=== PATIENT | male | born 1970 | race Caucasian/White ===

== ENCOUNTER 2019-04-19 11:00 | Outpatient (RCR) | payer SELFPAY | END 2019-05-19 00:01 | LOC: CR 11:00 | PROVIDERS: Family Provider Internal Medicine; Referring Provider Internal Medicine Cardiovascular Disease; Visit Provider Internal Medicine Cardiovascular Disease | DX: I20.8 Other forms of angina pectoris (principal) | CPT/HCPCS: 93798 ×9 ==

== ENCOUNTER 2019-05-26 09:32 | Outpatient (RCR) | payer SELFPAY | END 2019-06-19 23:59 | disposition home or self-care (01) | LOC: CR 09:32 | PROVIDERS: Family Provider Internal Medicine; PCP Internal Medicine; Referring Provider Internal Medicine Cardiovascular Disease; Visit Provider Internal Medicine Cardiovascular Disease | DX: I20.8 Other forms of angina pectoris (principal) ==

== ENCOUNTER 2019-06-08 07:18 | Day surgery (SDC) | payer MEDICARE, SELFPAY ==
[2019-06-05 12:13] VITALS: BMI 35.8
[2019-06-08 07:40] VITALS: BP 147/86; PULSE 77; RESP 18; TEMP 36.7; O2SAT 99
--- NOTE | 2019-06-08 08:06 | PM.HPUD ---
H&P update H&P Update: DATE OF SURGERY/PROCEDURE: 06/08/19 DATE H&P PERFORMED: 06/01/19 H&P UPDATE INFORMATION: H&P completed within last 30 days and No changes to prior documentation PLANNED PROCEDURE: Operation Date: 06/08/19 08:55 Proposed Procedures p Excision Mass/Lesion/Cyst Upper Torso/He/Back(Not Applicable) - Juventino Lopez MD Full H&P Perinent History: Medical/Surgical History: Medical History (Updated 06/01/19 @ 17:13 by Juventino Lopez MD) Anemia (Acute) CAD (coronary artery disease) (Acute) Cardiomyopathy (Acute) CHF (congestive heart failure) (Acute) Chronic anticoagulation (Acute) CKD (chronic kidney disease) (Acute) Compartment syndrome (Acute) Depression (Acute) Diabetes (Acute) Foot drop, left (Acute) H/O acute myocardial infarction (Acute) H/O deep venous thrombosis (Acute) Hyperlipidemia (Acute) Hypertension (Acute) Hypothyroidism (Acute) Osteoarthritis of spine (Acute) Port-A-Cath in place (Acute) Subcutaneous mass of back (Acute) Family History: Family History (Updated 06/01/19 @ 13:29 by HUSSEIN Alvarez) Grandfather Cancer skin cancer Parkinson disease Brother Hypertension Father Heart disease Mother Hypertension Stroke Aneurysm Grandmother Aneurysm Other Crohn disease Denies family history of Anesthesia complication Bleeding disorder Social History: Social History Smoking and tobacco status: never smoked Alcohol intake: former Former alcohol use details: Only holidays Lives independently: Yes Household members: significant other Marital status: Single Current occupational status: disabled History of recent travel: No
--- NOTE | 2019-06-08 08:08 | ANES.PREANES ---
Pre-Anesthetic Assessment Pre-Anesthetic Assessment: Height/Weight: Height 1.68 m Weight 100.698 kg Preop Diagnosis: Mass back Proposed Procedure: Operation Date: 06/08/19 08:55 Proposed Procedures p Excision Mass/Lesion/Cyst Upper Torso/He/Back(Not Applicable) - Juventino Lopez MD Last intake: Intake Last Liquid Date 06/08/19 Last Liquid Time 05:30 Last Solid Date 06/07/19 Last Solid Time 19:00 Social: Social History: No alcohol and No tobacco Exam: Pre-Anes Outpt Exam: alert, oriented x 3, clear to auscultation bilaterally and regular rate & rhythm Airway: Submandibular: WNL Cervical ROM: WNL MP: 2 Dentition: Chipped History/ROS: No significant history except as noted Pulmonary: Pulmonary: Sleep apnea CV/HEM: CV/HEM: CAD, CHF, DVT, HTN and FL Comments: PE : : Chronic renal Insufficiency (stg 3) Hepatic: Hepatic: None reported GI: GI: None reported Metabolic: Metabolic: DM, Hyperlipidemia, Morbid obesity and Thyroid Musc/skel: Musc/skel: Lower Back Pain, OA/DJD and Weakness (Left foot) Neuropsych: Neuropsych: Anxiety, Depression and Neuropathy (Left foot) Anesthetic Plan: Anesthesia: MAC Risk of > 500 ml blood loss (7ml/kg in children): No PFSH Anesthesia PFSH: Medical History Anemia (Acute) CAD (coronary artery disease) (Acute) Cardiomyopathy (Acute) CHF (congestive heart failure) (Acute) Chronic anticoagulation (Acute) CKD (chronic kidney disease) (Acute) Compartment syndrome (Acute) Depression (Acute) Diabetes (Acute) Foot drop, left (Acute) H/O acute myocardial infarction (Acute) H/O deep venous thrombosis (Acute) Hyperlipidemia (Acute) Hypertension (Acute) Hypothyroidism (Acute) Osteoarthritis of spine (Acute) Port-A-Cath in place (Acute) Subcutaneous mass of back (Acute) Surgical History H/O colonoscopy (Acute) 08/2015 H/O esophagogastroduodenoscopy (Acute) 08/2015 H/O removal of testicle (Acute) left H/O skin graft (Acute) H/O vasectomy (Acute) History of appendectomy (Acute) History of coronary artery stent placement (Acute) 5x History of inguinal hernia repair, bilateral (Acute) 1999 History of removal of Port-a-Cath (Acute) Hx of cholecystectomy (Acute) Family History Grandfather Cancer skin cancer Parkinson disease Brother Hypertension Father Heart disease Mother Hypertension Stroke Aneurysm Grandmother Aneurysm Other Crohn disease Denies family history of Anesthesia complication Bleeding disorder Social History Smoking and tobacco status: never smoked Alcohol intake: former Former alcohol use details: Only holidays Lives independently: Yes Household members: significant other Marital status: Single Current occupational status: disabled History of recent travel: No Data Anesthesia Cardiac Studies: No Data to Display
[2019-06-08 08:26] LABS: Glucose Point of Care 172 mg/dL (70-110)
[2019-06-08] MEDS: sodium chloride 0.9% 1,000 ML 30 ML IV (08:54)
[2019-06-08] MEDS: lidocaine 1% INJ 20 mL SUBCUT (09:25)
--- NOTE | 2019-06-08 09:54 | PM.OP ---
Operative Report Date of procedure: 06/08/19 Pre-op Diagnosis: Mass back Post-op Diagnosis: 6 x 6 cm lipoma on the back Procedure Done: Excision of subcutaneous mass on the back Specimens removed/disposition: Subcutaneous mass on the back Surgeon: Juventino Lopez Anesthesia: MAC Estimated blood loss (mL): 10 Condition: stable Disposition: same day Procedure: The patient was taken to the operating room and placed in the right lateral position under MAC after IV antibiotic had been administered. The area around the palpable mass was prepped and draped in a sterile manner. A 5 cm transverse incision was made using 15 blade, subcutaneous tissue was divided using electrocautery and the lipoma was dissected free from the surrounding subcutaneous tissue and underlying muscular fascia. The wound was irrigated saline, hemostasis ensured and subcutaneous tissue was approximated using running 3-0 Vicryl suture and skin was closed using running subcuticular 4-0 Monocryl suture and surgical glue. Pressure dressings were applied. Patient was stable throughout the procedure.
[2019-06-08 09:59] VITALS: BP 105/73; PULSE 78; RESP 18; TEMP 36.2; O2SAT 94
[2019-06-08 10:13] VITALS: BP 127/68; PULSE 78; RESP 18; O2SAT 95
== END 2019-06-08 10:30 | disposition home or self-care (01) ==
PROVIDERS: Family Provider Internal Medicine; PCP Internal Medicine; Visit Provider Surgery
PROC: (CPT 11406; principal; 2019-06-08 08:55)
DX: D17.1 Benign lipomatous neoplasm of skin and subcutaneous tissue of trunk (principal); I25.10 Atherosclerotic heart disease of native coronary artery without angina pectoris; E11.22 Type 2 diabetes mellitus with diabetic chronic kidney disease; I13.0 Hypertensive heart and chronic kidney disease with heart failure and stage 1 through stage 4 chronic kidney disease, or unspecified chronic kidney disease; N18.9 Chronic kidney disease, unspecified; I50.9 Heart failure, unspecified; Z86.718 Personal history of other venous thrombosis and embolism; E78.5 Hyperlipidemia, unspecified; E03.9 Hypothyroidism, unspecified; M19.90 Unspecified osteoarthritis, unspecified site; Z82.49 Family history of ischemic heart disease and other diseases of the circulatory system; Z79.84 Long term (current) use of oral hypoglycemic drugs; Z79.01 Long term (current) use of anticoagulants
CPT/HCPCS: 11406; 12032; 12345; 36416; 82962; 88309; 96365; 96372; J0690; J1642; J2001; J2250; J2704; J3010; J3490; J7030

== ENCOUNTER 2019-06-22 10:24 | Outpatient (RCR) | payer SELFPAY | END 2019-07-18 23:59 | disposition home or self-care (01) | LOC: CR 10:24 | PROVIDERS: Family Provider Internal Medicine; PCP Internal Medicine; Referring Provider Internal Medicine Cardiovascular Disease; Visit Provider Internal Medicine Cardiovascular Disease | DX: I20.8 Other forms of angina pectoris (principal) ==

== ENCOUNTER 2019-07-06 07:37 | Outpatient (CLI) | payer MEDICARE, MEDICAID, SELFPAY ==
[2019-07-06 07:47] VITALS: BP 141/58; PULSE 81; RESP 16; TEMP 36.5; O2SAT 99; BMI 36.9
[2019-07-06 08:13] LABS: Estmated Average Glucose 160; Hemoglobin A1C 7.2 % (4.0-6.0); INR 1.22 (0.8-1.2)
[2019-07-06 08:29] LABS: Alanine Aminotransferase 25 U/L (0-41); Albumin Level 3.8 g/dL (3.5-5.2); Alkaline Phosphatase 120 IU/L (40-130); Anion Gap 17.2 (5-19); Aspartate Amino Transferase 24 U/L (0-40); Blood Urea Nitrogen 30 mg/dL (6-20); Calcium 9.4 mg/dL (8.5-10.5); Carbon Dioxide 25 mmol/L (22-29); Chloride 105 mmol/L (98-107); Creatinine Clr Calc Pharmacy 61.6736; Globulin 2.8 g/dL (1.3-4.6); Glomerular Filtration Rate 45.8 mL/min (90-130); Glucose 228 mg/dL (65-115); Potassium 4.2 mmol/L (3.5-5.1); Sodium 143 mmol/L (136-145); Thyroid Stimulating Hormone 2.27 uIU/mL (0.27-4.20); Total Bilirubin 0.5 mg/dL (0.15-1.2); Total Protein 6.6 g/dL (6.6-8.7)
== END 2019-07-06 07:38 | disposition home or self-care (01) ==
PROVIDERS: Family Provider Internal Medicine; PCP Internal Medicine; Visit Provider Internal Medicine
DX: N18.9 Chronic kidney disease, unspecified (principal); I25.10 Atherosclerotic heart disease of native coronary artery without angina pectoris; E11.9 Type 2 diabetes mellitus without complications; E03.9 Hypothyroidism, unspecified
CPT/HCPCS: 36591; 80053; 83036; 84443; 85610

== ENCOUNTER 2019-07-09 17:22 | Emergency (ER) | payer MEDICARE, MEDICAID, SELFPAY ==
[2019-07-09] VITALS (7 sets, daily range): BP systolic 142–157; BP diastolic 80–89; PULSE 79–91; RESP 16–18; TEMP 36.4; O2SAT 94–97; BMI 36.9
--- NOTE | 2019-07-09 18:33 | ECG_ITS ---
Measurements Intervals [place] Rate: 85 P: 0 [place]: 174 QRS: -15 QRSD: 106 T: 56 QT: 358 QTc: 426 SINUS RHYTHM POSSIBLE ANTERIOR MYOCARDIAL INFARCTION [30 ms Q WAVE IN V3/V4, OR R < 0.2 mV IN V4], PROBABLY OLD INTERPRETATION BASED ON A DEFAULT AGE OF 40 YEARS Compared to ECG 02/26/2019 13:57:42 Right-axis deviation no longer present Myocardial infarct finding still present Electronically Signed On 07-10-2019 14:11:10 ECOLOGY PROFESSOR by Vinayak Bejarano M.D. [email or web address]
--- NOTE | 2019-07-09 18:38 | ED_ITS ---
Entered by Ciara Retana, acting as scribe for Sean Miller MD, [facility] [place] Jul 09, 2019 17:22 HPI - Chest Pain General: Chief Complaint: Chest Pain Stated Complaint: CP, HTN Time Seen by Provider: 07/09/19 18:38 Source: patient Mode of arrival: ambulatory Limitations: no limitations History of Present Illness: HPI narrative: 49 yo Male presents to ED with complaint of chest pain. Pt states that his pain is severe at times. Pt states that he has taken 4 nitros and his pain is down to a 3/10. Pt states his pain started about 3 hours ago. Pt states that he was doing [employer] work at [employer] when he started having his pains. Pt states that he has had nausea and weakness. Pt states that he had an extreme headache before the nitro and he has tightness and pressure in his chest. Pt states that the pain radiates into his left arm, jaw, and upper back. MD complaint: chest pain Pertinent past history: coronary artery disease Onset (ago): hour(s) (3) Timing of current episode: episodic and still present Prior episodes: Yes Onset: during rest Pain location: left chest Pain radiation: left arm, back, neck and jaw/teeth Pain scale (0-10): 3 Quality: tightness Relieving factors: nitroglycerin Exacerbating factors: nothing Context: history of DVT/PE Associated symptoms: Reports nausea; Deny abdominal pain, dyspnea, fever(s), palpitations or vomiting Treatment prior to arrival: nitroglycerin Risk Factors: Pulmonary embolism risk factors: history of pulmonary embolism Review of Systems General: Reports: 10 or more systems reviewed and unremarkable except in HPI and below Const: Denies: fever, chills or body aches Eyes: Denies: change in vision or blurry vision ENMT: Denies: throat pain, enlarged tonsils, painful swallowing, hoarseness, mouth pain or swelling of lips/tongue Card: Reports: chest pain; Denies: palpitations, irregular heart rhythm, edema or swelling of feet/ankles Resp: Denies: shortness of breath, productive cough or non-productive cough GI: Reports: nausea; Denies: abdominal pain or vomiting : Denies: flank pain, painful urination, urinary frequency, urinary urgency or urinary hesitancy Musc: Denies: neck pain, back pain or extremity swelling Skin/Breast: Denies: rash, itching or redness Neuro: Denies: headache, numbness in extremities or weakness in extremities Endo: Denies: excessive urination, excessive thirst or tired all the time PFSH ED PFSH: Medical History Anemia CAD (coronary artery disease) Cardiomyopathy CHF (congestive heart failure) Chronic anticoagulation CKD (chronic kidney disease) Compartment syndrome Depression Diabetes Foot drop, left H/O acute myocardial infarction H/O deep venous thrombosis Hyperlipidemia Hypertension Hypothyroidism Osteoarthritis of spine Port-A-Cath in place Subcutaneous mass of back Lipoma Surgical History H/O colonoscopy 08/2015 H/O esophagogastroduodenoscopy 08/2015 H/O removal of testicle left H/O skin graft H/O vasectomy History of appendectomy History of coronary artery stent placement 5x History of excision of mass 06/08/2019: Subcutaneous mass on back History of inguinal hernia repair, bilateral 2000 History of removal of Port-a-Cath Hx of cholecystectomy Family History Grandfather Cancer skin cancer Parkinson disease Brother Hypertension Father Heart disease Mother Hypertension Stroke Aneurysm Grandmother Aneurysm Other Crohn disease Denies family history of Anesthesia complication Bleeding disorder Social History Smoking and tobacco status: never smoked Alcohol intake: former Former alcohol use details: Only holidays Lives independently: Yes Household members: significant other Marital status: Single Current occupational status: disabled History of recent travel: No Physical Exam Const: COMMON NORMALS: no apparent distress, average body habitus, oriented x3, no limitations, healthy appearing, alert and well nourished HENMT: COMMON NORMALS: normocephalic, head/scalp atraumatic and moist oral mucous membranes HEAD & SCALP: normocephalic and atraumatic Eye: COMMON NORMALS: PERRL, EOMs intact bilaterally, conjunctivae normal and no scleral icterus CONJUNCTIVA: Yes conjunctivae normal PUPIL: Yes PERRL Neck/C-Spine: COMMON NORMALS: full ROM, supple, no meningeal signs, no JVD and no carotid bruits Chest: COMMONS NORMALS: inspection of chest normal and palpation of chest normal Resp: COMMON NORMALS: normal respiratory effort, no retractions, no use of accessory muscles, clear to auscultation bilaterally and percussion normal AUSCULTATION: clear to auscultation bilaterally PERCUSSION: percussion normal Cardio: COMMON NORMALS: no JVD, regular rate, regular rhythm, S1 normal heart sound, S2 normal heart sound, no gallops, no clicks, no murmurs, no rub and peripheral pulses 2+ throughout RATE: regular rate RHYTHM: regular rhythm HEART SOUNDS: S1 normal and S2 normal PERIPHERAL PULSES: pulses 2+ throughout GI: COMMON NORMALS: normal to inspection, nondistended, normoactive bowel sounds, soft to palpation, no hepatosplenomegaly, no masses and no bruits PALPATION: Yes soft, Yes tender Details: other (epigastric) and Yes no hepatosplenomegaly : COMMON NORMALS: Yes no CVA tenderness BLADDER/KIDNEY EXAM: Yes no CVA tenderness Back/Pelvis: COMMON NORMALS: no CVA tenderness Extremity: COMMON NORMALS: normal to inspection, full ROM, normal capillary refill, no calf tenderness and no pedal edema Neuro: COMMON NORMALS: oriented x3 SENSORIUM/ORIENTATION: Yes alert MENINGEAL SIGNS: Yes no meningeal signs Skin: COMMON NORMALS: no rashes or lesions noted, no wounds, skin turgor normal, no jaundice, no petechiae and no mottling GENERAL SKIN EXAM: no rashes or lesions noted and turgor normal Course Vital Signs: Vital signs: Vital Signs Temperature 97.5 F L 07/09/19 17:28 Pulse Rate 91 07/09/19 17:28 Respiratory Rate 16 07/09/19 17:28 Blood Pressure 151/89 07/09/19 17:28 Pulse Oximetry 97 07/09/19 17:28 MDM - Chest Pain MDM Narrative: Medical decision making narrative: 49 year old male with a history of CAD who presents to the ED with complaints of chest pain. Evaluation in the ED shows a normal d-dimer, normal chest CT, mildly elevated troponin with a flat delta. Mildly elevated lipase. He is managed as a case of mild pancreatitis. After I discussed this with him he said he has been having some abdominal symptoms which he did not tell me before. We will discharge him home on oral pain medication. He is to start on a liquid diet and advance his diet. Is also to follow-up with his primary care provider. Lab Data: Labs: Lab Results 07/09/19 07/09/19 07/09/19 Range/Units 18:45 18:45 18:45 WBC 8.8 (4.0-10.0) 10^3/ uL RBC 4.02 L (4.1-5.3) 10^6/u L Hgb 11.3 L (11.7-16.6) g/dL Hct 34.5 L (42.0-52.0) % MCV 85.8 (80-94) fL MCH 28.1 (28.0-34.0) pg MCHC 32.8 (30.0-36.0) g/dL RDW 14.9 (12.1-15.1) % Plt Count 295 (130-400) 10^3/c mm MPV 9.2 (7.4-10.4) fL Neut % (Auto) 63.6 % Lymph % (Auto) 24.7 % [place] % (Auto) 8.1 % Eos % (Auto) 2.4 % Baso % (Auto) 1.0 % Neut # (Auto) 5.6 (1.8-7.7) 10^3/u L Lymph # (Auto) 2.2 (0.8-4.8) 10^3/u L [place] # (Auto) 0.7 (0.2-0.9) 10^3/u L Eos # (Auto) 0.2 (0.0-0.8) 10^3/u L Baso # (Auto) 0.1 (0.0-0.1) 10^3/u L Nucleated RBC % (a uto) 0 % Nucleated RBCs # 0.0 /100WBC D-Dimer <= 0.27 (0-0.59) ug/mIFE U Sodium (136-145) mmol/L Potassium (3.5-5.1) mmol/L Chloride (98-107) mmol/L Carbon Dioxide (22-29) mmol/L Anion Gap (5-19) BUN (6-20) mg/dL Creatinine (0.7-1.2) mg/dL GFR Calculation (90-130) mL/min Glucose (65-115) mg/dL Calcium (8.5-10.5) mg/dL Total Bilirubin (0.15-1.2) mg/dL AST (0-40) U/L ALT (0-41) U/L Alkaline Phosphata se (40-130) IU/L Troponin T Baselin e 26 H (0-15) ng/mL Troponin T 120 Min [place] (0-15) ng/mL Delta Troponin T (0-10) ABS# Total Protein (6.6-8.7) g/dL Albumin (3.5-5.2) g/dL Globulin (1.3-4.6) g/dL Lipase (13-60) U/L 07/09/19 07/09/19 Range/Units 18:45 20:40 WBC (4.0-10.0) 10^3/ uL RBC (4.1-5.3) 10^6/u L Hgb (11.7-16.6) g/dL Hct (42.0-52.0) % MCV (80-94) fL MCH (28.0-34.0) pg MCHC (30.0-36.0) g/dL RDW (12.1-15.1) % Plt Count (130-400) 10^3/c mm MPV (7.4-10.4) fL Neut % (Auto) % Lymph % (Auto) % [place] % (Auto) % Eos % (Auto) % Baso % (Auto) % Neut # (Auto) (1.8-7.7) 10^3/u L Lymph # (Auto) (0.8-4.8) 10^3/u L [place] # (Auto) (0.2-0.9) 10^3/u L Eos # (Auto) (0.0-0.8) 10^3/u L Baso # (Auto) (0.0-0.1) 10^3/u L Nucleated RBC % (a uto) % Nucleated RBCs # /100WBC D-Dimer (0-0.59) ug/mIFE U Sodium 135 L (136-145) mmol/L Potassium 3.9 (3.5-5.1) mmol/L Chloride 100 (98-107) mmol/L Carbon Dioxide 22 (22-29) mmol/L Anion Gap 16.9 (5-19) BUN 30 H (6-20) mg/dL Creatinine 1.5 H (0.7-1.2) mg/dL GFR Calculation 49.3 L (90-130) mL/min Glucose 119 H (65-115) mg/dL Calcium 9.7 (8.5-10.5) mg/dL Total Bilirubin 0.5 (0.15-1.2) mg/dL AST 20 (0-40) U/L ALT 20 (0-41) U/L Alkaline Phosphata se 133 H (40-130) IU/L Troponin T Baselin e (0-15) ng/mL Troponin T 120 Min [place] 26.58 H (0-15) ng/mL Delta Troponin T 0.58 (0-10) ABS# Total Protein 6.9 (6.6-8.7) g/dL Albumin 3.9 (3.5-5.2) g/dL Globulin 3.0 (1.3-4.6) g/dL Lipase 80 H (13-60) U/L Imaging Data^: CT Chest: Radiologist's impression: [place] [address] CT Scan Report Signed Patient: Rei Queen IIUnit #: [id number] : 1970Acct#:[id number] Age/Sex: 49 / MADM Date: 07/09/19 [facility] Attending Dr: Ordering Provider/Ordering MD: Sean Miller MD, [facility] [place] Date of Service: 07/09/19 Procedure(s): CT chest [facility] [address] Accession Number(s): [id number] Report Number: [id number] PROCEDURE INFORMATION: Exam: CT Chest Without Contrast Exam date and time: 07/09/2019 9:35 PM Age: 49 years old Clinical indication: Chest pain; Prior surgery; Surgery type: Cabg, port; Additional info: Chest pain, shortness of breath. TECHNIQUE: Imaging protocol: Computed tomography of the chest without contrast. Total DLP: 906.33 mGy-cm Radiation optimization: All CT scans at this facility use at least one of these dose optimization techniques: automated exposure control; mA and/or kV adjustment per patient size (includes targeted exams where dose is matched to clinical indication); or iterative reconstruction. COMPARISON: CTA Chest-Pulmonary Emb [id number] 02/26/2019 2:22 PM FINDINGS: Tubes, catheters and devices: There is a left-sided [id number] with tip in the superior vena cava. Lungs: There are moderate emphysematous changes. There is some dependent atelectasis. No airspace consolidation. Pleural space: Unremarkable. No pneumothorax. No pleural effusion. Heart: Sternotomy wires and mediastinal surgical clips are present, consistent with previous coronary arterial bypass grafting. Mediastinum: A small hiatal hernia is present. Aorta: Unremarkable. No aortic aneurysm. Lymph nodes: Unremarkable. No enlarged lymph nodes. Gallbladder and bile ducts: There has been a cholecystectomy. Bones/joints: Moderate degenerative changes are noted in the spine. No acute fracture. Soft tissues: Unremarkable. Other findings: There are calcified granulomas. No significant pneumonitis. CT/CT chest wo con [id number] IMPRESSION: Mild volume loss in the lungs. No acute abnormality. Radiation Dose CTDIVOL = (mGy): DLP = 906.33 (mGy-cm) Dictated By:Nhung Rodriguez Signed By:Rae Rodriguezigned Date/Time:07/09/192217 DD/ 15 EKG Data^: EKG 1: Attestation: I personally reviewed and interpreted this EKG as follows: EKG interpretation date: 07/09/19 EKG interpretation time: 17:59 Prior EKG tracings: not available for review Interpretation: Normal sinus rhythm. Heart rate 85 bpm. Normal axis. No acute ST changes. EKG 2: Attestation: I personally reviewed and interpreted this EKG as follows: EKG interpretation date: 07/09/19 EKG interpretation time: 20:11 Prior EKG tracings: available for review Interpretation: Unchanged from earlier today Discharge Plan Discharge Patient Disposition: Home, Self-Care Clinical Impression: Acute pancreatitis Qualifiers: Pancreatitis type: unspecified pancreatitis type Acute pancreatitis complication: no infection or necrosis Qualified Code(s): K85.90 - Acute pancreatitis without necrosis or infection, unspecified Condition: Stable Prescriptions: New [place] 5-325 mg tablet 1 tab PO Q8H PRN (Reason: pancreatitis) Qty: 10 RF: 0 Continued (DME) diabetic shoes Qty: 1 RF: 0 promethazine 25 mg tablet 25 mg PO Q6H PRN (Reason: Nausea And Vomiting) RF: 0 multivitamin [Daily Multi-Vitamin] Tablet 1 tab PO QAM RF: 0 methocarbamol 750 mg tablet 750 mg PO TID PRN (Reason: Muscle Spasm) RF: 0 glipizide 10 mg tablet 10 mg PO ONCE RF: 0 levothyroxine 88 mcg capsule 88 mcg PO ONCE RF: 0 Eliquis 5 mg tablet 5 mg PO BID RF: 0 isosorbide dinitrate 30 mg tablet 30 mg PO BID RF: 0 metoprolol tartrate 50 mg tablet 50 mg PO BID RF: 0 nitroglycerin [Nitrostat] 0.4 mg tablet, sublingual 0.4 mg SUBLINGUAL Q5M PRN (Reason: Chest Pain) RF: 0 metformin 500 mg tablet 500 mg PO BID RF: 0 Trulicity 0.75 mg/0.5 mL pen injector 0.75 mg SUBCUT ONCE RF: 0 furosemide [Lasix] 40 mg tablet 40 mg PO QAM RF: 0 amlodipine 5 mg tablet 5 mg PO ONCE RF: 0 aspirin 81 mg tablet,delayed release (DR/EC) 81 mg PO ONCE RF: 0 atorvastatin 40 mg tablet 40 mg PO ONCE RF: 0 hydralazine 25 mg tablet 25 mg PO BID RF: 0 tramadol 50 mg PO TID PRN (Reason: Pain) RF: 0 hydrocodone-acetaminophen [[place]] 5-325 mg tablet 1 tab PO Q6H Qty: 20 RF: 0 Discharge Orders: Discharge Order (Routine); Ordered 07/09/19 Ordered By: Sean Miller Referrals: Kp Montanez DO [Primary Care Provider] - 1-3 days Patient Instructions: Pancreatitis (ED) Activity Restrictions/Additional Instructions: Return for any new or worsening symptoms. Start with a liquid diet tomorrow and gradually advance your diet to regular foods if you have no nausea or vomiting. Take the pain medication as needed for pain. Coding Level of Care Code ED [employer] Lecturer for Chg Fwd Exam Comprehensive The documentation recorded by the Lainey contreras Carmen, accurately reflects the service I personally performed and the decisions made by Paul gallegos Adegoke I, MD, [facility] [place] Jul 09, 2019 17:22
[2019-07-09 19:16] LABS: Basophils # 0.1 10^3/uL (0.0-0.1); Eosinophils # 0.2 10^3/uL (0.0-0.8); Eosinophils % 2.4 %; Hematocrit 34.5 % (42.0-52.0); Hemoglobin 11.3 g/dL (11.7-16.6); Lymphocytes # 2.2 10^3/uL (0.8-4.8); Lymphocytes % 24.7 %; Mean Corpuscular HGB Conc 32.8 g/dL (30.0-36.0); Mean Corpuscular Hemoglobin 28.1 pg (28.0-34.0); Mean Corpuscular Volume 85.8 fL (80-94); Mean Platelet Volume 9.2 fL (7.4-10.4); Monocytes # 0.7 10^3/uL (0.2-0.9); Monocytes % 8.1 %; Neutrophils # 5.6 10^3/uL (1.8-7.7); Neutrophils % 63.6 %; Nucleated Red Blood Cells % 0 %; Platelet Count 295 10^3/cmm (130-400); Red Blood Count 4.02 10^6/uL (4.1-5.3); Red Cell Distribution Width 14.9 % (12.1-15.1); White Blood Count 8.8 10^3/uL (4.0-10.0)
[2019-07-09 19:26] LABS: D Dimer <= 0.27 ug/mIFEU (0-0.59)
[2019-07-09] MEDS: promethazine 25 mg/mL SDV 1 mL IM (19:28)
[2019-07-09 19:30] LABS: Alanine Aminotransferase 20 U/L (0-41); Albumin Level 3.9 g/dL (3.5-5.2); Alkaline Phosphatase 133 IU/L (40-130); Anion Gap 16.9 (5-19); Aspartate Amino Transferase 20 U/L (0-40); Blood Urea Nitrogen 30 mg/dL (6-20); Calcium 9.7 mg/dL (8.5-10.5); Carbon Dioxide 22 mmol/L (22-29); Chloride 100 mmol/L (98-107); Glomerular Filtration Rate 49.3 mL/min (90-130); Glucose 119 mg/dL (65-115); Lipase 80 U/L (13-60); Potassium 3.9 mmol/L (3.5-5.1); Sodium 135 mmol/L (136-145); Total Bilirubin 0.5 mg/dL (0.15-1.2); Total Protein 6.9 g/dL (6.6-8.7)
[2019-07-09] MEDS: nitroglycerin 1 gm/inch oint Pkt 1 INCH TOPICAL (19:30)
[2019-07-09 19:45] LABS: Troponin(5th) Baseline 26 ng/mL (0-15)
--- NOTE | 2019-07-09 20:33 | ECG_ITS ---
Measurements Intervals [place] Rate: 78 P: 6 [place]: 180 QRS: -2 QRSD: 90 T: 56 QT: 379 QTc: 433 SINUS RHYTHM POSSIBLE ANTERIOR MYOCARDIAL INFARCTION , OF INDETERMINATE AGE [30 ms Q WAVE IN V3 V3/V4, OR R < 0.2 mV IN V4] Compared to ECG 02/26/2019 13:57:42 Right-axis deviation no longer present Myocardial infarct finding still present Electronically Signed On 07-10-2019 14:14:14 DATA VISUALIZATION DEVELOPER by Vinayak Bejarano M.D. [email or web address]
--- NOTE | 2019-07-09 21:14 | CTR_ITS ---
PROCEDURE INFORMATION: Exam: CT Chest Without Contrast Exam date and time: 07/09/2019 9:35 PM Age: 49 years old Clinical indication: Chest pain; Prior surgery; Surgery type: Cabg, port; Additional info: Chest pain, shortness of breath. TECHNIQUE: Imaging protocol: Computed tomography of the chest without contrast. Total DLP: 906.33 mGy-cm Radiation optimization: All CT scans at this facility use at least one of these dose optimization techniques: automated exposure control; mA and/or kV adjustment per patient size (includes targeted exams where dose is matched to clinical indication); or iterative reconstruction. COMPARISON: CTA Chest-Pulmonary Emb [id number] 02/26/2019 2:22 PM FINDINGS: Tubes, catheters and devices: There is a left-sided [id number]-Wbpx with tip in the superior vena cava. Lungs: There are moderate emphysematous changes. There is some dependent atelectasis. No airspace consolidation. Pleural space: Unremarkable. No pneumothorax. No pleural effusion. Heart: Sternotomy wires and mediastinal surgical clips are present, consistent with previous coronary arterial bypass grafting. Mediastinum: A small hiatal hernia is present. Aorta: Unremarkable. No aortic aneurysm. Lymph nodes: Unremarkable. No enlarged lymph nodes. Gallbladder and bile ducts: There has been a cholecystectomy. Bones/joints: Moderate degenerative changes are noted in the spine. No acute fracture. Soft tissues: Unremarkable. Other findings: There are calcified granulomas. No significant pneumonitis. CT/CT chest [facility] [id number] IMPRESSION: Mild volume loss in the lungs. No acute abnormality. Radiation Dose CTDIVOL = (mGy): DLP = 906.33 (mGy-cm)
[2019-07-09 21:18] LABS: Troponin 5 2HR 26.58 ng/mL (0-15); Troponin 5 2HR Delta 0.58 ABS# (0-10)
[2019-07-10 00:06] VITALS: BP 129/89; PULSE 83; RESP 16; TEMP 36.6; O2SAT 96
== END 2019-07-09 23:19 | disposition home or self-care (01) ==
PROVIDERS: Emergency Medicine; Emergency Provider Family Medicine; Family Provider Internal Medicine; PCP Internal Medicine
DX: K85.90 Acute pancreatitis without necrosis or infection, unspecified (principal); I25.10 Atherosclerotic heart disease of native coronary artery without angina pectoris; I42.9 Cardiomyopathy, unspecified; I13.0 Hypertensive heart and chronic kidney disease with heart failure and stage 1 through stage 4 chronic kidney disease, or unspecified chronic kidney disease; E11.22 Type 2 diabetes mellitus with diabetic chronic kidney disease; N18.9 Chronic kidney disease, unspecified; I25.2 Old myocardial infarction; E78.5 Hyperlipidemia, unspecified; E03.9 Hypothyroidism, unspecified; Z79.01 Long term (current) use of anticoagulants; Z79.84 Long term (current) use of oral hypoglycemic drugs; Z79.82 Long term (current) use of aspirin; Z86.718 Personal history of other venous thrombosis and embolism; Z86.711 Personal history of pulmonary embolism; Z82.49 Family history of ischemic heart disease and other diseases of the circulatory system
CPT/HCPCS: 71250; 80053; 83690; 84484; 85025; 85378; 93005; 96372; 96375; 99283; 99284; J2550

== ENCOUNTER 2019-07-20 11:01 | Outpatient (RCR) | payer SELFPAY | END 2019-08-18 23:59 | disposition home or self-care (01) | LOC: CR 11:01 | PROVIDERS: Family Provider Internal Medicine; PCP Internal Medicine; Referring Provider Internal Medicine Cardiovascular Disease; Visit Provider Internal Medicine Cardiovascular Disease | DX: I20.8 Other forms of angina pectoris (principal) ==

== ENCOUNTER 2019-08-05 13:47 | Outpatient (CLI) | payer MEDICARE, BC, MEDICAID, SELFPAY ==
[2019-08-05 11:05] VITALS: BP 132/67; PULSE 77; RESP 20; TEMP 36.3; O2SAT 99
[2019-08-05 13:32] VITALS: BMI 36.8
== END 2019-08-05 13:48 | disposition home or self-care (01) ==
LOC: GILAB 13:50
PROVIDERS: Family Provider Internal Medicine; PCP Internal Medicine; Visit Provider Internal Medicine
DX: Z45.2 Encounter for adjustment and management of vascular access device (principal)
CPT/HCPCS: 96368; 96523; J1642

== ENCOUNTER 2019-08-07 15:51 | Emergency (ER) | payer MEDICARE, SELFPAY ==
[2019-08-07 15:55] VITALS: BP 167/86; PULSE 87; RESP 16; TEMP 36.3; O2SAT 98; BMI 36.8
--- NOTE | 2019-08-07 16:07 | ED_ITS ---
Entered by Martina Quevedo, acting as scribe for Sean Miller MD, MSM HPI - Male Genitourinary General: Chief complaint: Urogenital-Male Stated complaint: right abd/testicle/groin pain Time Seen by Provider: 08/07/19 16:07 Source: patient and family Mode of arrival: ambulatory Limitations: no limitations History of Present Illness: HPI Narrative: 49-year-old male patient who presents to the emergency department with right testicular and groin pain. Symptoms started earlier today. Patient was resting when this happened. No prior history of testicular torsion or epididymitis. No trauma. He does have a prior history of an inguinal hernia. Pain radiates to his right flank region Complaint: testicle pain and other (groin pain, R flank) Radiation: right testicle, right flank and abdomen Quality: sharp Relieving factors: none Exacerbating factors: palpation and movement Associated symptoms: Deny dysuria, nausea or vomiting Review of Systems General: Reports: 10 or more systems reviewed and unremarkable except in HPI and below Const: Denies: fever, chills or body aches Eyes: Denies: change in vision or blurry vision ENMT: Denies: enlarged tonsils Card: Reports: chest pain; Denies: palpitations, irregular heart rhythm, edema or swelling of feet/ankles Resp: Denies: shortness of breath, productive cough or non-productive cough GI: Denies: nausea or vomiting : Denies: painful urination, urinary frequency, urinary urgency or urinary hesitancy Musc: Denies: neck pain or extremity swelling Skin/Breast: Denies: rash, itching or redness Neuro: Denies: headache, numbness in extremities or weakness in extremities Endo: Denies: excessive urination, excessive thirst or tired all the time PFS ED PFSH: Social History Smoking and tobacco status: never smoked Alcohol intake: former Former alcohol use details: Only holidays Lives independently: Yes Household members: significant other Marital status: Single Current occupational status: disabled History of recent travel: No Physical Exam Const: COMMON NORMALS: no apparent distress, average body habitus, oriented x3, no limitations, healthy appearing, alert and well nourished HENMT: COMMON NORMALS: normocephalic, head/scalp atraumatic and moist oral mucous membranes HEAD & SCALP: normocephalic and atraumatic Eye: COMMON NORMALS: PERRL, EOMs intact bilaterally, conjunctivae normal and no scleral icterus CONJUNCTIVA: Yes conjunctivae normal PUPIL: Yes PERRL Neck/C-Spine: COMMON NORMALS: full ROM, supple, no meningeal signs, no JVD and no carotid bruits Chest: COMMONS NORMALS: inspection of chest normal and palpation of chest normal Resp: COMMON NORMALS: normal respiratory effort, no retractions, no use of accessory muscles, clear to auscultation bilaterally and percussion normal AUSCULTATION: clear to auscultation bilaterally PERCUSSION: percussion normal Cardio: COMMON NORMALS: no JVD, regular rate, regular rhythm, S1 normal heart sound, S2 normal heart sound, no gallops, no clicks, no murmurs, no rub and peripheral pulses 2+ throughout RATE: regular rate RHYTHM: regular rhythm HEART SOUNDS: S1 normal and S2 normal PERIPHERAL PULSES: pulses 2+ throughout GI: INSPECTION: Yes normal to inspection PALPATION: Yes tender Details: RLQ : BLADDER/KIDNEY EXAM: Yes CVA tenderness PENIS: uncircumcised MEATUS: meatus normal SCROTUM: Yes testes descended bilaterally TESTES: Yes testicular lie normal, Yes testicular tenderness, No epididymal induration and No high-riding testicle Back/Pelvis: GENERAL BACK: Yes CVA tenderness CVA tenderness: right Extremity: COMMON NORMALS: normal to inspection, full ROM, normal capillary refill, no calf tenderness and no pedal edema Neuro: COMMON NORMALS: oriented x3 SENSORIUM/ORIENTATION: Yes alert MENINGEAL SIGNS: Yes no meningeal signs Skin: COMMON NORMALS: no rashes or lesions noted, no wounds, skin turgor normal, no jaundice, no petechiae and no mottling GENERAL SKIN EXAM: no rashes or lesions noted and turgor normal Course Reevaluation(s): Reevaluation #1: Discussed his lab and imaging findings with him. Negative for acute findings. We will discharge him home with no new orders. Time: 18:51 Vital Signs: Vital signs: Vital Signs Temperature 97.4 F L 08/07/19 15:55 Pulse Rate 82 08/07/19 19:17 Respiratory Rate 16 08/07/19 19:17 Blood Pressure 141/86 08/07/19 19:17 Pulse Oximetry 98 08/07/19 19:17 MDM - Male MDM Narrative: Medical decision making narrative: 55-year-old gentleman who is a frequent visitor to the emergency department with different pain complaints presents emergency department today with complaints of right scrotal pain radiating to the right groin and right flank region. Evaluation was negative for testicular torsion or epididymitis, kidney stone. Urine was negative for an infection or blood. He is discharged home with no new orders. The patient's vital signs remained stable throughout his ED stay. Medical Records: Attestation: I reviewed the patient's medical records. Lab Data: Attestation: I reviewed the patient's lab results. Labs: Lab Results 08/07/19 Range/Units 16:40 Urine Color Yellow (Yellow) Urine Appearance Clear (CLEAR) Urine pH 5 (5-7) Ur Specific Gravit y 1.015 (1.005-1.030) Urine Protein 3+ H (Negative) Urine Glucose (UA) 2+ (Normal) Urine Ketones Negative (Negative) Urine Blood Neg (Negative) Urine Nitrate Negative (Negative) Urine Bilirubin Neg (NEGATIVE) Urine Urobilinogen Norm (Negative) mg/dL Ur Leukocyte Carmen ase Negative (Negative) Urine RBC None (0-2) /hpf Urine WBC 0-4 H (0-5) /hpf Ur Squamous Epith Cells 0-4 H (0-5) Urine Bacteria Trace (NONE) Hyaline Casts 0-4 H Imaging Data: CT Abd/Pel: Radiologist's impression: [place] [address] CT Scan Report Signed Patient: Rei Queen IIUnit #: [id number] : 1970Acct#:[id number] Age/Sex: 49 / MADM Date: 08/07/19 Loc: ERRoom/Bed: Attending Dr: Ordering Provider/Ordering MD: Sean Miller MD, [facility] [place] Date of Service: 08/07/19 Procedure(s): CT kidney stone [id number] Accession Number(s): [id number] Report Number: [id number] PROCEDURE INFORMATION: Exam: CT Abdomen And Pelvis Without Contrast Exam date and time: 08/07/2019 5:22 PM Age: 49 years old Clinical indication: Abdominal pain; Right; Prior surgery; Surgery date: 6+ months; Surgery type: Gb, appy, hernia; Patient HX: C/O sudden onset R flank/groin/testicle pain; Additional info: Flank pain TECHNIQUE: Imaging protocol: Computed tomography of the abdomen and pelvis without contrast. Total DLP: 1960.12 mGy-cm Radiation optimization: All CT scans at this facility use at least one of these dose optimization techniques: automated exposure control; mA and/or kV adjustment per patient size (includes targeted exams where dose is matched to clinical indication); or iterative reconstruction. COMPARISON: CT Abdomen/Pelvis Renal [id number] 10/11/2018 6:58 PM ; 08/15/2018. FINDINGS: Liver: Hepatomegaly. Liver otherwise unremarkable. Gallbladder and bile ducts: Status post cholecystectomy. No intra or extrahepatic biliary ectasia identified. Pancreas: Pancreas unremarkable. No visible pancreatic ductal ectasia. Spleen: Splenic calcified granulomas. Spleen otherwise unremarkable. Adrenals: Stable small bilateral adrenal adenomas since 10/11/2018 and 08/15/2018. No further follow-up recommended. Kidneys and ureters: No visible hydronephrosis, hydroureter, ureterolithiasis, nephrolithiasis, nephrocalcinosis, or bladder stone. Mild bilateral perinephric stranding which is a nonspecific finding. Renal arterial sclerosis. Stomach and bowel: Mild diverticulosis coli without evidence for diverticulitis. Nonobstructive bowel pattern. No visible adynamic or reactive ileus. Appendix: The appendix is surgically absent. Intraperitoneal space: No visible intraperitoneal ascites. Vasculature: Limited assessment lung bases reveals 3 vessel coronary artery disease. The abdominal aorta is nonaneurysmal with demonstrates advanced arterial sclerotic disease. Bilateral iliac stents. Lymph nodes: No visible active panniculitis/mesenteritis or findings of mesenteric lymphadenitis/lymphadenopathy. Bladder: Unremarkable as visualized. Reproductive: Mild prostate hypertrophy. Bones/joints: No visible active musculoskeletal pathology. Moderate degenerative disease of the thoracic spine. Soft tissues: Unremarkable. CT/CT kidney stone [id number] IMPRESSION: 1. No visible hydronephrosis, hydroureter, ureterolithiasis, nephrolithiasis, nephrocalcinosis, or bladder stone. 2. Stable bilateral small adrenal adenomas. 3. Mild diverticulosis coli without evidence for diverticulitis. 4. Extensive arterial sclerotic disease. 5. Three-vessel coronary artery disease. 6. Other non urgent/nonemergent, chronic, and age related findings discussed in text above. Radiation Dose CTDIVOL = (mGy): DLP = 1960.12 (mGy-cm) US: Radiologist's impression: [address] [place] [address] Ultrasound Report Signed Patient: Rei Queen IIUnit #: [id number] : 1970Acct#:[id number] Age/Sex: 49 / MADM Date: 08/07/19 Loc: ERRoom/Bed: Attending Dr: Ordering Provider/Ordering MD: Sean Miller MD, [facility] [place] Date of Service: 08/07/19 Procedure(s): US scrotum [id number] Accession Number(s): [id number] Report Number: [id number] PROCEDURE INFORMATION: Exam: US Scrotum Exam date and time: 08/07/2019 5:00 PM Age: 49 years old Clinical indication: Groin pain and scrotum pain; Prior surgery; Surgery date: 6+ months; Surgery type: Left orchiectomy. ; Patient HX: Left orchiectomy with bilateral inguinal hernia repair. ; Additional info: Scrotal pain TECHNIQUE: Imaging protocol: Real-time ultrasound of the scrotum and contents with color Doppler and image documentation. COMPARISON: US Testicular [id number] 11/27/2018 9:28 PM FINDINGS: Right testicle: Normal. No mass. No torsion. Normal vascular flow. 5.2 cm x 2 cm x 2.5 cm Left testicle: Surgically absent Epididymides: Right side Normal. Status post resection of left epididymis Scrotum: Normal. Discharge Plan Discharge Patient Disposition: Home, Self-Care Clinical Impression: Rt groin pain Condition: Stable Prescriptions: Continued (DME) diabetic shoes Qty: 1 RF: 0 promethazine 25 mg tablet 25 mg PO Q6H PRN (Reason: Nausea And Vomiting) RF: 0 multivitamin [Daily Multi-Vitamin] Tablet 1 tab PO QAM RF: 0 methocarbamol 750 mg tablet 750 mg PO TID PRN (Reason: Muscle Spasm) RF: 0 glipizide 10 mg tablet 10 mg PO ONCE RF: 0 levothyroxine 88 mcg capsule 88 mcg PO ONCE RF: 0 Eliquis 5 mg tablet 5 mg PO BID RF: 0 isosorbide dinitrate 30 mg tablet 30 mg PO BID RF: 0 metoprolol tartrate 50 mg tablet 50 mg PO BID RF: 0 nitroglycerin [Nitrostat] 0.4 mg tablet, sublingual 0.4 mg SUBLINGUAL Q5M PRN (Reason: Chest Pain) RF: 0 metformin 500 mg tablet 500 mg PO BID RF: 0 Trulicity 0.75 mg/0.5 mL pen injector 0.75 mg SUBCUT ONCE RF: 0 furosemide [Lasix] 40 mg tablet 40 mg PO QAM RF: 0 amlodipine 5 mg tablet 5 mg PO ONCE RF: 0 aspirin 81 mg tablet,delayed release (DR/EC) 81 mg PO ONCE RF: 0 atorvastatin 40 mg tablet 40 mg PO ONCE RF: 0 hydralazine 25 mg tablet 25 mg PO BID RF: 0 Discharge Orders: Discharge Order (Routine); Ordered 08/07/19 Ordered By: Sean Miller Referrals: Kp Montanez DO [Primary Care Provider] - 7-10 days Patient Instructions: Abdominal Pain (ED), Groin Pain (ED) Activity Restrictions/Additional Instructions: Return for any new or worsening symptoms. Follow-up with your primary care provider within 1 week. Take Tylenol or ibuprofen as needed for pain. Discharge Date/Time: 08/07/19 19:19 Coding Level of Care Code ED Gerontology Aide for Chg Fwd Exam Comprehensive The documentation recorded by the Sae contreras Bridget Annette, accurately reflects the service I personally performed and the decisions made by Paul gallegos Adegoke I, MD, [facility] [place] Aug 07, 2019 15:51
--- NOTE | 2019-08-07 16:26 | PC.NURSE ---
Right flank, abdominal groin pain. Has history of kidney stones.
--- NOTE | 2019-08-07 16:36 | USR_ITS ---
PROCEDURE INFORMATION: Exam: US Scrotum Exam date and time: 08/07/2019 5:00 PM Age: 49 years old Clinical indication: Groin pain and scrotum pain; Prior surgery; Surgery date: 6+ months; Surgery type: Left orchiectomy. ; Patient HX: Left orchiectomy with bilateral inguinal hernia repair. ; Additional info: Scrotal pain TECHNIQUE: Imaging protocol: Real-time ultrasound of the scrotum and contents with color Doppler and image documentation. COMPARISON: US Testicular [id number] 11/27/2018 9:28 PM FINDINGS: Right testicle: Normal. No mass. No torsion. Normal vascular flow. 5.2 cm x 2 cm x 2.5 cm Left testicle: Surgically absent Epididymides: Right side Normal. Status post resection of left epididymis Scrotum: Normal. US/US scrotum [id number] IMPRESSION: 1. Negative right testicle and epididymis 2. Status post left testicular resection. 3. Otherwise negative examination a sugar
[2019-08-07 17:16] LABS: Glucose Urine UA 2+ (Normal); Protein Urine 3+ (Negative); Specific Gravity, Urine 1.015 (1.005-1.030); Urine Appearance Clear (CLEAR); Urine Color Yellow (Yellow); pH Urine 5 (5-7)
[2019-08-07 17:17] LABS: Add Urine Microscopic? YES; Bilirubin Urine Neg (NEGATIVE); Blood Urine Neg (Negative); Ketones Urine Negative (Negative); Leukocyte Esterase Urine Negative (Negative); Nitrate Urine Negative (Negative); Urobilinogen Urine Norm (Negative)
--- NOTE | 2019-08-07 17:21 | CTR_ITS ---
PROCEDURE INFORMATION: Exam: CT Abdomen And Pelvis Without Contrast Exam date and time: 08/07/2019 5:22 PM Age: 49 years old Clinical indication: Abdominal pain; Right; Prior surgery; Surgery date: 6+ months; Surgery type: Gb, appy, hernia; Patient HX: C/O sudden onset R flank/groin/testicle pain; Additional info: Flank pain TECHNIQUE: Imaging protocol: Computed tomography of the abdomen and pelvis without contrast. Total DLP: 1960.12 mGy-cm Radiation optimization: All CT scans at this facility use at least one of these dose optimization techniques: automated exposure control; mA and/or kV adjustment per patient size (includes targeted exams where dose is matched to clinical indication); or iterative reconstruction. COMPARISON: CT Abdomen/Pelvis Renal [id number] 10/11/2018 6:58 PM ; 08/15/2018. FINDINGS: Liver: Hepatomegaly. Liver otherwise unremarkable. Gallbladder and bile ducts: Status post cholecystectomy. No intra or extrahepatic biliary ectasia identified. Pancreas: Pancreas unremarkable. No visible pancreatic ductal ectasia. Spleen: Splenic calcified granulomas. Spleen otherwise unremarkable. Adrenals: Stable small bilateral adrenal adenomas since 10/11/2018 and 08/15/2018. No further follow-up recommended. Kidneys and ureters: No visible hydronephrosis, hydroureter, ureterolithiasis, nephrolithiasis, nephrocalcinosis, or bladder stone. Mild bilateral perinephric stranding which is a nonspecific finding. Renal arterial sclerosis. Stomach and bowel: Mild diverticulosis coli without evidence for diverticulitis. Nonobstructive bowel pattern. No visible adynamic or reactive ileus. Appendix: The appendix is surgically absent. Intraperitoneal space: No visible intraperitoneal ascites. Vasculature: Limited assessment lung bases reveals 3 vessel coronary artery disease. The abdominal aorta is nonaneurysmal with demonstrates advanced arterial sclerotic disease. Bilateral iliac stents. Lymph nodes: No visible active panniculitis/mesenteritis or findings of mesenteric lymphadenitis/lymphadenopathy. Bladder: Unremarkable as visualized. Reproductive: Mild prostate hypertrophy. Bones/joints: No visible active musculoskeletal pathology. Moderate degenerative disease of the thoracic spine. Soft tissues: Unremarkable. CT/CT kidney stone [id number] IMPRESSION: 1. No visible hydronephrosis, hydroureter, ureterolithiasis, nephrolithiasis, nephrocalcinosis, or bladder stone. 2. Stable bilateral small adrenal adenomas. 3. Mild diverticulosis coli without evidence for diverticulitis. 4. Extensive arterial sclerotic disease. 5. Three-vessel coronary artery disease. 6. Other non urgent/nonemergent, chronic, and age related findings discussed in text above. Radiation Dose CTDIVOL = (mGy): DLP = 1960.12 (mGy-cm)
[2019-08-07 17:22] LABS: Add Urine Culture? No; Bacteria Urine TRACE; Hyaline Casts Urine 0-4; Squamous Epithelial Cell Urine 0-4 (0-5); WBC Urine 0-4 /hpf (0-5)
--- NOTE | 2019-08-07 17:30 | PC.NURSE ---
Ultra sound already done. Waiting on results.
[2019-08-07] MEDS: HYDROcodone-acetaminophen 5-325 mg Tablet 1 TAB PO (18:26)
[2019-08-07 19:17] VITALS: BP 141/86; PULSE 82; RESP 16; O2SAT 98
== END 2019-08-07 19:19 | disposition home or self-care (01) ==
PROVIDERS: Emergency Provider Family Medicine; Family Provider Internal Medicine; PCP Internal Medicine
DX: R10.31 Right lower quadrant pain (principal)
CPT/HCPCS: 12345; 74176; 76870; 81001; 99282; 99283; A9270

== ENCOUNTER 2019-09-10 13:00 | Inpatient (IN) | payer MEDICARE, MEDICAID, SELFPAY ==
[2019-09-10] VITALS (9 sets, daily range): BP systolic 141–163; BP diastolic 75–97; PULSE 75–85; RESP 16–19; TEMP 36.4–36.7; O2SAT 92–97; BMI 37.4
--- NOTE | 2019-09-10 13:22 | XR_ITS ---
WS: [id number] CHEST XRAY TECHNIQUE: Portable chest. CLINICAL INFORMATION: cp COMPARISON: February 26, 2019 FINDINGS: Left Port-A-Cath with tip in SVC. Heart: Cardiomegaly. Sternotomy. Lungs: Mild chronic emphysematous changes. No acute pulmonary infiltrates. Bones: Normal visualized bony structures. XR/XR chest 1V portable [id number] IMPRESSION: No acute chest findings
--- NOTE | 2019-09-10 13:22 | ECG_ITS ---
Measurements Intervals Ethel Rate: 78 P: -4 PA: 180 QRS: -12 QRSD: 102 T: 7 QT: 366 QTc: 419 SINUS RHYTHM POSSIBLE ANTERIOR MYOCARDIAL INFARCTION , OF INDETERMINATE AGE [30 ms Q WAVE IN V3 V3/V4, OR R < 0.2 mV IN V4] Compared to ECG 07/09/2019 20:11:43 No significant changes Electronically Signed On 09-10-2019 18:12:09 CDT by Karen Choi M.D. [email or web address]
--- NOTE | 2019-09-10 13:29 | W.ED.CHESTPA ---
Documented by User: SURY Bullard 09/10/19 16:55 HPI - Chest Pain General: Chief Complaint: Chest Pain Stated Complaint: cp Time Seen by Provider: 09/10/19 13:23 Source: patient Mode of arrival: ambulatory Limitations: no limitations History of Present Illness: HPI narrative: Patient is a 49-year-old male with a history of CHF, DM, HTN, CKD, CAD with five cardiac stents, and dyslipidemia here for intermittent chest pains over the past 3-4 days. He states over the past 2 days pain has been worse with any form of exertion. It has been relieved with nitroglycerin. He became concerned today when pain began at rest. Patient states he sees Dr. Bowman for cardiology. Thinks he has had a stress and echo within the past year. He does complain of shortness of breath with exertion. He does tell me he has a history of bilateral DVTs and PEs. He states he was on Eliquis but after the 6-month time span was discontinued on this (stopped taking last month). Associated symptoms: Reports dyspnea; Deny abdominal pain, fever(s), nausea, palpitations, syncope or vomiting Review of Systems Const: Denies: fever or chills Eyes: Denies: change in vision or blurry vision Card: Reports: chest pain, swelling of feet/ankles and shortness of breath when lying down; Denies: palpitations, irregular heart rhythm, edema, lightheadedness, syncope, pre-syncope, shortness of breath on exertion, leg pain with exertion or bluish discoloration of hands/feet Resp: Reports: shortness of breath; Denies: productive cough, non-productive cough, pain on inspiration, change in phlegm color, coughing up blood or chest congestion GI: Denies: abdominal pain, nausea, vomiting, heartburn/indigestion or diarrhea : Denies: difficulty urinating or painful urination Musc: Denies: neck pain, back pain or joint pain Skin/Breast: Denies: rash Neuro: Denies: headache, numbness in extremities, weakness in extremities or changes in sensation PFS ED PFSH: Social History Smoking and tobacco status: never smoked Alcohol intake: former Former alcohol use details: Only holidays Lives independently: Yes Household members: significant other Marital status: Single Current occupational status: disabled History of recent travel: No Physical Exam Const: COMMON NORMALS: no apparent distress, oriented x3, no limitations and alert NUTRITIONAL APPEARANCE: obese HENMT: COMMON NORMALS: normocephalic and head/scalp atraumatic HEAD & SCALP: normocephalic and atraumatic Chest: COMMONS NORMALS: inspection of chest normal and palpation of chest normal Resp: COMMON NORMALS: normal respiratory effort and clear to auscultation bilaterally AUSCULTATION: clear to auscultation bilaterally Cardio: COMMON NORMALS: regular rate and regular rhythm RATE: regular rate RHYTHM: regular rhythm Extremity: COMMON NORMALS: no clubbing, cyanosis or edema, no calf tenderness and no pedal edema NARRATIVE EXTREMITY EXAM: bilateral lower extremity previous fasciotomy scars Neuro: COMMON NORMALS: oriented x3 SENSORIUM/ORIENTATION: Yes alert Skin: COMMON NORMALS: no rashes or lesions noted GENERAL SKIN EXAM: no rashes or lesions noted Course Vital Signs: Vital signs: Vital Signs Temperature 98.1 F 09/10/19 13:08 Pulse Rate 80 09/10/19 14:33 Respiratory Rate 16 09/10/19 14:33 Blood Pressure 160/87 09/10/19 14:33 Pulse Oximetry 94 09/10/19 14:33 MDM - Chest Pain MDM Narrative: Medical decision making narrative: Patient continues to have a 2 out of 10 pain. Patient's repeat troponin mildly elevated but had a negative delta. He has a heart score of 5. Patient was offered admission versus going home with outpatient follow-up and patient would like to come into the hospital. He states he is scared the pain will worsen if he were to go home. Spoke to Dr. Gauthier who will speak to the hospitalist. Lab Data: Labs: Lab Results 09/10/19 09/10/19 09/10/19 Range/Units 13:50 13:50 13:50 WBC 7.0 (4.0-10.0) 10^3/ uL RBC 4.62 (4.1-5.3) 10^6/u L Hgb 13.0 (11.7-16.6) g/dL Hct 41.8 L (42.0-52.0) % MCV 90.5 (80-94) fL MCH 28.1 (28.0-34.0) pg MCHC 31.1 (30.0-36.0) g/dL RDW 14.7 (12.1-15.1) % Plt Count 218 (130-400) 10^3/c mm MPV 9.3 (7.4-10.4) fL Neut % (Auto) 68.5 % Lymph % (Auto) 21.7 % [place] % (Auto) 6.4 % Eos % (Auto) 2.3 % Baso % (Auto) 0.7 % Neut # (Auto) 4.8 (1.8-7.7) 10^3/u L Lymph # (Auto) 1.5 (0.8-4.8) 10^3/u L [place] # (Auto) 0.5 (0.2-0.9) 10^3/u L Eos # (Auto) 0.2 (0.0-0.8) 10^3/u L Baso # (Auto) 0.1 (0.0-0.1) 10^3/u L Nucleated RBC % (a uto) 0 % Nucleated RBCs # 0.0 /100WBC Sodium 141 (136-145) mmol/L Potassium 3.7 (3.5-5.1) mmol/L Chloride 102 (98-107) mmol/L Carbon Dioxide 25 (22-29) mmol/L Anion Gap 17.7 (5-19) BUN 17 (6-20) mg/dL Creatinine 1.5 H (0.7-1.2) mg/dL GFR Calculation 49.3 L (90-130) mL/min Glucose 224 H (65-115) mg/dL Calculated Osmolal ity 295 (285-295) mOsm/k g Calcium 9.5 (8.5-10.5) mg/dL Total Bilirubin 1.1 (0.15-1.2) mg/dL AST 28 (0-40) U/L ALT 28 (0-41) U/L Alkaline Phosphata se 171 H (40-130) IU/L Troponin T Baselin e 36 H (0-15) ng/mL Troponin T 120 Min king salmon (0-15) ng/mL Delta Troponin T (0-10) ABS# NT-Pro-B Natriuret Pep 1039 H (0-125) pg/mL Total Protein 6.8 (6.6-8.7) g/dL Albumin 3.8 (3.5-5.2) g/dL Globulin 3.0 (1.3-4.6) g/dL Lipase 41 (13-60) U/L // Range/Units 15:50 WBC (4.0-10.0) 10^3/ uL RBC (4.1-5.3) 10^6/u L Hgb (11.7-16.6) g/dL Hct (42.0-52.0) % MCV (80-94) fL MCH (28.0-34.0) pg MCHC (30.0-36.0) g/dL RDW (12.1-15.1) % Plt Count (130-400) 10^3/c mm MPV (7.4-10.4) fL Neut % (Auto) % Lymph % (Auto) % [place] % (Auto) % Eos % (Auto) % Baso % (Auto) % Neut # (Auto) (1.8-7.7) 10^3/u L Lymph # (Auto) (0.8-4.8) 10^3/u L [place] # (Auto) (0.2-0.9) 10^3/u L Eos # (Auto) (0.0-0.8) 10^3/u L Baso # (Auto) (0.0-0.1) 10^3/u L Nucleated RBC % (a uto) % Nucleated RBCs # /100WBC Sodium (136-145) mmol/L Potassium (3.5-5.1) mmol/L Chloride (98-107) mmol/L Carbon Dioxide (22-29) mmol/L Anion Gap (5-19) BUN (6-20) mg/dL Creatinine (0.7-1.2) mg/dL GFR Calculation (90-130) mL/min Glucose (65-115) mg/dL Calculated Osmolal ity (285-295) mOsm/k g Calcium (8.5-10.5) mg/dL Total Bilirubin (0.15-1.2) mg/dL AST (0-40) U/L ALT (0-41) U/L Alkaline Phosphata se (40-130) IU/L Troponin T Baselin e (0-15) ng/mL Troponin T 120 Min king salmon 30.95 H (0-15) ng/mL Delta Troponin T -5.05 L (0-10) ABS# NT-Pro-B Natriuret Pep (0-125) pg/mL Total Protein (6.6-8.7) g/dL Albumin (3.5-5.2) g/dL Globulin (1.3-4.6) g/dL Lipase (13-60) U/L Imaging Data^: CXR: Radiologist's impression: [place] [id number] XRay Report Signed Patient: Rei Queen II Unit #: [id number] : 1970 Age/Sex: 49 / M ADM Date: 09/10/19 Loc: ER Room/Bed: Attending Dr: Ordering Provider/Ordering MD: Moses Gauthier MD Date of Service: 09/10/19 Procedure(s): XR chest 1V portable [id number] Accession Number(s): [id number] Report Number: [id number] WS: [id number] CHEST XRAY TECHNIQUE: Portable chest. CLINICAL INFORMATION: cp COMPARISON: February 26, 2019 FINDINGS: Left Port-A-Cath with tip in SVC. Heart: Cardiomegaly. Sternotomy. Lungs: Mild chronic emphysematous changes. No acute pulmonary infiltrates. Bones: Normal visualized bony structures. XR/XR chest 1V portable [id number] IMPRESSION: No acute chest findings Dictated By: Jose Franklin MD Signed By: Jose Franklin MD Signed Date/Time: 09/10/19 1335 DD/ 1333 CTA Chest: Radiologist's impression: [address] [address] [address] Scan Report Signed Patient: Rei Queen II Unit #: [id number] : 1970 Age/Sex: 49 / M ADM Date: 09/10/19 Loc: ER Room/Bed: Attending Dr: Ordering Provider/Ordering MD: Ellen Nath Date of Service: 09/10/19 Procedure(s): CT angio chest PE protcl [id number] Accession Number(s): [id number] Report Number: [id number] WS: [id number] CTA OF THE CHEST WITH PULMONARY EMBOLISM PROTOCOL TECHNIQUE: High-resolution contrast enhanced CTA of the chest with coronal and sagittal reformatted images with pulmonary embolism protocol. MIP images are also reviewed. CLINICAL INFORMATION: SOB, chest pain; previous PEs COMPARISON: None. DLP: 621.[address] scans at [facility] use at least one of these dose optimization techniques: automated exposure control; mA and/or kV adjustment per patient size (includes targeted exams where dose is matched to clinical indication); or iterative reconstruction. FINDINGS: Proximal main pulmonary arteries are normal. Normal segmental and subsegmental pulmonary arteries. No evidence for pulmonary embolus. Normal caliber thoracic aorta. Hypertrophic changes thoracic spine. No mediastinal or hilar lymphadenopathy. Coronary calcification. Prior sternotomy. Cardiomegaly. No axillary lymphadenopathy. Small bilateral adrenal adenomas are stable. Mild fatty atrophy of the pancreas. Small splenule. Bibasilar atelectasis. Calcified granulomas. No acute pulmonary infiltrates. CT/CT angio chest PE protcl [id number] IMPRESSION: 1. No evidence of pulmonary embolus. 2. No acute pulmonary infiltrates. Lungs are well aerated. 3. Sternotomy with cardiomegaly. 4. Stable small bilateral adrenal adenomas Dictated By: Jose Franklin MD Signed By: Jose Franklin MD Signed Date/Time: 09/10/191632 DD/ 1626 Discharge Plan Discharge Patient Disposition: Admitted As Inpatient Clinical Impression: Chest pain Qualifiers: Chest pain type: unspecified Qualified Code(s): R07.9 - Chest pain, unspecified Condition: Stable Referrals: Kp Montanez DO [Primary Care Provider] - Coding Level of Care Code ED Tobacco Buyer for Chg Fwd Exam Detailed Documented by User: Moses Gauthier MD 09/10/19 17:03 HPI - Chest Pain General: Chief Complaint: Chest Pain Stated Complaint: cp Time Seen by Provider: 09/10/19 13:23 PFS ED PFSH: Social History Smoking and tobacco status: never smoked Alcohol intake: former Former alcohol use details: Only holidays Lives independently: Yes Household members: significant other Marital status: Single Current occupational status: disabled History of recent travel: No Course Vital Signs: Vital signs: Vital Signs Temperature 98.1 F 09/10/19 13:08 Pulse Rate 80 09/10/19 14:33 Respiratory Rate 16 09/10/19 14:33 Blood Pressure 160/87 09/10/19 14:33 Pulse Oximetry 94 09/10/19 14:33 MDM - Chest Pain MDM Narrative: Medical decision making narrative: Patient presents here with chest pain. CT shows no signs of PE. I spoke to hospitalist Dr. batista and will admit for observation. Lab Data: Labs: Lab Results 09/10/19 09/10/19 09/10/19 Range/Units 13:50 13:50 13:50 WBC 7.0 (4.0-10.0) 10^3/ uL RBC 4.62 (4.1-5.3) 10^6/u L Hgb 13.0 (11.7-16.6) g/dL Hct 41.8 L (42.0-52.0) % MCV 90.5 (80-94) fL MCH 28.1 (28.0-34.0) pg MCHC 31.1 (30.0-36.0) g/dL RDW 14.7 (12.1-15.1) % Plt Count 218 (130-400) 10^3/c mm MPV 9.3 (7.4-10.4) fL Neut % (Auto) 68.5 % Lymph % (Auto) 21.7 % [place] % (Auto) 6.4 % Eos % (Auto) 2.3 % Baso % (Auto) 0.7 % Neut # (Auto) 4.8 (1.8-7.7) 10^3/u L Lymph # (Auto) 1.5 (0.8-4.8) 10^3/u L [place] # (Auto) 0.5 (0.2-0.9) 10^3/u L Eos # (Auto) 0.2 (0.0-0.8) 10^3/u L Baso # (Auto) 0.1 (0.0-0.1) 10^3/u L Nucleated RBC % (a uto) 0 % Nucleated RBCs # 0.0 /100WBC Sodium 141 (136-145) mmol/L Potassium 3.7 (3.5-5.1) mmol/L Chloride 102 (98-107) mmol/L Carbon Dioxide 25 (22-29) mmol/L Anion Gap 17.7 (5-19) BUN 17 (6-20) mg/dL Creatinine 1.5 H (0.7-1.2) mg/dL GFR Calculation 49.3 L (90-130) mL/min Glucose 224 H (65-115) mg/dL Calculated Osmolal ity 295 (285-295) mOsm/k g Calcium 9.5 (8.5-10.5) mg/dL Total Bilirubin 1.1 (0.15-1.2) mg/dL AST 28 (0-40) U/L ALT 28 (0-41) U/L Alkaline Phosphata se 171 H (40-130) IU/L Troponin T Baselin e 36 H (0-15) ng/mL Troponin T 120 Min king [place] (0-15) ng/mL Delta Troponin T (0-10) ABS# NT-Pro-B Natriuret Pep 1039 H (0-125) pg/mL Total Protein 6.8 (6.6-8.7) g/dL Albumin 3.8 (3.5-5.2) g/dL Globulin 3.0 (1.3-4.6) g/dL Lipase 41 (13-60) U/L 09/09/ Range/Units 15:50 WBC (4.0-10.0) 10^3/ uL RBC (4.1-5.3) 10^6/u L Hgb (11.7-16.6) g/dL Hct (42.0-52.0) % MCV (80-94) fL MCH (28.0-34.0) pg MCHC (30.0-36.0) g/dL RDW (12.1-15.1) % Plt Count (130-400) 10^3/c mm MPV (7.4-10.4) fL Neut % (Auto) % Lymph % (Auto) % [place] % (Auto) % Eos % (Auto) % Baso % (Auto) % Neut # (Auto) (1.8-7.7) 10^3/u L Lymph # (Auto) (0.8-4.8) 10^3/u L [place] # (Auto) (0.2-0.9) 10^3/u L Eos # (Auto) (0.0-0.8) 10^3/u L Baso # (Auto) (0.0-0.1) 10^3/u L Nucleated RBC % (a uto) % Nucleated RBCs # /100WBC Sodium (136-145) mmol/L Potassium (3.5-5.1) mmol/L Chloride (98-107) mmol/L Carbon Dioxide (22-29) mmol/L Anion Gap (5-19) BUN (6-20) mg/dL Creatinine (0.7-1.2) mg/dL GFR Calculation (90-130) mL/min Glucose (65-115) mg/dL Calculated Osmolal ity (285-295) mOsm/k g Calcium (8.5-10.5) mg/dL Total Bilirubin (0.15-1.2) mg/dL AST (0-40) U/L ALT (0-41) U/L Alkaline Phosphata se (40-130) IU/L Troponin T Baselin e (0-15) ng/mL Troponin T 120 Min king salmon 30.95 H (0-15) ng/mL Delta Troponin T -5.05 L (0-10) ABS# NT-Pro-B Natriuret Pep (0-125) pg/mL Total Protein (6.6-8.7) g/dL Albumin (3.5-5.2) g/dL Globulin (1.3-4.6) g/dL Lipase (13-60) U/L Discharge Plan Discharge Patient Disposition: Admitted As Inpatient Clinical Impression: Chest pain Qualifiers: Chest pain type: unspecified Qualified Code(s): R07.9 - Chest pain, unspecified Condition: Stable Referrals: pK Montanez DO [Primary Care Provider] - Coding Level of Care Code ED Tobacco Buyer for Chg Fwd Exam Detailed
[2019-09-10 13:58] LABS: Basophils # 0.1 10^3/uL (0.0-0.1); Basophils % 0.7 %; Eosinophils # 0.2 10^3/uL (0.0-0.8); Eosinophils % 2.3 %; Hematocrit 41.8 % (42.0-52.0); Lymphocytes # 1.5 10^3/uL (0.8-4.8); Lymphocytes % 21.7 %; Mean Corpuscular HGB Conc 31.1 g/dL (30.0-36.0); Mean Corpuscular Hemoglobin 28.1 pg (28.0-34.0); Mean Corpuscular Volume 90.5 fL (80-94); Mean Platelet Volume 9.3 fL (7.4-10.4); Monocytes # 0.5 10^3/uL (0.2-0.9); Monocytes % 6.4 %; Neutrophils # 4.8 10^3/uL (1.8-7.7); Neutrophils % 68.5 %; Nucleated Red Blood Cells % 0 %; Platelet Count 218 10^3/cmm (130-400); Red Blood Count 4.62 10^6/uL (4.1-5.3); Red Cell Distribution Width 14.7 % (12.1-15.1)
[2019-09-10 14:12] LABS: Slide Review Slide Review Perform
[2019-09-10] MEDS: morphine 4 mg/mL SDV 1 mL IVP (14:23)
[2019-09-10] MEDS: promethazine 25 mg/mL SDV 1 mL IM (14:24)
[2019-09-10 14:25] LABS: Troponin(5th) Baseline 36 ng/mL (0-15)
[2019-09-10 14:30] LABS: Alanine Aminotransferase 28 U/L (0-41); Albumin Level 3.8 g/dL (3.5-5.2); Alkaline Phosphatase 171 IU/L (40-130); Anion Gap 17.7 (5-19); Blood Urea Nitrogen 17 mg/dL (6-20); Calcium 9.5 mg/dL (8.5-10.5); Carbon Dioxide 25 mmol/L (22-29); Chloride 102 mmol/L (98-107); Glomerular Filtration Rate 49.3 mL/min (90-130); Glucose 224 mg/dL (65-115); Lipase 41 U/L (13-60); NT Pro B Type Natriuretic Pept 1039 pg/mL (0-125); Osmolality Calculated 295 mOsm/kg (285-295); Potassium 3.7 mmol/L (3.5-5.1); Sodium 141 mmol/L (136-145); Total Bilirubin 1.1 mg/dL (0.15-1.2); Total Protein 6.8 g/dL (6.6-8.7)
[2019-09-10 14:33] LABS: Aspartate Amino Transferase 28 U/L (0-40)
--- NOTE | 2019-09-10 14:33 | CT_ITS ---
WS: [id number] CTA OF THE CHEST WITH PULMONARY EMBOLISM PROTOCOL TECHNIQUE: High-resolution contrast enhanced CTA of the chest with coronal and sagittal reformatted i mages with pulmonary embolism protocol. MIP images are also reviewed. CLINICAL INFORMATION: SOB, chest pain; previous PEs COMPARISON: None. DLP: 621.[address] scans at [facility] use at least one of these dose optimization techniques: automat ed exposure control; mA and/or kV adjustment per patient size (includes targeted exams where dose is matched to clinical indication); or iterative reconstruction. FINDINGS: Proximal main pulmonary arteries are normal. Normal segmental and subsegmental pulmonary arteries. No evidence for pulmonary embolus. Normal caliber thoracic aorta. Hypertrophic changes thoracic spine. No mediastinal or hilar lymphaden opathy. Coronary calcification. Prior sternotomy. Cardiomegaly. No axillary lymphadenopathy. Small bilateral adrenal adenomas are stable. Mild fatty atrophy of the pancreas. Small splenule. Biba silar atelectasis. Calcified granulomas. No acute pulmonary infiltrates. CT/CT angio chest PE protcl [id number] IMPRESSION: 1. No evidence of pulmonary embolus. 2. No acute pulmonary infiltrates. Lungs are well aerated. 3. Sternotomy with cardiomegaly. 4. Stable small bilateral adrenal adenomas
--- NOTE | 2019-09-10 15:22 | ECG_ITS ---
Measurements Intervals [place] Rate: 72 P: -24 [place]: 175 QRS: -27 QRSD: 106 T: 0 QT: 381 QTc: 418 SINUS RHYTHM ANTERIOR MYOCARDIAL INFARCTION [40+ ms Q WAVE AND/OR ST/T ABNORMALITY IN V3/V4], OF INDETERMINATE AGE INFERIOR MYOCARDIAL INFARCTION [40+ ms Q WAVE AND/OR ST/T ABNORMALITY IN II/aVF], PROBABLY OLD Compared to ECG 07/09/2019 20:11:43 No significant changes Electronically Signed On 09-10-2019 18:15:05 CDT by Karen Choi M.D. [email or web address]
[2019-09-10] MEDS: diphenhydrAMINE 50 mg/mL SDV 1mL IVP (15:44)
[2019-09-10] MEDS: hydrocortisone 100 mg/2 mL SDV IVP (15:44)
[2019-09-10] MEDS: sodium chloride 0.9% 1,000 ML 500 ML IV (15:45)
[2019-09-10] MEDS: iodixanol 320 mg/mL 100mL Btl IV (16:09)
[2019-09-10 16:19] LABS: Troponin 5 2HR 30.95 ng/mL (0-15)
[2019-09-10 16:29] LABS: Troponin 5 2HR Delta -5.05 ABS# (0-10)
--- NOTE | 2019-09-10 17:49 | P.HP_ITS ---
Providers/Chief Complaint Admitting Physician: Nancy Watson MD Primary Care Provider: Kp Montanez DO Chief Complaint: CHEST PAIN History of Present Illness Rei Queen II is a 49 year old male with a past medical history of diabetes, hypertension, hyperlipidemia, CAD status post stents ?5, PE and DVT on eliquis until recently who presents to the emergency room for complaints of left-sided chest pain. Symptoms started on saturday (today is ), while climbing stairs to his [address] apt. Then resolved at rest and have intermittently been recurring even at rest. He takes daily lasix 40mg and has taken extra dose on one occassion this week due to inccreased lower extremity swelling. Last stress test 2017 revealed moderate area of severely decreased persistent tracer uptake in the anterior wall,jimbo septum, septum and apical inferior wall regions suggestive of myocardial scarring in the distribution of the mid to distal left anterior descending artery and possible distal right coronary artery. no significant coronary ischemia. LVEF 35% per stress. On last echo LVEF 55%, diffuse hypokinesia of inferior wall. No acute changes on EKG. Troponin with negative deltas. Reportedly had cardiac cath last in mid 2019 at [facility] which did not show any occlusion. Review of Systems General: Reports: 10 or more systems reviewed and unremarkable except in HPI and below Const: Denies: fever, chills or body aches Eyes: Denies: change in vision, blurry vision or photophobia ENMT: Reports: hoarseness; Denies: throat pain, enlarged tonsils, painful swallowing or nasal congestion Card: Reports: chest pain; Denies: palpitations, irregular heart rhythm, edema, swelling of feet/ankles, lightheadedness, pre-syncope, shortness of breath on exertion or shortness of breath when lying down Resp: Denies: shortness of breath, productive cough, non-productive cough, wheezing, stridor, pain on inspiration, change in phlegm color, coughing up blood or chest congestion GI: Denies: abdominal pain, nausea, vomiting, vomiting blood, coffee grounds in vomit, difficulty swallowing, heartburn/indigestion, diarrhea, constipation, cramping, change in stool character, blood in stool or black tarry stool : Denies: flank pain, painful urination, urinary frequency, urinary urgency, urinary hesitancy or blood in urine Musc: Denies: neck pain, back pain, extremity pain, joint swelling, joint warmth or deformity Neuro: Denies: headache, numbness in extremities, weakness in extremities, changes in sensation, difficulty walking, frequent falls, dizziness, vertigo, behavioral changes, slurred speech or seizure-like activity Psych: Denies: anxiety, depression, suicidal ideation or homicidal ideation Endo: Denies: excessive urination, excessive thirst, tired all the time, cold intolerance or hot flashes [place]/Lymph: Denies: easy bruising or easy bleeding Medications/Allergies Home Medications Medication Instructions Recorded Confirmed Last Taken Type amlodipine 5 mg tablet 5 mg PO DAILY tab 06/01/19 09/10/19 09/10/19 History aspirin 81 mg tablet,delayed 81 mg PO BID 06/01/19 09/10/19 09/10/19 History release atorvastatin 40 mg tablet 40 mg PO DAILY 06/01/19 09/10/19 09/10/19 History dulaglutide 0.75 mg/0.5 mL 0.75 mg SUBCUT Q7D 06/01/19 09/10/19 09/06/19 History subcutaneous pen injector furosemide 40 mg tablet 40 mg PO QAM 06/01/19 09/10/19 09/10/19 History glipizide 10 mg tablet 10 mg PO DAILY tab 06/01/19 09/10/19 09/10/19 History hydralazine 25 mg tablet 25 mg PO BID tab 06/01/19 09/10/19 09/10/19 History levothyroxine 88 mcg capsule 88 mcg PO DAILY 06/01/19 09/10/19 09/10/19 History metformin 500 mg tablet 500 mg PO BID 06/01/19 09/10/19 09/10/19 History methocarbamol 750 mg tablet 750 mg PO TID PRN 06/01/19 09/10/19 07/06/19 History metoprolol tartrate 50 mg tablet 50 mg PO BID 06/01/19 09/10/19 09/10/19 History multivitamin 1 tab PO QAM 06/01/19 09/10/19 09/10/19 History nitroglycerin 0.4 mg sublingual 0.4 mg SUBLINGUAL Q5M PRN 06/01/19 09/10/19 09/10/19 History tablet promethazine 25 mg tablet 25 mg PO Q6H PRN 06/01/19 09/10/19 07/06/19 History diabetic shoes #1 ea 06/09/19 09/10/19 07/06/19 Rx clopidogrel 75 mg tablet 75 mg PO DAILY #90 tab 08/14/19 09/10/19 09/10/19 Rx isosorbide mononitrate 30 mg PO BID 09/10/19 09/10/19 09/10/19 History Allergies Allergy/AdvReac Type Severity Reaction Status Date / Time Sulfa (Sulfonamide Allergy Severe ALGY-Difficulty Verified 07/28/19 10:06 Antibiotics) Breathing codeine Allergy ALGY-Anaphy Verified 07/28/19 10:06 laxis Iodinated Contrast Media Allergy ALGY-Difficulty Verified 07/28/19 10:06 Breathing iodine Allergy ALGY-Difficulty Verified 07/28/19 10:06 Breathing ketorolac Allergy ADR-Nausea Verified 07/28/19 10:06 metoclopramide [From Reglan] Allergy ALGY-Difficulty Verified 07/28/19 10:06 Breathing nalbuphine [From Nubain] Allergy ADR-Diarrhe Verified 07/28/19 10:06 a naproxen [From Naprosyn] Allergy ADR-Vomitin Verified 07/28/19 10:06 g ondansetron [From Zofran] Allergy ADR-Abdominal Verified 07/28/19 10:06 Pain prochlorperazine Allergy ADR-Irritab Verified 07/28/19 10:06 [From Compazine] le ranolazine [From Ranexa] Allergy ALGY-Difficulty Verified 07/28/19 10:06 Swallowing PFSH Acute PFSH: Medical History Anemia CAD (coronary artery disease) Cardiomyopathy CHF (congestive heart failure) Chronic anticoagulation CKD (chronic kidney disease) Compartment syndrome Depression Diabetes Foot drop, left H/O acute myocardial infarction H/O deep venous thrombosis Hyperlipidemia Hypertension Hypothyroidism Osteoarthritis of spine Port-A-Cath in place Subcutaneous mass of back Lipoma Surgical History H/O colonoscopy 08/2015 H/O esophagogastroduodenoscopy 08/2015 H/O removal of testicle left H/O skin graft H/O vasectomy History of appendectomy History of coronary artery stent placement 5x History of excision of mass 06/08/2019: Subcutaneous mass on back History of inguinal hernia repair, bilateral 2000 History of removal of Port-a-Cath Hx of cholecystectomy Family History Grandfather Cancer skin cancer Parkinson disease Brother Hypertension Father Heart disease Mother Hypertension Stroke Aneurysm Grandmother Aneurysm Other Crohn disease Denies family history of Anesthesia complication Bleeding disorder Social History Smoking and tobacco status: never smoked Alcohol intake: former Former alcohol use details: Only holidays Lives independently: Yes Household members: significant other Marital status: Single Current occupational status: disabled History of recent travel: No Vitals/I&O/Wt Last Vital Signs Temp 98.1 F 09/10/19 13:08 Pulse 75 09/10/19 17:32 Resp 16 09/10/19 17:32 BP 141/75 09/10/19 17:32 Pulse Ox 92 09/10/19 17:32 Weight last 48 hrs Weight 105.233 kg Physical Exam Narrative: EXAM NARRATIVE: GEN: Awake, alert and oriented, no acute distress CVS: S1S2 N RS: CTA B/L Abd: Soft, nt/nd , bs+ 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 ext: 1+ LE pitting edema Data : 09/10/19 13:50 09/10/19 13:50 A&P Assessment and plan (1) Chest pain: Status: Acute Qualifiers: Chest pain type: unspecified Qualified Code(s): R07.9 - Chest pain, unspecified (2) Diabetes: Status: Acute (3) Ischemic cardiomyopathy: Status: Acute (4) Systolic CHF: Status: Acute Additional A&P Information Admit to CSU level care # Chest pain with a h/o significant risk factors and past h/o CAD ; Currently without acute St-T changes and troponin without significant delta symptoms appear c/w angina Schedule cardiac stress test for morning Continue ASA, Plavix, Imdur , hydralazine, statin , metoprolol CTA negative for PE # HTN: Currently controlled # DM : Insulin sliding scale Full code DVT ppx: lovenox Attestations Medical Necessity Statement*: chest pain, angina evaluation Coding Level of Care Code Acute Rn Team Leader for Chg Fwd Diagnoses Chest pain R07.9 Chest pain type: unspecified Diabetes E11.9 Ischemic cardiomyopathy I25.5 Systolic CHF I50.20
[2019-09-10 20:12] LABS: Estmated Average Glucose 171; Hemoglobin A1C 7.6 % (4.0-6.0)
[2019-09-10] MEDS: nitroglycerin 1 gm/inch oint Pkt 0.5 INCH TOPICAL (20:24)
[2019-09-10] MEDS: morphine 4 mg/mL SDV 1 mL 2 MG IVP (20:26)
[2019-09-10 20:33] LABS: NT Pro B Type Natriuretic Pept 1068 pg/mL (0-125)
[2019-09-11] VITALS (12 sets, daily range): BP systolic 98–158; BP diastolic 64–99; PULSE 68–90; RESP 14–20; TEMP 36.5–36.7; O2SAT 91–98
[2019-09-11] MEDS: nitroglycerin 1 gm/inch oint Pkt 0.5 INCH TOPICAL ×3 (02:06→15:08)
[2019-09-11] MEDS: morphine 4 mg/mL SDV 1 mL 2 MG IVP ×2 (02:08→17:25)
[2019-09-11] MEDS: FUROsemide 40 mg Tablet PO (05:27)
--- NOTE | 2019-09-11 06:00 | ECG_ITS ---
NAME OF STUDY: LEXISCAN SESTAMIBI STRESS TEST INDICATION: Chest Pain, PROCEDURE: At the baseline, the EKG revealed normal sinus rhythm with a poor R wave progression. Features of old anteroseptal [place]. Diffuse nonspecific ST-T changes. The baseline blood pressure was 155/87 mm Hg with a heart rate of 71 beats/min. Lexiscan was infused over a period of 20 seconds. A total of 0.4 milligrams of Lexiscan was infused. The stress phase was continued for a total of 5 minutes. Heart rate at the end of the stress phase was 84 with a blood pressure 157/68. The EKG at the peak infusion revealed no significant changes. Sestamibi was injected 20 seconds after the Lexiscan infusion. Blood pressure at the end of the recovery phase was 150/70 with a heart rate of 82 per minute. CONCLUSION: 1. No significant EKG changes with the LexiScan infusion 2. No LexiScan induced chest pain or cardiac arrhythmia 3. Normal blood pressure and heart rate response 4. Sestamibi/sestamibi perfusion scan pending; see separate report. Electronically Signed On 09-11-2019 13:36:52 CDT by Karen Choi M.D. [id number]
--- NOTE | 2019-09-11 06:13 | NMCV_ITS ---
NM michelle perf SPECT r/s* [id number] Rei Queen Age: 49 Gender: M : 1970 Exam Date: 09/11/2019 06:13 Ordering Phys: Nancy Watson MD Technologist: BALDEMAR Hutchison Exam Location: [facility] Indications: CHEST PAIN STRESS TEST [facility] IMAGE PROTOCOL Rest/Stress 1 Lexiscan Day Radiopharmaceutical Dose (mCi) Administration Site Administered by Rest: Tc-99m 10.9 IV BALDEMAR Johnston Sestamibi Stress:Tc-99m 32.9 IV BALDEMAR Johnston Sestamibi Rest: 11-Sep-2019 60 Discovery 630 Stress: 11-Sep-2019 30 Discovery 630 0.4mg Lexiscan. Images obtained in supine and prone position. SPECT RESULTS Technical Quality: Excellent Raw Data Analysis: Normal Image Corrections: No attenuation or motion correction applied Summed Stress Score: 19 Summed Rest Score: 20 Summed Difference Score: 1 PERFUSION FINDINGS Moderate to severely decreased tracer uptake in the mid and apical anterior, mid and apical inferior, apical lateral, apical septal and LV apex with a subtle area of reversibility in the mid inferior wall region FUNCTIONAL RESULTS (calculated via Gated SPECT) Stress Image LV EF (%): 34 Stress EDV (mL):197 TID: 1.01 Stress ESV (mL):131 FUNCTIONAL FINDINGS: Moderate diffuse hypokinesia of the septum, inferior wall and the LV apex IMPRESSIONS 1. Features suggestive of myocardial scarring in the distribution of all the 3 coronary arteries with a subtle area of ischemia in the distribution of the right coronary artery at the mid inferior wall region. 2. Diminished LV ejection fraction of 34%. 3. Multiple wall motion normalities as mentioned above. 4. Moderately dilated LV cavity with an end-systolic volume of 131 mL. No similar previous studies are available for comparison Dr Karen Choi MD [facility] (Electronically Signed) Final Date: 11 September 2019 14:03 S
[2019-09-11 06:18] LABS: Basophils # 0.1 10^3/uL (0.0-0.1); Basophils % 0.7 %; Eosinophils # 0.1 10^3/uL (0.0-0.8); Eosinophils % 0.9 %; Hematocrit 33.1 % (42.0-52.0); Hemoglobin 10.7 g/dL (11.7-16.6); Lymphocytes # 1.8 10^3/uL (0.8-4.8); Lymphocytes % 21.2 %; Mean Corpuscular HGB Conc 32.3 g/dL (30.0-36.0); Mean Corpuscular Hemoglobin 28.5 pg (28.0-34.0); Mean Platelet Volume 9.5 fL (7.4-10.4); Monocytes # 0.7 10^3/uL (0.2-0.9); Monocytes % 7.9 %; Neutrophils # 5.8 10^3/uL (1.8-7.7); Neutrophils % 68.9 %; Nucleated Red Blood Cells % 0 %; Platelet Count 283 10^3/cmm (130-400); Red Blood Count 3.76 10^6/uL (4.1-5.3); Red Cell Distribution Width 14.8 % (12.1-15.1); White Blood Count 8.5 10^3/uL (4.0-10.0)
[2019-09-11 06:32] LABS: Blood Urea Nitrogen 19 mg/dL (6-20); Calcium 8.9 mg/dL (8.5-10.5); Carbon Dioxide 31 mmol/L (22-29); Chloride 103 mmol/L (98-107); Glomerular Filtration Rate 49.3 mL/min (90-130); Glucose 152 mg/dL (65-115); Osmolality Calculated 293 mOsm/kg (285-295); Sodium 142 mmol/L (136-145)
[2019-09-11] MEDS: nitroglycerin 0.4 mg sublingual Tablet SUBLINGUAL ×3 (07:41→07:49)
--- NOTE | 2019-09-11 08:00 | PC.NURSE ---
@0740 patient c/o chest pain rated 5 BP 157/94 HR 71 Ntg sl x1 given. @ 0745 BP [id number] HR 70 pain unchanged. Ntg sl x 1 given. @ 0750 BP 123/73 HR 77 pain unchanged at 07/27, @ 0800 BP 138/76 HR 78 pain at 10 Morphine sulfate 2mg given IVP.
--- NOTE | 2019-09-11 09:30 | PC.NURSE ---
Patient off unit to [facility] for stress test.
[2019-09-11] MEDS: regadenoson 0.4 Mg/5 ml Syringe IVP (10:06)
--- NOTE | 2019-09-11 10:58 | PC.CHAP ---
Pastoral Care Encounter/Spiritual Assessment Type of Contact [] Declined grounds and nursery specialist visit [] Patient/Family/Request visit [] Outpatient visit [] Follow-up visit [] Physician referral [] Code/Alert [x] Routine visit [] Staff referral [] Actively dying [] Patient sleeping [] Family support [] [] Out of room [] Palliative care [] [] Receiving care in room [] Pre-surgical visit [] Trauma [] Long length of stay [] ICU visit [] Other: Relational/Emotional Strength [] Patient feels connected with others/family/visitors/staff [] Distress [] Loneliness/isolation [] Abandonment Spirituality of Patient [] Person of [place] [] Attends [employer] of their [place] [x] Believes in Prayer [] Reads Bible or Protestant materials [] There are Spiritual issues to be addressed 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 [x Prayer [] Active listening [] Non-anxious presence [] Spiritual/emotional support [] Crisis/trauma care [] Spiritual counseling [] Bereavement support [] Provided bereavement packet [] Provided Bible/devotional materials [] Provided toy/stuffed animal, coloring book to patient or family member [] Provided Communion [] Anointing/[place] [] Salvation [x] Completed spiritual assessment [] Other: Impact on Illness or Injury [] Angry [] Fearful [] Anxious [] Often cries [] Exhaustion [] Unable to work [] Unable to attend pentecostal [] Unable to walk/stand [] Unable to read [] Unable to drive [] Unable to eat/drink [] Unable to sleep [] Unable to be with family [] Patient intubated [] Other: Summary Patient resting- turned off room light. Needed to sleep Time spent with patient 10 min
[2019-09-11] MEDS: clopidogrel 75 mg Tablet PO (12:30)
[2019-09-11] MEDS: isosorbide mononitrate ER 30 mg Tablet PO ×2 (12:30→17:28)
[2019-09-11 15:24] LABS: Glucose Point of Care 295 mg/dL (70-110)
--- NOTE | 2019-09-11 16:28 | PM.PN ---
Subjective Subjective: Interval history: c/o intermittent dyspnea on exertion today. Denies any current chest pain. Overnight he was placed on 2lpm NC due to subjective SOB. Stress test today unchanged over last one in 2017. 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: no focal neuro deficits EXT: 1+ lower extremity pitting edema Data : 09/11/19 05:40 09/11/19 05:40 A&P Assessment and plan (1) Chest pain: Status: Acute Qualifiers: Chest pain type: unspecified Qualified Code(s): R07.9 - Chest pain, unspecified (2) Diabetes: Status: Acute (3) Ischemic cardiomyopathy: Status: Acute (4) Systolic CHF: Status: Acute Additional A&P Information # Chest pain with a h/o significant risk factors and past h/o CAD ; At present time, patient states that chief complaint has been shortness of breath, subjectively feels worse today, objectively no episodes of desaturation, however wishes to keep 02 on Currently without acute St-T changes and troponin without significant delta symptoms appear c/w angina Cardiac stress test appears unchanged over previous one in 2017 Continue ASA, Plavix , hydralazine, statin , metoprolol Increase Imdur from 60mg qd to 90mg qd CTA negative for PE # Ischemic cardiomyopathy # CHF: Increased rales today, increase Lasix to 40mg iv q12h today, closely monitor urine output # HTN: Currently controlled # DM : Insulin sliding scale Full code DVT ppx: lovenox Attestations Medical Necessity Statement*: Increased rales on exam, needs further diuresis, subjectively continues to have symptom s Coding Level of Care Code Acute Vp Project for Chg Fwd Diagnoses Chest pain R07.9 Chest pain type: unspecified Diabetes E11.9 Ischemic cardiomyopathy I25.5 Systolic CHF I50.20
[2019-09-11 16:55] LABS: Glucose Point of Care 293 mg/dL (70-110)
[2019-09-11] MEDS: metoprolol tartrate 50 mg Tablet PO (17:27)
[2019-09-11] MEDS: aspirin 81 mg EC Tablet PO (17:28)
[2019-09-11] MEDS: hyDRALAzine 25 mg Tablet PO (17:28)
[2019-09-11] MEDS: FUROsemide 10 mg/mL SDV 4mL 40 MG IVP (17:28)
[2019-09-11 21:09] LABS: Glucose Point of Care 215 mg/dL (70-110)
[2019-09-11] MEDS: ALPRAZolam 0.25 mg Tablet PO ×2 (22:04)
--- NOTE | 2019-09-11 23:59 | ECG_ITS ---
Measurements Intervals [place] Rate: 65 P: 13 [place]: 204 QRS: 4 QRSD: 102 T: 30 QT: 416 QTc: 435 SINUS RHYTHM POSSIBLE ANTERIOR MYOCARDIAL INFARCTION [30 ms Q WAVE IN V3/V4, OR R < 0.2 mV IN V4], OF INDETERMINATE AGE Compared to ECG 09/10/2019 16:32:19 No significant changes Electronically Signed On 09-12-2019 14:59:30 CDT by Karen Choi M.D. [id number]
[2019-09-12] VITALS (12 sets, daily range): BP systolic 112–136; BP diastolic 68–79; PULSE 71–76; RESP 17–20; TEMP 36.4–37; O2SAT 90–96
[2019-09-12] MEDS: morphine 4 mg/mL SDV 1 mL 2 MG IVP ×4 (00:11→22:33)
[2019-09-12] MEDS: promethazine 25 mg Tablet PO (00:35)
[2019-09-12 00:59] LABS: Troponin(5th) Baseline 36 ng/mL (0-15)
--- NOTE | 2019-09-12 01:59 | ECG_ITS ---
Measurements Intervals [place] Rate: 66 P: 6 [place]: 201 QRS: 1 QRSD: 100 T: 28 QT: 417 QTc: 439 SINUS RHYTHM POSSIBLE ANTERIOR MYOCARDIAL INFARCTION [30 ms Q WAVE IN V3/V4, OR R < 0.2 mV IN V4], OF INDETERMINATE AGE MODERATE T-WAVE ABNORMALITY, CONSIDER LATERAL ISCHEMIA [-0.1+ mV T WAVE IN I/aVL/V5/V6] Compared to ECG 09/10/2019 16:32:19 T-wave abnormality now present Possible ischemia now present Myocardial infarct finding still present Electronically Signed On 09-12-2019 15:04:03 CDT by Karen Choi M.D. [id number]
[2019-09-12] MEDS: FUROsemide 10 mg/mL SDV 4mL 40 MG IVP ×2 (05:37→18:15)
[2019-09-12] MEDS: isosorbide mononitrate ER 60 mg Tablet PO ×2 (05:38→18:09)
--- NOTE | 2019-09-12 05:59 | ECG_ITS ---
Measurements Intervals [place] Rate: 65 P: 4 [place]: 200 QRS: -2 QRSD: 102 T: 28 QT: 415 QTc: 434 SINUS RHYTHM POSSIBLE ANTERIOR MYOCARDIAL INFARCTION [30 ms Q WAVE IN V3/V4, OR R < 0.2 mV IN V4], OF INDETERMINATE AGE Compared to ECG 09/10/2019 16:32:19 No significant changes Electronically Signed On 09-12-2019 15:02:39 CDT by Karen Choi M.D. [id number]
[2019-09-12 06:19] LABS: Glucose Point of Care 115 mg/dL (70-110)
[2019-09-12 06:23] LABS: Basophils # 0.1 10^3/uL (0.0-0.1); Eosinophils # 0.2 10^3/uL (0.0-0.8); Eosinophils % 2.9 %; Hematocrit 33.2 % (42.0-52.0); Hemoglobin 10.7 g/dL (11.7-16.6); Lymphocytes # 2.1 10^3/uL (0.8-4.8); Lymphocytes % 27.3 %; Mean Corpuscular HGB Conc 32.2 g/dL (30.0-36.0); Mean Corpuscular Hemoglobin 28.5 pg (28.0-34.0); Mean Corpuscular Volume 88.3 fL (80-94); Mean Platelet Volume 9.6 fL (7.4-10.4); Monocytes # 0.6 10^3/uL (0.2-0.9); Monocytes % 8.2 %; Neutrophils # 4.8 10^3/uL (1.8-7.7); Neutrophils % 60.5 %; Nucleated Red Blood Cells % 0 %; Platelet Count 274 10^3/cmm (130-400); Red Blood Count 3.76 10^6/uL (4.1-5.3); White Blood Count 7.9 10^3/uL (4.0-10.0)
[2019-09-12 06:42] LABS: Anion Gap 12.7 (5-19); Blood Urea Nitrogen 25 mg/dL (6-20); Calcium 8.8 mg/dL (8.5-10.5); Carbon Dioxide 30 mmol/L (22-29); Chloride 103 mmol/L (98-107); Glucose 124 mg/dL (65-115); Osmolality Calculated 292 mOsm/kg (285-295); Potassium 3.7 mmol/L (3.5-5.1); Sodium 142 mmol/L (136-145)
[2019-09-12 06:44] LABS: Troponin 5 6HR 36.16 ng/mL (0-15); Troponin 5 6HR Delta 0.16 ng/L (0-12)
--- NOTE | 2019-09-12 07:45 | PC.NURSE ---
Initial Rounding- Pt is asleep in bed at this time. 2 L NC noted.
[2019-09-12] MEDS: atorvastatin 40 mg Tablet PO (09:39)
[2019-09-12] MEDS: levothyroxine 88 mcg Tablet PO (09:40)
[2019-09-12] MEDS: metoprolol tartrate 50 mg Tablet PO ×2 (09:40→18:10)
[2019-09-12] MEDS: amlodipine 5 mg Tablet PO (09:40)
[2019-09-12] MEDS: hyDRALAzine 25 mg Tablet PO ×2 (09:40→18:09)
[2019-09-12] MEDS: clopidogrel 75 mg Tablet PO (09:40)
[2019-09-12] MEDS: aspirin 81 mg EC Tablet PO ×2 (09:40→18:09)
[2019-09-12 10:46] LABS: Glucose Point of Care 198 mg/dL (70-110)
--- NOTE | 2019-09-12 11:21 | P.PN_ITS ---
Subjective Subjective: Interval history: c/o chest pain overnight. troponin and Ekg series withotu changes. cardiology consult requested for ongoing chest pain. . Medications: Reviewed: Yes Vitals/I&O/Wt Last Vital Signs Temp 98.6 F 09/12/19 11:14 Pulse 76 09/12/19 11:14 Resp 18 09/12/19 11:14 BP 117/73 09/12/19 11:14 Pulse Ox 94 09/12/19 11:14 09/11/19 09/12/19 09/12/19 22:59 06:59 14:59 Intake Total 222 / 222 Output Total 400 / 2350 1000 / 1000 Balance -400 / -2110 -778 / -778 Weight last 48 hrs Weight 105.233 kg Physical Exam Narrative: EXAM NARRATIVE: GEN: Awake, alert and oriented, no acute distress CVS: S1S2 N RS: B/L clear Abd: Soft, nt/nd , bs+ COOK TACO: no focal neuro deficits EXT: no edema today Data : 09/12/19 06:13 09/12/19 06:13 A&P Assessment and plan (1) Chest pain: Status: Acute Qualifiers: Chest pain type: unspecified Qualified Code(s): R07.9 - Chest pain, unspecified (2) Diabetes: Status: Acute Qualifiers: Diabetes mellitus type: type 2 Diabetes mellitus long term care phlebotomist insulin use: without senior care use Diabetes mellitus complication status: with hyperglycemia Qualified Code(s): E11.65 - Type 2 diabetes mellitus with hyperglycemia (3) Ischemic cardiomyopathy: Status: Acute (4) Systolic CHF: Status: Acute Additional A&P Information # Chest pain with a h/o significant risk factors and past h/o CAD ; cardiology consult Continue ASA, Plavix , hydralazine, statin , metoprolol Increase Imdur from 60mg qd to 90mg qd---> increase to 120mg /day CTA negative for PE # Ischemic cardiomyopathy # CHF: euvolemic today. Continue same dose of lasix # HTN: Currently controlled # DM : Insulin sliding scale Full code DVT ppx: lovenox Attestations Medical Necessity Statement*: ongoing chest pain, cardiology evaluation Coding Level of Care Code Acute Television Tube Inspector for Chg Fwd Diagnoses Chest pain R07.9 Chest pain type: unspecified Diabetes E11.65 Diabetes mellitus type: type 2 Diabetes mellitus long term care phlebotomist insulin use: without senior care use Diabetes mellitus complication status: with hyperglycemia Ischemic cardiomyopathy I25.5 Systolic CHF I50.20
--- NOTE | 2019-09-12 13:31 | P.CONIM_ITS ---
Providers/Reason For Consult Consulting Physican/Specialty*: LAYLA Choi MD/cardiology Reason for Consult*: Chest pain, shortness of breath, CHF, cardiomyopathy Attending Physician: Nancy Watson MD Primary Care Provider: Kp Montanez DO History of Present Illness History of Present Illness Rei Queen II is a 49 year old male with a history of coronary disease, multiple PCI's, multiple cardiac catheterization, cardiomyopathy, heart failure and chronic chest pain, is admitted to hospital with increasing episodes of chest pain. This patient has a chronic chest pains syndrome. He had a multiple coronary angiograms in the recent years, at least twice a year in various different hospitals. According the patient, he has been having some episodes of chest pains ever since 2012. He had multiple hospital admissions for this chest pains. At least he had a half a dozen coronary angiogram since 2014. All of them showed patent stented segments with no new revascularizable lesions. It was opted to treat him medically in those times. He was tried on Ranexa for a while but because of some allergic reactions, it had to be taken off. According to him, for the last 2 days he at least 4 episodes of chest pain, each time lasting for 10 to 15 minutes. He takes 1-3 sublingual nitro. According to him, the pain this time was more frequent . He had associated shortness of breath. Usually these pains are precipitated with activities. He usually climbs stairs for exercise. He was experiencing more frequent pains for the last couple of days and for that reason he decided to come to the hospital. Currently at the time of my examination, patient is having no chest pain. He has a baseline shortness of breath with activities. He has a history of atherosclerotic heart disease and had a multiple PCI's. The first PCI was approximately 16 years ago at the [facility] in [facility] . He had an angiogram followed by PCI in 2005 at a hospital in [place]. Since September 2014, he had of at least half a dozen cardiac catheterization. The most recent one was in 2018. The results are as follows. # LHC (01/26/2019): Widely patent stent in mid LAD, ramus intermedius, RCA, OM1. Mild instent restenosis in RCA. Anteroapical akinesis. LVEF=45%. Patient continues to have chest pain and shortness of breath. ? # TTE (01/2019): Mild LVH, LVEF=40-45%. Apical and distal hypokinesis. Grade 1 DD. In 2009, he had deep vein thrombosis of both lower extremities after prolonged bus ride?. In 2011, he was admitted to [facility] in [place] with the cardiac tamponade. Apparently while attempting the pericardial tap, he went into cardiac arrest. For this reason, he had open pericardiotomy?. He also had a spontaneous bleeding in the lower extremities, developing compartment syndrome and for which had to undergo below-knee fasciotomy bilaterally. Subsequently he was in a long-term for almost a year and a half. The details of this also is not known Review of Systems Narrative: CONSTITUTIONAL: No fever or chills. EYES: No blurring of vision or other visual disturbances lately. ENT: No hoarseness of voice, auditory disturbances or sore throat. CARDIOVASCULAR: As mentioned above RESPIRATORY: Shortness of breath with activities GASTROINTESTINAL: No hematemesis or melena. GENITOURINARY: No dysuria or hematuria. INTEGUMENTARY: No skin rashes or history of skin cancer. NEURO: No transient ischemic attacks or amaurosis. PSYCHIATRIC: No history of psychosis or major depression. HEMATOLOGIC: DVT and pulmonary embolism. Spontaneous bleeding in the lower extremities developing compartment syndrome? ENDOCRINE: No history of polyuria or polydipsia. MUSCULOSKELETAL: No recent joint pain or swelling. ALLERGY/IMMUNOLOGY: As mentioned above. Meds/Allergies Home Medications and Allergies Home Medications Medication Instructions Recorded Confirmed Last Taken Type amlodipine 5 mg tablet 5 mg PO DAILY tab 06/01/19 09/10/19 09/10/19 History aspirin 81 mg tablet,delayed 81 mg PO BID 06/01/19 09/10/19 09/10/19 History release atorvastatin 40 mg tablet 40 mg PO DAILY 06/01/19 09/10/19 09/10/19 History dulaglutide 0.75 mg/0.5 mL 0.75 mg SUBCUT Q7D 06/01/19 09/10/19 09/06/19 History subcutaneous pen injector furosemide 40 mg tablet 40 mg PO QAM 06/01/19 09/10/19 09/10/19 History glipizide 10 mg tablet 10 mg PO DAILY tab 06/01/19 09/10/19 09/10/19 History hydralazine 25 mg tablet 25 mg PO BID tab 06/01/19 09/10/19 09/10/19 History levothyroxine 88 mcg capsule 88 mcg PO DAILY 06/01/19 09/10/19 09/10/19 History metformin 500 mg tablet 500 mg PO BID 06/01/19 09/10/19 09/10/19 History methocarbamol 750 mg tablet 750 mg PO TID PRN 06/01/19 09/10/19 07/06/19 History metoprolol tartrate 50 mg tablet 50 mg PO BID 06/01/19 09/10/19 09/10/19 History multivitamin 1 tab PO QAM 06/01/19 09/10/19 09/10/19 History nitroglycerin 0.4 mg sublingual 0.4 mg SUBLINGUAL Q5M PRN 06/01/19 09/10/19 09/10/19 History tablet promethazine 25 mg tablet 25 mg PO Q6H PRN 06/01/19 09/10/19 07/06/19 History diabetic shoes #1 ea 06/09/19 09/10/19 07/06/19 Rx clopidogrel 75 mg tablet 75 mg PO DAILY #90 tab 08/14/19 09/10/19 09/10/19 Rx isosorbide mononitrate 30 mg PO BID 09/10/19 09/10/19 09/10/19 History Allergies Allergy/AdvReac Type Severity Reaction Status Date / Time Sulfa (Sulfonamide Allergy Severe ALGY-Difficulty Verified 07/28/19 10:06 Antibiotics) Breathing codeine Allergy ALGY-Anaphy Verified 07/28/19 10:06 laxis Iodinated Contrast Media Allergy ALGY-Difficulty Verified 07/28/19 10:06 Breathing iodine Allergy ALGY-Difficulty Verified 07/28/19 10:06 Breathing ketorolac Allergy ADR-Nausea Verified 07/28/19 10:06 metoclopramide [From Reglan] Allergy ALGY-Difficulty Verified 07/28/19 10:06 Breathing nalbuphine [From Nubain] Allergy ADR-Diarrhe Verified 07/28/19 10:06 a naproxen [From Naprosyn] Allergy ADR-Vomitin Verified 07/28/19 10:06 g ondansetron [From Zofran] Allergy ADR-Abdominal Verified 07/28/19 10:06 Pain prochlorperazine Allergy ADR-Irritab Verified 07/28/19 10:06 [From Compazine] le ranolazine [From Ranexa] Allergy ALGY-Difficulty Verified 07/28/19 10:06 Swallowing Current Medications Current Medications Generic Name Dose Route Start Last Admin Trade Name Freq PRN Reason Stop Dose Admin Alprazolam 0.25 mg 09/10/19 23:49 09/11/19 22:04 Xanax PO 0.25 mg BEDTIME RANDY Administration Amlodipine Besylate 5 mg 09/11/19 09:00 09/12/19 09:40 Norvasc PO 5 mg DAILY RANDY Administration Aspirin 81 mg 09/11/19 09:00 09/12/19 09:40 Aspirin Ec PO 81 mg BID RANDY Administration Atorvastatin Calcium 40 mg 09/11/19 09:00 09/12/19 09:39 Lipitor PO 40 mg DAILY RANDY Administration Clopidogrel Bisulfate 75 mg 09/11/19 09:00 09/12/19 09:40 Plavix PO 75 mg DAILY RANDY Administration Furosemide 40 mg 09/11/19 16:00 09/12/19 05:37 Lasix IVP 40 mg Q12H RANDY Administration Hydralazine HCl 25 mg 09/11/19 09:00 09/12/19 09:40 Apresoline PO 25 mg BID RANDY Administration Insulin Aspart 0 unit 09/11/19 18:00 09/12/19 12:18 Novolog SUBCUT 8 unit WM&BEDTIME RANDY Administration Protocol Isosorbide Mononitrate 60 mg 09/12/19 06:00 09/12/19 05:38 Imdur PO 60 mg QAM RANDY Administration Isosorbide Mononitrate 30 mg 09/11/19 18:00 09/11/19 17:28 Imdur PO 30 mg QPM RANDY Administration Levothyroxine Sodium 88 mcg 09/11/19 09:00 09/12/19 09:40 Synthroid PO 88 mcg DAILY RANDY Administration Metoprolol Tartrate 50 mg 09/11/19 09:00 09/12/19 09:40 Lopressor PO 50 mg BID RANDY Administration Morphine Sulfate 2 mg 09/10/19 18:37 09/12/19 09:44 Morphine IVP 2 mg Q6H PRN Administration SEVERE PAIN Promethazine HCl 25 mg 09/10/19 19:51 09/12/19 00:35 Phenergan PO 25 mg Q6H PRN Administration Nausea And Vomiting PFSH Acute PFSH: Medical History Anemia CAD (coronary artery disease) Cardiomyopathy CHF (congestive heart failure) Chronic anticoagulation CKD (chronic kidney disease) Compartment syndrome Depression Diabetes Foot drop, left H/O acute myocardial infarction H/O deep venous thrombosis Hyperlipidemia Hypertension Hypothyroidism Osteoarthritis of spine Port-A-Cath in place Subcutaneous mass of back Lipoma Systolic CHF Surgical History H/O colonoscopy 08/2015 H/O esophagogastroduodenoscopy 08/2015 H/O removal of testicle left H/O skin graft H/O vasectomy History of appendectomy History of coronary artery stent placement 5x History of excision of mass 06/08/2019: Subcutaneous mass on back History of inguinal hernia repair, bilateral 2000 History of removal of Port-a-Cath Hx of cholecystectomy Family History Grandfather Cancer skin cancer Parkinson disease Brother Hypertension Father Heart disease Mother Hypertension Stroke Aneurysm Grandmother Aneurysm Other Crohn disease Denies family history of Anesthesia complication Bleeding disorder Social History Smoking and tobacco status: never smoked Alcohol intake: former Former alcohol use details: Only holidays Lives independently: Yes Household members: significant other Marital status: Single Current occupational status: disabled History of recent travel: No Vitals/I&O/Wt Last Vital Signs Temp 98.6 F 09/12/19 11:14 Pulse 76 09/12/19 11:14 Resp 18 09/12/19 11:14 BP 117/73 09/12/19 11:14 Pulse Ox 91 09/12/19 12:11 09/11/19 09/12/19 09/12/19 22:59 06:59 14:59 Intake Total 444 / 444 Output Total 400 / 2350 1400 / 1400 Balance -400 / -2110 -956 / -956 Physical Exam Narrative: EXAM NARRATIVE: GENERAL: The patient is alert and oriented times three. Not in any acute distress. HEENT: No significant pallor, icterus or lymphadenopathy. The pupils are reactant to light. Oral cavity: There are no mucous membrane lesions. Funduscopic examination: The fundus is not visualized NECK: Trachea appears to be central. No masses noted. No JVD or thyromegaly appreciated. No carotid bruit. RESPIRATORY: Chest is symmetrical. No intercostals muscle retraction or any accessory muscle activation. There is no chest wall tenderness. Breath sounds are heard bilaterally. No rales or rhonchi heard. No evidence of any consolidation. BREASTS: Deferred. HEART: The PMI could not be palpated. No palpable precordial events. S1 and S2 are normal. No S3 or S4 heard. No pericardial rub or any click heard. ABDOMEN: No vessel pulsations or distention. No tenderness. No organomegaly appreciated. Abdomen is obese. No abdominal bruit. Bowel sounds are normally heard. : Deferred. RECTAL: Deferred. LYMPHATIC: No lymphadenopathy noted in the neck or groin. EXTREMITIES: No significant edema cyanosis. Extensive scarring with skin grafting in the low both lower extremities MUSCULOSKELETAL: No acute joint deformities or swelling SKIN: There are no skin rashes NEUROPSYCHIATRIC: The patient is alert and oriented x3. Appears to be in a good mood. The higher functions are grossly within normal limits. No tremors or rigidity noted. Data Labs: Other Labs: Abnormal lab results 09/12/19 09/12/19 09/12/19 Range/Units 00:27 02:50 06:13 RBC 3.76 L (4.1-5.3) 10^6/u L Hgb 10.7 L (11.7-16.6) g/dL Hct 33.2 L (42.0-52.0) % Carbon Dioxide (22-29) mmol/L BUN (6-20) mg/dL Creatinine (0.7-1.2) mg/dL GFR Calculation (90-130) mL/min Glucose (65-115) mg/dL Troponin I 6 Hour (0-15) ng/mL Troponin T Baselin e 36 H (0-15) ng/mL Troponin T 120 Min [place] 35.50 H (0-15) ng/mL Delta Troponin T -0.50 L (0-10) ABS# 09/12/19 09/12/19 Range/Units 06:13 06:13 RBC (4.1-5.3) 10^6/u L Hgb (11.7-16.6) g/dL Hct (42.0-52.0) % Carbon Dioxide 30 H (22-29) mmol/L BUN 25 H (6-20) mg/dL Creatinine 1.8 H (0.7-1.2) mg/dL GFR Calculation 40.0 L (90-130) mL/min Glucose 124 H (65-115) mg/dL Troponin I 6 Hour 36.16 H (0-15) ng/mL Troponin T Baselin e (0-15) ng/mL Troponin T 120 Min [place] (0-15) ng/mL Delta Troponin T (0-10) ABS# Imaging^: Other Imaging: My impression: Myocardial perfusion imaging from 09/11/2019 revealed 1. Features suggestive of myocardial scarring in the distribution of all the 3 coronary arteries with a subtle area of ischemia in the distribution of the right coronary artery at the mid inferior wall region. 2. Diminished LV ejection fraction of 34%. 3. Multiple wall motion normalities as mentioned above. 4. Moderately dilated LV cavity with an end-systolic volume of 131 mL. No similar previous studies are available for comparison CXR: My impression: Borderline cardiac silhouette with no lung infiltrate. No acute pathology noted. No significant pleural effusion. A&P Assessment and plan (1) Atherosclerotic heart disease of [place] coronary artery with other forms of angina pectoris: Patient chest pain is somewhat chronic, atypical and stable. No evidence of any acute medical injury. Hemodynamically seems to be stable. Area of ischemia is very small, based on the perfusion scan. Since the patient had a multiple coronary angiograms in the recent years with no significant change in the coronary anatomy, it might be appropriate to continue optimizing the medical treatment. I may increase the dose of isosorbide to maximum 120 mg as tolerated. Status: Acute (2) Ischemic cardiomyopathy: Currently the patient has no evidence of decompensation. May continue on the current Lasix. May adjust the dose on a as needed basis Status: Acute (3) Chronic systolic heart failure: Currently appears to be compensated. Continue on the current medications. Apparently the patient had some problems with the MACIEJ inhibitor/ARB. So we may hold off on the Entresto Status: Acute (4) Obesity (BMI 30-39.9): Importance of lifestyle modification was discussed. Compliance to diet, exercise, medication and medical follow-up were discussed. Status: Acute (5) Diabetes: Status: Acute Qualifiers: Diabetes mellitus type: type 2 Diabetes mellitus assisted insulin use: without assisted use Diabetes mellitus complication status: with hyperglycemia Qualified Code(s): E11.65 - Type 2 diabetes mellitus with hyperglycemia (6) Benign essential hypertension with target blood pressure below 140/90: Since her blood pressure seems to be staying in the normal range, may continue on the current medications for the time being Status: Acute (7) Chronic kidney disease: Continue to monitor the kidney function and blood pressure closely Status: Acute Qualifiers: Chronic kidney disease stage: stage 3 (moderate) Qualified Code(s): N18.3 - Chronic kidney disease, stage 3 (moderate) Additional A&P Information Based on the patient clinical progress and the results of the above, further recommendations will be made. 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
--- NOTE | 2019-09-12 16:27 | PC.NURSE ---
Addendum entered by Issac Samuels RN 09/12/19 16:40: Pt stated that he got up and walk around the room and got short of breath. and applied the oxygen back on. he reports of chest pressure at 4-5. He requested Morphine. Original Note: Pt applied his oxygen back on does not qualify for home oxygen
[2019-09-12 16:58] LABS: Glucose Point of Care 188 mg/dL (70-110)
[2019-09-12 20:33] LABS: Glucose Point of Care 213 mg/dL (70-110)
[2019-09-12] MEDS: ALPRAZolam 0.25 mg Tablet PO (20:37)
[2019-09-13] VITALS (8 sets, daily range): BP systolic 126–145; BP diastolic 71–86; PULSE 66–79; RESP 18–19; TEMP 36.1–36.9; O2SAT 94–96
[2019-09-13] MEDS: morphine 4 mg/mL SDV 1 mL 2 MG IVP (03:41)
[2019-09-13 05:25] LABS: Basophils # 0.1 10^3/uL (0.0-0.1); Basophils % 0.8 %; Eosinophils # 0.2 10^3/uL (0.0-0.8); Eosinophils % 3.3 %; Hematocrit 32.8 % (42.0-52.0); Hemoglobin 10.4 g/dL (11.7-16.6); Lymphocytes # 2.1 10^3/uL (0.8-4.8); Mean Corpuscular HGB Conc 31.7 g/dL (30.0-36.0); Mean Corpuscular Hemoglobin 28.6 pg (28.0-34.0); Mean Corpuscular Volume 90.1 fL (80-94); Mean Platelet Volume 9.5 fL (7.4-10.4); Monocytes # 0.6 10^3/uL (0.2-0.9); Monocytes % 8.7 %; Neutrophils # 4.2 10^3/uL (1.8-7.7); Neutrophils % 58.1 %; Nucleated Red Blood Cells % 0 %; Platelet Count 269 10^3/cmm (130-400); Red Blood Count 3.64 10^6/uL (4.1-5.3); White Blood Count 7.3 10^3/uL (4.0-10.0)
[2019-09-13 05:42] LABS: Anion Gap 16.5 (5-19); Blood Urea Nitrogen 31 mg/dL (6-20); Calcium 8.9 mg/dL (8.5-10.5); Carbon Dioxide 28 mmol/L (22-29); Chloride 99 mmol/L (98-107); Glomerular Filtration Rate 42.7 mL/min (90-130); Glucose 135 mg/dL (65-115); Osmolality Calculated 289 mOsm/kg (285-295); Potassium 3.5 mmol/L (3.5-5.1); Sodium 140 mmol/L (136-145)
[2019-09-13] MEDS: FUROsemide 10 mg/mL SDV 4mL 40 MG IVP (06:18)
[2019-09-13] MEDS: isosorbide mononitrate ER 60 mg Tablet PO (06:18)
[2019-09-13 06:36] LABS: Glucose Point of Care 120 mg/dL (70-110)
--- NOTE | 2019-09-13 09:44 | PM.PN ---
Subjective Subjective: Interval history: Patient is feeling better. He had some episodes of chest pain yesterday. The dose of the nitroglycerin was increased. Today he is feeling better. Medications: Reviewed: Yes Medication Review Details: Current Medications Acetaminophen (Tylenol) 650 mg PO Q6H PRN PRN Reason: Mild/Mod Pain Or Temp >/= 101 Alprazolam (Xanax) 0.25 mg PO BEDTIME [facility] Last Admin: 09/12/19 20:37 Dose: 0.25 mg Documented by: Amlodipine Besylate (Norvasc) 5 mg PO DAILY [facility] Last Admin: 09/12/19 09:40 Dose: 5 mg Documented by: Aspirin (Aspirin Ec) 81 mg PO BID [facility] Last Admin: 09/12/19 18:09 Dose: 81 mg Documented by: Atorvastatin Calcium (Lipitor) 40 mg PO DAILY [facility] Last Admin: 09/12/19 09:39 Dose: 40 mg Documented by: Clopidogrel Bisulfate (Plavix) 75 mg PO DAILY [facility] Last Admin: 09/12/19 09:40 Dose: 75 mg Documented by: Dextrose (D50w) 25 ml IVP ONCE PRN; Protocol PRN Reason: hypoglycemia protocol Dextrose (D50w) 50 ml IVP PRN PRN; Protocol PRN Reason: hypoglycemia protocol Furosemide (Lasix) 40 mg IVP Q12H [facility] Last Admin: 09/13/19 06:18 Dose: 40 mg Documented by: Glucagon (Glucagen) 1 mg IM ONCE PRN; Protocol PRN Reason: Adult Acute Hypoglycemia Prot. Hydralazine HCl (Apresoline) 25 mg PO BID [facility] Last Admin: 09/12/19 18:09 Dose: 25 mg Documented by: Dextrose (D5w) 500 mls @ 100 mls/hr IV ONCE PRN; Protocol PRN Reason: Adult Acute Hypoglycemia Prot Insulin Aspart (Novolog) 0 unit SUBCUT WM&BEDTIME [facility]; Protocol Last Admin: 09/13/19 08:35 Dose: Not Given Documented by: Isosorbide Mononitrate (Imdur) 60 mg PO QAM [facility] Last Admin: 09/13/19 06:18 Dose: 60 mg Documented by: Isosorbide Mononitrate (Imdur) 60 mg PO QPM [facility] Last Admin: 09/12/19 18:09 Dose: 60 mg Documented by: Levothyroxine Sodium (Synthroid) 88 mcg PO DAILY [facility] Last Admin: 09/12/19 09:40 Dose: 88 mcg Documented by: Methocarbamol (Robaxin) 750 mg PO TID PRN PRN Reason: Muscle Spasm Metoprolol Tartrate (Lopressor) 50 mg PO BID [facility] Last Admin: 09/12/19 18:10 Dose: 50 mg Documented by: Morphine Sulfate (Morphine) 2 mg IVP Q6H PRN PRN Reason: SEVERE PAIN Last Admin: 09/13/19 03:41 Dose: 2 mg Documented by: Promethazine HCl (Phenergan) 25 mg PO Q6H PRN PRN Reason: Nausea And Vomiting Last Admin: 09/12/19 00:35 Dose: 25 mg Documented by: Vitals/I&O/Wt Last Vital Signs Temp 98.4 F 09/13/19 07:30 Pulse 70 09/13/19 07:30 Resp 18 09/13/19 07:30 BP 145/78 09/13/19 07:30 Pulse Ox 96 09/13/19 08:51 09/12/19 09/13/19 09/13/19 22:59 06:59 14:59 Intake Total 236 / 680 480 / 1160 360 / 360 Output Total 500 / 1900 850 / 2750 Balance -264 / -1220 -370 / -1590 360 / 360 Physical Exam Narrative: EXAM NARRATIVE: GENERAL: The patient is alert and oriented times three. Not in any acute distress. HEENT: No significant pallor, icterus or lymphadenopathy. The pupils are reactant to light. Oral cavity: There are no mucous membrane lesions. Funduscopic examination: The fundus is not visualized NECK: Trachea appears to be central. No masses noted. No JVD or thyromegaly appreciated. No carotid bruit. RESPIRATORY: Chest is symmetrical. No intercostals muscle retraction or any accessory muscle activation. There is no chest wall tenderness. Breath sounds are heard bilaterally. No rales or rhonchi heard. No evidence of any consolidation. BREASTS: Deferred. HEART: The PMI could not be palpated. No palpable precordial events. S1 and S2 are normal. No S3 or S4 heard. No pericardial rub or any click heard. ABDOMEN: No vessel pulsations or distention. No tenderness. No organomegaly appreciated. Abdomen is obese. No abdominal bruit. Bowel sounds are normally heard. : Deferred. RECTAL: Deferred. LYMPHATIC: No lymphadenopathy noted in the neck or groin. EXTREMITIES: No significant edema cyanosis. Extensive scarring with skin grafting in the low both lower extremities MUSCULOSKELETAL: No acute joint deformities or swelling SKIN: There are no skin rashes NEUROPSYCHIATRIC: The patient is alert and oriented x3. Appears to be in a good mood. The higher functions are grossly within normal limits. No tremors or rigidity noted. Data : 09/13/19 04:48 09/13/19 04:48 A&P Assessment and plan (1) Atherosclerotic heart disease of [place] coronary artery with other forms of angina pectoris: Patient chest pain is somewhat chronic, atypical and stable. No evidence of any acute medical injury. Hemodynamically seems to be stable. Area of ischemia is very small, based on the perfusion scan. Since the patient had multiple coronary angiograms in the recent years with no significant change in the coronary anatomy, it might be appropriate to continue optimizing the medical treatment. May continue on the current dose of medications. Status: Acute (2) Ischemic cardiomyopathy: Currently the patient has no evidence of decompensation. May continue on the current Lasix. May adjust the dose on a as needed basis Status: Acute (3) Chronic systolic heart failure: Currently appears to be compensated. Continue on the current medications. Apparently the patient had some problems with the MACIEJ inhibitor/ARB. So we may hold off on the Entresto Status: Acute (4) Obesity (BMI 30-39.9): Importance of lifestyle modification was discussed. Compliance to diet, exercise, medication and medical follow-up were discussed. Status: Acute (5) Diabetes: Blood sugar needs to be better controlled. Patient is poorly compliant with the diet. Importance of compliance was discussed Status: Acute Qualifiers: Diabetes mellitus complication status: with hyperglycemia Diabetes mellitus detention insulin use: without termite treater use Diabetes mellitus type: type 2 Qualified Code(s): E11.65 - Type 2 diabetes mellitus with hyperglycemia (6) Benign essential hypertension with target blood pressure below 140/90: Since her blood pressure seems to be staying in the normal range, may continue on the current medications for the time being Status: Acute (7) Chronic kidney disease: Continue to monitor the kidney function and blood pressure closely Status: Acute Qualifiers: Chronic kidney disease stage: stage 3 (moderate) Qualified Code(s): N18.3 - Chronic kidney disease, stage 3 (moderate) Additional A&P Information Since the patient's overall cardiovascular status seems to be stable, he may not require any further interventions at this time. Attestations Medical Necessity Statement*: Possible discharge home today. Discussed with the Dr. Watson Coding Level of Care Code Acute [employer] for [employer] Diagnoses Atherosclerotic heart disease of [place] coronary 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 Ischemic cardiomyopathy I25.5 Chronic systolic heart failure I50.22 Obesity (BMI 30-39.9) E66.9 Diabetes E11.65 Diabetes mellitus complication status: with hyperglycemia Diabetes mellitus detention insulin use: without termite treater use Diabetes mellitus type: type 2 Benign essential hypertension with target blood pressure below 140/90 I10 Chronic kidney disease N18.3 Chronic kidney disease stage: stage 3 (moderate)
[2019-09-13] MEDS: clopidogrel 75 mg Tablet PO (09:59)
[2019-09-13] MEDS: atorvastatin 40 mg Tablet PO (09:59)
[2019-09-13] MEDS: levothyroxine 88 mcg Tablet PO (09:59)
[2019-09-13] MEDS: aspirin 81 mg EC Tablet PO (10:00)
[2019-09-13] MEDS: metoprolol tartrate 50 mg Tablet PO (10:00)
[2019-09-13] MEDS: hyDRALAzine 25 mg Tablet PO (10:00)
[2019-09-13] MEDS: amlodipine 5 mg Tablet PO (10:00)
[2019-09-13 11:17] LABS: Glucose Point of Care 196 mg/dL (70-110)
--- NOTE | 2019-09-13 13:02 | PM.DCS ---
Discharge Providers Date of Admission: 09/11/19 22:35 Date of Discharge: September 13, 2019 Attending Provider at Admission: Nancy Watson MD Attending Provider at Discharge: Nancy Watson MD Primary Care Provider: Kp Montanez DO Diagnoses at Discharge Discharge Diagnosis (1) Atherosclerotic heart disease of [place] coronary artery with other forms of angina pectoris: Status: Acute (2) Ischemic cardiomyopathy: Status: Acute (3) Chronic systolic heart failure: Status: Acute (4) Obesity (BMI 30-39.9): Status: Acute (5) Diabetes: Status: Acute Qualifiers: Diabetes mellitus type: type 2 Diabetes mellitus manager intermediate insulin use: without residential use Diabetes mellitus complication status: with hyperglycemia Qualified Code(s): E11.65 - Type 2 diabetes mellitus with hyperglycemia (6) Benign essential hypertension with target blood pressure below 140/90: Status: Acute (7) Chronic kidney disease: Status: Acute Qualifiers: Chronic kidney disease stage: stage 3 (moderate) Qualified Code(s): N18.3 - Chronic kidney disease, stage 3 (moderate) Reason for Visit Reason for Visit: Reason For Visit: CHEST PAIN Hospital Course Discharge Summary: Mr. Campa is a 49-year-old male with a history of CAD, multiple PCI's in the past, multiple cardiac catheterization, cardiomyopathy with EF of 35%, CHF and chronic chest pain who was admitted to the hospital on with complaints of chest pain. Of note upon patient does have chronic chest pain syndrome. He has had multiple coronary angiogram in the recent years, most recently in January 2019 at [facility] in [place] which was within normal limits. His chest pain was improving with sublingual nitro. Because of concerns for ongoing angina he underwent a stress test on September 10. 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 He was evaluated by cardiology because of ongoing chest pain and shortness of breath, recommendations were made to increase his Imdur for antianginal effect. He is currently euvolemic at the time of discharge, though was briefly noted to be fluid overloaded. He received diuresis with 40 mg of IV Lasix and responded well to this treatment. He had a home O2 eval yesterday which did not qualify him for home oxygen. He is ambulatory today and is doing well ready for discharge. His kidney function has trended back to baseline. He also has a history of PE in January 2019. CTA of the chest was done upon admission and was negative. 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 EXT: no gross pitting edema Discharge Data Data Completed and Pending: Completed Studies During Hospitalization Category Date Time Status CT angio chest PE protcl [id number] Urge nt Cat Scan 09/10/19 14:33 Completed Sestamibi Stress Test Request Routi ne Exams 09/11/19 06:00 Completed XR chest 1V chase ble [id number] Stat Exams 09/10/19 13:22 Completed NM mibi stress re st [NM michelle perf SP ECT r/s* [id number]] Nuc Med 09/11/19 06:13 Completed Routine Labs from last 24 hours 09/13/19 09/13/19 09/13/19 11:14 06:16 04:48 WBC RBC Hgb Hct MCV MCH MCHC RDW Plt Count MPV Neut % (Auto) Lymph % (Auto) [place] % (Auto) Eos % (Auto) Baso % (Auto) Neut # (Auto) Lymph # (Auto) [place] # (Auto) Eos # (Auto) Baso # (Auto) Nucleated RBC % (a uto) Nucleated RBCs # Sodium 140 Potassium 3.5 Chloride 99 Carbon Dioxide 28 Anion Gap 16.5 BUN 31 H Creatinine 1.7 H GFR Calculation 42.7 L Glucose 135 H POC Glucose 196 120 Calculated Osmolal ity 289 Calcium 8.9 09/13/19 09/12/19 09/12/19 04:48 20:28 16:54 WBC 7.3 RBC 3.64 L Hgb 10.4 L Hct 32.8 L MCV 90.1 MCH 28.6 MCHC 31.7 RDW 15.0 Plt Count 269 MPV 9.5 Neut % (Auto) 58.1 Lymph % (Auto) 29.0 [place] % (Auto) 8.7 Eos % (Auto) 3.3 Baso % (Auto) 0.8 Neut # (Auto) 4.2 Lymph # (Auto) 2.1 [place] # (Auto) 0.6 Eos # (Auto) 0.2 Baso # (Auto) 0.1 Nucleated RBC % (a uto) 0 Nucleated RBCs # 0.0 Sodium Potassium Chloride Carbon Dioxide Anion Gap BUN Creatinine GFR Calculation Glucose POC Glucose 213 188 Calculated Osmolal ity Calcium Vitals: Last Vital Signs Temp 98.4 F 09/13/19 11:25 Pulse 79 09/13/19 11:25 Resp 18 09/13/19 11:25 BP 126/71 09/13/19 11:25 Pulse Ox 94 09/13/19 11:25 Discharge Plan Discharge Patient Disposition: Home, Self-Care Condition: Stable Prescriptions: Continued (DME) diabetic shoes Qty: 1 RF: 0 promethazine 25 mg tablet 25 mg PO Q6H PRN (Reason: Nausea And Vomiting) RF: 0 multivitamin [Daily Multi-Vitamin] Tablet 1 tab PO QAM RF: 0 methocarbamol 750 mg tablet 750 mg PO TID PRN (Reason: Muscle Spasm) RF: 0 glipizide 10 mg tablet 10 mg PO DAILY RF: 0 levothyroxine 88 mcg capsule 88 mcg PO DAILY RF: 0 metoprolol tartrate 50 mg tablet 50 mg PO BID RF: 0 nitroglycerin [Nitrostat] 0.4 mg tablet, sublingual 0.4 mg SUBLINGUAL Q5M PRN (Reason: Chest Pain) RF: 0 metformin 500 mg tablet 500 mg PO BID RF: 0 Trulicity 0.75 mg/0.5 mL pen injector 0.75 mg SUBCUT Q7D RF: 0 furosemide [Lasix] 40 mg tablet 40 mg PO QAM RF: 0 amlodipine 5 mg tablet 5 mg PO DAILY RF: 0 aspirin 81 mg tablet,delayed release (DR/EC) 81 mg PO BID RF: 0 atorvastatin 40 mg tablet 40 mg PO DAILY RF: 0 hydralazine 25 mg tablet 25 mg PO BID RF: 0 clopidogrel 75 mg tablet 75 mg PO DAILY Qty: 90 RF: 3 Changed isosorbide mononitrate 30 mg Tablet Extended Release 24 Hr 60 mg PO BID 30 Days Qty: 60 RF: 0 Discharge Orders: Discharge Order (Routine); Ordered 09/13/19 Ordered By: Nancy Watson Referrals: Tory Lopez MD [Physician] - 7-10 days Discharge Diet: Cardiac, Diabetic, Low Cholesterol and Low Fat Discharge Activity: Resume usual activity Discharge Attestations Time Spent in Discharge Care*: greater than 30 min Quality Metrics Clinical Quality Measures During this hospital stay, did patient experience: None Coding Level of Care Code Acute Matching Machine Operator for Chg Fwd Diagnoses Atherosclerotic heart disease of [place] coronary 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 Ischemic cardiomyopathy I25.5 Chronic systolic heart failure I50.22 Obesity (BMI 30-39.9) E66.9 Diabetes E11.65 Diabetes mellitus type: type 2 Diabetes mellitus residential insulin use: without manager intermediate use Diabetes mellitus complication status: with hyperglycemia Benign essential hypertension with target blood pressure below 140/90 I10 Chronic kidney disease N18.3 Chronic kidney disease stage: stage 3 (moderate)
== END 2019-09-13 15:37 | disposition home or self-care (01) | DRG 302 ==
LOC: ER 17:10 → MEDSURG 17:11
PROVIDERS: Hospitalist; Admitting Provider Student in an Organized Health Care Education/Training Program; Emergency Provider Emergency Medicine; Family Provider Internal Medicine; PCP Internal Medicine; Visit Provider Student in an Organized Health Care Education/Training Program
DX: I25.118 Atherosclerotic heart disease of native coronary artery with other forms of angina pectoris (principal); I50.23 Acute on chronic systolic (congestive) heart failure; I13.0 Hypertensive heart and chronic kidney disease with heart failure and stage 1 through stage 4 chronic kidney disease, or unspecified chronic kidney disease; N18.3 Chronic kidney disease, stage 3 (moderate); E11.22 Type 2 diabetes mellitus with diabetic chronic kidney disease; E11.65 Type 2 diabetes mellitus with hyperglycemia; E78.5 Hyperlipidemia, unspecified; Z95.5 Presence of coronary angioplasty implant and graft; Z86.711 Personal history of pulmonary embolism; Z86.718 Personal history of other venous thrombosis and embolism; Z79.01 Long term (current) use of anticoagulants; D63.1 Anemia in chronic kidney disease; F32.9 Major depressive disorder, single episode, unspecified; M21.372 Foot drop, left foot; I25.2 Old myocardial infarction; E03.9 Hypothyroidism, unspecified; M47.9 Spondylosis, unspecified; Z90.79 Acquired absence of other genital organ(s); I25.5 Ischemic cardiomyopathy; G89.29 Other chronic pain; E66.9 Obesity, unspecified; Z68.37 Body mass index [BMI] 37.0-37.9, adult
CPT/HCPCS: 12345; 36415; 36416; 36591; 71045; 71275; 78452; 80048; 80053; 82962; 83036; 83690; 83880; 84484; 85025; 93005; 93017; 96372; 96374; 96375; 99283; A9500; G0378; J1200; J1720; J1815; J1940; J2270; J2550; J2785; J7030; Q0169; Q9967

== ENCOUNTER 2019-10-14 13:49 | Outpatient (CLI) | payer MEDICARE, MEDICAID, SELFPAY ==
[2019-10-14 15:05] VITALS: BP 122/85; PULSE 81; RESP 18; TEMP 36.1; O2SAT 96
== END 2019-10-14 13:50 | disposition home or self-care (01) ==
LOC: OPS 13:54
PROVIDERS: PCP Internal Medicine; Visit Provider Family Medicine
DX: N18.9 Chronic kidney disease, unspecified (principal)
CPT/HCPCS: 96368; 96523

== ENCOUNTER 2019-10-27 12:47 | Outpatient (RCR) | payer SELFPAY | END 2019-11-17 23:59 | disposition home or self-care (01) | LOC: CR 12:47 | PROVIDERS: PCP Internal Medicine; Referring Provider Internal Medicine Cardiovascular Disease; Visit Provider Internal Medicine Cardiovascular Disease | DX: I20.8 Other forms of angina pectoris (principal) ==

== ENCOUNTER 2019-11-12 11:55 | Outpatient (CLI) | payer MEDICARE, MEDICAID, SELFPAY ==
[2019-11-12 12:44] VITALS: BP 127/70; PULSE 78; RESP 18; TEMP 36.8; O2SAT 97
== END 2019-11-12 11:56 | disposition home or self-care (01) ==
LOC: GILAB 11:59
PROVIDERS: PCP Internal Medicine; Visit Provider Internal Medicine
DX: Z95.828 Presence of other vascular implants and grafts (principal)
CPT/HCPCS: 96368; 96523; J1642

== ENCOUNTER 2019-11-18 11:05 | Outpatient (RCR) | payer SELFPAY | END 2019-12-18 23:59 | disposition home or self-care (01) | LOC: CR 11:05 | PROVIDERS: PCP Internal Medicine; Referring Provider Internal Medicine Cardiovascular Disease; Visit Provider Internal Medicine Cardiovascular Disease | DX: I20.8 Other forms of angina pectoris (principal) ==

== ENCOUNTER 2019-12-01 15:34 | Inpatient (IN) | payer MEDICARE, MEDICAID, SELFPAY ==
[2019-12-01] VITALS (7 sets, daily range): BP systolic 133–159; BP diastolic 79–91; PULSE 75–83; RESP 16–22; TEMP 36.4–36.9; O2SAT 95–97; BMI 36.6
--- NOTE | 2019-12-01 16:44 | ECG_ITS ---
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 Measurements Intervals [place] Rate: 81 P: 9 AL: 171 QRS: -34 QRSD: 98 T: 31 QT: 394 QTc: 458 Interpretive Statements SINUS RHYTHM ANTERIOR MYOCARDIAL INFARCTION [40+ ms Q WAVE AND/OR ST/T ABNORMALITY IN V3/V4], PROBABLY OLD INFERIOR MYOCARDIAL INFARCTION [40+ ms Q WAVE AND/OR ST/T ABNORMALITY IN II/aVF], PROBABLY OLD INTERPRETATION BASED ON A DEFAULT AGE OF 40 YEARS Compared to ECG 09/12/2019 04:03:20 T-wave abnormality no longer present Possible ischemia no longer present Myocardial infarct finding still present Electronically Signed On 12-01-2019 19:17:55 CDT by Rosi Vee M.D. [id number]
[2019-12-01] MEDS: acetaminophen 500 mg Tablet 1000 MG PO (17:48)
[2019-12-01 17:49] LABS: Basophils # 0.1 10^3/uL (0.0-0.1); Basophils % 0.9 %; Eosinophils # 0.2 10^3/uL (0.0-0.8); Eosinophils % 2.9 %; Hematocrit 35.3 % (42.0-52.0); Hemoglobin 11.3 g/dL (11.7-16.6); Lymphocytes # 1.8 10^3/uL (0.8-4.8); Lymphocytes % 22.1 %; Mean Corpuscular Hemoglobin 28.3 pg (28.0-34.0); Mean Corpuscular Volume 88.3 fL (80-94); Mean Platelet Volume 9.6 fL (7.4-10.4); Monocytes # 0.7 10^3/uL (0.2-0.9); Monocytes % 9.1 %; Neutrophils # 5.15 10^3/uL (1.8-7.7); Neutrophils % 64.7 %; Nucleated Red Blood Cells % 0 %; Platelet Count 282 10^3/cmm (130-400)
--- NOTE | 2019-12-01 17:58 | CTR_ITS ---
PROCEDURE INFORMATION: Exam: CT Head Without Contrast Exam date and time: 12/01/2019 6:07 PM Age: 49 years old Clinical indication: Pain; Headache; Additional info: CHRISTOPHER TECHNIQUE: Imaging protocol: Computed tomography of the head without contrast. Sagittal and coronal reformatted images were created and reviewed. Radiation optimization: All CT scans at this facility use at least one of these dose optimization techniques: automated exposure control; mA and/or kV adjustment per patient size (includes targeted exams where dose is matched to clinical indication); or iterative reconstruction. COMPARISON: CT head wo con* [id number] 08/15/2018 9:11 PM RADIATION DOSE METRICS: Total DLP (mGy-cm): 918.7 FINDINGS: Brain: No acute intracranial hemorrhage. No acute infarct. No intra-axial or extra-axial masses. Martel-white matter differentiation is preserved. No cerebral edema. No extra-axial fluid collections. No midline shift. No evidence for Chiari 1 malformation. Ventricles: No hydrocephalus. Bones/joints: No acute fracture. Sinuses: Visualized paranasal sinuses are clear. Mastoid air cells: Visualized mastoid air cells are clear. Orbits: No acute abnormality in the visualized orbits. Vasculature: Atherosclerotic changes in the visualized arteries. Soft tissues: No acute abnormality of the extracranial soft tissues. CT/CT head wo con* [id number] IMPRESSION: 1. No acute abnormality of the brain. 2. Incidental/nonacute findings are listed in the report. Radiation Dose CTDIVOL = (mGy): DLP = 918.7 (mGy-cm)
--- NOTE | 2019-12-01 18:01 | ED_ITS ---
HPI - Chest Pain General: Chief Complaint: Chest Pain Stated Complaint: cp,palomo Time Seen by Provider: 12/01/19 16:54 Source: patient Mode of arrival: ambulatory Limitations: no limitations History of Present Illness: HPI narrative: Mr. Queen is a nice 49-year-old male who comes in complaining of chest pain. He describes the chest pain as a pressure that radiates up to his neck arm and jaw. He has associated nausea and shortness of breath. He has had diaphoresis and been near syncopal with this. Nitro makes his symptoms better and nothing makes them worse. Patient has known cardiac disease but has been quite sometime since he had a full evaluation. Associated symptoms: Reports diaphoresis, dyspnea and nausea; Deny abdominal pain, fever(s), palpitations, syncope or vomiting Review of Systems Const: Reports: diaphoresis; Denies: fever(s), chills, body aches, fatigue or malaise Eyes: Denies: change in vision, blurry vision, blind spots, photophobia, eye discharge or eye redness ENMT: Denies: throat pain, odynophagia, hoarseness, swelling of lips/tongue, oral sores, ear or mastoid pain, ear discharge, change in hearing or nasal discharge Card: Reports: chest pain; Denies: palpitations, irregular heart rhythm, edema, lightheadedness, syncope, dyspnea on exertion or orthopnea Resp: Reports: dyspnea; Denies: productive cough, non-productive cough, wheezing, hemoptysis or chest congestion GI: Reports: nausea; Denies: abdominal pain, vomiting, hematemesis, coffee ground emesis, heartburn, diarrhea, constipation, GI cramping, hematochezia or melena : Denies: flank pain, dysuria, urinary frequency, urinary urgency or hematuria Musc: Denies: neck pain, back pain, extremity pain, extremity swelling, joint pain, joint swelling, joint redness, joint warmth or joint stiffness Skin/Breast: Denies: rash, pruritus, erythema, skin tenderness or jaundice Neuro: Reports: headache(s); Denies: numbness in extremities, weakness in extremities, sensory changes, lack of coordination, difficulty walking, dizziness, vertigo, confusion, Slurred speech present or seizure-like activity Dewey/Lymph: Denies: easy bruising, easy bleeding, petechiae, purpura or enlarged lymph nodes All/Imm: Denies: urticaria, throat swelling, tongue swelling, facial swelling or acute wheezing PFSH ED PFSH: Medical History Anemia Benign essential hypertension with target blood pressure below 140/90 CAD (coronary artery disease) Cardiomyopathy CHF (congestive heart failure) Chronic anticoagulation Chronic kidney disease Chronic systolic heart failure CKD (chronic kidney disease) Compartment syndrome Depression Diabetes Foot drop, left H/O acute myocardial infarction H/O deep venous thrombosis Hyperlipidemia Hypertension Hypothyroidism Obesity (BMI 30-39.9) Osteoarthritis of spine Port-A-Cath in place Subcutaneous mass of back Lipoma Systolic CHF Surgical History H/O colonoscopy 08/2015 H/O esophagogastroduodenoscopy 08/2015 H/O removal of testicle left H/O skin graft H/O vasectomy History of appendectomy History of coronary artery stent placement 5x History of excision of mass 06/08/2019: Subcutaneous mass on back History of inguinal hernia repair, bilateral 2000 History of removal of Port-a-Cath Hx of cholecystectomy Family History Grandfather Cancer skin cancer Parkinson disease Brother Hypertension Father Heart disease Mother Hypertension Stroke Aneurysm Grandmother Aneurysm Other Crohn disease Denies family history of Anesthesia complication Bleeding disorder Social History Smoking and tobacco status: never smoked Alcohol intake: former Former alcohol use details: Only holidays Substance/Drug Use: never Lives independently: Yes Household members: significant other Marital status: Single Current occupational status: disabled History of recent travel: No Physical Exam Const: COMMON NORMALS: no acute distress, patient oriented x3, no limitations, healthy appearing and well nourished GENERAL APPEARANCE: cooperative, well kempt and well developed HENMT: COMMON NORMALS: normocephalic, atraumatic, external ears normal, EAC's normal and Normal external nose present HEAD & SCALP: normal to inspection, normocephalic and atraumatic FACE & SINUS: normal facial exam and face symmetric NOSE: Normal external nose present and Normal nares present EXTERNAL EAR: Yes external ears normal EXTERNAL AUDITORY CANAL: EAC's normal MOUTH: Normal oral and palatal mucosa present, lip normal and tongue normal Eye: COMMON NORMALS: Equal, round and reactive pupils present and conjunctivae normal GENERAL EYE: appearance normal, both eyes and all related structures ALIGNMENT: Yes alignment normal PERIORBITAL: periorbital findings normal EYELID: eyelids normal CONJUNCTIVA: Yes conjunctivae normal SCLERA: sclerae normal PUPIL: Yes Equal, round and reactive pupils present Neck/C-Spine: COMMON NORMALS: full ROM, no lymphadenopathy, supple, no meningeal signs and no JVD GENERAL: Yes normal visual inspection and Yes trachea midline Chest: COMMONS NORMALS: normal inspection of the chest and normal palpation of entire chest wall Resp: COMMON NORMALS: normal respiratory effort, No retractions and No use of accessory muscles EFFORT & INSPECTION: Yes able to speak in complete sentences and Yes symmetric chest movement AUSCULTATION: no crackles, no rales, no rhonchi and no wheezes Cardio: COMMON NORMALS: no JVD, regular rate, regular rhythm, S1 normal heart sound present and S2 normal heart sound present RATE: regular rate RHYTHM: regular rhythm HEART SOUNDS: S1 normal heart sound present, S2 normal heart sound present, no click, no gallops, no murmurs, no rubs and abnormal split S2 GI: COMMON NORMALS: Soft to palpation and No hepatosplenomegaly present PALPATION: Yes Soft to palpation, No Tenderness to palpation present (GI), No Guarding due to palpation present (GI), No Rigid due to palpation, Yes No hepatosplenomegaly present, No Hernia present, No Palpable mass present and No Pulsatile mass present : COMMON NORMALS: Yes no CVA tenderness BLADDER/KIDNEY EXAM: Yes no CVA tenderness Back/Pelvis: COMMON NORMALS: no CVA tenderness, thoracic and lumbar spine normal to inspection, no thoracic nor lumbar tenderness and thoraco-lumbar ROM normal Extremity: COMMON NORMALS: normal to inspection, full ROM, capillary refill normal, no joint enlargement, no clubbing, cyanosis or edema and no calf tenderness Neuro: COMMON NORMALS: patient oriented x3, CN's II-XII intact bilaterally, moves all extremities, no focal motor deficits and no sensory deficits noted MENINGEAL SIGNS: Yes no meningeal signs SPEECH: speech normal Psych: COMMON NORMALS: mental status grossly normal, Normal thought process present, cooperative, normal affect, speech normal and activity/motor behavior normal APPEARANCE: Yes well kempt SPEECH: Yes normal speech THOUGHT PROCESS: Normal thought process present Skin: COMMON NORMALS: no rashes or lesions noted, turgor normal, no jaundice, no petechiae and no mottling GENERAL SKIN EXAM: no rashes or lesions noted and turgor normal Course Vital Signs: Vital signs: Vital Signs Temperature 97.6 F 12/01/19 23:56 Pulse Rate 75 12/02/19 00:41 Respiratory Rate 18 12/02/19 00:41 Blood Pressure 158/90 12/02/19 00:41 Pulse Oximetry 96 12/01/19 23:56 MDM - Chest Pain MDM Narrative: Medical decision making narrative: Patient's history was shared with Dr. Lopez, she would like the patient admitted to the hospitalist service and she will consult. The case was reviewed with Dr. Gonzalez and he is in agreement to do so. Lab Data: Labs: Lab Results 12/01/19 12/01/19 12/01/19 Range/Units 17:39 17:42 17:42 WBC 8.0 (4.0-10.0) 10^3/ uL RBC 4.00 L (4.1-5.3) 10^6/u L Hgb 11.3 L (11.7-16.6) g/dL Hct 35.3 L (42.0-52.0) % MCV 88.3 (80-94) fL MCH 28.3 (28.0-34.0) pg MCHC 32.0 (30.0-36.0) g/dL RDW 15.0 (12.1-15.1) % Plt Count 282 (130-400) 10^3/c mm MPV 9.6 (7.4-10.4) fL Neut % (Auto) 64.7 % Lymph % (Auto) 22.1 % [place] % (Auto) 9.1 % Eos % (Auto) 2.9 % Baso % (Auto) 0.9 % Neut # (Auto) 5.15 (1.8-7.7) 10^3/u L Lymph # (Auto) 1.8 (0.8-4.8) 10^3/u L [place] # (Auto) 0.7 (0.2-0.9) 10^3/u L Eos # (Auto) 0.2 (0.0-0.8) 10^3/u L Baso # (Auto) 0.1 (0.0-0.1) 10^3/u L Nucleated RBC % (a uto) 0 % Nucleated RBCs # 0.0 /100WBC D-Dimer (0-0.59) ug/mIFE U Sodium 139 (136-145) mmol/L Potassium 3.2 L (3.5-5.1) mmol/L Chloride 103 (98-107) mmol/L Carbon Dioxide 25 (22-29) mmol/L Anion Gap 14.2 (5-19) BUN 16 (6-20) mg/dL Creatinine 1.6 H (0.7-1.2) mg/dL GFR Calculation 45.8 L (90-130) mL/min Glucose 93 (65-115) mg/dL Calculated Osmolal ity 284 L (285-295) mOsm/k g Calcium 8.6 (8.5-10.5) mg/dL Magnesium 1.6 L (1.7-2.3) mg/dL Total Bilirubin 0.8 (0.15-1.2) mg/dL AST 21 (0-40) U/L ALT 19 (0-41) U/L Alkaline Phosphata se 129 (40-130) IU/L Troponin T Baselin e (0-15) ng/L Troponin T 120 Min [place] (0-15) ng/L Delta Troponin T (0-10) ABS# Total Protein 6.1 L (6.6-8.7) g/dL Albumin 3.8 (3.5-5.2) g/dL Globulin 2.3 (1.3-4.6) g/dL Urine Color Yellow (Yellow) Urine Appearance Clear (CLEAR) Urine pH 5 (5-7) Ur Specific Gravit y 1.010 (1.005-1.030) Urine Protein 2+ H (Negative) Urine Glucose (UA) Norm (Normal) Urine Ketones Negative (Negative) Urine Blood Neg (Negative) Urine Nitrate Negative (Negative) Urine Bilirubin Neg (NEGATIVE) Urine Urobilinogen Norm (Negative) mg/dL Ur Leukocyte Carmen ase Negative (Negative) Urine RBC 0-4 H (0-2) /hpf Urine WBC 0-4 H (0-5) /hpf Ur Squamous Epith Cells 0-4 H (0-5) Urine Bacteria Trace (NONE) Hepatitis A IgM Ab (Nonreactive) Hep Bs Antigen (Nonreactive) Hep Bs Antibody (0-8.5) Hep B Core Total A b (Nonreactive) Hepatitis C Antibo dy (Nonreactive) HIV 1&2 Ab & HIV 1 Ag (Non-Reactiv) HIV 1&2 Antibody (Non-Reactiv) 12/01/19 12/01/19 12/01/19 Range/Units 17:42 17:42 17:42 WBC (4.0-10.0) 10^3/ uL RBC (4.1-5.3) 10^6/u L Hgb (11.7-16.6) g/dL Hct (42.0-52.0) % MCV (80-94) fL MCH (28.0-34.0) pg MCHC (30.0-36.0) g/dL RDW (12.1-15.1) % Plt Count (130-400) 10^3/c mm MPV (7.4-10.4) fL Neut % (Auto) % Lymph % (Auto) % [place] % (Auto) % Eos % (Auto) % Baso % (Auto) % Neut # (Auto) (1.8-7.7) 10^3/u L Lymph # (Auto) (0.8-4.8) 10^3/u L [place] # (Auto) (0.2-0.9) 10^3/u L Eos # (Auto) (0.0-0.8) 10^3/u L Baso # (Auto) (0.0-0.1) 10^3/u L Nucleated RBC % (a uto) % Nucleated RBCs # /100WBC D-Dimer (0-0.59) ug/mIFE U Sodium (136-145) mmol/L Potassium (3.5-5.1) mmol/L Chloride (98-107) mmol/L Carbon Dioxide (22-29) mmol/L Anion Gap (5-19) BUN (6-20) mg/dL Creatinine (0.7-1.2) mg/dL GFR Calculation (90-130) mL/min Glucose (65-115) mg/dL Calculated Osmolal ity (285-295) mOsm/k g Calcium (8.5-10.5) mg/dL Magnesium (1.7-2.3) mg/dL Total Bilirubin (0.15-1.2) mg/dL AST (0-40) U/L ALT (0-41) U/L Alkaline Phosphata se (40-130) IU/L Troponin T Baselin e 25 H (0-15) ng/L Troponin T 120 Min [place] (0-15) ng/L Delta Troponin T (0-10) ABS# Total Protein (6.6-8.7) g/dL Albumin (3.5-5.2) g/dL Globulin (1.3-4.6) g/dL Urine Color (Yellow) Urine Appearance (CLEAR) Urine pH (5-7) Ur Specific Gravit y (1.005-1.030) Urine Protein (Negative) Urine Glucose (UA) (Normal) Urine Ketones (Negative) Urine Blood (Negative) Urine Nitrate (Negative) Urine Bilirubin (NEGATIVE) Urine Urobilinogen (Negative) mg/dL Ur Leukocyte Carmen ase (Negative) Urine RBC (0-2) /hpf Urine WBC (0-5) /hpf Ur Squamous Epith Cells (0-5) Urine Bacteria (NONE) Hepatitis A IgM Ab Non-reactive (Nonreactive) Hep Bs Antigen Non-reactive (Nonreactive) Hep Bs Antibody 3.5 (0-8.5) Hep B Core Total A b Non-reactive (Nonreactive) Hepatitis C Antibo dy Non-reactive (Nonreactive) HIV 1&2 Ab & HIV 1 Ag Non-reactive (Non-Reactiv) HIV 1&2 Antibody Non-reactive (Non-Reactiv) 12/01/19 12/01/19 Range/Units 17:42 18:50 WBC (4.0-10.0) 10^3/ uL RBC (4.1-5.3) 10^6/u L Hgb (11.7-16.6) g/dL Hct (42.0-52.0) % MCV (80-94) fL MCH (28.0-34.0) pg MCHC (30.0-36.0) g/dL RDW (12.1-15.1) % Plt Count (130-400) 10^3/c mm MPV (7.4-10.4) fL Neut % (Auto) % Lymph % (Auto) % [place] % (Auto) % Eos % (Auto) % Baso % (Auto) % Neut # (Auto) (1.8-7.7) 10^3/u L Lymph # (Auto) (0.8-4.8) 10^3/u L [place] # (Auto) (0.2-0.9) 10^3/u L Eos # (Auto) (0.0-0.8) 10^3/u L Baso # (Auto) (0.0-0.1) 10^3/u L Nucleated RBC % (a uto) % Nucleated RBCs # /100WBC D-Dimer 0.52 (0-0.59) ug/mIFE U Sodium (136-145) mmol/L Potassium (3.5-5.1) mmol/L Chloride (98-107) mmol/L Carbon Dioxide (22-29) mmol/L Anion Gap (5-19) BUN (6-20) mg/dL Creatinine (0.7-1.2) mg/dL GFR Calculation (90-130) mL/min Glucose (65-115) mg/dL Calculated Osmolal ity (285-295) mOsm/k g Calcium (8.5-10.5) mg/dL Magnesium (1.7-2.3) mg/dL Total Bilirubin (0.15-1.2) mg/dL AST (0-40) U/L ALT (0-41) U/L Alkaline Phosphata se (40-130) IU/L Troponin T Baselin e (0-15) ng/L Troponin T 120 Min [place] 23.96 H (0-15) ng/L Delta Troponin T -1.04 L (0-10) ABS# Total Protein (6.6-8.7) g/dL Albumin (3.5-5.2) g/dL Globulin (1.3-4.6) g/dL Urine Color (Yellow) Urine Appearance (CLEAR) Urine pH (5-7) Ur Specific Gravit y (1.005-1.030) Urine Protein (Negative) Urine Glucose (UA) (Normal) Urine Ketones (Negative) Urine Blood (Negative) Urine Nitrate (Negative) Urine Bilirubin (NEGATIVE) Urine Urobilinogen (Negative) mg/dL Ur Leukocyte Carmen ase (Negative) Urine RBC (0-2) /hpf Urine WBC (0-5) /hpf Ur Squamous Epith Cells (0-5) Urine Bacteria (NONE) Hepatitis A IgM Ab (Nonreactive) Hep Bs Antigen (Nonreactive) Hep Bs Antibody (0-8.5) Hep B Core Total A b (Nonreactive) Hepatitis C Antibo dy (Nonreactive) HIV 1&2 Ab & HIV 1 Ag (Non-Reactiv) HIV 1&2 Antibody (Non-Reactiv) EKG Data^: EKG 1: Attestation: I personally reviewed and interpreted this EKG as follows: EKG interpretation date: 12/01/19 EKG interpretation time: 16:51 Interpretation: Normal sinus rhythm at 81 beats a minute, left axis deviation, nonspecific ST and T wave changes, consistent with previous. Discharge Plan Discharge Patient Disposition: Placed in Observation Admit Provider: Andrew Gonzalez Clinical Impression: Unstable angina pectoris Condition: Stable Discharge Date/Time: 12/02/19 01:01 Coding Level of Care Code ED [employer] Chief Creative Officer for Chg Fwd Exam Comprehensive
[2019-12-01 18:03] LABS: Bilirubin Urine Neg (NEGATIVE); Blood Urine Neg (Negative); Glucose Urine UA Norm (Normal); Ketones Urine Negative (Negative); Leukocyte Esterase Urine Negative (Negative); Nitrate Urine Negative (Negative); Protein Urine 2+ (Negative); Urine Appearance Clear (CLEAR); Urine Color Yellow (Yellow); Urobilinogen Urine Norm (Negative); pH Urine 5 (5-7)
[2019-12-01] MEDS: nitroglycerin 1 gm/inch oint Pkt 1 INCH TOPICAL (18:09)
[2019-12-01 18:10] LABS: RBC Urine 0-4 /hpf (0-2); WBC Urine 0-4 /hpf (0-5)
[2019-12-01 18:10] LABS: Alanine Aminotransferase 19 U/L (0-41); Albumin Level 3.8 g/dL (3.5-5.2); Alkaline Phosphatase 129 IU/L (40-130); Anion Gap 14.2 (5-19); Aspartate Amino Transferase 21 U/L (0-40); Blood Urea Nitrogen 16 mg/dL (6-20); Calcium 8.6 mg/dL (8.5-10.5); Carbon Dioxide 25 mmol/L (22-29); Chloride 103 mmol/L (98-107); Globulin 2.3 g/dL (1.3-4.6); Glomerular Filtration Rate 45.8 mL/min (90-130); Glucose 93 mg/dL (65-115); Magnesium 1.6 mg/dL (1.7-2.3); Osmolality Calculated 284 mOsm/kg (285-295); Potassium 3.2 mmol/L (3.5-5.1); Sodium 139 mmol/L (136-145); Total Bilirubin 0.8 mg/dL (0.15-1.2); Total Protein 6.1 g/dL (6.6-8.7)
[2019-12-01 18:11] LABS: Add Urine Culture? No; Bacteria Urine TRACE; Squamous Epithelial Cell Urine 0-4 (0-5)
[2019-12-01 18:14] LABS: Troponin(5th) Baseline 25 ng/L (0-15)
--- NOTE | 2019-12-01 18:44 | ECG_ITS ---
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 Measurements Intervals [place] Rate: 80 P: 23 ID: [id number] QRS: -24 QRSD: 108 T: 33 QT: 379 QTc: 438 Interpretive Statements SINUS RHYTHM POSSIBLE ANTERIOR MYOCARDIAL INFARCTION , OF INDETERMINATE AGE [30 ms Q WAVE IN V3/V4, OR R < 0.2 mV IN V4] Compared to ECG 12/01/2019 16:51:02 No significant changes Electronically Signed On 12-02-2019 22:47:00 CDT by Tory Lopez M.D. [email or web address] [facility] [email or web address].[employer]/store/[id number]
[2019-12-01 19:02] LABS: D Dimer 0.52 ug/mIFEU (0-0.59)
[2019-12-01 19:11] LABS: Troponin 5 2HR 23.96 ng/L (0-15)
[2019-12-01 19:12] LABS: Troponin 5 2HR Delta -1.04 ABS# (0-10)
[2019-12-01 19:26] LABS: HIV 1 & 2 Antibody Non-Reactive (Non-Reactiv); HIV 1 & 2 Antigen Non-Reactive (Non-Reactiv)
[2019-12-01 19:37] LABS: Hepatitis A Antibody IgM Non-Reactive (Nonreactive); Hepatitis B Core AB, Total Non-Reactive (Nonreactive); Hepatitis B Surface AB 3.5 (0-8.5); Hepatitis B Surface Antigen Non-Reactive (Nonreactive); Hepatitis C Virus Antibody Non-Reactive (Nonreactive)
--- NOTE | 2019-12-01 19:58 | PC.NURSE ---
EKG done at 1946 and shown to ER doctor
--- NOTE | 2019-12-01 20:18 | P.HP_ITS ---
Providers/Chief Complaint Primary Care Provider: Kp Montanez DO Chief Complaint: cp,palomo History of Present Illness Rei Queen II is a 49 year old gentleman with history of CAD, cardiac tamponade, cardiac arrest in 2011, CHF, EF 45%, CKD, diabetes, HTN, HLD, DVT in 2009, following with cardiology Dr. Lopez, with most recent angiogram in February 2019 without noted significant stenosis, prior to that most recent stent he reports was in 2017, presents to emergency department due to episode of severe chest pressure at around 3 PM today, lasting about 15 minutes, across entire chest, at the same time was feeling lightheaded/like he was about to faint. Denies feeling like his heart was racing, but does report that has noticed occasionally feeling a thump . He states that he took 4 nitroglycerin tablets prior to coming here, with improvement in his symptoms. He reports that while in emergency department he had another episode lasting also about 15 minutes which he states improved with nitroglycerin paste, as well as pain medication. Currently he is feeling better, although feels he is afraid that pain may start up again. Review of Systems Const: Denies: fever(s), chills, body aches or malaise Eyes: Denies: change in vision or eye redness ENMT: Denies: throat pain, oral sores or ear or mastoid pain Card: Reports: chest pain, edema and pre-syncope; Denies: dyspnea on exertion Resp: Denies: dyspnea, productive cough, change in phlegm color or hemoptysis GI: Denies: abdominal pain, nausea, vomiting, diarrhea, constipation, hematochezia or melena : Denies: flank pain, difficulty urinating, urinary frequency or hematuria Musc: Denies: back pain, joint swelling or joint redness Skin/Breast: Denies: rash, sores or new lesions Neuro: Denies: headache(s), numbness in extremities, weakness in extremities, dizziness, confusion or seizure-like activity Endo: Denies: polyuria or polydipsia Dewey/Lymph: Denies: easy bleeding or purpura All/Imm: Denies: urticaria, throat swelling or tongue swelling Medications/Allergies Home Medications Medication Instructions Recorded Confirmed Last Taken Type amlodipine 5 mg tablet 5 mg PO DAILY tab 06/01/19 11/21/19 09/10/19 History aspirin 81 mg tablet,delayed 81 mg PO BID 06/01/19 11/21/19 09/10/19 History release dulaglutide 0.75 mg/0.5 mL 0.75 mg SUBCUT Q7D 06/01/19 11/21/19 09/06/19 History subcutaneous pen injector furosemide 40 mg tablet 40 mg PO QAM 06/01/19 11/21/19 09/10/19 History glipizide 10 mg tablet 10 mg PO DAILY tab 06/01/19 11/21/19 09/10/19 History hydralazine 25 mg tablet 25 mg PO BID tab 06/01/19 11/21/19 09/10/19 History levothyroxine 88 mcg capsule 88 mcg PO DAILY 06/01/19 11/21/19 09/10/19 History metformin 500 mg tablet 500 mg PO BID 06/01/19 11/21/19 09/10/19 History methocarbamol 750 mg tablet 750 mg PO TID PRN 06/01/19 11/21/19 07/06/19 History metoprolol tartrate 50 mg tablet 50 mg PO BID 06/01/19 11/21/19 09/10/19 History multivitamin 1 tab PO QAM 06/01/19 11/21/19 09/10/19 History nitroglycerin 0.4 mg sublingual 0.4 mg SUBLINGUAL Q5M PRN 06/01/19 11/21/19 09/10/19 History tablet promethazine 25 mg tablet 25 mg PO Q6H PRN 06/01/19 11/21/19 07/06/19 History diabetic shoes #1 ea 06/09/19 11/21/19 07/06/19 Rx clopidogrel 75 mg tablet 75 mg PO DAILY #90 tab 08/14/19 11/21/19 09/10/19 Rx isosorbide mononitrate 30 mg 30 mg PO BID tab 09/30/19 11/21/19 Unknown History tablet,extended release 24 hr atorvastatin 40 mg tablet 40 mg PO DAILY #30 tab 10/07/19 11/21/19 Unknown Rx citalopram 10 mg tablet 20 mg PO DAILY tab 10/27/19 11/21/19 Unknown History mupirocin 2 % topical ointment 1 applic TOPICAL TID #15 gm 11/21/19 11/21/19 Unknown Rx Allergies Allergy/AdvReac Type Severity Reaction Status Date / Time Sulfa (Sulfonamide Allergy Severe ALGY-Difficulty Verified 11/21/19 13:51 Antibiotics) Breathing codeine Allergy ALGY-Anaphy Verified 11/21/19 13:51 laxis Iodinated Contrast Media Allergy ALGY-Difficulty Verified 11/21/19 13:51 Breathing iodine Allergy ALGY-Difficulty Verified 11/21/19 13:51 Breathing ketorolac Allergy ADR-Nausea Verified 11/21/19 13:51 metoclopramide [From Reglan] Allergy ALGY-Difficulty Verified 11/21/19 13:51 Breathing nalbuphine [From Nubain] Allergy ADR-Diarrhe Verified 11/21/19 13:51 a naproxen [From Naprosyn] Allergy ADR-Vomitin Verified 11/21/19 13:51 g ondansetron [From Zofran] Allergy ADR-Abdominal Verified 11/21/19 13:51 Pain prochlorperazine Allergy ADR-Irritab Verified 07/28/19 10:06 [From Compazine] le ranolazine [From Ranexa] Allergy ALGY-Difficulty Verified 07/28/19 10:06 Swallowing PFSH Acute PFSH: Medical History Anemia Benign essential hypertension with target blood pressure below 140/90 CAD (coronary artery disease) Cardiomyopathy CHF (congestive heart failure) Chronic anticoagulation Chronic kidney disease Chronic systolic heart failure CKD (chronic kidney disease) Compartment syndrome Depression Diabetes Foot drop, left H/O acute myocardial infarction H/O deep venous thrombosis Hyperlipidemia Hypertension Hypothyroidism Obesity (BMI 30-39.9) Osteoarthritis of spine Port-A-Cath in place Subcutaneous mass of back Lipoma Systolic CHF Surgical History H/O colonoscopy 08/2015 H/O esophagogastroduodenoscopy 08/2015 H/O removal of testicle left H/O skin graft H/O vasectomy History of appendectomy History of coronary artery stent placement 5x History of excision of mass 06/08/2019: Subcutaneous mass on back History of inguinal hernia repair, bilateral 2000 History of removal of Port-a-Cath Hx of cholecystectomy Family History Grandfather Cancer skin cancer Parkinson disease Brother Hypertension Father Heart disease Mother Hypertension Stroke Aneurysm Grandmother Aneurysm Other Crohn disease Denies family history of Anesthesia complication Bleeding disorder Social History Smoking and tobacco status: never smoked Alcohol intake: former Former alcohol use details: Only holidays Substance/Drug Use: never Lives independently: Yes Household members: significant other Marital status: Single Current occupational status: disabled History of recent travel: No Vitals/I&O/Wt Last Vital Signs Temp 98.4 F 12/01/19 16:44 Pulse 83 12/01/19 17:02 Resp 22 H 12/01/19 17:02 BP 159/80 12/01/19 17:02 Pulse Ox 96 12/01/19 17:02 Weight last 48 hrs Weight 102.965 kg Physical Exam Const: COMMON NORMALS: no acute distress and patient oriented x3 HENMT: COMMON NORMALS: oropharynx normal Neck/C-Spine: COMMON NORMALS: no JVD Resp: COMMON NORMALS: normal respiratory effort and clear to auscultation bilaterally AUSCULTATION: clear to auscultation bilaterally Cardio: COMMON NORMALS: no JVD, regular rhythm, S1 normal heart sound present, S2 normal heart sound present and No murmurs present (Cardio) RHYTHM: regular rhythm HEART SOUNDS: S1 normal heart sound present and S2 normal heart sound present GI: COMMON NORMALS: Normal to inspection, nondistended, normoactive bowel sounds present, Soft to palpation and non-tender PALPATION: Yes Soft to pal pation Extremity: COMMON NORMALS: no joint enlargement GENERAL: Yes edema (2+) OTHER: Healed fasciotomy scars. No redness. No tenderness. Neuro: COMMON NORMALS: patient oriented x3 and moves all extremities Skin: COMMON NORMALS: no rashes or lesions noted GENERAL SKIN EXAM: no rashes or lesions noted Data : 12/01/19 17:42 12/01/19 17:42 A&P Assessment and plan (1) Chest pain: Chief source of chest pressure today, lasting 15 minutes. Says improved with nitroglycerin. First episode with presyncope. No ST elevation on EKG. Nonspecific changes. Troponin mildly elevated baseline 25, 2-hour I 23.96. He is currently feeling better. Discussed with him to let us know if there is any recurrence of or persistence of his symptoms. If so on the case we will treat as an unstable angina. For now complete troponin EKG series. Continue CAD medications. Cardiology evaluation in the morning with regards to further risk stratification and assessment. Status: Acute Qualifiers: Chest pain type: unspecified Qualified Code(s): R07.9 - Chest pain, unspecified Additional A&P Information Presyncope: Associated with episode of severe chest pressure. At the same time was having some shortness of breath as well. Denies any cough, sputum production or hemoptysis. Will assess TTE. Assess bilateral lower extremity duplex. Chronic anemia Mild hypokalemia: Received replacement. Recheck. Hypomagnesemia: Replaced. Chronic kidney disease: Creatinine appears to be at baseline. Currently 1.6. Lower extremity swelling: Reports gaining more water weight recently. Assess limited TTE. Does have history of cardiac tamponade, although currently blood pressure stable, elevated. Continue diuretic if blood pressures remain stable. Cardiomyopathy, CHF with reduced ejection fraction: Resume diuretic if blood pressures remain stable. Rule out any pericardial effusion. Attestations Medical Necessity Statement*: Admission of over 2 midnights continued for assessment management of chest pain, presyncope, in a patient with history of coronary artery disease, CHF, cardiac tamponade, cardiac arrest. Coding Level of Care Code Acute Glass Driller for Aaron Irene Diagnoses Chest pain R07.9 Chest pain type: unspecified
--- NOTE | 2019-12-01 22:44 | ECG_ITS ---
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 Measurements Intervals Philipp Rate: 76 P: 26 IL: 196 QRS: -38 QRSD: 106 T: 33 QT: 312 QTc: 351 Interpretive Statements SINUS RHYTHM WITH OCAASIONAL PVC'S MARKED LEFT AXIS DEVIATION [QRS AXIS < -30] ANTERIOR MYOCARDIAL INFARCTION,PROBABLY OLD WARNING: DATA QUALITY MAY AFFECT INTERPRETATION Compared to ECG 12/01/2019 19:53:34 Left-axis deviation now present Myocardial infarct finding still present Electronically Signed On 12-02-2019 17:02:54 CDT by Tory Lopez M.D. [id number]
[2019-12-01 22:55] LABS: Troponin 5 6HR 24.31 ng/L (0-15)
[2019-12-01 22:56] LABS: Troponin 5 6HR Delta -0.69 ng/L (0-12)
--- NOTE | 2019-12-01 23:25 | XRR_ITS ---
PROCEDURE INFORMATION: Exam: XR Chest, 1 View Exam date and time: 12/02/2019 12:26 AM Age: 49 years old Clinical indication: Type not specified; Prior surgery; Surgery date: 6+ months; Surgery type: Heart. Port-a-cath placement; Patient HX: C/O chest pain and radiating to neck and jaw TECHNIQUE: Imaging protocol: XR of the chest Views: Frontal portable upright view of the chest. COMPARISON: CR XR chest 1V portable [id number] 09/10/2019 1:23 PM FINDINGS: Tubes, catheters and devices: The left internal jugular venous portacatheter tip is in the lower SVC. EKG leads are present overlying the chest. Lungs: Stable left lateral basilar subsegmental atelectasis. The lungs are otherwise clear bilaterally. The pulmonary vasculature is normal. Pleural space: No pleural effusion. No pneumothorax. Heart/Mediastinum: The heart is normal in size and contour. Mediastinum: Stable. Bones/joints: The patient is status post median sternotomy with sternal cerclage wires. XR/XR chest 1V portable [id number] IMPRESSION: Stable left lateral basilar subsegmental atelectasis.
[2019-12-01] MEDS: sodium chloride 0.9% 1,000 ML 50 ML IV (23:47)
[2019-12-01] MEDS: potassium chloride ER 10 mEq Tablet 40 MEQ PO (23:48)
[2019-12-01] MEDS: magnesium sulfate premix 2 GM/50 ML PIGGYBACK IV (23:49)
[2019-12-01] MEDS: morphine 4 mg/mL SDV 1 mL IVP (23:51)
[2019-12-02] VITALS (82 sets, daily range): BP systolic 122–158; BP diastolic 71–90; PULSE 66–91; RESP 5–28; TEMP 36.4–37.1; O2SAT 85–100
--- NOTE | 2019-12-02 00:23 | PM.CONSULT ---
Providers/Reason For Consult Consulting Physican/Specialty*: Dr. Lopez, cardiology Reason for Consult*: Chest pain, h/o CAD Attending Physician: Andrew Gonzalez Primary Care Provider: Kp Montanez DO History of Present Illness History of Present Illness This is a 49 yo man with PMHx of CAD with h/o multiple stents, multiple cardiac cathetarizations, chronic chest pain, HTN, HLD, h/o DVT, DM-2, CKD stage 3, hypothyroidism, recurrent hospitalizations for chest pains and h/o PE. His first PCI was 16 years ago in [facility] and since then he has had multiple coronary angiograms. He had an angiogram followed by PCI in 2005 at a hospital in [place]. In 2009 he had a DVT of both lower extremity after a prolonged bus ride. In 2011 he was admitted to [facility] in [place] with cardiac tamponade and apparently while attempting pericardial tap he went into cardiac arrest. For this reason he had a open pericardiotomy. He also has history of spontaneous bleeding in bilateral lower extremity and subsequently developing compartment syndrome for which he had to undergo below-knee bilateral fasciotomy. He has a left upper chest wall port in place. He has had half a dozen coronary angiogram since 2015. All of them showed patent stented segments with no new revascularizable lesions. It was opted to treat him medically in those times. He was tried on Ranexa for a while but because of some allergic reactions, it had to be taken off. He was recently hospitalized for chest pain and was seen by Dr. Choi in the hospital. Stress test did not show any significant ischemia and dose of Imdur was increased. He presented to emergency department due to episodes of severe chest pressure at around 3 PM today, lasting about 15 minutes, across entire chest 7-8/10 in intensity. At the same time was feeling lightheaded/like he was about to faint. He denies feeling like his heart was racing, but does report that has noticed occasionally feeling a thump . He states that he took 4 nitroglycerin tablets prior to coming here, with improvement in his symptoms. He reports that while in emergency department he had another episode lasting also about 15 minutes which he states improved with nitroglycerin paste, as well as pain medication. Currently he is feeling somwhat better but has had at least 3 episodes of chest discomfort since 3 PM.Currently at the time of my examination, patient is having mild chest pain 2/10 in intensity. He denies any URI/UTI like symptoms. No orthopnea, PND. He has been sleeping in a recliner for a long time. He noticed weight gain of 2 lb with some leg swelling and took extra lasix 20 mg for last 2 days with decrease in swelling. He also complains that these episodes started with headache. Review of Systems Const: Denies: fever(s), chills, body aches or malaise Eyes: Denies: change in vision ENMT: Denies: throat pain Card: Reports: chest pain, edema and pre-syncope; Denies: dyspnea on exertion Resp: Denies: dyspnea, productive cough, change in phlegm color or hemoptysis GI: Denies: abdominal pain, nausea, vomiting, diarrhea, constipation, hematochezia or melena : Denies: flank pain, difficulty urinating, urinary frequency or hematuria Musc: Denies: back pain, joint swelling or joint redness Skin/Breast: Denies: rash, sores or new lesions Neuro: Denies: headache(s), numbness in extremities, weakness in extremities, dizziness, confusion or seizure-like activity Endo: Denies: polyuria or polydipsia Dewey/Lymph: Denies: easy bleeding or purpura All/Imm: Denies: urticaria, throat swelling or tongue swelling Meds/Allergies Home Medications and Allergies Home Medications Medication Instructions Recorded Confirmed Last Taken Type amlodipine 5 mg tablet 5 mg PO DAILY tab 06/01/19 11/21/19 09/10/19 History aspirin 81 mg tablet,delayed 81 mg PO BID 06/01/19 11/21/19 09/10/19 History release dulaglutide 0.75 mg/0.5 mL 0.75 mg SUBCUT Q7D 06/01/19 11/21/19 09/06/19 History subcutaneous pen injector furosemide 40 mg tablet 40 mg PO QAM 06/01/19 11/21/19 09/10/19 History glipizide 10 mg tablet 10 mg PO DAILY tab 06/01/19 11/21/19 09/10/19 History hydralazine 25 mg tablet 25 mg PO BID tab 06/01/19 11/21/19 09/10/19 History levothyroxine 88 mcg capsule 88 mcg PO DAILY 06/01/19 11/21/19 09/10/19 History metformin 500 mg tablet 500 mg PO BID 06/01/19 11/21/19 09/10/19 History methocarbamol 750 mg tablet 750 mg PO TID PRN 06/01/19 11/21/19 07/06/19 History metoprolol tartrate 50 mg tablet 50 mg PO BID 06/01/19 11/21/19 09/10/19 History multivitamin 1 tab PO QAM 06/01/19 11/21/19 09/10/19 History nitroglycerin 0.4 mg sublingual 0.4 mg SUBLINGUAL Q5M PRN 06/01/19 11/21/19 09/10/19 History tablet promethazine 25 mg tablet 25 mg PO Q6H PRN 06/01/19 11/21/19 07/06/19 History diabetic shoes #1 ea 06/09/19 11/21/19 07/06/19 Rx clopidogrel 75 mg tablet 75 mg PO DAILY #90 tab 08/14/19 11/21/19 09/10/19 Rx isosorbide mononitrate 30 mg 30 mg PO BID tab 09/30/19 11/21/19 Unknown History tablet,extended release 24 hr atorvastatin 40 mg tablet 40 mg PO DAILY #30 tab 10/07/19 11/21/19 Unknown Rx citalopram 10 mg tablet 20 mg PO DAILY tab 10/27/19 11/21/19 Unknown History mupirocin 2 % topical ointment 1 applic TOPICAL TID #15 gm 11/21/19 11/21/19 Unknown Rx Allergies Allergy/AdvReac Type Severity Reaction Status Date / Time Sulfa (Sulfonamide Allergy Severe ALGY-Difficulty Verified 11/21/19 13:51 Antibiotics) Breathing codeine Allergy ALGY-Anaphy Verified 11/21/19 13:51 laxis Iodinated Contrast Media Allergy ALGY-Difficulty Verified 11/21/19 13:51 Breathing iodine Allergy ALGY-Difficulty Verified 11/21/19 13:51 Breathing ketorolac Allergy ADR-Nausea Verified 11/21/19 13:51 metoclopramide [From Reglan] Allergy ALGY-Difficulty Verified 11/21/19 13:51 Breathing nalbuphine [From Nubain] Allergy ADR-Diarrhe Verified 11/21/19 13:51 a naproxen [From Naprosyn] Allergy ADR-Vomitin Verified 11/21/19 13:51 g ondansetron [From Zofran] Allergy ADR-Abdominal Verified 11/21/19 13:51 Pain prochlorperazine Allergy ADR-Irritab Verified 07/28/19 10:06 [From Compazine] le ranolazine [From Ranexa] Allergy ALGY-Difficulty Verified 07/28/19 10:06 Swallowing Current Medications Current Medications Generic Name Dose Route Start Last Admin Trade Name Freq PRN Reason Stop Dose Admin Sodium Chloride 1,000 mls @ 50 mls/hr 12/01/19 16:45 12/01/19 23:47 Sodium Chloride 0.9% IV 50 mls/hr .Q20H RANDY Administration Magnesium Sulfate 2 gm in 50 mls @ 50 mls/hr 12/01/19 23:42 12/01/19 23:49 Magnesium Sulfate Premix IV 12/02/19 00:41 50 mls/hr ONCE ONE Administration PFSH Acute PFSH: Medical History Anemia Benign essential hypertension with target blood pressure below 140/90 CAD (coronary artery disease) Cardiomyopathy CHF (congestive heart failure) Chronic anticoagulation Chronic kidney disease Chronic systolic heart failure CKD (chronic kidney disease) Compartment syndrome Depression Diabetes Foot drop, left H/O acute myocardial infarction H/O deep venous thrombosis Hyperlipidemia Hypertension Hypothyroidism Obesity (BMI 30-39.9) Osteoarthritis of spine Port-A-Cath in place Subcutaneous mass of back Lipoma Systolic CHF Surgical History H/O colonoscopy 08/2015 H/O esophagogastroduodenoscopy 08/2015 H/O removal of testicle left H/O skin graft H/O vasectomy History of appendectomy History of coronary artery stent placement 5x History of excision of mass 06/08/2019: Subcutaneous mass on back History of inguinal hernia repair, bilateral 2000 History of removal of Port-a-Cath Hx of cholecystectomy Family History Grandfather Cancer skin cancer Parkinson disease Brother Hypertension Father Heart disease Mother Hypertension Stroke Aneurysm Grandmother Aneurysm Other Crohn disease Denies family history of Anesthesia complication Bleeding disorder Social History Smoking and tobacco status: never smoked Alcohol intake: former Former alcohol use details: Only holidays Substance/Drug Use: never Lives independently: Yes Household members: significant other Marital status: Single Current occupational status: disabled History of recent travel: No Vitals/I&O/Wt Last Vital Signs Temp 97.6 F 12/01/19 23:56 Pulse 82 12/01/19 23:56 Resp 18 12/01/19 23:56 BP 158/81 12/01/19 23:56 Pulse Ox 96 12/01/19 23:56 Weight last 48 hrs Weight 227 lb Physical Exam Const: COMMON NORMALS: no acute distress, patient oriented x3, alert and well nourished GENERAL APPEARANCE: cooperative, comfortable, well kempt and well developed ORIENTATION/CONSCIOUSNESS: Yes oriented to person, Yes oriented to place and Yes oriented to time HENMT: COMMON NORMALS: normocephalic, atraumatic, hearing grossly normal bilaterally, external ears normal and Normal external nose present HEAD & SCALP: normocephalic and atraumatic FACE & SINUS: face symmetric NOSE: Normal external nose present EXTERNAL EAR: Yes external ears normal Eye: COMMON NORMALS: Equal, round and reactive pupils present, EOMs intact bilaterally and conjunctivae normal ALIGNMENT: Yes alignment normal CONJUNCTIVA: Yes conjunctivae normal SCLERA: sclerae normal PUPIL: Yes Equal, round and reactive pupils present Neck/C-Spine: COMMON NORMALS: supple and no JVD; negative for No carotid bruits GENERAL: Yes trachea midline Chest: COMMONS NORMALS: normal inspection of the chest CHEST: Yes Symmetrical chest wall rise and No tenderness Resp: COMMON NORMALS: normal respiratory effort and No use of accessory muscles AUSCULTATION: no crackles, no rales, no rhonchi and no wheezes Cardio: COMMON NORMALS: no JVD, regular rate, regular rhythm, S1 normal heart sound present, S2 normal heart sound present and Peripheral pulses 2+ throughout JUGULAR VENOUS DISTENTION: no JVD PALPATION: normal PMI, no heave, no palpable S3, no palpable S4 and no thrill RATE: regular rate RHYTHM: regular rhythm HEART SOUNDS: S1 normal heart sound present, S2 normal heart sound present, no gallops and no murmurs BRUITS: no carotid bruits PERIPHERAL PULSES: Peripheral pulses 2+ throughout GI: COMMON NORMALS: Normal to inspection, nondistended, normoactive bowel sounds present, Soft to palpation and non-tender PALPATION: Yes Soft to palpation RECTAL EXAM: Yes deferred Back/Pelvis: LUMBAR SPINE/LOWER BACK: Yes normal to inspection Extremity: GENERAL: Yes edema (trace bilateral edema. ) Neuro: COMMON NORMALS: patient oriented x3 and no focal motor deficits SENSORIUM/ORIENTATION: Yes alert, Yes oriented to person, Yes oriented to place and Yes oriented to time CRANIAL NERVES: Yes CN normal except as noted Psych: COMMON NORMALS: Normal thought process present APPEARANCE: Yes well kempt MOOD & AFFECT: Yes euthymic mood THOUGHT PROCESS: Normal thought process present THOUGHT CONTENT: Yes Normal thought content present ATTENTION/CONCENTRATION: Yes attention grossly intact MEMORY/COGNITION: Yes memory grossly intact INSIGHT: Good insight present (Psych) JUDGEMENT: Good judgement present (Psych) Data Labs: Other Labs: Laboratory Tests 12/01/19 12/01/19 12/01/19 17:42 18:50 22:28 Troponin T Baselin e 25 H Troponin T 120 Min [place] 23.96 H Troponin T Hi Sens 6Hr 24.31 H NT-Pro-B Natriuret Pep 12/02/19 03:30 Troponin T Baselin e Troponin T 120 Min [place] Troponin T Hi Sens 6Hr NT-Pro-B Natriuret Pep 1150 H Imaging^: Other Imaging: Radiologist's impression: # [facility] (01/26/2019): Widely patent stent in mid LAD, ramus intermedius, RCA, OM1. Mild instent restenosis in RCA. Anteroapical akinesis. LVEF=45%. Patient continues to have chest pain and shortness of breath. # [facility] (01/2019): Mild LVH, LVEF=40-45%. Apical and distal hypokinesis. Grade 1 DD. # Sestamibi [facility] (09/11/2019) IMPRESSIONS 1. Features suggestive of myocardial scarring in the distribution of all the 3 coronary arteries with a subtle area of ischemia in the distribution of the right coronary artery at the mid inferior wall region. 2. Diminished LV ejection fraction of 34%. 3. Multiple wall motion normalities as mentioned above. 4. Moderately dilated LV cavity with an end-systolic volume of 131 mL. No similar previous studies are available for comparison. [facility] (10/2016) LMCA: Medium caliber vessel. No significant stenotic lesions LAD: Medium caliber vessel. It appears to wrap around the LV apex minimally The proximal to mid stented segment appears to be widely patent. Mild diffuse disease is noted in the distal vessel. LCx: Medium caliber codominant vessel.The first and the second obtuse marginal branches were found to have a long stented segments which were widely patent. Just before the stented segment in the first obtuse marginal branch, there is a tubular narrowing of around 50%. In the second obtuse marginal branch, distal to the stented area there is a segmental narrowing of around 50%. RCA: Medium caliber co dominant vessel. There is a long stented segment in the proximal to mid PDA. Right after the stented area, there is a tapering narrowing from 60-70%. The artery appears to be small caliber in this area. This lesion appears to be chronic with no significant change. Ramus: This is a high obtuse marginal branch. Mild diffuse disease is noted in this vessel. No significant stenotic lesions A&P Assessment and plan (1) Chest pain: Patient is here for recurrent chest pains. He had a stress test with subtle reversibility in 08/2019. Troponin with no delta change. EKG showing sinus rhythm with occasional PVC's. Possible old inferior and anterior OK with no acute ST-T wave changes when compared to old EKG. -Clinically he is not overtly fluid overloaded and admits to medication, fluid and dietary compliance. -I think we will have to do another coronary angiogram on him given his recurrent ER visits. This was discussed with Dr. Bejarano and plan is to proceed with [facility] later this afternoon. -continue current medications. -Will plan to uptitrate imdur Status: Acute Qualifiers: Chest pain type: unspecified Qualified Code(s): R07.9 - Chest pain, unspecified (2) Atherosclerotic heart disease of [place] coronary artery with other forms of angina pectoris: Status: Acute (3) Benign essential hypertension with target blood pressure below 140/90: Status: Acute (4) Chronic kidney disease: Status: Acute Qualifiers: Chronic kidney disease stage: stage 3 (moderate) Qualified Code(s): N18.3 - Chronic kidney disease, stage 3 (moderate) (5) Diabetes: Status: Acute Qualifiers: Diabetes mellitus complication status: with hyperglycemia 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 Please feel free to call with questions or concerns. Coding Level of Care Code Acute Audio Visual Facilities Engineer for [facility] Fwd Exam Comprehensive Diagnoses Chest pain R07.9 Chest pain type: unspecified Atherosclerotic heart disease of [place] coronary 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 Benign essential hypertension with target blood pressure below 140/90 I10 Chronic kidney disease N18.3 Chronic kidney disease stage: stage 3 (moderate) Diabetes E11.65 Diabetes mellitus complication status: with hyperglycemia Diabetes mellitus terminal gauger supervisor insulin use: without intermediate use Diabetes mellitus type: type 2
--- NOTE | 2019-12-02 00:41 | USCV_ITS ---
Rei Queen Age: 49 Gender: M : 1970 Exam Date: 12/02/2019 13:08 Ordering Phys: Andrew Gonzalez MD Technologist: Tish Maria Exam Location: [facility] [place] Indication: CHEST PAIN PRESYNCOPE BP: / HR: 67 Rhythm: Sinus Technical Quality: Adequate MEASUREMENTS (Male / Female) Normal Values 2D ECHO LV Diastolic Diameter PLAX 4.4 cm 4.2 - 5.9 / 3.9 - 5.3 cm LV Systolic Diameter PLAX 3.4 cm LV Chamber Size 4.1 cm IVS Diastolic Thickness 1.8 cm 0.6 - 1.0 / 0.6 - 0.9 cm IVS Systolic Thickness 1.9 cm LVPW Diastolic Thickness 1.6 cm 0.6 - 1.0 / 0.6 - 0.9 cm LVPW Systolic Thickness 1.6 cm RV Chamber Size 2.8 cm LVOT Diameter 2.0 cm LV Ejection Fraction 2D Teich 47.4 % LV Ejection Fraction MOD 2C 71.7 % LV Ejection Fraction 2C AL 73.3 % LA Diameter 4.4 cm LA Width 0.0 cm LA Height 4.6 cm RA Width 3.9 cm RA Height 4.0 cm Aorta at Sinotubular Diameter 3.1 cm M-MODE LV Diastolic Diameter MM 5.2 cm 4.2 - 5.9 / 3.9 - 5.3 cm LV Systolic Diameter MM 4.0 cm LV Ejection Fraction MM Teich 47.3 % IVS Diastolic Thickness MM 1.4 cm 0.6 - 1.0 / 0.6 - 0.9 cm IVS Systolic Thickness MM 1.4 cm LVPW Diastolic Thickness MM 1.2 cm 0.6 - 1.0 / 0.6 - 0.9 cm LVPW Systolic Thickness MM 1.4 cm RV Diastolic Diameter MM 2.4 cm Aortic Annulus Diameter 4.4 cm LA Ao Ratio MM 1.0 MV E Point Septal Separation 1.5 cm FINDINGS Left Ventricle Mildly dilated left ventricle with diminished ejection fraction of around 47%. Diffuse hypokinesia left ventricle was noted. Right Ventricle Normal right ventricular size and systolic function. Right Atrium Normal right atrial size. Left Atrium Mildly increased left atrial size. Mitral Valve Thickened mitral valve. Aortic Valve No gross abnormalities noted Tricuspid Valve No gross abnormality noted Pulmonic Valve Not visualized well Pericardium No pericardial effusion. Aorta Normal aortic annulus size. CONCLUSIONS Mildly dilated left ventricle with diminished ejection fraction of around 47%. Mild diffuse hypokinesia left ventricle. Mildly increased left atrial size. Mildly thickened aortic and mitral valves. No intracardiac masses or pericardial effusion There is no pericardial effusion. Because of the differences in the technical quality, comparison with the previous study is difficult Dr Karen Choi MD FAC (Electronically Signed) Final Date: 03 December 2019 01:39 S
--- NOTE | 2019-12-02 00:41 | USCV_ITS ---
Rei Queen Age: 49 Gender: M : 1970 Exam Date: 12/02/2019 13:21 Ordering Phys: Andrew Gonzalez MD Technologist: Tish Maria [place]am [place] [facility] [place]ication: CHEST PAIN PRESYNCOPE HISTORY: LEG SWELLING PROCEDURES: The venous duplex Doppler examination of both lower extremities was performed in the standard fashion. The following venous structures were evaluated: common femoral vein, profunda vein, proximal portion of the greater saphenous vein, superficial femoral vein, and the popliteal vein. In addition, the posterior tibial and peroneal trunk were evaluated. Serial compression, augmentation maneuvers, and spectral Doppler flow evaluation were performed. FINDINGS: No DVT seen in any vessel examined The veins were found to be easily compressible with spontaneous blood flow. Non pulsatile flow pattern. CONCLUSIONS No evidence of DVT in the above-mentioned identifiable veins. Technically somewhat difficult study Dr Karen Choi MD [facility] (Electronically Signed) Final Date: 03 December 2019 09:14 S
[2019-12-02] MEDS: promethazine 25 mg Tablet PO ×3 (02:18→21:23)
[2019-12-02] MEDS: magnesium sulfate premix 2 GM/50 ML PIGGYBACK IV (02:26)
[2019-12-02] MEDS: enoxaparin 40 mg/0.4 mL Syringe SUBCUT (02:30)
[2019-12-02] MEDS: sodium chloride 0.9% 1,000 ML 50 ML IV ×4 (02:31→13:15)
[2019-12-02 04:07] LABS: Basophils # 0.1 10^3/uL (0.0-0.1); Basophils % 0.9 %; Eosinophils # 0.2 10^3/uL (0.0-0.8); Eosinophils % 3.1 %; Hematocrit 34.1 % (42.0-52.0); Lymphocytes # 2.2 10^3/uL (0.8-4.8); Lymphocytes % 28.2 %; Mean Corpuscular HGB Conc 32.3 g/dL (30.0-36.0); Mean Corpuscular Hemoglobin 28.5 pg (28.0-34.0); Mean Corpuscular Volume 88.3 fL (80-94); Mean Platelet Volume 9.5 fL (7.4-10.4); Monocytes # 0.6 10^3/uL (0.2-0.9); Monocytes % 8.2 %; Neutrophils # 4.63 10^3/uL (1.8-7.7); Neutrophils % 59.3 %; Nucleated Red Blood Cells % 0 %; Platelet Count 257 10^3/cmm (130-400); Red Blood Count 3.86 10^6/uL (4.1-5.3); Red Cell Distribution Width 15.2 % (12.1-15.1); White Blood Count 7.8 10^3/uL (4.0-10.0)
--- NOTE | 2019-12-02 04:24 | PC.NURSE ---
PT ARRIVED TO ROOM 102. PT AMBULATED TO BED. PT EDUCATED THAT THEY ARE NPO AT THIS TIME. BP 138/73, HR 79, RR 16, SPO2 97%. PT RATES CP AT 3/10. TECHNICIAN HELPER INSTRUMENT NURSE TO GIVE PRN PAIN MEDS.
[2019-12-02 04:33] LABS: Alanine Aminotransferase 21 U/L (0-41); Albumin Level 3.5 g/dL (3.5-5.2); Alkaline Phosphatase 137 IU/L (40-130); Anion Gap 11.4 (5-19); Aspartate Amino Transferase 20 U/L (0-40); Blood Urea Nitrogen 14 mg/dL (6-20); Carbon Dioxide 27 mmol/L (22-29); Chloride 106 mmol/L (98-107); Globulin 2.8 g/dL (1.3-4.6); Glomerular Filtration Rate 58.2 mL/min (90-130); Glucose 113 mg/dL (65-115); Osmolality Calculated 289 mOsm/kg (285-295); Potassium 3.4 mmol/L (3.5-5.1); Sodium 141 mmol/L (136-145); Total Bilirubin 0.7 mg/dL (0.15-1.2); Total Protein 6.3 g/dL (6.6-8.7)
[2019-12-02] MEDS: morphine 4 mg/mL SDV 1 mL IVP ×3 (04:35→14:49)
--- NOTE | 2019-12-02 05:25 | PC.NURSE ---
AIRPLANE DESIGNER NURSE GAVE PRN MORPHINE FOR PT CHEST PAIN 07/27. PT DENIES PAIN AT THIS TIME. WILL CONTINUE TO MONITOR.
[2019-12-02 06:52] LABS: Glucose Point of Care 103 mg/dL (70-110)
--- NOTE | 2019-12-02 09:29 | XACV_ITS ---
Exam Room: [facility] Ht: 168 cm Wt: 105 kg BSA: 2.26 m2 Gender: Male : 1970 Any Known Allergies: Other Exam Priority: Routine Procedure(s): Procedure Description: Diagnostic procedure Procedure Description: Left Heart Catheterization Diagnostic Cath Status: Elective Diagnostic Findings Patient with multiple stents previously who has chest pain nearly constantly. He has had many many angiograms. He arrived at the hospital with unrelenting chest pain. Troponins negative and EKG is unchanged. Previous stress testing has been negative. Despite that continues to have chest pain. Angiography recommended. Patient does not have a good pulse in the right radial artery. I was able to enter the artery with a needle on several occasions but was never able to feed a wire. The procedure was then completed through the right common femoral artery. There is a large amount of scar tissue there which made placement of the sheath very difficult. Coronary angiography reveals right coronary artery dominance. The left main coronary artery is normal. There is a rather large AV groove circumflex branch which ends is a small marginal. This branch contains mild diffuse disease proximally. There is also a very high marginal branch which could also be considered a second ramus intermedius branch. This branch is stented in the midportion. The stent is widely patent. There is a second ramus, larger than the first which is normal. The LAD contains a stent in the midportion which is widely patent. The remainder the LAD is essentially normal. There is mild to moderate disease in a diagonal branch. The right coronary artery is the dominant vessel. There are stents in the proximal and midportion. The stents are patent. There is mild diffuse disease distally. There also appears to be a stent in the posterior descending artery which is patent. Conclusions Continued unrelenting chest pain with multiple previous stent placements in all 3 vessels all of which are patent. No left ventriculogram done secondary to renal insufficiency. Interventional RX Recommendation: none Diagnostic RX Recommendation: none Clinical Evaluation EBL: 5mL-10mL Procedural Details Procedure Consent Obtained. Admit Source: In Patient. Pre-Procedure Time Out. Identified patient by full name and date of as verbalized by the patient/guarantor. Does the consent match the physician's order: Yes. Accurate & Complete Informed Consent: Yes. Inpatient/Outpatient History & Physical on Chart: Yes. If H&P is completed, is and addenduem needed: N/A; If yes, is the addendum complete: N/A. Visualize and Verify Site with Patient/Guarantor: N/A. Relevant Radiology Images available: N/A. Pre-op teaching completed and patient verbalized understanding. The risks, benefits, and alternatives of sedation and/or procedure were discussed by physician. The patient agrees to continue. Procedure started. Correct patient, site and procedure confirmed by cath team. PERRLA. Strong, equal hand grocery clerk stocking bilaterally. Lungs clear x 5 lobes. Left chest chase cath. Oxygen started at 2liters/min via nasal canula. bilateral groins was prepped with chloroprep then draped in the usual sterile fashion. right radial was prepped with chloroprep then draped in the usual sterile fashion. Physician notified. Baseline sample Acquired. HR: 68 BPM. Physician arrived. Physician scrubbed in. Immediate Pre-Procedure Time Out. Correct Patient: Yes; Correct Procedure: Yes; Correct Site: Yes; Correct Patient Position: Yes; Correct Supplies: Yes; Dried Flammable Prep: Yes; Blood Products Available: N/A;. An attempt to gain access to the right radial artery was unsuccessful. Manual pressure was held as needed to stop the bleeding. Lidocaine 1% infiltrated to the right groin. Arterial access obtained with micropuncture set. dilater went in. dialater out. Sheath upsized to a 6 Fr. A 5 icelandic JL4 catheter in over wire. Multiple views taken of left coronary artery. Catheter out. A 5 icelandic JR4 catheter in over wire. Multiple views taken of right coronary artery. Catheter out. Sheath(s) sutured into position with 2-0 silk and sterile 4x4's and Op-site applied over the site. No oozing or signs and symptoms of hematoma noted. Arterial sheath flushed and connected to tranducer and pressure bag with heparinized saline. Post Procedure: Pulses reassessed and unchanged. PERRLA. Strong, equal hand grocery clerk stocking bilaterally. No VTE prophylaxis required. Total IV fluids: 50 mL. Contrast type used: Omnipaque 300 mgI/mL, 500 mL bottle. Contrast Material : Omnipaque 84 ml. A Suture was successful obtaining hemostatsis at the Right Femoral artery insertion site. Medication's Wasted: Lidocaine 1% = 10 mL. Medication's Wasted: Heparin = 4000 units. Medication's Wasted: Other = versed 1 mg. Medication's Wasted: Other = fentanyl 50 mg. Complications: none. Estimated blood loss: 5mL-10mL. Procedure completed. [facility] Clinical Fraility Score: 4: Vulnerable. Track Oiler Indications: Stable Known CAD. Chest Pain Symptom Assessment: Non-anginal Chest Pain. Cardiovascular Instability: No,. Post-op diagnosis: chest pain. Patient transferred by bed to 1st floor. Vital chart was stopped. Site: Right Femoral artery Sheath Size: 5 Fr Hemostasis Method: Suture Hemostasis Success: Successful Procedure Medications Start: 4:19 PM Stop: 4:19 PM Medication: Solu-Medrol (methylprednisolone) Amount: 125 mg Route: I.V. Start: 4:22 PM Stop: 4:22 PM Medication: Versed Amount: 1 mg Route: I.V. Start: 4:22 PM Stop: 4:22 PM Medication: Fentanyl Amount: 50 mcg Route: I.V. I, the attending physician, have reviewed and verified all procedure medications. Yes, all medications given per verbal order History/Risk Factors Hypertension: Yes Dyslipidemia: Yes Diabetic Therapy: Insulin Peripheral Arterial Disease (PAD): No Myocardial Infarction (WA): Yes Obesity: Yes Renal Disease: Yes Tobacco Use: Never Prior Interventions PCI: Yes CABG: No Valve Surgery: No Date of PCI: 07/26/2016 Report Signatures Finalized by:Dr. Vinayak Bejarano MD on 12/02/2019 5:19:25 PM
[2019-12-02] MEDS: levothyroxine 88 mcg Tablet PO (09:34)
[2019-12-02] MEDS: metoprolol tartrate 50 mg Tablet PO ×2 (09:34→18:37)
[2019-12-02] MEDS: atorvastatin 40 mg Tablet PO (09:35)
[2019-12-02] MEDS: citalopram 20 mg Tablet PO (09:35)
[2019-12-02] MEDS: clopidogrel 75 mg Tablet PO (09:35)
[2019-12-02] MEDS: isosorbide mononitrate ER 30 mg Tablet PO ×2 (09:35→18:37)
[2019-12-02] MEDS: aspirin 81 mg EC Tablet PO ×2 (09:35→18:37)
--- NOTE | 2019-12-02 09:36 | PC.CHAP ---
Pastoral Care Encounter/Spiritual Assessment Type of Contact [] Declined advertising designer visit [] Patient/Family/Request visit [] Outpatient visit [] Follow-up visit [] Physician referral [] Code/Alert [x] Routine visit [] Staff referral [] Actively dying [] Patient sleeping [] Family support [] [] Out of room [] Palliative care [] [] Receiving care in room [] Pre-surgical visit [] Trauma [] Long length of stay [] ICU visit [] Other: Relational/Emotional Strength [] Patient feels connected with others/family/visitors/staff [] Distress [] Loneliness/isolation [] Abandonment Spirituality of Patient [] Person of Shannon [] Attends Spiritism of their Shannon [] Believes in Prayer [] Reads Bible or Jehovah'S Witness materials [] There are Spiritual issues to be addressed Back End Web Developer Interventions [x] Prayer [x] Active listening [x] Non-anxious presence [x] Spiritual/emotional support [] Crisis/trauma care [] Spiritual counseling [] Bereavement support [] Provided bereavement packet [] Provided Bible/devotional materials [] Provided toy/stuffed animal, coloring book to patient or family member [] Provided Communion [] Anointing/[place] [] Salvation [x] Completed spiritual assessment [] Other: Impact on Illness or Injury [] Angry [] Fearful [] Anxious [] Often cries [] Exhaustion [] Unable to work [] Unable to attend yarsani [] Unable to walk/stand [] Unable to read [] Unable to drive [] Unable to eat/drink [] Unable to sleep [] Unable to be with family [] Patient intubated [] Other: Summary Patient resting Time spent with patient 5 min
[2019-12-02 10:03] LABS: Magnesium 2.8 mg/dL (1.7-2.3); NT Pro B Type Natriuretic Pept 1150 pg/mL (0-125)
[2019-12-02 11:52] LABS: Glucose Point of Care 161 mg/dL (70-110)
--- NOTE | 2019-12-02 12:09 | PM.PN ---
Subjective Subjective: Interval history: Chart reviewed, plan for coronary angiogram this afternoon. Patient known to me from previous encounter, resting in bed with no complaints of having episode of chest pain currently and is requesting some pain medication as well as some antiemetics due to nausea. Medications: Reviewed: Yes Medication Review Details: Active Medications Generic Name Dose Route Start Last Admin Trade Name Freq PRN Reason Stop Dose Admin Aspirin 81 mg 12/02/19 09:00 12/02/19 09:35 Aspirin Ec PO 81 mg BID RANDY Administration Atorvastatin Calci um 40 mg 12/02/19 09:00 12/02/19 09:35 Lipitor PO 40 mg DAILY RANDY Administration Citalopram Hydrobr omide 20 mg 12/02/19 09:00 12/02/19 09:35 Celexa PO 20 mg DAILY RANDY Administration Clopidogrel Bisulf ate 75 mg 12/02/19 09:00 12/02/19 09:35 Plavix PO 75 mg DAILY RANDY Administration Dextrose 25 ml 12/02/19 00:41 D50w IVP ONCE PRN hypoglycemia prot ocol Protocol Dextrose 50 ml 12/02/19 00:41 D50w IVP PRN PRN hypoglycemia prot ocol Protocol Enoxaparin Sodium 40 mg 12/02/19 01:00 12/02/19 02:30 Lovenox SUBCUT 40 mg Q24H RANDY Administration Glucagon 1 mg 12/02/19 00:41 Glucagen IM ONCE PRN Adult Acute Hypog lycemia Prot. Protocol Sodium Chloride 1,000 mls @ 50 ml s/hr 12/01/19 16:45 12/02/19 02:31 Sodium Chloride 0.9% IV 50 mls/hr .Q20H RANDY Administration Dextrose 500 mls @ 100 mls /hr 12/02/19 00:41 D5w IV ONCE PRN Adult Acute Hypog lycemia Prot Protocol Sodium Chloride 1,000 mls @ 50 ml s/hr 12/02/19 00:41 12/02/19 02:33 Sodium Chloride 0.9% IV 50 mls/hr .Q20H RANDY Administration Sodium Chloride 1,000 mls @ 50 ml s/hr 12/02/19 09:28 12/02/19 11:04 Sodium Chloride 0.9% IV 12/03/19 05:27 50 mls/hr .Q20H ONE Administration Insulin Aspart 0 unit 12/02/19 08:00 12/02/19 07:54 Novolog SUBCUT Not Given WM&BEDTIME [facility] Protocol Isosorbide Mononit rate 30 mg 12/02/19 09:00 12/02/19 09:35 Imdur PO 30 mg BID RANDY Administration Levothyroxine Sodi um 88 mcg 12/02/19 09:00 12/02/19 09:34 Synthroid PO 88 mcg DAILY [facility] Administration Metoprolol Tartrat e 50 mg 12/02/19 09:00 12/02/19 09:34 Lopressor PO 50 mg BID RANDY Administration Morphine Sulfate 4 mg 12/02/19 00:41 12/02/19 08:48 Morphine IVP 4 mg Q4H PRN Administration SEVERE PAIN Ondansetron HCl 4 mg 12/02/19 00:41 Zofran IVP Q6H PRN NAUSEA AND VOMITI NG Promethazine HCl 25 mg 12/02/19 00:41 12/02/19 02:18 Phenergan PO 25 mg Q6H PRN Administration Nausea And Vomiti ng Sulfa (Sulfonamide Antibiotics) Allergy (Severe, Verified 11/21/19 13:51) ALGY-Difficulty Breathing codeine Allergy (Verified 11/21/19 13:51) ALGY-Anaphylaxis Iodinated Contrast Media Allergy (Verified 11/21/19 13:51) ALGY-Difficulty Breathing iodine Allergy (Verified 11/21/19 13:51) ALGY-Difficulty Breathing ketorolac Allergy (Verified 11/21/19 13:51) ADR-Nausea metoclopramide [From Reglan] Allergy (Verified 11/21/19 13:51) ALGY-Difficulty Breathing nalbuphine [From Nubain] Allergy (Verified 11/21/19 13:51) ADR-Diarrhea naproxen [From Naprosyn] Allergy (Verified 11/21/19 13:51) ADR-Vomiting ondansetron [From Zofran] Allergy (Verified 11/21/19 13:51) ADR-Abdominal Pain prochlorperazine [From Compazine] Allergy (Verified 07/28/19 10:06) ADR-Irritable ranolazine [From Ranexa] Allergy (Verified 07/28/19 10:06) ALGY-Difficulty Swallowing Vitals/I&O/Wt Last Vital Signs Temp 97.6 F 12/02/19 11:13 Pulse 69 12/02/19 11:13 Resp 16 12/02/19 11:13 BP 132/74 12/02/19 11:13 Pulse Ox 93 12/02/19 11:13 12/01/19 12/02/19 12/02/19 22:59 06:59 14:59 Intake Total 186.667 / 186.667 120 / 120 Output Total 400 / 400 Balance -213.333 / -213.333 120 / 120 Weight last 48 hrs Weight 105.551 kg Weight 102.965 kg Physical Exam Const: COMMON NORMALS: no acute distress and patient oriented x3 GENERAL APPEARANCE: cooperative and comfortable NUTRITIONAL APPEARANCE: obese morbidly obese ORIENTATION/CONSCIOUSNESS: Yes awake HENMT: COMMON NORMALS: normocephalic, atraumatic, hearing grossly normal bilaterally and moist oral mucous membranes HEAD & SCALP: normocephalic and atraumatic Eye: COMMON NORMALS: Equal, round and reactive pupils present, EOMs intact bilaterally and conjunctivae normal CONJUNCTIVA: Yes conjunctivae normal PUPIL: Yes Equal, round and reactive pupils present Neck/C-Spine: COMMON NORMALS: full ROM GENERAL: Yes normal visual inspection and Yes trachea midline Resp: COMMON NORMALS: normal respiratory effort, No retractions, No use of accessory muscles and clear to auscultation bilaterally EFFORT & INSPECTION: Yes able to speak in complete sentences, Yes symmetric chest movement and No tachypneic AUSCULTATION: clear to auscultation bilaterally Cardio: COMMON NORMALS: regular rate, regular rhythm, S1 normal heart sound present, S2 normal heart sound present and No murmurs present (Cardio) RATE: regular rate RHYTHM: regular rhythm HEART SOUNDS: S1 normal heart sound present and S2 normal heart sound present GI: COMMON NORMALS: Normal to inspection, nondistended, normoactive bowel sounds present, Soft to palpation and non-tender INSPECTION: Yes central obesity PALPATION: Yes Soft to palpation Extremity: COMMON NORMALS: normal to inspection, full ROM and no clubbing, cyanosis or edema; negative for no pedal edema Neuro: COMMON NORMALS: patient oriented x3, moves all extremities, no focal motor deficits, no sensory deficits noted and gait normal Psych: COMMON NORMALS: mental status grossly normal, Normal thought process present, cooperative, normal affect and speech normal SPEECH: Yes normal speech THOUGHT PROCESS: Normal thought process present Skin: COMMON NORMALS: no rashes or lesions noted, no jaundice, no petechiae and no mottling GENERAL SKIN EXAM: no rashes or lesions noted Data : 12/02/19 03:30 12/02/19 03:30 A&P Assessment and plan (1) Chest pain: -With multiple prior presentations for the same and multiple coronary angiogram showing patent stents -Given continued chest pain, plan for coronary angiogram this afternoon. Keep n.p.o. -Troponins noted with no significant delta -No acute ischemic changes noted on EKG -Telemetry monitoring -VSS; continue to monitor -Equivocal nuclear stress testing in 08/2019 showing subtle area of ischemia in distribution of RCA -Cardiology evaluation appreciated -continue statin, ASA, Plavix, Imdur, BB -MEETA Status: Acute Qualifiers: Chest pain type: unspecified Qualified Code(s): R07.9 - Chest pain, unspecified (2) Chronic systolic heart failure: -no evidence of acute exacerbation currently -continue diuretics -repeat limited Echo pending -BNP-1150 Status: Chronic (3) Obesity (BMI 30-39.9): -BMI-38 kg/m2 Status: Chronic (4) Atherosclerotic heart disease of [place] coronary artery with other forms of angina pectoris: -hx of CAD with prior stenting of proximal LAD, LCx, RCA Status: Chronic (5) Ischemic cardiomyopathy: Status: Chronic (6) Chronic kidney disease: -baseline Cr appears to be around 1.5 -renally dose meds, avoid nephrotoxins -monitor renal function particularly after cath; on IVF Status: Chronic Qualifiers: Chronic kidney disease stage: stage 3 (moderate) Qualified Code(s): N18.3 - Chronic kidney disease, stage 3 (moderate) (7) Benign essential hypertension with target blood pressure below 140/90: -VSS; continue to monitor -continue oral antihypertensives Status: Chronic Additional A&P Information -Hypothyroidism: continue levothyroxine -Dyslipidemia; on statin -mild hypokalemia; replace K as needed -NIDDM type II; on ISS, accuchecks, hypoglycemia precautions; A1c-7.6 (08/2019) -DVT ppx with Lovenox -Dispo: home -Code status: FULL code Attestations Medical Necessity Statement*: Patient requires hospitalization for continued management of chest pain pending coronary angiogram. Time Spent in Patient Care: 16 - 35 minutes (>than 50% of time spent in counselling and/or direct pt care on unit). Coding Level of Care Code Acute Central Office Supervisor for Radhag Fwd Exam Comprehensive Diagnoses Chest pain R07.9 Chest pain type: unspecified Chronic systolic heart failure I50.22 Obesity (BMI 30-39.9) E66.9 Atherosclerotic heart disease of [place] coronary 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 Ischemic cardiomyopathy I25.5 Chronic kidney disease N18.3 Chronic kidney disease stage: stage 3 (moderate) Benign essential hypertension with target blood pressure below 140/90 I10
[2019-12-02 15:55] LABS: Glucose Point of Care 87 mg/dL (70-110)
[2019-12-02] MEDS: diphenhydrAMINE 50 mg Capsule PO (16:03)
--- NOTE | 2019-12-02 16:10 | PC.NURSE ---
Patient taken to mini lab operator by DARRELL Tobar.
[2019-12-02 18:43] LABS: Glucose Point of Care 110 mg/dL (70-110)
[2019-12-02] MEDS: sodium chloride 0.9% 1,000 ML 100 ML IV (19:00)
--- NOTE | 2019-12-02 20:52 | PC.NURSE ---
Patient complains that right groin site is tender. Dressing c/d/i. No bleeding or hematoma noted. Distal pulses present, skin color and temperature WNL. Patient has been educated on post-cath activity restrictions, care, and bedrest and verbalized understanding. Patient is also complaining of nausea, asking for PRN Zofran and crackers which will be provided.
--- NOTE | 2019-12-02 20:55 | PC.NURSE ---
Patient was placed on 2 L NC due to oxygen saturation dropping into low and mid 80s. Patient is slightly drowsy at the moment, but awakened easily and alert and oriented x4. Other VSS. Will monitor.
[2019-12-02 21:06] LABS: Glucose Point of Care 144 mg/dL (70-110)
[2019-12-02] MEDS: ondansetron 2 mg/ML SDV 2 mL 4 MG IVP (21:10)
--- NOTE | 2019-12-02 21:19 | PC.NURSE ---
Dr. Gonzalez notified of patient having sheath pulled around 181 today. Lovenox 40 mg is due at 0100. Ordered to go ahead and give this dose as it is ordered. Doctor also notified of patient stating that he is allergic to Zofran. Ordered to discontinue Zofran.
[2019-12-03] VITALS (10 sets, daily range): BP systolic 128–140; BP diastolic 68–88; PULSE 79–86; RESP 15–22; TEMP 36.5–37.2; O2SAT 90–95
--- NOTE | 2019-12-03 01:25 | PC.NURSE ---
Before ambulating blood pressure 133/74, heart rate 83, right groin WNL. After ambulating in ch with nurse right groin site WNL, heart rate 88, blood pressure 126/79. Will monitor.
[2019-12-03] MEDS: enoxaparin 40 mg/0.4 mL Syringe SUBCUT (01:37)
--- NOTE | 2019-12-03 01:43 | PC.NURSE ---
Dr. Gonzalez notified of patient asking for something for pain in his right groin and chest. Patient is alert and oriented, but slightly drowsy.
--- NOTE | 2019-12-03 02:25 | ECG_ITS ---
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 Measurements Intervals [place] Rate: 79 P: 24 NH: 189 QRS: 13 QRSD: 102 T: 40 QT: 397 QTc: 457 Interpretive Statements SINUS RHYTHM POSSIBLE ANTERIOR MYOCARDIAL INFARCTION [30 ms Q WAVE IN V3/V4, OR R < 0.2 mV IN V4], PROBABLY OLD Compared to ECG 12/02/2019 05:29:29 Left-axis deviation no longer present Myocardial infarct finding still present Electronically Signed On 12-04-2019 0:07:49 CDT by Karen Choi M.D. [id number]
[2019-12-03] MEDS: acetaminophen 325 mg Tablet 650 MG PO (02:40)
--- NOTE | 2019-12-03 03:37 | PC.NURSE ---
Patient is currently playing a game on his cell phone. Patient is complaining of chest pain. Patient states that it comes and goes. VSS on [address] Gonzalez notified of this and notified that EKG has been taken. Ordered to give [place] 5-325 q6 hr PRN. Patient states that his pain level is 2/10 in chest. When asking what a tolerable level would be he states 1/10.
--- NOTE | 2019-12-03 03:52 | PC.NURSE ---
patient states that he has taken hydrocodone before and does not have an allergy to it
[2019-12-03] MEDS: HYDROcodone-acetaminophen 5-325 mg Tablet 1 TAB PO (04:07)
[2019-12-03 04:46] LABS: Basophils % 0.3 %; Hematocrit 35.8 % (42.0-52.0); Hemoglobin 11.2 g/dL (11.7-16.6); Lymphocytes # 0.8 10^3/uL (0.8-4.8); Lymphocytes % 8.4 %; Mean Corpuscular HGB Conc 31.3 g/dL (30.0-36.0); Mean Corpuscular Hemoglobin 27.9 pg (28.0-34.0); Mean Corpuscular Volume 89.1 fL (80-94); Mean Platelet Volume 9.8 fL (7.4-10.4); Monocytes # 0.1 10^3/uL (0.2-0.9); Monocytes % 0.6 %; Neutrophils # 8.78 10^3/uL (1.8-7.7); Neutrophils % 90.3 %; Nucleated Red Blood Cells % 0 %; Platelet Count 255 10^3/cmm (130-400); Red Blood Count 4.02 10^6/uL (4.1-5.3); White Blood Count 9.7 10^3/uL (4.0-10.0)
--- NOTE | 2019-12-03 04:58 | PC.NURSE ---
Patient was resting with eyes closed. Patient awoken and pain reassessed. Patient states the pain pill helped.
[2019-12-03 05:11] LABS: Anion Gap 16.8 (5-19); Blood Urea Nitrogen 21 mg/dL (6-20); Calcium 7.8 mg/dL (8.5-10.5); Carbon Dioxide 20 mmol/L (22-29); Chloride 102 mmol/L (98-107); Glomerular Filtration Rate 49.3 mL/min (90-130); Glucose 365 mg/dL (65-115); Osmolality Calculated 289 mOsm/kg (285-295); Potassium 4.8 mmol/L (3.5-5.1); Sodium 134 mmol/L (136-145)
[2019-12-03 06:30] LABS: Glucose Point of Care 360 mg/dL (70-110)
--- NOTE | 2019-12-03 08:34 | PM.PN ---
Subjective Subjective: Interval history: He underwent cath yesterday with Dr. Bejarano that showed patent stents. Medications: Reviewed: Yes Medication Review Details: Current Medications Acetaminophen (Tylenol) 650 mg PO Q4H PRN PRN Reason: MILD PAIN OR INCREASE TEMP Last Admin: 12/03/19 02:40 Dose: 650 mg Documented by: Hydrocodone Bitart/Acetaminophen ([place] 5-325 Mg) 1 tab PO QID PRN PRN Reason: MODERATE PAIN Last Admin: 12/03/19 04:07 Dose: 1 tab Documented by: Aspirin (Aspirin Ec) 81 mg PO BID [facility] Last Admin: 12/02/19 18:37 Dose: 81 mg Documented by: Atorvastatin Calcium (Lipitor) 40 mg PO DAILY [facility] Last Admin: 12/02/19 09:35 Dose: 40 mg Documented by: Citalopram Hydrobromide (Celexa) 20 mg PO DAILY [facility] Last Admin: 12/02/19 09:35 Dose: 20 mg Documented by: Clopidogrel Bisulfate (Plavix) 75 mg PO DAILY [facility] Last Admin: 12/02/19 09:35 Dose: 75 mg Documented by: Dextrose (D50w) 25 ml IVP ONCE PRN; Protocol PRN Reason: hypoglycemia protocol Dextrose (D50w) 50 ml IVP PRN PRN; Protocol PRN Reason: hypoglycemia protocol Enoxaparin Sodium (Lovenox) 40 mg SUBCUT Q24H [facility] Last Admin: 12/03/19 01:37 Dose: 40 mg Documented by: Glucagon (Glucagen) 1 mg IM ONCE PRN; Protocol PRN Reason: Adult Acute Hypoglycemia Prot. Dextrose (D5w) 500 mls @ 100 mls/hr IV ONCE PRN; Protocol PRN Reason: Adult Acute Hypoglycemia Prot Sodium Chloride (Sodium Chloride 0.9%) 1,000 mls @ 100 mls/hr IV .Q10H [facility] Last Infusion: 12/03/19 01:25 Dose: 0 mls/hr Documented by: Insulin Aspart (Novolog) 0 unit SUBCUT WM&BEDTIME [facility]; Protocol Last Admin: 12/03/19 07:24 Dose: 12 unit Documented by: Isosorbide Mononitrate (Imdur) 30 mg PO BID [facility] Last Admin: 12/02/19 18:37 Dose: 30 mg Documented by: Levothyroxine Sodium (Synthroid) 88 mcg PO DAILY [facility] Last Admin: 12/02/19 09:34 Dose: 88 mcg Documented by: Metoprolol Tartrate (Lopressor) 50 mg PO BID [facility] Last Admin: 12/02/19 18:37 Dose: 50 mg Documented by: Promethazine HCl (Phenergan) 25 mg PO Q6H PRN PRN Reason: Nausea And Vomiting Last Admin: 12/02/19 21:23 Dose: 25 mg Documented by: Vitals/I&O/Wt Last Vital Signs Temp 98.1 F 12/03/19 07:27 Pulse 79 12/03/19 07:27 Resp 15 12/03/19 07:27 BP 128/77 12/03/19 07:27 Pulse Ox 95 12/03/19 07:27 12/02/19 12/03/19 12/03/19 22:59 06:59 14:59 Intake Total 407.5 / 670.340 7542.667 / 1638.334 Balance 407.5 / 885.534 1661.667 / 1638.334 Weight last 48 hrs Weight 238 lb 8 oz Weight 232 lb 11.2 oz Weight 227 lb Physical Exam Const: COMMON NORMALS: no acute distress, patient oriented x3, alert and well nourished GENERAL APPEARANCE: cooperative, comfortable, well kempt and well developed ORIENTATION/CONSCIOUSNESS: Yes oriented to person, Yes oriented to place and Yes oriented to time HENMT: COMMON NORMALS: normocephalic, atraumatic, hearing grossly normal bilaterally, external ears normal and Normal external nose present HEAD & SCALP: normocephalic and atraumatic FACE & SINUS: face symmetric NOSE: Normal external nose present EXTERNAL EAR: Yes external ears normal Eye: COMMON NORMALS: Equal, round and reactive pupils present, EOMs intact bilaterally and conjunctivae normal CONJUNCTIVA: Yes conjunctivae normal SCLERA: sclerae normal PUPIL: Yes Equal, round and reactive pupils present Neck/C-Spine: COMMON NORMALS: supple and no JVD; negative for No carotid bruits Chest: COMMONS NORMALS: normal inspection of the chest CHEST: Yes Symmetrical chest wall rise and No tenderness Resp: COMMON NORMALS: normal respiratory effort and No use of accessory muscles AUSCULTATION: no crackles, no rales, no rhonchi and no wheezes Cardio: COMMON NORMALS: no JVD, regular rate, regular rhythm, S1 normal heart sound present, S2 normal heart sound present and Peripheral pulses 2+ throughout JUGULAR VENOUS DISTENTION: no JVD PALPATION: normal PMI, no heave, no palpable S3, no palpable S4 and no thrill RATE: regular rate RHYTHM: regular rhythm HEART SOUNDS: S1 normal heart sound present, S2 normal heart sound present, no gallops and no murmurs BRUITS: no carotid bruits PERIPHERAL PULSES: Peripheral pulses 2+ throughout Back/Pelvis: LUMBAR SPINE/LOWER BACK: Yes normal to inspection Extremity: GENERAL: Yes edema (trace bilateral edema. ) Neuro: COMMON NORMALS: patient oriented x3 and no focal motor deficits SENSORIUM/ORIENTATION: Yes alert, Yes oriented to person, Yes oriented to place and Yes oriented to time CRANIAL NERVES: Yes CN normal except as noted Psych: COMMON NORMALS: Normal thought process present APPEARANCE: Yes well kempt MOOD & AFFECT: Yes euthymic mood THOUGHT PROCESS: Normal thought process present THOUGHT CONTENT: Yes Normal thought content present ATTENTION/CONCENTRATION: Yes attention grossly intact MEMORY/COGNITION: Yes memory grossly intact INSIGHT: Good insight present (Psych) JUDGEMENT: Good judgement present (Psych) Data : 12/03/19 04:10 12/03/19 04:10 Other data: Coronary angiogram (12/02/2019) Diagnostic Cath Status: Elective Diagnostic Findings Patient with multiple stents previously who has chest pain nearly constantly. He has had many many angiograms. He arrived at the hospital with unrelenting chest pain. Troponins negative and EKG is unchanged. Previous stress testing has been negative. Despite that continues to have chest pain. Angiography recommended. Patient does not have a good pulse in the right radial artery. I was able to enter the artery with a needle on several occasions but was never able to feed a wire. The procedure was then completed through the right common femoral artery. There is a large amount of scar tissue there which made placement of the sheath very difficult. Coronary angiography reveals right coronary artery dominance. The left main coronary artery is normal. There is a rather large AV groove circumflex branch which ends is a small marginal. This branch contains mild diffuse disease proximally. There is also a very high marginal branch which could also be considered a second ramus intermedius branch. This branch is stented in the midportion. The stent is widely patent. There is a second ramus, larger than the first which is normal. The LAD contains a stent in the midportion which is widely patent. The remainder the LAD is essentially normal. There is mild to moderate disease in a diagonal branch. The right coronary artery is the dominant vessel. There are stents in the proximal and midportion. The stents are patent. There is mild diffuse disease distally. There also appears to be a stent in the posterior descending artery which is patent. Conclusions Continued unrelenting chest pain with multiple previous stent placements in all 3 vessels all of which are patent. No left ventriculogram done secondary to renal insufficiency. A&P Assessment and plan (1) Chest pain: Patient is here for recurrent chest pains. He had a stress test with subtle reversibility in 08/2019. Troponin with no delta change. EKG showing sinus rhythm with occasional PVC's. Possible old inferior and anterior NM with no acute ST-T wave changes when compared to old EKG. -Clinically he is not overtly fluid overloaded and admits to medication, fluid and dietary compliance. -Another coronary angiogram was done via right femoral approach with with Dr. Bejarano. It showed patent stents. -continue current medications. -Will plan to uptitrate imdur to 30 mg am and 45 mg pm. -BP/Hr log x 2 weeks -Follow up with Ms. Mccain in 1 week for site and lab check and follow up with me in 6 weeks. Status: Acute Qualifiers: Chest pain type: unspecified Qualified Code(s): R07.9 - Chest pain, unspecified (2) Atherosclerotic heart disease of [place] coronary artery with other forms of angina pectoris: Status: Chronic (3) Benign essential hypertension with target blood pressure below 140/90: Status: Chronic (4) Chronic kidney disease: Status: Chronic Qualifiers: Chronic kidney disease stage: stage 3 (moderate) Qualified Code(s): N18.3 - Chronic kidney disease, stage 3 (moderate) (5) Diabetes: Status: Acute Qualifiers: Diabetes mellitus type: type 2 Diabetes mellitus custodial insulin use: without custodial use Diabetes mellitus complication status: with hyperglycemia Qualified Code(s): E11.65 - Type 2 diabetes mellitus with hyperglycemia Additional A&P Information Hypokalemia: replaced Chronic mild anemia h/o chronic recurrent chest pains and hospitalizations Thank you for allowing me to participate in patient's care. Please feel free to call with questions or concerns. Attestations Medical Necessity Statement*: stable to be discharged from cardiac standpoint. 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
[2019-12-03] MEDS: levothyroxine 88 mcg Tablet PO (08:54)
[2019-12-03] MEDS: atorvastatin 40 mg Tablet PO (08:56)
[2019-12-03] MEDS: clopidogrel 75 mg Tablet PO (08:56)
[2019-12-03] MEDS: isosorbide mononitrate ER 30 mg Tablet PO (08:56)
[2019-12-03] MEDS: metoprolol tartrate 50 mg Tablet PO (08:56)
[2019-12-03] MEDS: citalopram 20 mg Tablet PO (08:56)
[2019-12-03] MEDS: aspirin 81 mg EC Tablet PO (08:57)
--- NOTE | 2019-12-03 09:50 | PC.NURSE ---
Dr. Lopez at bedside. Plan to discharge patient home today. Physician to coordinate care with Dr. Brown.
[2019-12-03] MEDS: FUROsemide 40 mg Tablet PO (10:15)
--- NOTE | 2019-12-03 10:26 | P.DS_ITS ---
Discharge Providers Date of Admission: 12/02/19 11:56 Date of Discharge: December 03, 2019 Attending Provider at Admission: Andrew Gonzalez Attending Provider at Discharge: Jing Brown MD Consults: Cardiology: Dr. Lopez and Dr. Bejarano Primary Care Provider: Kp Montanez DO Diagnoses at Discharge Discharge Diagnosis (1) Chest pain: Status: Acute Problem details: -With multiple prior presentations for the same and multiple coronary angiogram showing patent stents -Given continued chest pain, s/p coronary angiogram showing patent stents. Pre- medicated with steroids and benadryl due to contrast allergy -Troponins noted with no significant delta -No acute ischemic changes noted on EKG -Telemetry monitoring -VSS; continue to monitor -Equivocal nuclear stress testing in 08/2019 showing subtle area of ischemia in distribution of RCA -Cardiology evaluation appreciated -continue statin, ASA, Plavix, Imdur, BB; increase dose of imdur -MEETA Qualifiers: Chest pain type: unspecified Qualified Code(s): R07.9 - Chest pain, unspecified (2) Atherosclerotic heart disease of [place] coronary artery with other forms of angina pectoris: Status: Chronic Problem details: -hx of CAD with prior stenting of proximal LAD, LCx, RCA (3) Benign essential hypertension with target blood pressure below 140/90: Status: Chronic Problem details: -VSS; continue to monitor -continue oral antihypertensives (4) Chronic kidney disease: Status: Chronic Problem details: -baseline Cr appears to be around 1.5 -renally dose meds, avoid nephrotoxins -stable renal function particularly after cath; received IVF Qualifiers: Chronic kidney disease stage: stage 3 (moderate) Qualified Code(s): N18.3 - Chronic kidney disease, stage 3 (moderate) (5) Diabetes: Status: Chronic Problem details: -on ISS, accuchecks, hypoglycemia precautions; A1c-7.6 (08/2019) Qualifiers: Diabetes mellitus complication status: with hyperglycemia Diabetes mellitus 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 helper termite insulin use: without 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 helper termite use Diabetes mellitus type: type 2 Qualified Code(s): E11.65 - Type 2 diabetes mellitus with hyperglycemia (6) Chronic systolic heart failure: Status: Chronic Problem details: -no evidence of acute exacerbation currently -continue diuretics -repeat limited Echo: EF=47%, diffuse LV hypokinesis, mildly increased LA size -BNP-1150 Other Information Additional DC diagnoses/information: -Morbid obesity: BMI-39 kg/m2 -Hypothyroidism: continue levothyroxine -Dyslipidemia; on statin -mild hypokalemia; replace K as needed; resolved Reason for Visit Reason for Visit: [facility] Hospital Course Hospital Course: Patient was admitted to the cardiac stepdown unit and placed on telemetry monitoring. Due to the frequency of his visits for similar complaints of chest pain, underlying CAD history with prior stenting, cardiology was consulted and recommended coronary angiogram for further evaluation. Troponins were trended with no significant delta noted and no acute ischemic changes noted on telemetry or serial EKGs. Right femoral approach was used for angiogram due to difficulty with access with the right radial artery. Angiogram showed widely patent stents. Patient did continue to complain of some chest pain during his hospital stay which was managed accordingly and dose of Imdur has been increased to further optimize medical management; he is chest pain free currently. He did require some IV fluid hydration secondary to need for cath. He was premedicated with steroids and diphenhydramine prior to contrast administration due to noted allergy. Renal function is at baseline. Lasix was held until earlier today and can be continued on discharge. The rest of his medications can be continued as is and as reflected below. He will follow-up with cardiology in 1 week for cath site check and labs and with Dr. Lopez in 6 weeks. He is to follow-up with his primary care provider within 1 week and is advised to seek medical attention immediately should any of his symptoms recur. Discharge Summary: -Patient to follow up with primary care physician within 1 week -Patient to follow up with Amalia Mccain NP in 1 week for cath site check and labs -Patient to follow up with Dr. Lopez in 6 weeks Physical Exam Const: COMMON NORMALS: no acute distress and patient oriented x3 GENERAL APPEARANCE: cooperative and comfortable NUTRITIONAL APPEARANCE: obese morbidly obese ORIENTATION/CONSCIOUSNESS: Yes awake HENMT: COMMON NORMALS: normocephalic, atraumatic, hearing grossly normal bilaterally and moist oral mucous membranes HEAD & SCALP: normocephalic and atraumatic Eye: COMMON NORMALS: Equal, round and reactive pupils present, EOMs intact bilaterally and conjunctivae normal CONJUNCTIVA: Yes conjunctivae normal PUPIL: Yes Equal, round and reactive pupils present Neck/C-Spine: COMMON NORMALS: full ROM GENERAL: Yes normal visual inspection and Yes trachea midline Resp: COMMON NORMALS: normal respiratory effort, No retractions, No use of a ccessory muscles and clear to auscultation bilaterally EFFORT & INSPECTION: Yes able to speak in complete sentences, Yes symmetric chest movement and No tachypneic AUSCULTATION: clear to auscultation bilaterally Cardio: COMMON NORMALS: regular rate, regular rhythm, S1 normal heart sound present, S2 normal heart sound present and No murmurs present (Cardio) RATE: regular rate RHYTHM: regular rhythm HEART SOUNDS: S1 normal heart sound present and S2 normal heart sound present GI: COMMON NORMALS: Normal to inspection, nondistended, normoactive bowel sounds present, Soft to palpation and non-tender INSPECTION: Yes central obesity PALPATION: Yes Soft to palpation : OTHER: -R femoral cath site: clean/dry dressing in place, pulses palpable, no apparent hematoma Extremity: COMMON NORMALS: normal to inspection, full ROM and no clubbing, cyanosis or edema; negative for no pedal edema Neuro: COMMON NORMALS: patient oriented x3, moves all extremities, no focal motor deficits, no sensory deficits noted and gait normal Psych: COMMON NORMALS: mental status grossly normal, Normal thought process present, cooperative, normal affect and speech normal SPEECH: Yes normal speech THOUGHT PROCESS: Normal thought process present Skin: COMMON NORMALS: no rashes or lesions noted, no jaundice, no petechiae and no mottling GENERAL SKIN EXAM: no rashes or lesions noted Discharge Data Data Completed and Pending: Completed Studies During Hospitalization Category Date Time Status CT head wo con* 7 0450 Stat Cat Scan 12/01/19 17:58 Completed 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1 L Eos # (Auto) 0.0 Baso # (Auto) 0.0 Nucleated RBC % (a uto) 0 Nucleated RBCs # 0.0 Sodium 134 L Potassium 4.8 Chloride 102 Carbon Dioxide 20 L Anion Gap 16.8 BUN 21 H Creatinine 1.5 H GFR Calculation 49.3 L Glucose 365 H POC Glucose 360 Calculated Osmolal ity 289 Calcium 7.8 L 12/02/19 12/02/19 12/02/19 20:14 18:27 15:23 WBC RBC Hgb Hct MCV MCH MCHC RDW Plt Count MPV Neut % (Auto) Lymph % (Auto) [place] % (Auto) Eos % (Auto) Baso % (Auto) Neut # (Auto) Lymph # (Auto) [place] # (Auto) Eos # (Auto) Baso # (Auto) Nucleated RBC % (a uto) Nucleated RBCs # Sodium Potassium Chloride Carbon Dioxide Anion Gap BUN Creatinine GFR Calculation Glucose POC Glucose 144 110 87 Calculated Osmolal ity Calcium 12/02/19 11:06 WBC RBC Hgb Hct MCV MCH MCHC RDW Plt Count MPV Neut % (Auto) Lymph % (Auto) [place] % (Auto) Eos % (Auto) Baso % (Auto) Neut # (Auto) Lymph # (Auto) [place] # (Auto) Eos # (Auto) Baso # (Auto) Nucleated RBC % (a uto) Nucleated RBCs # Sodium Potassium Chloride Carbon Dioxide Anion Gap BUN Creatinine GFR Calculation Glucose POC Glucose 161 Calculated Osmolal ity Calcium Vitals: Last Vital Signs Temp 98.1 F 12/03/19 07:27 Pulse 79 12/03/19 07:27 Resp 15 12/03/19 07:27 BP 128/77 12/03/19 07:27 Pulse Ox 95 12/03/19 07:27 Discharge Plan Discharge Patient Disposition: Home, Self-Care Condition: Stable Prescriptions: Continued (DME) diabetic shoes Qty: 1 RF: 0 promethazine 25 mg tablet 25 mg PO Q6H PRN (Reason: Nausea And Vomiting) RF: 0 multivitamin [Daily Multi-Vitamin] Tablet 1 tab PO QAM RF: 0 citalopram 10 mg tablet 20 mg PO DAILY RF: 0 methocarbamol 750 mg tablet 750 mg PO TID PRN (Reason: Muscle Spasm) RF: 0 glipizide 10 mg tablet 10 mg PO DAILY RF: 0 levothyroxine 88 mcg capsule 88 mcg PO DAILY RF: 0 metoprolol tartrate 50 mg tablet 50 mg PO BID RF: 0 nitroglycerin [Nitrostat] 0.4 mg tablet, sublingual 0.4 mg SUBLINGUAL Q5M PRN (Reason: Chest Pain) RF: 0 metformin 500 mg tablet 500 mg PO BID RF: 0 Trulicity 0.75 mg/0.5 mL pen injector 0.75 mg SUBCUT Q7D RF: 0 amlodipine 5 mg tablet 5 mg PO DAILY RF: 0 aspirin 81 mg tablet,delayed release (DR/EC) 81 mg PO BID RF: 0 hydralazine 25 mg tablet 25 mg PO BID RF: 0 mupirocin 2 % ointment 1 applic TOPICAL TID Qty: 15 RF: 0 clopidogrel 75 mg tablet 75 mg PO DAILY Qty: 90 RF: 3 atorvastatin 40 mg tablet 40 mg PO DAILY Qty: 30 RF: 5 Changed isosorbide mononitrate 30 mg tablet extended release 24 hr See Rx Instructions .ROUTE .COMPLEX Qty: 60 RF: 0 No Action furosemide [Lasix] 40 mg tablet 40 mg PO QAM RF: 0 Discharge Orders: Discharge Order (Routine); Ordered 12/03/19 Ordered By: Jing Brown Referrals: Amalia Mccain FNP [Nurse Practitioner] - 1 week (You have a post procedure site check and labs with MELISSA Toledo at [facility] on December 09 at 9:15am) Tory Lopez MD [Physician] - 6 Weeks (You have a cardiology followup with Dr. Lopez at [facility] on January 13 at 10:45am ) Kp Montanez DO [Primary Care Provider] - 4-7 days (You have a post hospital discharge follow up with Dr. Montanez at [facility] on December 13 at 10:45am) Discharge Diet: Cardiac and Diabetic Discharge Activity: Increase activity as tolerated and Limit activity as instructed Discharge Attestations Time Spent in Discharge Care*: greater than 30 min Specific Discharge Activities: Specific discharge activities: educating patient, discussing with pcp/other providers, discussing with caser shoe parts/social workers/dc planners, documenting/other paperwork and evaluating patient/reviewing data Status at Discharge: Cognitive status at discharge: cognitively intact , Behavioral status at discharge: cooperative , Functional status at discharge: independent ambulation Overall status at discharge: patient is progressing back to baseline Quality Metrics Clinical Quality Measures During this hospital stay, did patient experience: None Coding Level of Care Code Acute Key Bed Installer for [facility] Fwd Exam Comprehensive Diagnoses Chest pain R07.9 Chest pain type: unspecified Atherosclerotic heart disease of [place] coronary 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 Benign essential hypertension with target blood pressure below 140/90 I10 Chronic kidney disease N18.3 Chronic kidney disease stage: stage 3 (moderate) Diabetes E11.65 Diabetes mellitus complication status: with hyperglycemia Diabetes mellitus 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 helper termite insulin use: without 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 helper termite use Diabetes mellitus type: type 2 Chronic systolic heart failure I50.22
[2019-12-03 11:32] LABS: Glucose Point of Care 374 mg/dL (70-110)
--- NOTE | 2019-12-03 13:02 | PC.NURSE ---
Discharge instructions given per the physician's orders. Patient verbalized understanding and did not have any questions regarding medication change or activity restrictions. Port de-accessed. contacted about transport.
--- NOTE | 2019-12-03 14:52 | PC.NURSE ---
Patient's sweatpants located in laundry. Patient's contacted. Chantale will return to hospital to pick them up.
== END 2019-12-03 13:50 | disposition home or self-care (01) | DRG 287 ==
LOC: ER 16:54 → CSU 22:09
PROVIDERS: Emergency Medicine; Internal Medicine Cardiovascular Disease; Admitting Provider Internal Medicine; PCP Internal Medicine; Visit Provider Family Medicine
PROC: 4A023N7 Measurement of Cardiac Sampling and Pressure, Left Heart, Percutaneous Approach (ICD-10-PCS; principal; 2019-12-02 16:30)
DX: I25.708 Atherosclerosis of coronary artery bypass graft(s), unspecified, with other forms of angina pectoris (principal); I13.0 Hypertensive heart and chronic kidney disease with heart failure and stage 1 through stage 4 chronic kidney disease, or unspecified chronic kidney disease; I50.22 Chronic systolic (congestive) heart failure; N18.3 Chronic kidney disease, stage 3 (moderate); E11.22 Type 2 diabetes mellitus with diabetic chronic kidney disease; E03.9 Hypothyroidism, unspecified; E78.5 Hyperlipidemia, unspecified; E87.6 Hypokalemia; E66.01 Morbid (severe) obesity due to excess calories; Z68.39 Body mass index [BMI] 39.0-39.9, adult; E11.65 Type 2 diabetes mellitus with hyperglycemia; Z79.82 Long term (current) use of aspirin; Z79.02 Long term (current) use of antithrombotics/antiplatelets; Z79.84 Long term (current) use of oral hypoglycemic drugs; Z86.74 Personal history of sudden cardiac arrest; Z86.718 Personal history of other venous thrombosis and embolism; M21.372 Foot drop, left foot; M47.9 Spondylosis, unspecified
CPT/HCPCS: 12345; 36415; 36416; 36591; 70450; 71045; 80048; 80053; 81001; 82962; 83735; 83880; 84484; 85025; 85378; 86705; 86706; 86709; 86803; 87340; 87806; 93005; 93308; 93454; 93970; 96372; 96375; 99283; C1769; C1887; C1894; G0378; J1642; J1644; J1650; J1815; J2250; J2270; J2405; J2930; J3010; J3475; J3480; J3490; J7030; Q0163; Q0169; Q9967

== ENCOUNTER 2019-12-22 10:12 | Outpatient (RCR) | payer SELFPAY | END 2020-01-18 23:59 | disposition home or self-care (01) | LOC: CR 10:12 | PROVIDERS: PCP Internal Medicine; Referring Provider Internal Medicine Cardiovascular Disease; Visit Provider Internal Medicine Cardiovascular Disease | DX: I20.8 Other forms of angina pectoris (principal) ==

== ENCOUNTER → 2020-01-07 09:58 | Day surgery (SDC) | payer MEDICARE, MEDICAID, SELFPAY ==
[2020-01-07 10:59] VITALS: BMI 36.8
[2020-01-07 11:58] LABS: Albumin Level 3.7 g/dL (3.5-5.2); Anion Gap 12.1 (5-19); Blood Urea Nitrogen 20 mg/dL (6-20); Calcium 8.9 mg/dL (8.5-10.5); Carbon Dioxide 30 mmol/L (22-29); Chloride 100 mmol/L (98-107); Glomerular Filtration Rate 53.4 mL/min (90-130); Glucose 189 mg/dL (65-115); Phosphorus 2.7 mg/dL (2.5-4.5); Potassium 3.1 mmol/L (3.5-5.1); Sodium 139 mmol/L (136-145)
[2020-01-07 12:15] LABS: Calcium 8.9 mg/dL (8.5-10.5); Parathyroid Hormone 101.5 pg/mL (15-65)
[2020-01-07 12:23] LABS: Creatinine Urine, Random 50 mg/dL (39-259)
[2020-01-07 12:24] LABS: Basophils # 0.1 10^3/uL (0.0-0.1); Eosinophils # 0.2 10^3/uL (0.0-0.8); Eosinophils % 2.7 %; Hematocrit 35.2 % (42.0-52.0); Hemoglobin 11.5 g/dL (11.7-16.6); Lymphocytes # 1.5 10^3/uL (0.8-4.8); Lymphocytes % 18.6 %; Mean Corpuscular HGB Conc 32.7 g/dL (30.0-36.0); Mean Corpuscular Hemoglobin 28.8 pg (28.0-34.0); Mean Corpuscular Volume 88.2 fL (80-94); Mean Platelet Volume 9.8 fL (7.4-10.4); Monocytes # 0.5 10^3/uL (0.2-0.9); Monocytes % 5.6 %; Neutrophils # 5.94 10^3/uL (1.8-7.7); Neutrophils % 71.7 %; Nucleated Red Blood Cells % 0 %; Platelet Count 289 10^3/cmm (130-400); Red Blood Count 3.99 10^6/uL (4.1-5.3); Red Cell Distribution Width 15.3 % (12.1-15.1); White Blood Count 8.3 10^3/uL (4.0-10.0)
[2020-01-07 12:45] LABS: Microalbum Creatinine Ratio Ur 1580 mg/dL (0-20); Microalbumin Random Urine 79 ug/dL (0-20)
== END ==
PROVIDERS: Internal Medicine Nephrology; PCP Internal Medicine; Visit Provider Internal Medicine
DX: Z45.2 Encounter for adjustment and management of vascular access device (principal); Z95.828 Presence of other vascular implants and grafts
CPT/HCPCS: 36591; 80069; 82044; 82310; 83970; 85025; 96523

== ENCOUNTER 2020-01-19 14:07 | Outpatient (RCR) | payer SELFPAY | END 2020-02-17 23:59 | disposition home or self-care (01) | LOC: CR 14:07 | PROVIDERS: PCP Internal Medicine; Referring Provider Internal Medicine Cardiovascular Disease; Visit Provider Internal Medicine Cardiovascular Disease | DX: I20.8 Other forms of angina pectoris (principal) ==

== ENCOUNTER → 2020-01-28 13:55 | Outpatient (BNVA) | payer MEDICARE, MEDICAID, SELFPAY | PROVIDERS: PCP Internal Medicine; Visit Provider Podiatrist Foot & Ankle Surgery | DX: L84 Corns and callosities (principal); M21.272 Flexion deformity, left ankle and toes; I70.202 Unspecified atherosclerosis of native arteries of extremities, left leg | CPT/HCPCS: 73630 ==

== ENCOUNTER 2020-01-28 14:23 | Outpatient (CLI) | payer MEDICARE, MEDICAID, SELFPAY | END 2020-01-28 14:24 | disposition home or self-care (01) | LOC: SPT 14:24 | PROVIDERS: PCP Internal Medicine; Visit Provider Podiatrist Foot & Ankle Surgery | DX: Z46.89 Encounter for fitting and adjustment of other specified devices (principal); L84 Corns and callosities | CPT/HCPCS: 97760; L4361 ==

== ENCOUNTER → 2020-02-01 11:04 | Day surgery (SDC) | payer MEDICARE, MEDICAID, SELFPAY ==
[2020-02-01 11:53] VITALS: BP 103/57; PULSE 75; RESP 18; TEMP 36.3; O2SAT 94
[2020-02-01 12:18] LABS: Estmated Average Glucose 169; Hemoglobin A1C 7.5 % (4.0-6.0)
[2020-02-01 12:22] LABS: Anion Gap 16.2 (5-19); Blood Urea Nitrogen 44 mg/dL (6-20); Calcium 8.5 mg/dL (8.5-10.5); Carbon Dioxide 22 mmol/L (22-29); Chloride 99 mmol/L (98-107); Glomerular Filtration Rate 45.8 mL/min (90-130); Glucose 146 mg/dL (65-115); Osmolality Calculated 275 mOsm/kg (285-295); Potassium 5.2 mmol/L (3.5-5.1); Sodium 132 mmol/L (136-145)
== END ==
PROVIDERS: Internal Medicine Nephrology; PCP Internal Medicine; Visit Provider Internal Medicine
DX: E11.9 Type 2 diabetes mellitus without complications (principal)
CPT/HCPCS: 36591; 80048; 83036; 96368

== ENCOUNTER 2020-02-19 09:49 | Outpatient (RCR) | payer SELFPAY | END 2020-03-19 23:59 | disposition home or self-care (01) | LOC: CR 09:49 | PROVIDERS: PCP Internal Medicine; Referring Provider Internal Medicine Cardiovascular Disease; Visit Provider Internal Medicine Cardiovascular Disease | DX: I20.9 Angina pectoris, unspecified (principal) ==

== ENCOUNTER → 2020-03-03 08:50 | Day surgery (SDC) | payer MEDICARE, MEDICAID, SELFPAY ==
[2020-03-03 09:21] VITALS: BP 114/63; PULSE 73; RESP 18; TEMP 36.4; O2SAT 98; BMI 37.1
== END ==
PROVIDERS: PCP Internal Medicine; Visit Provider Internal Medicine
DX: Z95.828 Presence of other vascular implants and grafts (principal)
CPT/HCPCS: 96368; 96523

== ENCOUNTER 2020-03-12 17:11 | Emergency (ER) | payer MEDICARE, MEDICAID, SELFPAY ==
[2020-03-12] VITALS (7 sets, daily range): BP systolic 101–131; BP diastolic 66–76; PULSE 72–163; RESP 16–18; TEMP 36.3; O2SAT 94–99; BMI 35.5
--- NOTE | 2020-03-12 17:22 | ECG_ITS ---
[facility] Test Date: 2020-03-12 Pat Name: Rei Queen Department: Room: Gender: Male Special Services Agent: : [id number] Requested By: Timo Hart Order Number: [id number] Becky MD: Tory Lopez M.D. Measurements Intervals [place] Rate: 81 P: 4 CT: 187 QRS: -44 QRSD: 92 T: 128 QT: 354 QTc: 412 Interpretive Statements SINUS RHYTHM MARKED LEFT AXIS DEVIATION [QRS AXIS < -30] POSSIBLE ANTERIOR MYOCARDIAL INFARCTION [30 ms Q WAVE IN V3/V4, OR R < 0.2 mV IN V4], OF INDETERMINATE AGE MODERATE T-WAVE ABNORMALITY, CONSIDER LATERAL ISCHEMIA [-0.1+ mV T WAVE IN I/aVL/V5/V6] Compared to ECG 12/03/2019 02:47:22 Left-axis deviation now present T-wave abnormality now present Possible ischemia now present Myocardial infarct finding still present Electronically Signed On 03-12-2020 22:01:42 CDT by Tory Lopez M.D. [email or web address]
--- NOTE | 2020-03-12 17:35 | XRR_ITS ---
PROCEDURE INFORMATION: Exam: XR Chest, 1 View Exam date and time: 03/12/2020 5:37 PM Age: 49 years old Clinical indication: Chest pain; Type not specified TECHNIQUE: Imaging protocol: XR of the chest Views: 1 view. COMPARISON: CR XR chest 1V portable [id number] 12/02/2019 12:14 AM FINDINGS: Tubes, catheters and devices: There is a left subclavian port with tip in the superior vena cava. Lungs: There is unchanged left basilar scarring. The lungs are otherwise clear. No airspace consolidation. Pulmonary vascularity is within normal limits. Pleural space: Unremarkable. No pleural effusion. No pneumothorax. Heart/Mediastinum: The heart is enlarged. Bones/joints: Sternotomy wires and mediastinal surgical clips are present, consistent with previous coronary arterial bypass grafting. XR/XR chest 1V portable [id number] IMPRESSION: Unchanged exam. No active pulmonary disease.
--- NOTE | 2020-03-12 17:58 | W.ED.CHESTPA ---
Documented by User: Timo Mckoy DO 03/14/20 17:39 HPI - Chest Pain General: Chief Complaint: Chest Pain Stated Complaint: flank pain/belly pain/ intestinal pain Time Seen by Provider: 03/12/20 17:49 History of Present Illness: HPI narrative: 49-year-old male presents emergency room with symptoms for the last week of chest pain and abdominal pain he also has some pain in his right flank. He has been seen at the urgent care clinic 3 times for this this week. He was tested for Covid at one trip which was negative. He denies any hematuria he has not really noticed anything that exacerbates or relieves it. He is not noticed that particular types of food make it better or worse at times he has had discomfort to the point where he feels like he cannot eat. He has had one episode of bilious vomiting, he denies any hematemesis or coffee-ground emesis. He has had a few loose stools but denies any luis e or watery diarrhea no hematochezia or melena. He is not had any fever associated with this. The symptoms have generally occurred at rest and have not been exacerbated by exertion. He localizes the pain to the periumbilical area but does not spread or radiated. The chest symptoms are very mild and intermittent most of the lower sternal. MD complaint: chest discomfort Pertinent past history: other (Paracardial effusion) Onset (ago): week(s) (1) Timing of current episode: episodic Prior episodes: Yes Onset: during rest Pain location: left chest Pain radiation: none Severity: moderate Quality: aching Relieving factors: nothing Exacerbating factors: nothing Associated symptoms: Deny abdominal pain, diaphoresis, dyspnea, fever(s), leg edema, nausea, palpitations, sense of impending doom, syncope or vomiting Treatment prior to arrival: none Review of Systems Const: Denies: fever(s) or diaphoresis ENMT: Denies: throat pain, ear or mastoid pain, nasal discharge or nasal congestion Card: Denies: palpitations or syncope Resp: Denies: dyspnea GI: Denies: abdominal pain, nausea or vomiting : Denies: flank pain, dysuria, urinary frequency or urinary urgency Skin/Breast: Denies: rash or pruritus PFS ED PFSH: Medical History Anemia Atherosclerotic heart disease of [place] coronary artery with other forms of angina pectoris -hx of CAD with prior stenting of proximal LAD, LCx, RCA Benign essential hypertension with target blood pressure below 140/90 -VSS; continue to monitor -continue oral antihypertensives CAD (coronary artery disease) Cardiomyopathy Chest pain -With multiple prior presentations for the same and multiple coronary angiogram showing patent stents -Given continued chest pain, s/p coronary angiogram showing patent stents. Pre-medicated with steroids and benadryl due to contrast allergy -Troponins noted with no significant delta -No acute ischemic changes noted on EKG -Telemetry monitoring -VSS; continue to monitor -Equivocal nuclear stress testing in 08/2019 showing subtle area of ischemia in distribution of RCA -Cardiology evaluation appreciated -continue statin, ASA, Plavix, Imdur, BB; increase dose of imdur -MEETA CHF (congestive heart failure) Chronic anticoagulation Chronic kidney disease -baseline Cr appears to be around 1.5 -renally dose meds, avoid nephrotoxins -stable renal function particularly after cath; received IVF Chronic systolic heart failure -no evidence of acute exacerbation currently -continue diuretics -repeat limited Echo: EF=47%, diffuse LV hypokinesis, mildly increased LA size -BNP-1150 CKD (chronic kidney disease) Compartment syndrome Depression Diabetes -on ISS, accuchecks, hypoglycemia precautions; A1c-7.6 (08/2019) Foot drop, left H/O acute myocardial infarction H/O deep venous thrombosis Hyperlipidemia Hypertension Hypothyroidism Ischemic cardiomyopathy Obesity (BMI 30-39.9) Osteoarthritis of spine Port-A-Cath in place Subcutaneous mass of back Lipoma Systolic CHF Unstable angina pectoris Surgical History H/O colonoscopy 08/2015 H/O esophagogastroduodenoscopy 08/2015 H/O removal of testicle left H/O skin graft H/O vasectomy History of appendectomy History of coronary artery stent placement 5x History of excision of mass 06/08/2019: Subcutaneous mass on back History of inguinal hernia repair, bilateral 2000 History of removal of Port-a-Cath Hx of cholecystectomy Family History Grandfather Cancer skin cancer Parkinson disease Brother Hypertension Father Heart disease Mother Hypertension Stroke Aneurysm Grandmother Aneurysm Other Crohn disease Denies family history of Anesthesia complication Bleeding disorder Social History Smoking and tobacco status: never smoked Alcohol intake: former Former alcohol use details: Only holidays Lives independently: Yes Household members: significant other Marital status: Single Current occupational status: disabled History of recent travel: No Physical Exam Const: COMMON NORMALS: no acute distress GENERAL APPEARANCE: cooperative and comfortable ORIENTATION/CONSCIOUSNESS: Yes awake, Yes oriented to person, Yes oriented to place and Yes oriented to time HENMT: COMMON NORMALS: normocephalic, atraumatic and hearing grossly normal bilaterally HEAD & SCALP: normocephalic and atraumatic Neck/C-Spine: COMMON NORMALS: no JVD Resp: COMMON NORMALS: normal respiratory effort, No retractions, No use of accessory muscles and clear to auscultation bilaterally AUSCULTATION: clear to auscultation bilaterally Cardio: COMMON NORMALS: no JVD, regular rate, regular rhythm and No murmurs present (Cardio) RATE: regular rate RHYTHM: regular rhythm GI: COMMON NORMALS: Soft to palpation and No hepatosplenomegaly present AUSCULTATION: Yes normoactive bowel sounds PALPATION: Yes Soft to palpation, No Tenderness to palpation present (GI), No Guarding due to palpation present (GI) and Yes No hepatosplenomegaly present Extremity: COMMON NORMALS: normal to inspection, capillary refill normal, no clubbing, cyanosis or edema, no calf tenderness and no pedal edema Neuro: SENSORIUM/ORIENTATION: Yes oriented to person, Yes oriented to place and Yes oriented to time Skin: COMMON NORMALS: no rashes or lesions noted GENERAL SKIN EXAM: no rashes or lesions noted Course Vital Signs: Vital signs: Vital Signs Temperature 97.3 F L 03/12/20 17:16 Pulse Rate 72 03/12/20 21:22 Respiratory Rate 16 03/12/20 21:22 Blood Pressure 102/68 03/12/20 21:22 Pulse Oximetry 94 03/12/20 21:22 MDM - Chest Pain MDM Narrative: Medical decision making narrative: Care turned over to Dr. Cohen at change of shift see his notes for final diagnosis and disposition Lab Data: Labs: Lab Results 10/24/20 10/24/20 10/24/20 Range/Units 17:59 17:59 17:59 WBC 9.3 (4.0-10.0) 10^3/ uL RBC 4.07 L (4.1-5.3) 10^6/u L Hgb 11.7 (11.7-16.6) g/dL Hct 35.9 L (42.0-52.0) % MCV 88.2 (80-94) fL MCH 28.7 (28.0-34.0) pg MCHC 32.6 (30.0-36.0) g/dL RDW 15.2 H (12.1-15.1) % Plt Count 296 (130-400) 10^3/c mm MPV 9.3 (7.4-10.4) fL Neut % (Auto) 74.9 % Lymph % (Auto) 15.3 % [place] % (Auto) 7.1 % Eos % (Auto) 1.9 % Baso % (Auto) 0.5 % Neut # (Auto) 6.98 (1.8-7.7) 10^3/u L Lymph # (Auto) 1.4 (0.8-4.8) 10^3/u L [place] # (Auto) 0.7 (0.2-0.9) 10^3/u L Eos # (Auto) 0.2 (0.0-0.8) 10^3/u L Baso # (Auto) 0.1 (0.0-0.1) 10^3/u L Nucleated RBC % (a uto) 0 % Nucleated RBCs # 0.0 /100WBC PT 12.10 (12.1-14.9) SECO NDS INR 0.87 (0.8-1.2) APTT 27.3 (23.9-36.7) SECO NDS Sodium 132 L (136-145) mmol/L Potassium 5.4 H (3.5-5.1) mmol/L Chloride 102 (98-107) mmol/L Carbon Dioxide 21 L (22-29) mmol/L Anion Gap 14.4 (5-19) BUN 57 H (6-20) mg/dL Creatinine 2.0 H (0.7-1.2) mg/dL GFR Calculation 35.4 L (90-130) mL/min Glucose 201 H (65-115) mg/dL Calculated Osmolal ity 296 H (285-295) mOsm/k g Calcium 8.2 L (8.5-10.5) mg/dL Total Bilirubin 0.3 (0.15-1.2) mg/dL AST 15 (0-40) U/L ALT 19 (0-41) U/L Alkaline Phosphata se 139 H (40-130) IU/L Creatine Kinase 51 (39-308) U/L Troponin T Baselin e (0-15) ng/L Troponin T 120 Min [place] (0-15) ng/L Delta Troponin T (0-10) ABS# NT-Pro-B Natriuret Pep 719 H (0-125) pg/mL Total Protein 6.1 L (6.6-8.7) g/dL Albumin 3.9 (3.5-5.2) g/dL Globulin 2.2 (1.3-4.6) g/dL Lipase 52 (13-60) U/L Urine Color (Yellow) Urine Appearance (CLEAR) Urine pH (5-7) Ur Specific Gravit y (1.005-1.030) Urine Protein (Negative) Urine Glucose (UA) (Normal) Urine Ketones (Negative) Urine Blood (Negative) Urine Nitrate (Negative) Urine Bilirubin (Negative) Urine Urobilinogen (Negative) mg/dL Ur Leukocyte Carmen ase (Negative) Urine RBC (0-2) /hpf Urine WBC (0-5) /hpf Ur Squamous Epith Cells (0-5) /hpf Amorphous Sediment Urine Bacteria (NONE) /hpf 03/12/20 03/12/20 03/12/20 Range/Units 17:59 18:15 19:48 WBC (4.0-10.0) 10^3/ uL RBC (4.1-5.3) 10^6/u L Hgb (11.7-16.6) g/dL Hct (42.0-52.0) % MCV (80-94) fL MCH (28.0-34.0) pg MCHC (30.0-36.0) g/dL RDW (12.1-15.1) % Plt Count (130-400) 10^3/c mm MPV (7.4-10.4) fL Neut % (Auto) % Lymph % (Auto) % [place] % (Auto) % Eos % (Auto) % Baso % (Auto) % Neut # (Auto) (1.8-7.7) 10^3/u L Lymph # (Auto) (0.8-4.8) 10^3/u L [place] # (Auto) (0.2-0.9) 10^3/u L Eos # (Auto) (0.0-0.8) 10^3/u L Baso # (Auto) (0.0-0.1) 10^3/u L Nucleated RBC % (a uto) % Nucleated RBCs # /100WBC PT (12.1-14.9) SECO NDS INR (0.8-1.2) APTT (23.9-36.7) SECO NDS Sodium (136-145) mmol/L Potassium (3.5-5.1) mmol/L Chloride (98-107) mmol/L Carbon Dioxide (22-29) mmol/L Anion Gap (5-19) BUN (6-20) mg/dL Creatinine (0.7-1.2) mg/dL GFR Calculation (90-130) mL/min Glucose (65-115) mg/dL Calculated Osmolal ity (285-295) mOsm/k g Calcium (8.5-10.5) mg/dL Total Bilirubin (0.15-1.2) mg/dL AST (0-40) U/L ALT (0-41) U/L Alkaline Phosphata se (40-130) IU/L Creatine Kinase (39-308) U/L Troponin T Baselin e 28 H (0-15) ng/L Troponin T 120 Min [place] 26.61 H (0-15) ng/L Delta Troponin T -1.39 L (0-10) ABS# NT-Pro-B Natriuret Pep (0-125) pg/mL Total Protein (6.6-8.7) g/dL Albumin (3.5-5.2) g/dL Globulin (1.3-4.6) g/dL Lipase (13-60) U/L Urine Color Straw (Yellow) Urine Appearance Clear (CLEAR) Urine pH 5 (5-7) Ur Specific Gravit y 1.005 (1.005-1.030) Urine Protein 1+ H (Negative) Urine Glucose (UA) Trace H (Normal) Urine Ketones Negative (Negative) Urine Blood Neg (Negative) Urine Nitrate Negative (Negative) Urine Bilirubin Neg (Negative) Urine Urobilinogen Norm (Negative) mg/dL Ur Leukocyte Carmen ase Negative (Negative) Urine RBC 0-4 H (0-2) /hpf Urine WBC 0-4 H (0-5) /hpf Ur Squamous Epith Cells 0-4 H (0-5) /hpf Amorphous Sediment Not Reportable Urine Bacteria Trace (NONE) /hpf Discharge Plan Discharge Patient Disposition: Home Clinical Impression: Chest pain Qualifiers: Chest pain type: unspecified Qualified Code(s): R07.9 - Chest pain, unspecified Condition: Stable Prescriptions: New Prevacid 30 mg capsule,delayed release(DR/EC) 30 mg PO DAILY Qty: 30 RF: 0 No Action isosorbide mononitrate 30 mg tablet extended release 24 hr See Rx Instructions mg .ROUTE BID RF: 0 (DME) diabetic shoes Qty: 1 RF: 0 promethazine 25 mg tablet 25 mg PO Q6H PRN (Reason: Nausea And Vomiting) RF: 0 multivitamin [Daily Multi-Vitamin] Tablet 1 tab PO QAM RF: 0 citalopram 10 mg tablet 20 mg PO DAILY RF: 0 methocarbamol 750 mg tablet 750 mg PO TID PRN (Reason: Muscle Spasm) RF: 0 glipizide 10 mg tablet 10 mg PO DAILY RF: 0 levothyroxine 88 mcg capsule 88 mcg PO DAILY RF: 0 metoprolol tartrate 50 mg tablet 50 mg PO BID RF: 0 nitroglycerin [Nitrostat] 0.4 mg tablet, sublingual 0.4 mg SUBLINGUAL Q5M PRN (Reason: Chest Pain) RF: 0 metformin 500 mg tablet 500 mg PO BID RF: 0 Trulicity 0.75 mg/0.5 mL pen injector 0.75 mg SUBCUT Q7D RF: 0 furosemide [Lasix] 40 mg tablet 40 mg PO QAM RF: 0 amlodipine 5 mg tablet 5 mg PO DAILY RF: 0 aspirin 81 mg tablet,delayed release (DR/EC) 81 mg PO BID RF: 0 hydralazine 25 mg tablet 25 mg PO BID RF: 0 mupirocin 2 % ointment 1 applic TOPICAL BID Qty: 22 RF: 0 (DME) CAM WALKER See Rx Instructions .Route .MEDSUPPLY Qty: 1 RF: 0 doxycycline hyclate 100 mg capsule 100 mg PO BID 14 Days Qty: 28 RF: 0 (DME) Elizabeth See Rx Instructions .Route .MEDSUPPLY Qty: 1 RF: 0 clopidogrel 75 mg tablet 75 mg PO DAILY Qty: 90 RF: 3 atorvastatin 40 mg tablet 40 mg PO DAILY Qty: 30 RF: 5 cyclobenzaprine 10 mg tablet 10 mg PO DAILY RF: 0 hydrocodone-acetaminophen 5-325 mg tablet RF: 0 Discharge Orders: Discharge Order (Routine); Ordered 03/12/20 Ordered By: Guillermo Cohen Referrals: Kp Montanez DO [Primary Care Provider] - 4-7 days Discharge Diet: Advance as tolerated Discharge Activity: Increase activity as tolerated Patient Instructions: Chest Pain (ED) Activity Restrictions/Additional Instructions: Take medication daily as directed. Return for worsening pain despite treatment, worsening shortness of breath, fever greater than 100, vomiting liquids, other concerning symptoms. Discharge Date/Time: 03/12/20 21:37 Coding Level of Care Code ED Nursery Helper for Chg Fwd Exam Comprehensive Documented by User: Guillermo Cohen DO 03/13/20 01:23 HPI - Chest Pain General: Chief Complaint: Chest Pain Stated Complaint: flank pain/belly pain/ intestinal pain Time Seen by Provider: 03/12/20 17:49 PFSH ED PFSH: Medical History Anemia Atherosclerotic heart disease of [place] coronary artery with other forms of angina pectoris -hx of CAD with prior stenting of proximal LAD, LCx, RCA Benign essential hypertension with target blood pressure below 140/90 -VSS; continue to monitor -continue oral antihypertensives CAD (coronary artery disease) Cardiomyopathy Chest pain -With multiple prior presentations for the same and multiple coronary angiogram showing patent stents -Given continued chest pain, s/p coronary angiogram showing patent stents. Pre-medicated with steroids and benadryl due to contrast allergy -Troponins noted with no significant delta -No acute ischemic changes noted on EKG -Telemetry monitoring -VSS; continue to monitor -Equivocal nuclear stress testing in 08/2019 showing subtle area of ischemia in distribution of RCA -Cardiology evaluation appreciated -continue statin, ASA, Plavix, Imdur, BB; increase dose of imdur -MEETA CHF (congestive heart failure) Chronic anticoagulation Chronic kidney disease -baseline Cr appears to be around 1.5 -renally dose meds, avoid nephrotoxins -stable renal function particularly after cath; received IVF Chronic systolic heart failure -no evidence of acute exacerbation currently -continue diuretics -repeat limited Echo: EF=47%, diffuse LV hypokinesis, mildly increased LA size -BNP-1150 CKD (chronic kidney disease) Compartment syndrome Depression Diabetes -on ISS, accuchecks, hypoglycemia precautions; A1c-7.6 (08/2019) Foot drop, left H/O acute myocardial infarction H/O deep venous thrombosis Hyperlipidemia Hypertension Hypothyroidism Ischemic cardiomyopathy Obesity (BMI 30-39.9) Osteoarthritis of spine Port-A-Cath in place Subcutaneous mass of back Lipoma Systolic CHF Unstable angina pectoris Surgical History H/O colonoscopy 08/2015 H/O esophagogastroduodenoscopy 08/2015 H/O removal of testicle left H/O skin graft H/O vasectomy History of appendectomy History of coronary artery stent placement 5x History of excision of mass 06/08/2019: Subcutaneous mass on back History of inguinal hernia repair, bilateral 2000 History of removal of Port-a-Cath Hx of cholecystectomy Family History Grandfather Cancer skin cancer Parkinson disease Brother Hypertension Father Heart disease Mother Hypertension Stroke Aneurysm Grandmother Aneurysm Other Crohn disease Denies family history of Anesthesia complication Bleeding disorder Social History Smoking and tobacco status: never smoked Alcohol intake: former Former alcohol use details: Only holidays Lives independently: Yes Household members: significant other Marital status: Single Current occupational status: disabled History of recent travel: No Course Vital Signs: Vital signs: Vital Signs Temperature 97.3 F L 03/12/20 17:16 Pulse Rate 72 03/12/20 21:22 Respiratory Rate 16 03/12/20 21:22 Blood Pressure 102/68 03/12/20 21:22 Pulse Oximetry 94 03/12/20 21:22 MDM - Chest Pain MDM Narrative: Medical decision making narrative: 49-year-old male well-known to the ER. He has been seen frequently for chest discomfort. He does have a history of chronic renal disease as well as nonischemic heart disease. He presents with chest discomfort. His chest x-ray is negative. His EKG shows some T wave flattening in the lateral leads that is old. There are no other acute ST changes. His troponin did not elevate at 2 hours. He is received some IV fluid for a minimally high potassium and low bicarbonate level. He will be allowed home. I suspect this is more of a GI related chest discomfort. Lab Data: Labs: Lab Results 03/12/20 03/12/20 03/12/20 Range/Units 17:59 17:59 17:59 WBC 9.3 (4.0-10.0) 10^3/ uL RBC 4.07 L (4.1-5.3) 10^6/u L Hgb 11.7 (11.7-16.6) g/dL Hct 35.9 L (42.0-52.0) % MCV 88.2 (80-94) fL MCH 28.7 (28.0-34.0) pg MCHC 32.6 (30.0-36.0) g/dL RDW 15.2 H (12.1-15.1) % Plt Count 296 (130-400) 10^3/c mm MPV 9.3 (7.4-10.4) fL Neut % (Auto) 74.9 % Lymph % (Auto) 15.3 % [place] % (Auto) 7.1 % Eos % (Auto) 1.9 % Baso % (Auto) 0.5 % Neut # (Auto) 6.98 (1.8-7.7) 10^3/u L Lymph # (Auto) 1.4 (0.8-4.8) 10^3/u L [place] # (Auto) 0.7 (0.2-0.9) 10^3/u L Eos # (Auto) 0.2 (0.0-0.8) 10^3/u L Baso # (Auto) 0.1 (0.0-0.1) 10^3/u L Nucleated RBC % (a uto) 0 % Nucleated RBCs # 0.0 /100WBC PT 12.10 (12.1-14.9) SECO NDS INR 0.87 (0.8-1.2) APTT 27.3 (23.9-36.7) SECO NDS Sodium 132 L (136-145) mmol/L Potassium 5.4 H (3.5-5.1) mmol/L Chloride 102 (98-107) mmol/L Carbon Dioxide 21 L (22-29) mmol/L Anion Gap 14.4 (5-19) BUN 57 H (6-20) mg/dL Creatinine 2.0 H (0.7-1.2) mg/dL GFR Calculation 35.4 L (90-130) mL/min Glucose 201 H (65-115) mg/dL Calculated Osmolal ity 296 H (285-295) mOsm/k g Calcium 8.2 L (8.5-10.5) mg/dL Total Bilirubin 0.3 (0.15-1.2) mg/dL AST 15 (0-40) U/L ALT 19 (0-41) U/L Alkaline Phosphata se 139 H (40-130) IU/L Creatine Kinase 51 (39-308) U/L Troponin T Baselin e (0-15) ng/L Troponin T 120 Min [place] (0-15) ng/L Delta Troponin T (0-10) ABS# NT-Pro-B Natriuret Pep 719 H (0-125) pg/mL Total Protein 6.1 L (6.6-8.7) g/dL Albumin 3.9 (3.5-5.2) g/dL Globulin 2.2 (1.3-4.6) g/dL Lipase 52 (13-60) U/L Urine Color (Yellow) Urine Appearance (CLEAR) Urine pH (5-7) Ur Specific Gravit y (1.005-1.030) Urine Protein (Negative) Urine Glucose (UA) (Normal) Urine Ketones (Negative) Urine Blood (Negative) Urine Nitrate (Negative) Urine Bilirubin (Negative) Urine Urobilinogen (Negative) mg/dL Ur Leukocyte Carmen ase (Negative) Urine RBC (0-2) /hpf Urine WBC (0-5) /hpf Ur Squamous Epith Cells (0-5) /hpf Amorphous Sediment Urine Bacteria (NONE) /hpf 03/12/20 03/12/20 03/12/20 Range/Units 17:59 18:15 19:48 WBC (4.0-10.0) 10^3/ uL RBC (4.1-5.3) 10^6/u L Hgb (11.7-16.6) g/dL Hct (42.0-52.0) % MCV (80-94) fL MCH (28.0-34.0) pg MCHC (30.0-36.0) g/dL RDW (12.1-15.1) % Plt Count (130-400) 10^3/c mm MPV (7.4-10.4) fL Neut % (Auto) % Lymph % (Auto) % [place] % (Auto) % Eos % (Auto) % Baso % (Auto) % Neut # (Auto) (1.8-7.7) 10^3/u L Lymph # (Auto) (0.8-4.8) 10^3/u L [place] # (Auto) (0.2-0.9) 10^3/u L Eos # (Auto) (0.0-0.8) 10^3/u L Baso # (Auto) (0.0-0.1) 10^3/u L Nucleated RBC % (a uto) % Nucleated RBCs # /100WBC PT (12.1-14.9) SECO NDS INR (0.8-1.2) APTT (23.9-36.7) SECO NDS Sodium (136-145) mmol/L Potassium (3.5-5.1) mmol/L Chloride (98-107) mmol/L Carbon Dioxide (22-29) mmol/L Anion Gap (5-19) BUN (6-20) mg/dL Creatinine (0.7-1.2) mg/dL GFR Calculation (90-130) mL/min Glucose (65-115) mg/dL Calculated Osmolal ity (285-295) mOsm/k g Calcium (8.5-10.5) mg/dL Total Bilirubin (0.15-1.2) mg/dL AST (0-40) U/L ALT (0-41) U/L Alkaline Phosphata se (40-130) IU/L Creatine Kinase (39-308) U/L Troponin T Baselin e 28 H (0-15) ng/L Troponin T 120 Min [place] 26.61 H (0-15) ng/L Delta Troponin T -1.39 L (0-10) ABS# NT-Pro-B Natriuret Pep (0-125) pg/mL Total Protein (6.6-8.7) g/dL Albumin (3.5-5.2) g/dL Globulin (1.3-4.6) g/dL Lipase (13-60) U/L Urine Color Straw (Yellow) Urine Appearance Clear (CLEAR) Urine pH 5 (5-7) Ur Specific Gravit y 1.005 (1.005-1.030) Urine Protein 1+ H (Negative) Urine Glucose (UA) Trace H (Normal) Urine Ketones Negative (Negative) Urine Blood Neg (Negative) Urine Nitrate Negative (Negative) Urine Bilirubin Neg (Negative) Urine Urobilinogen Norm (Negative) mg/dL Ur Leukocyte Carmen ase Negative (Negative) Urine RBC 0-4 H (0-2) /hpf Urine WBC 0-4 H (0-5) /hpf Ur Squamous Epith Cells 0-4 H (0-5) /hpf Amorphous Sediment Not Reportable Urine Bacteria Trace (NONE) /hpf Discharge Plan Discharge Patient Disposition: Home Clinical Impression: Chest pain Qualifiers: Chest pain type: unspecified Qualified Code(s): R07.9 - Chest pain, unspecified Condition: Stable Prescriptions: New Prevacid 30 mg capsule,delayed release(DR/EC) 30 mg PO DAILY Qty: 30 RF: 0 No Action isosorbide mononitrate 30 mg tablet extended release 24 hr See Rx Instructions mg .ROUTE BID RF: 0 (DME) diabetic shoes Qty: 1 RF: 0 promethazine 25 mg tablet 25 mg PO Q6H PRN (Reason: Nausea And Vomiting) RF: 0 multivitamin [Daily Multi-Vitamin] Tablet 1 tab PO QAM RF: 0 citalopram 10 mg tablet 20 mg PO DAILY RF: 0 methocarbamol 750 mg tablet 750 mg PO TID PRN (Reason: Muscle Spasm) RF: 0 glipizide 10 mg tablet 10 mg PO DAILY RF: 0 levothyroxine 88 mcg capsule 88 mcg PO DAILY RF: 0 metoprolol tartrate 50 mg tablet 50 mg PO BID RF: 0 nitroglycerin [Nitrostat] 0.4 mg tablet, sublingual 0.4 mg SUBLINGUAL Q5M PRN (Reason: Chest Pain) RF: 0 metformin 500 mg tablet 500 mg PO BID RF: 0 Trulicity 0.75 mg/0.5 mL pen injector 0.75 mg SUBCUT Q7D RF: 0 furosemide [Lasix] 40 mg tablet 40 mg PO QAM RF: 0 amlodipine 5 mg tablet 5 mg PO DAILY RF: 0 aspirin 81 mg tablet,delayed release (DR/EC) 81 mg PO BID RF: 0 hydralazine 25 mg tablet 25 mg PO BID RF: 0 mupirocin 2 % ointment 1 applic TOPICAL BID Qty: 22 RF: 0 (DME) BYRON MCKINLEY See Rx Instructions .Route .MEDSUPPLY Qty: 1 RF: 0 doxycycline hyclate 100 mg capsule 100 mg PO BID 14 Days Qty: 28 RF: 0 (DME) Elizabeth See Rx Instructions .Route .MEDSUPPLY Qty: 1 RF: 0 clopidogrel 75 mg tablet 75 mg PO DAILY Qty: 90 RF: 3 atorvastatin 40 mg tablet 40 mg PO DAILY Qty: 30 RF: 5 cyclobenzaprine 10 mg tablet 10 mg PO DAILY RF: 0 hydrocodone-acetaminophen 5-325 mg tablet RF: 0 Discharge Orders: Discharge Order (Routine); Ordered 03/12/20 Ordered By: Guillermo Cohen Referrals: Kp Montanez DO [Primary Care Provider] - 4-7 days Discharge Diet: Advance as tolerated Discharge Activity: Increase activity as tolerated Patient Instructions: Chest Pain (ED) Activity Restrictions/Additional Instructions: Take medication daily as directed. Return for worsening pain despite treatment, worsening shortness of breath, fever greater than 100, vomiting liquids, other concerning symptoms. Discharge Date/Time: 03/12/20 21:37 Coding Level of Care Code ED Nursery Helper for Chg Fwd Exam Comprehensive
[2020-03-12 18:06] LABS: Basophils # 0.1 10^3/uL (0.0-0.1); Basophils % 0.5 %; Eosinophils # 0.2 10^3/uL (0.0-0.8); Eosinophils % 1.9 %; Hematocrit 35.9 % (42.0-52.0); Hemoglobin 11.7 g/dL (11.7-16.6); Lymphocytes # 1.4 10^3/uL (0.8-4.8); Lymphocytes % 15.3 %; Mean Corpuscular HGB Conc 32.6 g/dL (30.0-36.0); Mean Corpuscular Hemoglobin 28.7 pg (28.0-34.0); Mean Corpuscular Volume 88.2 fL (80-94); Mean Platelet Volume 9.3 fL (7.4-10.4); Monocytes # 0.7 10^3/uL (0.2-0.9); Monocytes % 7.1 %; Neutrophils # 6.98 10^3/uL (1.8-7.7); Neutrophils % 74.9 %; Nucleated Red Blood Cells % 0 %; Platelet Count 296 10^3/cmm (130-400); Red Blood Count 4.07 10^6/uL (4.1-5.3); Red Cell Distribution Width 15.2 % (12.1-15.1); White Blood Count 9.3 10^3/uL (4.0-10.0)
[2020-03-12 18:25] LABS: Troponin(5th) Baseline 28 ng/L (0-15)
[2020-03-12 18:35] LABS: Alanine Aminotransferase 19 U/L (0-41); Albumin Level 3.9 g/dL (3.5-5.2); Alkaline Phosphatase 139 IU/L (40-130); Anion Gap 14.4 (5-19); Aspartate Amino Transferase 15 U/L (0-40); Blood Urea Nitrogen 57 mg/dL (6-20); Calcium 8.2 mg/dL (8.5-10.5); Carbon Dioxide 21 mmol/L (22-29); Chloride 102 mmol/L (98-107); Creatine Phosphokinase 51 U/L (39-308); Globulin 2.2 g/dL (1.3-4.6); Glomerular Filtration Rate 35.4 mL/min (90-130); Glucose 201 mg/dL (65-115); Lipase 52 U/L (13-60); NT Pro B Type Natriuretic Pept 719 pg/mL (0-125); Osmolality Calculated 296 mOsm/kg (285-295); Potassium 5.4 mmol/L (3.5-5.1); Sodium 132 mmol/L (136-145); Total Bilirubin 0.3 mg/dL (0.15-1.2); Total Protein 6.1 g/dL (6.6-8.7)
[2020-03-12] MEDS: lidocaine 2% viscous 15 ML, aluminum-mag hydrox-simethicon 30 ML, sucralfate oral liq 1 GM PO (18:47)
[2020-03-12] MEDS: morphine 4 mg/mL SDV 1 mL IVP (18:53)
[2020-03-12] MEDS: sodium chloride 0.9% 1,000 ML 999 ML IV (18:54)
[2020-03-12 18:57] LABS: Add Urine Microscopic? YES; Bilirubin Urine Neg (Negative); Blood Urine Neg (Negative); Glucose Urine UA Trace (Normal); Ketones Urine Negative (Negative); Leukocyte Esterase Urine Negative (Negative); Nitrate Urine Negative (Negative); Protein Urine 1+ (Negative); Specific Gravity, Urine 1.005 (1.005-1.030); Urine Appearance Clear (CLEAR); Urine Color Straw (Yellow); Urobilinogen Urine Norm (Negative); pH Urine 5 (5-7)
[2020-03-12 19:02] LABS: Add Urine Culture? No; Bacteria Urine TRACE /hpf; RBC Urine 0-4 /hpf (0-2); Squamous Epithelial Cell Urine 0-4 /hpf (0-5); WBC Urine 0-4 /hpf (0-5)
[2020-03-12 19:22] LABS: INR 0.87 (0.8-1.2)
[2020-03-12 19:23] LABS: Partial Thromboplastin Time 27.3 SECONDS (23.9-36.7)
--- NOTE | 2020-03-12 19:35 | ECG_ITS ---
[facility] Test Date: 2020-03-12 Pat Name: Rei Queen Department: Room: Gender: Male Bar Helper: : 1970 Requested By: Timo Hart Order Number: [id number] Becky MD: Tory Lopez M.D. Measurements Intervals [place] Rate: 79 P: 8 IN: 175 QRS: -45 QRSD: 99 T: 116 QT: 360 QTc: 415 Interpretive Statements SINUS RHYTHM LEFT AXIS DEVIATION [QRS AXIS < -30] POSSIBLE ANTERIOR MYOCARDIAL INFARCTION , OF INDETERMINATE AGE [30 ms Q WAVE IN V3/V4, OR R < 0.2 mV IN V4] MODERATE T-WAVE ABNORMALITY, CONSIDER LATERAL ISCHEMIA [-0.1+ mV T WAVE IN I/aVL/V5/V6] Compared to ECG 03/12/2020 17:25:17 No significant changes Electronically Signed On 03-12-2020 22:09:26 CDT by Tory Lopez M.D. [id number]
[2020-03-12] MEDS: haloperidol inj 5 mg/mL INJ 1 mL 3 MG IVP (20:03)
[2020-03-12 20:30] LABS: Troponin 5 2HR 26.61 ng/L (0-15)
[2020-03-12 20:32] LABS: Troponin 5 2HR Delta -1.39 ABS# (0-10)
== END 2020-03-12 21:37 | disposition home or self-care (01) ==
PROVIDERS: Family Medicine; Emergency Provider Emergency Medicine; PCP Internal Medicine
DX: R07.9 Chest pain, unspecified (principal); Z79.82 Long term (current) use of aspirin; Z79.84 Long term (current) use of oral hypoglycemic drugs; Z79.02 Long term (current) use of antithrombotics/antiplatelets; I25.118 Atherosclerotic heart disease of native coronary artery with other forms of angina pectoris; I11.0 Hypertensive heart disease with heart failure; I50.22 Chronic systolic (congestive) heart failure; E11.9 Type 2 diabetes mellitus without complications; I25.2 Old myocardial infarction; E78.5 Hyperlipidemia, unspecified
CPT/HCPCS: 12345; 36415; 71045; 80053; 81001; 82550; 83690; 83880; 84484; 85025; 85610; 85730; 93005; 96361; 96374; 96375; 99283; 99284; J1630; J1642; J2270; J7030

== ENCOUNTER 2020-03-15 10:07 | Emergency (ER) | payer MEDICARE, MEDICAID, SELFPAY ==
[2020-03-15 10:13] VITALS: BP 89/60; PULSE 85; RESP 16; TEMP 36.3; O2SAT 92; BMI 36.1
--- NOTE | 2020-03-15 10:30 | W.ED.ABDPA2 ---
HPI - Abdominal Pain General: Chief Complaint: Nausea/Vomiting/Diarrhea Stated Complaint: vomiting w/red spec, loose stool w/dark red specks Time Seen by Provider: 03/15/20 10:18 Source: patient Mode of arrival: wheelchair Limitations: no limitations History of Present Illness: HPI narrative: NVD, abdominal pain Associated Symptoms: Reports GI cramping, diarrhea, nausea and vomiting; Denies chills and fever(s) Review of Systems Const: Denies: fever(s) or chills GI: Reports: abdominal pain, nausea, vomiting, diarrhea and GI cramping PFS ED PFSH: Medical History Anemia Atherosclerotic heart disease of [place] coronary artery with other forms of angina pectoris -hx of CAD with prior stenting of proximal LAD, LCx, RCA Benign essential hypertension with target blood pressure below 140/90 -VSS; continue to monitor -continue oral antihypertensives CAD (coronary artery disease) Cardiomyopathy Chest pain -With multiple prior presentations for the same and multiple coronary angiogram showing patent stents -Given continued chest pain, s/p coronary angiogram showing patent stents. Pre-medicated with steroids and benadryl due to contrast allergy -Troponins noted with no significant delta -No acute ischemic changes noted on EKG -Telemetry monitoring -VSS; continue to monitor -Equivocal nuclear stress testing in 08/2019 showing subtle area of ischemia in distribution of RCA -Cardiology evaluation appreciated -continue statin, ASA, Plavix, Imdur, BB; increase dose of imdur -MEETA CHF (congestive heart failure) Chronic anticoagulation Chronic kidney disease -baseline Cr appears to be around 1.5 -renally dose meds, avoid nephrotoxins -stable renal function particularly after cath; received IVF Chronic systolic heart failure -no evidence of acute exacerbation currently -continue diuretics -repeat limited Echo: EF=47%, diffuse LV hypokinesis, mildly increased LA size -BNP-1150 CKD (chronic kidney disease) Compartment syndrome Depression Diabetes -on ISS, accuchecks, hypoglycemia precautions; A1c-7.6 (08/2019) Foot drop, left H/O acute myocardial infarction H/O deep venous thrombosis Hyperlipidemia Hypertension Hypothyroidism Ischemic cardiomyopathy Obesity (BMI 30-39.9) Osteoarthritis of spine Port-A-Cath in place Subcutaneous mass of back Lipoma Systolic CHF Unstable angina pectoris Surgical History H/O colonoscopy 08/2015 H/O esophagogastroduodenoscopy 08/2015 H/O removal of testicle left H/O skin graft H/O vasectomy History of appendectomy History of coronary artery stent placement 5x History of excision of mass 06/08/2019: Subcutaneous mass on back History of inguinal hernia repair, bilateral 2000 History of removal of Port-a-Cath Hx of cholecystectomy Family History Grandfather Cancer skin cancer Parkinson disease Brother Hypertension Father Heart disease Mother Hypertension Stroke Aneurysm Grandmother Aneurysm Other Crohn disease Denies family history of Anesthesia complication Bleeding disorder Social History Smoking and tobacco status: never smoked Alcohol intake: former Former alcohol use details: Only holidays Lives independently: Yes Household members: significant other Marital status: Single Current occupational status: disabled History of recent travel: No Physical Exam Const: COMMON NORMALS: no acute distress, patient oriented x3, no limitations and alert GENERAL APPEARANCE: cooperative and comfortable ORIENTATION/CONSCIOUSNESS: Yes awake, Yes oriented to person, Yes oriented to place and Yes oriented to time HENMT: COMMON NORMALS: normocephalic, atraumatic, external ears normal, EAC's normal, TM's normal bilaterally and Normal external nose present HEAD & SCALP: normal to inspection, normocephalic and atraumatic FACE & SINUS: normal facial exam, sinuses nontender and face symmetric NOSE: Normal external nose present, Normal nares present and No nasal discharge present EXTERNAL EAR: Yes external ears normal EXTERNAL AUDITORY CANAL: EAC's normal TYMPANIC MEMBRANE: TM's normal bilaterally MOUTH: Normal oral and palatal mucosa present, lip normal and tongue normal THROAT: posterior oropharynx normal, tonsils normal and uvula midline Eye: COMMON NORMALS: Equal, round and reactive pupils present, EOMs intact bilaterally and conjunctivae normal GENERAL EYE: appearance normal, both eyes and all related structures and normal light reflex EYELID: eyelids normal CONJUNCTIVA: Yes conjunctivae normal PUPIL: Yes Equal, round and reactive pupils present EOM: Yes EOM abnormal DIRECT OPHTHALMOSCOPY: Yes normal light reflex Neck/C-Spine: COMMON NORMALS: full ROM, no lymphadenopathy, supple, no meningeal signs, no JVD and Thyroid normal GENERAL: Yes normal visual inspection THYROID: Thyroid normal CERVICAL SPINE: Yes cervical ROM normal and Yes normal cervical lordosis Lymph: LYMPHATIC: no lymphadenopathy noted Chest: COMMONS NORMALS: normal inspection of the chest and normal palpation of entire chest wall Resp: COMMON NORMALS: normal respiratory effort, No retractions and clear to auscultation bilaterally AUSCULTATION: clear to auscultation bilaterally Cardio: COMMON NORMALS: no JVD, regular rate, regular rhythm, S1 normal heart sound present, S2 normal heart sound present, No gallops present (Cardio), No clicks present (Cardio), No murmurs present (Cardio), No rub (Cardio) and Peripheral pulses 2+ throughout RATE: regular rate RHYTHM: regular rhythm HEART SOUNDS: S1 normal heart sound present and S2 normal heart sound present PERIPHERAL PULSES: Peripheral pulses 2+ throughout GI: COMMON NORMALS: Normal to inspection, nondistended, normoactive bowel sounds present, Soft to palpation, non-tender and no masses INSPECTION: Yes normal to inspection PALPATION: Yes Soft to palpation and Yes Tenderness to palpation present (GI) : COMMON NORMALS: Yes no CVA tenderness BLADDER/KIDNEY EXAM: Yes no CVA tenderness Back/Pelvis: COMMON NORMALS: no CVA tenderness, thoracic and lumbar spine normal to inspection, no thoracic nor lumbar tenderness and thoraco-lumbar ROM normal Extremity: COMMON NORMALS: normal to inspection, full ROM, capillary refill normal, no joint enlargement, no clubbing, cyanosis or edema, no calf tenderness and no pedal edema GENERAL: Yes normal exam except as noted Neuro: COMMON NORMALS: patient oriented x3, moves all extremities, no focal motor deficits, no sensory deficits noted and gait normal SENSORIUM/ORIENTATION: Yes alert, Yes oriented to person, Yes oriented to place and Yes oriented to time MENINGEAL SIGNS: Yes no meningeal signs Psych: COMMON NORMALS: mental status grossly normal, Normal thought process present, cooperative, normal affect, speech normal and activity/motor behavior normal SPEECH: Yes normal speech THOUGHT PROCESS: Normal thought process present Skin: COMMON NORMALS: no rashes or lesions noted, no wounds and turgor normal GENERAL SKIN EXAM: no rashes or lesions noted and turgor normal Course ED course: Pt has had NVD and lower abdominal pain since last night. He states he has not had a fever. Upon examination he is pale and hypotensive. IV fluids and labs ordered. Pt is diabetic and stage three kidney disease. Reevaluation(s): Reevaluation #1: Pt BP has improved with 1 L of fluids; his pain is eased up a bit from his morphine. No NV or D presently. Awaiting CT labs. WBC 15.7. Will discuss with Dr. Gauthier once CT is back. Time: 13:39 Reevaluation #2: Repeat Trop, BMP, and urine ordered. Discussed with Dr. Gauthier. Likely viral gastroenteritis but UA needs to be checked to rule out UTI. Mild dehydration. Will likely proceed with DC; awaiting additional labs before decision. Time: 14:21 Reevaluation #3: Pt trop was down to 24. He is overall improving. Discussed clear liquid diet with pt and asked about allergies to nausea meds, pt restated multiple times he is not allergic to phenergan but is allergic to other nausea meds. I prescribed this and explained that in his MAR it is noted as an allergy. He states this is not correct and his allergy is only to compazine, zofran, and reglan. Will proceed with dispo. His labs are abnormal but chronically abnormal and not much different than his baseline. Time: 14:56 Vital Signs: Vital signs: Vital Signs Temperature 97.4 F L 03/15/20 10:13 Pulse Rate 85 03/15/20 10:13 Respiratory Rate 18 03/15/20 11:57 Blood Pressure 89/60 03/15/20 10:13 Pulse Oximetry 98 03/15/20 11:57 MDM - Abdominal Pain Lab Data: Labs: Lab Results 03/15/20 03/15/20 03/15/20 Range/Units 10:34 10:34 10:36 WBC 15.7 H (4.0-10.0) 10^3/ uL RBC 4.55 (4.1-5.3) 10^6/u L Hgb 13.2 (11.7-16.6) g/dL Hct 41.2 L (42.0-52.0) % MCV 90.5 (80-94) fL MCH 29.0 (28.0-34.0) pg MCHC 32.0 (30.0-36.0) g/dL RDW 15.2 H (12.1-15.1) % Plt Count 342 (130-400) 10^3/c mm MPV 9.9 (7.4-10.4) fL Neut % (Auto) 78.4 % Lymph % (Auto) 12.7 % [place] % (Auto) 5.6 % Eos % (Auto) 2.0 % Baso % (Auto) 0.7 % Neut # (Auto) 12.27 H (1.8-7.7) 10^3/u L Lymph # (Auto) 2.0 (0.8-4.8) 10^3/u L [place] # (Auto) 0.9 (0.2-0.9) 10^3/u L Eos # (Auto) 0.3 (0.0-0.8) 10^3/u L Baso # (Auto) 0.1 (0.0-0.1) 10^3/u L Nucleated RBC % (a uto) 0 % Nucleated RBCs # 0.0 /100WBC Sodium (136-145) mmol/L Potassium (3.5-5.1) mmol/L Chloride (98-107) mmol/L Carbon Dioxide (22-29) mmol/L Anion Gap (5-19) BUN (6-20) mg/dL Creatinine (0.7-1.2) mg/dL GFR Calculation (90-130) mL/min Glucose (65-115) mg/dL Calculated Osmolal ity (285-295) mOsm/k g Calcium (8.5-10.5) mg/dL Total Bilirubin (0.15-1.2) mg/dL AST (0-40) U/L ALT (0-41) U/L Alkaline Phosphata se (40-130) IU/L Creatine Kinase 63 (39-308) U/L Troponin T Baselin e 32 H (0-15) ng/L Troponin T 120 Min [place] (0-15) ng/L Delta Troponin T (0-10) ABS# Total Protein (6.6-8.7) g/dL Albumin (3.5-5.2) g/dL Globulin (1.3-4.6) g/dL Urine Color (Yellow) Urine Appearance (CLEAR) Urine pH (5-7) Ur Specific Gravit y (1.005-1.030) Urine Protein (Negative) Urine Glucose (UA) (Normal) Urine Ketones (Negative) Urine Blood (Negative) Urine Nitrate (Negative) Urine Bilirubin (Negative) Urine Urobilinogen (Negative) mg/dL Ur Leukocyte Carmen ase (Negative) Urine RBC (0-2) /hpf Urine WBC (0-5) /hpf Ur Squamous Epith Cells (0-5) /hpf Amorphous Sediment Urine Bacteria (NONE) /hpf Hyaline Casts /lpf 03/15/20 03/15/20 03/15/20 Range/Units 10:36 13:50 13:50 WBC (4.0-10.0) 10^3/ uL RBC (4.1-5.3) 10^6/u L Hgb (11.7-16.6) g/dL Hct (42.0-52.0) % MCV (80-94) fL MCH (28.0-34.0) pg MCHC (30.0-36.0) g/dL RDW (12.1-15.1) % Plt Count (130-400) 10^3/c mm MPV (7.4-10.4) fL Neut % (Auto) % Lymph % (Auto) % [place] % (Auto) % Eos % (Auto) % Baso % (Auto) % Neut # (Auto) (1.8-7.7) 10^3/u L Lymph # (Auto) (0.8-4.8) 10^3/u L [place] # (Auto) (0.2-0.9) 10^3/u L Eos # (Auto) (0.0-0.8) 10^3/u L Baso # (Auto) (0.0-0.1) 10^3/u L Nucleated RBC % (a uto) % Nucleated RBCs # /100WBC Sodium 132 L 133 L (136-145) mmol/L Potassium 5.6 H 5.8 H (3.5-5.1) mmol/L Chloride 99 102 (98-107) mmol/L Carbon Dioxide 18 L 21 L (22-29) mmol/L Anion Gap 20.6 H 15.8 (5-19) BUN 53 H 54 H (6-20) mg/dL Creatinine 2.1 H 2.0 H (0.7-1.2) mg/dL GFR Calculation 33.5 L 35.4 L (90-130) mL/min Glucose 293 H 206 H (65-115) mg/dL Calculated Osmolal ity 299 H 297 H (285-295) mOsm/k g Calcium 9.1 8.5 (8.5-10.5) mg/dL Total Bilirubin 0.6 (0.15-1.2) mg/dL AST 22 (0-40) U/L ALT 25 (0-41) U/L Alkaline Phosphata se 137 H (40-130) IU/L Creatine Kinase (39-308) U/L Troponin T Baselin e (0-15) ng/L Troponin T 120 Min [place] 24.39 H (0-15) ng/L Delta Troponin T -7.61 L (0-10) ABS# Total Protein 6.4 L (6.6-8.7) g/dL Albumin 3.9 (3.5-5.2) g/dL Globulin 2.5 (1.3-4.6) g/dL Urine Color (Yellow) Urine Appearance (CLEAR) Urine pH (5-7) Ur Specific Gravit y (1.005-1.030) Urine Protein (Negative) Urine Glucose (UA) (Normal) Urine Ketones (Negative) Urine Blood (Negative) Urine Nitrate (Negative) Urine Bilirubin (Negative) Urine Urobilinogen (Negative) mg/dL Ur Leukocyte Carmen ase (Negative) Urine RBC (0-2) /hpf Urine WBC (0-5) /hpf Ur Squamous Epith Cells (0-5) /hpf Amorphous Sediment Urine Bacteria (NONE) /hpf Hyaline Casts /lpf 03/15/20 Range/Units 14:03 WBC (4.0-10.0) 10^3/ uL RBC (4.1-5.3) 10^6/u L Hgb (11.7-16.6) g/dL Hct (42.0-52.0) % MCV (80-94) fL MCH (28.0-34.0) pg MCHC (30.0-36.0) g/dL RDW (12.1-15.1) % Plt Count (130-400) 10^3/c mm MPV (7.4-10.4) fL Neut % (Auto) % Lymph % (Auto) % [place] % (Auto) % Eos % (Auto) % Baso % (Auto) % Neut # (Auto) (1.8-7.7) 10^3/u L Lymph # (Auto) (0.8-4.8) 10^3/u L [place] # (Auto) (0.2-0.9) 10^3/u L Eos # (Auto) (0.0-0.8) 10^3/u L Baso # (Auto) (0.0-0.1) 10^3/u L Nucleated RBC % (a uto) % Nucleated RBCs # /100WBC Sodium (136-145) mmol/L Potassium (3.5-5.1) mmol/L Chloride (98-107) mmol/L Carbon Dioxide (22-29) mmol/L Anion Gap (5-19) BUN (6-20) mg/dL Creatinine (0.7-1.2) mg/dL GFR Calculation (90-130) mL/min Glucose (65-115) mg/dL Calculated Osmolal ity (285-295) mOsm/k g Calcium (8.5-10.5) mg/dL Total Bilirubin (0.15-1.2) mg/dL AST (0-40) U/L ALT (0-41) U/L Alkaline Phosphata se (40-130) IU/L Creatine Kinase (39-308) U/L Troponin T Baselin e (0-15) ng/L Troponin T 120 Min [place] (0-15) ng/L Delta Troponin T (0-10) ABS# Total Protein (6.6-8.7) g/dL Albumin (3.5-5.2) g/dL Globulin (1.3-4.6) g/dL Urine Color Straw (Yellow) Urine Appearance Clear (CLEAR) Urine pH 5 (5-7) Ur Specific Gravit y 1.010 (1.005-1.030) Urine Protein Trace (Negative) Urine Glucose (UA) Norm (Normal) Urine Ketones Negative (Negative) Urine Blood Neg (Negative) Urine Nitrate Negative (Negative) Urine Bilirubin Neg (Negative) Urine Urobilinogen Norm (Negative) mg/dL Ur Leukocyte Carmen ase Negative (Negative) Urine RBC 0-4 H (0-2) /hpf Urine WBC None (0-5) /hpf Ur Squamous Epith Cells 0-4 H (0-5) /hpf Amorphous Sediment Not Reportable Urine Bacteria Trace (NONE) /hpf Hyaline Casts 0-4 H /lpf Imaging Data ^: CT Abd/Pel: Radiologist's impression: [facility] [address] [place] [address] CT Scan Report Signed Patient: Rei Queen II Unit #: [id number] : 1970 Age/Sex: 49 / M ADM Date: 03/15/20 Loc: ER Room/Bed: Attending Dr: Ordering Provider/Ordering MD: Rina Harris NP Date of Service: 03/15/20 Procedure(s): CT abdomen pelvis wo con [id number] Accession Number(s): [id number] Report Number: [id number] WS: [id number] Exam: CT abdomen pelvis wo con [id number] Date/Time of Exam: 03/15/2020 1:10 PM Reason For Exam: abd pain/blood in stool Technique: Axial contiguous CT images with coronal and sagital reformats. DLP: 1686.[address] scans at [facility] use at least one of these dose optimization techniques: automated exposure control; mA and/or kV adjustment per patient size (includes targeted exams where dose is matched to clinical indication); or iterative reconstruction. Findings: Compared to previous study 08/07/2019. Lower lung zones are clear. Triple vessel coronary artery calcifications noted. The liver, stomach, spleen and pancreas appear normal. The gallbladder is surgically absent. The abdominal aorta is normal in caliber. Kidneys are unremarkable. Bilateral adrenal nodules are noted which are unchanged. Small bowel loops are not dilated. No free air. No lymphadenopathy. No sign of acute appendix. Minimal colonic diverticulosis. No signs of acute diverticulitis. Intact urinary bladder. No pelvic mass or adenopathy. Small amount of interloop free fluid in the pelvis. Moderately advanced atherosclerotic disease of the abdominal aorta and major branches. Calcification of the seminal vesicles. No destructive bone lesions. No significant abdominal wall defect. CT/CT abdomen pelvis wo con [id number] IMPRESSION: 1. No mass, lymphadenopathy or acute finding. 2. Small amount of free interloop fluid in the pelvis. 3. Minimal colonic diverticulosis. No sign of acute diverticulitis. 4. Stable appearing bilateral adrenal nodules. Dictated By: Jimbo Pyle DO Signed By: Jimbo Pyle DO Signed Date/Time: 03/15/20 1346 DD/ 1334 Discharge Plan Discharge Patient Disposition: Home Clinical Impression: Gastroenteritis Condition: Stable Prescriptions: New promethazine 25 mg tablet 25 mg PO TID PRN (Reason: nausea and vomiting) Qty: 20 RF: 0 No Action isosorbide mononitrate 30 mg tablet extended release 24 hr 30 mg PO BID RF: 0 (DME) diabetic shoes Qty: 1 RF: 0 promethazine 25 mg tablet 25 mg PO Q6H PRN (Reason: Nausea And Vomiting) RF: 0 multivitamin [Daily Multi-Vitamin] Tablet 1 tab PO QAM RF: 0 citalopram 10 mg tablet 20 mg PO DAILY RF: 0 methocarbamol 750 mg tablet 750 mg PO TID PRN (Reason: Muscle Spasm) RF: 0 levothyroxine 88 mcg capsule 88 mcg PO DAILY RF: 0 metoprolol tartrate 50 mg tablet 50 mg PO BID RF: 0 nitroglycerin [Nitrostat] 0.4 mg tablet, sublingual 0.4 mg SUBLINGUAL Q5M PRN (Reason: Chest Pain) RF: 0 metformin 500 mg tablet 500 mg PO BID RF: 0 Trulicity 0.75 mg/0.5 mL pen injector 0.75 mg SUBCUT Q7D RF: 0 furosemide [Lasix] 40 mg tablet 40 mg PO QAM RF: 0 amlodipine 5 mg tablet 5 mg PO DAILY RF: 0 aspirin 81 mg tablet,delayed release (DR/EC) 81 mg PO DAILY RF: 0 hydralazine 25 mg tablet 25 mg PO BID RF: 0 (DME) BYRON MCKINLEY See Rx Instructions .Route .MEDSUPPLY Qty: 1 RF: 0 (DME) Elizabeth See Rx Instructions .Route .MEDSUPPLY Qty: 1 RF: 0 clopidogrel 75 mg tablet 75 mg PO DAILY Qty: 90 RF: 3 atorvastatin 40 mg tablet 40 mg PO DAILY Qty: 30 RF: 5 cyclobenzaprine 10 mg tablet 10 mg PO TID PRN (Reason: MUSCLE SPASMS) RF: 0 Discharge Orders: Discharge Order (Routine); Ordered 03/15/20 Ordered By: Rina Harris Referrals: Kp Montanez DO [Primary Care Provider] - Discharge Diet: Clear Liquid Discharge Activity: Increase activity as tolerated Activity Restrictions/Additional Instructions: Follow up with PCP on Saturday as scheduled. Coding Level of Care Code ED Chemical Process Project Engineer for Chg Fwd Exam Comprehensive
--- NOTE | 2020-03-15 10:43 | ECG_ITS ---
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
[2020-03-15] MEDS: diphenhydrAMINE 50 mg/mL SDV 1mL 25 MG IVP (10:59)
[2020-03-15] MEDS: pantoprazole 40 mg SDV IVP (11:00)
[2020-03-15] MEDS: sodium chloride 0.9% 500 ML IV ×2 (11:01→12:31)
[2020-03-15 11:13] LABS: Troponin(5th) Baseline 32 ng/L (0-15)
[2020-03-15 11:14] LABS: Creatine Phosphokinase 63 U/L (39-308)
--- NOTE | 2020-03-15 11:48 | CT_ITS ---
WS: [id number] Exam: CT abdomen pelvis wo con [id number] Date/Time of Exam: 03/15/2020 1:10 PM Reason For Exam: abd pain/blood in stool Technique: Axial contiguous CT images with coronal and sagital reformats. DLP: 1686.[address] scans at [facility] use at least one of these dose optimization techniques: automat ed exposure control; mA and/or kV adjustment per patient size (includes targeted exams where dose is matched to clinical indication); or iterative reconstruction. Findings: Compared to previous study 08/07/2019. Lower lung zones are clear. Triple vessel coronary artery calcifications noted. The liver, stomach, s pleen and pancreas appear normal. The gallbladder is surgically absent. The abdominal aorta is normal in caliber. Kidneys are unremarkable. Bilateral adrenal nodules are noted which are unchanged. Small bowel loops are not dilated. No free air. No lymphadenopathy. No sign of acute appendix. Minimal col onic diverticulosis. No signs of acute diverticulitis. Intact urinary bladder. No pelvic mass or toño opathy. Small amount of interloop free fluid in the pelvis. Moderately advanced atherosclerotic disea se of the abdominal aorta and major branches. Calcification of the seminal vesicles. No destructive b one lesions. No significant abdominal wall defect. CT/CT abdomen pelvis con [id number] IMPRESSION: 1. No mass, lymphadenopathy or acute finding. 2. Small amount of free interloop fluid in the pelvis. 3. Minimal colonic diverticulosis. No sign of acute diverticulitis. 4. Stable appearing bilateral adrenal nodules.
[2020-03-15 11:57] VITALS: RESP 18; O2SAT 98
[2020-03-15] MEDS: morphine 4 mg/mL SDV 1 mL 2 MG IVP (11:57)
[2020-03-15 12:57] LABS: Basophils # 0.1 10^3/uL (0.0-0.1); Basophils % 0.7 %; Eosinophils # 0.3 10^3/uL (0.0-0.8); Hematocrit 41.2 % (42.0-52.0); Hemoglobin 13.2 g/dL (11.7-16.6); Lymphocytes % 12.7 %; Mean Corpuscular Volume 90.5 fL (80-94); Mean Platelet Volume 9.9 fL (7.4-10.4); Monocytes # 0.9 10^3/uL (0.2-0.9); Monocytes % 5.6 %; Neutrophils # 12.27 10^3/uL (1.8-7.7); Neutrophils % 78.4 %; Nucleated Red Blood Cells % 0 %; Platelet Count 342 10^3/cmm (130-400); Red Blood Count 4.55 10^6/uL (4.1-5.3); Red Cell Distribution Width 15.2 % (12.1-15.1); White Blood Count 15.7 10^3/uL (4.0-10.0)
[2020-03-15 13:04] LABS: Alanine Aminotransferase 25 U/L (0-41); Albumin Level 3.9 g/dL (3.5-5.2); Alkaline Phosphatase 137 IU/L (40-130); Anion Gap 20.6 (5-19); Aspartate Amino Transferase 22 U/L (0-40); Blood Urea Nitrogen 53 mg/dL (6-20); Calcium 9.1 mg/dL (8.5-10.5); Carbon Dioxide 18 mmol/L (22-29); Chloride 99 mmol/L (98-107); Globulin 2.5 g/dL (1.3-4.6); Glomerular Filtration Rate 33.5 mL/min (90-130); Glucose 293 mg/dL (65-115); Osmolality Calculated 299 mOsm/kg (285-295); Potassium 5.6 mmol/L (3.5-5.1); Sodium 132 mmol/L (136-145); Total Bilirubin 0.6 mg/dL (0.15-1.2); Total Protein 6.4 g/dL (6.6-8.7)
[2020-03-15] MEDS: HYDROcodone-acetaminophen 5-325 mg Tablet 1 TAB PO (14:13)
[2020-03-15 14:22] LABS: Add Urine Microscopic? YES; Bilirubin Urine Neg (Negative); Blood Urine Neg (Negative); Glucose Urine UA Norm (Normal); Ketones Urine Negative (Negative); Leukocyte Esterase Urine Negative (Negative); Nitrate Urine Negative (Negative); Protein Urine Trace (Negative); Urine Appearance Clear (CLEAR); Urine Color Straw (Yellow); Urobilinogen Urine Norm (Negative); pH Urine 5 (5-7)
[2020-03-15 14:28] LABS: Troponin 5 2HR 24.39 ng/L (0-15)
[2020-03-15 14:30] LABS: Troponin 5 2HR Delta -7.61 ABS# (0-10)
[2020-03-15 14:33] LABS: Add Urine Culture? No; Bacteria Urine TRACE /hpf; Hyaline Casts Urine 0-4 /lpf; RBC Urine 0-4 /hpf (0-2); Squamous Epithelial Cell Urine 0-4 /hpf (0-5)
[2020-03-15 14:43] LABS: Anion Gap 15.8 (5-19); Blood Urea Nitrogen 54 mg/dL (6-20); Calcium 8.5 mg/dL (8.5-10.5); Carbon Dioxide 21 mmol/L (22-29); Chloride 102 mmol/L (98-107); Glomerular Filtration Rate 35.4 mL/min (90-130); Glucose 206 mg/dL (65-115); Osmolality Calculated 297 mOsm/kg (285-295); Potassium 5.8 mmol/L (3.5-5.1); Sodium 133 mmol/L (136-145)
[2020-03-15 15:09] VITALS: BP 115/79; PULSE 80; RESP 18; O2SAT 97
== END 2020-03-15 15:09 | disposition home or self-care (01) ==
PROVIDERS: Emergency Provider Nurse Practitioner Family; PCP Internal Medicine
DX: K52.9 Noninfective gastroenteritis and colitis, unspecified (principal); Z79.02 Long term (current) use of antithrombotics/antiplatelets; Z79.84 Long term (current) use of oral hypoglycemic drugs; Z79.82 Long term (current) use of aspirin; I11.0 Hypertensive heart disease with heart failure; E11.9 Type 2 diabetes mellitus without complications; I25.2 Old myocardial infarction; E78.5 Hyperlipidemia, unspecified; I25.110 Atherosclerotic heart disease of native coronary artery with unstable angina pectoris; I50.20 Unspecified systolic (congestive) heart failure
CPT/HCPCS: 12345; 74176; 80048; 80053; 81001; 82550; 84484; 85025; 93005; 96361; 96374; 96375; 99283; C9113; J1200; J1642; J2270; J7040

== ENCOUNTER 2020-03-18 04:10 | Inpatient (IN) | payer MEDICARE, MEDICAID, SELFPAY ==
[2020-03-18] VITALS (11 sets, daily range): BP systolic 105–146; BP diastolic 71–88; PULSE 66–82; RESP 16–22; TEMP 36.3–37.1; O2SAT 96–100; BMI 35.8
--- NOTE | 2020-03-18 04:18 | W.ED.GENADLT ---
HPI - General Adult General: Chief complaint: Abdominal Pain Stated complaint: n/v, diarrhea, headache Time Seen by Provider: 03/18/20 04:19 Source: patient Mode of arrival: ambulatory Limitations: no limitations History of Present Illness: HPI narrative: Mr. Queen is a 49-year-old male who comes in complaining of a week to 1 week and a half of intermittent stomach pains, right testicle pain, nausea vomiting and diarrhea. Patient does not believe he has had a fever. He has been seen in the urgent care twice for this, the ER twice for this and is also seen his PCP. States his symptoms continue to get worse and he feels dehydrated. Patient states he cannot keep water or anything down. Patient believes he may have had some blood in his stools possibly in his emesis. He is unaware of anything that makes his symptoms better or worse. He had a negative Covid test during this week. Associated symptoms: Reports nausea and vomiting; Deny chest pain, confusion, diaphoresis, dyspnea, headache(s), malaise, rash, palpitations or syncope Review of Systems Const: Denies: fever(s), chills, body aches, fatigue, malaise or diaphoresis Eyes: Denies: change in vision, blurry vision, photophobia, eye discomfort, eye discharge, eye redness or yellow eyes ENMT: Denies: throat pain, odynophagia, hoarseness, swelling of lips/tongue, ear or mastoid pain, ear discharge, change in hearing or nasal discharge Card: Denies: chest pain, palpitations, irregular heart rhythm, edema, lightheadedness, syncope, pre-syncope, dyspnea on exertion or orthopnea Resp: Denies: dyspnea, productive cough, non-productive cough, wheezing, hemoptysis or chest congestion GI: Reports: abdominal pain, nausea and vomiting; Denies: hematemesis, coffee ground emesis, heartburn, diarrhea, constipation, GI cramping, hematochezia or melena : Denies: flank pain, dysuria, urinary frequency, urinary urgency or hematuria Musc: Denies: neck pain, back pain, extremity pain, extremity swelling, joint pain, joint swelling, joint redness, joint warmth or joint stiffness Skin/Breast: Denies: rash, pruritus, erythema, skin pain or skin tenderness Neuro: Denies: headache(s), numbness in extremities, weakness in extremities, sensory changes, lack of coordination, difficulty walking, dizziness, vertigo, confusion, Slurred speech present or seizure-like activity Dewey/Lymph: Denies: easy bruising, easy bleeding, petechiae, purpura or enlarged lymph nodes All/Imm: Denies: urticaria, throat swelling, tongue swelling, facial swelling or acute wheezing PFSH ED PFSH: Medical History Anemia Atherosclerotic heart disease of [place] coronary artery with other forms of angina pectoris -hx of CAD with prior stenting of proximal LAD, LCx, RCA Benign essential hypertension with target blood pressure below 140/90 -VSS; continue to monitor -continue oral antihypertensives CAD (coronary artery disease) Cardiomyopathy Chest pain -With multiple prior presentations for the same and multiple coronary angiogram showing patent stents -Given continued chest pain, s/p coronary angiogram showing patent stents. Pre-medicated with steroids and benadryl due to contrast allergy -Troponins noted with no significant delta -No acute ischemic changes noted on EKG -Telemetry monitoring -VSS; continue to monitor -Equivocal nuclear stress testing in 08/2019 showing subtle area of ischemia in distribution of RCA -Cardiology evaluation appreciated -continue statin, ASA, Plavix, Imdur, BB; increase dose of imdur -MEETA CHF (congestive heart failure) Chronic anticoagulation Chronic kidney disease -baseline Cr appears to be around 1.5 -renally dose meds, avoid nephrotoxins -stable renal function particularly after cath; received IVF Chronic systolic heart failure -no evidence of acute exacerbation currently -continue diuretics -repeat limited Echo: EF=47%, diffuse LV hypokinesis, mildly increased LA size -BNP-1150 CKD (chronic kidney disease) Compartment syndrome Depression Diabetes -on ISS, accuchecks, hypoglycemia precautions; A1c-7.6 (08/2019) Foot drop, left H/O acute myocardial infarction H/O deep venous thrombosis Hyperlipidemia Hypertension Hypothyroidism Ischemic cardiomyopathy Obesity (BMI 30-39.9) Osteoarthritis of spine Port-A-Cath in place Subcutaneous mass of back Lipoma Systolic CHF Unstable angina pectoris Surgical History H/O colonoscopy 08/2015 H/O esophagogastroduodenoscopy 08/2015 H/O removal of testicle left H/O skin graft H/O vasectomy History of appendectomy History of coronary artery stent placement 5x History of excision of mass 06/08/2019: Subcutaneous mass on back History of inguinal hernia repair, bilateral 1999 History of removal of Port-a-Cath Hx of cholecystectomy Family History Grandfather Cancer skin cancer Parkinson disease Brother Hypertension Father Heart disease Mother Hypertension Stroke Aneurysm Grandmother Aneurysm Other Crohn disease Denies family history of Anesthesia complication Bleeding disorder Social History Smoking and tobacco status: never smoked Alcohol intake: former Former alcohol use details: Only holidays Lives independently: Yes Household members: significant other Marital status: Single Current occupational status: disabled History of recent travel: No Physical Exam Const: COMMON NORMALS: no acute distress, patient oriented x3, no limitations and alert GENERAL APPEARANCE: cooperative HENMT: COMMON NORMALS: normocephalic, atraumatic, external ears normal, EAC's normal and Normal external nose present HEAD & SCALP: normal to inspection, normocephalic and atraumatic FACE & SINUS: normal facial exam and face symmetric NOSE: Normal external nose present and Normal nares present EXTERNAL EAR: Yes external ears normal EXTERNAL AUDITORY CANAL: EAC's normal MOUTH: Normal oral and palatal mucosa present, lip normal and tongue normal Eye: COMMON NORMALS: Equal, round and reactive pupils present and conjunctivae normal GENERAL EYE: appearance normal, both eyes and all related structures ALIGNMENT: Yes alignment normal PERIORBITAL: periorbital findings normal EYELID: eyelids normal CONJUNCTIVA: Yes conjunctivae normal SCLERA: sclerae normal PUPIL: Yes Equal, round and reactive pupils present Neck/C-Spine: COMMON NORMALS: full ROM, no lymphadenopathy, supple, no meningeal signs and no JVD GENERAL: Yes normal visual inspection and Yes trachea midline Chest: COMMONS NORMALS: normal inspection of the chest and normal palpation of entire chest wall Resp: COMMON NORMALS: normal respiratory effort, No retractions, No use of accessory muscles and clear to auscultation bilaterally EFFORT & INSPECTION: Yes able to speak in complete sentences and Yes symmetric chest movement AUSCULTATION: clear to auscultation bilaterally, no crackles, no rales, no rhonchi and no wheezes Cardio: COMMON NORMALS: no JVD, regular rate, regular rhythm, S1 normal heart sound present and S2 normal heart sound present RATE: regular rate RHYTHM: regular rhythm HEART SOUNDS: S1 normal heart sound present, S2 normal heart sound present, no click, no gallops, no murmurs and no rubs GI: COMMON NORMALS: Soft to palpation and No hepatosplenomegaly present PALPATION: Yes Soft to palpation, No Tenderness to palpation present (GI), No Guarding due to palpation present (GI), No Rigid due to palpation, Yes No hepatosplenomegaly present, No Hernia present, No Palpable mass present and No Pulsatile mass present : COMMON NORMALS: Yes no CVA tenderness BLADDER/KIDNEY EXAM: Yes no CVA tenderness Back/Pelvis: COMMON NORMALS: no CVA tenderness, thoracic and lumbar spine normal to inspection, no thoracic nor lumbar tenderness and thoraco-lumbar ROM normal Extremity: COMMON NORMALS: normal to inspection, full ROM, capillary refill normal, no joint enlargement, no clubbing, cyanosis or edema and no calf tenderness Neuro: COMMON NORMALS: patient oriented x3, CN's II-XII intact bilaterally, moves all extremities, no focal motor deficits and no sensory deficits noted SENSORIUM/ORIENTATION: Yes alert MENINGEAL SIGNS: Yes no meningeal signs SPEECH: speech normal Psych: COMMON NORMALS: mental status grossly normal, Normal thought process present, cooperative, normal affect, speech normal and activity/motor behavior normal SPEECH: Yes normal speech THOUGHT PROCESS: Normal thought process present Skin: COMMON NORMALS: no rashes or lesions noted, turgor normal, no jaundice, no petechiae and no mottling GENERAL SKIN EXAM: no rashes or lesions noted and turgor normal Course Vital Signs: Vital signs: Vital Signs Temperature 97.5 F L 03/18/20 04:17 Pulse Rate 71 03/18/20 05:31 Respiratory Rate 16 03/18/20 05:31 Blood Pressure 143/88 03/18/20 05:31 Pulse Oximetry 100 03/18/20 05:31 MDM - General Adult Lab Data: Labs: Lab Results 03/18/20 03/18/20 03/18/20 Range/Units 04:40 04:40 04:40 WBC 8.3 (4.0-10.0) 10^3/ uL RBC 3.83 L (4.1-5.3) 10^6/u L Hgb 11.1 L (11.7-16.6) g/dL Hct 34.6 L (42.0-52.0) % MCV 90.3 (80-94) fL MCH 29.0 (28.0-34.0) pg MCHC 32.1 (30.0-36.0) g/dL RDW 14.8 (12.1-15.1) % Plt Count 273 (130-400) 10^3/c mm MPV 9.2 (7.4-10.4) fL Neut % (Auto) 66.2 % Lymph % (Auto) 22.6 % [place] % (Auto) 8.3 % Eos % (Auto) 1.8 % Baso % (Auto) 0.6 % Neut # (Auto) 5.50 (1.8-7.7) 10^3/u L Lymph # (Auto) 1.9 (0.8-4.8) 10^3/u L [place] # (Auto) 0.7 (0.2-0.9) 10^3/u L Eos # (Auto) 0.2 (0.0-0.8) 10^3/u L Baso # (Auto) 0.1 (0.0-0.1) 10^3/u L Nucleated RBC % (a uto) 0 % Nucleated RBCs # 0.0 /100WBC Sodium 131 L (136-145) mmol/L Potassium 4.4 (3.5-5.1) mmol/L Chloride 97 L (98-107) mmol/L Carbon Dioxide 22 (22-29) mmol/L Anion Gap 16.4 (5-19) BUN 35 H (6-20) mg/dL Creatinine 2.0 H (0.7-1.2) mg/dL GFR Calculation 35.4 L (90-130) mL/min Glucose 329 H (65-115) mg/dL Calculated Osmolal ity 293 (285-295) mOsm/k g Lactic Acid 1.2 (0.5-2.2) mmol/L Calcium 8.5 (8.5-10.5) mg/dL Magnesium 1.8 (1.7-2.3) mg/dL Total Bilirubin 0.5 (0.15-1.2) mg/dL AST 17 (0-40) U/L ALT 22 (0-41) U/L Alkaline Phosphata se 125 (40-130) IU/L Troponin T Baselin e (0-15) ng/L Total Protein 6.2 L (6.6-8.7) g/dL Albumin 3.8 (3.5-5.2) g/dL Globulin 2.4 (1.3-4.6) g/dL Lipase 48 (13-60) U/L Urine Color (Yellow) Urine Appearance (CLEAR) Urine pH (5-7) Ur Specific Gravit y (1.005-1.030) Urine Protein (Negative) Urine Glucose (UA) (Normal) Urine Ketones (Negative) Urine Blood (Negative) Urine Nitrate (Negative) Urine Bilirubin (Negative) Urine Urobilinogen (Negative) mg/dL Ur Leukocyte Carmen ase (Negative) 03/18/20 03/18/20 Range/Units 04:40 05:28 WBC (4.0-10.0) 10^3/ uL RBC (4.1-5.3) 10^6/u L Hgb (11.7-16.6) g/dL Hct (42.0-52.0) % MCV (80-94) fL MCH (28.0-34.0) pg MCHC (30.0-36.0) g/dL RDW (12.1-15.1) % Plt Count (130-400) 10^3/c mm MPV (7.4-10.4) fL Neut % (Auto) % Lymph % (Auto) % [place] % (Auto) % Eos % (Auto) % Baso % (Auto) % Neut # (Auto) (1.8-7.7) 10^3/u L Lymph # (Auto) (0.8-4.8) 10^3/u L [place] # (Auto) (0.2-0.9) 10^3/u L Eos # (Auto) (0.0-0.8) 10^3/u L Baso # (Auto) (0.0-0.1) 10^3/u L Nucleated RBC % (a uto) % Nucleated RBCs # /100WBC Sodium (136-145) mmol/L Potassium (3.5-5.1) mmol/L Chloride (98-107) mmol/L Carbon Dioxide (22-29) mmol/L Anion Gap (5-19) BUN (6-20) mg/dL Creatinine (0.7-1.2) mg/dL GFR Calculation (90-130) mL/min Glucose (65-115) mg/dL Calculated Osmolal ity (285-295) mOsm/k g Lactic Acid (0.5-2.2) mmol/L Calcium (8.5-10.5) mg/dL Magnesium (1.7-2.3) mg/dL Total Bilirubin (0.15-1.2) mg/dL AST (0-40) U/L ALT (0-41) U/L Alkaline Phosphata se (40-130) IU/L Troponin T Baselin e 28 H (0-15) ng/L Total Protein (6.6-8.7) g/dL Albumin (3.5-5.2) g/dL Globulin (1.3-4.6) g/dL Lipase (13-60) U/L Urine Color Yellow (Yellow) Urine Appearance Clear (CLEAR) Urine pH 5.0 (5-7) Ur Specific Gravit y 1.005 (1.005-1.030) Urine Protein Neg (Negative) Urine Glucose (UA) 1+ (Normal) Urine Ketones Negative (Negative) Urine Blood Neg (Negative) Urine Nitrate Negative (Negative) Urine Bilirubin Neg (Negative) Urine Urobilinogen Norm (Negative) mg/dL Ur Leukocyte Carmen ase Negative (Negative) Imaging Data^: US Scrotum and Contents: My impression: Tech interpretation -right testicle unremarkable. No torsion. No hydrocele. EKG Data^: EKG 1: Attestation: I personally reviewed and interpreted this EKG as follows: EKG interpretation date: 03/18/20 EKG interpretation time: 05:29 Interpretation: Normal sinus rhythm at 68 beats a minute, no blocks, normal intervals, no acute ST or T wave changes. Similar to previous. Discharge Plan Discharge Prescriptions: No Action isosorbide mononitrate 30 mg tablet extended release 24 hr 30 mg PO BID RF: 0 (DME) diabetic shoes Qty: 1 RF: 0 promethazine 25 mg tablet 25 mg PO Q6H PRN (Reason: Nausea And Vomiting) RF: 0 multivitamin [Daily Multi-Vitamin] Tablet 1 tab PO QAM RF: 0 citalopram 10 mg tablet 20 mg PO DAILY RF: 0 methocarbamol 750 mg tablet 750 mg PO TID PRN (Reason: Muscle Spasm) RF: 0 levothyroxine 88 mcg capsule 88 mcg PO DAILY RF: 0 metoprolol tartrate 50 mg tablet 50 mg PO BID RF: 0 nitroglycerin [Nitrostat] 0.4 mg tablet, sublingual 0.4 mg SUBLINGUAL Q5M PRN (Reason: Chest Pain) RF: 0 metformin 500 mg tablet 500 mg PO BID RF: 0 Trulicity 0.75 mg/0.5 mL pen injector 0.75 mg SUBCUT Q7D RF: 0 furosemide [Lasix] 40 mg tablet 40 mg PO QAM RF: 0 amlodipine 5 mg tablet 5 mg PO DAILY RF: 0 aspirin 81 mg tablet,delayed release (DR/EC) 81 mg PO DAILY RF: 0 hydralazine 25 mg tablet 25 mg PO BID RF: 0 (DME) BYRON MCKINLEY See Rx Instructions .Route .MEDSUPPLY Qty: 1 RF: 0 (DME) Elizabeth See Rx Instructions .Route .MEDSUPPLY Qty: 1 RF: 0 clopidogrel 75 mg tablet 75 mg PO DAILY Qty: 90 RF: 3 atorvastatin 40 mg tablet 40 mg PO DAILY Qty: 30 RF: 5 cyclobenzaprine 10 mg tablet 10 mg PO TID PRN (Reason: MUSCLE SPASMS) RF: 0 promethazine 25 mg tablet 25 mg PO TID PRN (Reason: nausea and vomiting) Qty: 20 RF: 0 Coding Level of Care Code ED 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
--- NOTE | 2020-03-18 04:23 | US_ITS ---
WS: [id number] TESTICULAR ULTRASOUND HISTORY: Testicle pain COMPARISON: 08/07/2019 TECHNIQUE: Real-time and color Doppler imaging or utilized to perform a testicular ultrasound. Right testicle: 4.3 cm x 2.3 cm x 1.7 cm. Normal size and echogenicity. No mass or torsion. Normal color Doppler is present throughout. Systolic and diastolic velocities are both present. No significant hydrocele. Mild RIGHT varicocele. Right epididymis: Normal epididymis with no increased vascularity. Prior LEFT orchiectomy. US/US scrotum [id number] IMPRESSION: 1. Prior LEFT orchiectomy. 2. Normal RIGHT testicle with no mass.
[2020-03-18] MEDS: morphine 4 mg/mL SDV 1 mL IVP ×2 (04:43→07:30)
[2020-03-18] MEDS: sodium chloride 0.9% 1,000 ML 999 ML IV (04:43)
--- NOTE | 2020-03-18 04:55 | ECG_ITS ---
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 hospitalQderoPateo Communicationsmercy [facility].[employer]/store/NU/[id number] f
--- NOTE | 2020-03-18 04:55 | CTR_ITS ---
PROCEDURE INFORMATION: Exam: CT Abdomen And Pelvis Without Contrast Exam date and time: 03/18/2020 5:57 AM Age: 49 years old Clinical indication: Abdominal pain; Prior surgery; Surgery type: Gb. Appy. Hernia; Patient HX: Generalized abd pain TECHNIQUE: Imaging protocol: Computed tomography of the abdomen and pelvis without contrast. Radiation optimization: All CT scans at this facility use at least one of these dose optimization techniques: automated exposure control; mA and/or kV adjustment per patient size (includes targeted exams where dose is matched to clinical indication); or iterative reconstruction. COMPARISON: CT abdomen pelvis wo con [id number] 03/15/2020 1:08 PM RADIATION DOSE METRICS: Total DLP (mGy-cm): 1673.52 FINDINGS: Detailed evaluation of the abdominal and pelvic viscera is somewhat limited in the absence of intravenous contrast. Inferior thorax: Mild interstitial prominence and parenchymal stranding. Coronary artery calcification. Median sternotomy. Termination of central venous catheter at the cavoatrial junction. Liver: No focal hepatic mass. Gallbladder and bile ducts: Status post cholecystectomy. Pancreas: No pancreatic mass or ductal dilatation. Spleen: Splenic granuloma. Adrenal glands: Stable adrenal nodularity. Kidneys and ureters: Renal atrophy and prominent renal vascular calcification. Bilateral infiltration of perinephric fat. Stomach and bowel: No significant small bowel dilatation. Diverticula, without pericolonic inflammation. Appendix: No acute appendicitis. Intraperitoneal space: No significant free fluid. Vasculature: Prominent vascular calcification. No abdominal aortic aneurysm. Lymph nodes: Subcentimeter lymph nodes. Urinary bladder: Bladder dilatation. Reproductive: Prostate and vas deferens calcification. Bones/joints: Degenerative change and Schmorl's nodes. Soft tissues: Injection granulomata. CT/CT abdomen pelvis wo con [id number] IMPRESSION: 1. No acute inflammatory process in the visualized abdomen or pelvis. 2. Additional findings as described above. Radiation Dose CTDIVOL = (mGy): DLP = 1673.52 (mGy-cm)
[2020-03-18 05:01] LABS: Basophils # 0.1 10^3/uL (0.0-0.1); Basophils % 0.6 %; Eosinophils # 0.2 10^3/uL (0.0-0.8); Eosinophils % 1.8 %; Hematocrit 34.6 % (42.0-52.0); Hemoglobin 11.1 g/dL (11.7-16.6); Lymphocytes # 1.9 10^3/uL (0.8-4.8); Lymphocytes % 22.6 %; Mean Corpuscular HGB Conc 32.1 g/dL (30.0-36.0); Mean Corpuscular Volume 90.3 fL (80-94); Mean Platelet Volume 9.2 fL (7.4-10.4); Monocytes # 0.7 10^3/uL (0.2-0.9); Monocytes % 8.3 %; Neutrophils % 66.2 %; Nucleated Red Blood Cells % 0 %; Platelet Count 273 10^3/cmm (130-400); Red Blood Count 3.83 10^6/uL (4.1-5.3); Red Cell Distribution Width 14.8 % (12.1-15.1); White Blood Count 8.3 10^3/uL (4.0-10.0)
--- NOTE | 2020-03-18 05:10 | PC.NURSE ---
ultrasound in room
[2020-03-18 05:16] LABS: Alanine Aminotransferase 22 U/L (0-41); Albumin Level 3.8 g/dL (3.5-5.2); Alkaline Phosphatase 125 IU/L (40-130); Anion Gap 16.4 (5-19); Aspartate Amino Transferase 17 U/L (0-40); Blood Urea Nitrogen 35 mg/dL (6-20); Calcium 8.5 mg/dL (8.5-10.5); Carbon Dioxide 22 mmol/L (22-29); Chloride 97 mmol/L (98-107); Globulin 2.4 g/dL (1.3-4.6); Glomerular Filtration Rate 35.4 mL/min (90-130); Glucose 329 mg/dL (65-115); Lipase 48 U/L (13-60); Magnesium 1.8 mg/dL (1.7-2.3); Osmolality Calculated 293 mOsm/kg (285-295); Potassium 4.4 mmol/L (3.5-5.1); Sodium 131 mmol/L (136-145); Total Bilirubin 0.5 mg/dL (0.15-1.2); Total Protein 6.2 g/dL (6.6-8.7)
[2020-03-18 05:18] LABS: Lactic Sepsis W/Reflex 1.2 mmol/L (0.5-2.2)
--- NOTE | 2020-03-18 05:22 | PC.NURSE ---
ultrasound out of room
[2020-03-18 05:34] LABS: Add Urine Microscopic? NO
[2020-03-18 05:36] LABS: Troponin(5th) Baseline 28 ng/L (0-15)
[2020-03-18 06:01] LABS: Bilirubin Urine Neg (Negative); Blood Urine Neg (Negative); Glucose Urine UA 1+ (Normal); Ketones Urine Negative (Negative); Leukocyte Esterase Urine Negative (Negative); Nitrate Urine Negative (Negative); Protein Urine Neg (Negative); Specific Gravity, Urine 1.005 (1.005-1.030); Urine Appearance Clear (CLEAR); Urine Color Yellow (Yellow); Urobilinogen Urine Norm (Negative)
--- NOTE | 2020-03-18 06:55 | ECG_ITS ---
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
[2020-03-18 07:17] LABS: Troponin 5 2HR 22.84 ng/L (0-15)
[2020-03-18 07:22] LABS: Troponin 5 2HR Delta -5.16 ABS# (0-10)
[2020-03-18] MEDS: promethazine 25 mg Tablet PO (07:29)
[2020-03-18] MEDS: sodium chlor 0.45% +KCl 20 mEq 20 MEQ/1,000 ML BAG 100 MEQ IV (07:35)
[2020-03-18 08:39] LABS: Glucose Point of Care 214 mg/dL (70-110)
--- NOTE | 2020-03-18 08:58 | PC.NURSE ---
pt arrived on unit at 0518
--- NOTE | 2020-03-18 10:52 | P.HP_ITS ---
Providers/Chief Complaint Admitting Physician: Estefany Santos DO Primary Care Provider: Kp Montanez DO Chief Complaint: n/v, diarrhea, headache History of Present Illness Rei Queen II is a 49 year old male with a past medical history of coronary artery disease and diabetes that presented to the emergency department for intractable nausea vomiting and diarrhea. Patient stated that he will have sudden twinges of abdominal pain across his abdomen, no specific location, waxes and wanes. Reports that any food seems to make it worse recently, no specific foods. Patient reported diarrhea, only drinking bottled water. No one else sick in the home. No fevers. Patient reports being taken off of his Metformin recently due to concern for it contributing to his diarrhea. Denies any chest pains or shortness of breath, no other recent hospitalizations, no other adj ustments to medications other than those mentioned. Was seen and evaluated in the emergency department due to concern for intractable nausea vomiting he was admitted for further evaluation and treatm ent. Review of Systems Const: Denies: fever(s) or chills Eyes: Denies: change in vision ENMT: Denies: nasal congestion Card: Denies: chest pain, palpitations or edema Resp: Denies: dyspnea, productive cough or hemoptysis GI: Reports: abdominal pain, nausea and diarrhea; Denies: vomiting, constipation, hematochezia or melena : Denies: dysuria or hematuria Musc: Denies: extremity pain or muscle cramps Skin/Breast: Denies: rash or new lesions Neuro: Denies: headache(s) or dizziness Psych: Denies: anxiety or depression Endo: Denies: polyuria or hot flashes Dewey/Lymph: Denies: easy bruising or easy bleeding Medications/Allergies Home Medications Medication Instructions Recorded Confirmed Last Taken Type amlodipine 5 mg tablet 5 mg PO DAILY tab 06/01/19 03/18/20 03/18/20 History aspirin 81 mg tablet,delayed 81 mg PO DAILY 06/01/19 03/18/20 03/18/20 History release dulaglutide 0.75 mg/0.5 mL 0.75 mg SUBCUT Q7D 06/01/19 03/18/20 03/11/20 History subcutaneous pen injector furosemide 40 mg tablet 40 mg PO QAM 06/01/19 03/18/20 03/18/20 History levothyroxine 88 mcg capsule 88 mcg PO DAILY 06/01/19 03/18/20 03/18/20 History metformin 500 mg tablet 500 mg PO BID 06/01/19 03/18/20 03/15/20 History methocarbamol 750 mg tablet 750 mg PO TID PRN 06/01/19 03/18/20 01/06/20 History metoprolol tartrate 50 mg tablet 50 mg PO BID 06/01/19 03/18/20 03/18/20 History multivitamin 1 tab PO QAM 06/01/19 03/18/20 03/17/20 History nitroglycerin 0.4 mg sublingual 0.4 mg SUBLINGUAL Q5M PRN 06/01/19 03/18/20 09/10/19 History tablet diabetic shoes #1 ea 06/09/19 03/18/20 07/06/19 Rx clopidogrel 75 mg tablet 75 mg PO DAILY #90 tab 08/14/19 03/18/20 03/18/20 Rx atorvastatin 40 mg tablet 40 mg PO DAILY #30 tab 10/07/19 03/18/20 03/18/20 Rx citalopram 10 mg tablet 20 mg PO DAILY tab 10/27/19 03/18/20 03/17/20 History cyclobenzaprine 10 mg PO TID PRN 01/07/20 03/18/20 03/17/20 History isosorbide mononitrate 30 mg 30 mg PO BID tab 01/14/20 03/18/20 03/18/20 History tablet,extended release 24 hr CAM WALKER #1 ea 01/28/20 03/18/20 Unknown Rx [place] #1 ea 01/28/20 03/18/20 Unknown Rx promethazine 25 mg PO TID PRN #20 tab 03/15/20 03/18/20 03/18/20 Rx Allergies Allergy/AdvReac Type Severity Reaction Status Date / Time Sulfa (Sulfonamide Allergy Severe ALGY-Difficulty Verified 03/15/20 10:22 Antibiotics) Breathing codeine Allergy ALGY-Anaphy Verified 03/15/20 10:22 laxis haloperidol [From Haldol] Allergy ADR-Irritab Verified 03/15/20 10:22 le Iodinated Contrast Media Allergy ALGY-Difficulty Verified 03/15/20 10:22 Breathing iodine Allergy ALGY-Difficulty Verified 03/15/20 10:22 Breathing ketorolac Allergy ADR-Nausea Verified 03/15/20 10:22 metoclopramide [From Reglan] Allergy ALGY-Difficulty Verified 03/15/20 10:22 Breathing nalbuphine [From Nubain] Allergy ADR-Diarrhe Verified 03/15/20 10:22 a naproxen [From Naprosyn] Allergy ADR-Vomitin Verified 03/15/20 10:22 g ondansetron [From Zofran] Allergy ADR-Abdominal Verified 03/15/20 10:22 Pain prochlorperazine Allergy ADR-Irritab Verified 03/15/20 10:22 [From Compazine] le ranolazine [From Ranexa] Allergy ALGY-Difficulty Verified 03/15/20 10:22 Swallowing PFSH Acute PFSH: Medical History (Updated 03/18/20 @ 11:00 by Estefany Santos DO) Anemia Atherosclerotic heart disease of [place] coronary artery with other forms of angina pectoris -hx of CAD with prior stenting of proximal LAD, LCx, RCA Benign essential hypertension with target blood pressure below 140/90 CAD (coronary artery disease) Cardiomyopathy CHF (congestive heart failure) Chronic anticoagulation Chronic kidney disease -baseline Cr appears to be around 1.5 Chronic systolic heart failure EF=47%, diffuse LV hypokinesis, mildly increased LA size CKD (chronic kidney disease) Compartment syndrome Depression Diabetes -on ISS, accuchecks, hypoglycemia precautions; A1c-7.6 (08/2019) Foot drop, left H/O acute myocardial infarction H/O deep venous thrombosis Hyperlipidemia Hypertension Hypothyroidism Ischemic cardiomyopathy Obesity (BMI 30-39.9) Osteoarthritis of spine Port-A-Cath in place Subcutaneous mass of back Lipoma Systolic CHF Unstable angina pectoris Surgical History H/O colonoscopy 08/2015 H/O esophagogastroduodenoscopy 08/2015 H/O removal of testicle left H/O skin graft H/O vasectomy History of appendectomy History of coronary artery stent placement 5x History of excision of mass 06/08/2019: Subcutaneous mass on back History of inguinal hernia repair, bilateral 2000 History of removal of Port-a-Cath Hx of cholecystectomy Family History Grandfather Cancer skin cancer Parkinson disease Brother Hypertension Father Heart disease Mother Hypertension Stroke Aneurysm Grandmother Aneurysm Other Crohn disease Denies family history of Anesthesia complication Bleeding disorder Social History Smoking and tobacco status: never smoked Alcohol intake: former Former alcohol use details: Only holidays Lives independently: Yes Household members: significant other Marital status: Single Current occupational status: disabled History of recent travel: No Vitals/I&O/Wt Last Vital Signs Temp 97.4 F L 03/18/20 08:55 Pulse 70 03/18/20 08:55 Resp 18 03/18/20 08:55 BP 111/74 03/18/20 08:55 Pulse Ox 97 03/18/20 08:55 Weight last 48 hrs Weight 100.698 kg Physical Exam Const: COMMON NORMALS: patient oriented x3 and alert GENERAL APPEARANCE: cooperative ORIENTATION/CONSCIOUSNESS: Yes awake, Yes oriented to person, Yes oriented to place and Yes oriented to time HENMT: COMMON NORMALS: normocephalic and atraumatic HEAD & SCALP: normocephalic and atraumatic Eye: COMMON NORMALS: Equal, round and reactive pupils present PUPIL: Yes Equal, round and reactive pupils present Neck/C-Spine: COMMON NORMALS: supple GENERAL: Yes normal visual inspection Resp: COMMON NORMALS: normal respiratory effort and clear to auscultation bilaterally EFFORT & INSPECTION: Yes able to speak in complete sentences AUSCULTATION: clear to auscultation bilaterally, no rhonchi and no wheezes Cardio: COMMON NORMALS: regular rate, regular rhythm and No murmurs present (Cardio) RATE: regular rate RHYTHM: regular rhythm GI: COMMON NORMALS: Soft to palpation and non-tender INSPECTION: No abdominal distension AUSCULTATION: Yes normoactive bowel sounds PALPATION: Yes Soft to palpation Extremity: COMMON NORMALS: no clubbing, cyanosis or edema and no calf tenderness NARRATIVE EXTREMITY EXAM: Status post bilateral fasciotomies, scars well-healed Neuro: COMMON NORMALS: patient oriented x3, CN's II-XII intact bilaterally, moves all extremities and no focal motor deficits SENSORIUM/ORIENTATION: Yes alert, Yes oriented to person, Yes oriented to place and Yes oriented to time SPEECH: speech normal Psych: COMMON NORMALS: mental status grossly normal and cooperative Skin: COMMON NORMALS: no rashes or lesions noted GENERAL SKIN EXAM: no rashes or lesions noted Data : 03/18/20 04:40 03/18/20 04:40 US: I personally reviewed and interpreted this imaging study as follows: Radiologist's impression: IMPRESSION: 1. Prior LEFT orchiectomy. 2. Normal RIGHT testicle with no mass. CT Abd/Pel: I personally reviewed and interpreted this imaging study as follows: Radiologist's impression: FINDINGS: Detailed evaluation of the abdominal and pelvic viscera is somewhat limited in the absence of intravenous contrast. Inferior thorax: Mild interstitial prominence and parenchymal stranding. Coronary artery calcification. Median sternotomy. Termination of central venous catheter at the cavoatrial junction. Liver: No focal hepatic mass. Gallbladder and bile ducts: Status post cholecystectomy. Pancreas: No pancreatic mass or ductal dilatation. Spleen: Splenic granuloma. Adrenal glands: Stable adrenal nodularity. Kidneys and ureters: Renal atrophy and prominent renal vascular calcification. Bilateral infiltration of perinephric fat. Stomach and bowel: No significant small bowel dilatation. Diverticula, without pericolonic inflammation. Appendix: No acute appendicitis. Intraperitoneal space: No significant free fluid. Vasculature: Prominent vascular calcification. No abdominal aortic aneurysm. Lymph nodes: Subcentimeter lymph nodes. Urinary bladder: Bladder dilatation. Reproductive: Prostate and vas deferens calcification. Bones/joints: Degenerative change and Schmorl's nodes. Soft tissues: Injection granulomata. CT/CT abdomen pelvis wo con [id number] IMPRESSION: 1. No acute inflammatory process in the visualized abdomen or pelvis. 2. Additional findings as described above. A&P Assessment and plan (1) Vomiting: Reports intractable nausea vomiting diarrhea Observation Gentle IV fluids Antiemetics Stool studies ordered and pending COVID-19 ordered and pending Continue monitoring on telemetry, serial EKG and troponin Status: Acute Qualifiers: Nausea presence: unspecified Vomiting Intractability: unspecified Vomiting type: unspecified Qualified Code(s): R11.10 - Vomiting, unspecified (2) Gastroenteritis: Continue with supportive care Testing for COVID-19 N.[address] for bowel rest CT scan as noted above, no acute abdominal process Status: Acute (3) Chronic renal insufficiency: Baseline creatinine around 1.5, give gentle IV fluids due to concern for dehydration and recheck labs in the morning Status: Acute Qualifiers: Chronic kidney disease stage: unspecified stage Qualified Code(s): N18.9 - Chronic kidney disease, unspecified (4) Systolic CHF: Without acute exacerbation, currently slightly dehydrated, gentle IV fluids Strict intake and output as well as daily weights Status: Acute Additional A&P Information Diabetes mellitus type 2: Moderate dose sliding scale insulin, Metformin recently held due to concern for contributing to nausea and diarrhea DVT ppx: SCDs Diet: NPO Attestations Medical Necessity Statement*: Observation due to intractable nausea vomiting and diarrhea, expected stay less than 2 midnights. Coding Level of Care Code Acute [employer] for Chg Fwd Diagnoses Vomiting R11.10 Nausea presence: unspecified Vomiting Intractability: unspecified Vomiting type: unspecified Gastroenteritis K52.9 Chronic renal insufficiency N18.9 Chronic kidney disease stage: unspecified stage Systolic CHF I50.20
[2020-03-18 11:25] LABS: SARS Covid-2 Antigen Negative (Negative); Troponin 5 6HR 24.38 ng/L (0-15)
[2020-03-18 11:40] LABS: Troponin 5 6HR Delta -3.62 ng/L (0-12)
[2020-03-18] MEDS: sodium chloride 0.9% 1,000 ML 50 ML IV (12:02)
[2020-03-18 12:27] LABS: Glucose Point of Care 196 mg/dL (70-110)
[2020-03-18] MEDS: promethazine 25 mg Tablet 12.5 MG PO (13:56)
[2020-03-18] MEDS: acetaminophen 325 mg Tablet 650 MG PO (13:56)
[2020-03-18] MEDS: TRAMadol 50 mg Tablet PO ×2 (16:44→22:03)
[2020-03-18 17:57] LABS: Glucose Point of Care 168 mg/dL (70-110)
[2020-03-18] MEDS: pantoprazole DR 40 mg Tablet PO (18:03)
[2020-03-18] MEDS: isosorbide mononitrate ER 30 mg Tablet PO (18:03)
[2020-03-18] MEDS: metoprolol tartrate 50 mg Tablet PO (18:03)
--- NOTE | 2020-03-18 18:29 | PC.NURSE ---
Pt has had no vomiting since coming to this floor on my shift. pt has had nausea which was controlled with phenegran, pain has been controlled with tramadol as well. pt has had no other complaints at this time.
[2020-03-18 20:38] LABS: Glucose Point of Care 147 mg/dL (70-110)
--- NOTE | 2020-03-18 21:04 | PC.NURSE ---
Notified Dr. Joe of patient's request for Benadryl due to having a difficult time falling asleep. Orders received.
[2020-03-18] MEDS: diphenhydrAMINE 50 mg Capsule PO (22:05)
[2020-03-19] VITALS (15 sets, daily range): BP systolic 100–137; BP diastolic 65–87; PULSE 68–94; RESP 13–18; TEMP 36.3–37.2; O2SAT 92–98
[2020-03-19] MEDS: nitroglycerin 0.4 mg sublingual Tablet SUBLINGUAL ×7 (01:14→22:59)
--- NOTE | 2020-03-19 01:37 | ECG_ITS ---
[facility] Test Date: 2020-03-19 Pat Name: Rei Queen Department: Room: 272 Gender: Male [employer]: : 1970 Requested By: Trenton Joe Order Number: [id number] Becky MD: SALIMA HYDE Measurements Intervals [place] Rate: 71 P: 5 MN: 184 QRS: 0 QRSD: 102 T: 88 QT: 381 QTc: 414 Interpretive Statements SINUS RHYTHM ANTERIOR MYOCARDIAL INFARCTION [40+ ms Q WAVE AND/OR ST/T ABNORMALITY IN V3/V4], PROBABLY OLD INTERPRETATION BASED ON A DEFAULT AGE OF 40 YEARS Compared to ECG 03/18/2020 06:34:21 No significant changes Electronically Signed On 03-19-2020 18:27:29 CDT by SALIMA HYDE [email or web address]
[2020-03-19] MEDS: promethazine 25 mg/mL SDV 1 mL 12.5 MG IM ×2 (02:30→16:23)
--- NOTE | 2020-03-19 02:37 | PC.NURSE ---
Chest Pain Patient hit call button to notify nurse of chest pain. He rates the chest pain 7/10, descries it as pressure, like someone is sitting on his chest. He states it radiates to his jaw, neck, down his arm, and to his fingers. He reports having a history of AR. Patient reports feeling somewhat short of breath. Vital signs unremarkable. 2L of oxygen applied. Notified Dr. Joe. Orders received for EKG. Nitro administered at 0114, patient still rated pain 7/10. Second dose of Nitro administered at 0127. Patient reported improvement in pain after second dose. Rates it 3/10. Patient the reported onset of nauesa. Declines po phenergen. Order received for IM phenergen. Will monitor.
--- NOTE | 2020-03-19 02:41 | PC.NURSE ---
Patient requests additional dose of nitro for persistent chest pain, rates it 3/. 3rd dose administered at 0233.
[2020-03-19 05:16] LABS: Glucose Point of Care 139 mg/dL (70-110)
[2020-03-19] MEDS: TRAMadol 50 mg Tablet PO ×2 (06:11→20:35)
[2020-03-19] MEDS: sodium chloride 0.9% 1,000 ML 50 ML IV (06:12)
[2020-03-19 06:25] LABS: Glucose Point of Care 107 mg/dL (70-110)
[2020-03-19 06:45] LABS: Blood Urea Nitrogen 30 mg/dL (6-20); Calcium 8.7 mg/dL (8.5-10.5); Carbon Dioxide 24 mmol/L (22-29); Chloride 107 mmol/L (98-107); Glomerular Filtration Rate 37.6 mL/min (90-130); Glucose 111 mg/dL (65-115); Osmolality Calculated 297 mOsm/kg (285-295); Sodium 140 mmol/L (136-145)
--- NOTE | 2020-03-19 07:15 | PC.NURSE ---
Patient called nurse to report chest pain 07/27. Vital signs unremarkable. Administered tramadol. Notified Dr. Joe. 1x order of morphine 2mg IVP received.
[2020-03-19] MEDS: levothyroxine 88 mcg Tablet PO (08:29)
[2020-03-19] MEDS: aspirin 81 mg EC Tablet PO (08:29)
[2020-03-19] MEDS: cyclobenzaprine 10 mg Tablet PO (08:30)
[2020-03-19] MEDS: pantoprazole DR 40 mg Tablet PO (08:30)
[2020-03-19] MEDS: isosorbide mononitrate ER 30 mg Tablet PO ×2 (08:30→18:00)
[2020-03-19] MEDS: amlodipine 5 mg Tablet PO (08:30)
[2020-03-19] MEDS: citalopram 20 mg Tablet PO (08:30)
[2020-03-19] MEDS: atorvastatin 40 mg Tablet PO (08:30)
[2020-03-19] MEDS: clopidogrel 75 mg Tablet PO (08:30)
[2020-03-19] MEDS: metoprolol tartrate 50 mg Tablet PO ×2 (08:30→18:00)
[2020-03-19 11:36] LABS: Glucose Point of Care 127 mg/dL (70-110)
[2020-03-19] MEDS: pantoprazole 40 mg SDV IVP (12:46)
[2020-03-19 12:52] LABS: Troponin T (5th) Once 31 ng/L (0-15)
--- NOTE | 2020-03-19 13:12 | PM.CONSULT ---
Providers/Reason For Consult Consulting Physican/Specialty*: Cardiology Reason for Consult*: Chest pain Attending Physician: Rafiq Mariee MD Primary Care Provider: Kp Montanez DO History of Present Illness History of Present Illness Rei Queen II is a 49 year old male's medical history significant for coronary artery disease status post stents hypertension hyperlipidemia congestive heart failure diabetes mellitus and CKD was admitted with nausea vomiting diarrhea and chest pain. According to the patient he has been having chest pain for the last few days off-and-on relieved with nitroglycerin. Creatinine was also noted to be worsening and today is 1.9. Patient is on a Covid ruled out list therefore I have not examined him history and physical examination as per Dr. Santos note and Dr. Romero's. Initial cardiac markers remained stable. He has been admitted with chest pain in the last previous occasions with chest pain thought to be nonspecific. He had angiogram this June which showed patent previously placed stents. Review of Systems Const: Denies: fever(s), chills, body aches, fatigue, malaise or diaphoresis Eyes: Denies: change in vision, blurry vision, photophobia, eye discomfort, eye discharge, eye redness or yellow eyes ENMT: Denies: throat pain, enlarged tonsils, odynophagia, hoarseness, swelling of lips/tongue, ear or mastoid pain, ear discharge, change in hearing, nasal discharge or nasal congestion Card: Denies: chest pain, palpitations, irregular heart rhythm, edema, lightheadedness, syncope, pre-syncope, dyspnea on exertion or orthopnea Resp: Denies: dyspnea, productive cough, non-productive cough, wheezing, hemoptysis or chest congestion GI: Reports: abdominal pain, nausea and diarrhea; Denies: vomiting, hematemesis, coffee ground emesis, heartburn, constipation, GI cramping, hematochezia or melena : Denies: flank pain, dysuria, urinary frequency, urinary urgency or hematuria Musc: Denies: neck pain, back pain, extremity pain, extremity swelling, joint pain, joint swelling, joint redness, joint warmth, joint stiffness or muscle cramps Skin/Breast: Denies: rash, pruritus, erythema, skin pain, skin tenderness or new lesions Neuro: Denies: headache(s), numbness in extremities, weakness in extremities, sensory changes, lack of coordination, difficulty walking, dizziness, vertigo, confusion, Slurred speech present or seizure-like activity Psych: Denies: anxiety or depression Endo: Denies: polyuria or hot flashes Dewey/Lymph: Denies: easy bruising, easy bleeding, petechiae, purpura or enlarged lymph nodes All/Imm: Denies: urticaria, throat swelling, tongue swelling, facial swelling or acute wheezing Meds/Allergies Home Medications and Allergies Home Medications Medication Instructions Recorded Confirmed Last Taken Type amlodipine 5 mg tablet 5 mg PO DAILY tab 06/01/19 03/18/20 03/18/20 History aspirin 81 mg tablet,delayed 81 mg PO DAILY 06/01/19 03/18/20 03/18/20 History release dulaglutide 0.75 mg/0.5 mL 0.75 mg SUBCUT Q7D 06/01/19 03/18/20 03/11/20 History subcutaneous pen injector furosemide 40 mg tablet 40 mg PO QAM 06/01/19 03/18/20 03/18/20 History levothyroxine 88 mcg capsule 88 mcg PO DAILY 06/01/19 03/18/20 03/18/20 History metformin 500 mg tablet 500 mg PO BID 06/01/19 03/18/20 03/15/20 History methocarbamol 750 mg tablet 750 mg PO TID PRN 06/01/19 03/18/20 01/06/20 History metoprolol tartrate 50 mg tablet 50 mg PO BID 06/01/19 03/18/20 03/18/20 History multivitamin 1 tab PO QAM 06/01/19 03/18/20 03/17/20 History nitroglycerin 0.4 mg sublingual 0.4 mg SUBLINGUAL Q5M PRN 06/01/19 03/18/20 09/10/19 History tablet diabetic shoes #1 ea 06/09/19 03/18/20 07/06/19 Rx clopidogrel 75 mg tablet 75 mg PO DAILY #90 tab 08/14/19 03/18/20 03/18/20 Rx atorvastatin 40 mg tablet 40 mg PO DAILY #30 tab 10/07/19 03/18/20 03/18/20 Rx citalopram 10 mg tablet 20 mg PO DAILY tab 10/27/19 03/18/20 03/17/20 History cyclobenzaprine 10 mg PO TID PRN 01/07/20 03/18/20 03/17/20 History isosorbide mononitrate 30 mg 30 mg PO BID tab 01/14/20 03/18/20 03/18/20 History tablet,extended release 24 hr [facility] #1 ea 01/28/20 03/18/20 Unknown Rx [place] #1 ea 01/28/20 03/18/20 Unknown Rx promethazine 25 mg PO TID PRN #20 tab 03/15/20 03/18/20 03/18/20 Rx Allergies Allergy/AdvReac Type Severity Reaction Status Date / Time Sulfa (Sulfonamide Allergy Severe ALGY-Difficulty Verified 03/15/20 10:22 Antibiotics) Breathing codeine Allergy ALGY-Anaphy Verified 03/15/20 10:22 laxis haloperidol [From Haldol] Allergy ADR-Irritab Verified 03/15/20 10:22 le Iodinated Contrast Media Allergy ALGY-Difficulty Verified 03/15/20 10:22 Breathing iodine Allergy ALGY-Difficulty Verified 03/15/20 10:22 Breathing ketorolac Allergy ADR-Nausea Verified 03/15/20 10:22 metoclopramide [From Reglan] Allergy ALGY-Difficulty Verified 03/15/20 10:22 Breathing nalbuphine [From Nubain] Allergy ADR-Diarrhe Verified 03/15/20 10:22 a naproxen [From Naprosyn] Allergy ADR-Vomitin Verified 03/15/20 10:22 g ondansetron [From Zofran] Allergy ADR-Abdominal Verified 03/15/20 10:22 Pain prochlorperazine Allergy ADR-Irritab Verified 03/15/20 10:22 [From Compazine] le ranolazine [From Ranexa] Allergy ALGY-Difficulty Verified 03/15/20 10:22 Swallowing Current Medications Current Medications Generic Name Dose Route Start Last Admin Trade Name Freq PRN Reason Stop Dose Admin Acetaminophen 650 mg 03/18/20 09:37 03/18/20 13:56 Tylenol PO 650 mg Q6H PRN Administration Mild/Mod Pain Or Temp >/= 101 Aspirin 81 mg 03/19/20 09:00 03/19/20 08:29 Aspirin Ec PO 81 mg DAILY RANDY Administration Atorvastatin Calcium 40 mg 03/19/20 09:00 03/19/20 08:30 Lipitor PO 40 mg DAILY RANDY Administration Citalopram Hydrobromide 20 mg 03/19/20 09:00 03/19/20 08:30 Celexa PO 20 mg DAILY RANDY Administration Clopidogrel Bisulfate 75 mg 03/19/20 09:00 03/19/20 08:30 Plavix PO 75 mg DAILY RANDY Administration Cyclobenzaprine HCl 10 mg 03/18/20 11:05 03/19/20 08:30 Flexeril PO 10 mg TID PRN Administration MUSCLE SPASMS Diphenhydramine HCl 50 mg 03/18/20 20:36 03/18/20 22:05 Benadryl PO 50 mg BEDTIME PRN Administration insomnia Sodium Chloride 1,000 mls @ 50 mls/hr 03/18/20 09:45 03/19/20 06:12 Sodium Chloride 0.9% IV 50 mls/hr .Q20H RANDY Administration Insulin Aspart 0 unit 03/18/20 21:00 03/18/20 22:04 Novolog SUBCUT 2 unit BEDTIME RANDY Administration Protocol Insulin Aspart 0 unit 03/18/20 12:00 03/19/20 12:23 Novolog SUBCUT Not Given [facility] Protocol Isosorbide Mononitrate 30 mg 03/18/20 18:00 03/19/20 08:30 Imdur PO 30 mg BID RANDY Administration Levothyroxine Sodium 88 mcg 03/19/20 09:00 03/19/20 08:29 Synthroid PO 88 mcg DAILY RANDY Administration Metoprolol Tartrate 50 mg 03/18/20 18:00 03/19/20 08:30 Lopressor PO 50 mg BID RANDY Administration Nitroglycerin 0.4 mg 03/18/20 11:05 03/19/20 02:33 Nitrostat SUBLINGUAL 1 tab Q5M PRN Administration Chest Pain Pantoprazole Sodium 40 mg 03/19/20 12:00 03/19/20 12:46 Protonix IVP 40 mg Q12H RANDY Administration Promethazine HCl 12.5 mg 03/18/20 09:37 03/18/20 13:56 Phenergan PO 12.5 mg Q6H PRN Administration NAUSEA Promethazine HCl 12.5 mg 03/19/20 01:35 03/19/20 02:30 Phenergan IM 12.5 mg Q6H PRN Administration NAUSEA Tramadol HCl 50 mg 03/18/20 15:30 03/19/20 06:11 Ultram PO 50 mg Q4H PRN Administration MODERATE PAIN PFSH Acute PFSH: Medical History (Updated 03/19/20 @ 15:10 by Rosi Vee MD) Anemia Atherosclerotic heart disease of [place] coronary artery with other forms of angina pectoris -hx of CAD with prior stenting of proximal LAD, LCx, RCA Benign essential hypertension with target blood pressure below 140/90 CAD (coronary artery disease) Cardiomyopathy CHF (congestive heart failure) Chronic anticoagulation Chronic kidney disease -baseline Cr appears to be around 1.5 Chronic systolic heart failure EF=47%, diffuse LV hypokinesis, mildly increased LA size CKD (chronic kidney disease) Compartment syndrome Depression Diabetes -on ISS, accuchecks, hypoglycemia precautions; A1c-7.6 (08/2019) Foot drop, left H/O acute myocardial infarction H/O deep venous thrombosis Hyperlipidemia Hypertension Hypothyroidism Ischemic cardiomyopathy Obesity (BMI 30-39.9) Osteoarthritis of spine Port-A-Cath in place Subcutaneous mass of back Lipoma Systolic CHF Unstable angina pectoris Surgical History H/O colonoscopy 08/2015 H/O esophagogastroduodenoscopy 08/2015 H/O removal of testicle left H/O skin graft H/O vasectomy History of appendectomy History of coronary artery stent placement 5x History of excision of mass 06/08/2019: Subcutaneous mass on back History of inguinal hernia repair, bilateral 2000 History of removal of Port-a-Cath Hx of cholecystectomy Family History Grandfather Cancer skin cancer Parkinson disease Brother Hypertension Father Heart disease Mother Hypertension Stroke Aneurysm Grandmother Aneurysm Other Crohn disease Denies family history of Anesthesia complication Bleeding disorder Social History Smoking and tobacco status: never smoked Alcohol intake: former Former alcohol use details: Only holidays Lives independently: Yes Household members: significant other Marital status: Single Current occupational status: disabled History of recent travel: No Dietary Habits: Current diet type/program: other (Low [place] Diet) Caffeine: Yes Caffeine intake frequency: carbonated beverages Vitals/I&O/Wt Last Vital Signs Temp 97.5 F L 03/19/20 11:59 Pulse 69 03/19/20 11:59 Resp 18 03/19/20 11:59 BP 124/77 03/19/20 12:00 Pulse Ox 96 03/19/20 11:59 03/18/20 03/19/20 03/19/20 22:59 06:59 14:59 Intake Total 0 / 0 908.333 / 908.333 Output Total 400 / 950 600 / 1550 Balance -400 / -950 308.333 / -641.667 Weight last 48 hrs Weight 227 lb 3.2 oz Weight 222 lb Physical Exam Narrative: EXAM NARRATIVE: Patient was not examined since he is ruled out for Covid test Data Labs: Other Labs: Sinus rhythm poor R wave progression in the anterolateral leads no significant ST-T ST changes suggestive of ischemia noted. A&P Assessment and plan (1) Chest pain: Patient has been admitted with nausea vomiting diarrhea dehydration acute on chronic renal failure and chest pain relieved with nitroglycerin he had been admitted in the past with chest pain he had angiogram few months ago which showed patent previously placed stents there is no significant EKG changes no cardiac markers abnormality noted even in the face of renal failure therefore for now we will treat him and manage him medically with optimization of medicine and anticoagulation. We will continue to monitor him if any ST changes suggestive of ischemia or arrhythmia noted we may will opt for early invasive strategy however he may need stress test otherwise once recovered from renal failure and diarrhea episodes. Discussed in detail his situation and treatment with Dr. Romero. Status: Acute Qualifiers: Chest pain type: unspecified Qualified Code(s): R07.9 - Chest pain, unspecified (2) Systolic CHF: Remain well compensated brother on dehydrated side. IV fluid to improve renal function at 100 mL/h Status: Acute Qualifiers: Heart failure chronicity: chronic Qualified Code(s): I50.22 - Chronic systolic (congestive) heart failure (3) Dehydration: Advised IV fluid Status: Acute (4) Renal failure (ARF), acute on chronic: IV fluid 100 mL/h may benefit him. 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
--- NOTE | 2020-03-19 14:59 | PM.PN ---
Subjective Subjective: Interval history: Hospital course, labs and H&P noted. Overnight patient had 2-3 episodes of chest pressure radiating down to left arm and jaw associated with nausea but no vomiting. He denies of having any further diarrhea. Patient has remained hemodynamically stable and afebrile. Rapid COVID-19 antigen was negative viral PCR is pending. Vitals/I&O/Wt Last Vital Signs Temp 98.0 F 03/19/20 14:56 Pulse 73 03/19/20 14:56 Resp 15 03/19/20 14:56 BP 120/74 03/19/20 14:56 Pulse Ox 93 03/19/20 14:56 03/18/20 03/19/20 03/19/20 22:59 06:59 14:59 Intake Total 0 / 0 908.333 / 908.333 Output Total 400 / 950 600 / 1550 600 / 600 Balance -400 / -950 308.333 / -641.667 -600 / -600 Weight last 48 hrs Weight 103.056 kg Weight 100.698 kg Physical Exam Const: COMMON NORMALS: patient oriented x3 and alert GENERAL APPEARANCE: cooperative ORIENTATION/CONSCIOUSNESS: Yes awake, Yes oriented to person, Yes oriented to place and Yes oriented to time HENMT: COMMON NORMALS: normocephalic and atraumatic HEAD & SCALP: normocephalic and atraumatic Eye: COMMON NORMALS: Equal, round and reactive pupils present PUPIL: Yes Equal, round and reactive pupils present Neck/C-Spine: COMMON NORMALS: supple GENERAL: Yes normal visual inspection Resp: COMMON NORMALS: normal respiratory effort and clear to auscultation bilaterally EFFORT & INSPECTION: Yes able to speak in complete sentences AUSCULTATION: clear to auscultation bilaterally, no rhonchi and no wheezes Cardio: COMMON NORMALS: regular rate, regular rhythm and No murmurs present (Cardio) RATE: regular rate RHYTHM: regular rhythm GI: COMMON NORMALS: Soft to palpation and non-tender INSPECTION: No abdominal distension AUSCULTATION: Yes normoactive bowel sounds PALPATION: Yes Soft to palpation Extremity: COMMON NORMALS: no clubbing, cyanosis or edema and no calf tenderness NARRATIVE EXTREMITY EXAM: Status post bilateral fasciotomies, scars well-healed Neuro: COMMON NORMALS: patient oriented x3, CN's II-XII intact bilaterally, moves all extremities and no focal motor deficits SENSORIUM/ORIENTATION: Yes alert, Yes oriented to person, Yes oriented to place and Yes oriented to time SPEECH: speech normal Psych: COMMON NORMALS: mental status grossly normal and cooperative Skin: COMMON NORMALS: no rashes or lesions noted GENERAL SKIN EXAM: no rashes or lesions noted Data : 03/18/20 04:40 03/19/20 06:21 A&P Assessment and plan (1) Chest pain: Status: Acute Qualifiers: Chest pain type: unspecified Qualified Code(s): R07.9 - Chest pain, unspecified (2) Vomiting: Status: Acute Qualifiers: Nausea presence: unspecified Vomiting Intractability: unspecified Vomiting type: unspecified Qualified Code(s): R11.10 - Vomiting, unspecified (3) Gastroenteritis: Continue with supportive care Testing for COVID-19 [address] 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: without group home use Diabetes mellitus complication status: with hyperglycemia Qualified Code(s): E11.65 - Type 2 diabetes mellitus with hyperglycemia (8) Hypertension: Status: Acute Qualifiers: Hypertension type: essential hypertension Qualified Code(s): I10 - Essential (primary) hypertension Additional A&P Information Man with past medical history of CAD with multiple stents with most recent cardiac angiogram in November 2019 showing patent stents, admission with multiple similar complaints, type 2 diabetes mellitus presented to the ER yesterday with complaints of epigastric pain, nausea and vomiting along with few episodes of diarrhea perceived to be having gastroenteritis. Chest pressure: Patient has had multiple cardiac angiograms in the past with most recent in November 2019 showing patent stents. Echocardiogram from 2017 shows an EF 55%, mildly increased LA size, diffuse hypokinesis of inferior wall, mild to moderate MR. Her symptoms again consistent with possible angina though unlikely as recent angiogram was negative. Troponin cycle negative yesterday. We will add troponin to today morning's lab. Case discussed with Dr. Vee. Continue with home dose of aspirin, statin, Imdur, Plavix, beta-zaira. Start patient on full dose Lovenox 1 mg/kg weight once daily as per his creatinine clearance. Cannot add ranolazine due to previously added allergy. Repeat echocardiogram. Patient also has history of pulmonary embolism but is not on anticoagulation most likely because of history of spontaneous bleeding in both his calf muscles leading to compartment syndrome. Patient is saturating more than 90% on room air. Patient states he was on Eliquis for 6 months and then was discontinued and transitioned to Plavix. Check D-dimer, lower limb Dopplers. Unfortunately cannot do CTA PE because of renal dysfunction. Continue with Protonix and Carafate. Nausea/vomiting: States symptoms are better. Continue with Phenergan and Zofran. Start patient on clear liquid diet and will try to advance gradually. Diabetes mellitus type 2: Moderate dose sliding scale insulin, Metformin recently held due to concern for contributing to nausea and diarrhea Will await stool studies. COVID-19 rapid antigen negative in the ER. PCR has been sent out. Isolation precautions for now. Acute on CKD: Baseline creatinine seems to be around 1.5. 1.9 today. Most likely secondary to dehydration from diarrhea. Medical reconciliation done for nephrotoxic drugs. IV fluids 100 cc/h for now. Left Port-A-Cath: Discussed with patient in detail that having a Port-A-Cath puts him at a higher risk of infective endocarditis, sepsis. He states Port-A-Cath was placed for blood draws every 6 months. Did discuss with him that going forward this puts him at a higher risk of developing infections. States he will discuss the same with his primary care provider. DVT ppx: Full dose Lovenox. Diet: Full liquid diet. Full code. Attestations Medical Necessity Statement*: Needs further hospitalization for management of chest pressure, acute on chronic kidney disease, nausea and vomiting. 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
--- NOTE | 2020-03-19 15:22 | USCV_ITS ---
Christopher Rei Age: 49 Gender: M : 1970 Exam Date: 03/19/2020 15:36 Ordering Phys: Rafiq Mariee MD Technologist: Jeanne Armendariz Exam Location: [facility] – [place] Indication: CAD, EF 55% BP: 120 / 74 HR: 66 Rhythm: Sinus Technical Quality: Technically difficult study MEASUREMENTS (Male / Female) Normal Values 2D ECHO LV Diastolic Diameter PLAX 4.6 cm 4.2 - 5.9 / 3.9 - 5.3 cm LV Systolic Diameter PLAX 3.5 cm LV Chamber Size 4.8 cm IVS Diastolic Thickness 1.9 cm 0.6 - 1.0 / 0.6 - 0.9 cm IVS Systolic Thickness 1.8 cm LVPW Diastolic Thickness 0.9 cm 0.6 - 1.0 / 0.6 - 0.9 cm LVPW Systolic Thickness 1.7 cm RV Chamber Size 3.4 cm LVOT Diameter 2.1 cm LV Ejection Fraction 2D Teich 47.9 % LA Diameter 4.3 cm LA Width 2.5 cm LA Height 6.1 cm RA Width 3.2 cm RA Height 4.1 cm Aorta at Sinotubular Diameter 2.9 cm M-MODE LV Diastolic Diameter MM 5.8 cm 4.2 - 5.9 / 3.9 - 5.3 cm LV Systolic Diameter MM 4.0 cm LV Ejection Fraction MM Teich 57.7 % IVS Diastolic Thickness MM 1.1 cm 0.6 - 1.0 / 0.6 - 0.9 cm IVS Systolic Thickness MM 1.4 cm LVPW Diastolic Thickness MM 1.4 cm 0.6 - 1.0 / 0.6 - 0.9 cm LVPW Systolic Thickness MM 1.8 cm Aortic Annulus Diameter 3.8 cm LA Ao Ratio MM 1.3 MV E Point Septal Separation 1.4 cm DOPPLER AV Peak Velocity 71.0 cm/s LVOT Peak Velocity 56.0 cm/s AV Area Cont Eq vti 2.4 cm squared AV Area Cont Eq pk 2.6 cm squared MV Area PHT 4.3 cm squared Mitral E to A Ratio 0.9 MV E' Velocity 30.0 cm/s Mitral E to MV E' Ratio 6.5 Mitral E to LV E' Lateral Ratio 4.8 Mitral E to LV E' Septal Ratio 9.9 TR Peak Velocity 209.0 cm/s TR Peak Gradient 17.5 mmHg TV Peak E Velocity 55.0 cm/s PV Peak Velocity 63.0 cm/s RV Acceleration Time 0.1 s RV Ejection Time 0.3 s RV AcT/ET 0.3 FINDINGS Left Ventricle Mildly increased left ventricular cavity size. Mildly increased left ventricular cavity size. Anterior and septal wall of the left ventricle ventricular showed hypokinesis. Left ventricular ejection fraction is estimated at 50 %. Grade I/IV diastolic dysfunction (abnormal relaxation filling pattern), normal to mildly elevated filling pressures. Right Ventricle The right ventricle is normal in size and function. RVSP could not be calculated due to incomplete tricuspid regurgitation velocity profile. Right Atrium The right atrium is normal in size. Left Atrium The left atrium is normal in size. Mitral Valve Moderately thickened mitral valve. Mild mitral annular calcification. No mitral valve stenosis. Trace mitral valve regurgitation. Aortic Valve Mild aortic valve calcification. No aortic valve stenosis. Trace aortic valve regurgitation. Tricuspid Valve Trace tricuspid valve regurgitation. Pulmonic Valve Mild pulmonary valve regurgitation. Pericardium Normal pericardium without effusion. Aorta Normal ascending aorta dimension. CONCLUSIONS 1-Mildly increased left ventricular cavity size. Mildly increased left ventricular cavity size. Anterior and septal wall of the left ventricle ventricular showed hypokinesis. Left ventricular ejection fraction is estimated at 50 %. Grade I/IV diastolic dysfunction (abnormal relaxation filling pattern), normal to mildly elevated filling pressures. 2-The right ventricle is normal in size and function. RVSP could not be calculated due to incomplete tricuspid regurgitation velocity profile. 3-Trace tricuspid valve regurgitation. 4-Mild pulmonary valve regurgitation. 5-Mild aortic valve calcification. No aortic valve stenosis. Trace aortic valve regurgitation. 6-Moderately thickened mitral valve. Mild mitral annular calcification. No mitral valve stenosis. Trace mitral valve regurgitation. 7-There is no pericardial effusion. 8-Right atrial pressure is around 5 mm of mercury. 9-When compared to the prior echocardiogram dated 12/02/2019 prior echo was limited study however there is improvement in left ventricle function from 45 to 50% now. Rosi Vee MD (Electronically Signed) Final Date: 20 March 2020 15:36 S
--- NOTE | 2020-03-19 15:31 | USR_ITS ---
PROCEDURE INFORMATION: Exam: US Duplex Lower Extremity Veins, Bilateral Exam date and time: 03/19/2020 3:32 PM Age: 49 years old Clinical indication: Condition or disease; Other: H/o pulmonary embolus; Additional info: R/O dvt TECHNIQUE: Imaging protocol: Real-time duplex ultrasound of the extremities with 2-D blanco scale, color Doppler flow and spectral waveform analysis with image documentation. Complete exam focused on the bilateral lower extremity veins. COMPARISON: No relevant prior studies available. FINDINGS: Limitations: Study is limited due to patient body habitus. Right deep veins: Unremarkable. The common femoral, femoral, proximal profunda femoral and popliteal veins are patent without thrombus. Normal Doppler waveforms. Normal compressibility and/or augmentation response. Right superficial veins: Saphenofemoral junction is patent without thrombus. Left deep veins: Unremarkable. The common femoral, femoral, proximal profunda femoral and popliteal veins are patent without thrombus. Normal Doppler waveforms. Normal compressibility and/or augmentation response. Left superficial veins: Saphenofemoral junction is patent without thrombus. Soft tissues: Unremarkable. US/CV venous duplex [facility] [id number] IMPRESSION: No evidence of DVT in either thigh. Visualization of the veins below the knees is very limited.
[2020-03-19 16:01] LABS: Glucose Point of Care 107 mg/dL (70-110)
[2020-03-19 16:09] LABS: NT Pro B Type Natriuretic Pept 337 pg/mL (0-125)
[2020-03-19] MEDS: enoxaparin 100 mg/mL Syringe SUBCUT (16:27)
[2020-03-19] MEDS: sucralfate 1 gm/10 mL Oral Liq UDC PO ×2 (16:28→20:35)
[2020-03-19 16:49] LABS: D Dimer 0.58 ug/mIFEU (0-0.59)
--- NOTE | 2020-03-19 18:30 | PC.NURSE ---
Chest pain Pt stated he started to have chest pain rated at 5/10 per pain scale. EKG taken, Nitro SL x3 doses given and his chest pain down to 1. No changes to ekg noted. Dr. Vee notified however. He look at the EKG. no new orders received.
--- NOTE | 2020-03-19 18:34 | ECG_ITS ---
[facility] Test Date: 2020-03-19 Pat Name: Rei Queen Department: Room: 102 Gender: Male Customer Liaison: : 1970 Requested By: Rafiq Mariee Order Number: [id number] Becky MD: SALIMA HYDE Measurements Intervals [place] Rate: 71 P: 53 [place]: 189 QRS: -16 QRSD: 101 T: 101 QT: 365 QTc: 399 Interpretive Statements SINUS RHYTHM ANTERIOR MYOCARDIAL INFARCTION [40+ ms Q WAVE AND/OR ST/T ABNORMALITY IN V3/V4], OF INDETERMINATE AGE INFERIOR MYOCARDIAL INFARCTION [40+ ms Q WAVE AND/OR ST/T ABNORMALITY IN II/aVF], PROBABLY OLD MODERATE T-WAVE ABNORMALITY, CONSIDER LATERAL ISCHEMIA [-0.1+ mV T WAVE IN I/aVL/V5/V6] Compared to ECG 03/19/2020 01:21:51 T-wave abnormality now present Possible ischemia now present Myocardial infarct finding still present Electronically Signed On 03-20-2020 19:35:56 PERSONAL HEALTH COACH by SALIMA HYDE [id number]
[2020-03-19] MEDS: sodium chloride 0.9% 1,000 ML 100 ML IV (19:13)
[2020-03-19 20:34] LABS: Glucose Point of Care 100 mg/dL (70-110)
[2020-03-19] MEDS: diphenhydrAMINE 50 mg Capsule PO (20:36)
--- NOTE | 2020-03-19 22:50 | PC.NURSE ---
PT CALLED TO THE NURSES STATION C/O SEVERE CHEST PAIN. PAIN IS A 12/27. 1 NITRO SL WAS GIVEN AT 2249. BP 108/70. CP WAS BROUGHT ON BY PT USING THE BATHROOM AND COMING BACK TO BED.
--- NOTE | 2020-03-19 22:55 | PC.NURSE ---
SECOND NITRO SL WAS GIVEN AT 2254. PAIN IS AT A 6/10. C/O CHEST PAIN / PRESSURE. BP 93/54.
--- NOTE | 2020-03-19 23:00 | PC.NURSE ---
THIRD NITRO SL WAS GIVEN AT 2259. PAIN IS AT A 2/10. C/O CHEST PAIN / PRESSURE. BP 99/54.
--- NOTE | 2020-03-19 23:16 | PC.NURSE ---
PT C/O CHEST PAIN. DR LANG WAS NOTIFIED. NO NEW ORDERS RECEIVED. WILL CONTINUE TO MONITOR.
[2020-03-20] VITALS (8 sets, daily range): BP systolic 115–141; BP diastolic 63–73; PULSE 66–76; RESP 13–21; TEMP 36.3–37; O2SAT 93–99
[2020-03-20] MEDS: pantoprazole 40 mg SDV IVP ×2 (01:04→11:34)
[2020-03-20] MEDS: morphine 4 mg/mL SDV 1 mL 2 MG IVP (02:29)
[2020-03-20] MEDS: sodium chloride 0.9% 1,000 ML 100 ML IV (02:30)
[2020-03-20] MEDS: sucralfate 1 gm/10 mL Oral Liq UDC PO ×4 (06:20→20:52)
[2020-03-20 06:22] LABS: Alanine Aminotransferase 24 U/L (0-41); Albumin Level 3.5 g/dL (3.5-5.2); Alkaline Phosphatase 134 IU/L (40-130); Anion Gap 12.8 (5-19); Aspartate Amino Transferase 22 U/L (0-40); Blood Urea Nitrogen 20 mg/dL (6-20); Calcium 8.5 mg/dL (8.5-10.5); Carbon Dioxide 25 mmol/L (22-29); Chloride 108 mmol/L (98-107); Globulin 2.1 g/dL (1.3-4.6); Glomerular Filtration Rate 45.8 mL/min (90-130); Glucose 71 mg/dL (65-115); Osmolality Calculated 293 mOsm/kg (285-295); Potassium 4.8 mmol/L (3.5-5.1); Sodium 141 mmol/L (136-145); Total Bilirubin 0.8 mg/dL (0.15-1.2); Total Protein 5.6 g/dL (6.6-8.7)
[2020-03-20 06:23] LABS: Glucose Point of Care 73 mg/dL (70-110)
--- NOTE | 2020-03-20 06:29 | PC.NURSE ---
PT HAD CHEST PAIN THAT WAS RESOLVING WITH NITRO. CP RETURNED AND MORPHINE WAS GIVEN, WHICH ELIMINATED CP. PT JUST STATED THAT THE CP IS INCREASING AGAIN. PT DESCRIBES IT CHEST PAIN AND PRESSURE RADIATING IN THE NECK. PT WANTS TO HOLD OFF ON MEDICATIONS AT THIS TIME TO SEE IF IT RESOLVES ON ITS OWN. WILL GIVE PASS DOWN IN REPORT. PT ALSO CALLED AND SAID THAT THERE IS MAJOR CONCERN ON HER PART THAT PT HAS A PE.
--- NOTE | 2020-03-20 08:00 | PC.NURSE ---
Chest pain Pt stated he woke up and chest pain is worse. rated at 7/10 pain scale. Pt stated, Morphine relieved his pain with metal milling machine operator. Pt had received Morphine IVP as one time order at 2:29 am from metal milling machine operator. Notified Telephone order read back to give Morphine 1 mg PRN q6h.
--- NOTE | 2020-03-20 08:30 | PC.NURSE ---
Pt reported of Chest Pain He said it is starting to get worse. He stated, It is 8 but not made me shaky. I have not heard from my since this morning. That made me worry. She has a history of stroke before. PRN Morphine 1 mg given as ordered.
[2020-03-20] MEDS: morphine 4 mg/mL SDV 1 mL 1 MG IVP ×2 (08:49→17:44)
[2020-03-20] MEDS: metoprolol tartrate 50 mg Tablet PO ×2 (09:01→17:41)
[2020-03-20] MEDS: clopidogrel 75 mg Tablet PO (09:01)
[2020-03-20] MEDS: levothyroxine 88 mcg Tablet PO (09:01)
[2020-03-20] MEDS: atorvastatin 40 mg Tablet PO (09:01)
[2020-03-20] MEDS: citalopram 20 mg Tablet PO (09:01)
[2020-03-20] MEDS: isosorbide mononitrate ER 30 mg Tablet PO ×2 (09:01→17:42)
[2020-03-20] MEDS: aspirin 81 mg EC Tablet PO (09:01)
[2020-03-20 11:12] LABS: Glucose Point of Care 131 mg/dL (70-110)
--- NOTE | 2020-03-20 11:57 | PC.NURSE ---
Pt sitting on the side of the bed, eating his lunch Denies any pain at this time.
[2020-03-20] MEDS: alum-mag-hydroxide-sime 30 mL UDC 15 ML PO (14:17)
--- NOTE | 2020-03-20 14:26 | P.PN_ITS ---
Subjective Subjective: Interval history: No acute events overnight. Denies having nausea, vomiting, headache. Continues to have on and off epigastric and retrosternal pain associated with nausea. Patient seems very anxious about the pain. Labs and vitals noted. Vitals/I&O/Wt Last Vital Signs Temp 98.6 F 03/20/20 10:49 Pulse 76 03/20/20 10:49 Resp 15 03/20/20 10:49 BP 131/73 03/20/20 10:49 Pulse Ox 99 03/20/20 10:49 03/19/20 03/20/20 03/20/20 23:59 06:59 14:59 Intake Total 720 / 720 Output Total 620 / 620 Balance 100 / 100 Weight last 48 hrs Weight 101.65 kg Weight 103.056 kg Physical Exam Const: COMMON NORMALS: patient oriented x3 and alert GENERAL APPEARANCE: cooperative ORIENTATION/CONSCIOUSNESS: Yes awake, Yes oriented to person, Yes oriented to place and Yes oriented to time HENMT: COMMON NORMALS: normocephalic and atraumatic HEAD & SCALP: normocephalic and atraumatic Eye: COMMON NORMALS: Equal, round and reactive pupils present PUPIL: Yes Equal, round and reactive pupils present Neck/C-Spine: COMMON NORMALS: supple GENERAL: Yes normal visual inspection Resp: COMMON NORMALS: normal respiratory effort and clear to auscultation bilaterally EFFORT & INSPECTION: Yes able to speak in complete sentences AUSCULTATION: clear to auscultation bilaterally, no rhonchi and no wheezes Cardio: COMMON NORMALS: regular rate, regular rhythm and No murmurs present (Cardio) RATE: regular rate RHYTHM: regular rhythm GI: COMMON NORMALS: Soft to palpation and non-tender INSPECTION: No abdominal distension AUSCULTATION: Yes normoactive bowel sounds PALPATION: Yes Soft to palpation Extremity: COMMON NORMALS: no clubbing, cyanosis or edema and no calf tende rness NARRATIVE EXTREMITY EXAM: Status post bilateral fasciotomies, scars well-healed Neuro: COMMON NORMALS: patient oriented x3, CN's II-XII intact bilaterally, moves all extremities and no focal motor deficits SENSORIUM/ORIENTATION: Yes alert, Yes oriented to person, Yes oriented to place and Yes oriented to time SPEECH: speech normal Psych: COMMON NORMALS: mental status grossly normal and cooperative Skin: COMMON NORMALS: no rashes or lesions noted GENERAL SKIN EXAM: no rashes or lesions noted Data : 03/18/20 04:40 03/20/20 04:17 A&P Assessment and plan (1) Chest pain: Status: Inactive Qualifiers: Chest pain type: unspecified Qualified Code(s): R07.9 - Chest pain, unspecified (2) Vomiting: Status: Acute Qualifiers: Nausea presence: unspecified Vomiting Intractability: unspecified Vomiting type: unspecified Qualified Code(s): R11.10 - Vomiting, unspecified (3) Gastroenteritis: Continue with supportive care Testing for COVID-19 N[address] for bowel rest CT scan as noted above, no acute abdominal process Status: Acute (4) Renal failure (ARF), acute on chronic: Status: Acute (5) Atherosclerotic heart disease of [place] coronary artery with other forms of angina pectoris: Status: Acute (6) Chronic systolic heart failure: Status: Acute (7) Diabetes: Status: Inactive Qualifiers: Diabetes mellitus type: type 2 Diabetes mellitus fpc insulin use: without slasher runner use Diabetes mellitus complication status: with hyperglycemia Qualified Code(s): E11.65 - Type 2 diabetes mellitus with hyperglycemia (8) Hypertension: Status: Acute Qualifiers: Hypertension type: essential hypertension Qualified Code(s): I10 - Essential (primary) hypertension Additional A&P Information 49-year-old man with past medical history of CAD with multiple stents with most recent cardiac angiogram in November 2019 showing patent stents, admission with multiple similar complaints, type 2 diabetes mellitus presented to the ER yesterday with complaints of epigastric pain, nausea and vomiting along with few episodes of diarrhea perceived to be having gastroenteritis. Chest pressure: Patient has had multiple cardiac angiograms in the past with most recent in November 2019 showing patent stents. Echocardiogram from 2017 shows an EF 55%, mildly increased LA size, diffuse hypokinesis of inferior wall, mild to moderate MR. Her symptoms again consistent with possible angina though unlikely as recent angiogram was negative. Troponin cycle negative yesterday. We will add troponin to today morning's lab. Given patient's past multiple episodes with similar pain followed by normal angiograms chances of cardiac cause are low. Case discussed with Dr. Vee. Continue with home dose of aspirin, statin, Imdur, Plavix, beta-zaira. Start patient on full dose Lovenox 1 mg/kg weight once daily as per his creatinine clearance. Cannot add ranolazine due to previously added allergy. Echocardiogram done results awaited. Patient also has history of pulmonary embolism but is not on anticoagulation most likely because of history of spontaneous bleeding in both his calf muscles leading to compartment syndrome. Patient is saturating more than 90% on room air. Patient states he was on Eliquis for 6 months and then was discontinued and transitioned to Plavix. D-dimer negative which rules out any thromboembolic event. Continue with Protonix and Carafate. Add Maalox every 6 hours as needed. Nausea/vomiting: States symptoms are better. Continue with Phenergan and Zofran. Advance to GI soft diet. Diabetes mellitus type 2: Moderate dose sliding scale insulin, Metformin recently held due to concern for contributing to nausea and diarrhea Patient has not had any further diarrhea. Stool studies still awaited. COVID-19 PCR results are negative. Remove isolation precautions. Acute on CKD: Baseline creatinine seems to be around 1.5. Creatinine back to baseline. Medical reconciliation done for nephrotoxic drugs. Stop IV fluids as patient is tolerating oral diet well. Left Port-A-Cath: Discussed with patient in detail that having a Port-A-Cath puts him at a higher risk of infective endocarditis, sepsis. He states Port-A-Cath was placed for blood draws every 6 months. Did discuss with him that going forward this puts him at a higher risk of developing infections. States he will discuss the same with his primary care provider. DVT ppx: Full dose Lovenox. Diet: Full liquid diet. Full code. Attestations Medical Necessity Statement*: Patient needs further hospitalization for man agement of chest pain under evaluation, resolving nausea and vomiting as you advance diet. Time Spent in Patient Care: Greater than 35 minutes (>than 50% of time spent in counselling and/or direct pt care on unit) . Coding Level of Care Code Acute Rehabilitation Services Director for Aaron Irene Diagnoses Chest pain R07.9 Chest pain type: unspecified Vomiting R11.10 Nausea presence: unspecified Vomiting Intractability: unspecified Vomiting type: unspecified Gastroenteritis K52.9 Renal failure (ARF), acute on chronic N17.9; N18.9 Atherosclerotic heart disease of [place] coronary 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 Chronic systolic heart failure I50.22 Diabetes E11.65 Diabetes mellitus type: type 2 Diabetes mellitus fpc insulin use: without fpc use Diabetes mellitus complication status: with hyperglycemia Hypertension I10 Hypertension type: essential hypertension
[2020-03-20 16:18] LABS: Glucose Point of Care 226 mg/dL (70-110)
[2020-03-20] MEDS: enoxaparin 100 mg/mL Syringe SUBCUT (16:56)
--- NOTE | 2020-03-20 19:28 | PM.PN ---
Subjective Subjective: Interval history: Patient has 1 more episode of chest pain. Covid test is negative. Stable EKG and cardiac marker wolf. Medications: Reviewed: Yes Vitals/I&O/Wt Last Vital Signs Temp 98.0 F 03/20/20 15:18 Pulse 73 03/20/20 15:18 Resp 16 03/20/20 17:44 BP 115/63 03/20/20 15:18 Pulse Ox 95 03/20/20 15:18 03/20/20 03/20/20 03/20/20 06:59 14:59 22:59 Intake Total 720 / 720 240 / 960 Output Total 620 / 620 350 / 970 Balance 100 / 100 -110 / -10 Weight last 48 hrs Weight 224 lb 1.6 oz Weight 227 lb 3.2 oz Physical Exam Narrative: EXAM NARRATIVE: GENERAL: Patient is alert, awake and oriented x3. NECK: No jugular vein distension. HEENT: No cyanosis. No icterus. No pallor. HEART: Regular S1 and S2. No murmur, rub or gallop. LUNGS: Clear to auscultate bilaterally. ABDOMEN: Soft, nontender and nondistended. Positive bowel sounds. No guarding, rebound or tenderness. CENTRAL NERVOUS SYSTEM: Grossly nonfocal. EXTREMITIES: Lower extremities without edema bilaterally. Data : 03/18/20 04:40 03/21/20 05:10 A&P Assessment and plan (1) Chest pain: In August patient stress test showed old myocardial infarction medicine was optimized since he continues to have chest pain in November angiogram was performed which did not show any significant obstructive disease with patent previously placed stent it was thought patient may have small vessel disease or this is extracardiac. He continues to have chest pain most of the time but EKG and cardiac markers remained stable. I also agree that this is not a typical cardiac pain. Extracardiac causes for chest pain should be sorted out. At this point no further testing including stress test or angiogram will be helpful. Status: Resolved Qualifiers: Chest pain type: unspecified Qualified Code(s): R07.9 - Chest pain, unspecified (2) Systolic CHF: Continue IV fluid for rehydration. Patient is well compensated CHF wolf Qualifiers: Heart failure chronicity: chronic Qualified Code(s): I50.22 - Chronic systolic (congestive) heart failure (3) Dehydration: Continue IV fluid Status: Resolved (4) Renal failure (ARF), acute on chronic: Continue IV hydration for renal failure. Attestations Medical Necessity Statement*: As per medicine Coding Level of Care Code Established Pt Acute Education Program Associate for Chg Fwd Patient Type Established Medical Decision Making Moderate Complexity Diagnoses Chest pain R07.9 Chest pain type: unspecified Systolic CHF I50.22 Heart failure chronicity: chronic Dehydration E86.0 Renal failure (ARF), acute on chronic N17.9; N18.9
[2020-03-20 22:04] LABS: Glucose Point of Care 145 mg/dL (70-110)
[2020-03-21] VITALS: BP 137/73; PULSE 68; RESP 22; TEMP 36.4; O2SAT 97
[2020-03-21 00:13] VITALS: RESP 18
[2020-03-21] MEDS: morphine 4 mg/mL SDV 1 mL 1 MG IVP ×2 (00:13→06:23)
[2020-03-21] MEDS: promethazine 25 mg/mL SDV 1 mL 12.5 MG IM ×2 (00:14→06:26)
[2020-03-21] MEDS: pantoprazole 40 mg SDV IVP (00:15)
[2020-03-21 04:00] VITALS: BP 131/73; PULSE 64; RESP 14; TEMP 36.4; O2SAT 94
[2020-03-21] MEDS: nitroglycerin 0.4 mg sublingual Tablet SUBLINGUAL (04:11)
[2020-03-21] MEDS: diphenhydrAMINE 50 mg Capsule PO (04:14)
[2020-03-21 06:08] LABS: Alanine Aminotransferase 21 U/L (0-41); Albumin Level 3.4 g/dL (3.5-5.2); Alkaline Phosphatase 129 IU/L (40-130); Anion Gap 11.6 (5-19); Aspartate Amino Transferase 19 U/L (0-40); Blood Urea Nitrogen 23 mg/dL (6-20); Calcium 8.6 mg/dL (8.5-10.5); Carbon Dioxide 24 mmol/L (22-29); Chloride 106 mmol/L (98-107); Globulin 2.3 g/dL (1.3-4.6); Glomerular Filtration Rate 49.3 mL/min (90-130); Glucose 140 mg/dL (65-115); Osmolality Calculated 290 mOsm/kg (285-295); Potassium 4.6 mmol/L (3.5-5.1); Sodium 137 mmol/L (136-145); Total Bilirubin 0.5 mg/dL (0.15-1.2); Total Protein 5.7 g/dL (6.6-8.7)
[2020-03-21 06:23] VITALS: RESP 18
[2020-03-21] MEDS: sucralfate 1 gm/10 mL Oral Liq UDC PO (06:23)
[2020-03-21 06:47] LABS: Glucose Point of Care 145 mg/dL (70-110)
[2020-03-21 06:51] VITALS: BP 129/77; PULSE 67; RESP 16; TEMP 36.4; O2SAT 93
--- NOTE | 2020-03-21 08:02 | PM.DCS ---
Discharge Providers Date of Admission: 03/19/20 14:09 Date of Discharge: March 21, 2020 Attending Provider at Admission: Estefany Santos DO Attending Provider at Discharge: Jing Brown MD Consults: Cardiology Primary Care Provider: Kp Montanez DO Diagnoses at Discharge Discharge Diagnosis (1) Chest pain: Status: Chronic Permanent problem details: -With multiple prior presentations for the same and multiple coronary angiograms showing patent stents including in 11/2019 -Given continued chest pain, cardiology consulted; unlikely to be typical chest pain -Troponins noted with no significant delta -No acute ischemic changes noted on EKG -Telemetry monitoring -VSS; continue to monitor -Equivocal nuclear stress testing in 08/2019 showing subtle area of ischemia in distribution of RCA -continue statin, ASA, Plavix, Imdur, BB -MEETA Qualifiers: Chest pain type: unspecified Qualified Code(s): R07.9 - Chest pain, unspecified (2) Systolic CHF: Status: Chronic Permanent problem details: -no evidence of acute exacerbation currently -resume diuretics -Echo: EF=50%, G1DD, trace MR, trace TR, trace AR, mild RI -BNP-337 Qualifiers: Heart failure chronicity: chronic Qualified Code(s): I50.22 - Chronic systolic (congestive) heart failure (3) Dehydration: Status: Resolved Permanent problem details: -s/p IVF hydration, good oral intake and urine output -likely secondary to gastroenteritis (4) Renal failure (ARF), acute on chronic: Status: Acute Permanent problem details: -baseline Cr appears to be around 1.5 -renally dose meds, avoid nephrotoxins -stable renal function; s/p IVF Qualifiers: Acute renal failure type: unspecified Chronic kidney disease stage: stage 3 (moderate) Chronic kidney disease stage 3 subtype: stage 3b (GFR 30-44) Qualified Code(s): N17.9 - Acute kidney failure, unspecified; N18.32 - Chronic kidney disease, stage 3b Other Information Additional DC diagnoses/information: -Morbid obesity: BMI-37 kg/m2 -Hypothyroidism: continue levothyroxine -Dyslipidemia; on statin -hx of HTN; normotensive; continue to monitor vital signs Reason for Visit Reason for Visit: n/v, diarrhea, headache Hospital Course Hospital Course: Patient was admitted to the cardiac stepdown unit after having been found to have intractable nausea, vomiting, diarrhea as well as complaints of chest pain. Patient has been evaluated on multiple occasions for complaints of chest pain and has had extensive work-up including earlier this year with angiogram showing patent stents, no significant delta on trending troponins and no ischemic changes on EKG. As on previous occasions cardiology was consulted and recommended medical management including therapeutic anticoagulation. Due to patient's symptoms he was tested for COVID-19, rapid testing was negative, PCR testing is pending. Symptoms have improved with IV fluid hydration and he is tolerating oral intake. He is hemodynamically stable, afebrile and on room air. He was found to have mild renal impairment which has improved with IV fluid hydration. Current renal function is at baseline. Imaging was negative for any acute findings. He will likely continue to present with similar symptoms in the future and is at high risk for readmission despite optimization of his medical treatment. He is to follow up with his primary care provider and continue to follow up with Dr. Lopez. Discharge Summary: -Patient to follow up with primary care provider within 1 week -Patient to follow up with Dr. Lopez as scheduled Physical Exam Const: COMMON NORMALS: no acute distress and patient oriented x3 GENERAL APPEARANCE: cooperative and comfortable NUTRITIONAL APPEARANCE: obese ORIENTATION/CONSCIOUSNESS: Yes awake HENMT: COMMON NORMALS: normocephalic, atraumatic, hearing grossly normal bilaterally and moist oral mucous membranes HEAD & SCALP: normocephalic and atraumatic Eye: COMMON NORMALS: Equal, round and reactive pupils present, EOMs intact bilaterally and conjunctivae normal CONJUNCTIVA: Yes conjunctivae normal PUPIL: Yes Equal, round and reactive pupils present Neck/C-Spine: COMMON NORMALS: full ROM GENERAL: Yes normal visual inspection and Yes trachea midline Chest: CHEST: Yes Vascular access present (port-A-cath in place) OTHER: -healed sternotomy scar Resp: COMMON NORMALS: normal respiratory effort, No retractions, No use of accessory muscles and clear to auscultation bilaterally EFFORT & INSPECTION: Yes able to speak in complete sentences, Yes symmetric chest movement and No tachypneic AUSCULTATION: clear to auscultation bilaterally OTHER: -on RA Cardio: COMMON NORMALS: regular rate, regular rhythm, S1 normal heart sound present, S2 normal heart sound present and No murmurs present (Cardio) RATE: regular rate RHYTHM: regular rhythm HEART SOUNDS: S1 normal heart sound present and S2 normal heart sound present GI: COMMON NORMALS: Normal to inspection, nondistended, normoactive bowel sounds present, Soft to palpation and non-tender PALPATION: Yes Soft to palpation Extremity: COMMON NORMALS: normal to inspection, full ROM and no clubbing, cyanosis or edema; negative for no pedal edema Neuro: COMMON NORMALS: patient oriented x3, moves all extremities, no focal motor deficits, no sensory deficits noted and gait normal Psych: COMMON NORMALS: mental status grossly normal, Normal thought process present, cooperative, normal affect and speech normal SPEECH: Yes normal speech THOUGHT PROCESS: Normal thought process present Skin: COMMON NORMALS: no rashes or lesions noted, no jaundice, no petechiae and no mottling GENERAL SKIN EXAM: no rashes or lesions noted Discharge Data Data Completed and Pending: Completed Studies During Hospitalization Category Date Time Status CT abdomen pelvis wo con [id number] Stat Cat Scan 03/18/20 04:55 Completed CV echo complete* [id number] Routine Ultrasound 03/19/20 15:22 [place] [id number] Urgent Ultrasound 03/19/20 15:31 Completed US scrotum [id number] Stat Ultrasound 03/18/20 04:23 Completed Pending at discharge Category Date Time Status Clostridioides Di fficile PCR Routin e Lab 03/18/20 10:52 Ordered Enteric Bacterial Panel by PCR Rout ine Lab 03/18/20 10:52 Ordered Enteric Parasite Panel by PCR Routi ne Lab 03/18/20 10:52 Ordered Immunochemical Fe maureen OCB Routine Lab 03/18/20 10:52 Ordered Lactoferrin Routi ne Lab 03/18/20 10:52 Ordered PTC COVID [Damon virus Lab Test PTC ] Routine Lab 03/18/20 15:30 Stop Req Labs from last 24 hours 03/21/20 03/21/20 03/20/20 06:40 05:10 20:58 Sodium 137 Potassium 4.6 Chloride 106 Carbon Dioxide 24 Anion Gap 11.6 BUN 23 H Creatinine 1.5 H GFR Calculation 49.3 L Glucose 140 H POC Glucose 145 145 Calculated Osmolal ity 290 Calcium 8.6 Total Bilirubin 0.5 AST 19 ALT 21 Alkaline Phosphata se 129 Total Protein 5.7 L Albumin 3.4 L Globulin 2.3 03/20/20 03/20/20 16:03 10:48 Sodium Potassium Chloride Carbon Dioxide Anion Gap BUN Creatinine GFR Calculation Glucose POC Glucose 226 131 Calculated Osmolal ity Calcium Total Bilirubin AST ALT Alkaline Phosphata se Total Protein Albumin Globulin Vitals: Last Vital Signs Temp 97.5 F L 03/21/20 06:51 Pulse 67 03/21/20 06:51 Resp 16 03/21/20 06:51 BP 129/77 03/21/20 06:51 Pulse Ox 93 03/21/20 06:51 Discharge Plan Discharge Patient Disposition: Home Condition: Stable Prescriptions: New omeprazole 20 mg capsule,delayed release(DR/EC) 20 mg PO DAILY 28 Days Qty: 30 RF: 0 nitroglycerin 0.4 mg/hr patch 24 hour 1 patch TRANSDERMA DAILY Qty: 30 RF: 0 Continued isosorbide mononitrate 30 mg tablet extended release 24 hr 30 mg PO BID RF: 0 (DME) diabetic shoes Qty: 1 RF: 0 multivitamin [Daily Multi-Vitamin] Tablet 1 tab PO QAM RF: 0 citalopram 10 mg tablet 20 mg PO DAILY RF: 0 methocarbamol 750 mg tablet 750 mg PO TID PRN (Reason: Muscle Spasm) RF: 0 levothyroxine 88 mcg capsule 88 mcg PO DAILY RF: 0 metoprolol tartrate 50 mg tablet 50 mg PO BID RF: 0 nitroglycerin [Nitrostat] 0.4 mg tablet, sublingual 0.4 mg SUBLINGUAL Q5M PRN (Reason: Chest Pain) RF: 0 metformin 500 mg tablet 500 mg PO BID RF: 0 Trulicity 0.75 mg/0.5 mL pen injector 0.75 mg SUBCUT Q7D RF: 0 furosemide [Lasix] 40 mg tablet 40 mg PO QAM RF: 0 amlodipine 5 mg tablet 5 mg PO DAILY RF: 0 aspirin 81 mg tablet,delayed release (DR/EC) 81 mg PO DAILY RF: 0 (DME) BYRON WALKER See Rx Instructions .Route .MEDSUPPLY Qty: 1 RF: 0 (DME) Elizabeth See Rx Instructions .Route .MEDSUPPLY Qty: 1 RF: 0 clopidogrel 75 mg tablet 75 mg PO DAILY Qty: 90 RF: 3 atorvastatin 40 mg tablet 40 mg PO DAILY Qty: 30 RF: 5 cyclobenzaprine 10 mg tablet 10 mg PO TID PRN (Reason: MUSCLE SPASMS) RF: 0 promethazine 25 mg tablet 25 mg PO TID PRN (Reason: nausea and vomiting) Qty: 20 RF: 0 Discharge Orders: Discharge Order (Routine); Ordered 03/21/20 Ordered By: Jing Brown Referrals: Tory Lopez MD [Physician] - (You have a cardiology follow up with Dr. Lopez at [facility] on April 11 at 3:15pm.) Kp Montanez DO [Primary Care Provider] - 4-7 days (You have a hospital discharge follow up with Dr. Montanez at [facility] on March 29 at 8:30am. ) Discharge Diet: Cardiac, Diabetic and GI Soft Discharge Activity: Increase activity as tolerated Patient Instructions: Omeprazole/Sodium Bicarbonate (By mouth) Discharge Attestations Time Spent in Discharge Care*: greater than 30 min Specific Discharge Activities: Specific discharge activities: educating patient, educating and/or supporting family/caregiver, discussing with renal case manager/social workers/dc planners, documenting/other paperwork and evaluating patient/reviewing data Status at Discharge: Cognitive status at discharge: cognitively intact, Behavioral status at discharge: cooperative and independent in ADL's, Overall status at discharge: patient is progressing back to baseline Quality Metrics Clinical Quality Measures During this hospital stay, did patient experience: None Coding Level of Care Code Acute Drug Abuse Resistance Education Officer for g Fwd Exam Comprehensive Diagnoses Chest pain R07.9 Chest pain type: unspecified Systolic CHF I50.22 Heart failure chronicity: chronic Dehydration E86.0 Renal failure (ARF), acute on chronic N17.9; N18.32 Acute renal failure type: unspecified Chronic kidney disease stage: stage 3 (moderate) Chronic kidney disease stage 3 subtype: stage 3b (GFR 30-44)
[2020-03-21] MEDS: metoprolol tartrate 50 mg Tablet PO (08:18)
[2020-03-21] MEDS: aspirin 81 mg EC Tablet PO (08:18)
[2020-03-21] MEDS: clopidogrel 75 mg Tablet PO (08:18)
[2020-03-21] MEDS: atorvastatin 40 mg Tablet PO (08:18)
[2020-03-21] MEDS: citalopram 20 mg Tablet PO (08:18)
[2020-03-21] MEDS: heparin 5,000 unit/mL INJ 1 mL 5000 UNIT SUBCUT (08:18)
[2020-03-21] MEDS: levothyroxine 88 mcg Tablet PO (08:18)
[2020-03-21] MEDS: isosorbide mononitrate ER 30 mg Tablet PO (08:18)
[2020-03-21 09:57] VITALS: BP 129/77; PULSE 67; RESP 16; TEMP 36.4; O2SAT 93
--- NOTE | 2020-03-21 11:12 | PC.NURSE ---
1100 patient discharge at this time discharge instructions provided and educated on new medications patient port de-accessed patient assisted to wheel chair and accompanied to POV by staff patient alert and oriented in stable condition
== END 2020-03-21 11:01 | disposition home or self-care (01) | DRG 292 ==
LOC: ER 08:07 → MEDSURG 08:12 → CSU 03-19 14:08
PROVIDERS: Emergency Medicine; Student in an Organized Health Care Education/Training Program; Admitting Provider Family Medicine; PCP Internal Medicine; Visit Provider Family Medicine
DX: I13.0 Hypertensive heart and chronic kidney disease with heart failure and stage 1 through stage 4 chronic kidney disease, or unspecified chronic kidney disease (principal); I50.22 Chronic systolic (congestive) heart failure; N17.9 Acute kidney failure, unspecified; E03.9 Hypothyroidism, unspecified; E78.5 Hyperlipidemia, unspecified; E66.01 Morbid (severe) obesity due to excess calories; Z68.37 Body mass index [BMI] 37.0-37.9, adult; N18.32 Chronic kidney disease, stage 3b; Z79.84 Long term (current) use of oral hypoglycemic drugs; E11.22 Type 2 diabetes mellitus with diabetic chronic kidney disease; Z79.82 Long term (current) use of aspirin; Z79.02 Long term (current) use of antithrombotics/antiplatelets; E86.0 Dehydration; I25.10 Atherosclerotic heart disease of native coronary artery without angina pectoris; Z95.5 Presence of coronary angioplasty implant and graft; Z86.711 Personal history of pulmonary embolism; Z20.828 Contact with and (suspected) exposure to other viral communicable diseases; F32.9 Major depressive disorder, single episode, unspecified; M21.372 Foot drop, left foot; I25.5 Ischemic cardiomyopathy
CPT/HCPCS: 12345; 36415; 36416; 36591; 74176; 76870; 80048; 80053; 81003; 82962; 83605; 83690; 83735; 83880; 84443; 84484; 85025; 85378; 87426; 87635; 93005; 93306; 93970; 96372; 96375; 99284; C9113; G0378; J1644; J1650; J1815; J2270; J2550; J7030; Q0163; Q0169

== ENCOUNTER 2020-03-22 10:31 | Outpatient (RCR) | payer SELFPAY ==
--- NOTE | 2020-03-21 17:40 | PM.PN ---
Subjective Subjective: Interval history: Denies any more chest pain. Medications: Reviewed: Yes Physical Exam Narrative: EXAM NARRATIVE: GENERAL: Patient is alert, awake and oriented x3. NECK: No jugular vein distension. HEENT: No cyanosis. No icterus. No pallor. HEART: Regular S1 and S2. No murmur, rub or gallop. LUNGS: Clear to auscultate bilaterally. ABDOMEN: Soft, nontender and nondistended. Positive bowel sounds. No guarding, rebound or tenderness. CENTRAL NERVOUS SYSTEM: Grossly nonfocal. EXTREMITIES: Lower extremities without edema bilaterally. A&P Assessment and plan (1) Hypertension: Well-controlled Status: Acute Qualifiers: Hypertension type: essential hypertension Qualified Code(s): I10 - Essential (primary) hypertension (2) Chronic systolic heart failure: Stable and well compensated. Status: Acute (3) Chest pain: Chest pain atypical and noncardiac in origin. Continue current regimen advised nitro patch 0.4 mg every 24 hours. Advised to follow-up with cardiology. Advised in case of worsening of chest pain shortness of breath he should come back to the hospital. Status: Chronic Qualifiers: Chest pain type: unspecified Qualified Code(s): R07.9 - Chest pain, unspecified Attestations Medical Necessity Statement*: Require continuation hospitalization for above defined care Coding Level of Care Code Established Pt Acute Speech Therapist Early Intervention for Radhag Fwd Patient Type Established History Expanded Problem Focused Exam Expanded Problem Focused Medical Decision Making Moderate Complexity Diagnoses Hypertension I10 Hypertension type: essential hypertension Chronic systolic heart failure I50.22 Chest pain R07.9 Chest pain type: unspecified
== END 2020-04-18 23:59 | disposition home or self-care (01) ==
LOC: CR 10:31
PROVIDERS: PCP Internal Medicine; Referring Provider Internal Medicine Cardiovascular Disease; Visit Provider Internal Medicine Cardiovascular Disease
DX: I10 Essential (primary) hypertension (principal); R07.9 Chest pain, unspecified; I50.22 Chronic systolic (congestive) heart failure
CPT/HCPCS: 12345

== ENCOUNTER 2020-03-30 12:58 | Emergency (ER) | payer MEDICARE, MEDICAID, SELFPAY ==
[2020-03-30 12:59] VITALS: BP 138/91; PULSE 87; RESP 20; TEMP 36.4; O2SAT 97; BMI 35.2
--- NOTE | 2020-03-30 13:01 | XR_ITS ---
WS: [id number] Portable AP upright chest, 03/30/2020 Clinical Data: cp Comparison: Portable chest, 03/12/2020. Findings: No nodules, masses or effusions are seen. The heart is normal. The pulmonary vascularity is not increased. No pneumonia or pneumothorax is seen. There is an infusion catheter entering from the left and ending in the superior vena cava. Midline sternotomy sutures are seen. XR/XR chest 1V portable [id number] Impression: Negative chest.
--- NOTE | 2020-03-30 13:01 | ECG_ITS ---
[facility] Test Date: 2020-03-30 Pat Name: Rei Queen Department: Room: Gender: Male Insulation Manager: : 1970 Requested By: Moses Gauthier Order Number: [id number] Becky MD: Garrison Mckinney M.D. Measurements Intervals [place] Rate: 86 P: 9 MI: 155 QRS: -39 QRSD: 98 T: 81 QT: 317 QTc: 380 Interpretive Statements SINUS RHYTHM MARKED LEFT AXIS DEVIATION [QRS AXIS < -30] POSSIBLE ANTERIOR MYOCARDIAL INFARCTION [30 ms Q WAVE IN V3/V4, OR R < 0.2 mV IN V4], OF INDETERMINATE AGE POSSIBLE INFERIOR INFARCTION Compared to ECG 03/19/2020 18:38:32 Left-axis deviation now present T-wave abnormality no longer present Possible ischemia no longer present Myocardial infarct finding still present Electronically Signed On 03-30-2020 16:08:45 DEPUTY GRAND JURY by Garrison Mckinney M.D. [email or web address]
--- NOTE | 2020-03-30 15:01 | ECG_ITS ---
[facility] Test Date: 2020-03-30 Pat Name: Rei Queen Department: Room: Gender: Male Application Development Consultant: : 1970 Requested By: Moses Gauthier Order Number: [id number] Becky MD: Garrison Mckinney M.D. Measurements Intervals [place] Rate: 79 P: 18 UT: 163 QRS: -18 QRSD: 102 T: 95 QT: 351 QTc: 405 Interpretive Statements SINUS RHYTHM POSSIBLE ANTERIOR MYOCARDIAL INFARCTION , OF INDETERMINATE AGE [30 ms Q WAVE IN V3/V4, OR R < 0.2 mV IN V4] Compared to ECG 03/30/2020 12:58:04 Left-axis deviation no longer present Myocardial infarct finding still present Electronically Signed On 03-30-2020 17:26:39 COPPING MACHINE OPERATOR by Garrison Mckinney M.D. [id number]
[2020-03-30 16:03] VITALS: BP 131/87; PULSE 80; RESP 27; O2SAT 98; O2SAT 99
[2020-03-30 16:22] LABS: Basophils # 0.1 10^3/uL (0.0-0.1); Basophils % 0.8 %; Eosinophils # 0.2 10^3/uL (0.0-0.8); Eosinophils % 2.2 %; Hematocrit 33.8 % (42.0-52.0); Hemoglobin 11.1 g/dL (11.7-16.6); Lymphocytes # 1.6 10^3/uL (0.8-4.8); Lymphocytes % 17.2 %; Mean Corpuscular HGB Conc 32.8 g/dL (30.0-36.0); Mean Corpuscular Hemoglobin 29.1 pg (28.0-34.0); Mean Corpuscular Volume 88.7 fL (80-94); Mean Platelet Volume 9.7 fL (7.4-10.4); Monocytes # 0.7 10^3/uL (0.2-0.9); Monocytes % 7.9 %; Neutrophils % 71.6 %; Nucleated Red Blood Cells % 0 %; Platelet Count 313 10^3/cmm (130-400); Red Blood Count 3.81 10^6/uL (4.1-5.3); Red Cell Distribution Width 15.1 % (12.1-15.1); White Blood Count 9.2 10^3/uL (4.0-10.0)
[2020-03-30 16:35] LABS: Alanine Aminotransferase 19 U/L (0-41); Albumin Level 4.1 g/dL (3.5-5.2); Alkaline Phosphatase 153 IU/L (40-130); Anion Gap 15.1 (5-19); Aspartate Amino Transferase 15 U/L (0-40); Blood Urea Nitrogen 52 mg/dL (6-20); Calcium 9.4 mg/dL (8.5-10.5); Carbon Dioxide 24 mmol/L (22-29); Chloride 95 mmol/L (98-107); Globulin 1.9 g/dL (1.3-4.6); Glomerular Filtration Rate 35.4 mL/min (90-130); Glucose 361 mg/dL (65-115); Osmolality Calculated 297 mOsm/kg (285-295); Potassium 5.1 mmol/L (3.5-5.1); Sodium 129 mmol/L (136-145); Total Bilirubin 0.5 mg/dL (0.15-1.2)
[2020-03-30 16:36] LABS: Troponin(5th) Baseline 33 ng/L (0-15)
--- NOTE | 2020-03-30 16:37 | ED_ITS ---
Documented by User: Timo Mckoy DO 04/04/20 08:09 HPI - Chest Pain General: Chief Complaint: Chest Pain Stated Complaint: CP Time Seen by Provider: 03/30/20 13:09 History of Present Illness: HPI narrative: Rei Queen the second is a 49-year-old male who frequently comes to the emergency room with a complaint of chest pain. He has been here multiple times in the past he has also had multiple heart catheterizations. Most recently in November of this year which was done by Dr. Bejarano his note was reviewed essentially it was normal. It was done at that time despite a normal stress test because he continued to have chest pain. Him and his are under the impression that if he continued to have chest pain they would do yet another heart catheterization. They returned today stating that he had chest pain he took 3 nitros at home had no improvement of the discomfort and he presents now anticipating admission for another heart catheterization. He has not had any radiation of the pain to the neck or arms. He also states he has had blood clots in the past although he is not particularly red short of breath though this is not had any swelling in his legs. He has no other ongoing issues no recent flulike symptoms cough or shortness of breath. Unfortunately the patient does have a known history of coronary disease and has previously had stents. MD complaint: chest pain Pertinent past history: coronary artery disease Onset (ago): minute(s) Timing of current episode: episodic and now resolved Prior episodes: Yes Onset: during rest and during exertion Pain location: left chest Pain radiation: none Severity: moderate Quality: heaviness Relieving factors: nothing Exacerbating factors: nothing Associated symptoms: Deny abdominal pain, diaphoresis, dyspnea, fever(s), leg edema, nausea, palpitations, sense of impending doom, syncope or vomiting Treatment prior to arrival: nitroglycerin (No relief) Review of Systems Const: Denies: fever(s) or diaphoresis ENMT: Denies: throat pain, ear or mastoid pain, nasal discharge or nasal congestion Card: Denies: palpitations or syncope Resp: Denies: dyspnea GI: Denies: abdominal pain, nausea or vomiting : Denies: flank pain, dysuria, urinary frequency or urinary urgency Skin/Breast: Denies: rash or pruritus PFS ED PFSH: Medical History Anemia Atherosclerotic heart disease of [place] coronary artery with other forms of angina pectoris -hx of CAD with prior stenting of proximal LAD, LCx, RCA Benign essential hypertension with target blood pressure below 140/90 CAD (coronary artery disease) Cardiomyopathy CHF (congestive heart failure) Chronic anticoagulation Chronic kidney disease -baseline Cr appears to be around 1.5 Chronic renal insufficiency Chronic systolic heart failure EF=47%, diffuse LV hypokinesis, mildly increased LA size CKD (chronic kidney disease) Compartment syndrome Depression Diabetes -on ISS, accuchecks, hypoglycemia precautions; A1c-7.6 (08/2019) Foot drop, left H/O acute myocardial infarction H/O deep venous thrombosis Hyperlipidemia Hypertension Hypothyroidism Ischemic cardiomyopathy Obesity (BMI 30-39.9) Osteoarthritis of spine Port-A-Cath in place Renal failure (ARF), acute on chronic -baseline Cr appears to be around 1.5 -renally dose meds, avoid nephrotoxins -stable renal function; s/p IVF Subcutaneous mass of back Lipoma Systolic CHF -no evidence of acute exacerbation currently -resume diuretics -Echo: EF=50%, G1DD, trace MR, trace TR, trace AR, mild MO -BNP-337 Unstable angina pectoris Surgical History H/O colonoscopy 08/2015 H/O esophagogastroduodenoscopy 08/2015 H/O removal of testicle left H/O skin graft H/O vasectomy History of appendectomy History of coronary artery stent placement 5x History of excision of mass 06/08/2019: Subcutaneous mass on back History of inguinal hernia repair, bilateral 1999 History of removal of Port-a-Cath Hx of cholecystectomy Family History Grandfather Cancer skin cancer Parkinson disease Brother Hypertension Father Heart disease Mother Hypertension Stroke Aneurysm Grandmother Aneurysm Other Crohn disease Denies family history of Anesthesia complication Bleeding disorder Social History Smoking and tobacco status: never smoked Alcohol intake: former Former alcohol use details: Only holidays Lives independently: Yes Household members: significant other Marital status: Single Current occupational status: disabled History of recent travel: No Physical Exam Const: COMMON NORMALS: no acute distress GENERAL APPEARANCE: cooperative and comfortable ORIENTATION/CONSCIOUSNESS: Yes awake, Yes oriented to person, Yes oriented to place and Yes oriented to time HENMT: COMMON NORMALS: normocephalic, atraumatic and hearing grossly normal bilaterally HEAD & SCALP: normocephalic and atraumatic Eye: COMMON NORMALS: Equal, round and reactive pupils present, EOMs intact bilaterally, conjunctivae normal and no scleral icterus CONJUNCTIVA: Yes conjunctivae normal PUPIL: Yes Equal, round and reactive pupils present Neck/C-Spine: COMMON NORMALS: no JVD Resp: COMMON NORMALS: normal respiratory effort, No retractions, No use of accessory muscles and clear to auscultation bilaterally AUSCULTATION: clear to auscultation bilaterally Cardio: COMMON NORMALS: no JVD, regular rate, regular rhythm and No murmurs present (Cardio) RATE: regular rate RHYTHM: regular rhythm GI: COMMON NORMALS: Soft to palpation and No hepatosplenomegaly present AUSCULTATION: Yes normoactive bowel sounds PALPATION: Yes Soft to palpation, No Tenderness to palpation present (GI), No Guarding due to palpation present (GI) and Yes No hepatosplenomegaly present Extremity: COMMON NORMALS: normal to inspection, capillary refill normal, no clubbing, cyanosis or edema, no calf tenderness and no pedal edema Neuro: SENSORIUM/ORIENTATION: Yes oriented to person, Yes oriented to place and Yes oriented to time Skin: COMMON NORMALS: no rashes or lesions noted GENERAL SKIN EXAM: no rashes or lesions noted Course Vital Signs: Vital signs: Vital Signs Temperature 97.9 F 03/30/20 20:56 Pulse Rate 82 03/30/20 20:56 Respiratory Rate 18 03/30/20 20:56 Blood Pressure 109/79 03/30/20 20:56 Pulse Oximetry 97 03/30/20 20:56 MDM - Chest Pain MDM Narrative: Medical decision making narrative: Care transferred to Dr. Lopez at change of shift. I had discussed with Dr. Benavides he anticipates outpatient follow-up pending no delta change on the troponin. Lab Data: Labs: Lab Results 03/30/20 03/30/20 03/30/20 Range/Units 15:49 15:49 15:49 WBC 9.2 (4.0-10.0) 10^3/ uL RBC 3.81 L (4.1-5.3) 10^6/u L Hgb 11.1 L (11.7-16.6) g/dL Hct 33.8 L (42.0-52.0) % MCV 88.7 (80-94) fL MCH 29.1 (28.0-34.0) pg MCHC 32.8 (30.0-36.0) g/dL RDW 15.1 (12.1-15.1) % Plt Count 313 (130-400) 10^3/c mm MPV 9.7 (7.4-10.4) fL Neut % (Auto) 71.6 % Lymph % (Auto) 17.2 % [place] % (Auto) 7.9 % Eos % (Auto) 2.2 % Baso % (Auto) 0.8 % Neut # (Auto) 6.60 (1.8-7.7) 10^3/u L Lymph # (Auto) 1.6 (0.8-4.8) 10^3/u L [place] # (Auto) 0.7 (0.2-0.9) 10^3/u L Eos # (Auto) 0.2 (0.0-0.8) 10^3/u L Baso # (Auto) 0.1 (0.0-0.1) 10^3/u L Nucleated RBC % (a uto) 0 % Nucleated RBCs # 0.0 /100WBC D-Dimer (0-0.59) ug/mIFE U Sodium 129 L (136-145) mmol/L Potassium 5.1 (3.5-5.1) mmol/L Chloride 95 L (98-107) mmol/L Carbon Dioxide 24 (22-29) mmol/L Anion Gap 15.1 (5-19) BUN 52 H (6-20) mg/dL Creatinine 2.0 H (0.7-1.2) mg/dL GFR Calculation 35.4 L (90-130) mL/min Glucose 361 H (65-115) mg/dL Calculated Osmolal ity 297 H (285-295) mOsm/k g Calcium 9.4 (8.5-10.5) mg/dL Total Bilirubin 0.5 (0.15-1.2) mg/dL AST 15 (0-40) U/L ALT 19 (0-41) U/L Alkaline Phosphata se 153 H (40-130) IU/L Troponin T Baselin e 33 H (0-15) ng/L Troponin T 120 Min [place] band (0-15) ng/L Delta Troponin T (0-10) ABS# Total Protein 6.0 L (6.6-8.7) g/dL Albumin 4.1 (3.5-5.2) g/dL Globulin 1.9 (1.3-4.6) g/dL 03/30/20 03/30/20 Range/Units 15:49 18:20 WBC (4.0-10.0) 10^3/ uL RBC (4.1-5.3) 10^6/u L Hgb (11.7-16.6) g/dL Hct (42.0-52.0) % MCV (80-94) fL MCH (28.0-34.0) pg MCHC (30.0-36.0) g/dL RDW (12.1-15.1) % Plt Count (130-400) 10^3/c mm MPV (7.4-10.4) fL Neut % (Auto) % Lymph % (Auto) % [place] % (Auto) % Eos % (Auto) % Baso % (Auto) % Neut # (Auto) (1.8-7.7) 10^3/u L Lymph # (Auto) (0.8-4.8) 10^3/u L [place] # (Auto) (0.2-0.9) 10^3/u L Eos # (Auto) (0.0-0.8) 10^3/u L Baso # (Auto) (0.0-0.1) 10^3/u L Nucleated RBC % (a uto) % Nucleated RBCs # /100WBC D-Dimer 0.41 (0-0.59) ug/mIFE U Sodium (136-145) mmol/L Potassium (3.5-5.1) mmol/L Chloride (98-107) mmol/L Carbon Dioxide (22-29) mmol/L Anion Gap (5-19) BUN (6-20) mg/dL Creatinine (0.7-1.2) mg/dL GFR Calculation (90-130) mL/min Glucose (65-115) mg/dL Calculated Osmolal ity (285-295) mOsm/k g Calcium (8.5-10.5) mg/dL Total Bilirubin (0.15-1.2) mg/dL AST (0-40) U/L ALT (0-41) U/L Alkaline Phosphata se (40-130) IU/L Troponin T Baselin e (0-15) ng/L Troponin T 120 Min [place] band 29.92 H (0-15) ng/L Delta Troponin T -3.08 L (0-10) ABS# Total Protein (6.6-8.7) g/dL Albumin (3.5-5.2) g/dL Globulin (1.3-4.6) g/dL Discharge Plan Discharge Patient Disposition: Home Clinical Impression: Chest pain Qualifiers: Chest pain type: unspecified Qualified Code(s): R07.9 - Chest pain, unspecified Condition: Stable Prescriptions: No Action isosorbide mononitrate 30 mg tablet extended release 24 hr 30 mg PO BID RF: 0 (DME) diabetic shoes Qty: 1 RF: 0 multivitamin [Daily Multi-Vitamin] Tablet 1 tab PO QAM RF: 0 citalopram 10 mg tablet 20 mg PO DAILY RF: 0 methocarbamol 750 mg tablet 750 mg PO TID PRN (Reason: Muscle Spasm) RF: 0 levothyroxine 88 mcg capsule 88 mcg PO DAILY RF: 0 metoprolol tartrate 50 mg tablet 50 mg PO BID RF: 0 metformin 500 mg tablet 500 mg PO BID RF: 0 Trulicity 0.75 mg/0.5 mL pen injector 0.75 mg SUBCUT Q7D RF: 0 furosemide [Lasix] 40 mg tablet 40 mg PO QAM RF: 0 aspirin 81 mg tablet,delayed release (DR/EC) 81 mg PO DAILY RF: 0 (DME) BYRON MCKINLEY See Rx Instructions .Route .MEDSUPPLY Qty: 1 RF: 0 (DME) Elizabeth See Rx Instructions .Route .MEDSUPPLY Qty: 1 RF: 0 nitroglycerin [Nitrostat] 0.4 mg tablet, sublingual 0.4 mg SUBLINGUAL Q5M PRN (Reason: Chest Pain) Qty: 30 RF: 2 amlodipine 10 mg tablet 10 mg PO DAILY Qty: 90 RF: 2 clopidogrel 75 mg tablet 75 mg PO DAILY Qty: 90 RF: 3 atorvastatin 40 mg tablet 40 mg PO DAILY Qty: 30 RF: 5 omeprazole 20 mg capsule,delayed release(DR/EC) 20 mg PO DAILY 28 Days Qty: 30 RF: 0 nitroglycerin 0.4 mg/hr patch 24 hour 1 patch TRANSDERMA DAILY Qty: 30 RF: 0 cyclobenzaprine 10 mg tablet 10 mg PO TID PRN (Reason: MUSCLE SPASMS) RF: 0 promethazine 25 mg tablet 25 mg PO TID PRN (Reason: nausea and vomiting) Qty: 20 RF: 0 lisinopril 10 mg Tablet 10 mg PO DAILY RF: 0 Discharge Orders: Discharge Order (Routine); Ordered 03/30/20 Ordered By: Apryl Graves Referrals: Rosi Vee MD [Physician] - 1-3 days Kp Montanez DO [Primary Care Provider] - Discharge Diet: Advance as tolerated Discharge Activity: Limit activity as instructed Patient Instructions: Chest Pain (ED) Activity Restrictions/Additional Instructions: Please return to the ER immediately for any of the signs or symptoms listed on your discharge instruction sheets, worsening/changing of your symptoms, you are not getting better as quickly as expected, or for ANY other cause or concerns. Be certain to call first thing in the morning for an appointment to be seen by Dr. Christa Marinelli or the nurse practitioner that works in their office. Be certain to place your nitroglycerin patch on as soon as you get home. Take all your medications otherwise as instructed. Return to the ER for chest pain, shortness of breath, you break out in a sweat, or for any other cause for concern. Coding Level of Care Code ED Home Health Clinician for Chg Fwd Exam Comprehensive Documented by User: Apryl Graves 03/30/20 19:58 HPI - Chest Pain General: Chief Complaint: Chest Pain Stated Complaint: CP Time Seen by Provider: 03/30/20 13:09 [facility] ED [facility]: Medical History Anemia Atherosclerotic heart disease of [place] coronary artery with other forms of angina pectoris -hx of CAD with prior stenting of proximal LAD, LCx, RCA Benign essential hypertension with target blood pressure below 140/90 CAD (coronary artery disease) Cardiomyopathy CHF (congestive heart failure) Chronic anticoagulation Chronic kidney disease -baseline Cr appears to be around 1.5 Chronic renal insufficiency Chronic systolic heart failure EF=47%, diffuse LV hypokinesis, mildly increased LA size CKD (chronic kidney disease) Compartment syndrome Depression Diabetes -on ISS, accuchecks, hypoglycemia precautions; A1c-7.6 (08/2019) Foot drop, left H/O acute myocardial infarction H/O deep venous thrombosis Hyperlipidemia Hypertension Hypothyroidism Ischemic cardiomyopathy Obesity (BMI 30-39.9) Osteoarthritis of spine Port-A-Cath in place Renal failure (ARF), acute on chronic -baseline Cr appears to be around 1.5 -renally dose meds, avoid nephrotoxins -stable renal function; s/p IVF Subcutaneous mass of back Lipoma Systolic CHF -no evidence of acute exacerbation currently -resume diuretics -Echo: EF=50%, G1DD, trace MR, trace TR, trace AR, mild MO -BNP-337 Unstable angina pectoris Surgical History H/O colonoscopy 08/2015 H/O esophagogastroduodenoscopy 08/2015 H/O removal of testicle left H/O skin graft H/O vasectomy History of appendectomy History of coronary artery stent placement 5x History of excision of mass 06/08/2019: Subcutaneous mass on back History of inguinal hernia repair, bilateral 2000 History of removal of Port-a-Cath Hx of cholecystectomy Family History Grandfather Cancer skin cancer Parkinson disease Brother Hypertension Father Heart disease Mother Hypertension Stroke Aneurysm Grandmother Aneurysm Other Crohn disease Denies family history of Anesthesia complication Bleeding disorder Social History Smoking and tobacco status: never smoked Alcohol intake: former Former alcohol use details: Only holidays Lives independently: Yes Household members: significant other Marital status: Single Current occupational status: disabled History of recent travel: No Course Vital Signs: Vital signs: Vital Signs Temperature 97.9 F 03/30/20 20:56 Pulse Rate 82 03/30/20 20:56 Respiratory Rate 18 03/30/20 20:56 Blood Pressure 109/79 03/30/20 20:56 Pulse Oximetry 97 03/30/20 20:56 MDM - Chest Pain MDM Narrative: Medical decision making narrative: 1899 -Case inherited by me at change of shift from Dr. Mckoy. Please see his notes for his history, physical exam and medical decision-making notes. Patient's history to me as his typical type of pain. It has been intermittent throughout the day. Up to this point he has had a normal for him initial troponin we are waiting a second EKG and second troponin. Case had previously been reviewed with Dr. Benavides by Dr. Mckoy who felt that The Patient Would Not Need a Repeat Heart Cath As His Images from November of This Year Showed a without any sign of significant blockage that would need to be intervened upon. 1929 -Case reviewed with me with Dr. Tee, he states that sometimes the patient will not wear his nitro patch which he is prescribed for his pain and indeed upon further questioning the patient has not worn his Nitropatch today. His second EKG is unchanged from his normal and his second troponin is within the normal range for him. There is a negative delta. Patient does have a history of DVT/PEs and he stopped taking Eliquis quite some time ago. I will go and check a D-dimer and if positive we may have to proceed with a ventilation/perfusion scan. 1956 -patient's D-dimer is negative and his pain is gone. He declines any further evaluation and care would like to go home. After discussing his previous heart cath with Dr. Benavides and discovering the patient has had this pain before and today was not compliant with wearing his nitroglycerin patch I am comfortable sending him home patient understands though if he has any recurrence of his symptoms at all he will need to return to the ER immediately. Patient when asked that he wanted to go home and declined any further care but does agree to follow-up with Dr. Benavides or someone in that office tomorrow or Saturday for recheck. When reviewing the case with Dr. Benavides he stated that someone could see him in that timeframe. Lab Data: Labs: Lab Results 03/30/20 03/30/20 03/30/20 Range/Units 15:49 15:49 15:49 WBC 9.2 (4.0-10.0) 10^3/ uL RBC 3.81 L (4.1-5.3) 10^6/u L Hgb 11.1 L (11.7-16.6) g/dL Hct 33.8 L (42.0-52.0) % MCV 88.7 (80-94) fL MCH 29.1 (28.0-34.0) pg MCHC 32.8 (30.0-36.0) g/dL RDW 15.1 (12.1-15.1) % Plt Count 313 (130-400) 10^3/c mm MPV 9.7 (7.4-10.4) fL Neut % (Auto) 71.6 % Lymph % (Auto) 17.2 % [place] % (Auto) 7.9 % Eos % (Auto) 2.2 % Baso % (Auto) 0.8 % Neut # (Auto) 6.60 (1.8-7.7) 10^3/u L Lymph # (Auto) 1.6 (0.8-4.8) 10^3/u L [place] # (Auto) 0.7 (0.2-0.9) 10^3/u L Eos # (Auto) 0.2 (0.0-0.8) 10^3/u L Baso # (Auto) 0.1 (0.0-0.1) 10^3/u L Nucleated RBC % (a uto) 0 % Nucleated RBCs # 0.0 /100WBC D-Dimer (0-0.59) ug/mIFE U Sodium 129 L (136-145) mmol/L Potassium 5.1 (3.5-5.1) mmol/L Chloride 95 L (98-107) mmol/L Carbon Dioxide 24 (22-29) mmol/L Anion Gap 15.1 (5-19) BUN 52 H (6-20) mg/dL Creatinine 2.0 H (0.7-1.2) mg/dL GFR Calculation 35.4 L (90-130) mL/min Glucose 361 H (65-115) mg/dL Calculated Osmolal ity 297 H (285-295) mOsm/k g Calcium 9.4 (8.5-10.5) mg/dL Total Bilirubin 0.5 (0.15-1.2) mg/dL AST 15 (0-40) U/L ALT 19 (0-41) U/L Alkaline Phosphata se 153 H (40-130) IU/L Troponin T Baselin e 33 H (0-15) ng/L Troponin T 120 Min [place] band (0-15) ng/L Delta Troponin T (0-10) ABS# Total Protein 6.0 L (6.6-8.7) g/dL Albumin 4.1 (3.5-5.2) g/dL Globulin 1.9 (1.3-4.6) g/dL 03/30/20 03/30/20 Range/Units 15:49 18:20 WBC (4.0-10.0) 10^3/ uL RBC (4.1-5.3) 10^6/u L Hgb (11.7-16.6) g/dL Hct (42.0-52.0) % MCV (80-94) fL MCH (28.0-34.0) pg MCHC (30.0-36.0) g/dL RDW (12.1-15.1) % Plt Count (130-400) 10^3/c mm MPV (7.4-10.4) fL Neut % (Auto) % Lymph % (Auto) % [place] % (Auto) % Eos % (Auto) % Baso % (Auto) % Neut # (Auto) (1.8-7.7) 10^3/u L Lymph # (Auto) (0.8-4.8) 10^3/u L [place] # (Auto) (0.2-0.9) 10^3/u L Eos # (Auto) (0.0-0.8) 10^3/u L Baso # (Auto) (0.0-0.1) 10^3/u L Nucleated RBC % (a uto) % Nucleated RBCs # /100WBC D-Dimer 0.41 (0-0.59) ug/mIFE U Sodium (136-145) mmol/L Potassium (3.5-5.1) mmol/L Chloride (98-107) mmol/L Carbon Dioxide (22-29) mmol/L Anion Gap (5-19) BUN (6-20) mg/dL Creatinine (0.7-1.2) mg/dL GFR Calculation (90-130) mL/min Glucose (65-115) mg/dL Calculated Osmolal ity (285-295) mOsm/k g Calcium (8.5-10.5) mg/dL Total Bilirubin (0.15-1.2) mg/dL AST (0-40) U/L ALT (0-41) U/L Alkaline Phosphata se (40-130) IU/L Troponin T Baselin e (0-15) ng/L Troponin T 120 Min [place] band 29.92 H (0-15) ng/L Delta Troponin T -3.08 L (0-10) ABS# Total Protein (6.6-8.7) g/dL Albumin (3.5-5.2) g/dL Globulin (1.3-4.6) g/dL Imaging Data^: CXR: Attestation: I personally reviewed and interpreted this imaging study as follows: My impression: No acute cardiopulmonary findings. EKG Data^: EKG 2: Attestation: I personally reviewed and interpreted this EKG as follows: EKG interpretation date: 03/30/20 EKG interpretation time: 18:55 Interpretation: Normal sinus rhythm at 80 beats a minute, no blocks, normal intervals, nonspecific ST and T wave changes. Unchanged from previous. Discharge Plan Discharge Patient Disposition: Home Clinical Impression: Chest pain Qualifiers: Chest pain type: unspecified Qualified Code(s): R07.9 - Chest pain, unspecified Condition: Stable Prescriptions: No Action isosorbide mononitrate 30 mg tablet extended release 24 hr 30 mg PO BID RF: 0 (DME) diabetic shoes Qty: 1 RF: 0 multivitamin [Daily Multi-Vitamin] Tablet 1 tab PO QAM RF: 0 citalopram 10 mg tablet 20 mg PO DAILY RF: 0 methocarbamol 750 mg tablet 750 mg PO TID PRN (Reason: Muscle Spasm) RF: 0 levothyroxine 88 mcg capsule 88 mcg PO DAILY RF: 0 metoprolol tartrate 50 mg tablet 50 mg PO BID RF: 0 metformin 500 mg tablet 500 mg PO BID RF: 0 Trulicity 0.75 mg/0.5 mL pen injector 0.75 mg SUBCUT Q7D RF: 0 furosemide [Lasix] 40 mg tablet 40 mg PO QAM RF: 0 aspirin 81 mg tablet,delayed release (DR/EC) 81 mg PO DAILY RF: 0 (DME) CAM WALKER See Rx Instructions .Route .MEDSUPPLY Qty: 1 RF: 0 (DME) [place] See Rx Instructions .Route .MEDSUPPLY Qty: 1 RF: 0 nitroglycerin [Nitrostat] 0.4 mg tablet, sublingual 0.4 mg SUBLINGUAL Q5M PRN (Reason: Chest Pain) Qty: 30 RF: 2 amlodipine 10 mg tablet 10 mg PO DAILY Qty: 90 RF: 2 clopidogrel 75 mg tablet 75 mg PO DAILY Qty: 90 RF: 3 atorvastatin 40 mg tablet 40 mg PO DAILY Qty: 30 RF: 5 omeprazole 20 mg capsule,delayed release(DR/EC) 20 mg PO DAILY 28 Days Qty: 30 RF: 0 nitroglycerin 0.4 mg/hr patch 24 hour 1 patch TRANSDERMA DAILY Qty: 30 RF: 0 cyclobenzaprine 10 mg tablet 10 mg PO TID PRN (Reason: MUSCLE SPASMS) RF: 0 promethazine 25 mg tablet 25 mg PO TID PRN (Reason: nausea and vomiting) Qty: 20 RF: 0 lisinopril 10 mg Tablet 10 mg PO DAILY RF: 0 Discharge Orders: Discharge Order (Routine); Ordered 03/30/20 Ordered By: Apryl Graves Referrals: Rosi Vee MD [Physician] - 1-3 days Kp Montanez DO [Primary Care Provider] - Discharge Diet: Advance as tolerated Discharge Activity: Limit activity as instructed Patient Instructions: Chest Pain (ED) Activity Restrictions/Additional Instructions: Please return to the ER immediately for any of the signs or symptoms listed on your discharge instruction sheets, worsening/changing of your symptoms, you are not getting better as quickly as expected, or for ANY other cause or concerns. Be certain to call first thing in the morning for an appointment to be seen by Dr. Benavides, Dr. Goodwin or the nurse practitioner that works in their office. Be certain to place your nitroglycerin patch on as soon as you get home. Take all your medications otherwise as instructed. Return to the ER for chest pain, shortness of breath, you break out in a sweat, or for any other cause for concern. Coding Level of Care Code ED Home Health Clinician for Aaron Fwd Exam Comprehensive
[2020-03-30] MEDS: lidocaine 2% viscous 15 ML, aluminum-mag hydrox-simethicon 30 ML, sucralfate oral liq 1 GM PO (18:14)
[2020-03-30] MEDS: promethazine 25 mg/mL SDV 1 mL 12.5 MG IM (18:14)
[2020-03-30 18:37] VITALS: BP 134/72; PULSE 82; RESP 23; O2SAT 97
--- NOTE | 2020-03-30 18:41 | PC.NURSE ---
pt and pt's spouse upset with care today. stating that they don't feel like the chest pain complaints are being taken serious. ED provider notified.
[2020-03-30 18:54] LABS: Troponin 5 2HR 29.92 ng/L (0-15)
[2020-03-30 18:57] LABS: Troponin 5 2HR Delta -3.08 ABS# (0-10)
[2020-03-30 19:00] VITALS: BP 150/91; PULSE 92; RESP 16; O2SAT 96
--- NOTE | 2020-03-30 19:01 | ECG_ITS ---
[facility] Test Date: 2020-03-30 Pat Name: Rei Queen Department: Room: Gender: Male Development Specialist: : 1970 Requested By: Moses Gauthier Order Number: [id number] Pena MD: Tory Lopez M.D. Measurements Intervals [place] Rate: 80 P: 19 RI: 174 QRS: -9 QRSD: 92 T: 72 QT: 383 QTc: 442 Interpretive Statements SINUS RHYTHM POSSIBLE ANTERIOR MYOCARDIAL INFARCTION , OF INDETERMINATE AGE [30 ms Q WAVE IN V3/V4, OR R < 0.2 mV IN V4] Compared to ECG 03/30/2020 15:30:17 No significant changes Electronically Signed On 04-01-2020 13:53:17 BRICKMASON SUPERVISOR by Tory Lopez M.D. [id number]
[2020-03-30 19:45] LABS: D Dimer 0.41 ug/mIFEU (0-0.59)
--- NOTE | 2020-03-30 20:48 | PC.NURSE ---
Patient port would not flush. Port de accessed. MD aware of medication not given.
[2020-03-30] MEDS: HYDROcodone-acetaminophen 5-325 mg Tablet 1 TAB PO (20:51)
[2020-03-30 20:56] VITALS: BP 109/79; PULSE 82; RESP 18; TEMP 36.6; O2SAT 97
== END 2020-03-30 20:56 | disposition home or self-care (01) ==
PROVIDERS: Emergency Medicine; Emergency Provider Emergency Medicine; PCP Internal Medicine
DX: R07.9 Chest pain, unspecified (principal); Z79.82 Long term (current) use of aspirin; Z79.02 Long term (current) use of antithrombotics/antiplatelets; Z79.84 Long term (current) use of oral hypoglycemic drugs; I25.118 Atherosclerotic heart disease of native coronary artery with other forms of angina pectoris; I11.0 Hypertensive heart disease with heart failure; I50.22 Chronic systolic (congestive) heart failure; I25.2 Old myocardial infarction; E78.5 Hyperlipidemia, unspecified
CPT/HCPCS: 12345; 36591; 71045; 80053; 84484; 85025; 85378; 93005; 96374; 99283; J2550

== ENCOUNTER 2020-04-08 13:29 | Inpatient (IN) | payer MEDICARE, MEDICAID, SELFPAY ==
[2020-04-08] VITALS (12 sets, daily range): BP systolic 98–126; BP diastolic 45–73; PULSE 79–85; RESP 13–20; TEMP 36.4–37.1; O2SAT 94–97; BMI 36.9
--- NOTE | 2020-04-08 13:30 | ECG_ITS ---
[facility] Test Date: 2020-04-08 Pat Name: Rei Queen Department: Room: Gender: Male Resource Management Specialist: : 1970 Requested By: Windy Hart Order Number: [id number] Pena MD: Tory Lopez M.D. Measurements Intervals [place] Rate: 85 P: 4 MA: 214 QRS: 9 QRSD: 87 T: 102 QT: 331 QTc: 394 Interpretive Statements SINUS RHYTHM WITH FIRST DEGREE AV BLOCK POSSIBLE ANTERIOR MYOCARDIAL INFARCTION , OF INDETERMINATE AGE [30 ms Q WAVE IN V3/V4, OR R < 0.2 mV IN V4] Compared to ECG 03/30/2020 18:55:06 First degree AV block now present Myocardial infarct finding still present Electronically Signed On 04-08-2020 19:57:53 MEMBERSHIP SALES ADVISOR by Tory Lopez M.D. [id number]
--- NOTE | 2020-04-08 13:30 | XR_ITS ---
WS: [id number] PORTABLE CHEST HISTORY: chest pain COMPARISON: 03/30/2020 LEFT subclavian Port-A-Cath with tip in the mid SVC is unchanged. Prior median sternotomy wires are s table. Calcified nodule LEFT upper lobe is stable. No pneumonia. No pulmonary vasculature is increased. No p leural effusion or pneumothorax. Cardiac size: Normal. Mediastinum/Aorta: Normal mediastinum. No osseous abnormality seen. XR/XR chest 1V portable [id number] IMPRESSION: Stable chest. No acute cardiopulmonary disease.
[2020-04-08 14:25] LABS: Basophils # 0.1 10^3/uL (0.0-0.1); Basophils % 0.8 %; Eosinophils # 0.1 10^3/uL (0.0-0.8); Eosinophils % 1.4 %; Hematocrit 33.2 % (42.0-52.0); Hemoglobin 10.9 g/dL (11.7-16.6); Lymphocytes # 1.6 10^3/uL (0.8-4.8); Lymphocytes % 17.8 %; Mean Corpuscular HGB Conc 32.8 g/dL (30.0-36.0); Mean Corpuscular Hemoglobin 29.5 pg (28.0-34.0); Mean Platelet Volume 9.2 fL (7.4-10.4); Monocytes # 0.7 10^3/uL (0.2-0.9); Monocytes % 7.3 %; Neutrophils % 72.1 %; Nucleated Red Blood Cells % 0 %; Platelet Count 308 10^3/cmm (130-400); Red Blood Count 3.69 10^6/uL (4.1-5.3); Red Cell Distribution Width 14.7 % (12.1-15.1)
[2020-04-08 14:55] LABS: Troponin(5th) Baseline 39 ng/L (0-15)
[2020-04-08 15:00] LABS: Alanine Aminotransferase 22 U/L (0-41); Albumin Level 3.9 g/dL (3.5-5.2); Alkaline Phosphatase 154 IU/L (40-130); Anion Gap 15.1 (5-19); Aspartate Amino Transferase 15 U/L (0-40); Blood Urea Nitrogen 54 mg/dL (6-20); Calcium 8.4 mg/dL (8.5-10.5); Carbon Dioxide 22 mmol/L (22-29); Chloride 98 mmol/L (98-107); Creatinine Clr Calc Pharmacy 46.9894; Globulin 1.9 g/dL (1.3-4.6); Glomerular Filtration Rate 33.5 mL/min (90-130); Glucose 298 mg/dL (65-115); Lipase 40 U/L (13-60); NT Pro B Type Natriuretic Pept 333 pg/mL (0-125); Osmolality Calculated 294 mOsm/kg (285-295); Potassium 6.1 mmol/L (3.5-5.1); Sodium 129 mmol/L (136-145); Total Bilirubin 0.4 mg/dL (0.15-1.2); Total Protein 5.8 g/dL (6.6-8.7)
--- NOTE | 2020-04-08 15:07 | ED_ITS ---
HPI - Chest Pain General: Chief Complaint: Chest Pain Stated Complaint: CHEST PAIN Time Seen by Provider: 04/08/20 13:30 History of Present Illness: HPI narrative: This patient is a 49-year-old male presenting with chest pain. He has a history of chest pain, stents - he has had CHF and pericardial tamponade in the past. His chest pain started hour and a half ago while he was walking around. He rested and the pain only got worse. He took 2 nitro and per his passed out. He was sitting in a chair at the time so did not have any injuries. He saw Dr. Romero has nurse practitioner earlier this week. He was also in the ER about a week ago. His symptoms at that time were similar. He has been told that he has small vessel disease around his heart. MD complaint: chest pain Pertinent past history: coronary artery disease Onset (ago): hour(s) (1.5) Timing of current episode: episodic Prior episodes: Yes Onset: during exertion (Light exertion) Pain location: left chest Pain radiation: left arm Quality: aching and heaviness Associated symptoms: Reports dyspnea and nausea; Deny abdominal pain, fever(s) or vomiting Review of Systems General: Reports: 10 or more systems reviewed and unremarkable except in HPI and below Const: Denies: fever(s), chills, fatigue or malaise Eyes: Denies: change in vision ENMT: Denies: odynophagia Card: Reports: chest pain; Denies: swelling of feet/ankles Resp: Reports: dyspnea; Denies: productive cough or non-productive cough GI: Reports: nausea; Denies: abdominal pain or vomiting : Denies: flank pain Musc: Denies: neck pain or back pain Skin/Breast: Denies: rash Neuro: Denies: headache(s), numbness in extremities or weakness in extremities Dewey/Lymph: Denies: easy bruising or easy bleeding PFSH ED PFSH: Medical History Anemia Atherosclerotic heart disease of [place] coronary artery with other forms of angina pectoris -hx of CAD with prior stenting of proximal LAD, LCx, RCA Benign essential hypertension with target blood pressure below 140/90 CAD (coronary artery disease) Cardiomyopathy CHF (congestive heart failure) Chronic anticoagulation Chronic kidney disease -baseline Cr appears to be around 1.5 Chronic renal insufficiency Chronic systolic heart failure EF=47%, diffuse LV hypokinesis, mildly increased LA size CKD (chronic kidney disease) Compartment syndrome Depression Diabetes A1c-7.6 (08/2019) Foot drop, left H/O acute myocardial infarction H/O deep venous thrombosis Hyperlipidemia Hypertension Hypothyroidism Ischemic cardiomyopathy Obesity (BMI 30-39.9) Osteoarthritis of spine Port-A-Cath in place Renal failure (ARF), acute on chronic -baseline Cr appears to be around 1.5 Subcutaneous mass of back Lipoma Systolic CHF -no evidence of acute exacerbation currently -resume diuretics -Echo: EF=50%, G1DD, trace MR, trace TR, trace AR, mild ME -BNP-337 Unstable angina pectoris Surgical History H/O colonoscopy 08/2015 H/O esophagogastroduodenoscopy 08/2015 H/O removal of testicle left H/O skin graft H/O vasectomy History of appendectomy History of coronary artery stent placement 5x History of excision of mass 06/08/2019: Subcutaneous mass on back History of inguinal hernia repair, bilateral 2000 History of removal of Port-a-Cath Hx of cholecystectomy Family History Grandfather Cancer skin cancer Parkinson disease Brother Hypertension Father Heart disease Mother Hypertension Stroke Aneurysm Grandmother Aneurysm Other Crohn disease Denies family history of Anesthesia complication Bleeding disorder Social History Smoking and tobacco status: never smoked Alcohol intake: former Former alcohol use details: Only holidays Lives independently: Yes Household members: significant other Marital status: Single Current occupational status: disabled History of recent travel: No Physical Exam Const: COMMON NORMALS: no acute distress, patient oriented x3, no limitations and alert GENERAL APPEARANCE: cooperative and comfortable HENMT: HEAD & SCALP: normal to inspection FACE & SINUS: normal facial exam Eye: GENERAL EYE: appearance normal, both eyes and all related structures Neck/C-Spine: COMMON NORMALS: supple, no meningeal signs and no JVD Chest: COMMONS NORMALS: normal inspection of the chest Resp: COMMON NORMALS: normal respiratory effort, No use of accessory muscles and clear to auscultation bilaterally AUSCULTATION: clear to auscultation bilaterally Cardio: COMMON NORMALS: no JVD, regular rate, regular rhythm and No murmurs present (Cardio) RATE: regular rate RHYTHM: regular rhythm GI: COMMON NORMALS: Normal to inspection, nondistended, normoactive bowel sounds present, Soft to palpation and non-tender INSPECTION: Yes normal to inspection AUSCULTATION: Yes normoactive bowel sounds PALPATION: Yes Soft to palpation Back/Pelvis: COMMON NORMALS: thoracic and lumbar spine normal to inspection Extremity: COMMON NORMALS: normal to inspection NARRATIVE EXTREMITY EXAM: Lower extremity scars consistent with fasciotomy Neuro: COMMON NORMALS: patient oriented x3, moves all extremities, no focal motor deficits and no sensory deficits noted SENSORIUM/ORIENTATION: Yes alert MENINGEAL SIGNS: Yes no meningeal signs Psych: COMMON NORMALS: mental status grossly normal, cooperative and normal affect Skin: COMMON NORMALS: no rashes or lesions noted and turgor normal GENERAL SKIN EXAM: no rashes or lesions noted and turgor normal Course ED course: Patient's work-up was benign except for his renal function and potassium. He says that Dr. Benavides told him the next time he had chest pain like this that he needed to come in the hospital and be cathed so we will admit him to the hospital. EKG, troponin, other labs are unremarkable. I did give him a dose of insulin along with his already high blood sugar for his potassium. Vital Signs: Vital signs: Vital Signs Temperature 98.7 F 04/08/20 13:31 Pulse Rate 82 04/08/20 21:10 Respiratory Rate 17 04/08/20 20:34 Blood Pressure 113/64 04/08/20 21:10 Pulse Oximetry 95 04/08/20 21:10 MDM - Chest Pain Lab Data: Labs: Lab Results 04/08/20 04/08/20 04/08/20 Range/Units 14:10 14:10 14:10 WBC 9.0 (4.0-10.0) 10^3/ uL RBC 3.69 L (4.1-5.3) 10^6/u L Hgb 10.9 L (11.7-16.6) g/dL Hct 33.2 L (42.0-52.0) % MCV 90.0 (80-94) fL MCH 29.5 (28.0-34.0) pg MCHC 32.8 (30.0-36.0) g/dL RDW 14.7 (12.1-15.1) % Plt Count 308 (130-400) 10^3/c mm MPV 9.2 (7.4-10.4) fL Neut % (Auto) 72.1 % Lymph % (Auto) 17.8 % [place] % (Auto) 7.3 % Eos % (Auto) 1.4 % Baso % (Auto) 0.8 % Neut # (Auto) 6.50 (1.8-7.7) 10^3/u L Lymph # (Auto) 1.6 (0.8-4.8) 10^3/u L [place] # (Auto) 0.7 (0.2-0.9) 10^3/u L Eos # (Auto) 0.1 (0.0-0.8) 10^3/u L Baso # (Auto) 0.1 (0.0-0.1) 10^3/u L Nucleated RBC % (a uto) 0 % Nucleated RBCs # 0.0 /100WBC PT 12.40 (12.1-14.9) SECO NDS INR 0.90 (0.8-1.2) D-Dimer (0-0.59) ug/mIFE U Sodium 129 L (136-145) mmol/L Potassium 6.1 H (3.5-5.1) mmol/L Chloride 98 (98-107) mmol/L Carbon Dioxide 22 (22-29) mmol/L Anion Gap 15.1 (5-19) BUN 54 H (6-20) mg/dL Creatinine 2.1 H (0.7-1.2) mg/dL GFR Calculation 33.5 L (90-130) mL/min Glucose 298 H (65-115) mg/dL Calculated Osmolal ity 294 (285-295) mOsm/k g Calcium 8.4 L (8.5-10.5) mg/dL Total Bilirubin 0.4 (0.15-1.2) mg/dL AST 15 (0-40) U/L ALT 22 (0-41) U/L Alkaline Phosphata se 154 H (40-130) IU/L Troponin T Baselin e (0-15) ng/L Troponin T 120 Min [place] (0-15) ng/L Delta Troponin T (0-10) ABS# NT-Pro-B Natriuret Pep 333 H (0-125) pg/mL Total Protein 5.8 L (6.6-8.7) g/dL Albumin 3.9 (3.5-5.2) g/dL Globulin 1.9 (1.3-4.6) g/dL Lipase 40 (13-60) U/L 04/08/20 04/08/20 04/08/20 Range/Units 14:10 14:10 16:30 WBC (4.0-10.0) 10^3/ uL RBC (4.1-5.3) 10^6/u L Hgb (11.7-16.6) g/dL Hct (42.0-52.0) % MCV (80-94) fL MCH (28.0-34.0) pg MCHC (30.0-36.0) g/dL RDW (12.1-15.1) % Plt Count (130-400) 10^3/c mm MPV (7.4-10.4) fL Neut % (Auto) % Lymph % (Auto) % [place] % (Auto) % Eos % (Auto) % Baso % (Auto) % Neut # (Auto) (1.8-7.7) 10^3/u L Lymph # (Auto) (0.8-4.8) 10^3/u L [place] # (Auto) (0.2-0.9) 10^3/u L Eos # (Auto) (0.0-0.8) 10^3/u L Baso # (Auto) (0.0-0.1) 10^3/u L Nucleated RBC % (a uto) % Nucleated RBCs # /100WBC PT (12.1-14.9) SECO NDS INR (0.8-1.2) D-Dimer 0.55 (0-0.59) ug/mIFE U Sodium (136-145) mmol/L Potassium (3.5-5.1) mmol/L Chloride (98-107) mmol/L Carbon Dioxide (22-29) mmol/L Anion Gap (5-19) BUN (6-20) mg/dL Creatinine (0.7-1.2) mg/dL GFR Calculation (90-130) mL/min Glucose (65-115) mg/dL Calculated Osmolal ity (285-295) mOsm/k g Calcium (8.5-10.5) mg/dL Total Bilirubin (0.15-1.2) mg/dL AST (0-40) U/L ALT (0-41) U/L Alkaline Phosphata se (40-130) IU/L Troponin T Baselin e 39 H (0-15) ng/L Troponin T 120 Min [place] 36.83 H (0-15) ng/L Delta Troponin T -2.17 L (0-10) ABS# NT-Pro-B Natriuret Pep (0-125) pg/mL Total Protein (6.6-8.7) g/dL Albumin (3.5-5.2) g/dL Globulin (1.3-4.6) g/dL Lipase (13-60) U/L Discharge Plan Discharge Patient Disposition: Admitted As Inpatient Admit Provider: Rosi Etienne Condition: Stable Coding Level of Care Code ED Automotive Paint Technician for Chg Fwd Exam Comprehensive
[2020-04-08] MEDS: morphine 4 mg/mL SDV 1 mL IVP ×2 (15:11→18:42)
--- NOTE | 2020-04-08 15:30 | ECG_ITS ---
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 Measurements Intervals [place] Rate: 79 P: 5 WA: 210 QRS: -11 QRSD: 96 T: 108 QT: 351 QTc: 403 Interpretive Statements SINUS RHYTHM WITH FIRST DEGREE AV BLOCK POSSIBLE ANTERIOR MYOCARDIAL INFARCTION , PROBABLY OLD [30 ms Q WAVE IN V3/V4, OR R < 0.2 mV IN V4] MODERATE T-WAVE ABNORMALITY, CONSIDER LATERAL ISCHEMIA [-0.1+ mV T WAVE IN I/aVL/V5/V6] Compared to ECG 04/08/2020 13:35:36 T-wave abnormality now present Possible ischemia now present Myocardial infarct finding still present Electronically Signed On 04-08-2020 20:05:42 PROP AND SCENERY MAKER by Tory Lopez M.D. [id number]
[2020-04-08 17:04] LABS: Troponin 5 2HR 36.83 ng/L (0-15)
[2020-04-08 17:08] LABS: Troponin 5 2HR Delta -2.17 ABS# (0-10)
[2020-04-08] MEDS: promethazine 25 mg/mL SDV 1 mL IM (17:23)
--- NOTE | 2020-04-08 19:09 | PC.NURSE ---
EKG done at 1905 and shown to ER doctor
--- NOTE | 2020-04-08 19:30 | ECG_ITS ---
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 Measurements Intervals [place] Rate: 80 P: 0 MA: 194 QRS: -17 QRSD: 106 T: 106 QT: 360 QTc: 416 Interpretive Statements SINUS RHYTHM POSSIBLE ANTERIOR MYOCARDIAL INFARCTION , PROBABLY OLD [30 ms Q WAVE IN V3/V4, OR R < 0.2 mV IN V4] MODERATE T-WAVE ABNORMALITY, CONSIDER LATERAL ISCHEMIA [-0.1+ mV T WAVE IN I/aVL/V5/V6] Compared to ECG 04/08/2020 16:22:35 First degree AV block no longer present Myocardial infarct finding still present T-wave abnormality still present Possible ischemia still present Electronically Signed On 04-08-2020 20:04:06 DIRECT SUPPORT WORKER by Tory Lopez M.D. [id number]
--- NOTE | 2020-04-08 19:38 | PM.HP ---
Providers/Chief Complaint Primary Care Provider: Kp Montanez DO Chief Complaint: CHEST PAIN History of Present Illness Rei Queen II is a 49 year old male who has history of established coronary disease multiple stents, chronic kidney disease stage III-IV, came in with chief complaint of chest pain. Patient is stating that this morning he was feeling fine until he went out with his to a furniture store, he also ate from [employer], when they went to the furniture store he started experiencing extreme weakness, he had no energy at all, when he went home he started experiencing chest discomfort around 11 AM which stayed until he took nitroglycerin, he is describing this chest pain same as last time when he had stents placed, he is describing that pressure-like sensation, someone sitting on his chest, he also experienced diaphoresis and nausea. Chest pain subsided after taking nitroglycerin, her was calling [employer] when his eyes rolled backwards and at that time she hung up, gave him another nitroglycerin because he was complaining of chest pain, called 911 and came to the hospital, Diagnostics in the ER revealed hypotension, he was chest pain-free, hyperkalemia, acute on chronic kidney disease, I requested D-dimer, he was given insulin for hyperkalemia, blood sugar 300s, no EKG changes seen on the EKG for hyperkalemia, I have ordered fluid bolus for hypotension, remove Nitropaste from his right side of the chest, he uses Nitropaste 12 hours a day and remove at night. Review of Systems Const: Reports: body aches, fatigue and malaise; Denies: fever(s) or change in appetite Eyes: Denies: change in vision ENMT: Denies: throat pain Card: Reports: chest pain, dyspnea on exertion and orthopnea; Denies: swelling of feet/ankles Resp: Reports: dyspnea GI: Reports: nausea; Denies: abdominal pain : Denies: flank pain Musc: Denies: neck pain Skin/Breast: Denies: rash Neuro: Denies: headache(s) Psych: Reports: anxiety and depression Endo: Denies: polyuria Dewey/Lymph: Denies: easy bruising All/Imm: Denies: urticaria Medications/Allergies Home Medications Medication Instructions Recorded Confirmed Last Taken Type aspirin 81 mg tablet,delayed 81 mg PO DAILY 06/01/19 04/08/20 04/08/20 History release dulaglutide 0.75 mg/0.5 mL 0.75 mg SUBCUT Q7D 06/01/19 04/08/20 04/03/20 History subcutaneous pen injector furosemide 40 mg tablet 40 mg PO QAM 06/01/19 04/08/20 04/08/20 History levothyroxine 88 mcg capsule 88 mcg PO DAILY 06/01/19 04/08/20 04/08/20 History metformin 500 mg tablet 500 mg PO BID 06/01/19 04/08/20 04/08/20 History methocarbamol 750 mg tablet 750 mg PO TID PRN 06/01/19 04/08/20 03/30/20 History metoprolol tartrate 50 mg tablet 50 mg PO BID 06/01/19 04/08/20 04/08/20 History multivitamin 1 tab PO QAM 06/01/19 04/08/20 04/08/20 History diabetic shoes #1 ea 06/09/19 04/08/20 07/06/19 Rx clopidogrel 75 mg tablet 75 mg PO DAILY #90 tab 08/14/19 04/08/20 04/08/20 Rx atorvastatin 40 mg tablet 40 mg PO DAILY #30 tab 10/07/19 04/08/20 04/07/20 Rx cyclobenzaprine 10 mg PO TID PRN 01/07/20 04/08/20 03/30/20 History isosorbide mononitrate 30 mg 30 mg PO BID tab 01/14/20 04/08/20 04/08/20 History tablet,extended release 24 hr CAM WALKER #1 ea 01/28/20 04/08/20 Unknown Rx [place] #1 ea 01/28/20 04/08/20 Unknown Rx promethazine 25 mg PO TID PRN #20 tab 03/15/20 04/08/20 03/18/20 Rx nitroglycerin 1 patch TRANSDERMA DAILY #30 each 03/21/20 04/08/20 04/08/20 Rx omeprazole 20 mg PO DAILY 28 Days #30 cap 03/21/20 04/08/20 04/08/20 Rx lisinopril 10 mg PO DAILY 03/30/20 04/08/20 04/08/20 History nitroglycerin 0.4 mg sublingual 0.4 mg SUBLINGUAL Q5M PRN #30 tab 04/01/20 04/08/20 04/08/20 Rx tablet 2 tabs amlodipine 10 mg PO DAILY 04/08/20 04/08/20 04/08/20 History citalopram 20 mg PO DAILY 04/08/20 04/08/20 04/07/20 History insulin lispro [Humalog Pen] See Rx Instructions .ROUTE .COMPLEX 04/08/20 04/08/20 Unknown History Allergies Allergy/AdvReac Type Severity Reaction Status Date / Time Sulfa (Sulfonamide Allergy Severe ALGY-Difficulty Verified 04/08/20 13:39 Antibiotics) Breathing codeine Allergy ALGY-Anaphy Verified 04/08/20 13:39 laxis haloperidol [From Haldol] Allergy ADR-Irritab Verified 04/08/20 13:39 le Iodinated Contrast Media Allergy ALGY-Difficulty Verified 04/08/20 13:39 Breathing iodine Allergy ALGY-Difficulty Verified 04/08/20 13:39 Breathing ketorolac Allergy ADR-Nausea Verified 04/08/20 13:39 metoclopramide [From Reglan] Allergy ALGY-Difficulty Verified 04/08/20 13:39 Breathing nalbuphine [From Nubain] Allergy ADR-Diarrhe Verified 04/08/20 13:39 a naproxen [From Naprosyn] Allergy ADR-Vomitin Verified 04/08/20 13:39 g ondansetron [From Zofran] Allergy ADR-Abdominal Verified 04/08/20 13:39 Pain prochlorperazine Allergy ADR-Irritab Verified 04/08/20 13:39 [From Compazine] le ranolazine [From Ranexa] Allergy ALGY-Difficulty Verified 04/08/20 13:39 Breathing PFSH Acute PFSH: Medical History Anemia Atherosclerotic heart disease of [place] coronary artery with other forms of angina pectoris -hx of CAD with prior stenting of proximal LAD, LCx, RCA Benign essential hypertension with target blood pressure below 140/90 CAD (coronary artery disease) Cardiomyopathy CHF (congestive heart failure) Chronic anticoagulation Chronic kidney disease -baseline Cr appears to be around 1.5 Chronic renal insufficiency Chronic systolic heart failure EF=47%, diffuse LV hypokinesis, mildly increased LA size CKD (chronic kidney disease) Compartment syndrome Depression Diabetes A1c-7.6 (08/2019) Foot drop, left H/O acute myocardial infarction H/O deep venous thrombosis Hyperlipidemia Hypertension Hypothyroidism Ischemic cardiomyopathy Obesity (BMI 30-39.9) Osteoarthritis of spine Port-A-Cath in place Renal failure (ARF), acute on chronic -baseline Cr appears to be around 1.5 Subcutaneous mass of back Lipoma Systolic CHF -no evidence of acute exacerbation currently -resume diuretics -Echo: EF=50%, G1DD, trace MR, trace TR, trace AR, mild [place] -BNP-337 Unstable angina pectoris Surgical History H/O colonoscopy 08/2015 H/O esophagogastroduodenoscopy 08/2015 H/O removal of testicle left H/O skin graft H/O vasectomy History of appendectomy History of coronary artery stent placement 5x History of excision of mass 06/08/2019: Subcutaneous mass on back History of inguinal hernia repair, bilateral 2000 History of removal of Port-a-Cath Hx of cholecystectomy Family History Grandfather Cancer skin cancer Parkinson disease Brother Hypertension Father Heart disease Mother Hypertension Stroke Aneurysm Grandmother Aneurysm Other Crohn disease Denies family history of Anesthesia complication Bleeding disorder Social History Smoking and tobacco status: never smoked Alcohol intake: former Former alcohol use details: Only holidays Lives independently: Yes Household members: significant other Marital status: Single Current occupational status: disabled History of recent travel: No Vitals/I&O/Wt Last Vital Signs Temp 98.7 F 04/08/20 13:31 Pulse 80 04/08/20 19:29 Resp 13 04/08/20 19:29 BP 112/64 04/08/20 19:29 Pulse Ox 94 04/08/20 19:29 Weight last 48 hrs Weight 103.873 kg Physical Exam Narrative: EXAM NARRATIVE: Middle-age male Currently sitting comfortably in his bed, no active distress Saturating well on room air No active chest pain or acute respiratory distress Bilateral breath sounds without any adventitious rhonchi or crackles Clinically looks euvolemic Abdomen soft bowel sounds present, nontender EOMI, PERRLA No neurological signs or focal signs No extremity no edema gangrene or ulcer Appropriate mood and affect Data : 04/08/20 14:10 04/08/20 14:10 A&P Assessment and plan (1) Angina at rest: Status: Acute (2) JESUS (acute kidney injury): Status: Acute (3) Hyperkalemia: Status: Acute (4) Hyperglycemia: Status: Acute Additional A&P Information Recurrent unstable angina established coronary disease Troponins not significantly high, negative delta troponin, EKG without ischemic or infarctive changes, Currently chest pain-free I have removed Nitropaste from right side of his chest Observe overnight for recurrent angina He follows up with Dr. Benavides, considering chest pain-free at the time my evaluation I would only opt for increasing antianginal medications for now, if he starts having recurrent pain would activate cardiology, would hold off on ACS for now Check D-dimer level Acute on chronic kidney disease Hold lisinopril, patient is denying nausea, diarrhea, UTI symptoms He is following up with Dr. Weiss Baseline creatinine seems to be around 1.6-1.9 Does not look fluid overloaded No sign of urine obstruction Suboptimally controlled hyperglycemia which I think is contributing towards progression of chronic kidney disease Hyperkalemia No EKG changes noted We will give Kayexalate, insulin Check potassium in the morning Type 2 diabetes Consistent carb cardiac diet along with sliding scale Hold Metformin Full code Cardiac consistent carb diet DVT prophylaxis Heparin Attestations Medical Necessity Statement*: Anticipating discharge in less than 48 hours need management for recurrent unstable angina and JESUS Time Spent in Patient Care: (>than 50% of time spent in counselling and/or direct pt care on unit). 45mins Coding Level of Care Code Acute Pipe Manufacture Supervisor for Chg Fwd Diagnoses Angina at rest I20.8 JESUS (acute kidney injury) N17.9 Hyperkalemia E87.5 Hyperglycemia R73.9
[2020-04-08] MEDS: insulin regular-human 100 units/1 mL 10 UNIT IVP (19:55)
[2020-04-08 20:16] LABS: D Dimer 0.55 ug/mIFEU (0-0.59)
[2020-04-08 20:47] LABS: Troponin 5 6HR 34.95 ng/L (0-15)
[2020-04-08 20:49] LABS: Troponin 5 6HR Delta -4.05 ng/L (0-12)
--- NOTE | 2020-04-08 20:58 | PC.NURSE ---
Patient blood glucose is 71
[2020-04-08 21:00] LABS: Glucose Point of Care 71 mg/dL (70-110)
--- NOTE | 2020-04-08 21:05 | PC.NURSE ---
Gave patient two cranberry juices, a turkey sandwich, and a water to assist with the patient's blood sugar. Okayed by doctor, patient also stated that his chest was starting to hurt again, doctor has been made aware.
--- NOTE | 2020-04-08 21:07 | PC.NURSE ---
Patient is eating
[2020-04-08] MEDS: sodium polystyrene sulfonate 15 gm/60 mL Btl PO (22:01)
[2020-04-08] MEDS: heparin 5,000 unit/mL INJ 1 mL 5000 UNIT SUBCUT (22:01)
[2020-04-08] MEDS: sodium chloride 0.9% 1,000 ML 999 ML IV (22:12)
[2020-04-08 22:16] LABS: Glucose Point of Care 182 mg/dL (70-110)
[2020-04-09] VITALS (10 sets, daily range): BP systolic 106–130; BP diastolic 58–79; PULSE 75–83; RESP 12–20; TEMP 35.9–36.7; O2SAT 91–97
[2020-04-09 00:40] LABS: Amphetamines Screen Urine Negative (Negative); Barbiturates Screen Urine Negative (Negative); Benzodiazepines Screen Urine Negative (Negative); Cocaine Screen Urine Negative (Negative); Opiate Screen Urine Positive (Negative); PCP Screen Urine Negative (Negative); THC Screen Urine Negative (Negative)
[2020-04-09] MEDS: promethazine 25 mg Tablet 12.5 MG PO ×3 (00:59→21:31)
[2020-04-09] MEDS: morphine IR 15 mg Tablet PO ×3 (02:18→21:32)
[2020-04-09 03:39] LABS: Basophils # 0.1 10^3/uL (0.0-0.1); Basophils % 0.6 %; Eosinophils # 0.1 10^3/uL (0.0-0.8); Eosinophils % 1.7 %; Hemoglobin 10.4 g/dL (11.7-16.6); Lymphocytes # 2.2 10^3/uL (0.8-4.8); Lymphocytes % 27.2 %; Mean Corpuscular HGB Conc 32.5 g/dL (30.0-36.0); Mean Corpuscular Hemoglobin 29.2 pg (28.0-34.0); Mean Corpuscular Volume 89.9 fL (80-94); Mean Platelet Volume 9.3 fL (7.4-10.4); Monocytes # 0.6 10^3/uL (0.2-0.9); Neutrophils # 5.18 10^3/uL (1.8-7.7); Nucleated Red Blood Cells % 0 %; Platelet Count 285 10^3/cmm (130-400); Red Blood Count 3.56 10^6/uL (4.1-5.3); Red Cell Distribution Width 14.9 % (12.1-15.1); White Blood Count 8.2 10^3/uL (4.0-10.0)
[2020-04-09 04:13] LABS: Anion Gap 13.1 (5-19); Blood Urea Nitrogen 53 mg/dL (6-20); Calcium 8.4 mg/dL (8.5-10.5); Carbon Dioxide 23 mmol/L (22-29); Chloride 105 mmol/L (98-107); Creatinine Clr Calc Pharmacy 46.9894; Glomerular Filtration Rate 33.5 mL/min (90-130); Glucose 149 mg/dL (65-115); Osmolality Calculated 297 mOsm/kg (285-295); Potassium 6.1 mmol/L (3.5-5.1); Sodium 135 mmol/L (136-145)
[2020-04-09] MEDS: heparin 5,000 unit/mL INJ 1 mL 5000 UNIT SUBCUT ×3 (05:40→21:30)
[2020-04-09 06:49] LABS: Glucose Point of Care 131 mg/dL (70-110)
--- NOTE | 2020-04-09 07:27 | PC.NURSE ---
Patient has again this am voiced chest pressure rating at 3-4 stable in chest. Patient recieved PRN pain med last night and is unable to have more medciation at this time. Passed to day shift nurse since regular provider has not yet been assigned. Will continue to monitor. Patient is stable with no other s/s of distress at this time. VS WNL
[2020-04-09] MEDS: atorvastatin 40 mg Tablet PO (08:17)
[2020-04-09] MEDS: aspirin 81 mg EC Tablet PO (08:17)
[2020-04-09] MEDS: clopidogrel 75 mg Tablet PO (08:17)
[2020-04-09] MEDS: amlodipine 10 mg Tablet PO (08:17)
[2020-04-09] MEDS: pantoprazole DR 40 mg Tablet PO (08:18)
[2020-04-09] MEDS: citalopram 20 mg Tablet PO (08:18)
[2020-04-09] MEDS: metoprolol tartrate 50 mg Tablet PO ×2 (08:18→17:24)
[2020-04-09] MEDS: isosorbide mononitrate ER 30 mg Tablet PO ×2 (08:19→17:24)
[2020-04-09] MEDS: levothyroxine 88 mcg Tablet PO (09:10)
[2020-04-09 11:29] LABS: Glucose Point of Care 224 mg/dL (70-110)
[2020-04-09 12:09] LABS: SARS Covid-2 Antigen Negative (Negative)
[2020-04-09 16:07] LABS: Glucose Point of Care 210 mg/dL (70-110)
[2020-04-09] MEDS: ranolazine (12HR) 500 mg Tablet PO (17:24)
--- NOTE | 2020-04-09 20:22 | P.PN_ITS ---
Subjective Subjective: Interval history: Chest pain today is better, although still present, describes it as his chronic pain, in the center of the chest, but still about 7/10. This morning he was having nausea. Yesterday he had an episode of diarrhea. Reports continuous headache, which is made worse by nitroglycerin. Having some intermittent cough. Vitals/I&O/Wt Last Vital Signs Temp 97.8 F 04/09/20 19:45 Pulse 77 04/09/20 19:45 Resp 16 04/09/20 19:45 BP 111/78 04/09/20 19:45 Pulse Ox 94 04/09/20 19:45 04/09/20 04/09/20 04/09/20 06:59 14:59 22:59 Intake Total 240 / 240 Output Total 800 / 800 1300 / 1300 700 / 2000 Balance -800 / 300 -1300 / -1300 -460 / -1760 Weight last 48 hrs Weight 103.873 kg Physical Exam Const: COMMON NORMALS: no acute distress, patient oriented x3 and alert NUTRITIONAL APPEARANCE: obese ORIENTATION/CONSCIOUSNESS: Yes awake OTHER: Reclined in bed. HENMT: COMMON NORMALS: oropharynx normal Neck/C-Spine: COMMON NORMALS: no JVD Resp: COMMON NORMALS: normal respiratory effort and clear to auscultation bilaterally AUSCULTATION: clear to auscultation bilaterally Cardio: COMMON NORMALS: no JVD, regular rhythm, S1 normal heart sound present, S2 normal heart sound present and No murmurs present (Cardio) RHYTHM: regular rhythm HEART SOUNDS: S1 normal heart sound present and S2 normal heart sound present GI: COMMON NORMALS: Normal to inspection, nondistended, normoactive bowel sounds present, Soft to palpation and non-tender PALPATION: Yes Soft to palpation Extremity: COMMON NORMALS: no joint enlargement and no pedal edema Neuro: COMMON NORMALS: patient oriented x3 and moves all extremities SENSORIUM/ORIENTATION: Yes alert Skin: COMMON NORMALS: no rashes or lesions noted GENERAL SKIN EXAM: no rashes or lesions noted Data : 04/09/20 03:19 04/09/20 03:19 A&P Assessment and plan (1) Angina at rest: Pain today was somewhat better, but still persistent. He reported nausea, some difficulty with breakfast, but says he forced it down . Discussed his symptoms with his industrial staff nurse. He had a recent coronary angiogram with open arteries and patent stents. Discussed troponin level which appears to be close to his baseline. He is afebrile, and I do not hear any pe ricardial rub, do not note EKG changes to suspect pericarditis. Chest x-ray unremarkable. Per discussion with his industrial staff nurse we may try again ranolazine which he did not tolerate very well in the past, given hypotension, headache from nitrates. In the past reported some difficulty breathing with it, however, given persistent symptoms, lack of effectiveness of other medications, currently after discussion of risks and benefits with him and his he is willing to try it while monitored in the hospital. This is requested. Discussed with him and spouse also regarding nausea, and some dysphagia today. Discussed potentially investigation of additional causes that may also produce similar symptoms. He is agreeable with assessment by barium swallow to exclude esophageal spasm. Continue PPI. We will also assess him by VQ scan, although D-dimer is not suggestive of PE, but he does report history of bilateral PE about a year ago, as well as history of lower extremity DVT leading to compartment syndrome. He states he used to be on anticoagulation and discontinued it earlier this year after completing the course, as well as due to financial considerations. We are also testing him for COVID-19 given suspicious symptoms. COVID-19 rapid antigen was negative. PCR has been sent. Status: Acute (2) JESUS (acute kidney injury): Acute kidney injury on chronic kidney disease. Versus possible progress ion of chronic kidney disease. His creatinine did transiently improve earlier in March. He does have diabetic nephropathy. Apart from lisinopril I do not see medications that would obviously affect his renal function. For now his diuretic is on hold. Will reassess renal function. Continue follow-up with Dr. Weiss. Status: Acute (3) Hyperkalemia: Potassium still 6.1 this morning. Received Kayexalate. Recheck potassium. Low potassium diet. Hold lisinopril. Status: Acute (4) Hyperglycemia: Continue insulin in the hospital. Status: Acute Additional A&P Information His was concerned about some difficulties with draws from the port. Requested that draw be attempted, and if unsuccessful may need Cathflo which is ordered for this purpose and discussed with his nurse. There have been no issues with pushes through the port and it appears to be patent in at least one direction. Full code Cardiac consistent carb diet DVT prophylaxis Heparin Attestations Medical Necessity Statement*: Continue hospitalization for monitoring and assessment of persistent chest pain in a gentleman with known coronary disease, multiple stents, previously with multiple angiograms, multiple comorbidities including prior PE, DVT, assessment for additional causes. Coding Level of Care Code Acute Industrial Gas Production Operator for Radhag Maria Victoria Diagnoses Angina at rest I20.8 JESUS (acute kidney injury) N17.9 Hyperkalemia E87.5 Hyperglycemia R73.9
[2020-04-09] MEDS: trazodone 50 mg Tablet 25 MG PO (21:31)
--- NOTE | 2020-04-09 22:20 | PC.NURSE ---
PT IS UP ON SIDE OF BED. PT C/O 10 PAIN. PRN MORPHINE PO WAS GIVEN. PT WANTED A DIET SODA. PT WAS GIVEN A DIET [place] [facility] [place] [facility]. PT HAS NO OTHER WANTS AT THIS TIME. WILL CONTINUE TO MONITOR.
[2020-04-10] VITALS (14 sets, daily range): BP systolic 106–126; BP diastolic 67–74; PULSE 72–84; RESP 13–20; TEMP 36.3–36.6; O2SAT 90–94
[2020-04-10 04:10] LABS: Basophils # 0.1 10^3/uL (0.0-0.1); Basophils % 0.8 %; Eosinophils # 0.3 10^3/uL (0.0-0.8); Hematocrit 32.1 % (42.0-52.0); Hemoglobin 10.2 g/dL (11.7-16.6); Lymphocytes # 2.5 10^3/uL (0.8-4.8); Lymphocytes % 26.6 %; Mean Corpuscular HGB Conc 31.8 g/dL (30.0-36.0); Mean Corpuscular Hemoglobin 28.8 pg (28.0-34.0); Mean Corpuscular Volume 90.7 fL (80-94); Mean Platelet Volume 9.3 fL (7.4-10.4); Monocytes # 0.7 10^3/uL (0.2-0.9); Monocytes % 7.9 %; Neutrophils # 5.73 10^3/uL (1.8-7.7); Neutrophils % 61.4 %; Nucleated Red Blood Cells % 0 %; Platelet Count 290 10^3/cmm (130-400); Red Blood Count 3.54 10^6/uL (4.1-5.3); Red Cell Distribution Width 15.3 % (12.1-15.1); White Blood Count 9.3 10^3/uL (4.0-10.0)
[2020-04-10 04:36] LABS: Alanine Aminotransferase 17 U/L (0-41); Albumin Level 3.6 g/dL (3.5-5.2); Alkaline Phosphatase 128 IU/L (40-130); Anion Gap 13.6 (5-19); Aspartate Amino Transferase 13 U/L (0-40); Blood Urea Nitrogen 48 mg/dL (6-20); Calcium 8.5 mg/dL (8.5-10.5); Carbon Dioxide 24 mmol/L (22-29); Chloride 103 mmol/L (98-107); Globulin 2.2 g/dL (1.3-4.6); Glomerular Filtration Rate 33.5 mL/min (90-130); Glucose 146 mg/dL (65-115); Osmolality Calculated 297 mOsm/kg (285-295); Potassium 4.6 mmol/L (3.5-5.1); Sodium 136 mmol/L (136-145); Total Bilirubin 0.4 mg/dL (0.15-1.2); Total Protein 5.8 g/dL (6.6-8.7)
[2020-04-10 04:40] LABS: Creatinine Clr Calc Pharmacy 46.9894
[2020-04-10] MEDS: heparin 5,000 unit/mL INJ 1 mL 5000 UNIT SUBCUT ×3 (05:33→20:04)
[2020-04-10] MEDS: morphine IR 15 mg Tablet PO ×2 (05:36→20:03)
[2020-04-10 06:44] LABS: Glucose Point of Care 163 mg/dL (70-110)
--- NOTE | 2020-04-10 06:45 | PC.NURSE ---
PT IS RESTING IN BED. PT C/O 4/10 SHOULDER AND ARM PAIN. PRN MORPHINE PO WAS GIVEN. WILL CONTINUE TO MONITOR.
[2020-04-10] MEDS: ranolazine (12HR) 500 mg Tablet PO ×2 (08:36→17:44)
[2020-04-10] MEDS: clopidogrel 75 mg Tablet PO (08:36)
[2020-04-10] MEDS: aspirin 81 mg EC Tablet PO (08:36)
[2020-04-10] MEDS: metoprolol tartrate 50 mg Tablet PO ×2 (08:36→17:44)
[2020-04-10] MEDS: isosorbide mononitrate ER 30 mg Tablet PO ×2 (08:36→17:44)
[2020-04-10] MEDS: amlodipine 10 mg Tablet PO (08:36)
[2020-04-10] MEDS: pantoprazole DR 40 mg Tablet PO ×2 (08:36→20:04)
[2020-04-10] MEDS: atorvastatin 40 mg Tablet PO (08:36)
[2020-04-10] MEDS: citalopram 20 mg Tablet PO (08:36)
[2020-04-10] MEDS: levothyroxine 88 mcg Tablet PO (08:37)
[2020-04-10 11:55] LABS: Glucose Point of Care 198 mg/dL (70-110)
[2020-04-10] MEDS: promethazine 25 mg Tablet 12.5 MG PO ×2 (12:13→23:38)
[2020-04-10 17:04] LABS: Glucose Point of Care 202 mg/dL (70-110)
--- NOTE | 2020-04-10 19:41 | PM.PN ---
Subjective Subjective: Interval history: Chest pain 5/10 left side of the chest, radiating to the left arm and left side jaw. Reports this is similar to his recurrent pain at home which ranges sometimes from as low as 1, and sometimes as high as 9. Minimal cough. No headache. No nausea vomiting or diarrhea. Tolerating oral intake, although states has to eat after nausea medication. Vitals/I&O/Wt Last Vital Signs Temp 97.4 F L 04/10/20 17:15 Pulse 80 04/10/20 17:15 Resp 18 04/10/20 17:15 BP 106/74 04/10/20 17:15 Pulse Ox 94 04/10/20 17:15 04/10/20 04/10/20 04/10/20 06:59 14:59 22:59 Intake Total 480 / 720 600 / 600 Output Total 900 / 900 500 / 1400 Balance 480 / -1280 -300 / -300 -500 / -800 Physical Exam Const: COMMON NORMALS: no acute distress, patient oriented x3 and alert NUTRITIONAL APPEARANCE: obese ORIENTATION/CONSCIOUSNESS: Yes awake OTHER: Reclined in bed. HENMT: COMMON NORMALS: oropharynx normal Neck/C-Spine: COMMON NORMALS: no JVD Resp: COMMON NORMALS: normal respiratory effort and clear to auscultation bilaterally AUSCULTATION: clear to auscultation bilaterally Cardio: COMMON NORMALS: no JVD, regular rhythm, S1 normal heart sound present, S2 normal heart sound present and No murmurs present (Cardio) RHYTHM: regular rhythm HEART SOUNDS: S1 normal heart sound present and S2 normal heart sound present GI: COMMON NORMALS: Normal to inspection, nondistended, normoactive bowel sounds present, Soft to palpation and non-tender PALPATION: Yes Soft to palpation Extremity: COMMON NORMALS: no joint enlargement and no pedal edema LEFT UPPER EXTREMITY: Yes shoulder joint Left shoulder joint: Yes inspection (Normal) OTHER: No pain or active or passive range of motion of the left shoulder. Neuro: COMMON NORMALS: patient oriented x3 and moves all extremities SENSORIUM/ORIENTATION: Yes alert Skin: COMMON NORMALS: no rashes or lesions noted GENERAL SKIN EXAM: no rashes or lesions noted Data : 04/10/20 03:52 04/10/20 03:52 A&P Assessment and plan (1) Angina at rest: Pain today appears somewhat better, 5/10. He reports left side chest, radiating to left arm, left side jaw. Difficult to say if possibly effect of ranolazine. But does appear to be with some improvement. Pending additional assessment by COVID-19 PCR which is in progress, VQ scan, barium swallow evaluation. He does report some dysphagia symptoms, and this in fact may be contributing. We will also increase PPI to twice daily. At this time given his ongoing pain and do not feel safe to release him home. If pain without further improvement with ranolazine, and unexplained by additional assessments, consider cardiac evaluation. He is tolerating ranolazine so far without any issues with breathing. Blood pressures too soft to increase other antianginals. He had a coronary angiogram in November with open arteries and patent stents. Discussed troponin level which appears to be close to his baseline. He does have history of open pericardiotomy. He is afebrile, and I do not hear any pericardial rub, do not note EKG changes to suspect pericarditis. Chest x-ray unremarkable. Reports past history of PE, though D-dimer is normal. We are also testing him for COVID-19 given suspicious symptoms. COVID-19 rapid antigen was negative. PCR has been sent. Status: Acute (2) JESUS (acute kidney injury): Acute kidney injury on chronic kidney disease. Versus possible progression of chronic kidney disease. His creatinine did transiently improve earlier in March. He does have diabetic nephropathy. Apart from lisinopril I do not see medications that would obviously affect his renal function. For now his diuretic is on hold. Will reassess renal function. Continue follow-up with Dr. Weiss. Status: Acute (3) Hyperkalemia: Resolved. Received Kayexalate. Low potassium diet. Hold lisinopril. Status: Acute (4) Hyperglycemia: Continue insulin in the hospital. Status: Acute Additional A&P Information His was concerned about some difficulties with draws from the port. He reports the nurse was able to draw from the port yesterday. Cathflo was ordered as needed if obstructed. Full code Cardiac consistent carb diet DVT prophylaxis Heparin Attestations Medical Necessity Statement*: Continue for assessment of ongoing chest pain with history of multiple cardiac comorbidities including coronary artery disease, stenting and open pericardiotomy, optimization of angina medications, assessment of other possible causes. Coding Level of Care Code Acute Engineering Lecturer for Chg Fwd Diagnoses Angina at rest I20.8 JESUS (acute kidney injury) N17.9 Hyperkalemia E87.5 Hyperglycemia R73.9
--- NOTE | 2020-04-10 19:49 | PC.NURSE ---
Patient reports continued chronic chest pain, rating it 5/10 at this time and nausea. Will give PRN medications when needed and monitor.
[2020-04-10] MEDS: trazodone 50 mg Tablet 25 MG PO (20:03)
[2020-04-10 20:58] LABS: Glucose Point of Care 231 mg/dL (70-110)
[2020-04-11] VITALS (31 sets, daily range): BP systolic 107–131; BP diastolic 64–76; PULSE 71–100; RESP 12–22; TEMP 36.4–36.8; O2SAT 86–99
[2020-04-11] MEDS: morphine IR 15 mg Tablet PO ×3 (04:15→23:29)
[2020-04-11] MEDS: heparin 5,000 unit/mL INJ 1 mL 5000 UNIT SUBCUT ×3 (04:16→21:03)
--- NOTE | 2020-04-11 04:41 | PC.NURSE ---
Addendum entered by Lise Mustafa RN 04/11/20 04:42: Sterile technique used. Original Note: Port line clotted off while attempting to draw morning labs. Port line removed and reaccessed with doctor's permission.
[2020-04-11 04:59] LABS: Basophils # 0.1 10^3/uL (0.0-0.1); Basophils % 0.7 %; Eosinophils # 0.3 10^3/uL (0.0-0.8); Eosinophils % 2.8 %; Hemoglobin 10.9 g/dL (11.7-16.6); Lymphocytes # 2.1 10^3/uL (0.8-4.8); Lymphocytes % 23.4 %; Mean Corpuscular HGB Conc 31.1 g/dL (30.0-36.0); Mean Corpuscular Hemoglobin 29.1 pg (28.0-34.0); Mean Corpuscular Volume 93.6 fL (80-94); Mean Platelet Volume 9.3 fL (7.4-10.4); Monocytes # 0.6 10^3/uL (0.2-0.9); Monocytes % 6.6 %; Neutrophils # 5.91 10^3/uL (1.8-7.7); Neutrophils % 66.3 %; Nucleated Red Blood Cells % 0 %; Platelet Count 260 10^3/cmm (130-400); Red Blood Count 3.74 10^6/uL (4.1-5.3); Red Cell Distribution Width 15.1 % (12.1-15.1); White Blood Count 8.9 10^3/uL (4.0-10.0)
[2020-04-11 05:29] LABS: Alanine Aminotransferase 19 U/L (0-41); Albumin Level 3.6 g/dL (3.5-5.2); Alkaline Phosphatase 138 IU/L (40-130); Aspartate Amino Transferase 16 U/L (0-40); Blood Urea Nitrogen 56 mg/dL (6-20); Calcium 8.7 mg/dL (8.5-10.5); Carbon Dioxide 18 mmol/L (22-29); Chloride 99 mmol/L (98-107); Globulin 2.4 g/dL (1.3-4.6); Glomerular Filtration Rate 27.4 mL/min (90-130); Glucose 177 mg/dL (65-115); Osmolality Calculated 290 mOsm/kg (285-295); Sodium 130 mmol/L (136-145); Total Bilirubin 0.5 mg/dL (0.15-1.2)
[2020-04-11 06:02] LABS: Slide Review Slide Review Perform
[2020-04-11 06:11] LABS: Anion Gap 19.1 (5-19); Potassium 6.1 mmol/L (3.5-5.1)
[2020-04-11 06:39] LABS: Glucose Point of Care 193 mg/dL (70-110)
[2020-04-11] MEDS: clopidogrel 75 mg Tablet PO (08:02)
[2020-04-11] MEDS: metoprolol tartrate 50 mg Tablet PO ×2 (08:02→18:05)
[2020-04-11] MEDS: atorvastatin 40 mg Tablet PO (08:02)
[2020-04-11] MEDS: citalopram 20 mg Tablet PO (08:04)
[2020-04-11] MEDS: aspirin 81 mg EC Tablet PO (08:04)
[2020-04-11] MEDS: ranolazine (12HR) 500 mg Tablet PO ×2 (08:04→18:06)
[2020-04-11] MEDS: pantoprazole DR 40 mg Tablet PO ×2 (08:04→18:06)
[2020-04-11] MEDS: isosorbide mononitrate ER 30 mg Tablet PO ×2 (08:04→18:06)
[2020-04-11] MEDS: amlodipine 10 mg Tablet PO (08:04)
[2020-04-11] MEDS: levothyroxine 88 mcg Tablet PO (08:05)
--- NOTE | 2020-04-11 10:31 | PC.NURSE ---
PATIENT AMBULATED IN ROOM WITH NURSE ASSISTANCE AND SUPERVISION.
[2020-04-11] MEDS: sodium polystyrene sulfonate 15 gm/60 mL Btl 30 GM PO (10:43)
--- NOTE | 2020-04-11 10:56 | DCPLANNER ---
IMM completed over the phone with pt due to covid testing 04/11/2020 @ 2338. Copy of rights given to nurseSelina to give to pt.
[2020-04-11 11:17] LABS: Glucose Point of Care 223 mg/dL (70-110)
[2020-04-11 16:07] LABS: Glucose Point of Care 130 mg/dL (70-110)
--- NOTE | 2020-04-11 16:31 | PM.PN ---
Subjective Subjective: Interval history: No increase episodes of chest pain, thus far tolerating the Ranexa. Current chest pain level varying from 2-5/10. Denied any complaints of headache. Does have some dizziness but does not think it is worse than baseline. Primarily with position changes. Denies acute shortness of breath. Had requested EGD and colonoscopy be done during this hospital stay. We discussed the fact that there is no evidence of gross bleeding right now and we have some room to go up on PPI. With his chronic angina I am not sure that the risk of procedure outweigh the benefits. He expressed understanding. VQ scan and a modified barium swallow had previously been ordered though delayed due to Covid testing. Covid PCR test did come back negative today. Vitals/I&O/Wt Last Vital Signs Temp 98.0 F 04/11/20 14:53 Pulse 79 04/11/20 14:53 Resp 15 04/11/20 14:53 BP 127/64 04/11/20 14:53 Pulse Ox 92 04/11/20 14:53 04/11/20 04/11/20 04/11/20 06:59 14:59 22:59 Intake Total 700 / 1300 360 / 360 Output Total 400 / 1800 825 / 825 Balance 300 / -500 -465 / -465 Physical Exam Const: OTHER: Alert, oriented x3, cooperative, not acutely ill-appearing HENMT: OTHER: Normocephalic atraumatic, moist mucus membranes Eye: OTHER: Pupils equally round Neck/C-Spine: OTHER: Supple Chest: OTHER: Port-A-Cath in place in left upper chest intact Resp: OTHER: Clear to auscultation bilaterally, no rales, rhonchi or wheezes noted, no accessory muscle use noted Cardio: OTHER: Regular rate and rhythm, no murmurs gallops or rubs. Pulses equal throughout GI: OTHER: Abdomen soft, nondistended, positive bowel sounds : OTHER: Deferred Extremity: NARRATIVE EXTREMITY EXAM: No pitting edema, chronic scars to lower extremities unchanged from prior evaluation Neuro: OTHER: Face symmetric, speech clear, moves all extremities, Psych: OTHER: Normal affect Skin: OTHER: Chronic rather than acute changes noted Data : 04/11/20 04:12 04/11/20 04:12 A&P Assessment and plan (1) Angina at rest: Acute on chronic problem. Thus far appears to be tolerating Ranexa. Pain continues to be present but not escalating. Has known history of coronary artery disease with stents and chronic angina, chronic CHF with mildly decreased ejection fraction. Evaluation for other potential sources of chest pain initiated to include VQ scan and modified barium swallow both of which were delayed due to Covid PCR testing. He has reported some dysphagia and has a history of PE in the past. Status: Acute (2) JESUS (acute kidney injury): Progressively worsening BUN and creatinine with elevated potassium again Lasix has been held since admission and lisinopril was also held. He does have recurrent hyperkalemia noted and decreasing CO2 level. Known diabetic nephropathy with chronic kidney disease stage III. Status: Acute (3) Hyperkalemia: Recurrent, feel secondary to acute kidney injury plus or minus MACIEJ inhibitor and lack of diuretic therapy Status: Acute (4) Diabetes: Status: Chronic Qualifiers: Diabetes mellitus type: type 2 Diabetes mellitus chcf insulin use: without chcf use Diabetes mellitus complication status: with kidney complications Diabetes mellitus complication detail: with chronic kidney disease Chronic kidney disease stage: stage 3 (moderate) Chronic kidney disease stage 3 subtype: stage 3b (GFR 30-44) Qualified Code(s): E11.21 - Type 2 diabetes mellitus with diabetic nephropathy; N18.32 - Chronic kidney disease, stage 3b (5) Atherosclerotic heart disease of [place] coronary artery with other forms of angina pectoris: Status: Chronic (6) Anemia: Stable from prior values Status: Chronic Qualifiers: Anemia type: unspecified type Qualified Code(s): D64.9 - Anemia, unspecified Additional A&P Information Functioning Port-A-Cath Modified barium swallow and VQ scan will now be done tomorrow given that we have received negative PCR for Covid Check urinalysis, urine electrolytes and bladder scan May have to consider consultation with nephrology if renal function does not improve Kayexalate Repeat electrolytes this evening well is in the morning Lasix x1 dose 40 mg IV Continue insulin for diabetes, home Metformin is currently held Continue home metoprolol, isosorbide, nitroglycerin patch, aspirin, statin, Plavix, amlodipine Continue home citalopram, Flexeril, levothyroxine, trazodone as needed Continue PPI Looks like he has oral morphine ordered as needed for pain control, continue to decrease dosing, do not plan on ordering this for home Monitor H&H for any drop On DVT prophylaxis with subcutaneous heparin Supportive care otherwise Monitor closely on telemetry for any acute changes Full code Attestations Medical Necessity Statement*: Requires ongoing inpatient stay particularly in light of worsening renal function and recurrent hyperkalemia. This may be related to adjustments to medications. Does not acutely appear to be an obstructive process but will evaluate. He has chronic angina that has been acutely worse. Seems to be stabilizing in terms of angina with addition of Ranexa. Coding Level of Care Code Acute Sales And Marketing Representative for Radhag Maria Victoria Diagnoses Angina at rest I20.8 JESUS (acute kidney injury) N17.9 Hyperkalemia E87.5 Diabetes E11.21; N18.32 Diabetes mellitus type: type 2 Diabetes mellitus long term care pharmacist insulin use: without long term care pharmacist use Diabetes mellitus complication status: with kidney complications Diabetes mellitus complication detail: with chronic kidney disease Chronic kidney disease stage: stage 3 (moderate) Chronic kidney disease stage 3 subtype: stage 3b (GFR 30-44) Atherosclerotic heart disease of [place] coronary 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 Anemia D64.9 Anemia type: unspecified type
[2020-04-11 18:05] LABS: Add Urine Microscopic? NO
[2020-04-11] MEDS: FUROsemide 10 mg/mL SDV 4mL 40 MG IVP (18:06)
--- NOTE | 2020-04-11 18:26 | PC.NURSE ---
BLADDER SCAN BLADDER SCAN REVEALED 497 ML OF URINE. PATIENT VOIDED 475 ML AND URINE SAMPLE OBTAINED. PATIENT ALSO VOIDED 825ML URINE EARLIER THIS SHIFT. DR. ADAN NOTIFIED OF THIS.
[2020-04-11 18:38] LABS: Bilirubin Urine Neg (Negative); Blood Urine Neg (Negative); Glucose Urine UA Norm (Normal); Ketones Urine Negative (Negative); Leukocyte Esterase Urine Negative (Negative); Nitrate Urine Negative (Negative); Protein Urine Neg (Negative); Urine Appearance Clear (CLEAR); Urine Color Yellow (Yellow); Urobilinogen Urine Norm (Negative); pH Urine 5 (5-7)
[2020-04-11 19:09] LABS: Creatinine Urine, Random 83 mg/dL (39-259)
[2020-04-11 19:11] LABS: Urine Random Sodium 34 mmol/L
[2020-04-11 20:58] LABS: Glucose Point of Care 277 mg/dL (70-110)
[2020-04-11] MEDS: cyclobenzaprine 10 mg Tablet PO (21:06)
[2020-04-11] MEDS: trazodone 50 mg Tablet 25 MG PO (21:06)
[2020-04-11 21:42] LABS: Blood Urea Nitrogen 56 mg/dL (6-20); Calcium 8.5 mg/dL (8.5-10.5); Carbon Dioxide 17 mmol/L (22-29); Chloride 97 mmol/L (98-107); Glucose 267 mg/dL (65-115); Osmolality Calculated 289 mOsm/kg (285-295); Sodium 127 mmol/L (136-145)
[2020-04-11 22:18] LABS: Anion Gap 19.9 (5-19)
[2020-04-11 22:20] LABS: Potassium 6.9 mmol/L (3.5-5.1)
[2020-04-11] MEDS: insulin regular-human 10 UNIT in SYRINGE 1 EACH IVP (23:27)
[2020-04-11] MEDS: sodium polystyrene sulfonate 15 gm/60 mL Btl PO (23:31)
[2020-04-12] VITALS (29 sets, daily range): BP systolic 107–139; BP diastolic 69–90; PULSE 75–89; RESP 13–94; TEMP 36.3–37; O2SAT 88–97
--- NOTE | 2020-04-12 01:20 | PC.NURSE ---
NURSING NOTE: ELEVATED POTASSIUM LEVEL: PLACED CALL TO DR. MOYA AT [phone] TO REPORT POTASSIUM LEVEL OF 6.9. RECEIVED ORDERS FOR CALCIUM GLUCONATE, INSULIN AND KAEXOLATE. SEE CHART FOR DOSAGE AND TIMES. ALL VS AND ASSESSMENTS ORDERED. RESTING QUIETLY WITH EYES CLOSED.
[2020-04-12 02:23] LABS: Alanine Aminotransferase 22 U/L (0-41); Albumin Level 3.3 g/dL (3.5-5.2); Alkaline Phosphatase 145 IU/L (40-130); Blood Urea Nitrogen 66 mg/dL (6-20); Calcium 8.7 mg/dL (8.5-10.5); Carbon Dioxide 17 mmol/L (22-29); Chloride 101 mmol/L (98-107); Globulin 2.8 g/dL (1.3-4.6); Glomerular Filtration Rate 23.1 mL/min (90-130); Glucose 125 mg/dL (65-115); Osmolality Calculated 297 mOsm/kg (285-295); Sodium 133 mmol/L (136-145); Total Bilirubin 0.6 mg/dL (0.15-1.2); Total Protein 6.1 g/dL (6.6-8.7)
[2020-04-12 02:26] LABS: Anion Gap 20.3 (5-19); Aspartate Amino Transferase 21 U/L (0-40); Potassium 5.3 mmol/L (3.5-5.1)
[2020-04-12] MEDS: cyclobenzaprine 10 mg Tablet PO (03:39)
[2020-04-12] MEDS: heparin 5,000 unit/mL INJ 1 mL 5000 UNIT SUBCUT ×2 (05:59→12:43)
[2020-04-12 06:36] LABS: Glucose Point of Care 230 mg/dL (70-110)
[2020-04-12 07:15] LABS: Magnesium 1.9 mg/dL (1.7-2.3); Phosphorus 5.5 mg/dL (2.5-4.5); Uric Acid 9.3 mg/dL (3.4-7.0)
[2020-04-12 07:17] LABS: Alanine Aminotransferase 22 U/L (0-41); Albumin Level 3.4 g/dL (3.5-5.2); Alkaline Phosphatase 138 IU/L (40-130); Anion Gap 16.7 (5-19); Aspartate Amino Transferase 18 U/L (0-40); Blood Urea Nitrogen 65 mg/dL (6-20); Calcium 8.4 mg/dL (8.5-10.5); Carbon Dioxide 21 mmol/L (22-29); Chloride 102 mmol/L (98-107); Globulin 2.3 g/dL (1.3-4.6); Glucose 232 mg/dL (65-115); Osmolality Calculated 304 mOsm/kg (285-295); Potassium 5.7 mmol/L (3.5-5.1); Sodium 134 mmol/L (136-145); Total Bilirubin 0.6 mg/dL (0.15-1.2); Total Protein 5.7 g/dL (6.6-8.7)
[2020-04-12 08:00] LABS: Basophils # 0.1 10^3/uL (0.0-0.1); Basophils % 0.5 %; Eosinophils # 0.2 10^3/uL (0.0-0.8); Eosinophils % 2.5 %; Hemoglobin 10.9 g/dL (11.7-16.6); Lymphocytes # 1.8 10^3/uL (0.8-4.8); Lymphocytes % 19.4 %; Mean Corpuscular HGB Conc 32.1 g/dL (30.0-36.0); Mean Corpuscular Hemoglobin 29.1 pg (28.0-34.0); Mean Corpuscular Volume 90.9 fL (80-94); Mean Platelet Volume 9.5 fL (7.4-10.4); Monocytes # 0.5 10^3/uL (0.2-0.9); Monocytes % 5.9 %; Neutrophils # 6.59 10^3/uL (1.8-7.7); Neutrophils % 71.5 %; Nucleated Red Blood Cells % 0 %; Platelet Count 342 10^3/cmm (130-400); Red Blood Count 3.74 10^6/uL (4.1-5.3); Red Cell Distribution Width 15.2 % (12.1-15.1); White Blood Count 9.2 10^3/uL (4.0-10.0)
--- NOTE | 2020-04-12 08:00 | FL_ITS ---
WS: [id number] FL barium swallow modified [id number] REASON FOR EXAM: Pharyngoesoph. dysphagia FLUOROSCOPY TIME: 2.3 minutes FINDINGS: Video fluoroscopy of the swallowing of small barium meals of varying texture and volume was obtained. Speech therapy will render a detailed report on the swallowing. No obstruction in the mid or distal esophagus. FL/FL barium swallow modifd [id number] IMPRESSION: Video fluoroscopy of swallowing.
--- NOTE | 2020-04-12 08:07 | PC.CHAP ---
Pastoral Care Encounter/Spiritual Assessment Type of Contact [] Declined production machine computer operator visit [] Patient/Family/Request visit [] Outpatient visit [] Follow-up visit [] Physician referral [] Code/Alert [x] Routine visit [] Staff referral [] Actively dying [] Patient sleeping [] Family support [] [] Out of room [] Palliative care [] [x] Receiving care in room [] Pre-surgical visit [] Trauma [] Long length of stay [] ICU visit [] Other: Relational/Emotional Strength [] Patient feels connected with others/family/visitors/staff [] Distress [] Loneliness/isolation [] Abandonment Spirituality of Patient [] Person of [place] [] Attends Rastafari of their [place] [] Believes in Prayer [] Reads Bible or Sikhism materials [] There are Spiritual issues to be addressed Communications Superintendent Interventions [x] Prayer [] Active listening [] Non-anxious presence [] Spiritual/emotional support [] Crisis/trauma care [] Spiritual counseling [] Bereavement support [] Provided bereavement packet [] Provided Bible/devotional materials [] Provided toy/stuffed animal, coloring book to patient or family member [] Provided Communion [] Anointing/[place] [] Salvation [x] Completed spiritual assessment [] Other: Impact on Illness or Injury [] Angry [] Fearful [] Anxious [] Often cries [] Exhaustion [] Unable to work [] Unable to attend faith [] Unable to walk/stand [] Unable to read [] Unable to drive [] Unable to eat/drink [] Unable to sleep [] Unable to be with family [] Patient intubated [] Other: Summary Time spent with patient
[2020-04-12] MEDS: sodium chloride 0.9% 1,000 ML 50 ML IV (09:07)
[2020-04-12] MEDS: metoprolol tartrate 50 mg Tablet PO ×2 (09:08→18:25)
[2020-04-12] MEDS: amlodipine 10 mg Tablet PO (09:08)
[2020-04-12] MEDS: clopidogrel 75 mg Tablet PO (09:08)
[2020-04-12] MEDS: levothyroxine 88 mcg Tablet PO (09:08)
[2020-04-12] MEDS: isosorbide mononitrate ER 30 mg Tablet PO ×2 (09:08→18:25)
[2020-04-12] MEDS: aspirin 81 mg EC Tablet PO (09:08)
[2020-04-12] MEDS: citalopram 20 mg Tablet PO (09:08)
[2020-04-12] MEDS: pantoprazole DR 40 mg Tablet PO ×2 (09:08→18:25)
[2020-04-12] MEDS: ranolazine (12HR) 500 mg Tablet PO ×2 (09:08→18:25)
[2020-04-12] MEDS: atorvastatin 40 mg Tablet PO (09:08)
[2020-04-12 09:52] LABS: Coronavirus Lab Test PTC Negative
--- NOTE | 2020-04-12 10:33 | PC.NURSE ---
NITRO-DUR PATIENT'S NITRO PATCH WAS NOT REMOVED AFTER THE 12 HOUR ADMINISTRATION TIME. PATCH WAS STILL PRESENT ON PATIENT'S SKIN WHEN THIS NURSE WAS TO ADMINISTER THE NEXT PATCH. DR. ADAN NOTIFIED. ORDERED TO RESTART THE PATCH TOMORROW MORNING SO TO KEEP THE PATIENT ON HIS NORMAL SCHEDULE.
[2020-04-12 12:25] LABS: Glucose Point of Care 189 mg/dL (70-110)
[2020-04-12] MEDS: morphine IR 15 mg Tablet PO (12:42)
--- NOTE | 2020-04-12 13:52 | PM.PN ---
Subjective Subjective: Interval history: Worried about his situation with his Port-A-Cath where a nurse attempting to access the port and a saline flush spew saline. Reviewed with him how something like that can happen. The port has not been able to draw blood for a bit. Cathflo was inserted appropriately without improvement. The port does still flushed well with infusions just will not draw back. He complains of right foot pain today. At the ankle and midfoot. No reported injury. This is a new abnormality for him. Area is slightly warm. Uric acid is elevated. He did receive diuretics yesterday. He asked me why he could not have IV pain medications. Explained to him that the pain that he is experiencing is a chronic pain that has recurred. He was given oral narcotics at admission. I decreased dosing yesterday. Explained that since narcotics were not something that he usually takes at home did not want to continue him on that much longer while he is here. He expressed understanding of the reasoning why decrease the frequency of medication. VQ scan was not able to be done secondary to lack of peripheral access. With normal D-dimer, normal oxygenation and such will cancel study. Barium swallow study was done. No luis e aspiration but he tends to take very large bites by himself putting him at risk. Speech therapy will come back and talk with him further about this. No change in chest pain Continues to have hyperkalemia. Received Kayexalate, insulin and glucose last night with initial improvement and recurrent elevation today. Vitals/I&O/Wt Last Vital Signs Temp 98.6 F 04/12/20 12:28 Pulse 89 04/12/20 12:28 Resp 18 04/12/20 12:42 BP 139/90 04/12/20 12:28 Pulse Ox 95 04/12/20 12:28 04/11/20 04/12/20 04/12/20 22:59 06:59 14:59 Intake Total 240 / 600 480 / 480 Output Total 1075 / 1900 250 / 2150 850 / 850 Balance -835 / -1300 -250 / -1550 -370 / -370 Physical Exam Const: OTHER: Alert, oriented x3, cooperative, not acutely ill-appearing HENMT: OTHER: Normocephalic atraumatic, moist mucus membranes Eye: OTHER: Pupils equally round Neck/C-Spine: OTHER: Supple Chest: OTHER: Port-A-Cath in place in left upper chest intact Resp: OTHER: Clear to auscultation bilaterally, no rales, rhonchi or wheezes noted, no accessory muscle use noted Cardio: OTHER: Regular rate and rhythm, no murmurs gallops or rubs. Pulses equal throughout GI: OTHER: Abdomen soft, nondistended, positive bowel sounds : OTHER: Deferred Extremity: NARRATIVE EXTREMITY EXAM: Right lateral ankle and right lateral foot with some mild warmth but no erythema. Tender to palpation but no induration, fluctuance. Neuro: OTHER: Face symmetric, speech clear, moves all extremities, Psych: OTHER: Normal affect Skin: OTHER: Chronic rather than acute changes noted Data : 04/12/20 07:51 04/12/20 06:23 A&P Assessment and plan (1) Angina at rest: Acute on chronic problem. Thus far appears to be tolerating Ranexa. Pain continues to be present but not escalating. Has known history of coronary artery disease with stents and chronic angina, chronic CHF with mildly decreased ejection fraction. Evaluation for other potential sources of chest pain initiated to include VQ scan and modified barium swallow both of which were delayed due to Covid PCR testing. He has reported some dysphagia and has a history of PE in the past. VQ was not able to be done. Swallowing study was able to be done. I still tend to think this is the same pain that he is chronically had at this point in time. Status: Acute (2) JESUS (acute kidney injury): Progressively worsening BUN and creatinine with elevated potassium again Lasix has been held since admission and lisinopril was also held. He does have recurrent hyperkalemia noted and decreasing CO2 level. Known diabetic nephropathy with chronic kidney disease stage III. He did dose of Lasix on 04/12. Bladder volume was checked and was high but he is able to nearly completely empty his bladder at will. 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 mellitus remote computer terminal operator insulin use: without remote computer terminal operator use Diabetes mellitus complication status: with kidney complications Diabetes mellitus complication detail: with chronic kidney disease Chronic kidney disease stage: stage 3 (moderate) Chronic kidney disease stage 3 subtype: stage 3b (GFR 30-44) Qualified Code(s): E11.21 - Type 2 diabetes mellitus with diabetic nephropathy; N18.32 - Chronic kidney disease, stage 3b (5) Atherosclerotic heart disease of [place] coronary artery with other forms of angina pectoris: Status: Chronic (6) Anemia: Stable from prior values Status: Chronic Qualifiers: Anemia type: unspecified type Qualified Code(s): D64.9 - Anemia, unspecified Additional A&P Information Port-A-Cath flushing and infusing okay but will not draw blood. Explained that we do not always replace just because were unable to draw blood from it Elevated uric acid and right ankle pain, potential for gout Start some IV fluids Received additional Kayexalate Consult nephrology Monitor labs, urine output and overall clinical status Continue insulin for diabetes, home Metformin is currently held Continue home metoprolol, isosorbide, nitroglycerin patch, aspirin, statin, Plavix, amlodipine Continue home citalopram, Flexeril, levothyroxine, trazodone as needed Continue PPI Continue morphine dosing at current level, not escalating to IV management nor increased frequency of oral dosing for chronic pain issues Monitor right ankle for worsening Monitor H&H for any drop On DVT prophylaxis with subcutaneous heparin Supportive care otherwise Monitor closely on telemetry for any acute changes Full code Answered all of patient's questions Can follow-up regarding Port-A-Cath but explained that we do not always replace just because were unable to draw blood from it. He is already had multiple Port-A-Cath from what I understand Attestations Medical Necessity Statement*: Requires ongoing inpatient stay secondary to continued worsening of renal function and persistent hyperkalemia. Plans are as noted. Coding Level of Care Code Acute Loan Documents Closer for Aaron Irene Diagnoses Angina at rest I20.8 JESUS (acute kidney injury) N17.9 Hyperkalemia E87.5 Diabetes E11.21; N18.32 Diabetes mellitus type: type 2 Diabetes mellitus remote computer terminal operator insulin use: without halfway use Diabetes mellitus complication status: with kidney complications Diabetes mellitus complication detail: with chronic kidney disease Chronic kidney disease stage: stage 3 (moderate) Chronic kidney disease stage 3 subtype: stage 3b (GFR 30-44) Atherosclerotic heart disease of [place] coronary 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 Anemia D64.9 Anemia type: unspecified type
[2020-04-12] MEDS: sodium polystyrene sulfonate 15 gm/60 mL Btl PO (15:17)
[2020-04-12 16:38] LABS: Glucose Point of Care 192 mg/dL (70-110)
[2020-04-12 18:00] LABS: Blood Urea Nitrogen 69 mg/dL (6-20); Calcium 9.1 mg/dL (8.5-10.5); Carbon Dioxide 19 mmol/L (22-29); Chloride 101 mmol/L (98-107); Glomerular Filtration Rate 26.2 mL/min (90-130); Glucose 205 mg/dL (65-115); Osmolality Calculated 308 mOsm/kg (285-295); Sodium 136 mmol/L (136-145)
[2020-04-12 18:18] LABS: Anion Gap 22.1 (5-19); Potassium 6.1 mmol/L (3.5-5.1)
--- NOTE | 2020-04-12 19:04 | PM.CONSULT ---
Providers/Reason For Consult Consulting Physican/Specialty*: Kayleigh Montero DO, telenephrology Reason for Consult*: JESUS, hyperkalemia, CKD Attending Physician: Carolina Durant MD Primary Care Provider: Kp Montanez DO History of Present Illness History of Present Illness Rei Queen II is a 49 year old male who presented for evaluation of chest pain and weakness. He is feeling better. Known CKD due to diabetic nephropathy with baseline serum Cr 1.7 mg/dL. Review of Systems Const: Reports: fatigue Card: Denies: chest pain Resp: Denies: dyspnea GI: Denies: abdominal pain : Denies: urinary hesitancy Musc: Reports: other (pain right foot he believes is gout. improving) Meds/Allergies Home Medications and Allergies Home Medications Medication Instructions Recorded Confirmed Last Taken Type aspirin 81 mg tablet,delayed 81 mg PO DAILY 06/01/19 04/08/20 04/08/20 History release dulaglutide 0.75 mg/0.5 mL 0.75 mg SUBCUT Q7D 06/01/19 04/08/20 04/03/20 History subcutaneous pen injector furosemide 40 mg tablet 40 mg PO QAM 06/01/19 04/08/20 04/08/20 History levothyroxine 88 mcg capsule 88 mcg PO DAILY 06/01/19 04/08/20 04/08/20 History metformin 500 mg tablet 500 mg PO BID 06/01/19 04/08/20 04/08/20 History methocarbamol 750 mg tablet 750 mg PO TID PRN 06/01/19 04/08/20 03/30/20 History metoprolol tartrate 50 mg tablet 50 mg PO BID 06/01/19 04/08/20 04/08/20 History multivitamin 1 tab PO QAM 06/01/19 04/08/20 04/08/20 History diabetic shoes #1 ea 06/09/19 04/08/20 07/06/19 Rx clopidogrel 75 mg tablet 75 mg PO DAILY #90 tab 08/14/19 04/08/20 04/08/20 Rx atorvastatin 40 mg tablet 40 mg PO DAILY #30 tab 10/07/19 04/08/20 04/07/20 Rx cyclobenzaprine 10 mg PO TID PRN 01/07/20 04/08/20 03/30/20 History isosorbide mononitrate 30 mg 30 mg PO BID tab 01/14/20 04/08/20 04/08/20 History tablet,extended release 24 hr CAM WALKER #1 ea 01/28/20 04/08/20 Unknown Rx [place] #1 ea 01/28/20 04/08/20 Unknown Rx promethazine 25 mg PO TID PRN #20 tab 03/15/20 04/08/20 03/18/20 Rx nitroglycerin 1 patch TRANSDERMA DAILY #30 each 03/21/20 04/08/20 04/08/20 Rx omeprazole 20 mg PO DAILY 28 Days #30 cap 03/21/20 04/08/20 04/08/20 Rx lisinopril 10 mg PO DAILY 03/30/20 04/08/20 04/08/20 History nitroglycerin 0.4 mg sublingual 0.4 mg SUBLINGUAL Q5M PRN #30 tab 04/01/20 04/08/20 04/08/20 Rx tablet 2 tabs amlodipine 10 mg PO DAILY 04/08/20 04/08/20 04/08/20 History citalopram 20 mg PO DAILY 04/08/20 04/08/20 04/07/20 History insulin lispro [Humalog Pen] See Rx Instructions .ROUTE .COMPLEX 04/08/20 04/08/20 Unknown History Allergies Allergy/AdvReac Type Severity Reaction Status Date / Time Sulfa (Sulfonamide Allergy Severe ALGY-Difficulty Verified 04/08/20 13:39 Antibiotics) Breathing codeine Allergy ALGY-Anaphy Verified 04/08/20 13:39 laxis haloperidol [From Haldol] Allergy ADR-Irritab Verified 04/08/20 13:39 le Iodinated Contrast Media Allergy ALGY-Difficulty Verified 04/08/20 13:39 Breathing iodine Allergy ALGY-Difficulty Verified 04/08/20 13:39 Breathing ketorolac Allergy ADR-Nausea Verified 04/08/20 13:39 metoclopramide [From Reglan] Allergy ALGY-Difficulty Verified 04/08/20 13:39 Breathing nalbuphine [From Nubain] Allergy ADR-Diarrhe Verified 04/08/20 13:39 a naproxen [From Naprosyn] Allergy ADR-Vomitin Verified 04/08/20 13:39 g ondansetron [From Zofran] Allergy ADR-Abdominal Verified 04/08/20 13:39 Pain prochlorperazine Allergy ADR-Irritab Verified 04/08/20 13:39 [From Compazine] le ranolazine [From Ranexa] Allergy ALGY-Difficulty Verified 04/08/20 13:39 Breathing Current Medications Current Medications Generic Name Dose Route Start Last Admin Trade Name Freq PRN Reason Stop Dose Admin Amlodipine Besylate 10 mg 04/09/20 09:00 04/12/20 09:08 Amlodipine 10 Mg Tablet PO 10 mg DAILY RANDY Administration Aspirin 81 mg 04/09/20 09:00 04/12/20 09:08 Aspirin 81 Mg Ec Tablet PO 81 mg DAILY RANDY Administration Atorvastatin Calcium 40 mg 04/09/20 09:00 04/12/20 09:08 Atorvastatin 40 Mg Tablet PO 40 mg DAILY RANDY Administration Citalopram Hydrobromide 20 mg 04/09/20 09:00 04/12/20 09:08 Citalopram 20 Mg Tablet PO 20 mg DAILY RANDY Administration Clopidogrel Bisulfate 75 mg 04/09/20 09:00 04/12/20 09:08 Clopidogrel 75 Mg Tablet PO 75 mg DAILY RANDY Administration Cyclobenzaprine HCl 10 mg 04/08/20 20:39 04/12/20 03:39 Cyclobenzaprine 10 Mg Tablet PO 10 mg TID PRN Administration MUSCLE SPASMS Sodium Chloride 1,000 mls @ 50 mls/hr 04/12/20 07:45 04/12/20 09:07 Sodium Chloride 0.9% IV 04/13/20 03:44 50 mls/hr .Q20H RANDY Administration Insulin Aspart 0 unit 04/08/20 21:00 04/12/20 18:24 Insulin Aspart 100 Unit/1 Ml SUBCUT 6 unit WM&BEDTIME RANDY Administration Protocol Isosorbide Mononitrate 30 mg 04/09/20 09:00 04/12/20 18:25 Isosorbide Mononitrate Er 30 Mg Tablet PO 30 mg BID RANDY Administration Levothyroxine Sodium 88 mcg 04/09/20 09:00 04/12/20 09:08 Levothyroxine 88 Mcg Tablet PO 88 mcg DAILY RANDY Administration Metoprolol Tartrate 50 mg 04/09/20 09:00 04/12/20 18:25 Metoprolol Tartrate 50 Mg Tablet PO 50 mg BID RANDY Administration Morphine Sulfate 15 mg 04/11/20 17:06 04/12/20 12:42 Morphine Ir 15 Mg Tablet PO 15 mg Q12H PRN Administration SEVERE PAIN Pantoprazole Sodium 40 mg 04/10/20 19:45 04/12/20 18:[address] 40 Mg Tablet PO 40 mg BIDWM RANDY Administration Promethazine HCl 12.5 mg 04/08/20 20:39 04/10/20 23:38 Promethazine 25 Mg Tablet PO 12.5 mg Q12H PRN Administration NAUSEA Ranolazine 500 mg 04/09/20 16:00 04/12/20 18:25 Ranolazine (12hr) 500 Mg Tablet PO 500 mg BID RANDY Administration Trazodone HCl 25 mg 04/09/20 16:04 04/11/20 21:06 Trazodone 50 Mg Tablet PO 25 mg BEDTIME PRN Administration SLEEP PFSH Acute PFSH: Medical History Anemia Atherosclerotic heart disease of [place] coronary artery with other forms of angina pectoris -hx of CAD with prior stenting of proximal LAD, LCx, RCA Chronic anticoagulation Chronic kidney disease -baseline Cr appears to be around 1.5 Chronic systolic heart failure EF=47%, diffuse LV hypokinesis, mildly increased LA size Depression Diabetes A1c-7.6 (08/2019) Foot drop, left H/O acute myocardial infarction H/O deep venous thrombosis developed compartment syndrome Hyperlipidemia Hypertension Hypothyroidism Ischemic cardiomyopathy Obesity (BMI 30-39.9) Osteoarthritis of spine Surgical History H/O colonoscopy 08/2015 H/O esophagogastroduodenoscopy 08/2015 H/O removal of testicle left H/O skin graft H/O vasectomy History of appendectomy History of coronary artery stent placement 5x History of excision of mass 06/08/2019: Subcutaneous mass on back History of inguinal hernia repair, bilateral 2000 History of removal of Port-a-Cath Hx of cholecystectomy Port-A-Cath in place Family History Grandfather Cancer skin cancer Parkinson disease Brother Hypertension Father Heart disease Mother Hypertension Stroke Aneurysm Grandmother Aneurysm Other Crohn disease Denies family history of Anesthesia complication Bleeding disorder Social History Smoking and tobacco status: never smoked Alcohol intake: former Former alcohol use details: Only holidays Lives independently: Yes Household members: significant other Marital status: Single Current occupational status: disabled History of recent travel: No Vitals/I&O/Wt Last Vital Signs Temp 97.8 F 04/12/20 14:47 Pulse 84 04/12/20 14:47 Resp 21 H 04/12/20 14:47 BP 110/75 04/12/20 14:47 Pulse Ox 94 04/12/20 14:47 04/12/20 04/12/20 04/12/20 06:59 14:59 22:59 Intake Total 480 / 480 240 / 720 Output Total 250 / 2150 850 / 850 Balance -250 / -1550 -370 / -370 240 / -130 Data Labs: Other Labs: urinalysis:neg albumin, normal, but urine albumin/Cr ratio in December was 1580 mg/g urine sodium 34, urine Cr 83, FeNa 0.78% Other Data: Other data: ECHO EF 50% CT Abd 03/18/20: renal atrophy, vascular calcification, perinephric inflammation A&P Additional A&P Information Impression: 1. Acute kidney injury, nonoliguric, FeNa < 1%, possibly due to volume depletion. Was on furosemide and lisinopril prior to admission 2. Hyperkalemia, metabolic acidosis 3. Chronic kidney disease 4. Diabetes, hyperglycemia 5. Hypertension, well-controlled 6. Gout, hyperuricemia Recommendation: 1. Agree with holding ACEi, furosemide, metformin 2. Continue IVF hydration 3. Low potassium diet, add sodium bicarbonate, kayexylate, optimize blood glucose control. Consult Attestations Medical Necessity Statement: requires continued hospitalization due to hyperkalemia Time Spent in Patient Care: Greater than 35 minutes Coding Level of Care Code Acute Instructor Knitting for Aaron Irene
[2020-04-12] MEDS: sodium polystyrene sulfonate 15 gm/60 mL Btl 30 GM PO (19:20)
[2020-04-12] MEDS: calcium gluconate 0.1 gm/mL 10% SDV 10mL 1 GM IVP (19:20)
[2020-04-12 21:31] LABS: Glucose Point of Care 275 mg/dL (70-110)
[2020-04-12] MEDS: sodium bicarbonate 650 mg Tablet PO (21:52)
[2020-04-13] VITALS (14 sets, daily range): BP systolic 112–150; BP diastolic 67–95; PULSE 77–101; RESP 13–21; TEMP 36.6–36.9; O2SAT 89–97
[2020-04-13] MEDS: morphine IR 15 mg Tablet PO ×2 (02:00→15:01)
[2020-04-13] MEDS: cyclobenzaprine 10 mg Tablet PO ×2 (02:01→21:09)
[2020-04-13 06:14] LABS: Glucose Point of Care 304 mg/dL (70-110)
[2020-04-13 06:15] LABS: Basophils # 0.1 10^3/uL (0.0-0.1); Basophils % 0.6 %; Eosinophils # 0.2 10^3/uL (0.0-0.8); Hematocrit 34.5 % (42.0-52.0); Hemoglobin 10.9 g/dL (11.7-16.6); Lymphocytes # 0.9 10^3/uL (0.8-4.8); Lymphocytes % 9.7 %; Mean Corpuscular HGB Conc 31.6 g/dL (30.0-36.0); Mean Corpuscular Hemoglobin 29.2 pg (28.0-34.0); Mean Corpuscular Volume 92.5 fL (80-94); Mean Platelet Volume 9.9 fL (7.4-10.4); Monocytes # 0.7 10^3/uL (0.2-0.9); Neutrophils # 7.79 10^3/uL (1.8-7.7); Neutrophils % 80.3 %; Nucleated Red Blood Cells % 0 %; Platelet Count 329 10^3/cmm (130-400); Red Blood Count 3.73 10^6/uL (4.1-5.3); Red Cell Distribution Width 15.3 % (12.1-15.1); White Blood Count 9.7 10^3/uL (4.0-10.0)
[2020-04-13 06:32] LABS: Blood Urea Nitrogen 62 mg/dL (6-20); Calcium 9.4 mg/dL (8.5-10.5); Carbon Dioxide 24 mmol/L (22-29); Chloride 105 mmol/L (98-107); Creatinine Clr Calc Pharmacy 46.9894; Glomerular Filtration Rate 33.5 mL/min (90-130); Glucose 267 mg/dL (65-115); Magnesium 1.8 mg/dL (1.7-2.3); Osmolality Calculated 319 mOsm/kg (285-295); Phosphorus 4.2 mg/dL (2.5-4.5); Sodium 141 mmol/L (136-145)
[2020-04-13 06:34] LABS: Anion Gap 17.6 (5-19); Potassium 5.6 mmol/L (3.5-5.1)
[2020-04-13 07:00] LABS: Creatine Phosphokinase 61 U/L (39-308)
--- NOTE | 2020-04-13 09:00 | PC.NURSE ---
patient and concerned about port not drawing blood but flushing well. dr samuel notified. also notified dr of blood sugar beign 304 and patient refusing insulin because he doesnt feel comfortable with the sliding scale dose ordered.
[2020-04-13] MEDS: atorvastatin 40 mg Tablet PO (09:04)
[2020-04-13] MEDS: clopidogrel 75 mg Tablet PO (09:04)
[2020-04-13] MEDS: sodium bicarbonate 650 mg Tablet PO ×3 (09:04→21:05)
[2020-04-13] MEDS: metoprolol tartrate 50 mg Tablet PO ×2 (09:04→17:18)
[2020-04-13] MEDS: aspirin 81 mg EC Tablet PO (09:04)
[2020-04-13] MEDS: ranolazine (12HR) 500 mg Tablet PO ×2 (09:04→17:18)
[2020-04-13] MEDS: pantoprazole DR 40 mg Tablet PO ×2 (09:04→17:17)
[2020-04-13] MEDS: amlodipine 10 mg Tablet PO (09:04)
[2020-04-13] MEDS: levothyroxine 88 mcg Tablet PO (09:04)
[2020-04-13] MEDS: citalopram 20 mg Tablet PO (09:04)
[2020-04-13] MEDS: isosorbide mononitrate ER 30 mg Tablet PO ×2 (09:04→17:18)
--- NOTE | 2020-04-13 10:10 | USCV_ITS ---
PigeonRei hicks Age: 49 Gender: M : 1970 Exam Date: 04/13/2020 10:36 Ordering Phys: Carolina Durant MD Technologist: Charmaine Frances [place]am [place] [facility] [place]: PORT WONT DRAW BLOOD, PORT IN LEFT SUBCLAVIAN HISTORY: Port in left subclavian, unable to draw from it. PROCEDURES: The following venous structures were evaluated: internal jugular vein, subclavian vein, axillary vein, and brachial veins. In addition, the basilic vein and cephalic vein. Serial compression, augmentation maneuvers, and spectral Doppler flow evaluation were performed. FINDINGS: Left proximal subclavian appears to have partial thrombus within. Left Cephalic not identified at this time. Left basilic and brachial vein apprear to be thrombused with no flow. Thrombus does appear acute. CONCLUSIONS Quality of exam is suboptimal. DVT is noted in the proximal left subclavian, basilic and brachial veins. Dr. Tarsha Farmer DO (Electronically Signed) Final Date: 13 April 2020 11:29 S
--- NOTE | 2020-04-13 10:27 | P.PN_ITS ---
Subjective Subjective: Interval history: had bowel movement last night and twice today after kayexylate foot still hurts. He is not willing to try prednisone to treat gout knowing that he will require additional insulin for blood sugar control Medications: Reviewed: Yes Vitals/I&O/Wt Last Vital Signs Temp 98.1 F 04/13/20 04:52 Pulse 96 04/13/20 04:52 Resp 21 H 04/13/20 04:52 BP 147/85 04/13/20 04:52 Pulse Ox 92 04/13/20 04:52 04/12/20 04/13/20 04/13/20 22:59 06:59 14:59 Intake Total 240 / 720 1000 / 1720 Output Total 150 / 1000 300 / 1300 Balance 90 / -280 700 / 420 Data : 04/13/20 05:57 04/13/20 05:57 A&P Additional A&P Information Impression: 1. Acute kidney injury, nonoliguric, improving, FeNa < 1%, possibly due to volume depletion. Was on furosemide and lisinopril prior to admission 2. Hyperkalemia, metabolic acidosis, improving 3. Chronic kidney disease 4. Diabetes, hyperglycemia 5. Hypertension 6. Gout, hyperuricemia Recommendation: 1. Agree with holding ACEi, furosemide, metformin 2. Continue IVF hydration, sodium bicarbonate 3. Low potassium diet, optimize blood glucose control. From my standpoint he would be stable for discharge with serum potassium < 5.5. He can be sent home with kayexylate rx 15 g QOD. I asked him to call Dr Weiss today for an appointment next week. May require 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 potassium binder (lokelma or veltassa) which will rimaley require prior authorization from rx plan. Attestations Medical Necessity Statement*: per primary service Time Spent in Patient Care: 16 - 35 minutes Coding Level of Care Code Acute Public Health Inspector for Aaron Irene
[2020-04-13 12:23] LABS: Glucose Point of Care 294 mg/dL (70-110)
--- NOTE | 2020-04-13 14:07 | PM.PN ---
Subjective Subjective: Interval history: Chest pain is down to a 2-3 out of 10 at worst currently. He has not ambulated much in the halls but this was quite encouraged. Continues to be concerned about his Port-A-Cath. I discussed with surgery who recommended a venous duplex of the left upper extremity to evaluate the venous system. It does appear to have a small clot in the proximal left subclavian that could account for the difficulty with blood draws. In addition there was some clotting in the basilic vein and one of the brachial veins. Again reviewed with surgery. They recommended initiation of Eliquis. Patient has been on this in the past. We have already tried Cathflo several times without success. The catheter does continue to flush okay it just will not draw back blood. Again explained that replacing the port at this time, when it is actually functioning, is not the usual course of action. Explained that most likely the Port-A-Cath would not be drawing back blood prior to discharge. I gave Mr. Queen an opportunity to ask questions and he seemed agreeable to this plan. His right foot pain is better than it was yesterday without any specific intervention. Renal function is better with some fluids overnight. Patient denies any recent gross bleeding beyond bruises presently. Platelets are okay, H&H reviewed. Patient declined insulin therapy this morning because he did not feel like eating. He did take it at lunchtime. I have offered him prednisone for possible gout but presently not wanting to take this due to hyperglycemia and difficulties managing blood sugars, particularly with him being off of Metformin. Explained the Metformin was currently not going to be resumed at discharge due to renal dysfunction as well. Vitals/I&O/Wt Last Vital Signs Temp 98.4 F 04/13/20 12:00 Pulse 80 04/13/20 12:00 Resp 21 H 04/13/20 12:00 BP 135/88 04/13/20 12:00 Pulse Ox 93 04/13/20 12:00 04/12/20 04/13/20 04/13/20 22:59 06:59 14:59 Intake Total 240 / 720 1000 / 1720 360 / 360 Output Total 150 / 1000 300 / 1300 Balance 90 / -280 700 / 420 360 / 360 Physical Exam Const: OTHER: Alert, oriented x3, cooperative, not acutely ill-appearing Chest: OTHER: Port-A-Cath in place in left upper chest intact still infusing Resp: OTHER: Clear to auscultation bilaterally, no rales, rhonchi or wheezes noted, no accessory muscle use noted Cardio: OTHER: Regular rate and rhythm, no murmurs gallops or rubs. Pulses equal throughout GI: OTHER: Abdomen soft, nondistended, positive bowel sounds Extremity: NARRATIVE EXTREMITY EXAM: Right lateral ankle and right lateral foot with decreased warmth today compared to yesterday. Slight edema in the lateral malleolus region, no fluctuance or induration. No erythema. Not as tender to palpation. Neuro: OTHER: Face symmetric, speech clear, moves all extremities, gait normal while caring IV pole from his room to the desk Psych: OTHER: Flat affect Data : 04/13/20 05:57 04/13/20 05:57 A&P Assessment and plan (1) Angina at rest: Improved, tolerating Ranexa, though occasionally with some dizziness. Pain has not resolved completely but I am not sure that it ever has that I have known him. Evaluation for other potential sources of chest pain initiated to include VQ scan (not able to be done) and modified barium swallow(no aspiration) both of which were delayed due to Covid PCR testing. He has reported some dysphagia and has a history of PE in the past. Cannot rule out a musculoskeletal component. I believe currently this is the same pain that he is chronically has. Status: Acute (2) JESUS (acute kidney injury): Some improvement overnight after fluids Known diabetic nephropathy with chronic kidney disease stage III. Lasix was initially held but then he received 1 dose on 04/12. Bladder volume was checked and was high but he is able to nearly completely empty his bladder at will. Seen on April 12 was low suggesting prerenal state for which fluids were administered. Status: Acute (3) Hyperkalemia: Recurrent, feel secondary to acute kidney injury, a bit improved today Status: Acute (4) Diabetes: Off of home Metformin secondary to renal function, on insulin presently, also uses Trulicity at home Intermittently refuses insulin therapy Status: Chronic Qualifiers: Diabetes mellitus type: type 2 Diabetes mellitus rodent 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 insulin use: without rodent 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 use Diabetes mellitus complication status: with kidney complications Diabetes mellitus complication detail: with chronic kidney disease Chronic kidney disease stage: stage 3 (moderate) Chronic kidney disease stage 3 subtype: stage 3b (GFR 30-44) Qualified Code(s): E11.21 - Type 2 diabetes mellitus with diabetic nephropathy; N18.32 - Chronic kidney disease, stage 3b (5) Atherosclerotic heart disease of [place] coronary artery with other forms of angina pectoris: Status: Chronic (6) Anemia: Stable from prior values Status: Chronic Qualifiers: Anemia type: unspecified type Qualified Code(s): D64.9 - Anemia, unspecified Additional A&P Information Port-A-Cath flushing and infusing okay but will not draw blood > venous duplex shows some clot formation in the proximal left subclavian vein near the device as well as some basilic and one brachial vein. Patient denies constant arm pain or swelling or specific location of the pain. Anytime he has pain in the left arm is associated with chest pain and no different than his usual angina. Elevated uric acid and right ankle pain, potential for gout, has actually had some improvement with hydration, hesitant to use steroids due to risk of hypoglycemia Continue IV fluids Appreciate nephrology input Hopefully will show continued improvement tomorrow Continue to hold Lasix and lisinopril Metformin is held due to renal dysfunction also Have asked nursing to document if he declines insulin therapy Continue home metoprolol, isosorbide, nitroglycerin patch, aspirin, statin, Plavix, amlodipine Continue home citalopram, Flexeril, levothyroxine, trazodone as needed Continue PPI Continue morphine dosing at current level, not escalating to IV management nor increased frequency of oral dosing for chronic pain issues Continue to right ankle for worsening Discussed Port-A-Cath and venous duplex results with surgery who recommended resumption of anticoagulation. As he has been on Eliquis in the past and tolerated I have started this back after discussion an opportunity to have questions with him. He understands the risk of bleeding and the potential benefits in helping improve his Port-A-Cath Subcu heparin was stopped due to initiation of Eliquis Increase activity Supportive care otherwise Full code Answered all of patient's questions As long as renal function continues to improve, potassium is not continuing to elevate and no other acute issues overnight, anticipate potential discharge tomorrow with outpatient follow-up to include primary care provider Dr. Montanez, cardiology, I believe sees Dr. Vee, Dr. Weiss with nephrology and potentially surgery depending on how things go with his Port-A-Cath. Discharge plan was discussed with the patient who is agreeable at this time. Will have to determine plan of action in terms of lisinopril and Lasix which were both held. Prescriptions have been sent to [facility] pharmacy in the event that he is able to be discharged tomorrow on the holiday -I discussed with the patient sending the prescriptions to [facility] pharmacy prior to transmitting them. Would benefit from chronic care management in the outpatient setting although will require somebody willing to address questions and concerns on a regular basis to help decrease potential need for hospitalizations. Attestations Medical Necessity Statement*: Requires ongoing inpatient management to ensure continued improvement in renal function and potassium levels with fluids overnight again. He remains off of lisinopril and Lasix, in addition to Metformin. He is being started on Eliquis. His chest pain is improved. Hopefully we can get him home tomorrow providing no further acute issues. Coding Level of Care Code Acute [employer] for [facility] Victoria Diagnoses Angina at rest I20.8 JESUS (acute kidney injury) N17.9 Hyperkalemia E87.5 Diabetes E11.21; N18.32 Diabetes mellitus type: type 2 Diabetes mellitus rodent 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 insulin use: without nursing home use Diabetes mellitus complication status: with kidney complications Diabetes mellitus complication detail: with chronic kidney disease Chronic kidney disease stage: stage 3 (moderate) Chronic kidney disease stage 3 subtype: stage 3b (GFR 30-44) Atherosclerotic heart disease of [place] coronary 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 Anemia D64.9 Anemia type: unspecified type
[2020-04-13] MEDS: sodium chloride 0.9% 1,000 ML 50 ML IV (15:02)
--- NOTE | 2020-04-13 16:00 | PC.NURSE ---
patient being hooked back up to fluids per order. when flushing port, attempt to draw back again. this time good blood return was obtained. flushed and fluids started.
[2020-04-13 16:39] LABS: Glucose Point of Care 248 mg/dL (70-110)
[2020-04-13] MEDS: apixaban 5 mg Tablet 10 MG PO (17:18)
--- NOTE | 2020-04-13 18:28 | PC.NURSE ---
patient had a rather uneventful shift. eliquis was started per dr samuel. medications were sent to [facility] pharmacy per the patient request. needs within reach.
[2020-04-13] MEDS: trazodone 50 mg Tablet 25 MG PO (21:09)
--- NOTE | 2020-04-13 21:38 | PC.NURSE ---
NURSE NOTE: PT ALERT AND ORIENTED X4 , MOVES ALL EXTREMITIES AND FOLLOWS ALL COMMANDS. RATES CP AT 6/10. MEDICATIONS GIVEN ORDERED. ALL VS AND ASSESSMENTS ORDERED. NO DISTRESS NOTED AT THIS TIME.
[2020-04-14] VITALS (8 sets, daily range): BP systolic 100–132; BP diastolic 67–84; PULSE 74–95; RESP 16–23; TEMP 36.5–36.6; O2SAT 91–97
[2020-04-14] MEDS: promethazine 25 mg Tablet 12.5 MG PO (03:04)
[2020-04-14] MEDS: morphine IR 15 mg Tablet PO (03:05)
[2020-04-14 03:29] LABS: Basophils # 0.1 10^3/uL (0.0-0.1); Basophils % 0.4 %; Eosinophils # 0.2 10^3/uL (0.0-0.8); Eosinophils % 1.5 %; Hematocrit 32.5 % (42.0-52.0); Hemoglobin 10.5 g/dL (11.7-16.6); Lymphocytes # 1.2 10^3/uL (0.8-4.8); Lymphocytes % 7.9 %; Mean Corpuscular HGB Conc 32.3 g/dL (30.0-36.0); Mean Corpuscular Volume 89.8 fL (80-94); Mean Platelet Volume 9.2 fL (7.4-10.4); Monocytes # 1.2 10^3/uL (0.2-0.9); Neutrophils # 12.25 10^3/uL (1.8-7.7); Neutrophils % 81.7 %; Nucleated Red Blood Cells % 0 %; Platelet Count 324 10^3/cmm (130-400); Red Blood Count 3.62 10^6/uL (4.1-5.3); Red Cell Distribution Width 15.2 % (12.1-15.1)
[2020-04-14 03:45] LABS: Blood Urea Nitrogen 58 mg/dL (6-20); Calcium 8.7 mg/dL (8.5-10.5); Carbon Dioxide 22 mmol/L (22-29); Chloride 101 mmol/L (98-107); Glomerular Filtration Rate 30.1 mL/min (90-130); Glucose 186 mg/dL (65-115); Osmolality Calculated 301 mOsm/kg (285-295); Sodium 135 mmol/L (136-145)
[2020-04-14 06:00] LABS: Glucose Point of Care 205 mg/dL (70-110)
[2020-04-14] MEDS: apixaban 5 mg Tablet 10 MG PO (06:02)
[2020-04-14] MEDS: metoprolol tartrate 50 mg Tablet PO (08:45)
[2020-04-14] MEDS: levothyroxine 88 mcg Tablet PO (08:45)
[2020-04-14] MEDS: atorvastatin 40 mg Tablet PO (08:45)
[2020-04-14] MEDS: pantoprazole DR 40 mg Tablet PO (08:46)
[2020-04-14] MEDS: isosorbide mononitrate ER 30 mg Tablet PO (08:46)
[2020-04-14] MEDS: ranolazine (12HR) 500 mg Tablet PO (08:46)
[2020-04-14] MEDS: clopidogrel 75 mg Tablet PO (08:46)
[2020-04-14] MEDS: amlodipine 10 mg Tablet PO (08:46)
[2020-04-14] MEDS: aspirin 81 mg EC Tablet PO (08:46)
[2020-04-14] MEDS: citalopram 20 mg Tablet PO (08:46)
[2020-04-14] MEDS: sodium bicarbonate 650 mg Tablet PO ×2 (08:46→15:01)
--- NOTE | 2020-04-14 09:17 | PC.NURSE ---
THE PATIENT'S NITRO PATCH WAS NOT REMOVED LAST NIGHT AND WAS STILL ON THIS MORNING. REMOVED AT 0830 TODAY. WILL RESUME NITRO PATCH SCHEDULE IN THE MORNING.
--- NOTE | 2020-04-14 09:32 | PC.SOCIAL ---
IM explained and copy provided to patient. Patient verbalized understanding of right to appeal and had no other questions.
[2020-04-14 11:16] LABS: Glucose Point of Care 164 mg/dL (70-110)
[2020-04-14] MEDS: sodium chloride 0.9% 1,000 ML 50 ML IV (12:01)
[2020-04-14] MEDS: cyclobenzaprine 10 mg Tablet PO (12:05)
--- NOTE | 2020-04-14 15:03 | P.DS_ITS ---
Discharge Providers Date of Admission: 04/11/20 11:39 Date of Discharge: April 14, 2020 Attending Provider at Admission: Rosi Etienne MD Attending Provider at Discharge: Carolina Durant MD Consults: Dr. Vee with cardiology Dr Linares with Nephrology Primary Care Provider: Kp Montanez DO Diagnoses at Discharge Discharge Diagnosis (1) Angina at rest: Status: Acute (2) JESUS (acute kidney injury): Status: Acute (3) Hyperkalemia: Status: Acute (4) DVT (deep venous thrombosis): Status: Acute Permanent problem details: Proximal left subclavian, basilic and brachial veins, started eliquis this stay, felt present prior to admission Qualifiers: DVT location: upper extremity Affected thrombotic vein of extremity: other upper extremity vein Chronicity: acute Laterality: left Qualified Code(s): I82.622 - Acute embolism and thrombosis of deep veins of left upper extremity (5) Gout: Status: Acute Qualifiers: Gout site: ankle Gout etiology: due to renal impairment Chronicity: acute Laterality: right Qualified Code(s): M10.371 - Gout due to renal impairment, right ankle and foot (6) 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: Status: Chronic Permanent problem details: hx of CAD with prior stenting of proximal LAD, LCx, RCA (7) Chronic kidney disease: Status: Chronic Permanent problem details: -baseline Cr appears to be around 1.5 Qualifiers: Chronic kidney disease stage: stage 3 (moderate) Chronic kidney disease stage 3 subtype: stage 3b (GFR 30-44) Qualified Code(s): N18.32 - Chronic kidney disease, stage 3b (8) Diabetes: Status: Chronic Permanent problem details: A1c-7.6 (08/2019) Qualifiers: Diabetes mellitus type: type 2 Diabetes mellitus [facility] insulin use: with terminal operations manager use Diabetes mellitus complication status: with kidney complications Diabetes mellitus complication detail: with chronic kidney disease Chronic kidney disease stage: stage 3 (moderate) Chronic kidney disease stage 3 subtype: stage 3b (GFR 30-44) Qualified Code(s): E11.21 - Type 2 diabetes mellitus with diabetic nephropathy; N18.32 - Chronic kidney disease, stage 3b; Z79.4 - prison (current) use of insulin (9) Chronic systolic heart failure: Status: Chronic Permanent problem details: EF=47%, diffuse LV hypokinesis, mildly increased LA size (10) Anemia: Status: Chronic Qualifiers: Anemia type: due to chronic kidney disease Chronic kidney disease stage: stage 3 (moderate) Chronic kidney disease stage 3 subtype: stage 3b (GFR 30-44) Qualified Code(s): N18.32 - Chronic kidney disease, stage 3b; D63.1 - Anemia in chronic kidney disease Other Information Additional DC diagnoses/information: Port-A-Cath malfunction, related to DVT in left venous system Hyperlipidemia Hypertension Hypothyroidism Osteoarthritis Reason for Visit Reason for Visit: CHEST PAIN Hospital Course Hospital Course Mr. Queen presented on April 08 with complaint of anginal pain at rest. He had hypotension, acute kidney injury, hyperglycemia. He has known history of coronary artery disease with prior stents. Last cardiac catheterization earlier this year with patent stents. He is chronically on isosorbide as well as nitro patch and takes sublingual nitroglycerin when he has chest pain. This is in addition to usual management with aspirin, Plavix, statin, beta-blockade, among others. He was seen by cardiology who recommended maximal medical management. EKG did not show any ischemic changes. Ultimately in consultation with him decision was made to restart him on some Ranexa. With this and other management as chest pain finally improved to what is his usual baseline of no more than a 2-3. He ambulated in halls without increased exertion and from a cardiac standpoint was felt stable for discharge home. Other sources of potential chest pain were evaluated. A D-dimer was checked and was negative. VQ scan was ordered but we were unable to get peripheral access despite multiple attempts. Given lack of hypoxemia did not pursue repeat attempts to get the study. He did have a modified barium swallow. No evidence of obstruction was seen. Speech discussed with him not taking such big bites of food to decrease the potential risk for inadvertent aspiration at times simply due to volume. He is on chronic PPI and this was continued. Pain was initially treated with medical management for known conditions as well as with some oral morphine. Dosing of this was gradually decreased. He asked about pain management for arthritis pain prior to discharge. Recommended Tylenol arthritis at this point in time. He has some muscle relaxer prescriptions does not on chronic narcotic therapy. In terms of renal function, patient looks to have baseline creatinine may be around 1.6. BUN and creatinine on presentation were 53/2.1. He has had issues with nausea and vomiting at some point prior to admission. He was still taking his Lasix and lisinopril in addition to nitrates. He was hypotensive on arrival. Suspect a combination of volume depletion and possible ATN from hypotension prior to ED presentation. No profoundly low blood pressures are noted in documentation upon my review. Fena done later in the hospital stay was consistent with prerenal state. Diuretics and MACIEJ inhibitor were held and low volume IV fluids given. Potassium remained persistently elevated despite limiting any potassium containing medications or fluids and administering Kayexalate. Prior to discharge potassium was finally within a normal range. BUN and creatinine were improved to 58/2.3. I have reviewed with him and his Lasix, lisinopril and Metformin presently secondary to renal function as well as to avoid any form of NSAID therapy with him. He will have repeat labs prior to his follow-up with cardiology on April 19. Recommend follow-up closely with Dr. Weiss as well. Sodium bicarbonate was added by nephrology here. Sodium on the day of discharge was at 5.0. Patient was checked for urinary retention without evidence of such. Upon presentation, patient's and him complained of Port-A-Cath not being able to have blood drawn from it. Attempts were made to open up the access with Cathflo without success. Ultimately venous duplex of the left upper extremity to include visible veins approaching the Port-A-Cath was done. This ended up showing clot formation in the proximal subclavian near the port. Also noted were decreased flow in one of the brachial veins and the basilic vein. Discussed with the patient recommendation to resume Eliquis which he had p reviously been on. He was agreeable to this plan. Reviewed risk of bleeding and need to notify providers taking this medication prior to any invasive procedures. Also discussed with plan to start this back up. Both were agreeable. Prescription was provided. Based on the description of port not having blood draw previously, feel that this was present on admission. The previous Eliquis had been stopped sometime within the last few months as I understand it. He had been prescribed due to history of DVT and PE. Mr. Queen complained of right foot pain primarily on the lateral side of the foot and the lateral malleolus. Clinically was suspicious for gout. Uric acid was elevated at 9.3. Patient was offered steroids but declined secondary to hyperglycemia concerns. A prescription for this was provided at discharge should this get worse. With hydration and improvement in renal dysfunction however warmth and erythema had resolved as had the mild edema. Ankle and lateral foot remain mildly tender to palpation but he was able to ambulate and tolerate examination without significant difficulty. He did complain of left knee pain on the day of discharge but stated that this was similar to chronic arthritis pain. He has had prior steroid injections most recent a couple of months ago. Recommended Tylenol arthritis with a maximum of 3 tablets a day. For patient's diabetes, blood sugars remained elevated. Hemoglobin A1c is 7.6 at most recent check. Currently Metformin is held due to renal dysfunction but he can continue the other usual therapies. On , patient felt well enough to be discharged home and potassium had stabilized and no new acute issues had arisen such that patient was felt stable for discharge home. The only thing noted was increase in white count from blood work that had been collected. Patient not had any fevers was hemodynamically stable and not ill-appearing. Could be related to concerns for gout despite improvement in right foot pain. As previously noted he does have quick follow-up and will present back to the emergency room should he have any acute or new issues of concern. Again I spoke with both the patient and his at length answering all of their questions prior to disposition. Physical Exam Const: OTHER: Alert, oriented x3, cooperative, not acutely ill-appearing, eager for discharge Chest: OTHER: Port-A-Cath in place in left upper chest, blood return noted currently Resp: OTHER: Clear to auscultation bilaterally, no rales, rhonchi or wheezes noted, no accessory muscle use noted, no distress. Cardio: OTHER: Regular rate and rhythm, no murmurs gallops or rubs. GI: OTHER: Abdomen soft, nontender, positive bowel sounds Extremity: NARRATIVE EXTREMITY EXAM: Right lateral ankle and right lateral foot without warmth, swelling or erythema today, still mild tenderness. Both feet puffy (was sitting on side of bed with feet down upon my arrival). Left knee without warmth or erythema. No bogginess. No posterior edema or tenderness. Not painful with palpation. Chronic scarring to both lower extremities from prior cutdowns. No pretibial pitting edema. Neuro: OTHER: Face symmetric, speech clear, moves all extremities, extraocular movements intact Psych: OTHER: Flat affect Discharge Data Data Completed and Pending: Completed Studies During Hospitalization Category Date Time Status [place] barium swallow modifd 98730 Rout ine Exams 04/12/20 08:00 Completed XR chest 1V chase ble 23532 Stat Exams 04/08/20 13:30 [place] [address] Routin e Ultrasound 04/13/20 10:10 Completed VENOUS DUPLEX LUE 04/13/2020 HISTORY: Port in left subclavian, unable to draw from it. PROCEDURES: The following venous structures were evaluated: internal jugular vein, subclavian vein, axillary vein, and brachial veins. In addition, the basilic vein and cephalic vein. Serial compression, augmentation maneuvers, and spectral Doppler flow evaluation were performed. FINDINGS: Left proximal subclavian appears to have partial thrombus within. Left Cephalic not identified at this time. Left basilic and brachial vein apprear to be thrombused with no flow. Thrombus does appear acute. CONCLUSIONS Quality of exam is suboptimal. DVT is noted in the proximal left subclavian, basilic and brachial veins. Laboratory Last Values WBC 15.0 10^3/uL (4.0 -10.0) H 04/14/20 03:15 Corrected WBC Cancelled 04/12/20 06:23 RBC 3.62 10^6/uL (4.1 -5.3) L 04/14/20 03:15 Hgb 10.5 g/dL (11.7-1 6.6) L 04/14/20 03:15 Hct 32.5 % (42.0-52.0 ) L 04/14/20 03:15 MCV 89.8 fL (80-94) 04/14/20 03:15 MCH 29.0 pg (28.0-34. 0) 04/14/20 03:15 MCHC 32.3 g/dL (30.0-3 6.0) 04/14/20 03:15 RDW 15.2 % (12.1-15.1 ) H 04/14/20 03:15 Plt Count 324 10^3/cmm (130 -400) 04/14/20 03:15 MPV 9.2 fL (7.4-10.4) 04/14/20 03:15 Gran % Cancelled 04/12/20 06:23 Neut % (Auto) 81.7 % 04/14/20 03:15 Lymph % (Auto) 7.9 % 04/14/20 03:15 [place] % (Auto) 8.0 % 04/14/20 03:15 Eos % (Auto) 1.5 % 04/14/20 03:15 Baso % (Auto) 0.4 % 04/14/20 03:15 Neut # (Auto) 12.25 10^3/uL (1. 8-7.7) H 04/14/20 03:15 Lymph # (Auto) 1.2 10^3/uL (0.8- 4.8) 04/14/20 03:15 [place] # (Auto) 1.2 10^3/uL (0.2- 0.9) H 04/14/20 03:15 Eos # (Auto) 0.2 10^3/uL (0.0- 0.8) 04/14/20 03:15 Baso # (Auto) 0.1 10^3/uL (0.0- 0.1) 04/14/20 03:15 Absolute Gran (aut o) Cancelled 04/12/20 06:23 Nucleated RBC % (a uto) 0 % 04/14/20 03:15 Nucleated RBCs # 0.0 /100WBC 04/14/20 03:15 PT 12.40 SECONDS (12 .1-14.9) 04/08/20 14:10 INR 0.90 (0.8-1.2) 04/08/20 14:10 D-Dimer 0.55 ug/mIFEU (0- 0.59) 04/08/20 14:10 Sodium 135 mmol/L (136-1 45) L 04/14/20 03:15 Potassium 5.0 mmol/L (3.5-5 .1) 04/14/20 03:15 Chloride 101 mmol/L (98-10 7) 04/14/20 03:15 Carbon Dioxide 22 mmol/L (22-29) 04/14/20 03:15 Anion Gap 17.0 (5-19) 04/14/20 03:15 BUN 58 mg/dL (6-20) H 04/14/20 03:15 Creatinine 2.3 mg/dL (0.7-1. 2) H 04/14/20 03:15 GFR Calculation 30.1 mL/min (90-1 30) L 04/14/20 03:15 Glucose 186 mg/dL (65-115 ) H 04/14/20 03:15 POC Glucose 164 mg/dL (70-110 ) 04/14/20 11:09 Calculated Osmolal ity 301 mOsm/kg (285- 295) H 04/14/20 03:15 Uric Acid 9.3 mg/dL (3.4-7. 0) H 04/12/20 06:23 Calcium 8.7 mg/dL (8.5-10 .5) 04/14/20 03:15 Phosphorus 4.2 mg/dL (2.5-4. 5) 04/13/20 05:57 Magnesium 1.8 mg/dL (1.7-2. 3) 04/13/20 05:57 Total Bilirubin 0.6 mg/dL (0.15-1 .2) 04/12/20 06:23 AST 18 U/L (0-40) 04/12/20 06:23 ALT 22 U/L (0-41) 04/12/20 06:23 Alkaline Phosphata se 138 IU/L (40-130) H 04/12/20 06:23 Creatine Kinase 61 U/L (39-308) 04/13/20 05:57 Troponin T Baselin e 39 ng/L (0-15) H 04/08/20 14:10 Troponin T 120 Min john 36.83 ng/L (0-15) H 04/08/20 16:30 Delta Troponin T -2.17 ABS# (0-10) L 04/08/20 16:30 Troponin T Hi Sens 6Hr 34.95 ng/L (0-15) H 04/08/20 20:03 Troponin T Hi Sens 6Hr Delta -4.05 ng/L (0-12) L 04/08/20 20:03 NT-Pro-B Natriuret Pep 333 pg/mL (0-125) H 04/08/20 14:10 Total Protein 5.7 g/dL (6.6-8.7 ) L 04/12/20 06:23 Albumin 3.4 g/dL (3.5-5.2 ) L 04/12/20 06:23 Globulin 2.3 g/dL (1.3-4.6 ) 04/12/20 06:23 Lipase 40 U/L (13-60) 04/08/20 14:10 Urine Color Yellow (Yellow) 04/11/20 18:00 Urine Appearance Clear (CLEAR) 04/11/20 18:00 Urine pH 5 (5-7) 04/11/20 18:00 Ur Specific Gravit y 1.020 (1.005-1.0 30) 04/11/20 18:00 Urine Protein Neg (Negative) 04/11/20 18:00 Urine Glucose (UA) Norm (Normal) 04/11/20 18:00 Urine Ketones Negative (Negati ve) 04/11/20 18:00 Urine Blood Neg (Negative) 04/11/20 18:00 Urine Nitrate Negative (Negati ve) 04/11/20 18:00 Urine Bilirubin Neg (Negative) 04/11/20 18:00 Urine Urobilinogen Norm mg/dL (Negat jaylen) 04/11/20 18:00 Ur Leukocyte Carmen ase Negative (Negati ve) 04/11/20 18:00 Ur Random Sodium 34 mmol/L 04/11/20 18:00 Urine Creatinine 83 mg/dL (39-259) 04/11/20 18:00 Urine Opiates Scre en Positive ng/mL (N egative) H 04/08/20 20:53 Ur Barbiturates Sc reen Negative ng/mL (N egative) 04/08/20 20:53 Ur Phencyclidine S crn Negative ng/mL (N egative) 04/08/20 20:53 Ur Amphetamines Sc reen Negative ng/mL (N egative) 04/08/20 20:53 U Benzodiazepines Scrn Negative ng/mL (N egative) 04/08/20 20:53 Urine Cocaine Scre en Negative ng/mL (N egative) 04/08/20 20:53 U Marijuana (THC) Screen Negative ng/mL (N egative) 04/08/20 20:53 Nasal/Oral COVID-1 9 PCR Negative 04/09/20 10:00 SARS-CoV-2 Ag (Rap id) Negative (Negati ve) 04/09/20 10:00 Laboratory Tests 04/08/20 04/10/20 04/11/20 14:10 03:52 04:12 Potassium 6.1 H 4.6 6.1 H 04/11/20 04/12/20 04/12/20 20:59 01:48 06:23 Potassium 6.9 H* 5.3 H 5.7 H 04/12/20 04/13/20 04/14/20 16:35 05:57 03:15 Potassium 6.1 H 5.6 H 5.0 Laboratory Tests 04/08/20 04/10/20 04/11/20 14:10 03:52 04:12 BUN 54 H 48 H Creatinine 2.1 H 2.5 H 04/12/20 04/12/20 04/14/20 01:48 16:35 03:15 BUN 66 H 69 H 58 H Creatinine 2.9 H 2.6 H 2.3 H Vitals: Last Vital Signs Temp 97.9 F 04/14/20 14:51 Pulse 78 04/14/20 14:51 Resp 19 H 04/14/20 14:51 BP 100/73 04/14/20 14:51 Pulse Ox 93 04/14/20 14:51 Discharge Plan Discharge Patient Disposition: Home Condition: Stable Prescriptions: New apixaban 5 mg tablet 5 mg PO Q12H Qty: 74 RF: 0 sodium bicarbonate 650 mg Tablet 650 mg PO TID Qty: 90 RF: 0 ranolazine 500 mg Tablet Extended Release 12 Hr 500 mg PO BID Qty: 60 RF: 0 prednisone 20 mg tablet 20 mg PO DAILY Qty: 5 RF: 0 Tylenol 8 Hour 650 mg tablet extended release 650 mg PO Q8H PRN (Reason: joint pains) Qty: 60 RF: 0 Continued isosorbide mononitrate 30 mg tablet extended release 24 hr 30 mg PO BID RF: 0 (DME) diabetic shoes Qty: 1 RF: 0 multivitamin [Daily Multi-Vitamin] Tablet 1 tab PO QAM RF: 0 methocarbamol 750 mg tablet 750 mg PO TID PRN (Reason: Muscle Spasm) RF: 0 levothyroxine 88 mcg capsule 88 mcg PO DAILY RF: 0 metoprolol tartrate 50 mg tablet 50 mg PO BID RF: 0 Trulicity 0.75 mg/0.5 mL pen injector 0.75 mg SUBCUT Q7D RF: 0 aspirin 81 mg tablet,delayed release (DR/EC) 81 mg PO DAILY RF: 0 (DME) CAM WALKER See Rx Instructions .Route .MEDSUPPLY Qty: 1 RF: 0 (DME) Elizabeth See Rx Instructions .Route .MEDSUPPLY Qty: 1 RF: 0 nitroglycerin [Nitrostat] 0.4 mg tablet, sublingual 0.4 mg SUBLINGUAL Q5M PRN (Reason: Chest Pain) Qty: 30 RF: 2 clopidogrel 75 mg tablet 75 mg PO DAILY Qty: 90 RF: 3 atorvastatin 40 mg tablet 40 mg PO DAILY Qty: 30 RF: 5 omeprazole 20 mg capsule,delayed release(DR/EC) 20 mg PO DAILY 28 Days Qty: 30 RF: 0 nitroglycerin 0.4 mg/hr patch 24 hour 1 patch TRANSDERMA DAILY Qty: 30 RF: 0 cyclobenzaprine 10 mg tablet 10 mg PO TID PRN (Reason: MUSCLE SPASMS) RF: 0 promethazine 25 mg tablet 25 mg PO TID PRN (Reason: nausea and vomiting) Qty: 20 RF: 0 citalopram 20 mg Tablet 20 mg PO DAILY RF: 0 amlodipine 10 mg tablet 10 mg PO DAILY RF: 0 insulin lispro 100 unit/mL Insulin Pen See Rx Instructions .ROUTE .COMPLEX RF: 0 Held metformin 500 mg tablet 500 mg PO BID RF: 0 Hold Instructions: hold until instructed to resume, ask at follow up, held due to acute kidney injury furosemide [Lasix] 40 mg tablet 40 mg PO QAM RF: 0 Hold Instructions: hold until instructed to resume, ask at follow up, held due to acute kidney injury lisinopril 10 mg Tablet 10 mg PO DAILY RF: 0 Hold Instructions: hold until instructed to resume, ask at follow up, held due to acute kidney injury Discharge Orders: Discharge Order (Routine); Ordered 04/14/20 Ordered By: Carolina Durant Other Ambulatory Orders: Basic Metabolic Panel (Routine) Timeframe: 20200418 Location: Determined by Patient Ordered By: Carolina Durant Complete Blood Count w/Auto (Routine) Timeframe: 20200418 Location: Determined by Patient Ordered By: Carolina Durant Phosphorus (Routine) Timeframe: 20200418 Facility: [facility] - Location: Lab - Main Lab Ordered By: Carolina Durant Uric Acid (Routine) Timeframe: 20200418 Facility: [facility] - Location: Lab - Main Lab Ordered By: Carolina Durant Referrals: Antolin Weiss MD [Referring] - 2 weeks (JESUS vs progressive kidney disease, hyperkalemia, off usual lasix and maciej inhibitor presently) Cuco Patterson DPM [Physician] - 06/14/20 8:00 am (You will have an appointment with Dr. Patterson at the [facility] clinic on June 14, 2020 at 8:00 am to address your gout symptoms. If you have any questions, please call [phone].) Tory Lopez MD [Physician] - 04/19/20 8:45 am (You will have an appointment with Dr. Lopez at [facility] on April 19, 2020 at 8:45 am. If you have any questions, please call [phone]) Kp Montanez DO [Primary Care Provider] - 4-7 days (hospital follow up, recheck BMP and volume status, decide about whether to resume lasix, maciej inhibitor, metformin. BUN/CR at DC 30/2.3) Patient Instructions: Acetaminophen (By mouth), Prednisone (By mouth), Ranolazine (By mouth), Sodium Bicarbonate (By mouth), Apixaban (By mouth) Activity Restrictions/Additional Instructions: You came with recurrent chest pain at rest that was severe. You were also noted to have low blood pressure, high potassium level and worsening of your kidneys function. Blood sugars were in the 300s. Serial heart enzymes did not show significant elevation. Given your known history of angina, cardiology was consulted. They recommended medical management with optimization of antianginal medications and consideration of anticoagulation. No significant EKG changes suggestive of acute ischemia were noted. Ultimately decision was made, and consultation with you, to restart Ranexa. You have tolerated this thus far with improvement in your baseline chest pain to no more than a 2-3, even with exertion. You continue to be on isosorbide tablets and Nitropatch, which is taken off at night. Be careful taking too much nitroglycerin sublingually as this could lead to further drop in blood pressure. Arrangements have been made for you to follow-up with Dr. Lopez next week. In terms of your renal function, your baseline creatinine looks to be around 1.6 or so. On arrival here creatinine was 2.1 and values peaked at 69/2.9. On the day of discharge BUN/creatinine are at 58/2.3. Potassium was 6.1 on presentation and as high as 6.9. You continued to have persistent hyperkalemia. Ultimately Lasix and lisinopril were stopped. On the day of discharge potassium was at 5.0. You should follow a low potassium diet and take sodium bicarbonate as prescribed by the kidney doctor here. You will need to follow-up with Dr. Weiss soon. Your kidney function may have progressively worsened or be secondary to low blood pressures on arrival combined with continuation of diuretics and MACIEJ inhibitor.. You develop some pain in your right foot at the ankle during her hospital stay. Uric acid was at 9.3. Gout was suspected but with hydration and other management you did have improvement. Short course of steroids was offered to help with the pain but declined due to elevated blood sugars as we discussed. I wrote a prescription for short course of prednisone 20 mg daily should you have recurrent foot pain or great toe pain. Do not take your Lasix, lisinopril or Metformin unless directed to by doctor who is aware of your recent medical history. All of these are held due to worsening kidney function. New medications include Ranexa for angina. If this continues to help we will pro bably need to try to back off on some of your other nitrates. Keep appointment with Dr. Lopez. Your Port-A-Cath was not drawing blood. Cathflo was inserted several times initially without success. An ultrasound was done and based on the results decision was made to put you back on Eliquis. A 1 month prescription has been provided. Upon follow-up with other care providers discussed continuation with them. You have been on this before. You are at increased risk of bleeding with this. Do not take [id number] pain medications except for Tylenol. Be careful with position changes Bring medications to your doctors appointments Take this handout from hospital stay to your doctor's appointments, especially those that are not affiliated with [facility] Discharge Attestations Time Spent in Discharge Care*: greater than 30 min Specific Discharge Activities: educating patient, educating and/or supporting family/caregiver, discussing with correctional casework specialist/social workers/dc planners, documenting/other paperwork and evaluating patient/reviewing data Status at Discharge: Cognitive status at discharge: cognitively intact , Behavioral status at discharge: cooperative and independent in ADL's , Functional status at discharge: independent ambulation Overall status at discharge: patient is not back to baseline Quality Metrics Clinical Quality Measures During this hospital stay, did patient experience: VTE Contraindication to Overlap Therapy: Overlap treatment not indicated VTE Discharge Education: Education about anticoagulant therapy/Care Notes given (patient/ familiar with medication as previously on), Education about treatment options/disease process, Medication side effects education and Follow-up arranged Deep Vein Thrombosis/Pulmonary Embolism Present on Admission: Yes Coding Level of Care Code Acute Excel [employer] Developer for [facility] Diagnoses Angina at rest I20.8 JESUS (acute kidney injury) N17.9 Hyperkalemia E87.5 DVT (deep venous thrombosis) I82.622 DVT location: upper extremity Affected thrombotic vein of extremity: other upper extremity vein Chronicity: acute Laterality: left Gout M10.371 Gout site: ankle Gout etiology: due to renal impairment Chronicity: acute Laterality: right 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 Chronic kidney disease N18.32 Chronic kidney disease stage: stage 3 (moderate) Chronic kidney disease stage 3 subtype: stage 3b (GFR 30-44) Diabetes E11.21; N18.32; Z79.4 Diabetes mellitus type: type 2 Diabetes mellitus [facility] insulin use: with terminal operations manager use Diabetes mellitus complication status: with kidney complications Diabetes mellitus complication detail: with chronic kidney disease Chronic kidney disease stage: stage 3 (moderate) Chronic kidney disease stage 3 subtype: stage 3b (GFR 30-44) Chronic systolic heart failure I50.22 Anemia N18.32; D63.1 Anemia type: due to chronic kidney disease Chronic kidney disease stage: stage 3 (moderate) Chronic kidney disease stage 3 subtype: stage 3b (GFR 30-44)
--- NOTE | 2020-04-14 15:14 | P.PN_ITS ---
Subjective Subjective: Interval history: I am seeing him in follow up for his renal failure. No nausea or vomiting Medications: Reviewed: Yes Vitals/I&O/Wt Last Vital Signs Temp 97.9 F 04/14/20 14:51 Pulse 78 04/14/20 14:51 Resp 19 H 04/14/20 14:51 BP 100/73 04/14/20 14:51 Pulse Ox 93 04/14/20 14:51 04/14/20 04/14/20 04/14/20 06:59 14:59 22:59 Intake Total 240 / 1560 1240 / 1240 Output Total 500 / 900 475 / 475 Balance -260 / 660 765 / 765 Physical Exam Const: COMMON NORMALS: no acute distress, patient oriented x3 and alert GENERAL APPEARANCE: cooperative ORIENTATION/CONSCIOUSNESS: Yes awake Resp: COMMON NORMALS: clear to auscultation bilaterally AUSCULTATION: clear to auscultation bilaterally Cardio: COMMON NORMALS: S1 normal heart sound present and S2 normal heart sound present HEART SOUNDS: S1 normal heart sound present and S2 normal heart sound present GI: AUSCULTATION: Yes normoactive bowel sounds Extremity: GENERAL: Yes edema Neuro: COMMON NORMALS: patient oriented x3 SENSORIUM/ORIENTATION: Yes alert Skin: COMMON NORMALS: no rashes or lesions noted GENERAL SKIN EXAM: no rashes or lesions noted Data : 04/14/20 03:15 04/14/20 03:15 A&P Additional A&P Information 1. Acute on CKD : Kidney function is stable, ok to discharge pt. Need to f/u with local incident response analyst in 1-2 wks 2. HTN : BP under control 3. Anemia : Hb is stable 4. Metabolic acidosis : Cont sodium bicarbonate supplements Attestations Medical Necessity Statement*: Renal failure Coding Level of Care Code Acute Supervisor Electrolytic Tinning for Chg Fwd Exam Detailed
== END 2020-04-14 15:10 | disposition home or self-care (01) | DRG 303 ==
LOC: ER 14:13 → CSU 20:06
PROVIDERS: Internal Medicine; Student in an Organized Health Care Education/Training Program; Admitting Provider Internal Medicine; Emergency Provider Emergency Medicine; PCP Internal Medicine; Visit Provider Hospitalist
DX: I25.110 Atherosclerotic heart disease of native coronary artery with unstable angina pectoris (principal); I13.0 Hypertensive heart and chronic kidney disease with heart failure and stage 1 through stage 4 chronic kidney disease, or unspecified chronic kidney disease; I50.22 Chronic systolic (congestive) heart failure; N18.4 Chronic kidney disease, stage 4 (severe); N17.9 Acute kidney failure, unspecified; E87.2 Acidosis; I82.622 Acute embolism and thrombosis of deep veins of left upper extremity; T82.594A Other mechanical complication of infusion catheter, initial encounter; Z95.5 Presence of coronary angioplasty implant and graft; E11.22 Type 2 diabetes mellitus with diabetic chronic kidney disease; I95.9 Hypotension, unspecified; E87.5 Hyperkalemia; D63.1 Anemia in chronic kidney disease; I25.5 Ischemic cardiomyopathy; F32.9 Major depressive disorder, single episode, unspecified; E66.9 Obesity, unspecified; Z68.37 Body mass index [BMI] 37.0-37.9, adult; M47.9 Spondylosis, unspecified; Z90.79 Acquired absence of other genital organ(s); M10.371 Gout due to renal impairment, right ankle and foot; Y82.9 Unspecified medical devices associated with adverse incidents
CPT/HCPCS: 12345; 36415; 36416; 36591; 51798; 71045; 74230; 80048; 80053; 80306; 81003; 82550; 82575; 82962; 83690; 83735; 83880; 84100; 84300; 84484; 84550; 85025; 85378; 85610; 87426; 87635; 92526; 92611; 93005; 93971; 96372; 96375; 99283; G0378; J0610; J1642; J1644; J1815; J1940; J2270; J2550; J7030; Q0169; Q3014

== ENCOUNTER 2020-04-18 10:55 | Outpatient (CLI) | payer MEDICARE, MEDICAID, SELFPAY ==
[2020-04-18 11:26] VITALS: BMI 35.2
[2020-04-18 11:41] VITALS: BP 147/96; PULSE 103; RESP 18; TEMP 36.4; O2SAT 97
--- NOTE | 2020-04-18 12:45 | PC.NURSE ---
PORT ACCESSED AND BLOOD DRAWN FOR LABS ORDERED. FLUSHED WITHOUT DIFFICULTY
[2020-04-18 13:11] LABS: Anion Gap 18.4 (5-19); Blood Urea Nitrogen 19 mg/dL (6-20); Calcium 8.9 mg/dL (8.5-10.5); Carbon Dioxide 22 mmol/L (22-29); Chloride 103 mmol/L (98-107); Glomerular Filtration Rate 49.3 mL/min (90-130); Glucose 163 mg/dL (65-115); Osmolality Calculated 294 mOsm/kg (285-295); Phosphorus 3.1 mg/dL (2.5-4.5); Potassium 4.4 mmol/L (3.5-5.1); Sodium 139 mmol/L (136-145); Uric Acid 8.6 mg/dL (3.4-7.0)
[2020-04-18 22:37] LABS: Basophils # 0.1 10^3/uL (0.0-0.1); Basophils % 0.6 %; Eosinophils # 0.1 10^3/uL (0.0-0.8); Eosinophils % 1.5 %; Hematocrit 33.4 % (42.0-52.0); Hemoglobin 10.7 g/dL (11.7-16.6); Lymphocytes # 1.7 10^3/uL (0.8-4.8); Lymphocytes % 20.8 %; Mean Corpuscular Hemoglobin 28.9 pg (28.0-34.0); Mean Corpuscular Volume 90.3 fL (80-94); Mean Platelet Volume 9.9 fL (7.4-10.4); Monocytes # 0.6 10^3/uL (0.2-0.9); Monocytes % 7.4 %; Neutrophils # 5.68 10^3/uL (1.8-7.7); Neutrophils % 69.6 %; Nucleated Red Blood Cells % 0 %; Platelet Count 345 10^3/cmm (130-400); Red Cell Distribution Width 15.3 % (12.1-15.1); White Blood Count 8.2 10^3/uL (4.0-10.0)
== END 2020-04-18 10:56 | disposition home or self-care (01) ==
PROVIDERS: PCP Internal Medicine; Visit Provider Hospitalist
DX: D63.1 Anemia in chronic kidney disease (principal); N18.9 Chronic kidney disease, unspecified
CPT/HCPCS: 36592; 80048; 84100; 84550; 85025

== ENCOUNTER 2020-05-10 11:01 | Outpatient (CLI) | payer MEDICARE, MEDICAID, SELFPAY ==
--- NOTE | 2020-05-10 17:30 | MR_ITS ---
WS: [id number] MRI LEFT KNEE HISTORY: M25.562 - Pain in left knee COMPARISON: None available. Anterior cruciate ligament: Intact. Posterior cruciate ligament: Intact. Medial collateral ligament: Intact. Posterior lateral corner structures: Intact. Medial menisci: Mild intrasubstance degeneration in the posterior horn. No tear. Lateral meniscus: Intact. Normal signal, size and shape. Extensor mechanism: Distal quadriceps tendon and patellar tendons are intact. Fluid and soft tissue: Very small suprapatellar joint effusion. No Buitrago's cyst. There is a small mandy unt of subcutaneous edema surrounding the knee. No Buitrago's cyst. Osseous and articular structures: Patellofemoral compartment: Normal joint space without loss of cartilage. There is increased T2 signa l within the patella. Small amount of marrow edema is present but no fracture. Medial compartment: No marrow edema or significant joint space narrowing. Cartilage is intact. Lateral compartment: No significant joint space narrowing. Cartilage is intact. No edema. MR/MR knee LT wo con* [id number] IMPRESSION: 1. Small amount of marrow edema in the patella with no fracture. 2. Small joint effusion. 3. No meniscal or ACL tear. 4. Soft tissue edema anterior to the patella but no bursal distention.
== END 2020-05-10 11:02 | disposition home or self-care (01) ==
LOC: RADSHAW 11:03
PROVIDERS: PCP Internal Medicine; Visit Provider Orthopaedic Surgery
DX: M25.562 Pain in left knee (principal); R60.0 Localized edema; M25.462 Effusion, left knee
CPT/HCPCS: 73721

== ENCOUNTER 2020-05-18 06:00 | Outpatient (RCR) | payer MEDICARE, MEDICAID, SELFPAY | END 2020-05-19 23:59 | disposition home or self-care (01) | LOC: SPT 06:00 | PROVIDERS: PCP Internal Medicine; Referring Provider Orthopaedic Surgery; Visit Provider Orthopaedic Surgery | DX: M25.562 Pain in left knee (principal) | CPT/HCPCS: 97162 ==

== ENCOUNTER → 2020-05-18 09:14 | Day surgery (SDC) | payer MEDICARE, MEDICAID, SELFPAY ==
[2020-05-18 09:52] VITALS: BP 124/87; PULSE 87; RESP 18; TEMP 36.4; O2SAT 98
[2020-05-18 10:09] LABS: Albumin Level 3.9 g/dL (3.5-5.2); Anion Gap 16.5 (5-19); Blood Urea Nitrogen 66 mg/dL (6-20); Calcium 8.8 mg/dL (8.5-10.5); Carbon Dioxide 20 mmol/L (22-29); Chloride 104 mmol/L (98-107); Glucose 159 mg/dL (65-115); Phosphorus 3.9 mg/dL (2.5-4.5); Potassium 5.5 mmol/L (3.5-5.1); Sodium 135 mmol/L (136-145)
[2020-05-18 11:32] LABS: Urine Creatinine 71 mg/dL (39-259)
[2020-05-18 11:35] LABS: UPRO/UCREAT Ratio 0.52 mg/mg CR; Urine Protein Random 37 mg/dL
[2020-05-18 14:37] LABS: Estmated Average Glucose 183
== END ==
PROVIDERS: PCP Internal Medicine; Visit Provider Internal Medicine Nephrology
DX: N18.30 Chronic kidney disease, stage 3 unspecified (principal); E11.9 Type 2 diabetes mellitus without complications
CPT/HCPCS: 36591; 80069; 82570; 83036; 84156

== ENCOUNTER 2020-05-20 06:00 | Outpatient (RCR) | payer MEDICARE, MEDICAID, SELFPAY | END 2020-06-19 23:59 | disposition home or self-care (01) | LOC: SPT 06:00 | PROVIDERS: PCP Internal Medicine; Referring Provider Orthopaedic Surgery; Visit Provider Orthopaedic Surgery | DX: M25.562 Pain in left knee (principal) | CPT/HCPCS: 97110 ==

== ENCOUNTER → 2020-05-23 10:05 | Day surgery (SDC) | payer MEDICARE, MEDICAID, SELFPAY ==
[2020-05-23 10:32] VITALS: BP 130/81; PULSE 81; RESP 18; TEMP 36.7; O2SAT 99
--- NOTE | 2020-05-23 11:05 | SUR.OPER ---
1032 Pt to OPS for lab draw per Dr. Weiss, nephrology, request. Port to left chest accessed using sterile technique. BMP drawn and sent to lab. Results to be faxed to Dr. Weiss's office and Dr. Montanez per pt request. Port flushed per facility protocol following lab draw. Pt tolerated well. Site clear without bleeding.
[2020-05-23 11:28] LABS: Anion Gap 15.2 (5-19); Blood Urea Nitrogen 39 mg/dL (6-20); Calcium 8.6 mg/dL (8.5-10.5); Carbon Dioxide 18 mmol/L (22-29); Chloride 113 mmol/L (98-107); Glomerular Filtration Rate 42.5 mL/min (90-130); Glucose 138 mg/dL (65-115); Osmolality Calculated 304 mOsm/kg (285-295); Potassium 5.2 mmol/L (3.5-5.1); Sodium 141 mmol/L (136-145)
== END ==
PROVIDERS: PCP Internal Medicine; Visit Provider Internal Medicine Nephrology
DX: E11.22 Type 2 diabetes mellitus with diabetic chronic kidney disease (principal); N18.30 Chronic kidney disease, stage 3 unspecified
CPT/HCPCS: 36591; 80048

== ENCOUNTER → 2020-06-04 13:23 | Outpatient (BNVA) | payer MEDICARE, MEDICAID, SELFPAY | PROVIDERS: PCP Internal Medicine; Visit Provider Nurse Practitioner | DX: E11.9 Type 2 diabetes mellitus without complications (principal); M10.9 Gout, unspecified; G89.29 Other chronic pain; N18.9 Chronic kidney disease, unspecified; M25.562 Pain in left knee; I50.22 Chronic systolic (congestive) heart failure; Z79.899 Other long term (current) drug therapy | CPT/HCPCS: 84550 ==

== ENCOUNTER 2020-06-20 06:00 | Outpatient (RCR) | payer MEDICARE, MEDICAID, SELFPAY | END 2020-07-17 23:59 | disposition home or self-care (01) | LOC: SPT 06:00 | PROVIDERS: PCP Internal Medicine; Referring Provider Orthopaedic Surgery; Visit Provider Orthopaedic Surgery | DX: M25.562 Pain in left knee (principal) | CPT/HCPCS: 97110; 97112; 97116 ==

== ENCOUNTER 2020-06-28 20:00 | Outpatient (CLI) | payer MEDICARE, MEDICAID, SELFPAY | END 2020-06-28 20:01 | disposition home or self-care (01) | LOC: SLEEP 06-29 09:45 | PROVIDERS: PCP Internal Medicine; Visit Provider Internal Medicine | DX: G47.10 Hypersomnia, unspecified (principal); G47.33 Obstructive sleep apnea (adult) (pediatric) | CPT/HCPCS: 95810 ==

== ENCOUNTER → 2020-07-08 11:20 | Day surgery (SDC) | payer MEDICARE, MEDICAID, SELFPAY ==
[2020-07-08 12:30] VITALS: BP 142/72; PULSE 105; RESP 18; TEMP 36.3; O2SAT 95
== END ==
PROVIDERS: PCP Internal Medicine; Referring Provider Internal Medicine Nephrology; Visit Provider Internal Medicine
DX: Z45.2 Encounter for adjustment and management of vascular access device (principal)
CPT/HCPCS: 96368; 96523

== ENCOUNTER 2020-07-18 06:00 | Outpatient (RCR) | payer MEDICARE, MEDICAID, SELFPAY | END 2020-08-17 23:59 | disposition home or self-care (01) | LOC: SPT 06:00 | PROVIDERS: PCP Internal Medicine; Referring Provider Orthopaedic Surgery; Visit Provider Orthopaedic Surgery | DX: M25.562 Pain in left knee (principal) | CPT/HCPCS: 97110 ==

== ENCOUNTER 2020-07-26 20:00 | Outpatient (CLI) | payer MEDICARE, MEDICAID, SELFPAY | END 2020-07-26 20:01 | disposition home or self-care (01) | LOC: SLEEP 07-27 08:43 | PROVIDERS: PCP Internal Medicine; Visit Provider Internal Medicine | DX: G47.33 Obstructive sleep apnea (adult) (pediatric) (principal) | CPT/HCPCS: 95811 ==

== ENCOUNTER 2020-07-30 09:20 | Emergency (ER) | payer MEDICARE, MEDICAID, SELFPAY ==
[2020-07-30 09:51] VITALS: BP 133/66; PULSE 82; RESP 16; TEMP 37.1; O2SAT 97; BMI 39.2
--- NOTE | 2020-07-30 09:54 | XRR_ITS ---
PROCEDURE INFORMATION: Exam: XR Chest Exam date and time: 07/30/2020 9:56 AM Age: 50 years old Clinical indication: Cough and dyspnea; Additional info: Dyspnea/cough TECHNIQUE: Imaging protocol: XR of the chest Views: 1 view. COMPARISON: CR XR chest 1V portable [id number] 04/08/2020 1:39 PM FINDINGS: Lungs: There is mild fibrosis in the left base. No pneumonia is seen. Pleural spaces: Unremarkable. No pleural effusion. No pneumothorax. Heart/Mediastinum: The patient has undergone mid sternotomy for cardiovascular surgery. The cardiac silhouette is normal for the AP projection. Vasculature: A MediPort catheter is present in satisfactory position with tip projecting in the SVC.. Bones/joints: Unremarkable. XR/XR chest 1V portable [id number] IMPRESSION: No acute cardiopulmonary abnormality.
--- NOTE | 2020-07-30 10:05 | ED_ITS ---
HPI - Abdominal Pain General: Chief Complaint: Abdominal Pain Stated Complaint: BACK/AB PAIN, ABNORMAL WEIGHT GAIN Time Seen by Provider: 07/30/20 09:49 History of Present Illness: HPI narrative: 50-year-old male presents to the emergency room with complaint of right lower quadrant abdominal pain. Patient has chronic kidney disease and decreased urinary output denies any dysuria urgency or frequency not had any hematuria. States he has gained about 19 reny nds over the last few weeks. Increasing shortness of breath. Patient has a history of coronary disease but he has had extensive recent work-up occluding stress testing and angiogram he does get some occasional pain that is still intermittent in his chest but nothing that is changed significantly recently. MD elicited complaint: abdominal pain Onset (ago): hour(s) Pain Consistency: constant Location: RLQ Severity: moderate Quality: cramping Radiation: none Migration to: no migration Exacerbating factors: nothing Relieving factors: nothing Associated Symptoms: Reports bloating, nausea and poor appetite; Denies anorexia, belching, change in bowel habits, change in stool character, chills, coffee ground emesis, constipation, GI cramping, diarrhea, dyspepsia, dysuria, excessive flatus, fever(s), heartburn, hematochezia, hematuria, bigg temesis, fecal incontinence, loose stools, melena, syncope and vomiting Review of Systems Const: Denies: fever(s) or chills ENMT: Denies: throat pain, ear or mastoid pain, nasal discharge or nasal congestion Card: Denies: syncope Resp: Denies: dyspnea, productive cough or non-productive cough GI: Reports: nausea and bloating; Denies: vomiting, hematemesis, coffee ground emesis, heartburn, diarrhea, constipation, GI cramping, belching, excessive flatus, fecal incontinence, change in bowel habits, change in stool character, hematochezia or melena : Denies: dysuria or hematuria Skin/Breast: Denies: rash or pruritus PFSH ED PFSH: Medical History Anemia Atherosclerotic heart disease of [place] coronary artery with other forms of angina pectoris hx of CAD with prior stenting of proximal LAD, LCx, RCA Chronic kidney disease -baseline Cr appears to be around 1.5 Chronic systolic heart failure EF=47%, diffuse LV hypokinesis, mildly increased LA size Depression Diabetes A1c-7.6 (08/2019) Foot drop, left H/O acute myocardial infarction H/O deep venous thrombosis developed compartment syndrome Hyperlipidemia Hypertension Hypothyroidism Ischemic cardiomyopathy Obesity (BMI 30-39.9) Osteoarthritis of spine Surgical History H/O colonoscopy 08/2015 H/O esophagogastroduodenoscopy 08/2015 H/O removal of testicle left H/O skin graft H/O vasectomy History of appendectomy History of coronary artery stent placement 5x History of excision of mass 06/08/2019: Subcutaneous mass on back History of inguinal hernia repair, bilateral 2000 History of removal of Port-a-Cath Hx of cholecystectomy Port-A-Cath in place Family History Grandfather Cancer skin cancer Parkinson disease Brother Hypertension Father Heart disease Mother Hypertension Stroke Aneurysm Grandmother Aneurysm Other Crohn disease Denies family history of Anesthesia complication Bleeding disorder Social History Smoking and tobacco status: never smoked Alcohol intake: former Former alcohol use details: Only holidays Lives independently: Yes Household members: significant other Marital status: Single Current occupational status: disabled History of recent travel: No Physical Exam Const: COMMON NORMALS: no acute distress GENERAL APPEARANCE: cooperative and comfortable ORIENTATION/CONSCIOUSNESS: Yes awake, Yes oriented to person, Yes oriented to place and Yes oriented to time HENMT: COMMON NORMALS: normocephalic, atraumatic, hearing grossly normal bilaterally, external ears normal, EAC's normal, TM's normal bilaterally, Normal nasal mucous membranes and turbinates present, moist oral mucous membranes and oropharynx normal HEAD & SCALP: normocephalic and atraumatic NOSE: Normal nasal mucous membranes and turbinates present EXTERNAL EAR: Yes external ears normal EXTERNAL AUDITORY CANAL: EAC's normal TYMPANIC MEMBRANE: TM's n ormal bilaterally Eye: COMMON NORMALS: Equal, round and reactive pupils present, EOMs intact bilaterally, conjunctivae normal and no scleral icterus CONJUNCTIVA: Yes conjunctivae normal PUPIL: Yes Equal, round and reactive pupils present Neck/C-Spine: COMMON NORMALS: full ROM, no lymphadenopathy, supple and no JVD Lymph: LYMPHATIC: no lymphadenopathy noted and no lymphedema noted Resp: COMMON NORMALS: normal respiratory effort, No retractions, No use of accessory muscles and clear to auscultation bilaterally AUSCULTATION: clear to auscultation bilaterally Cardio: COMMON NORMALS: no JVD, regular rate, regular rhythm and No murmurs present (Cardio) RATE: regular rate RHYTHM: regular rhythm GI: COMMON NORMALS: Soft to palpation and No hepatosplenomegaly present AUSCULTATION: Yes normoactive bowel sounds PALPATION: Yes Soft to palpation, No Tenderness to palpation present (GI), No Guarding due to palpation present (GI) and Yes No hepatosplenomegaly present Extremity: COMMON NORMALS: normal to inspection, capillary refill normal, no clubbing, cyanosis or edema, no calf tenderness and no pedal edema Neuro: SENSORIUM/ORIENTATION: Yes oriented to person, Yes oriented to place and Yes oriented to time Skin: COMMON NORMALS: no rashes or lesions noted GENERAL SKIN EXAM: no rashes or lesions noted Course Vital Signs: Vital signs: Vital Signs Temperature 98.7 F 07/30/20 09:51 Pulse Rate 76 07/30/20 12:44 Respiratory Rate 21 H 07/30/20 12:44 Blood Pressure 133/66 07/30/20 12:44 Pulse Oximetry 95 07/30/20 12:44 MDM - Abdominal Pain MDM Narrative: Medical decision making narrative: Reviewed findings with the patient. He is feeling somewhat better will start him on a proton pump inhibitor clear liquid diet for 24 to 48 hours advance as needed return if has problems Lab Data: Labs: Lab Results 07/30/20 07/30/20 07/30/20 Range/Units 10:16 10:16 10:16 WBC 7.5 (4.0-10.0) 10^3/ uL RBC 3.61 L (4.1-5.3) 10^6/u L Hgb 10.4 L (11.7-16.6) g/dL Hct 31.8 L (42.0-52.0) % MCV 88.1 (80-94) fL MCH 28.8 (28.0-34.0) pg MCHC 32.7 (30.0-36.0) g/dL RDW 13.5 (12.1-15.1) % Plt Count 286 (130-400) 10^3/c mm MPV 9.5 (7.4-10.4) fL Neut % (Auto) 64.7 % Lymph % (Auto) 21.6 % [place] % (Auto) 9.0 % Eos % (Auto) 3.5 % Baso % (Auto) 0.9 % Neut # (Auto) 4.84 (1.8-7.7) 10^3/u L Lymph # (Auto) 1.6 (0.8-4.8) 10^3/u L [place] # (Auto) 0.7 (0.2-0.9) 10^3/u L Eos # (Auto) 0.3 (0.0-0.8) 10^3/u L Baso # (Auto) 0.1 (0.0-0.1) 10^3/u L Nucleated RBC % (a uto) 0 % Nucleated RBCs # 0.0 /100WBC Sodium 133 L (136-145) mmol/L Potassium 3.8 (3.5-5.1) mmol/L Chloride 100 (98-107) mmol/L Carbon Dioxide 23 (22-29) mmol/L Anion Gap 13.8 (5-19) BUN 33 H (6-20) mg/dL Creatinine 2.1 H (0.7-1.2) mg/dL GFR Calculation 33.3 L (90-130) mL/min Glucose 203 H (65-115) mg/dL Calculated Osmolal ity 289 (285-295) mOsm/k g Lactic Acid 1.6 (0.5-2.2) mmol/L Calcium 7.7 L (8.5-10.5) mg/dL Total Bilirubin 0.5 (0.15-1.2) mg/dL AST 16 (0-40) U/L ALT 20 (0-41) U/L Alkaline Phosphata se 129 (40-130) IU/L Total Protein 5.7 L (6.6-8.7) g/dL Albumin 3.3 L (3.5-5.2) g/dL Globulin 2.4 (1.3-4.6) g/dL Urine Color (Yellow) Urine Appearance (CLEAR) Urine pH (5-7) Ur Specific Gravit y (1.005-1.030) Urine Protein (Negative) Urine Glucose (UA) (Normal) Urine Ketones (Negative) Urine Blood (Negative) Urine Nitrate (Negative) Urine Bilirubin (Negative) Urine Urobilinogen (Negative) mg/dL Ur Leukocyte Carmen ase (Negative) Urine RBC (0-2) /hpf Urine WBC (0-5) /hpf Ur Squamous Epith Cells (0-5) /hpf Amorphous Sediment Urine Bacteria (NONE) /hpf Urine Mucus /hpf 07/30/20 Range/Units 11:00 WBC (4.0-10.0) 10^3/ uL RBC (4.1-5.3) 10^6/u L Hgb (11.7-16.6) g/dL Hct (42.0-52.0) % MCV (80-94) fL MCH (28.0-34.0) pg MCHC (30.0-36.0) g/dL RDW (12.1-15.1) % Plt Count (130-400) 10^3/c mm MPV (7.4-10.4) fL Neut % (Auto) % Lymph % (Auto) % [place] % (Auto) % Eos % (Auto) % Baso % (Auto) % Neut # (Auto) (1.8-7.7) 10^3/u L Lymph # (Auto) (0.8-4.8) 10^3/u L [place] # (Auto) (0.2-0.9) 10^3/u L Eos # (Auto) (0.0-0.8) 10^3/u L Baso # (Auto) (0.0-0.1) 10^3/u L Nucleated RBC % (a uto) % Nucleated RBCs # /100WBC Sodium (136-145) mmol/L Potassium (3.5-5.1) mmol/L Chloride (98-107) mmol/L Carbon Dioxide (22-29) mmol/L Anion Gap (5-19) BUN (6-20) mg/dL Creatinine (0.7-1.2) mg/dL GFR Calculation (90-130) mL/min Glucose (65-115) mg/dL Calculated Osmolal ity (285-295) mOsm/k g Lactic Acid (0.5-2.2) mmol/L Calcium (8.5-10.5) mg/dL Total Bilirubin (0.15-1.2) mg/dL AST (0-40) U/L ALT (0-41) U/L Alkaline Phosphata se (40-130) IU/L Total Protein (6.6-8.7) g/dL Albumin (3.5-5.2) g/dL Globulin (1.3-4.6) g/dL Urine Color Straw (Yellow) Urine Appearance Clear (CLEAR) Urine pH 5 (5-7) Ur Specific Gravit y 1.010 (1.005-1.030) Urine Protein 2+ H (Negative) Urine Glucose (UA) 2+ (Normal) Urine Ketones Negative (Negative) Urine Blood Neg (Negative) Urine Nitrate Negative (Negative) Urine Bilirubin Neg (Negative) Urine Urobilinogen Norm (Negative) mg/dL Ur Leukocyte Carmen ase Negative (Negative) Urine RBC None (0-2) /hpf Urine WBC None (0-5) /hpf Ur Squamous Epith Cells None (0-5) /hpf Amorphous Sediment Not Reportable Urine Bacteria Trace (NONE) /hpf Urine Mucus Trace /hpf Discharge Plan Discharge Patient Disposition: Home Clinical Impression: Dyspepsia, Anemia, Diabetes, Abdominal pain, Chronic kidney disease (CKD) Condition: Stable Prescriptions: New pantoprazole 40 mg tablet,delayed release (DR/EC) 40 mg PO DAILY 56 Days Qty: 60 RF: 0 No Action apixaban 5 mg tablet 5 mg PO Q12H Qty: 60 RF: 3 (DME) diabetic shoes Qty: 1 RF: 0 multivitamin [Daily Multi-Vitamin] Tablet 1 tab PO QAM RF: 0 levothyroxine 88 mcg capsule 88 mcg PO DAILY RF: 0 metoprolol tartrate 50 mg tablet 50 mg PO BID RF: 0 metformin 500 mg tablet 500 mg PO BID RF: 0 Hold Instructions: hold until instructed to resume, ask at follow up, held due to acute kidney injury Trulicity 0.75 mg/0.5 mL pen injector 0.75 mg SUBCUT Q7D RF: 0 furosemide [Lasix] 40 mg tablet 40 mg PO QAM RF: 0 Hold Instructions: hold until instructed to resume, ask at follow up, held due to acute kidney injury aspirin 81 mg tablet,delayed release (DR/EC) 81 mg PO DAILY RF: 0 (DME) CAM ELÍAS See Rx Instructions .Route .MEDSUPPLY Qty: 1 RF: 0 (DME) Elizabeth See Rx Instructions .Route .MEDSUPPLY Qty: 1 RF: 0 nitroglycerin [Nitrostat] 0.4 mg tablet, sublingual 0.4 mg SUBLINGUAL Q5M PRN (Reason: Chest Pain) Qty: 30 RF: 2 glipizide 10 mg tablet 10 mg PO DAILY RF: 0 clopidogrel 75 mg tablet 75 mg PO DAILY Qty: 90 RF: 3 atorvastatin 40 mg tablet See Rx Instructions .ROUTE .COMPLEX Qty: 30 RF: 5 isosorbide mononitrate 30 mg tablet extended release 24 hr See Rx Instructions .ROUTE .COMPLEX Qty: 180 RF: 5 ranolazine 500 mg tablet extended release 12 hr 500 mg PO BID Qty: 60 RF: 4 colchicine 0.6 mg capsule See Rx Instructions PO DAILY 1 Days Qty: 3 RF: 0 cyclobenzaprine 10 mg tablet 10 mg PO TID PRN (Reason: MUSCLE SPASMS) RF: 0 promethazine 25 mg tablet 25 mg PO TID PRN (Reason: nausea and vomiting) Qty: 20 RF: 0 citalopram 20 mg Tablet 20 mg PO DAILY RF: 0 amlodipine 10 mg tablet 10 mg PO DAILY RF: 0 sodium bicarbonate 650 mg Tablet 650 mg PO TID Qty: 90 RF: 0 prednisone 20 mg tablet 20 mg PO DAILY Qty: 5 RF: 0 acetaminophen [Tylenol 8 Hour] 650 mg tablet extended release 650 mg PO Q8H PRN (Reason: joint pains) Qty: 60 RF: 0 Discharge Orders: Discharge ED (Routine); Ordered 07/30/20 Ordered By: Timo Mckoy Referrals: Kp Montanez DO [Primary Care Provider] - Patient Instructions: Abdominal Pain (ED), Opioid Safety Activity Restrictions/Additional Instructions: Start pantoprazole daily. Follow-up with your aquatics specialist or your primary care doctor early next week. Coding Level of Care Code ED Shop Director for Aaron Fwd Exam Comprehensive
[2020-07-30 10:31] LABS: Basophils # 0.1 10^3/uL (0.0-0.1); Basophils % 0.9 %; Eosinophils # 0.3 10^3/uL (0.0-0.8); Eosinophils % 3.5 %; Hematocrit 31.8 % (42.0-52.0); Hemoglobin 10.4 g/dL (11.7-16.6); Lymphocytes # 1.6 10^3/uL (0.8-4.8); Lymphocytes % 21.6 %; Mean Corpuscular HGB Conc 32.7 g/dL (30.0-36.0); Mean Corpuscular Hemoglobin 28.8 pg (28.0-34.0); Mean Corpuscular Volume 88.1 fL (80-94); Mean Platelet Volume 9.5 fL (7.4-10.4); Monocytes # 0.7 10^3/uL (0.2-0.9); Neutrophils # 4.84 10^3/uL (1.8-7.7); Neutrophils % 64.7 %; Nucleated Red Blood Cells % 0 %; Platelet Count 286 10^3/cmm (130-400); Red Blood Count 3.61 10^6/uL (4.1-5.3); Red Cell Distribution Width 13.5 % (12.1-15.1); White Blood Count 7.5 10^3/uL (4.0-10.0)
[2020-07-30 10:52] VITALS: BP 133/66; PULSE 68; RESP 18; O2SAT 94
[2020-07-30 11:21] LABS: Alanine Aminotransferase 20 U/L (0-41); Albumin Level 3.3 g/dL (3.5-5.2); Alkaline Phosphatase 129 IU/L (40-130); Anion Gap 13.8 (5-19); Aspartate Amino Transferase 16 U/L (0-40); Blood Urea Nitrogen 33 mg/dL (6-20); Calcium 7.7 mg/dL (8.5-10.5); Carbon Dioxide 23 mmol/L (22-29); Chloride 100 mmol/L (98-107); Globulin 2.4 g/dL (1.3-4.6); Glomerular Filtration Rate 33.3 mL/min (90-130); Glucose 203 mg/dL (65-115); Osmolality Calculated 289 mOsm/kg (285-295); Potassium 3.8 mmol/L (3.5-5.1); Sodium 133 mmol/L (136-145); Total Bilirubin 0.5 mg/dL (0.15-1.2); Total Protein 5.7 g/dL (6.6-8.7)
[2020-07-30 11:22] LABS: Lactic Sepsis W/Reflex 1.6 mmol/L (0.5-2.2)
--- NOTE | 2020-07-30 11:22 | CTR_ITS ---
PROCEDURE INFORMATION: Exam: CT Abdomen And Pelvis Without Contrast Exam date and time: 07/30/2020 11:30 AM Age: 50 years old Clinical indication: Abdominal pain; Additional info: Abd pain TECHNIQUE: Imaging protocol: Computed tomography of the abdomen and pelvis without contrast. Radiation optimization: All CT scans at this facility use at least one of these dose optimization techniques: automated exposure control; mA and/or kV adjustment per patient size (includes targeted exams where dose is matched to clinical indication); or iterative reconstruction. COMPARISON: CT abdomen pelvis con [id number] 03/18/2020 6:07 AM RADIATION DOSE METRICS: Total DLP (mGy-cm): 1889.88 FINDINGS: Liver: Normal. No mass. Gallbladder and bile ducts: Cholecystectomy. Normal bile ducts. Pancreas: Normal. No ductal dilation. Spleen: Tiny benign calcified granuloma in the spleen. Adrenal glands: Stable small bilateral benign adrenal adenomas. Kidneys and ureters: There is mild bilateral renal cortical atrophy. There is prominent calcification of the renal arteries. Stomach and bowel: There are scattered diverticuli in the colon. There is no evidence of acute diverticulitis. Appendix: No evidence of appendicitis. Intraperitoneal space: Unremarkable. No free air. No significant fluid collection. Vasculature: The aorta is calcified but there is no aneurysm. Lymph nodes: Unremarkable. No enlarged lymph nodes. Urinary bladder: Unremarkable as visualized. Reproductive: Unremarkable as visualized. Bones/joints: Degenerative changes are present in the spine with scattered sclerosis and osteophytes. . Soft tissues: Unremarkable. CT/CT abdomen pelvis [facility] [id number] IMPRESSION: No acute abnormalities are seen in the abdomen and pelvis. Radiation Dose CTDIVOL = (mGy): DLP = 1889.88 (mGy-cm)
[2020-07-30] MEDS: promethazine 25 mg/mL SDV 1 mL IM (11:26)
[2020-07-30 11:28] VITALS: RESP 19; O2SAT 95
[2020-07-30] MEDS: morphine 4 mg/mL SDV 1 mL IVP (11:28)
[2020-07-30 11:51] LABS: Urine Appearance Clear (CLEAR); Urine Color Straw (Yellow); pH Urine 5 (5-7)
[2020-07-30 11:52] LABS: Bilirubin Urine Neg (Negative); Blood Urine Neg (Negative); Glucose Urine UA 2+ (Normal); Ketones Urine Negative (Negative); Leukocyte Esterase Urine Negative (Negative); Nitrate Urine Negative (Negative); Protein Urine 2+ (Negative); Urobilinogen Urine Norm (Negative)
[2020-07-30 11:54] LABS: Bacteria Urine TRACE /hpf; Mucus Urine TRACE /hpf
[2020-07-30 12:04] LABS: Add Urine Culture? No
[2020-07-30 12:44] VITALS: BP 133/66; PULSE 76; RESP 21; O2SAT 95
--- NOTE | 2020-07-30 13:39 | ECG_ITS ---
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 Measurements Intervals [place] Rate: 72 P: -9 GA: 182 QRS: -8 QRSD: 101 T: 50 QT: 375 QTc: 412 Interpretive Statements SINUS RHYTHM POSSIBLE ANTERIOR MYOCARDIAL INFARCTION , OF INDETERMINATE AGE [30 ms Q WAVE IN V3/V4, OR R < 0.2 mV IN V4] Compared to ECG 04/08/2020 19:05:41 T-wave abnormality no longer present Possible ischemia no longer present Myocardial infarct finding still present Electronically Signed On 07-30-2020 19:38:03 PARCEL POST WEIGHER by Karen Choi M.D. [id number]
== END 2020-07-30 12:53 | disposition home or self-care (01) ==
PROVIDERS: Emergency Provider Family Medicine; PCP Internal Medicine
DX: R10.13 Epigastric pain (principal); D64.9 Anemia, unspecified; E11.22 Type 2 diabetes mellitus with diabetic chronic kidney disease; N18.9 Chronic kidney disease, unspecified; R10.9 Unspecified abdominal pain; Z79.84 Long term (current) use of oral hypoglycemic drugs; Z79.02 Long term (current) use of antithrombotics/antiplatelets; Z79.82 Long term (current) use of aspirin; I13.0 Hypertensive heart and chronic kidney disease with heart failure and stage 1 through stage 4 chronic kidney disease, or unspecified chronic kidney disease; I50.22 Chronic systolic (congestive) heart failure; I25.2 Old myocardial infarction; E78.5 Hyperlipidemia, unspecified
CPT/HCPCS: 71045; 74176; 80053; 81001; 83605; 85025; 93005; 96372; 96374; 96375; 99284; J2270; J2550

== ENCOUNTER → 2020-08-05 07:00 | Day surgery (SDC) | payer MEDICARE, MEDICAID, SELFPAY ==
[2020-08-05 07:27] VITALS: BP 115/69; PULSE 69; RESP 18; TEMP 36.3; O2SAT 96; BMI 38.2
[2020-08-05 09:01] LABS: Anion Gap 15.3 (5-19); Blood Urea Nitrogen 31 mg/dL (6-20); Calcium 8.7 mg/dL (8.5-10.5); Carbon Dioxide 25 mmol/L (22-29); Chloride 102 mmol/L (98-107); Glomerular Filtration Rate 35.3 mL/min (90-130); Glucose 153 mg/dL (65-115); Magnesium 1.7 mg/dL (1.7-2.3); NT Pro B Type Natriuretic Pept 854 pg/mL (0-125); Osmolality Calculated 296 mOsm/kg (285-295); Potassium 4.3 mmol/L (3.5-5.1); Sodium 138 mmol/L (136-145)
== END ==
PROVIDERS: Internal Medicine Cardiovascular Disease; PCP Internal Medicine; Visit Provider Internal Medicine
DX: Z45.2 Encounter for adjustment and management of vascular access device (principal)
CPT/HCPCS: 36591; 80048; 83735; 83880

== ENCOUNTER → 2020-09-05 10:32 | Day surgery (SDC) | payer MEDICARE, MEDICAID, SELFPAY ==
[2020-09-05 10:35] VITALS: BP 143/77; PULSE 78; RESP 18; TEMP 36.1; O2SAT 97
[2020-09-05 11:02] VITALS: BP 143/77; PULSE 78; RESP 18; TEMP 36.1; O2SAT 97
== END ==
PROVIDERS: PCP Internal Medicine; Visit Provider Internal Medicine
DX: Z45.2 Encounter for adjustment and management of vascular access device (principal)
CPT/HCPCS: 96368; 96523

== ENCOUNTER 2020-09-05 19:01 | Emergency (ER) | payer MEDICARE, MEDICAID, SELFPAY ==
[2020-09-05 19:13] VITALS: BP 125/69; PULSE 90; RESP 18; TEMP 36.9; O2SAT 96; BMI 37.4
--- NOTE | 2020-09-05 19:18 | XRR_ITS ---
PROCEDURE INFORMATION: Exam: XR Chest Exam date and time: 09/05/2020 7:45 PM Age: 50 years old Clinical indication: Chest pain; Type not specified; Prior surgery; Surgery type: Open heart, stents, port; Patient HX: Cp, abd pain, gi bleed TECHNIQUE: Imaging protocol: XR of the chest. Views: Frontal portable upright view of the chest. COMPARISON: CR (CHEST, ) 07/30/2020 10:08 AM FINDINGS: Tubes, catheters and devices: The patient is status post median sternotomy with intact sternal cerclage wires. The left subclavian venous portacatheter tip is in the lower SVC. Lungs: Stable left lateral basilar subsegmental atelectasis. The lungs are otherwise peripherally clear bilaterally. The pulmonary vasculature is normal. Pleural spaces: No pleural effusion. No pneumothorax. Heart/Mediastinum: Mediastinum: Stable. The heart is normal in size and contour. Bones/joints: Stable. XR/XR chest 1V portable [id number] IMPRESSION: Stable left lateral basilar subsegmental atelectasis.
--- NOTE | 2020-09-05 19:19 | ECG_ITS ---
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 Measurements Intervals [place] Rate: 78 P: 11 SC: 170 QRS: 6 QRSD: 105 T: 52 QT: 376 QTc: 430 Interpretive Statements SINUS RHYTHM WITH OCCASIONAL VENTRICULAR PREMATURE COMPLEXES POSSIBLE ANTERIOR MYOCARDIAL INFARCTION , OF INDETERMINATE AGE [30 ms Q WAVE IN V3/V4, OR R < 0.2 mV IN V4] Compared to ECG 07/30/2020 09:51:09 Ventricular premature complex(es) now present Myocardial infarct finding still present Electronically Signed On 09-06-2020 12:10:42 CDT by Tory Lopez M.D. [email or web address]
[2020-09-05 20:45] VITALS: BP 166/90; PULSE 86; RESP 17; O2SAT 97
--- NOTE | 2020-09-05 20:48 | XRR_ITS ---
PROCEDURE INFORMATION: Exam: XR Abdomen Exam date and time: 09/05/2020 8:54 PM Age: 50 years old Clinical indication: Abdominal pain; Localized; Right lower quadrant (rlq); Prior surgery; Surgery type: Gb appy; Patient HX: Cp abd pain gi bleed; Additional info: Llq abd pain TECHNIQUE: Imaging protocol: XR of the abdomen. Views: Frontal supine view of the abdomen. 1 View. COMPARISON: CR Abdomen Series Acute [id number] 08/16/2018 7:13 PM FINDINGS: Gastrointestinal tract: Unremarkable. No bowel dilation. Bones/joints: Bilateral lower lumbar facet primary osteoarthritis. Soft tissues: Bilateral vas deferens calcification suggesting diabetes. Calcified phleboliths are present in the lower pelvis bilaterally. XR/XR KUB portable [id number] IMPRESSION: No acute abdominal or pelvic abnormality identified.
--- NOTE | 2020-09-05 20:53 | W.ED.CHESTPA ---
Documented by User: Macario Henderson DO 09/05/20 22:13 HPI - Chest Pain General: Chief Complaint: Chest Pain Stated Complaint: RLQ ABD PAIN W/BLOODY BOWEL D/C, CP Time Seen by Provider: 09/05/20 20:41 History of Present Illness: HPI narrative: 50-year-old male presents with right lower quadrant pain. He reports can get a sharp pain most the day in the right lower quadrant. That he had an episode of stool with blood in it. He also complains of chest pain on and off for the last couple days. He has taken 4 nitros over the last couple days. He does state he gets some relief with it. Patient denies any dysuria. Patient is on Eliquis. Associated symptoms: Reports abdominal pain; Deny dyspnea, fever(s), palpitations or vomiting Review of Systems Const: Denies: fever(s), chills or malaise Eyes: Denies: change in vision ENMT: Denies: throat pain Card: Reports: chest pain; Denies: palpitations or lightheadedness Resp: Denies: dyspnea, productive cough or non-productive cough GI: Reports: abdominal pain and hematochezia; Denies: nausea or vomiting : Denies: flank pain, difficulty urinating or dysuria Musc: Denies: neck pain Skin/Breast: Denies: rash Neuro: Denies: headache(s) Psych: Denies: anxiety PFSH ED PFSH: Medical History Anemia Atherosclerotic heart disease of [place] coronary artery with other forms of angina pectoris hx of CAD with prior stenting of proximal LAD, LCx, RCA Chronic kidney disease -baseline Cr appears to be around 1.5 Chronic systolic heart failure EF=47%, diffuse LV hypokinesis, mildly increased LA size Depression Diabetes A1c-7.6 (08/2019) Foot drop, left H/O acute myocardial infarction H/O deep venous thrombosis developed compartment syndrome Hyperlipidemia Hypertension Hypothyroidism Ischemic cardiomyopathy Obesity (BMI 30-39.9) Osteoarthritis of spine Surgical History H/O colonoscopy 08/2015 H/O esophagogastroduodenoscopy 08/2015 H/O removal of testicle left H/O skin graft H/O vasectomy History of appendectomy History of coronary artery stent placement 5x History of excision of mass 06/08/2019: Subcutaneous mass on back History of inguinal hernia repair, bilateral 1999 History of removal of Port-a-Cath Hx of cholecystectomy Port-A-Cath in place Family History Grandfather Cancer skin cancer Parkinson disease Brother Hypertension Father Heart disease Mother Hypertension Stroke Aneurysm Grandmother Aneurysm Other Crohn disease Denies family history of Anesthesia complication Bleeding disorder Social History Smoking and tobacco status: never smoked Alcohol intake: former Former alcohol use details: Only holidays Lives independently: Yes Household members: significant other Marital status: Single Current occupational status: disabled History of recent travel: No Physical Exam Const: COMMON NORMALS: no acute distress, patient oriented x3 and no limitations GENERAL APPEARANCE: cooperative Resp: COMMON NORMALS: normal respiratory effort and clear to auscultation bilaterally AUSCULTATION: clear to auscultation bilaterally Cardio: COMMON NORMALS: regular rate and regular rhythm RATE: regular rate RHYTHM: regular rhythm GI: COMMON NORMALS: Soft to palpation PALPATION: Yes Soft to palpation and Yes Tenderness to palpation present (GI) Details: RLQ RECTAL EXAM: Yes visual inspection normal and Yes heme negative stool Extremity: COMMON NORMALS: normal to inspection and full ROM Neuro: COMMON NORMALS: patient oriented x3 and no focal motor deficits Psych: COMMON NORMALS: mental status grossly normal, normal affect and speech normal SPEECH: Yes normal speech Skin: COMMON NORMALS: no rashes or lesions noted GENERAL SKIN EXAM: no rashes or lesions noted Course Vital Signs: Vital signs: Vital Signs Temperature 98.4 F 09/05/20 19:13 Pulse Rate 81 09/05/20 23:12 Respiratory Rate 16 09/05/20 23:12 Blood Pressure 158/88 09/05/20 23:12 Pulse Oximetry 92 09/05/20 23:12 MDM - Chest Pain Lab Data: Labs: Lab Results 09/05/20 09/05/20 09/05/20 Range/Units 19:15 21:13 21:13 WBC 10.7 H (4.0-10.0) 10^3/ uL RBC 4.20 (4.1-5.3) 10^6/u L Hgb 11.9 (11.7-16.6) g/dL Hct 36.1 L (42.0-52.0) % MCV 86.0 (80-94) fL MCH 28.3 (28.0-34.0) pg MCHC 33.0 (30.0-36.0) g/dL RDW 14.6 (12.1-15.1) % Plt Count 306 (130-400) 10^3/c mm MPV 9.4 (7.4-10.4) fL Neut % (Auto) 67.3 % Lymph % (Auto) 20.6 % [place] % (Auto) 8.9 % Eos % (Auto) 2.0 % Baso % (Auto) 0.9 % Neut # (Auto) 7.22 (1.8-7.7) 10^3/u L Lymph # (Auto) 2.2 (0.8-4.8) 10^3/u L [place] # (Auto) 1.0 H (0.2-0.9) 10^3/u L Eos # (Auto) 0.2 (0.0-0.8) 10^3/u L Baso # (Auto) 0.1 (0.0-0.1) 10^3/u L Nucleated RBC % (a uto) 0 % Nucleated RBCs # 0.0 /100WBC Sodium 132 L (136-145) mmol/L Potassium 4.2 (3.5-5.1) mmol/L Chloride 96 L (98-107) mmol/L Carbon Dioxide 25 (22-29) mmol/L Anion Gap 15.2 (5-19) BUN 39 H (6-20) mg/dL Creatinine 2.2 H (0.7-1.2) mg/dL GFR Calculation 31.6 L (90-130) mL/min Glucose 162 H (65-115) mg/dL Calculated Osmolal ity 287 (285-295) mOsm/k g Lactate (0.5-2.2) mmol/L Calcium 8.2 L (8.5-10.5) mg/dL Total Bilirubin 0.6 (0.15-1.2) mg/dL AST 17 (0-40) U/L ALT 20 (0-41) U/L Alkaline Phosphata se 140 H (40-130) IU/L Troponin T Baselin e (0-15) ng/L Troponin T 120 Min [place] (0-15) ng/L Delta Troponin T (0-10) ABS# Total Protein 6.7 (6.6-8.7) g/dL Albumin 3.9 (3.5-5.2) g/dL Globulin 2.8 (1.3-4.6) g/dL Lipase 58 (13-60) U/L Urine Color Yellow (Yellow) Urine Appearance Clear (CLEAR) Urine pH 5 (5-7) Ur Specific Gravit y 1.005 (1.005-1.030) Urine Protein 3+ H (Negative) Urine Glucose (UA) Norm (Normal) Urine Ketones Negative (Negative) Urine Blood 2+ H (Negative) Urine Nitrate Negative (Negative) Urine Bilirubin Neg (Negative) Urine Urobilinogen Norm (Negative) mg/dL Ur Leukocyte Carmen ase Negative (Negative) Urine RBC 0-4 H (0-2) /hpf Urine WBC 0-4 H (0-5) /hpf Ur Squamous Epith Cells 0-4 H (0-5) /hpf Amorphous Sediment Not Reportable Urine Bacteria None (NONE) /hpf Hyaline Casts 0-4 H /lpf 09/05/20 09/05/20 09/05/20 Range/Units 21:13 21:13 23:13 WBC (4.0-10.0) 10^3/ uL RBC (4.1-5.3) 10^6/u L Hgb (11.7-16.6) g/dL Hct (42.0-52.0) % MCV (80-94) fL MCH (28.0-34.0) pg MCHC (30.0-36.0) g/dL RDW (12.1-15.1) % Plt Count (130-400) 10^3/c mm MPV (7.4-10.4) fL Neut % (Auto) % Lymph % (Auto) % [place] % (Auto) % Eos % (Auto) % Baso % (Auto) % Neut # (Auto) (1.8-7.7) 10^3/u L Lymph # (Auto) (0.8-4.8) 10^3/u L [place] # (Auto) (0.2-0.9) 10^3/u L Eos # (Auto) (0.0-0.8) 10^3/u L Baso # (Auto) (0.0-0.1) 10^3/u L Nucleated RBC % (a uto) % Nucleated RBCs # /100WBC Sodium (136-145) mmol/L Potassium (3.5-5.1) mmol/L Chloride (98-107) mmol/L Carbon Dioxide (22-29) mmol/L Anion Gap (5-19) BUN (6-20) mg/dL Creatinine (0.7-1.2) mg/dL GFR Calculation (90-130) mL/min Glucose (65-115) mg/dL Calculated Osmolal ity (285-295) mOsm/k g Lactate 0.6 (0.5-2.2) mmol/L Calcium (8.5-10.5) mg/dL Total Bilirubin (0.15-1.2) mg/dL AST (0-40) U/L ALT (0-41) U/L Alkaline Phosphata se (40-130) IU/L Troponin T Baselin e 31 H (0-15) ng/L Troponin T 120 Min [place] 29.91 H (0-15) ng/L Delta Troponin T -1.09 L (0-10) ABS# Total Protein (6.6-8.7) g/dL Albumin (3.5-5.2) g/dL Globulin (1.3-4.6) g/dL Lipase (13-60) U/L Urine Color (Yellow) Urine Appearance (CLEAR) Urine pH (5-7) Ur Specific Gravit y (1.005-1.030) Urine Protein (Negative) Urine Glucose (UA) (Normal) Urine Ketones (Negative) Urine Blood (Negative) Urine Nitrate (Negative) Urine Bilirubin (Negative) Urine Urobilinogen (Negative) mg/dL Ur Leukocyte Carmen ase (Negative) Urine RBC (0-2) /hpf Urine WBC (0-5) /hpf Ur Squamous Epith Cells (0-5) /hpf Amorphous Sediment Urine Bacteria (NONE) /hpf Hyaline Casts /lpf EKG Data^: EKG 1: Attestation: I personally reviewed and interpreted this EKG as follows: EKG interpretation date: 09/05/20 EKG interpretation time: 21:39 Prior EKG tracings: available for review Interpretation: HR 78, DE 170 , similar to 07/30/20, sinus, pvc Discharge Plan Discharge Patient Disposition: Home Clinical Impression: Abdominal pain in male, Diverticulosis of colon without diverticulitis Chest pain Qualifiers: Chest pain type: unspecified Qualified Code(s): R07.9 - Chest pain, unspecified Condition: Stable Prescriptions: New ciprofloxacin HCl 500 mg tablet 500 mg PO BID Qty: 10 RF: 0 Flagyl 500 mg tablet 500 mg PO BID Qty: 10 RF: 0 hydrocodone-acetaminophen 5-325 mg tablet 1 tab PO Q6H Qty: 12 RF: 0 No Action apixaban 5 mg tablet 5 mg PO Q12H Qty: 60 RF: 3 (DME) diabetic shoes Qty: 1 RF: 0 multivitamin [Daily Multi-Vitamin] Tablet 1 tab PO DAILY@0600 RF: 0 levothyroxine 88 mcg capsule 88 mcg PO DAILY@0600 RF: 0 metoprolol tartrate 50 mg tablet 50 mg PO BID@0600,1800 RF: 0 metformin 500 mg tablet 500 mg PO BID@0600,1800 RF: 0 Hold Instructions: hold until instructed to resume, ask at follow up, held due to acute kidney injury Trulicity 0.75 mg/0.5 mL pen injector 0.75 mg SUBCUT Q7D RF: 0 aspirin 81 mg tablet,delayed release (DR/EC) 81 mg PO DAILY@0600 RF: 0 (DME) [place] See Rx Instructions .Route .MEDSUPPLY Qty: 1 RF: 0 nitroglycerin [Nitrostat] 0.4 mg tablet, sublingual 0.4 mg SUBLINGUAL Q5M PRN (Reason: Chest Pain) Qty: 30 RF: 2 potassium chloride 20 mEq tablet extended release 20 meq PO .COMPLEX Qty: 45 RF: 3 cyclobenzaprine 10 mg tablet 10 mg PO TID PRN (Reason: MUSCLE SPASMS) RF: 0 promethazine 25 mg tablet 25 mg PO TID PRN (Reason: nausea and vomiting) Qty: 20 RF: 0 citalopram 20 mg Tablet 20 mg PO DAILY@0600 RF: 0 amlodipine 10 mg tablet 10 mg PO DAILY@0600 RF: 0 Humalog U-100 Insulin 100 unit/mL solution See Rx Instructions .ROUTE .COMPLEX RF: 0 furosemide 40 mg tablet 40 mg PO BID@0600,1800 RF: 0 atorvastatin 40 mg tablet 40 mg PO DAILY@0600 RF: 0 isosorbide mononitrate 30 mg tablet extended release 24 hr 30 mg PO BID@0600,1800 RF: 0 ranolazine 500 mg tablet extended release 12 hr 500 mg PO BID@0600,1800 RF: 0 Discharge Orders: Discharge ED (Routine); Ordered 09/05/20 Ordered By: Subhash Ta Referrals: Quique Reese MD [Physician] - (follow up in next 1-2 weeks for evaluation of blood in your stool.) Kp Montanez DO [Primary Care Provider] - Discharge Diet: Advance as tolerated Discharge Activity: Resume usual activity Patient Instructions: Chest Pain (ED), Rectal Bleeding (ED), Abdominal Pain (ED) Coding Level of Care Code ED Dopeman for Chg Fwd Exam Comprehensive Documented by User: Subhash Ta MD 09/05/20 23:44 HPI - Chest Pain General: Chief Complaint: Chest Pain Stated Complaint: RLQ ABD PAIN W/BLOODY BOWEL D/C, CP Time Seen by Provider: 09/05/20 20:41 PFSH ED PFSH: Medical History Anemia Atherosclerotic heart disease of [place] coronary artery with other forms of angina pectoris hx of CAD with prior stenting of proximal LAD, LCx, RCA Chronic kidney disease -baseline Cr appears to be around 1.5 Chronic systolic heart failure EF=47%, diffuse LV hypokinesis, mildly increased LA size Depression Diabetes A1c-7.6 (08/2019) Foot drop, left H/O acute myocardial infarction H/O deep venous thrombosis developed compartment syndrome Hyperlipidemia Hypertension Hypothyroidism Ischemic cardiomyopathy Obesity (BMI 30-39.9) Osteoarthritis of spine Surgical History H/O colonoscopy 08/2015 H/O esophagogastroduodenoscopy 08/2015 H/O removal of testicle left H/O skin graft H/O vasectomy History of appendectomy History of coronary artery stent placement 5x History of excision of mass 06/08/2019: Subcutaneous mass on back History of inguinal hernia repair, bilateral 2000 History of removal of Port-a-Cath Hx of cholecystectomy Port-A-Cath in place Family History Grandfather Cancer skin cancer Parkinson disease Brother Hypertension Father Heart disease Mother Hypertension Stroke Aneurysm Grandmother Aneurysm Other Crohn disease Denies family history of Anesthesia complication Bleeding disorder Social History Smoking and tobacco status: never smoked Alcohol intake: former Former alcohol use details: Only holidays Lives independently: Yes Household members: significant other Marital status: Single Current occupational status: disabled History of recent travel: No Course Vital Signs: Vital signs: Vital Signs Temperature 98.4 F 09/05/20 19:13 Pulse Rate 81 09/05/20 23:12 Respiratory Rate 16 09/05/20 23:12 Blood Pressure 158/88 09/05/20 23:12 Pulse Oximetry 92 09/05/20 23:12 MDM - Chest Pain Lab Data: Labs: Lab Results 09/05/20 09/05/20 09/05/20 Range/Units 19:15 21:13 21:13 WBC 10.7 H (4.0-10.0) 10^3/ uL RBC 4.20 (4.1-5.3) 10^6/u L Hgb 11.9 (11.7-16.6) g/dL Hct 36.1 L (42.0-52.0) % MCV 86.0 (80-94) fL MCH 28.3 (28.0-34.0) pg MCHC 33.0 (30.0-36.0) g/dL RDW 14.6 (12.1-15.1) % Plt Count 306 (130-400) 10^3/c mm MPV 9.4 (7.4-10.4) fL Neut % (Auto) 67.3 % Lymph % (Auto) 20.6 % [place] % (Auto) 8.9 % Eos % (Auto) 2.0 % Baso % (Auto) 0.9 % Neut # (Auto) 7.22 (1.8-7.7) 10^3/u L Lymph # (Auto) 2.2 (0.8-4.8) 10^3/u L [place] # (Auto) 1.0 H (0.2-0.9) 10^3/u L Eos # (Auto) 0.2 (0.0-0.8) 10^3/u L Baso # (Auto) 0.1 (0.0-0.1) 10^3/u L Nucleated RBC % (a uto) 0 % Nucleated RBCs # 0.0 /100WBC Sodium 132 L (136-145) mmol/L Potassium 4.2 (3.5-5.1) mmol/L Chloride 96 L (98-107) mmol/L Carbon Dioxide 25 (22-29) mmol/L Anion Gap 15.2 (5-19) BUN 39 H (6-20) mg/dL Creatinine 2.2 H (0.7-1.2) mg/dL GFR Calculation 31.6 L (90-130) mL/min Glucose 162 H (65-115) mg/dL Calculated Osmolal ity 287 (285-295) mOsm/k g Lactate (0.5-2.2) mmol/L Calcium 8.2 L (8.5-10.5) mg/dL Total Bilirubin 0.6 (0.15-1.2) mg/dL AST 17 (0-40) U/L ALT 20 (0-41) U/L Alkaline Phosphata se 140 H (40-130) IU/L Troponin T Baselin e (0-15) ng/L Troponin T 120 Min [place] (0-15) ng/L Delta Troponin T (0-10) ABS# Total Protein 6.7 (6.6-8.7) g/dL Albumin 3.9 (3.5-5.2) g/dL Globulin 2.8 (1.3-4.6) g/dL Lipase 58 (13-60) U/L Urine Color Yellow (Yellow) Urine Appearance Clear (CLEAR) Urine pH 5 (5-7) Ur Specific Gravit y 1.005 (1.005-1.030) Urine Protein 3+ H (Negative) Urine Glucose (UA) Norm (Normal) Urine Ketones Negative (Negative) Urine Blood 2+ H (Negative) Urine Nitrate Negative (Negative) Urine Bilirubin Neg (Negative) Urine Urobilinogen Norm (Negative) mg/dL Ur Leukocyte Carmen ase Negative (Negative) Urine RBC 0-4 H (0-2) /hpf Urine WBC 0-4 H (0-5) /hpf Ur Squamous Epith Cells 0-4 H (0-5) /hpf Amorphous Sediment Not Reportable Urine Bacteria None (NONE) /hpf Hyaline Casts 0-4 H /lpf 09/05/20 09/05/20 09/05/20 Range/Units 21:13 21:13 23:13 WBC (4.0-10.0) 10^3/ uL RBC (4.1-5.3) 10^6/u L Hgb (11.7-16.6) g/dL Hct (42.0-52.0) % MCV (80-94) fL MCH (28.0-34.0) pg MCHC (30.0-36.0) g/dL RDW (12.1-15.1) % Plt Count (130-400) 10^3/c mm MPV (7.4-10.4) fL Neut % (Auto) % Lymph % (Auto) % [place] % (Auto) % Eos % (Auto) % Baso % (Auto) % Neut # (Auto) (1.8-7.7) 10^3/u L Lymph # (Auto) (0.8-4.8) 10^3/u L [place] # (Auto) (0.2-0.9) 10^3/u L Eos # (Auto) (0.0-0.8) 10^3/u L Baso # (Auto) (0.0-0.1) 10^3/u L Nucleated RBC % (a uto) % Nucleated RBCs # /100WBC Sodium (136-145) mmol/L Potassium (3.5-5.1) mmol/L Chloride (98-107) mmol/L Carbon Dioxide (22-29) mmol/L Anion Gap (5-19) BUN (6-20) mg/dL Creatinine (0.7-1.2) mg/dL GFR Calculation (90-130) mL/min Glucose (65-115) mg/dL Calculated Osmolal ity (285-295) mOsm/k g Lactate 0.6 (0.5-2.2) mmol/L Calcium (8.5-10.5) mg/dL Total Bilirubin (0.15-1.2) mg/dL AST (0-40) U/L ALT (0-41) U/L Alkaline Phosphata se (40-130) IU/L Troponin T Baselin e 31 H (0-15) ng/L Troponin T 120 Min [place] 29.91 H (0-15) ng/L Delta Troponin T -1.09 L (0-10) ABS# Total Protein (6.6-8.7) g/dL Albumin (3.5-5.2) g/dL Globulin (1.3-4.6) g/dL Lipase (13-60) U/L Urine Color (Yellow) Urine Appearance (CLEAR) Urine pH (5-7) Ur Specific Gravit y (1.005-1.030) Urine Protein (Negative) Urine Glucose (UA) (Normal) Urine Ketones (Negative) Urine Blood (Negative) Urine Nitrate (Negative) Urine Bilirubin (Negative) Urine Urobilinogen (Negative) mg/dL Ur Leukocyte Carmen ase (Negative) Urine RBC (0-2) /hpf Urine WBC (0-5) /hpf Ur Squamous Epith Cells (0-5) /hpf Amorphous Sediment Urine Bacteria (NONE) /hpf Hyaline Casts /lpf Imaging Data^: CT Abd/Pel: Radiologist's impression: Chart Viewer Summary Widget data for 09/05/20 (REG ER) No Data to Display Stated Complaint RLQ ABD PAIN W/BLOODY BOWEL D/C, CP Chief Complaint Chest Pain Condition Stable Arrival Date/Time 09/05/20 19:01 Arrival Mode Walk-In Triaged At 09/05/20 19:13 ED Location Emergency Department Area/Station ED 06 Station 1 Stated Complaint RLQ ABD PAIN W/BLOODY BOWEL D/C, CP Chief Complaint Chest Pain ED Patient Rounding 09/05/20 23:13 Vital Signs 09/05/20 23:12 Pain Reassessment 09/05/20 22:35 Access Port-a-cath 09/05/20 21:21 Patient Safety Check 09/05/20 20:46 Elopement Risk Assessment 09/05/20 20:46 Aggression Rating Tool 09/05/20 20:46 Patient Belongings 09/05/20 20:43 ED Chest Pain Assessment 09/05/20 20:40 Sepsis Screening 09/05/20 19:13 Suicide Risk Assessment 09/05/20 19:13 Fall Risk Assessment 09/05/20 19:13 Initial Pain Assessment 09/05/20 19:13 ED Triage Assessment 09/05/20 19:13 ED Vital Signs with Sepsis 09/05/20 19:13 DATE LOCATION/ PROVIDER PROBLEM 09/05/20 [facility] Jeremías Neumann MD RLQ ABD PAIN W/BLOODY BOWEL D/C, CP 09/05/20 Emergency Room Subhash Ta MD 09/05/20 [facility] MontanezKp kevin, port maintenance 08/18/20 Physical Therapy Quintin Curtis MD LEFT KNEE PAIN 08/15/20 [facility] Heart and Lung Ty Ty Amalia Mccain, ROAD MAKER 08/06/20 [facility] Mary Collins, MELISSA Cellulitis 08/05/20 GI Lab MontanezKp kevin, Encounter for adjustment and management of vascular access device 07/30/20 [facility] Heart [facility] Lung Ty Ty Karen Choi MD BACK/AB PAIN, ABNORMAL WEIGHT GAIN 07/30/20 [facility] Timo Mckoy DO BACK/AB PAIN, ABNORMAL WEIGHT GAIN 07/30/20 Emergency Room [facility]ckoy [facility] Obstructive sleep apnea (adult) (pediatric) 07/26/20 [facility] Joselito Rashid MD Obstructive sleep apnea (adult) (pediatric) 07/19/20 [facility] Podiatry Cuco Patterson DPM 07/18/20 Physical Therapy Quintin Curtis MD 07/08/20 [facility] Kp Montanez, Encounter for adjustment and management of vascular access device 06/28[facility]20 [facility] Hypersomnia, unspecified 06/28/20 [facility] Joselito Rashid MD Hypersomnia G47.10 [id number] 06/20/20 Physical Therapy Quintin Curtis MD 06/08/20 [facility] Podiatry Cuco Patterson, MARIYAM 06/04/20 Lab - Main Lab Mary Collins, ROAD MAKER 06/04/20 [facility] Mary Collins, ROAD MAKER Knee pain 05/25/20 [facility] Podiatry Cuco Patterson, DPM 05/23/20 [facility] Antolin Weiss MD Type 2 diabetes mellitus with diabetic chronic kidney disease 05/20/20 Physical Therapy Quintin Curtis MD 05/20/20 Cardiac Rehabilitation JohnTory palomo MD Stable Angina I20.9 05/18/20 [facility] Antolin Weiss MD Chronic kidney disease, stage 3 unspecified 05/18/20 Physical Therapy Quintin Curtis MD 05/10/20 [facility] Tarsha Farmer, Pain in left knee 05/10/20 [facility] Quintin Metcalf MD Pain in left knee 04/26/20 [facility] Tory Lopez MD 04/25/20 [facility] Orthopedics and Spine Quintin Metcalf MD Knee pain 04/20/20 Radiology Read [facility] Kp Montanez DO EFFUSION,LEFT KNEE 04/20/20 [facility] Peyton Powell MD EFFUSION,LEFT KNEE 04/19/20 Cardiac Rehabilitation Tory Lopez MD Stable Angina I20.9 04/18/20 [facility] Carolina Durant MD Anemia in chronic kidney disease 04/18/20 Lab - Main Lab Carolina Durant MD N17.9; E11.9; N18.9;D646.9;M10.9 04/13/20 [facility] Tarsha Farmer DO 04/12/20 [facility] Gregory Reyes Jr, MD 04/11/20 Cardiac Stepdown Carolina Durant MD 04/08/20 [facility] Rosi Etienne MD CHEST PAIN 04/08/20 [facility] Windy Blake MD 04/08/20 [facility] Heart [facility] Lung Ty Ty Tory Lopez MD CHEST PAIN 04/08/20 [facility] Tarsha Farmer, DO CHEST PAIN 04/01/20 [facility] Lung Ty Ty Amalia Mccain, ROAD MAKER Chest pain 03/30/20 [facility] Garrison Mckinney M.D CP 03/30/20 [facility] Peyton Powell MD CP 03/30/20 [facility] Timo Mckoy, CP 03/30/20 Emergency Room Apryl Graves N Chest pain 03/27/20 [facility] Mary Collins, ROAD MAKER Contusion of abdominal wall 03/22/20 Cardiac Rehabilitation Tory Lopez [facility] Stable Angina I20.9 03/19/20 Cardiac Stepdown Jing Brown MD 03/19/20 [facility] Rosi Vee MD 03/18/20 [facility] Estefany Santos, DO n/v, diarrhea, headache 03/18/20 [facility] Rosi Vee MD 03/18/20 [facility] Rosi Vee MD 03/18/20 [facility] Tarsha Farmer, DO n/v, diarrhea, headache 03/18/20 [facility] ElyApryl N n/v, diarrhea, headache 03/15/20 [facility] Jimbo Pyle, vomiting w/red spec, loose stool w/dark red specks 03/15/20 [facility] Rina Harris vomiting w/red spec, loose stool w/dark red specks 03/15/20 Emergency Room Rina Harris Gastroenteritis 03/14/20 [facility] Podiatry Cuco Patterson, ELIOT 03/12/20 [facility] SomersetTory palomo MD flank pain/belly pain/ intestinal pain 03/12/20 Emergency Room Guillermo Cohen, Chest pain 03/12/20 [facility] Timo Mckoy, DO flank pain/belly pain/ intestinal pain 03/03/20 [facility] Kp Montanez, Presence of other vascular implants and grafts 03/03/20 [facility] PodiatrCuco Haley DPM 02/19/20 Cardiac Rehabilitation Tory Lopez MD 02/17/20 [facility] Podiatry Cuco Patterson DPM 02/11/20 [facility] Podiatry Cuco Patterson DPM ulceration/hammertoe 02/05/20 [facility] Podiatry Cuco Patterson DPM 02/01/20 [facility] Antolin Weiss MD CKD STG 3 02/01/20 [facility] Kp Montanez, Type 2 diabetes mellitus without complications 01/28/20 Physical Therapy Cuco Neumann DPM Encounter for fitting and adjustment of other specified devices 01/28/20 Radiology-Clinics Cuco Patterson DPM Corns and callosities 01/28/20 [facility] PodiatrCuco Haley DPM 01/19/20 Cardiac Rehabilitation Tory Lopez MD 01/14/20 [facility] Heart [facility] Lung Ty Ty Tory Lopez MD 01/07/20 [facility] Kp Montanez DO Encounter for adjustment and management of vascular access device 12/29/19 [facility] PodiatrCuco Haley DPM 12/22/19 Cardiac Rehabilitation Tory Lopez MD 12/14/19 Radiology Read [facility] Cl[facility]-acu Kp Montanez DO left foot pain 12/14/19 GI Lab Kp Montanez DO [id number] 12/14/19 [facility] Tarsha Farmer DO left foot pain 12/03/19 [facility] Heart and Lung Ty Ty Karen Choi MD 12/02/19 Cardiac Stepdown Jing Brown MD 12/02/19 [facility] Heart [facility] Lung Ty Ty Vinayak Bejarano MD 12/02/19 [facility] Heart [facility] Lung Ty Ty Karen Choi MD 12/01/19 [facility] Heart [facility] Lung Ty Ty Tory Lopez MD Chest pain, unspecified 12/01/19 [facility] Ely,Apryl Batool Chest pain, unspecified 12/01/19 [facility] Heart and Lung Ty Ty Rosi Vee MD cp,palomo 12/01/19 [facility] Andrew Gonzalez MD cp,palomo 11/21/19 [facility] Malathi Madison NP Impetigo 11/18/19 [facility] JohnTory palomo MD 11/12/19 GI Lab Kp Montanez, Presence of other vascular implants and grafts 10/27/19 Cardiac Rehabilitation Tory Lopez MD 10/27/19 [facility] Podiatry Cuco Patterson DPM 10/14/19 Outpatient Surgical Services Jay Sherman MD Chronic kidney disease, unspecified 09/29/19 [facility] 09/12/19 [facility] [place] Karen Choi MD 09/11/19 Medical Surgical Floor Nancy Watson MD Chest pain 09/11/19 [facility] [place] Karen Choi MD 09/11/19 [facility] Heart [facility] Lung [place] Karen Choi MD 09/10/19 [facility] Nancy Watson MD CHEST PAIN 09/10/19 [facility] Jose Franklin MD cp 09/10/19 [facility] [place] Karen Choi MD CHEST PAIN 09/10/19 [facility] Fwd Ellen Nath PA cp Employment DISABLED disabled Disabled Portal Enrolled Preferred Address [address] [place] [address] [phone] [place] [address] Next of Kin Chantale Queen () Person to Notify Vamshi Queen (Brother) Primary Insurance [id number] [facility] Pharmacy [facility] #[id number] (Preferred) [facility] No Data to Display No Data to Display Today Today Today Today Today Today Today Today Today Today Today Today Today Today Today Today Today Today Today Today Today 02/18/19 02/18/19 02/18/19 02/18/19 02/18/19 02/18/19 02/18/19 02/18/19 02/18/19 02/18/19 02/18/19 Today /18/19 02/18/19 02/18/19 20/20 20/20 03/12/20 /20/20 09/19/19 09/19/19 09/19/19 09/19/19 09/19/19 09/19/19 09/19/19 09/19/19 Today Today Today Today Today Today Today Today Today 04/14/20 02/26/19 05/18/2020 Today 07/30/20 Today 06/04/20 Today 05/18/20 08/05/20 Today Today Today Today 04/13/20 02/26/1909/11/20 04/20 03/19/2020/20 1120/20 08/16/18 Today 20 04/08/20 21 Today Today Today 0917/19 09/17/19 09/17/19 09/17/19 09/17/19 09/17/19 Today 12/17/1803/18/20 08/20/20 08/20/20 Today Today Today Today Today Today Today 17/19 Today Today 17/19 Today Today Today Today Today 08/15/18 Today Today Today 08/16/18 Today 07/30/20 08/20/20 04/11/20 05/18/20 05/18/20 0820/20 05/18/2004/08/20 20/20 20/20 20/20 20/20 20/20 /20/20 09/16/19 02/18/19 //20 07/14/20 07/14/20 07/14/20 07/14/20 07/14/20 07/14/20 07/14/20 04/09/20 09/19/19 09/19/19 01/20/20 01/20/20 04/12/20 04/14/04/14/07/30/20 Today 15/20 Today 20/20 2008/15/20 06/08/19 07/27/20 04/14/20 09/11/19 08/04/20 06/08/19 06/08/20 Today 12/02/19 07/09/19 09/10/19 Today 03/19/20 01/28/20 12/01/19 Today 05/10/20 04/20/20 04/12/20 09/11/19 03/18/20 04/13/20 PROBLEM CURR VISIT ONSET ~03/2020 No Data to Display 06/09/19 03/11/20 08/06/20 Today 12/04/19 04/15/20 08/06/20 12/04/19 06/09/19 05/18/20 05/23/20 07/30/20 09/14/19 04/09/20 09/17/19 04/18/20 07/27/20 12/04/19 12/04/19 Today 03/04/20 Today 05/16/20 04/15/20 11/12/19 02/11/20 Today 04/11/20 08/09/20 05/20/20 08/02/20 06/23/20 07/28/20 07/27/20 05/23/20 04/25/20 Today 05/23/20 07/20/20 08/05/19 04/18/20 12/02/19 08/31/20 05/18/20 05/23/20 05/16/20 06/29/20 Today 06/02/20 04/15/20 07/03/19 No Data to Display Rei Queen II 50, M1970 [facility], Emergency Department ED 06 -Station 1 1.68m 105.233kg BMI: 37.4kg/m? Chest Pain Search Chart ALGY-Difficulty Breathing ALGY-Anaphylaxis ADR-Irritable ALGY-Difficulty Breathing ALGY-Difficulty Breathing ADR-Nausea ALGY-Difficulty Breathing ADR-Diarrhea ADR-Vomiting ADR-Abdominal Pain ADR-Irritable ALGY-Difficulty Breathing NonFormulary Not Included in Conflicts ONSET ~03/2020 1ST CURRENT Today Today 19:13 23:12 *from earlier documentation No Data to Display Today 21:13 Today 21:13 Today 21:13 Today 21:13 Today 21:13 Today 21:13 Today 21:13 Today 21:13 Today 21:13 Today 21:13 Today 21:13 Today 21:13 Today 21:13 Today 21:13 Today 21:13 Today 21:13 Today 21:13 Today 21:13 Today 21:13 Today 21:13 Today 21:13 Today 21:13 Today 21:13 Today 21:13 Today 21:13 Today 21:13 Today 21:13 Today 21:13 Today 21:13 Today 21:13 Today 21:13 Today 21:13 Today 21:13 Today 21:13 Today 21:13 Today 21:13 Today 21:13 Today 21:13 Today 21:13 Today 23:13 Today 23:13 Today 21:13 Today 21:13 Today 21:13 Today 21:13 Today 19:15 Today 19:15 Today 19:15 Today 19:15 Today 19:15 Today 19:15 Today 19:15 Today 19:15 Today 19:15 Today 19:15 Today 19:15 Today 19:15 Today 19:15 Today 19:15 Today 19:15 Today 19:15 Today 19:15 Today 19:15 Rei Queen II 50 M 1970 [place] [address] CT Scan Report Signed Patient: Rei Queen IIUnit #: [id number] : 1970Acct#:[id number] Age/Sex: 50 / MADM Date: 09/05/20 Loc: ERRoom/Bed: Attending Dr: Ordering Provider/Ordering MD: Macario Henderson DO Date of Service: 09/05/20 Procedure(s): CT abdomen pelvis [facility] [id number] Accession Number(s): [id number] Report Number: [id number] PROCEDURE INFORMATION: Exam: CT Abdomen And Pelvis Without Contrast Exam date and time: 09/05/2020 10:05 PM Age: 50 years old Clinical indication: Abdominal pain; Localized; Right lower quadrant (rlq); Prior surgery; Surgery type: Gb, appy, hernia; Patient HX: Lower abd pain x today, n/d; Additional info: Rlq pain TECHNIQUE: Imaging protocol: Computed tomography of the abdomen and pelvis without contrast. Radiation optimization: All CT scans at this facility use at least one of these dose optimization techniques: automated exposure control; mA and/or kV adjustment per patient size (includes targeted exams where dose is matched to clinical indication); or iterative reconstruction. COMPARISON: CT abdomen pelvis wo con [id number] 07/30/2020 11:53 AM RADIATION DOSE METRICS: Total DLP (mGy-cm): 1619.04 FINDINGS: Lungs: Lung bases are clear. Liver: The liver is normal. Gallbladder and bile ducts: The gallbladder is absent. There is no intrahepatic or extrahepatic bile duct dilation. Pancreas: The pancreas is unremarkable. Spleen: The spleen is unremarkable. Adrenal glands: There are benign lipid rich adenomas in both adrenal glands measuring up to 3 cm on the left and up to 2.2 cm on the right. Kidneys and ureters: The kidneys are unremarkable. No hydronephrosis or stones. No ureteral dilation. Stomach and bowel: The stomach is decompressed, preventing meaningful evaluation of wall thickness. The small bowel is nondilated. There is mild descending colonic diverticulosis without evidence of diverticulitis. Appendix: The appendix is not visible. Intraperitoneal space: There is no free air or significant intraperitoneal free fluid. Vasculature: There is moderate aortic atherosclerotic disease. Lymph nodes: There is no lymphadenopathy in the retroperitoneum, mesentery, pelvis or inguinal regions. Urinary bladder: The urinary bladder is unremarkable. Reproductive: The prostate and seminal vesicles are unremarkable. Bones/joints: There is mild degenerative disease in the lumbar spine. The pelvis and proximal femora are intact. Soft tissues: The abdominal wall is intact. CT/CT abdomen pelvis wo con [id number] IMPRESSION: 1. No acute findings. 2. Incidental findings above. COMMENTS: Consistent with the [employer]'s Incidental Findings Committee white paper (J Am Javier Radiol 2017): For any incidental adrenal lesion greater than 1 cm but less than 4 cm classified in this report as benign, likely benign, or containing fat (including classification as an adenoma or myelolipoma), no follow-up imaging is recommended per consensus recommendations based on imaging criteria. Further lab evaluation could be pursued if warranted based on clinical findings. Radiation Dose CTDIVOL = (mGy): DLP = 1619.04 (mGy-cm) Dictated By:Jeremías Neumann MD Signed By:Jeremías Neumannigned Date/Time:09/05/20 4917 Discharge Plan Discharge Patient Disposition: Home Clinical Impression: Abdominal pain in male, Diverticulosis of colon without diverticulitis Chest pain Qualifiers: Chest pain type: unspecified Qualified Code(s): R07.9 - Chest pain, unspecified Condition: Stable Prescriptions: New ciprofloxacin HCl 500 mg tablet 500 mg PO BID Qty: 10 RF: 0 Flagyl 500 mg tablet 500 mg PO BID Qty: 10 RF: 0 hydrocodone-acetaminophen 5-325 mg tablet 1 tab PO Q6H Qty: 12 RF: 0 No Action apixaban 5 mg tablet 5 mg PO Q12H Qty: 60 RF: 3 (DME) diabetic shoes Qty: 1 RF: 0 multivitamin [Daily Multi-Vitamin] Tablet 1 tab PO DAILY@0600 RF: 0 levothyroxine 88 mcg capsule 88 mcg PO DAILY@0600 RF: 0 metoprolol tartrate 50 mg tablet 50 mg PO BID@0600,1800 RF: 0 metformin 500 mg tablet 500 mg PO BID@0600,1800 RF: 0 Hold Instructions: hold until instructed to resume, ask at follow up, held due to acute kidney injury Trulicity 0.75 mg/0.5 mL pen injector 0.75 mg SUBCUT Q7D RF: 0 aspirin 81 mg tablet,delayed release (DR/EC) 81 mg PO DAILY@0600 RF: 0 (DME) Elizabeth See Rx Instructions .Route .MEDSUPPLY Qty: 1 RF: 0 nitroglycerin [Nitrostat] 0.4 mg tablet, sublingual 0.4 mg SUBLINGUAL Q5M PRN (Reason: Chest Pain) Qty: 30 RF: 2 potassium chloride 20 mEq tablet extended release 20 meq PO .COMPLEX Qty: 45 RF: 3 cyclobenzaprine 10 mg tablet 10 mg PO TID PRN (Reason: MUSCLE SPASMS) RF: 0 promethazine 25 mg tablet 25 mg PO TID PRN (Reason: nausea and vomiting) Qty: 20 RF: 0 citalopram 20 mg Tablet 20 mg PO DAILY@0600 RF: 0 amlodipine 10 mg tablet 10 mg PO DAILY@0600 RF: 0 Humalog U-100 Insulin 100 unit/mL solution See Rx Instructions .ROUTE .COMPLEX RF: 0 furosemide 40 mg tablet 40 mg PO BID@0600,1800 RF: 0 atorvastatin 40 mg tablet 40 mg PO DAILY@0600 RF: 0 isosorbide mononitrate 30 mg tablet extended release 24 hr 30 mg PO BID@0600,1800 RF: 0 ranolazine 500 mg tablet extended release 12 hr 500 mg PO BID@0600,1800 RF: 0 Discharge Orders: Discharge ED (Routine); Ordered 09/05/20 Ordered By: Subhash Ta Referrals: Quique Reese MD [Physician] - (follow up in next 1-2 weeks for evaluation of blood in your stool.) Kp Montanez DO [Primary Care Provider] - Discharge Diet: Advance as tolerated Discharge Activity: Resume usual activity Patient Instructions: Chest Pain (ED), Rectal Bleeding (ED), Abdominal Pain (ED) Coding Level of Care Code ED Dopeman for Chg Fwd Exam Comprehensive
[2020-09-05 21:26] LABS: Basophils # 0.1 10^3/uL (0.0-0.1); Basophils % 0.9 %; Eosinophils # 0.2 10^3/uL (0.0-0.8); Hematocrit 36.1 % (42.0-52.0); Hemoglobin 11.9 g/dL (11.7-16.6); Lymphocytes # 2.2 10^3/uL (0.8-4.8); Lymphocytes % 20.6 %; Mean Corpuscular Hemoglobin 28.3 pg (28.0-34.0); Mean Platelet Volume 9.4 fL (7.4-10.4); Monocytes % 8.9 %; Neutrophils # 7.22 10^3/uL (1.8-7.7); Neutrophils % 67.3 %; Nucleated Red Blood Cells % 0 %; Platelet Count 306 10^3/cmm (130-400); Red Cell Distribution Width 14.6 % (12.1-15.1); White Blood Count 10.7 10^3/uL (4.0-10.0)
[2020-09-05 21:31] VITALS: BP 158/91; PULSE 85
--- NOTE | 2020-09-05 21:32 | PC.NURSE ---
Dr. Henderson performed rectal exam and hemoccult with a negative result.
[2020-09-05 21:38] LABS: Chloride 96 mmol/L (98-107); Potassium 4.2 mmol/L (3.5-5.1); Sodium 132 mmol/L (136-145)
[2020-09-05 21:43] LABS: Lactate (Lactic Acid level) 0.6 mmol/L (0.5-2.2)
[2020-09-05 21:44] LABS: Troponin(5th) Baseline 31 ng/L (0-15)
[2020-09-05 21:45] LABS: Add Urine Microscopic? YES; Bilirubin Urine Neg (Negative); Blood Urine 2+ (Negative); Glucose Urine UA Norm (Normal); Ketones Urine Negative (Negative); Leukocyte Esterase Urine Negative (Negative); Nitrate Urine Negative (Negative); Protein Urine 3+ (Negative); Specific Gravity, Urine 1.005 (1.005-1.030); Urine Appearance Clear (CLEAR); Urine Color Yellow (Yellow); Urobilinogen Urine Norm (Negative); pH Urine 5 (5-7)
[2020-09-05 21:46] LABS: RBC Urine 0-4 /hpf (0-2); Squamous Epithelial Cell Urine 0-4 /hpf (0-5); WBC Urine 0-4 /hpf (0-5)
[2020-09-05 21:47] LABS: Add Urine Culture? No; Hyaline Casts Urine 0-4 /lpf
[2020-09-05 21:49] VITALS: BP 158/91; PULSE 81
[2020-09-05 21:56] LABS: Alanine Aminotransferase 20 U/L (0-41); Albumin Level 3.9 g/dL (3.5-5.2); Alkaline Phosphatase 140 IU/L (40-130); Anion Gap 15.2 (5-19); Aspartate Amino Transferase 17 U/L (0-40); Blood Urea Nitrogen 39 mg/dL (6-20); Calcium 8.2 mg/dL (8.5-10.5); Carbon Dioxide 25 mmol/L (22-29); Globulin 2.8 g/dL (1.3-4.6); Glomerular Filtration Rate 31.6 mL/min (90-130); Glucose 162 mg/dL (65-115); Lipase 58 U/L (13-60); Osmolality Calculated 287 mOsm/kg (285-295); Total Bilirubin 0.6 mg/dL (0.15-1.2); Total Protein 6.7 g/dL (6.6-8.7)
--- NOTE | 2020-09-05 22:04 | CTR_ITS ---
PROCEDURE INFORMATION: Exam: CT Abdomen And Pelvis Without Contrast Exam date and time: 09/05/2020 10:05 PM Age: 50 years old Clinical indication: Abdominal pain; Localized; Right lower quadrant (rlq); Prior surgery; Surgery type: Gb, appy, hernia; Patient HX: Lower abd pain x today, n/d; Additional info: Rlq pain TECHNIQUE: Imaging protocol: Computed tomography of the abdomen and pelvis without contrast. Radiation optimization: All CT scans at this facility use at least one of these dose optimization techniques: automated exposure control; mA and/or kV adjustment per patient size (includes targeted exams where dose is matched to clinical indication); or iterative reconstruction. COMPARISON: CT abdomen pelvis wo con [id number] 07/30/2020 11:53 AM RADIATION DOSE METRICS: Total DLP (mGy-cm): 1619.04 FINDINGS: Lungs: Lung bases are clear. Liver: The liver is normal. Gallbladder and bile ducts: The gallbladder is absent. There is no intrahepatic or extrahepatic bile duct dilation. Pancreas: The pancreas is unremarkable. Spleen: The spleen is unremarkable. Adrenal glands: There are benign lipid rich adenomas in both adrenal glands measuring up to 3 cm on the left and up to 2.2 cm on the right. Kidneys and ureters: The kidneys are unremarkable. No hydronephrosis or stones. No ureteral dilation. Stomach and bowel: The stomach is decompressed, preventing meaningful evaluation of wall thickness. The small bowel is nondilated. There is mild descending colonic diverticulosis without evidence of diverticulitis. Appendix: The appendix is not visible. Intraperitoneal space: There is no free air or significant intraperitoneal free fluid. Vasculature: There is moderate aortic atherosclerotic disease. Lymph nodes: There is no lymphadenopathy in the retroperitoneum, mesentery, pelvis or inguinal regions. Urinary bladder: The urinary bladder is unremarkable. Reproductive: The prostate and seminal vesicles are unremarkable. Bones/joints: There is mild degenerative disease in the lumbar spine. The pelvis and proximal femora are intact. Soft tissues: The abdominal wall is intact. CT/CT abdomen pelvis wo con [id number] IMPRESSION: 1. No acute findings. 2. Incidental findings above. COMMENTS: Consistent with the [employer]'s Incidental Findings Committee white paper (J Am Javier Radiol 2017): For any incidental adrenal lesion greater than 1 cm but less than 4 cm classified in this report as benign, likely benign, or containing fat (including classification as an adenoma or myelolipoma), no follow-up imaging is recommended per consensus recommendations based on imaging criteria. Further lab evaluation could be pursued if warranted based on clinical findings. Radiation Dose CTDIVOL = (mGy): DLP = 1619.04 (mGy-cm)
[2020-09-05] MEDS: promethazine 25 mg/mL SDV 1 mL 12.5 MG IM (22:33)
[2020-09-05] MEDS: fentaNYL 50 mcg/mL INJ 2mL IVP (22:33)
[2020-09-05 22:36] VITALS: BP 168/94; PULSE 82; RESP 16; O2SAT 96
[2020-09-05 23:12] VITALS: BP 158/88; PULSE 81; RESP 16; O2SAT 92
[2020-09-05 23:39] LABS: Troponin 5 2HR 29.91 ng/L (0-15)
[2020-09-05 23:43] LABS: Troponin 5 2HR Delta -1.09 ABS# (0-10)
[2020-09-06 00:12] VITALS: BP 165/81; PULSE 82; RESP 17; O2SAT 94
== END 2020-09-06 00:11 | disposition home or self-care (01) ==
PROVIDERS: Nurse Practitioner Family; Emergency Provider Family Medicine; PCP Internal Medicine
DX: R07.9 Chest pain, unspecified (principal); K57.30 Diverticulosis of large intestine without perforation or abscess without bleeding; Z79.82 Long term (current) use of aspirin; Z79.4 Long term (current) use of insulin; I25.10 Atherosclerotic heart disease of native coronary artery without angina pectoris; I11.0 Hypertensive heart disease with heart failure; I50.22 Chronic systolic (congestive) heart failure; E11.9 Type 2 diabetes mellitus without complications; I25.2 Old myocardial infarction; E78.5 Hyperlipidemia, unspecified
CPT/HCPCS: 71045; 74018; 74176; 80053; 81001; 83605; 83690; 84484; 85025; 93005; 96372; 96374; 99284; J2550; J3010

== ENCOUNTER 2020-09-07 14:34 | Outpatient (CLI) | payer MEDICARE, MEDICAID, SELFPAY ==
[2020-09-07 16:03] VITALS: BP 152/88; PULSE 76; RESP 16; TEMP 36.6; O2SAT 97; BMI 38.2
[2020-09-07 16:10] LABS: Basophils # 0.1 10^3/uL (0.0-0.1); Basophils % 1.3 %; Eosinophils # 0.3 10^3/uL (0.0-0.8); Eosinophils % 4.7 %; Hematocrit 33.8 % (42.0-52.0); Hemoglobin 10.8 g/dL (11.7-16.6); Lymphocytes # 1.7 10^3/uL (0.8-4.8); Lymphocytes % 23.7 %; Mean Corpuscular Hemoglobin 28.1 pg (28.0-34.0); Mean Corpuscular Volume 87.8 fL (80-94); Mean Platelet Volume 9.3 fL (7.4-10.4); Monocytes # 0.8 10^3/uL (0.2-0.9); Monocytes % 11.3 %; Neutrophils # 4.22 10^3/uL (1.8-7.7); Neutrophils % 58.7 %; Nucleated Red Blood Cells % 0 %; Platelet Count 265 10^3/cmm (130-400); Red Blood Count 3.85 10^6/uL (4.1-5.3); Red Cell Distribution Width 14.6 % (12.1-15.1); White Blood Count 7.2 10^3/uL (4.0-10.0)
== END 2020-09-07 14:35 | disposition home or self-care (01) ==
LOC: LAB 14:43 → GILAB 14:45 → OPS 15:02
PROVIDERS: PCP Internal Medicine; Visit Provider Internal Medicine
DX: K92.1 Melena (principal)
CPT/HCPCS: 36591; 85025

== ENCOUNTER 2020-09-12 10:11 | Outpatient (CLI) | payer MEDICARE, MEDICAID, SELFPAY ==
[2020-09-12 10:30] VITALS: BP 127/80; PULSE 72; RESP 18; TEMP 36.3; O2SAT 97
[2020-09-12 10:49] LABS: Basophils # 0.1 10^3/uL (0.0-0.1); Basophils % 1.2 %; Eosinophils # 0.3 10^3/uL (0.0-0.8); Eosinophils % 3.2 %; Hemoglobin 11.2 g/dL (11.7-16.6); Lymphocytes # 1.6 10^3/uL (0.8-4.8); Lymphocytes % 20.2 %; Mean Corpuscular Hemoglobin 28.3 pg (28.0-34.0); Mean Corpuscular Volume 88.4 fL (80-94); Mean Platelet Volume 9.4 fL (7.4-10.4); Monocytes # 0.7 10^3/uL (0.2-0.9); Monocytes % 8.4 %; Neutrophils # 5.41 10^3/uL (1.8-7.7); Neutrophils % 66.6 %; Nucleated Red Blood Cells % 0 %; Platelet Count 318 10^3/cmm (130-400); Red Blood Count 3.96 10^6/uL (4.1-5.3); Red Cell Distribution Width 15.1 % (12.1-15.1); White Blood Count 8.1 10^3/uL (4.0-10.0)
== END 2020-09-12 10:12 ==
PROVIDERS: PCP Internal Medicine; Visit Provider Internal Medicine
DX: K92.1 Melena (principal)
CPT/HCPCS: 36591; 85025

== ENCOUNTER 2020-09-25 16:02 | Emergency (ER) | payer MEDICARE, MEDICAID, SELFPAY ==
[2020-09-25 16:07] VITALS: BP 146/86; PULSE 75; RESP 18; TEMP 36.8; O2SAT 98; BMI 37.1
--- NOTE | 2020-09-25 16:58 | XRR_ITS ---
PROCEDURE INFORMATION: Exam: XR Chest Exam date and time: 09/25/2020 5:00 PM Age: 50 years old Clinical indication: Chest pain; Prior surgery; Additional info: Cp, chf TECHNIQUE: Imaging protocol: XR of the chest. Views: 1 view. COMPARISON: CR XR chest 1V portable [id number] 09/05/2020 7:47 PM FINDINGS: Tubes, catheters and devices: Left-sided infusion port is unchanged. Lungs: Calcified granuloma left lung apex. Bibasilar atelectasis. No consolidative pulmonary infiltrate noted. Pleural spaces: Unremarkable. No pleural effusion. No pneumothorax. Heart/Mediastinum: No cardiomegaly. Bones/joints: Median sternotomy noted. XR/XR chest 1V portable [id number] IMPRESSION: 1. Bibasilar atelectasis. No consolidative pulmonary infiltrate noted. 2. There is no significant change from the prior examination.
--- NOTE | 2020-09-25 16:58 | ECG_ITS ---
[facility] Test Date: 2020-09-25 Pat Name: Rei Queen Department: Room: Gender: Male Pals Nurse: : 1970 Requested By: Vinita Cowan Order Number: [id number] Becky MD: Tory Lopez M.D. Measurements Intervals [place] Rate: 74 P: 23 [place]: 182 QRS: 26 QRSD: 102 T: 60 QT: 411 QTc: 457 Interpretive Statements SINUS RHYTHM POSSIBLE ANTERIOR MYOCARDIAL INFARCTION , PROBABLY OLD [30 ms Q WAVE IN V3/V4, OR R < 0.2 mV IN V4] Compared to ECG 09/05/2020 21:39:58 Ventricular premature complex(es) no longer present Myocardial infarct finding still present Electronically Signed On 09-27-2020 9:34:11 CDT by Tory Lopez M.D. [id number]
--- NOTE | 2020-09-25 17:17 | USR_ITS ---
PROCEDURE INFORMATION: Exam: US Scrotum Exam date and time: 09/25/2020 5:52 PM Age: 50 years old Clinical indication: Groin pain; Prior surgery; Surgery date: 6+ months; Surgery type: Lt orchiectomy. Bilateral hernia repair; Additional info: Right testicular pain, hernia HX TECHNIQUE: Imaging protocol: Real-time ultrasound of the scrotum and contents with color Doppler and image documentation. COMPARISON: US scrotum [id number] 03/18/2020 5:13 AM FINDINGS: Right testicle: Right testis measures 4.2 x 2.6 x 3.0 cm. The testis is normal in echotexture. No focal testicular lesion is demonstrated. Appropriate blood flow documented by Doppler. Left testicle: Status post left orchiectomy. Epididymides: Right epididymis appears slightly enlarged. Blood flow is documented within the epididymal head by color Doppler. Scrotum: Unremarkable. No hydrocele. No varicocele. US/US scrotum [id number] IMPRESSION: 1. Right epididymis appears slightly enlarged. Blood flow is documented within the epididymal head by color Doppler. Findings are equivocal but may indicate mild epididymitis. 2. Status post left orchiectomy.
--- NOTE | 2020-09-25 17:26 | W.ED.GENADLT ---
HPI - General Adult General: Chief complaint: General Medical Stated complaint: CHEST, AB, AND GROIN PAIN Time Seen by Provider: 09/25/20 16:59 History of Present Illness: HPI narrative: 50-year-old male presents with chronic abdominal pain that has been going on for several months it is in his right lower quadrant the reason why he came in today because now it is radiating into his testicle he is having testicular pain. He has had bilateral inguinal mesh hernia repair several years ago in [place]. He denies any change in his bowel movements the pain is so severe it causes him to be nauseated but he is not having any vomiting. He denies any urine complaints or changes. Denies any masses or nodules that he is aware of in his groin or testicular area. Patient has chronic chest pain he says it similar in nature its on the left side of his chest is a pressure or tightness he has it on a daily basis and it radiates to his left arm and jaw. He took 2 nitro that did seem to help the pain he says he is not as concerned about his chest pain as he is this right inguinal area. He denies shortness of breath he is taking his blood thinners from a recent brachial/subclavian clot from a port. Denies any changes in shortness of breath denies any association with positions. Review of Systems Narrative: General: denies fatigue, fever or chills HEENT: denies ear pain, denies nasal congestion, denies vision changes, denies sore throat Neck: denies masses or pain Resp: denies cough, denies shortness of breath, denies pleuritic pain Cardio: See HPI GI: See HPI : denies hematuria, denies dysuria Neuro: denies headache, denies dizziness, denies motor or sensory changes Musculoskeletal: denies pain, denies swelling Skin: denies rashes Psych: denies SI or HI Endocrine: denies thyroid symptoms, denies lymphadenopathy all over ROS reviewed and patient denies PFSH ED PFSH: Medical History Anemia Atherosclerotic heart disease of [place] coronary artery with other forms of angina pectoris hx of CAD with prior stenting of proximal LAD, LCx, RCA Chronic kidney disease -baseline Cr appears to be around 1.5 Chronic systolic heart failure EF=47%, diffuse LV hypokinesis, mildly increased LA size Depression Diabetes A1c-7.6 (08/2019) Foot drop, left H/O acute myocardial infarction H/O deep venous thrombosis developed compartment syndrome Hyperlipidemia Hypertension Hypothyroidism Ischemic cardiomyopathy Obesity (BMI 30-39.9) Osteoarthritis of spine Surgical History H/O colonoscopy 08/2015 H/O esophagogastroduodenoscopy 08/2015 H/O removal of testicle left H/O skin graft H/O vasectomy History of appendectomy History of coronary artery stent placement 5x History of excision of mass 06/08/2019: Subcutaneous mass on back History of inguinal hernia repair, bilateral 2000 History of removal of Port-a-Cath Hx of cholecystectomy Port-A-Cath in place Family History Grandfather Cancer skin cancer Parkinson disease Brother Hypertension Father Heart disease Mother Hypertension Stroke Aneurysm Grandmother Aneurysm Other Crohn disease Denies family history of Anesthesia complication Bleeding disorder Social History Smoking and tobacco status: never smoked Alcohol intake: former Former alcohol use details: Only holidays Lives independently: Yes Household members: significant other Marital status: Single Current occupational status: disabled History of recent travel: No Physical Exam Narrative: EXAM NARRATIVE: General: a/o/3, no distress Head: atraumatic HEENT: normal eyes, normal conjunctiva, normal hearing, normal external nose, normal mouth, mucous membranes moist Neck: FROM, trachea midline Chest: normal expansion, no gross deformities Resp: normal speech, no retractions, no accessory muscle use, CTA bilaterally Cardio: regular rate and rhythm and no murmur, no peripheral edema, normal peripheral pulses GI: soft, flat non tender, no guarding normal BS, no masses it is soft no skin discoloration no obvious hernia : Circumcised penis left testes absent scrotal sac is present his right scrotum is mildly tender he has tenderness up in his inguinal canal but there is no bulge no appreciated hernia area is definitely soft Musculoskeletal: FROM, no pain or gross deformities Neuro: a/o appropriate for age, no gross motor or sensory deficits, CN II-XII grossly intact, normal coordination, normal speech Skin: no rashes Psych: cooperative, normal mood and effect Course Vital Signs: Vital signs: Vital Signs Temperature 98.3 F 09/25/20 16:07 Pulse Rate 72 09/25/20 18:51 Respiratory Rate 17 09/25/20 18:51 Blood Pressure 147/79 09/25/20 18:51 Pulse Oximetry 96 09/25/20 18:51 MDM - General Adult MDM Narrative: Medical decision making narrative: Patient has been here several times for similar abdominal pain last year he is here on 03/18/20, 07/2019, 07/30/20, 09/05/20 and has had negative CAT scans with all of those visits. He is also had several other ultrasounds. Patient is concerned since he has had bilateral inguinal surgery 20 years ago and had to have a revision on the left he is concerned that on the right of the possibility of mesh breaking down. He did have testicular pain I will obtain an ultrasound to rule out any type of torsions or findings however explained to him cannot determine mash validity and he will need to see general surgery. Patient denies any changes in his chest pain his troponin is stable from what it always is he is still taking his Eliquis. He is in bed with a flat affect he did request nausea and some pain medication which was given to him discussed with him he would need to follow-up he request Dr. Lopez for general surgery we can put in a referral but he will need to fall call for follow-up Medical Records: Attestation: I reviewed the patient's medical records. Lab Data: Attestation: I reviewed the patient's lab results. Labs: Lab Results 09/25/20 09/25/20 09/25/20 Range/Units 17:50 17:50 17:50 WBC 8.5 (4.0-10.0) 10^3/ uL RBC 3.91 L (4.1-5.3) 10^6/u L Hgb 11.1 L (11.7-16.6) g/dL Hct 33.7 L (42.0-52.0) % MCV 86.2 (80-94) fL MCH 28.4 (28.0-34.0) pg MCHC 32.9 (30.0-36.0) g/dL RDW 15.2 H (12.1-15.1) % Plt Count 324 (130-400) 10^3/c mm MPV 9.9 (7.4-10.4) fL Neut % (Auto) 62.5 % Lymph % (Auto) 24.1 % Borden % (Auto) 9.0 % Eos % (Auto) 2.8 % Baso % (Auto) 1.2 % Neut # (Auto) 5.29 (1.8-7.7) 10^3/u L Lymph # (Auto) 2.0 (0.8-4.8) 10^3/u L Borden # (Auto) 0.8 (0.2-0.9) 10^3/u L Eos # (Auto) 0.2 (0.0-0.8) 10^3/u L Baso # (Auto) 0.1 (0.0-0.1) 10^3/u L Nucleated RBC % (a uto) 0 % Nucleated RBCs # 0.0 /100WBC Sodium 136 (136-145) mmol/L Potassium 4.2 (3.5-5.1) mmol/L Chloride 100 (98-107) mmol/L Carbon Dioxide 24 (22-29) mmol/L Anion Gap 16.2 (5-19) BUN 36 H (6-20) mg/dL Creatinine 2.3 H (0.7-1.2) mg/dL GFR Calculation 30.0 L (90-130) mL/min Glucose 144 H (65-115) mg/dL Calculated Osmolal ity 293 (285-295) mOsm/k g Calcium 7.2 L (8.5-10.5) mg/dL Total Bilirubin 0.5 (0.15-1.2) mg/dL AST 19 (0-40) U/L ALT 21 (0-41) U/L Alkaline Phosphata se 111 (40-130) IU/L Troponin T Baselin e 34 H (0-15) ng/L Total Protein 5.4 L (6.6-8.7) g/dL Albumin 3.4 L (3.5-5.2) g/dL Globulin 2.0 (1.3-4.6) g/dL EKG Data^: EKG 1: EKG interpretation date: 09/25/20 EKG interpretation time: 17:12 Prior EKG tracings: available for review Interpretation: NSR rate 74, no acute ST elevation or changes Computer generated interpretation: Chest X-Ray 09/25/20 16:58 IMPRESSION: 1. Bibasilar atelectasis. No consolidative pulmonary infiltrate noted. 2. There is no significant change from the prior examination. Scrotum Ultrasound 09/25/20 17:17 IMPRESSION: 1. Right epididymis appears slightly enlarged. Blood flow is documented within the epididymal head by color Doppler. Findings are equivocal but may indicate mild epididymitis. 2. Status post left orchiectomy. Discharge Plan Discharge Patient Disposition: Home Clinical Impression: Chronic chest pain Abdominal pain Qualifiers: Abdominal location: right lower quadrant Qualified Code(s): R10.31 - Right lower quadrant pain Condition: Stable Prescriptions: No Action (DME) diabetic shoes Qty: 1 RF: 0 multivitamin [Daily Multi-Vitamin] Tablet 1 tab PO QPM RF: 0 levothyroxine 88 mcg capsule 88 mcg PO DAILY@0600 RF: 0 metoprolol tartrate 50 mg tablet 50 mg PO BID@0600,1800 RF: 0 Trulicity 0.75 mg/0.5 mL pen injector 0.75 mg SUBCUT Q7D RF: 0 aspirin 81 mg tablet,delayed release (DR/EC) 81 mg PO DAILY@0600 RF: 0 (DME) Elizabeth See Rx Instructions .Route .MEDSUPPLY Qty: 1 RF: 0 nitroglycerin [Nitrostat] 0.4 mg tablet, sublingual 0.4 mg SUBLINGUAL Q5M PRN (Reason: Chest Pain) Qty: 30 RF: 2 potassium chloride 20 mEq tablet extended release 20 meq PO .COMPLEX Qty: 45 RF: 3 apixaban 5 mg tablet 5 mg PO Q12H Qty: 60 RF: 3 Humalog U-100 Insulin 100 unit/mL solution See Rx Instructions .ROUTE .COMPLEX RF: 0 metformin 500 mg tablet extended release 24 hr 500 mg PO BID@18 RF: 0 Tylenol Extra Strength 500 mg Tablet 1,000 mg PO PRN RF: 0 promethazine 25 mg tablet 25 mg PO Q6H PRN (Reason: nausea and vomiting) RF: 0 cyclobenzaprine 10 mg tablet 10 mg PO TID PRN (Reason: MUSCLE SPASMS) RF: 0 citalopram 20 mg Tablet 20 mg PO QPM RF: 0 amlodipine 10 mg tablet 10 mg PO DAILY@0600 RF: 0 furosemide 40 mg tablet 40 mg PO BID@0600,1800 RF: 0 atorvastatin 40 mg tablet 40 mg PO DAILY@0600 RF: 0 isosorbide mononitrate 30 mg tablet extended release 24 hr 30 mg PO BID@0600,1800 RF: 0 ranolazine 500 mg tablet extended release 12 hr 500 mg PO BID@0600,1800 RF: 0 Discharge Orders: Discharge ED (Routine); Ordered 09/25/20 Ordered By: Vinita Wilson Referrals: Juventino Lopez MD [Physician] - (Right inguinal pain, post hernia surgery 20 years ago.) Kp Montanez DO [Primary Care Provider] - Patient Instructions: Abdominal Pain (ED), Opioid Safety Activity Restrictions/Additional Instructions: Recommend you call general surgery for follow-up you may also want to speak to your provider and discuss with him referrals. Follow-up with cardiology return if worsening of symptoms fevers vomiting diarrhea if you have any bulges or areas that are hard in your groin area Call Dr. Lopez for follow-up Thank you for choosing [facility] for your healthcare needs today. Please realize this is an emergency room and that we are providing you with a medical screening exam and this may not be complete and all inclusive of all the testing and or work up that you may need to determine your ailment or severity of your illness. It is very important that you follow up as instructed or that you return to the Emergency Department should you have concerns or if your condition changes or worsens in any way. Coding Level of Care Code ED Cinder Crusher Operator for Aaron Irene
[2020-09-25 18:11] LABS: Basophils # 0.1 10^3/uL (0.0-0.1); Basophils % 1.2 %; Eosinophils # 0.2 10^3/uL (0.0-0.8); Eosinophils % 2.8 %; Hematocrit 33.7 % (42.0-52.0); Hemoglobin 11.1 g/dL (11.7-16.6); Lymphocytes % 24.1 %; Mean Corpuscular HGB Conc 32.9 g/dL (30.0-36.0); Mean Corpuscular Hemoglobin 28.4 pg (28.0-34.0); Mean Corpuscular Volume 86.2 fL (80-94); Mean Platelet Volume 9.9 fL (7.4-10.4); Monocytes # 0.8 10^3/uL (0.2-0.9); Neutrophils # 5.29 10^3/uL (1.8-7.7); Neutrophils % 62.5 %; Nucleated Red Blood Cells % 0 %; Platelet Count 324 10^3/cmm (130-400); Red Blood Count 3.91 10^6/uL (4.1-5.3); Red Cell Distribution Width 15.2 % (12.1-15.1); White Blood Count 8.5 10^3/uL (4.0-10.0)
[2020-09-25 18:29] LABS: Alanine Aminotransferase 21 U/L (0-41); Albumin Level 3.4 g/dL (3.5-5.2); Alkaline Phosphatase 111 IU/L (40-130); Anion Gap 16.2 (5-19); Aspartate Amino Transferase 19 U/L (0-40); Blood Urea Nitrogen 36 mg/dL (6-20); Calcium 7.2 mg/dL (8.5-10.5); Carbon Dioxide 24 mmol/L (22-29); Chloride 100 mmol/L (98-107); Glucose 144 mg/dL (65-115); Osmolality Calculated 293 mOsm/kg (285-295); Potassium 4.2 mmol/L (3.5-5.1); Sodium 136 mmol/L (136-145); Total Bilirubin 0.5 mg/dL (0.15-1.2); Total Protein 5.4 g/dL (6.6-8.7)
[2020-09-25 18:30] LABS: Troponin(5th) Baseline 34 ng/L (0-15)
[2020-09-25 18:51] VITALS: BP 147/79; PULSE 72; RESP 17; O2SAT 96
[2020-09-25] MEDS: promethazine 25 mg Tablet PO (18:53)
[2020-09-25] MEDS: HYDROmorphone 1 mg/mL INJ 1 mL IVP (18:55)
[2020-09-25 19:19] LABS: Troponin 5 2HR 32.65 ng/L (0-15)
[2020-09-25 19:26] VITALS: BP 144/77; PULSE 71; RESP 20; O2SAT 94
[2020-09-25 19:26] LABS: Troponin 5 2HR Delta -1.35 ABS# (0-10)
== END 2020-09-25 19:27 | disposition home or self-care (01) ==
PROVIDERS: Emergency Provider Emergency Medicine; PCP Internal Medicine
DX: G89.29 Other chronic pain (principal); R07.9 Chest pain, unspecified; R10.31 Right lower quadrant pain; Z79.82 Long term (current) use of aspirin; Z79.4 Long term (current) use of insulin
CPT/HCPCS: 71045; 76870; 80053; 84484; 85025; 93005; 96374; 99284; J1170; Q0169

== ENCOUNTER → 2020-10-05 12:13 | Day surgery (SDC) | payer MEDICARE, MEDICAID, SELFPAY ==
[2020-10-05 12:40] VITALS: BP 134/73; PULSE 77; RESP 18; TEMP 36.6; O2SAT 95
--- NOTE | 2020-10-05 12:45 | PC.NURSE ---
Pt to GI lab for port flush. Site to left chest accessed with 22 gauge Monae needle and flushed with 20 mL NS. Good blood return noted. Pt tolerated well.
== END ==
PROVIDERS: PCP Internal Medicine; Visit Provider Internal Medicine
DX: Z45.2 Encounter for adjustment and management of vascular access device (principal)
CPT/HCPCS: 96368; 96523

== ENCOUNTER 2020-10-12 14:38 | Outpatient (CLI) | payer MEDICARE, MEDICAID, SELFPAY ==
--- NOTE | 2020-10-12 15:45 | USCV_ITS ---
Rei Queen Age: 50 Gender: M : 1970 Exam Date: 10/12/2020 15:13 Ordering Phys: Tory Lopez MD ([email or web address]) Technologist: Karla Cline [place]am [place] [facility] [place]: ACUTE EMBOLISM HISTORY: Upper extremity swelling. PROCEDURES: Venous duplex imaging was performed in only the left upper extremity. The following venous structures were evaluated: internal jugular vein, subclavian vein, axillary vein, and brachial veins. In addition, the basilic vein, cephalic vein, radial vein, and ulnar vein. FINDINGS: Normal 2-D, color Doppler and phasicity noted in the left upper extremity venous system extending from the left internal jugular vein through the main forearm. No thrombosis or occlusion noted. CONCLUSIONS No left upper extremity DVT. Dr. Tarsha Farmer DO (Electronically Signed) Final Date: 12 Oct 2020 16:01 S
[2020-10-12 16:35] LABS: Basophils # 0.1 10^3/uL (0.0-0.1); Basophils % 1.2 %; Eosinophils # 0.2 10^3/uL (0.0-0.8); Eosinophils % 2.5 %; Hematocrit 37.8 % (42.0-52.0); Hemoglobin 12.3 g/dL (11.7-16.6); Lymphocytes # 1.8 10^3/uL (0.8-4.8); Lymphocytes % 26.1 %; Mean Corpuscular HGB Conc 32.5 g/dL (30.0-36.0); Mean Corpuscular Hemoglobin 28.5 pg (28.0-34.0); Mean Corpuscular Volume 87.5 fL (80-94); Mean Platelet Volume 9.9 fL (7.4-10.4); Monocytes # 0.7 10^3/uL (0.2-0.9); Monocytes % 9.8 %; Neutrophils % 60.1 %; Nucleated Red Blood Cells % 0 %; Platelet Count 328 10^3/cmm (130-400); Red Blood Count 4.32 10^6/uL (4.1-5.3); Red Cell Distribution Width 15.6 % (12.1-15.1); White Blood Count 6.8 10^3/uL (4.0-10.0)
[2020-10-12 16:39] LABS: Parathyroid Hormone 40.1 pg/mL (15-65)
[2020-10-12 16:40] LABS: Anion Gap 19.5 (5-19); Blood Urea Nitrogen 38 mg/dL (6-20); Calcium 9.2 mg/dL (8.5-10.5); Carbon Dioxide 22 mmol/L (22-29); Chloride 99 mmol/L (98-107); Glomerular Filtration Rate 28.6 mL/min (90-130); Glucose 113 mg/dL (65-115); Phosphorus 3.9 mg/dL (2.5-4.5); Potassium 4.5 mmol/L (3.5-5.1); Sodium 136 mmol/L (136-145)
[2020-10-12 16:41] LABS: Calcium 9.2 mg/dL (8.5-10.5)
[2020-10-12 16:47] LABS: 25 Hydroxy Vitamin D 25 ng/mL (30-100)
[2020-10-12 17:08] LABS: Creatinine Urine, Random 74 mg/dL (39-259)
[2020-10-12 17:27] LABS: Microalbum Creatinine Ratio Ur 1635 mg/dL (0-20); Microalbumin Random Urine 121 ug/dL (0-20)
== END 2020-10-12 14:39 | disposition home or self-care (01) ==
PROVIDERS: PCP Internal Medicine; Referring Provider Registered Nurse; Visit Provider Internal Medicine Cardiovascular Disease
DX: I82.622 Acute embolism and thrombosis of deep veins of left upper extremity (principal); N18.31 Chronic kidney disease, stage 3a; M79.89 Other specified soft tissue disorders
CPT/HCPCS: 80069; 82044; 82306; 82310; 83970; 85025; 93971

== ENCOUNTER 2020-10-18 08:47 | Outpatient (RCR) | payer SELFPAY | END 2020-11-16 23:59 | disposition home or self-care (01) | LOC: CR 08:47 | PROVIDERS: PCP Internal Medicine; Referring Provider Internal Medicine Cardiovascular Disease; Visit Provider Internal Medicine Cardiovascular Disease | DX: Z95.5 Presence of coronary angioplasty implant and graft (principal) ==

== ENCOUNTER → 2020-11-01 08:23 | Outpatient (BNVA) | payer MEDICARE, MEDICAID, SELFPAY | PROVIDERS: PCP Internal Medicine; Visit Provider Psychiatry & Neurology Psychiatry | DX: F33.2 Major depressive disorder, recurrent severe without psychotic features (principal); F10.21 Alcohol dependence, in remission | CPT/HCPCS: 99204 ==

== ENCOUNTER → 2020-11-04 06:39 | Day surgery (SDC) | payer MEDICARE, MEDICAID, SELFPAY ==
[2020-11-04 07:34] VITALS: BP 135/72; PULSE 75; RESP 18; TEMP 36.6; O2SAT 97
== END ==
PROVIDERS: PCP Internal Medicine; Visit Provider Internal Medicine
DX: N18.31 Chronic kidney disease, stage 3a (principal)
CPT/HCPCS: 96368; 96523

== ENCOUNTER 2020-11-09 12:54 | Outpatient (CLI) | payer MEDICARE, MEDICAID, SELFPAY ==
--- NOTE | 2020-11-09 13:20 | XR_ITS ---
WS: [id number] HIP WITH PELVIS RIGHT TECHNIQUE: 3 views of the right hip with pelvis CLINICAL INFORMATION: M25.551 - Pain in right hip COMPARISON: None. FINDINGS: Mild to moderate degenerative arthritis right hip with hypertrophic changes. Joint space narrowing. P elvic phleboliths. Vascular calcification. Visualized right pubic rami are normal. XR/XR hip RT 2-3V wo/w pel* [id number] IMPRESSION: Mild/moderate degenerative arthritis right hip. No acute fractures. Tonnis classification: grade 2: small cysts in femoral head/acetabulum or moder ate joint space narrowing or moderate loss of head sphericity
== END 2020-11-09 12:55 | disposition home or self-care (01) ==
LOC: RADOUTREAD 13:06 → RADWPI 13:20
PROVIDERS: PCP Internal Medicine; Visit Provider Surgery
DX: M25.551 Pain in right hip (principal); R10.31 Right lower quadrant pain; M16.11 Unilateral primary osteoarthritis, right hip
CPT/HCPCS: 73502; 87635

== ENCOUNTER 2020-11-14 05:45 | Day surgery (SDC) | payer MEDICARE, MEDICAID, SELFPAY ==
[2020-11-14 06:22] VITALS: BP 140/85; PULSE 71; RESP 18; TEMP 36.1; O2SAT 96
[2020-11-14] MEDS: sodium chloride 0.9% 1,000 ML 30 ML IV (06:28)
[2020-11-14 06:34] LABS: Glucose Point of Care 99 mg/dL (70-110)
--- NOTE | 2020-11-14 06:52 | ANES.PREANE2 ---
Pre-Anesthetic Assessment Pre-Anesthetic Assessment: Height/Weight: Height 1.68 m Weight 108.409 kg Temp Pulse Resp BP Pulse Ox 97 F L 71 18 140/85 96 11/14/20 06:22 11/14/20 06:22 11/14/20 06:22 11/14/20 06:22 11/14/20 06:22 Preop Diagnosis: hematochezia Proposed Procedure: Operation Date: 11/14/20 07:00 Proposed Procedures p EGD [id number] k62.5 d50.9(Not Applicable) - Juventino Lopez MD s Colonoscopy(Not Applicable) - Juventino Lopez MD Was Beta Sam taken within 24 hours: Yes Was Clonidine taken within 24 hours: N/A Last intake: Intake Last Liquid Date 11/13/20 Last Liquid Time 18:30 Last Solid Date 11/12/20 Last Solid Time 16:00 Social: Social History: No alcohol and No tobacco Exam: Pre-Anes Outpt Exam: alert, oriented x 3, clear to auscultation bilaterally and regular rate & rhythm Airway: Submandibular: WNL Cervical ROM: WNL MP: 2 History/ROS: No significant history except as noted Pulmonary: Pulmonary: Sleep apnea and SOB (less than 2 flights of stairs) CV/HEM: CV/HEM: Anemia, CAD, CHF, DVT, HTN and NC (2011) : Comments: CKD 4 Hepatic: Hepatic: None reported GI: GI: GERD Metabolic: Metabolic: DM, Hyperlipidemia, Morbid obesity and Thyroid Musc/skel: Musc/skel: None reported Neuropsych: Neuropsych: Depression Anesthetic Plan: ASA status: 3 Anesthesia: Anesthesia Evaluation and MAC Risk of > 500 ml blood loss (7ml/kg in children): No Meds/Allergies Current Medications: Current Medications Generic Name Dose Route Start Last Admin Trade Name Freq PRN Reason Stop Dose Admin Sodium Chloride 1,000 mls @ 30 ml s/hr 11/14/20 06:15 11/14/20 06:28 Sodium Chloride 0.9% IV 11/15/20 06:14 30 mls/hr .Q24H RANDY Administration PFSH Anesthesia PFSH: Medical History (Updated 11/11/20 @ 07:27 by Juventino Lopez MD) Anemia Atherosclerotic heart disease of [place] coronary artery with other forms of angina pectoris hx of CAD with prior stenting of proximal LAD, LCx, RCA Chronic kidney disease -baseline Cr appears to be around 1.5 Chronic systolic heart failure EF=47%, diffuse LV hypokinesis, mildly increased LA size Depression Diabetes A1c-7.6 (08/2019) Foot drop, left GERD (gastroesophageal reflux disease) H/O acute myocardial infarction H/O deep venous thrombosis developed compartment syndrome Hyperlipidemia Hypertension Hypothyroidism Ischemic cardiomyopathy Osteoarthritis of spine Surgical History (Updated 11/11/20 @ 07:26 by Juventino Lopez MD) H/O colonoscopy 08/2015 H/O esophagogastroduodenoscopy 08/2015 H/O removal of testicle left H/O skin graft H/O vasectomy History of appendectomy 1995 History of coronary artery stent placement 5x History of excision of mass 06/08/2019: Subcutaneous mass on back History of inguinal hernia repair, bilateral 1999 History of removal of Port-a-Cath Hx of cholecystectomy Port-A-Cath in place Family History Grandfather Cancer skin cancer Parkinson disease Brother Hypertension Father Heart disease Mother Hypertension Stroke Aneurysm Grandmother Aneurysm Other Crohn disease Denies family history of Anesthesia complication Bleeding disorder Social History Smoking and tobacco status: never smoked Alcohol intake: former Former alcohol use details: Only holidays Lives independently: Yes Household members: significant other Marital status: Single Current occupational status: disabled History of recent travel: No Data Anesthesia Other Labs: Laboratory Results - last 48 hr 11/14/20 06:30 POC Glucose 99 Cardiac Studies: No Data to Display
--- NOTE | 2020-11-14 06:55 | W.PM.OPSUD ---
Surgery/Procedure H&P Update DATE OF PROCEDURE: November 14, 2020 DATE H&P PERFORMED: 11/08/20 H&P UPDATE INFORMATION: I have reviewed H&P completed within last 30 days, I have examined patient prior to procedure and No changes to prior documentation PREOP DIAGNOSIS: hematochezia PLANNED PROCEDURE: Operation Date: 11/14/20 07:00 Proposed Procedures p EGD [id number] k62.5 d50.9(Not Applicable) - Juventino Lopez MD s Colonoscopy(Not Applicable) - Juventino Lopez MD
[2020-11-14 07:27] VITALS: BP 112/70; PULSE 65; RESP 16; TEMP 36.1; O2SAT 90
[2020-11-14 07:57] VITALS: BP 142/84; PULSE 66; RESP 18; O2SAT 97
--- NOTE | 2020-11-14 15:26 | ANE.PACU2 ---
Inpatient post-anesthesia follow up: Airway intact: Yes Vital signs: Temperature 97 F Pulse Rate 66 Respiratory Rate 18 Blood Pressure 142/84 Pulse Oximetry 97 Oxygen Delivery Me thod Room Air Oxygen Flow Rate 3 Fraction of Inspir ed Oxygen Hydration adequate: Yes Nausea and vomiting: No Pain level: 1 Mental status: Baseline
== END 2020-11-14 08:11 | disposition home or self-care (01) ==
PROVIDERS: PCP Internal Medicine; Visit Provider Surgery
PROC: 0DJ08ZZ Inspection of Upper Intestinal Tract, Via Natural or Artificial Opening Endoscopic (ICD-10-PCS; CPT 43235; principal; 2020-11-14 07:00)
PROC: 0DJD8ZZ Inspection of Lower Intestinal Tract, Via Natural or Artificial Opening Endoscopic (ICD-10-PCS; CPT 45378; 2020-11-14 07:00)
DX: K92.1 Melena (principal); K29.70 Gastritis, unspecified, without bleeding; K20.90 Esophagitis, unspecified without bleeding; G47.30 Sleep apnea, unspecified; E78.5 Hyperlipidemia, unspecified; I50.22 Chronic systolic (congestive) heart failure; I25.2 Old myocardial infarction; E11.22 Type 2 diabetes mellitus with diabetic chronic kidney disease; I13.0 Hypertensive heart and chronic kidney disease with heart failure and stage 1 through stage 4 chronic kidney disease, or unspecified chronic kidney disease; N18.4 Chronic kidney disease, stage 4 (severe); E66.01 Morbid (severe) obesity due to excess calories; Z68.38 Body mass index [BMI] 38.0-38.9, adult
CPT/HCPCS: 36416; 43239; 45380; 82962; 88305; 96360; 96361; J2704; J7030

== ENCOUNTER 2020-11-17 09:08 | Outpatient (RCR) | payer MEDICARE, MEDICAID, SELFPAY | END 2020-12-17 23:59 | disposition home or self-care (01) | LOC: CR 09:08 | PROVIDERS: PCP Internal Medicine; Referring Provider Internal Medicine Cardiovascular Disease; Visit Provider Internal Medicine Cardiovascular Disease | DX: Z95.5 Presence of coronary angioplasty implant and graft (principal) ==

== ENCOUNTER → 2020-12-01 09:14 | Outpatient (BNVA) | payer MEDICARE, MEDICAID, SELFPAY | PROVIDERS: PCP Internal Medicine; Referring Provider Surgery; Visit Provider Specialist | DX: M25.559 Pain in unspecified hip (principal) | CPT/HCPCS: 73502 ==

== ENCOUNTER → 2020-12-05 07:10 | Day surgery (SDC) | payer MEDICARE, MEDICAID, SELFPAY ==
[2020-12-05 07:15] VITALS: BP 125/73; PULSE 70; RESP 18; TEMP 36.3; O2SAT 96
== END ==
PROVIDERS: PCP Internal Medicine; Visit Provider Internal Medicine
DX: Z95.828 Presence of other vascular implants and grafts (principal)
CPT/HCPCS: 96368; 96523; 99205

== ENCOUNTER → 2020-12-05 13:57 | Outpatient (BNVA) | payer MEDICARE, MEDICAID, SELFPAY | PROVIDERS: PCP Internal Medicine; Referring Provider Surgery; Visit Provider Anesthesiology Pain Medicine | DX: G89.29 Other chronic pain (principal); M16.0 Bilateral primary osteoarthritis of hip; M53.3 Sacrococcygeal disorders, not elsewhere classified; R10.31 Right lower quadrant pain; M51.9 Unspecified thoracic, thoracolumbar and lumbosacral intervertebral disc disorder; Z79.891 Long term (current) use of opiate analgesic | CPT/HCPCS: 99205 ==

== ENCOUNTER 2020-12-13 06:00 | Outpatient (RCR) | payer MEDICARE, MEDICAID, SELFPAY | END 2020-12-17 23:59 | disposition home or self-care (01) | LOC: SPT 06:00 | PROVIDERS: PCP Internal Medicine; Referring Provider Specialist; Visit Provider Specialist | DX: M53.3 Sacrococcygeal disorders, not elsewhere classified | CPT/HCPCS: 97161; G0260 ==

== ENCOUNTER → 2020-12-13 13:34 | Outpatient (BNVA) | payer MEDICARE, MEDICAID, SELFPAY | PROVIDERS: PCP Internal Medicine; Visit Provider Anesthesiology Pain Medicine | DX: G89.29 Other chronic pain (principal); M53.3 Sacrococcygeal disorders, not elsewhere classified; E11.9 Type 2 diabetes mellitus without complications; M51.9 Unspecified thoracic, thoracolumbar and lumbosacral intervertebral disc disorder; M19.90 Unspecified osteoarthritis, unspecified site; M25.551 Pain in right hip; Z79.891 Long term (current) use of opiate analgesic | CPT/HCPCS: G0260; J1030; J3490 ==

== ENCOUNTER 2020-12-18 06:00 | Outpatient (RCR) | payer MEDICARE, MEDICAID, SELFPAY | END 2021-01-17 23:59 | disposition home or self-care (01) | LOC: SPT 06:00 | PROVIDERS: PCP Internal Medicine; Referring Provider Specialist; Visit Provider Specialist | DX: Z79.891 Long term (current) use of opiate analgesic (principal); M54.5 Low back pain; M53.3 Sacrococcygeal disorders, not elsewhere classified | CPT/HCPCS: 97110 ==

== ENCOUNTER → 2020-12-29 09:05 | Outpatient (BNVA) | payer MEDICARE, MEDICAID, SELFPAY | PROVIDERS: PCP Internal Medicine; Visit Provider Anesthesiology Pain Medicine | DX: G89.29 Other chronic pain (principal); M51.9 Unspecified thoracic, thoracolumbar and lumbosacral intervertebral disc disorder; M53.3 Sacrococcygeal disorders, not elsewhere classified; M19.90 Unspecified osteoarthritis, unspecified site; M25.551 Pain in right hip; S79.919A Unspecified injury of unspecified hip, initial encounter; X58.XXXA Exposure to other specified factors, initial encounter; E11.42 Type 2 diabetes mellitus with diabetic polyneuropathy; M21.371 Foot drop, right foot; R10.31 Right lower quadrant pain; Z79.891 Long term (current) use of opiate analgesic | CPT/HCPCS: 99213 ==

== ENCOUNTER 2021-01-08 16:48 | Inpatient (IN) | payer MEDICARE, MEDICAID, SELFPAY ==
[2021-01-08 16:56] VITALS: BP 154/90; PULSE 80; RESP 18; TEMP 36.7; O2SAT 94; BMI 38.7
--- NOTE | 2021-01-08 18:01 | ECG_ITS ---
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 Measurements Intervals [place] Rate: 80 P: 18 ME: 202 QRS: -28 QRSD: 102 T: 43 QT: 384 QTc: 444 Interpretive Statements SINUS RHYTHM POSSIBLE ANTERIOR MYOCARDIAL INFARCTION [30 ms Q WAVE IN V3/V4, OR R < 0.2 mV IN V4], OF INDETERMINATE AGE Compared to ECG 09/25/2020 17:12:39 No significant changes Electronically Signed On 01-09-2021 13:06:24 CDT by Tory Lopez M.D. [email or web address]
--- NOTE | 2021-01-08 18:03 | W.ED.GENADLT ---
HPI - General Adult General: Chief complaint: Chest Pain Stated complaint: sob, chest pain Time Seen by Provider: 01/08/21 17:29 History of Present Illness: HPI narrative: CC: Dyspnea HPI: This is a [50] yo patient w/ hx of CHF (EF of 47% from 12/02/2019), CABG, HTN, DM, b/l inguinal hernia s/p mesh repair, VTEs on eliquis presenting ot the ED with dyspnea and increased work of breathing x 4 days in the setting of increased weight gain and lower extremity swelling. Endorses of orthopnea and increased pillow usage at night. At baseline, patient takes lasix 40mg but noticed increased weight gain since then despite doubling on his lasix today. In addition, patient also had nausea and chest pressure briefly. Denies diaphoresis, shoulder pain pain or back pain. Patient has no fever/chill, or sputum production. No GI or other complaints. Of note, patient also has chronic R groin/scrotal pain for which he has seen multiple providers at [facility]. He was recently diagnosed with possible inguinal hernia with varicoele. He would like to seen by Dr. Mccallum to establish care in two years. Onset: 4 days ago Duration: ongoing for the last 4 days Location: home Severity: moderate Review of Systems Narrative: Constitutional: No fever, no chills. HEENT: No vision changes CV: +chest pain, no palpitations PULM: No productive cough, +dyspnea GI: No abdominal pain, +N/-V/-D. : No dysuria MSKEL: No muscle pain, leg swelling SKIN: No new rashes, no lesions. NEURO: No headache, no focal weakness. HEME: No visible bruises PSYCH: Normal mood PFSH ED PFSH: Medical History Anemia Atherosclerotic heart disease of [place] coronary artery with other forms of angina pectoris hx of CAD with prior stenting of proximal LAD, LCx, RCA Chronic kidney disease -baseline Cr appears to be around 1.5 Chronic systolic heart failure EF=47%, diffuse LV hypokinesis, mildly increased LA size Depression Diabetes A1c-7.6 (08/2019) Foot drop, left GERD (gastroesophageal reflux disease) H/O acute myocardial infarction H/O deep venous thrombosis developed compartment syndrome Hyperlipidemia Hypertension Hypothyroidism Ischemic cardiomyopathy Osteoarthritis of spine Surgical History H/O colonoscopy (11/14/20) 08/2015 H/O esophagogastroduodenoscopy (11/14/20) 08/2015 H/O removal of testicle left H/O skin graft H/O vasectomy History of appendectomy 1995 History of coronary artery stent placement 5x History of excision of mass 06/08/2019: Subcutaneous mass on back History of inguinal hernia repair, bilateral 1999 History of removal of Port-a-Cath Hx of cholecystectomy Port-A-Cath in place Family History Grandfather Cancer skin cancer Parkinson disease Brother Hypertension Father Heart disease Mother Hypertension Stroke Aneurysm Grandmother Aneurysm Other Crohn disease Denies family history of Anesthesia complication Bleeding disorder Social History Smoking and tobacco status: never smoked Second hand smoke exposure: No Alcohol intake: former Former alcohol use details: Only holidays Lives independently: Yes Household members: significant other Marital status: Single Current occupational status: disabled History of recent travel: No Physical Exam Narrative: EXAM NARRATIVE: Head: Atraumatic Eyes: PERRL, conjunctiva without injection ENT: Mucous membrane moist NECK: Supple without lymphadenopathy, mild JVD LUNGS: Mild crackles in the lung field CV: RRR ABDOMEN: Soft, nontender in all quadrants EXTREMITY: Normal ROM, bilateral 2+ edema in the LE, no shabbir?s sign, +old b/l fasciotomy scars SKIN: No rash or erythema NEURO: Awake and alert. No focal motor deficits. PSYCH: Normal mood and affect. Course Vital Signs: Vital signs: Vital Signs Temperature 98 F 01/08/21 22:29 Pulse Rate 77 01/08/21 22:29 Respiratory Rate 17 01/08/21 22:29 Blood Pressure 156/85 01/08/21 22:29 Pulse Oximetry 96 01/08/21 22:29 MDM - General Adult MDM Narrative: Medical decision making narrative: [50]yo pt w/ hx of CHF, CAD, HTN, DM presenting to the ED with dyspnea and increased work of breathing concerning acute on chronic CHF exacerbation. Physical exam consistent signs of fluid overload including crackles bilaterally and LE swelling. Workup today: ECG, CBC, BMP, Troponin, BNP, CXR. Intervention: IV lasix after potassium check Based on history, exam and findings, presentation most consistent with acute on chronic heart failure. Low suspicion for PNA, ACS, tamponade, aortic dissection. EKG: No STEMI and no evidence of Brugada?s sign, delta wave, epsilon wave, significantly prolonged QTc, or malignant arrhythmia. Troponin is 25 consistent with prior finidngs and BNP elevated at 2K compared to baseline level of 8K. CXR: Neg of pulmonary edema [6:20] On reassessment, patient is stable and patient is mentating without issues. Given lasix 80mg x 1 in the ER with significant symptom improvement in dyspnea. No signs of increased work of breathing requiring BIPAP. Patient is followed by Dr. Lopez. I performed a shared decision making and patient elects to be admitted for fluid removal and observation. Given the current presentation, I believe the patient would benefit from inpatient admission for continued diuresis and fluid removal. I have discussed a plan with a patient who agrees with inpatient admission. US of the scrotum showed no definitive evidence of hernia. Patient will need followup with Dr. Mccallum. Disposition: Admission Lab Data: Labs: Lab Results 01/08/21 01/08/21 01/08/21 Range/Units 18:20 18:20 18:20 WBC 8.4 (4.0-10.0) 10^3/ uL RBC 3.89 L (4.1-5.3) 10^6/u L Hgb 11.1 L (11.7-16.6) g/dL Hct 35.1 L (42.0-52.0) % MCV 90.2 (80-94) fl MCH 28.5 (28.0-34.0) pg MCHC 31.6 (30.0-36.0) g/dL RDW 15.7 H (12.1-15.1) % Plt Count 280 (130-400) 10^3/c mm MPV 9.7 (7.4-10.4) fL Neut % (Auto) 65.7 % Lymph % (Auto) 22.0 % [place] % (Auto) 8.0 % Eos % (Auto) 3.1 % Baso % (Auto) 1.0 % Neut # (Auto) 5.53 (1.8-7.7) 10^3/u L Lymph # (Auto) 1.9 (0.8-4.8) 10^3/u L [place] # (Auto) 0.7 (0.2-0.9) 10^3/u L Eos # (Auto) 0.3 (0.0-0.8) 10^3/u L Baso # (Auto) 0.1 (0.0-0.1) 10^3/u L Nucleated RBC % (a uto) 0 % Nucleated RBCs # 0.0 /100WBC Sodium Cancelled Potassium Cancelled Chloride Cancelled Carbon Dioxide Cancelled Anion Gap Cancelled BUN Cancelled Creatinine Cancelled GFR Calculation Cancelled Glucose Cancelled Calculated Osmolal ity Cancelled Calcium Cancelled Troponin T Baselin e Cancelled NT-Pro-B Natriuret Pep Cancelled 01/08/21 01/08/21 Range/Units 18:58 18:58 WBC (4.0-10.0) 10^3/ uL RBC (4.1-5.3) 10^6/u L Hgb (11.7-16.6) g/dL Hct (42.0-52.0) % MCV (80-94) fl MCH (28.0-34.0) pg MCHC (30.0-36.0) g/dL RDW (12.1-15.1) % Plt Count (130-400) 10^3/c mm MPV (7.4-10.4) fL Neut % (Auto) % Lymph % (Auto) % [place] % (Auto) % Eos % (Auto) % Baso % (Auto) % Neut # (Auto) (1.8-7.7) 10^3/u L Lymph # (Auto) (0.8-4.8) 10^3/u L [place] # (Auto) (0.2-0.9) 10^3/u L Eos # (Auto) (0.0-0.8) 10^3/u L Baso # (Auto) (0.0-0.1) 10^3/u L Nucleated RBC % (a uto) % Nucleated RBCs # /100WBC Sodium 140 Potassium 4.0 Chloride 102 Carbon Dioxide 26 Anion Gap 16.0 BUN 29 H Creatinine 1.9 H GFR Calculation 37.4 L Glucose 115 Calculated Osmolal ity 297 H Calcium 8.1 L Troponin T Baselin e 25 H NT-Pro-B Natriuret Pep 2154 H Imaging Data^: Other Imaging: Radiologist's impression: [address] [id number] [place], [place] [address]RHfj ReportSigned Patient: Rei Queen IIUnit #: [id number]: [id number]#:[id number]/Sex: 50 / MADM Date: 01/08/21Loc: ERRoom/Bed:Attending Dr: Ordering Provider/Ordering MD: Jose Macias MD Date of Service: 01/08/21 Procedure(s): XR chest 1V portable [id number] Accession Number(s): [id number] Report Number: [id number] PROCEDURE INFORMATION: Exam: XR Chest Exam date and time: 01/08/2021 6:42 PM Age: 50 years old Clinical indication: Dyspnea; Prior surgery; Surgery date: 6+ months; Additional info: SOB TECHNIQUE: Imaging protocol: XR of the chest. Views: 1 view. COMPARISON: CR (CHEST, ) 01/08/2021 6:06 PM FINDINGS: Tubes, catheters and devices: Left chest tunnel Port-A-Cath terminates in the distal superior vena cava. Lungs: Unremarkable. No consolidation. Pleural spaces: Unremarkable. No pleural effusion. No pneumothorax. Heart/Mediastinum: Previous CABG is noted. Mild cardiac enlargement. Bones/joints: Unremarkable. XR/XR chest 1V portable [id number] IMPRESSION: No focal acute pulmonary disease identified. Dictated By:Venancio Macias By:Venancio Macias Date/Time:01/08/211932 [address] [address]Zjlscgldmd ReportSigned Patient: Rei Queen IIUnit #: [id number]: [id number]#:[id number]/Sex: 50 / MADM Date: 01/08/21Loc: ERRoom/Bed:Attending Dr: Ordering Provider/Ordering MD: Jose Macias MD Date of Service: 01/08/21 Procedure(s): US scrotum [id number] Accession Number(s): [id number] Report Number: [id number] PROCEDURE INFORMATION: Exam: US Scrotum and Artery or Vein of the Abdominal and/or Reproductive Organs, Limited Scrotum Exam date and time: 01/08/2021 6:03 PM Age: 50 years old Clinical indication: Scrotum pain; Prior surgery; Surgery date: 6+ months; Surgery type: Hernia; Additional info: R sided possible inguinal hernia/ +varicocele TECHNIQUE: Imaging protocol: Real-time ultrasound of the scrotum. Real-time duplex ultrasound scan of the arterial or venous flow with blanco scale, color Doppler flow and spectral waveform analysis with image documentation. Limited Duplex exam focused of the scrotum. Duplex images required to evaluate for torsion and other vascular conditions. COMPARISON: US scrotum [id number] 09/25/2020 6:01 PM FINDINGS: Right testicle: Normal. No mass. No torsion. Normal Duplex waveforms and color doppler. Left testicle: Absent. Epididymides: Right-side Unremarkable. Left-sided not seen. Scrotum: Trace right scrotal hydrocele. US/US scrotum [id number] IMPRESSION: 1. Negative for testicular torsion. 2. No convincing ultrasound evidence of inguinal hernia. Clinical correlation with physical exam necessary. 3. Absence of left testis. 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
[2021-01-08 18:36] LABS: Basophils # 0.1 10^3/uL (0.0-0.1); Eosinophils # 0.3 10^3/uL (0.0-0.8); Eosinophils % 3.1 %; Hematocrit 35.1 % (42.0-52.0); Hemoglobin 11.1 g/dL (11.7-16.6); Lymphocytes # 1.9 10^3/uL (0.8-4.8); Mean Corpuscular HGB Conc 31.6 g/dL (30.0-36.0); Mean Corpuscular Hemoglobin 28.5 pg (28.0-34.0); Mean Corpuscular Volume 90.2 fl (80-94); Mean Platelet Volume 9.7 fL (7.4-10.4); Monocytes # 0.7 10^3/uL (0.2-0.9); Neutrophils # 5.53 10^3/uL (1.8-7.7); Neutrophils % 65.7 %; Nucleated Red Blood Cells % 0 %; Platelet Count 280 10^3/cmm (130-400); Red Blood Count 3.89 10^6/uL (4.1-5.3); Red Cell Distribution Width 15.7 % (12.1-15.1); White Blood Count 8.4 10^3/uL (4.0-10.0)
--- NOTE | 2021-01-08 18:42 | XRR_ITS ---
PROCEDURE INFORMATION: Exam: XR Chest Exam date and time: 01/08/2021 6:42 PM Age: 50 years old Clinical indication: Dyspnea; Prior surgery; Surgery date: 6+ months; Additional info: SOB TECHNIQUE: Imaging protocol: XR of the chest. Views: 1 view. COMPARISON: CR (CHEST, ) 01/08/2021 6:06 PM FINDINGS: Tubes, catheters and devices: Left chest tunnel Port-A-Cath terminates in the distal superior vena cava. Lungs: Unremarkable. No consolidation. Pleural spaces: Unremarkable. No pleural effusion. No pneumothorax. Heart/Mediastinum: Previous CABG is noted. Mild cardiac enlargement. Bones/joints: Unremarkable. XR/XR chest 1V portable [id number] IMPRESSION: No focal acute pulmonary disease identified.
[2021-01-08 18:55] VITALS: BP 164/91; PULSE 79; RESP 15; O2SAT 97
[2021-01-08] MEDS: promethazine 25 mg Tablet 12.5 MG PO (19:10)
[2021-01-08] MEDS: aspirin 325 mg Tablet PO (19:10)
[2021-01-08] MEDS: morphine 4 mg/mL SDV 1 mL IVP (19:10)
[2021-01-08 19:27] LABS: Troponin(5th) Baseline 25 ng/L (0-15)
[2021-01-08 19:33] LABS: Blood Urea Nitrogen 29 mg/dL (6-20); Calcium 8.1 mg/dL (8.5-10.5); Carbon Dioxide 26 mmol/L (22-29); Chloride 102 mmol/L (98-107); Glomerular Filtration Rate 37.4 mL/min (90-130); Glucose 115 mg/dL (65-115); NT Pro B Type Natriuretic Pept 2154 pg/mL (0-125); Osmolality Calculated 297 mOsm/kg (285-295); Sodium 140 mmol/L (136-145)
[2021-01-08] MEDS: FUROsemide 40 mg Tablet 80 MG PO (19:43)
--- NOTE | 2021-01-08 20:01 | ECG_ITS ---
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 Measurements Intervals [place] Rate: 75 P: 16 HI: 198 QRS: -16 QRSD: 102 T: 45 QT: 411 QTc: 461 Interpretive Statements SINUS RHYTHM POSSIBLE ANTERIOR MYOCARDIAL INFARCTION , PROBABLY OLD [30 ms Q WAVE IN V3/V4, OR R < 0.2 mV IN V4] Compared to ECG 09/25/2020 17:12:39 No significant changes Electronically Signed On 01-09-2021 13:20:44 CDT by Tory Lopez M.D. [id number]
[2021-01-08 20:11] VITALS: BP 147/98; PULSE 78; RESP 19; O2SAT 94
[2021-01-08 22:01] VITALS: BP 160/89; PULSE 77; RESP 18; O2SAT 95
[2021-01-08 22:07] VITALS: PULSE 80
--- NOTE | 2021-01-08 22:10 | P.HP_ITS ---
Providers/Chief Complaint Admitting Physician: Carolina Durant MD Primary Care Provider: Kp Montanez DO Chief Complaint: sob, chest pain History of Present Illness Rei Queen II is a 50 year old male with multiple medical issues and known to me from previous admissions who presented to the emergency room with chief complaint of increasing difficulty breathing, weight gain, edema and chest pain. He has had weight gain of 6 or 7 pounds over the last couple of days. Denies any changes in medications, dietary intake, fluid intake or other issues. He has had orthopnea, PND and increasing dyspnea on exertion. He has been taking his Lasix. He has had intermittent episodes of anginal pain. Typically will go away with nitroglycerin. He has had headaches related to the nitroglycerin. He denies any other associated symptoms. In addition to this he has had pain in his right groin. Radiates into his scrotum. He has a known hernia and is being followed outpatient for this. Work-up in the emergency room revealed an elevated BNP from baseline, elevated troponin without significant delta, no EKG changes. He received oral Lasix in the emergency room. Given his history, complaints and findings is being admitted for further care. Review of Systems Const: Denies: fever(s), chills or change in weight ENMT: Denies: throat pain or nasal congestion Card: Reports: chest pain, edema, dyspnea on exertion and orthopnea Resp: Reports: dyspnea and non-productive cough; Denies: productive cough GI: Denies: abdominal pain, nausea or vomiting : Reports: scrotal swelling (And right groin pain from hernia) Skin/Breast: Denies: sores Neuro: Reports: headache(s) Psych: Denies: anxiety or depression [place]/Lymph: Denies: easy bleeding Medications/Allergies Home Medications Medication Instructions Recorded Confirmed Last Taken Type aspirin 81 mg tablet,delayed 81 mg PO DAILY@0600 06/01/19 01/08/21 01/08/21 History release dulaglutide 0.75 mg/0.5 mL 0.75 mg SUBCUT Q7D 06/01/19 01/08/21 01/07/21 History subcutaneous pen injector levothyroxine 88 mcg capsule 88 mcg PO DAILY@0600 06/01/19 01/08/21 01/08/21 History metoprolol tartrate 50 mg tablet 50 mg PO BID@0600,1800 06/01/19 01/08/21 01/08/21 History multivitamin 1 tab PO QPM 06/01/19 01/08/21 01/07/21 History diabetic shoes #1 ea 06/09/19 01/08/21 07/06/19 Rx cyclobenzaprine 10 mg PO TID PRN 01/07/20 01/08/21 11/13/20 History [place] #1 ea 01/28/20 01/08/21 Unknown Rx amlodipine 10 mg PO DAILY@0600 04/08/20 01/08/21 01/08/21 History isosorbide mononitrate 30 mg PO BID@0600,1800 09/05/20 01/08/21 01/08/21 History acetaminophen [Tylenol Extra 1,000 mg PO PRN 09/25/20 01/08/21 11/13/20 History Strength] insulin lispro [Humalog U-100 See Rx Instructions .ROUTE .COMPLEX 09/25/20 01/08/21 01/08/21 History Insulin] 10 UNITS metformin 500 mg PO BID@06,18 09/25/20 01/08/21 01/08/21 History promethazine 25 mg PO Q6H PRN 09/25/20 01/08/21 01/08/21 History nitroglycerin 0.4 mg sublingual 0.4 mg SUBLINGUAL Q5M PRN #25 tab 10/10/20 01/08/21 Unknown Rx tablet apixaban 2.5 mg tablet 2.5 mg PO Q12H #60 tab 10/18/20 01/08/21 01/08/21 Rx citalopram 40 mg tablet 40 mg PO DAILY #30 tab 11/01/20 01/08/21 01/07/21 Rx insulin degludec 100 unit/mL (3 15 unit SUBCUT .bedtime ml 11/01/20 01/08/21 01/07/21 History mL) subcutaneous pen atorvastatin 40 mg PO DAILY 11/04/20 01/08/21 01/07/21 History furosemide 40 mg PO BID 11/04/20 01/08/21 01/08/21 History 80 MG hydrocodone 5 mg-acetaminophen 325 1 tab PO BID PRN 30 Days #60 tab 12/27/20 0 01/08/21 Unknown Rx mg tablet pantoprazole 40 mg PO DAILY 01/08/21 01/08/21 01/07/21 History ranolazine 500 mg PO BID 01/08/21 01/08/21 01/08/21 History trazodone 100 mg PO BEDTIME PRN 01/08/21 01/08/21 Unknown History Allergies Allergy/AdvReac Type Severity Reaction Status Date / Time Sulfa (Sulfonamide Allergy Severe ALGY-Difficulty Verified 01/08/21 22:17 Antibiotics) Breathing haloperidol [From Haldol] Allergy ADR-Irritab Verified 01/08/21 22:17 le Iodinated Contrast Media Allergy ALGY-Difficulty Verified 01/08/21 22:17 Breathing iodine Allergy ALGY-Difficulty Verified 01/08/21 22:17 Breathing ketorolac Allergy ADR-Nausea Verified 01/08/21 22:17 metoclopramide [From Reglan] Allergy ALGY-Difficulty Verified 01/08/21 22:17 Breathing nalbuphine [From Nubain] Allergy ADR-Diarrhe Verified 01/08/21 22:17 a naproxen [From Naprosyn] Allergy ADR-Vomitin Verified 01/08/21 22:17 g ondansetron [From Zofran] Allergy ADR-Abdominal Verified 01/08/21 22:17 Pain prochlorperazine Allergy ADR-Irritab Verified 01/08/21 22:17 [From Compazine] le codeine AdvReac Mild ALGY-Anaphy Verified 01/08/21 16:59 laxis PFSH Acute PFSH: Medical History (Updated 01/09/21 @ 08:48 by Carolina Durant MD) Anemia Atherosclerotic heart disease of [place] coronary artery with other forms of angina pectoris hx of CAD with prior stenting of proximal LAD, LCx, RCA Chronic kidney disease -baseline Cr appears to be around 1.5 Chronic systolic heart failure EF=47%, diffuse LV hypokinesis, mildly increased LA size Depression Diabetes A1c-7.6 (08/2019) Foot drop, left GERD (gastroesophageal reflux disease) H/O acute myocardial infarction H/O deep venous thrombosis developed compartment syndrome Hyperlipidemia Hypertension Hypothyroidism Ischemic cardiomyopathy Osteoarthritis of spine Surgical History H/O colonoscopy (11/14/20) 08/2015 H/O esophagogastroduodenoscopy (11/14/20) 08/2015 H/O removal of testicle left H/O skin graft H/O vasectomy History of appendectomy 1995 History of coronary artery stent placement 5x History of excision of mass 06/08/2019: Subcutaneous mass on back History of inguinal hernia repair, bilateral 1999 History of removal of Port-a-Cath Hx of cholecystectomy Port-A-Cath in place Family History Grandfather Cancer skin cancer Parkinson disease Brother Hypertension Father Heart disease Mother Hypertension Stroke Aneurysm Grandmother Aneurysm Other Crohn disease Denies family history of Anesthesia complication Bleeding disorder Social History Smoking and tobacco status: never smoked Second hand smoke exposure: No Alcohol intake: former Former alcohol use details: Only holidays Lives independently: Yes Household members: significant other Marital status: Single Current occupational status: disabled History of recent travel: No Vitals/I&O/Wt Last Vital Signs Temp 98.1 F 01/08/21 16:56 Pulse 77 01/08/21 22:01 Resp 18 01/08/21 22:01 BP 160/89 01/08/21 22:01 Pulse Ox 95 01/08/21 22:01 Weight last 48 hrs Weight 108.862 kg Physical Exam Narrative: EXAM NARRATIVE: Constitutional: Awake and alert HEENT: Normocephalic atraumatic, moist mucous membranes, extraocular muscles are intact Neck: Supple Respiratory: Clear to auscultation Cardiovascular: Regular rhythm, no murmurs Abdomen: Soft : Some tenderness in the right groin but no guarding, no tender protrusions identified Extremities: 3+ edema Skin: Dry, no obvious rashes Neuro: Speech clear, face symmetric, moves all extremities Psych: Flat affect Data : 01/08/21 18:20 01/08/21 18:58 Other Labs: Laboratory Results WBC 8.4 10^3/uL (4.0-10.0) 01/08/21 18:20 RBC 3.89 10^6/uL (4.1-5.3) L 01/08/21 18:20 Hgb 11.1 g/dL (11.7-16.6) L 01/08/21 18:20 Hct 35.1 % (42.0-52.0) L 01/08/21 18:20 MCV 90.2 fl (80-94) 01/08/21 18:20 MCH 28.5 pg (28.0-34.0) 01/08/21 18:20 MCHC 31.6 g/dL (30.0-36.0) 01/08/21 18:20 RDW 15.7 % (12.1-15.1) H 01/08/21 18:20 Plt Count 280 10^3/cmm (130-400) 01/08/21 18:20 MPV 9.7 fL (7.4-10.4) 01/08/21 18:20 Neut % (Auto) 65.7 % 01/08/21 18:20 Lymph % (Auto) 22.0 % 01/08/21 18:20 [place] % (Auto) 8.0 % 01/08/21 18:20 Eos % (Auto) 3.1 % 01/08/21 18:20 Baso % (Auto) 1.0 % 01/08/21 18:20 Neut # (Auto) 5.53 10^3/uL (1.8-7.7) 01/08/21 18:20 Lymph # (Auto) 1.9 10^3/uL (0.8-4.8) 01/08/21 18:20 [place] # (Auto) 0.7 10^3/uL (0.2-0.9) 01/08/21 18:20 Eos # (Auto) 0.3 10^3/uL (0.0-0.8) 01/08/21 18:20 Baso # (Auto) 0.1 10^3/uL (0.0-0.1) 01/08/21 18:20 Nucleated RBC % (auto) 0 % 01/08/21 18:20 Nucleated RBCs # 0.0 /100WBC 01/08/21 18:20 Sodium 140 mmol/L (136-145) 01/08/21 18:58 Potassium 4.0 mmol/L (3.5-5.1) 01/08/21 18:58 Chloride 102 mmol/L (98-107) 01/08/21 18:58 Carbon Dioxide 26 mmol/L (22-29) 01/08/21 18:58 Anion Gap 16.0 (5-19) 01/08/21 18:58 BUN 29 mg/dL (6-20) H 01/08/21 18:58 Creatinine 1.9 mg/dL (0.7-1.2) H 01/08/21 18:58 GFR Calculation 37.4 mL/min (90-130) L 01/08/21 18:58 Glucose 115 mg/dL (65-115) 01/08/21 18:58 Calculated Osmolality 297 mOsm/kg (285-295) H 01/08/21 18:58 Calcium 8.1 mg/dL (8.5-10.5) L 01/08/21 18:58 Troponin T Baseline 25 ng/L (0-15) H 01/08/21 18:58 NT-Pro-B Natriuret Pep 2154 pg/mL (0-125) H 01/08/21 18:58 Impressions Scrotum Ultrasound 01/08/21 18:03 IMPRESSION: 1. Negative for testicular torsion. 2. No convincing ultrasound evidence of inguinal hernia. Clinical correlation with physical exam necessary. 3. Absence of left testis. Chest X-Ray 01/08/21 18:42 IMPRESSION: No focal acute pulmonary disease identified. A&P Assessment and plan (1) CHF exacerbation: Status: Acute Qualifiers: Heart failure type: systolic Qualified Code(s): I50.23 - Acute on chronic systolic (congestive) heart failure (2) Right groin pain: Known inguinal hernia Status: Acute (3) Atherosclerotic heart disease of [place] coronary artery with other forms of angina pectoris: Status: Chronic (4) Chronic systolic heart failure: Status: Chronic (5) Diabetes: Status: Chronic Qualifiers: Diabetes mellitus type: type 2 Diabetes mellitus materials handling coordinator insulin use: with nursing home use Diabetes mellitus complication status: with kidney complications Diabetes mellitus complication detail: with chronic kidney disease Chronic kidney disease stage: stage 3 (moderate) Chronic kidney disease stage 3 subtype: stage 3b (GFR 30-44) Qualified Code(s): E11.22 - Type 2 diabetes mellitus with diabetic chronic kidney disease; N18.32 - Chronic kidney disease, stage 3b; Z79.4 - custodial (current) use of insulin (6) Chronic kidney disease: Status: Chronic Qualifiers: Chronic kidney disease stage: stage 3 (moderate) Chronic kidney disease stage 3 subtype: stage 3b (GFR 30-44) Qualified Code(s): N18.32 - Chronic kidney disease, stage 3b (7) Chronic anticoagulation: Eliquis Status: Chronic Additional A&P Information Inpatient admission IV diuresis Strict I's and O's and daily weights Monitor electrolytes and renal function Telemetry monitoring Continue serial cardiac enzymes Continue usual cardiac medications Continue home pain medications Supportive care otherwise Should he have issues with his hernia, he has been seen by Dr. Lopez outpatient Anticipate discharge home Continue home Eliquis which will provide appropriate VTE prophylaxis Full code Attestations Medical Necessity Statement*: Anticipated stay rater than 2 midnights in a gentleman with known systolic CHF and coronary artery disease with chronic angina. He has had significant weight gain reported and plan is for IV diuresis and close monitoring of response to treatment. Coding Level of Care Code Acute Insurance Sales Supervisor for Aaron Fwd Diagnoses CHF exacerbation I50.23 Heart failure type: systolic Right groin pain R10.31 Atherosclerotic heart disease of [place] coronary 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 Chronic systolic heart failure I50.22 Diabetes E11.22; N18.32; Z79.4 Diabetes mellitus type: type 2 Diabetes mellitus materials handling coordinator insulin use: with materials handling coordinator use Diabetes mellitus complication status: with kidney complications Diabetes mellitus complication detail: with chronic kidney disease Chronic kidney disease stage: stage 3 (moderate) Chronic kidney disease stage 3 subtype: stage 3b (GFR 30-44) Chronic kidney disease N18.32 Chronic kidney disease stage: stage 3 (moderate) Chronic kidney disease stage 3 subtype: stage 3b (GFR 30-44) Chronic anticoagulation Z79.01
--- NOTE | 2021-01-08 22:19 | PC.NURSE ---
Addendum entered by Lise Mustafa RN 01/09/21 03:18: Standing scale will be used to obtain weight. Original Note: Bed states function disabled when attempting to get patient's weight on bed scale.
[2021-01-08 22:26] LABS: Troponin 5 2HR 24.36 ng/L (0-15)
[2021-01-08 22:27] LABS: Troponin 5 2HR Delta -0.64 ABS# (0-10)
[2021-01-08 22:29] VITALS: BP 156/85; PULSE 77; RESP 17; TEMP 36.6; O2SAT 96
--- NOTE | 2021-01-08 22:34 | PC.NURSE ---
Patient is complaining of right groin pain 10/27, asking for pain medications. He also stated I know eventually my chest will start hurting again too. They gave me Morphine in the ED for that. He states that he has not taken his PM dose of Eliquis, Trazodone, Metoprolol, or Isosorbide. He is asking for them. Dr. Durant notified.
[2021-01-08 22:42] LABS: Glucose Point of Care 88 mg/dL (70-110)
[2021-01-08] MEDS: apixaban 5 mg Tablet 2.5 MG PO (23:07)
[2021-01-08] MEDS: trazodone 50 mg Tablet 100 MG PO (23:07)
[2021-01-08] MEDS: HYDROcodone-acetaminophen 5-325 mg Tablet 1 TAB PO (23:07)
[2021-01-08] MEDS: ranolazine (12HR) 500 mg Tablet PO (23:07)
[2021-01-08] MEDS: metoprolol tartrate 50 mg Tablet PO (23:07)
[2021-01-08] MEDS: FUROsemide 10 mg/mL SDV 10mL 60 MG IVP (23:08)
[2021-01-09] VITALS (13 sets, daily range): BP systolic 110–152; BP diastolic 64–91; PULSE 70–77; RESP 14–18; TEMP 36.3–37; O2SAT 91–94
--- NOTE | 2021-01-09 00:01 | ECG_ITS ---
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 Measurements Intervals [place] Rate: 70 P: 15 NE: 194 QRS: -3 QRSD: 96 T: 50 QT: 416 QTc: 452 Interpretive Statements SINUS RHYTHM POSSIBLE ANTERIOR MYOCARDIAL INFARCTION , PROBABLY OLD [30 ms Q WAVE IN V3/V4, OR R < 0.2 mV IN V4] Compared to ECG 01/08/2021 19:48:36 No significant changes Electronically Signed On 01-09-2021 13:20:33 CDT by Tory Lopez M.D. [id number]
[2021-01-09] MEDS: nitroglycerin 0.4 mg sublingual Tablet SUBLINGUAL ×3 (02:02→02:25)
[2021-01-09 02:05] LABS: Troponin 5 6HR 24.55 ng/L (0-15); Troponin 5 6HR Delta -0.45 ng/L (0-12)
--- NOTE | 2021-01-09 02:35 | PC.NURSE ---
Patient c/o chest pain 4/10. Blood pressure 113/71. After 1st SL nitro, pain was 2/10. Blood pressure 110/64. After 2nd SL nitro, pain was 2/10. After 3rd SL nitro, pain is 1/10. VSS. Will continue to assess pain.
--- NOTE | 2021-01-09 03:15 | PC.NURSE ---
Shift Note Frequent safety and comfort rounds continue. Orders and/or nursing care completed as indicated. Patient monitored for response to intervention and treatment(s). Education provided includes pain management. Patient and/or parts representative asked questions and verbalized understanding. Will continue to monitor.
--- NOTE | 2021-01-09 03:40 | PC.NURSE ---
Patient is currently resting in bed with eyes closed.
[2021-01-09] MEDS: isosorbide mononitrate ER 30 mg Tablet PO ×2 (04:48→17:45)
[2021-01-09] MEDS: levothyroxine 88 mcg Tablet PO (04:48)
[2021-01-09] MEDS: aspirin 81 mg EC Tablet PO (04:48)
[2021-01-09] MEDS: metoprolol tartrate 50 mg Tablet PO ×2 (04:48→17:46)
[2021-01-09] MEDS: amlodipine 10 mg Tablet PO (04:49)
--- NOTE | 2021-01-09 04:50 | ECG_ITS ---
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 Measurements Intervals [place] Rate: 70 P: 1 [place]: 207 QRS: -13 QRSD: 100 T: 30 QT: 417 QTc: 452 Interpretive Statements SINUS RHYTHM POSSIBLE ANTERIOR MYOCARDIAL INFARCTION , PROBABLY OLD [30 ms Q WAVE IN V3/V4, OR R < 0.2 mV IN V4] Compared to ECG 01/09/2021 01:22:09 No significant changes Electronically Signed On 01-09-2021 13:05:01 CDT by Tory Lopez M.D. [id number]
--- NOTE | 2021-01-09 05:02 | PC.NURSE ---
Patient c/o chest pain 07/27. He states he can't sleep because of it. VSS. Patient does not appear to be in any distress. EKG taken. Dr. Durant notified. No new orders at this time.
[2021-01-09 06:30] LABS: Glucose Point of Care 112 mg/dL (70-110)
[2021-01-09] MEDS: promethazine 25 mg Tablet PO ×2 (06:42→21:06)
[2021-01-09] MEDS: HYDROcodone-acetaminophen 5-325 mg Tablet 1 TAB PO ×2 (06:42→12:27)
--- NOTE | 2021-01-09 06:48 | PC.NURSE ---
Patient c/o chest pain 10/27, stating it radiates to my left arm and jaw. Dr. Durant notified. Patient requesting PRN [place]. Patient refusing SL nitro at this time.
[2021-01-09 07:31] LABS: Basophils # 0.1 10^3/uL (0.0-0.1); Basophils % 1.2 %; Eosinophils # 0.4 10^3/uL (0.0-0.8); Eosinophils % 4.9 %; Hematocrit 37.2 % (42.0-52.0); Hemoglobin 12.2 g/dL (11.7-16.6); Lymphocytes # 2.1 10^3/uL (0.8-4.8); Lymphocytes % 28.1 %; Mean Corpuscular HGB Conc 32.8 g/dL (30.0-36.0); Mean Corpuscular Volume 88.6 fl (80-94); Mean Platelet Volume 10.1 fL (7.4-10.4); Monocytes # 0.7 10^3/uL (0.2-0.9); Neutrophils # 4.07 10^3/uL (1.8-7.7); Neutrophils % 55.3 %; Nucleated Red Blood Cells % 0 %; Platelet Count 287 10^3/cmm (130-400); Red Cell Distribution Width 14.9 % (12.1-15.1); White Blood Count 7.4 10^3/uL (4.0-10.0)
[2021-01-09 07:51] LABS: Alanine Aminotransferase 13 U/L (0-41); Albumin Level 3.3 g/dL (3.5-5.2); Alkaline Phosphatase 103 IU/L (40-130); Blood Urea Nitrogen 28 mg/dL (6-20); Calcium 8.4 mg/dL (8.5-10.5); Carbon Dioxide 23 mmol/L (22-29); Chloride 104 mmol/L (98-107); Glomerular Filtration Rate 42.5 mL/min (90-130); Glucose 104 mg/dL (65-115); Osmolality Calculated 294 mOsm/kg (285-295); Sodium 139 mmol/L (136-145); Total Bilirubin 0.5 mg/dL (0.15-1.2); Total Protein 6.3 g/dL (6.6-8.7)
[2021-01-09 07:54] LABS: Anion Gap 16.7 (5-19); Aspartate Amino Transferase 20 U/L (0-40); Potassium 4.7 mmol/L (3.5-5.1)
[2021-01-09] MEDS: cyclobenzaprine 10 mg Tablet PO ×2 (09:21→20:49)
[2021-01-09] MEDS: apixaban 5 mg Tablet 2.5 MG PO (09:21)
[2021-01-09] MEDS: ranolazine (12HR) 500 mg Tablet PO ×2 (09:21→20:49)
[2021-01-09] MEDS: atorvastatin 40 mg Tablet PO (09:22)
[2021-01-09] MEDS: citalopram 20 mg Tablet 40 MG PO (09:22)
[2021-01-09] MEDS: pantoprazole DR 40 mg Tablet PO (09:23)
[2021-01-09] MEDS: FUROsemide 10 mg/mL SDV 10mL 60 MG IVP ×2 (11:03→22:34)
[2021-01-09 11:27] LABS: Glucose Point of Care 205 mg/dL (70-110)
--- NOTE | 2021-01-09 11:51 | P.CONIM_ITS ---
Providers/Reason For Consult Consulting Physician/Specialty*: Garrison Mckinney MD/Cardiology Reason for Consult*: Worsening angina/CHF exacerbation Requesting Physician: Dr Juarez Attending Physician: Jaydon Juarez MD Primary Care Provider: Kp Montanez DO History of Present Illness History of Present Illness Rei Queen II is a 50 year old male medical history of coronary artery disease s/p multiple stents, diabetes, CKD, hypertension and hyperlipidemia who presented to hospital with complaints of chest pain, shortness of breath and weight gain. According to patient over the last few days he has gained about 6 to 7 pounds of weight. He was also experiencing on and off for significant chest pain that is radiating to the jaw. He is on Ranexa and Imdur. Troponins were mildly elevated without any significant delta. EKG did not show acute ischemic changes. He is diuresing well with IV diuretics. Review of Systems General: Reports: 10 or more systems reviewed and unremarkable except in HPI and below Meds/Allergies Home Medications and Allergies Home Medications Medication Instructions Recorded Confirmed Last Taken Type aspirin 81 mg tablet,delayed 81 mg PO DAILY@0600 06/01/19 01/08/21 01/08/21 History release dulaglutide 0.75 mg/0.5 mL 0.75 mg SUBCUT Q7D 06/01/19 01/08/21 01/07/21 History subcutaneous pen injector levothyroxine 88 mcg capsule 88 mcg PO DAILY@0600 06/01/19 01/08/21 01/08/21 History metoprolol tartrate 50 mg tablet 50 mg PO BID@0600,1800 06/01/19 01/08/21 01/08/21 History multivitamin 1 tab PO QPM 06/01/19 01/08/21 01/07/21 History diabetic shoes #1 ea 06/09/19 01/08/21 07/06/19 Rx cyclobenzaprine 10 mg PO TID PRN 01/07/20 01/08/21 11/13/20 History [place] #1 ea 01/28/20 01/08/21 Unknown Rx amlodipine 10 mg PO DAILY@0600 04/08/20 01/08/21 01/08/21 History isosorbide mononitrate 30 mg PO BID@0600,1800 09/05/20 01/08/21 01/08/21 History acetaminophen [Tylenol Extra 1,000 mg PO PRN 09/25/20 01/08/21 11/13/20 History Strength] insulin lispro [Humalog U-100 See Rx Instructions .ROUTE .COMPLEX 09/25/20 01/08/21 01/08/21 History Insulin] 10 UNITS metformin 500 mg PO BID@06,18 09/25/20 01/08/21 01/08/21 History promethazine 25 mg PO Q6H PRN 09/25/20 01/08/21 01/08/21 History nitroglycerin 0.4 mg sublingual 0.4 mg SUBLINGUAL Q5M PRN #25 tab 10/10/20 01/08/21 Unknown Rx tablet apixaban 2.5 mg tablet 2.5 mg PO Q12H #60 tab 10/18/20 01/08/21 01/08/21 Rx citalopram 40 mg tablet 40 mg PO DAILY #30 tab 11/01/20 01/08/21 01/07/21 Rx insulin degludec 100 unit/mL (3 15 unit SUBCUT .bedtime ml 11/01/20 01/08/21 01/07/21 History mL) subcutaneous pen atorvastatin 40 mg PO DAILY 11/04/20 01/08/21 01/07/21 History furosemide 40 mg PO BID 11/04/20 01/08/21 01/08/21 History 80 MG hydrocodone 5 mg-acetaminophen 325 1 tab PO BID PRN 30 Days #60 tab 12/27/20 01/08/21 Unknown Rx mg tablet pantoprazole 40 mg PO DAILY 01/08/21 01/08/21 01/07/21 History ranolazine 500 mg PO BID 01/08/21 01/08/21 01/08/21 History trazodone 100 mg PO BEDTIME PRN 01/08/21 01/08/21 Unknown History Allergies Allergy/AdvReac Type Severity Reaction Status Date / Time Sulfa (Sulfonamide Allergy Severe ALGY-Difficulty Verified 01/08/21 22:17 Antibiotics) Breathing haloperidol [From Haldol] Allergy ADR-Irritab Verified 01/08/21 22:17 le Iodinated Contrast Media Allergy ALGY-Difficulty Verified 01/08/21 22:17 Breathing iodine Allergy ALGY-Difficulty Verified 01/08/21 22:17 Breathing ketorolac Allergy ADR-Nausea Verified 01/08/21 22:17 metoclopramide [From Reglan] Allergy ALGY-Difficulty Verified 01/08/21 22:17 Breathing nalbuphine [From Nubain] Allergy ADR-Diarrhe Verified 01/08/21 22:17 a naproxen [From Naprosyn] Allergy ADR-Vomitin Verified 01/08/21 22:17 g ondansetron [From Zofran] Allergy ADR-Abdominal Verified 01/08/21 22:17 Pain prochlorperazine Allergy ADR-Irritab Verified 01/08/21 22:17 [From Compazine] le codeine AdvReac Mild ALGY-Anaphy Verified 01/08/21 16:59 laxis Current Medications Current Medications Generic Name Dose Route Start Last Admin Trade Name Freq PRN Reason Stop Dose Admin Hydrocodone Bitart/Acetaminophen 1 tab 01/08/21 22:22 01/09/21 06:42 Hydrocodone-Acetaminophen 5-325 Mg Tablet PO 1 tab Q6H PRN Administration MODERATE TO SEVERE PAIN Amlodipine Besylate 10 mg 01/09/21 06:00 01/09/21 04:49 Amlodipine 10 Mg Tablet PO 10 mg DAILY@0600 RANDY Administration Apixaban 2.5 mg 01/08/21 22:41 01/09/21 09:21 Apixaban 5 Mg Tablet PO 2.5 mg BID@0900,2100 RANDY Administration Aspirin 81 mg 01/09/21 06:00 01/09/21 04:48 Aspirin 81 Mg Ec Tablet PO 81 mg DAILY@0600 RANDY Administration Atorvastatin Calcium 40 mg 01/09/21 09:00 01/09/21 09:22 Atorvastatin 40 Mg Tablet PO 40 mg DAILY RANDY Administration Citalopram Hydrobromide 40 mg 01/09/21 09:00 01/09/21 09:22 Citalopram 20 Mg Tablet PO 40 mg DAILY RANDY Administration Cyclobenzaprine HCl 10 mg 01/08/21 22:07 01/09/21 09:21 Cyclobenzaprine 10 Mg Tablet PO 10 mg TID PRN Administration MUSCLE SPASMS Furosemide 60 mg 01/08/21 22:30 01/09/21 11:03 Furosemide 10 Mg/Ml Sdv 10ml IVP 60 mg Q12H RANDY Administration Insulin Aspart 0 unit 01/09/21 08:00 01/09/21 08:30 Insulin Aspart 100 Unit/1 Ml SUBCUT Not Given TIDWM [facility] Protocol Isosorbide Mononitrate 30 mg 01/09/21 06:00 01/09/21 04:48 Isosorbide Mononitrate Er 30 Mg Tablet PO 30 mg BID@0600,1800 RANDY Administration Levothyroxine Sodium 88 mcg 01/09/21 06:00 01/09/21 04:48 Levothyroxine 88 Mcg Tablet PO 88 mcg DAILY@0600 RANDY Administration Metoprolol Tartrate 50 mg 01/08/21 22:45 01/09/21 04:48 Metoprolol Tartrate 50 Mg Tablet PO 50 mg BID@0600,1800 RANDY Administration Nitroglycerin 0.4 mg 01/08/21 22:07 01/09/21 02:25 Nitroglycerin 0.4 Mg Sublingual Tablet SUBLINGUAL 1 tab Q5M PRN Administration Chest Pain Pantoprazole Sodium 40 mg 01/09/21 09:00 01/09/21 09:[address] 40 Mg Tablet PO 40 mg DAILY RANDY Administration Promethazine HCl 25 mg 01/08/21 22:22 01/09/21 06:42 Promethazine 25 Mg Tablet PO 25 mg Q6H PRN Administration NAUSEA Ranolazine 500 mg 01/08/21 22:30 01/09/21 09:21 Ranolazine (12hr) 500 Mg Tablet PO 500 mg BID@ RANDY Administration Trazodone HCl 100 mg 01/08/21 22:45 01/08/21 23:07 Trazodone 50 Mg Tablet PO 100 mg BEDTIME PRN Administration insomnia PFSH Acute PFSH: Medical History Anemia Atherosclerotic heart disease of [place] coronary artery with other forms of angina pectoris hx of CAD with prior stenting of proximal LAD, LCx, RCA Chronic kidney disease -baseline Cr appears to be around 1.5 Chronic systolic heart failure EF=47%, diffuse LV hypokinesis, mildly increased LA size Depression Diabetes A1c-7.6 (08/2019) Foot drop, left GERD (gastroesophageal reflux disease) H/O acute myocardial infarction H/O deep venous thrombosis developed compartment syndrome Hyperlipidemia Hypertension Hypothyroidism Ischemic cardiomyopathy Osteoarthritis of spine Surgical History H/O colonoscopy (11/14/20) 08/2015 H/O esophagogastroduodenoscopy (11/14/20) 08/2015 H/O removal of testicle left H/O skin graft H/O vasectomy History of appendectomy 1995 History of coronary artery stent placement 5x History of excision of mass 06/08/2019: Subcutaneous mass on back History of inguinal hernia repair, bilateral 1999 History of removal of Port-a-Cath Hx of cholecystectomy Port-A-Cath in place Family History Grandfather Cancer skin cancer Parkinson disease Brother Hypertension Father Heart disease Mother Hypertension Stroke Aneurysm Grandmother Aneurysm Other Crohn disease Denies family history of Anesthesia complication Bleeding disorder Social History Smoking and tobacco status: never smoked Second hand smoke exposure: No Alcohol intake: former Former alcohol use details: Only holidays Lives independently: Yes Household members: significant other Marital status: Single Current occupational status: disabled History of recent travel: No Vitals/I&O/Wt Last Vital Signs Temp 98.2 F 01/09/21 08:00 Pulse 72 01/09/21 08:00 Resp 16 01/09/21 08:00 BP 124/76 01/09/21 08:00 Pulse Ox 92 01/09/21 08:00 01/08/21 01/09/21 01/09/21 22:59 06:59 14:59 Intake Total 300 / 300 360 / 360 Output Total 1100 / 1100 400 / 400 Balance -800 / -800 -40 / -40 Weight last 48 hrs Weight 230 lb Weight 240 lb Weight 240 lb Physical Exam Narrative: EXAM NARRATIVE: GENERAL: Patient is alert, awake and oriented x3. [] NECK: No jugular vein distension. [] HEENT: No cyanosis. No icterus. No pallor. [] HEART: Regular S1 and S2. No murmur, rub or gallop. [] LUNGS: Clear to auscultate bilaterally. [] ABDOMEN: Soft, nontender and nondistended. Positive bowel sounds. No guarding, rebound or tenderness. [] CENTRAL NERVOUS SYSTEM: Grossly nonfocal. [] EXTREMITIES: Lower extremities with 1+ edema bilaterally. Pulses palpable in the lower extremities, both dorsalis pedis and posterior tibial. [] A&P Assessment and plan (1) Chest pain: Status: Acute (2) CHF exacerbation: Status: Acute Qualifiers: Heart failure type: systolic Qualified Code(s): I50.23 - Acute on chronic systolic (congestive) heart failure (3) Chronic kidney disease: Status: Chronic Qualifiers: Chronic kidney disease stage: stage 3 (moderate) Chronic kidney disease stage 3 subtype: stage 3b (GFR 30-44) Qualified Code(s): N18.32 - Chronic kidney disease, stage 3b (4) Obesity (BMI 30-39.9): Status: Acute (5) DVT (deep venous thrombosis): Status: Acute Qualifiers: DVT location: upper extremity Affected thrombotic vein of extremity: other upper extremity vein Chronicity: acute Laterality: left Qualified Code(s): I82.622 - Acute embolism and thrombosis of deep veins of left upper extremity (6) Diabetes: Status: Chronic Qualifiers: Diabetes mellitus type: type 2 Diabetes mellitus [facility] insulin use: with [facility] use Diabetes mellitus complication status: with kidney complications Diabetes mellitus complication detail: with chronic kidney disease Chronic kidney disease stage: stage 3 (moderate) Chronic kidney disease stage 3 subtype: stage 3b (GFR 30-44) Qualified Code(s): E11.22 - Type 2 diabetes mellitus with diabetic chronic kidney disease; N18.32 - Chronic kidney disease, stage 3b; Z79.4 - [facility] (current) use of insulin (7) Atherosclerotic heart disease of [place] coronary artery with other forms of angina pectoris: Status: Chronic Patient has presented with chest pain that is concerning for unstable angina and CHF exacerbation. He is getting diuresed. He has CKD. After discussion with patient plan is to perform coronary angiogram on Saturday. We will stop Eliquis and put him on Lovenox. Continue IV diuretics for now. Continue aspirin and Ranexa. He has iodine allergy and will need premedication prior to coronary angiogram. Can repeat echocardiogram. His EF was normal on last echo that he had diastolic dysfunction. Thank you for involving us with care of this patient. We will continue to follow. Please call with questions. 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
--- NOTE | 2021-01-09 16:56 | P.PN_ITS ---
Subjective Subjective: Interval history: Patient was seen this morning, he continues to have episodes of intermittent chest pain, left-sided, pressure-like pain, radiating to his neck radiating to the back, no nausea, no vomiting, does feel short of breath, he does tell me his edema is improving with the Lasix, Vitals/I&O/Wt Last Vital Signs Temp 97.7 F 01/09/21 16:00 Pulse 74 01/09/21 16:00 Resp 14 01/09/21 16:00 BP 126/83 01/09/21 16:00 Pulse Ox 94 01/09/21 16:00 01/09/21 01/09/21 01/09/21 06:59 14:59 22:59 Intake Total 300 / 300 360 / 360 Output Total 1100 / 1100 400 / 400 Balance -800 / -800 -40 / -40 Weight last 48 hrs Weight 104.326 kg Weight 108.862 kg Weight 108.862 kg Physical Exam Const: COMMON NORMALS: no acute distress and patient oriented x3 Resp: COMMON NORMALS: normal respiratory effort, No retractions, No use of accessory muscles and clear to auscultation bilaterally AUSCULTATION: clear to auscultation bilaterally Cardio: COMMON NORMALS: regular rate, regular rhythm, S1 normal heart sound present and S2 normal heart sound present RATE: regular rate RHYTHM: regular rhythm HEART SOUNDS: S1 normal heart sound present and S2 normal heart sound present GI: COMMON NORMALS: Normal to inspection, nondistended, normoactive bowel sounds present, Soft to palpation, non-tender and No hepatosplenomegaly present PALPATION: Yes Soft to palpation and Yes No hepatosplenomegaly present Extremity: NARRATIVE EXTREMITY EXAM: 1+ pitting edema bilateral lower extremities Neuro: COMMON NORMALS: patient oriented x3 Psych: COMMON NORMALS: mental status grossly normal Data : 01/09/21 06:28 01/09/21 06:28 A&P Assessment and plan (1) CHF exacerbation: Status: Acute Qualifiers: Heart failure type: systolic Qualified Code(s): I50.23 - Acute on c hronic systolic (congestive) heart failure (2) Right groin pain: Known inguinal hernia Status: Acute (3) Atherosclerotic heart disease of [place] coronary artery with other forms of angina pectoris: Status: Chronic (4) Chronic systolic heart failure: Status: Chronic (5) Diabetes: Status: Chronic Qualifiers: Diabetes mellitus type: type 2 Diabetes mellitus intermediate insulin use: with predatory animal 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 use Diabetes mellitus complication status: with kidney complications Diabetes mellitus complication detail: with chronic kidney disease Chronic kidney disease stage: stage 3 (moderate) Chronic kidney disease stage 3 subtype: stage 3b (GFR 30-44) Qualified Code(s): E11.22 - Type 2 diabetes mellitus with diabetic chronic kidney disease; N18.32 - Chronic kidney disease, stage 3b; Z79.4 - senior care (current) use of insulin (6) Chronic kidney disease: Status: Chronic Qualifiers: Chronic kidney disease stage: stage 3 (moderate) Chronic kidney disease stage 3 subtype: stage 3b (GFR 30-44) Qualified Code(s): N18.32 - Chronic kidney disease, stage 3b (7) Chronic anticoagulation: Eliquis Status: Chronic (8) Chest pain: Status: Acute Additional A&P Information Chest pain -Baseline troponin 25, 6-hour 24.55, delta -0.45 -EKG no acute ST-T wave changes -Angiogram November 2019 showed continue chest pain with multiple previous stent placement in all 3 vessels all of which are patent, no left ventriculogram done secondary to renal insufficiency -He is on aspirin, Eliquis, statin, Imdur, Ranexa Plan: -Continues to have episodes of chest pain -Continue Eliquis, aspirin, statin, Imdur, Ranexa -Nitro as needed for chest pain -Consult cardiology CHF exacerbation, diastolic -BNP 2154 -Continue Lasix 60 mg IV twice daily -Fluid restrictions 1500 cc -Creatinine is 1.7 -Monitor ins and outs -Monitor creatinine, monitor urine output -Telemetry monitoring Insulin-dependent type 2 diabetes mellitus, continue sliding scale, glargine Hypothyroidism, continue levothyroxine Hypertension, continue beta-zaira GERD, continue Protonix Chronic pain, continue hydrocodone Anticipate discharge home Continue home Eliquis which will provide appropriate VTE prophylaxis Full code Attestations Medical Necessity Statement*: Patient requires hospitalization, inpatient, greater than 2 midnights, for chest pain, diastolic CHF exacerbation Coding Level of Care Code 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 [facility] Fwd Diagnoses CHF exacerbation I50.23 Heart failure type: systolic Right groin pain R10.31 Atherosclerotic heart disease of [place] coronary 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 Chronic systolic heart failure I50.22 Diabetes E11.22; N18.32; Z79.4 Diabetes mellitus type: type 2 Diabetes mellitus intermediate insulin use: with intermediate use Diabetes mellitus complication status: with kidney complications Diabetes mellitus complication detail: with chronic kidney disease Chronic kidney disease stage: stage 3 (moderate) Chronic kidney disease stage 3 subtype: stage 3b (GFR 30-44) Chronic kidney disease N18.32 Chronic kidney disease stage: stage 3 (moderate) Chronic kidney disease stage 3 subtype: stage 3b (GFR 30-44) Chronic anticoagulation Z79.01 Chest pain R07.9
[2021-01-09 16:57] LABS: Glucose Point of Care 143 mg/dL (70-110)
[2021-01-09] MEDS: multivitamin therapeutic Tablet 1 TAB PO (17:45)
--- NOTE | 2021-01-09 19:58 | PC.NURSE ---
Shift Note Frequent safety and comfort rounds continue. Orders and/or nursing care completed as indicated. Patient monitored for response to intervention and treatment(s). Education provided includes instructions in fluid restriction. Patient and/or automotive sales representative verb understanding of instructions]. Will continue to monitor.
[2021-01-09] MEDS: trazodone 50 mg Tablet 100 MG PO (20:49)
[2021-01-09] MEDS: enoxaparin 100 mg/mL Syringe SUBCUT (20:50)
[2021-01-09] MEDS: insulin glargine 100 units/1 mL 8 UNIT SUBCUT (21:06)
[2021-01-09] MEDS: morphine 4 mg/mL SDV 1 mL 2 MG IVP (21:07)
[2021-01-09 21:39] LABS: Glucose Point of Care 160 mg/dL (70-110)
[2021-01-10] VITALS (11 sets, daily range): BP systolic 107–143; BP diastolic 80–83; PULSE 73–78; RESP 14–18; TEMP 36.4–36.9; O2SAT 93–97
[2021-01-10] MEDS: morphine 4 mg/mL SDV 1 mL 2 MG IVP ×4 (04:24→21:54)
[2021-01-10 04:59] LABS: Basophils # 0.1 10^3/uL (0.0-0.1); Basophils % 1.1 %; Eosinophils # 0.3 10^3/uL (0.0-0.8); Eosinophils % 3.9 %; Hemoglobin 12.3 g/dL (11.7-16.6); Lymphocytes # 2.4 10^3/uL (0.8-4.8); Lymphocytes % 27.4 %; Mean Corpuscular HGB Conc 30.8 g/dL (30.0-36.0); Mean Corpuscular Hemoglobin 29.6 pg (28.0-34.0); Mean Corpuscular Volume 96.4 fl (80-94); Mean Platelet Volume 9.9 fL (7.4-10.4); Monocytes # 0.7 10^3/uL (0.2-0.9); Monocytes % 8.3 %; Neutrophils # 5.13 10^3/uL (1.8-7.7); Nucleated Red Blood Cells % 0 %; Platelet Count 305 10^3/cmm (130-400); Red Blood Count 4.15 10^6/uL (4.1-5.3); Red Cell Distribution Width 15.6 % (12.1-15.1); White Blood Count 8.7 10^3/uL (4.0-10.0)
[2021-01-10] MEDS: amlodipine 10 mg Tablet PO (05:28)
[2021-01-10] MEDS: levothyroxine 88 mcg Tablet PO (05:29)
[2021-01-10] MEDS: isosorbide mononitrate ER 30 mg Tablet PO ×2 (05:29→19:09)
[2021-01-10] MEDS: metoprolol tartrate 50 mg Tablet PO ×2 (05:29→19:10)
[2021-01-10] MEDS: aspirin 81 mg EC Tablet PO (05:29)
[2021-01-10 05:32] LABS: Alanine Aminotransferase 12 U/L (0-41); Albumin Level 3.6 g/dL (3.5-5.2); Alkaline Phosphatase 111 IU/L (40-130); Blood Urea Nitrogen 37 mg/dL (6-20); Calcium 8.4 mg/dL (8.5-10.5); Carbon Dioxide 25 mmol/L (22-29); Chloride 101 mmol/L (98-107); Globulin 3.2 g/dL (1.3-4.6); Glucose 149 mg/dL (65-115); Magnesium 2.1 mg/dL (1.7-2.3); NT Pro B Type Natriuretic Pept 1243 pg/mL (0-125); Osmolality Calculated 297 mOsm/kg (285-295); Sodium 138 mmol/L (136-145); Total Bilirubin 0.5 mg/dL (0.15-1.2); Total Protein 6.8 g/dL (6.6-8.7)
[2021-01-10 05:34] LABS: Anion Gap 16.4 (5-19); Aspartate Amino Transferase 18 U/L (0-40); Potassium 4.4 mmol/L (3.5-5.1)
[2021-01-10 05:56] LABS: Slide Review Slide Review Perform
--- NOTE | 2021-01-10 06:07 | PC.NURSE ---
Shift Note Frequent safety and comfort rounds continue. Orders and/or nursing care completed as indicated. Patient monitored for response to intervention and treatment(s). Education provided includes reportable signs and symptoms, medications. Patient and/or representative phlebotomy services verbalized understanding of all teaching.
[2021-01-10 06:37] LABS: Glucose Point of Care 173 mg/dL (70-110)
[2021-01-10] MEDS: atorvastatin 40 mg Tablet PO (08:29)
[2021-01-10] MEDS: ranolazine (12HR) 500 mg Tablet PO ×2 (08:29→20:05)
[2021-01-10] MEDS: pantoprazole DR 40 mg Tablet PO (08:29)
[2021-01-10] MEDS: citalopram 20 mg Tablet 40 MG PO (08:29)
[2021-01-10] MEDS: enoxaparin 100 mg/mL Syringe SUBCUT ×2 (09:37→20:29)
--- NOTE | 2021-01-10 11:34 | PM.PN ---
Subjective Subjective: Interval history: Patient was seen this morning, he tells me that his breathing has improved, but he continues to have intermittent episodes of left-sided chest pain, no lightheadedness, no dizziness, no nausea, no vomiting Vitals/I&O/Wt Last Vital Signs Temp 98.1 F 01/10/21 07:45 Pulse 78 01/10/21 07:45 Resp 18 01/10/21 08:35 BP 107/83 01/10/21 07:45 Pulse Ox 96 01/10/21 08:35 01/09/21 01/10/21 01/10/21 22:59 06:59 14:59 Intake Total 300 / 660 350 / 1010 Output Total 1000 / 1400 1600 / 3000 Balance -700 / -740 -1250 / -1990 Weight last 48 hrs Weight 104.326 kg Weight 108.862 kg Weight 108.862 kg Physical Exam Const: COMMON NORMALS: no acute distress and patient oriented x3 Resp: COMMON NORMALS: normal respiratory effort, No retractions, No use of accessory muscles and clear to auscultation bilaterally AUSCULTATION: clear to auscultation bilaterally Cardio: COMMON NORMALS: regular rate, regular rhythm, S1 normal heart sound present and S2 normal heart sound present RATE: regular rate RHYTHM: regular rhythm HEART SOUNDS: S1 normal heart sound present and S2 normal heart sound present GI: COMMON NORMALS: Normal to inspection, nondistended, normoactive bowel sounds present, Soft to palpation and non-tender PALPATION: Yes Soft to palpation Extremity: NARRATIVE EXTREMITY EXAM: 1+ pedal edema Neuro: COMMON NORMALS: patient oriented x3 Psych: COMMON NORMALS: mental status grossly normal Data : 01/10/21 03:55 01/10/21 03:55 A&P Assessment and plan (1) CHF exacerbation: Status: Acute Qualifiers: Heart failure type: systolic Qualified Code(s): I50.23 - Acute on chronic systolic (congestive) heart failure (2) Right groin pain: Known inguinal hernia Status: Acute (3) 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 (4) Chronic systolic heart failure: Status: Chronic (5) Diabetes: Status: Chronic Qualifiers: Diabetes mellitus type: type 2 Diabetes mellitus retirement insulin use: with retirement use Diabetes mellitus complication status: with kidney complications Diabetes mellitus complication detail: with chronic kidney disease Chronic kidney disease stage: stage 3 (moderate) Chronic kidney disease stage 3 subtype: stage 3b (GFR 30-44) Qualified Code(s): E11.22 - Type 2 diabetes mellitus with diabetic chronic kidney disease; N18.32 - Chronic kidney disease, stage 3b; Z79.4 - group home (current) use of insulin (6) Chronic kidney disease: Status: Chronic Qualifiers: Chronic kidney disease stage: stage 3 (moderate) Chronic kidney disease stage 3 subtype: stage 3b (GFR 30-44) Qualified Code(s): N18.32 - Chronic kidney disease, stage 3b (7) Chronic anticoagulation: Eliquis Status: Chronic (8) Chest pain: Status: Acute Additional A&P Information Chest pain -Baseline troponin 25, 6-hour 24.55, delta -0.45 -EKG no acute ST-T wave changes -Angiogram November 2019 showed continue chest pain with multiple previous stent placement in all 3 vessels all of which are patent, no left ventriculogram done secondary to renal insufficiency -He is on aspirin, Eliquis, statin, Imdur, Ranexa Plan: -Continues to have episodes of chest pain - aspirin, statin, Imdur, Ranexa -Switch from Eliquis to therapeutic Lovenox -Nitro as needed for chest pain -Consult cardiology, possible cardiac catheterization tomorrow CHF exacerbation, diastolic -BNP 1243 - -2.7L - cr 2.3 -Decreased to Lasix 60 mg IV daily -Fluid restrictions 1500 cc -Monitor ins and outs -Monitor creatinine, monitor urine output -Telemetry monitoring Insulin-dependent type 2 diabetes mellitus, continue sliding scale, glargine Hypothyroidism, continue levothyroxine Hypertension, continue beta-zaira GERD, continue Protonix Chronic pain, continue hydrocodone Anticipate discharge home Therapeutic Lovenox which will provide appropriate VTE prophylaxis Full code Attestations Medical Necessity Statement*: Patient requires hospitalization for CHF exacerbation, chest pain Coding Level of Care Code Acute Machine Tool Rebuilder for [facility] Diagnoses CHF exacerbation I50.23 Heart failure type: systolic Right groin pain R10.31 Atherosclerotic heart disease of [place] coronary 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 Chronic systolic heart failure I50.22 Diabetes E11.22; N18.32; Z79.4 Diabetes mellitus type: type 2 Diabetes mellitus technician terminal and repeater insulin use: with retirement use Diabetes mellitus complication status: with kidney complications Diabetes mellitus complication detail: with chronic kidney disease Chronic kidney disease stage: stage 3 (moderate) Chronic kidney disease stage 3 subtype: stage 3b (GFR 30-44) Chronic kidney disease N18.32 Chronic kidney disease stage: stage 3 (moderate) Chronic kidney disease stage 3 subtype: stage 3b (GFR 30-44) Chronic anticoagulation Z79.01 Chest pain R07.9
--- NOTE | 2021-01-10 11:39 | PM.PN ---
Subjective Subjective: Interval history: Shortness of breath has improved significantly however continues having intermittent chest pain symptoms which are typical. Vitals/I&O/Wt Last Vital Signs Temp 98.1 F 01/10/21 07:45 Pulse 78 01/10/21 07:45 Resp 18 01/10/21 08:35 BP 107/83 01/10/21 07:45 Pulse Ox 96 01/10/21 08:35 01/09/21 01/10/21 01/10/21 22:59 06:59 14:59 Intake Total 300 / 660 350 / 1010 Output Total 1000 / 1400 1600 / 3000 Balance -700 / -740 -1250 / -1990 Weight last 48 hrs Weight 230 lb Weight 240 lb Weight 240 lb Physical Exam Narrative: EXAM NARRATIVE: GENERAL: Patient is alert, awake and oriented x3. [] NECK: No jugular vein distension. [] HEENT: No cyanosis. No icterus. No pallor. [] HEART: Regular S1 and S2. No murmur, rub or gallop. [] LUNGS: Clear to auscultate bilaterally. [] ABDOMEN: Soft, nontender and nondistended. Positive bowel sounds. No guarding, rebound or tenderness. [] CENTRAL NERVOUS SYSTEM: Grossly nonfocal. [] EXTREMITIES: Lower extremities with 1+ edema bilaterally. Pulses palpable in the lower extremities, both dorsalis pedis and posterior tibial. [] Data : 01/10/21 03:55 01/10/21 03:55 A&P Assessment and plan (1) Chest pain: Status: Acute (2) CHF exacerbation: Status: Acute Qualifiers: Heart failure type: systolic Qualified Code(s): I50.23 - Acute on chronic systolic (congestive) heart failure (3) Chronic kidney disease: Status: Chronic Qualifiers: Chronic kidney disease stage: stage 3 (moderate) Chronic kidney disease stage 3 subtype: stage 3b (GFR 30-44) Qualified Code(s): N18.32 - Chronic kidney disease, stage 3b (4) Obesity (BMI 30-39.9): Status: Acute (5) DVT (deep venous thrombosis): Status: Acute Qualifiers: DVT location: upper extremity Affected thrombotic vein of extremity: other upper extremity vein Chronicity: acute Laterality: left Qualified Code(s): I82.622 - Acute embolism and thrombosis of deep veins of left upper extremity (6) Diabetes: Status: Chronic Qualifiers: Diabetes mellitus type: type 2 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 use Diabetes mellitus complication status: with kidney complications Diabetes mellitus complication detail: with chronic kidney disease Chronic kidney disease stage: stage 3 (moderate) Chronic kidney disease stage 3 subtype: stage 3b (GFR 30-44) Qualified Code(s): E11.22 - Type 2 diabetes mellitus with diabetic chronic kidney disease; N18.32 - Chronic kidney disease, stage 3b; Z79.4 - keno terminal operator (current) use of insulin (7) Atherosclerotic heart disease of [place] coronary artery with other forms of angina pectoris: Status: Chronic Patient's chest pain symptoms are concerning for unstable angina. For his CHF exacerbation, he has diuresed well. His kidney function however has worsened with creatinine of 2.3 today. We will hold diuretics from now. Patient will be hydrated tonight. Will check creatinine in the morning and if it comes back to baseline, we will proceed with coronary angiogram. Risk of contrast-induced nephropathy discussed with the patient. He understands the risk and benefit and wants to proceed with the procedure. Hold Lasix. Continue aspirin and Ranexa. Premedication ordered for coronary angiogram tomorrow. N.p.o. past midnight. Thank you for involving us with care of this patient. We will continue to follow. Please call with questions. Attestations Medical Necessity Statement*: Care expected to cross 2 midnights. 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
[2021-01-10] MEDS: FUROsemide 10 mg/mL SDV 10mL 60 MG IVP (12:01)
[2021-01-10] MEDS: sucralfate 1 gm Tablet PO ×2 (12:02→23:57)
[2021-01-10 12:16] LABS: Glucose Point of Care 198 mg/dL (70-110)
[2021-01-10] MEDS: promethazine 25 mg Tablet PO ×2 (15:08→20:05)
[2021-01-10 16:48] LABS: Glucose Point of Care 127 mg/dL (70-110)
[2021-01-10] MEDS: multivitamin therapeutic Tablet 1 TAB PO (19:10)
[2021-01-10] MEDS: predniSONE 20 mg Tablet 40 MG PO (19:11)
--- NOTE | 2021-01-10 19:25 | PC.NURSE ---
Shift Note Frequent safety and comfort rounds continue. Orders and/or nursing care completed as indicated. Patient monitored for response to intervention and treatment(s). Education provided includes up coming procedure. Patient and/or branch service representative. Will continue to monitor.
[2021-01-10] MEDS: trazodone 50 mg Tablet 100 MG PO (20:05)
[2021-01-10] MEDS: cyclobenzaprine 10 mg Tablet PO (20:06)
[2021-01-10] MEDS: insulin glargine 100 units/1 mL 8 UNIT SUBCUT (20:59)
[2021-01-11] VITALS (10 sets, daily range): BP systolic 121–137; BP diastolic 71–80; PULSE 76–88; RESP 16–19; TEMP 36.8; O2SAT 91–94
[2021-01-11] MEDS: predniSONE 20 mg Tablet 40 MG PO ×2 (00:24→18:55)
[2021-01-11 04:45] LABS: Basophils # 0.1 10^3/uL (0.0-0.1); Basophils % 0.6 %; Eosinophils % 0.1 %; Hematocrit 37.5 % (42.0-52.0); Lymphocytes % 10.3 %; Mean Corpuscular Hemoglobin 28.8 pg (28.0-34.0); Mean Corpuscular Volume 89.9 fl (80-94); Monocytes # 0.1 10^3/uL (0.2-0.9); Monocytes % 1.5 %; Neutrophils # 8.08 10^3/uL (1.8-7.7); Neutrophils % 87.1 %; Nucleated Red Blood Cells % 0 %; Platelet Count 313 10^3/cmm (130-400); Red Blood Count 4.17 10^6/uL (4.1-5.3); Red Cell Distribution Width 14.8 % (12.1-15.1); White Blood Count 9.3 10^3/uL (4.0-10.0)
[2021-01-11 05:21] LABS: Alanine Aminotransferase 13 U/L (0-41); Albumin Level 3.6 g/dL (3.5-5.2); Alkaline Phosphatase 114 IU/L (40-130); Aspartate Amino Transferase 15 U/L (0-40); Blood Urea Nitrogen 50 mg/dL (6-20); Calcium 8.5 mg/dL (8.5-10.5); Carbon Dioxide 24 mmol/L (22-29); Chloride 100 mmol/L (98-107); Globulin 3.1 g/dL (1.3-4.6); Glomerular Filtration Rate 27.3 mL/min (90-130); Glucose 301 mg/dL (65-115); Magnesium 2.3 mg/dL (1.7-2.3); NT Pro B Type Natriuretic Pept 633 pg/mL (0-125); Osmolality Calculated 307 mOsm/kg (285-295); Phosphorus 2.6 mg/dL (2.5-4.5); Sodium 136 mmol/L (136-145); Total Bilirubin 0.5 mg/dL (0.15-1.2); Total Protein 6.7 g/dL (6.6-8.7)
[2021-01-11] MEDS: isosorbide mononitrate ER 30 mg Tablet PO ×2 (05:26→18:56)
[2021-01-11] MEDS: amlodipine 10 mg Tablet PO (05:26)
[2021-01-11] MEDS: aspirin 81 mg EC Tablet PO (05:26)
[2021-01-11] MEDS: levothyroxine 88 mcg Tablet PO (05:26)
[2021-01-11] MEDS: metoprolol tartrate 50 mg Tablet PO ×2 (05:26→18:55)
[2021-01-11] MEDS: sodium chloride 0.9% 1,000 ML 75 ML IV ×2 (05:27→21:51)
[2021-01-11 05:29] LABS: Glucose Point of Care 151 mg/dL (70-110)
--- NOTE | 2021-01-11 05:47 | PC.NURSE ---
label coder nurseShannan called stating that they will not be taking patient to seed laboratory technician this morning due to elevated nuclear equipment sales engineer. Told to order BMP for tomorrow and will try again tomorrow.
[2021-01-11] MEDS: promethazine 25 mg Tablet PO ×3 (06:39→21:50)
[2021-01-11] MEDS: morphine 4 mg/mL SDV 1 mL 2 MG IVP ×3 (06:39→23:27)
[2021-01-11 06:58] LABS: Glucose Point of Care 315 mg/dL (70-110)
[2021-01-11 08:19] LABS: Glucose Point of Care 297 mg/dL (70-110)
[2021-01-11] MEDS: atorvastatin 40 mg Tablet PO (08:27)
[2021-01-11] MEDS: pantoprazole DR 40 mg Tablet PO (08:27)
[2021-01-11] MEDS: citalopram 20 mg Tablet 40 MG PO (08:27)
[2021-01-11] MEDS: ranolazine (12HR) 500 mg Tablet PO ×2 (08:27→21:50)
--- NOTE | 2021-01-11 10:06 | PC.SOCIAL ---
Pg 2 IMM Explained to pt Pg 2 IMM. No questions voiced. Provided pt a copy. Initialed, dated, & timed a copy & placed in chart.
[2021-01-11 11:11] LABS: Glucose Point of Care 354 mg/dL (70-110)
--- NOTE | 2021-01-11 11:14 | P.PN_ITS ---
Subjective Subjective: Interval history: Patient patient continues having on and off chest pain symptoms concerning for unstable angina. Initial plan was to perform coronary angiogram today however his creatinine has worsened. Will need further hydration before proceeding with coronary angiogram Vitals/I&O/Wt Last Vital Signs Temp 98.2 F 01/10/21 20:00 Pulse 81 01/11/21 05:08 Resp 18 01/11/21 06:39 BP 130/79 01/11/21 04:00 Pulse Ox 93 01/11/21 06:39 01/10/21 01/11/21 01/11/21 22:59 06:59 14:59 Intake Total 120 / 357 252.5 / 609.5 0 / 0 Output Total 550 / 550 1900 / 2450 Balance -430 / -193 -1647.5 / -1840.5 0 / 0 Weight last 48 hrs Weight 221 lb Weight 221 lb Physical Exam Narrative: EXAM NARRATIVE: GENERAL: Patient is alert, awake and oriented x3. [] NECK: No jugular vein distension. [] HEENT: No cyanosis. No icterus. No pallor. [] HEART: Regular S1 and S2. No murmur, rub or gallop. [] LUNGS: Clear to auscultate bilaterally. [] ABDOMEN: Soft, nontender and nondistended. Positive bowel sounds. No guarding, rebound or tenderness. [] CENTRAL NERVOUS SYSTEM: Grossly nonfocal. [] EXTREMITIES: Lower extremities with 1+ edema bilaterally. Pulses palpable in the lower extremities, both dorsalis pedis and posterior tibial. [] Data : 01/12/21 04:38 01/12/21 04:38 A&P Assessment and plan (1) Chest pain: Status: Acute (2) CHF exacerbation: Status: Acute Qualifiers: Heart failure type: systolic Qualified Code(s): I50.23 - Acute on chron ic systolic (congestive) heart failure (3) Chronic kidney disease: Status: Chronic Qualifiers: Chronic kidney disease stage: stage 3 (moderate) Chronic kidney disease stage 3 subtype: stage 3b (GFR 30-44) Qualified Code(s): N18.32 - Chronic kidney disease, stage 3b (4) Obesity (BMI 30-39.9): Status: Acute (5) DVT (deep venous thrombosis): Status: Acute Qualifiers: DVT location: upper extremity Affected thrombotic vein of extremity: other upper extremity vein Chronicity: acute Laterality: left Qualified Code(s): I82.622 - Acute embolism and thrombosis of deep veins of left upper extremity (6) Diabetes: Status: Chronic Qualifiers: Diabetes mellitus type: type 2 Diabetes mellitus drum saw operator insulin use: with drum saw operator use Diabetes mellitus complication status: with kidney complications Diabetes mellitus complication detail: with chronic kidney disease Chronic kidney disease stage: stage 3 (moderate) Chronic kidney disease stage 3 subtype: stage 3b (GFR 30-44) Qualified Code(s): E11.22 - Type 2 diabetes mellitus with diabetic chronic kidney disease; N18.32 - Chronic kidney disease, stage 3b; Z79.4 - [facility] (current) use of insulin (7) Atherosclerotic heart disease of [place] coronary artery with other forms of angina pectoris: Status: Chronic Patient's chest pain symptoms are concerning for unstable angina. For his CHF exacerbation, he has diuresed well. His kidney function however worsened his diuretics were held and he was hydrated overnight. His cardiac c atheterization has been postponed. We will continue with hydration today and if creatinine starts improving tomorrow we will proceed with coronary angiogram as he is continuing to have chest pain symptoms. Risk of contrast-induced nephropathy discussed with the patient. He understands the risk and benefit and wants to proceed with the procedure. Hold Lasix. Continue aspirin and Ranexa. Premedication ordered for coronary angiogram tomorrow. N.p.o. past midnight. Thank you for involving us with care of this patient. We will continue to follow. Please call with questions. Attestations Medical Necessity Statement*: Care expected to cross 2 midnights. Coding Level of Care Code Acute Sports Announcer for [facility] Fwd Diagnoses Chest pain R07.9 CHF exacerbation I50.23 Heart failure type: systolic Chronic kidney disease N18.32 Chronic kidney disease stage: stage 3 (moderate) Chronic kidney disease stage 3 subtype: stage 3b (GFR 30-44) Obesity (BMI 30-39.9) E66.9 DVT (deep venous thrombosis) I82.622 DVT location: upper extremity Affected thrombotic vein of extremity: other upper extremity vein Chronicity: acute Laterality: left Diabetes E11.22; N18.32; Z79.4 Diabetes mellitus type: type 2 Diabetes mellitus halfway insulin use: with drum saw operator use Diabetes mellitus complication status: with kidney complications Diabetes mellitus complication detail: with chronic kidney disease Chronic kidney disease stage: stage 3 (moderate) Chronic kidney disease stage 3 subtype: stage 3b (GFR 30-44) Atherosclerotic heart disease of [place] coronary 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
[2021-01-11] MEDS: sucralfate 1 gm Tablet PO ×2 (12:15→23:26)
[2021-01-11] MEDS: enoxaparin 100 mg/mL Syringe SUBCUT ×2 (12:15→21:50)
--- NOTE | 2021-01-11 12:57 | P.PN_ITS ---
Subjective Subjective: Interval history: Patient was seen this morning, he tells me that the Protonix and the Carafate did not really help for his chest pain, continues to have episodes of chest pain, in the left side of his chest, denies any shortness of breath, his breathing has significantly improved, lower extremity edema has improved, and his creatinine is up to 2.5, Vitals/I&O/Wt Last Vital Signs Temp 98.2 F 01/10/21 20:00 Pulse 81 01/11/21 05:08 Resp 18 01/11/21 06:39 BP 130/79 01/11/21 04:00 Pulse Ox 93 01/11/21 06:39 01/10/21 01/11/21 01/11/21 22:59 06:59 14:59 Intake Total 120 / 357 252.5 / 609.5 0 / 0 Output Total 550 / 550 1900 / 2450 Balance -430 / -193 -1647.5 / -1840.5 0 / 0 Weight last 48 hrs Weight 100.244 kg Weight 100.244 kg Physical Exam Const: COMMON NORMALS: no acute distress and patient oriented x3 Resp: COMMON NORMALS: normal respiratory effort, No retractions, No use of accessory muscles and clear to auscultation bilaterally AUSCULTATION: clear to auscultation bilaterally Cardio: COMMON NORMALS: regular rate, regular rhythm, S1 normal heart sound present and S2 normal heart sound present RATE: regular rate RHYTHM: regular rhythm HEART SOUNDS: S1 normal heart sound present and S2 normal heart sound present GI: COMMON NORMALS: Normal to inspection, nondistended, normoactive bowel sounds present, Soft to palpation and non-tender PALPATION: Yes Soft to palpation Extremity: COMMON NORMALS: no pedal edema Neuro: COMMON NORMALS: patient oriented x3 Psych: COMMON NORMALS: mental status grossly normal Data : 01/11/21 04:22 01/11/21 04:22 A&P Assessment and plan (1) CHF exacerbation: Status: Acute Qualifiers: Heart failure type: systolic Qualified Code(s): I50.23 - Acute on chronic systolic (congestive) heart failure (2) Right groin pain: Known inguinal hernia Status: Acute (3) Atherosclerotic heart disease of [place] coronary artery with other forms of angina pectoris: Status: Chronic (4) Chronic systolic heart failure: Status: Chronic (5) Diabetes: Status: Chronic Qualifiers: Diabetes mellitus type: type 2 Diabetes mellitus care home insulin use: with marine oil terminal superintendent use Diabetes mellitus complication status: with kidney complications Diabetes mellitus complication detail: with chronic kidney disease Chronic kidney disease stage: stage 3 (moderate) Chronic kidney diseas e stage 3 subtype: stage 3b (GFR 30-44) Qualified Code(s): E11.22 - Type 2 diabetes mellitus with diabetic chronic kidney disease; N18.32 - Chronic kidney disease, stage 3b; Z79.4 - [facility] (current) use of insulin (6) Chronic kidney disease: Status: Chronic Qualifiers: Chronic kidney disease stage: stage 3 (moderate) Chronic kidney disease stage 3 subtype: stage 3b (GFR 30-44) Qualified Code(s): N18.32 - Chronic kidney disease, stage 3b (7) Chronic anticoagulation: Eliquis Status: Chronic (8) Chest pain: Status: Acute Additional A&P Information Chest pain -Baseline troponin 25, 6-hour 24.55, delta -0.45 -EKG no acute ST-T wave changes -Angiogram November 2019 showed continue chest pain with multiple previous stent placement in all 3 vessels all of which are patent, no left ventriculogram done secondary to renal insufficiency -He is on aspirin, Eliquis, statin, Imdur, Ranexa Plan: -Continues to have episodes of chest pain - aspirin, statin, Imdur, Ranexa -On therapeutic Lovenox -Nitro as needed for chest pain -Consult cardiology, creatinine up to 2.5, continue IV fluids, possible cardiac catheterization tomorrow CHF exacerbation, diastolic -BNP 1243 - -4.6 - cr 2.5 -Lasix on hold -Fluid restrictions 1500 cc -Monitor ins and outs -Monitor creatinine, monitor urine output -Telemetry monitoring Insulin-dependent type 2 diabetes mellitus, continue sliding scale, glargine Hypothyroidism, continue levothyroxine Hypertension, continue beta-zaira GERD, continue Protonix Chronic pain, continue hydrocodone Anticipate discharge home Therapeutic Lovenox which will provide appropriate VTE prophylaxis Full code Plan for today continue IV fluids, monitor creatinine, possible cardiac catheter ization tomorrow Attestations Medical Necessity Statement*: Patient requires hospitalization for CHF exacerb ation, chest pain Coding Level of Care Code Acute 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 [facility] Diagnoses CHF exacerbation I50.23 Heart failure type: systolic Right groin pain R10.31 Atherosclerotic heart disease of [place] coronary 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 Chronic systolic heart failure I50.22 Diabetes E11.22; N18.32; Z79.4 Diabetes mellitus type: type 2 Diabetes mellitus marine oil terminal superintendent insulin use: with marine oil terminal superintendent use Diabetes mellitus complication status: with kidney complications Diabetes mellitus complication detail: with chronic kidney disease Chronic kidney disease stage: stage 3 (moderate) Chronic kidney disease stage 3 subtype: stage 3b (GFR 30-44) Chronic kidney disease N18.32 Chronic kidney disease stage: stage 3 (moderate) Chronic kidney disease stage 3 subtype: stage 3b (GFR 30-44) Chronic anticoagulation Z79.01 Chest pain R07.9
[2021-01-11 18:45] LABS: Glucose Point of Care 354 mg/dL (70-110)
[2021-01-11] MEDS: multivitamin therapeutic Tablet 1 TAB PO (18:55)
--- NOTE | 2021-01-11 19:38 | PC.NURSE ---
Shift Note Frequent safety and comfort rounds continue. Orders and/or nursing care completed as indicated. Patient monitored for response to intervention and treatment(s). Education provided includes lab results and further plans for work up. Patient and/or door to door sales representative verbalized understanding. Will continue to monitor.
--- NOTE | 2021-01-11 19:54 | PC.NURSE ---
Shift Note Frequent safety and comfort rounds continue. Orders and/or nursing care completed as indicated. Patient monitored for response to intervention and treatment(s). Education provided includes lab results and medications. Patient and/or sales representative printing paper verbalized understanding. Will continue to monitor.
[2021-01-11 20:17] LABS: Anion Gap 18.4 (5-19); Blood Urea Nitrogen 60 mg/dL (6-20); Calcium 8.1 mg/dL (8.5-10.5); Carbon Dioxide 21 mmol/L (22-29); Chloride 97 mmol/L (98-107); Glomerular Filtration Rate 24.9 mL/min (90-130); Glucose 362 mg/dL (65-115); Osmolality Calculated 306 mOsm/kg (285-295); Potassium 4.4 mmol/L (3.5-5.1); Sodium 132 mmol/L (136-145)
[2021-01-11] MEDS: insulin glargine 100 units/1 mL 8 UNIT SUBCUT (21:49)
[2021-01-11] MEDS: cyclobenzaprine 10 mg Tablet PO (21:50)
[2021-01-11] MEDS: trazodone 50 mg Tablet 100 MG PO (21:50)
[2021-01-12] VITALS (28 sets, daily range): BP systolic 118–160; BP diastolic 67–93; PULSE 71–85; RESP 12–20; TEMP 36.7–36.8; O2SAT 91–95
[2021-01-12 05:01] LABS: Hematocrit 33.6 % (42.0-52.0); Hemoglobin 10.8 g/dL (11.7-16.6); Lymphocytes # 0.9 10^3/uL (0.8-4.8); Lymphocytes % 9.2 %; Mean Corpuscular HGB Conc 32.1 g/dL (30.0-36.0); Mean Corpuscular Hemoglobin 28.6 pg (28.0-34.0); Mean Corpuscular Volume 88.9 fl (80-94); Mean Platelet Volume 9.9 fL (7.4-10.4); Monocytes # 0.3 10^3/uL (0.2-0.9); Neutrophils # 8.44 10^3/uL (1.8-7.7); Nucleated Red Blood Cells % 0 %; Platelet Count 278 10^3/cmm (130-400); Red Blood Count 3.78 10^6/uL (4.1-5.3); Red Cell Distribution Width 14.5 % (12.1-15.1); White Blood Count 9.7 10^3/uL (4.0-10.0)
[2021-01-12 05:16] LABS: Alanine Aminotransferase 13 U/L (0-41); Albumin Level 3.6 g/dL (3.5-5.2); Alkaline Phosphatase 108 IU/L (40-130); Anion Gap 14.8 (5-19); Aspartate Amino Transferase 11 U/L (0-40); Blood Urea Nitrogen 55 mg/dL (6-20); Calcium 8.7 mg/dL (8.5-10.5); Carbon Dioxide 24 mmol/L (22-29); Chloride 102 mmol/L (98-107); Globulin 2.9 g/dL (1.3-4.6); Glucose 346 mg/dL (65-115); Magnesium 2.1 mg/dL (1.7-2.3); NT Pro B Type Natriuretic Pept 967 pg/mL (0-125); Osmolality Calculated 311 mOsm/kg (285-295); Phosphorus 3.4 mg/dL (2.5-4.5); Potassium 4.8 mmol/L (3.5-5.1); Sodium 136 mmol/L (136-145); Total Bilirubin 0.4 mg/dL (0.15-1.2); Total Protein 6.5 g/dL (6.6-8.7)
[2021-01-12] MEDS: levothyroxine 88 mcg Tablet PO (06:14)
[2021-01-12] MEDS: metoprolol tartrate 50 mg Tablet PO ×2 (06:14→18:12)
[2021-01-12] MEDS: amlodipine 10 mg Tablet PO (06:15)
[2021-01-12] MEDS: aspirin 81 mg EC Tablet PO (06:15)
[2021-01-12] MEDS: isosorbide mononitrate ER 30 mg Tablet PO ×2 (06:22→18:12)
[2021-01-12] MEDS: morphine 4 mg/mL SDV 1 mL 2 MG IVP ×2 (06:22→09:12)
[2021-01-12 06:28] LABS: Glucose Point of Care 385 mg/dL (70-110)
[2021-01-12 06:28] LABS: Glucose Point of Care 434 mg/dL (70-110)
[2021-01-12] MEDS: predniSONE 20 mg Tablet 40 MG PO (07:29)
[2021-01-12] MEDS: diphenhydrAMINE 50 mg Capsule PO (07:31)
[2021-01-12] MEDS: pantoprazole DR 40 mg Tablet PO (08:34)
[2021-01-12] MEDS: citalopram 20 mg Tablet 40 MG PO (08:34)
[2021-01-12] MEDS: atorvastatin 40 mg Tablet PO (08:34)
[2021-01-12] MEDS: ranolazine (12HR) 500 mg Tablet PO ×2 (08:34→20:19)
--- NOTE | 2021-01-12 10:18 | XACV_ITS ---
Exam Room: 107 Ht: 168 cm Wt: 105 kg BSA: 2.26 m2 Gender: Male : 1970 Any Known Allergies: Other Exam Priority: Routine Procedure(s): Procedure Description: Diagnostic procedure Diagnostic Cath Status: Elective Diagnostic Findings * No disease noted in the OM1, RCA, Left Anterior Descending, Right, or Circumflex coronary arteries. * Patent prior stents in LAD, OM1 and left circumflex arteries. * Minimal contrast used given patient's significant chronic kidney disease. * Coronary angiography shows right dominance. Conclusions 1. No disease noted in the OM1, RCA, Left Anterior Descending, Right, or Circumflex coronary arteries. 2. Patent prior stents. Recommendations * Aggressive risk factor control. * Follow kidney function post angiogram. IV fluids to continue for 12 hours. * Outpatient cardiology follow-up in 4 weeks. Diagnostic RX Recommendation: medical therapy and/or counseling Pressures Phase:Rest AO : 143 / 73 ( 102 ) @ 9:57:00 AM 117 / 80 ( 98 ) @ 9:58:00 AM 118 / 82 ( 100 ) @ 10:00:00 AM Clinical Evaluation EBL: 5mL-10mL Procedural Details Procedure Consent Obtained. Current Diagnosis : NSTEMI. Pre-Procedure Time Out. Identified patient by full name and date of as verbalized by the patient/guarantor. Does the consent match the physician's order: Yes. Accurate & Complete Informed Consent: Yes. Inpatient/Outpatient History & Physical on Chart: Yes. If H&P is completed, is and addenduem needed: No; If yes, is the addendum complete: N/A. Visualize and Verify Site with Patient/Guarantor: N/A. Relevant Radiology Images available: Yes. Pre-op teaching completed and patient verbalized understanding. The risks, benefits, and alternatives of sedation and/or procedure were discussed by physician. The patient agrees to continue. Procedure started. [facility] Clinical Fraility Score: 4: Vulnerable. Logistics Research Engineer Indications: ACS > 24 hours. Chest Pain Symptom Assessment: Typical Angina Symptoms. Correct patient, site and procedure confirmed by cath team. PERRLA. Strong, equal hand custom seamstress bilaterally. Lungs clear x 5 lobes. Current diagnosis: NSTEMI. IV Site on Arrival: 18 gauge in the left anticubital. IV Fluids: 0.9% NaCl at KVO. 0 mL infused prior to geoscience laboratory technician. Oxygen started at 2liters/min via nasal canula. bilateral groins was prepped with chloroprep then draped in the usual sterile fashion. Physician notified. Baseline sample Acquired. HR: 77 BPM. Physician arrived. Ivy Riggins textiles and clothing teacher and Jesus Pickard scrubbing. Physician scrubbed in. Immediate Pre-Procedure Time Out. Correct Patient: Yes; Correct Procedure: Yes; Correct Site: Yes; Correct Patient Position: Yes; Correct Supplies: Yes; Dried Flammable Prep: Yes; Blood Products Available: N/A;. Lidocaine 1% infiltrated to the left groin. Arterial access obtained with micropuncture set. 6Fr Dilator inserted OTW. A 5 swazi JL4 catheter in over wire. Multiple views taken of left coronary artery. Catheter removed over the standard wire. A 5 swazi JR4 catheter in over wire. Multiple views taken of right coronary artery. Catheter removed over the standard wire. Sheath(s) removed and manual pressure held until hemostasis was achieved. Sterile 4x4 and Op-site applied to the puncture site. No oozing or hematoma noted. Post sheath removal instructions were given and the patient verbalized understanding. A Manual Compression was unsuccessful obtaining hemostatsis at the Left Femoral artery insertion site. Post Procedure: Pulses reassessed and unchanged. No VTE prophylaxis required. Medication's Wasted: Lidocaine 1% = 9 mL. Medication's Wasted: Heparin = 1000 units. Total IV fluids: 44 mL. Contrast type used: Visipaque 320 mgI/mL, 500 mL bottle. Post-op diagnosis: Normal Coronaries. Complications: None. Estimated blood loss: 5mL-10mL. Procedure completed. Vital chart was stopped. Patient transferred by bed to 1st floor. Access Site Site: Left Femoral artery Sheath Size: 6 Fr Hemostasis Method: Manual Compression Hemostasis Success: Unsuccessful Procedure Medications Start: 10:36 AM Stop: 10:36 AM Medication: Solu-Medrol (methylprednisolone) Amount: 125 mg Route: I.V. Start: 10:36 AM Stop: 10:36 AM Medication: Versed Amount: 1 mg Route: I.V. Start: 10:36 AM Stop: 10:36 AM Medication: Fentanyl Amount: 50 mcg Route: I.V. Start: 10:39 AM Stop: 10:39 AM Medication: Benadryl Amount: 50 mg Route: I.V. Start: 10:45 AM Stop: 10:45 AM Medication: Versed Amount: 1 mg Route: I.V. Start: 10:49 AM Stop: 10:49 AM Medication: Fentanyl Amount: 50 mcg Route: I.V. I, the attending physician, have reviewed and verified all procedure medications. Yes, all medications given per verbal order History/Risk Factors Hypertension: Yes Dyslipidemia: Yes Peripheral Arterial Disease (PAD): No Myocardial Infarction (MD): No Obesity: No Renal Disease: No Tobacco Use: Never Prior Interventions PCI: Yes Valve Surgery: No Date of PCI: 07/27/2016 Report Signatures Finalized by Garrison Mckinney MD on 01/21/2021 05:36 PM
--- NOTE | 2021-01-12 11:33 | W.PM.OPSUD ---
Surgery/Procedure H&P Update DATE OF PROCEDURE: January 12, 2021 DATE H&P PERFORMED: 01/09/21 H&P UPDATE INFORMATION: I have reviewed H&P completed within last 30 days, I have examined patient prior to procedure and No changes to prior documentation PREOP DIAGNOSIS: Unstable angina PRIMARY INDICATION FOR PROCEDURE: Unstable angina PLANNED PROCEDURE: Left heart cath with possible percutaneous coronary intervention PATIENT REASSESSED PRIOR TO SEDATION, WITH NO CHANGE NOTED: Yes PHYSICAL EXAM: alert, oriented x 3, clear to auscultation bilaterally and regular rate & rhythm AIRWAY EVAL/ANESTHESIA PLAN: ASA III, Monitored Anesthesia, Local Anesthesia, Risks, benefits & alternatives of sedation and/or procedure discussed and Patient agrees to continue as planned
--- NOTE | 2021-01-12 11:34 | P.PN_ITS ---
Subjective Subjective: Interval history: Patient underwent coronary angiogram today which showed no obstructive coronary artery disease. Prior stents were patent. We used 35 cc of contrast for the procedure. Vitals/I&O/Wt Last Vital Signs Temp 98.3 F 01/12/21 04:00 Pulse 78 01/12/21 05:39 Resp 18 01/12/21 09:12 BP 147/67 01/12/21 04:00 Pulse Ox 93 01/12/21 09:12 01/11/21 01/12/21 01/12/21 22:59 06:59 14:59 Intake Total 980 / 1460 1086.667 / 2546.667 Output Total 700 / 700 1395 / 2095 Balance 280 / 760 -308.333 / 451.667 Weight last 48 hrs Weight 231 lb Weight 221 lb Physical Exam Narrative: EXAM NARRATIVE: GENERAL: Patient is alert, awake and oriented x3. [] NECK: No jugular vein distension. [] HEENT: No cyanosis. No icterus. No pallor. [] HEART: Regular S1 and S2. No murmur, rub or gallop. [] LUNGS: Clear to auscultate bilaterally. [] ABDOMEN: Soft, nontender and nondistended. Positive bowel sounds. No guarding, rebound or tenderness. [] CENTRAL NERVOUS SYSTEM: Grossly nonfocal. [] EXTREMITIES: Lower extremities with 1+ edema bilaterally. Pulses palpable in the lower extremities, both dorsalis pedis and posterior tibial. [] Data : 01/13/21 04:06 01/13/21 04:06 A&P Assessment and plan (1) Chest pain: Status: Acute (2) CHF exacerbation: Status: Acute Qualifiers: Heart failure type: systolic Qualified Code(s): I50.23 - Acute on chronic systolic (congestive) heart failure (3) Chronic kidney disease: Status: Chronic Qualifiers: Chronic kidney disease stage: stage 3 (moderate) Chronic kidney disease stage 3 subtype: stage 3b (GFR 30-44) Qualified Code(s): N18.32 - Chronic kidney disease, stage 3b (4) Obesity (BMI 30-39.9): Status: Acute (5) DVT (deep venous thrombosis): Status: Acute Qualifiers: DVT location: upper extremity Affected thrombotic vein of extremity: other upper extremity vein Chronicity: acute Laterality: left Qualified Code(s): I82.622 - Acute embolism and thrombosis of deep veins of left upper extremity (6) Diabetes: Status: Chronic Qualifiers: Diabetes mellitus type: type 2 Diabetes mellitus prison insulin use: with prison use Diabetes mellitus complication status: with kidney complications Diabetes mellitus complication detail: with chronic kidney disease Chronic kidney disease stage: stage 3 (moderate) Chronic kidney disease stage 3 subtype: stage 3b (GFR 30-44) Qualified Code(s): E11.22 - Type 2 diabetes mellitus with diabetic chronic kidney disease; N18.32 - Chronic kidney disease, stage 3b; Z79.4 - manager intermediate (current) use of insulin (7) Atherosclerotic heart disease of [place] coronary artery with other forms of angina pectoris: Status: Chronic Patient's chest pain symptoms are concerning for unstable angina. He underwent coronary angiogram today with minimal contrast used that showed no obstructive coronary artery disease and patent prior stents. Given his CKD, will need to monitor renal function closely. Continue IV hydration today. If creatinine and BUN are stable by tomorrow, can start gentle diuresis again. Continue aspirin and Ranexa. Echocardiogram ordered today to assess LV systolic function. Thank you for involving us with care of this patient. We will continue to follow. Please call with questions. Attestations Medical Necessity Statement*: Care expected to cross 2 midnights. Coding Level of Care Code Acute Button Inspector for Aaron Irene Diagnoses Chest pain R07.9 CHF exacerbation I50.23 Heart failure type: systolic Chronic kidney disease N18.32 Chronic kidney disease stage: stage 3 (moderate) Chronic kidney disease stage 3 subtype: stage 3b (GFR 30-44) Obesity (BMI 30-39.9) E66.9 DVT (deep venous thrombosis) I82.622 DVT location: upper extremity Affected thrombotic vein of extremity: other upper extremity vein Chronicity: acute Laterality: left Diabetes E11.22; N18.32; Z79.4 Diabetes mellitus type: type 2 Diabetes mellitus prison insulin use: with middle or intermediate school principal use Diabetes mellitus complication status: with kidney complications Diabetes mellitus complication detail: with chronic kidney disease Chronic kidney disease stage: stage 3 (moderate) Chronic kidney disease stage 3 subtype: stage 3b (GFR 30-44) Atherosclerotic heart disease of [place] coronary 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
--- NOTE | 2021-01-12 11:35 | P.PN_ITS ---
Subjective Subjective: Interval history: Patient was seen this morning, he is awaiting his cardiac catheterization procedure, he was received fluids overnight, his creatinine is improved to 2.3, had over 2 L urine output, had intermittent episodes of chest pain overnight, Vitals/I&O/Wt Last Vital Signs Temp 98.3 F 01/12/21 04:00 Pulse 78 01/12/21 05:39 Resp 18 01/12/21 09:12 BP 147/67 01/12/21 04:00 Pulse Ox 93 01/12/21 09:12 01/11/21 01/12/21 01/12/21 22:59 06:59 14:59 Intake Total 980 / 1460 1086.667 / 2546.667 Output Total 700 / 700 1395 / 2095 Balance 280 / 760 -308.333 / 451.667 Weight last 48 hrs Weight 104.78 kg Weight 100.244 kg Physical Exam Const: COMMON NORMALS: no acute distress and patient oriented x3 HENMT: COMMON NORMALS: normocephalic HEAD & SCALP: normocephalic Resp: COMMON NORMALS: normal respiratory effort, No retractions, No use of accessory muscles and clear to auscultation bilaterally AUSCULTATION: clear to auscultation bilaterally Cardio: COMMON NORMALS: regular rate, regular rhythm, S1 normal heart sound present and S2 normal heart sound present RATE: regular rate RHYTHM: regular rhythm HEART SOUNDS: S1 normal heart sound present and S2 normal heart sound present GI: COMMON NORMALS: Normal to inspection, nondistended, normoactive bowel sounds present, Soft to palpation and non-tender PALPATION: Yes Soft to palpation Extremity: COMMON NORMALS: no pedal edema Neuro: COMMON NORMALS: patient oriented x3 Psych: COMMON NORMALS: mental status grossly normal Data : 01/12/21 04:38 01/12/21 04:38 A&P Assessment and plan (1) CHF exacerbation: Status: Acute Qualifiers: Heart failure type: systolic Qualified Code(s): I50.23 - Acute on chronic systolic (congestive) heart failure (2) Right groin pain: Status: Acute (3) Atherosclerotic heart disease of [place] coronary artery with other forms of angina pectoris: Status: Chronic (4) Chronic systolic heart failure: Status: Chronic (5) Diabetes: Status: Chronic Qualifiers: Diabetes mellitus type: type 2 Diabetes mellitus terminal operations manager insulin use: with terminal operations manager use Diabetes mellitus complication status: with kidney complications Diabetes mellitus complication detail: with chronic kidney disease Chronic kidney disease stage: stage 3 (moderate) Chronic kidney disease stage 3 subtype: stage 3b (GFR 30-44) Qualified Code(s): E11.22 - Type 2 diabetes mellitus with diabetic chronic kidney disease; N18.32 - Chronic kidney disease, stage 3b; Z79.4 - intermediate project manager (current) use of insulin (6) Chronic kidney disease: Status: Chronic Qualifiers: Chronic kidney disease stage: stage 3 (moderate) Chronic kidney disease stage 3 subtype: stage 3b (GFR 30-44) Qualified Code(s): N18.32 - Chronic kidney disease, stage 3b (7) Chronic anticoagulation: Status: Chronic (8) Chest pain: Status: Acute Additional A&P Information Chest pain -Baseline troponin 25, 6-hour 24.55, delta -0.45 -EKG no acute ST-T wave changes -Angiogram November 2019 showed continue chest pain with multiple previous stent placement in all 3 vessels all of which are patent, no left ventriculogram done secondary to renal insufficiency -He is on aspirin, Eliquis, statin, Imdur, Ranexa Plan: -Continues to have episodes of chest pain - aspirin, statin, Imdur, Ranexa -On therapeutic Lovenox -Nitro as needed for chest pain -Consult cardiology, creatinine 2.3, will undergo cardiac catheterization today CHF exacerbation, diastolic - -4L - cr 2.3 -Lasix on hold -Fluid restrictions 1500 cc -Monitor ins and outs -Monitor creatinine, monitor urine output -Telemetry monitoring Insulin-dependent type 2 diabetes mellitus, continue sliding scale, glargine Hypothyroidism, continue levothyroxine Hypertension, continue beta-zaira GERD, continue Protonix Chronic pain, continue hydrocodone Anticipate discharge home Therapeutic Lovenox which will provide appropriate VTE prophylaxis Full code Plan for today continue IV fluids, monitor creatinine, await cardiac catheterization Attestations Medical Necessity Statement*: Patient requires hospitalization for chest pain, CHF exacerbation Coding Level of Care Code Acute Radio Communications Mechanician for Aaron Ierne Diagnoses CHF exacerbation I50.23 Heart failure type: systolic Right groin pain R10.31 Atherosclerotic heart disease of [place] coronary 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 Chronic systolic heart failure I50.22 Diabetes E11.22; N18.32; Z79.4 Diabetes mellitus type: type 2 Diabetes mellitus snf insulin use: with snf use Diabetes mellitus complication status: with kidney complications Diabetes mellitus complication detail: with chronic kidney disease Chronic kidney disease stage: stage 3 (moderate) Chronic kidney disease stage 3 subtype: stage 3b (GFR 30-44) Chronic kidney disease N18.32 Chronic kidney disease stage: stage 3 (moderate) Chronic kidney disease stage 3 subtype: stage 3b (GFR 30-44) Chronic anticoagulation Z79.01 Chest pain R07.9
--- NOTE | 2021-01-12 11:46 | USCV_ITS ---
Rei Queen Age: 50 Gender: M : 1970 Exam Date: 01/12/2021 15:21 Ordering Phys: Garrison Mckinney M.D ([email or web address]) Technologist: [place] [facility] [place]: BP: 147 / 84 HR: 72 Rhythm: Sinus Technical Quality: Adequate MEASUREMENTS (Male / Female) Normal Values 2D ECHO LV Diastolic Diameter PLAX 3.9 cm 4.2 - 5.9 / 3.9 - 5.3 cm LV Systolic Diameter PLAX 3.6 cm IVS Diastolic Thickness 1.1 cm 0.6 - 1.0 / 0.6 - 0.9 cm IVS Systolic Thickness 1.3 cm LVPW Diastolic Thickness 0.9 cm 0.6 - 1.0 / 0.6 - 0.9 cm LVPW Systolic Thickness 1.1 cm LVOT Diameter 2.1 cm LV Ejection Fraction 2D Teich 39.2 % LV Ejection Fraction MOD 2C 48.8 % LV Ejection Fraction 2C AL 49.8 % LA Diameter 3.5 cm LA Width 4.8 cm LA Height 7.2 cm RA Width 4.4 cm RA Height 7.0 cm Aorta at Sinotubular Diameter 2.9 cm DOPPLER AV Peak Velocity 144.0 cm/s LVOT Peak Velocity 80.0 cm/s AV Area Cont Eq vti 2.0 cm squared AV Area Cont Eq pk 1.9 cm squared MV Area PHT 5.0 cm squared Mitral E to A Ratio 1.1 MV E' Velocity 50.5 cm/s Mitral E to MV E' Ratio 9.2 Mitral E to LV E' Lateral Ratio 7.8 Mitral E to LV E' Septal Ratio 11.2 TR Peak Velocity 126.3 cm/s TR Peak Gradient 6.4 mmHg TV Peak E Velocity 68.0 cm/s Right Atrial Pressure 3.0 mmHg Pulmonary Artery Systolic Pressu 9.4 mmHg PV Peak Velocity 104.0 cm/s FINDINGS Left Ventricle Normal left ventricular size. LV systolic function is mildly reduced with EF of 40-45%. Mild global hypokinesis is noted. Normal diastolic filling pattern. Right Ventricle The right ventricle is normal in size and function. Right Atrium The right atrium is enlarged Left Atrium The left atrium is enlarged Mitral Valve Thickened mitral valve without significant stenosis or prolapse. There is trace mitral regurgitation. Aortic Valve Grossly normal without significant sclerosis or stenosis. There is no aortic regurgitation. Tricuspid Valve Not well visualized. No significant stenosis or regurgitation. Insufficient TR jet to calculate RVSP Pulmonic Valve Not well visualized. No significant stenosis. There is no pulmonic regurgitation. Pericardium Normal pericardium without effusion. Aorta Normal ascending aorta dimension. CONCLUSIONS Technically limited quality echocardiogram because of poor ultrasonic windows. LV systolic function is mildly reduced with EF of 40-45%. Mild global hypokinesis is noted Biatrial enlargement Trace mitral regurgitation Compared to prior echocardiogram from 09/2019, LV systolic function is slightly reduced Garrison Mckinney MD (Electronically Signed) Final Date: 13 January 2021 18:16 S
[2021-01-12 12:10] LABS: Glucose Point of Care 308 mg/dL (70-110)
[2021-01-12] MEDS: sucralfate 1 gm Tablet PO ×2 (12:19→21:46)
--- NOTE | 2021-01-12 14:35 | PC.NURSE ---
to cardiac equipment operator/laborer at 1020.return from cardiac equipment operator/laborer at 1135.report received.pt is drowsy but easily awakened.states still has chest pain rating 6/10.requested morphine..but had just received 100 mcg of fentanyl and 2 mg of versed in equipment operator/laborer...and was falling asleep btw requests.left femoral arterial sheath was pulled in the equipment operator/laborer.drsg is dry and intact and no hematoma noted.right leg is warm to touch and with brisk capillary refill.palpable left dp pulse noted.instructed pt and in activity restrictions s/p femoral artery procedure..and instructed to notify staff for any bleeding,numbness..or for any concerns at all.both verb understanding of instructions
[2021-01-12] MEDS: HYDROcodone-acetaminophen 5-325 mg Tablet 1 TAB PO (16:58)
[2021-01-12 17:09] LABS: Glucose Point of Care 261 mg/dL (70-110)
[2021-01-12] MEDS: multivitamin therapeutic Tablet 1 TAB PO (18:12)
[2021-01-12] MEDS: sodium chloride 0.9% 1,000 ML 50 ML IV (18:30)
--- NOTE | 2021-01-12 18:55 | PC.NURSE ---
Shift Note Frequent safety and comfort rounds continue. Orders and/or nursing care completed as indicated. Patient monitored for response to intervention and treatment(s). Education provided includes[post cath activity restrictions]. Patient and/or territory service representative [verb understanding].pt on bedrest x 6 hrs.no hematoma formation noted.vs remain stable.switched to hydrocodone from iv morphine for pain conctrol per dr leigh. Will continue to monitor.
[2021-01-12] MEDS: fentaNYL 50 mcg/mL INJ 2mL IVP (20:18)
[2021-01-12] MEDS: apixaban 5 mg Tablet 2.5 MG PO (20:20)
[2021-01-12 20:25] LABS: Glucose Point of Care 373 mg/dL (70-110)
[2021-01-12] MEDS: trazodone 50 mg Tablet 100 MG PO (21:45)
[2021-01-12] MEDS: insulin glargine 100 units/1 mL 8 UNIT SUBCUT (21:47)
[2021-01-13] VITALS (9 sets, daily range): BP systolic 151–165; BP diastolic 75–90; PULSE 65–86; RESP 15–22; TEMP 36.6–36.8; O2SAT 93–96
[2021-01-13] MEDS: HYDROcodone-acetaminophen 5-325 mg Tablet 1 TAB PO ×2 (03:16→17:44)
[2021-01-13 05:03] LABS: Basophils % 0.1 %; Hematocrit 32.8 % (42.0-52.0); Hemoglobin 10.9 g/dL (11.7-16.6); Lymphocytes # 0.9 10^3/uL (0.8-4.8); Mean Corpuscular HGB Conc 33.2 g/dL (30.0-36.0); Mean Corpuscular Hemoglobin 29.3 pg (28.0-34.0); Mean Corpuscular Volume 88.2 fl (80-94); Mean Platelet Volume 10.4 fL (7.4-10.4); Monocytes # 0.5 10^3/uL (0.2-0.9); Monocytes % 4.3 %; Neutrophils # 10.66 10^3/uL (1.8-7.7); Neutrophils % 87.6 %; Nucleated Red Blood Cells % 0 %; Platelet Count 283 10^3/cmm (130-400); Red Blood Count 3.72 10^6/uL (4.1-5.3); Red Cell Distribution Width 14.8 % (12.1-15.1); White Blood Count 12.2 10^3/uL (4.0-10.0)
[2021-01-13] MEDS: metoprolol tartrate 50 mg Tablet PO ×2 (05:11→17:44)
[2021-01-13] MEDS: levothyroxine 88 mcg Tablet PO (05:11)
[2021-01-13] MEDS: aspirin 81 mg EC Tablet PO (05:11)
[2021-01-13] MEDS: isosorbide mononitrate ER 30 mg Tablet PO ×2 (05:12→17:45)
[2021-01-13] MEDS: amlodipine 10 mg Tablet PO (05:12)
[2021-01-13] MEDS: morphine 4 mg/mL SDV 1 mL 2 MG IVP ×3 (05:12→19:01)
[2021-01-13 05:35] LABS: Alanine Aminotransferase 14 U/L (0-41); Albumin Level 3.6 g/dL (3.5-5.2); Alkaline Phosphatase 100 IU/L (40-130); Blood Urea Nitrogen 58 mg/dL (6-20); Calcium 8.3 mg/dL (8.5-10.5); Carbon Dioxide 21 mmol/L (22-29); Chloride 103 mmol/L (98-107); Globulin 2.1 g/dL (1.3-4.6); Glomerular Filtration Rate 31.6 mL/min (90-130); Glucose 274 mg/dL (65-115); Magnesium 2.1 mg/dL (1.7-2.3); NT Pro B Type Natriuretic Pept 2009 pg/mL (0-125); Osmolality Calculated 306 mOsm/kg (285-295); Phosphorus 2.8 mg/dL (2.5-4.5); Sodium 135 mmol/L (136-145); Total Bilirubin 0.4 mg/dL (0.15-1.2); Total Protein 5.7 g/dL (6.6-8.7)
[2021-01-13 05:47] LABS: Anion Gap 15.7 (5-19); Aspartate Amino Transferase 16 U/L (0-40); Potassium 4.7 mmol/L (3.5-5.1)
[2021-01-13 06:54] LABS: Glucose Point of Care 315 mg/dL (70-110)
--- NOTE | 2021-01-13 09:34 | PC.SOCIAL ---
Pg 2 IMM Explained to pt Pg 2 IMM. No questions voiced. Provided pt a copy. Initialed, dated, & timed a copy & placed in chart.
[2021-01-13] MEDS: pantoprazole DR 40 mg Tablet PO (11:04)
[2021-01-13] MEDS: atorvastatin 40 mg Tablet PO (11:04)
[2021-01-13] MEDS: apixaban 5 mg Tablet 2.5 MG PO ×2 (11:04→22:30)
[2021-01-13] MEDS: ranolazine (12HR) 500 mg Tablet PO ×2 (11:05→22:29)
[2021-01-13] MEDS: citalopram 20 mg Tablet 40 MG PO (11:05)
[2021-01-13] MEDS: cyclobenzaprine 10 mg Tablet PO (13:05)
[2021-01-13] MEDS: sucralfate 1 gm Tablet PO (13:05)
--- NOTE | 2021-01-13 13:51 | PC.CHAP ---
Pastoral Care Encounter/Spiritual Assessment Type of Contact [] Declined veneer drier tailer visit [] Patient/Family/Request visit [] Outpatient visit [] Follow-up visit [] Physician referral [] Code/Alert [xx] Routine visit [] Staff referral [] Actively dying [] Patient sleeping [] Family support [] [] Out of room [] Palliative care [] [] Receiving care in room [] Pre-surgical visit [] Trauma [] Long length of stay [] ICU visit [] Other: Relational/Emotional Strength [xx] Patient feels connected with others/family/visitors/staff [xx] Distress [] Loneliness/isolation [] Abandonment Spirituality of Patient xx] Person of Shannon [xx] Attends Moravian of their [place] [xx] Believes in Prayer [] Reads Bible or Holiness materials [] There are Spiritual issues to be addressed Worship Director Interventions [] Prayer [xx] Active listening [xx] Non-anxious presence [xx] Spiritual/emotional support [] Crisis/trauma care [] Spiritual counseling [] Bereavement support [] Provided bereavement packet [] Provided Bible/devotional materials [] Provided toy/stuffed animal, coloring book to patient or family member [] Provided Communion [] Anointing/[place] [] Salvation [xx] Completed spiritual assessment [] Other: Impact on Illness or Injury [] Angry [xx] Fearful [xx] Anxious [] Often cries [] Exhaustion [] Unable to work [] Unable to attend pentecostal [] Unable to walk/stand [] Unable to read [] Unable to drive [] Unable to eat/drink [] Unable to sleep [] Unable to be with family [] Patient intubated [] Other: Summary Patient is Protestant and wants only a trust accounts supervisor to pray for him. His foot, possibly leg, is scheduled to be amputated on Saturday and he is scared. He is not sure he can adjust mentally or physically to such a change. Time spent with patient 4 minutes
--- NOTE | 2021-01-13 13:58 | PC.CHAP ---
Pastoral Care Encounter/Spiritual Assessment Type of Contact [] Declined water systems designer visit [] Patient/Family/Request visit [] Outpatient visit [xx] Follow-up visit [] Physician referral [] Code/Alert [xx] Routine visit [] Staff referral [] Actively dying [] Patient sleeping [] Family support [] [] Out of room [] Palliative care [] [] Receiving care in room [] Pre-surgical visit [] Trauma [xx] Long length of stay [] ICU visit [] Other: Relational/Emotional Strength [xx] Patient feels connected with others/family/visitors/staff [] Distress [] Loneliness/isolation [] Abandonment Spirituality of Patient [xx] Person of [place] [xx] Attends Yarsanism of their [place] [xx] Believes in Prayer [xx] Reads Bible or Mosque materials [] There are Spiritual issues to be addressed Sliver Lapper Interventions [xx] Prayer [xx] Active listening [] Non-anxious presence [] Spiritual/emotional support [] Crisis/trauma care [] Spiritual counseling [] Bereavement support [] Provided bereavement packet [] Provided Bible/devotional materials [] Provided toy/stuffed animal, coloring book to patient or family member [] Provided Communion [] Anointing/[place] [] Salvation [xx] Completed spiritual assessment [] Other: Impact on Illness or Injury [] Angry [] Fearful [] Anxious [] Often cries [] Exhaustion [] Unable to work [] Unable to attend orthodox [] Unable to walk/stand [] Unable to read [] Unable to drive [] Unable to eat/drink [] Unable to sleep [] Unable to be with family [] Patient intubated [] Other: Summary Patient more concerned about and daughter than himself. Patient feels better physically. Time spent with patient 5 minutes
--- NOTE | 2021-01-13 16:20 | PM.PN ---
Subjective Subjective: Interval history: Patient is doing well. Denies any chest pain or shortness of breath. He underwent coronary angiogram yesterday that showed patent prior stents and no new stenosis. Vitals/I&O/Wt Last Vital Signs Temp 97.8 F 01/13/21 08:16 Pulse 77 01/13/21 08:16 Resp 18 01/13/21 13:05 BP 151/86 01/13/21 08:16 Pulse Ox 95 01/13/21 08:16 01/13/21 01/13/21 01/13/21 06:59 14:59 22:59 Output Total 600 / 2150 650 / 650 Balance -600 / -1329.167 -650 / -650 Weight last 48 hrs Weight 231 lb Physical Exam Narrative: EXAM NARRATIVE: GENERAL: Patient is alert, awake and oriented x3. [] NECK: No jugular vein distension. [] HEENT: No cyanosis. No icterus. No pallor. [] HEART: Regular S1 and S2. No murmur, rub or gallop. [] LUNGS: Clear to auscultate bilaterally. [] ABDOMEN: Soft, nontender and nondistended. Positive bowel sounds. No guarding, rebound or tenderness. [] CENTRAL NERVOUS SYSTEM: Grossly nonfocal. [] EXTREMITIES: Lower extremities with 1+ edema bilaterally. Pulses palpable in the lower extremities, both dorsalis pedis and posterior tibial. [] Data : 01/14/21 05:55 01/14/21 05:55 A&P Assessment and plan (1) Chest pain: Status: Acute (2) CHF exacerbation: Status: Acute Qualifiers: Heart failure type: systolic Qualified Code(s): I50.23 - Acute on chronic systolic (congestive) heart failure (3) Chronic kidney disease: Status: Chronic Qualifiers: Chronic kidney disease stage: stage 3 (moderate) Chronic kidney disease stage 3 subtype: stage 3b (GFR 30-44) Qualified Code(s): N18.32 - Chronic kidney disease, stage 3b (4) Obesity (BMI 30-39.9): Status: Acute (5) DVT (deep venous thrombosis): Status: Acute Qualifiers: DVT location: upper extremity Affected thrombotic vein of extremity: other upper extremity vein Chronicity: acute Laterality: left Qualified Code(s): I82.622 - Acute embolism and thrombosis of deep veins of left upper extremity (6) Diabetes: Status: Chronic Qualifiers: Diabetes mellitus type: type 2 Diabetes mellitus supervisor intermediates insulin use: with supervisor intermediates use Diabetes mellitus complication status: with kidney complications Diabetes mellitus complication detail: with chronic kidney disease Chronic kidney disease stage: stage 3 (moderate) Chronic kidney disease stage 3 subtype: stage 3b (GFR 30-44) Qualified Code(s): E11.22 - Type 2 diabetes mellitus with diabetic chronic kidney disease; N18.32 - Chronic kidney disease, stage 3b; Z79.4 - residential (current) use of insulin (7) Atherosclerotic heart disease of [place] coronary artery with other forms of angina pectoris: Status: Chronic Patient's chest pain symptoms were concerning for unstable angina. He underwent coronary angiogram yesterday with minimal contrast used that showed no obstructive coronary artery disease and patent prior stents. His creatinine has stayed stable. He received IV hydration. Can restart her diuresis. Continue aspirin and Ranexa. Mildly reduced LV systolic function with EF of 40 to 45%. Thank you for involving us with care of this patient. We will continue to follow. Please call with questions. Attestations Medical Necessity Statement*: Care expected to cross 2 midnights. Coding Level of Care Code Acute Intermission Coordinator for [facility] Fwd Diagnoses Chest pain R07.9 CHF exacerbation I50.23 Heart failure type: systolic Chronic kidney disease N18.32 Chronic kidney disease stage: stage 3 (moderate) Chronic kidney disease stage 3 subtype: stage 3b (GFR 30-44) Obesity (BMI 30-39.9) E66.9 DVT (deep venous thrombosis) I82.622 DVT location: upper extremity Affected thrombotic vein of extremity: other upper extremity vein Chronicity: acute Laterality: left Diabetes E11.22; N18.32; Z79.4 Diabetes mellitus type: type 2 Diabetes mellitus senior living insulin use: with senior living use Diabetes mellitus complication status: with kidney complications Diabetes mellitus complication detail: with chronic kidney disease Chronic kidney disease stage: stage 3 (moderate) Chronic kidney disease stage 3 subtype: stage 3b (GFR 30-44) Atherosclerotic heart disease of [place] coronary 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
--- NOTE | 2021-01-13 16:47 | PM.PN ---
Subjective Subjective: Interval history: Patient was seen this morning, he tells me that the chest pain is stopped, however his chronic right groin pain continues to bother him, he has a history of right inguinal hernia repair with mesh 20 years ago, with continued right groin pain, he seen Dr. Lopez, Dr. Lopez referred him to [facility], he tells me the pain is intermittent, and that the hydrocodone that he takes does not help Vitals/I&O/Wt Last Vital Signs Temp 97.8 F 01/13/21 08:16 Pulse 77 01/13/21 08:16 Resp 18 01/13/21 13:05 BP 151/86 01/13/21 08:16 Pulse Ox 95 01/13/21 08:16 01/13/21 01/13/21 01/13/21 06:59 14:59 22:59 Output Total 600 / 2150 650 / 650 600 / 1250 Balance -600 / -1329.167 -650 / -650 -600 / -1250 Weight last 48 hrs Weight 104.78 kg Physical Exam Const: COMMON NORMALS: no acute distress and patient oriented x3 Resp: COMMON NORMALS: normal respiratory effort, No retractions, No use of accessory muscles and clear to auscultation bilaterally AUSCULTATION: clear to auscultation bilaterally Cardio: COMMON NORMALS: regular rate, regular rhythm, S1 normal heart sound present and S2 normal heart sound present RATE: regular rate RHYTHM: regular rhythm HEART SOUNDS: S1 normal heart sound present and S2 normal heart sound present GI: COMMON NORMALS: Normal to inspection, nondistended, normoactive bowel sounds present, Soft to palpation and non-tender PALPATION: Yes Soft to palpation Extremity: COMMON NORMALS: no pedal edema Neuro: COMMON NORMALS: patient oriented x3 Psych: COMMON NORMALS: mental status grossly normal Data : 01/13/21 04:06 01/13/21 04:06 A&P Assessment and plan (1) CHF exacerbation: Status: Acute Qualifiers: Heart failure type: systolic Qualified Code(s): I50.23 - Acute on chronic systolic (congestive) heart failure (2) Right groin pain: ?Has a history of right inguinal hernia repair with mesh 20 years ago, chronic complaint of right groin pain, had a CT scan on 09/05/2020 that did not show any significant radiographic evidence of inguinal hernias, Dr. Lopez referred him to [facility] -Continue to conservatively manage, if it becomes more significant can consider CT scanning but nonetheless patient should follow with Dr. Lopez as outpatient as he says that he wants Dr. Lopez to operate on him he does not want to go to [facility] Status: Acute (3) Atherosclerotic heart disease of [place] coronary artery with other forms of angina pectoris: Status: Chronic (4) Chronic systolic heart failure: Status: Chronic (5) Diabetes: Status: Chronic Qualifiers: Diabetes mellitus type: type 2 Diabetes mellitus correction insulin use: with intermodal truck driver use Diabetes mellitus complication status: with kidney complications Diabetes mellitus complication detail: with chronic kidney disease Chronic kidney disease stage: stage 3 (moderate) Chronic kidney disease stage 3 subtype: stage 3b (GFR 30-44) Qualified Code(s): E11.22 - Type 2 diabetes mellitus with diabetic chronic kidney disease; N18.32 - Chronic kidney disease, stage 3b; Z79.4 - intermodal truck driver (current) use of insulin (6) Chronic kidney disease: Status: Chronic Qualifiers: Chronic kidney disease stage: stage 3 (moderate) Chronic kidney disease stage 3 subtype: stage 3b (GFR 30-44) Qualified Code(s): N18.32 - Chronic kidney disease, stage 3b (7) Chronic anticoagulation: Eliquis Status: Chronic (8) Chest pain: Status: Acute Additional A&P Information Chest pain -Baseline troponin 25, 6-hour 24.55, delta -0.45 -EKG no acute ST-T wave changes -Angiogram November 2019 showed continue chest pain with multiple previous stent placement in all 3 vessels all of which are patent, no left ventriculogram done secondary to renal insufficiency -He is on aspirin, Eliquis, statin, Imdur, Ranexa -Coronary angiogram within normal limits Plan: -Denies chest pain - aspirin, statin, Imdur, Ranexa -On Eliquis -Nitro as needed for chest pain -Consult cardiology, creatinine 2.3, monitoring creatinine, continue IV fluids, likely discharge the next 24 hours CHF exacerbation, diastolic - -6.7 L - cr 2.2 -Lasix on hold -Fluid restrictions 1500 cc -Monitor ins and outs -Monitor creatinine, monitor urine output -Telemetry monitoring Insulin-dependent type 2 diabetes mellitus, changed to high-dose sliding scale, glargine Hypothyroidism, continue levothyroxine Hypertension, continue beta-zaira GERD, continue Protonix Chronic pain, continue hydrocodone Anticipate discharge home Eliquis which will provide appropriate VTE prophylaxis Full code Plan for today monitor creatinine, increase to high-dose sliding scale, monitor groin pain, likely discharge tomorrow Attestations Medical Necessity Statement*: Patient requires hospitalization for chest pain requiring cardiac catheterization, monitoring creatinine after angiogram given CKD Coding Level of Care Code Acute Upsetter Helper for [facility] Fwd Diagnoses CHF exacerbation I50.23 Heart failure type: systolic Right groin pain R10.31 Atherosclerotic heart disease of [place] coronary 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 Chronic systolic heart failure I50.22 Diabetes E11.22; N18.32; Z79.4 Diabetes mellitus type: type 2 Diabetes mellitus intermodal truck driver insulin use: with correction use Diabetes mellitus complication status: with kidney complications Diabetes mellitus complication detail: with chronic kidney disease Chronic kidney disease stage: stage 3 (moderate) Chronic kidney disease stage 3 subtype: stage 3b (GFR 30-44) Chronic kidney disease N18.32 Chronic kidney disease stage: stage 3 (moderate) Chronic kidney disease stage 3 subtype: stage 3b (GFR 30-44) Chronic anticoagulation Z79.01 Chest pain R07.9
[2021-01-13 17:35] LABS: Glucose Point of Care 401 mg/dL (70-110)
[2021-01-13] MEDS: multivitamin therapeutic Tablet 1 TAB PO (17:44)
[2021-01-13 20:35] LABS: Glucose Point of Care 367 mg/dL (70-110)
[2021-01-13 21:17] LABS: Glucose Point of Care 344 mg/dL (70-110)
[2021-01-13] MEDS: insulin glargine 100 units/1 mL 8 UNIT SUBCUT (22:28)
[2021-01-14] VITALS (7 sets, daily range): BP systolic 138–150; BP diastolic 82–84; PULSE 62–69; RESP 18; TEMP 36.6–36.9; O2SAT 94–96
[2021-01-14] MEDS: morphine 4 mg/mL SDV 1 mL 2 MG IVP ×2 (00:21→08:51)
[2021-01-14] MEDS: sucralfate 1 gm Tablet PO (00:23)
[2021-01-14] MEDS: isosorbide mononitrate ER 30 mg Tablet PO (04:59)
[2021-01-14] MEDS: metoprolol tartrate 50 mg Tablet PO (04:59)
[2021-01-14] MEDS: aspirin 81 mg EC Tablet PO (04:59)
[2021-01-14] MEDS: HYDROcodone-acetaminophen 5-325 mg Tablet 1 TAB PO ×2 (04:59→11:56)
[2021-01-14] MEDS: amlodipine 10 mg Tablet PO (05:00)
[2021-01-14] MEDS: levothyroxine 88 mcg Tablet PO (05:00)
[2021-01-14] MEDS: cyclobenzaprine 10 mg Tablet PO (05:00)
[2021-01-14 06:23] LABS: Glucose Point of Care 189 mg/dL (70-110)
[2021-01-14 06:34] LABS: Basophils % 0.3 %; Eosinophils % 0.3 %; Hematocrit 31.5 % (42.0-52.0); Hemoglobin 10.1 g/dL (11.7-16.6); Lymphocytes % 20.4 %; Mean Corpuscular HGB Conc 32.1 g/dL (30.0-36.0); Mean Corpuscular Hemoglobin 28.9 pg (28.0-34.0); Mean Corpuscular Volume 90.3 fl (80-94); Mean Platelet Volume 9.9 fL (7.4-10.4); Monocytes # 0.8 10^3/uL (0.2-0.9); Monocytes % 8.6 %; Neutrophils # 6.84 10^3/uL (1.8-7.7); Neutrophils % 69.8 %; Nucleated Red Blood Cells % 0 %; Platelet Count 268 10^3/cmm (130-400); Red Blood Count 3.49 10^6/uL (4.1-5.3); White Blood Count 9.8 10^3/uL (4.0-10.0)
[2021-01-14 07:09] LABS: Alanine Aminotransferase 19 U/L (0-41); Albumin Level 3.2 g/dL (3.5-5.2); Alkaline Phosphatase 84 IU/L (40-130); Anion Gap 14.4 (5-19); Aspartate Amino Transferase 16 U/L (0-40); Blood Urea Nitrogen 50 mg/dL (6-20); Calcium 7.9 mg/dL (8.5-10.5); Carbon Dioxide 22 mmol/L (22-29); Chloride 107 mmol/L (98-107); Globulin 2.1 g/dL (1.3-4.6); Glomerular Filtration Rate 35.3 mL/min (90-130); Glucose 177 mg/dL (65-115); NT Pro B Type Natriuretic Pept 2715 pg/mL (0-125); Osmolality Calculated 306 mOsm/kg (285-295); Potassium 4.4 mmol/L (3.5-5.1); Sodium 139 mmol/L (136-145); Total Bilirubin 0.4 mg/dL (0.15-1.2); Total Protein 5.3 g/dL (6.6-8.7)
[2021-01-14] MEDS: ranolazine (12HR) 500 mg Tablet PO (08:54)
[2021-01-14] MEDS: atorvastatin 40 mg Tablet PO (08:54)
[2021-01-14] MEDS: apixaban 5 mg Tablet 2.5 MG PO (08:54)
[2021-01-14] MEDS: pantoprazole DR 40 mg Tablet PO (08:54)
[2021-01-14] MEDS: citalopram 20 mg Tablet 40 MG PO (08:55)
--- NOTE | 2021-01-14 09:31 | PM.PN ---
Subjective Subjective: Interval history: Patient is doing well. Has on and off atypical chest pain. It has improved since yesterday. Vitals/I&O/Wt Last Vital Signs Temp 98.4 F 01/14/21 08:00 Pulse 62 01/14/21 08:00 Resp 18 01/14/21 08:51 BP 150/82 01/14/21 08:00 Pulse Ox 94 01/14/21 08:00 01/13/21 01/14/21 01/14/21 22:59 06:59 14:59 Intake Total 240 / 240 240 / 240 Output Total 4450 / 5100 1000 / 6100 Balance -4450 / -5100 -760 / -5860 240 / 240 Weight last 48 hrs Weight 262 lb Weight 231 lb Physical Exam Narrative: EXAM NARRATIVE: GENERAL: Patient is alert, awake and oriented x3. [] NECK: No jugular vein distension. [] HEENT: No cyanosis. No icterus. No pallor. [] HEART: Regular S1 and S2. No murmur, rub or gallop. [] LUNGS: Clear to auscultate bilaterally. [] ABDOMEN: Soft, nontender and nondistended. Positive bowel sounds. No guarding, rebound or tenderness. [] CENTRAL NERVOUS SYSTEM: Grossly nonfocal. [] EXTREMITIES: Lower extremities with 1+ edema bilaterally. Pulses palpable in the lower extremities, both dorsalis pedis and posterior tibial. [] Data : 01/14/21 05:55 01/14/21 05:55 A&P Assessment and plan (1) Chest pain: Status: Acute (2) CHF exacerbation: Status: Acute Qualifiers: Heart failure type: systolic Qualified Code(s): I50.23 - Acute on chronic systolic (congestive) heart failure (3) Chronic kidney disease: Status: Chronic Qualifiers: Chronic kidney disease stage: stage 3 (moderate) Chronic kidney disease stage 3 subtype: stage 3b (GFR 30-44) Qualified Code(s): N18.32 - Chronic kidney disease, stage 3b (4) Obesity (BMI 30-39.9): Status: Acute (5) DVT (deep venous thrombosis): Status: Acute Qualifiers: DVT location: upper extremity Affected thrombotic vein of extremity: other upper extremity vein Chronicity: acute Laterality: left Qualified Code(s): I82.622 - Acute embolism and thrombosis of deep veins of left upper extremity (6) Diabetes: Status: Chronic Qualifiers: Diabetes mellitus type: type 2 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 insulin use: with ad terminal makeup operator use Diabetes mellitus complication status: with kidney complications Diabetes mellitus complication detail: with chronic kidney disease Chronic kidney disease stage: stage 3 (moderate) Chronic kidney disease stage 3 subtype: stage 3b (GFR 30-44) Qualified Code(s): E11.22 - Type 2 diabetes mellitus with diabetic chronic kidney disease; N18.32 - Chronic kidney disease, stage 3b; Z79.4 - medical terminologist (current) use of insulin (7) Atherosclerotic heart disease of [place] coronary artery with other forms of angina pectoris: Status: Chronic Patient's chest pain symptoms were concerning for unstable angina. He underwent coronary angiogram with minimal contrast used that showed no obstructive coronary artery disease and patent prior stents. His creatinine has improved. Restarted diuresis. Continue aspirin and Ranexa. Mildly reduced LV systolic function with EF of 40 to 45%. Thank you for involving us with care of this patient. Patient is ready to be discharged from cardiology standpoint. Please call with questions. Attestations Medical Necessity Statement*: Care expected to cross 2 midnights. Coding Level of Care Code Acute [employer] Solutions Consultant for [facility] Fwd Diagnoses Chest pain R07.9 CHF exacerbation I50.23 Heart failure type: systolic Chronic kidney disease N18.32 Chronic kidney disease stage: stage 3 (moderate) Chronic kidney disease stage 3 subtype: stage 3b (GFR 30-44) Obesity (BMI 30-39.9) E66.9 DVT (deep venous thrombosis) I82.622 DVT location: upper extremity Affected thrombotic vein of extremity: other upper extremity vein Chronicity: acute Laterality: left Diabetes E11.22; N18.32; Z79.4 Diabetes mellitus type: type 2 Diabetes mellitus [facility] insulin use: with ad terminal makeup operator use Diabetes mellitus complication status: with kidney complications Diabetes mellitus complication detail: with chronic kidney disease Chronic kidney disease stage: stage 3 (moderate) Chronic kidney disease stage 3 subtype: stage 3b (GFR 30-44) Atherosclerotic heart disease of [place] coronary 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
[2021-01-14 10:54] LABS: Glucose Point of Care 158 mg/dL (70-110)
--- NOTE | 2021-01-14 11:33 | PM.DCS ---
Discharge Providers Date of Admission: 01/08/21 19:40 Date of Discharge: January 14, 2021 Attending Provider at Admission: Carolina Durant MD Attending Provider at Discharge: Jaydon Juarez MD Primary Care Provider: Kp Montanez DO Diagnoses at Discharge Discharge Diagnosis (1) Chest pain: Status: Acute (2) CHF exacerbation: Status: Acute Qualifiers: Heart failure type: systolic Qualified Code(s): I50.23 - Acute on chronic systolic (congestive) heart failure (3) Chronic kidney disease: Status: Chronic Permanent problem details: -baseline Cr appears to be around 1.5 Qualifiers: Chronic kidney disease stage: stage 3 (moderate) Chronic kidney disease stage 3 subtype: stage 3b (GFR 30-44) Qualified Code(s): N18.32 - Chronic kidney disease, stage 3b (4) Obesity (BMI 30-39.9): Status: Acute (5) DVT (deep venous thrombosis): Status: Acute Permanent problem details: Proximal left subclavian, basilic and brachial veins, started eliquis this stay, felt present prior to admission Qualifiers: DVT location: upper extremity Affected thrombotic vein of extremity: other upper extremity vein Chronicity: acute Laterality: left Qualified Code(s): I82.622 - Acute embolism and thrombosis of deep veins of left upper extremity (6) Diabetes: Status: Chronic Permanent problem details: A1c-7.6 (08/2019) Qualifiers: Diabetes mellitus type: type 2 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 use Diabetes mellitus complication status: with kidney complications Diabetes mellitus complication detail: with chronic kidney disease Chronic kidney disease stage: stage 3 (moderate) Chronic kidney disease stage 3 subtype: stage 3b (GFR 30-44) Qualified Code(s): E11.22 - Type 2 diabetes mellitus with diabetic chronic kidney disease; N18.32 - Chronic kidney disease, stage 3b; 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 (7) Atherosclerotic heart disease of [place] coronary artery with other forms of angina pectoris: Status: Chronic Permanent problem details: hx of CAD with prior stenting of proximal LAD, LCx, RCA Reason for Visit Reason for Visit: sob, chest pain Hospital Course Hospital Course This is a 50-year-old male with a past medical history of CAD status post stenting x3, history of systolic CHF, insulin-dependent type 2 diabetes mellitus, GERD, CKD, who presents [facility] due to shortness of breath and chest pain For chest pain, patient was admitted, his 6-hour troponin was 24.55, EKG no acute ST-T wave changes, angiogram in November 2019 showed stents were patent, patient underwent a angiogram during this hospitalization, stents were found to be patent. His creatinine was monitored after the angiogram, creatinine on discharge was 2.0. Discharged on his home medications. With close follow-up with cardiology as outpatient Patient was also managed for a systolic and diastolic CHF exacerbation, -11 liters, discharged on his home Lasix 40 twice daily, with close follow-up with cardiology as outpatient. For his continued chest pain, I will have patient follow-up with gastroenterology as outpatient for consideration of esophageal manometry and EGD nonetheless have discharged on Protonix and Carafate. For his Right groin pain: ?Has a history of right inguinal hernia repair with mesh 20 years ago, chronic complaint of right groin pain, had a CT scan on 09/05/2020 that did not show any significant radiographic evidence of inguinal hernias, Dr. Lopez referred him to [facility] -Continue to conservatively manage, if it becomes more significant can consider CT scanning but nonetheless patient should follow with Dr. Lopez as outpatient as he says that he wants Dr. Lopez to operate on him he does not want to go to [facility] -We will have patient follow-up with Dr. Lopez as outpatient, -Gave patient a short supply of Ultram, for right groin pain, do not drive or operate heavy machinery or mix with hydrocodone -Patient was advised of the warning signs of incarcerated hernia, if so go to the emergency room as this is a surgical emergency Physical Exam Const: COMMON NORMALS: no acute distress and patient oriented x3 HENMT: COMMON NORMALS: normocephalic HEAD & SCALP: normocephalic Resp: COMMON NORMALS: normal respiratory effort, No retractions, No use of accessory muscles and clear to auscultation bilaterally AUSCULTATION: clear to auscultation bilaterally Cardio: COMMON NORMALS: regular rate, regular rhythm, S1 normal heart sound present and S2 normal heart sound present RATE: regular rate RHYTHM: regular rhythm HEART SOUNDS: S1 normal heart sound present and S2 normal heart sound present GI: COMMON NORMALS: Normal to inspection, nondistended, normoactive bowel sounds present, Soft to palpation, non-tender and no bruits PALPATION: Yes Soft to palpation Extremity: COMMON NORMALS: no pedal edema Neuro: COMMON NORMALS: patient oriented x3 Psych: COMMON NORMALS: mental status grossly normal Discharge Data Data Completed and Pending: Completed Studies During Hospitalization Category Date Time Status XR chest 1V chase ble [id number] Stat Exams 01/08/21 18:42 Completed CV. 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 Routin e Exams 01/12/21 10:18 Taken Complete Blood Co unt w/Auto AM LABS Lab 01/15/21 04:00 Ordered Comprehensive Met abolic Panel AM LA BS Lab 01/15/21 04:00 Ordered Magnesium AM LABS Lab 01/15/21 04:00 Ordered NT Pro B Type Cindy riuretic Pept QAM Lab 01/15/21 06:00 Ordered Phosphorus AM LAB S Lab 01/15/21 04:00 Ordered Labs from last 24 hours 01/14/21 01/14/21 01/14/21 10:42 06:20 05:55 WBC RBC Hgb Hct MCV MCH MCHC RDW Plt Count MPV Neut % (Auto) Lymph % (Auto) [place] % (Auto) Eos % (Auto) Baso % (Auto) Neut # (Auto) Lymph # (Auto) [place] # (Auto) Eos # (Auto) Baso # (Auto) Nucleated RBC % (a uto) Nucleated RBCs # Sodium 139 Potassium 4.4 Chloride 107 Carbon Dioxide 22 Anion Gap 14.4 BUN 50 H Creatinine 2.0 H GFR Calculation 35.3 L Glucose 177 H POC Glucose 158 H 189 H Calculated Osmolal ity 306 H Calcium 7.9 L Phosphorus 3.0 Magnesium 2.0 Total Bilirubin 0.4 AST 16 ALT 19 Alkaline Phosphata se 84 NT-Pro-B Natriuret Pep 2715 H Total Protein 5.3 L Albumin 3.2 L Globulin 2.1 01/14/21 01/13/21 01/13/21 05:55 21:03 20:07 WBC 9.8 RBC 3.49 L Hgb 10.1 L Hct 31.5 L MCV 90.3 MCH 28.9 MCHC 32.1 RDW 15.0 Plt Count 268 MPV 9.9 Neut % (Auto) 69.8 Lymph % (Auto) 20.4 [place] % (Auto) 8.6 Eos % (Auto) 0.3 Baso % (Auto) 0.3 Neut # (Auto) 6.84 Lymph # (Auto) 2.0 [place] # (Auto) 0.8 Eos # (Auto) 0.0 Baso # (Auto) 0.0 Nucleated RBC % (a uto) 0 Nucleated RBCs # 0.0 Sodium Potassium Chloride Carbon Dioxide Anion Gap BUN Creatinine GFR Calculation Glucose POC Glucose 344 H 367 H Calculated Osmolal ity Calcium Phosphorus Magnesium Total Bilirubin AST ALT Alkaline Phosphata se NT-Pro-B Natriuret Pep Total Protein Albumin Globulin 01/13/21 17:20 WBC RBC Hgb Hct MCV MCH MCHC RDW Plt Count MPV Neut % (Auto) Lymph % (Auto) [place] % (Auto) Eos % (Auto) Baso % (Auto) Neut # (Auto) Lymph # (Auto) [place] # (Auto) Eos # (Auto) Baso # (Auto) Nucleated RBC % (a uto) Nucleated RBCs # Sodium Potassium Chloride Carbon Dioxide Anion Gap BUN Creatinine GFR Calculation Glucose POC Glucose 401 H Calculated Osmolal ity Calcium Phosphorus Magnesium Total Bilirubin AST ALT Alkaline Phosphata se NT-Pro-B Natriuret Pep Total Protein Albumin Globulin Vitals: Last Vital Signs Temp 98.4 F 01/14/21 08:00 Pulse 62 01/14/21 08:00 Resp 18 01/14/21 08:51 BP 150/82 01/14/21 08:00 Pulse Ox 94 01/14/21 08:00 Discharge Plan Discharge Patient Disposition: Home Condition: Stable Prescriptions: New sucralfate 1 gram Tablet 1 g PO Q12H 30 Days Qty: 60 RF: 0 Ultram 50 mg tablet 50 mg PO DAILY PRN (Reason: pain) 5 Days Qty: 5 RF: 0 Continued (DME) diabetic shoes Qty: 1 RF: 0 multivitamin [Daily Multi-Vitamin] Tablet 1 tab PO QPM RF: 0 levothyroxine 88 mcg capsule 88 mcg PO DAILY@0600 RF: 0 metoprolol tartrate 50 mg tablet 50 mg PO BID@0600,1800 RF: 0 Trulicity 0.75 mg/0.5 mL pen injector 0.75 mg SUBCUT Q7D RF: 0 aspirin 81 mg tablet,delayed release (DR/EC) 81 mg PO DAILY@0600 RF: 0 (DME) Elizabeth See Rx Instructions .Route .MEDSUPPLY Qty: 1 RF: 0 Tresiba FlexTouch U-100 100 unit/mL (3 mL) insulin pen 15 unit SUBCUT .bedtime RF: 0 citalopram 40 mg tablet 40 mg PO DAILY Qty: 30 RF: 1 hydrocodone-acetaminophen 5-325 mg tablet 1 tab PO BID PRN (Reason: pain) 30 Days Qty: 60 RF: 0 nitroglycerin [Nitrostat] 0.4 mg tablet, sublingual 0.4 mg SUBLINGUAL Q5M PRN (Reason: Chest Pain) Qty: 25 RF: 2 apixaban 2.5 mg tablet 2.5 mg PO Q12H Qty: 60 RF: 6 insulin lispro [Humalog U-100 Insulin] 100 unit/mL solution See Rx Instructions .ROUTE .COMPLEX RF: 0 metformin 500 mg tablet extended release 24 hr 500 mg PO BID@06,18 RF: 0 acetaminophen [Tylenol Extra Strength] 500 mg Tablet 1,000 mg PO PRN RF: 0 promethazine 25 mg tablet 25 mg PO Q6H PRN (Reason: nausea and vomiting) RF: 0 cyclobenzaprine 10 mg tablet 10 mg PO TID PRN (Reason: MUSCLE SPASMS) RF: 0 amlodipine 10 mg tablet 10 mg PO DAILY@0600 RF: 0 isosorbide mononitrate 30 mg tablet extended release 24 hr 30 mg PO BID@0600,1800 RF: 0 furosemide 20 mg tablet 40 mg PO BID RF: 0 atorvastatin 40 mg tablet 40 mg PO DAILY RF: 0 trazodone 50 mg tablet 100 mg PO BEDTIME PRN (Reason: insomnia) RF: 0 ranolazine 500 mg tablet extended release 12 hr 500 mg PO BID RF: 0 Changed pantoprazole 40 mg tablet,delayed release (DR/EC) 40 mg PO BIDWMEAL Qty: 0 RF: 0 Discharge Orders: Discharge Order (Routine); Ordered 01/14/21 Ordered By: Jaydon Juarez Referrals: [facility] [Other] (Please contact this provider to assist with getting you set up with in home services. They will help coordinate the referral. Please ask for Holly Barrera.) Van Tadeo MD [Referring] - 1 month (Please call Saturday to schedule a follow up appointment. egd and esophageal manomaetry) Kp Montanez DO [Primary Care Provider] - (Please call Saturday to schedule a follow up appointment. ) Discharge Diet: Cardiac Discharge Activity: Resume usual activity Patient Instructions: Sucralfate (By mouth), Tramadol (By mouth), Heart Failure (GEN), Chest Pain (GEN), Left Heart Catheterization (DC), CHF Stoplight, Chest Pain Stoplight, Opioid Safety Activity Restrictions/Additional Instructions: -Please follow-up with gastroenterology in [place] -Please take Protonix and Carafate as prescribed -Please follow-up with primary care provider in 1 week, recheck kidney function -For right groin pain, please follow-up with Dr. Lopez, if pain becomes so severe, come back to the emergency room -Can use Ultram for breakthrough pain, please use very sparingly, do not drive or operate heavy machinery while taking tramadol, do not mix tramadol and hydrocodone Discharge Attestations Time Spent in Discharge Care*: less than 30 min Status at Discharge: Cognitive status at discharge: cognitively intact, Behavioral status at discharge: cooperative and independent in ADL's, Quality Metrics Clinical Quality Measures During this hospital stay, did patient experience: None Coding Level of Care Code Acute Chg FW DC note Diagnoses Chest pain R07.9 CHF exacerbation I50.23 Heart failure type: systolic Chronic kidney disease N18.32 Chronic kidney disease stage: stage 3 (moderate) Chronic kidney disease stage 3 subtype: stage 3b (GFR 30-44) Obesity (BMI 30-39.9) E66.9 DVT (deep venous thrombosis) I82.622 DVT location: upper extremity Affected thrombotic vein of extremity: other upper extremity vein Chronicity: acute Laterality: left Diabetes E11.22; N18.32; Z79.4 Diabetes mellitus type: type 2 Diabetes mellitus prison insulin use: with prison use Diabetes mellitus complication status: with kidney complications Diabetes mellitus complication detail: with chronic kidney disease Chronic kidney disease stage: stage 3 (moderate) Chronic kidney disease stage 3 subtype: stage 3b (GFR 30-44) Atherosclerotic heart disease of [place] coronary 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
--- NOTE | 2021-01-14 12:23 | PC.NURSE ---
Patient's IV removed at this time. Patient tolerated well. Reviewed discharge instructions with patient and his at this time. Patient and verbalized understanding of discharge instructions. Patient is A&Ox3. Respirations even and non-labored on room air. Patient wheel chaired to private car.
== END 2021-01-14 12:00 | disposition home or self-care (01) | DRG 286 ==
LOC: ER 20:05 → CSU 22:06 → MEDSURG 01-14 11:23
PROVIDERS: Internal Medicine; Admitting Provider Hospitalist; Emergency Provider Emergency Medicine; PCP Internal Medicine; Visit Provider Family Medicine
PROC: B211YZZ Fluoroscopy of Multiple Coronary Arteries using Other Contrast (ICD-10-PCS; principal; 2021-01-12 10:00)
DX: I13.0 Hypertensive heart and chronic kidney disease with heart failure and stage 1 through stage 4 chronic kidney disease, or unspecified chronic kidney disease (principal); I50.23 Acute on chronic systolic (congestive) heart failure; Z68.41 Body mass index [BMI] 40.0-44.9, adult; N18.32 Chronic kidney disease, stage 3b; E11.22 Type 2 diabetes mellitus with diabetic chronic kidney disease; Z95.1 Presence of aortocoronary bypass graft; D63.1 Anemia in chronic kidney disease; K40.90 Unilateral inguinal hernia, without obstruction or gangrene, not specified as recurrent; I25.110 Atherosclerotic heart disease of native coronary artery with unstable angina pectoris; F32.9 Major depressive disorder, single episode, unspecified; M21.372 Foot drop, left foot; K21.9 Gastro-esophageal reflux disease without esophagitis; I25.2 Old myocardial infarction; Z86.718 Personal history of other venous thrombosis and embolism; E78.5 Hyperlipidemia, unspecified; E03.9 Hypothyroidism, unspecified; I25.5 Ischemic cardiomyopathy; M47.9 Spondylosis, unspecified; E66.9 Obesity, unspecified; G89.29 Other chronic pain; Z79.891 Long term (current) use of opiate analgesic; Z79.82 Long term (current) use of aspirin; Z79.4 Long term (current) use of insulin
CPT/HCPCS: 36415; 36416; 51798; 71045; 76870; 80048; 80053; 82962; 83735; 83880; 84100; 84484; 85025; 93005; 93306; 93454; 96372; 96374; 99285; C1769; C1887; C1894; J1200; J1642; J1644; J1650; J1815 ×2; J1940; J2250; J2270; J2930; J3010; J7030; J7512; Q0163; Q0169; Q9967

== ENCOUNTER 2021-01-18 06:00 | Outpatient (RCR) | payer MEDICARE, MEDICAID, SELFPAY | END 2021-02-16 23:59 | disposition home or self-care (01) | LOC: SPT 06:00 | PROVIDERS: PCP Internal Medicine; Referring Provider Specialist; Visit Provider Specialist | DX: M53.3 Sacrococcygeal disorders, not elsewhere classified (principal) | CPT/HCPCS: 97110 ==

== ENCOUNTER → 2021-01-20 11:00 | Outpatient (BNVA) | payer MEDICARE, MEDICAID, SELFPAY | PROVIDERS: PCP Internal Medicine; Visit Provider Anesthesiology Pain Medicine | DX: G89.29 Other chronic pain (principal); R10.31 Right lower quadrant pain; M51.9 Unspecified thoracic, thoracolumbar and lumbosacral intervertebral disc disorder; M53.3 Sacrococcygeal disorders, not elsewhere classified; M16.0 Bilateral primary osteoarthritis of hip; S79.919A Unspecified injury of unspecified hip, initial encounter; X58.XXXA Exposure to other specified factors, initial encounter; Z79.891 Long term (current) use of opiate analgesic | CPT/HCPCS: 99214 ==

== ENCOUNTER → 2021-01-30 07:01 | Day surgery (SDC) | payer MEDICARE, MEDICAID, SELFPAY ==
[2021-01-30 08:24] LABS: Creatinine Urine, Random 78 mg/dL (39-259)
[2021-01-30 08:34] LABS: Albumin Level 3.4 g/dL (3.5-5.2); Anion Gap 14.3 (5-19); Blood Urea Nitrogen 35 mg/dL (6-20); Calcium 7.6 mg/dL (8.5-10.5); Carbon Dioxide 26 mmol/L (22-29); Chloride 102 mmol/L (98-107); Glomerular Filtration Rate 27.3 mL/min (90-130); Glucose 245 mg/dL (65-115); Phosphorus 3.5 mg/dL (2.5-4.5); Potassium 4.3 mmol/L (3.5-5.1); Sodium 138 mmol/L (136-145)
[2021-01-30 08:37] LABS: Microalbum Creatinine Ratio Ur 897 mg/dL (0-20); Microalbumin Random Urine 70 ug/dL (0-20)
[2021-01-30 08:41] VITALS: BP 144/74; PULSE 78; RESP 18; TEMP 36.8; O2SAT 96
[2021-01-30 09:30] LABS: Calcium 7.4 mg/dL (8.5-10.5)
[2021-01-30 10:00] LABS: Parathyroid Hormone 122.9 pg/mL (15-65)
== END ==
PROVIDERS: Internal Medicine Nephrology; PCP Internal Medicine; Visit Provider Internal Medicine
DX: N18.4 Chronic kidney disease, stage 4 (severe) (principal); F33.2 Major depressive disorder, recurrent severe without psychotic features; F10.21 Alcohol dependence, in remission
CPT/HCPCS: 36591; 80069; 82044; 82310; 83970; 96523; 99214

== ENCOUNTER 2021-02-09 16:06 | Emergency (ER) | payer MEDICARE, MEDICAID, SELFPAY ==
[2021-02-09 16:19] VITALS: BP 153/79; PULSE 78; RESP 16; TEMP 36.8; O2SAT 96; BMI 40.3
--- NOTE | 2021-02-09 16:28 | CTR_ITS ---
PROCEDURE INFORMATION: Exam: CT Head Without Contrast Exam date and time: 02/09/2021 4:28 PM Age: 50 years old Clinical indication: Injury or trauma; Fall; Blunt trauma (contusions or hematomas); Consciousness not specified; Additional info: Fall, trauma, on eliquis TECHNIQUE: Imaging protocol: Computed tomography of the head without contrast. Radiation optimization: All CT scans at this facility use at least one of these dose optimization techniques: automated exposure control; mA and/or kV adjustment per patient size (includes targeted exams where dose is matched to clinical indication); or iterative reconstruction. COMPARISON: CT head wo con* [id number] 12/01/2019 7:05 PM RADIATION DOSE METRICS: Total DLP (mGy-cm): 1071.23 FINDINGS: Brain: The brain is unremarkable. There is no mass effect or significant white matter disease. There is no acute intracranial hemorrhage. Cerebral ventricles: There is no significant ventricular dilation. The basal cisterns are unremarkable. Paranasal sinuses: The paranasal sinuses are clear. Mastoid air cells: The mastoid air cells are clear. Bones/joints: The calvarium is intact. Soft tissues: The visible extracranial soft tissues are unremarkable. CT/CT head wo con* [id number] IMPRESSION: No acute intracranial abnormality. Radiation Dose CTDIVOL = (mGy): DLP = 1071.23 (mGy-cm)
--- NOTE | 2021-02-09 16:28 | XRR_ITS ---
PROCEDURE INFORMATION: Exam: XR Chest Exam date and time: 02/09/2021 4:28 PM Age: 50 years old Clinical indication: Injury or trauma; Fall; Blunt trauma (contusions or hematomas); Injury date: 02/09/2021 TECHNIQUE: Imaging protocol: XR of the chest. Views: 2 views. COMPARISON: CR (CHEST, ) 01/08/2021 6:48 PM FINDINGS: Tubes, catheters and devices: There is a left chest port with the line tip appropriately positioned in the lower SVC near the cavoatrial junction. Lungs: Lungs are clear. Pleural spaces: There is no pleural effusion or pneumothorax. Heart/Mediastinum: There is mild cardiac enlargement. Bones/joints: Sternal wires are present. There is no displacement to suggest sternal dehiscence. XR/XR chest 2V* [id number] IMPRESSION: No acute findings.
--- NOTE | 2021-02-09 16:28 | XRR_ITS ---
PROCEDURE INFORMATION: Exam: XR Bilateral Hips Exam date and time: 02/09/2021 4:28 PM Age: 50 years old Clinical indication: Pain and injury or trauma; Fall; Blunt trauma (contusions or hematomas); Bilateral; Hip pain TECHNIQUE: Imaging protocol: XR bilateral hips. Views: 2 views of hips with pelvis when performed. COMPARISON: CR XR hip RT 2-3V wo/w pel* [id number] 12/01/2020 9:23 AM FINDINGS: Bones/joints: The sacrum and SI joints are unremarkable. The pelvis and proximal femora are intact. Soft tissues: Unremarkable. Vasculature: There is extensive vascular calcification in the pelvis. XR/XR hip BI m 5V wo/w pel* [id number] IMPRESSION: No acute fracture.
--- NOTE | 2021-02-09 16:28 | XRR_ITS ---
PROCEDURE INFORMATION: Exam: XR Lumbosacral Spine Exam date and time: 02/09/2021 4:28 PM Age: 50 years old Clinical indication: Low back pain; Additional info: Lumbosacral 2 view TECHNIQUE: Imaging protocol: XR of the lumbosacral spine. Views: 2 or 3 views. COMPARISON: CR XR hip RT 2-3V wo/w pel* [id number] 12/01/2020 9:23 AM FINDINGS: Bones/joints: Spinal alignment is normal. Vertebral body height is maintained. No acute fracture. There is mild multilevel facet spondylosis. The visible portion of the pelvis and sacrum is intact. Soft tissues: Unremarkable. Vasculature: Moderate aortic atherosclerotic disease. XR/XR lumbar spine 2-3V* [id number] IMPRESSION: No acute findings.
--- NOTE | 2021-02-09 16:30 | XRR_ITS ---
PROCEDURE INFORMATION: Exam: XR Left Tibia and Fibula Exam date and time: 02/09/2021 4:30 PM Age: 50 years old Clinical indication: Pain; Lower leg; Left; Additional info: Rule out FX TECHNIQUE: Imaging protocol: XR Left tibia and fibula. Views: 2 views. COMPARISON: CR XR foot LT min 3V* [id number] 01/28/2020 2:01 PM FINDINGS: Bones/joints: Normal. Soft tissues: Normal. XR/XR tibia fibula LT 2V [id number] IMPRESSION: No acute findings.
--- NOTE | 2021-02-09 16:30 | XRR_ITS ---
PROCEDURE INFORMATION: Exam: XR Right Knee Exam date and time: 02/09/2021 4:30 PM Age: 50 years old Clinical indication: Injury or trauma; Fall; Blunt trauma; Knee; Right; Additional info: Rule out FX TECHNIQUE: Imaging protocol: XR Right knee. Views: 3 views. COMPARISON: CR Foot 3 views, RIGHT* [id number] 08/04/2017 6:02 PM FINDINGS: Bones/joints: Alignment is normal. No acute fracture. There is no joint effusion. Soft tissues: Normal. XR/XR knee RT 3V* [id number] IMPRESSION: No acute findings.
--- NOTE | 2021-02-09 16:32 | W.ED.GENADLT ---
HPI - General Adult General: Chief complaint: Fall Stated complaint: FALL, TRIPPED, PELVIC, NECK,BACK HIP PAIN Time Seen by Provider: 02/09/21 16:14 History of Present Illness: HPI narrative: 50-year-old male with a history of VTE is on Eliquis, diabetes, hypertension who presents the emergency room after a mechanical fall. Patient says that he slipped and fell onto his butt and then hit his head. Since then, he has been unable to get up. Patient called EMS. EMS applied a pelvic binder prior to transport, patient arrived with complaints of right knee pain, left tib-fib pain, lower back pain, right-sided chest pain, and headache. Patient denies any LOC, associated chest pain, shortness breath, light-headedness, or palpitation prior to the episodes of fall. Patient denies any source of bleeding. On arrival, patient is hemodynamically stable, AAOx3, no other focal complaints at this time. Onset: 2 hrs ago Duration:2 hrs Location:home Severity:moderate Review of Systems Narrative: Constitutional: No fever, no chills. HEENT: No vision changes CV: No chest pain, no palpitations PULM: no cough, no dyspnea. +R side chest pain GI: No abdominal pain, no N/V/D. : No dysuria, +b/l hip pain MSKEL: +R knee pain, +L leg pain SKIN: No new rashes, no lesions. NEURO: No headache, no focal weakness. +diffuse headache HEME: No visible bruises PSYCH: Normal mood BACK: +lower back pain PFS ED PFSH: Medical History (Updated 02/09/21 @ 18:54 by Jose Macias MD) Anemia Atherosclerotic heart disease of [place] coronary artery with other forms of angina pectoris hx of CAD with prior stenting of proximal LAD, LCx, RCA Chronic kidney disease -baseline Cr appears to be around 1.5 Chronic systolic heart failure EF=47%, diffuse LV hypokinesis, mildly increased LA size Depression Diabetes A1c-7.6 (08/2019) Foot drop, left GERD (gastroesophageal reflux disease) H/O acute myocardial infarction H/O deep venous thrombosis developed compartment syndrome Hyperlipidemia Hypertension Hypothyroidism Ischemic cardiomyopathy Osteoarthritis of spine Psychiatric care Surgical History H/O colonoscopy (11/14/20) 08/2015 H/O esophagogastroduodenoscopy (11/14/20) 08/2015 H/O removal of testicle left H/O skin graft H/O vasectomy History of appendectomy 1995 History of coronary artery stent placement 5x History of excision of mass 06/08/2019: Subcutaneous mass on back History of inguinal hernia repair, bilateral 1999 History of removal of Port-a-Cath Hx of cholecystectomy Port-A-Cath in place Family History Grandfather Cancer skin cancer Parkinson disease Brother Hypertension Father Heart disease Mother Hypertension Stroke Aneurysm Grandmother Aneurysm Other Crohn disease Denies family history of Anesthesia complication Bleeding disorder Social History Second hand smoke exposure: No Alcohol intake: former Former alcohol use details: Only holidays Lives independently: Yes Household members: significant other Marital status: Single Current occupational status: disabled History of recent travel: No Physical Exam Narrative: EXAM NARRATIVE: Head: Atraumatic Eyes: PERRL, conjunctiva without injection ENT: Mucous membrane moist NECK: Supple, ROM intact LUNGS: LCTAB, no crackles/rhonchi CV: RRR ABDOMEN: Soft, nontender in all quadrants EXTREMITY: Normal ROM SKIN: No rash or erythema NEURO: Awake and alert, no focal motor deficits PSYCH: Normal mood and affect Course Vital Signs: Vital signs: Vital Signs Temperature 98.3 F 02/09/21 16:19 Pulse Rate 74 02/09/21 19:23 Respiratory Rate 18 02/09/21 19:23 Blood Pressure 127/70 02/09/21 19:23 Pulse Oximetry 97 02/09/21 19:23 MDM - General Adult MDM Narrative: Medical decision making narrative: 50-year-old male on AC presented to the emergency room after an episode of mechanical fall with complaints of multiple areas of pain. Hemodynamically stable, with tenderness palpation in the right knee, left tib-fib, left lumbar sacral midline area, R chest, and bilateral hip. Workup: XR imaging and CT brain Imaging studies negative for any acute brain bleed or acute trauma or fractures. Patient reports pain improved with Tylenol, Flexeril, and lidocaine patch. Patient has been able to ambulate without any difficulty. I have given patient strict return precaution for any worsening pain, focal weakness, saddle's symptoms, bowel or bladder problem, or any new or concerning issues. Rx: Norflex, Tylenol, menthol, Tylenol as needed pain Disposition: Discharge. Patient counseled regarding diagnostic impression, treatment plan. Patient given ED strict return precautions to return for continuation, worsening, or development of new symptoms. Instructed to f/u w/ PCP regarding symptoms today. Patient verbalized understanding. Imaging Data^: Other Imaging: Radiologist's impression: [address] [place], [place] [address]SDmj ReportSigned Patient: Rei Queen IIUnit #: [id number]: [id number]#:[id number]/Sex: 50 MADM Date: 02/09/21Loc: [facility]Bed:Attending Dr: Ordering Provider/Ordering MD: Jose Macias MD Date of Service: 02/09/21 Procedure(s): XR knee RT 3V* [id number] Accession Number(s): [id number] Report Number: [id number] PROCEDURE INFORMATION: Exam: XR Right Knee Exam date and time: 02/09/2021 4:30 PM Age: 50 years old Clinical indication: Injury or trauma; Fall; Blunt trauma; Knee; Right; Additional info: Rule out FX TECHNIQUE: Imaging protocol: XR Right knee. Views: 3 views. COMPARISON: CR Foot 3 views, RIGHT* [id number] 08/04/2017 6:02 PM FINDINGS: Bones/joints: Alignment is normal. No acute fracture. There is no joint effusion. Soft tissues: Normal. XR/XR knee RT 3V* [id number] IMPRESSION: No acute findings. Dictated By:Jeremías Neumann MDSigned By:Jeremías Neumann MDSigned Date/Time:02/09/211725DD/ 172 [address] [place], [place] [address]NOji ReportSigned Patient: Rei Queen IIUnit #: [id number]: [id number]#:[id number]/Sex: 50 / MADM Date: 02/09/21Loc: ERRoom/Bed:Attending Dr: Ordering Provider/Ordering MD: Jose Macias MD Date of Service: 02/09/21 Procedure(s): XR hip BI m 5V wo/w pel* [id number] Accession Number(s): [id number] Report Number: [id number] PROCEDURE INFORMATION: Exam: XR Bilateral Hips Exam date and time: 02/09/2021 4:28 PM Age: 50 years old Clinical indication: Pain and injury or trauma; Fall; Blunt trauma (contusions or hematomas); Bilateral; Hip pain TECHNIQUE: Imaging protocol: XR bilateral hips. Views: 2 views of hips with pelvis when performed. COMPARISON: CR XR hip RT 2-3V wo/w pel* [id number] 12/01/2020 9:23 AM FINDINGS: Bones/joints: The sacrum and SI joints are unremarkable. The pelvis and proximal femora are intact. Soft tissues: Unremarkable. Vasculature: There is extensive vascular calcification in the pelvis. XR/XR hip BI m 5V wo/w pel* [id number] IMPRESSION: No acute fracture. Dictated By:Jeremías Neumann MDSigned By:Jeremías Neumann MDSigned Date/Time:02/09/21 1724DD/ [address] [address]EA Scan ReportSigned Patient: Rei Queen IIUnit #: [id number]: [id number]#:[id number]/Sex: 50 / MADM Date: 02/09/21Loc: ERRoom/Bed:Attending Dr: Ordering Provider/Ordering MD: Jose Macias MD Date of Service: 02/09/21 Procedure(s): CT head wo con* [id number] Accession Number(s): [id number] Report Number: [id number] PROCEDURE INFORMATION: Exam: CT Head Without Contrast Exam date and time: 02/09/2021 4:28 PM Age: 50 years old Clinical indication: Injury or trauma; Fall; Blunt trauma (contusions or hematomas); Consciousness not specified; Additional info: Fall, trauma, on eliquis TECHNIQUE: Imaging protocol: Computed tomography of the head without contrast. Radiation optimization: All CT scans at this facility use at least one of these dose optimization techniques: automated exposure control; mA and/or kV adjustment per patient size (includes targeted exams where dose is matched to clinical indication); or iterative reconstruction. COMPARISON: CT head wo con* [id number] 12/01/2019 7:05 PM RADIATION DOSE METRICS: Total DLP (mGy-cm): 1071.23 FINDINGS: Brain: The brain is unremarkable. There is no mass effect or significant white matter disease. There is no acute intracranial hemorrhage. Cerebral ventricles: There is no significant ventricular dilation. The basal cisterns are unremarkable. Paranasal sinuses: The paranasal sinuses are clear. Mastoid air cells: The mastoid air cells are clear. Bones/joints: The calvarium is intact. Soft tissues: The visible extracranial soft tissues are unremarkable. CT/CT head wo con* [id number] IMPRESSION: No acute intracranial abnormality. Radiation Dose CTDIVOL = (mGy): DLP = 1071.23 (mGy-cm) Dictated By:Jeremías Neumann MDSigned By:Jeremías Neumannigned Date/Time:02/09/21 1721DD/ 172 Discharge Plan Discharge Patient Disposition: Home Clinical Impression: Fall Condition: Stable Prescriptions: New lidocaine 5 % adhesive patch,medicated 1 patch topical DAILY PRN (Reason: pain) 10 Days Qty: 10 RF: 0 orphenadrine citrate 100 mg tablet extended release 100 mg PO BID PRN (Reason: pain) 10 Days Qty: 20 RF: 0 acetaminophen 500 mg tablet 500 mg PO TID PRN (Reason: pain) 10 Days Qty: 30 RF: 0 prednisone 50 mg tablet 50 mg PO DAILY PRN (Reason: pain) 3 Days RF: 0 Biofreeze (menthol) 4 % gel 1 applic topical DAILY PRN (Reason: pain) 10 Days Qty: 89 RF: 0 No Action (DME) diabetic shoes Qty: 1 RF: 0 multivitamin [Daily Multi-Vitamin] Tablet 1 tab PO QPM RF: 0 metoprolol tartrate 50 mg tablet 50 mg PO BID@0600,1800 RF: 0 Trulicity 0.75 mg/0.5 mL pen injector 0.75 mg SUBCUT Q7D RF: 0 aspirin 81 mg tablet,delayed release (DR/EC) 81 mg PO DAILY@0600 RF: 0 (DME) Ottobrandi See Rx Instructions .Route .MEDSUPPLY Qty: 1 RF: 0 nitroglycerin [Nitrostat] 0.4 mg tablet, sublingual 0.4 mg SUBLINGUAL Q5M PRN (Reason: Chest Pain) Qty: 25 RF: 2 apixaban 2.5 mg tablet 2.5 mg PO Q12H Qty: 60 RF: 6 metolazone 5 mg tablet 5 mg PO .QOD Qty: 30 RF: 6 insulin lispro [Humalog U-100 Insulin] 100 unit/mL solution See Rx Instructions .ROUTE .COMPLEX RF: 0 metformin 500 mg tablet extended release 24 hr 500 mg PO BID@18 RF: 0 acetaminophen [Tylenol Extra Strength] 500 mg Tablet 1,000 mg PO Q4H PRN (Reason: Pain) RF: 0 promethazine 25 mg tablet 25 mg PO Q6H PRN (Reason: nausea and vomiting) RF: 0 cyclobenzaprine 10 mg tablet 10 mg PO TID PRN (Reason: MUSCLE SPASMS) RF: 0 isosorbide mononitrate 30 mg tablet extended release 24 hr 30 mg PO BID@0600,1800 RF: 0 atorvastatin 40 mg tablet 40 mg PO QAM RF: 0 ranolazine 500 mg tablet extended release 12 hr 500 mg PO BID RF: 0 levothyroxine 88 mcg tablet 88 mcg PO QAM RF: 0 torsemide 100 mg tablet 100 mg PO QAM RF: 0 gabapentin 300 mg Capsule 300 mg PO TID RF: 0 Tresiba FlexTouch U-200 200 unit/mL (3 mL) insulin pen 22 unit SUBCUT BEDTIME RF: 0 furosemide 40 mg tablet 80 mg PO BID RF: 0 citalopram 40 mg tablet 40 mg PO QAM RF: 0 hydrocodone-acetaminophen 5-325 mg tablet 2 tab PO BEDTIME PRN (Reason: pain) RF: 0 Klor-Con M20 20 mEq tablet,ER particles/crystals 20 meq PO QAM RF: 0 trazodone 100 mg tablet 300 mg PO BEDTIME PRN (Reason: insomnia) RF: 0 amlodipine 5 mg Tablet 5 mg PO BID RF: 0 Discharge Orders: Discharge ED (Routine); Ordered 02/09/21 Ordered By: Jose Macias Referrals: Kp Montanez DO [Primary Care Provider] - Discharge Diet: Advance as tolerated Discharge Activity: Resume usual activity Patient Instructions: Concussion (ED), Back Pain (ED), Fall Prevention (ED) Activity Restrictions/Additional Instructions: Please come back to the emergency room if you have any worsening pain, headache, difficulty moving arms or legs, or any new or concerning complaints. Coding Level of Care Code ED [employer] Consultant for Aaron Irene
[2021-02-09 17:32] VITALS: BP 153/79; PULSE 80; O2SAT 97
[2021-02-09] MEDS: lidocaine 5% Patch 1 PATCH TOPICAL (17:33)
[2021-02-09] MEDS: predniSONE 20 mg Tablet 40 MG PO (17:33)
[2021-02-09] MEDS: cyclobenzaprine 10 mg Tablet 5 MG PO (17:34)
[2021-02-09] MEDS: acetaminophen 500 mg Tablet PO (17:35)
--- NOTE | 2021-02-09 17:44 | PC.PHAR ---
pt and pts verified medications-pt states he takes amlodipine 5mg bid-rx written in 02/03/21 5mg po daily-ext med history shows lasix last filled on 02/03/21 90d/s for 40mg bid pts states the pt takes 80mg bid-pts states the pt normally takes norco 5/325mg 2 tabs hs prn-rx filled on 01/27/21 1 tab po bid prn-ext med history shows humalog u-100 last filled 11/23/20 5 units plus ss tid max 51 units-pts and pt states only uses ss bid-pt states he took his last dose of metolazone on 02/08/21
[2021-02-09 18:45] VITALS: BP 127/70; PULSE 78; O2SAT 94
[2021-02-09 19:23] VITALS: BP 127/70; PULSE 74; RESP 18; O2SAT 97
== END 2021-02-09 19:20 | disposition home or self-care (01) ==
PROVIDERS: Emergency Provider Emergency Medicine; PCP Internal Medicine
DX: M54.2 Cervicalgia (principal); R10.2 Pelvic and perineal pain; Z79.82 Long term (current) use of aspirin; Z79.4 Long term (current) use of insulin; I25.10 Atherosclerotic heart disease of native coronary artery without angina pectoris; I11.0 Hypertensive heart disease with heart failure; I50.22 Chronic systolic (congestive) heart failure; E11.9 Type 2 diabetes mellitus without complications; I25.2 Old myocardial infarction; E78.5 Hyperlipidemia, unspecified
CPT/HCPCS: 70450; 71046; 72100; 73523; 73562; 73590; 99283; J7512

== ENCOUNTER 2021-02-15 14:38 | Emergency (ER) | payer MEDICARE, MEDICAID, SELFPAY ==
[2021-02-15 14:51] VITALS: BP 195/89; PULSE 78; RESP 18; TEMP 36.8; O2SAT 97; BMI 40.5
--- NOTE | 2021-02-15 15:31 | XR_ITS ---
WS: [id number] PORTABLE CHEST HISTORY: dyspnea/cough COMPARISON: 02/09/2021 Prior median sternotomy. LEFT subclavian Mediport with tip in the distal SVC. Subsegmental atelectasis at the lingula. No areas of dense consolidation. Normal vasculature. No pleu ral effusion or pneumothorax. Cardiac size: Mildly enlarged cardiac silhouette. Mediastinum/Aorta: Normal mediastinum. No osseous abnormality seen. XR/XR chest 1V portable [id number] IMPRESSION: Subsegmental linear atelectasis. Otherwise no pneumonia.
--- NOTE | 2021-02-15 15:37 | ED_ITS ---
HPI - General Adult General: Chief complaint: Altered Mental Status Stated complaint: DIFF BREATHING, 32 LB WATER GAIN Time Seen by Provider: 02/15/21 15:25 History of Present Illness: HPI narrative: 50-year-old male presents emergency room guarding or shortness of breath and swelling of his lower extremities. He has known history of some chronic kidney disease per his report. He states he has had a 32 pound weight gain in the last 2 weeks. He usually sees a financial systems manager in [place] and had contacted them today and they advised him to be seen at their office tomorrow. Presented here because he just been feeling worse and worse. He also reports decrease in urine output. No orthopnea no chest pain Onset (ago): week(s) Location: lower extremity (Bilateral) Severity: moderate Quality: aching Pain Consistency: constant Relieving factors: none Exacerbating factors: none Associated symptoms: Reports confusion and weakness; Deny chest pain, cough, diaphoresis, decreased appetite, dyspnea, fevers/chills, headache(s), malaise, nausea, rash, palpitations, seizures, short of breath, syncope or vomiting Treatments prior to arrival: none Review of Systems Const: Denies: malaise or diaphoresis ENMT: Denies: throat pain, ear or mastoid pain, nasal discharge or nasal congestion Card: Denies: chest pain, palpitations or syncope Resp: Denies: dyspnea GI: Denies: nausea or vomiting : Denies: flank pain, dysuria, urinary frequency or urinary urgency Skin/Breast: Denies: rash Neuro: Reports: confusion; Denies: headache(s) PFSH ED PFSH: Medical History Anemia Atherosclerotic heart disease of [place] coronary artery with other forms of angina pectoris hx of CAD with prior stenting of proximal LAD, LCx, RCA Chronic kidney disease -baseline Cr appears to be around 1.5 Chronic systolic heart failure EF=47%, diffuse LV hypokinesis, mildly increased LA size Depression Diabetes A1c-7.6 (08/2019) Foot drop, left GERD (gastroesophageal reflux disease) H/O acute myocardial infarction H/O deep venous thrombosis developed compartment syndrome Hyperlipidemia Hypertension Hypothyroidism Ischemic cardiomyopathy Osteoarthritis of spine Psychiatric care Surgical History H/O colonoscopy (11/14/20) 08/2015 H/O esophagogastroduodenoscopy (11/14/20) 08/2015 H/O removal of testicle left H/O skin graft H/O vasectomy History of appendectomy 1995 History of coronary artery stent placement 5x History of excision of mass 06/08/2019: Subcutaneous mass on back History of inguinal hernia repair, bilateral 1999 History of removal of Port-a-Cath Hx of cholecystectomy Port-A-Cath in place Family History Grandfather Cancer skin cancer Parkinson disease Brother Hypertension Father Heart disease Mother Hypertension Stroke Aneurysm Grandmother Aneurysm Other Crohn disease Denies family history of Anesthesia complication Bleeding disorder Social History Second hand smoke exposure: No Alcohol intake: former Former alcohol use details: Only holidays Lives independently: Yes Household members: significant other Marital status: Single Current occupational status: disabled History of recent travel: No Physical Exam Const: COMMON NORMALS: no acute distress GENERAL APPEARANCE: cooperative and comfortable ORIENTATION/CONSCIOUSNESS: Yes awake, Yes oriented to person, Yes oriented to place and Yes oriented to time HENMT: COMMON NORMALS: normocephalic and atraumatic HEAD & SCALP: normocephalic and atraumatic Neck/C-Spine: COMMON NORMALS: no JVD Resp: AUSCULTATION: crackles (Right greater than left) and wheezes Cardio: COMMON NORMALS: no JVD, regular rate, regular rhythm and No murmurs present (Cardio) RATE: regular rate RHYTHM: regular rhythm GI: COMMON NORMALS: Soft to palpation and No hepatosplenomegaly present AUSCULTATION: Yes normoactive bowel sounds PALPATION: Yes Soft to palpation, No Tenderness to palpation present (GI), No Guarding due to palpation present (GI) and Yes No hepatosplenomegaly present Extremity: OTHER: 1+ edema lower extremities significant scarring from previous fasciotomy site healed by secondary intent no skin breakdown or drainage Neuro: SENSORIUM/ORIENTATION: Yes oriented to person, Yes oriented to place and Yes oriented to time Skin: COMMON NORMALS: no rashes or lesions noted GENERAL SKIN EXAM: no rashes or lesions noted Course Vital Signs: Vital signs: Vital Signs Temperature 98.7 F 02/15/21 18:04 Pulse Rate 73 02/15/21 18:04 Respiratory Rate 19 H 02/15/21 18:04 Blood Pressure 133/77 02/15/21 18:04 Pulse Oximetry 94 02/15/21 18:04 MDM - General Adult MDM Narrative: Medical decision making narrative: Labs and imaging reviewed. Patient is not having any chest pain at this time. Renal Goeden discharge home I did give him some Lasix while he was here he has an appointment with nephrology tomorrow return if his further problems. He should keep his follow- up with nephrology tomorrow. Lab Data: Labs: Lab Results 02/15/21 02/15/21 02/15/21 15:14 16:00 16:29 WBC 10.0 10^3/uL 10^3 /uL (4.0-10.0) RBC 3.86 10^6/uL L 10 ^6/uL (4.1-5.3) Hgb 11.4 g/dL L g/dL (11.7-16.6) Hct 34.4 % L % (42.0-52.0) MCV 89.1 fl fl (80-94) MCH 29.5 pg pg (28.0-34.0) MCHC 33.1 g/dL g/dL (30.0-36.0) RDW 14.8 % % (12.1-15.1) Plt Count 282 10^3/cmm 10^3 /cmm (130-400) MPV 9.5 fL fL (7.4-10.4) Neut % (Auto) 74.2 % % Lymph % (Auto) 13.8 % % [place] % (Auto) 8.2 % % Eos % (Auto) 2.4 % % Baso % (Auto) 0.7 % % Neut # (Auto) 7.43 10^3/uL 10^3 /uL (1.8-7.7) Lymph # (Auto) 1.4 10^3/uL 10^3/ uL (0.8-4.8) [place] # (Auto) 0.8 10^3/uL 10^3/ uL (0.2-0.9) Eos # (Auto) 0.2 10^3/uL 10^3/ uL (0.0-0.8) Baso # (Auto) 0.1 10^3/uL 10^3/ uL (0.0-0.1) Nucleated RBC % (a uto) 0 % % Nucleated RBCs # 0.0 /100WBC /100W BC Specimen Type Arterial Sample Site Radial, left ABG pH 7.46 H (7.35-7.45) ABG pCO2 47.2 mmHg H mmHg (35-45) ABG pO2 65.1 mmHg L mmHg (80.0-100.0) ABG HCO3 33.9 mmol/L H mmo l/L (22-26) ABG O2 Saturation 93.0 ABG Base Excess 8.9 mmol/L H mmol /L (-2.0-2.0) Scottie Test Pos A-a O2 Gradient 3.4 mmHg L mmHg (5-10) Hematocrit 35.1 % L % (42-52) Hgb O2 Saturation 91.7 % L % (95-100) Carboxyhemoglobin 0.5 %THgb %THgb (0.4-20.1) Methemoglobin 1.0 % % (0.4-1.5) Total Hemoglobin 11.4 g/dL L g/dL (14-18) Sodium 136.0 mmol/L mmol /L (131-143) Potassium 3.0 mmol/L L mmol /L (3.5-5.0) Glucose 336.0 mg/dL H mg/ dL (70-115) Ionized Calcium 1.2 mmol/L mmol/L (1.1-1.4) O2 Delivery Device Room air FiO2 21.0 % % High Density Finishing Operator ID Amh Chloride Carbon Dioxide Anion Gap BUN Creatinine GFR Calculation Calculated Osmolal ity Calcium Total Bilirubin AST ALT Alkaline Phosphata se Troponin T Baselin e NT-Pro-B Natriuret Pep Total Protein Albumin Globulin Urine Color Straw (Yellow) Urine Appearance Clear (CLEAR) Urine pH 6 (5-7) Ur Specific Gravit y 1.005 (1.005-1.030) Urine Protein 1+ H (Negative) Urine Glucose (UA) 1+ H (Normal) Urine Ketones Negative (Negative) Urine Blood Neg (Negative) Urine Nitrate Negative (Negative) Urine Bilirubin Neg (Negative) Urine Urobilinogen Norm mg/dL mg/dL (Negative) Ur Leukocyte Carmen ase Negative (Negative) Urine RBC 0-4 /hpf H /hpf (0-2) Urine WBC 0-4 /hpf H /hpf (0-5) Ur Squamous Epith Cells 0-4 /hpf H /hpf (0-5) Amorphous Sediment Not Reportable Urine Bacteria Trace /hpf /hpf (NONE) 02/15/21 02/15/21 16:29 16:29 WBC RBC Hgb Hct MCV MCH MCHC RDW Plt Count MPV Neut % (Auto) Lymph % (Auto) [place] % (Auto) Eos % (Auto) Baso % (Auto) Neut # (Auto) Lymph # (Auto) [place] # (Auto) Eos # (Auto) Baso # (Auto) Nucleated RBC % (a uto) Nucleated RBCs # Specimen Type Sample Site ABG pH ABG pCO2 ABG pO2 ABG HCO3 ABG O2 Saturation ABG Base Excess Scottie Test A-a O2 Gradient Hematocrit Hgb O2 Saturation Carboxyhemoglobin Methemoglobin Total Hemoglobin Sodium 132 mmol/L L mmol /L (136-145) Potassium 3.0 mmol/L L mmol /L (3.5-5.1) Glucose 308 mg/dL H mg/dL (65-115) Ionized Calcium O2 Delivery Device FiO2 High Density Finishing Operator ID Chloride 90 mmol/L L mmol/ L (98-107) Carbon Dioxide 27 mmol/L mmol/L (22-29) Anion Gap 18.0 (5-19) BUN 74 mg/dL H mg/dL (6-20) Creatinine 2.6 mg/dL H mg/dL (0.7-1.2) GFR Calculation 26.1 mL/min L mL/ min (90-130) Calculated Osmolal ity 308 mOsm/kg H mOs m/kg (285-295) Calcium 8.9 mg/dL mg/dL (8.5-10.5) Total Bilirubin 0.4 mg/dL mg/dL (0.15-1.2) AST 11 U/L U/L (0-40) ALT 18 U/L U/L (0-41) Alkaline Phosphata se 109 IU/L IU/L (40-130) Troponin T Baselin e 33 ng/L H ng/L (0-15) NT-Pro-B Natriuret Pep 1060 pg/mL H pg/m L (0-125) Total Protein 6.3 g/dL L g/dL (6.6-8.7) Albumin 3.3 g/dL L g/dL (3.5-5.2) Globulin 3.0 g/dL g/dL (1.3-4.6) Urine Color Urine Appearance Urine pH Ur Specific Gravit y Urine Protein Urine Glucose (UA) Urine Ketones Urine Blood Urine Nitrate Urine Bilirubin Urine Urobilinogen Ur Leukocyte Carmen ase Urine RBC Urine WBC Ur Squamous Epith Cells Amorphous Sediment Urine Bacteria Discharge Plan Discharge Patient Disposition: Home Clinical Impression: CKD (chronic kidney disease), Anemia, Diabetes, Chronic anticoagulation, Chronic systolic heart failure, Fluid retention Condition: Stable Prescriptions: No Action (DME) diabetic shoes Qty: 1 RF: 0 multivitamin [Daily Multi-Vitamin] Tablet 1 tab PO QPM RF: 0 metoprolol tartrate 50 mg tablet 50 mg PO BID@0600,1800 RF: 0 Trulicity 0.75 mg/0.5 mL pen injector 0.75 mg SUBCUT Q7D RF: 0 aspirin 81 mg tablet,delayed release (DR/EC) 81 mg PO DAILY@0600 RF: 0 (DME) Elizabeth See Rx Instructions .Route .MEDSUPPLY Qty: 1 RF: 0 nitroglycerin [Nitrostat] 0.4 mg tablet, sublingual 0.4 mg SUBLINGUAL Q5M PRN (Reason: Chest Pain) Qty: 25 RF: 2 apixaban 2.5 mg tablet 2.5 mg PO Q12H Qty: 60 RF: 6 insulin lispro [Humalog U-100 Insulin] 100 unit/mL solution See Rx Instructions .ROUTE .COMPLEX RF: 0 metformin 500 mg tablet extended release 24 hr 500 mg PO BID@18 RF: 0 promethazine 25 mg tablet 25 mg PO Q6H PRN (Reason: nausea and vomiting) RF: 0 metolazone 5 mg tablet 5 mg PO EVERY OTHER DAY RF: 0 cyclobenzaprine 10 mg tablet 10 mg PO TID PRN (Reason: MUSCLE SPASMS) RF: 0 isosorbide mononitrate 30 mg tablet extended release 24 hr 30 mg PO BID@0600,1800 RF: 0 atorvastatin 40 mg tablet 40 mg PO QAM RF: 0 ranolazine 500 mg tablet extended release 12 hr 500 mg PO BID RF: 0 levothyroxine 88 mcg tablet 88 mcg PO QAM RF: 0 torsemide 100 mg tablet 100 mg PO QAM RF: 0 gabapentin 300 mg Capsule 300 mg PO TID RF: 0 Tresiba FlexTouch U-200 200 unit/mL (3 mL) insulin pen 22 unit SUBCUT BEDTIME RF: 0 furosemide 40 mg tablet 80 mg PO BID RF: 0 citalopram 40 mg tablet 40 mg PO QAM RF: 0 hydrocodone-acetaminophen 5-325 mg tablet 2 tab PO BEDTIME PRN (Reason: pain) RF: 0 potassium chloride [Klor-Con M20] 20 mEq tablet,ER particles/crystals 20 meq PO QAM RF: 0 trazodone 100 mg tablet 300 mg PO BEDTIME PRN (Reason: insomnia) RF: 0 amlodipine 5 mg Tablet 5 mg PO DAILY RF: 0 Discharge Orders: Discharge ED (Routine); Ordered 02/15/21 Ordered By: Timo Mckoy Referrals: Kp Montanez DO [Primary Care Provider] - Discharge Diet: Usual diet Discharge Activity: Increase activity as tolerated Patient Instructions: Opioid Safety Activity Restrictions/Additional Instructions: Follow-up with your financial systems manager tomorrow as scheduled. Coding Level of Care Code ED Food Mixer for Chg Fwd Exam Detailed
[2021-02-15 15:55] LABS: Add Urine Microscopic? YES; Bilirubin Urine Neg (Negative); Blood Urine Neg (Negative); Glucose Urine UA 1+ (Normal); Ketones Urine Negative (Negative); Leukocyte Esterase Urine Negative (Negative); Nitrate Urine Negative (Negative); Protein Urine 1+ (Negative); Specific Gravity, Urine 1.005 (1.005-1.030); Urine Appearance Clear (CLEAR); Urine Color Straw (Yellow); Urobilinogen Urine Norm (Negative); pH Urine 6 (5-7)
[2021-02-15 15:56] LABS: Add Urine Culture? No; Bacteria Urine TRACE /hpf; RBC Urine 0-4 /hpf (0-2); Squamous Epithelial Cell Urine 0-4 /hpf (0-5); WBC Urine 0-4 /hpf (0-5)
[2021-02-15 16:28] LABS: ABG PCO2 47.2 mmHg (35-45); ABG PH Result 7.46 (7.35-7.45); Alveolar-Arterial Oxygen Gradi 3.4 mmHg (5-10); Arterial Blood Gas Hematocrit 35.1 % (42-52); Base Excess ABG 8.9 mmol/L (-2.0-2.0); Blood Gas Allen Test Pos; Blood Gas Operator Identificat AMH; Blood Gas Sample Site Radial, left; Blood Gas Sample Type Arterial; Carboxyhemoglobin 0.5 %THgb (0.4-20.1); HCO3 ABG 33.9 mmol/L (22-26); HGB O2 Sat 91.7 % (95-100); Ionized Calcium Level - ABG 1.2 mmol/L (1.1-1.4); Oxygen Device ROOM AIR; PO2 ABG 65.1 mmHg (80.0-100.0); Total Hemoglobin 11.4 g/dL (14-18)
[2021-02-15 16:32] VITALS: BP 126/61; PULSE 80; RESP 19; O2SAT 96
[2021-02-15 16:42] LABS: Basophils # 0.1 10^3/uL (0.0-0.1); Basophils % 0.7 %; Eosinophils # 0.2 10^3/uL (0.0-0.8); Eosinophils % 2.4 %; Hematocrit 34.4 % (42.0-52.0); Hemoglobin 11.4 g/dL (11.7-16.6); Lymphocytes # 1.4 10^3/uL (0.8-4.8); Lymphocytes % 13.8 %; Mean Corpuscular HGB Conc 33.1 g/dL (30.0-36.0); Mean Corpuscular Hemoglobin 29.5 pg (28.0-34.0); Mean Corpuscular Volume 89.1 fl (80-94); Mean Platelet Volume 9.5 fL (7.4-10.4); Monocytes # 0.8 10^3/uL (0.2-0.9); Monocytes % 8.2 %; Neutrophils # 7.43 10^3/uL (1.8-7.7); Neutrophils % 74.2 %; Nucleated Red Blood Cells % 0 %; Platelet Count 282 10^3/cmm (130-400); Red Blood Count 3.86 10^6/uL (4.1-5.3); Red Cell Distribution Width 14.8 % (12.1-15.1)
[2021-02-15] MEDS: FUROsemide 10 mg/mL SDV 10mL 60 MG IVP (16:53)
[2021-02-15 17:09] LABS: Troponin(5th) Baseline 33 ng/L (0-15)
[2021-02-15 17:20] LABS: Alanine Aminotransferase 18 U/L (0-41); Albumin Level 3.3 g/dL (3.5-5.2); Alkaline Phosphatase 109 IU/L (40-130); Aspartate Amino Transferase 11 U/L (0-40); Blood Urea Nitrogen 74 mg/dL (6-20); Calcium 8.9 mg/dL (8.5-10.5); Carbon Dioxide 27 mmol/L (22-29); Chloride 90 mmol/L (98-107); Glomerular Filtration Rate 26.1 mL/min (90-130); Glucose 308 mg/dL (65-115); Osmolality Calculated 308 mOsm/kg (285-295); Sodium 132 mmol/L (136-145); Total Bilirubin 0.4 mg/dL (0.15-1.2); Total Protein 6.3 g/dL (6.6-8.7)
--- NOTE | 2021-02-15 17:32 | ECG_ITS ---
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 Measurements Intervals [place] Rate: 75 P: 46 ME: 187 QRS: 31 QRSD: 109 T: 42 QT: 449 QTc: 503 Interpretive Statements SINUS RHYTHM POSSIBLE LEFT ATRIAL ENLARGEMENT [-0.1mV P-WAVE IN V1/V2] POSSIBLE ANTERIOR MYOCARDIAL INFARCTION , OF INDETERMINATE AGE [30 ms Q WAVE IN V3/V4, OR R < 0.2 mV IN V4] Compared to ECG 01/09/2021 04:56:29 No significant changes Electronically Signed On 02-15-2021 21:50:52 CDT by Karen Choi M.D. [email or web address] [facility].[employer]/store/[id number]
[2021-02-15 18:03] LABS: NT Pro B Type Natriuretic Pept 1060 pg/mL (0-125)
[2021-02-15 18:04] VITALS: BP 133/77; PULSE 73; RESP 19; TEMP 37.1; O2SAT 94
== END 2021-02-15 18:06 | disposition home or self-care (01) ==
PROVIDERS: Emergency Provider Family Medicine; PCP Internal Medicine
DX: E11.22 Type 2 diabetes mellitus with diabetic chronic kidney disease (principal); I13.0 Hypertensive heart and chronic kidney disease with heart failure and stage 1 through stage 4 chronic kidney disease, or unspecified chronic kidney disease; N18.9 Chronic kidney disease, unspecified; I50.22 Chronic systolic (congestive) heart failure; D64.9 Anemia, unspecified; Z79.01 Long term (current) use of anticoagulants; R60.9 Edema, unspecified; Z79.82 Long term (current) use of aspirin; Q84.6 Other congenital malformations of nails; I25.10 Atherosclerotic heart disease of native coronary artery without angina pectoris; E78.5 Hyperlipidemia, unspecified
CPT/HCPCS: 36600; 71045; 80051; 80053; 81001; 82330; 82805; 83880; 84484; 85025; 93005; 96374; 99283; J1940

== ENCOUNTER → 2021-02-20 14:37 | Day surgery (SDC) | payer MEDICARE, MEDICAID, SELFPAY ==
[2021-02-20 15:22] VITALS: BP 131/74; PULSE 76; RESP 18; TEMP 36.1; O2SAT 96
[2021-02-20 16:46] LABS: Magnesium 1.9 mg/dL (1.7-2.3); NT Pro B Type Natriuretic Pept 1068 pg/mL (0-125)
[2021-02-20 16:47] LABS: Anion Gap 17.3 (5-19); Blood Urea Nitrogen 70 mg/dL (6-20); Calcium 8.6 mg/dL (8.5-10.5); Carbon Dioxide 29 mmol/L (22-29); Chloride 90 mmol/L (98-107); Glomerular Filtration Rate 23.9 mL/min (90-130); Glucose 244 mg/dL (65-115); Osmolality Calculated 305 mOsm/kg (285-295); Potassium 3.3 mmol/L (3.5-5.1); Sodium 133 mmol/L (136-145)
== END ==
PROVIDERS: Internal Medicine Cardiovascular Disease; Internal Medicine Nephrology; PCP Internal Medicine; Visit Provider Nurse Practitioner Family
DX: N18.4 Chronic kidney disease, stage 4 (severe) (principal); I50.42 Chronic combined systolic (congestive) and diastolic (congestive) heart failure
CPT/HCPCS: 36591; 80048; 83735; 83880; 96523

== ENCOUNTER → 2021-02-22 11:08 | Outpatient (BNVA) | payer MEDICARE, MEDICAID, SELFPAY | PROVIDERS: PCP Internal Medicine; Visit Provider Anesthesiology Pain Medicine | DX: G89.29 Other chronic pain (principal); M51.9 Unspecified thoracic, thoracolumbar and lumbosacral intervertebral disc disorder; M53.3 Sacrococcygeal disorders, not elsewhere classified; M25.551 Pain in right hip; M19.90 Unspecified osteoarthritis, unspecified site; S79.919A Unspecified injury of unspecified hip, initial encounter; M20.42 Other hammer toe(s) (acquired), left foot; L60.3 Nail dystrophy; L84 Corns and callosities; M21.371 Foot drop, right foot; K46.9 Unspecified abdominal hernia without obstruction or gangrene; X58.XXXA Exposure to other specified factors, initial encounter; I50.9 Heart failure, unspecified; R35.89 Other polyuria; E11.42 Type 2 diabetes mellitus with diabetic polyneuropathy; E11.22 Type 2 diabetes mellitus with diabetic chronic kidney disease; N18.9 Chronic kidney disease, unspecified; Z79.4 Long term (current) use of insulin; Z79.891 Long term (current) use of opiate analgesic | CPT/HCPCS: 99214 ==

== ENCOUNTER → 2021-02-28 08:03 | Day surgery (SDC) | payer MEDICARE, MEDICAID, SELFPAY ==
[2021-02-28 08:15] VITALS: BP 145/72; PULSE 72; RESP 18; TEMP 36.4; O2SAT 96
[2021-02-28 09:55] LABS: Blood Urea Nitrogen 32 mg/dL (6-20); Carbon Dioxide 29 mmol/L (22-29); Chloride 100 mmol/L (98-107); Glomerular Filtration Rate 33.3 mL/min (90-130); Glucose 212 mg/dL (65-115); Osmolality Calculated 301 mOsm/kg (285-295); Sodium 139 mmol/L (136-145)
== END ==
PROVIDERS: Internal Medicine Nephrology; PCP Internal Medicine; Visit Provider Registered Nurse
DX: N18.4 Chronic kidney disease, stage 4 (severe) (principal)
CPT/HCPCS: 36591; 80048

== ENCOUNTER → 2021-03-21 13:05 | Day surgery (SDC) | payer MEDICARE, MEDICAID, SELFPAY ==
[2021-03-21 13:15] VITALS: BP 157/90; PULSE 102; RESP 18; TEMP 36.7; O2SAT 95
[2021-03-21 13:43] LABS: Basophils # 0.1 10^3/uL (0.0-0.1); Eosinophils # 0.2 10^3/uL (0.0-0.8); Eosinophils % 2.3 %; Hematocrit 34.6 % (42.0-52.0); Hemoglobin 11.1 g/dL (11.7-16.6); Lymphocytes # 1.7 10^3/uL (0.8-4.8); Lymphocytes % 17.2 %; Mean Corpuscular HGB Conc 32.1 g/dL (30.0-36.0); Mean Corpuscular Hemoglobin 28.8 pg (28.0-34.0); Mean Corpuscular Volume 89.9 fl (80-94); Mean Platelet Volume 9.5 fL (7.4-10.4); Monocytes # 0.9 10^3/uL (0.2-0.9); Monocytes % 8.6 %; Neutrophils % 70.4 %; Nucleated Red Blood Cells % 0 %; Platelet Count 270 10^3/cmm (130-400); Red Blood Count 3.85 10^6/uL (4.1-5.3); Red Cell Distribution Width 14.7 % (12.1-15.1); White Blood Count 9.9 10^3/uL (4.0-10.0)
[2021-03-21 14:11] LABS: Creatinine Urine, Random 59 mg/dL (39-259)
[2021-03-21 14:22] LABS: Microalbum Creatinine Ratio Ur 2542 mg/dL (0-20); Microalbumin Random Urine 150 ug/dL (0-20)
[2021-03-21 14:31] LABS: Albumin Level 3.5 g/dL (3.5-5.2); Anion Gap 11.4 (5-19); Blood Urea Nitrogen 35 mg/dL (6-20); Calcium 8.6 mg/dL (8.5-10.5); Carbon Dioxide 30 mmol/L (22-29); Chloride 97 mmol/L (98-107); Glomerular Filtration Rate 33.3 mL/min (90-130); Glucose 177 mg/dL (65-115); Phosphorus 3.5 mg/dL (2.5-4.5); Potassium 4.4 mmol/L (3.5-5.1); Sodium 134 mmol/L (136-145)
[2021-03-21 14:45] LABS: 25 Hydroxy Vitamin D 25 ng/mL (30-100)
[2021-03-21 15:20] LABS: Calcium 8.5 mg/dL (8.5-10.5)
[2021-03-21 15:28] LABS: Parathyroid Hormone 118.1 pg/mL (15-65)
== END ==
PROVIDERS: PCP Internal Medicine; Visit Provider Internal Medicine Nephrology
DX: N18.6 End stage renal disease (principal)
CPT/HCPCS: 36591; 80069; 82044; 82306; 82310; 83970; 85025; 96523

== ENCOUNTER → 2021-03-23 09:42 | Outpatient (BNVA) | payer MEDICARE, MEDICAID, SELFPAY | PROVIDERS: PCP Internal Medicine; Visit Provider Anesthesiology Pain Medicine | DX: G89.29 Other chronic pain (principal); M51.17 Intervertebral disc disorders with radiculopathy, lumbosacral region; M51.9 Unspecified thoracic, thoracolumbar and lumbosacral intervertebral disc disorder; M47.9 Spondylosis, unspecified; M53.3 Sacrococcygeal disorders, not elsewhere classified; M25.551 Pain in right hip; K46.9 Unspecified abdominal hernia without obstruction or gangrene; M21.371 Foot drop, right foot; M19.90 Unspecified osteoarthritis, unspecified site; Z79.891 Long term (current) use of opiate analgesic | CPT/HCPCS: 99214 ==

== ENCOUNTER 2021-03-26 12:14 | Inpatient (IN) | payer MEDICARE, MEDICAID, SELFPAY ==
[2021-03-26] VITALS (17 sets, daily range): BP systolic 135–159; BP diastolic 70–97; PULSE 76–105; RESP 16–28; TEMP 36.4–37.4; O2SAT 91–96; BMI 40.3
--- NOTE | 2021-03-26 12:18 | XRR_ITS ---
PROCEDURE INFORMATION: Exam: XR Chest Exam date and time: 03/26/2021 12:18 PM Age: 50 years old Clinical indication: Dyspnea TECHNIQUE: Imaging protocol: XR of the chest. Views: 1 view. COMPARISON: CR XR chest 1V portable [id number] 02/15/2021 3:40 PM FINDINGS: Tubes, catheters and devices: Left port with tip in the SVC. Lungs: There is subsegmental atelectasis in the lower left chest. There is patchy and streaky opacity at the medial right base that may reflect pneumonia. Pleural spaces: No pleural effusion.. No pneumothorax. Heart/Mediastinum: The cardiac silhouette is approximately unchanged. No gross evidence of pneumomediastinum. Bones/joints: Median sternotomy wires are noted. No gross fracture. XR/XR chest 1V portable [id number] IMPRESSION: Patchy and streaky opacity at the medial right base that may reflect pneumonia. Radiation Dose CTDIVOL = (mGy): DLP = (mGy-cm)
--- NOTE | 2021-03-26 12:19 | ECG_ITS ---
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 Measurements Intervals [place] Rate: 99 P: 39 SD: 156 QRS: 27 QRSD: 98 T: 61 QT: 359 QTc: 462 Interpretive Statements SINUS RHYTHM POSSIBLE LEFT ATRIAL ENLARGEMENT [-0.1mV P-WAVE IN V1/V2] POSSIBLE ANTERIOR MYOCARDIAL INFARCTION , OF INDETERMINATE AGE [30 ms Q WAVE IN V3/V4, OR R < 0.2 mV IN V4] Compared to ECG 02/15/2021 15:50:42 No significant changes Electronically Signed On 03-26-2021 21:54:56 POWDER CORE TESTER by Garrison Mckinney M.D. [email or web address]/store/NU/[id number]
--- NOTE | 2021-03-26 12:54 | ED_ITS ---
HPI - General Adult General: Chief complaint: Shortness of Breath/Dyspnea Stated complaint: SOB; N/V Time Seen by Provider: 03/26/21 12:18 History of Present Illness: HPI narrative: CC: Dyspnea HPI: This is a [50] yo patient w/ hx of CABG, CHF (EF of 45%) presenting ot the ED with dyspnea and increased work of breathing x 3 weeks in the setting of increased weight gain and lower extremity swelling. +patient endorse 1 epsiode of chest pain at 8am today. Endorses of orthopnea and increased pillow usage at night. Patient is followed by Breeding Manager Dr. Lopez. Denies chest pain, N/V, diaphoresis, shoulder pain pain or back pain. Patient has no fever/chill, or sputum production. No GI or other complaints. Denies any pleuritic chest pain, recent surgery/immobilization/travel, or hematemesis or hx of VTE in the past. Onset: 3 weeks SOB, chest pain this AM Duration: ongoing for the last 3 weeks Location: home Severity: mild/moderate Review of Systems Narrative: Constitutional: No fever, no chills. HEENT: No vision changes CV: +chest pain, no palpitations PULM: No productive cough, +dyspnea GI: No abdominal pain, no N/V/D. : No dysuria MSKEL: No muscle pain, leg swelling SKIN: No new rashes, no lesions. NEURO: No headache, no focal weakness. 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 hx of CAD with prior stenting of proximal LAD, LCx, RCA Chronic kidney disease -baseline Cr appears to be around 1.5 Chronic systolic heart failure EF=47%, diffuse LV hypokinesis, mildly increased LA size Depression Diabetes A1c-7.6 (08/2019) Foot drop, left GERD (gastroesophageal reflux disease) H/O acute myocardial infarction H/O deep venous thrombosis developed compartment syndrome Hyperlipidemia Hypertension Hypothyroidism Ischemic cardiomyopathy Osteoarthritis of spine Psychiatric care Surgical History H/O colonoscopy (11/14/20) 08/2015 H/O esophagogastroduodenoscopy (11/14/20) 08/2015 H/O removal of testicle left H/O skin graft H/O vasectomy History of appendectomy 1995 History of coronary artery stent placement 5x History of excision of mass 06/08/2019: Subcutaneous mass on back History of inguinal hernia repair, bilateral 1999 History of removal of Port-a-Cath Hx of cholecystectomy Port-A-Cath in place Family History Grandfather Cancer skin cancer Parkinson disease Brother Hypertension Father Heart disease Mother Hypertension Stroke Aneurysm Grandmother Aneurysm Other Crohn disease Denies family history of Anesthesia complication Bleeding disorder Social History Second hand smoke exposure: No Alcohol intake: former Former alcohol use details: Only holidays Lives independently: Yes Household members: significant other Marital status: Single Current occupational status: disabled History of recent travel: No Physical Exam Narrative: EXAM NARRATIVE: Head: Atraumatic Eyes: PERRL, conjunctiva without injection ENT: Mucous membrane moist NECK: Supple without lymphadenopathy, mild JVD LUNGS: +mild crackles b/l CV: Sinus tachycardia ABDOMEN: Soft, nontender in all quadrants, +mild abdominal distension EXTREMITY: Normal ROM, bilateral 1+ edema in the LE, no shabbir?s sign SKIN: No rash or erythema NEURO: Awake and alert. No focal motor deficits. PSYCH: Normal mood and affect. Course Vital Signs: Vital signs: Vital Signs Temperature 99.4 F 03/26/21 12:22 Pulse Rate 105 H 03/26/21 12:22 Respiratory Rate 28 H 03/26/21 13:35 Blood Pressure 145/85 03/26/21 12:22 Pulse Oximetry 94 03/26/21 13:35 MDM - General Adult MDM Narrative: Medical decision making narrative: [50]yo pt w/ hx of CHF (EF of 45%) presenting to the ED with dyspnea and increased work of breathing concerning acute on chronic CHF exacerbation. Physical exam consistent signs of fluid overload including crackles bilaterally and LE swelling. Workup today: ECG, CBC, BMP, Troponin, BNP, CXR. Intervention: IV lasix after potassium check Based on history, exam and findings, presentation most consistent with acute on chronic heart failure. Low suspicion for PNA, ACS, tamponade, aortic dissection. EKG: No STEMI and no evidence of Brugada?s sign, delta wave, epsilon wave, significantly prolonged QTc, or malignant arrhythmia. XR chest showed possible PNA. WBC of 13K, s/p azithromycin and ceftraixone [2:30pm] On reassessment, patient is stable and patient is mentating without issues. Given lasix 40mg x 1 in the ER with significant symptom improvement in dyspnea. Patient likely have combination of CHF with PNA. Will be admitted for diuresis and ABX. Disposition: Admission Lab Data: Labs: Lab Results 03/26/21 03/26/21 03/26/21 13:07 13:07 13:07 WBC 13.7 10^3/uL H 10 ^3/uL (4.0-10.0) RBC 3.59 10^6/uL L 10 ^6/uL (4.1-5.3) Hgb 10.5 g/dL L g/dL (11.7-16.6) Hct 31.4 % L % (42.0-52.0) MCV 87.5 fl fl (80-94) MCH 29.2 pg pg (28.0-34.0) MCHC 33.4 g/dL g/dL (30.0-36.0) RDW 14.5 % % (12.1-15.1) Plt Count 256 10^3/cmm 10^3 /cmm (130-400) MPV 9.3 fL fL (7.4-10.4) Neut % (Auto) 85.3 % % Lymph % (Auto) 7.6 % % [place] % (Auto) 5.6 % % Eos % (Auto) 0.6 % % Baso % (Auto) 0.4 % % Neut # (Auto) 11.65 10^3/uL H 1 0^3/uL (1.8-7.7) Lymph # (Auto) 1.0 10^3/uL 10^3/ uL (0.8-4.8) [place] # (Auto) 0.8 10^3/uL 10^3/ uL (0.2-0.9) Eos # (Auto) 0.1 10^3/uL 10^3/ uL (0.0-0.8) Baso # (Auto) 0.1 10^3/uL 10^3/ uL (0.0-0.1) Nucleated RBC % (a uto) 0 % % Nucleated RBCs # 0.0 /100WBC /100W BC Sodium 139 mmol/L mmol/L (136-145) Potassium 3.3 mmol/L L mmol /L (3.5-5.1) Chloride 108 mmol/L H mmol /L (98-107) Carbon Dioxide 22 mmol/L mmol/L (22-29) Anion Gap 12.3 (5-19) BUN 37 mg/dL H mg/dL (6-20) Creatinine 1.7 mg/dL H mg/dL (0.7-1.2) GFR Calculation 42.5 mL/min L mL/ min (90-130) Glucose 153 mg/dL H mg/dL (65-115) Calculated Osmolal ity 300 mOsm/kg H mOs m/kg (285-295) Calcium 6.0 mg/dL L mg/dL (8.5-10.5) Troponin T Baselin e 36 ng/L H ng/L (0-15) NT-Pro-B Natriuret Pep 1847 pg/mL H pg/m L (0-125) Imaging Data^: Other Imaging: Radiologist's impression: [employer] [id number] ReportSigned Patient: Rei Queen IIUnit #: [id number]: 1970Acct#:[id number]/Sex: 50 / MADM Date: 03/26/21Loc[facility]/Bed:Attending Dr: Ordering Provider/Ordering MD: Jose Macias MD Date of Service: 03/26/21 Procedure(s): XR chest 1V portable [id number] Accession Number(s): [id number] Report Number: [id number] PROCEDURE INFORMATION: Exam: XR Chest Exam date and time: 03/26/2021 12:18 PM Age: 50 years old Clinical indication: Dyspnea TECHNIQUE: Imaging protocol: XR of the chest. Views: 1 view. COMPARISON: CR XR chest 1V portable [id number] 02/15/2021 3:40 PM FINDINGS: Tubes, catheters and devices: Left port with tip in the SVC. Lungs: There is subsegmental atelectasis in the lower left chest. There is patchy and streaky opacity at the medial right base that may reflect pneumonia. Pleural spaces: No pleural effusion.. No pneumothorax. Heart/Mediastinum: The cardiac silhouette is approximately unchanged. No gross evidence of pneumomediastinum. Bones/joints: Median sternotomy wires are noted. No gross fracture. XR/XR chest 1V portable [id number] IMPRESSION: Patchy and streaky opacity at the medial right base that may reflect pneumonia. Radiation Dose CTDIVOL = (mGy): DLP = (mGy-cm) Dictated By:Deann Namigned By:Deann Namigned Date/Time:03/26/21 1312DD/ 1218 Discharge Plan Discharge Patient Disposition: Admitted As Inpatient Clinical Impression: Acute exacerbation of CHF (congestive heart failure), Recent weight gain, Acute dyspnea Condition: Stable Coding Level of Care Code ED Brick Machine Operator for Aaron Irene
[2021-03-26 13:12] LABS: Basophils # 0.1 10^3/uL (0.0-0.1); Basophils % 0.4 %; Eosinophils # 0.1 10^3/uL (0.0-0.8); Eosinophils % 0.6 %; Hematocrit 31.4 % (42.0-52.0); Hemoglobin 10.5 g/dL (11.7-16.6); Lymphocytes % 7.6 %; Mean Corpuscular HGB Conc 33.4 g/dL (30.0-36.0); Mean Corpuscular Hemoglobin 29.2 pg (28.0-34.0); Mean Corpuscular Volume 87.5 fl (80-94); Mean Platelet Volume 9.3 fL (7.4-10.4); Monocytes # 0.8 10^3/uL (0.2-0.9); Monocytes % 5.6 %; Neutrophils # 11.65 10^3/uL (1.8-7.7); Neutrophils % 85.3 %; Nucleated Red Blood Cells % 0 %; Platelet Count 256 10^3/cmm (130-400); Red Blood Count 3.59 10^6/uL (4.1-5.3); Red Cell Distribution Width 14.5 % (12.1-15.1); White Blood Count 13.7 10^3/uL (4.0-10.0)
[2021-03-26] MEDS: promethazine 25 mg/mL SDV 1 mL 12.5 MG IM (13:32)
[2021-03-26] MEDS: aspirin 325 mg Tablet PO (13:32)
[2021-03-26 13:33] LABS: Troponin(5th) Baseline 36 ng/L (0-15)
[2021-03-26] MEDS: morphine 4 mg/mL SDV 1 mL IVP (13:35)
[2021-03-26 13:43] LABS: Anion Gap 12.3 (5-19); Blood Urea Nitrogen 37 mg/dL (6-20); Carbon Dioxide 22 mmol/L (22-29); Chloride 108 mmol/L (98-107); Glomerular Filtration Rate 42.5 mL/min (90-130); Glucose 153 mg/dL (65-115); NT Pro B Type Natriuretic Pept 1847 pg/mL (0-125); Osmolality Calculated 300 mOsm/kg (285-295); Potassium 3.3 mmol/L (3.5-5.1); Sodium 139 mmol/L (136-145)
[2021-03-26] MEDS: azithromycin 250 mg Tablet 500 MG PO (14:01)
[2021-03-26] MEDS: cefTRIAXone 1,000 MG in sodium chloride 0.9% (plus) 50 ML 100 MG IV (14:10)
--- NOTE | 2021-03-26 14:19 | ECG_ITS ---
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 Measurements Intervals [place] Rate: 88 P: 23 DE: 182 QRS: 27 QRSD: 100 T: 58 QT: 385 QTc: 468 Interpretive Statements SINUS RHYTHM POSSIBLE ANTERIOR MYOCARDIAL INFARCTION , PROBABLY OLD [30 ms Q WAVE IN V3/V4, OR R < 0.2 mV IN V4] Compared to ECG 03/26/2021 12:34:25 No significant changes Electronically Signed On 03-26-2021 21:58:52 METABOLIC SPECIALIST by Garrison Mckinney M.D. [email or web address] general [email or web address] Health, Inc.[facility].[employer]/store/OM/[id number]/[id number]
--- NOTE | 2021-03-26 14:42 | PC.NURSE ---
Cardiac monitoring was initiated upon pt arrival into room.
--- NOTE | 2021-03-26 15:22 | CTR_ITS ---
PROCEDURE INFORMATION: Exam: CT Chest Without Contrast; Diagnostic Exam date and time: 03/26/2021 3:22 PM Age: 50 years old Clinical indication: Shortness of breath. TECHNIQUE: Imaging protocol: Diagnostic computed tomography of the chest without contrast. Radiation optimization: All CT scans at this facility use at least one of these dose optimization techniques: automated exposure control; mA and/or kV adjustment per patient size (includes targeted exams where dose is matched to clinical indication); or iterative reconstruction. COMPARISON: CT chest con [id number] 07/09/2019 9:53 PM RADIATION DOSE METRICS: Total DLP (mGy-cm): 955.51 FINDINGS: Tubes, catheters and devices: Left port with tip in the SVC/right atrial junction. Lungs: There are patchy airspace opacities in the lower lungs bilaterally concerning for bilateral pneumonia. A calcified granuloma is seen in the left upper lobe. Foci of subsegmental atelectasis bilaterally. No pulmonary mass. Pleural spaces: No pleural effusion.. No pneumothorax. Heart: The heart is enlarged. Coronary arterial calcifications are noted. No pericardial effusion. Aorta: No thoracic aortic aneurysm. Lymph nodes: No significant mediastinal lymphadenopathy.. Mildly prominent benign-appearing axillary lymph nodes. Diaphragm: No hiatal hernia. Gallbladder and bile ducts: The gallbladder has been removed. A benign adrenal adenoma on the right measures 2.2 cm. A benign adrenal adenoma on the left measures 2.7 cm. A periportal lymph node measures 1.3 x 2.4 cm. The liver is enlarged measuring at least 17.6 cm. Bones/joints: Median sternotomy wires are noted. No acute fracture is identified. CT/CT chest con [id number] IMPRESSION: 1. Findings compatible bilateral pneumonia in the lower lobes. 2. Cardiomegaly with coronary artery disease. 3. Hepatomegaly with periportal lymphadenopathy. COMMENTS: Consistent with the [employer]'s Incidental Findings Committee white paper (J Am Javier Radiol 2017): For any incidental adrenal lesion greater than 1 cm but less than 4 cm classified in this report as benign, likely benign, or containing fat (including classification as an adenoma or myelolipoma), no follow-up imaging is recommended per consensus recommendations based on imaging criteria. Further lab evaluation could be pursued if warranted based on clinical findings. Radiation Dose CTDIVOL = (mGy): DLP = 955.51 (mGy-cm)
[2021-03-26 15:25] LABS: Troponin 5 2HR 41.24 ng/L (0-15); Troponin 5 2HR Delta 5.24 ABS# (0-10)
[2021-03-26 15:28] LABS: SARS Covid-2 Antigen Negative (Negative)
--- NOTE | 2021-03-26 15:31 | PM.HP ---
Providers/Chief Complaint Admitting Physician: Jaydon Juarez MD Primary Care Provider: pK Montanez DO Chief Complaint: SOB; N/V History of Present Illness This is a 50-year-old male with a past medical history of CAD status post stenting x3, history of systolic CHF, insulin-dependent type 2 diabetes mellitus, GERD, CKD, history of DVT, with compartment syndrome, who presents [facility] due to shortness of breath Patient tells me that he has been experiencing shortness of breath for the last day, with fatigue, malaise, nonproductive cough, low-grade fevers, no nausea, no vomiting, no chest pain he tells me that he woke up with shortness of breath, he has orthopnea, paroxysmal nocturnal dyspnea, increased swelling of his abdomen, increased bilateral extremity edema, he tells me that he has gained over 20 pounds in the last few weeks, no known history of Covid exposure, has received both Covid vaccines, no known exposure to influenza. He does tell me that he traveled to [facility] to see family, he took a lot of stops, no hemoptysis, no chest pain, no calf pain, no calf swelling, but does have a history of a DVT in the past with associated compartment syndrome, is on Eliquis, reports compliance with therapy, is on Bumex 2 mg twice daily for his heart failure, reports compliance Review of Systems Const: Reports: fever(s), fatigue and malaise; Denies: chills Eyes: Denies: change in vision or blurry vision ENMT: Denies: nasal congestion Card: Reports: edema, dyspnea on exertion and orthopnea; Denies: chest pain, palpitations, irregular heart rhythm, lightheadedness, syncope or pre-syncope Resp: Reports: dyspnea and non-productive cough; Denies: productive cough or wheezing GI: Denies: abdominal pain, nausea, vomiting, hematemesis, diarrhea, constipation, hematochezia or melena : Denies: flank pain, difficulty urinating, dysuria or urinary frequency Musc: Denies: neck pain or back pain Skin/Breast: Denies: rash Neuro: Denies: headache(s), dizziness or vertigo Psych: Denies: anxiety or depression Endo: Denies: polyuria Medications/Allergies Home Medications Medication Instructions Recorded Confirmed Last Taken Type aspirin 81 mg tablet,delayed 81 mg PO DAILY@0600 06/01/19 03/26/21 03/25/21 History release dulaglutide 0.75 mg/0.5 mL 0.75 mg SUBCUT Q7D 06/01/19 03/26/21 03/25/21 History subcutaneous pen injector metoprolol tartrate 50 mg tablet 50 mg PO BID@0600,1800 06/01/19 03/26/21 03/25/21 History multivitamin 1 tab PO QPM 06/01/19 03/26/21 03/25/21 History cyclobenzaprine 10 mg PO TID PRN 01/07/20 03/26/21 03/20/21 History isosorbide mononitrate 30 mg PO BID@0600,1800 09/05/20 03/26/21 03/25/21 History insulin lispro [Humalog U-100 See Rx Instructions .ROUTE .COMPLEX 09/25/20 03/26/21 03/20/21 History Insulin] nitroglycerin 0.4 mg sublingual 0.4 mg SUBLINGUAL Q5M PRN #25 tab 10/10/20 03/26/21 02/20/21 Rx tablet apixaban 2.5 mg tablet 2.5 mg PO Q12H #60 tab 10/18/20 03/26/21 03/25/21 Rx atorvastatin 40 mg PO QAM 11/04/20 03/26/21 03/25/21 History ranolazine 500 mg PO BID 01/08/21 03/26/21 03/25/21 History amlodipine 10 mg PO DAILY 02/09/21 03/26/21 03/25/21 History insulin degludec [Tresiba 22 unit SUBCUT BEDTIME 02/09/21 03/26/21 03/25/21 History FlexTouch U-200] levothyroxine 88 mcg PO QAM 02/09/21 03/26/21 03/25/21 History potassium chloride [Klor-Con M20] 20 meq PO QAM 02/09/21 03/26/21 03/25/21 History trazodone 300 mg PO BEDTIME PRN 02/09/21 03/26/21 03/20/21 History bumetanide 2 mg PO BID 02/20/21 03/26/21 03/25/21 History promethazine 25 mg tablet 25 mg PO Q6H PRN 02/22/21 03/26/21 03/20/21 History hydroxyzine HCl 50 mg tablet 50 mg PO QID PRN #120 tab 03/15/21 03/26/21 03/20/21 Rx gabapentin 600 mg tablet 600 mg PO TID #90 tab 03/23/21 03/26/21 03/25/21 Rx hydrocodone 5 mg-acetaminophen 325 1 tab PO BID PRN 30 Days #30 tab 03/23/21 03/26/21 Unknown Rx mg tablet citalopram 40 mg PO DAILY 03/26/21 03/26/21 03/25/21 History Allergies Allergy/AdvReac Type Severity Reaction Status Date / Time Iodinated Contrast Media Allergy Severe ALGY-Difficulty Verified 03/23/21 10:15 Breathing iodine Allergy Severe ALGY-Difficulty Verified 03/23/21 10:15 Breathing metoclopramide [From Reglan] Allergy Severe ALGY-Difficulty Verified 03/23/21 10:15 Breathing nalbuphine [From Nubain] Allergy Severe ADR-Diarrhe Verified 03/23/21 10:15 a naproxen [From Naprosyn] Allergy Severe ADR-Vomitin Verified 03/23/21 10:15 g Sulfa (Sulfonamide Allergy Severe ALGY-Difficulty Verified 03/23/21 10:15 Antibiotics) Breathing ketorolac Allergy Intermediate ADR-Nausea Verified 03/23/21 10:15 ondansetron [From Zofran] Allergy Intermediate ADR-Abdominal Verified 03/23/21 10:15 Pain prochlorperazine Allergy Intermediate ADR-Irritab Verified 03/23/21 10:15 [From Compazine] le codeine AdvReac Severe ALGY-Anaphy Verified 03/23/21 10:15 laxis haloperidol [From Haldol] AdvReac Intermediate ADR-Irritab Verified 03/23/21 10:15 le PFSH Acute PFSH: Medical History Anemia Atherosclerotic heart disease of [place] coronary artery with other forms of angina pectoris hx of CAD with prior stenting of proximal LAD, LCx, RCA Chronic kidney disease -baseline Cr appears to be around 1.5 Chronic systolic heart failure EF=47%, diffuse LV hypokinesis, mildly increased LA size Depression Diabetes A1c-7.6 (08/2019) Foot drop, left GERD (gastroesophageal reflux disease) H/O acute myocardial infarction H/O deep venous thrombosis developed compartment syndrome Hyperlipidemia Hypertension Hypothyroidism Ischemic cardiomyopathy Osteoarthritis of spine Psychiatric care Surgical History H/O colonoscopy (11/14/20) 08/2015 H/O esophagogastroduodenoscopy (11/14/20) 08/2015 H/O removal of testicle left H/O skin graft H/O vasectomy History of appendectomy 1995 History of coronary artery stent placement 5x History of excision of mass 06/08/2019: Subcutaneous mass on back History of inguinal hernia repair, bilateral 1999 History of removal of Port-a-Cath Hx of cholecystectomy Port-A-Cath in place Family History Grandfather Cancer skin cancer Parkinson disease Brother Hypertension Father Heart disease Mother Hypertension Stroke Aneurysm Grandmother Aneurysm Other Crohn disease Denies family history of Anesthesia complication Bleeding disorder Social History Second hand smoke exposure: No Alcohol intake: former Former alcohol use details: Only holidays Lives independently: Yes Household members: significant other Marital status: Single Current occupational status: disabled History of recent travel: No Vitals/I&O/Wt Last Vital Signs Temp 97.7 F 03/26/21 15:22 Pulse 87 03/26/21 15:22 Resp 20 H 03/26/21 15:22 BP 148/86 03/26/21 15:22 Pulse Ox 94 03/26/21 15:22 03/26/21 03/26/21 03/26/21 06:59 14:59 22:59 Intake Total 50 / 50 Balance 50 / 50 Weight last 48 hrs Weight 113.398 kg Physical Exam Const: COMMON NORMALS: no acute distress and patient oriented x3 GENERAL APPEARANCE: cooperative and comfortable Eye: COMMON NORMALS: Equal, round and reactive pupils present and EOMs intact bilaterally GENERAL EYE: appearance normal, both eyes and all related structures PUPIL: Yes Equal, round and reactive pupils present Neck/C-Spine: COMMON NORMALS: full ROM and no lymphadenopathy THYROID: Thyroid normal Lymph: LYMPHATIC: no lymphadenopathy noted Resp: COMMON NORMALS: normal respiratory effort, No retractions, No use of accessory muscles and clear to auscultation bilaterally AUSCULTATION: crackles Cardio: COMMON NORMALS: regular rate, regular rhythm, S1 normal heart sound present, S2 normal heart sound present, No gallops present (Cardio), No clicks present (Cardio) and No murmurs present (Cardio) RATE: regular rate RHYTHM: regular rhythm HEART SOUNDS: S1 normal heart sound present and S2 normal heart sound present GI: COMMON NORMALS: Normal to inspection, nondistended, normoactive bowel sounds present, Soft to palpation, non-tender and No hepatosplenomegaly present INSPECTION: Yes Abdominal wall edema and Yes abdominal distension OTHER: Anasarca Extremity: COMMON NORMALS: normal to inspection and full ROM NARRATIVE EXTREMITY EXAM: Bilateral 2+ edema Neuro: COMMON NORMALS: patient oriented x3, CN's II-XII intact bilaterally, moves all extremities and no focal motor deficits Psych: COMMON NORMALS: mental status grossly normal, Normal thought process present and cooperative THOUGHT PROCESS: Normal thought process present Data : 03/26/21 13:07 03/26/21 13:07 A&P Assessment and plan (1) Acute respiratory failure with hypoxia: -Secondary to acute on chronic systolic CHF exacerbation -With some component related to pneumonia Plan: -We will admit to general medical floors -CT chest, pro-Babatunde, CRP, influenza, rapid Covid, Covid PCR -Blood cultures, sputum cultures, urine bacterial antigens -Continue Rocephin and azithromycin -BiPAP schedule during the night -Has received 40 mg of Lasix in the ER, continue Bumex 2 mg IV twice daily, will consider adding metolazone tomorrow morning based on creatinine urine output -Fluid restrictions 1200 cc -Monitor respiratory status -Duo nebs as needed -Given history of travel, but advised of compliance with Eliquis therapy, will order bilateral extremity ultrasounds, D-dimer creatinine 1.7, will consider ordering ventilation/perfusion scan -Full code -Eliquis, low-dose, given creatinine for DVT prophylaxis Pneumonia, as above Systolic CHF as above CKD, baseline creatinine is 2-2.1 Hypokalemia replaced in the emergency room CAD aspirin, Plavix, Eliquis Status: Acute (2) Acute exacerbation of CHF (congestive heart failure): Status: Acute (3) Pneumonia: Status: Acute (4) Chronic anticoagulation: Status: Chronic (5) Chronic kidney disease: Status: Chronic Qualifiers: Chronic kidney disease stage: stage 3 (moderate) Chronic kidney disease stage 3 subtype: stage 3b (GFR 30-44) Qualified Code(s): N18.32 - Chronic kidney disease, stage 3b (6) GERD (gastroesophageal reflux disease): Status: Acute (7) Obesity (BMI 30-39.9): Status: Acute (8) Major depressive disorder, recurrent severe without psychotic features: Status: Acute (9) DVT (deep venous thrombosis): Status: Acute Qualifiers: DVT location: upper extremity Affected thrombotic vein of extremity: other upper extremity vein Chronicity: acute Laterality: left Qualified Code(s): I82.622 - Acute embolism and thrombosis of deep veins of left upper extremity (10) Chronic systolic heart failure: Status: Chronic (11) Anemia: Status: Chronic (12) Atherosclerotic heart disease of [place] coronary artery with other forms of angina pectoris: Status: Chronic (13) Diabetes: Status: Chronic Attestations Medical Necessity Statement*: Patient course hospitalization for acute respiratory failure secondary to CHF exacerbation, pneumonia Coding Level of Care Code Acute Joint Cutter for [facility] Diagnoses Acute respiratory failure with hypoxia J96.01 Acute exacerbation of CHF (congestive heart failure) I50.9 Pneumonia J18.9 Chronic anticoagulation Z79.01 Chronic kidney disease N18.32 Chronic kidney disease stage: stage 3 (moderate) Chronic kidney disease stage 3 subtype: stage 3b (GFR 30-44) GERD (gastroesophageal reflux disease) K21.9 Obesity (BMI 30-39.9) E66.9 Major depressive disorder, recurrent severe without psychotic features F33.2 DVT (deep venous thrombosis) I82.622 DVT location: upper extremity Affected thrombotic vein of extremity: other upper extremity vein Chronicity: acute Laterality: left Chronic systolic heart failure I50.22 Anemia D64.9 Atherosclerotic heart disease of [place] coronary 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 Diabetes E11.9
--- NOTE | 2021-03-26 15:34 | USR_ITS ---
PROCEDURE INFORMATION: Exam: US Duplex Lower Extremity Veins, Bilateral Exam date and time: 03/26/2021 3:34 PM Age: 50 years old Clinical indication: Bilateral lower extremity edema. Shortness of breath. TECHNIQUE: Imaging protocol: Real-time duplex ultrasound of the extremities with 2-D blanco scale, color Doppler flow and spectral waveform analysis with image documentation. Complete exam focused on the bilateral lower extremity veins. COMPARISON: US scrotum [id number] 01/08/2021 6:39 PM FINDINGS: The right common femoral, femoral, popliteal and posterior tibial veins are patent. The left common femoral, femoral and popliteal veins are patent. There is DVT in the left posterior tibial vein. US/[place] [id number] IMPRESSION: DVT in the left posterior tibial vein. Radiation Dose CTDIVOL = (mGy): DLP = (mGy-cm)
[2021-03-26] MEDS: potassium chloride ER 20 mEq Tablet 40 MEQ PO (15:42)
[2021-03-26] MEDS: lidocaine 1% 5 ML in potassium chloride premix 100 ML 50 ML IV (15:42)
--- NOTE | 2021-03-26 16:03 | PC.NURSE ---
patient taken to CT
[2021-03-26 16:29] LABS: Chol HDL Ratio 3.57 mg/dL (1.0-5.00); Cholesterol 164 mg/dL (0-200); HDL Cholesterol 46 mg/dL (60-100); LDL Cholesterol Calculated 97 mg/dL (50-129); LDL HDL Ratio 2.11 RATIO (0.00-3.22); Thyroid Stimulating Hormone 1.22 uIU/mL (0.27-4.20); Triglycerides 105 mg/dL (0-150)
[2021-03-26 16:32] LABS: Estmated Average Glucose 197; Hemoglobin A1C 8.5 % (4.0-6.0)
[2021-03-26 17:13] LABS: Glucose Point of Care 238 mg/dL (70-110)
[2021-03-26] MEDS: isosorbide mononitrate ER 30 mg Tablet PO (17:22)
[2021-03-26] MEDS: apixaban 5 mg Tablet 2.5 MG PO (17:22)
[2021-03-26] MEDS: metoprolol tartrate 50 mg Tablet PO (17:22)
[2021-03-26] MEDS: ranolazine (12HR) 500 mg Tablet PO (17:23)
[2021-03-26] MEDS: insulin lispro 100 unit/1 mL SUBCUT ×2 (17:23→20:17)
[2021-03-26] MEDS: bumetanide 0.25 mg/mL SDV 10 mL 2 MG IVP (17:24)
--- NOTE | 2021-03-26 18:19 | ECG_ITS ---
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 Measurements Intervals [place] Rate: 77 P: 0 MS: 182 QRS: -8 QRSD: 102 T: 67 QT: 406 QTc: 461 Interpretive Statements SINUS RHYTHM ANTERIOR MYOCARDIAL INFARCTION , PROBABLY OLD [40+ ms Q WAVE AND/OR ST/T ABNORMALITY IN V3/V4] Compared to ECG 03/26/2021 14:32:04 No significant changes Electronically Signed On 03-26-2021 21:58:20 MANAGER WEB APPLICATION by Garrison Mckinney M.D. [id number]
[2021-03-26] MEDS: heparin 5,000 unit/mL INJ 1 mL IV (18:42)
[2021-03-26] MEDS: heparin drip 25,000 UNIT/500 ML PREMIX 31.75 UNIT IV (18:46)
[2021-03-26 19:04] LABS: Troponin 5 6HR 39.34 ng/L (0-15); Troponin 5 6HR Delta 3.34 ng/L (0-12)
[2021-03-26] MEDS: gabapentin 300 mg Capsule 600 MG PO (20:15)
[2021-03-26] MEDS: insulin glargine 100 units/1 mL 15 UNIT SUBCUT (20:15)
[2021-03-26 20:23] LABS: Glucose Point of Care 313 mg/dL (70-110)
--- NOTE | 2021-03-26 20:38 | ECG_ITS ---
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 Measurements Intervals [place] Rate: 70 P: 14 MT: 182 QRS: -11 QRSD: 104 T: 57 QT: 414 QTc: 449 Interpretive Statements SINUS RHYTHM POSSIBLE ANTERIOR MYOCARDIAL INFARCTION , OF INDETERMINATE AGE [30 ms Q WAVE IN V3/V4, OR R < 0.2 mV IN V4] Compared to ECG 03/26/2021 20:53:35 No significant changes Electronically Signed On 03-27-2021 16:45:29 AIRLINE ATTENDANT by Garrison Mckinney M.D. [id number]
[2021-03-26] MEDS: nitroglycerin 0.4 mg sublingual Tablet SUBLINGUAL (20:45)
[2021-03-26] MEDS: morphine 4 mg/mL SDV 1 mL 2 MG IVP (20:45)
[2021-03-26] MEDS: trazodone 100 mg Tablet 300 MG PO (23:23)
[2021-03-27] VITALS (8 sets, daily range): BP systolic 132–158; BP diastolic 72–81; PULSE 68–73; RESP 16–18; TEMP 36.7–36.8; O2SAT 87–95
[2021-03-27] MEDS: morphine 4 mg/mL SDV 1 mL 2 MG IVP ×2 (01:50→06:19)
[2021-03-27 02:15] LABS: Partial Thromboplastin Time 209.7 SECONDS (23.9-36.7)
--- NOTE | 2021-03-27 03:04 | PC.NURSE ---
At approx 2029 the patient reported chest pain that radiated into L arm and neck, he also c/o of heaviness on his chest, vitals signs were obtained BP 147/85 HR 79 R 20 O2 95% on 2L NC, pt was A&O at this time, an order for an EKG was put in at this time and the patient was given a nitro and 2mg of morphine, Dr. Osborne came to the floor while the EKG was being done, after reviewing the EKG and asking if the patient was on aspirin, he gave no new orders at that time, the patient did not have to be given anymore nitro.
--- NOTE | 2021-03-27 03:12 | PC.NURSE ---
At 021 the lab called and reported a critical PTT of 209.7, the patient was currently on a heparin drip, this nurse called Dr. Osborne at 021 and got orders to stop drip for 4hrs.
[2021-03-27 05:03] LABS: Basophils % 0.2 %; Hematocrit 33.6 % (42.0-52.0); Hemoglobin 10.8 g/dL (11.7-16.6); Lymphocytes # 1.1 10^3/uL (0.8-4.8); Lymphocytes % 8.7 %; Mean Corpuscular HGB Conc 32.1 g/dL (30.0-36.0); Mean Corpuscular Hemoglobin 28.6 pg (28.0-34.0); Mean Corpuscular Volume 88.9 fl (80-94); Mean Platelet Volume 9.6 fL (7.4-10.4); Monocytes # 0.6 10^3/uL (0.2-0.9); Monocytes % 4.5 %; Neutrophils # 10.99 10^3/uL (1.8-7.7); Nucleated Red Blood Cells % 0 %; Platelet Count 270 10^3/cmm (130-400); Red Blood Count 3.78 10^6/uL (4.1-5.3); Red Cell Distribution Width 14.7 % (12.1-15.1); White Blood Count 12.8 10^3/uL (4.0-10.0)
[2021-03-27 05:30] LABS: Alanine Aminotransferase 8 U/L (0-41); Albumin Level 3.1 g/dL (3.5-5.2); Alkaline Phosphatase 110 IU/L (40-130); Anion Gap 14.9 (5-19); Aspartate Amino Transferase 9 U/L (0-40); Blood Urea Nitrogen 48 mg/dL (6-20); Calcium 8.1 mg/dL (8.5-10.5); Carbon Dioxide 24 mmol/L (22-29); Chloride 101 mmol/L (98-107); Glomerular Filtration Rate 33.3 mL/min (90-130); Glucose 194 mg/dL (65-115); NT Pro B Type Natriuretic Pept 3373 pg/mL (0-125); Osmolality Calculated 298 mOsm/kg (285-295); Phosphorus 3.1 mg/dL (2.5-4.5); Potassium 4.9 mmol/L (3.5-5.1); Sodium 135 mmol/L (136-145); Total Bilirubin 0.5 mg/dL (0.15-1.2); Total Protein 6.1 g/dL (6.6-8.7)
[2021-03-27] MEDS: atorvastatin 40 mg Tablet PO (05:50)
[2021-03-27] MEDS: aspirin 81 mg EC Tablet PO (05:50)
[2021-03-27] MEDS: bumetanide 0.25 mg/mL SDV 10 mL 2 MG IVP (05:50)
[2021-03-27] MEDS: metoprolol tartrate 50 mg Tablet PO (05:51)
[2021-03-27] MEDS: levothyroxine 88 mcg Tablet PO (05:51)
[2021-03-27] MEDS: potassium chloride ER 20 mEq Tablet PO (05:51)
[2021-03-27] MEDS: isosorbide mononitrate ER 30 mg Tablet PO (05:51)
[2021-03-27 06:46] LABS: Glucose Point of Care 208 mg/dL (70-110)
[2021-03-27] MEDS: gabapentin 300 mg Capsule 600 MG PO (08:35)
[2021-03-27] MEDS: pantoprazole DR 40 mg Tablet PO (08:36)
[2021-03-27] MEDS: ranolazine (12HR) 500 mg Tablet PO (08:36)
[2021-03-27] MEDS: amlodipine 5 mg Tablet 10 MG PO (08:37)
[2021-03-27] MEDS: insulin lispro 100 unit/1 mL SUBCUT ×2 (08:38→13:25)
[2021-03-27] MEDS: citalopram 20 mg Tablet 40 MG PO (08:38)
--- NOTE | 2021-03-27 09:16 | PC.CHAP ---
Pastoral Care Encounter/Spiritual Assessment Type of Contact [] Declined tube dispatcher visit [] Patient/Family/Request visit [] Outpatient visit [] Follow-up visit [] Physician referral [] Code/Alert [x] Routine visit [] Staff referral [] Actively dying [] Patient sleeping [] Family support [] [] Out of room [] Palliative care [] [] Receiving care in room [] Pre-surgical visit [] Trauma [] Long length of stay [] ICU visit [] Other: Relational/Emotional Strength [] Patient feels connected with others/family/visitors/staff [] Distress [] Loneliness/isolation [] Abandonment Spirituality of Patient [] Person of Shannon [] Attends Rastafarian of their [place] [] Believes in Prayer [] Reads Bible or Denominational materials [] There are Spiritual issues to be addressed Ready Mix Truck Driver Interventions [x] Prayer [] Active listening [] Non-anxious presence [] Spiritual/emotional support [] Crisis/trauma care [] Spiritual counseling [] Bereavement support [] Provided bereavement packet [] Provided Bible/devotional materials [] Provided toy/stuffed animal, coloring book to patient or family member [] Provided Communion [] Anointing/[place] [] Salvation [] Completed spiritual assessment [] Other: Impact on Illness or Injury [] Angry [] Fearful [] Anxious [] Often cries [] Exhaustion [] Unable to work [] Unable to attend cheondoism [] Unable to walk/stand [] Unable to read [] Unable to drive [] Unable to eat/drink [] Unable to sleep [] Unable to be with family [] Patient intubated [] Other: Summary Time spent with patient
[2021-03-27] MEDS: HYDROcodone-acetaminophen 5-325 mg Tablet 1 TAB PO (10:37)
[2021-03-27] MEDS: apixaban 5 mg Tablet 10 MG PO (10:39)
--- NOTE | 2021-03-27 11:21 | P.DS_ITS ---
Discharge Providers Date of Admission: 03/26/21 13:53 Date of Discharge: March 27, 2021 Attending Provider at Admission: Jaydon Juarez MD Attending Provider at Discharge: Andrew Gonzalez Primary Care Provider: Kp Montanez DO Diagnoses at Discharge Discharge Diagnosis (1) Acute respiratory failure with hypoxia: Status: Acute (2) Acute exacerbation of CHF (congestive heart failure): Status: Acute (3) Pneumonia: Status: Acute (4) Chronic anticoagulation: Status: Chronic Permanent problem details: Eliquis (5) Chronic kidney disease: Status: Chronic Permanent problem details: -baseline Cr appears to be around 1.5 Qualifiers: Chronic kidney disease stage: stage 3 (moderate) Chronic kidney disease stage 3 subtype: stage 3b (GFR 30-44) Qualified Code(s): N18.32 - Chronic kidney disease, stage 3b (6) GERD (gastroesophageal reflux disease): Status: Acute (7) Obesity (BMI 30-39.9): Status: Acute (8) Major depressive disorder, recurrent severe without psychotic features: Status: Acute (9) DVT (deep venous thrombosis): Status: Acute Permanent problem details: Proximal left subclavian, basilic and brachial veins, started eliquis this stay, felt present prior to admission Qualifiers: DVT location: upper extremity Affected thrombotic vein of extremity: other upper extremity vein Chronicity: acute Laterality: left Qualified Code(s): I82.622 - Acute embolism and thrombosis of deep veins of left upper extremity (10) Chronic systolic heart failure: Status: Chronic Permanent problem details: EF=47%, diffuse LV hypokinesis, mildly increased LA size (11) Anemia: Status: Chronic (12) Atherosclerotic heart disease of [place] coronary artery with other forms of angina pectoris: Status: Chronic Permanent problem details: hx of CAD with prior stenting of proximal LAD, LCx, RCA (13) Diabetes: Status: Chronic Permanent problem details: A1c-7.6 (08/2019) Reason for Visit Reason for Visit: SOB; N/V Hospital Course Hospital Course Pleasant 50-year-old gentleman with stage IV kidney disease, CHF, CAD, status post stenting x3, most recently with angiogram at the end of December revealing patent stents, DM 2, GERD, history of DVT with bilateral lower extremity compartment syndrome and PE, atrial fibrillation, recently anticoagulation decreased to 2.5 mg twice daily with Eliquis, presented with shortness of breath, chest tightness, fatigue, malaise, nonproductive cough. He started feeling rather suddenly unwell on Saturday. It appears her symptoms may have been multifactorial, including pneumonia with noted bilateral pneumonia and lower lobes on chest CT, as well as congestive heart failure exacerbation, he is also being tested for COVID-19 by PCR for upper COVID-19 was negative. He does report today that he had an episode of regurgitation overnight on Saturday during which time he was wearing his CPAP. During hospitalization here treated with ceftriaxone and azithromycin. His oxygenation is improved. Not normally wear oxygen. He wears CPAP nightly for PAM. Here currently has been down to 1 L of oxygen and currently even on room air. He reports he is feeling better. Chest tightness is resolved. No suggestion of acute AK and with recent angiogram without intracranial disease, much less likely. Moderate troponin elevation 36-41-39, without peak, in the setting of stage IV kidney disease. Possibly some demand also due to acute respiratory insufficiency. On admission he is also noted to have left lower extremity DVT in left vertebral vein. Eliquis 2.5 mg twice daily was held, he was started on heparin drip. Overnight heparin drip has been held due to elevated PTT. Was resumed earlier this morning. We are stopping this currently and transitioning on discussion with him to 10 mg Eliquis twice daily for DVT dosing. During hospitalization he also diuresed with Bumex 2 mg twice daily IV, currently negative balance with weight loss. Trace if any peripheral edema. Denies orthopnea. He is otherwise doing better, improved somewhat unexpectedly quickly, ambulated with therapy today, feels ready to return home. Has been having some chronic gr oin pain which has been investigated with surgery, and at [facility] with a referral for possible rhizotomy after failed nerve blocks. Physical Exam Const: COMMON NORMALS: no acute distress, patient oriented x3 and alert GENERAL APPEARANCE: cooperative and comfortable ORIENTATION/CONSCIOUSNESS: Yes awake OTHER: Sitting up at the edge of the bed. On room air. HENMT: COMMON NORMALS: oropharynx normal Neck/C-Spine: COMMON NORMALS: no JVD Resp: COMMON NORMALS: normal respiratory effort and clear to auscultation bilaterally EFFORT & INSPECTION: Yes able to speak in complete sentences AUSCULTATION: clear to auscultation bilaterally Cardio: COMMON NORMALS: no JVD, regular rhythm, S1 normal heart sound present, S2 normal heart sound present and No murmurs present (Cardio) RHYTHM: regular rhythm HEART SOUNDS: S1 normal heart sound present and S2 normal heart sound present GI: COMMON NORMALS: Normal to inspection, nondistended, normoactive bowel davina nds present, Soft to palpation and non-tender PALPATION: Yes Soft to palpation Extremity: COMMON NORMALS: no joint enlargement and no pedal edema OTHER: Old fasciotomy scars bilateral legs Neuro: COMMON NORMALS: patient oriented x3 and moves all extremities SENSORIUM/ORIENTATION: Yes alert Skin: COMMON NORMALS: no rashes or lesions noted GENERAL SKIN EXAM: no rashes or lesions noted Discharge Data Data Completed and Pending: Completed Studies During Hospitalization Category Date Time Status CT chest wo con 7 1250 Routine Cat Scan 03/26/21 15:22 Completed XR chest 1V chase ble [id number] Urgent Exams 03/26/21 12:18 [place] [id number] Routin e Ultrasound 03/26/21 15:34 Completed Pending at discharge Category Date Time Status Blood Culture Sta t Lab 03/26/21 17:30 Results Coronavirus Test [facility] ne Lab 03/26/21 13:48 Received Influenza A&B by IFA Routine Lab 03/26/21 15:22 Ordered Magnesium AM LABS Lab 03/28/21 04:00 Ordered Magnesium AM LABS Lab 03/29/21 04:00 Ordered PTT [Partial Thro mboplastin Time] T imed Lab 03/27/21 12:30 Ordered Phosphorus AM LAB S Lab 03/28/21 04:00 Ordered Phosphorus AM LAB S Lab 03/29/21 04:00 Ordered Sputum Culture an d Gram Stain Stat Lab 03/26/21 15:22 Ordered Urine Culture Sta t Lab 03/26/21 16:30 Results Labs from last 24 hours 03/27/21 03/27/21 03/27/21 06:41 04:28 04:28 WBC 12.8 H RBC 3.78 L Hgb 10.8 L Hct 33.6 L MCV 88.9 MCH 28.6 MCHC 32.1 RDW 14.7 Plt Count 270 MPV 9.6 Neut % (Auto) 86.0 Lymph % (Auto) 8.7 [place] % (Auto) 4.5 Eos % (Auto) 0.0 Baso % (Auto) 0.2 Neut # (Auto) 10.99 H Lymph # (Auto) 1.1 [place] # (Auto) 0.6 Eos # (Auto) 0.0 Baso # (Auto) 0.0 Nucleated RBC % (a uto) 0 Nucleated RBCs # 0.0 APTT Sodium 135 L Potassium 4.9 Chloride 101 Carbon Dioxide 24 Anion Gap 14.9 BUN 48 H Creatinine 2.1 H GFR Calculation 33.3 L Glucose 194 H POC Glucose 208 H Estimat Average Gl ucose Hemoglobin A1c Calculated Osmolal ity 298 H Calcium 8.1 L Phosphorus 3.1 Magnesium 2.0 Total Bilirubin 0.5 AST 9 ALT 8 Alkaline Phosphata se 110 Troponin T Baselin e Troponin T 120 Min [place] Troponin T Troponin T Hi Sens 6Hr Troponin T Hi Sens 6Hr Delta NT-Pro-B Natriuret Pep 3373 H Total Protein 6.1 L Albumin 3.1 L Globulin 3.0 Triglycerides Cholesterol LDL Cholesterol, C alc HDL Cholesterol LDL/HDL Ratio Cholesterol/HDL Ra stella Procalcitonin TSH Nasal/Oral COVID-1 9 PCR SARS-CoV-2 Ag (Rap id) 03/27/21 03/26/21 03/26/21 00:55 20:08 18:38 WBC RBC Hgb Hct MCV MCH MCHC RDW Plt Count MPV Neut % (Auto) Lymph % (Auto) [place] % (Auto) Eos % (Auto) Baso % (Auto) Neut # (Auto) Lymph # (Auto) [place] # (Auto) Eos # (Auto) Baso # (Auto) Nucleated RBC % (a uto) Nucleated RBCs # APTT 209.7 H* Sodium Potassium Chloride Carbon Dioxide Anion Gap BUN Creatinine GFR Calculation Glucose POC Glucose 313 H Estimat Average Gl ucose Hemoglobin A1c Calculated Osmolal ity Calcium Phosphorus Magnesium Total Bilirubin AST ALT Alkaline Phosphata se Troponin T Baselin e Troponin T 120 Min [place] Troponin T Troponin T Hi Sens 6Hr 39.34 H Troponin T Hi Sens 6Hr Delta 3.34 NT-Pro-B Natriuret Pep Total Protein Albumin Globulin Triglycerides Cholesterol LDL Cholesterol, C alc HDL Cholesterol LDL/HDL Ratio Cholesterol/HDL Ra stella Procalcitonin TSH Nasal/Oral COVID-1 9 PCR SARS-CoV-2 Ag (Rap id) 03/26/21 03/26/21 03/26/21 17:01 14:55 13:48 WBC RBC Hgb Hct MCV MCH MCHC RDW Plt Count MPV Neut % (Auto) Lymph % (Auto) [place] % (Auto) Eos % (Auto) Baso % (Auto) Neut # (Auto) Lymph # (Auto) [place] # (Auto) Eos # (Auto) Baso # (Auto) Nucleated RBC % (a uto) Nucleated RBCs # APTT Sodium Potassium Chloride Carbon Dioxide Anion Gap BUN Creatinine GFR Calculation Glucose POC Glucose 238 H Estimat Average Gl ucose Hemoglobin A1c Calculated Osmolal ity Calcium Phosphorus Magnesium Total Bilirubin AST ALT Alkaline Phosphata se Troponin T Baselin e Troponin T 120 Min [place] 41.24 H Delta Troponin T 5.24 Troponin T Hi Sens 6Hr Troponin T Hi Sens 6Hr Delta NT-Pro-B Natriuret Pep Total Protein Albumin Globulin Triglycerides Cholesterol LDL Cholesterol, C alc HDL Cholesterol LDL/HDL Ratio Cholesterol/HDL Ra stella Procalcitonin TSH Nasal/Oral COVID-1 9 PCR Pending SARS-CoV-2 Ag (Rap id) 03/26/21 03/26/21 03/26/21 13:48 13:07 13:07 WBC RBC Hgb Hct MCV MCH MCHC RDW Plt Count MPV Neut % (Auto) Lymph % (Auto) [place] % (Auto) Eos % (Auto) Baso % (Auto) Neut # (Auto) Lymph # (Auto) [place] # (Auto) Eos # (Auto) Baso # (Auto) Nucleated RBC % (a uto) Nucleated RBCs # APTT Sodium Potassium Chloride Carbon Dioxide Anion Gap BUN Creatinine GFR Calculation Glucose POC Glucose Estimat Average Gl ucose Hemoglobin A1c Calculated Osmolal ity Calcium Phosphorus Magnesium Total Bilirubin AST ALT Alkaline Phosphata se Troponin T Baselin e Troponin T 120 Min [place] Troponin T Troponin T Hi Sens 6Hr Troponin T Hi Sens 6Hr [place] NT-Pro-B Natriuret Pep Total Protein Albumin Globulin Triglycerides 105 Cholesterol 164 LDL Cholesterol, C alc 97 HDL Cholesterol 46 L LDL/HDL Ratio 2.11 Cholesterol/HDL Ra stella 3.57 Procalcitonin 0.10 TSH 1.22 Nasal/Oral COVID-1 9 PCR SARS-CoV-2 Ag (Rap id) Negative 03/26/21 03/26/21 03/26/21 13:07 13:07 13:07 WBC RBC Hgb Hct MCV MCH MCHC RDW Plt Count MPV Neut % (Auto) Lymph % (Auto) [place] % (Auto) Eos % (Auto) Baso % (Auto) Neut # (Auto) Lymph # (Auto) [place] # (Auto) Eos # (Auto) Baso # (Auto) Nucleated RBC % (a uto) Nucleated RBCs # APTT Sodium 139 Potassium 3.3 L Chloride 108 H Carbon Dioxide 22 Anion Gap 12.3 BUN 37 H Creatinine 1.7 H GFR Calculation 42.5 L Glucose 153 H POC Glucose Estimat Average Gl ucose 197 Hemoglobin A1c 8.5 H Calculated Osmolal ity 300 H Calcium 6.0 L Phosphorus Magnesium Total Bilirubin AST ALT Alkaline Phosphata se Troponin T Baselin e 36 H Troponin T 120 Min [place] Troponin T Troponin T Hi Sens 6Hr Troponin T Hi Sens 6Hr [place] NT-Pro-B Natriuret Pep 1847 H Total Protein Albumin Globulin Triglycerides Cholesterol LDL Cholesterol, C alc HDL Cholesterol LDL/HDL Ratio Cholesterol/HDL Ra stella Procalcitonin TSH Nasal/Oral COVID-1 9 PCR SARS-CoV-2 Ag (Rap id) 03/26/21 13:07 WBC 13.7 H RBC 3.59 L Hgb 10.5 L Hct 31.4 L MCV 87.5 MCH 29.2 MCHC 33.4 RDW 14.5 Plt Count 256 MPV 9.3 Neut % (Auto) 85.3 Lymph % (Auto) 7.6 [place] % (Auto) 5.6 Eos % (Auto) 0.6 Baso % (Auto) 0.4 Neut # (Auto) 11.65 H Lymph # (Auto) 1.0 [place] # (Auto) 0.8 Eos # (Auto) 0.1 Baso # (Auto) 0.1 Nucleated RBC % (a uto) 0 Nucleated RBCs # 0.0 APTT Sodium Potassium Chloride Carbon Dioxide Anion Gap BUN Creatinine GFR Calculation Glucose POC Glucose Estimat Average Gl ucose Hemoglobin A1c Calculated Osmolal ity Calcium Phosphorus Magnesium Total Bilirubin AST ALT Alkaline Phosphata se Troponin T Baselin e Troponin T 120 Min [place] Troponin T Troponin T Hi Sens 6Hr Troponin T Hi Sens 6Hr [place] NT-Pro-B Natriuret Pep Total Protein Albumin Globulin Triglycerides Cholesterol LDL Cholesterol, C alc HDL Cholesterol LDL/HDL Ratio Cholesterol/HDL Ra stella Procalcitonin TSH Nasal/Oral COVID-1 9 PCR SARS-CoV-2 Ag (Rap id) Vitals: Last Vital Signs Temp 98.0 F 03/27/21 07:13 Pulse 70 03/27/21 08:46 Resp 17 03/27/21 08:46 BP 133/81 03/27/21 07:13 Pulse Ox 91 03/27/21 08:46 Discharge Plan Discharge Patient Disposition: Home Health Service Condition: Stable Prescriptions: New Eliquis 5 mg tablet 5 mg PO Q12H Qty: 60 RF: 0 cefdinir 300 mg capsule 300 mg PO BID 5 Days Qty: 10 RF: 0 azithromycin 250 mg tablet 250 mg PO DAILY 5 Days Qty: 5 RF: 0 Continued multivitamin [Daily Multi-Vitamin] Tablet 1 tab PO QPM RF: 0 metoprolol tartrate 50 mg tablet 50 mg PO BID@0600,1800 RF: 0 Trulicity 0.75 mg/0.5 mL pen injector 0.75 mg SUBCUT Q7D RF: 0 aspirin 81 mg tablet,delayed release (DR/EC) 81 mg PO DAILY@0600 RF: 0 promethazine 25 mg tablet 25 mg PO Q6H PRN (Reason: Pain) RF: 0 hydrocodone-acetaminophen 5-325 mg tablet 1 tab PO BID PRN (Reason: pain) 30 Days Qty: 30 RF: 0 gabapentin 600 mg tablet 600 mg PO TID Qty: 90 RF: 0 nitroglycerin [Nitrostat] 0.4 mg tablet, sublingual 0.4 mg SUBLINGUAL Q5M PRN (Reason: Chest Pain) Qty: 25 RF: 2 hydroxyzine HCl 50 mg tablet 50 mg PO QID PRN (Reason: anxiety) Qty: 120 RF: 2 insulin lispro [Humalog U-100 Insulin] 100 unit/mL solution See Rx Instructions .ROUTE .COMPLEX RF: 0 citalopram 40 mg tablet 40 mg PO DAILY RF: 0 cyclobenzaprine 10 mg tablet 10 mg PO TID PRN (Reason: MUSCLE SPASMS) RF: 0 isosorbide mononitrate 30 mg tablet extended release 24 hr 30 mg PO BID@0600,1800 RF: 0 atorvastatin 40 mg tablet 40 mg PO QAM RF: 0 ranolazine 500 mg tablet extended release 12 hr 500 mg PO BID RF: 0 levothyroxine 88 mcg tablet 88 mcg PO QAM RF: 0 Tresiba FlexTouch U-200 200 unit/mL (3 mL) insulin pen 22 unit SUBCUT BEDTIME RF: 0 potassium chloride [Klor-Con M20] 20 mEq tablet,ER particles/crystals 20 meq PO QAM RF: 0 trazodone 100 mg tablet 300 mg PO BEDTIME PRN (Reason: insomnia) RF: 0 amlodipine 5 mg Tablet 10 mg PO DAILY RF: 0 bumetanide 2 mg tablet 2 mg PO BID RF: 0 Discontinued apixaban 2.5 mg tablet 2.5 mg PO Q12H Qty: 60 RF: 6 Discharge Orders: Discharge Order (Routine); Ordered 03/27/21 Ordered By: Andrew Gonzalez Referrals: Antolin Weiss MD [Referring] - (As per appointment) Kp Montanez DO [Primary Care Provider] - 4-7 days Discharge Activity: Increase activity as tolerated, Use walker/crutches as instructed and As per PT/OT instructions Patient Instructions: Azithromycin (By mouth), Cefdinir (By mouth), Apixaban (By mouth) (Eliquis), Deep Vein Thrombosis (GEN), Opioid Safety Activity Restrictions/Additional Instructions: Please take Eliquis 10 mg twice a day for 7 days, then starting next Saturday morning, decrease dose to 5 mg twice a day. Please discuss with your primary doctor in case you start noticing worsening swelling in your left leg, or develop other symptoms of post phlebitis syndrome as discussed. In case you feel faint, lightheaded, or to faint, have worsening chest pain, shortness of breath, low oxygen, or other concerning symptoms, call 911 immediately. Please be aware that Eliquis is a blood thinner medication and increases your risk of bleeding. Please avoid injury at any cost. If you experience bleeding or dark black stools, please hold any further medication and seek medical attention. If you are feeling nauseated or feel like you might vomit, please do not wear your CPAP. Please avoid any food or drink for at least 2 hours before going to sleep. If you experience heartburn, please discuss with your primary doctor. In case of persistent symptoms he may benefit from assessment by endoscopic evaluation to exclude more dangerous causes. Please note your A1c has been checked on 03/26 and is 8.5. Please discuss with your primary doctor. The lab requested by your kidney doctor is included in the lab work drawn from this morning is confirmed by acute care doctors office. Please follow-up with them. Please note your COVID-19 PCR test is not yet finally resulted. Please follow- up with your primary doctor. You may be notified of the result after you leave the hospital. Discharge Attestations Time Spent in Discharge Care*: greater than 30 min Status at Discharge: Cognitive status at discharge: cognitively intact , Behavioral status at discharge: cooperative and independent in ADL's , Quality Metrics Clinical Quality Measures During this hospital stay, did patient experience: None Coding Level of Care Code Acute Chg FW DC note Diagnoses Acute respiratory failure with hypoxia J96.01 Acute exacerbation of CHF (congestive heart failure) I50.9 Pneumonia J18.9 Chronic anticoagulation Z79.01 Chronic kidney disease N18.32 Chronic kidney disease stage: stage 3 (moderate) Chronic kidney disease stage 3 subtype: stage 3b (GFR 30-44) GERD (gastroesophageal reflux disease) K21.9 Obesity (BMI 30-39.9) E66.9 Major depressive disorder, recurrent severe without psychotic features F33.2 DVT (deep venous thrombosis) I82.622 DVT location: upper extremity Affected thrombotic vein of extremity: other upper extremity vein Chronicity: acute Laterality: left Chronic systolic heart failure I50.22 Anemia D64.9 Atherosclerotic heart disease of [place] coronary 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 Diabetes E11.9
[2021-03-27 12:03] LABS: Glucose Point of Care 343 mg/dL (70-110)
[2021-03-27 13:35] LABS: Coronavirus Test Green County Not Detected
[2021-03-27 14:03] LABS: Partial Thromboplastin Time 120.2 SECONDS (23.9-36.7)
--- NOTE | 2021-03-27 14:37 | PC.NURSE ---
Discharge instructions given to patient. Patient understands discharge. Patient is waiting for ride at this time.
--- NOTE | 2021-03-27 15:29 | PC.NURSE ---
Patient was wheeled down to [facility] by nurse in wheel chair.
== END 2021-03-27 15:35 | disposition home health service (06) | DRG 291 ==
LOC: ER 14:09 → MEDSURG 03-27 07:58
PROVIDERS: Internal Medicine; Admitting Provider Family Medicine; Emergency Provider Emergency Medicine; PCP Internal Medicine; Visit Provider Internal Medicine
DX: I13.0 Hypertensive heart and chronic kidney disease with heart failure and stage 1 through stage 4 chronic kidney disease, or unspecified chronic kidney disease (principal); I50.23 Acute on chronic systolic (congestive) heart failure; J96.01 Acute respiratory failure with hypoxia; J18.9 Pneumonia, unspecified organism; F33.9 Major depressive disorder, recurrent, unspecified; I82.442 Acute embolism and thrombosis of left tibial vein; Z68.41 Body mass index [BMI] 40.0-44.9, adult; N18.32 Chronic kidney disease, stage 3b; E11.22 Type 2 diabetes mellitus with diabetic chronic kidney disease; I25.10 Atherosclerotic heart disease of native coronary artery without angina pectoris; Z95.1 Presence of aortocoronary bypass graft; Z95.5 Presence of coronary angioplasty implant and graft; D63.1 Anemia in chronic kidney disease; M21.372 Foot drop, left foot; K21.9 Gastro-esophageal reflux disease without esophagitis; I25.2 Old myocardial infarction; E78.5 Hyperlipidemia, unspecified; I25.5 Ischemic cardiomyopathy; M47.9 Spondylosis, unspecified; Z79.891 Long term (current) use of opiate analgesic; Z79.4 Long term (current) use of insulin; Z79.82 Long term (current) use of aspirin; G89.29 Other chronic pain; R10.30 Lower abdominal pain, unspecified; Z99.89 Dependence on other enabling machines and devices; G47.33 Obstructive sleep apnea (adult) (pediatric); Z86.711 Personal history of pulmonary embolism; E66.9 Obesity, unspecified; E87.6 Hypokalemia
CPT/HCPCS: 36416; 36591; 71045; 71250; 80048; 80053; 80061; 82962; 83036; 83735; 83880; 84100; 84145; 84443; 84484; 85025; 85730; 86403; 87040; 87086; 87426; 87635; 93005; 93970; 94664; 96365; 96366; 96367; 96372; 96375; 97110; 97162; 97165; 99214; 99285; J0696; J1644; J1815 ×2; J2270; J2550; J3480; J3490; Q0144; Q0164

== ENCOUNTER 2021-03-29 15:40 | Emergency (ER) | payer MEDICARE, MEDICAID, SELFPAY ==
--- NOTE | 2021-03-29 15:56 | CTR_ITS ---
PROCEDURE INFORMATION: Exam: CT Head Without Contrast Exam date and time: 03/29/2021 3:56 PM Age: 50 years old Clinical indication: Injury or trauma; Fall; Blunt trauma (contusions or hematomas); Additional info: Fall/trauma TECHNIQUE: Imaging protocol: Computed tomography of the head without contrast. Radiation optimization: All CT scans at this facility use at least one of these dose optimization techniques: automated exposure control; mA and/or kV adjustment per patient size (includes targeted exams where dose is matched to clinical indication); or iterative reconstruction. COMPARISON: CT head wo con* [id number] 02/09/2021 4:43 PM RADIATION DOSE METRICS: Total DLP (mGy-cm): 1131.32 FINDINGS: Brain: Normal. No hemorrhage. Unremarkable white matter. No mass effect. Cerebral ventricles: No ventriculomegaly. Paranasal sinuses: Visualized sinuses are unremarkable. No fluid levels. Mastoid air cells: Visualized mastoid air cells are well aerated. Bones/joints: Unremarkable. No acute fracture. Soft tissues: Unremarkable. CT/CT head wo con* [id number] IMPRESSION: No acute intracranial abnormality. Radiation Dose CTDIVOL = (mGy): DLP = 1131.32 (mGy-cm)
--- NOTE | 2021-03-29 15:56 | CTR_ITS ---
PROCEDURE INFORMATION: Exam: CT Cervical Spine Without Contrast Exam date and time: 03/29/2021 3:56 PM Age: 50 years old Clinical indication: Injury or trauma; Fall; Blunt trauma; Additional info: Fall/trauma TECHNIQUE: Imaging protocol: Computed tomography images of the cervical spine without contrast. Radiation optimization: All CT scans at this facility use at least one of these dose optimization techniques: automated exposure control; mA and/or kV adjustment per patient size (includes targeted exams where dose is matched to clinical indication); or iterative reconstruction. COMPARISON: CT head wo con* [id number] 03/29/2021 4:46 PM RADIATION DOSE METRICS: Total DLP (mGy-cm): 953.89 FINDINGS: Bones/joints: No fracture is identified. Discs/Spinal canal/Neural foramina: No significant disc protrusion. No severe spinal canal stenosis. No significant neural foraminal narrowing. Lungs: Lung apices are normal. Soft tissues: The prevertebral soft tissues are unremarkable. Other findings: There is severe narrowing of the C5-C6 disc space with small anterior and posterior osteophytes. CT/CT cervical spin wo con* [id number] IMPRESSION: Degenerative changes. No fracture is identified. Radiation Dose CTDIVOL = (mGy): DLP = 953.89 (mGy-cm)
[2021-03-29 16:12] VITALS: BP 130/65; PULSE 75; RESP 18; TEMP 36.9; O2SAT 92; BMI 40.8
[2021-03-29 16:24] VITALS: BP 130/65; PULSE 74; RESP 18; TEMP 36.9; O2SAT 92
--- NOTE | 2021-03-29 16:24 | ED_ITS ---
HPI - Fall General: Chief Complaint: Fall Stated Complaint: FALL Time Seen by Provider: 03/29/21 15:52 History of Present Illness: HPI Narrative: 50-year-old male presents emergency room he tripped and fell while he was outside walking to his car he hit his head on the car there is a brief loss of consciousness reported by his . He is complaining of a headache on the left side of his head and is also complains of neck pain he is on Eliquis for DVTs. He denies any other injuries no chest pain no shortness of breath. Fall was mechanical in nature. MD complaint: fall Onset (ago): minute(s) Fall from: standing Fall witnessed: no Place fall occurred: home Loss of consciousness: None Prolonged down time: no Symptoms prior to fall: none Context: tripped/slipped Location of injury: head and neck Severity: mild Associated symptoms-after fall: Reports neck pain; Denies abdominal pain, chest pain, confusion, difficulty walking, headache(s), hematuria, lightheadedness, numbness, short of breath, vertigo or weakness Review of Systems Const: Denies: fever(s), chills, body aches, change in appetite, fatigue or malaise ENMT: Denies: throat pain, ear or mastoid pain, nasal discharge or nasal congestion Card: Denies: chest pain or lightheadedness Resp: Denies: dyspnea, productive cough or non-productive cough GI: Denies: abdominal pain : Denies: hematuria Musc: Reports: neck pain Skin/Breast: Denies: rash or pruritus Neuro: Denies: headache(s), difficulty walking, vertigo or confusion PFS ED PFSH: Medical History Acute exacerbation of CHF (congestive heart failure) Anemia Atherosclerotic heart disease of [place] coronary artery with other forms of angina pectoris hx of CAD with prior stenting of proximal LAD, LCx, RCA Chronic anticoagulation Eliquis Chronic kidney disease -baseline Cr appears to be around 1.5 Chronic systolic heart failure EF=47%, diffuse LV hypokinesis, mildly increased LA size Depression Diabetes A1c-7.6 (08/2019) Foot drop, left GERD (gastroesophageal reflux disease) H/O acute myocardial infarction H/O deep venous thrombosis developed compartment syndrome Hyperlipidemia Hypertension Hypothyroidism Ischemic cardiomyopathy Major depressive disorder, recurrent severe without psychotic features Obesity (BMI 30-39.9) Osteoarthritis of spine Psychiatric care Recent weight gain Surgical History H/O colonoscopy (11/14/20) 08/2015 H/O esophagogastroduodenoscopy (11/14/20) 08/2015 H/O removal of testicle left H/O skin graft H/O vasectomy History of appendectomy 1995 History of coronary artery stent placement 5x History of excision of mass 06/08/2019: Subcutaneous mass on back History of inguinal hernia repair, bilateral 1999 History of removal of Port-a-Cath Hx of cholecystectomy Port-A-Cath in place Family History Grandfather Cancer skin cancer Parkinson disease Brother Hypertension Father Heart disease Mother Hypertension Stroke Aneurysm Grandmother Aneurysm Other Crohn disease Denies family history of Anesthesia complication Bleeding disorder Social History Second hand smoke exposure: No Alcohol intake: former Former alcohol use details: Only holidays Lives independently: Yes Household members: significant other Marital status: Single Current occupational status: disabled History of recent travel: No Physical Exam Const: COMMON NORMALS: no acute distress GENERAL APPEARANCE: cooperative and comfortable ORIENTATION/CONSCIOUSNESS: Yes awake, Yes oriented to person, Yes oriented to place and Yes oriented to time HENMT: COMMON NORMALS: normocephalic, atraumatic and hearing grossly normal bilaterally HEAD & SCALP: normocephalic and atraumatic Neck/C-Spine: COMMON NORMALS: no JVD Resp: COMMON NORMALS: normal respiratory effort, No retractions, No use of accessory muscles and clear to auscultation bilaterally AUSCULTATION: clear to auscultation bilaterally Cardio: COMMON NORMALS: no JVD, regular rate, regular rhythm and No murmurs present (Cardio) RATE: regular rate RHYTHM: regular rhythm GI: COMMON NORMALS: Soft to palpation and No hepatosplenomegaly present AUSCULTATION: Yes normoactive bowel sounds PALPATION: Yes Soft to palpation, No Tenderness to palpation present (GI), No Guarding due to palpation present (GI) and Yes No hepatosplenomegaly present Extremity: COMMON NORMALS: normal to inspection, capillary refill normal, no clubbing, cyanosis or edema, no calf tenderness and no pedal edema Neuro: SENSORIUM/ORIENTATION: Yes oriented to person, Yes oriented to place and Yes oriented to time Skin: COMMON NORMALS: no rashes or lesions noted GENERAL SKIN EXAM: no rashes or lesions noted Course Vital Signs: Vital signs: Vital Signs Temperature 97.9 F 03/29/21 17:26 Pulse Rate 76 03/29/21 17:26 Respiratory Rate 18 03/29/21 17:26 Blood Pressure 149/69 03/29/21 17:26 Pulse Oximetry 93 03/29/21 17:26 MDM - Fall MDM Narrative: Medical decision making narrative: Imaging reviewed. No significant findings discussed with patient will discharge home follow-up as needed Discharge Plan Discharge Patient Disposition: Home Clinical Impression: Fall, Closed head injury Condition: Stable Prescriptions: No Action multivitamin [Daily Multi-Vitamin] Tablet 1 tab PO QPM RF: 0 metoprolol tartrate 50 mg tablet 50 mg PO BID@0600,1800 RF: 0 Trulicity 0.75 mg/0.5 mL pen injector 0.75 mg SUBCUT Q7D RF: 0 aspirin 81 mg tablet,delayed release (DR/EC) 81 mg PO DAILY@0600 RF: 0 promethazine 25 mg tablet 25 mg PO Q6H PRN (Reason: Pain) RF: 0 hydrocodone-acetaminophen 5-325 mg tablet 1 tab PO BID PRN (Reason: pain) 30 Days Qty: 30 RF: 0 gabapentin 600 mg tablet 600 mg PO TID Qty: 90 RF: 0 nitroglycerin [Nitrostat] 0.4 mg tablet, sublingual 0.4 mg SUBLINGUAL Q5M PRN (Reason: Chest Pain) Qty: 25 RF: 2 hydroxyzine HCl 50 mg tablet 50 mg PO QID PRN (Reason: anxiety) Qty: 120 RF: 2 insulin lispro [Humalog U-100 Insulin] 100 unit/mL solution See Rx Instructions .ROUTE .COMPLEX RF: 0 citalopram 40 mg tablet 40 mg PO DAILY RF: 0 Eliquis 5 mg tablet 5 mg PO Q12H Qty: 60 RF: 0 cefdinir 300 mg capsule 300 mg PO BID 5 Days Qty: 10 RF: 0 azithromycin 250 mg tablet 250 mg PO DAILY 5 Days Qty: 5 RF: 0 cyclobenzaprine 10 mg tablet 10 mg PO TID PRN (Reason: MUSCLE SPASMS) RF: 0 isosorbide mononitrate 30 mg tablet extended release 24 hr 30 mg PO BID@0600,1800 RF: 0 atorvastatin 40 mg tablet 40 mg PO QAM RF: 0 ranolazine 500 mg tablet extended release 12 hr 500 mg PO BID RF: 0 levothyroxine 88 mcg tablet 88 mcg PO QAM RF: 0 Tresiba FlexTouch U-200 200 unit/mL (3 mL) insulin pen 22 unit SUBCUT BEDTIME RF: 0 potassium chloride [Klor-Con M20] 20 mEq tablet,ER particles/crystals 20 meq PO QAM RF: 0 trazodone 100 mg tablet 300 mg PO BEDTIME PRN (Reason: insomnia) RF: 0 amlodipine 5 mg Tablet 10 mg PO DAILY RF: 0 bumetanide 2 mg tablet 2 mg PO BID RF: 0 Discharge Orders: Discharge ED (Routine); Ordered 03/29/21 Ordered By: Timo Mckoy Referrals: Kp Montanez DO [Primary Care Provider] - Discharge Diet: Usual diet Discharge Activity: Resume usual activity Patient Instructions: Opioid Safety Coding Level of Care Code ED 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
[2021-03-29 17:26] VITALS: BP 149/69; PULSE 76; RESP 18; TEMP 36.6; O2SAT 93
== END 2021-03-29 17:28 | disposition home or self-care (01) ==
PROVIDERS: Emergency Provider Family Medicine; PCP Internal Medicine
DX: S09.90XA Unspecified injury of head, initial encounter (principal); W01.0XXA Fall on same level from slipping, tripping and stumbling without subsequent striking against object, initial encounter
CPT/HCPCS: 70450; 72125; 99282

== ENCOUNTER → 2021-03-30 12:58 | Outpatient (BNVA) | payer MEDICARE, MEDICAID, SELFPAY | PROVIDERS: PCP Internal Medicine; Visit Provider Anesthesiology Pain Medicine | DX: Z01.812 Encounter for preprocedural laboratory examination (principal); E11.22 Type 2 diabetes mellitus with diabetic chronic kidney disease; M53.3 Sacrococcygeal disorders, not elsewhere classified; M54.16 Radiculopathy, lumbar region; Z79.891 Long term (current) use of opiate analgesic; N18.9 Chronic kidney disease, unspecified; Z79.4 Long term (current) use of insulin | CPT/HCPCS: 36416; 82962; G0260; J1030; J3490 ==

== ENCOUNTER 2021-04-12 14:46 | Inpatient (IN) | payer MEDICARE, MEDICAID, SELFPAY ==
[2021-04-12] VITALS (8 sets, daily range): BP systolic 125–155; BP diastolic 38–87; PULSE 65–71; RESP 14–19; TEMP 36.6–37; O2SAT 94–99; BMI 42.7
--- NOTE | 2021-04-12 14:50 | CTR_ITS ---
PROCEDURE INFORMATION: Exam: CT Cervical Spine Without Contrast Exam date and time: 04/12/2021 2:50 PM Age: 50 years old Clinical indication: Injury or trauma; Fall; Blunt trauma; Injury date: 2 weeks ago; Patient HX: AMS, slumping over, fell two weeks ago; Additional info: Falls TECHNIQUE: Imaging protocol: Computed tomography images of the cervical spine without contrast. Radiation optimization: All CT scans at this facility use at least one of these dose optimization techniques: automated exposure control; mA and/or kV adjustment per patient size (includes targeted exams where dose is matched to clinical indication); or iterative reconstruction. COMPARISON: CT cervical spin wo con* [id number] 03/29/2021 4:49 PM RADIATION DOSE METRICS: Total DLP (mGy-cm): 989.56 FINDINGS: Bones/joints: No acute fracture. Normal alignment. Discs/Spinal canal/Neural foramina: No significant disc protrusion. No severe spinal canal stenosis. No significant neural foraminal narrowing. Lungs: Lung apices are normal. Soft tissues: Unremarkable. CT/CT cervical spin wo con* [id number] IMPRESSION: No acute findings. Radiation Dose CTDIVOL = (mGy): DLP = 989.56 (mGy-cm)
--- NOTE | 2021-04-12 14:50 | CTR_ITS ---
PROCEDURE INFORMATION: Exam: CT Head Without Contrast Exam date and time: 04/12/2021 2:50 PM Age: 50 years old Clinical indication: Injury or trauma; Fall; Blunt trauma (contusions or hematomas); Consciousness not specified; Injury date: 2 weeks ago; Patient HX: AMS, slumping over, fell two weeks ago; Additional info: Falls TECHNIQUE: Imaging protocol: Computed tomography of the head without contrast. Radiation optimization: All CT scans at this facility use at least one of these dose optimization techniques: automated exposure control; mA and/or kV adjustment per patient size (includes targeted exams where dose is matched to clinical indication); or iterative reconstruction. COMPARISON: CT head wo con* [id number] 03/29/2021 4:46 PM RADIATION DOSE METRICS: Total DLP (mGy-cm): 1018.58 FINDINGS: Brain: Normal. No hemorrhage. Unremarkable white matter. No mass effect. Cerebral ventricles: No ventriculomegaly. Paranasal sinuses: Visualized sinuses are unremarkable. No fluid levels. Mastoid air cells: Visualized mastoid air cells are well aerated. Bones/joints: Unremarkable. No acute fracture. Soft tissues: Unremarkable. CT/CT head wo con* [id number] IMPRESSION: No acute intracranial abnormality. Radiation Dose CTDIVOL = (mGy): DLP = 1018.58 (mGy-cm)
--- NOTE | 2021-04-12 16:45 | W.ED.GENADLT ---
HPI - General Adult General: Chief complaint: Altered Mental Status Stated complaint: FREQUENT FALLS Time Seen by Provider: 04/12/21 14:53 History of Present Illness: HPI narrative: Patient is a 50-year-old male with a history of CKD, CAD s/p stent x5 presented to the emergency room for complaint of shortness of fatigue, altered mental status, and weight gain. Patient's tells me that he has had 6 pounds weight gain despite taking his bumetanide daily. In addition, patient feels short of breath and tired throughout the day. He is unable to really move because of the swelling and the fatigue. Patient has no sweating chest pain, lightheadedness, nausea/vomiting, diarrhea, abdominal complaints, melena/hematochezia. Patient's , patient is in the process of waiting for dialysis. However he has not yet to hear back from any of the surgeon. Patient is able to urinate without difficulty. No urinary complaints at this time. Onset: chronic Duration:ongoing Location: home Severity: moderate Review of Systems Narrative: Constitutional: No fever, no chills. HEENT: No vision changes CV: No chest pain, no palpitations PULM: no cough, no dyspnea. GI: No abdominal pain, no N/V/D. +abdominal distension : No dysuria MSKEL: No muscle pain, +LE swelling b/l SKIN: No new rashes, no lesions. NEURO: No headache, no focal weakness. HEME: No visible bruises PSYCH: Normal mood PFSH ED PFSH: Medical History Acute exacerbation of CHF (congestive heart failure) Anemia Atherosclerotic heart disease of [place] coronary artery with other forms of angina pectoris hx of CAD with prior stenting of proximal LAD, LCx, RCA Chronic anticoagulation Eliquis Chronic kidney disease -baseline Cr appears to be around 1.5 Chronic systolic heart failure EF=47%, diffuse LV hypokinesis, mildly increased LA size Depression Diabetes A1c-7.6 (08/2019) Foot drop, left GERD (gastroesophageal reflux disease) H/O acute myocardial infarction H/O deep venous thrombosis developed compartment syndrome Hyperlipidemia Hypertension Hypothyroidism Ischemic cardiomyopathy Major depressive disorder, recurrent severe without psychotic features Obesity (BMI 30-39.9) Osteoarthritis of spine Psychiatric care Recent weight gain Surgical History H/O colonoscopy (11/14/20) 08/2015 H/O esophagogastroduodenoscopy (11/14/20) 08/2015 H/O removal of testicle left H/O skin graft H/O vasectomy History of appendectomy 1995 History of coronary artery stent placement 5x History of excision of mass 06/08/2019: Subcutaneous mass on back History of inguinal hernia repair, bilateral 1999 History of removal of Port-a-Cath Hx of cholecystectomy Port-A-Cath in place Family History Grandfather Cancer skin cancer Parkinson disease Brother Hypertension Father Heart disease Mother Hypertension Stroke Aneurysm Grandmother Aneurysm Other Crohn disease Denies family history of Anesthesia complication Bleeding disorder Social History Second hand smoke exposure: No Alcohol intake: former Former alcohol use details: Only holidays Lives independently: Yes Household members: significant other Marital status: Single Current occupational status: disabled History of recent travel: No Physical Exam Narrative: EXAM NARRATIVE: Head: Atraumatic Eyes: PERRL, conjunctiva without injection ENT: Mucous membrane moist NECK: Supple, ROM intact LUNGS: +decreased breath sounds and crackles throuhgout lung saldaña CV: RRR ABDOMEN: Soft, +diffuse abdominal distension, no focal TTP. NO guarding rebound, guarding, rigidity. No CVA tenderness to percussion. Neg [place]/Neg McBurney's point tenderness, no suprabupic tenderness to palpation. EXTREMITY: Normal ROM, 3+ LE edema SKIN: No rash or erythema NEURO: Awake and alert x3, intermittently confused, somnolent and occasionally answering answers PSYCH: Normal mood and affect Course Vital Signs: Vital signs: Vital Signs Temperature 97.8 F 04/12/21 17:25 Pulse Rate 70 04/12/21 17:25 Respiratory Rate 18 04/12/21 17:25 Blood Pressure 155/86 04/12/21 17:25 Pulse Oximetry 97 04/12/21 17:25 MDM - General Adult MDM Narrative: Medical decision making narrative: Patient is a 50-year-old male presented to emergency room with worsening volume overload, altered mental status despite taking his bumetanide daily. On exam, patient has signs of volume overload pulmonary edema. Workup today with volume overload. Dr. Villarreal consulted from telenephrology. S/p lasix 80mg, morphine, zofran. Disposition: Admission for volume removal and dialysis catheter placement Lab Data: Labs: Lab Results 04/12/21 04/12/21 04/12/21 16:30 16:43 16:43 WBC 8.9 10^3/uL 10^3/ uL (4.0-10.0) RBC 4.11 10^6/uL 10^6 /uL (4.1-5.3) Hgb 12.1 g/dL g/dL (11.7-16.6) Hct 37.2 % L % (42.0-52.0) MCV 90.5 fl fl (80-94) MCH 29.4 pg pg (28.0-34.0) MCHC 32.5 g/dL g/dL (30.0-36.0) RDW 15.8 % H % (12.1-15.1) Plt Count 324 10^3/cmm 10^3 /cmm (130-400) MPV 9.2 fL fL (7.4-10.4) Neut % (Auto) 69.8 % % Lymph % (Auto) 18.6 % % Richardson % (Auto) 7.5 % % Eos % (Auto) 2.5 % % Baso % (Auto) 1.0 % % Neut # (Auto) 6.23 10^3/uL 10^3 /uL (1.8-7.7) Lymph # (Auto) 1.7 10^3/uL 10^3/ uL (0.8-4.8) Richardson # (Auto) 0.7 10^3/uL 10^3/ uL (0.2-0.9) Eos # (Auto) 0.2 10^3/uL 10^3/ uL (0.0-0.8) Baso # (Auto) 0.1 10^3/uL 10^3/ uL (0.0-0.1) Nucleated RBC % (a uto) 0 % % Nucleated RBCs # 0.0 /100WBC /100W BC PT 15.00 SECONDS H S ECONDS (12.1-14.9) INR 1.15 (0.8-1.2) APTT 32.0 SECONDS SECO NDS (23.9-36.7) Sodium Potassium Chloride Carbon Dioxide Anion Gap BUN Creatinine GFR Calculation Glucose Calculated Osmolal ity Calcium Total Bilirubin AST ALT Alkaline Phosphata se Ammonia Troponin T Baselin e NT-Pro-B Natriuret Pep Total Protein Albumin Globulin Lipase TSH Urine Color Yellow (Yellow) Urine Appearance Clear (CLEAR) Urine pH 5 (5-7) Ur Specific Gravit y 1.010 (1.005-1.030) Urine Protein 2+ H (Negative) Urine Glucose (UA) 1+ H (Normal) Urine Ketones Negative (Negative) Urine Blood Neg (Negative) Urine Nitrate Negative (Negative) Urine Bilirubin Neg (Negative) Urine Urobilinogen Norm mg/dL mg/dL (Negative) Ur Leukocyte Carmen ase Negative (Negative) Urine RBC 0-4 /hpf H /hpf (0-2) Urine WBC None /hpf /hpf (0-5) Ur Squamous Epith Cells None /hpf /hpf (0-5) Amorphous Sediment Not Reportable Urine Bacteria None /hpf /hpf (NONE) 04/12/21 04/12/21 04/12/21 16:43 16:43 16:43 WBC RBC Hgb Hct MCV MCH MCHC RDW Plt Count MPV Neut % (Auto) Lymph % (Auto) Richardson % (Auto) Eos % (Auto) Baso % (Auto) Neut # (Auto) Lymph # (Auto) Richardson # (Auto) Eos # (Auto) Baso # (Auto) Nucleated RBC % (a uto) Nucleated RBCs # PT INR APTT Sodium 138 mmol/L mmol/L (136-145) Potassium 4.0 mmol/L mmol/L (3.5-5.1) Chloride 99 mmol/L mmol/L (98-107) Carbon Dioxide 28 mmol/L mmol/L (22-29) Anion Gap 15.0 (5-19) BUN 38 mg/dL H mg/dL (6-20) Creatinine 2.5 mg/dL H mg/dL (0.7-1.2) GFR Calculation 27.3 mL/min L mL/ min (90-130) Glucose 140 mg/dL H mg/dL (65-115) Calculated Osmolal ity 297 mOsm/kg H mOs m/kg (285-295) Calcium 9.3 mg/dL mg/dL (8.5-10.5) Total Bilirubin 0.3 mg/dL mg/dL (0.15-1.2) AST 13 U/L U/L (0-40) ALT 17 U/L U/L (0-41) Alkaline Phosphata se 128 IU/L IU/L (40-130) Ammonia 32 umol/L umol/L (16-60) Troponin T Baselin e 41 ng/L H ng/L (0-15) NT-Pro-B Natriuret Pep 2195 pg/mL H pg/m L (0-125) Total Protein 6.1 g/dL L g/dL (6.6-8.7) Albumin 3.7 g/dL g/dL (3.5-5.2) Globulin 2.4 g/dL g/dL (1.3-4.6) Lipase 33 U/L U/L (13-60) TSH 3.20 uIU/mL uIU/m L (0.27-4.20) Urine Color Urine Appearance Urine pH Ur Specific Gravit y Urine Protein Urine Glucose (UA) Urine Ketones Urine Blood Urine Nitrate Urine Bilirubin Urine Urobilinogen Ur Leukocyte Carmen ase Urine RBC Urine WBC Ur Squamous Epith Cells Amorphous Sediment Urine Bacteria Imaging Data^: Other Imaging: Radiologist's impression: Rei Queen II (c) 50 M 1970 [address] [id number] Scan ReportSigned Patient: Rei Queen Darrel IIUnit #: [id number]: 1970Acct#:[id number]/Sex: 50 / MADM Date: 04/12/21Loc: ERRoom/Bed:Attending Dr: Ordering Provider/Ordering MD: Van Barry MD Date of Service: 04/12/21 Procedure(s): CT head wo con* [id number] Accession Number(s): [id number] Report Number: [id number] PROCEDURE INFORMATION: Exam: CT Head Without Contrast Exam date and time: 04/12/2021 2:50 PM Age: 50 years old Clinical indication: Injury or trauma; Fall; Blunt trauma (contusions or hematomas); Consciousness not specified; Injury date: 2 weeks ago; Patient HX: AMS, slumping over, fell two weeks ago; Additional info: Falls TECHNIQUE: Imaging protocol: Computed tomography of the head without contrast. Radiation optimization: All CT scans at this facility use at least one of these dose optimization techniques: automated exposure control; mA and/or kV adjustment per patient size (includes targeted exams where dose is matched to clinical indication); or iterative reconstruction. COMPARISON: CT head wo con* [id number] 03/29/2021 4:46 PM RADIATION DOSE METRICS: Total DLP (mGy-cm): 1018.58 FINDINGS: Brain: Normal. No hemorrhage. Unremarkable white matter. No mass effect. Cerebral ventricles: No ventriculomegaly. Paranasal sinuses: Visualized sinuses are unremarkable. No fluid levels. Mastoid air cells: Visualized mastoid air cells are well aerated. Bones/joints: Unremarkable. No acute fracture. Soft tissues: Unremarkable. CT/CT head wo con* [id number] IMPRESSION: No acute intracranial abnormality. Radiation Dose CTDIVOL = (mGy): DLP = 1018.58 (mGy-cm) Dictated By:Morgan Gil DOSigned By:Morgan Gil DOSigned Date/Time:04/12/21 1653DD/ 1450 Discharge Plan Discharge Patient Disposition: Admitted As Inpatient Clinical Impression: Volume overload, Altered mental status, Kidney failure Condition: Stable Coding Level of Care Code ED Sex Crimes Detective for Aaron Irene
[2021-04-12 16:56] LABS: Base Excess VBG 4.7 mmol/L (-3.0-3.0); Blood Gas Operator Identificat AMH; Blood Gas Sample Site Not specified; Blood Gas Sample Type Venous; HCO3 VBG 31.5 mmol/L (24-28); Oxygen Device ROOM AIR; PCO2 VBG 55.7 mmHg (41-51); PO2 VBG 36.9 mmHg (25-40); Venous Blood Gas Hematocrit 38.5 % (42-52); pH VBG 7.36 (7.32-7.42)
[2021-04-12 17:07] LABS: Basophils # 0.1 10^3/uL (0.0-0.1); Eosinophils # 0.2 10^3/uL (0.0-0.8); Eosinophils % 2.5 %; Hematocrit 37.2 % (42.0-52.0); Hemoglobin 12.1 g/dL (11.7-16.6); Lymphocytes # 1.7 10^3/uL (0.8-4.8); Lymphocytes % 18.6 %; Mean Corpuscular HGB Conc 32.5 g/dL (30.0-36.0); Mean Corpuscular Hemoglobin 29.4 pg (28.0-34.0); Mean Corpuscular Volume 90.5 fl (80-94); Mean Platelet Volume 9.2 fL (7.4-10.4); Monocytes # 0.7 10^3/uL (0.2-0.9); Monocytes % 7.5 %; Neutrophils # 6.23 10^3/uL (1.8-7.7); Neutrophils % 69.8 %; Nucleated Red Blood Cells % 0 %; Platelet Count 324 10^3/cmm (130-400); Red Blood Count 4.11 10^6/uL (4.1-5.3); Red Cell Distribution Width 15.8 % (12.1-15.1); White Blood Count 8.9 10^3/uL (4.0-10.0)
--- NOTE | 2021-04-12 17:14 | ECG_ITS ---
[facility] Test Date: 2021-04-12 Pat Name: Rei Queen Department: Room: Gender: Male Community Integration Specialist: : 1970 Requested By: Jose Macias Order Number: [id number] [id number] MD: Garrison Mckinney M.D. Measurements Intervals [place] Rate: 69 P: 16 TX: 180 QRS: 19 QRSD: 106 T: 48 QT: 419 QTc: 451 Interpretive Statements SINUS RHYTHM POSSIBLE ANTERIOR MYOCARDIAL INFARCTION , OF INDETERMINATE AGE [30 ms Q WAVE IN V3/V4, OR R < 0.2 mV IN V4] Compared to ECG 03/27/2021 05:36:05 No significant changes Electronically Signed On 04-12-2021 17:42:58 NAIL TECH by Garrison Mckinney M.D. [id number]
[2021-04-12 17:15] LABS: Add Urine Microscopic? YES; Bilirubin Urine Neg (Negative); Blood Urine Neg (Negative); Glucose Urine UA 1+ (Normal); Ketones Urine Negative (Negative); Leukocyte Esterase Urine Negative (Negative); Nitrate Urine Negative (Negative); Protein Urine 2+ (Negative); Urine Appearance Clear (CLEAR); Urine Color Yellow (Yellow); Urobilinogen Urine Norm (Negative); pH Urine 5 (5-7)
[2021-04-12 17:21] LABS: INR 1.15 (0.8-1.2)
[2021-04-12 17:38] LABS: Ammonia 32 umol/L (16-60)
[2021-04-12 17:41] LABS: Troponin(5th) Baseline 41 ng/L (0-15)
[2021-04-12 17:50] LABS: Alanine Aminotransferase 17 U/L (0-41); Albumin Level 3.7 g/dL (3.5-5.2); Alkaline Phosphatase 128 IU/L (40-130); Aspartate Amino Transferase 13 U/L (0-40); Blood Urea Nitrogen 38 mg/dL (6-20); Calcium 9.3 mg/dL (8.5-10.5); Carbon Dioxide 28 mmol/L (22-29); Chloride 99 mmol/L (98-107); Globulin 2.4 g/dL (1.3-4.6); Glomerular Filtration Rate 27.3 mL/min (90-130); Glucose 140 mg/dL (65-115); Lipase 33 U/L (13-60); NT Pro B Type Natriuretic Pept 2195 pg/mL (0-125); Osmolality Calculated 297 mOsm/kg (285-295); Sodium 138 mmol/L (136-145); Total Bilirubin 0.3 mg/dL (0.15-1.2); Total Protein 6.1 g/dL (6.6-8.7)
[2021-04-12 18:02] LABS: Add Urine Culture? No; RBC Urine 0-4 /hpf (0-2)
--- NOTE | 2021-04-12 18:23 | XRR_ITS ---
PROCEDURE INFORMATION: Exam: XR Chest Exam date and time: 04/12/2021 6:23 PM Age: 50 years old Clinical indication: Shortness of breath; Prior surgery; Surgery date: 6+ months; Surgery type: Open heart, port; Additional info: Volume overload? TECHNIQUE: Imaging protocol: XR of the chest. Views: 1 view. COMPARISON: CT chest wo con [id number] 03/26/2021 4:08 PM FINDINGS: Tubes, catheters and devices: Left chest port terminates at the cavoatrial junction. Lungs: Minor curvilinear scarring at the left lung base. No consolidation. Pleural spaces: Unremarkable. No pleural effusion. No pneumothorax. Heart/Mediastinum: Sequela of prior CABG with sternotomy wires. No cardiomegaly. Bones/joints: Unremarkable. XR/XR chest 1V portable [id number] IMPRESSION: No acute findings. Radiation Dose CTDIVOL = (mGy): DLP = (mGy-cm)
--- NOTE | 2021-04-12 18:34 | P.CONIM_ITS ---
Providers/Reason For Consult Consulting Physician/Specialty*: tomas stinson md / telenephrology Reason for Consult*: JESUS on CKD, severe edema Requesting Physician: Dr. Davey Primary Care Provider: Kp Montanez DO History of Present Illness History of Present Illness Rei Queen II is a 50 year old male h/o htn, hyperlipidemia, DVT, PE, type 2 DM, CKD stage 4- per pt, cr over 2 mg/dl, hypothyroidism, CAD, mild chronic systolic chf w/ EF 40-45%. In 2011 he was admitted to [facility] in [place] with cardiac tamponade and apparently while attempting pericardial tap he went into cardiac arrest. For this reason he had a open pericardiotomy. He also has history of spontaneous bleeding in bilateral lower extremity and subsequently developing compartment syndrome for which he had to undergo below- knee bilateral fasciotomy. Pt states he follows w/ Dr. Weiss for CKD stage 4- h is here now w/ inc lethargy and 7 lb weight gain this week. he states he is urinating, but has severe anasarca and confusion. He saw cardiology who sent him to the ER. Review of Systems General: Reports: 10 or more systems reviewed and unremarkable except in HPI and below Narrative: weak, lethargic, sob, weight gain, swollen, ascites. Meds/Allergies Home Medications and Allergies Home Medications Medication Instructions Recorded Confirmed Last Taken Type aspirin 81 mg tablet,delayed 81 mg PO DAILY@0600 06/01/19 04/12/21 04/12/21 History release dulaglutide 0.75 mg/0.5 mL 0.75 mg SUBCUT Q7D 06/01/19 04/12/21 04/08/21 History subcutaneous pen injector metoprolol tartrate 50 mg tablet 50 mg PO BID@0600,1800 06/01/19 04/12/21 04/12/21 History multivitamin 1 tab PO QPM 06/01/19 04/12/21 04/11/21 History cyclobenzaprine 10 mg PO TID PRN 01/07/20 04/12/21 03/20/21 History isosorbide mononitrate 30 mg PO BID@0600,1800 09/05/20 04/12/21 04/12/21 History insulin lispro [Humalog U-100 See Rx Instructions .ROUTE .COMPLEX 09/25/20 04/12/2103/20/21 History Insulin] nitroglycerin 0.4 mg sublingual 0.4 mg SUBLINGUAL Q5M PRN #25 tab 10/10/20 04/12/21 02/20/21 Rx tablet atorvastatin 40 mg PO QAM 11/04/20 04/12/21 04/12/21 History ranolazine 500 mg PO BID 01/08/21 04/12/21 04/12/21 History Tresiba FlexTouch U-200 22 unit SUBCUT BEDTIME 02/09/21 04/12/21 04/11/21 History amlodipine 10 mg PO DAILY 02/09/21 04/12/21 04/12/21 History levothyroxine 88 mcg PO QAM 02/09/21 04/12/21 04/12/21 History potassium chloride [Klor-Con M20] 20 meq PO QAM 02/09/21 04/12/21 04/12/21 History trazodone 300 mg PO BEDTIME PRN 02/09/21 04/12/21 04/11/21 History bumetanide 2 mg PO BID 02/20/21 04/12/21 04/12/21 History promethazine 25 mg tablet 25 mg PO Q6H PRN 02/22/21 04/12/21 03/20/21 History hydroxyzine HCl 50 mg tablet 50 mg PO QID PRN #120 tab 03/15/21 04/12/21 03/20/21 Rx gabapentin 600 mg tablet 600 mg PO TID #90 tab 03/23/21 04/12/21 04/12/21 Rx hydrocodone 5 mg-acetaminophen 325 1 tab PO BID PRN 30 Days #30 tab 03/23/21 04/12/21 Unknown Rx mg tablet citalopram 40 mg PO DAILY 03/26/21 04/12/21 04/12/21 History apixaban [Eliquis] 5 mg PO Q12H #60 tab 03/27/21 04/12/21 04/12/21 Rx Allergies Allergy/AdvReac Type Severity Reaction Status Date / Time Iodinated Contrast Media Allergy Severe ALGY-Difficulty Verified 04/12/21 13:53 Breathing iodine Allergy Severe ALGY-Difficulty Verified 04/12/21 13:53 Breathing metoclopramide [From Reglan] Allergy Severe ALGY-Difficulty Verified 04/12/21 13:53 Breathing nalbuphine [From Nubain] Allergy Severe ADR-Diarrhe Verified 04/12/21 13:53 a naproxen [From Naprosyn] Allergy Severe ADR-Vomitin Verified 04/12/21 13:53 g Sulfa (Sulfonamide Allergy Severe ALGY-Difficulty Verified 04/12/21 13:53 Antibiotics) Breathing ketorolac Allergy Intermediate ADR-Nausea Verified 04/12/21 13:53 ondansetron [From Zofran] Allergy Intermediate ADR-Abdominal Verified 04/12/21 13:53 Pain prochlorperazine Allergy Intermediate ADR-Irritab Verified 04/12/21 13:53 [From Compazine] le codeine AdvReac Severe ALGY-Anaphy Verified 04/12/21 13:53 laxis haloperidol [From Haldol] AdvReac Intermediate ADR-Irritab Verified 04/12/21 13:53 le PFSH Acute PFSH: Medical History Acute exacerbation of CHF (congestive heart failure) Anemia Atherosclerotic heart disease of [place] coronary artery with other forms of angina pectoris hx of CAD with prior stenting of proximal LAD, LCx, RCA Chronic anticoagulation Eliquis Chronic kidney disease -baseline Cr appears to be around 1.5 Chronic systolic heart failure EF=47%, diffuse LV hypokinesis, mildly increased LA size Depression Diabetes A1c-7.6 (08/2019) Foot drop, left GERD (gastroesophageal reflux disease) H/O acute myocardial infarction H/O deep venous thrombosis developed compartment syndrome Hyperlipidemia Hypertension Hypothyroidism Ischemic cardiomyopathy Major depressive disorder, recurrent severe without psychotic features Obesity (BMI 30-39.9) Osteoarthritis of spine Psychiatric care Recent weight gain Surgical History H/O colonoscopy (11/14/20) 08/2015 H/O esophagogastroduodenoscopy (11/14/20) 08/2015 H/O removal of testicle left H/O skin graft H/O vasectomy History of appendectomy 1995 History of coronary artery stent placement 5x History of excision of mass 06/08/2019: Subcutaneous mass on back History of inguinal hernia repair, bilateral 1999 History of removal of Port-a-Cath Hx of cholecystectomy Port-A-Cath in place Family History Grandfather Cancer skin cancer Parkinson disease Brother Hypertension Father Heart disease Mother Hypertension Stroke Aneurysm Grandmother Aneurysm Other Crohn disease Denies family history of Anesthesia complication Bleeding disorder Social History Second hand smoke exposure: No Alcohol intake: former Former alcohol use details: Only holidays Lives independently: Yes Household members: significant other Marital status: Single Current occupational status: disabled History of recent travel: No Vitals/I&O/Wt Last Vital Signs Temp 97.8 F 04/12/21 17:25 Pulse 69 04/12/21 18:25 Resp 18 04/12/21 18:25 BP 146/69 04/12/21 18:25 Pulse Ox 97 04/12/21 18:25 Weight last 48 hrs Weight 120.202 kg Physical Exam Narrative: EXAM NARRATIVE: anasarca in bed NARD, confused vs noted heent- nc/at, eomi, anicteric neck supple lungs dull bases heart- distant, s1 s2 abd soft, AScites, distended ext 3+ edema neuro- lethargic A&P Additional A&P Information 50 yr old man w/ EF 40-45%, severe anasarca. Pt here w/ leathrgy, weight gain. 1. CKD stage 3+ likely CRS. has had subnephrotic range proteinuria. also concern for DM -check spep/ upep 2. JESUS- mild jump from 2.1 mg/dl to a cr of 2.5 mg/dl. likely progression of underlying renal disease. and /or diuretic effect 3. anasarca- Q if from DVT. however, he is on full dose eliquis. recs- lasix/ bumex drip -renal us -consider paracentesis -venous dopplers -k okay, pH okay. normal na, k, ammonia 41- not certain of cause of lethargy -normal tsh -ur tox -monitor weights, uop, chemistries discussed w/ Dr. Davey Consult Attestations Medical Necessity Statement: anasarca, edema Time Spent in Patient Care: Greater than 35 minutes (>than 50% of time spent in counselling and/or direct pt care on unit) . 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
[2021-04-12 19:10] LABS: Troponin 5 2HR 35.47 ng/L (0-15)
[2021-04-12] MEDS: morphine 4 mg/mL SDV 1 mL 2 MG IVP (19:10)
--- NOTE | 2021-04-12 19:11 | PM.HP ---
Providers/Chief Complaint Primary Care Provider: Kp Montanez DO Chief Complaint: [place] History of Present Illness 50 yo man with PMHx of CAD with h/o multiple stents, HTN, HLD, h/o DVT's, PE , DM-2, CKD stage 4, hypothyroidism, heart failure with reduced infection with EF of around 40-45%, history of bilateral compartment syndrome, status post fasciotomy below-knee bilateral, came in with chief complaint of, worsening shortness of breath, orthopnea , weight gain, lethargy, and confusion. Patient was seen in cardiology clinic as an outpatient today and was sent to the ER from there. Upon arrival in the ER he was worked up for above-mentioned complaint: CT head wo con: No acute intracranial abnormality. X-ray chest: Mild pulmonary vascular congestion, no infiltrates no effusion. Pertinent labs: WBC:8.9, H&H:12/37,PLT : 324, serum sodium 138 serum potassium 4 BUN/ serum creatinine:38/2.5 , random glucose 140, AST ALT alk phos normal ammonia normal, Troponin trend without significant delta, proBNP 2195, urinalysis: clean Patient was given Lasix 80 mg IV one-time dose in the ER, with good urine output. Review of Systems Const: Denies: fever(s) or chills Card: Denies: palpitations Resp: Denies: productive cough, wheezing or pain on inspiration GI: Denies: abdominal pain, diarrhea or constipation : Denies: flank pain or difficulty urinating Musc: Denies: back pain or extremity pain Neuro: Denies: headache(s) or difficulty walking Medications/Allergies Home Medications Medication Instructions Recorded Confirmed Last Taken Type aspirin 81 mg tablet,delayed 81 mg PO DAILY@0600 06/01/19 04/12/21 04/12/21 History release dulaglutide 0.75 mg/0.5 mL 0.75 mg SUBCUT Q7D 06/01/19 04/12/21 04/08/21 History subcutaneous pen injector metoprolol tartrate 50 mg tablet 50 mg PO BID@0600,1800 06/01/19 04/12/21 04/12/21 History multivitamin 1 tab PO QPM 06/01/19 04/12/21 04/11/21 History cyclobenzaprine 10 mg PO TID PRN 01/07/20 04/12/21 03/20/21 History isosorbide mononitrate 30 mg PO BID@0600,1800 09/05/20 04/12/21 04/12/21 History insulin lispro [Humalog U-100 See Rx Instructions .ROUTE .COMPLEX 09/25/20 04/12/21 03/20/21 History Insulin] nitroglycerin 0.4 mg sublingual 0.4 mg SUBLINGUAL Q5M PRN #25 tab 10/10/20 04/12/21 02/20/21 Rx tablet atorvastatin 40 mg PO QAM 11/04/20 04/12/21 04/12/21 History ranolazine 500 mg PO BID 01/08/21 04/12/21 04/12/21 History Tresiba FlexTouch U-200 22 unit SUBCUT BEDTIME 02/09/21 04/12/21 04/11/21 History amlodipine 10 mg PO DAILY 02/09/21 04/12/21 04/12/21 History levothyroxine 88 mcg PO QAM 02/09/21 04/12/21 04/12/21 History potassium chloride [Klor-Con M20] 20 meq PO QAM 02/09/21 04/12/21 04/12/21 History trazodone 300 mg PO BEDTIME PRN 02/09/21 04/12/21 04/11/21 History bumetanide 2 mg PO BID 02/20/21 04/12/21 04/12/21 History promethazine 25 mg tablet 25 mg PO Q6H PRN 02/22/21 04/12/21 03/20/21 History hydroxyzine HCl 50 mg tablet 50 mg PO QID PRN #120 tab 03/15/21 04/12/21 03/20/21 Rx gabapentin 600 mg tablet 600 mg PO TID #90 tab 03/23/21 04/12/21 04/12/21 Rx hydrocodone 5 mg-acetaminophen 325 1 tab PO BID PRN 30 Days #30 tab 03/23/21 04/12/21 Unknown Rx mg tablet citalopram 40 mg PO DAILY 03/26/21 04/12/21 04/12/21 History apixaban [Eliquis] 5 mg PO Q12H #60 tab 03/27/21 04/12/21 04/12/21 Rx Allergies Allergy/AdvReac Type Severity Reaction Status Date / Time Iodinated Contrast Media Allergy Severe ALGY-Difficulty Verified 04/12/21 13:53 Breathing iodine Allergy Severe ALGY-Difficulty Verified 04/12/21 13:53 Breathing metoclopramide [From Reglan] Allergy Severe ALGY-Difficulty Verified 04/12/21 13:53 Breathing nalbuphine [From Nubain] Allergy Severe ADR-Diarrhe Verified 04/12/21 13:53 a naproxen [From Naprosyn] Allergy Severe ADR-Vomitin Verified 04/12/21 13:53 g Sulfa (Sulfonamide Allergy Severe ALGY-Difficulty Verified 04/12/21 13:53 Antibiotics) Breathing ketorolac Allergy Intermediate ADR-Nausea Verified 04/12/21 13:53 ondansetron [From Zofran] Allergy Intermediate ADR-Abdominal Verified 04/12/21 13:53 Pain prochlorperazine Allergy Intermediate ADR-Irritab Verified 04/12/21 13:53 [From Compazine] le codeine AdvReac Severe ALGY-Anaphy Verified 04/12/21 13:53 laxis haloperidol [From Haldol] AdvReac Intermediate ADR-Irritab Verified 04/12/21 13:53 le PFSH Acute PFSH: Medical History Acute exacerbation of CHF (congestive heart failure) Anemia Atherosclerotic heart disease of [place] coronary artery with other forms of angina pectoris hx of CAD with prior stenting of proximal LAD, LCx, RCA Chronic anticoagulation Eliquis Chronic kidney disease -baseline Cr appears to be around 1.5 Chronic systolic heart failure EF=47%, diffuse LV hypokinesis, mildly increased LA size Depression Diabetes A1c-7.6 (08/2019) Foot drop, left GERD (gastroesophageal reflux disease) H/O acute myocardial infarction H/O deep venous thrombosis developed compartment syndrome Hyperlipidemia Hypertension Hypothyroidism Ischemic cardiomyopathy Major depressive disorder, recurrent severe without psychotic features Obesity (BMI 30-39.9) Osteoarthritis of spine Psychiatric care Recent weight gain Surgical History H/O colonoscopy (11/14/20) 08/2015 H/O esophagogastroduodenoscopy (11/14/20) 08/2015 H/O removal of testicle left H/O skin graft H/O vasectomy History of appendectomy 1995 History of coronary artery stent placement 5x History of excision of mass 06/08/2019: Subcutaneous mass on back History of inguinal hernia repair, bilateral 1999 History of removal of Port-a-Cath Hx of cholecystectomy Port-A-Cath in place Family History Grandfather Cancer skin cancer Parkinson disease Brother Hypertension Father Heart disease Mother Hypertension Stroke Aneurysm Grandmother Aneurysm Other Crohn disease Denies family history of Anesthesia complication Bleeding disorder Social History Second hand smoke exposure: No Alcohol intake: former Former alcohol use details: Only holidays Lives independently: Yes Household members: significant other Marital status: Single Current occupational status: disabled History of recent travel: No Vitals/I&O/Wt Last Vital Signs Temp 97.8 F 04/12/21 17:25 Pulse 69 04/12/21 18:25 Resp 19 H 04/12/21 19:10 BP 146/69 04/12/21 18:25 Pulse Ox 97 04/12/21 18:25 Weight last 48 hrs Weight 120.202 kg Physical Exam Const: COMMON NORMALS: patient oriented x3 HENMT: COMMON NORMALS: normocephalic and atraumatic HEAD & SCALP: normocephalic and atraumatic Resp: OTHER: Bilateral diminished air entry Cardio: COMMON NORMALS: regular rate, regular rhythm, S1 normal heart sound present, S2 normal heart sound present, No gallops present (Cardio), No murmurs present (Cardio), No rub (Cardio) and Peripheral pulses 2+ throughout RATE: regular rate RHYTHM: regular rhythm HEART SOUNDS: S1 normal heart sound present and S2 normal heart sound present PERIPHERAL PULSES: Peripheral pulses 2+ throughout GI: COMMON NORMALS: Soft to palpation, non-tender, No hepatosplenomegaly present and no masses AUSCULTATION: Yes normoactive bowel sounds PALPATION: Yes Soft to palpation and Yes No hepatosplenomegaly present RECTAL EXAM: Yes deferred Extremity: NARRATIVE EXTREMITY EXAM: 2+ bilateral pitting edema present Neuro: COMMON NORMALS: patient oriented x3 Data : 04/12/21 16:43 04/12/21 16:43 A&P Assessment and plan (1) Acute kidney injury superimposed on CKD: Status: Acute (2) CHF exacerbation: Status: Acute Qualifiers: Heart failure type: systolic Qualified Code(s): I50.23 - Acute on chronic systolic (congestive) heart failure (3) Anasarca: Status: Acute (4) Hypertension: Status: Acute (5) Diabetes: Status: Acute (6) History of DVT (deep vein thrombosis): Status: Acute (7) History of pulmonary embolism: Status: Acute Additional A&P Information 50 yo man with PMHx of CAD with h/o multiple stents, HTN, HLD, h/o DVT's, PE , DM-2, CKD stage 4, hypothyroidism, heart failure with reduced infection with EF of around 40-45%, history of bilateral compartment syndrome, status post fasciotomy below-knee bilateral, recent coronary angiogram in January 2021 with patent stent and rest nonocclusive coronary artery disease came in with chief complaint of, worsening shortness of breath, orthopnea , weight gain, lethargy, and confusion. #JESUS on worsening CKD stage IV likely secondary to cardiorenal syndrome: Currently on Bumex drip, albumin one-time dose, intake output charting, daily weight, monitor electrolytes. Possibility of going on H/D during this admission. #Decompensated heart failure with preserved ejection fraction: Plan as above #Hypertension: Continue amlodipine, metoprolol #Diabetes:SSI, FSG, carbohydrate consistent #History of DVT and PE: On therapeutic anticoagulation with Lovenox #History of hypothyroidism: Continue levothyroxine #CODE STATUS: Full code Attestations Medical Necessity Statement*: Patient needs to be in hospital for management of above defined problems. Anticipated length of stay greater than 2 midnights. 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
[2021-04-12] MEDS: promethazine 25 mg/mL SDV 1 mL 12.5 MG IM (19:14)
[2021-04-12] MEDS: FUROsemide 10 mg/mL SDV 10mL 80 MG IVP (19:17)
[2021-04-12 19:18] LABS: Troponin 5 2HR Delta -5.53 ABS# (0-10)
[2021-04-12 19:33] LABS: Free T4 Free Thyroxine 1.07 ng/dL (0.82-1.77)
[2021-04-12] MEDS: bumetanide 0.25 mg/mL SDV 4 mL 1 MG IVP (21:31)
[2021-04-12] MEDS: albumin 12.5 GM/50 ML VIAL IV (21:33)
[2021-04-12] MEDS: gabapentin 300 mg Capsule 600 MG PO (22:14)
[2021-04-12] MEDS: bumetanide 25 MG in empty flexible container 1 EACH 8 MG IV (22:18)
[2021-04-13] VITALS (28 sets, daily range): BP systolic 107–184; BP diastolic 68–121; PULSE 65–88; RESP 11–20; TEMP 36.4–36.6; O2SAT 89–98
[2021-04-13 03:37] LABS: Glucose Point of Care 109 mg/dL (70-110)
[2021-04-13 04:07] LABS: Basophils # 0.1 10^3/uL (0.0-0.1); Basophils % 1.2 %; Eosinophils # 0.2 10^3/uL (0.0-0.8); Eosinophils % 2.7 %; Hematocrit 38.2 % (42.0-52.0); Hemoglobin 12.5 g/dL (11.7-16.6); Lymphocytes # 1.8 10^3/uL (0.8-4.8); Lymphocytes % 20.3 %; Mean Corpuscular HGB Conc 32.7 g/dL (30.0-36.0); Mean Corpuscular Hemoglobin 29.4 pg (28.0-34.0); Mean Corpuscular Volume 89.9 fl (80-94); Mean Platelet Volume 9.3 fL (7.4-10.4); Monocytes # 0.7 10^3/uL (0.2-0.9); Monocytes % 8.5 %; Neutrophils # 5.79 10^3/uL (1.8-7.7); Neutrophils % 66.8 %; Nucleated Red Blood Cells % 0 %; Platelet Count 303 10^3/cmm (130-400); Red Blood Count 4.25 10^6/uL (4.1-5.3); Red Cell Distribution Width 15.9 % (12.1-15.1); White Blood Count 8.7 10^3/uL (4.0-10.0)
[2021-04-13 04:42] LABS: Alanine Aminotransferase 16 U/L (0-41); Albumin Level 3.8 g/dL (3.5-5.2); Alkaline Phosphatase 122 IU/L (40-130); Anion Gap 17.7 (5-19); Aspartate Amino Transferase 14 U/L (0-40); Blood Urea Nitrogen 37 mg/dL (6-20); Calcium 8.9 mg/dL (8.5-10.5); Carbon Dioxide 26 mmol/L (22-29); Chloride 102 mmol/L (98-107); Globulin 2.8 g/dL (1.3-4.6); Glucose 95 mg/dL (65-115); Magnesium 1.7 mg/dL (1.7-2.3); Osmolality Calculated 302 mOsm/kg (285-295); Phosphorus 3.5 mg/dL (2.5-4.5); Potassium 3.7 mmol/L (3.5-5.1); Sodium 142 mmol/L (136-145); Total Bilirubin 0.4 mg/dL (0.15-1.2); Total Protein 6.6 g/dL (6.6-8.7)
[2021-04-13] MEDS: atorvastatin 40 mg Tablet PO (06:40)
[2021-04-13] MEDS: levothyroxine 88 mcg Tablet PO (06:40)
[2021-04-13] MEDS: metoprolol tartrate 50 mg Tablet PO ×2 (06:40→17:02)
[2021-04-13] MEDS: isosorbide mononitrate ER 30 mg Tablet PO ×2 (06:40→17:02)
[2021-04-13] MEDS: aspirin 81 mg EC Tablet PO (06:40)
[2021-04-13] MEDS: HYDROcodone-acetaminophen 5-325 mg Tablet 1 TAB PO ×2 (06:45→17:04)
--- NOTE | 2021-04-13 06:50 | PM.PN ---
Subjective Subjective: Interval history: feels better, still anasarca, more awake, less sob, abd and chest and back pain Medications: Reviewed: Yes Medication Review Details: Current Medications Acetaminophen (Acetaminophen 325 Mg Tablet) 650 mg PO Q6H PRN PRN Reason: Mild/Mod Pain Or Temp >/= 101 Hydrocodone Bitart/Acetaminophen (Hydrocodone-Acetaminophen 5-325 Mg Tablet) 1 tab PO BID PRN PRN Reason: pain Last Admin: 04/13/21 06:45 Dose: 1 tab Documented by: Amlodipine Besylate (Amlodipine 5 Mg Tablet) 10 mg PO DAILY [facility] Aspirin (Aspirin 81 Mg Ec Tablet) 81 mg PO DAILY@0600 [facility] Last Admin: 04/13/21 06:40 Dose: 81 mg Documented by: Atorvastatin Calcium (Atorvastatin 40 Mg Tablet) 40 mg PO QAM [facility] Last Admin: 04/13/21 06:40 Dose: 40 mg Documented by: Bisacodyl (Bisacodyl 5 Mg Tablet) 10 mg PO DAILY PRN; Protocol PRN Reason: Constipation (see protocol) Citalopram Hydrobromide (Citalopram 20 Mg Tablet) 40 mg PO DAILY [facility] Cyclobenzaprine HCl (Cyclobenzaprine 10 Mg Tablet) 10 mg PO TID PRN PRN Reason: MUSCLE SPASMS Enoxaparin Sodium (Enoxaparin 100 Mg/Ml Syringe) 120 mg SUBCUT DAILY [facility] Gabapentin (Gabapentin 300 Mg Capsule) 600 mg PO TID [facility] Last Admin: 04/12/21 22:14 Dose: 600 mg Documented by: Bumetanide 25 mg/ N/A 100 mls @ 8 mls/hr IV .[id number] [facility] Last Admin: 04/12/21 22:18 Dose: 2 mg/hr, 8 mls/hr Documented by: Isosorbide Mononitrate (Isosorbide Mononitrate Er 30 Mg Tablet) 30 mg PO BID@0600,1800 [facility] Last Admin: 04/13/21 06:40 Dose: 30 mg Documented by: Levothyroxine Sodium (Levothyroxine 88 Mcg Tablet) 88 mcg PO QAM [facility] Last Admin: 04/13/21 06:40 Dose: 88 mcg Documented by: Metoprolol Tartrate (Metoprolol Tartrate 50 Mg Tablet) 50 mg PO BID@0600,1800 [facility] Last Admin: 04/13/21 06:40 Dose: 50 mg Documented by: Naloxone HCl (Naloxone 0.4 Mg/Ml Sdv) 0.1 mg IVP Q2M PRN PRN Reason: OPIATERV Nitroglycerin (Nitroglycerin 0.4 Mg Sublingual Tablet) 0.4 mg SUBLINGUAL Q5M PRN PRN Reason: Chest Pain Non-Formulary Medication (Hydroxyzine Hcl) 50 mg PO QID PRN PRN Reason: anxiety Non-Formulary Medication (Multivitamin [Daily Multi-Vitamin]) 1 tab PO QPM [facility] Promethazine HCl (Promethazine 25 Mg/Ml Sdv 1 Ml) 12.5 mg IM Q6H PRN PRN Reason: NAUSEA Last Admin: 04/12/21 19:14 Dose: 12.5 mg Documented by: Ranolazine (Ranolazine (12hr) 500 Mg Tablet) 500 mg PO BID [facility] Trazodone HCl (Trazodone 100 Mg Tablet) 300 mg PO BEDTIME PRN PRN Reason: insomnia Vitals/I&O/Wt Last Vital Signs Temp 97.6 F 04/13/21 04:00 Pulse 71 04/13/21 05:00 Resp 20 H 04/13/21 02:47 BP 157/92 04/13/21 05:00 Pulse Ox 97 04/13/21 05:00 04/12/21 04/12/21 04/13/21 14:59 22:59 06:59 Intake Total 50 / 50 Output Total 825 / 825 Balance 50 / 50 -825 / -775 Weight last 48 hrs Weight 120.202 kg Physical Exam Narrative: EXAM NARRATIVE: anasarca in bed NARD, awake and alert vs noted heent- nc/at, eomi, anicteric neck supple lungs dull bases heart- distant, s1 s2 abd soft, ascites, distended ext 3+ edema neuro- a,a, o x 3, moves all 4 extremities Data : 04/13/21 03:43 04/13/21 03:43 A&P Additional A&P Information 50 yr old man w/ EF 40-45%, severe anasarca. Pt here w/ leathrgy, weight gain. 1. CKD stage 3+ likely CRS. has had subnephrotic range proteinuria. also concern for DM -check spep/ upep -check renal us -no emergent need for dialysis 2. JESUS- mild jump from 2.1 mg/dl to a cr of 2.5 mg/dl. likely progression of underlying renal disease and /or diuretic effect -cr is now stable to improved at 2.3 mg/dl 3. chf exacerbation- likely diastolic dysfunction -cont bumex drip -replace k 4. ascites -consider paracentesis -venous dopplers -monitor weights, uop, chemistries discussed w/ pt and RN seen and examine dw/ rN- telehealth visit Attestations Medical Necessity Statement*: chf, ckd, ascites Time Spent in Patient Care: 16 - 35 minutes (>than 50% of time spent in counselling and/or direct pt care on unit). Coding Level of Care Code Acute Mitigation Supervisor for Aaron Irene
--- NOTE | 2021-04-13 07:13 | PC.NURSE ---
The patient arrived into the ICU at 0235 complaining of left sided chest pain and groin pain. The patient's blood pressure was also slightly hypertensive. The patient' is awake, alert and oriented times 4. During the shift the state of the patient was very drowsy, and slept on and off.
[2021-04-13 07:41] LABS: Glucose Point of Care 97 mg/dL (70-110)
[2021-04-13] MEDS: enoxaparin 100 mg/mL Syringe 120 MG SUBCUT (08:02)
[2021-04-13] MEDS: ranolazine (12HR) 500 mg Tablet PO ×2 (08:03→17:02)
[2021-04-13] MEDS: amlodipine 5 mg Tablet 10 MG PO (08:03)
[2021-04-13] MEDS: gabapentin 300 mg Capsule 600 MG PO ×3 (08:03→20:54)
[2021-04-13] MEDS: citalopram 20 mg Tablet 40 MG PO (08:03)
[2021-04-13] MEDS: potassium chloride ER 20 mEq Tablet 40 MEQ PO (08:03)
[2021-04-13] MEDS: metOLazone 5 MG Tablet PO (08:04)
[2021-04-13] MEDS: bumetanide 25 MG in empty flexible container 1 EACH 8 MG IV ×2 (08:04→20:55)
[2021-04-13 08:24] LABS: Uric Acid 10.3 mg/dL (3.4-7.0)
[2021-04-13] MEDS: acetaminophen 325 mg Tablet 650 MG PO (11:31)
[2021-04-13] MEDS: morphine 4 mg/mL SDV 1 mL 2 MG IVP (11:43)
[2021-04-13 11:54] LABS: Glucose Urine UA Trace (Normal); Protein Urine 3+ (Negative); Urine Appearance Clear (CLEAR); Urine Color Straw (Yellow); pH Urine 5 (5-7)
[2021-04-13 11:55] LABS: Bacteria Urine 1+ /hpf; Bilirubin Urine Neg (Negative); Blood Urine Neg (Negative); Ketones Urine Negative (Negative); Leukocyte Esterase Urine Negative (Negative); Nitrate Urine Negative (Negative); RBC Urine 0-4 /hpf (0-2); Squamous Epithelial Cell Urine 0-4 /hpf (0-5); Urobilinogen Urine Norm (Negative); WBC Urine 0-4 /hpf (0-5)
--- NOTE | 2021-04-13 13:03 | P.PN_ITS ---
Subjective Subjective: Interval history: Patient was seen and examined this morning, feels better, shortness of breath is improved, still complaining of lethargy.Good urine output on Bumex drip. BUN and serum creatinine has remained stable. Medications: Reviewed: Yes Medication Review Details: Current Medications Acetaminophen (Acetaminophen 325 Mg Tablet) 650 mg PO Q6H PRN PRN Reason: Mild/Mod Pain Or Temp >/= 101 Hydrocodone Bitart/Acetaminophen (Hydrocodone-Acetaminophen 5-325 Mg Tablet) 1 tab PO BID PRN PRN Reason: pain Last Admin: 04/13/21 06:45 Dose: 1 tab Documented by: Amlodipine Besylate (Amlodipine 5 Mg Tablet) 10 mg PO DAILY [facility] Aspirin (Aspirin 81 Mg Ec Tablet) 81 mg PO DAILY@0600 [facility] Last Admin: 04/13/21 06:40 Dose: 81 mg Documented by: Atorvastatin Calcium (Atorvastatin 40 Mg Tablet) 40 mg PO QAM [facility] Last Admin: 04/13/21 06:40 Dose: 40 mg Documented by: Bisacodyl (Bisacodyl 5 Mg Tablet) 10 mg PO DAILY PRN; Protocol PRN Reason: Constipation (see protocol) Citalopram Hydrobromide (Citalopram 20 Mg Tablet) 40 mg PO DAILY [facility] Cyclobenzaprine HCl (Cyclobenzaprine 10 Mg Tablet) 10 mg PO TID PRN PRN Reason: MUSCLE SPASMS Enoxaparin Sodium (Enoxaparin 100 Mg/Ml Syringe) 120 mg SUBCUT DAILY [facility] Gabapentin (Gabapentin 300 Mg Capsule) 600 mg PO TID [facility] Last Admin: 04/12/21 22:14 Dose: 600 mg Documented by: Bumetanide 25 mg/ N/A 100 mls @ 8 mls/hr IV .[id number] [facility] Last Admin: 04/12/21 22:18 Dose: 2 mg/hr, 8 mls/hr Documented by: Isosorbide Mononitrate (Isosorbide Mononitrate Er 30 Mg Tablet) 30 mg PO BID@0600,1800 [facility] Last Admin: 04/13/21 06:40 Dose: 30 mg Documented by: Levothyroxine Sodium (Levothyroxine 88 Mcg Tablet) 88 mcg PO QAM [facility] Last Admin: 04/13/21 06:40 Dose: 88 mcg Documented by: Metoprolol Tartrate (Metoprolol Tartrate 50 Mg Tablet) 50 mg PO BID@0600,1800 [facility] Last Admin: 04/13/21 06:40 Dose: 50 mg Documented by: Naloxone HCl (Naloxone 0.4 Mg/Ml Sdv) 0.1 mg IVP Q2M PRN PRN Reason: OPIATERV Nitroglycerin (Nitroglycerin 0.4 Mg Sublingual Tablet) 0.4 mg SUBLINGUAL Q5M PRN PRN Reason: Chest Pain Non-Formulary Medication (Hydroxyzine Hcl) 50 mg PO QID PRN PRN Reason: anxiety Non-Formulary Medication (Multivitamin [Daily Multi-Vitamin]) 1 tab PO QPM [facility] Promethazine HCl (Promethazine 25 Mg/Ml Sdv 1 Ml) 12.5 mg IM Q6H PRN PRN Reason: NAUSEA Last Admin: 04/12/21 19:14 Dose: 12.5 mg Documented by: Ranolazine (Ranolazine (12hr) 500 Mg Tablet) 500 mg PO BID [facility] Trazodone HCl (Trazodone 100 Mg Tablet) 300 mg PO BEDTIME PRN PRN Reason: insomnia Vitals/I&O/Wt Last Vital Signs Temp 97.9 F 04/13/21 12:00 Pulse 72 04/13/21 12:00 Resp 16 04/13/21 12:00 BP 124/90 04/13/21 12:00 Pulse Ox 96 04/13/21 12:00 04/12/21 04/13/21 04/13/21 22:59 06:59 14:59 Intake Total 50 / 50 798.133 / 798.133 Output Total 1725 / 1725 750 / 750 Balance 50 / 50 -1725 / -1675 48.133 / 48.133 Weight last 48 hrs Weight 120.202 kg Physical Exam Const: COMMON NORMALS: patient oriented x3 HENMT: COMMON NORMALS: normocephalic and atraumatic HEAD & SCALP: normocephalic and atraumatic Resp: OTHER: Bilateral diminished air entry Cardio: COMMON NORMALS: regular rate, regular rhythm, S1 normal heart sound present, S2 normal heart sound present, No gallops present (Cardio), No murmurs present (Cardio), No rub (Cardio) and Peripheral pulses 2+ throughout RATE: regular rate RHYTHM: regular rhythm HEART SOUNDS: S1 normal heart sound present and S2 normal heart sound present PERIPHERAL PULSES: Peripheral pulses 2+ throughout GI: COMMON NORMALS: Soft to palpation, non-tender, No hepatosplenomegaly pr esent and no masses AUSCULTATION: Yes normoactive bowel sounds PALPATION: Yes Soft to palpation and Yes No hepatosplenomegaly present RECTAL EXAM: Yes deferred Extremity: NARRATIVE EXTREMITY EXAM: 2+ bilateral pitting edema present Neuro: COMMON NORMALS: patient oriented x3 Data : 04/13/21 03:43 04/13/21 03:43 A&P Assessment and plan (1) Acute kidney injury superimposed on CKD: Status: Acute (2) CHF exacerbation: Status: Acute Qualifiers: Heart failure type: systolic Qualified Code(s): I50.23 - Acute on chronic systolic (congestive) heart failure (3) Anasarca: Status: Acute (4) Hypertension: Status: Acute (5) Diabetes: Status: Acute (6) History of DVT (deep vein thrombosis): Status: Acute (7) History of pulmonary embolism: Status: Acute Additional A&P Information 50 yo man with PMHx of CAD with h/o multiple stents, HTN, HLD, h/o DVT's, PE , DM-2, CKD stage 4, hypothyroidism, heart failure with reduced infection with EF of around 40-45%, history of bilateral compartment syndrome, status post fasciotomy below-knee bilateral, recent coronary angiogram in January 2021 wit h patent stent and rest nonocclusive coronary artery disease came in with chief complaint of, worsening shortness of breath, orthopnea , weight gain, lethargy, and confusion. #JESUS on worsening CKD stage IV likely secondary to cardiorenal syndrome: Currently on Bumex drip, albumin one-time dose, intake output charting, daily weight, monitor electrolytes. Possibility of going on H/D during this ad mission. Ultrasound abdomen:No ascites. Renal ultrasound:Unremarkable kidneys and bladder #Decompensated heart failure with preserved ejection fraction: Plan as above #Hypertension: Continue amlodipine, metoprolol #Diabetes:SSI, FSG, carbohydrate consistent #History of DVT and PE: On therapeutic anticoagulation with Lovenox. Bilateral lower extremity Doppler vein: Negative for Dvt #History of hypothyroidism: Continue levothyroxine #CODE STATUS: Full code Attestations Medical Necessity Statement*: Patient needs to in hospital for management of above defined problems Coding Level of Care Code Acute Aircraft Electrician for Radha Fwd Exam Expanded Problem Focused Diagnoses Acute kidney injury superimposed on CKD N17.9; N18.9 CHF exacerbation I50.23 Heart failure type: systolic Anasarca R60.1 Hypertension I10 Diabetes E11.9 History of DVT (deep vein thrombosis) Z86.718 History of pulmonary embolism Z86.711
--- NOTE | 2021-04-13 17:48 | PC.NURSE ---
Pt transferred to room 107, Eryn RN at bedside. No issues. Bumex gtt infusing per orders.
--- NOTE | 2021-04-13 18:56 | USR_ITS ---
PROCEDURE INFORMATION: Exam: US Retroperitoneal; Complete; Kidneys and Bladder Exam date and time: 04/13/2021 6:56 PM Age: 50 years old Clinical indication: Bloating; Additional info: Renal failure TECHNIQUE: Imaging protocol: Real-time ultrasound of the retroperitoneum with image documentation. Complete exam focused on the kidneys and bladder. COMPARISON: US abdomen lmt fluid [id number] 04/13/2021 7:15 AM FINDINGS: Right kidney: Normal. No stones. No hydronephrosis. Left kidney: Normal. No stones. No hydronephrosis. Urinary bladder: Unremarkable. US/US renal BI* [id number] IMPRESSION: Unremarkable kidneys and bladder. Radiation Dose CTDIVOL = (mGy): DLP = (mGy-cm)
--- NOTE | 2021-04-13 18:56 | USR_ITS ---
PROCEDURE INFORMATION: Exam: US Duplex Lower Extremity Veins, Bilateral Exam date and time: 04/13/2021 6:56 PM Age: 50 years old Clinical indication: Edema, localized; Upper extremity, bilateral; Additional info: Edema, SOB TECHNIQUE: Imaging protocol: Real-time duplex ultrasound of the extremities with 2-D blanco scale, color Doppler flow and spectral waveform analysis with image documentation. Complete exam focused on the bilateral lower extremity veins. COMPARISON: US CV venous duplex [facility] [id number] 03/26/2021 4:51 PM FINDINGS: Right deep veins: Unremarkable. The common femoral, femoral, proximal profunda femoral and popliteal veins are patent without thrombus. Normal Doppler waveforms. Normal compressibility and/or augmentation response. Right superficial veins: Saphenofemoral junction is patent without thrombus. Left deep veins: Unremarkable. The common femoral, femoral, proximal profunda femoral and popliteal veins are patent without thrombus. Normal Doppler waveforms. Normal compressibility and/or augmentation response. Left superficial veins: Saphenofemoral junction is patent without thrombus. Soft tissues: Unremarkable. US/CV venous duplex [facility] [id number] IMPRESSION: No evidence of deep vein thrombosis. Radiation Dose CTDIVOL = (mGy): DLP = (mGy-cm)
--- NOTE | 2021-04-13 18:56 | USCV_ITS ---
Rei Queen Age: 50 Gender: M : 1970 Exam Date: 04/13/2021 07:03 Ordering Phys: Royn Villarreal MD Technologist: Exam Location: [facility] [place] Indication: SOB BP: 168 / 96 HR: 71 Rhythm: Sinus Technical Quality: Adequate MEASUREMENTS (Male / Female) Normal Values 2D ECHO LV Diastolic Diameter PLAX 5.5 cm 4.2 - 5.9 / 3.9 - 5.3 cm LV Systolic Diameter PLAX 4.6 cm IVS Diastolic Thickness 1.1 cm 0.6 - 1.0 / 0.6 - 0.9 cm IVS Systolic Thickness 1.1 cm LVPW Diastolic Thickness 1.3 cm 0.6 - 1.0 / 0.6 - 0.9 cm LVPW Systolic Thickness 1.5 cm LVOT Diameter 2.1 cm LV Ejection Fraction 2D Teich 33.6 % LV Ejection Fraction MOD 2C 55.7 % LV Ejection Fraction 2C AL 56.7 % LA Diameter 4.5 cm LA Width 3.9 cm LA Height 5.0 cm RA Width 3.2 cm RA Height 4.7 cm Aorta at Sinotubular Diameter 3.0 cm DOPPLER AV Peak Velocity 119.0 cm/s LVOT Peak Velocity 77.0 cm/s AV Area Cont Eq vti 2.2 cm squared AV Area Cont Eq pk 2.2 cm squared MV Area PHT 5.0 cm squared Mitral E to A Ratio 0.8 MV E' Velocity 31.5 cm/s Mitral E to MV E' Ratio 10.4 Mitral E to LV E' Lateral Ratio 9.5 Mitral E to LV E' Septal Ratio 11.4 TR Peak Velocity 118.0 cm/s TR Peak Gradient 5.6 mmHg TV Peak E Velocity 67.0 cm/s Right Atrial Pressure 3.0 mmHg Pulmonary Artery Systolic Pressu 8.6 mmHg FINDINGS Left Ventricle Moderately increased left ventricular cavity size. Severely decreased left ventricular systolic function. Most likely left ventricle ejection fraction around 35%. Please note that suboptimal image quality cannot rule out wall motion abnormality. Advise repeating limited echo with contrast. Right Ventricle The right ventricle is normal in size and function. Right Atrium The right atrium is normal in size. Left Atrium The left atrium is normal in size. Mitral Valve Moderately thickened mitral valve. Moderate mitral annular calcification. No mitral valve stenosis. Trace mitral valve regurgitation. Aortic Valve Structurally normal aortic valve without significant sclerosis or stenosis. There is no aortic regurgitation. Tricuspid Valve Structurally normal tricuspid valve without significant stenosis or regurgitation. Pulmonary artery systolic pressure is normal. Pulmonic Valve Structurally normal pulmonic valve without significant stenosis. There is no pulmonic regurgitation. Pericardium Normal pericardium without effusion. Aorta Normal ascending aorta dimension. CONCLUSIONS 1-Moderately increased left ventricular cavity size. Severely decreased left ventricular systolic function. Most likely left ventricle ejection fraction around 35%. Please note that suboptimal image quality cannot rule out wall motion abnormality. Advise repeating limited echo with contrast. 2-No significant chamber abnormalities. 3-There is no pericardial effusion. 4-Due to suboptimal and poor quality images cannot compare with the prior echocardiogram advised limited echo with contrast. Rosi Vee MD (Electronically Signed) Final Date: 13 April 2021 16:28 S
--- NOTE | 2021-04-13 18:56 | USR_ITS ---
PROCEDURE INFORMATION: Exam: US Abdomen; Limited Exam date and time: 04/13/2021 6:56 PM Age: 50 years old Clinical indication: Bloating; Additional info: Ascites TECHNIQUE: Imaging protocol: US abdomen. Real time ultrasound with image documentation. Limited exam focused on the region of clinical interest. COMPARISON: US scrotum [id number] 01/08/2021 6:39 PM FINDINGS: Intraperitoneal space: No free fluid is identified in the abdomen. US/US abdomen lmt fluid [id number] IMPRESSION: No ascites is seen. Radiation Dose CTDIVOL = (mGy): DLP = (mGy-cm)
[2021-04-13 21:07] LABS: Glucose Point of Care 245 mg/dL (70-110)
[2021-04-13] MEDS: cyclobenzaprine 10 mg Tablet PO (21:08)
--- NOTE | 2021-04-13 21:45 | PC.NURSE ---
Patient requesting something stronger for pain on first assessment. Patient had been given prn hydro at 1700 before being transferred here. Gabapentin and flexeril given per order. Will continue to monitor.
[2021-04-14] VITALS (22 sets, daily range): BP systolic 125–164; BP diastolic 79–96; PULSE 63–70; RESP 12–22; TEMP 36.7–36.9; O2SAT 88–97
[2021-04-14] MEDS: acetaminophen 325 mg Tablet 650 MG PO ×2 (00:28→22:56)
--- NOTE | 2021-04-14 03:19 | PC.NURSE ---
Patient requesting pain medication throughout the night. Patient has hydrocodone prn q12. Flexeril and gabapentin given in evening. Tylenol given and patient educated that he has to wait the appropriate time until he can receive the next dose of hydrocodone. Will continue to monitor.
[2021-04-14] MEDS: atorvastatin 40 mg Tablet PO (05:10)
[2021-04-14] MEDS: metoprolol tartrate 50 mg Tablet PO ×2 (05:10→18:20)
[2021-04-14] MEDS: isosorbide mononitrate ER 30 mg Tablet PO ×2 (05:10→18:20)
[2021-04-14] MEDS: levothyroxine 88 mcg Tablet PO (05:10)
[2021-04-14] MEDS: HYDROcodone-acetaminophen 5-325 mg Tablet 1 TAB PO ×2 (05:11→20:42)
[2021-04-14] MEDS: aspirin 81 mg EC Tablet PO (05:11)
--- NOTE | 2021-04-14 06:53 | PM.PN ---
Subjective Subjective: Interval history: no complaints Medications: Reviewed: Yes Vitals/I&O/Wt Last Vital Signs Temp 98.2 F 04/14/21 04:00 Pulse 65 04/14/21 05:00 Resp 15 04/14/21 05:00 BP 138/91 04/14/21 05:00 Pulse Ox 92 04/14/21 05:00 04/13/21 04/13/21 04/14/21 14:59 22:59 06:59 Intake Total 798.133 / 798.133 340 / 1138.133 120 / 1258.133 Output Total 1450 / 1450 1600 / 3050 Balance -651.867 / -651.867 -1260 / -1911.867 120 / -1791.867 Weight last 48 hrs Weight 120.202 kg Physical Exam Const: COMMON NORMALS: no acute distress GENERAL APPEARANCE: cooperative Extremity: GENERAL: Yes edema (trace) Data : 04/14/21 06:35 04/14/21 08:40 A&P Additional A&P Information seen and examined via telemedicine, with assistance of bedside RN 1. Chronic kidney disease, increased BUN/Cr today likely due to bumex, also with metabolic alkalosis, rising Hb. No current indication for dialysis 2. CHF, excellent urine output on bumex gtt and metalozone Recommend: discontinue bumex gtt - change to intermittent IV, then oral tomorrow Follows with Dr Weiss as outpatient Attestations Medical Necessity Statement*: see above Time Spent in Patient Care: 16 - 35 minutes Coding Level of Care Code Acute Child Life Therapist for Aaron Irene
[2021-04-14 07:01] LABS: Basophils # 0.1 10^3/uL (0.0-0.1); Basophils % 1.2 %; Eosinophils # 0.3 10^3/uL (0.0-0.8); Eosinophils % 2.9 %; Hematocrit 39.4 % (42.0-52.0); Lymphocytes % 23.6 %; Mean Corpuscular Hemoglobin 29.3 pg (28.0-34.0); Mean Corpuscular Volume 88.7 fl (80-94); Monocytes # 0.8 10^3/uL (0.2-0.9); Monocytes % 9.4 %; Neutrophils # 5.37 10^3/uL (1.8-7.7); Neutrophils % 62.3 %; Nucleated Red Blood Cells % 0 %; Platelet Count 281 10^3/cmm (130-400); Red Blood Count 4.44 10^6/uL (4.1-5.3); Red Cell Distribution Width 15.7 % (12.1-15.1); White Blood Count 8.6 10^3/uL (4.0-10.0)
[2021-04-14 07:43] LABS: Glucose Point of Care 194 mg/dL (70-110)
--- NOTE | 2021-04-14 08:00 | PC.NURSE ---
Pt sitting on the side of bed talking to and eating breakfast. Pt resp even and non-labored no distress noted. Pt O2 92% on 2Lpm O2 via nc. Pt Bumex drip DCd. Pt had no c/o pain or discomfort at the present time. No needs voiced. Call light in reach. Will cont to monitor.
--- NOTE | 2021-04-14 08:07 | PC.NURSE ---
Frequent safety and comfort rounds continue. Orders and/or nursing care completed as indicated. Patient monitored for response to intervention and treatment(s). Education provided includes pain medication. Patient and/or sales representative door to door verbalized understanding. Will continue to monitor.
[2021-04-14 09:12] LABS: Alanine Aminotransferase 14 U/L (0-41); Albumin Level 3.6 g/dL (3.5-5.2); Alkaline Phosphatase 130 IU/L (40-130); Anion Gap 15.3 (5-19); Aspartate Amino Transferase 12 U/L (0-40); Blood Urea Nitrogen 54 mg/dL (6-20); Calcium 9.1 mg/dL (8.5-10.5); Carbon Dioxide 33 mmol/L (22-29); Chloride 91 mmol/L (98-107); Globulin 3.2 g/dL (1.3-4.6); Glomerular Filtration Rate 19.8 mL/min (90-130); Glucose 243 mg/dL (65-115); Osmolality Calculated 303 mOsm/kg (285-295); Phosphorus 5.2 mg/dL (2.5-4.5); Potassium 4.3 mmol/L (3.5-5.1); Sodium 135 mmol/L (136-145); Total Bilirubin 0.5 mg/dL (0.15-1.2); Total Protein 6.8 g/dL (6.6-8.7)
[2021-04-14 09:18] LABS: Parathyroid Hormone 106.1 pg/mL (15-65)
[2021-04-14 09:56] LABS: 25 Hydroxy Vitamin D > 100 ng/mL (30-100)
[2021-04-14] MEDS: bumetanide 0.25 mg/mL SDV 10 mL 2 MG IVP ×3 (10:09→20:40)
[2021-04-14] MEDS: enoxaparin 120 mg/0.8 mL Syringe SUBCUT (10:10)
[2021-04-14] MEDS: amlodipine 5 mg Tablet 10 MG PO (10:10)
[2021-04-14] MEDS: ranolazine (12HR) 500 mg Tablet PO ×2 (10:11→18:20)
[2021-04-14] MEDS: gabapentin 300 mg Capsule 600 MG PO ×3 (10:11→20:40)
[2021-04-14] MEDS: citalopram 20 mg Tablet 40 MG PO (10:11)
[2021-04-14] MEDS: metOLazone 5 MG Tablet PO (10:11)
[2021-04-14] MEDS: morphine 4 mg/mL SDV 1 mL 2 MG IVP (11:50)
[2021-04-14 13:05] LABS: Glucose Point of Care 276 mg/dL (70-110)
--- NOTE | 2021-04-14 13:09 | PC.CHAP ---
Pastoral Care Encounter/Spiritual Assessment Type of Contact [] Declined edge worker visit [] Patient/Family/Request visit [] Outpatient visit [] Follow-up visit [] Physician referral [] Code/Alert [] Routine visit [] Staff referral [] Actively dying [] Patient sleeping [] Family support [] [] Out of room [] Palliative care [] [] Receiving care in room [] Pre-surgical visit [] Trauma [] Long length of stay [] ICU visit [] Other: Relational/Emotional Strength [] Patient feels connected with others/family/visitors/staff [] Distress [] Loneliness/isolation [] Abandonment Spirituality of Patient [] Person of Shannon [] Attends Zoroastrian of their Shannon [] Believes in Prayer [] Reads Bible or Faith materials [] There are Spiritual issues to be addressed Transmitter Tester Interventions [] Prayer [] Active listening [] Non-anxious presence [] Spiritual/emotional support [] Crisis/trauma care [] Spiritual counseling [] Bereavement support [] Provided bereavement packet [] Provided Bible/devotional materials [] Provided toy/stuffed animal, coloring book to patient or family member [] Provided Communion [] Anointing/Seguin [] Salvation [] Completed spiritual assessment [] Other: Impact on Illness or Injury [] Angry [] Fearful [] Anxious [] Often cries [] Exhaustion [] Unable to work [] Unable to attend roman catholic [] Unable to walk/stand [] Unable to read [] Unable to drive [] Unable to eat/drink [] Unable to sleep [] Unable to be with family [] Patient intubated [] Other: Summary Time spent with patient Pastoral Care Encounter/Spiritual Assessment Type of Contact [] Declined edge worker visit [] Patient/Family/Request visit [] Outpatient visit [] Follow-up visit [] Physician referral [] Code/Alert [] Routine visit [] Staff referral [] Actively dying [] Patient sleeping [] Family support [] [xx] Out of room [] Palliative care [] [] Receiving care in room [] Pre-surgical visit [] Trauma [] Long length of stay [] ICU visit [] Other: Relational/Emotional Strength [] Patient feels connected with others/family/visitors/staff [] Distress [] Loneliness/isolation [] Abandonment Spirituality of Patient [] Person of Shannon [] Attends Zoroastrian of their Shannon [] Believes in Prayer [] Reads Bible or Faith materials [] There are Spiritual issues to be addressed Transmitter Tester Interventions [] Prayer [] Active listening [] Non-anxious presence [] Spiritual/emotional support [] Crisis/trauma care [] Spiritual counseling [] Bereavement support [] Provided bereavement packet [] Provided Bible/devotional materials [] Provided toy/stuffed animal, coloring book to patient or family member [] Provided Communion [] Anointing/Seguin [] Salvation [] Completed spiritual assessment [] Other: Impact on Illness or Injury [] Angry [] Fearful [] Anxious [] Often cries [] Exhaustion [] Unable to work [] Unable to attend roman catholic [] Unable to walk/stand [] Unable to read [] Unable to drive [] Unable to eat/drink [] Unable to sleep [] Unable to be with family [] Patient intubated [] Other: Summary Patient in his bed out of room. Follow up later. Time spent with patient
[2021-04-14 17:01] LABS: Glucose Point of Care 285 mg/dL (70-110)
[2021-04-14] MEDS: insulin lispro 100 unit/1 mL SUBCUT ×2 (18:20→20:38)
--- NOTE | 2021-04-14 18:33 | P.PN_ITS ---
Subjective Subjective: Interval history: Patient was seen and examined this morning, feels better, was complaining of some abdominal discomfort at the ingunial hernia site. No indication for dialysis for now. Medications: Reviewed: Yes Medication Review Details: Current Medications Acetaminophen (Acetaminophen 325 Mg Tablet) 650 mg PO Q6H PRN PRN Reason: Mild/Mod Pain Or Temp >/= 101 Hydrocodone Bitart/Acetaminophen (Hydrocodone-Acetaminophen 5-325 Mg Tablet) 1 tab PO BID PRN PRN Reason: pain Last Admin: 04/13/21 06:45 Dose: 1 tab Documented by: Amlodipine Besylate (Amlodipine 5 Mg Tablet) 10 mg PO DAILY [facility] Aspirin (Aspirin 81 Mg Ec Tablet) 81 mg PO DAILY@0600 [facility] Last Admin: 04/13/21 06:40 Dose: 81 mg Documented by: Atorvastatin Calcium (Atorvastatin 40 Mg Tablet) 40 mg PO QAM [facility] Last Admin: 04/13/21 06:40 Dose: 40 mg Documented by: Bisacodyl (Bisacodyl 5 Mg Tablet) 10 mg PO DAILY PRN; Protocol PRN Reason: Constipation (see protocol) Citalopram Hydrobromide (Citalopram 20 Mg Tablet) 40 mg PO DAILY [facility] Cyclobenzaprine HCl (Cyclobenzaprine 10 Mg Tablet) 10 mg PO TID PRN PRN Reason: MUSCLE SPASMS Enoxaparin Sodium (Enoxaparin 100 Mg/Ml Syringe) 120 mg SUBCUT DAILY [facility] Gabapentin (Gabapentin 300 Mg Capsule) 600 mg PO TID [facility] Last Admin: 04/12/21 22:14 Dose: 600 mg Documented by: Bumetanide 25 mg/ N/A 100 mls @ 8 mls/hr IV .[id number] [facility] Last Admin: 04/12/21 22:18 Dose: 2 mg/hr, 8 mls/hr Documented by: Isosorbide Mononitrate (Isosorbide Mononitrate Er 30 Mg Tablet) 30 mg PO BID@0600,1800 [facility] Last Admin: 04/13/21 06:40 Dose: 30 mg Documented by: Levothyroxine Sodium (Levothyroxine 88 Mcg Tablet) 88 mcg PO QAM [facility] Last Admin: 04/13/21 06:40 Dose: 88 mcg Documented by: Metoprolol Tartrate (Metoprolol Tartrate 50 Mg Tablet) 50 mg PO BID@0600,1800 [facility] Last Admin: 04/13/21 06:40 Dose: 50 mg Documented by: Naloxone HCl (Naloxone 0.4 Mg/Ml Sdv) 0.1 mg IVP Q2M PRN PRN Reason: OPIATERV Nitroglycerin (Nitroglycerin 0.4 Mg Sublingual Tablet) 0.4 mg SUBLINGUAL Q5M PRN PRN Reason: Chest Pain Non-Formulary Medication (Hydroxyzine Hcl) 50 mg PO QID PRN PRN Reason: anxiety Non-Formulary Medication (Multivitamin [Daily Multi-Vitamin]) 1 tab PO QPM [facility] Promethazine HCl (Promethazine 25 Mg/Ml Sdv 1 Ml) 12.5 mg IM Q6H PRN PRN Reason: NAUSEA Last Admin: 04/12/21 19:14 Dose: 12.5 mg Documented by: Ranolazine (Ranolazine (12hr) 500 Mg Tablet) 500 mg PO BID [facility] Trazodone HCl (Trazodone 100 Mg Tablet) 300 mg PO BEDTIME PRN PRN Reason: insomnia Vitals/I&O/Wt Last Vital Signs Temp 98.2 F 04/14/21 04:00 Pulse 64 04/14/21 16:00 Resp 13 04/14/21 16:00 BP 137/96 04/14/21 16:00 Pulse Ox 91 04/14/21 16:00 04/14/21 04/14/21 04/14/21 06:59 14:59 22:59 Intake Total 120 / 1258.133 Output Total 1500 / 1500 Balance 120 / -1791.867 -1500 / -1500 Physical Exam Const: COMMON NORMALS: patient oriented x3 HENMT: COMMON NORMALS: normocephalic and atraumatic HEAD & SCALP: normoce phalic and atraumatic Resp: OTHER: Bilateral diminished air entry Cardio: COMMON NORMALS: regular rate, regular rhythm, S1 normal heart sound present, S2 normal heart sound present, No gallops present (Cardio), No murmurs present (Cardio), No rub (Cardio) and Peripheral pulses 2+ throughout RATE: regular rate RHYTHM: regular rhythm HEART SOUNDS: S1 normal heart sound present and S2 normal heart sound present PERIPHERAL PULSES: Peripheral pulses 2+ throughout GI: COMMON NORMALS: Soft to palpation, non-tender, No hepatosplenomegaly present and no masses AUSCULTATION: Yes normoactive bowel sounds PALPATION: Yes Soft to palpation and Yes No hepatosplenomegaly present RECTAL EXAM: Yes deferred Extremity: NARRATIVE EXTREMITY EXAM: 2+ bilateral pitting edema present Neuro: COMMON NORMALS: patient oriented x3 Data : 04/14/21 06:35 04/14/21 08:40 A&P Assessment and plan (1) Acute kidney injury superimposed on CKD: Status: Acute (2) CHF exacerbation: Status: Acute Qualifiers: Heart failure type: systolic Qualified Code(s): I50.23 - Acute on chronic systolic (congestive) heart failure (3) Anasarca: Status: Acute (4) Hypertension: Status: Acute (5) Diabetes: Status: Acute (6) History of DVT (deep vein thrombosis): Status: Acute (7) History of pulmonary embolism: Status: Acute Additional A&P Information 50 yo man with PMHx of CAD with h/o multiple stents, HTN, HLD, h/o DVT's, PE , DM-2, CKD stage 4, hypothyroidism, heart failure with reduced infection with EF of around 40-45%, history of bilateral compartment syndrome, status post fasciotomy below-knee bilateral, recent coronary angiogram in January 2021 with patent stent and rest nonocclusive coronary artery disease came in with chief complaint of, worsening shortness of breath, orthopnea , weight gain, lethargy, and confusion. #JESUS on worsening CKD stage IV likely secondary to cardiorenal syndrome:Initially on Bumex drip, was switched to Bumex 2 MG I.V Q6H. albumin one-time dose, intake output charting, daily weight, monitor electrolytes. Possibility of going on H/D during this admission. Ultrasound abdomen:No ascites. Renal ultrasound:Unremarkable kidneys and bladder #Decompensated heart failure with preserved ejection fraction: Plan as above #Hypertension: Continue amlodipine, metoprolol #Diabetes:SSI, FSG, carbohydrate consistent #History of DVT and PE: On therapeutic anticoagulation with Lovenox. Bilateral lower extremity Doppler vein: Negative for Dvt #History of hypothyroidism: Continue levothyroxine #CODE STATUS: Full code Attestations Medical Necessity Statement*: Patient needs to be in hospital for management of above defined problems. Coding Level of Care Code Acute Athletic Gear Custodian for Aaron Irene Diagnoses Acute kidney injury superimposed on CKD N17.9; N18.9 CHF exacerbation I50.23 Heart failure type: systolic Anasarca R60.1 Hypertension I10 Diabetes E11.9 History of DVT (deep vein thrombosis) Z86.718 History of pulmonary embolism Z86.711
[2021-04-14 20:18] LABS: Glucose Point of Care 230 mg/dL (70-110)
[2021-04-14] MEDS: cyclobenzaprine 10 mg Tablet PO (20:42)
[2021-04-14] MEDS: trazodone 100 mg Tablet 300 MG PO (22:56)
[2021-04-15] VITALS (11 sets, daily range): BP systolic 107–137; BP diastolic 67–81; PULSE 60–94; RESP 15–20; TEMP 36.6–37.6; O2SAT 93–94
--- NOTE | 2021-04-15 00:21 | PC.NURSE ---
Patient given prn hydrocodone with flexeril at 2100. Requesting stronger pain medications after having a BM. Given tylenol and and his prn trazadone to help patient sleep. Educated patient that his dose of morphine was only ordered as a one time dose and he does not have morphine ordered at this time. Will continue to monitor.
[2021-04-15] MEDS: levothyroxine 88 mcg Tablet PO (05:36)
[2021-04-15] MEDS: aspirin 81 mg EC Tablet PO (05:36)
[2021-04-15] MEDS: atorvastatin 40 mg Tablet PO (05:36)
[2021-04-15] MEDS: bumetanide 0.25 mg/mL SDV 10 mL 2 MG IVP (05:36)
[2021-04-15] MEDS: acetaminophen 325 mg Tablet 650 MG PO (05:37)
[2021-04-15] MEDS: isosorbide mononitrate ER 30 mg Tablet PO ×2 (05:40→18:28)
[2021-04-15] MEDS: metoprolol tartrate 50 mg Tablet PO ×2 (05:40→18:28)
--- NOTE | 2021-04-15 06:12 | PC.NURSE ---
Frequent safety and comfort rounds continue. Orders and/or nursing care completed as indicated. Patient monitored for response to intervention and treatment(s). Education provided includes other pain relief options. Patient and/or player services representative verbalizes understanding. Will continue to monitor.
[2021-04-15 06:18] LABS: Basophils # 0.1 10^3/uL (0.0-0.1); Basophils % 0.9 %; Eosinophils # 0.3 10^3/uL (0.0-0.8); Eosinophils % 3.3 %; Hematocrit 35.1 % (42.0-52.0); Hemoglobin 11.7 g/dL (11.7-16.6); Lymphocytes # 1.8 10^3/uL (0.8-4.8); Lymphocytes % 19.8 %; Mean Corpuscular HGB Conc 33.3 g/dL (30.0-36.0); Mean Corpuscular Hemoglobin 29.5 pg (28.0-34.0); Mean Corpuscular Volume 88.6 fl (80-94); Mean Platelet Volume 9.8 fL (7.4-10.4); Monocytes # 0.8 10^3/uL (0.2-0.9); Monocytes % 8.6 %; Neutrophils # 6.15 10^3/uL (1.8-7.7); Nucleated Red Blood Cells % 0 %; Platelet Count 288 10^3/cmm (130-400); Red Blood Count 3.96 10^6/uL (4.1-5.3); Red Cell Distribution Width 15.1 % (12.1-15.1); White Blood Count 9.2 10^3/uL (4.0-10.0)
[2021-04-15 06:30] LABS: Alanine Aminotransferase 12 U/L (0-41); Albumin Level 3.4 g/dL (3.5-5.2); Alkaline Phosphatase 113 IU/L (40-130); Anion Gap 21.2 (5-19); Aspartate Amino Transferase 10 U/L (0-40); Blood Urea Nitrogen 73 mg/dL (6-20); Calcium 8.3 mg/dL (8.5-10.5); Carbon Dioxide 25 mmol/L (22-29); Chloride 85 mmol/L (98-107); Globulin 2.5 g/dL (1.3-4.6); Glomerular Filtration Rate 16.8 mL/min (90-130); Glucose 258 mg/dL (65-115); Osmolality Calculated 296 mOsm/kg (285-295); Potassium 3.2 mmol/L (3.5-5.1); Sodium 128 mmol/L (136-145); Total Bilirubin 0.3 mg/dL (0.15-1.2); Total Protein 5.9 g/dL (6.6-8.7)
--- NOTE | 2021-04-15 06:40 | PC.NURSE ---
Patient requesting pain medication. Given prn tylenol as it is not time for hydrocodone until approximately 9am. Hydrocodone ordered prn bid.
[2021-04-15 06:43] LABS: Glucose Point of Care 254 mg/dL (70-110)
[2021-04-15 07:28] LABS: Phosphorus 6.2 mg/dL (2.5-4.5)
[2021-04-15] MEDS: enoxaparin 120 mg/0.8 mL Syringe SUBCUT (08:20)
[2021-04-15] MEDS: metOLazone 5 MG Tablet PO (08:21)
[2021-04-15] MEDS: amlodipine 5 mg Tablet 10 MG PO (08:21)
[2021-04-15] MEDS: ranolazine (12HR) 500 mg Tablet PO ×2 (08:21→18:28)
[2021-04-15] MEDS: citalopram 20 mg Tablet 40 MG PO (08:21)
[2021-04-15] MEDS: gabapentin 300 mg Capsule 600 MG PO ×3 (08:21→20:44)
--- NOTE | 2021-04-15 08:22 | PM.PN ---
Subjective Subjective: Interval history: right inguinal hernia painful, chronic issue, has appt at [facility] for possible surgery 04/28/21 no urinary complaints Medications: Reviewed: Yes Vitals/I&O/Wt Last Vital Signs Temp 98.5 F 04/14/21 19:22 Pulse 68 04/15/21 04:32 Resp 18 04/15/21 03:00 BP 128/72 04/15/21 03:00 Pulse Ox 94 04/15/21 03:00 04/14/21 04/15/21 04/15/21 22:59 06:59 14:59 Intake Total 120 / 120 Output Total 3000 / 3000 500 / 3500 Balance -2880 / -2880 -500 / -3380 Physical Exam Const: COMMON NORMALS: no acute distress GENERAL APPEARANCE: cooperative NUTRITIONAL APPEARANCE: obese Extremity: GENERAL: Yes edema (trace ankle) Data : 04/15/21 05:10 04/15/21 05:10 A&P Additional A&P Information seen and examined via telemedicine, with assistance of bedside RN 1. Chronic kidney disease, increased BUN/Cr today likely due to bumex, also with metabolic alkalosis, rising Hb. No current indication for dialysis 2. CHF, excellent urine output on intermittent bumex. Unclear if weights are accurate, 15# weight loss documented 3. Hypokalemia, hyponatremia Recommend: discontinue bumex and metalozone for today, resume oral bumex tomorrow Follows with Dr Weiss as outpatient Attestations Medical Necessity Statement*: per primary service Time Spent in Patient Care: 16 - 35 minutes Coding Level of Care Code Acute Supervisor Home Energy Consultant for Aaron Irene
[2021-04-15] MEDS: insulin lispro 100 unit/1 mL SUBCUT ×4 (08:24→20:47)
[2021-04-15] MEDS: potassium chloride ER 20 mEq Tablet PO (09:37)
[2021-04-15] MEDS: HYDROcodone-acetaminophen 5-325 mg Tablet 1 TAB PO ×2 (10:43→23:49)
[2021-04-15 12:13] LABS: Glucose Point of Care 162 mg/dL (70-110)
[2021-04-15] MEDS: cyclobenzaprine 10 mg Tablet PO ×2 (12:33→23:51)
--- NOTE | 2021-04-15 12:38 | P.PN_ITS ---
Subjective Subjective: Interval history: Patient was seen and examined this morning, feels better, continues to complain of right inguinal hernia pain. Which responds well to morphine IV. Robust urine output to Bumex IV: Currently 7 Ls negative, shortness of breath has improved a lot.though BUN and serum creatinine has trended up today, no clear indication for hemodialysis. Medications: Reviewed: Yes Medication Review Details: Current Medications Acetaminophen (Acetaminophen 325 Mg Tablet) 650 mg PO Q6H PRN PRN Reason: Mild/Mod Pain Or Temp >/= 101 Hydrocodone Bitart/Acetaminophen (Hydrocodone-Acetaminophen 5-325 Mg Tablet) 1 tab PO BID PRN PRN Reason: pain Last Admin: 04/13/21 06:45 Dose: 1 tab Documented by: Amlodipine Besylate (Amlodipine 5 Mg Tablet) 10 mg PO DAILY [facility] Aspirin (Aspirin 81 Mg Ec Tablet) 81 mg PO DAILY@0600 [facility] Last Admin: 04/13/21 06:40 Dose: 81 mg Documented by: Atorvastatin Calcium (Atorvastatin 40 Mg Tablet) 40 mg PO QAM [facility] Last Admin: 04/13/21 06:40 Dose: 40 mg Documented by: Bisacodyl (Bisacodyl 5 Mg Tablet) 10 mg PO DAILY PRN; Protocol PRN Reason: Constipation (see protocol) Citalopram Hydrobromide (Citalopram 20 Mg Tablet) 40 mg PO DAILY [facility] Cyclobenzaprine HCl (Cyclobenzaprine 10 Mg Tablet) 10 mg PO TID PRN PRN Reason: MUSCLE SPASMS Enoxaparin Sodium (Enoxaparin 100 Mg/Ml Syringe) 120 mg SUBCUT DAILY [facility] Gabapentin (Gabapentin 300 Mg Capsule) 600 mg PO TID [facility] Last Admin: 04/12/21 22:14 Dose: 600 mg Documented by: Bumetanide 25 mg/ N/A 100 mls @ 8 mls/hr IV .[id number] [facility] Last Admin: 04/12/21 22:18 Dose: 2 mg/hr, 8 mls/hr Documented by: Isosorbide Mononitrate (Isosorbide Mononitrate Er 30 Mg Tablet) 30 mg PO BID@0600,1800 [facility] Last Admin: 04/13/21 06:40 Dose: 30 mg Documented by: Levothyroxine Sodium (Levothyroxine 88 Mcg Tablet) 88 mcg PO QAM [facility] Last Admin: 04/13/21 06:40 Dose: 88 mcg Documented by: Metoprolol Tartrate (Metoprolol Tartrate 50 Mg Tablet) 50 mg PO BID@0600,1800 [facility] Last Admin: 04/13/21 06:40 Dose: 50 mg Documented by: Naloxone HCl (Naloxone 0.4 Mg/Ml Sdv) 0.1 mg IVP Q2M PRN PRN Reason: OPIATERV Nitroglycerin (Nitroglycerin 0.4 Mg Sublingual Tablet) 0.4 mg SUBLINGUAL Q5M PRN PRN Reason: Chest Pain Non-Formulary Medication (Hydroxyzine Hcl) 50 mg PO QID PRN PRN Reason: anxiety Non-Formulary Medication (Multivitamin [Daily Multi-Vitamin]) 1 tab PO QPM [facility] Promethazine HCl (Promethazine 25 Mg/Ml Sdv 1 Ml) 12.5 mg IM Q6H PRN PRN Reason: NAUSEA Last Admin: 04/12/21 19:14 Dose: 12.5 mg Documented by: Ranolazine (Ranolazine (12hr) 500 Mg Tablet) 500 mg PO BID [facility] Trazodone HCl (Trazodone 100 Mg Tablet) 300 mg PO BEDTIME PRN PRN Reason: insomnia Vitals/I&O/Wt Last Vital Signs Temp 98 F 04/15/21 11:26 Pulse 60 04/15/21 11:26 Resp 20 H 04/15/21 11:26 BP 137/81 04/15/21 11:26 Pulse Ox 93 04/15/21 11:26 04/14/21 04/15/21 04/15/21 22:59 06:59 14:59 Intake Total 120 / 120 360 / 360 Output Total 3000 / 3000 500 / 3500 400 / 400 Balance -2880 / -2880 -500 / -3380 -40 / -40 Weight last 48 hrs Weight 113.852 kg Physical Exam Const: COMMON NORMALS: patient oriented x3 HENMT: COMMON NORMALS: normocephalic and atraumatic HEAD & SCALP: normocephalic and atraumatic Resp: OTHER: Bilateral diminished air entry Cardio: COMMON NORMALS: regular rate, regular rhythm, S1 normal heart sound present, S2 normal heart sound present, No gallops present (Cardio), No murmurs present (Cardio), No rub (Cardio) and Peripheral pulses 2+ throughout RATE: regular rate RHYTHM: regular rhythm HEART SOUNDS: S1 normal heart sound present and S2 normal heart sound present PERIPHERAL PULSES: Peripheral pulses 2+ throughout GI: COMMON NORMALS: Soft to palpation, non-tender, No hepatosplenomegaly present and no masses AUSCULTATION: Yes normoactive bowel sounds PALPATION: Yes Soft to palpation and Yes No hepatosplenomegaly present RECTAL EXAM: Yes deferred Extremity: NARRATIVE EXTREMITY EXAM: 1+ bilateral pitting edema present Neuro: COMMON NORMALS: patient oriented x3 Data : 04/15/21 05:10 04/15/21 05:10 A&P Assessment and plan (1) Acute kidney injury superimposed on CKD: Status: Acute (2) CHF exacerbation: Status: Acute Qualifiers: Heart failure type: systolic Qualified Code(s): I50.23 - Acute on chronic systolic (congestive) heart failure (3) Anasarca: Status: Acute (4) Hypertension: Status: Acute (5) Diabetes: Status: Acute (6) History of DVT (deep vein thrombosis): Status: Acute (7) History of pulmonary embolism: Status: Acute Additional A&P Information 50 yo man with PMHx of CAD with h/o multiple stents, HTN, HLD, h/o DVT's, PE , DM-2, CKD stage 4, hypothyroidism, heart failure with reduced infection with EF of around 40-45%, history of bilateral compartment syndrome, status post fasciotomy below-knee bilateral, recent coronary angiogram in January 2021 with patent stent and rest nonocclusive coronary artery disease came in with chief complaint of, worsening shortness of breath, orthopnea , weight gain, lethargy, and confusion. #JESUS on worsening CKD stage IV likely secondary to cardiorenal syndrome:Initially on Bumex drip, was switched to Bumex 2 MG I.V Q6H. Bumex has been stopped, as he is euvolemic, and BUN/creatinine slightly worsened. albumin one-time dose, intake output charting, daily weight, monitor electrolytes. Possibility of going on H/D during this admission. Ultrasound abdomen:No ascites. Renal ultrasound:Unremarkable kidneys and bladder #Decompensated heart failure with preserved ejection fraction: Plan as above #Hypertension: Continue amlodipine, metoprolol #Diabetes:SSI, FSG, carbohydrate consistent #History of DVT and PE: On therapeutic anticoagulation with Lovenox. Bilateral lower extremity Doppler vein: Negative for Dvt #History of hypothyroidism: Continue levothyroxine #CODE STATUS: Full code Attestations Medical Necessity Statement*: Patient needs to be in hospital for management of above defined problems. Coding Level of Care Code Acute Community Living Specialist for Chg Fwd Exam Expanded Problem Focused Diagnoses Acute kidney injury superimposed on CKD N17.9; N18.9 CHF exacerbation I50.23 Heart failure type: systolic Anasarca R60.1 Hypertension I10 Diabetes E11.9 History of DVT (deep vein thrombosis) Z86.718 History of pulmonary embolism Z86.711
[2021-04-15] MEDS: morphine 4 mg/mL SDV 1 mL 1 MG IVP (15:57)
[2021-04-15 17:31] LABS: Glucose Point of Care 272 mg/dL (70-110)
[2021-04-15 20:17] LABS: Glucose Point of Care 302 mg/dL (70-110)
[2021-04-15] MEDS: trazodone 100 mg Tablet 300 MG PO (23:49)
[2021-04-16] VITALS (12 sets, daily range): BP systolic 106–164; BP diastolic 51–92; PULSE 60–96; RESP 11–22; TEMP 36.4–36.7; O2SAT 90–94
--- NOTE | 2021-04-16 04:17 | PC.NURSE ---
Patient called and requested pain medication and was asleep when this RN went into the room. Woke patient and he was given hydrocodone with flexril and trazadone at 2349. Patient then called to request pain medication at 0100. Did not remember that he had been given medications. Sleeping on re-assessment. Will continue to monitor.
--- NOTE | 2021-04-16 05:20 | PC.NURSE ---
Frequent safety and comfort rounds continue. Orders and/or nursing care completed as indicated. Patient monitored for response to intervention and treatment(s). Education provided includes pain management other than medications. Patient and/or sales representative girls' apparel verbalizes understanding. Will continue to monitor.
[2021-04-16] MEDS: levothyroxine 88 mcg Tablet PO (05:54)
[2021-04-16] MEDS: isosorbide mononitrate ER 30 mg Tablet PO ×2 (05:55→17:43)
[2021-04-16] MEDS: atorvastatin 40 mg Tablet PO (05:55)
[2021-04-16] MEDS: aspirin 81 mg EC Tablet PO (05:55)
[2021-04-16] MEDS: metoprolol tartrate 50 mg Tablet PO (05:55)
[2021-04-16] MEDS: acetaminophen 325 mg Tablet 650 MG PO (05:56)
[2021-04-16 06:38] LABS: Glucose Point of Care 255 mg/dL (70-110)
--- NOTE | 2021-04-16 07:54 | P.PN_ITS ---
Subjective Subjective: Interval history: confused. hypoxic on room air. no h. + nause. dec edema Medications: Reviewed: Yes Medication Review Details: Current Medications Acetaminophen (Acetaminophen 325 Mg Tablet) 650 mg PO Q6H PRN PRN Reason: Mild/Mod Pain Or Temp >/= 101 Last Admin: 04/16/21 05:56 Dose: 650 mg Documented by: Hydrocodone Bitart/Acetaminophen (Hydrocodone-Acetaminophen 5-325 Mg Tablet) 1 tab PO BID PRN PRN Reason: pain Last Admin: 04/15/21 23:49 Dose: 1 tab Documented by: Amlodipine Besylate (Amlodipine 5 Mg Tablet) 10 mg PO DAILY [facility] Last Admin: 04/15/21 08:21 Dose: 10 mg Documented by: Aspirin (Aspirin 81 Mg Ec Tablet) 81 mg PO DAILY@0600 [facility] Last Admin: 04/16/21 05:55 Dose: 81 mg Documented by: Atorvastatin Calcium (Atorvastatin 40 Mg Tablet) 40 mg PO QAM [facility] Last Admin: 04/16/21 05:55 Dose: 40 mg Documented by: Bisacodyl (Bisacodyl 5 Mg Tablet) 10 mg PO DAILY PRN; Protocol PRN Reason: Constipation (see protocol) Citalopram Hydrobromide (Citalopram 20 Mg Tablet) 40 mg PO DAILY [facility] Last Admin: 04/15/21 08:21 Dose: 40 mg Documented by: Cyclobenzaprine HCl (Cyclobenzaprine 10 Mg Tablet) 10 mg PO TID PRN PRN Reason: MUSCLE SPASMS Last Admin: 04/15/21 23:51 Dose: 10 mg Documented by: Dextrose (Dextrose 50% Syringe 50 Ml) 25 ml IVP ONCE PRN; Protocol PRN Reason: hypoglycemia protocol Dextrose (Dextrose 50% Syringe 50 Ml) 50 ml IVP PRN PRN; Protocol PRN Reason: hypoglycemia protocol Enoxaparin Sodium (Enoxaparin 120 Mg/0.8 Ml Syringe) 120 mg SUBCUT DAILY [facility] Last Admin: 04/15/21 08:20 Dose: 120 mg Documented by: Gabapentin (Gabapentin 300 Mg Capsule) 600 mg PO TID [facility] Last Admin: 04/15/21 20:44 Dose: 600 mg Documented by: Glucagon (Glucagon 1 Mg/Ml Inj 1 Ml) 1 mg IM ONCE PRN; Protocol PRN Reason: Adult Acute Hypoglycemia Prot. Dextrose (D5w) 500 mls @ 100 mls/hr IV ONCE PRN; Protocol PRN Reason: Adult Acute Hypoglycemia Prot Insulin Human Lispro (Insulin Lispro 100 Unit/1 Ml) 0 unit SUBCUT WM&BEDTIME [facility]; Protocol Last Admin: 04/15/21 20:47 Dose: 10 unit Documented by: Isosorbide Mononitrate (Isosorbide Mononitrate Er 30 Mg Tablet) 30 mg PO BID@0600,1800 [facility] Last Admin: 04/16/21 05:55 Dose: 30 mg Documented by: Levothyroxine Sodium (Levothyroxine 88 Mcg Tablet) 88 mcg PO QAM [facility] Last Admin: 04/16/21 05:54 Dose: 88 mcg Documented by: Metoprolol Tartrate (Metoprolol Tartrate 50 Mg Tablet) 50 mg PO BID@0600,1800 [facility] Last Admin: 04/16/21 05:55 Dose: 50 mg Documented by: Naloxone HCl (Naloxone 0.4 Mg/Ml Sdv) 0.1 mg IVP Q2M PRN PRN Reason: OPIATERV Nitroglycerin (Nitroglycerin 0.4 Mg Sublingual Tablet) 0.4 mg SUBLINGUAL Q5M PRN PRN Reason: Chest Pain Non-Formulary Medication (Hydroxyzine Hcl) 50 mg PO QID PRN PRN Reason: anxiety Non-Formulary Medication (Multivitamin [Daily Multi-Vitamin]) 1 tab PO QPM [facility] Promethazine HCl (Promethazine 25 Mg/Ml Sdv 1 Ml) 12.5 mg IM Q6H PRN PRN Reason: NAUSEA Last Admin: 04/12/21 19:14 Dose: 12.5 mg Documented by: Ranolazine (Ranolazine (12hr) 500 Mg Tablet) 500 mg PO BID [facility] Last Admin: 04/15/21 18:28 Dose: 500 mg Documented by: Trazodone HCl (Trazodone 100 Mg Tablet) 300 mg PO BEDTIME PRN PRN Reason: insomnia Last Admin: 04/15/21 23:49 Dose: 300 mg Documented by: Vitals/I&O/Wt Last Vital Signs Temp 98.1 F 04/16/21 03:27 Pulse 62 04/16/21 04:41 Resp 20 H 04/16/21 03:27 BP 122/92 04/16/21 03:27 Pulse Ox 90 04/16/21 03:27 04/15/21 04/16/21 04/16/21 22:59 06:59 14:59 Intake Total 360 / 1080 Output Total 1000 / 1400 Balance -640 / -320 Weight last 48 hrs Weight 117.798 kg Weight 113.852 kg Physical Exam Narrative: EXAM NARRATIVE: comfortable in bed NARD, awake and alert vs noted heent- nc/at, eomi, anicteric neck supple lungs- good air movement b/l heart- rrr, +BETSY,, s1 s2 abd soft, non tender, non distended ext - trace leg edema neuro- confused, moves all 4 extremities Data : 04/15/21 05:10 04/15/21 05:10 A&P Additional A&P Information 50 yr old man w/ EF 40-45%, severe anasarca. Pt here w/ leathrgy, weight gain. 1. CKD stage 3+ likely CRS. has had subnephrotic range proteinuria. also concern for DM -check spep/ upep -check renal us -no emergent need for dialysis 2. JESUS- cr upto 3.8 mg/dl. likely from 15 lb diuresis 3. hyponatremia and hypokalemia- likely from diuretics and JESUS 4.chf exacerbation-improved. monitro off of diuretics 5. DM control per pmd 6. BP controlled- dec meds 7. monitor hyperphosphatemia 8. can hold vit d- very high levels discussed w/ pt and RN seen and examine dw/ rN- telehealth visit Attestations Medical Necessity Statement*: jesus, AMS Time Spent in Patient Care: 16 - 35 minutes (>than 50% of time spent in counselling and/or direct pt care on unit) . Coding Level of Care Code Acute Tax Compliance Representative for Aaron Irene
[2021-04-16 08:02] LABS: ABG PCO2 49.4 mmHg (35-45); ABG PH Result 7.41 (7.35-7.45); Base Excess ABG 5.4 mmol/L (-2.0-2.0); Blood Gas Allen Test Pos; Blood Gas Sample Type Arterial; Carboxyhemoglobin 0.4 %THgb (0.4-20.1); HCO3 ABG 31.1 mmol/L (22-26); Ionized Calcium Level - ABG 1.2 mmol/L (1.1-1.4); Oxygen Saturation ABG 93.3; PO2 ABG 74.6 mmHg (80.0-100.0); Potassium Level - ABG 3.6 mmol/L (3.5-5.0); Total Hemoglobin 11.8 g/dL (14-18)
[2021-04-16 08:03] LABS: Alveolar-Arterial Oxygen Gradi 8.5 mmHg (5-10); Blood Gas Operator Identificat MONRO; Blood Gas Sample Site Radial, left; Oxygen Device NC
[2021-04-16] MEDS: insulin lispro 100 unit/1 mL SUBCUT ×4 (08:30→20:44)
[2021-04-16 10:03] LABS: Alanine Aminotransferase 11 U/L (0-41); Albumin Level 3.4 g/dL (3.5-5.2); Alkaline Phosphatase 112 IU/L (40-130); Anion Gap 17.5 (5-19); Aspartate Amino Transferase 9 U/L (0-40); Calcium 8.3 mg/dL (8.5-10.5); Carbon Dioxide 27 mmol/L (22-29); Chloride 84 mmol/L (98-107); Glomerular Filtration Rate 14.6 mL/min (90-130); Glucose 277 mg/dL (65-115); Magnesium 2.4 mg/dL (1.7-2.3); Osmolality Calculated 295 mOsm/kg (285-295); Phosphorus 6.3 mg/dL (2.5-4.5); Potassium 3.5 mmol/L (3.5-5.1); Sodium 125 mmol/L (136-145); Total Bilirubin 0.4 mg/dL (0.15-1.2); Total Protein 5.4 g/dL (6.6-8.7)
[2021-04-16 10:21] LABS: Blood Urea Nitrogen 84 mg/dL (6-20)
[2021-04-16] MEDS: enoxaparin 120 mg/0.8 mL Syringe SUBCUT (10:33)
[2021-04-16] MEDS: HYDROcodone-acetaminophen 5-325 mg Tablet 1 TAB PO (10:34)
[2021-04-16] MEDS: citalopram 20 mg Tablet 40 MG PO (10:34)
[2021-04-16] MEDS: gabapentin 300 mg Capsule 600 MG PO ×3 (10:34→20:43)
[2021-04-16] MEDS: ranolazine (12HR) 500 mg Tablet PO ×2 (10:35→17:43)
[2021-04-16] MEDS: amlodipine 5 mg Tablet PO (10:35)
--- NOTE | 2021-04-16 10:59 | PC.SOCIAL ---
IMM UPDATED IMM initialed and updated and copy given to patient
[2021-04-16 11:44] LABS: Glucose Point of Care 234 mg/dL (70-110)
--- NOTE | 2021-04-16 13:43 | PM.PN ---
Subjective Subjective: Interval history: Patient was seen and examined this morning, he was slightly drowsy today, as well as has confusion. BUN and serum creatinine has trended up. A.m. ABG was done: pH 7.41 PCO2 49 PO2:71, FiO2 28%. Patient mentation showed improvement in later half of the day. Medications: Reviewed: Yes Medication Review Details: Current Medications Acetaminophen (Acetaminophen 325 Mg Tablet) 650 mg PO Q6H PRN PRN Reason: Mild/Mod Pain Or Temp >/= 101 Hydrocodone Bitart/Acetaminophen (Hydrocodone-Acetaminophen 5-325 Mg Tablet) 1 tab PO BID PRN PRN Reason: pain Last Admin: 04/13/21 06:45 Dose: 1 tab Documented by: Amlodipine Besylate (Amlodipine 5 Mg Tablet) 10 mg PO DAILY [facility] Aspirin (Aspirin 81 Mg Ec Tablet) 81 mg PO DAILY@0600 [facility] Last Admin: 04/13/21 06:40 Dose: 81 mg Documented by: Atorvastatin Calcium (Atorvastatin 40 Mg Tablet) 40 mg PO QAM [facility] Last Admin: 04/13/21 06:40 Dose: 40 mg Documented by: Bisacodyl (Bisacodyl 5 Mg Tablet) 10 mg PO DAILY PRN; Protocol PRN Reason: Constipation (see protocol) Citalopram Hydrobromide (Citalopram 20 Mg Tablet) 40 mg PO DAILY [facility] Cyclobenzaprine HCl (Cyclobenzaprine 10 Mg Tablet) 10 mg PO TID PRN PRN Reason: MUSCLE SPASMS Enoxaparin Sodium (Enoxaparin 100 Mg/Ml Syringe) 120 mg SUBCUT DAILY [facility] Gabapentin (Gabapentin 300 Mg Capsule) 600 mg PO TID [facility] Last Admin: 04/12/21 22:14 Dose: 600 mg Documented by: Bumetanide 25 mg/ N/A 100 mls @ 8 mls/hr IV .[id number] [facility] Last Admin: 04/12/21 22:18 Dose: 2 mg/hr, 8 mls/hr Documented by: Isosorbide Mononitrate (Isosorbide Mononitrate Er 30 Mg Tablet) 30 mg PO BID@0600,1800 [facility] Last Admin: 04/13/21 06:40 Dose: 30 mg Documented by: Levothyroxine Sodium (Levothyroxine 88 Mcg Tablet) 88 mcg PO QAM [facility] Last Admin: 04/13/21 06:40 Dose: 88 mcg Documented by: Metoprolol Tartrate (Metoprolol Tartrate 50 Mg Tablet) 50 mg PO BID@0600,1800 [facility] Last Admin: 04/13/21 06:40 Dose: 50 mg Documented by: Naloxone HCl (Naloxone 0.4 Mg/Ml Sdv) 0.1 mg IVP Q2M PRN PRN Reason: OPIATERV Nitroglycerin (Nitroglycerin 0.4 Mg Sublingual Tablet) 0.4 mg SUBLINGUAL Q5M PRN PRN Reason: Chest Pain Non-Formulary Medication (Hydroxyzine Hcl) 50 mg PO QID PRN PRN Reason: anxiety Non-Formulary Medication (Multivitamin [Daily Multi-Vitamin]) 1 tab PO QPM [facility] Promethazine HCl (Promethazine 25 Mg/Ml Sdv 1 Ml) 12.5 mg IM Q6H PRN PRN Reason: NAUSEA Last Admin: 04/12/21 19:14 Dose: 12.5 mg Documented by: Ranolazine (Ranolazine (12hr) 500 Mg Tablet) 500 mg PO BID [facility] Trazodone HCl (Trazodone 100 Mg Tablet) 300 mg PO BEDTIME PRN PRN Reason: insomnia Vitals/I&O/Wt Last Vital Signs Temp 98.1 F 04/16/21 03:27 Pulse 62 04/16/21 04:41 Resp 20 H 04/16/21 03:27 BP 122/92 04/16/21 03:27 Pulse Ox 90 04/16/21 03:27 04/15/21 04/16/21 04/16/21 22:59 06:59 14:59 Intake Total 360 / 1080 360 / 360 Output Total 1000 / 1400 700 / 700 Balance -640 / -320 -340 / -340 Weight last 48 hrs Weight 117.798 kg Weight 113.852 kg Physical Exam Const: COMMON NORMALS: patient oriented x3 HENMT: COMMON NORMALS: normocephalic and atraumatic HEAD & SCALP: normocephalic and atraumatic Resp: OTHER: Bilateral diminished air entry Cardio: COMMON NORMALS: regular rate, regular rhythm, S1 normal heart sound present, S2 normal heart sound present, No gallops present (Cardio), No murmurs present (Cardio), No rub (Cardio) and Peripheral pulses 2+ throughout RATE: regular rate RHYTHM: regular rhythm HEART SOUNDS: S1 normal heart sound present and S2 normal heart sound present PERIPHERAL PULSES: Peripheral pulses 2+ throughout GI: COMMON NORMALS: Soft to palpation, non-tender, No hepatosplenomegaly present and no masses AUSCULTATION: Yes normoactive bowel sounds PALPATION: Yes Soft to palpation and Yes No hepatosplenomegaly present RECTAL EXAM: Yes deferred Extremity: NARRATIVE EXTREMITY EXAM: 1+ bilateral pitting edema present Neuro: COMMON NORMALS: patient oriented x3 Data : 04/15/21 05:10 04/16/21 09:35 A&P Assessment and plan (1) Acute kidney injury superimposed on CKD: Status: Acute (2) CHF exacerbation: Status: Acute Qualifiers: Heart failure type: systolic Qualified Code(s): I50.23 - Acute on chronic systolic (congestive) heart failure (3) Anasarca: Status: Acute (4) Hypertension: Status: Acute (5) Diabetes: Status: Acute (6) History of DVT (deep vein thrombosis): Status: Acute (7) History of pulmonary embolism: Status: Acute Additional A&P Information 50 yo man with PMHx of CAD with h/o multiple stents, HTN, HLD, h/o DVT's, PE , DM-2, CKD stage 4, hypothyroidism, heart failure with reduced infection with EF of around 40-45%, history of bilateral compartment syndrome, status post fasciotomy below-knee bilateral, recent coronary angiogram in January 2021 with patent stent and rest nonocclusive coronary artery disease came in with chief complaint of, worsening shortness of breath, orthopnea , weight gain, lethargy, and confusion. #JESUS on worsening CKD stage IV likely secondary to cardiorenal syndrome:Initially on Bumex drip, was switched to Bumex 2 MG I.V Q6H. Bumex has been stopped, as he is euvolemic, and BUN/creatinine slightly worsened. albumin one-time dose, intake output charting, daily weight, monitor electrolytes. Possibility of going on H/D during this admission. Ultrasound abdomen:No ascites. Renal ultrasound:Unremarkable kidneys and bladder #Decompensated heart failure with preserved ejection fraction: Plan as above #Hypertension: Continue amlodipine, metoprolol #Diabetes:SSI, FSG, carbohydrate consistent #History of DVT and PE: On therapeutic anticoagulation with Lovenox. Bilateral lower extremity Doppler vein: Negative for Dvt #History of hypothyroidism: Continue levothyroxine #CODE STATUS: Full code Attestations Medical Necessity Statement*: Patient in hospital for management of above defined problems. Coding Level of Care Code Acute Veneer Lathe Operator for Chg Fwd Exam Expanded Problem Focused Diagnoses Acute kidney injury superimposed on CKD N17.9; N18.9 CHF exacerbation I50.23 Heart failure type: systolic Anasarca R60.1 Hypertension I10 Diabetes E11.9 History of DVT (deep vein thrombosis) Z86.718 History of pulmonary embolism Z86.711
[2021-04-16 16:41] LABS: Glucose Point of Care 243 mg/dL (70-110)
[2021-04-16] MEDS: metoprolol tartrate 25 mg Tablet PO (17:43)
--- NOTE | 2021-04-16 19:47 | PC.NURSE ---
at morning rounds with adventure education teacher,pt was difficult to arouse from sleep.blood sugar was 255.abg obtained and unremarkable.pt aroused and stated he was just sleeping heavily.twitching of fingers ,hands and arms noted.pt states that twitching has gotten worse last couple of weeks.critical lab phoned to nurse ..bun 84 .(creat 4.3).dr griffith apprised of condition
--- NOTE | 2021-04-16 19:52 | PC.NURSE ---
pt requested that left subclavian port-a-cath be accessed for lab draws.accessed using aseptic technique.22 guage,1 inch noncoring needle used.good blood return noted.occlusive drsg applied.pt tolerated procedure well
[2021-04-16] MEDS: morphine 4 mg/mL SDV 1 mL 1 MG IVP (20:40)
[2021-04-16] MEDS: cyclobenzaprine 10 mg Tablet PO (20:43)
[2021-04-16 20:50] LABS: Glucose Point of Care 267 mg/dL (70-110)
--- NOTE | 2021-04-16 20:54 | PC.NURSE ---
pt requested that nurse call md for morphine order for his right groin pain.order obtained for 1 mg mso4 iv x 1.this was pulled from [employer] at 1735.med brought to bedside and pt stated he wanted it given prior to bedtime when pain usually flares up ...(when this nurse will not be here).mso4 given to oncoming rn,medhat (4mg/1ml).medhat gave med at bedtime..and unfortunately this nurse ended up working later than expected...and was available to waste the remaining morphine with medhat.when we attempted to waste in [employer]..machine would not let us waste the remaining 3 mg...it stated that since the dose was 1 mg..wasting 3 mg would be over the dose amt of 1 mg.attempted to call pharmacy for assistance..but there was no answer.since this was a 1 time dose...the Pneuronus would have made this unavailable after 1 hour..had the med been returned.
--- NOTE | 2021-04-16 20:56 | PC.NURSE ---
Patient morphine needed waste of 3 mg. Wasted appropriate amount with Mary Anne Jarvis however [employer] was not allowing us to put in correct amount of waste. Patient given one mg as ordered IV.
--- NOTE | 2021-04-16 23:35 | PC.NURSE ---
Patient rang call mcguire and stated that he had fallen. Was attempting to remove his cell phone from the supercharger repair supervisor on the fall. Patient states that he fell to his left side. No loc and did not hit his head. Notified nursing refractory products supervisor and MD. Patient aware. Will wait for further orders from . VSS[facility]
[2021-04-17] VITALS (7 sets, daily range): BP systolic 142–161; BP diastolic 71–75; PULSE 70–76; RESP 15–18; TEMP 36.2–37.3; O2SAT 93–96
[2021-04-17] MEDS: atorvastatin 40 mg Tablet PO (04:44)
[2021-04-17] MEDS: levothyroxine 88 mcg Tablet PO (04:44)
[2021-04-17] MEDS: aspirin 81 mg EC Tablet PO (04:45)
[2021-04-17] MEDS: isosorbide mononitrate ER 30 mg Tablet PO (04:50)
[2021-04-17] MEDS: metoprolol tartrate 25 mg Tablet PO (04:51)
[2021-04-17 05:03] LABS: Basophils # 0.1 10^3/uL (0.0-0.1); Basophils % 0.7 %; Eosinophils # 0.2 10^3/uL (0.0-0.8); Eosinophils % 2.8 %; Hematocrit 30.1 % (42.0-52.0); Hemoglobin 10.3 g/dL (11.7-16.6); Lymphocytes # 1.5 10^3/uL (0.8-4.8); Lymphocytes % 18.7 %; Mean Corpuscular HGB Conc 34.2 g/dL (30.0-36.0); Mean Corpuscular Hemoglobin 29.2 pg (28.0-34.0); Mean Corpuscular Volume 85.3 fl (80-94); Mean Platelet Volume 9.9 fL (7.4-10.4); Monocytes # 0.9 10^3/uL (0.2-0.9); Monocytes % 10.6 %; Neutrophils # 5.41 10^3/uL (1.8-7.7); Nucleated Red Blood Cells % 0 %; Platelet Count 234 10^3/cmm (130-400); Red Blood Count 3.53 10^6/uL (4.1-5.3); Red Cell Distribution Width 14.2 % (12.1-15.1); White Blood Count 8.1 10^3/uL (4.0-10.0)
[2021-04-17 05:37] LABS: Alanine Aminotransferase 11 U/L (0-41); Albumin Level 3.2 g/dL (3.5-5.2); Alkaline Phosphatase 104 IU/L (40-130); Anion Gap 16.3 (5-19); Aspartate Amino Transferase 10 U/L (0-40); Calcium 8.2 mg/dL (8.5-10.5); Carbon Dioxide 27 mmol/L (22-29); Chloride 87 mmol/L (98-107); Glomerular Filtration Rate 15.8 mL/min (90-130); Glucose 161 mg/dL (65-115); Magnesium 2.5 mg/dL (1.7-2.3); Osmolality Calculated 296 mOsm/kg (285-295); Phosphorus 6.2 mg/dL (2.5-4.5); Potassium 3.3 mmol/L (3.5-5.1); Sodium 127 mmol/L (136-145); Total Bilirubin 0.4 mg/dL (0.15-1.2); Total Protein 5.2 g/dL (6.6-8.7)
[2021-04-17 05:56] LABS: Blood Urea Nitrogen 92 mg/dL (6-20)
[2021-04-17 06:41] LABS: Glucose Point of Care 215 mg/dL (70-110)
--- NOTE | 2021-04-17 06:48 | PC.NURSE ---
Frequent safety and comfort rounds continue. Orders and/or nursing care completed as indicated. Patient monitored for response to intervention and treatment(s). Education provided includes not getting out of bed unless assistance is available as he is a fall risk and had a fall last evening. Patient and/or telephone sales representative verbalized understanding. Will continue to monitor.
--- NOTE | 2021-04-17 07:46 | P.PN_ITS ---
Subjective Subjective: Interval history: feels better. still has some edema. no n/v/f/c/palomo/d/cp/palomo Medications: Reviewed: Yes Medication Review Details: Current Medications Acetaminophen (Acetaminophen 325 Mg Tablet) 650 mg PO Q6H PRN PRN Reason: Mild/Mod Pain Or Temp >/= 101 Last Admin: 04/16/21 05:56 Dose: 650 mg Documented by: Amlodipine Besylate (Amlodipine 5 Mg Tablet) 5 mg PO DAILY [facility] Last Admin: 04/16/21 10:35 Dose: 5 mg Documented by: Aspirin (Aspirin 81 Mg Ec Tablet) 81 mg PO DAILY@0600 [facility] Last Admin: 04/17/21 04:45 Dose: 81 mg Documented by: Atorvastatin Calcium (Atorvastatin 40 Mg Tablet) 40 mg PO QAM [facility] Last Admin: 04/17/21 04:44 Dose: 40 mg Documented by: Bisacodyl (Bisacodyl 5 Mg Tablet) 10 mg PO DAILY PRN; Protocol PRN Reason: Constipation (see protocol) Citalopram Hydrobromide (Citalopram 20 Mg Tablet) 40 mg PO DAILY [facility] Last Admin: 04/16/21 10:34 Dose: 40 mg Documented by: Cyclobenzaprine HCl (Cyclobenzaprine 10 Mg Tablet) 10 mg PO TID PRN PRN Reason: MUSCLE SPASMS Last Admin: 04/16/21 20:43 Dose: 10 mg Documented by: Dextrose (Dextrose 50% Syringe 50 Ml) 25 ml IVP ONCE PRN; Protocol PRN Reason: hypoglycemia protocol Dextrose (Dextrose 50% Syringe 50 Ml) 50 ml IVP PRN PRN; Protocol PRN Reason: hypoglycemia protocol Enoxaparin Sodium (Enoxaparin 120 Mg/0.8 Ml Syringe) 120 mg SUBCUT DAILY [facility] Last Admin: 04/16/21 10:33 Dose: 120 mg Documented by: Gabapentin (Gabapentin 300 Mg Capsule) 600 mg PO TID [facility] Last Admin: 04/16/21 20:43 Dose: 600 mg Documented by: Glucagon (Glucagon 1 Mg/Ml Inj 1 Ml) 1 mg IM ONCE PRN; Protocol PRN Reason: Adult Acute Hypoglycemia Prot. Dextrose (D5w) 500 mls @ 100 mls/hr IV ONCE PRN; Protocol PRN Reason: Adult Acute Hypoglycemia Prot Insulin Human Lispro (Insulin Lispro 100 Unit/1 Ml) 0 unit SUBCUT WM&BEDTIME [facility]; Protocol Last Admin: 04/16/21 20:44 Dose: 8 unit Documented by: Isosorbide Mononitrate (Isosorbide Mononitrate Er 30 Mg Tablet) 30 mg PO BID@06 00,1800 [facility] Last Admin: 04/17/21 04:50 Dose: 30 mg Documented by: Levothyroxine Sodium (Levothyroxine 88 Mcg Tablet) 88 mcg PO QAM [facility] Last Admin: 04/17/21 04:44 Dose: 88 mcg Documented by: Metoprolol Tartrate (Metoprolol Tartrate 25 Mg Tablet) 25 mg PO BID@0600,1800 [facility] Last Admin: 04/17/21 04:51 Dose: 25 mg Documented by: Naloxone HCl (Naloxone 0.4 Mg/Ml Sdv) 0.1 mg IVP Q2M PRN PRN Reason: OPIATERV Nitroglycerin (Nitroglycerin 0.4 Mg Sublingual Tablet) 0.4 mg SUBLINGUAL Q5M AR N PRN Reason: Chest Pain Non-Formulary Medication (Hydroxyzine Hcl) 50 mg PO QID PRN PRN Reason: anxiety Non-Formulary Medication (Multivitamin [Daily Multi-Vitamin]) 1 tab PO QPM [facility] Promethazine HCl (Promethazine 25 Mg/Ml Sdv 1 Ml) 12.5 mg IM Q6H PRN PRN Reason: NAUSEA Last Admin: 04/12/21 19:14 Dose: 12.5 mg Documented by: Ranolazine (Ranolazine (12hr) 500 Mg Tablet) 500 mg PO BID [facility] Last Admin: 04/16/21 17:43 Dose: 500 mg Documented by: Trazodone HCl (Trazodone 100 Mg Tablet) 300 mg PO BEDTIME PRN PRN Reason: insomnia Last Admin: 04/15/21 23:49 Dose: 300 mg Documented by: Vitals/I&O/Wt Last Vital Signs Temp 98 F 04/17/21 04:00 Pulse 71 04/17/21 05:36 Resp 16 04/17/21 04:00 BP 144/71 04/17/21 04:00 Pulse Ox 94 04/17/21 04:00 04/16/21 04/17/21 04/17/21 22:59 06:59 14:59 Intake Total 480 / 840 500 / 1340 Output Total 300 / 1000 250 / 1250 Balance 180 / -160 250 / 90 Weight last 48 hrs Weight 118.524 kg Weight 117.798 kg Weight 113.852 kg Physical Exam Narrative: EXAM NARRATIVE: comfortable in bed NARD, awake and alert vs noted and stable heent- nc/at, eomi, anicteric neck supple lungs- poor air movement b/l heart- rrr, +BETSY,, s1 s2 abd soft, non tender, non distended ext - 1+ b/l leg edema neuro- a,a, o x 3, moves all 4 extremities Data : 04/17/21 04:19 04/17/21 04:19 A&P Additional A&P Information 50 yr old man w/ EF 40-45%, severe anasarca. Pt here w/ leathrgy, weight gain. 1. CKD stage 3+ likely CRS. has had subnephrotic range proteinuria. also concern for DM -check spep/ upep -check renal us -no emergent need for dialysis 2. JESUS- cr up to 4 mg/dl. likely from 15 lb diuresis- cr appears to have stablized -on d/c, pt needs to weigh himself daily to adjust his diuretics 3. hyponatremia and hypokalemia- likely from diuretics and JESUS -free water restrict -if needs diuretics, may need tolvaptan to keep na > 130 4.chf exacerbation-improved. monitor weight and adjust diuretics -needs close renal and cardiology f/u as outpt 5. DM control per pmd 6. BP controlled- cont meds 7. monitor hyperphosphatemia - binders 8. can hold vit d- very high levels discussed w/ pt and RN seen and examined w/ rN- telehealth visit Attestations Medical Necessity Statement*: jesus, hyponatremia Time Spent in Patient Care: 16 - 35 minutes (>than 50% of time spent in counselling and/or direct pt care on unit) . Coding Level of Care Code Acute [employer] Operator for Aaron Irene
[2021-04-17] MEDS: insulin lispro 100 unit/1 mL SUBCUT ×2 (08:53→13:23)
[2021-04-17] MEDS: amlodipine 5 mg Tablet PO (08:55)
[2021-04-17] MEDS: ranolazine (12HR) 500 mg Tablet PO (08:55)
[2021-04-17] MEDS: calcium acetate 667 mg Capsule PO (08:55)
[2021-04-17] MEDS: potassium chloride ER 20 mEq Tablet 40 MEQ PO (08:55)
[2021-04-17] MEDS: enoxaparin 120 mg/0.8 mL Syringe SUBCUT (08:55)
[2021-04-17] MEDS: citalopram 20 mg Tablet 40 MG PO (08:55)
[2021-04-17] MEDS: gabapentin 300 mg Capsule 600 MG PO ×2 (08:55→16:13)
[2021-04-17 12:02] LABS: Glucose Point of Care 308 mg/dL (70-110)
--- NOTE | 2021-04-17 14:13 | P.DS_ITS ---
Discharge Providers Date of Admission: 04/13/21 01:59 Date of Discharge: April 17, 2021 Attending Provider at Admission: Eric Davey MD Attending Provider at Discharge: Jaydon Juarez MD Primary Care Provider: Kp Montanez DO Diagnoses at Discharge Discharge Diagnosis (1) Acute kidney injury superimposed on CKD: Status: Acute (2) CHF exacerbation: Status: Acute Qualifiers: Heart failure type: systolic Qualified Code(s): I50.23 - Acute on chronic systolic (congestive) heart failure (3) Anasarca: Status: Acute (4) Hypertension: Status: Acute (5) Diabetes: Status: Acute (6) History of DVT (deep vein thrombosis): Status: Acute (7) History of pulmonary embolism: Status: Acute Reason for Visit Reason for Visit: [place] Hospital Course Hospital Course This is a 50-year-old male with a past medical history of CAD status post stenting x3, history of systolic CHF, insulin-dependent type 2 diabetes mellitus, GERD, CKD, DVT and pulmonary embolism on Eliquis, history of EF of 40 to 45%, who presents [facility] due to shortness of breath, weight gain Patient was so admitted to [facility] for shortness of breath, secondary to decompensated heart failure, heart failure with decreased ejection fraction, with JESUS, with concerns for cardiorenal syndrome, received inpatient diuresis, diuresed over 7 L net. Patient developed JESUS, creatinine as high as 4.3, nephrology service was consulted, continues to have good urine output, diuresis was held. On discharge creatinine was 4.0, will have patient follow-up with nephrology service in [place], patient is currently under evaluation for dialysis. In terms of his diuresis, patient should have his recheck creatinine on Saturday, if his creatinine is below 3, can resume low-dose Bumex at 1 mg daily. Titrate Bumex based on creatinine as outpatient, through primary care. Physical Exam Const: COMMON NORMALS: no acute distress and patient oriented x3 Resp: COMMON NORMALS: normal respiratory effort, No retractions, No use of accessory muscles and clear to auscultation bilaterally AUSCULTATION: clear to auscultation bilaterally Cardio: COMMON NORMALS: regular rate, regular rhythm, S1 normal heart sound present and S2 normal heart sound present RATE: regular rate RHYTHM: regular rhythm HEART SOUNDS: S1 normal heart sound present and S2 normal heart sound present GI: COMMON NORMALS: Normal to inspection, nondistended, normoactive bowel sounds present, Soft to palpation and non-tender PALPATION: Yes Soft to palpation Extremity: COMMON NORMALS: no pedal edema Neuro: COMMON NORMALS: patient oriented x3 Psych: COMMON NORMALS: mental status grossly normal Discharge Data Data Completed and Pending: Completed Studies During Hospitalization Category Date Time Status CT cervical spin wo con* [id number] Urge nt Cat Scan 04/12/21 14:[address] head wo con* [id number] Urgent Cat Scan 04/12/21 14:50 Completed XR chest 1V [place] [id number] Urgent Exams 04/12/21 18:23 [place] [id number] Urgent Ultrasound 04/13/21 18:56 Completed CV. echo complete * [id number] Urgent Ultrasound 04/13/21 18:56 [place] [id number] Urgent Ultrasound 04/13/21 18:56 Completed US renal BI* [id number] Urgent Ultrasound 04/13/21 18:56 Completed Pending at discharge Category Date Time Status CASEY Screen w/ Ref phylicia Routine Lab 04/13/21 07:07 Received Complete Blood Co unt w/Auto AM LABS Lab 04/18/21 04:00 Ordered Complete Blood Co unt w/Auto AM LABS Lab 04/19/21 04:00 Ordered Comprehensive Met abolic Panel AM LA BS Lab 04/18/21 04:00 Ordered Comprehensive Met abolic Panel AM LA BS Lab 04/19/21 04:00 Ordered Magnesium AM LABS Lab 04/18/21 04:00 Ordered Magnesium AM LABS Lab 04/19/21 04:00 Ordered Phosphorus AM LAB S Lab 04/18/21 04:00 Ordered Phosphorus AM LAB S Lab 04/19/21 04:00 Ordered Vitamin D 1,25 Di hydroxy Routine Lab 04/13/21 07:07 Received Labs from last 24 hours 04/17/21 04/17/21 04/17/21 11:58 06:34 04:19 WBC RBC Hgb Hct MCV MCH MCHC RDW Plt Count MPV Neut % (Auto) Lymph % (Auto) [place] % (Auto) Eos % (Auto) Baso % (Auto) Neut # (Auto) Lymph # (Auto) [place] # (Auto) Eos # (Auto) Baso # (Auto) Nucleated RBC % (a uto) Nucleated RBCs # Sodium 127 L Potassium 3.3 L Chloride 87 L Carbon Dioxide 27 Anion Gap 16.3 BUN 92 H* Creatinine 4.0 H GFR Calculation 15.8 L Glucose 161 H POC Glucose 308 H 215 H Calculated Osmolal ity 296 H Calcium 8.2 L Phosphorus 6.2 H Magnesium 2.5 H Total Bilirubin 0.4 AST 10 ALT 11 Alkaline Phosphata se 104 Total Protein 5.2 L Albumin 3.2 L Globulin 2.0 04/17/21 04/16/21 04/16/21 04:19 20:09 16:35 WBC 8.1 RBC 3.53 L Hgb 10.3 L Hct 30.1 L MCV 85.3 MCH 29.2 MCHC 34.2 RDW 14.2 Plt Count 234 MPV 9.9 Neut % (Auto) 67.0 Lymph % (Auto) 18.7 [place] % (Auto) 10.6 Eos % (Auto) 2.8 Baso % (Auto) 0.7 Neut # (Auto) 5.41 Lymph # (Auto) 1.5 [place] # (Auto) 0.9 Eos # (Auto) 0.2 Baso # (Auto) 0.1 Nucleated RBC % (a uto) 0 Nucleated RBCs # 0.0 Sodium Potassium Chloride Carbon Dioxide Anion Gap BUN Creatinine GFR Calculation Glucose POC Glucose 267 H 243 H Calculated Osmolal ity Calcium Phosphorus Magnesium Total Bilirubin AST ALT Alkaline Phosphata se Total Protein Albumin Globulin Vitals: Last Vital Signs Temp 99.1 F 04/17/21 08:00 Pulse 71 04/17/21 08:00 Resp 18 04/17/21 08:00 BP 142/73 04/17/21 08:00 Pulse Ox 93 04/17/21 08:00 Discharge Plan Discharge Patient Disposition: Home Condition: Stable Prescriptions: New calcium acetate [Calphron] 667 mg Tablet 667 mg PO TIDWM 30 Days Qty: 90 RF: 0 Continued multivitamin [Daily Multi-Vitamin] Tablet 1 tab PO QPM RF: 0 Trulicity 0.75 mg/0.5 mL pen injector 0.75 mg SUBCUT Q7D RF: 0 aspirin 81 mg tablet,delayed release (DR/EC) 81 mg PO DAILY@0600 RF: 0 promethazine 25 mg tablet 25 mg PO Q6H PRN (Reason: Pain) RF: 0 hydrocodone-acetaminophen 5-325 mg tablet 1 tab PO BID PRN (Reason: pain) 30 Days Qty: 30 RF: 0 gabapentin 600 mg tablet 600 mg PO TID Qty: 90 RF: 0 nitroglycerin [Nitrostat] 0.4 mg tablet, sublingual 0.4 mg SUBLINGUAL Q5M PRN (Reason: Chest Pain) Qty: 25 RF: 2 hydroxyzine HCl 50 mg tablet 50 mg PO QID PRN (Reason: anxiety) Qty: 120 RF: 2 insulin lispro [Humalog U-100 Insulin] 100 unit/mL solution See Rx Instructions .ROUTE .COMPLEX RF: 0 citalopram 40 mg tablet 40 mg PO DAILY RF: 0 Eliquis 5 mg tablet 5 mg PO Q12H Qty: 60 RF: 0 cyclobenzaprine 10 mg tablet 10 mg PO TID PRN (Reason: MUSCLE SPASMS) RF: 0 isosorbide mononitrate 30 mg tablet extended release 24 hr 30 mg PO BID@0600,1800 RF: 0 atorvastatin 40 mg tablet 40 mg PO QAM RF: 0 ranolazine 500 mg tablet extended release 12 hr 500 mg PO BID RF: 0 levothyroxine 88 mcg tablet 88 mcg PO QAM RF: 0 Tresiba FlexTouch U-200 200 unit/mL (3 mL) insulin pen 22 unit SUBCUT BEDTIME RF: 0 trazodone 100 mg tablet 300 mg PO BEDTIME PRN (Reason: insomnia) RF: 0 Changed metoprolol tartrate 50 mg tablet 25 mg PO BID@0600,1800 Qty: 0 RF: 0 amlodipine 5 mg Tablet 5 mg PO DAILY Qty: 0 RF: 0 Discontinued potassium chloride [Klor-Con M20] 20 mEq tablet,ER particles/crystals 20 meq PO QAM RF: 0 bumetanide 2 mg tablet 2 mg PO BID RF: 0 Discharge Orders: Discharge Order (Routine); Ordered 04/17/21 Ordered By: Jaydon Juarez Referrals: Kp Montanez DO [Primary Care Provider] - Discharge Diet: Cardiac Discharge Activity: Resume usual activity Patient Instructions: Opioid Safety Activity Restrictions/Additional Instructions: -Please hold Bumex and potassium until Saturday -Please see Dr. Montanez on Saturday -Recheck creatinine on Saturday, creatinine on discharge was 4.0 -If creatinine is less than 3 can resume low-dose Bumex 1 mg daily -If creatinine is greater than 3 would hold Bumex until Saturday -Recheck creatinine on Saturday -Slowly reinstitute Bumex with potassium -Follow-up with nephrology service in [place] Discharge Attestations Time Spent in Discharge Care*: less than 30 min Status at Discharge: Cognitive status at discharge: cognitively intact , Behavioral status at discharge: cooperative and independent in ADL's , Quality Metrics Clinical Quality Measures During this hospital stay, did patient experience: None Coding Level of Care Code Acute g DC note Diagnoses Acute kidney injury superimposed on CKD N17.9; N18.9 CHF exacerbation I50.23 Heart failure type: systolic Anasarca R60.1 Hypertension I10 Diabetes E11.9 History of DVT (deep vein thrombosis) Z86.718 History of pulmonary embolism Z86.711
[2021-04-17 16:02] LABS: Anti-Nuclear Antibody Screen NEGATIVE (NEGATIVE)
[2021-04-18 10:49] LABS: Vit D 1,25 (Oh)2, Total 13 pg/mL (18-72); Vit D2 1,25 (Oh)2 <8 pg/mL; Vit D3 1,25 (Oh)2 13 pg/mL
== END 2021-04-17 16:30 | disposition home health service (06) | DRG 291 ==
LOC: ER 23:07 → ICU 04-13 01:59 → CSU 04-13 17:33
PROVIDERS: Internal Medicine Nephrology; Admitting Provider Internal Medicine; Emergency Provider Emergency Medicine; PCP Internal Medicine; Visit Provider Family Medicine
DX: I13.0 Hypertensive heart and chronic kidney disease with heart failure and stage 1 through stage 4 chronic kidney disease, or unspecified chronic kidney disease (principal); I50.23 Acute on chronic systolic (congestive) heart failure; N18.4 Chronic kidney disease, stage 4 (severe); F33.9 Major depressive disorder, recurrent, unspecified; Z68.41 Body mass index [BMI] 40.0-44.9, adult; N17.9 Acute kidney failure, unspecified; E11.22 Type 2 diabetes mellitus with diabetic chronic kidney disease; I25.10 Atherosclerotic heart disease of native coronary artery without angina pectoris; Z95.5 Presence of coronary angioplasty implant and graft; D63.1 Anemia in chronic kidney disease; I25.2 Old myocardial infarction; Z86.718 Personal history of other venous thrombosis and embolism; Z86.711 Personal history of pulmonary embolism; E78.5 Hyperlipidemia, unspecified; E03.9 Hypothyroidism, unspecified; I25.5 Ischemic cardiomyopathy; E66.8 Other obesity; K40.90 Unilateral inguinal hernia, without obstruction or gangrene, not specified as recurrent; Z79.891 Long term (current) use of opiate analgesic; Z79.01 Long term (current) use of anticoagulants; Z79.4 Long term (current) use of insulin; Z79.899 Other long term (current) drug therapy
CPT/HCPCS: 36415; 36416; 36591; 36592; 36600; 70450; 71045; 72125; 76705; 76770; 80048; 80051; 80053; 81001; 82140; 82306; 82310; 82330; 82652; 82803; 82805; 82962; 83690; 83735; 83880; 83970; 84100; 84439; 84443; 84484; 84550; 85025; 85610; 85730; 86038; 93005; 93306; 93970; 96365; 96372; 96375; 97161; 97165; 97530; 99285; J1642; J1650; J1815; J1940; J2270; J2550; J3490; P9047; Q3014

== ENCOUNTER 2021-04-19 11:23 | Outpatient (CLI) | payer MEDICARE, MEDICAID, SELFPAY ==
[2021-04-19 11:57] VITALS: BMI 39.2
[2021-04-19 15:33] LABS: Anion Gap 16.5 (5-19); Blood Urea Nitrogen 76 mg/dL (6-20); Calcium 8.6 mg/dL (8.5-10.5); Carbon Dioxide 31 mmol/L (22-29); Chloride 96 mmol/L (98-107); Glomerular Filtration Rate 19.8 mL/min (90-130); Glucose 321 mg/dL (65-115); Osmolality Calculated 325 mOsm/kg (285-295); Potassium 3.5 mmol/L (3.5-5.1); Sodium 140 mmol/L (136-145)
== END 2021-04-19 11:24 | disposition home or self-care (01) ==
LOC: LAB 11:27
PROVIDERS: PCP Internal Medicine; Visit Provider Internal Medicine
DX: I50.9 Heart failure, unspecified (principal)
CPT/HCPCS: 36591; 80048; 96523

== ENCOUNTER → 2021-04-20 11:02 | Outpatient (BNVA) | payer MEDICARE, MEDICAID, SELFPAY | PROVIDERS: PCP Internal Medicine; Visit Provider Anesthesiology Pain Medicine | DX: G89.29 Other chronic pain (principal); R10.31 Right lower quadrant pain; M16.0 Bilateral primary osteoarthritis of hip; E11.42 Type 2 diabetes mellitus with diabetic polyneuropathy; M21.371 Foot drop, right foot; M53.3 Sacrococcygeal disorders, not elsewhere classified; M51.9 Unspecified thoracic, thoracolumbar and lumbosacral intervertebral disc disorder; Z79.891 Long term (current) use of opiate analgesic | CPT/HCPCS: 99214 ==

== ENCOUNTER → 2021-04-21 12:26 | Day surgery (SDC) | payer MEDICARE, MEDICAID, SELFPAY ==
[2021-04-21 12:36] VITALS: BP 136/88; PULSE 65; RESP 18; TEMP 36.1; O2SAT 99
[2021-04-21 13:40] LABS: Anion Gap 19.2 (5-19); Blood Urea Nitrogen 72 mg/dL (6-20); Calcium 9.1 mg/dL (8.5-10.5); Carbon Dioxide 27 mmol/L (22-29); Chloride 100 mmol/L (98-107); Glucose 232 mg/dL (65-115); Osmolality Calculated 323 mOsm/kg (285-295); Potassium 4.2 mmol/L (3.5-5.1); Sodium 142 mmol/L (136-145)
== END ==
PROVIDERS: PCP Internal Medicine; Visit Provider Internal Medicine
DX: I50.9 Heart failure, unspecified (principal)
CPT/HCPCS: 36591; 80048

== ENCOUNTER → 2021-04-24 08:01 | Day surgery (SDC) | payer MEDICARE, MEDICAID, SELFPAY ==
[2021-04-24 08:04] VITALS: BMI 40.4
[2021-04-24 08:10] VITALS: BP 142/60; PULSE 77; RESP 18; TEMP 36.1; O2SAT 96
--- NOTE | 2021-04-24 08:29 | PC.NURSE ---
port a cath placement for lab draw and port flush
[2021-04-24 09:23] LABS: Anion Gap 19.3 (5-19); Blood Urea Nitrogen 53 mg/dL (6-20); Calcium 7.9 mg/dL (8.5-10.5); Carbon Dioxide 24 mmol/L (22-29); Chloride 101 mmol/L (98-107); Glomerular Filtration Rate 27.3 mL/min (90-130); Glucose 185 mg/dL (65-115); Osmolality Calculated 309 mOsm/kg (285-295); Potassium 4.3 mmol/L (3.5-5.1); Sodium 140 mmol/L (136-145)
== END ==
PROVIDERS: PCP Internal Medicine; Visit Provider Internal Medicine
DX: I50.42 Chronic combined systolic (congestive) and diastolic (congestive) heart failure (principal); N18.4 Chronic kidney disease, stage 4 (severe)
CPT/HCPCS: 36591; 80048; 96523

== ENCOUNTER → 2021-05-05 10:03 | Day surgery (SDC) | payer MEDICARE, MEDICAID, SELFPAY ==
[2021-05-05 10:29] VITALS: BP 138/82; PULSE 81; RESP 18; TEMP 36.9; O2SAT 95
[2021-05-05 11:23] LABS: Anion Gap 16.9 (5-19); Blood Urea Nitrogen 38 mg/dL (6-20); Calcium 8.1 mg/dL (8.5-10.5); Carbon Dioxide 24 mmol/L (22-29); Chloride 103 mmol/L (98-107); Glomerular Filtration Rate 28.6 mL/min (90-130); Glucose 146 mg/dL (65-115); Osmolality Calculated 302 mOsm/kg (285-295); Potassium 3.9 mmol/L (3.5-5.1); Sodium 140 mmol/L (136-145)
== END ==
PROVIDERS: Internal Medicine Nephrology; PCP Internal Medicine; Visit Provider Internal Medicine
DX: N18.4 Chronic kidney disease, stage 4 (severe) (principal)
CPT/HCPCS: 36591; 80048

== ENCOUNTER 2021-05-12 14:42 | Observation (INO) | payer MEDICARE, MEDICAID, SELFPAY ==
[2021-05-12] VITALS (7 sets, daily range): BP systolic 126–147; BP diastolic 65–78; PULSE 60–79; RESP 16–18; TEMP 36.9–37.1; O2SAT 89–94; BMI 42.3
--- NOTE | 2021-05-12 14:47 | ED_ITS ---
HPI - Chest Pain General: Chief Complaint: Chest Pain Stated Complaint: CHEST PAIN/ RETAINING WATER Time Seen by Provider: 05/12/21 14:44 History of Present Illness: HPI narrative: Mr. Queen is a 50-year-old gentleman with complex past medical history including combined heart failure with recent estimated EF 35%, diabetes, hypertension, hyperlipidemia, CKD who presents to the emergency department due to concern of fluid overload. He reports over the past few months he has had extreme difficulty losing weight despite medication compliance and diet. He has been compliant with his medication regiment as instructed. He was recently hospitalized for cardiorenal syndrome and diuresed and has follow-up with cardiology. Despite all this he still feels worse. He feels volume overloaded primarily with fluid fullness in his abdomen as well as lower extremities. He endorses chest pain approximately 1 hour prior to arrival which was pressure in the left anterior chest with radiation down the arm and up to the jaw. No other typical cardiac features. He does have a history of similar episodes of chest pain. Additionally he endorses chronic abdominal pain for which he follows at outside facility and has operative management planned for nerve related pain or other procedure. Overall the intensity symptoms is moderate. Course has improved with nitroglycerin. No other specific changes in health, infectious symptoms, exacerbating or relieving factors. Review of Systems General: Reports: 10 or more systems reviewed and unremarkable except in HPI and below PFSH ED PFSH: Medical History Acute exacerbation of CHF (congestive heart failure) Anemia Atherosclerotic heart disease of [place] coronary artery with other forms of angina pectoris hx of CAD with prior stenting of proximal LAD, LCx, RCA Chronic anticoagulation Eliquis Chronic kidney disease -baseline Cr appears to be around 1.5 Chronic systolic heart failure EF=47%, diffuse LV hypokinesis, mildly increased LA size Depression Diabetes A1c-7.6 (08/2019) Foot drop, left GERD (gastroesophageal reflux disease) H/O acute myocardial infarction H/O deep venous thrombosis developed compartment syndrome Hyperlipidemia Hypertension Hypothyroidism Ischemic cardiomyopathy Major depressive disorder, recurrent severe without psychotic features Obesity (BMI 30-39.9) Osteoarthritis of spine Psychiatric care Recent weight gain Surgical History H/O colonoscopy (11/14/20) 08/2015 H/O esophagogastroduodenoscopy (11/14/20) 08/2015 H/O removal of testicle left H/O skin graft H/O vasectomy History of appendectomy 1995 History of coronary artery stent placement 5x History of excision of mass 06/08/2019: Subcutaneous mass on back History of inguinal hernia repair, bilateral 1999 History of removal of Port-a-Cath Hx of cholecystectomy Port-A-Cath in place Family History Grandfather Cancer skin cancer Parkinson disease Brother Hypertension Father Heart disease Mother Hypertension Stroke Aneurysm Grandmother Aneurysm Other Crohn disease Denies family history of Anesthesia complication Bleeding disorder Social History Smoking and tobacco status: never smoked Second hand smoke exposure: No Alcohol intake: former Former alcohol use details: Only holidays Lives independently: Yes Household members: significant other Marital status: Single Current occupational status: disabled History of recent travel: No Physical Exam Narrative: EXAM NARRATIVE: GENERAL/CONSTITUTIONAL -mildly ill-appearing. Obese. Eyes -no scleral icterus, no conjunctival injection ENMT - Atraumatic external nose and ears. Moist mucous membranes NECK - supple. trachea midline CARDIOVASCULAR - regular rate and rhythm. 1-2+ pitting edema symmetric bilaterally. RESPIRATORY -diminished to auscultation bilaterally. No retractions or accessory muscle use. ABDOMEN/GI - Nontender/Nondistended. MSK - Extremities without obvious deformity or tenderness to palpation SKIN - Warm, Dry NEURO - alert and appropriately oriented. Moves all extremities equally. Course ED course: - Patient was seen and evaluated by me at bedside - Patient placed on cardiac monitors, IV access obtained - Initial evaluation notable for evidence of volume overload as noted above - Labs notable for mild leukocytosis without infectious symptoms noted in HPI. Metabolic panel with CKD, variable baseline. Negative 2-hour troponin. BNP elevated - Imaging notable for no lobar consolidation - Upon serial reexamination after treatment the patient was similar - Based on patient history, evaluation, labs, and imaging as interpreted the most likely cause of the patient's condition is acute on chronic heart failure in the context of complex history including heart failure with reduced ejection fraction and CKD. Discussed with cardiology though not formally consulted, challenging situation that requires inpatient management given comorbidities and failure of outpatient management. - The results of ED evaluation were discussed with the patient including plan for admission due to requirement for level of care not available if discharged to prevent significant worsening/deterioration. -Hospitalist service contacted and agreed admit the patient - Patient was admitted without further deterioration or significant events. Vital Signs: Vital signs: Vital Signs Temperature 98.3 F 05/14/21 11:18 Pulse Rate 69 05/14/21 11:18 Respiratory Rate 17 05/14/21 11:18 Blood Pressure 131/86 05/14/21 11:18 Pulse Oximetry 94 05/14/21 13:59 MDM - Chest Pain Medical Records: Attestation: I reviewed the patient's medical records. Lab Data: Attestation: I reviewed the patient's lab results. Labs: Lab Results 05/12/21 05/12/21 05/12/21 16:09 16:09 16:09 WBC 10.4 10^3/uL H 10 ^3/uL (4.0-10.0) RBC 3.86 10^6/uL L 10 ^6/uL (4.1-5.3) Hgb 11.7 g/dL g/dL (11.7-16.6) Hct 33.6 % L % (42.0-52.0) MCV 87.0 fl fl (80-94) MCH 30.3 pg pg (28.0-34.0) MCHC 34.8 g/dL g/dL (30.0-36.0) RDW 14.9 % % (12.1-15.1) Plt Count 254 10^3/cmm 10^3 /cmm (130-400) MPV 9.4 fL fL (7.4-10.4) Neut % (Auto) 74.3 % % Lymph % (Auto) 12.9 % % [place] % (Auto) 10.5 % % Eos % (Auto) 1.0 % % Baso % (Auto) 0.8 % % Neut # (Auto) 7.75 10^3/uL H 10 ^3/uL (1.8-7.7) Lymph # (Auto) 1.3 10^3/uL 10^3/ uL (0.8-4.8) [place] # (Auto) 1.1 10^3/uL H 10^ 3/uL (0.2-0.9) Eos # (Auto) 0.1 10^3/uL 10^3/ uL (0.0-0.8) Baso # (Auto) 0.1 10^3/uL 10^3/ uL (0.0-0.1) Nucleated RBC % (a uto) 0 % % Nucleated RBCs # 0.0 /100WBC /100W BC Sodium 136 mmol/L mmol/L (136-145) Potassium 3.5 mmol/L mmol/L (3.5-5.1) Chloride 96 mmol/L L mmol/ L (98-107) Carbon Dioxide 24 mmol/L mmol/L (22-29) Anion Gap 19.5 H (5-19) BUN 49 mg/dL H mg/dL (6-20) Creatinine 3.0 mg/dL H mg/dL (0.7-1.2) GFR Calculation 22.1 mL/min L mL/ min (90-130) Glucose 155 mg/dL H mg/dL (65-115) Calculated Osmolal ity 298 mOsm/kg H mOs m/kg (285-295) Calcium 8.6 mg/dL mg/dL (8.5-10.5) Total Bilirubin 0.4 mg/dL mg/dL (0.15-1.2) AST 18 U/L U/L (0-40) ALT 14 U/L U/L (0-41) Alkaline Phosphata se 137 IU/L H IU/L (40-130) Troponin T Baselin e 56 ng/L H ng/L (0-15) NT-Pro-B Natriuret Pep 1540 pg/mL H pg/m L (0-125) Total Protein 5.8 g/dL L g/dL (6.6-8.7) Albumin 3.1 g/dL L g/dL (3.5-5.2) Globulin 2.7 g/dL g/dL (1.3-4.6) Lipase 18 U/L U/L (13-60) Urine Color Urine Appearance Urine pH Ur Specific Gravit y Urine Protein Urine Glucose (UA) Urine Ketones Urine Blood Urine Nitrate Urine Bilirubin Urine Urobilinogen Ur Leukocyte Carmen ase Urine RBC Urine WBC Ur Squamous Epith Cells Amorphous Sediment Urine Bacteria 05/12/21 16:22 WBC RBC Hgb Hct MCV MCH MCHC RDW Plt Count MPV Neut % (Auto) Lymph % (Auto) [place] % (Auto) Eos % (Auto) Baso % (Auto) Neut # (Auto) Lymph # (Auto) [place] # (Auto) Eos # (Auto) Baso # (Auto) Nucleated RBC % (a uto) Nucleated RBCs # Sodium Potassium Chloride Carbon Dioxide Anion Gap BUN Creatinine GFR Calculation Glucose Calculated Osmolal ity Calcium Total Bilirubin AST ALT Alkaline Phosphata se Troponin T Baselin e NT-Pro-B Natriuret Pep Total Protein Albumin Globulin Lipase Urine Color Yellow (Yellow) Urine Appearance Clear (CLEAR) Urine pH 5 (5-7) Ur Specific Gravit y 1.015 (1.005-1.030) Urine Protein 1+ H (Negative) Urine Glucose (UA) 2+ H (Normal) Urine Ketones Negative (Negative) Urine Blood 2+ H (Negative) Urine Nitrate Negative (Negative) Urine Bilirubin Neg (Negative) Urine Urobilinogen Norm mg/dL mg/dL (Negative) Ur Leukocyte Carmen ase Negative (Negative) Urine RBC 0-4 /hpf H /hpf (0-2) Urine WBC 0-4 /hpf H /hpf (0-5) Ur Squamous Epith Cells None /hpf /hpf (0-5) Amorphous Sediment Not Reportable Urine Bacteria None /hpf /hpf (NONE) EKG Data^: EKG 1: Attestation: I personally reviewed and interpreted this EKG as follows: EKG interpretation date: 05/12/21 EKG interpretation time: 15:52 Interpretation: Twelve-lead EKG shows a regular rhythm at a rate of 75. MN interval 197, QRS duration 107, QTc 465. Normal axis. Interpretation: Sinus rhythm, nonspecific ST segment abnormalities. Discharge Plan Discharge Patient Disposition: Admitted As Inpatient Admit Provider: Andrew Gonzalez Clinical Impression: Acute on chronic congestive heart failure Condition: Stable Discharge Diet: Cardiac and Diabetic Discharge Activity: Increase activity as tolerated Coding Level of Care Code ED Membership Sales Representative for Radhag Maria Victoria
--- NOTE | 2021-05-12 15:09 | ECG_ITS ---
[facility] Test Date: 2021-05-12 Pat Name: Rei Queen Department: Room: Gender: Male Chief Concierge: : 1970 Requested By: Van Barry Order Number: [id number] Pena MD: Tory Lopez M.D. Measurements Intervals [place] Rate: 75 P: 38 [place]: 197 QRS: 2 QRSD: 107 T: 29 QT: 415 QTc: 465 Interpretive Statements SINUS RHYTHM POSSIBLE ANTERIOR MYOCARDIAL INFARCTION , PROBABLY OLD [30 ms Q WAVE IN V3/V4, OR R < 0.2 mV IN V4] Compared to ECG 04/12/2021 15:21:24 No significant changes Electronically Signed On 05-13-2021 17:09:13 SHIP CARPENTER by Tory Lopez M.D. [email or web address]
--- NOTE | 2021-05-12 15:09 | XRR_ITS ---
PROCEDURE INFORMATION: Exam: XR Chest Exam date and time: 05/12/2021 3:09 PM Age: 50 years old Clinical indication: Pain; Radiating; Prior surgery; Surgery date: 6+ months; Additional info: Chest pain TECHNIQUE: Imaging protocol: XR of the chest. Views: 1 view. COMPARISON: CR (CHEST, ) 04/12/2021 6:43 PM FINDINGS: Tubes, catheters and devices: Left chest port terminates at the cavoatrial junction. Lungs: Hazy wedge-shaped opacity along the peripheral left lung base. Curvilinear scarring atelectasis also noted at the lung bases. Pleural spaces: Unremarkable. No pleural effusion. No pneumothorax. Heart/Mediastinum: No cardiomegaly. Bones/joints: Sternotomy wires noted. Visualized osseous structures are intact. XR/XR chest 1V portable [id number] IMPRESSION: Curvilinear atelectasis or scarring at the lung bases. There is also a wedge-shaped opacity along the peripheral left lung base which could relate to additional areas of scarring or atelectasis, with an infiltrate an additional consideration.
[2021-05-12] MEDS: fentaNYL 50 mcg/mL INJ 2mL 75 MCG IVP (16:14)
[2021-05-12] MEDS: promethazine 25 mg/mL SDV 1 mL IM (16:14)
[2021-05-12 16:16] LABS: Basophils # 0.1 10^3/uL (0.0-0.1); Basophils % 0.8 %; Eosinophils # 0.1 10^3/uL (0.0-0.8); Hematocrit 33.6 % (42.0-52.0); Hemoglobin 11.7 g/dL (11.7-16.6); Lymphocytes # 1.3 10^3/uL (0.8-4.8); Lymphocytes % 12.9 %; Mean Corpuscular HGB Conc 34.8 g/dL (30.0-36.0); Mean Corpuscular Hemoglobin 30.3 pg (28.0-34.0); Mean Platelet Volume 9.4 fL (7.4-10.4); Monocytes # 1.1 10^3/uL (0.2-0.9); Monocytes % 10.5 %; Neutrophils # 7.75 10^3/uL (1.8-7.7); Neutrophils % 74.3 %; Nucleated Red Blood Cells % 0 %; Platelet Count 254 10^3/cmm (130-400); Red Blood Count 3.86 10^6/uL (4.1-5.3); Red Cell Distribution Width 14.9 % (12.1-15.1); White Blood Count 10.4 10^3/uL (4.0-10.0)
[2021-05-12 16:36] LABS: Add Urine Microscopic? YES; Bilirubin Urine Neg (Negative); Blood Urine 2+ (Negative); Glucose Urine UA 2+ (Normal); Ketones Urine Negative (Negative); Leukocyte Esterase Urine Negative (Negative); Nitrate Urine Negative (Negative); Protein Urine 1+ (Negative); Specific Gravity, Urine 1.015 (1.005-1.030); Urine Appearance Clear (CLEAR); Urine Color Yellow (Yellow); Urobilinogen Urine Norm (Negative); pH Urine 5 (5-7)
[2021-05-12 16:37] LABS: Add Urine Culture? No; RBC Urine 0-4 /hpf (0-2); WBC Urine 0-4 /hpf (0-5)
[2021-05-12 16:46] LABS: Troponin(5th) Baseline 56 ng/L (0-15)
[2021-05-12 16:54] LABS: Alanine Aminotransferase 14 U/L (0-41); Albumin Level 3.1 g/dL (3.5-5.2); Alkaline Phosphatase 137 IU/L (40-130); Anion Gap 19.5 (5-19); Aspartate Amino Transferase 18 U/L (0-40); Blood Urea Nitrogen 49 mg/dL (6-20); Calcium 8.6 mg/dL (8.5-10.5); Carbon Dioxide 24 mmol/L (22-29); Chloride 96 mmol/L (98-107); Globulin 2.7 g/dL (1.3-4.6); Glomerular Filtration Rate 22.1 mL/min (90-130); Glucose 155 mg/dL (65-115); Lipase 18 U/L (13-60); NT Pro B Type Natriuretic Pept 1540 pg/mL (0-125); Osmolality Calculated 298 mOsm/kg (285-295); Potassium 3.5 mmol/L (3.5-5.1); Sodium 136 mmol/L (136-145); Total Bilirubin 0.4 mg/dL (0.15-1.2); Total Protein 5.8 g/dL (6.6-8.7)
--- NOTE | 2021-05-12 17:09 | ECG_ITS ---
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 Measurements Intervals [place] Rate: 59 P: 6 UT: 181 QRS: -9 QRSD: 110 T: 19 QT: 440 QTc: 438 Interpretive Statements SINUS BRADYCARDIA POSSIBLE ANTERIOR MYOCARDIAL INFARCTION , PROBABLY OLD [30 ms Q WAVE IN V3/V4, OR R < 0.2 mV IN V4] Compared to ECG 05/12/2021 22:53:23 No significant changes Electronically Signed On 05-13-2021 17:12:29 AIR BAG CURER by Tory Lopez M.D. [id number]
[2021-05-12 18:39] LABS: Troponin 5 2HR 57.56 ng/L (0-15); Troponin 5 2HR Delta 1.56 ABS# (0-10)
--- NOTE | 2021-05-12 19:10 | P.HP_ITS ---
Providers/Chief Complaint Admitting Physician: Andrew Gonzalez Primary Care Provider: Kp Montanez DO Chief Complaint: CHEST PAIN/ RETAINING WATER History of Present Illness 50-year-old gentleman with history of congestive heart failure, CKD, HTN, DM 2, remote history of DVT, PE, right inguinal hernia which she states is following with surgery and is in the process for arrangement of repair, presents to the hospital due to difficulty with losing weight, dyspnea on exertion, now limiting his ambulation. He does not normally wear oxygen. He wears CPAP nightly for PAM. States up until now has been ambulating unassisted. Reports having some loose stools, some nausea. Some pain in the right groin with standing up and ambulation. Bumex dose was raised to 4 mg twice daily, also takes every other day metolazone. Episodes of left-sided chest discomfort radiating down the arm into the jaw. Similar to prior episodes. He denies fever, cough, phlegm production or URI symptoms. No muscle aches or chills. Review of Systems Const: Denies: fever(s), chills, body aches or malaise Eyes: Denies: change in vision or eye redness ENMT: Denies: throat pain, oral sores or ear or mastoid pain Card: Reports: chest pain, edema and dyspnea on exertion; Denies: pre-syncope Resp: Reports: dyspnea; Denies: productive cough, change in phlegm color or hemoptysis GI: Reports: nausea and diarrhea; Denies: abdominal pain, vomiting, constipation, hematochezia or melena : Denies: flank pain, difficulty urinating, urinary frequency or hematuria Musc: Denies: back pain, joint swelling or joint redness Skin/Breast: Denies: rash, sores or new lesions Neuro: Denies: headache(s), numbness in extremities, weakness in extremities, dizziness, confusion or seizure-like activity Endo: Denies: polyuria or polydipsia Dewey/Lymph: Denies: easy bleeding or purpura All/Imm: Denies: urticaria, throat swelling or tongue swelling Medications/Allergies Home Medications Medication Instructions Recorded Confirmed Last Taken Type aspirin 81 mg tablet,delayed 81 mg PO DAILY@0600 06/01/19 05/12/21 05/12/21 History release dulaglutide 0.75 mg/0.5 mL 0.75 mg SUBCUT Q7D 06/01/19 05/12/21 05/06/21 History subcutaneous pen injector multivitamin 1 tab PO QPM 06/01/19 05/12/21 05/05/21 History cyclobenzaprine 10 mg PO TID PRN 01/07/20 05/12/21 05/05/21 History isosorbide mononitrate 30 mg PO BID@0600,1800 09/05/20 05/12/21 05/12/21 History insulin lispro [Humalog U-100 See Rx Instructions .ROUTE .COMPLEX 09/25/20 05/12/21 05/05/21 History Insulin] nitroglycerin 0.4 mg sublingual 0.4 mg SUBLINGUAL Q5M PRN #25 tab 10/10/20 05/12/21 05/12/21 Rx tablet atorvastatin 40 mg PO QAM 11/04/20 05/12/21 05/12/21 History ranolazine [Ranexa] 500 mg PO BID 01/08/21 05/12/21 05/12/21 History Tresiba FlexTouch U-200 30 unit SUBCUT BEDTIME 02/09/21 05/12/21 05/11/21 History levothyroxine 88 mcg PO QAM 02/09/21 05/12/21 05/12/21 History trazodone 300 mg PO BEDTIME PRN 02/09/21 05/12/21 05/05/21 History promethazine 25 mg tablet 25 mg PO Q6H PRN 02/22/21 05/12/21 05/05/21 History hydroxyzine HCl 50 mg tablet 50 mg PO QID PRN #120 tab 03/15/21 05/12/21 05/05/21 Rx citalopram 40 mg PO DAILY 03/26/21 05/12/21 05/12/21 History Eliquis 5 mg PO Q12H #60 tab 03/27/21 05/12/21 05/12/21 Rx amlodipine 5 mg PO DAILY #0 tab 04/17/21 05/12/21 05/12/21 Rx calcium acetate [Calphron] 667 mg PO TIDWM 30 Days #90 tab 04/17/21 05/12/21 05/12/21 Rx metoprolol tartrate 25 mg PO BID@0600,1800 #0 tab 04/17/21 05/12/21 05/12/21 Rx bumetanide 2 mg tablet 2 mg PO BID #60 tab 04/26/21 05/12/21 05/12/21 Rx gabapentin 600 mg PO TID 05/12/21 05/12/21 05/12/21 History lidocaine 1 patch TRANSDERMAL PRN PRN 05/12/21 05/12/21 Unknown History metolazone 5 mg PO DAILY 05/12/21 05/12/21 05/12/21 History final dose 05/13/21 potassium chloride 20 meq PO BID 05/12/21 05/12/21 05/12/21 History Allergies Allergy/AdvReac Type Severity Reaction Status Date / Time Iodinated Contrast Media Allergy Severe ALGY-Difficulty Verified 05/05/21 07:17 Breathing iodine Allergy Severe ALGY-Difficulty Verified 05/05/21 07:17 Breathing metoclopramide [From Reglan] Allergy Severe ALGY-Difficulty Verified 05/05/21 07:17 Breathing nalbuphine [From Nubain] Allergy Severe ADR-Diarrhe Verified 05/05/21 07:17 a naproxen [From Naprosyn] Allergy Severe ADR-Vomitin Verified 05/05/21 07:17 g Sulfa (Sulfonamide Allergy Severe ALGY-Difficulty Verified 05/05/21 07:17 Antibiotics) Breathing ketorolac Allergy Intermediate ADR-Nausea Verified 05/05/21 07:17 ondansetron [From Zofran] Allergy Intermediate ADR-Abdominal Verified 05/05/21 07:17 Pain prochlorperazine Allergy Intermediate ADR-Irritab Verified 05/05/21 07:17 [From Compazine] le codeine AdvReac Severe ALGY-Anaphy Verified 05/05/21 07:17 laxis haloperidol [From Haldol] AdvReac Intermediate ADR-Irritab Verified 05/05/21 07:17 le PFSH Acute PFSH: Medical History Acute exacerbation of CHF (congestive heart failure) Anemia Atherosclerotic heart disease of [place] coronary artery with other forms of angina pectoris hx of CAD with prior stenting of proximal LAD, LCx, RCA Chronic anticoagulation Eliquis Chronic kidney disease -baseline Cr appears to be around 1.5 Chronic systolic heart failure EF=47%, diffuse LV hypokinesis, mildly increased LA size Depression Diabetes A1c-7.6 (08/2019) Foot drop, left GERD (gastroesophageal reflux disease) H/O acute myocardial infarction H/O deep venous thrombosis developed compartment syndrome Hyperlipidemia Hypertension Hypothyroidism Ischemic cardiomyopathy Major depressive disorder, recurrent severe without psychotic features Obesity (BMI 30-39.9) Osteoarthritis of spine Psychiatric care Recent weight gain Surgical History H/O colonoscopy (11/14/20) 08/2015 H/O esophagogastroduodenoscopy (11/14/20) 08/2015 H/O removal of testicle left H/O skin graft H/O vasectomy History of appendectomy 1995 History of coronary artery stent placement 5x History of excision of mass 06/08/2019: Subcutaneous mass on back History of inguinal hernia repair, bilateral 1999 History of removal of Port-a-Cath Hx of cholecystectomy Port-A-Cath in place Family History Grandfather Cancer skin cancer Parkinson disease Brother Hypertension Father Heart disease Mother Hypertension Stroke Aneurysm Grandmother Aneurysm Other Crohn disease Denies family history of Anesthesia complication Bleeding disorder Social History Smoking and tobacco status: never smoked Second hand smoke exposure: No Alcohol intake: former Former alcohol use details: Only holidays Lives independently: Yes Household members: significant other Marital status: Single Current occupational status: disabled History of recent travel: No Vitals/I&O/Wt Last Vital Signs Temp 98.7 F 05/12/21 14:49 Pulse 66 05/12/21 18:45 Resp 16 05/12/21 18:45 BP 147/78 05/12/21 18:45 Pulse Ox 92 05/12/21 18:45 Weight last 48 hrs Weight 118.841 kg Physical Exam Const: COMMON NORMALS: no acute distress and patient oriented x3 NUTRITIONAL APPEARANCE: obese HENMT: COMMON NORMALS: oropharynx normal Neck/C-Spine: COMMON NORMALS: no JVD Resp: COMMON NORMALS: normal respiratory effort and clear to auscultation bilaterally AUSCULTATION: clear to auscultation bilaterally Cardio: COMMON NORMALS: no JVD, regular rhythm, S1 normal heart sound present, S2 normal heart sound present and No murmurs present (Cardio) RHYTHM: regular rhythm HEART SOUNDS: S1 normal heart sound present and S2 normal heart sound present GI: COMMON NORMALS: Normal to inspection, nondistended, normoactive bowel sounds present, Soft to palpation and non-tender PALPATION: Yes Soft to palpation OTHER: I do not palpate an incarcerated hernia on the right inguinal exam Extremity: COMMON NORMALS: no joint enlargement GENERAL: Yes edema (2+) Neuro: COMMON NORMALS: patient oriented x3 and moves all extremities Skin: COMMON NORMALS: no rashes or lesions noted RASHES: rashes noted (Intertrigo under pannus) OTHER: Old fasciotomy scars on legs Data : 05/12/21 16:09 05/12/21 16:09 A&P Assessment and plan (1) Acute on chronic congestive heart failure: Bumex has been raised to 4 mg twice daily, with metolazone every other day. Has not succeeded in losing weight. Lower extremity edema. Dyspnea, orthopnea. Discussed with him risk of kidney injury given worsening renal function during attempted diuresis during last admission. He realizes that his renal function does not cooperate well with diuresis and he is at risk of worsening renal function and given hemodialysis. Discussed with him at this time starting Bumex IV 2 mg every 6 hours with metolazone every other day. Monitor response to diuresis, renal function, and continuing or escalating from there. He is agreeable. We will request Little catheter for accurate I&O. Monitor electrolytes. Status: Acute (2) Acute kidney injury superimposed on CKD: Creatinine is up to 3. Difficult to tell what his actual baseline is, most recently on 05/05 was 2.4. Possibly secondary to fluid overload, anticipate may improve with diuresis, however, monitor closely given propensity for renal function to worsen with diuresis as had occurred during the recent admission. Status: Acute (3) Chest pain: Complete troponin and EKG series. Monitor on telemetry. Continue aspirin, statin, Eliquis, metoprolol. Imdur. Ranexa. Nitroglycerin as needed. Status: Acute (4) Intertrigo: Add nystatin cream Status: Acute Additional A&P Information Right inguinal hernia: He is making arrangements with surgery for repair. Requests for pain medication. Discussed with him consideration of Tylenol, continuation of gabapentin, consideration of topical relieving agents, possibly heating pad. Discussed with him concern regarding starting opioids which may slow bowel transit, lead to constipation and other complications, especially with already bowel edema likely due to CHF, and with presence of hernia these medications may not be safe. He verbalized understanding, and agreement with a trial of more conservative measures. PAM: Nightly CPAP DM2: Insulin glargine, SSI HTN: Continue metoprolol, will repeat, Imdur History of DVT, PE: Continue Eliquis Attestations Medical Necessity Statement*: Place in observation for assessment management of acute on chronic CHF with acute kidney injury on chronic kidney disease, chest pain. Coding Level of Care Code Acute Program Engineer for Chg Fwd Diagnoses Acute on chronic congestive heart failure I50.9 Acute kidney injury superimposed on CKD N17.9; N18.9 Chest pain R07.9 Intertrigo L30.4
--- NOTE | 2021-05-12 21:09 | ECG_ITS ---
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 Measurements Intervals [place] Rate: 59 P: 7 DE: 186 QRS: -8 QRSD: 104 T: 29 QT: 434 QTc: 432 Interpretive Statements SINUS BRADYCARDIA POSSIBLE ANTERIOR MYOCARDIAL INFARCTION , PROBABLY OLD [30 ms Q WAVE IN V3/V4, OR R < 0.2 mV IN V4] Compared to ECG 05/12/2021 15:47:30 Sinus rhythm no longer present Myocardial infarct finding still present Electronically Signed On 05-13-2021 17:12:46 C IRON WORKER by Tory Lopez M.D. [id number]
[2021-05-12] MEDS: bumetanide 0.25 mg/mL SDV 10 mL 2 MG IVP (22:33)
[2021-05-12] MEDS: gabapentin 300 mg Capsule 600 MG PO (22:34)
[2021-05-12] MEDS: apixaban 5 mg Tablet PO (22:34)
[2021-05-12] MEDS: insulin glargine 100 units/1 mL 30 UNIT SUBCUT (22:35)
[2021-05-12] MEDS: insulin lispro 100 unit/1 mL SUBCUT (22:36)
[2021-05-12 22:46] LABS: Glucose Point of Care 153 mg/dL (70-110)
[2021-05-12 23:45] LABS: Troponin 5 6HR 57.66 ng/L (0-15); Troponin 5 6HR Delta 1.66 ng/L (0-12)
[2021-05-13] VITALS (10 sets, daily range): BP systolic 132–145; BP diastolic 78–82; PULSE 63–88; RESP 17–19; TEMP 36.7–36.8; O2SAT 92–97
[2021-05-13] MEDS: bumetanide 0.25 mg/mL SDV 10 mL 2 MG IVP ×4 (04:45→22:30)
[2021-05-13] MEDS: levothyroxine 88 mcg Tablet PO (04:46)
[2021-05-13] MEDS: metoprolol tartrate 50 mg Tablet 25 MG PO ×2 (04:46→17:22)
[2021-05-13] MEDS: aspirin 81 mg EC Tablet PO (04:47)
[2021-05-13] MEDS: atorvastatin 40 mg Tablet PO (04:47)
[2021-05-13 04:50] LABS: Basophils # 0.1 10^3/uL (0.0-0.1); Basophils % 1.1 %; Eosinophils # 0.2 10^3/uL (0.0-0.8); Eosinophils % 2.9 %; Hemoglobin 11.7 g/dL (11.7-16.6); Lymphocytes # 1.8 10^3/uL (0.8-4.8); Mean Corpuscular HGB Conc 33.4 g/dL (30.0-36.0); Mean Corpuscular Hemoglobin 29.6 pg (28.0-34.0); Mean Corpuscular Volume 88.6 fl (80-94); Mean Platelet Volume 9.7 fL (7.4-10.4); Monocytes # 0.8 10^3/uL (0.2-0.9); Monocytes % 10.6 %; Nucleated Red Blood Cells % 0 %; Platelet Count 243 10^3/cmm (130-400); Red Blood Count 3.95 10^6/uL (4.1-5.3); White Blood Count 7.5 10^3/uL (4.0-10.0)
[2021-05-13] MEDS: isosorbide mononitrate ER 30 mg Tablet PO ×2 (04:50→17:22)
[2021-05-13 05:17] LABS: Alanine Aminotransferase 15 U/L (0-41); Albumin Level 3.1 g/dL (3.5-5.2); Alkaline Phosphatase 124 IU/L (40-130); Anion Gap 16.9 (5-19); Aspartate Amino Transferase 20 U/L (0-40); Blood Urea Nitrogen 52 mg/dL (6-20); Calcium 8.4 mg/dL (8.5-10.5); Carbon Dioxide 28 mmol/L (22-29); Chloride 95 mmol/L (98-107); Globulin 2.6 g/dL (1.3-4.6); Glucose 164 mg/dL (65-115); Magnesium 1.7 mg/dL (1.7-2.3); Osmolality Calculated 302 mOsm/kg (285-295); Sodium 137 mmol/L (136-145); Total Bilirubin 0.5 mg/dL (0.15-1.2); Total Protein 5.7 g/dL (6.6-8.7)
[2021-05-13 05:32] LABS: Potassium 2.9 mmol/L (3.5-5.1)
--- NOTE | 2021-05-13 06:07 | PC.NURSE ---
Patient refused catheter. Stated Why the hell do I need a catheter, I can use a urinal. Patient using urinal and was educated to make sure that he measures all urine by using urinal and allowing nurses to keep track of output.
[2021-05-13] MEDS: potassium chloride premix 100 ML 25 MEQ IV (06:28)
[2021-05-13 07:13] LABS: Glucose Point of Care 188 mg/dL (70-110)
[2021-05-13] MEDS: apixaban 5 mg Tablet PO ×2 (08:57→20:48)
[2021-05-13] MEDS: amlodipine 5 mg Tablet PO (08:57)
[2021-05-13] MEDS: gabapentin 300 mg Capsule 600 MG PO ×3 (08:57→20:46)
[2021-05-13] MEDS: ranolazine (12HR) 500 mg Tablet PO ×2 (08:57→17:22)
[2021-05-13] MEDS: citalopram 20 mg Tablet 40 MG PO (08:57)
[2021-05-13] MEDS: metOLazone 5 MG Tablet PO (08:57)
[2021-05-13] MEDS: insulin lispro 100 unit/1 mL SUBCUT ×4 (08:58→20:44)
[2021-05-13] MEDS: calcium acetate 667 mg Capsule PO ×3 (09:02→17:22)
[2021-05-13 11:04] LABS: Glucose Point of Care 290 mg/dL (70-110)
--- NOTE | 2021-05-13 15:07 | PM.PN ---
Subjective Subjective: Interval history: Subjectively he is improving. He reports that he is breathing easier. He overall feels close to his usual self. He is concerned that his weight is still significantly higher than normal. He had yesterday reported in ER dry weight close to 240 pounds. Discussed with him not sure whether this is accurate given during the recent addition at discharge after diuresis weight of 260 pounds, although at that time did also have kidney injury, requiring withholding diuretics for several days. Discussed with him given currently is responding well to diuresis with the regimen with Bumex 2 mg every 6 hours, and negative balance, currently with unchanged and slightly improved renal function, would continue the same regimen without escalation currently to avoid kidney injury to which appears may be prone with diuresis based on the recent hospitalization. He is agreeable with the plan. RLQ pain resolved so far. Vitals/I&O/Wt Last Vital Signs Temp 98.1 F 05/13/21 08:00 Pulse 82 05/13/21 14:00 Resp 17 05/13/21 08:00 BP 139/82 05/13/21 08:00 Pulse Ox 97 05/13/21 11:21 05/13/21 05/13/21 05/13/21 06:59 14:59 22:59 Intake Total 560 / 560 Output Total 1000 / 1000 1989 Balance -1000 / -1000 -1430 / -1430 Weight last 48 hrs Weight 119.295 kg Weight 118.841 kg Weight 118.841 kg Physical Exam Const: COMMON NORMALS: no acute distress and patient oriented x3 NUTRITIONAL APPEARANCE: obese HENMT: COMMON NORMALS: oropharynx normal Neck/C-Spine: COMMON NORMALS: no JVD Resp: COMMON NORMALS: normal respiratory effort and clear to auscultation bilaterally AUSCULTATION: clear to auscultation bilaterally Cardio: COMMON NORMALS: no JVD, regular rhythm, S1 normal heart sound present, S2 normal heart sound present and No murmurs present (Cardio) RHYTHM: regular rhythm HEART SOUNDS: S1 normal heart sound present and S2 normal heart sound present GI: COMMON NORMALS: Normal to inspection, nondistended, normoactive bowel sounds present, Soft to palpation and non-tender PALPATION: Yes Soft to palpation OTHER: I do not palpate an incarcerated hernia on the right inguinal exam Extremity: COMMON NORMALS: no joint enlargement GENERAL: Yes edema (2+) Neuro: COMMON NORMALS: patient oriented x3 and moves all extremities Skin: COMMON NORMALS: no rashes or lesions noted GENERAL SKIN EXAM: no rashes or lesions noted RASHES: rashes noted (Intertrigo under pannus) OTHER: Old fasciotomy scars on legs Data : 05/13/21 04:35 05/13/21 04:35 A&P Assessment and plan (1) Acute on chronic congestive heart failure: He is so far saponified related to diuresis with Bumex 2 mg every 6 hours. -2400 mL since yesterday, although weight appears unchanged, not sure if measured accurately or if incompletely measured intake. Subjectively he is feeling better. Oxygenation is better. Renal function so far allowing diuresis, with creatinine with mild improvement from 3-2.9. Continue for now without change, monitor I&O, oxygenation, renal function. Little catheter for accurate I&O. Replacement for hypokalemia. Status: Acute (2) Acute kidney injury superimposed on CKD: Creatinine steady at 2.9. Difficult to tell what his actual baseline is, most recently on 05/05 was 2.4. Possibly secondary to fluid overload, anticipate may improve with diuresis, however, monitor closely given propensity for renal function to worsen with diuresis as had occurred during the recent admission. Status: Acute (3) Chest pain: Complete troponin and EKG series. Monitor on telemetry. Continue aspirin, statin, Eliquis, metoprolol. Imdur. Ranexa. Nitroglycerin as needed. Status: Acute (4) Intertrigo: Nystatin cream Status: Acute Additional A&P Information Right inguinal hernia: Pain so far resolved. Possibly secondary to bowel edema. He is making arrangements with surgery for repair. PAM: Nightly CPAP DM2: Insulin glargine, SSI HTN: Continue metoprolol, will repeat, Imdur History of DVT, PE: Continue Eliquis Attestations Medical Necessity Statement*: Continue admission for cyst management of acute CHF exacerbation in the setting of acute kidney injury on chronic kidney disease. Coding Level of Care Code Acute Heel Edge Inker Machine for Chg Fwd Diagnoses Acute on chronic congestive heart failure I50.9 Acute kidney injury superimposed on CKD N17.9; N18.9 Chest pain R07.9 Intertrigo L30.4
[2021-05-13 16:00] LABS: Glucose Point of Care 283 mg/dL (70-110)
[2021-05-13] MEDS: multivitamin therapeutic Tablet 1 TAB PO (17:22)
[2021-05-13] MEDS: potassium chloride ER 20 mEq Tablet PO (17:22)
[2021-05-13 19:57] LABS: Glucose Point of Care 325 mg/dL (70-110)
[2021-05-13] MEDS: insulin glargine 100 units/1 mL 30 UNIT SUBCUT (20:43)
[2021-05-13] MEDS: trazodone 100 mg Tablet 300 MG PO (20:47)
[2021-05-13] MEDS: acetaminophen 325 mg Tablet 650 MG PO (20:51)
[2021-05-14] VITALS (7 sets, daily range): BP systolic 125–144; BP diastolic 72–86; PULSE 67–76; RESP 16–18; TEMP 36.5–37.1; O2SAT 91–99; BMI 42.3
[2021-05-14] MEDS: bumetanide 0.25 mg/mL SDV 10 mL 2 MG IVP ×2 (04:27→11:48)
[2021-05-14] MEDS: levothyroxine 88 mcg Tablet PO (05:30)
[2021-05-14] MEDS: atorvastatin 40 mg Tablet PO (05:31)
[2021-05-14] MEDS: isosorbide mononitrate ER 30 mg Tablet PO (05:32)
[2021-05-14] MEDS: metoprolol tartrate 50 mg Tablet 25 MG PO (05:33)
[2021-05-14] MEDS: aspirin 81 mg EC Tablet PO (05:34)
[2021-05-14 06:00] LABS: Basophils # 0.1 10^3/uL (0.0-0.1); Eosinophils # 0.2 10^3/uL (0.0-0.8); Eosinophils % 3.1 %; Hematocrit 34.3 % (42.0-52.0); Hemoglobin 11.2 g/dL (11.7-16.6); Lymphocytes # 1.9 10^3/uL (0.8-4.8); Lymphocytes % 26.1 %; Mean Corpuscular HGB Conc 32.7 g/dL (30.0-36.0); Mean Corpuscular Hemoglobin 28.9 pg (28.0-34.0); Mean Corpuscular Volume 88.6 fl (80-94); Mean Platelet Volume 9.9 fL (7.4-10.4); Monocytes # 0.8 10^3/uL (0.2-0.9); Monocytes % 10.9 %; Neutrophils # 4.17 10^3/uL (1.8-7.7); Neutrophils % 58.5 %; Nucleated Red Blood Cells % 0 %; Platelet Count 262 10^3/cmm (130-400); Red Blood Count 3.87 10^6/uL (4.1-5.3); Red Cell Distribution Width 14.9 % (12.1-15.1); White Blood Count 7.1 10^3/uL (4.0-10.0)
--- NOTE | 2021-05-14 06:23 | PC.NURSE ---
Frequent safety and comfort rounds continue. Orders and/or nursing care completed as indicated. Patient monitored for response to intervention and treatment(s). Education provided includes keeping chest port line from being tangled.. Patient and/or asset protection representative verbalized understanding Will continue to monitor.
[2021-05-14 06:24] LABS: Alanine Aminotransferase 13 U/L (0-41); Albumin Level 3.3 g/dL (3.5-5.2); Alkaline Phosphatase 123 IU/L (40-130); Anion Gap 12.8 (5-19); Aspartate Amino Transferase 14 U/L (0-40); Blood Urea Nitrogen 58 mg/dL (6-20); Calcium 8.9 mg/dL (8.5-10.5); Carbon Dioxide 33 mmol/L (22-29); Chloride 96 mmol/L (98-107); Globulin 2.9 g/dL (1.3-4.6); Glucose 91 mg/dL (65-115); Osmolality Calculated 304 mOsm/kg (285-295); Sodium 139 mmol/L (136-145); Total Bilirubin 0.3 mg/dL (0.15-1.2); Total Protein 6.2 g/dL (6.6-8.7)
[2021-05-14 06:27] LABS: Potassium 2.8 mmol/L (3.5-5.1)
[2021-05-14 06:46] LABS: Glucose Point of Care 103 mg/dL (70-110)
[2021-05-14] MEDS: potassium chloride premix 100 ML 25 MEQ IV (07:58)
[2021-05-14] MEDS: amlodipine 5 mg Tablet PO (07:59)
[2021-05-14] MEDS: potassium chloride ER 20 mEq Tablet PO (07:59)
[2021-05-14] MEDS: citalopram 20 mg Tablet 40 MG PO (07:59)
[2021-05-14] MEDS: calcium acetate 667 mg Capsule PO ×2 (07:59→11:48)
[2021-05-14] MEDS: ranolazine (12HR) 500 mg Tablet PO (07:59)
[2021-05-14] MEDS: apixaban 5 mg Tablet PO (07:59)
[2021-05-14] MEDS: gabapentin 300 mg Capsule 600 MG PO ×2 (07:59→14:15)
[2021-05-14] MEDS: lidocaine 1% INJ 20 mL 5 ML IV (08:41)
[2021-05-14] MEDS: metOLazone 5 MG Tablet PO (08:42)
[2021-05-14 11:19] LABS: Glucose Point of Care 228 mg/dL (70-110)
[2021-05-14] MEDS: insulin lispro 100 unit/1 mL SUBCUT (11:49)
--- NOTE | 2021-05-14 15:44 | PC.NURSE ---
de access chase cath on left upper chest received order from doc. heparin flushed per protocol. non coring needle is intact. applied pressure to site. skin chloraprep on site. covered site with optifoam. pt tolerated well.
--- NOTE | 2021-05-14 16:11 | PC.NURSE ---
Discharge Note Patient discharged to home via wheelchair accompanied by . Discharge instructions reviewed with patient and/or surgical device sales representative. Mobile pharmacy medications and/or prescriptions provided. Belongings/home medications returned. Pt has questions on his metolazone. Dr Gonzalez called via voalte and talked to pt. Pt asked if he needs to continue his metolazone since it was prescribed every other day until May 13 according to his medical record specialist per patient statement. Dr. Castillo asked the pt if he still have some pills left at home. pt stated he still has more pills at home. Dr Gonzalez told the pt back to finish the remaining metolazone pills and take it every other day. discharge continued meds edited in the papers.
--- NOTE | 2021-05-14 17:00 | PM.DCS ---
Discharge Providers Date of Admission: 05/12/21 17:51 Date of Discharge: May 14, 2021 Attending Provider at Admission: Andrew Gonzalez Attending Provider at Discharge: Andrew Gonzalez Primary Care Provider: Kp Montanez DO Diagnoses at Discharge Discharge Diagnosis (1) Acute on chronic congestive heart failure: Status: Acute (2) Acute kidney injury superimposed on CKD: Status: Acute (3) Chest pain: Status: Acute (4) Intertrigo: Status: Acute Reason for Visit Reason for Visit: CHEST PAIN/ RETAINING WATER Brief History: 50-year-old gentleman with history of congestive heart failure, CKD, HTN, DM 2, remote history of DVT, PE, right inguinal hernia which she states is following with surgery and is in the process for arrangement of repair, presents to the hospital due to difficulty with losing weight, dyspnea on exertion, now limiting his ambulation. He does not normally wear oxygen. He wears CPAP nightly for PAM. States up until now has been ambulating unassisted. Reports having some loose stools, some nausea. Some pain in the right groin with standing up and ambulation. Bumex dose was raised to 4 mg twice daily, also takes every other day metolazone. Episodes of left-sided chest discomfort radiating down the arm into the jaw. Similar to prior episodes. He denies fever, cough, phlegm production or URI symptoms. No muscle aches or chills. Hospital Course Hospital Course Diuretics transitioned to IV Bumex 2 mg every 6 hours, with metolazone daily, with good response, and negative balance, although not sure the chemotherapy amount is completely accurate, but subjectively also noted significant improvement in edema, dyspnea resolved. Chest pain had resolved and without any recurrence, likely related to fluid overload and chronic anginal symptoms, previously extensively worked up, possibly 2/2 microvascular disease. No suggestion of acute DE. He is continued on aspirin, statin, Eliquis, metoprolol, Imdur, Ranexa, with nitroglycerin as needed. He is asked to continue follow-up with cardiology, nephrology. He has been considering his dry weight is 240 pounds, currently 260, although again unsure whether his weight currently is correct, but discussed with him given current weight and weight at last discharge, it appears his dry weight is closer to the latter number without significant risk to additional kidney injury. As he is feeling much better, not requiring oxygen support with improvement in edema, with stable renal function, he feels comfortable discharging home and following up further on outpatient side. Electrolytes replaced, and he is asked to take additional dose of potassium this evening. He has several doses of metolazone left, and is asked to complete the course. Please follow-up volume status, renal function and electrolytes in office at next visit. Nystatin cream is ordered for intertrigo under pannus. Physical Exam Const: COMMON NORMALS: no acute distress and patient oriented x3 NUTRITIONAL APPEARANCE: obese HENMT: COMMON NORMALS: oropharynx normal Neck/C-Spine: COMMON NORMALS: no JVD Resp: COMMON NORMALS: normal respiratory effort and clear to auscultation bilaterally AUSCULTATION: clear to auscultation bilaterally Cardio: COMMON NORMALS: no JVD, regular rhythm, S1 normal heart sound present, S2 normal heart sound present and No murmurs present (Cardio) RHYTHM: regular rhythm HEART SOUNDS: S1 normal heart sound present and S2 normal heart sound present GI: COMMON NORMALS: Normal to inspection, nondistended, normoactive bowel sounds present, Soft to palpation and non-tender PALPATION: Yes Soft to palpation Extremity: COMMON NORMALS: no joint enlargement GENERAL: Yes edema (1+) Neuro: COMMON NORMALS: patient oriented x3 and moves all extremities Skin: COMMON NORMALS: no rashes or lesions noted GENERAL SKIN EXAM: no rashes or lesions noted RASHES: rashes noted (Intertrigo under pannus) Discharge Data Data Completed and Pending: Completed Studies During Hospitalization Category Date Time Status XR chest 1V chase ble [id number] Stat Exams 05/12/21 15:09 Completed Labs from last 24 hours 05/14/21 05/14/21 05/14/21 11:14 06:41 05:14 WBC RBC Hgb Hct MCV MCH MCHC RDW Plt Count MPV Neut % (Auto) Lymph % (Auto) [place] % (Auto) Eos % (Auto) Baso % (Auto) Neut # (Auto) Lymph # (Auto) [place] # (Auto) Eos # (Auto) Baso # (Auto) Nucleated RBC % (a uto) Nucleated RBCs # Sodium 139 Potassium 2.8 L* Chloride 96 L Carbon Dioxide 33 H Anion Gap 12.8 BUN 58 H Creatinine 2.9 H GFR Calculation 23.0 L Glucose 91 POC Glucose 228 H 103 Calculated Osmolal ity 304 H Calcium 8.9 Total Bilirubin 0.3 AST 14 ALT 13 Alkaline Phosphata se 123 Total Protein 6.2 L Albumin 3.3 L Globulin 2.9 05/14/21 05/13/21 05:14 19:51 WBC 7.1 RBC 3.87 L Hgb 11.2 L Hct 34.3 L MCV 88.6 MCH 28.9 MCHC 32.7 RDW 14.9 Plt Count 262 MPV 9.9 Neut % (Auto) 58.5 Lymph % (Auto) 26.1 [place] % (Auto) 10.9 Eos % (Auto) 3.1 Baso % (Auto) 1.0 Neut # (Auto) 4.17 Lymph # (Auto) 1.9 [place] # (Auto) 0.8 Eos # (Auto) 0.2 Baso # (Auto) 0.1 Nucleated RBC % (a uto) 0 Nucleated RBCs # 0.0 Sodium Potassium Chloride Carbon Dioxide Anion Gap BUN Creatinine GFR Calculation Glucose POC Glucose 325 H Calculated Osmolal ity Calcium Total Bilirubin AST ALT Alkaline Phosphata se Total Protein Albumin Globulin Vitals: Last Vital Signs Temp 98.3 F 05/14/21 11:18 Pulse 69 05/14/21 11:18 Resp 17 05/14/21 11:18 BP 131/86 05/14/21 11:18 Pulse Ox 94 05/14/21 13:59 Discharge Plan Discharge Patient Disposition: Home Condition: Stable Prescriptions: New nystatin 100,000 unit/gram Cream 1 applic topical BID 14 Days Qty: 30 RF: 0 Continued bumetanide 2 mg tablet 2 mg PO BID Qty: 60 RF: 2 multivitamin [Daily Multi-Vitamin] Tablet 1 tab PO QPM RF: 0 Trulicity 0.75 mg/0.5 mL pen injector 0.75 mg SUBCUT Q7D RF: 0 aspirin 81 mg tablet,delayed release (DR/EC) 81 mg PO DAILY@0600 RF: 0 promethazine 25 mg tablet 25 mg PO Q6H PRN (Reason: Pain) RF: 0 nitroglycerin [Nitrostat] 0.4 mg tablet, sublingual 0.4 mg SUBLINGUAL Q5M PRN (Reason: Chest Pain) Qty: 25 RF: 2 hydroxyzine HCl 50 mg tablet 50 mg PO QID PRN (Reason: anxiety) Qty: 120 RF: 2 insulin lispro [Humalog U-100 Insulin] 100 unit/mL solution See Rx Instructions .ROUTE .COMPLEX RF: 0 citalopram 40 mg tablet 40 mg PO DAILY RF: 0 Eliquis 5 mg tablet 5 mg PO Q12H Qty: 60 RF: 0 calcium acetate [Calphron] 667 mg Tablet 667 mg PO TIDWM 30 Days Qty: 90 RF: 0 amlodipine 5 mg Tablet 5 mg PO DAILY Qty: 0 RF: 0 metoprolol tartrate 50 mg tablet 25 mg PO BID@0600,1800 Qty: 0 RF: 0 cyclobenzaprine 10 mg tablet 10 mg PO TID PRN (Reason: MUSCLE SPASMS) RF: 0 isosorbide mononitrate 30 mg tablet extended release 24 hr 30 mg PO BID@0600,1800 RF: 0 atorvastatin 40 mg tablet 40 mg PO QAM RF: 0 ranolazine [Ranexa] 500 mg tablet extended release 12 hr 500 mg PO BID RF: 0 levothyroxine 88 mcg tablet 88 mcg PO QAM RF: 0 Tresiba FlexTouch U-200 200 unit/mL (3 mL) insulin pen 30 unit SUBCUT BEDTIME RF: 0 trazodone 100 mg tablet 300 mg PO BEDTIME PRN (Reason: insomnia) RF: 0 gabapentin 600 mg tablet 600 mg PO TID RF: 0 metolazone 5 mg tablet 5 mg PO DAILY RF: 0 potassium chloride 20 mEq tablet,ER particles/crystals 20 meq PO BID RF: 0 lidocaine 5 % adhesive patch,medicated 1 patch transdermal PRN PRN (Reason: Pain) RF: 0 Discharge Orders: Discharge Order (Routine); Ordered 05/14/21 Ordered By: Andrew Gonzalez Referrals: Amalia Mccain FNP [Nurse Practitioner] - 1 week ([facility] will contact you to schedule an follow-up appointment in 1 week. If you haven't heard from them by Saturday. Please call ) Kp Montanez, [Primary Care Provider] - 4-7 days ([facility] will contact you to shcedule an follow-up appointment in 4 to 7 days.If you haven't heard from them by Maycol afternoon. Please call ) Discharge Diet: Cardiac and Diabetic Discharge Activity: Increase activity as tolerated Patient Instructions: Nystatin (On the skin), Acute Kidney Injury (DC), CHF Stoplight, Chest Pain Stoplight Activity Restrictions/Additional Instructions: Continue diuretic at home at the same dosing. Tonight please take additional dose of potassium 40 mEq in the evening. Please follow-up with cardiology office for reassessment of congestive heart failure, episodes of chest pain. Please have your primary doctor reassess kidney function given recent acute kidney injury superimposed on chronic kidney disease. Continue follow-up with your surgery doctor regarding right inguinal hernia. Continue follow-up with your kidney doctor. Please continue nystatin cream for intertrigo under abdominal skin folds. Discharge Attestations Time Spent in Discharge Care*: greater than 30 min Status at Discharge: Cognitive status at discharge: cognitively intact, Behavioral status at discharge: cooperative and independent in ADL's, Quality Metrics Clinical Quality Measures During this hospital stay, did patient experience: None Coding Level of Care Code Acute Chg FW DC note Diagnoses Acute on chronic congestive heart failure I50.9 Acute kidney injury superimposed on CKD N17.9; N18.9 Chest pain R07.9 Intertrigo L30.4
== END 2021-05-14 15:38 | disposition home or self-care (01) ==
LOC: ER 17:51 → CSU 18:06
PROVIDERS: Admitting Provider Internal Medicine; Emergency Provider Emergency Medicine; PCP Internal Medicine; Visit Provider Internal Medicine
DX: E11.22 Type 2 diabetes mellitus with diabetic chronic kidney disease (principal); I13.0 Hypertensive heart and chronic kidney disease with heart failure and stage 1 through stage 4 chronic kidney disease, or unspecified chronic kidney disease; I50.20 Unspecified systolic (congestive) heart failure; N18.9 Chronic kidney disease, unspecified; L30.4 Erythema intertrigo; Z86.718 Personal history of other venous thrombosis and embolism; G47.33 Obstructive sleep apnea (adult) (pediatric); Z79.4 Long term (current) use of insulin; Z79.01 Long term (current) use of anticoagulants; Z79.82 Long term (current) use of aspirin; I25.110 Atherosclerotic heart disease of native coronary artery with unstable angina pectoris; E78.5 Hyperlipidemia, unspecified; E03.9 Hypothyroidism, unspecified; E66.9 Obesity, unspecified; Z68.41 Body mass index [BMI] 40.0-44.9, adult
CPT/HCPCS: 36416; 71045; 80053; 81001; 82962; 83690; 83735; 83880; 84484; 85025; 93005; 94664; 96365; 96366; 96372; 96375; 99285; G0378; J1642; J1815 ×2; J2550; J3010; J3475; J3480; J3490

== ENCOUNTER → 2021-05-23 13:01 | Day surgery (SDC) | payer MEDICARE, MEDICAID, SELFPAY ==
[2021-05-23 13:10] VITALS: BP 150/60; PULSE 73; RESP 18; TEMP 36.1; O2SAT 96
--- NOTE | 2021-05-23 13:30 | PC.NURSE ---
Pt to GI lab for law draw via port. Site to right chest accessed with 19 gauge needle. No blood return noted. Site flushed easily with NS. Pt states he could taste the saline. Unable to draw labs using port. Labs drawn peripherally. Results faxed to Dr. Montanez and Dr. Weiss.
[2021-05-23 14:18] LABS: Basophils % 0.4 %; Eosinophils # 0.2 10^3/uL (0.0-0.8); Eosinophils % 2.3 %; Hematocrit 38.6 % (42.0-52.0); Hemoglobin 12.7 g/dL (11.7-16.6); Lymphocytes # 1.5 10^3/uL (0.8-4.8); Lymphocytes % 15.6 %; Mean Corpuscular HGB Conc 32.9 g/dL (30.0-36.0); Mean Corpuscular Hemoglobin 29.2 pg (28.0-34.0); Mean Corpuscular Volume 88.7 fl (80-94); Mean Platelet Volume 9.5 fL (7.4-10.4); Monocytes % 10.1 %; Neutrophils # 6.88 10^3/uL (1.8-7.7); Neutrophils % 71.3 %; Nucleated Red Blood Cells % 0 %; Platelet Count 308 10^3/cmm (130-400); Red Blood Count 4.35 10^6/uL (4.1-5.3); Red Cell Distribution Width 14.3 % (12.1-15.1); White Blood Count 9.7 10^3/uL (4.0-10.0)
[2021-05-23 14:31] LABS: Creatinine Urine, Random 62 mg/dL (39-259)
[2021-05-23 14:33] LABS: Albumin Level 3.6 g/dL (3.5-5.2); Anion Gap 19.9 (5-19); Blood Urea Nitrogen 77 mg/dL (6-20); Calcium 10.1 mg/dL (8.5-10.5); Carbon Dioxide 33 mmol/L (22-29); Chloride 87 mmol/L (98-107); Glomerular Filtration Rate 19.7 mL/min (90-130); Glucose 110 mg/dL (65-115); Phosphorus 4.7 mg/dL (2.5-4.5); Potassium 3.9 mmol/L (3.5-5.1); Sodium 136 mmol/L (136-145)
[2021-05-23 14:35] LABS: Creatinine Clr Calc Pharmacy 30.6255
[2021-05-23 14:39] LABS: Calcium 10.1 mg/dL (8.5-10.5)
[2021-05-23 14:42] LABS: Microalbum Creatinine Ratio Ur 2387 mg/dL (0-20); Microalbumin Random Urine 148 ug/dL (0-20)
== END ==
PROVIDERS: PCP Internal Medicine; Visit Provider Internal Medicine Nephrology
DX: Z95.828 Presence of other vascular implants and grafts (principal)
CPT/HCPCS: 36415; 80069; 82044; 82310; 83970; J1100; J1200; J2370; J2704; J2710; J3010; J3490

== ENCOUNTER 2021-06-08 12:44 | Outpatient (CLI) | payer MEDICARE, MEDICAID, SELFPAY ==
--- NOTE | 2021-06-08 15:15 | MR_ITS ---
WS: [id number] MRI PELVIS without CONTRAST. COMPARISON: None Multiplanar, multisequence imaging is performed without contrast. There is increased T2 signal within the lateral most RIGHT gluteus kaykay muscle. There is a focal f luid collection probably represents a small tear in the gluteus maximum. Fluid-filled tear measures 2 .9 cm at its maximum. This is at the level of the greater trochanter. There is additional small amoun t of edema within the LEFT vastus lateralis muscle near the anterior hip. There is mild muscle atrophy of the pelvis. No masses are identified. There is no marrow edema or fra cture. No hernia at the inguinal regions. No adenopathy or free fluid within the pelvis. There is mil d narrowing of the hip joints bilaterally. MR/MR pelvis wo con* [id number] IMPRESSION: 1. No inguinal hernia or mass. 2. Increase fluid in the lateral RIGHT gluteus kaykay muscle over the greater trochanter. Suspect there is a partial tear within the muscle. 3. Small amount of edema in the LEFT vastus lateralis muscle over the anterior hip. May be posttraumatic or due to myositis. No muscle tear.
== END 2021-06-08 12:45 | disposition home or self-care (01) ==
LOC: RADSHAW 12:53
PROVIDERS: PCP Internal Medicine; Visit Provider Surgery Surgical Critical Care
DX: F10.21 Alcohol dependence, in remission (principal); F33.2 Major depressive disorder, recurrent severe without psychotic features
CPT/HCPCS: 72195; 99214

== ENCOUNTER → 2021-06-09 09:15 | Day surgery (SDC) | payer MEDICARE, MEDICAID, SELFPAY ==
[2021-06-09 09:25] VITALS: BP 147/58; PULSE 82; RESP 18; TEMP 36.2; O2SAT 97
[2021-06-09 09:51] LABS: Basophils # 0.1 10^3/uL (0.0-0.1); Basophils % 0.8 %; Eosinophils # 0.4 10^3/uL (0.0-0.8); Eosinophils % 3.4 %; Hematocrit 31.3 % (42.0-52.0); Hemoglobin 10.6 g/dL (11.7-16.6); Lymphocytes # 1.2 10^3/uL (0.8-4.8); Lymphocytes % 11.5 %; Mean Corpuscular HGB Conc 33.9 g/dL (30.0-36.0); Mean Corpuscular Volume 85.8 fl (80-94); Mean Platelet Volume 9.3 fL (7.4-10.4); Monocytes # 0.7 10^3/uL (0.2-0.9); Monocytes % 6.8 %; Neutrophils # 8.32 10^3/uL (1.8-7.7); Neutrophils % 76.9 %; Nucleated Red Blood Cells % 0 %; Platelet Count 328 10^3/cmm (130-400); Red Blood Count 3.65 10^6/uL (4.1-5.3); Red Cell Distribution Width 14.4 % (12.1-15.1); White Blood Count 10.8 10^3/uL (4.0-10.0)
[2021-06-09 10:07] LABS: Anion Gap 18.3 (5-19); Blood Urea Nitrogen 65 mg/dL (6-20); Calcium 6.8 mg/dL (8.5-10.5); Carbon Dioxide 29 mmol/L (22-29); Chloride 87 mmol/L (98-107); Glomerular Filtration Rate 17.3 mL/min (90-130); Glucose 140 mg/dL (65-115); Osmolality Calculated 293 mOsm/kg (285-295); Potassium 3.3 mmol/L (3.5-5.1); Sodium 131 mmol/L (136-145)
== END ==
PROVIDERS: PCP Internal Medicine; Visit Provider Internal Medicine Nephrology
DX: N18.30 Chronic kidney disease, stage 3 unspecified (principal)
CPT/HCPCS: 36591; 80048; 85025

== ENCOUNTER 2021-06-09 15:28 | Emergency (ER) | payer MEDICARE, MEDICAID, SELFPAY ==
[2021-06-09 16:46] VITALS: BP 131/78; PULSE 87; RESP 16; TEMP 37.1; O2SAT 92; BMI 41.4
[2021-06-10 01:05] LABS: Basophils # 0.1 10^3/uL (0.0-0.1); Basophils % 0.9 %; Eosinophils # 0.2 10^3/uL (0.0-0.8); Hematocrit 31.1 % (42.0-52.0); Hemoglobin 10.5 g/dL (11.7-16.6); Lymphocytes # 1.8 10^3/uL (0.8-4.8); Lymphocytes % 18.6 %; Mean Corpuscular HGB Conc 33.8 g/dL (30.0-36.0); Mean Corpuscular Hemoglobin 29.6 pg (28.0-34.0); Mean Corpuscular Volume 87.6 fl (80-94); Mean Platelet Volume 9.3 fL (7.4-10.4); Monocytes # 0.9 10^3/uL (0.2-0.9); Monocytes % 9.6 %; Neutrophils # 6.69 10^3/uL (1.8-7.7); Neutrophils % 68.2 %; Nucleated Red Blood Cells % 0 %; Platelet Count 341 10^3/cmm (130-400); Red Blood Count 3.55 10^6/uL (4.1-5.3); Red Cell Distribution Width 14.6 % (12.1-15.1); White Blood Count 9.8 10^3/uL (4.0-10.0)
[2021-06-10 01:20] LABS: Magnesium 1.6 mg/dL (1.7-2.3); Phosphorus 5.2 mg/dL (2.5-4.5)
[2021-06-10 01:21] VITALS: BP 151/58; PULSE 89; RESP 18; O2SAT 93
[2021-06-10 01:21] LABS: Alanine Aminotransferase 11 U/L (0-41); Albumin Level 3.1 g/dL (3.5-5.2); Alkaline Phosphatase 93 IU/L (40-130); Anion Gap 23.2 (5-19); Aspartate Amino Transferase 16 U/L (0-40); Blood Urea Nitrogen 64 mg/dL (6-20); Calcium 7.5 mg/dL (8.5-10.5); Carbon Dioxide 26 mmol/L (22-29); Chloride 87 mmol/L (98-107); Globulin 3.8 g/dL (1.3-4.6); Glomerular Filtration Rate 18.4 mL/min (90-130); Glucose 80 mg/dL (65-115); Osmolality Calculated 293 mOsm/kg (285-295); Potassium 3.2 mmol/L (3.5-5.1); Sodium 133 mmol/L (136-145); Total Bilirubin 0.5 mg/dL (0.15-1.2); Total Protein 6.9 g/dL (6.6-8.7)
[2021-06-10 01:34] VITALS: RESP 19; O2SAT 96
[2021-06-10] MEDS: morphine 4 mg/mL SDV 1 mL IVP ×2 (01:34→03:30)
--- NOTE | 2021-06-10 02:01 | ED_ITS ---
HPI - Recheck/Abnormal Lab/Rx General: Chief Complaint: Recheck/Abnormal Lab/Rx Stated Complaint: LOW CALCIUM Time Seen by Provider: 06/10/21 00:26 History of Present Illness: HPI narrative: 51-year-old gentleman with a history of chronic kidney disease and heart failure. He presents after being called by his PCP and told that he had a low calcium. The patient has noted symptoms of muscle twitching worsening over the last week. He has had some generalized leg weakness. He has had some leg pain as well. No significant increase in trouble breathing. No fever. MD complaint: abnormal lab Symptoms since prior visit: worsening pain Review of Systems Const: Denies: fever(s) or chills Eyes: Denies: change in vision Card: Denies: chest pain Resp: Reports: dyspnea; Denies: productive cough, non-productive cough or wheezing GI: Denies: abdominal pain or vomiting Musc: Reports: muscle cramps and muscle weakness PFSH ED PFSH: Medical History Acute exacerbation of CHF (congestive heart failure) Anemia Atherosclerotic heart disease of [place] coronary artery with other forms of angina pectoris hx of CAD with prior stenting of proximal LAD, LCx, RCA Chronic anticoagulation Eliquis Chronic kidney disease -baseline Cr appears to be around 1.5 Chronic systolic heart failure EF=47%, diffuse LV hypokinesis, mildly increased LA size Depression Diabetes A1c-7.6 (08/2019) Foot drop, left GERD (gastroesophageal reflux disease) H/O acute myocardial infarction H/O deep venous thrombosis developed compartment syndrome Hyperlipidemia Hypertension Hypothyroidism Ischemic cardiomyopathy Major depressive disorder, recurrent severe without psychotic features Obesity (BMI 30-39.9) Osteoarthritis of spine Psychiatric care Recent weight gain Surgical History H/O colonoscopy (11/14/20) 08/2015 H/O esophagogastroduodenoscopy (11/14/20) 08/2015 H/O removal of testicle left H/O skin graft H/O vasectomy History of appendectomy 1995 History of coronary artery stent placement 5x History of excision of mass 06/08/2019: Subcutaneous mass on back History of inguinal hernia repair, bilateral 1999 History of removal of Port-a-Cath Hx of cholecystectomy Port-A-Cath in place Family History Grandfather Cancer skin cancer Parkinson disease Brother Hypertension Father Heart disease Mother Hypertension Stroke Aneurysm Grandmother Aneurysm Other Crohn disease Denies family history of Anesthesia complication Bleeding disorder Social History Smoking and tobacco status: never smoked Second hand smoke exposure: No Alcohol intake: former Former alcohol use details: Only holidays Lives independently: Yes Household members: significant other Marital status: Single Current occupational status: disabled History of recent travel: No Physical Exam Const: COMMON NORMALS: no acute distress GENERAL APPEARANCE: cooperative HENMT: COMMON NORMALS: normocephalic HEAD & SCALP: normocephalic Eye: COMMON NORMALS: Equal, round and reactive pupils present and EOMs intact bilaterally PUPIL: Yes Equal, round and reactive pupils present Chest: COMMONS NORMALS: normal inspection of the chest Resp: COMMON NORMALS: normal respiratory effort, No use of accessory muscles and clear to auscultation bilaterally AUSCULTATION: clear to auscultation bilaterally Cardio: COMMON NORMALS: regular rate and regular rhythm RATE: regular rate RHYTHM: regular rhythm GI: COMMON NORMALS: Normal to inspection, nondistended, normoactive bowel sounds present and Soft to palpation PALPATION: Yes Soft to palpation Course Vital Signs: Vital signs: Vital Signs Temperature 98.7 F 06/09/21 16:46 Pulse Rate 93 06/10/21 05:35 Respiratory Rate 18 06/10/21 05:35 Blood Pressure 154/66 06/10/21 05:35 Pulse Oximetry 97 06/10/21 05:35 MDM - Recheck/Abnormal Lab/Rx MDM Narrative: Medical decision making narrative: 51-year-old male presents with muscle twitching worsening over the last week. He was noted to have a low calcium as an outpatient. His calcium is improved here, but still low. He also had low potassium and magnesium. These were all replenished in the emergency room. He has a significant decrease in muscle twitching on repeat exam. He is much more comfortable. He required some oxygen at times here, but has been sleeping, and uses a CPAP at home. This is likely related to apnea more than anything. With improvement in his condition, he will be allowed discharge for close outpatient follow-up. He should have a repeat BMP on Saturday. Lab Data: Labs: Lab Results 06/10/21 06/10/21 06/10/21 00:30 00:30 00:30 WBC 9.8 10^3/uL 10^3/ uL (4.0-10.0) RBC 3.55 10^6/uL L 10 ^6/uL (4.1-5.3) Hgb 10.5 g/dL L g/dL (11.7-16.6) Hct 31.1 % L % (42.0-52.0) MCV 87.6 fl fl (80-94) MCH 29.6 pg pg (28.0-34.0) MCHC 33.8 g/dL g/dL (30.0-36.0) RDW 14.6 % % (12.1-15.1) Plt Count 341 10^3/cmm 10^3 /cmm (130-400) MPV 9.3 fL fL (7.4-10.4) Neut % (Auto) 68.2 % % Lymph % (Auto) 18.6 % % [place] % (Auto) 9.6 % % Eos % (Auto) 2.0 % % Baso % (Auto) 0.9 % % Neut # (Auto) 6.69 10^3/uL 10^3 /uL (1.8-7.7) Lymph # (Auto) 1.8 10^3/uL 10^3/ uL (0.8-4.8) [place] # (Auto) 0.9 10^3/uL 10^3/ uL (0.2-0.9) Eos # (Auto) 0.2 10^3/uL 10^3/ uL (0.0-0.8) Baso # (Auto) 0.1 10^3/uL 10^3/ uL (0.0-0.1) Nucleated RBC % (a uto) 0 % % Nucleated RBCs # 0.0 /100WBC /100W BC Sodium 133 mmol/L L mmol /L (136-145) Potassium 3.2 mmol/L L mmol /L (3.5-5.1) Chloride 87 mmol/L L mmol/ L (98-107) Carbon Dioxide 26 mmol/L mmol/L (22-29) Anion Gap 23.2 H (5-19) BUN 64 mg/dL H mg/dL (6-20) Creatinine 3.5 mg/dL H mg/dL (0.7-1.2) GFR Calculation 18.4 mL/min L mL/ min (90-130) Glucose 80 mg/dL mg/dL (65-115) Calculated Osmolal ity 293 mOsm/kg mOsm/ kg (285-295) Calcium 7.5 mg/dL L mg/dL (8.5-10.5) Phosphorus 5.2 mg/dL H mg/dL (2.5-4.5) Magnesium 1.6 mg/dL L mg/dL (1.7-2.3) Total Bilirubin 0.5 mg/dL mg/dL (0.15-1.2) AST 16 U/L U/L (0-40) ALT 11 U/L U/L (0-41) Alkaline Phosphata se 93 IU/L IU/L (40-130) Total Protein 6.9 g/dL g/dL (6.6-8.7) Albumin 3.1 g/dL L g/dL (3.5-5.2) Globulin 3.8 g/dL g/dL (1.3-4.6) Urine Color Urine Appearance Urine pH Ur Specific Gravit y Urine Protein Urine Glucose (UA) Urine Ketones Urine Blood Urine Nitrate Urine Bilirubin Urine Urobilinogen Ur Leukocyte Carmen ase Urine RBC Urine WBC Ur Squamous Epith Cells Amorphous Sediment Urine Bacteria 06/10/21 03:02 WBC RBC Hgb Hct MCV MCH MCHC RDW Plt Count MPV Neut % (Auto) Lymph % (Auto) [place] % (Auto) Eos % (Auto) Baso % (Auto) Neut # (Auto) Lymph # (Auto) [place] # (Auto) Eos # (Auto) Baso # (Auto) Nucleated RBC % (a uto) Nucleated RBCs # Sodium Potassium Chloride Carbon Dioxide Anion Gap BUN Creatinine GFR Calculation Glucose Calculated Osmolal ity Calcium Phosphorus Magnesium Total Bilirubin AST ALT Alkaline Phosphata se Total Protein Albumin Globulin Urine Color Yellow (Yellow) Urine Appearance Clear (CLEAR) Urine pH 5 (5-7) Ur Specific Gravit y 1.007 (1.005-1.030) Urine Protein 2+ H (Negative) Urine Glucose (UA) Norm (Normal) Urine Ketones Negative (Negative) Urine Blood Trace H (Negative) Urine Nitrate Negative (Negative) Urine Bilirubin Neg (Negative) Urine Urobilinogen Norm mg/dL mg/dL (Negative) Ur Leukocyte Carmen ase Negative (Negative) Urine RBC 0-4 /hpf H /hpf (0-2) Urine WBC 0-4 /hpf H /hpf (0-5) Ur Squamous Epith Cells 0-4 /hpf H /hpf (0-5) Amorphous Sediment Not Reportable Urine Bacteria Trace /hpf /hpf (NONE) Discharge Plan Discharge Patient Disposition: Home Clinical Impression: Hypocalcemia, Acute kidney injury superimposed on CKD, Acute hypokalemia, Hypomagnesemia Condition: Stable Prescriptions: No Action trazodone 100 mg tablet 300 mg PO BEDTIME PRN (Reason: insomnia) Qty: 90 RF: 2 citalopram 40 mg tablet 40 mg PO DAILY Qty: 30 RF: 2 bupropion HCl [Wellbutrin XL] 150 mg tablet extended release 24 hr 150 mg PO QAM Qty: 30 RF: 2 multivitamin [Daily Multi-Vitamin] Tablet 1 tab PO QPM RF: 0 Trulicity 0.75 mg/0.5 mL pen injector 0.75 mg SUBCUT Q7D RF: 0 aspirin 81 mg tablet,delayed release (DR/EC) 81 mg PO DAILY@0600 RF: 0 promethazine 25 mg tablet 25 mg PO Q6H PRN (Reason: Pain) RF: 0 nitroglycerin [Nitrostat] 0.4 mg tablet, sublingual 0.4 mg SUBLINGUAL Q5M PRN (Reason: Chest Pain) Qty: 25 RF: 2 isosorbide mononitrate 30 mg tablet extended release 24 hr 30 mg PO BID@0600,1800 Qty: 180 RF: 3 insulin lispro [Humalog U-100 Insulin] 100 unit/mL solution See Rx Instructions .ROUTE .COMPLEX RF: 0 Eliquis 5 mg tablet 5 mg PO Q12H Qty: 60 RF: 0 amlodipine 5 mg Tablet 5 mg PO DAILY Qty: 0 RF: 0 metoprolol tartrate 50 mg tablet 25 mg PO BID@0600,1800 Qty: 0 RF: 0 cyclobenzaprine 10 mg tablet 10 mg PO TID PRN (Reason: MUSCLE SPASMS) RF: 0 atorvastatin 40 mg tablet 40 mg PO QAM RF: 0 ranolazine [Ranexa] 500 mg tablet extended release 12 hr 500 mg PO BID RF: 0 levothyroxine 88 mcg tablet 88 mcg PO QAM RF: 0 Tresiba FlexTouch U-200 200 unit/mL (3 mL) insulin pen 30 unit SUBCUT BEDTIME RF: 0 gabapentin 600 mg tablet 600 mg PO TID RF: 0 metolazone 5 mg tablet 5 mg PO DAILY RF: 0 potassium chloride 20 mEq tablet,ER particles/crystals 20 meq PO BID RF: 0 lidocaine 5 % adhesive patch,medicated 1 patch transdermal PRN PRN (Reason: Pain) RF: 0 bupropion HCl 150 mg tablet extended release 24 hr 150 mg PO DAILY RF: 0 Discharge Orders: Discharge ED (Routine); Ordered 06/10/21 Ordered By: Guillermo Cohen Referrals: Kp Montanez DO [Primary Care Provider] - 1-3 days Discharge Diet: Advance as tolerated Discharge Activity: Increase activity as tolerated Patient Instructions: Chronic Kidney Disease (ED), Hypokalemia (ED), Hypocalcemia (ED), Hypomagnesemia (ED) Activity Restrictions/Additional Instructions: You should call your doctor Saturday morning. You should have your blood drawn for repeat calcium, potassium, and magnesium levels this is to ensure they are staying up. Return for worsening muscle twitching, mental status changes, shortness of breath, swelling, fever, any other concerning symptoms. Coding Level of Care Code ED Fe[facility] [employer] for Aaron Fwd Exam Detailed
[2021-06-10] MEDS: calcium gluconate 0.9% NaCL 1 GM/50 ML PREMIX IV (02:10)
[2021-06-10] MEDS: sodium chloride 0.9% 1,000 ML 999 ML IV (02:13)
[2021-06-10] MEDS: potassium chloride oral liq 20 mEq/15 mL UDC 40 MEQ PO (02:16)
[2021-06-10 03:30] VITALS: RESP 17; O2SAT 96
[2021-06-10 03:34] VITALS: BP 135/74; PULSE 90; RESP 17; O2SAT 94
[2021-06-10 03:45] LABS: Add Urine Microscopic? YES; Bilirubin Urine Neg (Negative); Blood Urine Trace (Negative); Glucose Urine UA Norm (Normal); Ketones Urine Negative (Negative); Leukocyte Esterase Urine Negative (Negative); Nitrate Urine Negative (Negative); Protein Urine 2+ (Negative); Specific Gravity, Urine 1.007 (1.005-1.030); Urine Appearance Clear (CLEAR); Urine Color Yellow (Yellow); Urobilinogen Urine Norm (Negative); pH Urine 5 (5-7)
[2021-06-10 03:47] LABS: Squamous Epithelial Cell Urine 0-4 /hpf (0-5); WBC Urine 0-4 /hpf (0-5)
[2021-06-10 03:49] LABS: Bacteria Urine TRACE /hpf
[2021-06-10 03:50] LABS: Add Urine Culture? No; RBC Urine 0-4 /hpf (0-2)
[2021-06-10] MEDS: potassium chloride ER 20 mEq Tablet PO (05:32)
[2021-06-10 05:35] VITALS: BP 154/66; PULSE 93; RESP 18; O2SAT 97
== END 2021-06-10 05:43 | disposition home or self-care (01) ==
PROVIDERS: Family Medicine; Physician Assistant; Emergency Provider Emergency Medicine; PCP Internal Medicine
DX: E83.51 Hypocalcemia (principal); I13.0 Hypertensive heart and chronic kidney disease with heart failure and stage 1 through stage 4 chronic kidney disease, or unspecified chronic kidney disease; E11.22 Type 2 diabetes mellitus with diabetic chronic kidney disease; N17.9 Acute kidney failure, unspecified; N18.9 Chronic kidney disease, unspecified; I50.9 Heart failure, unspecified; E87.6 Hypokalemia; E83.42 Hypomagnesemia; Z79.82 Long term (current) use of aspirin; Z79.01 Long term (current) use of anticoagulants; Z79.4 Long term (current) use of insulin; I25.10 Atherosclerotic heart disease of native coronary artery without angina pectoris; I25.2 Old myocardial infarction; E78.5 Hyperlipidemia, unspecified
CPT/HCPCS: 80053; 81001; 83735; 84100; 85025; 96365; 96367; 96375; 96376; 99284; J0610; J2270; J3475; J7030

== ENCOUNTER → 2021-06-12 10:37 | Outpatient (BNVA) | payer MEDICARE, MEDICAID, SELFPAY | PROVIDERS: PCP Internal Medicine; Referring Provider Internal Medicine Nephrology; Visit Provider Surgery | DX: N18.9 Chronic kidney disease, unspecified (principal); Z79.01 Long term (current) use of anticoagulants; Z20.822 Contact with and (suspected) exposure to COVID-19 | CPT/HCPCS: 87635 ==

== ENCOUNTER 2021-06-14 03:44 | Emergency (ER) | payer MEDICARE, MEDICAID, SELFPAY ==
[2021-06-14 03:50] VITALS: BP 136/61; PULSE 77; RESP 16; TEMP 36.4; O2SAT 96; BMI 40.5
--- NOTE | 2021-06-14 04:17 | W.ED.GENADLT ---
HPI - General Adult General: Chief complaint: General Medical Stated complaint: Knee Still Bleeding Time Seen by Provider: 06/14/21 03:47 Source: patient Mode of arrival: ambulatory Limitations: no limitations History of Present Illness: 51-year-old male who fell roughly 7 hours ago has abrasions to his right knee and states that he is not able to get the bleeding to stop. Appears to just have slight who is he is on Lovenox currently. He has had just a dressing over it with minimal pressure. Denies any pain is able to ambulate denies any injuries to his knee besides the abrasions. Associated symptoms: Deny chest pain, dyspnea, headache(s), nausea, rash or vomiting Review of Systems Const: Denies: fever(s), chills, body aches or change in appetite Eyes: Denies: blurry vision or eye discomfort ENMT: Denies: throat pain or dental pain Card: Denies: chest pain Resp: Denies: dyspnea GI: Denies: abdominal pain, nausea, vomiting or diarrhea : Denies: dysuria Musc: Denies: neck pain or back pain Skin/Breast: Denies: rash Neuro: Denies: headache(s) Psych: Denies: depression Dewey/Lymph: Denies: easy bruising All/Imm: Denies: urticaria PFSH ED PFSH: Medical History Acute on chronic congestive heart failure Anemia Atherosclerotic heart disease of [place] coronary artery with other forms of angina pectoris hx of CAD with prior stenting of proximal LAD, LCx, RCA Chronic anticoagulation Eliquis Chronic kidney disease -baseline Cr appears to be around 1.5 Chronic systolic heart failure EF=47%, diffuse LV hypokinesis, mildly increased LA size Depression Diabetes A1c-7.6 (08/2019) Foot drop, left GERD (gastroesophageal reflux disease) H/O acute myocardial infarction H/O deep venous thrombosis developed compartment syndrome Hyperlipidemia Hypertension Hypothyroidism Ischemic cardiomyopathy Major depressive disorder, recurrent severe without psychotic features Osteoarthritis of spine Surgical History H/O colonoscopy (11/14/20) 08/2015 H/O esophagogastroduodenoscopy (11/14/20) 08/2015 H/O removal of testicle left H/O skin graft H/O vasectomy History of appendectomy 1995 History of coronary artery stent placement 5x History of excision of mass 06/08/2019: Subcutaneous mass on back History of inguinal hernia repair, bilateral 1999 History of removal of Port-a-Cath Hx of cholecystectomy Port-A-Cath in place Family History Grandfather Cancer skin cancer Parkinson disease Brother Hypertension Father Heart disease Mother Hypertension Stroke Aneurysm Grandmother Aneurysm Other Crohn disease Denies family history of Anesthesia complication Bleeding disorder Social History Smoking and tobacco status: never smoked Second hand smoke exposure: No Alcohol intake: former Former alcohol use details: Only holidays Lives independently: Yes Household members: significant other Marital status: Single Current occupational status: disabled History of recent travel: No Physical Exam Const: COMMON NORMALS: no acute distress, patient oriented x3 and healthy appearing HENMT: COMMON NORMALS: normocephalic and atraumatic HEAD & SCALP: normocephalic and atraumatic Eye: COMMON NORMALS: Equal, round and reactive pupils present and EOMs intact bilaterally PUPIL: Yes Equal, round and reactive pupils present Neck/C-Spine: COMMON NORMALS: full ROM and supple Chest: COMMONS NORMALS: normal inspection of the chest and normal palpation of entire chest wall Resp: COMMON NORMALS: normal respiratory effort, No retractions, No use of accessory muscles and clear to auscultation bilaterally AUSCULTATION: clear to auscultation bilaterally Cardio: COMMON NORMALS: regular rate, regular rhythm and No murmurs present (Cardio) RATE: regular rate RHYTHM: regular rhythm GI: COMMON NORMALS: Normal to inspection, nondistended, normoactive bowel sounds present, Soft to palpation, non-tender and no masses PALPATION: Yes Soft to palpation Extremity: COMMON NORMALS: full ROM NARRATIVE EXTREMITY EXAM: Superficial abrasion to right knee with slight bleeding no heavy bleeding at this time Neuro: COMMON NORMALS: patient oriented x3, moves all extremities and no focal motor deficits Psych: COMMON NORMALS: mental status grossly normal, Normal thought process present and cooperative THOUGHT PROCESS: Normal thought process present Skin: COMMON NORMALS: no rashes or lesions noted and no wounds GENERAL SKIN EXAM: no rashes or lesions noted Course Vital Signs: Vital signs: Vital Signs Temperature 97.6 F 06/14/21 03:50 Pulse Rate 77 06/14/21 03:50 Respiratory Rate 16 06/14/21 03:50 Blood Pressure 136/61 06/14/21 03:50 Pulse Oximetry 96 06/14/21 03:50 [facility] - General Adult Medical Decision Making Patient presents here with an abrasion to his right knee did have some slight oozing from one spot that I use a silver nitrate stick on and then placed a pressure dressing no longer bleeding he stable for discharge return if worsening follow-up with PCP. Discharge Plan Discharge Patient Disposition: Home Clinical Impression: Abrasion of knee, right Condition: Stable Prescriptions: No Action trazodone 100 mg tablet 300 mg PO BEDTIME PRN (Reason: insomnia) Qty: 90 2RF citalopram 40 mg tablet 40 mg PO DAILY Qty: 30 2RF bupropion HCl [Wellbutrin XL] 150 mg tablet extended release 24 hr 150 mg PO QAM Qty: 30 2RF enoxaparin [Lovenox] 120 mg/0.8 mL syringe 120 mg SUBCUT BID 4 Days Qty: 6.4 0RF multivitamin [Daily Multi-Vitamin] Tablet 1 tab PO QPM 0RF Trulicity 0.75 mg/0.5 mL pen injector 0.75 mg SUBCUT Q7D 0RF Rx Instructions: ON SAT aspirin 81 mg tablet,delayed release (DR/EC) 81 mg PO DAILY@0600 0RF promethazine 25 mg tablet 25 mg PO Q6H PRN (Reason: Pain) 0RF bumetanide 2 mg tablet 4 mg PO TID 0RF nitroglycerin [Nitrostat] 0.4 mg tablet, sublingual 0.4 mg SUBLINGUAL Q5M PRN (Reason: Chest Pain) Qty: 25 2RF isosorbide mononitrate 30 mg tablet extended release 24 hr 30 mg PO BID@0600,1800 Qty: 180 3RF insulin lispro [Humalog U-100 Insulin] 100 unit/mL solution See Rx Instructions .ROUTE .COMPLEX 0RF Rx Instructions: SLIDING SCALE BID @06,18 Eliquis 5 mg tablet 5 mg PO Q12H Qty: 60 0RF amlodipine 5 mg Tablet 5 mg PO DAILY Qty: 0 0RF metoprolol tartrate 50 mg tablet 25 mg PO BID@0600,1800 Qty: 0 0RF cyclobenzaprine 10 mg tablet 10 mg PO TID PRN (Reason: MUSCLE SPASMS) 0RF atorvastatin 40 mg tablet 40 mg PO QAM 0RF ranolazine [Ranexa] 500 mg tablet extended release 12 hr 500 mg PO BID 0RF levothyroxine 88 mcg tablet 88 mcg PO QAM 0RF Tresiba FlexTouch U-200 200 unit/mL (3 mL) insulin pen 30 unit SUBCUT BEDTIME 0RF gabapentin 600 mg tablet 600 mg PO TID 0RF lidocaine 5 % adhesive patch,medicated 1 patch transdermal PRN PRN (Reason: Pain) 0RF metolazone 5 mg tablet 5 mg PO Q48H 0RF potassium chloride 20 mEq tablet,ER particles/crystals 40 meq PO .COMPLEX 0RF Rx Instructions: 40 mEq PO Take 2 tabs in morning and afternoon and 1 tab in evening; Discharge Orders: Discharge ED (Routine); Ordered 06/14/21 Ordered By: Moses Gauthier Referrals: Kp Montanez, [Primary Care Provider] - Discharge Diet: Advance as tolerated Discharge Activity: Resume usual activity Patient Instructions: Abrasion (ED) Coding Level of Care Code ED Success Coach for Aaron Irene
[2021-06-14] MEDS: silver nitrate applicator 1 EACH TOPICAL (04:22)
== END 2021-06-14 04:20 | disposition home or self-care (01) ==
PROVIDERS: Emergency Provider Emergency Medicine; PCP Internal Medicine
DX: S80.211A Abrasion, right knee, initial encounter (principal); Z79.01 Long term (current) use of anticoagulants; Z79.82 Long term (current) use of aspirin; Z79.4 Long term (current) use of insulin; I25.10 Atherosclerotic heart disease of native coronary artery without angina pectoris; I11.0 Hypertensive heart disease with heart failure; I50.22 Chronic systolic (congestive) heart failure; E11.9 Type 2 diabetes mellitus without complications; I25.2 Old myocardial infarction; E78.5 Hyperlipidemia, unspecified; W19.XXXA Unspecified fall, initial encounter
CPT/HCPCS: 99282

== ENCOUNTER 2021-06-15 07:15 | Day surgery (SDC) | payer MEDICARE, MEDICAID, SELFPAY ==
[2021-06-14 11:01] VITALS: BMI 40.3
[2021-06-15] VITALS (14 sets, daily range): BP systolic 119–167; BP diastolic 54–88; PULSE 70–85; RESP 16–18; TEMP 36.1–36.8; O2SAT 92–99
--- NOTE | 2021-06-15 07:57 | W.PM.OPSUD ---
Surgery/Procedure H&P Update DATE OF PROCEDURE: June 15, 2021 DATE H&P PERFORMED: 06/12/21 PREOP DIAGNOSIS: Bleeding per rectum PRIMARY INDICATION FOR PROCEDURE: ckd for pd catheter PLANNED PROCEDURE: Operation Date: 06/15/21 08:00 Proposed Procedures p Peritoneal Catheter Insertion [id number](Not Applicable) - Juventino Lopez MD
--- NOTE | 2021-06-15 08:07 | W.PM.OPSUD ---
Surgery/Procedure H&P Update DATE OF PROCEDURE: June 15, 2021 DATE H&P PERFORMED: 06/12/21 H&P UPDATE INFORMATION: I have reviewed H&P completed within last 30 days, I have examined patient prior to procedure and No changes to prior documentation PREOP DIAGNOSIS: Bleeding per rectum PLANNED PROCEDURE: Operation Date: 06/15/21 08:00 Proposed Procedures p Peritoneal Catheter Insertion [id number](Not Applicable) - Juventino Lopez MD
[2021-06-15 08:10] LABS: Glucose Point of Care 186 mg/dL (70-110)
[2021-06-15] MEDS: sodium chloride 0.9% 1,000 ML 30 ML IV (08:10)
--- NOTE | 2021-06-15 08:12 | ANES.PREANE2 ---
Pre-Anesthetic Assessment Height/Weight: Height 1.68 m Weight 113.398 kg Temp Pulse Resp BP Pulse Ox 97 F L 85 18 126/54 93 06/15/21 07:32 06/15/21 07:32 06/15/21 07:32 06/15/21 07:32 06/15/21 07:32 Preop Diagnosis: Bleeding per rectum Operation Date: 06/15/21 08:00 Proposed Procedures p Peritoneal Catheter Insertion [id number](Not Applicable) - Juventino Lopez MD Was Beta Sam taken within 24 hours: Yes Was Clonidine taken within 24 hours: N/A Last intake: Intake Last Liquid Date 06/14/21 Last Liquid Time 23:30 Last Solid Date 06/14/21 Last Solid Time 21:00 Social Alcohol and No alcohol Airway Submandibular: within normal limits Cervical ROM: within normal limits Mallampati: Class II Dentition: chipped CV/HEM Coronary Artery Disease (stents), Deep Vein Thrombosis and Hypertension anticoagulation Chronic Renal Insufficiency GI Gastroesophageal Reflux Disease Metabolic Diabetes Mellitus, Hyperlipidemia and Morbid Obesity Neuropsych Anxiety and Depression Anesthetic Plan ASA status: 3 Anesthesia: General Risk of > 500 ml blood loss (7ml/kg in children): No Medications/Allergies Home Medications Medication Instructions Recorded Confirmed Last Taken Type aspirin 81 mg tablet,delayed 81 mg PO DAILY@0600 06/01/19 06/14/21 06/12/21 History release dulaglutide 0.75 mg/0.5 mL 0.75 mg SUBCUT Q7D 06/01/19 06/15/21 06/10/21 History subcutaneous pen injector (Trulicity) multivitamin (Daily Multi-Vitamin) 1 tab PO QPM 06/01/19 06/15/21 1 Day Ago History ~06/14/21 cyclobenzaprine 10 mg tablet 10 mg PO TID PRN 01/07/20 06/15/21 1 Day Ago History ~06/14/21 insulin lispro 100 unit/mL See Rx Instructions .ROUTE .COMPLEX 09/25/20 06/15/21 1 Day Ago History subcutaneous solution (Humalog ~06/14/21 U-100 Insulin) nitroglycerin 0.4 mg sublingual 0.4 mg SUBLINGUAL Q5M PRN #25 tab 10/10/20 06/14/21 06/09/21 Rx tablet (Nitrostat) atorvastatin 40 mg tablet 40 mg PO QAM 11/04/20 06/15/21 1 Day Ago History ~06/14/21 ranolazine 500 mg tablet,extended 500 mg PO BID 01/08/21 06/15/21 1 Day Ago History release,12 hr (Ranexa) ~06/14/21 insulin degludec 200 unit/mL (3 30 unit SUBCUT BEDTIME 02/09/21 06/15/21 1 Day Ago History mL) subcutaneous pen (Tresiba ~06/14/21 FlexTouch U-200 insulin) levothyroxine 88 mcg tablet 88 mcg PO QAM 02/09/21 06/15/21 1 Day Ago History ~06/14/21 promethazine 25 mg tablet 25 mg PO Q6H PRN 02/22/21 06/15/21 1 Day Ago History ~06/14/21 apixaban 5 mg tablet (Eliquis) 5 mg PO Q12H #60 tab 03/27/21 06/14/21 06/12/21 Rx amlodipine 5 mg tablet 5 mg PO DAILY #0 tab 04/17/21 06/15/21 1 Day Ago Rx ~06/14/21 metoprolol tartrate 50 mg tablet 25 mg PO BID@0600,1800 #0 tab 04/17/21 06/15/21 1 Day Ago Rx ~06/14/21 gabapentin 600 mg tablet 600 mg PO TID 05/12/21 06/15/21 1 Day Ago History ~06/14/21 lidocaine 5 % topical patch 1 patch TRANSDERMAL PRN PRN 05/12/21 06/14/21 06/09/21 History isosorbide mononitrate 30 mg 30 mg PO BID@0600,1800 #180 tab 05/22/21 06/15/21 1 Day Ago Rx tablet,extended release 24 hr ~06/14/21 bupropion HCl 150 mg 24 hr tablet, 150 mg PO QAM #30 tab 06/08/21 06/15/21 1 Day Ago Rx extended release (Wellbutrin XL) ~06/14/21 citalopram 40 mg tablet 40 mg PO DAILY #30 tab 06/08/21 06/15/21 1 Day Ago Rx ~06/14/21 trazodone 100 mg tablet 300 mg PO BEDTIME PRN #90 tab 06/08/21 06/15/21 1 Day Ago Rx ~06/14/21 enoxaparin 120 mg/0.8 mL 120 mg (0.8 mL) SUBCUT BID 4 Days 06/12/21 06/15/21 1 Day Ago Rx subcutaneous syringe (Lovenox) #6.4 ml ~06/14/21 bumetanide 2 mg tablet 4 mg PO TID tab 06/13/21 06/15/21 1 Day Ago History ~06/14/21 metolazone 5 mg tablet 5 mg PO Q48H tab 06/13/21 06/15/21 1 Day Ago History ~06/14/21 potassium chloride 20 mEq 40 meq PO .COMPLEX tab 06/13/21 06/14/21 Unknown History tablet,extended release(part/cryst) hydrocodone 5 mg-acetaminophen 325 1 tab PO Q6H PRN #20 tab 06/15/21 Unknown Rx mg tablet Allergies Allergy/AdvReac Type Severity Reaction Status Date / Time Iodinated Contrast Media Allergy Severe ALGY-Difficulty Verified 06/15/21 07:46 Breathing iodine Allergy Severe ALGY-Difficulty Verified 06/15/21 07:46 Breathing metoclopramide [From Reglan] Allergy Severe ALGY-Difficulty Verified 06/15/21 07:46 Breathing nalbuphine [From Nubain] Allergy Severe ADR-Diarrhe Verified 06/15/21 07:46 a naproxen [From Naprosyn] Allergy Severe ADR-Vomitin Verified 06/15/21 07:46 g Sulfa (Sulfonamide Allergy Severe ALGY-Difficulty Verified 06/15/21 07:46 Antibiotics) Breathing ketorolac Allergy Intermediate ADR-Nausea Verified 06/15/21 07:46 ondansetron [From Zofran] Allergy Intermediate ADR-Abdominal Verified 06/15/21 07:46 Pain prochlorperazine Allergy Intermediate ADR-Irritab Verified 06/15/21 07:46 [From Compazine] le codeine AdvReac Severe ALGY-Anaphy Verified 06/15/21 07:46 laxis haloperidol [From Haldol] AdvReac Intermediate ADR-Irritab Verified 06/13/21 10:13 le [facility] Anesthesia Medical History (Updated 06/15/21 @ 08:12 by Juventino Lopez MD) Acute on chronic congestive heart failure Anemia Atherosclerotic heart disease of [place] coronary artery with other forms of angina pectoris hx of CAD with prior stenting of proximal LAD, LCx, RCA Chronic anticoagulation Eliquis Chronic kidney disease -baseline Cr appears to be around 1.5 Chronic systolic heart failure EF=47%, diffuse LV hypokinesis, mildly increased LA size Depression Diabetes A1c-7.6 (08/2019) Foot drop, left GERD (gastroesophageal reflux disease) H/O acute myocardial infarction H/O deep venous thrombosis developed compartment syndrome Hyperlipidemia Hypertension Hypothyroidism Ischemic cardiomyopathy Major depressive disorder, recurrent severe without psychotic features Osteoarthritis of spine Surgical History (Updated 06/15/21 @ 08:12 by Juventino Lopez MD) H/O colonoscopy (11/14/20) 08/2015 H/O esophagogastroduodenoscopy (11/14/20) 08/2015 H/O removal of testicle left H/O skin graft H/O vasectomy History of appendectomy 1995 History of coronary artery stent placement 5x History of excision of mass 06/08/2019: Subcutaneous mass on back History of inguinal hernia repair, bilateral 1999 History of removal of Port-a-Cath Hx of cholecystectomy Peritoneal dialysis catheter in situ (06/15/21) Port-A-Cath in place Family History Grandfather Cancer skin cancer Parkinson disease Brother Hypertension Father Heart disease Mother Hypertension Stroke Aneurysm Grandmother Aneurysm Other Crohn disease Denies family history of Anesthesia complication Bleeding disorder Social History Smoking and tobacco status: never smoked Second hand smoke exposure: No Alcohol intake: former Former alcohol use details: Only holidays Lives independently: Yes Household members: significant other Marital status: Single Current occupational status: disabled History of recent travel: No Data Anesthesia Cardiac Studies: Echocardiogram 04/13/21 Echocardiogram Limited Views 12/02/19 Echocardiogram Ultrasound 03/19/20 Sestamibi Stress Test (Cardiology) 09/11/19
[2021-06-15] MEDS: heparin, porcine 1,000 unit/mL INJ 10 mL 10000 UNIT IRRIGATION (08:41)
--- NOTE | 2021-06-15 08:59 | PM.OP ---
Operative Report Date of procedure: June 15, 2021 Pre-op diagnosis: Preop Diagnosis CKD requiring dialysis Post-op diagnosis: CKD requiring dialysis Specimens removed/disposition: none Pathology: none sent Surgeon: Juventino Lopez Anesthesia: General Estimated blood loss (mL): 5 Condition: stable Disposition: PACU Related Problem List Diagnoses (1) CRF (chronic renal failure):
--- NOTE | 2021-06-15 09:05 | PM.OP ---
Operative Report Date of procedure: June 15, 2021 Pre-op diagnosis: Chronic kidney disease Post-op diagnosis: same Procedure done: Laparoscopic placement of peritoneal dialysis catheter Pathology: none sent Surgeon: Juventino Lopez Anesthesia: General Condition: stable Disposition: PACU Procedure: The patient was taken to the operating room and intubated under general anesthesia after IV antibiotic had been administered. The abdomen was prepped and draped in a sterile manner. Using 15 blade a 1 cm incision was made in the left upper quadrant and a Veress needle introduced to create 15 mm of pneumoperitoneum. Using Optiview technique, a 5 mm port was placed and a 5 mm 30? scope was introduced. Another 5 mm port was placed in the left lower quadrant at the level of the umbilicus in the midclavicular line. The pigtail peritoneal dialysis catheter was placed on the abdominal wall and the position marked, an introducer needle was passed through the abdominal wall to the right of the midline inferior to the umbilicus, guidewire passed through the introducer needle, the needle was removed and a dilator sheath was placed over the guidewire and inner dilator and guidewire was removed. The pigtail catheter was introduced as the peel-away sheath was removed with the tip of the catheter in the pelvis and the cuff within the rectus muscle. The catheter was tunneled proximally to exit in the right upper quadrant. A subcutaneous pocket was created. The catheter was attached to a saline bag and there was good inflow and outflow noted. 5 mL of 1:10,000 heparin was injected into the tube. The ports were removed under direct visualization and there was no bleeding from the port sites. A small subcutaneous pocket was created using hemostats and the tip of the catheter was coiled into subcutaneous place. The subcutaneous tissue was approximated using 3-0 Vicryl suture. The skin at all the incisions were closed using 4-0 Monocryl and Dermabond. The patient was extubated and transferred to recovery room in stable condition.
[2021-06-15] MEDS: fentaNYL 50 mcg/mL INJ 2mL IVP (09:34)
--- NOTE | 2021-06-15 11:17 | PC.NURSE ---
PT'S PORT A CATH DE ACESSED PER HOSPITAL PROTOCOL
--- NOTE | 2021-06-15 13:06 | ANE.PACU2 ---
Inpatient post-anesthesia follow up: Airway intact: Yes Vital signs: Temperature 97.3 F Pulse Rate 80 Respiratory Rate 18 Blood Pressure 167/83 Pulse Oximetry 92 Oxygen Delivery Me thod Room Air Oxygen Flow Rate 6 Fraction of Inspir ed Oxygen Hydration adequate: Yes Nausea and vomiting: No Pain level: 1 Mental status: Baseline
== END 2021-06-15 11:10 | disposition home or self-care (01) ==
PROVIDERS: PCP Internal Medicine; Visit Provider Surgery
PROC: (CPT 49324; principal; 2021-06-15 08:00)
DX: I12.9 Hypertensive chronic kidney disease with stage 1 through stage 4 chronic kidney disease, or unspecified chronic kidney disease (principal); N18.9 Chronic kidney disease, unspecified; I25.110 Atherosclerotic heart disease of native coronary artery with unstable angina pectoris; Z95.5 Presence of coronary angioplasty implant and graft; Z79.01 Long term (current) use of anticoagulants; F41.9 Anxiety disorder, unspecified; F32.9 Major depressive disorder, single episode, unspecified; Z79.82 Long term (current) use of aspirin; Z86.718 Personal history of other venous thrombosis and embolism; E03.9 Hypothyroidism, unspecified; E78.5 Hyperlipidemia, unspecified
CPT/HCPCS: 49324; 36415; 36416; 82962; C1750; J0690; J1644; J3010; J3490; J7030

== ENCOUNTER → 2021-06-26 08:08 | Day surgery (SDC) | payer MEDICARE, MEDICAID, SELFPAY ==
[2021-06-26 08:30] VITALS: BP 149/93; PULSE 64; RESP 18; TEMP 36.5; O2SAT 97; BMI 40.0
[2021-06-26 08:57] LABS: Basophils # 0.1 10^3/uL (0.0-0.1); Basophils % 1.1 %; Eosinophils # 0.3 10^3/uL (0.0-0.8); Eosinophils % 3.5 %; Hemoglobin 9.9 g/dL (11.7-16.6); Lymphocytes # 2.1 10^3/uL (0.8-4.8); Lymphocytes % 23.1 %; Mean Corpuscular Hemoglobin 29.6 pg (28.0-34.0); Mean Corpuscular Volume 89.8 fl (80-94); Mean Platelet Volume 8.9 fL (7.4-10.4); Monocytes # 0.8 10^3/uL (0.2-0.9); Monocytes % 9.1 %; Neutrophils # 5.64 10^3/uL (1.8-7.7); Neutrophils % 62.5 %; Nucleated Red Blood Cells % 0 %; Platelet Count 465 10^3/cmm (130-400); Red Blood Count 3.34 10^6/uL (4.1-5.3); Red Cell Distribution Width 15.2 % (12.1-15.1)
[2021-06-26 09:32] LABS: Creatinine Urine, Random 51 mg/dL (39-259)
[2021-06-26 09:46] LABS: Microalbum Creatinine Ratio Ur 1471 mg/dL (0-20); Microalbumin Random Urine 75 ug/dL (0-20)
[2021-06-26 10:05] LABS: Calcium 9.9 mg/dL (8.5-10.5)
[2021-06-26 10:11] LABS: Albumin Level 3.6 g/dL (3.5-5.2); Anion Gap 17.6 (5-19); Blood Urea Nitrogen 68 mg/dL (6-20); Calcium 9.1 mg/dL (8.5-10.5); Carbon Dioxide 30 mmol/L (22-29); Chloride 90 mmol/L (98-107); Glomerular Filtration Rate 22.9 mL/min (90-130); Glucose 247 mg/dL (65-115); Phosphorus 4.4 mg/dL (2.5-4.5); Potassium 3.6 mmol/L (3.5-5.1); Sodium 134 mmol/L (136-145)
[2021-06-26 10:12] LABS: Parathyroid Hormone 81.9 pg/mL (15-65)
== END ==
PROVIDERS: Registered Nurse; PCP Internal Medicine; Visit Provider Surgery
DX: Z95.828 Presence of other vascular implants and grafts (principal)
CPT/HCPCS: 36591; 80069; 82044; 82310; 83970; 85025

== ENCOUNTER 2021-07-10 10:18 | Outpatient (CLI) | payer MEDICARE, MEDICAID, SELFPAY | END 2021-07-10 10:19 | disposition home or self-care (01) | PROVIDERS: PCP Internal Medicine; Visit Provider Surgery | DX: D64.9 Anemia, unspecified (principal) | CPT/HCPCS: 82274 ==

== ENCOUNTER → 2021-07-17 12:31 | Day surgery (SDC) | payer MEDICARE, MEDICAID, SELFPAY ==
[2021-07-17 12:43] VITALS: BP 155/67; PULSE 69; RESP 18; TEMP 36.5; O2SAT 94
[2021-07-17 13:22] LABS: Anion Gap 17.9 (5-19); Blood Urea Nitrogen 76 mg/dL (6-20); Calcium 10.1 mg/dL (8.5-10.5); Carbon Dioxide 30 mmol/L (22-29); Chloride 92 mmol/L (98-107); Glomerular Filtration Rate 17.3 mL/min (90-130); Glucose 141 mg/dL (65-115); Osmolality Calculated 307 mOsm/kg (285-295); Potassium 3.9 mmol/L (3.5-5.1); Sodium 136 mmol/L (136-145)
[2021-07-17 13:39] LABS: Estmated Average Glucose 183
== END ==
PROVIDERS: PCP Internal Medicine; Visit Provider Surgery
DX: E11.9 Type 2 diabetes mellitus without complications (principal)
CPT/HCPCS: 36591; 80048; 83036

== ENCOUNTER 2021-07-27 15:17 | Emergency (ER) | payer MEDICARE, MEDICAID, SELFPAY ==
[2021-07-27 15:27] VITALS: BP 146/79; PULSE 78; RESP 18; TEMP 36.6; O2SAT 93; BMI 41.3
[2021-07-27 16:38] VITALS: BP 115/66; PULSE 77; RESP 16; O2SAT 91
--- NOTE | 2021-07-27 17:05 | ED_ITS ---
Documented by User: Timo Mckoy DO 08/01/21 12:47 HPI - Weakness General: Chief complaint: Weakness Stated complaint: Tremors, Falls, confusion Time Seen by Provider: 07/27/21 16:43 Source: patient Mode of arrival: ambulatory Limitations: no limitations History of Present Illness: 81-year-old male presents to the emergency room with complaints of weakness for the last 3 days. Also complaining shortness of breath and chest pain. He has had nausea no vomiting or diarrhea is noted his weight has been fluctuating quite a bit net over the last 3 days he is up 1 reny nd he states he has lost and gained 6 and 7 pounds respectively. He is also had more falls and has been feeling very weak lately. He has a history of type 2 diabetes mellitus chronic kidney disease obstructive sleep apnea. He denies any chest pain at this time no vomiting or diarrhea. No focal weakness or neurologic deficits complains biggest of just weakness in his legs. MD Complaint: generalized weakness Onset (ago): day(s) (3) Duration: constant Location: LLE and RLE Migration: none Severity: moderate Relieving factors: none Exacerbating factors: none Associated symptoms: Reports decreased appetite and nausea; Denies chest pain, chills, confusion, melena, diaphoresis, dysuria, easy bruising, fever(s), headache(s), myalgias, rash, short of breath, syncope or vomiting Review of Systems 2 Const: Denies: fever(s), chills or diaphoresis ENMT: Denies: throat pain, ear or mastoid pain, nasal discharge or nasal congestion Card: Denies: chest pain or syncope Resp: Denies: dyspnea, productive cough or non-productive cough GI: Reports: nausea; Denies: vomiting or melena : Denies: dysuria Skin/Breast: Denies: rash or pruritus Neuro: Denies: headache(s) or confusion Dewey/Lymph: Denies: easy bruising PFSH ED PFSH: Medical History Acute on chronic congestive heart failure Anemia Atherosclerotic heart disease of [place] coronary artery with other forms of angina pectoris hx of CAD with prior stenting of proximal LAD, LCx, RCA Chronic anticoagulation Eliquis Chronic kidney disease -baseline Cr appears to be around 1.5 Chronic systolic heart failure EF=47%, diffuse LV hypokinesis, mildly increased LA size Depression Diabetes A1c-7.6 (08/2019) Foot drop, left GERD (gastroesophageal reflux disease) H/O acute myocardial infarction H/O deep venous thrombosis developed compartment syndrome Hyperlipidemia Hypertension Hypothyroidism Ischemic cardiomyopathy Major depressive disorder, recurrent severe without psychotic features Osteoarthritis of spine Surgical History H/O colonoscopy (11/14/20) 08/2015 H/O esophagogastroduodenoscopy (11/14/20) 08/2015 H/O removal of testicle left H/O skin graft H/O vasectomy History of appendectomy 1995 History of coronary artery stent placement 5x History of excision of mass 06/08/2019: Subcutaneous mass on back History of inguinal hernia repair, bilateral 1999 History of removal of Port-a-Cath Hx of cholecystectomy Peritoneal dialysis catheter in situ (06/15/21) Port-A-Cath in place Family History Grandfather Cancer skin cancer Parkinson disease Brother Hypertension Father Heart disease Mother Hypertension Stroke Aneurysm Grandmother Aneurysm Other Crohn disease Denies family history of Anesthesia complication Bleeding disorder Social History Smoking and tobacco status: never smoked Second hand smoke exposure: No Alcohol intake: former Former alcohol use details: Only holidays Lives independently: Yes Household members: significant other Marital status: Single Current occupational status: disabled History of recent travel: No Physical Exam Const: COMMON NORMALS: no acute distress GENERAL APPEARANCE: cooperative and comfortable ORIENTATION/CONSCIOUSNESS: Yes awake, Yes oriented to person, Yes oriented to place and Yes oriented to time HENMT: COMMON NORMALS: normocephalic, atraumatic and hearing grossly normal bilaterally HEAD & SCALP: normocephalic and atraumatic Neck/C-Spine: COMMON NORMALS: no JVD Resp: COMMON NORMALS: normal respiratory effort, No retractions, No use of accessory muscles and clear to auscultation bilaterally AUSCULTATION: clear to auscultation bilaterally Cardio: COMMON NORMALS: no JVD, regular rate, regular rhythm and No murmurs present (Cardio) RATE: regular rate RHYTHM: regular rhythm GI: COMMON NORMALS: Soft to palpation and No hepatosplenomegaly present AUSCULTATION: Yes normoactive bowel sounds PALPATION: Yes Soft to palpation, No Tenderness to palpation present (GI), No Guarding due to palpation present (GI) and Yes No hepatosplenomegaly present Extremity: COMMON NORMALS: normal to inspection, capillary refill normal, no clubbing, cyanosis or edema, no calf tenderness and no pedal edema Neuro: SENSORIUM/ORIENTATION: Yes oriented to person, Yes oriented to place and Yes oriented to time Skin: COMMON NORMALS: no rashes or lesions noted GENERAL SKIN EXAM: no rashes or lesions noted Course Vital Signs: Vital signs: Vital Signs Temperature 97.8 F 07/27/21 15:27 Pulse Rate 74 07/27/21 18:46 Respiratory Rate 16 07/27/21 16:38 Blood Pressure 156/90 07/27/21 18:46 Pulse Oximetry 95 07/27/21 18:46 MDM - Weakness Medical Decision Making Patient is feeling improved. Labs and imaging reviewed he has some hyponatremia and renal failure. Both of these are chronic issues not really have any symptom s of hyponatremia at the moment he says he is feeling better fluids and he wishes to go home we will go ahead and discharge him home follow-up with his primary care doctor or his personal banking representative within the week return if has further problems. Medical Records I reviewed the patient's medical records. Lab Data I reviewed the patient's lab results. : 07/27/21 17:13 07/27/21 17:13 Radiology Impressions Chest X-Ray 07/27/21 17:05 IMPRESSION: Minor curvilinear atelectasis or scarring at the left lung base. Otherwise, no acute findings. Laboratory Results WBC 8.8 10^3/uL (4.0-10.0) 07/27/21 17:13 RBC 3.91 10^6/uL (4.1-5.3) L 07/27/21 17:13 Hgb 11.5 g/dL (11.7-16.6) L 07/27/21 17:13 Hct 34.2 % (42.0-52.0) L 07/27/21 17:13 MCV 87.5 fl (80-94) 07/27/21 17:13 MCH 29.4 pg (28.0-34.0) 07/27/21 17:13 MCHC 33.6 g/dL (30.0-36.0) 07/27/21 17:13 RDW 14.6 % (12.1-15.1) 07/27/21 17:13 Plt Count 338 10^3/cmm (130-400) 07/27/21 17:13 MPV 9.6 fL (7.4-10.4) 07/27/21 17:13 Neut % (Auto) 68.0 % 07/27/21 17:13 Lymph % (Auto) 18.1 % 07/27/21 17:13 Geary % (Auto) 9.6 % 07/27/21 17:13 Eos % (Auto) 2.8 % 07/27/21 17:13 Baso % (Auto) 1.0 % 07/27/21 17:13 Neut # (Auto) 5.99 10^3/uL (1.8-7.7) 07/27/21 17:13 Lymph # (Auto) 1.6 10^3/uL (0.8-4.8) 07/27/21 17:13 Geary # (Auto) 0.9 10^3/uL (0.2-0.9) 07/27/21 17:13 Eos # (Auto) 0.3 10^3/uL (0.0-0.8) 07/27/21 17:13 Baso # (Auto) 0.1 10^3/uL (0.0-0.1) 07/27/21 17:13 Nucleated RBC % (auto) 0 % 07/27/21 17:13 Nucleated RBCs # 0.0 /100WBC 07/27/21 17:13 Sodium 127 mmol/L (136-145) L 07/27/21 17:13 Potassium 3.2 mmol/L (3.5-5.1) L 07/27/21 17:13 Chloride 86 mmol/L (98-107) L 07/27/21 17:13 Carbon Dioxide 26 mmol/L (22-29) 07/27/21 17:13 Anion Gap 18.2 (5-19) 07/27/21 17:13 BUN 77 mg/dL (6-20) H 07/27/21 17:13 Creatinine 3.7 mg/dL (0.7-1.2) H 07/27/21 17:13 GFR Calculation 17.3 mL/min (90-130) L 07/27/21 17:13 Glucose 216 mg/dL (65-115) H 07/27/21 17:13 Calculated Osmolality 294 mOsm/kg (285-295) 07/27/21 17:13 Calcium 8.4 mg/dL (8.5-10.5) L 07/27/21 17:13 Total Bilirubin 0.3 mg/dL (0.15-1.2) 07/27/21 17:13 AST 13 U/L (0-40) 07/27/21 17:13 ALT 12 U/L (0-41) 07/27/21 17:13 Alkaline Phosphatase 115 IU/L (40-130) 07/27/21 17:13 NT-Pro-B Natriuret Pep 2841 pg/mL (0-125) H 07/27/21 17:13 Total Protein 6.9 g/dL (6.6-8.7) 07/27/21 17:13 Albumin 3.5 g/dL (3.5-5.2) 07/27/21 17:13 Globulin 3.4 g/dL (1.3-4.6) 07/27/21 17:13 Discharge Plan Discharge Patient Disposition: Home Clinical Impression: Weakness, Hypertension, Diabetes, CRF (chronic renal failure), Chronic systolic heart failure Condition: Stable Prescriptions: No Action trazodone 100 mg tablet 300 mg PO BEDTIME PRN (Reason: insomnia) Qty: 90 2RF citalopram 40 mg tablet 40 mg PO DAILY Qty: 30 2RF bupropion HCl [Wellbutrin XL] 150 mg tablet extended release 24 hr 150 mg PO QAM Qty: 30 2RF mupirocin 2 % ointment 1 applic topical BID 14 Days Qty: 22 2RF multivitamin [Daily Multi-Vitamin] Tablet 1 tab PO QPM 0RF Trulicity 0.75 mg/0.5 mL pen injector 0.75 mg SUBCUT Q7D 0RF Rx Instructions: ON SAT aspirin 81 mg tablet,delayed release (DR/EC) 81 mg PO DAILY@0600 0RF promethazine 25 mg tablet 25 mg PO Q6H PRN (Reason: Pain) 0RF bumetanide 2 mg tablet 4 mg PO TID 0RF nitroglycerin [Nitrostat] 0.4 mg tablet, sublingual 0.4 mg SUBLINGUAL Q5M PRN (Reason: Chest Pain) Qty: 25 2RF isosorbide mononitrate 30 mg tablet extended release 24 hr 30 mg PO BID@0600,1800 Qty: 180 3RF hydrocodone-acetaminophen 5-325 mg tablet 1 tab PO Q6H PRN (Reason: pain) 7 Days Qty: 20 0RF insulin lispro [Humalog U-100 Insulin] 100 unit/mL solution See Rx Instructions .ROUTE .COMPLEX 0RF Rx Instructions: SLIDING SCALE BID @06,18 Eliquis 5 mg tablet 5 mg PO Q12H Qty: 60 0RF Hold Instructions: Resume on 06/16/21. amlodipine 5 mg Tablet 5 mg PO DAILY Qty: 0 0RF metoprolol tartrate 50 mg tablet 25 mg PO BID@0600,1800 Qty: 0 0RF docusate sodium [Colace] 100 mg capsule 100 mg PO BID Qty: 30 0RF cyclobenzaprine 10 mg tablet 10 mg PO TID PRN (Reason: MUSCLE SPASMS) 0RF atorvastatin 40 mg tablet 40 mg PO QAM 0RF ranolazine [Ranexa] 500 mg tablet extended release 12 hr 500 mg PO BID 0RF levothyroxine 88 mcg tablet 88 mcg PO QAM 0RF Tresiba FlexTouch U-200 200 unit/mL (3 mL) insulin pen 30 unit SUBCUT BEDTIME 0RF gabapentin 600 mg tablet 600 mg PO DAILY 0RF lidocaine 5 % adhesive patch,medicated 1 patch transdermal PRN PRN (Reason: Pain) 0RF metolazone 5 mg tablet 5 mg PO Q48H 0RF potassium chloride 20 mEq tablet,ER particles/crystals 20 meq PO DIRECTED 0RF Rx Instructions: 40 mEq PO Take 2 tabs in morning and afternoon and 1 tab in evening; Discharge Orders: Discharge ED (Routine); Ordered 07/27/21 Ordered By: Timo Mckoy Referrals: Kp Montanez DO [Primary Care Provider] - Discharge Diet: Usual diet Discharge Activity: Increase activity as tolerated Patient Instructions: Opioid Safety Activity Restrictions/Additional Instructions: Follow-up with your primary care doctor within the next 3 to 5 days Coding Level of Care Code ED Welder Setter Electron Beam Machine for Chg Fwd Exam Comprehensive NIH stroke score NIHSS Level Of Consciousness - 1a: 0 Level Of Consciousness Questions - 1b: Both Correct Level Of Consciousness Commands - 1c: Both Correct Best Gaze - 2: Normal Visual Scanlon - 3: No Visual Loss Facial Palsy - 4: Normal Motor Arm Right - 5: No Drift Motor Arm Left - 5: No Drift Motor Leg Right - 6: No Drift Motor Leg Left - 6: No Drift Limb Ataxia - 7: Absent Sensory - 8: Normal Best Language - 9: No Aphasia Dysarthia - 10: Normal Extinction And Inattention - 11: 0 Score Total Score: 0 Documented by User: Moses Gauthier MD 07/28/21 01:48 HPI - Weakness General: Chief complaint: Weakness Stated complaint: Tremors, Falls, confusion Time Seen by Provider: 07/27/21 16:43 PFSH ED PFSH: Medical History Acute on chronic congestive heart failure Anemia Atherosclerotic heart disease of [place] coronary artery with other forms of praveena na pectoris hx of CAD with prior stenting of proximal LAD, LCx, RCA Chronic anticoagulation Eliquis Chronic kidney disease -baseline Cr appears to be around 1.5 Chronic systolic heart failure EF=47%, diffuse LV hypokinesis, mildly increased LA size Depression Diabetes A1c-7.6 (08/2019) Foot drop, left GERD (gastroesophageal reflux disease) H/O acute myocardial infarction H/O deep venous thrombosis developed compartment syndrome Hyperlipidemia Hypertension Hypothyroidism Ischemic cardiomyopathy Major depressive disorder, recurrent severe without psychotic features Osteoarthritis of spine Surgical History H/O colonoscopy (11/14/20) 08/2015 H/O esophagogastroduodenoscopy (11/14/20) 08/2015 H/O removal of testicle left H/O skin graft H/O vasectomy History of appendectomy 1995 History of coronary artery stent placement 5x History of excision of mass 06/08/2019: Subcutaneous mass on back History of inguinal hernia repair, bilateral 1999 History of removal of Port-a-Cath Hx of cholecystectomy Peritoneal dialysis catheter in situ (06/15/21) Port-A-Cath in place Family History Grandfather Cancer skin cancer Parkinson disease Brother Hypertension Father Heart disease Mother Hypertension Stroke Aneurysm Grandmother Aneurysm Other Crohn disease Denies family history of Anesthesia complication Bleeding disorder Social History Smoking and tobacco status: never smoked Second hand smoke exposure: No Alcohol intake: former Former alcohol use details: Only holidays Lives independently: Yes Household members: significant other Marital status: Single Current occupational status: disabled History of recent travel: No Course Vital Signs: Vital signs: Vital Signs Temperature 97.8 F 07/27/21 15:27 Pulse Rate 74 07/27/21 18:46 Respiratory Rate 16 07/27/21 16:38 Blood Pressure 156/90 07/27/21 18:46 Pulse Oximetry 95 07/27/21 18:46 MDM - Weakness Lab Data : 07/27/21 17:13 07/27/21 17:13 Radiology Impressions Chest X-Ray 07/27/21 17:05 IMPRESSION: Minor curvilinear atelectasis or scarring at the left lung base. Otherwise, no acute findings. Laboratory Results WBC 8.8 10^3/uL (4.0-10.0) 07/27/21 17:13 RBC 3.91 10^6/uL (4.1-5.3) L 07/27/21 17:13 Hgb 11.5 g/dL (11.7-16.6) L 07/27/21 17:13 Hct 34.2 % (42.0-52.0) L 07/27/21 17:13 MCV 87.5 fl (80-94) 07/27/21 17:13 MCH 29.4 pg (28.0-34.0) 07/27/21 17:13 MCHC 33.6 g/dL (30.0-36.0) 07/27/21 17:13 RDW 14.6 % (12.1-15.1) 07/27/21 17:13 Plt Count 338 10^3/cmm (130-400) 07/27/21 17:13 MPV 9.6 fL (7.4-10.4) 07/27/21 17:13 Neut % (Auto) 68.0 % 07/27/21 17:13 Lymph % (Auto) 18.1 % 07/27/21 17:13 Geary % (Auto) 9.6 % 07/27/21 17:13 Eos % (Auto) 2.8 % 07/27/21 17:13 Baso % (Auto) 1.0 % 07/27/21 17:13 Neut # (Auto) 5.99 10^3/uL (1.8-7.7) 07/27/21 17:13 Lymph # (Auto) 1.6 10^3/uL (0.8-4.8) 07/27/21 17:13 Geary # (Auto) 0.9 10^3/uL (0.2-0.9) 07/27/21 17:13 Eos # (Auto) 0.3 10^3/uL (0.0-0.8) 07/27/21 17:13 Baso # (Auto) 0.1 10^3/uL (0.0-0.1) 07/27/21 17:13 Nucleated RBC % (auto) 0 % 07/27/21 17:13 Nucleated RBCs # 0.0 /100WBC 07/27/21 17:13 Sodium 127 mmol/L (136-145) L 07/27/21 17:13 Potassium 3.2 mmol/L (3.5-5.1) L 07/27/21 17:13 Chloride 86 mmol/L (98-107) L 07/27/21 17:13 Carbon Dioxide 26 mmol/L (22-29) 07/27/21 17:13 Anion Gap 18.2 (5-19) 07/27/21 17:13 BUN 77 mg/dL (6-20) H 07/27/21 17:13 Creatinine 3.7 mg/dL (0.7-1.2) H 07/27/21 17:13 GFR Calculation 17.3 mL/min (90-130) L 07/27/21 17:13 Glucose 216 mg/dL (65-115) H 07/27/21 17:13 Calculated Osmolality 294 mOsm/kg (285-295) 07/27/21 17:13 Calcium 8.4 mg/dL (8.5-10.5) L 07/27/21 17:13 Total Bilirubin 0.3 mg/dL (0.15-1.2) 07/27/21 17:13 AST 13 U/L (0-40) 07/27/21 17:13 ALT 12 U/L (0-41) 07/27/21 17:13 Alkaline Phosphatase 115 IU/L (40-130) 07/27/21 17:13 NT-Pro-B Natriuret Pep 2841 pg/mL (0-125) H 07/27/21 17:13 Total Protein 6.9 g/dL (6.6-8.7) 07/27/21 17:13 Albumin 3.5 g/dL (3.5-5.2) 07/27/21 17:13 Globulin 3.4 g/dL (1.3-4.6) 07/27/21 17:13 Discharge Plan Discharge Patient Disposition: Home Clinical Impression: Weakness, Hypertension, Diabetes, CRF (chronic renal failure), Chronic systolic heart failure Condition: Stable Prescriptions: No Action trazodone 100 mg tablet 300 mg PO BEDTIME PRN (Reason: insomnia) Qty: 90 2RF citalopram 40 mg tablet 40 mg PO DAILY Qty: 30 2RF bupropion HCl [Wellbutrin XL] 150 mg tablet extended release 24 hr 150 mg PO QAM Qty: 30 2RF mupirocin 2 % ointment 1 applic topical BID 14 Days Qty: 22 2RF multivitamin [Daily Multi-Vitamin] Tablet 1 tab PO QPM 0RF Trulicity 0.75 mg/0.5 mL pen injector 0.75 mg SUBCUT Q7D 0RF Rx Instructions: ON SAT aspirin 81 mg tablet,delayed release (DR/EC) 81 mg PO DAILY@0600 0RF promethazine 25 mg tablet 25 mg PO Q6H PRN (Reason: Pain) 0RF bumetanide 2 mg tablet 4 mg PO TID 0RF nitroglycerin [Nitrostat] 0.4 mg tablet, sublingual 0.4 mg SUBLINGUAL Q5M PRN (Reason: Chest Pain) Qty: 25 2RF isosorbide mononitrate 30 mg tablet extended release 24 hr 30 mg PO BID@0600,1800 Qty: 180 3RF hydrocodone-acetaminophen 5-325 mg tablet 1 tab PO Q6H PRN (Reason: pain) 7 Days Qty: 20 0RF insulin lispro [Humalog U-100 Insulin] 100 unit/mL solution See Rx Instructions .ROUTE .COMPLEX 0RF Rx Instructions: SLIDING SCALE BID @06,18 Eliquis 5 mg tablet 5 mg PO Q12H Qty: 60 0RF Hold Instructions: Resume on 06/16/21. amlodipine 5 mg Tablet 5 mg PO DAILY Qty: 0 0RF metoprolol tartrate 50 mg tablet 25 mg PO BID@0600,1800 Qty: 0 0RF docusate sodium [Colace] 100 mg capsule 100 mg PO BID Qty: 30 0RF cyclobenzaprine 10 mg tablet 10 mg PO TID PRN (Reason: MUSCLE SPASMS) 0RF atorvastatin 40 mg tablet 40 mg PO QAM 0RF ranolazine [Ranexa] 500 mg tablet extended release 12 hr 500 mg PO BID 0RF levothyroxine 88 mcg tablet 88 mcg PO QAM 0RF Tresiba FlexTouch U-200 200 unit/mL (3 mL) insulin pen 30 unit SUBCUT BEDTIME 0RF gabapentin 600 mg tablet 600 mg PO DAILY 0RF lidocaine 5 % adhesive patch,medicated 1 patch transdermal PRN PRN (Reason: Pain) 0RF metolazone 5 mg tablet 5 mg PO Q48H 0RF potassium chloride 20 mEq tablet,ER particles/crystals 20 meq PO DIRECTED 0RF Rx Instructions: 40 mEq PO Take 2 tabs in morning and afternoon and 1 tab in evening; Discharge Orders: Discharge ED (Routine); Ordered 07/27/21 Ordered By: Timo Mckoy Referrals: Kp Montanez DO [Primary Care Provider] - Discharge Diet: Usual diet Discharge Activity: Increase activity as tolerated Patient Instructions: Opioid Safety Activity Restrictions/Additional Instructions: Follow-up with your primary care doctor within the next 3 to 5 days Coding Level of Care Code ED Welder Setter Electron Beam Machine for Radhag Fwd Exam Comprehensive NIH stroke score Score Total Score: 0
--- NOTE | 2021-07-27 17:05 | XRR_ITS ---
PROCEDURE INFORMATION: Exam: XR Chest Exam date and time: 07/27/2021 5:05 PM Age: 51 years old Clinical indication: Cough and dyspnea; Prior surgery; Surgery date: 6+ months; Additional info: Dyspnea/cough TECHNIQUE: Imaging protocol: XR of the chest. Views: 1 view. COMPARISON: CR XR chest 1V portable [id number] 05/12/2021 3:17 PM FINDINGS: Tubes, catheters and devices: Left chest port terminates in the proximal right atrium. Lungs: Hypoinflated lungs. Minor curvilinear atelectasis or scarring at the left lung base. No consolidation. Pleural spaces: No pleural effusion. No pneumothorax. Heart/Mediastinum: No cardiomegaly. Bones/joints: Sternotomy wires noted. Visualized osseous structures are intact. XR/XR chest 1V portable [id number] IMPRESSION: Minor curvilinear atelectasis or scarring at the left lung base. Otherwise, no acute findings.
[2021-07-27 17:13] VITALS: BP 115/66; PULSE 74; O2SAT 93
[2021-07-27 17:29] LABS: Basophils # 0.1 10^3/uL (0.0-0.1); Eosinophils # 0.3 10^3/uL (0.0-0.8); Eosinophils % 2.8 %; Hematocrit 34.2 % (42.0-52.0); Hemoglobin 11.5 g/dL (11.7-16.6); Lymphocytes # 1.6 10^3/uL (0.8-4.8); Lymphocytes % 18.1 %; Mean Corpuscular HGB Conc 33.6 g/dL (30.0-36.0); Mean Corpuscular Hemoglobin 29.4 pg (28.0-34.0); Mean Corpuscular Volume 87.5 fl (80-94); Mean Platelet Volume 9.6 fL (7.4-10.4); Monocytes # 0.9 10^3/uL (0.2-0.9); Monocytes % 9.6 %; Neutrophils # 5.99 10^3/uL (1.8-7.7); Nucleated Red Blood Cells % 0 %; Platelet Count 338 10^3/cmm (130-400); Red Blood Count 3.91 10^6/uL (4.1-5.3); Red Cell Distribution Width 14.6 % (12.1-15.1); White Blood Count 8.8 10^3/uL (4.0-10.0)
[2021-07-27 18:15] LABS: Alanine Aminotransferase 12 U/L (0-41); Albumin Level 3.5 g/dL (3.5-5.2); Alkaline Phosphatase 115 IU/L (40-130); Anion Gap 18.2 (5-19); Aspartate Amino Transferase 13 U/L (0-40); Blood Urea Nitrogen 77 mg/dL (6-20); Calcium 8.4 mg/dL (8.5-10.5); Carbon Dioxide 26 mmol/L (22-29); Chloride 86 mmol/L (98-107); Globulin 3.4 g/dL (1.3-4.6); Glomerular Filtration Rate 17.3 mL/min (90-130); Glucose 216 mg/dL (65-115); NT Pro B Type Natriuretic Pept 2841 pg/mL (0-125); Osmolality Calculated 294 mOsm/kg (285-295); Potassium 3.2 mmol/L (3.5-5.1); Sodium 127 mmol/L (136-145); Total Bilirubin 0.3 mg/dL (0.15-1.2); Total Protein 6.9 g/dL (6.6-8.7)
[2021-07-27 18:46] VITALS: BP 156/90; PULSE 74; O2SAT 95
== END 2021-07-27 18:48 | disposition home or self-care (01) ==
PROVIDERS: Emergency Provider Family Medicine; PCP Internal Medicine
DX: R53.1 Weakness (principal); I13.0 Hypertensive heart and chronic kidney disease with heart failure and stage 1 through stage 4 chronic kidney disease, or unspecified chronic kidney disease; E11.22 Type 2 diabetes mellitus with diabetic chronic kidney disease; N18.9 Chronic kidney disease, unspecified; I50.22 Chronic systolic (congestive) heart failure; Z79.01 Long term (current) use of anticoagulants; Z79.82 Long term (current) use of aspirin; Z79.4 Long term (current) use of insulin; I25.10 Atherosclerotic heart disease of native coronary artery without angina pectoris; I25.2 Old myocardial infarction; E78.5 Hyperlipidemia, unspecified
CPT/HCPCS: 71045; 80053; 81000; 83880; 85025; 99283

== ENCOUNTER 2021-08-15 06:00 | Outpatient (RCR) | payer MEDICARE, MEDICAID, SELFPAY | END 2021-08-17 23:59 | disposition home or self-care (01) | LOC: SPT 06:00 | PROVIDERS: PCP Internal Medicine; Referring Provider Internal Medicine; Visit Provider Internal Medicine | DX: R26.9 Unspecified abnormalities of gait and mobility (principal) | CPT/HCPCS: 97162 ==

== ENCOUNTER → 2021-08-15 09:19 | Day surgery (SDC) | payer MEDICARE, MEDICAID, SELFPAY ==
[2021-08-15 09:44] VITALS: BP 141/80; PULSE 74; RESP 20; TEMP 36.3; O2SAT 95
[2021-08-15 09:47] LABS: Basophils # 0.1 10^3/uL (0.0-0.1); Basophils % 1.2 %; Eosinophils # 0.2 10^3/uL (0.0-0.8); Eosinophils % 2.6 %; Hematocrit 35.4 % (42.0-52.0); Hemoglobin 12.1 g/dL (11.7-16.6); Lymphocytes # 1.7 10^3/uL (0.8-4.8); Lymphocytes % 20.5 %; Mean Corpuscular HGB Conc 34.2 g/dL (30.0-36.0); Mean Corpuscular Hemoglobin 29.9 pg (28.0-34.0); Mean Corpuscular Volume 87.4 fl (80-94); Mean Platelet Volume 9.1 fL (7.4-10.4); Monocytes # 0.7 10^3/uL (0.2-0.9); Monocytes % 8.5 %; Neutrophils # 5.58 10^3/uL (1.8-7.7); Neutrophils % 66.7 %; Nucleated Red Blood Cells % 0 %; Platelet Count 336 10^3/cmm (130-400); Red Blood Count 4.05 10^6/uL (4.1-5.3); Red Cell Distribution Width 14.7 % (12.1-15.1); White Blood Count 8.4 10^3/uL (4.0-10.0)
[2021-08-15 10:05] LABS: Ferritin 47 ng/mL (30-400); Iron 45 ug/dL (59-158); Percent Saturation 18.1 % (20-50); Total Iron Binding Capacity 248 mcg/dl; Transferrin 222 mg/dL (200-360); Unsaturated Iron Binding 203 ug/dL (112-347)
[2021-08-15 13:13] LABS: Albumin Level 3.9 g/dL (3.5-5.2); Anion Gap 19.5 (5-19); Blood Urea Nitrogen 73 mg/dL (6-20); Calcium 9.4 mg/dL (8.5-10.5); Carbon Dioxide 27 mmol/L (22-29); Chloride 95 mmol/L (98-107); Glucose 154 mg/dL (65-115); Phosphorus 4.3 mg/dL (2.5-4.5); Potassium 3.5 mmol/L (3.5-5.1); Sodium 138 mmol/L (136-145)
[2021-08-15 13:29] LABS: 25 Hydroxy Vitamin D 28 ng/mL (30-100)
== END ==
PROVIDERS: Internal Medicine Nephrology; PCP Internal Medicine; Visit Provider Surgery
DX: N18.4 Chronic kidney disease, stage 4 (severe) (principal); D63.1 Anemia in chronic kidney disease
CPT/HCPCS: 36591; 80069; 82306; 82728; 83540; 83550; 84466; 85025

== ENCOUNTER → 2021-08-16 09:10 | Day surgery (SDC) | payer MEDICARE, MEDICAID, SELFPAY ==
[2021-08-16 10:04] LABS: Calcium 9.2 mg/dL (8.5-10.5)
[2021-08-16 10:12] LABS: Parathyroid Hormone 139.7 pg/mL (15-65)
[2021-08-16 10:38] LABS: Creatinine Urine, Random 33 mg/dL (39-259); Microalbumin Random Urine 36 ug/dL (0-20)
[2021-08-16 10:39] LABS: Microalbum Creatinine Ratio Ur 1091 mg/dL (0-20)
== END ==
PROVIDERS: PCP Internal Medicine; Visit Provider Internal Medicine Nephrology
DX: N18.4 Chronic kidney disease, stage 4 (severe) (principal)
CPT/HCPCS: 36591; 82044; 82310; 83970

== ENCOUNTER 2021-08-18 06:00 | Outpatient (RCR) | payer MEDICARE, MEDICAID, SELFPAY | END 2021-09-16 23:59 | disposition home or self-care (01) | LOC: SPT 06:00 | PROVIDERS: PCP Internal Medicine; Referring Provider Internal Medicine; Visit Provider Internal Medicine | DX: R26.9 Unspecified abnormalities of gait and mobility (principal) | CPT/HCPCS: 97110 ==

== ENCOUNTER → 2021-09-12 09:03 | Day surgery (SDC) | payer MEDICARE, MEDICAID, SELFPAY ==
[2021-09-12 09:39] LABS: Basophils # 0.1 10^3/uL (0.0-0.1); Basophils % 1.2 %; Eosinophils # 0.3 10^3/uL (0.0-0.8); Eosinophils % 3.6 %; Hematocrit 34.9 % (42.0-52.0); Lymphocytes # 1.8 10^3/uL (0.8-4.8); Lymphocytes % 22.9 %; Mean Corpuscular HGB Conc 34.4 g/dL (30.0-36.0); Mean Corpuscular Hemoglobin 30.1 pg (28.0-34.0); Mean Corpuscular Volume 87.5 fl (80-94); Mean Platelet Volume 9.3 fL (7.4-10.4); Monocytes # 0.6 10^3/uL (0.2-0.9); Monocytes % 7.9 %; Neutrophils # 4.99 10^3/uL (1.8-7.7); Nucleated Red Blood Cells % 0 %; Platelet Count 282 10^3/cmm (130-400); Red Blood Count 3.99 10^6/uL (4.1-5.3); Red Cell Distribution Width 15.1 % (12.1-15.1); White Blood Count 7.8 10^3/uL (4.0-10.0)
[2021-09-12 09:51] VITALS: BP 146/92; PULSE 79; RESP 18; TEMP 36.3; O2SAT 98
[2021-09-12 09:59] LABS: Blood Urea Nitrogen 65 mg/dL (6-20); Calcium 8.1 mg/dL (8.5-10.5); Carbon Dioxide 29 mmol/L (22-29); Chloride 98 mmol/L (98-107); Glomerular Filtration Rate 21.2 mL/min (90-130); Glucose 123 mg/dL (65-115); Osmolality Calculated 310 mOsm/kg (285-295); Sodium 140 mmol/L (136-145)
== END ==
PROVIDERS: PCP Internal Medicine; Visit Provider Internal Medicine
DX: N18.9 Chronic kidney disease, unspecified (principal)
CPT/HCPCS: 36591; 80048; 85025

== ENCOUNTER → 2021-09-14 14:35 | Outpatient (BNVA) | payer MEDICARE, MEDICAID, SELFPAY | PROVIDERS: PCP Internal Medicine; Visit Provider Psychiatry & Neurology Psychiatry | DX: F33.2 Major depressive disorder, recurrent severe without psychotic features (principal); F10.21 Alcohol dependence, in remission | CPT/HCPCS: 99214 ==

== ENCOUNTER 2021-09-17 06:00 | Outpatient (RCR) | payer MEDICARE, MEDICAID, SELFPAY | END 2021-09-20 23:59 | disposition home or self-care (01) | LOC: SPT 06:00 | PROVIDERS: PCP Internal Medicine; Referring Provider Internal Medicine; Visit Provider Internal Medicine | DX: R26.9 Unspecified abnormalities of gait and mobility (principal) | CPT/HCPCS: 97110 ==

== ENCOUNTER 2021-09-30 16:19 | Emergency (ER) | payer MEDICARE, MEDICAID, SELFPAY ==
[2021-09-30] VITALS (12 sets, daily range): BP systolic 127–173; BP diastolic 72–110; PULSE 63–79; RESP 15–24; TEMP 36.3; O2SAT 92–97; BMI 40.6
--- NOTE | 2021-09-30 16:35 | ECG_ITS ---
[facility] Test Date: 2021-09-30 Pat Name: Rei Queen Department: Room: Gender: Male Sander And Buffer: : 1970 Requested By: Timo Hart Order Number: [id number] Becky MD: Tory Lopez M.D. Measurements Intervals [place] Rate: 70 P: 25 PA: 218 QRS: 19 QRSD: 105 T: 61 QT: 413 QTc: 447 Interpretive Statements SINUS RHYTHM WITH FIRST DEGREE AV BLOCK POSSIBLE ANTERIOR MYOCARDIAL INFARCTION , OF INDETERMINATE AGE [30 ms Q WAVE IN V3/V4, OR R < 0.2 mV IN V4] Compared to ECG 05/12/2021 22:54:00 First degree AV block now present Sinus bradycardia no longer present Myocardial infarct finding still present Electronically Signed On 10-01-2021 13:25:52 CDT by Tory Lopez M.D. [email or web address]
--- NOTE | 2021-09-30 16:35 | XRR_ITS ---
PROCEDURE INFORMATION: Exam: XR Chest Exam date and time: 09/30/2021 4:50 PM Age: 51 years old Clinical indication: Pain; Chest pressure; Prior surgery; Additional info: Chest pain TECHNIQUE: Imaging protocol: XR of the chest. Views: 1 view. COMPARISON: CR (CHEST, ) 07/27/2021 5:16 PM FINDINGS: Tubes, catheters and devices: There is a central line all in place on the left side extending into the SVC. Lungs: Unremarkable. No consolidation. Pleural spaces: Unremarkable. No pleural effusion. No pneumothorax. Heart/Mediastinum: Unremarkable. No cardiomegaly. Bones/joints: Metallic sternotomy wires are in place. A are XR/XR chest 1V portable [id number] IMPRESSION: 1. No acute findings. 2. Status post sternotomy 3. Left central line is in the SVC
--- NOTE | 2021-09-30 17:11 | W.ED.CHESTPA ---
Documented by User: Timo Mckoy DO 10/04/21 11:03 HPI - Chest Pain General: Chief Complaint: Chest Pain Stated Complaint: CHEST PAIN Time Seen by Provider: 09/30/21 16:26 Source: patient Mode of arrival: ambulatory Limitations: no limitations History of Present Illness: 51-year-old male presents emergency room complaining of chest discomfort. Began around 3 this afternoon he was not doing anything exertional at the time. Patient is currently on aspirin he also is on Eliquis. He is given a total of 324 aspirin prior to arrival. He took 3 sublingual nitro with no relief of pain. Patient has had previous extensive cardiac work-up all of which has been negative including cardiac catheterizations. MD complaint: chest discomfort Onset (ago): minute(s) Timing of current episode: episodic Prior episodes: Yes Onset: during rest Pain location: left chest Pain radiation: left arm Severity: moderate Quality: heaviness Relieving factors: nothing Exacerbating factors: nothing Associated symptoms: Deny abdominal pain, diaphoresis, dyspnea, fever(s), leg edema, nausea, palpitations, sense of impending doom, syncope or vomiting Treatment prior to arrival: aspirin and nitroglycerin Review of Systems Const: Denies: fever(s), chills, body aches, change in appetite or diaphoresis ENMT: Denies: throat pain, ear or mastoid pain, nasal discharge or nasal congestion Card: Reports: chest pain; Denies: palpitations or syncope Resp: Denies: dyspnea, productive cough or non-productive cough GI: Denies: abdominal pain, nausea or vomiting : Denies: flank pain, difficulty urinating, dysuria, urinary frequency or urinary urgency Musc: Denies: neck pain or back pain Skin/Breast: Denies: rash or pruritus Neuro: Denies: headache(s) PFS ED PFSH: Medical History Acute on chronic congestive heart failure Anemia Atherosclerotic heart disease of [place] coronary artery with other forms of angina pectoris hx of CAD with prior stenting of proximal LAD, LCx, RCA Chronic anticoagulation Eliquis Chronic kidney disease -baseline Cr appears to be around 1.5 Chronic systolic heart failure EF=47%, diffuse LV hypokinesis, mildly increased LA size Depression Diabetes A1c-7.6 (08/2019) Foot drop, left GERD (gastroesophageal reflux disease) H/O acute myocardial infarction H/O deep venous thrombosis developed compartment syndrome Hyperlipidemia Hypertension Hypothyroidism Ischemic cardiomyopathy Major depressive disorder, recurrent severe without psychotic features Osteoarthritis of spine Surgical History H/O colonoscopy (11/14/20) 08/2015 H/O esophagogastroduodenoscopy (11/14/20) 08/2015 H/O removal of testicle left H/O skin graft H/O vasectomy History of appendectomy 1995 History of coronary artery stent placement 5x History of excision of mass 06/08/2019: Subcutaneous mass on back History of inguinal hernia repair, bilateral 1999 History of removal of Port-a-Cath Hx of cholecystectomy Peritoneal dialysis catheter in situ (06/15/21) Port-A-Cath in place Family History Grandfather Cancer skin cancer Parkinson disease Brother Hypertension Father Heart disease Mother Hypertension Stroke Aneurysm Grandmother Aneurysm Other Crohn disease Denies family history of Anesthesia complication Bleeding disorder Social History Smoking and tobacco status: never smoked Second hand smoke exposure: No Alcohol intake: former Former alcohol use details: Only holidays Lives independently: Yes Household members: significant other Marital status: Single Current occupational status: disabled History of recent travel: No Physical Exam Const: GENERAL APPEARANCE: cooperative and comfortable ORIENTATION/CONSCIOUSNESS: Yes awake, Yes oriented to person, Yes oriented to place and Yes oriented to time HENMT: COMMON NORMALS: normocephalic, atraumatic and hearing grossly normal bilaterally HEAD & SCALP: normocephalic and atraumatic Neck/C-Spine: COMMON NORMALS: no JVD Resp: COMMON NORMALS: normal respiratory effort, No retractions, No use of accessory muscles and clear to auscultation bilaterally AUSCULTATION: clear to auscultation bilaterally Cardio: COMMON NORMALS: no JVD, regular rate, regular rhythm and No murmurs present (Cardio) RATE: regular rate RHYTHM: regular rhythm GI: COMMON NORMALS: Soft to palpation and No hepatosplenomegaly present AUSCULTATION: Yes normoactive bowel sounds PALPATION: Yes Soft to palpation, No Tenderness to palpation present (GI), No Guarding due to palpation present (GI) and Yes No hepatosplenomegaly present Extremity: COMMON NORMALS: normal to inspection, capillary refill normal, no clubbing, cyanosis or edema, no calf tenderness and no pedal edema Neuro: SENSORIUM/ORIENTATION: Yes oriented to person, Yes oriented to place and Yes oriented to time Skin: COMMON NORMALS: no rashes or lesions noted GENERAL SKIN EXAM: no rashes or lesions noted Course Vital Signs: Vital signs: Vital Signs Temperature 97.4 F L 09/30/21 16:23 Pulse Rate 63 09/30/21 22:15 Respiratory Rate 15 09/30/21 22:15 Blood Pressure 132/75 09/30/21 22:15 Pulse Oximetry 94 09/30/21 22:15 MDM - Chest Pain Medical Decision Making Care signed out to Dr. Cohen At change of shift. See final notes for diagnosis and disposition. Medical Records I reviewed the patient's medical records. Lab Data I reviewed the patient's lab results. : 09/30/21 17:35 09/30/21 17:35 Radiology Impressions Chest X-Ray 09/30/21 16:35 IMPRESSION: 1. No acute findings. 2. Status post sternotomy 3. Left central line is in the SVC Laboratory Results WBC 9.1 10^3/uL (4.0-10.0) 09/30/21 17:35 RBC 4.02 10^6/uL (4.1-5.3) L 09/30/21 17:35 Hgb 12.4 g/dL (11.7-16.6) 09/30/21 17:35 Hct 35.8 % (42.0-52.0) L 09/30/21 17:35 MCV 89.1 fl (80-94) 09/30/21 17:35 MCH 30.8 pg (28.0-34.0) 09/30/21 17:35 MCHC 34.6 g/dL (30.0-36.0) 09/30/21 17:35 RDW 15.1 % (12.1-15.1) 09/30/21 17:35 Plt Count 319 10^3/cmm (130-400) 09/30/21 17:35 MPV 10.0 fL (7.4-10.4) 09/30/21 17:35 Neut % (Auto) 69.9 % 09/30/21 17:35 Lymph % (Auto) 17.1 % 09/30/21 17:35 [place] % (Auto) 9.0 % 09/30/21 17:35 Eos % (Auto) 2.4 % 09/30/21 17:35 Baso % (Auto) 0.9 % 09/30/21 17:35 Neut # (Auto) 6.38 10^3/uL (1.8-7.7) 09/30/21 17:35 Lymph # (Auto) 1.6 10^3/uL (0.8-4.8) 09/30/21 17:35 [place] # (Auto) 0.8 10^3/uL (0.2-0.9) 09/30/21 17:35 Eos # (Auto) 0.2 10^3/uL (0.0-0.8) 09/30/21 17:35 Baso # (Auto) 0.1 10^3/uL (0.0-0.1) 09/30/21 17:35 Nucleated RBC % (auto) 0 % 09/30/21 17:35 Nucleated RBCs # 0.0 /100WBC 09/30/21 17:35 Sodium 135 mmol/L (136-145) L 09/30/21 17:35 Potassium 4.0 mmol/L (3.5-5.1) 09/30/21 17:35 Chloride 95 mmol/L (98-107) L 09/30/21 17:35 Carbon Dioxide 27 mmol/L (22-29) 09/30/21 17:35 Anion Gap 17.0 (5-19) 09/30/21 17:35 BUN 56 mg/dL (6-20) H 09/30/21 17:35 Creatinine 3.0 mg/dL (0.7-1.2) H 09/30/21 17:35 GFR Calculation 22.0 mL/min (90-130) L 09/30/21 17:35 Glucose 110 mg/dL (65-115) 09/30/21 17:35 Calculated Osmolality 296 mOsm/kg (285-295) H 09/30/21 17:35 Calcium 9.3 mg/dL (8.5-10.5) 09/30/21 17:35 Total Bilirubin 0.3 mg/dL (0.15-1.2) 09/30/21 17:35 AST 18 U/L (0-40) 09/30/21 17:35 ALT 16 U/L (0-41) 09/30/21 17:35 Alkaline Phosphatase 113 IU/L (40-130) 09/30/21 17:35 Troponin T Baseline 42 ng/L (0-15) H 09/30/21 17:35 Troponin T 120 Minute 39.91 ng/L (0-15) H 09/30/21 19:11 Delta Troponin T -2.09 ABS# (0-10) L 09/30/21 19:11 Total Protein 7.0 g/dL (6.6-8.7) 09/30/21 17:35 Albumin 3.7 g/dL (3.5-5.2) 09/30/21 17:35 Globulin 3.3 g/dL (1.3-4.6) 09/30/21 17:35 Discharge Plan Discharge Patient Disposition: Home Clinical Impression: Chest pain Condition: Stable Prescriptions: No Action mupirocin 2 % ointment 1 applic topical BID 14 Days Qty: 22 2RF multivitamin [Daily Multi-Vitamin] Tablet 1 tab PO QPM 0RF Trulicity 0.75 mg/0.5 mL pen injector 0.75 mg SUBCUT Q7D 0RF Rx Instructions: ON SAT aspirin 81 mg tablet,delayed release (DR/EC) 81 mg PO DAILY@0600 0RF promethazine 25 mg tablet 25 mg PO Q6H PRN (Reason: Pain) 0RF bumetanide 2 mg tablet 4 mg PO TID 0RF Eliquis 2.5 mg tablet 2.5 mg PO BID 0RF tramadol 50 mg tablet 50 mg PO Q6H PRN0RF trazodone 100 mg tablet 400 mg PO BEDTIME PRN (Reason: insomnia) Qty: 120 2RF citalopram 40 mg tablet 40 mg PO DAILY Qty: 30 2RF bupropion HCl [Wellbutrin XL] 300 mg tablet extended release 24 hr 300 mg PO QAM Qty: 30 2RF nitroglycerin [Nitrostat] 0.4 mg tablet, sublingual 0.4 mg SUBLINGUAL Q5M PRN (Reason: Chest Pain) Qty: 25 2RF isosorbide mononitrate 30 mg tablet extended release 24 hr 30 mg PO BID@0600,1800 Qty: 180 3RF insulin lispro [Humalog U-100 Insulin] 100 unit/mL solution See Rx Instructions .ROUTE .COMPLEX 0RF Rx Instructions: SLIDING SCALE BID @06,18 amlodipine 5 mg Tablet 5 mg PO DAILY Qty: 0 0RF metoprolol tartrate 50 mg tablet 25 mg PO BID@0600,1800 Qty: 0 0RF docusate sodium [Colace] 100 mg capsule 100 mg PO BID Qty: 30 0RF cyclobenzaprine 10 mg tablet 10 mg PO TID PRN (Reason: MUSCLE SPASMS) 0RF atorvastatin 40 mg tablet 40 mg PO QAM 0RF ranolazine [Ranexa] 500 mg tablet extended release 12 hr 500 mg PO BID 0RF levothyroxine 88 mcg tablet 88 mcg PO QAM 0RF Tresiba FlexTouch U-200 200 unit/mL (3 mL) insulin pen 30 unit SUBCUT BEDTIME 0RF lidocaine 5 % adhesive patch,medicated 1 patch transdermal PRN PRN (Reason: Pain) 0RF metolazone 5 mg tablet 5 mg PO Q48H 0RF potassium chloride 20 mEq tablet,ER particles/crystals 20 meq PO DIRECTED 0RF Rx Instructions: 40 mEq PO Take 2 tabs in morning and afternoon and 1 tab in evening; Discharge Orders: Discharge ED (Routine); Ordered 09/30/21 Ordered By: Guillermo Cohen Referrals: Kp Montanez DO [Primary Care Provider] - Discharge Diet: Advance as tolerated Discharge Activity: Increase activity as tolerated Patient Instructions: Chest Pain (ED) Activity Restrictions/Additional Instructions: Follow-up with your doctor early in the week. Coding Level of Care Code ED Director Of Financial Planning for Chg Fwd Exam Comprehensive Documented by User: Guillermo Cohen DO 09/30/21 20:14 HPI - Chest Pain General: Chief Complaint: Chest Pain Stated Complaint: CHEST PAIN Time Seen by Provider: 09/30/21 16:26 [facility] ED PFSH: Medical History Acute on chronic congestive heart failure Anemia Atherosclerotic heart disease of [place] coronary artery with other forms of angina pectoris hx of CAD with prior stenting of proximal LAD, LCx, RCA Chronic anticoagulation Eliquis Chronic kidney disease -baseline Cr appears to be around 1.5 Chronic systolic heart failure EF=47%, diffuse LV hypokinesis, mildly increased LA size Depression Diabetes A1c-7.6 (08/2019) Foot drop, left GERD (gastroesophageal reflux disease) H/O acute myocardial infarction H/O deep venous thrombosis developed compartment syndrome Hyperlipidemia Hypertension Hypothyroidism Ischemic cardiomyopathy Major depressive disorder, recurrent severe without psychotic features Osteoarthritis of spine Surgical History H/O colonoscopy (11/14/20) 08/2015 H/O esophagogastroduodenoscopy (11/14/20) 08/2015 H/O removal of testicle left H/O skin graft H/O vasectomy History of appendectomy 1995 History of coronary artery stent placement 5x History of excision of mass 06/08/2019: Subcutaneous mass on back History of inguinal hernia repair, bilateral 1999 History of removal of Port-a-Cath Hx of cholecystectomy Peritoneal dialysis catheter in situ (06/15/21) Port-A-Cath in place Family History Grandfather Cancer skin cancer Parkinson disease Brother Hypertension Father Heart disease Mother Hypertension Stroke Aneurysm Grandmother Aneurysm Other Crohn disease Denies family history of Anesthesia complication Bleeding disorder Social History Smoking and tobacco status: never smoked Second hand smoke exposure: No Alcohol intake: former Former alcohol use details: Only holidays Lives independently: Yes Household members: significant other Marital status: Single Current occupational status: disabled History of recent travel: No Course Vital Signs: Vital signs: Vital Signs Temperature 97.4 F L 09/30/21 16:23 Pulse Rate 63 09/30/21 22:15 Respiratory Rate 15 09/30/21 22:15 Blood Pressure 132/75 09/30/21 22:15 Pulse Oximetry 94 09/30/21 22:15 MDM - Chest Pain Medical Decision Making Care signed out to Dr. Cohen At change of shift. See final notes for diagnosis and disposition. 51-year-old gentleman signed out to me at shift change by Dr. Quinonez. This gentleman is well-known to the ER. He is here with chest discomfort. It was not relieved by nitroglycerin. His CBC is normal. His creatinine is baseline at 3. His troponin was baseline at 42x0. It did not change at 2 hours. His EKG shows a sinus rhythm, with normal axis, no acute ST changes. Intervals are normal. Rate is 70. Chest x-ray is nonacute. Pain is improved after fentanyl and Benadryl here. Patient has multiple allergies. He has had extensive work-ups from a cardiac standpoint in the past. We will have him follow-up with his primary next week. Lab Data : 09/30/21 17:35 09/30/21 17:35 Radiology Impressions Chest X-Ray 09/30/21 16:35 IMPRESSION: 1. No acute findings. 2. Status post sternotomy 3. Left central line is in the SVC Laboratory Results WBC 9.1 10^3/uL (4.0-10.0) 09/30/21 17:35 RBC 4.02 10^6/uL (4.1-5.3) L 09/30/21 17:35 Hgb 12.4 g/dL (11.7-16.6) 09/30/21 17:35 Hct 35.8 % (42.0-52.0) L 09/30/21 17:35 MCV 89.1 fl (80-94) 09/30/21 17:35 MCH 30.8 pg (28.0-34.0) 09/30/21 17:35 MCHC 34.6 g/dL (30.0-36.0) 09/30/21 17:35 RDW 15.1 % (12.1-15.1) 09/30/21 17:35 Plt Count 319 10^3/cmm (130-400) 09/30/21 17:35 MPV 10.0 fL (7.4-10.4) 09/30/21 17:35 Neut % (Auto) 69.9 % 09/30/21 17:35 Lymph % (Auto) 17.1 % 09/30/21 17:35 [place] % (Auto) 9.0 % 09/30/21 17:35 Eos % (Auto) 2.4 % 09/30/21 17:35 Baso % (Auto) 0.9 % 09/30/21 17:35 Neut # (Auto) 6.38 10^3/uL (1.8-7.7) 09/30/21 17:35 Lymph # (Auto) 1.6 10^3/uL (0.8-4.8) 09/30/21 17:35 [place] # (Auto) 0.8 10^3/uL (0.2-0.9) 09/30/21 17:35 Eos # (Auto) 0.2 10^3/uL (0.0-0.8) 09/30/21 17:35 Baso # (Auto) 0.1 10^3/uL (0.0-0.1) 09/30/21 17:35 Nucleated RBC % (auto) 0 % 09/30/21 17:35 Nucleated RBCs # 0.0 /100WBC 09/30/21 17:35 Sodium 135 mmol/L (136-145) L 09/30/21 17:35 Potassium 4.0 mmol/L (3.5-5.1) 09/30/21 17:35 Chloride 95 mmol/L (98-107) L 09/30/21 17:35 Carbon Dioxide 27 mmol/L (22-29) 09/30/21 17:35 Anion Gap 17.0 (5-19) 09/30/21 17:35 BUN 56 mg/dL (6-20) H 09/30/21 17:35 Creatinine 3.0 mg/dL (0.7-1.2) H 09/30/21 17:35 GFR Calculation 22.0 mL/min (90-130) L 09/30/21 17:35 Glucose 110 mg/dL (65-115) 09/30/21 17:35 Calculated Osmolality 296 mOsm/kg (285-295) H 09/30/21 17:35 Calcium 9.3 mg/dL (8.5-10.5) 09/30/21 17:35 Total Bilirubin 0.3 mg/dL (0.15-1.2) 09/30/21 17:35 AST 18 U/L (0-40) 09/30/21 17:35 ALT 16 U/L (0-41) 09/30/21 17:35 Alkaline Phosphatase 113 IU/L (40-130) 09/30/21 17:35 Troponin T Baseline 42 ng/L (0-15) H 09/30/21 17:35 Troponin T 120 Minute 39.91 ng/L (0-15) H 09/30/21 19:11 Delta Troponin T -2.09 ABS# (0-10) L 09/30/21 19:11 Total Protein 7.0 g/dL (6.6-8.7) 09/30/21 17:35 Albumin 3.7 g/dL (3.5-5.2) 09/30/21 17:35 Globulin 3.3 g/dL (1.3-4.6) 09/30/21 17:35 Discharge Plan Discharge Patient Disposition: Home Clinical Impression: Chest pain Condition: Stable Prescriptions: No Action mupirocin 2 % ointment 1 applic topical BID 14 Days Qty: 22 2RF multivitamin [Daily Multi-Vitamin] Tablet 1 tab PO QPM 0RF Trulicity 0.75 mg/0.5 mL pen injector 0.75 mg SUBCUT Q7D 0RF Rx Instructions: ON SAT aspirin 81 mg tablet,delayed release (DR/EC) 81 mg PO DAILY@0600 0RF promethazine 25 mg tablet 25 mg PO Q6H PRN (Reason: Pain) 0RF bumetanide 2 mg tablet 4 mg PO TID 0RF Eliquis 2.5 mg tablet 2.5 mg PO BID 0RF tramadol 50 mg tablet 50 mg PO Q6H PRN0RF trazodone 100 mg tablet 400 mg PO BEDTIME PRN (Reason: insomnia) Qty: 120 2RF citalopram 40 mg tablet 40 mg PO DAILY Qty: 30 2RF bupropion HCl [Wellbutrin XL] 300 mg tablet extended release 24 hr 300 mg PO QAM Qty: 30 2RF nitroglycerin [Nitrostat] 0.4 mg tablet, sublingual 0.4 mg SUBLINGUAL Q5M PRN (Reason: Chest Pain) Qty: 25 2RF isosorbide mononitrate 30 mg tablet extended release 24 hr 30 mg PO BID@0600,1800 Qty: 180 3RF insulin lispro [Humalog U-100 Insulin] 100 unit/mL solution See Rx Instructions .ROUTE .COMPLEX 0RF Rx Instructions: SLIDING SCALE BID @06,18 amlodipine 5 mg Tablet 5 mg PO DAILY Qty: 0 0RF metoprolol tartrate 50 mg tablet 25 mg PO BID@0600,1800 Qty: 0 0RF docusate sodium [Colace] 100 mg capsule 100 mg PO BID Qty: 30 0RF cyclobenzaprine 10 mg tablet 10 mg PO TID PRN (Reason: MUSCLE SPASMS) 0RF atorvastatin 40 mg tablet 40 mg PO QAM 0RF ranolazine [Ranexa] 500 mg tablet extended release 12 hr 500 mg PO BID 0RF levothyroxine 88 mcg tablet 88 mcg PO QAM 0RF Tresiba FlexTouch U-200 200 unit/mL (3 mL) insulin pen 30 unit SUBCUT BEDTIME 0RF lidocaine 5 % adhesive patch,medicated 1 patch transdermal PRN PRN (Reason: Pain) 0RF metolazone 5 mg tablet 5 mg PO Q48H 0RF potassium chloride 20 mEq tablet,ER particles/crystals 20 meq PO DIRECTED 0RF Rx Instructions: 40 mEq PO Take 2 tabs in morning and afternoon and 1 tab in evening; Discharge Orders: Discharge ED (Routine); Ordered 09/30/21 Ordered By: Guillermo Cohen Referrals: Kp Montanez DO [Primary Care Provider] - Discharge Diet: Advance as tolerated Discharge Activity: Increase activity as tolerated Patient Instructions: Chest Pain (ED) Activity Restrictions/Additional Instructions: Follow-up with your doctor early in the week. Coding Level of Care Code ED Director Of Financial Planning for Radhag Fwd Exam Comprehensive
[2021-09-30 18:11] LABS: Troponin(5th) Baseline 42 ng/L (0-15)
--- NOTE | 2021-09-30 18:35 | ECG_ITS ---
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 Measurements Intervals [place] Rate: 67 P: 21 HI: 216 QRS: 2 QRSD: 107 T: 51 QT: 426 QTc: 453 Interpretive Statements SINUS RHYTHM WITH FIRST DEGREE AV BLOCK POSSIBLE ANTERIOR MYOCARDIAL INFARCTION , OF INDETERMINATE AGE [30 ms Q WAVE IN V3/V4, OR R < 0.2 mV IN V4] Compared to ECG 09/30/2021 16:26:54 No significant changes Electronically Signed On 10-01-2021 13:28:58 CDT by Tory Lopez M.D. [id number]
[2021-09-30 18:38] LABS: Basophils # 0.1 10^3/uL (0.0-0.1); Basophils % 0.9 %; Eosinophils # 0.2 10^3/uL (0.0-0.8); Eosinophils % 2.4 %; Hematocrit 35.8 % (42.0-52.0); Hemoglobin 12.4 g/dL (11.7-16.6); Lymphocytes # 1.6 10^3/uL (0.8-4.8); Lymphocytes % 17.1 %; Mean Corpuscular HGB Conc 34.6 g/dL (30.0-36.0); Mean Corpuscular Hemoglobin 30.8 pg (28.0-34.0); Mean Corpuscular Volume 89.1 fl (80-94); Monocytes # 0.8 10^3/uL (0.2-0.9); Neutrophils # 6.38 10^3/uL (1.8-7.7); Neutrophils % 69.9 %; Nucleated Red Blood Cells % 0 %; Platelet Count 319 10^3/cmm (130-400); Red Blood Count 4.02 10^6/uL (4.1-5.3); Red Cell Distribution Width 15.1 % (12.1-15.1); White Blood Count 9.1 10^3/uL (4.0-10.0)
[2021-09-30 18:53] LABS: Alanine Aminotransferase 16 U/L (0-41); Albumin Level 3.7 g/dL (3.5-5.2); Alkaline Phosphatase 113 IU/L (40-130); Aspartate Amino Transferase 18 U/L (0-40); Blood Urea Nitrogen 56 mg/dL (6-20); Calcium 9.3 mg/dL (8.5-10.5); Carbon Dioxide 27 mmol/L (22-29); Chloride 95 mmol/L (98-107); Globulin 3.3 g/dL (1.3-4.6); Glucose 110 mg/dL (65-115); Osmolality Calculated 296 mOsm/kg (285-295); Sodium 135 mmol/L (136-145); Total Bilirubin 0.3 mg/dL (0.15-1.2)
--- NOTE | 2021-09-30 19:22 | ECG_ITS ---
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 Measurements Intervals [place] Rate: 69 P: 39 CT: 204 QRS: -12 QRSD: 110 T: 53 QT: 428 QTc: 459 Interpretive Statements SINUS RHYTHM POSSIBLE ANTERIOR MYOCARDIAL INFARCTION , OF INDETERMINATE AGE [30 ms Q WAVE IN V3/V4, OR R < 0.2 mV IN V4] Compared to ECG 09/30/2021 18:35:11 First degree AV block no longer present Myocardial infarct finding still present Electronically Signed On 10-01-2021 13:25:19 CDT by Tory Lopez M.D. [id number]
[2021-09-30 19:33] LABS: Troponin 5 2HR 39.91 ng/L (0-15); Troponin 5 2HR Delta -2.09 ABS# (0-10)
[2021-09-30] MEDS: diphenhydrAMINE 50 mg/mL SDV 1mL 25 MG IVP (19:40)
[2021-09-30] MEDS: fentaNYL 50 mcg/mL INJ 2mL IVP (19:42)
--- NOTE | 2021-09-30 20:22 | PC.NURSE ---
190 Assumed pt care from Ethel RAMÍREZ
--- NOTE | 2021-09-30 22:35 | ECG_ITS ---
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 Measurements Intervals [place] Rate: 62 P: 19 TN: 195 QRS: -29 QRSD: 113 T: 55 QT: 437 QTc: 447 Interpretive Statements SINUS RHYTHM ANTERIOR MYOCARDIAL INFARCTION , OF INDETERMINATE AGE [40+ ms Q WAVE AND/OR ST/T ABNORMALITY IN V3/V4] Compared to ECG 09/30/2021 19:24:40 No significant changes Electronically Signed On 10-01-2021 13:28:45 CDT by Tory Lopez M.D. [id number]
== END 2021-09-30 22:15 | disposition home or self-care (01) ==
PROVIDERS: Family Medicine; Emergency Provider Emergency Medicine; PCP Internal Medicine
DX: R07.9 Chest pain, unspecified (principal); I25.118 Atherosclerotic heart disease of native coronary artery with other forms of angina pectoris; I11.0 Hypertensive heart disease with heart failure; I50.22 Chronic systolic (congestive) heart failure; I12.9 Hypertensive chronic kidney disease with stage 1 through stage 4 chronic kidney disease, or unspecified chronic kidney disease; E11.22 Type 2 diabetes mellitus with diabetic chronic kidney disease; N18.9 Chronic kidney disease, unspecified; Z79.82 Long term (current) use of aspirin; Z79.01 Long term (current) use of anticoagulants
CPT/HCPCS: 71045; 80053; 84484; 85025; 93005; 96374; 96375; 99285; J1200; J1642; J3010

== ENCOUNTER → 2021-10-17 08:44 | Day surgery (SDC) | payer MEDICARE, MEDICAID, SELFPAY ==
[2021-10-17 08:50] VITALS: BP 165/79; PULSE 74; RESP 18; TEMP 36.2; O2SAT 93
[2021-10-17 09:16] LABS: Hematocrit 35.7 % (42.0-52.0); Hemoglobin 11.9 g/dL (11.7-16.6); Mean Corpuscular HGB Conc 33.3 g/dL (30.0-36.0); Mean Corpuscular Hemoglobin 30.7 pg (28.0-34.0); Mean Corpuscular Volume 92.2 fl (80-94); Mean Platelet Volume 9.3 fL (7.4-10.4); Platelet Count 271 10^3/cmm (130-400); Red Blood Count 3.87 10^6/uL (4.1-5.3); Red Cell Distribution Width 16.2 % (12.1-15.1); White Blood Count 7.7 10^3/uL (4.0-10.0)
[2021-10-17 09:42] LABS: Creatinine Urine, Random 69 mg/dL (39-259)
[2021-10-17 09:49] LABS: Calcium 8.6 mg/dL (8.5-10.5)
[2021-10-17 09:54] LABS: Microalbum Creatinine Ratio Ur 913 mg/dL (0-20); Microalbumin Random Urine 63 ug/dL (0-20)
[2021-10-17 09:55] LABS: Parathyroid Hormone 139.6 pg/mL (15-65)
[2021-10-17 09:59] LABS: Albumin Level 3.8 g/dL (3.5-5.2); Anion Gap 14.4 (5-19); Blood Urea Nitrogen 32 mg/dL (6-20); Calcium 8.8 mg/dL (8.5-10.5); Carbon Dioxide 28 mmol/L (22-29); Chloride 105 mmol/L (98-107); Glomerular Filtration Rate 24.8 mL/min (90-130); Glucose 75 mg/dL (65-115); Phosphorus 2.7 mg/dL (2.5-4.5); Potassium 4.4 mmol/L (3.5-5.1); Sodium 143 mmol/L (136-145)
[2021-10-17 10:45] LABS: Absolute Eosinophils 0.3 10^3/cmm (0.0-0.7); Absolute Neutrophil 5.2 10^3/cmm (1.4-6.5); Absolute Segmented Neutrophil 5.2 10/cmm (1.6-7.1); Eosinophils 5 %; Lymphocytes 17 %; Lymphocytes Absolute 1.3 10^3/cmm (1.2-3.4); Monocytes Absolute 0.8 10^3/cmm (0.1-0.6); Platelet Estimate Normal (Normal); Segmented Neutrophils 68 %; Total Cells Counted 100 (0-100)
== END ==
PROVIDERS: PCP Internal Medicine; Visit Provider Internal Medicine Nephrology
DX: N18.4 Chronic kidney disease, stage 4 (severe) (principal)
CPT/HCPCS: 36591; 80069; 82044; 82310; 83970; 85007; 85027

== ENCOUNTER 2021-10-22 13:55 | Emergency (ER) | payer MEDICARE, MEDICAID, SELFPAY ==
[2021-10-22 14:03] VITALS: BP 171/71; PULSE 82; RESP 18; TEMP 36.6; O2SAT 97; BMI 40.6
--- NOTE | 2021-10-22 14:23 | W.ED.GENADLT ---
HPI - General Adult General: Chief complaint: General Medical Stated complaint: Groin pain Time Seen by Provider: 10/22/21 14:08 Source: patient Mode of arrival: ambulatory Limitations: no limitations History of Present Illness: 51-year-old male presents to the ER today for left chronic groin pain that is worsened. Patient reports he was set to have scheduled surgery on however due to a skin candidal infection they canceled the surgery. Patient reports he has severe pain all the time from a prior inguinal hernia repair where a mesh has gotten intertwined with the nerve. Patient reports the only thing that helped his pain a little bit was tramadol however he is out and his surgeon will not refill it until he has his surgery. Patient reports he hurts all the time and has been unable to sleep. He has been using the cream that was prescribed for the candidal infection and is hoping for surgery in the next 1 to 2 weeks. Review of Systems General: Reports: 10 or more systems reviewed and unremarkable except in HPI and below PFSH ED PFSH: Medical History Acute on chronic congestive heart failure Anemia Atherosclerotic heart disease of [place] coronary artery with other forms of angina pectoris hx of CAD with prior stenting of proximal LAD, LCx, RCA Chronic anticoagulation Eliquis Chronic kidney disease -baseline Cr appears to be around 1.5 Chronic systolic heart failure EF=47%, diffuse LV hypokinesis, mildly increased LA size Depression Diabetes A1c-7.6 (08/2019) Foot drop, left GERD (gastroesophageal reflux disease) H/O acute myocardial infarction H/O deep venous thrombosis developed compartment syndrome Hyperlipidemia Hypertension Hypothyroidism Ischemic cardiomyopathy Major depressive disorder, recurrent severe without psychotic features Osteoarthritis of spine Surgical History H/O colonoscopy (11/14/20) 08/2015 H/O esophagogastroduodenoscopy (11/14/20) 08/2015 H/O removal of testicle left H/O skin graft H/O vasectomy History of appendectomy 1995 History of coronary artery stent placement 5x History of excision of mass 06/08/2019: Subcutaneous mass on back History of inguinal hernia repair, bilateral 1999 History of removal of Port-a-Cath Hx of cholecystectomy Peritoneal dialysis catheter in situ (06/15/21) Port-A-Cath in place Family History Grandfather Cancer skin cancer Parkinson disease Brother Hypertension Father Heart disease Mother Hypertension Stroke Aneurysm Grandmother Aneurysm Other Crohn disease Denies family history of Anesthesia complication Bleeding disorder Social History Smoking and tobacco status: never smoked Second hand smoke exposure: No Alcohol intake: former Former alcohol use details: Only holidays Lives independently: Yes Household members: significant other Marital status: Single Current occupational status: disabled History of recent travel: No Physical Exam Const: COMMON NORMALS: average body habitus, patient oriented x3 and no limitations Resp: COMMON NORMALS: normal respiratory effort EFFORT & INSPECTION: Yes able to speak in complete sentences Cardio: COMMON NORMALS: regular rate and regular rhythm RATE: regular rate RHYTHM: regular rhythm : MALE GROIN/PERINEUM EXAM: No edema, No erythema and No hernia Extremity: COMMON NORMALS: full ROM Neuro: COMMON NORMALS: patient oriented x3 Psych: COMMON NORMALS: mental status grossly normal, Normal thought process present and cooperative THOUGHT PROCESS: Normal thought process present Skin: COMMON NORMALS: no rashes or lesions noted GENERAL SKIN EXAM: no rashes or lesions noted Course ED course: 51-year-old male presents to the ER today for left groin pain that is chronic but worsening. Patient was set up surgery last week but was unable to due to a skin infection. Patient is out of tramadol and having severe pain. He is scheduled for surgery in the next 1 to 2 weeks pending skin infection improves. Vital Signs: Vital signs: Vital Signs Temperature 97.8 F 10/22/21 14:03 Pulse Rate 82 10/22/21 14:03 Respiratory Rate 18 10/22/21 14:03 Blood Pressure 171/71 10/22/21 14:03 Pulse Oximetry 97 10/22/21 14:03 [facility] - General Adult Medical Decision Making 51-year-old male presents to the ER today for left groin pain that is chronic but worsening. Patient was set up surgery last week but was unable to due to a skin infection. Patient is out of tramadol and having severe pain. He is scheduled for surgery in the next 1 to 2 weeks pending skin infection improves. I spoke with Dr. Macias about this patient, we will refill his tramadol at this time. Patient should follow-up with his PCP in the next 1 to 2 weeks if he is unable to get back into the surgeon for surgery. Return to the ER with new or worsening symptoms. Patient verbalized understanding and is in agreement with the treatment plan. Critical Care Time Critical Care Time: Critical Care Time: No Discharge Plan Discharge Patient Disposition: Home Clinical Impression: Chronic groin pain Condition: Stable Prescriptions: New tramadol 50 mg tablet 50 mg PO Q6H PRN (Reason: pain) Qty: 30 0RF No Action mupirocin 2 % ointment 1 applic topical BID 14 Days Qty: 22 2RF multivitamin [Daily Multi-Vitamin] Tablet 1 tab PO QPM 0RF Trulicity 0.75 mg/0.5 mL pen injector 0.75 mg SUBCUT Q7D 0RF Rx Instructions: ON SAT aspirin 81 mg tablet,delayed release (DR/EC) 81 mg PO DAILY@0600 0RF promethazine 25 mg tablet 25 mg PO Q6H PRN (Reason: Pain) 0RF bumetanide 2 mg tablet 4 mg PO TID 0RF Eliquis 2.5 mg tablet 2.5 mg PO BID 0RF tramadol 50 mg tablet 50 mg PO Q6H PRN (Reason: Pain) 0RF trazodone 100 mg tablet 400 mg PO BEDTIME PRN (Reason: insomnia) Qty: 120 2RF citalopram 40 mg tablet 40 mg PO DAILY Qty: 30 2RF bupropion HCl [Wellbutrin XL] 300 mg tablet extended release 24 hr 300 mg PO QAM Qty: 30 2RF nitroglycerin [Nitrostat] 0.4 mg tablet, sublingual 0.4 mg SUBLINGUAL Q5M PRN (Reason: Chest Pain) Qty: 25 2RF isosorbide mononitrate 30 mg tablet extended release 24 hr 30 mg PO BID@0600,1800 Qty: 180 3RF insulin lispro [Humalog U-100 Insulin] 100 unit/mL solution See Rx Instructions .ROUTE .COMPLEX 0RF Rx Instructions: SLIDING SCALE BID @06,18 amlodipine 5 mg Tablet 5 mg PO DAILY Qty: 0 0RF metoprolol tartrate 50 mg tablet 25 mg PO BID@0600,1800 Qty: 0 0RF docusate sodium [Colace] 100 mg capsule 100 mg PO BID Qty: 30 0RF cyclobenzaprine 10 mg tablet 10 mg PO TID PRN (Reason: MUSCLE SPASMS) 0RF atorvastatin 40 mg tablet 40 mg PO QAM 0RF ranolazine [Ranexa] 500 mg tablet extended release 12 hr 500 mg PO BID 0RF levothyroxine 88 mcg tablet 88 mcg PO QAM 0RF Tresiba FlexTouch U-200 200 unit/mL (3 mL) insulin pen 30 unit SUBCUT BEDTIME 0RF lidocaine 5 % adhesive patch,medicated 1 patch transdermal PRN PRN (Reason: Pain) 0RF metolazone 5 mg tablet 5 mg PO Q48H 0RF potassium chloride 20 mEq tablet,ER particles/crystals 20 meq PO DIRECTED 0RF Rx Instructions: 40 mEq PO Take 2 tabs in morning and afternoon and 1 tab in evening; Discharge Orders: Discharge ED (Routine); Ordered 10/22/21 Ordered By: Lisette Garcia Referrals: Kp Montanez DO [Primary Care Provider] - Discharge Diet: Usual diet Discharge Activity: Resume usual activity Patient Instructions: Opioid Safety Activity Restrictions/Additional Instructions: Take medication as prescribed. Follow-up with PCP this week or with surgeon in [place] at next available appointment. Return to the ER with new or worsening symptoms. Coding Level of Care Code ED Cyber Security Architect for Aaron Irene
== END 2021-10-22 14:28 | disposition home or self-care (01) ==
PROVIDERS: Emergency Provider Physician Assistant; PCP Internal Medicine
DX: R10.30 Lower abdominal pain, unspecified (principal); G89.29 Other chronic pain
CPT/HCPCS: 99283

== ENCOUNTER → 2021-11-14 12:02 | Day surgery (SDC) | payer MEDICARE, MEDICAID, SELFPAY ==
[2021-11-14 12:20] VITALS: BP 174/112; PULSE 100; RESP 18; TEMP 36.6; O2SAT 98
== END ==
PROVIDERS: PCP Internal Medicine; Visit Provider Internal Medicine Nephrology
DX: N18.4 Chronic kidney disease, stage 4 (severe) (principal)
CPT/HCPCS: 96523

== ENCOUNTER 2021-12-05 12:42 | Outpatient (CLI) | payer MEDICARE, MEDICAID, SELFPAY ==
--- NOTE | 2021-12-05 12:52 | US_ITS ---
WS: [id number] RENAL ULTRASOUND HISTORY: R FLANK PAIN/CHRONIC KIDNEY DZ STAGE 4 COMPARISON: 04/13/2021 TECHNIQUE: 2-D and color Doppler imaging of the kidney submitted. Right kidney: 11.6 cm x 5.6 cm x 4.6 cm. Normal size kidney with moderate increased echogenicity. No hydronephrosis or mass. No significant co rtical thinning. There is a small amount of fluid adjacent to the RIGHT kidney. Left kidney: 11.3 cm x 5.4 cm x 5.0 cm. Normal size kidney. No cortical thinning. No hydronephrosis or mass. Aorta: Mild atherosclerosis. Poorly visualized. Urinary Bladder: Moderately well distended. Mild prostate heterogeneity. US/US renal BI* [id number] IMPRESSION: 1. Mild to moderate chronic medical renal disease. Kidneys are similar size to the prior study with no progressive atrophy. 2. No hydronephrosis.
== END 2021-12-05 12:43 | disposition home or self-care (01) ==
LOC: RAD 12:43
PROVIDERS: PCP Internal Medicine; Visit Provider Registered Nurse
DX: R10.9 Unspecified abdominal pain (principal); N18.4 Chronic kidney disease, stage 4 (severe)
CPT/HCPCS: 76770

== ENCOUNTER → 2021-12-11 09:18 | Day surgery (SDC) | payer MEDICARE, MEDICAID, SELFPAY ==
[2021-12-11 09:25] VITALS: BP 145/95; PULSE 102; RESP 18; TEMP 36.7; O2SAT 97
== END ==
PROVIDERS: PCP Internal Medicine; Visit Provider Surgery
DX: N18.4 Chronic kidney disease, stage 4 (severe) (principal)
CPT/HCPCS: 96523; 99214

== ENCOUNTER → 2021-12-25 11:43 | Outpatient (BNVA) | payer MEDICARE, MEDICAID, SELFPAY | PROVIDERS: PCP Internal Medicine; Visit Provider Podiatrist Foot & Ankle Surgery | DX: M20.42 Other hammer toe(s) (acquired), left foot (principal); X58.XXXA Exposure to other specified factors, initial encounter; L60.3 Nail dystrophy; E11.9 Type 2 diabetes mellitus without complications; M21.372 Foot drop, left foot; M20.40 Other hammer toe(s) (acquired), unspecified foot; S90.212A Contusion of left great toe with damage to nail, initial encounter; Z79.4 Long term (current) use of insulin | CPT/HCPCS: 11721; 11730 ==

== ENCOUNTER → 2022-01-08 09:56 | Day surgery (SDC) | payer MEDICARE, MEDICAID, SELFPAY ==
[2022-01-08 10:04] VITALS: BP 145/89; PULSE 94; RESP 18; TEMP 36.5; O2SAT 96
== END ==
PROVIDERS: PCP Internal Medicine; Visit Provider Surgery
DX: N18.4 Chronic kidney disease, stage 4 (severe) (principal)
CPT/HCPCS: 96523

== ENCOUNTER → 2022-01-15 14:30 | Outpatient (BNVA) | payer MEDICARE, MEDICAID, SELFPAY | PROVIDERS: PCP Internal Medicine; Visit Provider Podiatrist Foot & Ankle Surgery | DX: L60.0 Ingrowing nail (principal) | CPT/HCPCS: 99213 ==

== ENCOUNTER 2022-01-24 05:41 | Emergency (ER) | payer MEDICARE, MEDICAID, SELFPAY ==
[2022-01-24] VITALS (9 sets, daily range): BP systolic 164–203; BP diastolic 89–112; PULSE 89–107; RESP 13–18; TEMP 36.8; O2SAT 94–96
--- NOTE | 2022-01-24 06:08 | W.ED.GENADLT ---
HPI - General Adult General: Chief complaint: General Medical Stated complaint: abd pain Time Seen by Provider: 01/24/22 06:07 History of Present Illness: Mr. Queen is a 51-year-old gentleman with complex past medical history presents to the emergency department due to concern over right groin pain. Patient reports approximately 1 year history of intermittent groin pain concerning for either nerve issue or inguinal hernia. Previously pain has been intermittent in nature mostly positional however over the past 3 days this has become more constant. Does endorse mild difficulty with bowel movements. Still having flatus. Symptoms are worse with movement. Intensity is moderate to severe. Has tried home medications with only mild relief. No other specific changes in health, exacerbating, or alleviating factors identified. Onset (ago): day(s) Location: pelvis and right Severity: severe Quality: aching Pain Consistency: constant Relieving factors: none Exacerbating factors: movement Review of Systems General: Reports: 10 or more systems reviewed and unremarkable except in HPI and below PFSH ED PFSH: Medical History Acute on chronic congestive heart failure Anemia Atherosclerotic heart disease of [place] coronary artery with other forms of angina pectoris hx of CAD with prior stenting of proximal LAD, LCx, RCA Chronic anticoagulation Eliquis Chronic kidney disease -baseline Cr appears to be around 1.5 Chronic systolic heart failure EF=47%, diffuse LV hypokinesis, mildly increased LA size Depression Diabetes A1c-7.6 (08/2019) Foot drop, left GERD (gastroesophageal reflux disease) H/O acute myocardial infarction H/O deep venous thrombosis developed compartment syndrome Hyperlipidemia Hypertension Hypothyroidism Ischemic cardiomyopathy Major depressive disorder, recurrent severe without psychotic features Osteoarthritis of spine Surgical History H/O colonoscopy (11/14/20) 08/2015 H/O esophagogastroduodenoscopy (11/14/20) 08/2015 H/O removal of testicle left H/O skin graft H/O vasectomy History of appendectomy 1995 History of coronary artery stent placement 5x History of excision of mass 06/08/2019: Subcutaneous mass on back History of inguinal hernia repair, bilateral 1999 History of removal of Port-a-Cath Hx of cholecystectomy Peritoneal dialysis catheter in situ (06/15/21) Port-A-Cath in place Family History Grandfather Cancer skin cancer Parkinson disease Brother Hypertension Father Heart disease Mother Hypertension Stroke Aneurysm Grandmother Aneurysm Other Crohn disease Denies family history of Anesthesia complication Bleeding disorder Social History Smoking and tobacco status: never smoked Second hand smoke exposure: No Smoking risk assessment/counseling performed?: No Alcohol intake: former Year of sobriety/quit date alcohol: 2015 Former alcohol use details: Only holidays Desire information about alcohol rehabilitation?: No Counseling given: No Lives independently: Yes Household members: significant other Marital status: Single Current occupational status: disabled History of recent travel: No Physical Exam Const: COMMON NORMALS: alert GENERAL APPEARANCE: cooperative, well developed and in distress (Uncomfortable appearance due to pain) HENMT: COMMON NORMALS: normocephalic and atraumatic HEAD & SCALP: normocephalic and atraumatic Eye: COMMON NORMALS: conjunctivae normal CONJUNCTIVA: Yes conjunctivae normal SCLERA: sclerae normal Neck/C-Spine: COMMON NORMALS: supple GENERAL: Yes trachea midline Resp: COMMON NORMALS: clear to auscultation bilaterally EFFORT & INSPECTION: Yes able to speak in complete sentences AUSCULTATION: clear to auscultation bilaterally Cardio: COMMON NORMALS: regular rate and regular rhythm RATE: regular rate RHYTHM: regular rhythm GI: COMMON NORMALS: Soft to palpation PALPATION: Yes Soft to palpation, Yes Tenderness to palpation present (GI) Details: RLQ, No Guarding due to palpation present (GI) and No Rigid due to palpation PERCUSSION: normal to percussion : OTHER: Tenderness palpation along the right inguinal region however no appreciable hernia on my exam. Extremity: GENERAL: Yes normal exam except as noted and No edema Neuro: COMMON NORMALS: moves all extremities SENSORIUM/ORIENTATION: Yes alert and No Orientation impaired Psych: COMMON NORMALS: mental status grossly normal and Normal thought process present THOUGHT PROCESS: Normal thought process present Course ED course: - Patient was seen and evaluated by me at bedside - Patient placed on cardiac monitors, IV access obtained - Initial evaluation notable for exam as above. - Labs personally interpreted by me. EKG notable for sinus rhythm with nonspecific ST segment abnormalities, no STEMI -Analgesia, antiemetic given - Labs notable for leukocytosis, normal hemoglobin. Metabolic panel with mild evidence of dehydration, no UTI - Imaging notable for no evidence of hernia, patient does have fluid-filled small bowel. Ultrasound negative for acute testicular pathology. - Upon serial reexamination after treatment the patient was improved. Antihypertensives also given. - Based on patient history, evaluation, and testing as interpreted the most likely cause of the patient's condition is enteritis - The results of ED evaluation were discussed with the patient including prescriptions and/or symptomatic cares (if applicable) including appropriate and responsible use, followup plan, and return precautions. The patient verbalized understanding and felt safe for discharge. - Patient discharged in satisfactory condition. Note: Click bubbles or prepopulated saldaña in note writing are used for assistance with data collection and billing and are inherently more limited than narrative and other text portions of this note. Please use narrative for additional clinical history and defer to narrative/free test for any case of contradictory information. If information appears in only free text or click bubble it should be considered present or absent as reported. Please contact note sports book writer for clarifications of clinical information or contradictory information. MDM is a brief summary, contradictory or erroneous seeming information should be clarified and full note should be reviewed. Vital Signs: Vital signs: Vital Signs Temperature 98.3 F 01/24/22 05:47 Pulse Rate 92 01/24/22 09:55 Respiratory Rate 14 01/24/22 09:55 Blood Pressure 179/92 01/24/22 09:55 Pulse Oximetry 94 01/24/22 09:55 Oxygen Delivery Me thod 01/24/22 09:55 MDM - General Adult Medical Decision Making 51-year-old gentleman presenting to the ER with concern over hernia though no hernia palpable on exam. Evaluation notable for likely enteritis. Patient proved with symptomatic treatment. Satisfactory for outpatient management with strict return precautions and follow-up plan given. Medical Records I reviewed the patient's medical records. Lab Data I reviewed the patient's lab results. : 01/24/22 06:44 01/24/22 06:44 Radiology Impressions Abdomen/Pelvis CT 01/24/22 06:15 IMPRESSION: 1. No evidence of RIGHT inguinal hernia or fluid collection. 2. Prior cholecystectomy. 3. Single Prominent cluster of fluid-filled small bowel in the lower abdomen and pelvis measuring 3 cm is nonspecific although no evidence of high-grade small or large bowel obstruction. This may be due to adhesions and can be followed up with CT abdomen pelvis to assess for developing obstruction if obstructive symptoms. 4. Normal sigmoid colon. Colon is decompressed. 5. Pelvic catheter. 6. Stable bilateral adrenal adenomas. Scrotum Ultrasound 01/24/22 07:19 IMPRESSION: 1. Status post LEFT orchiectomy. 2. Normal RIGHT testicle. No mass or orchitis. 3. No scrotal hernia. Laboratory Results WBC 19.0 10^3/uL (4.0-10.0) H 01/24/22 06:44 RBC 4.30 10^6/uL (4.1-5.3) 01/24/22 06:44 Hgb 13.0 g/dL (11.7-16.6) 01/24/22 06:44 Hct 37.8 % (42.0-52.0) L 01/24/22 06:44 MCV 87.9 fl (80-94) 01/24/22 06:44 MCH 30.2 pg (28.0-34.0) 01/24/22 06:44 MCHC 34.4 g/dL (30.0-36.0) 01/24/22 06:44 RDW 13.5 % (12.1-15.1) 01/24/22 06:44 Plt Count 364 10^3/cmm (130-400) 01/24/22 06:44 MPV 9.8 fL (7.4-10.4) 01/24/22 06:44 Neut % (Auto) 85.5 % 01/24/22 06:44 Lymph % (Auto) 7.4 % 01/24/22 06:44 [place] % (Auto) 6.0 % 01/24/22 06:44 Eos % (Auto) 0.1 % 01/24/22 06:44 Baso % (Auto) 0.3 % 01/24/22 06:44 Neut # (Auto) 16.25 10^3/uL (1.8-7.7) H 01/24/22 06:44 Lymph # (Auto) 1.4 10^3/uL (0.8-4.8) 01/24/22 06:44 [place] # (Auto) 1.2 10^3/uL (0.2-0.9) H 01/24/22 06:44 Eos # (Auto) 0.0 10^3/uL (0.0-0.8) 01/24/22 06:44 Baso # (Auto) 0.1 10^3/uL (0.0-0.1) 01/24/22 06:44 Nucleated RBC % (auto) 0 % 01/24/22 06:44 Nucleated RBCs # 0.0 /100WBC 01/24/22 06:44 Sodium 133 mmol/L (136-145) L 01/24/22 06:44 Potassium 3.1 mmol/L (3.5-5.1) L 01/24/22 06:44 Chloride 90 mmol/L (98-107) L 01/24/22 06:44 Carbon Dioxide 28 mmol/L (22-29) 01/24/22 06:44 Anion Gap 18.1 (5-19) 01/24/22 06:44 BUN 61 mg/dL (6-20) H 01/24/22 06:44 Creatinine 4.2 mg/dL (0.7-1.2) H 01/24/22 06:44 GFR Calculation 14.9 mL/min (90-130) L 01/24/22 06:44 Glucose 341 mg/dL (65-115) H 01/24/22 06:44 Calculated Osmolality 307 mOsm/kg (285-295) H 01/24/22 06:44 Lactate 1.8 mmol/L (0.5-2.2) 01/24/22 06:44 Calcium 9.1 mg/dL (8.5-10.5) 01/24/22 06:44 Total Bilirubin 0.5 mg/dL (0.15-1.2) 01/24/22 06:44 AST 15 U/L (0-40) 01/24/22 06:44 ALT 12 U/L (0-41) 01/24/22 06:44 Alkaline Phosphatase 136 U/L (40-130) H 01/24/22 06:44 Total Protein 6.6 g/dL (6.6-8.7) 01/24/22 06:44 Albumin 3.5 g/dL (3.5-5.2) 01/24/22 06:44 Globulin 3.1 g/dL (1.3-4.6) 01/24/22 06:44 Lipase 32 U/L (13-60) 01/24/22 06:44 Urine Color Yellow (Yellow) 01/24/22 08:44 Urine Appearance Clear (CLEAR) 01/24/22 08:44 Urine pH 6 (5-7) 01/24/22 08:44 Ur Specific [place] 1.010 (1.005-1.030) 01/24/22 08:44 Urine Protein 3+ (Negative) H 01/24/22 08:44 Urine Glucose (UA) 4+ (Normal) H 01/24/22 08:44 Urine Ketones 1+ (Negative) H 01/24/22 08:44 Urine Blood 2+ (Negative) H 01/24/22 08:44 Urine Nitrate Negative (Negative) 01/24/22 08:44 Urine Bilirubin Neg (Negative) 01/24/22 08:44 Urine Urobilinogen Norm mg/dL (Negative) 01/24/22 08:44 Ur Leukocyte Esterase Negative (Negative) 01/24/22 08:44 Urine RBC 0-4 /hpf (0-2) H 01/24/22 08:44 Urine WBC None /hpf (0-5) 01/24/22 08:44 Ur Squamous Epith Cells 0-4 /hpf (0-5) H 01/24/22 08:44 Amorphous Sediment Not Reportable 01/24/22 08:44 Urine Bacteria None /hpf (NONE) 01/24/22 08:44 Discharge Plan Discharge Patient Disposition: Home Clinical Impression: Abdominal pain, Constipation, Enteritis, Leukocytosis, Hematuria Condition: Stable Prescriptions: New oxycodone 5 mg tablet 5 mg PO Q4H PRN (Reason: pain) Qty: 10 0RF azithromycin 500 mg tablet See Rx Instructions .ROUTE .COMPLEX Qty: 3 0RF Rx Instructions: For 500 mg dose pack: take 500 mg once daily for 3 days No Action mupirocin 2 % ointment 1 applic topical BID 14 Days Qty: 22 2RF multivitamin [Daily Multi-Vitamin] Tablet 1 tab PO QPM Trulicity 0.75 mg/0.5 mL pen injector 0.75 mg SUBCUT Q7D Rx Instructions: ON SAT aspirin 81 mg tablet,delayed release (DR/EC) 81 mg PO DAILY@0600 promethazine 25 mg tablet 25 mg PO Q6H PRN (Reason: Pain) bumetanide 2 mg tablet 4 mg PO TID Eliquis 2.5 mg tablet 2.5 mg PO BID bupropion HCl [Wellbutrin XL] 300 mg tablet extended release 24 hr 300 mg PO QAM Qty: 30 2RF trazodone 100 mg tablet 400 mg PO BEDTIME PRN (Reason: insomnia) Qty: 120 2RF citalopram 40 mg tablet 40 mg PO DAILY Qty: 30 2RF mupirocin 2 % ointment 1 applic topical BID 14 Days Qty: 22 2RF nitroglycerin [Nitrostat] 0.4 mg tablet, sublingual 0.4 mg SUBLINGUAL Q5M PRN (Reason: Chest Pain) Qty: 25 2RF isosorbide mononitrate 30 mg tablet extended release 24 hr 30 mg PO BID@0600,1800 Qty: 180 3RF atorvastatin 40 mg tablet 40 mg PO QAM Qty: 90 2RF ranolazine [Ranexa] 500 mg tablet extended release 12 hr 500 mg PO BID Qty: 180 3RF insulin lispro [Humalog U-100 Insulin] 100 unit/mL solution See Rx Instructions .ROUTE .COMPLEX Rx Instructions: SLIDING SCALE BID @06,18 amlodipine 5 mg Tablet 5 mg PO DAILY Qty: 0 0RF metoprolol tartrate 50 mg tablet 25 mg PO BID@0600,1800 Qty: 0 0RF docusate sodium [Colace] 100 mg capsule 100 mg PO BID Qty: 30 0RF cyclobenzaprine 10 mg tablet 10 mg PO TID PRN (Reason: MUSCLE SPASMS) levothyroxine 88 mcg tablet 88 mcg PO QAM Tresiba FlexTouch U-200 200 unit/mL (3 mL) insulin pen 38 unit SUBCUT BEDTIME lidocaine 5 % adhesive patch,medicated 1 patch transdermal PRN PRN (Reason: Pain) metolazone 5 mg tablet 5 mg PO Q48H potassium chloride 20 mEq tablet,ER particles/crystals 20 meq PO DIRECTED Rx Instructions: 40 mEq PO Take 2 tabs in morning and afternoon and 1 tab in evening; Discharge Orders: Discharge ED (Routine); Ordered 01/24/22 Ordered By: Van Barry Referrals: Kp Montanez, [Primary Care Provider] - Discharge Diet: Usual diet Discharge Activity: Increase activity as tolerated Patient Instructions: Constipation (ED), Hematuria (ED), Abdominal Pain (ED), Enteritis (ED), Opioid Safety Activity Restrictions/Additional Instructions: Thank you for visiting the emergency department. You were seen and evaluated for abdominal pain. The exact cause of your symptoms is unclear, no testicular pathology or hernia was identified on imaging. You do have evidence of irritation or infection of the small intestines which will be treated. Additionally you have constipation, you should take MiraLAX 1 capful or packet 3 times daily for the next 4 days follow adjustment as needed for continued soft bowel movements. Please follow-up with your medical care team. Return to the emergency department for uncontrolled symptoms or anything else that you are concerned about a feel needs emergency department evaluation. Coding Level of Care Code ED Desk Clerk for Aaron Irene Exam Comprehensive
--- NOTE | 2022-01-24 06:15 | CT_ITS ---
WS: [id number] CT ABDOMEN PELVIS TECHNIQUE: Noncontrast CT of the abdomen and pelvis with coronal and sagittal reformatted images. CLINICAL INFORMATION: R groin pain, reports hx inguinal hernia COMPARISON: CT September 05, 2020 DLP: 1152.[address] scans at [facility] use at least one of these dose optimization techniques: automated e xposure control; mA and/or kV adjustment per patient size (includes targeted exams where dose is matc hed to clinical indication); or iterative reconstruction. FINDINGS: No evidence of RIGHT inguinal hernia or fluid collection. Prior cholecystectomy. Lung bases are well aerated. Subsegmental atelectasis in the lung bases. Prior sternotomy. Noncontrast liver is normal. Splenic granulomas. Normal GE junction. Noncontrast pancrea s is normal. Vascular calcification. No hydronephrosis in either kidney. Normal caliber abdominal aor ta. No aneurysm. No evidence of high-grade small or large bowel obstruction. Slightly prominent fluid distended loop of small bowel in the lower abdomen and pelvis measuring 3 cm is nonspecific. No evidence of high-grade obstruction. Normal sigmoid colon. Colon is decompressed. Pelvic catheter. Stable bilateral adrenal adenomas. CT/CT abdomen pelvis wo con [id number] IMPRESSION: 1. No evidence of RIGHT inguinal hernia or fluid collection. 2. Prior cholecystectomy. 3. Single Prominent cluster of fluid-filled small bowel in the lower abdomen a nd pelvis measuring 3 cm is nonspecific although no evidence of high-grade smal l or large bowel obstruction. This may be due to adhesions and can be followed up with CT abdomen pelvis to assess for developing obstruction if obstructive s ymptoms. 4. Normal sigmoid colon. Colon is decompressed. 5. Pelvic catheter. 6. Stable bilateral adrenal adenomas.
[2022-01-24] MEDS: morphine 4 mg/mL SDV 1 mL IVP ×2 (06:48→09:06)
--- NOTE | 2022-01-24 07:10 | ECG_ITS ---
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 Measurements Intervals [place] Rate: 92 P: 36 PA: 195 QRS: -18 QRSD: 108 T: 68 QT: 315 QTc: 391 Interpretive Statements SINUS RHYTHM POSSIBLE LEFT ATRIAL ENLARGEMENT [-0.1mV P-WAVE IN V1/V2] POSSIBLE ANTERIOR MYOCARDIAL INFARCTION , OF INDETERMINATE AGE [30 ms Q WAVE IN V3/V4, OR R < 0.2 mV IN V4] Compared to ECG 09/30/2021 22:30:31 No significant changes Electronically Signed On 01-24-2022 19:46:29 CDT by Garirson Mckinney M.D. [id number]
[2022-01-24 07:13] LABS: Basophils # 0.1 10^3/uL (0.0-0.1); Basophils % 0.3 %; Eosinophils % 0.1 %; Hematocrit 37.8 % (42.0-52.0); Lymphocytes # 1.4 10^3/uL (0.8-4.8); Lymphocytes % 7.4 %; Mean Corpuscular HGB Conc 34.4 g/dL (30.0-36.0); Mean Corpuscular Hemoglobin 30.2 pg (28.0-34.0); Mean Corpuscular Volume 87.9 fl (80-94); Mean Platelet Volume 9.8 fL (7.4-10.4); Monocytes # 1.2 10^3/uL (0.2-0.9); Neutrophils # 16.25 10^3/uL (1.8-7.7); Neutrophils % 85.5 %; Nucleated Red Blood Cells % 0 %; Platelet Count 364 10^3/cmm (130-400); Red Cell Distribution Width 13.5 % (12.1-15.1)
[2022-01-24 07:19] LABS: Lactate (Lactic Acid level) 1.8 mmol/L (0.5-2.2)
--- NOTE | 2022-01-24 07:19 | US_ITS ---
WS: [id number] TESTICULAR ULTRASOUND HISTORY: R groin pain, eval torsion vs other COMPARISON: None available. TECHNIQUE: Real-time and color Doppler imaging or utilized to perform a testicular ultrasound. Right testicle: 4.4 cm x 2.5 cm x 2.1 cm. Normal size and echogenicity. No mass or torsion. Normal color Doppler is present throughout. Systolic and diastolic velocities are both present. No significant hydrocele. Right epididymis: Normal epididymis with no increased vascularity. Left testicle: Prior orchiectomy. No significant hydrocele in the scrotal sac. No scrotal wall thickening. US/US scrotum [id number] IMPRESSION: 1. Status post LEFT orchiectomy. 2. Normal RIGHT testicle. No mass or orchitis. 3. No scrotal hernia.
[2022-01-24 07:20] LABS: Alanine Aminotransferase 12 U/L (0-41); Albumin Level 3.5 g/dL (3.5-5.2); Alkaline Phosphatase 136 U/L (40-130); Anion Gap 18.1 (5-19); Aspartate Amino Transferase 15 U/L (0-40); Blood Urea Nitrogen 61 mg/dL (6-20); Calcium 9.1 mg/dL (8.5-10.5); Carbon Dioxide 28 mmol/L (22-29); Chloride 90 mmol/L (98-107); Globulin 3.1 g/dL (1.3-4.6); Glomerular Filtration Rate 14.9 mL/min (90-130); Glucose 341 mg/dL (65-115); Lipase 32 U/L (13-60); Osmolality Calculated 307 mOsm/kg (285-295); Potassium 3.1 mmol/L (3.5-5.1); Sodium 133 mmol/L (136-145); Total Bilirubin 0.5 mg/dL (0.15-1.2); Total Protein 6.6 g/dL (6.6-8.7)
[2022-01-24 09:00] LABS: Add Urine Microscopic? YES; Bilirubin Urine Neg (Negative); Blood Urine 2+ (Negative); Glucose Urine UA 4+ (Normal); Ketones Urine 1+ (Negative); Leukocyte Esterase Urine Negative (Negative); Nitrate Urine Negative (Negative); Protein Urine 3+ (Negative); Urine Appearance Clear (CLEAR); Urine Color Yellow (Yellow); Urobilinogen Urine Norm (Negative); pH Urine 6 (5-7)
[2022-01-24 09:06] LABS: Add Urine Culture? No; RBC Urine 0-4 /hpf (0-2); Squamous Epithelial Cell Urine 0-4 /hpf (0-5)
[2022-01-24] MEDS: amlodipine 5 mg Tablet PO (09:06)
[2022-01-24] MEDS: metoprolol tartrate 25 mg Tablet PO (09:06)
[2022-01-24] MEDS: promethazine 25 mg/mL SDV 1 mL IM (09:07)
== END 2022-01-24 09:57 | disposition home or self-care (01) ==
PROVIDERS: Emergency Provider Emergency Medicine; PCP Internal Medicine
DX: K59.00 Constipation, unspecified (principal); K52.9 Noninfective gastroenteritis and colitis, unspecified; D72.829 Elevated white blood cell count, unspecified; R31.9 Hematuria, unspecified; Z79.01 Long term (current) use of anticoagulants; Z79.899 Other long term (current) drug therapy; Z79.82 Long term (current) use of aspirin; Z79.4 Long term (current) use of insulin; I25.10 Atherosclerotic heart disease of native coronary artery without angina pectoris; I11.0 Hypertensive heart disease with heart failure; I50.22 Chronic systolic (congestive) heart failure; E11.9 Type 2 diabetes mellitus without complications; I25.2 Old myocardial infarction; E78.5 Hyperlipidemia, unspecified
CPT/HCPCS: 74176; 76870; 80053; 81001; 83605; 83690; 85025; 93005; 96372; 96374; 96376; 99285; J1642; J2270; J2550

== ENCOUNTER → 2022-02-01 11:34 | Day surgery (SDC) | payer MEDICARE, MEDICAID, SELFPAY ==
[2022-02-01 11:45] VITALS: BP 141/101; PULSE 89; RESP 18; TEMP 36.7; O2SAT 94
[2022-02-01 13:03] LABS: Free T4 Free Thyroxine 1.09 ng/dL (0.82-1.77); Thyroid Stimulating Hormone 2.49 uIU/mL (0.27-4.20)
== END ==
PROVIDERS: PCP Internal Medicine; Visit Provider Internal Medicine
DX: E03.9 Hypothyroidism, unspecified (principal)
CPT/HCPCS: 36591; 84439; 84443

== ENCOUNTER → 2022-02-13 09:59 | Outpatient (BNVA) | payer MEDICARE, MEDICAID, SELFPAY | PROVIDERS: PCP Internal Medicine; Visit Provider Podiatrist Foot & Ankle Surgery | DX: S90.414D Abrasion, right lesser toe(s), subsequent encounter (principal); X58.XXXD Exposure to other specified factors, subsequent encounter; Z79.4 Long term (current) use of insulin; S90.212D Contusion of left great toe with damage to nail, subsequent encounter; L60.3 Nail dystrophy; M20.42 Other hammer toe(s) (acquired), left foot; E11.42 Type 2 diabetes mellitus with diabetic polyneuropathy | CPT/HCPCS: 11721; 99213 ==

== ENCOUNTER → 2022-02-14 07:46 | Day surgery (SDC) | payer MEDICARE, MEDICAID, SELFPAY ==
[2022-02-14 08:00] VITALS: BP 136/78; PULSE 80; RESP 18; TEMP 36.3; O2SAT 95
[2022-02-14 08:30] LABS: Basophils % 0.5 %; Eosinophils # 0.1 10^3/uL (0.0-0.8); Eosinophils % 1.9 %; Hemoglobin 12.3 g/dL (11.7-16.6); Lymphocytes # 1.6 10^3/uL (0.8-4.8); Lymphocytes % 22.2 %; Mean Corpuscular HGB Conc 34.2 g/dL (30.0-36.0); Mean Corpuscular Hemoglobin 29.6 pg (28.0-34.0); Mean Corpuscular Volume 86.5 fl (80-94); Mean Platelet Volume 9.8 fL (7.4-10.4); Monocytes # 0.8 10^3/uL (0.2-0.9); Monocytes % 10.5 %; Neutrophils # 4.71 10^3/uL (1.8-7.7); Neutrophils % 64.5 %; Nucleated Red Blood Cells % 0 %; Platelet Count 340 10^3/cmm (130-400); Red Blood Count 4.16 10^6/uL (4.1-5.3); Red Cell Distribution Width 14.2 % (12.1-15.1); White Blood Count 7.3 10^3/uL (4.0-10.0)
[2022-02-14 08:40] LABS: INR 0.99 (0.8-1.2)
[2022-02-14 09:01] LABS: Alanine Aminotransferase 10 U/L (0-41); Albumin Level 3.6 g/dL (3.5-5.2); Alkaline Phosphatase 108 U/L (40-130); Anion Gap 16.1 (5-19); Aspartate Amino Transferase 13 U/L (0-40); Blood Urea Nitrogen 45 mg/dL (6-20); Carbon Dioxide 31 mmol/L (22-29); Chloride 87 mmol/L (98-107); Globulin 3.2 g/dL (1.3-4.6); Glomerular Filtration Rate 15.8 mL/min (90-130); Glucose 90 mg/dL (65-115); Osmolality Calculated 283 mOsm/kg (285-295); Potassium 3.1 mmol/L (3.5-5.1); Sodium 131 mmol/L (136-145); Total Bilirubin 0.5 mg/dL (0.15-1.2); Total Protein 6.8 g/dL (6.6-8.7)
[2022-02-14 10:11] LABS: Hepatitis A Antibody IgM Non-Reactive (Nonreactive); Hepatitis B Core IgM Non-Reactive (Nonreactive); Hepatitis B Surface Antigen Non-Reactive (Nonreactive); Hepatitis C Virus Antibody Non-Reactive (Nonreactive)
== END ==
PROVIDERS: PCP Internal Medicine; Visit Provider Internal Medicine
DX: R17 Unspecified jaundice (principal)
CPT/HCPCS: 36591; 80053; 80074; 85025; 85610

== ENCOUNTER → 2022-02-26 10:03 | Day surgery (SDC) | payer MEDICARE, MEDICAID, SELFPAY ==
[2022-02-26 10:14] VITALS: BP 143/69; PULSE 87; RESP 18; TEMP 36.7; O2SAT 93
[2022-02-26 10:43] LABS: Basophils # 0.1 10^3/uL (0.0-0.1); Basophils % 0.8 %; Eosinophils # 0.2 10^3/uL (0.0-0.8); Eosinophils % 1.8 %; Hematocrit 36.4 % (42.0-52.0); Lymphocytes # 1.8 10^3/uL (0.8-4.8); Lymphocytes % 20.7 %; Mean Corpuscular Hemoglobin 29.1 pg (28.0-34.0); Mean Corpuscular Volume 88.1 fl (80-94); Mean Platelet Volume 9.1 fL (7.4-10.4); Monocytes # 0.7 10^3/uL (0.2-0.9); Monocytes % 7.5 %; Neutrophils % 68.5 %; Nucleated Red Blood Cells % 0 %; Platelet Count 314 10^3/cmm (130-400); Red Blood Count 4.13 10^6/uL (4.1-5.3); Red Cell Distribution Width 14.8 % (12.1-15.1); White Blood Count 8.8 10^3/uL (4.0-10.0)
[2022-02-26 10:59] LABS: Creatinine Urine, Random 44 mg/dL (39-259)
[2022-02-26 11:08] LABS: Calcium 7.7 mg/dL (8.5-10.5)
[2022-02-26 11:11] LABS: Microalbum Creatinine Ratio Ur 1545 mg/dL (0-20); Microalbumin Random Urine 68 ug/dL (0-20)
[2022-02-26 11:27] LABS: 25 Hydroxy Vitamin D 25 ng/mL (30-100); Albumin Level 3.3 g/dL (3.5-5.2); Anion Gap 15.3 (5-19); Blood Urea Nitrogen 50 mg/dL (6-20); Calcium 7.7 mg/dL (8.5-10.5); Carbon Dioxide 30 mmol/L (22-29); Chloride 92 mmol/L (98-107); Glomerular Filtration Rate 18.4 mL/min (90-130); Glucose 161 mg/dL (65-115); Phosphorus 2.9 mg/dL (2.5-4.5); Potassium 3.3 mmol/L (3.5-5.1); Sodium 134 mmol/L (136-145)
== END ==
PROVIDERS: PCP Internal Medicine; Referring Provider Registered Nurse; Visit Provider Surgery
DX: N18.4 Chronic kidney disease, stage 4 (severe) (principal)
CPT/HCPCS: 36415; 36591; 80069; 82044; 82306; 82310; 83970; 85025

== ENCOUNTER → 2022-03-26 08:00 | Day surgery (SDC) | payer MEDICARE, MEDICAID, SELFPAY ==
[2022-03-26 08:08] VITALS: BP 144/60; PULSE 83; RESP 18; TEMP 35.8; O2SAT 93
== END ==
PROVIDERS: PCP Internal Medicine; Visit Provider Registered Nurse
DX: N18.4 Chronic kidney disease, stage 4 (severe) (principal)
CPT/HCPCS: 96523

== ENCOUNTER → 2022-04-25 09:39 | Day surgery (SDC) | payer MEDICARE, MEDICAID, SELFPAY ==
[2022-04-25 09:50] VITALS: BP 162/76; PULSE 94; RESP 18; TEMP 36.3; O2SAT 93
[2022-04-25 10:08] LABS: Basophils # 0.1 10^3/uL (0.0-0.1); Basophils % 0.9 %; Eosinophils # 0.2 10^3/uL (0.0-0.8); Eosinophils % 2.2 %; Hemoglobin 12.4 g/dL (11.7-16.6); Lymphocytes # 1.4 10^3/uL (0.8-4.8); Lymphocytes % 15.8 %; Mean Corpuscular HGB Conc 33.5 g/dL (30.0-36.0); Mean Corpuscular Hemoglobin 30.3 pg (28.0-34.0); Mean Corpuscular Volume 90.5 fl (80-94); Mean Platelet Volume 9.8 fL (7.4-10.4); Monocytes # 0.7 10^3/uL (0.2-0.9); Monocytes % 7.9 %; Neutrophils # 6.66 10^3/uL (1.8-7.7); Neutrophils % 72.8 %; Nucleated Red Blood Cells % 0 %; Platelet Count 315 10^3/cmm (130-400); Red Blood Count 4.09 10^6/uL (4.1-5.3); Red Cell Distribution Width 15.2 % (12.1-15.1); White Blood Count 9.1 10^3/uL (4.0-10.0)
[2022-04-25 10:25] LABS: Estmated Average Glucose 180; Hemoglobin A1C 7.9 % (4.0-6.0)
[2022-04-25 10:30] LABS: Anion Gap 14.7 (5-19); Blood Urea Nitrogen 46 mg/dL (6-20); Carbon Dioxide 31 mmol/L (22-29); Chloride 92 mmol/L (98-107); Glomerular Filtration Rate 17.3 mL/min (90-130); Glucose 300 mg/dL (65-115); Osmolality Calculated 301 mOsm/kg (285-295); Potassium 3.7 mmol/L (3.5-5.1); Sodium 134 mmol/L (136-145)
[2022-04-25 10:35] LABS: Calcium 8.9 mg/dL (8.5-10.5)
== END ==
PROVIDERS: PCP Internal Medicine; Visit Provider Registered Nurse
DX: Z95.828 Presence of other vascular implants and grafts (principal); N18.9 Chronic kidney disease, unspecified; E11.22 Type 2 diabetes mellitus with diabetic chronic kidney disease
CPT/HCPCS: 36591; 80048; 83036; 85025

== ENCOUNTER 2022-05-06 15:17 | Inpatient (IN) | payer MEDICARE, MEDICAID, SELFPAY ==
[2022-05-06] VITALS (9 sets, daily range): BP systolic 103–191; BP diastolic 55–119; PULSE 64–98; RESP 15–22; TEMP 36–36.5; O2SAT 91–99
--- NOTE | 2022-05-06 15:31 | ECG_ITS ---
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 Measurements Intervals [place] Rate: 86 P: 34 CO: 187 QRS: -15 QRSD: 114 T: 36 QT: 337 QTc: 405 Interpretive Statements SINUS RHYTHM POSSIBLE LEFT ATRIAL ENLARGEMENT [-0.1mV P-WAVE IN V1/V2] LEFT VENTRICULAR HYPERTROPHY AND ST-T CHANGE [VOLTAGE CRITERIA PLUS ST/T ABNORMALITY] POSSIBLE INFERIOR MYOCARDIAL INFARCTION , PROBABLY OLD [30 ms Q WAVE IN II/aVF] ANTEROLATERAL MYOCARDIAL INFARCTION , OF INDETERMINATE AGE [40+ ms Q WAVE IN I/aVL/V3-V6] Compared to ECG 01/24/2022 07:10:47 Left ventricular hypertrophy now present ST (T wave) deviation now present Myocardial infarct finding still present Electronically Signed On 05-07-2022 6:19:39 DRYING TUMBLER OPERATOR by Garrison Mckinney M.D. [id number]
--- NOTE | 2022-05-06 15:31 | XRR_ITS ---
PROCEDURE INFORMATION: Exam: XR Chest Exam date and time: 05/06/2022 3:41 PM Age: 51 years old Clinical indication: Shortness of breath; Additional info: Weakness TECHNIQUE: Imaging protocol: Radiologic exam of the chest. Views: 1 view. COMPARISON: CR XR chest 1V portable [id number] 09/30/2021 4:50 PM FINDINGS: Tubes, catheters and devices: Left-sided infusion port. Lungs: Atelectasis versus fibrosis at the lung bases. No consolidative pulmonary infiltrate noted. Pleural spaces: No pleural effusion. No pneumothorax. Heart/Mediastinum: No cardiomegaly. Bones/joints: Median sternotomy noted. XR/XR chest 1V portable [id number] IMPRESSION: 1. Atelectasis versus fibrosis at the lung bases. No consolidative pulmonary infiltrate noted. 2. There is no interval change from the prior examination.
--- NOTE | 2022-05-06 15:34 | XRR_ITS ---
PROCEDURE INFORMATION: Exam: XR Right Knee Exam date and time: 05/06/2022 3:46 PM Age: 51 years old Clinical indication: Injury or trauma; Fall; Blunt trauma; Knee; Right TECHNIQUE: Imaging protocol: Radiologic exam of the Right knee. Views: 3 views. COMPARISON: CR XR knee RT 3V* [id number] 02/09/2021 5:11 PM FINDINGS: Bones/joints: No fracture or other acute osseous abnormality. No joint narrowing, dislocation, or effusion noted. Soft tissues: The soft tissues are unremarkable as demonstrated. Vasculature: There are atherosclerotic calcifications demonstrated. XR/XR knee RT 3V* [id number] IMPRESSION: 1. No acute abnormality demonstrated. 2. There is no interval change from the prior examination.
--- NOTE | 2022-05-06 15:35 | W.ED.SYNCOPE ---
HPI - Syncope General: Chief Complaint: Syncope Stated Complaint: fall, weak Time Seen by Provider: 05/06/22 15:30 Source: patient Mode of arrival: ambulatory Limitations: no limitations History of Present Illness: 51-year-old male states he had 2 syncopal events over the last 2 days he states that he had fell both times knees hurt his right knee from the fall he states has had some mild chest pains over the last 2 days he denies any pain currently denies any diaphoresis states that he has some vagal episodes at times. He is well-appearing here. Associated symptoms: Reports chest pain; Deny abdominal pain, fever(s), headache(s) or nausea Review of Systems Const: Denies: fever(s), chills, body aches or change in appetite Eyes: Denies: blurry vision or eye discomfort ENMT: Denies: throat pain or dental pain Card: Reports: chest pain and syncope Resp: Denies: dyspnea GI: Denies: abdominal pain, nausea, vomiting or diarrhea : Denies: dysuria Musc: Reports: extremity pain Skin/Breast: Denies: rash Neuro: Denies: headache(s) Psych: Denies: depression [place]wey/Lymph: Denies: easy bruising All/Imm: Denies: urticaria PFSH ED PFSH: Medical History Acute on chronic congestive heart failure Anemia Atherosclerotic heart disease of [place] coronary artery with other forms of angina pectoris hx of CAD with prior stenting of proximal LAD, LCx, RCA Chronic anticoagulation Eliquis Chronic kidney disease -baseline Cr appears to be around 1.5 Chronic systolic heart failure EF=47%, diffuse LV hypokinesis, mildly increased LA size Depression Diabetes A1c-7.6 (08/2019) Foot drop, left GERD (gastroesophageal reflux disease) H/O acute myocardial infarction H/O deep venous thrombosis developed compartment syndrome Hyperlipidemia Hypertension Hypothyroidism Ischemic cardiomyopathy Major depressive disorder, recurrent severe without psychotic features Osteoarthritis of spine Surgical History H/O colonoscopy (11/14/20) 08/2015 H/O esophagogastroduodenoscopy (11/14/20) 08/2015 H/O removal of testicle left H/O skin graft H/O vasectomy History of appendectomy 1995 History of coronary artery stent placement 5x History of excision of mass 06/08/2019: Subcutaneous mass on back History of inguinal hernia repair, bilateral 1999 History of removal of Port-a-Cath Hx of cholecystectomy Peritoneal dialysis catheter in situ (06/15/21) Port-A-Cath in place Family History Grandfather Cancer skin cancer Parkinson disease Brother Hypertension Father Heart disease Mother Hypertension Stroke Aneurysm Grandmother Aneurysm Other Crohn disease Denies family history of Anesthesia complication Bleeding disorder Social History Smoking and tobacco status: never smoked Second hand smoke exposure: No Smoking risk assessment/counseling performed?: No Alcohol intake: former Year of sobriety/quit date alcohol: 2015 Former alcohol use details: Only holidays Desire information about alcohol rehabilitation?: No Counseling given: No Desire information about substance/drug rehabilitation?: No Counseling given: No Lives independently: Yes Household members: significant other Marital status: Single Current occupational status: disabled History of recent travel: No Physical Exam Const: COMMON NORMALS: no acute distress, patient oriented x3 and healthy appearing HENMT: COMMON NORMALS: normocephalic and atraumatic HEAD & SCALP: normocephalic and atraumatic Eye: COMMON NORMALS: Equal, round and reactive pupils present and EOMs intact bilaterally PUPIL: Yes Equal, round and reactive pupils present Neck/C-Spine: COMMON NORMALS: full ROM and supple Chest: COMMONS NORMALS: normal inspection of the chest and normal palpation of entire chest wall Resp: COMMON NORMALS: normal respiratory effort, No retractions, No use of accessory muscles and clear to auscultation bilaterally AUSCULTATION: clear to auscultation bilaterally Cardio: COMMON NORMALS: regular rate, regular rhythm and No murmurs present (Cardio) RATE: regular rate RHYTHM: regular rhythm GI: COMMON NORMALS: Normal to inspection, nondistended, normoactive bowel sounds present, Soft to palpation, non-tender and no masses PALPATION: Yes Soft to palpation Extremity: COMMON NORMALS: normal to inspection and full ROM Neuro: COMMON NORMALS: patient oriented x3, moves all extremities and no focal motor deficits Psych: COMMON NORMALS: mental status grossly normal, Normal thought process present and cooperative THOUGHT PROCESS: Normal thought process present Skin: COMMON NORMALS: no rashes or lesions noted and no wounds GENERAL SKIN EXAM: no rashes or lesions noted Course Vital Signs: Vital signs: Vital Signs Temperature 96.8 F L 05/06/22 15:24 Pulse Rate 91 05/06/22 16:05 Respiratory Rate 20 H 05/06/22 16:55 Blood Pressure 145/119 05/06/22 16:05 Pulse Oximetry 91 05/06/22 16:55 Oxygen Delivery Me thod 05/06/22 15:24 MDM - Syncope Medical Decision Making Patient presents here with 2 syncopal events I was originally orthostatic hypotensive here but his blood pressures improved with IV fluids he appears to be dehydrated with hypercalcemia along with acute kidney injury on top of chronic kidney disease I did speak to the hospitalist will admit at this time. Lab Data 05/06/22 16:16 05/06/22 16:16 Radiology Impressions Chest X-Ray 05/06/22 15:31 IMPRESSION: 1. Atelectasis versus fibrosis at the lung bases. No consolidative pulmonary infiltrate noted. 2. There is no interval change from the prior examination. Knee X-Ray 05/06/22 15:34 IMPRESSION: 1. No acute abnormality demonstrated. 2. There is no interval change from the prior examination. Laboratory Results WBC 11.8 10^3/uL (4.0-10.0) H 05/06/22 16:16 RBC 5.03 10^6/uL (4.1-5.3) 05/06/22 16:16 Hgb 15.4 g/dL (11.7-16.6) 05/06/22 16:16 Hct 45.3 % (42.0-52.0) 05/06/22 16:16 MCV 90.1 fl (80-94) 05/06/22 16:16 MCH 30.6 pg (28.0-34.0) 05/06/22 16:16 MCHC 34.0 g/dL (30.0-36.0) 05/06/22 16:16 RDW 14.3 % (12.1-15.1) 05/06/22 16:16 Plt Count 331 10^3/cmm (130-400) 05/06/22 16:16 MPV 10.4 fL (7.4-10.4) 05/06/22 16:16 Neut % (Auto) 68.2 % 05/06/22 16:16 Lymph % (Auto) 19.5 % 05/06/22 16:16 [place] % (Auto) 8.6 % 05/06/22 16:16 Eos % (Auto) 2.3 % 05/06/22 16:16 Baso % (Auto) 0.8 % 05/06/22 16:16 Neut # (Auto) 8.07 10^3/uL (1.8-7.7) H 05/06/22 16:16 Lymph # (Auto) 2.3 10^3/uL (0.8-4.8) 05/06/22 16:16 [place] # (Auto) 1.0 10^3/uL (0.2-0.9) H 05/06/22 16:16 Eos # (Auto) 0.3 10^3/uL (0.0-0.8) 05/06/22 16:16 Baso # (Auto) 0.1 10^3/uL (0.0-0.1) 05/06/22 16:16 Nucleated RBC % (auto) 0 % 05/06/22 16:16 Nucleated RBCs # 0.0 /100WBC 05/06/22 16:16 Sodium 130 mmol/L (136-145) L 05/06/22 16:16 Potassium 3.6 mmol/L (3.5-5.1) 05/06/22 16:16 Chloride 83 mmol/L (98-107) L 05/06/22 16:16 Carbon Dioxide 32 mmol/L (22-29) H 05/06/22 16:16 Anion Gap 18.6 (5-19) 05/06/22 16:16 BUN 64 mg/dL (6-20) H 05/06/22 16:16 Creatinine 5.4 mg/dL (0.7-1.2) H 05/06/22 16:16 GFR Calculation 11.2 mL/min (90-130) L 05/06/22 16:16 Glucose 255 mg/dL (65-115) H 05/06/22 16:16 Calculated Osmolality 297 mOsm/kg (285-295) H 05/06/22 16:16 Lactate 2.4 mmol/L (0.5-2.2) H 05/06/22 16:16 Calcium 13.7 mg/dL (8.5-10.5) H* 05/06/22 16:16 Total Bilirubin 0.6 mg/dL (0.15-1.2) 05/06/22 16:16 AST 16 U/L (0-40) 05/06/22 16:16 ALT 11 U/L (0-41) 05/06/22 16:16 Alkaline Phosphatase 153 U/L (40-130) H 05/06/22 16:16 Troponin T Baseline 79 ng/L (0-15) H 05/06/22 16:16 Total Protein 6.8 g/dL (6.6-8.7) 05/06/22 16:16 Albumin 3.9 g/dL (3.5-5.2) 05/06/22 16:16 Globulin 2.9 g/dL (1.3-4.6) 05/06/22 16:16 Discharge Plan Discharge Patient Disposition: Admitted As Inpatient Clinical Impression: Acute kidney injury superimposed on CKD, Hypercalcemia, Syncope Condition: Stable Prescriptions: No Action mupirocin 2 % ointment 1 applic topical BID 14 Days Qty: 22 2RF multivitamin [Daily Multi-Vitamin] Tablet 1 tab PO QPM Trulicity 0.75 mg/0.5 mL pen injector 0.75 mg SUBCUT Q7D Rx Instructions: ON SAT aspirin 81 mg tablet,delayed release (DR/EC) 81 mg PO DAILY@0600 promethazine 25 mg tablet 25 mg PO Q6H PRN (Reason: Pain) bumetanide 2 mg tablet 4 mg PO TID Eliquis 2.5 mg tablet 2.5 mg PO BID mupirocin 2 % ointment 1 applic topical BID 14 Days Qty: 22 2RF buspirone 5 mg tablet 5 mg PO TID Qty: 90 2RF citalopram 40 mg tablet 40 mg PO DAILY Qty: 30 2RF trazodone 100 mg tablet 400 mg PO BEDTIME PRN (Reason: insomnia) Qty: 120 2RF bupropion HCl [Wellbutrin XL] 300 mg tablet extended release 24 hr 300 mg PO QAM Qty: 30 2RF nitroglycerin [Nitrostat] 0.4 mg tablet, sublingual 0.4 mg SUBLINGUAL Q5M PRN (Reason: Chest Pain) Qty: 25 2RF isosorbide mononitrate 30 mg tablet extended release 24 hr 30 mg PO BID@0600,1800 Qty: 180 3RF atorvastatin 40 mg tablet 40 mg PO QAM Qty: 90 2RF ranolazine [Ranexa] 500 mg tablet extended release 12 hr 500 mg PO BID Qty: 180 3RF insulin lispro [Humalog U-100 Insulin] 100 unit/mL solution See Rx Instructions .ROUTE .COMPLEX Rx Instructions: SLIDING SCALE BID @06,18 amlodipine 5 mg Tablet 5 mg PO DAILY Qty: 0 0RF metoprolol tartrate 50 mg tablet 25 mg PO BID@0600,1800 Qty: 0 0RF docusate sodium [Colace] 100 mg capsule 100 mg PO BID Qty: 30 0RF cyclobenzaprine 10 mg tablet 10 mg PO TID PRN (Reason: MUSCLE SPASMS) levothyroxine 88 mcg tablet 88 mcg PO QAM Tresiba FlexTouch U-200 200 unit/mL (3 mL) insulin pen 38 unit SUBCUT BEDTIME lidocaine 5 % adhesive patch,medicated 1 patch transdermal PRN PRN (Reason: Pain) metolazone 5 mg tablet 5 mg PO Q48H potassium chloride 20 mEq tablet,ER particles/crystals 20 meq PO DIRECTED Rx Instructions: 40 mEq PO Take 2 tabs in morning and afternoon and 1 tab in evening; oxycodone 5 mg tablet 5 mg PO Q4H PRN (Reason: pain) Qty: 10 0RF azithromycin 500 mg tablet See Rx Instructions .ROUTE .COMPLEX Qty: 3 0RF Rx Instructions: For 500 mg dose pack: take 500 mg once daily for 3 days Referrals: Kp Montanez DO [Primary Care Provider] - Coding Level of Care Code ED 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
--- NOTE | 2022-05-06 16:06 | PC.NURSE ---
PT PLACED ON CONTINUOUS NIBP, SPO2, AND CM
[2022-05-06] MEDS: sodium chloride 0.9% 1,000 ML 999 ML IV (16:13)
[2022-05-06 16:24] LABS: Basophils # 0.1 10^3/uL (0.0-0.1); Basophils % 0.8 %; Eosinophils # 0.3 10^3/uL (0.0-0.8); Eosinophils % 2.3 %; Hematocrit 45.3 % (42.0-52.0); Hemoglobin 15.4 g/dL (11.7-16.6); Lymphocytes # 2.3 10^3/uL (0.8-4.8); Lymphocytes % 19.5 %; Mean Corpuscular Hemoglobin 30.6 pg (28.0-34.0); Mean Corpuscular Volume 90.1 fl (80-94); Mean Platelet Volume 10.4 fL (7.4-10.4); Monocytes % 8.6 %; Neutrophils # 8.07 10^3/uL (1.8-7.7); Neutrophils % 68.2 %; Nucleated Red Blood Cells % 0 %; Platelet Count 331 10^3/cmm (130-400); Red Blood Count 5.03 10^6/uL (4.1-5.3); Red Cell Distribution Width 14.3 % (12.1-15.1); White Blood Count 11.8 10^3/uL (4.0-10.0)
[2022-05-06 16:45] LABS: Alanine Aminotransferase 11 U/L (0-41); Albumin Level 3.9 g/dL (3.5-5.2); Alkaline Phosphatase 153 U/L (40-130); Anion Gap 18.6 (5-19); Aspartate Amino Transferase 16 U/L (0-40); Blood Urea Nitrogen 64 mg/dL (6-20); Carbon Dioxide 32 mmol/L (22-29); Chloride 83 mmol/L (98-107); Globulin 2.9 g/dL (1.3-4.6); Glomerular Filtration Rate 11.2 mL/min (90-130); Glucose 255 mg/dL (65-115); Osmolality Calculated 297 mOsm/kg (285-295); Potassium 3.6 mmol/L (3.5-5.1); Sodium 130 mmol/L (136-145); Total Bilirubin 0.6 mg/dL (0.15-1.2); Total Protein 6.8 g/dL (6.6-8.7); Troponin(5th) Baseline 79 ng/L (0-15)
[2022-05-06 16:46] LABS: Lactate (Lactic Acid level) 2.4 mmol/L (0.5-2.2)
[2022-05-06 16:53] LABS: Calcium 13.7 mg/dL (8.5-10.5)
[2022-05-06] MEDS: morphine 4 mg/mL SDV 1 mL IVP (16:55)
--- NOTE | 2022-05-06 17:34 | ECG_ITS ---
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 Measurements Intervals [place] Rate: 82 P: 37 [place]: 196 QRS: -20 QRSD: 117 T: 60 QT: 387 QTc: 453 Interpretive Statements SINUS RHYTHM POSSIBLE LEFT ATRIAL ENLARGEMENT [-0.1mV P-WAVE IN V1/V2] ANTERIOR MYOCARDIAL INFARCTION , OF INDETERMINATE AGE [40+ ms Q WAVE AND/OR ST/T ABNORMALITY IN V3/V4] POSSIBLE INFERIOR MYOCARDIAL INFARCTION , PROBABLY OLD [30 ms Q WAVE IN II/aVF] Compared to ECG 05/06/2022 15:56:48 Left ventricular hypertrophy no longer present ST (T wave) deviation no longer present Myocardial infarct finding still present Electronically Signed On 05-07-2022 6:21:18 ANALYST by Garrison Mckinney M.D. [id number]
--- NOTE | 2022-05-06 17:46 | P.HP_ITS ---
Providers/Chief Complaint Primary Care Provider: Kp Montanez DO Chief Complaint: fall, weak History of Present Illness Rei Queen II is a 51 year old male with a PMH CKD, anticipated to start on PD for which he had PD access made in 01/2022, however has not yet started. Per patient PD not approved until 5 GFR numbers less than 20. He presents now c/o generalized weakness, recurrent episodes of syncope and falls over past 2 weeks. he is also experiencing chest pain both with exertion and at rest. Episodes of syncope happen without warning. He denies any preceding dizziness, nausea vomiting. Endorses skipped beats . In the ER lying BP is 179/92 mmHg, on standing up in the ER was noted to be 70 systolic. No corresposing tachycardia. Denies any recent changes in his medications. H/o URI 2 weeks ago with running nose, cough, sore throat Pertinent diagnostics : CXR : No consolidation. Baseline troponin 79, Ekg sinus rhythm, possible left atrial enlargement. Hypercalcemia, Ca 13.7. Review of Systems General: Reports: 10 or more systems reviewed and unremarkable except in HPI and below Const: Denies: fever(s), chills or body aches Eyes: Denies: change in vision, blurry vision or photophobia ENMT: Reports: hoarseness; Denies: throat pain, enlarged tonsils, odynophagia or nasal congestion Card: Denies: chest pain, palpitations, irregular heart rhythm, edema, swelling of feet/ankles, lightheadedness, pre-syncope, dyspnea on exertion or orthopnea Resp: Denies: dyspnea, productive cough, non-productive cough, wheezing, stridor, pain on inspiration, change in phlegm color, hemoptysis or chest congestion GI: Denies: abdominal pain, nausea, vomiting, hematemesis, coffee ground emesis, dysphagia, heartburn, diarrhea, constipation, GI cramping, change in stool character, hematochezia or melena : Denies: flank pain, dysuria, urinary frequency, urinary urgency, urinary hesitancy or hematuria Musc: Denies: neck pain, back pain, extremity pain, joint swelling, joint warmth or deformity Neuro: Denies: headache(s), numbness in extremities, weakness in extremities, sensory changes, difficulty walking, frequent falls, dizziness, vertigo, behavioral changes, Slurred speech present or seizure-like activity Psych: Denies: anxiety, depression, suicidal ideation or homicidal ideation Endo: Denies: polyuria, polydipsia, tired all the time, cold intolerance or hot flashes Dewey/Lymph: Denies: easy bruising or easy bleeding Medications/Allergies Home Medications Medication Instructions Recorded Confirmed Last Taken Type aspirin 81 mg tablet,delayed 81 mg PO DAILY@0600 06/01/19 05/06/22 05/05/22 History release dulaglutide 0.75 mg/0.5 mL 0.75 mg SUBCUT Q7D 06/01/19 05/06/22 05/05/22 History subcutaneous pen injector (Trulicity) multivitamin (Daily Multi-Vitamin 1 tab PO QPM 06/01/19 05/06/22 05/05/22 History tablet) cyclobenzaprine 10 mg tablet 10 mg PO TID PRN MUSCLE SPASMS 01/07/20 05/06/22 04/25/22 History insulin lispro 100 unit/mL See Rx Instructions .Route 09/25/20 05/06/22 04/25/22 History subcutaneous solution (Humalog .COMPLEX see pharmacy comments U-100 Insulin) nitroglycerin 0.4 mg sublingual 0.4 mg sublingual Q5M PRN Chest 10/10/20 05/06/22 04/25/22 Rx tablet (Nitrostat) Pain #25 tabs levothyroxine 88 mcg tablet 88 mcg PO QAM 02/09/21 05/06/22 05/05/22 History promethazine 25 mg tablet 25 mg PO Q6H PRN Pain 02/22/21 05/06/22 04/25/22 History amlodipine 5 mg tablet 5 mg PO DAILY #0 tabs 04/17/21 05/06/22 04/25/22 Rx metoprolol tartrate 50 mg tablet 25 mg PO BID@0600,1800 #0 tabs 04/17/21 05/06/22 04/25/22 Rx lidocaine 5 % topical patch 1 patch transdermal PRN PRN Pain 05/12/21 05/06/22 04/25/22 History isosorbide mononitrate 30 mg 30 mg PO BID@0600,1800 #180 tabs 05/22/21 05/06/22 04/25/22 Rx tablet,extended release 24 hr bumetanide 2 mg tablet 4 mg PO TID 06/13/21 05/06/22 05/05/22 History metolazone 5 mg tablet 5 mg PO Q48H 06/13/21 05/06/22 05/05/22 History potassium chloride 20 mEq 20 meq PO DIRECTED 06/13/21 05/06/22 04/25/22 History tablet,extended release(part/cryst) docusate sodium 100 mg capsule 100 mg PO BID #30 caps 06/15/21 05/06/22 04/25/22 Rx (Colace) mupirocin 2 % topical ointment 1 applic topical BID 2 weeks #22 06/28/21 05/06/22 04/25/22 Rx grams apixaban 2.5 mg tablet (Eliquis) 2.5 mg PO BID 09/14/21 05/06/22 05/05/22 History insulin degludec 200 unit/mL (3 38 unit SUBCUT BEDTIME 12/11/21 05/06/22 05/05/22 History mL) subcutaneous pen (Tresiba FlexTouch U-200 insulin) atorvastatin 40 mg tablet 40 mg PO QAM #90 tabs 12/19/21 05/06/22 05/05/22 Rx mupirocin 2 % topical ointment 1 applic topical BID 2 weeks #22 12/25/21 05/06/22 04/25/22 Rx grams ranolazine 500 mg tablet,extended 500 mg PO BID #180 tabs 01/02/22 05/06/22 05/05/22 Rx release,12 hr (Ranexa) oxycodone 5 mg tablet 5 mg PO Q4H PRN pain #10 tabs 01/24/22 05/06/22 04/25/22 Rx bupropion HCl 300 mg 24 hr tablet, 300 mg PO QAM #30 tabs 03/01/22 05/06/22 05/05/22 Rx extended release (Wellbutrin XL) buspirone 5 mg tablet 5 mg PO TID #90 tabs 03/01/22 05/06/22 05/05/22 Rx citalopram 40 mg tablet 40 mg PO DAILY #30 tabs 03/01/22 05/06/22 04/25/22 Rx trazodone 100 mg tablet 400 mg PO BEDTIME PRN insomnia 03/01/22 05/06/22 04/25/22 Rx #120 tabs calcitriol 0.25 mcg capsule 0.25 mcg PO TID 05/06/22 05/06/22 05/05/22 History Allergies Allergy/AdvReac Type Severity Reaction Status Date / Time Iodinated Contrast Media Allergy Severe ALGY-Difficulty Verified 04/25/22 09:08 Breathing iodine Allergy Severe ALGY-Difficulty Verified 04/25/22 09:08 Breathing metoclopramide [From Reglan] Allergy Severe ALGY-Difficulty Verified 04/25/22 09:08 Breathing nalbuphine [From Nubain] Allergy Severe ADR-Diarrhe Verified 04/25/22 09:08 a naproxen [From Naprosyn] Allergy Severe ADR-Vomitin Verified 04/25/22 09:08 g Sulfa (Sulfonamide Allergy Severe ALGY-Difficulty Verified 04/25/22 09:08 Antibiotics) Breathing ketorolac Allergy Intermediate ADR-Nausea Verified 04/25/22 09:08 ondansetron [From Zofran] Allergy Intermediate ADR-Abdominal Verified 04/25/22 09:08 Pain prochlorperazine Allergy Intermediate ADR-Irritab Verified 04/25/22 09:08 [From Compazine] le codeine AdvReac Severe ALGY-Anaphy Verified 04/25/22 09:08 laxis haloperidol [From Haldol] AdvReac Intermediate ADR-Irritab Verified 04/25/22 09:08 le PFSH Acute PFSH: Medical History Acute on chronic congestive heart failure Anemia Atherosclerotic heart disease of [place] coronary artery with other forms of angina pectoris hx of CAD with prior stenting of proximal LAD, LCx, RCA Chronic anticoagulation Eliquis Chronic kidney disease -baseline Cr appears to be around 1.5 Chronic systolic heart failure EF=47%, diffuse LV hypokinesis, mildly increased LA size Depression Diabetes A1c-7.6 (08/2019) Foot drop, left GERD (gastroesophageal reflux disease) H/O acute myocardial infarction H/O deep venous thrombosis developed compartment syndrome Hyperlipidemia Hypertension Hypothyroidism Ischemic cardiomyopathy Major depressive disorder, recurrent severe without psychotic features Osteoarthritis of spine Surgical History H/O colonoscopy (11/14/20) 08/2015 H/O esophagogastroduodenoscopy (11/14/20) 08/2015 H/O removal of testicle left H/O skin graft H/O vasectomy History of appendectomy 1995 History of coronary artery stent placement 5x History of excision of mass 06/08/2019: Subcutaneous mass on back History of inguinal hernia repair, bilateral 1999 History of removal of Port-a-Cath Hx of cholecystectomy Peritoneal dialysis catheter in situ (06/15/21) Port-A-Cath in place Family History Grandfather Cancer skin cancer Parkinson disease Brother Hypertension Father Heart disease Mother Hypertension Stroke Aneurysm Grandmother Aneurysm Other Crohn disease Denies family history of Anesthesia complication Bleeding disorder Social History Smoking and tobacco status: never smoked Second hand smoke exposure: No Smoking risk assessment/counseling performed?: No Alcohol intake: former Year of sobriety/quit date alcohol: 2015 Former alcohol use details: Only holidays Desire information about alcohol rehabilitation?: No Counseling given: No Desire information about substance/drug rehabilitation?: No Counseling given: No Lives independently: Yes Household members: significant other Marital status: Single Current occupational status: disabled History of recent travel: No Vitals/I&O/Wt Last Vital Signs Temp 96.8 F L 05/06/22 15:24 Pulse 80 05/06/22 17:00 Resp 19 H 05/06/22 17:00 BP 172/96 05/06/22 17:00 Pulse Ox 99 05/06/22 17:00 O2 Del Method 05/06/22 15:24 Weight last 48 hrs Weight 101.605 kg Physical Exam Narrative: General: No acute distress, AO x3, appears older than age, chrornically ill appearing HEENT: PERRLA, pupils bilaterally equal and reactive, pallors not present Chest: Normal vesicular breath sounds, no added sounds, equal good air entry bilaterally CVS: S1-S2 regular, no murmurs, no tachycardia, no gallops, no rubs Abdomen: Soft, nontender, no organomegaly, bowel sounds present Neuro: No focal deficits, no facial deformity, AO x3, power 5/5 in all limbs Extremities: no edema, clubbing or cyanosis Data 05/06/22 16:16 05/06/22 16:16 A&P Assessment and plan (1) Hypercalcemia: (2) Syncope: (3) Orthostatic hypotension: (4) Elevated troponin: (5) Chronic systolic heart failure: (6) Acute kidney injury superimposed on CKD: Plan Presenting today with generalized fatigue, recurrent syncopal episodes over last 2 weeks. Abnormal labs as noted above in HPI For Jesus on CKD, hypercalcemia, poor po intake and orthostatsic hypotension: Start gentle iv hydration NS @ 50 cc/hr Hold diuretics clinically appears to be dehydrated Monitor orthostatics Hold supplemental calcium Hold imdur and ranexa renal consult Telemetry monitoring continuos Monitor for bradycardia and arrhythmias Baseline trop 79, trend at 2 hr and 6 hrs to evalaute for NSTEMI. No st -t wave changes acutely. 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 Coding Level of Care Code Acute Geophysical Drafter for Aaron Irene Diagnoses Hypercalcemia E83.52 Syncope R55 Orthostatic hypotension I95.1 Elevated troponin R77.8 Chronic systolic heart failure I50.22 Acute kidney injury superimposed on CKD N17.9; N18.9
[2022-05-06] MEDS: promethazine 25 mg Tablet PO (18:27)
[2022-05-06] MEDS: docusate sodium 100 mg Capsule PO (18:27)
[2022-05-06] MEDS: metoprolol tartrate 50 mg Tablet 25 MG PO (18:52)
[2022-05-06 19:06] LABS: Troponin 5 2HR 68.68 ng/L (0-15)
--- NOTE | 2022-05-06 19:22 | PC.NURSE ---
Patient arrived on med/surg at this time.
--- NOTE | 2022-05-06 19:36 | PM.CONSULT ---
Providers/Reason For Consult Consulting Physician/Specialty*: Raoul Villarreal MD Reason for Consult*: JESUS on CKD and hypercalcemia Requesting Physician: luba Lamar Attending Physician: Nancy Watson MD Primary Care Provider: Kp Montanez DO History of Present Illness History of Present Illness Rei Queen II is a 51 year old male w/ CKD stage 4. Has PD catheter not yet externalized. Pt here w/ wekaness, syncope/ falls, recent URI. Pt is weak, nausea, and c/o abd and bone pains. He has h/o HTN, hypothyroidism, secondary hyperparathyroidism, and DM. In er found to have JESUS, hyponatremia, met alkalosis, and hypercalcmeia. he was started on ivf and admitted to the hospital. renal is called to consult. Review of Systems Narrative: weak, nausea, falling, poor appetite, and pain and distention. no sob or diarrhea. no hearong or seeing issues, no palomo Medications/Allergies Home Medications Medication Instructions Recorded Confirmed Last Taken Type aspirin 81 mg tablet,delayed 81 mg PO DAILY@0600 06/01/19 05/06/22 05/05/22 History release dulaglutide 0.75 mg/0.5 mL 0.75 mg SUBCUT Q7D 06/01/19 05/06/22 05/05/22 History subcutaneous pen injector (Trulicity) multivitamin (Daily Multi-Vitamin 1 tab PO QPM 06/01/19 05/06/22 05/05/22 History tablet) cyclobenzaprine 10 mg tablet 10 mg PO TID PRN MUSCLE SPASMS 01/07/20 05/06/22 04/25/22 History insulin lispro 100 unit/mL See Rx Instructions .Route 09/25/20 05/06/22 04/25/22 History subcutaneous solution (Humalog .COMPLEX see pharmacy comments U-100 Insulin) nitroglycerin 0.4 mg sublingual 0.4 mg sublingual Q5M PRN Chest 10/10/20 05/06/22 04/25/22 Rx tablet (Nitrostat) Pain #25 tabs levothyroxine 88 mcg tablet 88 mcg PO QAM 02/09/21 05/06/22 05/05/22 History promethazine 25 mg tablet 25 mg PO Q6H PRN Pain 02/22/21 05/06/22 04/25/22 History amlodipine 5 mg tablet 5 mg PO DAILY #0 tabs 04/17/21 05/06/22 04/25/22 Rx metoprolol tartrate 50 mg tablet 25 mg PO BID@0600,1800 #0 tabs 04/17/21 05/06/22 04/25/22 Rx lidocaine 5 % topical patch 1 patch transdermal PRN PRN Pain 05/12/21 05/06/22 04/25/22 History isosorbide mononitrate 30 mg 30 mg PO BID@0600,1800 #180 tabs 05/22/21 05/06/22 04/25/22 Rx tablet,extended release 24 hr bumetanide 2 mg tablet 4 mg PO TID 06/13/21 05/06/22 05/05/22 History metolazone 5 mg tablet 5 mg PO Q48H 06/13/21 05/06/22 05/05/22 History potassium chloride 20 mEq 20 meq PO DIRECTED 06/13/21 05/06/22 04/25/22 History tablet,extended release(part/cryst) docusate sodium 100 mg capsule 100 mg PO BID #30 caps 06/15/21 05/06/22 04/25/22 Rx (Colace) mupirocin 2 % topical ointment 1 applic topical BID 2 weeks #22 06/28/21 05/06/22 04/25/22 Rx grams apixaban 2.5 mg tablet (Eliquis) 2.5 mg PO BID 09/14/21 05/06/22 05/05/22 History insulin degludec 200 unit/mL (3 38 unit SUBCUT BEDTIME 12/11/21 05/06/22 05/05/22 History mL) subcutaneous pen (Tresiba FlexTouch U-200 insulin) atorvastatin 40 mg tablet 40 mg PO QAM #90 tabs 12/19/21 05/06/22 05/05/22 Rx mupirocin 2 % topical ointment 1 applic topical BID 2 weeks #22 12/25/21 05/06/22 04/25/22 Rx grams ranolazine 500 mg tablet,extended 500 mg PO BID #180 tabs 01/02/22 05/06/22 05/05/22 Rx release,12 hr (Ranexa) oxycodone 5 mg tablet 5 mg PO Q4H PRN pain #10 tabs 01/24/22 05/06/22 04/25/22 Rx bupropion HCl 300 mg 24 hr tablet, 300 mg PO QAM #30 tabs 03/01/22 05/06/22 05/05/22 Rx extended release (Wellbutrin XL) buspirone 5 mg tablet 5 mg PO TID #90 tabs 03/01/22 05/06/22 05/05/22 Rx citalopram 40 mg tablet 40 mg PO DAILY #30 tabs 03/01/22 05/06/22 04/25/22 Rx trazodone 100 mg tablet 400 mg PO BEDTIME PRN insomnia 03/01/22 05/06/22 04/25/22 Rx #120 tabs calcitriol 0.25 mcg capsule 0.25 mcg PO TID 05/06/22 05/06/22 05/05/22 History Allergies Allergy/AdvReac Type Severity Reaction Status Date / Time Iodinated Contrast Media Allergy Severe ALGY-Difficulty Verified 04/25/22 09:08 Breathing iodine Allergy Severe ALGY-Difficulty Verified 04/25/22 09:08 Breathing metoclopramide [From Reglan] Allergy Severe ALGY-Difficulty Verified 04/25/22 09:08 Breathing nalbuphine [From Nubain] Allergy Severe ADR-Diarrhe Verified 04/25/22 09:08 a naproxen [From Naprosyn] Allergy Severe ADR-Vomitin Verified 04/25/22 09:08 g Sulfa (Sulfonamide Allergy Severe ALGY-Difficulty Verified 04/25/22 09:08 Antibiotics) Breathing ketorolac Allergy Intermediate ADR-Nausea Verified 04/25/22 09:08 ondansetron [From Zofran] Allergy Intermediate ADR-Abdominal Verified 04/25/22 09:08 Pain prochlorperazine Allergy Intermediate ADR-Irritab Verified 04/25/22 09:08 [From Compazine] le codeine AdvReac Severe ALGY-Anaphy Verified 04/25/22 09:08 laxis haloperidol [From Haldol] AdvReac Intermediate ADR-Irritab Verified 04/25/22 09:08 le Current Medications Generic Name Dose Route Start Last Admin Trade Name Freq PRN Reason Stop Dose Admin Docusate Sodium 100 mg 05/06/22 18:00 05/06/22 18:27 Docusate Sodium 100 Mg Capsule PO 100 mg BID RANDY Administration Metoprolol Tartrate 25 mg 05/06/22 18:00 05/06/22 18:52 Metoprolol Tartrate 50 Mg Tablet PO 25 mg BID@0600,1800 RANDY Administration Promethazine HCl 25 mg 05/06/22 17:39 05/06/22 18:27 Promethazine 25 Mg Tablet PO 25 mg Q6H PRN Administration Pain PFSH Acute PFSH: Medical History Acute on chronic congestive heart failure Anemia Atherosclerotic heart disease of [place] coronary artery with other forms of angina pectoris hx of CAD with prior stenting of proximal LAD, LCx, RCA Chronic anticoagulation Eliquis Chronic kidney disease -baseline Cr appears to be around 1.5 Chronic systolic heart failure EF=47%, diffuse LV hypokinesis, mildly increased LA size Depression Diabetes A1c-7.6 (08/2019) Foot drop, left GERD (gastroesophageal reflux disease) H/O acute myocardial infarction H/O deep venous thrombosis developed compartment syndrome Hyperlipidemia Hypertension Hypothyroidism Ischemic cardiomyopathy Major depressive disorder, recurrent severe without psychotic features Osteoarthritis of spine Surgical History H/O colonoscopy (11/14/20) 08/2015 H/O esophagogastroduodenoscopy (11/14/20) 08/2015 H/O removal of testicle left H/O skin graft H/O vasectomy History of appendectomy 1995 History of coronary artery stent placement 5x History of excision of mass 06/08/2019: Subcutaneous mass on back History of inguinal hernia repair, bilateral 1999 History of removal of Port-a-Cath Hx of cholecystectomy Peritoneal dialysis catheter in situ (06/15/21) Port-A-Cath in place Family History Grandfather Cancer skin cancer Parkinson disease Brother Hypertension Father Heart disease Mother Hypertension Stroke Aneurysm Grandmother Aneurysm Other Crohn disease Denies family history of Anesthesia complication Bleeding disorder Social History Smoking and tobacco status: never smoked Second hand smoke exposure: No Smoking risk assessment/counseling performed?: No Alcohol intake: former Year of sobriety/quit date alcohol: 2016 Former alcohol use details: Only holidays Desire information about alcohol rehabilitation?: No Counseling given: No Desire information about substance/drug rehabilitation?: No Counseling given: No Lives independently: Yes Household members: significant other Marital status: Single Current occupational status: disabled History of recent travel: No Vitals/I&O/Wt Last Vital Signs Temp 96.8 F L 05/06/22 15:24 Pulse 80 05/06/22 18:30 Resp 20 H 05/06/22 18:30 BP 191/113 05/06/22 18:30 Pulse Ox 91 05/06/22 18:30 O2 Del Method 05/06/22 15:24 05/06/22 05/06/22 05/06/22 06:59 14:59 22:59 Intake Total 1000 / 1000 Balance 1000 / 1000 Weight last 48 hrs Weight 101.605 kg Physical Exam Narrative: comfortable in bed, NARD vs noted- bp elevated heent- nc/at, eomi, anicteric neck supple lungs clear heart reg abd soft, nt, distended, + bs, per pt has a left side- internal PD catheter ext no edema neuro- a,a, o x 1- 2, moves all extremities Data 05/06/22 16:16 05/06/22 16:16 A&P Assessment and plan (1) Acute kidney injury superimposed on CKD: 51 yr old man 1. CKD stage 4- from DM,CRS 2. JESUS- recent diuresis. -check ua, ur na, osm, cr, pr -renal us -check ck -monitor w/ ivf 3. hypercalcemia- pt was on high dose calcitriol and metolazone stop- give ivf, lasix, and calcitonin- monitor 4. met alkslosis- from diuretics -lactic acidosis- monitor 5. htn- amlodipine, metoprolol, add hydralazine 6. dm control per medicine 7. hgb 15- likely dry 8. check a urine tox seen and examined w/ RN - telehealth visit informed consent obtained from pt and his time spent >45 minutes Plan see above Consult Attestations Medical Necessity Statement: AMS, Jesus on ckd, hypercalcemia, hyponatremia, met alkalosis and lactic acidosis Time Spent in Patient Care: Greater than 35 minutes Coding Level of Care Code Acute Installation Superintendent for Chg Fwd Diagnoses Acute kidney injury superimposed on CKD N17.9; N18.9
--- NOTE | 2022-05-06 19:51 | USR_ITS ---
PROCEDURE INFORMATION: Exam: US Retroperitoneal; Complete; Kidneys and Bladder Exam date and time: 05/06/2022 8:17 PM Age: 51 years old Clinical indication: Abnormal findings; Abnormal lab test; Abnormal kidney function lab tests; Additional info: Lino TECHNIQUE: Imaging protocol: Real-time ultrasound of the retroperitoneum with image documentation. Complete exam focused on the kidneys and bladder. COMPARISON: US renal BI* [id number] 04/13/2021 7:17 AM FINDINGS: Right kidney: Right kidney measures 11.2 cm in length. Normal renal echotexture. No hydronephrosis. No cyst, mass, or calculus demonstrated. Left kidney: Left kidney measures 11.1 cm in length. Normal renal echotexture. No hydronephrosis. No cyst, mass, or calculus demonstrated. Urinary bladder: Urinary bladder is unremarkable. US/US renal BI* [id number] IMPRESSION: No acute renal abnormality noted. No hydronephrosis.
[2022-05-06] MEDS: hyDRALAzine 10 mg Tablet PO (20:42)
[2022-05-06] MEDS: BuSPIRONE 10 mg Tablet 5 MG PO (20:42)
[2022-05-06] MEDS: FUROsemide 10 mg/mL SDV 4mL 40 MG IVP (20:42)
[2022-05-06] MEDS: calcitonin,salmon 200 unit/mL SDV 2mL 100 UNIT SUBCUT (20:48)
--- NOTE | 2022-05-06 21:16 | PC.NURSE ---
Patient called family member to bring in home med insulin scheduled for tonight.
[2022-05-06 21:20] LABS: Glucose Point of Care 187 mg/dL (70-110)
[2022-05-06] MEDS: oxyCODONE 5 mg IR Tab/Cap PO (22:06)
[2022-05-06] MEDS: NON-FORMULARY MEDICATION (Insulin Degludec [Tresiba Flextouch U-200] 200 unit/mL (3 mL) in 38 EACH SUBCUT (22:35)
[2022-05-06 23:00] LABS: Uric Acid 13.4 mg/dL (3.4-7.0)
[2022-05-06 23:08] LABS: Add Urine Microscopic? YES; Bilirubin Urine Neg (Negative); Blood Urine 2+ (Negative); Glucose Urine UA 1+ (Normal); Ketones Urine Negative (Negative); Leukocyte Esterase Urine Negative (Negative); Nitrate Urine Negative (Negative); Protein Urine 2+ (Negative); Urine Appearance Clear (CLEAR); Urine Color Yellow (Yellow); Urobilinogen Urine Neg (Negative); pH Urine 6 (5-7)
[2022-05-06 23:09] LABS: RBC Urine 0-4 /hpf (0-2); WBC Urine 0-4 /hpf (0-5)
[2022-05-06 23:10] LABS: Add Urine Culture? No
[2022-05-06 23:22] LABS: Creatinine Urine, Random 42 mg/dL (39-259); Potassium, Radom Urine 23 mmol/L; Urine Random Chloride 65 mmol/L; Urine Random Sodium 61 mmol/L
[2022-05-06 23:36] LABS: Microalbum Creatinine Ratio Ur 1095 mg/dL (0-20); Microalbumin Random Urine 46 ug/dL (0-20); Urine Protein Random 75 mg/dL
[2022-05-07] VITALS (12 sets, daily range): BP systolic 79–178; BP diastolic 53–82; PULSE 50–73; RESP 16–19; TEMP 36.3–36.9; O2SAT 90–99
[2022-05-07] MEDS: trazodone 100 mg Tablet PO (00:42)
[2022-05-07] MEDS: sodium chloride 0.9% 1,000 ML 150 ML IV ×2 (02:43→08:46)
[2022-05-07] MEDS: atorvastatin 40 mg Tablet PO (05:34)
[2022-05-07] MEDS: levothyroxine 88 mcg Tablet PO (05:34)
[2022-05-07] MEDS: buPROPion XL (24 HR) 300 mg Tablet PO (05:34)
[2022-05-07] MEDS: aspirin 81 mg EC Tablet PO (05:34)
[2022-05-07] MEDS: metoprolol tartrate 50 mg Tablet 25 MG PO (05:53)
[2022-05-07 05:55] LABS: Basophils # 0.1 10^3/uL (0.0-0.1); Basophils % 0.9 %; Eosinophils # 0.3 10^3/uL (0.0-0.8); Eosinophils % 2.7 %; Hematocrit 39.2 % (42.0-52.0); Hemoglobin 13.6 g/dL (11.7-16.6); Lymphocytes # 2.2 10^3/uL (0.8-4.8); Lymphocytes % 20.2 %; Mean Corpuscular HGB Conc 34.7 g/dL (30.0-36.0); Mean Corpuscular Hemoglobin 31.1 pg (28.0-34.0); Mean Corpuscular Volume 89.7 fl (80-94); Mean Platelet Volume 9.7 fL (7.4-10.4); Monocytes # 0.9 10^3/uL (0.2-0.9); Monocytes % 8.4 %; Neutrophils # 7.26 10^3/uL (1.8-7.7); Neutrophils % 67.5 %; Nucleated Red Blood Cells % 0 %; Platelet Count 274 10^3/cmm (130-400); Red Blood Count 4.37 10^6/uL (4.1-5.3); Red Cell Distribution Width 14.3 % (12.1-15.1); White Blood Count 10.8 10^3/uL (4.0-10.0)
[2022-05-07 06:16] LABS: Glucose Point of Care 166 mg/dL (70-110)
[2022-05-07 06:28] LABS: Calcium 11.6 mg/dL (8.5-10.5)
[2022-05-07 06:31] LABS: Alanine Aminotransferase 9 U/L (0-41); Albumin Level 3.2 g/dL (3.5-5.2); Alkaline Phosphatase 126 U/L (40-130); Anion Gap 13.9 (5-19); Aspartate Amino Transferase 13 U/L (0-40); Blood Urea Nitrogen 59 mg/dL (6-20); Calcium 11.7 mg/dL (8.5-10.5); Carbon Dioxide 30 mmol/L (22-29); Chloride 91 mmol/L (98-107); Glomerular Filtration Rate 13.4 mL/min (90-130); Glucose 158 mg/dL (65-115); Magnesium 1.9 mg/dL (1.7-2.3); Osmolality Calculated 294 mOsm/kg (285-295); Phosphorus 4.2 mg/dL (2.5-4.5); Sodium 132 mmol/L (136-145); Thyroid Stimulating Hormone 2.38 uIU/mL (0.27-4.20); Total Bilirubin 0.5 mg/dL (0.15-1.2); Total Protein 6.2 g/dL (6.6-8.7)
[2022-05-07 06:39] LABS: Hepatitis B Core AB, Total Non-Reactive (Nonreactive); Hepatitis B Surface Antigen Non-Reactive (Nonreactive)
[2022-05-07 06:40] LABS: Hepatitis B Surface AB < 3.5 (11.5-1000)
[2022-05-07] MEDS: promethazine 25 mg Tablet PO (06:40)
--- NOTE | 2022-05-07 06:45 | PM.PN ---
Subjective Subjective: nausea, chest pain. poor appetite, + leg edema. Medications: Reviewed: Yes Medication Review Details: Current Medications Acetaminophen (Acetaminophen 325 Mg Tablet) 650 mg PO Q6H PRN PRN Reason: Mild/Mod Pain Or Temp >/= 101 Amlodipine Besylate (Amlodipine 5 Mg Tablet) 5 mg PO DAILY [facility] [place] [place] Apixaban (Apixaban 5 Mg Tablet) 2.5 mg PO BID [facility] Aspirin (Aspirin 81 Mg Ec Tablet) 81 mg PO DAILY@0600 [facility] Last Admin: 05/07/22 05:34 Dose: 81 mg Atorvastatin Calcium (Atorvastatin 40 Mg Tablet) 40 mg PO QAM [facility] Last Admin: 05/07/22 05:34 Dose: 40 mg Bupropion HCl (Bupropion Xl (24 Hr) 300 Mg Tablet) [facility] [place] Admin: 05/07/22 05:34 Dose: 300 mg Buspirone HCl (Buspirone 10 Mg Tablet) 5 mg PO TID [facility] [place] Last Admin: 05/06/22 20:42 Dose: 5 mg Calcitonin [place] (Calcitonin,[place] 200 Unit/Ml Sdv 2ml) 100 unit SUBCUT BID [facility] [place] Last Admin: 05/06/22 20:48 Dose: 100 unit Citalopram Hydrobromide (Citalopram 20 Mg Tablet) 40 mg PO DAILY [facility] Cyclobenzaprine HCl (Cyclobenzaprine 10 Mg Tablet) 10 mg PO TID PRN PRN Reason: MUSCLE SPASMS Docusate Sodium (Docusate Sodium 100 Mg Capsule) 100 mg PO BID [facility] [place] Last Admin: 05/06/22 18:27 Dose: 100 mg Hydralazine HCl (Hydralazine 10 Mg Tablet) 10 mg PO TID [facility] [place] Last Admin: 05/06/22 20:42 Dose: 10 mg Sodium Chloride (Sodium Chloride 0.9%) 1,000 mls @ 150 mls/hr IV .Q6H40M [facility] [place] Last Admin: 05/07/22 02:43 Dose: 150 mls/hr Isosorbide Mononitrate (Isosorbide Mononitrate Er 30 Mg Tablet) 30 mg PO BID@0600,1800 [facility] Levothyroxine Sodium (Levothyroxine 88 Mcg Tablet) 88 mcg PO QAM [facility] [place] Last Admin: 05/07/22 05:34 Dose: 88 mcg Lidocaine (Lidocaine 5% Patch) 1 patch TRANSDERMA PRN PRN PRN Reason: Pain Metoprolol Tartrate (Metoprolol Tartrate 50 Mg Tablet) 25 mg PO BID@0600,1800 [facility] Last Admin: 05/07/22 05:53 Dose: 25 mg Morphine Sulfate (Morphine 4 Mg/Ml Sdv 1 Ml) 2 mg IVP Q4H PRN PRN Reason: SEVERE PAIN Naloxone HCl (Naloxone 0.4 Mg/Ml Sdv) 0.1 mg IVP Q2M PRN PRN Reason: OPIATERV Non-Formulary Medication (Insulin Degludec [Tresiba Flextouch U-200]) 38 unit SUBCUT BEDTIME [facility] [place] [place] Last Admin: 05/06/22 22:35 Dose: 38 unit Oxycodone HCl (Oxycodone 5 Mg Ir Tab/Cap) 5 mg PO Q4H PRN PRN Reason: pain Last Admin: 05/06/22 22:06 Dose: 5 mg Pantoprazole Sodium (Pantoprazole Dr 40 Mg Tablet) 40 mg PO DAILY [facility] [place] Promethazine HCl (Promethazine 25 Mg Tablet) 25 mg PO Q6H PRN PRN Reason: Pain Last Admin: 05/07/22 06:40 Dose: 25 mg Ranolazine (Ranolazine (12hr) 500 Mg Tablet) 500 mg PO BID [facility] Trazodone HCl (Trazodone 100 Mg Tablet) 400 mg PO BEDTIME PRN PRN Reason: insomnia Vitals/I&O/Wt Last Vital Signs Temp 97.6 F 05/07/22 04:00 Pulse 59 L 05/07/22 05:00 Resp 19 H 05/07/22 04:00 BP 130/73 05/07/22 05:00 Pulse Ox 94 05/07/22 04:00 O2 Del Method 05/06/22 21:18 05/06/22 05/06/22 05/07/22 14:59 22:59 06:59 Intake Total 1000 / 1000 1020 / 2020 Output Total 425 / 425 400 / 825 Balance 575 / 575 620 / 1195 Weight last 48 hrs Weight 101.605 kg Physical Exam Narrative: comfortable in bed, NARD vs noted- bp much improved and normal heent- nc/at, eomi, anicteric neck supple lungs clear heart reg abd soft, nt, distended, + bs, per pt has a left side- internal PD catheter ext no edema neuro- a,a, o x 1- 2, moves all extremities Data 05/07/22 05:45 05/06/22 16:16 A&P Assessment and plan (1) Acute kidney injury superimposed on CKD: 51 yr old man 1. CKD stage 4- from DM,CRS 2. JESUS- recent diuresis. -check ua, ur na, osm, cr, pr -renal us -check ck -monitor w/ ivf 3. hypercalcemia- pt was on high dose calcitriol and metolazone stop- give ivf, lasix, and calcitonin- monitor - await repeat labs 4. met alkalosis- from diuretics -lactic acidosis- monitor 5. htn- bp improved- dec meds- cont amlodipine, metoprolol. will hold hydralazine 6. dm control per medicine 7. hgb 15 decreased to 13.6- he was likely dry 8. check a urine tox seen and examined w/ RN - telehealth visit informed consent obtained from pt and his time spent 30 minutes Plan see above- adjust fluids-based on repeat chemistries Attestations Medical Necessity Statement*: jesus, ckd stage 4, hypercalcemia Time Spent in Patient Care: 16 - 35 minutes (>than 50% of time spent in counselling and/or direct pt care on unit). Coding Level of Care Code Acute School Age Teacher for Aaron Irene Diagnoses Acute kidney injury superimposed on CKD N17.9; N18.9
[2022-05-07 06:54] LABS: Potassium 2.9 mmol/L (3.5-5.1)
[2022-05-07 07:00] LABS: 25 Hydroxy Vitamin D 28 ng/mL (30-100)
[2022-05-07 07:36] LABS: Hepatitis C Virus Antibody Non-Reactive (Nonreactive)
[2022-05-07] MEDS: potassium chloride premix 100 ML 25 MEQ IV (07:41)
[2022-05-07] MEDS: BuSPIRONE 10 mg Tablet 5 MG PO ×3 (08:42→20:52)
[2022-05-07] MEDS: apixaban 5 mg Tablet 2.5 MG PO ×2 (08:42→17:57)
[2022-05-07] MEDS: amlodipine 5 mg Tablet PO (08:42)
[2022-05-07] MEDS: citalopram 20 mg Tablet 40 MG PO (08:42)
[2022-05-07] MEDS: pantoprazole DR 40 mg Tablet PO (08:42)
[2022-05-07] MEDS: FUROsemide 10 mg/mL SDV 4mL 40 MG IVP (08:43)
[2022-05-07] MEDS: calcitonin,salmon 200 unit/mL SDV 2mL 100 UNIT SUBCUT ×2 (08:43→17:57)
[2022-05-07] MEDS: acetaminophen 325 mg Tablet 650 MG PO ×2 (08:44→18:08)
--- NOTE | 2022-05-07 12:16 | PC.CHAP ---
Pastoral Care Encounter/Spiritual Assessment Type of Contact [] Declined garbage worker visit [] Patient/Family/Request visit [] Outpatient visit [] Follow-up visit [] Physician referral [] Code/Alert [x] Routine visit [] Staff referral [] Actively dying [x] Patient sleeping [] Family support [] [] Out of room [] Palliative care [] [] Receiving care in room [] Pre-surgical visit [] Trauma [] Long length of stay [] ICU visit [] Other: Relational/Emotional Strength [] Patient feels connected with others/family/visitors/staff [] Distress [] Loneliness/isolation [] Abandonment Spirituality of Patient [] Person of Shannon [] Attends Moravian of their [place] [] Believes in Prayer [] Reads Bible or Confucianist materials [] There are Spiritual issues to be addressed Set Illustrator Interventions [] Prayer [] Active listening [] Non-anxious presence [] Spiritual/emotional support [] Crisis/trauma care [] Spiritual counseling [] Bereavement support [] Provided bereavement packet [] Provided Bible/devotional materials [] Provided toy/stuffed animal, coloring book to patient or family member [] Provided Communion [] Anointing/[place] [] Salvation [] Completed spiritual assessment [] Other: Impact on Illness or Injury [] Angry [] Fearful [] Anxious [] Often cries [] Exhaustion [] Unable to work [] Unable to attend yazidi [] Unable to walk/stand [] Unable to read [] Unable to drive [] Unable to eat/drink [] Unable to sleep [] Unable to be with family [] Patient intubated [] Other: Summary Time spent with patient
--- NOTE | 2022-05-07 13:05 | PM.PN ---
Subjective Subjective: Seen this morning. Patient appears quite tired and sleepy. He does open his eyes and answer questions appropriately when asked. However states he just has his generalized weakness and is tired. Lab abnormalities noted today. Vitals/I&O/Wt Last Vital Signs Temp 97.3 F L 05/07/22 12:00 Pulse 65 05/07/22 12:00 Resp 17 05/07/22 12:00 BP 178/74 05/07/22 12:00 Pulse Ox 99 05/07/22 12:00 O2 Del Method 05/07/22 07:53 05/06/22 05/07/22 05/07/22 22:59 06:59 14:59 Intake Total 1000 / 1000 1020 / 2019 1007.5 / 1007.5 Output Total 425 / 425 400 / 825 1000 / 1000 Balance 575 / 575 620 / 1195 7.5 / 7.5 Weight last 48 hrs Weight 101.605 kg Physical Exam Narrative: General: No acute distress, AO x3, appears older than age, chrornically ill appearing. Appears sleepy and weak. HEENT: EOMI. Chest: Clear to auscultation bilaterally no wheezes or rhonchi present. CVS: S1-S2 regular, no tachycardia, no gallops, no rubs Abdomen: Soft, nontender, bowel sounds present Neuro: Moves all 4 extremities. Extremities: no edema, clubbing or cyanosis Data 05/07/22 05:45 05/07/22 05:45 A&P Assessment and plan (1) Hypercalcemia: (2) Syncope: (3) Orthostatic hypotension: (4) Elevated troponin: (5) Chronic systolic heart failure: (6) Acute kidney injury superimposed on CKD: Plan Presenting today with generalized fatigue, recurrent syncopal episodes over last 2 weeks. Abnormal labs as noted above in HPI For Juan R on CKD, hypercalcemia, poor po intake and orthostatsic hypotension: Continue IV fluids., Continue calcitonin. ? Continue amlodipine metoprolol. Hold hydralazine. ? Urine tox screen pending Monitor orthostatics Hold Imdur and Ranexa. Nephrology following. Appreciate recommendations. Telemetry monitoring continuos Monitor for bradycardia and arrhythmias Baseline trop 79, troponin 68.8. Delta -10. No st -t wave changes acutely at admission. Baseline trop level 40s range Echo shows EF 35%. Echo from March 2021. Repeat echo from this hospitalization is pending at this time. Recent carotid doppler 02/2022: no significant ICA stenosis Respiratory viral panel ordered but pending. 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 Coding Level of Care Code Acute Cardiovascular Lab Director for Chg Fwd Diagnoses Hypercalcemia E83.52 Syncope R55 Orthostatic hypotension I95.1 Elevated troponin R77.8 Chronic systolic heart failure I50.22 Acute kidney injury superimposed on CKD N17.9; N18.9
--- NOTE | 2022-05-07 13:34 | USCV_ITS ---
Rei Queen Age: 51 Gender: M : 1970 Exam Date: 05/07/2022 14:27 Ordering Phys: Esmer Hunter MD Technologist: Exam Location: [facility] [place] Indication: chf BP: 143 / 83 HR: 51 Rhythm: Sinus Technical Quality: Adequate MEASUREMENTS (Male / Female) Normal Values 2D ECHO LV Diastolic Diameter PLAX 4.2 cm 4.2 - 5.9 / 3.9 - 5.3 cm LV Systolic Diameter PLAX 2.9 cm IVS Diastolic Thickness 1.1 cm 0.6 - 1.0 / 0.6 - 0.9 cm IVS Systolic Thickness 1.5 cm LVPW Diastolic Thickness 1.2 cm 0.6 - 1.0 / 0.6 - 0.9 cm LVPW Systolic Thickness 1.4 cm LVOT Diameter 2.0 cm LV Ejection Fraction 2D Teich 47.7 % LV Ejection Fraction MOD 2C 41.4 % LV Ejection Fraction 2C AL 40.6 % LA Diameter 4.8 cm M-MODE Aortic Annulus Diameter 3.8 cm LA Ao Ratio MM 1.5 MV E Point Septal Separation 2.6 cm DOPPLER AV Peak Velocity 85.0 cm/s LVOT Peak Velocity 55.0 cm/s AV Area Cont Eq vti 1.8 cm squared AV Area Cont Eq pk 2.0 cm squared MV Area PHT 5.0 cm squared Mitral E to A Ratio 0.6 MV E' Velocity 22.5 cm/s Mitral E to MV E' Ratio 10.4 Mitral E to LV E' Lateral Ratio 10.4 Mitral E to LV E' Septal Ratio 10.7 TR Peak Velocity 98.0 cm/s TR Peak Gradient 3.8 mmHg TV Peak E Velocity 67.0 cm/s Right Atrial Pressure 3.0 mmHg Pulmonary Artery Systolic Pressu 6.8 mmHg RV Acceleration Time 0.1 s FINDINGS Left Ventricle Left ventricle is normal in size. LV systolic function is moderately reduced with EF of 35 to 40%. Regional wall motion abnormalities cannot be accurately assessed because of poor ultrasonic windows. Grade 1 diastolic dysfunction. Right Ventricle Grossly appears to be hypokinetic. Right Atrium Not well-visualized Left Atrium Normal in size Mitral Valve Grossly normal. Aortic Valve Grossly normal. No significant stenosis or regurgitation. Tricuspid Valve Mild tricuspid regurgitation. RVSP is normal. Pulmonic Valve Not well visualized Pericardium Normal Aorta Normal in size IVC CONCLUSIONS Technically limited quality echocardiogram because of poor ultrasonic windows. LV systolic function is moderately reduced with EF of 35 to 40%. Regional wall motion abnormalities cannot be accurately assessed because of poor ultrasonic windows. Grade 1 diastolic dysfunction RV appears to be grossly hypokinetic. Mild tricuspid regurgitation Compared to prior echocardiogram from 2020, no significant changes are seen. Garrison Mckinney MD (Electronically Signed) Final Date: 07 May 2022 20:30 S
[2022-05-07 14:02] LABS: Alanine Aminotransferase 10 U/L (0-41); Albumin Level 3.2 g/dL (3.5-5.2); Alkaline Phosphatase 124 U/L (40-130); Blood Urea Nitrogen 58 mg/dL (6-20); Calcium 11.6 mg/dL (8.5-10.5); Carbon Dioxide 29 mmol/L (22-29); Chloride 94 mmol/L (98-107); Globulin 3.1 g/dL (1.3-4.6); Glomerular Filtration Rate 14.1 mL/min (90-130); Glucose 106 mg/dL (65-115); Osmolality Calculated 295 mOsm/kg (285-295); Sodium 134 mmol/L (136-145); Total Bilirubin 0.6 mg/dL (0.15-1.2); Total Protein 6.3 g/dL (6.6-8.7)
[2022-05-07 14:04] LABS: Anion Gap 14.4 (5-19); Aspartate Amino Transferase 15 U/L (0-40); Potassium 3.4 mmol/L (3.5-5.1)
[2022-05-07 17:15] LABS: Adenovirus Not Detected (NOT DETECT); Chlamydia Pneumoniae Not Detected (NOT DETECT); Coronavirus 229E,HKU1,NL63,OC4 Not Detected (NOT DETECT); Human Metapneumovirus Not Detected (NOT DETECT); Human Rhinovirus/Enterovirus Not Detected (NOT DETECT); Influenza A Not Detected (NOT DETECT); Influenza A H1 Not Detected (NOT DETECT); Influenza A H1-2009 Not Detected (NOT DETECT); Influenza A H3 Not Detected (NOT DETECT); Influenza B Not Detected (NOT DETECT); Mycoplasma Pneumoniae Not Detected (NOT DETECT); Parainfluenza Virus Type 1 Not Detected (NOT DETECT); Parainfluenza Virus Type 2 Not Detected (NOT DETECT); Parainfluenza Virus Type 3 Not Detected (NOT DETECT); Parainfluenza Virus Type 4 Not Detected (NOT DETECT); Respiratory Syncytial Virus A Not Detected (NOT DETECT); Respiratory Syncytial Virus B Not Detected (NOT DETECT); SARS-COV-2 Not Detected (NOT DETECT)
[2022-05-07] MEDS: sodium chloride 0.9% 1,000 ML 100 ML IV (18:03)
[2022-05-07] MEDS: oxyCODONE 5 mg IR Tab/Cap PO (20:53)
[2022-05-07] MEDS: NON-FORMULARY MEDICATION (Insulin Degludec [Tresiba Flextouch U-200] 200 unit/mL (3 mL) in 38 EACH SUBCUT (20:55)
[2022-05-07 21:19] LABS: Glucose Point of Care 118 mg/dL (70-110)
[2022-05-08] VITALS (10 sets, daily range): BP systolic 96–170; BP diastolic 59–92; PULSE 55–75; RESP 16–17; TEMP 36.3–36.8; O2SAT 93–96
[2022-05-08] MEDS: sodium chloride 0.9% 1,000 ML 100 ML IV ×2 (03:40→14:38)
[2022-05-08] MEDS: buPROPion XL (24 HR) 300 mg Tablet PO (05:12)
[2022-05-08] MEDS: aspirin 81 mg EC Tablet PO (05:12)
[2022-05-08] MEDS: levothyroxine 88 mcg Tablet PO (05:12)
[2022-05-08] MEDS: atorvastatin 40 mg Tablet PO (05:12)
[2022-05-08 06:39] LABS: PROTEIN, TOTAL 5.6 g/dL (6.1-8.1)
--- NOTE | 2022-05-08 07:24 | P.PN_ITS ---
Subjective Subjective: feels better. no edema. no n/v/f/c/cp/palomo/d. improved MS Medications: Reviewed: Yes Medication Review Details: Current Medications Acetaminophen (Acetaminophen 325 Mg Tablet) 650 mg PO Q6H PRN PRN Reason: Mild/Mod Pain Or Temp >/= 101 Last Admin: 05/07/22 18:08 Dose: 650 mg Amlodipine Besylate (Amlodipine 5 Mg Tablet) 5 mg PO DAILY [facility] Last Admin: 05/07/22 08:42 Dose: 5 mg Apixaban (Apixaban 5 Mg Tablet) 2.5 mg PO BID [facility] Last Admin: 05/07/22 17:57 Dose: 2.5 mg Aspirin (Aspirin 81 Mg Ec Tablet) 81 mg PO DAILY@0600 [facility] Last Admin: 05/08/22 05:12 Dose: 81 mg Atorvastatin Calcium (Atorvastatin 40 Mg Tablet) 40 mg PO QAM [facility] Last Admin: 05/08/22 05:12 Dose: 40 mg Bupropion HCl (Bupropion Xl (24 Hr) 300 Mg Tablet) [facility] [place] [facility] [place] Admin: 05/08/22 05:12 Dose: 300 mg Buspirone HCl (Buspirone 10 Mg Tablet) 5 mg PO TID [facility] Last Admin: 05/07/22 20:52 Dose: 5 mg Calcitonin [place] (Calcitonin,[place] 200 Unit/Ml Sdv 2ml) 100 unit SUBCUT BID [facility] Last Admin: 05/07/22 17:57 Dose: 100 unit Citalopram Hydrobromide (Citalopram 20 Mg Tablet) 40 mg PO DAILY [facility] Last Admin: 05/07/22 08:42 Dose: 40 mg Cyclobenzaprine HCl (Cyclobenzaprine 10 Mg Tablet) 10 mg PO TID PRN PRN Reason: MUSCLE SPASMS Docusate Sodium (Docusate Sodium 100 Mg Capsule) 100 mg PO BID [facility] Last Admin: 05/07/22 18:04 Dose: Not Given Sodium Chloride (Sodium Chloride 0.9%) 1,000 mls @ 100 mls/hr IV .Q10H [facility] Last Admin: 05/08/22 03:40 Dose: 100 mls/hr Isosorbide Mononitrate (Isosorbide Mononitrate Er 30 Mg Tablet) 30 mg PO BID@0600,1800 [facility] Levothyroxine Sodium (Levothyroxine 88 Mcg Tablet) 88 mcg PO QAM [facility] Last Admin: 05/08/22 05:12 Dose: 88 mcg Lidocaine (Lidocaine 5% Patch) 1 patch TRANSDERMA PRN PRN PRN Reason: Pain Metoprolol Tartrate (Metoprolol Tartrate 50 Mg Tablet) 25 mg PO BID@0600,1800 [facility] Last Admin: 05/08/22 05:13 Dose: Not Given Morphine Sulfate (Morphine 4 Mg/Ml Sdv 1 Ml) 2 mg IVP Q4H PRN PRN Reason: SEVERE PAIN Naloxone HCl (Naloxone 0.4 Mg/Ml Sdv) 0.1 mg IVP Q2M PRN PRN Reason: OPIATERV Non-Formulary Medication (Insulin Degludec [Tresiba Flextouch U-200]) 38 unit SUBCUT BEDTIME [facility] Last Admin: 05/07/22 20:55 Dose: 38 unit Oxycodone HCl (Oxycodone 5 Mg Ir Tab/Cap) 5 mg PO Q4H PRN PRN Reason: pain Last Admin: 05/07/22 20:53 Dose: 5 mg Pantoprazole Sodium (Pantoprazole Dr 40 Mg Tablet) 40 mg PO DAILY [facility] Last Admin: 05/07/22 08:42 Dose: 40 mg Potassium Chloride (Potassium Chloride Er 20 Meq Tablet) 40 meq PO ONCE [facility] Stop: 05/08/22 07:31 Promethazine HCl (Promethazine 25 Mg Tablet) 25 mg PO Q6H PRN PRN Reason: Pain Last Admin: 05/07/22 06:40 Dose: 25 mg Ranolazine (Ranolazine (12hr) 500 Mg Tablet) 500 mg PO BID [facility] Trazodone HCl (Trazodone 100 Mg Tablet) 400 mg PO BEDTIME PRN PRN Reason: insomnia Vitals/I&O/Wt Last Vital Signs Temp 97.5 F L 05/08/22 04:00 Pulse 55 L 05/08/22 05:28 Resp 16 05/08/22 04:00 BP 150/69 05/08/22 04:00 Pulse Ox 94 05/08/22 04:00 O2 Del Method 05/08/22 04:00 O2 Flow Rate 2 05/08/22 04:00 05/07/22 05/08/22 05/08/22 22:59 06:59 14:59 Intake Total 1288.333 / 2325.833 1441.667 / 3767.500 Output Total 850 / 1850 Balance 438.333 / 305.942 1851.667 / 1917.500 Weight last 48 hrs Weight 101.605 kg Physical Exam Narrative: comfortable in bed, NARD vs noted and stable heent- nc/at, eomi, anicteric neck supple lungs clear heart reg abd soft, nt, distended, + bs, per pt has a left side- internal PD catheter ext no edema neuro- a,a, o x 2+, moves, more alert and appropriate Data 05/07/22 05:45 05/07/22 13:20 A&P Assessment and plan (1) Acute kidney injury superimposed on CKD: 51 yr old man 1. CKD stage 4- from DM,CRS 2. JESUS- recent diuresis. -urinalysis- 2+ protein, 1+ glu. 2+ blood, urine microalbumin/ cr 1095. -ur na was 61 -renal us- rt 11.2 cm, left 11.1 cm- no hydronephrosis -check ck -creatinine improving w/ ivf 3. hypercalcemia- pt was on high dose calcitriol and metolazone stop- give ivf, lasix, and calcitonin- monitor - await repeat labs -await pth rp, spep, fede levels 4. met alkalosis- from diuretics -improving -lactic acidosis- monitor 5. htn- bp improved- cont amlodipine, metoprolol. 6. dm control per medicine 7. hgb 15 decreased to 13.6- he was likely dry meds reviewed seen and examined w/ RN - telehealth visit informed consent obtained from pt and his time spent 30 minutes Plan see above- adjust fluids-based on repeat chemistries Attestations Medical Necessity Statement*: jesus, ckd, hypercalcemia Time Spent in Patient Care: 16 - 35 minutes (>than 50% of time spent in counselling and/or direct pt care on unit) . Coding Level of Care Code Acute Gas Technician for Aaron Irene Diagnoses Acute kidney injury superimposed on CKD N17.9; N18.9
[2022-05-08] MEDS: amlodipine 5 mg Tablet PO (08:08)
[2022-05-08] MEDS: citalopram 20 mg Tablet 40 MG PO (08:08)
[2022-05-08] MEDS: BuSPIRONE 10 mg Tablet 5 MG PO ×3 (08:08→20:46)
[2022-05-08] MEDS: apixaban 5 mg Tablet 2.5 MG PO ×2 (08:08→17:40)
[2022-05-08] MEDS: calcitonin,salmon 200 unit/mL SDV 2mL 100 UNIT SUBCUT ×2 (08:08→17:40)
[2022-05-08] MEDS: pantoprazole DR 40 mg Tablet PO (08:08)
[2022-05-08 11:54] LABS: ALBUMIN 3.1 g/dL (3.8-4.8); ALPHA 1 GLOBULIN 0.4 g/dL (0.2-0.3); ALPHA 2 GLOBULIN 0.7 g/dL (0.5-0.9); BETA 1 GLOBULIN 0.4 g/dL (0.4-0.6); BETA 2 GLOBULIN 0.3 g/dL (0.2-0.5); GAMMA GLOBULIN 0.7 g/dL (0.8-1.7)
--- NOTE | 2022-05-08 13:09 | PM.PN ---
Subjective Subjective: seen this am states he is starting to feel better more awake today. denies chest pain, sob, n/v/d Vitals/I&O/Wt Last Vital Signs Temp 97.6 F 05/08/22 11:03 Pulse 60 05/08/22 11:03 Resp 16 05/08/22 11:03 BP 96/65 05/08/22 11:04 Pulse Ox 93 05/08/22 11:03 O2 Del Method 05/08/22 11:03 O2 Flow Rate 2 05/08/22 08:00 05/07/22 05/08/22 05/08/22 22:59 06:59 14:59 Intake Total 1288.333 / 2325.833 1441.667 / 3767.500 Output Total 850 / 1850 Balance 438.333 / 518.916 1891.667 / 1917.500 Weight last 48 hrs Weight 101.605 kg Physical Exam Narrative: General: No acute distress, AO x3, appears older than age, chrornically ill appearing. Appears sleepy and weak. HEENT: EOMI. Chest: Clear to auscultation bilaterally no wheezes or rhonchi present. CVS: S1-S2 regular, no tachycardia, no gallops, no rubs Abdomen: Soft, nontender, bowel sounds present Neuro: Moves all 4 extremities. Extremities: no edema, clubbing or cyanosis Data 05/07/22 05:45 05/07/22 13:20 A&P Assessment and plan (1) Hypercalcemia: (2) Syncope: (3) Orthostatic hypotension: (4) Elevated troponin: (5) Chronic systolic heart failure: (6) Acute kidney injury superimposed on CKD: Plan JUAN R on CKD stage 4 Hypercalemia Metabolic alkalosis HTN Diabetes mellitus Orthostatic hypotension Presenting today with generalized fatigue, recurrent syncopal episodes over last 2 weeks. Abnormal labs as noted above in HPI For Juan R on CKD, hypercalcemia, poor po intake and orthostatsic hypotension: Continue IV fluids., Continue calcitonin. ? Continue amlodipine metoprolol. Hold hydralazine. ? Urine tox screen pending Orthostatics are positive today. Hold Imdur and Ranexa. Nephrology following. Appreciate recommendations. Telemetry monitoring continuos Monitor for bradycardia and arrhythmias Baseline trop 79, troponin 68.8. Delta -10. No st -t wave changes acutely at admission. Baseline trop level 40s range Echo shows EF 35%. Echo from March 2021. Repeat echo from this hospitalization is pending at this time. Recent carotid doppler 02/2022: no significant ICA stenosis Respiratory viral panel is negative labs are pending from today. 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 Coding Level of Care Code Acute Senior Engineering Team Leader for Chg Fwd Diagnoses Hypercalcemia E83.52 Syncope R55 Orthostatic hypotension I95.1 Elevated troponin R77.8 Chronic systolic heart failure I50.22 Acute kidney injury superimposed on CKD N17.9; N18.9
[2022-05-08 13:21] LABS: Creatinine, Random Urine 42 mg/dL (20-320); Protein, Total, Random 88 mg/dL (5-25); Protein/Creatinine Ratio 2.095 (0.025-0.148); Protein/Creatinine Ratio 2095 mg/g creat (25-148)
[2022-05-08] MEDS: acetaminophen 325 mg Tablet 650 MG PO (14:41)
[2022-05-08 15:20] LABS: Basophils # 0.1 10^3/uL (0.0-0.1); Basophils % 0.9 %; Eosinophils # 0.2 10^3/uL (0.0-0.8); Eosinophils % 2.2 %; Hematocrit 37.1 % (42.0-52.0); Hemoglobin 12.4 g/dL (11.7-16.6); Lymphocytes # 1.3 10^3/uL (0.8-4.8); Lymphocytes % 12.6 %; Mean Corpuscular HGB Conc 33.4 g/dL (30.0-36.0); Mean Corpuscular Hemoglobin 30.8 pg (28.0-34.0); Mean Corpuscular Volume 92.3 fl (80-94); Mean Platelet Volume 10.1 fL (7.4-10.4); Monocytes # 0.6 10^3/uL (0.2-0.9); Monocytes % 6.2 %; Neutrophils # 7.94 10^3/uL (1.8-7.7); Neutrophils % 77.6 %; Nucleated Red Blood Cells % 0 %; Platelet Count 265 10^3/cmm (130-400); Red Blood Count 4.02 10^6/uL (4.1-5.3); Red Cell Distribution Width 14.6 % (12.1-15.1); White Blood Count 10.2 10^3/uL (4.0-10.0)
[2022-05-08 15:26] LABS: Phosphorus 2.6 mg/dL (2.5-4.5)
[2022-05-08 15:27] LABS: Alanine Aminotransferase 8 U/L (0-41); Albumin Level 3.1 g/dL (3.5-5.2); Alkaline Phosphatase 108 U/L (40-130); Anion Gap 13.1 (5-19); Aspartate Amino Transferase 12 U/L (0-40); Blood Urea Nitrogen 49 mg/dL (6-20); Calcium 10.8 mg/dL (8.5-10.5); Carbon Dioxide 31 mmol/L (22-29); Chloride 102 mmol/L (98-107); Globulin 2.7 g/dL (1.3-4.6); Glomerular Filtration Rate 17.3 mL/min (90-130); Glucose 92 mg/dL (65-115); Magnesium 1.6 mg/dL (1.7-2.3); Osmolality Calculated 309 mOsm/kg (285-295); Phosphorus 2.5 mg/dL (2.5-4.5); Potassium 3.1 mmol/L (3.5-5.1); Sodium 143 mmol/L (136-145); Total Bilirubin 0.3 mg/dL (0.15-1.2); Total Protein 5.8 g/dL (6.6-8.7)
[2022-05-08] MEDS: metoprolol tartrate 50 mg Tablet 25 MG PO (17:40)
[2022-05-08] MEDS: NON-FORMULARY MEDICATION (Insulin Degludec [Tresiba Flextouch U-200] 200 unit/mL (3 mL) in 38 EACH SUBCUT (20:46)
--- NOTE | 2022-05-08 22:09 | PC.NURSE ---
Patient requested trazadone for sleep aid. This nurse looked at the PRN orders and found an order for 400mg Trazadone PRN. Patient's last creatinine was 3.7 and nurse clarified order with Dr Etienne via phone. Dr Etienne instructed this nurse to only administer 100mg, as 400mg was too much for patient's last creatinine.
[2022-05-08] MEDS: trazodone 100 mg Tablet PO (22:43)
[2022-05-08] MEDS: oxyCODONE 5 mg IR Tab/Cap PO (23:01)
[2022-05-09] VITALS (11 sets, daily range): BP systolic 113–165; BP diastolic 54–84; PULSE 52–67; RESP 16–19; TEMP 36.1–36.8; O2SAT 92–94
[2022-05-09] MEDS: sodium chloride 0.9% 1,000 ML 100 ML IV (02:16)
[2022-05-09 05:30] LABS: Basophils # 0.1 10^3/uL (0.0-0.1); Eosinophils # 0.3 10^3/uL (0.0-0.8); Eosinophils % 3.6 %; Hematocrit 34.5 % (42.0-52.0); Hemoglobin 11.6 g/dL (11.7-16.6); Lymphocytes # 2.4 10^3/uL (0.8-4.8); Lymphocytes % 28.4 %; Mean Corpuscular HGB Conc 33.6 g/dL (30.0-36.0); Mean Corpuscular Hemoglobin 30.7 pg (28.0-34.0); Mean Corpuscular Volume 91.3 fl (80-94); Monocytes # 0.7 10^3/uL (0.2-0.9); Monocytes % 8.8 %; Neutrophils # 4.85 10^3/uL (1.8-7.7); Neutrophils % 57.6 %; Nucleated Red Blood Cells % 0 %; Platelet Count 267 10^3/cmm (130-400); Red Blood Count 3.78 10^6/uL (4.1-5.3); Red Cell Distribution Width 14.8 % (12.1-15.1); White Blood Count 8.4 10^3/uL (4.0-10.0)
[2022-05-09 05:45] LABS: Alanine Aminotransferase 7 U/L (0-41); Albumin Level 2.9 g/dL (3.5-5.2); Alkaline Phosphatase 99 U/L (40-130); Aspartate Amino Transferase 14 U/L (0-40); Blood Urea Nitrogen 43 mg/dL (6-20); Calcium 9.7 mg/dL (8.5-10.5); Carbon Dioxide 28 mmol/L (22-29); Chloride 100 mmol/L (98-107); Globulin 2.1 g/dL (1.3-4.6); Glomerular Filtration Rate 20.4 mL/min (90-130); Glucose 151 mg/dL (65-115); Magnesium 1.5 mg/dL (1.7-2.3); Osmolality Calculated 298 mOsm/kg (285-295); Phosphorus 2.2 mg/dL (2.5-4.5); Sodium 137 mmol/L (136-145); Total Bilirubin 0.2 mg/dL (0.15-1.2)
[2022-05-09] MEDS: levothyroxine 88 mcg Tablet PO (05:49)
[2022-05-09] MEDS: aspirin 81 mg EC Tablet PO (05:49)
[2022-05-09] MEDS: buPROPion XL (24 HR) 300 mg Tablet PO (05:49)
[2022-05-09] MEDS: atorvastatin 40 mg Tablet PO (05:49)
--- NOTE | 2022-05-09 07:01 | P.PN_ITS ---
Subjective Subjective: awake and alert. c/o swelling. no n/v/f/c/palomo/d/leg pains Medications: Reviewed: Yes Medication Review Details: Current Medications Acetaminophen (Acetaminophen 325 Mg Tablet) 650 mg PO Q6H PRN PRN Reason: Mild/Mod Pain Or Temp >/= 101 Last Admin: 05/08/22 14:41 Dose: 650 mg Amlodipine Besylate (Amlodipine 5 Mg Tablet) 5 mg PO DAILY [facility] Last Admin: 05/08/22 08:08 Dose: 5 mg Apixaban (Apixaban 5 Mg Tablet) 2.5 mg PO BID [facility] Last Admin: 05/08/22 17:40 Dose: 2.5 mg Aspirin (Aspirin 81 Mg Ec Tablet) 81 mg PO DAILY@0600 [facility] Last Admin: 05/09/22 05:49 Dose: 81 mg Atorvastatin Calcium (Atorvastatin 40 Mg Tablet) 40 mg PO QAM [facility] Last Admin: 05/09/22 05:49 Dose: 40 mg Bupropion HCl (Bupropion Xl (24 Hr) 300 Mg Tablet) [facility] [place] [facility] Admin: 05/09/22 05:49 Dose: 300 mg Buspirone HCl (Buspirone 10 Mg Tablet) 5 mg PO TID [facility] Last Admin: 05/08/22 20:46 Dose: 5 mg Calcitonin Reagan (Calcitonin,Reagan 200 Unit/Ml Sdv 2ml) 100 unit SUBCUT BID [facility] Last Admin: 05/08/22 17:40 Dose: 100 unit Citalopram Hydrobromide (Citalopram 20 Mg Tablet) 40 mg PO DAILY [facility] Last Admin: 05/08/22 08:08 Dose: 40 mg Cyclobenzaprine HCl (Cyclobenzaprine 10 Mg Tablet) 10 mg PO TID PRN PRN Reason: MUSCLE SPASMS Docusate Sodium (Docusate Sodium 100 Mg Capsule) 100 mg PO BID [facility] Last Admin: 05/08/22 17:41 Dose: Not Given Sodium Chloride (Sodium Chloride 0.9%) 1,000 mls @ 100 mls/hr IV .Q10H [facility] Last Admin: 05/09/22 02:16 Dose: 100 mls/hr Isosorbide Mononitrate (Isosorbide Mononitrate Er 30 Mg Tablet) 30 mg PO BID@0600,1800 [facility] Levothyroxine Sodium (Levothyroxine 88 Mcg Tablet) 88 mcg PO QAM [facility] Last Admin: 05/09/22 05:49 Dose: 88 mcg Lidocaine (Lidocaine 5% Patch) 1 patch TRANSDERMA PRN PRN PRN Reason: Pain Metoprolol Tartrate (Metoprolol Tartrate 50 Mg Tablet) 25 mg PO BID@0600,1800 [facility] Last Admin: 05/09/22 06:43 Dose: Not Given Morphine Sulfate (Morphine 4 Mg/Ml Sdv 1 Ml) 2 mg IVP Q4H PRN PRN Reason: SEVERE PAIN Naloxone HCl (Naloxone 0.4 Mg/Ml Sdv) 0.1 mg IVP Q2M PRN PRN Reason: OPIATERV Non-Formulary Medication (Insulin Degludec [Tresiba Flextouch U-200]) 38 unit SUBCUT BEDTIME [facility] Last Admin: 05/08/22 20:46 Dose: 38 unit Oxycodone HCl (Oxycodone 5 Mg Ir Tab/Cap) 5 mg PO Q4H PRN PRN Reason: pain Last Admin: 05/08/22 23:01 Dose: 5 mg Pantoprazole Sodium (Pantoprazole Dr 40 Mg Tablet) 40 mg PO DAILY [facility] Last Admin: 05/08/22 08:08 Dose: 40 mg Promethazine HCl (Promethazine 25 Mg Tablet) 25 mg PO Q6H PRN PRN Reason: Pain Last Admin: 05/07/22 06:40 Dose: 25 mg Ranolazine (Ranolazine (12hr) 500 Mg Tablet) 500 mg PO BID [facility] Trazodone HCl (Trazodone 100 Mg Tablet) 400 mg PO BEDTIME PRN PRN Reason: insomnia Vitals/I&O/Wt Last Vital Signs Temp 97.9 F 05/09/22 03:14 Pulse 54 L 05/09/22 06:10 Resp 17 05/09/22 03:14 BP 146/75 05/09/22 03:14 Pulse Ox 92 05/09/22 03:14 O2 Del Method 05/09/22 03:14 O2 Flow Rate 2 05/08/22 08:00 05/08/22 05/09/22 05/09/22 22:59 06:59 14:59 Intake Total 480 / 2200 1420 / 3620 Balance 480 / 2200 1420 / 3620 Physical Exam Narrative: comfortable in bed, NARD vs noted and stable heent- nc/at, eomi, anicteric neck supple lungs clear heart reg abd soft, nt, distended, + bs, per pt has a left side- internal PD catheter ext no edema neuro- a,a, o x 3, moves, alert and appropriate Data 05/09/22 05:20 05/09/22 05:20 A&P Assessment and plan (1) Acute kidney injury superimposed on CKD: 51 yr old man 1. CKD stage 4- from DM,CRS 2. JESUS- recent diuresis. -urinalysis- 2+ protein, 1+ glu. 2+ blood, urine microalbumin/ cr 1095. -ur na was 61 -renal us- rt 11.2 cm, left 11.1 cm- no hydronephrosis -check ck -creatinine improving- better than baseline -d/c ivf 3. hypercalcemia- pt was on high dose calcitriol and metolazone stop- improved w/ ivf, lasix, and calcitonin- monitor - -await pth rp, spep, fede levels 4. met alkalosis- from diuretics -improving -lactic acidosis- monitor 5. replace k, mag and phos 6. htn- bp improved- cont amlodipine, metoprolol. as bradycardia- consier dec be 7. dm control per medicine 8. hgb 15 decreased to 11.6- he was likely dry meds reviewed seen and examined w/ RN - telehealth visit informed consent obtained from pt and his time spent 30 minutes Plan see above- adjust fluids-based on repeat chemistries Attestations Medical Necessity Statement*: per medicine. jesus, ckd stage 4, electrolyte abnormalities Time Spent in Patient Care: 16 - 35 minutes (>than 50% of time spent in counselling and/or direct pt care on unit) . Coding Level of Care Code Acute Brick Shader for Aaron Irene Diagnoses Acute kidney injury superimposed on CKD N17.9; N18.9
[2022-05-09] MEDS: BuSPIRONE 10 mg Tablet 5 MG PO ×3 (08:33→20:14)
[2022-05-09] MEDS: apixaban 5 mg Tablet 2.5 MG PO ×2 (08:33→17:38)
[2022-05-09] MEDS: amlodipine 5 mg Tablet PO (08:33)
[2022-05-09] MEDS: citalopram 20 mg Tablet 40 MG PO (08:33)
[2022-05-09] MEDS: pantoprazole DR 40 mg Tablet PO (08:33)
--- NOTE | 2022-05-09 09:08 | PC.SOCIAL ---
IMM update IMM Updated with patient. Verbalized an understanding. Copy Pg 2 provided. Initialled, dated, timed, and placed in chart.
[2022-05-09 10:09] LABS: Albumin,Urine Random 63 %; Alpha-1-Globulins Urine Random 6 %; Alpha-2-Globulins Urine Random 9 %; Beta-Globulin,Urine Random 13 %; Gamma Globulin,Urine Random 9 %
[2022-05-09 12:14] LABS: Angiotensin Converting Enzyme 29 U/L (9-67)
--- NOTE | 2022-05-09 13:15 | P.PN_ITS ---
Subjective Subjective: Seen this morning no acute events overnight. Electrolytes are starting to appear better on labs. Potassium 3 today. Will be repleted. Nephrology following. Patient says his weakness is improved a little bit as well and has been able to get out of bed. Abdominal pain is also resolved. Vitals/I&O/Wt Last Vital Signs Temp 97.8 F 05/09/22 11:46 Pulse 54 L 05/09/22 11:46 Resp 16 05/09/22 11:46 BP 147/84 05/09/22 11:46 Pulse Ox 92 05/09/22 11:46 O2 Del Method 05/09/22 11:46 O2 Flow Rate 2 05/08/22 08:00 05/08/22 05/09/22 05/09/22 22:59 06:59 14:59 Intake Total 480 / 2200 1420 / 3620 1063.667 / 1063.667 Balance 480 / 2200 1420 / 3620 1063.667 / 1063.667 Physical Exam Narrative: General: No acute distress, AO x3, appears older than age, canteen manager rnically ill appearing. Appears sleepy and weak. HEENT: EOMI. Chest: Clear to auscultation bilaterally no wheezes or rhonchi present. CVS: S1-S2 regular, no tachycardia, no gallops, no rubs Abdomen: Soft, nontender, bowel sounds present Neuro: Moves all 4 extremities. Extremities: no edema, clubbing or cyanosis Data 05/09/22 05:20 05/09/22 05:20 A&P Assessment and plan (1) Hypercalcemia: (2) Syncope: (3) Orthostatic hypotension: (4) Elevated troponin: (5) Chronic systolic heart failure: (6) Acute kidney injury superimposed on CKD: Plan JUAN R on CKD stage 4 Hypercalemia Metabolic alkalosis HTN Diabetes mellitus Orthostatic hypotension Presenting today with generalized fatigue, recurrent syncopal episodes over last 2 weeks. Abnormal labs as noted above in HPI For Juan R on CKD, hypercalcemia, poor po intake and orthostatsic hypotension: Continue IV fluids., Continue calcitonin. ? Continue amlodipine metoprolol. Hold hydralazine. ? Urine tox screen pending Will recheck orthostatics. Hold Imdur and Ranexa. Nephrology following. Appreciate recommendations. Telemetry monitoring continuos Monitor for bradycardia and arrhythmias Baseline trop 79, troponin 68.8. Delta -10. No st -t wave changes acutely at admission. Baseline trop level 40s range Echo shows EF 35%. Echo from March 2021. Repeat echo from this hospitalization is pending at this time. 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 Attestations Medical Necessity Statement*: Continue hospitalization today. We will recheck orthostatics. Continue to work with physical therapy. Potential discharge in a.m. once cleared by nephrology. Coding Level of Care Code Acute Curtain Roller Assembler for Chg Fwd Diagnoses Hypercalcemia E83.52 Syncope R55 Orthostatic hypotension I95.1 Elevated troponin R77.8 Chronic systolic heart failure I50.22 Acute kidney injury superimposed on CKD N17.9; N18.9
[2022-05-09] MEDS: metoprolol tartrate 25 mg Tablet 12.5 MG PO (17:38)
[2022-05-09] MEDS: acetaminophen 325 mg Tablet 650 MG PO (17:38)
--- NOTE | 2022-05-09 19:53 | PC.NURSE ---
Patient stated that he had been experiencing strong chest pain since 1600 or 1700 but had not reported it to the dayshift nurse. Patient also stated that he had been short of breath, but patient had not been compliant with 2 liters nasal cannula. O2 re-applied to patient and patient requested something for pain, as well as nightly trazadone for sleep. Dr Etienne was notified of patient's symptoms and last charted vitals. Dr Etienne instructed nurse to administer oxycodone and 100mg trazadone. Patient resting in bed, two side rails up, with bed locked in lowest position and call light within reach.
[2022-05-09] MEDS: oxyCODONE 5 mg IR Tab/Cap PO (20:14)
[2022-05-09] MEDS: NON-FORMULARY MEDICATION (Insulin Degludec [Tresiba Flextouch U-200] 200 unit/mL (3 mL) in 38 EACH SUBCUT (23:11)
[2022-05-09] MEDS: trazodone 100 mg Tablet PO (23:11)
--- NOTE | 2022-05-09 23:26 | ECG_ITS ---
[facility] Test Date: 2022-05-10 Pat Name: Rei Queen Department: Room: 256 Gender: Male Risk Consultant: : 1970 Requested By: Rosi Etienne Order Number: [id number] Becky MD: Garrison Mckinney M.D. Measurements Intervals [place] Rate: 60 P: 12 CA: 166 QRS: -3 QRSD: 117 T: 27 QT: 446 QTc: 447 Interpretive Statements SINUS RHYTHM ANTERIOR MYOCARDIAL INFARCTION , OF INDETERMINATE AGE [40+ ms Q WAVE AND/OR ST/T ABNORMALITY IN V3/V4] Compared to ECG 05/06/2022 18:00:51 No significant changes Electronically Signed On 05-10-2022 12:57:15 CONTACT CENTER ASSOCIATE by Garrison Mckinney M.D. [id number]
--- NOTE | 2022-05-09 23:27 | PC.NURSE ---
Patient still complaining of chest pain. Dr Etienne notified and instructed to put in order for EKG.
[2022-05-10] VITALS (10 sets, daily range): BP systolic 114–165; BP diastolic 59–83; PULSE 56–77; RESP 16–19; TEMP 36.4–36.8; O2SAT 91–99
--- NOTE | 2022-05-10 00:15 | PC.NURSE ---
Patient's spouse called floor asking for nurse taking care of patient. Spouse stated that she was upset because we have no idea what is going on, and asked what labs were elevated and low. This nurse read the labs off to the patient's spouse, to which the spouse stated well, I don't know what normal levels are so that doesn't help me. This nurse encouraged the spouse to come in during doctor rounding to ask further questions and get answers regarding treatment questions. This nurse then rounded on the patient, who informed the nurse that his spouse had called him and was very upset and was about to call you back and chew you out. Patient also stated that might be angry in the morning.
[2022-05-10] MEDS: oxyCODONE 5 mg IR Tab/Cap PO (01:05)
--- NOTE | 2022-05-10 03:09 | PC.NURSE ---
Patient reported increased pain. Dr Etienne was notified, and stated that EKG looked okay from his standpoint. Dr Etienne instructed nurse to administer 2mg morphine, and get baseline troponin and d-dimer at this time.
[2022-05-10] MEDS: morphine 4 mg/mL SDV 1 mL 2 MG IVP (03:15)
[2022-05-10] MEDS: buPROPion XL (24 HR) 300 mg Tablet PO (05:19)
[2022-05-10] MEDS: atorvastatin 40 mg Tablet PO (05:19)
[2022-05-10] MEDS: aspirin 81 mg EC Tablet PO (05:19)
[2022-05-10] MEDS: metoprolol tartrate 25 mg Tablet 12.5 MG PO ×2 (05:19→16:59)
[2022-05-10] MEDS: levothyroxine 88 mcg Tablet PO (05:19)
[2022-05-10 06:04] LABS: Basophils # 0.1 10^3/uL (0.0-0.1); Basophils % 0.9 %; Eosinophils # 0.2 10^3/uL (0.0-0.8); Eosinophils % 2.6 %; Hematocrit 33.8 % (42.0-52.0); Hemoglobin 11.1 g/dL (11.7-16.6); Lymphocytes # 2.1 10^3/uL (0.8-4.8); Lymphocytes % 23.4 %; Mean Corpuscular HGB Conc 32.8 g/dL (30.0-36.0); Mean Corpuscular Hemoglobin 30.4 pg (28.0-34.0); Mean Corpuscular Volume 92.6 fl (80-94); Mean Platelet Volume 10.1 fL (7.4-10.4); Monocytes # 0.7 10^3/uL (0.2-0.9); Monocytes % 7.4 %; Neutrophils # 5.94 10^3/uL (1.8-7.7); Neutrophils % 65.4 %; Nucleated Red Blood Cells % 0 %; Platelet Count 260 10^3/cmm (130-400); Red Blood Count 3.65 10^6/uL (4.1-5.3); Red Cell Distribution Width 14.6 % (12.1-15.1); White Blood Count 9.1 10^3/uL (4.0-10.0)
[2022-05-10 06:19] LABS: D Dimer 0.45 ug/mIFEU (0-0.59)
[2022-05-10 06:29] LABS: Troponin T (5th) Once 45 ng/L (0-15)
[2022-05-10 06:32] LABS: Alanine Aminotransferase 7 U/L (0-41); Albumin Level 2.9 g/dL (3.5-5.2); Alkaline Phosphatase 90 U/L (40-130); Anion Gap 12.8 (5-19); Aspartate Amino Transferase 12 U/L (0-40); Blood Urea Nitrogen 39 mg/dL (6-20); Calcium 9.5 mg/dL (8.5-10.5); Carbon Dioxide 29 mmol/L (22-29); Chloride 99 mmol/L (98-107); Globulin 2.4 g/dL (1.3-4.6); Glucose 128 mg/dL (65-115); Magnesium 1.4 mg/dL (1.7-2.3); Osmolality Calculated 297 mOsm/kg (285-295); Phosphorus 2.3 mg/dL (2.5-4.5); Sodium 138 mmol/L (136-145); Total Bilirubin 0.2 mg/dL (0.15-1.2); Total Protein 5.3 g/dL (6.6-8.7)
--- NOTE | 2022-05-10 06:32 | P.PN_ITS ---
Subjective Subjective: seen and examined. he is tired. c/o CP overnight. no n/v/f/c/palomo/d/sob Medications: Reviewed: Yes Medication Review Details: Current Medications Acetaminophen (Acetaminophen 325 Mg Tablet) 650 mg PO Q6H PRN PRN Reason: Mild/Mod Pain Or Temp >/= 101 Last Admin: 05/09/22 17:38 Dose: 650 mg Amlodipine Besylate (Amlodipine 5 Mg Tablet) 5 mg PO DAILY [facility] Last Admin: 05/09/22 08:33 Dose: 5 mg Apixaban (Apixaban 5 Mg Tablet) 2.5 mg PO BID [facility] Last Admin: 05/09/22 17:38 Dose: 2.5 mg Aspirin (Aspirin 81 Mg Ec Tablet) 81 mg PO DAILY@0600 [facility] Last Admin: 05/10/22 05:19 Dose: 81 mg Atorvastatin Calcium (Atorvastatin 40 Mg Tablet) 40 mg PO QAM [facility] Last Admin: 05/10/22 05:19 Dose: 40 mg Bupropion HCl (Bupropion Xl (24 Hr) 300 Mg Tablet) [facility] [place] Last Admin: 05/10/22 05:19 Dose: 300 mg Buspirone HCl (Buspirone 10 Mg Tablet) 5 mg PO TID [facility] Last Admin: 05/09/22 20:14 Dose: 5 mg Citalopram Hydrobromide (Citalopram 20 Mg Tablet) 40 mg PO DAILY [facility] Last Admin: 05/09/22 08:33 Dose: 40 mg Cyclobenzaprine HCl (Cyclobenzaprine 10 Mg Tablet) 10 mg PO TID PRN PRN Reason: MUSCLE SPASMS Docusate Sodium (Docusate Sodium 100 Mg Capsule) 100 mg PO BID [facility] Last Admin: 05/09/22 17:40 Dose: Not Given Isosorbide Mononitrate (Isosorbide Mononitrate Er 30 Mg Tablet) 30 mg PO BID@0600,1800 [facility] Levothyroxine Sodium (Levothyroxine 88 Mcg Tablet) 88 m[facility] [place] Last Admin: 05/10/22 05:19 Dose: 88 mcg Lidocaine (Lidocaine 5% Patch) 1 patch TRANSDERMA PRN PRN PRN Reason: Pain Metoprolol Tartrate (Metoprolol Tartrate 25 Mg Tablet) 12.5 mg PO BID@0600,1800 [facility] Last Admin: 05/10/22 05:19 Dose: 12.5 mg Morphine Sulfate (Morphine 4 Mg/Ml Sdv 1 Ml) 2 mg IVP Q4H PRN PRN Reason: SEVERE PAIN Last Admin: 05/10/22 03:15 Dose: 2 mg Naloxone HCl (Naloxone 0.4 Mg/Ml Sdv) 0.1 mg IVP Q2M PRN PRN Reason: OPIATERV Non-Formulary Medication (Insulin Degludec [Tresiba Flextouch U-200]) 38 unit SUBCUT BEDTIME [facility] Last Admin: 05/09/22 23:11 Dose: 38 unit Oxycodone HCl (Oxycodone 5 Mg Ir Tab/Cap) 5 mg PO Q4H PRN PRN Reason: pain Last Admin: 05/10/22 01:05 Dose: 5 mg Pantoprazole Sodium (Pantoprazole Dr 40 Mg Tablet) 40 mg PO DAILY [facility] Last Admin: 05/09/22 08:33 Dose: 40 mg Promethazine HCl (Promethazine 25 Mg Tablet) 25 mg PO Q6H PRN PRN Reason: Pain Last Admin: 05/07/22 06:40 Dose: 25 mg Ranolazine (Ranolazine (12hr) 500 Mg Tablet) 500 mg PO BID [facility] Trazodone HCl (Trazodone 100 Mg Tablet) 400 mg PO BEDTIME PRN PRN Reason: insomnia Vitals/I&O/Wt Last Vital Signs Temp 97.9 F 05/10/22 03:55 Pulse 77 05/10/22 03:55 Resp 19 H 05/10/22 03:55 BP 137/73 05/10/22 03:55 Pulse Ox 92 05/10/22 03:55 O2 Del Method 05/10/22 03:55 O2 Flow Rate 2 05/08/22 08:00 05/09/22 05/09/22 05/10/22 14:59 22:59 06:59 Intake Total 1063.667 / 1063.667 240 / 1303.667 480 / 1783.667 Balance 1063.667 / 1063.667 240 / 1303.667 480 / 1783.667 Physical Exam Narrative: comfortable in bed, NARD vs noted and stable heent- nc/at, eomi, anicteric neck supple lungs clear heart reg abd soft, nt, distended, + bs, per pt has a left side- internal PD catheter ext no edema neuro- a,a, o x 3, moves, alert and appropriate Data 05/10/22 04:20 05/10/22 04:20 A&P Assessment and plan (1) Acute kidney injury superimposed on CKD: 51 yr old man 1. CKD stage 4- from DM,CRS 2. JESUS- recent diuresis. -urinalysis- 2+ protein, 1+ glu. 2+ blood, urine microalbumin/ cr 1095. -u pr /cr 2095 -ur na was 61 -renal us- rt 11.2 cm, left 11.1 cm- no hydronephrosis -check ck -creatinine improving- better than baseline -d/c ivf 3. hypercalcemia- pt was on high dose calcitriol and metolazone stop- improved w/ ivf, lasix, and calcitonin- monitor - -await pth rp, spep, UPEP is negative, fede levels 4. met alkalosis- from diuretics -improving -lactic acidosis- monitor 5. replace k, mag and phos 6. htn- bp improved- dec meds- amlodipine 5 mg d, metoprolol 12.5 bid 7. dm control per medicine 8. hgb 15 decreased to 11.1- he was likely dry meds reviewed seen and examined w/ RN - telehealth visit informed consent obtained from pt and his time spent 30 minutes Plan see above- Attestations Medical Necessity Statement*: improving jesus -replete electrolytes as needed cp per medicine d/c per medicine Time Spent in Patient Care: 16 - 35 minutes (>than 50% of time spent in counselling and/or direct pt care on unit) . Coding Level of Care Code Acute Stage Director for Aaron Fwmissy Diagnoses Acute kidney injury superimposed on CKD N17.9; N18.9
[2022-05-10 06:56] LABS: Potassium 2.8 mmol/L (3.5-5.1)
[2022-05-10] MEDS: citalopram 20 mg Tablet 40 MG PO (08:58)
[2022-05-10] MEDS: pantoprazole DR 40 mg Tablet PO (08:58)
[2022-05-10] MEDS: apixaban 5 mg Tablet 2.5 MG PO ×2 (08:58→17:00)
[2022-05-10] MEDS: docusate sodium 100 mg Capsule PO ×2 (08:59→16:59)
[2022-05-10] MEDS: BuSPIRONE 10 mg Tablet 5 MG PO ×3 (08:59→21:35)
--- NOTE | 2022-05-10 09:15 | ECG_ITS ---
[facility] Test Date: 2022-05-10 Pat Name: Rei Queen Department: Room: 256 Gender: Male Sample Display Preparer: CARMEN: 1970 Requested By: Esmer Hunter Order Number: [id number] Pena MD: Garrison Mckinney M.D. Measurements Intervals [place] Rate: 58 P: 0 AK: 172 QRS: -5 QRSD: 109 T: 30 QT: 426 QTc: 421 Interpretive Statements SINUS BRADYCARDIA POSSIBLE ANTERIOR MYOCARDIAL INFARCTION , OF INDETERMINATE AGE [30 ms Q WAVE IN V3/V4, OR R < 0.2 mV IN V4] Compared to ECG 05/10/2022 00:44:59 Sinus rhythm no longer present Myocardial infarct finding still present Electronically Signed On 05-10-2022 12:57:00 NOTE TAKER by Garrison Mckinney M.D. [id number]
[2022-05-10 09:23] LABS: Glucose Point of Care 97 mg/dL (70-110)
[2022-05-10] MEDS: amlodipine 5 mg Tablet PO (10:39)
--- NOTE | 2022-05-10 10:54 | USCV_ITS ---
Rei Queen Age: 51 Gender: M : 1970 Exam Date: 05/10/2022 11:43 Ordering Phys: Esmer Hunter MD Technologist: Amadou Thompson Exam Location: [facility] [place] Indication: WALL MOTION BP: 132 / 72 HR: 59 Rhythm: Sinus Technical Quality: Adequate MEASUREMENTS (Male / Female) Normal Values 2D ECHO LV Ejection Fraction MOD 2C 16.3 % LV Ejection Fraction 2C AL 17.2 % FINDINGS Left Ventricle Right Ventricle Right Atrium Left Atrium Mitral Valve Aortic Valve Tricuspid Valve Pulmonic Valve Pericardium Aorta IVC CONCLUSIONS Contrast echo was done with [employer]. Study quality is very poor. Ejection fraction is estimated to be 31% Recommend a MUGA scan to better evaluate the ejection fraction Dr Karen Choi MD [facility] (Electronically Signed) Final Date: 11 May 2022 12:22 S
[2022-05-10 10:58] LABS: Troponin(5th) Baseline 48 ng/L (0-15)
[2022-05-10] MEDS: magnesium sulfate premix 2 GM/50 ML PIGGYBACK IV (11:16)
[2022-05-10] MEDS: lidocaine 1% 5 ML in potassium chloride premix 100 ML 50 ML IV (11:22)
--- NOTE | 2022-05-10 11:44 | ECG_ITS ---
[facility] Test Date: 2022-05-10 Pat Name: Rei Queen Department: Room: 256 Gender: Male Location Manager: : 1970 Requested By: Esmer Hunter Order Number: [id number] Becky MD: Garrison Mckinney M.D. Measurements Intervals [place] Rate: 60 P: -1 TX: 177 QRS: -2 QRSD: 114 T: 37 QT: 401 QTc: 401 Interpretive Statements SINUS RHYTHM ANTERIOR MYOCARDIAL INFARCTION , AGE INDETERMINATE[40+ ms Q WAVE AND/OR ST/T ABNORMALITY IN V3/V4] Compared to ECG 05/10/2022 09:15:05 Sinus bradycardia no longer present Myocardial infarct finding still present Electronically Signed On 05-10-2022 12:57:42 MATRIX DRIER TENDER by Garrison Mckinney M.D. [id number]
[2022-05-10] MEDS: perflutren protein-a microsphr 0.22 mg/mL SDV 3 mL IV (12:16)
[2022-05-10 12:31] LABS: Glucose Point of Care 166 mg/dL (70-110)
--- NOTE | 2022-05-10 12:38 | P.PN_ITS ---
Subjective Subjective: seen this am he states he has been having chest pains for few weeks before coming to hospital. says he has been using nitro tablets. sometimes its worse on exertion and occurs at rest. he describes the pain going from chest to left arm and into jaw he has 4 stents placed in past, has hx of pericardial effusion last few days in hospital, he did not complain of any pain in chest but now says he was having it on and off all along but just did not want to report to the doctor or the nurse. Vitals/I&O/Wt Last Vital Signs Temp 97.6 F 05/10/22 08:00 Pulse 76 05/10/22 08:45 Resp 18 05/10/22 08:00 BP 163/76 05/10/22 08:45 Pulse Ox 97 05/10/22 08:00 O2 Del Method 05/10/22 03:55 O2 Flow Rate 2 05/10/22 08:00 05/09/22 05/10/22 05/10/22 22:59 06:59 14:59 Intake Total 240 / 1303.667 480 / 1783.667 50 / 50 Balance 240 / 1303.667 480 / 1783.667 50 / 50 Physical Exam Narrative: General: No acute distress, AO x3, appears older than age, chrornically ill appearing. feels better today and looks better as well, on 2L NC HEENT: EOMI. Chest: Clear to auscultation bilaterally no wheezes or rhonchi present. CVS: S1-S2 regular, no tachycardia, no gallops, no rubs Abdomen: Soft, nontender, bowel sounds present Neuro: Moves all 4 extremities. Extremities: no edema, clubbing or cyanosis Data 05/10/22 04:20 05/10/22 04:20 A&P Assessment and plan (1) Hypercalcemia: (2) Syncope: (3) Orthostatic hypotension: (4) Elevated troponin: (5) Chronic systolic heart failure: (6) Acute kidney injury superimposed on CKD: Plan Chest Pain Syncopal episodes at home most likely 2/2 orthostatic hypotension JESUS on CKD stage 4 Hypercalemia Metabolic alkalosis HTN Diabetes mellitus Orthostatic hypotension Hx of CAD s/p PCI and stents Hx of cardiac arrest, Hx of pericardial effusion s/p open pericardectomy - Presented with gen fatigue, reccurant syncopal episodes over last 2 weeks. Was orthostatic positive at admission. Was supposed to be starting PD soon however hasn't done so yet. Was on calcitriol and metolazone at home. Nephrology has been following. Electrolytes are better and JESUS is improving. Nephro standpoint, pt may be able to dc with f/u outpatient - Now complains of chest pain that he says has been present from before presenting to the hospital. Troponins ordered. 1st baseline trop 45. 2 hour and 6 hour pending. EKG did not show acute ischemic changes. - Imdur and ranexa to restart today. They were held since admission. - Echo done few days prior had poor windows. Echo from mar 2021 showed EF 35%. WIll repeat echo limited today with contrast. - Continue amlodipine, and metoprolol. Hold hydralazine for now. - Nephrology following. Appreciate recommendations. - Consult cardiology. Will await further recs. - Recent carotid doppler 02/2022: no significant ICA stenosis - Respiratory viral panel is negative - Mag low today, K low today. Will replete. - Recheck labs at 6 pm. 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 Cardiology consulted. He will need continued hospitalization for workup and management of the same. Coding Level of Care Code Acute Mushroom Growing Supervisor for Chg Fwd Diagnoses Hypercalcemia E83.52 Syncope R55 Orthostatic hypotension I95.1 Elevated troponin R77.8 Chronic systolic heart failure I50.22 Acute kidney injury superimposed on CKD N17.9; N18.9
[2022-05-10 12:56] LABS: Troponin 5 2HR 48.71 ng/L (0-15)
[2022-05-10 12:59] LABS: Troponin 5 2HR Delta 0.71 ABS# (0-10)
[2022-05-10] MEDS: acetaminophen 325 mg Tablet 650 MG PO ×2 (14:45→21:34)
--- NOTE | 2022-05-10 15:20 | ECG_ITS ---
[facility] Test Date: 2022-05-10 Pat Name: Rei Queen Department: Room: 256 Gender: Male Contact Center Assistant: : 1970 Requested By: Esmer Hunter Order Number: [id number] Becky MD: Garrison Mckinney M.D. Measurements Intervals [place] Rate: 57 P: 16 ID: 172 QRS: -7 QRSD: 107 T: 34 QT: 427 QTc: 419 Interpretive Statements SINUS BRADYCARDIA POSSIBLE ANTERIOR MYOCARDIAL INFARCTION , OF INDETERMINATE AGE [30 ms Q WAVE IN V3/V4, OR R < 0.2 mV IN V4] Compared to ECG 05/10/2022 11:44:55 Sinus rhythm no longer present Myocardial infarct finding still present Electronically Signed On 05-11-2022 7:51:35 DIRECTOR ELECTRICAL ENGINEERING by Garrison Mckinney M.D. [id number]
[2022-05-10 16:50] LABS: Troponin 5 6HR 44.82 ng/L (0-15)
[2022-05-10 16:51] LABS: Troponin 5 6HR Delta -3.18 ng/L (0-12)
[2022-05-10 16:53] LABS: Alanine Aminotransferase 8 U/L (0-41); Albumin Level 2.9 g/dL (3.5-5.2); Alkaline Phosphatase 92 U/L (40-130); Anion Gap 8.5 (5-19); Aspartate Amino Transferase 11 U/L (0-40); Blood Urea Nitrogen 40 mg/dL (6-20); Calcium 9.2 mg/dL (8.5-10.5); Carbon Dioxide 32 mmol/L (22-29); Chloride 102 mmol/L (98-107); Globulin 2.6 g/dL (1.3-4.6); Glomerular Filtration Rate 21.2 mL/min (90-130); Glucose 166 mg/dL (65-115); Magnesium 1.8 mg/dL (1.7-2.3); Osmolality Calculated 302 mOsm/kg (285-295); Potassium 3.5 mmol/L (3.5-5.1); Sodium 139 mmol/L (136-145); Total Bilirubin 0.2 mg/dL (0.15-1.2); Total Protein 5.5 g/dL (6.6-8.7)
[2022-05-10] MEDS: isosorbide mononitrate ER 30 mg Tablet PO ×2 (16:59→17:00)
[2022-05-10] MEDS: ranolazine (12HR) 500 mg Tablet PO ×2 (17:00)
--- NOTE | 2022-05-10 18:55 | PM.CONSULT ---
Providers/Reason For Consult Consulting Physician/Specialty*: Debi Choi MD /cardiology Reason for Consult*: Chest pain/history of CAD/multiple medical problems Attending Physician: Esmer Hunter MD Primary Care Provider: Kp Montanez DO History of Present Illness History of Present Illness Rei Queen II is a 51 year old male with a history of multiple medical problems including chronic chest pains, he is present with complaints of generalized weakness, dizziness, near syncopal/syncopal episodes. Patient was found to have severe orthostatic hypotension on the day of hospital admission. Since then, he has significant improvement of the symptoms. The primary was plan to discharge this patient home. But he started having chest pain again and for that reason, the discharge was held and the consult was requested. This patient is known to have chronic chest pains. He had multiple angiograms in the past. The most recent angiogram was in December 2020. He was found to have patent stents with no significant obstructive disease. It was opted to treat him medically. He has more or less similar type of chest pains all the time. The frequency and the duration may change. He came to the hospital mainly because of the progressive weakness and frequent near syncopal/syncopal episodes. He has no significant arrhythmias on the monitor. He is standing her blood pressure was 70, systolic in the emergency room. The most recent standing her blood pressure is around 110, systolic. Patient seems to be forgetful. The reliability of his history also is questionable. This patient is known to have chronic kidney disease. He had a recent dialysis catheter placement in anticipation of dialysis in the near future. He is known to have pulmonary embolism and Port-A-Cath thrombosis. He is on long-term oral anticoagulation. He has a history of cardiac tamponade, pericardiotomy, cardiac arrest, compartment syndrome secondary to spontaneous bleed in the lower extremity, extensive fasciotomy requiring prolonged rehabilitation, and multiple other medical problems. Chest pain is left-sided, moderate intensity, no associated symptoms of nausea or vomiting. No sweating or palpitations. It may last anywhere from few seconds to few minutes. He had a few episodes of chest pain today. The nitroglycerin does not seem to be helping the pain. He is wondering whether he can take some other kind of pain medications. Review of Systems Narrative: CONSTITUTIONAL: No fever or chills. EYES: No blurring of vision or other visual disturbances lately. ENT: No hoarseness of voice, auditory disturbances or sore throat. CARDIOVASCULAR: As mentioned above. RESPIRATORY: No significant cough. GASTROINTESTINAL: No hematemesis or melena. GENITOURINARY: Chronic kidney disease INTEGUMENTARY: No skin rashes or history of skin cancer. NEURO: No transient ischemic attacks or amaurosis. PSYCHIATRIC: Anxiety/depressive illness HEMATOLOGIC: No bleeding disorders or significant anemia. ENDOCRINE: Insulin requiring diabetes MUSCULOSKELETAL: As mentioned above ALLERGY/IMMUNOLOGY: As mentioned above. Medications/Allergies Home Medications Medication Instructions Recorded Confirmed Last Taken Type aspirin 81 mg tablet,delayed 81 mg PO DAILY@0600 06/01/19 05/06/22 05/05/22 History release dulaglutide 0.75 mg/0.5 mL 0.75 mg SUBCUT Q7D 06/01/19 05/06/22 05/05/22 History subcutaneous pen injector (Trulicity) multivitamin (Daily Multi-Vitamin 1 tab PO QPM 06/01/19 05/06/22 05/05/22 History tablet) cyclobenzaprine 10 mg tablet 10 mg PO TID PRN MUSCLE SPASMS 01/07/20 05/06/22 04/25/22 History insulin lispro 100 unit/mL See Rx Instructions .Route 09/25/20 05/06/22 04/25/22 History subcutaneous solution (Humalog .COMPLEX see pharmacy comments U-100 Insulin) nitroglycerin 0.4 mg sublingual 0.4 mg sublingual Q5M PRN Chest 10/10/20 05/06/22 04/25/22 Rx tablet (Nitrostat) Pain #25 tabs levothyroxine 88 mcg tablet 88 mcg PO QAM 02/09/21 05/06/22 05/05/22 History promethazine 25 mg tablet 25 mg PO Q6H PRN Pain 02/22/21 05/06/22 04/25/22 History amlodipine 5 mg tablet 5 mg PO DAILY #0 tabs 04/17/21 05/06/22 04/25/22 Rx metoprolol tartrate 50 mg tablet 25 mg PO BID@0600,1800 #0 tabs 04/17/21 05/06/22 04/25/22 Rx lidocaine 5 % topical patch 1 patch transdermal PRN PRN Pain 05/12/21 05/06/2204/25/22 History isosorbide mononitrate 30 mg 30 mg PO BID@0600,1800 #180 tabs 05/22/21 05/06/22 04/25/22 Rx tablet,extended release 24 hr bumetanide 2 mg tablet 4 mg PO TID 06/13/21 05/06/22 05/05/22 History metolazone 5 mg tablet 5 mg PO Q48H 06/13/21 05/06/22 05/05/22 History potassium chloride 20 mEq 20 meq PO DIRECTED 06/13/21 05/06/22 04/25/22 History tablet,extended release(part/cryst) docusate sodium 100 mg capsule 100 mg PO BID #30 caps 06/15/21 05/06/22 04/25/22 Rx (Colace) mupirocin 2 % topical ointment 1 applic topical BID 2 weeks #22 06/28/21 05/06/22 04/25/22 Rx grams apixaban 2.5 mg tablet (Eliquis) 2.5 mg PO BID 09/14/21 05/06/22 05/05/22 History insulin degludec 200 unit/mL (3 38 unit SUBCUT BEDTIME 12/11/21 05/06/22 05/05/22 History mL) subcutaneous pen (Tresiba FlexTouch U-200 insulin) atorvastatin 40 mg tablet 40 mg PO QAM #90 tabs 12/19/21 05/06/22 05/05/22 Rx mupirocin 2 % topical ointment 1 applic topical BID 2 weeks #22 12/25/21 05/06/22 04/25/22 Rx grams ranolazine 500 mg tablet,extended 500 mg PO BID #180 tabs 01/02/22 05/06/22 05/05/22 Rx release,12 hr (Ranexa) oxycodone 5 mg tablet 5 mg PO Q4H PRN pain #10 tabs 01/24/22 05/06/22 04/25/22 Rx bupropion HCl 300 mg 24 hr tablet, 300 mg PO QAM #30 tabs 03/01/22 05/06/22 05/05/22 Rx extended release (Wellbutrin XL) buspirone 5 mg tablet 5 mg PO TID #90 tabs 03/01/22 05/06/22 05/05/22 Rx citalopram 40 mg tablet 40 mg PO DAILY #30 tabs 03/01/22 05/06/22 04/25/22 Rx trazodone 100 mg tablet 400 mg PO BEDTIME PRN insomnia 03/01/22 05/06/22 04/25/22 Rx #120 tabs calcitriol 0.25 mcg capsule 0.25 mcg PO TID 05/06/22 05/06/22 05/05/22 History Allergies Allergy/AdvReac Type Severity Reaction Status Date / Time Iodinated Contrast Media Allergy Severe ALGY-Difficulty Verified 04/25/22 09:08 Breathing iodine Allergy Severe ALGY-Difficulty Verified 04/25/22 09:08 Breathing metoclopramide [From Reglan] Allergy Severe ALGY-Difficulty Verified 04/25/22 09:08 Breathing nalbuphine [From Nubain] Allergy Severe ADR-Diarrhe Verified 04/25/22 09:08 a naproxen [From Naprosyn] Allergy Severe ADR-Vomitin Verified 04/25/22 09:08 g Sulfa (Sulfonamide Allergy Severe ALGY-Difficulty Verified 04/25/22 09:08 Antibiotics) Breathing ketorolac Allergy Intermediate ADR-Nausea Verified 04/25/22 09:08 ondansetron [From Zofran] Allergy Intermediate ADR-Abdominal Verified 04/25/22 09:08 Pain prochlorperazine Allergy Intermediate ADR-Irritab Verified 04/25/22 09:08 [From Compazine] le codeine AdvReac Severe ALGY-Anaphy Verified 04/25/22 09:08 laxis haloperidol [From Haldol] AdvReac Intermediate ADR-Irritab Verified 04/25/22 09:08 le Current Medications Generic Name Dose Route Start Last Admin Trade Name Freq PRN Reason Stop Dose Admin Acetaminophen 650 mg 05/06/22 17:36 05/10/22 14:45 Acetaminophen 325 Mg Tablet PO 650 mg Q6H PRN Administration Mild/Mod Pain Or Temp >/= 101 Amlodipine Besylate 5 mg 05/07/22 09:00 05/10/22 10:39 Amlodipine 5 Mg Tablet PO 5 mg DAILY RANDY Administration Apixaban 2.5 mg 05/07/22 09:00 05/10/22 17:00 Apixaban 5 Mg Tablet PO 2.5 mg BID RANDY Administration Aspirin 81 mg 05/07/22 06:00 05/10/22 05:19 Aspirin 81 Mg Ec Tablet PO 81 mg DAILY@0600 RANDY Administration Atorvastatin Calcium 40 mg 05/07/22 06:00 05/10/22 05:19 Atorvastatin 40 Mg Tablet PO 40 mg QAM RANDY Administration Bupropion HCl 300 mg 05/07/22 06:00 05/10/22 05:19 Bupropion Xl (24 Hr) 300 Mg Tablet PO 300 mg QAM RANDY Administration Buspirone HCl 5 mg 05/06/22 21:00 05/10/22 14:45 Buspirone 10 Mg Tablet PO 5 mg TID [facility] Administration Citalopram Hydrobromide 40 mg 05/07/22 09:00 05/10/22 08:58 Citalopram 20 Mg Tablet PO 40 mg DAILY RANDY Administration Docusate Sodium 100 mg 05/06/22 18:00 05/10/22 16:59 Docusate Sodium 100 Mg Capsule PO 100 mg BID RANDY Administration Isosorbide Mononitrate 30 mg 05/06/22 18:00 05/10/22 17:00 Isosorbide Mononitrate Er 30 Mg Tablet PO 30 mg BID@0600,1800 [facility] Administration Levothyroxine Sodium 88 mcg 05/07/22 06:00 05/10/22 05:19 Levothyroxine 88 Mcg Tablet PO 88 mcg QAM [facility] Administration Metoprolol Tartrate 12.5 mg 05/09/22 18:00 05/10/22 16:59 Metoprolol Tartrate 25 Mg Tablet PO 12.5 mg BID@0600,1800 [facility] Administration Non-Formulary Medication 38 unit 05/06/22 21:00 05/09/22 23:11 Insulin Degludec [Tresiba Flextouch U-200] SUBCUT 38 unit BEDTIME RANDY Administration Pantoprazole Sodium 40 mg 05/07/22 09:00 05/10/22 08:[address] 40 Mg Tablet PO 40 mg DAILY RANDY Administration Promethazine HCl 25 mg 05/06/22 17:39 05/07/22 06:40 Promethazine 25 Mg Tablet PO 25 mg Q6H PRN Administration Pain Ranolazine 500 mg 05/06/22 18:00 05/10/22 17:00 Ranolazine (12hr) 500 Mg Tablet PO 500 mg BID RANDY Administration PFSH Acute PFSH: Medical History Acute on chronic congestive heart failure Anemia Atherosclerotic heart disease of hughes coronary artery with other forms of angina pectoris hx of CAD with prior stenting of proximal LAD, LCx, RCA Chronic anticoagulation Eliquis Chronic kidney disease -baseline Cr appears to be around 1.5 Chronic systolic heart failure EF=47%, diffuse LV hypokinesis, mildly increased LA size Depression Diabetes A1c-7.6 (08/2019) Foot drop, left GERD (gastroesophageal reflux disease) H/O acute myocardial infarction H/O deep venous thrombosis developed compartment syndrome Hyperlipidemia Hypertension Hypothyroidism Ischemic cardiomyopathy Major depressive disorder, recurrent severe without psychotic features Osteoarthritis of spine Surgical History H/O colonoscopy (11/14/20) 08/2015 H/O esophagogastroduodenoscopy (11/14/20) 08/2015 H/O removal of testicle left H/O skin graft H/O vasectomy History of appendectomy 1995 History of coronary artery stent placement 5x History of excision of mass 06/08/2019: Subcutaneous mass on back History of inguinal hernia repair, bilateral 1999 History of removal of Port-a-Cath Hx of cholecystectomy Peritoneal dialysis catheter in situ (06/15/21) Port-A-Cath in place Family History Grandfather Cancer skin cancer Parkinson disease Brother Hypertension Father Heart disease Mother Hypertension Stroke Aneurysm Grandmother Aneurysm Other Crohn disease Denies family history of Anesthesia complication Bleeding disorder Social History Smoking and tobacco status: never smoked Second hand smoke exposure: No Smoking risk assessment/counseling performed?: No Alcohol intake: former Year of sobriety/quit date alcohol: 2015 Former alcohol use details: Only holidays Desire information about alcohol rehabilitation?: No Counseling given: No Desire information about substance/drug rehabilitation?: No Counseling given: No Lives independently: Yes Household members: significant other Marital status: Single Current occupational status: disabled History of recent travel: No Vitals/I&O/Wt Last Vital Signs Temp 97.5 F L 05/10/22 12:00 Pulse 57 L 05/10/22 16:00 Resp 18 05/10/22 16:00 BP 144/75 05/10/22 16:00 Pulse Ox 91 05/10/22 16:00 O2 Del Method 05/10/22 16:00 O2 Flow Rate 2 05/10/22 08:00 05/10/22 05/10/22 05/10/22 06:59 14:59 22:59 Intake Total 480 / 4118.518 3283 / 1115 Output Total 200 / 200 Balance 480 / 9729.633 7937 / 1115 -200 / 915 Physical Exam Narrative: GENERAL: The patient is alert and oriented times three. Not in any acute distress. HEENT: No significant pallor, icterus or lymphadenopathy.Oral cavity: There are no mucous membrane lesions. NECK: Trachea appears to be central. No masses noted. No JVD or thyromegaly appreciated. RESPIRATORY: Chest is symmetrical. No intercostals muscle retraction or any accessory muscle activation. There is no chest wall tenderness. Breath sounds are heard bilaterally. No rales or rhonchi heard. No evidence of any consolidation. BREASTS: Deferred. HEART: The heart sounds are normal. No S3 or S4. Systolic murmur in the left sternal border. No diastolic murmurs. No pericardial rub ABDOMEN: No vessel pulsations or distention. No tenderness. No organomegaly appreciated. Bowel sounds are normally heard. : Deferred. RECTAL: Deferred. LYMPHATIC: No lymphadenopathy noted in the neck. EXTREMITIES: No edema or cyanosis. No clubbing. MUSCULOSKELETAL: No acute joint deformities or swelling SKIN: There are no significant rashes or ecchymosis NEUROPSYCHIATRIC: The patient is alert and oriented x3. Appears to be in a good mood. No tremors or rigidity noted. Data 05/10/22 04:20 05/10/22 16:20 Other Labs: Laboratory Last Values WBC 9.1 10^3/uL (4.0-10.0) 05/10/22 04:20 RBC 3.65 10^6/uL (4.1-5.3) L 05/10/22 04:20 Hgb 11.1 g/dL (11.7-16.6) L 05/10/22 04:20 Hct 33.8 % (42.0-52.0) L 05/10/22 04:20 MCV 92.6 fl (80-94) 05/10/22 04:20 MCH 30.4 pg (28.0-34.0) 05/10/22 04:20 MCHC 32.8 g/dL (30.0-36.0) 05/10/22 04:20 RDW 14.6 % (12.1-15.1) 05/10/22 04:20 Plt Count 260 10^3/cmm (130-400) 05/10/22 04:20 MPV 10.1 fL (7.4-10.4) 05/10/22 04:20 Neut % (Auto) 65.4 % 05/10/22 04:20 Lymph % (Auto) 23.4 % 05/10/22 04:20 Leon % (Auto) 7.4 % 05/10/22 04:20 Eos % (Auto) 2.6 % 05/10/22 04:20 Baso % (Auto) 0.9 % 05/10/22 04:20 Neut # (Auto) 5.94 10^3/uL (1.8-7.7) 05/10/22 04:20 Lymph # (Auto) 2.1 10^3/uL (0.8-4.8) 05/10/22 04:20 Leon # (Auto) 0.7 10^3/uL (0.2-0.9) 05/10/22 04:20 Eos # (Auto) 0.2 10^3/uL (0.0-0.8) 05/10/22 04:20 Baso # (Auto) 0.1 10^3/uL (0.0-0.1) 05/10/22 04:20 Nucleated RBC % (auto) 0 % 05/10/22 04:20 Nucleated RBCs # 0.0 /100WBC 05/10/22 04:20 D-Dimer 0.45 ug/mIFEU (0-0.59) 05/10/22 04:20 Sodium 139 mmol/L (136-145) 05/10/22 16:20 Potassium 3.5 mmol/L (3.5-5.1) 05/10/22 16:20 Chloride 102 mmol/L (98-107) 05/10/22 16:20 Carbon Dioxide 32 mmol/L (22-29) H 05/10/22 16:20 Anion Gap 8.5 (5-19) 05/10/22 16:20 BUN 40 mg/dL (6-20) H 05/10/22 16:20 Creatinine 3.1 mg/dL (0.7-1.2) H 05/10/22 16:20 GFR Calculation 21.2 mL/min (90-130) L 05/10/22 16:20 Glucose 166 mg/dL (65-115) H 05/10/22 16:20 POC Glucose 166 mg/dL (70-110) H 05/10/22 12:27 Calculated Osmolality 302 mOsm/kg (285-295) H 05/10/22 16:20 Lactate 2.4 mmol/L (0.5-2.2) H 05/06/22 16:16 Uric Acid 13.4 mg/dL (3.4-7.0) H 05/06/22 18:21 Calcium 9.2 mg/dL (8.5-10.5) 05/10/22 16:20 Phosphorus 2.3 mg/dL (2.5-4.5) L 05/10/22 04:20 Magnesium 1.8 mg/dL (1.7-2.3) 05/10/22 16:20 Total Bilirubin 0.2 mg/dL (0.15-1.2) 05/10/22 16:20 AST 11 U/L (0-40) 05/10/22 16:20 ALT 8 U/L (0-41) 05/10/22 16:20 Alkaline Phosphatase 92 U/L (40-130) 05/10/22 16:20 Troponin T Gen 5 ng/L 45 ng/L (0-15) H 05/10/22 04:20 Troponin T Baseline 48 ng/L (0-15) H 05/10/22 10:22 Troponin T 120 Minute 48.71 ng/L (0-15) H 05/10/22 12:25 Delta Troponin T 0.71 ABS# (0-10) 05/10/22 12:25 Troponin T Hi Sens 6Hr 44.82 ng/L (0-15) H 05/10/22 16:20 Troponin T Hi Sens 6Hr Delta -3.18 ng/L (0-12) L 05/10/22 16:20 Total Protein 5.5 g/dL (6.6-8.7) L 05/10/22 16:20 Albumin 2.9 g/dL (3.5-5.2) L 05/10/22 16:20 Globulin 2.6 g/dL (1.3-4.6) 05/10/22 16:20 Kmcss-1-Yorochkwl 0.4 g/dL (0.2-0.3) H 05/07/22 05:45 Yybcr-8-Eygywliux 0.7 g/dL (0.5-0.9) 05/07/22 05:45 Bwzx-6-Phacalzy 0.4 g/dL (0.4-0.6) 05/07/22 05:45 Eaxq-6-Ypxvixkx 0.3 g/dL (0.2-0.5) 05/07/22 05:45 Gamma Globulins 0.7 g/dL (0.8-1.7) L 05/07/22 05:45 Abnorm Protein Band 1 Not Reportable 05/07/22 05:45 Angiotensin Convert Enz 29 U/L (9-67) 05/08/22 14:30 25-OH Vitamin D Total 28 ng/mL (30-100) L 05/07/22 05:45 TSH 2.38 uIU/mL (0.27-4.20) 05/07/22 05:45 PTH Intact 14.0 pg/mL (15-65) L 05/07/22 05:45 Calcium (PTH Intact) 11.6 mg/dL (8.5-10.5) H 05/07/22 05:45 Urine Color Yellow (Yellow) 05/06/22 22:38 Urine Appearance Clear (CLEAR) 05/06/22 22:38 Urine pH 6 (5-7) 05/06/22 22:38 Ur Specific Enterprise 1.010 (1.005-1.030) 05/06/22 22:38 Urine Protein 2+ (Negative) H 05/06/22 22:38 Urine Glucose (UA) 1+ (Normal) H 05/06/22 22:38 Urine Ketones Negative (Negative) 05/06/22 22:38 Urine Blood 2+ (Negative) H 05/06/22 22:38 Urine Nitrate Negative (Negative) 05/06/22 22:38 Urine Bilirubin Neg (Negative) 05/06/22 22:38 Urine Urobilinogen Neg mg/dL (Negative) 05/06/22 22:38 Ur Leukocyte Esterase Negative (Negative) 05/06/22 22:38 Urine RBC 0-4 /hpf (0-2) H 05/06/22 22:38 Urine WBC 0-4 /hpf (0-5) H 05/06/22 22:38 Ur Squamous Epith Cells None /hpf (0-5) 05/06/22 22:38 Amorphous Sediment Not Reportable 05/06/22 22:38 Urine Bacteria None /hpf (NONE) 05/06/22 22:38 Ur Random Creatinine 42 mg/dL (20-320) 05/06/22 22:38 Ur Random Albumin 63 % 05/06/22 22:38 Ur Random Microalbumin 46 ug/dL (0-20) H 05/06/22 22:38 U Random Total Protein 75 mg/dL 05/06/22 22:38 U Random Total Protein 88 mg/dL (5-25) H 05/06/22 22:38 Ur Random Sodium 61 mmol/L 05/06/22 22:38 Ur Random Potassium 23 mmol/L 05/06/22 22:38 Ur Random Chloride 65 mmol/L 05/06/22 22:38 Urine Creatinine 42 mg/dL (39-259) 05/06/22 22:38 Microalb/Creat Ratio 1095 mg/dL (0-20) H 05/06/22 22:38 Protein/Creatinin Ratio 2095 mg/g creat (25-148) H 05/06/22 22:38 Protein/Creat Ratio 24h 2.095 (0.025-0.148) H 05/06/22 22:38 U Random z-7-Npuicqxm % 6 % 05/06/22 22:38 U Random u-0-Tgwqxkft % 9 % 05/06/22 22:38 U Random Beta Globulin 13 % 05/06/22 22:38 U Random Gamma Glob 9 % 05/06/22 22:38 U Abnormal Prot Band 1 Not Reportable 05/06/22 22:38 U Abnormal Prot Band 2 Not Reportable 05/07/22 05:45 U Abnormal Prot Band 3 Not Reportable 05/07/22 05:45 Urine PEP Interpret See note 05/06/22 22:38 Nasal Influ A H1 2009 PCR Not detected (NOT DETECT) 05/06/22 15:17 Pro Electrophoresis Int See note 05/07/22 05:45 Serum Immunofixation See note 05/07/22 05:45 Adenovirus (PCR) Not detected (NOT DETECT) 05/06/22 15:17 C. pneumoniae DNA (PCR) Not detected (NOT DETECT) 05/06/22 15:17 Coronavirus 229E (PCR) Not detected (NOT DETECT) 05/06/22 15:17 Hep Bs Antigen Non-reactive (Nonreactive) 05/07/22 05:45 Hep Bs Antibody < 3.5 (11.5-1000) L 05/07/22 05:45 Hep B Core Total Ab Non-reactive (Nonreactive) 05/07/22 05:45 Hepatitis C Antibody Non-reactive (Nonreactive) 05/07/22 05:45 Human Metapneumovir PCR Not detected (NOT DETECT) 05/06/22 15:17 Influenza A (H1) PCR Not detected (NOT DETECT) 05/06/22 15:17 Influenza A (H3) PCR Not detected (NOT DETECT) 05/06/22 15:17 Influenza Type A (PCR) Not detected (NOT DETECT) 05/06/22 15:17 Influenza Type B (PCR) Not detected (NOT DETECT) 05/06/22 15:17 M. pneumoniae (PCR) Not detected (NOT DETECT) 05/06/22 15:17 Parainfluenza 1 (PCR) Not detected (NOT DETECT) 05/06/22 15:17 Parainfluenza 2 (PCR) Not detected (NOT DETECT) 05/06/22 15:17 Parainfluenza 3 (PCR) Not detected (NOT DETECT) 05/06/22 15:17 Parainfluenza 4 (PCR) Not detected (NOT DETECT) 05/06/22 15:17 RSV Type A (PCR) Not detected (NOT DETECT) 05/06/22 15:17 RSV Type B (PCR) Not detected (NOT DETECT) 05/06/22 15:17 Entero/Rhino (PCR) Not detected (NOT DETECT) 05/06/22 15:17 SARS-CoV-2 (PCR) Not detected (NOT DETECT) 05/06/22 15:17 Echo: My impression: No cardiogram on 05/06/2022 Technically limited quality echocardiogram because of poor ?ultrasonic windows. ?LV systolic function is moderately reduced with EF of 35 to 40%. ?Regional wall motion abnormalities cannot be accurately assessed ?because of poor ultrasonic windows. ?Grade 1 diastolic dysfunction ?RV appears to be grossly hypokinetic. ?Mild tricuspid regurgitation ?Compared to prior echocardiogram from 2020, no significant ?changes are seen. EKG 1: My Interpretation: Normal sinus rhythm with a rate of 82 beats per. Poor R wave progression. Some nonspecific ST-T changes. EKG 2: My Interpretation: The EKG from today revealed a sinus bradycardia with a poor R wave progression. Diffuse nonspecific ST-T changes. Possible old inferior wall SC. A&P Assessment and plan (1) Atypical chest pain: The patient chest pain is chronic and atypical. The EKG changes are nonspecific. It is extremely difficult to discern the patient's pain in view of the chronic nature, multiple comorbidities and multiple angiograms in the past revealing no obstructive disease. The most recent cardiac catheterization was in December 2020. His slightly elevated troponin T, related to type II SC. For further evaluation of the symptoms, a Myocardial perfusion imaging would be appropriate. Patient may be scheduled for a Lexiscan/sestamibi/sestamibi stress test in the morning. In the meanwhile, he may be continued on the current medications. (2) Orthostatic hypotension: The orthostatic hypotension is improving. We will continue on the current management. (3) Acute kidney injury superimposed on CKD: Management as per the nephrology. (4) Hypertension: Blood pressure seems to be fairly under control. May continue on the current management. (5) Chronic systolic heart failure: Currently the heart failure is compensated. Plan Based on the results of the Myocardial perfusion imaging, further recommendations will be made. Thank you for the opportunity to evaluate this patient and make these recommendations Consult Attestations Medical Necessity Statement: Patient requires continued hospital stay for close monitoring and further management Coding Level of Care Code Acute Spotter Driver for Aaron Irene History Detailed Medical Decision Making Moderate Complexity Diagnoses Atypical chest pain R07.89 Orthostatic hypotension I95.1 Acute kidney injury superimposed on CKD N17.9; N18.9 Hypertension I10 Chronic systolic heart failure I50.22
[2022-05-10 21:27] LABS: Glucose Point of Care 251 mg/dL (70-110)
[2022-05-10] MEDS: trazodone 100 mg Tablet 400 MG PO (21:34)
[2022-05-10] MEDS: NON-FORMULARY MEDICATION (Insulin Degludec [Tresiba Flextouch U-200] 200 unit/mL (3 mL) in 38 EACH SUBCUT (21:34)
[2022-05-11 03:53] VITALS: BP 119/67; PULSE 54; RESP 20; TEMP 36.4; O2SAT 93
[2022-05-11 04:06] LABS: Basophils # 0.1 10^3/uL (0.0-0.1); Basophils % 1.1 %; Eosinophils # 0.3 10^3/uL (0.0-0.8); Eosinophils % 3.4 %; Hematocrit 32.4 % (42.0-52.0); Hemoglobin 10.8 g/dL (11.7-16.6); Lymphocytes % 25.9 %; Mean Corpuscular HGB Conc 33.3 g/dL (30.0-36.0); Mean Corpuscular Hemoglobin 31.5 pg (28.0-34.0); Mean Corpuscular Volume 94.5 fl (80-94); Monocytes # 0.7 10^3/uL (0.2-0.9); Monocytes % 9.2 %; Neutrophils # 4.54 10^3/uL (1.8-7.7); Neutrophils % 59.9 %; Nucleated Red Blood Cells % 0 %; Platelet Count 220 10^3/cmm (130-400); Red Blood Count 3.43 10^6/uL (4.1-5.3); Red Cell Distribution Width 14.7 % (12.1-15.1); White Blood Count 7.6 10^3/uL (4.0-10.0)
[2022-05-11 04:32] LABS: Alanine Aminotransferase 6 U/L (0-41); Albumin Level 2.7 g/dL (3.5-5.2); Alkaline Phosphatase 85 U/L (40-130); Blood Urea Nitrogen 40 mg/dL (6-20); Calcium 8.9 mg/dL (8.5-10.5); Carbon Dioxide 27 mmol/L (22-29); Chloride 100 mmol/L (98-107); Globulin 2.7 g/dL (1.3-4.6); Glomerular Filtration Rate 19.7 mL/min (90-130); Glucose 196 mg/dL (65-115); Magnesium 1.8 mg/dL (1.7-2.3); Osmolality Calculated 299 mOsm/kg (285-295); Phosphorus 2.9 mg/dL (2.5-4.5); Sodium 137 mmol/L (136-145); Total Bilirubin 0.2 mg/dL (0.15-1.2); Total Protein 5.4 g/dL (6.6-8.7)
[2022-05-11 04:33] LABS: Anion Gap 13.3 (5-19)
[2022-05-11 04:34] LABS: Aspartate Amino Transferase 13 U/L (0-40); Potassium 3.3 mmol/L (3.5-5.1)
[2022-05-11] MEDS: atorvastatin 40 mg Tablet PO (06:06)
[2022-05-11] MEDS: aspirin 81 mg EC Tablet PO (06:06)
[2022-05-11] MEDS: levothyroxine 88 mcg Tablet PO (06:06)
[2022-05-11] MEDS: isosorbide mononitrate ER 30 mg Tablet PO (06:06)
[2022-05-11] MEDS: buPROPion XL (24 HR) 300 mg Tablet PO (06:06)
[2022-05-11] MEDS: metoprolol tartrate 25 mg Tablet 12.5 MG PO (06:08)
[2022-05-11 06:43] LABS: Glucose Point of Care 170 mg/dL (70-110)
--- NOTE | 2022-05-11 07:34 | PC.SOCIAL ---
IMM Update pg 2 of IMM updated and reviewed w/ patient. Copy provided and copy in chart dated and initialed.
[2022-05-11 08:00] VITALS: BP 116/56; BP 123/58; BP 134/67; PULSE 55; PULSE 58; PULSE 60; RESP 16; TEMP 36.6; O2SAT 93
[2022-05-11] MEDS: pantoprazole DR 40 mg Tablet PO (08:48)
[2022-05-11] MEDS: ranolazine (12HR) 500 mg Tablet PO (08:48)
[2022-05-11] MEDS: BuSPIRONE 10 mg Tablet 5 MG PO ×2 (08:48→16:10)
[2022-05-11] MEDS: docusate sodium 100 mg Capsule PO (08:48)
[2022-05-11] MEDS: citalopram 20 mg Tablet 40 MG PO (08:48)
[2022-05-11] MEDS: amlodipine 5 mg Tablet PO (08:51)
[2022-05-11] MEDS: apixaban 5 mg Tablet 2.5 MG PO (08:51)
--- NOTE | 2022-05-11 10:24 | PM.DCS ---
Discharge Providers Date of Admission: 05/06/22 17:00 Date of Discharge: May 11, 2022 Attending Provider at Admission: Nancy Watson MD Attending Provider at Discharge: Esmer Hunter MD Primary Care Provider: Kp Montanez DO Diagnoses at Discharge Discharge Diagnosis (1) Atypical chest pain: Status: Acute (2) Orthostatic hypotension: Status: Acute (3) Acute kidney injury superimposed on CKD: Status: Acute (4) Hypertension: Status: Acute (5) Chronic systolic heart failure: Status: Chronic Permanent problem details: The current echocardiogram revealed LV ejection fraction of 35 to 40% Reason for Visit Reason for Visit: fall, weak Brief History: As per Dr. Watson Rei Queen II is a 51 year old male with a PMH CKD, anticipated to start on PD for which he had PD access made in 01/2022, however has not yet started. Per patient PD not approved until 5 GFR numbers less than 20. He presents now c/o generalized weakness, recurrent episodes of syncope and falls over past 2 weeks. he is also experiencing chest pain both with exertion and at rest. Episodes of syncope happen without warning. He denies any preceding dizziness, nausea vomiting. Endorses skipped beats . In the ER lying BP is 179/92 mmHg, on standing up in the ER was noted to be 70 systolic. No corresposing tachycardia. Denies any recent changes in his medications. H/o URI 2 weeks ago with running nose, cough, sore throat Pertinent diagnostics : CXR : No consolidation. Baseline troponin 79, Ekg sinus rhythm, possible left atrial enlargement. Hypercalcemia, Ca 13.7. Hospital Course Hospital Course - Presented with gen fatigue, reccurant syncopal episodes over last 2 weeks. Was orthostatic positive at admission. Was supposed to be starting PD soon however hasn't done so yet. Was on calcitriol and metolazone at home. Nephrology has been following. Electrolytes are better and JESUS is improving. Nephro standpoint, pt may be able to dc with f/u outpatient -Plan complains of chest pain that he says has been present from before presenting to the hospital. Troponins reviewed. EKG did not show acute ischemic changes. Patient was seen by cardiology. He has chronic chest pain and cardiology is very familiar with it. He has had several angiograms done in the past as well. Patient already on Imdur and Ranexa. Cardiology has suggested to do an outpatient stress test which the patient is agreeable to. -Please see cardiology consult note for further details. From renal aspect. Patient's medications were adjusted after discussion with nephrology patient to follow-up with his leave coordinator as an outpatient with labs to do weekly for 3 weeks. He will follow-up with cardiology outpatient as well. Physical Exam Narrative: General: No acute distress, AO x3, appears older than age, chrornically ill appearing. feels better today and looks better as well, on 2L NC HEENT: EOMI. Chest: Clear to auscultation bilaterally no wheezes or rhonchi present. CVS: S1-S2 regular, no tachycardia, no gallops, no rubs Abdomen: Soft, nontender, bowel sounds present Neuro: Moves all 4 extremities. Extremities: no edema, clubbing or cyanosis Discharge Data Studies Completed and Pending Completed Studies During Hospitalization Category Date Time Status XR chest 1V portable [id number] Stat Exams 05/06/22 15:31 Completed XR knee RT 3V* [id number] Stat Exams 05/06/22 15:34 Completed CV. echo complete* [id number] Routine Ultrasound 05/07/22 13:34 Completed US renal BI* [id number] Routine Ultrasound 05/06/22 19:51 Completed Pending at discharge Category Date Time Status Comprehensive Metabolic Panel AM LABS Lab 05/12/22 04:00 Ordered Magnesium AM LABS Lab 05/12/22 04:00 Ordered PTH Related Peptide (Protein) Routine Lab 05/07/22 13:20 Received Phosphorus AM LABS Lab 05/12/22 04:00 Ordered CV. echo lmt w/w contras [id number] Routine Ultrasound 05/10/22 10:54 Taken Radiology Impressions Chest X-Ray 05/06/22 15:31 IMPRESSION: 1. Atelectasis versus fibrosis at the lung bases. No consolidative pulmonary infiltrate noted. 2. There is no interval change from the prior examination. Knee X-Ray 05/06/22 15:34 IMPRESSION: 1. No acute abnormality demonstrated. 2. There is no interval change from the prior examination. Renal Ultrasound 05/06/22 19:51 IMPRESSION: No acute renal abnormality noted. No hydronephrosis. Laboratory Results WBC 7.6 10^3/uL (4.0-10.0) 05/11/22 03:35 RBC 3.43 10^6/uL (4.1-5.3) L 05/11/22 03:35 Hgb 10.8 g/dL (11.7-16.6) L 05/11/22 03:35 Hct 32.4 % (42.0-52.0) L 05/11/22 03:35 MCV 94.5 fl (80-94) H 05/11/22 03:35 MCH 31.5 pg (28.0-34.0) 05/11/22 03:35 MCHC 33.3 g/dL (30.0-36.0) 05/11/22 03:35 RDW 14.7 % (12.1-15.1) 05/11/22 03:35 Plt Count 220 10^3/cmm (130-400) 05/11/22 03:35 MPV 10.0 fL (7.4-10.4) 05/11/22 03:35 Neut % (Auto) 59.9 % 05/11/22 03:35 Lymph % (Auto) 25.9 % 05/11/22 03:35 [place] % (Auto) 9.2 % 05/11/22 03:35 Eos % (Auto) 3.4 % 05/11/22 03:35 Baso % (Auto) 1.1 % 05/11/22 03:35 Neut # (Auto) 4.54 10^3/uL (1.8-7.7) 05/11/22 03:35 Lymph # (Auto) 2.0 10^3/uL (0.8-4.8) 05/11/22 03:35 [place] # (Auto) 0.7 10^3/uL (0.2-0.9) 05/11/22 03:35 Eos # (Auto) 0.3 10^3/uL (0.0-0.8) 05/11/22 03:35 Baso # (Auto) 0.1 10^3/uL (0.0-0.1) 05/11/22 03:35 Nucleated RBC % (auto) 0 % 05/11/22 03:35 Nucleated RBCs # 0.0 /100WBC 05/11/22 03:35 D-Dimer 0.45 ug/mIFEU (0-0.59) 05/10/22 04:20 Sodium 137 mmol/L (136-145) 05/11/22 03:35 Potassium 3.3 mmol/L (3.5-5.1) L 05/11/22 03:35 Chloride 100 mmol/L (98-107) 05/11/22 03:35 Carbon Dioxide 27 mmol/L (22-29) 05/11/22 03:35 Anion Gap 13.3 (5-19) 05/11/22 03:35 BUN 40 mg/dL (6-20) H 05/11/22 03:35 Creatinine 3.3 mg/dL (0.7-1.2) H 05/11/22 03:35 GFR Calculation 19.7 mL/min (90-130) L 05/11/22 03:35 Glucose 196 mg/dL (65-115) H 05/11/22 03:35 POC Glucose 170 mg/dL (70-110) H 05/11/22 06:32 Calculated Osmolality 299 mOsm/kg (285-295) H 05/11/22 03:35 Lactate 2.4 mmol/L (0.5-2.2) H 05/06/22 16:16 Uric Acid 13.4 mg/dL (3.4-7.0) H 05/06/22 18:21 Calcium 8.9 mg/dL (8.5-10.5) 05/11/22 03:35 Phosphorus 2.9 mg/dL (2.5-4.5) 05/11/22 03:35 Magnesium 1.8 mg/dL (1.7-2.3) 05/11/22 03:35 Total Bilirubin 0.2 mg/dL (0.15-1.2) 05/11/22 03:35 AST 13 U/L (0-40) 05/11/22 03:35 ALT 6 U/L (0-41) 05/11/22 03:35 Alkaline Phosphatase 85 U/L (40-130) 05/11/22 03:35 Troponin T Gen 5 ng/L 45 ng/L (0-15) H 05/10/22 04:20 Troponin T Baseline 48 ng/L (0-15) H 05/10/22 10:22 Troponin T 120 Minute 48.71 ng/L (0-15) H 05/10/22 12:25 Delta Troponin T 0.71 ABS# (0-10) 05/10/22 12:25 Troponin T Hi Sens 6Hr 44.82 ng/L (0-15) H 05/10/22 16:20 Troponin T Hi Sens 6Hr Delta -3.18 ng/L (0-12) L 05/10/22 16:20 Total Protein 5.4 g/dL (6.6-8.7) L 05/11/22 03:35 Albumin 2.7 g/dL (3.5-5.2) L 05/11/22 03:35 Globulin 2.7 g/dL (1.3-4.6) 05/11/22 03:35 Getib-1-Pfejrzplk 0.4 g/dL (0.2-0.3) H 05/07/22 05:45 Tzuqr-3-Pfhvsdvdo 0.7 g/dL (0.5-0.9) 05/07/22 05:45 Ziyi-3-Zjauiymq 0.4 g/dL (0.4-0.6) 05/07/22 05:45 Bguw-5-Daferbrk 0.3 g/dL (0.2-0.5) 05/07/22 05:45 Gamma Globulins 0.7 g/dL (0.8-1.7) L 05/07/22 05:45 Abnorm Protein Band 1 Not Reportable 05/07/22 05:45 Angiotensin Convert Enz 29 U/L (9-67) 05/08/22 14:30 25-OH Vitamin D Total 28 ng/mL (30-100) L 05/07/22 05:45 TSH 2.38 uIU/mL (0.27-4.20) 05/07/22 05:45 PTH Intact 14.0 pg/mL (15-65) L 05/07/22 05:45 Calcium (PTH Intact) 11.6 mg/dL (8.5-10.5) H 05/07/22 05:45 Urine Color Yellow (Yellow) 05/06/22 22:38 Urine Appearance Clear (CLEAR) 05/06/22 22:38 Urine pH 6 (5-7) 05/06/22 22:38 Ur Specific [place] 1.010 (1.005-1.030) 05/06/22 22:38 Urine Protein 2+ (Negative) H 05/06/22 22:38 Urine Glucose (UA) 1+ (Normal) H 05/06/22 22:38 Urine Ketones Negative (Negative) 05/06/22 22:38 Urine Blood 2+ (Negative) H 05/06/22 22:38 Urine Nitrate Negative (Negative) 05/06/22 22:38 Urine Bilirubin Neg (Negative) 05/06/22 22:38 Urine Urobilinogen Neg mg/dL (Negative) 05/06/22 22:38 Ur Leukocyte Esterase Negative (Negative) 05/06/22 22:38 Urine RBC 0-4 /hpf (0-2) H 05/06/22 22:38 Urine WBC 0-4 /hpf (0-5) H 05/06/22 22:38 Ur Squamous Epith Cells None /hpf (0-5) 05/06/22 22:38 Amorphous Sediment Not Reportable 05/06/22 22:38 Urine Bacteria None /hpf (NONE) 05/06/22 22:38 Ur Random Creatinine 42 mg/dL (20-320) 05/06/22 22:38 Ur Random Albumin 63 % 05/06/22 22:38 Ur Random Microalbumin 46 ug/dL (0-20) H 05/06/22 22:38 U Random Total Protein 75 mg/dL 05/06/22 22:38 U Random Total Protein 88 mg/dL (5-25) H 05/06/22 22:38 Ur Random Sodium 61 mmol/L 05/06/22 22:38 Ur Random Potassium 23 mmol/L 05/06/22 22:38 Ur Random Chloride 65 mmol/L 05/06/22 22:38 Urine Creatinine 42 mg/dL (39-259) 05/06/22 22:38 Microalb/Creat Ratio 1095 mg/dL (0-20) H 05/06/22 22:38 Protein/Creatinin Ratio 2095 mg/g creat (25-148) H 05/06/22 22:38 Protein/Creat Ratio 24h 2.095 (0.025-0.148) H 05/06/22 22:38 U Random h-6-Kxssljxa % 6 % 05/06/22 22:38 U Random c-8-Zeeubnnd % 9 % 05/06/22 22:38 U Random Beta Globulin 13 % 05/06/22 22:38 U Random Gamma Glob 9 % 05/06/22 22:38 U Abnormal Prot Band 1 Not Reportable 05/06/22 22:38 U Abnormal Prot Band 2 Not Reportable 05/07/22 05:45 U Abnormal Prot Band 3 Not Reportable 05/07/22 05:45 Urine PEP Interpret See note 05/06/22 22:38 Nasal Influ A H1 2009 PCR Not detected (NOT DETECT) 05/06/22 15:17 Pro Electrophoresis Int See note 05/07/22 05:45 Serum Immunofixation See note 05/07/22 05:45 Adenovirus (PCR) Not detected (NOT DETECT) 05/06/22 15:17 C. pneumoniae DNA (PCR) Not detected (NOT DETECT) 05/06/22 15:17 Coronavirus 229E (PCR) Not detected (NOT DETECT) 05/06/22 15:17 Hep Bs Antigen Non-reactive (Nonreactive) 05/07/22 05:45 Hep Bs Antibody < 3.5 (11.5-1000) L 05/07/22 05:45 Hep B Core Total Ab Non-reactive (Nonreactive) 05/07/22 05:45 Hepatitis C Antibody Non-reactive (Nonreactive) 05/07/22 05:45 Human Metapneumovir PCR Not detected (NOT DETECT) 05/06/22 15:17 Influenza A (H1) PCR Not detected (NOT DETECT) 05/06/22 15:17 Influenza A (H3) PCR Not detected (NOT DETECT) 05/06/22 15:17 Influenza Type A (PCR) Not detected (NOT DETECT) 05/06/22 15:17 Influenza Type B (PCR) Not detected (NOT DETECT) 05/06/22 15:17 M. pneumoniae (PCR) Not detected (NOT DETECT) 05/06/22 15:17 Parainfluenza 1 (PCR) Not detected (NOT DETECT) 05/06/22 15:17 Parainfluenza 2 (PCR) Not detected (NOT DETECT) 05/06/22 15:17 Parainfluenza 3 (PCR) Not detected (NOT DETECT) 05/06/22 15:17 Parainfluenza 4 (PCR) Not detected (NOT DETECT) 05/06/22 15:17 RSV Type A (PCR) Not detected (NOT DETECT) 05/06/22 15:17 RSV Type B (PCR) Not detected (NOT DETECT) 05/06/22 15:17 Entero/Rhino (PCR) Not detected (NOT DETECT) 05/06/22 15:17 SARS-CoV-2 (PCR) Not detected (NOT DETECT) 05/06/22 15:17 Vitals Last Vital Signs Temp 97.8 F 05/11/22 08:00 Pulse 55 L 05/11/22 08:00 Resp 16 05/11/22 08:00 BP 116/56 05/11/22 08:00 Pulse Ox 93 05/11/22 08:00 O2 Del Method 05/11/22 03:53 O2 Flow Rate 2 05/10/22 20:00 Discharge Plan Discharge Patient Disposition: Home Health Service Condition: Stable Prescriptions: Continued multivitamin [Daily Multi-Vitamin] Tablet 1 tab PO QPM Trulicity 0.75 mg/0.5 mL pen injector 0.75 mg SUBCUT Q7D Rx Instructions: ON SAT aspirin 81 mg tablet,delayed release (DR/EC) 81 mg PO DAILY@0600 promethazine 25 mg tablet 25 mg PO Q6H PRN (Reason: Pain) Eliquis 2.5 mg tablet 2.5 mg PO BID mupirocin 2 % ointment 1 applic topical BID 14 Days Qty: 22 2RF buspirone 5 mg tablet 5 mg PO TID Qty: 90 2RF citalopram 40 mg tablet 40 mg PO DAILY Qty: 30 2RF trazodone 100 mg tablet 400 mg PO BEDTIME PRN (Reason: insomnia) Qty: 120 2RF bupropion HCl [Wellbutrin XL] 300 mg tablet extended release 24 hr 300 mg PO QAM Qty: 30 2RF nitroglycerin [Nitrostat] 0.4 mg tablet, sublingual 0.4 mg SUBLINGUAL Q5M PRN (Reason: Chest Pain) Qty: 25 2RF isosorbide mononitrate 30 mg tablet extended release 24 hr 30 mg PO BID@0600,1800 Qty: 180 3RF atorvastatin 40 mg tablet 40 mg PO QAM Qty: 90 2RF ranolazine [Ranexa] 500 mg tablet extended release 12 hr 500 mg PO BID Qty: 180 3RF insulin lispro [Humalog U-100 Insulin] 100 unit/mL solution See Rx Instructions .ROUTE .COMPLEX Rx Instructions: SLIDING SCALE BID @06,18 amlodipine 5 mg Tablet 5 mg PO DAILY Qty: 0 0RF metoprolol tartrate 50 mg tablet 25 mg PO BID@0600,1800 Qty: 0 0RF docusate sodium [Colace] 100 mg capsule 100 mg PO BID Qty: 30 0RF cyclobenzaprine 10 mg tablet 10 mg PO TID PRN (Reason: MUSCLE SPASMS) levothyroxine 88 mcg tablet 88 mcg PO QAM Tresiba FlexTouch U-200 200 unit/mL (3 mL) insulin pen 38 unit SUBCUT BEDTIME lidocaine 5 % adhesive patch,medicated 1 patch transdermal PRN PRN (Reason: Pain) oxycodone 5 mg tablet 5 mg PO Q4H PRN (Reason: pain) Qty: 10 0RF Changed bumetanide 2 mg tablet 2 mg PO BID 30 Days Qty: 60 0RF potassium chloride 20 mEq tablet,ER particles/crystals 10 meq PO DIRECTED 30 Days Qty: 30 0RF Rx Instructions: 40 mEq PO Take 2 tabs in morning and afternoon and 1 tab in evening; Discontinued mupirocin 2 % ointment 1 applic topical BID 14 Days Qty: 22 2RF metolazone 5 mg tablet 5 mg PO Q48H calcitriol 0.25 mcg capsule 0.25 mcg PO TID Discharge Orders: Discharge Order (Routine); Ordered 05/11/22 Ordered By: Esmer Hunter Other Ambulatory Orders: Basic Metabolic Panel (Q7D) Timeframe: 20220518 Facility: [facility] - Location: Lab - Main Lab Ordered By: Esmer Hunter Basic Metabolic Panel (Q7D) Timeframe: 20220525 Facility: [facility] - Location: Lab - Main Lab Ordered By: Esmer Hunter Basic Metabolic Panel (Q7D) Timeframe: 20220601 Facility: [facility] - Location: Lab - Main Lab Ordered By: Esmer Hunter Sestamibi Stress Test Request (Routine) Timeframe: 1 Day Facility: [facility] - Location: Cardiac Diagnostic Laboratory Ordered By: Esmer Hunter Referrals: [facility] [place] Home Care ([facility]) [Outside] Antolin Weiss MD [Referring] - 2 weeks (Due to the Holiday we were unable to schedule your appointment. Please call the office on SaturdayMay 15 to schedule your hospital follow up appointment.) Amalia Mccain FNP [Nurse Practitioner] - 1 week (Due to the Holiday we were unable to schedule your appointment. Please call the office on SaturdayMay 15 to schedule your hospital follow up appointment.) Tory Lopez MD [Physician] - 1 month (Due to the Holiday we were unable to schedule your appointment. Please call the office on SaturdayMay 15 to schedule your hospital follow up appointment.) Kp Montanez DO [Primary Care Provider] - 4-7 days (Due to the Holiday we were unable to schedule your appointment. Please call the office on SaturdayMay 15 to schedule your hospital follow up appointment.) Discharge Diet: Usual diet Patient Instructions: Syncope, Angina (DC), Acute Kidney Injury (DC), Opioid Safety Activity Restrictions/Additional Instructions: Please return to ER if you have worsening of existing symptoms or any new symptoms develop. Please follow up with nephrology, cardiology and your primary care doctor as directed. Please monitor your blood pressures and take them to your follow up. Discharge Attestations Time Spent in Discharge Care*: less than 30 min Status at Discharge: Cognitive status at discharge: cognitively intact, Behavioral status at discharge: cooperative and independent in ADL's, Quality Metrics Clinical Quality Measures [ No reported AMI, CVA or VTE this stay] Coding Level of Care Code Acute Chg FW DC note Diagnoses Atypical chest pain R07.89 Orthostatic hypotension I95.1 Acute kidney injury superimposed on CKD N17.9; N18.9 Hypertension I10 Chronic systolic heart failure I50.22
--- NOTE | 2022-05-11 11:33 | PM.PN ---
Subjective Subjective: Has not had a significant chest pain since yesterday. No new symptoms. The orthostatic vitals have improved. The standing her blood pressure is in the 110s to 120.. No new symptoms. Medications: Medication Review Details: Current Medications Acetaminophen (Acetaminophen 325 Mg Tablet) 650 mg PO Q6H PRN PRN Reason: Mild/Mod Pain Or Temp >/= 101 Last Admin: 05/10/22 21:34 Dose: 650 mg Amlodipine Besylate (Amlodipine 5 Mg Tablet) 5 mg PO DAILY [facility] Last Admin: 05/11/22 08:51 Dose: 5 mg Apixaban (Apixaban 5 Mg Tablet) 2.5 mg PO BID [facility] Last Admin: 05/11/22 08:51 Dose: 2.5 mg Aspirin (Aspirin 81 Mg Ec Tablet) 81 mg PO DAILY@0600 [facility] Last Admin: 05/11/22 06:06 Dose: 81 mg Atorvastatin Calcium (Atorvastatin 40 Mg Tablet) [facility] Admin: 05/11/22 06:06 Dose: 40 mg Bupropion HCl (Bupropion Xl (24 Hr) 300 Mg Tablet) [facility] Last Admin: 05/11/22 06:06 Dose: 300 mg Buspirone HCl (Buspirone 10 Mg Tablet) 5 mg PO TID [facility] Last Admin: 05/11/22 08:48 Dose: 5 mg Citalopram Hydrobromide (Citalopram 20 Mg Tablet) 40 mg PO DAILY [facility] Last Admin: 05/11/22 08:48 Dose: 40 mg Cyclobenzaprine HCl (Cyclobenzaprine 10 Mg Tablet) 10 mg PO TID PRN PRN Reason: MUSCLE SPASMS Docusate Sodium (Docusate Sodium 100 Mg Capsule) 100 mg PO BID [facility] Last Admin: 05/11/22 08:48 Dose: 100 mg Isosorbide Mononitrate (Isosorbide Mononitrate Er 30 Mg Tablet) 30 mg PO BID@0600,1800 [facility] Last Admin: 05/11/22 06:06 Dose: 30 mg Levothyroxine Sodium (Levothyroxine 88 Mcg Tablet) 88 mcg [facility] Last Admin: 05/11/22 06:06 Dose: 88 mcg Lidocaine (Lidocaine 5% Patch) 1 patch TRANSDERMA PRN PRN PRN Reason: Pain Metoprolol Tartrate (Metoprolol Tartrate 25 Mg Tablet) 12.5 mg PO BID@0600,1800 [facility] Last Admin: 05/11/22 06:08 Dose: 12.5 mg Naloxone HCl (Naloxone 0.4 Mg/Ml Sdv) 0.1 mg IVP Q2M PRN PRN Reason: OPIATERV Non-Formulary Medication (Insulin Degludec [Tresiba Flextouch U-200]) 38 unit SUBCUT BEDTIME [facility] Last Admin: 05/10/22 21:34 Dose: 38 unit Pantoprazole Sodium (Pantoprazole Dr 40 Mg Tablet) 40 mg PO DAILY [facility] Last Admin: 05/11/22 08:48 Dose: 40 mg Promethazine HCl (Promethazine 25 Mg Tablet) 25 mg PO Q6H PRN PRN Reason: Pain Last Admin: 05/07/22 06:40 Dose: 25 mg Ranolazine (Ranolazine (12hr) 500 Mg Tablet) 500 mg PO BID [facility] Last Admin: 05/11/22 08:48 Dose: 500 mg Trazodone HCl (Trazodone 100 Mg Tablet) 400 mg PO BEDTIME PRN PRN Reason: insomnia Last Admin: 05/10/22 21:34 Dose: 400 mg Vitals/I&O/Wt Last Vital Signs Temp 97.8 F 05/11/22 08:00 Pulse 55 L 05/11/22 08:00 Resp 16 05/11/22 08:00 BP 116/56 05/11/22 08:00 Pulse Ox 93 05/11/22 08:00 O2 Del Method 05/11/22 03:53 O2 Flow Rate 2 05/10/22 20:00 05/10/22 05/11/22 05/11/22 22:59 06:59 14:59 Intake Total 480 / 1595 Output Total 200 / 200 Balance 280 / 1395 Physical Exam Narrative: GENERAL: The patient is alert and oriented times three. Not in any acute distress. HEENT: No significant pallor, icterus or lymphadenopathy.Oral cavity: There are no mucous membrane lesions. NECK: Trachea appears to be central. No masses noted. No JVD or thyromegaly appreciated. RESPIRATORY: Chest is symmetrical. No intercostals muscle retraction or any accessory muscle activation. There is no chest wall tenderness. Breath sounds are heard bilaterally. No rales or rhonchi heard. No evidence of any consolidation. BREASTS: Deferred. HEART: The heart sounds are normal. No S3 or S4. Systolic murmur in the left sternal border. No diastolic murmurs. No pericardial rub ABDOMEN: No vessel pulsations or distention. No tenderness. No organomegaly appreciated. Bowel sounds are normally heard. : Deferred. RECTAL: Deferred. LYMPHATIC: No lymphadenopathy noted in the neck. EXTREMITIES: No edema or cyanosis. No clubbing. MUSCULOSKELETAL: No acute joint deformities or swelling SKIN: There are no significant rashes or ecchymosis NEUROPSYCHIATRIC: The patient is alert and oriented x3. Appears to be in a good mood. No tremors or rigidity noted. Data 05/11/22 03:35 05/11/22 03:35 Micro: Laboratory Last Values WBC 7.6 10^3/uL (4.0-10.0) 05/11/22 03:35 RBC 3.43 10^6/uL (4.1-5.3) L 05/11/22 03:35 Hgb 10.8 g/dL (11.7-16.6) L 05/11/22 03:35 Hct 32.4 % (42.0-52.0) L 05/11/22 03:35 MCV 94.5 fl (80-94) H 05/11/22 03:35 MCH 31.5 pg (28.0-34.0) 05/11/22 03:35 MCHC 33.3 g/dL (30.0-36.0) 05/11/22 03:35 RDW 14.7 % (12.1-15.1) 05/11/22 03:35 Plt Count 220 10^3/cmm (130-400) 05/11/22 03:35 MPV 10.0 fL (7.4-10.4) 05/11/22 03:35 Neut % (Auto) 59.9 % 05/11/22 03:35 Lymph % (Auto) 25.9 % 05/11/22 03:35 Sherman % (Auto) 9.2 % 05/11/22 03:35 Eos % (Auto) 3.4 % 05/11/22 03:35 Baso % (Auto) 1.1 % 05/11/22 03:35 Neut # (Auto) 4.54 10^3/uL (1.8-7.7) 05/11/22 03:35 Lymph # (Auto) 2.0 10^3/uL (0.8-4.8) 05/11/22 03:35 Sherman # (Auto) 0.7 10^3/uL (0.2-0.9) 05/11/22 03:35 Eos # (Auto) 0.3 10^3/uL (0.0-0.8) 05/11/22 03:35 Baso # (Auto) 0.1 10^3/uL (0.0-0.1) 05/11/22 03:35 Nucleated RBC % (auto) 0 % 05/11/22 03:35 Nucleated RBCs # 0.0 /100WBC 05/11/22 03:35 D-Dimer 0.45 ug/mIFEU (0-0.59) 05/10/22 04:20 Sodium 137 mmol/L (136-145) 05/11/22 03:35 Potassium 3.3 mmol/L (3.5-5.1) L 05/11/22 03:35 Chloride 100 mmol/L (98-107) 05/11/22 03:35 Carbon Dioxide 27 mmol/L (22-29) 05/11/22 03:35 Anion Gap 13.3 (5-19) 05/11/22 03:35 BUN 40 mg/dL (6-20) H 05/11/22 03:35 Creatinine 3.3 mg/dL (0.7-1.2) H 05/11/22 03:35 GFR Calculation 19.7 mL/min (90-130) L 05/11/22 03:35 Glucose 196 mg/dL (65-115) H 05/11/22 03:35 POC Glucose 170 mg/dL (70-110) H 05/11/22 06:32 Calculated Osmolality 299 mOsm/kg (285-295) H 05/11/22 03:35 Lactate 2.4 mmol/L (0.5-2.2) H 05/06/22 16:16 Uric Acid 13.4 mg/dL (3.4-7.0) H 05/06/22 18:21 Calcium 8.9 mg/dL (8.5-10.5) 05/11/22 03:35 Phosphorus 2.9 mg/dL (2.5-4.5) 05/11/22 03:35 Magnesium 1.8 mg/dL (1.7-2.3) 05/11/22 03:35 Total Bilirubin 0.2 mg/dL (0.15-1.2) 05/11/22 03:35 AST 13 U/L (0-40) 05/11/22 03:35 ALT 6 U/L (0-41) 05/11/22 03:35 Alkaline Phosphatase 85 U/L (40-130) 05/11/22 03:35 Troponin T Gen 5 ng/L 45 ng/L (0-15) H 05/10/22 04:20 Troponin T Baseline 48 ng/L (0-15) H 05/10/22 10:22 Troponin T 120 Minute 48.71 ng/L (0-15) H 05/10/22 12:25 Delta Troponin T 0.71 ABS# (0-10) 05/10/22 12:25 Troponin T Hi Sens 6Hr 44.82 ng/L (0-15) H 05/10/22 16:20 Troponin T Hi Sens 6Hr Delta -3.18 ng/L (0-12) L 05/10/22 16:20 Total Protein 5.4 g/dL (6.6-8.7) L 05/11/22 03:35 Albumin 2.7 g/dL (3.5-5.2) L 05/11/22 03:35 Globulin 2.7 g/dL (1.3-4.6) 05/11/22 03:35 Tpave-6-Cxcdchccj 0.4 g/dL (0.2-0.3) H 05/07/22 05:45 Juozl-9-Ktthxkkmb 0.7 g/dL (0.5-0.9) 05/07/22 05:45 Qtck-7-Ptpzvkpu 0.4 g/dL (0.4-0.6) 05/07/22 05:45 Ixei-8-Dehkkhoh 0.3 g/dL (0.2-0.5) 05/07/22 05:45 Gamma Globulins 0.7 g/dL (0.8-1.7) L 05/07/22 05:45 Abnorm Protein Band 1 Not Reportable 05/07/22 05:45 Angiotensin Convert Enz 29 U/L (9-67) 05/08/22 14:30 25-OH Vitamin D Total 28 ng/mL (30-100) L 05/07/22 05:45 TSH 2.38 uIU/mL (0.27-4.20) 05/07/22 05:45 PTH Intact 14.0 pg/mL (15-65) L 05/07/22 05:45 Calcium (PTH Intact) 11.6 mg/dL (8.5-10.5) H 05/07/22 05:45 Urine Color Yellow (Yellow) 05/06/22 22:38 Urine Appearance Clear (CLEAR) 05/06/22 22:38 Urine pH 6 (5-7) 05/06/22 22:38 Ur Specific [place] 1.010 (1.005-1.030) 05/06/22 22:38 Urine Protein 2+ (Negative) H 05/06/22 22:38 Urine Glucose (UA) 1+ (Normal) H 05/06/22 22:38 Urine Ketones Negative (Negative) 05/06/22 22:38 Urine Blood 2+ (Negative) H 05/06/22 22:38 Urine Nitrate Negative (Negative) 05/06/22 22:38 Urine Bilirubin Neg (Negative) 05/06/22 22:38 Urine Urobilinogen Neg mg/dL (Negative) 05/06/22 22:38 Ur Leukocyte Esterase Negative (Negative) 05/06/22 22:38 Urine RBC 0-4 /hpf (0-2) H 05/06/22 22:38 Urine WBC 0-4 /hpf (0-5) H 05/06/22 22:38 Ur Squamous Epith Cells None /hpf (0-5) 05/06/22 22:38 Amorphous Sediment Not Reportable 05/06/22 22:38 Urine Bacteria None /hpf (NONE) 05/06/22 22:38 Ur Random Creatinine 42 mg/dL (20-320) 05/06/22 22:38 Ur Random Albumin 63 % 18 22:38 Ur Random Microalbumin 46 ug/dL (0-20) H 05/06/22 22:38 U Random Total Protein 75 mg/dL 05/06/22 22:38 U Random Total Protein 88 mg/dL (5-25) H 05/06/22 22:38 Ur Random Sodium 61 mmol/L 05/06/22 22:38 Ur Random Potassium 23 mmol/L 05/06/22 22:38 Ur Random Chloride 65 mmol/L 05/06/22 22:38 Urine Creatinine 42 mg/dL (39-259) 05/06/22 22:38 Microalb/Creat Ratio 1095 mg/dL (0-20) H 05/06/22 22:38 Protein/Creatinin Ratio 2095 mg/g creat (25-148) H 05/06/22 22:38 Protein/Creat Ratio 24h 2.095 (0.025-0.148) H 05/06/22 22:38 U Random j-1-Ohmrmjcc % 6 % 05/06/22 22:38 U Random g-0-Hqxnokvj % 9 % 05/06/22 22:38 U Random Beta Globulin 13 % 05/06/22 22:38 U Random Gamma Glob 9 % 05/06/22 22:38 U Abnormal Prot Band 1 Not Reportable 05/06/22 22:38 U Abnormal Prot Band 2 Not Reportable 05/07/22 05:45 U Abnormal Prot Band 3 Not Reportable 05/07/22 05:45 Urine PEP Interpret See note 05/06/22 22:38 Nasal Influ A H1 2009 PCR Not detected (NOT DETECT) 05/06/22 15:17 Pro Electrophoresis Int See note 05/07/22 05:45 Serum Immunofixation See note 05/07/22 05:45 Adenovirus (PCR) Not detected (NOT DETECT) 05/06/22 15:17 C. pneumoniae DNA (PCR) Not detected (NOT DETECT) 05/06/22 15:17 Coronavirus 229E (PCR) Not detected (NOT DETECT) 05/06/22 15:17 Hep Bs Antigen Non-reactive (Nonreactive) 05/07/22 05:45 Hep Bs Antibody < 3.5 (11.5-1000) L 05/07/22 05:45 Hep B Core Total Ab Non-reactive (Nonreactive) 05/07/22 05:45 Hepatitis C Antibody Non-reactive (Nonreactive) 05/07/22 05:45 Human Metapneumovir PCR Not detected (NOT DETECT) 05/06/22 15:17 Influenza A (H1) PCR Not detected (NOT DETECT) 05/06/22 15:17 Influenza A (H3) PCR Not detected (NOT DETECT) 05/06/22 15:17 Influenza Type A (PCR) Not detected (NOT DETECT) 05/06/22 15:17 Influenza Type B (PCR) Not detected (NOT DETECT) 05/06/22 15:17 M. pneumoniae (PCR) Not detected (NOT DETECT) 05/06/22 15:17 Parainfluenza 1 (PCR) Not detected (NOT DETECT) 05/06/22 15:17 Parainfluenza 2 (PCR) Not detected (NOT DETECT) 05/06/22 15:17 Parainfluenza 3 (PCR) Not detected (NOT DETECT) 05/06/22 15:17 Parainfluenza 4 (PCR) Not detected (NOT DETECT) 05/06/22 15:17 RSV Type A (PCR) Not detected (NOT DETECT) 05/06/22 15:17 RSV Type B (PCR) Not detected (NOT DETECT) 05/06/22 15:17 Entero/Rhino (PCR) Not detected (NOT DETECT) 05/06/22 15:17 SARS-CoV-2 (PCR) Not detected (NOT DETECT) 05/06/22 15:17 A&P Assessment and plan (1) Atypical chest pain: Patient is currently stable. Has not had any chest pain since last night. For further evaluation of his symptoms, a Myocardial perfusion imaging would be appropriate. This may need to be done as an outpatient. This was discussed with the patient in detail which he understood well. (2) Orthostatic hypotension: The orthostatic hypotension is improving. We will continue on the current management. The systolic blood pressure in the standing position is around 110- 120 mm Hg. May continue on the current management. (3) Acute kidney injury superimposed on CKD: Management as per the nephrology. Kidney function appears to be stable at this point (4) Hypertension: Blood pressure seems to be fairly under control. May continue on the current management. (5) Chronic systolic heart failure: Currently the heart failure is compensated. Plan The patient continues remain stable, may be discharged home from a cardiac standpoint. We will schedule the Lexiscan MIBI as an outpatient. Will be seen by Dr. Lopez in a month. Appointment with the nurse practitioner in 1 week Attestations Medical Necessity Statement*: Possible discharge home today Coding Level of Care Code Acute Solution Consultant for Chg Fwd History Expanded Problem Focused Exam Detailed Medical Decision Making Moderate Complexity Diagnoses Atypical chest pain R07.89 Orthostatic hypotension I95.1 Acute kidney injury superimposed on CKD N17.9; N18.9 Hypertension I10 Chronic systolic heart failure I50.22
[2022-05-11 12:00] VITALS: BP 174/76; PULSE 66; RESP 16; TEMP 36.5; O2SAT 94
[2022-05-11 12:29] VITALS: BP 116/56; PULSE 58; RESP 16; TEMP 36.6; O2SAT 93
[2022-05-11 12:40] LABS: Glucose Point of Care 66 mg/dL (70-110)
--- NOTE | 2022-05-11 12:53 | PM.PN ---
Subjective Subjective: NO NEW COMPLAINTS Medications: Reviewed: Yes Vitals/I&O/Wt Last Vital Signs Temp 97.8 F 05/11/22 12:29 Pulse 58 L 05/11/22 12:29 Resp 16 05/11/22 12:29 BP 116/56 05/11/22 12:29 Pulse Ox 93 05/11/22 12:29 O2 Del Method 05/11/22 03:53 O2 Flow Rate 0 05/11/22 12:28 05/10/22 05/11/22 05/11/22 22:59 06:59 14:59 Intake Total 480 / 1595 Output Total 200 / 200 Balance 280 / 1395 Physical Exam Narrative: Patient is awake, alert no acute distress, neck supple, no pedal edema Data 05/11/22 03:35 05/11/22 03:35 A&P Assessment and plan (1) Acute kidney injury superimposed on CKD: 51 yr old man 1. CKD stage 4- from DM,CRS 2. JESUS-secondary to recent aggressive diuresis, creatinine has improved, resume diuretics at a lower dose Bumex 2 mg p.o. twice daily. Also resume low-dose potassium 10 mg/day. Renal ultrasound no hydronephrosis, urine analysis showed 2+ protein 1+ glucose and 2+ blood. Urine protein to creatinine ratio is 2095. Patient should have follow-up labs as well as follow-up with outpatient nephrology. 3. hypercalcemia- pt was on high dose calcitriol and metolazone stop- improved w/ ivf, lasix, and calcitonin- monitor - -await pth rp, spep, UPEP is negative, fede levels -Do not resume calcitriol at discharge. 4. met alkalosis- from diuretics -improved -lactic acidosis-improved 5. replace k, mag and phos 6. htn- bp improved- dec meds- amlodipine 5 mg d, metoprolol 12.5 bid 7. dm control per medicine seen and examined w/ RN - telehealth visit informed consent obtained from pt and his time spent 30 minutes Plan see above- Attestations Medical Necessity Statement*: Possible discharge home today Coding Level of Care Code Acute [employer] for [employer] Fwd Diagnoses Acute kidney injury superimposed on CKD N17.9; N18.9
[2022-05-11 19:14] LABS: PTH Related Peptide (Protein) 13 pg/mL (11-20)
== END 2022-05-11 16:45 | disposition home health service (06) | DRG 683 ==
LOC: ER 17:05 → MEDSURG 18:51
PROVIDERS: Internal Medicine; Internal Medicine Nephrology; Admitting Provider Student in an Organized Health Care Education/Training Program; Emergency Provider Emergency Medicine; PCP Internal Medicine; Visit Provider Internal Medicine
DX: N17.9 Acute kidney failure, unspecified (principal); E87.3 Alkalosis; F33.9 Major depressive disorder, recurrent, unspecified; I13.0 Hypertensive heart and chronic kidney disease with heart failure and stage 1 through stage 4 chronic kidney disease, or unspecified chronic kidney disease; I50.22 Chronic systolic (congestive) heart failure; R07.89 Other chest pain; I95.1 Orthostatic hypotension; N18.4 Chronic kidney disease, stage 4 (severe); Z79.85 Long-term (current) use of injectable non-insulin antidiabetic drugs; Z79.82 Long term (current) use of aspirin; Z79.01 Long term (current) use of anticoagulants; Z79.891 Long term (current) use of opiate analgesic; Z79.4 Long term (current) use of insulin; D63.1 Anemia in chronic kidney disease; M21.372 Foot drop, left foot; K21.9 Gastro-esophageal reflux disease without esophagitis; I25.2 Old myocardial infarction; Z88.2 Allergy status to sulfonamides; Z91.041 Radiographic dye allergy status; E21.3 Hyperparathyroidism, unspecified; I25.10 Atherosclerotic heart disease of native coronary artery without angina pectoris; Z95.5 Presence of coronary angioplasty implant and graft; I25.5 Ischemic cardiomyopathy; E78.5 Hyperlipidemia, unspecified
CPT/HCPCS: 12345; 36415; 36416; 36591; 71045; 73562; 76770; 80053; 81001; 82044; 82164; 82306; 82310; 82436; 82542; 82570; 82962; 83605; 83735; 83970; 84100; 84133; 84155; 84156; 84165; 84166; 84300; 84443; 84484; 84550; 85025; 85378; 86334; 86705; 86706; 86803; 87340; 87486; 87581; 87633; 93005; 93306; 94760; 96372; 97110; 97116; 97161; C8924; J0630; J1940; J2270; J3475; J3480; J7030; Q0169; Q3014; Q9956

== ENCOUNTER 2022-05-15 15:10 | Inpatient (IN) | payer MEDICARE, MEDICAID, SELFPAY ==
[2022-05-15 16:14] VITALS: BP 134/66; PULSE 90; RESP 16; TEMP 37.1; O2SAT 94
--- NOTE | 2022-05-15 16:21 | ECG_ITS ---
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 Measurements Intervals [place] Rate: 89 P: 6 WI: 164 QRS: 2 QRSD: 102 T: 67 QT: 375 QTc: 457 Interpretive Statements SINUS RHYTHM ANTERIOR MYOCARDIAL INFARCTION , OF INDETERMINATE AGE [40+ ms Q WAVE AND/OR ST/T ABNORMALITY IN V3/V4] Compared to ECG 05/10/2022 15:17:06 Sinus bradycardia no longer present Myocardial infarct finding still present Electronically Signed On 05-16-2022 16:51:33 DECK MOLDER by Tory Lopez M.D. [id number]
--- NOTE | 2022-05-15 18:19 | XR_ITS ---
WS: [id number] Portable AP upright chest, 05/15/2022 Clinical Data: cp Comparison: Portable chest, 05/06/2022 Findings: No nodules, masses or effusions are seen. The heart is slightly enlarged. The pulmonary vas cularity is not increased. No pneumonia or pneumothorax is seen. Midline sternotomy sutures are seen. There is a left Port-A-Cath and the tip ends in the superior vena cava. Monitor leads are on the jose st wall. XR/XR chest 1V portable [id number] Impression: Atherosclerosis and minimal cardiomegaly.
--- NOTE | 2022-05-15 20:19 | ECG_ITS ---
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 Measurements Intervals [place] Rate: 89 P: 16 MA: 172 QRS: 15 QRSD: 97 T: 66 QT: 373 QTc: 456 Interpretive Statements SINUS RHYTHM POSSIBLE ANTERIOR MYOCARDIAL INFARCTION , OF INDETERMINATE AGE [30 ms Q WAVE IN V3/V4, OR R < 0.2 mV IN V4] Compared to ECG 05/15/2022 16:15:26 No significant changes Electronically Signed On 05-16-2022 16:55:53 REHABILITATION CONSTRUCTION SPECIALIST by Tory Lopez M.D. [email or web address]
--- NOTE | 2022-05-15 20:37 | USR_ITS ---
PROCEDURE INFORMATION: Exam: US Duplex Left Lower Extremity Veins, Limited Exam date and time: 05/15/2022 8:57 PM Age: 51 years old Clinical indication: Pain; Leg, lower; Left; Additional info: Leg pain and swelling TECHNIQUE: Imaging protocol: Real-time Duplex ultrasound of the Left Lower Extremity with 2-D blanco scale, color Doppler flow and spectral waveform analysis with image documentation. Limited exam focused on the left lower extremity veins. COMPARISON: US CV venous duplex [facility] [id number] 03/26/2021 4:51 PM FINDINGS: Left deep veins: Unremarkable. The common femoral, femoral, proximal profunda femoral, popliteal, posterior tibial and peroneal veins are patent without thrombus. Normal compressibility, augmentation response and Doppler waveforms. Left superficial veins: Unremarkable. Saphenofemoral junction is patent without thrombus. Soft tissues: Unremarkable. US/CV venous duplex [facility] [id number] IMPRESSION: No sonographic evidence of deep vein thrombosis.
[2022-05-15 20:38] LABS: Basophils # 0.1 10^3/uL (0.0-0.1); Basophils % 0.6 %; Eosinophils # 0.1 10^3/uL (0.0-0.8); Hematocrit 32.3 % (42.0-52.0); Hemoglobin 10.8 g/dL (11.7-16.6); Lymphocytes # 1.4 10^3/uL (0.8-4.8); Lymphocytes % 13.1 %; Mean Corpuscular HGB Conc 33.4 g/dL (30.0-36.0); Mean Corpuscular Volume 92.8 fl (80-94); Mean Platelet Volume 9.6 fL (7.4-10.4); Monocytes # 1.2 10^3/uL (0.2-0.9); Monocytes % 11.5 %; Neutrophils # 7.84 10^3/uL (1.8-7.7); Neutrophils % 73.5 %; Nucleated Red Blood Cells % 0 %; Platelet Count 267 10^3/cmm (130-400); Red Blood Count 3.48 10^6/uL (4.1-5.3); Red Cell Distribution Width 14.7 % (12.1-15.1); White Blood Count 10.7 10^3/uL (4.0-10.0)
--- NOTE | 2022-05-15 20:38 | ED_ITS ---
HPI - Extremity Problem General: Chief complaint: Extremity Injury, Lower Stated complaint: Bilateral Knee Pain Time Seen by Provider: 05/15/22 20:18 History of Present Illness: 51-year-old male with a history of diabetes, previous DVT and multiple pulmonary emboli, coronary artery disease status post 5 stents who presents with chest pain which started around 2 PM today. He describes it as a heavy sensation in his mid chest area radiating into his neck and left shoulder area. He does have associated shortness of breath as well as nausea and vomited 1 time. He rates the pain 5 out of 10. He states this pain is similar to his heart attack pain as well as his pulmonary embolism pain. Patient also has been having left lower extremity pain for the past 3 to 4 days, increasing swelling and now a red swollen area on the proximal aspect of his left lower leg. He denies orthopnea or dyspnea with exertion. The patient was just in the hospital 1 week ago because of electrolyte issues and dehydration. He is scheduled for an angiogram with cardiology in the near future. Last stress test was in 2019. Associated symptoms: Reports chest pain; Deny fever(s) or rash Review of Systems Const: Denies: fever(s), chills, body aches or change in appetite Eyes: Denies: blurry vision or eye discomfort ENMT: Denies: throat pain or dental pain Card: Reports: chest pain; Denies: palpitations, dyspnea on exertion or orthopnea Resp: Reports: dyspnea GI: Reports: nausea and vomiting; Denies: abdominal pain or diarrhea : Denies: dysuria Musc: Reports: extremity pain and extremity swelling Skin/Breast: Denies: rash Neuro: Denies: headache(s) Psych: Denies: depression Dewey/Lymph: Denies: easy bruising All/Imm: Denies: urticaria PFS ED PFSH: Medical History Acute on chronic congestive heart failure Anemia Atherosclerotic heart disease of [place] coronary artery with other forms of angina pectoris hx of CAD with prior stenting of proximal LAD, LCx, RCA Chronic anticoagulation Eliquis Chronic kidney disease -baseline Cr appears to be around 1.5 Chronic systolic heart failure EF=47%, diffuse LV hypokinesis, mildly increased LA size Depression Diabetes A1c-7.6 (08/2019) Foot drop, left GERD (gastroesophageal reflux disease) H/O acute myocardial infarction H/O deep venous thrombosis developed compartment syndrome Hyperlipidemia Hypertension Hypothyroidism Ischemic cardiomyopathy Major depressive disorder, recurrent severe without psychotic features Osteoarthritis of spine Surgical History H/O colonoscopy (11/14/20) 08/2015 H/O esophagogastroduodenoscopy (11/14/20) 08/2015 H/O removal of testicle left H/O skin graft H/O vasectomy History of appendectomy 1995 History of coronary artery stent placement 5x History of excision of mass 06/08/2019: Subcutaneous mass on back History of inguinal hernia repair, bilateral 1999 History of removal of Port-a-Cath Hx of cholecystectomy Peritoneal dialysis catheter in situ (06/15/21) Port-A-Cath in place Family History Grandfather Cancer skin cancer Parkinson disease Brother Hypertension Father Heart disease Mother Hypertension Stroke Aneurysm Grandmother Aneurysm Other Crohn disease Denies family history of Anesthesia complication Bleeding disorder Social History Smoking and tobacco status: never smoked Second hand smoke exposure: No Smoking risk assessment/counseling performed?: No Alcohol intake: former Year of sobriety/quit date alcohol: 2015 Former alcohol use details: Only holidays Desire information about alcohol rehabilitation?: No Counseling given: No Desire information about substance/drug rehabilitation?: No Counseling given: No Lives independently: Yes Household members: significant other Marital status: Single Current occupational status: disabled History of recent travel: No Physical Exam Const: COMMON NORMALS: no acute distress, patient oriented x3 and healthy appearing HENMT: COMMON NORMALS: normocephalic and atraumatic HEAD & SCALP: normoce phalic and atraumatic Eye: COMMON NORMALS: Equal, round and reactive pupils present and EOMs intact bilaterally PUPIL: Yes Equal, round and reactive pupils present Neck/C-Spine: COMMON NORMALS: full ROM and supple Chest: COMMONS NORMALS: normal inspection of the chest and normal palpation of entire chest wall Resp: COMMON NORMALS: normal respiratory effort, No retractions, No use of accessory muscles and clear to auscultation bilaterally AUSCULTATION: clear to auscultation bilaterally Cardio: COMMON NORMALS: regular rate, regular rhythm and No murmurs present (Cardio) RATE: regular rate RHYTHM: regular rhythm GI: COMMON NORMALS: Normal to inspection, nondistended, normoactive bowel sounds present, Soft to palpation, non-tender and no masses PALPATION: Yes Soft to palpation Extremity: COMMON NORMALS: full ROM OTHER: Old scars from bilateral fasciotomies on both lower extremities. No tenderness or swelling of the right lower extremity. The left lower extremity he does have generalized tenderness with positive calf tenderness but the calf is soft. He has an erythematous pustular lesion on the proximal tibial region on the medial aspect with surrounding erythema and tenderness. Positive Homans' sign on the left. Neuro: COMMON NORMALS: patient oriented x3, moves all extremities and no focal motor deficits Psych: COMMON NORMALS: mental status grossly normal, Normal thought process present and cooperative THOUGHT PROCESS: Normal thought process present Skin: COMMON NORMALS: no rashes or lesions noted and no wounds GENERAL SKIN EXAM: no rashes or lesions noted Procedures Abscess I/D Site: lower extremity (left leg) Side (if applicable): left Sedation/analgesia: none Local Anesthetic: lidocaine 1% Amount of anesthesia used (mL): 3 Technique: incised with #11 blade Irrigation: No Packing used?: iodoform Complications: bleeding Course ED course: Patient's pain is resolved after sublingual nitroglycerin, 4mg IV morphine. Nitropaste has been applied to his chest. He is already anticoagulated chronically with apixaban. He does have an elevated D-dimer 0.74. His troponin is also elevated at 80. No acute ischemic EKG changes. Given his impaired renal function with a GFR of 27.2, will hold off on CTA imaging tonight. Patient is pain-free at this time and in no distress. Patient also has an area of cellulitis surrounding an abscess on his left leg which has been incised and drained and a culture sent. We will give the patient a dose of vancomycin. We will plan for the admission to the hospitalist. Consultations: Consultation #1: Discussed with hospitalist who agrees with admission Time: 22:42 Vital Signs: Vital signs: Vital Signs Temperature 98.7 F 05/15/22 16:14 Pulse Rate 93 05/15/22 21:45 Respiratory Rate 20 H 05/15/22 22:10 Blood Pressure 178/79 05/15/22 21:45 Pulse Oximetry 99 05/15/22 21:45 Oxygen Delivery Me thod 05/15/22 16:14 MDM - Extremity (Nontraumatic) Medical Decision Making 51-year-old male who presents with chest pain which has been ongoing for now 6 hours. He is also had left lower extremity pain and swelling for the past 3 to 4 days with a history of DVT and pulmonary embolism. Patient is currently anticoagulated with apixaban. He also has a history of coronary artery disease. We will send a D-dimer as the patient has had a CTA use of his chest last week and I do not want to have to repeat it if I do not have to. We will give the patient sublingual nitroglycerin to see if it changes his pain. The patient took 4 baby aspirin at home today. We will obtain a chest x-ray and labs including serial troponins. We will obtain a venous Doppler of his left lower extremity to rule out DVT. The patient does have an abscess which will need inc ised and drained and I suspect that is the cause of his pain. Medical Records Per recent discharge summary, the patient's recent hospital stay, renal function is stable today. He does have an increased D-dimer from 0.4-0.78. Troponin is also 80 and prior rate was in the 40s. Lab Data 05/15/22 20:30 05/15/22 20:30 Radiology Impressions Venous Duplex 05/15/22 20:37 IMPRESSION: No sonographic evidence of deep vein thrombosis. Laboratory Results WBC 10.7 10^3/uL (4.0-10.0) H 05/15/22 20:30 RBC 3.48 10^6/uL (4.1-5.3) L 05/15/22 20:30 Hgb 10.8 g/dL (11.7-16.6) L 05/15/22 20:30 Hct 32.3 % (42.0-52.0) L 05/15/22 20:30 MCV 92.8 fl (80-94) 05/15/22 20:30 MCH 31.0 pg (28.0-34.0) 05/15/22 20: MCHC 33.4 g/dL (30.0-36.0) 05/15/22 20:30 RDW 14.7 % (12.1-15.1) 05/15/22 20:30 Plt Count 267 10^3/cmm (130-400) 05/15/22 20:30 MPV 9.6 fL (7.4-10.4) 05/15/22 20:30 Neut % (Auto) 73.5 % 05/15/22 20:30 Lymph % (Auto) 13.1 % 05/15/22 20:30 Gilmer % (Auto) 11.5 % 05/15/22 20:30 Eos % (Auto) 1.0 % 05/15/22 20:30 Baso % (Auto) 0.6 % 05/15/22 20:30 Neut # (Auto) 7.84 10^3/uL (1.8-7.7) H 05/15/22 20:30 Lymph # (Auto) 1.4 10^3/uL (0.8-4.8) 05/15/22 20:30 Gilmer # (Auto) 1.2 10^3/uL (0.2-0.9) H 05/15/22 20:30 Eos # (Auto) 0.1 10^3/uL (0.0-0.8) 05/15/22 20: Baso # (Auto) 0.1 10^3/uL (0.0-0.1) 05/15/22 20:30 Nucleated RBC % (auto) 0 % 05/15/22 20: Nucleated RBCs # 0.0 /100WBC 05/15/22 20:30 PT 14.10 SECONDS (12.1-14.9) 05/15/22 20:30 INR 1.05 (0.8-1.2) 05/15/22 20:30 D-Dimer 0.78 ug/mIFEU (0-0.59) H 05/15/22 20:30 Sodium 136 mmol/L (136-145) 05/15/22 20:30 Potassium 3.9 mmol/L (3.5-5.1) 05/15/22 20:30 Chloride 101 mmol/L (98-107) 05/15/22 20:30 Carbon Dioxide 25 mmol/L (22-29) 05/15/22 20:30 Anion Gap 13.9 (5-19) 05/15/22 20:30 BUN 34 mg/dL (6-20) H 05/15/22 20:30 Creatinine 2.5 mg/dL (0.7-1.2) H 05/15/22 20:30 GFR Calculation 27.2 mL/min (90-130) L 05/15/22 20:30 Glucose 60 mg/dL (65-115) L 05/15/22 20:30 Calculated Osmolality 287 mOsm/kg (285-295) 05/15/22 20:30 Calcium 7.8 mg/dL (8.5-10.5) L 05/15/22 20:30 Total Bilirubin 0.4 mg/dL (0.15-1.2) 05/15/22 20:30 AST 12 U/L (0-40) 05/15/22 20:30 ALT 10 U/L (0-41) 05/15/22 20:30 Alkaline Phosphatase 87 U/L (40-130) 05/15/22 20:30 Troponin T Baseline 80 ng/L (0-15) H 05/15/22 20:30 Total Protein 6.2 g/dL (6.6-8.7) L 05/15/22 20:30 Albumin 2.9 g/dL (3.5-5.2) L 05/15/22 20:30 Globulin 3.3 g/dL (1.3-4.6) 05/15/22 20:30 EKG Data EKG 1: I personally reviewed and interpreted this EKG as follows: EKG interpretation date: 05/15/22 EKG interpretation time: 16:15 Interpretation: Normal sinus rhythm, septal Q waves. No acute ischemic ST or T wave changes changes. EKG 2: I personally reviewed and interpreted this EKG as follows: EKG interpretation date: 05/15/22 EKG interpretation time: 20:45 Interpretation: No acute ischemic changes, unchanged from initial EKG Critical Care Time Critical Care Time: Critical Care Time: Yes Total Critical Care Time: 50 Attestation: includes interviewing the patient and the spouse, ordering tests and interpreting them, reassessing the patient, reviewing old charts and discussion with admitting provider. Discharge Plan Discharge Patient Disposition: Admitted As Inpatient Clinical Impression: Chest pain, Elevated troponin, D-dimer, elevated, Cellulitis and abscess of left leg, Renal insufficiency Condition: Stable Coding Level of Care Code ED Rod Straightener for Chg Fwd Exam Comprehensive
[2022-05-15 20:50] LABS: INR 1.05 (0.8-1.2)
[2022-05-15 20:58] LABS: Troponin(5th) Baseline 80 ng/L (0-15)
[2022-05-15] MEDS: promethazine 25 mg/mL SDV 1 mL IM (20:59)
[2022-05-15 21:01] LABS: Alanine Aminotransferase 10 U/L (0-41); Albumin Level 2.9 g/dL (3.5-5.2); Alkaline Phosphatase 87 U/L (40-130); Anion Gap 13.9 (5-19); Aspartate Amino Transferase 12 U/L (0-40); Blood Urea Nitrogen 34 mg/dL (6-20); Calcium 7.8 mg/dL (8.5-10.5); Carbon Dioxide 25 mmol/L (22-29); Chloride 101 mmol/L (98-107); Globulin 3.3 g/dL (1.3-4.6); Glomerular Filtration Rate 27.2 mL/min (90-130); Glucose 60 mg/dL (65-115); Osmolality Calculated 287 mOsm/kg (285-295); Potassium 3.9 mmol/L (3.5-5.1); Sodium 136 mmol/L (136-145); Total Bilirubin 0.4 mg/dL (0.15-1.2); Total Protein 6.2 g/dL (6.6-8.7)
[2022-05-15 21:10] LABS: D Dimer 0.78 ug/mIFEU (0-0.59)
[2022-05-15 21:45] VITALS: BP 178/79; PULSE 93; RESP 20; O2SAT 99
[2022-05-15] MEDS: nitroglycerin 1 gm/inch oint Pkt 1 INCH TOPICAL (22:03)
[2022-05-15 22:10] VITALS: RESP 20
[2022-05-15] MEDS: morphine 4 mg/mL SDV 1 mL IVP (22:10)
[2022-05-15 22:51] LABS: Troponin 5 2HR 77.04 ng/L (0-15)
[2022-05-15 22:56] LABS: Troponin 5 2HR Delta -2.96 ABS# (0-10)
[2022-05-15] MEDS: vancomycin 1,500 MG/300 ML PIGGYBACK 250 MG IV (23:00)
--- NOTE | 2022-05-15 23:16 | PM.HP ---
Providers/Chief Complaint Primary Care Provider: Kp Montanez DO Chief Complaint: Bilateral Knee Pain History of Present Illness Rei Queen II is a 51 year old male with a past medical history of CAD status post stenting, CKD, hypertension, hyperlipidemia, insulin-dependent type 2 diabetes mellitus, history of DVT, on Eliquis, history of compartment syndrome, hypothyroidism, who presents to [facility] due to complaints of chest pain. Patient tells me that he was recently discharged from the hospital however he continues to have substernal pressure-like chest pain like something sitting on his chest, the chest pain has becoming more severe, more frequent, he is also experiencing generalized weakness, he also tells me that just before he left the hospital he was developing some redness on his left cross, which when he got home started to evolve becoming red and hot, he was diagnosed with an abscess down the emergency room and had an incision and drainage he tells me he feels better after incision and drainage. Review of Systems Const: Denies: fever(s) Card: Reports: chest pain; Denies: palpitations Resp: Denies: dyspnea GI: Denies: abdominal pain : Denies: flank pain or difficulty urinating Skin/Breast: Reports: rash and erythema Medications/Allergies Home Medications Medication Instructions Recorded Confirmed Last Taken Type aspirin 81 mg tablet,delayed 81 mg PO DAILY@0600 06/01/19 05/06/22 05/05/22 History release dulaglutide 0.75 mg/0.5 mL 0.75 mg SUBCUT Q7D 06/01/19 05/06/22 05/05/22 History subcutaneous pen injector (Trulicity) multivitamin (Daily Multi-Vitamin 1 tab PO QPM 06/01/19 05/06/22 05/05/22 History tablet) cyclobenzaprine 10 mg tablet 10 mg PO TID PRN MUSCLE SPASMS 01/07/20 05/06/22 04/25/22 History insulin lispro 100 unit/mL See Rx Instructions .Route 09/25/20 05/06/22 04/25/22 History subcutaneous solution (Humalog .COMPLEX see pharmacy comments U-100 Insulin) nitroglycerin 0.4 mg sublingual 0.4 mg sublingual Q5M PRN Chest 10/10/20 05/06/22 04/25/22 Rx tablet (Nitrostat) Pain #25 tabs levothyroxine 88 mcg tablet 88 mcg PO QAM 02/09/21 05/06/22 05/05/22 History promethazine 25 mg tablet 25 mg PO Q6H PRN Pain 02/22/21 05/06/22 04/25/22 History amlodipine 5 mg tablet 5 mg PO DAILY #0 tabs 04/17/21 05/06/22 04/25/22 Rx metoprolol tartrate 50 mg tablet 25 mg PO BID@0600,1800 #0 tabs 04/17/21 05/06/22 04/25/22 Rx lidocaine 5 % topical patch 1 patch transdermal PRN PRN Pain 05/12/21 05/06/22 04/25/22 History isosorbide mononitrate 30 mg 30 mg PO BID@0600,1800 #180 tabs 05/22/21 05/06/22 04/25/22 Rx tablet,extended release 24 hr docusate sodium 100 mg capsule 100 mg PO BID #30 caps 06/15/21 05/06/22 04/25/22 Rx (Colace) apixaban 2.5 mg tablet (Eliquis) 2.5 mg PO BID 09/14/21 05/06/22 05/05/22 History insulin degludec 200 unit/mL (3 38 unit SUBCUT BEDTIME 12/11/21 05/06/22 05/05/22 History mL) subcutaneous pen (Tresiba FlexTouch U-200 insulin) atorvastatin 40 mg tablet 40 mg PO QAM #90 tabs 12/19/21 05/06/22 05/05/22 Rx mupirocin 2 % topical ointment 1 applic topical BID 2 weeks #22 12/25/21 05/06/22 04/25/22 Rx grams ranolazine 500 mg tablet,extended 500 mg PO BID #180 tabs 01/02/22 05/06/22 05/05/22 Rx release,12 hr (Ranexa) oxycodone 5 mg tablet 5 mg PO Q4H PRN pain #10 tabs 01/24/22 05/06/22 04/25/22 Rx bupropion HCl 300 mg 24 hr tablet, 300 mg PO QAM #30 tabs 03/01/22 05/06/22 05/05/22 Rx extended release (Wellbutrin XL) buspirone 5 mg tablet 5 mg PO TID #90 tabs 03/01/22 05/06/22 05/05/22 Rx citalopram 40 mg tablet 40 mg PO DAILY #30 tabs 03/01/22 05/06/22 04/25/22 Rx trazodone 100 mg tablet 400 mg PO BEDTIME PRN insomnia 03/01/22 05/06/22 04/25/22 Rx #120 tabs bumetanide 2 mg tablet 2 mg PO BID 30 days #60 tabs 05/11/22 05/06/22 05/05/22 Rx potassium chloride 20 mEq 10 meq PO DIRECTED 30 days #30 05/11/22 05/06/22 04/25/22 Rx tablet,extended release(part/cryst) tabs Allergies Allergy/AdvReac Type Severity Reaction Status Date / Time Iodinated Contrast Media Allergy Severe ALGY-Difficulty Verified 04/25/22 09:08 Breathing iodine Allergy Severe ALGY-Difficulty Verified 04/25/22 09:08 Breathing metoclopramide [From Reglan] Allergy Severe ALGY-Difficulty Verified 04/25/22 09:08 Breathing nalbuphine [From Nubain] Allergy Severe ADR-Diarrhe Verified 04/25/22 09:08 a naproxen [From Naprosyn] Allergy Severe ADR-Vomitin Verified 04/25/22 09:08 g Sulfa (Sulfonamide Allergy Severe ALGY-Difficulty Verified 04/25/22 09:08 Antibiotics) Breathing ketorolac Allergy Intermediate ADR-Nausea Verified 04/25/22 09:08 ondansetron [From Zofran] Allergy Intermediate ADR-Abdominal Verified 04/25/22 09:08 Pain prochlorperazine Allergy Intermediate ADR-Irritab Verified 04/25/22 09:08 [From Compazine] le codeine AdvReac Severe ALGY-Anaphy Verified 04/25/22 09:08 laxis haloperidol [From Haldol] AdvReac Intermediate ADR-Irritab Verified 04/25/22 09:08 le PFSH Acute PFSH: Medical History Acute on chronic congestive heart failure Anemia Atherosclerotic heart disease of [place] coronary artery with other forms of angina pectoris hx of CAD with prior stenting of proximal LAD, LCx, RCA Chronic anticoagulation Eliquis Chronic kidney disease -baseline Cr appears to be around 1.5 Chronic systolic heart failure The current echocardiogram revealed LV ejection fraction of 35 to 40% Depression Diabetes A1c-7.6 (08/2019) Foot drop, left GERD (gastroesophageal reflux disease) H/O acute myocardial infarction H/O deep venous thrombosis developed compartment syndrome Hyperlipidemia Hypertension Hypothyroidism Ischemic cardiomyopathy Major depressive disorder, recurrent severe without psychotic features Osteoarthritis of spine Surgical History H/O colonoscopy (11/14/20) 08/2015 H/O esophagogastroduodenoscopy (11/14/20) 08/2015 H/O removal of testicle left H/O skin graft H/O vasectomy History of appendectomy 1995 History of coronary artery stent placement 5x History of excision of mass 06/08/2019: Subcutaneous mass on back History of inguinal hernia repair, bilateral 1999 History of removal of Port-a-Cath Hx of cholecystectomy Peritoneal dialysis catheter in situ (06/15/21) Port-A-Cath in place Family History Grandfather Cancer skin cancer Parkinson disease Brother Hypertension Father Heart disease Mother Hypertension Stroke Aneurysm Grandmother Aneurysm Other Crohn disease Denies family history of Anesthesia complication Bleeding disorder Social History Smoking and tobacco status: never smoked Second hand smoke exposure: No Smoking risk assessment/counseling performed?: No Alcohol intake: former Year of sobriety/quit date alcohol: 2015 Former alcohol use details: Only holidays Desire information about alcohol rehabilitation?: No Counseling given: No Desire information about substance/drug rehabilitation?: No Counseling given: No Lives independently: Yes Household members: significant other Marital status: Single Current occupational status: disabled History of recent travel: No Vitals/I&O/Wt Last Vital Signs Temp 98.7 F 05/15/22 16:14 Pulse 93 05/15/22 21:45 Resp 20 H 05/15/22 22:10 BP 178/79 05/15/22 21:45 Pulse Ox 99 05/15/22 21:45 O2 Del Method 05/15/22 16:14 Weight last 48 hrs Weight 104.326 kg Physical Exam Const: COMMON NORMALS: no acute distress and patient oriented x3 HENMT: COMMON NORMALS: normocephalic HEAD & SCALP: normocephalic Eye: COMMON NORMALS: Equal, round and reactive pupils present and EOMs intact bilaterally Neck/C-Spine: COMMON NORMALS: no JVD Lymph: LYMPHATIC: no lymphadenopathy noted Resp: COMMON NORMALS: normal respiratory effort, No retractions, No use of accessory muscles and clear to auscultation bilaterally AUSCULTATION: clear to auscultation bilaterally Cardio: COMMON NORMALS: no JVD, regular rate, regular rhythm, S1 normal heart sound present and S2 normal heart sound present RATE: regular rate RHYTHM: regular rhythm HEART SOUNDS: S1 normal heart sound present and S2 normal heart sound present GI: COMMON NORMALS: Normal to inspection, nondistended, normoactive bowel sounds present, Soft to palpation, non-tender, no masses and no bruits PALPATION: Yes Soft to palpation Extremity: COMMON NORMALS: capillary refill normal, no clubbing, cyanosis or edema, no calf tenderness and no pedal edema Neuro: COMMON NORMALS: patient oriented x3, CN's II-XII intact bilaterally, moves all extremities and no focal motor deficits Psych: COMMON NORMALS: mental status grossly normal Skin: NARRATIVE SKIN EXAM: Bilateral lower extremity, fasciotomy scars Left lower extremity, area of cellulitis erythema, swelling, warmth measuring 3 x 30 cm round, area of abscess drainage, incision measuring 1 cm long, vertical, dressing on top Data 05/15/22 20:30 05/15/22 20:30 A&P Assessment and plan (1) Chest pain: (2) Cellulitis and abscess of left leg: (3) Acute kidney injury superimposed on CKD: (4) 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 mellitus: (5) Chronic systolic heart failure: (6) Hypertension: Plan Chest pain -Serial EKGs, serial troponins, telemetry monitoring -N.p.o. midnight -Aspirin, statin, beta-zaira, Ranexa, Eliquis -Has a Nitropaste on -Cardiac stress test tomorrow morning Left leg -Abscess drainage, status post incision and drainage, continue dressing changes -With surrounding cellulitis, has received vancomycin -Can transition to p.o. Augmentin and doxycycline -MRSA PCR, blood cultures Type 2 diabetes mellitus, moderate dose sliding scale History of DVT continue Eliquis History of CHF not in exacerbation continue Bumex History of CKD, creatinine 2.5 monitor Attestations Medical Necessity Statement*: Patient requires hospitalization, for chest pain, cellulitis, abscess, outpatient with observation Coding Level of Care Code Acute Pie Bottomer for g Fwd Diagnoses Chest pain R07.9 Cellulitis and abscess of left leg L03.116; L02.416 Acute kidney injury superimposed on CKD N17.9; N18.9 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 mellitus E11.42 Chronic systolic heart failure I50.22 Hypertension I10
[2022-05-15 23:21] LABS: C Reactive Protein 98.8 mg/L (0.0-4.9)
[2022-05-15 23:27] LABS: Procalcitonin 0.08 ng/mL (0-0.5)
[2022-05-15 23:45] LABS: NT Pro B Type Natriuretic Pept 9489 pg/mL (0-125)
[2022-05-15 23:46] VITALS: BP 144/71; PULSE 90; RESP 18; O2SAT 95
[2022-05-16] VITALS (14 sets, daily range): BP systolic 133–182; BP diastolic 62–85; PULSE 76–98; RESP 15–20; TEMP 36.7–37.4; O2SAT 90–95
--- NOTE | 2022-05-16 00:25 | ECG_ITS ---
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 Measurements Intervals Brandon Rate: 91 P: 30 NJ: 162 QRS: 36 QRSD: 102 T: 54 QT: 376 QTc: 463 Interpretive Statements SINUS RHYTHM POSSIBLE ANTERIOR MYOCARDIAL INFARCTION , OF INDETERMINATE AGE [30 ms Q WAVE IN V3/V4, OR R < 0.2 mV IN V4] Compared to ECG 05/15/2022 20:41:15 No significant changes Electronically Signed On 05-16-2022 16:54:42 APPEALS RN by Tory Lopez M.D. [id number]
--- NOTE | 2022-05-16 00:47 | ECG_ITS ---
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 Interpretive Statements NAME OF STUDY: LEXISCAN SESTAMIBI STRESS TEST INDICATION: Chest Pain PROCEDURE: At the baseline, the EKG revealed normal sinus rhythm with a poor R wave progression. Diffuse nonspecific T wave changes. The baseline heart was 75 bpm with a blood pressue of 127/62 mm of Hg Lexiscan was infused over a period of 20 seconds. A total of 0.4 milligrams of Lexiscan was infused. The stress phase was continued for a total of 5 minutes. Heart rate at the end of the stress phase was 80 bpm with a blood pressure 108/58 mm of Hg. The EKG at the peak infusion revealed no significant changes occasional PVCs are noted on the monitor. Sestamibi was injected 20 seconds after the Lexiscan infusion. Heart rate at the end of the recovery phase was 79 bpm with a blood pressure of 125/88 mm of Hg. CONCLUSION: 1. No significant EKG changes with the LexiScan infusion 2. No LexiScan induced chest pain or cardiac arrhythmia 3. Normal blood pressure and heart rate response to Lexiscan infusion 4. Sestamibi/sestamibi perfusion scan pending; see separate report. Electronically Signed On 05-17-2022 18:10:55 HOP STRAINER by Karen Choi M.D. [id number]
[2022-05-16] MEDS: oxyCODONE 5 mg IR Tab/Cap PO ×4 (01:12→20:34)
[2022-05-16] MEDS: pantoprazole 40 mg SDV IVP (01:12)
[2022-05-16] MEDS: trazodone 100 mg Tablet 400 MG PO ×2 (01:43→20:35)
[2022-05-16 03:25] LABS: Basophils # 0.1 10^3/uL (0.0-0.1); Basophils % 0.6 %; Eosinophils # 0.2 10^3/uL (0.0-0.8); Eosinophils % 1.7 %; Hematocrit 30.2 % (42.0-52.0); Hemoglobin 9.9 g/dL (11.7-16.6); Lymphocytes # 1.5 10^3/uL (0.8-4.8); Lymphocytes % 17.5 %; Mean Corpuscular HGB Conc 32.8 g/dL (30.0-36.0); Mean Corpuscular Hemoglobin 30.8 pg (28.0-34.0); Mean Corpuscular Volume 94.1 fl (80-94); Mean Platelet Volume 9.8 fL (7.4-10.4); Monocytes # 0.9 10^3/uL (0.2-0.9); Neutrophils # 5.91 10^3/uL (1.8-7.7); Neutrophils % 68.9 %; Nucleated Red Blood Cells % 0 %; Platelet Count 236 10^3/cmm (130-400); Red Blood Count 3.21 10^6/uL (4.1-5.3); Red Cell Distribution Width 14.7 % (12.1-15.1); White Blood Count 8.6 10^3/uL (4.0-10.0)
[2022-05-16 03:49] LABS: Troponin 5 6HR 80.14 ng/L (0-15)
[2022-05-16 03:51] LABS: Anion Gap 12.7 (5-19); Blood Urea Nitrogen 33 mg/dL (6-20); Calcium 7.5 mg/dL (8.5-10.5); Carbon Dioxide 27 mmol/L (22-29); Chloride 102 mmol/L (98-107); Glomerular Filtration Rate 29.9 mL/min (90-130); Glucose 55 mg/dL (65-115); Osmolality Calculated 291 mOsm/kg (285-295); Potassium 3.7 mmol/L (3.5-5.1); Sodium 138 mmol/L (136-145)
[2022-05-16 03:58] LABS: Troponin 5 6HR Delta 0.14 ng/L (0-12)
[2022-05-16 03:59] LABS: Thyroid Stimulating Hormone 3.56 uIU/mL (0.27-4.20)
[2022-05-16 04:04] LABS: Add Urine Microscopic? YES; Bilirubin Urine Neg (Negative); Blood Urine Trace (Negative); Glucose Urine UA Norm (Normal); Ketones Urine Negative (Negative); Leukocyte Esterase Urine Negative (Negative); Nitrate Urine Negative (Negative); Protein Urine 3+ (Negative); Specific Gravity, Urine 1.005 (1.005-1.030); Urine Appearance Clear (CLEAR); Urine Color Yellow (Yellow); Urobilinogen Urine Norm (Negative); pH Urine 7 (5-7)
[2022-05-16 04:05] LABS: Add Urine Culture? No; RBC Urine 0-4 /hpf (0-2); Squamous Epithelial Cell Urine 0-4 /hpf (0-5)
[2022-05-16] MEDS: atorvastatin 40 mg Tablet PO (05:27)
[2022-05-16] MEDS: aspirin 81 mg EC Tablet PO (05:27)
[2022-05-16] MEDS: buPROPion XL (24 HR) 300 mg Tablet PO (05:27)
[2022-05-16] MEDS: levothyroxine 88 mcg Tablet PO (05:27)
[2022-05-16] MEDS: metoprolol tartrate 50 mg Tablet 25 MG PO ×2 (05:30→17:32)
[2022-05-16 06:33] LABS: Glucose Point of Care 55 mg/dL (70-110)
--- NOTE | 2022-05-16 06:39 | PC.NURSE ---
Pt CBG this am 53 this am. Asymptomatic at this time. Pt provided juice per protocol.
--- NOTE | 2022-05-16 06:41 | PC.NURSE ---
Notified Dr. Juarez of pt CBG and intervention. Awaiting orders.
[2022-05-16 07:04] LABS: Glucose Point of Care 56 mg/dL (70-110)
[2022-05-16 08:53] LABS: Glucose Point of Care 65 mg/dL (70-110)
[2022-05-16 09:03] LABS: Glucose Point of Care 72 mg/dL (70-110)
[2022-05-16] MEDS: doxycycline 100 mg Tablet PO ×2 (09:08→17:30)
[2022-05-16] MEDS: bumetanide 1 mg Tablet 2 MG PO ×2 (09:08→17:30)
[2022-05-16] MEDS: apixaban 5 mg Tablet 2.5 MG PO ×2 (09:08→17:30)
[2022-05-16] MEDS: BuSPIRONE 10 mg Tablet 5 MG PO ×3 (09:08→20:34)
[2022-05-16] MEDS: amoxicillin-clav 875-125 mg Tablet 1 TAB PO ×2 (09:08→17:30)
[2022-05-16] MEDS: ranolazine (12HR) 500 mg Tablet PO ×2 (09:08→17:30)
[2022-05-16] MEDS: amlodipine 5 mg Tablet PO (09:08)
[2022-05-16] MEDS: citalopram 20 mg Tablet 40 MG PO (09:08)
[2022-05-16 09:54] LABS: Glucose Point of Care 96 mg/dL (70-110)
--- NOTE | 2022-05-16 10:42 | PC.CHAP ---
Pastoral Care Encounter/Spiritual Assessment Type of Contact [] Declined computer technical support specialist visit [] Patient/Family/Request visit [] Outpatient visit [] Follow-up visit [] Physician referral [] Code/Alert [x] Routine visit [] Staff referral [] Actively dying [] Patient sleeping [] Family support [] [] Out of room [] Palliative care [] [] Receiving care in room [] Pre-surgical visit [] Trauma [] Long length of stay [] ICU visit [] Other: Relational/Emotional Strength [x] Patient feels connected with others/family/visitors/staff [] Distress [] Loneliness/isolation [] Abandonment Spirituality of Patient [x] Person of Shannon [x] Attends Jewish of their Shannon [x] Believes in Prayer [x] Reads Bible or Jainism materials [] There are Spiritual issues to be addressed Office Support Specialist Interventions [] Prayer [x] Active listening [x] Non-anxious presence [x] Spiritual/emotional support [] Crisis/trauma care [] Spiritual counseling [] Bereavement support [] Provided bereavement packet [] Provided Bible/devotional materials [] Provided toy/stuffed animal, coloring book to patient or family member [] Provided Communion [] Anointing/Lenora [] Salvation [x] Completed spiritual assessment [] Other: Impact on Illness or Injury [] Angry [] Fearful [] Anxious [] Often cries [] Exhaustion [] Unable to work [] Unable to attend lutheran [] Unable to walk/stand [] Unable to read [] Unable to drive [] Unable to eat/drink [] Unable to sleep [] Unable to be with family [] Patient intubated [] Other: Summary Pt's present for visit. Pt has multiple health problems but in good spirits. He related his upbeat spirit with his strong shannon. He is a life long member of the [employer] community and very active in his nondenominational. One of his favorite things to do is to go and visit various temples around the [place]. He has not yet been to the tenriism in [facility] but it is on his bucket list. Visit cut short when staff came in to work on Pt. Time spent with patient 20 m
--- NOTE | 2022-05-16 13:04 | PC.OT ---
OT order received and chart reviewed. OT attempted evaluation though patient was at stress test. Will attempt later today if able or attempt again tomorrow. Tristen Jovel, OTR/L
[2022-05-16 13:36] LABS: Glucose Point of Care 67 mg/dL (70-110)
--- NOTE | 2022-05-16 13:45 | PC.NURSE ---
stress test not able to be completed today due to the pt not having an iv access. floor nurse attempted multiple times with no complete success. [facility] and dr will reevaluate for tomorrow.
[2022-05-16] MEDS: dextrose 10% 1,000 ML 50 ML IV (13:46)
[2022-05-16 16:45] LABS: Glucose Point of Care 113 mg/dL (70-110)
--- NOTE | 2022-05-16 18:08 | PM.MISC ---
Miscellaneous Note Purpose of Documentation: Cross coverage note. Note: Admitted overnight with rectal prolapse appreciated. Plan for Lexiscan today which could not be done because of issues with IV line. Having episodes of hypoglycemia. Finally had IV line placed through anesthesia. Plan for Lexiscan in a.m. Start D10 while patient is NPO. Hypoglycemia protocol. Hold off on any Lantus. N.p.o. after midnight for Lexiscan in a.m.
[2022-05-16 21:21] LABS: Glucose Point of Care 102 mg/dL (70-110)
[2022-05-17] VITALS (11 sets, daily range): BP systolic 116–167; BP diastolic 44–79; PULSE 76–87; RESP 15–20; TEMP 36.7–37.1; O2SAT 90–93
[2022-05-17] MEDS: oxyCODONE 5 mg IR Tab/Cap PO ×3 (00:44→17:06)
[2022-05-17] MEDS: pantoprazole 40 mg SDV IVP (00:45)
[2022-05-17] MEDS: buPROPion XL (24 HR) 300 mg Tablet PO (05:26)
[2022-05-17] MEDS: atorvastatin 40 mg Tablet PO (05:26)
[2022-05-17] MEDS: metoprolol tartrate 50 mg Tablet 25 MG PO ×2 (05:26→17:06)
[2022-05-17] MEDS: aspirin 81 mg EC Tablet PO (05:27)
[2022-05-17] MEDS: levothyroxine 88 mcg Tablet PO (05:27)
--- NOTE | 2022-05-17 05:37 | NMCV_ITS ---
NM michelle perf SPECT r/s* [id number] Rei Queen Age: 51 Gender: M : 1970 Exam Date: 05/17/2022 05:37 Ordering Phys: Rafiq Mariee MD Technologist: BALDEMAR Hutchison Exam Location: [facility] Indications: CHEST PAIN STRESS TEST Please see separate stress test report in [facility] for full findings IMAGE PROTOCOL Rest/Stress 1 Lexiscan Day Radiopharmaceutical Dose (mCi) Administration Site Administered by Rest: Tc-99m 10.9 IV BALDEMAR Johnston Sestamibi Stress:Tc-99m 32.9 IV BALDEMAR Johnston Sestamibi Rest: 17-May-2022 60 Discovery 630 Stress: 17-May-2022 30 Discovery 630 0.4mg Lexiscan. Supine position only as patient was unable to lay prone. SPECT RESULTS Technical Quality: Excellent Raw Data Analysis: Normal Image Corrections: No attenuation or motion correction applied Summed Stress Score: 18 Summed Rest Score: 23 Summed Difference Score: 0 PERFUSION FINDINGS Moderate area of moderate to severely decreased tracer uptake was noted in the inferior wall, all apical segments and in the LV apex. No reversibility was noted in these regions FUNCTIONAL RESULTS (calculated via Gated SPECT) Stress Image LV EF (%): 36 Stress EDV (mL):196 TID: 1.04 Stress ESV (mL):125 FUNCTIONAL FINDINGS: Segmental wall motion analysis revealed severe diffuse hypokinesia of the apex, septum and mild diffuse hypokinesia of the inferior wall segments. Moderately dilated LV cavity. Normal transischemic dilatation ratio IMPRESSIONS 1. Myocardial perfusion imaging revealing moderate area of persistent decreased tracer uptake in the inferior wall and all apical segments including the LV apex suggesting myocardial scarring, in the distribution of all the 3 coronary arteries. 2. Segmental wall motion analysis revealing multiple wall motion normalities as mentioned above. 3. LV ejection fraction is estimated to be 36%. 4. Moderately dilated LV cavity with an end-systolic volume of 125ml. Low probability for coronary ischemia, based on the above findings Dr Karen Choi MD [facility] (Electronically Signed) Final Date: 17 May 2022 16:44 S
[2022-05-17 05:40] LABS: Glucose Point of Care 146 mg/dL (70-110)
[2022-05-17 06:20] LABS: Glucose Point of Care 100 mg/dL (70-110)
[2022-05-17] MEDS: regadenoson 0.4 Mg/5 ml Syringe IVP (07:47)
[2022-05-17] MEDS: doxycycline 100 mg Tablet PO ×2 (08:55→17:06)
[2022-05-17] MEDS: bumetanide 1 mg Tablet 2 MG PO ×2 (08:55→17:06)
[2022-05-17] MEDS: ranolazine (12HR) 500 mg Tablet PO ×2 (08:55→17:06)
[2022-05-17] MEDS: amoxicillin-clav 875-125 mg Tablet 1 TAB PO ×2 (08:55→17:06)
[2022-05-17] MEDS: citalopram 20 mg Tablet 40 MG PO (08:55)
[2022-05-17] MEDS: BuSPIRONE 10 mg Tablet 5 MG PO ×3 (08:55→20:33)
[2022-05-17] MEDS: apixaban 5 mg Tablet 2.5 MG PO ×2 (08:55→17:06)
[2022-05-17] MEDS: amlodipine 5 mg Tablet PO (08:56)
[2022-05-17 10:45] LABS: Glucose Point of Care 345 mg/dL (70-110)
--- NOTE | 2022-05-17 11:05 | PC.CHAP ---
Pastoral Care Encounter/Spiritual Assessment Type of Contact [] Declined pediatric audiologist visit [] Patient/Family/Request visit [] Outpatient visit [] Follow-up visit [] Physician referral [] Code/Alert [x] Routine visit [] Staff referral [] Actively dying [] Patient sleeping [] Family support [] [] Out of room [] Palliative care [] [x] Receiving care in room [] Pre-surgical visit [] Trauma [] Long length of stay [] ICU visit [] Other: Relational/Emotional Strength [x] Patient feels connected with others/family/visitors/staff [] Distress [] Loneliness/isolation [] Abandonment Spirituality of Patient [x] Person of Shannon [] Attends Evangelical of their Shannon [x] Believes in Prayer [] Reads Bible or Christianity materials [] There are Spiritual issues to be addressed Account Executive Interventions [x] Prayer [x] Active listening [x] Non-anxious presence [x] Spiritual/emotional support [] Crisis/trauma care [x] Spiritual counseling [] Bereavement support [] Provided bereavement packet [] Provided Bible/devotional materials [] Provided toy/stuffed animal, coloring book to patient or family member [] Provided Communion [] Anointing/Coden [] Salvation [x] Completed spiritual assessment [] Other: Impact on Illness or Injury [] Angry [] Fearful [x] Anxious [] Often cries [] Exhaustion [] Unable to work [] Unable to attend zoroastrian [] Unable to walk/stand [] Unable to read [] Unable to drive [] Unable to eat/drink [] Unable to sleep [] Unable to be with family [] Patient intubated [] Other: Summary had an infection elpidio and leg will drain floods negative attitude will take time but well go home +1 Time spent with patient 10 mins
--- NOTE | 2022-05-17 11:20 | USCV_ITS ---
[place] Rei Age: 51 Gender: M : 1970 Exam Date: 05/17/2022 15:05 Ordering Phys: Rafiq Mariee MD Technologist: Amadou Thompson [place] [facility] [place] pain Risk Factors: Previous Vascular Surgery: RIGHT LEFT BP: 140.0 / 80.00 BP: 140.0/ 80.00 0 0 Waveform Velocity (cm/s) Velocity (cm/s) Waveform Triphasic 115.7 Iliac Prox 152.9 Triphasic Triphasic 117.0 Iliac Mid 131.3 Triphasic Triphasic 132.8 Iliac Distal 134.9 Triphasic Triphasic 102.5 MIDDLE SCHOOL SPANISH TEACHER 149.3 Triphasic Triphasic 123.6 SFA Prox 152.9 Triphasic Triphasic 113.1 SFA Mid 138.5 Triphasic Monophasic SFA Dist Triphasic 114.4 106.1 Monophasic 101.2 POP 89.9 Monophasic Monophasic 160.8 AUTOMOTIVE MACHINIST APPRENTICE 124.1 Monophasic Monophasic 50.0 DPA 63.0 Monophasic 1.0 YRN 0.5 FINDINGS Resting YRN of 1.0 on the right side. Resting YRN of 0.5 on the left side CONCLUSIONS Abnormal resting YRN of 0.5 on the right side, suggesting of severe peripheral artery disease possibly involving the popliteal and infrapopliteal vessels. Normal resting YRN on the right side, suggesting no significant arterial obstruction Dr Karen Choi MD [facility] (Electronically Signed) Final Date: 18 May 2022 17:39 S
[2022-05-17] MEDS: insulin lispro 100 unit/1 mL SUBCUT ×2 (11:53→21:22)
[2022-05-17 12:27] LABS: Creatine Phosphokinase 111 U/L (39-308)
[2022-05-17 12:42] LABS: Folate Level 9.6 ng/mL (4.5-32.2)
[2022-05-17 12:43] LABS: Vitamin B12 919 pg/mL (232-1245)
--- NOTE | 2022-05-17 15:01 | P.PN_ITS ---
Subjective Subjective: No acute events overnight. Today patient underwent Lexiscan stress test. Sitting in recliner. Complaining of pain at the bottom of his feet which is making it difficult for him to move. Otherwise has remained hemodynamic stable and afebrile. Patient states he still having pain in the chest. On asking when was his last cardiac angiogram he said it was around 4 to 5 years ago. On reminding that he possibly had an angiogram late last year at our hospital and 1 at a different hospital earlier this year he stated that on reminding him he does remember having both a cardiac angiogram which were reported normal. Vitals/I&O/Wt Last Vital Signs Temp 98.1 F 05/17/22 11:27 Pulse 79 05/17/22 11:27 Resp 17 05/17/22 11:27 BP 149/45 05/17/22 11:27 Pulse Ox 92 05/17/22 11:27 O2 Del Method 05/17/22 11:27 05/17/22 05/17/22 05/17/22 06:59 14:59 22:59 Intake Total 0 / 713.333 960 / 960 Output Total 925 / 925 Balance -925 / -211.667 960 / 960 Weight last 48 hrs Weight 112.604 kg Weight 114.022 kg Weight 104.326 kg Physical Exam Const: COMMON NORMALS: no acute distress and patient oriented x3 HENMT: COMMON NORMALS: normocephalic HEAD & SCALP: normocephalic Eye: COMMON NORMALS: Equal, round and reactive pupils present and EOMs intact bilaterally PUPIL: Yes Equal, round and reactive pupils present Neck/C-Spine: COMMON NORMALS: no JVD Lymph: LYMPHATIC: no lymphadenopathy noted Resp: COMMON NORMALS: normal respiratory effort, No retractions, No use of accessory muscles and clear to auscultation bilaterally AUSCULTATION: clear to auscultation bilaterally Cardio: COMMON NORMALS: no JVD, regular rate, regular rhythm, S1 normal heart sound present and S2 normal heart sound present RATE: regular rate RHYTHM: regular rhythm HEART SOUNDS: S1 normal heart sound present and S2 normal heart sound present GI: COMMON NORMALS: Normal to inspection, nondistended, normoactive bowel sounds present, Soft to palpation, non-tender, no masses and no bruits PALPATION: Yes Soft to palpation Extremity: COMMON NORMALS: capillary refill normal, no clubbing, cyanosis or edema, no calf tenderness and no pedal edema Neuro: COMMON NORMALS: patient oriented x3, CN's II-XII intact bilaterally, moves all extremities and no focal motor deficits Psych: COMMON NORMALS: mental status grossly normal Skin: NARRATIVE SKIN EXAM: Bilateral lower extremity, fasciotomy scars Left lower extremity, area of cellulitis erythema, swelling, warmth measuring 3 x 30 cm round, area of abscess drainage, incision measuring 1 cm long, vertical, dressing on top Data 05/16/22 02:52 05/16/22 02:52 Micro: Microbiology 05/15/22 22:10 Gram Stain - Final Leg - Abscess Wound Culture - Preliminary Coag positive Staphylococcus 05/16/22 02:52 Blood Culture - Preliminary Blood NEGATIVE TO DATE 05/15/22 22:28 Blood Culture - Preliminary Blood NEGATIVE TO DATE A&P Assessment and plan (1) Chest pain: Seen multiple times in the past for similar complaints. Multiple cardiac angiogram as per the chart with patent stents. Lexiscan stress test done today. We will continue to follow. Troponin cycled negative. Continue with aspirin, statin, Imdur, beta-zaira. (2) Cellulitis and abscess of left leg: Post I&D. Continue wound care. MRSA swab, follow-up cultures. For now continue with Augmentin and vancomycin. If MRSA is negative will discontinue vancomycin. (3) 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 mellitus: Patient complaining of bilateral lower foot pain most likely related to neuropathy. Start on gabapentin 3 mg 3 times daily, Requip 1 mg nightly. Change oxycodone 5 mg every 4 hourly to every 6 hourly as needed Continue with home dose of bupropion and BuSpar. (4) Chronic systolic heart failure: Fairly compensated right now. Continue to monitor. (5) Hypertension: Goal blood pressure less than 140/90 mmHg. (6) CRF (chronic renal failure): Creatinine at baseline. Continue to monitor. Medical reconciliation done for nephrotoxic drugs. (7) Chronic anticoagulation: Continue with chronic Eliquis for history of DVT and PE in the past. Plan Full code. Carb consistent diet. Protonix for PUD prophylaxis Eliquis is suffice DVT prophylaxis Discharge planning: Patient requesting discharge to SNF for further rehabilitation as his is not able to take care of him at his home anymore. Case management alerted. Attestations Medical Necessity Statement*: Requires further hospitalization for management of recurrent chest pain in a patient with history of CAD, congestive heart failure, diabetic peripheral neuropathy while safe discharge planning is sought. Time Spent in Patient Care: Greater than 35 minutes Coding Level of Care Code Acute Licensed Life And Health Agent for [facility] Fwd Diagnoses Chest pain R07.9 Cellulitis and abscess of left leg L03.116; L02.416 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 mellitus E11.42 Chronic systolic heart failure I50.22 Hypertension I10 CRF (chronic renal failure) N18.9 Chronic anticoagulation Z79.01
[2022-05-17] MEDS: gabapentin 300 mg Capsule PO ×2 (15:30→20:33)
[2022-05-17 16:53] LABS: Glucose Point of Care 108 mg/dL (70-110)
[2022-05-17] MEDS: isosorbide mononitrate ER 30 mg Tablet PO (17:07)
[2022-05-17 20:32] LABS: Glucose Point of Care 239 mg/dL (70-110)
[2022-05-17] MEDS: ropinirole 1 mg Tablet PO (20:33)
[2022-05-17] MEDS: insulin glargine 100 units/1 mL 30 UNIT SUBCUT (21:22)
[2022-05-18] VITALS (16 sets, daily range): BP systolic 107–148; BP diastolic 52–83; PULSE 72–115; RESP 6–31; TEMP 36.6–39.3; O2SAT 72–98
[2022-05-18] MEDS: pantoprazole 40 mg SDV IVP (00:05)
[2022-05-18 04:12] LABS: Basophils # 0.1 10^3/uL (0.0-0.1); Basophils % 0.7 %; Eosinophils # 0.2 10^3/uL (0.0-0.8); Eosinophils % 1.9 %; Hemoglobin 9.3 g/dL (11.7-16.6); Lymphocytes # 1.1 10^3/uL (0.8-4.8); Lymphocytes % 12.4 %; Mean Corpuscular HGB Conc 33.2 g/dL (30.0-36.0); Mean Corpuscular Hemoglobin 30.7 pg (28.0-34.0); Mean Corpuscular Volume 92.4 fl (80-94); Mean Platelet Volume 9.7 fL (7.4-10.4); Monocytes % 11.1 %; Neutrophils % 73.5 %; Nucleated Red Blood Cells % 0 %; Platelet Count 271 10^3/cmm (130-400); Red Blood Count 3.03 10^6/uL (4.1-5.3); Red Cell Distribution Width 14.6 % (12.1-15.1); White Blood Count 9.1 10^3/uL (4.0-10.0)
[2022-05-18 04:46] LABS: Cholesterol 165 mg/dL (0-200); HDL Cholesterol 33 mg/dL (60-100); LDL Cholesterol Calculated 101 mg/dL (50-129); Triglycerides 155 mg/dL (0-150); VLDL Cholestrol Calculation 31 mg/dL (0-30)
[2022-05-18 04:47] LABS: Alanine Aminotransferase 8 U/L (0-41); Albumin Level 2.9 g/dL (3.5-5.2); Alkaline Phosphatase 82 U/L (40-130); Anion Gap 15.8 (5-19); Aspartate Amino Transferase 11 U/L (0-40); Blood Urea Nitrogen 38 mg/dL (6-20); Calcium 7.5 mg/dL (8.5-10.5); Carbon Dioxide 26 mmol/L (22-29); Chloride 99 mmol/L (98-107); Globulin 3.1 g/dL (1.3-4.6); Glomerular Filtration Rate 21.2 mL/min (90-130); Glucose 74 mg/dL (65-115); Osmolality Calculated 292 mOsm/kg (285-295); Potassium 3.8 mmol/L (3.5-5.1); Sodium 137 mmol/L (136-145); Total Bilirubin 0.3 mg/dL (0.15-1.2)
--- NOTE | 2022-05-18 05:07 | XRR_ITS ---
PROCEDURE INFORMATION: Exam: XR Chest Exam date and time: 05/18/2022 5:37 AM Age: 51 years old Clinical indication: Shortness of breath; Prior surgery; Surgery type: Open heart. Port. Gb; Patient HX: Worsening hypoxia requiring non rebreather. ; Additional info: New oxygen requirement TECHNIQUE: Imaging protocol: Radiologic exam of the chest. Views: 1 view. COMPARISON: CR XR chest 1V portable [id number] 05/15/2022 8:07 PM FINDINGS: Lungs: There are decreased lung volumes. Increased mild bilateral perihilar and basilar interstitial opacities are seen. This may represent interval development of pulmonary edema. Recommend follow-up until resolution. Pleural spaces: No pleural effusion. No pneumothorax. Heart/Mediastinum: The heart size is normal. The patient is status post median sternotomy with sternal wires. The mediastinal contour is normal. Left subclavian Port-A-Cath is seen without change. Bones/joints: No acute osseous abnormalities seen. Soft tissues: Multiple external densities are seen overlying the chest, limiting assessment. XR/XR chest 1V portable [id number] IMPRESSION: Decreased lung volumes. Increased mild bilateral perihilar and basilar interstitial opacities. This may represent interval development of pulmonary edema. Recommend follow-up until resolution.
[2022-05-18] MEDS: bumetanide 0.25 mg/mL SDV 10 mL 2 MG IVP ×3 (05:23→21:38)
[2022-05-18 06:04] LABS: ABG PCO2 40.9 mmHg (35-45); ABG PH Result 7.42 (7.35-7.45); Arterial Blood Gas Hematocrit 27.3 % (42-52); Base Excess ABG 1.6 mmol/L (-2.0-2.0); Blood Gas Allen Test Pos; Blood Gas Sample Site Radial, right; Blood Gas Sample Type Arterial; Carboxyhemoglobin 1.1 %THgb (0.4-20.1); HCO3 ABG 26.3 mmol/L (22-26); Ionized Calcium Level - ABG 1.1 mmol/L (1.1-1.4); Oxygen Device NRB; Oxygen Saturation ABG 99.1; Potassium Level - ABG 3.7 mmol/L (3.5-5.0); Total Hemoglobin 8.9 g/dL (14-18)
[2022-05-18 06:44] LABS: Glucose Point of Care 152 mg/dL (70-110)
--- NOTE | 2022-05-18 07:58 | ECG_ITS ---
[facility] Test Date: 2022-05-18 Pat Name: Rei Queen Department: Room: 273 Gender: Male Asset Manager: : 1970 Requested By: Rafiq Mariee Order Number: [id number] Becky MD: Tory Lopez M.D. Measurements Intervals [place] Rate: 116 P: 41 [place]: 179 QRS: 20 QRSD: 86 T: 59 QT: 319 QTc: 444 Interpretive Statements SINUS TACHYCARDIA POSSIBLE ANTERIOR MYOCARDIAL INFARCTION , OF INDETERMINATE AGE [30 ms Q WAVE IN V3/V4, OR R < 0.2 mV IN V4] Compared to ECG 05/16/2022 00:25:47 Sinus rhythm no longer present Myocardial infarct finding still present Electronically Signed On 05-18-2022 20:34:48 ANKLE PATCH MOLDER by oTry Lopez M.D. [id number]
[2022-05-18] MEDS: heparin 5,000 unit/mL INJ 1 mL IV (08:07)
[2022-05-18] MEDS: heparin drip 25,000 UNIT/500 ML PREMIX 32 UNIT IV (08:08)
[2022-05-18 08:13] LABS: Platelet Count 291 10^3/cmm (130-400)
[2022-05-18] MEDS: ipratropium-albuterol 3 mL Neb INHALATION ×2 (08:16→13:38)
[2022-05-18] MEDS: budesonide 0.5 mg/2 mL Neb INHALATION ×2 (08:16→23:05)
[2022-05-18 08:20] LABS: Partial Thromboplastin Time 30.4 SECONDS (23.9-36.7)
--- NOTE | 2022-05-18 09:00 | CT_ITS ---
WS: [id number] CT CHEST TECHNIQUE: Noncontrast CT of the chest with coronal and sagittal reformatted images. CLINICAL INFORMATION: resp faliure COMPARISON: March 26, 2021 DLP: 611.[address] scans at [facility] use at least one of these dose optimization techniques: automated e xposure control; mA and/or kV adjustment per patient size (includes targeted exams where dose is matc hed to clinical indication); or iterative reconstruction. FINDINGS: Chronic emphysematous changes. Calcified granuloma LEFT upper lobe. Consolidation posterior medial lo wer lobes bilaterally progressed compared to March 26, 2021. Associated air bronchograms. Findings compatible with pneumonia. Upper lobes are well aerated. No significant pleural fluid. Normal caliber thoracic aorta. Cardiomegaly. Coronary calcification. Sternotomy. CABG. No mediastinal or hilar lymphadenopathy. No axillary lymphadenopathy. RIGHT adrenal adenoma measuring 1.7 CM. LEFT adrenal adenoma measuring 2.5 CM.Cholecystectomy clips. Fatty atrophy of the pancreas. Splenic artery calcification. Normal GE junction. Fluid distended sto mach with air-fluid levels. Moderate thoracic kyphosis. Chronic anterior wedging mid thoracic spine. CT/CT chest wo con [id number] IMPRESSION: 1. Compressive atelectasis with consolidation in the bilateral lower lobes med ially slightly worse in the LEFT. Associated air bronchograms. Findings compati ble with pneumonia. Infiltrates have progressed since March 26, 2021 2. Upper lobes are well aerated. 3. Cardiomegaly. 4. Unchanged bilateral adrenal adenomas. 5. No other acute findings.
[2022-05-18] MEDS: aspirin 81 mg EC Tablet PO (10:33)
[2022-05-18] MEDS: isosorbide mononitrate ER 30 mg Tablet PO ×2 (10:34→17:03)
[2022-05-18] MEDS: citalopram 20 mg Tablet 40 MG PO (10:34)
[2022-05-18] MEDS: acetaminophen 325 mg Tablet 650 MG PO (10:34)
[2022-05-18] MEDS: ranolazine (12HR) 500 mg Tablet PO ×2 (10:34→17:03)
[2022-05-18] MEDS: amlodipine 5 mg Tablet PO (10:34)
[2022-05-18] MEDS: metoprolol tartrate 50 mg Tablet 25 MG PO ×2 (10:34→17:03)
[2022-05-18] MEDS: doxycycline 100 mg Tablet PO (10:34)
[2022-05-18] MEDS: levothyroxine 88 mcg Tablet PO (10:34)
[2022-05-18] MEDS: atorvastatin 40 mg Tablet PO (10:35)
[2022-05-18] MEDS: BuSPIRONE 10 mg Tablet 5 MG PO (10:35)
[2022-05-18] MEDS: buPROPion XL (24 HR) 300 mg Tablet PO (10:35)
[2022-05-18 10:48] LABS: Glucose Point of Care 146 mg/dL (70-110)
[2022-05-18] MEDS: vancomycin 1,000 MG in sodium chloride 0.9% 250 ML 250 MG IV (11:00)
[2022-05-18 12:12] LABS: Adenovirus Not Detected (NOT DETECT); Chlamydia Pneumoniae Not Detected (NOT DETECT); Coronavirus 229E,HKU1,NL63,OC4 Not Detected (NOT DETECT); Human Metapneumovirus Not Detected (NOT DETECT); Human Rhinovirus/Enterovirus Not Detected (NOT DETECT); Influenza A Not Detected (NOT DETECT); Influenza A H1 Not Detected (NOT DETECT); Influenza A H1-2009 Not Detected (NOT DETECT); Influenza A H3 Not Detected (NOT DETECT); Influenza B Not Detected (NOT DETECT); Mycoplasma Pneumoniae Not Detected (NOT DETECT); Parainfluenza Virus Type 1 Not Detected (NOT DETECT); Parainfluenza Virus Type 2 Not Detected (NOT DETECT); Parainfluenza Virus Type 3 Not Detected (NOT DETECT); Parainfluenza Virus Type 4 Not Detected (NOT DETECT); Respiratory Syncytial Virus A Not Detected (NOT DETECT); Respiratory Syncytial Virus B Not Detected (NOT DETECT); SARS-COV-2 Not Detected (NOT DETECT)
[2022-05-18] MEDS: piperacillin-tazobactam 3.375 GM in sodium chloride 0.9% (plus) 50 ML IV ×2 (12:29→20:01)
--- NOTE | 2022-05-18 13:59 | P.PN_ITS ---
Subjective Subjective: Overnight patient decompensated and needed BiPAP ventilation up to 100% oxygenation to maintain saturation over 94%. Today morning on examination patient was again on BiPAP seen with family at bedside. Patient was given IV Bumex, Little catheter was placed and ABG was done later FiO2 was turned down to 80%, CT chest was done and during the day oxygen supplementation could be turned down to 3 to 4 L through nasal cannula. Patient denied any chest pain, nausea or vomiting. Vitals/I&O/Wt Last Vital Signs Temp 98.5 F 05/18/22 11:36 Pulse 82 05/18/22 13:55 Resp 16 05/18/22 13:43 BP 107/72 05/18/22 11:36 Pulse Ox 91 05/18/22 13:43 O2 Del Method 05/18/22 13:43 O2 Flow Rate 4 05/18/22 13:43 FiO2 80 05/18/22 08:00 05/17/22 05/18/22 05/18/22 22:59 06:59 14:59 Intake Total 120 / 1080 370 / 370 Balance 120 / 1080 370 / 370 Weight last 48 hrs Weight 112.604 kg Physical Exam Const: COMMON NORMALS: no acute distress and patient oriented x3 HENMT: COMMON NORMALS: normocephalic HEAD & SCALP: normocephalic Eye: COMMON NORMALS: Equal, round and reactive pupils present and EOMs intact bilaterally PUPIL: Yes Equal, round and reactive pupils present Neck/C-Spine: COMMON NORMALS: no JVD Lymph: LYMPHATIC: no lymphadenopathy noted Resp: COMMON NORMALS: normal respiratory effort, No retractions, No use of accessory muscles and clear to auscultation bilaterally AUSCULTATION: clear to auscultation bilaterally Cardio: COMMON NORMALS: no JVD, regular rate, regular rhythm, S1 normal heart sound present and S2 normal heart sound present RATE: regular rate RHYTHM: regular rhythm HEART SOUNDS: S1 normal heart sound present and S2 normal heart sound present GI: COMMON NORMALS: Normal to inspection, nondistended, normoactive bowel sounds present, Soft to palpation, non-tender, no masses and no bruits PALPATION: Yes Soft to palpation Extremity: COMMON NORMALS: capillary refill normal, no clubbing, cyanosis or edema, no calf tenderness and no pedal edema Neuro: COMMON NORMALS: patient oriented x3, CN's II-XII intact bilaterally, moves all extremities and no focal motor deficits Psych: COMMON NORMALS: mental status grossly normal Skin: NARRATIVE SKIN EXAM: Bilateral lower extremity, fasciotomy scars Left lower extremity, area of cellulitis erythema, swelling, warmth measuring 3 x 30 cm round, area of abscess drainage, incision measuring 1 cm long, vertical, dressing on top Data 05/18/22 08:00 05/18/22 03:26 Micro: Microbiology 05/15/22 22:10 Gram Stain - Final Leg - Abscess Wound Culture - Preliminary Coag positive Staphylococcus A&P Assessment and plan (1) Respiratory failure with hypoxia: Most likely secondary to acute decompensation of congestive heart failure. Patient has history of 30 to 35% with diastolic dysfunction and regional wall motion abnormality. Continue with Bumex 2 mg IV every 12 hourly. Strict input output charting, daily weights. Little catheter. PE unlikely as patient is already completely anticoagulated with Eliquis. Cannot do CTA given CKD. Switch to heparin drip for now. Patient already on antibiotics with Augmentin, doxycycline, vancomycin. Check CT chest without contrast. Flu and COVID-19 swab. For now continue with vancomycin and switch to Zosyn. Hold off on Augmentin and doxycycline. For supplementation keeping saturation over 90%. (2) Chest pain: Seen multiple times in the past for similar complaints. Multiple cardiac angiogram as per the chart with patent stents. Lexiscan stress test negative for any acute ischemia and consistent with m yocardial scarring. Continue with aspirin, statin, Imdur, beta-zaira. (3) Cellulitis and abscess of left leg: Post I&D. Continue wound care. MRSA swab, follow-up cultures. For now continue with Zosyn and vancomycin. If MRSA is negative will discontinue vancomycin. (4) 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 mellitus: Patient complaining of bilateral lower foot pain most likely related to neuropathy. Change gabapentin to 200 mg 3 times a day, Requip to 0.5 mg nightly. Change oxycodone 5 mg every 4 hourly to every 6 hourly as needed Continue with home dose of bupropion and BuSpar. (5) Chronic systolic heart failure: (6) Hypertension: Goal blood pressure less than 140/90 mmHg. (7) CRF (chronic renal failure): Creatinine at baseline. Continue to monitor. Medical reconciliation done for nephrotoxic drugs. (8) Chronic anticoagulation: Continue with chronic Eliquis for history of DVT and PE in the past. Plan Full code. Carb consistent diet. Protonix for PUD prophylaxis Eliquis is suffice DVT prophylaxis Discharge planning: Patient requesting discharge to SNF for further rehabilitation as his is not able to take care of him at his home anymore. Case management alerted. Attestations Medical Necessity Statement*: Requires further hospitalization for management of hypoxic respiratory failure secondary to congestive heart failure, chest pain under evaluation, physical deconditioning while safe discharge planning is sought. Time Spent in Patient Care: Greater than 35 minutes Coding Level of Care Code Acute Marketing Strategy Manager for [facility] Fwd Diagnoses Respiratory failure with hypoxia J96.91 Chest pain R07.9 Cellulitis and abscess of left leg L03.116; L02.416 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 mellitus E11.42 Chronic systolic heart failure I50.22 Hypertension I10 CRF (chronic renal failure) N18.9 Chronic anticoagulation Z79.01
[2022-05-18 15:29] LABS: Glucose Point of Care 131 mg/dL (70-110)
[2022-05-18 15:54] LABS: Partial Thromboplastin Time 167.8 SECONDS (23.9-36.7)
[2022-05-18 16:03] LABS: ABG PCO2 41.5 mmHg (35-45); ABG PH Result 7.39 (7.35-7.45); Blood Gas Allen Test Pos; Blood Gas Sample Site Radial, left; Blood Gas Sample Type Arterial; HGB O2 Sat 96.3 % (95-100); Ionized Calcium Level - ABG 1.1 mmol/L (1.1-1.4); Methemoglobin 0.8 % (0.4-1.5); Potassium Level - ABG 4.1 mmol/L (3.5-5.0); Total Hemoglobin 9.5 g/dL (14-18)
[2022-05-18 16:05] LABS: Alveolar-Arterial Oxygen Gradi 36.1 mmHg (5-10); Oxygen Device BIPAP
--- NOTE | 2022-05-18 16:05 | PC.NURSE ---
Dr. Mariee notified of PTT being 167.8. Orders to hold Heparin for 3 hours and then draw another PTT and restart the Heparin from there.
[2022-05-18 16:41] LABS: Glucose Point of Care 138 mg/dL (70-110)
--- NOTE | 2022-05-18 18:06 | CTR_ITS ---
PROCEDURE INFORMATION: Exam: CT Head Without Contrast Exam date and time: 05/18/2022 6:20 PM Age: 51 years old Clinical indication: Altered mental status/memory loss; Additional info: Change in loc TECHNIQUE: Imaging protocol: Computed tomography of the head without contrast. Radiation optimization: All CT scans at this facility use at least one of these dose optimization techniques: automated exposure control; mA and/or kV adjustment per patient size (includes targeted exams where dose is matched to clinical indication); or iterative reconstruction. COMPARISON: CT head wo con* [id number] 04/12/2021 3:49 PM RADIATION DOSE METRICS: Total DLP (mGy-cm): 1373.45 FINDINGS: Brain: Mild diffuse cortical volume loss. Mild hypodensities in supratentorial periventricular and subcortical white matter, consistent with microangiopathy. No intracranial hemorrhage. Cerebral ventricles: No ventriculomegaly. Paranasal sinuses: Visualized sinuses are unremarkable. No fluid levels. Mastoid air cells: Visualized mastoid air cells are well aerated. Bones/joints: Unremarkable. No acute fracture. Soft tissues: Unremarkable. Vasculature: No hyperdense artery. CT/CT head wo con* [id number] IMPRESSION: No acute intracranial abnormality.
[2022-05-18 20:13] LABS: Partial Thromboplastin Time 53.2 SECONDS (23.9-36.7)
[2022-05-18 21:56] LABS: Glucose Point of Care 121 mg/dL (70-110)
[2022-05-18] MEDS: ipratropium 0.5 mg/2.5 mL Neb INHALATION (23:05)
[2022-05-18] MEDS: albuterol 2.5 mg/3 mL Neb INHALATION (23:05)
[2022-05-19] VITALS (17 sets, daily range): BP systolic 103–145; BP diastolic 42–80; PULSE 68–105; RESP 6–26; TEMP 36.9–37.3; O2SAT 88–96
[2022-05-19] MEDS: pantoprazole 40 mg SDV IVP (01:14)
[2022-05-19] MEDS: albuterol 2.5 mg/3 mL Neb INHALATION ×3 (03:52→13:39)
[2022-05-19] MEDS: ipratropium 0.5 mg/2.5 mL Neb INHALATION ×3 (03:53→13:39)
[2022-05-19] MEDS: piperacillin-tazobactam 3.375 GM in sodium chloride 0.9% (plus) 50 ML IV ×3 (04:28→19:53)
[2022-05-19] MEDS: atorvastatin 40 mg Tablet PO (06:06)
[2022-05-19] MEDS: isosorbide mononitrate ER 30 mg Tablet PO ×2 (06:06→17:13)
[2022-05-19] MEDS: metoprolol tartrate 50 mg Tablet 25 MG PO ×2 (06:06→17:13)
[2022-05-19] MEDS: levothyroxine 88 mcg Tablet PO (06:06)
[2022-05-19] MEDS: buPROPion XL (24 HR) 300 mg Tablet PO (06:06)
[2022-05-19] MEDS: aspirin 81 mg EC Tablet PO (06:06)
[2022-05-19 06:41] LABS: Glucose Point of Care 99 mg/dL (70-110)
[2022-05-19] MEDS: heparin drip 25,000 UNIT/500 ML PREMIX 34 UNIT IV (07:04)
[2022-05-19] MEDS: amlodipine 5 mg Tablet PO (07:58)
[2022-05-19] MEDS: gabapentin 100 mg Capsule 200 MG PO ×2 (07:58→14:05)
[2022-05-19] MEDS: ranolazine (12HR) 500 mg Tablet PO ×2 (07:58→17:13)
[2022-05-19] MEDS: BuSPIRONE 10 mg Tablet 5 MG PO ×3 (07:59→20:41)
[2022-05-19] MEDS: bumetanide 0.25 mg/mL SDV 10 mL 2 MG IVP (07:59)
[2022-05-19] MEDS: vancomycin 1,000 MG in sodium chloride 0.9% 250 ML 250 MG IV (08:01)
[2022-05-19] MEDS: acetaminophen 325 mg Tablet 650 MG PO (08:20)
[2022-05-19 09:05] LABS: Partial Thromboplastin Time 125.4 SECONDS (23.9-36.7)
[2022-05-19] MEDS: budesonide 0.5 mg/2 mL Neb INHALATION ×2 (09:51→21:14)
[2022-05-19 11:17] LABS: Glucose Point of Care 143 mg/dL (70-110)
[2022-05-19] MEDS: insulin lispro 100 unit/1 mL SUBCUT (11:40)
--- NOTE | 2022-05-19 14:07 | PC.NURSE ---
THIS NURSE JASON BLOOD FROM PATIENT'S PAC AND SENT TO LAB. LAB NOTIFIED.
[2022-05-19 14:25] LABS: Basophils # 0.1 10^3/uL (0.0-0.1); Basophils % 0.5 %; Eosinophils # 0.2 10^3/uL (0.0-0.8); Eosinophils % 1.1 %; Hematocrit 25.4 % (42.0-52.0); Hemoglobin 8.4 g/dL (11.7-16.6); Mean Corpuscular HGB Conc 33.1 g/dL (30.0-36.0); Mean Corpuscular Hemoglobin 30.7 pg (28.0-34.0); Mean Corpuscular Volume 92.7 fl (80-94); Mean Platelet Volume 10.2 fL (7.4-10.4); Monocytes # 0.7 10^3/uL (0.2-0.9); Monocytes % 4.6 %; Neutrophils % 86.4 %; Nucleated Red Blood Cells % 0 %; Platelet Count 301 10^3/cmm (130-400); Red Blood Count 2.74 10^6/uL (4.1-5.3); Red Cell Distribution Width 14.6 % (12.1-15.1); White Blood Count 14.9 10^3/uL (4.0-10.0)
[2022-05-19 14:51] LABS: Alanine Aminotransferase 9 U/L (0-41); Albumin Level 2.8 g/dL (3.5-5.2); Alkaline Phosphatase 116 U/L (40-130); Anion Gap 17.8 (5-19); Aspartate Amino Transferase 16 U/L (0-40); Blood Urea Nitrogen 55 mg/dL (6-20); Calcium 7.5 mg/dL (8.5-10.5); Carbon Dioxide 23 mmol/L (22-29); Chloride 95 mmol/L (98-107); Globulin 3.2 g/dL (1.3-4.6); Glomerular Filtration Rate 15.8 mL/min (90-130); Glucose 78 mg/dL (65-115); Osmolality Calculated 288 mOsm/kg (285-295); Potassium 3.8 mmol/L (3.5-5.1); Sodium 132 mmol/L (136-145); Total Bilirubin 0.4 mg/dL (0.15-1.2)
--- NOTE | 2022-05-19 15:18 | PM.PN ---
Subjective Subjective: Overnight patient has remained on BiPAP. Today morning examination seen with family at bedside. Requiring 3 to 4 L oxygen supplementation to maintain saturation over 90%. T-max in the last 24 hours 102.8. Patient otherwise states he is feeling better than yesterday but still not baseline. Asking for Little to be removed Vitals/I&O/Wt Last Vital Signs Temp 99.1 F 05/19/22 11:10 Pulse 78 05/19/22 14:00 Resp 18 05/19/22 13:44 BP 103/64 05/19/22 11:10 Pulse Ox 90 05/19/22 13:44 O2 Del Method 05/19/22 13:39 O2 Flow Rate 6 05/19/22 13:44 FiO2 60 05/18/22 20:00 05/19/22 05/19/22 05/19/22 06:59 14:59 22:59 Intake Total 50 / 732.4 737.267 / 737.267 Output Total 500 / 1600 Balance -450 / -867.6 737.267 / 737.267 Physical Exam Const: COMMON NORMALS: no acute distress and patient oriented x3 HENMT: COMMON NORMALS: normocephalic HEAD & SCALP: normocephalic Eye: COMMON NORMALS: Equal, round and reactive pupils present and EOMs intact bilaterally PUPIL: Yes Equal, round and reactive pupils present Neck/C-Spine: COMMON NORMALS: no JVD Lymph: LYMPHATIC: no lymphadenopathy noted Resp: COMMON NORMALS: normal respiratory effort, No retractions, No use of accessory muscles and clear to auscultation bilaterally AUSCULTATION: clear to auscultation bilaterally Cardio: COMMON NORMALS: no JVD, regular rate, regular rhythm, S1 normal heart sound present and S2 normal heart sound present RATE: regular rate RHYTHM: regular rhythm HEART SOUNDS: S1 normal heart sound present and S2 normal heart sound present GI: COMMON NORMALS: Normal to inspection, nondistended, normoactive bowel sounds present, Soft to palpation, non-tender, no masses and no bruits PALPATION: Yes Soft to palpation Extremity: COMMON NORMALS: capillary refill normal, no clubbing, cyanosis or edema, no calf tenderness and no pedal edema Neuro: COMMON NORMALS: patient oriented x3, CN's II-XII intact bilaterally, moves all extremities and no focal motor deficits Psych: COMMON NORMALS: mental status grossly normal Skin: NARRATIVE SKIN EXAM: Bilateral lower extremity, fasciotomy scars Left lower extremity, area of cellulitis erythema, swelling, warmth measuring 3 x 30 cm round, area of abscess drainage, incision measuring 1 cm long, vertical, dressing on top Data 05/19/22 12:47 05/19/22 12:47 Micro: Microbiology 05/19/22 06:10 MRSA Culture - Final Nose A&P Assessment and plan (1) Respiratory failure with hypoxia: Most likely secondary to acute decompensation of congestive heart failure and aspiration. Most likely patient aspirated while having his meal when he was little drowsy during his meal on 05/17. Patient has history of 30 to 35% with diastolic dysfunction and regional wall motion abnormality. Hold off on any further Bumex for now. Strict input output charting, daily weights. Maintain Little. Appreciate CT chest results. PE unlikely. Switch anticoagulation back to Eliquis 2.5 mg twice daily. Continue oral vancomycin and Zosyn for now. Sputum culture. MRSA positive. Incentive spirometry, flutter valve. Modified barium swallow. For supplementation keeping saturation over 90%. Continue with home dose of BuSpar 5 mg 3 times daily, bupropion. After confirming the patient he does not take Celexa anymore. So we will stop. Continue with gabapentin 100 mg 3 times daily, Requip 0.5 (2) Chest pain: Seen multiple times in the past for similar complaints. Multiple cardiac angiogram as per the chart with patent stents. Lexiscan stress test negative for any acute ischemia and consistent with myocardial scarring. Continue with aspirin, statin, Imdur, beta-zaira. (3) Cellulitis and abscess of left leg: Post I&D. Continue wound care. MRSA swab, follow-up cultures. For now continue with Zosyn and vancomycin. If MRSA is negative will discontinue vancomycin. (4) 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 mellitus: Patient complaining of bilateral lower foot pain most likely related to neuropathy. Change gabapentin to 100 mg 3 times a day, Requip to 0.5 mg nightly. Stop oxycodone. Continue with home dose of bupropion and BuSpar. Celexa stopped as above. (5) Chronic systolic heart failure: (6) Hypertension: Goal blood pressure less than 140/90 mmHg. (7) CRF (chronic renal failure): Creatinine at baseline. Continue to monitor. Medical reconciliation done for nephrotoxic drugs. (8) Chronic anticoagulation: Continue with chronic Eliquis for history of DVT and PE in the past. Plan Full code. Carb consistent diet. Protonix for PUD prophylaxis Eliquis is suffice DVT prophylaxis Discharge planning: Patient requesting discharge to SNF for further rehabilitation as his is not able to take care of him at his home anymore. Case management alerted. Attestations Medical Necessity Statement*: Requires further hospitalization for management of hypoxic respiratory failure secondary to congestive heart failure and aspiration pneumonitis Time Spent in Patient Care: Greater than 35 minutes Coding Level of Care Code Acute Equipment Operator Wage Hand for [facility] Fwd Diagnoses Respiratory failure with hypoxia J96.91 Chest pain R07.9 Cellulitis and abscess of left leg L03.116; L02.416 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 mellitus E11.42 Chronic systolic heart failure I50.22 Hypertension I10 CRF (chronic renal failure) N18.9 Chronic anticoagulation Z79.01
[2022-05-19 16:02] LABS: Vancomycin Random 31.4 ug/mL (20.0-40.0)
[2022-05-19 16:55] LABS: Glucose Point of Care 168 mg/dL (70-110)
--- NOTE | 2022-05-19 18:34 | PC.NURSE ---
PATIENT HAS BEEN AWAKE THE MAJORITY OF THE DAY. O2 SATURATIONS REMAINED IN THE LOW 90S. 400ML OF CLOUDY, SEDIMENT URINE. PATIENT SAT ON THE EDGE OF THE BED FOR A BIT TODAY. CURRENTLY RESTING IN BED. AT BEDSIDE.
[2022-05-19] MEDS: ropinirole 0.25 mg Tablet 0.5 MG PO (20:41)
[2022-05-19] MEDS: trazodone 100 mg Tablet 400 MG PO (20:43)
[2022-05-19] MEDS: apixaban 5 mg Tablet 2.5 MG PO (20:44)
[2022-05-19] MEDS: gabapentin 100 mg Capsule PO (20:44)
[2022-05-19 21:15] LABS: Glucose Point of Care 180 mg/dL (70-110)
[2022-05-19] MEDS: insulin glargine 100 units/1 mL 30 UNIT SUBCUT (21:25)
[2022-05-20] VITALS (15 sets, daily range): BP systolic 109–120; BP diastolic 50–82; PULSE 65–88; RESP 6–28; TEMP 36.8–38.5; O2SAT 90–97
[2022-05-20] MEDS: pantoprazole 40 mg SDV IVP (00:59)
[2022-05-20] MEDS: ipratropium 0.5 mg/2.5 mL Neb INHALATION ×4 (02:12→21:47)
[2022-05-20] MEDS: albuterol 2.5 mg/3 mL Neb INHALATION ×3 (02:12→13:03)
[2022-05-20] MEDS: piperacillin-tazobactam 3.375 GM in sodium chloride 0.9% (plus) 50 ML IV ×3 (04:08→19:10)
[2022-05-20 05:30] LABS: Basophils # 0.1 10^3/uL (0.0-0.1); Basophils % 0.4 %; Eosinophils # 0.1 10^3/uL (0.0-0.8); Eosinophils % 0.4 %; Hematocrit 22.9 % (42.0-52.0); Hemoglobin 7.5 g/dL (11.7-16.6); Lymphocytes # 0.8 10^3/uL (0.8-4.8); Lymphocytes % 5.5 %; Mean Corpuscular HGB Conc 32.8 g/dL (30.0-36.0); Mean Corpuscular Hemoglobin 30.1 pg (28.0-34.0); Mean Platelet Volume 9.9 fL (7.4-10.4); Monocytes # 0.8 10^3/uL (0.2-0.9); Monocytes % 5.7 %; Neutrophils # 12.46 10^3/uL (1.8-7.7); Neutrophils % 87.3 %; Nucleated Red Blood Cells % 0 %; Platelet Count 308 10^3/cmm (130-400); Red Blood Count 2.49 10^6/uL (4.1-5.3); Red Cell Distribution Width 14.8 % (12.1-15.1); White Blood Count 14.3 10^3/uL (4.0-10.0)
[2022-05-20 05:51] LABS: Alanine Aminotransferase 9 U/L (0-41); Albumin Level 2.7 g/dL (3.5-5.2); Alkaline Phosphatase 111 U/L (40-130); Aspartate Amino Transferase 14 U/L (0-40); Blood Urea Nitrogen 61 mg/dL (6-20); Calcium 7.3 mg/dL (8.5-10.5); Carbon Dioxide 22 mmol/L (22-29); Globulin 3.1 g/dL (1.3-4.6); Glomerular Filtration Rate 13.1 mL/min (90-130); Glucose 106 mg/dL (65-115); Total Bilirubin 0.4 mg/dL (0.15-1.2); Total Protein 5.8 g/dL (6.6-8.7)
[2022-05-20] MEDS: isosorbide mononitrate ER 30 mg Tablet PO ×2 (06:14→17:34)
[2022-05-20] MEDS: metoprolol tartrate 50 mg Tablet 25 MG PO ×2 (06:14→17:34)
[2022-05-20] MEDS: levothyroxine 88 mcg Tablet PO (06:14)
[2022-05-20] MEDS: buPROPion XL (24 HR) 300 mg Tablet PO (06:14)
[2022-05-20 06:15] LABS: Glucose Point of Care 112 mg/dL (70-110)
[2022-05-20] MEDS: atorvastatin 40 mg Tablet PO (06:15)
[2022-05-20] MEDS: aspirin 81 mg EC Tablet PO (06:15)
[2022-05-20 06:37] LABS: Chloride 96 mmol/L (98-107); Osmolality Calculated 294 mOsm/kg (285-295); Sodium 133 mmol/L (136-145)
[2022-05-20 08:34] LABS: Vancomycin Trough 20.6 ug/mL (10-15)
[2022-05-20] MEDS: budesonide 0.5 mg/2 mL Neb INHALATION ×2 (09:07→21:47)
[2022-05-20] MEDS: gabapentin 100 mg Capsule PO ×3 (09:23→21:19)
[2022-05-20] MEDS: BuSPIRONE 10 mg Tablet 5 MG PO ×3 (09:23→21:19)
[2022-05-20] MEDS: ranolazine (12HR) 500 mg Tablet PO ×2 (09:23→17:35)
[2022-05-20] MEDS: amlodipine 5 mg Tablet PO (09:24)
[2022-05-20] MEDS: apixaban 5 mg Tablet 2.5 MG PO ×2 (09:25→21:19)
[2022-05-20 11:54] LABS: Glucose Point of Care 81 mg/dL (70-110)
--- NOTE | 2022-05-20 14:36 | XRR_ITS ---
PROCEDURE INFORMATION: Exam: XR Chest Exam date and time: 05/20/2022 3:02 PM Age: 51 years old Clinical indication: Shortness of breath; Prior surgery; Additional info: SOB TECHNIQUE: Imaging protocol: Radiologic exam of the chest. Views: 1 view. COMPARISON: CT chest con [id number] 05/18/2022 10:02 AM FINDINGS: Tubes, catheters and devices: Left chest port terminates in the distal SVC. Lungs: Redemonstrated bibasilar consolidations. Pleural spaces: No pleural effusion. No pneumothorax. Heart/Mediastinum: Cardiomegaly. Bones/joints: Sternotomy wires noted. Visualized osseous structures are intact. XR/XR chest 1V portable [id number] IMPRESSION: Redemonstrated bibasilar consolidations. No significant interval change.
--- NOTE | 2022-05-20 15:18 | PM.PN ---
Subjective Subjective: Today morning on examination seen with at bedside. Currently on BiPAP at 60% FiO2. Awake and alert. Desaturating on taking off BiPAP. Hemodynamically stable and afebrile. Vitals/I&O/Wt Last Vital Signs Temp 100.2 F H 05/20/22 12:00 Pulse 88 05/20/22 13:07 Resp 28 H 05/20/22 13:04 BP 119/54 05/20/22 12:00 Pulse Ox 91 05/20/22 13:07 O2 Del Method 05/20/22 13:04 O2 Flow Rate 6 05/20/22 07:41 FiO2 60 05/20/22 13:04 05/20/22 05/20/22 05/20/22 06:59 14:59 22:59 Intake Total 50 / 1229.567 290 / 290 Output Total 400 / 800 275 / 275 Balance -350 / 429.567 15 Weight last 48 hrs Weight 116.233 kg Physical Exam Const: COMMON NORMALS: no acute distress and patient oriented x3 HENMT: COMMON NORMALS: normocephalic HEAD & SCALP: normocephalic Eye: COMMON NORMALS: Equal, round and reactive pupils present and EOMs intact bilaterally PUPIL: Yes Equal, round and reactive pupils present Neck/C-Spine: COMMON NORMALS: no JVD Lymph: LYMPHATIC: no lymphadenopathy noted Resp: COMMON NORMALS: normal respiratory effort, No retractions, No use of accessory muscles and clear to auscultation bilaterally AUSCULTATION: clear to auscultation bilaterally Cardio: COMMON NORMALS: no JVD, regular rate, regular rhythm, S1 normal heart sound present and S2 normal heart sound present RATE: regular rate RHYTHM: regular rhythm HEART SOUNDS: S1 normal heart sound present and S2 normal heart sound present GI: COMMON NORMALS: Normal to inspection, nondistended, normoactive bowel sounds present, Soft to palpation, non-tender, no masses and no bruits PALPATION: Yes Soft to palpation Extremity: COMMON NORMALS: capillary refill normal, no clubbing, cyanosis or edema, no calf tenderness and no pedal edema Neuro: COMMON NORMALS: patient oriented x3, CN's II-XII intact bilaterally, moves all extremities and no focal motor deficits Psych: COMMON NORMALS: mental status grossly normal Skin: NARRATIVE SKIN EXAM: Bilateral lower extremity, fasciotomy scars Left lower extremity, area of cellulitis erythema, swelling, warmth measuring 3 x 30 cm round, area of abscess drainage, incision measuring 1 cm long, vertical, dressing on top Data 05/20/22 04:59 05/20/22 04:59 Micro: Microbiology 05/15/22 22:10 Gram Stain - Final Leg - Abscess Wound Culture - Final Methicillin Resis Staph Aureus 05/19/22 06:10 MRSA Culture - Final Nose A&P Assessment and plan (1) Respiratory failure with hypoxia: Most likely secondary to acute decompensation of congestive heart failure and aspiration. Most likely patient aspirated while having his meal when he was little drowsy during his meal on 05/17. Patient has history of 30 to 35% with diastolic dysfunction and regional wall motion abnormality. Hold off on any further Bumex for now. Strict input output charting, daily weights. Maintain Little. Appreciate CT chest results. PE unlikely. Switch anticoagulation back to Eliquis 2.5 mg twice daily. Continue oral vancomycin and Zosyn for now. Sputum culture pending. MRSA positive. Incentive spirometry, flutter valve. Modified barium swallow. For supplementation keeping saturation over 90%. Continue with home dose of BuSpar 5 mg 3 times daily, bupropion. After confirming the patient he does not take Celexa anymore. So we will stop. Continue with gabapentin 100 mg 3 times daily, Requip 0.5 (2) Chest pain: Seen multiple times in the past for similar complaints. Multiple cardiac angiogram as per the chart with patent stents. Lexiscan stress test negative for any acute ischemia and consistent with myocardial scarring. Continue with aspirin, statin, Imdur, beta-zaira. (3) Cellulitis and abscess of left leg: Post I&D. Continue wound care. MRSA swab, follow-up cultures. For now continue with Zosyn and vancomycin. If MRSA is negative will discontinue vancomycin. (4) 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 mellitus: Patient complaining of bilateral lower foot pain most likely related to neuropathy. Change gabapentin to 100 mg 3 times a day, Requip to 0.5 mg nightly. Stop oxycodone. Continue with home dose of bupropion and BuSpar. Celexa stopped as above. (5) Chronic systolic heart failure: (6) Hypertension: Goal blood pressure less than 140/90 mmHg. (7) CRF (chronic renal failure): Creatinine at baseline. Continue to monitor. Medical reconciliation done for nephrotoxic drugs. (8) Chronic anticoagulation: Continue with chronic Eliquis for history of DVT and PE in the past. Plan Full code. Carb consistent diet. Protonix for PUD prophylaxis Eliquis is suffice DVT prophylaxis Plan for the day: For acute hypoxic respiratory failure repeat chest x-ray. Bumex 2 mg IV one-time, metolazone 5 mg one-time. Strict input output charting. Sputum culture. Continue with antibiotics. Xopenex and ipratropium every 6 hourly. Continue with Pulmicort. Discharge planning: Patient requesting discharge to SNF for further rehabilitation as his is not able to take care of him at his home anymore. Case management alerted. Attestations Medical Necessity Statement*: Requires further hospitalization for management of hypoxic respiratory failure in setting of congestive heart failure, pneumonia paise discharge planning is sought. Time Spent in Patient Care: Greater than 35 minutes Coding Level of Care Code Acute Decator Operator [facility] Diagnoses Respiratory failure with hypoxia J96.91 Chest pain R07.9 Cellulitis and abscess of left leg L03.116; L02.416 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 mellitus E11.42 Chronic systolic heart failure I50.22 Hypertension I10 CRF (chronic renal failure) N18.9 Chronic anticoagulation Z79.01
[2022-05-20] MEDS: metOLazone 5 MG Tablet PO (15:31)
[2022-05-20] MEDS: bumetanide 0.25 mg/mL SDV 10 mL 2 MG IVP (15:31)
[2022-05-20 17:19] LABS: Glucose Point of Care 58 mg/dL (70-110)
[2022-05-20 17:28] LABS: Glucose Point of Care 63 mg/dL (70-110)
[2022-05-20] MEDS: acetaminophen 325 mg Tablet 650 MG PO (17:34)
[2022-05-20 18:07] LABS: Glucose Point of Care 75 mg/dL (70-110)
[2022-05-20] MEDS: vancomycin 1,250 MG/250 ML PIGGYBACK 200 MG IV (19:10)
[2022-05-20 19:19] LABS: Glucose Point of Care 101 mg/dL (70-110)
[2022-05-20] MEDS: ropinirole 0.25 mg Tablet 0.5 MG PO (21:18)
[2022-05-20 21:23] LABS: Glucose Point of Care 114 mg/dL (70-110)
[2022-05-20 21:23] LABS: Glucose Point of Care 117 mg/dL (70-110)
[2022-05-20] MEDS: levalbuterol 0.63 mg/3 mL Neb INHALATION (21:47)
[2022-05-21] VITALS (16 sets, daily range): BP systolic 97–157; BP diastolic 50–75; PULSE 58–83; RESP 15–33; TEMP 36.3–36.9; O2SAT 85–95
[2022-05-21] MEDS: pantoprazole 40 mg SDV IVP (00:49)
[2022-05-21] MEDS: levalbuterol 0.63 mg/3 mL Neb INHALATION ×4 (02:05→20:53)
[2022-05-21] MEDS: ipratropium 0.5 mg/2.5 mL Neb INHALATION ×4 (02:05→20:53)
[2022-05-21] MEDS: piperacillin-tazobactam 3.375 GM in sodium chloride 0.9% (plus) 50 ML IV ×2 (03:04→11:35)
[2022-05-21 04:13] LABS: Basophils # 0.1 10^3/uL (0.0-0.1); Basophils % 0.6 %; Eosinophils # 0.2 10^3/uL (0.0-0.8); Eosinophils % 1.4 %; Hematocrit 24.1 % (42.0-52.0); Hemoglobin 7.9 g/dL (11.7-16.6); Lymphocytes # 0.9 10^3/uL (0.8-4.8); Lymphocytes % 7.2 %; Mean Corpuscular HGB Conc 32.8 g/dL (30.0-36.0); Mean Corpuscular Hemoglobin 29.8 pg (28.0-34.0); Mean Corpuscular Volume 90.9 fl (80-94); Monocytes % 7.6 %; Neutrophils # 10.34 10^3/uL (1.8-7.7); Neutrophils % 82.2 %; Nucleated Red Blood Cells % 0 %; Platelet Count 305 10^3/cmm (130-400); Red Blood Count 2.65 10^6/uL (4.1-5.3); White Blood Count 12.6 10^3/uL (4.0-10.0)
[2022-05-21 04:39] LABS: Alanine Aminotransferase 14 U/L (0-41); Albumin Level 2.7 g/dL (3.5-5.2); Alkaline Phosphatase 121 U/L (40-130); Aspartate Amino Transferase 39 U/L (0-40); Blood Urea Nitrogen 70 mg/dL (6-20); Calcium 7.5 mg/dL (8.5-10.5); Carbon Dioxide 22 mmol/L (22-29); Chloride 94 mmol/L (98-107); Globulin 3.2 g/dL (1.3-4.6); Glomerular Filtration Rate 11.2 mL/min (90-130); Glucose 87 mg/dL (65-115); Osmolality Calculated 294 mOsm/kg (285-295); Sodium 132 mmol/L (136-145); Total Bilirubin 0.4 mg/dL (0.15-1.2); Total Protein 5.9 g/dL (6.6-8.7)
[2022-05-21] MEDS: atorvastatin 40 mg Tablet PO (05:48)
[2022-05-21] MEDS: levothyroxine 88 mcg Tablet PO (05:48)
[2022-05-21] MEDS: isosorbide mononitrate ER 30 mg Tablet 15 MG PO ×2 (05:48→17:03)
[2022-05-21] MEDS: aspirin 81 mg EC Tablet PO (05:48)
[2022-05-21] MEDS: buPROPion XL (24 HR) 300 mg Tablet PO (05:48)
--- NOTE | 2022-05-21 05:51 | PC.NURSE ---
spoke with Dr. Juarez due to pt soft BP, order received to hold metoprolol this morning and change isosorbide to 15 mg instead of 30 mg
[2022-05-21 06:24] LABS: Glucose Point of Care 104 mg/dL (70-110)
[2022-05-21] MEDS: budesonide 0.5 mg/2 mL Neb INHALATION ×2 (07:38→20:53)
[2022-05-21 08:13] LABS: Glucose Point of Care 102 mg/dL (70-110)
--- NOTE | 2022-05-21 08:24 | PC.SLP ---
Patient is bipap dependent at this time and cannot participate in the MBS planned for today.
--- NOTE | 2022-05-21 09:42 | PC.SOCIAL ---
Imm update Imm udated with patient at bedside. Copy of page 2 provided. Patient verbalized understanding. Copy in chart initialed, dated and timed.
[2022-05-21] MEDS: gabapentin 100 mg Capsule PO ×2 (10:07→14:34)
[2022-05-21] MEDS: ranolazine (12HR) 500 mg Tablet PO ×2 (10:07→17:03)
[2022-05-21] MEDS: apixaban 5 mg Tablet 2.5 MG PO ×2 (10:08→20:11)
[2022-05-21] MEDS: BuSPIRONE 10 mg Tablet 5 MG PO ×3 (10:08→20:11)
[2022-05-21 11:23] LABS: Glucose Point of Care 108 mg/dL (70-110)
--- NOTE | 2022-05-21 14:51 | P.PN_ITS ---
Subjective Subjective: Overnight on BiPAP. This morning doing slightly better, weaned down to nasal cannula. States he has intermittent cough, sometimes coughing/choking up when eating or drinking. Only gets short of breath with eating. With him modified barium swallow for now deferred due to oxygenation concerns. Discussed empirically starting dysphagia diet for now due to concern for component of aspiration. Vitals/I&O/Wt Last Vital Signs Temp 98.1 F 05/21/22 11:48 Pulse 81 05/21/22 14:26 Resp 20 H 05/21/22 14:14 BP 138/64 05/21/22 11:48 Pulse Ox 91 05/21/22 14:14 O2 Del Method 05/21/22 14:14 O2 Flow Rate 15 05/21/22 14:14 FiO2 60 05/21/22 07:40 05/20/22 05/21/22 05/21/22 22:59 06:59 14:59 Intake Total 980 / 1270 50 / 1320 50 / 50 Output Total 450 / 725 600 / 1325 Balance 530 / 545 -550 / -5 50 / 50 Weight last 48 hrs Weight 118.433 kg Weight 116.233 kg Physical Exam Narrative: Up in chair. Const: COMMON NORMALS: patient oriented x3 and alert GENERAL APPEARANCE: cooperative ORIENTATION/CONSCIOUSNESS: Yes awake HENMT: COMMON NORMALS: oropharynx normal Neck/C-Spine: COMMON NORMALS: no JVD Resp: COMMON NORMALS: normal respiratory effort AUSCULTATION: rales (Faint at bases.) Cardio: COMMON NORMALS: no JVD, regular rhythm, S1 normal heart sound present, S2 normal heart sound present and No murmurs present (Cardio) RHYTHM: regular rhythm HEART SOUNDS: S1 normal heart sound present and S2 normal heart sound present GI: COMMON NORMALS: Normal to inspection, nondistended, normoactive bowel sounds present, Soft to palpation and non-tender PALPATION: Yes Soft to palpation Extremity: COMMON NORMALS: no joint enlargement and no pedal edema Neuro: COMMON NORMALS: patient oriented x3 and moves all extremities SENSORIUM/ORIENTATION: Yes alert Data 05/21/22 03:57 05/21/22 03:57 Micro: Microbiology 05/16/22 02:52 Blood Culture - Final Blood NO GROWTH AFTER 5 DAYS 05/15/22 22:28 Blood Culture - Final Blood NO GROWTH AFTER 5 DAYS 05/20/22 19:04 Blood Culture - Preliminary Blood SPECIMEN COLLECTED 05/20/22 18:57 Blood Culture - Preliminary Blood SPECIMEN COLLECTED A&P Assessment and plan (1) Respiratory failure with hypoxia: Most likely secondary to acute decompensation of congestive heart failure and aspiration. MBS deferred for now as required BiPAP support again. Downgrade diet to dysphagia with slightly thickened liquids, he also does not have teeth, will give ground ST evaluation. MBS once oxygenation doing a bit better. Aspiration precautions. Worsening renal. Diuretics have been held for now. Cardiac diet restriction. Fluid restriction 1 L. Most likely patient aspirated while having his meal when he was little drowsy during his meal on 05/17. With worsening renal function, MRSA in wound and MRSA positive PCR due to nasal carriage stop Zosyn, continue vancomycin. For now empiric coverage with cefepime adjusted for renal function. Patient has history of 30 to 35% with diastolic dysfunction and regional wall motion abnormality. Hold off on any further Bumex for now. Strict input output charting, daily weights. Maintain Little. Appreciate CT chest results. PE unlikely. Switch anticoagulation back to Eliquis 2.5 mg twice daily. Continue oral vancomycin and Zosyn for now. Sputum culture pending. Respiratory viral panel negative. Incentive spirometry, flutter valve. (2) Acute kidney injury superimposed on CKD: Switch away from combination of vancomycin and Zosyn. Stop Zosyn, switched to cefepime. Assess kidney ultrasound. Urine studies. Diuretics on hold. Dose of Wellbutrin, gabapentin. (3) Chest pain: Seen multiple times in the past for similar complaints. Multiple cardiac angiogram as per the chart with patent stents. Lexiscan stress test negative for any acute ischemia and consistent with myocardial scarring. Continue with aspirin, statin, Imdur, beta-zaira. (4) Cellulitis and abscess of left leg: Post I&D. Continue wound care. MRSA and wound culture. Continue vancomycin (5) 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 mellitus: Patient complaining of bilateral lower foot pain most likely related to neuropathy. Decrease gabapentin dose due to JESUS. Requip to 0.5 mg nightly. Stop oxycodone. Decrease bupropion dose. Continue BuSpar. Celexa stopped as above. (6) Chronic systolic heart failure: (7) Hypertension: Goal blood pressure less than 140/90 mmHg. (8) CRF (chronic renal failure): (9) Chronic anticoagulation: Continue with chronic Eliquis for history of DVT and PE in the past. Plan Full code. Protonix for PUD prophylaxis Eliquis is suffice DVT prophylaxis Discharge planning: SNF for further rehabilitation as his is not able to t beth care of him at his home anymore. Attestations Medical Necessity Statement*: Continue admission for cyst management of hypoxic respiratory monitor, aspiration pneumonia, decompensated CHF, JESUS on CKD, in setting of cardiomyopathy with low ejection fraction. Coding Level of Care Code Acute Manager Internal for g Fwd Diagnoses Respiratory failure with hypoxia J96.91 Acute kidney injury superimposed on CKD N17.9; N18.9 Chest pain R07.9 Cellulitis and abscess of left leg L03.116; L02.416 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 mellitus E11.42 Chronic systolic heart failure I50.22 Hypertension I10 CRF (chronic renal failure) N18.9 Chronic anticoagulation Z79.01
--- NOTE | 2022-05-21 15:03 | USR_ITS ---
PROCEDURE INFORMATION: Exam: US Retroperitoneal; Complete; Kidneys and Bladder Exam date and time: 05/21/2022 4:06 PM Age: 51 years old Clinical indication: Condition or disease; Other: Ckd; Additional info: Lino on ckd TECHNIQUE: Imaging protocol: Real-time ultrasound of the retroperitoneum with image documentation. Complete exam focused on the kidneys and bladder. COMPARISON: US renal BI* [id number] 05/06/2022 8:17 PM FINDINGS: Right kidney: The right kidney is unremarkable. Cortical thickness and echotexture is normal. There is no hydronephrosis. No visible stones. The right kidney measures 10.8 cm in length. Left kidney: The left kidney is unremarkable. Cortical thickness and echotexture is normal. There is no hydronephrosis. No visible stones. The left kidney measures 10.5 cm in length. Aorta: The abdominal aorta is unremarkable. Urinary bladder: The urinary bladder is empty. US/US renal BI* [id number] IMPRESSION: No pathologic findings.
[2022-05-21] MEDS: cefepime 1,000 MG in sodium chloride 0.9% (plus) 50 ML 100 MG IV (15:49)
[2022-05-21 16:17] LABS: Urea Nitrogen,Urine Random 288 mg/dL; Urine Creatinine 49 mg/dL (39-259)
[2022-05-21 16:40] LABS: Glucose Point of Care 155 mg/dL (70-110)
[2022-05-21 17:01] LABS: Glucose Point of Care 142 mg/dL (70-110)
[2022-05-21] MEDS: metoprolol tartrate 50 mg Tablet 25 MG PO (17:03)
[2022-05-21] MEDS: ropinirole 0.25 mg Tablet 0.5 MG PO (20:11)
[2022-05-21] MEDS: trazodone 100 mg Tablet 400 MG PO (20:11)
[2022-05-21 21:08] LABS: Glucose Point of Care 267 mg/dL (70-110)
[2022-05-21] MEDS: insulin glargine 100 units/1 mL 30 UNIT SUBCUT (21:10)
[2022-05-21] MEDS: insulin lispro 100 unit/1 mL SUBCUT (21:21)
--- NOTE | 2022-05-21 22:18 | P.CONIM_ITS ---
Providers/Reason For Consult Consulting Physician/Specialty*: /Nephrology Reason for Consult*: Acute on CKD Attending Physician: Andrew Gonzalez Primary Care Provider: Kp Montanez DO History of Present Illness History of Present Illness patient is a 51-year-old male with past medical history of coronary artery disease status post stents, hypertension, diabetes, chronic kidney disease with a baseline creatinine in the 2 range, peripheral vascular disease who was recently admitted to the hospital due to JESUS and was discharged on 05/11/2022. Creatinine has returned to baseline at the time of discharge. JESUS was thought to be due to aggressive diuresis and diuretics were held temporarily and then resumed at the time of discharge. Patient reports back to the ER due to complaint of chest pain and was also noted to have cellulitis and abscess in the left leg Creatinine on presentation was 2.5 worsened to 5.4 currently, nonoliguric. Chest CT has showed bilateral lower lobe consolidations consistent with pneumonia. Renal ultrasound with no acute findings, no obstruction. Review of Systems Narrative: oTHER ROS negative Medications/Allergies Home Medications Medication Instructions Recorded Confirmed Last Taken Type aspirin 81 mg tablet,delayed 81 mg PO DAILY@0600 06/01/19 05/16/22 05/05/22 History release dulaglutide 0.75 mg/0.5 mL 0.75 mg SUBCUT Q7D 06/01/19 05/16/22 05/05/22 History subcutaneous pen injector (Trulicity) multivitamin (Daily Multi-Vitamin 1 tab PO QPM 06/01/19 05/16/22 05/05/22 History tablet) cyclobenzaprine 10 mg tablet 10 mg PO TID PRN MUSCLE SPASMS 01/07/20 05/16/22 04/25/22 History insulin lispro 100 unit/mL See Rx Instructions .Route 09/25/20 05/16/22 04/25/22 History subcutaneous solution (Humalog .COMPLEX see pharmacy comments U-100 Insulin) nitroglycerin 0.4 mg sublingual 0.4 mg sublingual Q5M PRN Chest 10/10/20 05/16/22 04/25/22 Rx tablet (Nitrostat) Pain #25 tabs levothyroxine 88 mcg tablet 88 mcg PO QAM 02/09/21 05/16/22 05/05/22 History promethazine 25 mg tablet 25 mg PO Q6H PRN Pain 02/22/21 05/16/22 04/25/22 History amlodipine 5 mg tablet 5 mg PO DAILY #0 tabs 04/17/21 05/16/22 04/25/22 Rx metoprolol tartrate 50 mg tablet 25 mg PO BID@0600,1800 #0 tabs 04/17/21 05/16/22 04/25/22 Rx lidocaine 5 % topical patch 1 patch transdermal PRN PRN Pain 05/12/21 05/16/22 04/25/22 History isosorbide mononitrate 30 mg 30 mg PO BID@0600,1800 #180 tabs 05/22/21 05/16/22 04/25/22 Rx tablet,extended release 24 hr docusate sodium 100 mg capsule 100 mg PO BID #30 caps 06/15/21 05/16/22 04/25/22 Rx (Colace) apixaban 2.5 mg tablet (Eliquis) 2.5 mg PO BID 09/14/21 05/16/22 05/05/22 History insulin degludec 200 unit/mL (3 38 unit SUBCUT BEDTIME 12/11/21 05/16/22 05/05/22 History mL) subcutaneous pen (Tresiba FlexTouch U-200 insulin) atorvastatin 40 mg tablet 40 mg PO QAM #90 tabs 12/19/21 05/16/22 05/05/22 Rx ranolazine 500 mg tablet,extended 500 mg PO BID #180 tabs 01/02/22 05/16/22 05/05/22 Rx release,12 hr (Ranexa) bupropion HCl 300 mg 24 hr tablet, 300 mg PO QAM #30 tabs 03/01/22 05/16/22 05/05/22 Rx extended release (Wellbutrin XL) buspirone 5 mg tablet 5 mg PO TID #90 tabs 03/01/22 05/16/22 05/05/22 Rx citalopram 40 mg tablet 40 mg PO DAILY #30 tabs 03/01/22 05/16/22 04/25/22 Rx trazodone 100 mg tablet 400 mg PO BEDTIME PRN insomnia 03/01/22 05/16/22 04/25/22 Rx #120 tabs bumetanide 2 mg tablet 2 mg PO BID 30 days #60 tabs 05/11/22 05/16/22 05/05/22 Rx potassium chloride 20 mEq 10 meq PO DIRECTED 30 days #30 05/11/22 05/16/22 04/25/22 Rx tablet,extended release(part/cryst) tabs calcitriol 0.25 mcg capsule See Rx Instructions .Route .COMPLEX 05/16/22 05/16/22 Unknown History metolazone 5 mg tablet 5 mg PO EVERY OTHER DAY 05/16/22 05/16/22 Unknown History Allergies Allergy/AdvReac Type Severity Reaction Status Date / Time Iodinated Contrast Media Allergy Severe ALGY-Difficulty Verified 04/25/22 09:08 Breathing iodine Allergy Severe ALGY-Difficulty Verified 04/25/22 09:08 Breathing metoclopramide [From Reglan] Allergy Severe ALGY-Difficulty Verified 04/25/22 09:08 Breathing nalbuphine [From Nubain] Allergy Severe ADR-Diarrhe Verified 04/25/22 09:08 a naproxen [From Naprosyn] Allergy Severe ADR-Vomitin Verified 04/25/22 09:08 g Sulfa (Sulfonamide Allergy Severe ALGY-Difficulty Verified 04/25/22 09:08 Antibiotics) Breathing ketorolac Allergy Intermediate ADR-Nausea Verified 04/25/22 09:08 ondansetron [From Zofran] Allergy Intermediate ADR-Abdominal Verified 04/25/22 09:08 Pain prochlorperazine Allergy Intermediate ADR-Irritab Verified 04/25/22 09:08 [From Compazine] le codeine AdvReac Severe ALGY-Anaphy Verified 04/25/22 09:08 laxis haloperidol [From Haldol] AdvReac Intermediate ADR-Irritab Verified 04/25/22 09:08 le Current Medications Generic Name Dose Route Start Last Admin Trade Name Freq PRN Reason Stop Dose Admin Acetaminophen 650 mg 05/16/22 00:47 05/20/22 17:34 Acetaminophen 325 Mg Tablet PO 650 mg Q6H PRN Administration Mild/Mod Pain Or Temp >/= 101 Amlodipine Besylate 5 mg 05/16/22 09:00 05/20/22 09:24 Amlodipine 5 Mg Tablet PO 5 mg DAILY RANDY Administration Apixaban 2.5 mg 05/19/22 21:00 05/21/22 20:11 Apixaban 5 Mg Tablet PO 2.5 mg BID@0900,2100 RANDY Administration Aspirin 81 mg 05/16/22 06:00 05/21/22 05:48 Aspirin 81 Mg Ec Tablet PO 81 mg DAILY@0600 RANDY Administration Atorvastatin Calcium 40 mg 05/16/22 06:00 05/21/22 05:48 Atorvastatin 40 Mg Tablet PO 40 mg QAM RANDY Administration Budesonide 0.5 mg 05/18/22 08:00 05/21/22 20:53 Budesonide 0.5 Mg/2 Ml Neb INHALATION 0.5 mg BID.RESPIRATORY RANDY Administration Buspirone HCl 5 mg 05/18/22 21:00 05/21/22 20:11 Buspirone 10 Mg Tablet PO 5 mg TID RANDY Administration Vancomycin/PEG/NADA/Lysine/Water 1,250 mg in 250 mls @ 200 mls/hr 05/20/22 20:00 05/20/22 20:25 Vancocin IV Infused Q36H RANDY Infusion Cefepime HCl 1,000 mg/ Sodium 50 mls @ 100 mls/hr 05/21/22 15:00 05/21/22 16:19 Chloride IV Infused Q24H RANDY Infusion Protocol Insulin Glargine 30 unit 05/17/22 21:00 05/21/22 21:10 Insulin Glargine 100 Units/1 Ml SUBCUT 30 unit BEDTIME RANDY Administration Insulin Human Lispro 0 unit 05/17/22 12:00 05/21/22 21:21 Insulin Lispro 100 Unit/1 Ml SUBCUT 10 unit WM&BEDTIME RANDY Administration Protocol Ipratropium [place] 0.5 mg 05/18/22 14:00 05/21/22 20:53 Ipratropium 0.5 Mg/2.5 Ml Neb INHALATION 0.5 mg Q6H.RESP RANDY Administration Isosorbide Mononitrate 15 mg 05/21/22 06:00 05/21/22 17:03 Isosorbide Mononitrate Er 30 Mg Tablet PO 15 mg BID RANDY Administration Levalbuterol HCl 0.63 mg 05/20/22 20:00 05/21/22 20:53 Levalbuterol 0.63 Mg/3 Ml Neb INHALATION 0.63 mg Q6H.RESP RANDY Administration Levothyroxine Sodium 88 mcg 05/16/22 06:00 05/21/22 05:48 Levothyroxine 88 Mcg Tablet PO 88 mcg QAM RANDY Administration Metoprolol Tartrate 25 mg 05/16/22 06:00 05/21/22 17:03 Metoprolol Tartrate 50 Mg Tablet PO 25 mg BID@0600,1800 RANDY Administration Pantoprazole Sodium 40 mg 05/16/22 00:47 05/21/22 00:49 Pantoprazole 40 Mg Sdv IVP 40 mg Q24H RANDY Administration Ranolazine 500 mg 05/16/22 09:00 05/21/22 17:03 Ranolazine (12hr) 500 Mg Tablet PO 500 mg BID RANDY Administration Ropinirole HCl 0.5 mg 05/18/22 21:00 05/21/22 20:11 Ropinirole 0.25 Mg Tablet PO 0.5 mg BEDTIME RANDY Administration Trazodone HCl 400 mg 05/16/22 00:47 05/21/22 20:11 Trazodone 100 Mg Tablet PO 400 mg BEDTIME PRN Administration insomnia PFSH Acute PFSH: Medical History (Updated 05/21/22 @ 14:59 by Andrew Gonzalez MD) Acute kidney injury superimposed on CKD Acute on chronic congestive heart failure Alcohol use disorder, moderate, in sustained remission Anemia Atherosclerotic heart disease of [place] coronary artery with other forms of angina pectoris hx of CAD with prior stenting of proximal LAD, LCx, RCA Chronic anticoagulation Eliquis Chronic kidney disease -baseline Cr appears to be around 1.5 Chronic systolic heart failure The current echocardiogram revealed LV ejection fraction of 35 to 40% Depression Diabetes A1c-7.6 (08/2019) DVT (deep venous thrombosis) (~03/2020) Proximal left subclavian, basilic and brachial veins, started eliquis this stay, felt present prior to admission Foot drop, left GERD (gastroesophageal reflux disease) H/O acute myocardial infarction H/O deep venous thrombosis developed compartment syndrome History of pulmonary embolism Hyperlipidemia Hypertension Hypothyroidism Ischemic cardiomyopathy Major depressive disorder, recurrent severe without psychotic features Onychodystrophy Osteoarthritis of spine Surgical History H/O colonoscopy (11/14/20) 08/2015 H/O esophagogastroduodenoscopy (11/14/20) 08/2015 H/O removal of testicle left H/O skin graft H/O vasectomy History of appendectomy 1995 History of coronary artery stent placement 5x History of excision of mass 06/08/2019: Subcutaneous mass on back History of inguinal hernia repair, bilateral 1999 History of removal of Port-a-Cath Hx of cholecystectomy Peritoneal dialysis catheter in situ (06/15/21) Port-A-Cath in place Family History Grandfather Cancer skin cancer Parkinson disease Brother Hypertension Father Heart disease Mother Hypertension Stroke Aneurysm Grandmother Aneurysm Other Crohn disease Denies family history of Anesthesia complication Bleeding disorder Social History Smoking and tobacco status: never smoked Second hand smoke exposure: No Smoking risk assessment/counseling performed?: No Alcohol intake: former Year of sobriety/quit date alcohol: 2015 Former alcohol use details: Only holidays Desire information about alcohol rehabilitation?: No Counseling given: No Desire information about substance/drug rehabilitation?: No Counseling given: No Lives independently: Yes Household members: significant other Marital status: Single Current occupational status: disabled History of recent travel: No Vitals/I&O/Wt Last Vital Signs Temp 98.4 F 05/21/22 19:00 Pulse 75 05/21/22 21:03 Resp 18 05/21/22 21:03 BP 157/75 05/21/22 19:00 Pulse Ox 91 05/21/22 21:03 O2 Del Method 05/21/22 21:03 O2 Flow Rate 15 05/21/22 21:03 FiO2 60 05/21/22 20:00 05/21/22 05/21/22 05/21/22 06:59 14:59 22:59 Intake Total 50 / 1320 50 / 50 100 / 150 Output Total 600 / 1325 950 / 950 Balance -550 / -5 50 / 50 -850 / -800 Weight last 48 hrs Weight 118.433 kg Weight 116.233 kg Physical Exam Narrative: patient is awake alert, no acute distress HEENT: PERRLA S1-S2 regular rate and rhythm per report Clear to auscultation per report Abdomen soft and nontender per report No pedal edema Data 05/21/22 03:57 05/21/22 03:57 Micro: Microbiology 05/20/22 18:57 Blood Culture - Preliminary Blood NEGATIVE TO DATE 05/20/22 19:04 Blood Culture - Preliminary Blood NEGATIVE TO DATE 05/16/22 02:52 Blood Culture - Final Blood NO GROWTH AFTER 5 DAYS 05/15/22 22:28 Blood Culture - Final Blood NO GROWTH AFTER 5 DAYS A&P Assessment and plan (1) Acute kidney injury superimposed on CKD: Plan 1. Acute on chronic kidney disease: Creatinine baseline is in the 2 range currently worsened to 5.4 likely from possible ATN due to infection/ sepsis and CRS. -No hypotension, no recent IV contrast exposure. No obstruction on renal ultrasound. -Patient nonoliguric, continue to closely monitor for now. Diuretics are currently on hold, will resume in a.m. 2. Acute on chronic respiratory failure: Multifactorial secondary to pneumonia and CHF. Noted switch of antibiotics from Vanco Zosyn to cefepime. Dose meds per GFR less than 10 3. Left leg abscess/cellulitis: Status post I&D, antibiotics as above 4. Coronary artery disease with stents: Lexiscan stress test negative Patient evaluated using audiovisual cart. Time spent 35 minutes Consult Attestations Medical Necessity Statement: Patient requires continued hospital stay for close monitoring and further management Coding Level of Care Code Acute Cigar Inspector for [facility] Diagnoses Acute kidney injury superimposed on CKD N17.9; N18.9
[2022-05-22] VITALS (20 sets, daily range): BP systolic 132–169; BP diastolic 52–78; PULSE 66–84; RESP 16–27; TEMP 36.6–37.3; O2SAT 89–97
[2022-05-22] MEDS: pantoprazole 40 mg SDV IVP (00:18)
[2022-05-22] MEDS: levalbuterol 0.63 mg/3 mL Neb INHALATION ×4 (01:54→21:22)
[2022-05-22] MEDS: ipratropium 0.5 mg/2.5 mL Neb INHALATION ×4 (01:54→21:22)
[2022-05-22 05:21] LABS: Basophils # 0.1 10^3/uL (0.0-0.1); Basophils % 0.5 %; Eosinophils # 0.1 10^3/uL (0.0-0.8); Eosinophils % 0.6 %; Hematocrit 22.3 % (42.0-52.0); Hemoglobin 7.5 g/dL (11.7-16.6); Lymphocytes # 0.6 10^3/uL (0.8-4.8); Lymphocytes % 5.3 %; Mean Corpuscular HGB Conc 33.6 g/dL (30.0-36.0); Mean Corpuscular Hemoglobin 30.4 pg (28.0-34.0); Mean Corpuscular Volume 90.3 fl (80-94); Monocytes # 0.9 10^3/uL (0.2-0.9); Neutrophils # 9.53 10^3/uL (1.8-7.7); Neutrophils % 84.5 %; Nucleated Red Blood Cells % 0 %; Platelet Count 340 10^3/cmm (130-400); Red Blood Count 2.47 10^6/uL (4.1-5.3); Red Cell Distribution Width 15.1 % (12.1-15.1); White Blood Count 11.3 10^3/uL (4.0-10.0)
[2022-05-22 05:46] LABS: Alanine Aminotransferase 13 U/L (0-41); Albumin Level 2.5 g/dL (3.5-5.2); Alkaline Phosphatase 142 U/L (40-130); Anion Gap 20.9 (5-19); Aspartate Amino Transferase 31 U/L (0-40); Blood Urea Nitrogen 74 mg/dL (6-20); Calcium 7.4 mg/dL (8.5-10.5); Carbon Dioxide 21 mmol/L (22-29); Chloride 94 mmol/L (98-107); Globulin 3.4 g/dL (1.3-4.6); Glomerular Filtration Rate 10.9 mL/min (90-130); Glucose 221 mg/dL (65-115); Osmolality Calculated 303 mOsm/kg (285-295); Potassium 3.9 mmol/L (3.5-5.1); Sodium 132 mmol/L (136-145); Total Bilirubin 0.3 mg/dL (0.15-1.2); Total Protein 5.9 g/dL (6.6-8.7)
[2022-05-22] MEDS: atorvastatin 40 mg Tablet PO (05:47)
[2022-05-22] MEDS: metoprolol tartrate 50 mg Tablet 25 MG PO ×2 (05:47→17:27)
[2022-05-22] MEDS: levothyroxine 88 mcg Tablet PO (05:47)
[2022-05-22] MEDS: aspirin 81 mg EC Tablet PO (05:48)
[2022-05-22] MEDS: buPROPion XL (24 HR) 300 mg Tablet 150 MG PO (05:48)
[2022-05-22 06:44] LABS: Glucose Point of Care 241 mg/dL (70-110)
[2022-05-22] MEDS: budesonide 0.5 mg/2 mL Neb INHALATION ×2 (08:19→21:22)
[2022-05-22] MEDS: apixaban 5 mg Tablet 2.5 MG PO ×2 (09:12→20:46)
[2022-05-22] MEDS: BuSPIRONE 10 mg Tablet 5 MG PO ×3 (09:13→20:46)
[2022-05-22] MEDS: isosorbide mononitrate ER 30 mg Tablet 15 MG PO ×2 (09:13→17:26)
[2022-05-22] MEDS: ranolazine (12HR) 500 mg Tablet PO ×2 (09:14→17:26)
[2022-05-22] MEDS: gabapentin 100 mg Capsule PO ×2 (09:14→17:27)
[2022-05-22] MEDS: insulin lispro 100 unit/1 mL SUBCUT ×4 (09:17→20:49)
--- NOTE | 2022-05-22 10:53 | PM.PN ---
Subjective Subjective: Patient currently on BiPAP, urine output 1500 cc Medications: Reviewed: Yes Vitals/I&O/Wt Last Vital Signs Temp 98.3 F 05/22/22 07:49 Pulse 66 05/22/22 08:22 Resp 19 H 05/22/22 08:00 BP 144/78 05/22/22 07:49 Pulse Ox 90 05/22/22 08:22 O2 Del Method 05/22/22 08:00 O2 Flow Rate 15 05/22/22 08:00 FiO2 60 05/22/22 08:22 05/21/22 05/22/22 05/22/22 22:59 06:59 14:59 Intake Total 220 / 270 120 / 120 Output Total 950 / 950 600 / 1550 Balance -730 / -680 -600 / -1280 120 / 120 Weight last 48 hrs Weight 116.29 kg Weight 118.433 kg Physical Exam Narrative: patient is awake alert, no acute distress HEENT: PERRLA S1-S2 regular rate and rhythm per report Clear to auscultation per report Abdomen soft and nontender per report No pedal edema Data 05/22/22 04:53 05/22/22 04:53 Micro: Microbiology 05/21/22 14:28 Gram Stain - Final Sputum - Endotracheal Tube Aspirate Sputum Culture - Preliminary 05/20/22 18:57 Blood Culture - Preliminary Blood NEGATIVE TO DATE 05/20/22 19:04 Blood Culture - Preliminary Blood NEGATIVE TO DATE A&P Assessment and plan (1) Acute kidney injury superimposed on CKD: Plan 1. Acute on chronic kidney disease: Creatinine baseline is in the 2 range currently worsened to 5.5 likely from possible ATN due to infection/ sepsis and CRS. -No hypotension, no recent IV contrast exposure. No obstruction on renal ultrasound. -Patient nonoliguric, continue to closely monitor for now. -ordered 80 mg IV lasix - If no improvement , may require temporary HD 2. Acute on chronic respiratory failure: Multifactorial secondary to pneumonia and CHF. Noted switch of antibiotics from Vanco Zosyn to cefepime. Dose meds per GFR less than 10 3. Left leg abscess/cellulitis: Status post I&D, antibiotics as above 4. Coronary artery disease with stents: Lexiscan stress test negative Patient evaluated using audiovisual cart. Time spent 35 minutes Attestations Medical Necessity Statement*: Continue admission for cyst management of hypoxic respiratory monitor, aspiration pneumonia, decompensated CHF, JESUS on CKD, in setting of cardiomyopathy with low ejection fraction. 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
[2022-05-22 12:03] LABS: Glucose Point of Care 174 mg/dL (70-110)
[2022-05-22] MEDS: FUROsemide 10 mg/mL SDV 10mL 80 MG IVP (12:46)
[2022-05-22] MEDS: cefepime 1,000 MG in sodium chloride 0.9% (plus) 50 ML 100 MG IV (14:42)
--- NOTE | 2022-05-22 16:41 | P.PN_ITS ---
Subjective Subjective: Overnight required BiPAP. Currently states breathing is slightly better. Yesterday while on nasal cannula was assessed by speech therapy, diet order adjusted to pur?ed with thickened liquids. He states he does not much like the thickened liquids, but does state that so far has not had any addit ional episodes of choking up. No nausea or vomiting. Medications: Reviewed: Yes Vitals/I&O/Wt Last Vital Signs Temp 98.1 F 05/22/22 15:33 Pulse 83 05/22/22 15:33 Resp 21 H 05/22/22 15:33 BP 169/52 05/22/22 15:33 Pulse Ox 93 05/22/22 15:33 O2 Del Method 05/22/22 15:33 O2 Flow Rate 15 05/22/22 13:42 FiO2 65 05/22/22 15:20 05/22/22 05/22/22 05/22/22 06:59 14:59 22:59 Intake Total 480 / 480 50 / 530 Output Total 600 / 1550 Balance -600 / -1280 480 / 480 50 / 530 Weight last 48 hrs Weight 116.29 kg Weight 118.433 kg Physical Exam Narrative: Up in bed. Const: COMMON NORMALS: patient oriented x3 and alert GENERAL APPEARANCE: cooperative ORIENTATION/CONSCIOUSNESS: Yes awake HENMT: COMMON NORMALS: oropharynx normal Neck/C-Spine: COMMON NORMALS: no JVD Resp: COMMON NORMALS: normal respiratory effort AUSCULTATION: rhonchi Cardio: COMMON NORMALS: no JVD, regular rhythm, S1 normal heart sound present, S2 normal heart sound present and No murmurs present (Cardio) RHYTHM: regular rhythm HEART SOUNDS: S1 normal heart sound present and S2 normal heart sound present GI: COMMON NORMALS: Normal to inspection, nondistended, normoactive bowel sounds present, Soft to palpation and non-tender PALPATION: Yes Soft to palpation Extremity: COMMON NORMALS: no joint enlargement and no pedal edema Neuro: COMMON NORMALS: patient oriented x3 and moves all extremities S ENSORIUM/ORIENTATION: Yes alert Skin: NARRATIVE SKIN EXAM: Scars after fasciotomies OTHER: Improvement in cellulitis LLE Urinary Catheter Management: Little: Cath Placed During This Visit: yes Reason for Continuing Indwelling Catheter: Acute Urinary Retention or Obstruction Urinary Catheter Date of Insertion: 05/19/22 Data 05/22/22 04:53 05/22/22 04:53 Micro: Microbiology 05/21/22 14:28 Gram Stain - Final Sputum - Endotracheal Tube Aspirate Sputum Culture - Preliminary 05/20/22 18:57 Blood Culture - Preliminary Blood NEGATIVE TO DATE 05/20/22 19:04 Blood Culture - Preliminary Blood NEGATIVE TO DATE A&P Assessment and plan (1) Respiratory failure with hypoxia: Minimal improvement. Continue BiPAP support, attempts to wean to heated high flow. Today intermittently weaned down to high flow cannula. Empiric an tibiotic coverage. Aspiration precautions. Most likely secondary to acute decompensation of congestive heart failure and aspiration. MBS deferred for now as required BiPAP support again. Downgrade diet to dysphagia with slightly thickened liquids, he also does not have teeth, will give ground ST evaluation. MBS once oxygenation doing a bit better. Aspiration precautions. Worsening renal function. Diuretics have been held for now. Cardiac diet restriction. Fluid restriction 1 L. Most likely patient aspirated while having his meal when he was little drowsy during his meal on 05/17. With worsening renal function, MRSA in wound and MRSA positive PCR due to nasal carriage stop Zosyn, continue vancomycin. For now empiric coverage with cefepime adjusted for renal function. Patient has history of 30 to 35% with diastolic dysfunction and regional wall motion abnormality. Hold off on any further Bumex for now. Strict input output charting, daily weights. Maintain Little. Appreciate CT chest results. PE unlikely. Switch anticoagulation back to Eliquis 2.5 mg twice daily. Continue vancomycin and cefepime for now. Sputum culture pending. Few yeast on day 1. Respiratory viral panel negative. Incentive spirometry, flutter valve. (2) Acute kidney injury superimposed on CKD: Appreciate nephrology assessment. Diuretic challenge. No obstructive uropathy on kidney ultrasound. Dose of Wellbutrin, gabapentin were decreased. (3) Chest pain: Seen multiple times in the past for similar complaints. Multiple cardiac angiogram as per the chart with patent stents. Lexiscan stress test negative for any acute ischemia and consistent with myocardial scarring. Continue with aspirin, statin, Imdur, beta-zaira. (4) Cellulitis and abscess of left leg: Post I&D. Continue wound care. MRSA PCR positive. Wound culture growing MRSA. Continue vancomycin. (5) 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 mellitus: Patient complaining of bilateral lower foot pain most likely related to neuropathy. Decreased gabapentin dose due to JESUS. Requip to 0.5 mg nightly. Decreased bupropion dose. Continue BuSpar. Celexa stopped. (6) Chronic systolic heart failure: (7) Hypertension: Goal blood pressure less than 140/90 mmHg. (8) CRF (chronic renal failure): (9) Chronic anticoagulation: Continue with chronic Eliquis for history of DVT and PE in the past. Plan Full code. Protonix for PUD prophylaxis Eliquis is suffice DVT prophylaxis Discharge planning: SNF for further rehabilitation as his is not able to take care of him at his home anymore. Attestations Medical Necessity Statement*: Continue admission for management of respiratory failure. Coding Level of Care Code Acute Food Bagging Machine Operator for [facility] Fwd Exam Comprehensive Diagnoses Respiratory failure with hypoxia J96.91 Acute kidney injury superimposed on CKD N17.9; N18.9 Chest pain R07.9 Cellulitis and abscess of left leg L03.116; L02.416 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 mellitus E11.42 Chronic systolic heart failure I50.22 Hypertension I10 CRF (chronic renal failure) N18.9 Chronic anticoagulation Z79.01
[2022-05-22 17:59] LABS: Glucose Point of Care 212 mg/dL (70-110)
[2022-05-22] MEDS: vancomycin 500 MG in sodium chloride 0.9% (plus) 100 ML 200 MG IV (18:41)
[2022-05-22 20:29] LABS: Glucose Point of Care 258 mg/dL (70-110)
[2022-05-22] MEDS: ropinirole 0.25 mg Tablet 0.5 MG PO (20:46)
[2022-05-22] MEDS: trazodone 100 mg Tablet 400 MG PO (20:47)
[2022-05-22] MEDS: insulin glargine 100 units/1 mL 30 UNIT SUBCUT (20:49)
[2022-05-23] VITALS (14 sets, daily range): BP systolic 112–151; BP diastolic 59–86; PULSE 68–88; RESP 14–22; TEMP 36.6–37.6; O2SAT 81–96
[2022-05-23] MEDS: pantoprazole 40 mg SDV IVP (00:21)
[2022-05-23] MEDS: levalbuterol 0.63 mg/3 mL Neb INHALATION ×4 (02:34→19:39)
[2022-05-23] MEDS: ipratropium 0.5 mg/2.5 mL Neb INHALATION ×4 (02:34→19:39)
[2022-05-23 05:26] LABS: Basophils # 0.1 10^3/uL (0.0-0.1); Basophils % 0.5 %; Eosinophils # 0.2 10^3/uL (0.0-0.8); Eosinophils % 1.7 %; Hematocrit 21.8 % (42.0-52.0); Hemoglobin 7.3 g/dL (11.7-16.6); Lymphocytes % 8.6 %; Mean Corpuscular HGB Conc 33.5 g/dL (30.0-36.0); Mean Corpuscular Hemoglobin 30.5 pg (28.0-34.0); Mean Corpuscular Volume 91.2 fl (80-94); Mean Platelet Volume 9.9 fL (7.4-10.4); Monocytes # 1.1 10^3/uL (0.2-0.9); Monocytes % 8.9 %; Neutrophils # 9.46 10^3/uL (1.8-7.7); Neutrophils % 78.7 %; Nucleated Red Blood Cells % 0 %; Platelet Count 366 10^3/cmm (130-400); Red Blood Count 2.39 10^6/uL (4.1-5.3); Red Cell Distribution Width 15.2 % (12.1-15.1)
[2022-05-23 05:45] LABS: Alanine Aminotransferase 12 U/L (0-41); Albumin Level 2.5 g/dL (3.5-5.2); Alkaline Phosphatase 130 U/L (40-130); Anion Gap 19.5 (5-19); Aspartate Amino Transferase 22 U/L (0-40); Blood Urea Nitrogen 73 mg/dL (6-20); Calcium 7.9 mg/dL (8.5-10.5); Carbon Dioxide 23 mmol/L (22-29); Chloride 98 mmol/L (98-107); Globulin 3.2 g/dL (1.3-4.6); Glomerular Filtration Rate 11.1 mL/min (90-130); Glucose 148 mg/dL (65-115); Osmolality Calculated 308 mOsm/kg (285-295); Potassium 3.5 mmol/L (3.5-5.1); Sodium 137 mmol/L (136-145); Total Bilirubin 0.3 mg/dL (0.15-1.2); Total Protein 5.7 g/dL (6.6-8.7)
[2022-05-23] MEDS: buPROPion XL (24 HR) 300 mg Tablet 150 MG PO (05:56)
[2022-05-23] MEDS: atorvastatin 40 mg Tablet PO (05:57)
[2022-05-23] MEDS: metoprolol tartrate 50 mg Tablet 25 MG PO ×2 (05:58→17:10)
[2022-05-23] MEDS: levothyroxine 88 mcg Tablet PO (05:59)
[2022-05-23] MEDS: aspirin 81 mg EC Tablet PO (05:59)
--- NOTE | 2022-05-23 06:00 | XRR_ITS ---
PROCEDURE INFORMATION: Exam: XR Chest Exam date and time: 05/23/2022 6:48 AM Age: 52 years old Clinical indication: Shortness of breath; Additional info: Hypoxia TECHNIQUE: Imaging protocol: Radiologic exam of the chest. Views: 1 view. COMPARISON: CR (CHEST, ) 05/20/2022 3:02 PM FINDINGS: Lungs: Patchy parenchymal densities seen in the left lower lobe. These findings suggest atelectasis or pneumonia. Pleural spaces: Unremarkable. No pleural effusion. No pneumothorax. Heart/Mediastinum: Unremarkable. No cardiomegaly. Bones/joints: Metallic sternotomy wires are present XR/XR chest 1V portable [id number] IMPRESSION: 1. Left lower lobe parenchymal density atelectasis and or pneumonia 2. Metallic sternotomy wires are present.
[2022-05-23 06:34] LABS: Glucose Point of Care 161 mg/dL (70-110)
[2022-05-23] MEDS: budesonide 0.5 mg/2 mL Neb INHALATION ×2 (07:24→19:39)
[2022-05-23] MEDS: isosorbide mononitrate ER 30 mg Tablet 15 MG PO ×2 (08:42→17:10)
[2022-05-23] MEDS: BuSPIRONE 10 mg Tablet 5 MG PO ×3 (08:43→21:43)
[2022-05-23] MEDS: gabapentin 100 mg Capsule PO ×2 (08:43→17:11)
[2022-05-23] MEDS: apixaban 5 mg Tablet 2.5 MG PO ×2 (08:43→21:43)
[2022-05-23] MEDS: ranolazine (12HR) 500 mg Tablet PO ×2 (08:43→17:10)
[2022-05-23] MEDS: insulin lispro 100 unit/1 mL SUBCUT ×3 (08:44→21:42)
--- NOTE | 2022-05-23 09:05 | PC.SOCIAL ---
IMM update IMM Updated with patient. Verbalized an understanding. Copy Pg 2 provided. Initialled, dated, timed, and placed in chart.
[2022-05-23] MEDS: acetaminophen 325 mg Tablet 650 MG PO ×2 (09:06→17:09)
--- NOTE | 2022-05-23 10:53 | P.PN_ITS ---
Subjective Subjective: on 13 L O2 Medications: Reviewed: Yes Vitals/I&O/Wt Last Vital Signs Temp 98.1 F 05/23/22 08:00 Pulse 79 05/23/22 08:00 Resp 18 05/23/22 08:00 BP 150/63 05/23/22 08:00 Pulse Ox 96 05/23/22 08:00 O2 Del Method 05/23/22 08:00 O2 Flow Rate 15 05/23/22 08:00 FiO2 60 05/23/22 04:00 05/22/22 05/23/22 05/23/22 22:59 06:59 14:59 Intake Total 150 / 630 Output Total 1700 / 1700 450 / 2150 Balance -1550 / -1070 -450 / -1520 Weight last 48 hrs Weight 116.29 kg Physical Exam Narrative: patient is awake alert, no acute distress HEENT: PERRLA S1-S2 regular rate and rhythm per report Clear to auscultation per report Abdomen soft and nontender per report No pedal edema Urinary Catheter Management: Little: Cath Placed During This Visit: yes Reason for Continuing Indwelling Catheter: Acute Urinary Retention or Obstruct ion Urinary Catheter Date of Insertion: 05/19/22 Data 05/23/22 04:50 05/23/22 04:50 Micro: Microbiology 05/21/22 14:28 Gram Stain - Final Sputum - Endotracheal Tube Aspirate Sputum Culture - Preliminary A&P Assessment and plan (1) Acute kidney injury superimposed on CKD: Plan 1. Acute on chronic kidney disease: Creatinine baseline is in the 2 range currently worsened to 5.5 likely from possible ATN due to infection/ sepsis and CRS. -No hypotension, no recent IV contrast exposure. No obstruction on renal ultrasound. -Patient nonoliguric, continue to closely monitor for now. -ordered 80 mg IV lasix x q 12 hours - If no improvement in sob and O2 requirement in next day , will plan on HD inititation 2. Acute on chronic respiratory failure: Multifactorial secondary to pneumonia and CHF. Noted switch of antibiotics from Vanco Zosyn to cefepime. Dose meds per GFR less than 10 3. Left leg abscess/cellulitis: Status post I&D, antibiotics as above 4. Coronary artery disease with stents: Lexiscan stress test negative Patient evaluated using audiovisual cart. Time spent 35 minutes Attestations Medical Necessity Statement*: Continue admission for management of respiratory failure. Coding Level of Care Code Acute Real Estate Account Executive for [facility] Fwd Diagnoses Acute kidney injury superimposed on CKD N17.9; N18.9
[2022-05-23 12:11] LABS: Glucose Point of Care 125 mg/dL (70-110)
[2022-05-23] MEDS: cefepime 1,000 MG in sodium chloride 0.9% (plus) 50 ML 100 MG IV (15:10)
[2022-05-23 16:48] LABS: Glucose Point of Care 188 mg/dL (70-110)
--- NOTE | 2022-05-23 19:17 | PM.PN ---
Subjective Subjective: He has been having some pain in the right lower quadrant, around the site of his hernia. No tenderness on palpation, no signs of incarceration of hernia. Medications: Reviewed: Yes Vitals/I&O/Wt Last Vital Signs Temp 97.8 F 05/23/22 16:00 Pulse 84 05/23/22 16:00 Resp 18 05/23/22 16:00 BP 151/86 05/23/22 16:00 Pulse Ox 81 L 05/23/22 16:00 O2 Del Method 05/23/22 16:00 O2 Flow Rate 8 05/23/22 14:00 FiO2 60 05/23/22 04:00 05/23/22 05/23/22 05/23/22 06:59 14:59 22:59 Intake Total 240 / 240 50 / 290 Output Total 450 / 2150 Balance -450 / -1520 240 / 240 50 / 290 Weight last 48 hrs Weight 116.29 kg Physical Exam Narrative: Up in chair. Const: COMMON NORMALS: patient oriented x3 and alert GENERAL APPEARANCE: cooperative ORIENTATION/CONSCIOUSNESS: Yes awake HENMT: COMMON NORMALS: oropharynx normal Neck/C-Spine: COMMON NORMALS: no JVD Resp: COMMON NORMALS: normal respiratory effort AUSCULTATION: rales (Faint at bases.) and rhonchi Cardio: COMMON NORMALS: no JVD, regular rhythm, S1 normal heart sound present, S2 normal heart sound present and No murmurs present (Cardio) RHYTHM: regular rhythm HEART SOUNDS: S1 normal heart sound present and S2 normal heart sound present GI: COMMON NORMALS: Normal to inspection, nondistended, normoactive bowel sounds present, Soft to palpation and non-tender PALPATION: Yes Soft to palpation Extremity: COMMON NORMALS: no joint enlargement and no pedal edema Neuro: COMMON NORMALS: patient oriented x3 and moves all extremities SENSORIUM/ORIENTATION: Yes alert Skin: NARRATIVE SKIN EXAM: Scars after fasciotomies OTHER: Resolved cellulitis. Clean appearing wound after I&D. Small abrasion/erosion posterior left leg behind the knee. Adjacent bruise, without significant swelling or fluctuance. Urinary Catheter Management: Little: Cath Placed During This Visit: yes Reason for Continuing Indwelling Catheter: Acute Urinary Retention or Obstruction Urinary Catheter Date of Insertion: 05/19/22 Data 05/23/22 04:50 05/23/22 04:50 A&P Assessment and plan (1) Respiratory failure with hypoxia: Continues to show respiratory improvement. Weaning down on oxygen requirement. Was on BiPAP overnight, this morning on 12 L nasal cannula, weaning down to 8 L this evening. Reinforced with him importance of dysphagia diet. Continue high flow cannula, intermittent BiPAP as needed. Wean down as tolerating. Today intermittently weaned down to high flow cannula. Empiric antibiotic coverage. Aspiration precautions. Most likely secondary to acute decompensation of congestive heart failure and aspiration. MBS deferred for now as required BiPAP support again. Downgrade diet to dysphagia with slightly thickened liquids, he also does not have teeth, will give ground ST evaluation. MBS once oxygenation doing a bit better. Aspiration precautions. Worsening renal function. Diuretics have been held for now. Cardiac diet restriction. Fluid restriction 1 L. Most likely patient aspirated while having his meal when he was little drowsy during his meal on 05/17. With worsening renal function, MRSA in wound and MRSA positive PCR due to nasal carriage stop Zosyn, continue vancomycin. For now empiric coverage with cefepime adjusted for renal function. Patient has history of 30 to 35% with diastolic dysfunction and regional wall motion abnormality. Hold off on any further Bumex for now. Strict input output charting, daily weights. Maintain Little. Appreciate CT chest results. PE unlikely. Switch anticoagulation back to Eliquis 2.5 mg twice daily. Continue vancomycin and cefepime for now. Sputum culture pending. Few yeast on day 1. Respiratory viral panel negative. Incentive spirometry, flutter valve. (2) Anemia: Worsening anemia, hemoglobin down to 7.3. Request Hemoccult. Continue PPI. Some right lower quadrant/right flank pain today. No obvious bleeding. He is on anticoagulation. Will assess CT abdomen pelvis to look for any source or retroperitoneal bleed, although no recent trauma. Does have underlying CKD. (3) Acute kidney injury superimposed on CKD: Appreciate nephrology assessment. Diuretic challenge. Discussed with family, if no improvement consideration of dialysis. No obstructive uropathy on kidney ultrasound. Dose of Wellbutrin, gabapentin were decreased. (4) Chest pain: Seen multiple times in the past for similar complaints. Multiple cardiac angiogram as per the chart with patent stents. Lexiscan stress test negative for any acute ischemia and consistent with myocardial scarring. Continue with aspirin, statin, Imdur, beta-zaira. (5) Cellulitis and abscess of left leg: Post I&D. Healing well. Erythema resolved. No drainage from wound. Small abrasion/erosion posterior lower leg, without drainage. Does have a bruise in the area, no significant swelling or fluctuance. Continue wound care. MRSA PCR positive. Wound culture growing MRSA. Continue vancomycin. (6) 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 mellitus: Patient complaining of bilateral lower foot pain most likely related to neuropathy. Decreased gabapentin dose due to JESUS. Requip to 0.5 mg nightly. Decreased bupropion dose. Continue BuSpar. Celexa stopped. (7) Chronic systolic heart failure: (8) Hypertension: Goal blood pressure less than 140/90 mmHg. 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 Plan Asterixis: Noted mild degree of metabolic encephalopathy, asterixis. He is also generally weak and deconditioned. Fall precautions. Up only with assistance. Check orthostatics. Full code. Protonix for PUD prophylaxis Eliquis is suffice DVT prophylaxis Discharge planning: SNF for further rehabilitation as his is not able to take care of him at his home anymore. Attestations Medical Necessity Statement*: Continue admission for assessment management of respiratory failure, JESUS on CKD, worsening anemia. 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
--- NOTE | 2022-05-23 19:19 | CTR_ITS ---
PROCEDURE INFORMATION: Exam: CT Abdomen And Pelvis Without Contrast Exam date and time: 05/23/2022 8:09 PM Age: 52 years old Clinical indication: Abdominal pain; Prior surgery; Surgery type: Open heart. Coronary stents. Gb. Appy. Peritoneal cath. Patient HX: PT C/O back pain. Persistent anemia. ; Additional info: Worsening anemia, R lower back pain, assess for any psoas/retroperitoneal bleeding TECHNIQUE: Imaging protocol: Computed tomography of the abdomen and pelvis without contrast. Radiation optimization: All CT scans at this facility use at least one of these dose optimization techniques: automated exposure control; mA and/or kV adjustment per patient size (includes targeted exams where dose is matched to clinical indication); or iterative reconstruction. COMPARISON: CT abdomen pelvis wo con [id number] 01/24/2022 6:58 AM RADIATION DOSE METRICS: Total DLP (mGy-cm): 1178.96 FINDINGS: Tubes, catheters and devices: Percutaneous peritoneal catheter seen with tip coiled in the pelvis. Lungs: Bibasilar airspace infiltrates. Heart: Mild cardiomegaly. Coronary arteries: Coronary artery atherosclerotic calcifications. Liver: Normal. No mass. Gallbladder and bile ducts: Cholecystectomy. Pancreas: Normal. No ductal dilation. Spleen: Normal. No splenomegaly. Adrenal glands: Right adrenal 19 mm and left adrenal 3 cm benign adenomas similar to prior exam. Kidneys and ureters: Normal. No hydronephrosis. Stomach and bowel: Constipation. Diverticulosis without diverticulitis. Appendix: No evidence of appendicitis. Intraperitoneal space: Unremarkable. No free air. No significant fluid collection. Vasculature: Unremarkable. No abdominal aortic aneurysm. Lymph nodes: Unremarkable. No enlarged lymph nodes. Urinary bladder: Little catheter in the urinary bladder with air presumed iatrogenic. Reproductive: Unremarkable as visualized. Bones/joints: Unremarkable. No acute fracture. Soft tissues: Unremarkable. CT/CT abdomen pelvis wo con [id number] IMPRESSION: 1. Negative for findings of retroperitoneal bleeding as clinically questioned. 2. Mild cardiomegaly. 3. Coronary artery atherosclerotic calcifications. 4. Bibasilar airspace infiltrates. 5. Cholecystectomy. 6. Percutaneous peritoneal catheter seen with tip coiled in the pelvis. 7. Constipation. 8. Diverticulosis without diverticulitis. 9. Little catheter in the urinary bladder with air presumed iatrogenic. 10. Right adrenal 19 mm and left adrenal 3 cm benign adenomas similar to prior exam.
[2022-05-23 21:25] LABS: Glucose Point of Care 182 mg/dL (70-110)
[2022-05-23] MEDS: HYDROcodone-acetaminophen 5-325 mg Tablet 1 TAB PO (21:41)
[2022-05-23] MEDS: insulin glargine 100 units/1 mL 30 UNIT SUBCUT (21:42)
[2022-05-23] MEDS: ropinirole 0.25 mg Tablet 0.5 MG PO (21:43)
[2022-05-23] MEDS: trazodone 100 mg Tablet 400 MG PO (21:43)
[2022-05-24] VITALS (13 sets, daily range): BP systolic 107–153; BP diastolic 49–83; PULSE 63–81; RESP 16–23; TEMP 36.4–36.9; O2SAT 90–96
[2022-05-24] MEDS: pantoprazole 40 mg SDV IVP (00:36)
[2022-05-24] MEDS: levalbuterol 0.63 mg/3 mL Neb INHALATION ×3 (02:29→20:39)
[2022-05-24] MEDS: ipratropium 0.5 mg/2.5 mL Neb INHALATION ×3 (02:29→20:39)
[2022-05-24 03:15] LABS: Basophils # 0.1 10^3/uL (0.0-0.1); Basophils % 0.5 %; Eosinophils # 0.3 10^3/uL (0.0-0.8); Eosinophils % 2.5 %; Hematocrit 23.7 % (42.0-52.0); Hemoglobin 7.8 g/dL (11.7-16.6); Lymphocytes # 1.2 10^3/uL (0.8-4.8); Lymphocytes % 9.1 %; Mean Corpuscular HGB Conc 32.9 g/dL (30.0-36.0); Mean Corpuscular Hemoglobin 29.8 pg (28.0-34.0); Mean Corpuscular Volume 90.5 fl (80-94); Monocytes % 7.3 %; Neutrophils # 10.18 10^3/uL (1.8-7.7); Neutrophils % 77.3 %; Nucleated Red Blood Cells % 0.2 %; Platelet Count 439 10^3/cmm (130-400); Red Blood Count 2.62 10^6/uL (4.1-5.3); Red Cell Distribution Width 15.5 % (12.1-15.1); White Blood Count 13.2 10^3/uL (4.0-10.0)
[2022-05-24 03:53] LABS: Anion Gap 19.3 (5-19); Calcium 8.5 mg/dL (8.5-10.5); Carbon Dioxide 25 mmol/L (22-29); Chloride 99 mmol/L (98-107); Glomerular Filtration Rate 10.9 mL/min (90-130); Glucose 111 mg/dL (65-115); Osmolality Calculated 315 mOsm/kg (285-295); Potassium 3.3 mmol/L (3.5-5.1); Sodium 140 mmol/L (136-145)
[2022-05-24] MEDS: atorvastatin 40 mg Tablet PO (05:12)
[2022-05-24] MEDS: aspirin 81 mg EC Tablet PO (05:12)
[2022-05-24] MEDS: levothyroxine 88 mcg Tablet PO (05:13)
[2022-05-24] MEDS: buPROPion XL (24 HR) 300 mg Tablet 150 MG PO (05:13)
[2022-05-24] MEDS: metoprolol tartrate 50 mg Tablet 25 MG PO ×2 (05:13→16:53)
[2022-05-24 05:33] LABS: Blood Urea Nitrogen 81 mg/dL (6-20)
[2022-05-24 06:40] LABS: Glucose Point of Care 111 mg/dL (70-110)
[2022-05-24] MEDS: gabapentin 100 mg Capsule PO ×2 (10:06→16:53)
[2022-05-24] MEDS: BuSPIRONE 10 mg Tablet 5 MG PO ×3 (10:06→20:00)
[2022-05-24] MEDS: isosorbide mononitrate ER 30 mg Tablet 15 MG PO ×2 (10:07→16:52)
[2022-05-24] MEDS: apixaban 5 mg Tablet 2.5 MG PO ×2 (10:09→20:01)
[2022-05-24] MEDS: ranolazine (12HR) 500 mg Tablet PO ×2 (10:09→16:53)
[2022-05-24 11:56] LABS: Glucose Point of Care 116 mg/dL (70-110)
--- NOTE | 2022-05-24 12:12 | P.PN_ITS ---
Subjective Subjective: ON 8l o2 Medications: Reviewed: Yes Vitals/I&O/Wt Last Vital Signs Temp 98.1 F 05/24/22 08:00 Pulse 77 05/24/22 08:00 Resp 18 05/24/22 08:00 BP 147/79 05/24/22 08:00 Pulse Ox 94 05/24/22 08:00 O2 Del Method 05/24/22 07:41 O2 Flow Rate 9 05/24/22 07:41 FiO2 65 05/24/22 00:00 05/23/22 05/24/22 05/24/22 22:59 06:59 14:59 Intake Total 110 / 350 240 / 590 Output Total 850 / 850 575 / 1425 Balance -740 / -500 -335 / -835 Weight last 48 hrs Weight 117.163 kg Physical Exam Narrative: patient is awake alert, no acute distress HEENT: PERRLA S1-S2 regular rate and rhythm per report Clear to auscultation per report Abdomen soft and nontender per report No pedal edema Urinary Catheter Management: Little: Cath Placed During This Visit: yes Reason for Continuing Indwelling Catheter: Other Urinary Catheter Date of Insertion: 05/19/22 Data 05/24/22 02:39 05/24/22 02:39 A&P Assessment and plan (1) Acute kidney injury superimposed on CKD: Plan 1. Acute on chronic kidney disease: Creatinine baseline is in the 2 range currently worsened to 5.5 likely from possible ATN due to infection/ sepsis and CRS. -No hypotension, no recent IV contrast exposure. No obstruction on renal ultrasound. -Patient nonoliguric, continue to closely monitor for now. -ordered 80 mg IV lasix x q 12 hours - If no improvement in sob and O2 requirement , will plan on HD inititation 2. Acute on chronic respiratory failure: Multifactorial secondary to pneumonia and CHF. Noted switch of antibiotics from Vanco Zosyn to cefepime. Dose meds per GFR less than 10 3. Left leg abscess/cellulitis: Status post I&D, antibiotics as above 4. Coronary artery disease with stents: Lexiscan stress test negative Patient evaluated using audiovisual cart. Time spent 35 minutes Attestations Medical Necessity Statement*: Continue admission for assessment management of respiratory failure, JESUS on CKD, worsening anemia. 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
[2022-05-24] MEDS: FUROsemide 10 mg/mL SDV 10mL 80 MG IVP (13:26)
[2022-05-24] MEDS: cefepime 1,000 MG in sodium chloride 0.9% (plus) 50 ML 100 MG IV (13:32)
--- NOTE | 2022-05-24 14:51 | P.PN_ITS ---
Subjective Subjective: Today he is not feeling well. He cannot really define what is wrong, just not feeling the best. Generally weak. Breathing has been gradually improving. Discussed with him lack of improvement in creatinine, but he is producing urine. Discussed with him results of CT. Medications: Reviewed: Yes Vitals/I&O/Wt Last Vital Signs Temp 98.3 F 05/24/22 12:00 Pulse 71 05/24/22 13:28 Resp 16 05/24/22 13:22 BP 153/83 05/24/22 12:00 Pulse Ox 95 05/24/22 13:22 O2 Del Method 05/24/22 13:22 O2 Flow Rate 8 05/24/22 13:22 FiO2 65 05/24/22 00:00 05/23/22 05/24/22 05/24/22 22:59 06:59 14:59 Intake Total 110 / 350 240 / 590 400 / 400 Output Total 850 / 850 575 / 1425 900 / 900 Balance -740 / -500 -335 / -835 -500 / -500 Weight last 48 hrs Weight 117.163 kg Physical Exam Narrative: Up in bed. Const: COMMON NORMALS: patient oriented x3 and alert GENERAL APPEARANCE: cooperative ORIENTATION/CONSCIOUSNESS: Yes awake HENMT: COMMON NORMALS: oropharynx normal Neck/C-Spine: COMMON NORMALS: no JVD Resp: COMMON NORMALS: normal respiratory effort AUSCULTATION: rales (Faint at bases.) and rhonchi Cardio: COMMON NORMALS: no JVD, regular rhythm, S1 normal heart sound present, S2 normal heart sound present and No murmurs present (Cardio) RHYTHM: regular rhythm HEART SOUNDS: S1 normal heart sound present and S2 normal heart sound present GI: COMMON NORMALS: Normal to inspection, nondistended, normoactive bowel sounds present, Soft to palpation and non-tender PALPATION: Yes Soft to palpation Extremity: COMMON NORMALS: no joint enlargement and no pedal edema Neuro: COMMON NORMALS: patient oriented x3 and moves all extremities SENSORIUM/ORIENTATION: Yes alert Skin: NARRATIVE SKIN EXAM: Scars after fasciotomies OTHER: Resolved cellulitis. Clean appearing wound after I&D. Small abrasion/erosion posterior left leg behind the knee. Adjacent bruise, without significant swelling or fluctuance. Urinary Catheter Management: Little: Cath Placed During This Visit: yes Reason for Continuing Indwelling Catheter: Other Urinary Catheter Date of Insertion: 05/19/22 Data 05/24/22 02:39 05/24/22 02:39 A&P Assessment and plan (1) Respiratory failure with hypoxia: Continues to show respiratory improvement. Weaning down on oxygen requirement. Down to 8 L nasal cannula. Reinforced with him importance of dysphagia diet. Empiric antibiotic coverage. Aspiration precautions. Currently also diuretic challenge also in setting of JESUS on CKD. He is in negative balance. Albumin is also low. We will give a dose of 25 g 25% albumin ran slowly. Most likely secondary to acute decompensation of congestive heart failure and aspiration. MBS deferred for now but if continues to do well may be able to obtain tomorrow. Dysphagia diet with slightly thickened liquids. Aspiration precautions. Cardiac diet restriction. Fluid restriction 1 L. Patient has history of 30 to 35% with diastolic dysfunction and regional wall motion abnormality. Strict input output charting, daily weights. Maintain Little. Appreciate CT chest results. PE unlikely. Switch anticoagulation back to Eliquis 2.5 mg twice daily. Continue vancomycin and cefepime for now. Sputum culture pending. Few yeast on day 1. Respiratory viral panel negative. Incentive spirometry, flutter valve. (2) Anemia: Hemoglobin today unchanged around 7.8. No sign of retroperitoneal/psoas bleeding on CT. Follow-up Hemoccult. Continue PPI. Had some right lower quadrant/right flank pain yesterday,no acute pathology on CT. Not complaining of it today. No obvious bleeding. He is on anticoagulation. Does have underlying CKD. (3) Acute kidney injury superimposed on CKD: Appreciate nephrology assessment. Creatinine of 4 without improvement, but is producing urine. As per discussion with him hopefully may not need dialysis as dialysis will also carry risks in setting of low EF with fluid status. At risk of hemodynamic compromise. Diuretic challenge. Pending reassessment. No obstructive uropathy on kidney ultrasound. Dose of Wellbutrin, gabapentin decreased. (4) Chest pain: Seen multiple times in the past for similar complaints. So far no additional chest pain. Multiple cardiac angiogram as per the chart with patent stents. Lexiscan stress test negative for any acute ischemia and consistent with myocardial scarring. Continue with aspirin, statin, Imdur, beta-zaira. (5) Cellulitis and abscess of left leg: Post I&D. Healing well. Erythema resolved. No drainage from wound. Small abrasion/erosion posterior lower leg, without drainage. Does have a bruise in the area, no significant swelling or fluctuance. Continue wound care. MRSA PCR positive. Wound culture growing MRSA. Continue vancomycin. (6) 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 mellitus: Patient complaining of bilateral lower foot pain most likely related to neuropathy. Decreased gabapentin dose due to JESUS. Requip to 0.5 mg nightly. Decreased bupropion dose. Continue BuSpar. Celexa stopped. (7) Chronic systolic heart failure: (8) Hypertension: Goal blood pressure less than 140/90 mmHg. 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 Plan Asterixis: Noted mild degree of metabolic encephalopathy, asterixis. He is also generally weak and deconditioned. Fall precautions. Up only with assistance. Check orthostatics. Pain in feet when standing: Dry cracked skin. Requested emollient. Full code. Protonix for PUD prophylaxis Eliquis is suffice DVT prophylaxis Discharge planning: SNF for further rehabilitation as his is not able to take care of him at his home anymore. Attestations Medical Necessity Statement*: Continue admission for chest treatment of respiratory failure, aspiration pneumonia, JESUS on CKD. 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
[2022-05-24] MEDS: albumin 25 G/100 ML BAG 30 G IV (15:56)
[2022-05-24] MEDS: HYDROcodone-acetaminophen 5-325 mg Tablet 1 TAB PO (15:56)
[2022-05-24 17:07] LABS: Glucose Point of Care 222 mg/dL (70-110)
[2022-05-24] MEDS: acetaminophen 325 mg Tablet 650 MG PO (19:57)
[2022-05-24] MEDS: ropinirole 0.25 mg Tablet 0.5 MG PO (20:00)
[2022-05-24] MEDS: insulin glargine 100 units/1 mL 30 UNIT SUBCUT (20:01)
[2022-05-24] MEDS: vancomycin 500 MG in sodium chloride 0.9% (plus) 100 ML 200 MG IV (20:16)
[2022-05-24] MEDS: budesonide 0.5 mg/2 mL Neb INHALATION (20:39)
[2022-05-24] MEDS: insulin lispro 100 unit/1 mL SUBCUT (20:51)
[2022-05-24 20:56] LABS: Glucose Point of Care 279 mg/dL (70-110)
[2022-05-25] VITALS (12 sets, daily range): BP systolic 144–160; BP diastolic 73–81; PULSE 65–99; RESP 16–21; TEMP 36.4–37.1; O2SAT 90–98
[2022-05-25] MEDS: pantoprazole 40 mg SDV IVP (00:17)
[2022-05-25 05:20] LABS: Basophils # 0.1 10^3/uL (0.0-0.1); Basophils % 0.7 %; Eosinophils # 0.5 10^3/uL (0.0-0.8); Eosinophils % 4.2 %; Hematocrit 22.5 % (42.0-52.0); Hemoglobin 7.4 g/dL (11.7-16.6); Lymphocytes # 1.3 10^3/uL (0.8-4.8); Lymphocytes % 11.1 %; Mean Corpuscular HGB Conc 32.9 g/dL (30.0-36.0); Mean Corpuscular Hemoglobin 30.2 pg (28.0-34.0); Mean Corpuscular Volume 91.8 fl (80-94); Mean Platelet Volume 9.7 fL (7.4-10.4); Monocytes # 0.9 10^3/uL (0.2-0.9); Monocytes % 7.8 %; Neutrophils # 8.29 10^3/uL (1.8-7.7); Neutrophils % 69.4 %; Nucleated Red Blood Cells % 0 %; Platelet Count 461 10^3/cmm (130-400); Red Blood Count 2.45 10^6/uL (4.1-5.3); Red Cell Distribution Width 15.6 % (12.1-15.1); White Blood Count 11.9 10^3/uL (4.0-10.0)
[2022-05-25] MEDS: atorvastatin 40 mg Tablet PO (05:35)
[2022-05-25] MEDS: metoprolol tartrate 50 mg Tablet 25 MG PO ×2 (05:35→17:15)
[2022-05-25] MEDS: aspirin 81 mg EC Tablet PO (05:35)
[2022-05-25] MEDS: levothyroxine 88 mcg Tablet PO (05:36)
[2022-05-25] MEDS: buPROPion XL (24 HR) 300 mg Tablet 150 MG PO (05:36)
[2022-05-25 05:38] LABS: Anion Gap 15.3 (5-19); Blood Urea Nitrogen 77 mg/dL (6-20); Calcium 8.4 mg/dL (8.5-10.5); Carbon Dioxide 26 mmol/L (22-29); Chloride 99 mmol/L (98-107); Glomerular Filtration Rate 11.6 mL/min (90-130); Glucose 192 mg/dL (65-115); Osmolality Calculated 312 mOsm/kg (285-295); Potassium 3.3 mmol/L (3.5-5.1); Sodium 137 mmol/L (136-145)
[2022-05-25 06:04] LABS: Slide Review Slide Review Perform
[2022-05-25 06:37] LABS: Glucose Point of Care 218 mg/dL (70-110)
--- NOTE | 2022-05-25 08:11 | PM.PN ---
Subjective Subjective: O2 down to 6 L Medications: Reviewed: Yes Vitals/I&O/Wt Last Vital Signs Temp 97.5 F L 05/25/22 04:03 Pulse 69 05/25/22 05:53 Resp 21 H 05/25/22 04:03 BP 160/80 05/25/22 04:03 Pulse Ox 93 05/25/22 04:03 O2 Del Method 05/25/22 04:03 O2 Flow Rate 6 05/25/22 02:00 FiO2 65 05/24/22 00:00 05/24/22 05/25/22 05/25/22 22:59 06:59 14:59 Intake Total 360 / 810 200 / 1010 Output Total 750 / 1650 600 / 2250 Balance -390 / -840 -400 / -1240 Weight last 48 hrs Weight 112.548 kg Weight 117.163 kg Physical Exam Narrative: patient is awake alert, no acute distress HEENT: PERRLA S1-S2 regular rate and rhythm per report Clear to auscultation per report Abdomen soft and nontender per report No pedal edema Urinary Catheter Management: Little: Cath Placed During This Visit: yes Reason for Continuing Indwelling Catheter: Acute Urinary Retention or Obstruction Urinary Catheter Date of Insertion: 05/19/22 Data 05/25/22 05:11 05/25/22 05:11 Micro: Microbiology 05/21/22 14:28 Gram Stain - Final Sputum - Endotracheal Tube Aspirate Sputum Culture - Final Lucy albicans A&P Assessment and plan (1) Acute kidney injury superimposed on CKD: Plan 1. Acute on chronic kidney disease: Creatinine baseline is in the 2 range currently worsened to 5.5 likely from possible ATN due to infection/ sepsis and CRS. -No hypotension, no recent IV contrast exposure. No obstruction on renal ultrasound. -Patient nonoliguric, continue to closely monitor for now. -ordered 80 mg IV lasix x q 12 hours - If no improvement in sob and O2 requirement , will plan on HD inititation- o2down to 6 L and Cr stable 2. Acute on chronic respiratory failure: Multifactorial secondary to pneumonia and CHF. Noted switch of antibiotics from Vanco Zosyn to cefepime. Dose meds per GFR less than 10 3. Left leg abscess/cellulitis: Status post I&D, antibiotics as above 4. Coronary artery disease with stents: Lexiscan stress test negative Patient evaluated using audiovisual cart. Time spent 35 minutes Attestations Medical Necessity Statement*: Continue admission for chest treatment of respiratory failure, aspiration pneumonia, JESUS on CKD. 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
[2022-05-25] MEDS: ipratropium 0.5 mg/2.5 mL Neb INHALATION ×3 (08:12→19:53)
[2022-05-25] MEDS: levalbuterol 0.63 mg/3 mL Neb INHALATION ×3 (08:12→19:53)
[2022-05-25] MEDS: budesonide 0.5 mg/2 mL Neb INHALATION ×2 (08:13→19:53)
[2022-05-25] MEDS: isosorbide mononitrate ER 30 mg Tablet 15 MG PO ×2 (09:36→17:11)
[2022-05-25] MEDS: ranolazine (12HR) 500 mg Tablet PO ×2 (09:37→17:12)
[2022-05-25] MEDS: BuSPIRONE 10 mg Tablet 5 MG PO ×3 (09:37→20:46)
[2022-05-25] MEDS: apixaban 5 mg Tablet 2.5 MG PO ×2 (09:38→20:45)
[2022-05-25] MEDS: gabapentin 100 mg Capsule PO ×2 (09:38→17:12)
[2022-05-25] MEDS: FUROsemide 10 mg/mL SDV 10mL 80 MG IVP ×2 (09:39→20:53)
[2022-05-25 11:11] LABS: Glucose Point of Care 231 mg/dL (70-110)
--- NOTE | 2022-05-25 12:04 | FL_ITS ---
WS: [id number] Modified barium swallow, 05/25/2022 Clinical Data: Oropharyngeal dysphagia Comparison: None. Fluoroscopy time: 1min [id number] # of spot films: 1 Findings: The patient propelled the barium from the oropharynx into the hypopharynx. There was slight premature spillage but no accumulation of the barium. There is no penetration or aspiration. The patient showe d normal transit through the hypopharynx. The barium tablet passed from the oropharynx into the hypop harynx and into the distal esophagus. With the aid of minimal liquid the barium tablet did pass into the stomach FL/FL barium swallow modifd [id number] Impression: Negative modified barium swallow with minimal premature spillage from the oral pharynx.
[2022-05-25] MEDS: insulin lispro 100 unit/1 mL SUBCUT ×3 (12:31→20:54)
--- NOTE | 2022-05-25 13:40 | PC.SOCIAL ---
IMM Updated Updated pt on IMM. No questions voiced. Provided pt a copy. Initialed, dated, & timed copy in chart.
[2022-05-25 17:00] LABS: Glucose Point of Care 169 mg/dL (70-110)
[2022-05-25] MEDS: cefepime 1,000 MG in sodium chloride 0.9% (plus) 50 ML 100 MG IV (17:27)
[2022-05-25] MEDS: acetaminophen 325 mg Tablet 650 MG PO (18:46)
[2022-05-25 20:03] LABS: Glucose Point of Care 212 mg/dL (70-110)
--- NOTE | 2022-05-25 20:27 | PM.PN ---
Subjective Subjective: Today he reports he is feeling better. He asks about his diet being liberalized from the current dysphagia restriction. Discussed with him regarding the reasoning behind his dysphagia diet, risk of aspiration. Discussed also modified barium swallow test which she is going to undergo today to see regarding safest least restrictive diet consistency. Medications: Reviewed: Yes Vitals/I&O/Wt Last Vital Signs Temp 98.4 F 05/25/22 20:00 Pulse 76 05/25/22 20:00 Resp 17 05/25/22 20:00 BP 148/79 05/25/22 20:00 Pulse Ox 95 05/25/22 20:00 O2 Del Method 05/25/22 19:54 O2 Flow Rate 6 05/25/22 19:54 FiO2 65 05/24/22 00:00 05/25/22 05/25/22 05/25/22 06:59 14:59 22:59 Intake Total 200 / 1010 290 / 290 Output Total 600 / 2250 1000 / 1000 Balance -400 / -1240 -710 / -710 Weight last 48 hrs Weight 112.548 kg Weight 117.163 kg Physical Exam Narrative: Up in bed. Const: COMMON NORMALS: patient oriented x3 and alert GENERAL APPEARANCE: cooperative ORIENTATION/CONSCIOUSNESS: Yes awake HENMT: COMMON NORMALS: oropharynx normal Neck/C-Spine: COMMON NORMALS: no JVD Resp: COMMON NORMALS: normal respiratory effort AUSCULTATION: rales (Faint at bases.) and rhonchi Cardio: COMMON NORMALS: no JVD, regular rhythm, S1 normal heart sound present, S2 normal heart sound present and No murmurs present (Cardio) RHYTHM: regular rhythm HEART SOUNDS: S1 normal heart sound present and S2 normal heart sound present GI: COMMON NORMALS: Normal to inspection, nondistended, normoactive bowel sounds present, Soft to palpation and non-tender PALPATION: Yes Soft to palpation Extremity: COMMON NORMALS: no joint enlargement and no pedal edema Neuro: COMMON NORMALS: patient oriented x3 and moves all extremities SENSORIUM/ORIENTATION: Yes alert Skin: NARRATIVE SKIN EXAM: Scars after fasciotomies OTHER: Resolved cellulitis. Dressing over LLE Urinary Catheter Management: Little: Cath Placed During This Visit: yes Reason for Continuing Indwelling Catheter: Other Urinary Catheter Date of Insertion: 05/19/22 Data 05/25/22 05:11 05/25/22 05:11 Micro: Microbiology 05/20/22 19:04 Blood Culture - Final Blood NO GROWTH AFTER 5 DAYS 05/20/22 18:57 Blood Culture - Final Blood NO GROWTH AFTER 5 DAYS 05/21/22 14:28 Gram Stain - Final Sputum - Endotracheal Tube Aspirate Sputum Culture - Final Lucy albicans A&P Assessment and plan (1) Respiratory failure with hypoxia: Today is feeling better. Further improvement in oxygenation down to 6 L nasal cannula. Doing well enough to proceed with modified barium swallow. Speech therapy recommendations appreciated. Diet advanced to soft easy chew, thin liquids with recommendation for chin tuck. Empiric antibiotic coverage. Aspiration precautions. Currently continues with diuretic challenge also in setting of JESUS on CKD. He is in negative balance. Repeat albumin. Most likely secondary to acute decompensation of congestive heart failure and aspiration pneumonia. Cardiac diet restriction. Fluid restriction 1 L. Patient has history of 30 to 35% with diastolic dysfunction and regional wall motion abnormality. Strict input output charting, daily weights. Maintain Little. Appreciate CT chest results. PE unlikely. Switch anticoagulation back to Eliquis 2.5 mg twice daily. Continue vancomycin and cefepime for now. Sputum culture pending. Moderate Lucy albicans in sputum, however, continues to improve so doubt pathogenic. Respiratory viral panel negative. Incentive spirometry, flutter valve. (2) Anemia: Hemoglobin hovering around 7.5. No sign of retroperitoneal/psoas bleeding on CT. Follow-up Hemoccult. Continue PPI. Had some right lower quadrant/right flank pain yesterday,no acute pathology on CT. Not complaining of it today. No obvious bleeding. He is on anticoagulation. Does have underlying CKD. (3) Acute kidney injury superimposed on CKD: Appreciate nephrology assessment. Creatinine of 4 without improvement, but is producing urine. As per discussion with him hopefully may not need dialysis as dialysis will also carry risks in setting of low EF with fluid status. At risk of hemodynamic compromise. Diuretic challenge. Pending reassessment. No obstructive uropathy on kidney ultrasound. Dose of Wellbutrin, gabapentin decreased. (4) Chest pain: Seen multiple times in the past for similar complaints. So far no additional chest pain. Multiple cardiac angiogram as per the chart with patent stents. Lexiscan stress test negative for any acute ischemia and consistent with myocardial scarring. Continue with aspirin, statin, Imdur, beta-zaira. (5) Cellulitis and abscess of left leg: Post I&D. Healing well. Erythema resolved. No drainage from wound. Small abrasion/erosion posterior lower leg, without drainage. Does have a bruise in the area, no significant swelling or fluctuance. Continue wound care. MRSA PCR positive. Wound culture growing MRSA. Continue vancomycin. (6) 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 mellitus: Patient complaining of bilateral lower foot pain most likely related to neuropathy. Decreased gabapentin dose due to JESUS. Requip to 0.5 mg nightly. Decreased bupropion dose. Continue BuSpar. Celexa stopped. (7) Chronic systolic heart failure: (8) Hypertension: Goal blood pressure less than 140/90 mmHg. 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 Plan Asterixis: Noted mild degree of metabolic encephalopathy, asterixis. He is also generally weak and deconditioned. Fall precautions. Up only with assistance. Check orthostatics. Pain in feet when standing: Dry cracked skin. Requested emollient. Full code. Protonix for PUD prophylaxis Eliquis is suffice DVT prophylaxis Discharge planning: SNF for further rehabilitation as his is not able to take care of him at his home anymore. Attestations Medical Necessity Statement*: Continue admission for assessment management of respiratory failure, aspiration pneumonia, acute CHF, JESUS on CKD. Coding Level of Care Code Acute Information Technology Associate for [facility] Diagnoses Respiratory failure with hypoxia J96.91 Anemia D64.9 Acute kidney injury superimposed on CKD N17.9; N18.9 Chest pain R07.9 Cellulitis and abscess of left leg L03.116; L02.416 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 mellitus E11.42 Chronic systolic heart failure I50.22 Hypertension I10 CRF (chronic renal failure) N18.9 Chronic anticoagulation Z79.01
[2022-05-25] MEDS: trazodone 100 mg Tablet 400 MG PO (20:45)
[2022-05-25] MEDS: HYDROcodone-acetaminophen 5-325 mg Tablet 1 TAB PO (20:46)
[2022-05-25] MEDS: ropinirole 0.25 mg Tablet 0.5 MG PO (20:46)
[2022-05-25] MEDS: insulin glargine 100 units/1 mL 30 UNIT SUBCUT (20:54)
[2022-05-26] VITALS (12 sets, daily range): BP systolic 132–172; BP diastolic 56–79; PULSE 58–84; RESP 16–20; TEMP 36.4–37.2; O2SAT 91–98
[2022-05-26] MEDS: pantoprazole 40 mg SDV IVP ×2 (00:36→23:26)
[2022-05-26] MEDS: levalbuterol 0.63 mg/3 mL Neb INHALATION ×4 (01:43→20:54)
[2022-05-26] MEDS: ipratropium 0.5 mg/2.5 mL Neb INHALATION ×4 (01:43→20:54)
[2022-05-26] MEDS: levothyroxine 88 mcg Tablet PO (05:54)
[2022-05-26] MEDS: aspirin 81 mg EC Tablet PO (05:54)
[2022-05-26] MEDS: atorvastatin 40 mg Tablet PO (05:54)
[2022-05-26] MEDS: buPROPion XL (24 HR) 300 mg Tablet 150 MG PO (05:55)
[2022-05-26] MEDS: metoprolol tartrate 50 mg Tablet 25 MG PO ×2 (05:55→17:12)
[2022-05-26 06:29] LABS: Basophils # 0.1 10^3/uL (0.0-0.1); Basophils % 0.6 %; Eosinophils # 0.5 10^3/uL (0.0-0.8); Eosinophils % 4.3 %; Hematocrit 22.1 % (42.0-52.0); Hemoglobin 7.2 g/dL (11.7-16.6); Lymphocytes # 1.7 10^3/uL (0.8-4.8); Lymphocytes % 14.8 %; Mean Corpuscular HGB Conc 32.6 g/dL (30.0-36.0); Mean Corpuscular Hemoglobin 30.1 pg (28.0-34.0); Mean Corpuscular Volume 92.5 fl (80-94); Mean Platelet Volume 9.6 fL (7.4-10.4); Monocytes # 0.9 10^3/uL (0.2-0.9); Monocytes % 8.1 %; Neutrophils # 7.01 10^3/uL (1.8-7.7); Neutrophils % 62.3 %; Nucleated Red Blood Cells % 0 %; Platelet Count 497 10^3/cmm (130-400); Red Blood Count 2.39 10^6/uL (4.1-5.3); White Blood Count 11.3 10^3/uL (4.0-10.0)
[2022-05-26 06:30] LABS: Glucose Point of Care 234 mg/dL (70-110)
[2022-05-26 06:46] LABS: Anion Gap 17.1 (5-19); Blood Urea Nitrogen 71 mg/dL (6-20); Calcium 8.5 mg/dL (8.5-10.5); Carbon Dioxide 27 mmol/L (22-29); Chloride 94 mmol/L (98-107); Glomerular Filtration Rate 12.4 mL/min (90-130); Glucose 204 mg/dL (65-115); Osmolality Calculated 307 mOsm/kg (285-295); Potassium 3.1 mmol/L (3.5-5.1); Sodium 135 mmol/L (136-145)
[2022-05-26 07:20] LABS: Slide Review Slide Review Perform
[2022-05-26] MEDS: isosorbide mononitrate ER 30 mg Tablet 15 MG PO ×2 (07:53→17:10)
[2022-05-26] MEDS: BuSPIRONE 10 mg Tablet 5 MG PO ×3 (07:54→21:11)
[2022-05-26] MEDS: gabapentin 100 mg Capsule PO ×2 (07:54→17:13)
[2022-05-26] MEDS: apixaban 5 mg Tablet 2.5 MG PO ×2 (07:55→21:11)
[2022-05-26] MEDS: insulin lispro 100 unit/1 mL SUBCUT ×4 (07:56→21:10)
[2022-05-26] MEDS: FUROsemide 10 mg/mL SDV 10mL 80 MG IVP ×2 (08:51→20:46)
[2022-05-26] MEDS: potassium chloride ER 20 mEq Tablet 40 MEQ PO (08:51)
[2022-05-26] MEDS: ranolazine (12HR) 500 mg Tablet PO ×2 (08:51→17:12)
[2022-05-26] MEDS: budesonide 0.5 mg/2 mL Neb INHALATION ×2 (08:54→20:54)
--- NOTE | 2022-05-26 10:42 | PM.PN ---
Subjective Subjective: no new complaints OOB too chair; denies dyspnea Medications: Medication Review Details: on IV lasix Vitals/I&O/Wt Last Vital Signs Temp 97.5 F L 05/26/22 07:49 Pulse 64 05/26/22 08:00 Resp 16 05/26/22 08:00 BP 152/70 05/26/22 07:49 Pulse Ox 93 05/26/22 08:00 O2 Del Method 05/26/22 08:00 O2 Flow Rate 5 05/26/22 08:00 FiO2 65 05/24/22 00:00 05/25/22 05/26/22 05/26/22 22:59 06:59 14:59 Intake Total 630 / 630 480 / 1110 Output Total 1000 / 1000 1200 / 2200 600 / 600 Balance -370 / -370 -720 / -1090 -600 / -600 Weight last 48 hrs Weight 111.901 kg Weight 112.548 kg Physical Exam Const: COMMON NORMALS: no acute distress and alert Extremity: NARRATIVE EXTREMITY EXAM: 1+ edema Neuro: SENSORIUM/ORIENTATION: Yes alert Urinary Catheter Management: Brown: Cath Placed During This Visit: yes Reason for Continuing Indwelling Catheter: Other Urinary Catheter Date of Insertion: 05/19/22 Data 05/26/22 06:15 05/26/22 06:15 Micro: Microbiology 05/20/22 19:04 Blood Culture - Final Blood NO GROWTH AFTER 5 DAYS 05/20/22 18:57 Blood Culture - Final Blood NO GROWTH AFTER [address] Abd/Pel: Radiologist's impression: no hydro Other data: Seen via telemedicine with assistance of RN at bedside A&P Assessment and plan (1) Stage 5 chronic kidney disease: Plan 1. Stage 4/5 chronic kidney disease due to diabetic nephropathy, hypertension. Had peritoneal dialysis catheter placed by Dr Lopez one year ago. Was seeing Dr Weiss and is prepared to start peritoneal dialysis. Will need catheter surgically removed from SC space. Reports he had transplant evaluation and is not a candidate for kidney transplant due to heart disease. 2. Hypertension, reasonably well-controlled 3. Anemia 4. Ischemic cardiomyopathy, volume overload, diuresing 5. Hypokalemia, replaced po this AM Recommend: Continue IV lasix today, then change to oral diuretic. Was on 2 mg bumex BID as outpatient. Can increase to 3 mg BID, resume metaolazone 5 mg QOD. Remove brown/voiding trial tomorrow. Check iron studies, SQ epogen. Check phosphorus. Check vanco level. Outpatient nephrology follow-up [facility] Attestations Medical Necessity Statement*: see above Time Spent in Patient Care: 16 - 35 minutes Coding Level of Care Code Acute Nuclear Medicine Supervisor for [facility] Exam Problem Focused Diagnoses Stage 5 chronic kidney disease N18.5
[2022-05-26 11:52] LABS: Glucose Point of Care 259 mg/dL (70-110)
[2022-05-26] MEDS: epoetin alfa 1000 Unit/0.05 mL (non-esrd) 20000 UNIT SUBCUT (12:51)
[2022-05-26] MEDS: metOLazone 5 MG Tablet PO (12:51)
[2022-05-26] MEDS: cefepime 1,000 MG in sodium chloride 0.9% (plus) 50 ML 100 MG IV (15:01)
[2022-05-26 17:07] LABS: Glucose Point of Care 235 mg/dL (70-110)
[2022-05-26] MEDS: acetaminophen 325 mg Tablet 650 MG PO (17:52)
[2022-05-26] MEDS: vancomycin 500 MG in sodium chloride 0.9% (plus) 100 ML 200 MG IV (17:52)
--- NOTE | 2022-05-26 20:11 | PM.PN ---
Subjective Subjective: She is overall doing slightly better today. He is very happy with upgrading his diet. Breathing gradually continue to improve. So far no further aspiration. He is allergic to tuck his chin with the liquids. Medications: Reviewed: Yes Vitals/I&O/Wt Last Vital Signs Temp 97.8 F 05/26/22 15:57 Pulse 65 05/26/22 15:57 Resp 18 05/26/22 15:57 BP 152/66 05/26/22 15:57 Pulse Ox 91 05/26/22 15:57 O2 Del Method 05/26/22 13:32 O2 Flow Rate 5 05/26/22 13:32 FiO2 65 05/24/22 00:00 05/26/22 05/26/22 05/26/22 06:59 14:59 22:59 Intake Total 480 / 1110 430 / 430 Output Total 1200 / 2200 600 / 600 Balance -720 / -1090 -600 / -600 430 / -170 Weight last 48 hrs Weight 111.901 kg Weight 112.548 kg Physical Exam Narrative: Up in bed. Const: COMMON NORMALS: patient oriented x3 and alert GENERAL APPEARANCE: cooperative ORIENTATION/CONSCIOUSNESS: Yes awake HENMT: COMMON NORMALS: oropharynx normal Neck/C-Spine: COMMON NORMALS: no JVD Resp: COMMON NORMALS: normal respiratory effort AUSCULTATION: rales (Faint at bases.) and rhonchi Cardio: COMMON NORMALS: no JVD, regular rhythm, S1 normal heart sound present, S2 normal heart sound present and No murmurs present (Cardio) RHYTHM: regular rhythm HEART SOUNDS: S1 normal heart sound present and S2 normal heart sound present GI: COMMON NORMALS: Normal to inspection, nondistended, normoactive bowel sounds present, Soft to palpation and non-tender PALPATION: Yes Soft to palpation Extremity: COMMON NORMALS: no joint enlargement and no pedal edema Neuro: COMMON NORMALS: patient oriented x3 and moves all extremities SENSORIUM/ORIENTATION: Yes alert Skin: NARRATIVE SKIN EXAM: Scars after fasciotomies OTHER: Resolved cellulitis. Dressing over LLE Urinary Catheter Management: Little: Cath Placed During This Visit: yes Reason for Continuing Indwelling Catheter: Accurate Measurement of Urinary Output in Critically Ill Patients Urinary Catheter Date of Insertion: 05/19/22 Data 05/26/22 06:15 05/26/22 06:15 Micro: Microbiology 05/20/22 19:04 Blood Culture - Final Blood NO GROWTH AFTER 5 DAYS 05/20/22 18:57 Blood Culture - Final Blood NO GROWTH AFTER 5 DAYS A&P Assessment and plan (1) Respiratory failure with hypoxia: Oxygenation continues to improve. Leukocytosis decreasing. He is afebrile. We will check procalcitonin. De-escalate antibiotics. Appears to be also eating because of euvolemia. Follow-up chest x-ray. Diet advanced to soft easy chew, thin liquids with recommendation for chin tuck. Empiric antibiotic coverage. Aspiration precautions. Currently continues with diuretic challenge also in setting of JESUS on CKD. He is in negative balance. Repeat albumin. Most likely secondary to acute decompensation of congestive heart failure and aspiration pneumonia. Cardiac diet restriction. Fluid restriction 1 L. Patient has history of 30 to 35% with diastolic dysfunction and regional wall motion abnormality. Strict input output charting, daily weights. Maintain Little. Appreciate CT chest results. PE unlikely. Switch anticoagulation back to Eliquis 2.5 mg twice daily. Continue vancomycin and cefepime for now. Sputum culture pending. Moderate Lucy albicans in sputum, however, continues to improve so doubt pathogenic. Respiratory viral panel negative. Incentive spirometry, flutter valve. (2) Anemia: Hemoglobin hovering around 7.5. No sign of retroperitoneal/psoas bleeding on CT. Follow-up Hemoccult. Continue PPI. Had some right lower quadrant/right flank pain yesterday,no acute pathology on CT. Not complaining of it today. No obvious bleeding. He is on anticoagulation. Does have underlying CKD. (3) Acute kidney injury superimposed on CKD: Appreciate nephrology assessment. Creatinine of 4 without improvement, but is producing urine. As per discussion with him hopefully may not need dialysis as dialysis will also carry risks in setting of low EF with fluid status. At risk of hemodynamic compromise. Diuretic challenge. Pending reassessment. No obstructive uropathy on kidney ultrasound. Dose of Wellbutrin, gabapentin decreased. (4) Chest pain: Seen multiple times in the past for similar complaints. So far no additional chest pain. Multiple cardiac angiograms as per the chart with patent stents. Lexiscan stress test negative for any acute ischemia and consistent with myocardial scarring. Continue with aspirin, statin, Imdur, beta-zaiar. (5) Cellulitis and abscess of left leg: Post I&D. Healing well. Erythema resolved. No drainage from wound. Small abrasion/erosion posterior lower leg, without drainage. Does have a bruise in the area, no significant swelling or fluctuance. Continue wound care. MRSA PCR positive. Wound culture growing MRSA. Stop vancomycin. (6) 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 mellitus: Patient complaining of bilateral lower foot pain most likely related to neuropathy. Improved. Decreased gabapentin dose due to JESUS. Requip to 0.5 mg nightly. Decreased bupropion dose. Continue BuSpar. Celexa stopped. (7) Chronic systolic heart failure: (8) Hypertension: Goal blood pressure less than 140/90 mmHg. 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 Plan Asterixis: Noted mild degree of metabolic encephalopathy, asterixis. He is also generally weak and deconditioned. Fall precautions. Up only with assistance. Pain in feet when standing: Dry cracked skin. emollient. Full code. Protonix for PUD prophylaxis Eliquis is suffice DVT prophylaxis Discharge planning: SNF for further rehabilitation as his is not able to take care of him at his home anymore. Attestations Medical Necessity Statement*: Continue admission for assessment management of respiratory failure, pneumonia, CHF exacerbation, JESUS on CKD, post discharge planning. Coding Level of Care Code Acute Steward/Stewardess Third Class for [facility] Diagnoses Respiratory failure with hypoxia J96.91 Anemia D64.9 Acute kidney injury superimposed on CKD N17.9; N18.9 Chest pain R07.9 Cellulitis and abscess of left leg L03.116; L02.416 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 mellitus E11.42 Chronic systolic heart failure I50.22 Hypertension I10 CRF (chronic renal failure) N18.9 Chronic anticoagulation Z79.01
[2022-05-26 20:49] LABS: Glucose Point of Care 228 mg/dL (70-110)
[2022-05-26] MEDS: trazodone 100 mg Tablet 400 MG PO (21:10)
[2022-05-26] MEDS: ropinirole 0.25 mg Tablet 0.5 MG PO (21:10)
[2022-05-26] MEDS: insulin glargine 100 units/1 mL 30 UNIT SUBCUT (21:10)
[2022-05-26] MEDS: HYDROcodone-acetaminophen 5-325 mg Tablet 1 TAB PO (21:11)
--- NOTE | 2022-05-26 23:23 | PC.NURSE ---
At approximately 2300 this nurse was called to patient room for oxygen saturation of 82% This nurse increased oxygen to 6L from 4L via high flow nasal cannula. The patient's o2 increased to 84%. Then this nurse increased oxygen to 10L high flow. The oxygen percentage maintained 84-86% with this increase, RT called and informed as well as the hospitalist. Telephone orders given to place patient on bi-pap and get a stat ABG and chest x-ray. Verbal order then given to give a one time dose of Lasix 40 mg IVP. RT informed to place patient on bi-pap and to draw ABG. Orders entered. Patient informed of what changes were being made and why, states understanding. Asked that this nurse call and inform of changes.
[2022-05-26] MEDS: FUROsemide 10 mg/mL SDV 4mL 40 MG IVP (23:26)
[2022-05-27] VITALS (12 sets, daily range): BP systolic 125–164; BP diastolic 64–76; PULSE 52–64; RESP 12–18; TEMP 36.3–36.7; O2SAT 92–97
--- NOTE | 2022-05-27 00:19 | XRR_ITS ---
PROCEDURE INFORMATION: Exam: XR Chest Exam date and time: 05/27/2022 12:38 AM Age: 52 years old Clinical indication: Shortness of breath; Additional info: Hypoxia TECHNIQUE: Imaging protocol: Radiologic exam of the chest. Views: 1 view. COMPARISON: CR (CHEST, ) 05/23/2022 6:48 AM FINDINGS: Tubes, catheters and devices: MediPort catheter is placed via the left subclavian vein with its tip at the level of the superior vena cava. EKG leads overlie the chest. Lungs: There is mild prominence and indistinctness of the pulmonary vasculature, mild peribronchial cuffing and hazy in strandy opacities present in the lower hemithoraces, findings that suggest pulmonary edema. Pleural spaces: Unremarkable. No pleural effusion. No pneumothorax. Heart/Mediastinum: Unremarkable. No cardiomegaly. Bones/joints: Unremarkable. XR/XR chest 1V portable [id number] IMPRESSION: Mildly prominent and indistinct pulmonary vasculature, peribronchial cuffing and hazy and strandy opacities in the lower hemithoraces suggests pulmonary edema.
[2022-05-27] MEDS: ipratropium 0.5 mg/2.5 mL Neb INHALATION ×4 (02:45→22:18)
[2022-05-27] MEDS: levalbuterol 0.63 mg/3 mL Neb INHALATION ×4 (02:45→22:18)
[2022-05-27 04:01] LABS: Mean Corpuscular HGB Conc 33.3 g/dL (30.0-36.0); Mean Corpuscular Hemoglobin 30.7 pg (28.0-34.0); Mean Corpuscular Volume 92.1 fl (80-94); Mean Platelet Volume 10.3 fL (7.4-10.4); Platelet Count 503 10^3/cmm (130-400); Red Blood Count 2.28 10^6/uL (4.1-5.3); Red Cell Distribution Width 15.1 % (12.1-15.1); White Blood Count 11.5 10^3/uL (4.0-10.0)
[2022-05-27 04:24] LABS: Blood Urea Nitrogen 67 mg/dL (6-20); Carbon Dioxide 27 mmol/L (22-29); Glomerular Filtration Rate 14.9 mL/min (90-130); Glucose 121 mg/dL (65-115); Phosphorus 4.2 mg/dL (2.5-4.5)
[2022-05-27 04:26] LABS: Procalcitonin 0.93 ng/mL (0-0.5)
[2022-05-27 04:35] LABS: Potassium 3.3 mmol/L (3.5-5.1)
[2022-05-27 04:56] LABS: Ferritin 228 ng/mL (30-400); Iron 20 ug/dL (59-158)
[2022-05-27 05:02] LABS: Anion Gap 17.3 (5-19); Chloride 95 mmol/L (98-107); Osmolality Calculated 303 mOsm/kg (285-295); Sodium 136 mmol/L (136-145)
[2022-05-27 05:03] LABS: Percent Saturation 15.6 % (20-50); Total Iron Binding Capacity 128 mcg/dl; Unsaturated Iron Binding 108 ug/dL (112-347)
[2022-05-27] MEDS: buPROPion XL (24 HR) 300 mg Tablet 150 MG PO (05:28)
[2022-05-27] MEDS: levothyroxine 88 mcg Tablet PO (05:28)
[2022-05-27] MEDS: atorvastatin 40 mg Tablet PO (05:29)
[2022-05-27] MEDS: metoprolol tartrate 50 mg Tablet 25 MG PO ×2 (05:29→17:19)
[2022-05-27] MEDS: aspirin 81 mg EC Tablet PO (05:29)
--- NOTE | 2022-05-27 06:00 | XRR_ITS ---
PROCEDURE INFORMATION: Exam: XR Chest Exam date and time: 05/27/2022 9:25 AM Age: 52 years old Clinical indication: Shortness of breath; Prior surgery; Additional info: Respiratory changes TECHNIQUE: Imaging protocol: Radiologic exam of the chest. Views: 1 view. COMPARISON: CR (CHEST, ) 05/27/2022 12:38 AM FINDINGS: Tubes, catheters and devices: Unchanged left subclavian Port-A-Cath is seen with tip overlying the right atrium. Lungs: Decreased right lung volumes with increased right medial basilar airspace opacities. Decreased mild perihilar interstitial opacities and left basilar interstitial opacities. Pleural spaces: No pneumothorax. Heart/Mediastinum: The heart size is unchanged. Status post prior median sternotomy with sternal wires. There is a mildly tortuous thoracic aorta. The trachea is midline. Bones/joints: No acute osseous abnormalities seen. Soft tissues: Multiple external densities are seen overlying the chest, limiting assessment. XR/XR chest 1V portable [id number] IMPRESSION: Decreased right lung volumes with increased right medial basilar airspace opacities. Decreased mild perihilar interstitial opacities and left basilar interstitial opacities.
[2022-05-27 06:06] LABS: Absolute Eosinophils 0.4 10^3/cmm (0.0-0.7); Absolute Neutrophil 7.7 10^3/cmm (1.4-6.5); Absolute Segmented Neutrophil 7.4 10/cmm (1.6-7.1); Anisocytosis 1+; Band Neutrophils Absolute 0.3 10^3/cmm (0.0-1.2); Eosinophils 4 %; Hypochromasia 2+; Lymphocytes 16 %; Monocytes Absolute 0.6 10^3/cmm (0.1-0.6); Platelet Estimate Increased (Normal); Segmented Neutrophils 64 %; Total Cells Counted 100 (0-100)
[2022-05-27 06:07] LABS: Microcytosis 1+; Ovalocytes 1+
[2022-05-27 06:10] LABS: Glucose Point of Care 159 mg/dL (70-110)
--- NOTE | 2022-05-27 07:33 | P.PN_ITS ---
Subjective Subjective: developed respiratory distress overnight, was on BiPAP. now on NC O2. Still short of breath. + fatigue He and his are asking that for hemodialysis to be initiated because rehab is unable to perform peritoneal dialysis Vitals/I&O/Wt Last Vital Signs Temp 97.7 F 05/27/22 04:00 Pulse 54 L 05/27/22 06:00 Resp 18 05/27/22 04:00 BP 164/70 05/27/22 04:00 Pulse Ox 96 05/27/22 04:00 O2 Del Method 05/27/22 02:00 O2 Flow Rate 4 05/26/22 20:00 FiO2 60 05/27/22 04:00 05/26/22 05/27/22 05/27/22 22:59 06:59 14:59 Intake Total 550 / 550 600 / 1150 Output Total 1000 / 1600 Balance 550 / -50 -400 / -450 Weight last 48 hrs Weight 113.716 kg Weight 111.901 kg Physical Exam Const: COMMON NORMALS: no acute distress and alert Extremity: GENERAL: Yes edema Neuro: SENSORIUM/ORIENTATION: Yes alert Urinary Catheter Management: Brown: Cath Placed During This Visit: yes Reason for Continuing Indwelling Catheter: Accurate Measurement of Urinary Output in Critically Ill Patients Urinary Catheter Date of Insertion: 05/19/22 Data 05/27/22 02:55 05/27/22 02:55 Other Labs: Ca 8 (corrects to normal range for low albumin), phos 4.2, TSAT 15.6%, SF 228, vanco 18 last albumin 2.5 CXR: Radiologist's impression: Mildly prominent and indistinct pulmonary vasculature, peribronchial cuffing and hazy and strandy opacities in the lower hemithoraces suggests pulmonary edema. ? Other data: seen via telemedicine with assistance of RN at bedside A&P Assessment and plan (1) Stage 5 chronic kidney disease: Plan 1. Stage 4/5 chronic kidney disease due to diabetic nephropathy, hypertension. Had peritoneal dialysis catheter placed by Dr Lopez one year ago. Reports he had transplant evaluation and is not a candidate for kidney transplant due to heart disease. 2. Hypertension, reasonably well-controlled 3. Anemia, iron and erythropoeitin deficiency. Received SQ epogen yesterday. Beg in IV iron. I explained he may need blood transfusion - he is agreeable. 4. Ischemic cardiomyopathy, volume overload, CXR reports persistent pulmonary edema. Metolazone added yesterday. Increase furosemide to TIS. 5. Hypokalemia, replace po Recommend: I had a detailed discussion with Rei and his . I have recommended that we initiate hemodialysis via tunneled HD catheter. Discussed risks and benefits of hemodialysis. He is agreeable. He will still be able to have peritoneal dialysis once he is discharged from rehab and is trained (PD catheter needs to be exposed). Continue brown/voiding trial. Change amlodipine to ARB once HD initiated. Hold eliquis, consult surgery for tunneled HD catheter placement. Attestations Medical Necessity Statement*: see above Time Spent in Patient Care: Greater than 35 minutes Coding Level of Care Code Acute Logistics Planning Engineer for [facility] Diagnoses Stage 5 chronic kidney disease N18.5
[2022-05-27] MEDS: FUROsemide 10 mg/mL SDV 10mL 80 MG IVP ×3 (07:59→21:47)
[2022-05-27] MEDS: budesonide 0.5 mg/2 mL Neb INHALATION ×2 (08:02→22:18)
[2022-05-27] MEDS: iron sucrose 200 MG in sodium chloride 0.9% (100 ml) 100 ML 220 MG IV (08:23)
[2022-05-27] MEDS: potassium chloride ER 20 mEq Tablet 40 MEQ PO (08:23)
[2022-05-27] MEDS: gabapentin 100 mg Capsule PO ×2 (08:24→17:19)
[2022-05-27] MEDS: isosorbide mononitrate ER 30 mg Tablet 15 MG PO ×2 (08:24→17:19)
[2022-05-27] MEDS: BuSPIRONE 10 mg Tablet 5 MG PO ×3 (08:24→21:13)
[2022-05-27] MEDS: apixaban 5 mg Tablet 2.5 MG PO (08:24)
[2022-05-27] MEDS: metOLazone 5 MG Tablet PO (08:30)
[2022-05-27] MEDS: ranolazine (12HR) 500 mg Tablet PO ×2 (08:30→17:19)
--- NOTE | 2022-05-27 11:46 | PC.SOCIAL ---
IMM update IMM updated with patient. Verbalized an understanding. Copy Pg 2 provided. Initialled, dated, timed, and placed in chart.
[2022-05-27] MEDS: insulin lispro 100 unit/1 mL SUBCUT ×3 (12:25→21:34)
[2022-05-27 12:49] LABS: Glucose Point of Care 249 mg/dL (70-110)
[2022-05-27] MEDS: cefepime 1,000 MG in sodium chloride 0.9% (plus) 50 ML 100 MG IV (14:30)
[2022-05-27 16:37] LABS: Glucose Point of Care 259 mg/dL (70-110)
--- NOTE | 2022-05-27 20:23 | P.PN_ITS ---
Subjective Subjective: He had a difficult night, he got significantly more dyspneic, had to be restarted on BiPAP. Continue to require BiPAP still this morning. Later in the afternoon doing little bit better, transitioned again to nasal cannula at 5 L. Chest x-ray repeated, with interstitial changes, again possible i nterstitial edema. No chest pain. Medications: Reviewed: Yes Vitals/I&O/Wt Last Vital Signs Temp 98.0 F 05/27/22 19:35 Pulse 64 05/27/22 19:35 Resp 16 05/27/22 19:35 BP 157/76 05/27/22 19:35 Pulse Ox 95 05/27/22 19:35 O2 Del Method 05/27/22 19:35 O2 Flow Rate 5 05/27/22 19:35 FiO2 50 05/27/22 11:51 05/27/22 05/27/22 05/27/22 06:59 14:59 22:59 Intake Total 600 / 1150 350 / 350 350 / 700 Output Total 1000 / 1600 1000 / 1000 850 / 1850 Balance -400 / -450 -650 / -650 -500 / -1150 Weight last 48 hrs Weight 113.716 kg Weight 111.901 kg Physical Exam Narrative: Up in bed. accompanies him at bedside. Const: COMMON NORMALS: patient oriented x3 and alert GENERAL APPEARANCE: cooperative ORIENTATION/CONSCIOUSNESS: Yes awake HENMT: COMMON NORMALS: oropharynx normal Neck/C-Spine: COMMON NORMALS: no JVD Resp: COMMON NORMALS: normal respiratory effort AUSCULTATION: rales (Faint at bases.) and rhonchi Cardio: COMMON NORMALS: no JVD, regular rhythm, S1 normal heart sound present, S2 normal heart sound present and No murmurs present (Cardio) RHYTHM: regular rhythm HEART SOUNDS: S1 normal heart sound present and S2 normal heart sound present GI: COMMON NORMALS: Normal to inspection, nondistended, normoactive bowel sounds present, Soft to palpation and non-tender PALPATION: Yes Soft to palpation Extremity: COMMON NORMALS: no joint enlargement and no pedal edema Neuro: COMMON NORMALS: patient oriented x3 and moves all extremities SENSORIUM/ORIENTATION: Yes alert Skin: NARRATIVE SKIN EXAM: Scars after fasciotomies OTHER: Resolved cellulitis. Dressing over LLE Urinary Catheter Management: Little: Cath Placed During This Visit: yes Reason for Continuing Indwelling Catheter: Accurate Measurement of Urinary Output in Critically Ill Patients Urinary Catheter Date of Insertion: 05/19/22 Data 05/27/22 02:55 05/27/22 02:55 A&P Assessment and plan (1) Respiratory failure with hypoxia: Had a difficult night last night, and again required BiPAP after respiratory decompensation. She may have had a minor aspiration event, but is not sure. Repeat chest x-ray with interstitial findings, possible pulmonary edema. Continues to be generally weak, with asterixis. Renal function with minimal improvement, but with underlying CHF and renal compromise consideration is that he may end up needing dialysis still. Anticoagulants held to allow for dialysis catheter placement next prescription with nephrology. Reassess respiratory condition, renal function in the morning. Giurgius still needed, please reach out to his surgeon who will be coming on next week if catheter will be found required. Oxygenation continues to improve. Leukocytosis decreasing. Decompensated overnight. Procalcitonin still elevated. Continue antibiotics. Diet advanced to soft easy chew, thin liquids with recommendation for chin tuck. Empiric antibiotic coverage. Aspiration precautions. Currently continues with diuretic challenge also in setting of JESUS on CKD. Most likely secondary to acute decompensation of congestive heart failure and aspiration pneumonia. Cardiac diet restriction. Fluid restriction 1 L. Patient has history of 30 to 35% with diastolic dysfunction and regional wall motion abnormality. Strict input output charting, daily weights. Maintain Little. Appreciate CT chest results. PE unlikely. Switch anticoagulation back to Eliquis 2.5 mg twice daily. Continue vancomycin and cefepime for now. Sputum culture pending. Moderate Lucy albicans in sputum, however, continues to improve so doubt pathogenic. Respiratory viral panel negative. Incentive spirometry, flutter valve. (2) Anemia: Hemoglobin hovering around 7.5. No sign of retroperitoneal/psoas bleeding on CT. Follow-up Hemoccult. Continue PPI. Had some right lower quadrant/right flank pain yesterday,no acute pathology on CT. Not complaining of it today. No obvious bleeding. He is on anticoagulation. Does have underlying CKD. (3) Acute kidney injury superimposed on CKD: Appreciate nephrology assessment, consideration of hemodialysis. Discussed with him risk of hemodynamic changes in setting of low EF. Anticoagulant is held. Contact surgery in case dialysis catheter found to be required. At risk of hemodynamic compromise. Diuretic challenge. Pending reassessment. No obstructive uropathy on kidney ultrasound. Dose of Wellbutrin, gabapentin decreased. (4) Chest pain: Seen multiple times in the past for similar complaints. So far no additional chest pain. Multiple cardiac angiograms as per the chart with patent stents. Lexiscan stress test negative for any acute ischemia and consistent with myocardial scarring. Continue with aspirin, statin, Imdur, beta-zaira. (5) Cellulitis and abscess of left leg: Post I&D. Healing well. Erythema resolved. No drainage from wound. Small abrasion/erosion posterior lower leg, without drainage. Does have a bruise in the area, no significant swelling or fluctuance. Continue wound care. MRSA PCR positive. Wound culture growing MRSA. Stop vancomycin. (6) 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 mellitus: Patient complaining of bilateral lower foot pain most likely related to neuropathy. Improved. Decreased gabapentin dose due to JESUS. Requip to 0.5 mg nightly. Decreased bupropion dose. Continue BuSpar. Celexa stopped. (7) Chronic systolic heart failure: (8) Hypertension: Goal blood pressure less than 140/90 mmHg. 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 Plan Asterixis: Noted mild degree of metabolic encephalopathy, asterixis. He is also generally weak and deconditioned. Fall precautions. Up only with assistance. Pain in feet when standing: Dry cracked skin. emollient. Full code. Protonix for PUD prophylaxis Eliquis is suffice DVT prophylaxis Discharge planning: SNF for further rehabilitation as his is not able to take care of him at his home anymore. Attestations Medical Necessity Statement*: Admission for assessment management of respiratory failure, aspiration pneumonia, CHF, JESUS on CKD Coding Level of Care Code Acute Electronics Lead for [facility] Diagnoses Respiratory failure with hypoxia J96.91 Anemia D64.9 Acute kidney injury superimposed on CKD N17.9; N18.9 Chest pain R07.9 Cellulitis and abscess of left leg L03.116; L02.416 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 mellitus E11.42 Chronic systolic heart failure I50.22 Hypertension I10 CRF (chronic renal failure) N18.9 Chronic anticoagulation Z79.01
[2022-05-27] MEDS: trazodone 100 mg Tablet 400 MG PO (21:13)
[2022-05-27] MEDS: HYDROcodone-acetaminophen 5-325 mg Tablet 1 TAB PO (21:13)
[2022-05-27] MEDS: ropinirole 0.25 mg Tablet 0.5 MG PO (21:13)
[2022-05-27] MEDS: insulin glargine 100 units/1 mL 30 UNIT SUBCUT (21:34)
[2022-05-28] VITALS (13 sets, daily range): BP systolic 114–153; BP diastolic 57–84; PULSE 58–93; RESP 15–20; TEMP 36.4–36.8; O2SAT 60–98
[2022-05-28] MEDS: pantoprazole 40 mg SDV IVP (00:09)
[2022-05-28] MEDS: FUROsemide 10 mg/mL SDV 10mL 80 MG IVP ×2 (05:04→15:05)
[2022-05-28 05:44] LABS: Basophils # 0.1 10^3/uL (0.0-0.1); Basophils % 0.8 %; Eosinophils # 0.5 10^3/uL (0.0-0.8); Eosinophils % 3.9 %; Hematocrit 23.7 % (42.0-52.0); Lymphocytes # 1.9 10^3/uL (0.8-4.8); Lymphocytes % 15.2 %; Mean Corpuscular HGB Conc 33.8 g/dL (30.0-36.0); Mean Corpuscular Hemoglobin 29.9 pg (28.0-34.0); Mean Corpuscular Volume 88.4 fl (80-94); Mean Platelet Volume 9.5 fL (7.4-10.4); Monocytes % 7.6 %; Neutrophils # 7.98 10^3/uL (1.8-7.7); Nucleated Red Blood Cells % 0.2 %; Platelet Count 516 10^3/cmm (130-400); Red Blood Count 2.68 10^6/uL (4.1-5.3); Red Cell Distribution Width 14.6 % (12.1-15.1); White Blood Count 12.7 10^3/uL (4.0-10.0)
[2022-05-28] MEDS: buPROPion XL (24 HR) 300 mg Tablet 150 MG PO (05:50)
[2022-05-28] MEDS: atorvastatin 40 mg Tablet PO (05:50)
[2022-05-28] MEDS: levothyroxine 88 mcg Tablet PO (05:50)
[2022-05-28] MEDS: aspirin 81 mg EC Tablet PO (05:50)
[2022-05-28] MEDS: metoprolol tartrate 50 mg Tablet 25 MG PO ×2 (05:50→17:51)
[2022-05-28 06:12] LABS: Anion Gap 15.6 (5-19); Blood Urea Nitrogen 71 mg/dL (6-20); Calcium 9.2 mg/dL (8.5-10.5); Carbon Dioxide 31 mmol/L (22-29); Chloride 95 mmol/L (98-107); Glomerular Filtration Rate 13.7 mL/min (90-130); Glucose 122 mg/dL (65-115); Osmolality Calculated 308 mOsm/kg (285-295); Potassium 3.6 mmol/L (3.5-5.1); Sodium 138 mmol/L (136-145)
[2022-05-28 06:35] LABS: Glucose Point of Care 256 mg/dL (70-110)
[2022-05-28 06:46] LABS: Glucose Point of Care 131 mg/dL (70-110)
--- NOTE | 2022-05-28 08:02 | PM.PN ---
Subjective Subjective: sleepy, sob, asterexis, weaj Medications: Reviewed: Yes Medication Review Details: Current Medications Acetaminophen (Acetaminophen 325 Mg Tablet) 650 mg PO Q6H PRN PRN Reason: Mild/Mod Pain Or Temp >/= 101 Last Admin: 05/26/22 17:52 Dose: 650 mg Hydrocodone Bitart/Acetaminophen (Hydrocodone-Acetaminophen 5-325 Mg Tablet) 1 tab PO Q8H PRN PRN Reason: MODERATE PAIN Last Admin: 05/27/22 21:13 Dose: 1 tab Amlodipine Besylate (Amlodipine 5 Mg Tablet) 5 mg PO DAILY [facility] Last Admin: 05/20/22 09:24 Dose: 5 mg Apixaban (Apixaban 5 Mg Tablet) 2.5 mg PO BID@0900,2100 [facility] Last Admin: 05/27/22 08:24 Dose: 2.5 mg Aspirin (Aspirin 81 Mg Ec Tablet) 81 mg PO DAILY@0600 [facility] Last Admin: 05/28/22 05:50 Dose: 81 mg Atorvastatin Calcium (Atorvastatin 40 Mg Tablet) 40 mg PO QAM [facility] Last Admin: 05/28/22 05:50 Dose: 40 mg Budesonide (Budesonide 0.5 Mg/2 Ml Neb) 0.5 mg INHALATION BID.RESPIRATORY [facility] Last Admin: 05/27/22 22:18 Dose: 0.5 mg Bupropion HCl (Bupropion Xl (24 Hr) 300 Mg Tablet) 150 mg PO QAM [facility] Last Admin: 05/28/22 05:50 Dose: 150 mg Buspirone HCl (Buspirone 10 Mg Tablet) 5 mg PO TID [facility] Last Admin: 05/27/22 21:13 Dose: 5 mg Capsaicin (Capsaicin 0.025% Cream 60 Gm) 1 applic TOPICAL QID PRN PRN Reason: PAIN Dextrose (Dextrose 50% Syringe 50 Ml) 25 ml IVP ONCE PRN; Protocol PRN Reason: hypoglycemia protocol Dextrose (Dextrose 50% Syringe 50 Ml) 50 ml IVP PRN PRN; Protocol PRN Reason: hypoglycemia protocol Furosemide (Furosemide 10 Mg/Ml Sdv 10ml) 80 mg IVP Q8H [facility] Last Admin: 05/28/22 05:04 Dose: 80 mg Gabapentin (Gabapentin 100 Mg Capsule) 100 mg PO BID [facility] Last Admin: 05/27/22 17:19 Dose: 100 mg Glucagon (Glucagon 1 Mg/Ml Inj 1 Ml) 1 mg IM ONCE PRN; Protocol PRN Reason: Adult Acute Hypoglycemia Prot. Dextrose (D5w) 500 mls @ 100 mls/hr IV ONCE PRN; Protocol PRN Reason: Adult Acute Hypoglycemia Prot Cefepime HCl 1,000 mg/ Sodium (Chloride) 50 mls @ 100 mls/hr IV Q24H [facility]; Protocol Last Infusion: 05/27/22 15:00 Dose: Infused Vancomycin HCl 500 mg/ Sodium (Chloride) 100 mls @ 200 mls/hr IV Q48H RANDY Last Infusion: 05/26/22 18:41 Dose: Infused Iron Sucrose 200 mg/ Sodium (Chloride) 110 mls @ 220 mls/hr IV Q24H RANDY Stop: 05/31/22 09:14 Last Infusion: 05/27/22 08:53 Dose: Infused Insulin Glargine (Insulin Glargine 100 Units/1 Ml) 30 unit SUBCUT BEDTIME [facility] Last Admin: 05/27/22 21:34 Dose: 30 unit Insulin Human Lispro (Insulin Lispro 100 Unit/1 Ml) 0 unit SUBCUT WM&BEDTIME [facility]; Protocol Last Admin: 05/27/22 21:34 Dose: 8 unit Ipratropium [place] (Ipratropium 0.5 Mg/2.5 Ml Neb) 0.5 mg INHALATION Q6H.RESP [facility] Last Admin: 05/28/22 02:12 Dose: Not Given Isosorbide Mononitrate (Isosorbide Mononitrate Er 30 Mg Tablet) 15 mg PO BID [facility] Last Admin: 05/27/22 17:19 Dose: 15 mg Levalbuterol HCl (Levalbuterol 0.63 Mg/3 Ml Neb) 0.63 mg INHALATION Q6H.RESP [facility] Last Admin: 05/28/22 02:12 Dose: Not Given Levothyroxine Sodium (Levothyroxine 88 Mcg Tablet) 88 mcg PO QAM [facility] Last Admin: 05/28/22 05:50 Dose: 88 mcg Metolazone (Metolazone 5 Mg Tablet) 5 mg PO DAILY [facility] Last Admin: 05/27/22 08:30 Dose: 5 mg Metoprolol Tartrate (Metoprolol Tartrate 50 Mg Tablet) 25 mg PO BID@0600,1800 [facility] Last Admin: 05/28/22 05:50 Dose: 25 mg Nitroglycerin (Nitroglycerin 0.4 Mg Sublingual Tablet) 0.4 mg SUBLINGUAL Q5M PRN PRN Reason: Chest Pain Ondansetron HCl (Ondansetron 2 Mg/Ml Sdv 2 Ml) 4 mg IVP Q2M PRN PRN Reason: NAUSEA Pantoprazole Sodium (Pantoprazole 40 Mg Sdv) 40 mg IVP Q24H [facility] Last Admin: 05/28/22 00:09 Dose: 40 mg Ranolazine (Ranolazine (12hr) 500 Mg Tablet) 500 mg PO BID RANDY Last Admin: 05/27/22 17:19 Dose: 500 mg Ropinirole HCl (Ropinirole 0.25 Mg Tablet) 0.5 mg PO BEDTIME RANDY Last Admin: 05/27/22 21:13 Dose: 0.5 mg Trazodone HCl (Trazodone 100 Mg Tablet) 400 mg PO BEDTIME PRN PRN Reason: insomnia Last Admin: 05/27/22 21:13 Dose: 400 mg Vitals/I&O/Wt Last Vital Signs Temp 97.6 F 05/28/22 07:57 Pulse 58 L 05/28/22 07:57 Resp 20 H 05/28/22 07:57 BP 151/84 05/28/22 07:57 Pulse Ox 93 05/28/22 07:57 O2 Del Method 05/28/22 07:57 O2 Flow Rate 5 05/28/22 07:57 FiO2 50 05/27/22 11:51 05/27/22 05/28/22 05/28/22 22:59 06:59 14:59 Intake Total 350 / 700 Output Total 850 / 1850 1500 / 3350 Balance -500 / -1150 -1500 / -2650 Weight last 48 hrs Weight 109.996 kg Weight 113.716 kg Physical Exam Narrative: weak, mild sob, good uop, vs noted heent- nc/at, eomi neck supple lungs crackles heart reg abd soft, nt, +BS, has a PD catheter internally- not externalized yet ext + b/l edema neuro- a,a, o x 3, mild asterixis Urinary Catheter Management: Little: Cath Placed During This Visit: yes Reason for Continuing Indwelling Catheter: Accurate Measurement of Urinary Output in Critically Ill Patients Urinary Catheter Date of Insertion: 05/19/22 Data 05/28/22 05:28 05/28/22 05:28 A&P Assessment and plan (1) Stage 5 chronic kidney disease: 51 yr old man 1. CKD stage 5- from DM,CRS -pt consents to HD -will arrange for a permacath - cr stable w/ diuresis -replace k -met alkalosis from diuretics -normal phos -dec lasix to bid 2. anemia- iron sta 15.6%, ferritin 228- iv iron -hgb improving 3. DM control 4. htn- bp okay meds reviewed -monitor vanco level- keep trough under 19 seen and examined w/ RN - telehealth visit time spent 30 minutes Plan as above Attestations Medical Necessity Statement*: ckd,sob Time Spent in Patient Care: 16 - 35 minutes (>than 50% of time spent in counselling and/or direct pt care on unit). Coding Level of Care Code Acute Production Internship for [facility] Diagnoses Stage 5 chronic kidney disease N18.5
[2022-05-28] MEDS: BuSPIRONE 10 mg Tablet 5 MG PO ×3 (08:11→20:43)
[2022-05-28] MEDS: metOLazone 5 MG Tablet PO (08:11)
[2022-05-28] MEDS: ranolazine (12HR) 500 mg Tablet PO ×2 (08:11→17:51)
[2022-05-28] MEDS: isosorbide mononitrate ER 30 mg Tablet 15 MG PO ×2 (08:11→17:50)
[2022-05-28] MEDS: gabapentin 100 mg Capsule PO ×2 (08:11→17:50)
[2022-05-28 09:17] LABS: Hepatitis B Surface Antigen Non-Reactive (Nonreactive); Hepatitis C Virus Antibody Non-Reactive (Nonreactive)
[2022-05-28 09:20] LABS: Hepatitis B Surface AB < 3.5 (11.5-1000)
[2022-05-28] MEDS: iron sucrose 200 MG in sodium chloride 0.9% (100 ml) 100 ML 220 MG IV (10:27)
[2022-05-28 12:04] LABS: Glucose Point of Care 140 mg/dL (70-110)
--- NOTE | 2022-05-28 12:10 | P.PN_ITS ---
Subjective Subjective: Hospital course, labs appreciated. On examination patient lying comfortably in bed on 4 L oxygen supplementation. States he is feeling better. Denies any nausea, vomiting, headache. Was on BiPAP overnight. A lot more awake and alert. Able to have complete conversation. States foot pain is b ramila now. Able to put some pressure on the feet. Vitals/I&O/Wt Last Vital Signs Temp 97.7 F 05/28/22 11:54 Pulse 63 05/28/22 11:54 Resp 20 H 05/28/22 11:54 BP 118/78 05/28/22 11:54 Pulse Ox 89 L 05/28/22 11:54 O2 Del Method 05/28/22 11:54 O2 Flow Rate 5 05/28/22 11:54 FiO2 50 05/27/22 11:51 05/27/22 05/28/22 05/28/22 22:59 06:59 14:59 Intake Total 350 / 700 410 / 410 Output Total 850 / 1850 1500 / 3350 Balance -500 / -1150 -1500 / -2650 410 / 410 Weight last 48 hrs Weight 109.996 kg Weight 113.716 kg Physical Exam Const: COMMON NORMALS: no acute distress and patient oriented x3 HENMT: COMMON NORMALS: normocephalic HEAD & SCALP: normocephalic Eye: COMMON NORMALS: Equal, round and reactive pupils present and EOMs intact bilaterally PUPIL: Yes Equal, round and reactive pupils present Neck/C-Spine: COMMON NORMALS: no JVD Lymph: LYMPHATIC: no lymphadenopathy noted Resp: COMMON NORMALS: normal respiratory effort, No retractions, No use of accessory muscles and clear to auscultation bilaterally AUSCULTATION: clear to auscultation bilaterally Cardio: COMMON NORMALS: no JVD, regular rate, regular rhythm, S1 normal heart sound present and S2 normal heart sound present RATE: regular rate RHYTHM: regular rhythm HEART SOUNDS: S1 normal heart sound present and S2 normal heart sound present GI: COMMON NORMALS: Normal to inspection, nondistended, normoactive bowel sounds present, Soft to palpation, non-tender, no masses and no bruits PALPATION: Yes Soft to palpation Extremity: COMMON NORMALS: capillary refill normal, no clubbing, cyanosis or edema, no calf tenderness and no pedal edema Neuro: COMMON NORMALS: patient oriented x3, CN's II-XII intact bilaterally, moves all extremities and no focal motor deficits Psych: COMMON NORMALS: mental status grossly normal Skin: NARRATIVE SKIN EXAM: Bilateral lower extremity, fasciotomy scars Left lower extremity, area of cellulitis erythema, swelling, warmth measuring 3 x 30 cm round, area of abscess drainage, incision measuring 1 cm long, vertical, dressing on top Urinary Catheter Management: Little: Cath Placed During This Visit: yes Reason for Continuing Indwelling Catheter: Accurate Measurement of Urinary Output in Critically Ill Patients Urinary Catheter Date of Insertion: 05/19/22 Data 05/28/22 05:28 05/28/22 05:28 A&P Assessment and plan (1) Respiratory failure with hypoxia: Combination of mixed diastolic and systolic heart failure in setting of renal insufficiency requiring hemodialysis and aspiration pneumonia. Keep oxygen supplementation with saturation over 90%. BiPAP nightly and as needed. Appreciate nephrology recommendations on diuretic challenge with Lasix and metolazone for now. Renal function with minimal improvement, but with underlying CHF and renal compromise patient most likely needs hemodialysis. Patient is agreeable. Will consult surgery for hemodialysis access. Diet advanced as per speech recommendations. Aspiration precautions. Fluid restriction up to 1200 cc. Patient has history of 30 to 35% with diastolic dysfunction and regional wall motion abnormality. Strict input output charting, daily weights. Maintain Little. Appreciate CT chest results. PE unlikely. Switch anticoagulation back to Eliquis 2.5 mg twice daily. Continue vancomycin and cefepime for now and finish a 7-day course. Sputum culture negative except Lucy albicans in sputum which is most likely commensal. Respiratory viral panel negative. Incentive spirometry, flutter valve. (2) Chronic systolic heart failure: (3) CRF (chronic renal failure): (4) Acute kidney injury superimposed on CKD: Appreciate nephrology assessment, consideration of hemodialysis. Discussed with him risk of hemodynamic changes in setting of low EF. Anticoagulant is held. Patient agreeable. Surgery contacted by access. No obstructive uropathy on kidney ultrasound. Dose of Wellbutrin, gabapentin decreased. (5) Anemia: Hemoglobin stable. No sign of retroperitoneal/psoas bleeding on CT. Follow-up Hemoccult. Continue PPI. Had some right lower quadrant/right flank pain yesterday,no acute pathology on CT. Not complaining of it today. No obvious bleeding. He is on anticoagulation. Does have underlying CKD. (6) Chest pain: Seen multiple times in the past for similar complaints. So far no additional chest pain. Multiple cardiac angiograms as per the chart with patent stents. Lexiscan stress test negative for any acute ischemia and consistent with myocardial scarring. Continue with aspirin, statin, Imdur, beta-zaira. (7) Cellulitis and abscess of left leg: Post I&D. Healing well. Erythema resolved. No drainage from wound. Small abrasion/erosion posterior lower leg, without drainage. Does have a bruise in the area, no significant swelling or fluctuance. Continue wound care. MRSA PCR positive. Wound culture growing MRSA. Stop vancomycin. (8) 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 mellitus: Patient complaining of bilateral lower foot pain most likely related to neuropathy. Improved. Decreased gabapentin dose due to JESUS. Requip to 0.5 mg nightly. Decreased bupropion dose. Continue BuSpar. Celexa stopped. (9) Hypertension: Goal blood pressure less than 140/90 mmHg. 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 On hold currently for possible need of hemodialysis access Plan Asterixis: Noted mild degree of metabolic encephalopathy, asterixis. Secondary to uremia. He is also generally weak and deconditioned. Fall precautions. Up only with assistance. Pain in feet when standing: Dry cracked skin. emollient. Full code. Protonix for PUD prophylaxis Eliquis is suffice DVT prophylaxis Discharge planning: SNF for further rehabilitation as his is not able to take care of him at his home anymore. Attestations Medical Necessity Statement*: Requires further hospitalization for management of hypoxia secondary to mixed congestive heart failure in setting of chronic renal failure requiring hemodialysis while hemodialysis access is achieved Time Spent in Patient Care: Greater than 35 minutes Coding Level of Care Code Acute Loss Prevention Leader for [facility] F[facility] Diagnoses Respiratory failure with hypoxia J96.91 Chronic systolic heart failure I50.22 CRF (chronic renal failure) N18.9 Acute kidney injury superimposed on CKD N17.9; N18.9 Anemia D64.9 Chest pain R07.9 Cellulitis and abscess of left leg L03.116; L02.416 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 mellitus E11.42 Hypertension I10 Chronic anticoagulation Z79.01
[2022-05-28] MEDS: levalbuterol 0.63 mg/3 mL Neb INHALATION ×2 (13:28→19:43)
[2022-05-28] MEDS: ipratropium 0.5 mg/2.5 mL Neb INHALATION ×2 (13:28→19:43)
[2022-05-28 13:58] LABS: Glucose Point of Care 159 mg/dL (70-110)
[2022-05-28 17:20] LABS: Glucose Point of Care 204 mg/dL (70-110)
[2022-05-28] MEDS: insulin lispro 100 unit/1 mL SUBCUT ×2 (17:51→22:13)
[2022-05-28] MEDS: vancomycin 500 MG in sodium chloride 0.9% (plus) 100 ML 200 MG IV (17:56)
[2022-05-28] MEDS: budesonide 0.5 mg/2 mL Neb INHALATION (19:43)
[2022-05-28] MEDS: ropinirole 0.25 mg Tablet 0.5 MG PO (20:43)
[2022-05-28] MEDS: HYDROcodone-acetaminophen 5-325 mg Tablet 1 TAB PO (20:43)
[2022-05-28] MEDS: trazodone 100 mg Tablet 400 MG PO (20:43)
[2022-05-28 21:54] LABS: Glucose Point of Care 239 mg/dL (70-110)
[2022-05-28] MEDS: insulin glargine 100 units/1 mL 30 UNIT SUBCUT (22:14)
[2022-05-29] VITALS (10 sets, daily range): BP systolic 129–157; BP diastolic 59–78; PULSE 58–70; RESP 16–18; TEMP 36.5–36.8; O2SAT 91–95
[2022-05-29] MEDS: pantoprazole 40 mg SDV IVP (00:06)
[2022-05-29] MEDS: levothyroxine 88 mcg Tablet PO (04:53)
[2022-05-29] MEDS: buPROPion XL (24 HR) 300 mg Tablet 150 MG PO (04:53)
[2022-05-29] MEDS: aspirin 81 mg EC Tablet PO (04:53)
[2022-05-29] MEDS: metoprolol tartrate 50 mg Tablet 25 MG PO ×2 (04:54→17:21)
[2022-05-29] MEDS: atorvastatin 40 mg Tablet PO (04:54)
[2022-05-29 05:53] LABS: Basophils # 0.1 10^3/uL (0.0-0.1); Basophils % 0.9 %; Eosinophils # 0.4 10^3/uL (0.0-0.8); Hematocrit 25.6 % (42.0-52.0); Hemoglobin 8.5 g/dL (11.7-16.6); Lymphocytes # 2.1 10^3/uL (0.8-4.8); Lymphocytes % 17.6 %; Mean Corpuscular HGB Conc 33.2 g/dL (30.0-36.0); Mean Corpuscular Hemoglobin 30.6 pg (28.0-34.0); Mean Corpuscular Volume 92.1 fl (80-94); Mean Platelet Volume 9.5 fL (7.4-10.4); Monocytes # 1.1 10^3/uL (0.2-0.9); Monocytes % 9.4 %; Neutrophils # 7.29 10^3/uL (1.8-7.7); Neutrophils % 62.3 %; Nucleated Red Blood Cells % 0.3 %; Platelet Count 575 10^3/cmm (130-400); Red Blood Count 2.78 10^6/uL (4.1-5.3); Red Cell Distribution Width 14.8 % (12.1-15.1); White Blood Count 11.7 10^3/uL (4.0-10.0)
[2022-05-29 06:31] LABS: Alanine Aminotransferase 9 U/L (0-41); Alkaline Phosphatase 98 U/L (40-130); Anion Gap 18.7 (5-19); Aspartate Amino Transferase 12 U/L (0-40); Blood Urea Nitrogen 78 mg/dL (6-20); Calcium 8.8 mg/dL (8.5-10.5); Carbon Dioxide 31 mmol/L (22-29); Chloride 94 mmol/L (98-107); Globulin 3.4 g/dL (1.3-4.6); Glomerular Filtration Rate 13.7 mL/min (90-130); Glucose 85 mg/dL (65-115); Magnesium 1.8 mg/dL (1.7-2.3); Osmolality Calculated 313 mOsm/kg (285-295); Phosphorus 5.5 mg/dL (2.5-4.5); Potassium 3.7 mmol/L (3.5-5.1); Sodium 140 mmol/L (136-145); Total Bilirubin 0.2 mg/dL (0.15-1.2); Total Protein 6.4 g/dL (6.6-8.7)
[2022-05-29 06:57] LABS: Glucose Point of Care 96 mg/dL (70-110)
[2022-05-29 08:07] LABS: Slide Review Slide Review Perform
[2022-05-29] MEDS: levalbuterol 0.63 mg/3 mL Neb INHALATION ×2 (08:47→14:49)
[2022-05-29] MEDS: ipratropium 0.5 mg/2.5 mL Neb INHALATION ×2 (08:47→14:49)
[2022-05-29] MEDS: budesonide 0.5 mg/2 mL Neb INHALATION (08:47)
[2022-05-29] MEDS: BuSPIRONE 10 mg Tablet 5 MG PO ×3 (09:02→21:12)
[2022-05-29] MEDS: FUROsemide 10 mg/mL SDV 10mL 80 MG IVP (09:02)
[2022-05-29] MEDS: ranolazine (12HR) 500 mg Tablet PO ×2 (09:02→17:21)
[2022-05-29] MEDS: metOLazone 5 MG Tablet PO (09:03)
[2022-05-29] MEDS: gabapentin 100 mg Capsule PO ×2 (09:03→17:21)
[2022-05-29] MEDS: isosorbide mononitrate ER 30 mg Tablet 15 MG PO ×2 (09:03→17:21)
--- NOTE | 2022-05-29 10:26 | P.PN_ITS ---
Subjective Subjective: feels better. is urinating. dec foot pain. denies n/v/f/c/palomo/d Medications: Reviewed: Yes Medication Review Details: Current Medications Acetaminophen (Acetaminophen 325 Mg Tablet) 650 mg PO Q6H PRN PRN Reason: Mild/Mod Pain Or Temp >/= 101 Last Admin: 05/26/22 17:52 Dose: 650 mg Hydrocodone Bitart/Acetaminophen (Hydrocodone-Acetaminophen 5-325 Mg Tablet) 1 tab PO Q8H PRN PRN Reason: MODERATE PAIN Last Admin: 05/28/22 20:43 Dose: 1 tab Amlodipine Besylate (Amlodipine 5 Mg Tablet) 5 mg PO DAILY [facility] Last Admin: 05/20/22 09:24 Dose: 5 mg Apixaban (Apixaban 5 Mg Tablet) 2.5 mg PO BID@0900,2100 [facility] Last Admin: 05/27/22 08:24 Dose: 2.5 mg Aspirin (Aspirin 81 Mg Ec Tablet) 81 mg PO DAILY@0600 [facility] Last Admin: 05/29/22 04:53 Dose: 81 mg Atorvastatin Calcium (Atorvastatin 40 Mg Tablet) 40 mg PO QAM [facility] Last Admin: 05/29/22 04:54 Dose: 40 mg Budesonide (Budesonide 0.5 Mg/2 Ml Neb) 0.5 mg INHALATION BID.RESPIRATORY [facility] Last Admin: 05/29/22 08:47 Dose: 0.5 mg Bupropion HCl (Bupropion Xl (24 Hr) 300 Mg Tablet) 150 mg PO QAM [facility] Last Admin: 05/29/22 04:53 Dose: 150 mg Buspirone HCl (Buspirone 10 Mg Tablet) 5 mg PO TID [facility] Last Admin: 05/29/22 09:02 Dose: 5 mg Capsaicin (Capsaicin 0.025% Cream 60 Gm) 1 applic TOPICAL QID PRN PRN Reason: PAIN Dextrose (Dextrose 50% Syringe 50 Ml) 25 ml IVP ONCE PRN; Protocol PRN Reason: hypoglycemia protocol Dextrose (Dextrose 50% Syringe 50 Ml) 50 ml IVP PRN PRN; Protocol PRN Reason: hypoglycemia protocol Furosemide (Furosemide 10 Mg/Ml Sdv 10ml) 80 mg IVP BID@08,16 [facility] Last Admin: 05/29/22 09:02 Dose: 80 mg Gabapentin (Gabapentin 100 Mg Capsule) 100 mg PO BID [facility] Last Admin: 05/29/22 09:03 Dose: 100 mg Glucagon (Glucagon 1 Mg/Ml Inj 1 Ml) 1 mg IM ONCE PRN; Protocol PRN Reason: Adult Acute Hypoglycemia Prot. Dextrose (D5w) 500 mls @ 100 mls/hr IV ONCE PRN; Protocol PRN Reason: Adult Acute Hypoglycemia Prot Vancomycin HCl 500 mg/ Sodium (Chloride) 100 mls @ 200 mls/hr IV Q48H [facility] Stop: 05/29/22 18:59 Last Infusion: 05/28/22 19:51 Dose: Infused Iron Sucrose 200 mg/ Sodium (Chloride) 110 mls @ 220 mls/hr IV Q24H [facility] Stop: 05/31/22 09:14 Last Infusion: 05/28/22 10:57 Dose: Infused Insulin Glargine (Insulin Glargine 100 Units/1 Ml) 30 unit SUBCUT BEDTIME [facility] Last Admin: 05/28/22 22:14 Dose: 30 unit Insulin Human Lispro (Insulin Lispro 100 Unit/1 Ml) 0 unit SUBCUT WM&BEDTIME [facility]; Protocol Last Admin: 05/29/22 07:08 Dose: Not Given Ipratropium [place] (Ipratropium 0.5 Mg/2.5 Ml Neb) 0.5 mg INHALATION Q6H.RESP [facility] Last Admin: 05/29/22 08:47 Dose: 0.5 mg Isosorbide Mononitrate (Isosorbide Mononitrate Er 30 Mg Tablet) 15 mg PO BID [facility] Last Admin: 05/29/22 09:03 Dose: 15 mg Levalbuterol HCl (Levalbuterol 0.63 Mg/3 Ml Neb) 0.63 mg INHALATION Q6H.RESP [facility] Last Admin: 05/29/22 08:47 Dose: 0.63 mg Levothyroxine Sodium (Levothyroxine 88 Mcg Tablet) 88 mcg PO QAM [facility] Last Admin: 05/29/22 04:53 Dose: 88 mcg Metolazone (Metolazone 5 Mg Tablet) 5 mg PO DAILY [facility] Last Admin: 05/29/22 09:03 Dose: 5 mg Metoprolol Tartrate (Metoprolol Tartrate 50 Mg Tablet) 25 mg PO BID@0600,1800 [facility] Last Admin: 05/29/22 04:54 Dose: 25 mg Nitroglycerin (Nitroglycerin 0.4 Mg Sublingual Tablet) 0.4 mg SUBLINGUAL Q5M PRN PRN Reason: Chest Pain Ondansetron HCl (Ondansetron 2 Mg/Ml Sdv 2 Ml) 4 mg IVP Q2M PRN PRN Reason: NAUSEA Pantoprazole Sodium (Pantoprazole 40 Mg Sdv) 40 mg IVP Q24H [facility] Last Admin: 05/29/22 00:06 Dose: 40 mg Ranolazine (Ranolazine (12hr) 500 Mg Tablet) 500 mg PO BID [facility] Last Admin: 05/29/22 09:02 Dose: 500 mg Ropinirole HCl (Ropinirole 0.25 Mg Tablet) 0.5 mg PO BEDTIME [facility] Last Admin: 05/28/22 20:43 Dose: 0.5 mg Trazodone HCl (Trazodone 100 Mg Tablet) 400 mg PO BEDTIME PRN PRN Reason: insomnia Last Admin: 05/28/22 20:43 Dose: 400 mg Vitals/I&O/Wt Last Vital Signs Temp 97.8 F 05/29/22 08:00 Pulse 62 05/29/22 08:48 Resp 16 05/29/22 08:48 BP 157/70 05/29/22 08:00 Pulse Ox 92 05/29/22 08:48 O2 Del Method 05/29/22 08:48 O2 Flow Rate 5 05/29/22 08:48 FiO2 50 05/27/22 11:51 05/28/22 05/29/22 05/29/22 22:59 06:59 14:59 Intake Total 340 / 750 120 / 120 Output Total 1450 / 1450 600 / 2050 Balance -1110 / -700 -600 / -1300 120 / 120 Weight last 48 hrs Weight 109.134 kg Weight 109.996 kg Physical Exam Narrative: improved, less sob, good uop, vs noted heent- nc/at, eomi neck supple lungs crackles dec b/l, + dull bases heart reg abd soft, nt, +BS, has a PD catheter internally- not externalized yet ext + b/l edema. left leg red warm area w/ draining abscess neuro- a,a, o x 3, mild asterixis rt femoral dialysis catheter Urinary Catheter Management: Little: Cath Placed During This Visit: yes Reason for Continuing Indwelling Catheter: Accurate Measurement of Urinary Output in Critically Ill Patients Urinary Catheter Date of Insertion: 05/19/22 Data 05/29/22 04:50 05/29/22 04:50 A&P Assessment and plan (1) Stage 5 chronic kidney disease: 51 yr old man: 1. MRSA wound infection 2. CKD stage 5- from DM,CRS -pt consents to HD - cr stable w/ diuresis -replace k as needed -met alkalosis from diuretics - phos of 5.5- monitor, may need a binder -we need to externalize his PD catheter- was placed by DR Lopez- he has now left. Please ask surgeon if can do this -dec lasix to bid 2. anemia- iron sta 15.6%, ferritin 228- iv iron -hgb improving 3. DM control 4. htn- bp okay meds reviewed -monitor vanco level- keep trough under 19 seen and examined w/ RN - telehealth visit time spent 30 minutes discussed w/ Dr Marino Plan as above Attestations Medical Necessity Statement*: chf, ckd stage 5 Time Spent in Patient Care: 16 - 35 minutes (>than 50% of time spent in counselling and/or direct pt care on unit) . Coding Level of Care Code Acute Forms Designer for Aaron Irene Diagnoses Stage 5 chronic kidney disease N18.5
[2022-05-29] MEDS: iron sucrose 200 MG in sodium chloride 0.9% (100 ml) 100 ML 220 MG IV (10:39)
[2022-05-29 11:37] LABS: Glucose Point of Care 122 mg/dL (70-110)
--- NOTE | 2022-05-29 12:19 | P.PN_ITS ---
Subjective Subjective: No acute events overnight. States feeling better and lower limb pain is decreasing. Remains on 4 to 5 L of oxygen supplementation keeping saturation over 90%. Documented urine output of 3 L and 2 L in last 2 days respectively. Vitals/I&O/Wt Last Vital Signs Temp 97.8 F 05/29/22 08:00 Pulse 62 05/29/22 08:48 Resp 16 05/29/22 08:48 BP 157/70 05/29/22 08:00 Pulse Ox 92 05/29/22 08:48 O2 Del Method 05/29/22 08:48 O2 Flow Rate 5 05/29/22 08:48 FiO2 50 05/27/22 11:51 05/28/22 05/29/22 05/29/22 22:59 06:59 14:59 Intake Total 340 / 750 120 / 120 Output Total 1450 / 1450 600 / 2050 Balance -1110 / -700 -600 / -1300 120 / 120 Weight last 48 hrs Weight 109.134 kg Weight 109.996 kg Physical Exam Const: COMMON NORMALS: no acute distress and patient oriented x3 HENMT: COMMON NORMALS: normocephalic HEAD & SCALP: normocephalic Eye: COMMON NORMALS: Equal, round and reactive pupils present and EOMs intact bilaterally PUPIL: Yes Equal, round and reactive pupils present Neck/C-Spine: COMMON NORMALS: no JVD Lymph: LYMPHATIC: no lymphadenopathy noted Resp: COMMON NORMALS: normal respiratory effort, No retractions, No use of accessory muscles and clear to auscultation bilaterally AUSCULTATION: clear to auscultation bilaterally Cardio: COMMON NORMALS: no JVD, regular rate, regular rhythm, S1 normal heart sound present and S2 normal heart sound present RATE: regular rate RHYTHM: regular rhythm HEART SOUNDS: S1 normal heart sound present and S2 normal heart sound present GI: COMMON NORMALS: Normal to inspection, nondistended, normoactive bowel sounds present, Soft to palpation, non-tender, no masses and no bruits PALPATION: Yes Soft to palpation Extremity: COMMON NORMALS: capillary refill normal, no clubbing, cyanosis or edema, no calf tenderness and no pedal edema Neuro: COMMON NORMALS: patient oriented x3, CN's II-XII intact bilaterally, moves all extremities and no focal motor deficits Psych: COMMON NORMALS: mental status grossly normal Skin: NARRATIVE SKIN EXAM: Bilateral lower extremity, fasciotomy scars Left lower extremity, area of cellulitis erythema, swelling, warmth measuring 3 x 30 cm round, area of abscess drainage, incision measuring 1 cm long, vertical, dressing on top Urinary Catheter Management: Little: Cath Placed During This Visit: yes Reason for Continuing Indwelling Catheter: Accurate Measurement of Urinary Output in Critically Ill Patients Urinary Catheter Date of Insertion: 05/19/22 Data 05/29/22 04:50 05/29/22 04:50 A&P Assessment and plan (1) Respiratory failure with hypoxia: Combination of mixed diastolic and systolic heart failure in setting of renal insufficiency requiring hemodialysis and aspiration pneumonia. Keep oxygen supplementation with saturation over 90%. BiPAP nightly and as needed. Appreciate nephrology recommendations on diuretic challenge with Lasix and metolazone for now. Renal function with minimal improvement, but with underlying CHF and renal compromise patient most likely needs hemodialysis. Patient is agreeable. Will consult surgery for hemodialysis access. Diet advanced as per speech recommendations. Aspiration precautions. Fluid restriction up to 1200 cc. Patient has history of 30 to 35% with diastolic dysfunction and regional wall motion abnormality. Strict input output charting, daily weights. Maintain Little. Appreciate CT chest results. PE unlikely. Switch anticoagulation back to Eliquis 2.5 mg twice daily. Continue vancomycin and cefepime for now and finish a 7-day course. Sputum culture negative except Lucy albicans in sputum which is most likely commensal. Respiratory viral panel negative. Incentive spirometry, flutter valve. (2) Chronic systolic heart failure: (3) CRF (chronic renal failure): (4) Acute kidney injury superimposed on CKD: Appreciate nephrology assessment, consideration of hemodialysis. Discussed with him risk of hemodynamic changes in setting of low EF. Anticoagulant is held. Patient agreeable. Surgery contacted by access. No obstructive uropathy on kidney ultrasound. Dose of Wellbutrin, gabapentin decreased. (5) Anemia: Hemoglobin stable. No sign of retroperitoneal/psoas bleeding on CT. Follow-up Hemoccult. Continue PPI. Had some right lower quadrant/right flank pain yesterday,no acute pathology on CT. Not complaining of it today. No obvious bleeding. He is on anticoagulation. Does have underlying CKD. (6) Chest pain: Seen multiple times in the past for similar complaints. So far no additional chest pain. Multiple cardiac angiograms as per the chart with patent stents. Lexiscan stress test negative for any acute ischemia and consistent with myocardial scarring. Continue with aspirin, statin, Imdur, beta-zaira. (7) Cellulitis and abscess of left leg: Post I&D. Healing well. Erythema resolved. No drainage from wound. Small abrasion/erosion posterior lower leg, without drainage. Does have a bruise in the area, no significant swelling or fluctuance. Continue wound care. MRSA PCR positive. (8) 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 mellitus: Patient complaining of bilateral lower foot pain most likely related to neuropathy. Improved. Decreased gabapentin dose due to JESUS. Requip to 0.5 mg nightly. Decreased bupropion dose. Continue BuSpar. Celexa stopped. (9) Hypertension: Goal blood pressure less than 140/90 mmHg. 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 On hold currently for possible need of hemodialysis access Plan Asterixis: Noted mild degree of metabolic encephalopathy, asterixis. Secondary to uremia. He is also generally weak and deconditioned. Fall precautions. Up only with assistance. Pain in feet when standing: Dry cracked skin. emollient. Full code. Plan for the day: Continue with current antibiotics for the last day of antibiotics today. Permanent cath placement today. Dialysis as per nephrology. Will discuss with surgery regarding exploration of peritoneal dialysis catheter. So peritoneal dialysis can be started as an outpatient. Oxygen supplementation keeping saturation over 88%. Out of bed to chair for each meal. Continue with physical therapy. Protonix for PUD prophylaxis Eliquis is suffice DVT prophylaxis Discharge planning: SNF for further rehabilitation as his is not able to take care of him at his home anymore. Plan for discharge most likely within next 2 to 3 days. We will try to teach patient how to do peritoneal dialysis after exploration of the dialysis catheter. Attestations Medical Necessity Statement*: Requires further hospitalization for management of hypoxia secondary diastolic heart failure in setting of CKD requiring dialysis while safe discharge planning is sought Time Spent in Patient Care: Greater than 35 minutes Coding Level of Care Code Acute Supervisor/Port Director for Aaron Irene Diagnoses Respiratory failure with hypoxia J96.91 Chronic systolic heart failure I50.22 CRF (chronic renal failure) N18.9 Acute kidney injury superimposed on CKD N17.9; N18.9 Anemia D64.9 Chest pain R07.9 Cellulitis and abscess of left leg L03.116; L02.416 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 mellitus E11.42 Hypertension I10 Chronic anticoagulation Z79.01
--- NOTE | 2022-05-29 15:13 | PM.DIACAT ---
Procedure Note: Procedure: Preoperative diagnosis: Chronic kidney disease Stage V Postoperative diagnosis: Same Procedure: Placement of Mahurkar catheter in the right femoral vein Surgeon: John Anesthesia: Local Description of procedure: The patient's right groin was prepped and draped in a sterile manner. 5 mL of 1% lidocaine was infiltrated at the site of planned entry, an introducer needle was used to access the right femoral vein. Guidewire was passed through the introducer needle and the introducer needle was removed. Serial dilators were passed over the guidewire after the skin incision was extended using 11 blade and Mahurkar catheter was then passed over the guidewire and the guidewire was removed. The catheter was sutured to the skin using 2-0 Ethilon suture. Sterile dressings were applied. Postop procedure chest x-ray showed no evidence of pneumothorax and good positioning of the catheter. Coding Level of Care Code Acute Customer Account Manager for Aaron Irene
--- NOTE | 2022-05-29 16:09 | P.CONIM_ITS ---
Providers/Reason For Consult Consulting Physician/Specialty*: Dr. Efe Saucedo, /General surgery Reason for Consult*: Hemodialysis access Attending Physician: Rafiq Mariee MD Primary Care Provider: Kp Montanez DO History of Present Illness History of Present Illness Rei Queen II is a 52 year old male who is currently in the hospital with respiratory failure and systolic heart failure, who has chronic kidney disease stage V and nephrology is requesting hemodialysis access. He has a buried peritoneal dialysis catheter from about a year ago that has never been externalized or used. Nephrology was asking for externalization of the peritoneal dialysis catheter, however the assisted will only accept him with hemodialysis access. Review of Systems General: Reports: 10 or more systems reviewed and unremarkable except in HPI and below Medications/Allergies Home Medications Medication Instructions Recorded Confirmed Last Taken Type aspirin 81 mg tablet,delayed 81 mg PO DAILY@0600 06/01/19 05/16/22 05/05/22 History release dulaglutide 0.75 mg/0.5 mL 0.75 mg SUBCUT Q7D 06/01/19 05/16/22 05/05/22 History subcutaneous pen injector (Trulicity) multivitamin (Daily Multi-Vitamin 1 tab PO QPM 06/01/19 05/16/22 05/05/22 History tablet) cyclobenzaprine 10 mg tablet 10 mg PO TID PRN MUSCLE SPASMS 01/07/20 05/16/22 04/25/22 History insulin lispro 100 unit/mL See Rx Instructions .Route 09/25/20 05/16/22 04/25/22 History subcutaneous solution (Humalog .COMPLEX see pharmacy comments U-100 Insulin) nitroglycerin 0.4 mg sublingual 0.4 mg sublingual Q5M PRN Chest 10/10/20 05/16/22 04/25/22 Rx tablet (Nitrostat) Pain #25 tabs levothyroxine 88 mcg tablet 88 mcg PO QAM 02/09/21 05/16/22 05/05/22 History promethazine 25 mg tablet 25 mg PO Q6H PRN Pain 02/22/21 05/16/22 04/25/22 History amlodipine 5 mg tablet 5 mg PO DAILY #0 tabs 04/17/21 05/16/22 04/25/22 Rx metoprolol tartrate 50 mg tablet 25 mg PO BID@0600,1800 #0 tabs 04/17/21 05/16/22 04/25/22 Rx lidocaine 5 % topical patch 1 patch transdermal PRN PRN Pain 05/12/21 05/16/22 04/25/22 History isosorbide mononitrate 30 mg 30 mg PO BID@0600,1800 #180 tabs 05/22/21 05/16/22 04/25/22 Rx tablet,extended release 24 hr docusate sodium 100 mg capsule 100 mg PO BID #30 caps 06/15/21 05/16/22 04/25/22 Rx (Colace) apixaban 2.5 mg tablet (Eliquis) 2.5 mg PO BID 09/14/21 05/16/22 05/05/22 History insulin degludec 200 unit/mL (3 38 unit SUBCUT BEDTIME 12/11/21 05/16/2204/19 History mL) subcutaneous pen (Tresiba FlexTouch U-200 insulin) atorvastatin 40 mg tablet 40 mg PO QAM #90 tabs 12/19/21 05/16/22 05/05/22 Rx ranolazine 500 mg tablet,extended 500 mg PO BID #180 tabs 01/02/22 05/16/22 05/05/22 Rx release,12 hr (Ranexa) bupropion HCl 300 mg 24 hr tablet, 300 mg PO QAM #30 tabs 03/01/22 05/16/22 05/05/22 Rx extended release (Wellbutrin XL) buspirone 5 mg tablet 5 mg PO TID #90 tabs 03/01/22 05/16/22 05/05/22 Rx citalopram 40 mg tablet 40 mg PO DAILY #30 tabs 03/01/22 05/16/22 04/25/22 Rx trazodone 100 mg tablet 400 mg PO BEDTIME PRN insomnia 03/01/22 05/16/22 04/25/22 Rx #120 tabs bumetanide 2 mg tablet 2 mg PO BID 30 days #60 tabs 05/11/22 05/16/22 05/05/22 Rx potassium chloride 20 mEq 10 meq PO DIRECTED 30 days #30 05/11/22 05/16/22 04/25/22 Rx tablet,extended release(part/cryst) tabs calcitriol 0.25 mcg capsule See Rx Instructions .Route .COMPLEX 05/16/22 05/16/22 Unknown History metolazone 5 mg tablet 5 mg PO EVERY OTHER DAY 05/16/22 05/16/22 Unknown History Allergies Allergy/AdvReac Type Severity Reaction Status Date / Time Iodinated Contrast Media Allergy Severe ALGY-Difficulty Verified 04/25/22 09:08 Breathing iodine Allergy Severe ALGY-Difficulty Verified 04/25/22 09:08 Breathing metoclopramide [From Reglan] Allergy Severe ALGY-Difficulty Verified 04/25/22 09:08 Breathing nalbuphine [From Nubain] Allergy Severe ADR-Diarrhe Verified 04/25/22 09:08 a naproxen [From Naprosyn] Allergy Severe ADR-Vomitin Verified 04/25/22 09:08 g Sulfa (Sulfonamide Allergy Severe ALGY-Difficulty Verified 04/25/22 09:08 Antibiotics) Breathing ketorolac Allergy Intermediate ADR-Nausea Verified 04/25/22 09:08 ondansetron [From Zofran] Allergy Intermediate ADR-Abdominal Verified 04/25/22 09:08 Pain prochlorperazine Allergy Intermediate ADR-Irritab Verified 04/25/22 09:08 [From Compazine] le codeine AdvReac Severe ALGY-Anaphy Verified 04/25/22 09:08 laxis haloperidol [From Haldol] AdvReac Intermediate ADR-Irritab Verified 04/25/22 09:08 le Current Medications Generic Name Dose Route Start Last Admin Trade Name Juarezq PRN Reason Stop Dose Admin Acetaminophen 650 mg 05/16/22 00:47 05/26/22 17:52 Acetaminophen 325 Mg Tablet PO 650 mg Q6H PRN Administration Mild/Mod Pain Or Temp >/= 101 Hydrocodone Bitart/Acetaminophen 1 tab 05/23/22 12:50 05/28/22 20:43 Hydrocodone-Acetaminophen 5-325 Mg Tablet PO 1 tab Q8H PRN Administration MODERATE PAIN Amlodipine Besylate 5 mg 05/16/22 09:00 05/20/22 09:24 Amlodipine 5 Mg Tablet PO 5 mg DAILY RANDY Administration Apixaban 2.5 mg 05/19/22 21:00 05/27/22 08:24 Apixaban 5 Mg Tablet PO 2.5 mg BID@0900,2100 RANDY Administration Aspirin 81 mg 05/16/22 06:00 05/29/22 04:53 Aspirin 81 Mg Ec Tablet PO 81 mg DAILY@0600 RANDY Administration Atorvastatin Calcium 40 mg 05/16/22 06:00 05/29/22 04:54 Atorvastatin 40 Mg Tablet PO 40 mg QAM RANDY Administration Budesonide 0.5 mg 05/18/22 08:00 05/29/22 21:01 Budesonide 0.5 Mg/2 Ml Neb INHALATION Not Given BID.RESPIRATORY RANDY Bupropion HCl 150 mg 05/22/22 06:00 05/29/22 04:53 Bupropion Xl (24 Hr) 300 Mg Tablet PO 150 mg QAM RANDY Administration Buspirone HCl 5 mg 05/18/22 21:00 05/29/22 21:12 Buspirone 10 Mg Tablet PO 5 mg TID RANDY Administration Furosemide 80 mg 05/29/22 10:45 05/29/22 11:03 Furosemide 10 Mg/Ml Sdv 10ml IVP Not Given Q24H RANDY Gabapentin 100 mg 05/22/22 09:00 05/29/22 17:21 Gabapentin 100 Mg Capsule PO 100 mg BID RANDY Administration Iron Sucrose 200 mg/ Sodium 110 mls @ 220 mls/hr 05/27/22 08:45 05/29/22 11:09 Chloride IV 05/31/22 09:14 Infused Q24H RANDY Infusion Insulin Glargine 30 unit 05/17/22 21:00 05/29/22 21:11 Insulin Glargine 100 Units/1 Ml SUBCUT 30 unit BEDTIME RANDY Administration Insulin Human Lispro 0 unit 05/17/22 12:00 05/29/22 21:11 Insulin Lispro 100 Unit/1 Ml SUBCUT 4 unit WM&BEDTIME RANDY Administration Protocol Ipratropium [place] 0.5 mg 05/18/22 14:00 05/30/22 02:34 Ipratropium 0.5 Mg/2.5 Ml Neb INHALATION 0.5 mg Q6H.RESP RANDY Administration Isosorbide Mononitrate 15 mg 05/21/22 06:00 05/29/22 17:21 Isosorbide Mononitrate Er 30 Mg Tablet PO 15 mg BID RANDY Administration Levalbuterol HCl 0.63 mg 05/20/22 20:00 05/30/22 02:34 Levalbuterol 0.63 Mg/3 Ml Neb INHALATION 0.63 mg Q6H.RESP RANDY Administration Levothyroxine Sodium 88 mcg 05/16/22 06:00 05/29/22 04:53 Levothyroxine 88 Mcg Tablet PO 88 mcg QAM RANDY Administration Metolazone 5 mg 05/26/22 12:00 05/29/22 09:03 Metolazone 5 Mg Tablet PO 5 mg DAILY RANDY Administration Metoprolol Tartrate 25 mg 05/16/22 06:00 05/29/22 17:21 Metoprolol Tartrate 50 Mg Tablet PO 25 mg BID@0600,1800 RANDY Administration Pantoprazole Sodium 40 mg 05/16/22 00:47 05/30/22 01:23 Pantoprazole 40 Mg Sdv IVP 40 mg Q24H RANDY Administration Ranolazine 500 mg 05/16/22 09:00 05/29/22 17:21 Ranolazine (12hr) 500 Mg Tablet PO 500 mg BID RANDY Administration Ropinirole HCl 0.5 mg 05/18/22 21:00 05/29/22 21:11 Ropinirole 0.25 Mg Tablet PO 0.5 mg BEDTIME RANDY Administration Trazodone HCl 400 mg 05/16/22 00:47 05/28/22 20:43 Trazodone 100 Mg Tablet PO 400 mg BEDTIME PRN Administration insomnia PFSH Acute PFSH: Medical History Acute kidney injury superimposed on CKD Acute on chronic congestive heart failure Alcohol use disorder, moderate, in sustained remission Anemia Atherosclerotic heart disease of [place] coronary artery with other forms of angina pectoris hx of CAD with prior stenting of proximal LAD, LCx, RCA Chronic anticoagulation Eliquis Chronic kidney disease -baseline Cr appears to be around 1.5 Chronic systolic heart failure Depression Diabetes A1c-7.6 (08/2019) DVT (deep venous thrombosis) (~03/2020) Proximal left subclavian, basilic and brachial veins, started eliquis this stay, felt present prior to admission Foot drop, left GERD (gastroesophageal reflux disease) H/O acute myocardial infarction H/O deep venous thrombosis developed compartment syndrome History of pulmonary embolism Hyperlipidemia Hypertension Hypothyroidism Ischemic cardiomyopathy Major depressive disorder, recurrent severe without psychotic features Onychodystrophy Osteoarthritis of spine Surgical History H/O colonoscopy (11/14/20) 08/2015 H/O esophagogastroduodenoscopy (11/14/20) 08/2015 H/O removal of testicle left H/O skin graft H/O vasectomy History of appendectomy 1995 History of coronary artery stent placement 5x History of excision of mass 06/08/2019: Subcutaneous mass on back History of inguinal hernia repair, bilateral 1999 History of removal of Port-a-Cath Hx of cholecystectomy Peritoneal dialysis catheter in situ (06/15/21) Port-A-Cath in place Family History Grandfather Cancer skin cancer Parkinson disease Brother Hypertension Father Heart disease Mother Hypertension Stroke Aneurysm Grandmother Aneurysm Other Crohn disease Denies family history of Anesthesia complication Bleeding disorder Social History Smoking and tobacco status: never smoked Second hand smoke exposure: No Smoking risk assessment/counseling performed?: No Alcohol intake: former Year of sobriety/quit date alcohol: 2015 Former alcohol use details: Only holidays Desire information about alcohol rehabilitation?: No Counseling given: No Desire information about substance/drug rehabilitation?: No Counseling given: No Lives independently: Yes Household members: significant other Marital status: Single Current occupational status: disabled History of recent travel: No Vitals/I&O/Wt Last Vital Signs Temp 97.7 F 05/30/22 04:00 Pulse 58 L 05/30/22 04:00 Resp 14 05/30/22 04:00 BP 121/64 05/30/22 04:00 Pulse Ox 92 05/30/22 04:00 O2 Del Method 05/30/22 04:00 O2 Flow Rate 5 05/30/22 04:00 FiO2 50 05/27/22 11:51 05/29/22 05/29/22 05/30/22 14:59 22:59 06:59 Intake Total 370 / 370 856 / 1226 Output Total 3400 / 3400 300 / 3700 Balance 370 / 370 -2544 / -2174 -300 / -2474 Weight last 48 hrs Weight 237 lb 15.824 oz Weight 240 lb 9.6 oz Physical Exam Narrative: General : Patient is well developed , no acute distress, oriented x3 Head : Normal cephalic, a-traumatic. Ears : Pinnae and external canal are normal. Hearing is normal. Eyes : PERRLA, Sclera and injection are normal. No conjunctival discharge. Nose : Mucous membranes are without erythema. Throat : buccal mucosa is normal, gums are without significant recession or hypertrophy. Lungs : Equal chest rise bilaterally, no use of accessory muscles, trachea is midline. Cor : Rate and rhythm are normal. Abdomen : Soft, ND, NT, no g/r/m Urinary Catheter Management: Little: Cath Placed During This Visit: yes Reason for Continuing Indwelling Catheter: Accurate Measurement of Urinary Output in Critically Ill Patients Urinary Catheter Date of Insertion: 05/19/22 Data 05/29/22 04:50 05/29/22 04:50 A&P Assessment and plan (1) Stage 5 chronic kidney disease: Plan Temporary hemodialysis access Patient is scheduled for permacath placement and excision of peritoneal dialysis catheter on Saturday at 1230 The risks and benefits of the procedure, including but not limited to, bleeding, infection, scar, numbness, pain, damage to surrounding structures, was explained to the patient. Understand the risks and wishes to proceed. Coding Level of Care Code Acute Sign Wirer for Aaron Irene Diagnoses Stage 5 chronic kidney disease N18.5
[2022-05-29 16:19] LABS: ABG PCO2 43.5 mmHg (35-45); ABG PH Result 7.45 (7.35-7.45); Alveolar-Arterial Oxygen Gradi 39.1 mmHg (5-10); Arterial Blood Gas Hematocrit 28.1 % (42-52); Base Excess ABG 5.8 mmol/L (-2.0-2.0); Blood Gas Allen Test Pos; Blood Gas Sample Site Radial, right; Blood Gas Sample Type Arterial; Carboxyhemoglobin 1.1 %THgb (0.4-20.1); HCO3 ABG 30.4 mmol/L (22-26); HGB O2 Sat 93.9 % (95-100); Ionized Calcium Level - ABG 1.2 mmol/L (1.1-1.4); Methemoglobin 0.7 % (0.4-1.5); Oxygen Device BIPAP; Oxygen Saturation ABG 95.6; PO2 ABG 75.7 mmHg (80.0-100.0); Potassium Level - ABG 3.4 mmol/L (3.5-5.0); Total Hemoglobin 9.2 g/dL (14-18)
[2022-05-29 16:47] LABS: Glucose Point of Care 193 mg/dL (70-110)
[2022-05-29] MEDS: insulin lispro 100 unit/1 mL SUBCUT ×2 (17:21→21:11)
[2022-05-29] MEDS: heparin, porcine 1,000 unit/mL INJ 10 mL HE (19:40)
[2022-05-29 20:34] LABS: Glucose Point of Care 162 mg/dL (70-110)
[2022-05-29] MEDS: insulin glargine 100 units/1 mL 30 UNIT SUBCUT (21:11)
[2022-05-29] MEDS: ropinirole 0.25 mg Tablet 0.5 MG PO (21:11)
--- NOTE | 2022-05-29 22:29 | PC.HD ---
New right femoral dialysis cath with occlusiove dressing intact, serousanguinous drainage noted to site. To be replaced tomorrow with tunnelled cath. 2 hour sequential ultrafiltration only done, pt denied any symptoms, VSS, O2 sat 93% throughout on 5L NC. Tolerated well.
[2022-05-30] VITALS (13 sets, daily range): BP systolic 111–143; BP diastolic 53–85; PULSE 58–87; RESP 14–21; TEMP 36.3–36.6; O2SAT 92–98
[2022-05-30] MEDS: pantoprazole 40 mg SDV IVP (01:23)
[2022-05-30] MEDS: levalbuterol 0.63 mg/3 mL Neb INHALATION ×3 (02:34→20:44)
[2022-05-30] MEDS: ipratropium 0.5 mg/2.5 mL Neb INHALATION ×3 (02:34→22:30)
[2022-05-30 06:20] LABS: Alanine Aminotransferase 11 U/L (0-41); Albumin Level 3.2 g/dL (3.5-5.2); Alkaline Phosphatase 99 U/L (40-130); Anion Gap 15.4 (5-19); Aspartate Amino Transferase 15 U/L (0-40); Calcium 8.6 mg/dL (8.5-10.5); Carbon Dioxide 31 mmol/L (22-29); Chloride 95 mmol/L (98-107); Globulin 3.3 g/dL (1.3-4.6); Glomerular Filtration Rate 13.4 mL/min (90-130); Glucose 97 mg/dL (65-115); Magnesium 1.8 mg/dL (1.7-2.3); Osmolality Calculated 311 mOsm/kg (285-295); Phosphorus 5.6 mg/dL (2.5-4.5); Potassium 3.4 mmol/L (3.5-5.1); Sodium 138 mmol/L (136-145); Total Bilirubin 0.2 mg/dL (0.15-1.2); Total Protein 6.5 g/dL (6.6-8.7)
[2022-05-30 06:24] LABS: Blood Urea Nitrogen 84 mg/dL (6-20)
[2022-05-30] MEDS: levothyroxine 88 mcg Tablet PO (06:25)
[2022-05-30] MEDS: buPROPion XL (24 HR) 300 mg Tablet 150 MG PO (06:25)
[2022-05-30] MEDS: metoprolol tartrate 50 mg Tablet 25 MG PO ×2 (06:25→17:52)
[2022-05-30] MEDS: aspirin 81 mg EC Tablet PO (06:25)
[2022-05-30] MEDS: atorvastatin 40 mg Tablet PO (06:25)
--- NOTE | 2022-05-30 06:45 | PM.PN ---
Subjective Subjective: feels better after dialysis yesterday. dec sob. still w/ edema. Medications: Reviewed: Yes Medication Review Details: Current Medications Acetaminophen (Acetaminophen 325 Mg Tablet) 650 mg PO Q6H PRN PRN Reason: Mild/Mod Pain Or Temp >/= 101 Last Admin: 05/26/22 17:52 Dose: 650 mg Hydrocodone Bitart/Acetaminophen (Hydrocodone-Acetaminophen 5-325 Mg Tablet) 1 tab PO Q8H PRN PRN Reason: MODERATE PAIN Last Admin: 05/28/22 20:43 Dose: 1 tab Amlodipine Besylate (Amlodipine 5 Mg Tablet) 5 mg PO DAILY [facility] Last Admin: 05/20/22 09:24 Dose: 5 mg Apixaban (Apixaban 5 Mg Tablet) 2.5 mg PO BID@0900,2100 [facility] Last Admin: 05/27/22 08:24 Dose: 2.5 mg Aspirin (Aspirin 81 Mg Ec Tablet) 81 mg PO DAILY@0600 [facility] Last Admin: 05/30/22 06:25 Dose: 81 mg Atorvastatin Calcium (Atorvastatin 40 Mg Tablet) 40 mg PO QAM [facility] Last Admin: 05/30/22 06:25 Dose: 40 mg Budesonide (Budesonide 0.5 Mg/2 Ml Neb) 0.5 mg INHALATION BID.RESPIRATORY [facility] Last Admin: 05/29/22 21:01 Dose: Not Given Bupropion HCl (Bupropion Xl (24 Hr) 300 Mg Tablet) 150 mg PO QAM [facility] Last Admin: 05/30/22 06:25 Dose: 150 mg Buspirone HCl (Buspirone 10 Mg Tablet) 5 mg PO TID [facility] Last Admin: 05/29/22 21:12 Dose: 5 mg Capsaicin (Capsaicin 0.025% Cream 60 Gm) 1 applic TOPICAL QID PRN PRN Reason: PAIN Dextrose (Dextrose 50% Syringe 50 Ml) 25 ml IVP ONCE PRN; Protocol PRN Reason: hypoglycemia protocol Dextrose (Dextrose 50% Syringe 50 Ml) 50 ml IVP PRN PRN; Protocol PRN Reason: hypoglycemia protocol Furosemide (Furosemide 10 Mg/Ml Sdv 10ml) 80 mg IVP Q24H [facility] Last Admin: 05/29/22 11:03 Dose: Not Given Gabapentin (Gabapentin 100 Mg Capsule) 100 mg PO BID [facility] Last Admin: 05/29/22 17:21 Dose: 100 mg Glucagon (Glucagon 1 Mg/Ml Inj 1 Ml) 1 mg IM ONCE PRN; Protocol PRN Reason: Adult Acute Hypoglycemia Prot. Dextrose (D5w) 500 mls @ 100 mls/hr IV ONCE PRN; Protocol PRN Reason: Adult Acute Hypoglycemia Prot Iron Sucrose 200 mg/ Sodium (Chloride) 110 mls @ 220 mls/hr IV Q24H RANDY Stop: 05/31/22 09:14 Last Infusion: 05/29/22 11:09 Dose: Infused Insulin Glargine (Insulin Glargine 100 Units/1 Ml) 30 unit SUBCUT BEDTIME [facility] Last Admin: 05/29/22 21:11 Dose: 30 unit Insulin Human Lispro (Insulin Lispro 100 Unit/1 Ml) 0 unit SUBCUT WM&BEDTIME [facility]; Protocol Last Admin: 05/29/22 21:11 Dose: 4 unit Ipratropium [place] (Ipratropium 0.5 Mg/2.5 Ml Neb) 0.5 mg INHALATION Q6H.RESP [facility] Last Admin: 05/30/22 02:34 Dose: 0.5 mg Isosorbide Mononitrate (Isosorbide Mononitrate Er 30 Mg Tablet) 15 mg PO BID RANDY Last Admin: 05/29/22 17:21 Dose: 15 mg Levalbuterol HCl (Levalbuterol 0.63 Mg/3 Ml Neb) 0.63 mg INHALATION Q6H.RESP [facility] Last Admin: 05/30/22 02:34 Dose: 0.63 mg Levothyroxine Sodium (Levothyroxine 88 Mcg Tablet) 88 mcg PO QAM [facility] Last Admin: 05/30/22 06:25 Dose: 88 mcg Metolazone (Metolazone 5 Mg Tablet) 5 mg PO DAILY [facility] Last Admin: 05/29/22 09:03 Dose: 5 mg Metoprolol Tartrate (Metoprolol Tartrate 50 Mg Tablet) 25 mg PO BID@0600,1800 [facility] Last Admin: 05/30/22 06:25 Dose: 25 mg Nitroglycerin (Nitroglycerin 0.4 Mg Sublingual Tablet) 0.4 mg SUBLINGUAL Q5M PRN PRN Reason: Chest Pain Ondansetron HCl (Ondansetron 2 Mg/Ml Sdv 2 Ml) 4 mg IVP Q2M PRN PRN Reason: NAUSEA Pantoprazole Sodium (Pantoprazole 40 Mg Sdv) 40 mg IVP Q24H [facility] Last Admin: 05/30/22 01:23 Dose: 40 mg Ranolazine (Ranolazine (12hr) 500 Mg Tablet) 500 mg PO BID [facility] Last Admin: 05/29/22 17:21 Dose: 500 mg Ropinirole HCl (Ropinirole 0.25 Mg Tablet) 0.5 mg PO BEDTIME RANDY Last Admin: 05/29/22 21:11 Dose: 0.5 mg Trazodone HCl (Trazodone 100 Mg Tablet) 400 mg PO BEDTIME PRN PRN Reason: insomnia Last Admin: 05/28/22 20:43 Dose: 400 mg Vitals/I&O/Wt Last Vital Signs Temp 97.7 F 05/30/22 04:00 Pulse 58 L 05/30/22 04:00 Resp 14 05/30/22 04:00 BP 121/64 05/30/22 04:00 Pulse Ox 92 05/30/22 04:00 O2 Del Method 05/30/22 04:00 O2 Flow Rate 5 05/30/22 04:00 FiO2 50 05/27/22 11:51 05/29/22 05/29/22 05/30/22 14:59 22:59 06:59 Intake Total 370 / 370 856 / 1226 Output Total 3400 / 3400 600 / 4000 Balance 370 / 370 -2544 / -2174 -600 / -2774 Weight last 48 hrs Weight 106.821 kg Weight 107.95 kg Weight 109.134 kg Physical Exam Narrative: improved, less SOB, vs noted heent- nc/at, eomi neck supple lungs clear b/l heart reg abd soft, nt, +BS, has a PD catheter internally- not externalized yet ext + b/l edema. left leg red warm area w/ draining abscess neuro- a,a, o x 3, mild asterixis rt femoral dialysis catheter Urinary Catheter Management: Little: Cath Placed During This Visit: yes Reason for Continuing Indwelling Catheter: Accurate Measurement of Urinary Output in Critically Ill Patients Urinary Catheter Date of Insertion: 05/19/22 Data 05/29/22 04:50 05/30/22 04:22 A&P Assessment and plan (1) Stage 5 chronic kidney disease: 51 yr old man: 1. MRSA wound infection 2. CKD stage 5- from DM,CRS -pt consents to HD - cr stable w/ diuresis -replace k as needed -met alkalosis from diuretics - phos of 5.5- monitor, may need a binder -we need to externalize his PD catheter and place a permacath- Dr Saucedo will on Saturday -dec lasix to daily. hold norvasc and metolazone 2. anemia- iron sta 15.6%, ferritin 228- iv iron -hgb improving 3. DM control 4. htn- bp - apr meds meds reviewed -monitor vanco level- keep trough under 19 seen and examined w/ RN - telehealth visit time spent 25 minutes discussed w/ Dr Marino Plan as above- HD today Attestations Medical Necessity Statement*: chf, ckd stage 5 Time Spent in Patient Care: 16 - 35 minutes (>than 50% of time spent in counselling and/or direct pt care on unit). Coding Level of Care Code Acute Preschool Program Director for Aaron Irene Diagnoses Stage 5 chronic kidney disease N18.5
[2022-05-30 06:56] LABS: Glucose Point of Care 99 mg/dL (70-110)
[2022-05-30] MEDS: budesonide 0.5 mg/2 mL Neb INHALATION ×2 (08:40→20:44)
[2022-05-30] MEDS: FUROsemide 10 mg/mL SDV 10mL 40 MG IVP (08:49)
[2022-05-30] MEDS: ranolazine (12HR) 500 mg Tablet PO ×2 (08:50→17:51)
[2022-05-30] MEDS: isosorbide mononitrate ER 30 mg Tablet 15 MG PO ×2 (08:50→17:52)
[2022-05-30] MEDS: BuSPIRONE 10 mg Tablet 5 MG PO ×3 (08:50→22:03)
[2022-05-30] MEDS: gabapentin 100 mg Capsule PO ×2 (08:50→17:52)
[2022-05-30] MEDS: iron sucrose 200 MG in sodium chloride 0.9% (100 ml) 100 ML 220 MG IV (10:02)
[2022-05-30 12:05] LABS: Glucose Point of Care 228 mg/dL (70-110)
[2022-05-30] MEDS: heparin, porcine 1,000 unit/mL INJ 10 mL HE (12:13)
--- NOTE | 2022-05-30 12:38 | PM.PN ---
Subjective Subjective: No acute events overnight. Patient underwent first hemodialysis yesterday. Tolerated procedure well. States feeling better after the dialysis. Sitting up in chair today. Less dyspneic. On 4 to 5 L oxygen supplementation. Vitals/I&O/Wt Last Vital Signs Temp 97.4 F L 05/30/22 12:00 Pulse 61 05/30/22 12:00 Resp 18 05/30/22 12:00 BP 129/57 05/30/22 12:00 Pulse Ox 93 05/30/22 12:00 O2 Del Method 05/30/22 12:00 O2 Flow Rate 5 05/30/22 08:50 FiO2 50 05/27/22 11:51 05/29/22 05/30/22 05/30/22 22:59 06:59 14:59 Intake Total 856 / 1226 350 / 350 Output Total 3400 / 3400 600 / 4000 Balance -2544 / -2174 -600 / -2774 350 / 350 Weight last 48 hrs Weight 106.821 kg Weight 107.95 kg Weight 109.134 kg Physical Exam Const: COMMON NORMALS: no acute distress and patient oriented x3 HENMT: COMMON NORMALS: normocephalic HEAD & SCALP: normocephalic Eye: COMMON NORMALS: Equal, round and reactive pupils present and EOMs intact bilaterally PUPIL: Yes Equal, round and reactive pupils present Neck/C-Spine: COMMON NORMALS: no JVD Lymph: LYMPHATIC: no lymphadenopathy noted Resp: COMMON NORMALS: normal respiratory effort, No retractions, No use of accessory muscles and clear to auscultation bilaterally AUSCULTATION: clear to auscultation bilaterally Cardio: COMMON NORMALS: no JVD, regular rate, regular rhythm, S1 normal heart sound present and S2 normal heart sound present RATE: regular rate RHYTHM: regular rhythm HEART SOUNDS: S1 normal heart sound present and S2 normal heart sound present GI: COMMON NORMALS: Normal to inspection, nondistended, normoactive bowel sounds present, Soft to palpation, non-tender, no masses and no bruits PALPATION: Yes Soft to palpation Extremity: COMMON NORMALS: capillary refill normal, no clubbing, cyanosis or edema, no calf tenderness and no pedal edema Neuro: COMMON NORMALS: patient oriented x3, CN's II-XII intact bilaterally, moves all extremities and no focal motor deficits Psych: COMMON NORMALS: mental status grossly normal Skin: NARRATIVE SKIN EXAM: Bilateral lower extremity, fasciotomy scars Left lower extremity, area of cellulitis erythema, swelling, warmth measuring 3 x 30 cm round, area of abscess drainage, incision measuring 1 cm long, vertical, dressing on top Urinary Catheter Management: Little: Cath Placed During This Visit: yes Reason for Continuing Indwelling Catheter: Accurate Measurement of Urinary Output in Critically Ill Patients Urinary Catheter Date of Insertion: 05/19/22 Data 05/29/22 04:50 05/30/22 04:22 A&P Assessment and plan (1) Respiratory failure with hypoxia: Combination of mixed diastolic and systolic heart failure in setting of renal insufficiency requiring hemodialysis and aspiration pneumonia. Keep oxygen supplementation with saturation over 90%. BiPAP nightly and as needed. Appreciate nephrology recommendations on diuretic challenge with Lasix and metolazone for now. Renal function with minimal improvement, but with underlying CHF and renal compromise patient most likely needs hemodialysis. Patient is agreeable. Continue with hemodialysis through temporary cath in place. Dialysis sessions as per nephrology. Lasix and diuretic therapy as per nephrology. Currently on Lasix 40 mg IV daily. Metolazone stopped. Diet advanced as per speech recommendations. Aspiration precautions. Fluid restriction up to 1200 cc. Patient has history of 30 to 35% with diastolic dysfunction and regional wall motion abnormality. Strict input output charting, daily weights. Maintain Little. Appreciate CT chest results. PE unlikely. Switch anticoagulation back to Eliquis 2.5 mg twice daily. He has already finished course of antibiotics for aspiration pneumonia. Last dose of antibiotics on 05/29. Sputum culture negative except Lucy albicans in sputum which is most likely commensal. Respiratory viral panel negative. Incentive spirometry, flutter valve. (2) Chronic systolic heart failure: (3) CRF (chronic renal failure): (4) Acute kidney injury superimposed on CKD: Appreciate nephrology assessment, consideration of hemodialysis. Discussed with him risk of hemodynamic changes in setting of low EF. Anticoagulant is held. Patient agreeable. Patient had temporary catheter placed on 05/29. Patient already has a peritoneal catheter in place. Catheter is internalized. Discussed in detail with patient and patient's family. Patient would prefer to have hemodialysis going forward and not peritoneal dialysis. Discussed case in detail with nephrology and surgery along with case management. Plan for placement of permanent hemodialysis catheter and removal of peritoneal dialysis catheter on Saturday. Continue to hold home dose of Eliquis for now. No obstructive uropathy on kidney ultrasound. Medical reconciliation done and dose was changed as per renal functions (5) Anemia: Hemoglobin stable. No sign of retroperitoneal/psoas bleeding on CT. Follow-up Hemoccult. Continue PPI. Had some right lower quadrant/right flank pain yesterday,no acute pathology on CT. Not complaining of it today. No obvious bleeding. He is on anticoagulation. Does have underlying CKD. (6) Chest pain: Seen multiple times in the past for similar complaints. So far no additional chest pain. Multiple cardiac angiograms as per the chart with patent stents. Lexiscan stress test negative for any acute ischemia and consistent with myocardial scarring. Continue with aspirin, statin, Imdur, beta-zaira. (7) Cellulitis and abscess of left leg: Post I&D. Healing well. Erythema resolved. No drainage from wound. Small abrasion/erosion posterior lower leg, without drainage. Does have a bruise in the area, no significant swelling or fluctuance. Continue wound care. MRSA PCR positive. (8) 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 mellitus: Patient complaining of bilateral lower foot pain most likely related to neuropathy. Improved. Decreased gabapentin dose due to JESUS. Requip to 0.5 mg nightly. Decreased bupropion dose. Continue BuSpar. Celexa stopped. (9) Hypertension: Goal blood pressure less than 140/90 mmHg. 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 On hold currently for possible need of hemodialysis access Plan Asterixis: Noted mild degree of metabolic encephalopathy, asterixis. Secondary to uremia. He is also generally weak and deconditioned. Fall precautions. Up only with assistance. Pain in feet when standing: Dry cracked skin. emollient. Full code. Protonix for PUD prophylaxis Eliquis is suffice DVT prophylaxis. Currently on hold for procedure. Discharge planning: SNF for further rehabilitation as his is not able to take care of him at his home anymore. Patient has been accepted at [facility]. Awaiting prior authorization and placement of permanent dialysis access. Awaiting chair time as an outpatient as well. Case management on board. Attestations Medical Necessity Statement*: Requires further hospitalization for management of shortness of breath in setting of mixed heart failure, hemodialysis patient secondary to chronic renal failure while permanent dialysis access was achieved and safe discharge planning is sought. Time Spent in Patient Care: Greater than 35 minutes Coding Level of Care Code Acute Foreign Exchange Position Clerk for Aaron Irene Diagnoses Respiratory failure with hypoxia J96.91 Chronic systolic heart failure I50.22 CRF (chronic renal failure) N18.9 Acute kidney injury superimposed on CKD N17.9; N18.9 Anemia D64.9 Chest pain R07.9 Cellulitis and abscess of left leg L03.116; L02.416 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 mellitus E11.42 Hypertension I10 Chronic anticoagulation Z79.01
--- NOTE | 2022-05-30 15:01 | PM.PN ---
Subjective Subjective: Patient successfully underwent hemodialysis via temporary right femoral vein catheter yesterday Vitals/I&O/Wt Last Vital Signs Temp 97.4 F L 05/30/22 12:00 Pulse 61 05/30/22 12:00 Resp 18 05/30/22 12:00 BP 129/57 05/30/22 12:00 Pulse Ox 93 05/30/22 12:00 O2 Del Method 05/30/22 12:00 O2 Flow Rate 5 05/30/22 08:50 FiO2 50 05/27/22 11:51 05/30/22 05/30/22 05/30/22 06:59 14:59 22:59 Intake Total 470 / 470 Output Total 600 / 4000 Balance -600 / -2774 470 / 470 Weight last 48 hrs Weight 235 lb 8 oz Weight 237 lb 15.824 oz Weight 240 lb 9.6 oz Physical Exam Narrative: General: No acute distress, awake alert and oriented x3 Right groin catheter in place without erythema or exudate Urinary Catheter Management: Little: Cath Placed During This Visit: yes Reason for Continuing Indwelling Catheter: Accurate Measurement of Urinary Output in Critically Ill Patients Urinary Catheter Date of Insertion: 05/19/22 Data 05/29/22 04:50 05/30/22 04:22 A&P Assessment and plan (1) Stage 5 chronic kidney disease: Plan Planning for permacath placement, peritoneal dialysis catheter removal and temporary right femoral vein hemodialysis catheter removal on Saturday at 1230. The risks and benefits of the procedures, including but not limited to, bleeding, infection, infection requiring catheter removal antibiotic therapy and repeat surgery, damage to surrounding structures, scar, numbness, pain, pneumothorax requiring thoracostomy tube, were explained to the patient. He is understanding of the risks and wishes to proceed. Attestations Medical Necessity Statement*: Patient requires at least 2 more nights in the hospital for medical management, hemodilution and surgery on Saturday Coding Level of Care Code Acute Marketing Sales Manager for Aaron Irene Diagnoses Stage 5 chronic kidney disease N18.5
[2022-05-30 17:34] LABS: Glucose Point of Care 142 mg/dL (70-110)
[2022-05-30] MEDS: insulin lispro 100 unit/1 mL SUBCUT ×2 (17:52→22:05)
--- NOTE | 2022-05-30 19:45 | PC.HD ---
Pt had 2nd treatment today, this time with cleaning and fluid removal. Pt did well but right at end of treatment c/o nausea, BP 99/50. UF off and BP rechecked, down to 93/49 and pt still nauseated. NS 100 ml given and BP rechecked, 92/57. Additional 50 ml NS given and BP up to 118/67, nausea subsiding. Blood returned, BP 130/78 and feels much better. Net fluid removal 1869. Dr Villarreal ntfd without further orders. Upon return to his room, pt and asked to speak to Dr Villarreal as they had questions about plans. Dr Villarreal spoke with pt and via Facetime with questions answered.
[2022-05-30 21:27] LABS: Glucose Point of Care 207 mg/dL (70-110)
[2022-05-30] MEDS: ropinirole 0.25 mg Tablet 0.5 MG PO (22:03)
[2022-05-30] MEDS: HYDROcodone-acetaminophen 5-325 mg Tablet 1 TAB PO (22:04)
[2022-05-30] MEDS: insulin glargine 100 units/1 mL 30 UNIT SUBCUT (22:06)
[2022-05-30] MEDS: trazodone 100 mg Tablet 400 MG PO (22:28)
[2022-05-31] VITALS (13 sets, daily range): BP systolic 108–142; BP diastolic 49–83; PULSE 56–69; RESP 16–19; TEMP 35.7–36.8; O2SAT 94–96
[2022-05-31] MEDS: pantoprazole 40 mg SDV IVP (01:33)
[2022-05-31] MEDS: levalbuterol 0.63 mg/3 mL Neb INHALATION ×3 (02:39→20:10)
[2022-05-31] MEDS: ipratropium 0.5 mg/2.5 mL Neb INHALATION ×3 (02:39→20:10)
[2022-05-31 03:27] LABS: Alanine Aminotransferase 11 U/L (0-41); Albumin Level 3.4 g/dL (3.5-5.2); Alkaline Phosphatase 100 U/L (40-130); Anion Gap 18.3 (5-19); Aspartate Amino Transferase 14 U/L (0-40); Blood Urea Nitrogen 58 mg/dL (6-20); Calcium 8.4 mg/dL (8.5-10.5); Carbon Dioxide 27 mmol/L (22-29); Chloride 97 mmol/L (98-107); Globulin 3.4 g/dL (1.3-4.6); Glomerular Filtration Rate 14.9 mL/min (90-130); Glucose 120 mg/dL (65-115); Osmolality Calculated 303 mOsm/kg (285-295); Potassium 4.3 mmol/L (3.5-5.1); Sodium 138 mmol/L (136-145); Total Bilirubin 0.2 mg/dL (0.15-1.2); Total Protein 6.8 g/dL (6.6-8.7)
[2022-05-31 03:48] LABS: Creatinine Clr Calc Pharmacy 22.4954
[2022-05-31] MEDS: aspirin 81 mg EC Tablet PO (05:46)
[2022-05-31] MEDS: levothyroxine 88 mcg Tablet PO (05:46)
[2022-05-31] MEDS: buPROPion XL (24 HR) 300 mg Tablet 150 MG PO (05:46)
[2022-05-31] MEDS: atorvastatin 40 mg Tablet PO (05:47)
[2022-05-31 06:49] LABS: Glucose Point of Care 91 mg/dL (70-110)
--- NOTE | 2022-05-31 07:51 | PM.PN ---
Subjective Subjective: seen and examined. feels well. no n/v/f/c/palomo/d/leg pains improving. breathing and sob improving. Medications: Reviewed: Yes Medication Review Details: Current Medications Acetaminophen (Acetaminophen 325 Mg Tablet) 650 mg PO Q6H PRN PRN Reason: Mild/Mod Pain Or Temp >/= 101 Last Admin: 05/26/22 17:52 Dose: 650 mg Hydrocodone Bitart/Acetaminophen (Hydrocodone-Acetaminophen 5-325 Mg Tablet) 1 tab PO Q8H PRN PRN Reason: MODERATE PAIN Last Admin: 05/30/22 22:04 Dose: 1 tab Apixaban (Apixaban 5 Mg Tablet) 2.5 mg PO BID@0900,2100 [facility] Last Admin: 05/27/22 08:24 Dose: 2.5 mg Aspirin (Aspirin 81 Mg Ec Tablet) 81 mg PO DAILY@0600 [facility] Last Admin: 05/31/22 05:46 Dose: 81 mg Atorvastatin Calcium (Atorvastatin 40 Mg Tablet) 40 mg PO QAM [facility] Last Admin: 05/31/22 05:47 Dose: 40 mg Budesonide (Budesonide 0.5 Mg/2 Ml Neb) 0.5 mg INHALATION BID.RESPIRATORY [facility] Last Admin: 05/30/22 20:44 Dose: 0.5 mg Bupropion HCl (Bupropion Xl (24 Hr) 300 Mg Tablet) 150 mg PO QAM [facility] Last Admin: 05/31/22 05:46 Dose: 150 mg Buspirone HCl (Buspirone 10 Mg Tablet) 5 mg PO TID [facility] Last Admin: 05/30/22 22:03 Dose: 5 mg Capsaicin (Capsaicin 0.025% Cream 60 Gm) 1 applic TOPICAL QID PRN PRN Reason: PAIN Dextrose (Dextrose 50% Syringe 50 Ml) 25 ml IVP ONCE PRN; Protocol PRN Reason: hypoglycemia protocol Dextrose (Dextrose 50% Syringe 50 Ml) 50 ml IVP PRN PRN; Protocol PRN Reason: hypoglycemia protocol Furosemide (Furosemide 10 Mg/Ml Sdv 10ml) 40 mg IVP Q24H [facility] Last Admin: 05/30/22 08:49 Dose: 40 mg Gabapentin (Gabapentin 100 Mg Capsule) 100 mg PO BID [facility] Last Admin: 05/30/22 17:52 Dose: 100 mg Glucagon (Glucagon 1 Mg/Ml Inj 1 Ml) 1 mg IM ONCE PRN; Protocol PRN Reason: Adult Acute Hypoglycemia Prot. Dextrose (D5w) 500 mls @ 100 mls/hr IV ONCE PRN; Protocol PRN Reason: Adult Acute Hypoglycemia Prot Iron Sucrose 200 mg/ Sodium (Chloride) 110 mls @ 220 mls/hr IV Q24H [facility] Stop: 05/31/22 09:14 Last Infusion: 05/30/22 11:04 Dose: Infused Albumin Human (Albumin) 12.5 gm in 50 mls @ 60 mls/hr IV PRN PRN PRN Reason: Hypotension and/or symptomatic Insulin Glargine (Insulin Glargine 100 Units/1 Ml) 30 unit SUBCUT BEDTIME [facility] Last Admin: 05/30/22 22:06 Dose: 30 unit Insulin Human Lispro (Insulin Lispro 100 Unit/1 Ml) 0 unit SUBCUT WM&BEDTIME [facility]; Protocol Last Admin: 05/31/22 07:52 Dose: Not Given Ipratropium [place] (Ipratropium 0.5 Mg/2.5 Ml Neb) 0.5 mg INHALATION Q6H.RESP [facility] Last Admin: 05/31/22 02:39 Dose: 0.5 mg Isosorbide Mononitrate (Isosorbide Mononitrate Er 30 Mg Tablet) 15 mg PO BID [facility] Last Admin: 05/30/22 17:52 Dose: 15 mg Levalbuterol HCl (Levalbuterol 0.63 Mg/3 Ml Neb) 0.63 mg INHALATION Q6H.RESP [facility] Last Admin: 05/31/22 02:39 Dose: 0.63 mg Levothyroxine Sodium (Levothyroxine 88 Mcg Tablet) 88 mcg PO QAM [facility] Last Admin: 05/31/22 05:46 Dose: 88 mcg Metoprolol Tartrate (Metoprolol Tartrate 50 Mg Tablet) 25 mg PO BID@0600,1800 [facility] Last Admin: 05/31/22 05:19 Dose: Not Given Nitroglycerin (Nitroglycerin 0.4 Mg Sublingual Tablet) 0.4 mg SUBLINGUAL Q5M PRN PRN Reason: Chest Pain Ondansetron HCl (Ondansetron 2 Mg/Ml Sdv 2 Ml) 4 mg IVP Q2M PRN PRN Reason: NAUSEA Pantoprazole Sodium (Pantoprazole 40 Mg Sdv) 40 mg IVP Q24H [facility] Last Admin: 05/31/22 01:33 Dose: 40 mg Ranolazine (Ranolazine (12hr) 500 Mg Tablet) 500 mg PO BID [facility] Last Admin: 05/30/22 17:51 Dose: 500 mg Ropinirole HCl (Ropinirole 0.25 Mg Tablet) 0.5 mg PO BEDTIME [facility] Last Admin: 05/30/22 22:03 Dose: 0.5 mg Trazodone HCl (Trazodone 100 Mg Tablet) 400 mg PO BEDTIME PRN PRN Reason: insomnia Last Admin: 05/30/22 22:28 Dose: 400 mg Vitals/I&O/Wt Last Vital Signs Temp 97.7 F 05/31/22 04:00 Pulse 64 05/31/22 04:00 Resp 19 H 05/31/22 04:00 BP 136/83 05/31/22 04:00 Pulse Ox 95 05/31/22 04:00 O2 Del Method 05/31/22 02:48 O2 Flow Rate 4 05/31/22 02:48 FiO2 50 05/27/22 11:51 05/30/22 05/31/22 05/31/22 22:59 06:59 14:59 Intake Total 2090 / 2560 360 / 2920 Output Total 2780 / 2780 0 / 2780 Balance -690 / -220 360 / 140 Weight last 48 hrs Weight 104.236 kg Weight 105.5 kg Weight 106.821 kg Weight 107.95 kg Physical Exam Narrative: comfortable in bed, NARD vs noted heent- nc/at, eomi neck supple lungs clear b/l heart reg abd soft, nt, +BS, has a PD catheter internally- not externalized yet ext + b/l edema. left leg red warm area w/ draining abscess neuro- a,a, o x 3, no asterixis rt femoral dialysis catheter Urinary Catheter Management: Little: Cath Placed During This Visit: yes Reason for Continuing Indwelling Catheter: Accurate Measurement of Urinary Output in Critically Ill Patients Urinary Catheter Date of Insertion: 05/19/22 Data 05/29/22 04:50 05/31/22 02:34 A&P Assessment and plan (1) Stage 5 chronic kidney disease: 51 yr old man: 1. MRSA wound infection 2. CKD stage 5- from DM,CRS -pt consented to HD - phos improved to 5 w/ dialysis- monitor, may need a binder -we need to externalize his PD catheter and place a permacath- Dr Saucedo will on Saturday --for now will recommend HD at rehab 2- 3 / week until patiwent learns how to perform PD 2. anemia- iron sta 15.6%, ferritin 228- iv iron -hgb improving 3. DM control 4. htn- bp okay 5. CHF - as on dialysis, start Losartan meds reviewed -monitor vanco level- keep trough under 19 leg wound per medicine and surgery seen and examined w/ RN - telehealth visit time spent 30 minutes discussed w/ pt. discussed w/ pts yesterday Plan as above Attestations Medical Necessity Statement*: wound, CKD stage 5, chf Time Spent in Patient Care: 16 - 35 minutes (>than 50% of time spent in counselling and/or direct pt care on unit). Coding Level of Care Code Acute Levelman for Aaron Irene Diagnoses Stage 5 chronic kidney disease N18.5
[2022-05-31] MEDS: budesonide 0.5 mg/2 mL Neb INHALATION ×2 (08:15→20:10)
[2022-05-31] MEDS: sevelamer 800 mg Tablet PO ×3 (08:43→21:19)
[2022-05-31] MEDS: FUROsemide 10 mg/mL SDV 10mL 40 MG IVP (08:43)
[2022-05-31] MEDS: BuSPIRONE 10 mg Tablet 5 MG PO ×3 (08:43→21:17)
[2022-05-31] MEDS: ranolazine (12HR) 500 mg Tablet PO ×2 (08:43→17:11)
[2022-05-31] MEDS: iron sucrose 200 MG in sodium chloride 0.9% (100 ml) 100 ML 220 MG IV (08:44)
[2022-05-31] MEDS: gabapentin 100 mg Capsule PO ×2 (08:44→17:12)
--- NOTE | 2022-05-31 10:57 | PC.SOCIAL ---
IMM update IMM updated with patient. Verbalized an understanding. Copy Pg 2 provided. Initialled, dated, timed, and placed in chart.
--- NOTE | 2022-05-31 11:22 | P.PN_ITS ---
Subjective Subjective: No acute events overnight. Underwent extra session of dialysis yesterday. Tolerated well. Did have some nausea and vomiting post dietitian. Today on examination lying comfortably in bed and sleeping. Feeling better than before. Today down to 4 L saturating 95%. Vitals/I&O/Wt Last Vital Signs Temp 96.6 F L 05/31/22 08:00 Pulse 58 L 05/31/22 08:23 Resp 18 05/31/22 08:17 BP 119/59 05/31/22 08:00 Pulse Ox 95 05/31/22 08:17 O2 Del Method 05/31/22 08:17 O2 Flow Rate 4 05/31/22 08:17 FiO2 50 05/27/22 11:51 05/30/22 05/31/22 05/31/22 22:59 06:59 14:59 Intake Total 2090 / 2560 360 / 2920 230 / 230 Output Total 2780 / 2780 0 / 2780 Balance -690 / -220 360 / 140 230 / 230 Weight last 48 hrs Weight 104.236 kg Weight 105.5 kg Weight 106.821 kg Weight 107.95 kg Physical Exam Const: COMMON NORMALS: no acute distress and patient oriented x3 HENMT: COMMON NORMALS: normocephalic HEAD & SCALP: normocephalic Eye: COMMON NORMALS: Equal, round and reactive pupils present and EOMs intact bilaterally PUPIL: Yes Equal, round and reactive pupils present Neck/C-Spine: COMMON NORMALS: no JVD Lymph: LYMPHATIC: no lymphadenopathy noted Resp: COMMON NORMALS: normal respiratory effort, No retractions, No use of accessory muscles and clear to auscultation bilaterally AUSCULTATION: clear to auscultation bilaterally Cardio: COMMON NORMALS: no JVD, regular rate, regular rhythm, S1 normal heart sound present and S2 normal heart sound present RATE: regular rate RHYTHM: regular rhythm HEART SOUNDS: S1 normal heart sound present and S2 normal heart sound present GI: COMMON NORMALS: Normal to inspection, nondistended, normoactive bowel sounds present, Soft to palpation, non-tender, no masses and no bruits P ALPATION: Yes Soft to palpation Extremity: COMMON NORMALS: capillary refill normal, no clubbing, cyanosis or edema, no calf tenderness and no pedal edema Neuro: COMMON NORMALS: patient oriented x3, CN's II-XII intact bilaterally, moves all extremities and no focal motor deficits Psych: COMMON NORMALS: mental status grossly normal Skin: NARRATIVE SKIN EXAM: Bilateral lower extremity, fasciotomy scars Left lower extremity, area of cellulitis erythema, swelling, warmth measuring 3 x 30 cm round, area of abscess drainage, incision measuring 1 cm long, vertical, dressing on top Urinary Catheter Management: Little: Cath Placed During This Visit: yes Reason for Continuing Indwelling Catheter: Accurate Measurement of Urinary Output in Critically Ill Patients Urinary Catheter Date of Insertion: 05/19/22 Data 05/29/22 04:50 05/31/22 02:34 A&P Assessment and plan (1) Respiratory failure with hypoxia: Combination of mixed diastolic and systolic heart failure in setting of renal insufficiency requiring hemodialysis and aspiration pneumonia. Keep oxygen supplementation with saturation over 90%. BiPAP nightly and as needed. Appreciate nephrology recommendations on diuretic challenge with Lasix and metolazone for now. Renal function with minimal improvement, but with underlying CHF and renal compromise patient most likely needs hemodialysis. Patient is agreeable. Continue with hemodialysis through temporary cath in place. Dialysis sessions as per nephrology. Lasix and diuretic therapy as per nephrology. Currently on Lasix 40 mg IV daily. Metolazone stopped. Diet advanced as per speech recommendations. Aspiration precautions. Fluid restriction up to 1200 cc. Patient has history of 30 to 35% with diastolic dysfunction and regional wall motion abnormality. Strict input output charting, daily weights. Maintain Little. Appreciate CT chest results. PE unlikely. Switch anticoagulation back to Eliquis 2.5 mg twice daily. He has already finished course of antibiotics for aspiration pneumonia. Last dose of antibiotics on 05/29. Sputum culture negative except Lucy albicans in sputum which is most likely commensal. Respiratory viral panel negative. Incentive spirometry, flutter valve. (2) Chronic systolic heart failure: (3) CRF (chronic renal failure): (4) Acute kidney injury superimposed on CKD: Appreciate nephrology assessment, consideration of hemodialysis. Discussed with him risk of hemodynamic changes in setting of low EF. Anticoagulant is held. Patient agreeable. Patient had temporary catheter placed on 05/29. Patient already has a peritoneal catheter in place. Catheter is internalized. Discussed in detail with patient and patient's family. Patient would prefer to have hemodialysis going forward and not peritoneal dialysis. Discussed case in detail with nephrology and surgery along with case management. Plan for placement of permanent hemodialysis catheter and removal of peritoneal dialysis catheter on Saturday. Continue to hold home dose of Eliquis for now. No obstructive uropathy on kidney ultrasound. Medical reconciliation done and dose was changed as per renal functions (5) Anemia: Hemoglobin stable. No sign of retroperitoneal/psoas bleeding on CT. Follow-up Hemoccult. Continue PPI. Had some right lower quadrant/right flank pain yesterday,no acute pathology on CT. Not complaining of it today. No obvious bleeding. He is on anticoagulation. Does have underlying CKD. (6) Chest pain: Seen multiple times in the past for similar complaints. So far no additional chest pain. Multiple cardiac angiograms as per the chart with patent stents. Lexiscan stress test negative for any acute ischemia and consistent with myocardial scarring. Continue with aspirin, statin, Imdur, beta-zaiar. (7) Cellulitis and abscess of left leg: Post I&D. Healing well. Erythema resolved. No drainage from wound. Small abrasion/erosion posterior lower leg, without drainage. Does have a bruise in the area, no significant swelling or fluctuance. Continue wound care. MRSA PCR positive. (8) 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 mellitus: Patient complaining of bilateral lower foot pain most likely related to neuropathy. Improved. Decreased gabapentin dose due to JESUS. Requip to 0.5 mg nightly. Decreased bupropion dose. Continue BuSpar. Celexa stopped. (9) Hypertension: Goal blood pressure less than 140/90 mmHg. 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 On hold currently for possible need of hemodialysis access Plan Asterixis: Noted mild degree of metabolic encephalopathy, asterixis. Secondary to uremia. He is also generally weak and deconditioned. Fall precautions. Up only with assistance. Pain in feet when standing: Dry cracked skin. emollient. Full code. Protonix for PUD prophylaxis Eliquis is suffice DVT prophylaxis. Currently on hold for procedure. Plan for the day: N.p.o. after midnight for permacath placement and removal of PD catheter tomorro w. Plan for dialysis 3 times a week going forward. Monitor BMP daily. Continue with IV Lasix once daily. Continue to monitor blood pressures with goal less than 140/90 mmHg. Amlodipine discontinued yesterday. Continue physical therapy. Out of bed to chair for each meal. Awaiting safe discharge planning. Awaiting chair outpatient dialysis time. Discharge planning: SNF for further rehabilitation as his is not able to take care of him at his home anymore. Patient has been accepted at [facility]. Awaiting prior authorization and placement of permanent dialysis access. Awaiting chair time as an outpatient as well. Case management on board. Attestations Medical Necessity Statement*: Requires further hospitalization for management of acute hypoxia in setting of congestive heart failure in a patient with end- stage renal disease on hemodialysis while safe discharge planning and outpatient dialysis set up Time Spent in Patient Care: 16 - 35 minutes Coding Level of Care Code Acute Lead Pastor for Aaron Fwd Diagnoses Respiratory failure with hypoxia J96.91 Chronic systolic heart failure I50.22 CRF (chronic renal failure) N18.9 Acute kidney injury superimposed on CKD N17.9; N18.9 Anemia D64.9 Chest pain R07.9 Cellulitis and abscess of left leg L03.116; L02.416 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 mellitus E11.42 Hypertension I10 Chronic anticoagulation Z79.01
[2022-05-31 12:03] LABS: Glucose Point of Care 127 mg/dL (70-110)
[2022-05-31 17:11] LABS: Glucose Point of Care 190 mg/dL (70-110)
[2022-05-31] MEDS: metoprolol tartrate 50 mg Tablet 25 MG PO (17:11)
[2022-05-31] MEDS: insulin lispro 100 unit/1 mL SUBCUT ×2 (17:25→21:24)
[2022-05-31 20:48] LABS: Glucose Point of Care 253 mg/dL (70-110)
[2022-05-31] MEDS: ropinirole 0.25 mg Tablet 0.5 MG PO (21:18)
[2022-05-31] MEDS: insulin glargine 100 units/1 mL 30 UNIT SUBCUT (21:23)
[2022-05-31] MEDS: trazodone 100 mg Tablet 400 MG PO (22:06)
[2022-05-31] MEDS: HYDROcodone-acetaminophen 5-325 mg Tablet 1 TAB PO (22:06)
[2022-06-01] VITALS (23 sets, daily range): BP systolic 109–161; BP diastolic 49–86; PULSE 57–78; RESP 12–18; TEMP 35.5–36.9; O2SAT 93–99
[2022-06-01] MEDS: pantoprazole 40 mg SDV IVP (00:50)
[2022-06-01] MEDS: ipratropium 0.5 mg/2.5 mL Neb INHALATION ×3 (02:49→21:04)
[2022-06-01] MEDS: levalbuterol 0.63 mg/3 mL Neb INHALATION ×3 (02:49→21:04)
[2022-06-01] MEDS: buPROPion XL (24 HR) 300 mg Tablet 150 MG PO (05:05)
[2022-06-01] MEDS: atorvastatin 40 mg Tablet PO (05:05)
[2022-06-01] MEDS: levothyroxine 88 mcg Tablet PO (05:05)
[2022-06-01] MEDS: aspirin 81 mg EC Tablet PO (05:05)
[2022-06-01] MEDS: metoprolol tartrate 50 mg Tablet 25 MG PO (05:06)
[2022-06-01 05:10] LABS: Basophils # 0.1 10^3/uL (0.0-0.1); Basophils % 0.9 %; Eosinophils # 0.3 10^3/uL (0.0-0.8); Eosinophils % 2.5 %; Hematocrit 26.6 % (42.0-52.0); Hemoglobin 8.5 g/dL (11.7-16.6); Lymphocytes # 2.2 10^3/uL (0.8-4.8); Mean Corpuscular Hemoglobin 30.5 pg (28.0-34.0); Mean Corpuscular Volume 95.3 fl (80-94); Mean Platelet Volume 9.4 fL (7.4-10.4); Monocytes # 1.1 10^3/uL (0.2-0.9); Monocytes % 8.3 %; Neutrophils # 9.14 10^3/uL (1.8-7.7); Neutrophils % 69.5 %; Nucleated Red Blood Cells % 0 %; Platelet Count 468 10^3/cmm (130-400); Red Blood Count 2.79 10^6/uL (4.1-5.3); Red Cell Distribution Width 15.1 % (12.1-15.1); White Blood Count 13.1 10^3/uL (4.0-10.0)
[2022-06-01 05:43] LABS: Alanine Aminotransferase 9 U/L (0-41); Albumin Level 3.1 g/dL (3.5-5.2); Alkaline Phosphatase 95 U/L (40-130); Anion Gap 18.1 (5-19); Aspartate Amino Transferase 13 U/L (0-40); Blood Urea Nitrogen 70 mg/dL (6-20); Calcium 8.6 mg/dL (8.5-10.5); Carbon Dioxide 25 mmol/L (22-29); Chloride 96 mmol/L (98-107); Globulin 3.2 g/dL (1.3-4.6); Glomerular Filtration Rate 12.2 mL/min (90-130); Glucose 162 mg/dL (65-115); Magnesium 2.1 mg/dL (1.7-2.3); Osmolality Calculated 304 mOsm/kg (285-295); Potassium 4.1 mmol/L (3.5-5.1); Sodium 135 mmol/L (136-145); Total Bilirubin 0.2 mg/dL (0.15-1.2); Total Protein 6.3 g/dL (6.6-8.7)
[2022-06-01 06:40] LABS: Glucose Point of Care 187 mg/dL (70-110)
[2022-06-01] MEDS: losartan 50 mg Tablet 25 MG PO (08:25)
[2022-06-01] MEDS: gabapentin 100 mg Capsule PO (08:25)
[2022-06-01] MEDS: ranolazine (12HR) 500 mg Tablet PO (08:25)
[2022-06-01] MEDS: FUROsemide 10 mg/mL SDV 10mL 40 MG IVP (08:25)
[2022-06-01] MEDS: BuSPIRONE 10 mg Tablet 5 MG PO ×2 (08:25→20:35)
[2022-06-01] MEDS: budesonide 0.5 mg/2 mL Neb INHALATION ×2 (08:52→21:04)
--- NOTE | 2022-06-01 11:22 | PM.PN ---
Subjective Subjective: seen postop on dialysis. He has no new complaints. medicare contact specialist reports good flow via new tunneled dialysis catheter placement Vitals/I&O/Wt Last Vital Signs Temp 97.4 F L 06/01/22 08:00 Pulse 64 06/01/22 08:58 Resp 18 06/01/22 08:53 BP 151/55 06/01/22 08:25 Pulse Ox 97 06/01/22 08:58 O2 Del Method 06/01/22 08:53 O2 Flow Rate 3 06/01/22 08:53 FiO2 50 06/01/22 02:00 05/31/22 06/01/22 06/01/22 22:59 06:59 14:59 Intake Total 240 / 710 200 / 910 Output Total 350 / 350 Balance 240 / 710 -150 / 560 Weight last 48 hrs Weight 107.728 kg Weight 104.236 kg Weight 105.5 kg Physical Exam Const: COMMON NORMALS: no acute distress and alert Neuro: SENSORIUM/ORIENTATION: Yes alert Urinary Catheter Management: Brown: Cath Placed During This Visit: yes Reason for Continuing Indwelling Catheter: Other Urinary Catheter Date of Insertion: 05/19/22 Data 06/01/22 04:09 06/01/22 04:09 Other Labs: Ca 8.6, phos 6, Mg 2.1, albumin 3.1 CXR: Radiologist's impression: To the lumen dialysis catheter in place, transvenous right subclavian the tip of the catheter is at the atrial level. Accessed chemotherapy infusion port in place over the left chest with transvenous left subclavian vein catheter With the tip in the superior vena cava 2 cm proximal to the right dialysis catheter. A&P Assessment and plan (1) ESRD (end stage renal disease): seen via telemedicine with assistance of RN during dialysis Plan 1. ESRD due to diabetic nephropathy, hypertension. Last HD 05/30/22. Plan to continue HD. tunneled HD catheter placed today; PD catheter removed 2. Hypertension 3. Diabetes 4. Anemia, s/p IV iron load 5. Ischemic cardiomyopathy 6. Hyperphosphatemia; sevelemar with meals started Rec: HD 3x weekly, epogen and iron at dialysis. Next HD SaturdayJune 04. Remove brown catheter. Change furosemide to 80 mg po daily. Attestations Medical Necessity Statement*: per primary service Time Spent in Patient Care: 16 - 35 minutes Coding Level of Care Code Acute Code for Chg Fwd Exam Problem Focused Diagnoses ESRD (end stage renal disease) N18.6
--- NOTE | 2022-06-01 11:47 | ANES.PREANE2 ---
Pre-Anesthetic Assessment Height/Weight: Height 1.65 m Weight 107.728 kg Temp Pulse Resp BP Pulse Ox O2 Del Method O2 Flow Rate 97.4 F L 64 18 151/55 97 3 06/01/22 08:00 06/01/22 08:58 06/01/22 08:53 06/01/22 08:25 06/01/22 08:58 06/01/22 08:53 06/01/22 08:53 FiO2 50 06/01/22 02:00 Preop Diagnosis: Bleeding per rectum Operation Date: 06/01/22 12:50 Proposed Procedures p Dialysis Catheter Insertion(Not Applicable) - Efe Saucedo DO s Peritoneal Catheter Removal(Not Applicable) - Efe Saucedo DO Familial anesthetic complications: NOne Was Beta Sam taken within 24 hours: Yes Was Clonidine taken within 24 hours: N/A Last intake: ice chips at 1000 Social No alcohol and No tobacco Exam alert, oriented x 3, clear to auscultation bilaterally and regular rate & rhythm Airway Mallampati: Class III Dentition: false Pulmonary ON o2 CV/HEM Anemia, Congestive Heart Failure and Hypertension 05/11 perfusion scan IMPRESSIONS ?1.? Myocardial perfusion imaging revealing moderate area of persistent ?decreased tracer uptake in the inferior wall and all apical segments including ?the LV apex suggesting myocardial scarring, in the distribution of all the 3 ?coronary arteries. ?2.? Segmental wall motion analysis revealing multiple wall motion normalities ?as mentioned above. ?3.? LV ejection fraction is estimated to be 36%. ?4.? Moderately dilated LV cavity with an end-systolic volume of 125ml. ?Low probability for coronary ischemia, based on the above findings 2021 echo CONCLUSIONS ?Technically limited quality echocardiogram because of poor ?ultrasonic windows. ?LV systolic function is moderately reduced with EF of 35 to 40%. ?Regional wall motion abnormalities cannot be accurately assessed ?because of poor ultrasonic windows. ?Grade 1 diastolic dysfunction ?RV appears to be grossly hypokinetic. ?Mild tricuspid regurgitation ?Compared to prior echocardiogram from 2020, no significant ?changes are seen. sestamibi 2021 CONCLUSION: 1. No significant EKG changes with the LexiScan infusion 2. No LexiScan induced chest pain or cardiac arrhythmia 3. Normal blood pressure and heart rate response to Lexiscan infusion 4. Sestamibi/sestamibi perfusion scan pending; see separate report. Chronic Renal Failure Metabolic Diabetes Mellitus, Hyperlipidemia, Morbid Obesity and Thyroid Disease Anesthetic Plan ASA status: 4 Anesthesia: MAC Risk of > 500 ml blood loss (7ml/kg in children): No Medications/Allergies Home Medications Medication Instructions Recorded Confirmed Last Taken Type aspirin 81 mg tablet,delayed 81 mg PO DAILY@0600 06/01/19 05/16/22 05/05/22 History release dulaglutide 0.75 mg/0.5 mL 0.75 mg SUBCUT Q7D 06/01/19 05/16/22 05/05/22 History subcutaneous pen injector (Trulicity) multivitamin (Daily Multi-Vitamin 1 tab PO QPM 06/01/19 05/16/22 05/05/22 History tablet) cyclobenzaprine 10 mg tablet 10 mg PO TID PRN MUSCLE SPASMS 01/07/20 05/16/22 04/25/22 History insulin lispro 100 unit/mL See Rx Instructions .Route 09/25/20 05/16/22 04/25/22 History subcutaneous solution (Humalog .COMPLEX see pharmacy comments U-100 Insulin) nitroglycerin 0.4 mg sublingual 0.4 mg sublingual Q5M PRN Chest 10/10/20 05/16/22 04/25/22 Rx tablet (Nitrostat) Pain #25 tabs levothyroxine 88 mcg tablet 88 mcg PO QAM 02/09/21 05/16/22 05/05/22 History promethazine 25 mg tablet 25 mg PO Q6H PRN Pain 02/22/21 05/16/22 04/25/22 History amlodipine 5 mg tablet 5 mg PO DAILY #0 tabs 04/17/21 05/16/22 04/25/22 Rx metoprolol tartrate 50 mg tablet 25 mg PO BID@0600,1800 #0 tabs 04/17/21 05/16/22 04/25/22 Rx lidocaine 5 % topical patch 1 patch transdermal PRN PRN Pain 05/12/21 05/16/22 04/25/22 History isosorbide mononitrate 30 mg 30 mg PO BID@0600,1800 #180 tabs 05/22/21 05/16/22 04/25/22 Rx tablet,extended release 24 hr docusate sodium 100 mg capsule 100 mg PO BID #30 caps 06/15/21 05/16/22 04/25/22 Rx (Colace) apixaban 2.5 mg tablet (Eliquis) 2.5 mg PO BID 09/14/21 05/16/22 05/05/22 History insulin degludec 200 unit/mL (3 38 unit SUBCUT BEDTIME 12/11/21 05/16/22 05/05/22 History mL) subcutaneous pen (Tresiba FlexTouch U-200 insulin) atorvastatin 40 mg tablet 40 mg PO QAM #90 tabs 12/19/21 05/16/22 05/05/22 Rx ranolazine 500 mg tablet,extended 500 mg PO BID #180 tabs 01/02/22 05/16/22 05/05/22 Rx release,12 hr (Ranexa) bupropion HCl 300 mg 24 hr tablet, 300 mg PO QAM #30 tabs 03/01/22 05/16/22 05/05/22 Rx extended release (Wellbutrin XL) buspirone 5 mg tablet 5 mg PO TID #90 tabs 03/01/22 05/16/22 05/05/22 Rx citalopram 40 mg tablet 40 mg PO DAILY #30 tabs 03/01/22 05/16/22 04/25/22 Rx trazodone 100 mg tablet 400 mg PO BEDTIME PRN insomnia 03/01/22 05/16/22 04/25/22 Rx #120 tabs bumetanide 2 mg tablet 2 mg PO BID 30 days #60 tabs 05/11/22 05/16/22 05/05/22 Rx potassium chloride 20 mEq 10 meq PO DIRECTED 30 days #30 05/11/22 05/16/22 04/25/22 Rx tablet,extended release(part/cryst) tabs calcitriol 0.25 mcg capsule See Rx Instructions .Route .COMPLEX 05/16/22 05/16/22 Unknown History metolazone 5 mg tablet 5 mg PO EVERY OTHER DAY 05/16/22 05/16/22 Unknown History Allergies Allergy/AdvReac Type Severity Reaction Status Date / Time Iodinated Contrast Media Allergy Severe ALGY-Difficulty Verified 04/25/22 09:08 Breathing iodine Allergy Severe ALGY-Difficulty Verified 04/25/22 09:08 Breathing metoclopramide [From Reglan] Allergy Severe ALGY-Difficulty Verified 04/25/22 09:08 Breathing nalbuphine [From Nubain] Allergy Severe ADR-Diarrhe Verified 04/25/22 09:08 a naproxen [From Naprosyn] Allergy Severe ADR-Vomitin Verified 04/25/22 09:08 g Sulfa (Sulfonamide Allergy Severe ALGY-Difficulty Verified 04/25/22 09:08 Antibiotics) Breathing ketorolac Allergy Intermediate ADR-Nausea Verified 04/25/22 09:08 ondansetron [From Zofran] Allergy Intermediate ADR-Abdominal Verified 04/25/22 09:08 Pain prochlorperazine Allergy Intermediate ADR-Irritab Verified 04/25/22 09:08 [From Compazine] le codeine AdvReac Severe ALGY-Anaphy Verified 04/25/22 09:08 laxis haloperidol [From Haldol] AdvReac Intermediate ADR-Irritab Verified 04/25/22 09:08 le Current Medications Generic Name Dose Route Start Last Admin Trade Name Freq PRN Reason Stop Dose Admin Acetaminophen 650 mg 05/16/22 00:47 05/26/22 17:52 Acetaminophen 325 Mg Tablet PO 650 mg Q6H PRN Administration Mild/Mod Pain Or Temp >/= 101 Hydrocodone Bitart/Acetaminophen 1 tab 05/23/22 12:50 05/31/22 22:06 Hydrocodone-Acetaminophen 5-325 Mg Tablet PO 1 tab Q8H PRN Administration MODERATE PAIN Apixaban 2.5 mg 05/19/22 21:00 05/27/22 08:24 Apixaban 5 Mg Tablet PO 2.5 mg BID@0900,2100 RANDY Administration Aspirin 81 mg 05/16/22 06:00 06/01/22 05:05 Aspirin 81 Mg Ec Tablet PO 81 mg DAILY@0600 RANDY Administration Atorvastatin Calcium 40 mg 05/16/22 06:00 06/01/22 05:05 Atorvastatin 40 Mg Tablet PO 40 mg QAM RANDY Administration Budesonide 0.5 mg 05/18/22 08:00 06/01/22 08:52 Budesonide 0.5 Mg/2 Ml Neb INHALATION 0.5 mg BID.RESPIRATORY RANDY Administration Bupropion HCl 150 mg 05/22/22 06:00 06/01/22 05:05 Bupropion Xl (24 Hr) 300 Mg Tablet PO 150 mg QAM RANDY Administration Buspirone HCl 5 mg 05/18/22 21:00 06/01/22 08:25 Buspirone 10 Mg Tablet PO 5 mg TID RANDY Administration Furosemide 40 mg 05/30/22 08:00 06/01/22 08:25 Furosemide 10 Mg/Ml Sdv 10ml IVP 40 mg Q24H RANDY Administration Gabapentin 100 mg 05/22/22 09:00 06/01/22 08:25 Gabapentin 100 Mg Capsule PO 100 mg BID RANDY Administration Insulin Glargine 30 unit 05/17/22 21:00 05/31/22 21:23 Insulin Glargine 100 Units/1 Ml SUBCUT 30 unit BEDTIME RANDY Administration Insulin Human Lispro 0 unit 05/17/22 12:00 06/01/22 08:27 Insulin Lispro 100 Unit/1 Ml SUBCUT Not Given WM&BEDTIME ARNDY Protocol Ipratropium [place] 0.5 mg 05/18/22 14:00 06/01/22 08:52 Ipratropium 0.5 Mg/2.5 Ml Neb INHALATION 0.5 mg Q6H.RESP RANDY Administration Levalbuterol HCl 0.63 mg 05/20/22 20:00 06/01/22 08:52 Levalbuterol 0.63 Mg/3 Ml Neb INHALATION 0.63 mg Q6H.RESP RANDY Administration Levothyroxine Sodium 88 mcg 05/16/22 06:00 06/01/22 05:05 Levothyroxine 88 Mcg Tablet PO 88 mcg QAM RANDY Administration Losartan Potassium 25 mg 05/31/22 09:00 06/01/22 08:25 Losartan 50 Mg Tablet PO 25 mg DAILY RANDY Administration Metoprolol Tartrate 25 mg 05/16/22 06:00 06/01/22 05:06 Metoprolol Tartrate 50 Mg Tablet PO 25 mg BID@0600,1800 RANDY Administration Pantoprazole Sodium 40 mg 05/16/22 00:47 06/01/22 00:50 Pantoprazole 40 Mg Sdv IVP 40 mg Q24H RANDY Administration Ranolazine 500 mg 05/16/22 09:00 06/01/22 08:25 Ranolazine (12hr) 500 Mg Tablet PO 500 mg BID RANDY Administration Ropinirole HCl 0.5 mg 05/18/22 21:00 05/31/22 21:18 Ropinirole 0.25 Mg Tablet PO 0.5 mg BEDTIME RANDY Administration Sevelamer Carbonate 800 mg 05/31/22 09:00 06/01/22 08:30 Sevelamer 800 Mg Tablet PO Not Given TID [facility] Trazodone HCl 400 mg 05/16/22 00:47 05/31/22 22:06 Trazodone 100 Mg Tablet PO 400 mg BEDTIME PRN Administration insomnia Additional Medication Information Current Medications Acetaminophen (Acetaminophen 325 Mg Tablet) 650 mg PO Q6H PRN PRN Reason: Mild/Mod Pain Or Temp >/= 101 Last Admin: 05/26/22 17:52 Dose: 650 mg Hydrocodone Bitart/Acetaminophen (Hydrocodone-Acetaminophen 5-325 Mg Tablet) 1 tab PO Q8H PRN PRN Reason: MODERATE PAIN Last Admin: 05/30/22 22:04 Dose: 1 tab Apixaban (Apixaban 5 Mg Tablet) 2.5 mg PO BID@0900,2100 [facility] Last Admin: 05/27/22 08:24 Dose: 2.5 mg Aspirin (Aspirin 81 Mg Ec Tablet) 81 mg PO DAILY@0600 [facility] Last Admin: 05/31/22 05:46 Dose: 81 mg Atorvastatin Calcium (Atorvastatin 40 Mg Tablet) 40 mg PO QAM [facility] Last Admin: 05/31/22 05:47 Dose: 40 mg Budesonide (Budesonide 0.5 Mg/2 Ml Neb) 0.5 mg INHALATION BID.RESPIRATORY [facility] Last Admin: 05/30/22 20:44 Dose: 0.5 mg Bupropion HCl (Bupropion Xl (24 Hr) 300 Mg Tablet) 150 mg PO QAM [facility] Last Admin: 05/31/22 05:46 Dose: 150 mg Buspirone HCl (Buspirone 10 Mg Tablet) 5 mg PO TID [facility] Last Admin: 05/30/22 22:03 Dose: 5 mg Capsaicin (Capsaicin 0.025% Cream 60 Gm) 1 applic TOPICAL QID PRN PRN Reason: PAIN Dextrose (Dextrose 50% Syringe 50 Ml) 25 ml IVP ONCE PRN; Protocol PRN Reason: hypoglycemia protocol Dextrose (Dextrose 50% Syringe 50 Ml) 50 ml IVP PRN PRN; Protocol PRN Reason: hypoglycemia protocol Furosemide (Furosemide 10 Mg/Ml Sdv 10ml) 40 mg IVP Q24H [facility] Last Admin: 05/30/22 08:49 Dose: 40 mg Gabapentin (Gabapentin 100 Mg Capsule) 100 mg PO BID [facility] Last Admin: 05/30/22 17:52 Dose: 100 mg Glucagon (Glucagon 1 Mg/Ml Inj 1 Ml) 1 mg IM ONCE PRN; Protocol PRN Reason: Adult Acute Hypoglycemia Prot. Dextrose (D5w) 500 mls @ 100 mls/hr IV ONCE PRN; Protocol PRN Reason: Adult Acute Hypoglycemia Prot Iron Sucrose 200 mg/ Sodium (Chloride) 110 mls @ 220 mls/hr IV Q24H [facility] Stop: 05/31/22 09:14 Last Infusion: 05/30/22 11:04 Dose: Infused Albumin Human (Albumin) 12.5 gm in 50 mls @ 60 mls/hr IV PRN PRN PRN Reason: Hypotension and/or symptomatic Insulin Glargine (Insulin Glargine 100 Units/1 Ml) 30 unit SUBCUT BEDTIME [facility] Last Admin: 05/30/22 22:06 Dose: 30 unit Insulin Human Lispro (Insulin Lispro 100 Unit/1 Ml) 0 unit SUBCUT WM&BEDTIME [facility]; Protocol Last Admin: 05/31/22 07:52 Dose: Not Given Ipratropium [place] (Ipratropium 0.5 Mg/2.5 Ml Neb) 0.5 mg INHALATION Q6H.RESP [facility] Last Admin: 05/31/22 02:39 Dose: 0.5 mg Isosorbide Mononitrate (Isosorbide Mononitrate Er 30 Mg Tablet) 15 mg PO BID [facility] Last Admin: 05/30/22 17:52 Dose: 15 mg Levalbuterol HCl (Levalbuterol 0.63 Mg/3 Ml Neb) 0.63 mg INHALATION Q6H.RESP [facility] Last Admin: 05/31/22 02:39 Dose: 0.63 mg Levothyroxine Sodium (Levothyroxine 88 Mcg Tablet) 88 mcg PO QAM [facility] Last Admin: 05/31/22 05:46 Dose: 88 mcg Metoprolol Tartrate (Metoprolol Tartrate 50 Mg Tablet) 25 mg PO BID@0600,1800 [facility] Last Admin: 05/31/22 05:19 Dose: Not Given Nitroglycerin (Nitroglycerin 0.4 Mg Sublingual Tablet) 0.4 mg SUBLINGUAL Q5M PRN PRN Reason: Chest Pain Ondansetron HCl (Ondansetron 2 Mg/Ml Sdv 2 Ml) 4 mg IVP Q2M PRN PRN Reason: NAUSEA Pantoprazole Sodium (Pantoprazole 40 Mg Sdv) 40 mg IVP Q24H [facility] Last Admin: 05/31/22 01:33 Dose: 40 mg Ranolazine (Ranolazine (12hr) 500 Mg Tablet) 500 mg PO BID [facility] Last Admin: 05/30/22 17:51 Dose: 500 mg Ropinirole HCl (Ropinirole 0.25 Mg Tablet) 0.5 mg PO BEDTIME RANDY Last Admin: 05/30/22 22:03 Dose: 0.5 mg Trazodone HCl (Trazodone 100 Mg Tablet) 400 mg PO BEDTIME PRN PRN Reason: insomnia Last Admin: 05/30/22 22:28 Dose: 400 mg PFSH Anesthesia Medical History Acute kidney injury superimposed on CKD Acute on chronic congestive heart failure Alcohol use disorder, moderate, in sustained remission Anemia Atherosclerotic heart disease of [place] coronary artery with other forms of angina pectoris hx of CAD with prior stenting of proximal LAD, LCx, RCA Chronic anticoagulation Eliquis Chronic kidney disease -baseline Cr appears to be around 1.5 Chronic systolic heart failure Depression Diabetes A1c-7.6 (08/2019) DVT (deep venous thrombosis) (~03/2020) Proximal left subclavian, basilic and brachial veins, started eliquis this stay, felt present prior to admission Foot drop, left GERD (gastroesophageal reflux disease) H/O acute myocardial infarction H/O deep venous thrombosis developed compartment syndrome History of pulmonary embolism Hyperlipidemia Hypertension Hypothyroidism Ischemic cardiomyopathy Major depressive disorder, recurrent severe without psychotic features Onychodystrophy Osteoarthritis of spine Surgical History H/O colonoscopy (11/14/20) 08/2015 H/O esophagogastroduodenoscopy (11/14/20) 08/2015 H/O removal of testicle left H/O skin graft H/O vasectomy History of appendectomy 1995 History of coronary artery stent placement 5x History of excision of mass 06/08/2019: Subcutaneous mass on back History of inguinal hernia repair, bilateral 1999 History of removal of Port-a-Cath Hx of cholecystectomy Peritoneal dialysis catheter in situ (06/15/21) Port-A-Cath in place Family History Grandfather Cancer skin cancer Parkinson disease Brother Hypertension Father Heart disease Mother Hypertension Stroke Aneurysm Grandmother Aneurysm Other Crohn disease Denies family history of Anesthesia complication Bleeding disorder Social History Smoking and tobacco status: never smoked Second hand smoke exposure: No Smoking risk assessment/counseling performed?: No Alcohol intake: former Year of sobriety/quit date alcohol: 2015 Former alcohol use details: Only holidays Desire information about alcohol rehabilitation?: No Counseling given: No Desire information about substance/drug rehabilitation?: No Counseling given: No Lives independently: Yes Household members: significant other Marital status: Single Current occupational status: disabled History of recent travel: No Data Anesthesia 06/01/22 04:09 06/01/22 04:09 Short CBC 06/01/22 Range/Units 04:09 WBC 13.1 H (4.0-10.0) 10^3/uL Hgb 8.5 L (11.7-16.6) g/dL Hct 26.6 L (42.0-52.0) % MCV 95.3 H (80-94) fl Plt Count 468 H (130-400) 10^3/cmm Neut % (Auto) 69.5 % Neut # (Auto) 9.14 H (1.8-7.7) 10^3/uL BMP 05/31/22 06/01/22 02:34 04:09 Sodium 138 135 L Potassium 4.3 4.1 Chloride 97 L 96 L Carbon Dioxide 27 25 BUN 58 H 70 H Creatinine 4.2 H 5.0 H Glucose 120 H 162 H Calcium 8.4 L 8.6 Liver Function 05/31/22 06/01/22 Range/Units 02:34 04:09 Total Bilirubin 0.2 0.2 (0.15-1.2) mg/dL AST 14 13 (0-40) U/L ALT 11 9 (0-41) U/L Alkaline Phosphatase 100 95 (40-130) U/L Albumin 3.4 L 3.1 L (3.5-5.2) g/dL Cardiac Studies: Echocardiogram 05/10/22 Echocardiogram Limited Views 12/02/19 Echocardiogram Ultrasound 03/19/20 Sestamibi Stress Test (Cardiology) 05/16/22
[2022-06-01] MEDS: sodium chloride 0.9% 1,000 ML 30 ML IV (11:58)
[2022-06-01 12:07] LABS: Glucose Point of Care 104 mg/dL (70-110)
--- NOTE | 2022-06-01 12:36 | W.PM.OPSUD ---
Surgery/Procedure H&P Update DATE OF PROCEDURE: June 01, 2022 DATE H&P PERFORMED: 05/29/22 PREOP DIAGNOSIS: Bleeding per rectum PLANNED PROCEDURE: Operation Date: 06/01/22 12:50 Proposed Procedures p Dialysis Catheter Insertion(Not Applicable) - DO sonny Delgado Peritoneal Catheter Removal(Not Applicable) - Efe Saucedo DO
[2022-06-01] MEDS: ceFAZolin 2,000 MG in sodium chloride 0.9% (plus) 50 ML 100 MG IV (13:12)
--- NOTE | 2022-06-01 13:26 | SC_ITS ---
WS: [id number] C-ARM RADIOGRAPHS CHEST; 5 IMAGES HISTORY: Intraoperative imaging during Mediport revision. COMPARISON: 05/27/2022 Placement of a large-bore central line through the RIGHT subclavian. Also noted is a smaller bore LEF T subclavian Mediport catheter. SC/C-arm FL for CVA [id number] IMPRESSION: Intraoperative imaging during placement of a large-bore RIGHT subclavian centra l line.
[2022-06-01] MEDS: heparin, porcine 1,000 unit/mL INJ 10 mL 6000 UNIT HE (14:29)
--- NOTE | 2022-06-01 14:51 | PM.PN ---
Subjective Subjective: No acute events overnight. Patient remained hemodynamically stable and afebrile. Today morning seen working with physical therapy. Able to walk with a walker. Awaiting permanent Catheter Placement Today. He Is down to 3 L Saturating More Than 95%. Vitals/I&O/Wt Last Vital Signs Temp 97.4 F L 06/01/22 08:00 Pulse 64 06/01/22 08:58 Resp 18 06/01/22 08:53 BP 151/55 06/01/22 08:25 Pulse Ox 97 06/01/22 08:58 O2 Del Method 06/01/22 08:53 O2 Flow Rate 3 06/01/22 08:53 FiO2 50 06/01/22 02:00 05/31/22 06/01/22 06/01/22 22:59 06:59 14:59 Intake Total 240 / 710 200 / 910 50 / 50 Output Total 350 / 350 Balance 240 / 710 -150 / 560 50 / 50 Weight last 48 hrs Weight 107.728 kg Weight 104.236 kg Weight 105.5 kg Physical Exam Const: COMMON NORMALS: no acute distress and patient oriented x3 HENMT: COMMON NORMALS: normocephalic HEAD & SCALP: normocephalic Eye: COMMON NORMALS: Equal, round and reactive pupils present and EOMs intact bilaterally PUPIL: Yes Equal, round and reactive pupils present Neck/C-Spine: COMMON NORMALS: no JVD Lymph: LYMPHATIC: no lymphadenopathy noted Resp: COMMON NORMALS: normal respiratory effort, No retractions, No use of accessory muscles and clear to auscultation bilaterally AUSCULTATION: clear to auscultation bilaterally Cardio: COMMON NORMALS: no JVD, regular rate, regular rhythm, S1 normal heart sound present and S2 normal heart sound present RATE: regular rate RHYTHM: regular rhythm HEART SOUNDS: S1 normal heart sound present and S2 normal heart sound present GI: COMMON NORMALS: Normal to inspection, nondistended, normoactive bowel sounds present, Soft to palpation, non-tender, no masses and no bruits PALPATION: Yes Soft to palpation Extremity: COMMON NORMALS: capillary refill normal, no clubbing, cyanosis or edema, no calf tenderness and no pedal edema Neuro: COMMON NORMALS: patient oriented x3, CN's II-XII intact bilaterally, moves all extremities and no focal motor deficits Psych: COMMON NORMALS: mental status grossly normal Skin: NARRATIVE SKIN EXAM: Bilateral lower extremity, fasciotomy scars Left lower extremity, area of cellulitis erythema, swelling, warmth measuring 3 x 30 cm round, area of abscess drainage, incision measuring 1 cm long, vertical, dressing on top Urinary Catheter Management: Little: Cath Placed During This Visit: yes Reason for Continuing Indwelling Catheter: Other Urinary Catheter Date of Insertion: 05/19/22 Data 06/01/22 04:09 06/01/22 04:09 A&P Assessment and plan (1) Respiratory failure with hypoxia: Combination of mixed diastolic and systolic heart failure in setting of renal insufficiency requiring hemodialysis and aspiration pneumonia. Keep oxygen supplementation with saturation over 90%. BiPAP nightly and as needed. Appreciate nephrology recommendations on diuretic challenge with Lasix and metolazone for now. Renal function with minimal improvement, but with underlying CHF and renal compromise patient most likely needs hemodialysis. Patient is agreeable. Continue with hemodialysis through temporary cath in place. Dialysis sessions as per nephrology. Lasix and diuretic therapy as per nephrology. Currently on Lasix 40 mg IV daily. Metolazone stopped. Diet advanced as per speech recommendations. Aspiration precautions. Fluid restriction up to 1200 cc. Patient has history of 30 to 35% with diastolic dysfunction and regional wall motion abnormality. Strict input output charting, daily weights. Maintain Little. Appreciate CT chest results. PE unlikely. Switch anticoagulation back to Eliquis 2.5 mg twice daily. He has already finished course of antibiotics for aspiration pneumonia. Last dose of antibiotics on 05/29. Sputum culture negative except Lucy albicans in sputum which is most likely commensal. Respiratory viral panel negative. Incentive spirometry, flutter valve. (2) Chronic systolic heart failure: (3) CRF (chronic renal failure): (4) Acute kidney injury superimposed on CKD: Appreciate nephrology assessment, consideration of hemodialysis. Discussed with him risk of hemodynamic changes in setting of low EF. Anticoagulant is held. Patient agreeable. Patient had temporary catheter placed on 05/29. Patient already has a peritoneal catheter in place. Catheter is internalized. Discussed in detail with patient and patient's family. Patient would prefer to have hemodialysis going forward and not peritoneal dialysis. Discussed case in detail with nephrology and surgery along with case management. Plan for placement of permanent hemodialysis catheter and removal of peritoneal dialysis catheter on Saturday. Continue to hold home dose of Eliquis for now. No obstructive uropathy on kidney ultrasound. Medical reconciliation done and dose was changed as per renal functions (5) Anemia: Hemoglobin stable. No sign of retroperitoneal/psoas bleeding on CT. Follow-up Hemoccult. Continue PPI. Had some right lower quadrant/right flank pain yesterday,no acute pathology on CT. Not complaining of it today. No obvious bleeding. He is on anticoagulation. Does have underlying CKD. (6) Chest pain: Seen multiple times in the past for similar complaints. So far no additional chest pain. Multiple cardiac angiograms as per the chart with patent stents. Lexiscan stress test negative for any acute ischemia and consistent with myocardial scarring. Continue with aspirin, statin, Imdur, beta-zaira. (7) Cellulitis and abscess of left leg: Post I&D. Healing well. Erythema resolved. No drainage from wound. Small abrasion/erosion posterior lower leg, without drainage. Does have a bruise in the area, no significant swelling or fluctuance. Continue wound care. MRSA PCR positive. (8) 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 mellitus: Patient complaining of bilateral lower foot pain most likely related to neuropathy. Improved. Decreased gabapentin dose due to JESUS. Requip to 0.5 mg nightly. Decreased bupropion dose. Continue BuSpar. Celexa stopped. (9) Hypertension: Goal blood pressure less than 140/90 mmHg. 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 On hold currently for possible need of hemodialysis access Plan Asterixis: Noted mild degree of metabolic encephalopathy, asterixis. Secondary to uremia. He is also generally weak and deconditioned. Fall precautions. Up only with assistance. Pain in feet when standing: Dry cracked skin. emollient. Full code. Protonix for PUD prophylaxis Eliquis is suffice DVT prophylaxis. Currently on hold for procedure. Plan for the day: Permanent catheter placement on removal of PD today. Dialysis post Little catheter placement. Oxygen supplementation keeping saturation over 90%. Possible transfer to SNF on Saturday. Patient has a chair time. Restart Eliquis 2.5 mg twice daily from tomorrow morning. Discharge planning: SNF for further rehabilitation as his is not able to take care of him at his home anymore. Patient has been accepted at [facility]. Awaiting prior authorization and placement of permanent dialysis access. Awaiting chair time as an outpatient as well. Case management on board. Attestations Medical Necessity Statement*: Requires further hospitalization for management of hypoxia secondary to congestive heart failure in setting of end-stage renal disease requiring hemodialysis paise discharge planning is sought. Time Spent in Patient Care: 16 - 35 minutes Coding Level of Care Code Acute Code for Chg Fwd Diagnoses Respiratory failure with hypoxia J96.91 Chronic systolic heart failure I50.22 CRF (chronic renal failure) N18.9 Acute kidney injury superimposed on CKD N17.9; N18.9 Anemia D64.9 Chest pain R07.9 Cellulitis and abscess of left leg L03.116; L02.416 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 mellitus E11.42 Hypertension I10 Chronic anticoagulation Z79.01
--- NOTE | 2022-06-01 14:55 | PM.OP ---
Operative Report Date of procedure: June 01, 2022 Pre-op diagnosis: Preop Diagnosis end-stage renal disease Post-op diagnosis: same Procedure done: Right subclavian permacath placement Removal of buried peritoneal dialysis catheter Removal of right femoral vein temporary hemodialysis catheter Implants: Right subclavian permacath Specimens removed/disposition: None Surgeon: Efe Saucedo Anesthesia: MAC Estimated blood loss (mL): 20 Complications: None apparent Brief History: Is a very pleasant 52-year-old gentleman who is currently receiving hemodialysis via a right femoral vein temporary hemodialysis catheter. Permacath placement is indicated. He has a buried peritoneal dialysis catheter that needs to be removed as well. The risks and benefits of the procedures were explained and documented. Procedure: Patient was taken to the operating room and placed supine on the operating room table. All bony prominences were padded. She was given IV sedation and monitored throughout the case by the anesthesia personnel. SCDs were placed and turned on. The arms were tucked to the side. Patient received Ancef 2 g preoperatively IV. The bilateral chest wall was prepped and draped in usual sterile fashion using chlorhexidine base prep. Sterile drapes were applied. We did procedure pause prior to beginning. I attempted to access the right internal jugular vein under ultrasound guidance, but the wire bent and I moved to the right subclavian vein. An 18 gauge needle was placed in the right subclavian vein. Dark, nonpulsatile blood was aspirated. A guidewire was placed through the needle centrally toward the atrial/vena caval junction. Fluoroscopy visualized good placement. The needle was removed and the guidewire was clipped to the drape with a hemostat. Further local anesthetic was infiltrated in the soft tissues of the right chest wall and a #15 blade was used to make a vertical skin incision. A #11 blade was used to make a small skin leni around the guidewire insertion area. The permacath tubing was tunneled through the subcutaneous tissues up to the needle insertion location. Serial dilators were placed over the wire. A dilator with a peel-away sheath was placed over the guidewire and placed centrally. The inner cannula and the guidewire were removed, leaving the dilator sheath in place. The tip of the catheter was inserted through the peel-away sheath and the peel-away sheath removed in the standard fashion. There was good blood flow through both ports. Both ports were flushed with heparin saline and then strong heparin saline. Fluoroscopy confirmed the permacath tubing near the atrial/vena caval junction. Both skin incisions were thoroughly irrigated and suctioned dry. Meticulous hemostasis noted. Incisions were closed with Dermabond. 3-0 nylon was used to suture the permacath in place. Drapes were then removed and the abdomen was inspected prepped and draped in usual sterile fashion. 2% lidocaine with epinephrine was used to anesthetize the area over the buried peritoneal dialysis catheter. The previous incision was opened with a 15 blade scalpel. Blunt dissection was performed with hemostats until the catheter was identified. The catheter was then removed using steady traction until the cuffs broke loose and pulled out. Dermabond was placed over the incision. Next attention was brought to the right groin. The nylon used to sew the temporary hemodialysis catheter in place was cut. Patient was placed in Trendelenburg and the temporary hemodialysis catheter was removed. Pressure was held over the insertion site for 5 minutes. Hemostasis was noted. Sterile bandage was applied. Patient was awakened from anesthesia and transferred via her cart to the recovery room in stable condition. All needle, sponge, and instrument counts were correct per the operating personnel x2 counts.
--- NOTE | 2022-06-01 14:57 | XR_ITS ---
WS: [id number] XR chest 1V portable [id number] REASON FOR EXAM: Status post right subclavian permacath placement FINDINGS: To the lumen dialysis catheter in place, transvenous right subclavian the tip of the catheter is at t he atrial level. Accessed chemotherapy infusion port in place over the left chest with transvenous left subclavian vei n catheter With the tip in the superior vena cava 2 cm proximal to the right dialysis catheter. XR/XR chest 1V portable [id number] IMPRESSION: Right subclavian vein dialysis catheter in proper position.
--- NOTE | 2022-06-01 19:45 | ANE.PACU2 ---
Inpatient post-anesthesia follow up: Airway intact: Yes Vital signs: Temperature 97.3 F Pulse Rate 68 Respiratory Rate 16 Blood Pressure 132/77 Pulse Oximetry 96 Oxygen Delivery Me thod Nasal Cannula Oxygen Flow Rate 2 Fraction of Inspir ed Oxygen 50 Hydration adequate: Yes Nausea and vomiting: No Pain level: 1 Mental status: Baseline
[2022-06-01] MEDS: trazodone 100 mg Tablet 400 MG PO (20:35)
[2022-06-01] MEDS: sevelamer 800 mg Tablet PO (20:35)
[2022-06-01] MEDS: ropinirole 0.25 mg Tablet 0.5 MG PO (20:35)
[2022-06-01] MEDS: HYDROcodone-acetaminophen 5-325 mg Tablet 1 TAB PO (20:36)
[2022-06-01 21:38] LABS: Glucose Point of Care 83 mg/dL (70-110)
[2022-06-02] VITALS (12 sets, daily range): BP systolic 94–137; BP diastolic 53–79; PULSE 68–80; RESP 15–18; TEMP 36.3–37.1; O2SAT 90–95
[2022-06-02] MEDS: pantoprazole 40 mg SDV IVP ×2 (00:51→23:49)
[2022-06-02] MEDS: levalbuterol 0.63 mg/3 mL Neb INHALATION ×4 (02:57→21:27)
[2022-06-02] MEDS: ipratropium 0.5 mg/2.5 mL Neb INHALATION ×4 (02:57→21:27)
[2022-06-02 05:22] LABS: Basophils # 0.1 10^3/uL (0.0-0.1); Eosinophils # 0.2 10^3/uL (0.0-0.8); Eosinophils % 1.8 %; Hematocrit 26.2 % (42.0-52.0); Hemoglobin 8.4 g/dL (11.7-16.6); Lymphocytes # 1.6 10^3/uL (0.8-4.8); Lymphocytes % 15.9 %; Mean Corpuscular HGB Conc 32.1 g/dL (30.0-36.0); Mean Corpuscular Hemoglobin 30.5 pg (28.0-34.0); Mean Corpuscular Volume 95.3 fl (80-94); Mean Platelet Volume 9.1 fL (7.4-10.4); Monocytes # 0.9 10^3/uL (0.2-0.9); Monocytes % 9.1 %; Neutrophils # 7.03 10^3/uL (1.8-7.7); Neutrophils % 70.6 %; Nucleated Red Blood Cells % 0 %; Platelet Count 385 10^3/cmm (130-400); Red Blood Count 2.75 10^6/uL (4.1-5.3); Red Cell Distribution Width 15.3 % (12.1-15.1)
[2022-06-02] MEDS: levothyroxine 88 mcg Tablet PO (05:27)
[2022-06-02] MEDS: atorvastatin 40 mg Tablet PO (05:27)
[2022-06-02] MEDS: aspirin 81 mg EC Tablet PO (05:27)
[2022-06-02] MEDS: buPROPion XL (24 HR) 300 mg Tablet 150 MG PO (05:27)
[2022-06-02 06:05] LABS: Alanine Aminotransferase 10 U/L (0-41); Albumin Level 3.1 g/dL (3.5-5.2); Alkaline Phosphatase 98 U/L (40-130); Aspartate Amino Transferase 16 U/L (0-40); Blood Urea Nitrogen 39 mg/dL (6-20); Calcium 8.9 mg/dL (8.5-10.5); Carbon Dioxide 27 mmol/L (22-29); Chloride 97 mmol/L (98-107); Globulin 3.3 g/dL (1.3-4.6); Glomerular Filtration Rate 14.5 mL/min (90-130); Glucose 265 mg/dL (65-115); Magnesium 1.9 mg/dL (1.7-2.3); Osmolality Calculated 299 mOsm/kg (285-295); Phosphorus 4.3 mg/dL (2.5-4.5); Sodium 135 mmol/L (136-145); Total Bilirubin 0.2 mg/dL (0.15-1.2); Total Protein 6.4 g/dL (6.6-8.7)
[2022-06-02 06:51] LABS: Glucose Point of Care 200 mg/dL (70-110)
[2022-06-02] MEDS: budesonide 0.5 mg/2 mL Neb INHALATION ×2 (08:08→21:26)
[2022-06-02] MEDS: BuSPIRONE 10 mg Tablet 5 MG PO ×3 (08:51→20:49)
[2022-06-02] MEDS: FUROsemide 10 mg/mL SDV 10mL 40 MG IVP (08:51)
[2022-06-02] MEDS: gabapentin 100 mg Capsule PO ×2 (08:51→17:03)
[2022-06-02] MEDS: ranolazine (12HR) 500 mg Tablet PO ×2 (08:51→17:03)
[2022-06-02] MEDS: sevelamer 800 mg Tablet PO ×3 (08:51→20:49)
[2022-06-02] MEDS: insulin lispro 100 unit/1 mL SUBCUT ×2 (08:52→18:03)
[2022-06-02] MEDS: losartan 50 mg Tablet 25 MG PO (08:52)
--- NOTE | 2022-06-02 09:24 | PM.PN ---
Subjective Subjective: Patient resting comfortably in bed. He successfully underwent hemodialysis yesterday via his right subclavian permacath. Vitals/I&O/Wt Last Vital Signs Temp 97.4 F L 06/02/22 08:00 Pulse 69 06/02/22 08:14 Resp 16 06/02/22 08:09 BP 137/79 06/02/22 08:52 Pulse Ox 93 06/02/22 08:14 O2 Del Method 06/02/22 08:09 O2 Flow Rate 2 06/02/22 08:09 FiO2 50 06/01/22 02:00 06/01/22 06/02/22 06/02/22 22:59 06:59 14:59 Intake Total 1380 / 1430 Output Total 2820 / 2820 100 / 2920 Balance -1440 / -1390 -100 / -1490 Weight last 48 hrs Weight 224 lb 13.944 oz Weight 237 lb 8 oz Physical Exam Narrative: General: No acute distress, awake alert and oriented x3 Right subclavian permacath erythema or exudate Incisions intact without erythema or exudate Urinary Catheter Management: Little: Cath Placed During This Visit: yes Reason for Continuing Indwelling Catheter: Other Urinary Catheter Date of Insertion: 05/19/22 Data 06/02/22 05:03 06/02/22 05:03 A&P Assessment and plan (1) Stage 5 chronic kidney disease: Plan Right subclavian permacath in place and functioning General surgery will sign off Please reconsult if necessary Attestations Medical Necessity Statement*: Further hospitalization per hospitalist Coding Level of Care Code Acute Code for g Fwd Diagnoses Stage 5 chronic kidney disease N18.5
[2022-06-02 11:32] LABS: Glucose Point of Care 95 mg/dL (70-110)
--- NOTE | 2022-06-02 11:59 | PC.SOCIAL ---
IMM update pg 2 of IMM updated and reviewed w/ patient. Copy provided and Copy in chart dated, and initialed.
[2022-06-02 17:03] LABS: Glucose Point of Care 279 mg/dL (70-110)
[2022-06-02] MEDS: metoprolol tartrate 50 mg Tablet 25 MG PO (17:04)
--- NOTE | 2022-06-02 17:08 | PM.PN ---
Subjective Subjective: States that he is feeling much better. He would like to have his catheter removed if possible. He is eating and drinking well. Denies any pain at this time. Vitals/I&O/Wt Last Vital Signs Temp 97.6 F 06/02/22 12:00 Pulse 80 06/02/22 13:54 Resp 18 06/02/22 13:51 BP 109/53 06/02/22 12:00 Pulse Ox 95 06/02/22 13:51 O2 Del Method 06/02/22 13:51 O2 Flow Rate 2 06/02/22 13:51 FiO2 50 06/01/22 02:00 06/02/22 06/02/22 06/02/22 06:59 14:59 22:59 Intake Total 360 / 360 Output Total 100 / 2920 Balance -100 / -1490 360 / 360 Weight last 48 hrs Weight 224 lb 13.944 oz Weight 237 lb 8 oz Physical Exam Narrative: General: Cooperative patient in no apparent distress. Well developed. HEENT: Normocephalic, Atraumatic. External ears normal. Nasal passages patent without drainage. MMM. Heart: Regular rate and rhythm. Resp: Lungs clear to auscultation no respiratory distress, no use of accessory muscles. Abd: Soft, nontender, non-distended. Extremities: No edema. Skin: No rash or lesions on exposed areas. Urinary Catheter Management: Little: Cath Placed During This Visit: yes Reason for Continuing Indwelling Catheter: Other Urinary Catheter Date of Insertion: 05/19/22 Data 06/02/22 05:03 06/02/22 05:03 A&P Assessment and plan (1) Respiratory failure with hypoxia: Combination of mixed diastolic and systolic heart failure in setting of renal insufficiency requiring hemodialysis and aspiration pneumonia. Keep oxygen supplementation with saturation over 90%. BiPAP nightly and as needed. Appreciate nephrology recommendations on diuretic challenge with Lasix and metolazone for now. Renal function with minimal improvement, but with underlying CHF and renal compromise patient most likely needs hemodialysis. Patient is agreeable. Continue with hemodialysis through temporary cath in place. Dialysis sessions as per nephrology. Lasix and diuretic therapy as per nephrology. Currently on Lasix 40 mg IV daily. Metolazone stopped. Diet advanced as per speech recommendations. Aspiration precautions. Fluid restriction up to 1200 cc. Patient has history of 30 to 35% with diastolic dysfunction and regional wall motion abnormality. Strict input output charting, daily weights. Maintain Little. Appreciate CT chest results. PE unlikely. Switch anticoagulation back to Eliquis 2.5 mg twice daily. He has already finished course of antibiotics for aspiration pneumonia. Last dose of antibiotics on 05/29. Sputum culture negative except Lucy albicans in sputum which is most likely commensal. Respiratory viral panel negative. Incentive spirometry, flutter valve. (2) Chronic systolic heart failure: (3) CRF (chronic renal failure): (4) Acute kidney injury superimposed on CKD: Appreciate nephrology assessment, consideration of hemodialysis. Discussed with him risk of hemodynamic changes in setting of low EF. Anticoagulant is held. Patient agreeable. Patient had temporary catheter placed on 05/29. Patient already has a peritoneal catheter in place. Catheter is internalized. Discussed in detail with patient and patient's family. Patient would prefer to have hemodialysis going forward and not peritoneal dialysis. Discussed case in detail with nephrology and surgery along with case management. Plan for placement of permanent hemodialysis catheter and removal of peritoneal dialysis catheter on Saturday. Continue to hold home dose of Eliquis for now. No obstructive uropathy on kidney ultrasound. Medical reconciliation done and dose was changed as per renal functions (5) Anemia: Hemoglobin stable. No sign of retroperitoneal/psoas bleeding on CT. Follow-up Hemoccult. Continue PPI. Had some right lower quadrant/right flank pain yesterday,no acute pathology on CT. Not complaining of it today. No obvious bleeding. He is on anticoagulation. Does have underlying CKD. (6) Chest pain: Seen multiple times in the past for similar complaints. So far no additional chest pain. Multiple cardiac angiograms as per the chart with patent stents. Lexiscan stress test negative for any acute ischemia and consistent with myocardial scarring. Continue with aspirin, statin, Imdur, beta-zaira. (7) Cellulitis and abscess of left leg: Post I&D. Healing well. Erythema resolved. No drainage from wound. Small abrasion/erosion posterior lower leg, without drainage. Does have a bruise in the area, no significant swelling or fluctuance. Continue wound care. MRSA PCR positive. (8) 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 mellitus: Patient complaining of bilateral lower foot pain most likely related to neuropathy. Improved. Decreased gabapentin dose due to JESUS. Requip to 0.5 mg nightly. Decreased bupropion dose. Continue BuSpar. Celexa stopped. (9) Hypertension: Goal blood pressure less than 140/90 mmHg. 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 Eliquis was restarted. Plan Asterixis: Noted mild degree of metabolic encephalopathy, asterixis. Secondary to uremia. He is also generally weak and deconditioned. Fall precautions. Up only with assistance. Pain in feet when standing: Dry cracked skin. emollient. Full code. Protonix for PUD prophylaxis Eliquis is suffice DVT prophylaxis. Currently on hold for procedure. Plan for the day: Permanent catheter placement on removal of PD today. Dialysis post Little catheter placement. Will discontinue Little catheter at this time. Continue oxygen supplementation as needed to maintain saturation over 90%. Possible transfer to SNF on Saturday. Patient has a chair time. Continue Eliquis twice daily. Discharge planning: SNF for further rehabilitation as his is not able to take care of him at his home anymore. Patient has been accepted at [facility]. Awaiting prior authorization and placement of permanent dialysis access. Awaiting chair time as an outpatient as well. Case management on board. Attestations Medical Necessity Statement*: Patient will need continued hospitalization for dialysis, monitoring of his catheter placement, and oxygen supplementation. Time Spent in Patient Care: Greater than 35 minutes Coding Level of Care Code Acute Code for Chg Fwd Diagnoses Respiratory failure with hypoxia J96.91 Chronic systolic heart failure I50.22 CRF (chronic renal failure) N18.9 Acute kidney injury superimposed on CKD N17.9; N18.9 Anemia D64.9 Chest pain R07.9 Cellulitis and abscess of left leg L03.116; L02.416 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 mellitus E11.42 Hypertension I10 Chronic anticoagulation Z79.01
[2022-06-02 20:39] LABS: Glucose Point of Care 116 mg/dL (70-110)
[2022-06-02] MEDS: ropinirole 0.25 mg Tablet 0.5 MG PO (20:49)
[2022-06-02] MEDS: HYDROcodone-acetaminophen 5-325 mg Tablet 1 TAB PO (20:56)
[2022-06-02] MEDS: trazodone 100 mg Tablet 400 MG PO (20:57)
[2022-06-02] MEDS: insulin glargine 100 units/1 mL 30 UNIT SUBCUT (21:05)
[2022-06-03] VITALS (12 sets, daily range): BP systolic 94–153; BP diastolic 41–81; PULSE 4–77; RESP 14–18; TEMP 36–36.7; O2SAT 90–95
[2022-06-03 04:47] LABS: Basophils # 0.1 10^3/uL (0.0-0.1); Basophils % 1.2 %; Eosinophils # 0.2 10^3/uL (0.0-0.8); Eosinophils % 2.1 %; Hematocrit 25.6 % (42.0-52.0); Lymphocytes # 2.3 10^3/uL (0.8-4.8); Lymphocytes % 19.3 %; Mean Corpuscular HGB Conc 31.3 g/dL (30.0-36.0); Mean Corpuscular Hemoglobin 30.4 pg (28.0-34.0); Mean Corpuscular Volume 97.3 fl (80-94); Mean Platelet Volume 9.1 fL (7.4-10.4); Monocytes # 1.1 10^3/uL (0.2-0.9); Monocytes % 9.7 %; Neutrophils # 7.71 10^3/uL (1.8-7.7); Neutrophils % 66.2 %; Nucleated Red Blood Cells % 0 %; Platelet Count 353 10^3/cmm (130-400); Red Blood Count 2.63 10^6/uL (4.1-5.3); White Blood Count 11.6 10^3/uL (4.0-10.0)
[2022-06-03] MEDS: buPROPion XL (24 HR) 300 mg Tablet 150 MG PO (05:56)
[2022-06-03] MEDS: levothyroxine 88 mcg Tablet PO (05:57)
[2022-06-03] MEDS: atorvastatin 40 mg Tablet PO (05:57)
[2022-06-03] MEDS: aspirin 81 mg EC Tablet PO (05:57)
[2022-06-03] MEDS: HYDROcodone-acetaminophen 5-325 mg Tablet 1 TAB PO (06:04)
[2022-06-03 06:19] LABS: Alanine Aminotransferase < 5 U/L (0-41); Albumin Level 3.1 g/dL (3.5-5.2); Alkaline Phosphatase 84 U/L (40-130); Anion Gap 18.8 (5-19); Aspartate Amino Transferase 12 U/L (0-40); Blood Urea Nitrogen 48 mg/dL (6-20); Calcium 8.6 mg/dL (8.5-10.5); Carbon Dioxide 22 mmol/L (22-29); Chloride 94 mmol/L (98-107); Glomerular Filtration Rate 11.1 mL/min (90-130); Glucose 140 mg/dL (65-115); Magnesium 2.1 mg/dL (1.7-2.3); Osmolality Calculated 287 mOsm/kg (285-295); Phosphorus 5.1 mg/dL (2.5-4.5); Potassium 3.8 mmol/L (3.5-5.1); Sodium 131 mmol/L (136-145); Total Bilirubin 0.2 mg/dL (0.15-1.2); Total Protein 6.1 g/dL (6.6-8.7)
[2022-06-03 06:30] LABS: Glucose Point of Care 146 mg/dL (70-110)
--- NOTE | 2022-06-03 06:51 | PM.PN ---
Subjective Subjective: feels better. had femoral dialysis catheter removed, PD catheter removed. new right neck permacath placed on 06/01/22- works well. still some SOB. weak., MS and appetite improving Medications: Reviewed: Yes Medication Review Details: Current Medications Acetaminophen (Acetaminophen 325 Mg Tablet) 650 mg PO Q6H PRN PRN Reason: Mild/Mod Pain Or Temp >/= 101 Last Admin: 05/26/22 17:52 Dose: 650 mg Hydrocodone Bitart/Acetaminophen (Hydrocodone-Acetaminophen 5-325 Mg Tablet) 1 tab PO Q8H PRN PRN Reason: MODERATE PAIN Last Admin: 06/03/22 06:04 Dose: 1 tab Albuterol Sulfate (Albuterol 2.5 Mg/3 Ml Neb) 2.5 mg INHALATION ONCE PRN PRN Reason: WHEEZING Apixaban (Apixaban 5 Mg Tablet) 2.5 mg PO BID@0900,2100 [facility] Last Admin: 05/27/22 08:24 Dose: 2.5 mg Aspirin (Aspirin 81 Mg Ec Tablet) 81 mg PO DAILY@0600 [facility] Last Admin: 06/03/22 05:57 Dose: 81 mg Atorvastatin Calcium (Atorvastatin 40 Mg Tablet) 40 mg PO QAM [facility] Last Admin: 06/03/22 05:57 Dose: 40 mg Budesonide (Budesonide 0.5 Mg/2 Ml Neb) 0.5 mg INHALATION BID.RESPIRATORY [facility] Last Admin: 06/02/22 21:26 Dose: 0.5 mg Bupropion HCl (Bupropion Xl (24 Hr) 300 Mg Tablet) 150 mg PO QAM [facility] Last Admin: 06/03/22 05:56 Dose: 150 mg Buspirone HCl (Buspirone 10 Mg Tablet) 5 mg PO TID [facility] Last Admin: 06/02/22 20:49 Dose: 5 mg Capsaicin (Capsaicin 0.025% Cream 60 Gm) 1 applic TOPICAL QID PRN PRN Reason: PAIN Dextrose (Dextrose 50% Syringe 50 Ml) 25 ml IVP ONCE PRN; Protocol PRN Reason: hypoglycemia protocol Dextrose (Dextrose 50% Syringe 50 Ml) 50 ml IVP PRN PRN; Protocol PRN Reason: hypoglycemia protocol Famotidine (Famotidine 20 Mg/2 Ml Inj) 20 mg IVP ONCE PRN PRN Reason: HEARTBURN Fentanyl (Fentanyl 50 Mcg/Ml Inj 2ml) 50 mcg IVP Q10M PRN PRN Reason: Preop Pain Fentanyl (Fentanyl 50 Mcg/Ml Inj 2ml) 100 mcg IVP ONCE PRN PRN Reason: Per anesthesia for block Furosemide (Furosemide 10 Mg/Ml Sdv 10ml) 40 mg IVP Q24H [facility] Last Admin: 06/02/22 08:51 Dose: 40 mg Gabapentin (Gabapentin 100 Mg Capsule) 100 mg PO BID [facility] Last Admin: 06/02/22 17:03 Dose: 100 mg Glucagon (Glucagon 1 Mg/Ml Inj 1 Ml) 1 mg IM ONCE PRN; Protocol PRN Reason: Adult Acute Hypoglycemia Prot. Hydromorphone HCl (Hydromorphone 1 Mg/Ml Inj 1 Ml) 0.4 mg IVP Q4H PRN PRN Reason: SEVERE pain Dextrose (D5w) 500 mls @ 100 mls/hr IV ONCE PRN; Protocol PRN Reason: Adult Acute Hypoglycemia Prot Sodium Chloride (Sodium Chloride 0.9%) 500 mls @ 999 mls/hr IV .Q31M PRN PRN Reason: HYPOTENSION Insulin Glargine (Insulin Glargine 100 Units/1 Ml) 30 unit SUBCUT BEDTIME [facility] Last Admin: 06/02/22 21:05 Dose: 30 unit Insulin Human Lispro (Insulin Lispro 100 Unit/1 Ml) 0 unit SUBCUT WM&BEDTIME [facility]; Protocol Last Admin: 06/02/22 21:00 Dose: Not Given Ipratropium [place] (Ipratropium 0.5 Mg/2.5 Ml Neb) 0.5 mg INHALATION Q6H.RESP [facility] Last Admin: 06/03/22 03:03 Dose: Not Given Ipratropium [place] (Ipratropium 0.5 Mg/2.5 Ml Neb) 0.5 mg INHALATION ONCE PRN PRN Reason: WHEEZING Levalbuterol HCl (Levalbuterol 0.63 Mg/3 Ml Neb) 0.63 mg INHALATION Q6H.RESP [facility] Last Admin: 06/03/22 03:03 Dose: Not Given Levothyroxine Sodium (Levothyroxine 88 Mcg Tablet) 88 mcg PO QAM [facility] Last Admin: 06/03/22 05:57 Dose: 88 mcg Losartan Potassium (Losartan 50 Mg Tablet) 25 mg PO DAILY [facility] Last Admin: 06/02/22 08:52 Dose: 25 mg Metoclopramide HCl (Metoclopramide 5 Mg/Ml Sdv 2 Ml) 10 mg IVP ONCE PRN PRN Reason: N/V if zofran ineffective Metoprolol Tartrate (Metoprolol Tartrate 50 Mg Tablet) 25 mg PO BID@0600,1800 [facility] Last Admin: 06/03/22 06:01 Dose: Not Given Midazolam HCl (Midazolam 1 Mg/Ml Inj 2 Ml) 2 mg IVP Q5M PRN PRN Reason: Preop Anxiety Midazolam HCl (Midazolam 1 Mg/Ml Inj 5 Ml) 5 mg IVP ONCE PRN PRN Reason: Per anesthesia for block Morphine Sulfate (Morphine 4 Mg/Ml Sdv 1 Ml) 0 mg IVP Q5M PRN PRN Reason: Breakthrough Pain PACU PhaseII Nitroglycerin (Nitroglycerin 0.4 Mg Sublingual Tablet) 0.4 mg SUBLINGUAL Q5M PRN PRN Reason: Chest Pain Ondansetron HCl (Ondansetron 2 Mg/Ml Sdv 2 Ml) 4 mg IVP Q2M PRN PRN Reason: NAUSEA Ondansetron HCl (Ondansetron 2 Mg/Ml Sdv 2 Ml) 4 mg IVP Q5M PRN PRN Reason: NAUSEA AND VOMITING Pantoprazole Sodium (Pantoprazole 40 Mg Sdv) 40 mg IVP Q24H [facility] Last Admin: 06/02/22 23:49 Dose: 40 mg Ranolazine (Ranolazine (12hr) 500 Mg Tablet) 500 mg PO BID [facility] Last Admin: 06/02/22 17:03 Dose: 500 mg Ropinirole HCl (Ropinirole 0.25 Mg Tablet) 0.5 mg PO BEDTIME [facility] Last Admin: 06/02/22 20:49 Dose: 0.5 mg Scopolamine (Scopolamine 1.5 Patch) 1 patch TRANSDERMA ONCE PRN PRN Reason: Nausea/ Vomiting Prophylaxis Sevelamer Carbonate (Sevelamer 800 Mg Tablet) 800 mg PO TID [facility] Last Admin: 06/02/22 20:49 Dose: 800 mg Trazodone HCl (Trazodone 100 Mg Tablet) 400 mg PO BEDTIME PRN PRN Reason: insomnia Last Admin: 06/02/22 20:57 Dose: 400 mg Vitals/I&O/Wt Last Vital Signs Temp 97.9 F 06/03/22 04:00 Pulse 66 06/03/22 04:00 Resp 16 06/03/22 04:00 BP 104/63 06/03/22 04:00 Pulse Ox 90 06/03/22 04:00 O2 Del Method 06/03/22 03:03 O2 Flow Rate 1.5 06/03/22 03:03 FiO2 50 06/01/22 02:00 06/02/22 06/02/22 06/03/22 14:59 22:59 06:59 Intake Total 360 / 360 237 / 597 120 / 717 Output Total 150 / 150 350 / 500 Balance 360 / 360 87 / 447 -230 / 217 Weight last 48 hrs Weight 106.322 kg Weight 102 kg Physical Exam Narrative: comfortable in bed, NARD vs noted heent- nc/at, eomi neck supple- rt IJ PErmacath lungs clear b/l heart reg abd soft, nt, +BS, PD catheter removed- site c/d/i ext -dec b/l edema. left leg red warm area w/ draining abscess neuro- a,a, o x 3, no asterixis no brown Urinary Catheter Management: Brown: Cath Placed During This Visit: yes Reason for Continuing Indwelling Catheter: Other Urinary Catheter Date of Insertion: 05/19/22 Data 06/03/22 04:35 06/03/22 04:35 A&P Assessment and plan (1) ESRD (end stage renal disease): seen via telemedicine with assistance of RN during dialysis Plan 1. ESRD due to diabetic nephropathy, hypertension. Last HD 06/01/22. Plan to continue HD. tunneled HD catheter placed and PD catheter removed on 06/01/22 -repeat HD today or tomorrow morning based on nurse availability 2. mixed CHF systolic and diastolic- EF 30-35% use ARB 3. MRSA wound infection 4. Diabetes mellitus per medicine 5. Anemia, s/p IV iron load-use JENNIFER 6. Hyperphosphatemia; sevelemar with meals started seen and examined w/ RN- telehealth visit time spent 30 minutes Attestations Medical Necessity Statement*: per medicine Time Spent in Patient Care: 16 - 35 minutes (>than 50% of time spent in counselling and/or direct pt care on unit). Coding Level of Care Code Acute Code for Chg Fwd Diagnoses ESRD (end stage renal disease) N18.6
[2022-06-03] MEDS: insulin lispro 100 unit/1 mL SUBCUT (10:30)
[2022-06-03] MEDS: sevelamer 800 mg Tablet PO ×3 (10:31→22:12)
[2022-06-03] MEDS: gabapentin 100 mg Capsule PO ×2 (10:31→18:58)
[2022-06-03] MEDS: losartan 50 mg Tablet 25 MG PO (10:31)
[2022-06-03] MEDS: BuSPIRONE 10 mg Tablet 5 MG PO ×3 (10:31→22:09)
[2022-06-03] MEDS: ranolazine (12HR) 500 mg Tablet PO ×2 (10:31→18:58)
[2022-06-03 12:11] LABS: Glucose Point of Care 107 mg/dL (70-110)
[2022-06-03] MEDS: ipratropium 0.5 mg/2.5 mL Neb INHALATION ×2 (13:42→21:08)
[2022-06-03] MEDS: levalbuterol 0.63 mg/3 mL Neb INHALATION ×2 (13:42→21:09)
--- NOTE | 2022-06-03 18:09 | PM.PN ---
Subjective Subjective: Reports feeling better today than he has in quite some time. Says that the dialysis has really helped with his overall energy level, strength and pain. He denies any pain at this time. He has not had much urine output since yesterday. Says that he was able to void a small amount this morning. Denies problems with bowel movements. Medications: Reviewed: Yes Vitals/I&O/Wt Last Vital Signs Temp 97.5 F L 06/03/22 14:50 Pulse 70 06/03/22 14:50 Resp 16 06/03/22 14:50 BP 103/41 06/03/22 14:50 Pulse Ox 93 06/03/22 13:43 O2 Del Method 06/03/22 13:43 O2 Flow Rate 1.5 06/03/22 13:43 FiO2 50 06/01/22 02:00 06/03/22 06/03/22 06/03/22 06:59 14:59 22:59 Intake Total 120 / 717 480 / 480 Output Total 350 / 500 Balance -230 / 217 480 / 480 Weight last 48 hrs Weight 234 lb 6.4 oz Weight 224 lb 13.944 oz Physical Exam Narrative: General: Cooperative patient in no apparent distress. Well developed. HEENT: Normocephalic, Atraumatic. External ears normal. Nasal passages patent without drainage. MMM. Heart: Regular rate and rhythm. Resp: Lungs clear to auscultation no respiratory distress, no use of accessory muscles. Abd: Soft, nontender, non-distended. Extremities: No edema. Skin: No rash or lesions on exposed areas. Urinary Catheter Management: Little: Cath Placed During This Visit: yes Reason for Continuing Indwelling Catheter: Other Urinary Catheter Date of Insertion: 05/19/22 Data 06/03/22 04:35 06/03/22 04:35 A&P Assessment and plan (1) Respiratory failure with hypoxia: Combination of mixed diastolic and systolic heart failure in setting of renal insufficiency requiring hemodialysis and aspiration pneumonia. Keep oxygen supplementation with saturation over 90%. BiPAP nightly and as needed. Appreciate nephrology recommendations on diuretic challenge with Lasix and metolazone for now. Renal function with minimal improvement, but with underlying CHF and renal compromise patient most likely needs hemodialysis. Patient is agreeable. Continue with hemodialysis through temporary cath in place. Dialysis sessions as per nephrology. Lasix and diuretic therapy as per nephrology. Currently on Lasix 40 mg IV daily. Metolazone stopped. Diet advanced as per speech recommendations. Aspiration precautions. Fluid restriction up to 1200 cc. Patient has history of 30 to 35% with diastolic dysfunction and regional wall motion abnormality. Strict input output charting, daily weights. Maintain Little. Appreciate CT chest results. PE unlikely. Switch anticoagulation back to Eliquis 2.5 mg twice daily. He has already finished course of antibiotics for aspiration pneumonia. Last dose of antibiotics on 05/29. Sputum culture negative except Lucy albicans in sputum which is most likely commensal. Respiratory viral panel negative. Incentive spirometry, flutter valve. (2) Chronic systolic heart failure: (3) CRF (chronic renal failure): (4) Acute kidney injury superimposed on CKD: Appreciate nephrology assessment, consideration of hemodialysis. Discussed with him risk of hemodynamic changes in setting of low EF. Anticoagulant is held. Patient agreeable. Patient had temporary catheter placed on 05/29. Patient already has a peritoneal catheter in place. Catheter is internalized. Discussed in detail with patient and patient's family. Patient would prefer to have hemodialysis going forward and not peritoneal dialysis. Discussed case in detail with nephrology and surgery along with case management. Plan for placement of permanent hemodialysis catheter and removal of peritoneal dialysis catheter on Saturday. Continue to hold home dose of Eliquis for now. No obstructive uropathy on kidney ultrasound. Medical reconciliation done and dose was changed as per renal functions (5) Anemia: Hemoglobin stable. No sign of retroperitoneal/psoas bleeding on CT. Follow-up Hemoccult. Continue PPI. Had some right lower quadrant/right flank pain yesterday,no acute pathology on CT. Not complaining of it today. No obvious bleeding. He is on anticoagulation. Does have underlying CKD. (6) Chest pain: Seen multiple times in the past for similar complaints. So far no additional chest pain. Multiple cardiac angiograms as per the chart with patent stents. Lexiscan stress test negative for any acute ischemia and consistent with myocardial scarring. Continue with aspirin, statin, Imdur, beta-zaira. (7) Cellulitis and abscess of left leg: Post I&D. Healing well. Erythema resolved. No drainage from wound. Small abrasion/erosion posterior lower leg, without drainage. Does have a bruise in the area, no significant swelling or fluctuance. Continue wound care. MRSA PCR positive. (8) 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 mellitus: Patient complaining of bilateral lower foot pain most likely related to neuropathy. Improved. Decreased gabapentin dose due to JESUS. Requip to 0.5 mg nightly. Decreased bupropion dose. Continue BuSpar. Celexa stopped. (9) Hypertension: Goal blood pressure less than 140/90 mmHg. 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 Eliquis was restarted. Plan Asterixis: Noted mild degree of metabolic encephalopathy, asterixis. Secondary to uremia. He is also generally weak and deconditioned. Fall precautions. Up only with assistance. Pain in feet when standing: Dry cracked skin. emollient. Full code. Protonix for PUD prophylaxis Eliquis is suffice DVT prophylaxis. Currently on hold for procedure. Plan for the day: Permanent catheter in place and stable. No concerns at this time. Continue dialysis. He is setup for outpatient. May leave Little out at this time. He does produce and void small amount of urine. Continue oxygen supplementation as needed to maintain saturation over 90%. Possible transfer to SNF tomorrow. Continue Eliquis twice daily. Discharge planning: SNF for further rehabilitation as his is not able to take care of him at his home anymore. Patient has been accepted at [facility]. Awaiting prior authorization and placement of permanent dialysis access. Awaiting chair time as an outpatient as well. Case management on board. Attestations Medical Necessity Statement*: per medicine Time Spent in Patient Care: 16 - 35 minutes (>than 50% of time spent in counselling and/or direct pt care on unit). Coding Level of Care Code Acute Code for Chg Fwd Diagnoses Respiratory failure with hypoxia J96.91 Chronic systolic heart failure I50.22 CRF (chronic renal failure) N18.9 Acute kidney injury superimposed on CKD N17.9; N18.9 Anemia D64.9 Chest pain R07.9 Cellulitis and abscess of left leg L03.116; L02.416 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 mellitus E11.42 Hypertension I10 Chronic anticoagulation Z79.01
[2022-06-03] MEDS: metoprolol tartrate 50 mg Tablet 25 MG PO (18:58)
[2022-06-03] MEDS: HYDROmorphone 1 mg/mL INJ 1 mL 0.4 MG IVP (20:00)
[2022-06-03 20:30] LABS: Glucose Point of Care 140 mg/dL (70-110)
[2022-06-03] MEDS: budesonide 0.5 mg/2 mL Neb INHALATION (21:08)
[2022-06-03] MEDS: insulin glargine 100 units/1 mL 30 UNIT SUBCUT (22:10)
[2022-06-03] MEDS: ropinirole 0.25 mg Tablet 0.5 MG PO (22:10)
[2022-06-03] MEDS: trazodone 100 mg Tablet 400 MG PO (22:12)
[2022-06-04] VITALS (17 sets, daily range): BP systolic 98–147; BP diastolic 53–73; PULSE 59–72; RESP 14–18; TEMP 36–36.6; O2SAT 91–96
[2022-06-04] MEDS: pantoprazole 40 mg SDV IVP (01:52)
[2022-06-04 02:20] LABS: Alanine Aminotransferase < 5 U/L (0-41); Albumin Level 3.1 g/dL (3.5-5.2); Alkaline Phosphatase 81 U/L (40-130); Anion Gap 11.9 (5-19); Aspartate Amino Transferase 10 U/L (0-40); Blood Urea Nitrogen 21 mg/dL (6-20); Carbon Dioxide 27 mmol/L (22-29); Chloride 95 mmol/L (98-107); Globulin 2.7 g/dL (1.3-4.6); Glomerular Filtration Rate 21.1 mL/min (90-130); Glucose 247 mg/dL (65-115); Magnesium 1.9 mg/dL (1.7-2.3); Osmolality Calculated 281 mOsm/kg (285-295); Phosphorus 3.4 mg/dL (2.5-4.5); Potassium 3.9 mmol/L (3.5-5.1); Sodium 130 mmol/L (136-145); Total Bilirubin 0.3 mg/dL (0.15-1.2); Total Protein 5.8 g/dL (6.6-8.7)
[2022-06-04] MEDS: HYDROmorphone 1 mg/mL INJ 1 mL 0.4 MG IVP ×4 (03:31→18:05)
[2022-06-04] MEDS: metoprolol tartrate 50 mg Tablet 25 MG PO ×2 (06:27→18:03)
[2022-06-04] MEDS: aspirin 81 mg EC Tablet PO (06:27)
[2022-06-04] MEDS: atorvastatin 40 mg Tablet PO (06:27)
[2022-06-04] MEDS: levothyroxine 88 mcg Tablet PO (06:27)
[2022-06-04] MEDS: buPROPion XL (24 HR) 300 mg Tablet 150 MG PO (06:28)
[2022-06-04 06:45] LABS: Glucose Point of Care 222 mg/dL (70-110)
--- NOTE | 2022-06-04 07:23 | PM.PN ---
Subjective Subjective: feels better. dec edema and sob. states that he is eating. no n/v/f/c/palomo/d Medications: Reviewed: Yes Medication Review Details: Current Medications Acetaminophen (Acetaminophen 325 Mg Tablet) 650 mg PO Q6H PRN PRN Reason: Mild/Mod Pain Or Temp >/= 101 Last Admin: 05/26/22 17:52 Dose: 650 mg Hydrocodone Bitart/Acetaminophen (Hydrocodone-Acetaminophen 5-325 Mg Tablet) 1 tab PO Q8H PRN PRN Reason: MODERATE PAIN Last Admin: 06/03/22 06:04 Dose: 1 tab Albuterol Sulfate (Albuterol 2.5 Mg/3 Ml Neb) 2.5 mg INHALATION ONCE PRN PRN Reason: WHEEZING Apixaban (Apixaban 5 Mg Tablet) 2.5 mg PO BID@0900,2100 [facility] Last Admin: 05/27/22 08:24 Dose: 2.5 mg Aspirin (Aspirin 81 Mg Ec Tablet) 81 mg PO DAILY@0600 [facility] Last Admin: 06/04/22 06:27 Dose: 81 mg Atorvastatin Calcium (Atorvastatin 40 Mg Tablet) [facility] [place] [place] Last Admin: 06/04/22 06:27 Dose: 40 mg Budesonide (Budesonide 0.5 Mg/2 Ml Neb) 0.5 mg INHALATION BID.RESPIRATORY [facility] Last Admin: 06/03/22 21:08 Dose: 0.5 mg Bupropion HCl (Bupropion Xl (24 Hr) 300 Mg Tablet) 150 mg PO QAM [facility] Last Admin: 06/04/22 06:28 Dose: 150 mg Buspirone HCl (Buspirone 10 Mg Tablet) 5 mg PO TID [facility] Last Admin: 06/03/22 22:09 Dose: 5 mg Capsaicin (Capsaicin 0.025% Cream 60 Gm) 1 applic TOPICAL QID PRN PRN Reason: PAIN Dextrose (Dextrose 50% Syringe 50 Ml) 25 ml IVP ONCE PRN; Protocol PRN Reason: hypoglycemia protocol Dextrose (Dextrose 50% Syringe 50 Ml) 50 ml IVP PRN PRN; Protocol PRN Reason: hypoglycemia protocol Famotidine (Famotidine 20 Mg/2 Ml Inj) 20 mg IVP ONCE PRN PRN Reason: HEARTBURN Fentanyl (Fentanyl 50 Mcg/Ml Inj 2ml) 50 mcg IVP Q10M PRN PRN Reason: Preop Pain Fentanyl (Fentanyl 50 Mcg/Ml Inj 2ml) 100 mcg IVP ONCE PRN PRN Reason: Per anesthesia for block Gabapentin (Gabapentin 100 Mg Capsule) 100 mg PO BID [facility] Last Admin: 06/03/22 18:58 Dose: 100 mg Glucagon (Glucagon 1 Mg/Ml Inj 1 Ml) 1 mg IM ONCE PRN; Protocol PRN Reason: Adult Acute Hypoglycemia Prot. Hydromorphone HCl (Hydromorphone 1 Mg/Ml Inj 1 Ml) 0.4 mg IVP Q4H PRN PRN Reason: SEVERE pain Last Admin: 06/04/22 03:31 Dose: 0.4 mg Dextrose (D5w) 500 mls @ 100 mls/hr IV ONCE PRN; Protocol PRN Reason: Adult Acute Hypoglycemia Prot Sodium Chloride (Sodium Chloride 0.9%) 500 mls @ 999 mls/hr IV .Q31M PRN PRN Reason: HYPOTENSION Insulin Glargine (Insulin Glargine 100 Units/1 Ml) 30 unit SUBCUT BEDTIME [facility] Last Admin: 06/03/22 22:10 Dose: 30 unit Insulin Human Lispro (Insulin Lispro 100 Unit/1 Ml) 0 unit SUBCUT WM&BEDTIME [facility]; Protocol Last Admin: 06/03/22 20:33 Dose: Not Given Ipratropium [place] (Ipratropium 0.5 Mg/2.5 Ml Neb) 0.5 mg INHALATION Q6H.RESP [facility] Last Admin: 06/03/22 21:08 Dose: 0.5 mg Ipratropium [place] (Ipratropium 0.5 Mg/2.5 Ml Neb) 0.5 mg INHALATION ONCE PRN PRN Reason: WHEEZING Levalbuterol HCl (Levalbuterol 0.63 Mg/3 Ml Neb) 0.63 mg INHALATION Q6H.RESP [facility] Last Admin: 06/03/22 21:09 Dose: 0.63 mg Levothyroxine Sodium (Levothyroxine 88 Mcg Tablet) 88 mcg PO QAM [facility] Last Admin: 06/04/22 06:27 Dose: 88 mcg Losartan Potassium (Losartan 50 Mg Tablet) 25 mg PO DAILY [facility] Last Admin: 06/03/22 10:31 Dose: 25 mg Metoclopramide HCl (Metoclopramide 5 Mg/Ml Sdv 2 Ml) 10 mg IVP ONCE PRN PRN Reason: N/V if zofran ineffective Metoprolol Tartrate (Metoprolol Tartrate 50 Mg Tablet) 25 mg PO BID@0600,1800 [facility] Last Admin: 06/04/22 06:27 Dose: 25 mg Midazolam HCl (Midazolam 1 Mg/Ml Inj 2 Ml) 2 mg IVP Q5M PRN PRN Reason: Preop Anxiety Midazolam HCl (Midazolam 1 Mg/Ml Inj 5 Ml) 5 mg IVP ONCE PRN PRN Reason: Per anesthesia for block Morphine Sulfate (Morphine 4 Mg/Ml Sdv 1 Ml) 0 mg IVP Q5M PRN PRN Reason: Breakthrough Pain PACU PhaseII Nitroglycerin (Nitroglycerin 0.4 Mg Sublingual Tablet) 0.4 mg SUBLINGUAL Q5M PRN PRN Reason: Chest Pain Ondansetron HCl (Ondansetron 2 Mg/Ml Sdv 2 Ml) 4 mg IVP Q2M PRN PRN Reason: NAUSEA Ondansetron HCl (Ondansetron 2 Mg/Ml Sdv 2 Ml) 4 mg IVP Q5M PRN PRN Reason: NAUSEA AND VOMITING Pantoprazole Sodium (Pantoprazole 40 Mg Sdv) 40 mg IVP Q24H [facility] Last Admin: 06/04/22 01:52 Dose: 40 mg Ranolazine (Ranolazine (12hr) 500 Mg Tablet) 500 mg PO BID [facility] Last Admin: 06/03/22 18:58 Dose: 500 mg Ropinirole HCl (Ropinirole 0.25 Mg Tablet) 0.5 mg PO BEDTIME [facility] Last Admin: 06/03/22 22:10 Dose: 0.5 mg Scopolamine (Scopolamine 1.5 Patch) 1 patch TRANSDERMA ONCE PRN PRN Reason: Nausea/ Vomiting Prophylaxis Sevelamer Carbonate (Sevelamer 800 Mg Tablet) 800 mg PO TID [facility] Last Admin: 06/03/22 22:12 Dose: 800 mg Trazodone HCl (Trazodone 100 Mg Tablet) 400 mg PO BEDTIME PRN PRN Reason: insomnia Last Admin: 06/03/22 22:12 Dose: 400 mg Vitals/I&O/Wt Last Vital Signs Temp 97.4 F L 06/04/22 04:00 Pulse 63 06/04/22 06:25 Resp 16 06/04/22 04:00 BP 147/71 06/04/22 06:25 Pulse Ox 91 06/04/22 04:00 O2 Del Method 06/03/22 20:00 O2 Flow Rate 1.5 06/03/22 20:00 FiO2 50 06/01/22 02:00 06/03/22 06/04/22 06/04/22 22:59 06:59 14:59 Intake Total 860 / 1340 Output Total 1486 / 1486 900 / 2386 Balance -626 / -146 -900 / -1046 Weight last 48 hrs Weight 103.51 kg Weight 104.2 kg Weight 106.322 kg Physical Exam Narrative: comfortable in bed, NARD vs noted heent- nc/at, eomi neck supple- rt IJ PErmacath lungs clear b/l heart reg abd soft, nt, +BS, PD catheter removed- site c/d/i ext -dec b/l edema. left leg red warm area w/ draining abscess neuro- a,a, o x 3, no asterixis no brown Urinary Catheter Management: Brown: Cath Placed During This Visit: yes Reason for Continuing Indwelling Catheter: Other Urinary Catheter Date of Insertion: 05/19/22 Data 06/03/22 04:35 06/04/22 01:52 A&P Assessment and plan (1) ESRD (end stage renal disease): seen via telemedicine with assistance of RN during dialysis Plan 1. ESRD due to diabetic nephropathy, hypertension. Last HD 06/01/22. Plan to continue HD. tunneled HD catheter placed and PD catheter removed on 06/01/22 -s/p HD yesterday -repeat HD tomorrow morning -can be as outpt 2. mixed CHF systolic and diastolic- EF 30-35% use ARB 3. MRSA wound infection 4. Diabetes mellitus per medicine 5. Anemia, s/p IV iron load-use JENNIFER 6. Hyperphosphatemia; sevelemar with meals started seen and examined w/ RN- telehealth visit time spent 25 minutes Attestations Medical Necessity Statement*: per medicine Time Spent in Patient Care: 16 - 35 minutes (>than 50% of time spent in counselling and/or direct pt care on unit). Coding Level of Care Code Acute Code for Chg Fwd Diagnoses ESRD (end stage renal disease) N18.6
[2022-06-04] MEDS: ipratropium 0.5 mg/2.5 mL Neb INHALATION (08:35)
[2022-06-04] MEDS: budesonide 0.5 mg/2 mL Neb INHALATION ×2 (08:35→21:35)
[2022-06-04] MEDS: levalbuterol 0.63 mg/3 mL Neb INHALATION ×2 (08:35→21:35)
[2022-06-04] MEDS: insulin lispro 100 unit/1 mL SUBCUT ×3 (08:51→22:01)
[2022-06-04] MEDS: gabapentin 100 mg Capsule PO ×2 (08:52→18:03)
[2022-06-04] MEDS: ranolazine (12HR) 500 mg Tablet PO ×2 (08:52→18:03)
[2022-06-04] MEDS: losartan 50 mg Tablet 25 MG PO (08:52)
[2022-06-04] MEDS: sevelamer 800 mg Tablet PO ×3 (08:52→22:04)
[2022-06-04] MEDS: BuSPIRONE 10 mg Tablet 5 MG PO ×3 (08:52→22:03)
--- NOTE | 2022-06-04 11:10 | PC.SOCIAL ---
IMM Updated Updated pt & family on IMM. No questions voiced. Provided pt a copy. Initialed, dated, & timed copy in chart.
[2022-06-04 11:26] LABS: Glucose Point of Care 125 mg/dL (70-110)
[2022-06-04] MEDS: diphenhydrAMINE 50 mg/mL SDV 1mL 25 MG IVP (16:07)
[2022-06-04 17:12] LABS: Glucose Point of Care 252 mg/dL (70-110)
[2022-06-04 20:54] LABS: Glucose Point of Care 215 mg/dL (70-110)
--- NOTE | 2022-06-04 20:59 | PM.PN ---
Subjective Subjective: He has been having some pain around the catheter insertion site. States that Dilaudid has been working better for him than hydrocodone's. This morning having nausea. Regurgitated small amount which he thinks mostly swallowed, but some may into his airway. With multiple antibiotic allergies. IV fentanyl could not be administered on the floor. Declined intramuscular Phenergan. Medications: Reviewed: Yes Vitals/I&O/Wt Last Vital Signs Temp 97.8 F 06/04/22 19:36 Pulse 63 06/04/22 19:36 Resp 15 06/04/22 19:36 BP 99/57 06/04/22 19:36 Pulse Ox 94 06/04/22 19:36 O2 Del Method 06/04/22 19:36 O2 Flow Rate 0.5 06/04/22 19:36 FiO2 50 06/01/22 02:00 06/04/22 06/04/22 06/04/22 06:59 14:59 22:59 Intake Total 240 / 240 240 / 480 Output Total 900 / 2386 Balance -900 / -1046 240 / 240 240 / 480 Weight last 48 hrs Weight 103.51 kg Weight 104.2 kg Weight 106.322 kg Physical Exam Narrative: Up in chair. accompanies him at bedside. Const: COMMON NORMALS: patient oriented x3 and alert GENERAL APPEARANCE: cooperative ORIENTATION/CONSCIOUSNESS: Yes awake HENMT: COMMON NORMALS: oropharynx normal Neck/C-Spine: COMMON NORMALS: no JVD Resp: COMMON NORMALS: normal respiratory effort and clear to auscultation bilaterally AUSCULTATION: clear to auscultation bilaterally Cardio: COMMON NORMALS: no JVD, regular rhythm, S1 normal heart sound present, S2 normal heart sound present and No murmurs present (Cardio) RHYTHM: regular rhythm HEART SOUNDS: S1 normal heart sound present and S2 normal heart sound present GI: COMMON NORMALS: Normal to inspection, nondistended, normoactive bowel sounds present, Soft to palpation and non-tender PALPATION: Yes Soft to palpation Extremity: COMMON NORMALS: no joint enlargement and no pedal edema Neuro: COMMON NORMALS: patient oriented x3 and moves all extremities SENSORIUM/ORIENTATION: Yes alert Skin: NARRATIVE SKIN EXAM: Scars after fasciotomies OTHER: Resolved cellulitis. Dressing over LLE Urinary Catheter Management: Little: Cath Placed During This Visit: yes Reason for Continuing Indwelling Catheter: Other Urinary Catheter Date of Insertion: 05/19/22 Data 06/03/22 04:35 06/04/22 01:52 A&P Assessment and plan (1) Respiratory failure with hypoxia: Had some regurgitation today, may have had again some small amount of aspiration. Reassess respiratory function, oxygenation. Pending authorization for continued rehabilitation at [facility]. Combination of mixed diastolic and systolic heart failure in setting of renal insufficiency requiring hemodialysis and aspiration pneumonia. Keep oxygen supplementation with saturation over 90%. BiPAP nightly and as needed. Appreciate nephrology recommendations on diuretic challenge with Lasix and metolazone for now. Renal function with minimal improvement, but with underlying CHF and renal compromise patient most likely needs hemodialysis. Patient is agreeable. Continue with hemodialysis through temporary cath in place. Dialysis sessions as per nephrology. Lasix and diuretic therapy as per nephrology. Currently on Lasix 40 mg IV daily. Metolazone stopped. Diet advanced as per speech recommendations. Aspiration precautions. Fluid restriction up to 1200 cc. Patient has history of 30 to 35% with diastolic dysfunction and regional wall motion abnormality. Strict input output charting, daily weights. Maintain Little. Appreciate CT chest results. PE unlikely. Switch anticoagulation back to Eliquis 2.5 mg twice daily. He has already finished course of antibiotics for aspiration pneumonia. Last dose of antibiotics on 05/29. Sputum culture negative except Lucy albicans in sputum which is most likely commensal. Respiratory viral panel negative. Incentive spirometry, flutter valve. (2) Chronic systolic heart failure: (3) CRF (chronic renal failure): (4) Acute kidney injury superimposed on CKD: Continue hemodialysis after discharge. Status post tunneled catheter and removal of PD catheter. (5) Anemia: Hemoglobin stable. No sign of retroperitoneal/psoas bleeding on CT. Follow-up Hemoccult. Continue PPI. Had some right lower quadrant/right flank pain yesterday,no acute pathology on CT. Not complaining of it today. No obvious bleeding. He is on anticoagulation. Does have underlying CKD. (6) Chest pain: Seen multiple times in the past for similar complaints. So far no additional chest pain. Multiple cardiac angiograms as per the chart with patent stents. Lexiscan stress test negative for any acute ischemia and consistent with myocardial scarring. Continue with aspirin, statin, Imdur, beta-zaira. (7) Cellulitis and abscess of left leg: Post I&D. Healing well. Erythema resolved. No drainage from wound. Small abrasion/erosion posterior lower leg, without drainage. Does have a bruise in the area, no significant swelling or fluctuance. Continue wound care. MRSA PCR positive. (8) 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 mellitus: Patient complaining of bilateral lower foot pain most likely related to neuropathy. Improved. Decreased gabapentin dose due to JESUS. Requip to 0.5 mg nightly. Decreased bupropion dose. Continue BuSpar. Celexa stopped. (9) Hypertension: Goal blood pressure less than 140/90 mmHg. 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 Eliquis was restarted. Plan Asterixis: Improved. Pain in feet when standing: Dry cracked skin. Continue emollient. Full code. Protonix for PUD prophylaxis Eliquis is suffice DVT prophylaxis. Currently on hold for procedure. Attestations Medical Necessity Statement*: Continue admission for reassessment of oxygenation and respiratory function following possible additional micro aspiration, continue arrangements for rehabilitation SNF pending authorization. Coding Level of Care Code Acute Code for Chg Fwd Diagnoses Respiratory failure with hypoxia J96.91 Chronic systolic heart failure I50.22 CRF (chronic renal failure) N18.9 Acute kidney injury superimposed on CKD N17.9; N18.9 Anemia D64.9 Chest pain R07.9 Cellulitis and abscess of left leg L03.116; L02.416 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 mellitus E11.42 Hypertension I10 Chronic anticoagulation Z79.01
[2022-06-04] MEDS: insulin glargine 100 units/1 mL 30 UNIT SUBCUT (22:02)
[2022-06-04] MEDS: ropinirole 0.25 mg Tablet 0.5 MG PO (22:04)
[2022-06-04] MEDS: trazodone 100 mg Tablet 400 MG PO (22:05)
[2022-06-04] MEDS: HYDROcodone-acetaminophen 5-325 mg Tablet 1 TAB PO (22:06)
[2022-06-05] VITALS (10 sets, daily range): BP systolic 128–160; BP diastolic 62–84; PULSE 58–90; RESP 15–18; TEMP 36.4–36.8; O2SAT 86–95
[2022-06-05] MEDS: pantoprazole 40 mg SDV IVP (00:01)
[2022-06-05] MEDS: HYDROmorphone 1 mg/mL INJ 1 mL 0.4 MG IVP ×2 (02:03→12:32)
[2022-06-05 03:11] LABS: Alanine Aminotransferase < 5 U/L (0-41); Albumin Level 3.2 g/dL (3.5-5.2); Alkaline Phosphatase 87 U/L (40-130); Anion Gap 15.9 (5-19); Aspartate Amino Transferase 11 U/L (0-40); Blood Urea Nitrogen 33 mg/dL (6-20); Calcium 8.4 mg/dL (8.5-10.5); Carbon Dioxide 26 mmol/L (22-29); Chloride 98 mmol/L (98-107); Globulin 2.8 g/dL (1.3-4.6); Glomerular Filtration Rate 15.7 mL/min (90-130); Glucose 144 mg/dL (65-115); Magnesium 2.2 mg/dL (1.7-2.3); Osmolality Calculated 292 mOsm/kg (285-295); Phosphorus 4.6 mg/dL (2.5-4.5); Potassium 3.9 mmol/L (3.5-5.1); Sodium 136 mmol/L (136-145); Total Bilirubin 0.2 mg/dL (0.15-1.2)
[2022-06-05] MEDS: aspirin 81 mg EC Tablet PO (05:57)
[2022-06-05] MEDS: levothyroxine 88 mcg Tablet PO (05:57)
[2022-06-05] MEDS: atorvastatin 40 mg Tablet PO (05:57)
[2022-06-05] MEDS: buPROPion XL (24 HR) 300 mg Tablet 150 MG PO (05:57)
[2022-06-05 06:42] LABS: Glucose Point of Care 138 mg/dL (70-110)
--- NOTE | 2022-06-05 07:25 | PM.PN ---
Subjective Subjective: tired. has rt sided pain by permacath. dec edema. no n/v/f/c/cp/palomo/d/sob Medications: Reviewed: Yes Medication Review Details: Current Medications Acetaminophen (Acetaminophen 325 Mg Tablet) 650 mg PO Q6H PRN PRN Reason: Mild/Mod Pain Or Temp >/= 101 Last Admin: 05/26/22 17:52 Dose: 650 mg Hydrocodone Bitart/Acetaminophen (Hydrocodone-Acetaminophen 5-325 Mg Tablet) 1 tab PO Q8H PRN PRN Reason: MODERATE PAIN Last Admin: 06/04/22 22:06 Dose: 1 tab Albuterol Sulfate (Albuterol 2.5 Mg/3 Ml Neb) 2.5 mg INHALATION ONCE PRN PRN Reason: WHEEZING Apixaban (Apixaban 5 Mg Tablet) 2.5 mg PO BID@0900,2100 [facility] Last Admin: 05/27/22 08:24 Dose: 2.5 mg Aspirin (Aspirin 81 Mg Ec Tablet) 81 mg PO DAILY@0600 [facility] Last Admin: 06/05/22 05:57 Dose: 81 mg Atorvastatin Calcium (Atorvastatin 40 Mg Tablet) 40 mg PO QAM [facility] Last Admin: 06/05/22 05:57 Dose: 40 mg Budesonide (Budesonide 0.5 Mg/2 Ml Neb) 0.5 mg INHALATION BID.RESPIRATORY [facility] Last Admin: 06/04/22 21:35 Dose: 0.5 mg Bupropion HCl (Bupropion Xl (24 Hr) 300 Mg Tablet) 150 mg PO QAM [facility] Last Admin: 06/05/22 05:57 Dose: 150 mg Buspirone HCl (Buspirone 10 Mg Tablet) 5 mg PO TID [facility] Last Admin: 06/04/22 22:03 Dose: 5 mg Capsaicin (Capsaicin 0.025% Cream 60 Gm) 1 applic TOPICAL QID PRN PRN Reason: PAIN Dextrose (Dextrose 50% Syringe 50 Ml) 25 ml IVP ONCE PRN; Protocol PRN Reason: hypoglycemia protocol Dextrose (Dextrose 50% Syringe 50 Ml) 50 ml IVP PRN PRN; Protocol PRN Reason: hypoglycemia protocol Famotidine (Famotidine 20 Mg/2 Ml Inj) 20 mg IVP ONCE PRN PRN Reason: HEARTBURN Fentanyl (Fentanyl 50 Mcg/Ml Inj 2ml) 50 mcg IVP Q10M PRN PRN Reason: Preop Pain Fentanyl (Fentanyl 50 Mcg/Ml Inj 2ml) 100 mcg IVP ONCE PRN PRN Reason: Per anesthesia for block Gabapentin (Gabapentin 100 Mg Capsule) 100 mg PO BID [facility] Last Admin: 06/04/22 18:03 Dose: 100 mg Glucagon (Glucagon 1 Mg/Ml Inj 1 Ml) 1 mg IM ONCE PRN; Protocol PRN Reason: Adult Acute Hypoglycemia Prot. Hydromorphone HCl (Hydromorphone 1 Mg/Ml Inj 1 Ml) 0.4 mg IVP Q4H PRN PRN Reason: SEVERE pain Last Admin: 06/05/22 02:03 Dose: 0.4 mg Dextrose (D5w) 500 mls @ 100 mls/hr IV ONCE PRN; Protocol PRN Reason: Adult Acute Hypoglycemia Prot Sodium Chloride (Sodium Chloride 0.9%) 500 mls @ 999 mls/hr IV .Q31M PRN PRN Reason: HYPOTENSION Insulin Glargine (Insulin Glargine 100 Units/1 Ml) 30 unit SUBCUT BEDTIME [facility] Last Admin: 06/04/22 22:02 Dose: 30 unit Insulin Human Lispro (Insulin Lispro 100 Unit/1 Ml) 0 unit SUBCUT WM&BEDTIME [facility]; Protocol Last Admin: 06/04/22 22:01 Dose: 8 unit Levalbuterol HCl (Levalbuterol 0.63 Mg/3 Ml Neb) 0.63 mg INHALATION Q6H.RESP [facility] Last Admin: 06/05/22 04:34 Dose: Not Given Levothyroxine Sodium (Levothyroxine 88 Mcg Tablet) 88 mcg PO QAM [facility] Last Admin: 06/05/22 05:57 Dose: 88 mcg Losartan Potassium (Losartan 50 Mg Tablet) 25 mg PO DAILY [facility] Last Admin: 06/04/22 08:52 Dose: 25 mg Metoclopramide HCl (Metoclopramide 5 Mg/Ml Sdv 2 Ml) 10 mg IVP ONCE PRN PRN Reason: N/V if zofran ineffective Metoprolol Tartrate (Metoprolol Tartrate 50 Mg Tablet) 25 mg PO BID@0600,1800 [facility] Last Admin: 06/05/22 05:05 Dose: Not Given Midazolam HCl (Midazolam 1 Mg/Ml Inj 2 Ml) 2 mg IVP Q5M PRN PRN Reason: Preop Anxiety Midazolam HCl (Midazolam 1 Mg/Ml Inj 5 Ml) 5 mg IVP ONCE PRN PRN Reason: Per anesthesia for block Morphine Sulfate (Morphine 4 Mg/Ml Sdv 1 Ml) 0 mg IVP Q5M PRN PRN Reason: Breakthrough Pain PACU PhaseII Nitroglycerin (Nitroglycerin 0.4 Mg Sublingual Tablet) 0.4 mg SUBLINGUAL Q5M PRN PRN Reason: Chest Pain Ondansetron HCl (Ondansetron 2 Mg/Ml Sdv 2 Ml) 4 mg IVP Q2M PRN PRN Reason: NAUSEA Ondansetron HCl (Ondansetron 2 Mg/Ml Sdv 2 Ml) 4 mg IVP Q5M PRN PRN Reason: NAUSEA AND VOMITING Pantoprazole Sodium (Pantoprazole 40 Mg Sdv) 40 mg IVP Q24H [facility] Last Admin: 06/05/22 00:01 Dose: 40 mg Ranolazine (Ranolazine (12hr) 500 Mg Tablet) 500 mg PO BID [facility] Last Admin: 06/04/22 18:03 Dose: 500 mg Ropinirole HCl (Ropinirole 0.25 Mg Tablet) 0.5 mg PO BEDTIME [facility] Last Admin: 06/04/22 22:04 Dose: 0.5 mg Scopolamine (Scopolamine 1.5 Patch) 1 patch TRANSDERMA ONCE PRN PRN Reason: Nausea/ Vomiting Prophylaxis Sevelamer Carbonate (Sevelamer 800 Mg Tablet) 800 mg PO TID [facility] Last Admin: 06/04/22 22:04 Dose: 800 mg Trazodone HCl (Trazodone 100 Mg Tablet) 400 mg PO BEDTIME PRN PRN Reason: insomnia Last Admin: 06/04/22 22:05 Dose: 400 mg Vitals/I&O/Wt Last Vital Signs Temp 98.2 F 06/05/22 04:00 Pulse 60 06/05/22 04:00 Resp 16 06/05/22 04:00 BP 129/62 06/05/22 04:00 Pulse Ox 92 06/05/22 04:00 O2 Del Method 06/05/22 04:00 O2 Flow Rate 0.5 06/05/22 04:00 FiO2 50 06/01/22 02:00 06/04/22 06/05/22 06/05/22 22:59 06:59 14:59 Intake Total 360 / 600 Output Total 200 / 200 Balance 360 / 600 -200 / 400 Weight last 48 hrs Weight 108.04 kg Weight 103.51 kg Weight 104.2 kg Physical Exam Narrative: comfortable in bed, NARD vs noted heent- nc/at, eomi neck supple- rt IJ PErmacath lungs clear b/l heart reg abd soft, nt, +BS, PD catheter removed- site c/d/i ext -1+b/l edema. neuro- a,a, o x 3, no asterixis no brown Urinary Catheter Management: Brown: Cath Placed During This Visit: yes Reason for Continuing Indwelling Catheter: Other Urinary Catheter Date of Insertion: 05/19/22 Data 06/03/22 04:35 06/05/22 02:30 A&P Assessment and plan (1) ESRD (end stage renal disease): seen via telemedicine with assistance of RN during dialysis Plan 1. ESRD due to diabetic nephropathy, hypertension. - tunneled HD catheter placed and PD catheter removed on 06/01/22 -repeat HD today - remove 2 liters as tolertaed, 3 k bath 2. mixed CHF systolic and diastolic- EF 30-35% use ARB 3. MRSA wound infection 4. Diabetes mellitus per medicine 5. Anemia, s/p IV iron load-use JENNIFER 6. Hyperphosphatemia; sevelemar with meals started 7. Lexiscan stress test negative for any acute ischemia and consistent with myocardial scarring. Continue with aspirin, statin, Imdur, beta-zaira. seen and examined w/ RN- telehealth visit time spent 25 minutes Attestations Medical Necessity Statement*: per medicine Time Spent in Patient Care: 16 - 35 minutes (>than 50% of time spent in counselling and/or direct pt care on unit). Coding Level of Care Code Acute Code for Chg Fwd Diagnoses ESRD (end stage renal disease) N18.6
--- NOTE | 2022-06-05 08:04 | PC.HD ---
Patient is complaining of 5/10 pain at access site during pre-dialysis assessment. Patient requested pain medications. He was advised that dialysis would lessen the effectiveness of pain medication. He chose to attempt to manage dialysis without the pain medication. Patient stated that he would notify this RN if the pain became worse and he changes his mind about medications.
[2022-06-05] MEDS: sevelamer 800 mg Tablet PO (12:31)
[2022-06-05] MEDS: ranolazine (12HR) 500 mg Tablet PO (12:32)
[2022-06-05] MEDS: gabapentin 100 mg Capsule PO (12:32)
[2022-06-05] MEDS: losartan 50 mg Tablet 25 MG PO (12:32)
[2022-06-05] MEDS: BuSPIRONE 10 mg Tablet 5 MG PO (12:33)
[2022-06-05] MEDS: levalbuterol 0.63 mg/3 mL Neb INHALATION (14:20)
[2022-06-05 16:41] LABS: Glucose Point of Care 104 mg/dL (70-110)
--- NOTE | 2022-06-05 17:42 | P.DS_ITS ---
Discharge Providers Date of Admission: 05/18/22 15:35 Date of Discharge: June 05, 2022 Attending Provider at Admission: Jaydon Juarez MD Attending Provider at Discharge: Andrew Gonzalez Primary Care Provider: Kp Montanez DO Diagnoses at Discharge Discharge Diagnosis (1) ESRD (end stage renal disease): Status: Acute Reason for Visit Reason for Visit: Bilateral Knee Pain Hospital Course Hospital Course Pleasant 52-year-old gentleman with CAD status post stenting, ischemic cardiomyopathy, EF 35%, history of cardiac arrest, CKD, history of DVTs, PE, on anticoagulation, HTN, HLD, hypothyroidism, history of spontaneous bleeding in lower extremities with compartment syndrome requiring fasciotomies, recurrent chest pain, was admitted after recent hospitalization for assessment for chest pressure, return to the hospital again due to chest pressure. Additionally complaining of significant neuropathy in lower extremities. He underwent additional cardiac assessment including serial troponins, EKGs, was additionally assessed by stress testing which showed no active ischemia. Hospitalization complicated by respiratory failure secondary to aspiration pneumonia, progressive generalized weakness, with asterixis, acute CHF, as well as additional renal failure initially managed conservatively but without improvement and eventually progressed to needing hemodialysis with overall improvement in condition, resolution of asterixis, improvement in generalized weakness. Improvement in volume status. Aspiration pneumonia with respiratory failure requiring up to 15 L oxygen mask oxygen, gradually improved. Was assessed by speech therapy, swallowing evaluation, with recommendation for continued aspiration precautions. He completed antibiotic course for pneumonia. On presentation also underwent I&D of abscess and completed also antibiotic co verage for cellulitis of left lower extremity which has since resolved. Lower extremity wounds healing and nearly resolved with only small scab. Additionally received transfusion for anemia. Hemoccult was ordered but has not been collected. He did undergo imaging to exclude a retroperitoneal hematoma given transient pain in the right flank, without any hematoma on imaging. Anemia appears combination of ACD and iron deficiency. Would benefit from further follow-up and assessment. His temporary dialysis catheter was removed and replaced with tunneled dialysis catheter on 06/01. At the same time preterminal dialysis catheter was removed as well. He has been rather sore at the catheter insertion site, without any erythema, no swelling of right shoulder or arm, and catheter has been used for dialysis here and is functioning. Please monitor for any changes in symptoms. He requested to take 2 hydrocodone's for a short while he is recovering from catheter implantation. Please reassess pain and continue to de-escalate opioids as per discussion of the due to risk of tolerance and dependence. He otherwise has been improving. He is ambulating over 100 feet with therapy. He has been weaning down on oxygen requirement. He will continue his recovery at home with home health. Continue hemodialysis TTS. Physical Exam Narrative: Up in bed. Const: COMMON NORMALS: patient oriented x3 and alert GENERAL APPEARANCE: cooperative ORIENTATION/CONSCIOUSNESS: Yes awake OTHER: Pleasant, conversant, in good spirits. HENMT: COMMON NORMALS: oropharynx normal Neck/C-Spine: COMMON NORMALS: no JVD Resp: COMMON NORMALS: normal respiratory effort and clear to auscultation bilaterally EFFORT & INSPECTION: Yes able to speak in complete sentences AUSCULTATION: clear to auscultation bilaterally, rales (Faint at bases.) and rhonchi Cardio: COMMON NORMALS: no JVD, regular rhythm, S1 normal heart sound present, S2 normal heart sound present and No murmurs present (Cardio) RHYTHM: regular rhythm HEART SOUNDS: S1 normal heart sound present and S2 normal heart sound present GI: COMMON NORMALS: Normal to inspection, nondistended, normoactive bowel sounds present, Soft to palpation and non-tender PALPATION: Yes Soft to palpation Extremity: COMMON NORMALS: no joint enlargement and no pedal edema Neuro: COMMON NORMALS: patient oriented x3 and moves all extremities SENSORIUM/ORIENTATION: Yes alert Skin: NARRATIVE SKIN EXAM: Scars after fasciotomies OTHER: Resolved cellulitis. Only tiny scabs remaining after wounds on left lower leg and distal posterior lateral upper leg. Urinary Catheter Management: Litlte: Cath Placed During This Visit: no Discharge Data Studies Completed and Pending Completed Studies During Hospitalization Category Date Time Status CT abdomen pelvis wo con [id number] Routine Cat Scan 05/23/22 19:[address] chest wo con [id number] Routine Cat Scan 05/18/22 09:[address] head wo con* [id number] Stat Cat Scan 05/18/22 18:06 Completed CXRP [XR chest 1V portable [id number]] Routine Exams 06/01/22 14:57 Completed Modified barium swallow [FL barium swallow modifd [id number] Exams 05/25/22 12:04 Completed ] Routine Sestamibi Stress Test Request Routine Exams 05/16/22 00:47 Completed XR chest 1V portable [id number] Routine Exams 05/20/22 14:36 Completed XR chest 1V portable [id number] Routine Exams 05/23/22 06:00 Completed XR chest 1V portable [id number] Routine Exams 05/27/22 06:00 Completed XR chest 1V portable [id number] Routine Exams 05/18/22 05:07 Completed XR chest 1V portable [id number] Stat Exams 05/27/22 00:19 Completed XR chest 1V portable [id number] Stat Exams 05/15/22 18:19 Completed NM michelle perf SPECT r/s* [id number] Routine Nuc Med 05/17/22 05:37 [place] [id number] Routine Ultrasound 05/17/22 11:20 Completed US renal BI* [id number] Routine Ultrasound 05/21/22 15:03 Completed US venous duplex lower extremity LT [CV venous duplex Ultrasound 05/15/22 20:37 [place] [id number]] Stat Pending at discharge Category Date Time Status Comprehensive Metabolic Panel AM LABS Lab 06/06/22 04:00 Ordered Magnesium AM LABS Lab 06/06/22 04:00 Ordered Occult Blood Stool [Immunochemical Fecal OCB] Routine Lab 05/23/22 17:50 Uncollected Phosphorus AM LABS Lab 06/06/22 04:00 Ordered Radiology Impressions Venous Duplex 05/15/22 20:37 IMPRESSION: No sonographic evidence of deep vein thrombosis. Chest CT 05/18/22 09:00 IMPRESSION: 1. Compressive atelectasis with consolidation in the bilateral lower lobes medially slightly worse in the LEFT. Associated air bronchograms. Findings compatible with pneumonia. Infiltrates have progressed since March 26, 2021 2. Upper lobes are well aerated. 3. Cardiomegaly. 4. Unchanged bilateral adrenal adenomas. 5. No other acute findings. Head CT 05/18/22 18:06 IMPRESSION: No acute intracranial abnormality. Renal Ultrasound 05/21/22 15:03 IMPRESSION: No pathologic findings. Abdomen/Pelvis CT 05/23/22 19:19 IMPRESSION: 1. Negative for findings of retroperitoneal bleeding as clinically questioned. 2. Mild cardiomegaly. 3. Coronary artery atherosclerotic calcifications. 4. Bibasilar airspace infiltrates. 5. Cholecystectomy. 6. Percutaneous peritoneal catheter seen with tip coiled in the pelvis. 7. Constipation. 8. Diverticulosis without diverticulitis. 9. Little catheter in the urinary bladder with air presumed iatrogenic. 10. Right adrenal 19 mm and left adrenal 3 cm benign adenomas similar to prior exam. Modified Barium Swallow 05/25/22 12:04 Impression: Negative modified barium swallow with minimal premature spillage from the oral pharynx. C-Arm Fluoroscopy 06/01/22 13:26 IMPRESSION: Intraoperative imaging during placement of a large-bore RIGHT subclavian central line. Chest X-Ray 06/01/22 14:57 IMPRESSION: Right subclavian vein dialysis catheter in proper position. Laboratory Results WBC 11.6 10^3/uL (4.0-10.0) H 06/03/22 04:35 RBC 2.63 10^6/uL (4.1-5.3) L 06/03/22 04:35 Hgb 8.0 g/dL (11.7-16.6) L 06/03/22 04:35 Hct 25.6 % (42.0-52.0) L 06/03/22 04:35 MCV 97.3 fl (80-94) H 06/03/22 04:35 MCH 30.4 pg (28.0-34.0) 06/03/22 04:35 MCHC 31.3 g/dL (30.0-36.0) 06/03/22 04:35 RDW 16.0 % (12.1-15.1) H 06/03/22 04:35 Plt Count 353 10^3/cmm (130-400) 06/03/22 04:35 MPV 9.1 fL (7.4-10.4) 06/03/22 04:35 Neut % (Auto) 66.2 % 06/03/22 04:35 Lymph % (Auto) 19.3 % 06/03/22 04:35 Mathews % (Auto) 9.7 % 06/03/22 04:35 Eos % (Auto) 2.1 % 06/03/22 04:35 Baso % (Auto) 1.2 % 06/03/22 04:35 Neut # (Auto) 7.71 10^3/uL (1.8-7.7) H 06/03/22 04:35 Lymph # (Auto) 2.3 10^3/uL (0.8-4.8) 06/03/22 04:35 Mathews # (Auto) 1.1 10^3/uL (0.2-0.9) H 06/03/22 04:35 Eos # (Auto) 0.2 10^3/uL (0.0-0.8) 06/03/22 04:35 Baso # (Auto) 0.1 10^3/uL (0.0-0.1) 06/03/22 04:35 Nucleated RBC % (auto) 0 % 06/03/22 04:35 Total Counted 100 (0-100) 05/27/22 02:55 Atypical Lymphs % 1.0 % (0-5) 05/27/22 02:55 Absolute Neutrophils 7.7 10^3/cmm (1.4-6.5) H 05/27/22 02:55 Segmented Neutrophils 64 % 05/27/22 02:55 Abs Segm Neuts (Man) 7.4 10/cmm (1.6-7.1) H 05/27/22 02:55 Band Neutrophils 3.0 % 05/27/22 02:55 Abs Band Neuts (Man) 0.3 10^3/cmm (0.0-1.2) 05/27/22 02:55 Absolute Lymphocytes 2.0 10^3/cmm (1.2-3.4) 05/27/22 02:55 Lymphocytes (Manual) 16 % 05/27/22 02:55 Monocytes (Manual) 5.0 % 05/27/22 02:55 Absolute Monocytes 0.6 10^3/cmm (0.1-0.6) 05/27/22 02:55 Eosinophils (Manual) 4 % 05/27/22 02:55 Absolute Eosinophils 0.4 10^3/cmm (0.0-0.7) 05/27/22 02:55 Basophils (Manual) Not Reportable 05/27/22 02:55 Metamyelocytes 5.0 % 05/27/22 02:55 Myelocytes 2.0 % 05/27/22 02:55 Nucleated RBCs # 0.0 /100WBC 06/03/22 04:35 Platelet Estimate Increased (Normal) 05/27/22 02:55 Hypochromasia 2+ H 05/27/22 02:55 Anisocytosis 1+ H 05/27/22 02:55 Microcytosis 1+ H 05/27/22 02:55 Ovalocytes 1+ H 05/27/22 02:55 PT 14.10 SECONDS (12.1-14.9) 05/15/22 20:30 INR 1.05 (0.8-1.2) 05/15/22 20:30 APTT 125.4 SECONDS (23.9-36.7) H D 05/19/22 08:17 D-Dimer 0.78 ug/mIFEU (0-0.59) H 05/15/22 20:30 Specimen Type Arterial 05/26/22 22:55 Sample Site Radial, right 05/26/22 22:55 ABG pH 7.45 (7.35-7.45) 05/26/22 22:55 ABG pCO2 43.5 mmHg (35-45) 05/26/22 22:55 ABG pO2 75.7 mmHg (80.0-100.0) L 05/26/22 22:55 ABG HCO3 30.4 mmol/L (22-26) H 05/26/22 22:55 ABG O2 Saturation 95.6 05/26/22 22:55 ABG Base Excess 5.8 mmol/L (-2.0-2.0) H 05/26/22 22:55 Scottie Test Pos 05/26/22 22:55 A-a O2 Gradient 39.1 mmHg (5-10) H 05/26/22 22:55 Hematocrit 28.1 % (42-52) L 05/26/22 22:55 Hgb O2 Saturation 93.9 % (95-100) L 05/26/22 22:55 Carboxyhemoglobin 1.1 %THgb (0.4-20.1) 05/26/22 22:55 Methemoglobin 0.7 % (0.4-1.5) 05/26/22 22:55 Total Hemoglobin 9.2 g/dL (14-18) L 05/26/22 22:55 Sodium 136.0 mmol/L (131-143) 05/26/22 22:55 Potassium 3.4 mmol/L (3.5-5.0) L 05/26/22 22:55 Glucose 181.0 mg/dL (70-115) H 05/26/22 22:55 Ionized Calcium 1.2 mmol/L (1.1-1.4) 05/26/22 22:55 O2 Delivery Device Bipap 05/26/22 22:55 O2 Liters/Min 15.0 % 05/18/22 06:00 FiO2 60.0 % 05/26/22 22:55 PEEP 6.0 cmH20 05/18/22 15:38 CPAP 12.0 cmH20 05/18/22 15:38 Philosophy Professor ID Droch 05/26/22 22:55 Sodium 136 mmol/L (136-145) 06/05/22 02:30 Potassium 3.9 mmol/L (3.5-5.1) 06/05/22 02:30 Chloride 98 mmol/L (98-107) 06/05/22 02:30 Carbon Dioxide 26 mmol/L (22-29) 06/05/22 02:30 Anion Gap 15.9 (5-19) 06/05/22 02:30 BUN 33 mg/dL (6-20) H 06/05/22 02:30 Creatinine 4.0 mg/dL (0.7-1.2) H 06/05/22 02:30 GFR Calculation 15.7 mL/min (90-130) L 06/05/22 02:30 Glucose 144 mg/dL (65-115) H 06/05/22 02:30 POC Glucose 104 mg/dL (70-110) 06/05/22 11:52 Calculated Osmolality 292 mOsm/kg (285-295) 06/05/22 02:30 Calcium 8.4 mg/dL (8.5-10.5) L 06/05/22 02:30 Phosphorus 4.6 mg/dL (2.5-4.5) H 06/05/22 02:30 Magnesium 2.2 mg/dL (1.7-2.3) 06/05/22 02:30 Iron 20 ug/dL (59-158) L 05/27/22 02:55 TIBC 128 mcg/dl 05/27/22 02:55 % Saturation 15.6 % (20-50) L 05/27/22 02:55 Unsat Iron Binding 108 ug/dL (112-347) L 05/27/22 02:55 Ferritin 228 ng/mL (30-400) 05/27/22 02:55 Total Bilirubin 0.2 mg/dL (0.15-1.2) 06/05/22 02:30 AST 11 U/L (0-40) 06/05/22 02:30 ALT < 5 U/L (0-41) 06/05/22 02:30 Alkaline Phosphatase 87 U/L (40-130) 06/05/22 02:30 Creatine Kinase 111 U/L (39-308) 05/17/22 12:02 Troponin T Baseline 80 ng/L (0-15) H 05/15/22 20:30 Troponin T 120 Minute 77.04 ng/L (0-15) H 05/15/22 22:28 Delta Troponin T -2.96 ABS# (0-10) L 05/15/22 22:28 Troponin T Hi Sens 6Hr 80.14 ng/L (0-15) H 05/16/22 02:52 Troponin T Hi Sens 6Hr Delta 0.14 ng/L (0-12) 05/16/22 02:52 C-Reactive Protein 98.8 mg/L (0.0-4.9) H 05/15/22 22:28 NT-Pro-B Natriuret Pep 9489 pg/mL (0-125) H 05/15/22 20:30 Total Protein 6.0 g/dL (6.6-8.7) L 06/05/22 02:30 Albumin 3.2 g/dL (3.5-5.2) L 06/05/22 02:30 Globulin 2.8 g/dL (1.3-4.6) 06/05/22 02:30 Triglycerides 155 mg/dL (0-150) H 05/18/22 03:26 Cholesterol 165 mg/dL (0-200) 05/18/22 03:26 LDL Cholesterol, Calc 101 mg/dL (50-129) 05/18/22 03:26 Total VLDL Cholesterol 31 mg/dL (0-30) H 05/18/22 03:26 HDL Cholesterol 33 mg/dL (60-100) L 05/18/22 03:26 Cholesterol/HDL Ratio 5.00 mg/dL (1.0-5.00) 05/18/22 03:26 Vitamin B12 919 pg/mL (232-1245) 05/17/22 12:02 Folate 9.6 ng/mL (4.5-32.2) 05/17/22 12:02 Procalcitonin 0.93 ng/mL (0-0.5) H 05/27/22 02:55 TSH 3.56 uIU/mL (0.27-4.20) 05/16/22 02:52 Urine Color Yellow (Yellow) 05/16/22 02:46 Urine Appearance Clear (CLEAR) 05/16/22 02:46 Urine pH 7 (5-7) 05/16/22 02:46 Ur Specific [place] 1.005 (1.005-1.030) 05/16/22 02:46 Urine Protein 3+ (Negative) H 05/16/22 02:46 Urine Glucose (UA) Norm (Normal) 05/16/22 02:46 Urine Ketones Negative (Negative) 05/16/22 02:46 Urine Blood Trace (Negative) H 05/16/22 02:46 Urine Nitrate Negative (Negative) 05/16/22 02:46 Urine Bilirubin Neg (Negative) 05/16/22 02:46 Urine Urobilinogen Norm mg/dL (Negative) 05/16/22 02:46 Ur Leukocyte Esterase Negative (Negative) 05/16/22 02:46 Urine RBC 0-4 /hpf (0-2) H 05/16/22 02:46 Urine WBC None /hpf (0-5) 05/16/22 02:46 Ur Squamous Epith Cells 0-4 /hpf (0-5) H 05/16/22 02:46 Amorphous Sediment Not Reportable 05/16/22 02:46 Urine Bacteria None /hpf (NONE) 05/16/22 02:46 Ur Random Urea Nitrogn 288 mg/dL 05/21/22 15:37 Urine Creatinine 49 mg/dL (39-259) 05/21/22 15:37 Nasal Influ A H1 2008 PCR Not detected (NOT DETECT) 05/18/22 07:45 Vancomycin Trough 20.6 ug/mL (10-15) H 05/20/22 07:55 Random Vancomycin 18.0 ug/mL (20.0-40.0) L 05/27/22 08:40 Adenovirus (PCR) Not detected (NOT DETECT) 05/18/22 07:45 C. pneumoniae DNA (PCR) Not detected (NOT DETECT) 05/18/22 07:45 Coronavirus 229E (PCR) Not detected (NOT DETECT) 05/18/22 07:45 Hep Bs Antigen Non-reactive (Nonreactive) 05/27/22 08:40 Hep Bs Antibody < 3.5 (11.5-1000) L 05/27/22 08:40 Hepatitis C Antibody Non-reactive (Nonreactive) 05/27/22 08:40 Human Metapneumovir PCR Not detected (NOT DETECT) 05/18/22 07:45 Influenza A (H1) PCR Not detected (NOT DETECT) 05/18/22 07:45 Influenza A (H3) PCR Not detected (NOT DETECT) 05/18/22 07:45 Influenza Type A (PCR) Not detected (NOT DETECT) 05/18/22 07:45 Influenza Type B (PCR) Not detected (NOT DETECT) 05/18/22 07:45 M. pneumoniae (PCR) Not detected (NOT DETECT) 05/18/22 07:45 Parainfluenza 1 (PCR) Not detected (NOT DETECT) 05/18/22 07:45 Parainfluenza 2 (PCR) Not detected (NOT DETECT) 05/18/22 07:45 Parainfluenza 3 (PCR) Not detected (NOT DETECT) 05/18/22 07:45 Parainfluenza 4 (PCR) Not detected (NOT DETECT) 05/18/22 07:45 RSV Type A (PCR) Not detected (NOT DETECT) 05/18/22 07:45 RSV Type B (PCR) Not detected (NOT DETECT) 05/18/22 07:45 Entero/Rhino (PCR) Not detected (NOT DETECT) 05/18/22 07:45 SARS-CoV-2 (PCR) Not detected (NOT DETECT) 05/18/22 07:45 SARS-CoV-2 Ag (Rapid) Cancelled 05/18/22 07:45 Vitals Last Vital Signs Temp 98.1 F 06/05/22 12:00 Pulse 90 06/05/22 14:45 Resp 18 06/05/22 14:45 BP 135/66 06/05/22 12:00 Pulse Ox 95 06/05/22 14:45 O2 Del Method 06/05/22 14:45 O2 Flow Rate 3 06/05/22 14:45 FiO2 50 06/01/22 02:00 Discharge Plan Discharge Patient Disposition: Home Health Service Condition: Stable Prescriptions: New bupropion HCl 300 mg Tablet Extended Release 24 Hr 150 mg PO QAM Qty: 90 0RF metoprolol tartrate 25 mg Tablet 12.5 mg PO BID@0600,1800 Qty: 90 0RF losartan 50 mg Tablet 25 mg PO DAILY Qty: 90 0RF gabapentin 100 mg Capsule 100 mg PO BID Qty: 180 0RF sevelamer carbonate 800 mg Tablet 800 mg PO TID Qty: 90 0RF Continued multivitamin [Daily Multi-Vitamin] Tablet 1 tab PO QPM Trulicity 0.75 mg/0.5 mL pen injector 0.75 mg SUBCUT Q7D Rx Instructions: ON SAT aspirin 81 mg tablet,delayed release (DR/EC) 81 mg PO DAILY@0600 promethazine 25 mg tablet 25 mg PO Q6H PRN (Reason: Pain) Eliquis 2.5 mg tablet 2.5 mg PO BID buspirone 5 mg tablet 5 mg PO TID Qty: 90 2RF trazodone 100 mg tablet 400 mg PO BEDTIME PRN (Reason: insomnia) Qty: 120 2RF nitroglycerin [Nitrostat] 0.4 mg tablet, sublingual 0.4 mg SUBLINGUAL Q5M PRN (Reason: Chest Pain) Qty: 25 2RF atorvastatin 40 mg tablet 40 mg PO QAM Qty: 90 2RF ranolazine [Ranexa] 500 mg tablet extended release 12 hr 500 mg PO BID Qty: 180 3RF insulin lispro [Humalog U-100 Insulin] 100 unit/mL solution See Rx Instructions .ROUTE .COMPLEX Rx Instructions: SLIDING SCALE BID @06,18 docusate sodium [Colace] 100 mg capsule 100 mg PO BID Qty: 30 0RF cyclobenzaprine 10 mg tablet 10 mg PO TID PRN (Reason: MUSCLE SPASMS) levothyroxine 88 mcg tablet 88 mcg PO QAM Tresiba FlexTouch U-200 200 unit/mL (3 mL) insulin pen 38 unit SUBCUT BEDTIME lidocaine 5 % adhesive patch,medicated 1 patch transdermal PRN PRN (Reason: Pain) calcitriol 0.25 mcg capsule See Rx Instructions .ROUTE .COMPLEX Rx Instructions: 0.25 mcg orally ON SATURDAY,SATURDAY AND SATURDAY Discontinued citalopram 40 mg tablet 40 mg PO DAILY Qty: 30 2RF bupropion HCl [Wellbutrin XL] 300 mg tablet extended release 24 hr 300 mg PO QAM Qty: 30 2RF isosorbide mononitrate 30 mg tablet extended release 24 hr 30 mg PO BID@0600,1800 Qty: 180 3RF amlodipine 5 mg Tablet 5 mg PO DAILY Qty: 0 0RF metoprolol tartrate 50 mg tablet 25 mg PO BID@0600,1800 Qty: 0 0RF bumetanide 2 mg tablet 2 mg PO BID 30 Days Qty: 60 0RF potassium chloride 20 mEq tablet,ER particles/crystals 10 meq PO DIRECTED 30 Days Qty: 30 0RF Rx Instructions: 40 mEq PO Take 2 tabs in morning and afternoon and 1 tab in evening; metolazone 5 mg tablet 5 mg PO EVERY OTHER DAY Discharge Orders: Discharge Order (Routine); Ordered 06/05/22 Ordered By: Andrew Gonzalez Other Ambulatory Orders: DME: Oxygen (Order) Location: None Selected Ordered By: Andrew Gonzalez Referrals: [facility] [Other] (You have been arranged with [facility] in [place] for Saturday, , and Saturdays. If you have any questions or concerns please call them at [phone]. If you need to speak to someone in the main admissions office please contact them at [phone].) [facility] [Other] ([facility] is [facility] transport. They are able to assist you with rides to doctors appointments if needed. Please call them at [phone].) [facility] [place] [facility] ([facility]) [Outside] Amalia Mccain FNP [Nurse Practitioner] - 06/18/22 1:30 pm Kp Montanez DO [Primary Care Provider] - 06/11/22 2:15 pm Discharge Diet: As Directed, Cardiac and Diabetic Discharge Activity: Increase activity as tolerated and As per PT/OT instructions Patient Instructions: Metoprolol (By mouth), Bupropion (By mouth), Gabapentin (By mouth), Losartan (By mouth), Sevelamer (By mouth), Dialysis Diet (GEN), How to Care for Your Chest or Abdominal Catheter (GEN), Aspiration Precautions (GEN), Opioid Safety Activity Restrictions/Additional Instructions: Continue fluid restriction 1200 mL/day. Follow-up with cardiology and your primary doctor for congestive heart failure, as well as for reassessment for resolution of aspiration pneumonia. Follow-up with regards to renal failure. Follow-up with nephrology. Of your primary doctor also reassess continued healing of wounds on left leg. Continue follow-up regarding peripheral neuropathy. Continue to monitor blood pressures at home 3 times daily for hypertension, write down values to allow for continued optimization on follow-up. Follow-up with your primary doctor and toddler lead teacher regarding anemia. As your pain is improving, decrease hydrocodone use due to risk of tolerance and dependence as discussed. Follow-up with your primary doctor for continued pain optimization. Seek medical attention immediately in case increasing redness, swelling or worse pain in the right shoulder or arm. Keep dialysis catheter free of contamination due to risk of infection. Maintain cardiac, diabetic, renal hemodialysis diet. Discharge Attestations Time Spent in Discharge Care*: greater than 30 min Status at Discharge: Cognitive status at discharge: cognitively intact , Behavioral status at discharge: cooperative and independent in ADL's , Quality Metrics Clinical Quality Measures [ No reported AMI, CVA or VTE this stay] Coding Level of Care Code Acute [facility] note Diagnoses ESRD (end stage renal disease) N18.6
--- NOTE | 2022-06-06 09:58 | PC.NURSE ---
patient was not discharged out of the system when he left 06/05/22 at approximately 1845. this nurse documented pt out of the system for current time 1000 06/06/22, due to system not allowing proper discharge time to be put in.
== END 2022-06-06 09:58 | disposition home health service (06) | DRG 673 ==
LOC: ER 22:22 → MEDSURG 05-16 00:31
PROVIDERS: Emergency Medicine; Family Medicine; Internal Medicine; Internal Medicine Nephrology; Student in an Organized Health Care Education/Training Program; Surgery; Admitting Provider Family Medicine; Emergency Provider Emergency Medicine; PCP Internal Medicine; Visit Provider Internal Medicine
PROC: 0JH63XZ Insertion of Tunneled Vascular Access Device into Chest Subcutaneous Tissue and Fascia, Percutaneous Approach (ICD-10-PCS; principal; 2022-06-01 12:40)
PROC: 0JH63XZ Insertion of Tunneled Vascular Access Device into Chest Subcutaneous Tissue and Fascia, Percutaneous Approach (ICD-10-PCS; CPT 49422; 2022-06-01 12:40)
PROC: 0JH63XZ Insertion of Tunneled Vascular Access Device into Chest Subcutaneous Tissue and Fascia, Percutaneous Approach (ICD-10-PCS; 2022-06-01 12:40)
DX: N17.9 Acute kidney failure, unspecified (principal); G93.41 Metabolic encephalopathy; I50.23 Acute on chronic systolic (congestive) heart failure; J69.0 Pneumonitis due to inhalation of food and vomit; J96.21 Acute and chronic respiratory failure with hypoxia; I13.2 Hypertensive heart and chronic kidney disease with heart failure and with stage 5 chronic kidney disease, or end stage renal disease; L03.116 Cellulitis of left lower limb; L02.416 Cutaneous abscess of left lower limb; E87.1 Hypo-osmolality and hyponatremia; F33.9 Major depressive disorder, recurrent, unspecified; N18.6 End stage renal disease; E11.22 Type 2 diabetes mellitus with diabetic chronic kidney disease; R07.9 Chest pain, unspecified; I25.10 Atherosclerotic heart disease of native coronary artery without angina pectoris; Z95.5 Presence of coronary angioplasty implant and graft; I25.5 Ischemic cardiomyopathy; I25.2 Old myocardial infarction; Z86.718 Personal history of other venous thrombosis and embolism; Z86.711 Personal history of pulmonary embolism; E78.5 Hyperlipidemia, unspecified; E03.9 Hypothyroidism, unspecified; E11.42 Type 2 diabetes mellitus with diabetic polyneuropathy; E11.649 Type 2 diabetes mellitus with hypoglycemia without coma; E11.21 Type 2 diabetes mellitus with diabetic nephropathy; Z88.2 Allergy status to sulfonamides; Z91.041 Radiographic dye allergy status; E87.6 Hypokalemia; B95.62 Methicillin resistant Staphylococcus aureus infection as the cause of diseases classified elsewhere; M21.372 Foot drop, left foot; Z79.4 Long term (current) use of insulin; Z79.891 Long term (current) use of opiate analgesic; Z79.82 Long term (current) use of aspirin; Z79.85 Long-term (current) use of injectable non-insulin antidiabetic drugs; D50.9 Iron deficiency anemia, unspecified; D63.1 Anemia in chronic kidney disease
CPT/HCPCS: 10060; 12345; 36415; 36416; 36591; 36592; 36600; 51798; 70450; 71045; 71250; 74176; 74230; 76000; 76770; 76857; 77001; 78452; 80048; 80051; 80053; 80061; 80202; 81001; 82330; 82550; 82570; 82607; 82728; 82746; 82805; 82962; 83540; 83550; 83735; 83880; 84100; 84145; 84443; 84484; 84540; 85007; 85025; 85049; 85378; 85610; 85730; 86140; 86706; 86803; 87040; 87070; 87075; 87077; 87106; 87186; 87205; 87340; 87486; 87581; 87633; 87641; 90935; 92507; 92523; 92526; 92610; 92611; 93005; 93017; 93925; 93971; 94640; 94660; 94664; 94760; 96365; 96372; 96374; 96375; 97110; 97116; 97161; 97165; 97530; 97535; 99285; A9281; A9500; C1750; C9113; G0378; J0690; J0692; J0885; J1170; J1200; J1644; J1756; J1815; J1940; J2270; J2543; J2550; J2704; J2785; J3010; J3370; J3490; J7030; J7050; J7613; J7614; J7626; J7644; P9046; P9047; Q3014

== ENCOUNTER → 2022-06-12 11:38 | Outpatient (BNVA) | payer MEDICARE, MEDICAID, SELFPAY | PROVIDERS: PCP Internal Medicine; Visit Provider Podiatrist Foot & Ankle Surgery | DX: E11.42 Type 2 diabetes mellitus with diabetic polyneuropathy (principal); M20.42 Other hammer toe(s) (acquired), left foot; L60.3 Nail dystrophy; Z79.4 Long term (current) use of insulin | CPT/HCPCS: 11721 ==

== ENCOUNTER → 2022-06-18 12:45 | Outpatient (BNVA) | payer MEDICARE, MEDICAID, SELFPAY | PROVIDERS: PCP Internal Medicine; Visit Provider Internal Medicine Cardiovascular Disease | DX: I42.9 Cardiomyopathy, unspecified (principal); I25.10 Atherosclerotic heart disease of native coronary artery without angina pectoris; R07.9 Chest pain, unspecified; E66.9 Obesity, unspecified; Z68.38 Body mass index [BMI] 38.0-38.9, adult; I82.622 Acute embolism and thrombosis of deep veins of left upper extremity; I13.2 Hypertensive heart and chronic kidney disease with heart failure and with stage 5 chronic kidney disease, or end stage renal disease; E11.22 Type 2 diabetes mellitus with diabetic chronic kidney disease; N18.6 End stage renal disease; I50.22 Chronic systolic (congestive) heart failure; Z79.4 Long term (current) use of insulin; Z79.01 Long term (current) use of anticoagulants | CPT/HCPCS: 99214; Q3014 ==

== ENCOUNTER → 2022-07-11 09:38 | Day surgery (SDC) | payer MEDICARE, MEDICAID, SELFPAY ==
[2022-07-11 09:50] VITALS: BP 111/65; PULSE 77; RESP 18; TEMP 36.6; O2SAT 95
--- NOTE | 2022-07-11 09:50 | PC.NURSE ---
Pt to GI infusions for port flush. [facility] and Dr. Montanez, PCP, contacted to ensure no labs needed. No labs requested at this time. Port to left subclavian flushed without difficulty. Pt tolerated well.
== END ==
PROVIDERS: PCP Internal Medicine; Visit Provider Internal Medicine
DX: Z95.828 Presence of other vascular implants and grafts (principal)
CPT/HCPCS: 96523

== ENCOUNTER → 2022-08-08 09:29 | Day surgery (SDC) | payer MEDICARE, MEDICAID, SELFPAY ==
[2022-08-08 09:35] VITALS: BP 126/39; PULSE 76; RESP 18; TEMP 36.2; O2SAT 98
--- NOTE | 2022-08-08 09:51 | PC.NURSE ---
Pt to GI infusions for port flush. Left implanted port accessed and flushed per protocol. Deaccessed following procedure. Pt tolerated well. Good blood return noted.
== END ==
LOC: GILAB 09:32
PROVIDERS: PCP Internal Medicine; Visit Provider Internal Medicine
DX: Z95.828 Presence of other vascular implants and grafts (principal)
CPT/HCPCS: 96523

== ENCOUNTER 2022-08-16 09:38 | Observation (INO) | payer MEDICARE, MEDICAID, SELFPAY ==
[2022-08-16] VITALS (9 sets, daily range): BP systolic 119–166; BP diastolic 64–82; PULSE 72–82; RESP 16–18; TEMP 36.3–36.8; O2SAT 90–95; BMI 39.9
--- NOTE | 2022-08-16 09:41 | ECG_ITS ---
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 Measurements Intervals [place] Rate: 72 P: 36 KS: 239 QRS: -24 QRSD: 90 T: 126 QT: 303 QTc: 332 Interpretive Statements SINUS RHYTHM WITH FIRST DEGREE AV BLOCK ANTEROSEPTAL MYOCARDIAL INFARCTION , OF INDETERMINATE AGE [40+ ms Q WAVE IN V1-V4] MODERATE T-WAVE ABNORMALITY, CONSIDER LATERAL ISCHEMIA [-0.1+ mV T-WAVE IN I/aVL/V5/V6] Compared to ECG 05/18/2022 08:11:35 First degree AV block now present T-wave abnormality now present Possible ischemia now present Sinus tachycardia no longer present Myocardial infarct finding still present Electronically Signed On 08-16-2022 18:42:46 CDT by Garrison Mckinney M.D. [email or web address]
--- NOTE | 2022-08-16 09:41 | XR_ITS ---
WS: [id number] Exam: XR chest 1V portable [id number] Date/Time of Exam: 08/16/2022 10:22 AM Reason For Exam: dyspnea/cough Comparison 06/01/2022. The lungs are clear and fully expanded. Heart size is normal. Signs of median sternotomy. The mediast inum is normal in contour. A left subclavian port ends in the lower one third of the SVC in good posi tion. There is also a double lumen right subclavian dialysis catheter ending at about the same locati on. Signs of coronary artery stenting. XR/XR chest 1V portable [id number] IMPRESSION: 1. No acute cardiopulmonary process identified. 2. Right subclavian dialysis catheter and left subclavian port both ending in t he region of the distal SVC.
--- NOTE | 2022-08-16 09:41 | CT_ITS ---
WS: [id number] CT HEAD TECHNIQUE: Noncontrast CT of the head obtained from the skullbase to the vertex. CLINICAL INFORMATION: AMS COMPARISON: CT May 18, 2022 and December 01, 2019 DLP: 1335.[address] scans at [facility] use at least one of these dose optimization techniques: automated e xposure control; mA and/or kV adjustment per patient size (includes targeted exams where dose is matc hed to clinical indication); or iterative reconstruction. FINDINGS: No evidence of intracranial hemorrhage or mass effect. Ventricular system and basal cisterns are menendez nt. Mild parenchymal volume loss. Vascular calcification. Dense vascular calcification in a RIGHT MCA branch along the anterior temporal lobe is unchanged since 2019. No extra-axial fluid collections. N o evidence of mass or mass effect. Normal blanco-white differentiation. Paranasal sinuses and mastoid air cells are well aerated. .Normal visualized soft tissues. CT/CT head wo con* [id number] IMPRESSION: 1. No evidence of intracranial hemorrhage or mass effect. 2. No acute intracranial findings.
[2022-08-16 09:57] LABS: ABG PCO2 42.7 mmHg (35-45); ABG PH Result 7.42 (7.35-7.45); Alveolar-Arterial Oxygen Gradi 4.5 mmHg (5-10); Arterial Blood Gas Hematocrit 37.1 % (42-52); Base Excess ABG 2.6 mmol/L (-2.0-2.0); Blood Gas Allen Test Pos; Blood Gas Operator Identificat CAK; Blood Gas Sample Site Radial, left; Blood Gas Sample Type Arterial; Carboxyhemoglobin 0.4 %THgb (0.4-20.1); HCO3 ABG 27.5 mmol/L (22-26); HGB O2 Sat 90.7 % (95-100); Ionized Calcium Level - ABG 1.2 mmol/L (1.1-1.4); Methemoglobin 0.8 % (0.4-1.5); Oxygen Device ROOM AIR; Oxygen Saturation ABG 91.8; PO2 ABG 62.9 mmHg (80.0-100.0); Total Hemoglobin 12.1 g/dL (14-18)
[2022-08-16 10:08] LABS: Basophils # 0.1 10^3/uL (0.0-0.1); Basophils % 0.4 %; Eosinophils # 0.1 10^3/uL (0.0-0.8); Eosinophils % 0.9 %; Hematocrit 37.8 % (42.0-52.0); Hemoglobin 12.1 g/dL (11.7-16.6); Lymphocytes # 1.4 10^3/uL (0.8-4.8); Lymphocytes % 10.9 %; Mean Corpuscular Volume 96.9 fl (80-94); Mean Platelet Volume 8.7 fL (7.4-10.4); Monocytes # 0.8 10^3/uL (0.2-0.9); Monocytes % 5.9 %; Neutrophils # 10.57 10^3/uL (1.8-7.7); Neutrophils % 81.4 %; Nucleated Red Blood Cells % 0 %; Platelet Count 233 10^3/cmm (130-400); Red Cell Distribution Width 15.8 % (12.1-15.1)
[2022-08-16 10:25] LABS: Lactic Sepsis W/Reflex 0.9 mmol/L (0.5-2.2)
--- NOTE | 2022-08-16 10:39 | PC.PHAR ---
PTS BROUGHT IN MED BOTTLES AND VERIFIED PTS MEDS-PTS BROUGHT IN MED BOTTLE FOR WELLBUTRIN XL 150MG QAM-RX FILLED FOR 300MG QAM ON 08/10/22 [facility] STATES RX PICKED UP 08/13/22-PTS STATES THEY HAVENT PICKED UP THE 300MG DOSE-NOTES ARE MADE IN THE PHARMACY COMMENTS
[2022-08-16 10:54] LABS: Alanine Aminotransferase 18 U/L (0-41); Albumin Level 4.2 g/dL (3.5-5.2); Alkaline Phosphatase 87 U/L (40-130); Anion Gap 25.2 (5-19); Aspartate Amino Transferase 21 U/L (0-40); Blood Urea Nitrogen 51 mg/dL (6-20); Calcium 8.2 mg/dL (8.5-10.5); Carbon Dioxide 22 mmol/L (22-29); Chloride 93 mmol/L (98-107); Globulin 2.3 g/dL (1.3-4.6); Glomerular Filtration Rate 14.1 mL/min (90-130); Glucose 72 mg/dL (65-115); Osmolality Calculated 294 mOsm/kg (285-295); Potassium 4.2 mmol/L (3.5-5.1); Sodium 136 mmol/L (136-145); Total Bilirubin 0.4 mg/dL (0.15-1.2); Total Protein 6.5 g/dL (6.6-8.7)
--- NOTE | 2022-08-16 11:00 | ED_ITS ---
HPI - Dizziness General: Chief Complaint: Dizziness Stated Complaint: AMS Time Seen by Provider: 08/16/22 09:40 Source: patient Mode of arrival: EMS History of Present Illness: HPI Narrative: 52-year-old male presents to the emergency room with altered mental status. His significant other is with him at the bedside he seemed a little bit slow yesterday and acting oddly but then today he was extremely off his baseline. He was walking around the house naked which is unusual for him he tried to put her clothes on. He was talking nonsensically. She said that yesterday they had some combination about finances what they would do for expenses when some family came to visit. When I went to see the patient today the only thing he could really tell me was that he had urinated first thing this morning this began after he had been told he needed a urine sample. He denies chest pain or abdominal pain he has not been complained [place] him specific to his . Review of Systems General: Reports: ROS unobtainable due to mental status PFSH ED PFSH: Medical History Acute kidney injury superimposed on CKD Acute on chronic congestive heart failure Alcohol use disorder, moderate, in sustained remission Anemia Atherosclerotic heart disease of [place] coronary artery with other forms of angina pectoris hx of CAD with prior stenting of proximal LAD, LCx, RCA Chronic anticoagulation Eliquis Chronic kidney disease -baseline Cr appears to be around 1.5 Chronic systolic heart failure D-dimer, elevated Depression Diabetes A1c-7.6 (08/2019) Diabetes DVT (deep venous thrombosis) (~03/2020) Proximal left subclavian, basilic and brachial veins, started eliquis this stay, felt present prior to admission ESRD (end stage renal disease) ESRD (end stage renal disease) Foot drop, left Generalized anxiety disorder GERD (gastroesophageal reflux disease) H/O acute myocardial infarction H/O deep venous thrombosis developed compartment syndrome History of pulmonary embolism Hyperlipidemia Hypertension Hypothyroidism Ischemic cardiomyopathy Major depressive disorder, recurrent severe without psychotic features Onychodystrophy Osteoarthritis of spine Uremic encephalopathy Surgical History H/O colonoscopy (11/14/20) 08/2015 H/O esophagogastroduodenoscopy (11/14/20) 08/2015 H/O removal of testicle left H/O skin graft H/O vasectomy History of appendectomy 1995 History of coronary artery stent placement 5x History of excision of mass 06/08/2019: Subcutaneous mass on back History of inguinal hernia repair, bilateral 1999 History of removal of Port-a-Cath Hx of cholecystectomy Peritoneal dialysis catheter in situ (06/15/21) Port-A-Cath in place Family History Grandfather Cancer skin cancer Parkinson disease Brother Hypertension Father Heart disease Mother Hypertension Stroke Aneurysm Grandmother Aneurysm Other Crohn disease Denies family history of Anesthesia complication Bleeding disorder Social History Smoking and tobacco status: never smoked Second hand smoke exposure: No Smoking risk assessment/counseling performed?: No Alcohol intake: former Year of sobriety/quit date alcohol: 2015 Former alcohol use details: Only holidays Desire information about alcohol rehabilitation?: No Counseling given: No Desire information about substance/drug rehabilitation?: No Counseling given: No Lives independently: Yes Household members: significant other Marital status: Single Current occupational status: disabled Physical Exam Const: GENERAL APPEARANCE: cooperative and comfortable HENMT: COMMON NORMALS: normocephalic, atraumatic and hearing grossly normal bilaterally HEAD & SCALP: normocephalic and atraumatic Resp: COMMON NORMALS: normal respiratory effort, No retractions, No use of accessory muscles and clear to auscultation bilaterally AUSCULTATION: clear to auscultation bilaterally Cardio: COMMON NORMALS: regular rate, regular rhythm and No murmurs present (Cardio) RATE: regular rate RHYTHM: regular rhythm GI: COMMON NORMALS: Soft to palpation and No hepatosplenomegaly present AUSCULTATION: Yes normoactive bowel sounds PALPATION: Yes Soft to palpation, No Tenderness to palpation present (GI), No Guarding due to palpation present (GI) and Yes No hepatosplenomegaly present Extremity: COMMON NORMALS: normal to inspection, capillary refill normal, no clubbing, cyanosis or edema, no calf tenderness and no pedal edema Skin: COMMON NORMALS: no rashes or lesions noted GENERAL SKIN EXAM: no rashes or lesions noted Course Vital Signs: Vital signs: Vital Signs Temperature 98.1 F 08/17/22 07:54 Pulse Rate 70 03/31/23 11:22 Respiratory Rate 16 08/17/22 11:22 Blood Pressure 133/80 08/17/22 07:54 Pulse Oximetry 91 08/17/22 11:22 Oxygen Delivery Me thod 08/17/22 09:34 MDM - Dizziness Medical Decision Making Patient has a mild encephalopathy. He is due for dialysis today. Labs and imaging reviewed. Patient is moderately hypertensive initially. says he did take his medications today. His symptoms improved while he was here when he initially came he could only tell me that he had urinated this morning. He did become more aware later on. Will admit for observation he will need to do his usual run of dialysis. No finding of an faction as a source. Suspect that is uremic encephalopathy. Medical Records I reviewed the patient's medical records. Lab Data I reviewed the patient's lab results. 08/16/22 10:02 08/16/22 10:02 Radiology Impressions Chest X-Ray 08/16/22 09:41 IMPRESSION: 1. No acute cardiopulmonary process identified. 2. Right subclavian dialysis catheter and left subclavian port both ending in the region of the distal SVC. Head CT 08/16/22 09:41 IMPRESSION: 1. No evidence of intracranial hemorrhage or mass effect. 2. No acute intracranial findings. Laboratory Results WBC 13.0 10^3/uL (4.0-10.0) H 08/16/22 10:02 RBC 3.90 10^6/uL (4.1-5.3) L 08/16/22 10:02 Hgb 12.1 g/dL (11.7-16.6) 08/16/22 10:02 Hct 37.8 % (42.0-52.0) L 08/16/22 10:02 MCV 96.9 fl (80-94) H 08/16/22 10:02 MCH 31.0 pg (28.0-34.0) 08/16/22 10:02 MCHC 32.0 g/dL (30.0-36.0) 08/16/22 10:02 RDW 15.8 % (12.1-15.1) H 08/16/22 10:02 Plt Count 233 10^3/cmm (130-400) 08/16/22 10:02 MPV 8.7 fL (7.4-10.4) 08/16/22 10:02 Neut % (Auto) 81.4 % 08/16/22 10:02 Lymph % (Auto) 10.9 % 08/16/22 10:02 Cottle % (Auto) 5.9 % 08/16/22 10:02 Eos % (Auto) 0.9 % 08/16/22 10:02 Baso % (Auto) 0.4 % 08/16/22 10:02 Neut # (Auto) 10.57 10^3/uL (1.8-7.7) H 08/16/22 10:02 Lymph # (Auto) 1.4 10^3/uL (0.8-4.8) 08/16/22 10:02 Cottle # (Auto) 0.8 10^3/uL (0.2-0.9) 08/16/22 10:02 Eos # (Auto) 0.1 10^3/uL (0.0-0.8) 08/16/22 10:02 Baso # (Auto) 0.1 10^3/uL (0.0-0.1) 08/16/22 10:02 Nucleated RBC % (auto) 0 % 08/16/22 10:02 Nucleated RBCs # 0.0 /100WBC 08/16/22 10:02 Specimen Type Arterial 08/16/22 09:46 Sample Site Radial, left 08/16/22 09:46 ABG pH 7.42 (7.35-7.45) 08/16/22 09:46 ABG pCO2 42.7 mmHg (35-45) 08/16/22 09:46 ABG pO2 62.9 mmHg (80.0-100.0) L 08/16/22 09:46 ABG HCO3 27.5 mmol/L (22-26) H 08/16/22 09:46 ABG O2 Saturation 91.8 08/16/22 09:46 ABG Base Excess 2.6 mmol/L (-2.0-2.0) H 08/16/22 09:46 Scottie Test Pos 08/16/22 09:46 A-a O2 Gradient 4.5 mmHg (5-10) L 08/16/22 09:46 Hematocrit 37.1 % (42-52) L 08/16/22 09:46 Hgb O2 Saturation 90.7 % (95-100) L 08/16/22 09:46 Carboxyhemoglobin 0.4 %THgb (0.4-20.1) 08/16/22 09:46 Methemoglobin 0.8 % (0.4-1.5) 08/16/22 09:46 Total Hemoglobin 12.1 g/dL (14-18) L 08/16/22 09:46 Sodium 135.0 mmol/L (131-143) 08/16/22 09:46 Potassium 4.0 mmol/L (3.5-5.0) 08/16/22 09:46 Glucose 81.0 mg/dL (70-115) 08/16/22 09:46 Ionized Calcium 1.2 mmol/L (1.1-1.4) 08/16/22 09:46 O2 Delivery Device Room air 08/16/22 09:46 Sustainable Landscape Architect ID Cak 08/16/22 09:46 Sodium 136 mmol/L (136-145) 08/16/22 10:02 Potassium 4.2 mmol/L (3.5-5.1) 08/16/22 10:02 Chloride 93 mmol/L (98-107) L 08/16/22 10:02 Carbon Dioxide 22 mmol/L (22-29) 08/16/22 10:02 Anion Gap 25.2 (5-19) H 08/16/22 10:02 BUN 51 mg/dL (6-20) H 08/16/22 10:02 Creatinine 4.4 mg/dL (0.7-1.2) H 08/16/22 10:02 GFR Calculation 14.1 mL/min (90-130) L 08/16/22 10:02 Glucose 72 mg/dL (65-115) 08/16/22 10:02 Estimat Average Glucose 148 08/16/22 10:02 Hemoglobin A1c 6.8 % (4.0-6.0) H 08/16/22 10:02 Calculated Osmolality 294 mOsm/kg (285-295) 08/16/22 10:02 Lactic Acid 0.9 mmol/L (0.5-2.2) 08/16/22 10:02 Calcium 8.2 mg/dL (8.5-10.5) L 08/16/22 10:02 Total Bilirubin 0.4 mg/dL (0.15-1.2) 08/16/22 10:02 AST 21 U/L (0-40) 08/16/22 10:02 ALT 18 U/L (0-41) 08/16/22 10:02 Alkaline Phosphatase 87 U/L (40-130) 08/16/22 10:02 Ammonia 27 umol/L (16-60) 08/16/22 11:28 Total Protein 6.5 g/dL (6.6-8.7) L 08/16/22 10:02 Albumin 4.2 g/dL (3.5-5.2) 08/16/22 10:02 Globulin 2.3 g/dL (1.3-4.6) 08/16/22 10:02 TSH 1.23 uIU/mL (0.27-4.20) 08/16/22 10:02 Salicylates 1.0 mg/dL (3-10) L 08/16/22 11:28 Acetaminophen < 5.0 ug/mL (10-30) L 08/16/22 11:28 Ethyl Alcohol < 10 mg/dL (0-10) 08/16/22 11:28 Serum Ketones Negative (Negative) 08/16/22 10:02 Hepatitis A IgM Ab Non-reactive (Nonreactive) 08/16/22 10:02 Hep Bs Antigen Non-reactive (Nonreactive) 08/16/22 10:02 Hep Bs Antibody 420.6 (11.5-1000) 08/16/22 10:02 Hep B Core Total Ab Non-reactive (Nonreactive) 08/16/22 10:02 Hepatitis C Antibody Non-reactive (Nonreactive) 08/16/22 10:02 Discharge Plan Discharge Patient Disposition: Admitted As Inpatient Admit Provider: Rosi Etienne Clinical Impression: Uremic encephalopathy, Hypertension, Stage 5 chronic kidney disease Condition: Stable Coding Level of Care Code ED 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
[2022-08-16 11:05] LABS: Ketone (Acetest) Serum Negative (Negative)
[2022-08-16 12:03] LABS: Acetaminophen < 5.0 ug/mL (10-30); Alcohol Level < 10 mg/dL (0-10); Ammonia 27 umol/L (16-60)
--- NOTE | 2022-08-16 12:14 | PM.HP ---
Providers/Chief Complaint Primary Care Provider: Kp Montanez DO Chief Complaint: AMS History of Present Illness Rei Queen II is a 52 year old male renal dialysis dependent, Saturday, brought in by his for bizarre behavior. Patient has been repeating 1 sentence multiple times today that prompted his visit to the ER. In the ER he has been diagnosed with uremic encephalopathy. No other source of infection identified. I have requested TSH and B12 Patient is hypertensive, patient is slightly confused, no chest pain, shortness of breath diarrhea or vomiting. Review of Systems Const: Denies: fever(s) Eyes: Denies: change in vision ENMT: Denies: throat pain Card: Denies: chest pain Resp: Denies: dyspnea GI: Denies: abdominal pain : Denies: flank pain Musc: Denies: neck pain Skin/Breast: Denies: rash Neuro: Reports: headache(s) Psych: Reports: anxiety and mood swings Endo: Denies: polyuria Dewey/Lymph: Denies: easy bruising All/Imm: Denies: urticaria Medications/Allergies Home Medications Medication Instructions Recorded Confirmed Last Taken Type aspirin 81 mg tablet,delayed 81 mg PO QAM 06/01/19 08/16/22 08/16/22 History release insulin lispro 100 unit/mL See Rx Instructions .Route 09/25/20 08/16/22 08/16/22 History subcutaneous solution (Humalog .COMPLEX see pharmacy comments 6 UNITS U-100 Insulin) levothyroxine 88 mcg tablet 88 mcg PO QAM 02/09/21 08/16/22 08/16/22 History promethazine 25 mg tablet 25 mg PO Q6H PRN Nausea And 02/22/21 08/16/22 08/08/22 History Vomiting lidocaine 5 % topical patch 1 patch transdermal DAILY PRN Pain 05/12/21 08/16/22 08/08/22 History docusate sodium 100 mg capsule 100 mg PO BID #30 caps 06/15/21 08/16/22 08/16/22 Rx (Colace) apixaban 2.5 mg tablet (Eliquis) 2.5 mg PO BID 09/14/21 08/16/22 08/16/22 History insulin degludec 200 unit/mL (3 50 unit SUBCUT BEDTIME 12/11/21 08/16/22 08/15/22 History mL) subcutaneous pen (Tresiba FlexTouch U-200 insulin) atorvastatin 40 mg tablet 40 mg PO QAM #90 tabs 12/19/21 08/16/22 08/16/22 Rx ranolazine 500 mg tablet,extended 500 mg PO BID #180 tabs 01/02/22 08/16/22 08/16/22 Rx release,12 hr (Ranexa) gabapentin 100 mg capsule 100 mg PO BID #180 caps 06/05/22 08/16/22 08/16/22 Rx baclofen 5 mg tablet 5 mg PO BID PRN Muscle Pain 06/18/22 08/16/22 08/08/22 History nitroglycerin 0.4 mg sublingual 0.4 mg sublingual Q5M PRN Chest 06/18/22 08/16/22 08/08/22 Rx tablet (Nitrostat) Pain #25 tabs sevelamer carbonate 800 mg tablet 800 mg PO TID 06/18/22 08/16/22 08/16/22 History bupropion HCl 300 mg 24 hr tablet, 300 mg PO QAM #30 tabs 08/10/22 08/16/22 08/16/22 Rx extended release (Wellbutrin XL) 150MG-[facility] C buspirone 5 mg tablet 5 mg PO TID #90 tabs 08/10/22 08/16/22 08/16/22 Rx trazodone 100 mg tablet 400 mg PO BEDTIME PRN insomnia 08/10/22 08/16/22 Unknown Rx #120 tabs vitamin B complex with vit C-folic 1 tab PO QPM 08/10/22 08/16/22 08/15/22 History acid 800 mcg-zinc 12.5 mg tablet (RenaPlex) bumetanide 2 mg tablet 4 mg PO BID 08/16/22 08/16/22 08/16/22 History dulaglutide 1.5 mg/0.5 mL 1.5 mg SUBCUT Q7D 08/16/22 08/16/22 Unknown History subcutaneous pen injector (Trulicity) losartan 50 mg tablet 25 mg PO BEDTIME 08/16/22 08/16/22 08/15/22 History metoprolol tartrate 25 mg tablet See Rx Instructions .Route .COMPLEX 08/16/22 08/16/22 08/15/22 History Allergies Allergy/AdvReac Type Severity Reaction Status Date / Time Iodinated Contrast Media Allergy Severe ALGY-Difficulty Verified 08/10/22 15:52 Breathing iodine Allergy Severe ALGY-Difficulty Verified 08/10/22 15:52 Breathing metoclopramide [From Reglan] Allergy Severe ALGY-Difficulty Verified 08/10/22 15:52 Breathing nalbuphine [From Nubain] Allergy Severe ADR-Diarrhe Verified 08/10/22 15:52 a naproxen [From Naprosyn] Allergy Severe ADR-Vomitin Verified 08/10/22 15:52 g Sulfa (Sulfonamide Allergy Severe ALGY-Difficulty Verified 08/10/22 15:52 Antibiotics) Breathing ketorolac Allergy Intermediate ADR-Nausea Verified 08/10/22 15:52 ondansetron [From Zofran] Allergy Intermediate ADR-Abdominal Verified 08/10/22 15:52 Pain prochlorperazine Allergy Intermediate ADR-Irritab Verified 08/10/22 15:52 [From Compazine] le codeine AdvReac Severe ALGY-Anaphy Verified 08/10/22 15:52 laxis haloperidol [From Haldol] AdvReac Intermediate ADR-Irritab Verified 08/10/22 15:52 le PFSH Acute PFSH: Medical History Acute kidney injury superimposed on CKD Acute on chronic congestive heart failure Alcohol use disorder, moderate, in sustained remission Anemia Atherosclerotic heart disease of [place] coronary artery with other forms of angina pectoris hx of CAD with prior stenting of proximal LAD, LCx, RCA Chronic anticoagulation Eliquis Chronic kidney disease -baseline Cr appears to be around 1.5 Chronic systolic heart failure D-dimer, elevated Depression Diabetes A1c-7.6 (08/2019) DVT (deep venous thrombosis) (~03/2020) Proximal left subclavian, basilic and brachial veins, started eliquis this stay, felt present prior to admission Foot drop, left GERD (gastroesophageal reflux disease) H/O acute myocardial infarction H/O deep venous thrombosis developed compartment syndrome History of pulmonary embolism Hyperlipidemia Hypertension Hypothyroidism Ischemic cardiomyopathy Major depressive disorder, recurrent severe without psychotic features Onychodystrophy Osteoarthritis of spine Surgical History H/O colonoscopy (11/14/20) 08/2015 H/O esophagogastroduodenoscopy (11/14/20) 08/2015 H/O removal of testicle left H/O skin graft H/O vasectomy History of appendectomy 1995 History of coronary artery stent placement 5x History of excision of mass 06/08/2019: Subcutaneous mass on back History of inguinal hernia repair, bilateral 1999 History of removal of Port-a-Cath Hx of cholecystectomy Peritoneal dialysis catheter in situ (06/15/21) Port-A-Cath in place Family History Grandfather Cancer skin cancer Parkinson disease Brother Hypertension Father Heart disease Mother Hypertension Stroke Aneurysm Grandmother Aneurysm Other Crohn disease Denies family history of Anesthesia complication Bleeding disorder Social History Smoking and tobacco status: never smoked Second hand smoke exposure: No Smoking risk assessment/counseling performed?: No Alcohol intake: former Year of sobriety/quit date alcohol: 2015 Former alcohol use details: Only holidays Desire information about alcohol rehabilitation?: No Counseling given: No Desire information about substance/drug rehabilitation?: No Counseling given: No Lives independently: Yes Household members: significant other Marital status: Single Current occupational status: disabled Vitals/I&O/Wt Last Vital Signs Temp 97.7 F 08/16/22 09:41 Pulse 72 08/16/22 09:41 Resp 16 08/16/22 09:41 BP 157/82 08/16/22 09:41 Pulse Ox 95 08/16/22 09:41 O2 Del Method 08/16/22 09:41 Weight last 48 hrs Weight 108.862 kg Physical Exam Narrative: Patient was walking in the room He told me that he is in the hospital because of confusion Oriented to himself No active signs of stroke Scar on lower extremities Distended abdomen nontender Awake and alert GCS 15 S1, S2 Currently on room air Unkept appearance Data 08/16/22 10:02 08/16/22 10:02 A&P Assessment and plan (1) Generalized anxiety disorder: (2) Major depressive disorder, recurrent severe without psychotic features: (3) ESRD (end stage renal disease): (4) Uremic encephalopathy: (5) Chronic systolic heart failure: (6) Diabetes: Plan Uremic encephalopathy We will call nephro Patient will need dialysis today He is having symptoms of uremia No other source of confusion Check TSH and B12 Ammonia level is normal Lactic acid is normal Patient is saturating well on room air No resp distress Alcohol level is negative Urine ketones negative High anion gap related to uremia Hypertensive urgency: Optimize antihypertensive regimen Spoke with the ER physician and consulted nephrology team Full code Renal dialysis diet Judicious use of opioids Attestations Medical Necessity Statement*: Anticipating discharge within 48 hours Diagnoses Generalized anxiety disorder F41.1 Major depressive disorder, recurrent severe without psychotic features F33.2 ESRD (end stage renal disease) N18.6 Uremic encephalopathy G93.49; N19 Chronic systolic heart failure I50.22 Diabetes E11.9
[2022-08-16 15:18] LABS: Estmated Average Glucose 148; Hemoglobin A1C 6.8 % (4.0-6.0)
[2022-08-16 15:31] LABS: Thyroid Stimulating Hormone 1.23 uIU/mL (0.27-4.20)
[2022-08-16 17:23] LABS: Glucose Point of Care 61 mg/dL (70-110)
[2022-08-16] MEDS: apixaban 5 mg Tablet 2.5 MG PO (17:40)
[2022-08-16] MEDS: ranolazine (12HR) 500 mg Tablet PO (17:40)
[2022-08-16] MEDS: b-complex-vitamin c Tablet 1 EACH PO (17:40)
[2022-08-16] MEDS: sevelamer 800 mg Tablet PO (17:40)
[2022-08-16] MEDS: docusate sodium 100 mg Capsule PO (17:40)
[2022-08-16 18:11] LABS: Glucose Point of Care 135 mg/dL (70-110)
[2022-08-16 18:58] LABS: Amphetamines Screen Urine Negative (Negative); Barbiturates Screen Urine Negative (Negative); Benzodiazepines Screen Urine Negative (Negative); Cocaine Screen Urine Negative (Negative); Opiate Screen Urine Negative (Negative); PCP Screen Urine Negative (Negative); THC Screen Urine Negative (Negative)
[2022-08-16 18:59] LABS: Urine Appearance Hazy (CLEAR); Urine Color Yellow (Yellow)
[2022-08-16 19:00] LABS: Add Urine Microscopic? YES; Amorphous Sediment Urine 2+ /hpf; Bacteria Urine 1+ /hpf; Bilirubin Urine Neg (Negative); Blood Urine Neg (Negative); Glucose Urine UA Norm (Normal); Hyaline Casts Urine 0-4 /lpf; Ketones Urine 1+ (Negative); Leukocyte Esterase Urine Trace (Negative); Nitrate Urine Negative (Negative); Protein Urine 2+ (Negative); Urobilinogen Urine Neg (Negative); WBC Urine 0-4 /hpf (0-5); pH Urine 5 (5-7)
[2022-08-16 19:01] LABS: Add Urine Culture? No
--- NOTE | 2022-08-16 19:43 | PM.CONSULT ---
Providers/Reason For Consult Consulting Physician/Specialty*: [facility] /Nephrology Reason for Consult*: ESRD Attending Physician: Rosi Etienne MD Primary Care Provider: Kp Montanez DO History of Present Illness History of Present Illness Rei Queen II is a 52 year old male With past medical history of end-stage renal disease on dialysis per TTS schedule was brought into the emergency department due to confusion and altered mental status. Patient mental status is back to baseline currently. Lab data significant for white count of 13,000, creatinine 4.4. Potassium 4.2. Patient is getting dialysis currently and tolerating well. Review of Systems Narrative: NEGATIVE Medications/Allergies Home Medications Medication Instructions Recorded Confirmed Last Taken Type aspirin 81 mg tablet,delayed 81 mg PO QAM 06/01/19 08/16/22 08/16/22 History release insulin lispro 100 unit/mL See Rx Instructions .Route 09/25/20 08/16/22 08/16/22 History subcutaneous solution (Humalog .COMPLEX see pharmacy comments 6 UNITS U-100 Insulin) levothyroxine 88 mcg tablet 88 mcg PO QAM 02/09/21 08/16/22 08/16/22 History promethazine 25 mg tablet 25 mg PO Q6H PRN Nausea And 02/22/21 08/16/22 08/08/22 History Vomiting lidocaine 5 % topical patch 1 patch transdermal DAILY PRN Pain 05/12/21 08/16/22 08/08/22 History docusate sodium 100 mg capsule 100 mg PO BID #30 caps 06/15/21 08/16/22 08/16/22 Rx (Colace) apixaban 2.5 mg tablet (Eliquis) 2.5 mg PO BID 09/14/21 08/16/22 08/16/22 History insulin degludec 200 unit/mL (3 50 unit SUBCUT BEDTIME 12/11/21 08/16/22 08/15/22 History mL) subcutaneous pen (Tresiba FlexTouch U-200 insulin) atorvastatin 40 mg tablet 40 mg PO QAM #90 tabs 12/19/21 08/16/22 08/16/22 Rx ranolazine 500 mg tablet,extended 500 mg PO BID #180 tabs 01/02/22 08/16/22 08/16/22 Rx release,12 hr (Ranexa) gabapentin 100 mg capsule 100 mg PO BID #180 caps 06/05/22 08/16/22 08/16/22 Rx baclofen 5 mg tablet 5 mg PO BID PRN Muscle Pain 06/18/22 08/16/22 08/08/22 History nitroglycerin 0.4 mg sublingual 0.4 mg sublingual Q5M PRN Chest 06/18/22 08/16/22 08/08/22 Rx tablet (Nitrostat) Pain #25 tabs sevelamer carbonate 800 mg tablet 800 mg PO TID 06/18/22 08/16/22 08/16/22 History bupropion HCl 300 mg 24 hr tablet, 300 mg PO QAM #30 tabs 08/10/22 08/16/22 08/16/22 Rx extended release (Wellbutrin XL) 150MG-[facility] C buspirone 5 mg tablet 5 mg PO TID #90 tabs 08/10/22 08/16/22 08/16/22 Rx trazodone 100 mg tablet 400 mg PO BEDTIME PRN insomnia 08/10/22 08/16/22 Unknown Rx #120 tabs vitamin B complex with vit C-folic 1 tab PO QPM 08/10/22 08/16/22 08/15/22 History acid 800 mcg-zinc 12.5 mg tablet (RenaPlex) bumetanide 2 mg tablet 4 mg PO BID 08/16/22 08/16/22 08/16/22 History dulaglutide 1.5 mg/0.5 mL 1.5 mg SUBCUT Q7D 08/16/22 08/16/22 Unknown History subcutaneous pen injector (Trulicity) losartan 50 mg tablet 25 mg PO BEDTIME 08/16/22 08/16/22 08/15/22 History metoprolol tartrate 25 mg tablet See Rx Instructions .Route .COMPLEX 08/16/22 08/16/22 08/15/22 History Allergies Allergy/AdvReac Type Severity Reaction Status Date / Time Iodinated Contrast Media Allergy Severe ALGY-Difficulty Verified 08/10/22 15:52 Breathing iodine Allergy Severe ALGY-Difficulty Verified 08/10/22 15:52 Breathing metoclopramide [From Reglan] Allergy Severe ALGY-Difficulty Verified 08/10/22 15:52 Breathing nalbuphine [From Nubain] Allergy Severe ADR-Diarrhe Verified 08/10/22 15:52 a naproxen [From Naprosyn] Allergy Severe ADR-Vomitin Verified 08/10/22 15:52 g Sulfa (Sulfonamide Allergy Severe ALGY-Difficulty Verified 08/10/22 15:52 Antibiotics) Breathing ketorolac Allergy Intermediate ADR-Nausea Verified 08/10/22 15:52 ondansetron [From Zofran] Allergy Intermediate ADR-Abdominal Verified 08/10/22 15:52 Pain prochlorperazine Allergy Intermediate ADR-Irritab Verified 08/10/22 15:52 [From Compazine] le codeine AdvReac Severe ALGY-Anaphy Verified 08/10/22 15:52 laxis haloperidol [From Haldol] AdvReac Intermediate ADR-Irritab Verified 08/10/22 15:52 le Current Medications Generic Name Dose Route Start Last Admin Trade Name Freq PRN Reason Stop Dose Admin Apixaban 2.5 mg 08/16/22 18:00 08/16/22 17:40 Apixaban 5 Mg Tablet PO 2.5 mg BID RANDY Administration Docusate Sodium 100 mg 08/16/22 18:00 08/16/22 17:40 Docusate Sodium 100 Mg Capsule PO 100 mg BID RANDY Administration Insulin Human Lispro 0 unit 08/16/22 18:00 08/16/22 18:13 Insulin Lispro 100 Unit/1 Ml SUBCUT Not Given TIDWM [facility] Protocol Multivitamins 1 each 08/16/22 18:00 08/16/22 17:40 S-Injhxcj-Hmvitqk C Tablet PO 1 each QPM RANDY Administration Ranolazine 500 mg 08/16/22 18:00 08/16/22 17:40 Ranolazine (12hr) 500 Mg Tablet PO 500 mg BID RANDY Administration Sevelamer Carbonate 800 mg 08/16/22 18:00 08/16/22 17:40 Sevelamer 800 Mg Tablet PO 800 mg TIDWM RANDY Administration PFSH Acute PFSH: Medical History Acute kidney injury superimposed on CKD Acute on chronic congestive heart failure Alcohol use disorder, moderate, in sustained remission Anemia Atherosclerotic heart disease of [place] coronary artery with other forms of angina pectoris hx of CAD with prior stenting of proximal LAD, LCx, RCA Chronic anticoagulation Eliquis Chronic kidney disease -baseline Cr appears to be around 1.5 Chronic systolic heart failure D-dimer, elevated Depression Diabetes A1c-7.6 (08/2019) DVT (deep venous thrombosis) (~03/2020) Proximal left subclavian, basilic and brachial veins, started eliquis this stay, felt present prior to admission Foot drop, left GERD (gastroesophageal reflux disease) H/O acute myocardial infarction H/O deep venous thrombosis developed compartment syndrome History of pulmonary embolism Hyperlipidemia Hypertension Hypothyroidism Ischemic cardiomyopathy Major depressive disorder, recurrent severe without psychotic features Onychodystrophy Osteoarthritis of spine Surgical History H/O colonoscopy (11/14/20) 08/2015 H/O esophagogastroduodenoscopy (11/14/20) 08/2015 H/O removal of testicle left H/O skin graft H/O vasectomy History of appendectomy 1995 History of coronary artery stent placement 5x History of excision of mass 06/08/2019: Subcutaneous mass on back History of inguinal hernia repair, bilateral 1999 History of removal of Port-a-Cath Hx of cholecystectomy Peritoneal dialysis catheter in situ (06/15/21) Port-A-Cath in place Family History Grandfather Cancer skin cancer Parkinson disease Brother Hypertension Father Heart disease Mother Hypertension Stroke Aneurysm Grandmother Aneurysm Other Crohn disease Denies family history of Anesthesia complication Bleeding disorder Social History Smoking and tobacco status: never smoked Second hand smoke exposure: No Smoking risk assessment/counseling performed?: No Alcohol intake: former Year of sobriety/quit date alcohol: 2015 Former alcohol use details: Only holidays Desire information about alcohol rehabilitation?: No Counseling given: No Desire information about substance/drug rehabilitation?: No Counseling given: No Lives independently: Yes Household members: significant other Marital status: Single Current occupational status: disabled Vitals/I&O/Wt Last Vital Signs Temp 98.0 F 08/16/22 17:02 Pulse 73 08/16/22 17:02 Resp 16 08/16/22 17:02 BP 144/80 08/16/22 17:02 Pulse Ox 91 08/16/22 17:02 O2 Del Method 08/16/22 14:49 Weight last 48 hrs Weight 108.862 kg Physical Exam Narrative: Patient is awake alert no acute distress HEENT, S1-S2 regular rate and rhythm per report Clear to auscultation per report No pedal edema Data 08/16/22 10:02 08/16/22 10:02 A&P Assessment and plan (1) ESRD (end stage renal disease): Plan 1. End-stage renal disease: On dialysis per TTS schedule as outpatient, plan for HD today., Patient presented with possible encephalopathy, uremia may be contributing. 2. Hypertension: Restart home medications 3. Coronary artery disease: Status post stents, ischemic cardiomyopathy with ejection fraction 35% 4. History of DVT and PE on chronic anticoagulation Patient evaluated using audiovisual cart. Time spent 45 minutes. Consult Attestations Medical Necessity Statement: Patient requires continued hospital stay for close monitoring and further management Coding Level of Care Code Acute Code for Chg Fwd Diagnoses ESRD (end stage renal disease) N18.6
[2022-08-16 21:42] LABS: Glucose Point of Care 153 mg/dL (70-110)
[2022-08-16] MEDS: insulin glargine 100 units/1 mL 40 UNIT SUBCUT (21:46)
[2022-08-16] MEDS: losartan 50 mg Tablet 25 MG PO (21:46)
[2022-08-16] MEDS: metoprolol tartrate 25 mg Tablet PO (21:47)
[2022-08-16] MEDS: trazodone 100 mg Tablet 400 MG PO (23:42)
--- NOTE | 2022-08-17 02:36 | PC.HD ---
Transient hypotension precluded reaching fluid removal goal. Tx shortened per Dr Gibson's instructions d/t heavy case load.
[2022-08-17 04:00] VITALS: BP 160/81; PULSE 70; RESP 18; TEMP 36.8; O2SAT 93
[2022-08-17 04:31] LABS: Hepatitis A Antibody IgM Non-Reactive (Nonreactive); Hepatitis B Core AB, Total Non-Reactive (Nonreactive); Hepatitis B Surface AB 420.6 (11.5-1000); Hepatitis B Surface Antigen Non-Reactive (Nonreactive); Hepatitis C Virus Antibody Non-Reactive (Nonreactive)
[2022-08-17 04:59] LABS: Blood Urea Nitrogen 40 mg/dL (6-20); Calcium 8.7 mg/dL (8.5-10.5); Carbon Dioxide 24 mmol/L (22-29); Chloride 96 mmol/L (98-107); Glomerular Filtration Rate 14.5 mL/min (90-130); Glucose 104 mg/dL (65-115); Magnesium 2.2 mg/dL (1.7-2.3); Osmolality Calculated 290 mOsm/kg (285-295); Sodium 135 mmol/L (136-145)
[2022-08-17 05:18] LABS: Anion Gap 19.2 (5-19); Potassium 4.2 mmol/L (3.5-5.1)
[2022-08-17] MEDS: atorvastatin 40 mg Tablet PO (06:11)
[2022-08-17] MEDS: aspirin 81 mg EC Tablet PO (06:11)
[2022-08-17] MEDS: buPROPion XL (24 HR) 300 mg Tablet PO (06:11)
[2022-08-17] MEDS: levothyroxine 88 mcg Tablet PO (06:11)
[2022-08-17 06:29] LABS: Glucose Point of Care 111 mg/dL (70-110)
[2022-08-17 07:54] VITALS: BP 133/80; PULSE 70; RESP 16; TEMP 36.7
[2022-08-17] MEDS: apixaban 5 mg Tablet 2.5 MG PO (08:32)
[2022-08-17] MEDS: ranolazine (12HR) 500 mg Tablet PO (08:33)
[2022-08-17] MEDS: docusate sodium 100 mg Capsule PO (08:33)
[2022-08-17] MEDS: sevelamer 800 mg Tablet PO (08:33)
[2022-08-17] MEDS: metoprolol tartrate 25 mg Tablet PO (08:33)
[2022-08-17 09:34] VITALS: PULSE 70; RESP 16; O2SAT 91
--- NOTE | 2022-08-17 09:44 | P.DS_ITS ---
Discharge Providers Date of Admission: 08/16/22 14:49 Date of Discharge: August 17, 2022 Attending Provider at Admission: Rosi Etienne MD Attending Provider at Discharge: Rosi Etienne MD Primary Care Provider: Kp Montanez DO Diagnoses at Discharge Discharge Diagnosis (1) ESRD (end stage renal disease): Status: Acute Reason for Visit Reason for Visit: AMS Hospital Course Hospital Course 48-year-old male with end-stage renal disease, Saturday dialysis dependent presented with chief complaint of altered mental status/confusion, no infectious source was identified, cloudy urine with 1+ bacteria noted however no significant pyuria, ammonia level normal ABG normal, he had high anion gap with uremia, his confusion was likely related to uremic encephalopathy without any other uremic symptoms. After gentle fluid hydration his symptoms improved, nephrology was consulted, patient did well with hemodialysis and today he is back to his baseline, as per the he did not sleep at all he kept watching television all night. At the time of discharge I have discontinued his BuSpar and trazodone because he is already taking SNRI. For possible cystitis I will give him cefpodoxime 5-day course. He will continue his dialysis session as scheduled outpatient. Head CT unremarkable chest x-ray unremarkable Hepatitis panel unremarkable. Uremic encephalopathy: Resolved Physical Exam Narrative: Patient does have some intellectual challenges Full code S1, S2 Distended abdomen nontender No active signs of fluid overload Lower extremity surgical scar No active sign of cellulitis Awake and alert GCS 15 Nonfocal neuro exam Patient is awake and alert no signs of confusion at all Discharge Data Studies Completed and Pending Completed Studies During Hospitalization Category Date Time Status CT head wo con* [id number] Stat Cat Scan 08/16/22 09:41 Completed XR chest 1V portable [id number] Stat Exams 08/16/22 09:41 Completed Radiology Impressions Chest X-Ray 08/16/22 09:41 IMPRESSION: 1. No acute cardiopulmonary process identified. 2. Right subclavian dialysis catheter and left subclavian port both ending in the region of the distal SVC. Head CT 08/16/22 09:41 IMPRESSION: 1. No evidence of intracranial hemorrhage or mass effect. 2. No acute intracranial findings. Laboratory Results WBC 13.0 10^3/uL (4.0-10.0) H 08/16/22 10:02 RBC 3.90 10^6/uL (4.1-5.3) L 08/16/22 10:02 Hgb 12.1 g/dL (11.7-16.6) 08/16/22 10:02 Hct 37.8 % (42.0-52.0) L 08/16/22 10:02 MCV 96.9 fl (80-94) H 08/16/22 10:02 MCH 31.0 pg (28.0-34.0) 08/16/22 10:02 MCHC 32.0 g/dL (30.0-36.0) 08/16/22 10:02 RDW 15.8 % (12.1-15.1) H 08/16/22 10:02 Plt Count 233 10^3/cmm (130-400) 08/16/22 10:02 MPV 8.7 fL (7.4-10.4) 08/16/22 10:02 Neut % (Auto) 81.4 % 08/16/22 10:02 Lymph % (Auto) 10.9 % 08/16/22 10:02 [place] % (Auto) 5.9 % 08/16/22 10:02 Eos % (Auto) 0.9 % 08/16/22 10:02 Baso % (Auto) 0.4 % 08/16/22 10:02 Neut # (Auto) 10.57 10^3/uL (1.8-7.7) H 08/16/22 10:02 Lymph # (Auto) 1.4 10^3/uL (0.8-4.8) 08/16/22 10:02 [place] # (Auto) 0.8 10^3/uL (0.2-0.9) 08/16/22 10:02 Eos # (Auto) 0.1 10^3/uL (0.0-0.8) 08/16/22 10:02 Baso # (Auto) 0.1 10^3/uL (0.0-0.1) 08/16/22 10:02 Nucleated RBC % (auto) 0 % 08/16/22 10:02 Nucleated RBCs # 0.0 /100WBC 08/16/22 10:02 Specimen Type Arterial 08/16/22 09:46 Sample Site Radial, left 08/16/22 09:46 ABG pH 7.42 (7.35-7.45) 08/16/22 09:46 ABG pCO2 42.7 mmHg (35-45) 08/16/22 09:46 ABG pO2 62.9 mmHg (80.0-100.0) L 08/16/22 09:46 ABG HCO3 27.5 mmol/L (22-26) H 08/16/22 09:46 ABG O2 Saturation 91.8 08/16/22 09:46 ABG Base Excess 2.6 mmol/L (-2.0-2.0) H 08/16/22 09:46 Scottie Test Pos 08/16/22 09:46 A-a O2 Gradient 4.5 mmHg (5-10) L 08/16/22 09:46 Hematocrit 37.1 % (42-52) L 08/16/22 09:46 Hgb O2 Saturation 90.7 % (95-100) L 08/16/22 09:46 Carboxyhemoglobin 0.4 %THgb (0.4-20.1) 08/16/22 09:46 Methemoglobin 0.8 % (0.4-1.5) 08/16/22 09:46 Total Hemoglobin 12.1 g/dL (14-18) L 08/16/22 09:46 Sodium 135.0 mmol/L (131-143) 08/16/22 09:46 Potassium 4.0 mmol/L (3.5-5.0) 08/16/22 09:46 Glucose 81.0 mg/dL (70-115) 08/16/22 09:46 Ionized Calcium 1.2 mmol/L (1.1-1.4) 08/16/22 09:46 O2 Delivery Device Room air 08/16/22 09:46 Manager Sales Training ID Cak 08/16/22 09:46 Sodium 135 mmol/L (136-145) L 08/17/22 04:19 Potassium 4.2 mmol/L (3.5-5.1) 08/17/22 04:19 Chloride 96 mmol/L (98-107) L 08/17/22 04:19 Carbon Dioxide 24 mmol/L (22-29) 08/17/22 04:19 Anion Gap 19.2 (5-19) H 08/17/22 04:19 BUN 40 mg/dL (6-20) H 08/17/22 04:19 Creatinine 4.3 mg/dL (0.7-1.2) H 08/17/22 04:19 GFR Calculation 14.5 mL/min (90-130) L 08/17/22 04:19 Glucose 104 mg/dL (65-115) 08/17/22 04:19 POC Glucose 111 mg/dL (70-110) H 08/17/22 06:19 Estimat Average Glucose 148 08/16/22 10:02 Hemoglobin A1c 6.8 % (4.0-6.0) H 08/16/22 10:02 Calculated Osmolality 290 mOsm/kg (285-295) 08/17/22 04:19 Lactic Acid 0.9 mmol/L (0.5-2.2) 08/16/22 10:02 Calcium 8.7 mg/dL (8.5-10.5) 08/17/22 04:19 Magnesium 2.2 mg/dL (1.7-2.3) 08/17/22 04:19 Total Bilirubin 0.4 mg/dL (0.15-1.2) 08/16/22 10:02 AST 21 U/L (0-40) 08/16/22 10:02 ALT 18 U/L (0-41) 08/16/22 10:02 Alkaline Phosphatase 87 U/L (40-130) 08/16/22 10:02 Ammonia 27 umol/L (16-60) 08/16/22 11:28 Total Protein 6.5 g/dL (6.6-8.7) L 08/16/22 10:02 Albumin 4.2 g/dL (3.5-5.2) 08/16/22 10:02 Globulin 2.3 g/dL (1.3-4.6) 08/16/22 10:02 TSH 1.23 uIU/mL (0.27-4.20) 08/16/22 10:02 Urine Color Yellow (Yellow) 08/16/22 18:39 Urine Appearance Hazy (CLEAR) A 08/16/22 18:39 Urine pH 5 (5-7) 08/16/22 18:39 Ur Specific [place] 1.020 (1.005-1.030) 08/16/22 18:39 Urine Protein 2+ (Negative) H 08/16/22 18:39 Urine Glucose (UA) Norm (Normal) 08/16/22 18:39 Urine Ketones 1+ (Negative) H 08/16/22 18:39 Urine Blood Neg (Negative) 08/16/22 18:39 Urine Nitrate Negative (Negative) 08/16/22 18:39 Urine Bilirubin Neg (Negative) 08/16/22 18:39 Urine Urobilinogen Neg mg/dL (Negative) 08/16/22 18:39 Ur Leukocyte Esterase Trace (Negative) H 08/16/22 18:39 Urine RBC None /hpf (0-2) 08/16/22 18:39 Urine WBC 0-4 /hpf (0-5) H 08/16/22 18:39 Ur Squamous Epith Cells 5-10 /hpf (0-5) H 08/16/22 18:39 Amorphous Sediment 2+ /hpf 08/16/22 18:39 Urine Bacteria 1+ /hpf (NONE) H 08/16/22 18:39 Hyaline Casts 0-4 /lpf H 08/16/22 18:39 Salicylates 1.0 mg/dL (3-10) L 08/16/22 11:28 Urine Opiates Screen Negative ng/mL (Negative) 08/16/22 18:39 Acetaminophen < 5.0 ug/mL (10-30) L 08/16/22 11:28 Ur Barbiturates Screen Negative ng/mL (Negative) 08/16/22 18:39 Ur Phencyclidine Scrn Negative ng/mL (Negative) 08/16/22 18:39 Ur Amphetamines Screen Negative ng/mL (Negative) 08/16/22 18:39 U Benzodiazepines Scrn Negative ng/mL (Negative) 08/16/22 18:39 Urine Cocaine Screen Negative ng/mL (Negative) 08/16/22 18:39 U Marijuana (THC) Screen Negative ng/mL (Negative) 08/16/22 18:39 Ethyl Alcohol < 10 mg/dL (0-10) 08/16/22 11:28 Serum Ketones Negative (Negative) 08/16/22 10:02 Hepatitis A IgM Ab Non-reactive (Nonreactive) 08/16/22 10:02 Hep Bs Antigen Non-reactive (Nonreactive) 08/16/22 10:02 Hep Bs Antibody 420.6 (11.5-1000) 08/16/22 10:02 Hep B Core Total Ab Non-reactive (Nonreactive) 08/16/22 10:02 Hepatitis C Antibody Non-reactive (Nonreactive) 08/16/22 10:02 Vitals Last Vital Signs Temp 98.1 F 08/17/22 07:54 Pulse 70 08/17/22 09:34 Resp 16 08/17/22 09:34 BP 133/80 08/17/22 07:54 Pulse Ox 91 08/17/22 09:34 O2 Del Method 08/17/22 09:34 Discharge Plan Discharge Patient Disposition: Home Condition: Stable Prescriptions: New cefpodoxime 200 mg tablet 200 mg PO BID Qty: 10 0RF Rx Instructions: must administer with a meal/food Continued aspirin 81 mg tablet,delayed release (DR/EC) 81 mg PO QAM Eliquis 2.5 mg tablet 2.5 mg PO BID baclofen 5 mg tablet 5 mg PO BID PRN (Reason: Muscle Pain) sevelamer carbonate 800 mg tablet 800 mg PO TID nitroglycerin [Nitrostat] 0.4 mg tablet, sublingual 0.4 mg SUBLINGUAL Q5M PRN (Reason: Chest Pain) Qty: 25 2RF RenaPlex 800 mcg- 12.5 mg tablet 1 tab PO QPM bupropion HCl [Wellbutrin XL] 300 mg tablet extended release 24 hr 300 mg PO QAM Qty: 30 2RF atorvastatin 40 mg tablet 40 mg PO QAM Qty: 90 2RF ranolazine [Ranexa] 500 mg tablet extended release 12 hr 500 mg PO BID Qty: 180 3RF insulin lispro [Humalog U-100 Insulin] 100 unit/mL solution See Rx Instructions .ROUTE .COMPLEX Rx Instructions: SLIDING SCALE TID docusate sodium [Colace] 100 mg capsule 100 mg PO BID Qty: 30 0RF levothyroxine 88 mcg tablet 88 mcg PO QAM Tresiba FlexTouch U-200 200 unit/mL (3 mL) insulin pen 50 unit SUBCUT BEDTIME lidocaine 5 % adhesive patch,medicated 1 patch transdermal DAILY PRN (Reason: Pain) Rx Instructions: ON FOR 12 HOURS OFF FOR 12 HOURS gabapentin 100 mg Capsule 100 mg PO BID Qty: 180 0RF Trulicity 1.5 mg/0.5 mL pen injector 1.5 mg SUBCUT Q7D Rx Instructions: ON losartan 50 mg tablet 25 mg PO BEDTIME metoprolol tartrate 25 mg tablet See Rx Instructions .ROUTE .COMPLEX Rx Instructions: 12.5MG PO BID EXCEPT NO AM DOSES ON , , AND SAT bumetanide 2 mg tablet 4 mg PO BID Discontinued promethazine 25 mg tablet 25 mg PO Q6H PRN (Reason: Nausea And Vomiting) buspirone 5 mg tablet 5 mg PO TID Qty: 90 2RF trazodone 100 mg tablet 400 mg PO BEDTIME PRN (Reason: insomnia) Qty: 120 2RF Discharge Orders: Discharge Order (Routine); Ordered 08/17/22 Ordered By: Rosi Etienne Referrals: Kp Montanez DO [Primary Care Provider] - Patient Instructions: Opioid Safety Discharge Attestations Time Spent in Discharge Care*: greater than 30 min Status at Discharge: Cognitive status at discharge: cognitively intact , Behavioral status at discharge: cooperative and independent in ADL's , Quality Metrics Clinical Quality Measures [ No reported AMI, CVA or VTE this stay] Coding Level of Care Code Acute Code for Chg Fwd Diagnoses ESRD (end stage renal disease) N18.6
--- NOTE | 2022-08-17 09:59 | PC.CHAP ---
Pastoral Care Encounter/Spiritual Assessment Type of Contact [] Declined automatic buffing wheel former visit [] Patient/Family/Request visit [] Outpatient visit [] Follow-up visit [] Physician referral [] Code/Alert [x] Routine visit [] Staff referral [] Actively dying [] Patient sleeping [x] Family support [] [] Out of room [] Palliative care [] [] Receiving care in room [] Pre-surgical visit [] Trauma [] Long length of stay [] ICU visit [] Other: Relational/Emotional Strength [x] Patient feels connected with others/family/visitors/staff [] Distress [] Loneliness/isolation [] Abandonment Spirituality of Patient [x] Person of Shannon [] Attends Confucianism of their Shannon [x] Believes in Prayer [] Reads Bible or Rastafarian materials [] There are Spiritual issues to be addressed Fiscal Officer Interventions [x] Prayer [] Active listening [] Non-anxious presence [] Spiritual/emotional support [] Crisis/trauma care [] Spiritual counseling [] Bereavement support [] Provided bereavement packet [] Provided Bible/devotional materials [] Provided toy/stuffed animal, coloring book to patient or family member [] Provided Communion [] Anointing/[place] [] Salvation [] Completed spiritual assessment [] Other: Impact on Illness or Injury [] Angry [] Fearful [] Anxious [] Often cries [] Exhaustion [] Unable to work [] Unable to attend roman catholic [] Unable to walk/stand [] Unable to read [] Unable to drive [] Unable to eat/drink [] Unable to sleep [] Unable to be with family [] Patient intubated [] Other: Summary Time spent with patient 10 min
[2022-08-17 11:22] VITALS: PULSE 70; RESP 16; O2SAT 91
== END 2022-08-17 11:15 | disposition home or self-care (01) ==
LOC: ER 12:30 → MEDSURG 13:53
PROVIDERS: Hospitalist; Admitting Provider Internal Medicine; Emergency Provider Family Medicine; PCP Internal Medicine; Visit Provider Internal Medicine
DX: E11.22 Type 2 diabetes mellitus with diabetic chronic kidney disease (principal); I13.2 Hypertensive heart and chronic kidney disease with heart failure and with stage 5 chronic kidney disease, or end stage renal disease; I50.22 Chronic systolic (congestive) heart failure; N18.6 End stage renal disease; Z99.2 Dependence on renal dialysis; Z79.82 Long term (current) use of aspirin; Z79.4 Long term (current) use of insulin; Z79.01 Long term (current) use of anticoagulants; Z86.711 Personal history of pulmonary embolism; E03.9 Hypothyroidism, unspecified; E78.5 Hyperlipidemia, unspecified; G93.49 Other encephalopathy
CPT/HCPCS: 12345; 36415; 36416; 36600; 70450; 71045; 80048; 80051; 80053; 80306; 80307; 81001; 82009; 82140; 82330; 82805; 82962; 83036; 83605; 83735; 84443; 85025; 86705; 86706; 86709; 86803; 87340; 90935; 93005; 96361; 96372; 96374; 99285; G0378; J1815; Q3014

== ENCOUNTER → 2022-09-05 08:44 | Day surgery (SDC) | payer MEDICARE, MEDICAID, SELFPAY ==
[2022-09-05 09:00] VITALS: BP 158/67; PULSE 78; RESP 18; TEMP 36.3; O2SAT 97
== END ==
LOC: GILAB 08:46
PROVIDERS: PCP Internal Medicine; Visit Provider Internal Medicine
DX: Z45.2 Encounter for adjustment and management of vascular access device (principal); Z95.828 Presence of other vascular implants and grafts
CPT/HCPCS: 96523

== ENCOUNTER → 2022-09-10 10:21 | Outpatient (BNVA) | payer MEDICARE, MEDICAID, SELFPAY | PROVIDERS: PCP Internal Medicine; Visit Provider Podiatrist Foot & Ankle Surgery | DX: E11.42 Type 2 diabetes mellitus with diabetic polyneuropathy (principal); L60.3 Nail dystrophy; Z79.4 Long term (current) use of insulin | CPT/HCPCS: 11721 ==

== ENCOUNTER → 2022-10-03 08:57 | Day surgery (SDC) | payer MEDICARE, MEDICAID, SELFPAY ==
[2022-10-03 09:01] VITALS: BP 171/79; PULSE 73; RESP 18; TEMP 36.4; O2SAT 94
--- NOTE | 2022-10-03 09:13 | PC.NURSE ---
Pt to GI infusions for port flush. Left subclavian implanted port accessed without difficulty. Good blood return noted. Pt tolerated well.
== END ==
LOC: GILAB 08:59
PROVIDERS: PCP Internal Medicine; Visit Provider Internal Medicine
DX: Z45.2 Encounter for adjustment and management of vascular access device (principal)
CPT/HCPCS: 96523

== ENCOUNTER → 2022-10-19 09:46 | Outpatient (BNVA) | payer MEDICARE, MEDICAID, SELFPAY | PROVIDERS: PCP Internal Medicine; Visit Provider Internal Medicine | DX: E11.42 Type 2 diabetes mellitus with diabetic polyneuropathy (principal); E11.22 Type 2 diabetes mellitus with diabetic chronic kidney disease; E03.9 Hypothyroidism, unspecified; E78.5 Hyperlipidemia, unspecified; I10 Essential (primary) hypertension; R60.1 Generalized edema; N18.6 End stage renal disease; Z79.890 Hormone replacement therapy; Z79.4 Long term (current) use of insulin | CPT/HCPCS: 99204 ==

== ENCOUNTER → 2022-11-01 08:16 | Day surgery (SDC) | payer MEDICARE, MEDICAID, SELFPAY ==
[2022-11-01 08:20] VITALS: BP 128/79; PULSE 93; RESP 18; TEMP 36.6; O2SAT 92
== END ==
LOC: GILAB 08:16
PROVIDERS: PCP Internal Medicine; Visit Provider Internal Medicine
DX: Z45.2 Encounter for adjustment and management of vascular access device (principal)
CPT/HCPCS: 96523

== ENCOUNTER → 2022-11-12 12:54 | Outpatient (BNVA) | payer MEDICARE, MEDICAID, SELFPAY | PROVIDERS: PCP Internal Medicine; Visit Provider Podiatrist Foot & Ankle Surgery | DX: E11.42 Type 2 diabetes mellitus with diabetic polyneuropathy (principal); L60.8 Other nail disorders; L60.3 Nail dystrophy; S96.112A Strain of muscle and tendon of long extensor muscle of toe at ankle and foot level, left foot, initial encounter; X58.XXXA Exposure to other specified factors, initial encounter; Z79.4 Long term (current) use of insulin | CPT/HCPCS: 11721; 99213 ==

== ENCOUNTER 2022-11-17 15:42 | Emergency (ER) | payer MEDICARE, MEDICAID, SELFPAY ==
[2022-11-17 15:45] VITALS: BP 145/60; PULSE 88; RESP 16; TEMP 36.9; O2SAT 94; BMI 41.9
--- NOTE | 2022-11-17 16:03 | CTR_ITS ---
PROCEDURE INFORMATION: Exam: CT Head Without Contrast Exam date and time: 11/17/2022 4:07 PM Age: 52 years old Clinical indication: Speech disturbance; Slurred speech TECHNIQUE: Imaging protocol: Computed tomography of the head without contrast. Radiation optimization: All CT scans at this facility use at least one of these dose optimization techniques: automated exposure control; mA and/or kV adjustment per patient size (includes targeted exams where dose is matched to clinical indication); or iterative reconstruction. REPORTING DATA: Count of CT and Cardiac NM exams in prior 12 months: This patient has received 6 known CTs and 0 known cardiac nuclear medicine studies in the 12 months prior to the current study. COMPARISON: CT head wo con* [id number] 08/16/2022 10:12 AM RADIATION DOSE METRICS: Total DLP (mGy-cm): 1381.5 FINDINGS: Brain: Normal. No hemorrhage. Unremarkable white matter. No mass effect. Cerebral ventricles: No ventriculomegaly. Paranasal sinuses: Visualized sinuses are unremarkable. No fluid levels. Mastoid air cells: Visualized mastoid air cells are well aerated. Bones/joints: Unremarkable. No acute fracture. Soft tissues: Unremarkable. CT/CT head wo con* [id number] IMPRESSION: No acute intracranial abnormality.
[2022-11-17 16:25] VITALS: BP 128/52; PULSE 85; RESP 16; O2SAT 94
--- NOTE | 2022-11-17 16:35 | ED_ITS ---
HPI - Neuro Symptoms/Deficit General: Chief Complaint: Neuro Symptoms/Deficit Stated Complaint: WEAKNESS Time Seen by Provider: 11/17/22 15:46 Source: patient Mode of arrival: ambulatory History of Present Illness: 52-year-old male presents emergency room from dialysis. They reported he was slurring his words earlier when he arrives here he is awake alert at his baseline. His exam was normal see below his NIH is 0. There was a concern he may have had a stroke. Has had problems with confusion in the past. He denies any fever sweats chills nausea vomiting no abdominal pain no chest pain. Later his came states he was seemed a little out of sorts this morning he was upset with her had words with her made several derogatory comments which in the past has been associated with altered mental status. That has all resolved at this point. Relieving factors: none Exacerbating factors: none Associated symptoms: Deny chest pain, cough, diaphoresis, fevers/chills, headache(s), anorexia, malaise, nausea, seizures, short of breath, syncope, tingling, vertigo, vomiting or weakness Review of Systems Const: Denies: fever(s), chills, fatigue, malaise or diaphoresis ENMT: Denies: throat pain, ear or mastoid pain, nasal discharge or nasal congestion Card: Denies: chest pain or syncope Resp: Denies: dyspnea, productive cough or non-productive cough GI: Denies: abdominal pain, nausea or vomiting : Denies: flank pain, dysuria, urinary frequency or urinary urgency Skin/Breast: Denies: rash or pruritus Neuro: Denies: headache(s) or vertigo [facility] ED PFSH: Medical History Acute kidney injury superimposed on CKD Acute on chronic congestive heart failure Alcohol use disorder, moderate, in sustained remission Anemia Atherosclerotic heart disease of [place] coronary artery with other forms of angina pectoris hx of CAD with prior stenting of proximal LAD, LCx, RCA Chronic anticoagulation Eliquis Chronic kidney disease -baseline Cr appears to be around 1.5 Chronic systolic heart failure D-dimer, elevated Depression Diabetes A1c-7.6 (08/2019) Diabetes DVT (deep venous thrombosis) (~03/2020) Proximal left subclavian, basilic and brachial veins, started eliquis this stay, felt present prior to admission ESRD (end stage renal disease) ESRD (end stage renal disease) Foot drop, left Generalized anxiety disorder GERD (gastroesophageal reflux disease) H/O acute myocardial infarction H/O deep venous thrombosis developed compartment syndrome History of pulmonary embolism Hyperlipidemia Hypertension Hypothyroidism Ischemic cardiomyopathy Major depressive disorder, recurrent severe without psychotic features Onychodystrophy Osteoarthritis of spine Uremic encephalopathy Surgical History H/O colonoscopy (11/14/20) 08/2015 H/O esophagogastroduodenoscopy (11/14/20) 08/2015 H/O removal of testicle left H/O skin graft H/O vasectomy History of appendectomy 1995 History of coronary artery stent placement 5x History of excision of mass 06/08/2019: Subcutaneous mass on back History of inguinal hernia repair, bilateral 1999 History of removal of Port-a-Cath Hx of cholecystectomy Peritoneal dialysis catheter in situ (06/15/21) Port-A-Cath in place Family History Grandfather Cancer skin cancer Parkinson disease Brother Hypertension Father Heart disease Mother Hypertension Stroke Aneurysm Grandmother Aneurysm Other Crohn disease Denies family history of Anesthesia complication Bleeding disorder Social History Smoking and tobacco status: never smoked Second hand smoke exposure: No Smoking risk assessment/counseling performed?: No Alcohol intake: former Year of sobriety/quit date alcohol: 2015 Former alcohol use details: Only holidays Desire information about alcohol rehabilitation?: No Counseling given: No Substance/Drug Use: never Desire information about substance/drug rehabilitation?: No Counseling given: No Lives independently: Yes Household members: significant other Marital status: Single Current occupational status: disabled NIH stroke score NIHSS: Level Of Consciousness - 1a: 0 Level Of Consciousness Questions - 1b: Both Correct Level Of Consciousness Commands - 1c: Both Correct Best Gaze - 2: Normal Visual Scanlon - 3: No Visual Loss Facial Palsy - 4: Normal Motor Arm Right - 5: No Drift Motor Arm Left - 5: No Drift Motor Leg Right - 6: No Drift Motor Leg Left - 6: No Drift Limb Ataxia - 7: Absent Sensory - 8: Normal Best Language - 9: No Aphasia Dysarthia - 10: Normal Extinction And Inattention - 11: 0 Score: Total Score: 0 Physical Exam Const: GENERAL APPEARANCE: cooperative and comfortable ORIENTATION/CONSCIOUSNESS: Yes awake, Yes oriented to person, Yes oriented to place and Yes oriented to time HENMT: COMMON NORMALS: normocephalic, atraumatic and hearing grossly normal bilaterally HEAD & SCALP: normocephalic and atraumatic Resp: COMMON NORMALS: normal respiratory effort, No retractions, No use of accessory muscles and clear to auscultation bilaterally AUSCULTATION: clear to auscultation bilaterally Cardio: COMMON NORMALS: regular rate, regular rhythm and No murmurs present (Cardio) RATE: regular rate RHYTHM: regular rhythm GI: COMMON NORMALS: Soft to palpation and No hepatosplenomegaly present AUSCULTATION: Yes normoactive bowel sounds PALPATION: Yes Soft to palpation, No Tenderness to palpation present (GI), No Guarding due to palpation present (GI) and Yes No hepatosplenomegaly present Extremity: COMMON NORMALS: normal to inspection, capillary refill normal, no clubbing, cyanosis or edema, no calf tenderness and no pedal edema Neuro: SENSORIUM/ORIENTATION: Yes oriented to person, Yes oriented to place and Yes oriented to time Skin: COMMON NORMALS: no rashes or lesions noted GENERAL SKIN EXAM: no rashes or lesions noted Course Vital Signs: Vital signs: Vital Signs Temperature 98.4 F 11/17/22 15:45 Pulse Rate 85 11/17/22 17:07 Respiratory Rate 16 11/17/22 17:07 Blood Pressure 128/52 11/17/22 17:07 Pulse Oximetry 94 11/17/22 17:07 Oxygen Delivery Me thod Room Air 11/17/22 16:25 MDM - Neuro Symptoms/Deficit Medical Decision Making Exam continues to be normal CT negative. No significant exam findings he is at his baseline we will discharge him home follow-up as needed continue his routine scheduled dialysis. Medical Records I reviewed the patient's medical records. Lab Data I reviewed the patient's lab results. Radiology Impressions Head CT 11/17/22 16:03 IMPRESSION: No acute intracranial abnormality. Discharge Plan Discharge Patient Disposition: Home Clinical Impression: CRF (chronic renal failure), Hypertension Condition: Stable Prescriptions: No Action aspirin 81 mg tablet,delayed release (DR/EC) 81 mg PO QAM Eliquis 2.5 mg tablet 2.5 mg PO BID baclofen 5 mg tablet 5 mg PO BID PRN (Reason: Muscle Pain) sevelamer carbonate 800 mg tablet 800 mg PO TID nitroglycerin [Nitrostat] 0.4 mg tablet, sublingual 0.4 mg SUBLINGUAL Q5M PRN (Reason: Chest Pain) Qty: 25 2RF (DME) Dexcom G7 Qa Reviewer Misc See Rx Instructions .Route Qty: 1 0RF Rx Instructions: As directed (DME) Dexcom G7 Sensor Device See Rx Instructions .ROUTE .MEDSUPPLY Qty: 6 0RF Rx Instructions: Change every 10days RenaPlex 800 mcg- 12.5 mg tablet 1 tab PO QPM bupropion HCl [Wellbutrin XL] 300 mg tablet extended release 24 hr 300 mg PO QAM Qty: 30 2RF ranolazine [Ranexa] 500 mg tablet extended release 12 hr 500 mg PO BID Qty: 180 3RF atorvastatin 40 mg tablet 40 mg PO QAM Qty: 90 2RF insulin lispro [Humalog U-100 Insulin] 100 unit/mL solution See Rx Instructions .ROUTE .COMPLEX Rx Instructions: SLIDING SCALE TID docusate sodium [Colace] 100 mg capsule 100 mg PO BID Qty: 30 0RF levothyroxine 88 mcg tablet 88 mcg PO QAM Tresiba FlexTouch U-200 200 unit/mL (3 mL) insulin pen 50 unit SUBCUT BEDTIME lidocaine 5 % adhesive patch,medicated 1 patch transdermal DAILY PRN (Reason: Pain) Rx Instructions: ON FOR 12 HOURS OFF FOR 12 HOURS gabapentin 100 mg Capsule 100 mg PO BID Qty: 180 0RF Trulicity 1.5 mg/0.5 mL pen injector 1.5 mg SUBCUT Q7D Rx Instructions: ON losartan 50 mg tablet 25 mg PO BEDTIME metoprolol tartrate 25 mg tablet See Rx Instructions .ROUTE .COMPLEX Rx Instructions: 12.5MG PO BID EXCEPT NO AM DOSES ON , , AND SAT bumetanide 2 mg tablet 4 mg PO BID cefpodoxime 200 mg tablet 200 mg PO BID Qty: 10 0RF Rx Instructions: must administer with a meal/food Discharge Orders: Discharge ED (Routine); Ordered 11/17/22 Ordered By: Timo Mckoy Referrals: Kp Montanez DO [Primary Care Provider] - Discharge Diet: Usual diet Discharge Activity: Increase activity as tolerated Patient Instructions: Opioid Safety, Pain Management Coding Level of Care Code ED Mathematics Education Professor for Aaron Irene
[2022-11-17 17:07] VITALS: BP 128/52; PULSE 85; RESP 16; O2SAT 94
== END 2022-11-17 17:11 | disposition home or self-care (01) ==
PROVIDERS: Emergency Provider Family Medicine; PCP Internal Medicine
DX: I12.0 Hypertensive chronic kidney disease with stage 5 chronic kidney disease or end stage renal disease (principal); N18.6 End stage renal disease
CPT/HCPCS: 70450; 99284

== ENCOUNTER → 2022-11-29 08:53 | Day surgery (SDC) | payer MEDICARE, MEDICAID, SELFPAY ==
[2022-11-29 09:00] VITALS: BP 134/49; PULSE 89; RESP 18; TEMP 36.2; O2SAT 94
== END ==
LOC: GILAB 08:55
PROVIDERS: PCP Internal Medicine; Visit Provider Internal Medicine
DX: Z95.828 Presence of other vascular implants and grafts (principal)
CPT/HCPCS: 96523

== ENCOUNTER 2022-11-30 14:35 | Outpatient (CLI) | payer MEDICARE, MEDICAID, SELFPAY ==
--- NOTE | 2022-11-30 15:00 | US_ITS ---
WS: [id number] Subcutaneous ultrasound of the proximal anterior left leg, 11/30/2022 Clinical Data: Left extensor hallucis longus tendon rupture Comparison: None. Findings: Only normal subcutaneous tissue could be seen. There were no abnormal cysts or fluid collections. No muscle or tendon abnormalities were seen. US/US soft tissue/extremity [id number] Impression: Negative subcutaneous ultrasound of the proximal anterior left leg.
== END 2022-11-30 14:36 | disposition home or self-care (01) ==
LOC: RAD 14:36
PROVIDERS: PCP Internal Medicine; Visit Provider Podiatrist Foot & Ankle Surgery
DX: S96.812A Strain of other specified muscles and tendons at ankle and foot level, left foot, initial encounter (principal); X58.XXXA Exposure to other specified factors, initial encounter
CPT/HCPCS: 76882

== ENCOUNTER → 2022-12-17 13:22 | Outpatient (BNVA) | payer MEDICARE, MEDICAID, SELFPAY | PROVIDERS: PCP Internal Medicine; Visit Provider Internal Medicine Cardiovascular Disease | DX: I42.9 Cardiomyopathy, unspecified (principal); I25.10 Atherosclerotic heart disease of native coronary artery without angina pectoris; E66.9 Obesity, unspecified; Z68.41 Body mass index [BMI] 40.0-44.9, adult; I82.622 Acute embolism and thrombosis of deep veins of left upper extremity; I13.2 Hypertensive heart and chronic kidney disease with heart failure and with stage 5 chronic kidney disease, or end stage renal disease; E11.22 Type 2 diabetes mellitus with diabetic chronic kidney disease; N18.6 End stage renal disease; I50.22 Chronic systolic (congestive) heart failure; Z79.4 Long term (current) use of insulin | CPT/HCPCS: 99214 ==

== ENCOUNTER → 2022-12-26 12:52 | Outpatient (BNVA) | payer MEDICARE, MEDICAID, SELFPAY | PROVIDERS: PCP Internal Medicine; Visit Provider Podiatrist Foot & Ankle Surgery | DX: E11.42 Type 2 diabetes mellitus with diabetic polyneuropathy (principal); Z79.4 Long term (current) use of insulin | CPT/HCPCS: 99213 ==

== ENCOUNTER → 2023-01-16 08:37 | Day surgery (SDC) | payer MEDICARE, MEDICAID, SELFPAY ==
[2023-01-16 08:45] VITALS: BP 136/69; PULSE 86; RESP 18; TEMP 36.1; O2SAT 94
[2023-01-16 09:48] LABS: Estmated Average Glucose 163; Hemoglobin A1C 7.3 % (4.0-6.0)
[2023-01-16 09:54] LABS: Creatinine Urine, Random 52 mg/dL (39-259)
[2023-01-16 10:04] LABS: Alanine Aminotransferase 15 U/L (0-41); Albumin Level 3.6 g/dL (3.5-5.2); Alkaline Phosphatase 80 U/L (40-130); Anion Gap 13.7 (5-19); Aspartate Amino Transferase 17 U/L (0-40); Blood Urea Nitrogen 22 mg/dL (6-20); Calcium 8.9 mg/dL (8.5-10.5); Carbon Dioxide 32 mmol/L (22-29); Chloride 96 mmol/L (98-107); Chol HDL Ratio 4.94 mg/dL (1.0-5.00); Cholesterol 173 mg/dL (0-200); Globulin 2.7 g/dL (1.3-4.6); Glomerular Filtration Rate 29.8 mL/min (90-130); Glucose 131 mg/dL (65-115); HDL Cholesterol 35 mg/dL (60-100); LDL Cholesterol Calculated 98 mg/dL (50-129); Osmolality Calculated 291 mOsm/kg (285-295); Potassium 3.7 mmol/L (3.5-5.1); Sodium 138 mmol/L (136-145); Thyroid Stimulating Hormone 5.57 uIU/mL (0.27-4.20); Total Bilirubin 0.4 mg/dL (0.15-1.2); Total Protein 6.3 g/dL (6.6-8.7); Triglycerides 199 mg/dL (0-150)
[2023-01-16 10:06] LABS: Microalbum Creatinine Ratio Ur 1423 mg/dL (0-20); Microalbumin Random Urine 74 ug/dL (0-20)
[2023-01-16 10:28] LABS: Free T4 Free Thyroxine 1.25 ng/dL (0.82-1.77)
== END ==
PROVIDERS: Internal Medicine; PCP Internal Medicine; Visit Provider Internal Medicine
DX: I12.9 Hypertensive chronic kidney disease with stage 1 through stage 4 chronic kidney disease, or unspecified chronic kidney disease (principal); N18.4 Chronic kidney disease, stage 4 (severe); Z45.2 Encounter for adjustment and management of vascular access device; E11.42 Type 2 diabetes mellitus with diabetic polyneuropathy; E03.9 Hypothyroidism, unspecified; E78.5 Hyperlipidemia, unspecified; R60.1 Generalized edema
CPT/HCPCS: 36591; 80053; 80061; 82044; 83036; 84439; 84443

== ENCOUNTER → 2023-01-24 09:40 | Outpatient (BNVA) | payer MEDICARE, MEDICAID, SELFPAY | PROVIDERS: PCP Internal Medicine; Visit Provider Internal Medicine | DX: E11.42 Type 2 diabetes mellitus with diabetic polyneuropathy (principal); E78.5 Hyperlipidemia, unspecified; E03.9 Hypothyroidism, unspecified; I10 Essential (primary) hypertension; R60.1 Generalized edema; Z79.4 Long term (current) use of insulin; Z79.890 Hormone replacement therapy | CPT/HCPCS: 99214 ==

== ENCOUNTER → 2023-01-29 07:51 | Outpatient (BNVA) | payer MEDICARE, MEDICAID, SELFPAY | PROVIDERS: PCP Internal Medicine; Visit Provider Surgery | DX: Z95.828 Presence of other vascular implants and grafts (principal) | CPT/HCPCS: 99214 ==

== ENCOUNTER → 2023-02-04 10:42 | Outpatient (BNVA) | payer MEDICARE, MEDICAID, SELFPAY | PROVIDERS: PCP Internal Medicine; Visit Provider Surgery | DX: Z95.828 Presence of other vascular implants and grafts (principal) | CPT/HCPCS: 36590; 99214 ==

== ENCOUNTER 2023-02-09 07:43 | Observation (INO) | payer MEDICARE, MEDICAID, SELFPAY ==
[2023-02-09] VITALS (10 sets, daily range): BP systolic 144–189; BP diastolic 62–91; PULSE 76–99; RESP 16–18; TEMP 36.3–36.6; O2SAT 92–98
--- NOTE | 2023-02-09 08:01 | ECG_ITS ---
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 Measurements Intervals [place] Rate: 76 P: 5 [place]: 170 QRS: -10 QRSD: 118 T: 44 QT: 418 QTc: 472 Interpretive Statements SINUS RHYTHM POSSIBLE ANTERIOR MYOCARDIAL INFARCTION , OF INDETERMINATE AGE [30 ms Q WAVE IN V3/V4, OR R < 0.2 mV IN V4] INTERPRETATION BASED ON A DEFAULT AGE OF 40 YEARS Compared to ECG 08/16/2022 09:49:19 First degree AV block no longer present T-wave abnormality no longer present Possible ischemia no longer present Myocardial infarct finding still present Electronically Signed On 02-09-2023 20:33:33 CDT by Garrison Mckinney M.D. [id number] f
--- NOTE | 2023-02-09 09:04 | XRR_ITS ---
PROCEDURE INFORMATION: Exam: XR Chest Exam date and time: 02/09/2023 9:14 AM Age: 52 years old Clinical indication: Cough and dyspnea; Additional info: Dyspnea/cough TECHNIQUE: Imaging protocol: Radiologic exam of the chest. Views: 1 view. COMPARISON: CR XR chest 1V portable [id number] 08/16/2022 10:39 AM FINDINGS: Tubes, catheters and devices: There is a left chest port with the line tip appropriately positioned in the lower SVC near the cavoatrial junction. Lungs: There is no consolidation. Pleural spaces: There is no pleural effusion or pneumothorax. Heart/Mediastinum: The cardiac silhouette is within normal limits of size given AP technique. Bones/joints: Sternal wires are present. There is no displacement to suggest sternal dehiscence. Bones are unremarkable otherwise. XR/XR chest 1V portable [id number] IMPRESSION: No acute findings.
[2023-02-09 09:07] LABS: Basophils % 0.4 %; Eosinophils # 0.1 10^3/uL (0.0-0.8); Eosinophils % 1.3 %; Hematocrit 35.1 % (37-53); Lymphocytes # 1.3 10^3/uL (0.8-4.8); Mean Corpuscular HGB Conc 34.5 g/dL (30-55); Mean Corpuscular Hemoglobin 33.6 pg (27-33); Mean Corpuscular Volume 97.5 fl (82-101); Mean Platelet Volume 9.2 fL (7.4-10.4); Monocytes # 0.7 10^3/uL (0.2-0.9); Monocytes % 7.5 %; Neutrophils # 7.16 10^3/uL (1.8-7.7); Neutrophils % 76.3 %; Nucleated Red Blood Cells % 0 %; Platelet Count 258 10^3/cmm (157-399); Red Cell Distribution Width 14.4 % (12.1-15.1); White Blood Count 9.38 10^3/uL (3.29-11.43)
[2023-02-09 09:16] LABS: Alanine Aminotransferase 16 U/L (0-41); Albumin Level 3.9 g/dL (3.5-5.2); Alkaline Phosphatase 98 U/L (40-130); Anion Gap 13.4 (5-19); Aspartate Amino Transferase 18 U/L (0-40); Blood Urea Nitrogen 34 mg/dL (6-20); Calcium 8.7 mg/dL (8.5-10.5); Carbon Dioxide 31 mmol/L (22-29); Chloride 88 mmol/L (98-107); Globulin 2.9 g/dL (1.3-4.6); Glomerular Filtration Rate 13.1 mL/min (90-130); Glucose 130 mg/dL (65-115); Osmolality Calculated 277 mOsm/kg (285-295); Potassium 3.4 mmol/L (3.5-5.1); Sodium 129 mmol/L (136-145); Total Bilirubin 0.7 mg/dL (0.15-1.2); Total Protein 6.8 g/dL (6.6-8.7)
--- NOTE | 2023-02-09 09:23 | ED_ITS ---
HPI - Altered Mental Status General: Chief Complaint: Altered Mental Status Stated Complaint: AMS Time Seen by Provider: 02/09/23 07:51 Source: patient Mode of arrival: EMS History of Present Illness: 51-year-old male presents emergency room with altered mental status. Patient is end-stage renal disease and is dialysis on Tuesdays and Saturdays. Recently had a tunneled dialysis catheter removed and a fistula had matured enough in the left arm and it began to be used for his dialysis. His states he was not feeling good yesterday and took Benadryl and several different forms as well as promethazine and Compazine. He was disoriented altered last night it was worse this morning and went to dialysis he was dazed slow to answer questions they did not complete his dialysis he was brought here because of rep ort of altered mental status. He is awake has difficulty answering questions he is not suicidal or homicidal. He does appear overly sedate. Additionally he is on baclofen bupropion buspirone and duloxetine gabapentin hydrocodone and trazodone. Later in the visit he complained of some chest discomfort. He has had multiple extensive cardiac work-ups in the past. MD complaint: altered mental status Onset (ago): hour(s) Timing confirmed by: spouse Severity: moderate Review of Systems ENMT: Denies: throat pain, ear or mastoid pain, nasal discharge or nasal congestion Card: Denies: chest pain, edema, dyspnea on exertion or orthopnea Resp: Denies: dyspnea, productive cough or non-productive cough GI: Reports: nausea; Denies: abdominal pain or vomiting : Denies: flank pain, dysuria, urinary frequency or urinary urgency Skin/Breast: Denies: rash or pruritus PFSH ED PFSH: Medical History Acute kidney injury superimposed on CKD Acute on chronic congestive heart failure Alcohol use disorder, moderate, in sustained remission Anemia Atherosclerotic heart disease of [place] coronary artery with other forms of angina pectoris hx of CAD with prior stenting of proximal LAD, LCx, RCA Chronic anticoagulation Eliquis Chronic kidney disease -baseline Cr appears to be around 1.5 Chronic systolic heart failure D-dimer, elevated Depression Diabetes A1c-7.6 (08/2019) Diabetes DVT (deep venous thrombosis) (~03/2020) Proximal left subclavian, basilic and brachial veins, started eliquis this stay, felt present prior to admission ESRD (end stage renal disease) ESRD (end stage renal disease) Foot drop, left Generalized anxiety disorder GERD (gastroesophageal reflux disease) H/O acute myocardial infarction H/O deep venous thrombosis developed compartment syndrome History of pulmonary embolism Hyperlipidemia Hypertension Hypothyroidism Ischemic cardiomyopathy Major depressive disorder, recurrent severe without psychotic features Onychodystrophy Osteoarthritis of spine Uremic encephalopathy Surgical History H/O colonoscopy (11/14/20) 08/2015 H/O esophagogastroduodenoscopy (11/14/20) 08/2015 H/O removal of testicle left H/O skin graft H/O vasectomy History of appendectomy 1995 History of coronary artery stent placement 5x History of excision of mass 06/08/2019: Subcutaneous mass on back History of inguinal hernia repair, bilateral 1999 History of removal of Port-a-Cath Hx of cholecystectomy Peritoneal dialysis catheter in situ (06/15/21) Port-A-Cath in place Family History Grandfather Cancer skin cancer Parkinson disease Brother Hypertension Father Heart disease Mother Hypertension Stroke Aneurysm Grandmother Aneurysm Other Crohn disease Denies family history of Anesthesia complication Bleeding disorder Social History Smoking and tobacco status: never smoked Second hand smoke exposure: No Smoking risk assessment/counseling performed?: No Alcohol intake: former Year of sobriety/quit date alcohol: 2015 Former alcohol use details: Only holidays Desire information about alcohol rehabilitation?: No Counseling given: No Substance/Drug Use: never Desire information about substance/drug rehabilitation?: No Counseling given: No Lives independently: Yes Household members: significant other Marital status: Single Current occupational status: disabled Physical Exam Const: GENERAL APPEARANCE: cooperative and comfortable ORIENTA TION/CONSCIOUSNESS: Yes awake HENMT: COMMON NORMALS: normocephalic, atraumatic, hearing grossly normal bilaterally, external ears normal, EAC's normal, TM's normal bilaterally, Normal nasal mucous membranes and turbinates present, moist oral mucous membranes and oropharynx normal HEAD & SCALP: normocephalic and atraumatic NOSE: Normal nasal mucous membranes and turbinates present EXTERNAL EAR: Yes external ears normal EXTERNAL AUDITORY CANAL: EAC's normal TYMPANIC MEMBRANE: TM's normal bilaterally Eye: COMMON NORMALS: Equal, round and reactive pupils present, EOMs intact bilaterally, conjunctivae normal and no scleral icterus CONJUNCTIVA: Yes conjunctivae normal PUPIL: Yes Equal, round and reactive pupils present Neck/C-Spine: COMMON NORMALS: full ROM, no lymphadenopathy, supple and no JVD Lymph: LYMPHATIC: no lymphadenopathy noted and no lymphedema noted Resp: COMMON NORMALS: normal respiratory effort, No retractions, No use of accessory muscles and clear to auscultation bilaterally AUSCULTATION: clear to auscultation bilaterally Cardio: COMMON NORMALS: no JVD, regular rate, regular rhythm and No murmurs present (Cardio) RATE: regular rate RHYTHM: regular rhythm GI: COMMON NORMALS: Soft to palpation and No hepatosplenomegaly present AUSCULTATION: Yes normoactive bowel sounds PALPATION: Yes Soft to palpation, No Tenderness to palpation present (GI), No Guarding due to palpation present (GI) and Yes No hepatosplenomegaly present Extremity: COMMON NORMALS: normal to inspection, capillary refill normal and no calf tenderness Skin: COMMON NORMALS: no rashes or lesions noted GENERAL SKIN EXAM: no rashes or lesions noted Course Vital Signs: Vital signs: Vital Signs Temperature 97.7 F 02/09/23 13:54 Pulse Rate 99 02/09/23 13:54 Respiratory Rate 16 02/09/23 13:54 Blood Pressure 180/77 02/09/23 13:54 Pulse Oximetry 92 02/09/23 10:57 Oxygen Delivery Me thod Nasal Cannula 02/09/23 10:57 Oxygen Flow Rate 2 02/09/23 10:57 MDM - Altered Mental Status Medical Decision Making Suspect patient's altered mental status due to anticholinergic side effects from multiple medications he took promethazine, Compazine and elevated doses of diphenhydramine. Likely worsened by delayed clearance. Patient did not appear during the course of work-up also require dialysis today discussed with hospitalist and nephrology will admit. Medical Records I reviewed the patient's medical records. Lab Data I reviewed the patient's lab results. 02/09/23 08:34 02/09/23 08:34 Radiology Impressions Chest X-Ray 02/09/23 09:04 IMPRESSION: No acute findings. Abdomen/Pelvis CT 02/09/23 11:46 IMPRESSION: 1. There are a couple loops of mildly dilated small bowel in the upper abdomen. This is suspected to be transient. Low-grade partial obstruction or ileus are considered less likely. Correlate clinically. 2. Cardiomegaly with coronary artery disease. 3. Hepatosplenomegaly. 4. Bilateral benign adrenal adenomas. COMMENTS: Consistent with the [place] [employer]'s Incidental Findings Committee white paper (J Am Javier Radiol 2017): For any incidental adrenal lesion greater than or equal to 1 cm but less than or equal to 4 cm classified in this report as benign, likely benign, or containing fat (including classification as an adenoma or myelolipoma), no follow-up imaging is recommended per consensus recommendations based on imaging criteria. Further lab evaluation could be pursued if warranted based on clinical findings. ADDENDUM: 02/09/23 1303 Findings discussed with JAYDON AMADO at 02/09/2023 1:[address] 02/09/23 11:46 IMPRESSION: No acute intracranial abnormality. Laboratory Results WBC 9.38 10^3/uL (3.29-11.43) 02/09/23 08:34 RBC 3.60 10^6/uL (3.85-5.65) L 02/09/23 08:34 Hgb 12.10 g/dL (11.27-16.99) 02/09/23 08:34 Hct 35.1 % (37-53) L 02/09/23 08:34 MCV 97.5 fl (82-101) 02/09/23 08:34 MCH 33.6 pg (27-33) H 02/09/23 08:34 MCHC 34.5 g/dL (30-55) 02/09/23 08:34 RDW 14.4 % (12.1-15.1) 02/09/23 08:34 Plt Count 258 10^3/cmm (157-399) 02/09/23 08:34 MPV 9.2 fL (7.4-10.4) 02/09/23 08:34 Neut % (Auto) 76.3 % 02/09/23 08:34 Lymph % (Auto) 14.0 % 02/09/23 08:34 [place] % (Auto) 7.5 % 02/09/23 08:34 Eos % (Auto) 1.3 % 02/09/23 08:34 Baso % (Auto) 0.4 % 02/09/23 08:34 Neut # (Auto) 7.16 10^3/uL (1.8-7.7) 02/09/23 08:34 Lymph # (Auto) 1.3 10^3/uL (0.8-4.8) 02/09/23 08:34 [place] # (Auto) 0.7 10^3/uL (0.2-0.9) 02/09/23 08:34 Eos # (Auto) 0.1 10^3/uL (0.0-0.8) 02/09/23 08:34 Baso # (Auto) 0.0 10^3/uL (0.0-0.1) 02/09/23 08:34 Nucleated RBC % (auto) 0 % 02/09/23 08:34 Nucleated RBCs # 0.0 /100WBC 02/09/23 08:34 Sodium 129 mmol/L (136-145) L 02/09/23 08:34 Potassium 3.4 mmol/L (3.5-5.1) L 02/09/23 08:34 Chloride 88 mmol/L (98-107) L 02/09/23 08:34 Carbon Dioxide 31 mmol/L (22-29) H 02/09/23 08:34 Anion Gap 13.4 (5-19) 02/09/23 08:34 BUN 34 mg/dL (6-20) H 02/09/23 08:34 Creatinine 4.7 mg/dL (0.7-1.2) H 02/09/23 08:34 GFR Calculation 13.1 mL/min (90-130) L 02/09/23 08:34 Glucose 130 mg/dL (65-115) H 02/09/23 08:34 Calculated Osmolality 277 mOsm/kg (285-295) L 02/09/23 08:34 Lactic Acid 0.8 mmol/L (0.5-2.2) 02/09/23 08:34 Calcium 8.7 mg/dL (8.5-10.5) 02/09/23 08:34 Magnesium 2.0 mg/dL (1.7-2.3) 02/09/23 08:34 Total Bilirubin 0.7 mg/dL (0.15-1.2) 02/09/23 08:34 GGT 21 U/L (8-61) 02/09/23 10:33 AST 18 U/L (0-40) 02/09/23 08:34 ALT 16 U/L (0-41) 02/09/23 08:34 Alkaline Phosphatase 98 U/L (40-130) 02/09/23 08:34 Troponin T Baseline 63 ng/L (0-15) H 02/09/23 08:34 Troponin T 120 Minute 60.51 ng/L (0-15) H 02/09/23 10:33 Delta Troponin T -2.49 ABS# (0-10) L 02/09/23 10:33 C-Reactive Protein 24.4 mg/L (0.0-4.9) H 02/09/23 10:33 Total Protein 6.8 g/dL (6.6-8.7) 02/09/23 08:34 Albumin 3.9 g/dL (3.5-5.2) 02/09/23 08:34 Globulin 2.9 g/dL (1.3-4.6) 02/09/23 08:34 Lipase 22 U/L (13-60) 02/09/23 10:33 Procalcitonin 0.17 ng/mL (0-0.5) 02/09/23 10:33 Urine Color Yellow (Yellow) 02/09/23 10:07 Urine Appearance Sl hazy (CLEAR) A 02/09/23 10:07 Urine pH 5 (5-7) 02/09/23 10:07 Ur Specific [place] 1.020 (1.005-1.030) 02/09/23 10:07 Urine Protein 2+ (Negative) H 02/09/23 10:07 Urine Glucose (UA) Norm (Normal) 02/09/23 10:07 Urine Ketones Negative (Negative) 02/09/23 10:07 Urine Blood Neg (Negative) 02/09/23 10:07 Urine Nitrate Negative (Negative) 02/09/23 10:07 Urine Bilirubin Neg (Negative) 02/09/23 10:07 Urine Urobilinogen Norm mg/dL (Negative) 02/09/23 10:07 Ur Leukocyte Esterase Negative (Negative) 02/09/23 10:07 Urine RBC None /hpf (0-2) 02/09/23 10:07 Urine WBC 0-4 /hpf (0-5) H 02/09/23 10:07 Ur Squamous Epith Cells 0-4 /hpf (0-5) H 02/09/23 10:07 Amorphous Sediment Not Reportable 02/09/23 10:07 Urine Bacteria 1+ /hpf (NONE) H 02/09/23 10:07 Urine Mucus 1+ /hpf 02/09/23 10:07 Salicylates < 0.3 mg/dL (3-10) L 02/09/23 10:33 Urine Opiates Screen Negative ng/mL (Negative) 02/09/23 10:07 Acetaminophen < 5.0 ug/mL (10-30) L 02/09/23 10:33 Ur Barbiturates Screen Negative ng/mL (Negative) 02/09/23 10:07 Ur Phencyclidine Scrn Negative ng/mL (Negative) 02/09/23 10:07 Ur Amphetamines Screen Negative ng/mL (Negative) 02/09/23 10:07 U Benzodiazepines Scrn Negative ng/mL (Negative) 02/09/23 10:07 Urine Cocaine Screen Negative ng/mL (Negative) 02/09/23 10:07 U Marijuana (THC) Screen Negative ng/mL (Negative) 02/09/23 10:07 Ethyl Alcohol < 10 mg/dL (0-10) 02/09/23 10:33 Hep Bs Antigen Non-reactive (Nonreactive) 02/09/23 08:34 Hep Bs Antibody > 1000.0 (11.5-1000) H 02/09/23 08:34 All radiology interpretation(s) finalized by discharge Discharge Plan Discharge Patient Disposition: Admitted As Inpatient Admit Provider: Jaydon Amado Clinical Impression: Encephalopathy, Medication side effects, ESRD (end stage renal disease) Condition: Stable Coding Level of Care Code ED Community Support Specialist for Aaron Irene
[2023-02-09 09:46] LABS: Troponin(5th) Baseline 63 ng/L (0-15)
[2023-02-09 10:29] LABS: Amphetamines Screen Urine Negative (Negative); Barbiturates Screen Urine Negative (Negative); Benzodiazepines Screen Urine Negative (Negative); Cocaine Screen Urine Negative (Negative); Opiate Screen Urine Negative (Negative); PCP Screen Urine Negative (Negative); THC Screen Urine Negative (Negative)
[2023-02-09 10:34] LABS: Add Urine Microscopic? YES; Bilirubin Urine Neg (Negative); Blood Urine Neg (Negative); Glucose Urine UA Norm (Normal); Ketones Urine Negative (Negative); Leukocyte Esterase Urine Negative (Negative); Nitrate Urine Negative (Negative); Protein Urine 2+ (Negative); Urine Appearance SL Hazy (CLEAR); Urine Color Yellow (Yellow); Urobilinogen Urine Norm (Negative); pH Urine 5 (5-7)
[2023-02-09 10:36] LABS: WBC Urine 0-4 /hpf (0-5)
[2023-02-09 10:37] LABS: Add Urine Culture? No; Bacteria Urine 1+ /hpf; Mucus Urine 1+ /hpf; Squamous Epithelial Cell Urine 0-4 /hpf (0-5)
--- NOTE | 2023-02-09 11:01 | ECG_ITS ---
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 Measurements Intervals [place] Rate: 78 P: 38 CT: 205 QRS: 22 QRSD: 118 T: 57 QT: 414 QTc: 472 Interpretive Statements SINUS RHYTHM POSSIBLE ANTERIOR MYOCARDIAL INFARCTION , OF INDETERMINATE AGE [30 ms Q WAVE IN V3/V4, OR R < 0.2 mV IN V4] Compared to ECG 02/09/2023 09:36:13 No significant changes Electronically Signed On 02-09-2023 20:33:00 CDT by Garrison Mckinney M.D. [id number]
[2023-02-09 11:05] LABS: Troponin 5 2HR 60.51 ng/L (0-15)
[2023-02-09 11:06] LABS: Troponin 5 2HR Delta -2.49 ABS# (0-10)
--- NOTE | 2023-02-09 11:46 | CTR_ITS ---
PROCEDURE INFORMATION: Exam: CT Head Without Contrast Exam date and time: 02/09/2023 11:56 AM Age: 52 years old Clinical indication: Altered mental status/memory loss; Confusion or disorientation; Additional info: AMS TECHNIQUE: Imaging protocol: Computed tomography of the head without contrast. Radiation optimization: All CT scans at this facility use at least one of these dose optimization techniques: automated exposure control; mA and/or kV adjustment per patient size (includes targeted exams where dose is matched to clinical indication); or iterative reconstruction. REPORTING DATA: Count of CT and Cardiac NM exams in prior 12 months: This patient has received 6 known CTs and 0 known cardiac nuclear medicine studies in the 12 months prior to the current study. COMPARISON: CT head wo con* [id number] 11/17/2022 4:07 PM RADIATION DOSE METRICS: Total DLP (mGy-cm): 1240.48 FINDINGS: Brain: The brain is unremarkable. There is no mass effect. There is no acute intracranial hemorrhage. Cerebral ventricles: There is no significant ventricular dilation. The basal cisterns are unremarkable. Paranasal sinuses: The paranasal sinuses are clear. Mastoid air cells: The mastoid air cells are clear. Bones/joints: The calvarium is intact. Soft tissues: The visible extracranial soft tissues are unremarkable. CT/CT head wo con* [id number] IMPRESSION: No acute intracranial abnormality.
--- NOTE | 2023-02-09 11:46 | CTR_ITS ---
PROCEDURE INFORMATION: Exam: CT Abdomen And Pelvis Without Contrast Exam date and time: 02/09/2023 12:00 PM Age: 52 years old Clinical indication: Right lower quadrant abdominal pain with nausea and vomiting. TECHNIQUE: Imaging protocol: Computed tomography of the abdomen and pelvis without contrast. Radiation optimization: All CT scans at this facility use at least one of these dose optimization techniques: automated exposure control; mA and/or kV adjustment per patient size (includes targeted exams where dose is matched to clinical indication); or iterative reconstruction. REPORTING DATA: Count of CT and Cardiac NM exams in prior 12 months: This patient has received 6 known CTs and 0 known cardiac nuclear medicine studies in the 12 months prior to the current study. COMPARISON: CT abdomen pelvis wo con [id number] 05/23/2022 8:09 PM RADIATION DOSE METRICS: Total DLP (mGy-cm): 1222.73 FINDINGS: Lungs: Subsegmental atelectasis at the lung bases. Heart: The heart is enlarged. No pericardial effusion. No hiatal hernia. Coronary arteries: Coronary arterial calcifications are seen. Liver: The liver is enlarged measuring 21.5 cm. Gallbladder and bile ducts: The gallbladder has been removed. Pancreas: The pancreas is unremarkable. Spleen: The spleen is enlarged measuring 13.8 cm. Adrenal glands: A benign adrenal adenoma on the right measures 2.1 cm. A benign adrenal adenoma on the left measures 2.7 cm. Kidneys and ureters: The kidneys are unremarkable. Stomach and bowel: There are a couple loops of mildly dilated small bowel in the upper abdomen. This is suspected to be transient. Low-grade partial obstruction or ileus are considered less likely. Correlate clinically. Occasional colonic diverticula without evidence of acute diverticulitis. Appendix: The appendix has been removed. Intraperitoneal space: No free intraperitoneal air is seen. Vasculature: No abdominal aortic aneurysm. Lymph nodes: No retroperitoneal lymphadenopathy. Mildly prominent benign-appearing pelvic lymph nodes are noted. Urinary bladder: The bladder is unremarkable. Reproductive: The prostate measures 3.4 x 4.2 cm. Bones/joints: No acute fracture is seen. Soft tissues: Probable prior ventral abdominal hernia repair. CT/CT abdomen pelvis wo con [id number] IMPRESSION: 1. There are a couple loops of mildly dilated small bowel in the upper abdomen. This is suspected to be transient. Low-grade partial obstruction or ileus are considered less likely. Correlate clinically. 2. Cardiomegaly with coronary artery disease. 3. Hepatosplenomegaly. 4. Bilateral benign adrenal adenomas. COMMENTS: Consistent with the [employer]'s Incidental Findings Committee white paper (J Am Javier Radiol 2017): For any incidental adrenal lesion greater than or equal to 1 cm but less than or equal to 4 cm classified in this report as benign, likely benign, or containing fat (including classification as an adenoma or myelolipoma), no follow-up imaging is recommended per consensus recommendations based on imaging criteria. Further lab evaluation could be pursued if warranted based on clinical findings.
--- NOTE | 2023-02-09 11:48 | P.HP_ITS ---
Providers/Chief Complaint Primary Care Provider: Kp Montanez DO Chief Complaint: AMS History of Present Illness Rei Queen II is a 52 year old male with a past medical history of chronic renal failure, on dialysis, chronic anticoagulation on Eliquis, history of CHF, CAD, DVT, hypertension, hyperlipidemia, who presents to [facility] due to acute encephalopathy. Yesterday afternoon at about 1 PM tells me t hat patient was feeling nauseous, so he took 2 Tylenol tablets, 2 Benadryl tablets, potentially 2 baclofen tablets, Compazine, promethazine since then, he has been confused, she tells me he has been talking out of his head, she has not noticed any facial droop, no slurring of his words, no focal weakness, he was able to ambulate, no seizure-like episodes. He went to bed confused, his last meal was 1 PM yesterday. No nausea, no vomiting, it is unknown if he had a bowel movement. He has no complaints of abdominal pain. This morning he actually woke up went to dialysis and was again talking out of his head she tells me, confused, so he was brought here to the emergency room. No fevers, no neck pain, no neck stiffness, he is currently alert to person, not to place, not to time he can follow commands, he knows who the president is, his responses are delayed, he looks a bit dazed. Denies any drug use, no alcohol use. No fevers, no chills, no neck pain, neck stiffness, no facial droop no slurring of words, no focal weakness, he is able to move all extremities, no cough, urinating rosie ropriately Review of Systems Const: Denies: fever(s) or chills Eyes: Denies: change in vision ENMT: Denies: throat pain Card: Denies: palpitations Resp: Denies: dyspnea GI: Reports: abdominal pain and nausea; Denies: hematemesis, coffee ground emesis, diarrhea, hematochezia or melena : Denies: flank pain or difficulty urinating Musc: Denies: neck pain or back pain Skin/Breast: Denies: rash Neuro: Denies: headache(s), numbness in extremities, weakness in extremities, difficulty walking, dizziness, Slurred speech present or difficulty communi cating thoughts Psych: Denies: anxiety Medications/Allergies Home Medications Medication Instructions Recorded Confirmed Last Taken Type aspirin 81 mg tablet,delayed 81 mg PO QAM 06/01/19 02/09/23 02/09/23 History release insulin lispro 100 unit/mL See Rx Instructions .Route 09/25/20 02/09/23 01/16/23 History subcutaneous solution (Humalog .COMPLEX see pharmacy comments U-100 Insulin) levothyroxine 88 mcg tablet 88 mcg PO QAM 02/09/21 02/09/23 02/09/23 History docusate sodium 100 mg capsule 100 mg PO BID #30 caps 06/15/21 02/09/23 02/09/23 Rx (Colace) apixaban 2.5 mg tablet (Eliquis) 2.5 mg PO BID 09/14/21 02/09/23 02/09/23 History insulin degludec 200 unit/mL (3 52 unit SUBCUT BEDTIME 12/11/21 02/09/23 02/08/23 History mL) subcutaneous pen (Tresiba FlexTouch U-200 insulin) gabapentin 100 mg capsule 100 mg PO BID #180 caps 06/05/22 02/09/23 02/09/23 Rx baclofen 5 mg tablet 5 mg PO BID PRN Muscle Pain 06/18/22 02/09/23 01/16/23 History nitroglycerin 0.4 mg sublingual 0.4 mg sublingual Q5M PRN Chest 06/18/22 02/09/23 01/16/23 Rx tablet (Nitrostat) Pain #25 tabs sevelamer carbonate 800 mg tablet 800 mg PO TID 06/18/22 02/09/23 02/09/23 History vitamin B complex with vit C-folic 1 tab PO QPM 08/10/22 02/09/23 02/08/23 History acid 800 mcg-zinc 12.5 mg tablet (RenaPlex) bumetanide 2 mg tablet 4 mg PO BID 08/16/22 02/09/23 02/09/23 History losartan 50 mg tablet 25 mg PO BEDTIME 08/16/22 02/09/23 02/08/23 History metoprolol tartrate 25 mg tablet See Rx Instructions .Route .COMPLEX 08/16/22 02/09/23 02/09/23 History blood-glucose meter,continuous #1 ea 10/19/22 02/09/23 01/16/23 Rx (Dexcom G7 Mobile Ui Developer) atorvastatin 40 mg tablet 40 mg PO QAM #90 tabs 10/25/22 02/09/23 02/09/23 Rx bupropion HCl 300 mg 24 hr tablet, 300 mg PO QAM #30 tabs 11/23/22 02/09/23 02/09/23 Rx extended release (Wellbutrin XL) duloxetine 30 mg capsule,delayed 30 mg PO DAILY #30 caps 11/23/22 02/09/23 02/09/23 Rx release hydrocodone 7.5 mg-acetaminophen 1 tab PO Q6H PRN Pain 11/23/22 02/09/23 3 History 325 mg tablet blood-glucose sensor (Dexcom G7 #6 ea 12/17/22 02/09/23 01/16/23 Rx Sensor device) buspirone 5 mg tablet 5 mg PO TID 02/09/23 02/09/23 02/09/23 History dulaglutide 1.5 mg/0.5 mL 1.5 mg SUBCUT Q7D 02/09/23 02/09/23 02/08/23 History subcutaneous pen injector (Trulicity) ranolazine 500 mg tablet,extended 500 mg PO BID 02/09/23 02/09/23 02/09/23 History release,12 hr trazodone 100 mg tablet 400 mg PO QPM 02/09/23 02/09/23 02/08/23 History Allergies Allergy/AdvReac Type Severity Reaction Status Date / Time Iodinated Contrast Media Allergy Severe ALGY-Difficulty Verified 02/09/23 10:02 Breathing iodine Allergy Severe ALGY-Difficulty Verified 02/09/23 10:02 Breathing metoclopramide [From Reglan] Allergy Severe ALGY-Difficulty Verified 02/09/23 10:02 Breathing nalbuphine [From Nubain] Allergy Severe ADR-Diarrhe Verified 02/09/23 10:02 a naproxen [From Naprosyn] Allergy Severe ADR-Vomitin Verified 02/09/23 10:02 g Sulfa (Sulfonamide Allergy Severe ALGY-Difficulty Verified 02/09/23 10:02 Antibiotics) Breathing ketorolac Allergy Intermediate ADR-Nausea Verified 02/09/23 10:02 ondansetron [From Zofran] Allergy Intermediate ADR-Abdominal Verified 02/09/23 10:02 Pain prochlorperazine Allergy Intermediate ADR-Irritab Verified 02/09/23 10:02 [From Compazine] le codeine AdvReac Severe ALGY-Anaphy Verified 02/09/23 10:02 laxis haloperidol [From Haldol] AdvReac Intermediate ADR-Irritab Verified 02/09/23 10:02 le PFSH Acute PFSH: Medical History Acute kidney injury superimposed on CKD Acute on chronic congestive heart failure Alcohol use disorder, moderate, in sustained remission Anemia Atherosclerotic heart disease of [place] coronary artery with other forms of angina pectoris hx of CAD with prior stenting of proximal LAD, LCx, RCA Chronic anticoagulation Eliquis Chronic kidney disease -baseline Cr appears to be around 1.5 Chronic systolic heart failure D-dimer, elevated Depression Diabetes A1c-7.6 (08/2019) Diabetes DVT (deep venous thrombosis) (~03/2020) Proximal left subclavian, basilic and brachial veins, started eliquis this stay, felt present prior to admission ESRD (end stage renal disease) ESRD (end stage renal disease) Foot drop, left Generalized anxiety disorder GERD (gastroesophageal reflux disease) H/O acute myocardial infarction H/O deep venous thrombosis developed compartment syndrome History of pulmonary embolism Hyperlipidemia Hypertension Hypothyroidism Ischemic cardiomyopathy Major depressive disorder, recurrent severe without psychotic features Onychodystrophy Osteoarthritis of spine Uremic encephalopathy Surgical History H/O colonoscopy (11/14/20) 08/2015 H/O esophagogastroduodenoscopy (11/14/20) 08/2015 H/O removal of testicle left H/O skin graft H/O vasectomy History of appendectomy 1995 History of coronary artery stent placement 5x History of excision of mass 06/08/2019: Subcutaneous mass on back History of inguinal hernia repair, bilateral 1999 History of removal of Port-a-Cath Hx of cholecystectomy Peritoneal dialysis catheter in situ (06/15/21) Port-A-Cath in place Family History Grandfather Cancer skin cancer Parkinson disease Brother Hypertension Father Heart disease Mother Hypertension Stroke Aneurysm Grandmother Aneurysm Other Crohn disease Denies family history of Anesthesia complication Bleeding disorder Social History Smoking and tobacco status: never smoked Second hand smoke exposure: No Smoking risk assessment/counseling performed?: No Alcohol intake: former Year of sobriety/quit date alcohol: 2016 Former alcohol use details: Only holidays Desire information about alcohol rehabilitation?: No Counseling given: No Substance/Drug Use: never Desire information about substance/drug rehabilitation?: No Counseling given: No Lives independently: Yes Household members: significant other Marital status: Single Current occupational status: disabled Vitals/I&O/Wt Last Vital Signs Temp 97.7 F 02/09/23 07:44 Pulse 76 02/09/23 10:57 Resp 18 02/09/23 10:57 BP 175/91 02/09/23 10:57 Pulse Ox 92 02/09/23 10:57 O2 Del Method Nasal Cannula 02/09/23 10:57 O2 Flow Rate 2 02/09/23 10:57 Physical Exam Const: COMMON NORMALS: no acute distress GENERAL APPEARANCE: cooperative, well kempt and well developed ORIENTATION/CONSCIOUSNESS: Yes awake, Yes oriented to person and Yes confused; not oriented to place and not oriented to time HENMT: COMMON NORMALS: normocephalic and Normal external nose present HEAD & SCALP: normocephalic FACE & SINUS: normal facial exam NOSE: Normal external nose present Eye: COMMON NORMALS: Equal, round and reactive pupils present, EOMs intact bilaterally and conjunctivae normal PUPIL: Yes Equal, round and reactive pupils present Neck/C-Spine: COMMON NORMALS: full ROM, no lymphadenopathy, no meningeal signs, no JVD, Thyroid normal and No carotid bruits THYROID: Thyroid normal Lymph: LYMPHATIC: no lymphadenopathy noted Chest: COMMONS NORMALS: normal inspection of the chest Resp: COMMON NORMALS: normal respiratory effort, No retractions, No use of accessory muscles and clear to auscultation bilaterally AUSCULTATION: clear to auscultation bilaterally Cardio: COMMON NORMALS: regular rate, regular rhythm, S1 normal heart sound present, S2 normal heart sound present, No murmurs present (Cardio) and Peripheral pulses 2+ throughout RATE: regular rate RHYTHM: regular rhythm HEART SOUNDS: S1 normal heart sound present and S2 normal heart sound present PERIPHERAL PULSES: Peripheral pulses 2+ throughout GI: COMMON NORMALS: Normal to inspection, nondistended, normoactive bowel sounds present, Soft to palpation and non-tender : BLADDER/KIDNEY EXAM: Yes no CVA tenderness Back/Pelvis: COMMON NORMALS: no CVA tenderness Extremity: COMMON NORMALS: normal to inspection, full ROM, capillary refill normal, no calf tenderness and no pedal edema Neuro: COMMON NORMALS: CN's II-XII intact bilaterally, moves all extremities, no focal motor deficits and no sensory deficits noted MENINGEAL SIGNS: Yes no meningeal signs Psych: COMMON NORMALS: cooperative and speech normal SPEECH: Yes normal speech Skin: COMMON NORMALS: turgor normal and no jaundice GENERAL SKIN EXAM: turgor normal Data 02/09/23 08:34 02/09/23 08:34 A&P Assessment and plan (1) Encephalopathy acute: (2) Right lower quadrant abdominal pain: (3) 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 mellitus: (4) Chronic anticoagulation: (5) CRF (chronic renal failure): (6) Hypothyroidism: (7) Hyperlipidemia: (8) Major depressive disorder, recurrent severe without psychotic features: (9) Generalized anxiety disorder: Plan Acute encephalopathy -Likely from a mixture of taking Benadryl, baclofen, Tylenol, Compazine, promethazine -No focal neurologic deficits, he is alert to person, not to place, not to time can follow commands, is a bit dazed, no facial droop, no slurring of words, no meningeal signs, no fevers -We will order CT of the head -Tylenol levels, salicylate levels, alcohol level, TSH, ammonia, procal, crp -Neurochecks, aspiration precautions, night stroke scale -Telemetry monitoring Right lower quadrant pain, with nausea, vomiting -CT scan abdomen pelvis End-stage renal disease, on dialysis will receive dialysis today Type 2 diabetes mellitus CAD, serial EKGs, serial troponins, telemetry monitoring Anxiety and depression, will hold his psychotropic medications, including gabapentin, duloxetine, Wellbutrin, trazodone, until his mentation improves Attestations Medical Necessity Statement*: Patient requires hospitalization, outpatient with observation, for acute encephalopathy, right lower quadrant abdominal pain, nausea, vomiting Diagnoses Encephalopathy acute G93.40 Right lower quadrant abdominal pain R10.31 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 mellitus E11.42 Chronic anticoagulation Z79.01 CRF (chronic renal failure) N18.9 Hypothyroidism E03.9 Hyperlipidemia E78.5 Major depressive disorder, recurrent severe without psychotic features F33.2 Generalized anxiety disorder F41.1
--- NOTE | 2023-02-09 11:52 | PM.CONSULT ---
Providers/Reason For Consult Consulting Physician/Specialty*: ESRD /Nephrology Reason for Consult*: ESRD Primary Care Provider: Kp Montanez DO History of Present Illness History of Present Illness Patient is a 52-year-old male with past medical history of end-stage renal disease on dialysis per TTS schedule, history of CHF, DVT, hypertension, dyslipidemia, coronary artery disease sent to the emergency department from the dialysis center due to altered mental status. Patient's reported that she got he took 2 Benadryl tablets and baclofen and Compazine and promethazine tablets due to nausea. At the dialysis center he was noted to be confused and was sent to the ED., Vital signs were stable except elevated blood pressures, lab data significant for sodium of 129 potassium 3.4 patient admitted further management Review of Systems Narrative: Other ROS negative Medications/Allergies Home Medications Medication Instructions Recorded Confirmed Last Taken Type aspirin 81 mg tablet,delayed 81 mg PO QAM 06/01/19 02/09/23 02/09/23 History release insulin lispro 100 unit/mL See Rx Instructions .Route 09/25/20 02/09/23 01/16/23 History subcutaneous solution (Humalog .COMPLEX see pharmacy comments U-100 Insulin) levothyroxine 88 mcg tablet 88 mcg PO QAM 02/09/21 02/09/23 02/09/23 History docusate sodium 100 mg capsule 100 mg PO BID #30 caps 06/15/21 02/09/23 02/09/23 Rx (Colace) apixaban 2.5 mg tablet (Eliquis) 2.5 mg PO BID 09/14/21 02/09/23 02/09/23 History insulin degludec 200 unit/mL (3 52 unit SUBCUT BEDTIME 12/11/21 02/09/23 02/08/23 History mL) subcutaneous pen (Tresiba FlexTouch U-200 insulin) gabapentin 100 mg capsule 100 mg PO BID #180 caps 06/05/22 02/09/23 02/09/23 Rx baclofen 5 mg tablet 5 mg PO BID PRN Muscle Pain 06/18/22 02/09/23 01/16/23 History nitroglycerin 0.4 mg sublingual 0.4 mg sublingual Q5M PRN Chest 06/18/22 02/09/23 01/16/23 Rx tablet (Nitrostat) Pain #25 tabs sevelamer carbonate 800 mg tablet 800 mg PO TID 06/18/22 02/09/23 02/09/23 History vitamin B complex with vit C-folic 1 tab PO QPM 08/10/22 02/09/23 02/08/23 History acid 800 mcg-zinc 12.5 mg tablet (RenaPlex) bumetanide 2 mg tablet 4 mg PO BID 08/16/22 02/09/23 02/09/23 History losartan 50 mg tablet 25 mg PO BEDTIME 08/16/22 02/09/23 02/08/23 History metoprolol tartrate 25 mg tablet See Rx Instructions .Route .COMPLEX 08/16/22 02/09/23 02/09/23 History blood-glucose meter,continuous #1 ea 10/19/22 02/09/23 01/16/23 Rx (Dexcom G7 Pump Servicer Helper) atorvastatin 40 mg tablet 40 mg PO QAM #90 tabs 10/25/22 02/09/23 02/09/23 Rx bupropion HCl 300 mg 24 hr tablet, 300 mg PO QAM #30 tabs 11/23/22 02/09/23 02/09/23 Rx extended release (Wellbutrin XL) duloxetine 30 mg capsule,delayed 30 mg PO DAILY #30 caps 11/23/22 02/09/23 02/09/23 Rx release hydrocodone 7.5 mg-acetaminophen 1 tab PO Q6H PRN Pain 11/23/22 02/09/23 01/16/23 History 325 mg tablet blood-glucose sensor (Dexcom G7 #6 ea 12/17/22 02/09/23 01/16/23 Rx Sensor device) buspirone 5 mg tablet 5 mg PO TID 02/09/23 02/09/23 02/09/23 History dulaglutide 1.5 mg/0.5 mL 1.5 mg SUBCUT Q7D 02/09/23 02/09/23 02/08/23 History subcutaneous pen injector (Trulicity) ranolazine 500 mg tablet,extended 500 mg PO BID 02/09/23 02/09/23 02/09/23 History release,12 hr trazodone 100 mg tablet 400 mg PO QPM 02/09/23 02/09/23 02/08/23 History Allergies Allergy/AdvReac Type Severity Reaction Status Date / Time Iodinated Contrast Media Allergy Severe ALGY-Difficulty Verified 02/09/23 10:02 Breathing iodine Allergy Severe ALGY-Difficulty Verified 02/09/23 10:02 Breathing metoclopramide [From Reglan] Allergy Severe ALGY-Difficulty Verified 02/09/23 10:02 Breathing nalbuphine [From Nubain] Allergy Severe ADR-Diarrhe Verified 02/09/23 10:02 a naproxen [From Naprosyn] Allergy Severe ADR-Vomitin Verified 02/09/23 10:02 g Sulfa (Sulfonamide Allergy Severe ALGY-Difficulty Verified 02/09/23 10:02 Antibiotics) Breathing ketorolac Allergy Intermediate ADR-Nausea Verified 02/09/23 10:02 ondansetron [From Zofran] Allergy Intermediate ADR-Abdominal Verified 02/09/23 10:02 Pain prochlorperazine Allergy Intermediate ADR-Irritab Verified 02/09/23 10:02 [From Compazine] le codeine AdvReac Severe ALGY-Anaphy Verified 02/09/23 10:02 laxis haloperidol [From Haldol] AdvReac Intermediate ADR-Irritab Verified 02/09/23 10:02 le PFSH Acute PFSH: Medical History (Updated 02/09/23 @ 13:39 by Clemencia Gibson MD) Acute kidney injury superimposed on CKD Acute on chronic congestive heart failure Alcohol use disorder, moderate, in sustained remission Anemia Atherosclerotic heart disease of [place] coronary artery with other forms of angina pectoris hx of CAD with prior stenting of proximal LAD, LCx, RCA Chronic anticoagulation Eliquis Chronic kidney disease -baseline Cr appears to be around 1.5 Chronic systolic heart failure D-dimer, elevated Depression Diabetes A1c-7.6 (08/2019) Diabetes DVT (deep venous thrombosis) (~03/2020) Proximal left subclavian, basilic and brachial veins, started eliquis this stay, felt present prior to admission ESRD (end stage renal disease) ESRD (end stage renal disease) Foot drop, left Generalized anxiety disorder GERD (gastroesophageal reflux disease) H/O acute myocardial infarction H/O deep venous thrombosis developed compartment syndrome History of pulmonary embolism Hyperlipidemia Hypertension Hypothyroidism Ischemic cardiomyopathy Major depressive disorder, recurrent severe without psychotic features Onychodystrophy Osteoarthritis of spine Uremic encephalopathy Surgical History H/O colonoscopy (11/14/20) 08/2015 H/O esophagogastroduodenoscopy (11/14/20) 08/2015 H/O removal of testicle left H/O skin graft H/O vasectomy History of appendectomy 1995 History of coronary artery stent placement 5x History of excision of mass 06/08/2019: Subcutaneous mass on back History of inguinal hernia repair, bilateral 1999 History of removal of Port-a-Cath Hx of cholecystectomy Peritoneal dialysis catheter in situ (06/15/21) Port-A-Cath in place Family History Grandfather Cancer skin cancer Parkinson disease Brother Hypertension Father Heart disease Mother Hypertension Stroke Aneurysm Grandmother Aneurysm Other Crohn disease Denies family history of Anesthesia complication Bleeding disorder Social History Smoking and tobacco status: never smoked Second hand smoke exposure: No Smoking risk assessment/counseling performed?: No Alcohol intake: former Year of sobriety/quit date alcohol: 2015 Former alcohol use details: Only holidays Desire information about alcohol rehabilitation?: No Counseling given: No Substance/Drug Use: never Desire information about substance/drug rehabilitation?: No Counseling given: No Lives independently: Yes Household members: significant other Marital status: Single Current occupational status: disabled Vitals/I&O/Wt Last Vital Signs Temp 97.7 F 02/09/23 07:44 Pulse 76 02/09/23 10:57 Resp 18 02/09/23 10:57 BP 175/91 02/09/23 10:57 Pulse Ox 92 02/09/23 10:57 O2 Del Method Nasal Cannula 02/09/23 10:57 O2 Flow Rate 2 02/09/23 10:57 Physical Exam Narrative: confused , no distress S1S2 RRR per report Lungs clear per report no edema Data 02/09/23 08:34 02/09/23 08:34 A&P Assessment and plan (1) ESRD (end stage renal disease): Plan 1. End-stage renal disease: On TTS schedule as outpatient, missed hemodialysis due to altered mental status. Plan for HD today , might help his altered mental status once medications are cleared from the system. 2. Hypertension: Restart home meds, monitor 3. Anemia: Hemoglobin 12, monitor 4. Altered mental status: Likely medication induced, 5. Diabetes type 2, 6. History of DVT on chronic anticoagulation 7.? Partial SBO : Currenty NPO Patient evaluated using audiovisual cart. Time spent 40 minutes. Consult Attestations Medical Necessity Statement: per mediicne team Coding Level of Care Code Acute Code for Chg Fwd Diagnoses ESRD (end stage renal disease) N18.6
[2023-02-09 12:12] LABS: Lactic Sepsis W/Reflex 0.8 mmol/L (0.5-2.2)
[2023-02-09 12:13] LABS: C Reactive Protein 24.4 mg/L (0.0-4.9); Gamma Glutamyl Transferase 21 U/L (8-61); Lipase 22 U/L (13-60)
[2023-02-09 12:18] LABS: Procalcitonin 0.17 ng/mL (0-0.5)
[2023-02-09 12:20] LABS: Hepatitis B Surface Antigen Non-Reactive (Nonreactive)
[2023-02-09 12:24] LABS: ABG PCO2 51.4 mmHg (35-45); Arterial Blood Gas Hematocrit 39.7 % (42-52); Base Excess ABG 5.6 mmol/L (-2.0-2.0); Blood Gas Allen Test Pos; Blood Gas Operator Identificat AMH; Blood Gas Sample Site Radial, right; Blood Gas Sample Type Arterial; HCO3 ABG 31.7 mmol/L (22-26); Oxygen Device NC; PO2 ABG 82.9 mmHg (80.0-100.0)
[2023-02-09 12:43] LABS: Acetaminophen < 5.0 ug/mL (10-30); Alcohol Level < 10 mg/dL (0-10); Salicylate < 0.3 mg/dL (3-10)
[2023-02-09 13:03] LABS: Ammonia 19 umol/L (16-60)
[2023-02-09 13:09] LABS: Hepatitis B Surface AB > 1000.0 (11.5-1000)
--- NOTE | 2023-02-09 13:46 | PC.NURSE ---
dialysis Pt is having dialysis treatment.
--- NOTE | 2023-02-09 13:55 | PC.HD ---
Patient ID'd/assessed; stable for HD. Consent signed by patient. LAVF accessed without difficulty. Patient states he is somewhat woozy and confused. Able to converse, but having difficulty remembering his past medical history or why he is at the hospital today.
[2023-02-09 14:16] LABS: Thyroid Stimulating Hormone 1.61 uIU/mL (0.27-4.20)
--- NOTE | 2023-02-09 15:23 | ECG_ITS ---
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 Measurements Intervals Mayer Rate: 78 P: 27 CA: 193 QRS: -5 QRSD: 107 T: 54 QT: 412 QTc: 470 Interpretive Statements SINUS RHYTHM LOW QRS VOLTAGE IN EXTREMITY LEADS [QRS DEFLECTION < 0.5 mV IN LIMB LEADS] POSSIBLE ANTERIOR MYOCARDIAL INFARCTION , OF INDETERMINATE AGE [30 ms Q WAVE IN V3/V4, OR R < 0.2 mV IN V4] Compared to ECG 08/16/2022 09:49:19 Low QRS voltage now present First degree AV block no longer present T-wave abnormality no longer present Possible ischemia no longer present Myocardial infarct finding still present Electronically Signed On 02-09-2023 20:33:06 CDT by Garrison Mckinney M.D. [email or web address]
[2023-02-09] MEDS: sevelamer 800 mg Tablet PO (17:45)
[2023-02-09] MEDS: docusate sodium 100 mg Capsule PO (17:45)
[2023-02-09] MEDS: metoprolol tartrate 25 mg Tablet 12.5 MG PO (17:45)
[2023-02-09] MEDS: apixaban 5 mg Tablet 2.5 MG PO (17:45)
[2023-02-09] MEDS: ranolazine (12HR) 500 mg Tablet PO (17:46)
[2023-02-09] MEDS: pantoprazole 40 mg SDV IVP (17:46)
[2023-02-09] MEDS: lidocaine 1% 5 ML in potassium chloride premix 100 ML 26.25 ML IV (17:46)
[2023-02-09] MEDS: dextrose 5%-sod chloride 0.9% 1,000 ML 75 ML IV (17:47)
[2023-02-09 17:57] LABS: Glucose Point of Care 78 mg/dL (70-110)
[2023-02-09 18:39] LABS: Troponin 5 6HR 57.62 ng/L (0-15)
[2023-02-09 18:41] LABS: Troponin 5 6HR Delta -5.38 ng/L (0-12)
--- NOTE | 2023-02-09 19:31 | XRR_ITS ---
PROCEDURE INFORMATION: Exam: XR Chest Exam date and time: 02/09/2023 7:43 PM Age: 52 years old Clinical indication: Device placement; Ng tube; Prior surgery; Surgery date: 6+ months; Surgery type: Open heart. Cardiac stents. Gb. Port. Patient HX: Check S/P ng placement; Additional info: Verify ng placement TECHNIQUE: Imaging protocol: Radiologic exam of the chest. Views: 1 view. COMPARISON: CR (CHEST, ) 02/09/2023 9:14 AM FINDINGS: Tubes, catheters and devices: There is an NG tube with its tip just within the stomach and its side-hole in the distal esophagus. Lungs: Unremarkable. No consolidation. Pleural spaces: Unremarkable. No pleural effusion. No pneumothorax. Heart/Mediastinum: Unremarkable. No cardiomegaly. Bones/joints: Unremarkable. XR/XR chest 1V portable [id number] IMPRESSION: There is an NG tube with its tip just within the stomach and its side-hole in the distal esophagus.
[2023-02-09] MEDS: losartan 50 mg Tablet 25 MG PO (20:41)
--- NOTE | 2023-02-09 20:46 | PC.NURSE ---
NG tube advanced and now large amount 300 ml of drainage collected in intermittent low suction
[2023-02-09 21:06] LABS: Glucose Point of Care 109 mg/dL (70-110)
[2023-02-10] VITALS (8 sets, daily range): BP systolic 125–159; BP diastolic 74–89; PULSE 71–82; RESP 16–22; TEMP 36.6–37; O2SAT 92–98
[2023-02-10 04:52] LABS: Basophils # 0.1 10^3/uL (0.0-0.1); Basophils % 0.7 %; Eosinophils # 0.1 10^3/uL (0.0-0.8); Eosinophils % 1.3 %; Hematocrit 36.9 % (37-53); Lymphocytes # 1.4 10^3/uL (0.8-4.8); Mean Corpuscular HGB Conc 34.1 g/dL (30-55); Mean Corpuscular Hemoglobin 33.9 pg (27-33); Mean Corpuscular Volume 99.2 fl (82-101); Mean Platelet Volume 8.9 fL (7.4-10.4); Monocytes # 0.8 10^3/uL (0.2-0.9); Monocytes % 9.8 %; Neutrophils % 70.8 %; Nucleated Red Blood Cells % 0 %; Platelet Count 268 10^3/cmm (157-399); Red Blood Count 3.72 10^6/uL (3.85-5.65); Red Cell Distribution Width 14.6 % (12.1-15.1); White Blood Count 8.19 10^3/uL (3.29-11.43)
[2023-02-10 05:23] LABS: Alanine Aminotransferase 13 U/L (0-41); Albumin Level 3.7 g/dL (3.5-5.2); Alkaline Phosphatase 98 U/L (40-130); Anion Gap 13.1 (5-19); Aspartate Amino Transferase 17 U/L (0-40); Blood Urea Nitrogen 19 mg/dL (6-20); Calcium 8.6 mg/dL (8.5-10.5); Carbon Dioxide 31 mmol/L (22-29); Chloride 100 mmol/L (98-107); Globulin 2.9 g/dL (1.3-4.6); Glucose 161 mg/dL (65-115); Magnesium 2.1 mg/dL (1.7-2.3); Osmolality Calculated 296 mOsm/kg (285-295); Phosphorus 3.5 mg/dL (2.5-4.5); Potassium 4.1 mmol/L (3.5-5.1); Sodium 140 mmol/L (136-145); Total Bilirubin 0.8 mg/dL (0.15-1.2); Total Protein 6.6 g/dL (6.6-8.7)
[2023-02-10] MEDS: levothyroxine 88 mcg Tablet PO (06:10)
[2023-02-10] MEDS: aspirin 81 mg EC Tablet PO (06:10)
[2023-02-10] MEDS: atorvastatin 40 mg Tablet PO (06:11)
[2023-02-10] MEDS: dextrose 5%-sod chloride 0.9% 1,000 ML 75 ML IV ×2 (06:12→18:12)
[2023-02-10 07:07] LABS: Glucose Point of Care 124 mg/dL (70-110)
--- NOTE | 2023-02-10 09:20 | PM.CONSULT ---
Providers/Reason For Consult Consulting Physician/Specialty*: General surgery Reason for Consult*: Possible SBO Attending Physician: Jaydon Juarez MD Primary Care Provider: Kp Montanez DO History of Present Illness History of Present Illness Rei Queen II is a 52 year old male with multiple medical comorbidities including end-stage renal disease on dialysis. He presented yesterday to the ER with altered mental status after taking several medications for nausea. After being admitted to the hospital a CT scan of the abdomen was done which showed mild dilation of some upper abdomen bowel loops that was either transient or less likely partial SBO or ileus. I was contacted for these findings. In the interim an NG tube was placed with about 500 cc of output over the last 12 hours, output bilious. Patient denies any abdominal pain, has not been passing gas and last bowel movement was yesterday. Review of Systems Narrative: The plan review of system was done was negative otherwise noted in HPI Medications/Allergies Home Medications Medication Instructions Recorded Confirmed Last Taken Type aspirin 81 mg tablet,delayed 81 mg PO QAM 06/01/19 02/09/23 02/09/23 History release insulin lispro 100 unit/mL See Rx Instructions .Route 09/25/20 02/09/23 01/16/23 History subcutaneous solution (Humalog .COMPLEX see pharmacy comments U-100 Insulin) levothyroxine 88 mcg tablet 88 mcg PO QAM 02/09/21 02/09/23 02/09/23 History docusate sodium 100 mg capsule 100 mg PO BID #30 caps 06/15/21 02/09/23 02/09/23 Rx (Colace) apixaban 2.5 mg tablet (Eliquis) 2.5 mg PO BID 09/14/21 02/09/23 02/09/23 History insulin degludec 200 unit/mL (3 52 unit SUBCUT BEDTIME 12/11/21 02/09/23 02/08/23 History mL) subcutaneous pen (Tresiba FlexTouch U-200 insulin) gabapentin 100 mg capsule 100 mg PO BID #180 caps 06/05/22 02/09/23 02/09/23 Rx baclofen 5 mg tablet 5 mg PO BID PRN Muscle Pain 06/18/22 02/09/23 01/16/23 History nitroglycerin 0.4 mg sublingual 0.4 mg sublingual Q5M PRN Chest 06/18/22 02/09/23 01/16/23 Rx tablet (Nitrostat) Pain #25 tabs sevelamer carbonate 800 mg tablet 800 mg PO TID 06/18/22 02/09/23 02/09/23 History vitamin B complex with vit C-folic 1 tab PO QPM 08/10/22 02/09/23 02/08/23 History acid 800 mcg-zinc 12.5 mg tablet (RenaPlex) bumetanide 2 mg tablet 4 mg PO BID 08/16/22 02/09/23 02/09/23 History losartan 50 mg tablet 25 mg PO BEDTIME 08/16/22 02/09/23 02/08/23 History metoprolol tartrate 25 mg tablet See Rx Instructions .Route .COMPLEX 08/16/22 02/09/23 02/09/23 History blood-glucose meter,continuous #1 ea 10/19/22 02/09/23 01/16/23 Rx (Dexcom G7 Statistician Theoretical) atorvastatin 40 mg tablet 40 mg PO QAM #90 tabs 10/25/22 02/09/23 02/09/23 Rx bupropion HCl 300 mg 24 hr tablet, 300 mg PO QAM #30 tabs 11/23/22 02/09/23 02/09/23 Rx extended release (Wellbutrin XL) duloxetine 30 mg capsule,delayed 30 mg PO DAILY #30 caps 11/23/22 02/09/23 02/09/23 Rx release hydrocodone 7.5 mg-acetaminophen 1 tab PO Q6H PRN Pain 11/23/22 02/09/23 01/16/23 History 325 mg tablet blood-glucose sensor (Dexcom G7 #6 ea 12/17/22 02/09/23 01/16/23 Rx Sensor device) buspirone 5 mg tablet 5 mg PO TID 02/09/23 02/09/23 02/09/23 History dulaglutide 1.5 mg/0.5 mL 1.5 mg SUBCUT Q7D 02/09/23 02/09/23 02/08/23 History subcutaneous pen injector (Trulicity) ranolazine 500 mg tablet,extended 500 mg PO BID 02/09/23 02/09/23 02/09/23 History release,12 hr trazodone 100 mg tablet 400 mg PO QPM 02/09/23 02/09/23 02/08/23 History Allergies Allergy/AdvReac Type Severity Reaction Status Date / Time Iodinated Contrast Media Allergy Severe ALGY-Difficulty Verified 02/09/23 10:02 Breathing iodine Allergy Severe ALGY-Difficulty Verified 02/09/23 10:02 Breathing metoclopramide [From Reglan] Allergy Severe ALGY-Difficulty Verified 02/09/23 10:02 Breathing nalbuphine [From Nubain] Allergy Severe ADR-Diarrhe Verified 02/09/23 10:02 a naproxen [From Naprosyn] Allergy Severe ADR-Vomitin Verified 02/09/23 10:02 g Sulfa (Sulfonamide Allergy Severe ALGY-Difficulty Verified 02/09/23 10:02 Antibiotics) Breathing ketorolac Allergy Intermediate ADR-Nausea Verified 02/09/23 10:02 ondansetron [From Zofran] Allergy Intermediate ADR-Abdominal Verified 02/09/23 10:02 Pain prochlorperazine Allergy Intermediate ADR-Irritab Verified 02/09/23 10:02 [From Compazine] le codeine AdvReac Severe ALGY-Anaphy Verified 02/09/23 10:02 laxis haloperidol [From Haldol] AdvReac Intermediate ADR-Irritab Verified 02/09/23 10:02 le Current Medications Generic Name Dose Route Start Last Admin Trade Name Freq PRN Reason Stop Dose Admin Apixaban 2.5 mg 02/09/23 18:00 02/09/23 17:45 Apixaban 5 Mg Tablet PO 2.5 mg BID RANDY Administration Aspirin 81 mg 02/10/23 06:00 02/10/23 06:10 Aspirin 81 Mg Ec Tablet PO 81 mg QAM RANDY Administration Atorvastatin Calcium 40 mg 02/10/23 06:00 02/10/23 06:11 Atorvastatin 40 Mg Tablet PO 40 mg QAM RANDY Administration Docusate Sodium 100 mg 02/09/23 18:00 02/09/23 17:45 Docusate Sodium 100 Mg Capsule PO 100 mg BID RANDY Administration Dextrose/Sodium Chloride 1,000 mls @ 75 mls/hr 02/09/23 16:30 02/10/23 06:12 Dextrose 5%-Sod Chloride 0.9% IV 75 mls/hr .[id number] RANDY Administration Insulin Human Lispro 0 unit 02/09/23 13:17 02/10/23 09:10 Insulin Lispro 100 Unit/1 Ml SUBCUT Not Given TIDWM RANDY Protocol Levothyroxine Sodium 88 mcg 02/10/23 06:00 02/10/23 06:10 Levothyroxine 88 Mcg Tablet PO 88 mcg QAM RANDY Administration Losartan Potassium 25 mg 02/09/23 21:00 02/09/23 20:41 Losartan 50 Mg Tablet PO 25 mg BEDTIME RANDY Administration Metoprolol Tartrate 12.5 mg 02/09/23 18:00 02/09/23 17:45 Metoprolol Tartrate 25 Mg Tablet PO 12.5 mg BID RANDY Administration Non-Formulary Medication 1 tab 02/09/23 18:00 02/09/23 17:48 Vit B [id number] Ac-Zinc [Renaplex] PO Not Given QPM RANDY Pantoprazole Sodium 40 mg 02/09/23 14:00 02/09/23 17:46 Pantoprazole 40 Mg Sdv IVP 40 mg Q24H RANDY Administration Ranolazine 500 mg 02/09/23 18:00 02/09/23 17:46 Ranolazine (12hr) 500 Mg Tablet PO 500 mg BID RANDY Administration Sevelamer Carbonate 800 mg 02/09/23 15:00 02/09/23 20:48 Sevelamer 800 Mg Tablet PO Not Given TID RANDY PFSH Acute PFSH: Medical History Acute kidney injury superimposed on CKD Acute on chronic congestive heart failure Alcohol use disorder, moderate, in sustained remission Anemia Atherosclerotic heart disease of [place] coronary artery with other forms of angina pectoris hx of CAD with prior stenting of proximal LAD, LCx, RCA Chronic anticoagulation Eliquis Chronic kidney disease -baseline Cr appears to be around 1.5 Chronic systolic heart failure D-dimer, elevated Depression Diabetes A1c-7.6 (08/2019) Diabetes DVT (deep venous thrombosis) (~03/2020) Proximal left subclavian, basilic and brachial veins, started eliquis this stay, felt present prior to admission ESRD (end stage renal disease) ESRD (end stage renal disease) Foot drop, left Generalized anxiety disorder GERD (gastroesophageal reflux disease) H/O acute myocardial infarction H/O deep venous thrombosis developed compartment syndrome History of pulmonary embolism Hyperlipidemia Hypertension Hypothyroidism Ischemic cardiomyopathy Major depressive disorder, recurrent severe without psychotic features Onychodystrophy Osteoarthritis of spine Uremic encephalopathy Surgical History H/O colonoscopy (11/14/20) 08/2015 H/O esophagogastroduodenoscopy (11/14/20) 08/2015 H/O removal of testicle left H/O skin graft H/O vasectomy History of appendectomy 1995 History of coronary artery stent placement 5x History of excision of mass 06/08/2019: Subcutaneous mass on back History of inguinal hernia repair, bilateral 1999 History of removal of Port-a-Cath Hx of cholecystectomy Peritoneal dialysis catheter in situ (06/15/21) Port-A-Cath in place Family History Grandfather Cancer skin cancer Parkinson disease Brother Hypertension Father Heart disease Mother Hypertension Stroke Aneurysm Grandmother Aneurysm Other Crohn disease Denies family history of Anesthesia complication Bleeding disorder Social History Smoking and tobacco status: never smoked Second hand smoke exposure: No Smoking risk assessment/counseling performed?: No Alcohol intake: former Year of sobriety/quit date alcohol: 2015 Former alcohol use details: Only holidays Desire information about alcohol rehabilitation?: No Counseling given: No Substance/Drug Use: never Desire information about substance/drug rehabilitation?: No Counseling given: No Lives independently: Yes Household members: significant other Marital status: Single Current occupational status: disabled Vitals/I&O/Wt Last Vital Signs Temp 98.6 F 02/10/23 08:00 Pulse 82 02/10/23 08:00 Resp 17 02/10/23 08:00 BP 159/89 02/10/23 08:00 Pulse Ox 92 02/10/23 08:00 O2 Del Method Nasal Cannula 02/10/23 08:00 O2 Flow Rate 2 02/10/23 08:00 02/09/23 02/10/23 02/10/23 22:59 06:59 14:59 Intake Total 405 / 405 931.25 / 1336.25 Output Total 3300 / 3300 1150 / 4450 Balance -2895 / -2895 -218.75 / -3113.75 Weight last 48 hrs Weight 246 lb 7.629 oz Physical Exam Narrative: General : Patient is well developed , at the moment he is alert and oriented Head : Normal cephalic, a-traumatic. Nose : Mucous membranes are without erythema. Lungs : Equal chest rise bilaterally, no use of accessory muscles, trachea is midline. Chest: Surgical incisions in the right upper chest are healing well. Abdomen : Soft, minimal distention, nontender benign abdominal exam. Extremities : No edema. Upper extremities are normal bilaterally. Back : non-tender to palpation, no CVA tenderness. Data 02/10/23 04:42 02/10/23 04:42 A&P Assessment and plan (1) Encephalopathy: (2) ESRD (end stage renal disease): Plan After complete history, physical examination and review of all available clinical data the following is my assessment. Patient CT scan findings are most likely transient, may represent a mild ileus, but there is no concern for actual small bowel obstruction at the moment. I agree with continuing the per impression until tomorrow morning, after that the NG tube probably can be removed and patient can be started on clear liquid diet, laxative will be recommended at that point in order to stimulate bowel movements. I have informed the patient of the findings, I have asked him to ambulate as much as possible to stimulate bowel function. No indication for surgical intervention x-rays at this moment, general surgery will continue to follow. Coding Level of Care Code 36972 Diagnoses Encephalopathy G93.40 ESRD (end stage renal disease) N18.6
[2023-02-10] MEDS: ranolazine (12HR) 500 mg Tablet PO ×2 (09:44→16:37)
[2023-02-10] MEDS: docusate sodium 100 mg Capsule PO ×2 (09:44→16:38)
[2023-02-10] MEDS: apixaban 5 mg Tablet 2.5 MG PO ×2 (09:44→16:38)
[2023-02-10] MEDS: metoprolol tartrate 25 mg Tablet 12.5 MG PO ×2 (09:44→16:40)
[2023-02-10] MEDS: sevelamer 800 mg Tablet PO ×3 (09:44→21:23)
[2023-02-10 10:41] LABS: Glucose Point of Care 139 mg/dL (70-110)
--- NOTE | 2023-02-10 11:52 | PM.PN ---
Subjective Subjective: Patient was seen this morning, he has not had a bowel movement, has not passed gas, but he tells me that he is burping and belching, no abdominal pain reported this morning, he is much more alert awake, following commands, he had NG tube output overnight, currently is clamped Vitals/I&O/Wt Last Vital Signs Temp 98.6 F 02/10/23 08:00 Pulse 82 02/10/23 08:00 Resp 17 02/10/23 08:00 BP 159/89 02/10/23 08:00 Pulse Ox 92 02/10/23 08:00 O2 Del Method Nasal Cannula 02/10/23 08:00 O2 Flow Rate 2 02/10/23 08:00 02/09/23 02/10/23 02/10/23 22:59 06:59 14:59 Intake Total 405 / 405 931.25 / 1336.25 Output Total 3300 / 3300 1150 / 4450 Balance -2895 / -2895 -218.75 / -3113.75 Weight last 48 hrs Weight 111.8 kg Physical Exam Const: COMMON NORMALS: no acute distress and patient oriented x3 Resp: COMMON NORMALS: normal respiratory effort, No retractions, No use of accessory muscles and clear to auscultation bilaterally AUSCULTATION: clear to auscultation bilaterally Cardio: COMMON NORMALS: regular rate, regular rhythm, S1 normal heart sound present and S2 normal heart sound present RATE: regular rate RHYTHM: regular rhythm HEART SOUNDS: S1 normal heart sound present and S2 normal heart sound present GI: OTHER: Abdomen is soft, distended, good bowel sounds in all 4 quadrants, no guarding, no rebound, no rigidity Extremity: COMMON NORMALS: no pedal edema Neuro: COMMON NORMALS: patient oriented x3 Psych: COMMON NORMALS: mental status grossly normal Data 02/10/23 04:42 02/10/23 04:42 A&P Assessment and plan (1) Encephalopathy acute: (2) Right lower quadrant abdominal pain: (3) 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 mellitus: (4) Chronic anticoagulation: (5) CRF (chronic renal failure): (6) Hypothyroidism: (7) Hyperlipidemia: (8) Major depressive disorder, recurrent severe without psychotic features: (9) Generalized anxiety disorder: (10) Encephalopathy: (11) Medication side effects: (12) Partial small bowel obstruction: Plan Acute encephalopathy, back to baseline -Likely from a mixture of taking Benadryl, baclofen, Tylenol, Compazine, promethazine -No focal neurologic deficits, he is alert to person, not to place, not to time can follow commands, is a bit dazed, no facial droop, no slurring of words, no meningeal signs, no fevers -Head CT within normal limits -Neurochecks, aspiration precautions, nih stroke scale -Telemetry monitoring Right lower quadrant pain, with nausea, vomiting Possible partial small bowel obstruction versus ileus -CT scan abdomen pelvis CT/CT abdomen pelvis wo con [id number] IMPRESSION: 1. ? There are a couple loops of mildly dilated small bowel in the upper abdomen. This is suspected to be transient. Low-grade partial obstruction or ileus are considered less likely. Correlate clinically. 2. ? Cardiomegaly with coronary artery disease. 3. ? Hepatosplenomegaly. 4. ? Bilateral benign adrenal adenomas. Plan -General surgery consulted -Currently n.p.o., NG tube clamped -Continue serial abdominal exams -Monitor for bowel movement, passage of gas -If he improves we can try a clear liquid diet this afternoon, potentially remove NG tube -Continue IV fluids -Full code End-stage renal disease, on dialysis Type 2 diabetes mellitus CAD, serial EKGs, serial troponins, telemetry monitoring Anxiety and depression, will resume his psychotropic medications, including gabapentin, duloxetine, Wellbutrin, trazodone, as his mentation has improved Attestations Medical Necessity Statement*: Patient requires hospitalization for partial small bowel obstruction, acute encephalopathy, end-stage renal disease Diagnoses Encephalopathy acute G93.40 Right lower quadrant abdominal pain R10.31 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 mellitus E11.42 Chronic anticoagulation Z79.01 CRF (chronic renal failure) N18.9 Hypothyroidism E03.9 Hyperlipidemia E78.5 Major depressive disorder, recurrent severe without psychotic features F33.2 Generalized anxiety disorder F41.1 Encephalopathy G93.40 Medication side effects T88.7XXA Partial small bowel obstruction K56.600
--- NOTE | 2023-02-10 13:51 | PM.PN ---
Subjective Subjective: no sob Medications: Reviewed: Yes Vitals/I&O/Wt Last Vital Signs Temp 98.2 F 02/10/23 11:58 Pulse 71 02/10/23 11:58 Resp 16 02/10/23 11:58 BP 154/84 02/10/23 11:58 Pulse Ox 94 02/10/23 11:58 O2 Del Method Nasal Cannula 02/10/23 11:58 O2 Flow Rate 2 02/10/23 08:00 02/09/23 02/10/23 02/10/23 22:59 06:59 14:59 Intake Total 405 / 405 931.25 / 1336.25 Output Total 3300 / 3300 1150 / 4450 Balance -2895 / -2895 -218.75 / -3113.75 Weight last 48 hrs Weight 111.8 kg Physical Exam Narrative: confused , no distress S1S2 RRR per report Lungs clear per report no edema Data 02/11/23 04:54 02/11/23 04:54 A&P Assessment and plan (1) ESRD (end stage renal disease): Plan 1. End-stage renal disease: On TTS schedule as outpatient, missed hemodialysis due to altered mental status. s/pHD yesterday and next HD Saturday 2. Hypertension: Restart home meds, monitor 3. Anemia: Hemoglobin 12, monitor 4. Altered mental status: Likely medication induced, 5. Diabetes type 2, 6. History of DVT on chronic anticoagulation 7.? Partial SBO : Currenty NPO, Management for primary team Patient evaluated using audiovisual cart. Time spent 40 minutes. Attestations Medical Necessity Statement*: per mediicne team Coding Level of Care Code Acute Code for Chg Fwd Diagnoses ESRD (end stage renal disease) N18.6
[2023-02-10] MEDS: gabapentin 100 mg Capsule PO (16:38)
[2023-02-10] MEDS: trazodone 100 mg Tablet 400 MG PO (16:38)
[2023-02-10] MEDS: BuSPIRONE 10 mg Tablet 5 MG PO ×2 (16:40→21:23)
[2023-02-10] MEDS: pantoprazole 40 mg SDV IVP (16:40)
[2023-02-10 16:54] LABS: Glucose Point of Care 153 mg/dL (70-110)
[2023-02-10] MEDS: insulin lispro 100 unit/1 mL SUBCUT (18:11)
[2023-02-10 21:01] LABS: Glucose Point of Care 182 mg/dL (70-110)
[2023-02-10] MEDS: losartan 50 mg Tablet 25 MG PO (21:24)
[2023-02-11] VITALS (8 sets, daily range): BP systolic 122–134; BP diastolic 75–78; PULSE 63–72; RESP 15–16; TEMP 36.3–36.7; O2SAT 92–95
[2023-02-11 05:11] LABS: Basophils # 0.1 10^3/uL (0.0-0.1); Basophils % 0.6 %; Eosinophils # 0.2 10^3/uL (0.0-0.8); Eosinophils % 2.2 %; Hematocrit 32.3 % (37-53); Lymphocytes # 1.7 10^3/uL (0.8-4.8); Lymphocytes % 20.5 %; Mean Corpuscular HGB Conc 33.4 g/dL (30-55); Mean Corpuscular Hemoglobin 33.6 pg (27-33); Mean Corpuscular Volume 100.6 fl (82-101); Mean Platelet Volume 9.2 fL (7.4-10.4); Monocytes # 0.9 10^3/uL (0.2-0.9); Monocytes % 11.2 %; Neutrophils # 5.38 10^3/uL (1.8-7.7); Nucleated Red Blood Cells % 0 %; Platelet Count 229 10^3/cmm (157-399); Red Blood Count 3.21 10^6/uL (3.85-5.65); Red Cell Distribution Width 14.8 % (12.1-15.1); White Blood Count 8.28 10^3/uL (3.29-11.43)
[2023-02-11 05:25] LABS: Alanine Aminotransferase 7 U/L (0-41); Alkaline Phosphatase 78 U/L (40-130); Anion Gap 9.6 (5-19); Aspartate Amino Transferase 13 U/L (0-40); Blood Urea Nitrogen 28 mg/dL (6-20); Calcium 7.8 mg/dL (8.5-10.5); Carbon Dioxide 30 mmol/L (22-29); Chloride 101 mmol/L (98-107); Globulin 2.8 g/dL (1.3-4.6); Glomerular Filtration Rate 15.3 mL/min (90-130); Glucose 144 mg/dL (65-115); Magnesium 1.9 mg/dL (1.7-2.3); Osmolality Calculated 292 mOsm/kg (285-295); Phosphorus 2.9 mg/dL (2.5-4.5); Potassium 3.6 mmol/L (3.5-5.1); Sodium 137 mmol/L (136-145); Total Bilirubin 0.7 mg/dL (0.15-1.2); Total Protein 5.8 g/dL (6.6-8.7)
[2023-02-11] MEDS: buPROPion XL (24 HR) 300 mg Tablet PO (06:10)
[2023-02-11] MEDS: levothyroxine 88 mcg Tablet PO (06:10)
[2023-02-11] MEDS: aspirin 81 mg EC Tablet PO (06:10)
[2023-02-11] MEDS: atorvastatin 40 mg Tablet PO (06:10)
[2023-02-11 06:21] LABS: Glucose Point of Care 141 mg/dL (70-110)
--- NOTE | 2023-02-11 07:37 | PM.PN ---
Subjective Subjective: 52-year-old male who is admitted to the hospital with changes in mental status, I was consulted for possible SBO. Patient appears to have resolved any kind of abdominal obstruction, is passing gas had a bowel movement NG tube is out and he has a clear liquid tray this morning. Vitals/I&O/Wt Last Vital Signs Temp 97.4 F L 02/11/23 04:00 Pulse 72 02/11/23 06:00 Resp 16 02/11/23 04:00 BP 122/75 02/11/23 04:00 Pulse Ox 92 02/11/23 04:00 O2 Del Method Room Air 02/11/23 04:00 O2 Flow Rate 2 02/10/23 08:00 02/10/23 02/11/23 02/11/23 22:59 06:59 14:59 Intake Total 1380 / 1380 Output Total 350 / 350 Balance 1030 / 1030 Weight last 48 hrs Weight 246 lb 7.629 oz Physical Exam GI: OTHER: Abdomen is soft, nontender, minimal distention Data 02/11/23 04:54 02/11/23 04:54 A&P Assessment and plan (1) Partial small bowel obstruction: Plan Patient with resolving partial small bowel obstruction. Abdominal exam is completely benign, there is return of bowel function. ? Patient can be advanced as tolerated ? No need for follow-up with general surgery as outpatient. ? General surgery will remain available as needed. Attestations Medical Necessity Statement*: Patient with resolving small bowel obstruction, will need additional days of hospitalization for management of medical problems. Coding Level of Care Code Acute Code for Chg Fwd Diagnoses Partial small bowel obstruction K56.600
[2023-02-11] MEDS: insulin lispro 100 unit/1 mL SUBCUT (08:14)
[2023-02-11] MEDS: ranolazine (12HR) 500 mg Tablet PO (08:15)
[2023-02-11] MEDS: apixaban 5 mg Tablet 2.5 MG PO (08:16)
[2023-02-11] MEDS: gabapentin 100 mg Capsule PO (08:16)
[2023-02-11] MEDS: sevelamer 800 mg Tablet PO (08:16)
[2023-02-11] MEDS: docusate sodium 100 mg Capsule PO (08:17)
[2023-02-11] MEDS: metoprolol tartrate 25 mg Tablet 12.5 MG PO (08:17)
[2023-02-11] MEDS: duloxetine 30 mg Capsule PO (08:17)
[2023-02-11] MEDS: dextrose 5%-sod chloride 0.9% 1,000 ML 75 ML IV (08:18)
[2023-02-11] MEDS: BuSPIRONE 10 mg Tablet 5 MG PO (08:18)
--- NOTE | 2023-02-11 11:54 | P.DS_ITS ---
Discharge Providers Date of Admission: 02/09/23 11:25 Date of Discharge: February 11, 2023 Attending Provider at Admission: Audi Juarez MD Attending Provider at Discharge: Andrew Gonzalez Primary Care Provider: Kp Montanez DO Diagnoses at Discharge Discharge Diagnosis (1) ESRD (end stage renal disease): Status: Acute Reason for Visit Reason for Visit: AMS Hospital Course Hospital Course 52-year-old gentleman admitted on 02/09 with altered mental status after taking several medications for nausea, on presentation with findings of partial SBO versus ileus with mild elation of upper abdominal bowel loops on CT. Was treated with supportive measures, bowel rest, NG decompression. Opioids were held. Ambulation was encouraged. AMS resolved. His usual psychotropic medications were resumed. Partial bowel obstruction with resolution today, and he is cleared for discharge. He reports he is doing well and ready to return home. Exercise caution with opiates or other medications that may contribute to bowel obstruction. Please reassess his medications again to see if can cut down on anything not absolutely necessary. Physical Exam Const: COMMON NORMALS: patient oriented x3 and alert GENERAL APPEARANCE: cooperative ORIENTATION/CONSCIOUSNESS: Yes awake HENMT: COMMON NORMALS: oropharynx normal Neck/C-Spine: COMMON NORMALS: no JVD Resp: COMMON NORMALS: normal respiratory effort and clear to auscultation bilaterally AUSCULTATION: clear to auscultation bilaterally Cardio: COMMON NORMALS: no JVD, regular rhythm, S1 normal heart sound present, S2 normal heart sound present and No murmurs present (Cardio) RHYTHM: regular rhythm HEART SOUNDS: S1 normal heart sound present and S2 normal heart sound present GI: COMMON NORMALS: Normal to inspection, nondistended, normoactive bowel sounds present, Soft to palpation and non-tender PALPATION: Yes Soft to palpation Extremity: COMMON NORMALS: no joint enlargement and no pedal edema Neuro: COMMON NORMALS: patient oriented x3 and moves all extremities SENSORIUM/ORIENTATION: Yes alert Skin: COMMON NORMALS: no rashes or lesions noted GENERAL SKIN EXAM: no rashes or lesions noted Discharge Data Studies Completed and Pending Completed Studies During Hospitalization Category Date Time Status CT abdomen pelvis wo con [id number] Stat Cat Scan 02/09/23 11:[address] head wo con* [id number] Stat Cat Scan 02/09/23 11:46 Completed XR chest 1V portable [id number] Stat Exams 02/09/23 09:04 Completed XR chest 1V portable [id number] Stat Exams 02/09/23 19:31 Completed Pending at discharge Category Date Time Status Complete Blood Count w/Auto AM LABS Lab 02/12/23 04:00 Ordered Comprehensive Metabolic Panel AM LABS Lab 02/12/23 04:00 Ordered Magnesium AM LABS Lab 02/12/23 04:00 Ordered Phosphorus AM LABS Lab 02/12/23 04:00 Ordered Radiology Impressions Abdomen/Pelvis CT 02/09/23 11:46 IMPRESSION: 1. There are a couple loops of mildly dilated small bowel in the upper abdomen. This is suspected to be transient. Low-grade partial obstruction or ileus are considered less likely. Correlate clinically. 2. Cardiomegaly with coronary artery disease. 3. Hepatosplenomegaly. 4. Bilateral benign adrenal adenomas. COMMENTS: Consistent with the [employer] [place] [employer]'s Incidental Findings Committee white paper (J Am Javier Radiol 2017): For any incidental adrenal lesion greater than or equal to 1 cm but less than or equal to 4 cm classified in this report as benign, likely benign, or containing fat (including classification as an adenoma or myelolipoma), no follow-up imaging is recommended per consensus recommendations based on imaging criteria. Further lab evaluation could be pursued if warranted based on clinical findings. ADDENDUM: 02/09/23 1303 Findings discussed with AUDI JUAREZ at 02/09/2023 1:[address] 02/09/23 11:46 IMPRESSION: No acute intracranial abnormality. Chest X-Ray 02/09/23 19:31 IMPRESSION: There is an NG tube with its tip just within the stomach and its side-hole in the distal esophagus. Laboratory Results WBC 8.28 10^3/uL (3.29-11.43) 02/11/23 04:54 RBC 3.21 10^6/uL (3.85-5.65) L 02/11/23 04:54 Hgb 10.80 g/dL (11.27-16.99) L 02/11/23 04:54 Hct 32.3 % (37-53) L 02/11/23 04:54 MCV 100.6 fl (82-101) 02/11/23 04:54 MCH 33.6 pg (27-33) H 02/11/23 04:54 MCHC 33.4 g/dL (30-55) 02/11/23 04:54 RDW 14.8 % (12.1-15.1) 02/11/23 04:54 Plt Count 229 10^3/cmm (157-399) 02/11/23 04:54 MPV 9.2 fL (7.4-10.4) 02/11/23 04:54 Neut % (Auto) 65.0 % 02/11/23 04:54 Lymph % (Auto) 20.5 % 02/11/23 04:54 [place] % (Auto) 11.2 % 02/11/23 04:54 Eos % (Auto) 2.2 % 02/11/23 04:54 Baso % (Auto) 0.6 % 02/11/23 04:54 Neut # (Auto) 5.38 10^3/uL (1.8-7.7) 02/11/23 04:54 Lymph # (Auto) 1.7 10^3/uL (0.8-4.8) 02/11/23 04:54 [place] # (Auto) 0.9 10^3/uL (0.2-0.9) 02/11/23 04:54 Eos # (Auto) 0.2 10^3/uL (0.0-0.8) 02/11/23 04:54 Baso # (Auto) 0.1 10^3/uL (0.0-0.1) 02/11/23 04:54 Nucleated RBC % (auto) 0 % 02/11/23 04:54 Nucleated RBCs # 0.0 /100WBC 02/11/23 04:54 Specimen Type Arterial 02/09/23 12:12 Sample Site Radial, right 02/09/23 12:12 ABG pH 7.40 (7.35-7.45) 02/09/23 12:12 ABG pCO2 51.4 mmHg (35-45) H 02/09/23 12:12 ABG pO2 82.9 mmHg (80.0-100.0) 02/09/23 12:12 ABG HCO3 31.7 mmol/L (22-26) H 02/09/23 12:12 ABG Base Excess 5.6 mmol/L (-2.0-2.0) H 02/09/23 12:12 Scottie Test Pos 02/09/23 12:12 Hematocrit 39.7 % (42-52) L 02/09/23 12:12 O2 Delivery Device Nc 02/09/23 12:12 O2 Liters/Min 2.0 % 02/09/23 12:12 FiO2 28.0 % 02/09/23 12:12 Slab Miller Operator ID Amh 02/09/23 12:12 Sodium 137 mmol/L (136-145) 02/11/23 04:54 Potassium 3.6 mmol/L (3.5-5.1) 02/11/23 04:54 Chloride 101 mmol/L (98-107) 02/11/23 04:54 Carbon Dioxide 30 mmol/L (22-29) H 02/11/23 04:54 Anion Gap 9.6 (5-19) 02/11/23 04:54 BUN 28 mg/dL (6-20) H 02/11/23 04:54 Creatinine 4.1 mg/dL (0.7-1.2) H 02/11/23 04:54 GFR Calculation 15.3 mL/min (90-130) L 02/11/23 04:54 Glucose 144 mg/dL (65-115) H 02/11/23 04:54 POC Glucose 141 mg/dL (70-110) H 02/11/23 06:12 Calculated Osmolality 292 mOsm/kg (285-295) 02/11/23 04:54 Lactic Acid 0.8 mmol/L (0.5-2.2) 02/09/23 08:34 Calcium 7.8 mg/dL (8.5-10.5) L 02/11/23 04:54 Phosphorus 2.9 mg/dL (2.5-4.5) 02/11/23 04:54 Magnesium 1.9 mg/dL (1.7-2.3) 02/11/23 04:54 Total Bilirubin 0.7 mg/dL (0.15-1.2) 02/11/23 04:54 GGT 21 U/L (8-61) 02/09/23 10:33 AST 13 U/L (0-40) 02/11/23 04:54 ALT 7 U/L (0-41) 02/11/23 04:54 Alkaline Phosphatase 78 U/L (40-130) 02/11/23 04:54 Ammonia 19 umol/L (16-60) 02/09/23 12:37 Troponin T Baseline 63 ng/L (0-15) H 02/09/23 08:34 Troponin T 120 Minute 60.51 ng/L (0-15) H 02/09/23 10:33 Delta Troponin T -2.49 ABS# (0-10) L 02/09/23 10:33 Troponin T Hi Sens 6Hr 57.62 ng/L (0-15) H 02/09/23 17:56 Troponin T Hi Sens 6Hr Delta -5.38 ng/L (0-12) L 02/09/23 17:56 C-Reactive Protein 24.4 mg/L (0.0-4.9) H 02/09/23 10:33 Total Protein 5.8 g/dL (6.6-8.7) L 02/11/23 04:54 Albumin 3.0 g/dL (3.5-5.2) L 02/11/23 04:54 Globulin 2.8 g/dL (1.3-4.6) 02/11/23 04:54 Lipase 22 U/L (13-60) 02/09/23 10:33 Procalcitonin 0.17 ng/mL (0-0.5) 02/09/23 10:33 TSH 1.61 uIU/mL (0.27-4.20) 02/09/23 10:33 Urine Color Yellow (Yellow) 02/09/23 10:07 Urine Appearance Sl hazy (CLEAR) A 02/09/23 10:07 Urine pH 5 (5-7) 02/09/23 10:07 Ur Specific [place] 1.020 (1.005-1.030) 02/09/23 10:07 Urine Protein 2+ (Negative) H 02/09/23 10:07 Urine Glucose (UA) Norm (Normal) 02/09/23 10:07 Urine Ketones Negative (Negative) 02/09/23 10:07 Urine Blood Neg (Negative) 02/09/23 10:07 Urine Nitrate Negative (Negative) 02/09/23 10:07 Urine Bilirubin Neg (Negative) 02/09/23 10:07 Urine Urobilinogen Norm mg/dL (Negative) 02/09/23 10:07 Ur Leukocyte Esterase Negative (Negative) 02/09/23 10:07 Urine RBC None /hpf (0-2) 02/09/23 10:07 Urine WBC 0-4 /hpf (0-5) H 02/09/23 10:07 Ur Squamous Epith Cells 0-4 /hpf (0-5) H 02/09/23 10:07 Amorphous Sediment Not Reportable 02/09/23 10:07 Urine Bacteria 1+ /hpf (NONE) H 02/09/23 10:07 Urine Mucus 1+ /hpf 02/09/23 10:07 Salicylates < 0.3 mg/dL (3-10) L 02/09/23 10:33 Urine Opiates Screen Negative ng/mL (Negative) 02/09/23 10:07 Acetaminophen < 5.0 ug/mL (10-30) L 02/09/23 10:33 Ur Barbiturates Screen Negative ng/mL (Negative) 02/09/23 10:07 Ur Phencyclidine Scrn Negative ng/mL (Negative) 02/09/23 10:07 Ur Amphetamines Screen Negative ng/mL (Negative) 02/09/23 10:07 U Benzodiazepines Scrn Negative ng/mL (Negative) 02/09/23 10:07 Urine Cocaine Screen Negative ng/mL (Negative) 02/09/23 10:07 U Marijuana (THC) Screen Negative ng/mL (Negative) 02/09/23 10:07 Ethyl Alcohol < 10 mg/dL (0-10) 02/09/23 10:33 Hep Bs Antigen Non-reactive (Nonreactive) 02/09/23 08:34 Hep Bs Antibody > 1000.0 (11.5-1000) H 02/09/23 08:34 Vitals Last Vital Signs Temp 97.8 F 02/11/23 11:04 Pulse 63 02/11/23 11:04 Resp 15 02/11/23 11:04 BP 127/76 02/11/23 11:04 Pulse Ox 94 02/11/23 11:04 O2 Del Method Room Air 02/11/23 11:04 O2 Flow Rate 2 02/11/23 08:00 Discharge Plan Discharge Patient Disposition: Home Condition: Stable Prescriptions: Continued aspirin 81 mg tablet,delayed release (DR/EC) 81 mg PO QAM Eliquis 2.5 mg tablet 2.5 mg PO BID baclofen 5 mg tablet 5 mg PO BID PRN (Reason: Muscle Pain) sevelamer carbonate 800 mg tablet 800 mg PO TID nitroglycerin [Nitrostat] 0.4 mg tablet, sublingual 0.4 mg SUBLINGUAL Q5M PRN (Reason: Chest Pain) Qty: 25 2RF (DME) Dexcom G7 Nuclear Officer Misc See Rx Instructions .Route Qty: 1 0RF Rx Instructions: As directed hydrocodone-acetaminophen 7.5-325 mg tablet 1 tab PO Q6H PRN (Reason: Pain) bupropion HCl [Wellbutrin XL] 300 mg tablet extended release 24 hr 300 mg PO QAM Qty: 30 2RF duloxetine 30 mg capsule,delayed release(DR/EC) 30 mg PO DAILY Qty: 30 2RF RenaPlex 800 mcg- 12.5 mg tablet 1 tab PO QPM atorvastatin 40 mg tablet 40 mg PO QAM Qty: 90 2RF (DME) Dexcom G7 Sensor Device See Rx Instructions .ROUTE .COMPLEX Qty: 6 0RF Dose Instruction: CHANGE every 10 DAYS Rx Instructions: CHANGE every 10 DAYS insulin lispro [Humalog U-100 Insulin] 100 unit/mL solution See Rx Instructions .ROUTE .COMPLEX Rx Instructions: SLIDING SCALE TID docusate sodium [Colace] 100 mg capsule 100 mg PO BID Qty: 30 0RF levothyroxine 88 mcg tablet 88 mcg PO QAM Tresiba FlexTouch U-200 200 unit/mL (3 mL) insulin pen 52 unit SUBCUT BEDTIME gabapentin 100 mg Capsule 100 mg PO BID Qty: 180 0RF losartan 50 mg tablet 25 mg PO BEDTIME metoprolol tartrate 25 mg tablet See Rx Instructions .ROUTE .COMPLEX Rx Instructions: 12.5MG PO BID EXCEPT NO AM DOSES ON , , AND SAT bumetanide 2 mg tablet 4 mg PO BID buspirone 5 mg tablet 5 mg PO TID ranolazine 500 mg tablet extended release 12 hr 500 mg PO BID trazodone 100 mg tablet 400 mg PO QPM Trulicity 1.5 mg/0.5 mL pen injector 1.5 mg SUBCUT Q7D Rx Instructions: ON SATURDAY Discharge Orders: Discharge Order (Routine); Ordered 02/11/23 Ordered By: Andrew Gonzalez Referrals: Kp Montanez DO [Primary Care Provider] - 02/18/23 8:20 am Discharge Diet: Advance as tolerated, As Directed and Full LIquid Discharge Activity: Increase activity as tolerated Patient Instructions: Constipation (GEN), Dialysis Diet (GEN), Bowel Obstruction (GEN), Opioid Safety Activity Restrictions/Additional Instructions: Please exercise caution with opioids, hydrocodone, as they slow down gastrointestinal movement may lead to constipation, may lead to recurrence of bowel obstruction. Avoid opioids if possible. Avoid constipation. Return to the hospital in case of any worsening or new concerning symptoms. Resume usual schedule on hemodialysis and follow-up with nephrology. Continue renal hemodialysis diet. Discharge Attestations Time Spent in Discharge Care*: greater than 30 min Status at Discharge: Cognitive status at discharge: cognitively intact , Behavioral status at discharge: cooperative and independent in ADL's , Quality Metrics Clinical Quality Measures [ No reported AMI, CVA or VTE this stay] Coding Level of Care Code 45557 Total time (in minutes) for Discharge: 35 Diagnoses ESRD (end stage renal disease) N18.6
--- NOTE | 2023-02-11 12:54 | PC.NURSE ---
Port a cath deaccessed per protocol. Tolerated well. Needle intact. No swelling, drainage, redness noted. Pt discharge education completed. Medicaid transport called. Belongings gathered for patient transport. All questions answered.
== END 2023-02-11 12:00 | disposition home or self-care (01) ==
LOC: ER 09:29 → MEDSURG 12:55
PROVIDERS: Hospitalist; Admitting Provider Family Medicine; Emergency Provider Family Medicine; PCP Internal Medicine; Visit Provider Internal Medicine
DX: E11.22 Type 2 diabetes mellitus with diabetic chronic kidney disease (principal); I13.0 Hypertensive heart and chronic kidney disease with heart failure and stage 1 through stage 4 chronic kidney disease, or unspecified chronic kidney disease; N18.6 End stage renal disease; I50.22 Chronic systolic (congestive) heart failure; D63.1 Anemia in chronic kidney disease; Z99.2 Dependence on renal dialysis; R41.82 Altered mental status, unspecified; I25.10 Atherosclerotic heart disease of native coronary artery without angina pectoris; R16.2 Hepatomegaly with splenomegaly, not elsewhere classified; D35.02 Benign neoplasm of left adrenal gland; D35.01 Benign neoplasm of right adrenal gland; K56.600 Partial intestinal obstruction, unspecified as to cause; Z86.718 Personal history of other venous thrombosis and embolism; Z79.01 Long term (current) use of anticoagulants; G93.40 Encephalopathy, unspecified; R10.31 Right lower quadrant pain; E03.9 Hypothyroidism, unspecified; E78.5 Hyperlipidemia, unspecified; F33.2 Major depressive disorder, recurrent severe without psychotic features; F41.1 Generalized anxiety disorder; Z79.82 Long term (current) use of aspirin; Z79.4 Long term (current) use of insulin; I25.110 Atherosclerotic heart disease of native coronary artery with unstable angina pectoris; Z95.5 Presence of coronary angioplasty implant and graft
CPT/HCPCS: 36415; 36416; 36591; 36600; 70450; 71045; 74176; 80053; 80306; 80307; 81001; 82140; 82803; 82962; 82977; 83605; 83690; 83735; 84100; 84145; 84443; 84484; 85025; 86140; 86706; 87340; 90935; 93005; 96365; 96366; 96367; 96372; 96375; 99285; C9113; G0378; J1815; J3480; J7042; Q3014

== ENCOUNTER → 2023-02-20 07:56 | Outpatient (BNVA) | payer MEDICARE, MEDICAID, SELFPAY | PROVIDERS: PCP Internal Medicine; Visit Provider Podiatrist Foot & Ankle Surgery | DX: E11.8 Type 2 diabetes mellitus with unspecified complications (principal); E11.42 Type 2 diabetes mellitus with diabetic polyneuropathy; L60.3 Nail dystrophy; Z79.4 Long term (current) use of insulin | CPT/HCPCS: 11721 ==

== ENCOUNTER 2023-02-27 10:53 | Emergency (ER) | payer MEDICARE, MEDICAID, SELFPAY ==
[2023-02-27 11:27] VITALS: BP 188/71; PULSE 85; RESP 18; TEMP 36.9; O2SAT 96; BMI 40.8
--- NOTE | 2023-02-27 11:44 | W.ED.RECABL ---
HPI - Recheck/Abnormal Lab/Rx General: Chief Complaint: Recheck/Abnormal Lab/Rx Stated Complaint: sent per Dr. Montanez Time Seen by Provider: 02/27/23 11:40 History of Present Illness: 52-year-old male presents for lab check for his potassium. Patient is dialysis patient missed 2 sessions of dialysis because he was feeling under the weather . Patient reports he was just trying to be courteous and so he missed a couple sessions. He was called by the dialysis center and told to come have his potassium checked. He went to his primary care provider who reports that they can check it because they do not know how to access his port or have the ability to access his port. He has no complaints. Review of Systems Const: Denies: fever(s) or chills Card: Denies: chest pain or palpitations Resp: Denies: dyspnea or productive cough GI: Denies: abdominal pain, nausea or vomiting Neuro: Denies: headache(s) or numbness in extremities Psych: Denies: anxiety or depression PFS ED PFSH: Medical History Acute kidney injury superimposed on CKD Acute on chronic congestive heart failure Alcohol use disorder, moderate, in sustained remission Anemia Atherosclerotic heart disease of [place] coronary artery with other forms of angina pectoris hx of CAD with prior stenting of proximal LAD, LCx, RCA Chronic anticoagulation Eliquis Chronic kidney disease -baseline Cr appears to be around 1.5 Chronic systolic heart failure D-dimer, elevated Depression Diabetes A1c-7.6 (08/2019) Diabetes DVT (deep venous thrombosis) (~03/2020) Proximal left subclavian, basilic and brachial veins, started eliquis this stay, felt present prior to admission ESRD (end stage renal disease) ESRD (end stage renal disease) Foot drop, left Generalized anxiety disorder GERD (gastroesophageal reflux disease) H/O acute myocardial infarction H/O deep venous thrombosis developed compartment syndrome History of pulmonary embolism Hyperlipidemia Hypertension Hypothyroidism Ischemic cardiomyopathy Major depressive disorder, recurrent severe without psychotic features Onychodystrophy Osteoarthritis of spine Uremic encephalopathy Surgical History H/O colonoscopy (11/14/20) 08/2015 H/O esophagogastroduodenoscopy (11/14/20) 08/2015 H/O removal of testicle left H/O skin graft H/O vasectomy History of appendectomy 1995 History of coronary artery stent placement 5x History of excision of mass 06/08/2019: Subcutaneous mass on back History of inguinal hernia repair, bilateral 1999 History of removal of Port-a-Cath Hx of cholecystectomy Peritoneal dialysis catheter in situ (06/15/21) Port-A-Cath in place Family History Grandfather Cancer skin cancer Parkinson disease Brother Hypertension Father Heart disease Mother Hypertension Stroke Aneurysm Grandmother Aneurysm Other Crohn's disease Denies family history of Anesthesia complication Bleeding disorder Social History Smoking and tobacco/nicotine status: never used tobacco/nicotine Second hand smoke exposure: No Alcohol intake: former Year of sobriety/quit date alcohol: 2015 Former alcohol use details: Only holidays Substance/Drug Use: never Lives independently: Yes Household members: significant other Marital status: Single Current occupational status: disabled Physical Exam Const: COMMON NORMALS: no acute distress, average body habitus and patient oriented x3 Chest: COMMONS NORMALS: normal inspection of the chest Resp: COMMON NORMALS: normal respiratory effort, No use of accessory muscles and clear to auscultation bilaterally AUSCULTATION: clear to auscultation bilaterally Cardio: COMMON NORMALS: regular rate, regular rhythm and Peripheral pulses 2+ throughout RATE: regular rate RHYTHM: regular rhythm PERIPHERAL PULSES: Peripheral pulses 2+ throughout Neuro: COMMON NORMALS: patient oriented x3, moves all extremities and no focal motor deficits Psych: COMMON NORMALS: mental status grossly normal, Normal thought process present and cooperative THOUGHT PROCESS: Normal thought process present Skin: COMMON NORMALS: no rashes or lesions noted and turgor normal GENERAL SKIN EXAM: no rashes or lesions noted and turgor normal Course Vital Signs: Vital signs: Vital Signs Temperature 98 F 02/27/23 13:44 Pulse Rate 78 02/27/23 13:44 Respiratory Rate 18 02/27/23 13:44 Blood Pressure 134/76 02/27/23 13:44 Pulse Oximetry 98 02/27/23 13:44 Oxygen Delivery Me thod Room Air 02/27/23 13:30 MDM - Recheck/Abnormal Lab/Rx Medical Decision Making Patient's diagnostic studies were all reviewed and interpreted by me. Patient's potassium was 4.4 not concerning. His creatinine is slightly elevated but that is consistent with being on dialysis and missing 2 sessions. Patient with no concerning acute findings. He is stable and discharged home. He should follow-up and have his dialysis tomorrow as already scheduled. Lab Data I reviewed the patient's lab results. 02/27/23 12:34 02/27/23 13:00 Laboratory Results WBC 7.90 10^3/uL (3.29-11.43) 02/27/23 12:34 RBC 3.72 10^6/uL (3.85-5.65) L 02/27/23 12:34 Hgb 12.50 g/dL (11.27-16.99) 02/27/23 12:34 Hct 36.5 % (37-53) L 02/27/23 12:34 MCV 98.1 fl (82-101) 02/27/23 12:34 MCH 33.6 pg (27-33) H 02/27/23 12:34 MCHC 34.2 g/dL (30-55) 02/27/23 12:34 RDW 14.5 % (12.1-15.1) 02/27/23 12:34 Plt Count 310 10^3/cmm (157-399) 02/27/23 12:34 MPV 9.2 fL (7.4-10.4) 02/27/23 12:34 Neut % (Auto) 67.5 % 02/27/23 12:34 Lymph % (Auto) 20.5 % 02/27/23 12:34 Leslie % (Auto) 8.2 % 02/27/23 12:34 Eos % (Auto) 2.2 % 02/27/23 12:34 Baso % (Auto) 1.1 % 02/27/23 12:34 Neut # (Auto) 5.33 10^3/uL (1.8-7.7) 02/27/23 12:34 Lymph # (Auto) 1.6 10^3/uL (0.8-4.8) 02/27/23 12:34 Leslie # (Auto) 0.7 10^3/uL (0.2-0.9) 02/27/23 12:34 Eos # (Auto) 0.2 10^3/uL (0.0-0.8) 02/27/23 12:34 Baso # (Auto) 0.1 10^3/uL (0.0-0.1) 02/27/23 12:34 Nucleated RBC % (auto) 0 % 02/27/23 12:34 Nucleated RBCs # 0.0 /100WBC 02/27/23 12:34 Sodium 137 mmol/L (136-145) 02/27/23 13:00 Potassium 4.4 mmol/L (3.5-5.1) 02/27/23 13:00 Chloride 96 mmol/L (98-107) L 02/27/23 13:00 Carbon Dioxide 30 mmol/L (22-29) H 02/27/23 13:00 Anion Gap 15.4 (5-19) 02/27/23 13:00 BUN 56 mg/dL (6-20) H 02/27/23 13:00 Creatinine 3.3 mg/dL (0.7-1.2) H 02/27/23 13:00 GFR Calculation 19.6 mL/min (90-130) L 02/27/23 13:00 Glucose 151 mg/dL (65-115) H 02/27/23 13:00 Calculated Osmolality 302 mOsm/kg (285-295) H 02/27/23 13:00 Calcium 10.2 mg/dL (8.5-10.5) 02/27/23 13:00 Total Bilirubin 0.4 mg/dL (0.15-1.2) 02/27/23 13:00 AST 14 U/L (0-40) 02/27/23 13:00 ALT 15 U/L (0-41) 02/27/23 13:00 Alkaline Phosphatase 107 U/L (40-130) 02/27/23 13:00 Total Protein 7.1 g/dL (6.6-8.7) 02/27/23 13:00 Albumin 4.0 g/dL (3.5-5.2) 02/27/23 13:00 Globulin 3.1 g/dL (1.3-4.6) 02/27/23 13:00 No radiology studies performed this visit Discharge Plan Discharge Patient Disposition: Home Clinical Impression: ESRD (end stage renal disease) Condition: Stable Prescriptions: No Action aspirin 81 mg tablet,delayed release (DR/EC) 81 mg PO QAM Eliquis 2.5 mg tablet 2.5 mg PO BID sevelamer carbonate 800 mg tablet 800 mg PO TID nitroglycerin [Nitrostat] 0.4 mg tablet, sublingual 0.4 mg SUBLINGUAL Q5M PRN (Reason: Chest Pain) Qty: 25 2RF (DME) Dexcom G7 Driver License Reviewing Officer Misc See Rx Instructions .Route Qty: 1 0RF Rx Instructions: As directed hydrocodone-acetaminophen 7.5-325 mg tablet 1 tab PO Q6H PRN (Reason: Pain) bupropion HCl [Wellbutrin XL] 300 mg tablet extended release 24 hr 300 mg PO QAM Qty: 30 2RF atorvastatin 40 mg tablet 40 mg PO QAM Qty: 90 2RF (DME) Dexcom G7 Sensor Device See Rx Instructions .ROUTE .COMPLEX Qty: 6 0RF Dose Instruction: CHANGE every 10 DAYS Rx Instructions: CHANGE every 10 DAYS insulin lispro [Humalog U-100 Insulin] 100 unit/mL solution See Rx Instructions .ROUTE .COMPLEX Rx Instructions: SLIDING SCALE TID docusate sodium [Colace] 100 mg capsule 100 mg PO BID Qty: 30 0RF levothyroxine 88 mcg tablet 88 mcg PO QAM Tresiba FlexTouch U-200 200 unit/mL (3 mL) insulin pen 52 unit SUBCUT BEDTIME gabapentin 100 mg Capsule 100 mg PO BID Qty: 180 0RF bumetanide 2 mg tablet 4 mg PO BID buspirone 5 mg tablet 5 mg PO TID ranolazine 500 mg tablet extended release 12 hr 500 mg PO BID trazodone 100 mg tablet 400 mg PO QPM Trulicity 1.5 mg/0.5 mL pen injector 1.5 mg SUBCUT Q7D Rx Instructions: ON SATURDAY tizanidine 2 mg Tablet 2 mg PO TID PRN (Reason: Muscle Spasm) promethazine 25 mg tablet 25 mg PO Q6H PRN (Reason: Nausea) (DME) Dexcom G7 Driver License Reviewing Officer Misc MISCELLANEOUS RenaPlex-D 800 mcg-12.5 mg -2,000 unit tablet 1 tab PO QPM duloxetine 30 mg capsule,delayed release(DR/EC) 30 mg PO QAM Discharge Orders: Discharge ED (Routine); Ordered 02/27/23 Ordered By: Macario Henderson Referrals: Kp Montanez DO [Primary Care Provider] - Discharge Diet: Usual diet Discharge Activity: Resume usual activity Patient Instructions: End Stage Kidney Disease (ED), Hemodialysis (DC), Opioid Safety, Pain Management Activity Restrictions/Additional Instructions: Please keep your appointment for dialysis tomorrow. Follow-up your primary care provider as needed. Coding Level of Care Code ED Building Inspector for Aaron Irene
[2023-02-27 12:39] LABS: Basophils # 0.1 10^3/uL (0.0-0.1); Basophils % 1.1 %; Eosinophils # 0.2 10^3/uL (0.0-0.8); Eosinophils % 2.2 %; Hematocrit 36.5 % (37-53); Lymphocytes # 1.6 10^3/uL (0.8-4.8); Lymphocytes % 20.5 %; Mean Corpuscular HGB Conc 34.2 g/dL (30-55); Mean Corpuscular Hemoglobin 33.6 pg (27-33); Mean Corpuscular Volume 98.1 fl (82-101); Mean Platelet Volume 9.2 fL (7.4-10.4); Monocytes # 0.7 10^3/uL (0.2-0.9); Monocytes % 8.2 %; Neutrophils # 5.33 10^3/uL (1.8-7.7); Neutrophils % 67.5 %; Nucleated Red Blood Cells % 0 %; Platelet Count 310 10^3/cmm (157-399); Red Blood Count 3.72 10^6/uL (3.85-5.65); Red Cell Distribution Width 14.5 % (12.1-15.1)
[2023-02-27 13:26] LABS: Alanine Aminotransferase 15 U/L (0-41); Alkaline Phosphatase 107 U/L (40-130); Anion Gap 15.4 (5-19); Aspartate Amino Transferase 14 U/L (0-40); Blood Urea Nitrogen 56 mg/dL (6-20); Calcium 10.2 mg/dL (8.5-10.5); Carbon Dioxide 30 mmol/L (22-29); Chloride 96 mmol/L (98-107); Globulin 3.1 g/dL (1.3-4.6); Glomerular Filtration Rate 19.6 mL/min (90-130); Glucose 151 mg/dL (65-115); Osmolality Calculated 302 mOsm/kg (285-295); Potassium 4.4 mmol/L (3.5-5.1); Sodium 137 mmol/L (136-145); Total Bilirubin 0.4 mg/dL (0.15-1.2); Total Protein 7.1 g/dL (6.6-8.7)
[2023-02-27 13:30] VITALS: BP 134/76; PULSE 78; RESP 18; TEMP 36.6; O2SAT 98
[2023-02-27 13:44] VITALS: BP 134/76; PULSE 78; RESP 18; TEMP 36.6; O2SAT 98
== END 2023-02-27 13:45 | disposition home or self-care (01) ==
PROVIDERS: Emergency Provider Student in an Organized Health Care Education/Training Program; PCP Internal Medicine
DX: E11.22 Type 2 diabetes mellitus with diabetic chronic kidney disease (principal); I12.0 Hypertensive chronic kidney disease with stage 5 chronic kidney disease or end stage renal disease; N18.6 End stage renal disease; Z99.2 Dependence on renal dialysis; I25.10 Atherosclerotic heart disease of native coronary artery without angina pectoris; E78.5 Hyperlipidemia, unspecified; Z79.01 Long term (current) use of anticoagulants; Z79.85 Long-term (current) use of injectable non-insulin antidiabetic drugs; Z79.82 Long term (current) use of aspirin; Z79.4 Long term (current) use of insulin
CPT/HCPCS: 36415; 80053; 85025; 99283

== ENCOUNTER → 2023-03-15 09:38 | Day surgery (SDC) | payer MEDICARE, MEDICAID, SELFPAY ==
[2023-03-15 09:50] VITALS: BP 148/83; PULSE 80; RESP 18; TEMP 36.3; O2SAT 94
== END ==
PROVIDERS: PCP Internal Medicine; Visit Provider Internal Medicine
DX: Z95.828 Presence of other vascular implants and grafts (principal)
CPT/HCPCS: 96523

== ENCOUNTER 2023-04-24 09:28 | Oncology outpatient (recurring) (ONCR) | payer MEDICARE, MEDICAID, SELFPAY ==
[2023-04-24 09:52] VITALS: BP 162/79; PULSE 82; RESP 16; TEMP 36.2; O2SAT 96
== END 2023-05-19 23:59 | disposition home or self-care (01) ==
PROVIDERS: PCP Internal Medicine; Visit Provider Internal Medicine
DX: Z45.2 Encounter for adjustment and management of vascular access device (principal)

== ENCOUNTER 2023-05-02 06:43 | Emergency (ER) | payer MEDICARE, MEDICAID, SELFPAY ==
[2023-05-02] VITALS (10 sets, daily range): BP systolic 102–195; BP diastolic 65–109; PULSE 77–93; RESP 16–34; TEMP 36.6; O2SAT 95–99; BMI 43.2
--- NOTE | 2023-05-02 06:47 | ECG_ITS ---
[facility] Test Date: 2023-05-02 Pat Name: Rei Queen Department: Room: Gender: Male Climatology Professor: : 1970 Requested By: Timo Hart Order Number: [id number] Becky MD: Tory Lopez M.D. Measurements Intervals [place] Rate: 96 P: 50 OR: 203 QRS: 3 QRSD: 104 T: 66 QT: 362 QTc: 460 Interpretive Statements SINUS RHYTHM POSSIBLE LEFT ATRIAL ENLARGEMENT [-0.1mV P-WAVE IN V1/V2] POSSIBLE ANTERIOR MYOCARDIAL INFARCTION , OF INDETERMINATE AGE [30 ms Q WAVE IN V3/V4, OR R < 0.2 mV IN V4] Compared to ECG 02/09/2023 11:01:27 No significant changes Electronically Signed On 05-02-2023 12:17:39 GLUE MACHINE OPERATOR by Tory Lopez M.D. [email or web address]
--- NOTE | 2023-05-02 06:47 | XR_ITS ---
WS: [id number] Portable AP upright chest, 05/02/2023 Clinical Data: dyspnea/cough Comparison: Portable chest, 02/09/2023 Findings: No nodules, masses or effusions are seen. The heart is at the upper limits of normal. The p ulmonary vascularity is not increased. No pneumonia or pneumothorax is seen. There is a left infusion catheter ending in the superior vena cava. There are monitor leads on the chest wall. Impression: Minimal cardiomegaly.
[2023-05-02 07:14] LABS: Basophils # 0.1 10^3/uL (0.0-0.1); Basophils % 0.7 %; Eosinophils # 0.3 10^3/uL (0.0-0.8); Eosinophils % 2.7 %; Lymphocytes # 1.3 10^3/uL (0.8-4.8); Lymphocytes % 13.3 %; Mean Corpuscular HGB Conc 33.2 g/dL (30-55); Mean Corpuscular Hemoglobin 32.9 pg (27-33); Mean Platelet Volume 9.3 fL (7.4-10.4); Monocytes # 0.6 10^3/uL (0.2-0.9); Monocytes % 6.5 %; Neutrophils # 7.28 10^3/uL (1.8-7.7); Neutrophils % 76.3 %; Nucleated Red Blood Cells % 0 %; Platelet Count 254 10^3/cmm (157-399); Red Blood Count 3.13 10^6/uL (3.85-5.65); Red Cell Distribution Width 13.8 % (12.1-15.1); White Blood Count 9.55 10^3/uL (3.29-11.43)
--- NOTE | 2023-05-02 07:27 | ED_ITS ---
HPI - Chest Pain 2 General: Chief Complaint: Chest Pain Stated Complaint: CP Time Seen by Provider: 05/02/23 06:45 Source: patient Mode of arrival: EMS History of Present Illness: 52-year-old male presents emergency room complaining of episode of shortness of breath and chest discomfort that began this morning when he first woke up. Patient has history of coronary disease previous bypass history of congestive heart failure his end-stage renal disease earlier this year he transition from peritoneal dialysis to hemodialysis he is due for dialysis today he normally gets it on Saturdays. He denies any fever sweats or chills. He was given aspirin and nitro in the field. Patient has had extensive workup over the last few years including several stress test and heart catheterizations which has not shown any critical coronary artery disease , Stress test last year negative a year prior to that elective angiography done did not show any significant stenosis or restenosis that is besides his prior stents. MD complaint: chest pain Onset (ago): hour(s) Timing of current episode: episodic Prior episodes: Yes Onset: during rest Pain location: left chest Pain radiation: left arm Severity: mild Relieving factors: nothing Exacerbating factors: nothing Associated symptoms: Deny abdominal pain, diaphoresis, dyspnea, fever(s), leg edema, nausea, palpitations, sense of impending doom, syncope or vomiting Treatment prior to arrival: none Review of Systems 2 Const: Denies: fever(s), chills or diaphoresis Card: Denies: chest pain, palpitations or syncope Resp: Denies: dyspnea GI: Denies: abdominal pain, nausea or vomiting : Denies: dysuria, urinary frequency or urinary urgency Musc: Denies: neck pain or back pain Skin/Breast: Denies: rash PFSH ED 2 PFSH: Medical History ESRD (end stage renal disease) Uremic encephalopathy Generalized anxiety disorder ESRD (end stage renal disease) D-dimer, elevated Acute on chronic congestive heart failure History of pulmonary embolism Diabetes Acute kidney injury superimposed on CKD GERD (gastroesophageal reflux disease) Alcohol use disorder, moderate, in sustained remission Major depressive disorder, recurrent severe without psychotic features DVT (deep venous thrombosis) (~03/2020) Proximal left subclavian, basilic and brachial veins, started eliquis this stay, felt present prior to admission Chronic kidney disease -baseline Cr appears to be around 1.5 Chronic systolic heart failure Atherosclerotic heart disease of [place] coronary artery with other forms of angina pectoris hx of CAD with prior stenting of proximal LAD, LCx, RCA Ischemic cardiomyopathy Onychodystrophy Chronic anticoagulation Eliquis Osteoarthritis of spine Hypothyroidism Hypertension Hyperlipidemia Diabetes A1c-7.6 (08/2019) Depression Anemia Foot drop, left H/O acute myocardial infarction H/O deep venous thrombosis developed compartment syndrome Surgical History Peritoneal dialysis catheter in situ (06/15/21) History of appendectomy 1995 History of excision of mass 06/08/2019: Subcutaneous mass on back History of removal of Port-a-Cath Port-A-Cath in place H/O vasectomy Hx of cholecystectomy History of coronary artery stent placement 5x H/O skin graft History of inguinal hernia repair, bilateral 2000 H/O removal of testicle left H/O colonoscopy (11/14/20) 08/2015 H/O esophagogastroduodenoscopy (11/14/20) 08/2015 Family History Grandfather Cancer skin cancer Parkinson disease Brother Hypertension Father Heart disease Mother Hypertension Stroke Aneurysm Grandmother Aneurysm Other Crohn's disease Denies family history of Anesthesia complication Bleeding disorder Social History Smoking and tobacco/nicotine status: never used tobacco/nicotine Second hand smoke exposure: No Alcohol intake: former Year of sobriety/quit date alcohol: 2015 Former alcohol use details: Only holidays Substance/Drug Use: never Lives independently: Yes Household members: significant other Marital status: Single Current occupational status: disabled Physical Exam 2 Const: COMMON NORMALS: no acute distress GENERAL APPEARANCE: cooperative and comfortable ORIENTATION/CONSCIOUSNESS: Yes awake, Yes oriented to person, Yes oriented to place and Yes oriented to time HENMT: COMMON NORMALS: normocephalic, atraumatic and hearing grossly normal bilaterally HEAD & SCALP: normocephalic and atraumatic Resp: COMMON NORMALS: normal respiratory effort, No retractions, No use of accessory muscles and clear to auscultation bilaterally AUSCULTATION: clear to auscultation bilaterally Cardio: COMMON NORMALS: regular rate, regular rhythm and No murmurs present (Cardio) RATE: regular rate RHYTHM: regular rhythm GI: COMMON NORMALS: Soft to palpation and No hepatosplenomegaly present A USCULTATION: Yes normoactive bowel sounds PALPATION: Yes Soft to palpation, No Tenderness to palpation present (GI), No Guarding due to palpation present (GI) and Yes No hepatosplenomegaly present Extremity: COMMON NORMALS: normal to inspection, capillary refill normal, no clubbing, cyanosis or edema, no calf tenderness and no pedal edema Neuro: SENSORIUM/ORIENTATION: Yes oriented to person, Yes oriented to place and Yes oriented to time Skin: COMMON NORMALS: no rashes or lesions noted GENERAL SKIN EXAM: no rashes or lesions noted Course 2 Vital Signs: Vital signs: Vital Signs Temperature 98 F 05/02/23 06:44 Pulse Rate 77 05/02/23 09:29 Respiratory Rate 28 H 05/02/23 09:18 Blood Pressure 188/89 05/02/23 09:29 Pulse Oximetry 95 05/02/23 09:29 Oxygen Delivery Me thod Nasal Cannula 05/02/23 09:18 Oxygen Flow Rate 3 05/02/23 09:18 MDM - Chest Pain Medical Decision Making Cardiac enzymes within normal range. Did have a slight bump in his troponin however he is no longer having any chest discomfort. He had an angiogram done about a year and a half ago that did not show any critical disease. I suspect his troponin is elevated due to fluid overload and his chronic kidney disease. He is asymptomatic now we will discharge patient to the dialysis clinic for his usual run of dialysis return if has further problems Medical Records I reviewed the patient's medical records. Lab Data I reviewed the patient's lab results. 05/02/23 06:58 05/02/23 06:58 Laboratory Results WBC 9.55 10^3/uL (3.29-11.43) 05/02/23 06:58 RBC 3.13 10^6/uL (3.85-5.65) L 05/02/23 06:58 Hgb 10.30 g/dL (11.27-16.99) L 05/02/23 06:58 Hct 31.0 % (37-53) L 05/02/23 06:58 MCV 99.0 fl (82-101) 05/02/23 06:58 MCH 32.9 pg (27-33) 05/02/23 06:58 MCHC 33.2 g/dL (30-55) 05/02/23 06:58 RDW 13.8 % (12.1-15.1) 05/02/23 06:58 Plt Count 254 10^3/cmm (157-399) 05/02/23 06:58 MPV 9.3 fL (7.4-10.4) 05/02/23 06:58 Neut % (Auto) 76.3 % 05/02/23 06:58 Lymph % (Auto) 13.3 % 05/02/23 06:58 [place] % (Auto) 6.5 % 05/02/23 06:58 Eos % (Auto) 2.7 % 05/02/23 06:58 Baso % (Auto) 0.7 % 05/02/23 06:58 Neut # (Auto) 7.28 10^3/uL (1.8-7.7) 05/02/23 06:58 Lymph # (Auto) 1.3 10^3/uL (0.8-4.8) 05/02/23 06:58 [place] # (Auto) 0.6 10^3/uL (0.2-0.9) 05/02/23 06:58 Eos # (Auto) 0.3 10^3/uL (0.0-0.8) 05/02/23 06:58 Baso # (Auto) 0.1 10^3/uL (0.0-0.1) 05/02/23 06:58 Nucleated RBC % (auto) 0 % 05/02/23 06:58 Nucleated RBCs # 0.0 /100WBC 05/02/23 06:58 Sodium 140 mmol/L (136-145) 05/02/23 06:58 Potassium 3.5 mmol/L (3.5-5.1) 05/02/23 06:58 Chloride 103 mmol/L (98-107) 05/02/23 06:58 Carbon Dioxide 26 mmol/L (22-29) 05/02/23 06:58 Anion Gap 14.5 (5-19) 05/02/23 06:58 BUN 38 mg/dL (6-20) H 05/02/23 06:58 Creatinine 3.0 mg/dL (0.7-1.2) H 05/02/23 06:58 GFR Calculation 21.9 mL/min (90-130) L 05/02/23 06:58 Glucose 188 mg/dL (65-115) H 05/02/23 06:58 Calculated Osmolality 304 mOsm/kg (285-295) H 05/02/23 06:58 Calcium 7.8 mg/dL (8.5-10.5) L 05/02/23 06:58 Total Bilirubin 0.3 mg/dL (0.15-1.2) 05/02/23 06:58 AST 14 U/L (0-40) 05/02/23 06:58 ALT 12 U/L (0-41) 05/02/23 06:58 Alkaline Phosphatase 91 U/L (40-130) 05/02/23 06:58 Troponin T Baseline 71 ng/L (0-15) H 05/02/23 06:58 Troponin T 120 Minute 80.77 ng/L (0-15) H 05/02/23 08:51 Delta Troponin T 9.77 ABS# (0-10) 05/02/23 08:51 Total Protein 5.6 g/dL (6.6-8.7) L 05/02/23 06:58 Albumin 3.1 g/dL (3.5-5.2) L 05/02/23 06:58 Globulin 2.5 g/dL (1.3-4.6) 05/02/23 06:58 SARS-CoV-2 Ag (Rapid) negative (Negative) 05/02/23 09:17 All radiology interpretation(s) finalized by discharge Discharge Plan Discharge Patient Disposition: Home Clinical Impression: Atypical chest pain, ESRD (end stage renal disease) Condition: Stable Prescriptions: No Action aspirin 81 mg tablet,delayed release (DR/EC) 81 mg PO QAM Eliquis 2.5 mg tablet 2.5 mg PO BID sevelamer carbonate 800 mg tablet 800 mg PO TID (DME) Dexcom G7 Mechanical Project Engineer Misc See Rx Instructions .Route Qty: 1 0RF Rx Instructions: As directed hydrocodone-acetaminophen 7.5-325 mg tablet 1 tab PO Q6H PRN (Reason: Pain) fluoxetine [Prozac] 40 mg capsule 40 mg PO DAILY Qty: 30 2RF Rx Instructions: start after 1 month on 20 mg. bupropion HCl [Wellbutrin XL] 300 mg tablet extended release 24 hr 300 mg PO QAM Qty: 30 2RF buspirone 5 mg tablet 5 mg PO TID Qty: 90 2RF atorvastatin 40 mg tablet 40 mg PO QAM Qty: 90 2RF (DME) Dexcom G7 Sensor Device See Rx Instructions .ROUTE .COMPLEX Qty: 6 0RF Dose Instruction: CHANGE every 10 DAYS Rx Instructions: CHANGE every 10 DAYS levothyroxine 88 mcg tablet 88 mcg PO QAM Tresiba FlexTouch U-200 200 unit/mL (3 mL) insulin pen 56 unit SUBCUT BEDTIME gabapentin 100 mg Capsule 100 mg PO BID Qty: 180 0RF bumetanide 2 mg tablet See Rx Instructions .ROUTE .COMPLEX Rx Instructions: 2mg (1 tab)po qam and 4mg (2 tabs)in the evening Trulicity 1.5 mg/0.5 mL pen injector 1.5 mg SUBCUT Q7D Rx Instructions: on saturday tizanidine 2 mg Tablet 2 mg PO BID PRN (Reason: Muscle Spasm) promethazine 25 mg tablet 25 mg PO Q6H PRN (Reason: Nausea) (DME) Dexcom G7 Mechanical Project Engineer Misc MISCELLANEOUS RenaPlex-D 800 mcg-12.5 mg -2,000 unit tablet 1 tab PO QPM Tylenol Ex Str Rapid Release 500 mg Tablet 1,000 mg PO Q6H PRN (Reason: Pain) Benadryl Allergy 25 mg Tablet 50 mg PO DAILY PRN (Reason: Allergy Symptoms) Nitrostat 0.4 mg Tablet, Sublingual 0.4 mg SUBLINGUAL Q5M PRN (Reason: Chest Pain) Rx Instructions: do not exceed 3 doses per episode Tylenol PM Extra Strength 25-500 mg Tablet 2 tab PO BEDTIME PRN (Reason: Sleep) amoxicillin-pot clavulanate 875-125 mg tablet 1 tab PO DAILY Rx Instructions: for 10 days (rx filled 04/25/23) Humalog KwikPen Insulin 100 unit/mL insulin pen See Rx Instructions .ROUTE .COMPLEX Rx Instructions: sliding scale subcutaneously twice a day trazodone 100 mg tablet 300 mg PO BEDTIME Prozac 20 mg capsule 20 mg PO QAM ranolazine 500 mg tablet extended release 12 hr 500 mg PO BID Discharge Orders: Discharge ED (Routine); Ordered 05/02/23 Ordered By: Timo Mckoy Referrals: Kp Montanez, [Primary Care Provider] - Discharge Diet: Usual diet Discharge Activity: Resume usual activity Patient Instructions: Opioid Safety, Pain Management Activity Restrictions/Additional Instructions: Thank you for choosing [facility] for your healthcare needs today. Please realize this is an emergency room and that we are providing you with a medical screening exam and this may not be complete and all inclusive of all the testing and or work up that you may need to determine your ailment or severity of your illness. It is very important that you follow up as instructed or that you return to the Emergency Department should you have concerns or if your condition changes or worsens in any way. You are seen today for complaint of shortness of breath chest discomfort. Your cardiac enzymes and EKG unremarkable. Your oxygen sats are normal on your usual 3 L per nasal cannula. Recommend we discharge and have you follow-up with your dialysis as scheduled today. Coding Level of Care Code ED Compounding And Finishing Supervisor for Aaron Irene
[2023-05-02 07:37] LABS: Alanine Aminotransferase 12 U/L (0-41); Albumin Level 3.1 g/dL (3.5-5.2); Alkaline Phosphatase 91 U/L (40-130); Anion Gap 14.5 (5-19); Aspartate Amino Transferase 14 U/L (0-40); Blood Urea Nitrogen 38 mg/dL (6-20); Calcium 7.8 mg/dL (8.5-10.5); Carbon Dioxide 26 mmol/L (22-29); Chloride 103 mmol/L (98-107); Globulin 2.5 g/dL (1.3-4.6); Glomerular Filtration Rate 21.9 mL/min (90-130); Glucose 188 mg/dL (65-115); Osmolality Calculated 304 mOsm/kg (285-295); Potassium 3.5 mmol/L (3.5-5.1); Sodium 140 mmol/L (136-145); Total Bilirubin 0.3 mg/dL (0.15-1.2); Total Protein 5.6 g/dL (6.6-8.7)
[2023-05-02] MEDS: hyDRALAzine 20 mg/mL INJ 1 mL 10 MG IVP (07:41)
--- NOTE | 2023-05-02 08:19 | PC.PHAR ---
pt states he has home health with [facility] [phone] states will fax med list-pt states he knows his medications-pt verified medications states he increased his bumetanide 2mg take 2mg qam and 4mg po qpm rx filled 04/19/23 30d/s 2mg bid-pt states he is still taking levothyroxine 88mcg daily ext shows last filled 10/19/22 90d/s-pt states he hasnt taken renvela 800mg tid for a month ext shows last filled 01/15/23 90d/s-pt states he is decreasing his trazodone states he is taking 300mg hs rx filled for 400mg hs prn 04/15/23 30d/s
[2023-05-02 08:26] LABS: Troponin(5th) Baseline 71 ng/L (0-15)
[2023-05-02] MEDS: lidocaine 2% viscous 15 ML, aluminum-mag hydrox-simethicon 30 ML, sucralfate oral liq 1 GM PO (08:44)
[2023-05-02] MEDS: acetaminophen 325 mg Tablet 650 MG PO (08:46)
[2023-05-02] MEDS: labetalol 5 mg/mL SDV 20mL 10 MG IVP (09:09)
[2023-05-02 09:25] LABS: Troponin 5 2HR 80.77 ng/L (0-15); Troponin 5 2HR Delta 9.77 ABS# (0-10)
[2023-05-02 09:44] LABS: SARS Covid-2 Antigen negative (Negative)
== END 2023-05-02 10:00 | disposition home or self-care (01) ==
PROVIDERS: Emergency Provider Family Medicine; PCP Internal Medicine
DX: R07.89 Other chest pain (principal); E11.22 Type 2 diabetes mellitus with diabetic chronic kidney disease; I13.2 Hypertensive heart and chronic kidney disease with heart failure and with stage 5 chronic kidney disease, or end stage renal disease; I50.22 Chronic systolic (congestive) heart failure; N18.6 End stage renal disease; I25.10 Atherosclerotic heart disease of native coronary artery without angina pectoris; I25.5 Ischemic cardiomyopathy; E78.5 Hyperlipidemia, unspecified; I25.2 Old myocardial infarction; Z99.2 Dependence on renal dialysis; Z11.52 Encounter for screening for COVID-19; Z79.01 Long term (current) use of anticoagulants; Z79.82 Long term (current) use of aspirin; Z79.85 Long-term (current) use of injectable non-insulin antidiabetic drugs; Z79.4 Long term (current) use of insulin
CPT/HCPCS: 71045; 80053; 84484; 85025; 87426; 93005; 96374; 96375; 99285; J0360; J2060; J3490

== ENCOUNTER → 2023-05-14 09:44 | Outpatient (BNVA) | payer MEDICARE, MEDICAID, SELFPAY | PROVIDERS: PCP Internal Medicine; Visit Provider Internal Medicine | DX: R60.1 Generalized edema (principal); E11.42 Type 2 diabetes mellitus with diabetic polyneuropathy; E03.9 Hypothyroidism, unspecified; E78.5 Hyperlipidemia, unspecified; I12.0 Hypertensive chronic kidney disease with stage 5 chronic kidney disease or end stage renal disease; E11.22 Type 2 diabetes mellitus with diabetic chronic kidney disease; N18.6 End stage renal disease; Z79.4 Long term (current) use of insulin; Z79.890 Hormone replacement therapy | CPT/HCPCS: 99214 ==

== ENCOUNTER 2023-05-18 07:38 | Observation (INO) | payer MEDICARE, MEDICAID, SELFPAY ==
[2023-05-18] VITALS (57 sets, daily range): BP systolic 147–164; BP diastolic 67–88; PULSE 75–88; RESP 13–31; TEMP 36.5–36.9; O2SAT 88–98; BMI 41.9
--- NOTE | 2023-05-18 07:49 | ED_ITS ---
HPI - Chest Pain 2 General: Chief Complaint: Chest Pain Stated Complaint: CHEST PAIN Time Seen by Provider: 05/18/23 07:49 Source: patient Mode of arrival: ambulatory History of Present Illness: 52-year-old male with end-stage renal di vinnie on hemodialysis history of coronary artery disease presents with complaint of chest pain that began at rest. She had a brief episode last night and this morning. He took 4 aspirin and 3 sublingual nitroglycerin 5 minutes apart he did have some improvement in the chest discomfort. He was seen 2 weeks ago and had a stent at [facility] in [place] per his report. Patient had a previous normal Lexiscan sestamibi stress test in April 2022 and an angiogram in December 2020 that showed stents but no active disease. He has a history of ischemic cardiomyopathy with an ejection fraction of 36%. He is due for dialysis today. MD complaint: chest pain Pertinent past history: coronary artery disease Onset (ago): hour(s) Timing of current episode: episodic Onset: during rest Pain location: left chest Pain radiation: left arm, back and neck Severity: moderate Quality: tightness and aching Relieving factors: nitroglycerin Associated symptoms: Deny abdominal pain, diaphoresis, dyspnea, fever(s), leg edema, nausea, palpitations, sense of impending doom, syncope or vomiting Treatment prior to arrival: aspirin and nitroglycerin Review of Systems 2 Const: Denies: fever(s), chills or diaphoresis Card: Reports: chest pain; Denies: palpitations, edema or syncope Resp: Denies: dyspnea GI: Denies: abdominal pain, nausea or vomiting : Denies: dysuria, urinary frequency or urinary urgency Musc: Denies: neck pain or back pain Skin/Breast: Denies: rash PFSH ED 2 PFSH: Medical History ESRD (end stage renal disease) Uremic encephalopathy Generalized anxiety disorder ESRD (end stage renal disease) D-dimer, elevated Acute on chronic congestive heart failure History of pulmonary embolism Diabetes Acute kidney injury superimposed on CKD GERD (gastroesophageal reflux disease) Alcohol use disorder, moderate, in sustained remission Major depressive disorder, recurrent severe without psychotic features DVT (deep venous thrombosis) (~03/2020) Proximal left subclavian, basilic and brachial veins, started eliquis this stay, felt present prior to admission Chronic kidney disease -baseline Cr appears to be around 1.5 Chronic systolic heart failure Atherosclerotic heart disease of [place] coronary artery with other forms of angina pectoris hx of CAD with prior stenting of proximal LAD, LCx, RCA Ischemic cardiomyopathy Onychodystrophy Chronic anticoagulation Eliquis Osteoarthritis of spine Hypothyroidism Hypertension Hyperlipidemia Diabetes A1c-7.6 (08/2019) Depression Anemia Foot drop, left H/O acute myocardial infarction H/O deep venous thrombosis developed compartment syndrome Surgical History Peritoneal dialysis catheter in situ (06/15/21) History of appendectomy 1995 History of excision of mass 06/08/2019: Subcutaneous mass on back History of removal of Port-a-Cath Port-A-Cath in place H/O vasectomy Hx of cholecystectomy History of coronary artery stent placement 5x H/O skin graft History of inguinal hernia repair, bilateral 2000 H/O removal of testicle left H/O colonoscopy (11/14/20) 08/2015 H/O esophagogastroduodenoscopy (11/14/20) 08/2015 Family History Grandfather Cancer skin cancer Parkinson disease Brother Hypertension Father Heart disease Mother Hypertension Stroke Aneurysm Grandmother Aneurysm Other Crohn's disease Denies family history of Anesthesia complication Bleeding disorder Social History Smoking and tobacco/nicotine status: never used tobacco/nicotine Second hand smoke exposure: No Alcohol intake: former Year of sobriety/quit date alcohol: 2015 Former alcohol use details: Only holidays Substance/Drug Use: never Lives independently: Yes Household members: significant other Marital status: Single Current occupational status: disabled Physical Exam 2 Const: COMMON NORMALS: no acute distress GENERAL APPEARANCE: cooperative and comfortable ORIENTATION/CONSCIOUSNESS: Yes awake, Yes oriented to person, Yes oriented to place and Yes oriented to time HENMT: COMMON NORMALS: normocephalic, atraumatic and hearing grossly normal bilaterally HEAD & SCALP: normocephalic and atraumatic Resp: COMMON NORMALS: normal respiratory effort, No retractions, No use of accessory muscles and clear to auscultation bilaterally AUSCULTATION: clear to auscultation bilaterally Cardio: COMMON NORMALS: regular rate, regular rhythm and No murmurs present (Cardio) RATE: regular rate RHYTHM: regular rhythm GI: COMMON NORMALS: Soft to palpation and No hepatosplenomegaly present A USCULTATION: Yes normoactive bowel sounds PALPATION: Yes Soft to palpation, No Tenderness to palpation present (GI), No Guarding due to palpation present (GI) and Yes No hepatosplenomegaly present Extremity: COMMON NORMALS: normal to inspection, capillary refill normal, no clubbing, cyanosis or edema, no calf tenderness and no pedal edema Neuro: SENSORIUM/ORIENTATION: Yes oriented to person, Yes oriented to place and Yes oriented to time Skin: COMMON NORMALS: no rashes or lesions noted GENERAL SKIN EXAM: no rashes or lesions noted Course 2 Vital Signs: Vital signs: Vital Signs Temperature 98.5 F 05/18/23 07:40 Pulse Rate 77 05/18/23 11:50 Respiratory Rate 15 05/18/23 11:50 Blood Pressure 155/70 05/18/23 11:50 Pulse Oximetry 95 05/18/23 11:50 Oxygen Delivery Me thod Room Air, Nasal C annula 05/18/23 12:22 MDM - Chest Pain Medical Decision Making Old records received from [facility] in [place] shows that the patient had a 70- 80% in-stent stenosis that was treated with a drug-eluting stent in the proximal LAD on 05/03/2023. His other coronary arteries were listed as patent. He was prescribed clopidogrel at discharge. No acute EKG changes. He is still having chest pain despite Nitropaste and morphine. As above reviewed angiogram done 2 weeks ago. Discussed with Dr. Frank he will see the patient and make recommendations on further treatment. Troponins trending negative for now no acute ST changes noted on the EKG admit to hospitalist service Medical Records I reviewed the patient's medical records. Lab Data I reviewed the patient's lab results. 05/18/23 08:06 05/18/23 08:06 Radiology Impressions Chest X-Ray 05/18/23 11:25 IMPRESSION: Mild bibasilar subsegmental atelectasis. Laboratory Results WBC 11.50 10^3/uL (3.29-11.43) H 05/18/23 08:06 RBC 2.97 10^6/uL (3.85-5.65) L 05/18/23 08:06 Hgb 9.90 g/dL (11.27-16.99) L 05/18/23 08:06 Hct 29.8 % (37-53) L 05/18/23 08:06 MCV 100.3 fl (82-101) 05/18/23 08:06 MCH 33.3 pg (27-33) H 05/18/23 08:06 MCHC 33.2 g/dL (30-55) 05/18/23 08:06 RDW 14.3 % (12.1-15.1) 05/18/23 08:06 Plt Count 255 10^3/cmm (157-399) 05/18/23 08:06 MPV 9.4 fL (7.4-10.4) 05/18/23 08:06 Neut % (Auto) 77.6 % 05/18/23 08:06 Lymph % (Auto) 11.7 % 05/18/23 08:06 [place] % (Auto) 7.8 % 05/18/23 08:06 Eos % (Auto) 1.8 % 05/18/23 08:06 Baso % (Auto) 0.6 % 05/18/23 08:06 Neut # (Auto) 8.91 10^3/uL (1.8-7.7) H 05/18/23 08:06 Lymph # (Auto) 1.4 10^3/uL (0.8-4.8) 05/18/23 08:06 [place] # (Auto) 0.9 10^3/uL (0.2-0.9) 05/18/23 08:06 Eos # (Auto) 0.2 10^3/uL (0.0-0.8) 05/18/23 08:06 Baso # (Auto) 0.1 10^3/uL (0.0-0.1) 05/18/23 08:06 Nucleated RBC % (auto) 0 % 05/18/23 08:06 Nucleated RBCs # 0.0 /100WBC 05/18/23 08:06 Sodium 143 mmol/L (136-145) 05/18/23 08:06 Potassium 4.2 mmol/L (3.5-5.1) 05/18/23 08:06 Chloride 104 mmol/L (98-107) 05/18/23 08:06 Carbon Dioxide 24 mmol/L (22-29) 05/18/23 08:06 Anion Gap 19.2 (5-19) H 05/18/23 08:06 BUN 29 mg/dL (6-20) H 05/18/23 08:06 Creatinine 3.3 mg/dL (0.7-1.2) H 05/18/23 08:06 GFR Calculation 19.6 mL/min (90-130) L 05/18/23 08:06 Glucose 152 mg/dL (65-115) H 05/18/23 08:06 Calculated Osmolality 305 mOsm/kg (285-295) H 05/18/23 08:06 Calcium 8.7 mg/dL (8.5-10.5) 05/18/23 08:06 Magnesium 1.8 mg/dL (1.7-2.3) 05/18/23 08:06 Total Bilirubin 0.4 mg/dL (0.15-1.2) 05/18/23 08:06 AST 15 U/L (0-40) 05/18/23 08:06 ALT 13 U/L (0-41) 05/18/23 08:06 Alkaline Phosphatase 91 U/L (40-130) 05/18/23 08:06 Troponin T Baseline 68 ng/L (0-15) H 05/18/23 08:06 Troponin T 120 Minute 63.00 ng/L (0-15) H 05/18/23 10:12 Delta Troponin T -5.00 ABS# (0-10) L 05/18/23 10:12 Total Protein 5.5 g/dL (6.6-8.7) L 05/18/23 08:06 Albumin 3.5 g/dL (3.5-5.2) 05/18/23 08:06 Globulin 2.0 g/dL (1.3-4.6) 05/18/23 08:06 Lipase 22 U/L (13-60) 05/18/23 08:06 Urine Color Yellow (Yellow) 05/18/23 08:35 Urine Appearance Clear (CLEAR) 05/18/23 08:35 Urine pH 6 (5-7) 05/18/23 08:35 Ur Specific [place] 1.015 (1.005-1.030) 05/18/23 08:35 Urine Protein 3+ (Negative) H 05/18/23 08:35 Urine Glucose (UA) 1+ (Normal) H 05/18/23 08:35 Urine Ketones Negative (Negative) 05/18/23 08:35 Urine Blood Neg (Negative) 05/18/23 08:35 Urine Nitrate Negative (Negative) 05/18/23 08:35 Urine Bilirubin Neg (Negative) 05/18/23 08:35 Urine Urobilinogen Norm mg/dL (Negative) 05/18/23 08:35 Ur Leukocyte Esterase Negative (Negative) 05/18/23 08:35 Urine RBC Rare /hpf (0-2) 05/18/23 08:35 Urine WBC Rare /hpf (0-5) 05/18/23 08:35 Ur Squamous Epith Cells Rare /hpf (0-5) 05/18/23 08:35 Amorphous Sediment Not Reportable 05/18/23 08:35 Urine Bacteria None /hpf (NONE) 05/18/23 08:35 All radiology interpretation(s) finalized by discharge Discharge Plan Discharge Patient Disposition: Admitted As Inpatient Admit Provider: Andrew Gonzalez Clinical Impression: Angina at rest, ESRD (end stage renal disease) Condition: Stable Coding Level of Care Code ED Patient Service Representative for Aaron Irene
--- NOTE | 2023-05-18 07:51 | ECG_ITS ---
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 Measurements Intervals [place] Rate: 85 P: 46 WA: 192 QRS: 5 QRSD: 109 T: 62 QT: 363 QTc: 433 Interpretive Statements SINUS RHYTHM POSSIBLE ANTERIOR MYOCARDIAL INFARCTION , OF INDETERMINATE AGE [30 ms Q WAVE IN V3/V4, OR R < 0.2 mV IN V4] Compared to ECG 05/02/2023 06:47:44 No significant changes Electronically Signed On 05-18-2023 13:31:31 MARKETING EXECUTIVE by Garrison Mckinney M.D. [id number]
[2023-05-18 08:21] LABS: Basophils # 0.1 10^3/uL (0.0-0.1); Basophils % 0.6 %; Eosinophils # 0.2 10^3/uL (0.0-0.8); Eosinophils % 1.8 %; Hematocrit 29.8 % (37-53); Lymphocytes # 1.4 10^3/uL (0.8-4.8); Lymphocytes % 11.7 %; Mean Corpuscular HGB Conc 33.2 g/dL (30-55); Mean Corpuscular Hemoglobin 33.3 pg (27-33); Mean Corpuscular Volume 100.3 fl (82-101); Mean Platelet Volume 9.4 fL (7.4-10.4); Monocytes # 0.9 10^3/uL (0.2-0.9); Monocytes % 7.8 %; Neutrophils # 8.91 10^3/uL (1.8-7.7); Neutrophils % 77.6 %; Nucleated Red Blood Cells % 0 %; Platelet Count 255 10^3/cmm (157-399); Red Blood Count 2.97 10^6/uL (3.85-5.65); Red Cell Distribution Width 14.3 % (12.1-15.1)
[2023-05-18 08:33] LABS: Troponin(5th) Baseline 68 ng/L (0-15)
[2023-05-18] MEDS: nitroglycerin 1 gm/inch oint Pkt 1 INCH TOPICAL (08:36)
[2023-05-18 09:00] LABS: Add Urine Microscopic? YES; Bilirubin Urine Neg (Negative); Blood Urine Neg (Negative); Glucose Urine UA 1+ (Normal); Ketones Urine Negative (Negative); Leukocyte Esterase Urine Negative (Negative); Nitrate Urine Negative (Negative); Protein Urine 3+ (Negative); RBC Urine RARE /hpf (0-2); Specific Gravity, Urine 1.015 (1.005-1.030); Squamous Epithelial Cell Urine RARE /hpf (0-5); Urine Appearance Clear (CLEAR); Urine Color Yellow (Yellow); Urobilinogen Urine Norm (Negative); WBC Urine RARE /hpf (0-5); pH Urine 6 (5-7)
[2023-05-18 09:07] LABS: Albumin Level 3.5 g/dL (3.5-5.2); Alkaline Phosphatase 91 U/L (40-130); Chloride 104 mmol/L (98-107); Potassium 4.2 mmol/L (3.5-5.1); Sodium 143 mmol/L (136-145)
[2023-05-18] MEDS: morphine 4 mg/mL SDV 1 mL 2 MG IVP ×2 (09:36→10:24)
[2023-05-18] MEDS: diphenhydrAMINE 50 mg/mL SDV 1mL 25 MG IVP (09:36)
--- NOTE | 2023-05-18 09:51 | ECG_ITS ---
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 Measurements Intervals [place] Rate: 81 P: 12 AR: 184 QRS: -1 QRSD: 110 T: 50 QT: 380 QTc: 441 Interpretive Statements SINUS RHYTHM POSSIBLE ANTERIOR MYOCARDIAL INFARCTION , OF INDETERMINATE AGE [30 ms Q WAVE IN V3/V4, OR R < 0.2 mV IN V4] Compared to ECG 05/18/2023 07:47:56 No significant changes Electronically Signed On 05-18-2023 13:33:49 DIE FILER by Garrison Mckinney M.D. [id number]
[2023-05-18 10:00] LABS: Anion Gap 19.2 (5-19); Carbon Dioxide 24 mmol/L (22-29)
[2023-05-18 10:01] LABS: Alanine Aminotransferase 13 U/L (0-41); Aspartate Amino Transferase 15 U/L (0-40); Blood Urea Nitrogen 29 mg/dL (6-20); Calcium 8.7 mg/dL (8.5-10.5); Glomerular Filtration Rate 19.6 mL/min (90-130); Glucose 152 mg/dL (65-115); Magnesium 1.8 mg/dL (1.7-2.3); Osmolality Calculated 305 mOsm/kg (285-295); Total Bilirubin 0.4 mg/dL (0.15-1.2); Total Protein 5.5 g/dL (6.6-8.7)
[2023-05-18 10:02] LABS: Lipase 22 U/L (13-60)
--- NOTE | 2023-05-18 11:25 | XRR_ITS ---
PROCEDURE INFORMATION: Exam: XR Chest Exam date and time: 05/18/2023 11:49 AM Age: 52 years old Clinical indication: Dyspnea TECHNIQUE: Imaging protocol: Radiologic exam of the chest. Views: 1 view. COMPARISON: CR XR chest 1V portable [id number] 05/02/2023 7:00 AM FINDINGS: Tubes, catheters and devices: Central line tip mid SVC. Lungs: Mild bibasilar subsegmental atelectasis. No infiltrate. Pleural spaces: Unremarkable. No pleural effusion. No pneumothorax. Heart/Mediastinum: Unremarkable. No cardiomegaly. Bones/joints: Previous median sternotomy. XR/XR chest 1V portable [id number] IMPRESSION: Mild bibasilar subsegmental atelectasis.
--- NOTE | 2023-05-18 11:49 | PC.NURSE ---
pt report given to DARRELL North in [facility] by this nurse. Mary Anne had no further questions.
--- NOTE | 2023-05-18 13:33 | PM.HP ---
Providers/Chief Complaint Admitting Physician: Andrew Gonzalez Primary Care Provider: Kp Montanez DO Chief Complaint: CHEST PAIN History of Present Illness Pleasant 52-year-old gentleman accompanied by his , with past medical history of ESRD, hemodialysis, CAD, DVT, on anticoagulation with Eliquis, congestive heart failure, other medical problems coronary angiography and PCI of high-grade lesion in proximal LAD at [facility] in [place] after having chest pain, has been on triple therapy since then with continued reduced dose Eliquis 2.5 mg twice daily, as well as on aspirin and Plavix, returns to the hospital due to recurrence of left-sided chest pain radiating to his left arm, left side neck and jaw. Initially without improvement to nitroglycerin, subsequently with improvement with nitroglycerin paste, added morphine. He reports having mild nausea. Some bloating of his abdomen. No lower extremity edema. Chest x-ray with mild bibasilar subsegmental atelectasis. Moderate troponin abnormality, 68, 63 at 2 hours, 63 at 6 hours. EKG with some T wave flattening in 1, aVL, V4-6. But also 2 3 and aVF. Review of Systems Const: Denies: fever(s), chills, body aches or malaise ENMT: Denies: throat pain Card: Reports: chest pain; Denies: edema, pre-syncope or dyspnea on exertion Resp: Denies: dyspnea, productive cough, change in phlegm color or hemoptysis GI: Reports: bloating; Denies: abdominal pain, nausea, vomiting, diarrhea, constipation, hematochezia or melena : Denies: flank pain, difficulty urinating, urinary frequency or hematuria Musc: Denies: back pain, joint swelling or joint redness Skin/Breast: Denies: rash or new lesions Medications/Allergies Home Medications Medication Instructions Recorded Confirmed Last Taken Type aspirin 81 mg tablet,delayed 81 mg PO QAM 06/01/19 05/18/23 05/18/23 History release levothyroxine 88 mcg tablet 88 mcg PO QAM 02/09/21 05/18/23 05/17/23 History apixaban 2.5 mg tablet (Eliquis) 2.5 mg PO BID 09/14/21 05/18/23 05/17/23 History insulin degludec 200 unit/mL (3 50 unit SUBCUT BEDTIME 12/11/21 05/18/23 05/17/23 History mL) subcutaneous pen (Tresiba FlexTouch U-200 insulin) sevelamer carbonate 800 mg tablet 800 mg PO TID PRN UNKNOWN 06/18/22 05/18/23 1 Month Ago History ~04/02/23 not taken for a juanjo bumetanide 2 mg tablet See Rx Instructions .Route .COMPLEX 08/16/22 05/18/23 03/15/23 History blood-glucose meter,continuous #1 ea 10/19/22 05/18/23 03/15/23 Rx (Dexcom G7 Concrete Pourer) atorvastatin 40 mg tablet 40 mg PO QAM #90 tabs 10/25/22 05/18/23 05/17/23 Rx hydrocodone 7.5 mg-acetaminophen 1 tab PO Q6H PRN Pain 11/23/22 05/18/23 03/15/23 History 325 mg tablet blood-glucose meter,continuous 02/27/23 05/18/23 03/15/23 History (Dexcom G7 Concrete Pourer) promethazine 25 mg tablet 25 mg PO Q6H PRN Nausea 02/27/23 05/18/23 03/15/23 History tizanidine 2 mg tablet 2 mg PO BID PRN Muscle Spasm 02/27/23 05/18/23 03/15/23 History vit B,C-folic ac 800 mcg-zinc 12.5 1 tab PO QPM 02/27/23 05/18/23 05/17/23 History mg-selen-D3 2,000 unit-vit E tablet (RenaPlex-D) buspirone 5 mg tablet 5 mg PO TID #90 tabs 04/18/23 05/18/23 05/17/23 Rx diphenhydramine HCl 25 mg tablet 50 mg PO DAILY PRN Allergy Symptoms 05/02/23 05/18/23 Unknown History (Benadryl Allergy) insulin lispro 100 unit/mL See Rx Instructions .Route .COMPLEX 05/02/23 05/18/23 05/17/23 History subcutaneous pen (Humalog KwikPen (U-100) Insulin) nitroglycerin 0.4 mg sublingual 0.4 mg sublingual Q5M PRN Chest 05/02/23 05/18/23 05/18/23 History tablet (Nitrostat) Pain ranolazine 500 mg tablet,extended 500 mg PO BID 05/02/23 05/18/23 05/17/23 History release,12 hr trazodone 100 mg tablet 300 mg PO BEDTIME insomnia 05/02/23 05/18/23 05/17/23 History blood-glucose sensor (Dexcom G7 #9 ea 05/14/23 05/18/23 Unknown Rx Sensor device) carvedilol 3.125 mg tablet 3.125 mg PO DAILY 05/14/23 05/18/23 05/17/23 History dulaglutide 3 mg/0.5 mL 3 mg (0.5 mL) SUBCUT .weekly 30 05/14/23 05/18/23 Unknown Rx subcutaneous pen injector days #2 mL (Trulicity) bupropion HCl 150 mg 24 hr tablet, 150 mg PO QAM 05/18/23 05/18/23 05/17/23 History extended release clopidogrel 75 mg tablet 75 mg PO DAILY 05/18/23 05/18/23 05/17/23 History fluoxetine 10 mg capsule 10 mg PO DAILY 05/18/23 05/18/23 05/17/23 History gabapentin 300 mg capsule 300 mg PO BID 05/18/23 05/18/23 05/17/23 History lorazepam 1 mg tablet 1 mg PO Q8H 05/18/23 05/18/23 05/17/23 History losartan 50 mg tablet 25 mg PO DAILY 05/18/23 05/18/23 05/17/23 History Allergies Allergy/AdvReac Type Severity Reaction Status Date / Time Iodinated Contrast Media Allergy Severe ALGY-Difficulty Verified 05/18/23 07:47 Breathing iodine Allergy Severe ALGY-Difficulty Verified 05/18/23 07:47 Breathing metoclopramide [From Reglan] Allergy Severe ALGY-Difficulty Verified 05/18/23 07:47 Breathing nalbuphine [From Nubain] Allergy Severe ADR-Diarrhe Verified 05/18/23 07:47 a naproxen [From Naprosyn] Allergy Severe ADR-Vomitin Verified 05/18/23 07:47 g Sulfa (Sulfonamide Allergy Severe ALGY-Difficulty Verified 05/18/23 07:47 Antibiotics) Breathing ketorolac Allergy Intermediate ADR-Nausea Verified 05/18/23 07:47 ondansetron [From Zofran] Allergy Intermediate ADR-Abdominal Verified 05/18/23 07:47 Pain prochlorperazine Allergy Intermediate ADR-Irritab Verified 05/18/23 07:47 [From Compazine] le codeine AdvReac Severe ALGY-Anaphy Verified 05/18/23 07:47 laxis haloperidol [From Haldol] AdvReac Intermediate ADR-Irritab Verified 05/18/23 07:47 le PFSH Acute PFSH: Medical History ESRD (end stage renal disease) Uremic encephalopathy Generalized anxiety disorder ESRD (end stage renal disease) D-dimer, elevated Acute on chronic congestive heart failure History of pulmonary embolism Diabetes Acute kidney injury superimposed on CKD GERD (gastroesophageal reflux disease) Alcohol use disorder, moderate, in sustained remission Major depressive disorder, recurrent severe without psychotic features DVT (deep venous thrombosis) (~03/2020) Proximal left subclavian, basilic and brachial veins, started eliquis this stay, felt present prior to admission Chronic kidney disease -baseline Cr appears to be around 1.5 Chronic systolic heart failure Atherosclerotic heart disease of [place] coronary artery with other forms of angina pectoris hx of CAD with prior stenting of proximal LAD, LCx, RCA Ischemic cardiomyopathy Onychodystrophy Chronic anticoagulation Eliquis Osteoarthritis of spine Hypothyroidism Hypertension Hyperlipidemia Diabetes A1c-7.6 (08/2019) Depression Anemia Foot drop, left H/O acute myocardial infarction H/O deep venous thrombosis developed compartment syndrome Surgical History Peritoneal dialysis catheter in situ (06/15/21) History of appendectomy 1995 History of excision of mass 06/08/2019: Subcutaneous mass on back History of removal of Port-a-Cath Port-A-Cath in place H/O vasectomy Hx of cholecystectomy History of coronary artery stent placement 5x H/O skin graft History of inguinal hernia repair, bilateral 2000 H/O removal of testicle left H/O colonoscopy (11/14/20) 08/2015 H/O esophagogastroduodenoscopy (11/14/20) 08/2015 Family History Grandfather Cancer skin cancer Parkinson disease Brother Hypertension Father Heart disease Mother Hypertension Stroke Aneurysm Grandmother Aneurysm Other Crohn's disease Denies family history of Anesthesia complication Bleeding disorder Social History Smoking and tobacco/nicotine status: never used tobacco/nicotine Second hand smoke exposure: No Alcohol intake: former Year of sobriety/quit date alcohol: 2016 Former alcohol use details: Only holidays Substance/Drug Use: never Lives independently: Yes Household members: significant other Marital status: Single Current occupational status: disabled Vitals/I&O/Wt Last Vital Signs Temp 98.5 F 05/18/23 07:40 Pulse 77 05/18/23 11:50 Resp 15 05/18/23 11:50 BP 155/70 05/18/23 11:50 Pulse Ox 95 05/18/23 11:50 O2 Del Method Room Air, Nasal Cannula 05/18/23 12:22 Weight last 48 hrs Weight 117.934 kg Weight 117.934 kg Physical Exam Narrative: Accompanied by his . Const: COMMON NORMALS: patient oriented x3 and alert GENERAL APPEARANCE: cooperative ORIENTATION/CONSCIOUSNESS: Yes awake HENMT: COMMON NORMALS: oropharynx normal Neck/C-Spine: COMMON NORMALS: no JVD Resp: COMMON NORMALS: normal respiratory effort and clear to auscultation bilaterally AUSCULTATION: clear to auscultation bilaterally Cardio: COMMON NORMALS: no JVD, regular rhythm, S1 normal heart sound present, S2 normal heart sound present and No murmurs present (Cardio) RHYTHM: regular rhythm HEART SOUNDS: S1 normal heart sound present and S2 normal heart sound present GI: COMMON NORMALS: Normal to inspection, nondistended, normoactive bowel sounds present, Soft to palpation and non-tender PALPATION: Yes Soft to palpation OTHER: Some abdominal distention. Extremity: COMMON NORMALS: no joint enlargement and no pedal edema Neuro: COMMON NORMALS: patient oriented x3 and moves all extremities SENSORIUM/ORIENTATION: Yes alert Skin: COMMON NORMALS: no rashes or lesions noted GENERAL SKIN EXAM: no rashes or lesions noted Data 05/18/23 08:06 05/18/23 08:06 A&P Assessment and plan (1) Chest pain: Reports chest pain similar to episode 2 weeks ago prior to his angiogram and PCI of high-grade lesion in proximal LAD. Left-sided chest pain radiating to the left arm, left side neck, left side jaw. Possible unstable angina. Moderate troponin ovation with flat trend. EKG with some T wave flattening. Discussed with ER physician, ER documentation reviewed, reviewed vitals, CBC, CMP, UA, chest x-ray. Monitor on telemetry due to elevated risk of arrhythmia. Recheck chemistry. Appreciate cardiology consultation. As per discussion with recent coronary angiogram, recurrence of similar pain as during his ischemic episode, recommendation and plans are made for additional assessment by coronary angiography. N.p.o. after midnight. In the meantime anticoagulation transitions to heparin drip as per discussion with cardiology. Continue aspirin, Plavix, beta-zaira, statin. With iodine allergy cardiology will be adding premedication for him as well. Risk of hyperglycemia with steroid, continue long-acting insulin, will also add moderate sliding scale. Consistent carbohydrate diet until midnight. Qualifiers: Chest pain type: unspecified Qualified Code(s): R07.9 - Chest pain, unspecified Plan Possible component of decompensation of systolic and diastolic CHF, some abdominal bloating. Continue diuretics, hemodialysis. No peripheral edema. Reassess volume status. Monitor MARYLOU, electrolytes at risk of deficiency, repeat chemistry. Weights. History of DVT: Continue anticoagulation. Heparin drip at this time. At risk of bleeding. Monitor PTTs. Repeat CBC. ESRD: On hemodialysis. Nephrology consultation appreciated. Anemia Depression Hypothyroidism Hypertension Diabetes: Accu-Cheks requested, continue long-acting insulin, add sliding scale. Consistent carbohydrate diet. Other medical problems Attestations Medical Necessity Statement*: Place in observation for additional assessment management of chest pain with recent ischemic heart disease and PCI, concern for possible unstable angina, in a gentleman with multiple comorbidities as above. Diagnoses Chest pain R07.9 Chest pain type: unspecified
--- NOTE | 2023-05-18 14:17 | PC.NURSE ---
received in to room 108 from er via [employer] at 1205.pt is alert and oriented x 4.sr on monitor.denies cp at present.oriented to room environment.instructed to notify staff for any chest pain,sob,or for any concerns at all.pt verb understanding of instructions
[2023-05-18 14:26] LABS: Troponin 5 6HR 62.96 ng/L (0-15)
[2023-05-18 14:27] LABS: Troponin 5 6HR Delta -5.04 ng/L (0-12)
--- NOTE | 2023-05-18 14:42 | PM.CONSULT ---
Providers/Reason For Consult Consulting Physician/Specialty*: Garrison Mckinney MD/ Cardiology Reason for Consult*: Worsening angina Requesting Physician: Dr Mckoy Attending Physician: Andrew Gonzalez Primary Care Provider: Kp Montanez DO History of Present Illness History of Present Illness Rei Queen II is a 52 year old male with past medical history of DVT, end-stage renal disease on dialysis, CAD with recent LAD stent who has presented to hospital with severe substernal chest pain. He says it started within the last 24 hours. Multiple episodes of chest discomfort. He has taken several nitro. His blood pressure is elevated. Initial troponin is elevated at 68 but has not trended up significantly. EKG shows nonspecific ST-T wave changes. This is minimal exertion is making his chest hurt. Review of Systems Const: Denies: fever(s), chills or diaphoresis Card: Reports: chest pain; Denies: palpitations, edema or syncope Resp: Denies: dyspnea GI: Denies: abdominal pain, nausea or vomiting : Denies: dysuria, urinary frequency or urinary urgency Musc: Denies: neck pain or back pain Skin/Breast: Denies: rash Medications/Allergies Home Medications Medication Instructions Recorded Confirmed Last Taken Type aspirin 81 mg tablet,delayed 81 mg PO QAM 06/01/19 05/18/23 05/18/23 History release levothyroxine 88 mcg tablet 88 mcg PO QAM 02/09/21 05/18/23 05/17/23 History apixaban 2.5 mg tablet (Eliquis) 2.5 mg PO BID 09/14/21 05/18/23 05/17/23 History insulin degludec 200 unit/mL (3 50 unit SUBCUT BEDTIME 12/11/21 05/18/23 05/17/23 History mL) subcutaneous pen (Tresiba FlexTouch U-200 insulin) sevelamer carbonate 800 mg tablet 800 mg PO TID PRN UNKNOWN 06/18/22 05/18/23 1 Month Ago History ~04/02/23 not taken for a juanjo bumetanide 2 mg tablet See Rx Instructions .Route .COMPLEX 08/16/22 05/18/23 03/15/23 History blood-glucose meter,continuous #1 ea 10/19/22 05/18/23 03/15/23 Rx (Dexcom G7 [employer]) atorvastatin 40 mg tablet 40 mg PO QAM #90 tabs 10/25/22 05/18/23 05/17/23 Rx hydrocodone 7.5 mg-acetaminophen 1 tab PO Q6H PRN Pain 11/23/22 05/18/23 03/15/23 History 325 mg tablet blood-glucose meter,continuous 02/27/23 05/18/23 03/15/23 History (Dexcom G7 [employer]) promethazine 25 mg tablet 25 mg PO Q6H PRN Nausea 02/27/23 05/18/23 03/15/23 History tizanidine 2 mg tablet 2 mg PO BID PRN Muscle Spasm 02/27/23 05/18/23 03/15/23 History vit B,C-folic ac 800 mcg-zinc 12.5 1 tab PO QPM 02/27/23 05/18/23 05/17/23 History mg-selen-D3 2,000 unit-vit E tablet (RenaPlex-D) buspirone 5 mg tablet 5 mg PO TID #90 tabs 04/18/23 05/18/23 05/17/23 Rx diphenhydramine HCl 25 mg tablet 50 mg PO DAILY PRN Allergy Symptoms 05/02/23 05/18/23 Unknown History (Benadryl Allergy) insulin lispro 100 unit/mL See Rx Instructions .Route .COMPLEX 05/02/23 05/18/23 05/17/23 History subcutaneous pen (Humalog KwikPen (U-100) Insulin) nitroglycerin 0.4 mg sublingual 0.4 mg sublingual Q5M PRN Chest 05/02/23 05/18/23 05/18/23 History tablet (Nitrostat) Pain ranolazine 500 mg tablet,extended 500 mg PO BID 05/02/23 05/18/23 05/17/23 History release,12 hr trazodone 100 mg tablet 300 mg PO BEDTIME insomnia 05/02/23 05/18/23 05/17/23 History blood-glucose sensor (Dexcom G7 #9 ea 05/14/23 05/18/23 Unknown Rx Sensor device) carvedilol 3.125 mg tablet 3.125 mg PO DAILY 05/14/23 05/18/23 05/17/23 History dulaglutide 3 mg/0.5 mL 3 mg (0.5 mL) SUBCUT .weekly 30 05/14/23 05/18/23 Unknown Rx subcutaneous pen injector days #2 mL (Trulicity) bupropion HCl 150 mg 24 hr tablet, 150 mg PO QAM 05/18/23 05/18/23 05/17/23 History extended release clopidogrel 75 mg tablet 75 mg PO DAILY 05/18/23 05/18/23 05/17/23 History fluoxetine 10 mg capsule 10 mg PO DAILY 05/18/23 05/18/23 05/17/23 History gabapentin 300 mg capsule 300 mg PO BID 05/18/23 05/18/23 05/17/23 History lorazepam 1 mg tablet 1 mg PO Q8H 05/18/23 05/18/23 05/17/23 History losartan 50 mg tablet 25 mg PO DAILY 05/18/23 05/18/23 05/17/23 History Allergies Allergy/AdvReac Type Severity Reaction Status Date / Time Iodinated Contrast Media Allergy Severe ALGY-Difficulty Verified 05/18/23 07:47 Breathing iodine Allergy Severe ALGY-Difficulty Verified 05/18/23 07:47 Breathing metoclopramide [From Reglan] Allergy Severe ALGY-Difficulty Verified 05/18/23 07:47 Breathing nalbuphine [From Nubain] Allergy Severe ADR-Diarrhe Verified 05/18/23 07:47 a naproxen [From Naprosyn] Allergy Severe ADR-Vomitin Verified 05/18/23 07:47 g Sulfa (Sulfonamide Allergy Severe ALGY-Difficulty Verified 05/18/23 07:47 Antibiotics) Breathing ketorolac Allergy Intermediate ADR-Nausea Verified 05/18/23 07:47 ondansetron [From Zofran] Allergy Intermediate ADR-Abdominal Verified 05/18/23 07:47 Pain prochlorperazine Allergy Intermediate ADR-Irritab Verified 05/18/23 07:47 [From Compazine] le codeine AdvReac Severe ALGY-Anaphy Verified 05/18/23 07:47 laxis haloperidol [From Haldol] AdvReac Intermediate ADR-Irritab Verified 05/18/23 07:47 le PFSH Acute PFSH: Medical History ESRD (end stage renal disease) Uremic encephalopathy Generalized anxiety disorder ESRD (end stage renal disease) D-dimer, elevated Acute on chronic congestive heart failure History of pulmonary embolism Diabetes Acute kidney injury superimposed on CKD GERD (gastroesophageal reflux disease) Alcohol use disorder, moderate, in sustained remission Major depressive disorder, recurrent severe without psychotic features DVT (deep venous thrombosis) (~03/2020) Proximal left subclavian, basilic and brachial veins, started eliquis this stay, felt present prior to admission Chronic kidney disease -baseline Cr appears to be around 1.5 Chronic systolic heart failure Atherosclerotic heart disease of [place] coronary artery with other forms of angina pectoris hx of CAD with prior stenting of proximal LAD, LCx, RCA Ischemic cardiomyopathy Onychodystrophy Chronic anticoagulation Eliquis Osteoarthritis of spine Hypothyroidism Hypertension Hyperlipidemia Diabetes A1c-7.6 (08/2019) Depression Anemia Foot drop, left H/O acute myocardial infarction H/O deep venous thrombosis developed compartment syndrome Surgical History Peritoneal dialysis catheter in situ (06/15/21) History of appendectomy 1995 History of excision of mass 06/08/2019: Subcutaneous mass on back History of removal of Port-a-Cath Port-A-Cath in place H/O vasectomy Hx of cholecystectomy History of coronary artery stent placement 5x H/O skin graft History of inguinal hernia repair, bilateral 2000 H/O removal of testicle left H/O colonoscopy (11/14/20) 08/2015 H/O esophagogastroduodenoscopy (11/14/20) 08/2015 Family History Grandfather Cancer skin cancer Parkinson disease Brother Hypertension Father Heart disease Mother Hypertension Stroke Aneurysm Grandmother Aneurysm Other Crohn's disease Denies family history of Anesthesia complication Bleeding disorder Social History Smoking and tobacco/nicotine status: never used tobacco/nicotine Second hand smoke exposure: No Alcohol intake: former Year of sobriety/quit date alcohol: 2015 Former alcohol use details: Only holidays Substance/Drug Use: never Lives independently: Yes Household members: significant other Marital status: Single Current occupational status: disabled Vitals/I&O/Wt Last Vital Signs Temp 98.5 F 05/18/23 07:40 Pulse 77 05/18/23 11:50 Resp 15 05/18/23 11:50 BP 155/70 05/18/23 11:50 Pulse Ox 95 05/18/23 11:50 O2 Del Method Room Air, Nasal Cannula 05/18/23 12:22 Weight last 48 hrs Weight 260 lb Weight 260 lb Physical Exam Narrative: GENERAL: Patient is alert, awake and oriented x3. [] NECK: No jugular vein distension. [] HEENT: No cyanosis. No icterus. No pallor. [] HEART: Regular S1 and S2. No murmur, rub or gallop. [] LUNGS: Clear to auscultate bilaterally. [] CENTRAL NERVOUS SYSTEM: Grossly nonfocal. [] EXTREMITIES: Lower extremities with 1+ edema bilaterally. Data 05/19/23 04:29 05/19/23 04:29 A&P Assessment and plan (1) Worsening angina: (2) Hyperlipidemia: (3) Chronic anticoagulation: (4) Hypertension: (5) Elevated troponin: Plan Patient has presented with worsening anginal symptoms. His description is typical. Had a recent stent in LAD about 2 weeks ago at outside hospital. Multiple other stents as well. We will proceed with coronary angiography with possible percutaneous coronary intervention. Risks and benefits of the procedure have been discussed. He understands them and wants to proceed. Keep n.p.o. after midnight. He will need to be medicated for iodine allergy. Consult nephrology for dialysis tomorrow after the procedure. Continue aspirin and Plavix. Hold Eliquis. Will need to happen in the meantime. Thank you for involving us with care of this patient. We will continue to follow. Please call with questions. Consult Attestations Medical Necessity Statement: Care expected to cross 2 midnights. Coding Level of Care Code Acute Code for Chg Fwd Diagnoses Worsening angina I20.0 Hyperlipidemia E78.5 Chronic anticoagulation Z79.01 Hypertension I10 Elevated troponin R77.8
[2023-05-18] MEDS: heparin drip 25,000 UNIT/500 ML PREMIX 80.2 UNIT IV (15:09)
[2023-05-18] MEDS: HYDROcodone-acetaminophen 7.5-325 mg Tablet 1 TAB PO ×2 (15:10→21:10)
[2023-05-18] MEDS: BuSPIRONE 10 mg Tablet 5 MG PO ×2 (16:30→20:57)
[2023-05-18 16:42] LABS: Glucose Point of Care 75 mg/dL (70-110)
--- NOTE | 2023-05-18 17:04 | PC.NURSE ---
pt's accucheck 75.denies s/sxs hypoglycemia.pt has a regular coke that his spouse brought in....and was given a sandwich.instructed to notify staff for any s/sxs hypoglycemia.pt verb understanding of instruction
--- NOTE | 2023-05-18 17:31 | ECG_ITS ---
[facility] Test Date: 2023-05-18 Pat Name: Rei Queen Department: Room: 108 Gender: Male Publications Manager: : 1970 Requested By: Timo Hart Order Number: [id number] Becky MD: Garrison Mckinney M.D. Measurements Intervals Duncan Rate: 78 P: 10 MD: 179 QRS: -1 QRSD: 105 T: 51 QT: 398 QTc: 455 Interpretive Statements SINUS RHYTHM POSSIBLE ANTERIOR MYOCARDIAL INFARCTION , OF INDETERMINATE AGE [30 ms Q WAVE IN V3/V4, OR R < 0.2 mV IN V4] Compared to ECG 05/18/2023 09:45:09 No significant changes Electronically Signed On 05-19-2023 10:24:07 SEPARATOR OPERATOR by Garrison Mckinney M.D. [id number]
[2023-05-18] MEDS: predniSONE 20 mg Tablet 40 MG PO ×2 (17:38→20:56)
[2023-05-18] MEDS: bumetanide 1 mg Tablet 4 MG PO (17:39)
[2023-05-18] MEDS: gabapentin 300 mg Capsule PO (17:39)
[2023-05-18] MEDS: ranolazine (12HR) 500 mg Tablet PO (17:39)
--- NOTE | 2023-05-18 18:13 | PC.NURSE ---
pt refused evening dose of bumex.[facility] doctor in [place] dc'd it after his cath.dr jordan notified.
--- NOTE | 2023-05-18 20:08 | P.CONIM_ITS ---
Providers/Reason For Consult 2 Consulting Physician/Specialty*: kommana/Nephrology Reason for Consult*: ESRD Attending Physician: Andrew Gonzalez Primary Care Provider: Kp Montanez DO History of Present Illness History of Present Illness Rei Queen II is a 52 year old male ESRD, hemodialysis, CAD, DVT, on anticoagulation with Eliquis, congestive heart failure presented with chest pain. Chest x-ray with mild bibasilar subsegmental atelectasis. Troponin elevated. Last HD was on . on RA. Labs reviewed Review of Systems 2 Narrative: Other ROS negative Medications/Allergies Home Medications Medication Instructions Recorded Confirmed Last Taken Type aspirin 81 mg tablet,delayed 81 mg PO QAM 06/01/19 05/18/23 05/18/23 History release levothyroxine 88 mcg tablet 88 mcg PO QAM 02/09/21 05/18/23 05/17/23 History apixaban 2.5 mg tablet (Eliquis) 2.5 mg PO BID 09/14/21 05/18/23 05/17/23 History insulin degludec 200 unit/mL (3 50 unit SUBCUT BEDTIME 12/11/21 05/18/23 05/17/23 History mL) subcutaneous pen (Tresiba FlexTouch U-200 insulin) sevelamer carbonate 800 mg tablet 800 mg PO TID PRN UNKNOWN 06/18/22 05/18/23 1 Month Ago History ~04/02/23 not taken for a juanjo bumetanide 2 mg tablet See Rx Instructions .Route .COMPLEX 08/16/22 05/18/23 03/15/23 History blood-glucose meter,continuous #1 ea 10/19/22 05/18/23 03/15/23 Rx (Dexcom G7 [employer]) atorvastatin 40 mg tablet 40 mg PO QAM #90 tabs 10/25/22 05/18/23 05/17/23 Rx hydrocodone 7.5 mg-acetaminophen 1 tab PO Q6H PRN Pain 11/23/22 05/18/23 03/15/23 History 325 mg tablet blood-glucose meter,continuous 02/27/23 05/18/23 03/15/23 History (Dexcom G7 [employer]) promethazine 25 mg tablet 25 mg PO Q6H PRN Nausea 02/27/23 05/18/23 03/15/23 History tizanidine 2 mg tablet 2 mg PO BID PRN Muscle Spasm 02/27/23 05/18/23 03/15/23 History vit B,C-folic ac 800 mcg-zinc 12.5 1 tab PO QPM 02/27/23 05/18/23 05/17/23 History mg-selen-D3 2,000 unit-vit E tablet (RenaPlex-D) buspirone 5 mg tablet 5 mg PO TID #90 tabs 04/18/23 05/18/23 05/17/23 Rx diphenhydramine HCl 25 mg tablet 50 mg PO DAILY PRN Allergy Symptoms 05/02/23 05/18/23 Unknown History (Benadryl Allergy) insulin lispro 100 unit/mL See Rx Instructions .Route .COMPLEX 05/02/23 05/18/23 05/17/23 History subcutaneous pen (Humalog KwikPen (U-100) Insulin) nitroglycerin 0.4 mg sublingual 0.4 mg sublingual Q5M PRN Chest 05/02/23 05/18/23 05/18/23 History tablet (Nitrostat) Pain ranolazine 500 mg tablet,extended 500 mg PO BID 05/02/23 05/18/23 05/17/23 History release,12 hr trazodone 100 mg tablet 300 mg PO BEDTIME insomnia 05/02/23 05/18/23 05/17/23 History blood-glucose sensor (Dexcom G7 #9 ea 05/14/23 05/18/23 Unknown Rx Sensor device) carvedilol 3.125 mg tablet 3.125 mg PO DAILY 05/14/23 05/18/23 05/17/23 History dulaglutide 3 mg/0.5 mL 3 mg (0.5 mL) SUBCUT .weekly 30 05/14/23 05/18/23 Unknown Rx subcutaneous pen injector days #2 mL (Trulicity) bupropion HCl 150 mg 24 hr tablet, 150 mg PO QAM 05/18/23 05/18/23 05/17/23 History extended release clopidogrel 75 mg tablet 75 mg PO DAILY 05/18/23 05/18/23 05/17/23 History fluoxetine 10 mg capsule 10 mg PO DAILY 05/18/23 05/18/23 05/17/23 History gabapentin 300 mg capsule 300 mg PO BID 05/18/23 05/18/23 05/17/23 History lorazepam 1 mg tablet 1 mg PO Q8H 05/18/23 05/18/23 05/17/23 History losartan 50 mg tablet 25 mg PO DAILY 05/18/23 05/18/23 05/17/23 History Allergies Allergy/AdvReac Type Severity Reaction Status Date / Time Iodinated Contrast Media Allergy Severe ALGY-Difficulty Verified 05/18/23 07:47 Breathing iodine Allergy Severe ALGY-Difficulty Verified 05/18/23 07:47 Breathing metoclopramide [From Reglan] Allergy Severe ALGY-Difficulty Verified 05/18/23 07:47 Breathing nalbuphine [From Nubain] Allergy Severe ADR-Diarrhe Verified 05/18/23 07:47 a naproxen [From Naprosyn] Allergy Severe ADR-Vomitin Verified 05/18/23 07:47 g Sulfa (Sulfonamide Allergy Severe ALGY-Difficulty Verified 05/18/23 07:47 Antibiotics) Breathing ketorolac Allergy Intermediate ADR-Nausea Verified 05/18/23 07:47 ondansetron [From Zofran] Allergy Intermediate ADR-Abdominal Verified 05/18/23 07:47 Pain prochlorperazine Allergy Intermediate ADR-Irritab Verified 05/18/23 07:47 [From Compazine] le codeine AdvReac Severe ALGY-Anaphy Verified 05/18/23 07:47 laxis haloperidol [From Haldol] AdvReac Intermediate ADR-Irritab Verified 05/18/23 07:47 le Current Medications Generic Name Dose Route Start Last Admin Trade Name Freq PRN Reason Stop Dose Admin Hydrocodone Bitart/Acetaminophen 1 tab 05/18/23 14:25 05/18/23 15:10 Hydrocodone-Acetaminophen 7.5-325 Mg Tablet PO 1 tab Q6H PRN Administration Pain Bumetanide 4 mg 05/18/23 18:00 05/18/23 17:39 Bumetanide 1 Mg Tablet PO 4 mg QPM RANDY Administration Buspirone HCl 5 mg 05/18/23 15:00 05/18/23 16:30 Buspirone 10 Mg Tablet PO 5 mg TID RANDY Administration Gabapentin 300 mg 05/18/23 18:00 05/18/23 17:39 Gabapentin 300 Mg Capsule PO 300 mg BID RANDY Administration Heparin Sodium/Sodium Chloride 25,000 unit in 500 mls @ 0 mls/hr 05/18/23 14:30 05/18/23 15:09 Heparin Drip IV 34 unit/kg/hr .Q0M RANDY 80.2 mls/hr Administration Protocol Per Protocol Insulin Human Lispro 0 unit 05/18/23 18:00 05/18/23 17:28 Insulin Lispro 100 Unit/1 Ml SUBCUT Not Given WM&BEDTIME RANDY Protocol Prednisone 40 mg 05/18/23 17:00 05/18/23 17:38 Prednisone 20 Mg Tablet PO 40 mg QID RANDY Administration Ranolazine 500 mg 05/18/23 18:00 05/18/23 17:39 Ranolazine (12hr) 500 Mg Tablet PO 500 mg BID RANDY Administration PFSH Acute 2 PFSH: Medical History ESRD (end stage renal disease) Uremic encephalopathy Generalized anxiety disorder ESRD (end stage renal disease) D-dimer, elevated Acute on chronic congestive heart failure History of pulmonary embolism Diabetes Acute kidney injury superimposed on CKD GERD (gastroesophageal reflux disease) Alcohol use disorder, moderate, in sustained remission Major depressive disorder, recurrent severe without psychotic features DVT (deep venous thrombosis) (~03/2020) Proximal left subclavian, basilic and brachial veins, started eliquis this stay, felt present prior to admission Chronic kidney disease -baseline Cr appears to be around 1.5 Chronic systolic heart failure Atherosclerotic heart disease of [place] coronary artery with other forms of angina pectoris hx of CAD with prior stenting of proximal LAD, LCx, RCA Ischemic cardiomyopathy Onychodystrophy Chronic anticoagulation Eliquis Osteoarthritis of spine Hypothyroidism Hypertension Hyperlipidemia Diabetes A1c-7.6 (08/2019) Depression Anemia Foot drop, left H/O acute myocardial infarction H/O deep venous thrombosis developed compartment syndrome Surgical History Peritoneal dialysis catheter in situ (06/15/21) History of appendectomy 1995 History of excision of mass 06/08/2019: Subcutaneous mass on back History of removal of Port-a-Cath Port-A-Cath in place H/O vasectomy Hx of cholecystectomy History of coronary artery stent placement 5x H/O skin graft History of inguinal hernia repair, bilateral 1999 H/O removal of testicle left H/O colonoscopy (11/14/20) 08/2015 H/O esophagogastroduodenoscopy (11/14/20) 08/2015 Family History Grandfather Cancer skin cancer Parkinson disease Brother Hypertension Father Heart disease Mother Hypertension Stroke Aneurysm Grandmother Aneurysm Other Crohn's disease Denies family history of Anesthesia complication Bleeding disorder Social History Smoking and tobacco/nicotine status: never used tobacco/nicotine Second hand smoke exposure: No Alcohol intake: former Year of sobriety/quit date alcohol: 2015 Former alcohol use details: Only holidays Substance/Drug Use: never Lives independently: Yes Household members: significant other Marital status: Single Current occupational status: disabled Vitals/I&O/Wt Last Vital Signs Temp 98.5 F 05/18/23 07:40 Pulse 77 05/18/23 16:00 Resp 15 05/18/23 16:00 BP 157/82 05/18/23 16:00 Pulse Ox 97 05/18/23 16:00 O2 Del Method Room Air 05/18/23 16:00 05/18/23 05/18/23 05/18/23 06:59 14:59 22:59 Intake Total 360 / 360 Balance 360 / 360 Weight last 48 hrs Weight 117.934 kg Weight 117.934 kg Physical Exam 2 Narrative: awake ,alert no distress no edema Data 05/18/23 08:06 05/18/23 08:06 A&P Assessment and plan (1) ESRD (end stage renal disease): Plan 1. ESRD : on HD per TTS schedule. Hold off HD today due to possibility of ACS . plan for HD in AM 2.Chest pain : Trending trops , cardiology following 3.HTN : Restart home meds 4. Anemia : will order JENNIFER Consult Attestations 2 Medical Necessity Statement: per medicine Coding Level of Care Code Acute Code for Chg Fwd Diagnoses ESRD (end stage renal disease) N18.6
[2023-05-18 20:29] LABS: Glucose Point of Care 246 mg/dL (70-110)
[2023-05-18] MEDS: insulin glargine 100 units/1 mL 40 UNIT SUBCUT (20:55)
[2023-05-18] MEDS: trazodone 100 mg Tablet 300 MG PO (20:56)
[2023-05-18] MEDS: promethazine 25 mg Tablet PO (20:56)
[2023-05-18] MEDS: insulin lispro 100 unit/1 mL SUBCUT (20:56)
[2023-05-18 22:02] LABS: Partial Thromboplastin Time 145.6 SECONDS (23.9-36.7)
[2023-05-18] MEDS: heparin drip 25,000 UNIT/500 ML PREMIX 27 UNIT IV (22:41)
[2023-05-19] VITALS (9 sets, daily range): BP systolic 116–174; BP diastolic 65–98; PULSE 78–87; RESP 16–18; TEMP 36.4–36.6; O2SAT 90–95
[2023-05-19] MEDS: promethazine 25 mg Tablet PO (03:42)
[2023-05-19] MEDS: HYDROcodone-acetaminophen 7.5-325 mg Tablet 1 TAB PO (03:42)
[2023-05-19 04:36] LABS: Basophils % 0.2 %; Eosinophils % 0.1 %; Lymphocytes # 0.8 10^3/uL (0.8-4.8); Mean Corpuscular HGB Conc 33.2 g/dL (30-55); Mean Corpuscular Volume 99.4 fl (82-101); Mean Platelet Volume 9.5 fL (7.4-10.4); Monocytes # 0.1 10^3/uL (0.2-0.9); Monocytes % 1.2 %; Neutrophils # 8.03 10^3/uL (1.8-7.7); Neutrophils % 88.8 %; Nucleated Red Blood Cells % 0 %; Platelet Count 234 10^3/cmm (157-399); Red Blood Count 3.12 10^6/uL (3.85-5.65); Red Cell Distribution Width 14.1 % (12.1-15.1); White Blood Count 9.04 10^3/uL (3.29-11.43)
[2023-05-19 04:51] LABS: Potassium 4.6 mmol/L (3.5-5.1)
[2023-05-19 04:58] LABS: Chloride 99 mmol/L (98-107); Glucose 264 mg/dL (65-115); Sodium 136 mmol/L (136-145)
[2023-05-19 05:02] LABS: Partial Thromboplastin Time 114.1 SECONDS (23.9-36.7)
[2023-05-19] MEDS: sodium chloride 0.9% 1,000 ML 50 ML IV (05:14)
[2023-05-19] MEDS: atorvastatin 40 mg Tablet PO (05:14)
[2023-05-19] MEDS: levothyroxine 88 mcg Tablet PO (05:14)
[2023-05-19] MEDS: buPROPion XL (24 HR) 150 mg Tablet PO (05:14)
[2023-05-19] MEDS: aspirin 81 mg EC Tablet PO (05:15)
[2023-05-19] MEDS: predniSONE 20 mg Tablet 40 MG PO (05:15)
[2023-05-19 05:20] LABS: Blood Urea Nitrogen 37 mg/dL (6-20); Calcium 9.2 mg/dL (8.5-10.5); Glomerular Filtration Rate 19.6 mL/min (90-130); Osmolality Calculated 300 mOsm/kg (285-295)
[2023-05-19 05:21] LABS: Anion Gap 16.6 (5-19); Carbon Dioxide 25 mmol/L (22-29)
[2023-05-19] MEDS: heparin drip 25,000 UNIT/500 ML PREMIX 27 UNIT IV (05:21)
--- NOTE | 2023-05-19 07:13 | XACV_ITS ---
Exam Room: [facility] Ht: 168 cm Wt: 118 kg BSA: 2.40 m2 Gender: Male : 1970 Any Known Allergies: Other Exam Priority: Routine Indication(s): - Chest pain - Unstable angina Procedure(s): Procedure Description: Diagnostic procedure Procedure Description: Left Heart Catheterization Procedure Description: Miscellaneous Procedure Description: ACT Procedure Description: Coronary Angiography Procedure Description: Pressure Wire Diagnostic Cath Status: Urgent Diagnostic Findings * Left Main has no significant disease. * Left Anterior Descending has patent prior stents. * Circumflex has patent prior stent. OM 1 also has a patent prior stent. Has diffuse luminal irregularities . * Proximal Right Coronary Artery: mild 40% stenosis, MEGHANA: 3 flow. * Mid Right Coronary Artery: moderate 50% stenosis, MEGHANA: 3 flow. * Coronary angiography shows right dominance. Interventional Findings * Procedure detail: After diagnostic angiography, we decided to perform IFR of mid RCA. IV heparin was administered to maintain anticoagulation. 6 Trinidadian JR4 guide catheter was used to engage the RCA. After normalization, IFR wire was advanced into the distal vessel. iFR value of 0.96 was obtained that was nonischemic. At this time final angiogram was performed and patient left the Vocational Guidance Counselor in a stable condition. Conclusions 1. Moderate mid RCA stenosis s/p IFR 2. that is nonischemic. Medical therapy. Patent prior stents.. Recommendations * Aggressive medical therapy. * Outpatient cardiology follow up in 4 weeks. Interventional RX Recommendation: medical therapy and/or counseling Diagnostic RX Recommendation: medical therapy and/or counseling Anticoagulation: Heparin Clinical Evaluation EBL: 5mL-10mL Procedural Details Procedure Consent Obtained. Admit Source: Out Patient. Current Diagnosis : Unstable angina. Pre-Procedure Time Out. Identified patient by full name and date of as verbalized by the patient/guarantor. Does the consent match the physician's order: Yes. Accurate & Complete Informed Consent: Yes. Inpatient/Outpatient History & Physical on Chart: Yes. If H&P is completed, is and addenduem needed: Yes; If yes, is the addendum complete: Yes. Visualize and Verify Site with Patient/Guarantor: N/A. Relevant Radiology Images available: N/A. The risks, benefits, and alternatives of sedation and/or procedure were discussed by physician. The patient agrees to continue. Procedure started. [facility] Clinical Fraility Score: 3: Managing Well. Vocational Guidance Counselor Indications: Worsening Angina. Chest Pain Symptom Assessment: Typical Angina Symptoms. Cardiovascular Instability: No. Correct patient, site and procedure confirmed by cath team. Current diagnosis: Chest Pain. PERRLA. Strong, equal hand marketing finance specialist bilaterally. Lungs clear x 5 lobes. IV Site on Arrival: Left upper chest chase cath accessed prior to arrival. IV Fluids: 0.9% NaCl at KVO. 100 mL infused prior to laborer prestressed concrete. Pre Procedural Pulses: bilateral dorsalis pedis was Doppled. Pre Procedural Pulses: bilateral posterior tibial was Doppled. Pre Procedural Pulses: bilateral radial was 2+. Oxygen started at 3liters/min via nasal canula. bilateral groins was prepped with chloroprep then draped in the usual sterile fashion. Physician notified. Baseline sample Acquired. HR: 88 BPM. Patient received 3 doses of Predisone as prophylaxis for iodine allergy LEGAL BILLING CLERK today. Physician arrived. Patient's family unavailable. Equipment: 6F - Femoral. Heparinized Saline (2 units/mL), 1000 mL bag. Cardiac Cath Pack. ACIST Manifold Kit Model BT 2000. Kit, Micropuncture. Physician scrubbed in. Immediate Pre-Procedure Time Out. Correct Patient: Yes; Correct Procedure: Yes; Correct Site: Yes; Correct Patient Position: Yes; Correct Supplies: Yes; Dried Flammable Prep: Yes; Blood Products Available: N/A;. Lidocaine 1% infiltrated to the left groin. Arterial access obtained with micropuncture set using ultrasound. ACT drawn. Results 157 seconds. Therapeutic limits - pre-heparin administration 90-150 seconds and monitoring heparin during a vascular procedure >250 seconds. ACT drawn. Heparin shut off on CSU LEGAL BILLING CLERK to laborer prestressed concrete today. A 5 american JL4 catheter in over wire. Multiple views taken of left coronary artery. Catheter removed over the standard wire. A 5 american JR4 catheter in over wire. Multiple views taken of right coronary artery. Catheter removed over the standard wire. 6 american JR 4 guide catheter was inserted over the wire. Guide seated. IFR guidewire was advanced through the guide catheter to lesion in the mid RCA. ifr wire normalized with guide pressure proximal to lesion then advanced past the mid rca lesion. Measurements obtained. IFR spot 0.96 IFR pullback 0.98 Lesion Mid RCA. Angiography performed. IFR wire removed. ACT drawn. Results 245 seconds. Therapeutic limits - pre-heparin administration 90-150 seconds and monitoring heparin during a vascular procedure >250 seconds. Guide catheter removed over the wire. Physician review of films. A Left femoral angiogram was performed to determine safe placement of closure device. A Angio-Seal VIP ([facility]) was successful obtaining hemostatsis at the Left Femoral artery insertion site. Angioseal placed without complications. No signs or symptoms of hematoma noted. Sterile dressing applied per usual sterile fashion. EXP 09/26/2023 LOT # [id number]. Post Procedure: Pulses reassessed and unchanged. PERRLA. Strong, equal hand marketing finance specialist bilaterally. No VTE prophylaxis required. Medication waste: Heparin- 2000 units. Fentanyl- 25 mcg. Versed- 1 mg. Total IV fluids: 50 mL. Fluoro: 4:01. Contrast type used: Omnipaque 300 mg/mL, 150 mL bottle. [id number]. Post-op diagnosis: Moderate mid RCA stenosis; Post IFR evaluation. Complications: None. Estimated blood loss: 5mL-10mL. Responsiveness - Normal response to verbal stimuli; alert and oriented, PERRLA. Airway - Unaffected, no intervention required; spontaneous ventilation. Circulation: W/N/L, pulses unchanged. Nausea/Vomiting: No. Procedure completed. Patient transferred by bed to 1st floor. Vital chart was stopped. Access Site Site: Left Femoral artery Sheath Size: 6 Fr Hemostasis Method: Angio-Seal VIP ([facility]. Nasir) Hemostasis Success: Successful Procedure Medications Start: 7:54 AM Stop: 7:54 AM Medication: Benadryl Amount: 50 mg Route: I.V. Start: 7:57 AM Stop: 7:57 AM Medication: Versed Amount: 1 mg Route: I.V. Start: 7:57 AM Stop: 7:57 AM Medication: Fentanyl Amount: 50 mcg Route: I.V. Start: 8:17 AM Stop: 8:17 AM Medication: Heparin Amount: 4000 units Route: I.V. Start: 8:19 AM Stop: 8:19 AM Medication: Fentanyl Amount: 25 mcg Route: I.V. I, the attending physician, have reviewed and verified all procedure medications. Yes, all medications given per verbal order History/Risk Factors Hypertension: Yes Dyslipidemia: Yes Peripheral Arterial Disease (PAD): No Myocardial Infarction (SC): No Obesity: Yes Renal Disease: Yes Tobacco Use: Never Dialysis: Current Prior Interventions PCI: Yes Valve Surgery: No Date of PCI: 11/15/2016 Report Signatures Finalized by Garrison Mckinney MD on 05/20/2023 03:30 PM
[2023-05-19 07:42] LABS: Glucose Point of Care 251 mg/dL (70-110)
--- NOTE | 2023-05-19 07:54 | W.PM.OPSUD ---
Surgery/Procedure H&P Update DATE OF PROCEDURE: May 19, 2023 DATE H&P PERFORMED: 05/18/23 H&P UPDATE INFORMATION: I have reviewed H&P completed within last 30 days, I have examined patient prior to procedure and No changes to prior documentation PREOP DIAGNOSIS: Worsening angina PRIMARY INDICATION FOR PROCEDURE: Worsening angina PLANNED PROCEDURE: Operation Date: 05/19/23 08:00 Proposed Procedures p Cardiac Catheterization(Left) - Garrison Mckinney M.D Possible percutaneous coronary intervention PATIENT REASSESSED PRIOR TO SEDATION, WITH NO CHANGE NOTED: Yes PHYSICAL EXAM: alert, oriented x 3, clear to auscultation bilaterally and regular rate & rhythm AIRWAY EVAL/ANESTHESIA PLAN: normal airway, ASA III, Local Anesthesia, Risks, benefits & alternatives of sedation and/or procedure discussed and Patient agrees to continue as planned ADDITIONAL INFORMATION: Moderate sedation
--- NOTE | 2023-05-19 08:44 | PM.PN ---
Subjective Subjective: Patient's coronary angiogram revealed patent prior stents. RCA had moderate stenosis status post IFR that was negative for ischemia. Vitals/I&O/Wt Last Vital Signs Temp 97.9 F 05/19/23 07:06 Pulse 87 05/19/23 07:06 Resp 16 05/19/23 07:06 BP 156/98 05/19/23 07:06 Pulse Ox 92 05/19/23 07:06 O2 Del Method Room Air 05/19/23 07:06 05/18/23 05/19/23 05/19/23 22:59 06:59 14:59 Intake Total 860 / 860 726.75 / 1586.75 Output Total 600 / 600 400 / 400 Balance 860 / 860 126.75 / 986.75 -400 / -400 Weight last 48 hrs Weight 260 lb Weight 260 lb Physical Exam Narrative: GENERAL: Patient is alert, awake and oriented x3. [] NECK: No jugular vein distension. [] HEENT: No cyanosis. No icterus. No pallor. [] HEART: Regular S1 and S2. No murmur, rub or gallop. [] LUNGS: Clear to auscultate bilaterally. [] CENTRAL NERVOUS SYSTEM: Grossly nonfocal. [] EXTREMITIES: Lower extremities with 1+ edema bilaterally. Data 05/19/23 04:29 05/19/23 04:29 A&P Assessment and plan (1) Worsening angina: (2) Hyperlipidemia: (3) Chronic anticoagulation: (4) Hypertension: (5) Elevated troponin: Plan Coronary angiography performed that showed moderate RCA stenosis s/p IFR that is negative for ischemia. Continue medical therapy. Thank you for involving us with care of this patient. Patient is stable to be discharged from cardiology standpoint. Please call with questions. Attestations Medical Necessity Statement*: Care expected to cross 2 midnights. Coding Level of Care Code Acute Code for [facility] Fwd Diagnoses Worsening angina I20.0 Hyperlipidemia E78.5 Chronic anticoagulation Z79.01 Hypertension I10 Elevated troponin R77.8
[2023-05-19] MEDS: carvedilol 3.125 mg Tablet PO (08:56)
[2023-05-19] MEDS: bumetanide 1 mg Tablet 2 MG PO (08:56)
[2023-05-19] MEDS: clopidogrel 75 mg Tablet PO (08:56)
[2023-05-19] MEDS: aspirin 325 mg Tablet PO (08:56)
[2023-05-19] MEDS: fluoxetine 10 mg Capsule PO (08:56)
[2023-05-19] MEDS: losartan 50 mg Tablet 25 MG PO (08:56)
[2023-05-19] MEDS: ranolazine (12HR) 500 mg Tablet PO (08:56)
[2023-05-19] MEDS: pantoprazole DR 40 mg Tablet PO (08:57)
[2023-05-19] MEDS: insulin lispro 100 unit/1 mL SUBCUT (08:57)
[2023-05-19] MEDS: gabapentin 300 mg Capsule PO (08:57)
[2023-05-19] MEDS: BuSPIRONE 10 mg Tablet 5 MG PO (09:01)
[2023-05-19 09:48] LABS: Hepatitis B Core AB, Total Non-Reactive (Nonreactive)
--- NOTE | 2023-05-19 10:17 | PC.NURSE ---
to cardiac laboratory coordinator at 0745 via bed.
--- NOTE | 2023-05-19 10:18 | PC.NURSE ---
received from cardiac airport maintenance laborer via bed at 0845.report received.pt is drowsy but easily awakened.denies pain at present.sr on monitor.left groin with dressing dry and intact.(angioseal done for closure in airport maintenance laborer).pt instructed in activity restrictions s/p femoral artery procedure...and instructed to notify staff for any bleeding,pain,numbness,or for any concerns at all.pt verb understanding of insructions
[2023-05-19 10:43] LABS: Hepatitis B Surface AB > 1000.0 (11.5-1000); Hepatitis B Surface Antigen Non-Reactive (Nonreactive)
[2023-05-19 12:11] LABS: Glucose Point of Care 222 mg/dL (70-110)
--- NOTE | 2023-05-19 12:25 | PC.NURSE ---
to dialysis via bed at this time
[2023-05-19 12:47] LABS: Partial Thromboplastin Time 71.7 SECONDS (23.9-36.7)
--- NOTE | 2023-05-19 17:52 | PM.DCS ---
Discharge Providers Date of Admission: 05/18/23 11:23 Date of Discharge: May 19, 2023 Attending Provider at Admission: Andrew Gonzalez Attending Provider at Discharge: Andrew Gonzalez Primary Care Provider: Kp Montanez DO Diagnoses at Discharge Discharge Diagnosis (1) Worsening angina: Status: Acute (2) Hyperlipidemia: Status: Acute (3) Chronic anticoagulation: Status: Acute Permanent problem details: Eliquis (4) Hypertension: Status: Acute (5) Elevated troponin: Status: Acute Reason for Visit Reason for Visit: CHEST PAIN Brief History: Pleasant 52-year-old gentleman accompanied by his , with past medical history of ESRD, hemodialysis, CAD, DVT, on anticoagulation with Eliquis, congestive heart failure, other medical problems coronary angiography and PCI of high-grade lesion in proximal LAD at [facility] in [place] after having chest pain, has been on triple therapy since then with continued reduced dose Eliquis 2.5 mg twice daily, as well as on aspirin and Plavix, returns to the hospital due to recurrence of left-sided chest pain radiating to his left arm, left side neck and jaw. Initially without improvement to nitroglycerin, subsequently with improvement with nitroglycerin paste, added morphine. He reports having mild nausea. Some bloating of his abdomen. No lower extremity edema. Chest x-ray with mild bibasilar subsegmental atelectasis. Moderate troponin abnormality, 68, 63 at 2 hours, 63 at 6 hours. EKG with some T wave flattening in 1, aVL, V4-6. But also 2 3 and aVF. Hospital Course Hospital Course Pain improved with nitroglycerin, morphine. He was monitored on telemetry, had troponin EKG series completed with moderate elevation noted in troponins. His symptoms appear to at least in part coincide with elevation in blood pressure. He was assessed by cardiology and given recent history with PCI and stenting of proximal LAD 2 weeks ago currently with chest pain, troponin abnormality underwent additional assessment with coronary angiography. The stent was patent. He was noted to have another 40% lesion in RCA, but this 1 did not require intervention by FFR. He is doing well, undergoing dialysis tonight. He continues on his current medications including dual antiplatelets, anticoagulants, ranolazine, beta-zaira, statin, Imdur is added for nondialysis days. As per discussion with cardiology he is okay to return home with outpatient follow-up. Discussing with him he knows to seek medical attention in case of any worsening or concerning symptoms given presence of coronary artery disease and his comorbidities. Physical Exam Narrative: Undergoing dialysis. Reports he is doing well, no further symptoms. Happy to return home. Const: COMMON NORMALS: patient oriented x3 and alert GENERAL APPEARANCE: cooperative ORIENTATION/CONSCIOUSNESS: Yes awake HENMT: COMMON NORMALS: oropharynx normal Neck/C-Spine: COMMON NORMALS: no JVD Resp: COMMON NORMALS: normal respiratory effort and clear to auscultation bilaterally AUSCULTATION: clear to auscultation bilaterally Cardio: COMMON NORMALS: no JVD, regular rhythm, S1 normal heart sound present, S2 normal heart sound present and No murmurs present (Cardio) RHYTHM: regular rhythm HEART SOUNDS: S1 normal heart sound present and S2 normal heart sound present GI: COMMON NORMALS: Normal to inspection, nondistended, normoactive bowel sounds present, Soft to palpation and non-tender PALPATION: Yes Soft to palpation Extremity: COMMON NORMALS: no joint enlargement and no pedal edema Neuro: COMMON NORMALS: patient oriented x3 and moves all extremities SENSORIUM/ORIENTATION: Yes alert Skin: COMMON NORMALS: no rashes or lesions noted GENERAL SKIN EXAM: no rashes or lesions noted Discharge Data Studies Completed and Pending Completed Studies During Hospitalization Category Date Time Status XR chest 1V portable [id number] Stat Exams 05/18/23 11:25 Completed Pending at discharge Category Date Time Status ADMINISTRATIVE RESOURCES ASSOCIATE request for service Routine Exams 05/19/23 07:13 Ordered Basic Metabolic Panel AM LABS Lab 05/20/23 04:00 Ordered Basic Metabolic Panel AM LABS Lab 05/21/23 04:00 Ordered Complete Blood Count w/Auto AM LABS Lab 05/20/23 04:00 Ordered Complete Blood Count w/Auto AM LABS Lab 05/21/23 04:00 Ordered Platelet Count Q2D Lab 05/20/23 04:00 Ordered Platelet Count Q2D Lab 05/22/23 04:00 Ordered Radiology Impressions Chest X-Ray 05/18/23 11:25 IMPRESSION: Mild bibasilar subsegmental atelectasis. Laboratory Results WBC 9.04 10^3/uL (3.29-11.43) 05/19/23 04:29 RBC 3.12 10^6/uL (3.85-5.65) L 05/19/23 04:29 Hgb 10.30 g/dL (11.27-16.99) L 05/19/23 04:29 Hct 31.0 % (37-53) L 05/19/23 04:29 MCV 99.4 fl (82-101) 05/19/23 04:29 MCH 33.0 pg (27-33) 05/19/23 04:29 MCHC 33.2 g/dL (30-55) 05/19/23 04:29 RDW 14.1 % (12.1-15.1) 05/19/23 04:29 Plt Count 234 10^3/cmm (157-399) 05/19/23 04:29 MPV 9.5 fL (7.4-10.4) 05/19/23 04:29 Neut % (Auto) 88.8 % 05/19/23 04:29 Lymph % (Auto) 9.0 % 05/19/23 04:29 [place] % (Auto) 1.2 % 05/19/23 04:29 Eos % (Auto) 0.1 % 05/19/23 04:29 Baso % (Auto) 0.2 % 05/19/23 04:29 Neut # (Auto) 8.03 10^3/uL (1.8-7.7) H 05/19/23 04:29 Lymph # (Auto) 0.8 10^3/uL (0.8-4.8) 05/19/23 04:29 [place] # (Auto) 0.1 10^3/uL (0.2-0.9) L 05/19/23 04:29 Eos # (Auto) 0.0 10^3/uL (0.0-0.8) 05/19/23 04:29 Baso # (Auto) 0.0 10^3/uL (0.0-0.1) 05/19/23 04:29 Nucleated RBC % (auto) 0 % 05/19/23 04:29 Nucleated RBCs # 0.0 /100WBC 05/19/23 04:29 APTT 71.7 SECONDS (23.9-36.7) H 05/19/23 12:11 Sodium 136 mmol/L (136-145) 05/19/23 04:29 Potassium 4.6 mmol/L (3.5-5.1) 05/19/23 04:29 Chloride 99 mmol/L (98-107) 05/19/23 04:29 Carbon Dioxide 25 mmol/L (22-29) 05/19/23 04:29 Anion Gap 16.6 (5-19) 05/19/23 04:29 BUN 37 mg/dL (6-20) H 05/19/23 04:29 Creatinine 3.3 mg/dL (0.7-1.2) H 05/19/23 04:29 GFR Calculation 19.6 mL/min (90-130) L 05/19/23 04:29 Glucose 264 mg/dL (65-115) H 05/19/23 04:29 POC Glucose 222 mg/dL (70-110) H 05/19/23 11:46 Calculated Osmolality 300 mOsm/kg (285-295) H 05/19/23 04:29 Calcium 9.2 mg/dL (8.5-10.5) 05/19/23 04:29 Magnesium 1.8 mg/dL (1.7-2.3) 05/18/23 08:06 Total Bilirubin 0.4 mg/dL (0.15-1.2) 05/18/23 08:06 AST 15 U/L (0-40) 05/18/23 08:06 ALT 13 U/L (0-41) 05/18/23 08:06 Alkaline Phosphatase 91 U/L (40-130) 05/18/23 08:06 Troponin T Baseline 68 ng/L (0-15) H 05/18/23 08:06 Troponin T 120 Minute 63.00 ng/L (0-15) H 05/18/23 10:12 Delta Troponin T -5.00 ABS# (0-10) L 05/18/23 10:12 Troponin T Hi Sens 6Hr 62.96 ng/L (0-15) H 05/18/23 13:50 Troponin T Hi Sens 6Hr Delta -5.04 ng/L (0-12) L 05/18/23 13:50 Total Protein 5.5 g/dL (6.6-8.7) L 05/18/23 08:06 Albumin 3.5 g/dL (3.5-5.2) 05/18/23 08:06 Globulin 2.0 g/dL (1.3-4.6) 05/18/23 08:06 Lipase 22 U/L (13-60) 05/18/23 08:06 Urine Color Yellow (Yellow) 05/18/23 08:35 Urine Appearance Clear (CLEAR) 05/18/23 08:35 Urine pH 6 (5-7) 05/18/23 08:35 Ur Specific [place] 1.015 (1.005-1.030) 05/18/23 08:35 Urine Protein 3+ (Negative) H 05/18/23 08:35 Urine Glucose (UA) 1+ (Normal) H 05/18/23 08:35 Urine Ketones Negative (Negative) 05/18/23 08:35 Urine Blood Neg (Negative) 05/18/23 08:35 Urine Nitrate Negative (Negative) 05/18/23 08:35 Urine Bilirubin Neg (Negative) 05/18/23 08:35 Urine Urobilinogen Norm mg/dL (Negative) 05/18/23 08:35 Ur Leukocyte Esterase Negative (Negative) 05/18/23 08:35 Urine RBC Rare /hpf (0-2) 05/18/23 08:35 Urine WBC Rare /hpf (0-5) 05/18/23 08:35 Ur Squamous Epith Cells Rare /hpf (0-5) 05/18/23 08:35 Amorphous Sediment Not Reportable 05/18/23 08:35 Urine Bacteria None /hpf (NONE) 05/18/23 08:35 Hep Bs Antigen Non-reactive (Nonreactive) 05/19/23 04:29 Hep Bs Antibody > 1000.0 (11.5-1000) H 05/19/23 04:29 Hep B Core Total Ab Non-reactive (Nonreactive) 05/19/23 04:29 Vitals Last Vital Signs Temp 97.7 F 05/19/23 15:15 Pulse 80 05/19/23 15:15 Resp 16 05/19/23 15:15 BP 116/76 05/19/23 15:15 Pulse Ox 95 05/19/23 11:41 O2 Del Method Nasal Cannula 05/19/23 11:41 Discharge Plan Discharge Patient Disposition: Home Condition: Stable Prescriptions: New isosorbide mononitrate 30 mg tablet extended release 24 hr See Rx Instructions .ROUTE .COMPLEX Qty: 45 0RF Rx Instructions: 15 mg daily, do not take on dialysis days Continued aspirin 81 mg tablet,delayed release (DR/EC) 81 mg PO QAM Eliquis 2.5 mg tablet 2.5 mg PO BID sevelamer carbonate 800 mg tablet 800 mg PO TID PRN (Reason: UNKNOWN) (DME) Dexcom G7 Refinery Operator Assistant Misc See Rx Instructions .Route Qty: 1 0RF Rx Instructions: As directed hydrocodone-acetaminophen 7.5-325 mg tablet 1 tab PO Q6H PRN (Reason: Pain) carvedilol 3.125 mg tablet 3.125 mg PO DAILY (DME) Dexcom G7 Sensor Device See Rx Instructions .ROUTE .COMPLEX Qty: 9 1RF Dose Instruction: CHANGE every 10 DAYS Rx Instructions: CHANGE every 10 DAYS Trulicity 3 mg/0.5 mL pen injector 3 mg SUBCUT .weekly 30 Days Qty: 2 0RF Rx Instructions: 3mg weekly x one month buspirone 5 mg tablet 5 mg PO TID Qty: 90 2RF atorvastatin 40 mg tablet 40 mg PO QAM Qty: 90 2RF levothyroxine 88 mcg tablet 88 mcg PO QAM Tresiba FlexTouch U-200 200 unit/mL (3 mL) insulin pen 50 unit SUBCUT BEDTIME bumetanide 2 mg tablet See Rx Instructions .ROUTE .COMPLEX Rx Instructions: 2mg (1 tab)po qam and 4mg (2 tabs)in the evening tizanidine 2 mg Tablet 2 mg PO BID PRN (Reason: Muscle Spasm) promethazine 25 mg tablet 25 mg PO Q6H PRN (Reason: Nausea) (DME) Dexcom G7 Refinery Operator Assistant Misc MISCELLANEOUS RenaPlex-D 800 mcg-12.5 mg -2,000 unit tablet 1 tab PO QPM diphenhydramine HCl [Benadryl Allergy] 25 mg Tablet 50 mg PO DAILY PRN (Reason: Allergy Symptoms) nitroglycerin [Nitrostat] 0.4 mg Tablet, Sublingual 0.4 mg SUBLINGUAL Q5M PRN (Reason: Chest Pain) Rx Instructions: do not exceed 3 doses per episode insulin lispro [Humalog KwikPen Insulin] 100 unit/mL insulin pen See Rx Instructions .ROUTE .COMPLEX Rx Instructions: sliding scale subcutaneously twice a day trazodone 100 mg tablet 300 mg PO BEDTIME ranolazine 500 mg tablet extended release 12 hr 500 mg PO BID fluoxetine 10 mg Capsule 10 mg PO DAILY gabapentin 300 mg Capsule 300 mg PO BID bupropion HCl 150 mg Tablet Extended Release 24 Hr 150 mg PO QAM losartan 50 mg tablet 25 mg PO DAILY clopidogrel 75 mg tablet 75 mg PO DAILY lorazepam 1 mg Tablet 1 mg PO Q8H Discharge Orders: Discharge Order (Routine); Ordered 05/19/23 Ordered By: Andrew Gonzalez Referrals: Amalia Mccain FNP [Nurse Practitioner] - 1 week (We have notified your physician's clinic of the need for a follow-up appointment to be scheduled. If you have not heard from them within the next 2 business days, please call them directly. ) Kp Montanez, [Primary Care Provider] - 4-7 days (Please call [facility] to schedule an follow-up within 4 to 7 days. ) Discharge Diet: Diabetic Discharge Activity: Limit activity as instructed Patient Instructions: Isosorbide Mononitrate (By mouth) (Imdur, Imdur ER, Ismo), Angina (GEN), Heart Catheterization (DC), Chest Pain Stoplight, Opioid Safety, Post Angiogram Home Care Instructions Activity Restrictions/Additional Instructions: As discussed, return to ER in case of any worsening or new concerning symptoms. Imdur (nitrate) is added at low-dose to help reduce recurrence of symptoms, do not take it on dialysis days. (If ever needing erectile dysfunction medication, never take it together with nitrates). Discharge Attestations Time Spent in Discharge Care*: greater than 30 min Status at Discharge: Cognitive status at discharge: cognitively intact, Behavioral status at discharge: cooperative and independent in ADL's, Quality Metrics Clinical Quality Measures [ No reported AMI, CVA or VTE this stay] Coding Level of Care Code 04306 Total time (in minutes) for Discharge: 40 Diagnoses Worsening angina I20.0 Hyperlipidemia E78.5 Chronic anticoagulation Z79.01 Hypertension I10 Elevated troponin R77.8
--- NOTE | 2023-05-19 18:38 | PC.NURSE ---
tolerated dialysis well.port flushed with 500 units heparin and de-accessed using aseptic technique.discharge instructions given and explained.pt and spouse verb understanding of instructions.discharged via w/c to exit at this time
== END 2023-05-19 18:41 | disposition home or self-care (01) ==
LOC: ER 07:49 → CSU 11:47
PROVIDERS: Hospitalist; Internal Medicine; Student in an Organized Health Care Education/Training Program; Admitting Provider Internal Medicine; Emergency Provider Family Medicine; PCP Internal Medicine; Visit Provider Internal Medicine
DX: I25.110 Atherosclerotic heart disease of native coronary artery with unstable angina pectoris (principal); E78.5 Hyperlipidemia, unspecified; Z79.01 Long term (current) use of anticoagulants; R77.8 Other specified abnormalities of plasma proteins; E11.22 Type 2 diabetes mellitus with diabetic chronic kidney disease; I13.0 Hypertensive heart and chronic kidney disease with heart failure and stage 1 through stage 4 chronic kidney disease, or unspecified chronic kidney disease; N18.6 End stage renal disease; Z99.2 Dependence on renal dialysis; Z86.718 Personal history of other venous thrombosis and embolism; Z79.82 Long term (current) use of aspirin; Z79.4 Long term (current) use of insulin; I50.9 Heart failure, unspecified; Z86.711 Personal history of pulmonary embolism; E03.9 Hypothyroidism, unspecified
CPT/HCPCS: 36415; 36416; 36591; 71045; 80048; 80053; 81001; 82962; 83690; 83735; 84484; 85025; 85347; 85730; 86705; 86706; 87340; 90935; 93005; 93454; 93571; 96365; 96366; 96372; 96375; 96376; 99152; 99153; 99285; A9270; C1760; C1769; C1887; C1894; G0378; J1200; J1644; J1815; J2250; J2270; J3010; J7030; J7512; Q0169; Q9967

== ENCOUNTER 2023-05-21 13:58 | Oncology outpatient (recurring) (ONCR) | payer MEDICARE, MEDICAID, SELFPAY ==
[2023-05-21 14:50] VITALS: BP 134/57; PULSE 80; RESP 16; TEMP 36.9; O2SAT 95
[2023-05-21 15:31] LABS: Alanine Aminotransferase 14 U/L (0-41); Albumin Level 3.4 g/dL (3.5-5.2); Alkaline Phosphatase 89 U/L (40-130); Anion Gap 10.6 (5-19); Aspartate Amino Transferase 15 U/L (0-40); Blood Urea Nitrogen 21 mg/dL (6-20); Calcium 8.1 mg/dL (8.5-10.5); Carbon Dioxide 31 mmol/L (22-29); Chloride 96 mmol/L (98-107); Chol HDL Ratio 5.75 mg/dL (1.0-5.00); Cholesterol 230 mg/dL (0-200); Globulin 2.7 g/dL (1.3-4.6); Glucose 290 mg/dL (65-115); HDL Cholesterol 40 mg/dL (60-100); Osmolality Calculated 292 mOsm/kg (285-295); Potassium 3.6 mmol/L (3.5-5.1); Sodium 134 mmol/L (136-145); Thyroid Stimulating Hormone 4.63 uIU/mL (0.27-4.20); Total Bilirubin 0.5 mg/dL (0.15-1.2); Total Protein 6.1 g/dL (6.6-8.7); Triglycerides 408 mg/dL (0-150)
[2023-05-21 17:24] LABS: Estmated Average Glucose 157; Hemoglobin A1C 7.1 % (4.0-6.0)
[2023-05-21 17:41] LABS: LDL Cholesterol Direct 124 mg/dL (0-100)
[2023-05-21 18:34] LABS: Free T4 Free Thyroxine 1.09 ng/dL (0.82-1.77)
== END 2023-06-19 23:59 | disposition home or self-care (01) ==
PROVIDERS: Internal Medicine; PCP Internal Medicine; Visit Provider Internal Medicine
DX: E11.42 Type 2 diabetes mellitus with diabetic polyneuropathy (principal); E03.9 Hypothyroidism, unspecified; E78.5 Hyperlipidemia, unspecified; R60.1 Generalized edema; I10 Essential (primary) hypertension
CPT/HCPCS: 36591; 80053; 80061; 83036; 83721; 84439; 84443; J1642

== ENCOUNTER → 2023-05-22 07:40 | Outpatient (BNVA) | payer MEDICARE, MEDICAID, SELFPAY | PROVIDERS: PCP Internal Medicine; Visit Provider Podiatrist Foot & Ankle Surgery | DX: E11.8 Type 2 diabetes mellitus with unspecified complications (principal); E11.42 Type 2 diabetes mellitus with diabetic polyneuropathy; L60.3 Nail dystrophy; I73.9 Peripheral vascular disease, unspecified; Z79.4 Long term (current) use of insulin | CPT/HCPCS: 11721 ==

== ENCOUNTER 2023-05-24 07:12 | Outpatient (CLI) | payer MEDICARE, MEDICAID, SELFPAY ==
--- NOTE | 2023-05-24 07:17 | US_ITS ---
WS: [id number] Complete ABDOMINAL ULTRASOUND HISTORY: ABDOMINAL DISCOMFORT COMPARISON: Renal ultrasound 05/21/2022 Liver: 17.7 cm in length. Top normal size liver with mild hepatic steatosis. No mass or bile duct dil atation. There is an echogenic focus adjacent to the inferior RIGHT lobe of the liver which correspon ds to an adenoma in the adrenal gland as noted on a prior CT of 02/09/2023. Portal Vein: Normal hepatopetal flow with monophasic waveform. Gallbladder: Surgically removed. CBD: 0.6 cm Pancreas: Obscured partially. Right kidney: 11.9 cm x 5.2 x 4.6 cm. Cortex:1.1 cm. Normal size kidney with mild diffuse cortical thinning. Increased perinephric fat surrounding the kid kurt as noted on the prior CT. No obstruction. Left kidney: 10.3 cm x 4.8 cm x 5.3 cm. Cortex: 1.1 cm. Normal size kidney with mild cortical thinning. No hydronephrosis. Increased perinephric fat is ident ified. Spleen: Normal. Aorta and IVC: Unremarkable abdominal aorta and IVC. Impression: 1. Prior cholecystectomy. 2. Normal size kidneys with mild cortical thinning. 3. Very mild hepatic enlargement and hepatic steatosis.
== END 2023-05-24 07:13 | disposition home or self-care (01) ==
LOC: RAD 07:12
PROVIDERS: PCP Internal Medicine; Visit Provider Internal Medicine Nephrology
DX: R10.84 Generalized abdominal pain (principal); K76.0 Fatty (change of) liver, not elsewhere classified; R16.0 Hepatomegaly, not elsewhere classified
CPT/HCPCS: 76700

== ENCOUNTER → 2023-06-05 10:04 | Outpatient (BNVA) | payer MEDICARE, MEDICAID, SELFPAY | PROVIDERS: PCP Internal Medicine; Visit Provider Nurse Practitioner Family | DX: I25.118 Atherosclerotic heart disease of native coronary artery with other forms of angina pectoris (principal); I13.2 Hypertensive heart and chronic kidney disease with heart failure and with stage 5 chronic kidney disease, or end stage renal disease; E11.22 Type 2 diabetes mellitus with diabetic chronic kidney disease; N18.6 End stage renal disease; I50.22 Chronic systolic (congestive) heart failure; Z79.4 Long term (current) use of insulin | CPT/HCPCS: 99214 ==

== ENCOUNTER → 2023-07-03 13:47 | Outpatient (BNVA) | payer MEDICARE, MEDICAID, SELFPAY | PROVIDERS: PCP Internal Medicine; Visit Provider Internal Medicine | DX: I42.9 Cardiomyopathy, unspecified (principal); I25.10 Atherosclerotic heart disease of native coronary artery without angina pectoris; E66.9 Obesity, unspecified; Z68.41 Body mass index [BMI] 40.0-44.9, adult; I82.622 Acute embolism and thrombosis of deep veins of left upper extremity; I13.2 Hypertensive heart and chronic kidney disease with heart failure and with stage 5 chronic kidney disease, or end stage renal disease; E11.22 Type 2 diabetes mellitus with diabetic chronic kidney disease; N18.6 End stage renal disease; I50.23 Acute on chronic systolic (congestive) heart failure; Z79.4 Long term (current) use of insulin | CPT/HCPCS: 99214 ==

== ENCOUNTER 2023-07-06 15:47 | Outpatient (CLI) | payer MEDICARE, MEDICAID, SELFPAY | END 2023-07-06 15:48 | disposition home or self-care (01) | PROVIDERS: PCP Internal Medicine; Visit Provider Emergency Medicine | DX: Z11.52 Encounter for screening for COVID-19 (principal); R52 Pain, unspecified | CPT/HCPCS: 87400; 87426 ==

== ENCOUNTER 2023-07-07 09:21 | Emergency (ER) | payer MEDICARE, MEDICAID, SELFPAY ==
[2023-07-07] VITALS (10 sets, daily range): BP systolic 122–173; BP diastolic 79–87; PULSE 67–86; RESP 16–17; TEMP 36.4; O2SAT 91–98; BMI 41.4
--- NOTE | 2023-07-07 10:04 | XRR_ITS ---
PROCEDURE INFORMATION: Exam: XR Chest Exam date and time: 07/07/2023 11:14 AM Age: 53 years old Clinical indication: Fever; Prior surgery; Surgery date: 6+ months; Surgery type: Open heart. Chest port. Gb. Coronary stents; Additional info: Weakness TECHNIQUE: Imaging protocol: Radiologic exam of the chest. Views: 1 view. COMPARISON: CR XR chest 1V portable [id number] 05/18/2023 11:49 AM FINDINGS: Tubes, catheters and devices: A MediPort catheter is placed via the left subclavian vein with its tip at the level of the superior vena cava. Lungs: Some strandy opacities are seen in the left lung base likely representing atelectasis versus parenchymal or pleural scarring. There are some strandy and patchy opacities present in the right lung base is well. Bilateral basilar pneumonia can not be entirely excluded. Pleural spaces: See Lungs finding. Heart/Mediastinum: Unremarkable. No cardiomegaly. Bones/joints: Unremarkable. XR/XR chest 1V [id number] IMPRESSION: Strandy opacities in the left lung base and strandy and patchy opacities in the right lung base likely represents atelectasis. However, bilateral basilar infiltrates and pneumonia can not be entirely excluded.
--- NOTE | 2023-07-07 11:34 | W.ED.DIZZY ---
HPI - Dizziness General: Chief Complaint: Dizziness Stated Complaint: headache, nausea, dizzy Time Seen by Provider: 07/07/23 10:04 History of Present Illness: HPI Narrative: 53-year-old male presents to the emergency department with complaints of intermittently feeling dizzy and weak for the past 3 days. He states he felt like he is having significant nausea this morning without vomiting. He states that he is a diabetic and has dialysis on Saturday and Saturday. He states his last hemoglobin A1c was 7.3. He states he also has had a history of lower leg surgery secondary to compartment syndrome. Patient states he fell this morning while attempting to sit in his chair. He states he fell backwards into the chair because of his weakness. He denies pain or injury from the fall. He does endorse recent sick contacts. Patient is accompanied by female yard demurrage clerk she states that she is concerned that he may have a bowel obstruction. Patient states that he has a bowel movement daily without any irregularity. Patient states he had a bowel movement yesterday afternoon and does not feel like he has an obstruction. Associated symptoms: Reports malaise and nausea Review of Systems General: Reports: 10 or more systems reviewed and unremarkable except in HPI and below Const: Reports: fatigue and malaise GI: Reports: nausea PFSH ED PFSH: Medical History ESRD (end stage renal disease) Uremic encephalopathy Generalized anxiety disorder ESRD (end stage renal disease) D-dimer, elevated Acute on chronic congestive heart failure History of pulmonary embolism Diabetes Acute kidney injury superimposed on CKD GERD (gastroesophageal reflux disease) Alcohol use disorder, moderate, in sustained remission Major depressive disorder, recurrent severe without psychotic features DVT (deep venous thrombosis) (~03/2020) Proximal left subclavian, basilic and brachial veins, started eliquis this stay, felt present prior to admission Chronic kidney disease -baseline Cr appears to be around 1.5 Chronic systolic heart failure Atherosclerotic heart disease of [place] coronary artery with other forms of angina pectoris hx of CAD with prior stenting of proximal LAD, LCx, RCA Ischemic cardiomyopathy Onychodystrophy Chronic anticoagulation Eliquis Osteoarthritis of spine Hypothyroidism Hypertension Hyperlipidemia Diabetes Depression Anemia Foot drop, left H/O acute myocardial infarction H/O deep venous thrombosis developed compartment syndrome Surgical History Peritoneal dialysis catheter in situ (06/15/21) History of appendectomy 1995 History of excision of mass 06/08/2019: Subcutaneous mass on back History of removal of Port-a-Cath Port-A-Cath in place H/O vasectomy Hx of cholecystectomy History of coronary artery stent placement 5x H/O skin graft History of inguinal hernia repair, bilateral 2000 H/O removal of testicle left H/O colonoscopy (11/14/20) 08/2015 H/O esophagogastroduodenoscopy (11/14/20) 08/2015 Family History Grandfather Cancer skin cancer Parkinson disease Brother Hypertension Father Heart disease Mother Hypertension Stroke Aneurysm Grandmother Aneurysm Other Crohn's disease Denies family history of Anesthesia complication Bleeding disorder Social History Smoking and tobacco/nicotine status: never used tobacco/nicotine Second hand smoke exposure: No Alcohol intake: former Year of sobriety/quit date alcohol: 2015 Former alcohol use details: Only holidays Substance/Drug Use: never Lives independently: Yes Household members: significant other Marital status: Single Current occupational status: disabled Physical Exam Narrative: EXAM NARRATIVE: Constitutional: the patient appears well nourished and of normal development. Vital signs as documented. No acute distress at present. Alert and oriented-to person, place, time and situation. Head, eyes, ears, nose, mouth, throat: Normocephalic, atraumatic. Pupils-equal, round, reactive to light. No scleral icterus. Normal-appearing external ears. Normal appearing nasal turbinates, no drainage. No obvious oral lesions, posterior oropharynx without erythema or exudates. Neck: Supple, trachea is midline, no lymphadenopathy, no jugular venous distension, thyromegaly, or carotid bruits. Carotid upstrokes are brisk bilaterally. Lungs: clear to auscultation to all lung [place]. Symmetrical rise and fall of chest, no obvious signs of increased work of breathing at present. Cardiac: Regular rate and rhythm, positive S1, S2. No murmurs, rubs or gallops that I can appreciate Abdomen: Soft, non-tender to palpation, normal active bowel sounds to all quadrants. No palpable masses, no organomegaly and abdominal bruits. Extremities: 2+ pulses in the upper extremities that are equal bilaterally, 2+ pulses in the lower extremities that are equal bilaterally. Non-edematous. Moves all extremities well, sensation to all extremities are noted. Left upper extremity with dialysis catheter, bilateral lower extremities with postoperative surgical scars that are well-healed. Skin: Warm, dry, intact. Course Vital Signs: Vital signs: Vital Signs Temperature 97.5 F L 07/07/23 09:39 Pulse Rate 67 07/07/23 15:26 Respiratory Rate 17 07/07/23 15:26 Blood Pressure 122/81 07/07/23 15:00 Pulse Oximetry 96 07/07/23 15:00 Oxygen Delivery Me thod Room Air 07/07/23 14:30 MDM - Dizziness Medical Decision Making Given the patient's presentation and dialysis requirement I will obtain a chest x-ray, CBC, CMP, lipase, procalcitonin, and blood cultures. Medical Records I reviewed the patient's medical records. Lab Data I reviewed the patient's lab results. 07/07/23 11:35 07/07/23 11:35 Radiology Impressions Chest X-Ray 07/07/23 10:04 IMPRESSION: Strandy opacities in the left lung base and strandy and patchy opacities in the right lung base likely represents atelectasis. However, bilateral basilar infiltrates and pneumonia can not be entirely excluded. Head CT 07/07/23 13:27 IMPRESSION: No large territorial infarct or intracranial bleed. Laboratory Results WBC 7.73 10^3/uL (3.29-11.43) 07/07/23 11:35 RBC 3.73 10^6/uL (3.85-5.65) L 07/07/23 11:35 Hgb 12.50 g/dL (11.27-16.99) 07/07/23 11:35 Hct 37.2 % (37-53) 07/07/23 11:35 MCV 99.7 fl (82-101) 07/07/23 11:35 MCH 33.5 pg (27-33) H 07/07/23 11:35 MCHC 33.6 g/dL (30-55) 07/07/23 11:35 RDW 13.4 % (12.1-15.1) 07/07/23 11:35 Plt Count 255 10^3/cmm (157-399) 07/07/23 11:35 MPV 9.3 fL (7.4-10.4) 07/07/23 11:35 Neut % (Auto) 70.1 % 07/07/23 11:35 Lymph % (Auto) 18.0 % 07/07/23 11:35 [place] % (Auto) 8.2 % 07/07/23 11:35 Eos % (Auto) 2.3 % 07/07/23 11:35 Baso % (Auto) 0.9 % 07/07/23 11:35 Neut # (Auto) 5.42 10^3/uL (1.8-7.7) 07/07/23 11:35 Lymph # (Auto) 1.4 10^3/uL (0.8-4.8) 07/07/23 11:35 [place] # (Auto) 0.6 10^3/uL (0.2-0.9) 07/07/23 11:35 Eos # (Auto) 0.2 10^3/uL (0.0-0.8) 07/07/23 11:35 Baso # (Auto) 0.1 10^3/uL (0.0-0.1) 07/07/23 11:35 Nucleated RBC % (auto) 0 % 07/07/23 11:35 Nucleated RBCs # 0.0 /100WBC 07/07/23 11:35 Sodium 135 mmol/L (136-145) L 07/07/23 11:35 Potassium 4.2 mmol/L (3.5-5.1) 07/07/23 11:35 Chloride 94 mmol/L (98-107) L 07/07/23 11:35 Carbon Dioxide 29 mmol/L (22-29) 07/07/23 11:35 Anion Gap 16.2 (5-19) 07/07/23 11:35 BUN 30 mg/dL (6-20) H 07/07/23 11:35 Creatinine 3.5 mg/dL (0.7-1.2) H 07/07/23 11:35 GFR Calculation 18.3 mL/min (90-130) L 07/07/23 11:35 Glucose 179 mg/dL (65-115) H 07/07/23 11:35 Calculated Osmolality 291 mOsm/kg (285-295) 07/07/23 11:35 Lactic Acid 1.3 mmol/L (0.5-2.2) 07/07/23 11:35 Calcium 9.0 mg/dL (8.5-10.5) 07/07/23 11:35 Phosphorus 4.7 mg/dL (2.5-4.5) H 07/07/23 11:35 Magnesium 2.1 mg/dL (1.7-2.3) 07/07/23 11:35 Total Bilirubin 0.3 mg/dL (0.15-1.2) 07/07/23 11:35 AST 15 U/L (0-40) 07/07/23 11:35 ALT 11 U/L (0-41) 07/07/23 11:35 Alkaline Phosphatase 101 U/L (40-130) 07/07/23 11:35 C-Reactive Protein 23.5 mg/L (0.0-4.9) H 07/07/23 11:35 Total Protein 6.7 g/dL (6.6-8.7) 07/07/23 11:35 Albumin 3.7 g/dL (3.5-5.2) 07/07/23 11:35 Globulin 3.0 g/dL (1.3-4.6) 07/07/23 11:35 Lipase 25 U/L (13-60) 07/07/23 11:35 Procalcitonin 0.18 ng/mL (0-0.5) 07/07/23 11:35 Urine Color Yellow (Yellow) 07/07/23 13:40 Urine Appearance Clear (CLEAR) 07/07/23 13:40 Urine pH 5 (5-7) 07/07/23 13:40 Ur Specific [place] 1.015 (1.005-1.030) 07/07/23 13:40 Urine Protein 3+ (Negative) H 07/07/23 13:40 Urine Glucose (UA) 1+ (Normal) H 07/07/23 13:40 Urine Ketones Negative (Negative) 07/07/23 13:40 Urine Blood Neg (Negative) 07/07/23 13:40 Urine Nitrate Negative (Negative) 07/07/23 13:40 Urine Bilirubin Neg (Negative) 07/07/23 13:40 Urine Urobilinogen Norm mg/dL (Negative) 07/07/23 13:40 Ur Leukocyte Esterase Negative (Negative) 07/07/23 13:40 Urine RBC None /hpf (0-2) 07/07/23 13:40 Urine WBC 5-10 /hpf (0-5) H 07/07/23 13:40 Ur Squamous Epith Cells Rare /hpf (0-5) 07/07/23 13:40 Amorphous Sediment Not Reportable 07/07/23 13:40 Urine Bacteria 1+ /hpf (NONE) H 07/07/23 13:40 Hyaline Casts 0-4 /lpf H 07/07/23 13:40 Coarse Granular Casts 0-4 /lpf H 07/07/23 13:40 Coronavirus 229E (PCR) Not detected (NOT DETECT) 07/07/23 12:43 Influenza Type A Ag negative (Negative) 07/07/23 12:43 Influenza Type B Ag negative (Negative) 07/07/23 12:43 SARS-CoV-2 (PCR) Not detected (NOT DETECT) 07/07/23 12:43 All radiology interpretation(s) finalized by discharge EKG Data EKG 1: Interpretation: Twelve-lead EKG obtained at 1152 and reviewed 1155 demonstrates sinus rhythm with first-degree AV block. Ventricular rate 76 bpm, MI interval 214, QRS duration 101, QT 4 3, QTc [address] elevation or depression to demonstrate acute ischemia or infarction at present. Discharge Plan Discharge Patient Disposition: Home Clinical Impression: Vertigo, Nausea Condition: Stable Prescriptions: New meclizine 12.5 mg tablet 12.5 mg PO BID PRN (Reason: dizziness) Qty: 14 0RF No Action aspirin 81 mg tablet,delayed release (DR/EC) 81 mg PO QAM Eliquis 2.5 mg tablet 2.5 mg PO BID sevelamer carbonate 800 mg tablet 800 mg PO TID PRN (Reason: UNKNOWN) (DME) Dexcom G7 Web Design Instructor Misc See Rx Instructions .Route Qty: 1 0RF Rx Instructions: As directed carvedilol 3.125 mg tablet 3.125 mg PO DAILY (DME) Dexcom G7 Sensor Device See Rx Instructions .ROUTE .COMPLEX Qty: 9 1RF Dose Instruction: CHANGE every 10 DAYS Rx Instructions: CHANGE every 10 DAYS Trulicity 3 mg/0.5 mL pen injector 4.5 mg SUBCUT .weekly Rx Instructions: ON SATURDAY atorvastatin 40 mg tablet 40 mg PO QAM Qty: 90 2RF levothyroxine 88 mcg tablet 88 mcg PO QAM Tresiba FlexTouch U-200 200 unit/mL (3 mL) insulin pen 48 - 50 unit SUBCUT QAM fluoxetine 40 mg capsule 40 mg PO DAILY buspirone 10 mg tablet 10 mg PO BID gabapentin 100 mg capsule 100 mg PO BID bupropion HCl 300 mg tablet extended release 24 hr 300 mg PO QAM duloxetine 30 mg capsule,delayed release(DR/EC) 30 mg PO DAILY levofloxacin 500 mg tablet 500 mg PO DAILY 7 Days Qty: 7 0RF bumetanide 2 mg tablet See Rx Instructions .ROUTE .COMPLEX Rx Instructions: 2mg (1 tab)po qam and 4mg (2 tabs)in the evening tizanidine 2 mg Tablet 2 mg PO BID PRN (Reason: Muscle Spasm) promethazine 25 mg tablet 25 mg PO Q6H PRN (Reason: Nausea) (DME) Dexcom G7 Web Design Instructor Misc MISCELLANEOUS RenaPlex-D 800 mcg-12.5 mg -2,000 unit tablet 1 tab PO QPM diphenhydramine HCl [Benadryl Allergy] 25 mg Tablet 50 mg PO DAILY PRN (Reason: Allergy Symptoms) nitroglycerin [Nitrostat] 0.4 mg Tablet, Sublingual 0.4 mg SUBLINGUAL Q5M PRN (Reason: Chest Pain) Rx Instructions: do not exceed 3 doses per episode insulin lispro [Humalog KwikPen Insulin] 100 unit/mL insulin pen See Rx Instructions .ROUTE .COMPLEX Rx Instructions: sliding scale subcutaneously twice a day trazodone 100 mg tablet 300 mg PO BEDTIME ranolazine 500 mg tablet extended release 12 hr 500 mg PO BID clopidogrel 75 mg tablet 75 mg PO DAILY lorazepam 1 mg Tablet 1 mg PO Q8H isosorbide mononitrate 30 mg tablet extended release 24 hr See Rx Instructions .ROUTE .COMPLEX Qty: 45 0RF Rx Instructions: 15 mg daily, do not take on dialysis days Discharge Orders: Discharge ED (Routine); Ordered 07/07/23 Ordered By: Oli Greer Referrals: Kp Montanez, [Primary Care Provider] - Discharge Diet: Advance as tolerated Discharge Activity: Resume usual activity Patient Instructions: Opioid Safety, Pain Management Activity Restrictions/Additional Instructions: Activity Restrictions/Additional Instructions: Thank you for choosing [facility] for your healthcare needs today. Please realize that you were seen in the Emergency Department and that we are providing you with an emergency medical screening exam and this may not be a complete and all inclusive of all the testing and or medical work-up that you may need to determine your ailment or severity of your illness. It is very important that you follow-up as instructed with your Primary care provider or Specialist for additional evaluation and to discuss your medical treatment plan. You may return to the Emergency Department should you have concerns or if your condition changes or worsens in any way. Coding Level of Care Code ED Salesperson [employer] for Aaron Irene
--- NOTE | 2023-07-07 11:52 | ECG_ITS ---
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 Measurements Intervals Webber Rate: 76 P: 23 VT: 214 QRS: 27 QRSD: 101 T: 72 QT: 403 QTc: 456 Interpretive Statements SINUS RHYTHM WITH FIRST DEGREE AV BLOCK POSSIBLE ANTERIOR MYOCARDIAL INFARCTION , PROBABLY OLD [30 ms Q WAVE IN V3/V4, OR R < 0.2 mV IN V4] Compared to ECG 05/18/2023 17:31:17 First degree AV block now present Myocardial infarct finding still present Electronically Signed On 07-07-2023 18:03:06 CREW CAR [employer] by Vinayak Bejarano M.D. [email or web address]
[2023-07-07 12:16] LABS: Basophils # 0.1 10^3/uL (0.0-0.1); Basophils % 0.9 %; Eosinophils # 0.2 10^3/uL (0.0-0.8); Eosinophils % 2.3 %; Hematocrit 37.2 % (37-53); Lymphocytes # 1.4 10^3/uL (0.8-4.8); Mean Corpuscular HGB Conc 33.6 g/dL (30-55); Mean Corpuscular Hemoglobin 33.5 pg (27-33); Mean Corpuscular Volume 99.7 fl (82-101); Mean Platelet Volume 9.3 fL (7.4-10.4); Monocytes # 0.6 10^3/uL (0.2-0.9); Monocytes % 8.2 %; Neutrophils # 5.42 10^3/uL (1.8-7.7); Neutrophils % 70.1 %; Nucleated Red Blood Cells % 0 %; Platelet Count 255 10^3/cmm (157-399); Red Blood Count 3.73 10^6/uL (3.85-5.65); Red Cell Distribution Width 13.4 % (12.1-15.1); White Blood Count 7.73 10^3/uL (3.29-11.43)
[2023-07-07 12:35] LABS: Alanine Aminotransferase 11 U/L (0-41); Albumin Level 3.7 g/dL (3.5-5.2); Alkaline Phosphatase 101 U/L (40-130); Anion Gap 16.2 (5-19); Aspartate Amino Transferase 15 U/L (0-40); Blood Urea Nitrogen 30 mg/dL (6-20); C Reactive Protein 23.5 mg/L (0.0-4.9); Carbon Dioxide 29 mmol/L (22-29); Chloride 94 mmol/L (98-107); Glomerular Filtration Rate 18.3 mL/min (90-130); Glucose 179 mg/dL (65-115); Lipase 25 U/L (13-60); Magnesium 2.1 mg/dL (1.7-2.3); Osmolality Calculated 291 mOsm/kg (285-295); Phosphorus 4.7 mg/dL (2.5-4.5); Potassium 4.2 mmol/L (3.5-5.1); Sodium 135 mmol/L (136-145); Total Bilirubin 0.3 mg/dL (0.15-1.2); Total Protein 6.7 g/dL (6.6-8.7)
[2023-07-07 12:38] LABS: Lactic Sepsis W/Reflex 1.3 mmol/L (0.5-2.2)
[2023-07-07 12:41] LABS: Procalcitonin 0.18 ng/mL (0-0.5)
[2023-07-07 13:23] LABS: Influenza A by IFA negative (Negative); Influenza B by IFA negative (Negative)
--- NOTE | 2023-07-07 13:27 | CTR_ITS ---
PROCEDURE INFORMATION: Exam: CT Head Without Contrast Exam date and time: 07/07/2023 2:07 PM Age: 53 years old Clinical indication: Dizziness TECHNIQUE: Imaging protocol: Computed tomography of the head without contrast. Radiation optimization: All CT scans at this facility use at least one of these dose optimization techniques: automated exposure control; mA and/or kV adjustment per patient size (includes targeted exams where dose is matched to clinical indication); or iterative reconstruction. 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 Cerebral ventricles: No ventriculomegaly. Pituitary gland and sella: There is a partially empty sella. Paranasal sinuses: Visualized sinuses are unremarkable. No fluid levels. Mastoid air cells: Visualized mastoid air cells are well aerated. Bones/joints: Unremarkable. No acute fracture. Soft tissues: Unremarkable. CT/CT head wo con* [id number] IMPRESSION: No large territorial infarct or intracranial bleed.
[2023-07-07 14:15] LABS: Add Urine Culture? No; Bacteria Urine 1+ /hpf; Bilirubin Urine Neg (Negative); Blood Urine Neg (Negative); Coarse Granular Casts Urine 0-4 /lpf; Glucose Urine UA 1+ (Normal); Hyaline Casts Urine 0-4 /lpf; Ketones Urine Negative (Negative); Leukocyte Esterase Urine Negative (Negative); Nitrate Urine Negative (Negative); Protein Urine 3+ (Negative); Specific Gravity, Urine 1.015 (1.005-1.030); Squamous Epithelial Cell Urine RARE /hpf (0-5); Urine Appearance Clear (CLEAR); Urine Color Yellow (Yellow); Urobilinogen Urine Norm (Negative); pH Urine 5 (5-7)
[2023-07-07 14:54] LABS: Adenovirus Not Detected (NOT DETECT); Chlamydia Pneumoniae Not Detected (NOT DETECT); Coronavirus 229E,HKU1,NL63,OC4 Not Detected (NOT DETECT); Human Metapneumovirus Not Detected (NOT DETECT); Human Rhinovirus/Enterovirus Not Detected (NOT DETECT); Influenza A Not Detected (NOT DETECT); Influenza A H1 Not Detected (NOT DETECT); Influenza A H1-2009 Not Detected (NOT DETECT); Influenza A H3 Not Detected (NOT DETECT); Influenza B Not Detected (NOT DETECT); Mycoplasma Pneumoniae Not Detected (NOT DETECT); Parainfluenza Virus Type 1 Not Detected (NOT DETECT); Parainfluenza Virus Type 2 Not Detected (NOT DETECT); Parainfluenza Virus Type 3 Not Detected (NOT DETECT); Parainfluenza Virus Type 4 Not Detected (NOT DETECT); Respiratory Syncytial Virus A Not Detected (NOT DETECT); Respiratory Syncytial Virus B Not Detected (NOT DETECT); SARS-COV-2 Not Detected (NOT DETECT)
== END 2023-07-07 15:17 | disposition home or self-care (01) ==
PROVIDERS: Emergency Medicine; Emergency Provider Internal Medicine; PCP Internal Medicine
DX: R42 Dizziness and giddiness (principal); R11.0 Nausea; Z79.82 Long term (current) use of aspirin; Z79.01 Long term (current) use of anticoagulants; Z79.85 Long-term (current) use of injectable non-insulin antidiabetic drugs; Z79.4 Long term (current) use of insulin; Z79.02 Long term (current) use of antithrombotics/antiplatelets; Z11.52 Encounter for screening for COVID-19; E11.22 Type 2 diabetes mellitus with diabetic chronic kidney disease; I13.2 Hypertensive heart and chronic kidney disease with heart failure and with stage 5 chronic kidney disease, or end stage renal disease; I50.9 Heart failure, unspecified; N18.6 End stage renal disease; Z99.2 Dependence on renal dialysis; I25.118 Atherosclerotic heart disease of native coronary artery with other forms of angina pectoris; I25.5 Ischemic cardiomyopathy; E78.5 Hyperlipidemia, unspecified; I25.2 Old myocardial infarction
CPT/HCPCS: 36415; 70450; 71045; 80053; 81001; 83605; 83690; 83735; 84100; 84145; 85025; 86140; 87040; 87635; 87804; 93005; 99285

== ENCOUNTER 2023-07-08 05:23 | Emergency (ER) | payer MEDICARE, MEDICAID, SELFPAY ==
[2023-07-08 05:25] VITALS: BP 179/82; PULSE 94; RESP 16; TEMP 38.3; O2SAT 91; BMI 41.4
--- NOTE | 2023-07-08 05:35 | XRR_ITS ---
PROCEDURE INFORMATION: Exam: XR Chest Exam date and time: 07/08/2023 5:38 AM Age: 53 years old Clinical indication: Prior surgery; Surgery date: 6+ months; Surgery type: Open heart. Chest port. Coronary stents. Gb. Patient HX: Fever. Bleeding from chest port. TECHNIQUE: Imaging protocol: Radiologic exam of the chest. Views: 1 view. COMPARISON: CR XR chest 1V [id number] 07/07/2023 11:14 AM FINDINGS: Tubes, catheters and devices: A MediPort catheter is placed via the left subclavian vein with its tip at the level of the superior vena cava. Lungs: See Intraperitoneal space finding. Pleural spaces: Unremarkable. No pleural effusion. No pneumothorax. Heart/Mediastinum: Unremarkable. No cardiomegaly. Bones/joints: Unremarkable. Intraperitoneal space: There are stable strandy opacities present left lower hemithorax compared with yesterday's examination. This likely represents some atelectasis left basilar pneumonia can not entirely excluded. XR/XR chest 1V portable [id number] IMPRESSION: Stable strandy opacities present left lower hemithorax may represent atelectasis although left basilar pneumonia entirely. This finding is similar to that seen on yesterday's examination.
--- NOTE | 2023-07-08 05:35 | ED_ITS ---
Documented by User: Moses Gauthier MD 07/08/23 05:38 HPI - General Adult 2 General: Chief complaint: General Medical Stated complaint: PORT BLEEDING Time Seen by Provider: 07/08/23 05:25 Source: patient and EMS Mode of arrival: EMS Limitations: no limitations History of Present Illness: 53-year-old male history of end-stage re nal disease he is on dialysis goes Saturday did receive it on Saturday. States he has not felt well over the last 2 days has had fevers he was seen here yesterday had blood work that was normal. He states that he had his Port-A-Cath accessed and has had bleeding from the site since then. Denies any pain anywhere he is febrile here today of 100.9 Associated symptoms: Deny chest pain, dyspnea, headache(s), nausea, rash or vomiting Review of Systems 2 Const: Reports: fever(s); Denies: chills, body aches or change in appetite ENMT: Denies: throat pain or dental pain Card: Denies: chest pain Resp: Denies: dyspnea GI: Denies: abdominal pain, nausea, vomiting or diarrhea : Denies: dysuria Musc: Denies: neck pain or back pain Skin/Breast: Denies: rash Neuro: Denies: headache(s) PFSH ED 2 PFSH: Medical History ESRD (end stage renal disease) Uremic encephalopathy Generalized anxiety disorder ESRD (end stage renal disease) D-dimer, elevated Acute on chronic congestive heart failure History of pulmonary embolism Diabetes Acute kidney injury superimposed on CKD GERD (gastroesophageal reflux disease) Alcohol use disorder, moderate, in sustained remission Major depressive disorder, recurrent severe without psychotic features DVT (deep venous thrombosis) (~03/2020) Proximal left subclavian, basilic and brachial veins, started eliquis this stay, felt present prior to admission Chronic kidney disease -baseline Cr appears to be around 1.5 Chronic systolic heart failure Atherosclerotic heart disease of mary[place] igloo coronary artery with other forms of angina pectoris hx of CAD with prior stenting of proximal LAD, LCx, RCA Ischemic cardiomyopathy Onychodystrophy Chronic anticoagulation Eliquis Osteoarthritis of spine Hypothyroidism Hypertension Hyperlipidemia Diabetes Depression Anemia Foot drop, left H/O acute myocardial infarction H/O deep venous thrombosis developed compartment syndrome Surgical History Peritoneal dialysis catheter in situ (06/15/21) History of appendectomy 1995 History of excision of mass 06/08/2019: Subcutaneous mass on back History of removal of Port-a-Cath Port-A-Cath in place H/O vasectomy Hx of cholecystectomy History of coronary artery stent placement 5x H/O skin graft History of inguinal hernia repair, bilateral 2000 H/O removal of testicle left H/O colonoscopy (11/14/20) 08/2015 H/O esophagogastroduodenoscopy (11/14/20) 08/2015 Family History Grandfather Cancer skin cancer Parkinson disease Brother Hypertension Father Heart disease Mother Hypertension Stroke Aneurysm Grandmother Aneurysm Other Crohn's disease Denies family history of Anesthesia complication Bleeding disorder Social History Smoking and tobacco/nicotine status: never used tobacco/nicotine Second hand smoke exposure: No Alcohol intake: former Year of sobriety/quit date alcohol: 2015 Former alcohol use details: Only holidays Substance/Drug Use: never Lives independently: Yes Household members: significant other Marital status: Single Current occupational status: disabled Physical Exam 2 Const: COMMON NORMALS: no acute distress, patient oriented x3 and healthy appearing HENMT: COMMON NORMALS: normocephalic and atraumatic HEAD & SCALP: n ormocephalic and atraumatic Eye: COMMON NORMALS: Equal, round and reactive pupils present and EOMs intact bilaterally PUPIL: Yes Equal, round and reactive pupils present Neck/C-Spine: COMMON NORMALS: full ROM and supple Chest: COMMONS NORMALS: normal palpation of entire chest wall OTHER: Very small amount of bleeding at Port-A-Cath site to left chest Resp: COMMON NORMALS: normal respiratory effort, No retractions, No use of accessory muscles and clear to auscultation bilaterally AUSCULTATION: clear to auscultation bilaterally Cardio: COMMON NORMALS: regular rate, regular rhythm and No murmurs present (Cardio) RATE: regular rate RHYTHM: regular rhythm GI: COMMON NORMALS: Normal to inspection, nondistended, normoactive bowel sounds present, Soft to palpation, non-tender and no masses PALPATION: Yes Soft to palpation Extremity: COMMON NORMALS: normal to inspection and full ROM Neuro: COMMON NORMALS: patient oriented x3, moves all extremities and no focal motor deficits Psych: COMMON NORMALS: mental status grossly normal, Normal thought process present and cooperative THOUGHT PROCESS: Normal thought process present Skin: COMMON NORMALS: no rashes or lesions noted and no wounds GENERAL SKIN EXAM: no rashes or lesions noted Course 2 Vital Signs: Vital signs: Vital Signs Temperature 98.6 F 07/08/23 08:00 Pulse Rate 93 07/08/23 06:51 Respiratory Rate 18 07/08/23 06:51 Blood Pressure 128/75 07/08/23 08:00 Pulse Oximetry 94 07/08/23 08:00 Oxygen Delivery Me thod Room Air 07/08/23 08:00 [facility] - General Adult Lab Data 07/08/23 05:48 07/08/23 05:48 Radiology Impressions Chest X-Ray 07/08/23 05:35 IMPRESSION: Stable strandy opacities present left lower hemithorax may represent atelectasis although left basilar pneumonia entirely. This finding is similar to that seen on yesterday's examination. Laboratory Results WBC 9.16 10^3/uL (3.29-11.43) 07/08/23 05:48 RBC 3.65 10^6/uL (3.85-5.65) L 07/08/23 05:48 Hgb 11.80 g/dL (11.27-16.99) 07/08/23 05:48 Hct 35.4 % (37-53) L 07/08/23 05:48 MCV 97.0 fl (82-101) 07/08/23 05:48 MCH 32.3 pg (27-33) 07/08/23 05:48 MCHC 33.3 g/dL (30-55) 07/08/23 05:48 RDW 13.4 % (12.1-15.1) 07/08/23 05:48 Plt Count 258 10^3/cmm (157-399) 07/08/23 05:48 MPV 9.3 fL (7.4-10.4) 07/08/23 05:48 Neut % (Auto) 86.7 % 07/08/23 05:48 Lymph % (Auto) 5.7 % 07/08/23 05:48 [place] % (Auto) 5.7 % 07/08/23 05:48 Eos % (Auto) 0.7 % 07/08/23 05:48 Baso % (Auto) 0.5 % 07/08/23 05:48 Neut # (Auto) 7.95 10^3/uL (1.8-7.7) H 07/08/23 05:48 Lymph # (Auto) 0.5 10^3/uL (0.8-4.8) L 07/08/23 05:48 [place] # (Auto) 0.5 10^3/uL (0.2-0.9) 07/08/23 05:48 Eos # (Auto) 0.1 10^3/uL (0.0-0.8) 07/08/23 05:48 Baso # (Auto) 0.1 10^3/uL (0.0-0.1) 07/08/23 05:48 Nucleated RBC % (auto) 0 % 07/08/23 05:48 Nucleated RBCs # 0.0 /100WBC 07/08/23 05:48 Sodium 135 mmol/L (136-145) L 07/08/23 05:48 Potassium 4.1 mmol/L (3.5-5.1) 07/08/23 05:48 Chloride 94 mmol/L (98-107) L 07/08/23 05:48 Carbon Dioxide 28 mmol/L (22-29) 07/08/23 05:48 Anion Gap 17.1 (5-19) 07/08/23 05:48 BUN 41 mg/dL (6-20) H 07/08/23 05:48 Creatinine 4.0 mg/dL (0.7-1.2) H 07/08/23 05:48 GFR Calculation 15.7 mL/min (90-130) L 07/08/23 05:48 Glucose 200 mg/dL (65-115) H 07/08/23 05:48 Calculated Osmolality 296 mOsm/kg (285-295) H 07/08/23 05:48 Lactic Acid 0.9 mmol/L (0.5-2.2) 07/08/23 05:48 Calcium 9.1 mg/dL (8.5-10.5) 07/08/23 05:48 Total Bilirubin 0.3 mg/dL (0.15-1.2) 07/08/23 05:48 AST 14 U/L (0-40) 07/08/23 05:48 ALT 13 U/L (0-41) 07/08/23 05:48 Alkaline Phosphatase 98 U/L (40-130) 07/08/23 05:48 Total Protein 6.8 g/dL (6.6-8.7) 07/08/23 05:48 Albumin 3.8 g/dL (3.5-5.2) 07/08/23 05:48 Globulin 3.0 g/dL (1.3-4.6) 07/08/23 05:48 Procalcitonin 0.18 ng/mL (0-0.5) 07/08/23 05:48 Coronavirus 229E (PCR) Not detected (NOT DETECT) 07/08/23 06:48 Influenza Type A Ag negative (Negative) 07/08/23 06:48 Influenza Type B Ag negative (Negative) 07/08/23 06:48 SARS-CoV-2 (PCR) Not detected (NOT DETECT) 07/08/23 06:48 Discharge Plan Discharge Patient Disposition: Home Clinical Impression: Pneumonia, Vascular port complication Condition: Stable Prescriptions: New levofloxacin 500 mg tablet 500 mg PO DAILY 7 Days Qty: 7 0RF No Action aspirin 81 mg tablet,delayed release (DR/EC) 81 mg PO QAM Eliquis 2.5 mg tablet 2.5 mg PO BID sevelamer carbonate 800 mg tablet 800 mg PO TID PRN (Reason: UNKNOWN) (DME) Dexcom G7 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 Misc See Rx Instructions .Route Qty: 1 0RF Rx Instructions: As directed carvedilol 3.125 mg tablet 3.125 mg PO DAILY (DME) Dexcom G7 Sensor Device See Rx Instructions .ROUTE .COMPLEX Qty: 9 1RF Dose Instruction: CHANGE every 10 DAYS Rx Instructions: CHANGE every 10 DAYS Trulicity 3 mg/0.5 mL pen injector 4.5 mg SUBCUT .weekly Rx Instructions: ON SATURDAY atorvastatin 40 mg tablet 40 mg PO QAM Qty: 90 2RF levothyroxine 88 mcg tablet 88 mcg PO QAM Tresiba FlexTouch U-200 200 unit/mL (3 mL) insulin pen 48 - 50 unit SUBCUT QAM fluoxetine 40 mg capsule 40 mg PO DAILY buspirone 10 mg tablet 10 mg PO BID gabapentin 100 mg capsule 100 mg PO BID bupropion HCl 300 mg tablet extended release 24 hr 300 mg PO QAM duloxetine 30 mg capsule,delayed release(DR/EC) 30 mg PO DAILY meclizine 12.5 mg tablet 12.5 mg PO BID PRN (Reason: dizziness) Qty: 14 0RF bumetanide 2 mg tablet See Rx Instructions .ROUTE .COMPLEX Rx Instructions: 2mg (1 tab)po qam and 4mg (2 tabs)in the evening tizanidine 2 mg Tablet 2 mg PO BID PRN (Reason: Muscle Spasm) promethazine 25 mg tablet 25 mg PO Q6H PRN (Reason: Nausea) (DME) Dexcom G7 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 Misc MISCELLANEOUS RenaPlex-D 800 mcg-12.5 mg -2,000 unit tablet 1 tab PO QPM diphenhydramine HCl [Benadryl Allergy] 25 mg Tablet 50 mg PO DAILY PRN (Reason: Allergy Symptoms) nitroglycerin [Nitrostat] 0.4 mg Tablet, Sublingual 0.4 mg SUBLINGUAL Q5M PRN (Reason: Chest Pain) Rx Instructions: do not exceed 3 doses per episode insulin lispro [Humalog KwikPen Insulin] 100 unit/mL insulin pen See Rx Instructions .ROUTE .COMPLEX Rx Instructions: sliding scale subcutaneously twice a day trazodone 100 mg tablet 300 mg PO BEDTIME ranolazine 500 mg tablet extended release 12 hr 500 mg PO BID clopidogrel 75 mg tablet 75 mg PO DAILY lorazepam 1 mg Tablet 1 mg PO Q8H isosorbide mononitrate 30 mg tablet extended release 24 hr See Rx Instructions .ROUTE .COMPLEX Qty: 45 0RF Rx Instructions: 15 mg daily, do not take on dialysis days Discharge Orders: Discharge ED (Routine); Ordered 07/08/23 Ordered By: Timo Mckoy Referrals: Kp Montanez DO [Primary Care Provider] - Discharge Diet: Usual diet Discharge Activity: Increase activity as tolerated Patient Instructions: Opioid Safety, Pain Management Activity Restrictions/Additional Instructions: Thank you for choosing [facility] for your healthcare needs today. Please realize this is an emergency room and that we are providing you with a medical screening exam and this may not be complete and all inclusive of all the testing and or work up that you may need to determine your ailment or severity of your illness. It is very important that you follow up as instructed or that you return to the Emergency Department should you have concerns or if your condition changes or worsens in any way. You were seen today for complaint of bleeding from the port access site. Bleeding was stopped with application of silver nitrate. If you have further bleeding return to the emergency room we can reevaluate. You are also noted on arrival to have a fever your flu and COVID were negative chest x-ray reports questionable early pneumonia recommend you start oral antibiotics. Cultures done earlier have not resulted yet. Coding Level of Care Code ED Gis Coordinator for Chg Fwd Documented by User: Timo Mckoy DO 07/08/23 15:07 HPI - General Adult 2 General: Chief complaint: General Medical Stated complaint: PORT BLEEDING Time Seen by Provider: 07/08/23 05:25 [facility] ED 2 PFS: Medical History ESRD (end stage renal disease) Uremic encephalopathy Generalized anxiety disorder ESRD (end stage renal disease) D-dimer, elevated Acute on chronic congestive heart failure History of pulmonary embolism Diabetes Acute kidney injury superimposed on CKD GERD (gastroesophageal reflux disease) Alcohol use disorder, moderate, in sustained remission Major depressive disorder, recurrent severe without psychotic features DVT (deep venous thrombosis) (~03/2020) Proximal left subclavian, basilic and brachial veins, started eliquis this stay, felt present prior to admission Chronic kidney disease -baseline Cr appears to be around 1.5 Chronic systolic heart failure Atherosclerotic heart disease of [place] coronary artery with other forms of angina pectoris hx of CAD with prior stenting of proximal LAD, LCx, RCA Ischemic cardiomyopathy Onychodystrophy Chronic anticoagulation Eliquis Osteoarthritis of spine Hypothyroidism Hypertension Hyperlipidemia Diabetes Depression Anemia Foot drop, left H/O acute myocardial infarction H/O deep venous thrombosis developed compartment syndrome Surgical History Peritoneal dialysis catheter in situ (06/15/21) History of appendectomy 1995 History of excision of mass 06/08/2019: Subcutaneous mass on back History of removal of Port-a-Cath Port-A-Cath in place H/O vasectomy Hx of cholecystectomy History of coronary artery stent placement 5x H/O skin graft History of inguinal hernia repair, bilateral 2000 H/O removal of testicle left H/O colonoscopy (11/14/20) 08/2015 H/O esophagogastroduodenoscopy (11/14/20) 08/2015 Family History Grandfather Cancer skin cancer Parkinson disease Brother Hypertension Father Heart disease Mother Hypertension Stroke Aneurysm Grandmother Aneurysm Other Crohn's disease Denies family history of Anesthesia complication Bleeding disorder Social History Smoking and tobacco/nicotine status: never used tobacco/nicotine Second hand smoke exposure: No Alcohol intake: former Year of sobriety/quit date alcohol: 2015 Former alcohol use details: Only holidays Substance/Drug Use: never Lives independently: Yes Household members: significant other Marital status: Single Current occupational status: disabled Course 2 Vital Signs: Vital signs: Vital Signs Temperature 98.6 F 07/08/23 08:00 Pulse Rate 93 07/08/23 06:51 Respiratory Rate 18 07/08/23 06:51 Blood Pressure 128/75 07/08/23 08:00 Pulse Oximetry 94 07/08/23 08:00 Oxygen Delivery Me thod Room Air 07/08/23 08:00 MDM - General Adult Medical Decision Making Small amount of continuous oozing from the access site from port in the left upper chest this was treated with silver nitrate which patient tolerated well and bleeding stopped. He is reporting shortness of breath and productive cough we did try to get a sputum sample from we will go and start him on a course of oral antibiotics and steroids use albuterol as needed follow-up if not improving labs imaging and EKG reviewed as found on the chart Medical Records I reviewed the patient's medical records. Lab Data I reviewed the patient's lab results. 07/08/23 05:48 07/08/23 05:48 Radiology Impressions Chest X-Ray 07/08/23 05:35 IMPRESSION: Stable strandy opacities present left lower hemithorax may represent atelectasis although left basilar pneumonia entirely. This finding is similar to that seen on yesterday's examination. Laboratory Results WBC 9.16 10^3/uL (3.29-11.43) 07/08/23 05:48 RBC 3.65 10^6/uL (3.85-5.65) L 07/08/23 05:48 Hgb 11.80 g/dL (11.27-16.99) 07/08/23 05:48 Hct 35.4 % (37-53) L 07/08/23 05:48 MCV 97.0 fl (82-101) 07/08/23 05:48 MCH 32.3 pg (27-33) 07/08/23 05:48 MCHC 33.3 g/dL (30-55) 07/08/23 05:48 RDW 13.4 % (12.1-15.1) 07/08/23 05:48 Plt Count 258 10^3/cmm (157-399) 07/08/23 05:48 MPV 9.3 fL (7.4-10.4) 07/08/23 05:48 Neut % (Auto) 86.7 % 07/08/23 05:48 Lymph % (Auto) 5.7 % 07/08/23 05:48 [place] % (Auto) 5.7 % 07/08/23 05:48 Eos % (Auto) 0.7 % 07/08/23 05:48 Baso % (Auto) 0.5 % 07/08/23 05:48 Neut # (Auto) 7.95 10^3/uL (1.8-7.7) H 07/08/23 05:48 Lymph # (Auto) 0.5 10^3/uL (0.8-4.8) L 07/08/23 05:48 [place] # (Auto) 0.5 10^3/uL (0.2-0.9) 07/08/23 05:48 Eos # (Auto) 0.1 10^3/uL (0.0-0.8) 07/08/23 05:48 Baso # (Auto) 0.1 10^3/uL (0.0-0.1) 07/08/23 05:48 Nucleated RBC % (auto) 0 % 07/08/23 05:48 Nucleated RBCs # 0.0 /100WBC 07/08/23 05:48 Sodium 135 mmol/L (136-145) L 07/08/23 05:48 Potassium 4.1 mmol/L (3.5-5.1) 07/08/23 05:48 Chloride 94 mmol/L (98-107) L 07/08/23 05:48 Carbon Dioxide 28 mmol/L (22-29) 07/08/23 05:48 Anion Gap 17.1 (5-19) 07/08/23 05:48 BUN 41 mg/dL (6-20) H 07/08/23 05:48 Creatinine 4.0 mg/dL (0.7-1.2) H 07/08/23 05:48 GFR Calculation 15.7 mL/min (90-130) L 07/08/23 05:48 Glucose 200 mg/dL (65-115) H 07/08/23 05:48 Calculated Osmolality 296 mOsm/kg (285-295) H 07/08/23 05:48 Lactic Acid 0.9 mmol/L (0.5-2.2) 07/08/23 05:48 Calcium 9.1 mg/dL (8.5-10.5) 07/08/23 05:48 Total Bilirubin 0.3 mg/dL (0.15-1.2) 07/08/23 05:48 AST 14 U/L (0-40) 07/08/23 05:48 ALT 13 U/L (0-41) 07/08/23 05:48 Alkaline Phosphatase 98 U/L (40-130) 07/08/23 05:48 Total Protein 6.8 g/dL (6.6-8.7) 07/08/23 05:48 Albumin 3.8 g/dL (3.5-5.2) 07/08/23 05:48 Globulin 3.0 g/dL (1.3-4.6) 07/08/23 05:48 Procalcitonin 0.18 ng/mL (0-0.5) 07/08/23 05:48 Coronavirus 229E (PCR) Not detected (NOT DETECT) 07/08/23 06:48 Influenza Type A Ag negative (Negative) 07/08/23 06:48 Influenza Type B Ag negative (Negative) 07/08/23 06:48 SARS-CoV-2 (PCR) Not detected (NOT DETECT) 07/08/23 06:48 All radiology interpretation(s) finalized by discharge Discharge Plan Discharge Patient Disposition: Home Clinical Impression: Pneumonia, Vascular port complication Condition: Stable Prescriptions: New levofloxacin 500 mg tablet 500 mg PO DAILY 7 Days Qty: 7 0RF No Action aspirin 81 mg tablet,delayed release (DR/EC) 81 mg PO QAM Eliquis 2.5 mg tablet 2.5 mg PO BID sevelamer carbonate 800 mg tablet 800 mg PO TID PRN (Reason: UNKNOWN) (DME) Dexcom G7 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 Misc See Rx Instructions .Route Qty: 1 0RF Rx Instructions: As directed carvedilol 3.125 mg tablet 3.125 mg PO DAILY (DME) Dexcom G7 Sensor Device See Rx Instructions .ROUTE .COMPLEX Qty: 9 1RF Dose Instruction: CHANGE every 10 DAYS Rx Instructions: CHANGE every 10 DAYS Trulicity 3 mg/0.5 mL pen injector 4.5 mg SUBCUT .weekly Rx Instructions: ON SATURDAY atorvastatin 40 mg tablet 40 mg PO QAM Qty: 90 2RF levothyroxine 88 mcg tablet 88 mcg PO QAM Tresiba FlexTouch U-200 200 unit/mL (3 mL) insulin pen 48 - 50 unit SUBCUT QAM fluoxetine 40 mg capsule 40 mg PO DAILY buspirone 10 mg tablet 10 mg PO BID gabapentin 100 mg capsule 100 mg PO BID bupropion HCl 300 mg tablet extended release 24 hr 300 mg PO QAM duloxetine 30 mg capsule,delayed release(DR/EC) 30 mg PO DAILY meclizine 12.5 mg tablet 12.5 mg PO BID PRN (Reason: dizziness) Qty: 14 0RF bumetanide 2 mg tablet See Rx Instructions .ROUTE .COMPLEX Rx Instructions: 2mg (1 tab)po qam and 4mg (2 tabs)in the evening tizanidine 2 mg Tablet 2 mg PO BID PRN (Reason: Muscle Spasm) promethazine 25 mg tablet 25 mg PO Q6H PRN (Reason: Nausea) (DME) Dexcom G7 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 Misc MISCELLANEOUS RenaPlex-D 800 mcg-12.5 mg -2,000 unit tablet 1 tab PO QPM diphenhydramine HCl [Benadryl Allergy] 25 mg Tablet 50 mg PO DAILY PRN (Reason: Allergy Symptoms) nitroglycerin [Nitrostat] 0.4 mg Tablet, Sublingual 0.4 mg SUBLINGUAL Q5M PRN (Reason: Chest Pain) Rx Instructions: do not exceed 3 doses per episode insulin lispro [Humalog KwikPen Insulin] 100 unit/mL insulin pen See Rx Instructions .ROUTE .COMPLEX Rx Instructions: sliding scale subcutaneously twice a day trazodone 100 mg tablet 300 mg PO BEDTIME ranolazine 500 mg tablet extended release 12 hr 500 mg PO BID clopidogrel 75 mg tablet 75 mg PO DAILY lorazepam 1 mg Tablet 1 mg PO Q8H isosorbide mononitrate 30 mg tablet extended release 24 hr See Rx Instructions .ROUTE .COMPLEX Qty: 45 0RF Rx Instructions: 15 mg daily, do not take on dialysis days Discharge Orders: Discharge ED (Routine); Ordered 07/08/23 Ordered By: Timo Mckoy Referrals: Kp Montanez DO [Primary Care Provider] - Discharge Diet: Usual diet Discharge Activity: Increase activity as tolerated Patient Instructions: Opioid Safety, Pain Management Activity Restrictions/Additional Instructions: Thank you for choosing [facility] for your healthcare needs today. Please realize this is an emergency room and that we are providing you with a medical screening exam and this may not be complete and all inclusive of all the testing and or work up that you may need to determine your ailment or severity of your illness. It is very important that you follow up as instructed or that you return to the Emergency Department should you have concerns or if your condition changes or worsens in any way. You were seen today for complaint of bleeding from the port access site. Bleeding was stopped with application of silver nitrate. If you have further bleeding return to the emergency room we can reevaluate. You are also noted on arrival to have a fever your flu and COVID were negative chest x-ray reports questionable early pneumonia recommend you start oral antibiotics. Cultures done earlier have not resulted yet. Coding Level of Care Code ED Gis Coordinator for Aaron Irene
[2023-07-08 05:48] VITALS: BP 179/92; PULSE 91; RESP 16; O2SAT 96
[2023-07-08] MEDS: acetaminophen 325 mg Tablet 650 MG PO (05:50)
[2023-07-08 06:01] LABS: Basophils # 0.1 10^3/uL (0.0-0.1); Basophils % 0.5 %; Eosinophils # 0.1 10^3/uL (0.0-0.8); Eosinophils % 0.7 %; Hematocrit 35.4 % (37-53); Lymphocytes # 0.5 10^3/uL (0.8-4.8); Lymphocytes % 5.7 %; Mean Corpuscular HGB Conc 33.3 g/dL (30-55); Mean Corpuscular Hemoglobin 32.3 pg (27-33); Mean Platelet Volume 9.3 fL (7.4-10.4); Monocytes # 0.5 10^3/uL (0.2-0.9); Monocytes % 5.7 %; Neutrophils # 7.95 10^3/uL (1.8-7.7); Neutrophils % 86.7 %; Nucleated Red Blood Cells % 0 %; Platelet Count 258 10^3/cmm (157-399); Red Blood Count 3.65 10^6/uL (3.85-5.65); Red Cell Distribution Width 13.4 % (12.1-15.1); White Blood Count 9.16 10^3/uL (3.29-11.43)
[2023-07-08 06:15] LABS: Alanine Aminotransferase 13 U/L (0-41); Albumin Level 3.8 g/dL (3.5-5.2); Alkaline Phosphatase 98 U/L (40-130); Anion Gap 17.1 (5-19); Aspartate Amino Transferase 14 U/L (0-40); Blood Urea Nitrogen 41 mg/dL (6-20); Calcium 9.1 mg/dL (8.5-10.5); Carbon Dioxide 28 mmol/L (22-29); Chloride 94 mmol/L (98-107); Glomerular Filtration Rate 15.7 mL/min (90-130); Glucose 200 mg/dL (65-115); Osmolality Calculated 296 mOsm/kg (285-295); Potassium 4.1 mmol/L (3.5-5.1); Sodium 135 mmol/L (136-145); Total Bilirubin 0.3 mg/dL (0.15-1.2); Total Protein 6.8 g/dL (6.6-8.7)
[2023-07-08 06:16] LABS: Lactic Sepsis W/Reflex 0.9 mmol/L (0.5-2.2)
[2023-07-08 06:51] VITALS: BP 160/71; PULSE 93; RESP 18; O2SAT 94
[2023-07-08 07:04] LABS: Procalcitonin 0.18 ng/mL (0-0.5)
--- NOTE | 2023-07-08 07:23 | PC.NURSE ---
Spoke with patient regarding urine sample, patient states that he normally makes some urine even with dialysis but for the last week he has not been making urine. Patient is aware that we have asked for a sample and he states he will try but he is unsure if he will be able to produce any.
[2023-07-08 07:26] LABS: Influenza A by IFA negative (Negative); Influenza B by IFA negative (Negative)
[2023-07-08 07:30] VITALS: BP 130/69; O2SAT 93
[2023-07-08 08:00] VITALS: BP 128/75; TEMP 37; O2SAT 94
[2023-07-08 08:50] LABS: Adenovirus Not Detected (NOT DETECT); Chlamydia Pneumoniae Not Detected (NOT DETECT); Coronavirus 229E,HKU1,NL63,OC4 Not Detected (NOT DETECT); Human Metapneumovirus Not Detected (NOT DETECT); Human Rhinovirus/Enterovirus Not Detected (NOT DETECT); Influenza A Not Detected (NOT DETECT); Influenza A H1 Not Detected (NOT DETECT); Influenza A H1-2009 Not Detected (NOT DETECT); Influenza A H3 Not Detected (NOT DETECT); Influenza B Not Detected (NOT DETECT); Mycoplasma Pneumoniae Not Detected (NOT DETECT); Parainfluenza Virus Type 1 Not Detected (NOT DETECT); Parainfluenza Virus Type 2 Not Detected (NOT DETECT); Parainfluenza Virus Type 3 Not Detected (NOT DETECT); Parainfluenza Virus Type 4 Not Detected (NOT DETECT); Respiratory Syncytial Virus A Not Detected (NOT DETECT); Respiratory Syncytial Virus B Not Detected (NOT DETECT); SARS-COV-2 Not Detected (NOT DETECT)
[2023-07-08] MEDS: silver nitrate applicator 1 EACH TOPICAL (09:22)
== END 2023-07-08 09:34 | disposition home or self-care (01) ==
PROVIDERS: Emergency Medicine; Emergency Provider Family Medicine; PCP Internal Medicine
DX: J18.9 Pneumonia, unspecified organism (principal); T82.838A Hemorrhage due to vascular prosthetic devices, implants and grafts, initial encounter; Y71.1 Therapeutic (nonsurgical) and rehabilitative cardiovascular devices associated with adverse incidents; Z79.01 Long term (current) use of anticoagulants; Z79.82 Long term (current) use of aspirin; Z79.85 Long-term (current) use of injectable non-insulin antidiabetic drugs; Z79.02 Long term (current) use of antithrombotics/antiplatelets; Z79.4 Long term (current) use of insulin; Z11.52 Encounter for screening for COVID-19; E11.22 Type 2 diabetes mellitus with diabetic chronic kidney disease; I13.2 Hypertensive heart and chronic kidney disease with heart failure and with stage 5 chronic kidney disease, or end stage renal disease; I50.9 Heart failure, unspecified; N18.6 End stage renal disease; Z99.2 Dependence on renal dialysis; I25.118 Atherosclerotic heart disease of native coronary artery with other forms of angina pectoris; I25.5 Ischemic cardiomyopathy; E78.5 Hyperlipidemia, unspecified; I25.2 Old myocardial infarction
CPT/HCPCS: 71045; 80053; 83605; 84145; 85025; 87635; 87804; 99284

== ENCOUNTER → 2023-07-25 13:44 | Outpatient (BNVA) | payer MEDICARE, MEDICAID, SELFPAY | PROVIDERS: PCP Internal Medicine; Visit Provider Podiatrist Foot & Ankle Surgery | DX: E11.42 Type 2 diabetes mellitus with diabetic polyneuropathy (principal); R23.4 Changes in skin texture; M21.372 Foot drop, left foot; I73.9 Peripheral vascular disease, unspecified; M21.41 Flat foot [pes planus] (acquired), right foot; M21.42 Flat foot [pes planus] (acquired), left foot; Z79.4 Long term (current) use of insulin | CPT/HCPCS: 99213 ==

== ENCOUNTER 2023-08-07 09:19 | Oncology outpatient (recurring) (ONCR) | payer MEDICARE, MEDICAID, SELFPAY ==
[2023-08-07 10:38] LABS: Creatinine Urine, Random 71 mg/dL (39-259); Estmated Average Glucose 143; Hemoglobin A1C 6.6 % (4.0-6.0)
[2023-08-07 10:39] LABS: Alanine Aminotransferase 11 U/L (0-41); Albumin Level 3.6 g/dL (3.5-5.2); Alkaline Phosphatase 78 U/L (40-130); Anion Gap 13.9 (5-19); Aspartate Amino Transferase 21 U/L (0-40); Blood Urea Nitrogen 46 mg/dL (6-20); Calcium 8.2 mg/dL (8.5-10.5); Carbon Dioxide 27 mmol/L (22-29); Chloride 103 mmol/L (98-107); Chol HDL Ratio 4.33 mg/dL (1.0-5.00); Cholesterol 173 mg/dL (0-200); Free T4 Free Thyroxine 0.99 ng/dL (0.82-1.77); Globulin 2.6 g/dL (1.3-4.6); Glomerular Filtration Rate 16.6 mL/min (90-130); Glucose 131 mg/dL (65-115); HDL Cholesterol 40 mg/dL (60-100); LDL Cholesterol Calculated 99 mg/dL (50-129); LDL HDL Ratio 2.48 RATIO (0.00-3.22); Osmolality Calculated 304 mOsm/kg (285-295); Potassium 3.9 mmol/L (3.5-5.1); Sodium 140 mmol/L (136-145); Thyroid Stimulating Hormone 3.59 uIU/mL (0.27-4.20); Total Bilirubin 0.2 mg/dL (0.15-1.2); Total Protein 6.2 g/dL (6.6-8.7); Triglycerides 172 mg/dL (0-150)
[2023-08-07 11:04] LABS: Microalbum Creatinine Ratio Ur 930 mg/dL (0-20); Microalbumin Random Urine 66 ug/dL (0-20)
== END 2023-08-18 23:59 | disposition home or self-care (01) ==
PROVIDERS: Internal Medicine; PCP Internal Medicine; Visit Provider Internal Medicine
DX: E11.42 Type 2 diabetes mellitus with diabetic polyneuropathy; E03.9 Hypothyroidism, unspecified; E78.5 Hyperlipidemia, unspecified; R60.1 Generalized edema; I10 Essential (primary) hypertension; Z95.828 Presence of other vascular implants and grafts; Z53.9 Procedure and treatment not carried out, unspecified reason
CPT/HCPCS: 36591; 80053; 80061; 82044; 83036; 84439; 84443

== ENCOUNTER → 2023-08-14 07:41 | Outpatient (BNVA) | payer MEDICARE, MEDICAID, SELFPAY | PROVIDERS: PCP Internal Medicine; Visit Provider Internal Medicine | DX: E11.42 Type 2 diabetes mellitus with diabetic polyneuropathy (principal); E03.9 Hypothyroidism, unspecified; E78.5 Hyperlipidemia, unspecified; R60.1 Generalized edema; Z79.4 Long term (current) use of insulin; Z79.85 Long-term (current) use of injectable non-insulin antidiabetic drugs; Z79.890 Hormone replacement therapy | CPT/HCPCS: 99214 ==

== ENCOUNTER → 2023-08-28 10:38 | Outpatient (BNVA) | payer MEDICARE, MEDICAID, SELFPAY | PROVIDERS: PCP Internal Medicine; Visit Provider Podiatrist Foot & Ankle Surgery | DX: E11.42 Type 2 diabetes mellitus with diabetic polyneuropathy (principal); M21.372 Foot drop, left foot; I73.9 Peripheral vascular disease, unspecified; M21.41 Flat foot [pes planus] (acquired), right foot; M21.42 Flat foot [pes planus] (acquired), left foot; L60.3 Nail dystrophy; Z18.81 Retained glass fragments | CPT/HCPCS: 11721 ==

== ENCOUNTER 2023-09-23 09:42 | Oncology outpatient (recurring) (ONCR) | payer MEDICARE, MEDICAID, SELFPAY | END 2023-10-18 23:59 | disposition home or self-care (01) | PROVIDERS: PCP Internal Medicine; Visit Provider Internal Medicine | DX: Z45.2 Encounter for adjustment and management of vascular access device (principal) ==

== ENCOUNTER 2023-09-29 17:21 | Emergency (ER) | payer MEDICARE, MEDICAID, SELFPAY ==
[2023-09-29 17:23] VITALS: BP 171/74; PULSE 79; RESP 16; TEMP 36.7; O2SAT 92; BMI 38.4
--- NOTE | 2023-09-29 17:26 | ECG_ITS ---
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 Measurements Intervals Queen Rate: 79 P: 38 AR: 185 QRS: 57 QRSD: 112 T: 67 QT: 388 QTc: 445 Interpretive Statements SINUS RHYTHM POSSIBLE ANTERIOR MYOCARDIAL INFARCTION , OF INDETERMINATE AGE [30 ms Q WAVE IN V3/V4, OR R < 0.2 mV IN V4] INTERPRETATION BASED ON A DEFAULT AGE OF [address] changes Compared to ECG 07/07/2023 11:52:27 First degree AV block no longer present Myocardial infarct finding still present Electronically Signed On 09-29-2023 22:30:49 CDT by Karen Choi M.D. [id number]
--- NOTE | 2023-09-29 17:34 | W.ED.CHESTPA ---
HPI - Chest Pain General: Chief Complaint: Chest Pain Stated Complaint: CHEST PAIN Time Seen by Provider: 09/29/23 17:31 Source: patient and family Mode of arrival: EMS Limitations: no limitations History of Present Illness: This patient was transported from his home by EMS. Patient states he did not feel well earlier today just felt kind of out of sorts and then later on this afternoon developed some chest heaviness that seem to radiate into his left shoulder and his left neck. He has a known history of coronary disease had stents placed within the last year. He also has a history of pulmonary emboli. He has a history of chronic kidney disease devious congestive heart failure and according to him he had cardiac tamponade that required a median sternotomy. States he has been faithful to all his medications to include his anticoagulant antiplatelet medications. He denies any recent illness fevers chills cough nausea vomiting or diarrhea. MD complaint: chest heaviness Prior episodes: Yes Onset: during rest Pain radiation: left shoulder Severity: mild Quality: heaviness Associated symptoms: Deny abdominal pain, dyspnea, fever(s), palpitations or vomiting Treatment prior to arrival: aspirin Review of Systems Const: Reports: body aches; Denies: fever(s) or chills Eyes: Denies: change in vision ENMT: Denies: odynophagia, nasal discharge or nasal congestion Card: Reports: chest pain; Denies: palpitations, irregular heart rhythm or edema Resp: Denies: dyspnea, productive cough or non-productive cough GI: Denies: abdominal pain, vomiting or diarrhea : Denies: flank pain, difficulty urinating or dysuria Musc: Denies: neck pain, back pain, extremity pain or extremity swelling Skin/Breast: Denies: rash Neuro: Denies: headache(s), numbness in extremities or weakness in extremities [place]/Lymph: Reports: easy bruising PFS ED PFSH: Medical History ESRD (end stage renal disease) Uremic encephalopathy Generalized anxiety disorder ESRD (end stage renal disease) D-dimer, elevated Acute on chronic congestive heart failure History of pulmonary embolism Diabetes Acute kidney injury superimposed on CKD GERD (gastroesophageal reflux disease) Alcohol use disorder, moderate, in sustained remission Major depressive disorder, recurrent severe without psychotic features DVT (deep venous thrombosis) (~03/2020) Proximal left subclavian, basilic and brachial veins, started eliquis this stay, felt present prior to admission Chronic kidney disease -baseline Cr appears to be around 1.5 Chronic systolic heart failure Atherosclerotic heart disease of [place] coronary artery with other forms of angina pectoris hx of CAD with prior stenting of proximal LAD, LCx, RCA Ischemic cardiomyopathy Onychodystrophy Chronic anticoagulation Eliquis Osteoarthritis of spine Hypothyroidism Hypertension Hyperlipidemia Diabetes Depression Anemia Foot drop, left H/O acute myocardial infarction H/O deep venous thrombosis developed compartment syndrome Surgical History Peritoneal dialysis catheter in situ (06/15/21) History of appendectomy 1995 History of excision of mass 06/08/2019: Subcutaneous mass on back History of removal of Port-a-Cath Port-A-Cath in place H/O vasectomy Hx of cholecystectomy History of coronary artery stent placement 5x H/O skin graft History of inguinal hernia repair, bilateral 2000 H/O removal of testicle left H/O colonoscopy (11/14/20) 08/2015 H/O esophagogastroduodenoscopy (11/14/20) 08/2015 Family History Grandfather Cancer skin cancer Parkinson disease Brother Hypertension Father Heart disease Mother Hypertension Stroke Aneurysm Grandmother Aneurysm Other Crohn's disease Denies family history of Anesthesia complication Bleeding disorder Social History Smoking and tobacco/nicotine status: never used tobacco/nicotine Second hand smoke exposure: No Alcohol intake: former Year of sobriety/quit date alcohol: 2015 Former alcohol use details: Only holidays Substance/Drug Use: never Lives independently: Yes Household members: significant other Marital status: Single Current occupational status: disabled Physical Exam Narrative: EXAM NARRATIVE: Patient is alert makes good eye contact answers questions appropriately. Appears to be comfortable at this time. Const: COMMON NORMALS: no acute distress, patient oriented x3 and alert GENERAL APPEARANCE: cooperative NUTRITIONAL APPEARANCE: overweight HENMT: COMMON NORMALS: normocephalic, Normal nasal mucous membranes and turbinates present, moist oral mucous membranes and oropharynx normal HEAD & SCALP: normocephalic NOSE: Normal nasal mucous membranes and turbinates present Eye: COMMON NORMALS: Equal, round and reactive pupils present, EOMs intact bilaterally and conjunctivae normal CONJUNCTIVA: Yes conjunctivae normal PUPIL: Yes Equal, round and reactive pupils present Neck/C-Spine: COMMON NORMALS: full ROM, no lymphadenopathy, no meningeal signs and no JVD Chest: COMMONS NORMALS: normal inspection of the chest and normal palpation of entire chest wall CHEST: Yes Surgical scars present (Chest) (Midline sternotomy scar) Resp: COMMON NORMALS: normal respiratory effort, No use of accessory muscles and clear to auscultation bilaterally EFFORT & INSPECTION: Yes able to speak in complete sentences AUSCULTATION: clear to auscultation bilaterally Cardio: COMMON NORMALS: no JVD, regular rate, regular rhythm, No murmurs present (Cardio) and Peripheral pulses 2+ throughout RATE: regular rate RHYTHM: regular rhythm PERIPHERAL PULSES: Peripheral pulses 2+ throughout GI: COMMON NORMALS: Normal to inspection, nondistended, normoactive bowel sounds present, Soft to palpation and non-tender PALPATION: Yes Soft to palpation : COMMON NORMALS: Yes no CVA tenderness BLADDER/KIDNEY EXAM: Yes no CVA tenderness Back/Pelvis: COMMON NORMALS: no CVA tenderness, thoracic and lumbar spine normal to inspection and no thoracic nor lumbar tenderness Extremity: COMMON NORMALS: full ROM, capillary refill normal, no clubbing, cyanosis or edema, no calf tenderness and no pedal edema Neuro: COMMON NORMALS: patient oriented x3, moves all extremities, no focal motor deficits and no sensory deficits noted SENSORIUM/ORIENTATION: Yes alert MENINGEAL SIGNS: Yes no meningeal signs CRANIAL NERVES: Yes CN normal except as noted Psych: COMMON NORMALS: mental status grossly normal Skin: COMMON NORMALS: no rashes or lesions noted and turgor normal GENERAL SKIN EXAM: no rashes or lesions noted and turgor normal Course Reevaluation(s): Reevaluation #1: Patient was reevaluated. He states he still feels somewhat yucky and not back to his normal self but he certainly feels better than he did when he arrived. No new or focal exam findings on examination he is alert conversant with normal vital signs. We discussed current findings their implications and that likely his urinary tract infection is contributing to his malaise and other subjective feelings and that we can give him the option of continued observation treatment or to attempt treatment at home and he chose the latter option. We discussed return precautions as well. Both he and his spouse voiced understanding. Time: 22:06 Vital Signs: Vital signs: Vital Signs Temperature 98.1 F 09/29/23 17:23 Pulse Rate 69 09/29/23 21:52 Respiratory Rate 15 09/29/23 21:52 Blood Pressure 163/82 09/29/23 21:52 Pulse Oximetry 94 09/29/23 21:52 Oxygen Delivery Me thod Nasal Cannula 09/29/23 21:52 Oxygen Flow Rate 1 09/29/23 21:52 MDM - Chest Pain Medical Decision Making Presented with 6 several day history of malaise not feeling well other specific symptoms there was some question of whether he had some chest at presentation with EMS. Has a longstanding history of end-stage renal disease, thromboembolic disease, cardiomyopathy other comorbid conditions. His clinical examination was unrevealing for any obvious stigmata of serious disease. Workup was initiated to include chest x-ray laboratories EKG biomarkers etc. Of note was that his urinalysis was abnormal and indicative of likely urinary tract infection for which she has had a history of. He also had an elevated troponin level but serial EKGs were unchanged and reassuring. Likely his elevated troponin is not indicative of ongoing ischemia but consistent with his end-stage renal disease and chronic troponin leaking. He was given the benefit of fluids and antibiotics in the emergency department and felt some improved and desired to be discharged to continue care at home with return precautions. He is stable without any evidence of an ongoing emergency medical condition. Medical Records I reviewed the patient's medical records. Prior elevated troponin levels without any evidence of AMI ACS etc. Lab Data I reviewed the patient's lab results. 09/29/23 20:08 09/29/23 20:08 Radiology Impressions Chest X-Ray 09/29/23 17:45 IMPRESSION: No acute interval changes. Laboratory Results WBC 7.57 10^3/uL (3.29-11.43) 09/29/23 20:08 RBC 3.57 10^6/uL (3.85-5.65) L 09/29/23 20:08 Hgb 12.00 g/dL (11.27-16.99) 09/29/23 20:08 Hct 34.9 % (37-53) L 09/29/23 20:08 MCV 97.8 fl (82-101) 09/29/23 20:08 MCH 33.6 pg (27-33) H 09/29/23 20:08 MCHC 34.4 g/dL (30-55) 09/29/23 20:08 RDW 14.2 % (12.1-15.1) 09/29/23 20:08 Plt Count 219 10^3/cmm (157-399) 09/29/23 20:08 MPV 8.7 fL (7.4-10.4) 09/29/23 20:08 Neut % (Auto) 59.7 % 09/29/23 20:08 Lymph % (Auto) 27.3 % 09/29/23 20:08 [place] % (Auto) 9.4 % 09/29/23 20:08 Eos % (Auto) 2.1 % 09/29/23 20:08 Baso % (Auto) 1.1 % 09/29/23 20:08 Neut # (Auto) 4.52 10^3/uL (1.8-7.7) 09/29/23 20:08 Lymph # (Auto) 2.1 10^3/uL (0.8-4.8) 09/29/23 20:08 [place] # (Auto) 0.7 10^3/uL (0.2-0.9) 09/29/23 20:08 Eos # (Auto) 0.2 10^3/uL (0.0-0.8) 09/29/23 20:08 Baso # (Auto) 0.1 10^3/uL (0.0-0.1) 09/29/23 20:08 Nucleated RBC % (auto) 0 % 09/29/23 20:08 Nucleated RBCs # 0.0 /100WBC 09/29/23 20:08 Sodium 137 mmol/L (136-145) 09/29/23 20:08 Potassium 3.6 mmol/L (3.5-5.1) 09/29/23 20:08 Chloride 97 mmol/L (98-107) L 09/29/23 20:08 Carbon Dioxide 31 mmol/L (22-29) H 09/29/23 20:08 Anion Gap 12.6 (5-19) 09/29/23 20:08 BUN 22 mg/dL (6-20) H 09/29/23 20:08 Creatinine 3.6 mg/dL (0.7-1.2) H 09/29/23 20:08 GFR Calculation 17.7 mL/min (90-130) L 09/29/23 20:08 Glucose 103 mg/dL (65-115) 09/29/23 20:08 Calculated Osmolality 288 mOsm/kg (285-295) 09/29/23 20:08 Calcium 8.9 mg/dL (8.5-10.5) 09/29/23 20:08 Total Bilirubin 0.6 mg/dL (0.15-1.2) 09/29/23 20:08 AST 16 U/L (0-40) 09/29/23 20:08 ALT 12 U/L (0-41) 09/29/23 20:08 Alkaline Phosphatase 77 U/L (40-130) 09/29/23 20:08 Troponin T Baseline 66 ng/L (0-15) H 09/29/23 20:08 NT-Pro-B Natriuret Pep 2741 pg/mL (0-125) H 09/29/23 20:08 Total Protein 6.3 g/dL (6.6-8.7) L 09/29/23 20:08 Albumin 4.1 g/dL (3.5-5.2) 09/29/23 20:08 Globulin 2.2 g/dL (1.3-4.6) 09/29/23 20:08 Urine Color Yellow (Yellow) 09/29/23 20:17 Urine Appearance Clear (CLEAR) 09/29/23 20:17 Urine pH 5 (5-7) 09/29/23 20:17 Ur Specific [place] 1.015 (1.005-1.030) 09/29/23 20:17 Urine Protein 2+ (Negative) H 09/29/23 20:17 Urine Glucose (UA) Norm (Normal) 09/29/23 20:17 Urine Ketones 1+ (Negative) H 09/29/23 20:17 Urine Blood Neg (Negative) 09/29/23 20:17 Urine Nitrate Negative (Negative) 09/29/23 20:17 Urine Bilirubin 1+ (Negative) H 09/29/23 20:17 Urine Urobilinogen Neg mg/dL (Negative) 09/29/23 20:17 Ur Leukocyte Esterase 1+ (Negative) H 09/29/23 20:17 Urine RBC 0-4 /hpf (0-2) H 09/29/23 20:17 Urine WBC 15-25 /hpf (0-5) H 09/29/23 20:17 Ur Squamous Epith Cells 0-4 /hpf (0-5) H 09/29/23 20:17 Amorphous Sediment Trace /hpf 09/29/23 20:17 Urine Bacteria 1+ /hpf (NONE) H 09/29/23 20:17 Hyaline Casts 0-4 /lpf H 09/29/23 20:17 Urine Mucus 2+ /hpf 09/29/23 20:17 All radiology interpretation(s) finalized by discharge EKG Data EKG 1: I personally reviewed and interpreted this EKG as follows: Interpretation: Initial EKG this visit revealed reveals a ventricular rate of 79 bpm. Has a normal SC interval, QRS duration, corrected QT interval. Normal axis. Diminished R wave noted in the precordial leads suggestive of possible remote anterior wall [place]. No acute ST-T wave changes noted. This EKG today is unchanged from prior tracings reviewed in system EKG 2: I personally reviewed and interpreted this EKG as follows: Interpretation: Second EKG this visit revealed a ventricular rate of 73 bpm. Consistent with normal sinus rhythm. Normal SC interval, QRS duration, corrected QT interval and normal axis. This second EKG has no evidence of acute ST-T wave changes and has similar loss of R wave anteriorly but no acute changes. Essentially unchanged. Discharge Plan Discharge Patient Disposition: Home Clinical Impression: Elevated troponin Urinary tract infection Qualifiers: Urinary tract infection type: site unspecified Hematuria presence: without hematuria Qualified Code(s): N39.0 - Urinary tract infection, site not specified Chronic renal failure Qualifiers: Chronic kidney disease stage: unspecified stage Qualified Code(s): N18.9 - Chronic kidney disease, unspecified Condition: Stable Prescriptions: New cephalexin 500 mg capsule 500 mg PO QID 10 Days Qty: 40 0RF No Action aspirin 81 mg tablet,delayed release (DR/EC) 81 mg PO QAM Eliquis 2.5 mg tablet 2.5 mg PO BID sevelamer carbonate 800 mg tablet 800 mg PO TID PRN (Reason: UNKNOWN) carvedilol 3.125 mg tablet 3.125 mg PO DAILY (DME) [employer] G7 Sensor Device See Rx Instructions .ROUTE .COMPLEX Qty: 9 1RF Dose Instruction: CHANGE every 10 DAYS Rx Instructions: CHANGE every 10 DAYS mupirocin 2 % ointment 1 applic topical TID Qty: 15 0RF Rx Instructions: apply to wound TID and as needed with dressing changes, cover with band-aid bupropion HCl 300 mg tablet extended release 24 hr 300 mg PO QAM Qty: 30 2RF buspirone 10 mg tablet 10 mg PO BID Qty: 60 2RF fluoxetine 40 mg capsule 40 mg PO DAILY Qty: 30 2RF trazodone 100 mg tablet 400 mg PO BEDTIME Qty: 120 2RF (DME) Diabetic Shoes with Custom insoles See Rx Instructions .Route .MEDSUPPLY Qty: 1 0RF Rx Instructions: As directed (DME) AFO to left See Rx Instructions .Route .MEDSUPPLY Qty: 1 0RF Rx Instructions: As directed by [facility] atorvastatin 40 mg tablet 40 mg PO QAM Qty: 90 2RF nitroglycerin [Nitrostat] 0.4 mg tablet, sublingual 0.4 mg SUBLINGUAL Q5M PRN (Reason: Chest Pain) Qty: 25 2RF Rx Instructions: do not exceed 3 doses per episode Mounjaro 15 mg/0.5 mL pen injector 15 mg SUBCUT Q7D Qty: 2 2RF levothyroxine 88 mcg tablet 88 mcg PO QAM Tresiba FlexTouch U-200 200 unit/mL (3 mL) insulin pen 48 - 50 unit SUBCUT QAM gabapentin 100 mg capsule 100 mg PO BID meclizine 12.5 mg tablet 12.5 mg PO BID PRN (Reason: dizziness) Qty: 14 0RF bumetanide 2 mg tablet See Rx Instructions .ROUTE .COMPLEX Rx Instructions: 2mg (1 tab)po qam and 4mg (2 tabs)in the evening tizanidine 2 mg Tablet 2 mg PO BID PRN (Reason: Muscle Spasm) promethazine 25 mg tablet 25 mg PO Q6H PRN (Reason: Nausea) (DME) Dexcom G7 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 MISCELLANEOUS RenaPlex-D 800 mcg-12.5 mg -2,000 unit tablet 1 tab PO QPM diphenhydramine HCl [Benadryl Allergy] 25 mg Tablet 50 mg PO DAILY PRN (Reason: Allergy Symptoms) insulin lispro [Humalog KwikPen Insulin] 100 unit/mL insulin pen See Rx Instructions .ROUTE .COMPLEX Rx Instructions: sliding scale subcutaneously twice a day ranolazine 500 mg tablet extended release 12 hr 500 mg PO BID clopidogrel 75 mg tablet 75 mg PO DAILY isosorbide mononitrate 30 mg tablet extended release 24 hr See Rx Instructions .ROUTE .COMPLEX Qty: 45 0RF Rx Instructions: 15 mg daily, do not take on dialysis days Discharge Orders: Discharge ED (Routine); Ordered 09/29/23 Ordered By: Nick Hutchison Referrals: Kp Montanez DO [Primary Care Provider] - 7-10 days Discharge Diet: Usual diet Discharge Activity: Increase activity as tolerated Patient Instructions: Opioid Safety, Pain Management Activity Restrictions/Additional Instructions: As we discussed you have a urinary tract infection which is likely why you have not felt well for the past few days. We recommend that you continue your usual medications, especially increasing your fluid intake and take the antibiotics we have prescribed. If over the next 48 hours you do not see continued improvement or have worsening symptoms or other concerning symptoms you are welcome to return to the emergency department for reevaluation. You should follow-up with your regular doctor in approximately week to 10 days for reevaluation. Coding Level of Care Code ED Financial Analysis Advisor for Aaron Irene
--- NOTE | 2023-09-29 17:45 | XRR_ITS ---
PROCEDURE INFORMATION: Exam: XR Chest Exam date and time: 09/29/2023 5:50 PM Age: 53 years old Clinical indication: Pain; Chest pressure; Prior surgery; Surgery date: 6+ months; Surgery type: Open heart port stent; Additional info: Cp TECHNIQUE: Imaging protocol: Radiologic exam of the chest. Views: 1 view. COMPARISON: CR XR chest 1V portable [id number] 07/08/2023 5:38 AM FINDINGS: Tubes, catheters and devices: Left anterior chest wall infusion port with its tip terminating in the SVC. Lungs: Unremarkable. No consolidation. Pleural spaces: No pneumothorax, or pleural effusion. Heart/Mediastinum: Unremarkable. No cardiomegaly. Bones/joints: Moderate sternotomy. Other findings: No acute interval changes. XR/XR chest 1V portable [id number] IMPRESSION: No acute interval changes.
--- NOTE | 2023-09-29 18:48 | PC.NURSE ---
meds delayed due to needing port accessed.
[2023-09-29 18:49] VITALS: BP 127/67; PULSE 72; RESP 16; O2SAT 98
--- NOTE | 2023-09-29 19:45 | ECG_ITS ---
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 Measurements Intervals [place] Rate: 73 P: 0 VT: 170 QRS: -10 QRSD: 110 T: 49 QT: 411 QTc: 453 Interpretive Statements SINUS RHYTHM POSSIBLE ANTERIOR MYOCARDIAL INFARCTION , PROBABLY OLD [30 ms Q WAVE IN V3/V4, OR R < 0.2 mV IN V4] Compared to ECG 09/29/2023 17:26:46 No significant changes Electronically Signed On 09-29-2023 22:41:12 CDT by Karen Choi M.D. [email or web address]
[2023-09-29 20:14] LABS: Basophils # 0.1 10^3/uL (0.0-0.1); Basophils % 1.1 %; Eosinophils # 0.2 10^3/uL (0.0-0.8); Eosinophils % 2.1 %; Hematocrit 34.9 % (37-53); Lymphocytes # 2.1 10^3/uL (0.8-4.8); Lymphocytes % 27.3 %; Mean Corpuscular HGB Conc 34.4 g/dL (30-55); Mean Corpuscular Hemoglobin 33.6 pg (27-33); Mean Corpuscular Volume 97.8 fl (82-101); Mean Platelet Volume 8.7 fL (7.4-10.4); Monocytes # 0.7 10^3/uL (0.2-0.9); Monocytes % 9.4 %; Neutrophils # 4.52 10^3/uL (1.8-7.7); Neutrophils % 59.7 %; Nucleated Red Blood Cells % 0 %; Platelet Count 219 10^3/cmm (157-399); Red Blood Count 3.57 10^6/uL (3.85-5.65); Red Cell Distribution Width 14.2 % (12.1-15.1); White Blood Count 7.57 10^3/uL (3.29-11.43)
[2023-09-29] MEDS: sodium chloride 0.9% 500 ML 999 ML IV (20:14)
[2023-09-29 20:27] LABS: Add Urine Microscopic? YES; Bilirubin Urine 1+ (Negative); Blood Urine Neg (Negative); Glucose Urine UA Norm (Normal); Ketones Urine 1+ (Negative); Leukocyte Esterase Urine 1+ (Negative); Nitrate Urine Negative (Negative); Protein Urine 2+ (Negative); Specific Gravity, Urine 1.015 (1.005-1.030); Urine Appearance Clear (CLEAR); Urine Color Yellow (Yellow); Urobilinogen Urine Neg (Negative); pH Urine 5 (5-7)
[2023-09-29 20:28] LABS: Amorphous Sediment Urine TRACE /hpf; Bacteria Urine 1+ /hpf; Hyaline Casts Urine 0-4 /lpf; Mucus Urine 2+ /hpf; RBC Urine 0-4 /hpf (0-2); Squamous Epithelial Cell Urine 0-4 /hpf (0-5); WBC Urine 15-25 /hpf (0-5)
[2023-09-29 20:33] LABS: Troponin(5th) Baseline 66 ng/L (0-15)
[2023-09-29] MEDS: promethazine 25 mg Tablet 12.5 MG PO (20:37)
[2023-09-29 20:41] VITALS: RESP 17; O2SAT 96
[2023-09-29 20:41] LABS: Alanine Aminotransferase 12 U/L (0-41); Albumin Level 4.1 g/dL (3.5-5.2); Alkaline Phosphatase 77 U/L (40-130); Anion Gap 12.6 (5-19); Aspartate Amino Transferase 16 U/L (0-40); Blood Urea Nitrogen 22 mg/dL (6-20); Calcium 8.9 mg/dL (8.5-10.5); Carbon Dioxide 31 mmol/L (22-29); Chloride 97 mmol/L (98-107); Globulin 2.2 g/dL (1.3-4.6); Glomerular Filtration Rate 17.7 mL/min (90-130); Glucose 103 mg/dL (65-115); NT Pro B Type Natriuretic Pept 2741 pg/mL (0-125); Osmolality Calculated 288 mOsm/kg (285-295); Potassium 3.6 mmol/L (3.5-5.1); Sodium 137 mmol/L (136-145); Total Bilirubin 0.6 mg/dL (0.15-1.2); Total Protein 6.3 g/dL (6.6-8.7)
[2023-09-29] MEDS: morphine 4 mg/mL SDV 1 mL 2 MG IVP (20:41)
[2023-09-29] MEDS: cefTRIAXone 2,000 MG in sodium chloride 0.9% (plus) 50 ML 100 MG IV (21:42)
[2023-09-29 21:52] VITALS: BP 163/82; PULSE 69; RESP 15; O2SAT 94
[2023-09-29 22:17] VITALS: BP 157/80; PULSE 71; RESP 16; TEMP 36.7; O2SAT 96
== END 2023-09-29 22:19 | disposition home or self-care (01) ==
PROVIDERS: Emergency Provider Emergency Medicine; PCP Internal Medicine
DX: N39.0 Urinary tract infection, site not specified (principal); R79.89 Other specified abnormal findings of blood chemistry; I13.2 Hypertensive heart and chronic kidney disease with heart failure and with stage 5 chronic kidney disease, or end stage renal disease; E11.22 Type 2 diabetes mellitus with diabetic chronic kidney disease; N18.6 End stage renal disease; I50.22 Chronic systolic (congestive) heart failure; I25.118 Atherosclerotic heart disease of native coronary artery with other forms of angina pectoris; E78.5 Hyperlipidemia, unspecified; I25.5 Ischemic cardiomyopathy; I25.2 Old myocardial infarction; Z79.82 Long term (current) use of aspirin; Z79.01 Long term (current) use of anticoagulants; Z79.02 Long term (current) use of antithrombotics/antiplatelets; Z79.4 Long term (current) use of insulin; Z11.52 Encounter for screening for COVID-19
CPT/HCPCS: 71045; 80053; 81001; 83880; 84484; 85025; 87400; 87426; 93005; 96374; 96375; 99285; J0696; J2270; J7040; Q0169

== ENCOUNTER 2023-10-01 13:22 | Observation (INO) | payer MEDICARE, MEDICAID, SELFPAY ==
[2023-10-01] VITALS (7 sets, daily range): BP systolic 130–146; BP diastolic 50–85; PULSE 77–85; RESP 15–18; TEMP 36.5–37; O2SAT 92–97; BMI 39.3
--- NOTE | 2023-10-01 13:36 | ECG_ITS ---
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 Measurements Intervals [place] Rate: 84 P: 35 MS: 211 QRS: 11 QRSD: 103 T: 53 QT: 383 QTc: 453 Interpretive Statements SINUS RHYTHM WITH FIRST DEGREE AV BLOCK POSSIBLE ANTERIOR MYOCARDIAL INFARCTION , PROBABLY OLD [30 ms Q WAVE IN V3/V4, OR R < 0.2 mV IN V4] Compared to ECG 09/29/2023 20:14:51 First degree AV block now present Myocardial infarct finding still present Electronically Signed On 10-01-2023 17:47:14 CDT by Garrison Mckinney M.D. [email or web address]
--- NOTE | 2023-10-01 13:47 | W.ED.CHESTPA ---
HPI - Chest Pain General: Chief Complaint: Chest Pain Stated Complaint: Chest pain Time Seen by Provider: 10/01/23 13:25 Source: patient Mode of arrival: ambulatory History of Present Illness: 53-year-old male with a known history of coronary disease and end-stage renal disease. He was completing his course of dialysis today and began having chest pain around 1030 this morning. He was waiting for his ride for a couple of hours had worsening chest pain and states he got very severe initially they called EMS he was given 325 of aspirin and given sublingual nitro by EMS and reported significant improvement of his chest discomfort. EMS had also applied topical Nitropaste to his chest as chest discomfort is now down to a 2 out of 10. Patient has known coronary artery disease has had interventions as recently as earlier this year. Patient reports pain radiating to his back and arms and neck MD complaint: chest pain Pertinent past history: coronary artery disease Onset (ago): hour(s) Timing of current episode: episodic Prior episodes: Yes Onset: during rest Pain location: left chest Pain radiation: right arm, left arm, back and neck Quality: sharp Relieving factors: nothing Exacerbating factors: nothing Associated symptoms: Reports dyspnea; Deny abdominal pain, diaphoresis, fever(s), leg edema, nausea, palpitations, sense of impending doom, syncope or vomiting Treatment prior to arrival: aspirin, nitroglycerin and oxygen Review of Systems Const: Denies: fever(s), chills or diaphoresis Card: Reports: chest pain, edema and swelling of feet/ankles; Denies: palpitations or syncope Resp: Reports: dyspnea GI: Denies: abdominal pain, nausea or vomiting : Denies: dysuria, urinary frequency or urinary urgency Musc: Denies: neck pain or back pain Skin/Breast: Denies: rash [facility] ED PFSH: Medical History ESRD (end stage renal disease) Uremic encephalopathy Generalized anxiety disorder ESRD (end stage renal disease) D-dimer, elevated Acute on chronic congestive heart failure History of pulmonary embolism Diabetes Acute kidney injury superimposed on CKD GERD (gastroesophageal reflux disease) Alcohol use disorder, moderate, in sustained remission Major depressive disorder, recurrent severe without psychotic features DVT (deep venous thrombosis) (~03/2020) Proximal left subclavian, basilic and brachial veins, started eliquis this stay, felt present prior to admission Chronic kidney disease -baseline Cr appears to be around 1.5 Chronic systolic heart failure Atherosclerotic heart disease of [place] coronary artery with other forms of angina pectoris hx of CAD with prior stenting of proximal LAD, LCx, RCA Ischemic cardiomyopathy Onychodystrophy Chronic anticoagulation Eliquis Osteoarthritis of spine Hypothyroidism Hypertension Hyperlipidemia Diabetes Depression Anemia Foot drop, left H/O acute myocardial infarction H/O deep venous thrombosis developed compartment syndrome Surgical History Peritoneal dialysis catheter in situ (06/15/21) History of appendectomy 1995 History of excision of mass 06/08/2019: Subcutaneous mass on back History of removal of Port-a-Cath Port-A-Cath in place H/O vasectomy Hx of cholecystectomy History of coronary artery stent placement 5x H/O skin graft History of inguinal hernia repair, bilateral 2000 H/O removal of testicle left H/O colonoscopy (11/14/20) 08/2015 H/O esophagogastroduodenoscopy (11/14/20) 08/2015 Family History Grandfather Cancer skin cancer Parkinson disease Brother Hypertension Father Heart disease Mother Hypertension Stroke Aneurysm Grandmother Aneurysm Other Crohn's disease Denies family history of Anesthesia complication Bleeding disorder Social History Smoking and tobacco/nicotine status: never used tobacco/nicotine Second hand smoke exposure: No Alcohol intake: former Year of sobriety/quit date alcohol: 2015 Former alcohol use details: Only holidays Substance/Drug Use: never Lives independently: Yes Household members: significant other Marital status: Single Current occupational status: disabled Physical Exam Const: GENERAL APPEARANCE: cooperative and comfortable ORIENTATION/CONSCIOUSNESS: Yes awake, Yes oriented to person, Yes oriented to place and Yes oriented to time HENMT: COMMON NORMALS: normocephalic, atraumatic and hearing grossly normal bilaterally HEAD & SCALP: normocephalic and atraumatic Resp: COMMON NORMALS: normal respiratory effort, No retractions, No use of accessory muscles and clear to auscultation bilaterally AUSCULTATION: clear to auscultation bilaterally Cardio: COMMON NORMALS: regular rate, regular rhythm and No murmurs present (Cardio) RATE: regular rate RHYTHM: regular rhythm GI: COMMON NORMALS: Soft to palpation and No hepatosplenomegaly present AUSCULTATION: Yes normoactive bowel sounds PALPATION: Yes Soft to palpation, No Tenderness to palpation present (GI), No Guarding due to palpation present (GI) and Yes No hepatosplenomegaly present Extremity: COMMON NORMALS: normal to inspection, capillary refill normal and no calf tenderness GENERAL: Yes edema Neuro: SENSORIUM/ORIENTATION: Yes oriented to person, Yes oriented to place and Yes oriented to time Skin: COMMON NORMALS: no rashes or lesions noted GENERAL SKIN EXAM: no rashes or lesions noted Course Vital Signs: Vital signs: Vital Signs Temperature 98.6 F 10/01/23 13:25 Pulse Rate 80 10/01/23 18:29 Respiratory Rate 18 10/01/23 13:25 Blood Pressure 135/50 10/01/23 18:29 Pulse Oximetry 92 10/01/23 18:29 Oxygen Delivery Me thod Room Air 10/01/23 18:29 MDM - Chest Pain Medical Decision Making Cardiac enzymes trending negative no acute changes on his EKG there is one EKG that had a lot of artifact the computer called abnormal though and repeated shortly afterward without the artifact and no acute changes. Unfortunately he is still intermittently complaining of severe chest pain radiating to his neck and jaw and had relief of chest pain with nitro. Patient has had restenosis of stents and short time frames in the past 6 months ago he had an angiogram done which did not show any significant abnormalities. I discussed Dr. Frank who is very familiar with the patient after reviewing with him he recommends that we place patient on observation finishing the troponin series if it does not show any elevation of the patient having chest pain getting a Lexiscan sestamibi stress test if there is a bump in troponins he will be consulted for further evaluation and consideration of angiography. Discussed with the patient and family orders written for admission Medical Records I reviewed the patient's medical records. Lab Data I reviewed the patient's lab results. 10/01/23 14:00 10/01/23 14:00 Radiology Impressions Chest X-Ray 10/01/23 14:33 IMPRESSION: 1. No acute findings. 2. Stable coarse reticular opacity in the left lung base. Probable atelectasis or scarring. 3. Stable satisfactory left chest port position. Laboratory Results WBC 6.79 10^3/uL (3.29-11.43) 10/01/23 14:00 RBC 3.73 10^6/uL (3.85-5.65) L 10/01/23 14:00 Hgb 12.60 g/dL (11.27-16.99) 10/01/23 14:00 Hct 36.6 % (37-53) L 10/01/23 14:00 MCV 98.1 fl (82-101) 10/01/23 14:00 MCH 33.8 pg (27-33) H 10/01/23 14:00 MCHC 34.4 g/dL (30-55) 10/01/23 14:00 RDW 14.1 % (12.1-15.1) 10/01/23 14:00 Plt Count 239 10^3/cmm (157-399) 10/01/23 14:00 MPV 9.1 fL (7.4-10.4) 10/01/23 14:00 Neut % (Auto) 71.3 % 10/01/23 14:00 Lymph % (Auto) 19.4 % 10/01/23 14:00 [place] % (Auto) 6.5 % 10/01/23 14:00 Eos % (Auto) 1.8 % 10/01/23 14:00 Baso % (Auto) 0.7 % 10/01/23 14:00 Neut # (Auto) 4.84 10^3/uL (1.8-7.7) 10/01/23 14:00 Lymph # (Auto) 1.3 10^3/uL (0.8-4.8) 10/01/23 14:00 [place] # (Auto) 0.4 10^3/uL (0.2-0.9) 10/01/23 14:00 Eos # (Auto) 0.1 10^3/uL (0.0-0.8) 10/01/23 14:00 Baso # (Auto) 0.1 10^3/uL (0.0-0.1) 10/01/23 14:00 Nucleated RBC % (auto) 0 % 10/01/23 14:00 Nucleated RBCs # 0.0 /100WBC 10/01/23 14:00 D-Dimer 0.51 ug/mLFEU (0-0.59) 10/01/23 14:00 Sodium 141 mmol/L (136-145) 10/01/23 14:00 Potassium 3.5 mmol/L (3.5-5.1) 10/01/23 14:00 Chloride 99 mmol/L (98-107) 10/01/23 14:00 Carbon Dioxide 31 mmol/L (22-29) H 10/01/23 14:00 Anion Gap 14.5 (5-19) 10/01/23 14:00 BUN 11 mg/dL (6-20) 10/01/23 14:00 Creatinine 1.9 mg/dL (0.7-1.2) H 10/01/23 14:00 GFR Calculation 37.0 mL/min (90-130) L 10/01/23 14:00 Glucose 128 mg/dL (65-115) H 10/01/23 14:00 Calculated Osmolality 293 mOsm/kg (285-295) 10/01/23 14:00 Calcium 9.4 mg/dL (8.5-10.5) 10/01/23 14:00 Total Bilirubin 0.5 mg/dL (0.15-1.2) 10/01/23 14:00 AST 16 U/L (0-40) 10/01/23 14:00 ALT 15 U/L (0-41) 10/01/23 14:00 Alkaline Phosphatase 86 U/L (40-130) 10/01/23 14:00 Troponin T Baseline 64 ng/L (0-15) H 10/01/23 14:00 Troponin T 120 Minute 63.08 ng/L (0-15) H 10/01/23 15:55 Delta Troponin T -0.92 ABS# (0-10) L 10/01/23 15:55 Total Protein 7.0 g/dL (6.6-8.7) 10/01/23 14:00 Albumin 3.9 g/dL (3.5-5.2) 10/01/23 14:00 Globulin 3.1 g/dL (1.3-4.6) 10/01/23 14:00 Urine Color Dark yellow (Yellow) 10/01/23 16:23 Urine Appearance Cloudy (CLEAR) A 10/01/23 16:23 Urine pH 6 (5-7) 10/01/23 16:23 Ur Specific [place] 1.020 (1.005-1.030) 10/01/23 16:23 Urine Protein 3+ (Negative) H 10/01/23 16:23 Urine Glucose (UA) Trace (Normal) H 10/01/23 16:23 Urine Ketones Negative (Negative) 10/01/23 16:23 Urine Blood Neg (Negative) 10/01/23 16:23 Urine Nitrate Negative (Negative) 10/01/23 16:23 Urine Bilirubin Neg (Negative) 10/01/23 16:23 Urine Urobilinogen Norm mg/dL (Negative) 10/01/23 16:23 Ur Leukocyte Esterase 1+ (Negative) H 10/01/23 16:23 Urine RBC 0-4 /hpf (0-2) H 10/01/23 16:23 Urine WBC >100 /hpf (0-5) H 10/01/23 16:23 Ur Squamous Epith Cells 0-4 /hpf (0-5) H 10/01/23 16:23 Ur Transition Epith Cell 0-4 /hpf 10/01/23 16:23 Amorphous Sediment Not Reportable 10/01/23 16:23 Urine Bacteria 1+ /hpf (NONE) H 10/01/23 16:23 Hyaline Casts 5-10 /lpf H 10/01/23 16:23 Fine Granular Casts 0-4 /lpf H 10/01/23 16:23 Urine Mucus None /hpf 10/01/23 16:23 All radiology interpretation(s) finalized by discharge Discharge Plan Discharge Patient Disposition: Admitted As Inpatient Admit Provider: Rosi Etienne Clinical Impression: Atherosclerotic heart disease of [place] coronary artery with other forms of angina pectoris, ESRD (end stage renal disease) Condition: Stable Coding Level of Care Code ED Brewing Director for Aaron Irene
--- NOTE | 2023-10-01 14:04 | PC.PHAR ---
pt states does not take meds on dialysis days
[2023-10-01 14:07] LABS: Basophils # 0.1 10^3/uL (0.0-0.1); Basophils % 0.7 %; Eosinophils # 0.1 10^3/uL (0.0-0.8); Eosinophils % 1.8 %; Hematocrit 36.6 % (37-53); Lymphocytes # 1.3 10^3/uL (0.8-4.8); Lymphocytes % 19.4 %; Mean Corpuscular HGB Conc 34.4 g/dL (30-55); Mean Corpuscular Hemoglobin 33.8 pg (27-33); Mean Corpuscular Volume 98.1 fl (82-101); Mean Platelet Volume 9.1 fL (7.4-10.4); Monocytes # 0.4 10^3/uL (0.2-0.9); Monocytes % 6.5 %; Neutrophils # 4.84 10^3/uL (1.8-7.7); Neutrophils % 71.3 %; Nucleated Red Blood Cells % 0 %; Platelet Count 239 10^3/cmm (157-399); Red Blood Count 3.73 10^6/uL (3.85-5.65); Red Cell Distribution Width 14.1 % (12.1-15.1); White Blood Count 6.79 10^3/uL (3.29-11.43)
[2023-10-01 14:29] LABS: Alanine Aminotransferase 15 U/L (0-41); Albumin Level 3.9 g/dL (3.5-5.2); Alkaline Phosphatase 86 U/L (40-130); Anion Gap 14.5 (5-19); Aspartate Amino Transferase 16 U/L (0-40); Blood Urea Nitrogen 11 mg/dL (6-20); Calcium 9.4 mg/dL (8.5-10.5); Carbon Dioxide 31 mmol/L (22-29); Chloride 99 mmol/L (98-107); Globulin 3.1 g/dL (1.3-4.6); Glucose 128 mg/dL (65-115); Osmolality Calculated 293 mOsm/kg (285-295); Potassium 3.5 mmol/L (3.5-5.1); Sodium 141 mmol/L (136-145); Total Bilirubin 0.5 mg/dL (0.15-1.2)
[2023-10-01 14:30] LABS: Troponin(5th) Baseline 64 ng/L (0-15)
--- NOTE | 2023-10-01 14:33 | XRR_ITS ---
PROCEDURE INFORMATION: Exam: XR Chest Exam date and time: 10/01/2023 2:41 PM Age: 53 years old Clinical indication: Cough and dyspnea; Prior surgery; Surgery date: 6+ months; Surgery type: Open heart, pacer, port; Additional info: Dyspnea/cough TECHNIQUE: Imaging protocol: Radiologic exam of the chest. Views: 1 view. COMPARISON: CR (CHEST, ) 09/29/2023 5:50 PM FINDINGS: Tubes, catheters and devices: There is a left chest port with the line tip appropriately positioned in the lower SVC near the cavoatrial junction. Lungs: Mild coarse reticular opacity in the left lung base, similar to 09/29/2023. Pleural spaces: There is no pleural effusion or pneumothorax. Heart/Mediastinum: There is mild enlargement of the cardiac silhouette. Bones/joints: Sternal wires are present. There is no displacement to suggest sternal dehiscence. No visible fractures. XR/XR chest 1V portable [id number] IMPRESSION: 1. No acute findings. 2. Stable coarse reticular opacity in the left lung base. Probable atelectasis or scarring. 3. Stable satisfactory left chest port position.
--- NOTE | 2023-10-01 16:06 | ECG_ITS ---
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 Measurements Intervals [place] Rate: 84 P: 212 ID: [id number] QRS: 174 QRSD: 105 T: 107 QT: 389 QTc: 460 Interpretive Statements ECTOPIC ATRIAL RHYTHM RIGHT AXIS DEVIATION [QRS AXIS > 100] ANTERIOR MYOCARDIAL INFARCTION , PROBABLY OLD [40+ ms Q WAVE AND/OR ST/T ABNORMALITY IN V3/V4] Compared to ECG 10/01/2023 13:36:20 Ectopic atrial rhythm now present Right-axis deviation now present ST (T wave) deviation now present Sinus rhythm no longer present First degree AV block no longer present Electronically Signed On 10-01-2023 17:48:59 CDT by Garrison Mckinney M.D. [id number]
--- NOTE | 2023-10-01 16:11 | ECG_ITS ---
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 Measurements Intervals [place] Rate: 84 P: 11 [place]: 197 QRS: -15 QRSD: 107 T: 50 QT: 375 QTc: 444 Interpretive Statements SINUS RHYTHM POSSIBLE ANTERIOR MYOCARDIAL INFARCTION , PROBABLY OLD [30 ms Q WAVE IN V3/V4, OR R < 0.2 mV IN V4] Compared to ECG 10/01/2023 16:06:41 Ectopic atrial rhythm no longer present Right-axis deviation no longer present ST (T wave) deviation no longer present Myocardial infarct finding still present Electronically Signed On 10-01-2023 17:48:38 CDT by Garrison Mckinney M.D. [id number]
[2023-10-01] MEDS: morphine 4 mg/mL SDV 1 mL IVP (16:28)
[2023-10-01 16:29] LABS: Troponin 5 2HR 63.08 ng/L (0-15)
[2023-10-01 16:32] LABS: Troponin 5 2HR Delta -0.92 ABS# (0-10)
[2023-10-01 18:43] LABS: Protein Urine 3+ (Negative); Urine Appearance Cloudy (CLEAR); Urine Color Dark Yellow (Yellow); pH Urine 6 (5-7)
[2023-10-01 18:44] LABS: Add Urine Microscopic? YES; Bilirubin Urine Neg (Negative); Blood Urine Neg (Negative); Glucose Urine UA Trace (Normal); Ketones Urine Negative (Negative); Leukocyte Esterase Urine 1+ (Negative); Nitrate Urine Negative (Negative); Urobilinogen Urine Norm (Negative)
[2023-10-01 18:51] LABS: Add Urine Culture? Yes; Bacteria Urine 1+ /hpf; Fine Granular Casts Urine 0-4 /lpf; RBC Urine 0-4 /hpf (0-2); Squamous Epithelial Cell Urine 0-4 /hpf (0-5); Transitional Epi Cells Urine 0-4 /hpf; WBC Urine >100 /hpf (0-5)
--- NOTE | 2023-10-01 18:56 | PM.HP ---
Providers/Chief Complaint Admitting Physician: Rosi Etienne MD Primary Care Provider: Kp Montanez DO Chief Complaint: Chest pain History of Present Illness Rei Queen II is a 53 year old male established coronary disease status post 16s, recent stent was few months ago, gets dialysis Saturday, patient was at dialysis today when he start experiencing chest discomfort which he is describing as pressure-like sensation, it would last for only 10 minutes, it comes and goes, it radiates towards his jaw and left arm with some numbness. He is not experiencing any chest pain at the time of evaluation. We are trending troponin, patient has significant UTI as well patient does make urine with his dialysis Patient is not endorsing any dysuria No fever nausea vomiting Review of Systems Const: Denies: fever(s) Eyes: Denies: change in vision ENMT: Denies: throat pain Card: Reports: chest pain Resp: Denies: dyspnea GI: Denies: abdominal pain Medications/Allergies Home Medications Medication Instructions Recorded Confirmed Last Taken Type aspirin 81 mg tablet,delayed 81 mg PO QAM 06/01/19 10/01/23 09/30/23 History release levothyroxine 88 mcg tablet 88 mcg PO QAM 02/09/21 10/01/23 09/30/23 History apixaban 2.5 mg tablet (Eliquis) 2.5 mg PO BID 09/14/21 10/01/23 09/30/23 History insulin degludec 200 unit/mL (3 40 unit SUBCUT QAM 12/11/21 10/01/23 09/30/23 History mL) subcutaneous pen (Tresiba FlexTouch U-200 insulin) sevelamer carbonate 800 mg tablet 800 mg PO TID PRN UNKNOWN 06/18/22 10/01/23 09/30/23 History bumetanide 2 mg tablet See Rx Instructions .Route .COMPLEX 08/16/22 10/01/23 09/30/23 History atorvastatin 40 mg tablet 40 mg PO QAM #90 tabs 10/25/22 10/01/23 09/30/23 Rx blood-glucose meter,continuous 02/27/23 10/01/23 03/15/23 History (Dexcom G7 Product Introduction Manager) promethazine 25 mg tablet 25 mg PO Q6H PRN Nausea 02/27/23 10/01/2323 History tizanidine 2 mg tablet 2 mg PO BID PRN Muscle Spasm 02/27/23 10/01/23 03/15/23 History vit B,C-folic ac 800 mcg-zinc 12.5 1 tab PO QPM 02/27/23 10/01/23 09/30/23 History mg-selen-D3 2,000 unit-vit E tablet (RenaPlex-D) diphenhydramine HCl 25 mg tablet 50 mg PO DAILY PRN Allergy Symptoms 05/02/23 10/01/23 Unknown History (Benadryl Allergy) insulin lispro 100 unit/mL See Rx Instructions .Route .COMPLEX 05/02/23 10/01/23 07/06/23 History subcutaneous pen (Humalog KwikPen (U-100) Insulin) ranolazine 500 mg tablet,extended 500 mg PO BID 05/02/23 10/01/23 09/30/23 History release,12 hr blood-glucose sensor (Dexcom G7 #9 ea 05/14/23 10/01/23 Unknown Rx Sensor device) clopidogrel 75 mg tablet 75 mg PO DAILY 05/18/23 10/01/23 09/30/23 History gabapentin 100 mg capsule 100 mg PO BID 07/07/23 10/01/23 09/30/23 History meclizine 12.5 mg tablet 12.5 mg PO BID PRN dizziness #14 07/07/23 10/01/23 Unknown Rx tabs bupropion HCl 300 mg 24 hr tablet, 300 mg PO QAM #30 tabs 07/22/23 10/01/23 09/30/23 Rx extended release buspirone 10 mg tablet 10 mg PO BID #60 tabs 07/22/23 10/01/23 09/30/23 Rx fluoxetine 40 mg capsule 40 mg PO DAILY #30 caps 07/22/23 10/01/23 09/30/23 Rx trazodone 100 mg tablet 400 mg (4 x 100 mg) PO BEDTIME 07/22/23 10/01/23 09/30/23 Rx insomnia #120 tabs AFO to left #1 ea 07/25/23 10/01/23 Unknown Rx Diabetic Shoes with Custom insoles #1 ea 07/25/23 10/01/23 Unknown Rx nitroglycerin 0.4 mg sublingual 0.4 mg sublingual Q5M PRN Chest 08/27/23 10/01/23 Unknown Rx tablet (Nitrostat) Pain #25 tabs mupirocin 2 % topical ointment 1 applic topical TID #15 grams 08/28/23 10/01/23 Unknown Rx tirzepatide 15 mg/0.5 mL 15 mg (0.5 mL) SUBCUT Q7D #2 mL 09/12/23 10/01/23 Unknown Rx subcutaneous pen injector (Jennifer) cephalexin 500 mg capsule 500 mg PO 1XD 10 days #40 caps 09/29/23 10/01/23 09/30/23 Rx carvedilol 6.25 mg tablet 6.25 mg PO BID 10/01/23 10/01/23 09/30/23 History hydrocortisone 2.5 % topical cream See Rx Instructions .Route .COMPLEX 10/01/23 10/01/23 Unknown History with perineal applicator (Procto-Med HC) isosorbide mononitrate 30 mg See Rx Instructions .Route .COMPLEX 10/01/23 10/01/23 09/30/23 History tablet,extended release 24 hr Allergies Allergy/AdvReac Type Severity Reaction Status Date / Time Iodinated Contrast Media Allergy Severe ALGY-Difficulty Verified 10/01/23 13:30 Breathing iodine Allergy Severe ALGY-Difficulty Verified 10/01/23 13:30 Breathing metoclopramide [From Reglan] Allergy Severe ALGY-Difficulty Verified 10/01/23 13:30 Breathing nalbuphine [From Nubain] Allergy Severe ADR-Diarrhe Verified 10/01/23 13:30 a naproxen [From Naprosyn] Allergy Severe ADR-Vomitin Verified 10/01/23 13:30 g Sulfa (Sulfonamide Allergy Severe ALGY-Difficulty Verified 10/01/23 13:30 Antibiotics) Breathing ketorolac Allergy Intermediate ADR-Nausea Verified 10/01/23 13:30 ondansetron [From Zofran] Allergy Intermediate ADR-Abdominal Verified 10/01/23 13:30 Pain prochlorperazine Allergy Intermediate ADR-Irritab Verified 10/01/23 13:30 [From Compazine] le codeine AdvReac Severe ALGY-Anaphy Verified 10/01/23 13:30 laxis haloperidol [From Haldol] AdvReac Intermediate ADR-Irritab Verified 09/29/23 15:19 le PFSH Acute PFSH: Medical History ESRD (end stage renal disease) Uremic encephalopathy Generalized anxiety disorder ESRD (end stage renal disease) D-dimer, elevated Acute on chronic congestive heart failure History of pulmonary embolism Diabetes Acute kidney injury superimposed on CKD GERD (gastroesophageal reflux disease) Alcohol use disorder, moderate, in sustained remission Major depressive disorder, recurrent severe without psychotic features DVT (deep venous thrombosis) (~03/2020) Proximal left subclavian, basilic and brachial veins, started eliquis this stay, felt present prior to admission Chronic kidney disease -baseline Cr appears to be around 1.5 Chronic systolic heart failure Atherosclerotic heart disease of [place] coronary artery with other forms of angina pectoris hx of CAD with prior stenting of proximal LAD, LCx, RCA Ischemic cardiomyopathy Onychodystrophy Chronic anticoagulation Eliquis Osteoarthritis of spine Hypothyroidism Hypertension Hyperlipidemia Diabetes Depression Anemia Foot drop, left H/O acute myocardial infarction H/O deep venous thrombosis developed compartment syndrome Surgical History Peritoneal dialysis catheter in situ (06/15/21) History of appendectomy 1995 History of excision of mass 06/08/2019: Subcutaneous mass on back History of removal of Port-a-Cath Port-A-Cath in place H/O vasectomy Hx of cholecystectomy History of coronary artery stent placement 5x H/O skin graft History of inguinal hernia repair, bilateral 2000 H/O removal of testicle left H/O colonoscopy (11/14/20) 08/2015 H/O esophagogastroduodenoscopy (11/14/20) 08/2015 Family History Grandfather Cancer skin cancer Parkinson disease Brother Hypertension Father Heart disease Mother Hypertension Stroke Aneurysm Grandmother Aneurysm Other Crohn's disease Denies family history of Anesthesia complication Bleeding disorder Social History Smoking and tobacco/nicotine status: never used tobacco/nicotine Second hand smoke exposure: No Alcohol intake: former Year of sobriety/quit date alcohol: 2015 Former alcohol use details: Only holidays Substance/Drug Use: never Lives independently: Yes Household members: significant other Marital status: Single Current occupational status: disabled Vitals/I&O/Wt Last Vital Signs Temp 98.6 F 10/01/23 13:25 Pulse 80 10/01/23 18:29 Resp 18 10/01/23 13:25 BP 135/50 10/01/23 18:29 Pulse Ox 92 10/01/23 18:29 O2 Del Method Room Air 10/01/23 18:29 Weight last 48 hrs Weight 107.955 kg Physical Exam Narrative: Patient is awake and alert No active chest pain Hemodynamically stable Currently on room air Looks euvolemic Pleasant cooperative at the bedside Blood pressure stable as well S1, S2 Data 10/01/23 14:00 10/01/23 14:00 A&P Assessment and plan (1) Hypertension: Qualifiers: Hypertension type: primary hypertension Qualified Code(s): I10 - Essential (primary) hypertension (2) Elevated troponin: (3) Worsening angina: (4) Chest pain: Qualifiers: Chest pain type: unspecified Qualified Code(s): R07.9 - Chest pain, unspecified (5) Atherosclerotic heart disease of [place] coronary artery with other forms of angina pectoris: (6) PVD (peripheral vascular disease): (7) Peripheral arterial disease: (8) Hyperlipidemia: (9) Chronic anticoagulation: (10) Hypothyroidism: Plan Unstable angina Patient has history of sick stents, recent stent was placed recently, patient is compliant stating that he has not missed any of his medications Non-smoker does not drink alcohol Trend troponin with EKG, if patient remained chest pain-free with downtrending troponin we might be able to do stress test in the morning otherwise he will need an angiogram Continue dual antiplatelet therapy UTI: Start ceftriaxone Afebrile No active symptoms End-stage renal disease disease Saturday Will consult nephro Full code Clear diet for now in case he starts experiencing chest pain at rest and need an angiogram N.p.o. after midnight Attestations Medical Necessity Statement*: Anticipating discharge within 40 hours Diagnoses Primary hypertension I10 Hypertension type: primary hypertension Elevated troponin R77.8 Worsening angina I20.0 Chest pain R07.9 Chest pain type: unspecified Atherosclerotic heart disease of [place] coronary 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 PVD (peripheral vascular disease) I73.9 Peripheral arterial disease I73.9 Hyperlipidemia E78.5 Chronic anticoagulation Z79.01 Hypothyroidism E03.9
[2023-10-01 19:33] LABS: D Dimer 0.51 ug/mLFEU (0-0.59)
--- NOTE | 2023-10-01 20:07 | USCV_ITS ---
Rei Queen Age: 53 Gender: M : 1970 Exam Date: 10/01/2023 20:30 Ordering Phys: Rosi Etienne MD Technologist: KAREN Exam Location: [facility] [place] Indication: Unstable Angina. History of CAD s/p multiple cardiac stents. End-stage renal dz. BP: 135 / 50 HR: 77 Rhythm: Sinus Technical Quality: Fair MEASUREMENTS (Male / Female) Normal Values 2D ECHO LV Diastolic Diameter PLAX 5.9 cm 4.2 - 5.9 / 3.9 - 5.3 cm IVS Diastolic Thickness 1.1 cm 0.6 - 1.0 / 0.6 - 0.9 cm IVS Systolic Thickness 1.7 cm LVPW Diastolic Thickness 1.5 cm 0.6 - 1.0 / 0.6 - 0.9 cm LVPW Systolic Thickness 1.9 cm LVOT Diameter 2.0 cm LV Ejection Fraction 2D Teich 61.2 % LV Ejection Fraction MOD 2C 51.0 % LV Ejection Fraction 2C AL 53.7 % LA Diameter 4.9 cm LA Sys Volume AL 105.7 cm cubed LA Sys Volume Index AL 46.1 cm cubed/m squared Aorta at Sinotubular Diameter 3.0 cm IVC Diameter 1.8 cm M-MODE LA Ao Ratio MM 1.7 AV Cusp Separation MM 2.0 cm DOPPLER AV Peak Velocity 103.0 cm/s LVOT Peak Velocity 46.0 cm/s AV Area Cont Eq vti 1.3 cm squared AV Area Cont Eq pk 1.4 cm squared MV Peak Velocity 112.0 cm/s MV Area PHT 5.3 cm squared Mitral E to A Ratio 0.8 TV Peak E Velocity 32.0 cm/s PV Peak Velocity 93.0 cm/s RV Ejection Time 0.3 s FINDINGS Left Ventricle Left ventricle is dilated. LV systolic function is moderately reduced with EF of 35-40%. Regional wall motion abnormalities can not be assessed because of poor ultrasonic windows. Grade 1 diastolic dysfunction. Right Ventricle Normal in size and function Right Atrium Normal in size Left Atrium Dilated Mitral Valve Mild mitral annular calcification. Mild mitral regurgitation. Aortic Valve Aortic valve is thickened. No significant stenosis or regurgitation. Tricuspid Valve Insufficient TR jet to evaluate RVSP Pulmonic Valve Mild pulmonic regurgitation. Pericardium Normal Aorta Normal in size IVC Appears to be normal CONCLUSIONS LV systolic function is moderately reduced with EF of 35-40%. Grade 1 diastolic dysfunction Left atrial dilation Mild mitral regurgitation Mild pulmonic regurgitation Compared to prior echocardiogram from 2021, LV systolic function is improved and is moderately reduced. Garrison Mckinney MD (Electronically Signed) Final Date: 02 Oct 2023 10:15 S
--- NOTE | 2023-10-01 20:07 | ECG_ITS ---
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 Interpretive Statements NAME OF STUDY: LEXISCAN SESTAMIBI STRESS TEST INDICATION: [Unstable Angina , ] Procedure: At the baseline, the blood pressure was 121/62 mmHg with a heart rate of 77 bpm. The electrocardiogram showed normal sinus rhythm, normal axis with normal ST and T's. The Lexiscan was infused over a period of 20 seconds. A total of 0.4 mg of Lexiscan was infused. The stress phase was continued for a total of 5 minutes. Heart rate was at the end of stress phase was 82 bpm and a blood pressure of 128/58 mmHg. The EKG at the peak infusion revealed normal sinus rhythm with no significant ST-T wave changes. Sestamibi was injected 20 seconds after the Lexiscan infusion. Blood pressure at the end of recovery phase was 129/63 mmHg with a heart rate of 82 bpm. Conclusion: 1. Normal EKG response to Lexiscan infusion 2. No Lexiscan induced chest pain or cardiac arrhythmia. 3. Normal blood pressure and heart rate response. 4. Sestamibi/sestamibi perfusion scan pending; see separate report. Electronically Signed On 10-08-2023 10:41:44 CDT by Garrison Mckinney M.D. [id number]
[2023-10-01 20:50] LABS: Glucose Point of Care 85 mg/dL (70-110)
[2023-10-01] MEDS: isosorbide mononitrate ER 30 mg Tablet PO (23:16)
[2023-10-01] MEDS: morphine 4 mg/mL SDV 1 mL 2 MG IVP (23:59)
[2023-10-02] VITALS (15 sets, daily range): BP systolic 117–141; BP diastolic 44–69; PULSE 77–89; RESP 14–21; TEMP 36.4–36.9; O2SAT 22–97
[2023-10-02] MEDS: morphine IR 15 mg Tablet PO ×3 (01:07→17:51)
--- NOTE | 2023-10-02 02:18 | ECG_ITS ---
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 Measurements Intervals [place] Rate: 77 P: 27 [place]: 184 QRS: -3 QRSD: 106 T: 42 QT: 409 QTc: 463 Interpretive Statements SINUS RHYTHM POSSIBLE ANTERIOR MYOCARDIAL INFARCTION , PROBABLY OLD [30 ms Q WAVE IN V3/V4, OR R < 0.2 mV IN V4] Compared to ECG 10/01/2023 16:11:23 No significant changes Electronically Signed On 10-02-2023 16:24:58 CDT by Garrison Mckinney M.D. [id number]
[2023-10-02 03:17] LABS: Troponin(5th) Baseline 72 ng/L (0-15)
[2023-10-02 04:44] LABS: Basophils # 0.1 10^3/uL (0.0-0.1); Basophils % 0.9 %; Eosinophils # 0.2 10^3/uL (0.0-0.8); Eosinophils % 2.2 %; Hematocrit 35.9 % (37-53); Lymphocytes # 1.8 10^3/uL (0.8-4.8); Lymphocytes % 24.3 %; Mean Corpuscular HGB Conc 33.4 g/dL (30-55); Mean Corpuscular Hemoglobin 33.1 pg (27-33); Mean Corpuscular Volume 98.9 fl (82-101); Mean Platelet Volume 9.1 fL (7.4-10.4); Monocytes # 0.6 10^3/uL (0.2-0.9); Monocytes % 8.6 %; Neutrophils # 4.71 10^3/uL (1.8-7.7); Neutrophils % 63.6 %; Nucleated Red Blood Cells % 0 %; Platelet Count 220 10^3/cmm (157-399); Red Blood Count 3.63 10^6/uL (3.85-5.65); Red Cell Distribution Width 14.2 % (12.1-15.1); White Blood Count 7.41 10^3/uL (3.29-11.43)
[2023-10-02 05:04] LABS: Troponin 5 2HR 70.33 ng/L (0-15)
[2023-10-02 05:05] LABS: Anion Gap 13.6 (5-19); Blood Urea Nitrogen 15 mg/dL (6-20); Calcium 8.7 mg/dL (8.5-10.5); Carbon Dioxide 31 mmol/L (22-29); Chloride 100 mmol/L (98-107); Glomerular Filtration Rate 24.7 mL/min (90-130); Glucose 82 mg/dL (65-115); Magnesium 1.9 mg/dL (1.7-2.3); Osmolality Calculated 292 mOsm/kg (285-295); Potassium 3.6 mmol/L (3.5-5.1); Sodium 141 mmol/L (136-145); Troponin 5 2HR Delta -1.67 ABS# (0-10)
[2023-10-02 05:06] LABS: Creatinine Clr Calc Pharmacy 36.0629
[2023-10-02] MEDS: levothyroxine 88 mcg Tablet PO (05:24)
[2023-10-02] MEDS: aspirin 81 mg EC Tablet PO (05:24)
[2023-10-02] MEDS: atorvastatin 40 mg Tablet PO (05:24)
[2023-10-02] MEDS: morphine 4 mg/mL SDV 1 mL 2 MG IVP ×3 (05:24→19:26)
[2023-10-02 06:29] LABS: Glucose Point of Care 84 mg/dL (70-110)
[2023-10-02] MEDS: regadenoson 0.4 Mg/5 ml Syringe 0.400000000000000022 MG IVP (07:20)
[2023-10-02] MEDS: ranolazine (12HR) 500 mg Tablet PO ×2 (09:01→17:51)
[2023-10-02] MEDS: carvedilol 6.25 mg Tablet PO ×2 (09:01→17:50)
[2023-10-02] MEDS: cefTRIAXone 1,000 MG in sodium chloride 0.9% (plus) 50 ML 100 MG IV ×2 (09:02)
[2023-10-02] MEDS: apixaban 5 mg Tablet 2.5 MG PO (09:02)
[2023-10-02] MEDS: clopidogrel 75 mg Tablet PO (09:03)
[2023-10-02] MEDS: pantoprazole 40 mg SDV IVP ×2 (09:03→17:51)
[2023-10-02] MEDS: isosorbide mononitrate ER 30 mg Tablet PO (09:03)
--- NOTE | 2023-10-02 11:42 | P.PN_ITS ---
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 EF 36% slightly better from last echo which was showing 31% Will consult cardiology because patient is still complaining of chest discomfort on left side Will consult nephro for dialysis tomorrow Vitals/I&O/Wt Last Vital Signs Temp 97.6 F 10/02/23 09:00 Pulse 83 10/02/23 09:00 Resp 17 10/02/23 09:18 BP 123/69 10/02/23 09:00 Pulse Ox 95 10/02/23 09:18 O2 Del Method Room Air 10/02/23 09:00 10/01/23 10/02/23 10/02/23 22:59 06:59 14:59 Intake Total 240 / 240 50 / 290 530 / 530 Balance 240 / 240 50 / 290 530 / 530 Weight last 48 hrs Weight 110.495 kg Weight 107.955 kg Physical Exam 2 Narrative: Pleasant cough No active sign of fluid overload Complaining of left-sided shoulder pain Nonfocal neuroexam Eating breakfast Currently on room air Hemodynamically stable Data 10/02/23 04:16 10/02/23 04:16 Micro: Microbiology 10/01/23 20:40 Blood Culture - Preliminary Blood SPECIMEN COLLECTED 10/01/23 20:45 Blood Culture - Preliminary Blood SPECIMEN COLLECTED A&P Assessment and plan (1) Generalized anxiety disorder: (2) Worsening angina: (3) Angina at rest: (4) Chest pain: Qualifiers: Chest pain type: unspecified Qualified Code(s): R07.9 - Chest pain, unspecified (5) PVD (peripheral vascular disease): (6) Chronic anticoagulation: (7) Anemia: (8) 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 mellitus: (9) UTI (urinary tract infection): Plan UTI: Continue antibiotics Hemodynamically stable Stress test showing previous infarct, echo showed slight improvement from 31% EF to 36%, troponin trending down, EKG unremarkable Patient complaining active chest pain Will consult cardiology Patient is already on Imdur and Ranexa is questionable with continue dialysis indication NC renal disease Saturday schedule will consult nephro Consulted cardiology today Dr. Choi was notified I will allow him to eat cardiac consistent carb diet Continue dual antiplatelet therapy, Eliquis to be put on hold in case he will go for an angiogram If blood pressure stays stable might be able to optimize his antianginal medications Full code Attestations 2 Medical Necessity Statement*: Continue medical treatment Diagnoses Generalized anxiety disorder F41.1 Worsening angina I20.0 Angina at rest I20.8 Chest pain R07.9 Chest pain type: unspecified PVD (peripheral vascular disease) I73.9 Chronic anticoagulation Z79.01 Anemia due to stage 3b chronic kidney disease D64.9 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 mellitus E11.42 UTI (urinary tract infection) N39.0
[2023-10-02 12:03] LABS: Glucose Point of Care 148 mg/dL (70-110)
--- NOTE | 2023-10-02 16:24 | PM.CONSULT ---
Providers/Reason For Consult Consulting Physician/Specialty*: Debi Choi MD/cardiology Reason for Consult*: Patient with ASHD, presenting with chest pain Requesting Physician: Dr. Etienne Attending Physician: Rosi Etienne MD Primary Care Provider: Kp Montanez DO History of Present Illness History of Present Illness Rei Queen II is a 53 year old male with a history of atherosclerotic heart disease, status post multiple PCI, cardiomyopathy ,congestive heart failure, chronic kidney disease, on hemodialysis, is presenting with complaints of chest pain. Currently patient, he has been having episodes of chest pain for the last 1 week. According to him, he may have had a 4 or 5 episodes of chest pain, each time lasting for 10 to 15 minutes and then subsiding either spontaneously or with 1 sublingual nitro. The pain is in the left side of the chest, radiate to the left shoulder, into the left arm, left side of the neck and also to the left side of the jaw. He has no definite precipitating factors. He was somewhat vague about the symptoms. He had a cardiac catheterization in April of last year which revealed a mild to moderate diffuse coronary disease. He had an IFR done on the RCA lesion which was 0.96. It was opted to treat him medically at that time. According the patient, he had a stent in in April and the new better for some time. He has been having chest pains all along but it was not severe up until a week ago?. He had 3 or 4 episodes of chest pain today and the did not want to take any nitro for the pain. He was requesting morphine for the chest pain, according the nurses. This patient is known to have chronic chest pains. He had multiple angiograms in the past. The most recent angiogram was in April 2023 as mentioned above.. He was found to have patent stents with a mild to moderate coronary artery disease. No revascularizable lesions were noted. This patient is known to have chronic kidney disease. He is on hemodialysis. He is known to have pulmonary embolism and Port-A-Cath thrombosis. He is on long-term oral anticoagulation. He has a history of cardiac tamponade, pericardiotomy, cardiac arrest, compartment syndrome secondary to spontaneous bleed in the lower extremity, extensive fasciotomy requiring prolonged rehabilitation, and multiple other medical problems. Review of Systems Narrative: CONSTITUTIONAL: No fever or chills. EYES: No blurring of vision or other visual disturbances lately. ENT: No hoarseness of voice, auditory disturbances or sore throat. CARDIOVASCULAR: As mentioned above. RESPIRATORY: No significant cough. GASTROINTESTINAL: No hematemesis or melena. GENITOURINARY: End-stage renal disease, on hemodialysis INTEGUMENTARY: No skin rashes or history of skin cancer. NEURO: No transient ischemic attacks or amaurosis. PSYCHIATRIC: No history of psychosis or major depression. HEMATOLOGIC: No bleeding disorders or significant anemia. ENDOCRINE: Insulin requiring diabetes MUSCULOSKELETAL: No recent joint pain or swelling. ALLERGY/IMMUNOLOGY: As mentioned above. Medications/Allergies Home Medications Medication Instructions Recorded Confirmed Last Taken Type aspirin 81 mg tablet,delayed 81 mg PO QAM 06/01/19 10/01/23 09/30/23 History release levothyroxine 88 mcg tablet 88 mcg PO QAM 02/09/21 10/01/23 09/30/23 History apixaban 2.5 mg tablet (Eliquis) 2.5 mg PO BID 09/14/21 10/01/23 09/30/23 History insulin degludec 200 unit/mL (3 40 unit SUBCUT QAM 12/11/21 10/01/23 09/30/23 History mL) subcutaneous pen (Tresiba FlexTouch U-200 insulin) sevelamer carbonate 800 mg tablet 800 mg PO TID PRN UNKNOWN 06/18/22 10/01/23 09/30/23 History bumetanide 2 mg tablet See Rx Instructions .Route .COMPLEX 08/16/22 10/01/23 09/30/23 History atorvastatin 40 mg tablet 40 mg PO QAM #90 tabs 10/25/22 10/01/23 09/30/23 Rx blood-glucose meter,continuous 02/27/23 10/01/23 03/15/23 History (Dexcom G7 Social Science Analyst) promethazine 25 mg tablet 25 mg PO Q6H PRN Nausea 02/27/23 10/01/23 03/15/23 History tizanidine 2 mg tablet 2 mg PO BID PRN Muscle Spasm 02/27/23 10/01/23 03/15/23 History vit B,C-folic ac 800 mcg-zinc 12.5 1 tab PO QPM 02/27/23 10/01/23 09/30/23 History mg-selen-D3 2,000 unit-vit E tablet (RenaPlex-D) diphenhydramine HCl 25 mg tablet 50 mg PO DAILY PRN Allergy Symptoms 05/02/23 10/01/23 Unknown History (Benadryl Allergy) insulin lispro 100 unit/mL See Rx Instructions .Route .COMPLEX 05/02/23 10/01/23 07/06/23 History subcutaneous pen (Humalog KwikPen (U-100) Insulin) ranolazine 500 mg tablet,extended 500 mg PO BID 05/02/23 10/01/23 09/30/23 History release,12 hr blood-glucose sensor (Dexcom G7 #9 ea 05/14/23 10/01/23 Unknown Rx Sensor device) clopidogrel 75 mg tablet 75 mg PO DAILY 05/18/23 10/01/23 09/30/23 History gabapentin 100 mg capsule 100 mg PO BID 07/07/23 10/01/23 09/30/23 History meclizine 12.5 mg tablet 12.5 mg PO BID PRN dizziness #14 07/07/23 10/01/23 Unknown Rx tabs bupropion HCl 300 mg 24 hr tablet, 300 mg PO QAM #30 tabs 07/22/23 10/01/23 09/30/23 Rx extended release buspirone 10 mg tablet 10 mg PO BID #60 tabs 07/22/23 10/01/23 09/30/23 Rx fluoxetine 40 mg capsule 40 mg PO DAILY #30 caps 07/22/23 10/01/23 09/30/23 Rx trazodone 100 mg tablet 400 mg (4 x 100 mg) PO BEDTIME 07/22/23 10/01/23 09/30/23 Rx insomnia #120 tabs AFO to left #1 ea 07/25/23 10/01/23 Unknown Rx Diabetic Shoes with Custom insoles #1 ea 07/25/23 10/01/23 Unknown Rx nitroglycerin 0.4 mg sublingual 0.4 mg sublingual Q5M PRN Chest 08/27/23 10/01/23 Unknown Rx tablet (Nitrostat) Pain #25 tabs mupirocin 2 % topical ointment 1 applic topical TID #15 grams 08/28/23 10/01/23 Unknown Rx tirzepatide 15 mg/0.5 mL 15 mg (0.5 mL) SUBCUT Q7D #2 mL 09/12/23 10/01/23 Unknown Rx subcutaneous pen injector (Jennifer) cephalexin 500 mg capsule 500 mg PO 1XD 10 days #40 caps 09/29/23 10/01/23 09/30/23 Rx carvedilol 6.25 mg tablet 6.25 mg PO BID 10/01/23 10/01/23 09/30/23 History hydrocortisone 2.5 % topical cream See Rx Instructions .Route .COMPLEX 10/01/23 10/01/23 Unknown History with perineal applicator (Procto-Med ) isosorbide mononitrate 30 mg See Rx Instructions .Route .COMPLEX 10/01/23 10/01/23 09/30/23 History tablet,extended release 24 hr Allergies Allergy/AdvReac Type Severity Reaction Status Date / Time Iodinated Contrast Media Allergy Severe ALGY-Difficulty Verified 10/01/23 13:30 Breathing iodine Allergy Severe ALGY-Difficulty Verified 10/01/23 13:30 Breathing metoclopramide [From Reglan] Allergy Severe ALGY-Difficulty Verified 10/01/23 13:30 Breathing nalbuphine [From Nubain] Allergy Severe ADR-Diarrhe Verified 10/01/23 13:30 a naproxen [From Naprosyn] Allergy Severe ADR-Vomitin Verified 10/01/23 13:30 g Sulfa (Sulfonamide Allergy Severe ALGY-Difficulty Verified 10/01/23 13:30 Antibiotics) Breathing ketorolac Allergy Intermediate ADR-Nausea Verified 10/01/23 13:30 ondansetron [From Zofran] Allergy Intermediate ADR-Abdominal Verified 10/01/23 13:30 Pain prochlorperazine Allergy Intermediate ADR-Irritab Verified 10/01/23 13:30 [From Compazine] le codeine AdvReac Severe ALGY-Anaphy Verified 10/01/23 13:30 laxis haloperidol [From Haldol] AdvReac Intermediate ADR-Irritab Verified 09/29/23 15:19 le Current Medications Generic Name Dose Route Start Last Admin Trade Name Freq PRN Reason Stop Dose Admin Apixaban 2.5 mg 10/02/23 09:00 10/02/23 09:02 Apixaban 5 Mg Tablet PO 2.5 mg BID RANDY Administration Aspirin 81 mg 10/02/23 06:00 10/02/23 05:24 Aspirin 81 Mg Ec Tablet PO 81 mg QAM RANDY Administration Atorvastatin Calcium 40 mg 10/02/23 06:00 10/02/23 05:24 Atorvastatin 40 Mg Tablet PO 40 mg QAM RANDY Administration Carvedilol 6.25 mg 10/02/23 09:00 10/02/23 09:01 Carvedilol 6.25 Mg Tablet PO 6.25 mg BID RANDY Administration Clopidogrel Bisulfate 75 mg 10/02/23 09:00 10/02/23 09:03 Clopidogrel 75 Mg Tablet PO 75 mg DAILY [facility] Administration Ceftriaxone Sodium 1,000 mg/ 50 mls @ 100 mls/hr 10/02/23 09:00 10/02/23 09:49 Sodium Chloride IV Infused DAILY [facility] Infusion Protocol Insulin Human Lispro 0 unit 10/02/23 08:00 10/02/23 12:25 Insulin Lispro 100 Unit/1 Ml SUBCUT Not Given TIDWM [facility] Protocol Isosorbide Mononitrate 0 mg 10/01/23 20:07 10/02/23 09:03 Isosorbide Mononitrate Er 30 Mg Tablet PO 30 mg DAILY [facility] Administration Levothyroxine Sodium 88 mcg 10/02/23 06:00 10/02/23 05:24 Levothyroxine 88 Mcg Tablet PO 88 mcg QAM [facility] Administration Morphine Sulfate 2 mg 10/01/23 20:07 10/02/23 11:38 Morphine 4 Mg/Ml Sdv 1 Ml IVP 2 mg Q4H PRN Administration SEVERE PAIN Morphine Sulfate 15 mg 10/01/23 20:07 10/02/23 09:18 Morphine Ir 15 Mg Tablet PO 15 mg Q6H PRN Administration MODERATE PAIN Pantoprazole Sodium 40 mg 10/02/23 09:00 10/02/23 09:03 Pantoprazole 40 Mg Sdv IVP 40 mg BID RANDY Administration Ranolazine 500 mg 10/02/23 09:00 10/02/23 09:01 Ranolazine (12hr) 500 Mg Tablet PO 500 mg BID RANDY Administration PFSH Acute PFSH: Medical History (Updated 10/02/23 @ 18:16 by Karen Choi MD) ESRD (end stage renal disease) Uremic encephalopathy Generalized anxiety disorder ESRD (end stage renal disease) D-dimer, elevated Acute on chronic congestive heart failure History of pulmonary embolism Diabetes Acute kidney injury superimposed on CKD GERD (gastroesophageal reflux disease) Alcohol use disorder, moderate, in sustained remission Major depressive disorder, recurrent severe without psychotic features DVT (deep venous thrombosis) (~03/2020) Proximal left subclavian, basilic and brachial veins, started eliquis this stay, felt present prior to admission Chronic kidney disease -baseline Cr appears to be around 1.5 Chronic systolic heart failure Atherosclerotic heart disease of [place] coronary artery with other forms of angina pectoris hx of CAD with prior stenting of proximal LAD, LCx, RCA Ischemic cardiomyopathy Onychodystrophy Chronic anticoagulation Eliquis Osteoarthritis of spine Hypothyroidism Hypertension Hyperlipidemia Diabetes Depression Anemia Foot drop, left H/O acute myocardial infarction H/O deep venous thrombosis developed compartment syndrome Surgical History Peritoneal dialysis catheter in situ (06/15/21) History of appendectomy 1995 History of excision of mass 06/08/2019: Subcutaneous mass on back History of removal of Port-a-Cath Port-A-Cath in place H/O vasectomy Hx of cholecystectomy History of coronary artery stent placement 5x H/O skin graft History of inguinal hernia repair, bilateral 2000 H/O removal of testicle left H/O colonoscopy (11/14/20) 08/2015 H/O esophagogastroduodenoscopy (11/14/20) 08/2015 Family History Grandfather Cancer skin cancer Parkinson disease Brother Hypertension Father Heart disease Mother Hypertension Stroke Aneurysm Grandmother Aneurysm Other Crohn's disease Denies family history of Anesthesia complication Bleeding disorder Social History Smoking and tobacco/nicotine status: never used tobacco/nicotine Second hand smoke exposure: No Alcohol intake: former Year of sobriety/quit date alcohol: 2015 Former alcohol use details: Only holidays Substance/Drug Use: never Lives independently: Yes Household members: significant other Marital status: Single Current occupational status: disabled Vitals/I&O/Wt Last Vital Signs Temp 98.5 F 10/02/23 13:00 Pulse 80 10/02/23 13:00 Resp 18 10/02/23 13:00 BP 122/45 10/02/23 13:00 Pulse Ox 93 10/02/23 13:00 O2 Del Method Room Air 10/02/23 13:00 10/02/23 10/02/23 10/02/23 06:59 14:59 22:59 Intake Total 50 / 290 530 / 530 Balance 50 / 290 530 / 530 Weight last 48 hrs Weight 243 lb 9.6 oz Weight 238 lb Physical Exam Narrative: GENERAL: The patient is alert and oriented times three. Not in any acute distress. HEENT: No significant pallor, icterus or lymphadenopathy.Oral cavity: There are no mucous membrane lesions. NECK: Trachea appears to be central. No masses noted. No JVD or thyromegaly appreciated. RESPIRATORY: Chest is symmetrical. No intercostals muscle retraction or any accessory muscle activation. There is no chest wall tenderness. Breath sounds are heard bilaterally. No rales or rhonchi heard. No evidence of any consolidation. BREASTS: Deferred. HEART: The heart sounds are normal. No S3 or S4. Short systolic murmur in the lower sternal border. No diastolic murmurs. No pericardial rub ABDOMEN: No vessel pulsations or distention. No tenderness. No organomegaly appreciated. Bowel sounds are normally heard. : Deferred. RECTAL: Deferred. LYMPHATIC: No lymphadenopathy noted in the neck. EXTREMITIES: No edema or cyanosis. No clubbing. MUSCULOSKELETAL: No acute joint deformities or swelling SKIN: There are no significant rashes or ecchymosis NEUROPSYCHIATRIC: The patient is alert and oriented x3. Appears to be in a good mood. No tremors or rigidity noted. Data 10/02/23 04:16 10/02/23 04:16 Other Labs: Laboratory Last Values WBC 7.41 10^3/uL (3.29-11.43) 10/02/23 04:16 RBC 3.63 10^6/uL (3.85-5.65) L 10/02/23 04:16 Hgb 12.00 g/dL (11.27-16.99) 10/02/23 04:16 Hct 35.9 % (37-53) L 10/02/23 04:16 MCV 98.9 fl (82-101) 10/02/23 04:16 MCH 33.1 pg (27-33) H 10/02/23 04:16 MCHC 33.4 g/dL (30-55) 10/02/23 04:16 RDW 14.2 % (12.1-15.1) 10/02/23 04:16 Plt Count 220 10^3/cmm (157-399) 10/02/23 04:16 MPV 9.1 fL (7.4-10.4) 10/02/23 04:16 Neut % (Auto) 63.6 % 10/02/23 04:16 Lymph % (Auto) 24.3 % 10/02/23 04:16 [place] % (Auto) 8.6 % 10/02/23 04:16 Eos % (Auto) 2.2 % 10/02/23 04:16 Baso % (Auto) 0.9 % 10/02/23 04:16 Neut # (Auto) 4.71 10^3/uL (1.8-7.7) 10/02/23 04:16 Lymph # (Auto) 1.8 10^3/uL (0.8-4.8) 10/02/23 04:16 [place] # (Auto) 0.6 10^3/uL (0.2-0.9) 10/02/23 04:16 Eos # (Auto) 0.2 10^3/uL (0.0-0.8) 10/02/23 04:16 Baso # (Auto) 0.1 10^3/uL (0.0-0.1) 10/02/23 04:16 Nucleated RBC % (auto) 0 % 10/02/23 04:16 Nucleated RBCs # 0.0 /100WBC 10/02/23 04:16 D-Dimer 0.51 ug/mLFEU (0-0.59) 10/01/23 14:00 Sodium 141 mmol/L (136-145) 10/02/23 04:16 Potassium 3.6 mmol/L (3.5-5.1) 10/02/23 04:16 Chloride 100 mmol/L (98-107) 10/02/23 04:16 Carbon Dioxide 31 mmol/L (22-29) H 10/02/23 04:16 Anion Gap 13.6 (5-19) 10/02/23 04:16 BUN 15 mg/dL (6-20) 10/02/23 04:16 Creatinine 2.7 mg/dL (0.7-1.2) H 10/02/23 04:16 GFR Calculation 24.7 mL/min (90-130) L 10/02/23 04:16 Glucose 82 mg/dL (65-115) 10/02/23 04:16 POC Glucose 122 mg/dL (70-110) H 10/02/23 16:56 Calculated Osmolality 292 mOsm/kg (285-295) 10/02/23 04:16 Calcium 8.7 mg/dL (8.5-10.5) 10/02/23 04:16 Magnesium 1.9 mg/dL (1.7-2.3) 10/02/23 04:16 Total Bilirubin 0.5 mg/dL (0.15-1.2) 10/01/23 14:00 AST 16 U/L (0-40) 10/01/23 14:00 ALT 15 U/L (0-41) 10/01/23 14:00 Alkaline Phosphatase 86 U/L (40-130) 10/01/23 14:00 Troponin T Baseline 72 ng/L (0-15) H 10/02/23 02:47 Troponin T 120 Minute 70.33 ng/L (0-15) H 10/02/23 04:16 Delta Troponin T -1.67 ABS# (0-10) L 10/02/23 04:16 Troponin T Hi Sens 6Hr 75.00 ng/L (0-15) H 10/02/23 09:08 Troponin T Hi Sens 6Hr Delta 3.00 ng/L (0-12) 10/02/23 09:08 Total Protein 7.0 g/dL (6.6-8.7) 10/01/23 14:00 Albumin 3.9 g/dL (3.5-5.2) 10/01/23 14:00 Globulin 3.1 g/dL (1.3-4.6) 10/01/23 14:00 Urine Color Dark yellow (Yellow) 10/01/23 16:23 Urine Appearance Cloudy (CLEAR) A 10/01/23 16:23 Urine pH 6 (5-7) 10/01/23 16:23 Ur Specific [place] 1.020 (1.005-1.030) 10/01/23 16:23 Urine Protein 3+ (Negative) H 10/01/23 16:23 Urine Glucose (UA) Trace (Normal) H 10/01/23 16:23 Urine Ketones Negative (Negative) 10/01/23 16:23 Urine Blood Neg (Negative) 10/01/23 16:23 Urine Nitrate Negative (Negative) 10/01/23 16:23 Urine Bilirubin Neg (Negative) 10/01/23 16:23 Urine Urobilinogen Norm mg/dL (Negative) 10/01/23 16:23 Ur Leukocyte Esterase 1+ (Negative) H 10/01/23 16:23 Urine RBC 0-4 /hpf (0-2) H 10/01/23 16:23 Urine WBC >100 /hpf (0-5) H 10/01/23 16:23 Ur Squamous Epith Cells 0-4 /hpf (0-5) H 10/01/23 16:23 Ur Transition Epith Cell 0-4 /hpf 10/01/23 16:23 Amorphous Sediment Not Reportable 10/01/23 16:23 Urine Bacteria 1+ /hpf (NONE) H 10/01/23 16:23 Hyaline Casts 5-10 /lpf H 10/01/23 16:23 Fine Granular Casts 0-4 /lpf H 10/01/23 16:23 Urine Mucus None /hpf 10/01/23 16:23 Micro: Microbiology 10/01/23 20:40 Blood Culture - Preliminary Blood SPECIMEN COLLECTED 10/01/23 20:45 Blood Culture - Preliminary Blood SPECIMEN COLLECTED Other data: The EKG showed normal sinus rhythm with nonspecific ST-T changes. Poor R wave progression. Minimal left axis deviation. MPI today 1. Abnormal myocardial perfusion imaging with large areas of prior infarcts seen in the LAD, RCA and left circumflex artery territories. 2. LV systolic function is moderate to severely reduced with EF of 36% Most recent cardiac realization in April 2023 * Left Main has no significant disease. * Left Anterior Descending has patent prior stents. * Circumflex has patent prior stent. OM 1 also has a patent prior stent. Has diffuse luminal irregularities . * Proximal Right Coronary Artery: mild 40% stenosis, [place]: 3 flow. * Mid Right Coronary Artery: moderate 50% stenosis, [place]: 3 flow. * Coronary angiography shows right dominance A&P Assessment and plan (1) Chest pain: The patient's chest pain is atypical. The EKG changes are nonspecific and chronic. No evidence of ischemia based on the perfusion scan. I discussed with the patient in detail the implication of the test findings. In the absence of any objective evidence of ischemia and also in view of the multiple angiograms in the past showing no evidence of any hemodynamically significant stenosis, it may be appropriate to continue the medical treatment. The fact that the patient is requesting for morphine and refusing to take the nitro also may suggest a noncardiac cause for the chest pain. Qualifiers: Chest pain type: unspecified Qualified Code(s): R07.9 - Chest pain, unspecified (2) Atherosclerotic heart disease of [place] coronary artery with other forms of angina pectoris: Patient had multiple cardiac catheterization in the past. Most recent one was in April of last year. The angiogram findings are as mentioned above. May continue on the current medications. (3) Chronic anticoagulation: Patient is on Eliquis. Seems to be tolerating well. (4) Hyperlipidemia: May continue on the current medication. Qualifiers: Hyperlipidemia type: mixed hyperlipidemia Qualified Code(s): E78.2 - Mixed hyperlipidemia (5) Peripheral arterial disease: Fairly asymptomatic. May continue on the current medications. (6) ESRD (end stage renal disease): Patient is on hemodialysis. Currently has no evidence of any heart failure. May continue on the current schedule. Plan Patient may be kept on the current medications for the time being. Based on my evaluation, he may not require any further workup for the coronary ischemia. From a cardiac standpoint, he may be discharged home either today or in the morning Consult Attestations Medical Necessity Statement: Deferred to the primary Coding Level of Care Code 39021 Diagnoses Chest pain R07.9 Chest pain type: unspecified Atherosclerotic heart disease of [place] coronary 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 Chronic anticoagulation Z79.01 Mixed hyperlipidemia E78.2 Hyperlipidemia type: mixed hyperlipidemia Peripheral arterial disease I73.9 ESRD (end stage renal disease) N18.6
--- NOTE | 2023-10-02 16:27 | PC.NURSE ---
Patient complained of nausea but is allergic to zofran and reglan. Nurse asked patient what happens when he takes zofran or reglan to which patient replied i get more nauseous. Nurse asked Dr. Etienne what patient could have for nausea and told him what the patient's allergies to zofran was. said he would go ahead and give the patient zofran. by the time the nurse came back in the room, the patient was snoring.
[2023-10-02 17:32] LABS: Glucose Point of Care 122 mg/dL (70-110)
--- NOTE | 2023-10-02 17:50 | P.CONIM_ITS ---
Providers/Reason For Consult 2 Consulting Physician/Specialty*: kommana/Nephrology Reason for Consult*: esrd Attending Physician: Rosi Etienne MD Primary Care Provider: pK Montanez DO History of Present Illness History of Present Illness Rei Queen II is a 53 year old male Patient is a 53-year-old male with known past medical history of coronary artery disease end-stage renal disease, hypertension presented to the emergency department due to chest discomfort. Patient has been evaluated by cardiology. Patient also was found to have UTI. Patient is on TTS schedule for his dialysis. He currently denies any complaints. . Review of Systems 2 Narrative: negative Medications/Allergies Home Medications Medication Instructions Recorded Confirmed Last Taken Type aspirin 81 mg tablet,delayed 81 mg PO QAM 06/01/19 10/01/23 09/30/23 History release levothyroxine 88 mcg tablet 88 mcg PO QAM 02/09/21 10/01/23 09/30/23 History apixaban 2.5 mg tablet (Eliquis) 2.5 mg PO BID 09/14/21 10/01/23 09/30/23 History insulin degludec 200 unit/mL (3 40 unit SUBCUT QAM 12/11/21 10/01/23 09/30/23 History mL) subcutaneous pen (Tresiba FlexTouch U-200 insulin) sevelamer carbonate 800 mg tablet 800 mg PO TID PRN UNKNOWN 06/18/22 10/01/23 09/30/23 History bumetanide 2 mg tablet See Rx Instructions .Route .COMPLEX 08/16/22 10/01/23 09/30/23 History atorvastatin 40 mg tablet 40 mg PO QAM #90 tabs 10/25/22 10/01/23 09/30/23 Rx blood-glucose meter,continuous 02/27/23 10/01/23 03/15/23 History (Dexcom G7 [employer]) promethazine 25 mg tablet 25 mg PO Q6H PRN Nausea 02/27/23 10/01/23 03/15/23 History tizanidine 2 mg tablet 2 mg PO BID PRN Muscle Spasm 02/27/23 10/01/23 03/15/23 History vit B,C-folic ac 800 mcg-zinc 12.5 1 tab PO QPM 02/27/23 10/01/23 09/30/23 History mg-selen-D3 2,000 unit-vit E tablet (RenaPlex-D) diphenhydramine HCl 25 mg tablet 50 mg PO DAILY PRN Allergy Symptoms 05/02/23 10/01/23 Unknown History (Benadryl Allergy) insulin lispro 100 unit/mL See Rx Instructions .Route .COMPLEX 05/02/23 10/01/23 07/06/23 History subcutaneous pen (Humalog KwikPen (U-100) Insulin) ranolazine 500 mg tablet,extended 500 mg PO BID 05/02/23 10/01/23 09/30/23 History release,12 hr blood-glucose sensor (Dexcom G7 #9 ea 05/14/23 10/01/23 Unknown Rx Sensor device) clopidogrel 75 mg tablet 75 mg PO DAILY 05/18/23 10/01/23 09/30/23 History gabapentin 100 mg capsule 100 mg PO BID 07/07/23 10/01/23 09/30/23 History meclizine 12.5 mg tablet 12.5 mg PO BID PRN dizziness #14 07/07/23 10/01/23 Unknown Rx tabs bupropion HCl 300 mg 24 hr tablet, 300 mg PO QAM #30 tabs 07/22/23 10/01/23 09/30/23 Rx extended release buspirone 10 mg tablet 10 mg PO BID #60 tabs 07/22/23 10/01/23 09/30/23 Rx fluoxetine 40 mg capsule 40 mg PO DAILY #30 caps 07/22/23 10/01/23 09/30/23 Rx trazodone 100 mg tablet 400 mg (4 x 100 mg) PO BEDTIME 07/22/23 10/01/23 09/30/23 Rx insomnia #120 tabs AFO to left #1 ea 07/25/23 10/01/23 Unknown Rx Diabetic Shoes with Custom insoles #1 ea 07/25/23 10/01/23 Unknown Rx nitroglycerin 0.4 mg sublingual 0.4 mg sublingual Q5M PRN Chest 08/27/23 10/01/23 Unknown Rx tablet (Nitrostat) Pain #25 tabs mupirocin 2 % topical ointment 1 applic topical TID #15 grams 08/28/23 10/01/23 Unknown Rx tirzepatide 15 mg/0.5 mL 15 mg (0.5 mL) SUBCUT Q7D #2 mL 09/12/23 10/01/23 Unknown Rx subcutaneous pen injector (Jennifer) cephalexin 500 mg capsule 500 mg PO 1XD 10 days #40 caps 09/29/23 10/01/23 09/30/23 Rx carvedilol 6.25 mg tablet 6.25 mg PO BID 10/01/23 10/01/23 09/30/23 History hydrocortisone 2.5 % topical cream See Rx Instructions .Route .COMPLEX 10/01/23 10/01/23 Unknown History with perineal applicator (Procto-Med ) isosorbide mononitrate 30 mg See Rx Instructions .Route .COMPLEX 10/01/23 10/01/23 09/30/23 History tablet,extended release 24 hr Allergies Allergy/AdvReac Type Severity Reaction Status Date / Time Iodinated Contrast Media Allergy Severe ALGY-Difficulty Verified 10/01/23 13:30 Breathing iodine Allergy Severe ALGY-Difficulty Verified 10/01/23 13:30 Breathing metoclopramide [From Reglan] Allergy Severe ALGY-Difficulty Verified 10/01/23 13:30 Breathing nalbuphine [From Nubain] Allergy Severe ADR-Diarrhe Verified 10/01/23 13:30 a naproxen [From Naprosyn] Allergy Severe ADR-Vomitin Verified 10/01/23 13:30 g Sulfa (Sulfonamide Allergy Severe ALGY-Difficulty Verified 10/01/23 13:30 Antibiotics) Breathing ketorolac Allergy Intermediate ADR-Nausea Verified 10/01/23 13:30 ondansetron [From Zofran] Allergy Intermediate ADR-Abdominal Verified 10/01/23 13:30 Pain prochlorperazine Allergy Intermediate ADR-Irritab Verified 10/01/23 13:30 [From Compazine] le codeine AdvReac Severe ALGY-Anaphy Verified 10/01/23 13:30 laxis haloperidol [From Haldol] AdvReac Intermediate ADR-Irritab Verified 09/29/23 15:19 le Current Medications Generic Name Dose Route Start Last Admin Trade Name Freq PRN Reason Stop Dose Admin Apixaban 2.5 mg 10/02/23 09:00 10/02/23 09:02 Apixaban 5 Mg Tablet PO 2.5 mg BID RANDY Administration Aspirin 81 mg 10/02/23 06:00 10/02/23 05:24 Aspirin 81 Mg Ec Tablet PO 81 mg QAM RANDY Administration Atorvastatin Calcium 40 mg 10/02/23 06:00 10/02/23 05:24 Atorvastatin 40 Mg Tablet PO 40 mg QAM RANDY Administration Carvedilol 6.25 mg 10/02/23 09:00 10/02/23 09:01 Carvedilol 6.25 Mg Tablet PO 6.25 mg BID [facility] Administration Clopidogrel Bisulfate 75 mg 10/02/23 09:00 10/02/23 09:03 Clopidogrel 75 Mg Tablet PO 75 mg DAILY [facility] Administration Ceftriaxone Sodium 1,000 mg/ 50 mls @ 100 mls/hr 10/02/23 09:00 10/02/23 09:49 Sodium Chloride IV Infused DAILY [facility] Infusion Protocol Insulin Human Lispro 0 unit 10/02/23 08:00 10/02/23 12:25 Insulin Lispro 100 Unit/1 Ml SUBCUT Not Given TIDWM [facility] Protocol Isosorbide Mononitrate 0 mg 10/01/23 20:07 10/02/23 09:03 Isosorbide Mononitrate Er 30 Mg Tablet PO 30 mg DAILY [facility] Administration Levothyroxine Sodium 88 mcg 10/02/23 06:00 10/02/23 05:24 Levothyroxine 88 Mcg Tablet PO 88 mcg QAM [facility] Administration Morphine Sulfate 2 mg 10/01/23 20:07 10/02/23 11:38 Morphine 4 Mg/Ml Sdv 1 Ml IVP 2 mg Q4H PRN Administration SEVERE PAIN Morphine Sulfate 15 mg 10/01/23 20:07 10/02/23 09:18 Morphine Ir 15 Mg Tablet PO 15 mg Q6H PRN Administration MODERATE PAIN Pantoprazole Sodium 40 mg 10/02/23 09:00 10/02/23 09:03 Pantoprazole 40 Mg Sdv IVP 40 mg BID RANDY Administration Ranolazine 500 mg 10/02/23 09:00 10/02/23 09:01 Ranolazine (12hr) 500 Mg Tablet PO 500 mg BID RANDY Administration PFSH Acute 2 PFSH: Medical History (Updated 10/02/23 @ 18:16 by Karen Choi MD) ESRD (end stage renal disease) Uremic encephalopathy Generalized anxiety disorder ESRD (end stage renal disease) D-dimer, elevated Acute on chronic congestive heart failure History of pulmonary embolism Diabetes Acute kidney injury superimposed on CKD GERD (gastroesophageal reflux disease) Alcohol use disorder, moderate, in sustained remission Major depressive disorder, recurrent severe without psychotic features DVT (deep venous thrombosis) (~03/2020) Proximal left subclavian, basilic and brachial veins, started eliquis this stay, felt present prior to admission Chronic kidney disease -baseline Cr appears to be around 1.5 Chronic systolic heart failure Atherosclerotic heart disease of [place] coronary artery with other forms of angina pectoris hx of CAD with prior stenting of proximal LAD, LCx, RCA Ischemic cardiomyopathy Onychodystrophy Chronic anticoagulation Eliquis Osteoarthritis of spine Hypothyroidism Hypertension Hyperlipidemia Diabetes Depression Anemia Foot drop, left H/O acute myocardial infarction H/O deep venous thrombosis developed compartment syndrome Surgical History Peritoneal dialysis catheter in situ (06/15/21) History of appendectomy 1995 History of excision of mass 06/08/2019: Subcutaneous mass on back History of removal of Port-a-Cath Port-A-Cath in place H/O vasectomy Hx of cholecystectomy History of coronary artery stent placement 5x H/O skin graft History of inguinal hernia repair, bilateral 1999 H/O removal of testicle left H/O colonoscopy (11/14/20) 08/2015 H/O esophagogastroduodenoscopy (11/14/20) 08/2015 Family History Grandfather Cancer skin cancer Parkinson disease Brother Hypertension Father Heart disease Mother Hypertension Stroke Aneurysm Grandmother Aneurysm Other Crohn's disease Denies family history of Anesthesia complication Bleeding disorder Social History Smoking and tobacco/nicotine status: never used tobacco/nicotine Second hand smoke exposure: No Alcohol intake: former Year of sobriety/quit date alcohol: 2015 Former alcohol use details: Only holidays Substance/Drug Use: never Lives independently: Yes Household members: significant other Marital status: Single Current occupational status: disabled Vitals/I&O/Wt Last Vital Signs Temp 98.0 F 10/02/23 16:53 Pulse 85 10/02/23 16:53 Resp 19 H 10/02/23 16:53 BP 141/64 05/15/24 16:53 Pulse Ox 92 10/02/23 16:53 O2 Del Method Room Air 10/02/23 16:53 10/02/23 10/02/23 10/02/23 06:59 14:59 22:59 Intake Total 50 / 290 530 / 530 Balance 50 / 290 530 / 530 Weight last 48 hrs Weight 110.495 kg Weight 107.955 kg Physical Exam 2 Narrative: awake , alert , no distress Data 10/02/23 04:16 10/02/23 04:16 Micro: Microbiology 10/01/23 20:40 Blood Culture - Preliminary Blood SPECIMEN COLLECTED 10/01/23 20:45 Blood Culture - Preliminary Blood SPECIMEN COLLECTED A&P Assessment and plan (1) ESRD (end stage renal disease): Plan 1. End-stage renal disease: On TTS schedule, plan for HD tomorrow no acute indication for HD today, UF as tolerated 2. History of hypertension, blood pressure controlled 3. Coronary artery disease with prior stents, followed by cardiology 4. Anemia: Hemoglobin 12, monitor Patient evaluated using audiovisual cart. Time spent 40 minutes Consult Attestations 2 Medical Necessity Statement: per jersey smith Coding Level of Care Code Acute Code for Chg Fwd Diagnoses ESRD (end stage renal disease) N18.6
--- NOTE | 2023-10-02 20:07 | NMCV_ITS ---
NM michelle perf SPECT r/s* [id number] Rei Queen Age: 53 Gender: M : 1970 Exam Date: 10/02/2023 06:24 Ordering Phys: Rosi Etienne MD Technologist: BALDEMAR Hutchison Exam Location: [facility] Indications: CHEST PAIN STRESS TEST Please see separate stress test report in [facility] for full findings IMAGE PROTOCOL Rest/Stress 1 Lexiscan Day Radiopharmaceutical Dose (mCi) Administration Site Administered by Rest: Tc-99m 10.9 IV BALDEAMR Johnston Sestamibi Stress:Tc-99m 33.0 IV BALDEMAR Johnston Sestamibi Rest: 02-Oct-2023 60 Discovery 630 Stress: 02-Oct-2023 30 Discovery 630 0.4mg Lexiscan. Supine position only as patient was unable to lay prone. SPECT RESULTS Technical Quality: Excellent Raw Data Analysis: Normal Image Corrections: No attenuation or motion correction applied Summed Stress Score: 18 Summed Rest Score: 22 Summed Difference Score: 0 PERFUSION FINDINGS Large sized area of fixed perfusion defect is seen in the anterior, apical, apical anterior rizzo. This is consistent with large area of prior infarct in the LAD territory. Large areas of fixed perfusion defect is seen in apical inferior and apical lateral rizzo. This is consistent with large area of prior infarct seen in RCA and left circumflex artery territories. FUNCTIONAL RESULTS (calculated via Gated SPECT) Stress Image LV EF (%): 36 Stress EDV (mL):200 TID: 0.98 Stress ESV (mL):128 FUNCTIONAL FINDINGS: LV systolic function moderate to severely reduced with EF of 36%. IMPRESSIONS 1. Abnormal myocardial perfusion imaging with large areas of prior infarcts seen in the LAD, RCA and left circumflex artery territories. 2. LV systolic function is moderate to severely reduced with EF of 36% Garrison Mckinney MD (Electronically Signed) Final Date: 02 Oct 2023 09:57 S
[2023-10-02 20:10] LABS: Glucose Point of Care 126 mg/dL (70-110)
[2023-10-03] VITALS (54 sets, daily range): BP systolic 114–146; BP diastolic 55–89; PULSE 84–90; RESP 18; TEMP 36.3–36.9; O2SAT 95
[2023-10-03] MEDS: aspirin 81 mg EC Tablet PO (05:07)
[2023-10-03] MEDS: levothyroxine 88 mcg Tablet PO (05:07)
[2023-10-03] MEDS: atorvastatin 40 mg Tablet PO (05:07)
[2023-10-03 05:23] LABS: Basophils # 0.1 10^3/uL (0.0-0.1); Basophils % 0.5 %; Eosinophils # 0.2 10^3/uL (0.0-0.8); Eosinophils % 1.8 %; Lymphocytes # 0.8 10^3/uL (0.8-4.8); Lymphocytes % 6.8 %; Mean Corpuscular HGB Conc 32.5 g/dL (30-55); Mean Corpuscular Hemoglobin 33.1 pg (27-33); Monocytes # 0.7 10^3/uL (0.2-0.9); Monocytes % 6.5 %; Neutrophils # 9.32 10^3/uL (1.8-7.7); Neutrophils % 83.8 %; Nucleated Red Blood Cells % 0 %; Platelet Count 220 10^3/cmm (157-399); Red Blood Count 3.53 10^6/uL (3.85-5.65); Red Cell Distribution Width 14.1 % (12.1-15.1); White Blood Count 11.13 10^3/uL (3.29-11.43)
[2023-10-03 05:47] LABS: Anion Gap 12.7 (5-19); Blood Urea Nitrogen 23 mg/dL (6-20); Calcium 8.6 mg/dL (8.5-10.5); Carbon Dioxide 31 mmol/L (22-29); Chloride 98 mmol/L (98-107); Glomerular Filtration Rate 14.8 mL/min (90-130); Glucose 121 mg/dL (65-115); Osmolality Calculated 289 mOsm/kg (285-295); Potassium 4.7 mmol/L (3.5-5.1); Sodium 137 mmol/L (136-145)
[2023-10-03 05:49] LABS: Creatinine Clr Calc Pharmacy 23.1833
[2023-10-03 06:22] LABS: Glucose Point of Care 122 mg/dL (70-110)
--- NOTE | 2023-10-03 08:02 | P.PN_ITS ---
Subjective 2 Medications: Medication Review Details: Current Medications Acetaminophen (Acetaminophen 500 Mg Tablet) 500 mg PO Q4H PRN PRN Reason: fever Albuterol/Ipratropium (Ipratropium-Albuterol 3 Ml Neb) 3 ml INHALATION Q6H PRN PRN Reason: SHORTNESS OF BREATH Apixaban (Apixaban 5 Mg Tablet) 2.5 mg PO BID [facility] Last Admin: 10/02/23 09:02 Dose: 2.5 mg Aspirin (Aspirin 81 Mg Ec Tablet) 81 mg PO QAM [facility] Last Admin: 10/03/23 05:07 Dose: 81 mg Atorvastatin Calcium (Atorvastatin 40 Mg Tablet) 40 mg PO QAM [facility] Last Admin: 10/03/23 05:07 Dose: 40 mg Carvedilol (Carvedilol 6.25 Mg Tablet) 6.25 mg PO BID [facility] Last Admin: 10/02/23 17:50 Dose: 6.25 mg Clopidogrel Bisulfate (Clopidogrel 75 Mg Tablet) 75 mg PO DAILY [facility] Last Admin: 10/02/23 09:03 Dose: 75 mg Dextrose (D5w) 500 mls @ 0 mls/hr IV ONCE PRN; Protocol PRN Reason: Adult Acute Hypoglycemia Prot Dextrose (D10w) 125 mls @ 750 mls/hr IV PRN PRN; Protocol PRN Reason: Adult Acute Hypoglycemia Nursing Protocol Dextrose (D10w) 250 mls @ 1,000 mls/hr IV PRN PRN; Protocol PRN Reason: Adult Acute Hypoglycemia Nursing Protocol Ceftriaxone Sodium 1,000 mg/ (Sodium Chloride) 50 mls @ 100 mls/hr IV DAILY [facility]; Protocol Last Infusion: 10/02/23 09:49 Dose: Infused Sodium Chloride (Sodium Chloride 0.9%) 1,000 mls @ 0 mls/hr IV .Q0M PRN PRN Reason: hypotension or symptomatic Albumin Human (Albumin) 12.5 gm in 50 mls @ 60 mls/hr IV PRN PRN PRN Reason: Hypotension and/or symptomatic Insulin Human Lispro (Insulin Lispro 100 Unit/1 Ml) 0 unit SUBCUT TIDWM [facility]; Protocol Last Admin: 10/03/23 07:14 Dose: Not Given Isosorbide Mononitrate (Isosorbide Mononitrate Er 30 Mg Tablet) 0 mg PO DAILY [facility] Last Admin: 10/02/23 09:03 Dose: 30 mg Levothyroxine Sodium (Levothyroxine 88 Mcg Tablet) 88 mcg PO QAM [facility] Last Admin: 10/03/23 05:07 Dose: 88 mcg Morphine Sulfate (Morphine 4 Mg/Ml Sdv 1 Ml) 2 mg IVP Q4H PRN PRN Reason: SEVERE PAIN Last Admin: 10/02/23 19:26 Dose: 2 mg Morphine Sulfate (Morphine Ir 15 Mg Tablet) 15 mg PO Q6H PRN PRN Reason: MODERATE PAIN Last Admin: 10/02/23 17:51 Dose: 15 mg Non-Formulary Medication (Vit B,B-Gy-Rzlx-Selen-Vit D3-E [Renaplex-D]) 1 tab PO QPM [facility] Last Admin: 10/02/23 17:52 Dose: Not Given Ondansetron HCl (Ondansetron 2 Mg/Ml Sdv 2 Ml) 4 mg IVP Q6H PRN PRN Reason: NAUSEA AND VOMITING Ondansetron HCl (Ondansetron 2 Mg/Ml Sdv 2 Ml) 4 mg IVP Q2M PRN PRN Reason: NAUSEA Pantoprazole Sodium (Pantoprazole 40 Mg Sdv) 40 mg IVP BID [facility] Last Admin: 10/02/23 17:51 Dose: 40 mg Ranolazine (Ranolazine (12hr) 500 Mg Tablet) 500 mg PO BID [facility] Last Admin: 10/02/23 17:51 Dose: 500 mg Sevelamer Carbonate (Sevelamer 800 Mg Tablet) 800 mg PO TID PRN PRN Reason: UNKNOWN Tizanidine HCl (Tizanidine 4 Mg Tablet) 2 mg PO BID PRN PRN Reason: Muscle Spasm Vitals/I&O/Wt Last Vital Signs Temp 98.5 F 10/03/23 01:00 Pulse 84 10/03/23 03:49 Resp 18 10/03/23 03:49 BP 130/89 10/03/23 03:49 Pulse Ox 95 10/03/23 03:49 O2 Del Method Room Air 10/03/23 03:49 10/02/23 10/03/23 10/03/23 22:59 06:59 14:59 Intake Total 240 / 770 Balance 240 / 770 Weight last 48 hrs Weight 243 lb Weight 243 lb 9.6 oz Weight 238 lb Physical Exam 2 Narrative: GENERAL: The patient is alert and oriented times three. Not in any acute distress. HEENT: No significant pallor, icterus or lymphadenopathy.Oral cavity: There are no mucous membrane lesions. NECK: Trachea appears to be central. No masses noted. No JVD or thyromegaly appreciated. RESPIRATORY: Chest is symmetrical. No intercostals muscle retraction or any accessory muscle activation. There is no chest wall tenderness. Breath sounds are heard bilaterally. No rales or rhonchi heard. No evidence of any consolidation. BREASTS: Deferred. HEART: The heart sounds are normal. No S3 or S4. Short systolic murmur in the lower sternal border. No diastolic murmurs. No pericardial rub ABDOMEN: No vessel pulsations or distention. No tenderness. No organomegaly appreciated. Bowel sounds are normally heard. : Deferred. RECTAL: Deferred. LYMPHATIC: No lymphadenopathy noted in the neck. EXTREMITIES: No edema or cyanosis. No clubbing. MUSCULOSKELETAL: No acute joint deformities or swelling SKIN: There are no significant rashes or ecchymosis NEUROPSYCHIATRIC: The patient is alert and oriented x3. Appears to be in a good mood. No tremors or rigidity noted. Data 10/03/23 04:44 10/03/23 04:44 Other Labs: Laboratory Last Values WBC 11.13 10^3/uL (3.29-11.43) 10/03/23 04:44 RBC 3.53 10^6/uL (3.85-5.65) L 10/03/23 04:44 Hgb 11.70 g/dL (11.27-16.99) 10/03/23 04:44 Hct 36.0 % (37-53) L 10/03/23 04:44 MCV 102.0 fl (82-101) H 10/03/23 04:44 MCH 33.1 pg (27-33) H 10/03/23 04:44 MCHC 32.5 g/dL (30-55) 10/03/23 04:44 RDW 14.1 % (12.1-15.1) 10/03/23 04:44 Plt Count 220 10^3/cmm (157-399) 10/03/23 04:44 MPV 9.0 fL (7.4-10.4) 10/03/23 04:44 Neut % (Auto) 83.8 % 10/03/23 04:44 Lymph % (Auto) 6.8 % 10/03/23 04:44 [place] % (Auto) 6.5 % 10/03/23 04:44 Eos % (Auto) 1.8 % 10/03/23 04:44 Baso % (Auto) 0.5 % 10/03/23 04:44 Neut # (Auto) 9.32 10^3/uL (1.8-7.7) H 10/03/23 04:44 Lymph # (Auto) 0.8 10^3/uL (0.8-4.8) 10/03/23 04:44 [place] # (Auto) 0.7 10^3/uL (0.2-0.9) 10/03/23 04:44 Eos # (Auto) 0.2 10^3/uL (0.0-0.8) 10/03/23 04:44 Baso # (Auto) 0.1 10^3/uL (0.0-0.1) 10/03/23 04:44 Nucleated RBC % (auto) 0 % 10/03/23 04:44 Nucleated RBCs # 0.0 /100WBC 10/03/23 04:44 D-Dimer 0.51 ug/mLFEU (0-0.59) 10/01/23 14:00 Sodium 137 mmol/L (136-145) 10/03/23 04:44 Potassium 4.7 mmol/L (3.5-5.1) 10/03/23 04:44 Chloride 98 mmol/L (98-107) 10/03/23 04:44 Carbon Dioxide 31 mmol/L (22-29) H 10/03/23 04:44 Anion Gap 12.7 (5-19) 10/03/23 04:44 BUN 23 mg/dL (6-20) H 10/03/23 04:44 Creatinine 4.2 mg/dL (0.7-1.2) H 10/03/23 04:44 GFR Calculation 14.8 mL/min (90-130) L 10/03/23 04:44 Glucose 121 mg/dL (65-115) H 10/03/23 04:44 POC Glucose 122 mg/dL (70-110) H 10/03/23 06:16 Calculated Osmolality 289 mOsm/kg (285-295) 10/03/23 04:44 Calcium 8.6 mg/dL (8.5-10.5) 10/03/23 04:44 Magnesium 1.9 mg/dL (1.7-2.3) 10/02/23 04:16 Total Bilirubin 0.5 mg/dL (0.15-1.2) 10/01/23 14:00 AST 16 U/L (0-40) 10/01/23 14:00 ALT 15 U/L (0-41) 10/01/23 14:00 Alkaline Phosphatase 86 U/L (40-130) 10/01/23 14:00 Troponin T Baseline 72 ng/L (0-15) H 10/02/23 02:47 Troponin T 120 Minute 70.33 ng/L (0-15) H 10/02/23 04:16 Delta Troponin T -1.67 ABS# (0-10) L 10/02/23 04:16 Troponin T Hi Sens 6Hr 75.00 ng/L (0-15) H 10/02/23 09:08 Troponin T Hi Sens 6Hr Delta 3.00 ng/L (0-12) 10/02/23 09:08 Total Protein 7.0 g/dL (6.6-8.7) 10/01/23 14:00 Albumin 3.9 g/dL (3.5-5.2) 10/01/23 14:00 Globulin 3.1 g/dL (1.3-4.6) 10/01/23 14:00 Urine Color Dark yellow (Yellow) 10/01/23 16:23 Urine Appearance Cloudy (CLEAR) A 10/01/23 16:23 Urine pH 6 (5-7) 10/01/23 16:23 Ur Specific [place] 1.020 (1.005-1.030) 10/01/23 16:23 Urine Protein 3+ (Negative) H 10/01/23 16:23 Urine Glucose (UA) Trace (Normal) H 10/01/23 16:23 Urine Ketones Negative (Negative) 10/01/23 16:23 Urine Blood Neg (Negative) 10/01/23 16:23 Urine Nitrate Negative (Negative) 10/01/23 16: Urine Bilirubin Neg (Negative) 10/01/23 16:23 Urine Urobilinogen Norm mg/dL (Negative) 10/01/23 16:23 Ur Leukocyte Esterase 1+ (Negative) H 10/01/23 16:23 Urine RBC 0-4 /hpf (0-2) H 10/01/23 16:23 Urine WBC >100 /hpf (0-5) H 10/01/23 16:23 Ur Squamous Epith Cells 0-4 /hpf (0-5) H 10/01/23 16:23 Ur Transition Epith Cell 0-4 /hpf 10/01/23 16:23 Amorphous Sediment Not Reportable 10/01/23 16:23 Urine Bacteria 1+ /hpf (NONE) H 10/01/23 16:23 Hyaline Casts 5-10 /lpf H 10/01/23 16:23 Fine Granular Casts 0-4 /lpf H 10/01/23 16:23 Urine Mucus None /hpf 10/01/23 16:23 Micro: Microbiology 10/01/23 20:45 Blood Culture - Preliminary Blood NEGATIVE TO DATE 10/01/23 20:40 Blood Culture - Preliminary Blood NEGATIVE TO DATE A&P Assessment and plan (1) Chest pain: The patient's chest pain is atypical. The EKG changes are nonspecific and chronic. No evidence of ischemia based on the perfusion scan. I discussed with the patient in detail the implication of the test findings. In the absence of any objective evidence of ischemia and also in view of the multiple angiograms in the past showing no evidence of any hemodynamically significant stenosis, it may be appropriate to continue the medical treatment. The fact that the patient is requesting for morphine and refusing to take the nitro also may suggest a noncardiac cause for the chest pain. Qualifiers: Chest pain type: unspecified Qualified Code(s): R07.9 - Chest pain, unspecified (2) Atherosclerotic heart disease of [place] coronary artery with other forms of angina pectoris: Patient had multiple cardiac catheterization in the past. Most recent one was in April of last year. The angiogram findings are as mentioned above. May continue on the current medications. (3) Chronic anticoagulation: Patient is on Eliquis. Seems to be tolerating well. (4) Hyperlipidemia: May continue on the current medication. Qualifiers: Hyperlipidemia type: mixed hyperlipidemia Qualified Code(s): E78.2 - Mixed hyperlipidemia (5) Peripheral arterial disease: Fairly asymptomatic. May continue on the current medications. (6) ESRD (end stage renal disease): Patient is on hemodialysis. Currently has no evidence of any heart failure. May continue on the current schedule. Plan Patient may be kept on the current medications for the time being. Based on my evaluation, he may not require any further workup for the coronary ischemia. From a cardiac standpoint, he may be discharged home either today or in the morning Coding Level of Care Code Acute Code for [facility] Fwd Diagnoses Chest pain R07.9 Chest pain type: unspecified Atherosclerotic heart disease of [place] coronary 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 Chronic anticoagulation Z79.01 Mixed hyperlipidemia E78.2 Hyperlipidemia type: mixed hyperlipidemia Peripheral arterial disease I73.9 ESRD (end stage renal disease) N18.6
[2023-10-03] MEDS: clopidogrel 75 mg Tablet PO (09:22)
[2023-10-03] MEDS: ranolazine (12HR) 500 mg Tablet PO (09:22)
--- NOTE | 2023-10-03 09:49 | PM.DCS ---
Discharge Providers Date of Admission: 10/01/23 18:29 Date of Discharge: October 03, 2023 Attending Provider at Admission: Rosi Etienne MD Attending Provider at Discharge: Rosi Etienne MD Primary Care Provider: Kp Montanez DO Diagnoses at Discharge Discharge Diagnosis (1) Chest pain: Status: Acute Qualifiers: Chest pain type: unspecified Qualified Code(s): R07.9 - Chest pain, unspecified (2) Atherosclerotic heart disease of [place] coronary artery with other forms of angina pectoris: Status: Acute Permanent problem details: hx of CAD with prior stenting of proximal LAD, LCx, RCA (3) Chronic anticoagulation: Status: Acute Permanent problem details: Eliquis (4) Hyperlipidemia: Status: Acute Qualifiers: Hyperlipidemia type: mixed hyperlipidemia Qualified Code(s): E78.2 - Mixed hyperlipidemia (5) Peripheral arterial disease: Status: Acute (6) ESRD (end stage renal disease): Status: Acute Reason for Visit Reason for Visit: Chest pain Hospital Course Hospital Course 53-year male with established coronary disease 10/27 in the past, has had multiple visits in the ER secondary to chest pain has had multiple angiograms done as well, presented with chief complaint of chest discomfort which he is stating that started during dialysis it would only last for about 10 minutes, he did not experience nausea vomiting or diaphoresis, stating that his chest pressure was radiating towards the left jaw and shoulder, his troponins were trending down echo did not show any wall motion abnormality, stress test showed old infarct related changes, cardiology was consulted who recommended titrating up antianginal medications, cardiology did not recommend it was in because of dialysis status he may continue Imdur 30 mg instead of 50 mg and skip on dialysis days. Medical management recommended by the fire fighting equipment specialist. Please review cardiology note for further detail Patient will be discharged after dialysis today, his schedule is TTS He may resume Eliquis with Plavix discontinue ranolazine and aspirin Physical Exam Narrative: Pleasant cooperative Euvolemic No active chest pain GCS 15 Eating breakfast Discharge Data Studies Completed and Pending Completed Studies During Hospitalization Category Date Time Status Sestamibi Stress Test Request Routine Exams 10/01/23 20:07 Draft XR chest 1V portable [id number] Stat Exams 10/01/23 14:33 Completed NM michelle perf SPECT r/s* [id number] Routine Nuc Med 10/02/23 20:07 Completed CV. echo complete* [id number] Routine Ultrasound 10/01/23 20:07 Completed Pending at discharge Category Date Time Status Blood Culture Stat Lab 10/01/23 20:40 Results Urine Culture Stat Lab 10/01/23 16:23 Received Radiology Impressions Chest X-Ray 10/01/23 14:33 IMPRESSION: 1. No acute findings. 2. Stable coarse reticular opacity in the left lung base. Probable atelectasis or scarring. 3. Stable satisfactory left chest port position. Laboratory Results WBC 11.13 10^3/uL (3.29-11.43) 10/03/23 04:44 RBC 3.53 10^6/uL (3.85-5.65) L 10/03/23 04:44 Hgb 11.70 g/dL (11.27-16.99) 10/03/23 04:44 Hct 36.0 % (37-53) L 10/03/23 04:44 MCV 102.0 fl (82-101) H 10/03/23 04:44 MCH 33.1 pg (27-33) H 10/03/23 04:44 MCHC 32.5 g/dL (30-55) 10/03/23 04:44 RDW 14.1 % (12.1-15.1) 10/03/23 04:44 Plt Count 220 10^3/cmm (157-399) 10/03/23 04:44 MPV 9.0 fL (7.4-10.4) 10/03/23 04:44 Neut % (Auto) 83.8 % 10/03/23 04:44 Lymph % (Auto) 6.8 % 10/03/23 04:44 [place] % (Auto) 6.5 % 10/03/23 04:44 Eos % (Auto) 1.8 % 10/03/23 04:44 Baso % (Auto) 0.5 % 10/03/23 04:44 Neut # (Auto) 9.32 10^3/uL (1.8-7.7) H 10/03/23 04:44 Lymph # (Auto) 0.8 10^3/uL (0.8-4.8) 10/03/23 04:44 [place] # (Auto) 0.7 10^3/uL (0.2-0.9) 10/03/23 04:44 Eos # (Auto) 0.2 10^3/uL (0.0-0.8) 10/03/23 04:44 Baso # (Auto) 0.1 10^3/uL (0.0-0.1) 10/03/23 04:44 Nucleated RBC % (auto) 0 % 10/03/23 04:44 Nucleated RBCs # 0.0 /100WBC 10/03/23 04:44 D-Dimer 0.51 ug/mLFEU (0-0.59) 10/01/23 14:00 Sodium 137 mmol/L (136-145) 10/03/23 04:44 Potassium 4.7 mmol/L (3.5-5.1) 10/03/23 04:44 Chloride 98 mmol/L (98-107) 10/03/23 04:44 Carbon Dioxide 31 mmol/L (22-29) H 10/03/23 04:44 Anion Gap 12.7 (5-19) 10/03/23 04:44 BUN 23 mg/dL (6-20) H 10/03/23 04:44 Creatinine 4.2 mg/dL (0.7-1.2) H 10/03/23 04:44 GFR Calculation 14.8 mL/min (90-130) L 10/03/23 04:44 Glucose 121 mg/dL (65-115) H 10/03/23 04:44 POC Glucose 122 mg/dL (70-110) H 10/03/23 06:16 Calculated Osmolality 289 mOsm/kg (285-295) 10/03/23 04:44 Calcium 8.6 mg/dL (8.5-10.5) 10/03/23 04:44 Magnesium 1.9 mg/dL (1.7-2.3) 10/02/23 04:16 Total Bilirubin 0.5 mg/dL (0.15-1.2) 10/01/23 14:00 AST 16 U/L (0-40) 10/01/23 14:00 ALT 15 U/L (0-41) 10/01/23 14:00 Alkaline Phosphatase 86 U/L (40-130) 10/01/23 14:00 Troponin T Baseline 72 ng/L (0-15) H 10/02/23 02:47 Troponin T 120 Minute 70.33 ng/L (0-15) H 10/02/23 04:16 Delta Troponin T -1.67 ABS# (0-10) L 10/02/23 04:16 Troponin T Hi Sens 6Hr 75.00 ng/L (0-15) H 10/02/23 09:08 Troponin T Hi Sens 6Hr Delta 3.00 ng/L (0-12) 10/02/23 09:08 Total Protein 7.0 g/dL (6.6-8.7) 10/01/23 14:00 Albumin 3.9 g/dL (3.5-5.2) 10/01/23 14:00 Globulin 3.1 g/dL (1.3-4.6) 10/01/23 14:00 Urine Color Dark yellow (Yellow) 10/01/23 16:23 Urine Appearance Cloudy (CLEAR) A 10/01/23 16:23 Urine pH 6 (5-7) 10/01/23 16:23 Ur Specific [place] 1.020 (1.005-1.030) 10/01/23 16:23 Urine Protein 3+ (Negative) H 10/01/23 16:23 Urine Glucose (UA) Trace (Normal) H 10/01/23 16:23 Urine Ketones Negative (Negative) 10/01/23 16:23 Urine Blood Neg (Negative) 10/01/23 16:23 Urine Nitrate Negative (Negative) 10/01/23 16:23 Urine Bilirubin Neg (Negative) 10/01/23 16:23 Urine Urobilinogen Norm mg/dL (Negative) 10/01/23 16:23 Ur Leukocyte Esterase 1+ (Negative) H 10/01/23 16:23 Urine RBC 0-4 /hpf (0-2) H 10/01/23 16:23 Urine WBC >100 /hpf (0-5) H 10/01/23 16:23 Ur Squamous Epith Cells 0-4 /hpf (0-5) H 10/01/23 16:23 Ur Transition Epith Cell 0-4 /hpf 10/01/23 16:23 Amorphous Sediment Not Reportable 10/01/23 16:23 Urine Bacteria 1+ /hpf (NONE) H 10/01/23 16:23 Hyaline Casts 5-10 /lpf H 10/01/23 16:23 Fine Granular Casts 0-4 /lpf H 10/01/23 16:23 Urine Mucus None /hpf 10/01/23 16:23 Vitals Last Vital Signs Temp 98.5 F 10/03/23 01:00 Pulse 84 10/03/23 08:25 Resp 18 10/03/23 08:25 BP 130/89 10/03/23 03:49 Pulse Ox 95 10/03/23 08:25 O2 Del Method Room Air 10/03/23 08:25 Discharge Plan Discharge Patient Disposition: Home Condition: Stable Prescriptions: Continued Eliquis 2.5 mg tablet 2.5 mg PO BID sevelamer carbonate 800 mg tablet 800 mg PO TID PRN (Reason: UNKNOWN) (DME) Dexcom G7 Sensor Device See Rx Instructions .ROUTE .COMPLEX Qty: 9 1RF Dose Instruction: CHANGE every 10 DAYS Rx Instructions: CHANGE every 10 DAYS mupirocin 2 % ointment 1 applic topical TID Qty: 15 0RF Rx Instructions: Apply to wound three times daily and as needed with dressing changes, cover with band-aid. bupropion HCl 300 mg tablet extended release 24 hr 300 mg PO QAM Qty: 30 2RF buspirone 10 mg tablet 10 mg PO BID Qty: 60 2RF fluoxetine 40 mg capsule 40 mg PO DAILY Qty: 30 2RF trazodone 100 mg tablet 400 mg PO BEDTIME Qty: 120 2RF (DME) Diabetic Shoes with Custom insoles See Rx Instructions .Route .MEDSUPPLY Qty: 1 0RF Rx Instructions: As directed (DME) AFO to left See Rx Instructions .Route .MEDSUPPLY Qty: 1 0RF Rx Instructions: As directed by [facility] atorvastatin 40 mg tablet 40 mg PO QAM Qty: 90 2RF nitroglycerin [Nitrostat] 0.4 mg tablet, sublingual 0.4 mg SUBLINGUAL Q5M PRN (Reason: Chest Pain) Qty: 25 2RF Rx Instructions: do not exceed 3 doses per episode Mounjaro 15 mg/0.5 mL pen injector 15 mg SUBCUT Q7D Qty: 2 2RF levothyroxine 88 mcg tablet 88 mcg PO QAM Tresiba FlexTouch U-200 200 unit/mL (3 mL) insulin pen 40 unit SUBCUT QAM gabapentin 100 mg capsule 100 mg PO BID meclizine 12.5 mg tablet 12.5 mg PO BID PRN (Reason: dizziness) Qty: 14 0RF carvedilol 6.25 mg tablet 6.25 mg PO BID Procto-Med HC 2.5 % cream with perineal applicator See Rx Instructions .ROUTE .COMPLEX Rx Instructions: APPLY THIN LAYER TO AFFECTED AREA TWO TO FOUR TIMES A DAY. bumetanide 2 mg tablet See Rx Instructions .ROUTE .COMPLEX Rx Instructions: 2mg (1 tab)po qam and 4mg (2 tabs)in the evening tizanidine 2 mg Tablet 2 mg PO BID PRN (Reason: Muscle Spasm) promethazine 25 mg tablet 25 mg PO Q6H PRN (Reason: Nausea) (DME) Dexcom G7 Operation Research Analyst Misc MISCELLANEOUS RenaPlex-D 800 mcg-12.5 mg -2,000 unit tablet 1 tab PO QPM diphenhydramine HCl [Benadryl Allergy] 25 mg Tablet 50 mg PO DAILY PRN (Reason: Allergy Symptoms) insulin lispro [Humalog KwikPen Insulin] 100 unit/mL insulin pen See Rx Instructions .ROUTE .COMPLEX Rx Instructions: Sliding scale subcutaneously twice a day as needed. clopidogrel 75 mg tablet 75 mg PO DAILY cephalexin 500 mg capsule 500 mg PO 1XD 10 Days Qty: 40 0RF Changed isosorbide mononitrate 30 mg tablet extended release 24 hr See Rx Instructions .ROUTE .COMPLEX Qty: 30 1RF Rx Instructions: Take 30 mg daily, do not take on dialysis days Discontinued aspirin 81 mg tablet,delayed release (DR/EC) 81 mg PO QAM ranolazine 500 mg tablet extended release 12 hr 500 mg PO BID Discharge Orders: Discharge Order (Routine); Ordered 10/03/23 Ordered By: Rosi Etienne Referrals: Amalia Mccain FNP [Nurse Practitioner] - 10/21/23 2:30 pm Kp Montanez DO [Primary Care Provider] - Discharge Diet: Diabetic Discharge Activity: Increase activity as tolerated Patient Instructions: Heart Failure (DC), CHF Stoplight, Opioid Safety Discharge Attestations Time Spent in Discharge Care*: greater than 30 min Status at Discharge: Cognitive status at discharge: cognitively intact, Behavioral status at discharge: cooperative and independent in ADL's, Quality Metrics Clinical Quality Measures [ No reported AMI, CVA or VTE this stay] Coding Level of Care Code Acute Code for Chg Fwd Diagnoses Chest pain R07.9 Chest pain type: unspecified Atherosclerotic heart disease of [place] coronary 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 Chronic anticoagulation Z79.01 Mixed hyperlipidemia E78.2 Hyperlipidemia type: mixed hyperlipidemia Peripheral arterial disease I73.9 ESRD (end stage renal disease) N18.6
--- NOTE | 2023-10-03 10:41 | PC.NURSE ---
patient spent approximately one hour in the bathroom this morning and then immediately after getting out of restroom, patient was taken by bed to dialysis
[2023-10-03] MEDS: diphenhydrAMINE 50 mg/mL SDV 1mL 25 MG IVP (11:09)
[2023-10-03] MEDS: heparin, porcine 1,000 unit/mL INJ 10 mL 1000 UNIT IV (13:58)
--- NOTE | 2023-10-03 15:43 | PC.NURSE ---
Patient asked to speak to case management before he left and case management was notified and read the note via Voalte. However, they did not get a chance to meet with him as his ride was here earlier than expected. I asked him if he needed to ask them anything or if I could answer any questions for him and he said no, it had all been taken care of. Patient was wheeled out via wheelchair to a waiting M[facility] ride back to home. Discharge instructions given and understood. Changes to isosorbide also understood.
== END 2023-10-03 15:47 | disposition home or self-care (01) ==
LOC: ER 13:47 → CSU 18:30
PROVIDERS: Family Medicine; Admitting Provider Internal Medicine; Emergency Provider Family Medicine; PCP Internal Medicine; Visit Provider Internal Medicine
DX: I25.118 Atherosclerotic heart disease of native coronary artery with other forms of angina pectoris (principal); Z79.01 Long term (current) use of anticoagulants; E78.2 Mixed hyperlipidemia; I73.9 Peripheral vascular disease, unspecified; E11.22 Type 2 diabetes mellitus with diabetic chronic kidney disease; N18.6 End stage renal disease; N39.0 Urinary tract infection, site not specified; I50.22 Chronic systolic (congestive) heart failure; Z79.82 Long term (current) use of aspirin; Z79.4 Long term (current) use of insulin; Z86.718 Personal history of other venous thrombosis and embolism; E03.9 Hypothyroidism, unspecified; E78.5 Hyperlipidemia, unspecified; F41.1 Generalized anxiety disorder; D63.1 Anemia in chronic kidney disease
CPT/HCPCS: 36415; 36416; 71045; 78452; 80048; 80053; 81001; 82962; 83735; 84484; 85025; 85378; 87040; 87086; 90935; 93005; 93017; 93306; 96365; 96375; 96376; 99285; A9270; A9500; C9113; G0378; J0696; J1200; J1644; J2270; J2785

== ENCOUNTER 2023-10-05 12:38 | Emergency (ER) | payer MEDICARE, MEDICAID, SELFPAY ==
[2023-10-05 12:47] VITALS: BP 143/89; PULSE 74; RESP 18; TEMP 36.8; O2SAT 96
--- NOTE | 2023-10-05 12:53 | ED_ITS ---
HPI - Altered Mental Status 2 General: Chief Complaint: Altered Mental Status Stated Complaint: AMS Time Seen by Provider: 10/05/23 12:49 History of Present Illness: 53-year-old man with a history of end-st age renal disease on dialysis, DVT on Eliquis peripheral vascular disease, diabetes, hypertension who presents by ambulance from the dialysis clinic with report of altered mental status by EMS. However he is awake and alert whenever I examined him and he says he is here for chest pain. He says he is having some left chest pressure that goes into his left arm. No cough. No focal motor deficits. No abdominal pain. No nausea or vomiting. Review of Systems 2 Narrative: Constitutional symptoms: Negative except as documented in HPI. Skin symptoms: Negative except as documented in HPI. Eye symptoms: Negative except as documented in HPI. ENMT symptoms: Negative except as documented in HPI. Respiratory symptoms: Negative except as documented in HPI. Cardiovascular symptoms: Negative except as documented in HPI. Gastrointestinal symptoms: Negative except as documented in HPI. Genitourinary symptoms: Negative except as documented in HPI. Musculoskeletal symptoms: Negative except as documented in HPI. Neurologic symptoms: Negative except as documented in HPI. Psychiatric symptoms: Negative except as documented in HPI. Endocrine symptoms: Negative except as documented in HPI. PFSH ED 2 PFSH: Medical History (Updated 10/05/23 @ 14:28 by Inge Ortiz MD) UTI (urinary tract infection) Peripheral arterial disease PVD (peripheral vascular disease) Worsening angina Elevated troponin 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 mellitus Hypertension Angina at rest Chest pain ESRD (end stage renal disease) Uremic encephalopathy Generalized anxiety disorder ESRD (end stage renal disease) D-dimer, elevated Acute on chronic congestive heart failure History of pulmonary embolism Diabetes Acute kidney injury superimposed on CKD GERD (gastroesophageal reflux disease) Alcohol use disorder, moderate, in sustained remission Major depressive disorder, recurrent severe without psychotic features DVT (deep venous thrombosis) (~03/2020) Proximal left subclavian, basilic and brachial veins, started eliquis this stay, felt present prior to admission Chronic kidney disease -baseline Cr appears to be around 1.5 Chronic systolic heart failure Atherosclerotic heart disease of [place] coronary artery with other forms of angina pectoris hx of CAD with prior stenting of proximal LAD, LCx, RCA Ischemic cardiomyopathy Onychodystrophy Chronic anticoagulation Eliquis Osteoarthritis of spine Hypothyroidism Hypertension Hyperlipidemia Diabetes Depression Anemia Foot drop, left H/O acute myocardial infarction H/O deep venous thrombosis developed compartment syndrome Surgical History (Updated 10/04/23 @ 00:01 by IHSAN Johnson) Peritoneal dialysis catheter in situ (06/15/21) History of appendectomy 1995 History of excision of mass 06/08/2019: Subcutaneous mass on back History of removal of Port-a-Cath Port-A-Cath in place H/O vasectomy Hx of cholecystectomy History of coronary artery stent placement 5x H/O skin graft History of inguinal hernia repair, bilateral 2000 H/O removal of testicle left H/O colonoscopy (11/14/20) 08/2015 H/O esophagogastroduodenoscopy (11/14/20) 08/2015 Family History Grandfather Cancer skin cancer Parkinson disease Brother Hypertension Father Heart disease Mother Hypertension Stroke Aneurysm Grandmother Aneurysm Other Crohn's disease Denies family history of Anesthesia complication Bleeding disorder Social History Smoking and tobacco/nicotine status: never used tobacco/nicotine Second hand smoke exposure: No Alcohol intake: former Year of sobriety/quit date alcohol: 2015 Former alcohol use details: Only holidays Substance/Drug Use: never Lives independently: Yes Household members: significant other Marital status: Single Current occupational status: disabled Physical Exam 2 Narrative: General: Alert, no acute distress. Skin: Warm, dry. Head: Normocephalic, atraumatic. Neck: Supple, trachea midline. Eye: Extraocular movements are intact. Ears, nose, mouth and throat: mucosa moist. Cardiovascular: Regular, Normal peripheral perfusion. Respiratory: Lungs are clear to auscultation, respirations are non-labored, breath sounds are equal, Symmetrical chest wall expansion. Gastrointestinal: Soft, Nontender, Non distended, Normal bowel sounds. Musculoskeletal: Normal ROM, no deformity. Neurological: Alert and oriented, No focal neurological deficit observed. Psychiatric: Cooperative, appropriate mood & affect. Course 2 Vital Signs: Vital signs: Vital Signs Temperature 98.2 F 10/05/23 12:47 Pulse Rate 74 10/05/23 12:47 Respiratory Rate 18 10/05/23 12:47 Blood Pressure 143/89 10/05/23 12:47 Pulse Oximetry 96 10/05/23 12:47 Oxygen Delivery Me thod Nasal Cannula 10/05/23 12:47 Oxygen Flow Rate 2 10/05/23 12:47 MDM - Altered Mental Status Medical Decision Making Differential diagnosis for patient with chest pain includes but is not limited to and based on the above HPI, review of systems and physical exam: Pneumonia. unstable angina. angina. Acute coronary syndrome / [place]. Pulmonary embolism. Costochondritis / musculoskeletal. Pleurisy. Pericarditis. Esophageal spasm. Pancreatis. Cholecystitis. Workup: Lab work, chest X-ray and EKG ordered to evaluate, rule in and rule out above pathologies. EKG: Time 1306 rate 73. Normal sinus rhythm, No ST-T changes, no ectopy, first degree AV Block, EP Interpretation. This was reviewed and interpreted by myself the ER physician at 1309 Chest x-ray: No acute process. Sternotomy wires. Stable left atelectasis and right small pleural effusion. No infiltrate. No pneumothorax. No cardiomegaly. This was reviewed and interpreted by myself the ER physician. Lab Review: Laboratory results were reviewed and interpreted by myself the emergency room physician. Lab work is unremarkable. Troponin is at his baseline. BUN and creatinine are appropriate for postdialysis. I reviewed the patient's medical record. Assessment and plan: Noncardiac chest pain - Discharged home - Discussed plan with patient. Answered any questions. - Evaluation and treatment of this problem were appropriate in the emergency setting. Lab Data 10/05/23 13:13 10/05/23 13:13 Radiology Impressions Chest X-Ray 10/05/23 12:53 IMPRESSION: 1. Stable chest 2. Stable left basilar atelectasis and small right pleural effusion Laboratory Results WBC 6.82 10^3/uL (3.29-11.43) 10/05/23 13:13 RBC 3.38 10^6/uL (3.85-5.65) L 10/05/23 13:13 Hgb 11.50 g/dL (11.27-16.99) 10/05/23 13:13 Hct 33.9 % (37-53) L 10/05/23 13:13 MCV 100.3 fl (82-101) 10/05/23 13:13 MCH 34.0 pg (27-33) H 10/05/23 13:13 MCHC 33.9 g/dL (30-55) 10/05/23 13:13 RDW 14.1 % (12.1-15.1) 10/05/23 13:13 Plt Count 250 10^3/cmm (157-399) 10/05/23 13:13 MPV 9.2 fL (7.4-10.4) 10/05/23 13:13 Neut % (Auto) 62.9 % 10/05/23 13:13 Lymph % (Auto) 23.2 % 10/05/23 13:13 [place] % (Auto) 9.4 % 10/05/23 13:13 Eos % (Auto) 3.5 % 10/05/23 13:13 Baso % (Auto) 0.7 % 10/05/23 13:13 Neut # (Auto) 4.29 10^3/uL (1.8-7.7) 10/05/23 13:13 Lymph # (Auto) 1.6 10^3/uL (0.8-4.8) 10/05/23 13:13 [place] # (Auto) 0.6 10^3/uL (0.2-0.9) 10/05/23 13:13 Eos # (Auto) 0.2 10^3/uL (0.0-0.8) 10/05/23 13:13 Baso # (Auto) 0.1 10^3/uL (0.0-0.1) 10/05/23 13:13 Nucleated RBC % (auto) 0 % 10/05/23 13:13 Nucleated RBCs # 0.0 /100WBC 10/05/23 13:13 Sodium 138 mmol/L (136-145) 10/05/23 13:13 Potassium 3.5 mmol/L (3.5-5.1) 10/05/23 13:13 Chloride 94 mmol/L (98-107) L 10/05/23 13:13 Carbon Dioxide 33 mmol/L (22-29) H 10/05/23 13:13 Anion Gap 14.5 (5-19) 10/05/23 13:13 BUN 10 mg/dL (6-20) 10/05/23 13:13 Creatinine 2.1 mg/dL (0.7-1.2) H 10/05/23 13:13 GFR Calculation 33.0 mL/min (90-130) L 10/05/23 13:13 Glucose 102 mg/dL (65-115) 10/05/23 13:13 Calculated Osmolality 285 mOsm/kg (285-295) 10/05/23 13:13 Calcium 8.8 mg/dL (8.5-10.5) 10/05/23 13:13 Troponin T Baseline 66 ng/L (0-15) H 10/05/23 13:13 All radiology interpretation(s) finalized by discharge Discharge Plan Discharge Patient Disposition: Home Clinical Impression: Chest pain, non-cardiac Condition: Stable Prescriptions: No Action Eliquis 2.5 mg tablet 2.5 mg PO BID sevelamer carbonate 800 mg tablet 800 mg PO TID PRN (Reason: UNKNOWN) (DME) Dexenymotion G7 Sensor Device See Rx Instructions .ROUTE .COMPLEX Qty: 9 1RF Dose Instruction: CHANGE every 10 DAYS Rx Instructions: CHANGE every 10 DAYS mupirocin 2 % ointment 1 applic topical TID Qty: 15 0RF Rx Instructions: Apply to wound three times daily and as needed with dressing changes, cover with band-aid. bupropion HCl 300 mg tablet extended release 24 hr 300 mg PO QAM Qty: 30 2RF buspirone 10 mg tablet 10 mg PO BID Qty: 60 2RF fluoxetine 40 mg capsule 40 mg PO DAILY Qty: 30 2RF trazodone 100 mg tablet 400 mg PO BEDTIME Qty: 120 2RF (DME) Diabetic Shoes with Custom insoles See Rx Instructions .Route .MEDSUPPLY Qty: 1 0RF Rx Instructions: As directed (DME) AFO to left See Rx Instructions .Route .MEDSUPPLY Qty: 1 0RF Rx Instructions: As directed by [facility] atorvastatin 40 mg tablet 40 mg PO QAM Qty: 90 2RF nitroglycerin [Nitrostat] 0.4 mg tablet, sublingual 0.4 mg SUBLINGUAL Q5M PRN (Reason: Chest Pain) Qty: 25 2RF Rx Instructions: do not exceed 3 doses per episode Mounjaro 15 mg/0.5 mL pen injector 15 mg SUBCUT Q7D Qty: 2 2RF levothyroxine 88 mcg tablet 88 mcg PO QAM Tresiba FlexTouch U-200 200 unit/mL (3 mL) insulin pen 40 unit SUBCUT QAM gabapentin 100 mg capsule 100 mg PO BID meclizine 12.5 mg tablet 12.5 mg PO BID PRN (Reason: dizziness) Qty: 14 0RF carvedilol 6.25 mg tablet 6.25 mg PO BID Procto-Med HC 2.5 % cream with perineal applicator See Rx Instructions .ROUTE .COMPLEX Rx Instructions: APPLY THIN LAYER TO AFFECTED AREA TWO TO FOUR TIMES A DAY. isosorbide mononitrate 30 mg tablet extended release 24 hr See Rx Instructions .ROUTE .COMPLEX Qty: 30 1RF Rx Instructions: Take 30 mg daily, do not take on dialysis days bumetanide 2 mg tablet See Rx Instructions .ROUTE .COMPLEX Rx Instructions: 2mg (1 tab)po qam and 4mg (2 tabs)in the evening tizanidine 2 mg Tablet 2 mg PO BID PRN (Reason: Muscle Spasm) promethazine 25 mg tablet 25 mg PO Q6H PRN (Reason: Nausea) (DME) Dexcom G7 Supervisor Engine Assembly Misc MISCELLANEOUS RenaPlex-D 800 mcg-12.5 mg -2,000 unit tablet 1 tab PO QPM diphenhydramine HCl [Benadryl Allergy] 25 mg Tablet 50 mg PO DAILY PRN (Reason: Allergy Symptoms) insulin lispro [Humalog KwikPen Insulin] 100 unit/mL insulin pen See Rx Instructions .ROUTE .COMPLEX Rx Instructions: Sliding scale subcutaneously twice a day as needed. clopidogrel 75 mg tablet 75 mg PO DAILY cephalexin 500 mg capsule 500 mg PO 1XD 10 Days Qty: 40 0RF Discharge Orders: Discharge ED (Routine); Ordered 10/05/23 Ordered By: Inge Ortiz Referrals: Kp Montanez DO [Primary Care Provider] - Discharge Diet: Usual diet Discharge Activity: Increase activity as tolerated Patient Instructions: Noncardiac Chest Pain (ED) Activity Restrictions/Additional Instructions: Thank you for choosing [facility] for your healthcare needs today. Please realize this is an emergency room and that we are providing you with a medical screening exam and this may not be complete and all inclusive of all the testing and or work up that you may need to determine your ailment or severity of your illness. You have been screened and evaluated and felt safe for discharge. Health conditions do change or evolve sometimes and as such it is important that you follow up with your Primary Doctor to be re checked, 3-5 days is a general good time frame for follow up. You are always welcome to return to the ED for re assessment if your symptoms are worsening or you have new concerns Coding Level of Care Code ED Cigarette Lighter Repairer for Aaron Irene
--- NOTE | 2023-10-05 12:53 | XRR_ITS ---
PROCEDURE INFORMATION: Exam: XR Chest Exam date and time: 10/05/2023 1:13 PM Age: 53 years old Clinical indication: Pain; Chest pressure; Additional info: Chest pain TECHNIQUE: Imaging protocol: Radiologic exam of the chest. Views: 1 view. COMPARISON: CR XR chest 1V portable [id number] 10/01/2023 2:41 PM FINDINGS: Tubes, catheters and devices: A left-sided VAD is in good position with the catheter tip in the lower SVC. Lungs: Platelike atelectasis is noted in the left lung base. Pleural spaces: A small right-sided pleural effusion is noted. Heart/Mediastinum: Unremarkable. No cardiomegaly. Bones/joints: Sternal sutures are noted. XR/XR chest 1V portable [id number] IMPRESSION: 1. Stable chest 2. Stable left basilar atelectasis and small right pleural effusion
--- NOTE | 2023-10-05 12:53 | ECG_ITS ---
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 Measurements Intervals [place] Rate: 73 P: 28 MD: 215 QRS: 74 QRSD: 110 T: 16 QT: 415 QTc: 460 Interpretive Statements SINUS RHYTHM WITH FIRST DEGREE AV BLOCK POSSIBLE ANTERIOR MYOCARDIAL INFARCTION , PROBABLY OLD [30 ms Q WAVE IN V3/V4, OR R < 0.2 mV IN V4] Compared to ECG 10/02/2023 02:33:03 First degree AV block now present Myocardial infarct finding still present Electronically Signed On 10-05-2023 13:10:01 CDT by Karen Choi M.D. [id number]
[2023-10-05 13:47] LABS: Basophils # 0.1 10^3/uL (0.0-0.1); Basophils % 0.7 %; Eosinophils # 0.2 10^3/uL (0.0-0.8); Eosinophils % 3.5 %; Hematocrit 33.9 % (37-53); Lymphocytes # 1.6 10^3/uL (0.8-4.8); Lymphocytes % 23.2 %; Mean Corpuscular HGB Conc 33.9 g/dL (30-55); Mean Corpuscular Volume 100.3 fl (82-101); Mean Platelet Volume 9.2 fL (7.4-10.4); Monocytes # 0.6 10^3/uL (0.2-0.9); Monocytes % 9.4 %; Neutrophils # 4.29 10^3/uL (1.8-7.7); Neutrophils % 62.9 %; Nucleated Red Blood Cells % 0 %; Platelet Count 250 10^3/cmm (157-399); Red Blood Count 3.38 10^6/uL (3.85-5.65); Red Cell Distribution Width 14.1 % (12.1-15.1); White Blood Count 6.82 10^3/uL (3.29-11.43)
[2023-10-05 14:13] LABS: Blood Urea Nitrogen 10 mg/dL (6-20); Calcium 8.8 mg/dL (8.5-10.5); Carbon Dioxide 33 mmol/L (22-29); Chloride 94 mmol/L (98-107); Glucose 102 mg/dL (65-115); Osmolality Calculated 285 mOsm/kg (285-295); Sodium 138 mmol/L (136-145)
[2023-10-05 14:14] LABS: Creatinine Clr Calc Pharmacy 45.8975
[2023-10-05 14:15] LABS: Anion Gap 14.5 (5-19); Potassium 3.5 mmol/L (3.5-5.1)
[2023-10-05 14:23] LABS: Troponin(5th) Baseline 66 ng/L (0-15)
--- NOTE | 2023-10-05 15:06 | ECG_ITS ---
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 Measurements Intervals [place] Rate: 72 P: 24 AR: 212 QRS: 71 QRSD: 116 T: 8 QT: 428 QTc: 469 Interpretive Statements SINUS RHYTHM WITH FIRST DEGREE AV BLOCK POSSIBLE ANTERIOR MYOCARDIAL INFARCTION , PROBABLY OLD [30 ms Q WAVE IN V3/V4, OR R < 0.2 mV IN V4] Compared to ECG 10/05/2023 13:06:57 No significant changes Electronically Signed On 10-06-2023 13:49:17 CDT by Jeevan Lazaro M.D. [id number]
== END 2023-10-05 16:08 | disposition home or self-care (01) ==
PROVIDERS: Emergency Provider Emergency Medicine; PCP Internal Medicine
DX: R07.9 Chest pain, unspecified (principal)
CPT/HCPCS: 36415; 71045; 80048; 84484; 85025; 93005; 99285

== ENCOUNTER 2023-10-21 09:31 | Oncology outpatient (recurring) (ONCR) | payer MEDICARE, SELFPAY | END 2023-11-17 23:59 | disposition home or self-care (01) | PROVIDERS: PCP Internal Medicine; Visit Provider Internal Medicine | DX: R07.9 Chest pain, unspecified; Z45.2 Encounter for adjustment and management of vascular access device | CPT/HCPCS: 93005; 96523; 99213 ==

== ENCOUNTER 2023-10-24 10:55 | Emergency (ER) | payer MEDICARE, SELFPAY ==
[2023-10-24 10:57] VITALS: BP 125/63; PULSE 83; TEMP 37.1; O2SAT 95; BMI 39.7
--- NOTE | 2023-10-24 10:59 | XRR_ITS ---
PROCEDURE INFORMATION: Exam: XR Chest Exam date and time: 10/24/2023 11:21 AM Age: 53 years old Clinical indication: Pain; Angina pectoris; Additional info: Cp TECHNIQUE: Imaging protocol: Radiologic exam of the chest. Views: 1 view. COMPARISON: CR (CHEST, ) 10/05/2023 1:13 PM FINDINGS: Tubes, catheters and devices: Left chest wall port is in satisfactory location with tip overlying the superior vena cava. Lungs: Low lung volumes with bronchovascular crowding. No focal consolidation. Bibasilar atelectasis. Pleural spaces: No sizable pleural effusion or pneumothorax. Heart/Mediastinum: No cardiomegaly. Bones/joints: Status post median sternotomy. XR/XR chest 1V portable [id number] IMPRESSION: No acute intrathoracic findings.
--- NOTE | 2023-10-24 11:00 | ECG_ITS ---
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 Measurements Intervals [place] Rate: 83 P: 46 [place]: 175 QRS: 47 QRSD: 106 T: 57 QT: 403 QTc: 475 Interpretive Statements SINUS RHYTHM POSSIBLE ANTERIOR MYOCARDIAL INFARCTION , PROBABLY OLD [30 ms Q WAVE IN V3/V4, OR R < 0.2 mV IN V4] Compared to ECG 10/21/2023 14:59:30 No significant changes Electronically Signed On 10-24-2023 12:21:03 CDT by Garrison Mckinney M.D. [id number] f
--- NOTE | 2023-10-24 11:00 | ED_ITS ---
HPI - Chest Pain 2 General: Chief Complaint: Chest Pain Stated Complaint: cp Time Seen by Provider: 10/24/23 10:56 Source: patient and EMS Mode of arrival: EMS Limitations: no limitations History of Present Illness: 53-year-old male very well-known to the ER has history of end-stage renal disease he is a dialysis today is having some chest pain during dialysis. States it was [facility] his chest states pain is now resolved denies any shortness of breath he did receive his dialysis. Denies any vomiting or diarrhea Associated symptoms: Deny abdominal pain, dyspnea, fever(s), nausea or vomiting Review of Systems 2 Const: Denies: fever(s), chills, body aches or change in appetite ENMT: Denies: throat pain or dental pain Card: Reports: chest pain Resp: Denies: dyspnea GI: Denies: abdominal pain, nausea, vomiting or diarrhea Musc: Denies: neck pain or back pain Skin/Breast: Denies: rash Neuro: Denies: headache(s) PFSH ED 2 PFSH: Medical History UTI (urinary tract infection) Peripheral arterial disease PVD (peripheral vascular disease) Worsening angina Elevated troponin 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 mellitus Hypertension Angina at rest Chest pain ESRD (end stage renal disease) Uremic encephalopathy Generalized anxiety disorder ESRD (end stage renal disease) D-dimer, elevated Acute on chronic congestive heart failure History of pulmonary embolism Diabetes Acute kidney injury superimposed on CKD GERD (gastroesophageal reflux disease) Alcohol use disorder, moderate, in sustained remission Major depressive disorder, recurrent severe without psychotic features DVT (deep venous thrombosis) (~03/2020) Proximal left subclavian, basilic and brachial veins, started eliquis this stay, felt present prior to admission Chronic kidney disease -baseline Cr appears to be around 1.5 Chronic systolic heart failure Atherosclerotic heart disease of [place] coronary artery with other forms of angina pectoris hx of CAD with prior stenting of proximal LAD, LCx, RCA Ischemic cardiomyopathy Onychodystrophy Chronic anticoagulation Eliquis Osteoarthritis of spine Hypothyroidism Hypertension Hyperlipidemia Diabetes Depression Anemia Foot drop, left H/O acute myocardial infarction H/O deep venous thrombosis developed compartment syndrome Surgical History Peritoneal dialysis catheter in situ (06/15/21) History of appendectomy 1995 History of excision of mass 06/08/2019: Subcutaneous mass on back History of removal of Port-a-Cath Port-A-Cath in place H/O vasectomy Hx of cholecystectomy History of coronary artery stent placement 5x H/O skin graft History of inguinal hernia repair, bilateral 2000 H/O removal of testicle left H/O colonoscopy (11/14/20) 08/2015 H/O esophagogastroduodenoscopy (11/14/20) 08/2015 Family History Grandfather Cancer skin cancer Parkinson disease Brother Hypertension Father Heart disease Mother Hypertension Stroke Aneurysm Grandmother Aneurysm Other Crohn's disease Denies family history of Anesthesia complication Bleeding disorder Social History Smoking and tobacco/nicotine status: never used tobacco/nicotine Second hand smoke exposure: No Alcohol intake: former Year of sobriety/quit date alcohol: 2015 Former alcohol use details: Only holidays Substance/Drug Use: never Lives independently: Yes Household members: significant other Marital status: Single Current occupational status: disabled Physical Exam 2 Const: COMMON NORMALS: no acute distress, patient oriented x3 and healthy appearing HENMT: COMMON NORMALS: normocephalic and atraumatic HEAD & SCALP: n ormocephalic and atraumatic Neck/C-Spine: COMMON NORMALS: full ROM and supple Chest: COMMONS NORMALS: normal inspection of the chest and normal palpation of entire chest wall Resp: COMMON NORMALS: normal respiratory effort, No retractions, No use of accessory muscles and clear to auscultation bilaterally AUSCULTATION: clear to auscultation bilaterally Cardio: COMMON NORMALS: regular rate, regular rhythm and No murmurs present (Cardio) RATE: regular rate RHYTHM: regular rhythm GI: COMMON NORMALS: Normal to inspection, nondistended, normoactive bowel sounds present, Soft to palpation, non-tender and no masses PALPATION: Yes Soft to palpation Extremity: COMMON NORMALS: normal to inspection and full ROM Neuro: COMMON NORMALS: patient oriented x3, moves all extremities and no focal motor deficits Psych: COMMON NORMALS: mental status grossly normal, Normal thought process present and cooperative THOUGHT PROCESS: Normal thought process present Skin: COMMON NORMALS: no rashes or lesions noted and no wounds GENERAL SKIN EXAM: no rashes or lesions noted Course 2 Vital Signs: Vital signs: Vital Signs Temperature 98.7 F 10/24/23 10:57 Pulse Rate 83 10/24/23 10:57 Blood Pressure 125/63 10/24/23 10:57 Pulse Oximetry 95 10/24/23 10:57 Oxygen Delivery Me thod Room Air 10/24/23 10:57 MDM - Chest Pain Medical Decision Making Patient presents for chest pain his troponins at his baseline 2-hour Trope was less than a delta of 10 he has been pain-free here no signs of ACS he stable for discharge follow-up with PCP return if worsening Medical Records I reviewed the patient's medical records. Lab Data I reviewed the patient's lab results. 10/24/23 11:10 10/24/23 11:10 Radiology Impressions Chest X-Ray 10/24/23 10:59 IMPRESSION: No acute intrathoracic findings. Laboratory Results WBC 9.40 10^3/uL (3.29-11.43) 10/24/23 11:10 RBC 3.14 10^6/uL (3.85-5.65) L 10/24/23 11:10 Hgb 10.90 g/dL (11.27-16.99) L 10/24/23 11:10 Hct 31.5 % (37-53) L 10/24/23 11:10 MCV 100.3 fl (82-101) 10/24/23 11:10 MCH 34.7 pg (27-33) H 10/24/23 11:10 MCHC 34.6 g/dL (30-55) 10/24/23 11:10 RDW 14.1 % (12.1-15.1) 10/24/23 11:10 Plt Count 255 10^3/cmm (157-399) 10/24/23 11:10 MPV 9.3 fL (7.4-10.4) 10/24/23 11:10 Neut % (Auto) 70.3 % 10/24/23 11:10 Lymph % (Auto) 19.5 % 10/24/23 11:10 [place] % (Auto) 8.6 % 10/24/23 11:10 Eos % (Auto) 0.5 % 10/24/23 11:10 Baso % (Auto) 0.6 % 10/24/23 11:10 Neut # (Auto) 6.60 10^3/uL (1.8-7.7) 10/24/23 11:10 Lymph # (Auto) 1.8 10^3/uL (0.8-4.8) 10/24/23 11:10 [place] # (Auto) 0.8 10^3/uL (0.2-0.9) 10/24/23 11:10 Eos # (Auto) 0.1 10^3/uL (0.0-0.8) 10/24/23 11:10 Baso # (Auto) 0.1 10^3/uL (0.0-0.1) 10/24/23 11:10 Nucleated RBC % (auto) 0 % 10/24/23 11:10 Nucleated RBCs # 0.0 /100WBC 10/24/23 11:10 PT 13.40 SECONDS (12.1-14.9) 10/24/23 11:10 INR 1.00 (0.8-1.2) 10/24/23 11:10 Sodium 140 mmol/L (136-145) 10/24/23 11:10 Potassium 3.3 mmol/L (3.5-5.1) L 10/24/23 11:10 Chloride 99 mmol/L (98-107) 10/24/23 11:10 Carbon Dioxide 29 mmol/L (22-29) 10/24/23 11:10 Anion Gap 15.3 (5-19) 10/24/23 11:10 BUN 12 mg/dL (6-20) 10/24/23 11:10 Creatinine 1.5 mg/dL (0.7-1.2) H 10/24/23 11:10 GFR Calculation 48.6 mL/min (90-130) L 10/24/23 11:10 Glucose 109 mg/dL (65-115) 10/24/23 11:10 Calculated Osmolality 290 mOsm/kg (285-295) 10/24/23 11:10 Calcium 8.5 mg/dL (8.5-10.5) 10/24/23 11:10 Total Bilirubin 0.5 mg/dL (0.15-1.2) 10/24/23 11:10 AST 12 U/L (0-40) 10/24/23 11:10 ALT 8 U/L (0-41) 10/24/23 11:10 Alkaline Phosphatase 74 U/L (40-130) 10/24/23 11:10 Troponin T Baseline 73 ng/L (0-15) H 10/24/23 11:10 Troponin T 120 Minute 72.82 ng/L (0-15) H 10/24/23 13:10 Delta Troponin T -0.18 ABS# (0-10) L 10/24/23 13:10 Total Protein 5.8 g/dL (6.6-8.7) L 10/24/23 11:10 Albumin 3.7 g/dL (3.5-5.2) 10/24/23 11:10 Globulin 2.1 g/dL (1.3-4.6) 10/24/23 11:10 All radiology interpretation(s) finalized by discharge EKG Data EKG 1: I personally reviewed and interpreted this EKG as follows: EKG interpretation date: 10/24/23 EKG interpretation time: 11:00 Interpretation: nsr hr [address] or t wave abnormalities qrs 106 qtc 443 EKG 2: I personally reviewed and interpreted this EKG as follows: EKG interpretation date: 10/24/23 EKG interpretation time: 13:10 Interpretation: nsr hr [address] or t wave abnormalities qrs 110 qtc 438 Discharge Plan Discharge Patient Disposition: Home Clinical Impression: Chest pain Condition: Stable Prescriptions: No Action Eliquis 2.5 mg tablet 2.5 mg PO BID sevelamer carbonate 800 mg tablet 800 mg PO TID PRN (Reason: UNKNOWN) (DME) DexInvisibleCRM G7 Sensor Device See Rx Instructions .ROUTE .COMPLEX Qty: 9 1RF Dose Instruction: CHANGE every 10 DAYS Rx Instructions: CHANGE every 10 DAYS (DME) Diabetic Shoes with Custom insoles See Rx Instructions .Route .MEDSUPPLY Qty: 1 0RF Rx Instructions: As directed (DME) AFO to left See Rx Instructions .Route .MEDSUPPLY Qty: 1 0RF Rx Instructions: As directed by [facility] bupropion HCl 300 mg tablet extended release 24 hr 300 mg PO QAM Qty: 30 2RF buspirone 10 mg tablet 10 mg PO BID Qty: 60 2RF atorvastatin 40 mg tablet 40 mg PO QAM Qty: 90 2RF nitroglycerin [Nitrostat] 0.4 mg tablet, sublingual 0.4 mg SUBLINGUAL Q5M PRN (Reason: Chest Pain) Qty: 25 2RF Rx Instructions: do not exceed 3 doses per episode Mounjaro 15 mg/0.5 mL pen injector 15 mg SUBCUT Q7D Qty: 2 2RF levothyroxine 88 mcg tablet 88 mcg PO QAM Tresiba FlexTouch U-200 200 unit/mL (3 mL) insulin pen 40 unit SUBCUT QAM gabapentin 100 mg capsule 100 mg PO BID meclizine 12.5 mg tablet 12.5 mg PO BID PRN (Reason: dizziness) Qty: 14 0RF carvedilol 6.25 mg tablet 6.25 mg PO BID hydrocortisone [Procto-Med HC] 2.5 % cream with perineal applicator See Rx Instructions .ROUTE .COMPLEX Rx Instructions: APPLY THIN LAYER TO AFFECTED AREA TWO TO FOUR TIMES A DAY. isosorbide mononitrate 30 mg tablet extended release 24 hr See Rx Instructions .ROUTE .COMPLEX Qty: 30 1RF Rx Instructions: Take 30 mg daily, do not take on dialysis days lorazepam 1 mg Tablet 1 mg PO Q8H duloxetine 30 mg capsule,delayed release(DR/EC) 30 mg PO DAILY Aspir-81 81 mg Tablet,Delayed Release (Dr/Ec) 81 mg PO DAILY ranolazine 500 mg tablet extended release 12 hr 500 mg PO BID fluoxetine 40 mg capsule 40 mg PO QAM trazodone 100 mg tablet 400 mg PO BEDTIME PRN (Reason: insomnia) mupirocin 2 % ointment See Rx Instructions .ROUTE .COMPLEX Rx Instructions: Apply to wound three times daily and as needed with dressing changes, cover with band-aid. 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 clopidogrel 75 mg tablet 75 mg PO DAILY Discharge Orders: Discharge ED (Routine); Ordered 10/24/23 Ordered By: Moses Gauthier Referrals: Kp Montanez DO [Primary Care Provider] - Discharge Diet: Advance as tolerated Discharge Activity: Resume usual activity Patient Instructions: Chest Pain (ED) Coding Level of Care Code ED Security Tester for Aaron Irene
--- NOTE | 2023-10-24 11:22 | PC.PHAR ---
JANELLE SENT CURRENT MED LIST FOR COMPLETION OF MED REC.
[2023-10-24] MEDS: morphine 4 mg/mL SDV 1 mL IVP (11:26)
[2023-10-24 11:38] LABS: Basophils # 0.1 10^3/uL (0.0-0.1); Basophils % 0.6 %; Eosinophils # 0.1 10^3/uL (0.0-0.8); Eosinophils % 0.5 %; Hematocrit 31.5 % (37-53); Lymphocytes # 1.8 10^3/uL (0.8-4.8); Lymphocytes % 19.5 %; Mean Corpuscular HGB Conc 34.6 g/dL (30-55); Mean Corpuscular Hemoglobin 34.7 pg (27-33); Mean Corpuscular Volume 100.3 fl (82-101); Mean Platelet Volume 9.3 fL (7.4-10.4); Monocytes # 0.8 10^3/uL (0.2-0.9); Monocytes % 8.6 %; Neutrophils % 70.3 %; Nucleated Red Blood Cells % 0 %; Platelet Count 255 10^3/cmm (157-399); Red Blood Count 3.14 10^6/uL (3.85-5.65); Red Cell Distribution Width 14.1 % (12.1-15.1)
[2023-10-24 11:54] LABS: Troponin(5th) Baseline 73 ng/L (0-15)
[2023-10-24 11:58] LABS: Alanine Aminotransferase 8 U/L (0-41); Albumin Level 3.7 g/dL (3.5-5.2); Alkaline Phosphatase 74 U/L (40-130); Anion Gap 15.3 (5-19); Aspartate Amino Transferase 12 U/L (0-40); Blood Urea Nitrogen 12 mg/dL (6-20); Calcium 8.5 mg/dL (8.5-10.5); Carbon Dioxide 29 mmol/L (22-29); Chloride 99 mmol/L (98-107); Creatinine Clr Calc Pharmacy 63.1704; Globulin 2.1 g/dL (1.3-4.6); Glomerular Filtration Rate 48.6 mL/min (90-130); Glucose 109 mg/dL (65-115); Osmolality Calculated 290 mOsm/kg (285-295); Potassium 3.3 mmol/L (3.5-5.1); Sodium 140 mmol/L (136-145); Total Bilirubin 0.5 mg/dL (0.15-1.2); Total Protein 5.8 g/dL (6.6-8.7)
--- NOTE | 2023-10-24 12:59 | ECG_ITS ---
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 Measurements Intervals [place] Rate: 73 P: 52 [place]: 180 QRS: 21 QRSD: 110 T: 42 QT: 412 QTc: 456 Interpretive Statements SINUS RHYTHM POSSIBLE ANTERIOR MYOCARDIAL INFARCTION , PROBABLY OLD [30 ms Q WAVE IN V3/V4, OR R < 0.2 mV IN V4] Compared to ECG 10/24/2023 11:00:29 No significant changes Electronically Signed On 10-24-2023 16:15:01 CDT by Garrison Mckinney M.D. [id number]
[2023-10-24 13:30] LABS: Troponin 5 2HR 72.82 ng/L (0-15)
[2023-10-24 13:31] LABS: Troponin 5 2HR Delta -0.18 ABS# (0-10)
[2023-10-24 13:45] VITALS: BP 109/64; PULSE 81; RESP 18; O2SAT 93
[2023-10-24 14:05] VITALS: BP 109/64; PULSE 81; RESP 18; TEMP 37.1; O2SAT 93
== END 2023-10-24 14:00 | disposition home or self-care (01) ==
PROVIDERS: Emergency Provider Emergency Medicine; PCP Internal Medicine
DX: R07.9 Chest pain, unspecified (principal); Z79.01 Long term (current) use of anticoagulants; Z79.85 Long-term (current) use of injectable non-insulin antidiabetic drugs; Z79.02 Long term (current) use of antithrombotics/antiplatelets; Z79.82 Long term (current) use of aspirin; Z79.4 Long term (current) use of insulin; E11.22 Type 2 diabetes mellitus with diabetic chronic kidney disease; I13.2 Hypertensive heart and chronic kidney disease with heart failure and with stage 5 chronic kidney disease, or end stage renal disease; I50.9 Heart failure, unspecified; N18.6 End stage renal disease; Z99.2 Dependence on renal dialysis; I25.10 Atherosclerotic heart disease of native coronary artery without angina pectoris; I25.5 Ischemic cardiomyopathy; E78.5 Hyperlipidemia, unspecified; I25.2 Old myocardial infarction
CPT/HCPCS: 36415; 71045; 80053; 84484; 85025; 85610; 93005; 96374; 96375; 99285; J1642; J2270

== ENCOUNTER 2023-10-28 14:01 | Observation (INO) | payer MEDICARE, SELFPAY ==
[2023-10-28] VITALS (11 sets, daily range): BP systolic 100–166; BP diastolic 60–89; PULSE 80–91; RESP 16–20; TEMP 36.8–37; O2SAT 91–95; BMI 39.6
--- NOTE | 2023-10-28 14:43 | XRR_ITS ---
PROCEDURE INFORMATION: Exam: XR Chest Exam date and time: 10/28/2023 2:57 PM Age: 53 years old Clinical indication: Pain; Angina pectoris; Additional info: Chest pain TECHNIQUE: Imaging protocol: Radiologic exam of the chest. Views: 1 view. COMPARISON: CR XR chest 1V portable [id number] 10/24/2023 11:21 AM FINDINGS: Tubes, catheters and devices: A left-sided VAD is in good position with the catheter tip in the lower SVC. Lungs: Unremarkable. No consolidation or mass. Pleural spaces: Unremarkable. No pleural effusion. No pneumothorax. Heart/Mediastinum: Unremarkable. No cardiomegaly. Bones/joints: Sternal sutures are noted. XR/XR chest 1V portable [id number] IMPRESSION: No acute findings.
--- NOTE | 2023-10-28 14:43 | ECG_ITS ---
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 Measurements Intervals [place] Rate: 89 P: 11 AR: 172 QRS: -7 QRSD: 105 T: 53 QT: 390 QTc: 476 Interpretive Statements SINUS RHYTHM POSSIBLE LEFT ATRIAL ENLARGEMENT [-0.1mV P-WAVE IN V1/V2] POSSIBLE ANTERIOR MYOCARDIAL INFARCTION , OF INDETERMINATE AGE [30 ms Q WAVE IN V3/V4, OR R < 0.2 mV IN V4] Compared to ECG 10/24/2023 13:10:31 No significant changes Electronically Signed On 10-28-2023 19:03:38 CDT by Karen Choi M.D. [id number]
--- NOTE | 2023-10-28 15:37 | ED_ITS ---
Documented by User: Timo Mckoy DO 10/29/23 06:56 HPI - Chest Pain 2 General: Chief Complaint: Chest Pain Stated Complaint: cp Time Seen by Provider: 10/28/23 14:02 Source: patient Mode of arrival: EMS History of Present Illness: 53-year-old male with known history of c oronary disease end-stage renal disease presents to the emergency room with complaints of chest pain radiating to his back and arms particularly into his left arm as well as into the neck and jaw. In April 2023 patient had a stent placed for a lesion that had restenosis. About 2 weeks after that stent was placed he had another angiogram that was normal. MD complaint: chest pain Associated symptoms: Deny abdominal pain, dyspnea or fever(s) Review of Systems 2 Const: Denies: fever(s) or chills Card: Denies: chest pain Resp: Denies: dyspnea GI: Denies: abdominal pain : Denies: dysuria, urinary frequency or urinary urgency Musc: Denies: neck pain or back pain Skin/Breast: Denies: rash PFSH ED 2 PFSH: Medical History Chronic systolic heart failure UTI (urinary tract infection) Peripheral arterial disease PVD (peripheral vascular disease) Worsening angina Elevated troponin 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 mellitus Hypertension Angina at rest Chest pain ESRD (end stage renal disease) Uremic encephalopathy Generalized anxiety disorder ESRD (end stage renal disease) D-dimer, elevated Acute on chronic congestive heart failure History of pulmonary embolism Diabetes Acute kidney injury superimposed on CKD GERD (gastroesophageal reflux disease) Alcohol use disorder, moderate, in sustained remission Major depressive disorder, recurrent severe without psychotic features DVT (deep venous thrombosis) (~03/2020) Proximal left subclavian, basilic and brachial veins, started eliquis this stay, felt present prior to admission Chronic kidney disease -baseline Cr appears to be around 1.5 Atherosclerotic heart disease of [place] coronary artery with other forms of angina pectoris hx of CAD with prior stenting of proximal LAD, LCx, RCA Ischemic cardiomyopathy Onychodystrophy Chronic anticoagulation Eliquis Osteoarthritis of spine Hypothyroidism Hypertension Hyperlipidemia Diabetes Depression Anemia Foot drop, left H/O acute myocardial infarction H/O deep venous thrombosis developed compartment syndrome Surgical History Peritoneal dialysis catheter in situ (06/15/21) History of appendectomy 1995 History of excision of mass 06/08/2019: Subcutaneous mass on back History of removal of Port-a-Cath Port-A-Cath in place H/O vasectomy Hx of cholecystectomy History of coronary artery stent placement 5x H/O skin graft History of inguinal hernia repair, bilateral 2000 H/O removal of testicle left H/O colonoscopy (11/14/20) 08/2015 H/O esophagogastroduodenoscopy (11/14/20) 08/2015 Family History Grandfather Cancer skin cancer Parkinson disease Brother Hypertension Father Heart disease Mother Hypertension Stroke Aneurysm Grandmother Aneurysm Other Crohn's disease Denies family history of Anesthesia complication Bleeding disorder Social History Smoking and tobacco/nicotine status: never used tobacco/nicotine Second hand smoke exposure: No Alcohol intake: former Year of sobriety/quit date alcohol: 2015 Former alcohol use details: Only holidays Substance/Drug Use: never Lives independently: Yes Household members: significant other Marital status: Single Current occupational status: disabled Physical Exam 2 Const: COMMON NORMALS: no acute distress GENERAL APPEARANCE: cooperative and comfortable ORIENTATION/CONSCIOUSNESS: Yes awake, Yes oriented to person, Yes oriented to place and Yes oriented to time HENMT: COMMON NORMALS: normocephalic, atraumatic and hearing grossly normal bilaterally HEAD & SCALP: normocephalic and atraumatic Resp: COMMON NORMALS: normal respiratory effort, No retractions, No use of accessory muscles and clear to auscultation bilaterally AUSCULTATION: clear to auscultation bilaterally Cardio: COMMON NORMALS: regular rate, regular rhythm and No murmurs present (Cardio) RATE: regular rate RHYTHM: regular rhythm GI: COMMON NORMALS: Soft to palpation and No hepatosplenomegaly present A USCULTATION: Yes normoactive bowel sounds PALPATION: Yes Soft to palpation, No Tenderness to palpation present (GI), No Guarding due to palpation present (GI) and Yes No hepatosplenomegaly present Extremity: COMMON NORMALS: normal to inspection, capillary refill normal, no clubbing, cyanosis or edema, no calf tenderness and no pedal edema Neuro: SENSORIUM/ORIENTATION: Yes oriented to person, Yes oriented to place and Yes oriented to time Skin: COMMON NORMALS: no rashes or lesions noted GENERAL SKIN EXAM: no rashes or lesions noted Course 2 Vital Signs: Vital signs: Vital Signs Temperature 98.4 F 10/28/23 23:52 Pulse Rate 81 10/29/23 05:45 Respiratory Rate 18 10/29/23 06:36 Blood Pressure 132/87 10/29/23 05:45 Pulse Oximetry 96 10/29/23 05:45 Oxygen Delivery Me thod Room Air 10/28/23 22:17 MDM - Chest Pain Medical Decision Making Care signed out to Dr. Grubbs at change of shift. See final notes for diagnosis and disposition. Patient transferred over to my care shift change. Patient presented with a left-sided chest pain. Patient was worked up in a standard chest pain fashion. Patient is a dialysis patient with a known history of coronary artery disease with multiple stents and restenosis. Initial troponin was approximately 62-hour troponin approximately 62, patient is still having pain it was 8 when he arrived is down to a 4 currently he says started to come back we did give him 2 mg of morphine he already had [address] Dennis was consulted as well as Dr. Frank we will place the patient in CSU observation for further evaluation and treatment. Lab Data 10/29/23 03:54 10/29/23 03:54 Radiology Impressions Chest X-Ray 10/28/23 14:43 IMPRESSION: No acute findings. Laboratory Results WBC 8.47 10^3/uL (3.29-11.43) 10/28/23 16:10 RBC 3.10 10^6/uL (3.85-5.65) L 10/28/23 16:10 Hgb 10.60 g/dL (11.27-16.99) L 10/28/23 16:10 Hct 31.1 % (37-53) L 10/28/23 16:10 MCV 100.3 fl (82-101) 10/28/23 16:10 MCH 34.2 pg (27-33) H 10/28/23 16:10 MCHC 34.1 g/dL (30-55) 10/28/23 16:10 RDW 14.0 % (12.1-15.1) 10/28/23 16:10 Plt Count 244 10^3/cmm (157-399) 10/28/23 16:10 MPV 9.3 fL (7.4-10.4) 10/28/23 16:10 Neut % (Auto) 63.8 % 10/28/23 16:10 Lymph % (Auto) 21.7 % 10/28/23 16:10 Stephens % (Auto) 10.0 % 10/28/23 16:10 Eos % (Auto) 2.8 % 10/28/23 16:10 Baso % (Auto) 0.8 % 10/28/23 16:10 Neut # (Auto) 5.39 10^3/uL (1.8-7.7) 10/28/23 16:10 Lymph # (Auto) 1.8 10^3/uL (0.8-4.8) 10/28/23 16:10 Stephens # (Auto) 0.9 10^3/uL (0.2-0.9) 10/28/23 16:10 Eos # (Auto) 0.2 10^3/uL (0.0-0.8) 10/28/23 16:10 Baso # (Auto) 0.1 10^3/uL (0.0-0.1) 10/28/23 16:10 Nucleated RBC % (auto) 0 % 10/28/23 16:10 Nucleated RBCs # 0.0 /100WBC 10/28/23 16:10 Sodium 140 mmol/L (136-145) 10/28/23 16:10 Potassium 3.9 mmol/L (3.5-5.1) 10/28/23 16:10 Chloride 102 mmol/L (98-107) 10/28/23 16:10 Carbon Dioxide 24 mmol/L (22-29) 10/28/23 16:10 Anion Gap 17.9 (5-19) 10/28/23 16:10 BUN 33 mg/dL (6-20) H 10/28/23 16:10 Creatinine 3.5 mg/dL (0.7-1.2) H 10/28/23 16:10 GFR Calculation 18.3 mL/min (90-130) L 10/28/23 16:10 Glucose 120 mg/dL (65-115) H 10/28/23 16:10 Calculated Osmolality 298 mOsm/kg (285-295) H 10/28/23 16:10 Calcium 8.9 mg/dL (8.5-10.5) 10/28/23 16:10 Total Bilirubin 0.4 mg/dL (0.15-1.2) 10/28/23 16:10 AST 12 U/L (0-40) 10/28/23 16:10 ALT 9 U/L (0-41) 10/28/23 16:10 Alkaline Phosphatase 81 U/L (40-130) 10/28/23 16:10 Troponin T Baseline 60 ng/L (0-15) H 10/28/23 16:10 Troponin T 120 Minute 61.90 ng/L (0-15) H 10/28/23 18:16 Delta Troponin T 1.90 ABS# (0-10) 10/28/23 18:16 NT-Pro-B Natriuret Pep 4369 pg/mL (0-125) H 10/28/23 16:10 Total Protein 6.3 g/dL (6.6-8.7) L 10/28/23 16:10 Albumin 3.4 g/dL (3.5-5.2) L 10/28/23 16:10 Globulin 2.9 g/dL (1.3-4.6) 10/28/23 16:10 Discharge Plan Discharge Patient Disposition: Placed in Observation Admit Provider: Rafiq Mariee Clinical Impression: Chronic renal failure Chest pain Qualifiers: Chest pain type: unspecified Qualified Code(s): R07.9 - Chest pain, unspecified Coding Level of Care Code ED Chief Order Dispatcher for Chg Fwd Documented by User: Fantasma Grubbs DO 10/29/23 04:11 HPI - Chest Pain 2 General: Chief Complaint: Chest Pain Stated Complaint: cp Time Seen by Provider: 10/28/23 14:02 PFS ED 2 PFSH: Medical History Chronic systolic heart failure UTI (urinary tract infection) Peripheral arterial disease PVD (peripheral vascular disease) Worsening angina Elevated troponin 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 mellitus Hypertension Angina at rest Chest pain ESRD (end stage renal disease) Uremic encephalopathy Generalized anxiety disorder ESRD (end stage renal disease) D-dimer, elevated Acute on chronic congestive heart failure History of pulmonary embolism Diabetes Acute kidney injury superimposed on CKD GERD (gastroesophageal reflux disease) Alcohol use disorder, moderate, in sustained remission Major depressive disorder, recurrent severe without psychotic features DVT (deep venous thrombosis) (~03/2020) Proximal left subclavian, basilic and brachial veins, started eliquis this stay, felt present prior to admission Chronic kidney disease -baseline Cr appears to be around 1.5 Atherosclerotic heart disease of [place] coronary artery with other forms of angina pectoris hx of CAD with prior stenting of proximal LAD, LCx, RCA Ischemic cardiomyopathy Onychodystrophy Chronic anticoagulation Eliquis Osteoarthritis of spine Hypothyroidism Hypertension Hyperlipidemia Diabetes Depression Anemia Foot drop, left H/O acute myocardial infarction H/O deep venous thrombosis developed compartment syndrome Surgical History Peritoneal dialysis catheter in situ (06/15/21) History of appendectomy 1995 History of excision of mass 06/08/2019: Subcutaneous mass on back History of removal of Port-a-Cath Port-A-Cath in place H/O vasectomy Hx of cholecystectomy History of coronary artery stent placement 5x H/O skin graft History of inguinal hernia repair, bilateral 2000 H/O removal of testicle left H/O colonoscopy (11/14/20) 08/2015 H/O esophagogastroduodenoscopy (11/14/20) 08/2015 Family History Grandfather Cancer skin cancer Parkinson disease Brother Hypertension Father Heart disease Mother Hypertension Stroke Aneurysm Grandmother Aneurysm Other Crohn's disease Denies family history of Anesthesia complication Bleeding disorder Social History Smoking and tobacco/nicotine status: never used tobacco/nicotine Second hand smoke exposure: No Alcohol intake: former Year of sobriety/quit date alcohol: 2015 Former alcohol use details: Only holidays Substance/Drug Use: never Lives independently: Yes Household members: significant other Marital status: Single Current occupational status: disabled Course 2 Vital Signs: Vital signs: Vital Signs Temperature 98.4 F 10/28/23 23:52 Pulse Rate 81 10/29/23 05:45 Respiratory Rate 18 10/29/23 06:36 Blood Pressure 132/87 10/29/23 05:45 Pulse Oximetry 96 10/29/23 05:45 Oxygen Delivery Me thod Room Air 10/28/23 22:17 MDM - Chest Pain Medical Decision Making Patient transferred over to my care shift change. Patient presented with a left-sided chest pain. Patient was worked up in a standard chest pain fashion. Patient is a dialysis patient with a known history of coronary artery disease with multiple stents and restenosis. Initial troponin was approximately 62-hour troponin approximately 62, patient is still having pain it was 8 when he arrived is down to a 4 currently he says started to come back we did give him 2 mg of morphine he already had [address] Dennis was consulted as well as Dr. Frank we will place the patient in CSU observation for further evaluation and treatment. Lab Data 10/29/23 03:54 10/29/23 03:54 Radiology Impressions Chest X-Ray 10/28/23 14:43 IMPRESSION: No acute findings. Laboratory Results WBC 8.47 10^3/uL (3.29-11.43) 10/28/23 16:10 RBC 3.10 10^6/uL (3.85-5.65) L 10/28/23 16:10 Hgb 10.60 g/dL (11.27-16.99) L 10/28/23 16:10 Hct 31.1 % (37-53) L 10/28/23 16:10 MCV 100.3 fl (82-101) 10/28/23 16:10 MCH 34.2 pg (27-33) H 10/28/23 16:10 MCHC 34.1 g/dL (30-55) 10/28/23 16:10 RDW 14.0 % (12.1-15.1) 10/28/23 16:10 Plt Count 244 10^3/cmm (157-399) 10/28/23 16:10 MPV 9.3 fL (7.4-10.4) 10/28/23 16:10 Neut % (Auto) 63.8 % 10/28/23 16:10 Lymph % (Auto) 21.7 % 10/28/23 16:10 Stephens % (Auto) 10.0 % 10/28/23 16:10 Eos % (Auto) 2.8 % 10/28/23 16:10 Baso % (Auto) 0.8 % 10/28/23 16:10 Neut # (Auto) 5.39 10^3/uL (1.8-7.7) 10/28/23 16:10 Lymph # (Auto) 1.8 10^3/uL (0.8-4.8) 10/28/23 16:10 Stephens # (Auto) 0.9 10^3/uL (0.2-0.9) 10/28/23 16:10 Eos # (Auto) 0.2 10^3/uL (0.0-0.8) 10/28/23 16:10 Baso # (Auto) 0.1 10^3/uL (0.0-0.1) 10/28/23 16:10 Nucleated RBC % (auto) 0 % 10/28/23 16:10 Nucleated RBCs # 0.0 /100WBC 10/28/23 16:10 Sodium 140 mmol/L (136-145) 10/28/23 16:10 Potassium 3.9 mmol/L (3.5-5.1) 10/28/23 16:10 Chloride 102 mmol/L (98-107) 10/28/23 16:10 Carbon Dioxide 24 mmol/L (22-29) 10/28/23 16:10 Anion Gap 17.9 (5-19) 10/28/23 16:10 BUN 33 mg/dL (6-20) H 10/28/23 16:10 Creatinine 3.5 mg/dL (0.7-1.2) H 10/28/23 16:10 GFR Calculation 18.3 mL/min (90-130) L 10/28/23 16:10 Glucose 120 mg/dL (65-115) H 10/28/23 16:10 Calculated Osmolality 298 mOsm/kg (285-295) H 10/28/23 16:10 Calcium 8.9 mg/dL (8.5-10.5) 10/28/23 16:10 Total Bilirubin 0.4 mg/dL (0.15-1.2) 10/28/23 16:10 AST 12 U/L (0-40) 10/28/23 16:10 ALT 9 U/L (0-41) 10/28/23 16:10 Alkaline Phosphatase 81 U/L (40-130) 10/28/23 16:10 Troponin T Baseline 60 ng/L (0-15) H 10/28/23 16:10 Troponin T 120 Minute 61.90 ng/L (0-15) H 10/28/23 18:16 Delta Troponin T 1.90 ABS# (0-10) 10/28/23 18:16 NT-Pro-B Natriuret Pep 4369 pg/mL (0-125) H 10/28/23 16:10 Total Protein 6.3 g/dL (6.6-8.7) L 10/28/23 16:10 Albumin 3.4 g/dL (3.5-5.2) L 10/28/23 16:10 Globulin 2.9 g/dL (1.3-4.6) 10/28/23 16:10 All radiology interpretation(s) finalized by discharge Discharge Plan Discharge Patient Disposition: Placed in Observation Admit Provider: Rafiq Mariee Clinical Impression: Chronic renal failure Chest pain Qualifiers: Chest pain type: unspecified Qualified Code(s): R07.9 - Chest pain, unspecified Coding Level of Care Code ED Chief Order Dispatcher for Aaron Irene
[2023-10-28 16:34] LABS: Basophils # 0.1 10^3/uL (0.0-0.1); Basophils % 0.8 %; Eosinophils # 0.2 10^3/uL (0.0-0.8); Eosinophils % 2.8 %; Hematocrit 31.1 % (37-53); Lymphocytes # 1.8 10^3/uL (0.8-4.8); Lymphocytes % 21.7 %; Mean Corpuscular HGB Conc 34.1 g/dL (30-55); Mean Corpuscular Hemoglobin 34.2 pg (27-33); Mean Corpuscular Volume 100.3 fl (82-101); Mean Platelet Volume 9.3 fL (7.4-10.4); Monocytes # 0.9 10^3/uL (0.2-0.9); Neutrophils # 5.39 10^3/uL (1.8-7.7); Neutrophils % 63.8 %; Nucleated Red Blood Cells % 0 %; Platelet Count 244 10^3/cmm (157-399); White Blood Count 8.47 10^3/uL (3.29-11.43)
--- NOTE | 2023-10-28 16:49 | ECG_ITS ---
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 Measurements Intervals [place] Rate: 80 P: 38 TN: 192 QRS: 14 QRSD: 110 T: 59 QT: 403 QTc: 467 Interpretive Statements SINUS RHYTHM POSSIBLE ANTERIOR MYOCARDIAL INFARCTION , OF INDETERMINATE AGE [30 ms Q WAVE IN V3/V4, OR R < 0.2 mV IN V4] Compared to ECG 10/28/2023 14:03:01 No significant changes Electronically Signed On 10-28-2023 19:09:04 CDT by Karen Choi M.D. [id number]
[2023-10-28 17:02] LABS: Troponin(5th) Baseline 60 ng/L (0-15)
[2023-10-28 17:07] LABS: Alanine Aminotransferase 9 U/L (0-41); Albumin Level 3.4 g/dL (3.5-5.2); Alkaline Phosphatase 81 U/L (40-130); Anion Gap 17.9 (5-19); Aspartate Amino Transferase 12 U/L (0-40); Blood Urea Nitrogen 33 mg/dL (6-20); Calcium 8.9 mg/dL (8.5-10.5); Carbon Dioxide 24 mmol/L (22-29); Chloride 102 mmol/L (98-107); Creatinine Clr Calc Pharmacy 25.9385; Globulin 2.9 g/dL (1.3-4.6); Glomerular Filtration Rate 18.3 mL/min (90-130); Glucose 120 mg/dL (65-115); NT Pro B Type Natriuretic Pept 4369 pg/mL (0-125); Osmolality Calculated 298 mOsm/kg (285-295); Potassium 3.9 mmol/L (3.5-5.1); Sodium 140 mmol/L (136-145); Total Bilirubin 0.4 mg/dL (0.15-1.2); Total Protein 6.3 g/dL (6.6-8.7)
[2023-10-28] MEDS: nitroglycerin 1 gm/inch oint Pkt 1 INCH TOPICAL ×2 (17:11→23:17)
[2023-10-28] MEDS: morphine 4 mg/mL SDV 1 mL 2 MG IVP (19:19)
--- NOTE | 2023-10-28 20:43 | ECG_ITS ---
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 Measurements Intervals [place] Rate: 85 P: 13 NC: 172 QRS: -4 QRSD: 107 T: 49 QT: 393 QTc: 469 Interpretive Statements SINUS RHYTHM POSSIBLE ANTERIOR MYOCARDIAL INFARCTION , OF INDETERMINATE AGE [30 ms Q WAVE IN V3/V4, OR R < 0.2 mV IN V4] Compared to ECG 10/28/2023 16:49:36 No significant changes Electronically Signed On 10-29-2023 17:24:21 CDT by Garrison Mckinney M.D. [id number]
[2023-10-28 21:22] LABS: Troponin 5 6HR 63.74 ng/L (0-15); Troponin 5 6HR Delta 3.74 ng/L (0-12)
--- NOTE | 2023-10-28 22:04 | PM.HP ---
Providers/Chief Complaint Admitting Physician: Nancy Watson MD Primary Care Provider: Kp Montanez DO Chief Complaint: cp History of Present Illness Rei Queen II is a 53 year old male with a history of atherosclerotic heart disease, status post multiple PCI,h/o restenosed stents in Apr 2023, cardiomyopathy ,congestive heart failure, chronic kidney disease, on hemodialysis, is presenting with complaints of chest pain.He is known to have pulmonary embolism and Port-A-Cath thrombosis for which he is on long-term oral anticoagulation with Eliquis 2.5mg BID. Most recently he was on the hospital in September 2023 with c/o worsening of his chronic intermittent chest pain. He underwent stress test whihch reavled no evidence of ischemia. Medical management was advised. He has recently had a normal fistulogram last week for which he had transient interruption in Eliquis for 5 days and ASA/Plavix for 3 days pre procedure. He presented to ER today with c/o chest pain radiating to back and arms particularly into his left arm as well as into the neck and jaw, not significantly changed with nitro patch. Morphine provides partial relief . Review of Systems General: Reports: 10 or more systems reviewed and unremarkable except in HPI and below Const: Denies: fever(s), chills or body aches Eyes: Denies: change in vision, blurry vision or photophobia ENMT: Reports: hoarseness; Denies: throat pain, enlarged tonsils, odynophagia or nasal congestion Card: Denies: chest pain, palpitations, irregular heart rhythm, edema, swelling of feet/ankles, lightheadedness, pre-syncope, dyspnea on exertion or orthopnea Resp: Denies: dyspnea, productive cough, non-productive cough, wheezing, stridor, pain on inspiration, change in phlegm color, hemoptysis or chest congestion GI: Denies: abdominal pain, nausea, vomiting, hematemesis, coffee ground emesis, dysphagia, heartburn, diarrhea, constipation, GI cramping, change in stool character, hematochezia or melena : Denies: flank pain, dysuria, urinary frequency, urinary urgency, urinary hesitancy or hematuria Musc: Denies: neck pain, back pain, extremity pain, joint swelling, joint warmth or deformity Neuro: Denies: headache(s), numbness in extremities, weakness in extremities, sensory changes, difficulty walking, frequent falls, dizziness, vertigo, behavioral changes, Slurred speech present or seizure-like activity Psych: Denies: anxiety, depression, suicidal ideation or homicidal ideation Endo: Denies: polyuria, polydipsia, tired all the time, cold intolerance or hot flashes Dewey/Lymph: Denies: easy bruising or easy bleeding Medications/Allergies Home Medications Medication Instructions Recorded Confirmed Last Taken Type levothyroxine 88 mcg tablet 88 mcg PO QAM 02/09/21 10/29/23 10/28/23 History apixaban 2.5 mg tablet (Eliquis) 2.5 mg PO BID 09/14/21 10/29/23 10/28/23 History insulin degludec 200 unit/mL (3 52 unit SUBCUT QAM 12/11/21 10/29/23 10/28/23 History mL) subcutaneous pen (Tresiba FlexTouch U-200 insulin) bumetanide 2 mg tablet 2 mg PO BID 08/16/22 10/29/23 10/28/23 History atorvastatin 40 mg tablet 40 mg PO QAM #90 tabs 10/25/22 10/29/23 10/28/23 Rx blood-glucose meter,continuous 02/27/23 10/29/23 03/15/23 History (Dexcom G7 Monkey Trainer) diphenhydramine HCl 25 mg tablet 50 mg PO DAILY PRN Allergy Symptoms 05/02/23 10/29/23 Unknown History (Benadryl Allergy) insulin lispro 100 unit/mL See Rx Instructions .Route .COMPLEX 05/02/23 10/29/23 07/06/23 History subcutaneous pen (Humalog KwikPen (U-100) Insulin) blood-glucose sensor (Dexcom G7 #9 ea 05/14/23 10/29/23 Unknown Rx Sensor device) clopidogrel 75 mg tablet 75 mg PO DAILY 05/18/23 10/29/23 10/28/23 History gabapentin 100 mg capsule 100 mg PO BID 07/07/23 10/29/23 10/28/23 History AFO to left #1 ea 07/25/23 10/29/23 Unknown Rx Diabetic Shoes with Custom insoles #1 ea 07/25/23 10/29/23 Unknown Rx nitroglycerin 0.4 mg sublingual 0.4 mg sublingual Q5M PRN Chest 08/27/23 10/29/23 Unknown Rx tablet (Nitrostat) Pain #25 tabs carvedilol 6.25 mg tablet 6.25 mg PO BID 10/01/23 10/29/23 10/28/23 History hydrocortisone 2.5 % topical cream See Rx Instructions .Route .COMPLEX 10/01/23 10/29/23 Unknown History with perineal applicator (Procto-Med HC) isosorbide mononitrate 30 mg See Rx Instructions .Route 10/03/23 10/29/23 10/28/23 Rx tablet,extended release 24 hr .COMPLEX #30 tabs bupropion HCl 300 mg 24 hr tablet, 300 mg PO QAM #30 tabs 10/16/23 10/29/23 10/28/23 Rx extended release buspirone 10 mg tablet 10 mg PO BID #60 tabs 10/16/23 10/29/23 10/28/23 Rx aspirin 81 mg tablet,delayed 81 mg PO DAILY 10/24/23 10/29/23 10/28/23 History release fluoxetine 40 mg capsule 40 mg PO QAM 10/24/23 10/29/23 10/28/23 History lorazepam 1 mg tablet 1 mg PO Q8H PRN SEVER NAUSEA 10/24/23 10/29/23 Unknown History ranolazine 500 mg tablet,extended 500 mg PO BID 10/24/23 10/29/23 10/28/23 History release,12 hr trazodone 100 mg tablet 300 mg PO BEDTIME PRN insomnia 10/24/23 10/29/23 10/27/23 History dulaglutide 1.5 mg/0.5 mL 1.5 mg SUBCUT Q7D 10/29/23 10/29/23 Unknown History subcutaneous pen injector (Trulicity) vit B,C-folic ac 800 mcg-zinc 12.5 1 tab PO DAILY 10/29/23 10/29/23 10/28/23 History mg-selen-D3 2,000 unit-vit E tablet (RenaPlex-D) Allergies Allergy/AdvReac Type Severity Reaction Status Date / Time Iodinated Contrast Media Allergy Severe ALGY-Difficulty Verified 10/24/23 11:05 Breathing iodine Allergy Severe ALGY-Difficulty Verified 10/24/23 11:05 Breathing metoclopramide [From Reglan] Allergy Severe ALGY-Difficulty Verified 10/24/23 11:05 Breathing nalbuphine [From Nubain] Allergy Severe ADR-Diarrhe Verified 10/24/23 11:05 a naproxen [From Naprosyn] Allergy Severe ADR-Vomitin Verified 10/24/23 11:05 g Sulfa (Sulfonamide Allergy Severe ALGY-Difficulty Verified 10/24/23 11:05 Antibiotics) Breathing ketorolac Allergy Intermediate ADR-Nausea Verified 10/24/23 11:05 ondansetron [From Zofran] Allergy Intermediate ADR-Abdominal Verified 10/24/23 11:05 Pain prochlorperazine Allergy Intermediate ADR-Irritab Verified 10/24/23 11:05 [From Compazine] le codeine AdvReac Severe ALGY-Anaphy Verified 10/24/23 11:05 laxis haloperidol [From Haldol] AdvReac Intermediate ADR-Irritab Verified 10/24/23 11:05 le PFSH Acute PFSH: Medical History Chronic systolic heart failure UTI (urinary tract infection) Peripheral arterial disease PVD (peripheral vascular disease) Worsening angina Elevated troponin 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 mellitus Hypertension Angina at rest Chest pain ESRD (end stage renal disease) Uremic encephalopathy Generalized anxiety disorder ESRD (end stage renal disease) D-dimer, elevated Acute on chronic congestive heart failure History of pulmonary embolism Diabetes Acute kidney injury superimposed on CKD GERD (gastroesophageal reflux disease) Alcohol use disorder, moderate, in sustained remission Major depressive disorder, recurrent severe without psychotic features DVT (deep venous thrombosis) (~03/2020) Proximal left subclavian, basilic and brachial veins, started eliquis this stay, felt present prior to admission Chronic kidney disease -baseline Cr appears to be around 1.5 Atherosclerotic heart disease of [place] coronary artery with other forms of angina pectoris hx of CAD with prior stenting of proximal LAD, LCx, RCA Ischemic cardiomyopathy Onychodystrophy Chronic anticoagulation Eliquis Osteoarthritis of spine Hypothyroidism Hypertension Hyperlipidemia Diabetes Depression Anemia Foot drop, left H/O acute myocardial infarction H/O deep venous thrombosis developed compartment syndrome Surgical History Peritoneal dialysis catheter in situ (01/27/22) History of appendectomy 1995 History of excision of mass 06/08/2019: Subcutaneous mass on back History of removal of Port-a-Cath Port-A-Cath in place H/O vasectomy Hx of cholecystectomy History of coronary artery stent placement 5x H/O skin graft History of inguinal hernia repair, bilateral 2000 H/O removal of testicle left H/O colonoscopy (11/14/20) 08/2015 H/O esophagogastroduodenoscopy (11/14/20) 08/2015 Family History Grandfather Cancer skin cancer Parkinson disease Brother Hypertension Father Heart disease Mother Hypertension Stroke Aneurysm Grandmother Aneurysm Other Crohn's disease Denies family history of Anesthesia complication Bleeding disorder Social History Smoking and tobacco/nicotine status: never used tobacco/nicotine Second hand smoke exposure: No Alcohol intake: former Year of sobriety/quit date alcohol: 2015 Former alcohol use details: Only holidays Substance/Drug Use: never Lives independently: Yes Household members: significant other Marital status: Single Current occupational status: disabled Vitals/I&O/Wt Last Vital Signs Temp 98.3 F 10/28/23 14:09 Pulse 86 10/28/23 21:47 Resp 16 10/28/23 21:47 BP 163/89 10/28/23 21:47 Pulse Ox 92 10/28/23 21:47 O2 Del Method Room Air 10/28/23 18:38 Weight last 48 hrs Weight 100 kg Physical Exam Narrative: General: No acute distress, AO x3 HEENT: PERRLA, pupils bilaterally equal and reactive, pallors not present Chest: Normal vesicular breath sounds, no added sounds, equal good air entry bilaterally CVS: S1-S2 regular, no murmurs, no tachycardia, no gallops, no rubs Abdomen: Soft, nontender, no organomegaly, bowel sounds present Neuro: No focal deficits, no facial deformity, AO x3, power 5/5 in all limbs Data 10/29/23 03:54 10/29/23 03:54 Other data: Date of Service: 10/01/23 Procedure(s): CV. echo complete* [id number] CONCLUSIONS LV systolic function is moderately reduced with EF of 35-40%. Grade 1 diastolic dysfunction Left atrial dilation Mild mitral regurgitation Mild pulmonic regurgitation Compared to prior echocardiogram from 2021, LV systolic function is improved and is moderately reduced. [address] [address] Nuclear Medicine Report Signed Patient: Rei Queen II Unit #: [id number] : 1970 Age/Sex: 53 / M ADM Date: 10/01/23 Loc: [facility] Room/Bed: [facility] Attending Dr: Rosi Etienne MD Ordering Provider/Ordering MD: Rosi Etienne MD Date of Service: 10/02/23 Procedure(s): NM michelle perf SPECT r/s* [id number] Accession Number(s): [id number] Report Number: [id number] NM michelle perf SPECT r/s* [id number] Rei Queen Age: 53 Gender: M : 1970 Exam Date: 10/02/2023 06:24 Ordering Phys: Rosi Etienne MD Technologist: BALDEMAR Hutchison Exam Location: [facility] Indications: CHEST PAIN STRESS TEST Please see separate stress test report in [facility] for full findings IMAGE PROTOCOL Rest/Stress 1 Lexiscan Day Radiopharmaceutical Dose (mCi) Administration Site Administered by Rest: Tc-99m 10.9 IV BALDEMAR Johnston Sestamibi Stress:Tc-99m 33.0 IV BALDEMAR Johnston Sestamibi Rest: 02-Oct-2023 60 Discovery 630 Stress: 02-Oct-2023 30 Discovery 630 0.4mg Lexiscan. Supine position only as patient was unable to lay prone. SPECT RESULTS Technical Quality: Excellent Raw Data Analysis: Normal Image Corrections: No attenuation or motion correction applied Summed Stress Score: 18 Summed Rest Score: 22 Summed Difference Score: 0 PERFUSION FINDINGS Large sized area of fixed perfusion defect is seen in the anterior, apical, apical anterior rizzo. This is consistent with large area of prior infarct in the LAD territory. Large areas of fixed perfusion defect is seen in apical inferior and apical lateral rizzo. This is consistent with large area of prior infarct seen in RCA and left circumflex artery territories. FUNCTIONAL RESULTS (calculated via Gated SPECT) Stress Image LV EF (%): 36 Stress EDV (mL):200 TID: 0.98 Stress ESV (mL):128 FUNCTIONAL FINDINGS: LV systolic function moderate to severely reduced with EF of 36%. IMPRESSIONS 1. Abnormal myocardial perfusion imaging with large areas of prior infarcts seen in the LAD, RCA and left circumflex artery territories. 2. LV systolic function is moderate to severely reduced with EF of 36% Launch?[employer] [facility] [address] [place] [address] XRay Report Signed Patient: Rei Queen II Unit #: [id number] : 1970 Age/Sex: 53 / M ADM Date: 10/28/23 Loc: ER Room/Bed: Attending Dr: Ordering Provider/Ordering MD: Ellen Nath Date of Service: 10/28/23 Procedure(s): XR chest 1V portable [id number] Accession Number(s): [id number] Report Number: [id number] PROCEDURE INFORMATION: Exam: XR Chest Exam date and time: 10/28/2023 2:57 PM Age: 53 years old Clinical indication: Pain; Angina pectoris; Additional info: Chest pain TECHNIQUE: Imaging protocol: Radiologic exam of the chest. Views: 1 view. COMPARISON: CR XR chest 1V portable [id number] 10/24/2023 11:21 AM FINDINGS: Tubes, catheters and devices: A left-sided VAD is in good position with the catheter tip in the lower SVC. Lungs: Unremarkable. No consolidation or mass. Pleural spaces: Unremarkable. No pleural effusion. No pneumothorax. Heart/Mediastinum: Unremarkable. No cardiomegaly. Bones/joints: Sternal sutures are noted. XR/XR chest 1V portable [id number] IMPRESSION: No acute findings. A&P Assessment and plan (1) Chest pain: Chronic recurrent chest pain with acute worsening today Past h/o CAD + multiple stents and restenosis, last in Apr 2023 Last Echo from 09/2023 with EF 35-40%, improved over 2021 recent stress test 09/2023 showing multiple areas of fixed defects s/o past infarcts, no new ischemic changes recently followed up with cardiology on October 20 Returns with chest pain today EKG without acute ST-T wave changes trop series 60--> 61---> 63 without signficant delta Cardiology consult ordered from ER low probability PE given he is on chronic a/c with Eliquis. NPO post MN prn morphine for chest pain- prior use without incidence on multiple visits (2) CRF (chronic renal failure): chronic, on maintainence dialysis Consult nephrology to maintain schedule in hospital Plan DM: insulin sliding scale Hypothyroidism: continue levothyroxine chronic systolic CHF: continue Bumex at home dosing + HD Attestations Medical Necessity Statement*: less than 2 midnight stay anticipated Chest pain, recent non invasive ischemic w/up unremarkable, needs cardiology evaluation Coding Level of Care Code Acute Code for Chg Fwd Moderate MDM includes number and complexity of problems actively addressed during encounter, amount and/or complexity of data reviewed/ordered and described risk of complication, morbidity or mortality of management as documented Diagnoses Chest pain R07.9 CRF (chronic renal failure) N18.9
[2023-10-29] VITALS (14 sets, daily range): BP systolic 125–171; BP diastolic 55–96; PULSE 81–94; RESP 13–25; TEMP 36.5–36.8; O2SAT 91–97; BMI 39.6
[2023-10-29] MEDS: morphine 4 mg/mL SDV 1 mL 2 MG IVP ×5 (00:37→23:53)
[2023-10-29] MEDS: nitroglycerin 1 gm/inch oint Pkt 1 INCH TOPICAL (04:11)
[2023-10-29 04:33] LABS: Basophils # 0.1 10^3/uL (0.0-0.1); Basophils % 0.8 %; Eosinophils # 0.2 10^3/uL (0.0-0.8); Eosinophils % 2.8 %; Hematocrit 31.2 % (37-53); Lymphocytes # 2.3 10^3/uL (0.8-4.8); Lymphocytes % 27.3 %; Mean Corpuscular HGB Conc 33.3 g/dL (30-55); Mean Corpuscular Hemoglobin 33.9 pg (27-33); Mean Corpuscular Volume 101.6 fl (82-101); Mean Platelet Volume 9.5 fL (7.4-10.4); Monocytes # 0.7 10^3/uL (0.2-0.9); Monocytes % 8.3 %; Neutrophils # 4.94 10^3/uL (1.8-7.7); Nucleated Red Blood Cells % 0 %; Platelet Count 240 10^3/cmm (157-399); Red Blood Count 3.07 10^6/uL (3.85-5.65); Red Cell Distribution Width 13.9 % (12.1-15.1); White Blood Count 8.24 10^3/uL (3.29-11.43)
[2023-10-29 04:52] LABS: Alanine Aminotransferase 9 U/L (0-41); Albumin Level 3.6 g/dL (3.5-5.2); Alkaline Phosphatase 77 U/L (40-130); Anion Gap 14.7 (5-19); Aspartate Amino Transferase 10 U/L (0-40); Blood Urea Nitrogen 37 mg/dL (6-20); Carbon Dioxide 28 mmol/L (22-29); Chloride 101 mmol/L (98-107); Creatinine Clr Calc Pharmacy 24.9039; Globulin 2.6 g/dL (1.3-4.6); Glomerular Filtration Rate 16.6 mL/min (90-130); Glucose 107 mg/dL (65-115); Osmolality Calculated 299 mOsm/kg (285-295); Potassium 3.7 mmol/L (3.5-5.1); Sodium 140 mmol/L (136-145); Total Bilirubin 0.5 mg/dL (0.15-1.2); Total Protein 6.2 g/dL (6.6-8.7)
[2023-10-29] MEDS: levothyroxine 88 mcg Tablet PO (06:46)
[2023-10-29] MEDS: atorvastatin 40 mg Tablet PO (06:46)
[2023-10-29] MEDS: buPROPion XL (24 HR) 300 mg Tablet PO (06:46)
--- NOTE | 2023-10-29 08:03 | P.CONIM_ITS ---
Providers/Reason For Consult 2 Consulting Physician/Specialty*: Garrison Mckinney MD/ Cardiology Reason for Consult*: Worsening angina Requesting Physician: Dr Grubbs Attending Physician: Nancy Watson MD Primary Care Provider: Kp Montanez DO History of Present Illness History of Present Illness Rei Queen II is a 53 year old male with past medical history of CAD, end- stage renal disease who has presented with severe substernal chest pain. According to patient he has been having chest pain for the last month or so. It is on and off. Says it is substernal with radiation to the arms. He was admitted last month and had stress test performed that showed mostly scar tissue. Medical therapy was pursued. His troponin is elevated at 60 at baseline and has not trended up significantly since. EKG has nonspecific changes. Multiple ER visits. Review of Systems 2 General: Reports: 10 or more systems reviewed and unremarkable except in HPI and below Card: Reports: chest pain Medications/Allergies Home Medications Medication Instructions Recorded Confirmed Last Taken Type levothyroxine 88 mcg tablet 88 mcg PO QAM 02/09/21 10/29/23 10/28/23 History apixaban 2.5 mg tablet (Eliquis) 2.5 mg PO BID 09/14/21 10/29/23 10/28/23 History insulin degludec 200 unit/mL (3 52 unit SUBCUT QAM 12/11/21 10/29/23 10/28/23 History mL) subcutaneous pen (Tresiba FlexTouch U-200 insulin) bumetanide 2 mg tablet 2 mg PO BID 08/16/22 10/29/23 10/28/23 History atorvastatin 40 mg tablet 40 mg PO QAM #90 tabs 10/25/22 10/29/23 10/28/23 Rx blood-glucose meter,continuous 02/27/23 10/29/23 03/15/23 History (Dexcom G7 Cake Wringer) diphenhydramine HCl 25 mg tablet 50 mg PO DAILY PRN Allergy Symptoms 05/02/23 10/29/23 Unknown History (Benadryl Allergy) insulin lispro 100 unit/mL See Rx Instructions .Route .COMPLEX 05/02/23 10/29/23 07/06/23 History subcutaneous pen (Humalog KwikPen (U-100) Insulin) blood-glucose sensor (Dexcom G7 #9 ea 05/14/23 10/29/23 Unknown Rx Sensor device) clopidogrel 75 mg tablet 75 mg PO DAILY 05/18/23 10/29/23 10/28/23 History gabapentin 100 mg capsule 100 mg PO BID 07/07/23 10/29/23 10/28/23 History AFO to left #1 ea 07/25/23 10/29/23 Unknown Rx Diabetic Shoes with Custom insoles #1 ea 07/25/23 10/29/23 Unknown Rx nitroglycerin 0.4 mg sublingual 0.4 mg sublingual Q5M PRN Chest 08/27/23 10/29/23 Unknown Rx tablet (Nitrostat) Pain #25 tabs carvedilol 6.25 mg tablet 6.25 mg PO BID 10/01/23 10/29/23 10/28/23 History hydrocortisone 2.5 % topical cream See Rx Instructions .Route .COMPLEX 10/01/23 10/29/23 Unknown History with perineal applicator (Procto-Med ) isosorbide mononitrate 30 mg See Rx Instructions .Route 10/03/23 10/29/23 10/28/23 Rx tablet,extended release 24 hr .COMPLEX #30 tabs bupropion HCl 300 mg 24 hr tablet, 300 mg PO QAM #30 tabs 10/16/23 10/29/23 10/28/23 Rx extended release buspirone 10 mg tablet 10 mg PO BID #60 tabs 10/16/23 10/29/23 10/28/23 Rx aspirin 81 mg tablet,delayed 81 mg PO DAILY 10/24/23 10/29/23 10/28/23 History release fluoxetine 40 mg capsule 40 mg PO QAM 10/24/23 10/29/23 10/28/23 History lorazepam 1 mg tablet 1 mg PO Q8H PRN SEVER NAUSEA 10/24/23 10/29/23 Unknown History ranolazine 500 mg tablet,extended 500 mg PO BID 10/24/23 10/29/23 10/28/23 History release,12 hr trazodone 100 mg tablet 300 mg PO BEDTIME PRN insomnia 10/24/23 10/29/23 10/27/23 History dulaglutide 1.5 mg/0.5 mL 1.5 mg SUBCUT Q7D 10/29/23 10/29/23 Unknown History subcutaneous pen injector (Trulicity) vit B,C-folic ac 800 mcg-zinc 12.5 1 tab PO DAILY 10/29/23 10/29/23 10/28/23 History mg-selen-D3 2,000 unit-vit E tablet (RenaPlex-D) Allergies Allergy/AdvReac Type Severity Reaction Status Date / Time Iodinated Contrast Media Allergy Severe ALGY-Difficulty Verified 10/24/23 11:05 Breathing iodine Allergy Severe ALGY-Difficulty Verified 10/24/23 11:05 Breathing metoclopramide [From Reglan] Allergy Severe ALGY-Difficulty Verified 10/24/23 11:05 Breathing nalbuphine [From Nubain] Allergy Severe ADR-Diarrhe Verified 10/24/23 11:05 a naproxen [From Naprosyn] Allergy Severe ADR-Vomitin Verified 10/24/23 11:05 g Sulfa (Sulfonamide Allergy Severe ALGY-Difficulty Verified 10/24/23 11:05 Antibiotics) Breathing ketorolac Allergy Intermediate ADR-Nausea Verified 10/24/23 11:05 ondansetron [From Zofran] Allergy Intermediate ADR-Abdominal Verified 10/24/23 11:05 Pain prochlorperazine Allergy Intermediate ADR-Irritab Verified 10/24/23 11:05 [From Compazine] le codeine AdvReac Severe ALGY-Anaphy Verified 10/24/23 11:05 laxis haloperidol [From Haldol] AdvReac Intermediate ADR-Irritab Verified 10/24/23 11:05 le Current Medications Generic Name Dose Route Start Last Admin Trade Name Freq PRN Reason Stop Dose Admin Atorvastatin Calcium 40 mg 10/29/23 06:00 10/29/23 06:46 Atorvastatin 40 Mg Tablet PO 40 mg QAM RANDY Administration Bupropion HCl 300 mg 10/29/23 06:00 10/29/23 06:46 Bupropion Xl (24 Hr) 300 Mg Tablet PO 300 mg QAM RANDY Administration Levothyroxine Sodium 88 mcg 10/29/23 06:00 10/29/23 06:46 Levothyroxine 88 Mcg Tablet PO 88 mcg QAM RANDY Administration Morphine Sulfate 2 mg 10/28/23 22:12 10/29/23 06:36 Morphine 4 Mg/Ml Sdv 1 Ml IVP 2 mg Q4H PRN Administration SEVERE PAIN Nitroglycerin 1 inch 10/28/23 22:12 10/29/23 04:11 Nitroglycerin 1 Gm/Inch Oint Pkt TOPICAL 1 inch Q6H RANDY Administration PFSH Acute 2 PFSH: Medical History Chronic systolic heart failure UTI (urinary tract infection) Peripheral arterial disease PVD (peripheral vascular disease) Worsening angina Elevated troponin 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 mellitus Hypertension Angina at rest Chest pain ESRD (end stage renal disease) Uremic encephalopathy Generalized anxiety disorder ESRD (end stage renal disease) D-dimer, elevated Acute on chronic congestive heart failure History of pulmonary embolism Diabetes Acute kidney injury superimposed on CKD GERD (gastroesophageal reflux disease) Alcohol use disorder, moderate, in sustained remission Major depressive disorder, recurrent severe without psychotic features DVT (deep venous thrombosis) (~03/2020) Proximal left subclavian, basilic and brachial veins, started eliquis this stay, felt present prior to admission Chronic kidney disease -baseline Cr appears to be around 1.5 Atherosclerotic heart disease of [place] coronary artery with other forms of angina pectoris hx of CAD with prior stenting of proximal LAD, LCx, RCA Ischemic cardiomyopathy Onychodystrophy Chronic anticoagulation Eliquis Osteoarthritis of spine Hypothyroidism Hypertension Hyperlipidemia Diabetes Depression Anemia Foot drop, left H/O acute myocardial infarction H/O deep venous thrombosis developed compartment syndrome Surgical History Peritoneal dialysis catheter in situ (06/15/21) History of appendectomy 1995 History of excision of mass 06/08/2019: Subcutaneous mass on back History of removal of Port-a-Cath Port-A-Cath in place H/O vasectomy Hx of cholecystectomy History of coronary artery stent placement 5x H/O skin graft History of inguinal hernia repair, bilateral 1999 H/O removal of testicle left H/O colonoscopy (11/14/20) 08/2015 H/O esophagogastroduodenoscopy (11/14/20) 08/2015 Family History Grandfather Cancer skin cancer Parkinson disease Brother Hypertension Father Heart disease Mother Hypertension Stroke Aneurysm Grandmother Aneurysm Other Crohn's disease Denies family history of Anesthesia complication Bleeding disorder Social History Smoking and tobacco/nicotine status: never used tobacco/nicotine Second hand smoke exposure: No Alcohol intake: former Year of sobriety/quit date alcohol: 2016 Former alcohol use details: Only holidays Substance/Drug Use: never Lives independently: Yes Household members: significant other Marital status: Single Current occupational status: disabled Vitals/I&O/Wt Last Vital Signs Temp 98.4 F 10/28/23 23:52 Pulse 81 10/29/23 05:45 Resp 18 10/29/23 06:36 BP 132/87 10/29/23 05:45 Pulse Ox 96 10/29/23 05:45 O2 Del Method Room Air 10/28/23 22:17 Weight last 48 hrs Weight 238 lb 7 oz Weight 238 lb 7 oz Weight 220 lb 7.396 oz Physical Exam 2 Narrative: GENERAL: Patient is alert, awake and oriented x3. [] NECK: No jugular vein distension. [] HEENT: No cyanosis. No icterus. No pallor. [] HEART: Regular S1 and S2. No murmur, rub or gallop. [] LUNGS: Clear to auscultate bilaterally. [] CENTRAL NERVOUS SYSTEM: Grossly nonfocal. [] EXTREMITIES: Lower extremities with 1+ edema bilaterally. Data 10/30/23 03:22 10/30/23 03:22 A&P Assessment and plan (1) Chest pain: (2) ESRD (end stage renal disease): Plan Patient has significant CAD history and has been having worsening chest pain symptoms. Multiple ER visits. I discussed all options including continued medical therapy versus invasive angiogram given his prior CAD history. He wants to proceed with coronary angiogram with possible percutaneous coronary intervention. He is NPO. He has contrast allergy. We will give Solu-Medrol prior to procedure along with Benadryl. Risks and benefits of the procedure been discussed. He understands these and wants to proceed. Continue aspirin and Plavix. Thank you for involving us with care of this patient. We will continue to follow. Please call with questions. Consult Attestations 2 Medical Necessity Statement: Care expected to cross 2 midnights. Coding Level of Care Code Acute Code for [facility] Diagnoses Chest pain R07.9 ESRD (end stage renal disease) N18.6
--- NOTE | 2023-10-29 08:20 | XACV_ITS ---
Exam Room: 2 Ht: 165 cm Wt: 108 kg BSA: 2.28 m2 Gender: Male : 1970 Any Known Allergies: Other Exam Priority: Routine Procedure(s): Procedure Description: Diagnostic procedure Procedure Description: PCI procedure Procedure Description: Coronary IVUS Procedure Description: Drug Eluting Coronary Stent Procedure Description: PTCA Procedure Description: Miscellaneous Procedure Description: ACT Procedure Description: Coronary Angiography Diagnostic Cath Status: Urgent Diagnostic Findings * Left Main has no significant disease. * Circumflex has no significant disease with patent prior stent. OM 1 has patent prior stents. * Apical Left Anterior Descending: significant 80-90% stenosis, MEGHANA: 3 flow. Proximal to mid vessel has patent prior stents. * Ostial to proximal RCA has moderate 30-40% stenosis. Patent prior stent. Posterior Descending Right: severe 90% stenosis, MEGHANA: 3 flow. PLV is occluded distally with collaterals from left system. * Coronary angiography shows right dominance. PCI Status: Urgent PCI Indication: Other Interventional Findings * Procedure detail: We engaged RCA with JR4 guide catheter. IV heparin was administered to maintain anticoagulation. 0.014 run-through guidewire was used to cross the stenosis and was put in distal vessel. We predilated the stenosis with 2.25x20 mm semicompliant balloon. This was followed by placement of 2.0 x 26 mm resolute Jed drug-eluting stent in PDA. At this time final angiogram was performed that showed excellent stent expansion and MEGHANA-3 flow. As ostial RCA had moderate disease, we confirmed with IVUS that it has not significant. MLA of 4.9 mm2 was obtained. Guidewire and guide catheter were removed. Patient left the Dental [facility] in stable condition.. * Posterior Descending Right: 90% stenosis treated with a AB TREK 2.25X20 RX BALLOON, and MDT R JED 2.0X26 GLORY. 0% residual stenosis, MEGHANA: 3 flow. Conclusions 1. Severe PDA stenosis s/p PCI with 1 stent. 2. Apical LAD has severe disease but is very distal with no significant area of myocardium supplied. 3. Posterior Descending Right was treated with a Balloon, and Drug Eluting Stent. Recommendations * Aggressive risk factor modification. * Continue eliquis and plavix. * Outpatient cardiology follow up in 4 weeks. Interventional RX Recommendation: PCI w/o planned CABG Diagnostic RX Recommendation: PCI w/o planned CABG Anticoagulation: Heparin Pressures Phase:Rest AO : 145 / 55 ( 90 ) @ 10:26:00 AM 137 / 51 ( 84 ) @ 10:34:00 AM Clinical Evaluation EBL: 5mL-10mL Procedural Details Procedure Consent Obtained. Admit Source: In Patient. Pre-Procedure Time Out. Identified patient by full name and date of as verbalized by the patient/guarantor. Does the consent match the physician's order: Yes. Accurate & Complete Informed Consent: Yes. Inpatient/Outpatient History & Physical on Chart: Yes. If H&P is completed, is and addenduem needed: No; If yes, is the addendum complete: N/A. Visualize and Verify Site with Patient/Guarantor: N/A. Relevant Radiology Images available: N/A. The risks, benefits, and alternatives of sedation and/or procedure were discussed by physician. The patient agrees to continue. Procedure started. [facility] Clinical Fraility Score: 3: Managing Well. [facility] Indications: Worsening Angina. Chest Pain Symptom Assessment: Typical Angina Symptoms. Correct patient, site and procedure confirmed by cath team. Current diagnosis: Chest Pain. PERRLA. Strong, equal hand leaf blender bilaterally. Lungs clear x 5 lobes. IV Site on Arrival:Central line left subclavian. IV Fluids: 0.9% NaCl at KVO. 0 mL infused prior to geophysical laboratory director. Pre Procedural Pulses: bilateral dorsalis pedis was Doppled. Pre Procedural Pulses: bilateral posterior tibial was Doppled. Oxygen started at 2liters/min via nasal canula. bilateral groins was prepped with chloroprep then draped in the usual sterile fashion. Baseline sample Acquired. HR: 82 BPM. Physician notified. Physician arrived. Physician scrubbed in. Immediate Pre-Procedure Time Out. Correct Patient: Yes; Correct Procedure: Yes; Correct Site: Yes; Correct Patient Position: Yes; Correct Supplies: Yes; Dried Flammable Prep: Yes; Blood Products Available: No;. Lidocaine 1% infiltrated to the right groin. Arterial access obtained with micropuncture set. A 5 beninese JL4 catheter in over wire. Multiple views taken of left coronary artery. Catheter removed over the standard wire. A 5 beninese JR4 catheter in over wire. Multiple views taken of right coronary artery. Catheter removed over the standard wire. 6 beninese JR 4 guide catheter was inserted over the wire. Runthrough guidewire was advanced through the guide catheter to lesion in the PDA. Balloon inserted to lesion in the PDA. Inflation number : 1 A AB TREK 2.25X20 RX BALLOON was prepped and advanced across the R PDA , then inflated to 8 DICK for 0:10 seconds. Inflation number: 2 The AB TREK 2.25X20 RX BALLOON was reinflated across the R PDA, to 8 DICK for 0:10 seconds. Balloon out. Stent inserted to lesion in the PDA. Inflation Number : 3 A MDT R JED 2.0X26 GLORY -Lot Number# [id number] EXP 04-06-24 was prepped and advanced across the R PDA. The stent was deployed at 12 DICK for 0:20 seconds. Stent balloon out over wire. Results checked. ACT drawn. Results out of range high results. Therapeutic limits - pre-heparin administration 90-150 seconds and monitoring heparin during a vascular procedure >250 seconds. IVUS catheter in over runthrough wire. IVUS run performed of ostial RCA. IVUS catheter out over runthrough wire. Results checked. Runthrough wire out. ACT drawn. Results - out of range high result s. Therapeutic limits - pre-heparin administration 90-150 seconds and monitoring heparin during a vascular procedure >250 seconds. Guide catheter out. A Right femoral angiogram was performed to determine safe placement of closure device. A Suture was successful obtaining hemostatsis at the Right Femoral artery insertion site. Sheath(s) sutured into position with 2-0 silk and sterile 4x4's and Op-site applied over the site. No oozing or signs and symptoms of hematoma noted. Arterial sheath flushed and connected to tranducer and pressure bag with heparinized saline. Post Procedure: Pulses reassessed and unchanged. PERRLA. Strong, equal hand leaf blender bilaterally. No VTE prophylaxis required. Medication's Wasted: Nitro = 49.8 mg. Medication's Wasted: Lidocaine 1% = 10 mL. Medication's Wasted: Other = Versed 1 mg. Medication's Wasted: Other = Fentanyl 75mcg. Total IV fluids: 40 mL. Post-op diagnosis: Severe PDA stenosis, status post PCI placement of 1 stent. Complications: None. Estimated blood loss: 5mL-10mL. Responsiveness - Normal response to verbal stimuli; alert and oriented, PERRLA. Airway - Unaffected, no intervention required; spontaneous ventilation. Circulation: W/N/L, pulses unchanged. Nausea/Vomiting: No. Procedure completed. Patient transferred by bed to CPRU. Vital chart was stopped. Medication's Wasted: Heparin = 1000 units. Access Site Site: Right Femoral artery Sheath Size: 6 Fr Hemostasis Method: Suture Hemostasis Success: Successful Procedure Medications Start: 9:05 AM Stop: 9:05 AM Medication: Solu-Medrol (methylprednisolone) Amount: 125 mg Route: I.V. Start: 9:06 AM Stop: 9:06 AM Medication: Diphendryamine Amount: 50 mg Route: I.V. Start: 9:10 AM Stop: 9:10 AM Medication: Versed Amount: 1 mg Route: I.V. Start: 9:12 AM Stop: 9:12 AM Medication: Fentanyl Amount: 25 mcg Route: I.V. Start: 9:35 AM Stop: 9:35 AM Medication: Heparin Amount: 8000 units Route: I.V. Start: 9:51 AM Stop: 9:51 AM Medication: Nitrogylcerin Amount: 200 mcg Route: I.C. Start: 9:57 AM Stop: 9:57 AM Medication: Plavix Amount: 300 mg Route: P.O. I, the attending physician, have reviewed and verified all procedure medications. Yes, all medications given per verbal order History/Risk Factors Hypertension: Yes Dyslipidemia: No Peripheral Arterial Disease (PAD): Yes Myocardial Infarction (ND): No Obesity: No Renal Disease: No Tobacco Use: Never Dialysis: Current Prior Interventions PCI: Yes CABG: No Valve Surgery: No Date of PCI: 05/19/2023 Report Signatures Finalized by Garrison Mckinney MD on 11/03/2023 02:45 PM
--- NOTE | 2023-10-29 08:30 | PC.PHAR ---
PT USES [facility] FOR MEDICATION SET UP. THEY ARE FAXING MED LIST 10/29/23 8:30AM
[2023-10-29] MEDS: carvedilol 6.25 mg Tablet PO ×2 (08:40→18:07)
[2023-10-29] MEDS: gabapentin 100 mg Capsule PO ×2 (08:40→18:19)
[2023-10-29] MEDS: BuSPIRONE 10 mg Tablet PO ×2 (08:40→18:07)
[2023-10-29] MEDS: aspirin 81 mg EC Tablet PO (08:40)
[2023-10-29] MEDS: bumetanide 1 mg Tablet 2 MG PO (08:40)
[2023-10-29] MEDS: pantoprazole DR 40 mg Tablet PO (08:41)
[2023-10-29] MEDS: clopidogrel 75 mg Tablet PO (08:41)
[2023-10-29] MEDS: sevelamer 800 mg Tablet PO ×2 (08:41→21:20)
[2023-10-29] MEDS: ranolazine (12HR) 500 mg Tablet PO ×2 (08:41→18:07)
[2023-10-29] MEDS: duloxetine 30 mg Capsule PO (08:41)
[2023-10-29] MEDS: diphenhydrAMINE 25 mg Capsule PO (08:41)
--- NOTE | 2023-10-29 08:50 | PC.NURSE ---
Called [facility] to see if they wanted Benadryl 25mg PO given prior to them getting patient. Oli RN from [facility] [employer] said that they would take care of that in the cathlab.
--- NOTE | 2023-10-29 09:36 | PC.PHAR ---
[facility] LIST HAS DISCREPANCIES. BUSPIRONE 5 MG TID SHOULD BE 10MG BID FILLED 10/16/23 30DS. CARVEDILOL LISTED 75MG DAILY (ERROR) SHOULD BE 6.25MG DAILY FILLED 10/17/23 30DS. CLOPIDOGREL 75MG FILLED 09/13/23 60DS-NOT ON THEIR MED LIST. LORAZEPAM 1 MG Q1RCGJL FILLED 10/24/23 30DS-NOT ON THEIR MED LIST. SPOKE WITH PHONE MANAGER WHO WILL RESPOND BACK, TO THE CHANGES. 10/29/23
--- NOTE | 2023-10-29 10:12 | P.PN_ITS ---
Subjective 2 Subjective: Patient going for coronary angiogram, No active chest pain After angiogram will go for hemodialysis Vitals/I&O/Wt Last Vital Signs Temp 98.4 F 10/28/23 23:52 Pulse 81 10/29/23 05:45 Resp 18 10/29/23 06:36 BP 132/87 10/29/23 05:45 Pulse Ox 96 10/29/23 05:45 O2 Del Method Room Air 10/28/23 22:17 Weight last 48 hrs Weight 108.153 kg Weight 108.153 kg Weight 100 kg Physical Exam 2 Narrative: Clinically patient does not look significantly fluid overloaded No active chest pain Currently hemodynamically stable On room air Nonfocal neuroexam GCS 15 Abdomen soft Data 10/29/23 03:54 10/29/23 03:54 A&P Assessment and plan (1) Chronic systolic heart failure: (2) Chest pain: (3) Chronic right SI joint pain: (4) ESRD (end stage renal disease): Plan Unstable angina Going for angiogram Patient's renal disease plan for dialysis after angiogram Patient has history of Port-A-Cath thrombosis plan for fistulogram in future, Eliquis has been on hold secondary to that History of pulm embolism for which she takes Eliquis 2.5 mg twice daily History of sluggish coronary disease he has stopped taking Eliquis and Plavix Full code Renal dialysis diet after Possible discharge tomorrow Attestations 2 Medical Necessity Statement*: Discharge tomorrow Diagnoses Chronic systolic heart failure I50.22 Chest pain R07.9 Chronic right SI joint pain M53.3; G89.29 ESRD (end stage renal disease) N18.6
--- NOTE | 2023-10-29 10:54 | P.CONIM_ITS ---
Providers/Reason For Consult 2 Consulting Physician/Specialty*: Kayleigh Montero DO, telenephrology Reason for Consult*: ESRD Attending Physician: Rosi Etienne MD Primary Care Provider: Kp Montanez DO History of Present Illness History of Present Illness Rei Queen II is a 53 year old male presented with unstable angina. Known CAD with stents. Had cardiac cath today. reports chest pain is better. Medications/Allergies Home Medications Medication Instructions Recorded Confirmed Last Taken Type levothyroxine 88 mcg tablet 88 mcg PO QAM 02/09/21 10/29/23 10/28/23 History apixaban 2.5 mg tablet (Eliquis) 2.5 mg PO BID 09/14/21 10/29/23 10/28/23 History insulin degludec 200 unit/mL (3 52 unit SUBCUT QAM 12/11/21 10/29/23 10/28/23 History mL) subcutaneous pen (Tresiba FlexTouch U-200 insulin) bumetanide 2 mg tablet 2 mg PO BID 08/16/22 10/29/23 10/28/23 History atorvastatin 40 mg tablet 40 mg PO QAM #90 tabs 10/25/22 10/29/23 10/28/23 Rx blood-glucose meter,continuous 02/27/23 10/29/23 03/15/23 History (Dexcom G7 Paint And Table Edger) diphenhydramine HCl 25 mg tablet 50 mg PO DAILY PRN Allergy Symptoms 05/02/23 10/29/23 Unknown History (Benadryl Allergy) insulin lispro 100 unit/mL See Rx Instructions .Route .COMPLEX 05/02/23 10/29/23 07/06/23 History subcutaneous pen (Humalog KwikPen (U-100) Insulin) blood-glucose sensor (Dexcom G7 #9 ea 05/14/23 10/29/23 Unknown Rx Sensor device) clopidogrel 75 mg tablet 75 mg PO DAILY 05/18/23 10/29/23 10/28/23 History gabapentin 100 mg capsule 100 mg PO BID 07/07/23 10/29/23 10/28/23 History AFO to left #1 ea 07/25/23 10/29/23 Unknown Rx Diabetic Shoes with Custom insoles #1 ea 07/25/23 10/29/23 Unknown Rx nitroglycerin 0.4 mg sublingual 0.4 mg sublingual Q5M PRN Chest 08/27/23 10/29/23 Unknown Rx tablet (Nitrostat) Pain #25 tabs carvedilol 6.25 mg tablet 6.25 mg PO BID 10/01/23 10/29/23 10/28/23 History hydrocortisone 2.5 % topical cream See Rx Instructions .Route .COMPLEX 10/01/23 10/29/23 Unknown History with perineal applicator (Procto-Med HC) isosorbide mononitrate 30 mg See Rx Instructions .Route 10/03/23 10/29/23 10/28/23 Rx tablet,extended release 24 hr .COMPLEX #30 tabs bupropion HCl 300 mg 24 hr tablet, 300 mg PO QAM #30 tabs 10/16/23 10/29/23 10/28/23 Rx extended release buspirone 10 mg tablet 10 mg PO BID #60 tabs 10/16/23 10/29/23 10/28/23 Rx aspirin 81 mg tablet,delayed 81 mg PO DAILY 10/24/23 10/29/23 10/28/23 History release fluoxetine 40 mg capsule 40 mg PO QAM 10/24/23 10/29/23 10/28/23 History lorazepam 1 mg tablet 1 mg PO Q8H PRN SEVER NAUSEA 10/24/23 10/29/23 Unknown History ranolazine 500 mg tablet,extended 500 mg PO BID 10/24/23 10/29/23 10/28/23 History release,12 hr trazodone 100 mg tablet 300 mg PO BEDTIME PRN insomnia 10/24/23 10/29/23 10/27/23 History dulaglutide 1.5 mg/0.5 mL 1.5 mg SUBCUT Q7D 10/29/23 10/29/23 Unknown History subcutaneous pen injector (Trulicity) vit B,C-folic ac 800 mcg-zinc 12.5 1 tab PO DAILY 10/29/23 10/29/23 10/28/23 History mg-selen-D3 2,000 unit-vit E tablet (RenaPlex-D) Allergies Allergy/AdvReac Type Severity Reaction Status Date / Time Iodinated Contrast Media Allergy Severe ALGY-Difficulty Verified 10/24/23 11:05 Breathing iodine Allergy Severe ALGY-Difficulty Verified 10/24/23 11:05 Breathing metoclopramide [From Reglan] Allergy Severe ALGY-Difficulty Verified 10/24/23 11:05 Breathing nalbuphine [From Nubain] Allergy Severe ADR-Diarrhe Verified 10/24/23 11:05 a naproxen [From Naprosyn] Allergy Severe ADR-Vomitin Verified 10/24/23 11:05 g Sulfa (Sulfonamide Allergy Severe ALGY-Difficulty Verified 10/24/23 11:05 Antibiotics) Breathing ketorolac Allergy Intermediate ADR-Nausea Verified 10/24/23 11:05 ondansetron [From Zofran] Allergy Intermediate ADR-Abdominal Verified 10/24/23 11:05 Pain prochlorperazine Allergy Intermediate ADR-Irritab Verified 10/24/23 11:05 [From Compazine] le codeine AdvReac Severe ALGY-Anaphy Verified 10/24/23 11:05 laxis haloperidol [From Haldol] AdvReac Intermediate ADR-Irritab Verified 10/24/23 11:05 le Current Medications Generic Name Dose Route Start Last Admin Trade Name Gilma PRN Reason Stop Dose Admin Aspirin 81 mg 10/29/23 09:00 10/29/23 08:40 Aspirin 81 Mg Ec Tablet PO 81 mg DAILY RANDY Administration Atorvastatin Calcium 40 mg 10/29/23 06:00 10/29/23 06:46 Atorvastatin 40 Mg Tablet PO 40 mg QAM RANDY Administration Bumetanide 2 mg 10/29/23 09:00 10/29/23 08:40 Bumetanide 1 Mg Tablet PO 2 mg DAILY RANDY Administration Bupropion HCl 300 mg 10/29/23 06:00 10/29/23 06:46 Bupropion Xl (24 Hr) 300 Mg Tablet PO 300 mg QAM RANDY Administration Buspirone HCl 10 mg 10/29/23 09:00 10/29/23 08:40 Buspirone 10 Mg Tablet PO 10 mg BID RANDY Administration Carvedilol 6.25 mg 10/29/23 09:00 10/29/23 08:40 Carvedilol 6.25 Mg Tablet PO 6.25 mg BID RANDY Administration Clopidogrel Bisulfate 75 mg 10/29/23 09:00 10/29/23 08:41 Clopidogrel 75 Mg Tablet PO 75 mg DAILY RANDY Administration Duloxetine HCl 30 mg 10/29/23 09:00 10/29/23 08:41 Duloxetine 30 Mg Capsule PO 30 mg DAILY RANDY Administration Gabapentin 100 mg 10/29/23 09:00 10/29/23 08:40 Gabapentin 100 Mg Capsule PO 100 mg BID RANDY Administration Insulin Human Lispro 0 unit 10/29/23 08:00 10/29/23 08:39 Insulin Lispro 100 Unit/1 Ml SUBCUT Not Given WM&BEDTIME [facility] Protocol Levothyroxine Sodium 88 mcg 10/29/23 06:00 10/29/23 06:46 Levothyroxine 88 Mcg Tablet PO 88 mcg QAM RANDY Administration Morphine Sulfate 2 mg 10/28/23 22:12 10/29/23 06:36 Morphine 4 Mg/Ml Sdv 1 Ml IVP 2 mg Q4H PRN Administration SEVERE PAIN Nitroglycerin 1 inch 10/28/23 22:12 10/29/23 10:08 Nitroglycerin 1 Gm/Inch Oint Pkt TOPICAL Not Given Q6H RANDY Pantoprazole Sodium 40 mg 10/29/23 09:00 10/29/23 08:[address] 40 Mg Tablet PO 40 mg DAILY RANDY Administration Ranolazine 500 mg 10/29/23 09:00 10/29/23 08:41 Ranolazine (12hr) 500 Mg Tablet PO 500 mg BID RANDY Administration Sevelamer Carbonate 800 mg 10/29/23 09:00 10/29/23 08:41 Sevelamer 800 Mg Tablet PO 800 mg TID RANDY Administration PFSH Acute 2 PFSH: Medical History Chronic systolic heart failure UTI (urinary tract infection) Peripheral arterial disease PVD (peripheral vascular disease) Worsening angina Elevated troponin 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 mellitus Hypertension Angina at rest Chest pain ESRD (end stage renal disease) Uremic encephalopathy Generalized anxiety disorder ESRD (end stage renal disease) D-dimer, elevated Acute on chronic congestive heart failure History of pulmonary embolism Diabetes Acute kidney injury superimposed on CKD GERD (gastroesophageal reflux disease) Alcohol use disorder, moderate, in sustained remission Major depressive disorder, recurrent severe without psychotic features DVT (deep venous thrombosis) (~03/2020) Proximal left subclavian, basilic and brachial veins, started eliquis this stay, felt present prior to admission Chronic kidney disease -baseline Cr appears to be around 1.5 Atherosclerotic heart disease of [place] coronary artery with other forms of angina pectoris hx of CAD with prior stenting of proximal LAD, LCx, RCA Ischemic cardiomyopathy Onychodystrophy Chronic anticoagulation Eliquis Osteoarthritis of spine Hypothyroidism Hypertension Hyperlipidemia Diabetes Depression Anemia Foot drop, left H/O acute myocardial infarction H/O deep venous thrombosis developed compartment syndrome Surgical History Peritoneal dialysis catheter in situ (06/15/21) History of appendectomy 1995 History of excision of mass 06/08/2019: Subcutaneous mass on back History of removal of Port-a-Cath Port-A-Cath in place H/O vasectomy Hx of cholecystectomy History of coronary artery stent placement 5x H/O skin graft History of inguinal hernia repair, bilateral 2000 H/O removal of testicle left H/O colonoscopy (11/14/20) 08/2015 H/O esophagogastroduodenoscopy (11/14/20) 08/2015 Family History Grandfather Cancer skin cancer Parkinson disease Brother Hypertension Father Heart disease Mother Hypertension Stroke Aneurysm Grandmother Aneurysm Other Crohn's disease Denies family history of Anesthesia complication Bleeding disorder Social History Smoking and tobacco/nicotine status: never used tobacco/nicotine Second hand smoke exposure: No Alcohol intake: former Year of sobriety/quit date alcohol: 2015 Former alcohol use details: Only holidays Substance/Drug Use: never Lives independently: Yes Household members: significant other Marital status: Single Current occupational status: disabled Vitals/I&O/Wt Last Vital Signs Temp 98.4 F 10/28/23 23:52 Pulse 89 10/29/23 10:30 Resp 15 10/29/23 10:30 BP 148/67 10/29/23 10:30 Pulse Ox 91 10/29/23 10:30 O2 Del Method Room Air 10/29/23 10:30 Weight last 48 hrs Weight 108.153 kg Weight 108.153 kg Weight 100 kg Physical Exam 2 Const: COMMON NORMALS: no acute distress and alert Extremity: OTHER: LUE AVG + thrill per RN Neuro: SENSORIUM/ORIENTATION: Yes alert Data 10/29/23 03:54 10/29/23 03:54 Other data: seen via telemedicine with assistance of RN at bedside A&P Assessment and plan (1) ESRD (end stage renal disease): Plan 1. ESRD HD T//S 2. Unstable angina s/p cardiac cath 3. DM 4. Hypertension 5. Anemia Recommend: HD today. 4h, 2L UF, heparin free. No IVs, BPs, blood draws left arm Consult Attestations 2 Medical Necessity Statement: per primary service Time Spent in Patient Care: 16 - 35 minutes Coding Level of Care Code Acute Code for g Fwd Diagnoses ESRD (end stage renal disease) N18.6
[2023-10-29 11:45] LABS: Glucose Point of Care 138 mg/dL (70-110)
--- NOTE | 2023-10-29 12:30 | W.PM.OPSUD ---
Surgery/Procedure H&P Update DATE OF PROCEDURE: October 29, 2023 DATE H&P PERFORMED: 10/29/23 H&P UPDATE INFORMATION: I have reviewed H&P completed within last 30 days, I have examined patient prior to procedure and No changes to prior documentation PREOP DIAGNOSIS: Worsening angina PRIMARY INDICATION FOR PROCEDURE: Worsening angina PLANNED PROCEDURE: Operation Date: 10/29/23 10:10 Proposed Procedures Left heart cath with possible Percutaneous Coronary Intervention(Not Applicable) - Garrison Mckinney M.D PATIENT REASSESSED PRIOR TO SEDATION, WITH NO CHANGE NOTED: Yes PHYSICAL EXAM: alert, oriented x 3, clear to auscultation bilaterally and regular rate & rhythm AIRWAY EVAL/ANESTHESIA PLAN: normal airway, ASA III, Local Anesthesia, Risks, benefits & alternatives of sedation and/or procedure discussed and Patient agrees to continue as planned ADDITIONAL INFORMATION: Moderate sedation
--- NOTE | 2023-10-29 13:04 | PC.NURSE ---
Patient arrived from hospital laboratory technician at 10:47 with right groin sheath sutured in. Site is clean dry and intact, no hematoma. Vital signs all stable. Patient and educated on activity restriction. Shortly after patients arrival dialysis nurse came to get him for dialysis. Ptt was placed for 12:00 and has still not been collected. Lab has been notified and physician as well. Nurse will follow up regarding this.
--- NOTE | 2023-10-29 13:16 | PC.NURSE ---
2 mg of morphine given to patient in dialysis. Patient is complaining of chest pain at a 2 and right groin pain. Sheath is still intact and clean dry. 2mg morphine wasted with DARRELL sierra
[2023-10-29 14:58] LABS: Hepatitis B Surface Antigen Non-Reactive (Nonreactive)
--- NOTE | 2023-10-29 15:01 | PC.NURSE ---
This nurse notified by [facility] dialysis nurse of patients blood pressure 189/77. Physician notified, no new orders were given.
[2023-10-29] MEDS: insulin lispro 100 unit/1 mL SUBCUT ×2 (18:06→21:20)
--- NOTE | 2023-10-29 18:47 | PC.NURSE ---
Sheath removed per protocol when patient arrived back to floor from dialysis. Patient notified nurse as she was pulling the sheath out that he hit it with a soda can during dialysis . After removal sheath was bent and had rough edges. Physician was notified, pressure was held x30min. Dressing applied, no hematoma or oozing. patient is aware of activity restrictions.
--- NOTE | 2023-10-29 21:32 | PC.NURSE ---
patient blood glucose was 182 per patient personal Hey, Neighbor! 7.
[2023-10-30] VITALS (9 sets, daily range): BP systolic 134–156; BP diastolic 44–80; PULSE 70–87; RESP 14–23; TEMP 36.6–37.1; O2SAT 92–95; BMI 38.3
[2023-10-30] MEDS: tizanidine 4 mg Tablet 2 MG PO (00:42)
[2023-10-30 03:52] LABS: Basophils % 0.1 %; Hematocrit 33.2 % (37-53); Lymphocytes # 1.3 10^3/uL (0.8-4.8); Lymphocytes % 13.9 %; Mean Corpuscular HGB Conc 33.7 g/dL (30-55); Mean Corpuscular Hemoglobin 33.6 pg (27-33); Mean Corpuscular Volume 99.7 fl (82-101); Mean Platelet Volume 9.5 fL (7.4-10.4); Monocytes # 0.8 10^3/uL (0.2-0.9); Monocytes % 8.5 %; Neutrophils # 7.12 10^3/uL (1.8-7.7); Neutrophils % 76.9 %; Nucleated Red Blood Cells % 0 %; Platelet Count 272 10^3/cmm (157-399); Red Blood Count 3.33 10^6/uL (3.85-5.65); Red Cell Distribution Width 13.7 % (12.1-15.1); White Blood Count 9.27 10^3/uL (3.29-11.43)
[2023-10-30 04:13] LABS: Anion Gap 17.8 (5-19); Blood Urea Nitrogen 27 mg/dL (6-20); Calcium 9.1 mg/dL (8.5-10.5); Carbon Dioxide 30 mmol/L (22-29); Chloride 96 mmol/L (98-107); Creatinine Clr Calc Pharmacy 34.9532; Glomerular Filtration Rate 24.7 mL/min (90-130); Glucose 138 mg/dL (65-115); Osmolality Calculated 297 mOsm/kg (285-295); Potassium 3.8 mmol/L (3.5-5.1); Sodium 140 mmol/L (136-145)
[2023-10-30] MEDS: levothyroxine 88 mcg Tablet PO (05:11)
[2023-10-30] MEDS: morphine 4 mg/mL SDV 1 mL 2 MG IVP ×2 (05:11→10:50)
[2023-10-30] MEDS: atorvastatin 40 mg Tablet PO (05:11)
[2023-10-30] MEDS: buPROPion XL (24 HR) 300 mg Tablet PO (05:11)
--- NOTE | 2023-10-30 06:09 | PC.NURSE ---
patient blood glucose 222 per patient personal dexcom glucometer.
--- NOTE | 2023-10-30 07:50 | P.PN_ITS ---
Subjective 2 Subjective: Patient is doing well overall. No chest pain. Vitals/I&O/Wt Last Vital Signs Temp 98.3 F 10/30/23 04:13 Pulse 74 10/30/23 05:41 Resp 21 H 10/30/23 05:11 BP 145/52 10/30/23 04:13 Pulse Ox 95 10/30/23 05:11 O2 Del Method Room Air 10/29/23 10:30 10/29/23 10/30/23 10/30/23 22:59 06:59 14:59 Intake Total 540 / 540 480 / 1020 Output Total 3350 / 3600 300 / 3900 Balance -2810 / -3060 180 / -2880 Weight last 48 hrs Weight 230 lb 6 oz Weight 237 lb 3.478 oz Weight 238 lb 7 oz Weight 238 lb 7 oz Weight 220 lb 7.396 oz Physical Exam 2 Narrative: GENERAL: Patient is alert, awake and oriented x3. [] NECK: No jugular vein distension. [] HEENT: No cyanosis. No icterus. No pallor. [] HEART: Regular S1 and S2. No murmur, rub or gallop. [] LUNGS: Clear to auscultate bilaterally. [] CENTRAL NERVOUS SYSTEM: Grossly nonfocal. [] EXTREMITIES: Lower extremities with 1+ edema bilaterally. Data 10/30/23 03:22 10/30/23 03:22 A&P Assessment and plan (1) Chest pain: (2) ESRD (end stage renal disease): Plan Patient underwent successful revascularization of PDA with 1 stent. Continue Eliquis and Plavix. Patient is stable to be discharged from cardiology standpoint. Please call with questions. Attestations 2 Medical Necessity Statement*: Care expected to cross 2 midnights. Coding Level of Care Code Acute Code for [facility] Diagnoses Chest pain R07.9 ESRD (end stage renal disease) N18.6
[2023-10-30] MEDS: insulin lispro 100 unit/1 mL SUBCUT (08:11)
[2023-10-30] MEDS: carvedilol 6.25 mg Tablet PO (08:11)
[2023-10-30] MEDS: aspirin 81 mg EC Tablet PO (08:12)
[2023-10-30] MEDS: clopidogrel 75 mg Tablet PO (08:12)
[2023-10-30] MEDS: sevelamer 800 mg Tablet PO (08:12)
[2023-10-30] MEDS: duloxetine 30 mg Capsule PO (08:12)
[2023-10-30] MEDS: pantoprazole DR 40 mg Tablet PO (08:12)
[2023-10-30] MEDS: ranolazine (12HR) 500 mg Tablet PO (08:12)
[2023-10-30] MEDS: bumetanide 1 mg Tablet 2 MG PO (08:12)
[2023-10-30] MEDS: gabapentin 100 mg Capsule PO (08:12)
[2023-10-30] MEDS: BuSPIRONE 10 mg Tablet PO (08:13)
--- NOTE | 2023-10-30 10:25 | PM.DCS ---
Discharge Providers Date of Admission: 10/28/23 19:21 Date of Discharge: October 30, 2023 Attending Provider at Admission: Rafiq Mariee MD Attending Provider at Discharge: Rosi Etienne MD Primary Care Provider: Kp Montanez DO Diagnoses at Discharge Discharge Diagnosis (1) Chest pain: Status: Acute (2) ESRD (end stage renal disease): Status: Acute Reason for Visit Reason for Visit: cp Hospital Course Hospital Course 53-year male who present to the hospital with unstable angina, patient recently had a stress test done which showed changes related to scar tissue, medical therapy was pursued on last admission, on this admission Dr. Frank decided to proceed with coronary angiogram, status post PCI to PDA. Patient symptoms improved, patient will be dialyzed on . We are planning to discharge the patient with stable hemodynamics he may resume his antiplatelet therapy along Eliquis. He is already taking atorvastatin, Coreg, Imdur. Physical Exam Narrative: No active chest pain Euvolemic Currently on room air Pleasant cough Nonfocal neuroexam Discharge Data Studies Completed and Pending Completed Studies During Hospitalization Category Date Time Status XR chest 1V portable [id number] Urgent Exams 10/28/23 14:43 Completed Pending at discharge Category Date Time Status NURSE RECEPTIONIST request for service Routine Exams 10/29/23 08:20 Taken Radiology Impressions Chest X-Ray 10/28/23 14:43 IMPRESSION: No acute findings. Laboratory Results WBC 9.27 10^3/uL (3.29-11.43) 10/30/23 03:22 RBC 3.33 10^6/uL (3.85-5.65) L 10/30/23 03:22 Hgb 11.20 g/dL (11.27-16.99) L 10/30/23 03:22 Hct 33.2 % (37-53) L 10/30/23 03:22 MCV 99.7 fl (82-101) 10/30/23 03:22 MCH 33.6 pg (27-33) H 10/30/23 03:22 MCHC 33.7 g/dL (30-55) 10/30/23 03:22 RDW 13.7 % (12.1-15.1) 10/30/23 03:22 Plt Count 272 10^3/cmm (157-399) 10/30/23 03:22 MPV 9.5 fL (7.4-10.4) 10/30/23 03:22 Neut % (Auto) 76.9 % 10/30/23 03:22 Lymph % (Auto) 13.9 % 10/30/23 03:22 Wilcox % (Auto) 8.5 % 10/30/23 03:22 Eos % (Auto) 0.0 % 10/30/23 03:22 Baso % (Auto) 0.1 % 10/30/23 03:22 Neut # (Auto) 7.12 10^3/uL (1.8-7.7) 10/30/23 03:22 Lymph # (Auto) 1.3 10^3/uL (0.8-4.8) 10/30/23 03:22 Wilcox # (Auto) 0.8 10^3/uL (0.2-0.9) 10/30/23 03:22 Eos # (Auto) 0.0 10^3/uL (0.0-0.8) 10/30/23 03:22 Baso # (Auto) 0.0 10^3/uL (0.0-0.1) 10/30/23 03:22 Nucleated RBC % (auto) 0 % 10/30/23 03:22 Nucleated RBCs # 0.0 /100WBC 10/30/23 03:22 APTT 69.0 SECONDS (23.9-36.7) H 10/29/23 13:00 Sodium 140 mmol/L (136-145) 10/30/23 03:22 Potassium 3.8 mmol/L (3.5-5.1) 10/30/23 03:22 Chloride 96 mmol/L (98-107) L 10/30/23 03:22 Carbon Dioxide 30 mmol/L (22-29) H 10/30/23 03:22 Anion Gap 17.8 (5-19) 10/30/23 03:22 BUN 27 mg/dL (6-20) H 10/30/23 03:22 Creatinine 2.7 mg/dL (0.7-1.2) H 10/30/23 03:22 GFR Calculation 24.7 mL/min (90-130) L 10/30/23 03:22 Glucose 138 mg/dL (65-115) H 10/30/23 03:22 POC Glucose 138 mg/dL (70-110) H 10/29/23 11:21 Calculated Osmolality 297 mOsm/kg (285-295) H 10/30/23 03:22 Calcium 9.1 mg/dL (8.5-10.5) 10/30/23 03:22 Total Bilirubin 0.5 mg/dL (0.15-1.2) 10/29/23 03:54 AST 10 U/L (0-40) 10/29/23 03:54 ALT 9 U/L (0-41) 10/29/23 03:54 Alkaline Phosphatase 77 U/L (40-130) 10/29/23 03:54 Troponin T Baseline 60 ng/L (0-15) H 10/28/23 16:10 Troponin T 120 Minute 61.90 ng/L (0-15) H 10/28/23 18:16 Delta Troponin T 1.90 ABS# (0-10) 10/28/23 18:16 Troponin T Hi Sens 6Hr 63.74 ng/L (0-15) H 10/28/23 20:57 Troponin T Hi Sens 6Hr Delta 3.74 ng/L (0-12) 10/28/23 20:57 NT-Pro-B Natriuret Pep 4369 pg/mL (0-125) H 10/28/23 16:10 Total Protein 6.2 g/dL (6.6-8.7) L 10/29/23 03:54 Albumin 3.6 g/dL (3.5-5.2) 10/29/23 03:54 Globulin 2.6 g/dL (1.3-4.6) 10/29/23 03:54 Hep Bs Antigen Non-reactive (Nonreactive) 10/29/23 13:00 Vitals Last Vital Signs Temp 97.9 F 10/30/23 07:51 Pulse 72 10/30/23 07:51 Resp 23 H 10/30/23 07:51 BP 134/66 10/30/23 07:51 Pulse Ox 94 10/30/23 07:51 O2 Del Method Room Air 10/30/23 07:51 Discharge Plan Discharge Patient Disposition: Home Condition: Stable Prescriptions: Continued (DME) Dexcom G7 Sensor Device See Rx Instructions .ROUTE .COMPLEX Qty: 9 1RF Dose Instruction: CHANGE every 10 DAYS Rx Instructions: CHANGE every 10 DAYS (DME) Diabetic Shoes with Custom insoles See Rx Instructions .Route .MEDSUPPLY Qty: 1 0RF Rx Instructions: As directed (DME) AFO to left See Rx Instructions .Route .MEDSUPPLY Qty: 1 0RF Rx Instructions: As directed by [facility] bupropion HCl 300 mg tablet extended release 24 hr 300 mg PO QAM Qty: 30 2RF buspirone 10 mg tablet 10 mg PO BID Qty: 60 2RF atorvastatin 40 mg tablet 40 mg PO QAM Qty: 90 2RF nitroglycerin [Nitrostat] 0.4 mg tablet, sublingual 0.4 mg SUBLINGUAL Q5M PRN (Reason: Chest Pain) Qty: 25 2RF Rx Instructions: do not exceed 3 doses per episode levothyroxine 88 mcg tablet 88 mcg PO QAM Tresiba FlexTouch U-200 200 unit/mL (3 mL) insulin pen 52 unit SUBCUT QAM gabapentin 100 mg capsule 100 mg PO BID carvedilol 6.25 mg tablet 6.25 mg PO BID hydrocortisone [Procto-Med HC] 2.5 % cream with perineal applicator See Rx Instructions .ROUTE .COMPLEX Rx Instructions: APPLY THIN LAYER TO AFFECTED AREA TWO TO FOUR TIMES A DAY. isosorbide mononitrate 30 mg tablet extended release 24 hr See Rx Instructions .ROUTE .COMPLEX Qty: 30 1RF Rx Instructions: Take 30 mg daily, do not take on dialysis days lorazepam 1 mg Tablet 1 mg PO Q8H PRN (Reason: SEVER NAUSEA) ranolazine 500 mg tablet extended release 12 hr 500 mg PO BID fluoxetine 40 mg capsule 40 mg PO QAM trazodone 100 mg tablet 300 mg PO BEDTIME PRN (Reason: insomnia) bumetanide 2 mg tablet 2 mg PO BID (DME) Dexcom G7 Human Resources Coordinator Misc MISCELLANEOUS diphenhydramine HCl [Benadryl Allergy] 25 mg Tablet 50 mg PO DAILY PRN (Reason: Allergy Symptoms) insulin lispro [Humalog KwikPen Insulin] 100 unit/mL insulin pen See Rx Instructions .ROUTE .COMPLEX Rx Instructions: Sliding scale subcutaneously twice a day as needed. Trulicity 1.5 mg/0.5 mL pen injector 1.5 mg SUBCUT Q7D RenaPlex-D 800 mcg-12.5 mg -2,000 unit tablet 1 tab PO DAILY aspirin 81 mg Tablet,Delayed Release (Dr/Ec) 81 mg PO DAILY Qty: 90 3RF Eliquis 2.5 mg tablet 2.5 mg PO BID Qty: 60 2RF clopidogrel 75 mg tablet 75 mg PO DAILY Qty: 90 4RF Discharge Orders: Discharge Order (Routine); Ordered 10/30/23 Ordered By: Rosi Etienne Referrals: Amalia Mccain FNP [Nurse Practitioner] - 11/26/23 2:30 pm Kp Montanez DO [Primary Care Provider] - 11/13/23 11:30 am Discharge Diet: Cardiac and Diabetic Discharge Activity: Increase activity as tolerated Patient Instructions: Coronary Angioplasty (DC), Dialysis Diet (DC), Hemodialysis (DC), Chest Pain Stoplight, Opioid Safety, Post Angiogram Home Care Instructions Discharge Attestations Time Spent in Discharge Care*: greater than 30 min Status at Discharge: Cognitive status at discharge: cognitively intact, Behavioral status at discharge: cooperative and independent in ADL's, Quality Metrics Clinical Quality Measures [ No reported AMI, CVA or VTE this stay] Coding Level of Care Code Acute Code for Chg Fwd Diagnoses Chest pain R07.9 ESRD (end stage renal disease) N18.6
--- NOTE | 2023-10-30 11:30 | PC.NURSE ---
Discharge Note Patient discharged to home via ready transport accompanied by public transit bus driver. Discharge instructions reviewed with patient and/or service center representative. Mobile pharmacy medications and/or prescriptions provided. Belongings/home medications returned.
== END 2023-10-30 11:30 | disposition home or self-care (01) ==
LOC: ER 19:32 → CSU 20:36
PROVIDERS: Internal Medicine; Physician Assistant; Student in an Organized Health Care Education/Training Program; Admitting Provider Student in an Organized Health Care Education/Training Program; Emergency Provider Family Medicine; PCP Internal Medicine; Visit Provider Internal Medicine
DX: R07.9 Chest pain, unspecified (principal); E11.22 Type 2 diabetes mellitus with diabetic chronic kidney disease; N18.6 End stage renal disease; I50.22 Chronic systolic (congestive) heart failure; I13.0 Hypertensive heart and chronic kidney disease with heart failure and stage 1 through stage 4 chronic kidney disease, or unspecified chronic kidney disease; Z79.82 Long term (current) use of aspirin; E11.42 Type 2 diabetes mellitus with diabetic polyneuropathy; Z86.711 Personal history of pulmonary embolism; Z86.718 Personal history of other venous thrombosis and embolism; E03.9 Hypothyroidism, unspecified; E78.5 Hyperlipidemia, unspecified; Z79.01 Long term (current) use of anticoagulants; Z95.5 Presence of coronary angioplasty implant and graft; Z79.4 Long term (current) use of insulin; I25.10 Atherosclerotic heart disease of native coronary artery without angina pectoris
CPT/HCPCS: 36415; 36416; 36591; 71045; 80048; 80053; 82962; 83880; 84484; 85025; 85347; 85730; 87340; 90935; 92978; 93005; 93454; 96372; 96374; 96375; 99152; 99153; 99285; C1725; C1753; C1769; C1874; C1887; C1894; C9600; G0378; J1200; J1642; J1644; J1815; J2250; J2270; J2919; J3010; J3490; J7030; Q9967

== ENCOUNTER 2023-11-18 09:31 | Oncology outpatient (recurring) (ONCR) | payer MEDICARE, SELFPAY | END 2023-12-18 23:59 | disposition home or self-care (01) | PROVIDERS: PCP Internal Medicine; Visit Provider Internal Medicine | DX: Z45.2 Encounter for adjustment and management of vascular access device (principal) ==

== ENCOUNTER 2023-11-27 15:45 | Emergency (ER) | payer MEDICARE, SELFPAY ==
[2023-11-27 15:50] VITALS: BP 152/74; PULSE 77; TEMP 36.8; O2SAT 94
--- NOTE | 2023-11-27 16:13 | CTR_ITS ---
PROCEDURE INFORMATION: Exam: CT Lumbar Spine Without Contrast Exam date and time: 11/27/2023 5:00 PM Age: 53 years old Clinical indication: Injury or trauma; Fall; Blunt trauma (contusions or hematomas) TECHNIQUE: Imaging protocol: Computed tomography of the lumbar spine without contrast. COMPARISON: CT lumbar spine wo con* [id number] 11/30/2017 4:35 PM RADIATION DOSE METRICS: Total DLP (mGy-cm): 1223.37 FINDINGS: Bones/joints: Minimal reverse listhesis of L4 on L5 unchanged compared with 2018. No acute fracture or dislocation. Lumbar vertebral body and intervertebral disc heights are intact. Mild degenerative disc narrowing at T12-L1. Mild degenerative changes of the facet joints. No acute fracture or dislocation. Sacroiliac joints unremarkable. Unchanged focal sclerotic lesion in the right iliac bone on series 3, image 98 most likely representing benign pathology such as fibrous dysplasia also unchanged compared with the prior exam. Adrenal glands: Bilateral adrenal adenomas noted on prior studies including CT abdomen pelvis 05/23/2022 again seen measuring 2.5 x 1.8 cm the right and 2.7 x 1.5 cm on the left. Soft tissues: Unremarkable. CT/CT lumbar spine wo con* [id number] IMPRESSION: 1. No acute traumatic pathology or significant interval change in minor abnormalities of the lumbar spine. 2. Bilateral adrenal adenomas again noted.
--- NOTE | 2023-11-27 16:13 | CTR_ITS ---
PROCEDURE INFORMATION: Exam: CT Cervical Spine Without Contrast Exam date and time: 11/27/2023 4:56 PM Age: 53 years old Clinical indication: Injury or trauma; Fall; Concussion/head injury; Additional info: Neck pain TECHNIQUE: Imaging protocol: Computed tomography of the cervical spine without contrast. Radiation optimization: All CT scans at this facility use at least one of these dose optimization techniques: automated exposure control; mA and/or kV adjustment per patient size (includes targeted exams where dose is matched to clinical indication); or iterative reconstruction. COMPARISON: CT cervical spin wo con* [id number] 04/12/2021 3:52 PM RADIATION DOSE METRICS: Total DLP (mGy-cm): 299.8 FINDINGS: Tubes, catheters and devices: Left central line. Bones: The vertebral body alignment and stature is intact. Severe disc space narrowing with anterior and posterior endplate spurring at C5-C6. Mild central canal stenosis at C5-C6. The facets are intact with minimal degenerative changes. Mild left bony foraminal stenosis at C5-C6. Lungs: Left upper lobe calcified granuloma. Mild air trapping with mosaic attenuation. Soft tissues: Unremarkable. Vascular: Bilateral carotid bulb calcifications. CT/CT cervical spin wo con* [id number] IMPRESSION: 1. No acute findings. 2. Degenerative changes at C5-C6.
--- NOTE | 2023-11-27 16:17 | CTR_ITS ---
PROCEDURE INFORMATION: Exam: CT Head Without Contrast Exam date and time: 11/27/2023 4:56 PM Age: 53 years old Clinical indication: Injury or trauma; Fall; Concussion/head injury; Consciousness not specified TECHNIQUE: Imaging protocol: Computed tomography of the head without contrast. Radiation optimization: All CT scans at this facility use at least one of these dose optimization techniques: automated exposure control; mA and/or kV adjustment per patient size (includes targeted exams where dose is matched to clinical indication); or iterative reconstruction. COMPARISON: CT head wo con* [id number] 07/07/2023 2:07 PM RADIATION DOSE METRICS: Total DLP (mGy-cm): 1235.4 FINDINGS: Brain: Mild cortical volume loss. Mild hypodensities in supratentorial periventricular and subcortical white matter, consistent with microangiopathy. No intracranial hemorrhage. Cerebral ventricles: No ventriculomegaly. Paranasal sinuses: Visualized sinuses are unremarkable. No fluid levels. Mastoid air cells: Visualized mastoid air cells are well aerated. Bones: Unremarkable. No acute fracture. Soft tissues: Contusion in the superior midline parietal scalp. Vasculature: No hyperdense artery. CT/CT head wo con* [id number] IMPRESSION: 1. No fracture or intracranial hemorrhage. 2. Parietal scalp contusion.
--- NOTE | 2023-11-27 16:34 | ED_ITS ---
HPI - Fall General: Chief Complaint: Fall Stated Complaint: fall Time Seen by Provider: 11/27/23 16:00 Source: patient Mode of arrival: ambulatory History of Present Illness: 53-year-old male presents to the emergen cy room after a fall at home he was standing and felt like his knee gave out and went down he hit his head hurt his neck and his low back. He is unsure if he lost consciousness. Patient has a history of end-stage renal disease he gets dialysis on Tuesdays and Saturdays he did get his regular dialysis yesterday. MD complaint: fall Onset (ago): minute(s) Fall from: standing Fall witnessed: yes, by family Place fall occurred: home Loss of consciousness: Unsure Location of injury: head, neck and back Associated symptoms-after fall: Reports neck pain; Denies abdominal pain, chest pain, confusion, difficulty walking, headache(s), hematuria, lightheadedness, numbness, short of breath, vertigo or weakness Review of Systems Const: Denies: fever(s) or chills Card: Denies: chest pain or lightheadedness Resp: Denies: dyspnea GI: Denies: abdominal pain : Denies: dysuria, urinary frequency, urinary urgency or hematuria Musc: Reports: neck pain and back pain Skin/Breast: Denies: rash Neuro: Denies: headache(s), difficulty walking, vertigo or confusion PFSH ED PFSH: Medical History ESRD (end stage renal disease) Chronic renal failure Chest pain Chest pain CRF (chronic renal failure) Chronic right SI joint pain Chronic systolic heart failure UTI (urinary tract infection) Peripheral arterial disease PVD (peripheral vascular disease) Worsening angina Elevated troponin 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 mellitus Hypertension Angina at rest Chest pain ESRD (end stage renal disease) Uremic encephalopathy Generalized anxiety disorder ESRD (end stage renal disease) D-dimer, elevated Acute on chronic congestive heart failure History of pulmonary embolism Diabetes Acute kidney injury superimposed on CKD GERD (gastroesophageal reflux disease) Alcohol use disorder, moderate, in sustained remission Major depressive disorder, recurrent severe without psychotic features DVT (deep venous thrombosis) (~03/2020) Proximal left subclavian, basilic and brachial veins, started eliquis this stay, felt present prior to admission Chronic kidney disease -baseline Cr appears to be around 1.5 Atherosclerotic heart disease of [place] coronary artery with other forms of angina pectoris hx of CAD with prior stenting of proximal LAD, LCx, RCA Ischemic cardiomyopathy Onychodystrophy Chronic anticoagulation Eliquis Osteoarthritis of spine Hypothyroidism Hypertension Hyperlipidemia Diabetes Depression Anemia Foot drop, left H/O acute myocardial infarction H/O deep venous thrombosis developed compartment syndrome Surgical History Peritoneal dialysis catheter in situ (06/15/21) History of appendectomy 1995 History of excision of mass 06/08/2019: Subcutaneous mass on back History of removal of Port-a-Cath Port-A-Cath in place H/O vasectomy Hx of cholecystectomy History of coronary artery stent placement 5x H/O skin graft History of inguinal hernia repair, bilateral 2000 H/O removal of testicle left H/O colonoscopy (11/14/20) 08/2015 H/O esophagogastroduodenoscopy (11/14/20) 08/2015 Family History Grandfather Cancer skin cancer Parkinson disease Brother Hypertension Father Heart disease Mother Hypertension Stroke Aneurysm Grandmother Aneurysm Other Crohn's disease Denies family history of Anesthesia complication Bleeding disorder Social History Smoking and tobacco/nicotine status: never used tobacco/nicotine Second hand smoke exposure: No Alcohol intake: former Year of sobriety/quit date alcohol: 2015 Former alcohol use details: Only holidays Substance/Drug Use: never Lives independently: Yes Household members: significant other Marital status: Single Current occupational status: disabled Physical Exam Const: GENERAL APPEARANCE: cooperative and comfortable ORIENTATION/CONSCIOUSNESS: Yes awake, Yes oriented to person, Yes oriented to place and Yes oriented to time HENMT: COMMON NORMALS: normocephalic, atraumatic and hearing grossly normal bilaterally HEAD & SCALP: normocephalic and atraumatic Resp: COMMON NORMALS: normal respiratory effort, No retractions, No use of accessory muscles and clear to auscultation bilaterally AUSCULTATION: clear to auscultation bilaterally Cardio: COMMON NORMALS: regular rate, regular rhythm and No murmurs present (Cardio) RATE: regular rate RHYTHM: regular rhythm GI: COMMON NORMALS: Soft to palpation and No hepatosplenomegaly present AUSCULTATION: Yes normoactive bowel sounds PALPATION: Yes Soft to palpation, No Tenderness to palpation present (GI), No Guarding due to palpation present (GI) and Yes No hepatosplenomegaly present Extremity: COMMON NORMALS: normal to inspection, capillary refill normal, no clubbing, cyanosis or edema, no calf tenderness and no pedal edema Neuro: SENSORIUM/ORIENTATION: Yes oriented to person, Yes oriented to place and Yes oriented to time Skin: COMMON NORMALS: no rashes or lesions noted GENERAL SKIN EXAM: no rashes or lesions noted Course Vital Signs: Vital signs: Vital Signs Temperature 98.3 F 11/27/23 15:50 Pulse Rate 74 11/27/23 18:27 Blood Pressure 128/75 11/27/23 18:27 Pulse Oximetry 98 11/27/23 18:27 Oxygen Delivery Me thod Room Air 11/27/23 15:50 MDM - Fall Medical Decision Making Reviewed no fractures. No intracranial bleeding patient does have a scalp hematoma but no laceration. He is able to stand and ambulate. He is due for dialysis tomorrow. No other complaints this time clinically does not appear to be fluid overloaded. Follow-up with his dialysis tomorrow as planned. Medical Records I reviewed the patient's medical records. Lab Data Radiology Impressions Cervical Spine CT 11/27/23 16:13 IMPRESSION: 1. No acute findings. 2. Degenerative changes at C5-C6. Lumbar Spine CT 11/27/23 16:13 IMPRESSION: 1. No acute traumatic pathology or significant interval change in minor abnormalities of the lumbar spine. 2. Bilateral adrenal adenomas again noted. Head CT 11/27/23 16:17 IMPRESSION: 1. No fracture or intracranial hemorrhage. 2. Parietal scalp contusion. All radiology interpretation(s) finalized by discharge Discharge Plan Discharge Patient Disposition: Home Clinical Impression: Fall, ESRD on dialysis Condition: Stable Prescriptions: No Action (DME) Diabetic Shoes with Custom insoles See Rx Instructions .Route .MEDSUPPLY Qty: 1 0RF Rx Instructions: As directed (DME) AFO to left See Rx Instructions .Route .MEDSUPPLY Qty: 1 0RF Rx Instructions: As directed by [facility] bupropion HCl 300 mg tablet extended release 24 hr 300 mg PO QAM Qty: 30 2RF buspirone 10 mg tablet 10 mg PO BID Qty: 60 2RF atorvastatin 40 mg tablet 40 mg PO QAM Qty: 90 2RF nitroglycerin [Nitrostat] 0.4 mg tablet, sublingual 0.4 mg SUBLINGUAL Q5M PRN (Reason: Chest Pain) Qty: 25 2RF Rx Instructions: do not exceed 3 doses per episode Mounjaro 12.5 mg/0.5 mL pen injector 12.5 mg SUBCUT Q7D Qty: 2 0RF (DME) Dexcom G7 Sensor Device See Rx Instructions .ROUTE .COMPLEX Qty: 9 1RF Dose Instruction: CHANGE every 10 DAYS Rx Instructions: CHANGE every 10 DAYS levothyroxine 88 mcg tablet 88 mcg PO QAM Tresiba FlexTouch U-200 200 unit/mL (3 mL) insulin pen 52 unit SUBCUT QAM gabapentin 100 mg capsule 100 mg PO BID hydrocortisone [Procto-Med HC] 2.5 % cream with perineal applicator See Rx Instructions .ROUTE .COMPLEX Rx Instructions: APPLY THIN LAYER TO AFFECTED AREA TWO TO FOUR TIMES A DAY. isosorbide mononitrate 30 mg tablet extended release 24 hr See Rx Instructions .ROUTE .COMPLEX Qty: 30 1RF Rx Instructions: Take 30 mg daily, do not take on dialysis days lorazepam 1 mg Tablet 1 mg PO Q8H PRN (Reason: SEVER NAUSEA) ranolazine 500 mg tablet extended release 12 hr 500 mg PO BID fluoxetine 40 mg capsule 40 mg PO QAM trazodone 100 mg tablet 300 mg PO BEDTIME PRN (Reason: insomnia) bumetanide 2 mg tablet 2 mg PO BID (DME) Dexcom G7 Direct Sales Representative Misc MISCELLANEOUS diphenhydramine HCl [Benadryl Allergy] 25 mg Tablet 50 mg PO DAILY PRN (Reason: Allergy Symptoms) insulin lispro [Humalog KwikPen Insulin] 100 unit/mL insulin pen See Rx Instructions .ROUTE .COMPLEX Rx Instructions: Sliding scale subcutaneously twice a day as needed. Trulicity 1.5 mg/0.5 mL pen injector 1.5 mg SUBCUT Q7D RenaPlex-D 800 mcg-12.5 mg -2,000 unit tablet 1 tab PO DAILY aspirin 81 mg Tablet,Delayed Release (Dr/Ec) 81 mg PO DAILY Qty: 90 3RF Eliquis 2.5 mg tablet 2.5 mg PO BID Qty: 60 2RF carvedilol 6.25 mg tablet 6.25 mg PO BID Qty: 90 0RF clopidogrel 75 mg tablet 75 mg PO DAILY Qty: 90 4RF morphine 15 mg tablet 15 mg PO BID PRN (Reason: pain) Qty: 5 0RF Discharge Orders: Discharge ED (Routine); Ordered 11/27/23 Ordered By: Timo Mckoy Referrals: Kp Montanez, [Primary Care Provider] - Discharge Diet: Usual diet Discharge Activity: Resume usual activity Patient Instructions: Opioid Safety, Pain Management Activity Restrictions/Additional Instructions: Thank you for choosing [facility] for your healthcare needs today. It is very important that you follow up as instructed or that you return to the Emergency Department should you have concerns or if your condition changes or worsens in any way. You are seen today after a fall CT of your head neck and back did not show any acute changes. He will likely be very sore the next few days. Return to the emergency room if you have further problems you should proceed with your dialysis as scheduled. Coding Level of Care Code ED Costume Technician for Aaron Irene
[2023-11-27 18:24] VITALS: BP 128/75; PULSE 74; O2SAT 98
[2023-11-27 18:27] VITALS: BP 128/75; PULSE 74; O2SAT 98
== END 2023-11-27 18:28 | disposition home or self-care (01) ==
PROVIDERS: Emergency Provider Family Medicine; PCP Internal Medicine
DX: E11.42 Type 2 diabetes mellitus with diabetic polyneuropathy (principal); L60.3 Nail dystrophy; M21.372 Foot drop, left foot; I73.9 Peripheral vascular disease, unspecified; M21.41 Flat foot [pes planus] (acquired), right foot; M21.42 Flat foot [pes planus] (acquired), left foot; Z79.4 Long term (current) use of insulin; E11.22 Type 2 diabetes mellitus with diabetic chronic kidney disease; I13.2 Hypertensive heart and chronic kidney disease with heart failure and with stage 5 chronic kidney disease, or end stage renal disease; I50.22 Chronic systolic (congestive) heart failure; N18.6 End stage renal disease; I25.10 Atherosclerotic heart disease of native coronary artery without angina pectoris; I25.5 Ischemic cardiomyopathy; E78.5 Hyperlipidemia, unspecified; I25.2 Old myocardial infarction; W18.39XA Other fall on same level, initial encounter; Y92.009 Unspecified place in unspecified non-institutional (private) residence as the place of occurrence of the external cause; Z79.85 Long-term (current) use of injectable non-insulin antidiabetic drugs; Z79.01 Long term (current) use of anticoagulants; Z79.02 Long term (current) use of antithrombotics/antiplatelets; Z79.82 Long term (current) use of aspirin
CPT/HCPCS: 11721; 70450; 72125; 72131; 96374; 99284

== ENCOUNTER 2023-12-24 07:54 | Emergency (ER) | payer MEDICARE, SELFPAY ==
[2023-12-24 07:55] VITALS: BP 184/83; PULSE 84; TEMP 37.1; O2SAT 94; BMI 38.2
--- NOTE | 2023-12-24 08:11 | CT_ITS ---
WS: [id number] CT HEAD NONCONTRAST HISTORY: trauma TECHNIQUE: Contiguous axial imaging performed through the brain in 2.5 mm imaging. Bone and soft tiss ue windows. Sagittal and coronal reformats reviewed. All CT scans at [facility] use at least one of these dose optimization techniques: automated exposure control; mA and/or kV adjustment per pa tient size (includes targeted exams where dose is matched to clinical indication); or iterative recon struction. DLP: 1753.48 mGy.cm COMPARISON: 11/27/2023 No acute intracranial hemorrhage, midline shift or mass effect. Mild atrophy and small vessel disease. Ventricles: Normal size with no hydrocephalus. No inferior displacement of the cerebellar tonsils. Paranasal sinuses: As visualized are clear. Mastoid air cells: Well pneumatized. Calvarium and scalp: Skull is intact with no soft tissue edema or swelling. CT/CT head wo con* [id number] IMPRESSION: 1. No acute intracranial hemorrhage or edema. 2. Mild atrophy and mild small vessel disease.
--- NOTE | 2023-12-24 08:11 | XR_ITS ---
WS: [id number] XR knee LT 3V* [id number] REASON FOR EXAM: trauma FINDINGS: Patella and tibial plateaus intact. Minimal narrowing of the medial, lateral, and patellofemoral joint space with mild subchondral sclero sis. No soft tissue abnormality. XR/XR knee LT 3V* [id number] IMPRESSION: No acute fracture. Minimal osteoarthritis.
--- NOTE | 2023-12-24 08:11 | CT_ITS ---
WS: [id number] CT CERVICAL SPINE HISTORY: trauma TECHNIQUE: Contiguous 2.0 mm axial imaging performed through the entire cervical spine. Sagittal and coronal reformats also performed. All CT scans at [facility] use at least one of these dose o ptimization techniques: automated exposure control; mA and/or kV adjustment per patient size (include s targeted exams where dose is matched to clinical indication); or iterative reconstruction. DLP: 1753.48 mGy.cm COMPARISON: 11/27/2023 Normal posterior cervical alignment. Advanced degenerative disc disease with osteophytosis at C5-6. F acet joints are normally aligned. Craniocervical junction is normal. Lateral masses of C1 and C2 are aligned. The odontoid is intact. Mild bony foraminal stenosis at C5-6. No central stenosis. There are extensive arterial calcifications within the carotid and vertebral arteries. Chronic emphys ematous changes at the lung apices. CT/CT cervical spin wo con* [id number] IMPRESSION: 1. No acute cervical spine fracture. 2. Advanced degenerative disc disease at C5-6.
[2023-12-24 08:13] LABS: Basophils # 0.1 10^3/uL (0.0-0.1); Basophils % 0.8 %; Eosinophils # 0.2 10^3/uL (0.0-0.8); Eosinophils % 2.1 %; Hematocrit 36.1 % (37-53); Lymphocytes # 1.4 10^3/uL (0.8-4.8); Mean Corpuscular HGB Conc 33.5 g/dL (30-55); Mean Corpuscular Hemoglobin 34.2 pg (27-33); Mean Platelet Volume 9.8 fL (7.4-10.4); Monocytes # 0.6 10^3/uL (0.2-0.9); Monocytes % 7.5 %; Neutrophils # 5.38 10^3/uL (1.8-7.7); Neutrophils % 71.1 %; Nucleated Red Blood Cells % 0 %; Platelet Count 221 10^3/cmm (157-399); Red Blood Count 3.54 10^6/uL (3.85-5.65); Red Cell Distribution Width 13.6 % (12.1-15.1); White Blood Count 7.57 10^3/uL (3.29-11.43)
[2023-12-24 08:32] LABS: Alanine Aminotransferase 13 U/L (0-41); Albumin Level 3.6 g/dL (3.5-5.2); Alkaline Phosphatase 94 U/L (40-130); Anion Gap 16.4 (5-19); Aspartate Amino Transferase 11 U/L (0-40); Blood Urea Nitrogen 35 mg/dL (6-20); Carbon Dioxide 24 mmol/L (22-29); Chloride 98 mmol/L (98-107); Creatinine Clr Calc Pharmacy 24.4283; Globulin 2.4 g/dL (1.3-4.6); Glomerular Filtration Rate 16.6 mL/min (90-130); Glucose 223 mg/dL (65-115); Osmolality Calculated 295 mOsm/kg (285-295); Potassium 3.4 mmol/L (3.5-5.1); Sodium 135 mmol/L (136-145); Total Bilirubin 0.4 mg/dL (0.15-1.2)
--- NOTE | 2023-12-24 08:48 | W.ED.FALL ---
HPI - Fall General: Chief Complaint: Fall Stated Complaint: Fall Time Seen by Provider: 12/24/23 07:55 History of Present Illness: 53-year-old male presents to the emergency room after a fall he was and route to dialysis. Patient states he has dizziness has been going on for several months he fell because he got dizzy landed on outstretched hands. He has some abrasions to the heels of his hands but no wrist pain arm pain elbow pain or shoulder pain he can move all of his upper extremities without difficulty. He is complaining of some left knee pain. He told the nurse he had lost consciousness he told me he did not lose consciousness. He arrives in a c-collar. Associated symptoms-after fall: Denies abdominal pain, chest pain or neck pain Review of Systems Const: Denies: fever(s) or chills Card: Denies: chest pain Resp: Denies: dyspnea GI: Denies: abdominal pain : Denies: dysuria, urinary frequency or urinary urgency Musc: Denies: neck pain or back pain Skin/Breast: Denies: rash PFSH ED PFSH: Medical History ESRD (end stage renal disease) Chronic renal failure Chest pain Chest pain CRF (chronic renal failure) Chronic right SI joint pain Chronic systolic heart failure UTI (urinary tract infection) Peripheral arterial disease PVD (peripheral vascular disease) Worsening angina Elevated troponin 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 mellitus Hypertension Angina at rest Chest pain ESRD (end stage renal disease) Uremic encephalopathy Generalized anxiety disorder ESRD (end stage renal disease) D-dimer, elevated Acute on chronic congestive heart failure History of pulmonary embolism Diabetes Acute kidney injury superimposed on CKD GERD (gastroesophageal reflux disease) Alcohol use disorder, moderate, in sustained remission Major depressive disorder, recurrent severe without psychotic features DVT (deep venous thrombosis) (~03/2020) Proximal left subclavian, basilic and brachial veins, started eliquis this stay, felt present prior to admission Chronic kidney disease -baseline Cr appears to be around 1.5 Atherosclerotic heart disease of [place] coronary artery with other forms of angina pectoris hx of CAD with prior stenting of proximal LAD, LCx, RCA Ischemic cardiomyopathy Onychodystrophy Chronic anticoagulation Eliquis Osteoarthritis of spine Hypothyroidism Hypertension Hyperlipidemia Diabetes Depression Anemia Foot drop, left H/O acute myocardial infarction H/O deep venous thrombosis developed compartment syndrome Surgical History Peritoneal dialysis catheter in situ (06/15/21) History of appendectomy 1995 History of excision of mass 06/08/2019: Subcutaneous mass on back History of removal of Port-a-Cath Port-A-Cath in place H/O vasectomy Hx of cholecystectomy History of coronary artery stent placement 5x H/O skin graft History of inguinal hernia repair, bilateral 2000 H/O removal of testicle left H/O colonoscopy (11/14/20) 08/2015 H/O esophagogastroduodenoscopy (11/14/20) 08/2015 Family History Grandfather Cancer skin cancer Parkinson disease Brother Hypertension Father Heart disease Mother Hypertension Stroke Aneurysm Grandmother Aneurysm Other Crohn's disease Denies family history of Anesthesia complication Bleeding disorder Social History Smoking and tobacco/nicotine status: never used tobacco/nicotine Second hand smoke exposure: No Alcohol intake: former Year of sobriety/quit date alcohol: 2015 Former alcohol use details: Only holidays Substance/Drug Use: never Lives independently: Yes Household members: significant other Marital status: Single Current occupational status: disabled Physical Exam Const: GENERAL APPEARANCE: cooperative ORIENTATION/CONSCIOUSNESS: Yes awake, Yes oriented to person, Yes oriented to place and Yes oriented to time HENMT: COMMON NORMALS: normocephalic, atraumatic and hearing grossly normal bilaterally HEAD & SCALP: normocephalic and atraumatic Resp: COMMON NORMALS: normal respiratory effort, No retractions, No use of accessory muscles and clear to auscultation bilaterally AUSCULTATION: clear to auscultation bilaterally Cardio: COMMON NORMALS: regular rate, regular rhythm and No murmurs present (Cardio) RATE: regular rate RHYTHM: regular rhythm GI: COMMON NORMALS: Soft to palpation and No hepatosplenomegaly present AUSCULTATION: Yes normoactive bowel sounds PALPATION: Yes Soft to palpation, No Tenderness to palpation present (GI), No Guarding due to palpation present (GI) and Yes No hepatosplenomegaly present Extremity: COMMON NORMALS: normal to inspection, capillary refill normal, no clubbing, cyanosis or edema, no calf tenderness and no pedal edema OTHER: Full range of motion all extremities without difficulty with the exception of some mild discomfort in the left knee he has an abrasion overlying the left knee no joint effusion no obvious deformity Neuro: SENSORIUM/ORIENTATION: Yes oriented to person, Yes oriented to place and Yes oriented to time Skin: COMMON NORMALS: no rashes or lesions noted GENERAL SKIN EXAM: no rashes or lesions noted Course Vital Signs: Vital signs: Vital Signs Temperature 98.8 F 12/24/23 07:55 Pulse Rate 84 12/24/23 07:55 Blood Pressure 184/83 12/24/23 07:55 Pulse Oximetry 94 12/24/23 07:55 Oxygen Delivery Me thod Room Air 12/24/23 07:55 MDM - Fall Medical Decision Making Labs and imaging reviewed no acute findings. Patient is able to stand he feels still somewhat dizzy but states this is a chronic problem for him. He has seen cardiology in the past. Will discharge him home he is already made his own phone call to [facility] and reschedule this dialysis for tomorrow continue other medications as prescribed. Medical Records I reviewed the patient's medical records. Lab Data I reviewed the patient's lab results. 12/24/23 08:05 12/24/23 08:05 Radiology Impressions Cervical Spine CT 12/24/23 08:11 IMPRESSION: 1. No acute cervical spine fracture. 2. Advanced degenerative disc disease at C5-6. Head CT 12/24/23 08:11 IMPRESSION: 1. No acute intracranial hemorrhage or edema. 2. Mild atrophy and mild small vessel disease. Knee X-Ray 12/24/23 08:11 IMPRESSION: No acute fracture. Minimal osteoarthritis. Laboratory Results WBC 7.57 10^3/uL (3.29-11.43) 12/24/23 08:05 RBC 3.54 10^6/uL (3.85-5.65) L 12/24/23 08:05 Hgb 12.10 g/dL (11.27-16.99) 12/24/23 08:05 Hct 36.1 % (37-53) L 12/24/23 08:05 MCV 102.0 fl (82-101) H 12/24/23 08:05 MCH 34.2 pg (27-33) H 12/24/23 08:05 MCHC 33.5 g/dL (30-55) 12/24/23 08:05 RDW 13.6 % (12.1-15.1) 12/24/23 08:05 Plt Count 221 10^3/cmm (157-399) 12/24/23 08:05 MPV 9.8 fL (7.4-10.4) 12/24/23 08:05 Neut % (Auto) 71.1 % 12/24/23 08:05 Lymph % (Auto) 18.0 % 12/24/23 08:05 [place] % (Auto) 7.5 % 12/24/23 08:05 Eos % (Auto) 2.1 % 12/24/23 08:05 Baso % (Auto) 0.8 % 12/24/23 08:05 Neut # (Auto) 5.38 10^3/uL (1.8-7.7) 12/24/23 08:05 Lymph # (Auto) 1.4 10^3/uL (0.8-4.8) 12/24/23 08:05 [place] # (Auto) 0.6 10^3/uL (0.2-0.9) 12/24/23 08:05 Eos # (Auto) 0.2 10^3/uL (0.0-0.8) 12/24/23 08:05 Baso # (Auto) 0.1 10^3/uL (0.0-0.1) 12/24/23 08:05 Nucleated RBC % (auto) 0 % 12/24/23 08:05 Nucleated RBCs # 0.0 /100WBC 12/24/23 08:05 Sodium 135 mmol/L (136-145) L 12/24/23 08:05 Potassium 3.4 mmol/L (3.5-5.1) L 12/24/23 08:05 Chloride 98 mmol/L (98-107) 12/24/23 08:05 Carbon Dioxide 24 mmol/L (22-29) 12/24/23 08:05 Anion Gap 16.4 (5-19) 12/24/23 08:05 BUN 35 mg/dL (6-20) H 12/24/23 08:05 Creatinine 3.8 mg/dL (0.7-1.2) H 12/24/23 08:05 GFR Calculation 16.6 mL/min (90-130) L 12/24/23 08:05 Glucose 223 mg/dL (65-115) H 12/24/23 08:05 Calculated Osmolality 295 mOsm/kg (285-295) 12/24/23 08:05 Calcium 9.0 mg/dL (8.5-10.5) 12/24/23 08:05 Total Bilirubin 0.4 mg/dL (0.15-1.2) 12/24/23 08:05 AST 11 U/L (0-40) 12/24/23 08:05 ALT 13 U/L (0-41) 12/24/23 08:05 Alkaline Phosphatase 94 U/L (40-130) 12/24/23 08:05 Total Protein 6.0 g/dL (6.6-8.7) L 12/24/23 08:05 Albumin 3.6 g/dL (3.5-5.2) 12/24/23 08:05 Globulin 2.4 g/dL (1.3-4.6) 12/24/23 08:05 All radiology interpretation(s) finalized by discharge Discharge Plan Discharge Patient Disposition: Home Clinical Impression: Fall, Knee pain, left, Difficulty in walking Condition: Stable Prescriptions: No Action (DME) Diabetic Shoes with Custom insoles See Rx Instructions .Route .MEDSUPPLY Qty: 1 0RF Rx Instructions: As directed (DME) AFO to left See Rx Instructions .Route .MEDSUPPLY Qty: 1 0RF Rx Instructions: As directed by [facility] bupropion HCl 300 mg tablet extended release 24 hr 300 mg PO QAM Qty: 30 2RF buspirone 10 mg tablet 10 mg PO BID Qty: 60 2RF atorvastatin 40 mg tablet 40 mg PO QAM Qty: 90 2RF nitroglycerin [Nitrostat] 0.4 mg tablet, sublingual 0.4 mg SUBLINGUAL Q5M PRN (Reason: Chest Pain) Qty: 25 2RF Rx Instructions: do not exceed 3 doses per episode Mounjaro 12.5 mg/0.5 mL pen injector 12.5 mg SUBCUT Q7D Qty: 2 0RF (DME) Dexcom G7 Sensor Device See Rx Instructions .ROUTE .COMPLEX Qty: 9 1RF Dose Instruction: CHANGE every 10 DAYS Rx Instructions: CHANGE every 10 DAYS Tresiba FlexTouch U-200 200 unit/mL (3 mL) insulin pen See Rx Instructions .ROUTE .COMPLEX Qty: 9 2RF Dose Instruction: INJECT 40 UNITS SUBCUTANEOUSLY AT BEDTIME Rx Instructions: INJECT 40 UNITS SUBCUTANEOUSLY AT BEDTIME levothyroxine 88 mcg tablet 88 mcg PO QAM gabapentin 100 mg capsule 100 mg PO BID hydrocortisone [Procto-Med HC] 2.5 % cream with perineal applicator See Rx Instructions .ROUTE .COMPLEX Rx Instructions: APPLY THIN LAYER TO AFFECTED AREA TWO TO FOUR TIMES A DAY. 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 Trulicity 1.5 mg/0.5 mL pen injector 1.5 mg SUBCUT Q7D RenaPlex-D 800 mcg-12.5 mg -2,000 unit tablet 1 tab PO DAILY aspirin 81 mg Tablet,Delayed Release (Dr/Ec) 81 mg PO DAILY Qty: 90 3RF Eliquis 2.5 mg tablet 2.5 mg PO BID Qty: 60 2RF carvedilol 6.25 mg tablet 6.25 mg PO BID Qty: 90 0RF clopidogrel 75 mg tablet 75 mg PO DAILY Qty: 90 4RF morphine 15 mg tablet 15 mg PO BID PRN (Reason: pain) Qty: 5 0RF Discharge Orders: Discharge ED (Routine); Ordered 12/24/23 Ordered By: Timo Mckoy Referrals: Kp Montanez DO [Primary Care Provider] - Discharge Diet: Usual diet Discharge Activity: Resume usual activity Patient Instructions: Opioid Safety, Pain Management Activity Restrictions/Additional Instructions: Thank you for choosing [facility] for your healthcare needs today. It is very important that you follow up as instructed or that you return to the Emergency Department should you have concerns or if your condition changes or worsens in any way. Coding Level of Care Code ED Air Dispatcher for Aaron Irene
--- NOTE | 2023-12-24 09:08 | ECG_ITS ---
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 Measurements Intervals [place] Rate: 82 P: 50 [place]: 196 QRS: 29 QRSD: 112 T: 41 QT: 407 QTc: 478 Interpretive Statements SINUS RHYTHM POSSIBLE ANTERIOR MYOCARDIAL INFARCTION , OF INDETERMINATE AGE [30 ms Q WAVE IN V3/V4, OR R < 0.2 mV IN V4] Compared to ECG 10/28/2023 20:49:15 No significant changes Electronically Signed On 12-24-2023 10:32:29 CDT by Garrison Mckinney M.D. [email or web address]
== END 2023-12-24 12:47 | disposition home or self-care (01) ==
PROVIDERS: Emergency Provider Family Medicine; PCP Internal Medicine
DX: M25.562 Pain in left knee (principal); R26.2 Difficulty in walking, not elsewhere classified; Z79.85 Long-term (current) use of injectable non-insulin antidiabetic drugs; Z79.4 Long term (current) use of insulin; Z79.01 Long term (current) use of anticoagulants; Z79.82 Long term (current) use of aspirin; Z79.02 Long term (current) use of antithrombotics/antiplatelets; E11.22 Type 2 diabetes mellitus with diabetic chronic kidney disease; I13.2 Hypertensive heart and chronic kidney disease with heart failure and with stage 5 chronic kidney disease, or end stage renal disease; I50.9 Heart failure, unspecified; N18.6 End stage renal disease; I25.10 Atherosclerotic heart disease of native coronary artery without angina pectoris; I25.5 Ischemic cardiomyopathy; E78.5 Hyperlipidemia, unspecified; I25.2 Old myocardial infarction
CPT/HCPCS: 36415; 70450; 72125; 73562; 80053; 85025; 93005; 99285

== ENCOUNTER → 2023-12-31 14:17 | Outpatient (BNVA) | payer MEDICARE, SELFPAY | PROVIDERS: PCP Internal Medicine; Visit Provider Podiatrist Foot & Ankle Surgery | DX: E11.42 Type 2 diabetes mellitus with diabetic polyneuropathy (principal); M21.372 Foot drop, left foot; I73.9 Peripheral vascular disease, unspecified; M21.41 Flat foot [pes planus] (acquired), right foot; M21.42 Flat foot [pes planus] (acquired), left foot; L97.521 Non-pressure chronic ulcer of other part of left foot limited to breakdown of skin; E11.621 Type 2 diabetes mellitus with foot ulcer; Z79.4 Long term (current) use of insulin | CPT/HCPCS: 99213 ==

== ENCOUNTER 2024-01-13 09:50 | Oncology outpatient (recurring) (ONCR) | payer MEDICARE, SELFPAY | END 2024-01-18 23:59 | disposition home or self-care (01) | PROVIDERS: PCP Internal Medicine; Visit Provider Internal Medicine | DX: Z45.2 Encounter for adjustment and management of vascular access device (principal) | CPT/HCPCS: 96523 ==

== ENCOUNTER → 2024-01-16 13:02 | Outpatient (BNVA) | payer MEDICARE, SELFPAY | PROVIDERS: PCP Internal Medicine; Visit Provider Internal Medicine Cardiovascular Disease | DX: I49.9 Cardiac arrhythmia, unspecified (principal); I49.1 Atrial premature depolarization; I49.3 Ventricular premature depolarization | CPT/HCPCS: 93242 ==

== ENCOUNTER 2024-01-21 10:35 | Emergency (ER) | payer MEDICARE, SELFPAY ==
[2024-01-21] VITALS (8 sets, daily range): BP systolic 156–176; BP diastolic 82–108; PULSE 106–111; RESP 18–24; TEMP 37; O2SAT 97–99; BMI 36.3
--- NOTE | 2024-01-21 10:48 | ECG_ITS ---
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 Measurements Intervals [place] Rate: 107 P: 63 [place]: 201 QRS: -13 QRSD: 100 T: 76 QT: 305 QTc: 407 Interpretive Statements SINUS TACHYCARDIA POSSIBLE ANTERIOR MYOCARDIAL INFARCTION , OF INDETERMINATE AGE [30 ms Q WAVE IN V3/V4, OR R < 0.2 mV IN V4] Compared to ECG 12/24/2023 09:11:32 Sinus rhythm no longer present Myocardial infarct finding still present Electronically Signed On 01-21-2024 16:41:22 CDT by Garrison Mckinney M.D. [email or web address]
--- NOTE | 2024-01-21 11:01 | XR_ITS ---
WS: [id number] Examination: XR chest 1V portable [id number] Reason for Exam: chest pain Date: 01/21/2024 Comparison: November 15, 2023 Findings: Heart size grossly enlarged on this AP portable film. The mediastinum is not widened Sternal wires are in place. There is a Port-A-Cath noted. There is no edema or effusion. There is no dense consolidation. XR/XR chest 1V portable [id number] Impression: No dense consolidative change or failure is seen.
--- NOTE | 2024-01-21 11:09 | ED_ITS ---
HPI - Chest Pain 2 General: Chief Complaint: Chest Pain Stated Complaint: Chest Pain, Kidney Pain Time Seen by Provider: 01/21/24 10:47 Source: patient Mode of arrival: EMS Limitations: no limitations History of Present Illness: Patient is a 53 year old male with a history of atherosclerotic heart disease- status post multiple PCI/history of re-stenosed stents in 2022, cardiomyopathy, congestive heart failure, pulmonary emboli, chronic kidney disease on hemodialysis T, , Sat, is presenting with complaints of chest pain and right kidney pain that developed during or right after dialysis. States he felt weak when he woke up this morning. Patient underwent cardiac cath back in October. Results listed below: Conclusions 1. Severe PDA stenosis s/p PCI with 1 stent. 2. Apical LAD has severe disease but is very distal with no significant area of myocardium supplied. 3. Posterior Descending Right was treated with a Balloon, and Drug Eluting Stent. Recommendations * Aggressive risk factor modification. * Continue eliquis and plavix. * Outpatient cardiology follow up in 4 weeks. Patient failed to follow up on 11/25 at his scheduled cardiology appointment. MD complaint: chest pain Associated symptoms: Deny abdominal pain, dyspnea, fever(s), nausea, palpitations, syncope or vomiting Related Data Home Medications Medication Instructions Recorded Confirmed levothyroxine 88 mcg tablet 88 mcg PO QAM 02/09/21 12/31/23 bumetanide 2 mg tablet 2 mg PO BID 08/16/22 12/31/23 blood-glucose meter,continuous 02/27/23 12/31/23 (Dexcom G7 Decision Science Analyst) diphenhydramine HCl 25 mg tablet 50 mg PO DAILY PRN Allergy Symptoms 05/02/23 12/31/23 (Benadryl Allergy) insulin lispro 100 unit/mL See Rx Instructions .Route .COMPLEX 05/02/23 12/31/23 subcutaneous pen (Humalog KwikPen (U-100) Insulin) gabapentin 100 mg capsule 100 mg PO BID 07/07/23 12/31/23 hydrocortisone 2.5 % topical cream See Rx Instructions .Route .COMPLEX 10/01/23 12/31/23 with perineal applicator (Procto-Med HC) fluoxetine 40 mg capsule 40 mg PO QAM 10/24/23 12/31/23 lorazepam 1 mg tablet 1 mg PO Q8H PRN SEVER NAUSEA 10/24/23 12/31/23 ranolazine 500 mg tablet,extended 500 mg PO BID 10/24/23 12/31/23 release,12 hr trazodone 100 mg tablet 300 mg PO BEDTIME PRN insomnia 10/24/23 12/31/23 dulaglutide 1.5 mg/0.5 mL 1.5 mg SUBCUT Q7D 10/29/23 12/31/23 subcutaneous pen injector (Trulicity) vit B,C-folic ac 800 mcg-zinc 12.5 1 tab PO DAILY 10/29/23 12/31/23 mg-selen-D3 2,000 unit-vit E tablet (RenaPlex-D) Previous Rx's Medication Instructions Recorded atorvastatin 40 mg tablet 40 mg PO QAM #90 tabs 10/25/22 AFO to left #1 ea 07/25/23 Diabetic Shoes with Custom insoles #1 ea 07/25/23 nitroglycerin 0.4 mg sublingual 0.4 mg sublingual Q5M PRN Chest 08/27/23 tablet (Nitrostat) Pain #25 tabs isosorbide mononitrate 30 mg See Rx Instructions .Route 10/03/23 tablet,extended release 24 hr .COMPLEX #30 tabs bupropion HCl 300 mg 24 hr tablet, 300 mg PO QAM #30 tabs 10/16/23 extended release buspirone 10 mg tablet 10 mg PO BID #60 tabs 10/16/23 apixaban 2.5 mg tablet (Eliquis) 2.5 mg PO BID #60 tabs 10/30/23 aspirin 81 mg tablet,delayed 81 mg PO DAILY #90 tabs 10/30/23 release carvedilol 6.25 mg tablet 6.25 mg PO BID #90 tabs 10/30/23 clopidogrel 75 mg tablet 75 mg PO DAILY #90 tabs 10/30/23 morphine 15 mg immediate release 15 mg PO BID PRN pain #5 tabs 10/30/23 tablet blood-glucose sensor (Five minutescom G7 #9 ea 11/25/23 Sensor device) insulin degludec 200 unit/mL (3 See Rx Instructions .Route 12/04/23 mL) subcutaneous pen (Tresiba .COMPLEX #9 mL FlexTouch U-200 insulin) tirzepatide 15 mg/0.5 mL See Rx Instructions .Route 12/30/23 subcutaneous pen injector .COMPLEX #2 mL (Mounjaro) Allergies Allergy/AdvReac Type Severity Reaction Status Date / Time Iodinated Contrast Media Allergy Severe ALGY-Difficulty Verified 12/31/23 14:29 Breathing iodine Allergy Severe ALGY-Difficulty Verified 12/31/23 14:29 Breathing metoclopramide [From Reglan] Allergy Severe ALGY-Difficulty Verified 12/31/23 14:29 Breathing nalbuphine [From Nubain] Allergy Severe ADR-Diarrhe Verified 12/31/23 14:29 a naproxen [From Naprosyn] Allergy Severe ADR-Vomitin Verified 12/31/23 14:29 g Sulfa (Sulfonamide Allergy Severe ALGY-Difficulty Verified 12/31/23 14:29 Antibiotics) Breathing ketorolac Allergy Intermediate ADR-Nausea Verified 12/31/23 14:29 ondansetron [From Zofran] Allergy Intermediate ADR-Abdominal Verified 12/31/23 14:29 Pain prochlorperazine Allergy Intermediate ADR-Irritab Verified 12/31/23 14:29 [From Compazine] le codeine AdvReac Severe ALGY-Anaphy Verified 12/31/23 14:29 laxis haloperidol [From Haldol] AdvReac Intermediate ADR-Irritab Verified 12/31/23 14:29 le Review of Systems 2 Const: Reports: other (weakness); Denies: fever(s), chills, body aches, fatigue or malaise Eyes: Denies: change in vision or blurry vision Card: Reports: chest pain; Denies: palpitations, irregular heart rhythm, lightheadedness, syncope, dyspnea on exertion, leg pain with exertion or acrocyanosis Resp: Denies: dyspnea, productive cough or pain on inspiration GI: Denies: abdominal pain, nausea, vomiting, heartburn or diarrhea : Reports: flank pain; Denies: difficulty urinating or dysuria Musc: Denies: neck pain, back pain, extremity pain, extremity swelling or joint pain Skin/Breast: Denies: rash Neuro: Denies: headache(s), numbness in extremities, weakness in extremities, sensory changes, lack of coordination, dizziness or confusion PFSH ED 2 PFSH: Medical History ESRD (end stage renal disease) Chronic renal failure Chest pain Chest pain CRF (chronic renal failure) Chronic right SI joint pain Chronic systolic heart failure UTI (urinary tract infection) Peripheral arterial disease PVD (peripheral vascular disease) Worsening angina Elevated troponin 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 mellitus Hypertension Angina at rest Chest pain ESRD (end stage renal disease) Uremic encephalopathy Generalized anxiety disorder ESRD (end stage renal disease) D-dimer, elevated Acute on chronic congestive heart failure History of pulmonary embolism Diabetes Acute kidney injury superimposed on CKD GERD (gastroesophageal reflux disease) Alcohol use disorder, moderate, in sustained remission Major depressive disorder, recurrent severe without psychotic features DVT (deep venous thrombosis) (~03/2020) Proximal left subclavian, basilic and brachial veins, started eliquis this stay, felt present prior to admission Chronic kidney disease -baseline Cr appears to be around 1.5 Atherosclerotic heart disease of [place] coronary artery with other forms of angina pectoris hx of CAD with prior stenting of proximal LAD, LCx, RCA Ischemic cardiomyopathy Onychodystrophy Chronic anticoagulation Eliquis Osteoarthritis of spine Hypothyroidism Hypertension Hyperlipidemia Diabetes Depression Anemia Foot drop, left H/O acute myocardial infarction H/O deep venous thrombosis developed compartment syndrome Surgical History Peritoneal dialysis catheter in situ (06/15/21) History of appendectomy 1995 History of excision of mass 06/08/2019: Subcutaneous mass on back History of removal of Port-a-Cath Port-A-Cath in place H/O vasectomy Hx of cholecystectomy History of coronary artery stent placement 5x H/O skin graft History of inguinal hernia repair, bilateral 2000 H/O removal of testicle left H/O colonoscopy (11/14/20) 08/2015 H/O esophagogastroduodenoscopy (11/14/20) 08/2015 Family History Grandfather Cancer skin cancer Parkinson disease Brother Hypertension Father Heart disease Mother Hypertension Stroke Aneurysm Grandmother Aneurysm Other Crohn's disease Denies family history of Anesthesia complication Bleeding disorder Social History Smoking and tobacco/nicotine status: never used tobacco/nicotine Second hand smoke exposure: No Alcohol intake: former Year of sobriety/quit date alcohol: 2015 Former alcohol use details: Only holidays Substance/Drug Use: never Lives independently: Yes Household members: significant other Marital status: Single Current occupational status: disabled Physical Exam 2 Const: COMMON NORMALS: no acute distress, patient oriented x3, no limitations and alert GENERAL APPEARANCE: cooperative ORIENTATION/CONSCIOUSNESS: Yes awake, Yes oriented to person, Yes oriented to place and Yes oriented to time Eye: GENERAL EYE: appearance normal, both eyes and all related structures Neck/C-Spine: COMMON NORMALS: no JVD Chest: COMMONS NORMALS: normal inspection of the chest and normal palpation of entire chest wall Resp: COMMON NORMALS: normal respiratory effort and clear to auscultation bilaterally AUSCULTATION: clear to auscultation bilaterally Cardio: COMMON NORMALS: no JVD and regular rhythm RATE: tachycardic R HYTHM: regular rhythm GI: COMMON NORMALS: Normal to inspection, nondistended, normoactive bowel sounds present, Soft to palpation, non-tender and no masses PALPATION: Yes Soft to palpation : BLADDER/KIDNEY EXAM: Yes CVA tenderness on the right Back/Pelvis: COMMON NORMALS: thoracic and lumbar spine normal to inspection and no thoracic nor lumbar tenderness GENERAL BACK: Yes CVA tenderness T HORACIC SPINE/UPPER BACK: No thoracic spinal tenderness and No paraspinal muscle tenderness LUMBAR SPINE/LOWER BACK: No lumbar spinal tenderness and No paraspinal muscle tenderness Extremity: GENERAL: Yes normal exam except as noted Neuro: COMMON NORMALS: patient oriented x3, moves all extremities, no focal motor deficits and no sensory deficits noted SENSORIUM/ORIENTATION: Yes alert, Yes oriented to person, Yes oriented to place and Yes oriented to time Skin: COMMON NORMALS: no rashes or lesions noted GENERAL SKIN EXAM: no rashes or lesions noted Course 2 Vital Signs: Vital signs: Vital Signs Temperature 98.6 F 01/21/24 10:54 Pulse Rate 107 H 01/21/24 15:00 Respiratory Rate 24 H 01/21/24 13:57 Blood Pressure 176/99 01/21/24 15:00 Pulse Oximetry 97 01/21/24 15:00 Oxygen Delivery Me thod Room Air 01/21/24 15:00 MDM - Chest Pain Medical Decision Making Patient is a 53-year-old male well-known to our emergency department here for chest pain and right flank pain that developed following his dialysis treatment earlier today. His cardiac workup overall is benign. His EKGs are nonischemic. CXR is unremarkable. Baseline troponin is 67 which is his normal baseline trop. 2-hour troponin of 68.64. D-dimer ordered due to tachycardia. This was scantly elevated at 0.60. He does not complain of any shortness of breath or difficulty breathing. He is already on Eliquis. No evidence of heart strain on his EKG. CTA imaging withheld. I did CT his abdomen secondary to his right flank pain and presence of 5-10 RBCs on his UA. This was essentially unremarkable. COVID PCR obtained and pending at time of discharge. At this time I would like patient to follow-up with his primary care provider later this week for reevaluation. Return to ED precautions given. Medical Records I reviewed the patient's medical records. Lab Data I reviewed the patient's lab results. 01/21/24 13:08 01/21/24 13:08 Radiology Impressions Chest X-Ray 01/21/24 11:01 Impression: No dense consolidative change or failure is seen. Abdomen/Pelvis CT 01/21/24 14:08 Impression: There is extensive atherosclerosis and calcified vasculature throughout. No obstructing renal calculi is identified. Stable bilateral adrenal nodules are noted. Laboratory Results WBC 8.03 10^3/uL (3.29-11.43) 01/21/24 13:08 RBC 3.82 10^6/uL (3.85-5.65) L 01/21/24 13:08 Hgb 13.00 g/dL (11.27-16.99) 01/21/24 13:08 Hct 37.1 % (37-53) 01/21/24 13:08 MCV 97.1 fl (82-101) 01/21/24 13:08 MCH 34.0 pg (27-33) H 01/21/24 13:08 MCHC 35.0 g/dL (30-55) 01/21/24 13:08 RDW 13.2 % (12.1-15.1) 01/21/24 13:08 Plt Count 232 10^3/cmm (157-399) 01/21/24 13:08 MPV 9.2 fL (7.4-10.4) 01/21/24 13:08 Neut % (Auto) 87.1 % 01/21/24 13:08 Lymph % (Auto) 4.2 % 01/21/24 13:08 [place] % (Auto) 7.5 % 01/21/24 13:08 Eos % (Auto) 0.2 % 01/21/24 13:08 Baso % (Auto) 0.5 % 01/21/24 13:08 Neut # (Auto) 6.99 10^3/uL (1.8-7.7) 01/21/24 13:08 Lymph # (Auto) 0.3 10^3/uL (0.8-4.8) L 01/21/24 13:08 [place] # (Auto) 0.6 10^3/uL (0.2-0.9) 01/21/24 13:08 Eos # (Auto) 0.0 10^3/uL (0.0-0.8) 01/21/24 13:08 Baso # (Auto) 0.0 10^3/uL (0.0-0.1) 01/21/24 13:08 Nucleated RBC % (auto) 0 % 01/21/24 13:08 Nucleated RBCs # 0.0 /100WBC 01/21/24 13:08 D-Dimer 0.60 ug/mLFEU (0-0.59) H 01/21/24 13:08 Sodium 139 mmol/L (136-145) 01/21/24 13:08 Potassium 4.1 mmol/L (3.5-5.1) 01/21/24 13:08 Chloride 98 mmol/L (98-107) 01/21/24 13:08 Carbon Dioxide 26 mmol/L (22-29) 01/21/24 13:08 Anion Gap 19.1 (5-19) H 01/21/24 13:08 BUN 28 mg/dL (6-20) H 01/21/24 13:08 Creatinine 3.0 mg/dL (0.7-1.2) H 01/21/24 13:08 GFR Calculation 21.8 mL/min (90-130) L 01/21/24 13:08 Glucose 157 mg/dL (65-115) H 01/21/24 13:08 Calculated Osmolality 297 mOsm/kg (285-295) H 01/21/24 13:08 Calcium 8.9 mg/dL (8.5-10.5) 01/21/24 13:08 Total Bilirubin 0.5 mg/dL (0.15-1.2) 01/21/24 13:08 AST 21 U/L (0-40) 01/21/24 13:08 ALT 15 U/L (0-41) 01/21/24 13:08 Alkaline Phosphatase 105 U/L (40-130) 01/21/24 13:08 Troponin T Baseline 67 ng/L (0-15) H 01/21/24 13:08 Troponin T 120 Minute 68.64 ng/L (0-15) H 01/21/24 15:08 Delta Troponin T 1.64 ABS# (0-10) 01/21/24 15:08 Total Protein 6.5 g/dL (6.6-8.7) L 01/21/24 13:08 Albumin 4.4 g/dL (3.5-5.2) 01/21/24 13:08 Globulin 2.1 g/dL (1.3-4.6) 01/21/24 13:08 Urine Color Yellow (Yellow) 01/21/24 13:30 Urine Appearance Clear (CLEAR) 01/21/24 13:30 Urine pH 8.0 (5-7) A 01/21/24 13:30 Ur Specific [place] 1.013 (1.005-1.030) 01/21/24 13:30 Urine Protein 3+ (Negative) A 01/21/24 13:30 Urine Glucose (UA) 2+ (Normal) H 01/21/24 13:30 Urine Ketones Negative (Negative) 01/21/24 13:30 Urine Blood Negative (Negative) 01/21/24 13:30 Urine Nitrate Negative (Negative) 01/21/24 13:30 Urine Bilirubin Negative (Negative) 01/21/24 13:30 Urine Urobilinogen 0.2 mg/dL (Negative) 01/21/24 13:30 Ur Leukocyte Esterase Negative (Negative) 01/21/24 13:30 Urine RBC 5-10 /hpf (0-2) H 01/21/24 13:30 Urine WBC 0-4 /hpf (0-5) H 01/21/24 13:30 Ur Squamous Epith Cells 0-4 /hpf (0-5) H 01/21/24 13:30 Amorphous Sediment Not Reportable 01/21/24 13:30 Urine Bacteria None /hpf (NONE) 01/21/24 13:30 Urine Mucus None /hpf 01/21/24 13:30 All radiology interpretation(s) finalized by discharge Discharge Plan Discharge Patient Disposition: Home Clinical Impression: Acute right flank pain Chest pain Qualifiers: Chest pain type: unspecified Qualified Code(s): R07.9 - Chest pain, unspecified Condition: Stable Prescriptions: No Action (DME) Diabetic Shoes with Custom insoles See Rx Instructions .Route .MEDSUPPLY Qty: 1 0RF Rx Instructions: As directed (DME) AFO to left See Rx Instructions .Route .MEDSUPPLY Qty: 1 0RF Rx Instructions: As directed by [facility] bupropion HCl 300 mg tablet extended release 24 hr 300 mg PO QAM Qty: 30 2RF buspirone 10 mg tablet 10 mg PO BID Qty: 60 2RF atorvastatin 40 mg tablet 40 mg PO QAM Qty: 90 2RF nitroglycerin [Nitrostat] 0.4 mg tablet, sublingual 0.4 mg SUBLINGUAL Q5M PRN (Reason: Chest Pain) Qty: 25 2RF Rx Instructions: do not exceed 3 doses per episode (DME) Dexcom G7 Sensor Device See Rx Instructions .ROUTE .COMPLEX Qty: 9 1RF Dose Instruction: CHANGE every 10 DAYS Rx Instructions: CHANGE every 10 DAYS Tresiba FlexTouch U-200 200 unit/mL (3 mL) insulin pen See Rx Instructions .ROUTE .COMPLEX Qty: 9 2RF Dose Instruction: INJECT 40 UNITS SUBCUTANEOUSLY AT BEDTIME Rx Instructions: INJECT 40 UNITS SUBCUTANEOUSLY AT BEDTIME Mounjaro 15 mg/0.5 mL pen injector See Rx Instructions .ROUTE .COMPLEX Qty: 2 2RF Dose Instruction: inject 15mg (0.5ml) SUBCUTANEOUSLY EVERY 7 DAYS Rx Instructions: inject 15mg (0.5ml) SUBCUTANEOUSLY EVERY 7 DAYS levothyroxine 88 mcg tablet 88 mcg PO QAM gabapentin 100 mg capsule 100 mg PO BID hydrocortisone [Procto-Med HC] 2.5 % cream with perineal applicator See Rx Instructions .ROUTE .COMPLEX Rx Instructions: APPLY THIN LAYER TO AFFECTED AREA TWO TO FOUR TIMES A DAY. isosorbide mononitrate 30 mg tablet extended release 24 hr See Rx Instructions .ROUTE .COMPLEX Qty: 30 1RF Rx Instructions: Take 30 mg daily, do not take on dialysis days lorazepam 1 mg Tablet 1 mg PO Q8H PRN (Reason: SEVER NAUSEA) ranolazine 500 mg tablet extended release 12 hr 500 mg PO BID fluoxetine 40 mg capsule 40 mg PO QAM trazodone 100 mg tablet 300 mg PO BEDTIME PRN (Reason: insomnia) bumetanide 2 mg tablet 2 mg PO BID (DME) Dexcom G7 Decision Science Analyst Misc MISCELLANEOUS diphenhydramine HCl [Benadryl Allergy] 25 mg Tablet 50 mg PO DAILY PRN (Reason: Allergy Symptoms) insulin lispro [Humalog KwikPen Insulin] 100 unit/mL insulin pen See Rx Instructions .ROUTE .COMPLEX Rx Instructions: Sliding scale subcutaneously twice a day as needed. Trulicity 1.5 mg/0.5 mL pen injector 1.5 mg SUBCUT Q7D RenaPlex-D 800 mcg-12.5 mg -2,000 unit tablet 1 tab PO DAILY aspirin 81 mg Tablet,Delayed Release (Dr/Ec) 81 mg PO DAILY Qty: 90 3RF Eliquis 2.5 mg tablet 2.5 mg PO BID Qty: 60 2RF carvedilol 6.25 mg tablet 6.25 mg PO BID Qty: 90 0RF clopidogrel 75 mg tablet 75 mg PO DAILY Qty: 90 4RF morphine 15 mg tablet 15 mg PO BID PRN (Reason: pain) Qty: 5 0RF Discharge Orders: Discharge ED (Routine); Ordered 01/21/24 Ordered By: Ellen Nath Referrals: Kp Montanez DO [Primary Care Provider] - Activity Restrictions/Additional Instructions: As we discussed I would like you to contact your primary care provider to schedule an ER follow-up later this week/early next week for reevaluation. Coding Level of Care Code ED Amplifier Mechanic for Aaron Irene
--- NOTE | 2024-01-21 11:27 | PC.NURSE ---
pt refusing iv, states he wants his chest port accessed. charge nurse notified and aware.
--- NOTE | 2024-01-21 11:29 | PC.NURSE ---
pt asked for urine sample, pt states he will try in a few moments.
[2024-01-21 13:15] LABS: Basophils % 0.5 %; Eosinophils % 0.2 %; Hematocrit 37.1 % (37-53); Lymphocytes # 0.3 10^3/uL (0.8-4.8); Lymphocytes % 4.2 %; Mean Corpuscular Volume 97.1 fl (82-101); Mean Platelet Volume 9.2 fL (7.4-10.4); Monocytes # 0.6 10^3/uL (0.2-0.9); Monocytes % 7.5 %; Neutrophils # 6.99 10^3/uL (1.8-7.7); Neutrophils % 87.1 %; Nucleated Red Blood Cells % 0 %; Platelet Count 232 10^3/cmm (157-399); Red Blood Count 3.82 10^6/uL (3.85-5.65); Red Cell Distribution Width 13.2 % (12.1-15.1); White Blood Count 8.03 10^3/uL (3.29-11.43)
--- NOTE | 2024-01-21 13:19 | PC.NURSE ---
pt using restroom now to obtain urine sample.
[2024-01-21 13:39] LABS: Alanine Aminotransferase 15 U/L (0-41); Albumin Level 4.4 g/dL (3.5-5.2); Alkaline Phosphatase 105 U/L (40-130); Aspartate Amino Transferase 21 U/L (0-40); Blood Urea Nitrogen 28 mg/dL (6-20); Calcium 8.9 mg/dL (8.5-10.5); Carbon Dioxide 26 mmol/L (22-29); Chloride 98 mmol/L (98-107); Globulin 2.1 g/dL (1.3-4.6); Glomerular Filtration Rate 21.8 mL/min (90-130); Glucose 157 mg/dL (65-115); Osmolality Calculated 297 mOsm/kg (285-295); Sodium 139 mmol/L (136-145); Total Bilirubin 0.5 mg/dL (0.15-1.2); Total Protein 6.5 g/dL (6.6-8.7)
[2024-01-21 13:39] LABS: Charge for UA Resulting for Rev
[2024-01-21 13:41] LABS: Troponin(5th) Baseline 67 ng/L (0-15)
[2024-01-21 13:43] LABS: Bilirubin Urine Negative (Negative); Blood Urine Negative (Negative); Glucose Urine UA 2+ (Normal); Ketones Urine Negative (Negative); Leukocyte Esterase Urine Negative (Negative); Nitrate Urine Negative (Negative); Protein Urine 3+ (Negative); Specific Gravity, Urine 1.013 (1.005-1.030); Urine Appearance Clear (CLEAR); Urine Color Yellow (Yellow); Urobilinogen Urine 0.2 mg/dL (Negative)
[2024-01-21 13:50] LABS: Creatinine Clr Calc Pharmacy 31.1286
[2024-01-21 13:51] LABS: Anion Gap 19.1 (5-19); Potassium 4.1 mmol/L (3.5-5.1)
--- NOTE | 2024-01-21 13:54 | ECG_ITS ---
[facility] Test Date: 2024-01-21 Pat Name: Rei Queen Department: Room: Gender: Male Case Maker: : 1970 Requested By: Ellen Nath Order Number: [id number] Becky MD: Garrison Mckinney M.D. Measurements Intervals Reeves Rate: 105 P: 49 MO: 182 QRS: -33 QRSD: 93 T: 57 QT: 329 QTc: 436 Interpretive Statements SINUS TACHYCARDIA POSSIBLE LEFT ATRIAL ENLARGEMENT [-0.1mV P-WAVE IN V1/V2] LEFT AXIS DEVIATION [QRS AXIS < -30] POSSIBLE ANTERIOR MYOCARDIAL INFARCTION , OF INDETERMINATE AGE [30 ms Q WAVE IN V3/V4, OR R < 0.2 mV IN V4] Compared to ECG 01/21/2024 10:48:43 Left-axis deviation now present Myocardial infarct finding still present Electronically Signed On 01-21-2024 16:44:36 CDT by Garrison Mckinney M.D. [id number] f
[2024-01-21 13:56] LABS: UA Manual Slide Review YES; UA Slide Review UA Slide Review Perf
[2024-01-21] MEDS: morphine 4 mg/mL SDV 1 mL IM (13:57)
[2024-01-21 13:58] LABS: Add Urine Culture? No; Squamous Epithelial Cell Urine 0-4 /hpf (0-5); WBC Urine 0-4 /hpf (0-5)
--- NOTE | 2024-01-21 14:08 | CT_ITS ---
WS: [id number] Examination: CT kidney stone [id number] Reason for Exam: R flank pain Date: 01/21/2024 Comparison: 02/09/2023 DLP: 1070.[address] scans at [facility] use at least one of these dose optimization techniques: automated e xposure control; mA and/or kV adjustment per patient size (includes targeted exams where dose is matc hed to clinical indication); or iterative reconstruction. Findings: There is been a median sternotomy. No pleural effusion is identified. The liver is normal in size and appearance. The gallbladder has been removed.. The spleen is unremarkable. Again bilateral adrenal nodules are identified this measures approximately 20 x 25 mm on the right 38 x 17 mm on the left. The kidneys are symmetric and normal in size. There is extensive vascular calcification within both k idneys. There is no nephrolithiasis. There is no ureteral stone or dilatation. No bladder stone is id entified. No hydronephrosis is identified. On the left there is a 12 mm hyperdense nodule that was no t appreciated previously and I suspect represents a hemorrhagic cyst. The pancreas is unremarkable. The aorta is extensively calcified without aneurysmal dilatation. There is extensive vascular calcification atherosclerotic change involving the celiac and mesenteric vesse ls as well as the renal arteries. There is no bowel obstruction. There is no free fluid or free air. There is a moderate stool burden CT/CT kidney stone [id number] Impression: There is extensive atherosclerosis and calcified vasculature throughout. No obstructing renal calculi is identified. Stable bilateral adrenal nodules are noted.
[2024-01-21 15:48] LABS: Troponin 5 2HR 68.64 ng/L (0-15); Troponin 5 2HR Delta 1.64 ABS# (0-10)
[2024-01-21 17:15] LABS: Adenovirus Not Detected (NOT DETECT); Chlamydia Pneumoniae Not Detected (NOT DETECT); Coronavirus 229E,HKU1,NL63,OC4 Not Detected (NOT DETECT); Human Metapneumovirus Not Detected (NOT DETECT); Human Rhinovirus/Enterovirus Not Detected (NOT DETECT); Influenza A Not Detected (NOT DETECT); Influenza A H1 Not Detected (NOT DETECT); Influenza A H1-2009 Not Detected (NOT DETECT); Influenza A H3 Not Detected (NOT DETECT); Influenza B Not Detected (NOT DETECT); Mycoplasma Pneumoniae Not Detected (NOT DETECT); Parainfluenza Virus Type 1 Not Detected (NOT DETECT); Parainfluenza Virus Type 2 Not Detected (NOT DETECT); Parainfluenza Virus Type 3 Not Detected (NOT DETECT); Parainfluenza Virus Type 4 Not Detected (NOT DETECT); Respiratory Syncytial Virus A Not Detected (NOT DETECT); Respiratory Syncytial Virus B Not Detected (NOT DETECT)
[2024-01-21 17:22] LABS: SARS-COV-2 Detected (NOT DETECT)
== END 2024-01-21 16:15 | disposition home or self-care (01) ==
PROVIDERS: Emergency Provider Physician Assistant; PCP Internal Medicine
DX: R07.9 Chest pain, unspecified (principal); R10.9 Unspecified abdominal pain; Z79.4 Long term (current) use of insulin; Z79.85 Long-term (current) use of injectable non-insulin antidiabetic drugs; Z79.01 Long term (current) use of anticoagulants; Z79.82 Long term (current) use of aspirin; Z79.02 Long term (current) use of antithrombotics/antiplatelets; E11.22 Type 2 diabetes mellitus with diabetic chronic kidney disease; I13.2 Hypertensive heart and chronic kidney disease with heart failure and with stage 5 chronic kidney disease, or end stage renal disease; I50.9 Heart failure, unspecified; N18.6 End stage renal disease; I25.10 Atherosclerotic heart disease of native coronary artery without angina pectoris; I25.5 Ischemic cardiomyopathy; E78.5 Hyperlipidemia, unspecified; I25.2 Old myocardial infarction; U07.1 COVID-19
CPT/HCPCS: 36415; 71045; 74176; 80053; 81003; 81015; 84484; 85025; 85378; 87635; 93005; 96372; 99285; J2270

== ENCOUNTER → 2024-01-29 13:24 | Outpatient (BNVA) | payer MEDICARE, SELFPAY | PROVIDERS: PCP Internal Medicine; Visit Provider Podiatrist Foot & Ankle Surgery | DX: M21.372 Foot drop, left foot (principal); M21.41 Flat foot [pes planus] (acquired), right foot; M21.42 Flat foot [pes planus] (acquired), left foot; N18.9 Chronic kidney disease, unspecified; E11.42 Type 2 diabetes mellitus with diabetic polyneuropathy; L60.3 Nail dystrophy; Z79.4 Long term (current) use of insulin | CPT/HCPCS: 11721 ==

== ENCOUNTER 2024-02-03 11:33 | Emergency (ER) | payer MEDICARE, SELFPAY ==
--- NOTE | 2024-02-03 11:35 | CT_ITS ---
WS: [id number] CT HEAD NONCONTRAST HISTORY: trauma/fall TECHNIQUE: Contiguous axial imaging performed through the brain in 2.0 mm imaging. Bone and soft tiss ue windows. Sagittal and coronal reformats reviewed. All CT scans at [facility] use at least one of these dose optimization techniques: automated exposure control; mA and/or kV adjustment per pa tient size (includes targeted exams where dose is matched to clinical indication); or iterative recon struction. DLP: 3077.94 mGy.cm COMPARISON: 12/24/2023 No acute intracranial hemorrhage, midline shift or mass effect. Mild atrophy and small vessel disease. Ventricles: Normal size with no hydrocephalus. Paranasal sinuses: As visualized are clear. Mastoid air cells: Well pneumatized. Calvarium and scalp: Skull is intact with no soft tissue edema or swelling. CT/CT head wo con* [id number] IMPRESSION: Stable noncontrast head CT. No acute fractures and no intracranial hemorrhage.
--- NOTE | 2024-02-03 11:35 | CT_ITS ---
WS: [id number] CT CERVICAL SPINE HISTORY: fall TECHNIQUE: Contiguous 2.0 mm axial imaging performed through the entire cervical spine. Sagittal and coronal reformats also performed. All CT scans at [facility] use at least one of these dose o ptimization techniques: automated exposure control; mA and/or kV adjustment per patient size (include s targeted exams where dose is matched to clinical indication); or iterative reconstruction. DLP: 3077.94 mGy.cm COMPARISON: 12/24/2023 Posterior cervical alignment is normal. No acute cervical spine fracture. Advanced degenerative disc disease at C5-6 is stable. Facet joints are normally aligned. Craniocervical junction is normal. [place] toid is intact. C2-C3: Normal. C3-C4: Normal. C4-C5: Small facet osteophytes. C5-C6: Mild osteophytic ridging encroaching upon the ventral thecal sac. Mild central and bilateral f oraminal stenosis. C6-C7: Small foraminal osteophytes. C7-T1: Normal. Atherosclerosis aorta. Emphysematous changes at the lung apices. Left-sided Mediport. Heavy calcifica tion in the cervical carotid arteries. CT/CT cervical spin wo con* [id number] IMPRESSION: 1. No acute cervical spine fracture. 2. Moderate degenerative disc disease at C5-6.
[2024-02-03 11:41] VITALS: BP 152/61; PULSE 86; TEMP 36.8; O2SAT 95; BMI 37.3
--- NOTE | 2024-02-03 11:48 | CT_ITS ---
WS: [id number] CT FACIAL BONES HISTORY: trip/fall TECHNIQUE: Images obtained from the supraorbital location through the mandible. Soft tissue and bone windows are reviewed. Coronal and sagittal reformats have also been submitted. DLP: 3077.[address] scans at [facility] [place] use at least one of these dose optimization techniques: automated e xposure control; mA and/or kV adjustment per patient size (includes targeted exams where dose is matc hed to clinical indication); or iterative reconstruction. COMPARISON: None available. Motion artifact. No facial bone fractures are identified. The zygomatic arches are intact. Nasal bone s are intact. No air-fluid levels in the sinuses. No significant soft tissue hematoma. Extensive athe rosclerotic plaque in the visualized carotid arteries. Upper cervical spine is negative. No air-fluid levels in the sinuses. CT/CT facial bones wo con* [id number] IMPRESSION: 1. No facial bone fracture. 2. No soft tissue hematoma.
--- NOTE | 2024-02-03 15:20 | W.ED.FALL ---
HPI - Fall General: Chief Complaint: Fall Stated Complaint: Fell hit head Time Seen by Provider: 02/03/24 14:56 Source: patient Mode of arrival: wheelchair Limitations: no limitations History of Present Illness: Patient is a 53-year-old male presents to ED today for evaluation following a fall. Patient states he accidentally tripped and fell earlier today. He states he struck his nose and it did bleed for small amount of time but has subsided. Also feels like maybe he struck the back of his head. He is on anticoagulation. No LOC. No other injuries or complaints at this time. MD complaint: fall Onset (ago): hour(s) Fall from: standing Fall witnessed: no Place fall occurred: home Loss of consciousness: None Prolonged down time: no Symptoms prior to fall: none Context: tripped/slipped Location of injury: head and face Associated symptoms-after fall: Reports no associated symptoms and headache(s); Denies abdominal pain, chest pain, confusion, hematuria, lightheadedness or neck pain Related Data Home Medications Medication Instructions Recorded Confirmed levothyroxine 88 mcg tablet 88 mcg PO QAM 02/09/21 01/29/24 bumetanide 2 mg tablet 2 mg PO BID 08/16/22 01/29/24 blood-glucose meter,continuous 02/27/23 01/29/24 (Dexcom G7 Asset Accountant) diphenhydramine HCl 25 mg tablet 50 mg PO DAILY PRN Allergy Symptoms 05/02/23 01/29/24 (Benadryl Allergy) insulin lispro 100 unit/mL See Rx Instructions .Route .COMPLEX 05/02/23 01/29/24 subcutaneous pen (Humalog KwikPen (U-100) Insulin) gabapentin 100 mg capsule 100 mg PO BID 07/07/23 01/29/24 hydrocortisone 2.5 % topical cream See Rx Instructions .Route .COMPLEX 10/01/23 01/29/24 with perineal applicator (Procto-Med HC) lorazepam 1 mg tablet 1 mg PO Q8H PRN SEVER NAUSEA 10/24/23 01/29/24 ranolazine 500 mg tablet,extended 500 mg PO BID 10/24/23 01/29/24 release,12 hr dulaglutide 1.5 mg/0.5 mL 1.5 mg SUBCUT Q7D 10/29/23 01/29/24 subcutaneous pen injector (Trulicity) vit B,C-folic ac 800 mcg-zinc 12.5 1 tab PO DAILY 10/29/23 01/29/24 mg-selen-D3 2,000 unit-vit E tablet (RenaPlex-D) Previous Rx's Medication Instructions Recorded atorvastatin 40 mg tablet 40 mg PO QAM #90 tabs 10/25/22 AFO to left #1 ea 07/25/23 Diabetic Shoes with Custom insoles #1 ea 07/25/23 nitroglycerin 0.4 mg sublingual 0.4 mg sublingual Q5M PRN Chest 08/27/23 tablet (Nitrostat) Pain #25 tabs isosorbide mononitrate 30 mg See Rx Instructions .Route 10/03/23 tablet,extended release 24 hr .COMPLEX #30 tabs apixaban 2.5 mg tablet (Eliquis) 2.5 mg PO BID #60 tabs 10/30/23 aspirin 81 mg tablet,delayed 81 mg PO DAILY #90 tabs 10/30/23 release carvedilol 6.25 mg tablet 6.25 mg PO BID #90 tabs 10/30/23 clopidogrel 75 mg tablet 75 mg PO DAILY #90 tabs 10/30/23 morphine 15 mg immediate release 15 mg PO BID PRN pain #5 tabs 10/30/23 tablet blood-glucose sensor (Dexcom G7 #9 ea 11/25/23 Sensor device) insulin degludec 200 unit/mL (3 See Rx Instructions .Route 12/04/23 mL) subcutaneous pen (Tresiba .COMPLEX #9 mL FlexTouch U-200 insulin) tirzepatide 15 mg/0.5 mL See Rx Instructions .Route 12/30/23 subcutaneous pen injector .COMPLEX #2 mL (Mounjaro) bupropion HCl 300 mg 24 hr tablet, 300 mg PO QAM #30 tabs 01/22/24 extended release buspirone 10 mg tablet 10 mg PO BID #60 tabs 01/22/24 fluoxetine 40 mg capsule 40 mg PO QAM #30 caps 01/22/24 trazodone 100 mg tablet 400 mg (4 x 100 mg) PO .HS PRN 01/22/24 insomnia #120 tabs Allergies Allergy/AdvReac Type Severity Reaction Status Date / Time Iodinated Contrast Media Allergy Severe ALGY-Difficulty Verified 02/03/24 11:45 Breathing iodine Allergy Severe ALGY-Difficulty Verified 02/03/24 11:45 Breathing metoclopramide [From Reglan] Allergy Severe ALGY-Difficulty Verified 02/03/24 11:45 Breathing nalbuphine [From Nubain] Allergy Severe ADR-Diarrhe Verified 02/03/24 11:45 a naproxen [From Naprosyn] Allergy Severe ADR-Vomitin Verified 02/03/24 11:45 g Sulfa (Sulfonamide Allergy Severe ALGY-Difficulty Verified 02/03/24 11:45 Antibiotics) Breathing ketorolac Allergy Intermediate ADR-Nausea Verified 02/03/24 11:45 ondansetron [From Zofran] Allergy Intermediate ADR-Abdominal Verified 02/03/24 11:45 Pain prochlorperazine Allergy Intermediate ADR-Irritab Verified 02/03/24 11:45 [From Compazine] le codeine AdvReac Severe ALGY-Anaphy Verified 02/03/24 11:45 laxis haloperidol [From Haldol] AdvReac Intermediate ADR-Irritab Verified 02/03/24 11:45 le Review of Systems Eyes: Denies: change in vision, blurry vision, photophobia, eye discharge, floaters or seeing flashes ENMT: Denies: throat pain, odynophagia, ear or mastoid pain, ear discharge, nasal discharge, epistaxis or sinus pain Card: Denies: chest pain, palpitations, lightheadedness, syncope or pre-syncope Resp: Denies: dyspnea or pain on inspiration GI: Denies: abdominal pain : Denies: flank pain or hematuria Musc: Denies: neck pain, back pain, extremity pain or joint pain Neuro: Reports: headache(s); Denies: numbness in extremities, weakness in extremities, sensory changes, dizziness, confusion or Slurred speech present PFSH ED PFSH: Medical History 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 mellitus ESRD (end stage renal disease) Chronic renal failure Chest pain Chest pain CRF (chronic renal failure) Chronic right SI joint pain Chronic systolic heart failure UTI (urinary tract infection) Peripheral arterial disease PVD (peripheral vascular disease) Worsening angina Elevated troponin Hypertension Angina at rest Chest pain ESRD (end stage renal disease) Uremic encephalopathy Generalized anxiety disorder ESRD (end stage renal disease) D-dimer, elevated Acute on chronic congestive heart failure History of pulmonary embolism Diabetes Acute kidney injury superimposed on CKD GERD (gastroesophageal reflux disease) Alcohol use disorder, moderate, in sustained remission Major depressive disorder, recurrent severe without psychotic features DVT (deep venous thrombosis) (~03/2020) Proximal left subclavian, basilic and brachial veins, started eliquis this stay, felt present prior to admission Chronic kidney disease -baseline Cr appears to be around 1.5 Atherosclerotic heart disease of [place] coronary artery with other forms of angina pectoris hx of CAD with prior stenting of proximal LAD, LCx, RCA Ischemic cardiomyopathy Onychodystrophy Chronic anticoagulation Eliquis Osteoarthritis of spine Hypothyroidism Hypertension Hyperlipidemia Diabetes Depression Anemia Foot drop, left H/O acute myocardial infarction H/O deep venous thrombosis developed compartment syndrome Surgical History Peritoneal dialysis catheter in situ (06/15/21) History of appendectomy 1995 History of excision of mass 06/08/2019: Subcutaneous mass on back History of removal of Port-a-Cath Port-A-Cath in place H/O vasectomy Hx of cholecystectomy History of coronary artery stent placement 5x H/O skin graft History of inguinal hernia repair, bilateral 2000 H/O removal of testicle left H/O colonoscopy (11/14/20) 08/2015 H/O esophagogastroduodenoscopy (11/14/20) 08/2015 Family History Grandfather Cancer skin cancer Parkinson disease Brother Hypertension Father Heart disease Mother Hypertension Stroke Aneurysm Grandmother Aneurysm Other Crohn's disease Denies family history of Anesthesia complication Bleeding disorder Social History Smoking and tobacco/nicotine status: never used tobacco/nicotine Second hand smoke exposure: No Alcohol intake: former Year of sobriety/quit date alcohol: 2015 Former alcohol use details: Only holidays Substance/Drug Use: never Lives independently: Yes Household members: significant other Marital status: Single Current occupational status: disabled Physical Exam Const: COMMON NORMALS: no acute distress, average body habitus, patient oriented x3, no limitations, healthy appearing, alert and well nourished GENERAL APPEARANCE: cooperative ORIENTATION/CONSCIOUSNESS: Yes awake, Yes oriented to person, Yes oriented to place and Yes oriented to time HENMT: COMMON NORMALS: normocephalic, atraumatic and TM's normal bilaterally HEAD & SCALP: normal to inspection, normocephalic and atraumatic; no Roldan's sign, no hematoma and no raccoon eyes FACE & SINUS: normal facial exam TYMPANIC MEMBRANE: TM's normal bilaterally MOUTH: other (no intraoral injuries noted) Eye: COMMON NORMALS: Equal, round and reactive pupils present and EOMs intact bilaterally GENERAL EYE: appearance normal, both eyes and all related structures and normal light reflex PUPIL: Yes Equal, round and reactive pupils present DIRECT OPHTHALMOSCOPY: Yes normal light reflex Neck/C-Spine: COMMON NORMALS: full ROM GENERAL: Yes normal visual inspection CERVICAL SPINE: Yes cervical ROM normal, No pain with cervical ROM, No Cervical spine tenderness, No step off deformity and No Paracervical muscle tenderness Chest: COMMONS NORMALS: normal inspection of the chest and normal palpation of entire chest wall Resp: COMMON NORMALS: normal respiratory effort and clear to auscultation bilaterally AUSCULTATION: clear to auscultation bilaterally Cardio: COMMON NORMALS: regular rate and regular rhythm RATE: regular rate RHYTHM: regular rhythm GI: COMMON NORMALS: Normal to inspection, nondistended, normoactive bowel sounds present, Soft to palpation, non-tender, No hepatosplenomegaly present and no masses INSPECTION: Yes normal to inspection and No abdominal wall ecchymosis AUSCULTATION: Yes normoactive bowel sounds PALPATION: Yes Soft to palpation and Yes No hepatosplenomegaly present Back/Pelvis: COMMON NORMALS: thoracic and lumbar spine normal to inspection, no thoracic nor lumbar tenderness and thoraco-lumbar ROM normal Extremity: COMMON NORMALS: normal to inspection and full ROM GENERAL: Yes normal exam except as noted Neuro: EDMOND COMA SCALE: document GCS findings [place] coma scale eye opening: Spontaneous [place] coma scale verbal response: Orientated [place] coma scale motor response: Obey commands [place] coma scale total score: 15 COMMON NORMALS: patient oriented x3, CN's II-XII intact bilaterally, moves all extremities, no focal motor deficits, no sensory deficits noted and gait normal SENSORIUM/ORIENTATION: Yes alert, Yes oriented to person, Yes oriented to place and Yes oriented to time SPEECH: speech normal GAIT: Yes Normal gait present Skin: COMMON NORMALS: no rashes or lesions noted GENERAL SKIN EXAM: no rashes or lesions noted TRAUMA: no lacerations or abrasions Course Vital Signs: Vital signs: Vital Signs Temperature 98.3 F 02/03/24 11:41 Pulse Rate 86 02/03/24 11:41 Blood Pressure 152/61 02/03/24 11:41 Pulse Oximetry 95 02/03/24 11:41 Oxygen Delivery Me thod Room Air 02/03/24 11:41 MDM - Fall Medical Decision Making CT head/cervical/facial negative. Patient will be allowed discharge with return precautions. Medical Records I reviewed the patient's medical records. Lab Data Radiology Impressions Cervical Spine CT 02/03/24 11:35 IMPRESSION: 1. No acute cervical spine fracture. 2. Moderate degenerative disc disease at C5-6. Head CT 02/03/24 11:35 IMPRESSION: Stable noncontrast head CT. No acute fractures and no intracranial hemorrhage. Face CT 02/03/24 11:48 IMPRESSION: 1. No facial bone fracture. 2. No soft tissue hematoma. All radiology interpretation(s) finalized by discharge Discharge Plan Discharge Patient Disposition: Home Clinical Impression: Fall Qualifiers: Encounter type: initial encounter Qualified Code(s): W19.XXXA - Unspecified fall, initial encounter Contusion of face Qualifiers: Encounter type: initial encounter Qualified Code(s): S00.83XA - Contusion of other part of head, initial encounter Condition: Stable Prescriptions: No Action (DME) Diabetic Shoes with Custom insoles See Rx Instructions .Route .MEDSUPPLY Qty: 1 0RF Rx Instructions: As directed (DME) AFO to left See Rx Instructions .Route .MEDSUPPLY Qty: 1 0RF Rx Instructions: As directed by [facility] bupropion HCl 300 mg tablet extended release 24 hr 300 mg PO QAM Qty: 30 2RF buspirone 10 mg tablet 10 mg PO BID Qty: 60 2RF fluoxetine 40 mg capsule 40 mg PO QAM Qty: 30 2RF trazodone 100 mg tablet 400 mg PO .HS PRN (Reason: insomnia) Qty: 120 2RF atorvastatin 40 mg tablet 40 mg PO QAM Qty: 90 2RF nitroglycerin [Nitrostat] 0.4 mg tablet, sublingual 0.4 mg SUBLINGUAL Q5M PRN (Reason: Chest Pain) Qty: 25 2RF Rx Instructions: do not exceed 3 doses per episode (DME) Dexcom G7 Sensor Device See Rx Instructions .ROUTE .COMPLEX Qty: 9 1RF Dose Instruction: CHANGE every 10 DAYS Rx Instructions: CHANGE every 10 DAYS Tresiba FlexTouch U-200 200 unit/mL (3 mL) insulin pen See Rx Instructions .ROUTE .COMPLEX Qty: 9 2RF Dose Instruction: INJECT 40 UNITS SUBCUTANEOUSLY AT BEDTIME Rx Instructions: INJECT 40 UNITS SUBCUTANEOUSLY AT BEDTIME Mounjaro 15 mg/0.5 mL pen injector See Rx Instructions .ROUTE .COMPLEX Qty: 2 2RF Dose Instruction: inject 15mg (0.5ml) SUBCUTANEOUSLY EVERY 7 DAYS Rx Instructions: inject 15mg (0.5ml) SUBCUTANEOUSLY EVERY 7 DAYS levothyroxine 88 mcg tablet 88 mcg PO QAM gabapentin 100 mg capsule 100 mg PO BID hydrocortisone [Procto-Med HC] 2.5 % cream with perineal applicator See Rx Instructions .ROUTE .COMPLEX Rx Instructions: APPLY THIN LAYER TO AFFECTED AREA TWO TO FOUR TIMES A DAY. isosorbide mononitrate 30 mg tablet extended release 24 hr See Rx Instructions .ROUTE .COMPLEX Qty: 30 1RF Rx Instructions: Take 30 mg daily, do not take on dialysis days lorazepam 1 mg Tablet 1 mg PO Q8H PRN (Reason: SEVER NAUSEA) ranolazine 500 mg tablet extended release 12 hr 500 mg PO BID bumetanide 2 mg tablet 2 mg PO BID (DME) Dexcom G7 Asset Accountant Misc MISCELLANEOUS diphenhydramine HCl [Benadryl Allergy] 25 mg Tablet 50 mg PO DAILY PRN (Reason: Allergy Symptoms) insulin lispro [Humalog KwikPen Insulin] 100 unit/mL insulin pen See Rx Instructions .ROUTE .COMPLEX Rx Instructions: Sliding scale subcutaneously twice a day as needed. Trulicity 1.5 mg/0.5 mL pen injector 1.5 mg SUBCUT Q7D RenaPlex-D 800 mcg-12.5 mg -2,000 unit tablet 1 tab PO DAILY aspirin 81 mg Tablet,Delayed Release (Dr/Ec) 81 mg PO DAILY Qty: 90 3RF Eliquis 2.5 mg tablet 2.5 mg PO BID Qty: 60 2RF carvedilol 6.25 mg tablet 6.25 mg PO BID Qty: 90 0RF clopidogrel 75 mg tablet 75 mg PO DAILY Qty: 90 4RF morphine 15 mg tablet 15 mg PO BID PRN (Reason: pain) Qty: 5 0RF Discharge Orders: Discharge ED (Routine); Ordered 02/03/24 Ordered By: Ellen Nath Coding Level of Care Code ED Residential Door Installer for Aaron Irene
[2024-02-03 16:54] VITALS: BP 145/100; PULSE 73; RESP 16; O2SAT 93
== END 2024-02-03 16:55 | disposition home or self-care (01) ==
PROVIDERS: Emergency Provider Physician Assistant
DX: S00.83XA Contusion of other part of head, initial encounter (principal); Z79.4 Long term (current) use of insulin; Z79.85 Long-term (current) use of injectable non-insulin antidiabetic drugs; Z79.02 Long term (current) use of antithrombotics/antiplatelets; Z79.82 Long term (current) use of aspirin; Z79.01 Long term (current) use of anticoagulants; E11.22 Type 2 diabetes mellitus with diabetic chronic kidney disease; I13.2 Hypertensive heart and chronic kidney disease with heart failure and with stage 5 chronic kidney disease, or end stage renal disease; I50.9 Heart failure, unspecified; N18.6 End stage renal disease; I25.5 Ischemic cardiomyopathy; I25.10 Atherosclerotic heart disease of native coronary artery without angina pectoris; E78.5 Hyperlipidemia, unspecified; I25.2 Old myocardial infarction; W01.0XXA Fall on same level from slipping, tripping and stumbling without subsequent striking against object, initial encounter
CPT/HCPCS: 70450; 70486; 72125; 99284

== ENCOUNTER → 2024-02-26 06:57 | Outpatient (BNVA) | payer MEDICARE, SELFPAY | PROVIDERS: Visit Provider Podiatrist Foot & Ankle Surgery | DX: E11.42 Type 2 diabetes mellitus with diabetic polyneuropathy (principal); M20.42 Other hammer toe(s) (acquired), left foot; M21.372 Foot drop, left foot; M21.41 Flat foot [pes planus] (acquired), right foot; M21.42 Flat foot [pes planus] (acquired), left foot; N18.9 Chronic kidney disease, unspecified; Z79.4 Long term (current) use of insulin | CPT/HCPCS: 28010; 28011 ==

== ENCOUNTER 2024-03-09 10:09 | Oncology outpatient (recurring) (ONCR) | payer MEDICARE, SELFPAY | END 2024-03-19 23:59 | disposition home or self-care (01) | PROVIDERS: Visit Provider Internal Medicine | DX: Z45.2 Encounter for adjustment and management of vascular access device (principal) | CPT/HCPCS: 96523 ==

== ENCOUNTER → 2024-03-18 08:33 | Outpatient (BNVA) | payer OTHER, SELFPAY | PROVIDERS: Visit Provider Psychiatry & Neurology Psychiatry | DX: F33.2 Major depressive disorder, recurrent severe without psychotic features (principal) | CPT/HCPCS: 80061; 83036 ==

== ENCOUNTER 2024-03-24 07:10 | Inpatient (IN) | payer MEDICARE, SELFPAY ==
[2024-03-20 13:31] VITALS: BP 125/53; BMI 35.0
[2024-03-24] VITALS (40 sets, daily range): BP systolic 121–180; BP diastolic 53–91; PULSE 64–173; RESP 14–23; TEMP 36.7–36.9; O2SAT 86–97
--- NOTE | 2024-03-24 07:12 | XR_ITS ---
WS: [id number] XR chest 1V portable [id number] REASON FOR EXAM: dyspnea/cough FINDINGS: The chest appears unchanged compared to 01/21/2024. Left chemotherapy infusion port with left clavian vein infusion catheter. Previous sternotomy. Minimal tortuosity of the thoracic aorta and normal heart size. No acute pulmonary parenchymal or pleural abnormality. No lung nodule or lung mass. Mild to moderate degenerative spondylosis in the thoracic spine. XR/XR chest 1V portable [id number] IMPRESSION: Stable chest without acute abnormality.
--- NOTE | 2024-03-24 07:14 | ECG_ITS ---
[employer] [facility] Test Date: 2024-03-24 Pat Name: Rei Queen Department: Room: Gender: Male Advisory Application Developer: : [id number] Requested By: Timo Hart Order Number: [id number] Becky MD: Karen Choi M.D. Measurements Intervals [place] Rate: 87 P: 60 CA: 180 QRS: 80 QRSD: 114 T: 38 QT: 406 QTc: 490 Interpretive Statements SINUS RHYTHM WITH OCCASIONAL VENTRICULAR PREMATURE COMPLEXES POSSIBLE ANTERIOR MYOCARDIAL INFARCTION , OF INDETERMINATE AGE [30 ms Q WAVE IN V3/V4, OR R < 0.2 mV IN V4] Compared to ECG 01/21/2024 13:54:46 Ventricular premature complex(es) now present Sinus tachycardia no longer present Left-axis deviation no longer present Myocardial infarct finding still present Electronically Signed On 03-26-2024 21:58:39 BATCH UNIT TREATER by Karen Choi M.D. [email or web address]
--- NOTE | 2024-03-24 07:20 | ED_ITS ---
HPI - Chest Pain 2 General: Chief Complaint: Chest Pain Stated Complaint: Cp, SOB Time Seen by Provider: 03/24/24 07:12 History of Present Illness: 53-year-old male presents emergency room complaining of chest pain. Patient reports chest pain an hour and a half prior to arriving to the emergency room he was woken up by the pain. He states it radiates into his neck left arm and into his back. Patient has had multiple angiograms and has had multiple stents. He is in end-stage renal disease he is due for dialysis today. Patient states he did take nitro 2 tablets prior to arrival of EMS which improved his pain significantly. Associated symptoms: Deny abdominal pain, dyspnea or fever(s) Related Data Home Medications Medication Instructions Recorded Confirmed levothyroxine 88 mcg tablet 88 mcg PO QAM 02/09/21 03/24/24 bumetanide 2 mg tablet 2 mg PO BID 08/16/22 03/24/24 blood-glucose meter,continuous 02/27/23 03/24/24 (Dexcom G7 Coping Machine Assembler) diphenhydramine HCl 25 mg tablet 50 mg PO DAILY PRN Allergy Symptoms 05/02/23 03/24/24 (Benadryl Allergy) insulin lispro 100 unit/mL See Rx Instructions .Route .COMPLEX 05/02/23 03/24/24 subcutaneous pen (Humalog KwikPen (U-100) Insulin) gabapentin 100 mg capsule 100 mg PO BID 07/07/23 03/24/24 hydrocortisone 2.5 % topical cream See Rx Instructions .Route .COMPLEX 10/01/23 03/24/24 with perineal applicator (Procto-Med HC) lorazepam 1 mg tablet 1 mg PO Q8H PRN SEVER NAUSEA 10/24/23 03/24/24 ranolazine 500 mg tablet,extended 500 mg PO BID 10/24/23 03/24/24 release,12 hr vit B,C-folic ac 800 mcg-zinc 12.5 1 tab PO DAILY 10/29/23 03/24/24 mg-selen-D3 2,000 unit-vit E tablet (RenaPlex-D) nifedipine 30 mg tablet,extended 30 mg PO DAILY 03/18/24 03/24/24 release promethazine 25 mg tablet 25 mg PO Q6H 03/24/24 03/24/24 tamsulosin 0.4 mg capsule 0.4 mg PO DAILY 03/24/24 03/24/24 tizanidine 2 mg tablet 2 mg PO BID 03/24/24 03/24/24 Previous Rx's Medication Instructions Recorded atorvastatin 40 mg tablet 40 mg PO QAM #90 tabs 10/25/22 AFO to left #1 ea 07/25/23 Diabetic Shoes with Custom insoles #1 ea 07/25/23 nitroglycerin 0.4 mg sublingual 0.4 mg sublingual Q5M PRN Chest 08/27/23 tablet (Nitrostat) Pain #25 tabs isosorbide mononitrate 30 mg See Rx Instructions .Route 10/03/23 tablet,extended release 24 hr .COMPLEX #30 tabs apixaban 2.5 mg tablet (Eliquis) 2.5 mg PO BID #60 tabs 10/30/23 aspirin 81 mg tablet,delayed 81 mg PO DAILY #90 tabs 10/30/23 release carvedilol 6.25 mg tablet 6.25 mg PO BID #90 tabs 10/30/23 clopidogrel 75 mg tablet 75 mg PO DAILY #90 tabs 10/30/23 blood-glucose sensor (Dexcom G7 #9 ea 11/25/23 Sensor device) insulin degludec 200 unit/mL (3 See Rx Instructions .Route 12/04/23 mL) subcutaneous pen (Tresiba .COMPLEX #9 mL FlexTouch U-200 insulin) tirzepatide 15 mg/0.5 mL See Rx Instructions .Route 12/30/23 subcutaneous pen injector .COMPLEX #2 mL (Mounjaro) bupropion HCl 300 mg 24 hr tablet, 300 mg PO QAM #30 tabs 01/22/24 extended release buspirone 10 mg tablet 10 mg PO BID #60 tabs 01/22/24 fluoxetine 40 mg capsule 40 mg PO QAM #30 caps 01/22/24 trazodone 100 mg tablet 400 mg (4 x 100 mg) PO .HS PRN 01/22/24 insomnia #120 tabs Allergies Allergy/AdvReac Type Severity Reaction Status Date / Time Iodinated Contrast Media Allergy Severe ALGY-Difficulty Verified 03/18/24 08:34 Breathing iodine Allergy Severe ALGY-Difficulty Verified 03/18/24 08:34 Breathing metoclopramide [From Reglan] Allergy Severe ALGY-Difficulty Verified 03/18/24 08:34 Breathing nalbuphine [From Nubain] Allergy Severe ADR-Diarrhe Verified 03/18/24 08:34 a naproxen [From Naprosyn] Allergy Severe ADR-Vomitin Verified 03/18/24 08:34 g Sulfa (Sulfonamide Allergy Severe ALGY-Difficulty Verified 03/18/24 08:34 Antibiotics) Breathing ketorolac Allergy Intermediate ADR-Nausea Verified 03/18/24 08:34 ondansetron [From Zofran] Allergy Intermediate ADR-Abdominal Verified 03/18/24 08:34 Pain prochlorperazine Allergy Intermediate ADR-Irritab Verified 03/18/24 08:34 [From Compazine] le codeine AdvReac Severe ALGY-Anaphy Verified 03/18/24 08:34 laxis haloperidol [From Haldol] AdvReac Intermediate ADR-Irritab Verified 03/18/24 08:34 le Review of Systems 2 Const: Denies: fever(s) or chills Card: Reports: chest pain Resp: Denies: dyspnea GI: Denies: abdominal pain : Denies: dysuria, urinary frequency or urinary urgency Musc: Denies: neck pain or back pain Skin/Breast: Denies: rash PFSH ED 2 PFSH: Medical History Essential hypertension Essential hypertension ESRD (end stage renal disease) Hypertension Psychiatric care 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 mellitus Chronic renal failure Chest pain Chest pain CRF (chronic renal failure) Chronic right SI joint pain Chronic systolic heart failure UTI (urinary tract infection) Peripheral arterial disease PVD (peripheral vascular disease) Worsening angina Elevated troponin Angina at rest Chest pain ESRD (end stage renal disease) Uremic encephalopathy Generalized anxiety disorder ESRD (end stage renal disease) D-dimer, elevated Acute on chronic congestive heart failure History of pulmonary embolism Diabetes Acute kidney injury superimposed on CKD GERD (gastroesophageal reflux disease) Alcohol use disorder, moderate, in sustained remission Major depressive disorder, recurrent severe without psychotic features DVT (deep venous thrombosis) (~03/2020) Proximal left subclavian, basilic and brachial veins, started eliquis this stay, felt present prior to admission Chronic kidney disease -baseline Cr appears to be around 1.5 Atherosclerotic heart disease of [place] coronary artery with other forms of angina pectoris hx of CAD with prior stenting of proximal LAD, LCx, RCA Ischemic cardiomyopathy Onychodystrophy Chronic anticoagulation Eliquis Osteoarthritis of spine Hypothyroidism Hypertension Hyperlipidemia Diabetes Depression Anemia Foot drop, left H/O acute myocardial infarction H/O deep venous thrombosis developed compartment syndrome Surgical History Peritoneal dialysis catheter in situ (06/15/21) History of appendectomy 1995 History of excision of mass 06/08/2019: Subcutaneous mass on back History of removal of Port-a-Cath Port-A-Cath in place H/O vasectomy Hx of cholecystectomy History of coronary artery stent placement 5x H/O skin graft History of inguinal hernia repair, bilateral 2000 H/O removal of testicle left H/O colonoscopy (11/14/20) 08/2015 H/O esophagogastroduodenoscopy (11/14/20) 08/2015 Family History Grandfather Cancer skin cancer Parkinson disease Brother Hypertension Father Heart disease Mother Hypertension Stroke Aneurysm Grandmother Aneurysm Other Crohn's disease Denies family history of Anesthesia complication Bleeding disorder Social History Smoking and tobacco/nicotine status: never used tobacco/nicotine Second hand smoke exposure: No Alcohol intake: former Year of sobriety/quit date alcohol: 2015 Former alcohol use details: Only holidays - last use 05.19.2015 Substance/Drug Use: never Adopted: No Caregiver/support person: No Lives independently: Yes Household members: spouse Housing: Apartment Marital status: Number of children: 2 Number of grandchildren: 0 Highest education level completed: High School Graduate service: No Current occupational status: disabled Pets and animals: Yes Pets & animals: dog(s) Leisure activites: games and other Leisure activities details: watching TV Sexually active: Yes Do you think of yourself as: Straight/Heterosexual Current gender identity: Male Shannon/Jainism: Mandaen Special shannon needs: No Agree to transfusion: Yes Physical Exam 2 Const: GENERAL APPEARANCE: cooperative ORIENTATION/CONSCIOUSNESS: Yes awake, Yes oriented to person, Yes oriented to place and Yes oriented to time HENMT: COMMON NORMALS: normocephalic, atraumatic and hearing grossly normal bilaterally HEAD & SCALP: normocephalic and atraumatic Resp: COMMON NORMALS: normal respiratory effort, No retractions, No use of accessory muscles and clear to auscultation bilaterally AUSCULTATION: clear to auscultation bilaterally Cardio: COMMON NORMALS: regular rate, regular rhythm and No murmurs present (Cardio) RATE: regular rate RHYTHM: regular rhythm GI: COMMON NORMALS: Soft to palpation and No hepatosplenomegaly present A USCULTATION: Yes normoactive bowel sounds PALPATION: Yes Soft to palpation, No Tenderness to palpation present (GI), No Guarding due to palpation present (GI) and Yes No hepatosplenomegaly present Extremity: COMMON NORMALS: normal to inspection, capillary refill normal, no clubbing, cyanosis or edema, no calf tenderness and no pedal edema Neuro: SENSORIUM/ORIENTATION: Yes oriented to person, Yes oriented to place and Yes oriented to time Skin: COMMON NORMALS: no rashes or lesions noted GENERAL SKIN EXAM: no rashes or lesions noted Course 2 Vital Signs: Vital signs: Vital Signs Temperature 98.0 F 03/26/24 04:00 Pulse Rate 68 03/26/24 05:36 Respiratory Rate 19 H 03/26/24 04:00 Blood Pressure 100/50 03/26/24 04:00 Pulse Oximetry 95 03/26/24 04:00 Oxygen Delivery Me thod Nasal Cannula 03/26/24 04:00 Oxygen Flow Rate 2 03/25/24 04:00 MDM - Chest Pain Medical Decision Making Patient has persistent chest pain switch from topical to IV nitro. Will admit. He said he was post have a fistulogram and he had stopped his Plavix and his anticoagulant which may be part of this. Will consult cardiology and nephrology. Hospitalist is reinitiating anticoagulation. Medical Records I reviewed the patient's medical records. Lab Data I reviewed the patient's lab results. 03/26/24 01:49 03/26/24 01:49 Radiology Impressions Chest X-Ray 03/24/24 07:12 IMPRESSION: Stable chest without acute abnormality. Laboratory Results WBC 6.52 10^3/uL (3.29-11.43) 03/24/24 07:30 RBC 3.32 10^6/uL (3.85-5.65) L 03/24/24 07:30 Hgb 11.00 g/dL (11.27-16.99) L 03/24/24 07:30 Hct 32.0 % (37-53) L 03/24/24 07:30 MCV 96.4 fl (82-101) 03/24/24 07:30 MCH 33.1 pg (27-33) H 03/24/24 07:30 MCHC 34.4 g/dL (30-55) 03/24/24 07:30 RDW 13.2 % (12.1-15.1) 03/24/24 07:30 Plt Count 269 10^3/cmm (157-399) 03/24/24 07:30 MPV 9.6 fL (7.4-10.4) 03/24/24 07:30 Neut % (Auto) 68.5 % 03/24/24 07:30 Lymph % (Auto) 18.3 % 03/24/24 07:30 Campbell % (Auto) 9.8 % 03/24/24 07:30 Eos % (Auto) 2.0 % 03/24/24 07:30 Baso % (Auto) 1.1 % 03/24/24 07:30 Neut # (Auto) 4.47 10^3/uL (1.8-7.7) 03/24/24 07:30 Lymph # (Auto) 1.2 10^3/uL (0.8-4.8) 03/24/24 07:30 Campbell # (Auto) 0.6 10^3/uL (0.2-0.9) 03/24/24 07:30 Eos # (Auto) 0.1 10^3/uL (0.0-0.8) 03/24/24 07:30 Baso # (Auto) 0.1 10^3/uL (0.0-0.1) 03/24/24 07:30 Nucleated RBC % (auto) 0 % 03/24/24 07:30 Nucleated RBCs # 0.0 /100WBC 03/24/24 07:30 Sodium 137 mmol/L (136-145) 03/24/24 08:14 Potassium 3.4 mmol/L (3.5-5.1) L 03/24/24 08:14 Chloride 99 mmol/L (98-107) 03/24/24 08:14 Carbon Dioxide 24 mmol/L (22-29) 03/24/24 08:14 Anion Gap 17.4 (5-19) 03/24/24 08:14 BUN 23 mg/dL (6-20) H 03/24/24 08:14 Creatinine 4.3 mg/dL (0.7-1.2) H 03/24/24 08:14 GFR Calculation 14.4 mL/min (90-130) L 03/24/24 08:14 Glucose 208 mg/dL (65-115) H 03/24/24 08:14 Calculated Osmolality 294 mOsm/kg (285-295) 03/24/24 08:14 Calcium 8.6 mg/dL (8.5-10.5) 03/24/24 08:14 Total Bilirubin 1.0 mg/dL (0.15-1.2) 03/24/24 08:14 AST 21 U/L (0-40) 03/24/24 08:14 ALT 14 U/L (0-41) 03/24/24 08:14 Alkaline Phosphatase 101 U/L (40-130) 03/24/24 08:14 Troponin T Baseline Cancelled 03/24/24 08:14 Troponin T 120 Minute 75.44 ng/L (0-15) H 03/24/24 09:21 Delta Troponin T -1.56 ABS# (0-10) L 03/24/24 09:21 Troponin T Hi Sens 6Hr 75.73 ng/L (0-15) H 03/24/24 13:33 Troponin T Hi Sens 6Hr Delta -1.27 ng/L (0-12) L 03/24/24 13:33 Total Protein 5.6 g/dL (6.6-8.7) L 03/24/24 08:14 Albumin 3.8 g/dL (3.5-5.2) 03/24/24 08:14 Globulin 1.8 g/dL (1.3-4.6) 03/24/24 08:14 Hep Bs Antigen Non-reactive (Nonreactive) 03/24/24 13:33 Hep Bs Antibody 434.5 (11.5-1000) 03/24/24 13:33 Hepatitis C Antibody Non-reactive (Nonreactive) 03/24/24 13:33 All radiology interpretation(s) finalized by discharge Discharge Plan Discharge Patient Disposition: Admitted As Inpatient Admit Provider: Rojas Garcia Clinical Impression: Unstable angina pectoris, 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 mellitus, ESRD (end stage renal disease), Essential hypertension, Ischemic cardiomyopathy Condition: Stable Coding Level of Care Code ED Mobile Solutions Architect for Aaron Irene
[2024-03-24 07:38] LABS: Basophils # 0.1 10^3/uL (0.0-0.1); Basophils % 1.1 %; Eosinophils # 0.1 10^3/uL (0.0-0.8); Lymphocytes # 1.2 10^3/uL (0.8-4.8); Lymphocytes % 18.3 %; Mean Corpuscular HGB Conc 34.4 g/dL (30-55); Mean Corpuscular Hemoglobin 33.1 pg (27-33); Mean Corpuscular Volume 96.4 fl (82-101); Mean Platelet Volume 9.6 fL (7.4-10.4); Monocytes # 0.6 10^3/uL (0.2-0.9); Monocytes % 9.8 %; Neutrophils # 4.47 10^3/uL (1.8-7.7); Neutrophils % 68.5 %; Nucleated Red Blood Cells % 0 %; Platelet Count 269 10^3/cmm (157-399); Red Blood Count 3.32 10^6/uL (3.85-5.65); Red Cell Distribution Width 13.2 % (12.1-15.1); White Blood Count 6.52 10^3/uL (3.29-11.43)
[2024-03-24 07:57] LABS: Troponin(5th) Baseline 77 ng/L (0-15)
[2024-03-24] MEDS: LORazepam 2 mg Tablet PO (08:30)
[2024-03-24 08:42] LABS: Alanine Aminotransferase 14 U/L (0-41); Albumin Level 3.8 g/dL (3.5-5.2); Alkaline Phosphatase 101 U/L (40-130); Blood Urea Nitrogen 23 mg/dL (6-20); Calcium 8.6 mg/dL (8.5-10.5); Carbon Dioxide 24 mmol/L (22-29); Chloride 99 mmol/L (98-107); Globulin 1.8 g/dL (1.3-4.6); Glomerular Filtration Rate 14.4 mL/min (90-130); Glucose 208 mg/dL (65-115); Osmolality Calculated 294 mOsm/kg (285-295); Sodium 137 mmol/L (136-145); Total Protein 5.6 g/dL (6.6-8.7)
[2024-03-24 08:43] LABS: Anion Gap 17.4 (5-19); Aspartate Amino Transferase 21 U/L (0-40); Potassium 3.4 mmol/L (3.5-5.1)
--- NOTE | 2024-03-24 09:12 | ECG_ITS ---
[facility] Test Date: 2024-03-24 Pat Name: Rei Queen Department: Room: Gender: Male Food Production Supervisor: : 1970 Requested By: Timo Hart Order Number: [id number] Becky MD: SALIMA HYDE Measurements Intervals [place] Rate: 84 P: 67 [place]: 211 QRS: 73 QRSD: 109 T: 45 QT: 407 QTc: 483 Interpretive Statements SINUS RHYTHM WITH FIRST DEGREE AV BLOCK POSSIBLE ANTERIOR MYOCARDIAL INFARCTION , OF INDETERMINATE AGE [30 ms Q WAVE IN V3/V4, OR R < 0.2 mV IN V4] Compared to ECG 03/24/2024 07:14:39 First degree AV block now present Ventricular premature complex(es) no longer present Myocardial infarct finding still present Electronically Signed On 03-27-2024 00:40:21 ELEMENTARY READING TUTOR by SALIMA HYDE [email or web address]
--- NOTE | 2024-03-24 09:30 | PC.NURSE ---
assumed care of pt at 0930
[2024-03-24 09:48] LABS: Troponin 5 2HR 75.44 ng/L (0-15)
[2024-03-24 09:50] LABS: Troponin 5 2HR Delta -1.56 ABS# (0-10)
[2024-03-24] MEDS: nitroglycerin 1 gm/inch oint Pkt 1 INCH TOPICAL (10:54)
--- NOTE | 2024-03-24 12:35 | P.HP_ITS ---
Providers/Chief Complaint 2 Admitting Physician: Rojas Garcia MD, hospitalist Chief Complaint: Cp, SOB History of Present Illness Rei Queen II is a 53 year old male with known coronary disease, end-stage renal disease, history of pulmonary embolism, diabetes, multiple other diagnoses who presents today with complaints of chest discomfort since this morning around 6 AM. He believes it awoke him from sleep. States it radiates into his left neck and left arm. He reports nitroglycerin helped when taken at home, and he had 2. He reports the pain might be a little bit better now that he has nitroglycerin ointment on his chest, and describes it 08/27. He reports it is an ache, and he feels a little dizzy, short of breath, and nauseous with it. No vomiting, recent fevers, cough. Reports he has not missed any medicine other than his Eliquis, Plavix, aspirin which is on hold for a fistulogram on Saturday. He has not taken these medicines for at least 2 days. Note that his last angiogram with drug-eluting stent was in October. He reports they are checking his fistula out as he bleeds a lot following dialysis. No blood in stool, black or tarry stool. Denies any shortness of breath right now. In the emergency department he was placed on a nitroglycerin drip, following Nitropaste. He received some Ativan and morphine. Review of Systems 2 General: Reports: 10 or more systems reviewed and unremarkable except in HPI and below Card: Reports: chest pain; Denies: swelling of feet/ankles Resp: Denies: dyspnea GI: Reports: nausea; Denies: abdominal pain or vomiting Medications/Allergies Home Medications Medication Instructions Recorded Confirmed Last Taken Type levothyroxine 88 mcg tablet 88 mcg PO QAM 02/09/21 03/24/24 03/23/24 History bumetanide 2 mg tablet 2 mg PO BID 08/16/22 03/24/24 03/23/24 History atorvastatin 40 mg tablet 40 mg PO QAM #90 tabs 10/25/22 03/24/24 03/23/24 Rx blood-glucose meter,continuous 02/27/23 03/24/24 03/15/23 History (Dexcom G7 Swing Grinder) diphenhydramine HCl 25 mg tablet 50 mg PO DAILY PRN Allergy Symptoms 05/02/23 03/24/24 03/23/24 History (Benadryl Allergy) insulin lispro 100 unit/mL See Rx Instructions .Route .COMPLEX 05/02/23 03/24/24 03/23/24 History subcutaneous pen (Humalog KwikPen (U-100) Insulin) gabapentin 100 mg capsule 100 mg PO BID 07/07/23 03/24/24 03/23/24 History AFO to left #1 ea 07/25/23 03/24/24 Unknown Rx Diabetic Shoes with Custom insoles #1 ea 07/25/23 03/24/24 Unknown Rx nitroglycerin 0.4 mg sublingual 0.4 mg sublingual Q5M PRN Chest 08/27/23 03/24/24 Unknown Rx tablet (Nitrostat) Pain #25 tabs hydrocortisone 2.5 % topical cream See Rx Instructions .Route .COMPLEX 10/01/23 03/24/24 Unknown History with perineal applicator (Procto-Med HC) isosorbide mononitrate 30 mg See Rx Instructions .Route 10/03/23 03/24/24 03/23/24 Rx tablet,extended release 24 hr .COMPLEX #30 tabs lorazepam 1 mg tablet 1 mg PO Q8H PRN SEVER NAUSEA 10/24/23 03/24/24 03/23/24 History ranolazine 500 mg tablet,extended 500 mg PO BID 10/24/23 03/24/24 03/23/24 History release,12 hr vit B,C-folic ac 800 mcg-zinc 12.5 1 tab PO DAILY 10/29/23 03/24/24 03/23/24 History mg-selen-D3 2,000 unit-vit E tablet (RenaPlex-D) apixaban 2.5 mg tablet (Eliquis) 2.5 mg PO BID #60 tabs 10/30/23 03/24/24 03/23/24 Rx aspirin 81 mg tablet,delayed 81 mg PO DAILY #90 tabs 10/30/23 03/24/24 03/23/24 Rx release carvedilol 6.25 mg tablet 6.25 mg PO BID #90 tabs 10/30/23 03/24/24 03/23/24 Rx clopidogrel 75 mg tablet 75 mg PO DAILY #90 tabs 10/30/23 03/24/24 03/23/24 Rx blood-glucose sensor (Dexcom G7 #9 ea 11/25/23 03/24/24 Unknown Rx Sensor device) insulin degludec 200 unit/mL (3 See Rx Instructions .Route 12/04/23 03/24/24 03/23/24 Rx mL) subcutaneous pen (Tresiba .COMPLEX #9 mL FlexTouch U-200 insulin) tirzepatide 15 mg/0.5 mL See Rx Instructions .Route 12/30/23 03/24/24 03/20/24 Rx subcutaneous pen injector .COMPLEX #2 mL (Mounjaro) bupropion HCl 300 mg 24 hr tablet, 300 mg PO QAM #30 tabs 01/22/24 03/24/24 03/23/24 Rx extended release buspirone 10 mg tablet 10 mg PO BID #60 tabs 01/22/24 03/24/24 03/23/24 Rx fluoxetine 40 mg capsule 40 mg PO QAM #30 caps 01/22/24 03/24/24 03/23/24 Rx trazodone 100 mg tablet 400 mg (4 x 100 mg) PO .HS PRN 01/22/24 03/24/24 03/23/24 Rx insomnia #120 tabs nifedipine 30 mg tablet,extended 30 mg PO DAILY 03/18/24 03/24/24 03/23/24 History release promethazine 25 mg tablet 25 mg PO Q6H 03/24/24 03/24/24 Unknown History tamsulosin 0.4 mg capsule 0.4 mg PO DAILY 03/24/24 03/24/24 Unknown History tizanidine 2 mg tablet 2 mg PO BID 03/24/24 03/24/24 Unknown History Allergies Allergy/AdvReac Type Severity Reaction Status Date / Time Iodinated Contrast Media Allergy Severe ALGY-Difficulty Verified 03/18/24 08:34 Breathing iodine Allergy Severe ALGY-Difficulty Verified 03/18/24 08:34 Breathing metoclopramide [From Reglan] Allergy Severe ALGY-Difficulty Verified 03/18/24 08:34 Breathing nalbuphine [From Nubain] Allergy Severe ADR-Diarrhe Verified 03/18/24 08:34 a naproxen [From Naprosyn] Allergy Severe ADR-Vomitin Verified 03/18/24 08:34 g Sulfa (Sulfonamide Allergy Severe ALGY-Difficulty Verified 03/18/24 08:34 Antibiotics) Breathing ketorolac Allergy Intermediate ADR-Nausea Verified 03/18/24 08:34 ondansetron [From Zofran] Allergy Intermediate ADR-Abdominal Verified 03/18/24 08:34 Pain prochlorperazine Allergy Intermediate ADR-Irritab Verified 03/18/24 08:34 [From Compazine] le codeine AdvReac Severe ALGY-Anaphy Verified 03/18/24 08:34 laxis haloperidol [From Haldol] AdvReac Intermediate ADR-Irritab Verified 03/18/24 08:34 le PFSH Acute 2 PFSH: Medical History (Updated 03/24/24 @ 13:03 by Rojas Garcia MD) ESRD (end stage renal disease) Hypertension Psychiatric care 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 mellitus Chronic renal failure Chest pain Chest pain CRF (chronic renal failure) Chronic right SI joint pain Chronic systolic heart failure UTI (urinary tract infection) Peripheral arterial disease PVD (peripheral vascular disease) Worsening angina Elevated troponin Angina at rest Chest pain ESRD (end stage renal disease) Uremic encephalopathy Generalized anxiety disorder ESRD (end stage renal disease) D-dimer, elevated Acute on chronic congestive heart failure History of pulmonary embolism Diabetes Acute kidney injury superimposed on CKD GERD (gastroesophageal reflux disease) Alcohol use disorder, moderate, in sustained remission Major depressive disorder, recurrent severe without psychotic features DVT (deep venous thrombosis) (~03/2020) Proximal left subclavian, basilic and brachial veins, started eliquis this stay, felt present prior to admission Chronic kidney disease -baseline Cr appears to be around 1.5 Atherosclerotic heart disease of [place] coronary artery with other forms of angina pectoris hx of CAD with prior stenting of proximal LAD, LCx, RCA Ischemic cardiomyopathy Onychodystrophy Chronic anticoagulation Eliquis Osteoarthritis of spine Hypothyroidism Hypertension Hyperlipidemia Diabetes Depression Anemia Foot drop, left H/O acute myocardial infarction H/O deep venous thrombosis developed compartment syndrome Surgical History Peritoneal dialysis catheter in situ (06/15/21) History of appendectomy 1995 History of excision of mass 06/08/2019: Subcutaneous mass on back History of removal of Port-a-Cath Port-A-Cath in place H/O vasectomy Hx of cholecystectomy History of coronary artery stent placement 5x H/O skin graft History of inguinal hernia repair, bilateral 1999 H/O removal of testicle left H/O colonoscopy (11/14/20) 08/2015 H/O esophagogastroduodenoscopy (11/14/20) 08/2015 Family History Grandfather Cancer skin cancer Parkinson disease Brother Hypertension Father Heart disease Mother Hypertension Stroke Aneurysm Grandmother Aneurysm Other Crohn's disease Denies family history of Anesthesia complication Bleeding disorder Social History Smoking and tobacco/nicotine status: never used tobacco/nicotine Second hand smoke exposure: No Alcohol intake: former Year of sobriety/quit date alcohol: 2015 Former alcohol use details: Only holidays - last use 05.19.2015 Substance/Drug Use: never Adopted: No Caregiver/support person: No Lives independently: Yes Household members: spouse Housing: Apartment Marital status: Number of children: 2 Number of grandchildren: 0 Highest education level completed: High School Graduate service: No Current occupational status: disabled Pets and animals: Yes Pets & animals: dog(s) Leisure activites: games and other Leisure activities details: watching TV Sexually active: Yes Do you think of yourself as: Straight/Heterosexual Current gender identity: Male Shannon/Sabianist: Scientologist Special shannon needs: No Agree to transfusion: Yes Vitals/I&O/Wt Last Vital Signs Temp 98.1 F 03/24/24 07:11 Pulse 85 03/24/24 11:00 Resp 19 H 03/24/24 11:00 BP 156/78 03/24/24 11:00 Pulse Ox 94 03/24/24 11:00 O2 Del Method Room Air 03/24/24 11:00 Physical Exam 2 Narrative: General exam is a white male, no distress currently, with vital signs that appear stable HEENT: Atraumatic normocephalic. Oropharynx is clear Neck is supple no lymphadenopathy thyromegaly Cardiovascular regular rate and rhythm, no murmur Lungs clear no wheezing or crackles Abdomen is soft nontender positive bowel sounds. No obvious organomegaly exams deferred Extremities no cyanosis clubbing or edema, left upper extremity with thrill and bruit Skin without rash Neuro no obvious focal deficits Data 03/24/24 07:30 03/24/24 08:14 Other Labs: LFTs are normal Troponin 77 and repeat 75 Albumin and calcium are normal Chest x-ray no infiltrate. Port is noted left chest. Sternotomy wires noted. By my read EKG by my read demonstrates sinus rhythm, normal axis, poor R wave progression, nonspecific ST-T wave changes. A&P Assessment and plan (1) Chest pain: Patient presents with chest discomfort Concerning for unstable angina He stopped his aspirin, Plavix, and Eliquis 2 days ago in preparation for a fistulogram on Saturday at [facility]. He had his last drug-eluting stent in October. Will place him on full anticoagulation with a heparin drip Aspirin was given in ambulance Plavix, 300 mg load and then 75 mg daily Nitroglycerin drip Cardiology consult Most recent echocardiogram was September, demonstrating EF of 35 to 40%. At this point I will defer to cardiology should they choose to repeat this. He has no overt signs of heart failure at current exam time. Finish out serial troponins Dilaudid for breakthrough pain Qualifiers: Chest pain type: unspecified Qualified Code(s): R07.9 - Chest pain, unspecified (2) Ischemic cardiomyopathy: See above (3) ESRD (end stage renal disease): Patient with end-stage renal disease on hemodialysis Nephrology consultation His normal dialysis days are Saturday. Cardiology will determine if he is safe for dialysis today. (4) 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 mellitus: Patient with history of diabetes, with diabetic nephropathy and diabetic neuropathy Sliding scale insulin Consistent carb diet (5) Hypertension: Continue carvedilol, nifedipine Qualifiers: Hypertension type: primary hypertension Qualified Code(s): I10 - Essential (primary) hypertension Plan History of pulmonary embolism. Heparin drip Multiple other complaints as outlined in past medical history Full code currently Heparin will suffice for DVT prophylaxis Attestations 2 Medical Necessity Statement*: Will require less than 2 midnight stay for evaluation and treatment of chest discomfort without elevated troponin Diagnoses Chest pain R07.9 Chest pain type: unspecified Ischemic cardiomyopathy I25.5 ESRD (end stage renal disease) N18.6 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 mellitus E11.42 Primary hypertension I10 Hypertension type: primary hypertension Time Spent (min) 53
--- NOTE | 2024-03-24 12:49 | P.CONIM_ITS ---
Providers/Reason For Consult 2 Consulting Physician/Specialty*: rashaun stinson md / telenephrology Reason for Consult*: ESRD care Requesting Physician: Dr Keshawn zelaya Attending Physician: Dr Keshawn Zelaya History of Present Illness History of Present Illness Rei Queen II is a 53 year old male history of ESRD on dialysis Saturday via left upper extremity AV fistula. History of pulm embolism history of CAD history of diabetes mellitus. Known CAD with stents recent cardiac catheterization in October 2023. History of hypothyroidism hyperlipidemia, and peripheral vascular disease. History of hypertension anxiety. Patient presented today with shortness of breath chest pain dyspnea on exertion orthopnea and weakness. Renal called to see the patient for dialysis Review of Systems 2 Narrative: Weak short of breath dyspnea exertion orthopnea chest pain nausea Medications/Allergies Home Medications Medication Instructions Recorded Confirmed Last Taken Type levothyroxine 88 mcg tablet 88 mcg PO QAM 02/09/21 03/24/24 03/23/24 History bumetanide 2 mg tablet 2 mg PO BID 08/16/22 03/24/24 03/23/24 History atorvastatin 40 mg tablet 40 mg PO QAM #90 tabs 10/25/22 03/24/24 03/23/24 Rx blood-glucose meter,continuous 02/27/23 03/24/24 03/15/23 History (Dexcom G7 Senior Caregiver) diphenhydramine HCl 25 mg tablet 50 mg PO DAILY PRN Allergy Symptoms 05/02/23 03/24/24 03/23/24 History (Benadryl Allergy) insulin lispro 100 unit/mL See Rx Instructions .Route .COMPLEX 05/02/23 03/24/24 03/23/24 History subcutaneous pen (Humalog KwikPen (U-100) Insulin) gabapentin 100 mg capsule 100 mg PO BID 07/07/23 03/24/24 03/23/24 History AFO to left #1 ea 07/25/23 03/24/24 Unknown Rx Diabetic Shoes with Custom insoles #1 ea 07/25/23 03/24/24 Unknown Rx nitroglycerin 0.4 mg sublingual 0.4 mg sublingual Q5M PRN Chest 08/27/23 03/24/24 Unknown Rx tablet (Nitrostat) Pain #25 tabs hydrocortisone 2.5 % topical cream See Rx Instructions .Route .COMPLEX 10/01/23 03/24/24 Unknown History with perineal applicator (Procto-Med ) isosorbide mononitrate 30 mg See Rx Instructions .Route 10/03/23 03/24/24 03/23/24 Rx tablet,extended release 24 hr .COMPLEX #30 tabs lorazepam 1 mg tablet 1 mg PO Q8H PRN SEVER NAUSEA 10/24/23 03/24/24 03/23/24 History ranolazine 500 mg tablet,extended 500 mg PO BID 10/24/23 03/24/24 03/23/24 History release,12 hr vit B,C-folic ac 800 mcg-zinc 12.5 1 tab PO DAILY 10/29/23 03/24/24 03/23/24 History mg-selen-D3 2,000 unit-vit E tablet (RenaPlex-D) apixaban 2.5 mg tablet (Eliquis) 2.5 mg PO BID #60 tabs 10/30/23 03/24/24 03/23/24 Rx aspirin 81 mg tablet,delayed 81 mg PO DAILY #90 tabs 10/30/23 03/24/24 03/23/24 Rx release carvedilol 6.25 mg tablet 6.25 mg PO BID #90 tabs 10/30/23 03/24/24 03/23/24 Rx clopidogrel 75 mg tablet 75 mg PO DAILY #90 tabs 10/30/23 03/24/24 03/23/24 Rx blood-glucose sensor (Dexcom G7 #9 ea 11/25/23 03/24/24 Unknown Rx Sensor device) insulin degludec 200 unit/mL (3 See Rx Instructions .Route 12/04/23 03/24/24 03/23/24 Rx mL) subcutaneous pen (Tresiba .COMPLEX #9 mL FlexTouch U-200 insulin) tirzepatide 15 mg/0.5 mL See Rx Instructions .Route 12/30/23 03/24/24 03/20/24 Rx subcutaneous pen injector .COMPLEX #2 mL (Jennifer) bupropion HCl 300 mg 24 hr tablet, 300 mg PO QAM #30 tabs 01/22/24 03/24/24 03/23/24 Rx extended release buspirone 10 mg tablet 10 mg PO BID #60 tabs 01/22/24 03/24/2424 Rx fluoxetine 40 mg capsule 40 mg PO QAM #30 caps 01/22/24 03/24/24 03/23/24 Rx trazodone 100 mg tablet 400 mg (4 x 100 mg) PO .HS PRN 01/22/24 03/24/24 03/23/24 Rx insomnia #120 tabs nifedipine 30 mg tablet,extended 30 mg PO DAILY 03/18/24 03/24/24 03/23/24 History release promethazine 25 mg tablet 25 mg PO Q6H 03/24/24 03/24/24 Unknown History tamsulosin 0.4 mg capsule 0.4 mg PO DAILY 03/24/24 03/24/24 Unknown History tizanidine 2 mg tablet 2 mg PO BID 03/24/24 03/24/24 Unknown History Allergies Allergy/AdvReac Type Severity Reaction Status Date / Time Iodinated Contrast Media Allergy Severe ALGY-Difficulty Verified 03/18/24 08:34 Breathing iodine Allergy Severe ALGY-Difficulty Verified 03/18/24 08:34 Breathing metoclopramide [From Reglan] Allergy Severe ALGY-Difficulty Verified 03/18/24 08:34 Breathing nalbuphine [From Nubain] Allergy Severe ADR-Diarrhe Verified 03/18/24 08:34 a naproxen [From Naprosyn] Allergy Severe ADR-Vomitin Verified 03/18/24 08:34 g Sulfa (Sulfonamide Allergy Severe ALGY-Difficulty Verified 03/18/24 08:34 Antibiotics) Breathing ketorolac Allergy Intermediate ADR-Nausea Verified 03/18/24 08:34 ondansetron [From Zofran] Allergy Intermediate ADR-Abdominal Verified 03/18/24 08:34 Pain prochlorperazine Allergy Intermediate ADR-Irritab Verified 03/18/24 08:34 [From Compazine] le codeine AdvReac Severe ALGY-Anaphy Verified 03/18/24 08:34 laxis haloperidol [From Haldol] AdvReac Intermediate ADR-Irritab Verified 03/18/24 08:34 le PFSH Acute 2 PFSH: Medical History Psychiatric care 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 mellitus ESRD (end stage renal disease) Chronic renal failure Chest pain Chest pain CRF (chronic renal failure) Chronic right SI joint pain Chronic systolic heart failure UTI (urinary tract infection) Peripheral arterial disease PVD (peripheral vascular disease) Worsening angina Elevated troponin Hypertension Angina at rest Chest pain ESRD (end stage renal disease) Uremic encephalopathy Generalized anxiety disorder ESRD (end stage renal disease) D-dimer, elevated Acute on chronic congestive heart failure History of pulmonary embolism Diabetes Acute kidney injury superimposed on CKD GERD (gastroesophageal reflux disease) Alcohol use disorder, moderate, in sustained remission Major depressive disorder, recurrent severe without psychotic features DVT (deep venous thrombosis) (~03/2020) Proximal left subclavian, basilic and brachial veins, started eliquis this stay, felt present prior to admission Chronic kidney disease -baseline Cr appears to be around 1.5 Atherosclerotic heart disease of [place] coronary artery with other forms of angina pectoris hx of CAD with prior stenting of proximal LAD, LCx, RCA Ischemic cardiomyopathy Onychodystrophy Chronic anticoagulation Eliquis Osteoarthritis of spine Hypothyroidism Hypertension Hyperlipidemia Diabetes Depression Anemia Foot drop, left H/O acute myocardial infarction H/O deep venous thrombosis developed compartment syndrome Surgical History Peritoneal dialysis catheter in situ (06/15/21) History of appendectomy 1995 History of excision of mass 06/08/2019: Subcutaneous mass on back History of removal of Port-a-Cath Port-A-Cath in place H/O vasectomy Hx of cholecystectomy History of coronary artery stent placement 5x H/O skin graft History of inguinal hernia repair, bilateral 2000 H/O removal of testicle left H/O colonoscopy (11/14/20) 08/2015 H/O esophagogastroduodenoscopy (11/14/20) 08/2015 Family History Grandfather Cancer skin cancer Parkinson disease Brother Hypertension Father Heart disease Mother Hypertension Stroke Aneurysm Grandmother Aneurysm Other Crohn's disease Denies family history of Anesthesia complication Bleeding disorder Social History Smoking and tobacco/nicotine status: never used tobacco/nicotine Second hand smoke exposure: No Alcohol intake: former Year of sobriety/quit date alcohol: 2016 Former alcohol use details: Only holidays - last use 05.19.2015 Substance/Drug Use: never Adopted: No Caregiver/support person: No Lives independently: Yes Household members: spouse Housing: Apartment Marital status: Number of children: 2 Number of grandchildren: 0 Highest education level completed: High School Graduate service: No Current occupational status: disabled Pets and animals: Yes Pets & animals: dog(s) Leisure activites: games and other Leisure activities details: watching TV Sexually active: Yes Do you think of yourself as: Straight/Heterosexual Current gender identity: Male Shannon/Anabaptist: Restorationism Special shannon needs: No Agree to transfusion: Yes Vitals/I&O/Wt Last Vital Signs Temp 98.1 F 03/24/24 07:11 Pulse 85 03/24/24 11:00 Resp 19 H 03/24/24 11:00 BP 156/78 03/24/24 11:00 Pulse Ox 94 03/24/24 11:00 O2 Del Method Room Air 03/24/24 11:00 Physical Exam 2 Narrative: Overweight gentleman. Requiring nasal cannula oxygen. Mild shortness of breath at rest. Vital signs noted. HEENT is normocephalic atraumatic. Neck is supple lungs have dull bases Heart irregular Abdomen soft positive bowel sounds. Extremities 1+ edema. Left upper extremity AV fistula with good thrill and bruit. Neuro awake alert oriented x 3 Data 03/24/24 07:30 03/24/24 08:14 A&P Assessment and plan (1) ESRD on dialysis: 53-year-old gentleman ESRD diabetes CAD vascular disease pulm embolism obesity, heart failure reduced EF of 35 to 40%. Patient presented with chest pain shortness of breath dyspnea on exertion. 1. ESRD if okay with cardiology will perform his regular dialysis today 2. CAD-per cardiology- s/p PCI to PDA-the patient should be on Eliquis and Plavix. 3. Diabetic control per primary. 4. Monitor blood pressure with dialysis. Case discussed in detail with the patient and his . Patient was seen and examined using audiovisual equipment and the aid of a nurse. Patient consented to telehealth visit and to dialysis. Case discussed with Dr. Quinonez. Plan see above Consult Attestations 2 Medical Necessity Statement: Chest pain shortness of breath known CAD known ESRD. Time Spent in Patient Care: Greater than 35 minutes (>than 50% of time spent in counselling and/or direct pt care on unit) . Coding Level of Care Code Acute Code for Chg Fwd Diagnoses ESRD on dialysis N18.6; Z99.2
[2024-03-24] MEDS: clopidogrel 300 mg Tablet PO (13:07)
[2024-03-24] MEDS: HYDROmorphone 1 mg/mL INJ 1 mL 0.4 MG IVP ×2 (13:08→17:13)
--- NOTE | 2024-03-24 13:12 | ECG_ITS ---
[employer] Test Date: 2024-03-24 Pat Name: Rei Queen Department: Room: Gender: Male Telephone Claims Representative: : 1970 Requested By: Timo Hart Order Number: [id number] Becky MD: SALIMA HYDE Measurements Intervals [place] Rate: 82 P: 66 NV: 209 QRS: 77 QRSD: 111 T: 46 QT: 410 QTc: 479 Interpretive Statements SINUS RHYTHM POSSIBLE ANTERIOR MYOCARDIAL INFARCTION , OF INDETERMINATE AGE [30 ms Q WAVE IN V3/V4, OR R < 0.2 mV IN V4] Compared to ECG 03/24/2024 09:35:19 First degree AV block no longer present Myocardial infarct finding still present Electronically Signed On 03-27-2024 00:40:07 PHARMACEUTICAL SCIENTIST by SALIMA HYDE [email or web address]
[2024-03-24 14:21] LABS: Troponin 5 6HR 75.73 ng/L (0-15)
[2024-03-24 14:24] LABS: Troponin 5 6HR Delta -1.27 ng/L (0-12)
--- NOTE | 2024-03-24 14:29 | PC.NURSE ---
House sup starting US IV for secondary line. ER charge nurse aware.
[2024-03-24] MEDS: heparin 5,000 unit/mL INJ 1 mL IVP (14:39)
[2024-03-24 14:41] LABS: Hepatitis B Surface AB 434.5 (11.5-1000); Hepatitis B Surface Antigen Non-Reactive (Nonreactive); Hepatitis C Virus Antibody Non-Reactive (Nonreactive)
[2024-03-24] MEDS: heparin drip 25,000 UNIT/500 ML PREMIX 27 UNIT IV (14:41)
[2024-03-24] MEDS: nitroglycerin drip 50 MG/250 ML PREMIX IV (14:47)
--- NOTE | 2024-03-24 15:19 | P.CONIM_ITS ---
Documented by User: Ellen Boucher NP 03/25/24 07:58 Providers/Reason For Consult 2 Consulting Physician/Specialty*: Rosi Vee MD Reason for Consult*: NSTEMI Requesting Physician: Dr. Garcia Attending Physician: Rojas Garcia MD History of Present Illness History of Present Illness Rei Queen II is a 53 year old male history of ESRD on dialysis three days per week via left upper extremity AV fistula. History of multiple pulm embolism chronically anticoagulated on eliquis, history of CAD history of diabetes mellitus. Hx of Known CAD with stents recent cardiac catheterization in October 2023 in which showed Diagnostic left Main has no significant disease, circumflex has no significant disease with patent prior stent, OM 1 had patent prior stents. Apical Left Anterior Descending: significant 80-90% stenosis, flow. Proximal to mid vessel has patent prior stents. Ostial to proximal RCA has moderate 30-40% stenosis. Patent prior stent. Posterior Descending Right: severe 90% stenosis, PLV is occluded distally with collaterals from left system. He undwerwent a stent to the PDA at that time. History of hypothyroidism hyperlipidemia, and peripheral vascular disease. History of hypertension. Patient tells me he came in today due to this morning he developed chest pain at the center of his chest that radiated to his left arm. He also have nausea with this. He states this went on for about 10 to 15 minutes. This was relieved after 2 nitros and then he went to the emergency room. He states that he had stopped taking his aspirin Plavix and Eliquis due to he was supposed to be getting a fistulogram this week at another facility. He states that after dialysis his fistula bleeds for quite some time and so they were doing a fistulogram to evaluate this. He states they did not have any kind of Lovenox bridge for him when he stopped to this medication. He has not taken these medications for at least 2 days. In the emergency room he was given Dilaudid nitro morphine and lorazepam. EKG showed no significant acute ST or T wave abnormalities. They did load him with 300 of Plavix and loaded with aspirin. At the time of my evaluation patient is chest pain-free. He states last time he had this chest pain it was when he needed his last coronary stent. Review of Systems 2 Narrative: Consitutional: denies fever, chills, body aches, or changes in appetite, denies abnormal weight loss Eyes: Denies changes in vision Card: Denies chest pain at this time but reports recent chest pain relieved with nitro after stopping dual antiplatelet therapy, denies palpitations, irregular heart rhythm, edema, syncope, reports chronic shortness of breath, orthopnea, leg pain with exertion Resp: Denies shortness of breath, denies hemoptysis, denies cough GI: denies abdominal pain, denies nausea or voimting, denies blood in stool : denies blood in urine, denies dysuria Musc: Denies extremity pain, denies limited range of motion or recent injury Skin: Denies rash, lesions, or wounds, denies changes to skin color Neuro: Denies nubmness in extremities, h/a, s/s of stroke Dewey: Denies easy bruiding/bleeding All: Denies s/s of allergies Medications/Allergies Home Medications Medication Instructions Recorded Confirmed Last Taken Type levothyroxine 88 mcg tablet 88 mcg PO QAM 02/09/21 03/24/24 03/23/24 History bumetanide 2 mg tablet 2 mg PO BID 08/16/22 03/24/24 03/23/24 History atorvastatin 40 mg tablet 40 mg PO QAM #90 tabs 10/25/22 03/24/24 03/23/24 Rx blood-glucose meter,continuous 02/27/23 03/24/24 03/15/23 History (Dexcom G7 Zipper Repairer) diphenhydramine HCl 25 mg tablet 50 mg PO DAILY PRN Allergy Symptoms 05/02/23 03/24/24 03/23/24 History (Benadryl Allergy) insulin lispro 100 unit/mL See Rx Instructions .Route .COMPLEX 05/02/23 03/24/24 03/23/24 History subcutaneous pen (Humalog KwikPen (U-100) Insulin) gabapentin 100 mg capsule 100 mg PO BID 07/07/23 03/24/24 03/23/24 History AFO to left #1 ea 07/25/23 03/24/24 Unknown Rx Diabetic Shoes with Custom insoles #1 ea 07/25/23 03/24/24 Unknown Rx nitroglycerin 0.4 mg sublingual 0.4 mg sublingual Q5M PRN Chest 08/27/23 03/24/24 Unknown Rx tablet (Nitrostat) Pain #25 tabs hydrocortisone 2.5 % topical cream See Rx Instructions .Route .COMPLEX 10/01/23 03/24/24 Unknown History with perineal applicator (Procto-Med HC) isosorbide mononitrate 30 mg See Rx Instructions .Route 10/03/23 03/24/24 03/23/24 Rx tablet,extended release 24 hr .COMPLEX #30 tabs lorazepam 1 mg tablet 1 mg PO Q8H PRN SEVER NAUSEA 10/24/23 03/24/24 03/23/24 History ranolazine 500 mg tablet,extended 500 mg PO BID 10/24/23 03/24/24 03/23/24 History release,12 hr vit B,C-folic ac 800 mcg-zinc 12.5 1 tab PO DAILY 10/29/23 03/24/24 03/23/24 History mg-selen-D3 2,000 unit-vit E tablet (RenaPlex-D) apixaban 2.5 mg tablet (Eliquis) 2.5 mg PO BID #60 tabs 10/30/23 03/24/24 03/23/24 Rx aspirin 81 mg tablet,delayed 81 mg PO DAILY #90 tabs 10/30/23 03/24/24 03/23/24 Rx release carvedilol 6.25 mg tablet 6.25 mg PO BID #90 tabs 10/30/23 03/24/24 03/23/24 Rx clopidogrel 75 mg tablet 75 mg PO DAILY #90 tabs 10/30/23 03/24/24 03/23/24 Rx blood-glucose sensor (Dexcom G7 #9 ea 11/25/23 03/24/24 Unknown Rx Sensor device) insulin degludec 200 unit/mL (3 See Rx Instructions .Route 12/04/23 03/24/24 03/23/24 Rx mL) subcutaneous pen (Tresiba .COMPLEX #9 mL FlexTouch U-200 insulin) tirzepatide 15 mg/0.5 mL See Rx Instructions .Route 12/30/23 03/24/24 03/20/24 Rx subcutaneous pen injector .COMPLEX #2 mL (Mounjaro) bupropion HCl 300 mg 24 hr tablet, 300 mg PO QAM #30 tabs 01/22/24 03/24/24 03/23/24 Rx extended release buspirone 10 mg tablet 10 mg PO BID #60 tabs 01/22/24 03/24/24 03/23/24 Rx fluoxetine 40 mg capsule 40 mg PO QAM #30 caps 01/22/24 03/24/24 03/23/24 Rx trazodone 100 mg tablet 400 mg (4 x 100 mg) PO .HS PRN 01/22/24 03/24/24 03/23/24 Rx insomnia #120 tabs nifedipine 30 mg tablet,extended 30 mg PO DAILY 03/18/24 03/24/24 03/23/24 History release promethazine 25 mg tablet 25 mg PO Q6H 03/24/24 03/24/24 Unknown History tamsulosin 0.4 mg capsule 0.4 mg PO DAILY 03/24/24 03/24/24 Unknown History tizanidine 2 mg tablet 2 mg PO BID 03/24/24 03/24/24 Unknown History Allergies Allergy/AdvReac Type Severity Reaction Status Date / Time Iodinated Contrast Media Allergy Severe ALGY-Difficulty Verified 03/18/24 08:34 Breathing iodine Allergy Severe ALGY-Difficulty Verified 03/18/24 08:34 Breathing metoclopramide [From Reglan] Allergy Severe ALGY-Difficulty Verified 03/18/24 08:34 Breathing nalbuphine [From Nubain] Allergy Severe ADR-Diarrhe Verified 03/18/24 08:34 a naproxen [From Naprosyn] Allergy Severe ADR-Vomitin Verified 03/18/24 08:34 g Sulfa (Sulfonamide Allergy Severe ALGY-Difficulty Verified 03/18/24 08:34 Antibiotics) Breathing ketorolac Allergy Intermediate ADR-Nausea Verified 03/18/24 08:34 ondansetron [From Zofran] Allergy Intermediate ADR-Abdominal Verified 03/18/24 08:34 Pain prochlorperazine Allergy Intermediate ADR-Irritab Verified 03/18/24 08:34 [From Compazine] le codeine AdvReac Severe ALGY-Anaphy Verified 03/18/24 08:34 laxis haloperidol [From Haldol] AdvReac Intermediate ADR-Irritab Verified 03/18/24 08:34 le Current Medications Generic Name Dose Route Start Last Admin Trade Name Freq PRN Reason Stop Dose Admin Nitroglycerin/Dextrose 50 mg in 250 mls @ 0 mls/hr 03/24/24 12:30 03/24/24 14:47 Nitroglycerin Drip IV 10 mcg/min .Q0M RANDY 3 mls/hr Administration Protocol Per Protocol Heparin Sodium/Sodium Chloride 25,000 unit in 500 mls @ 0 mls/hr 03/24/24 13:30 03/24/24 14:41 Heparin Drip IV 14.24 unit/kg/hr CONT RANDY 27 mls/hr Administration Protocol Per Protocol PFSH Acute 2 PFSH: Medical History (Updated 03/24/24 @ 15:58 by Ellen Boucher NP) ESRD (end stage renal disease) Hypertension Psychiatric care 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 mellitus Chronic renal failure Chest pain Chest pain CRF (chronic renal failure) Chronic right SI joint pain Chronic systolic heart failure UTI (urinary tract infection) Peripheral arterial disease PVD (peripheral vascular disease) Worsening angina Elevated troponin Angina at rest Chest pain ESRD (end stage renal disease) Uremic encephalopathy Generalized anxiety disorder ESRD (end stage renal disease) D-dimer, elevated Acute on chronic congestive heart failure History of pulmonary embolism Diabetes Acute kidney injury superimposed on CKD GERD (gastroesophageal reflux disease) Alcohol use disorder, moderate, in sustained remission Major depressive disorder, recurrent severe without psychotic features DVT (deep venous thrombosis) (~03/2020) Proximal left subclavian, basilic and brachial veins, started eliquis this stay, felt present prior to admission Chronic kidney disease -baseline Cr appears to be around 1.5 Atherosclerotic heart disease of standing rock coronary artery with other forms of angina pectoris hx of CAD with prior stenting of proximal LAD, LCx, RCA Ischemic cardiomyopathy Onychodystrophy Chronic anticoagulation Eliquis Osteoarthritis of spine Hypothyroidism Hypertension Hyperlipidemia Diabetes Depression Anemia Foot drop, left H/O acute myocardial infarction H/O deep venous thrombosis developed compartment syndrome Surgical History Peritoneal dialysis catheter in situ (06/15/21) History of appendectomy 1995 History of excision of mass 06/08/2019: Subcutaneous mass on back History of removal of Port-a-Cath Port-A-Cath in place H/O vasectomy Hx of cholecystectomy History of coronary artery stent placement 5x H/O skin graft History of inguinal hernia repair, bilateral 2000 H/O removal of testicle left H/O colonoscopy (11/14/20) 08/2015 H/O esophagogastroduodenoscopy (11/14/20) 08/2015 Family History Grandfather Cancer skin cancer Parkinson disease Brother Hypertension Father Heart disease Mother Hypertension Stroke Aneurysm Grandmother Aneurysm Other Crohn's disease Denies family history of Anesthesia complication Bleeding disorder Social History Smoking and tobacco/nicotine status: never used tobacco/nicotine Second hand smoke exposure: No Alcohol intake: former Year of sobriety/quit date alcohol: 2016 Former alcohol use details: Only holidays - last use 05.19.2015 Substance/Drug Use: never Adopted: No Caregiver/support person: No Lives independently: Yes Household members: spouse Housing: Apartment Marital status: Number of children: 2 Number of grandchildren: 0 Highest education level completed: High School Graduate service: No Current occupational status: disabled Pets and animals: Yes Pets & animals: dog(s) Leisure activites: games and other Leisure activities details: watching TV Sexually active: Yes Do you think of yourself as: Straight/Heterosexual Current gender identity: Male Shannon/Confucianist: Catholic Special shannon needs: No Agree to transfusion: Yes Vitals/I&O/Wt Last Vital Signs Temp 98.1 F 03/24/24 07:11 Pulse 80 03/24/24 14:00 Resp 19 H 03/24/24 14:00 BP 126/66 03/24/24 14:48 Pulse Ox 93 03/24/24 14:00 O2 Del Method Room Air 03/24/24 14:00 Weight last 48 hrs Weight 209 lb Physical Exam 2 Narrative: General: No apparent distress, healthy appearing, well nourished HENMT: normoceophalic Eye: PERRL Neck: No carotid bruit bilaterally Muskuloskeletal: Full ROM Lymphatic: no lymphedema noted Respiratory: Normal respiratory effort, clear to auscultation bilaterally throughout all lung saldaña, no use of accessory muscles Cardio: No JVD, regular rate, regular rhythm, S1 S2 normal, no murmurs, peripheral pulses 2+ throughout Extremities: Full ROM, normal, normal capillary refill, no cyanosis or edema Neuro: Alert and oriented x4, no focal motor deficits Vascular: Good thrill palpated on left upper extremity fistula, bilateral radial 2+ Psych: Affect normal, denies suicidal ideation, mental status grossly normal Skin: No rashes or lesions noted, no wounds Data 03/24/24 07:30 03/24/24 08:14 Other data: Left Heart cath 10/29/2023 Conclusions 1. Severe PDA stenosis s/p PCI with 1 stent. 2. Apical LAD has severe disease but is very distal with no significant area of myocardium supplied. 3. Posterior Descending Right was treated with a Balloon, and Drug Eluting Stent. 05/19/23 Conclusions 1. Moderate mid RCA stenosis s/p IFR 2. that is nonischemic. Medical therapy. Patent prior stents.. A&P Assessment and plan (1) Chest pain: Patient having signs and symptoms consistent with possible acute coronary syndrome. Has known significant CAD with recent stent to the PDA. Troponins are chronically elevated. At this time troponins were 77?70 5.4?75.73. No acute ST elevation or T wave changes on EKG. Patient currently chest pain-free. Agree with heparin and nitro drip. Will hold off on dialysis today to avoid arrhythmias. Dr. Vee did discuss this plan with Dr. West and Dr. Garcia. The plan is to take the patient for a heart cath tomorrow for possible PCI. Qualifiers: Chest pain type: unspecified Qualified Code(s): R07.9 - Chest pain, unspecified (2) Hypertension: Controlled at this time. Patient is on nitro drip as well as takes carvedilol. Qualifiers: Hypertension type: primary hypertension Qualified Code(s): I10 - Essential (primary) hypertension (3) ESRD (end stage renal disease): Plan is to take patient to the [facility] tomorrow for possible PCI of the culprit lesion. Most likely resume dialysis tomorrow. (4) Contrast media allergy: Will give prednisone and Benadryl prior to procedure. Plan The plan is to set the patient up for heart cath tomorrow morning and resume dialysis possibly tomorrow continue heparin drip and nitro drip echocardiogram to observe for any wall motion abnormalities and ejection fraction. Continue dual antiplatelet therapy with aspirin and Plavix. Thank you, Dr. Garcia, for allowing us to take care of this very pleasant 53 year old gentleman. Consult Attestations 2 Medical Necessity Statement: Patient is expected to cross 2 midnights of stay due to possible acute coronary syndrome. Coding Level of Care Code Acute Code for Chg Fwd Diagnoses Chest pain R07.9 Chest pain type: unspecified Primary hypertension I10 Hypertension type: primary hypertension ESRD (end stage renal disease) N18.6 Contrast media allergy Z91.041 Documented by User: Rosi Vee MD 03/24/24 23:34 History of Present Illness History of Present Illness Patient was evaluated and cared for in conjunction with an advanced practice practitioner. I personally examined the patient and reviewed the chart and all pertinent data including imaging, telemetry, and laboratory results. I discussed the patient in detail with the advanced practice practitioner. Please see their note for complete H&P testing result and agreed upon plan of care for the patient. 53-year-old male past medical history as defined below presented with chest pain and abnormal cardiac markers after stopping Plavix for few days, since he continues to have chest pain and because of fact he has stopped dual antiplatelet therapy prematurely we will proceed with left heart catheterization. GENERAL: Patient is alert, awake and oriented x3. HEART: Regular S1 and S2. No murmur, rub or gallop. LUNGS: Clear to auscultate bilaterally. CENTRAL NERVOUS SYSTEM: Grossly nonfocal. EXTREMITIES: Lower extremities with out edema bilaterally. Assessment and plan Elevated cardiac markers Continues off-and-on chest pain of similar quality when he had his prior stent Premature cessation dual antiplatelet therapy Chronic kidney disease Hypertension Continue aspirin and statin load patient with Plavix 300 mg, since there is no acute EKG changes and chest pain has improved after nitro and heparin will proceed with left heart cath in the morning. Patient has been explained and all risk-benefit and alternative for the procedure he would like to proceed with it. Rei Queen II is a 53 year old male history of ESRD on dialysis three days per week via left upper extremity AV fistula. History of multiple pulm embolism chronically anticoagulated on eliquis, history of CAD history of diabetes mellitus. Hx of Known CAD with stents recent cardiac catheterization in October 2023 in which showed Diagnostic left Main has no significant disease, circumflex has no significant disease with patent prior stent, OM 1 had patent prior stents. Apical Left Anterior Descending: significant 80-90% stenosis, flow. Proximal to mid vessel has patent prior stents. Ostial to proximal RCA has moderate 30-40% stenosis. Patent prior stent. Posterior Descending Right: severe 90% stenosis, PLV is occluded distally with collaterals from left system. He undwerwent a stent to the PDA at that time. History of hypothyroidism hyperlipidemia, and peripheral vascular disease. History of hypertension. Patient tells me he came in today due to this morning he developed chest pain at the center of his chest that radiated to his left arm. He also have nausea with this. He states this went on for about 10 to 15 minutes. This was relieved after 2 nitros and then he went to the emergency room. He states that he had stopped taking his aspirin Plavix and Eliquis due to he was supposed to be getting a fistulogram this week at another facility. He states that after dialysis his fistula bleeds for quite some time and so they were doing a fistulogram to evaluate this. He states they did not have any kind of Lovenox bridge for him when he stopped to this medication. He has not taken these medications for at least 2 days. In the emergency room he was given Dilaudid nitro morphine and lorazepam. EKG showed no significant acute ST or T wave abnormalities. They did load him with 300 of Plavix and loaded with aspirin. At the time of my evaluation patient is chest pain-free. He states last time he had this chest pain it was when he needed his last coronary stent. Medications/Allergies Home Medications Medication Instructions Recorded Confirmed Last Taken Type levothyroxine 88 mcg tablet 88 mcg PO QAM 02/09/21 03/24/24 03/23/24 History bumetanide 2 mg tablet 2 mg PO BID 08/16/22 03/24/24 03/23/24 History atorvastatin 40 mg tablet 40 mg PO QAM #90 tabs 10/25/22 03/24/24 03/23/24 Rx blood-glucose meter,continuous 02/27/23 03/24/24 03/15/23 History (Dexcom G7 Zipper Repairer) diphenhydramine HCl 25 mg tablet 50 mg PO DAILY PRN Allergy Symptoms 05/02/23 03/24/24 03/23/24 History (Benadryl Allergy) insulin lispro 100 unit/mL See Rx Instructions .Route .COMPLEX 05/02/23 03/24/24 03/23/24 History subcutaneous pen (Humalog KwikPen (U-100) Insulin) gabapentin 100 mg capsule 100 mg PO BID 07/07/23 03/24/24 03/23/24 History AFO to left #1 ea 07/25/23 03/24/24 Unknown Rx Diabetic Shoes with Custom insoles #1 ea 07/25/23 03/24/24 Unknown Rx nitroglycerin 0.4 mg sublingual 0.4 mg sublingual Q5M PRN Chest 08/27/23 03/24/24 Unknown Rx tablet (Nitrostat) Pain #25 tabs hydrocortisone 2.5 % topical cream See Rx Instructions .Route .COMPLEX 10/01/23 03/24/24 Unknown History with perineal applicator (Procto-Med HC) isosorbide mononitrate 30 mg See Rx Instructions .Route 10/03/23 03/24/24 03/23/24 Rx tablet,extended release 24 hr .COMPLEX #30 tabs lorazepam 1 mg tablet 1 mg PO Q8H PRN SEVER NAUSEA 10/24/23 03/24/24 03/23/24 History ranolazine 500 mg tablet,extended 500 mg PO BID 10/24/23 03/24/24 03/23/24 History release,12 hr vit B,C-folic ac 800 mcg-zinc 12.5 1 tab PO DAILY 10/29/23 03/24/24 03/23/24 History mg-selen-D3 2,000 unit-vit E tablet (RenaPlex-D) apixaban 2.5 mg tablet (Eliquis) 2.5 mg PO BID #60 tabs 10/30/23 03/24/24 03/23/24 Rx aspirin 81 mg tablet,delayed 81 mg PO DAILY #90 tabs 10/30/23 03/24/24 03/23/24 Rx release carvedilol 6.25 mg tablet 6.25 mg PO BID #90 tabs 10/30/23 03/24/24 03/23/24 Rx clopidogrel 75 mg tablet 75 mg PO DAILY #90 tabs 10/30/23 03/24/24 03/23/24 Rx blood-glucose sensor (Dexcom G7 #9 ea 11/25/23 03/24/24 Unknown Rx Sensor device) insulin degludec 200 unit/mL (3 See Rx Instructions .Route 12/04/23 03/24/24 03/23/24 Rx mL) subcutaneous pen (Tresiba .COMPLEX #9 mL FlexTouch U-200 insulin) tirzepatide 15 mg/0.5 mL See Rx Instructions .Route 12/30/23 03/24/24 03/20/24 Rx subcutaneous pen injector .COMPLEX #2 mL (Mounjaro) bupropion HCl 300 mg 24 hr tablet, 300 mg PO QAM #30 tabs 01/22/24 03/24/24 03/23/24 Rx extended release buspirone 10 mg tablet 10 mg PO BID #60 tabs 01/22/24 03/24/24 03/23/24 Rx fluoxetine 40 mg capsule 40 mg PO QAM #30 caps 01/22/24 03/24/24 03/23/24 Rx trazodone 100 mg tablet 400 mg (4 x 100 mg) PO .HS PRN 01/22/24 03/24/24 03/23/24 Rx insomnia #120 tabs nifedipine 30 mg tablet,extended 30 mg PO DAILY 03/18/24 03/24/24 03/23/24 History release promethazine 25 mg tablet 25 mg PO Q6H 03/24/24 03/24/24 Unknown History tamsulosin 0.4 mg capsule 0.4 mg PO DAILY 03/24/24 03/24/24 Unknown History tizanidine 2 mg tablet 2 mg PO BID 03/24/24 03/24/24 Unknown History Allergies Allergy/AdvReac Type Severity Reaction Status Date / Time Iodinated Contrast Media Allergy Severe ALGY-Difficulty Verified 03/18/24 08:34 Breathing iodine Allergy Severe ALGY-Difficulty Verified 03/18/24 08:34 Breathing metoclopramide [From Reglan] Allergy Severe ALGY-Difficulty Verified 03/18/24 08:34 Breathing nalbuphine [From Nubain] Allergy Severe ADR-Diarrhe Verified 03/18/24 08:34 a naproxen [From Naprosyn] Allergy Severe ADR-Vomitin Verified 03/18/24 08:34 g Sulfa (Sulfonamide Allergy Severe ALGY-Difficulty Verified 03/18/24 08:34 Antibiotics) Breathing ketorolac Allergy Intermediate ADR-Nausea Verified 03/18/24 08:34 ondansetron [From Zofran] Allergy Intermediate ADR-Abdominal Verified 03/18/24 08:34 Pain prochlorperazine Allergy Intermediate ADR-Irritab Verified 03/18/24 08:34 [From Compazine] le codeine AdvReac Severe ALGY-Anaphy Verified 03/18/24 08:34 laxis haloperidol [From Haldol] AdvReac Intermediate ADR-Irritab Verified 03/18/24 08:34 le PFSH Acute 2 PFSH: Medical History (Updated 03/24/24 @ 15:58 by Ellen Boucher NP) ESRD (end stage renal disease) Hypertension Psychiatric care 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 mellitus Chronic renal failure Chest pain Chest pain CRF (chronic renal failure) Chronic right SI joint pain Chronic systolic heart failure UTI (urinary tract infection) Peripheral arterial disease PVD (peripheral vascular disease) Worsening angina Elevated troponin Angina at rest Chest pain ESRD (end stage renal disease) Uremic encephalopathy Generalized anxiety disorder ESRD (end stage renal disease) D-dimer, elevated Acute on chronic congestive heart failure History of pulmonary embolism Diabetes Acute kidney injury superimposed on CKD GERD (gastroesophageal reflux disease) Alcohol use disorder, moderate, in sustained remission Major depressive disorder, recurrent severe without psychotic features DVT (deep venous thrombosis) (~03/2020) Proximal left subclavian, basilic and brachial veins, started eliquis this stay, felt present prior to admission Chronic kidney disease -baseline Cr appears to be around 1.5 Atherosclerotic heart disease of standing rock coronary artery with other forms of angina pectoris hx of CAD with prior stenting of proximal LAD, LCx, RCA Ischemic cardiomyopathy Onychodystrophy Chronic anticoagulation Eliquis Osteoarthritis of spine Hypothyroidism Hypertension Hyperlipidemia Diabetes Depression Anemia Foot drop, left H/O acute myocardial infarction H/O deep venous thrombosis developed compartment syndrome Surgical History Peritoneal dialysis catheter in situ (06/15/21) History of appendectomy 1995 History of excision of mass 06/08/2019: Subcutaneous mass on back History of removal of Port-a-Cath Port-A-Cath in place H/O vasectomy Hx of cholecystectomy History of coronary artery stent placement 5x H/O skin graft History of inguinal hernia repair, bilateral 2000 H/O removal of testicle left H/O colonoscopy (11/14/20) 08/2015 H/O esophagogastroduodenoscopy (11/14/20) 08/2015 Family History Grandfather Cancer skin cancer Parkinson disease Brother Hypertension Father Heart disease Mother Hypertension Stroke Aneurysm Grandmother Aneurysm Other Crohn's disease Denies family history of Anesthesia complication Bleeding disorder Social History Smoking and tobacco/nicotine status: never used tobacco/nicotine Second hand smoke exposure: No Alcohol intake: former Year of sobriety/quit date alcohol: 2015 Former alcohol use details: Only holidays - last use 05.19.2015 Substance/Drug Use: never Adopted: No Caregiver/support person: No Lives independently: Yes Household members: spouse Housing: Apartment Marital status: Number of children: 2 Number of grandchildren: 0 Highest education level completed: High School Graduate service: No Current occupational status: disabled Pets and animals: Yes Pets & animals: dog(s) Leisure activites: games and other Leisure activities details: watching TV Sexually active: Yes Do you think of yourself as: Straight/Heterosexual Current gender identity: Male Shannon/Confucianist: Catholic Special shannon needs: No Agree to transfusion: Yes Data 03/24/24 07:30 03/24/24 08:14 A&P Assessment and plan (1) Chest pain: Patient having signs and symptoms consistent with possible acute coronary syndrome. Has known significant CAD with recent stent to the PDA. Troponins are chronically elevated. At this time troponins were 77?70 5.4?75.73. No acute ST elevation or T wave changes on EKG. Patient currently chest pain-free. Agree with heparin and nitro drip. Will hold off on dialysis today to avoid arrhythmias. Dr. Vee did discuss this plan with Dr. Garcia. The plan is to take the patient for a heart cath tomorrow for possible PCI. Qualifiers: Chest pain type: unspecified Qualified Code(s): R07.9 - Chest pain, unspecified (2) Hypertension: Qualifiers: Hypertension type: primary hypertension Qualified Code(s): I10 - Essential (primary) hypertension (3) ESRD (end stage renal disease): (4) Contrast media allergy: Coding Level of Care Code Acute Code for [facility] Fwd Diagnoses Chest pain R07.9 Chest pain type: unspecified Primary hypertension I10 Hypertension type: primary hypertension ESRD (end stage renal disease) N18.6 Contrast media allergy Z91.041
[2024-03-24 15:35] LABS: Glucose Point of Care 97 mg/dL (70-110)
--- NOTE | 2024-03-24 15:46 | PC.NURSE ---
Nitro paste removed from chest at 1510.
[2024-03-24] MEDS: carvedilol 6.25 mg Tablet PO (16:46)
[2024-03-24] MEDS: LORazepam 1 mg Tablet PO (16:46)
[2024-03-24] MEDS: BuSPIRONE 10 mg Tablet PO (16:46)
[2024-03-24] MEDS: acetaminophen 325 mg Tablet 650 MG PO (16:46)
[2024-03-24] MEDS: ranolazine (12HR) 500 mg Tablet PO (16:47)
--- NOTE | 2024-03-24 16:59 | PC.NURSE ---
Patient c/o pain to chest and other usual spots 12/27. Informed Dr Garcia and received telephone order for Dilaudid 0.4mg IVP every 4 hours as needed for severe pain.
[2024-03-24 17:04] LABS: Glucose Point of Care 99 mg/dL (70-110)
[2024-03-24] MEDS: predniSONE 20 mg Tablet 50 MG PO (20:23)
[2024-03-24 21:00] LABS: Glucose Point of Care 166 mg/dL (70-110)
[2024-03-24] MEDS: insulin lispro 100 unit/1 mL SUBCUT (21:04)
[2024-03-24 21:39] LABS: Partial Thromboplastin Time 184.3 SECONDS (23.9-36.7)
--- NOTE | 2024-03-24 21:43 | PC.NURSE ---
PTT critical PTT came back 184.3. Contacted Dr Etienne. Received order to pause heparin drip for 4 hours and then decrease by 2. Paused at 2140.
[2024-03-25] VITALS (50 sets, daily range): BP systolic 101–182; BP diastolic 56–141; PULSE 65–114; RESP 9–23; TEMP 36.5–36.7; O2SAT 90–99
[2024-03-25] MEDS: LORazepam 1 mg Tablet PO ×2 (01:07→13:20)
[2024-03-25] MEDS: HYDROmorphone 1 mg/mL INJ 1 mL 0.4 MG IVP ×2 (01:07→06:02)
[2024-03-25] MEDS: lisinopril 20 mg Tablet PO ×2 (02:35→08:12)
[2024-03-25] MEDS: predniSONE 20 mg Tablet 50 MG PO ×2 (02:35→08:14)
[2024-03-25 03:29] LABS: Basophils # 0.1 10^3/uL (0.0-0.1); Basophils % 1.2 %; Eosinophils # 0.1 10^3/uL (0.0-0.8); Eosinophils % 2.7 %; Hematocrit 33.7 % (37-53); Lymphocytes % 19.6 %; Mean Corpuscular HGB Conc 34.1 g/dL (30-55); Mean Corpuscular Hemoglobin 33.3 pg (27-33); Mean Corpuscular Volume 97.7 fl (82-101); Mean Platelet Volume 10.6 fL (7.4-10.4); Monocytes # 0.4 10^3/uL (0.2-0.9); Neutrophils # 3.34 10^3/uL (1.8-7.7); Neutrophils % 68.3 %; Nucleated Red Blood Cells % 0 %; Platelet Count 247 10^3/cmm (157-399); Red Blood Count 3.45 10^6/uL (3.85-5.65); Red Cell Distribution Width 13.2 % (12.1-15.1); White Blood Count 4.89 10^3/uL (3.29-11.43)
[2024-03-25 03:51] LABS: Slide Review Slide Review Perform
[2024-03-25 04:16] LABS: Alanine Aminotransferase 19 U/L (0-41); Albumin Level 3.7 g/dL (3.5-5.2); Alkaline Phosphatase 99 U/L (40-130); Anion Gap 12.7 (5-19); Aspartate Amino Transferase 18 U/L (0-40); Blood Urea Nitrogen 25 mg/dL (6-20); Calcium 8.5 mg/dL (8.5-10.5); Carbon Dioxide 28 mmol/L (22-29); Chloride 101 mmol/L (98-107); Creatinine Clr Calc Pharmacy 21.0309; Globulin 1.8 g/dL (1.3-4.6); Glomerular Filtration Rate 14.8 mL/min (90-130); Glucose 149 mg/dL (65-115); Magnesium 1.8 mg/dL (1.7-2.3); Osmolality Calculated 293 mOsm/kg (285-295); Phosphorus 3.4 mg/dL (2.5-4.5); Potassium 3.7 mmol/L (3.5-5.1); Sodium 138 mmol/L (136-145); Total Bilirubin 0.9 mg/dL (0.15-1.2); Total Protein 5.5 g/dL (6.6-8.7)
[2024-03-25 04:29] LABS: Partial Thromboplastin Time > 250.0 SECONDS (23.9-36.7)
--- NOTE | 2024-03-25 04:42 | PC.NURSE ---
PTT critical PTT came back at >250. Dr Etienne contacted and received orders to hold heparin drip for 4 hours. Heparin held.
[2024-03-25] MEDS: fluoxetine 20 mg Capsule 40 MG PO (06:08)
[2024-03-25] MEDS: buPROPion XL (24 HR) 300 mg Tablet PO (06:08)
[2024-03-25] MEDS: levothyroxine 88 mcg Tablet PO (06:08)
[2024-03-25] MEDS: atorvastatin 40 mg Tablet PO (06:08)
--- OUTSIDE RECORDS SUMMARY | 2024-03-25 07:03 | XMS_ITS ---
Author Name Unknown Organization [facility] Address [address] [place] [address] Care Team Providers Care Almond Blancher Name Role Phone Kp Montanez DO Primary Care Provider UnavailShelley Renee Unavailable [phone] Pee Castaneda MD Unavailable Unavailable Migration, Provider Unavailable Unavailable Allergies Allergen (clinical drug ingredient) Drug/Non Drug Allergy documented on EMR Reaction Allergy Type Onset Date Status iodine containing compounds Unknown Drug Allergy Active Nubain (nalbuphine) Unknown Drug Allergy Active Ranexa (ranolazine) Unknown Drug Allergy Active Reglan (metoclopramide) Unknown Drug Allergy Active Zofran (ondansetron) Unknown Drug Allergy Active codeine codeine Unknown Drug Allergy Active ketorolac Toradol (ketorolac) Unknown Drug Allergy Active Substance with sulfonamide structure and antibacterial mechanism of action (substance) sulfa drugs Unknown Drug Allergy Active REASON FOR VISIT EMR-Cirilo Encounters Encounter Location Date Provider Diagnosis Migrated_Facility 0 0 03/15/2024 Provider Migration Plan Of Treatment No Information Progress Notes * SMITHA DOWNEY IIDOB:08/1970 (53 yo M)Acc No.[id number]:03/15/2024 Patient:?SMITHA DOWNEY I I :1970???Age:53 Y???Sex:Male Address:[address], [address] , [place], [address] Subjective: * Chief Complaints: * ???EMR-Cirilo * Medical History:? * Surgical History:? * Hospitalization/Major Diagno stic Procedure:? * Medications:? * Allergies:?Toradol (ketorola c): Allergycodeine: Allergysulfa drugs: AllergyNubain (nalbuphine): AllergyZofran (ondansetron): Allergyiodine containing compounds: AllergyRanexa (ranolazine): AllergyReglan (metoclopramide): Allergy Objective: * Vitals:? * Physical Examination:? Assessment: Plan: * Treatment: * Procedure Codes:? * * Date:?
--- OUTSIDE RECORDS SUMMARY | 2024-03-25 07:03 | XMS_ITS ---
Author Name Unknown Organization [facility] Address [address] [place] [address] Care Team Providers Care Programming Development Project Manager Name Role Phone Kp Montanez DO Primary Care Provider UnavailShelley Renee Unavailable [phone] Leonel RITTER, Pee Mcdaniels Unavailable Ray Sherman Unavailable [phone] REASON FOR VISIT rectal bleeding Encounters Encounter Location Date Provider Diagnosis [facility] [address] [place] [address] 03/20/2024 Ray Sherman Plan Of Treatment No Information Progress Notes * SMITHA DOWNEY IIDOB:08/1970 (53 yo M)Acc No.[id number]:03/20/2024 History and Physical Patient:?SMITHA DOWNEY I I Provider:?Ray Sherman MD :1970???Age:53 Y???Sex:Male Hussein e:03/20/2024 Address:[facility] [address] [facility] Pcp:Kp Montanez DO Subjective: * Chief Complaints: * ???1. Rectal bleeding. * Medical History:? Objective: * Vitals:? Assessment: Plan: * Treatment: * Billing Information: * Visit Code:? * Procedure Codes:? * Electronic signature of Murray Sherman MD on 03/25/2024 at 07:03 AM GIMP TACKER Sign off status: Pending * Provider:?Ray Sherman MD Date:?1 05/20/2023 Generated for Emanuel moore/Leo/Bensonitting on:?03/25/2024 07:03 AM GIMP TACKER
--- OUTSIDE RECORDS SUMMARY | 2024-03-25 07:03 | XMS_ITS ---
Author Name Unknown Organization Unknown ALLERGIES AND ADVERSE REACTIONS No information ASSESSMENT No information CHIEF COMPLAINT No information Vital Signs Bpsitting Date Temperature Weight Height Spo2 Respiration Bmi Ti merecorded Pulse 130/70 024 00:00:0 0 98 239,0.00 5,6 97 20 39.2 00:00 78 130/80 024 00:00:0 0 97.6 224,16.0 0 5,6 97 20 36.9 00:00 76 null 024 00:00:0 0 98.2 236,6.00 5,6 93 18 38.7 00:00 89 null 024 00:00:0 0 null 230,0.00 5,6 99 20 37.7 00:00 74 136/82 024 00:00:0 0 97.8 239,0.00 5,6 98 18 39.2 00:00 76 102/68 023 00:00:0 0 97.7 264,4.00 5,6 96 20 42.7 00:00 88 136/72 023 00:00:0 0 null 253,0.00 5,6 95 22 40.8 00:00 86 136/72 024 00:00:0 0 null 261,16.0 0 5,6 98 20 42.3 00:00 98 140/80 024 00:00:0 0 99.1 236,16.0 0 5,6 89 20 38.8 00:00 89 122/64 024 00:00:0 0 97.8 238,2.00 5,6 93 18 39 00:00 69 132/76 023 00:00:0 0 null 253,0.00 5,6 90 18 40.8 00:00 89 134/68 024 00:00:0 0 null 252,0.00 5,6 98 18 40.7 00:00 82 136/80 04/25/2 024 00:00:0 0 98.7 239,3.20 5,6 97 16 39.2 00:00 85 112/66 023 00:00:0 0 null 265,0.00 5,6 92 22 42.8 00:00 91 132/70 023 00:00:0 0 null 253,0.00 5,6 99 20 40.8 00:00 87 OBJECTIVE DATA No information PHYSICAL EXAMINATION No information TREATMENT PLAN No information PROBLEMS No information RESULTS No information REVIEW OF SYSTEMS No information SUBJECTIVE DATA No information MEDICATIONS No information
--- OUTSIDE RECORDS SUMMARY | 2024-03-25 07:03 | XMS_ITS ---
Author Name Unknown Organization [facility] ALLERGIES AND ADVERSE REACTIONS No information ASSESSMENT No information CHIEF COMPLAINT No information Vital Signs Bpsitting Date Temperature Weight Height Spo2 Respiration Bmi Ti merecorded Pulse 130/80 023 12:00: 00 AM 98 250,16.0 0 5,6 97 20 40.5 13:25 78 132/82 021 12:00: 00 AM null 232,4.00 5,6 98 18 37.48 05:17 89 130/80 021 12:00: 00 AM null 247,6.00 5,6 96 19 39.92 05:17 72 132/80 12/20/19 21 12:00: 00 AM null 242,8.00 5,6 95 18 39.14 05:17 83 146/78 11/24/19 21 12:00: 00 AM null 242,0.00 5,6 97 18 39.06 05:17 82 135/85 12/23/19 23 12:00: 00 AM 97.3 249,16.0 0 5,6 96 20 40.4 15:46 84 110/64 018 12:00: 00 AM 97.5 null 5,6 98 20 37.28 02:14 null null 07/21/19 12:00: 00 AM null null null 98 null null 02:15 null 130/64 07/25/19 18 12:00: 00 AM null null 5,6 null 18 35.67 02:14 null 124/70 016 12:00: 00 AM 98 null null null null null 02:14 97 null 021 12:00: 00 AM null null null null null null 02:15 null null 01/26/20 20 12:00: 00 AM null null null 97 null null 02:15 null 126/80 10/24/19 19 12:00: 00 AM 98 null 5,6 null null 36.31 02:14 null null 07/26/19 12:00: 00 AM null 236,0.00 null null null null 02:15 null null 12:00: 00 AM null null null null null null 02:15 null 136/80 12:00: 00 AM null null null null 19 null 02:14 86 90/60 2019 12:00: 00 AM null null 5,6 97 20 36.03 02:14 null null 12:00: 00 AM null null 5,6 null null 36.31 02:14 null 124/76 09/21/19 12:00: 00 AM 97.5 null 5,6 null null 37.93 02:14 null 136/74 12:00: 00 AM null null null null 22 null 02:14 89 124/70 12:00: 00 AM 98.2 null 5,6 null null 35.99 02:14 null 128/76 2018 12:00: 00 AM 97.9 null null null null null 02:14 82 126/78 12:00: 00 AM 97.6 null 5,6 null null null 02:14 null null 05/22/19 12:00: 00 AM null null null null null null 02:15 null 136/76 06/20/19 12:00: 00 AM 97.9 null 5,6 98 null 36.96 02:14 null 122/70 12:00: 00 AM 97.9 null null null null null 02:14 82 null 12:00: 00 AM null null 5,6 null null 39.7 02:14 null 128/74 12:00: 00 AM 97.6 null 5,6 null 20 35.99 02:14 null 126/66 01/21/20 12:00: 00 AM 98.1 null null null null null 02:14 77 null 12:00: 00 AM null null null null null null 02:15 null null 06/22/19 12:00: 00 AM null null null null null null 02:15 null null 12:00: 00 AM null null 5,6 null null 36.63 02:14 null null 12:00: 00 AM null null null null null null 02:14 77 null 2019 12:00: 00 AM null null null null null null 02:15 80 142/78 017 12:00: 00 AM 98.2 null 5,6 97 null 35.18 02:14 null null 2019 12:00: 00 AM null null null null null null 02:15 null 126/60 12:00: 00 AM 97.7 null 5,6 null null 36.31 02:14 null null 2015 12:00: 00 AM null null null 99 null null 02:15 null null 12:00: 00 AM null null null null null null 02:15 78 null 12/21/19 12:00: 00 AM null 217,0.00 null null null null 02:15 null null 09/23/19 12:00: 00 AM null null null null null null 02:15 88 null 09/23/19 12:00: 00 AM null null null null null null 02:15 null null 12:00: 00 AM null null 5,6 null null 38.09 02:14 null 148/76 07/26/19 23 12:00: 00 AM null null null null 18 null 02:14 86 null 12:00: 00 AM null null null null null null 02:14 80 120/82 07/21/19 21 12:00: 00 AM null null 5,6 null 19 38.01 02:14 null 130/78 021 12:00: 00 AM null 249,0.00 5,6 97 20 40.19 05:17 101 132/70 022 12:00: 00 AM null 240,0.00 5,6 95 18 38.73 05:17 101 130/70 06/25/19 19 12:00: 00 AM 97.9 null 5,6 null null 36.63 02:14 null 134/78 022 12:00: 00 AM null null null null 18 null 02:14 77 null 07/21/19 12:00: 00 AM null 235,8.00 null null null null 02:15 null null 08/21/19 12:00: 00 AM null null null 98 null null 02:15 null 130/80 12:00: 00 AM null null 5,6 100 20 35.91 02:14 null null 12:00: 00 AM null null null 97 null null 02:15 null 132/70 12:00: 00 AM null null null null null null 02:14 84 126/80 12:00: 00 AM null null null null 18 null 02:14 81 null 11/25/19 12:00: 00 AM null null null null null null 02:15 78 null 12:00: 00 AM null null 5,6 null null 40.02 02:14 null 148/80 06/22/19 12:00: 00 AM null null 5,6 null 20 36.63 02:14 null 118/78 017 12:00: 00 AM 98 null null null null null 02:14 78 126/72 2017 12:00: 00 AM null null 5,6 null 22 37.44 02:14 null 128/78 12:00: 00 AM null 251,0.00 5,6 98 18 40.51 05:17 73 136/90 10/27/19 12:00: 00 AM null 246,6.00 5,6 97 19 39.76 05:17 87 124/84 12:00: 00 AM null 239,0.00 5,6 96 18 38.57 05:17 71 138/80 12:00: 00 AM null 238,8.00 5,6 98 18 38.49 05:17 96 null 2015 12:00: 00 AM null null null null null null 02:15 null null 01/21/20 12:00: 00 AM null null null null null null 02:15 null null 12:00: 00 AM null null null null null 36.8 02:15 null 140/80 12:00: 00 AM null null null null null null 02:14 102 null 05/26/19 12:00: 00 AM null null null null null null 02:15 85 126/72 019 12:00: 00 AM 97.7 null 5,6 null 18 null 02:14 null null 10/19/19 12:00: 00 AM null null null null null null 02:15 76 122/68 019 12:00: 00 AM null null null null null null 02:14 87 118/70 018 12:00: 00 AM 98.2 null 5,6 null null 35.83 02:14 null null 07/26/19 12:00: 00 AM null null null 97 null null 02:15 null 132/80 12:00: 00 AM null null 5,6 null null 36.31 02:14 null null 022 12:00: 00 AM null null null null null null 02:14 69 124/70 2015 12:00: 00 AM null null 5,6 99 null 35.18 02:14 null null 2017 12:00: 00 AM null null null null null null 02:14 72 null 12:00: 00 AM null null null null null null 02:15 78 128/60 023 12:00: 00 AM null null 5,6 null 20 37.12 02:14 null 130/86 10/21/19 12:00: 00 AM null 240,6.00 5,6 98 18 38.79 05:17 81 136/74 023 12:00: 00 AM null 252,0.00 5,6 95 null 40.7 09:04 99 130/70 024 12:00: 00 AM 98 239,0.00 5,6 97 20 39.2 14:48 78 null 019 12:00: 00 AM null null null null null null 02:15 82 null 2019 12:00: 00 AM null 223,4.00 null null null null 02:15 null null 021 12:00: 00 AM null null null null null null 02:15 79 128/70 018 12:00: 00 AM 98 null null null null null 02:14 84 122/74 05/22/19 18 12:00: 00 AM 97.6 null null null 20 null 02:14 85 116/74 08/19/19 12:00: 00 AM 98.4 null 5,6 null null 36.47 02:14 null 120/64 020 12:00: 00 AM null null 5,6 99 null 36.84 02:14 null 132/76 2016 12:00: 00 AM 98.4 null null null null null 02:14 74 128/70 2018 12:00: 00 AM null null null null 22 null 02:14 111 122/74 016 12:00: 00 AM 98.1 null 5,6 null null 35.34 02:14 null null 12/26/19 12:00: 00 AM null 226,0.00 null null null null 02:15 null 142/74 05/26/19 12:00: 00 AM null null 5,6 97 18 36.15 02:14 null null 11/23/19 12:00: 00 AM null null null 98 null null 02:15 null null 021 12:00: 00 AM 97.3 null 5,6 null null 37.12 02:14 null null 06/22/19 12:00: 00 AM null 227,0.00 null null null null 02:15 null null 12:00: 00 AM null null null null null null 02:15 null null 019 12:00: 00 AM null null 5,6 null null 36.63 02:14 null 126/70 05/26/19 19 12:00: 00 AM 97.9 null 5,6 98 null 36.96 02:14 null 128/70 018 12:00: 00 AM 97.9 null 5,6 98 null 36.96 02:14 null 118/70 022 12:00: 00 AM 98.3 null 5,6 null 18 null 02:14 null 130/84 023 12:00: 00 AM 97.8 null null null null null 02:14 81 126/70 11/25/19 20 12:00: 00 AM null null 5,6 97 16 36.96 02:14 null null 07/25/19 12:00: 00 AM null null null null null null 02:15 77 122/70 2015 12:00: 00 AM 97.5 null 5,6 null null null 02:14 null null 017 12:00: 00 AM null null 5,6 null null 35.51 02:14 null 118/8 019 12:00: 00 AM 98 null 5,6 null null 35.83 02:14 null 130/88 12:00: 00 AM null 240,6.00 5,6 97 18 38.79 05:17 76 null 019 12:00: 00 AM null null 5,6 null null 35.99 02:14 null null 12:00: 00 AM null 224,8.00 null null null null 02:15 null 128/70 01/26/20 20 12:00: 00 AM 98.2 null 5,6 null null 37.12 02:14 null null 2018 12:00: 00 AM null null null null null null 02:15 null null 11/23/19 17 12:00: 00 AM null 216,0.00 null null null null 02:14 null null 06/26/19 17 12:00: 00 AM null 219,0.00 null null null null 02:15 null null 06/22/19 20 12:00: 00 AM null 229,8.00 null null null null 02:15 null 126/82 12/23/19 21 12:00: 00 AM 97.9 null 5,6 97 null 38.01 02:14 null 126/70 12:00: 00 AM 98 null 5,6 80 null 36.8 02:14 null null 12:00: 00 AM null 225,8.00 null null null null 02:15 null null 05/26/19 12:00: 00 AM null 229,0.00 null null null null 02:15 null 142/80 12:00: 00 AM null null null null null null 02:14 84 null 2016 12:00: 00 AM null 221,0.00 null null null null 02:15 null 118/70 06/27/19 18 12:00: 00 AM 97.6 null null null 20 null 02:14 77 132/70 2022 12:00: 00 AM null 253,0.00 5,6 99 20 40.8 11:25 87 102/68 023 12:00: 00 AM 97.7 264,4.00 5,6 96 20 42.7 16:19 88 132/76 023 12:00: 00 AM null 253,0.00 5,6 90 18 40.8 11:24 89 null 017 12:00: 00 AM null null null null null null 02:15 null 122/70 018 12:00: 00 AM 97.2 null 5,6 97 null 37.6 02:14 null 124/68 2019 12:00: 00 AM null null 5,6 98 20 35.67 02:14 null null 09/21/19 12:00: 00 AM null null null null null null 02:15 null 120/80 10/19/19 12:00: 00 AM 97.5 null 5,6 98 null 36.84 02:14 null null 021 12:00: 00 AM null null null null null null 02:15 92 122/84 12/26/19 12:00: 00 AM 98 null 5,6 97 null 36.47 02:14 null 120/78 020 12:00: 00 AM 97.8 null 5,6 null null 37.02 02:14 null null 11/18/19 12:00: 00 AM null null 5,6 null null 36.07 02:14 null null 05/22/19 12:00: 00 AM null 250,0.00 null null null null 02:15 null 144/82 09/23/19 18 12:00: 00 AM 98 null 5,6 99 null null 02:14 null null 12/23/19 12:00: 00 AM null null null null null null 02:15 null 130/75 09/24/19 12:00: 00 AM 98.2 null null null 20 null 02:14 77 110/60 017 12:00: 00 AM 97.6 null null null null null 02:14 85 130/82 022 12:00: 00 AM null 259,6.00 5,6 95 19 41.86 05:17 70 132/82 01/21/20 12:00: 00 AM null null 5,6 null 19 39.78 02:14 null null 12:00: 00 AM null 220,0.00 null null null null 02:15 null null 12:00: 00 AM null null null null null null 02:15 null null 12:00: 00 AM null null null null null null 02:15 82 null 12:00: 00 AM null null 5,6 null null 36.8 02:14 null 138/80 11/23/19 17 12:00: 00 AM 98.2 null 5,6 null null 34.86 02:14 null 120/80 06/22/19 12:00: 00 AM null null null null null null 02:14 75 138/78 12:00: 00 AM null null 5,6 98 20 39.06 02:14 null null 2020 12:00: 00 AM null null 5,6 null null 40.67 02:14 null null 12:00: 00 AM null null null null null null 02:14 73 null 12/21/19 12:00: 00 AM null null null null null null 02:15 null 140/72 12:00: 00 AM 98.1 null null null 20 null 02:14 72 142/76 12:00: 00 AM null null 5,6 null 20 31.95 02:14 null null 12:00: 00 AM null null null null null null 02:15 null 122/74 2016 12:00: 00 AM 98.08 null null null 20 null 02:14 71 132/74 2021 12:00: 00 AM null null null null 16 null 02:14 97 null 12/23/19 12:00: 00 AM null null null null null null 02:15 69 null 2017 12:00: 00 AM null null null 99 null null 02:15 null null 12:00: 00 AM null null null 97 null null 02:15 null null 7/23/2 019 12:00: 00 AM null 225,0.00 null null null null 02:14 null null 022 12:00: 00 AM null null null 97 null null 02:15 null 128/80 2020 12:00: 00 AM null null null null 19 null 02:14 68 130/70 023 12:00: 00 AM null 257,16.0 0 5,6 96 18 41.6 14:02 104 null 019 12:00: 00 AM null null null null null null 02:14 89 null 07/21/19 12:00: 00 AM null null null null null null 02:14 76 124/78 12/21/19 12:00: 00 AM 98.9 null 5,6 97 null 35.02 02:14 null null 12:00: 00 AM null null null 98 null null 02:15 null 134/80 2018 12:00: 00 AM 98.1 null 5,6 null 20 37.44 02:14 null null 2015 12:00: 00 AM null null null null null null 02:15 88 null 09/24/19 12:00: 00 AM null 234,0.00 null null null null 02:15 null null 12:00: 00 AM null null null null null null 02:15 null null 06/20/19 12:00: 00 AM null null null null null null 02:15 76 null 12:00: 00 AM null 223,0.00 null null null null 02:15 null 140/86 08/24/19 12:00: 00 AM 98.1 null 5,6 null null 37.44 02:14 null null 06/26/19 12:00: 00 AM null null null null null null 02:15 86 130/70 2018 12:00: 00 AM 98.2 null 5,6 null null null 02:14 null null 10/24/19 12:00: 00 AM null 225,0.00 null null null null 02:15 null null 12:00: 00 AM null null null null null null 02:15 null null 12:00: 00 AM null 218,0.00 null null null null 02:15 null null 11/25/19 12:00: 00 AM null null null null null null 02:15 null null 12:00: 00 AM null null null null null null 02:15 null null 2019 12:00: 00 AM null null null null null null 02:15 85 null 05/22/19 12:00: 00 AM null null null null null null 02:15 null 138/74 12:00: 00 AM null null null null 20 null 02:14 89 null 2020 12:00: 00 AM null null null null null null 02:15 null null 12:00: 00 AM null null null null null null 02:14 84 null 12:00: 00 AM null null null null null null 02:15 null 130/70 12:00: 00 AM 98.3 null null null null null 02:14 80 null 12:00: 00 AM null null null null null null 02:15 null null 08/21/19 12:00: 00 AM null null 5,6 null null 36.96 02:14 null null 12:00: 00 AM null 227,0.00 null null null null 02:15 null null 01/21/20 12:00: 00 AM null null null null null null 02:15 null null 06/23/19 12:00: 00 AM null null null null null null 02:15 null 126/70 06/23/19 12:00: 00 AM 97.9 null 5,6 null null null 02:14 null null 08/19/19 12:00: 00 AM null null null 95 null null 02:15 null null 09/24/19 12:00: 00 AM null null null null null null 02:15 null 122/64 09/18/19 12:00: 00 AM 97.8 238,2.00 5,6 93 18 39 10:36 69 136/80 024 12:00: 00 AM 98.7 239,3.20 5,6 97 16 39.2 11:46 85 112/66 12/20/ 2023 12:00: 00 AM null 265,0.00 5,6 92 22 42.8 08:46 91 138/78 021 12:00: 00 AM null 241,0.00 5,6 93 18 38.89 05:17 77 136/72 05/22/19 24 12:00: 00 AM null 261,16.0 0 5,6 98 20 42.3 12:20 98 110/64 08/21/19 19 12:00: 00 AM null null null null null null 02:14 86 null 06/25/19 12:00: 00 AM null null null 97 null null 02:15 null 132/80 022 12:00: 00 AM 98.2 null null null null null 02:14 80 null 017 12:00: 00 AM null 223,0.00 null null null null 02:15 null null 01/21/20 12:00: 00 AM null 246,8.00 null null null null 02:15 null null 11/25/19 12:00: 00 AM null 229,0.00 null null null null 02:15 null 136/72 023 12:00: 00 AM null 253,0.00 5,6 95 22 40.8 08:56 86 null 05/26/19 12:00: 00 AM null null null null null null 02:15 78 null 019 12:00: 00 AM null null null 99 null null 02:15 null null 020 12:00: 00 AM null null 5,6 null null 36.23 02:14 null null 021 12:00: 00 AM null null 5,6 null null 41.01 02:14 null null 019 12:00: 00 AM null null null null null null 02:15 null null 2018 12:00: 00 AM null null null 98 null null 02:15 null null 10/24/19 12:00: 00 AM null null null null null null 02:14 78 null 016 12:00: 00 AM null 219,0.00 null null null null 02:15 null null 07/25/19 12:00: 00 AM null null null 99 null null 02:15 null null 018 12:00: 00 AM null null null 98 null null 02:15 null null 12:00: 00 AM null null null null null null 02:15 83 null 2021 12:00: 00 AM null null null null null null 02:15 null null 01/26/20 12:00: 00 AM null null null null null null 02:15 null null 2015 12:00: 00 AM null 218,0.00 null null null null 02:15 null null 08/24/19 12:00: 00 AM null null null 99 null null 02:15 null null 06/27/19 12:00: 00 AM null 224,0.00 null null null null 02:15 null 128/80 12:00: 00 AM null null 5,6 99 20 36.39 02:14 null 118/68 017 12:00: 00 AM 97.9 null null null null null 02:14 73 null 2015 12:00: 00 AM null null null null null null 02:15 null null 12:00: 00 AM null 225,0.00 null null null null 02:15 null null 12:00: 00 AM null null null 99 null null 02:15 null null 08/19/19 12:00: 00 AM null null null null null null 02:14 78 null 07/26/19 12:00: 00 AM null null 5,6 null null 38.09 02:14 null null 10/19/19 12:00: 00 AM null 228,4.00 null null null null 02:15 null 130/76 11/18/19 19 12:00: 00 AM null null null null null null 02:14 78 128/70 019 12:00: 00 AM 97.9 null 5,6 100 null 36.8 02:14 null null 2016 12:00: 00 AM null null 5,6 null null 35.67 02:14 null null 09/21/19 12:00: 00 AM null 235,0.00 null null null null 02:15 null null 06/25/19 12:00: 00 AM null null null null null null 02:14 80 null 12:00: 00 AM null null null null null null 02:15 83 null 12:00: 00 AM null null 5,6 null null 39.06 02:14 null 124/68 12:00: 00 AM null null null null null null 02:14 82 null 09/21/19 12:00: 00 AM null null null 97 null null 02:15 null null 06/25/19 12:00: 00 AM null null null null null null 02:15 null null 07/25/19 12:00: 00 AM null null null null null null 02:15 null null 07/26/19 12:00: 00 AM null null null null null null 02:15 null null 12:00: 00 AM null null null null null null 02:15 null 120/70 06/26/19 12:00: 00 AM null null 5,6 null null 35.34 02:14 null null 12:00: 00 AM null null null null null null 02:15 null null 12:00: 00 AM null null 5,6 null null 35.34 02:14 null null 2016 12:00: 00 AM null null null null null null 02:15 null null 05/22/19 12:00: 00 AM null null 5,6 null null 36.31 02:14 null null 2019 12:00: 00 AM null null 5,6 99 16 35.88 02:14 null null 12:00: 00 AM null 228,0.00 null null null null 02:15 null null 11/18/19 12:00: 00 AM null null null 98 null null 02:15 null null 12:00: 00 AM null null null 98 null null 02:15 null 130/76 05/22/19 12:00: 00 AM null null null null 18 null 02:14 72 null 12:00: 00 AM null 249,0.00 null null null null 02:14 null null 2019 12:00: 00 AM null null null null null null 02:15 106 null 08/19/19 12:00: 00 AM null null null null null null 02:15 null null 12:00: 00 AM null 249,0.00 null null null null 02:14 null null 12:00: 00 AM null null null null null null 02:15 null null 06/27/19 12:00: 00 AM null null 5,6 null null 36.15 02:14 null null 12:00: 00 AM null null null null null null 02:15 null null 2018 12:00: 00 AM null null null null null null 02:14 84 null 12:00: 00 AM null 249,8.00 null null null null 02:14 null null 12:00: 00 AM null 222,0.00 null null null null 02:15 null null 11/18/19 12:00: 00 AM null null null null null null 02:15 null null 07/22/19 12:00: 00 AM null null 5,6 null null 37 02:14 null null 2015 12:00: 00 AM null 216,0.00 null null null null 02:14 null null 2020 12:00: 00 AM null 252,0.00 null null null null 02:15 null null 12:00: 00 AM null null null null null null 02:15 78 null 01/21/20 12:00: 00 AM null null null null null null 02:14 82 null 06/22/19 12:00: 00 AM null null null 97 null null 02:15 null null 017 12:00: 00 AM null null 5,6 null null 35.34 02:14 null null 12:00: 00 AM null null null null null 40.19 02:15 null null 12:00: 00 AM null null null 96 null null 02:15 null null 01/21/20 12:00: 00 AM null null 5,6 null null 37.34 02:14 null null 12:00: 00 AM null null null 99 null null 02:15 null null 12:00: 00 AM null null null null null null 02:15 null null 12:00: 00 AM null null null null null null 02:15 null null 12:00: 00 AM null null null null null null 02:15 null null 08/21/19 12:00: 00 AM null null null null null null 02:15 null null 01/21/20 12:00: 00 AM null null null 98 null null 02:15 null null 2018 12:00: 00 AM null null null null null null 02:14 78 null 12:00: 00 AM null null null null null null 02:15 80 null 2017 12:00: 00 AM null null null null null null 02:15 null null 12:00: 00 AM null 236,2.00 null null null null 02:15 null 146/80 022 12:00: 00 AM null null null null 20 null 02:14 80 null 017 12:00: 00 AM null null null null null null 02:15 null null 08/21/19 12:00: 00 AM null 229,0.00 null null null null 02:15 null null 12:00: 00 AM null null 5,6 null null 36.47 02:14 null null 08/24/19 12:00: 00 AM null null null null null null 02:14 80 null 12:00: 00 AM null 198,0.00 null null null null 02:14 null null 2018 12:00: 00 AM null null null 99 null null 02:15 null null 12:00: 00 AM null null 5,6 null null 39.22 02:14 null null 12/26/19 12:00: 00 AM null null null null null null 02:15 null null 12:00: 00 AM null null null null null null 02:14 96 null 09/24/19 12:00: 00 AM null null 5,6 null null 37.76 02:14 null null 07/25/19 12:00: 00 AM null 221,0.00 null null null null 02:15 null null 06/26/19 12:00: 00 AM null null null null null null 02:15 null 118/70 12:00: 00 AM 98.3 null 5,6 97 null 37.6 02:14 null null 2018 12:00: 00 AM null null null null null null 02:15 null null 12:00: 00 AM null null null 97 null null 02:15 null null 12:00: 00 AM null 242,0.00 null null null null 02:15 null null 06/22/19 12:00: 00 AM null null 5,6 null null 37.04 02:14 null null 2018 12:00: 00 AM null null null null null null 02:15 null null 2015 12:00: 00 AM null null null null null null 02:14 98 null 2016 12:00: 00 AM null null null 99 null null 02:15 null null 2016 12:00: 00 AM null null null null null null 02:15 null null 06/22/19 12:00: 00 AM null null null null null null 02:14 85 null 023 12:00: 00 AM null null 5,6 null null 38.11 02:14 null null 12:00: 00 AM null 226,0.00 null null null null 02:15 null null 05/22/19 12:00: 00 AM null null 5,6 null null 40.35 02:14 null null 2018 12:00: 00 AM null null null 97 null null 02:15 null null 019 12:00: 00 AM null 222,0.00 null null null null 02:15 null null 12/21/19 12:00: 00 AM null null null null null null 02:15 77 134/68 08/19/19 12:00: 00 AM null 252,0.00 5,6 98 18 40.7 09:40 82 null 2021 12:00: 00 AM null null 5,6 null null 38.41 02:14 null null 11/23/19 12:00: 00 AM null null null null null null 02:14 71 null 01/21/20 12:00: 00 AM null 231,6.00 null null null null 02:15 null null 12:00: 00 AM null null null null null null 02:15 null null 12:00: 00 AM null 242,0.00 null null null null 02:15 null null 12:00: 00 AM null 254,2.00 null null null null 02:15 null null 12:00: 00 AM null null null 100 null null 02:15 null null 12:00: 00 AM null null null null null null 02:15 null null 12/26/19 12:00: 00 AM null null null null null null 02:15 86 null 2018 12:00: 00 AM null 228,0.00 null null null null 02:15 null null 06/23/19 12:00: 00 AM null null null null null null 02:14 80 null 12:00: 00 AM null null null 97 null null 02:15 null null 12:00: 00 AM null null null 98 null null 02:15 null null 06/22/19 12:00: 00 AM null null null null null null 02:15 null null 12:00: 00 AM null 248,0.00 null null null null 02:15 null null 12:00: 00 AM null 228,0.00 null null null null 02:15 null null 06/26/19 12:00: 00 AM null null null 98 null null 02:15 null null 12:00: 00 AM null 220,0.00 null null null null 02:15 null null 12:00: 00 AM null null 5,6 null null 35.99 02:14 null null 12:00: 00 AM null null null null null null 02:15 null null 12:00: 00 AM null 243,0.00 null null null null 02:15 null null 12:00: 00 AM null null null 99 null null 02:15 null null 7/12/2 018 12:00: 00 AM null null null null null null 02:15 76 null 12:00: 00 AM null null null 97 null null 02:15 null null 2018 12:00: 00 AM null null null 96 null null 02:15 null null 12:00: 00 AM null null null null null null 02:15 null null 12:00: 00 AM null null null null null null 02:14 82 null 12/23/19 12:00: 00 AM null 235,8.00 null null null null 02:15 null null 12:00: 00 AM null null null 98 null null 02:15 null null 12:00: 00 AM null null null null null null 02:14 52 null 12:00: 00 AM null 225,0.00 null null null null 02:15 null null 06/20/19 12:00: 00 AM null 229,0.00 null null null null 02:15 null null 12:00: 00 AM null 231,0.00 null null null null 02:15 null null 2019 12:00: 00 AM null 222,5.01 null null null null 02:15 null null 2016 12:00: 00 AM null null 5,6 null null 35.51 02:14 null null 01/26/20 12:00: 00 AM null null null null null null 02:15 78 null 12:00: 00 AM null null null null null null 02:15 null null 12:00: 00 AM null null null null null null 02:15 null null 12:00: 00 AM null null 5,6 null null 35.51 02:14 null null 2019 12:00: 00 AM null null null null null null 02:15 null null 12:00: 00 AM null null null 93 null null 02:15 null null 09/24/19 12:00: 00 AM null null null 98 null null 02:15 null null 12:00: 00 AM null 229,6.00 null null null null 02:15 null null 12:00: 00 AM null null null 94 null null 02:15 null null 2018 12:00: 00 AM null null null null null null 02:15 null null 08/24/19 12:00: 00 AM null null null null null null 02:15 null null 12:00: 00 AM null null null 80 null null 02:15 null null 05/22/19 12:00: 00 AM null null null 96 null null 02:15 null null 12:00: 00 AM null null null null null null 02:15 null null 11/18/19 12:00: 00 AM null 223,8.00 null null null null 02:15 null null 12:00: 00 AM null null null null null null 02:15 80 null 06/23/19 12:00: 00 AM null null null 97 null null 02:15 null null 12:00: 00 AM null null null 93 null null 02:15 null null 12:00: 00 AM null null null null null null 02:15 null null 12:00: 00 AM null 227,0.00 null null null null 02:15 null null 07/21/19 12:00: 00 AM null null null null null null 02:15 null null 12:00: 00 AM null null null null null null 02:15 null null 023 12:00: 00 AM null 230,0.00 null null null null 02:14 null null 05/22/19 12:00: 00 AM null null null 98 null null 02:15 null null 023 12:00: 00 AM null null null 91 null null 02:15 null null 019 12:00: 00 AM null null null 97 null null 02:15 null null 05/22/19 12:00: 00 AM null 225,0.00 null null null null 02:15 null null 12:00: 00 AM null null null null null null 02:15 null null 2020 12:00: 00 AM null null null 97 null null 02:15 null null 12:00: 00 AM null null null 98 null null 02:15 null null 10/24/19 12:00: 00 AM null null null 99 null null 02:15 null null 12:00: 00 AM null null null null null null 02:15 null null 12:00: 00 AM null null null null null null 02:15 null null 2021 12:00: 00 AM null null null 97 null null 02:15 null null 12:00: 00 AM null 228,4.00 null null null null 02:15 null null 05/26/19 12:00: 00 AM null null null null null null 02:15 null null 2018 12:00: 00 AM null null 5,6 null null 36.47 02:14 null null 12:00: 00 AM null null null null null 40.27 02:15 null null 2021 12:00: 00 AM null 238,0.00 null null null null 02:15 null null 12:00: 00 AM null 229,0.00 null null null null 02:15 null null 12:00: 00 AM null null null 99 null null 02:15 null null 12:00: 00 AM null null null null null null 02:14 82 null 12:00: 00 AM null null null null null null 02:15 null null 12:00: 00 AM null null null null null null 02:15 null null 12:00: 00 AM null null null 98 null null 02:15 null null 12:00: 00 AM null 223,0.00 null null null null 02:14 null null 06/23/19 12:00: 00 AM null 226,0.00 null null null null 02:14 null null 05/26/19 12:00: 00 AM null 224,0.00 null null null null 02:15 null null 12:00: 00 AM null null null null null null 02:14 87 null 12:00: 00 AM null null null 99 null null 02:15 null null 12:00: 00 AM null null null null null null 02:14 74 null 12:00: 00 AM null null null 98 null null 02:15 null null 12:00: 00 AM null null null null null null 02:15 null null 12:00: 00 AM null 219,0.00 null null null null 02:14 null null 12:00: 00 AM null null null 95 null null 02:15 null null 12:00: 00 AM null 236,0.00 null null null null 02:15 null null 01/26/20 12:00: 00 AM null 230,0.00 null null null null 02:15 null null 2018 12:00: 00 AM null null null null null 36.47 02:15 null null 08/19/19 12:00: 00 AM null 226,0.00 null null null null 02:15 null null 12:00: 00 AM null 222,8.00 null null null null 02:15 null null 01/21/20 12:00: 00 AM null null null 96 null null 02:15 null null 12:00: 00 AM null null null 95 null null 02:15 null null 2018 12:00: 00 AM null 226,0.00 null null null null 02:15 null null 2016 12:00: 00 AM null 220,0.00 null null null null 02:14 null null 12:00: 00 AM null 228,0.00 null null null null 02:15 null null 12:00: 00 AM null 219,0.00 null null null null 02:15 null null 12:00: 00 AM null null null null null null 02:15 null null 12:00: 00 AM null 233,0.00 null null null null 02:15 null null 06/23/19 12:00: 00 AM null null null null null 36.47 02:15 null null 12:00: 00 AM null null null 99 null null 02:15 null null 12:00: 00 AM null 233,0.00 null null null null 02:15 null null 12:00: 00 AM null null null null null null 02:15 null null 12:00: 00 AM null 246,0.00 null null null null 02:15 null null 2017 12:00: 00 AM null 232,0.00 null null null null 02:14 null null 06/27/19 12:00: 00 AM null null null null null null 02:15 null null 12:00: 00 AM null null null 98 null null 02:15 null null 12:00: 00 AM null null 5,6 null null 35.99 02:14 null null 12:00: 00 AM null null null null null null 02:15 null null 2019 12:00: 00 AM null 221,0.00 null null null null 02:15 null null 07/22/19 12:00: 00 AM null 229,4.00 null null null null 02:15 null null 12:00: 00 AM null 223,0.00 null null null null 02:15 null null 09/21/19 12:00: 00 AM null null null null null null 02:15 72 null 12:00: 00 AM null null null null null null 02:15 null null 06/22/19 12:00: 00 AM null null null 99 null null 02:15 null null 2018 12:00: 00 AM null 232,0.00 null null null null 02:15 null null 12:00: 00 AM null null null 96 null null 02:15 null null 12:00: 00 AM null null null null null null 02:15 null null 2015 12:00: 00 AM null null null null null 34.86 02:15 null null 12:00: 00 AM null 223,0.00 null null null null 02:15 null null 2018 12:00: 00 AM null 226,0.00 null null null null 02:14 null null 08/24/19 18 12:00: 00 AM null 232,0.00 null null null null 02:15 null null 12:00: 00 AM null null null 98 null null 02:15 null null 11/23/19 17 12:00: 00 AM null null null null null null 02:15 null null 06/25/19 12:00: 00 AM null 227,0.00 null null null null 02:15 null null 2016 12:00: 00 AM null null null 98 null null 02:15 null null 12:00: 00 AM null null null null null null 02:15 null null 10/24/19 12:00: 00 AM null null null null null null 02:15 null null 12:00: 00 AM null 230,0.00 null null null null 02:15 null null 12:00: 00 AM null null null null null null 02:15 80 null 06/27/19 12:00: 00 AM null null null 99 null null 02:15 null null 12:00: 00 AM null null null 99 null null 02:15 null null 12:00: 00 AM null null null null null null 02:15 null null 12:00: 00 AM null 228,0.00 null null null null 02:14 null OBJECTIVE DATA No information PHYSICAL EXAMINATION No information TREATMENT PLAN No information PROBLEMS No information RESULTS No information REVIEW OF SYSTEMS No information SUBJECTIVE DATA No information MEDICATIONS No information
--- OUTSIDE RECORDS SUMMARY | 2024-03-25 07:04 | XMS_ITS ---
Author Name Unknown Organization [facility] Address [address] [place] [address] Care Team Providers Care Brush Or Broom Cutter Name Role Phone Montanez Kp LYNN Primary Care Provider UnavailShelley Renee Unavailable [phone] Pee Castaneda MD Unavailable Migration, Provider Unavailable Unavailable REASON FOR VISIT EMR-Cirilo Encounters Encounter Location Date Provider Diagnosis Migrated_Facility 0 0 03/14/2024 Provider Migration Plan Of Treatment No Information Progress Notes * SMITHA DOWNEY IIDOB:08/1970 (53 yo M)Acc No.[id number]:03/14/2024 Patient:?SMITHA DOWNEY I I :1970???Age:53 Y???Sex:Male Address:[facility]– [place][note 2[place] [address], [address] , [place], [address] Subjective: * Chief Complaints: * ???EMR-Cirilo * Medical History:? * Surgical History:? * Hospitalization/Major Diagno stic Procedure:? * Medications:? Objective: * Vitals:? * Physical Examination:? Assessment: Plan: * Treatment: * Procedure Codes:? * * Date:?
--- OUTSIDE RECORDS SUMMARY | 2024-03-25 07:04 | XMS_ITS ---
Author Name Ghazal Schmitt Address [address] [place] [address] Phone [phone] Organization [facility] e, NA DOCUMENT DISCLAIMER Multiple document versions may exist, please be sure you review the latest version. The information in the [facility] [place] Progress Note Document represents a providers documented clinical note containing certain health and medical information. It may not contain the complete medical history for the patient and should be independently verified. The represented time in the document is Eastern Time PROVIDER ROUNDING NOTE COMPREHENSIVE Patient:?Rei?Bret,?1970,?53y,?M Dialysis?Location:?[place] Attending?Director Of Hotel Operations:?Migel Service?Date:?01/28/2024 Service?Provider:?Ghazal?Keshia,?SAMPLER OVENS I?met?face?to?face?with?the?patient?today. OVERVIEW The?patient?presented?with?ESRD?on?dialysis Primary?cause?of?renal?failure:?Type?2?diabetes?mellitus&#16 0;with?diabetic?chronic?kidney?disease Comments:?Vss,?seen?on?hd?machine,?? Tested?COVID?+?7?days?ago.??Reporting?ongoing?fatigue,& #160;SOB,?now?expectorating?sputum.??Lungs?diminished,?auscultati on?impaired?s/t?body?habitus.??Afebrile,?pulse?ox?on&#1 60;room?air?98%.???Ordered?levaquin?and?medrol?dose pack.?? Medications?and?labs?reviewed. LAST?HOSPITALIZATION Discharge?Diagnosis:?R07.9?Chest?pain,?unspecified I20.0?Unstable?angina Admission?Date?10/28/23 Discharge?Date?10/30/23 Comments:?Lhc?with?one?pci:??now?has?hd?seven?stents. DIALYSIS?PRESCRIPTION ??IHD?3x?Week?Start?date:?01/09/24 ??Dialyzer:?180NRe?Optiflux ??BFR:?450 ??DFR:?Autoflow?1.5 ??Potassium:?2.0 ??Sodium:?138 ??EDW:?102.5 ??Duration:?4:00 ??Calcium:?2.5 ??Bicarb:?32 ??Rx?updated?on:?01/09/2024 TREATMENT?ASSESSMENT Comments:?Stable?at?goal?range. BP?Stand?Pre ??01/23/2024:?147/56 ??01/21/2024:?179/93 BP?Sit?Pre ??01/25/2024:?128/45 ??01/23/2024:?115/97 ??01/21/2024:?180/64 BP?Stand?Post ??01/23/2024:?154/71 BP?Sit?Post ??01/25/2024:?162/77 ??01/23/2024:?178/57 ??01/21/2024:?152/87 Tx?Duration ??01/25/2024:?4:06 ??01/23/2024:?4:03 ??01/21/2024:?1:31 Missed?Treatments 0?-?last?30?days 0?-?last?60?days FLUID?ASSESSMENT Comments:?Education?about?fluid?gains Doing?some?better:?assess?for?EDW?change?post?treatment EDW?(kg) ??01/25/2024:?102.5 ??01/23/2024:?102.5 ??01/21/2024:?102.5 Weight?Pre?(kg) ??01/25/2024:?102.9 ??01/23/2024:?104.7 ??01/21/2024:?105.3 Weight?Post?(kg) ??01/25/2024:?102.6 ??01/23/2024:?102.5 ??01/21/2024:?104.8 PWV?(kg) ??01/25/2024:?0.1 ??01/23/2024:?0.0 ??01/21/2024:?2.3 UF?Rate?(mL/kg/hr) ??01/25/2024:?0.7 ??01/23/2024:?5.3 ??01/21/2024:?3.1 ADEQUACY?ASSESSMENT Adequacy?target?met.?Prescription?compliance?acceptable.? spKt/V,?URR ??01/23/2024:?1.73,?78.0 ??12/26/2023:?1.69,?78.0 ??11/28/2023:?1.82,?80.0 ACCESS?ASSESSMENT ??Access?Type:?AVGraft ??Access?SubType:?Biological?-?Bovine ??Access?Status:?Active?(In?Use)?-?01/31/2023 ??Access?Location:?Left?Upper?Arm ??Created:?09/28/2022 Flow ??01/02/2024:?789 ??12/31/2023:?520 ??10/10/2023:?506 ANEMIA?ASSESSMENT Comments:?On?IV?iron?and?JENNIFER?procotol HGB?at?goal.? HGB,?TSAT ??01/23/2024:?12.3,?19.0 ??01/16/2024:?12.1,?- ??01/09/2024:?11.8,?- ?? Ferritin ??01/23/2024:?901.0 ??12/26/2023:?597.0 ??10/24/2023:?394.0 Mircera,?IVP?(mcg) ??11/07/2023:?30 Iron?Sucrose?(Venofer)?(mg) ??12/16/2023:?100 ??12/12/2023:?100 ??12/10/2023:?100 BMM?ASSESSMENT PTH?controlled.?Calcium?controlled.?Phosphorus?controlled.? PTH,?Intact ??01/23/2024:?171.0 ??10/24/2023:?138.0 ??07/25/2023:?103.0 ?? Calcium,?Phosphorus ??01/23/2024:?8.5,?5.3 ??12/26/2023:?8.8,?3.5 ??11/21/2023:?8.7,?3.1 NUTRITION?ASSESSMENT Comments:?Focus?on?protein?in?diet Potassium,?Albumin ??01/23/2024:?4.1,?3.6 ??12/26/2023:?4.1,?3.4 ??11/21/2023:?4.1,?3.8 ?? eNPCR ??01/23/2024:?0.83 ??12/26/2023:?0.55 ??11/28/2023:?0.61 PHYSICAL?EXAM Exam?Not?Performed. DIAGNOSIS Chief?Complaint:?N18.6?End?stage?renal?disease Patient?data?updated?01/28/2024?at?10:10?AM Signed?By:?Keshia,?Ghazal,?SAMPLER OVENS??on?01/28/2024?10:12:16 AM END OF DOCUMENT
--- OUTSIDE RECORDS SUMMARY | 2024-03-25 07:04 | XMS_ITS ---
Author Name Ghazal Schmitt Address [address] [place] [address] Phone [phone] Organization [facility] e, NA DOCUMENT DISCLAIMER Multiple document versions may exist, please be sure you review the latest version. The information in the [facility] Progress Note Document represents a providers documented clinical note containing certain health and medical information. It may not contain the complete medical history for the patient and should be independently verified. The represented time in the document is Eastern Time PROVIDER ROUNDING NOTE COMPREHENSIVE Patient:?Rei?Bret,?1970,?53y,?M Dialysis?Location:?[facility] Attending?Pipe Washer:?Migel Service?Date:?12/31/2023 Service?Provider:?Ghazal?Keshia,?ECONOMIC DEVELOPER I?met?face?to?face?with?the?patient?today. OVERVIEW The?patient?presented?with?ESRD?on?dialysis Primary?cause?of?renal?failure:?Type?2?diabetes?mellitus&#16 0;with?diabetic?chronic?kidney?disease Comments:?Vss,?seen?on?hd?machine,??Reports?feeling?wel l,?denies?needs?for?me?today Medications?and?labs?reviewed. LAST?HOSPITALIZATION Discharge?Diagnosis:?R07.9?Chest?pain,?unspecified I20.0?Unstable?angina Admission?Date?10/28/23 Discharge?Date?10/30/23 Comments:?Lhc?with?one?pci:??now?has?hd?seven?stents. DIALYSIS?PRESCRIPTION ??IHD?3x?Week?Start?date:?12/28/23 ??Dialyzer:?180NRe?Optiflux ??BFR:?450 ??DFR:?Autoflow?1.5 ??Potassium:?2.0 ??Sodium:?138 ??EDW:?104.2 ??Duration:?4:00 ??Calcium:?2.5 ??Bicarb:?32 ??Rx?updated?on:?12/28/2023 TREATMENT?ASSESSMENT Comments:?Post?Dy?BP?in?goal.??? BP?Stand?Pre ??12/28/2023:?162/69 ??12/26/2023:?106/58 ??12/25/2023:?141/64 BP?Sit?Pre ??12/28/2023:?173/86 ??12/26/2023:?113/89 ??12/25/2023:?144/75 BP?Stand?Post ??12/28/2023:?142/57 ??12/26/2023:?141/67 ??12/25/2023:?161/81 BP?Sit?Post ??12/28/2023:?184/74 ??12/26/2023:?140/66 ??12/25/2023:?138/67 Tx?Duration ??12/28/2023:?4:03 ??12/26/2023:?4:03 ??12/25/2023:?4:00 Missed?Treatments 0?-?last?30?days 0?-?last?60?days FLUID?ASSESSMENT Comments:?Education?about?fluid?gains Doing?some?better:?assess?for?EDW?change?post?treatment EDW?(kg) ??12/28/2023:?105.2 ??12/26/2023:?105.2 ??12/25/2023:?105.2 Weight?Pre?(kg) ??12/28/2023:?104.4 ??12/26/2023:?105.6 ??12/25/2023:?105.7 Weight?Post?(kg) ??12/28/2023:?103.9 ??12/26/2023:?104.8 ??12/25/2023:?105.2 PWV?(kg) ??12/28/2023:?-1.3 ??12/26/2023:?-0.4 ??12/25/2023:?0.0 UF?Rate?(mL/kg/hr) ??12/28/2023:?1.2 ??12/26/2023:?1.9 ??12/25/2023:?1.2 ADEQUACY?ASSESSMENT Adequacy?target?met.?Prescription?compliance?acceptable.?No?changes?indicated.? spKt/V,?URR ??12/26/2023:?1.69,?78.0 ??11/28/2023:?1.82,?80.0 ??11/05/2023:?1.73,?78.0 ACCESS?ASSESSMENT ??Access?Type:?AVGraft ??Access?SubType:?Biological?-?Bovine ??Access?Status:?Active?(In?Use)?-?01/31/2023 ??Access?Location:?Left?Upper?Arm ??Created:?09/28/2022 Flow ??10/10/2023:?506 ??09/07/2023:?1018 ??06/01/2023:?1131 Comments:?Check?access?flow ANEMIA?ASSESSMENT Comments:?On?IV?iron?and?JENNIFER?procotol HGB?at?goal.? HGB,?TSAT ??12/26/2023:?12.3,?30.0 ??12/19/2023:?12.0,?- ??12/12/2023:?12.2,?- ?? Ferritin ??12/26/2023:?597.0 ??10/24/2023:?394.0 ??08/22/2023:?797.0 Mircera,?IVP?(mcg) ??11/07/2023:?30 Iron?Sucrose?(Venofer)?(mg) ??12/16/2023:?100 ??12/12/2023:?100 ??12/10/2023:?100 BMM?ASSESSMENT Comments:?NO?new?labs?to?review PTH?controlled.?Calcium?controlled.?Phosphorus?controlled.?No?radha nges?indicated.? PTH,?Intact ??10/24/2023:?138.0 ??07/25/2023:?103.0 ?? Calcium,?Phosphorus ??12/26/2023:?8.8,?3.5 ??11/21/2023:?8.7,?3.1 ??10/24/2023:?8.8,?3.7 NUTRITION?ASSESSMENT Comments:?Focus?on?protein?in?diet Potassium?controlled.?Albumin?below?goal.?Referred?to?dietitian. Potassium,?Albumin ??12/26/2023:?4.1,?3.4 ??11/21/2023:?4.1,?3.8 ??10/24/2023:?3.9,?3.5 ?? eNPCR ??12/26/2023:?0.55 ??11/28/2023:?0.61 ??11/05/2023:?0.53 PHYSICAL?EXAM Exam?Not?Performed. DIAGNOSIS Chief?Complaint:?N18.6?End?stage?renal?disease Patient?data?updated?12/31/2023?at?9:28?AM Signed?By:?Keshia,?Ghazal,?ECONOMIC DEVELOPER??on?12/31/2023?9:30:35 AM END OF DOCUMENT
--- OUTSIDE RECORDS SUMMARY | 2024-03-25 07:04 | XMS_ITS ---
Author Name Yesi Madison Address [address] [place] [address] Phone [phone] Organization [facility] e, NA DOCUMENT DISCLAIMER Multiple document versions may exist, please be sure you review the latest version. The information in the [facility] [place] Progress Note Document represents a providers documented clinical note containing certain health and medical information. It may not contain the complete medical history for the patient and should be independently verified. The represented time in the document is Eastern Time PROVIDER ROUNDING NOTE COMP HD PROVIDER?ROUNDING?NOTE?COMP?HD Clinic:?[facility] Visit?date:?06/07/2022?00:00?Modality/setting:?IHD Rei?Bret?-?Chart?#:?[id number] Method?of?Interaction:?Face?to?face Date?of?Interaction:?12/16/2023 ?-?Patient?is?stable ?-?Optimal?weight?addressed?with?patient?and?staff. ?-?Medications?and?labs?reviewed. Patient?issues?include: He?is?for?a?fistulogram?this?week. Prior?Treatment:?12/12/2023? Dialyzer:?180NRe?Optiflux? Dialysate:?2.0?K,?2.5 Ca,?1.0?Mg,?100?Dextrose?(G2251)? Prescribed?Time:?4:0?Avg?BFR:?& #160;??410?Wt?Gain?(kg):?0.60? Actual?Time:?04:07?Avg?DFR:?600?&#16 0;EDW?(kg):?106? Volume?Management?Comments: Improving. Adequacy ?spKt/V?eKdrt/V?&#160 ; ???OLC?(Del)?spKtv?URR?%?1.82?11/28/23?? ?1.60?11/28/23?? ?1.51?0 12/12/23?? ?80?11/28/23? ?1.73?11/05/23?? ?1.50?11/05/23?? ?1.58?0 12/10/23?? ?78?11/05/23? ?1.74?11/01/23?? ?1.54?11/01/23?? ?1.69?0 12/07/23?? ?78?11/01/23? ?Potassium,?Serum?mEq/L?Bicarbonate?mEq/L??&# 160;?Creatinine?mg/dL?4.1?11/21/23? 26?11/21/23?2. 85?11/21/23?3.9?10/24/23? 25?10/24/23?3. 25?10/24/23?3.9?09/19/23? 27?09/19/23?4. 38?09/26/23?-?Adequacy?parameters?reviewed Adequacy ?-?Adequacy?target?met ?Sitting?BP?Pre?Sitting BP?Post?Systolic/Diastolic?Systolic/Diastolic?157?/?91??12/12/23?186?/?87??12/12/23?? ?169?/?104??12/10/23?176?/?90? 12/10/23?129?/?51??12/07/23?121?/?60??12/07/23?? Blood?Pressure ?-?Blood?pressure?controlled Fluid?Status ?-?Fluid?status?acceptable Interdialytic?Weight?Gain ?-?Interdialytic?weight?gain?acceptable Prescription?Compliance ?-?Prescription?compliance?acceptable ?-?Potassium?controlled Anemia ?HGB?g/dL? Transferrin?Sat.?(Calc)?%?Ferritin?ng/mL&#160 ;?12.2?12/12/23?25?11/21/23?394 ?10/24/23?? ?12.1?12/05/23?35?10/24/23?797 ?08/22/23?? ?11.4?11/28/23?29?09/19/23?496 ?07/25/23?? JENNIFER?Administrations ??30?mcg?Mircera?11/07/23 ??50?mcg?Mircera?05/30/23 ??30?mcg?Mircera?12/06/22 IV?Iron?Administrations ??100?mg?Venofer?12/12/23 ??100?mg?Venofer?12/10/23 ??100?mg?Venofer?12/07/23 ?-?Anemia?reviewed Bone?and?Mineral?Metabolism ??Calcium,?Total?mg/dL?? Calcium,?Corrected?mg/dL ?&#1 60;??Phosphorous?mg/dL??? PTH-Intact,?Plasma?pg/mL ??8.7?11/21/23? 8.9?11/21/23?3.1&#16 0;?11/21/23?138?10/24/23?8.8?10/24/23? 9.2?10/24/23?3.7&#16 0;?10/24/23?103?07/25/23?9.0?09/19/23? 9.1?09/19/23?5.4&#16 0;?09/19/23?102?05/02/23?Vitamin?D?25?Hydroxy?ng/mL? ?Vitamin?D?Analogue? Administrations?Calcimimetics?52.5?07/25/23?-?&#1 60;?-?37.6?01/24/23?-?&#1 60;?-?44.1?06/07/22?-?&#1 60;?-? PTH ?-?PTH?low ?-?Bone?and?mineral?metabolism?parameters?reviewed ?-?Calcium?controlled ?-?Phosphorus?controlled ?-?Counseled?regarding?dietary?compliance Ed?to?stop?drinking?coke. Nutrition ?Albumin?g/dL? eNPCR?g/kg/day?3.8?11/21/23?? ?0.61?11/28/23?? ?3.5?10/24/23?? ?0.53?11/05/23?? ?3.9?09/19/23?? ?1.03?11/01/23?? ?-?Nutrition?reviewed ?-?Caloric?intake?addressed Better. Home?Medications ?Ativan?(lorazepam) 1?mg,?oral,?1?tablet?every?eight?hours [severe?nausea] ??atorvastatin?(atorvastatin) 40?mg,?oral,?1?tablet?every?morning ??Aashish?Chewable?Aspirin?(aspirin) 81?mg,?oral,?1?tablet?once?a?day ??bumetanide?(bumetanide) 2?mg,?oral,?1?tablet?twice?a?day ??bupropion?HCl?(bupropion?hcl) 300?mg,?oral,?1?tablet?every?morning ??buspirone?(buspirone) 10?mg,?oral,?1?tablet?twice?a?day ??carvedilol?(carvedilol) 6.25?mg,?oral,?1?tablet?twice?a?day ??clopidogrel?(clopidogrel) 75?mg,?oral,?1?tablet?once?a?day ??diphenhydramine?HCl?(diphenhydramine?hcl) 50?mg,?oral,?1?capsule?once?a?day ??Eliquis?(apixaban) 2.5?mg,?oral,?1?tablet?twice?a?day ??fluoxetine?(fluoxetine) 40?mg,?oral,?1?capsule?once?a?day ??gabapentin?(gabapentin) 100?mg,?oral,?1?capsule?twice?a?day ??insulin?lispro?(insulin?lispro) 100?unit/mL,?subQ,?1?unit?twice?a?day [per?sliding?scale] ??isosorbide?mononitrate?(isosorbide?mononitrate) 30?mg,?oral,?1?tablet?once?a?day ??levothyroxine?(levothyroxine) 88?mcg,?oral,?1?tablet?every?morning ??morphine?(morphine) 15?mg,?oral,?15?mg?twice?a?day ??Mounjaro?(tirzepatide) 12.5?mg/0.5?mL,?subQ,?12.5?mg?once?a?week ??nitroglycerin?(nitroglycerin)... There?are?additional?active?home?medications?for?this?patien t.?Please?view?in?Clinical?Summary Vascular?Access?-?Active/Maturing ?Type?Position/Location?Status?Access?ID?AVGraft-Biological?-?Bovine?Upper&# 160;Arm-Left?Active?(In?Use)?[id number]?-?-?&# 160;?-? -?-?-?&# 160;?-? -? Access?Flows ??506mL?per?min?10/10/23 ??1018mL?per?min?09/07/23 ??1131mL?per?min?06/01/23 ?-?Vascular?access?reviewed ?-?Referral?made?for?access?revision/intervention Exam ?-?Vital?signs?reviewed Edema ?-?EXT?-?No?edema Feet ?-?EXT?-?no?ulcers Other ?-?AVF/AVG?positive?thrill/bruit Transplant?Status Topic Exploring?Alternative?Treatment?Options: Kidney?Transplant ?Person?Taught: ?-?Patient ?Additional?Education?Required:?No ?Date?Given:?06/18/2022 Interest?and?Eligibility?(If?changes?are?made,?Please?notify?SW?via?alert?below) ?Date?of?discussion?from?transplant?assessment:?09/26/2023 ?Patient?already?on?transplant?list??No ?Patient?interested?in?transplantation??Yes ?Has?patient's?physician?identified?one?or?more?exclusions per?the ?Contraindication?list?provided?by?the?transplant?center? 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 END OF DOCUMENT
--- OUTSIDE RECORDS SUMMARY | 2024-03-25 07:04 | XMS_ITS ---
Author Name Yesi Madison Address [address] [place], [place] [id number] Phone [phone] Organization [facility] e, NA DOCUMENT DISCLAIMER Multiple document versions may exist, please be sure you review the latest version. The information in the [facility] Progress Note Document represents a providers documented clinical note containing certain health and medical information. It may not contain the complete medical history for the patient and should be independently verified. The represented time in the document is Eastern Time PROVIDER ROUNDING NOTE COMPREHENSIVE Patient:?Rei?Bret,?1970,?53y,?M Dialysis?Location:[place] Attending?Staffing Assistant:?Migel Service?Date:?03/11/2024 Service?Provider:?Yesi?Los,? I?met?face?to?face?with?the?patient?today. OVERVIEW The?patient?presented?with?ESRD?on?dialysis Primary?cause?of?renal?failure:?Type?2?diabetes?mellitus&#16 0;with?diabetic?chronic?kidney?disease Comments:?Vss,?seen?on?hd?machine.??Bp?elevated.?? Medications?and?labs?reviewed. LAST?HOSPITALIZATION Discharge?Diagnosis:?R07.9?Chest?pain,?unspecified I20.0?Unstable?angina Admission?Date?10/28/23 Discharge?Date?10/30/23 Comments:?Lhc?with?one?pci:??now?has?hd?seven?stents. DIALYSIS?PRESCRIPTION ??IHD?3x?Week?Start?date:?03/03/24 ??Dialyzer:?180NRe?Optiflux ??BFR:?450 ??DFR:?Autoflow?1.5 ??Potassium:?2.0 ??Sodium:?138 ??EDW:?98.2 ??Duration:?4:00 ??Calcium:?2.5 ??Bicarb:?32 ??Rx?updated?on:?03/03/2024 TREATMENT?ASSESSMENT Comments:?Stable. BP?Stand?Pre ??03/05/2024:?146/53 ??03/03/2024:?125/67 BP?Sit?Pre ??03/07/2024:?131/85 ??03/05/2024:?161/66 ??03/03/2024:?128/56 BP?Stand?Post ??03/07/2024:?145/59 ??03/05/2024:?124/71 ??03/03/2024:?136/74 BP?Sit?Post ??03/07/2024:?153/91 ??03/05/2024:?146/53 ??03/03/2024:?140/66 Tx?Duration ??03/07/2024:?4:02 ??03/05/2024:?1:45 ??03/03/2024:?4:03 Missed?Treatments 0?-?last?30?days 1?-?last?60?days 9/14?-?recent FLUID?ASSESSMENT Comments:?Fluid?gains?have?been?doing?well?at?goal. EDW?(kg) ??03/07/2024:?98.2 ??03/05/2024:?98.2 ??03/03/2024:?99.2 Weight?Pre?(kg) ??03/07/2024:?97.9 ??03/05/2024:?97.7 ??03/03/2024:?97.9 Weight?Post?(kg) ??03/07/2024:?98.5 ??03/05/2024:?97.7 ??03/03/2024:?97.7 PWV?(kg) ??03/07/2024:?0.3 ??03/05/2024:?-0.5 ??03/03/2024:?-1.5 UF?Rate?(mL/kg/hr) ??03/07/2024:?-1.5 ??03/05/2024:?0 ??03/03/2024:?0.5 ADEQUACY?ASSESSMENT Comments:?Stable?trend spKt/V,?URR ??02/20/2024:?1.63,?77.0 ??01/23/2024:?1.73,?78.0 ??12/26/2023:?1.69,?78.0 ACCESS?ASSESSMENT ??Access?Type:?AVGraft ??Access?SubType:?Biological?-?Bovine ??Access?Status:?Active?(In?Use)?-?01/31/2023 ??Access?Location:?Left?Upper?Arm ??Created:?09/28/2022 Flow ??01/02/2024:?789 ??12/31/2023:?520 ??10/10/2023:?506 Vascular?access?reviewed.?Current?access?is?permanent?and?functioning?well. ANEMIA?ASSESSMENT Comments:?On?IV?iron?and?JENNIFER?procotol HGB,?TSAT ??03/05/2024:?12.4,?- ??02/27/2024:?11.6,?- ??02/20/2024:?12.7,?24.0 ?? Ferritin ??01/23/2024:?901.0 ??12/26/2023:?597.0 ??10/24/2023:?394.0 Iron?Sucrose?(Venofer)?(mg) ??12/16/2023:?100 ??12/12/2023:?100 ??12/10/2023:?100 BMM?ASSESSMENT Comments:?Stable?at?goal. PTH,?Intact ??01/23/2024:?171.0 ??10/24/2023:?138.0 ?? Calcium,?Phosphorus ??02/20/2024:?8.8,?3.9 ??01/23/2024:?8.5,?5.3 ??12/26/2023:?8.8,?3.5 NUTRITION?ASSESSMENT Comments:?Albumin?is?increasing. Potassium?controlled.?No?changes?indicated.? Potassium,?Albumin ??02/20/2024:?3.8,?3.7 ??01/23/2024:?4.1,?3.6 ??12/26/2023:?4.1,?3.4 ?? eNPCR ??02/20/2024:?0.46 ??01/23/2024:?0.83 ??12/26/2023:?0.55 PHYSICAL?EXAM Exam?Performed.?Vital?Signs?Reviewed.?CV?-?Blood?pressure&#1 60;noted.?EXT?-?No?edema.?EXT?-?No?ulcers.?AVF/AVG Positive?thrill/bruit. DIAGNOSIS Chief?Complaint:?N18.6?End?stage?renal?disease Patient?is?stable. Patient?data?updated?03/11/2024?at?11:07?AM Signed?By:?Los,?Yesi???on?03/11/2024?11:08:18?AM END OF DOCUMENT
--- OUTSIDE RECORDS SUMMARY | 2024-03-25 07:04 | XMS_ITS ---
Author Name Ghazal Schmitt Address [address] [place] [address] Phone [phone] Organization [facility] e, NA DOCUMENT DISCLAIMER Multiple document versions may exist, please be sure you review the latest version. The information in the [facility] Progress Note Document represents a providers documented clinical note containing certain health and medical information. It may not contain the complete medical history for the patient and should be independently verified. The represented time in the document is Eastern Time PROVIDER ROUNDING NOTE BASIC Patient:?Rei?Bret,?1970,?53y,?M Dialysis?Location:?[place] Attending?Fabric Worker Supervisor:?Migel Service?Date:?02/25/2024 Service?Provider:?Ghazal?Keshia,?PLANT CULTURE MANAGER I?met?face?to?face?with?the?patient?today. OVERVIEW The?patient?presented?with?ESRD?on?dialysis Primary?cause?of?renal?failure:?Type?2?diabetes?mellitus&#16 0;with?diabetic?chronic?kidney?disease Comments:?Vss,?seen?on?hd?machine.??Bp?elevated.?? Medications?and?labs?reviewed. LAST?HOSPITALIZATION Discharge?Diagnosis:?R07.9?Chest?pain,?unspecified I20.0?Unstable?angina Admission?Date?10/28/23 Discharge?Date?10/30/23 Comments:?Lhc?with?one?pci:??now?has?hd?seven?stents. DIALYSIS?PRESCRIPTION ??IHD?3x?Week?Start?date:?02/22/24 ??Dialyzer:?180NRe?Optiflux ??BFR:?450 ??DFR:?Autoflow?1.5 ??Potassium:?2.0 ??Sodium:?138 ??EDW:?100.5 ??Duration:?4:00 ??Calcium:?2.5 ??Bicarb:?32 ??Rx?updated?on:?02/22/2024 TREATMENT?ASSESSMENT Comments:?Elevated,?weight?decreasing? Begin?nifedipine?30?mg?xr?daily.?? BP?Stand?Pre ??02/22/2024:?123/78 ??02/18/2024:?110/66 BP?Sit?Pre ??02/22/2024:?147/86 ??02/20/2024:?150/84 ??02/18/2024:?133/66 BP?Stand?Post ??02/22/2024:?159/106 ??02/20/2024:?157/80 ??02/18/2024:?126/64 BP?Sit?Post ??02/22/2024:?147/86 ??02/20/2024:?134/95 ??02/18/2024:?130/66 Tx?Duration ??02/22/2024:?4:12 ??02/20/2024:?4:01 ??02/18/2024:?4:03 Missed?Treatments 1?-?last?30?days 1?-?last?60?days 9/14?-?recent FLUID?ASSESSMENT Comments:?Education?about?fluid?gains Fluid?gains?are?much?better. EDW?(kg) ??02/22/2024:?101.5 ??02/20/2024:?101.5 ??02/18/2024:?102.0 Weight?Pre?(kg) ??02/22/2024:?99.5 ??02/20/2024:?100.7 ??02/18/2024:?101.1 Weight?Post?(kg) ??02/22/2024:?100.1 ??02/20/2024:?100.9 ??02/18/2024:?101.5 PWV?(kg) ??02/22/2024:?-1.4 ??02/20/2024:?-0.6 ??02/18/2024:?-0.5 UF?Rate?(mL/kg/hr) ??02/22/2024:?-1.4 ??02/20/2024:?-0.5 ??02/18/2024:?-1 ADEQUACY?ASSESSMENT Comments:?Stable spKt/V,?URR ??02/20/2024:?1.63,?77.0 ??01/23/2024:?1.73,?78.0 ??12/26/2023:?1.69,?78.0 ACCESS?ASSESSMENT ??Access?Type:?AVGraft ??Access?SubType:?Biological?-?Bovine ??Access?Status:?Active?(In?Use)?-?01/31/2023 ??Access?Location:?Left?Upper?Arm ??Created:?09/28/2022 Flow ??01/02/2024:?789 ??12/31/2023:?520 ??10/10/2023:?506 Vascular?access?reviewed.?Current?access?is?permanent?and?functioning?well. ANEMIA?ASSESSMENT Comments:?On?IV?iron?and?JENNIFER?procotol HGB?at?goal.? HGB,?TSAT ??02/20/2024:?12.7,?24.0 ??02/13/2024:?12.5,?- ??02/06/2024:?12.0,?- ?? Ferritin ??01/23/2024:?901.0 ??12/26/2023:?597.0 ??10/24/2023:?394.0 Iron?Sucrose?(Venofer)?(mg) ??12/16/2023:?100 ??12/12/2023:?100 ??12/10/2023:?100 BMM?ASSESSMENT Referred?to?dietitian.? PTH,?Intact ??01/23/2024:?171.0 ??10/24/2023:?138.0 ?? Calcium,?Phosphorus ??02/20/2024:?8.8,?3.9 ??01/23/2024:?8.5,?5.3 ??12/26/2023:?8.8,?3.5 NUTRITION?ASSESSMENT Referred?to?dietitian.? Potassium,?Albumin ??02/20/2024:?3.8,?3.7 ??01/23/2024:?4.1,?3.6 ??12/26/2023:?4.1,?3.4 ?? eNPCR ??02/20/2024:?0.46 ??01/23/2024:?0.83 ??12/26/2023:?0.55 PHYSICAL?EXAM Exam?Not?Performed. DIAGNOSIS Chief?Complaint:?N18.6?End?stage?renal?disease Patient?data?updated?02/25/2024?at?7:58?AM Signed?By:?Keshia,?Ghazal,?PLANT CULTURE MANAGER??on?02/25/2024?8:22:38 AM END OF DOCUMENT
--- OUTSIDE RECORDS SUMMARY | 2024-03-25 07:04 | XMS_ITS ---
Author Name Yesi Madison Address [address] [place] [address] Phone [phone] Organization [facility] e, NA DOCUMENT DISCLAIMER Multiple document versions may exist, please be sure you review the latest version. The information in the [facility] Progress Note Document represents a providers documented clinical note containing certain health and medical information. It may not contain the complete medical history for the patient and should be independently verified. The represented time in the document is Eastern Time PROVIDER ROUNDING NOTE COMPREHENSIVE Patient:?Rei?Bret,?1970,?53y,?M Dialysis?Location:?[place] Attending?Sizing Machine Tender:?Migel Service?Date:?01/14/2024 Service?Provider:?Yesi?Los,? I?met?face?to?face?with?the?patient?today. OVERVIEW The?patient?presented?with?ESRD?on?dialysis Primary?cause?of?renal?failure:?Type?2?diabetes?mellitus&#16 0;with?diabetic?chronic?kidney?disease Comments:?Vss,?seen?on?hd?machine,??Reports?feeling?wel l,?denies?needs?for?me?today Medications?and?labs?reviewed. LAST?HOSPITALIZATION Discharge?Diagnosis:?R07.9?Chest?pain,?unspecified I20.0?Unstable?angina Admission?Date?10/28/23 Discharge?Date?10/30/23 Comments:?Lhc?with?one?pci:??now?has?hd?seven?stents. DIALYSIS?PRESCRIPTION ??IHD?3x?Week?Start?date:?01/09/24 ??Dialyzer:?180NRe?Optiflux ??BFR:?450 ??DFR:?Autoflow?1.5 ??Potassium:?2.0 ??Sodium:?138 ??EDW:?102.5 ??Duration:?4:00 ??Calcium:?2.5 ??Bicarb:?32 ??Rx?updated?on:?01/09/2024 TREATMENT?ASSESSMENT Comments:?Stable?at?goal?range. BP?Stand?Pre ??01/11/2024:?103/84 ??01/09/2024:?129/55 ??01/07/2024:?153/63 BP?Sit?Pre ??01/11/2024:?130/75 ??01/09/2024:?110/59 ??01/07/2024:?179/59 BP?Stand?Post ??01/11/2024:?135/74 ??01/09/2024:?96/63 ??01/07/2024:?137/70 BP?Sit?Post ??01/11/2024:?150/73 ??01/09/2024:?146/72 ??01/07/2024:?152/80 Tx?Duration ??01/11/2024:?4:01 ??01/09/2024:?4:03 ??01/07/2024:?4:03 Missed?Treatments 0?-?last?30?days 0?-?last?60?days FLUID?ASSESSMENT Comments:?Education?about?fluid?gains Doing?some?better:?assess?for?EDW?change?post?treatment EDW?(kg) ??01/11/2024:?102.5 ??01/09/2024:?103.3 ??01/07/2024:?103.3 Weight?Pre?(kg) ??01/11/2024:?104.2 ??01/09/2024:?104.7 ??01/07/2024:?105.6 Weight?Post?(kg) ??01/11/2024:?102.6 ??01/09/2024:?102.5 ??01/07/2024:?103.3 PWV?(kg) ??01/11/2024:?0.1 ??01/09/2024:?-0.8 ??01/07/2024:?0.0 UF?Rate?(mL/kg/hr) ??01/11/2024:?3.9 ??01/09/2024:?5.3 ??01/07/2024:?5.5 ADEQUACY?ASSESSMENT Comments:?Stable?trend?at?goal. spKt/V,?URR ??12/26/2023:?1.69,?78.0 ??11/28/2023:?1.82,?80.0 ??11/05/2023:?1.73,?78.0 ACCESS?ASSESSMENT ??Access?Type:?AVGraft ??Access?SubType:?Biological?-?Bovine ??Access?Status:?Active?(In?Use)?-?01/31/2023 ??Access?Location:?Left?Upper?Arm ??Created:?09/28/2022 Flow ??01/02/2024:?789 ??12/31/2023:?520 ??10/10/2023:?506 Vascular?access?reviewed.?Current?access?is?permanent?and?functioning?well. ANEMIA?ASSESSMENT Comments:?On?IV?iron?and?JENNIFER?procotol HGB,?TSAT ??01/09/2024:?11.8,?- ??01/02/2024:?12.1,?- ??12/26/2023:?12.3,?30.0 ?? Ferritin ??12/26/2023:?597.0 ??10/24/2023:?394.0 ??08/22/2023:?797.0 Mircera,?IVP?(mcg) ??11/07/2023:?30 Iron?Sucrose?(Venofer)?(mg) ??12/16/2023:?100 ??12/12/2023:?100 ??12/10/2023:?100 BMM?ASSESSMENT PTH?low.?Calcium?controlled.?Phosphorus?controlled.?BMM?meds&#160 ;adherence?acceptable.?No?changes?indicated.? PTH,?Intact ??10/24/2023:?138.0 ??07/25/2023:?103.0 ?? Calcium,?Phosphorus ??12/26/2023:?8.8,?3.5 ??11/21/2023:?8.7,?3.1 ??10/24/2023:?8.8,?3.7 NUTRITION?ASSESSMENT Comments:?Focus?on?protein?in?diet Potassium,?Albumin ??12/26/2023:?4.1,?3.4 ??11/21/2023:?4.1,?3.8 ??10/24/2023:?3.9,?3.5 ?? eNPCR ??12/26/2023:?0.55 ??11/28/2023:?0.61 ??11/05/2023:?0.53 PHYSICAL?EXAM Exam?Performed.?Vital?Signs?Reviewed.?CV?-?Blood?pressure&#1 60;noted.?EXT?-?No?edema.?EXT?-?No?ulcers.?AVF/AVG Positive?thrill/bruit. DIAGNOSIS Chief?Complaint:?N18.6?End?stage?renal?disease Patient?is?stable. 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 Continue?current?BP?medications. Patient?data?updated?01/14/2024?at?10:36?AM Signed?By:?Los,?Yesi,???on?01/14/2024?10:39:00?AM END OF DOCUMENT
--- OUTSIDE RECORDS SUMMARY | 2024-03-25 07:04 | XMS_ITS ---
Author Name Ghazal Schmitt Address [address] [place] [address] Phone [phone] Organization [facility] e, NA DOCUMENT DISCLAIMER Multiple document versions may exist, please be sure you review the latest version. The information in the [facility] Progress Note Document represents a providers documented clinical note containing certain health and medical information. It may not contain the complete medical history for the patient and should be independently verified. The represented time in the document is Eastern Time PROVIDER ROUNDING NOTE COMPREHENSIVE Patient:?Rei?Bret,?1970,?53y,?M Dialysis?Location:[place] Attending?Job Recruiter:?Migel Service?Date:?11/26/2023 Service?Provider:?Ghazal?Keshia,?STRATEGIC SOURCING MANAGER I?met?face?to?face?with?the?patient?today. OVERVIEW The?patient?presented?with?ESRD?on?dialysis Primary?cause?of?renal?failure:?Type?2?diabetes?mellitus&#16 0;with?diabetic?chronic?kidney?disease Comments:?Vss,?seen?on?hd?machine,??Reports?feeling?wel l,?denies?needs?for?me?today Medications?and?labs?reviewed. LAST?HOSPITALIZATION Discharge?Diagnosis:?I20.0?Unstable?angina Admission?Date?10/03/23 Discharge?Date?10/05/23 Comments:?Lhc?with?one?pci:??now?has?hd?seven?stents. DIALYSIS?PRESCRIPTION ??IHD?3x?Week?Start?date:?10/01/23 ??Dialyzer:?180NRe?Optiflux ??BFR:?450 ??DFR:?Autoflow?1.5 ??Potassium:?2.0 ??Sodium:?138 ??EDW:?108.5 ??Duration:?4:00 ??Calcium:?2.5 ??Bicarb:?32 ??Rx?updated?on:?10/01/2023 TREATMENT?ASSESSMENT Comments:?Post?Dy?BP?in?goal.??? Blood?pressure?controlled.?No?changes?indicated.? BP?Stand?Pre ??11/23/2023:?102/68 ??11/21/2023:?139/82 ??11/20/2023:?134/57 BP?Sit?Pre ??11/23/2023:?136/59 ??11/21/2023:?165/87 ??11/20/2023:?144/59 BP?Stand?Post ??11/23/2023:?137/62 ??11/21/2023:?164/75 ??11/20/2023:?167/85 BP?Sit?Post ??11/23/2023:?161/61 ??11/21/2023:?154/74 ??11/20/2023:?161/84 Tx?Duration ??11/23/2023:?4:03 ??11/21/2023:?4:05 ??11/20/2023:?4:03 Missed?Treatments 0?-?last?30?days 0?-?last?60?days FLUID?ASSESSMENT Comments:?Education?about?fluid?gains Doing?some?better:?assess?for?EDW?change?post?treatment EDW?(kg) ??11/23/2023:?108.5 ??11/21/2023:?108.5 ??11/20/2023:?108.5 Weight?Pre?(kg) ??11/23/2023:?106.0 ??11/21/2023:?107.6 ??11/20/2023:?108.1 Weight?Post?(kg) ??11/23/2023:?105.5 ??11/21/2023:?107.2 ??11/20/2023:?107.7 PWV?(kg) ??11/23/2023:?-3.0 ??11/21/2023:?-1.3 ??11/20/2023:?-0.8 UF?Rate?(mL/kg/hr) ??11/23/2023:?1.2 ??11/21/2023:?0.9 ??11/20/2023:?0.9 ADEQUACY?ASSESSMENT Comments:?No?new?labs?to?review spKt/V,?URR ??11/05/2023:?1.73,?78.0 ??11/01/2023:?1.74,?78.0 ??09/26/2023:?1.66,?77.0 ACCESS?ASSESSMENT ??Access?Type:?AVGraft ??Access?SubType:?Biological?-?Bovine ??Access?Status:?Active?(In?Use)?-?01/31/2023 ??Access?Location:?Left?Upper?Arm ??Created:?09/28/2022 Flow ??10/10/2023:?506 ??09/07/2023:?1018 ??06/01/2023:?1131 Comments:?Check?access?flow ANEMIA?ASSESSMENT Comments:?On?IV?iron?and?JENNIFER?procotol HGB?at?goal.?Iron?parameters?acceptable.?JENNIFER?dose?adequate.& #160;No?changes?indicated.? HGB,?TSAT ??11/21/2023:?11.6,?25.0 ??11/14/2023:?10.7,?- ??11/07/2023:?10.2,?- ?? Ferritin ??10/24/2023:?394.0 ??08/22/2023:?797.0 ??07/25/2023:?496.0 Mircera,?IVP?(mcg) ??11/07/2023:?30 Iron?Sucrose?(Venofer)?(mg) ??11/21/2023:?50 ??11/14/2023:?50 ??11/07/2023:?50 BMM?ASSESSMENT Comments:?NO?new?labs?to?review PTH,?Intact ??10/24/2023:?138.0 ??07/25/2023:?103.0 ?? Calcium,?Phosphorus ??11/21/2023:?8.7,?3.1 ??10/24/2023:?8.8,?3.7 ??09/19/2023:?9.0,?5.4 NUTRITION?ASSESSMENT Potassium?controlled.?Albumin?controlled.?No?changes?indicated.? Potassium,?Albumin ??11/21/2023:?4.1,?3.8 ??10/24/2023:?3.9,?3.5 ??09/19/2023:?3.9,?3.9 ?? eNPCR ??11/05/2023:?0.53 ??11/01/2023:?1.03 ??09/26/2023:?0.6 PHYSICAL?EXAM Exam?Not?Performed. DIAGNOSIS Chief?Complaint:?N18.6?End?stage?renal?disease Patient?data?updated?11/26/2023?at?8:49?AM Signed?By:?Keshia,?Ghazal,?STRATEGIC SOURCING MANAGER??on?11/26/2023?8:57:01 AM END OF DOCUMENT
--- OUTSIDE RECORDS SUMMARY | 2024-03-25 07:04 | XMS_ITS ---
Author Name Yesi Madison Address [address] [place], [place] [id number] Phone [phone] Organization [facility] e, NA DOCUMENT DISCLAIMER Multiple document versions may exist, please be sure you review the latest version. The information in the [facility] Progress Note Document represents a providers documented clinical note containing certain health and medical information. It may not contain the complete medical history for the patient and should be independently verified. The represented time in the document is Eastern Time PROVIDER ROUNDING NOTE COMPREHENSIVE Patient:?Rei?Bret,?1970,?53y,?M Dialysis?Location:?[place] Attending?Casting Technician:?Migel Service?Date:?02/11/2024 Service?Provider:?Yesi?Los,? I?met?face?to?face?with?the?patient?today. OVERVIEW The?patient?presented?with?ESRD?on?dialysis Primary?cause?of?renal?failure:?Type?2?diabetes?mellitus&#16 0;with?diabetic?chronic?kidney?disease Comments:?Vss,?seen?on?hd?machine,?? Medications?and?labs?reviewed. LAST?HOSPITALIZATION Discharge?Diagnosis:?R07.9?Chest?pain,?unspecified I20.0?Unstable?angina Admission?Date?10/28/23 Discharge?Date?10/30/23 Comments:?Lhc?with?one?pci:??now?has?hd?seven?stents. DIALYSIS?PRESCRIPTION ??IHD?3x?Week?Start?date:?02/08/24 ??Dialyzer:?180NRe?Optiflux ??BFR:?450 ??DFR:?Autoflow?1.5 ??Potassium:?2.0 ??Sodium:?138 ??EDW:?103 ??Duration:?4:00 ??Calcium:?2.5 ??Bicarb:?32 ??Rx?updated?on:?02/08/2024 TREATMENT?ASSESSMENT Comments:?Stable?at?goal?range. BP?Stand?Pre ??02/08/2024:?110/49 ??02/06/2024:?173/85 BP?Sit?Pre ??02/08/2024:?115/64 ??02/06/2024:?163/65 ??02/04/2024:?158/81 BP?Stand?Post ??02/04/2024:?180/81 BP?Sit?Post ??02/08/2024:?137/64 ??02/06/2024:?139/61 ??02/04/2024:?182/101 Tx?Duration ??02/08/2024:?3:23 ??02/06/2024:?3:50 ??02/04/2024:?4:10 Missed?Treatments 1?-?last?30?days 1?-?last?60?days /?-?recent FLUID?ASSESSMENT Comments:?Education?about?fluid?gains Fluid?gains?are?much?better. EDW?(kg) ??02/08/2024:?103.1 ??02/06/2024:?103.2 ??02/04/2024:?103.2 Weight?Pre?(kg) ??02/08/2024:?103.1 ??02/06/2024:?102.9 ??02/04/2024:?101.2 Weight?Post?(kg) ??02/08/2024:?103.0 ??02/06/2024:?103.1 ??02/04/2024:?101.7 PWV?(kg) ??02/08/2024:?-0.1 ??02/06/2024:?-0.1 ??02/04/2024:?-1.5 UF?Rate?(mL/kg/hr) ??02/08/2024:?0.3 ??02/06/2024:?-0.5 ??02/04/2024:?-1.2 ADEQUACY?ASSESSMENT Adequacy?target?met.?Prescription?compliance?acceptable.? spKt/V,?URR ??01/23/2024:?1.73,?78.0 ??12/26/2023:?1.69,?78.0 ??11/28/2023:?1.82,?80.0 ACCESS?ASSESSMENT ??Access?Type:?AVGraft ??Access?SubType:?Biological?-?Bovine ??Access?Status:?Active?(In?Use)?-?01/31/2023 ??Access?Location:?Left?Upper?Arm ??Created:?09/28/2022 Flow ??01/02/2024:?789 ??12/31/2023:?520 ??10/10/2023:?506 Vascular?access?reviewed.?Current?access?is?permanent?and?functioning?well. ANEMIA?ASSESSMENT Comments:?On?IV?iron?and?JENNIFER?procotol HGB,?TSAT ??02/06/2024:?12.0,?- ??01/30/2024:?12.1,?- ??01/23/2024:?12.3,?19.0 ?? Ferritin ??01/23/2024:?901.0 ??12/26/2023:?597.0 ??10/24/2023:?394.0 Iron?Sucrose?(Venofer)?(mg) ??12/16/2023:?100 ??12/12/2023:?100 ??12/10/2023:?100 BMM?ASSESSMENT PTH?controlled.?Calcium?controlled.?Phosphorus?controlled.?BMM?me ds?adherence?acceptable.?No?changes?indicated.? PTH,?Intact ??01/23/2024:?171.0 ??10/24/2023:?138.0 ??07/25/2023:?103.0 ?? Calcium,?Phosphorus ??01/23/2024:?8.5,?5.3 ??12/26/2023:?8.8,?3.5 ??11/21/2023:?8.7,?3.1 NUTRITION?ASSESSMENT Comments:?Focus?on?protein?in?diet Potassium,?Albumin ??01/23/2024:?4.1,?3.6 ??12/26/2023:?4.1,?3.4 ??11/21/2023:?4.1,?3.8 ?? eNPCR ??01/23/2024:?0.83 ??12/26/2023:?0.55 ??11/28/2023:?0.61 PHYSICAL?EXAM Exam?Performed.?Vital?Signs?Reviewed.?CV?-?Blood?pressure&#1 60;noted.?EXT?-?No?edema.?EXT?-?No?ulcers.?AVF/AVG Positive?thrill/bruit. DIAGNOSIS Chief?Complaint:?N18.6?End?stage?renal?disease Patient?is?stable. 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 Fluid?restriction. BPs?stable?at?goal?range. Continue?current?medications. 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 Good?control. Hga1c?q?3?months Patient?data?updated?02/11/2024?at?10:00?AM Signed?By:?Los,?Yesi???on?02/11/2024?10:02:32?AM END OF DOCUMENT
--- OUTSIDE RECORDS SUMMARY | 2024-03-25 07:04 | XMS_ITS ---
Author Name Ghazal Schmitt Address [address] [place] [address] Phone [phone] Organization [facility] e, NA DOCUMENT DISCLAIMER Multiple document versions may exist, please be sure you review the latest version. The information in the [facility] Progress Note Document represents a providers documented clinical note containing certain health and medical information. It may not contain the complete medical history for the patient and should be independently verified. The represented time in the document is Eastern Time PROVIDER ROUNDING NOTE COMPREHENSIVE Patient:?Rei?Bret,?1970,?53y,?M Dialysis?Location:?[facility] Attending?Psychiatric Registered Nurse:?Migel Service?Date:?10/08/2023 Service?Provider:?Ghazal?Keshia,?COMMERCIAL KITCHEN SERVICE TECHNICIAN I?met?face?to?face?with?the?patient?today. OVERVIEW The?patient?presented?with?ESRD?on?dialysis Primary?cause?of?renal?failure:?Type?2?diabetes?mellitus&#16 0;with?diabetic?chronic?kidney?disease Comments:?Vss,?seen?on?hd?machine=.?? He?is?for?a?nerve?conduction?study?of?his?LUE?for& #160;still?having?ongoing?numbness.?Had?fistulogram. Medications?and?labs?reviewed. LAST?HOSPITALIZATION Discharge?Diagnosis:?I20.0?Unstable?angina Admission?Date?05/18/23 Discharge?Date?05/19/23 DIALYSIS?PRESCRIPTION ??IHD?3x?Week?Start?date:?10/01/23 ??Dialyzer:?180NRe?Optiflux ??BFR:?450 ??DFR:?Autoflow?1.5 ??Potassium:?2.0 ??Sodium:?138 ??EDW:?108.5 ??Duration:?4:00 ??Calcium:?2.5 ??Bicarb:?32 ??Rx?updated?on:?10/01/2023 TREATMENT?ASSESSMENT Comments:?Has?had?some?higher?BPs.?Increased?coreg?to?6.25?mg?BID?last?month. Next?could?add?lisinopril?if?needed. Ongoing?education?about?fluid?gains. BPs?stable. BP?Stand?Pre ??10/08/2023:?103/45 ??10/05/2023:?156/92 ??10/01/2023:?150/66 BP?Sit?Pre ??10/08/2023:?126/80 ??10/05/2023:?129/53 ??10/01/2023:?144/73 BP?Stand?Post ??10/08/2023:?143/60 ??10/01/2023:?162/72 BP?Sit?Post ??10/08/2023:?164/62 ??10/05/2023:?137/87 ??10/01/2023:?173/87 Tx?Duration ??10/08/2023:?3:54 ??10/05/2023:?4:04 ??10/01/2023:?4:06 Missed?Treatments 0?-?last?30?days 0?-?last?60?days FLUID?ASSESSMENT Comments:?Education?about?fluid?gains Doing?some?better. EDW?(kg) ??10/08/2023:?108.5 ??10/05/2023:?108.5 ??10/01/2023:?107.5 Weight?Pre?(kg) ??10/08/2023:?109.3 ??10/05/2023:?108.5 ??10/01/2023:?109.7 Weight?Post?(kg) ??10/08/2023:?109.0 ??10/05/2023:?108.5 ??10/01/2023:?108.6 PWV?(kg) ??10/08/2023:?0.5 ??10/05/2023:?0.0 ??10/01/2023:?1.1 UF?Rate?(mL/kg/hr) ??10/08/2023:?0.7 ??10/05/2023:?0 ??10/01/2023:?2.5 ADEQUACY?ASSESSMENT spKt/V,?URR ??09/26/2023:?1.66,?77.0 ??09/21/2023:?1.76,?79.0 ??08/22/2023:?1.7,?78.0 ACCESS?ASSESSMENT ??Access?Type:?AVGraft ??Access?SubType:?Biological?-?Bovine ??Access?Status:?Active?(In?Use)?-?01/31/2023 ??Access?Location:?Left?Upper?Arm ??Created:?09/28/2022 Flow ??09/07/2023:?1018 ??06/01/2023:?1131 ??04/30/2023:?555 Vascular?access?reviewed.?Current?access?is?permanent?and?functioning?well. ANEMIA?ASSESSMENT Comments:?On?IV?iron?and?JENNIFER?procotol HGB?at?goal.? HGB,?TSAT ??09/26/2023:?12.5,?- ??09/19/2023:?12.4,?29.0 ??09/12/2023:?13.3,?- ?? Ferritin ??08/22/2023:?797.0 ??07/25/2023:?496.0 ??06/27/2023:?404.0 Iron?Sucrose?(Venofer)?(mg) ??08/17/2023:?100 ??08/15/2023:?100 ??08/13/2023:?100 BMM?ASSESSMENT Comments:?Ed?to?take?phos?binders?with?meals.??Reviewed?compliance.??Improving PTH,?Intact ??07/25/2023:?103.0 ??05/02/2023:?102.0 ?? Calcium,?Phosphorus ??09/19/2023:?9.0,?5.4 ??08/22/2023:?8.7,?4.9 ??07/25/2023:?8.9,?5.2 NUTRITION?ASSESSMENT Potassium?controlled.?Albumin?controlled.?No?changes?indicated.? Potassium,?Albumin ??09/19/2023:?3.9,?3.9 ??08/22/2023:?3.7,?3.8 ??07/25/2023:?5.2,?3.6 ?? eNPCR ??09/26/2023:?0.6 ??09/21/2023:?0.68 ??08/22/2023:?0.68 PHYSICAL?EXAM Exam?Not?Performed. DIAGNOSIS Chief?Complaint:?N18.6?End?stage?renal?disease Patient?data?updated?10/08/2023?at?7:16?PM Signed?By:?Keshia,?Ghazal,?COMMERCIAL KITCHEN SERVICE TECHNICIAN??on?10/08/2023?7:17:16 PM END OF DOCUMENT
--- OUTSIDE RECORDS SUMMARY | 2024-03-25 07:04 | XMS_ITS | Patient Health Record ---
Author Name Unknown Organization [facility] Address [address] [place] [address] Care Team Providers Care Straight Knife Machine Cutter Name Role Phone Kp Montanez DO Primary Care Provider UnavailShelley Renee Unavailable [phone] Pee Castaneda MD Unavailable Unavailable Ray Sherman Unavailable [phone] Migration, Provider Unavailable Unavailable Allergies Allergen (clinical [...] (substance) sulfa drugs Unknown Drug Allergy Active Reason For Referral Reason Rectal Bleed COLON Referring Provider First Name Pee Referring Provider Last Name Leonel Referring Provider Speciality Family Med icine Referred Organization [facility] Referred Provider Ray Sherman Referred Address [address] [place],[address] Referred Provider Specialty Gastroentero logy General Notes Taisha Godoy 09/22 04:14:39 PM >input output clerk Referral Priority Routine Medications Medication SIG (Take, Route, Frequency, Duration) Notes Start Date End Date Status Atorvastatin Calcium 40 MG 1 tablet Oral ly Once a day Active Bumetanide 2 MG 1 tablet Orally twic e a day Active Carvedilol 6.25 MG 1 tablet with food O rally Twice a day Active Aspirin 81 81 MG 1 tablet Orally Once a day Active buPROPion HCl ER (XL) 300 MG 1 tablet in the morning Orally Once a day Active busPIRone HCl 5 MG 1 tablet Orally Twic e a day Active Mounjaro 15 MG/0.5ML 0.5 ml Subcutaneous weekly Active Eliquis 2.5 MG 1 tablet Orally twic e daily Active Gabapentin 100 MG 1 capsule Orally Onc e a day Active GaviLAX 17 GM 1 packet mixed with 8 ounces of fluid Orally three time a day Active FLUoxetine HCl 20 MG 1 capsule Orally On ce a day Active Fluticasone Propionate 50 MCG/ACT 1 spray in each nostril as needed Nasally Once a day Active Losartan Potassium 50 MG 1 tablet Orally Once a day Active Metoprolol Tartrate 25 MG 1 tablet with food Orally Twice a day Active Isosorbide Mononitrate ER 30 MG 1 tablet in the morning Orally twice a day Active Levothyroxine Sodium 88 MCG 1 tablet in the morning on an empty stomach Orally Once a day Active Promethazine HCl 25 MG 1 tablet as neede d Orally every 12 hrs Active Ranolazine ER 500 MG 1 tablet Orally Twi ce a day Active Citalopram Hydrobromide 40 MG 1 tablet Orally Once a day Active Nitroglycerin 0.4 MG as directed Subling ual as needed Active Clopidogrel Bisulfate 75 MG 1 tablet Ora lly Once a day Active tiZANidine HCl 2 MG 1 tablet at bedtime as needed Orally Once a day Active traZODone HCl 100 MG 1 tablet at bedtime Orally Once a day Active RenaPlex-D - 1 tablet Orally daily Active Sevelamer Carbonate 800 MG 1 tablet with meals Orally Three times a day Active Tresiba FlexTouch 200 UNIT/ML 3 ml Subcutaneous daily Acti ve Stool Softener 100 MG 2 capsules Orally twice a day 02/19/2024 Active Social History Tobacco Use: Social History Observation Description Date Details (start date - stop date) Never Smoker NA - NA Tobacco Control (Standard) Question Answer Notes Tobacco use: Nonsmoker AUDIT-C (Standard) Question Answer Notes Did you have a drink containing alcohol in the p ast year? No Points 0 Interpretation Negative Problems Problem Type SNOMED Code ICD Code Onset Dates Problem Status W/U Status Risk Notes Problem Atherosclerotic heart disease of [place] coronary artery without angina pectoris (673530823423988 ) Atherosclerotic heart disease of [place] coronary artery without angina pectoris (I25.10) Active confirmed [id number] m ed Description:Patricia nary arteriosclerosis Problem Post percutaneous transluminal coronary angioplasty (872240825) Presence of coronary angioplasty implant and graft (Z95.5) Active confirmed [id number] Description:Hist ory of placement of stent for coronary artery disease Problem Essential hypertension (53882900) Essential primary hypertension (I10) Active confirmed [id number] m ed Description:Holger gn essential hypertension Vital Signs Heart Rate 82 /min 02/19/2024 Temperature 97.5 degrees Fahrenheit 02/19/2024 Respiratory Rate 18 /min 02/19/2024 Oximetry 93 % 02/19/2024 Weight-kg 102.06 kg 02/19/2024 Height 65 in 02/19/2024 Weight 225. lbs 02/19/2024 BMI 37.44 kg/m2 02/19/2024 Encounters Encounter Location Date Provider Diagnosis [facility] [address] [place] [address] 02/19/2024 Shelley Llanes Rectal bleeding K62.5 Migrated_Facility 0 0 03/14/2024 Provider Migration [facility]rated[facility]Facility 0 0 03/15/2024 Provider Migration [facility] [address] [place] [address] [facility] [address] [place] [address] 01/16/[address] [facility] [address] [place] [address] 02/19/2024 [facility] [address] [place] [address] 02/24/2024 [facility] [address] [place] [address] 02/25/2024 [facility] [address] [place] [address] 03/09/2024 [facility] Assessments Encounter Date Diagnosis (ICD Code) Assessment Notes Treatment Notes Treatment Clinical Notes 02/19/2024 Rectal bleeding (ICD-10 - K62.5) The patient has a prerequisite risk factors for development of colon cancer. I have discussed the options of diagnostic testing with their advantages and disadvantages. I have recommended diagnostic colonoscopy with possible biopsy and polypectomy. Risks and Benefits: The benefits, risks, and complications were presented to pt. The patient is aware of the risk of bleeding, perforation, infection, and anesthetic complications related to colonoscopy. The patient is aware that although colonoscopy is an accurate procedure, it does have some limitations. As a result, some lesions, including cancer may be missed by colonoscopy. Ample time was given to answer all questions. Instructions given for the bowel prep. Follow up will be determined after the colonoscopy. Refer back to PCP. 02/19/2024 Other Colonoscopy: Be fore Your Procedure material was printed, Learning About Foods That Are Good Sources of Fiber material was printed Plan Of Treatment Pending Test Test Name Order Date Diagnostic Colonoscopy-[id number] 02/19/2024 Insurance Providers Payer Name Payer Address Payer Phone Subscriber Number Group Number Insured Name Patient Relationship to Insured Coverage Start Date Coverage End Date [facility] Medicare Dual Complete PPO [address] [address] [place] [address] [phone] [id number] SMITHA DOWNEY Self - patient is the insured [place] Medicaid [address] [place] [address] [id number] SMITHA DOWNEY Self - patient is the insured Medical (General) History Medical History History ICD Code Coronary artery disease Arthritis Diabetes Hypertension Anxiety Congestive heart failure Depression Hyperlipidemia Hypothyroidism kidney stones myocardial infarction renal failure sleep apnea Surgical History Surgery Date(Month/Year) Open heart surgery for cardiac tamponade 2011 Bilateral Inguinal hernia repair (2 left 1 right) 2000 Coronary artery Stent placement April Appendectomy Cholecystectomy Left upper arm hemodialysis graft Port a cath placement Fasciotomy both lower legs for compartme nt syndrome
--- OUTSIDE RECORDS SUMMARY | 2024-03-25 07:04 | XMS_ITS ---
Author Name Ghazal Schmitt Address [address] [place] [address] Phone [phone] Organization [facility] e, NA DOCUMENT DISCLAIMER Multiple document versions may exist, please be sure you review the latest version. The information in the [facility] Progress Note Document represents a providers documented clinical note containing certain health and medical information. It may not contain the complete medical history for the patient and should be independently verified. The represented time in the document is Eastern Time PROVIDER ROUNDING NOTE COMPREHENSIVE Patient:?Rei?Bret,?1970,?53y,?M Dialysis?Location:?[facility] Attending?Director Of Grants:?Migel Service?Date:?11/12/2023 Service?Provider:?Ghazal?Keshia,?SAMPLE EXAMINER I?met?face?to?face?with?the?patient?today. OVERVIEW The?patient?presented?with?ESRD?on?dialysis Primary?cause?of?renal?failure:?Type?2?diabetes?mellitus&#16 0;with?diabetic?chronic?kidney?disease Comments:?Vss,?seen?on?hd?machine=.?? Medications?and?labs?reviewed. LAST?HOSPITALIZATION Discharge?Diagnosis:?I20.0?Unstable?angina Admission?Date?10/03/23 Discharge?Date?10/05/23 Comments:?[facility]?with?one?pci:??now?has?hd?seven?stents. DIALYSIS?PRESCRIPTION ??IHD?3x?Week?Start?date:?10/01/23 ??Dialyzer:?180NRe?Optiflux ??BFR:?450 ??DFR:?Autoflow?1.5 ??Potassium:?2.0 ??Sodium:?138 ??EDW:?108.5 ??Duration:?4:00 ??Calcium:?2.5 ??Bicarb:?32 ??Rx?updated?on:?10/01/2023 TREATMENT?ASSESSMENT BP?Stand?Pre ??11/09/2023:?160/86 ??11/07/2023:?129/57 ??11/05/2023:?100/55 BP?Sit?Pre ??11/09/2023:?160/98 ??11/07/2023:?144/58 ??11/05/2023:?118/70 BP?Stand?Post ??11/09/2023:?156/64 ??11/07/2023:?157/63 ??11/05/2023:?146/63 BP?Sit?Post ??11/09/2023:?169/68 ??11/07/2023:?165/75 ??11/05/2023:?135/65 Tx?Duration ??11/09/2023:?4:05 ??11/07/2023:?4:01 ??11/05/2023:?4:06 Missed?Treatments 0?-?last?30?days 0?-?last?60?days FLUID?ASSESSMENT Comments:?Education?about?fluid?gains Doing?some?better. EDW?(kg) ??11/09/2023:?108.5 ??11/07/2023:?108.5 ??11/05/2023:?108.5 Weight?Pre?(kg) ??11/09/2023:?107.2 ??11/07/2023:?108.2 ??11/05/2023:?110.7 Weight?Post?(kg) ??11/09/2023:?106.5 ??11/07/2023:?108.0 ??11/05/2023:?109.0 PWV?(kg) ??11/09/2023:?-2.0 ??11/07/2023:?-0.5 ??11/05/2023:?0.5 UF?Rate?(mL/kg/hr) ??11/09/2023:?1.6 ??11/07/2023:?0.5 ??11/05/2023:?3.8 ADEQUACY?ASSESSMENT Adequacy?target?met.?Prescription?compliance?acceptable.?No?changes?indicated.? spKt/V,?URR ??11/05/2023:?1.73,?78.0 ??11/01/2023:?1.74,?78.0 ??09/26/2023:?1.66,?77.0 ACCESS?ASSESSMENT ??Access?Type:?AVGraft ??Access?SubType:?Biological?-?Bovine ??Access?Status:?Active?(In?Use)?-?01/31/2023 ??Access?Location:?Left?Upper?Arm ??Created:?09/28/2022 Flow ??10/10/2023:?506 ??09/07/2023:?1018 ??06/01/2023:?1131 Vascular?access?reviewed. ANEMIA?ASSESSMENT Comments:?On?IV?iron?and?JENNIFER?procotol Just?completed?lhc?with?on?stent.? HGB?at?goal.? HGB ??11/07/2023:?10.2 ??11/05/2023:?10.4 ??11/01/2023:?10.6 ?? Ferritin ??10/24/2023:?394.0 ??08/22/2023:?797.0 ??07/25/2023:?496.0 Mircera,?IVP?(mcg) ??11/07/2023:?30 Iron?Sucrose?(Venofer)?(mg) ??11/07/2023:?50 ??08/17/2023:?100 ??08/15/2023:?100 BMM?ASSESSMENT PTH?controlled.?Calcium?controlled.?Phosphorus?controlled.?BMM?me ds?adherence?acceptable.?No?changes?indicated.? PTH,?Intact ??10/24/2023:?138.0 ??07/25/2023:?103.0 ??05/02/2023:?102.0 ?? Calcium,?Phosphorus ??10/24/2023:?8.8,?3.7 ??09/19/2023:?9.0,?5.4 ??08/22/2023:?8.7,?4.9 NUTRITION?ASSESSMENT Potassium?controlled.?Albumin?controlled.?No?changes?indicated.? Potassium,?Albumin ??10/24/2023:?3.9,?3.5 ??09/19/2023:?3.9,?3.9 ??08/22/2023:?3.7,?3.8 ?? eNPCR ??11/05/2023:?0.53 ??11/01/2023:?1.03 ??09/26/2023:?0.6 PHYSICAL?EXAM Exam?Not?Performed. DIAGNOSIS Chief?Complaint:?N18.6?End?stage?renal?disease Patient?data?updated?11/12/2023?at?7:57?AM Signed?By:?Keshia,?Ghazal,?SAMPLE EXAMINER??on?11/12/2023?8:04:21 AM END OF DOCUMENT
[2024-03-25 07:44] LABS: Glucose Point of Care 184 mg/dL (70-110)
[2024-03-25] MEDS: ranolazine (12HR) 500 mg Tablet PO ×2 (08:12→17:11)
[2024-03-25] MEDS: carvedilol 6.25 mg Tablet PO ×2 (08:12→17:11)
[2024-03-25] MEDS: tamsulosin 0.4 mg Capsule PO (08:12)
[2024-03-25] MEDS: pantoprazole DR 40 mg Tablet PO (08:12)
[2024-03-25] MEDS: clopidogrel 75 mg Tablet PO (08:12)
[2024-03-25] MEDS: NIFEdipine ER (24 hr) 30 mg Tablet PO (08:12)
[2024-03-25] MEDS: diphenhydrAMINE 50 mg/mL SDV 1mL IVP (08:12)
[2024-03-25] MEDS: aspirin 81 mg EC Tablet PO (08:12)
[2024-03-25] MEDS: BuSPIRONE 10 mg Tablet PO ×2 (08:12→17:11)
--- NOTE | 2024-03-25 08:26 | P.PN_ITS ---
Documented by User: Lorrie Madison 03/25/24 11:56 Subjective 2 Subjective: Patient is a 53 y.o. white male admitted for chest pain. Pertinent medical history includes CAD with stenting, ESRD receiving hemodialysis, pulmonary embolism, and T2DM. I visited this patient this morning and there were no notable overnight events per patient and nursing. Patient states he has no new concerns this morning. His chest pain is less bothersome today. Nursing states he has been receiving dilaudid every 4 hours. Medications: Reviewed: Yes Vitals/I&O/Wt Last Vital Signs Temp 97.9 F 03/25/24 07:23 Pulse 78 03/25/24 07:23 Resp 12 03/25/24 07:23 BP 153/93 03/25/24 07:23 Pulse Ox 94 03/25/24 07:23 O2 Del Method Room Air 03/25/24 07:23 O2 Flow Rate 2 03/25/24 04:00 03/24/24 03/25/24 03/25/24 22:59 06:59 14:59 Intake Total 214.45 / 214.45 59.572 / 274.022 Balance 214.45 / 214.45 59.572 / 274.022 Weight last 48 hrs Weight 213 lb 10.047 oz Weight 209 lb Physical Exam 2 Narrative: General: No acute distress. Appears stable. Access: Left subclavian port in place. HEENT: Normocephalic, atraumatic. Oropharynx is clear. Neck is supple. No lymphadenopathy or thyromegaly. Cardiovascular: RRR. No murmurs, rubs, or gallops heard. Pulmonary: Clear to auscultation bilaterally. No wheezing, rhonchi, or crackles. Abdomen: Soft, nontender. Positive bowel sounds. No obvious organomegaly. exams deferred. Extremities: No cyanosis, clubbing, or edema. LUE with AV fistula with thrill and bruit. Skin: No obvious rashes or lesions noted. Neuro: No obvious focal deficits. Data 03/25/24 03:05 03/25/24 03:45 A&P Assessment and plan (1) Chest pain: Patient admitted with chest discomfort concerning for unstable angina Has Hx of stents with last drug-eluting stent placed in October. Had stopped his aspirin, Plavix, and Eliquis in preparation for a fistulogram on [facility] at [facility]. Yesterday, baseline troponin was 77, with 120 minute of 75.44 and 6hr of 75.73. Suggesting against acute MT. Telemetry was reviewed with no concerning findings Today, interventional cardiology performed cardiac catheterization with balloon angioplasty of left circumflex and RCA Continue anticoagulation therapy Discontinue dilaudid Qualifiers: Chest pain type: unspecified Qualified Code(s): R07.9 - Chest pain, unspecified (2) Ischemic cardiomyopathy: See above (3) ESRD (end stage renal disease): Patient with end-stage renal disease on hemodialysis Nephrology consultation His normal dialysis days are Saturday. Dialysis held yesterday and today until after cardiac catheterization. (4) 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 mellitus: Patient with history of diabetes, with diabetic nephropathy and diabetic neuropathy Sliding scale insulin Consistent carb diet (5) Hypertension: Continue carvedilol, nifedipine Qualifiers: Hypertension type: primary hypertension Qualified Code(s): I10 - Essential (primary) hypertension Plan History of pulmonary embolism. Transition from heparin to eliquis Multiple other complaints as outlined in past medical history Full code currently Eliquis will suffice for DVT prophylaxis Coding Level of Care Code 31403 Diagnoses Chest pain R07.9 Chest pain type: unspecified Ischemic cardiomyopathy I25.5 ESRD (end stage renal disease) N18.6 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 mellitus E11.42 Primary hypertension I10 Hypertension type: primary hypertension Time Spent (min) 24 Documented by User: Rojas Garcia MD 03/25/24 12:05 Physical Exam 2 Narrative: General: No acute distress. Appears stable. Access: Left subclavian port in place. Cardiovascular: RRR. No murmurs, rubs, or gallops heard. Pulmonary: Clear to auscultation bilaterally. No wheezing, rhonchi, or crackles. Abdomen: Soft, nontender. Positive bowel sounds. No obvious organomegaly. Extremities: No cyanosis, clubbing, or edema. LUE with AV fistula with thrill and bruit. Data 03/25/24 03:05 03/25/24 03:45 A&P Assessment and plan (1) Chest pain: Patient admitted with chest discomfort concerning for unstable angina Has Hx of stents with last drug-eluting stent placed in October. Had stopped his aspirin, Plavix, and Eliquis in preparation for a fistulogram on Saturday at [facility]. Yesterday, baseline troponin was 77, with 120 minute of 75.44 and 6hr of 75.73. Suggesting against acute MT. This is a type II elevation. Telemetry was reviewed with no concerning findings Today, interventional cardiology performed cardiac catheterization with balloon angioplasty of left circumflex and RCA Continue anticoagulation therapy Discontinue dilaudid Qualifiers: Chest pain type: unspecified Qualified Code(s): R07.9 - Chest pain, unspecified (2) Ischemic cardiomyopathy: (3) ESRD (end stage renal disease): Patient with end-stage renal disease on hemodialysis Nephrology consultation appreciated His normal dialysis days are Saturday. Dialysis scheduled for today following angiogram (4) 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 mellitus: Patient with history of diabetes, with diabetic nephropathy and diabetic neuropathy Continue sliding scale insulin Consistent carb diet (5) Hypertension: Qualifiers: Hypertension type: primary hypertension Qualified Code(s): I10 - Essential (primary) hypertension Plan History of pulmonary embolism. Plan on transitioning from heparin to Eliquis at discharge. Multiple other complaints as outlined in past medical history Full code currently Heparin will suffice for DVT prophylaxis Likely discharge tomorrow Attestations 2 Medical Necessity Statement*: Needs continued hospitalization for close monitoring following angioplasty of circumflex and RCA. Diagnoses Chest pain R07.9 Chest pain type: unspecified Ischemic cardiomyopathy I25.5 ESRD (end stage renal disease) N18.6 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 mellitus E11.42 Primary hypertension I10 Hypertension type: primary hypertension Time Spent (min) 24
--- NOTE | 2024-03-25 08:45 | PM.PN ---
Subjective Subjective: The patient was seen and examined. Still has chest pain. No nausea vomiting or diarrhea. Denies shortness of breath. No headaches. Minimal edema. Medications: Reviewed: Yes Medication Review Details: Current Medications Acetaminophen (Acetaminophen 325 Mg Tablet) 650 mg PO Q6H PRN PRN Reason: Mild/Mod Pain Or Temp >/= 101 Last Admin: 03/24/24 16:46 Dose: 650 mg Aspirin (Aspirin 81 Mg Ec Tablet) 81 mg PO DAILY [facility] Last Admin: 03/25/24 08:12 Dose: 81 mg Atorvastatin Calcium (Atorvastatin 40 Mg Tablet) 40 mg PO [facility] Last Admin: 03/25/24 06:08 Dose: 40 mg Bupropion HCl (Bupropion Xl (24 Hr) 300 Mg Tablet) 300 mg PO [facility] Last Admin: 03/25/24 06:08 Dose: 300 mg Buspirone HCl (Buspirone 10 Mg Tablet) 10 mg PO BID [facility] Last Admin: 03/25/24 08:12 Dose: 10 mg Carvedilol (Carvedilol 6.25 Mg Tablet) 6.25 mg PO BID [facility] Last Admin: 03/25/24 08:12 Dose: 6.25 mg Clopidogrel Bisulfate (Clopidogrel 75 Mg Tablet) 75 mg PO DAILY [facility] Last Admin: 03/25/24 08:12 Dose: 75 mg Fluoxetine HCl (Fluoxetine 20 Mg Capsule) 40 mg PO [facility] Last Admin: 03/25/24 06:08 Dose: 40 mg Glucagon (Glucagon 1 Mg/Ml Kit 1 Ml) 1 mg IM ONCE PRN; Protocol PRN Reason: Adult Acute Hypoglycemia Nursing Prot. Heparin Sodium (Porcine) (Heparin 5,000 Unit/Ml Inj 1 Ml) 0 unit IVP PRN PRN; Protocol PRN Reason: Heparin Weight Based Protocol -Subsequent Bolus Hydromorphone HCl (Hydromorphone 1 Mg/Ml Inj 1 Ml) 0.4 mg IVP Q4H PRN PRN Reason: severe pain Last Admin: 03/25/24 06:02 Dose: 0.4 mg Nitroglycerin/Dextrose (Nitroglycerin Drip) 50 mg in 250 mls @ 0 mls/hr IV .Q0M [facility]; Protocol Last Titration: 03/24/24 19:39 Dose: 30 mcg/min, 9 mls/hr Heparin Sodium/Sodium Chloride (Heparin Drip) 25,000 unit in 500 mls @ 0 mls/hr IV CONT [facility]; Protocol Last Titration: 03/25/24 04:44 Dose: 0 unit/kg/hr, 0 mls/hr Dextrose (D5w) 500 mls @ 0 mls/hr IV ONCE PRN; Protocol PRN Reason: Adult Acute Hypoglycemia Prot Dextrose (D10w) 125 mls @ 750 mls/hr IV PRN PRN; Protocol PRN Reason: Adult Acute Hypoglycemia Nursing Protocol Dextrose (D10w) 250 mls @ 1,000 mls/hr IV PRN PRN; Protocol PRN Reason: Adult Acute Hypoglycemia Nursing Protocol Insulin Human Lispro (Insulin Lispro 100 Unit/1 Ml) 0 unit SUBCUT WM&BEDTIME [facility]; Protocol Last Admin: 03/25/24 08:05 Dose: Not Given Levothyroxine Sodium (Levothyroxine 88 Mcg Tablet) 88 mcg PO QAM [facility] Last Admin: 03/25/24 06:08 Dose: 88 mcg Lisinopril (Lisinopril 20 Mg Tablet) 20 mg PO DAILY [facility] Last Admin: 03/25/24 08:12 Dose: 20 mg Lorazepam (Lorazepam 1 Mg Tablet) 1 mg PO Q8H PRN PRN Reason: SEVER NAUSEA Last Admin: 03/25/24 01:07 Dose: 1 mg Nifedipine (Nifedipine Er (24 Hr) 30 Mg Tablet) 30 mg PO DAILY [facility] Last Admin: 03/25/24 08:12 Dose: 30 mg Pantoprazole Sodium (Pantoprazole Dr 40 Mg Tablet) 40 mg PO DAILY [facility] Last Admin: 03/25/24 08:12 Dose: 40 mg Ranolazine (Ranolazine (12hr) 500 Mg Tablet) 500 mg PO BID [facility] Last Admin: 03/25/24 08:12 Dose: 500 mg Tamsulosin HCl (Tamsulosin 0.4 Mg Capsule) 0.4 mg PO DAILY [facility] Last Admin: 03/25/24 08:12 Dose: 0.4 mg Vitals/I&O/Wt Last Vital Signs Temp 97.9 F 03/25/24 07:23 Pulse 78 03/25/24 07:23 Resp 12 03/25/24 07:23 BP 153/93 03/25/24 07:23 Pulse Ox 94 03/25/24 07:23 O2 Del Method Room Air 03/25/24 07:23 O2 Flow Rate 2 03/25/24 04:00 03/24/24 03/25/24 03/25/24 22:59 06:59 14:59 Intake Total 214.45 / 214.45 59.572 / 274.022 Balance 214.45 / 214.45 59.572 / 274.022 Weight last 48 hrs Weight 96.9 kg Weight 94.801 kg Physical Exam Narrative: Overweight gentleman. Requiring nasal cannula oxygen. Comfortable in bed. Vital signs noted. HEENT is normocephalic atraumatic. Neck is supple lungs have dull bases Heart irregular Abdomen soft positive bowel sounds. Extremities 1+ edema. Left upper extremity AV fistula with good thrill and bruit. Neuro awake alert oriented x 3 Data 03/25/24 03:05 03/25/24 03:45 A&P Assessment and plan (1) ESRD on dialysis: 53-year-old gentleman ESRD diabetes CAD vascular disease pulm embolism obesity, heart failure reduced EF of 35 to 40%. Patient presented with chest pain shortness of breath dyspnea on exertion. The patient for cardiac catheterization today. 1. ESRD -discussed with cardiology as needed preferred we held off on dialysis yesterday. Plan for dialysis today after cardiac catheterization. 2. CAD-per cardiology- s/p PCI to PDA-recently. The patient for repeat cardiac catheterization today. 3. Diabetic control per primary. 4. Monitor blood pressure with dialysis. 5. Hemoglobin okay for ESRD. No need for EPO 6. Phosphorus normal. Case discussed in detail with the patient and his nurse. Patient was seen and examined using audiovisual equipment and the aid of a nurse. Patient consented to telehealth visit and to dialysis. . Plan see above Attestations Medical Necessity Statement*: For cardiac catheterization and dialysis today Time Spent in Patient Care: 16 - 35 minutes (>than 50% of time spent in counselling and/or direct pt care on unit). Coding Level of Care Code Acute Code for Chg Fwd Diagnoses ESRD on dialysis N18.6; Z99.2
--- NOTE | 2024-03-25 08:58 | PC.CHAP ---
Pastoral Care Encounter/Spiritual Assessment Type of Contact [] Declined arts and crafts teacher visit [] Patient/Family/Request visit [] Outpatient visit [] Follow-up visit [] Physician referral [] Code/Alert [x] Routine visit [] Staff referral [] Actively dying [] Patient sleeping [] Family support [] [] Out of room [] Palliative care [] [] Receiving care in room [] Pre-surgical visit [] Trauma [] Long length of stay [] ICU visit [] Other: Relational/Emotional Strength [x] Patient feels connected with others/family/visitors/staff [] Distress [] Loneliness/isolation [] Abandonment Spirituality of Patient [x] Person of [place] [] Attends Mosque of their [place] [x] Believes in Prayer [] Reads Bible or Orthodox materials [] There are Spiritual issues to be addressed Web Production Artist Interventions [x] Prayer [x] Active listening [] Non-anxious presence [x] Spiritual/emotional support [] Crisis/trauma care [] Spiritual counseling [] Bereavement support [] Provided bereavement packet [] Provided Bible/devotional materials [] Provided toy/stuffed animal, coloring book to patient or family member [] Provided Communion [] Anointing/[place] [] Salvation [x] Completed spiritual assessment [] Other: Impact on Illness or Injury [] Angry [] Fearful [] Anxious [] Often cries [] Exhaustion [] Unable to work [] Unable to attend yazdanism [] Unable to walk/stand [] Unable to read [] Unable to drive [] Unable to eat/drink [] Unable to sleep [] Unable to be with family [] Patient intubated [] Other: Summary Time spent with patient 5 min
--- NOTE | 2024-03-25 09:17 | W.PM.OPSUD ---
Surgery/Procedure H&P Update DATE OF PROCEDURE: March 25, 2024 DATE H&P PERFORMED: 03/24/24 H&P UPDATE INFORMATION: I have reviewed H&P completed within last 30 days, I have examined patient prior to procedure and No changes to prior documentation PREOP DIAGNOSIS: Abnormal cardiac markers/ACS PLANNED PROCEDURE: Operation Date: 03/25/24 08:30 Proposed Procedures p Cardiac Catheterization(Left) - Rosi Vee MD PATIENT REASSESSED PRIOR TO SEDATION, WITH NO CHANGE NOTED: Yes PHYSICAL EXAM: alert, oriented x 3, clear to auscultation bilaterally and regular rate & rhythm AIRWAY EVAL/ANESTHESIA PLAN: ASA II, Risks, benefits & alternatives of sedation and/or procedure discussed and Patient agrees to continue as planned ADDITIONAL INFORMATION: Mallampati 2
--- NOTE | 2024-03-25 10:28 | PM.PN ---
Subjective Subjective: Patient underwent left heart catheterization today. He was noted to have significant 80% proximal RCA in-stent restenosis and 80% hazy distal circumflex stent edge stenosis both were treated with balloon angioplasty with excellent angiographic result as trying to avoid the extra layer of the stent. Rest of previously placed stent including proximal LAD and PDA appear to be patent with mild in-stent restenosis. Left ventricular end-diastolic pressure was 23 mmHg Vitals/I&O/Wt Last Vital Signs Temp 97.9 F 03/25/24 07:23 Pulse 78 03/25/24 07:23 Resp 12 03/25/24 07:23 BP 153/93 03/25/24 07:23 Pulse Ox 94 03/25/24 07:23 O2 Del Method Room Air 03/25/24 07:23 O2 Flow Rate 2 03/25/24 04:00 03/24/24 03/25/24 03/25/24 22:59 06:59 14:59 Intake Total 214.45 / 214.45 59.572 / 274.022 Balance 214.45 / 214.45 59.572 / 274.022 Weight last 48 hrs Weight 213 lb 10.047 oz Weight 209 lb Physical Exam Const: OTHER: GENERAL: Patient is alert, awake and oriented x3. HEART: Regular S1 and S2. No murmur, rub or gallop. LUNGS: Clear to auscultate bilaterally. CENTRAL NERVOUS SYSTEM: Grossly nonfocal. EXTREMITIES: Lower extremities with out edema bilaterally. Data 03/25/24 03:05 03/25/24 03:45 A&P Assessment and plan (1) Non-ST elevation (NSTEMI) myocardial infarction: Status post balloon angioplasty of the proximal RCA and distal circumflex for severe in-stent restenosis. Excellent angiographic result MEGHANA-3 flow was noted. Continue aspirin Plavix. Once PTT below 45 sheath will be pulled out. (2) Essential hypertension: Well-controlled continue medicine (3) ESRD (end stage renal disease): Patient can proceed with dialysis today (4) Contrast media allergy: Patient was treated with Benadryl and steroids Attestations Medical Necessity Statement*: I am expecting his stay to cross more than 2 minutes. Coding Level of Care Code Acute Code for [facility] Diagnoses Non-ST elevation (NSTEMI) myocardial infarction I21.4 Essential hypertension I10 ESRD (end stage renal disease) N18.6 Contrast media allergy Z91.041
[2024-03-25 11:43] LABS: Hepatitis B Core AB, Total Non-Reactive (Nonreactive); Hepatitis B Surface AB 390.5 (11.5-1000); Hepatitis B Surface Antigen Non-Reactive (Nonreactive)
--- NOTE | 2024-03-25 12:04 | PC.NURSE ---
Patient taken to dialysis. Sheath remains in place to right groin with pressure bag attached. Dressing is c,d,i. No s/s of bleeding or hematoma formation observed. PTT is pending.
[2024-03-25 12:34] LABS: Glucose Point of Care 192 mg/dL (70-110)
--- NOTE | 2024-03-25 13:39 | PC.NURSE ---
Patient c/o pain to chest and right groin 11/26. Patient refused tylenol saying i know that won't work. Informed Dr Garcia and received telephone order for oxycodone 5mg PO every 4 hours as needed for severe pain. RBVO
[2024-03-25] MEDS: oxyCODONE 5 mg IR Tab/Cap PO ×3 (13:58→22:58)
[2024-03-25 14:11] LABS: Partial Thromboplastin Time 107.5 SECONDS (23.9-36.7)
[2024-03-25 16:56] LABS: Partial Thromboplastin Time > 250.0 SECONDS (23.9-36.7)
[2024-03-25 17:36] LABS: Glucose Point of Care 197 mg/dL (70-110)
[2024-03-25] MEDS: insulin lispro 100 unit/1 mL SUBCUT ×2 (17:49→22:14)
[2024-03-25 19:56] LABS: Partial Thromboplastin Time 110.9 SECONDS (23.9-36.7)
[2024-03-25 21:07] LABS: Glucose Point of Care 266 mg/dL (70-110)
[2024-03-25] MEDS: temazepam 15 mg Capsule PO (22:55)
[2024-03-26] VITALS (7 sets, daily range): BP systolic 95–121; BP diastolic 41–66; PULSE 68–78; RESP 18–20; TEMP 36.4–36.8; O2SAT 95–97
[2024-03-26 01:57] LABS: Basophils % 0.1 %; Hematocrit 34.4 % (37-53); Lymphocytes # 0.8 10^3/uL (0.8-4.8); Lymphocytes % 9.1 %; Mean Corpuscular HGB Conc 34.3 g/dL (30-55); Mean Corpuscular Hemoglobin 33.1 pg (27-33); Mean Corpuscular Volume 96.4 fl (82-101); Mean Platelet Volume 9.8 fL (7.4-10.4); Monocytes # 0.8 10^3/uL (0.2-0.9); Monocytes % 9.9 %; Neutrophils % 80.4 %; Nucleated Red Blood Cells % 0 %; Platelet Count 286 10^3/cmm (157-399); Red Blood Count 3.57 10^6/uL (3.85-5.65); Red Cell Distribution Width 13.2 % (12.1-15.1); White Blood Count 8.21 10^3/uL (3.29-11.43)
[2024-03-26 02:12] LABS: Partial Thromboplastin Time 40.2 SECONDS (23.9-36.7)
[2024-03-26 02:19] LABS: Alanine Aminotransferase 16 U/L (0-41); Albumin Level 3.9 g/dL (3.5-5.2); Alkaline Phosphatase 104 U/L (40-130); Anion Gap 11.5 (5-19); Aspartate Amino Transferase 14 U/L (0-40); Blood Urea Nitrogen 22 mg/dL (6-20); Carbon Dioxide 30 mmol/L (22-29); Chloride 100 mmol/L (98-107); Globulin 1.8 g/dL (1.3-4.6); Glomerular Filtration Rate 18.3 mL/min (90-130); Glucose 247 mg/dL (65-115); Magnesium 1.8 mg/dL (1.7-2.3); Osmolality Calculated 298 mOsm/kg (285-295); Potassium 3.5 mmol/L (3.5-5.1); Sodium 138 mmol/L (136-145); Total Bilirubin 0.7 mg/dL (0.15-1.2); Total Protein 5.7 g/dL (6.6-8.7)
[2024-03-26] MEDS: fentaNYL 50 mcg/mL INJ 2mL IVP (02:43)
[2024-03-26] MEDS: buPROPion XL (24 HR) 300 mg Tablet PO (05:20)
[2024-03-26] MEDS: atorvastatin 40 mg Tablet PO (05:21)
[2024-03-26] MEDS: levothyroxine 88 mcg Tablet PO (05:21)
[2024-03-26] MEDS: fluoxetine 20 mg Capsule 40 MG PO (05:21)
[2024-03-26 06:44] LABS: Glucose Point of Care 275 mg/dL (70-110)
[2024-03-26] MEDS: oxyCODONE 5 mg IR Tab/Cap PO (07:35)
[2024-03-26] MEDS: tamsulosin 0.4 mg Capsule PO (07:36)
[2024-03-26] MEDS: pantoprazole DR 40 mg Tablet PO (07:36)
[2024-03-26] MEDS: NIFEdipine ER (24 hr) 30 mg Tablet PO (07:36)
[2024-03-26] MEDS: ranolazine (12HR) 500 mg Tablet PO (07:36)
[2024-03-26] MEDS: carvedilol 6.25 mg Tablet PO (07:36)
[2024-03-26] MEDS: BuSPIRONE 10 mg Tablet PO (07:36)
[2024-03-26] MEDS: aspirin 81 mg EC Tablet PO (07:36)
--- NOTE | 2024-03-26 07:36 | P.PN_ITS ---
Subjective 2 Subjective: The patient was seen and examined. His physician was in the room. Patient has no complaints. The patient is postop day #1 status postcardiac catheterization where he had 80% proximal RCA in-stent restenosis and 80% hazy distal circumflex stent edge stenosis both were treated with balloon angioplasty. The patient would like to go home. He has no nausea no vomiting no fevers no chills. No hearing nursing problems. Medications: Reviewed: Yes Medication Review Details: Current Medications Acetaminophen (Acetaminophen 325 Mg Tablet) 650 mg PO Q6H PRN PRN Reason: Mild/Mod Pain Or Temp >/= 101 Last Admin: 03/24/24 16:46 Dose: 650 mg Al Hydrox/Mg Hydrox/Simethicone (Cbdo-Qcd-Oqidlopne-Yunior 30 Ml Udc) 30 ml PO Q15M PRN PRN Reason: INDIGESTION Aspirin (Aspirin 81 Mg Ec Tablet) 81 mg PO DAILY [facility] Last Admin: 03/25/24 08:12 Dose: 81 mg Atorvastatin Calcium (Atorvastatin 40 Mg Tablet) 40 mg PO QAM [facility] Last Admin: 03/26/24 05:21 Dose: 40 mg Atropine Sulfate (Atropine 1 Mg/Ml Sdv 1 Ml) 0.5 mg IVP PRN PRN PRN Reason: Symptomatic bradycardia Bupropion HCl (Bupropion Xl (24 Hr) 300 Mg Tablet) 300 mg PO QAM [facility] Last Admin: 03/26/24 05:20 Dose: 300 mg Buspirone HCl (Buspirone 10 Mg Tablet) 10 mg PO BID [facility] Last Admin: 03/25/24 17:11 Dose: 10 mg Carvedilol (Carvedilol 6.25 Mg Tablet) 6.25 mg PO BID [facility] Last Admin: 03/25/24 17:11 Dose: 6.25 mg Clopidogrel Bisulfate (Clopidogrel 75 Mg Tablet) 75 mg PO DAILY [facility] Last Admin: 03/25/24 08:12 Dose: 75 mg Fluoxetine HCl (Fluoxetine 20 Mg Capsule) 40 mg PO QAM [facility] Last Admin: 03/26/24 05:21 Dose: 40 mg Glucagon (Glucagon 1 Mg/Ml Kit 1 Ml) 1 mg IM ONCE PRN; Protocol PRN Reason: Adult Acute Hypoglycemia Nursing Prot. Heparin Sodium (Porcine) (Heparin 5,000 Unit/Ml Inj 1 Ml) 5,000 unit SUBCUT Q12H [facility] Last Admin: 03/25/24 22:14 Dose: Not Given Dextrose (D5w) 500 mls @ 0 mls/hr IV ONCE PRN; Protocol PRN Reason: Adult Acute Hypoglycemia Prot Dextrose (D10w) 125 mls @ 750 mls/hr IV PRN PRN; Protocol PRN Reason: Adult Acute Hypoglycemia Nursing Protocol Dextrose (D10w) 250 mls @ 1,000 mls/hr IV PRN PRN; Protocol PRN Reason: Adult Acute Hypoglycemia Nursing Protocol Insulin Human Lispro (Insulin Lispro 100 Unit/1 Ml) 0 unit SUBCUT WM&BEDTIME [facility]; Protocol Last Admin: 03/25/24 22:14 Dose: 8 unit Levothyroxine Sodium (Levothyroxine 88 Mcg Tablet) 88 mcg PO QAM [facility] Last Admin: 03/26/24 05:21 Dose: 88 mcg Lorazepam (Lorazepam 1 Mg Tablet) 1 mg PO Q8H PRN PRN Reason: SEVER NAUSEA Last Admin: 03/25/24 13:20 Dose: 1 mg Magnesium Hydroxide (Magnesium Hydroxide 30 Ml Udc) 30 ml PO DAILY PRN PRN Reason: CONSTIPATION Naloxone HCl (Naloxone 0.4 Mg/Ml Sdv) 0.1 mg IVP Q2M PRN PRN Reason: RESPIRATORY RATE < 8/MIN Nifedipine (Nifedipine Er (24 Hr) 30 Mg Tablet) 30 mg PO DAILY [facility] Last Admin: 03/25/24 08:12 Dose: 30 mg Nitroglycerin (Nitroglycerin 0.4 Mg Sublingual Tablet) 0.4 mg SUBLINGUAL Q5M PRN PRN Reason: CHEST PAIN Oxycodone HCl (Oxycodone 5 Mg Ir Tab/Cap) 5 mg PO Q4H PRN PRN Reason: MODERATE PAIN Last Admin: 03/25/24 22:58 Dose: 5 mg Pantoprazole Sodium (Pantoprazole Dr 40 Mg Tablet) 40 mg PO DAILY [facility] Last Admin: 03/25/24 08:12 Dose: 40 mg Ranolazine (Ranolazine (12hr) 500 Mg Tablet) 500 mg PO BID [facility] Last Admin: 03/25/24 17:11 Dose: 500 mg Tamsulosin HCl (Tamsulosin 0.4 Mg Capsule) 0.4 mg PO DAILY [facility] Last Admin: 03/25/24 08:12 Dose: 0.4 mg Temazepam (Temazepam 15 Mg Capsule) 15 mg PO BEDTIME PRN PRN Reason: INSOMNIA Last Admin: 03/25/24 22:55 Dose: 15 mg Vitals/I&O/Wt Last Vital Signs Temp 98.0 F 03/26/24 04:00 Pulse 68 03/26/24 05:36 Resp 19 H 03/26/24 04:00 BP 100/50 03/26/24 04:00 Pulse Ox 95 03/26/24 04:00 O2 Del Method Nasal Cannula 03/26/24 04:00 O2 Flow Rate 2 03/25/24 04:00 03/25/24 03/26/24 03/26/24 22:59 06:59 14:59 Intake Total 1260 / 1412.85 0 / 1412.85 Output Total 3525 / 3525 Balance -2265 / -2112.15 0 / -2.15 Weight last 48 hrs Weight 94.6 kg Weight 93.8 kg Weight 96.9 kg Weight 94.801 kg Physical Exam 2 Narrative: Overweight gentleman.. Comfortable in bed. Vital signs noted. HEENT is normocephalic atraumatic. Neck is supple lungs clear Heart irregular Abdomen soft positive bowel sounds. Extremities 1+ edema. Left upper extremity AV fistula with good thrill and bruit. Neuro awake alert oriented x 3 Data 03/26/24 01:49 03/26/24 01:49 A&P Assessment and plan (1) ESRD on dialysis: 53-year-old gentleman ESRD diabetes CAD vascular disease pulm embolism obesity, heart failure reduced EF of 35 to 40%. Patient presented with chest pain shortness of breath dyspnea on exertion. The patient is post -op day #1 s/p cardiac catheterization. 1. ESRD -status post hemodialysis yesterday. Currently blood pressure on low side. Patient is oxygenating well. Potassium is 3.5 bicarbonate is 30. Will hold on dialysis today. Patient can continue with Bumex. He is advised to call for sending us. If he is short of breath to go to his dialysis center tomorrow for dialysis if not he can hold till Saturday, March 28. 2. CAD-per cardiology- s/p PCI to PDA-recently. Status post circumflex and distal RCA in-stent stenosis angioplasties done yesterday March 25, 2024. 3. Diabetic control per primary. 4. Blood pressure on low side. However patient has history A-fib. Patient is on Coreg and nifedipine. Can discuss with cardiology if we can decrease these medications. If not monitor blood pressure closely. May need some midodrine. 5. Hemoglobin okay for ESRD. No need for EPO 6. Phosphorus normal to low no need for binders. No aluminum please with ESRD. Case discussed in detail with the patient and his physician. Patient was seen and examined using audiovisual equipment and the aid of a nurse. Patient consented to telehealth visit and to dialysis. . Plan see above Attestations 2 Medical Necessity Statement*: Discharge as per cardiology and medicine. Time Spent in Patient Care: 16 - 35 minutes (>than 50% of time sp ent in counselling and/or direct pt care on unit) . Coding Level of Care Code Acute Code for Chg Fwd Diagnoses ESRD on dialysis N18.6; Z99.2
[2024-03-26] MEDS: clopidogrel 75 mg Tablet PO (07:37)
[2024-03-26] MEDS: insulin lispro 100 unit/1 mL SUBCUT (07:37)
--- NOTE | 2024-03-26 08:08 | P.DS_ITS ---
Discharge Providers Date of Admission: 03/25/24 12:02 Date of Discharge: March 26, 2024 Attending Provider at Admission: Rojsa Garcia MD Attending Provider at Discharge: Rojas Garcia MD Diagnoses at Discharge Discharge Diagnosis (1) ESRD on dialysis: Status: Inactive Reason for Visit Reason for Visit: Cp, SOB Hospital Course Hospital Course Mr. Queen is a 53-year-old white male who presented to hospital complaining of chest discomfort. Cardiac enzymes were slightly elevated but flat. He was placed on a nitroglycerin drip, and heparin drip. He disclosed he had stopped his aspirin, Plavix, and Eliquis 2 days prior to admission, pending a fistulogram. Angiogram was able to be performed March 25, recommended by cardiology. This demonstrated significant disease, and angioplasty was required in his circumflex, RCA. No drug-eluting stent was placed. He recovered well, chest discomfort went away, right groin showed no obvious complications from procedure, and he was able to be discharged on March 26. He did receive dialysis services during his hospital stay secondary to his end-stage renal disease on hemodialysis. He will resume dialysis on Saturday. He was told to initiate his Eliquis following fistulogram in [place] per their protocol. He will be holding it until this is done. He was able to ask questions and agreed with the plan. Physical Exam Narrative: General Exam no distress Neck is supple Cardiovascular regular rate rhythm Lungs clear Abdomen soft Extremities no sinus clubbing edema, right groin without significant hematoma, left AV fistula with thrill. 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 Laboratory Results WBC 8.21 10^3/uL (3.29-11.43) 03/26/24 01:49 RBC 3.57 10^6/uL (3.85-5.65) L 03/26/24 01:49 Hgb 11.80 g/dL (11.27-16.99) 03/26/24 01:49 Hct 34.4 % (37-53) L 03/26/24 01:49 MCV 96.4 fl (82-101) 03/26/24 01:49 MCH 33.1 pg (27-33) H 03/26/24 01:49 MCHC 34.3 g/dL (30-55) 03/26/24 01:49 RDW 13.2 % (12.1-15.1) 03/26/24 01:49 Plt Count 286 10^3/cmm (157-399) 03/26/24 01:49 MPV 9.8 fL (7.4-10.4) 03/26/24 01:49 Neut % (Auto) 80.4 % 03/26/24 01:49 Lymph % (Auto) 9.1 % 03/26/24 01:49 [place] % (Auto) 9.9 % 03/26/24 01:49 Eos % (Auto) 0.0 % 03/26/24 01:49 Baso % (Auto) 0.1 % 03/26/24 01:49 Neut # (Auto) 6.60 10^3/uL (1.8-7.7) 03/26/24 01:49 Lymph # (Auto) 0.8 10^3/uL (0.8-4.8) 03/26/24 01:49 [place] # (Auto) 0.8 10^3/uL (0.2-0.9) 03/26/24 01:49 Eos # (Auto) 0.0 10^3/uL (0.0-0.8) 03/26/24 01:49 Baso # (Auto) 0.0 10^3/uL (0.0-0.1) 03/26/24 01:49 Nucleated RBC % (auto) 0 % 03/26/24 01:49 Nucleated RBCs # 0.0 /100WBC 03/26/24 01:49 APTT 40.2 SECONDS (23.9-36.7) H D 03/26/24 01:49 Sodium 138 mmol/L (136-145) 03/26/24 01:49 Potassium 3.5 mmol/L (3.5-5.1) 03/26/24 01:49 Chloride 100 mmol/L (98-107) 03/26/24 01:49 Carbon Dioxide 30 mmol/L (22-29) H 03/26/24 01:49 Anion Gap 11.5 (5-19) 03/26/24 01:49 BUN 22 mg/dL (6-20) H 03/26/24 01:49 Creatinine 3.5 mg/dL (0.7-1.2) H 03/26/24 01:49 GFR Calculation 18.3 mL/min (90-130) L 03/26/24 01:49 Glucose 247 mg/dL (65-115) H 03/26/24 01:49 POC Glucose 275 mg/dL (70-110) H 03/26/24 06:32 Calculated Osmolality 298 mOsm/kg (285-295) H 03/26/24 01:49 Calcium 9.0 mg/dL (8.5-10.5) 03/26/24 01:49 Phosphorus 2.0 mg/dL (2.5-4.5) L 03/26/24 01:49 Magnesium 1.8 mg/dL (1.7-2.3) 03/26/24 01:49 Total Bilirubin 0.7 mg/dL (0.15-1.2) 03/26/24 01:49 AST 14 U/L (0-40) 03/26/24 01:49 ALT 16 U/L (0-41) 03/26/24 01:49 Alkaline Phosphatase 104 U/L (40-130) 03/26/24 01:49 Troponin T Baseline Cancelled 03/24/24 08:14 Troponin T 120 Minute 75.44 ng/L (0-15) H 03/24/24 09:21 Delta Troponin T -1.56 ABS# (0-10) L 03/24/24 09:21 Troponin T Hi Sens 6Hr 75.73 ng/L (0-15) H 03/24/24 13:33 Troponin T Hi Sens 6Hr Delta -1.27 ng/L (0-12) L 03/24/24 13:33 Total Protein 5.7 g/dL (6.6-8.7) L 03/26/24 01:49 Albumin 3.9 g/dL (3.5-5.2) 03/26/24 01:49 Globulin 1.8 g/dL (1.3-4.6) 03/26/24 01:49 Hep Bs Antigen Non-reactive (Nonreactive) 03/25/24 03:45 Hep Bs Antibody 390.5 (11.5-1000) 03/25/24 03:45 Hep B Core Total Ab Non-reactive (Nonreactive) 03/25/24 03:45 Hepatitis C Antibody Non-reactive (Nonreactive) 03/24/24 13:33 Vitals Last Vital Signs Temp 97.5 F L 03/26/24 08:00 Pulse 74 03/26/24 08:00 Resp 20 H 03/26/24 08:00 BP 121/66 03/26/24 08:00 Pulse Ox 97 03/26/24 08:00 O2 Del Method Room Air 03/26/24 08:00 O2 Flow Rate 2 03/25/24 04:00 Discharge Plan Discharge Patient Disposition: Home Condition: Stable Prescriptions: New pantoprazole 40 mg Tablet,Delayed Release (Dr/Ec) 40 mg PO DAILY Qty: 30 0RF Continued (DME) Diabetic Shoes with Custom insoles See Rx Instructions .Route .MEDSUPPLY Qty: 1 0RF Rx Instructions: As directed (DME) AFO to left See Rx Instructions .Route .MEDSUPPLY Qty: 1 0RF Rx Instructions: As directed by [facility] bupropion HCl 300 mg tablet extended release 24 hr 300 mg PO QAM Qty: 30 2RF buspirone 10 mg tablet 10 mg PO BID Qty: 60 2RF fluoxetine 40 mg capsule 40 mg PO QAM Qty: 30 2RF nifedipine 30 mg tablet extended release 30 mg PO DAILY atorvastatin 40 mg tablet 40 mg PO QAM Qty: 90 2RF nitroglycerin [Nitrostat] 0.4 mg tablet, sublingual 0.4 mg SUBLINGUAL Q5M PRN (Reason: Chest Pain) Qty: 25 2RF Rx Instructions: do not exceed 3 doses per episode (DME) Dexcom G7 Sensor Device See Rx Instructions .ROUTE .COMPLEX Qty: 9 1RF Dose Instruction: CHANGE every 10 DAYS Rx Instructions: CHANGE every 10 DAYS Tresiba FlexTouch U-200 200 unit/mL (3 mL) insulin pen See Rx Instructions .ROUTE .COMPLEX Qty: 9 2RF Dose Instruction: INJECT 40 UNITS SUBCUTANEOUSLY AT BEDTIME Rx Instructions: INJECT 40 UNITS SUBCUTANEOUSLY AT BEDTIME Mounjaro 15 mg/0.5 mL pen injector See Rx Instructions .ROUTE .COMPLEX Qty: 2 2RF Dose Instruction: inject 15mg (0.5ml) SUBCUTANEOUSLY EVERY 7 DAYS Rx Instructions: inject 15mg (0.5ml) SUBCUTANEOUSLY EVERY 7 DAYS levothyroxine 88 mcg tablet 88 mcg PO QAM gabapentin 100 mg capsule 100 mg PO BID hydrocortisone [Procto-Med HC] 2.5 % cream with perineal applicator See Rx Instructions .ROUTE .COMPLEX Rx Instructions: APPLY THIN LAYER TO AFFECTED AREA TWO TO FOUR TIMES A DAY. 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 RenaPlex-D 800 mcg-12.5 mg -2,000 unit tablet 1 tab PO DAILY aspirin 81 mg Tablet,Delayed Release (Dr/Ec) 81 mg PO DAILY Qty: 90 3RF Eliquis 2.5 mg tablet 2.5 mg PO BID Qty: 60 2RF carvedilol 6.25 mg tablet 6.25 mg PO BID Qty: 90 0RF clopidogrel 75 mg tablet 75 mg PO DAILY Qty: 90 4RF Discontinued trazodone 100 mg tablet 400 mg PO .HS PRN (Reason: insomnia) Qty: 120 2RF Discharge Orders: Discharge Order (Routine); Ordered 03/26/24 Ordered By: Rojas Garcia Referrals: Rosi Vee MD [Physician] - 4-7 days (Follow-up in cardiology clinic, post cath, can be with Amalia Mccain.) Discharge Diet: Usual diet Discharge Activity: Increase activity as tolerated and Limit activity as instructed Patient Instructions: Coronary Angioplasty (DC), Opioid Safety Activity Restrictions/Additional Instructions: Please follow instructions on your Eliquis, to hold until your fistulogram, then resume. Follow-up with cardiology clinic next week Return sooner for any concerns Monitor for any bleeding Please arrange follow-up with primary care provider 3 to 5 days Keep dialysis appointment on Saturday. Hold discharge until okayed by cardiology. Discharge Attestations Time Spent in Discharge Care*: greater than 30 min Status at Discharge: Cognitive status at discharge: cognitively intact , Behavioral status at discharge: cooperative and independent in ADL's , Quality Metrics Clinical Quality Measures [ No reported AMI, CVA or VTE this stay] Coding Level of Care Code 72123 Total time (in minutes) for Discharge: 35 Diagnoses ESRD on dialysis N18.6; Z99.2
--- NOTE | 2024-03-26 10:17 | PC.NURSE ---
patient up and ambulating and up to chair. Right groin dressing remains c,d,i without s/s of bleeding or hematoma formation observed. patient denies pain to site at this time.
[2024-03-26 12:10] LABS: Glucose Point of Care 244 mg/dL (70-110)
--- NOTE | 2024-03-26 14:18 | PC.NURSE ---
patient discharged to home. Instruction provided regarding follow up information and new medications. Patient verbalized complete understanding. Patient stated, I will take my aspirin and plavix after my procedure tomorrow. Just later in the day. Patient taken by wheelchair to private vehicle with spouse by side.
--- NOTE | 2024-03-26 16:15 | P.PN_ITS ---
Subjective 2 Subjective: Patient underwent left heart catheterization today. He was noted to have significant 80% proximal RCA in-stent restenosis and 80% hazy distal circumflex stent edge stenosis both were treated with balloon angioplasty with excellent angiographic result as trying to avoid the extra layer of the stent. Rest of previously placed stent including proximal LAD and PDA appear to be patent with mild in-stent restenosis. Left ventricular end-diastolic pressure was 23 mmHg. Patient doing well. Right groin site clean dry intact no evidence of hematoma. No chest pains. He states he feels good. Medications: Reviewed: Yes Vitals/I&O/Wt Last Vital Signs Temp 97.8 F 03/26/24 12:00 Pulse 74 03/26/24 14:06 Resp 20 H 03/26/24 14:06 BP 121/66 03/26/24 14:06 Pulse Ox 96 03/26/24 14:06 O2 Del Method Room Air 03/26/24 12:00 O2 Flow Rate 2 03/25/24 04:00 03/26/24 03/26/24 03/26/24 06:59 14:59 22:59 Intake Total 0 / 1412.85 1100 / 1100 Balance 0 / -2112.15 1100 / 1100 Weight last 48 hrs Weight 208 lb 8.917 oz Weight 206 lb 12.697 oz Weight 213 lb 10.047 oz Physical Exam 2 Narrative: General: No apparent distress, healthy appearing, well nourished Muskuloskeletal: Full ROM Lymphatic: no lymphedema noted Respiratory: Normal respiratory effort, clear to auscultation bilaterally throughout all lung saldaña, no use of accessory muscles Cardio: No JVD, regular rate, regular rhythm, S1 S2 normal, no murmurs, peripheral pulses 2+ throughout Extremities: Full ROM, normal, normal capillary refill, no cyanosis or edema Neuro: Alert and oriented x4, no focal motor deficits Psych: Affect normal, denies suicidal ideation, mental status grossly normal Skin: No rashes or lesions noted, no wounds, right groin puncture site clean dry intact no signs or symptoms of hematoma present Data 03/26/24 01:49 03/26/24 01:49 A&P Assessment and plan (1) Non-ST elevation (NSTEMI) myocardial infarction: Status post balloon angioplasty of the proximal RCA and distal circumflex for severe in-stent restenosis. Excellent angiographic result MEGHANA-3 flow was noted. Continue aspirin Plavix. Patient was educated that it is paramount to continue antiplatelet therapy for at least 5 days. After patient may discontinue aspirin and take his Eliquis with Plavix. He may be on triple therapy for 5 days. He will monitor for and report abnormal signs or symptoms of bleeding. (2) Essential hypertension: Well-controlled continue medicine (3) ESRD (end stage renal disease): Patient receiving dialysis (4) Contrast media allergy: Tolerated procedure well . patient was treated with Benadryl and steroids Plan Patient may be discharged from cardiology standpoint. Is absolutely necessary to continue aspirin and Plavix for the next 5 days. Then patient may go to Plavix and Eliquis monitor for and report signs or symptoms of abnormal bleeding. Discussed with patient no heavy lifting more than a gallon of milk as well as going up or down steps for 3 days. No driving for 3 days. Monitor for and report signs or symptoms of bleeding. Monitor for and report s/s of infection such as fever 101 or greater, swelling, redness or pain to the groin. Patient will see us in the clinic in 1 week. Attestations 2 Medical Necessity Statement*: Patient being discharged today. Coding Level of Care Code Acute Code for [facility] Diagnoses Non-ST elevation (NSTEMI) myocardial infarction I21.4 Essential hypertension I10 ESRD (end stage renal disease) N18.6 Contrast media allergy Z91.041
== END 2024-03-26 14:25 | disposition home or self-care (01) | DRG 250 ==
LOC: ER 07:41 → ER IP 14:49 → CSU 18:03 → ER IP 03-25 07:01
PROVIDERS: Internal Medicine; Internal Medicine Cardiovascular Disease; Internal Medicine Nephrology; Admitting Provider Internal Medicine; Emergency Provider Family Medicine; Visit Provider Internal Medicine
PROC: 02713ZZ Dilation of Coronary Artery, Two Arteries, Percutaneous Approach (ICD-10-PCS; principal; 2024-03-25 08:30)
PROC: 02713ZZ Dilation of Coronary Artery, Two Arteries, Percutaneous Approach (ICD-10-PCS; 2024-03-25 08:30)
DX: T82.855A Stenosis of coronary artery stent, initial encounter (principal); I21.4 Non-ST elevation (NSTEMI) myocardial infarction; N18.6 End stage renal disease; I13.2 Hypertensive heart and chronic kidney disease with heart failure and with stage 5 chronic kidney disease, or end stage renal disease; I50.22 Chronic systolic (congestive) heart failure; F33.2 Major depressive disorder, recurrent severe without psychotic features; Y71.8 Miscellaneous cardiovascular devices associated with adverse incidents, not elsewhere classified; E11.22 Type 2 diabetes mellitus with diabetic chronic kidney disease; Z99.2 Dependence on renal dialysis; E11.51 Type 2 diabetes mellitus with diabetic peripheral angiopathy without gangrene; E11.40 Type 2 diabetes mellitus with diabetic neuropathy, unspecified; I25.10 Atherosclerotic heart disease of native coronary artery without angina pectoris; F41.1 Generalized anxiety disorder; K21.9 Gastro-esophageal reflux disease without esophagitis; I25.5 Ischemic cardiomyopathy; F10.11 Alcohol abuse, in remission; E03.9 Hypothyroidism, unspecified; E78.5 Hyperlipidemia, unspecified; D63.1 Anemia in chronic kidney disease; M21.372 Foot drop, left foot; Z79.82 Long term (current) use of aspirin; Z79.4 Long term (current) use of insulin; Z88.2 Allergy status to sulfonamides; Z91.041 Radiographic dye allergy status; I25.2 Old myocardial infarction; Z79.01 Long term (current) use of anticoagulants; Z95.5 Presence of coronary angioplasty implant and graft; Z86.711 Personal history of pulmonary embolism; Z87.440 Personal history of urinary (tract) infections; Z86.718 Personal history of other venous thrombosis and embolism; Z90.49 Acquired absence of other specified parts of digestive tract; Z90.79 Acquired absence of other genital organ(s); Z80.8 Family history of malignant neoplasm of other organs or systems; Z82.3 Family history of stroke; Z83.2 Family history of diseases of the blood and blood-forming organs and certain disorders involving the immune mechanism; Z82.49 Family history of ischemic heart disease and other diseases of the circulatory system
CPT/HCPCS: 12345; 36415; 36416; 36591; 71045; 80053; 82962; 83735; 84100; 84484; 85025; 85347; 85730; 86705; 86706; 86803; 87340; 90935; 92920; 93005; 93458; 96365; 96366; 96367; 96372; 96374; 96375; 96376; 99152; 99153; 99285; C1725; C1769; C1887; C1894; G0378; J1171; J1200; J1644; J1815; J2250; J3010; J3490; J7050; J7512; Q3014; Q9967

== ENCOUNTER 2024-03-30 13:13 | Emergency (ER) | payer MEDICARE, SELFPAY ==
[2024-03-20 13:31] VITALS: BP 125/53; BMI 35.0
[2024-03-30] VITALS (7 sets, daily range): BP systolic 106–128; BP diastolic 26–71; PULSE 78–83; RESP 16–20; TEMP 36.3; O2SAT 94–98; BMI 35.5
--- NOTE | 2024-03-30 13:20 | ECG_ITS ---
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 Measurements Intervals [place] Rate: 84 P: 52 WV: 192 QRS: 98 QRSD: 112 T: 26 QT: 402 QTc: 477 Interpretive Statements SINUS RHYTHM BORDERLINE RIGHT AXIS DEVIATION [QRS AXIS > 90] ANTERIOR MYOCARDIAL INFARCTION , PROBABLY OLD [40+ ms Q WAVE AND/OR ST/T ABNORMALITY IN V3/V4] Compared to ECG 03/24/2024 13:24:02 No significant changes Electronically Signed On 04-02-2024 21:41:45 DIRECTOR INDUSTRIAL by Karen Choi M.D. [email or web address]
--- NOTE | 2024-03-30 13:20 | XRR_ITS ---
PROCEDURE INFORMATION: Exam: XR Chest Exam date and time: 03/30/2024 3:45 PM Age: 53 years old Clinical indication: Pain; Angina pectoris; Additional info: Cp TECHNIQUE: Imaging protocol: Radiologic exam of the chest. Views: 1 view. COMPARISON: CR XR chest 1V portable [id number] 03/24/2024 7:31 AM FINDINGS: Tubes, catheters and devices: There is a left chest port with the line tip appropriately positioned in the lower SVC near the cavoatrial junction. Lungs: Mildly increased coarse reticular and focal opacity in the left lung base since 03/24/2024. Right lung is clear. Pleural spaces: There is no pleural effusion or pneumothorax. Heart/Mediastinum: Cardiomediastinal contours are unremarkable. Bones/joints: Sternal wires are present. There is no displacement to suggest sternal dehiscence. No acute osseous findings. XR/XR chest 1V portable [id number] IMPRESSION: Increased opacity in the left lung base since 03/24/2024. Possible atelectasis, infection or aspiration. Some component of chronic scarring present.
[2024-03-30 14:07] LABS: Basophils % 0.4 %; Eosinophils # 0.3 10^3/uL (0.0-0.8); Eosinophils % 2.4 %; Hematocrit 31.5 % (37-53); Lymphocytes # 1.2 10^3/uL (0.8-4.8); Lymphocytes % 11.6 %; Mean Corpuscular HGB Conc 33.3 g/dL (30-55); Mean Corpuscular Hemoglobin 33.1 pg (27-33); Mean Corpuscular Volume 99.4 fl (82-101); Mean Platelet Volume 10.1 fL (7.4-10.4); Monocytes # 0.8 10^3/uL (0.2-0.9); Monocytes % 7.9 %; Neutrophils # 7.92 10^3/uL (1.8-7.7); Neutrophils % 76.9 %; Nucleated Red Blood Cells % 0 %; Platelet Count 205 10^3/cmm (157-399); Red Blood Count 3.17 10^6/uL (3.85-5.65); Red Cell Distribution Width 13.3 % (12.1-15.1); White Blood Count 10.29 10^3/uL (3.29-11.43)
[2024-03-30 14:21] LABS: INR 0.94 (0.8-1.2)
[2024-03-30 14:29] LABS: Troponin(5th) Baseline 102 ng/L (0-15)
[2024-03-30 14:32] LABS: Alanine Aminotransferase 12 U/L (0-41); Albumin Level 3.4 g/dL (3.5-5.2); Alkaline Phosphatase 83 U/L (40-130); Anion Gap 16.7 (5-19); Aspartate Amino Transferase 13 U/L (0-40); Blood Urea Nitrogen 41 mg/dL (6-20); Carbon Dioxide 27 mmol/L (22-29); Chloride 94 mmol/L (98-107); Creatinine Clr Calc Pharmacy 16.9893; Globulin 2.4 g/dL (1.3-4.6); Glomerular Filtration Rate 11.3 mL/min (90-130); Glucose 142 mg/dL (65-115); Osmolality Calculated 291 mOsm/kg (285-295); Potassium 3.7 mmol/L (3.5-5.1); Sodium 134 mmol/L (136-145); Total Bilirubin 0.8 mg/dL (0.15-1.2); Total Protein 5.8 g/dL (6.6-8.7)
--- NOTE | 2024-03-30 15:20 | ECG_ITS ---
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 Measurements Intervals [place] Rate: 84 P: 29 HI: 172 QRS: 78 QRSD: 109 T: 37 QT: 424 QTc: 503 Interpretive Statements SINUS RHYTHM ANTERIOR MYOCARDIAL INFARCTION , PROBABLY OLD [40+ ms Q WAVE AND/OR ST/T ABNORMALITY IN V3/V4] Compared to ECG 03/30/2024 13:25:01 No significant changes Electronically Signed On 04-06-2024 19:41:15 LINER WORKER by Karen Choi M.D. [email or web address]
--- NOTE | 2024-03-30 15:31 | PC.PHAR ---
patient was just seen a couple days ago, confirmed that all meds were the same with the addition of the one that was just given as a new rx last week
--- NOTE | 2024-03-30 15:32 | ED_ITS ---
HPI - Chest Pain 2 General: Chief Complaint: Chest Pain Stated Complaint: Chest Pains Time Seen by Provider: 03/30/24 15:02 Source: patient Mode of arrival: ambulatory Limitations: no limitations History of Present Illness: 53-year-old male history of end-stage re nal disease along with coronary disease patient been admitted last week did have a cardiac cath states that since the weekend he has been having some dizziness along with ongoing chest pain for the last 2 to 3 days states been constant nature rates it a 5 out of 10 currently sharp pain in the center of his chest she denies any increased dyspnea denies any vomiting or diarrhea denies headache Associated symptoms: Deny abdominal pain, dyspnea, fever(s), nausea or vomiting Related Data Home Medications Medication Instructions Recorded Confirmed levothyroxine 88 mcg tablet 88 mcg PO QAM 02/09/21 03/30/24 bumetanide 2 mg tablet 2 mg PO BID 08/16/22 03/30/24 blood-glucose meter,continuous 02/27/23 03/30/24 (Dexcom G7 Career Services Manager) diphenhydramine HCl 25 mg tablet 50 mg PO DAILY PRN Allergy Symptoms 05/02/23 03/30/24 (Benadryl Allergy) insulin lispro 100 unit/mL See Rx Instructions .Route .COMPLEX 05/02/23 03/30/24 subcutaneous pen (Humalog KwikPen (U-100) Insulin) gabapentin 100 mg capsule 100 mg PO BID 07/07/23 03/30/24 hydrocortisone 2.5 % topical cream See Rx Instructions .Route .COMPLEX 10/01/23 03/30/24 with perineal applicator (Procto-Med HC) lorazepam 1 mg tablet 1 mg PO Q8H PRN SEVER NAUSEA 10/24/23 03/30/24 ranolazine 500 mg tablet,extended 500 mg PO BID 10/24/23 03/30/24 release,12 hr vit B,C-folic ac 800 mcg-zinc 12.5 1 tab PO DAILY 10/29/23 03/30/24 mg-selen-D3 2,000 unit-vit E tablet (RenaPlex-D) nifedipine 30 mg tablet,extended 30 mg PO DAILY 03/18/24 03/30/24 release promethazine 25 mg tablet 25 mg PO Q6H 03/24/24 03/30/24 tamsulosin 0.4 mg capsule 0.4 mg PO DAILY 03/24/24 03/30/24 tizanidine 2 mg tablet 2 mg PO BID 03/24/24 03/30/24 Previous Rx's Medication Instructions Recorded atorvastatin 40 mg tablet 40 mg PO QAM #90 tabs 10/25/22 AFO to left #1 ea 07/25/23 Diabetic Shoes with Custom insoles #1 ea 07/25/23 nitroglycerin 0.4 mg sublingual 0.4 mg sublingual Q5M PRN Chest 08/27/23 tablet (Nitrostat) Pain #25 tabs isosorbide mononitrate 30 mg See Rx Instructions .Route 10/03/23 tablet,extended release 24 hr .COMPLEX #30 tabs apixaban 2.5 mg tablet (Eliquis) 2.5 mg PO BID #60 tabs 10/30/23 aspirin 81 mg tablet,delayed 81 mg PO DAILY #90 tabs 10/30/23 release carvedilol 6.25 mg tablet 6.25 mg PO BID #90 tabs 10/30/23 clopidogrel 75 mg tablet 75 mg PO DAILY #90 tabs 10/30/23 blood-glucose sensor (Dexcom G7 #9 ea 11/25/23 Sensor device) insulin degludec 200 unit/mL (3 See Rx Instructions .Route 12/04/23 mL) subcutaneous pen (Tresiba .COMPLEX #9 mL FlexTouch U-200 insulin) tirzepatide 15 mg/0.5 mL See Rx Instructions .Route 12/30/23 subcutaneous pen injector .COMPLEX #2 mL (Mounjaro) bupropion HCl 300 mg 24 hr tablet, 300 mg PO QAM #30 tabs 01/22/24 extended release buspirone 10 mg tablet 10 mg PO BID #60 tabs 01/22/24 fluoxetine 40 mg capsule 40 mg PO QAM #30 caps 01/22/24 pantoprazole 40 mg tablet,delayed 40 mg PO DAILY #30 tabs 03/26/24 release Allergies Allergy/AdvReac Type Severity Reaction Status Date / Time Iodinated Contrast Media Allergy Severe ALGY-Difficulty Verified 03/18/24 08:34 Breathing iodine Allergy Severe ALGY-Difficulty Verified 03/18/24 08:34 Breathing metoclopramide [From Reglan] Allergy Severe ALGY-Difficulty Verified 03/18/24 08:34 Breathing nalbuphine [From Nubain] Allergy Severe ADR-Diarrhe Verified 03/18/24 08:34 a naproxen [From Naprosyn] Allergy Severe ADR-Vomitin Verified 03/18/24 08:34 g Sulfa (Sulfonamide Allergy Severe ALGY-Difficulty Verified 03/18/24 08:34 Antibiotics) Breathing ketorolac Allergy Intermediate ADR-Nausea Verified 03/18/24 08:34 ondansetron [From Zofran] Allergy Intermediate ADR-Abdominal Verified 03/18/24 08:34 Pain prochlorperazine Allergy Intermediate ADR-Irritab Verified 03/18/24 08:34 [From Compazine] le codeine AdvReac Severe ALGY-Anaphy Verified 03/18/24 08:34 laxis haloperidol [From Haldol] AdvReac Intermediate ADR-Irritab Verified 03/18/24 08:34 le Review of Systems 2 Const: Denies: fever(s), chills, body aches or change in appetite ENMT: Denies: throat pain or dental pain Card: Reports: chest pain Resp: Denies: dyspnea GI: Denies: abdominal pain, nausea, vomiting or diarrhea Musc: Denies: neck pain or back pain Skin/Breast: Denies: rash Neuro: Denies: headache(s) PFSH ED 2 PFSH: Medical History Essential hypertension Essential hypertension ESRD (end stage renal disease) Hypertension Psychiatric care 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 mellitus Chronic renal failure Chest pain Chest pain CRF (chronic renal failure) Chronic right SI joint pain Chronic systolic heart failure UTI (urinary tract infection) Peripheral arterial disease PVD (peripheral vascular disease) Worsening angina Elevated troponin Angina at rest Chest pain ESRD (end stage renal disease) Uremic encephalopathy Generalized anxiety disorder ESRD (end stage renal disease) D-dimer, elevated Acute on chronic congestive heart failure History of pulmonary embolism Diabetes Acute kidney injury superimposed on CKD GERD (gastroesophageal reflux disease) Alcohol use disorder, moderate, in sustained remission Major depressive disorder, recurrent severe without psychotic features DVT (deep venous thrombosis) (~03/2020) Proximal left subclavian, basilic and brachial veins, started eliquis this stay, felt present prior to admission Chronic kidney disease -baseline Cr appears to be around 1.5 Atherosclerotic heart disease of [place] coronary artery with other forms of angina pectoris hx of CAD with prior stenting of proximal LAD, LCx, RCA Ischemic cardiomyopathy Onychodystrophy Chronic anticoagulation Eliquis Osteoarthritis of spine Hypothyroidism Hypertension Hyperlipidemia Diabetes Depression Anemia Foot drop, left H/O acute myocardial infarction H/O deep venous thrombosis developed compartment syndrome Surgical History Peritoneal dialysis catheter in situ (06/15/21) History of appendectomy 1995 History of excision of mass 06/08/2019: Subcutaneous mass on back History of removal of Port-a-Cath Port-A-Cath in place H/O vasectomy Hx of cholecystectomy History of coronary artery stent placement 5x H/O skin graft History of inguinal hernia repair, bilateral 2000 H/O removal of testicle left H/O colonoscopy (11/14/20) 08/2015 H/O esophagogastroduodenoscopy (11/14/20) 08/2015 Family History Grandfather Cancer skin cancer Parkinson disease Brother Hypertension Father Heart disease Mother Hypertension Stroke Aneurysm Grandmother Aneurysm Other Crohn's disease Denies family history of Anesthesia complication Bleeding disorder Social History Smoking and tobacco/nicotine status: never used tobacco/nicotine Second hand smoke exposure: No Alcohol intake: former Year of sobriety/quit date alcohol: 2016 Former alcohol use details: Only holidays - last use 05.19.2015 Substance/Drug Use: never Adopted: No Caregiver/support person: No Lives independently: Yes Household members: spouse Housing: Apartment Marital status: Number of children: 2 Number of grandchildren: 0 Highest education level completed: High School Graduate service: No Current occupational status: disabled Pets and animals: Yes Pets & animals: dog(s) Leisure activites: games and other Leisure activities details: watching TV Sexually active: Yes Do you think of yourself as: Straight/Heterosexual Current gender identity: Male Shannon/Faith: Orthodoxy Special shannon needs: No Agree to transfusion: Yes Physical Exam 2 Const: COMMON NORMALS: patient oriented x3 HENMT: COMMON NORMALS: normocephalic and atraumatic HEAD & SCALP: n ormocephalic and atraumatic Eye: COMMON NORMALS: conjunctivae normal CONJUNCTIVA: Yes conjunctivae normal Neck/C-Spine: COMMON NORMALS: full ROM and supple Chest: COMMONS NORMALS: normal inspection of the chest and normal palpation of entire chest wall Resp: COMMON NORMALS: normal respiratory effort, No retractions, No use of accessory muscles and clear to auscultation bilaterally AUSCULTATION: clear to auscultation bilaterally Cardio: COMMON NORMALS: regular rate, regular rhythm and No murmurs present (Cardio) RATE: regular rate RHYTHM: regular rhythm Extremity: COMMON NORMALS: normal to inspection and full ROM Neuro: COMMON NORMALS: patient oriented x3, moves all extremities and no focal motor deficits Psych: COMMON NORMALS: mental status grossly normal, Normal thought process present and cooperative THOUGHT PROCESS: Normal thought process present Skin: COMMON NORMALS: no rashes or lesions noted and no wounds GENERAL SKIN EXAM: no rashes or lesions noted Course 2 Vital Signs: Vital signs: Vital Signs Temperature 97.3 F L 03/30/24 13:31 Pulse Rate 83 03/30/24 13:31 Respiratory Rate 18 03/30/24 13:31 Blood Pressure 128/71 03/30/24 13:31 Pulse Oximetry 98 03/30/24 13:31 Oxygen Delivery Me thod Room Air 03/30/24 13:31 MDM - Chest Pain Medical Decision Making Patient presents with chest pain since resolved 2-hour Trope was less than 10 I did speak to striping machine operator Dr. Benavides on will discharge at this time follow-up with cardiology return if worsening. Medical Records I reviewed the patient's medical records. Lab Data I reviewed the patient's lab results. 03/30/24 13:51 03/30/24 13:51 Radiology Impressions Chest X-Ray 03/30/24 13:20 IMPRESSION: Increased opacity in the left lung base since 03/24/2024. Possible atelectasis, infection or aspiration. Some component of chronic scarring present. Laboratory Results WBC 10.29 10^3/uL (3.29-11.43) 03/30/24 13:51 RBC 3.17 10^6/uL (3.85-5.65) L 03/30/24 13:51 Hgb 10.50 g/dL (11.27-16.99) L 03/30/24 13:51 Hct 31.5 % (37-53) L 03/30/24 13:51 MCV 99.4 fl (82-101) 03/30/24 13:51 MCH 33.1 pg (27-33) H 03/30/24 13:51 MCHC 33.3 g/dL (30-55) 03/30/24 13:51 RDW 13.3 % (12.1-15.1) 03/30/24 13:51 Plt Count 205 10^3/cmm (157-399) 03/30/24 13:51 MPV 10.1 fL (7.4-10.4) 03/30/24 13:51 Neut % (Auto) 76.9 % 03/30/24 13:51 Lymph % (Auto) 11.6 % 03/30/24 13:51 [place] % (Auto) 7.9 % 03/30/24 13:51 Eos % (Auto) 2.4 % 03/30/24 13:51 Baso % (Auto) 0.4 % 03/30/24 13:51 Neut # (Auto) 7.92 10^3/uL (1.8-7.7) H 03/30/24 13:51 Lymph # (Auto) 1.2 10^3/uL (0.8-4.8) 03/30/24 13:51 [place] # (Auto) 0.8 10^3/uL (0.2-0.9) 03/30/24 13:51 Eos # (Auto) 0.3 10^3/uL (0.0-0.8) 03/30/24 13:51 Baso # (Auto) 0.0 10^3/uL (0.0-0.1) 03/30/24 13:51 Nucleated RBC % (auto) 0 % 03/30/24 13:51 Nucleated RBCs # 0.0 /100WBC 03/30/24 13:51 PT 12.80 SECONDS (12.1-14.9) 03/30/24 13:51 INR 0.94 (0.8-1.2) 03/30/24 13:51 Sodium 134 mmol/L (136-145) L 03/30/24 13:51 Potassium 3.7 mmol/L (3.5-5.1) 03/30/24 13:51 Chloride 94 mmol/L (98-107) L 03/30/24 13:51 Carbon Dioxide 27 mmol/L (22-29) 03/30/24 13:51 Anion Gap 16.7 (5-19) 03/30/24 13:51 BUN 41 mg/dL (6-20) H 03/30/24 13:51 Creatinine 5.3 mg/dL (0.7-1.2) H 03/30/24 13:51 GFR Calculation 11.3 mL/min (90-130) L 03/30/24 13:51 Glucose 142 mg/dL (65-115) H 03/30/24 13:51 Calculated Osmolality 291 mOsm/kg (285-295) 03/30/24 13:51 Calcium 8.0 mg/dL (8.5-10.5) L 03/30/24 13:51 Total Bilirubin 0.8 mg/dL (0.15-1.2) 03/30/24 13:51 AST 13 U/L (0-40) 03/30/24 13:51 ALT 12 U/L (0-41) 03/30/24 13:51 Alkaline Phosphatase 83 U/L (40-130) 03/30/24 13:51 Troponin T Baseline 102 ng/L (0-15) H* 03/30/24 13:51 Troponin T 120 Minute 108.1 ng/L (0-15) H 03/30/24 17:18 Delta Troponin T 6.1 ABS# (0-10) 03/30/24 17:18 Total Protein 5.8 g/dL (6.6-8.7) L 03/30/24 13:51 Albumin 3.4 g/dL (3.5-5.2) L 03/30/24 13:51 Globulin 2.4 g/dL (1.3-4.6) 03/30/24 13:51 All radiology interpretation(s) finalized by discharge Discharge Plan Discharge Patient Disposition: Home Clinical Impression: Chest pain Qualifiers: Chest pain type: unspecified Qualified Code(s): R07.9 - Chest pain, unspecified Condition: Stable Prescriptions: No Action (DME) Diabetic Shoes with Custom insoles See Rx Instructions .Route .MEDSUBANNER Qty: 1 0RF Rx Instructions: As directed (DME) AFO to left See Rx Instructions .Route .MEDSUPPLY Qty: 1 0RF Rx Instructions: As directed by [facility] bupropion HCl 300 mg tablet extended release 24 hr 300 mg PO QAM Qty: 30 2RF buspirone 10 mg tablet 10 mg PO BID Qty: 60 2RF fluoxetine 40 mg capsule 40 mg PO QAM Qty: 30 2RF nifedipine 30 mg tablet extended release 30 mg PO DAILY atorvastatin 40 mg tablet 40 mg PO QAM Qty: 90 2RF nitroglycerin [Nitrostat] 0.4 mg tablet, sublingual 0.4 mg SUBLINGUAL Q5M PRN (Reason: Chest Pain) Qty: 25 2RF Rx Instructions: do not exceed 3 doses per episode (DME) Dexcom G7 Sensor Device See Rx Instructions .ROUTE .COMPLEX Qty: 9 1RF Dose Instruction: CHANGE every 10 DAYS Rx Instructions: CHANGE every 10 DAYS Tresiba FlexTouch U-200 200 unit/mL (3 mL) insulin pen See Rx Instructions .ROUTE .COMPLEX Qty: 9 2RF Dose Instruction: INJECT 40 UNITS SUBCUTANEOUSLY AT BEDTIME Rx Instructions: INJECT 40 UNITS SUBCUTANEOUSLY AT BEDTIME Mounjaro 15 mg/0.5 mL pen injector See Rx Instructions .ROUTE .COMPLEX Qty: 2 2RF Dose Instruction: inject 15mg (0.5ml) SUBCUTANEOUSLY EVERY 7 DAYS Rx Instructions: inject 15mg (0.5ml) SUBCUTANEOUSLY EVERY 7 DAYS levothyroxine 88 mcg tablet 88 mcg PO QAM gabapentin 100 mg capsule 100 mg PO BID hydrocortisone [Procto-Med HC] 2.5 % cream with perineal applicator See Rx Instructions .ROUTE .COMPLEX Rx Instructions: APPLY THIN LAYER TO AFFECTED AREA TWO TO FOUR TIMES A DAY. isosorbide mononitrate 30 mg tablet extended release 24 hr See Rx Instructions .ROUTE .COMPLEX Qty: 30 1RF Rx Instructions: Take 30 mg daily, do not take on dialysis days lorazepam 1 mg Tablet 1 mg PO Q8H PRN (Reason: SEVER NAUSEA) ranolazine 500 mg tablet extended release 12 hr 500 mg PO BID tizanidine 2 mg tablet 2 mg PO BID tamsulosin 0.4 mg capsule 0.4 mg PO DAILY promethazine 25 mg tablet 25 mg PO Q6H pantoprazole 40 mg Tablet,Delayed Release (Dr/Ec) 40 mg PO DAILY Qty: 30 0RF bumetanide 2 mg tablet 2 mg PO BID (DME) Dexcom G7 Career Services Manager Misc MISCELLANEOUS diphenhydramine HCl [Benadryl Allergy] 25 mg Tablet 50 mg PO DAILY PRN (Reason: Allergy Symptoms) insulin lispro [Humalog KwikPen Insulin] 100 unit/mL insulin pen See Rx Instructions .ROUTE .COMPLEX Rx Instructions: Sliding scale subcutaneously twice a day as needed. RenaPlex-D 800 mcg-12.5 mg -2,000 unit tablet 1 tab PO DAILY aspirin 81 mg Tablet,Delayed Release (Dr/Ec) 81 mg PO DAILY Qty: 90 3RF Eliquis 2.5 mg tablet 2.5 mg PO BID Qty: 60 2RF carvedilol 6.25 mg tablet 6.25 mg PO BID Qty: 90 0RF clopidogrel 75 mg tablet 75 mg PO DAILY Qty: 90 4RF Discharge Orders: Discharge ED (Routine); Ordered 03/30/24 Ordered By: Moses Gauthier Referrals: Rosi Vee MD [Physician] - 4-7 days Kp Montanez DO [Primary Care Provider] - Discharge Diet: Advance as tolerated Discharge Activity: Resume usual activity Patient Instructions: Chest Pain (ED) Coding Level of Care Code ED Painting Manager for Aaron Irene
[2024-03-30] MEDS: meclizine 25 mg tablet PO (16:37)
[2024-03-30] MEDS: morphine 4 mg/mL SDV 1 mL IVP (16:38)
--- NOTE | 2024-03-30 16:51 | PC.NURSE ---
contacted lab at 1651 to have them come draw patients 2 hour troponin. trop was due a 1558, and has not been drawn at 1652.
[2024-03-30 18:08] LABS: Troponin 5 2HR Delta 6.1 ABS# (0-10)
[2024-03-30 18:09] LABS: Troponin 5 2HR 108.1 ng/L (0-15)
== END 2024-03-30 18:43 | disposition home or self-care (01) ==
PROVIDERS: Emergency Provider Emergency Medicine; PCP Internal Medicine
DX: R07.9 Chest pain, unspecified (principal); Z79.82 Long term (current) use of aspirin; Z79.01 Long term (current) use of anticoagulants; Z79.02 Long term (current) use of antithrombotics/antiplatelets; I25.2 Old myocardial infarction; Z86.711 Personal history of pulmonary embolism; E11.22 Type 2 diabetes mellitus with diabetic chronic kidney disease; I13.2 Hypertensive heart and chronic kidney disease with heart failure and with stage 5 chronic kidney disease, or end stage renal disease; I50.22 Chronic systolic (congestive) heart failure; N18.6 End stage renal disease; E78.5 Hyperlipidemia, unspecified; I25.118 Atherosclerotic heart disease of native coronary artery with other forms of angina pectoris
CPT/HCPCS: 36415; 71045; 80053; 84484; 85025; 85610; 93005; 96374; 96375; 99285; J2270; J8597

== ENCOUNTER 2024-03-31 07:06 | Inpatient (IN) | payer MEDICARE, SELFPAY ==
[2024-03-20 13:31] VITALS: BP 125/53; BMI 35.0
[2024-03-31] VITALS (21 sets, daily range): BP systolic 91–133; BP diastolic 42–80; PULSE 67–85; RESP 12–22; TEMP 36.5–36.8; O2SAT 95–97; BMI 36.1
--- NOTE | 2024-03-31 07:09 | XRR_ITS ---
PROCEDURE INFORMATION: Exam: XR Chest Exam date and time: 03/31/2024 7:43 AM Age: 53 years old Clinical indication: Cough and dyspnea; Additional info: Dyspnea/cough TECHNIQUE: Imaging protocol: Radiologic exam of the chest. Views: 1 view. COMPARISON: CR XR chest 1V portable [id number] 03/30/2024 3:45 PM FINDINGS: Tubes, catheters and devices: Left chest port catheter is demonstrated. Catheter tip overlies the SVC region. Lungs: Mild bilateral perihilar and basilar interstitial lung opacities, suggesting pulmonary edema versus infiltrates. The peripheral lungs are otherwise clear. No consolidation. Linear density identified within bilateral lower lungs. The bilateral upper lungs appear clear. Pleural spaces: No pleural effusion. No pneumothorax. Heart/Mediastinum: Coronary arterial stents identified. The cardiac silhouette appears borderline prominent. Bones/joints: Sternotomy wires, hardware is demonstrated. Generalized bony degenerative changes. XR/XR chest 1V portable [id number] IMPRESSION: 1. Borderline prominence of the cardiac silhouette. 2. Mild interstitial pulmonary edema versus infiltrates. 3. Linear bilateral lower chest pulmonary atelectasis, or scarring. 4. Degenerative and postsurgical changes are demonstrated, as described above.
--- NOTE | 2024-03-31 07:10 | ECG_ITS ---
[facility] 2024[facility]31 Pat Name: Rei Queen Department: Room: 103 Gender: Male [employer] [place]: : 1970 Requested By: Timo Hart Order Number: [id number] Becky MD: Karen Choi M.D. 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 [email or web address]
--- NOTE | 2024-03-31 07:14 | PC.NURSE ---
ASA GIVEN IN ROUTE BY EMS, DID NOT ADMINISTER.
--- NOTE | 2024-03-31 07:21 | W.ED.CHESTPA ---
HPI - Chest Pain General: Chief Complaint: Chest Pain Stated Complaint: Chest pain Time Seen by Provider: 03/31/24 07:07 History of Present Illness: 53-year-old male presents emergency room with complaint of chest pain chest pain began while he was at rest. He reports it was a 8-10 out of 10 he took a nitro and improved but is now worsening again. Patient has a known history of coronary artery disease as well as end-stage renal disease he is due for dialysis today does not appear to be fluid overloaded. He is still complaining of chest discomfort. And states it is worsening. He has a known history of coronary disease he was actually just in the last week and stopped his anticoagulation and his antiplatelet therapy and had more chest pain he was taken to the [facility] and had in-stent stenosis which was treated. He is still not regularly taking his all of his medications he has resumed them but is taking them rather intermittently had not taken them this morning because he had dialysis today. Associated symptoms: Deny abdominal pain, dyspnea or fever(s) Related Data Home Medications Medication Instructions Recorded Confirmed levothyroxine 88 mcg tablet 88 mcg PO QAM 02/09/21 03/31/24 bumetanide 2 mg tablet 2 mg PO BID 08/16/22 03/31/24 blood-glucose meter,continuous 02/27/23 03/31/24 (Dexcom G7 Pheresis Specialist) diphenhydramine HCl 25 mg tablet 50 mg PO DAILY PRN Allergy Symptoms 05/02/23 03/31/24 (Benadryl Allergy) insulin lispro 100 unit/mL See Rx Instructions .Route .COMPLEX 05/02/23 03/31/24 subcutaneous pen (Humalog KwikPen (U-100) Insulin) gabapentin 100 mg capsule 100 mg PO BID 07/07/23 03/31/24 hydrocortisone 2.5 % topical cream See Rx Instructions .Route .COMPLEX 10/01/23 03/31/24 with perineal applicator (Procto-Med HC) lorazepam 1 mg tablet 1 mg PO Q8H PRN SEVER NAUSEA 10/24/23 03/31/24 ranolazine 500 mg tablet,extended 500 mg PO BID 10/24/23 03/31/24 release,12 hr vit B,C-folic ac 800 mcg-zinc 12.5 1 tab PO DAILY 10/29/23 03/31/24 mg-selen-D3 2,000 unit-vit E tablet (RenaPlex-D) nifedipine 30 mg tablet,extended 30 mg PO DAILY 03/18/24 03/31/24 release promethazine 25 mg tablet 25 mg PO Q6H 03/24/24 03/31/24 tamsulosin 0.4 mg capsule 0.4 mg PO DAILY 03/24/24 03/31/24 tizanidine 2 mg tablet 2 mg PO BID 03/24/24 03/31/24 Previous Rx's Medication Instructions Recorded atorvastatin 40 mg tablet 40 mg PO QAM #90 tabs 10/25/22 AFO to left #1 ea 07/25/23 Diabetic Shoes with Custom insoles #1 ea 07/25/23 nitroglycerin 0.4 mg sublingual 0.4 mg sublingual Q5M PRN Chest 08/27/23 tablet (Nitrostat) Pain #25 tabs isosorbide mononitrate 30 mg See Rx Instructions .Route 10/03/23 tablet,extended release 24 hr .COMPLEX #30 tabs apixaban 2.5 mg tablet (Eliquis) 2.5 mg PO BID #60 tabs 10/30/23 aspirin 81 mg tablet,delayed 81 mg PO DAILY #90 tabs 10/30/23 release carvedilol 6.25 mg tablet 6.25 mg PO BID #90 tabs 10/30/23 clopidogrel 75 mg tablet 75 mg PO DAILY #90 tabs 10/30/23 blood-glucose sensor (Dexcom G7 #9 ea 11/25/23 Sensor device) insulin degludec 200 unit/mL (3 See Rx Instructions .Route 12/04/23 mL) subcutaneous pen (Tresiba .COMPLEX #9 mL FlexTouch U-200 insulin) tirzepatide 15 mg/0.5 mL See Rx Instructions .Route 12/30/23 subcutaneous pen injector .COMPLEX #2 mL (Mounjaro) bupropion HCl 300 mg 24 hr tablet, 300 mg PO QAM #30 tabs 01/22/24 extended release buspirone 10 mg tablet 10 mg PO BID #60 tabs 01/22/24 fluoxetine 40 mg capsule 40 mg PO QAM #30 caps 01/22/24 pantoprazole 40 mg tablet,delayed 40 mg PO DAILY #30 tabs 03/26/24 release Allergies Allergy/AdvReac Type Severity Reaction Status Date / Time Iodinated Contrast Media Allergy Severe ALGY-Difficulty Verified 03/18/24 08:34 Breathing iodine Allergy Severe ALGY-Difficulty Verified 03/18/24 08:34 Breathing metoclopramide [From Reglan] Allergy Severe ALGY-Difficulty Verified 03/18/24 08:34 Breathing nalbuphine [From Nubain] Allergy Severe ADR-Diarrhe Verified 03/18/24 08:34 a naproxen [From Naprosyn] Allergy Severe ADR-Vomitin Verified 03/18/24 08:34 g Sulfa (Sulfonamide Allergy Severe ALGY-Difficulty Verified 03/18/24 08:34 Antibiotics) Breathing ketorolac Allergy Intermediate ADR-Nausea Verified 03/18/24 08:34 ondansetron [From Zofran] Allergy Intermediate ADR-Abdominal Verified 03/18/24 08:34 Pain prochlorperazine Allergy Intermediate ADR-Irritab Verified 03/18/24 08:34 [From Compazine] le codeine AdvReac Severe ALGY-Anaphy Verified 03/18/24 08:34 laxis haloperidol [From Haldol] AdvReac Intermediate ADR-Irritab Verified 03/18/24 08:34 le Review of Systems Const: Denies: fever(s) or chills Card: Reports: chest pain Resp: Denies: dyspnea GI: Denies: abdominal pain : Denies: dysuria, urinary frequency or urinary urgency Musc: Denies: neck pain or back pain Skin/Breast: Denies: rash PFSH ED PFSH: Medical History (Updated 03/31/24 @ 14:02 by Timo Mckoy DO) Elevated troponin Essential hypertension Essential hypertension ESRD (end stage renal disease) Hypertension Psychiatric care 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 mellitus Chronic renal failure Chest pain Chest pain CRF (chronic renal failure) Chronic right SI joint pain Chronic systolic heart failure UTI (urinary tract infection) Peripheral arterial disease PVD (peripheral vascular disease) Worsening angina Angina at rest Chest pain ESRD (end stage renal disease) Uremic encephalopathy Generalized anxiety disorder ESRD (end stage renal disease) D-dimer, elevated Acute on chronic congestive heart failure History of pulmonary embolism Diabetes Acute kidney injury superimposed on CKD GERD (gastroesophageal reflux disease) Alcohol use disorder, moderate, in sustained remission Major depressive disorder, recurrent severe without psychotic features DVT (deep venous thrombosis) (~03/2020) Proximal left subclavian, basilic and brachial veins, started eliquis this stay, felt present prior to admission Chronic kidney disease -baseline Cr appears to be around 1.5 Atherosclerotic heart disease of [place] coronary artery with other forms of angina pectoris hx of CAD with prior stenting of proximal LAD, LCx, RCA Ischemic cardiomyopathy Onychodystrophy Chronic anticoagulation Eliquis Osteoarthritis of spine Hypothyroidism Hypertension Hyperlipidemia Diabetes Depression Anemia Foot drop, left H/O acute myocardial infarction H/O deep venous thrombosis developed compartment syndrome Surgical History Peritoneal dialysis catheter in situ (06/15/21) History of appendectomy 1995 History of excision of mass 06/08/2019: Subcutaneous mass on back History of removal of Port-a-Cath Port-A-Cath in place H/O vasectomy Hx of cholecystectomy History of coronary artery stent placement 5x H/O skin graft History of inguinal hernia repair, bilateral 2000 H/O removal of testicle left H/O colonoscopy (11/14/20) 08/2015 H/O esophagogastroduodenoscopy (11/14/20) 08/2015 Family History Grandfather Cancer skin cancer Parkinson disease Brother Hypertension Father Heart disease Mother Hypertension Stroke Aneurysm Grandmother Aneurysm Other Crohn's disease Denies family history of Anesthesia complication Bleeding disorder Social History Smoking and tobacco/nicotine status: never used tobacco/nicotine Second hand smoke exposure: No Alcohol intake: former Year of sobriety/quit date alcohol: 2016 Former alcohol use details: Only holidays - last use 05.19.2015 Substance/Drug Use: never Adopted: No Caregiver/support person: No Lives independently: Yes Household members: spouse Housing: Apartment Marital status: Number of children: 2 Number of grandchildren: 0 Highest education level completed: High School Graduate service: No Current occupational status: disabled Pets and animals: Yes Pets & animals: dog(s) Leisure activites: games and other Leisure activities details: watching TV Sexually active: Yes Do you think of yourself as: Straight/Heterosexual Current gender identity: Male Shannon/Catholic: Mormonism Special shannon needs: No Agree to transfusion: Yes Physical Exam Const: GENERAL APPEARANCE: cooperative ORIENTATION/CONSCIOUSNESS: Yes awake, Yes oriented to person, Yes oriented to place and Yes oriented to time HENMT: COMMON NORMALS: normocephalic, atraumatic and hearing grossly normal bilaterally HEAD & SCALP: normocephalic and atraumatic Resp: COMMON NORMALS: normal respiratory effort, No retractions, No use of accessory muscles and clear to auscultation bilaterally AUSCULTATION: clear to auscultation bilaterally Cardio: COMMON NORMALS: regular rate, regular rhythm and No murmurs present (Cardio) RATE: regular rate RHYTHM: regular rhythm GI: COMMON NORMALS: Soft to palpation and No hepatosplenomegaly present AUSCULTATION: Yes normoactive bowel sounds PALPATION: Yes Soft to palpation, No Tenderness to palpation present (GI), No Guarding due to palpation present (GI) and Yes No hepatosplenomegaly present Extremity: COMMON NORMALS: normal to inspection, capillary refill normal, no clubbing, cyanosis or edema, no calf tenderness and no pedal edema Neuro: SENSORIUM/ORIENTATION: Yes oriented to person, Yes oriented to place and Yes oriented to time Skin: COMMON NORMALS: no rashes or lesions noted GENERAL SKIN EXAM: no rashes or lesions noted Course Vital Signs: Vital signs: Vital Signs Temperature 97.7 F 03/31/24 11:33 Pulse Rate 75 03/31/24 11:33 Respiratory Rate 16 03/31/24 11:33 Blood Pressure 123/56 03/31/24 11:33 Pulse Oximetry 97 03/31/24 10:46 Oxygen Delivery Me thod Room Air 03/31/24 11:30 MDM - Chest Pain Medical Decision Making Troponin 802 on the first test no acute EKG changes we did initiate IV nitro and it improved his chest discomfort he states is now down to a [address] Of contact Dr[address] Benavides he recommends continuing to do the serial troponins will admit to [facility] discussed with hospitalist also consult nephrology since he is due for dialysis today Medical Records I reviewed the patient's medical records. Lab Data I reviewed the patient's lab results. 03/31/24 07:28 03/31/24 07:28 Radiology Impressions Chest X-Ray 03/31/24 07:09 IMPRESSION: 1. Borderline prominence of the cardiac silhouette. 2. Mild interstitial pulmonary edema versus infiltrates. 3. Linear bilateral lower chest pulmonary atelectasis, or scarring. 4. Degenerative and postsurgical changes are demonstrated, as described above. Laboratory Results WBC 8.39 10^3/uL (3.29-11.43) 03/31/24 07:28 RBC 2.80 10^6/uL (3.85-5.65) L 03/31/24 07:28 Hgb 9.60 g/dL (11.27-16.99) L 03/31/24 07:28 Hct 27.3 % (37-53) L 03/31/24 07: MCV 97.5 fl (82-101) 03/31/24 07: MCH 34.3 pg (27-33) H 03/31/24 07: MCHC 35.2 g/dL (30-55) D 03/31/24 07: RDW 13.2 % (12.1-15.1) 03/31/24 07: Plt Count 204 10^3/cmm (157-399) 03/31/24 07: MPV 10.0 fL (7.4-10.4) 03/31/24 07: Neut % (Auto) 72.6 % 03/31/24 07: Lymph % (Auto) 14.8 % 03/31/24 07: [place] % (Auto) 8.9 % 03/31/24 07: Eos % (Auto) 2.7 % 03/31/24 07: Baso % (Auto) 0.2 % 03/31/24 07: Neut # (Auto) 6.08 10^3/uL (1.8-7.7) 03/31/24 07:28 Lymph # (Auto) 1.2 10^3/uL (0.8-4.8) 03/31/24 07: [place] # (Auto) 0.8 10^3/uL (0.2-0.9) 03/31/24 07:28 Eos # (Auto) 0.2 10^3/uL (0.0-0.8) 03/31/24 07:28 Baso # (Auto) 0.0 10^3/uL (0.0-0.1) 03/31/24 07:28 Nucleated RBC % (auto) 0 % 03/31/24 07:28 Nucleated RBCs # 0.0 /100WBC 03/31/24 07:28 Sodium 133 mmol/L (136-145) L 03/31/24 07:28 Potassium 3.3 mmol/L (3.5-5.1) L 03/31/24 07:28 Chloride 94 mmol/L (98-107) L 03/31/24 07:28 Carbon Dioxide 26 mmol/L (22-29) 03/31/24 07:28 Anion Gap 16.3 (5-19) 03/31/24 07:28 BUN 41 mg/dL (6-20) H 03/31/24 07:28 Creatinine 5.9 mg/dL (0.7-1.2) H* 03/31/24 07:28 GFR Calculation 10.0 mL/min (90-130) L 03/31/24 07:28 Glucose 226 mg/dL (65-115) H 03/31/24 07:28 Calculated Osmolality 293 mOsm/kg (285-295) 03/31/24 07:28 Calcium 7.5 mg/dL (8.5-10.5) L 03/31/24 07:28 Total Bilirubin 0.7 mg/dL (0.15-1.2) 03/31/24 07:28 AST 10 U/L (0-40) 03/31/24 07:28 ALT 10 U/L (0-41) 03/31/24 07:28 Alkaline Phosphatase 86 U/L (40-130) 03/31/24 07:28 Troponin T Baseline 102 ng/L (0-15) H* 03/31/24 07:28 Total Protein 5.2 g/dL (6.6-8.7) L 03/31/24 07:28 Albumin 3.2 g/dL (3.5-5.2) L 03/31/24 07:28 Globulin 2.0 g/dL (1.3-4.6) 03/31/24 07:28 All radiology interpretation(s) finalized by discharge Discharge Plan Discharge Patient Disposition: Admitted As Inpatient Admit Provider: Rojas Garcia Clinical Impression: Chest pain, 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 mellitus, ESRD (end stage renal disease) Condition: Stable Coding Level of Care Code ED Channel Installer for Aaron Irene
--- NOTE | 2024-03-31 07:29 | PC.PHAR ---
med rec completed yesterday at 330pm patient is back today at 730am no discharged meds at this time med rec completed off of yesterday
[2024-03-31 07:37] LABS: Basophils % 0.2 %; Eosinophils # 0.2 10^3/uL (0.0-0.8); Eosinophils % 2.7 %; Hematocrit 27.3 % (37-53); Lymphocytes # 1.2 10^3/uL (0.8-4.8); Lymphocytes % 14.8 %; Mean Corpuscular HGB Conc 35.2 g/dL (30-55); Mean Corpuscular Hemoglobin 34.3 pg (27-33); Mean Corpuscular Volume 97.5 fl (82-101); Monocytes # 0.8 10^3/uL (0.2-0.9); Monocytes % 8.9 %; Neutrophils # 6.08 10^3/uL (1.8-7.7); Neutrophils % 72.6 %; Nucleated Red Blood Cells % 0 %; Platelet Count 204 10^3/cmm (157-399); Red Cell Distribution Width 13.2 % (12.1-15.1); White Blood Count 8.39 10^3/uL (3.29-11.43)
[2024-03-31 08:00] LABS: Alanine Aminotransferase 10 U/L (0-41); Albumin Level 3.2 g/dL (3.5-5.2); Alkaline Phosphatase 86 U/L (40-130); Anion Gap 16.3 (5-19); Aspartate Amino Transferase 10 U/L (0-40); Blood Urea Nitrogen 41 mg/dL (6-20); Calcium 7.5 mg/dL (8.5-10.5); Carbon Dioxide 26 mmol/L (22-29); Chloride 94 mmol/L (98-107); Creatinine Clr Calc Pharmacy 15.2616; Glucose 226 mg/dL (65-115); Osmolality Calculated 293 mOsm/kg (285-295); Potassium 3.3 mmol/L (3.5-5.1); Sodium 133 mmol/L (136-145); Total Bilirubin 0.7 mg/dL (0.15-1.2); Total Protein 5.2 g/dL (6.6-8.7)
[2024-03-31 08:06] LABS: Troponin(5th) Baseline 102 ng/L (0-15)
[2024-03-31] MEDS: nitroglycerin drip 50 MG/250 ML PREMIX IV (08:06)
--- NOTE | 2024-03-31 08:46 | P.HP_ITS ---
Providers/Chief Complaint 2 Admitting Physician: Rojas Garcia MD Primary Care Provider: Kp Montanez DO Chief Complaint: Chest pain History of Present Illness Rei Queen II is a 53 year old male with history of coronary disease, diabetes, and end-stage renal disease on hemodialysis was just in the hospital from March 24 to March 26 with chest discomfort and received an angioplasty to his circumflex and RCA who represents with chest discomfort. He reports this started, late Saturday or Saturday. Is in his left chest, pressure with radiation into his neck and shoulder. He feels a little dizzy and short of breath, and nauseous when it occurs. He reports it seems to come and go for a little bit. He came in yesterday to the ER and was sent home when troponin was flat. He presents again today for recurrence. He reports he has not taken any of his medication today, as he holds all of his medication until night on dialysis days. We discussed that is not appropriate, and that only certain medicines should be held prior to dialysis at the instruction of the data warehouse analyst such as medications that affect blood pressure. He reports his chest discomfort currently is much better on the nitroglycerin drip, dropping from a 10 to a 4 and still improving. Review of Systems 2 General: Reports: 10 or more systems reviewed and unremarkable except in HPI and below Medications/Allergies Home Medications Medication Instructions Recorded Confirmed Last Taken Type levothyroxine 88 mcg tablet 88 mcg PO QAM 02/09/21 03/31/24 03/23/24 History bumetanide 2 mg tablet 2 mg PO BID 08/16/22 03/31/24 03/23/24 History atorvastatin 40 mg tablet 40 mg PO QAM #90 tabs 10/25/22 03/31/24 03/23/24 Rx blood-glucose meter,continuous 02/27/23 03/31/24 03/15/23 History (Dexcom G7 [employer] Chair) diphenhydramine HCl 25 mg tablet 50 mg PO DAILY PRN Allergy Symptoms 05/02/23 03/31/24 03/23/24 History (Benadryl Allergy) insulin lispro 100 unit/mL See Rx Instructions .Route .COMPLEX 05/02/23 03/31/24 03/23/24 History subcutaneous pen (Humalog KwikPen (U-100) Insulin) gabapentin 100 mg capsule 100 mg PO BID 07/07/23 03/31/24 03/23/24 History AFO to left #1 ea 07/25/23 03/31/24 Unknown Rx Diabetic Shoes with Custom insoles #1 ea 07/25/23 03/31/24 Unknown Rx nitroglycerin 0.4 mg sublingual 0.4 mg sublingual Q5M PRN Chest 08/27/23 03/31/24 03/31/24 Rx tablet (Nitrostat) Pain #25 tabs hydrocortisone 2.5 % topical cream See Rx Instructions .Route .COMPLEX 10/01/23 03/31/24 Unknown History with perineal applicator (Procto-Med ) isosorbide mononitrate 30 mg See Rx Instructions .Route 10/03/23 03/31/24 03/23/24 Rx tablet,extended release 24 hr .COMPLEX #30 tabs lorazepam 1 mg tablet 1 mg PO Q8H PRN SEVER NAUSEA 10/24/23 03/31/24 03/23/24 History ranolazine 500 mg tablet,extended 500 mg PO BID 10/24/23 03/31/24 03/23/24 History release,12 hr vit B,C-folic ac 800 mcg-zinc 12.5 1 tab PO DAILY 10/29/23 03/31/24 03/23/24 History mg-selen-D3 2,000 unit-vit E tablet (RenaPlex-D) apixaban 2.5 mg tablet (Eliquis) 2.5 mg PO BID #60 tabs 10/30/23 03/31/24 03/23/24 Rx aspirin 81 mg tablet,delayed 81 mg PO DAILY #90 tabs 10/30/23 03/31/24 03/23/24 Rx release carvedilol 6.25 mg tablet 6.25 mg PO BID #90 tabs 10/30/23 03/31/24 03/23/24 Rx clopidogrel 75 mg tablet 75 mg PO DAILY #90 tabs 10/30/23 03/31/24 03/23/24 Rx blood-glucose sensor (Dexcom G7 #9 ea 11/25/23 03/31/24 Unknown Rx Sensor device) insulin degludec 200 unit/mL (3 See Rx Instructions .Route 12/04/23 03/31/24 03/23/24 Rx mL) subcutaneous pen (Tresiba .COMPLEX #9 mL FlexTouch U-200 insulin) tirzepatide 15 mg/0.5 mL See Rx Instructions .Route 12/30/23 03/31/24 03/20/24 Rx subcutaneous pen injector .COMPLEX #2 mL (Mounjaro) bupropion HCl 300 mg 24 hr tablet, 300 mg PO QAM #30 tabs 01/22/24 03/31/24 03/23/24 Rx extended release buspirone 10 mg tablet 10 mg PO BID #60 tabs 01/22/24 03/31/24 03/23/24 Rx fluoxetine 40 mg capsule 40 mg PO QAM #30 caps 01/22/24 03/31/24 03/23/24 Rx nifedipine 30 mg tablet,extended 30 mg PO DAILY 03/18/24 03/31/24 03/23/24 History release promethazine 25 mg tablet 25 mg PO Q6H 03/24/24 03/31/24 Unknown History tamsulosin 0.4 mg capsule 0.4 mg PO DAILY 03/24/24 03/31/24 Unknown History tizanidine 2 mg tablet 2 mg PO BID 03/24/24 03/31/24 Unknown History pantoprazole 40 mg tablet,delayed 40 mg PO DAILY #30 tabs 03/26/24 03/31/24 Unknown Rx release Allergies Allergy/AdvReac Type Severity Reaction Status Date / Time Iodinated Contrast Media Allergy Severe ALGY-Difficulty Verified 03/18/24 08:34 Breathing iodine Allergy Severe ALGY-Difficulty Verified 03/18/24 08:34 Breathing metoclopramide [From Reglan] Allergy Severe ALGY-Difficulty Verified 03/18/24 08:34 Breathing nalbuphine [From Nubain] Allergy Severe ADR-Diarrhe Verified 03/18/24 08:34 a naproxen [From Naprosyn] Allergy Severe ADR-Vomitin Verified 03/18/24 08:34 g Sulfa (Sulfonamide Allergy Severe ALGY-Difficulty Verified 03/18/24 08:34 Antibiotics) Breathing ketorolac Allergy Intermediate ADR-Nausea Verified 03/18/24 08:34 ondansetron [From Zofran] Allergy Intermediate ADR-Abdominal Verified 03/18/24 08:34 Pain prochlorperazine Allergy Intermediate ADR-Irritab Verified 03/18/24 08:34 [From Compazine] le codeine AdvReac Severe ALGY-Anaphy Verified 03/18/24 08:34 laxis haloperidol [From Haldol] AdvReac Intermediate ADR-Irritab Verified 03/18/24 08:34 le PFSH Acute 2 PFSH: Medical History (Updated 03/31/24 @ 09:06 by Rojas Garcia MD) Elevated troponin Essential hypertension Essential hypertension ESRD (end stage renal disease) Hypertension Psychiatric care 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 mellitus Chronic renal failure Chest pain Chest pain CRF (chronic renal failure) Chronic right SI joint pain Chronic systolic heart failure UTI (urinary tract infection) Peripheral arterial disease PVD (peripheral vascular disease) Worsening angina Angina at rest Chest pain ESRD (end stage renal disease) Uremic encephalopathy Generalized anxiety disorder ESRD (end stage renal disease) D-dimer, elevated Acute on chronic congestive heart failure History of pulmonary embolism Diabetes Acute kidney injury superimposed on CKD GERD (gastroesophageal reflux disease) Alcohol use disorder, moderate, in sustained remission Major depressive disorder, recurrent severe without psychotic features DVT (deep venous thrombosis) (~03/2020) Proximal left subclavian, basilic and brachial veins, started eliquis this stay, felt present prior to admission Chronic kidney disease -baseline Cr appears to be around 1.5 Atherosclerotic heart disease of [place] coronary artery with other forms of angina pectoris hx of CAD with prior stenting of proximal LAD, LCx, RCA Ischemic cardiomyopathy Onychodystrophy Chronic anticoagulation Eliquis Osteoarthritis of spine Hypothyroidism Hypertension Hyperlipidemia Diabetes Depression Anemia Foot drop, left H/O acute myocardial infarction H/O deep venous thrombosis developed compartment syndrome Surgical History Peritoneal dialysis catheter in situ (06/15/21) History of appendectomy 1995 History of excision of mass 06/08/2019: Subcutaneous mass on back History of removal of Port-a-Cath Port-A-Cath in place H/O vasectomy Hx of cholecystectomy History of coronary artery stent placement 5x H/O skin graft History of inguinal hernia repair, bilateral 2000 H/O removal of testicle left H/O colonoscopy (11/14/20) 08/2015 H/O esophagogastroduodenoscopy (11/14/20) 08/2015 Family History Grandfather Cancer skin cancer Parkinson disease Brother Hypertension Father Heart disease Mother Hypertension Stroke Aneurysm Grandmother Aneurysm Other Crohn's disease Denies family history of Anesthesia complication Bleeding disorder Social History Smoking and tobacco/nicotine status: never used tobacco/nicotine Second hand smoke exposure: No Alcohol intake: former Year of sobriety/quit date alcohol: 2016 Former alcohol use details: Only holidays - last use 05.19.2015 Substance/Drug Use: never Adopted: No Caregiver/support person: No Lives independently: Yes Household members: spouse Housing: Apartment Marital status: Number of children: 2 Number of grandchildren: 0 Highest education level completed: High School Graduate service: No Current occupational status: disabled Pets and animals: Yes Pets & animals: dog(s) Leisure activites: games and other Leisure activities details: watching TV Sexually active: Yes Do you think of yourself as: Straight/Heterosexual Current gender identity: Male Shannon/Oriental Orthodox: Methodist Special shannon needs: No Agree to transfusion: Yes Vitals/I&O/Wt Last Vital Signs Temp 98.1 F 03/31/24 07:07 Pulse 76 03/31/24 08:32 Resp 22 H 03/31/24 08:32 BP 133/61 03/31/24 08:32 Pulse Ox 96 03/31/24 08:32 O2 Del Method Room Air 03/31/24 08:32 Weight last 48 hrs Weight 98.43 kg Physical Exam 2 Narrative: General exam is white male, reporting chest discomfort that is improving HEENT: Atraumatic normocephalic. Neck is supple Cardiovascular regular rate and rhythm, no murmur, no S3 or S4, port noted left chest Lungs clear no wheezing or crackles Abdomen soft, positive bowel sounds. No obvious organomegaly exam is deferred Extremities no cyanosis clubbing or edema, cap refill brisk Skin no rash Neuro no focal deficits Data 03/31/24 07:28 03/31/24 07:28 Other Labs: Chest x-ray per my review demonstrates previous sternotomy, port left chest, atherosclerotic disease, no obvious infiltrate LFTs are normal Calcium 7.5, albumin 3.2 Troponin 102, rest are pending EKG per my review demonstrates quite a bit of artifact, left axis deviation, poor R wave progression, possible anterior myocardial infarction in the past. No obvious acute changes compared to previous EKGs. A&P Assessment and plan (1) Chest pain: Patient presents with recurrent chest pain after angioplasty last week of his circumflex and RCA He reports he has been compliant with his Plavix and aspirin, but does skip dosing in the morning to take later at night on days of dialysis He has been compliant with his Eliquis, following his fistulogram he had Saturday of last week. Trend troponins Cardiology consult Heparin drip Nitroglycerin drip Continue statin Continue beta-zaira Continue ranolazine Observation at this time secondary to recent admission, unknown if procedure will be needed depending upon cardiology opinion and troponin levels. Qualifiers: Chest pain type: unspecified Qualified Code(s): R07.9 - Chest pain, unspecified (2) Elevated troponin: Troponin elevation noted. It is increased from yesterday, probably reflection from his end-stage renal disease. He receives dialysis on Saturday and Saturday. Will trend troponin, and see if significant elevation occurs. (3) ESRD (end stage renal disease): Receives hemodialysis services Consult nephrology (4) 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 mellitus: Consistent carb diet Sliding scale insulin Plan Past history of PE. Chronically on Eliquis. Placed on heparin during this hospital stay and will transition back to Eliquis at discharge. Attestations 2 Medical Necessity Statement*: Will need less than 2 midnight stay for evaluation and treatment of recurrent chest discomfort in this patient with known coronary disease with recent angiogram and angioplasty. Diagnoses Chest pain R07.9 Chest pain type: unspecified Elevated troponin R77.8 ESRD (end stage renal disease) N18.6 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 mellitus E11.42 Time Spent (min) 44
--- NOTE | 2024-03-31 09:09 | ECG_ITS ---
[facility] Date: 2024-03-31 Pat Name: Rei Queen Department: Room: 103 Gender: Male Director Clinical Operations: : 1970 Requested By: Timo Hart Order Number: [id number] Becky MD: Karen Choi M.D. Measurements Intervals [place] Rate: 74 P: 3 SD: 226 QRS: -24 QRSD: 104 T: 55 QT: 407 QTc: 453 Interpretive Statements SINUS RHYTHM WITH FIRST DEGREE AV BLOCK POSSIBLE ANTERIOR MYOCARDIAL INFARCTION , PROBABLY OLD [30 ms Q WAVE IN V3/V4, OR R < 0.2 mV IN V4] nonspecific ST-T changes in the limb leads Compared to ECG 03/31/2024 07:10:10 First degree AV block now present Myocardial infarct finding now present Intraventricular conduction delay no longer present Electronically Signed On 04-06-2024 19:41:47 [facility] [employer]IA[facility] by Karen Choi M.D. [email or web address]
--- NOTE | 2024-03-31 09:25 | P.CONIM_ITS ---
Providers/Reason For Consult 2 Consulting Physician/Specialty*: Rony Villarreal MD/telemetry nephrology Reason for Consult*: ESRD care. Requesting Physician: Dr. Rojas Garcia Attending Physician: Rojas Garcia MD Primary Care Provider: Kp Montanez DO History of Present Illness History of Present Illness Rei Queen II is a 53 year old male history of ESRD on dialysis Saturday via left upper extremity AV fistula. History of pulm embolism history of CAD history of diabetes mellitus. Known CAD with stents recent cardiac catheterization in October 2023. History of hypothyroidism hyperlipidemia, and peripheral vascular disease. History of hypertension anxiety. Patient had recent angiogram with balloon angioplasty March 25, 2024. Patient was discharged on March 27, 2024. The patient developed chest pain over the weekend now presents to the emergency room. The patient did not have dialysis today. The patient complains of some shortness of breath little nausea no headaches no hearing or seeing changes no diarrhea positive chest pain. Renal was called to see the patient Review of Systems 2 Narrative: Weakness dyspnea on exertion nausea and chest pain. No hearing nursing changes no diarrhea. Medications/Allergies Home Medications Medication Instructions Recorded Confirmed Last Taken Type levothyroxine 88 mcg tablet 88 mcg PO QAM 02/09/21 03/31/24 03/23/24 History bumetanide 2 mg tablet 2 mg PO BID 08/16/22 03/31/24 03/23/24 History atorvastatin 40 mg tablet 40 mg PO QAM #90 tabs 10/25/22 03/31/24 03/23/24 Rx blood-glucose meter,continuous 02/27/23 03/31/24 03/15/23 History (Dexcom G7 Profile Saw Setup Operator) diphenhydramine HCl 25 mg tablet 50 mg PO DAILY PRN Allergy Symptoms 05/02/23 03/31/24 03/23/24 History (Benadryl Allergy) insulin lispro 100 unit/mL See Rx Instructions .Route .COMPLEX 05/02/23 03/31/24 03/23/24 History subcutaneous pen (Humalog KwikPen (U-100) Insulin) gabapentin 100 mg capsule 100 mg PO BID 07/07/23 03/31/24 03/23/24 History AFO to left #1 ea 07/25/23 03/31/24 Unknown Rx Diabetic Shoes with Custom insoles #1 ea 07/25/23 03/31/24 Unknown Rx nitroglycerin 0.4 mg sublingual 0.4 mg sublingual Q5M PRN Chest 08/27/23 03/31/24 03/31/24 Rx tablet (Nitrostat) Pain #25 tabs hydrocortisone 2.5 % topical cream See Rx Instructions .Route .COMPLEX 10/01/23 03/31/24 Unknown History with perineal applicator (Procto-Med HC) isosorbide mononitrate 30 mg See Rx Instructions .Route 10/03/23 03/31/24 03/23/24 Rx tablet,extended release 24 hr .COMPLEX #30 tabs lorazepam 1 mg tablet 1 mg PO Q8H PRN SEVER NAUSEA 10/24/23 03/31/24 03/23/24 History ranolazine 500 mg tablet,extended 500 mg PO BID 10/24/23 03/31/24 03/23/24 History release,12 hr vit B,C-folic ac 800 mcg-zinc 12.5 1 tab PO DAILY 10/29/23 03/31/24 03/23/24 History mg-selen-D3 2,000 unit-vit E tablet (RenaPlex-D) apixaban 2.5 mg tablet (Eliquis) 2.5 mg PO BID #60 tabs 10/30/23 03/31/24 03/23/24 Rx aspirin 81 mg tablet,delayed 81 mg PO DAILY #90 tabs 10/30/23 03/31/24 03/23/24 Rx release carvedilol 6.25 mg tablet 6.25 mg PO BID #90 tabs 10/30/23 03/31/24 03/23/24 Rx clopidogrel 75 mg tablet 75 mg PO DAILY #90 tabs 10/30/23 03/31/24 03/23/24 Rx blood-glucose sensor (Dexcom G7 #9 ea 11/25/23 03/31/24 Unknown Rx Sensor device) insulin degludec 200 unit/mL (3 See Rx Instructions .Route 12/04/23 03/31/24 03/23/24 Rx mL) subcutaneous pen (Tresiba .COMPLEX #9 mL FlexTouch U-200 insulin) tirzepatide 15 mg/0.5 mL See Rx Instructions .Route 12/30/23 03/31/24 03/20/24 Rx subcutaneous pen injector .COMPLEX #2 mL (Jennifer) bupropion HCl 300 mg 24 hr tablet, 300 mg PO QAM #30 tabs 01/22/24 03/31/24 03/23/24 Rx extended release buspirone 10 mg tablet 10 mg PO BID #60 tabs 01/22/24 03/31/24 03/23/24 Rx fluoxetine 40 mg capsule 40 mg PO QAM #30 caps 01/22/24 03/31/24 03/23/24 Rx nifedipine 30 mg tablet,extended 30 mg PO DAILY 03/18/24 03/31/24 03/23/24 History release promethazine 25 mg tablet 25 mg PO Q6H 03/24/24 03/31/24 Unknown History tamsulosin 0.4 mg capsule 0.4 mg PO DAILY 03/24/24 03/31/24 Unknown History tizanidine 2 mg tablet 2 mg PO BID 03/24/24 03/31/24 Unknown History pantoprazole 40 mg tablet,delayed 40 mg PO DAILY #30 tabs 03/26/24 03/31/24 Unknown Rx release Allergies Allergy/AdvReac Type Severity Reaction Status Date / Time Iodinated Contrast Media Allergy Severe ALGY-Difficulty Verified 03/18/24 08:34 Breathing iodine Allergy Severe ALGY-Difficulty Verified 03/18/24 08:34 Breathing metoclopramide [From Reglan] Allergy Severe ALGY-Difficulty Verified 03/18/24 08:34 Breathing nalbuphine [From Nubain] Allergy Severe ADR-Diarrhe Verified 03/18/24 08:34 a naproxen [From Naprosyn] Allergy Severe ADR-Vomitin Verified 03/18/24 08:34 g Sulfa (Sulfonamide Allergy Severe ALGY-Difficulty Verified 03/18/24 08:34 Antibiotics) Breathing ketorolac Allergy Intermediate ADR-Nausea Verified 03/18/24 08:34 ondansetron [From Zofran] Allergy Intermediate ADR-Abdominal Verified 03/18/24 08:34 Pain prochlorperazine Allergy Intermediate ADR-Irritab Verified 03/18/24 08:34 [From Compazine] le codeine AdvReac Severe ALGY-Anaphy Verified 03/18/24 08:34 laxis haloperidol [From Haldol] AdvReac Intermediate ADR-Irritab Verified 03/18/24 08:34 le Current Medications Generic Name Dose Route Start Last Admin Trade Name Frebari PRN Reason Stop Dose Admin Nitroglycerin/Dextrose 50 mg in 250 mls @ 0 mls/hr 03/31/24 07:45 03/31/24 08:06 Nitroglycerin Drip IV 5 mcg/min .Q0M RANDY 1.5 mls/hr Administration Protocol Per Protocol PFSH Acute 2 PFSH: Medical History (Updated 03/31/24 @ 09:06 by Rojas Garcia MD) Elevated troponin Essential hypertension Essential hypertension ESRD (end stage renal disease) Hypertension Psychiatric care 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 mellitus Chronic renal failure Chest pain Chest pain CRF (chronic renal failure) Chronic right SI joint pain Chronic systolic heart failure UTI (urinary tract infection) Peripheral arterial disease PVD (peripheral vascular disease) Worsening angina Angina at rest Chest pain ESRD (end stage renal disease) Uremic encephalopathy Generalized anxiety disorder ESRD (end stage renal disease) D-dimer, elevated Acute on chronic congestive heart failure History of pulmonary embolism Diabetes Acute kidney injury superimposed on CKD GERD (gastroesophageal reflux disease) Alcohol use disorder, moderate, in sustained remission Major depressive disorder, recurrent severe without psychotic features DVT (deep venous thrombosis) (~03/2020) Proximal left subclavian, basilic and brachial veins, started eliquis this stay, felt present prior to admission Chronic kidney disease -baseline Cr appears to be around 1.5 Atherosclerotic heart disease of [place] coronary artery with other forms of angina pectoris hx of CAD with prior stenting of proximal LAD, LCx, RCA Ischemic cardiomyopathy Onychodystrophy Chronic anticoagulation Eliquis Osteoarthritis of spine Hypothyroidism Hypertension Hyperlipidemia Diabetes Depression Anemia Foot drop, left H/O acute myocardial infarction H/O deep venous thrombosis developed compartment syndrome Surgical History Peritoneal dialysis catheter in situ (06/15/21) History of appendectomy 1995 History of excision of mass 06/08/2019: Subcutaneous mass on back History of removal of Port-a-Cath Port-A-Cath in place H/O vasectomy Hx of cholecystectomy History of coronary artery stent placement 5x H/O skin graft History of inguinal hernia repair, bilateral 2000 H/O removal of testicle left H/O colonoscopy (11/14/20) 08/2015 H/O esophagogastroduodenoscopy (11/14/20) 08/2015 Family History Grandfather Cancer skin cancer Parkinson disease Brother Hypertension Father Heart disease Mother Hypertension Stroke Aneurysm Grandmother Aneurysm Other Crohn's disease Denies family history of Anesthesia complication Bleeding disorder Social History Smoking and tobacco/nicotine status: never used tobacco/nicotine Second hand smoke exposure: No Alcohol intake: former Year of sobriety/quit date alcohol: 2016 Former alcohol use details: Only holidays - last use 05.19.2015 Substance/Drug Use: never Adopted: No Caregiver/support person: No Lives independently: Yes Household members: spouse Housing: Apartment Marital status: Number of children: 2 Number of grandchildren: 0 Highest education level completed: High School Graduate service: No Current occupational status: disabled Pets and animals: Yes Pets & animals: dog(s) Leisure activites: games and other Leisure activities details: watching TV Sexually active: Yes Do you think of yourself as: Straight/Heterosexual Current gender identity: Male Shannon/Catholic: Restorationist Special shannon needs: No Agree to transfusion: Yes Vitals/I&O/Wt Last Vital Signs Temp 98.1 F 03/31/24 07:07 Pulse 76 03/31/24 08:32 Resp 22 H 03/31/24 08:32 BP 133/61 03/31/24 08:32 Pulse Ox 96 03/31/24 08:32 O2 Del Method Room Air 03/31/24 08:32 Weight last 48 hrs Weight 98.43 kg Physical Exam 2 Narrative: Obese man comfortable in bed no apparent distress. Vital signs noted and stable. HEENT normocephalic atraumatic. Neck is supple. Lungs dullness at the bases and crackles. Heart regular with systolic murmur positive S1-S2. Abdomen is soft positive bowel sounds. Extremities 1+ edema. Left upper extremity AV fistula with thrill and bruit. Neuro awake alert oriented x 3. Data 03/31/24 07:28 03/31/24 07:28 Other Labs: Troponin 102. A&P Assessment and plan (1) ESRD (end stage renal disease): 53-year-old gentleman ESRD CAD, History of pulm embolism, diabetes mellitus., hypothyroidism hyperlipidemia, and peripheral vascular disease, hypertension and anxiety. Patient had a recent cardiac catheterization with in-stent stenosis and had 2 angioplasties performed. The patient is now back with chest pain. Patient to be evaluated by cardiology. Patient will have dialysis today or tomorrow based on cardiac clearance. 2. Anemia can use low-dose Epogen trying to keep hemoglobin under 10.5. 3. Monitor blood pressure with dialysis is stable now. Will follow the patient along with you. The patient was seen and examined using audiovisual equipment with the aid of a nurse. The patient consented to telehealth visit and to dialysis. Plan See above. Consult Attestations 2 Medical Necessity Statement: Chest pain, ESRD, coronary artery disease. Time Spent in Patient Care: Greater than 35 minutes (>than 50% of time spent in counselling and/or direct pt care on unit) . Coding Level of Care Code Acute Code for g Fwd Diagnoses ESRD (end stage renal disease) N18.6
[2024-03-31] MEDS: BuSPIRONE 10 mg Tablet PO ×2 (09:40→17:02)
[2024-03-31] MEDS: clopidogrel 75 mg Tablet PO (09:40)
[2024-03-31] MEDS: potassium chloride ER 20 mEq Tablet PO (09:40)
[2024-03-31] MEDS: pantoprazole DR 40 mg Tablet PO (09:40)
[2024-03-31] MEDS: bumetanide 1 mg Tablet 2 MG PO (09:40)
[2024-03-31] MEDS: tizanidine 4 mg Tablet 2 MG PO ×2 (09:41→17:02)
[2024-03-31] MEDS: gabapentin 100 mg Capsule PO ×2 (09:41→17:02)
[2024-03-31] MEDS: tamsulosin 0.4 mg Capsule PO (09:41)
[2024-03-31] MEDS: carvedilol 6.25 mg Tablet PO (09:41)
--- NOTE | 2024-03-31 09:45 | P.CONIM_ITS ---
Documented by User: Ellen Boucher NP 03/31/24 10:25 Providers/Reason For Consult 2 Consulting Physician/Specialty*: Rosi Vee MD Reason for Consult*: Chest pain Requesting Physician: Rojas Garcia MD Attending Physician: Rojas Garcia MD Primary Care Provider: Kp Montanez DO History of Present Illness History of Present Illness Rei Queen II is a 53 year old male who recently underwent left heart catheterization less than a week ago. He was noted to have significant 80% proximal RCA in-stent restenosis and 80% hazy distal circumflex stent edge stenosis both were treated with balloon angioplasty with excellent angiographic result as trying to avoid the extra layer of the stent. Rest of previously placed stent including proximal LAD and PDA appear to be patent with mild in- stent restenosis. Left ventricular end-diastolic pressure was 23 mmHg. Patient states he has been compliant with his medications. He was taking triple therapy with Eliquis, plavix, and aspirin. He states that he had his fistulogram last week, and they opened up a couple of places. He denies any abnormal bleeding. Patient came in yesterday with chest pain, troponins were flat, so he was discharged. He came back in today with chest pain. Troponin baseline is elevated at 102. This is chronically elevated most likely due to ESRF. He states in the middle of the night he developed chest pain. Nothing made this better or worse. He states this has been going on for 2 days without resolution. He stated it was a pressure in the center of his chest that radiated down the left arm. He states he still has chest pain at this time but it is much improved and is a 5 out of 10. He is currently on a nitro drip and getting a heparin drip added as well. Vital signs are stable. EKG's showed sinus rhythm with no acute ST or T wave changes seen. Review of Systems 2 Narrative: CONSTITUTIONAL: No fever chills weight loss or gain or night sweats. HEENT: Normocephalic, atraumatic RESPIRATORY: No cough, sputum, hemoptysis or wheezing. Reports mild shortness of breath, chronic CARDIOVASCULAR: reports chest pressure at the center of the chest, denies PND, orthopnea, lower extremity edema, presyncope or syncope. GI: no nausea vomiting diarrhea. 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 MUSCULOSKELETAL: No knee or joint pain or rashes. Medications/Allergies Home Medications Medication Instructions Recorded Confirmed Last Taken Type levothyroxine 88 mcg tablet 88 mcg PO QAM 02/09/21 03/31/24 03/23/24 History bumetanide 2 mg tablet 2 mg PO BID 08/16/22 03/31/24 03/23/24 History atorvastatin 40 mg tablet 40 mg PO QAM #90 tabs 10/25/22 03/31/24 03/23/24 Rx blood-glucose meter,continuous 02/27/23 03/31/24 03/15/23 History (Dexcom G7 [employer]) diphenhydramine HCl 25 mg tablet 50 mg PO DAILY PRN Allergy Symptoms 05/02/23 03/31/24 03/23/24 History (Benadryl Allergy) insulin lispro 100 unit/mL See Rx Instructions .Route .COMPLEX 05/02/23 03/31/24 03/23/24 History subcutaneous pen (Humalog KwikPen (U-100) Insulin) gabapentin 100 mg capsule 100 mg PO BID 07/07/23 03/31/24 03/23/24 History AFO to left #1 ea 07/25/23 03/31/24 Unknown Rx Diabetic Shoes with Custom insoles #1 ea 07/25/23 03/31/24 Unknown Rx nitroglycerin 0.4 mg sublingual 0.4 mg sublingual Q5M PRN Chest 08/27/23 03/31/24 03/31/24 Rx tablet (Nitrostat) Pain #25 tabs hydrocortisone 2.5 % topical cream See Rx Instructions .Route .COMPLEX 10/01/23 03/31/24 Unknown History with perineal applicator (Procto-Med ) isosorbide mononitrate 30 mg See Rx Instructions .Route 10/03/23 03/31/24 03/23/24 Rx tablet,extended release 24 hr .COMPLEX #30 tabs lorazepam 1 mg tablet 1 mg PO Q8H PRN SEVER NAUSEA 10/24/23 03/31/24 03/23/24 History ranolazine 500 mg tablet,extended 500 mg PO BID 10/24/23 03/31/24 03/23/24 History release,12 hr vit B,C-folic ac 800 mcg-zinc 12.5 1 tab PO DAILY 10/29/23 03/31/24 03/23/24 History mg-selen-D3 2,000 unit-vit E tablet (RenaPlex-D) apixaban 2.5 mg tablet (Eliquis) 2.5 mg PO BID #60 tabs 10/30/23 03/31/24 03/23/24 Rx aspirin 81 mg tablet,delayed 81 mg PO DAILY #90 tabs 10/30/23 03/31/24 03/23/24 Rx release carvedilol 6.25 mg tablet 6.25 mg PO BID #90 tabs 10/30/23 03/31/24 03/23/24 Rx clopidogrel 75 mg tablet 75 mg PO DAILY #90 tabs 10/30/23 03/31/24 03/23/24 Rx blood-glucose sensor (Dexcom G7 #9 ea 11/25/23 03/31/24 Unknown Rx Sensor device) insulin degludec 200 unit/mL (3 See Rx Instructions .Route 12/04/23 03/31/24 03/23/24 Rx mL) subcutaneous pen (Tresiba .COMPLEX #9 mL FlexTouch U-200 insulin) tirzepatide 15 mg/0.5 mL See Rx Instructions .Route 12/30/23 03/31/24 03/20/24 Rx subcutaneous pen injector .COMPLEX #2 mL (Jennifer) bupropion HCl 300 mg 24 hr tablet, 300 mg PO QAM #30 tabs 01/22/24 03/31/24 03/23/24 Rx extended release buspirone 10 mg tablet 10 mg PO BID #60 tabs 01/22/24 03/31/24 03/23/24 Rx fluoxetine 40 mg capsule 40 mg PO QAM #30 caps 01/22/24 03/31/24 03/23/24 Rx nifedipine 30 mg tablet,extended 30 mg PO DAILY 03/18/24 03/31/24 03/23/24 History release promethazine 25 mg tablet 25 mg PO Q6H 03/24/24 03/31/24 Unknown History tamsulosin 0.4 mg capsule 0.4 mg PO DAILY 03/24/24 03/31/24 Unknown History tizanidine 2 mg tablet 2 mg PO BID 03/24/24 03/31/24 Unknown History pantoprazole 40 mg tablet,delayed 40 mg PO DAILY #30 tabs 03/26/24 03/31/24 Unknown Rx release Allergies Allergy/AdvReac Type Severity Reaction Status Date / Time Iodinated Contrast Media Allergy Severe ALGY-Difficulty Verified 03/18/24 08:34 Breathing iodine Allergy Severe ALGY-Difficulty Verified 03/18/24 08:34 Breathing metoclopramide [From Reglan] Allergy Severe ALGY-Difficulty Verified 03/18/24 08:34 Breathing nalbuphine [From Nubain] Allergy Severe ADR-Diarrhe Verified 03/18/24 08:34 a naproxen [From Naprosyn] Allergy Severe ADR-Vomitin Verified 03/18/24 08:34 g Sulfa (Sulfonamide Allergy Severe ALGY-Difficulty Verified 03/18/24 08:34 Antibiotics) Breathing ketorolac Allergy Intermediate ADR-Nausea Verified 03/18/24 08:34 ondansetron [From Zofran] Allergy Intermediate ADR-Abdominal Verified 03/18/24 08:34 Pain prochlorperazine Allergy Intermediate ADR-Irritab Verified 03/18/24 08:34 [From Compazine] le codeine AdvReac Severe ALGY-Anaphy Verified 03/18/24 08:34 laxis haloperidol [From Haldol] AdvReac Intermediate ADR-Irritab Verified 03/18/24 08:34 le Current Medications Generic Name Dose Route Start Last Admin Trade Name Gilma PRN Reason Stop Dose Admin Bumetanide 2 mg 03/31/24 09:00 03/31/24 09:40 Bumetanide 1 Mg Tablet PO 2 mg BID RANDY Administration Buspirone HCl 10 mg 03/31/24 09:00 03/31/24 09:40 Buspirone 10 Mg Tablet PO 10 mg BID RANDY Administration Carvedilol 6.25 mg 03/31/24 09:00 03/31/24 09:41 Carvedilol 6.25 Mg Tablet PO 6.25 mg BID RANDY Administration Clopidogrel Bisulfate 75 mg 03/31/24 09:00 03/31/24 09:40 Clopidogrel 75 Mg Tablet PO 75 mg DAILY RANDY Administration Gabapentin 100 mg 03/31/24 09:00 03/31/24 09:41 Gabapentin 100 Mg Capsule PO 100 mg BID RANDY Administration Nitroglycerin/Dextrose 50 mg in 250 mls @ 0 mls/hr 03/31/24 07:45 03/31/24 08:06 Nitroglycerin Drip IV 5 mcg/min .Q0M RANDY 1.5 mls/hr Administration Protocol Per Protocol Pantoprazole Sodium 40 mg 03/31/24 09:00 03/31/24 09:[address] 40 Mg Tablet PO 40 mg DAILY RANDY Administration Tamsulosin HCl 0.4 mg 03/31/24 09:00 03/31/24 09:41 Tamsulosin 0.4 Mg Capsule PO 0.4 mg DAILY RANDY Administration Tizanidine HCl 2 mg 03/31/24 09:00 03/31/24 09:41 Tizanidine 4 Mg Tablet PO 2 mg BID RANDY Administration PFSH Acute 2 PFSH: Medical History (Updated 03/31/24 @ 22:10 by Rosi Vee MD) Elevated troponin Essential hypertension Essential hypertension ESRD (end stage renal disease) Hypertension Psychiatric care 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 mellitus Chronic renal failure Chest pain Chest pain CRF (chronic renal failure) Chronic right SI joint pain Chronic systolic heart failure UTI (urinary tract infection) Peripheral arterial disease PVD (peripheral vascular disease) Worsening angina Angina at rest Chest pain ESRD (end stage renal disease) Uremic encephalopathy Generalized anxiety disorder ESRD (end stage renal disease) D-dimer, elevated Acute on chronic congestive heart failure History of pulmonary embolism Diabetes Acute kidney injury superimposed on CKD GERD (gastroesophageal reflux disease) Alcohol use disorder, moderate, in sustained remission Major depressive disorder, recurrent severe without psychotic features DVT (deep venous thrombosis) (~03/2020) Proximal left subclavian, basilic and brachial veins, started eliquis this stay, felt present prior to admission Chronic kidney disease -baseline Cr appears to be around 1.5 Atherosclerotic heart disease of [place] coronary artery with other forms of angina pectoris hx of CAD with prior stenting of proximal LAD, LCx, RCA Ischemic cardiomyopathy Onychodystrophy Chronic anticoagulation Eliquis Osteoarthritis of spine Hypothyroidism Hypertension Hyperlipidemia Diabetes Depression Anemia Foot drop, left H/O acute myocardial infarction H/O deep venous thrombosis developed compartment syndrome Surgical History Peritoneal dialysis catheter in situ (06/15/21) History of appendectomy 1995 History of excision of mass 06/08/2019: Subcutaneous mass on back History of removal of Port-a-Cath Port-A-Cath in place H/O vasectomy Hx of cholecystectomy History of coronary artery stent placement 5x H/O skin graft History of inguinal hernia repair, bilateral 2000 H/O removal of testicle left H/O colonoscopy (11/14/20) 08/2015 H/O esophagogastroduodenoscopy (11/14/20) 08/2015 Family History Grandfather Cancer skin cancer Parkinson disease Brother Hypertension Father Heart disease Mother Hypertension Stroke Aneurysm Grandmother Aneurysm Other Crohn's disease Denies family history of Anesthesia complication Bleeding disorder Social History Smoking and tobacco/nicotine status: never used tobacco/nicotine Second hand smoke exposure: No Alcohol intake: former Year of sobriety/quit date alcohol: 2015 Former alcohol use details: Only holidays - last use 05.19.2015 Substance/Drug Use: never Adopted: No Caregiver/support person: No Lives independently: Yes Household members: spouse Housing: Apartment Marital status: Number of children: 2 Number of grandchildren: 0 Highest education level completed: High School Graduate service: No Current occupational status: disabled Pets and animals: Yes Pets & animals: dog(s) Leisure activites: games and other Leisure activities details: watching TV Sexually active: Yes Do you think of yourself as: Straight/Heterosexual Current gender identity: Male Shannon/Uatsdin: Bahai Special shannon needs: No Agree to transfusion: Yes Vitals/I&O/Wt Last Vital Signs Temp 98.1 F 03/31/24 07:07 Pulse 76 03/31/24 08:32 Resp 22 H 03/31/24 08:32 BP 133/61 03/31/24 08:32 Pulse Ox 96 03/31/24 08:32 O2 Del Method Room Air 03/31/24 08:32 Weight last 48 hrs Weight 217 lb Physical Exam 2 Narrative: GENERAL: Patient is alert, awake and oriented x3. HEART: Regular S1 and S2. No murmur, rub or gallop. LUNGS: Clear to auscultate bilaterally. CENTRAL NERVOUS SYSTEM: Grossly nonfocal. EXTREMITIES: Lower extremities with out edema bilaterally. Data 03/31/24 07:28 11/12/24 07:28 Other data: 12 lead EKG: SINUS RHYTHM INTRAVENTRICULAR CONDUCTION DELAY [130+ ms QRS DURATION] Compared to ECG 03/30/2024 15:30:10 Intraventricular conduction delay now present Myocardial infarct finding no longer present Left heart cath: Significant 80% proximal RCA in-stent restenosis and 80% hazy distal circumflex stent edge stenosis both were treated with balloon angioplasty with excellent angiographic result as trying to avoid the extra layer of the stent. Rest of previously placed stent including proximal LAD and PDA appear to be patent with mild in-stent restenosis. Left ventricular end-diastolic pressure was 23 mmHg. Patient states he has bee A&P Assessment and plan (1) Chest pain: Patient has been having constant chest pressure for about 2 days. He states this has improved after the nitro. Troponins are elevated at baseline. Will trend those. EKG NSR w/o acute ST or T wave abnormalities. At this time, will add colchicine to decrease inflammation of the heart. Continue ranexa. Qualifiers: Chest pain type: unspecified Qualified Code(s): R07.9 - Chest pain, unspecified (2) Non-ST elevation (NSTEMI) myocardial infarction: Status post balloon angioplasty of the proximal RCA and distal circumflex for severe in-stent restenosis. Excellent angiographic result MEGHANA-3 flow was noted. Continue aspirin Plavix. Patient has been compliant with medication. (3) Essential hypertension: Well-controlled continue medicine (4) ESRD (end stage renal disease): Patient receiving dialysis (5) Contrast media allergy: No heart cath needed at this time, but if contrast is needed he will need Benadryl and steroids (6) Pericarditis: Qualifiers: Pericarditis type: unspecified type Chronicity: chronic Plan Patient is having ongoing chest pain. Troponins are chronically elevated. Will trend. No acute EKG changes. At this time, we will observe patient. Continue aspirin and Plavix. Will add colchicine to decrease inflammation. Thank you, Dr. Garcia, for allowing us to take care of this very pleasant gentleman. Consult Attestations 2 Medical Necessity Statement: Deferred to primary. Coding Level of Care Code Acute Code for [facility] Diagnoses Chest pain R07.9 Chest pain type: unspecified Non-ST elevation (NSTEMI) myocardial infarction I21.4 Essential hypertension I10 ESRD (end stage renal disease) N18.6 Contrast media allergy Z91.041 Pericarditis I31.9 Pericarditis type: unspecified type Chronicity: chronic Documented by User: Rosi Vee MD 03/31/24 22:10 History of Present Illness History of Present Illness Rei Queen II is a 53 year old male who recently underwent left heart catheterization less than a week ago. He was noted to have significant 80% proximal RCA in-stent restenosis and 80% hazy distal circumflex stent edge stenosis both were treated with balloon angioplasty with excellent angiographic result as trying to avoid the extra layer of the stent. Rest of previously placed stent including proximal LAD and PDA appear to be patent with mild in- stent restenosis. Left ventricular end-diastolic pressure was 23 mmHg. Patient states he has been compliant with his medications. He was taking triple therapy with Eliquis, plavix, and aspirin. He states that he had his fistulogram last week, and they opened up a couple of places. He denies any abnormal bleeding. Patient came in yesterday with chest pain, troponins were flat, so he was discharged. He came back in today with chest pain. Troponin baseline is elevated at 102. This is chronically elevated most likely due to ESRF. Patient says chest pain is worse on deep breathing laying flat and relief bending forward appear to be more of pain in the pericarditis. Medications/Allergies Home Medications Medication Instructions Recorded Confirmed Last Taken Type levothyroxine 88 mcg tablet 88 mcg PO QAM 02/09/21 03/31/24 03/23/24 History bumetanide 2 mg tablet 2 mg PO BID 08/16/22 03/31/24 03/23/24 History atorvastatin 40 mg tablet 40 mg PO QAM #90 tabs 10/25/22 03/31/24 03/23/24 Rx blood-glucose meter,continuous 02/27/23 03/31/24 03/15/23 History (Dexcom G7 [employer]) diphenhydramine HCl 25 mg tablet 50 mg PO DAILY PRN Allergy Symptoms 05/02/23 03/31/24 03/23/24 History (Benadryl Allergy) insulin lispro 100 unit/mL See Rx Instructions .Route .COMPLEX 05/02/23 03/31/24 03/23/24 History subcutaneous pen (Humalog KwikPen (U-100) Insulin) gabapentin 100 mg capsule 100 mg PO BID 07/07/23 03/31/24 03/23/24 History AFO to left #1 ea 07/25/23 03/31/24 Unknown Rx Diabetic Shoes with Custom insoles #1 ea 07/25/23 03/31/24 Unknown Rx nitroglycerin 0.4 mg sublingual 0.4 mg sublingual Q5M PRN Chest 08/27/23 03/31/24 03/31/24 Rx tablet (Nitrostat) Pain #25 tabs hydrocortisone 2.5 % topical cream See Rx Instructions .Route .COMPLEX 10/01/23 03/31/24 Unknown History with perineal applicator (Procto-Med ) isosorbide mononitrate 30 mg See Rx Instructions .Route 10/03/23 03/31/24 03/23/24 Rx tablet,extended release 24 hr .COMPLEX #30 tabs lorazepam 1 mg tablet 1 mg PO Q8H PRN SEVER NAUSEA 10/24/23 03/31/24 03/23/24 History ranolazine 500 mg tablet,extended 500 mg PO BID 10/24/23 03/31/24 03/23/24 History release,12 hr vit B,C-folic ac 800 mcg-zinc 12.5 1 tab PO DAILY 10/29/23 03/31/24 03/23/24 History mg-selen-D3 2,000 unit-vit E tablet (RenaPlex-D) apixaban 2.5 mg tablet (Eliquis) 2.5 mg PO BID #60 tabs 10/30/23 03/31/24 03/23/24 Rx aspirin 81 mg tablet,delayed 81 mg PO DAILY #90 tabs 10/30/23 03/31/24 03/23/24 Rx release carvedilol 6.25 mg tablet 6.25 mg PO BID #90 tabs 10/30/23 03/31/24 03/23/24 Rx clopidogrel 75 mg tablet 75 mg PO DAILY #90 tabs 10/30/23 03/31/2424 Rx blood-glucose sensor (Dexcom G7 #9 ea 11/25/23 03/31/24 Unknown Rx Sensor device) insulin degludec 200 unit/mL (3 See Rx Instructions .Route 12/04/23 03/31/24 03/23/24 Rx mL) subcutaneous pen (Tresiba .COMPLEX #9 mL FlexTouch U-200 insulin) tirzepatide 15 mg/0.5 mL See Rx Instructions .Route 12/30/23 03/31/24 03/20/24 Rx subcutaneous pen injector .COMPLEX #2 mL (Mounjaro) bupropion HCl 300 mg 24 hr tablet, 300 mg PO QAM #30 tabs 01/22/24 03/31/24 03/23/24 Rx extended release buspirone 10 mg tablet 10 mg PO BID #60 tabs 01/22/24 03/31/24 03/23/24 Rx fluoxetine 40 mg capsule 40 mg PO QAM #30 caps 01/22/24 03/31/24 03/23/24 Rx nifedipine 30 mg tablet,extended 30 mg PO DAILY 03/18/24 03/31/24 03/23/24 History release promethazine 25 mg tablet 25 mg PO Q6H 03/24/24 03/31/24 Unknown History tamsulosin 0.4 mg capsule 0.4 mg PO DAILY 03/24/24 03/31/24 Unknown History tizanidine 2 mg tablet 2 mg PO BID 03/24/24 03/31/24 Unknown History pantoprazole 40 mg tablet,delayed 40 mg PO DAILY #30 tabs 03/26/24 03/31/24 Unknown Rx release Allergies Allergy/AdvReac Type Severity Reaction Status Date / Time Iodinated Contrast Media Allergy Severe ALGY-Difficulty Verified 03/18/24 08:34 Breathing iodine Allergy Severe ALGY-Difficulty Verified 03/18/24 08:34 Breathing metoclopramide [From Reglan] Allergy Severe ALGY-Difficulty Verified 03/18/24 08:34 Breathing nalbuphine [From Nubain] Allergy Severe ADR-Diarrhe Verified 03/18/24 08:34 a naproxen [From Naprosyn] Allergy Severe ADR-Vomitin Verified 03/18/24 08:34 g Sulfa (Sulfonamide Allergy Severe ALGY-Difficulty Verified 03/18/24 08:34 Antibiotics) Breathing ketorolac Allergy Intermediate ADR-Nausea Verified 03/18/24 08:34 ondansetron [From Zofran] Allergy Intermediate ADR-Abdominal Verified 03/18/24 08:34 Pain prochlorperazine Allergy Intermediate ADR-Irritab Verified 03/18/24 08:34 [From Compazine] le codeine AdvReac Severe ALGY-Anaphy Verified 03/18/24 08:34 laxis haloperidol [From Haldol] AdvReac Intermediate ADR-Irritab Verified 03/18/24 08:34 le PFSH Acute 2 PFSH: Medical History (Updated 03/31/24 @ 22:10 by Rosi Vee MD) Elevated troponin Essential hypertension Essential hypertension ESRD (end stage renal disease) Hypertension Psychiatric care 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 mellitus Chronic renal failure Chest pain Chest pain CRF (chronic renal failure) Chronic right SI joint pain Chronic systolic heart failure UTI (urinary tract infection) Peripheral arterial disease PVD (peripheral vascular disease) Worsening angina Angina at rest Chest pain ESRD (end stage renal disease) Uremic encephalopathy Generalized anxiety disorder ESRD (end stage renal disease) D-dimer, elevated Acute on chronic congestive heart failure History of pulmonary embolism Diabetes Acute kidney injury superimposed on CKD GERD (gastroesophageal reflux disease) Alcohol use disorder, moderate, in sustained remission Major depressive disorder, recurrent severe without psychotic features DVT (deep venous thrombosis) (~03/2020) Proximal left subclavian, basilic and brachial veins, started eliquis this stay, felt present prior to admission Chronic kidney disease -baseline Cr appears to be around 1.5 Atherosclerotic heart disease of [place] coronary artery with other forms of angina pectoris hx of CAD with prior stenting of proximal LAD, LCx, RCA Ischemic cardiomyopathy Onychodystrophy Chronic anticoagulation Eliquis Osteoarthritis of spine Hypothyroidism Hypertension Hyperlipidemia Diabetes Depression Anemia Foot drop, left H/O acute myocardial infarction H/O deep venous thrombosis developed compartment syndrome Surgical History Peritoneal dialysis catheter in situ (06/15/21) History of appendectomy 1995 History of excision of mass 06/08/2019: Subcutaneous mass on back History of removal of Port-a-Cath Port-A-Cath in place H/O vasectomy Hx of cholecystectomy History of coronary artery stent placement 5x H/O skin graft History of inguinal hernia repair, bilateral 1999 H/O removal of testicle left H/O colonoscopy (11/14/20) 08/2015 H/O esophagogastroduodenoscopy (11/14/20) 08/2015 Family History Grandfather Cancer skin cancer Parkinson disease Brother Hypertension Father Heart disease Mother Hypertension Stroke Aneurysm Grandmother Aneurysm Other Crohn's disease Denies family history of Anesthesia complication Bleeding disorder Social History Smoking and tobacco/nicotine status: never used tobacco/nicotine Second hand smoke exposure: No Alcohol intake: former Year of sobriety/quit date alcohol: 2015 Former alcohol use details: Only holidays - last use 05.19.2015 Substance/Drug Use: never Adopted: No Caregiver/support person: No Lives independently: Yes Household members: spouse Housing: Apartment Marital status: Number of children: 2 Number of grandchildren: 0 Highest education level completed: High School Graduate service: No Current occupational status: disabled Pets and animals: Yes Pets & animals: dog(s) Leisure activites: games and other Leisure activities details: watching TV Sexually active: Yes Do you think of yourself as: Straight/Heterosexual Current gender identity: Male Shannon/Uatsdin: Bahai Special shannon needs: No Agree to transfusion: Yes Data 03/31/24 07:28 03/31/24 07:28 A&P Assessment and plan (1) Chest pain: Qualifiers: Chest pain type: unspecified Qualified Code(s): R07.9 - Chest pain, unspecified (2) Non-ST elevation (NSTEMI) myocardial infarction: (3) Essential hypertension: (4) ESRD (end stage renal disease): (5) Contrast media allergy: (6) Pericarditis: Appear to me that patient has pericarditis component in the chest pain as well will try colchicine continue rest of medications and pain control. Qualifiers: Pericarditis type: unspecified type Chronicity: chronic Coding Level of Care Code Acute Code for [facility] Diagnoses Chest pain R07.9 Chest pain type: unspecified Non-ST elevation (NSTEMI) myocardial infarction I21.4 Essential hypertension I10 ESRD (end stage renal disease) N18.6 Contrast media allergy Z91.041 Pericarditis I31.9 Pericarditis type: unspecified type Chronicity: chronic
[2024-03-31] MEDS: heparin drip 25,000 UNIT/500 ML PREMIX 27.56 UNIT IV (10:02)
[2024-03-31] MEDS: ranolazine (12HR) 500 mg Tablet PO ×2 (10:04→17:02)
[2024-03-31] MEDS: heparin 5,000 unit/mL INJ 1 mL IVP (10:04)
[2024-03-31 10:23] LABS: Troponin 5 2HR 100.4 ng/L (0-15)
[2024-03-31 10:24] LABS: Troponin 5 2HR Delta -1.6 ABS# (0-10)
[2024-03-31] MEDS: colchicine 0.6 mg Tablet PO (10:55)
[2024-03-31] MEDS: heparin, porcine 1,000 unit/mL INJ 10 mL 1000 UNIT IV (10:56)
[2024-03-31 11:02] LABS: Glucose Point of Care 190 mg/dL (70-110)
--- NOTE | 2024-03-31 11:31 | PC.NURSE ---
off unit to Hemodialysis unit.
--- NOTE | 2024-03-31 11:35 | PC.HD ---
Heparin 1000 units loading dose administered via LAVF needle at 1120 per building construction inspector's orders. No bleeding/oozing noted at present.
--- NOTE | 2024-03-31 12:36 | PC.HD ---
BP trending lower during dialysis. Dialysate temperature reduced to 35.0C. Notified primary RNRoger. Instructed to hold nitro drip at this time and she will contact hospitalist.
[2024-03-31 13:48] LABS: Troponin 5 6HR 99.28 ng/L (0-15)
[2024-03-31 13:49] LABS: Troponin 5 6HR Delta -2.72 ng/L (0-12)
[2024-03-31 14:16] LABS: Glucose Point of Care 136 mg/dL (70-110)
--- NOTE | 2024-03-31 14:19 | PC.HD ---
With 1:15 left of treatment, patient awakened and c/o 8/10 pressure chest pain. Primary RN notified, as well as vacuum pan operator. Per vacuum pan operator, treatment terminated with one hour remaining. Blood rinsed back. BP after blood return was 108/80. UF goal was 2500; 1600 removed. Patient resting quietly, currently in no apparent distress.
--- NOTE | 2024-03-31 14:44 | ECG_ITS ---
[employer] Test Date: 2024-03-31 Pat Name: Rei Queen Department: Room: 103 Gender: Male Slots Manager: : 1970 Requested By: Timo Hart Order Number: [id number] Becky MD: Karen Choi M.D. Measurements Intervals [place] Rate: 68 P: 31 [place]: 229 QRS: -22 QRSD: 99 T: 47 QT: 414 QTc: 441 Interpretive Statements SINUS RHYTHM WITH FIRST DEGREE AV BLOCK ANTEROSEPTAL MYOCARDIAL INFARCTION , PROBABLY OLD [40+ ms Q WAVE IN V1-V4] Compared to ECG 03/31/2024 10:23:03 No significant changes Electronically Signed On 04-06-2024 19:41:07 H[employer]AN RESOURCES TRAINER by Karen Choi M.D. [email or web address]
[2024-03-31 16:25] LABS: Glucose Point of Care 165 mg/dL (70-110)
[2024-03-31] MEDS: acetaminophen 325 mg Tablet 650 MG PO (17:02)
[2024-03-31] MEDS: insulin lispro 100 unit/1 mL SUBCUT ×2 (17:03→21:23)
[2024-03-31] MEDS: nitroglycerin 1 gm/inch oint Pkt 0.5 INCH TOPICAL (17:09)
[2024-03-31 17:20] LABS: Partial Thromboplastin Time 231.1 SECONDS (23.9-36.7)
--- NOTE | 2024-03-31 17:27 | PC.NURSE ---
Informed Dr Garcia of elevated PTT of 231.1. Patient is on heparin drip. Received orders to stop for 2 hours and restart at 20% less than current dose. Will also redraw PTT at that time.
--- NOTE | 2024-03-31 19:21 | ECG_ITS ---
[employer] Test Date: 2024-03-31 Pat Name: Rei Queen Department: Room: 103 Gender: Male Periodontal Assistant: : 1970 Requested By: Rojas Madison Order Number: [id number] Becky MD: Karen Choi M.D. Measurements Intervals [place] Rate: 72 P: -47 [place]: 167 QRS: -42 QRSD: 105 T: 71 QT: 419 QTc: 461 Interpretive Statements ECTOPIC ATRIAL RHYTHM POSSIBLE LEFT ATRIAL ENLARGEMENT [-0.1mV P-WAVE IN V1/V2] INFERIOR MYOCARDIAL INFARCTION , PROBABLY OLD [40+ ms Q WAVE AND/OR ST/T ABNORMALITY IN II/aVF] ANTEROLATERAL MYOCARDIAL INFARCTION , OF INDETERMINATE AGE [40+ ms Q WAVE IN I/aVL/V3-V6] Compared to ECG 03/31/2024 14:44:42 Ectopic atrial rhythm now present Sinus rhythm no longer present First degree AV block no longer present Myocardial infarct finding still present Electronically Signed On 04-02-2024 21:42:38 GRAVEL HAULER by Karen Choi M.D. [id number]
[2024-03-31] MEDS: sodium chloride 0.9% 500 ML 999 ML IV (19:48)
--- NOTE | 2024-03-31 20:07 | PC.NURSE ---
took patients nitro paste off at 1920 due to BP 91/43, MD notified about hypotension and MD order 500mL NS bolus, orders entered. Patient started having chest pain at 6/10 MD EKG obtained, notifed MD gave orders to give 2mg IV push of morphine if bolus is successful to bring BP up.
[2024-03-31 20:31] LABS: Partial Thromboplastin Time > 250.0 SECONDS (23.9-36.7)
[2024-03-31 21:13] LABS: Glucose Point of Care 258 mg/dL (70-110)
[2024-03-31 21:27] LABS: Partial Thromboplastin Time 33.6 SECONDS (23.9-36.7)
--- NOTE | 2024-03-31 22:02 | PC.NURSE ---
with Dr. Garcia's orders to restart the heparin drip at 20% less than current dose, heparin drip was restarted at 22mL/hr from 27.5
[2024-03-31] MEDS: morphine 4 mg/mL SDV 1 mL 2 MG IVP (22:32)
[2024-03-31] MEDS: heparin drip 25,000 UNIT/500 ML PREMIX 22 UNIT IV (23:25)
[2024-04-01] VITALS (13 sets, daily range): BP systolic 74–148; BP diastolic 42–69; PULSE 66–77; RESP 13–18; TEMP 36.4–36.9; O2SAT 92–97
[2024-04-01] MEDS: trazodone 100 mg Tablet 400 MG PO (00:01)
[2024-04-01 04:11] LABS: Basophils # 0.1 10^3/uL (0.0-0.1); Basophils % 0.9 %; Eosinophils # 0.4 10^3/uL (0.0-0.8); Eosinophils % 5.3 %; Hematocrit 28.5 % (37-53); Lymphocytes # 1.8 10^3/uL (0.8-4.8); Mean Corpuscular HGB Conc 33.7 g/dL (30-55); Mean Corpuscular Hemoglobin 33.3 pg (27-33); Mean Platelet Volume 10.1 fL (7.4-10.4); Monocytes # 0.7 10^3/uL (0.2-0.9); Neutrophils # 3.55 10^3/uL (1.8-7.7); Neutrophils % 54.3 %; Nucleated Red Blood Cells % 0 %; Platelet Count 209 10^3/cmm (157-399); Red Blood Count 2.88 10^6/uL (3.85-5.65); Red Cell Distribution Width 13.3 % (12.1-15.1); White Blood Count 6.55 10^3/uL (3.29-11.43)
[2024-04-01 04:27] LABS: Alanine Aminotransferase 11 U/L (0-41); Albumin Level 3.3 g/dL (3.5-5.2); Alkaline Phosphatase 89 U/L (40-130); Anion Gap 13.9 (5-19); Aspartate Amino Transferase 11 U/L (0-40); Blood Urea Nitrogen 28 mg/dL (6-20); Calcium 7.7 mg/dL (8.5-10.5); Carbon Dioxide 26 mmol/L (22-29); Chloride 99 mmol/L (98-107); Creatinine Clr Calc Pharmacy 22.8615; Globulin 2.4 g/dL (1.3-4.6); Glomerular Filtration Rate 15.7 mL/min (90-130); Glucose 166 mg/dL (65-115); Magnesium 1.7 mg/dL (1.7-2.3); Osmolality Calculated 289 mOsm/kg (285-295); Potassium 3.9 mmol/L (3.5-5.1); Sodium 135 mmol/L (136-145); Total Bilirubin 0.6 mg/dL (0.15-1.2); Total Protein 5.7 g/dL (6.6-8.7)
[2024-04-01 04:32] LABS: Partial Thromboplastin Time 84.2 SECONDS (23.9-36.7)
[2024-04-01] MEDS: atorvastatin 40 mg Tablet PO (05:13)
[2024-04-01] MEDS: fluoxetine 20 mg Capsule 40 MG PO (05:13)
[2024-04-01] MEDS: levothyroxine 88 mcg Tablet PO (05:13)
[2024-04-01] MEDS: nitroglycerin 1 gm/inch oint Pkt 0.5 INCH TOPICAL (05:13)
[2024-04-01] MEDS: buPROPion XL (24 HR) 300 mg Tablet PO (05:13)
[2024-04-01 06:58] LABS: Glucose Point of Care 96 mg/dL (70-110)
[2024-04-01] MEDS: pantoprazole DR 40 mg Tablet PO (09:09)
[2024-04-01] MEDS: tamsulosin 0.4 mg Capsule PO (09:09)
[2024-04-01] MEDS: ranolazine (12HR) 500 mg Tablet PO ×2 (09:09→17:50)
[2024-04-01] MEDS: aspirin 81 mg EC Tablet PO (09:09)
[2024-04-01] MEDS: carvedilol 6.25 mg Tablet PO ×2 (09:10→17:50)
[2024-04-01] MEDS: isosorbide mononitrate ER 30 mg Tablet PO (09:10)
[2024-04-01] MEDS: apixaban 5 mg Tablet 2.5 MG PO ×2 (09:10→20:34)
[2024-04-01] MEDS: BuSPIRONE 10 mg Tablet PO ×2 (09:10→17:50)
[2024-04-01] MEDS: clopidogrel 75 mg Tablet PO (09:10)
[2024-04-01] MEDS: colchicine 0.6 mg Tablet PO (09:13)
[2024-04-01] MEDS: tizanidine 4 mg Tablet 2 MG PO ×2 (09:16→20:34)
[2024-04-01] MEDS: gabapentin 100 mg Capsule PO ×2 (09:16→17:50)
--- NOTE | 2024-04-01 09:43 | P.PN_ITS ---
Subjective 2 Subjective: The patient was seen and examined. Patient complains of swelling. He still has chest pain. He has no nausea vomiting he has no diarrhea. He was started on colchicine for question of pericarditis. He denies fevers or chills or diarrhea. Patient states that he bled significantly after dialysis when removing the needles yesterday. Medications: Reviewed: Yes Medication Review Details: Current Medications Acetaminophen (Acetaminophen 325 Mg Tablet) 650 mg PO Q6H PRN PRN Reason: Mild/Mod Pain Or Temp >/= 101 Last Admin: 03/31/24 17:02 Dose: 650 mg Apixaban (Apixaban 5 Mg Tablet) 2.5 mg PO BID@0900,2100 [facility] Last Admin: 04/01/24 09:10 Dose: 2.5 mg Aspirin (Aspirin 81 Mg Ec Tablet) 81 mg PO DAILY [facility] Last Admin: 04/01/24 09:09 Dose: 81 mg Atorvastatin Calcium ([facility] 40 Mg Tablet) [facility] [place] Admin: 04/01/24 05:13 Dose: 40 mg Bupropion HCl (Bupropion Xl (24 Hr) 300 Mg Tablet) [facility] [place] [place] [facility] [place] Admin: 04/01/24 05:13 Dose: 300 mg Buspirone HCl (Buspirone 10 Mg Tablet) 10 mg PO BID [facility] Last Admin: 04/01/24 09:10 Dose: 10 mg Carvedilol (Carvedilol 6.25 Mg Tablet) 6.25 mg PO BID [facility] Last Admin: 04/01/24 09:10 Dose: 6.25 mg Clopidogrel Bisulfate (Clopidogrel 75 Mg Tablet) 75 mg PO DAILY [facility] Last Admin: 04/01/24 09:10 Dose: 75 mg Colchicine (Colchicine 0.6 Mg Tablet) 0.6 mg PO DAILY [facility] Last Admin: 04/01/24 09:13 Dose: 0.6 mg Fluoxetine HCl (Fluoxetine 20 Mg Capsule) [facility] [place] [place] Admin: 04/01/24 05:13 Dose: 40 mg Gabapentin (Gabapentin 100 Mg Capsule) 100 mg PO BID [facility] Last Admin: 04/01/24 09:16 Dose: 100 mg Glucagon (Glucagon 1 Mg/Ml Kit 1 Ml) 1 mg IM ONCE PRN; Protocol PRN Reason: Adult Acute Hypoglycemia Nursing Prot. Nitroglycerin/Dextrose (Nitroglycerin Drip) 50 mg in 250 mls @ 0 mls/hr IV .Q0M RANDY; Protocol Last Titration: 03/31/24 12:25 Dose: 0 mcg/min, 0 mls/hr Dextrose (D5w) 500 mls @ 0 mls/hr IV ONCE PRN; Protocol PRN Reason: Adult Acute Hypoglycemia Prot Dextrose (D10w) 125 mls @ 750 mls/hr IV PRN PRN; Protocol PRN Reason: Adult Acute Hypoglycemia Nursing Protocol Dextrose (D10w) 250 mls @ 1,000 mls/hr IV PRN PRN; Protocol PRN Reason: Adult Acute Hypoglycemia Nursing Protocol Insulin Human Lispro (Insulin Lispro 100 Unit/1 Ml) 0 unit SUBCUT WM&BEDTIME [facility]; Protocol Last Admin: 04/01/24 08:10 Dose: Not Given Isosorbide Mononitrate (Isosorbide Mononitrate Er 30 Mg Tablet) 30 mg PO DAILY [facility] Last Admin: 04/01/24 09:10 Dose: 30 mg Levothyroxine Sodium (Levothyroxine 88 Mcg Tablet) 88 mcg PO QAM [facility] Last Admin: 04/01/24 05:13 Dose: 88 mcg Pantoprazole Sodium (Pantoprazole Dr 40 Mg Tablet) 40 mg PO DAILY [facility] Last Admin: 04/01/24 09:09 Dose: 40 mg Ranolazine (Ranolazine (12hr) 500 Mg Tablet) 500 mg PO BID [facility] Last Admin: 04/01/24 09:09 Dose: 500 mg Tamsulosin HCl (Tamsulosin 0.4 Mg Capsule) 0.4 mg PO DAILY [facility] Last Admin: 04/01/24 09:09 Dose: 0.4 mg Tizanidine HCl (Tizanidine 4 Mg Tablet) 2 mg PO BID [facility] Last Admin: 04/01/24 09:16 Dose: 2 mg Trazodone HCl (Trazodone 100 Mg Tablet) 400 mg PO BEDTIME PRN PRN Reason: INSOMNIA Last Admin: 04/01/24 00:01 Dose: 400 mg Vitals/I&O/Wt Last Vital Signs Temp 97.6 F 04/01/24 07:54 Pulse 71 04/01/24 07:54 Resp 14 04/01/24 07:54 BP 126/69 04/01/24 07:54 Pulse Ox 92 04/01/24 07:54 O2 Del Method Room Air 04/01/24 07:54 03/31/24 04/01/24 04/01/24 22:59 06:59 14:59 Intake Total 1424.863 / 2375.338 633.267 / 3008.605 326.233 / 326.233 Balance 1424.863 / 270.338 633.267 / 903.605 326.233 / 326.233 Weight last 48 hrs Weight 100.97 kg Weight 101.4 kg Weight 98.43 kg Weight 98.43 kg Physical Exam 2 Narrative: Obese man uncomfortable in bed, no apparent resp distress. Vital signs noted and stable. HEENT normocephalic atraumatic. Neck is supple. Lungs dullness at the bases and crackles. Heart regular with systolic murmur positive S1-S2. Abdomen is soft positive bowel sounds. Extremities 1+ edema. Left upper extremity AV fistula with thrill and bruit. Neuro awake alert oriented x 3. Data 04/01/24 04:00 04/01/24 04:00 A&P Assessment and plan (1) ESRD (end stage renal disease): 53-year-old gentleman ESRD CAD, History of pulm embolism, diabetes mellitus., hypothyroidism hyperlipidemia, and peripheral vascular disease, hypertension and anxiety. Patient had a recent cardiac catheterization with in-stent stenosis and had 2 angioplasties performed. The patient is now back with chest pain. Patient was evaluated by cardiology. He was started on colchicine. Given that he is ESRD, will decrease colchicine to 0.3 mg d Patient had dialysis yesterday - developed CP and bleed from AVF. monitor avf tomorrow and try to remove permacath soon. 2. Anemia can use low-dose Epogen trying to keep hemoglobin under 10.5. 3. Blood pressure stable. Will follow the patient along with you. The patient was seen and examined using audiovisual equipment with the aid of a nurse. The patient consented to telehealth visit and to dialysis. Plan See above. Attestations 2 Medical Necessity Statement*: Chest pain within 1 week of recent angioplasty as per cardiology. Time Spent in Patient Care: 16 - 35 minutes (>than 50% of time sp ent in counselling and/or direct pt care on unit) . Coding Level of Care Code Acute Code for [facility] Diagnoses ESRD (end stage renal disease) N18.6
--- NOTE | 2024-04-01 10:06 | PC.CHAP ---
Pastoral Care Encounter/Spiritual Assessment Type of Contact [] Declined network specialist visit [] Patient/Family/Request visit [] Outpatient visit [] Follow-up visit [] Physician referral [] Code/Alert [x] Routine visit [] Staff referral [] Actively dying [] Patient sleeping [x] Family support [] [] Out of room [] Palliative care [] [] Receiving care in room [] Pre-surgical visit [] Trauma [] Long length of stay [] ICU visit [] Other: Relational/Emotional Strength [x] Patient feels connected with others/family/visitors/staff [] Distress [] Loneliness/isolation [] Abandonment Spirituality of Patient [x] Person of Shannon [] Attends Tenriism of their Shannon [x] Believes in Prayer [] Reads Bible or Worship materials [] There are Spiritual issues to be addressed Guide Rail [employer]er Interventions [x] Prayer [x] Active listening [] Non-anxious presence [x] Spiritual/emotional support [] Crisis/trauma care [] Spiritual counseling [] Bereavement support [] Provided bereavement packet [] Provided Bible/devotional materials [] Provided toy/stuffed animal, coloring book to patient or family member [] Provided Communion [] Anointing/[place] [] Salvation [x] Completed spiritual assessment [] Other: Impact on Illness or Injury [] Angry [] Fearful [] Anxious [] Often cries [] Exhaustion [] Unable to work [] Unable to attend jew [] Unable to walk/stand [] Unable to read [] Unable to drive [] Unable to eat/drink [] Unable to sleep [] Unable to be with family [] Patient intubated [] Other: Summary Time spent with patient 5 min
--- NOTE | 2024-04-01 11:23 | P.PN_ITS ---
Subjective 2 Subjective: Rei reports his chest pain is less. He does feel dizzy and woozy when he gets up. Medications: Reviewed: Yes Vitals/I&O/Wt Last Vital Signs Temp 97.6 F 04/01/24 07:54 Pulse 75 04/01/24 11:15 Resp 13 04/01/24 11:15 BP 118/54 04/01/24 11:15 Pulse Ox 92 04/01/24 07:54 O2 Del Method Room Air 04/01/24 11:15 O2 Flow Rate 96 04/01/24 11:15 03/31/24 04/01/24 04/01/24 22:59 06:59 14:59 Intake Total 1424.863 / 2375.338 633.267 / 3008.605 326.233 / 326.233 Balance 1424.863 / 270.338 633.267 / 903.605 326.233 / 326.233 Weight last 48 hrs Weight 100.97 kg Weight 101.4 kg Weight 98.43 kg Weight 98.43 kg Physical Exam 2 Narrative: General exam no distress Neck is supple Cardiovascular regular rate and rhythm, no murmur, no S3 or S4, port noted left chest Lungs clear no wheezing or crackles Abdomen soft, positive bowel sounds. No obvious organomegaly Extremities no cyanosis clubbing or edema, cap refill brisk Data 04/01/24 04:00 04/01/24 04:00 A&P Assessment and plan (1) Chest pain: Patient presents with recurrent chest pain after angioplasty last week of his circumflex and RCA He reports he has been compliant with his Plavix and aspirin, but does skip dosing in the morning to take later at night on days of dialysis He has been compliant with his Eliquis, following his fistulogram he had Saturday of last week. Troponin trend was not concerning Cardiology consult appreciated Will discontinue heparin drip, placed back on Eliquis Discontinue nitroglycerin ointment, initiate Imdur Continue statin Continue beta-zaira Continue ranolazine Secondary to some dizziness and lower blood pressure following dialysis, continue to monitor inpatient under an observation status. Discontinue nifedipine secondary to lower blood pressures Hold Bumex this morning, reassess whether reduced dose could be initiated this afternoon. Qualifiers: Chest pain type: unspecified Qualified Code(s): R07.9 - Chest pain, unspecified (2) Elevated troponin: Appears to be a type II elevation (3) ESRD (end stage renal disease): Receives hemodialysis services Appreciate nephrology consultation (4) 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 mellitus: Consistent carb diet Sliding scale insulin Plan Past history of PE. Discontinue heparin, resume Eliquis. Attestations 2 Medical Necessity Statement*: Needs continued hospitalization secondary to blood pressure variations throughout yesterday with dialysis, and still feeling some chest discomfort and dizziness today. Diagnoses Chest pain R07.9 Chest pain type: unspecified Elevated troponin R77.8 ESRD (end stage renal disease) N18.6 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 mellitus E11.42 Time Spent (min) 25
[2024-04-01 11:36] LABS: Glucose Point of Care 176 mg/dL (70-110)
[2024-04-01] MEDS: insulin lispro 100 unit/1 mL SUBCUT ×3 (12:07→21:34)
--- NOTE | 2024-04-01 13:32 | P.PN_ITS ---
Documented by User: Ellen Boucher NP 04/01/24 13:40 Subjective 2 Subjective: Patient doing okay today. He is sitting up in bed. He states his chest pressure has improved. Overall, no major complaints this morning. VSS. No rhythm changes. Medications: Reviewed: Yes Vitals/I&O/Wt Last Vital Signs Temp 98.5 F 04/01/24 11:57 Pulse 75 04/01/24 11:57 Resp 18 04/01/24 11:57 BP 123/61 04/01/24 11:57 Pulse Ox 95 04/01/24 11:57 O2 Del Method Room Air 04/01/24 11:57 O2 Flow Rate 96 04/01/24 11:15 03/31/24 04/01/24 04/01/24 22:59 06:59 14:59 Intake Total 1424.863 / 2375.338 633.267 / 3008.605 566.233 / 566.233 Balance 1424.863 / 270.338 633.267 / 903.605 566.233 / 566.233 Weight last 48 hrs Weight 222 lb 9.6 oz Weight 223 lb 8.78 oz Weight 217 lb Weight 217 lb Physical Exam 2 Narrative: General: No apparent distress, healthy appearing, well nourished Muskuloskeletal: Full ROM Lymphatic: no lymphedema noted Respiratory: Normal respiratory effort, clear to auscultation bilaterally throughout all lung saldaña, no use of accessory muscles Cardio: No JVD, regular rate, regular rhythm, S1 S2 normal, no murmurs, peripheral pulses 2+ throughout Extremities: Full ROM, normal, normal capillary refill, no cyanosis or edema Neuro: Alert and oriented x4, no focal motor deficits Psych: Affect normal, denies suicidal ideation, mental status grossly normal Skin: No rashes or lesions noted, no wounds Data 04/01/24 04:00 04/01/24 04:00 A&P Assessment and plan (1) Pericarditis: Appear to me that patient has pericarditis component in the chest pain as well will continue colchicine continue rest of medications and pain control. Qualifiers: Chronicity: acute Pericarditis type: unspecified type Qualified Code(s): I30.9 - Acute pericarditis, unspecified (2) Chest pain: Patient states his chest pressure has improved. We had started him on colchicine for possible post NSTEMI pericarditis. Will continue this. Continue Ranexa. Qualifiers: Chest pain type: unspecified Qualified Code(s): R07.9 - Chest pain, unspecified (3) Non-ST elevation (NSTEMI) myocardial infarction: Status post balloon angioplasty of the proximal RCA and distal circumflex for severe in-stent restenosis. Excellent angiographic result MEGHANA-3 flow was noted. Continue aspirin Plavix. Patient has been compliant with medication. (4) Essential hypertension: Well-controlled continue medicine (5) ESRD (end stage renal disease): Patient receiving dialysis (6) Contrast media allergy: No heart cath needed at this time, but if contrast is needed he will need Benadryl and steroids Plan Patient is having ongoing chest pain. Troponins are chronically elevated. Delta was negative. No acute EKG changes. At this time, we will observe patient as he is improving. Continue aspirin and Plavix. Will continue colchicine to decrease inflammation. Attestations 2 Medical Necessity Statement*: Deferred to primary care. Coding [facility] Acute pericarditis, unspecified type I30.9 Chronicity: acute Pericarditis type: unspecified type Chest pain R07.9 Chest pain type: unspecified Non-ST elevation (NSTEMI) myocardial infarction I21.4 Essential hypertension I10 ESRD (end stage renal disease) N18.6 Contrast media allergy Z91.041 Documented by User: Rosi Vee MD 04/01/24 21:27 Subjective 2 Subjective: Patient was evaluated and cared for in conjunction with an advanced practice practitioner. I personally examined the patient and reviewed the chart and all pertinent data including imaging, telemetry, and laboratory results. I discussed the patient in detail with the advanced practice practitioner. Please see their note for complete H&P testing result and agreed upon plan of care for the patient. Feeling better today Blood pressure was orthostatic GENERAL: Patient is alert, awake and oriented x3. HEART: Regular S1 and S2. No murmur, rub or gallop. LUNGS: Clear to auscultate bilaterally. CENTRAL NERVOUS SYSTEM: Grossly nonfocal. EXTREMITIES: Lower extremities with out edema bilaterally. Assessment and plan Chest pain History of coronary disease CKD on dialysis Orthostatic hypotension Will switch from carvedilol to metoprolol to reduce orthostasis May can give IV fluid Colchicine for uremic pericarditis Possible discharge tomorrow Patient doing okay today. He is sitting up in bed. He states his chest pressure has improved. Overall, no major complaints this morning. VSS. No rhythm changes. Data 04/01/24 04:00 04/01/24 04:00 A&P Assessment and plan (1) Pericarditis: Qualifiers: Chronicity: acute Pericarditis type: unspecified type Qualified Code(s): I30.9 - Acute pericarditis, unspecified (2) Chest pain: Qualifiers: Chest pain type: unspecified Qualified Code(s): R07.9 - Chest pain, unspecified (3) Non-ST elevation (NSTEMI) myocardial infarction: (4) Essential hypertension: (5) ESRD (end stage renal disease): (6) Contrast media allergy: Coding Level of Care Code Acute Code for [facility] Diagnoses Acute pericarditis, unspecified type I30.9 Chronicity: acute Pericarditis type: unspecified type Chest pain R07.9 Chest pain type: unspecified Non-ST elevation (NSTEMI) myocardial infarction I21.4 Essential hypertension I10 ESRD (end stage renal disease) N18.6 Contrast media allergy Z91.041
[2024-04-01 17:42] LABS: Glucose Point of Care 220 mg/dL (70-110)
[2024-04-01] MEDS: bumetanide 1 mg Tablet PO (17:50)
--- NOTE | 2024-04-01 19:02 | PC.NURSE ---
notified that pt is going to [facility] room 271. aslo notified pt on the transfer.
--- NOTE | 2024-04-01 20:01 | PC.NURSE ---
Orthostatic BP check Pt started to complain of being dizzy and develop chest pain while sitting up and going to bathroom. Notified POCKET STITCHER Ellen since she is rounding on the floor. order to recheck orthostatic VS. laying-121/54 sitting-94/42 standing-74/47. Pt did develop some chest pain at this time and when laid back in bed. legs elevated. BP increased to 135/72. Pain is not getting any worse per pt.
[2024-04-01] MEDS: morphine 4 mg/mL SDV 1 mL 2 MG IVP (20:33)
[2024-04-01 20:43] LABS: Glucose Point of Care 198 mg/dL (70-110)
[2024-04-02] VITALS (10 sets, daily range): BP systolic 99–151; BP diastolic 36–84; PULSE 69–83; RESP 16–18; TEMP 36.4–37; O2SAT 93–97
[2024-04-02] MEDS: morphine 4 mg/mL SDV 1 mL 2 MG IVP ×4 (02:18→21:23)
[2024-04-02 05:35] LABS: Basophils % 0.6 %; Eosinophils # 0.3 10^3/uL (0.0-0.8); Eosinophils % 4.3 %; Hematocrit 28.3 % (37-53); Lymphocytes # 1.8 10^3/uL (0.8-4.8); Lymphocytes % 26.3 %; Mean Corpuscular HGB Conc 33.6 g/dL (30-55); Mean Corpuscular Hemoglobin 33.6 pg (27-33); Mean Platelet Volume 10.1 fL (7.4-10.4); Monocytes # 0.7 10^3/uL (0.2-0.9); Monocytes % 11.1 %; Neutrophils % 56.8 %; Nucleated Red Blood Cells % 0 %; Platelet Count 223 10^3/cmm (157-399); Red Blood Count 2.83 10^6/uL (3.85-5.65); Red Cell Distribution Width 13.5 % (12.1-15.1); White Blood Count 6.69 10^3/uL (3.29-11.43)
[2024-04-02 05:55] LABS: Albumin Level 3.4 g/dL (3.5-5.2); Alkaline Phosphatase 91 U/L (40-130); Anion Gap 13.7 (5-19); Aspartate Amino Transferase 17 U/L (0-40); Blood Urea Nitrogen 32 mg/dL (6-20); Calcium 8.1 mg/dL (8.5-10.5); Carbon Dioxide 27 mmol/L (22-29); Chloride 106 mmol/L (98-107); Creatinine Clr Calc Pharmacy 19.8281; Globulin 2.2 g/dL (1.3-4.6); Glomerular Filtration Rate 13.7 mL/min (90-130); Glucose 150 mg/dL (65-115); Magnesium 1.5 mg/dL (1.7-2.3); Osmolality Calculated 304 mOsm/kg (285-295); Potassium 4.7 mmol/L (3.5-5.1); Sodium 142 mmol/L (136-145); Total Bilirubin 0.4 mg/dL (0.15-1.2); Total Protein 5.6 g/dL (6.6-8.7)
[2024-04-02 06:09] LABS: Alanine Aminotransferase 11 U/L (0-41)
[2024-04-02] MEDS: levothyroxine 88 mcg Tablet PO (06:21)
[2024-04-02] MEDS: buPROPion XL (24 HR) 300 mg Tablet PO (06:21)
[2024-04-02] MEDS: atorvastatin 40 mg Tablet PO (06:21)
[2024-04-02] MEDS: fluoxetine 20 mg Capsule 40 MG PO (06:21)
[2024-04-02 06:23] LABS: Glucose Point of Care 174 mg/dL (70-110)
--- NOTE | 2024-04-02 07:54 | P.PN_ITS ---
Subjective 2 Subjective: The patient was seen and examined. Complains of chest pain overnight. Has shortness of breath has edema and has nausea. Medications: Reviewed: Yes Medication Review Details: Current Medications Acetaminophen (Acetaminophen 325 Mg Tablet) 650 mg PO Q6H PRN PRN Reason: Mild/Mod Pain Or Temp >/= 101 Last Admin: 03/31/24 17:02 Dose: 650 mg Apixaban (Apixaban 5 Mg Tablet) 2.5 mg PO BID@0900,2100 [facility] Last Admin: 04/01/24 20:34 Dose: 2.5 mg Aspirin (Aspirin 81 Mg Ec Tablet) 81 mg PO DAILY [facility] Last Admin: 04/01/24 09:09 Dose: 81 mg Atorvastatin Calcium (Atorvastatin 40 Mg Tablet) [facility] [place] Admin: 04/02/24 06:21 Dose: 40 mg Bumetanide (Bumetanide 1 Mg Tablet) 1 mg PO BID [facility] Last Admin: 04/01/24 17:50 Dose: 1 mg Bupropion HCl (Bupropion Xl (24 Hr) 300 Mg Tablet) [facility] [place] Last Admin: 04/02/24 06:21 Dose: 300 mg Buspirone HCl (Buspirone 10 Mg Tablet) 10 mg PO BID [facility] Last Admin: 04/01/24 17:50 Dose: 10 mg Clopidogrel Bisulfate (Clopidogrel 75 Mg Tablet) 75 mg PO DAILY [facility] Last Admin: 04/01/24 09:10 Dose: 75 mg Colchicine (Colchicine 0.6 Mg Tablet) 0.3 mg PO DAILY [facility] Fluoxetine HCl (Fluoxetine 20 Mg Capsule) 40 [facility] [place] Last Admin: 04/02/24 06:21 Dose: 40 mg Gabapentin (Gabapentin 100 Mg Capsule) 100 mg PO BID [facility] Last Admin: 04/01/24 17:50 Dose: 100 mg Glucagon (Glucagon 1 Mg/Ml Kit 1 Ml) 1 mg IM ONCE PRN; Protocol PRN Reason: Adult Acute Hypoglycemia Nursing Prot. Dextrose (D5w) 500 mls @ 0 mls/hr IV ONCE PRN; Protocol PRN Reason: Adult Acute Hypoglycemia Prot Dextrose (D10w) 125 mls @ 750 mls/hr IV PRN PRN; Protocol PRN Reason: Adult Acute Hypoglycemia Nursing Protocol Dextrose (D10w) 250 mls @ 1,000 mls/hr IV PRN PRN; Protocol PRN Reason: Adult Acute Hypoglycemia Nursing Protocol Epoetin Dontrell 5,000 unit/ N/A 0.25 mls @ 0 mls/hr [facility] DIALYSIS [facility] Insulin Human Lispro (Insulin Lispro 100 Unit/1 Ml) 0 unit SUBCUT WM&BEDTIME [facility]; Protocol Last Admin: 04/01/24 21:34 Dose: 4 unit Isosorbide Mononitrate (Isosorbide Mononitrate Er 30 Mg Tablet) 30 mg PO DAILY [facility] Last Admin: 04/01/24 09:10 Dose: 30 mg Levothyroxine Sodium (Levothyroxine 88 Mcg Tablet) 88 mcg PO QAM [facility] Last Admin: 04/02/24 06:21 Dose: 88 mcg Metoprolol Succinate (Metoprolol Succinate Er (24 Hr) 25 Mg Tablet) 12.5 mg PO DAILY [facility] Morphine Sulfate (Morphine 4 Mg/Ml Sdv 1 Ml) 2 mg IVP Q4H PRN PRN Reason: SEVERE PAIN Last Admin: 04/02/24 06:20 Dose: 2 mg Pantoprazole Sodium (Pantoprazole Dr 40 Mg Tablet) 40 mg PO DAILY [facility] Last Admin: 04/01/24 09:09 Dose: 40 mg Ranolazine (Ranolazine (12hr) 500 Mg Tablet) 500 mg PO BID [facility] Last Admin: 04/01/24 17:50 Dose: 500 mg Tamsulosin HCl (Tamsulosin 0.4 Mg Capsule) 0.4 mg PO DAILY [facility] Last Admin: 04/01/24 09:09 Dose: 0.4 mg Tizanidine HCl (Tizanidine 4 Mg Tablet) 2 mg PO BID [facility] Last Admin: 04/01/24 20:34 Dose: 2 mg Trazodone HCl (Trazodone 100 Mg Tablet) 400 mg PO BEDTIME PRN PRN Reason: INSOMNIA Last Admin: 04/01/24 00:01 Dose: 400 mg Vitals/I&O/Wt Last Vital Signs Temp 97.6 F 04/02/24 04:00 Pulse 70 04/02/24 04:00 Resp 18 04/02/24 06:20 BP 121/55 04/02/24 04:00 Pulse Ox 94 04/02/24 04:00 O2 Del Method Nasal Cannula 04/02/24 04:00 O2 Flow Rate 96 04/01/24 11:15 04/01/24 04/02/24 04/02/24 22:59 06:59 14:59 Intake Total 240 / 806.233 Balance 240 / 806.233 Weight last 48 hrs Weight 96.7 kg Weight 100.97 kg Weight 101.4 kg Weight 98.43 kg Physical Exam 2 Narrative: Obese man uncomfortable in bed, no apparent resp distress. Vital signs noted and stable. HEENT normocephalic atraumatic. Neck is supple. Lungs dullness at the bases and crackles. Heart regular with systolic murmur positive S1-S2. Abdomen is soft positive bowel sounds. Extremities 1+ edema. Left upper extremity AV fistula with thrill and bruit. Neuro awake alert oriented x 3. Data 04/02/24 05:23 04/02/24 05:23 A&P Assessment and plan (1) ESRD (end stage renal disease): 53-year-old gentleman ESRD CAD, History of pulm embolism, diabetes mellitus., hypothyroidism hyperlipidemia, and peripheral vascular disease, hypertension and anxiety. Patient had a recent cardiac catheterization with in-stent stenosis and had 2 angioplasties performed. The patient is now back with chest pain. Patient was evaluated by cardiology. He was started on colchicine. Given that he is ESRD, decreased colchicine to 0.3 mg d Patient for dialysis today. May use heparin. monitor avf and try to remove permacath soon. 2. Anemia can use low-dose Epogen trying to keep hemoglobin under 10.5. 3. Blood pressure stable. 4. Chest pain as per cardiology. I decreased cochicine. however, if cardiology needs to give a higher dose then please speak with pharmacology to ensure that it is safe. Consider giving steroids. Will follow the patient along with you. The patient was seen and examined using audiovisual equipment with the aid of a nurse. The patient consented to telehealth visit and to dialysis. Plan See above. Attestations 2 Medical Necessity Statement*: per medicine Time Spent in Patient Care: 16 - 35 minutes (>than 50% of time sp ent in counselling and/or direct pt care on unit) . Coding Level of Care Code Acute Code for Chg Fwd Diagnoses ESRD (end stage renal disease) N18.6
[2024-04-02] MEDS: isosorbide mononitrate ER 30 mg Tablet PO (09:15)
[2024-04-02] MEDS: gabapentin 100 mg Capsule PO ×2 (09:15→17:18)
[2024-04-02] MEDS: tamsulosin 0.4 mg Capsule PO (09:15)
[2024-04-02] MEDS: BuSPIRONE 10 mg Tablet PO ×2 (09:16→17:18)
[2024-04-02] MEDS: ranolazine (12HR) 500 mg Tablet PO ×2 (09:16→17:18)
[2024-04-02] MEDS: pantoprazole DR 40 mg Tablet PO (09:16)
[2024-04-02] MEDS: tizanidine 4 mg Tablet 2 MG PO ×2 (09:16→17:18)
[2024-04-02] MEDS: metoprolol succinate ER (24 HR) 25 mg Tablet 12.5 MG PO (09:16)
[2024-04-02] MEDS: aspirin 81 mg EC Tablet PO (09:16)
[2024-04-02] MEDS: clopidogrel 75 mg Tablet PO (09:17)
[2024-04-02] MEDS: apixaban 5 mg Tablet 2.5 MG PO ×2 (09:17→21:23)
[2024-04-02] MEDS: insulin lispro 100 unit/1 mL SUBCUT ×3 (09:17→21:23)
--- NOTE | 2024-04-02 09:17 | P.PN_ITS ---
Subjective 2 Subjective: Reports in the evening, he had some chest discomfort, and dizziness. Some of it correlated together, when he was having a bowel movement. He states his chest discomfort currently is still about a 2. Nephrology has seen, and is in anticipating dialysis today. Medications: Reviewed: Yes Vitals/I&O/Wt Last Vital Signs Temp 98.0 F 04/02/24 07:27 Pulse 73 04/02/24 07:27 Resp 17 04/02/24 07:27 BP 151/80 04/02/24 07:27 Pulse Ox 93 04/02/24 07:27 O2 Del Method Room Air 04/02/24 07:27 O2 Flow Rate 96 04/01/24 11:15 04/01/24 04/02/24 04/02/24 22:59 06:59 14:59 Intake Total 240 / 806.233 120 / 120 Balance 240 / 806.233 120 / 120 Weight last 48 hrs Weight 96.7 kg Weight 100.97 kg Weight 101.4 kg Weight 98.43 kg Physical Exam 2 Narrative: General exam no distress, no arrhythmias overnight Neck is supple Cardiovascular regular rate and rhythm, no murmur, no S3 or S4, port noted left chest Lungs clear no wheezing or crackles Abdomen soft, positive bowel sounds. No obvious organomegaly Extremities no cyanosis clubbing or edema, cap refill brisk Data 04/02/24 05:23 04/02/24 05:23 A&P Assessment and plan (1) Chest pain: Patient presents with recurrent chest pain after angioplasty last week of his circumflex and RCA He reports he has been compliant with his Plavix and aspirin, but does skip dosing in the morning to take later at night on days of dialysis He has been compliant with his Eliquis, following his fistulogram he had Saturday of last week. Troponin trend was not concerning Cardiology consult appreciated Continue Eliquis, Imdur, statin, beta-zaira, ranolazine There is some concern that his chest discomfort might even be pericarditis, uremic. Colchicine was initiated. Dose was reduced by nephrology. Will discuss with cardiology plan regarding that today. Secondary to dizziness, check orthostatic blood pressures. Nifedipine had been discontinued. Bumex is discontinued currently.. Qualifiers: Chest pain type: unspecified Qualified Code(s): R07.9 - Chest pain, unspecified (2) Elevated troponin: Appears to be a type II elevation (3) ESRD (end stage renal disease): Receives hemodialysis services Appreciate nephrology consultation (4) 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 mellitus: Consistent carb diet Sliding scale insulin Plan Past history of PE. Continue Eliquis Attestations 2 Medical Necessity Statement*: At this point needs continued hospital stay secondary to persistent chest discomfort, with concern of pericarditis in this patient still requiring occasional narcotic dose for chest discomfort. Diagnoses Chest pain R07.9 Chest pain type: unspecified Elevated troponin R77.8 ESRD (end stage renal disease) N18.6 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 mellitus E11.42 Time Spent (min) 32
[2024-04-02] MEDS: colchicine 0.6 mg Tablet 0.3 MG PO (09:18)
[2024-04-02] MEDS: magnesium sulfate premix 1 GM/100 ML PIGGYBACK IV (09:18)
[2024-04-02 11:22] LABS: Glucose Point of Care 144 mg/dL (70-110)
--- NOTE | 2024-04-02 13:08 | USCV_ITS ---
eRi Queen Age: 53 Gender: M : 1970 Exam Date: 04/02/2024 21:03 Ordering Phys: Rojas Garcia MD Technologist: KAREN Exam Location: [facility] [place] Indication: check EF, persisten chest pain, hx CAD s/p stents, end-stage renal disease on dialysis. BP: 151 / 80 HR: 75 Rhythm: Sinus Technical Quality: Adequate MEASUREMENTS (Male / Female) Normal Values 2D ECHO LV Diastolic Diameter PLAX 5.2 cm 4.2 - 5.9 / 3.9 - 5.3 cm IVS Diastolic Thickness 1.2 cm 0.6 - 1.0 / 0.6 - 0.9 cm IVS Systolic Thickness 1.5 cm LVPW Diastolic Thickness 1.4 cm 0.6 - 1.0 / 0.6 - 0.9 cm LVPW Systolic Thickness 2.1 cm LVOT Diameter 1.9 cm LV Ejection Fraction 2D Teich 38.2 % LV Ejection Fraction MOD 4C 37.0 % LV Ejection Fraction MOD 2C 33.7 % LV Ejection Fraction 2C AL 32.9 % LA Diameter 5.4 cm Aorta at Sinotubular Diameter 3.3 cm IVC Diameter 1.4 cm M-MODE LA Ao Ratio MM 1.4 AV Cusp Separation MM 1.8 cm DOPPLER AV Peak Velocity 142.0 cm/s LVOT Peak Velocity 72.0 cm/s AV Area Cont Eq vti 1.4 cm squared AV Area Cont Eq pk 1.4 cm squared MV Peak Velocity 107.0 cm/s MV Area PHT 4.2 cm squared Mitral E to A Ratio 0.8 TV Peak E Velocity 72.0 cm/s PV Peak Velocity 106.0 cm/s FINDINGS Left Ventricle Mildly increased left ventricular cavity size. Moderately decreased left ventricular systolic function. Left ventricular ejection fraction is estimated at 40 %. There appeared to be mid to distal anterior wall and apical hypokinesis.Grade I/IV diastolic dysfunction (abnormal relaxation filling pattern), normal to mildly elevated filling pressures. Right Ventricle The right ventricle is normal in size and function. Right Atrium The right atrium is normal in size. Left Atrium Moderately increased left atrial size. Mitral Valve Moderate mitral annular calcification. Moderately thickened mitral valve. Mild mitral valve regurgitation. Aortic Valve Severe aortic valve calcification. Mild aortic valve stenosis, mean gradient 3.9 mmHg, JCARLOS 1.4 cm squared. No aortic valve regurgitation. Tricuspid Valve Structurally normal tricuspid valve without significant stenosis or regurgitation. Pulmonary artery systolic pressure is normal. Pulmonic Valve Trace pulmonary valve regurgitation. Pericardium Normal pericardium without effusion. Aorta Normal ascending aorta dimension. IVC The inferior vena cava appears normal. CONCLUSIONS Mildly increased left ventricular cavity size. Moderately decreased left ventricular systolic function. Left ventricular ejection fraction is estimated at 40 %. There appeared to be mid to distal anterior wall and apical hypokinesis.Grade I/IV diastolic dysfunction (abnormal relaxation filling pattern), normal to mildly elevated filling pressures. Moderately increased left atrial size. Moderate mitral annular calcification. Moderately thickened mitral valve. Mild mitral valve regurgitation. Severe aortic valve calcification. Mild aortic valve stenosis, mean gradient 3.9 mmHg, JCARLOS 1.4 cm squared. No aortic valve regurgitation. There is no pericardial effusion. Right atrial pressure is around 20 mm of mercury. Rosi Vee MD (Electronically Signed) Final Date: 04 April 2024 15:51 S
[2024-04-02] MEDS: predniSONE 20 mg Tablet 40 MG PO (13:16)
[2024-04-02] MEDS: LORazepam 2 mg/mL INJ 1 mL 0.25 MG IVP (13:17)
--- NOTE | 2024-04-02 15:21 | P.PN_ITS ---
Documented by User: Ellen Boucher NP 04/02/24 15:36 Subjective 2 Subjective: Patient has had episode of dizziness with low blood pressure. He is orthostatic. Medication adjustments have been made. He still continues to have continuous chest pain and pressure that worsens with dialysis. He is not able to finish his dialysis sessions because of this. Medications: Reviewed: Yes Vitals/I&O/Wt Last Vital Signs Temp 98.2 F 04/02/24 12:21 Pulse 69 04/02/24 12:21 Resp 16 04/02/24 12:21 BP 131/56 04/02/24 12:21 Pulse Ox 97 04/02/24 11:50 O2 Del Method Room Air 04/02/24 11:50 O2 Flow Rate 96 04/01/24 11:15 04/02/24 04/02/24 04/02/24 06:59 14:59 22:59 Intake Total 460 / 460 Balance 460 / 460 Weight last 48 hrs Weight 213 lb 3 oz Weight 222 lb 9.6 oz Physical Exam 2 Narrative: General: No apparent distress, healthy appearing, well nourished Muskuloskeletal: Full ROM Lymphatic: no lymphedema noted Respiratory: Normal respiratory effort, clear to auscultation bilaterally throughout all lung [place], no use of accessory muscles Cardio: No JVD, regular rate, regular rhythm, S1 S2 normal, no murmurs, peripheral pulses 2+ throughout GI: Normal to inspection, nondistended Extremities: Full ROM, normal, normal capillary refill, no cyanosis or edema Neuro: Alert and oriented x4, no focal motor deficits Psych: Affect normal, denies suicidal ideation, mental status grossly normal Skin: No rashes or lesions noted, no wounds Data 04/03/24 05:35 04/03/24 05:35 A&P Assessment and plan (1) Pericarditis: Patient may have pericarditis component in the chest pain. will continue colchicine. steroid is being added today as well by primary. We appreciate their assistance. Continue rest of medications and pain control. Qualifiers: Chronicity: acute Pericarditis type: unspecified type Qualified Code(s): I30.9 - Acute pericarditis, unspecified (2) Chest pain: Patient states he continues to have chest pain. We had started him on colchicine for possible post NSTEMI pericarditis. Will continue this. Dose has been reduced per nephrology. We appreciate their assistance. Continue Ranexa. Will avoid increasing dose at this time due to underlying renal disease. Qualifiers: Chest pain type: unspecified Qualified Code(s): R07.9 - Chest pain, unspecified (3) Non-ST elevation (NSTEMI) myocardial infarction: Status post balloon angioplasty of the proximal RCA and distal circumflex for severe in-stent restenosis. Excellent angiographic result MEGHANA-3 flow was noted. Continue aspirin Plavix. Patient has been compliant with medication. (4) Essential hypertension: Well-controlled continue medicine (5) ESRD (end stage renal disease): Patient receiving dialysis (6) Contrast media allergy: No heart cath needed at this time, but if contrast is needed he will need Benadryl and steroids Plan Patient is having ongoing chest pain. Troponins are chronically elevated. Delta was negative. No acute EKG changes. Continue aspirin and Plavix. Will continue colchicine to decrease inflammation. Steroids are being added. Hopefully, we will see some improvement in the patient's symptoms after this. We had a discussion with the patient about his chest pains. He has had several stents placed in the past. There are no further interventions necessary for his previous lesions at this time due to risk of severe narrowing of the vessel with multiple stenting, among other risk factors of renal insufficiency the risks do not outweigh the benefits in this situation. We will continue to try to treat medically. Hopefully with the steroids, we will see some improvement. Will re- evaluate and assess the situation tomorrow. Continue to monitor for worsening s/s of chest pain. Attestations 2 Medical Necessity Statement*: Deferred to primary. Coding Level of Care Code Acute Code for [facility] Diagnoses Acute pericarditis, unspecified type I30.9 Chronicity: acute Pericarditis type: unspecified type Chest pain R07.9 Chest pain type: unspecified Non-ST elevation (NSTEMI) myocardial infarction I21.4 Essential hypertension I10 ESRD (end stage renal disease) N18.6 Contrast media allergy Z91.041 Documented by User: Rosi Vee MD 04/03/24 16:33 Subjective 2 Subjective: Patient was evaluated and cared for in conjunction with an advanced practice practitioner. I personally examined the patient and reviewed the chart and all pertinent data including imaging, telemetry, and laboratory results. I discussed the patient in detail with the advanced practice practitioner. Please see their note for complete H&P testing result and agreed upon plan of care for the patient. Patient still has off-and-on chest pain GENERAL: Patient is alert, awake and oriented x3. HEART: Regular S1 and S2. No murmur, rub or gallop. LUNGS: Clear to auscultate bilaterally. CENTRAL NERVOUS SYSTEM: Grossly nonfocal. EXTREMITIES: Lower extremities with out edema bilaterally. Assessment and plan Ischemic cardiomyopathy Chest pain suggestive of pericarditis Hypotension orthostasis Beta-zaira was backed off continue colchicine Consider steroid or indocid if okay with nephrology Continue dual antiplatelet therapy for ischemic heart disease and prior stents and recent angioplasties From a cardiovascular perspective patient can be discharged Patient has had episode of dizziness with low blood pressure. He is orthostatic. Medication adjustments have been made. He still continues to have continuous chest pain and pressure that worsens with dialysis. He is not able to finish his dialysis sessions because of this. Data 04/03/24 05:35 04/03/24 05:35 A&P Assessment and plan (1) Pericarditis: Qualifiers: Chronicity: acute Pericarditis type: unspecified type Qualified Code(s): I30.9 - Acute pericarditis, unspecified (2) Chest pain: Qualifiers: Chest pain type: unspecified Qualified Code(s): R07.9 - Chest pain, unspecified (3) Non-ST elevation (NSTEMI) myocardial infarction: (4) Essential hypertension: (5) ESRD (end stage renal disease): (6) Contrast media allergy: Coding Level of Care Code Acute Code for [facility] Diagnoses Acute pericarditis, unspecified type I30.9 Chronicity: acute Pericarditis type: unspecified type Chest pain R07.9 Chest pain type: unspecified Non-ST elevation (NSTEMI) myocardial infarction I21.4 Essential hypertension I10 ESRD (end stage renal disease) N18.6 Contrast media allergy Z91.041
--- NOTE | 2024-04-02 16:10 | PC.HD ---
Patient signed off dialysis treatment AMA with 50 minutes remaining due to discomfort and chest pain. 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
[2024-04-02 16:53] LABS: Glucose Point of Care 246 mg/dL (70-110)
[2024-04-02 20:32] LABS: Glucose Point of Care 260 mg/dL (70-110)
[2024-04-02] MEDS: trazodone 100 mg Tablet 200 MG PO (21:35)
[2024-04-03] VITALS (10 sets, daily range): BP systolic 102–162; BP diastolic 44–88; PULSE 76–95; RESP 16–18; TEMP 36.3–36.9; O2SAT 91–95
[2024-04-03] MEDS: morphine 4 mg/mL SDV 1 mL 2 MG IVP ×2 (01:48→05:34)
[2024-04-03] MEDS: atorvastatin 40 mg Tablet PO (05:33)
[2024-04-03] MEDS: buPROPion XL (24 HR) 300 mg Tablet PO (05:33)
[2024-04-03] MEDS: fluoxetine 20 mg Capsule 40 MG PO (05:34)
[2024-04-03] MEDS: levothyroxine 88 mcg Tablet PO (05:34)
[2024-04-03 05:51] LABS: Basophils % 0.1 %; Hematocrit 29.3 % (37-53); Lymphocytes # 0.6 10^3/uL (0.8-4.8); Lymphocytes % 8.9 %; Mean Corpuscular HGB Conc 33.8 g/dL (30-55); Mean Corpuscular Hemoglobin 33.7 pg (27-33); Mean Corpuscular Volume 99.7 fl (82-101); Mean Platelet Volume 9.9 fL (7.4-10.4); Monocytes # 0.4 10^3/uL (0.2-0.9); Monocytes % 5.6 %; Neutrophils # 5.86 10^3/uL (1.8-7.7); Neutrophils % 83.8 %; Nucleated Red Blood Cells % 0 %; Platelet Count 221 10^3/cmm (157-399); Red Blood Count 2.94 10^6/uL (3.85-5.65); Red Cell Distribution Width 13.1 % (12.1-15.1); White Blood Count 6.99 10^3/uL (3.29-11.43)
[2024-04-03 06:13] LABS: Alanine Aminotransferase 12 U/L (0-41); Albumin Level 3.6 g/dL (3.5-5.2); Alkaline Phosphatase 93 U/L (40-130); Anion Gap 13.1 (5-19); Aspartate Amino Transferase 11 U/L (0-40); Blood Urea Nitrogen 27 mg/dL (6-20); Carbon Dioxide 27 mmol/L (22-29); Chloride 100 mmol/L (98-107); Creatinine Clr Calc Pharmacy 30.1986; Globulin 2.4 g/dL (1.3-4.6); Glomerular Filtration Rate 21.8 mL/min (90-130); Glucose 263 mg/dL (65-115); Magnesium 1.5 mg/dL (1.7-2.3); Osmolality Calculated 294 mOsm/kg (285-295); Potassium 5.1 mmol/L (3.5-5.1); Sodium 135 mmol/L (136-145); Total Bilirubin 0.4 mg/dL (0.15-1.2)
[2024-04-03 06:36] LABS: Glucose Point of Care 246 mg/dL (70-110)
[2024-04-03] MEDS: tamsulosin 0.4 mg Capsule PO (08:44)
[2024-04-03] MEDS: ranolazine (12HR) 500 mg Tablet PO ×2 (08:44→17:07)
[2024-04-03] MEDS: colchicine 0.6 mg Tablet 0.3 MG PO (08:45)
[2024-04-03] MEDS: pantoprazole DR 40 mg Tablet PO (08:45)
[2024-04-03] MEDS: clopidogrel 75 mg Tablet PO (08:45)
[2024-04-03] MEDS: predniSONE 20 mg Tablet 40 MG PO (08:45)
[2024-04-03] MEDS: sennosides-docusate Tablet 2 TAB PO ×2 (08:45→17:07)
[2024-04-03] MEDS: tizanidine 4 mg Tablet 2 MG PO ×2 (08:46→17:07)
[2024-04-03] MEDS: isosorbide mononitrate ER 30 mg Tablet PO (08:46)
[2024-04-03] MEDS: gabapentin 100 mg Capsule PO ×2 (08:46→17:07)
[2024-04-03] MEDS: promethazine 25 mg Tablet PO ×3 (08:46→20:21)
[2024-04-03] MEDS: BuSPIRONE 10 mg Tablet PO ×2 (08:46→17:07)
[2024-04-03] MEDS: aspirin 81 mg EC Tablet PO (08:46)
[2024-04-03] MEDS: metoprolol succinate ER (24 HR) 25 mg Tablet 12.5 MG PO (08:46)
[2024-04-03] MEDS: insulin lispro 100 unit/1 mL SUBCUT ×4 (08:47→22:33)
[2024-04-03] MEDS: magnesium sulfate premix 1 GM/100 ML PIGGYBACK IV (08:47)
[2024-04-03] MEDS: apixaban 5 mg Tablet 2.5 MG PO ×2 (08:51→20:21)
[2024-04-03] MEDS: HYDROcodone-acetaminophen 5-325 mg Tablet 1 TAB PO ×3 (08:51→17:08)
--- NOTE | 2024-04-03 09:31 | PC.CHAP ---
Pastoral Care Encounter/Spiritual Assessment Type of Contact [] Declined pastry artist visit [] Patient/Family/Request visit [] Outpatient visit [] Follow-up visit [] Physician referral [] Code/Alert [] Routine visit [] Staff referral [] Actively dying [] Patient sleeping [] Family support [] [] Out of room [] Palliative care [] [X] Receiving care in room [] Pre-surgical visit [] Trauma [] Long length of stay [] ICU visit [] Other: Relational/Emotional Strength [] Patient feels connected with others/family/visitors/staff [] Distress [] Loneliness/isolation [] Abandonment Spirituality of Patient [] Person of Shannon [] Attends Islam of their [place] [] Believes in Prayer [] Reads Bible or Restoration materials [] There are Spiritual issues to be addressed Long Term Care Administrator Interventions [] Prayer [] Active listening [] Non-anxious presence [] Spiritual/emotional support [] Crisis/trauma care [] Spiritual counseling [] Bereavement support [] Provided bereavement packet [] Provided Bible/devotional materials [] Provided toy/stuffed animal, coloring book to patient or family member [] Provided Communion [] Anointing/[place] [] Salvation [] Completed spiritual assessment [] Other: Impact on Illness or Injury [] Angry [] Fearful [] Anxious [] Often cries [] Exhaustion [] Unable to work [] Unable to attend pentecostalism [] Unable to walk/stand [] Unable to read [] Unable to drive [] Unable to eat/drink [] Unable to sleep [] Unable to be with family [] Patient intubated [] Other: Summary Time spent with patient
--- NOTE | 2024-04-03 09:48 | P.PN_ITS ---
Subjective 2 Subjective: Rei reports he still having chest discomfort. He rates it about a 4. He still states he feels woozy, especially when getting up. He does not think this is improved much. Orthostatic blood pressures have improved. Medications: Reviewed: Yes Vitals/I&O/Wt Last Vital Signs Temp 97.9 F 04/03/24 07:18 Pulse 84 04/03/24 07:18 Resp 16 04/03/24 07:18 BP 162/66 04/03/24 07:18 Pulse Ox 91 04/03/24 07:18 O2 Del Method Room Air 04/03/24 07:18 O2 Flow Rate 96 04/01/24 11:15 04/02/24 04/03/24 04/03/24 22:59 06:59 14:59 Intake Total 980 / 1440 440 / 1880 220 / 220 Output Total 1195 / 1195 Balance -215 / 245 440 / 685 220 / 220 Weight last 48 hrs Weight 100.335 kg Weight 99.6 kg Weight 96.7 kg Physical Exam 2 Narrative: General exam no distress, no arrhythmias overnight Neck is supple Cardiovascular regular rate and rhythm, no murmur, no S3 or S4, port noted left chest Lungs clear no wheezing or crackles Abdomen soft, positive bowel sounds. No obvious organomegaly Extremities no cyanosis clubbing or edema, cap refill brisk Data 04/03/24 05:35 04/03/24 05:35 A&P Assessment and plan (1) Chest pain: Patient presents with recurrent chest pain after angioplasty last week of his circumflex and RCA He reports he has been compliant with his Plavix and aspirin, but does skip dosing in the morning to take later at night on days of dialysis He has been compliant with his Eliquis, following his fistulogram he had Saturday of last week. Troponin trend was not concerning Cardiology consult appreciated Continue Eliquis, Imdur, statin, beta-zaira, ranolazine There is some concern that his chest discomfort might even be pericarditis, uremic. Colchicine was initiated. Prednisone added yesterday afternoon. Orthostatic blood pressures appear better, await readings today Nifedipine and diuretics currently discontinued. Patient has no significant edema. Hydrocodone added for pain Limited echocardiogram ordered and pending. Qualifiers: Chest pain type: unspecified Qualified Code(s): R07.9 - Chest pain, unspecified (2) Elevated troponin: Appears to be a type II elevation (3) ESRD (end stage renal disease): Receives hemodialysis services Appreciate nephrology consultation (4) 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 mellitus: Consistent carb diet Sliding scale insulin Plan Past history of PE. Continue Eliquis Attestations 2 Medical Necessity Statement*: Needs continued hospitalization secondary to persistent chest discomfort, failed to resolve in this patient with history of coronary artery disease with multiple in-stent stenosis in the past. Diagnoses Chest pain R07.9 Chest pain type: unspecified Elevated troponin R77.8 ESRD (end stage renal disease) N18.6 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 mellitus E11.42
--- NOTE | 2024-04-03 10:34 | PC.SOCIAL ---
IMM Update pg 2 of IMM Updated and reviewed w/ patient. Copy provided and copy dated, initialed and placed in chart.
[2024-04-03 11:05] LABS: Glucose Point of Care 345 mg/dL (70-110)
--- NOTE | 2024-04-03 11:17 | P.PN_ITS ---
Documented by User: Ellen Boucher NP 04/03/24 15:38 Subjective 2 Subjective: Patient states that his dizziness from sitting to standing has not improved much. He states that he had quite a bit of chest pain throughout the night. He is currently on prednisone with colchicine. He states that his pain is improved from transitioning to oral pain medications. Medications: Reviewed: Yes Vitals/I&O/Wt Last Vital Signs Temp 97.9 F 04/03/24 07:18 Pulse 80 04/03/24 08:00 Resp 16 04/03/24 07:18 BP 145/88 04/03/24 08:00 Pulse Ox 91 04/03/24 07:18 O2 Del Method Room Air 04/03/24 07:18 O2 Flow Rate 96 04/01/24 11:15 04/02/24 04/03/24 04/03/24 22:59 06:59 14:59 Intake Total 980 / 1440 440 / 1880 220 / 220 Output Total 1195 / 1195 Balance -215 / 245 440 / 685 220 / 220 Weight last 48 hrs Weight 221 lb 3.2 oz Weight 219 lb 9.286 oz Weight 213 lb 3 oz Physical Exam 2 Narrative: General: No apparent distress, healthy appearing, well nourished Muskuloskeletal: Full ROM Lymphatic: no lymphedema noted Respiratory: Normal respiratory effort, clear to auscultation bilaterally throughout all lung [place], no use of accessory muscles Cardio: No JVD, regular rate, regular rhythm, S1 S2 normal, no murmurs, peripheral pulses 2+ throughout Extremities: Full ROM, normal, normal capillary refill, no cyanosis or edema Neuro: Alert and oriented x4, no focal motor deficits Psych: Affect normal, denies suicidal ideation, mental status grossly normal Skin: No rashes or lesions noted, no wounds Data 04/03/24 05:35 04/03/24 05:35 A&P Assessment and plan (1) Pericarditis: Patient may have pericarditis component in the chest pain. will continue colchicine. steroid has been added. Morphine has been transitioned to oral pain control. Qualifiers: Chronicity: acute Pericarditis type: unspecified type Qualified Code(s): I30.9 - Acute pericarditis, unspecified (2) Chest pain: Patient states he continues to have chest pain. We had started him on colchicine for possible post NSTEMI pericarditis. Will continue this. Dose has been reduced per nephrology. We appreciate their assistance. Continue Ranexa. Qualifiers: Chest pain type: unspecified Qualified Code(s): R07.9 - Chest pain, unspecified (3) Non-ST elevation (NSTEMI) myocardial infarction: Status post balloon angioplasty of the proximal RCA and distal circumflex for severe in-stent restenosis. Excellent angiographic result MEGHANA-3 flow was noted. Continue aspirin Plavix. Patient has been compliant with medication. (4) Essential hypertension: Well-controlled continue medicine (5) ESRD (end stage renal disease): Patient receiving dialysis (6) Contrast media allergy: No heart cath needed at this time, but if contrast is needed he will need Benadryl and steroids Plan Patient is having ongoing chest pain. Troponins are chronically elevated. Delta was negative. No acute EKG changes. Continue aspirin and Plavix. Will continue colchicine and steroids for inflammation. Hopefully, we will see some improvement in the patient's symptoms after this. This may take time. As before, there are no further interventions available for his previous lesions at this time due to risk of severe narrowing of the vessel with multiple stenting, among other risk factors of renal insufficiency the risks do not outweigh the benefits in this situation. We will continue to try to treat medically. Will continue to re-evaluate and assess the situation. Continue to monitor for worsening s/s of chest pain. We did discuss this with his . At this time, patient may be discharged from a cardiac standpoint. Attestations 2 Medical Necessity Statement*: Patient may be discharged from cardiac standpoint. Coding Level of Care Code Acute Code for [facility] Diagnoses Acute pericarditis, unspecified type I30.9 Chronicity: acute Pericarditis type: unspecified type Chest pain R07.9 Chest pain type: unspecified Non-ST elevation (NSTEMI) myocardial infarction I21.4 Essential hypertension I10 ESRD (end stage renal disease) N18.6 Contrast media allergy Z91.041 Documented by User: Rosi Vee MD 04/03/24 16:43 Subjective 2 Subjective: Patient was evaluated and cared for in conjunction with an advanced practice practitioner. I personally examined the patient and reviewed the chart and all pertinent data including imaging, telemetry, and laboratory results. I discussed the patient in detail with the advanced practice practitioner. Please see their note for complete H&P testing result and agreed upon plan of care for the patient. Today patient sitting on the chair denies any complaint except had episodes of nonspecific atypical chest pressure overnight GENERAL: Patient is alert, awake and oriented x3. HEART: Regular S1 and S2. No murmur, rub or gallop. LUNGS: Clear to auscultate bilaterally. CENTRAL NERVOUS SYSTEM: Grossly nonfocal. EXTREMITIES: Lower extremities with out edema bilaterally. Assessment and plan Ischemic cardiomyopathy Atypical chest could be pericarditis Orthostatic hypotension Chronic kidney disease on hemodialysis Patient chest pain is atypical does not appear to be ischemic given in the face of ischemia patient is not a candidate for intervention due to already multiple layers of stents, operative weeks ago we performed balloon angioplasty of the RCA and circumflex stents with excellent angiographic result, I do not think that patient has any residual significant ischemia however cannot rule out small vessel disease therefore he is on Ranexa. Uremic pericarditis is a consideration for which we can try Indocin or steroids depending upon which is more susceptible to nephrology. I have detailed discussion with the patient and his today. He is on maximal optimal medical regimen given his state and condition of blood pressure and heart failure. I would therefore discussed that he may can be discharged home patient would like to spend more and more day recently he has been started on narcotic analgesics by our medicine colleagues, he thinks that he is feeling much better. I will defer the decision of discharge pertaining to his other medical problem to our nephrology and medicine colleagues from a cardiovascular perspective patient can be discharged today or tomorrow. For now we will sign off. Patient states that his dizziness from sitting to standing has not improved much. He states that he had quite a bit of chest pain throughout the night. He is currently on prednisone with colchicine. He states that his pain is improved from transitioning to oral pain medications. Data 04/03/24 05:35 04/03/24 05:35 A&P Assessment and plan (1) Pericarditis: Qualifiers: Chronicity: acute Pericarditis type: unspecified type Qualified Code(s): I30.9 - Acute pericarditis, unspecified (2) Chest pain: Qualifiers: Chest pain type: unspecified Qualified Code(s): R07.9 - Chest pain, unspecified (3) Non-ST elevation (NSTEMI) myocardial infarction: (4) Essential hypertension: (5) ESRD (end stage renal disease): (6) Contrast media allergy: Coding Level of Care Code Acute Code for [facility] Diagnoses Acute pericarditis, unspecified type I30.9 Chronicity: acute Pericarditis type: unspecified type Chest pain R07.9 Chest pain type: unspecified Non-ST elevation (NSTEMI) myocardial infarction I21.4 Essential hypertension I10 ESRD (end stage renal disease) N18.6 Contrast media allergy Z91.041
[2024-04-03 16:58] LABS: Glucose Point of Care 252 mg/dL (70-110)
--- NOTE | 2024-04-03 17:40 | P.PN_ITS ---
Subjective 2 Subjective: no new complaints Medications: Reviewed: Yes Vitals/I&O/Wt Last Vital Signs Temp 97.9 F 04/03/24 15:15 Pulse 76 04/03/24 15:15 Resp 17 04/03/24 15:15 BP 146/76 04/03/24 15:15 Pulse Ox 94 04/03/24 15:15 O2 Del Method Room Air 04/03/24 15:15 O2 Flow Rate 96 04/01/24 11:15 04/03/24 04/03/24 04/03/24 06:59 14:59 22:59 Intake Total 440 / 1880 420 / 420 Balance 440 / 685 420 / 420 Weight last 48 hrs Weight 100.335 kg Weight 99.6 kg Weight 96.7 kg Physical Exam 2 Narrative: Obese man uncomfortable in bed, no apparent resp distress. Vital signs noted and stable. HEENT normocephalic atraumatic. Neck is supple. Lungs dullness at the bases and crackles. Heart regular with systolic murmur positive S1-S2. Abdomen is soft positive bowel sounds. Extremities 1+ edema. Left upper extremity AV fistula with thrill and bruit. Neuro awake alert oriented x 3. Data 04/03/24 05:35 04/03/24 05:35 A&P Assessment and plan (1) ESRD (end stage renal disease): 53-year-old gentleman ESRD CAD, History of pulm embolism, diabetes mellitus., hypothyroidism hyperlipidemia, and peripheral vascular disease, hypertension and anxiety. Patient had a recent cardiac catheterization with in-stent stenosis and had 2 angioplasties performed. The patient is now back with chest pain. Patient was evaluated by cardiology. He was started on colchicine. Given that he is ESRD, decreased colchicine to 0.3 mg d May use heparin. monitor avf and try to remove permacath soon. HD tomorrow 2. Anemia can use low-dose Epogen trying to keep hemoglobin under 10.5. 3. Blood pressure stable. 4. Chest pain as per cardiology. I decreased cochicine. however, if cardiology needs to give a higher dose then please speak with pharmacology to ensure that it is safe. Consider giving steroids. Will follow the patient along with you. The patient was seen and examined using audiovisual equipment with the aid of a nurse. The patient consented to telehealth visit and to dialysis. Plan See above. Attestations 2 Medical Necessity Statement*: per [place] Coding Level of Care Code Acute Code for [facility] Diagnoses ESRD (end stage renal disease) N18.6
[2024-04-03 21:03] LABS: Glucose Point of Care 328 mg/dL (70-110)
[2024-04-04] VITALS (8 sets, daily range): BP systolic 97–163; BP diastolic 49–84; PULSE 74–85; RESP 17–18; TEMP 36.4–36.9; O2SAT 92–93
[2024-04-04] MEDS: promethazine 25 mg Tablet PO ×4 (02:29→21:13)
[2024-04-04 03:05] LABS: Basophils % 0.1 %; Hematocrit 30.1 % (37-53); Lymphocytes # 0.8 10^3/uL (0.8-4.8); Lymphocytes % 5.9 %; Mean Corpuscular HGB Conc 32.9 g/dL (30-55); Mean Corpuscular Hemoglobin 33.7 pg (27-33); Mean Corpuscular Volume 102.4 fl (82-101); Mean Platelet Volume 10.2 fL (7.4-10.4); Monocytes # 0.7 10^3/uL (0.2-0.9); Monocytes % 5.4 %; Neutrophils # 11.19 10^3/uL (1.8-7.7); Neutrophils % 87.7 %; Nucleated Red Blood Cells % 0 %; Platelet Count 245 10^3/cmm (157-399); Red Blood Count 2.94 10^6/uL (3.85-5.65); Red Cell Distribution Width 13.1 % (12.1-15.1); White Blood Count 12.76 10^3/uL (3.29-11.43)
[2024-04-04 03:27] LABS: Alanine Aminotransferase 13 U/L (0-41); Albumin Level 3.6 g/dL (3.5-5.2); Alkaline Phosphatase 88 U/L (40-130); Anion Gap 15.2 (5-19); Aspartate Amino Transferase 13 U/L (0-40); Blood Urea Nitrogen 41 mg/dL (6-20); Calcium 9.1 mg/dL (8.5-10.5); Carbon Dioxide 25 mmol/L (22-29); Chloride 103 mmol/L (98-107); Creatinine Clr Calc Pharmacy 25.2619; Globulin 2.7 g/dL (1.3-4.6); Glomerular Filtration Rate 17.7 mL/min (90-130); Glucose 256 mg/dL (65-115); Magnesium 1.8 mg/dL (1.7-2.3); Osmolality Calculated 305 mOsm/kg (285-295); Potassium 5.2 mmol/L (3.5-5.1); Sodium 138 mmol/L (136-145); Total Bilirubin 0.3 mg/dL (0.15-1.2); Total Protein 6.3 g/dL (6.6-8.7)
[2024-04-04] MEDS: fluoxetine 20 mg Capsule 40 MG PO (05:02)
[2024-04-04] MEDS: buPROPion XL (24 HR) 300 mg Tablet PO (05:02)
[2024-04-04] MEDS: levothyroxine 88 mcg Tablet PO (05:02)
[2024-04-04] MEDS: atorvastatin 40 mg Tablet PO (05:02)
[2024-04-04 06:27] LABS: Glucose Point of Care 238 mg/dL (70-110)
[2024-04-04] MEDS: ranolazine (12HR) 500 mg Tablet PO ×2 (08:09→17:03)
[2024-04-04] MEDS: colchicine 0.6 mg Tablet 0.3 MG PO (08:09)
[2024-04-04] MEDS: tizanidine 4 mg Tablet 2 MG PO ×2 (08:10→17:03)
[2024-04-04] MEDS: pantoprazole DR 40 mg Tablet PO (08:10)
[2024-04-04] MEDS: apixaban 5 mg Tablet 2.5 MG PO ×2 (08:10→21:13)
[2024-04-04] MEDS: BuSPIRONE 10 mg Tablet PO ×2 (08:10→17:04)
[2024-04-04] MEDS: HYDROcodone-acetaminophen 5-325 mg Tablet 1 TAB PO ×4 (08:10→21:13)
[2024-04-04] MEDS: sennosides-docusate Tablet 2 TAB PO ×2 (08:10→17:03)
[2024-04-04] MEDS: insulin lispro 100 unit/1 mL SUBCUT ×3 (08:10→17:04)
[2024-04-04] MEDS: gabapentin 100 mg Capsule PO ×2 (08:11→17:03)
[2024-04-04] MEDS: aspirin 81 mg EC Tablet PO (08:11)
[2024-04-04] MEDS: tamsulosin 0.4 mg Capsule PO (08:11)
[2024-04-04] MEDS: predniSONE 20 mg Tablet 40 MG PO (08:11)
[2024-04-04] MEDS: clopidogrel 75 mg Tablet PO (08:11)
--- NOTE | 2024-04-04 09:50 | P.PN_ITS ---
Subjective 2 Subjective: getting HD Medications: Reviewed: Yes Vitals/I&O/Wt Last Vital Signs Temp 98.4 F 04/04/24 04:00 Pulse 80 04/04/24 04:00 Resp 17 04/04/24 04:00 BP 141/62 04/04/24 04:00 Pulse Ox 93 04/04/24 04:00 O2 Del Method Room Air 04/03/24 15:15 O2 Flow Rate 96 04/01/24 11:15 04/03/24 04/04/24 04/04/24 22:59 06:59 14:59 Intake Total 100 / 520 200 / 720 Balance 100 / 520 200 / 720 Weight last 48 hrs Weight 98.611 kg Weight 100.335 kg Weight 99.6 kg Physical Exam 2 Narrative: Obese man , no apparent resp distress. Vital signs noted and stable. HEENT normocephalic atraumatic. Neck is supple. Lungs dullness at the bases and crackles. Heart regular with systolic murmur positive S1-S2. Abdomen is soft positive bowel sounds. Extremities 1+ edema. Left upper extremity AV fistula with thrill and bruit. Neuro awake alert oriented x 3. Data 04/04/24 02:29 04/04/24 02:29 A&P Assessment and plan (1) ESRD (end stage renal disease): 53-year-old gentleman ESRD CAD, History of pulm embolism, diabetes mellitus., hypothyroidism hyperlipidemia, and peripheral vascular disease, hypertension and anxiety. Patient had a recent cardiac catheterization with in-stent stenosis and had 2 angioplasties performed. The patient is now back with chest pain. Patient was evaluated by cardiology. He was started on colchicine. Given that he is ESRD, decreased colchicine to 0.3 mg d May use heparin. monitor avf and try to remove permacath soon. HD today 2. Anemia can use low-dose Epogen trying to keep hemoglobin under 10.5. 3. Blood pressure stable. 4. Chest pain as per cardiology. I decreased cochicine. however, if cardiology needs to give a higher dose then please speak with pharmacology to ensure that it is safe. Consider giving steroids. Will follow the patient along with you. The patient was seen and examined using audiovisual equipment with the aid of a nurse. The patient consented to telehealth visit and to dialysis. Plan See above. Attestations 2 Medical Necessity Statement*: per [place] Coding Level of Care Code Acute Code for [facility] Diagnoses ESRD (end stage renal disease) N18.6
[2024-04-04 11:35] LABS: Glucose Point of Care 191 mg/dL (70-110)
--- NOTE | 2024-04-04 15:45 | PM.PN ---
Subjective Subjective: Received dialysis today. had orthostatic drop in blood pressure from 153 systolic while lying down to 111 upon standing. Patient reported dizziness with this change. Medications: Reviewed: Yes Medication Review Details: Current Medications Acetaminophen (Acetaminophen 325 Mg Tablet) 650 mg PO Q6H PRN PRN Reason: Mild/Mod Pain Or Temp >/= 101 Last Admin: 03/31/24 17:02 Dose: 650 mg Apixaban (Apixaban 5 Mg Tablet) 2.5 mg PO BID@0900,2100 [facility] Last Admin: 04/01/24 20:34 Dose: 2.5 mg Aspirin (Aspirin 81 Mg Ec Tablet) 81 mg PO DAILY [facility] Last Admin: 04/01/24 09:09 Dose: 81 mg Atorvastatin Calcium (At[facility]vastatin 40 Mg Tablet) [facility] Last Admin: 04/02/24 06:21 Dose: 40 mg Bumetanide (Bumetanide 1 Mg Tablet) 1 mg PO BID [facility] Last Admin: 04/01/24 17:50 Dose: 1 mg Bupropion HCl (Bupropion Xl (24 Hr) 300 Mg Tablet) [facility] Last Admin: 04/02/24 06:21 Dose: 300 mg Buspirone HCl (Buspirone 10 Mg Tablet) 10 mg PO BID [facility] Last Admin: 04/01/24 17:50 Dose: 10 mg Clopidogrel Bisulfate (Clopidogrel 75 Mg Tablet) 75 mg PO DAILY [facility] Last Admin: 04/01/24 09:10 Dose: 75 mg Colchicine (Colchicine 0.6 Mg Tablet) 0.3 mg PO DAILY [facility] Fluoxetine HCl (Fluoxetine 20 Mg Capsule) 40 [facility] Last Admin: 04/02/24 06:21 Dose: 40 mg Gabapentin (Gabapentin 100 Mg Capsule) 100 mg PO BID [facility] Last Admin: 04/01/24 17:50 Dose: 100 mg Glucagon (Glucagon 1 Mg/Ml Kit 1 Ml) 1 mg IM ONCE PRN; Protocol PRN Reason: Adult Acute Hypoglycemia Nursing Prot. Dextrose (D5w) 500 mls @ 0 mls/hr IV ONCE PRN; Protocol PRN Reason: Adult Acute Hypoglycemia Prot Dextrose (D10w) 125 mls @ 750 mls/hr IV PRN PRN; Protocol PRN Reason: Adult Acute Hypoglycemia Nursing Protocol Dextrose (D10w) 250 mls @ 1,000 mls/hr IV PRN PRN; Protocol PRN Reason: Adult Acute Hypoglycemia Nursing Protocol Epoetin Dontrell 5,000 unit/ N/A 0.25 mls @ 0 mls/hr HE DIALYSIS [facility] Insulin Human Lispro (Insulin Lispro 100 Unit/1 Ml) 0 unit SUBCUT WM&BEDTIME [facility]; Protocol Last Admin: 04/01/24 21:34 Dose: 4 unit Isosorbide Mononitrate (Isosorbide Mononitrate Er 30 Mg Tablet) 30 mg PO DAILY [facility] Last Admin: 04/01/24 09:10 Dose: 30 mg Levothyroxine Sodium (Levothyroxine 88 Mcg Tablet) 88 mcg PO QAM [facility] Last Admin: 04/02/24 06:21 Dose: 88 mcg Metoprolol Succinate (Metoprolol Succinate Er (24 Hr) 25 Mg Tablet) 12.5 mg PO DAILY [facility] Morphine Sulfate (Morphine 4 Mg/Ml Sdv 1 Ml) 2 mg IVP Q4H PRN PRN Reason: SEVERE PAIN Last Admin: 04/02/24 06:20 Dose: 2 mg Pantoprazole Sodium (Pantoprazole Dr 40 Mg Tablet) 40 mg PO DAILY [facility] Last Admin: 04/01/24 09:09 Dose: 40 mg Ranolazine (Ranolazine (12hr) 500 Mg Tablet) 500 mg PO BID [facility] Last Admin: 04/01/24 17:50 Dose: 500 mg Tamsulosin HCl (Tamsulosin 0.4 Mg Capsule) 0.4 mg PO DAILY [facility] Last Admin: 04/01/24 09:09 Dose: 0.4 mg Tizanidine HCl (Tizanidine 4 Mg Tablet) 2 mg PO BID [facility] Last Admin: 04/01/24 20:34 Dose: 2 mg Trazodone HCl (Trazodone 100 Mg Tablet) 400 mg PO BEDTIME PRN PRN Reason: INSOMNIA Last Admin: 04/01/24 00:01 Dose: 400 mg Vitals/I&O/Wt Last Vital Signs Temp 98.4 F 04/04/24 04:00 Pulse 78 04/04/24 13:24 Resp 17 04/04/24 04:00 BP 153/70 04/04/24 13:24 Pulse Ox 93 04/04/24 04:00 O2 Del Method Room Air 04/03/24 15:15 O2 Flow Rate 96 04/01/24 11:15 04/04/24 04/04/2404/04/24 06:59 14:59 22:59 Intake Total 200 / 720 Output Total 325 / 325 Balance 200 / 720 -325 / -325 Weight last 48 hrs Weight 98.611 kg Weight 100.335 kg Weight 99.6 kg Physical Exam Narrative: General: No acute distress, AO x3 HEENT: PERRLA, pupils bilaterally equal and reactive, pallors not present Chest: Normal vesicular breath sounds, no added sounds, equal good air entry bilaterally CVS: S1-S2 regular, no murmurs, no tachycardia, no gallops, no rubs Abdomen: Soft, nontender, no organomegaly, bowel sounds present Neuro: No focal deficits, no facial deformity, AO x3, power 5/5 in all limbs Data 04/04/24 02:29 04/04/24 02:29 A&P Assessment and plan (1) ESRD (end stage renal disease): Receives hemodialysis services Appreciate nephrology consultation (2) Chest pain: Patient presents with recurrent chest pain after angioplasty last week of his circumflex and RCA He reports he has been compliant with his Plavix and aspirin, but does skip dosing in the morning to take later at night on days of dialysis He has been compliant with his Eliquis, following his fistulogram he had Saturday of last week. Troponin trend was not concerning Cardiology consult appreciated Continue Eliquis, Imdur, statin, beta-zaira, ranolazine There is some concern that his chest discomfort might even be pericarditis, uremic. Colchicine was initiated. Prednisone added yesterday afternoon. Orthostatic blood pressures appear better, await readings today Nifedipine and diuretics currently discontinued. Patient has no significant edema. Hydrocodone added for pain Limited echocardiogram ordered and pending. Qualifiers: Chest pain type: unspecified Qualified Code(s): R07.9 - Chest pain, unspecified (3) Elevated troponin: Appears to be a type II elevation (4) 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 mellitus: Consistent carb diet Sliding scale insulin Plan Past history of PE. Continue Eliquis 04/04/2024. Patient received dialysis today. He was planning to be discharged afterwards on steroids, however he had an orthostatic drop associated with dizziness. Systolic blood pressure dropped from 1 53-1 11. Hold Imdur today. Continue low-dose metoprolol 12.5 mg p.o. daily and reassess. Once blood pressure stabilizes anticipate discharge home on colchicine and steroids. No other acute interim events. Attestations Medical Necessity Statement*: Continues to have orthostatic blood pressure. Titration of meds ongoing. Holding Imdur today. Coding Level of Care Code Acute Code for Chg Fwd Moderate MDM includes number and complexity of problems actively addressed during encounter, amount and/or complexity of data reviewed/ordered and described risk of complication, morbidity or mortality of management as documented Diagnoses ESRD (end stage renal disease) N18.6 Chest pain R07.9 Chest pain type: unspecified Elevated troponin R77.8 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 mellitus E11.42
[2024-04-04 16:12] LABS: Glucose Point of Care 407 mg/dL (70-110)
[2024-04-04 20:31] LABS: Glucose Point of Care 409 mg/dL (70-110)
[2024-04-04] MEDS: trazodone 100 mg Tablet 400 MG PO (21:16)
[2024-04-04] MEDS: insulin lispro 100 unit/1 mL 20 UNIT SUBCUT (21:47)
[2024-04-04 22:53] LABS: Glucose Point of Care 365 mg/dL (70-110)
[2024-04-05] VITALS (7 sets, daily range): BP systolic 130–178; BP diastolic 48–92; PULSE 76–79; RESP 16–18; TEMP 36.4–36.9; O2SAT 93–97
[2024-04-05] MEDS: promethazine 25 mg Tablet PO ×2 (01:32→08:59)
[2024-04-05] MEDS: HYDROcodone-acetaminophen 5-325 mg Tablet 1 TAB PO ×3 (01:32→10:44)
[2024-04-05] MEDS: levothyroxine 88 mcg Tablet PO (05:37)
[2024-04-05] MEDS: atorvastatin 40 mg Tablet PO (05:37)
[2024-04-05] MEDS: fluoxetine 20 mg Capsule 40 MG PO (05:38)
[2024-04-05] MEDS: buPROPion XL (24 HR) 300 mg Tablet PO (05:38)
[2024-04-05 06:33] LABS: Glucose Point of Care 286 mg/dL (70-110)
[2024-04-05] MEDS: ranolazine (12HR) 500 mg Tablet PO (08:58)
[2024-04-05] MEDS: gabapentin 100 mg Capsule PO (08:58)
[2024-04-05] MEDS: sennosides-docusate Tablet 2 TAB PO (08:59)
[2024-04-05] MEDS: clopidogrel 75 mg Tablet PO (08:59)
[2024-04-05] MEDS: predniSONE 20 mg Tablet 40 MG PO (08:59)
[2024-04-05] MEDS: apixaban 5 mg Tablet 2.5 MG PO (08:59)
[2024-04-05] MEDS: aspirin 81 mg EC Tablet PO (08:59)
[2024-04-05] MEDS: colchicine 0.6 mg Tablet 0.3 MG PO (08:59)
[2024-04-05] MEDS: pantoprazole DR 40 mg Tablet PO (09:00)
[2024-04-05] MEDS: BuSPIRONE 10 mg Tablet PO (09:00)
[2024-04-05] MEDS: tamsulosin 0.4 mg Capsule PO (09:00)
[2024-04-05] MEDS: tizanidine 4 mg Tablet 2 MG PO (09:00)
[2024-04-05] MEDS: metoprolol succinate ER (24 HR) 25 mg Tablet 12.5 MG PO (09:00)
[2024-04-05] MEDS: insulin lispro 100 unit/1 mL SUBCUT ×2 (09:01→12:22)
[2024-04-05 10:40] LABS: Glucose Point of Care 219 mg/dL (70-110)
[2024-04-05 11:34] LABS: Glucose Point of Care 189 mg/dL (70-110)
--- NOTE | 2024-04-05 14:42 | PM.DCS ---
Discharge Providers Date of Admission: 04/02/24 09:24 Date of Discharge: April 05, 2024 Attending Provider at Admission: Rojas Garcia MD Attending Provider at Discharge: Nancy Watson MD Primary Care Provider: Kp Montanez DO Diagnoses at Discharge Discharge Diagnosis (1) ESRD (end stage renal disease): Status: Acute (2) Chest pain: Status: Acute Qualifiers: Chest pain type: unspecified Qualified Code(s): R07.9 - Chest pain, unspecified (3) Elevated troponin: Status: Acute (4) 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 mellitus: Status: Acute Reason for Visit Reason for Visit: Chest pain Hospital Course Hospital Course 53-year-old male with end-stage renal disease on hemodialysis, coronary disease, chronic chest pain, diabetes presented with recurrent chest pain on 03/31/24.? He had just got angioplasty last week(CFx and RCA).? He was evaluated by cardiology during hospital admission. Troponin baseline was elevated at 102. This is chronically elevated most likely due to ESRF. Serial delta was negative. Patient's pain was worse on deep breathing laying flat and relieved bending forward appearing to be more likely from pericarditis. This was thought to be related to post NSTEMI vs uremic pericarditis. limited echo showed Left ventricular ejection fraction is estimated at 40 %. There appeared to be mid to distal anterior wall and apical hypokinesis. Mild aortic valve stenosis, mean gradient 3.9 mmHg, JCARLOS 1.4 cm squared. Cardiology recommended treatment with colchicine and steroids and was serially re evaluated during admission. With regards to his CAD, it was opined that chest pain is atypical does not appear to be ischemic. Patient was not considered a candidate for further intervention due to already multiple layers of stents, recent balloon angioplasty of the RCA and circumflex stents with excellent angiographic result. possibility of residual residual significant ischemia was considered less likely. For possible small vessel disease, he was on Ranexa. He is on optimal medical regimen for his CAD. He was overall considerd stable from a cardiac standpoint. Discussed with him that the pain of pericarditis would likely take a few weeks to resolve. He was noted to be orthostatic on multiple occasions during this hospital stay. His medications were accordingly ordered. Carvedilol and nifedipine were held, as well as Bumex. Imdur 30 mg was being continued however he was noted to have orthostatic hypotension after hemodialysis. Imdur was held on 04/05/2024 and his orthostatics are better today. Lying down his systolic blood pressure was 164, on standing it was at 139. On multiple checks throughout the day his systolic blood pressure was being maintained between 130 to 147 mmHg. He is less dizzy today. He is advised to take Imdur 30mg only on nondialysis days. We briefly discussed initiation of midodrine, however given baseline resting blood pressure between 1 60-1 70, this may not be the most appropriate intervention at this time. Given that he is currently best optimized medically, he is being discharged with recommendations to follow-up with cardiology within 1 week. Colchicine and prednisone have been continued at the time of discharge. He is advised to maintain a blood pressure log and bring it to his next appointment in 1 week. Physical Exam Narrative: General: No acute distress, AO x3 HEENT: PERRLA, pupils bilaterally equal and reactive, pallors not present Chest: Normal vesicular breath sounds, no added sounds, equal good air entry bilaterally CVS: S1-S2 regular, no murmurs, no tachycardia, no gallops, no rubs Abdomen: Soft, nontender, no organomegaly, bowel sounds present Neuro: No focal deficits, no facial deformity, AO x3, power 5/5 in all limbs Discharge Data Studies Completed and Pending Completed Studies During Hospitalization Category Date Time Status XR chest 1V portable [id number] Stat Exams 03/31/24 07:09 Completed CV. echo limited [id number] Routine Ultrasound 04/02/24 13:08 Completed Radiology Impressions Chest X-Ray 03/31/24 07:09 IMPRESSION: 1. Borderline prominence of the cardiac silhouette. 2. Mild interstitial pulmonary edema versus infiltrates. 3. Linear bilateral lower chest pulmonary atelectasis, or scarring. 4. Degenerative and postsurgical changes are demonstrated, as described above. Laboratory Results WBC 12.76 10^3/uL (3.29-11.43) H 04/04/24 02:29 RBC 2.94 10^6/uL (3.85-5.65) L 04/04/24 02:29 Hgb 9.90 g/dL (11.27-16.99) L 04/04/24 02:29 Hct 30.1 % (37-53) L 04/04/24 02:29 MCV 102.4 fl (82-101) H 04/04/24 02: MCH 33.7 pg (27-33) H 04/04/24 02: MCHC 32.9 g/dL (30-55) 04/04/24 02:29 RDW 13.1 % (12.1-15.1) 04/04/24 02:29 Plt Count 245 10^3/cmm (157-399) 04/04/24 02: MPV 10.2 fL (7.4-10.4) 04/04/24 02:29 Neut % (Auto) 87.7 % 04/04/24 02: Lymph % (Auto) 5.9 % 04/04/24 02: Barbour % (Auto) 5.4 % 04/04/24 02:29 Eos % (Auto) 0.0 % 04/04/24 02:29 Baso % (Auto) 0.1 % 04/04/24 02:29 Neut # (Auto) 11.19 10^3/uL (1.8-7.7) H 04/04/24 02:29 Lymph # (Auto) 0.8 10^3/uL (0.8-4.8) 04/04/24 02:29 Barbour # (Auto) 0.7 10^3/uL (0.2-0.9) 04/04/24 02:29 Eos # (Auto) 0.0 10^3/uL (0.0-0.8) 04/04/24 02:29 Baso # (Auto) 0.0 10^3/uL (0.0-0.1) 04/04/24 02:29 Nucleated RBC % (auto) 0 % 04/04/24 02:29 Nucleated RBCs # 0.0 /100WBC 04/04/24 02:29 APTT 84.2 SECONDS (23.9-36.7) H D 04/01/24 04:00 Sodium 138 mmol/L (136-145) 04/04/24 02:29 Potassium 5.2 mmol/L (3.5-5.1) H 04/04/24 02:29 Chloride 103 mmol/L (98-107) 04/04/24 02:29 Carbon Dioxide 25 mmol/L (22-29) 04/04/24 02:29 Anion Gap 15.2 (5-19) 04/04/24 02:29 BUN 41 mg/dL (6-20) H 04/04/24 02:29 Creatinine 3.6 mg/dL (0.7-1.2) H 04/04/24 02:29 GFR Calculation 17.7 mL/min (90-130) L 04/04/24 02:29 Glucose 256 mg/dL (65-115) H 04/04/24 02:29 POC Glucose 189 mg/dL (70-110) H 04/05/24 11:14 Calculated Osmolality 305 mOsm/kg (285-295) H 04/04/24 02:29 Calcium 9.1 mg/dL (8.5-10.5) 04/04/24 02:29 Magnesium 1.8 mg/dL (1.7-2.3) 04/04/24 02:29 Total Bilirubin 0.3 mg/dL (0.15-1.2) 04/04/24 02:29 AST 13 U/L (0-40) 04/04/24 02:29 ALT 13 U/L (0-41) 04/04/24 02:29 Alkaline Phosphatase 88 U/L (40-130) 04/04/24 02:29 Troponin T Baseline 102 ng/L (0-15) H* 03/31/24 07:28 Troponin T 120 Minute 100.4 ng/L (0-15) H 03/31/24 09:57 Delta Troponin T -1.6 ABS# (0-10) L 03/31/24 09:57 Troponin T Hi Sens 6Hr 99.28 ng/L (0-15) H 03/31/24 13:22 Troponin T Hi Sens 6Hr Delta -2.72 ng/L (0-12) L 03/31/24 13:22 Total Protein 6.3 g/dL (6.6-8.7) L 04/04/24 02:29 Albumin 3.6 g/dL (3.5-5.2) 04/04/24 02:29 Globulin 2.7 g/dL (1.3-4.6) 04/04/24 02:29 Vitals Last Vital Signs Temp 97.5 F L 04/05/24 13:38 Pulse 76 04/05/24 13:38 Resp 18 04/05/24 13:38 BP 130/89 04/05/24 13:38 Pulse Ox 93 04/05/24 13:38 O2 Del Method Room Air 04/05/24 11:47 O2 Flow Rate 96 04/01/24 11:15 Discharge Plan Discharge Patient Disposition: Home Condition: Stable Prescriptions: New prednisone 20 mg Tablet 40 mg PO DAILY 15 Days Qty: 30 0RF colchicine 0.6 mg Tablet 0.3 mg PO DAILY 30 Days Qty: 30 0RF hydrocodone-acetaminophen 5-325 mg tablet 1 tab PO Q8H PRN (Reason: pain) 5 Days Qty: 15 0RF Continued bupropion HCl 300 mg tablet extended release 24 hr 300 mg PO QAM Qty: 30 2RF buspirone 10 mg tablet 10 mg PO BID Qty: 60 2RF fluoxetine 40 mg capsule 40 mg PO QAM Qty: 30 2RF atorvastatin 40 mg tablet 40 mg PO QAM Qty: 90 2RF nitroglycerin [Nitrostat] 0.4 mg tablet, sublingual 0.4 mg SUBLINGUAL Q5M PRN (Reason: Chest Pain) Qty: 25 2RF Rx Instructions: do not exceed 3 doses per episode Tresiba FlexTouch U-200 200 unit/mL (3 mL) insulin pen See Rx Instructions .ROUTE .COMPLEX Qty: 9 2RF Dose Instruction: INJECT 40 UNITS SUBCUTANEOUSLY AT BEDTIME Rx Instructions: INJECT 40 UNITS SUBCUTANEOUSLY AT BEDTIME Mounjaro 15 mg/0.5 mL pen injector See Rx Instructions .ROUTE .COMPLEX Qty: 2 2RF Dose Instruction: inject 15mg (0.5ml) SUBCUTANEOUSLY EVERY 7 DAYS Rx Instructions: inject 15mg (0.5ml) SUBCUTANEOUSLY EVERY 7 DAYS levothyroxine 88 mcg tablet 88 mcg PO QAM gabapentin 100 mg capsule 100 mg PO BID hydrocortisone [Procto-Med HC] 2.5 % cream with perineal applicator See Rx Instructions .ROUTE .COMPLEX Rx Instructions: APPLY THIN LAYER TO AFFECTED AREA TWO TO FOUR TIMES A DAY. isosorbide mononitrate 30 mg tablet extended release 24 hr See Rx Instructions .ROUTE .COMPLEX Qty: 30 1RF Rx Instructions: Take 30 mg daily, do not take on dialysis days lorazepam 1 mg Tablet 1 mg PO Q8H PRN (Reason: SEVER NAUSEA) ranolazine 500 mg tablet extended release 12 hr 500 mg PO BID tizanidine 2 mg tablet 2 mg PO BID tamsulosin 0.4 mg capsule 0.4 mg PO DAILY promethazine 25 mg tablet 25 mg PO Q6H pantoprazole 40 mg Tablet,Delayed Release (Dr/Ec) 40 mg PO DAILY Qty: 30 0RF trazodone 100 mg tablet 400 mg PO BEDTIME PRN (Reason: insomia ) diphenhydramine HCl [Benadryl Allergy] 25 mg Tablet 50 mg PO DAILY PRN (Reason: Allergy Symptoms) insulin lispro [Humalog KwikPen Insulin] 100 unit/mL insulin pen See Rx Instructions .ROUTE .COMPLEX Rx Instructions: Sliding scale subcutaneously twice a day as needed. RenaPlex-D 800 mcg-12.5 mg -2,000 unit tablet 1 tab PO DAILY aspirin 81 mg Tablet,Delayed Release (Dr/Ec) 81 mg PO DAILY Qty: 90 3RF Eliquis 2.5 mg tablet 2.5 mg PO BID Qty: 60 2RF clopidogrel 75 mg tablet 75 mg PO DAILY Qty: 90 4RF Discontinued nifedipine 30 mg tablet extended release 30 mg PO DAILY bumetanide 2 mg tablet 2 mg PO BID carvedilol 6.25 mg tablet 6.25 mg PO BID Qty: 90 0RF No Action (DME) Diabetic Shoes with Custom insoles See Rx Instructions .Route .MEDSUPPLY Qty: 1 0RF Rx Instructions: As directed (DME) AFO to left See Rx Instructions .Route .MEDSUPPLY Qty: 1 0RF Rx Instructions: As directed by [facility] (DME) Dexcom G7 Sensor Device See Rx Instructions .ROUTE .COMPLEX Qty: 9 1RF Dose Instruction: CHANGE every 10 DAYS Rx Instructions: CHANGE every 10 DAYS (DME) Dexcom G7 [employer] Director [facility] [place] MISCELLANEOUS Discharge Orders: Discharge Order (Routine); Ordered 04/05/24 Ordered By: Nancy Watson Referrals: Amalia Mccain FNP [Nurse Practitioner] - 1 week (We have notified [facility] of the need for a follow-up appointment to be scheduled. If you have not heard from them within the next 2 business days, please call them directly. ) Kp Montanez, [Primary Care Provider] - 7-10 days (You will need to contact your primary care provider tomorrow for a follow up appointment for 7-10 days from now.) Patient Instructions: Hydrocodone/Acetaminophen (By mouth), Prednisone (By mouth), Colchicine (By mouth), Angina (DC), Dialysis Nutrition Plan (DC), Hemodialysis (DC), Opioid Safety Discharge Attestations Time Spent in Discharge Care*: greater than 30 min Status at Discharge: Cognitive status at discharge: cognitively intact, Behavioral status at discharge: cooperative and independent in ADL's, Quality Metrics Clinical Quality Measures [ No reported AMI, CVA or VTE this stay] Coding Level of Care Code Acute Code for Chg Fwd Diagnoses ESRD (end stage renal disease) N18.6 Chest pain R07.9 Chest pain type: unspecified Elevated troponin R77.8 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 mellitus E11.42
== END 2024-04-05 14:25 | disposition home or self-care (01) | DRG 280 ==
LOC: ER 07:45 → CSU 09:04 → MEDSURG 04-01 19:54
PROVIDERS: Admitting Provider Internal Medicine; Emergency Provider Family Medicine; PCP Internal Medicine; Visit Provider Student in an Organized Health Care Education/Training Program
DX: I30.9 Acute pericarditis, unspecified (principal); N18.6 End stage renal disease; I21.A1 Myocardial infarction type 2; I13.2 Hypertensive heart and chronic kidney disease with heart failure and with stage 5 chronic kidney disease, or end stage renal disease; I50.22 Chronic systolic (congestive) heart failure; F33.2 Major depressive disorder, recurrent severe without psychotic features; I25.10 Atherosclerotic heart disease of native coronary artery without angina pectoris; E11.22 Type 2 diabetes mellitus with diabetic chronic kidney disease; E11.40 Type 2 diabetes mellitus with diabetic neuropathy, unspecified; E11.51 Type 2 diabetes mellitus with diabetic peripheral angiopathy without gangrene; F41.1 Generalized anxiety disorder; K21.9 Gastro-esophageal reflux disease without esophagitis; F10.91 Alcohol use, unspecified, in remission; I95.1 Orthostatic hypotension; D63.1 Anemia in chronic kidney disease; I25.5 Ischemic cardiomyopathy; M21.372 Foot drop, left foot; E66.9 Obesity, unspecified; Z68.37 Body mass index [BMI] 37.0-37.9, adult; I25.2 Old myocardial infarction; Z79.02 Long term (current) use of antithrombotics/antiplatelets; Z99.2 Dependence on renal dialysis; Z79.4 Long term (current) use of insulin; Z79.01 Long term (current) use of anticoagulants; Z79.85 Long-term (current) use of injectable non-insulin antidiabetic drugs; Z79.82 Long term (current) use of aspirin; Z95.5 Presence of coronary angioplasty implant and graft; Z88.2 Allergy status to sulfonamides; Z91.041 Radiographic dye allergy status; Z87.440 Personal history of urinary (tract) infections; Z86.711 Personal history of pulmonary embolism; Z86.718 Personal history of other venous thrombosis and embolism; Z80.8 Family history of malignant neoplasm of other organs or systems; Z82.3 Family history of stroke; Z82.49 Family history of ischemic heart disease and other diseases of the circulatory system
CPT/HCPCS: 12345; 36415; 36416; 36591; 51798; 71045; 80053; 82962; 83735; 84484; 85025; 85730; 90935; 93005; 93308; 96365; 96366; 96372; 96375; 96376; 99285; G0378; J1644; J1815; J2060; J2270; J3475; J3490; J7040; J7512; Q0169; Q3014

== ENCOUNTER 2024-04-07 06:58 | Emergency (ER) | payer MEDICARE, SELFPAY ==
[2024-03-20 13:31] VITALS: BP 125/53; BMI 35.0
[2024-04-07 07:00] VITALS: BP 103/53; PULSE 78; RESP 18; TEMP 36.4; O2SAT 92
--- NOTE | 2024-04-07 07:00 | XR_ITS ---
WS: [email or web address] Exam: XR ankle LT min 3V* [id number] Date/Time of Exam: 04/07/2024 7:15 AM Reason For Exam: Trauma No acute fracture. The ankle mortise is intact. Vascular calcifications about the ankle and foot. XR/XR ankle LT min 3V* [id number] IMPRESSION: 1. No fracture identified.
--- NOTE | 2024-04-07 07:00 | XR_ITS ---
WS: [email or web address] Exam: XR hip LT 2-3V wo/w pel* [id number] Date/Time of Exam: 04/07/2024 7:15 AM Reason For Exam: Trauma No acute fracture. The joint compartment is relatively well-maintained. Minimal degenerative change a t the acetabulum. Surgical clips in the upper medial thigh. Artery and seminal vesicle calcification s in the pelvis. XR/XR hip LT 2-3V wo/w pel* [id number] IMPRESSION: 1. Minimal DJD. No fracture.
--- NOTE | 2024-04-07 07:00 | XR_ITS ---
WS: [email or web address] Exam: XR knee LT 3V* [id number] Date/Time of Exam: 04/07/2024 7:16 AM Reason For Exam: Trauma No fracture noted. The joints are preserved. Chondrocalcinosis of the lateral meniscus. No joint effu elizabeth. Vascular calcifications about the knee. XR/XR knee LT 3V* [id number] IMPRESSION: 1. No fracture. Chondrocalcinosis.
--- NOTE | 2024-04-07 07:00 | XRR_ITS ---
PROCEDURE INFORMATION: Exam: XR Left Shoulder Exam date and time: 04/07/2024 7:27 AM Age: 53 years old Clinical indication: Injury or trauma; Other: Not specified; Blunt trauma (contusions or hematomas); Shoulder; Left TECHNIQUE: Imaging protocol: Radiologic exam of the left shoulder. Views: 2 or more views. COMPARISON: CR XR chest 1V portable [id number] 03/31/2024 7:43 AM FINDINGS: Bones/joints: No fracture, dislocation or subluxation is seen with questionably mild distal calcific tendinitis of the supraspinatus or infraspinatus tendon. Glenohumeral and acromioclavicular alignments are intact. Vasculature: There is a vascular type stent with adjacent surgical clips in the medial soft tissues of the upper arm. Soft tissues: Normal. Other findings: There is an Infusaport incompletely seen. XR/XR shoulder LT min 2V* [id number] IMPRESSION: No acute abnormality. Questionable calcific tendinitis.
--- NOTE | 2024-04-07 07:02 | CTR_ITS ---
PROCEDURE INFORMATION: Exam: CT Head Without Contrast Exam date and time: 04/07/2024 7:34 AM Age: 53 years old Clinical indication: Injury or trauma; Fall; Concussion/head injury; Without loss of consciousness; Patient HX: Fell and hit head from standing height pain in head and neck TECHNIQUE: Imaging protocol: Computed tomography of the head without contrast. Radiation optimization: All CT scans at this facility use at least one of these dose optimization techniques: automated exposure control; mA and/or kV adjustment per patient size (includes targeted exams where dose is matched to clinical indication); or iterative reconstruction. COMPARISON: CT head wo con* [id number] 02/03/2024 12:43 PM RADIATION DOSE METRICS: Total DLP (mGy-cm): 1386.4 FINDINGS: Brain: . No hemorrhage. Periventricular white matter lucency represents atherosclerotic encephalopathic changes. No mass effect. Cerebral ventricles: No ventriculomegaly. Ventricular prominence proportionate to the degree of atrophy observed. The Paranasal sinuses: Visualized sinuses are unremarkable. No fluid levels. Mastoid air cells: Visualized mastoid air cells are well aerated. Bones: Unremarkable. No acute fracture. Soft tissues: Unremarkable. CT/CT head wo con* [id number] IMPRESSION: No acute intracranial abnormality.
--- NOTE | 2024-04-07 07:02 | CTR_ITS ---
PROCEDURE INFORMATION: Exam: CT Cervical Spine Without Contrast Exam date and time: 04/07/2024 7:34 AM Age: 53 years old Clinical indication: Injury or trauma; Concussion/head injury; Patient HX: Fall from standing height with head trauma TECHNIQUE: Imaging protocol: Computed tomography of the cervical spine without contrast. Radiation optimization: All CT scans at this facility use at least one of these dose optimization techniques: automated exposure control; mA and/or kV adjustment per patient size (includes targeted exams where dose is matched to clinical indication); or iterative reconstruction. COMPARISON: CT cervical spin wo con* [id number] 02/03/2024 12:43 PM RADIATION DOSE METRICS: Total DLP (mGy-cm): 56679 FINDINGS: Bones: No acute fracture. Normal alignment. No significant disc bulge or herniation. No severe spinal canal stenosis. Moderate disc space narrowing and spurring C5-C6. Anatomic alignment. No fracture, lytic, or sclerotic bone lesion. No significant neural foraminal narrowing. Lungs: Lung apices are normal. Soft tissues: The perivertebral soft tissues are normal. CT/CT cervical spin wo con* [id number] IMPRESSION: No acute findings. Focal degenerative disc disease.
--- NOTE | 2024-04-07 07:17 | ED_ITS ---
HPI - Fall General: Chief Complaint: Fall Stated Complaint: Fall/ L side pain Time Seen by Provider: 04/07/24 06:59 History of Present Illness: 53-year-old [facility] of a [facility]. He is complaining that he stumbled and fell at a ground-level mechanical fall following landed on his elasticized complaining of left knee ankle and hip pain as well as left shoulder pain. He did not hit his head he is on anticoagulants he did not lose consciousness. Denies chest pain. Patient has end-stage renal disease he is scheduled for dialysis this morning. Associated symptoms-after fall: Denies abdominal pain, chest pain or neck pain Related Data Home Medications Medication Instructions Recorded Confirmed levothyroxine 88 mcg tablet 88 mcg PO QAM 02/09/21 03/31/24 blood-glucose meter,continuous 02/27/23 03/31/24 (Dexcom G7 Director Of Group Counseling Program) diphenhydramine HCl 25 mg tablet 50 mg PO DAILY PRN Allergy Symptoms 05/02/23 03/31/24 (Benadryl Allergy) insulin lispro 100 unit/mL See Rx Instructions .Route .COMPLEX 05/02/23 03/31/24 subcutaneous pen (Humalog KwikPen (U-100) Insulin) gabapentin 100 mg capsule 100 mg PO BID 07/07/23 03/31/24 hydrocortisone 2.5 % topical cream See Rx Instructions .Route .COMPLEX 10/01/23 03/31/24 with perineal applicator (Procto-Med HC) lorazepam 1 mg tablet 1 mg PO Q8H PRN SEVER NAUSEA 10/24/23 03/31/24 ranolazine 500 mg tablet,extended 500 mg PO BID 10/24/23 03/31/24 release,12 hr vit B,C-folic ac 800 mcg-zinc 12.5 1 tab PO DAILY 10/29/23 03/31/24 mg-selen-D3 2,000 unit-vit E tablet (RenaPlex-D) promethazine 25 mg tablet 25 mg PO Q6H 03/24/24 03/31/24 tamsulosin 0.4 mg capsule 0.4 mg PO DAILY 03/24/24 03/31/24 tizanidine 2 mg tablet 2 mg PO BID 03/24/24 03/31/24 trazodone 100 mg tablet 400 mg PO BEDTIME PRN insomia 03/31/24 03/31/24 Previous Rx's Medication Instructions Recorded atorvastatin 40 mg tablet 40 mg PO QAM #90 tabs 10/25/22 AFO to left #1 ea 07/25/23 Diabetic Shoes with Custom insoles #1 ea 07/25/23 nitroglycerin 0.4 mg sublingual 0.4 mg sublingual Q5M PRN Chest 08/27/23 tablet (Nitrostat) Pain #25 tabs isosorbide mononitrate 30 mg See Rx Instructions .Route 10/03/23 tablet,extended release 24 hr .COMPLEX #30 tabs apixaban 2.5 mg tablet (Eliquis) 2.5 mg PO BID #60 tabs 10/30/23 aspirin 81 mg tablet,delayed 81 mg PO DAILY #90 tabs 10/30/23 release clopidogrel 75 mg tablet 75 mg PO DAILY #90 tabs 10/30/23 blood-glucose sensor (Dexcom G7 #9 ea 11/25/23 Sensor device) insulin degludec 200 unit/mL (3 See Rx Instructions .Route 12/04/23 mL) subcutaneous pen (Tresiba .COMPLEX #9 mL FlexTouch U-200 insulin) tirzepatide 15 mg/0.5 mL See Rx Instructions .Route 12/30/23 subcutaneous pen injector .COMPLEX #2 mL (Mounjaro) bupropion HCl 300 mg 24 hr tablet, 300 mg PO QAM #30 tabs 01/22/24 extended release buspirone 10 mg tablet 10 mg PO BID #60 tabs 01/22/24 fluoxetine 40 mg capsule 40 mg PO QAM #30 caps 01/22/24 pantoprazole 40 mg tablet,delayed 40 mg PO DAILY #30 tabs 03/26/24 release colchicine 0.6 mg tablet 0.3 mg (1/2 x 0.6 mg) PO DAILY 30 04/05/24 days #30 tabs hydrocodone 5 mg-acetaminophen 325 1 tab PO Q8H PRN pain 5 days #15 04/05/24 mg tablet tabs prednisone 20 mg tablet 40 mg (2 x 20 mg) PO DAILY 15 days 04/05/24 #30 tabs Allergies Allergy/AdvReac Type Severity Reaction Status Date / Time Iodinated Contrast Media Allergy Severe ALGY-Difficulty Verified 03/18/24 08:34 Breathing iodine Allergy Severe ALGY-Difficulty Verified 03/18/24 08:34 Breathing metoclopramide [From Reglan] Allergy Severe ALGY-Difficulty Verified 03/18/24 08:34 Breathing nalbuphine [From Nubain] Allergy Severe ADR-Diarrhe Verified 03/18/24 08:34 a naproxen [From Naprosyn] Allergy Severe ADR-Vomitin Verified 03/18/24 08:34 g Sulfa (Sulfonamide Allergy Severe ALGY-Difficulty Verified 03/18/24 08:34 Antibiotics) Breathing ketorolac Allergy Intermediate ADR-Nausea Verified 03/18/24 08:34 ondansetron [From Zofran] Allergy Intermediate ADR-Abdominal Verified 03/18/24 08:34 Pain prochlorperazine Allergy Intermediate ADR-Irritab Verified 03/18/24 08:34 [From Compazine] le codeine AdvReac Severe ALGY-Anaphy Verified 03/18/24 08:34 laxis haloperidol [From Haldol] AdvReac Intermediate ADR-Irritab Verified 03/18/24 08:34 le Review of Systems Const: Denies: fever(s) or chills Card: Denies: chest pain Resp: Denies: dyspnea GI: Denies: abdominal pain : Denies: dysuria, urinary frequency or urinary urgency Musc: Reports: extremity pain and joint pain; Denies: neck pain or back pain Skin/Breast: Denies: rash PFSH ED PFSH: Medical History Elevated troponin Essential hypertension Essential hypertension ESRD (end stage renal disease) Hypertension Psychiatric care 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 mellitus Chronic renal failure Chest pain Chest pain CRF (chronic renal failure) Chronic right SI joint pain Chronic systolic heart failure UTI (urinary tract infection) Peripheral arterial disease PVD (peripheral vascular disease) Worsening angina Angina at rest Chest pain ESRD (end stage renal disease) Uremic encephalopathy Generalized anxiety disorder ESRD (end stage renal disease) D-dimer, elevated Acute on chronic congestive heart failure History of pulmonary embolism Diabetes Acute kidney injury superimposed on CKD GERD (gastroesophageal reflux disease) Alcohol use disorder, moderate, in sustained remission Major depressive disorder, recurrent severe without psychotic features DVT (deep venous thrombosis) (~03/2020) Proximal left subclavian, basilic and brachial veins, started eliquis this stay, felt present prior to admission Chronic kidney disease -baseline Cr appears to be around 1.5 Atherosclerotic heart disease of [place] coronary artery with other forms of angina pectoris hx of CAD with prior stenting of proximal LAD, LCx, RCA Ischemic cardiomyopathy Onychodystrophy Chronic anticoagulation Eliquis Osteoarthritis of spine Hypothyroidism Hypertension Hyperlipidemia Diabetes Depression Anemia Foot drop, left H/O acute myocardial infarction H/O deep venous thrombosis developed compartment syndrome Surgical History Peritoneal dialysis catheter in situ (06/15/21) History of appendectomy 1995 History of excision of mass 06/08/2019: Subcutaneous mass on back History of removal of Port-a-Cath Port-A-Cath in place H/O vasectomy Hx of cholecystectomy History of coronary artery stent placement 5x H/O skin graft History of inguinal hernia repair, bilateral 2000 H/O removal of testicle left H/O colonoscopy (11/14/20) 08/2015 H/O esophagogastroduodenoscopy (11/14/20) 08/2015 Family History Grandfather Cancer skin cancer Parkinson disease Brother Hypertension Father Heart disease Mother Hypertension Stroke Aneurysm Grandmother Aneurysm Other Crohn's disease Denies family history of Anesthesia complication Bleeding disorder Social History Smoking and tobacco/nicotine status: never used tobacco/nicotine Second hand smoke exposure: No Alcohol intake: former Year of sobriety/quit date alcohol: 2015 Former alcohol use details: Only holidays - last use 05.19.2015 Substance/Drug Use: never Adopted: No Caregiver/support person: No Lives independently: Yes Household members: spouse Housing: Apartment Marital status: Number of children: 2 Number of grandchildren: 0 Highest education level completed: High School Graduate service: No Current occupational status: disabled Pets and animals: Yes Pets & animals: dog(s) Leisure activites: games and other Leisure activities details: watching TV Sexually active: Yes Do you think of yourself as: Straight/Heterosexual Current gender identity: Male Shannon/Yazidism: Jain Special shannon needs: No Agree to transfusion: Yes Physical Exam Const: GENERAL APPEARANCE: cooperative ORIENTATION/CONSCIOUSNESS: Yes awake, Yes oriented to person, Yes oriented to place and Yes oriented to time HENMT: COMMON NORMALS: normocephalic, atraumatic and hearing grossly normal bilaterally HEAD & SCALP: normocephalic and atraumatic Resp: COMMON NORMALS: normal respiratory effort, No retractions, No use of accessory muscles and clear to auscultation bilaterally AUSCULTATION: clear to auscultation bilaterally Cardio: COMMON NORMALS: regular rate, regular rhythm and No murmurs present (Cardio) RATE: regular rate RHYTHM: regular rhythm GI: COMMON NORMALS: Soft to palpation and No hepatosplenomegaly present AUSCULTATION: Yes normoactive bowel sounds PALPATION: Yes Soft to palpation, No Tenderness to palpation present (GI), No Guarding due to palpation present (GI) and Yes No hepatosplenomegaly present Extremity: COMMON NORMALS: normal to inspection, capillary refill normal, no clubbing, cyanosis or edema, no calf tenderness and no pedal edema Neuro: SENSORIUM/ORIENTATION: Yes oriented to person, Yes oriented to place and Yes oriented to time Skin: OTHER: Abrasion left knee no full-thickness laceration Course Vital Signs: Vital signs: Vital Signs Temperature 97.6 F 04/07/24 07:00 Pulse Rate 75 04/07/24 07:22 Respiratory Rate 18 04/07/24 07:00 Blood Pressure 103/53 04/07/24 07:22 Pulse Oximetry 92 04/07/24 07:22 Oxygen Delivery Me thod Room Air 04/07/24 07:22 MDM - Fall Medical Decision Making Imaging no acute fractures no acute findings. Does not abrasion on his knee use of [id number] topical medications follow-up with his primary care he should proceed directly to dialysis after leaving the ER. Medical Records I reviewed the patient's medical records. Lab Data Radiology Impressions Ankle X-Ray 04/07/24 07:00 IMPRESSION: 1. No fracture identified. Hip/Pelvis X-Ray 04/07/24 07:00 IMPRESSION: 1. Minimal DJD. No fracture. Knee X-Ray 04/07/24 07:00 IMPRESSION: 1. No fracture. Chondrocalcinosis. Cervical Spine CT 04/07/24 07:02 IMPRESSION: No acute findings. Focal degenerative disc disease. Head CT 04/07/24 07:02 IMPRESSION: No acute intracranial abnormality. All radiology interpretation(s) finalized by discharge Discharge Plan Discharge Patient Disposition: Home Clinical Impression: Abrasion of knee, left, Fall Condition: Stable Prescriptions: No Action (DME) Diabetic Shoes with Custom insoles See Rx Instructions .Route .MEDSUPPLY Qty: 1 0RF Rx Instructions: As directed (DME) AFO to left See Rx Instructions .Route .MEDSUPPLY Qty: 1 0RF Rx Instructions: As directed by [facility] bupropion HCl 300 mg tablet extended release 24 hr 300 mg PO QAM Qty: 30 2RF buspirone 10 mg tablet 10 mg PO BID Qty: 60 2RF fluoxetine 40 mg capsule 40 mg PO QAM Qty: 30 2RF atorvastatin 40 mg tablet 40 mg PO QAM Qty: 90 2RF nitroglycerin [Nitrostat] 0.4 mg tablet, sublingual 0.4 mg SUBLINGUAL Q5M PRN (Reason: Chest Pain) Qty: 25 2RF Rx Instructions: do not exceed 3 doses per episode (DME) Dexcom G7 Sensor Device See Rx Instructions .ROUTE .COMPLEX Qty: 9 1RF Dose Instruction: CHANGE every 10 DAYS Rx Instructions: CHANGE every 10 DAYS Tresiba FlexTouch U-200 200 unit/mL (3 mL) insulin pen See Rx Instructions .ROUTE .COMPLEX Qty: 9 2RF Dose Instruction: INJECT 40 UNITS SUBCUTANEOUSLY AT BEDTIME Rx Instructions: INJECT 40 UNITS SUBCUTANEOUSLY AT BEDTIME Mounjaro 15 mg/0.5 mL pen injector See Rx Instructions .ROUTE .COMPLEX Qty: 2 2RF Dose Instruction: inject 15mg (0.5ml) SUBCUTANEOUSLY EVERY 7 DAYS Rx Instructions: inject 15mg (0.5ml) SUBCUTANEOUSLY EVERY 7 DAYS levothyroxine 88 mcg tablet 88 mcg PO QAM gabapentin 100 mg capsule 100 mg PO BID hydrocortisone [Procto-Med HC] 2.5 % cream with perineal applicator See Rx Instructions .ROUTE .COMPLEX Rx Instructions: APPLY THIN LAYER TO AFFECTED AREA TWO TO FOUR TIMES A DAY. isosorbide mononitrate 30 mg tablet extended release 24 hr See Rx Instructions .ROUTE .COMPLEX Qty: 30 1RF Rx Instructions: Take 30 mg daily, do not take on dialysis days lorazepam 1 mg Tablet 1 mg PO Q8H PRN (Reason: SEVER NAUSEA) ranolazine 500 mg tablet extended release 12 hr 500 mg PO BID tizanidine 2 mg tablet 2 mg PO BID tamsulosin 0.4 mg capsule 0.4 mg PO DAILY promethazine 25 mg tablet 25 mg PO Q6H pantoprazole 40 mg Tablet,Delayed Release (Dr/Ec) 40 mg PO DAILY Qty: 30 0RF trazodone 100 mg tablet 400 mg PO BEDTIME PRN (Reason: insomia ) prednisone 20 mg Tablet 40 mg PO DAILY 15 Days Qty: 30 0RF colchicine 0.6 mg Tablet 0.3 mg PO DAILY 30 Days Qty: 30 0RF hydrocodone-acetaminophen 5-325 mg tablet 1 tab PO Q8H PRN (Reason: pain) 5 Days Qty: 15 0RF (DME) Dexcom G7 Director Of Group Counseling Program Misc MISCELLANEOUS diphenhydramine HCl [Benadryl Allergy] 25 mg Tablet 50 mg PO DAILY PRN (Reason: Allergy Symptoms) insulin lispro [Humalog KwikPen Insulin] 100 unit/mL insulin pen See Rx Instructions .ROUTE .COMPLEX Rx Instructions: Sliding scale subcutaneously twice a day as needed. RenaPlex-D 800 mcg-12.5 mg -2,000 unit tablet 1 tab PO DAILY aspirin 81 mg Tablet,Delayed Release (Dr/Ec) 81 mg PO DAILY Qty: 90 3RF Eliquis 2.5 mg tablet 2.5 mg PO BID Qty: 60 2RF clopidogrel 75 mg tablet 75 mg PO DAILY Qty: 90 4RF Discharge Orders: Discharge ED (Routine); Ordered 04/07/24 Ordered By: Timo Mckoy Referrals: Kp Montanez, [Primary Care Provider] - Discharge Diet: Usual diet Discharge Activity: Resume usual activity Patient Instructions: Opioid Safety, Pain Management Activity Restrictions/Additional Instructions: Thank you for choosing [facility] for your healthcare needs today. It is very important that you follow up as instructed or that you return to the Emergency Department should you have concerns or if your condition changes or worsens in any way. You are seen in the emergency room after a fall x-rays of your extremities on the left side that were hurting as well as CT of your head and neck were all read as no acute findings. You likely will be sore for the next several days. You can use previously prescribed medications for the aches and pains. Coding Level of Care Code ED Caddie Supervisor for Aaron Irene
[2024-04-07 07:22] VITALS: BP 103/53; PULSE 75; O2SAT 92
[2024-04-07 08:36] VITALS: BP 120/53; PULSE 76; O2SAT 95
== END 2024-04-07 08:41 | disposition home or self-care (01) ==
PROVIDERS: Emergency Provider Family Medicine; PCP Internal Medicine
DX: S80.212A Abrasion, left knee, initial encounter (principal); W19.XXXA Unspecified fall, initial encounter; Z79.82 Long term (current) use of aspirin; Z79.01 Long term (current) use of anticoagulants; Z79.02 Long term (current) use of antithrombotics/antiplatelets; Z95.5 Presence of coronary angioplasty implant and graft; E11.22 Type 2 diabetes mellitus with diabetic chronic kidney disease; I12.0 Hypertensive chronic kidney disease with stage 5 chronic kidney disease or end stage renal disease; N18.6 End stage renal disease
CPT/HCPCS: 70450; 72125; 73030; 73502; 73562; 73610; 99284

== ENCOUNTER → 2024-04-08 15:07 | Outpatient (BNVA) | payer MEDICARE, SELFPAY ==
[2024-03-20 13:31] VITALS: BP 125/53; BMI 35.0
== END ==
PROVIDERS: PCP Internal Medicine; Visit Provider Podiatrist Foot & Ankle Surgery
DX: M79.672 Pain in left foot (principal); E11.42 Type 2 diabetes mellitus with diabetic polyneuropathy; L60.3 Nail dystrophy; M21.372 Foot drop, left foot; M21.41 Flat foot [pes planus] (acquired), right foot; M21.42 Flat foot [pes planus] (acquired), left foot; N18.9 Chronic kidney disease, unspecified; S92.425A Nondisplaced fracture of distal phalanx of left great toe, initial encounter for closed fracture; W22.03XA Walked into furniture, initial encounter; Z79.4 Long term (current) use of insulin; Z09 Encounter for follow-up examination after completed treatment for conditions other than malignant neoplasm
CPT/HCPCS: 11721; 73630; 99213; 99214

== ENCOUNTER 2024-04-15 10:01 | Observation (INO) | payer MEDICARE, SELFPAY ==
[2024-03-20 13:31] VITALS: BP 125/53; BMI 35.0
[2024-04-15] VITALS (30 sets, daily range): BP systolic 131–162; BP diastolic 43–84; PULSE 67–88; RESP 11–25; TEMP 36.7–37; O2SAT 93–99; BMI 35.5
--- NOTE | 2024-04-15 10:03 | ECG_ITS ---
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 Measurements Intervals [place] Rate: 75 P: 9 DE: 167 QRS: -22 QRSD: 107 T: 20 QT: 410 QTc: 458 Interpretive Statements SINUS RHYTHM POSSIBLE ANTERIOR MYOCARDIAL INFARCTION , PROBABLY OLD [30 ms Q WAVE IN V3/V4, OR R < 0.2 mV IN V4] diffuse nonspecific T wave changes Compared to ECG 03/31/2024 19:27:52 Ectopic atrial rhythm no longer present Myocardial infarct finding still present Electronically Signed On 04-15-2024 19:12:30 [employer]PERVISOR [employer] by Karen Choi M.D. [email or web address]
--- NOTE | 2024-04-15 10:03 | XRR_ITS ---
PROCEDURE INFORMATION: Exam: XR Chest Exam date and time: 04/15/2024 10:32 AM Age: 53 years old Clinical indication: Pain; Chest pressure; Prior surgery; Surgery date: 6+ months; Surgery type: Open heart port; Additional info: Chest pain TECHNIQUE: Imaging protocol: Radiologic exam of the chest. Views: 1 view. COMPARISON: CR XR chest 1V portable [id number] 03/31/2024 7:43 AM FINDINGS: Tubes, catheters and devices: Left chest wall port is in satisfactory location with tip overlying the superior vena cava. Lungs: No consolidation. Pleural spaces: No sizable pleural effusion or pneumothorax. Heart/Mediastinum: Stable cardiomediastinal silhouette. Bones/joints: Status post median sternotomy. Soft tissues: Left axillary vascular stents. XR/XR chest 1V portable [id number] IMPRESSION: No acute intrathoracic findings.
--- NOTE | 2024-04-15 10:13 | ED_ITS ---
HPI - Chest Pain 2 General: Chief Complaint: Chest Pain Stated Complaint: Chest Pain Time Seen by Provider: 04/15/24 10:03 History of Present Illness: Patient presents to the ER after having chest pain at dialysis. Patient said he was sleeping at dialysis when he woke him up to give him about his low blood pressure when he started having chest pain on his left side that radiates down his left arm and up into his left neck. Patient just had a angiogram done couple months ago per patient per record this appears it was done on 03/25/2024, significant 80% proximal RCA in-stent restenosis and 80% hazy distal circumflex stent edge stenosis both treated with balloon angioplasty, patient denies any dyspnea, diaphoresis, nausea vomiting at this time. 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 Technician) diphenhydramine HCl 25 mg tablet 50 mg PO DAILY PRN Allergy Symptoms 05/02/23 04/15/24 (Benadryl Allergy) insulin lispro 100 unit/mL See Rx Instructions .Route .COMPLEX 05/02/23 04/15/24 subcutaneous pen (Humalog KwikPen (U-100) Insulin) gabapentin 100 mg capsule 100 mg PO BID 07/07/23 04/15/24 lorazepam 1 mg tablet 1 mg PO Q8H PRN SEVER NAUSEA 10/24/23 04/15/24 vit B,C-folic ac 800 mcg-zinc 12.5 1 tab PO DAILY 10/29/23 04/15/24 mg-selen-D3 2,000 unit-vit E tablet (RenaPlex-D) tamsulosin 0.4 mg capsule 0.4 mg PO DAILY 03/24/24 04/15/24 tizanidine 2 mg tablet 2 mg PO BID 03/24/24 04/15/24 trazodone 100 mg tablet 300 mg PO BEDTIME PRN insomia 03/31/24 04/15/24 allopurinol 100 mg tablet 100 mg PO .EVERY OTHER DAY 04/15/24 04/15/24 amlodipine 2.5 mg tablet 2.5 mg PO DAILY 04/15/24 04/15/24 bumetanide 2 mg tablet 2 mg PO BID 04/15/24 04/15/24 dulaglutide 1.5 mg/0.5 mL 1.5 mg SUBCUT Q7D 04/15/24 04/15/24 subcutaneous pen injector (Trulicity) hydrocodone 5 mg-acetaminophen 325 1 tab PO Q8H PRN pain 04/15/24 04/15/24 mg tablet insulin degludec 200 unit/mL (3 52 unit SUBCUT QAM 04/15/24 04/15/24 mL) subcutaneous pen (Tresiba FlexTouch U-200 insulin) morphine 15 mg immediate release 15 mg PO BID PRN Pain 04/15/24 04/15/24 tablet prednisolone 5 mg tablet 5 mg PO DAILY 04/15/24 04/15/24 sevelamer carbonate 800 mg tablet 800 mg PO TID 04/15/24 04/15/24 Previous Rx's Medication Instructions Recorded atorvastatin 40 mg tablet 40 mg PO QAM #90 tabs 10/25/22 AFO to left #1 ea 07/25/23 Diabetic Shoes with Custom insoles #1 ea 07/25/23 nitroglycerin 0.4 mg sublingual 0.4 mg sublingual Q5M PRN Chest 08/27/23 tablet (Nitrostat) Pain #25 tabs isosorbide mononitrate 30 mg See Rx Instructions .Route 10/03/23 tablet,extended release 24 hr .COMPLEX #30 tabs apixaban 2.5 mg tablet (Eliquis) 2.5 mg PO BID #60 tabs 10/30/23 aspirin 81 mg tablet,delayed 81 mg PO DAILY #90 tabs 10/30/23 release clopidogrel 75 mg tablet 75 mg PO DAILY #90 tabs 10/30/23 blood-glucose sensor (Dexcom G7 #9 ea 11/25/23 Sensor device) bupropion HCl 300 mg 24 hr tablet, 300 mg PO QAM #30 tabs 01/22/24 extended release buspirone 10 mg tablet 10 mg PO BID #60 tabs 01/22/24 fluoxetine 40 mg capsule 40 mg PO QAM #30 caps 01/22/24 pantoprazole 40 mg tablet,delayed 40 mg PO DAILY #30 tabs 03/26/24 release prednisone 20 mg tablet 40 mg (2 x 20 mg) PO DAILY 15 days 04/05/24 #30 tabs colchicine 0.6 mg tablet 0.3 mg (1/2 x 0.6 mg) PO DAILY #60 04/08/24 tabs nifedipine 30 mg tablet,extended 30 mg PO DAILY #90 tabs 04/08/24 release ranolazine 1,000 mg 1,000 mg PO BID #60 tabs 04/08/24 tablet,extended release,12 hr tirzepatide 15 mg/0.5 mL See Rx Instructions .Route 04/08/24 subcutaneous pen injector .COMPLEX #2 mL (Mounjaro) Allergies Allergy/AdvReac Type Severity Reaction Status Date / Time Iodinated Contrast Media Allergy Severe ALGY-Difficulty Verified 04/10/24 07:10 Breathing iodine Allergy Severe ALGY-Difficulty Verified 04/10/24 07:10 Breathing metoclopramide [From Reglan] Allergy Severe ALGY-Difficulty Verified 04/10/24 07:10 Breathing nalbuphine [From Nubain] Allergy Severe ADR-Diarrhe Verified 04/10/24 07:10 a naproxen [From Naprosyn] Allergy Severe ADR-Vomitin Verified 04/10/24 07:10 g Sulfa (Sulfonamide Allergy Severe ALGY-Difficulty Verified 04/10/24 07:10 Antibiotics) Breathing ketorolac Allergy Intermediate ADR-Nausea Verified 04/10/24 07:10 ondansetron [From Zofran] Allergy Intermediate ADR-Abdominal Verified 04/10/24 07:10 Pain prochlorperazine Allergy Intermediate ADR-Irritab Verified 04/10/24 07:10 [From Compazine] le codeine AdvReac Severe ALGY-Anaphy Verified 04/10/24 07:10 laxis haloperidol [From Haldol] AdvReac Intermediate ADR-Irritab Verified 04/10/24 07:10 le Review of Systems 2 General: Reports: 10 or more systems reviewed and unremarkable except in HPI and below PFSH ED 2 PFSH: Medical History Elevated troponin Essential hypertension Essential hypertension ESRD (end stage renal disease) Hypertension Psychiatric care 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 mellitus Chronic renal failure Chest pain Chest pain CRF (chronic renal failure) Chronic right SI joint pain Chronic systolic heart failure UTI (urinary tract infection) Peripheral arterial disease PVD (peripheral vascular disease) Worsening angina Angina at rest Chest pain ESRD (end stage renal disease) Uremic encephalopathy Generalized anxiety disorder ESRD (end stage renal disease) D-dimer, elevated Acute on chronic congestive heart failure History of pulmonary embolism Diabetes Acute kidney injury superimposed on CKD GERD (gastroesophageal reflux disease) Alcohol use disorder, moderate, in sustained remission Major depressive disorder, recurrent severe without psychotic features DVT (deep venous thrombosis) (~03/2020) Proximal left subclavian, basilic and brachial veins, started eliquis this stay, felt present prior to admission Chronic kidney disease -baseline Cr appears to be around 1.5 Atherosclerotic heart disease of [place] coronary artery with other forms of angina pectoris hx of CAD with prior stenting of proximal LAD, LCx, RCA Ischemic cardiomyopathy Onychodystrophy Chronic anticoagulation Eliquis Osteoarthritis of spine Hypothyroidism Hypertension Hyperlipidemia Diabetes Depression Anemia Foot drop, left H/O acute myocardial infarction H/O deep venous thrombosis developed compartment syndrome Surgical History Peritoneal dialysis catheter in situ (06/15/21) History of appendectomy 1995 History of excision of mass 06/08/2019: Subcutaneous mass on back History of removal of Port-a-Cath Port-A-Cath in place H/O vasectomy Hx of cholecystectomy History of coronary artery stent placement 5x H/O skin graft History of inguinal hernia repair, bilateral 1999 H/O removal of testicle left H/O colonoscopy (11/14/20) 08/2015 H/O esophagogastroduodenoscopy (11/14/20) 08/2015 Family History Grandfather Cancer skin cancer Parkinson disease Brother Hypertension Father Heart disease Mother Hypertension Stroke Aneurysm Grandmother Aneurysm Other Crohn's disease Denies family history of Anesthesia complication Bleeding disorder Social History Smoking and tobacco/nicotine status: never used tobacco/nicotine Second hand smoke exposure: No Alcohol intake: former Year of sobriety/quit date alcohol: 2016 Former alcohol use details: Only holidays - last use 05.19.2015 Substance/Drug Use: never Adopted: No Caregiver/support person: No Lives independently: Yes Household members: spouse Housing: Apartment Marital status: Number of children: 2 Number of grandchildren: 0 Highest education level completed: High School Graduate service: No Current occupational status: disabled Pets and animals: Yes Pets & animals: dog(s) Leisure activites: games and other Leisure activities details: watching TV Sexually active: Yes Do you think of yourself as: Straight/Heterosexual Current gender identity: Male Shannon/Taoism: Jain Special shannon needs: No Agree to transfusion: Yes Physical Exam 2 Const: COMMON NORMALS: no acute distress, average body habitus, patient oriented x3, no limitations, healthy appearing, alert and well nourished HENMT: COMMON NORMALS: normocephalic, atraumatic, hearing grossly normal bilaterally, external ears normal, Normal external nose present and moist oral mucous membranes HEAD & SCALP: normocephalic and atraumatic NOSE: Normal external nose present EXTERNAL EAR: Yes external ears normal Neck/C-Spine: COMMON NORMALS: no JVD Chest: COMMONS NORMALS: normal inspection of the chest and normal palpation of entire chest wall Resp: COMMON NORMALS: normal respiratory effort, No retractions, No use of accessory muscles and clear to auscultation bilaterally AUSCULTATION: clear to auscultation bilaterally Cardio: COMMON NORMALS: no JVD, regular rate, regular rhythm, S1 normal heart sound present, S2 normal heart sound present, No gallops present (Cardio), No clicks present (Cardio), No murmurs present (Cardio) and No rub (Cardio) R ATE: regular rate RHYTHM: regular rhythm HEART SOUNDS: S1 normal heart sound present and S2 normal heart sound present GI: COMMON NORMALS: Normal to inspection, nondistended, normoactive bowel sounds present, Soft to palpation, non-tender, No hepatosplenomegaly present and no masses PALPATION: Yes Soft to palpation and Yes No hepatosplenomegaly present Neuro: COMMON NORMALS: patient oriented x3 SENSORIUM/ORIENTATION: Yes alert Course 2 Vital Signs: Vital signs: Vital Signs Temperature 98.6 F 04/15/24 10:05 Pulse Rate 75 04/15/24 12:30 Respiratory Rate 13 04/15/24 12:30 Blood Pressure 162/67 04/15/24 12:30 Pulse Oximetry 93 04/15/24 12:30 Oxygen Delivery Me thod Room Air 04/15/24 12:30 MDM - Chest Pain Medical Decision Making Patient is initial troponin was 79, 2-hour delta was -12 2-hour troponin was approximately 66, patient received 2 mg morphine and is still having 2 out of 10 chest pain. Patient did ask to be placed in observation due to his recent angiogram and ballooning. Dr. Ameena verduzco was consulted who agreed to place patient observation. Medical Records I reviewed the patient's medical records. Lab Data I reviewed the patient's lab results. 04/15/24 10:28 04/15/24 10:28 Radiology Impressions Chest X-Ray 04/15/24 10:03 IMPRESSION: No acute intrathoracic findings. Laboratory Results WBC 8.29 10^3/uL (3.29-11.43) 04/15/24 10: RBC 2.74 10^6/uL (3.85-5.65) L 04/15/24 10:28 Hgb 9.20 g/dL (11.27-16.99) L 04/15/24 10:28 Hct 27.1 % (37-53) L 04/15/24 10:28 MCV 98.9 fl (82-101) 04/15/24 10:28 MCH 33.6 pg (27-33) H 04/15/24 10:28 MCHC 33.9 g/dL (30-55) 04/15/24 10:28 RDW 13.2 % (12.1-15.1) 04/15/24 10:28 Plt Count 196 10^3/cmm (157-399) 04/15/24 10:28 MPV 10.0 fL (7.4-10.4) 04/15/24 10:28 Neut % (Auto) 73.4 % 04/15/24 10:28 Lymph % (Auto) 16.0 % 04/15/24 10:28 [place] % (Auto) 7.6 % 04/15/24 10:28 Eos % (Auto) 1.8 % 04/15/24 10: Baso % (Auto) 0.7 % 04/15/24 10: Neut # (Auto) 6.08 10^3/uL (1.8-7.7) 04/15/24 10:28 Lymph # (Auto) 1.3 10^3/uL (0.8-4.8) 04/15/24 10:28 [place] # (Auto) 0.6 10^3/uL (0.2-0.9) 04/15/24 10:28 Eos # (Auto) 0.2 10^3/uL (0.0-0.8) 04/15/24 10:28 Baso # (Auto) 0.1 10^3/uL (0.0-0.1) 04/15/24 10:28 Nucleated RBC % (auto) 0 % 04/15/24 10:28 Nucleated RBCs # 0.0 /100WBC 04/15/24 10:28 PT 13.10 SECONDS (12.1-14.9) 04/15/24 10:28 INR 0.96 (0.8-1.2) 04/15/24 10:28 Sodium 136 mmol/L (136-145) 04/15/24 10:28 Potassium 3.1 mmol/L (3.5-5.1) L 04/15/24 10:28 Chloride 98 mmol/L (98-107) 04/15/24 10:28 Carbon Dioxide 28 mmol/L (22-29) 04/15/24 10:28 Anion Gap 13.1 (5-19) 04/15/24 10:28 BUN 13 mg/dL (6-20) 04/15/24 10:28 Creatinine 2.0 mg/dL (0.7-1.2) H 04/15/24 10:28 GFR Calculation 34.9 mL/min (90-130) L 04/15/24 10:28 Glucose 167 mg/dL (65-115) H 04/15/24 10:28 Calculated Osmolality 286 mOsm/kg (285-295) 04/15/24 10:28 Calcium 8.7 mg/dL (8.5-10.5) 04/15/24 10:28 Phosphorus 2.3 mg/dL (2.5-4.5) L 04/15/24 10:28 Magnesium 1.6 mg/dL (1.7-2.3) L 04/15/24 10:28 Total Bilirubin 0.5 mg/dL (0.15-1.2) 04/15/24 10:28 AST 11 U/L (0-40) 04/15/24 10:28 ALT 12 U/L (0-41) 04/15/24 10:28 Alkaline Phosphatase 93 U/L (40-130) 04/15/24 10:28 Troponin T Baseline 79 ng/L (0-15) H 04/15/24 10:28 Troponin T 120 Minute 66.64 ng/L (0-15) H 04/15/24 12:20 Delta Troponin T -12.36 ABS# (0-10) L 04/15/24 12:20 Total Protein 5.0 g/dL (6.6-8.7) L 04/15/24 10:28 Albumin 3.3 g/dL (3.5-5.2) L 04/15/24 10:28 Globulin 1.7 g/dL (1.3-4.6) 04/15/24 10:28 All radiology interpretation(s) finalized by discharge Discharge Plan Discharge Patient Disposition: Placed in Observation Clinical Impression: Chest pain Coding Level of Care Code ED Event Sales Representative for Aaron Irene
[2024-04-15 10:51] LABS: Basophils # 0.1 10^3/uL (0.0-0.1); Basophils % 0.7 %; Eosinophils # 0.2 10^3/uL (0.0-0.8); Eosinophils % 1.8 %; Hematocrit 27.1 % (37-53); Lymphocytes # 1.3 10^3/uL (0.8-4.8); Mean Corpuscular HGB Conc 33.9 g/dL (30-55); Mean Corpuscular Hemoglobin 33.6 pg (27-33); Mean Corpuscular Volume 98.9 fl (82-101); Monocytes # 0.6 10^3/uL (0.2-0.9); Monocytes % 7.6 %; Neutrophils # 6.08 10^3/uL (1.8-7.7); Neutrophils % 73.4 %; Nucleated Red Blood Cells % 0 %; Platelet Count 196 10^3/cmm (157-399); Red Blood Count 2.74 10^6/uL (3.85-5.65); Red Cell Distribution Width 13.2 % (12.1-15.1); White Blood Count 8.29 10^3/uL (3.29-11.43)
[2024-04-15 10:59] LABS: INR 0.96 (0.8-1.2)
[2024-04-15 11:03] LABS: Alanine Aminotransferase 12 U/L (0-41); Albumin Level 3.3 g/dL (3.5-5.2); Alkaline Phosphatase 93 U/L (40-130); Anion Gap 13.1 (5-19); Aspartate Amino Transferase 11 U/L (0-40); Blood Urea Nitrogen 13 mg/dL (6-20); Calcium 8.7 mg/dL (8.5-10.5); Carbon Dioxide 28 mmol/L (22-29); Chloride 98 mmol/L (98-107); Creatinine Clr Calc Pharmacy 44.6368; Globulin 1.7 g/dL (1.3-4.6); Glomerular Filtration Rate 34.9 mL/min (90-130); Glucose 167 mg/dL (65-115); Magnesium 1.6 mg/dL (1.7-2.3); Osmolality Calculated 286 mOsm/kg (285-295); Phosphorus 2.3 mg/dL (2.5-4.5); Potassium 3.1 mmol/L (3.5-5.1); Sodium 136 mmol/L (136-145); Total Bilirubin 0.5 mg/dL (0.15-1.2)
[2024-04-15 11:04] LABS: Troponin(5th) Baseline 79 ng/L (0-15)
[2024-04-15] MEDS: potassium chloride ER 20 mEq Tablet 40 MEQ PO (11:20)
--- NOTE | 2024-04-15 11:22 | PC.NURSE ---
Pt c/o left sided neck arm jaw shoulder pain rated 5. message to dr. mar.
[2024-04-15] MEDS: morphine 4 mg/mL SDV 1 mL 2 MG IVP ×3 (11:30→20:42)
--- NOTE | 2024-04-15 12:03 | ECG_ITS ---
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 [email or web address]
[2024-04-15 12:51] LABS: Troponin 5 2HR 66.64 ng/L (0-15)
[2024-04-15 12:52] LABS: Troponin 5 2HR Delta -12.36 ABS# (0-10)
--- NOTE | 2024-04-15 14:24 | P.HP_ITS ---
Providers/Chief Complaint 2 Admitting Physician: Makayla Lindquist MD Primary Care Provider: Kp Montanez DO Chief Complaint: Chest Pain History of Present Illness Rei Queen II is a 53 year old male with end-stage renal disease on hemodialysis, coronary disease, chronic chest pain, diabetes presented with recurrent chest pain. He describes chest pain as left-sided, sharp, radiating to left arm, shoulder and jaw, no aggravating or relieving factors. He was found to have low blood pressure during dialysis but in ER blood pressure has been stable in 130s. 2 sets of troponins are 79, 66 which is his baseline. He states chest pain relieved with nitroglycerin and IV morphine. Denies any complaint of shortness of breath, palpitations, nausea/vomiting, dizziness. He has a total of 7 stents placed in the last 10 years, history of cardiac tamponade. He does report that the blood sugars have been stable and well- controlled. per discharge summary from 04/05 He had just got angioplasty last week(CFx and RCA).? He was evaluated by cardiology during hospital admission. Troponin baseline was elevated at 102. This is chronically elevated most likely due to ESRF. Serial delta was negative. Patient's pain was worse on deep breathing laying flat and relieved bending forward appearing to be more likely from pericarditis. This was thought to be related to post NSTEMI vs uremic pericarditis. limited echo showed Left ventricular ejection fraction is estimated at 40 %. There appeared to be mid to distal anterior wall and apical hypokinesis. Mild aortic valve stenosis, mean gradient 3.9 mmHg, JCARLOS 1.4 cm squared. Cardiology recommended treatment with colchicine and steroids and was serially re evaluated during admission. With regards to his CAD, it was opined that chest pain is atypical does not appear to be ischemic. Patient was not considered a candidate for further intervention due to already multiple layers of stents, recent balloon angioplasty of the RCA and circumflex stents with excellent angiographic result. possibility of residual residual significant ischemia was considered less likely. For possible small vessel disease, he was on Ranexa. He is on optimal medical regimen for his CAD. He was overall considerd stable from a cardiac standpoint. Discussed with him that the pain of pericarditis would likely take a few weeks to resolve. Review of Systems 2 General: Reports: 10 or more systems reviewed and unremarkable except in HPI and below Medications/Allergies Home Medications Medication Instructions Recorded Confirmed Last Taken Type levothyroxine 88 mcg tablet 88 mcg PO QAM 02/09/21 04/15/24 03/23/24 History atorvastatin 40 mg tablet 40 mg PO QAM #90 tabs 10/25/22 04/15/24 03/23/24 Rx blood-glucose meter,continuous 02/27/23 04/15/24 03/15/23 History (Dexcom G7 [employer]) diphenhydramine HCl 25 mg tablet 50 mg PO DAILY PRN Allergy Symptoms 05/02/23 04/15/24 03/23/24 History (Benadryl Allergy) insulin lispro 100 unit/mL See Rx Instructions .Route .COMPLEX 05/02/23 04/15/24 03/23/24 History subcutaneous pen (Humalog KwikPen (U-100) Insulin) gabapentin 100 mg capsule 100 mg PO BID 07/07/23 04/15/24 03/23/24 History AFO to left #1 ea 07/25/23 04/15/24 Unknown Rx Diabetic Shoes with Custom insoles #1 ea 07/25/23 04/15/24 Unknown Rx nitroglycerin 0.4 mg sublingual 0.4 mg sublingual Q5M PRN Chest 08/27/23 04/15/24 03/31/24 Rx tablet (Nitrostat) Pain #25 tabs isosorbide mononitrate 30 mg See Rx Instructions .Route 10/03/23 04/15/24 03/23/24 Rx tablet,extended release 24 hr .COMPLEX #30 tabs lorazepam 1 mg tablet 1 mg PO Q8H PRN SEVER NAUSEA 10/24/23 04/15/24 03/23/24 History vit B,C-folic ac 800 mcg-zinc 12.5 1 tab PO DAILY 10/29/23 04/15/24 03/23/24 History mg-selen-D3 2,000 unit-vit E tablet (RenaPlex-D) apixaban 2.5 mg tablet (Eliquis) 2.5 mg PO BID #60 tabs 10/30/23 04/15/24 03/23/24 Rx aspirin 81 mg tablet,delayed 81 mg PO DAILY #90 tabs 10/30/23 04/15/24 03/23/24 Rx release clopidogrel 75 mg tablet 75 mg PO DAILY #90 tabs 10/30/23 04/15/24 03/23/24 Rx blood-glucose sensor (Dexcom G7 #9 ea 11/25/23 04/15/24 Unknown Rx Sensor device) bupropion HCl 300 mg 24 hr tablet, 300 mg PO QAM #30 tabs 01/22/24 04/15/24 03/23/24 Rx extended release buspirone 10 mg tablet 10 mg PO BID #60 tabs 01/22/24 04/15/24 03/23/24 Rx fluoxetine 40 mg capsule 40 mg PO QAM #30 caps 01/22/24 04/15/24 03/23/24 Rx tamsulosin 0.4 mg capsule 0.4 mg PO DAILY 03/24/24 04/15/24 Unknown History tizanidine 2 mg tablet 2 mg PO BID 03/24/24 04/15/24 Unknown History pantoprazole 40 mg tablet,delayed 40 mg PO DAILY #30 tabs 03/26/24 04/15/24 Unknown Rx release trazodone 100 mg tablet 300 mg PO BEDTIME PRN insomia 03/31/24 04/15/24 Unknown History prednisone 20 mg tablet 40 mg (2 x 20 mg) PO DAILY 15 days 04/05/24 04/15/24 Unknown Rx #30 tabs colchicine 0.6 mg tablet 0.3 mg (1/2 x 0.6 mg) PO DAILY #60 04/08/24 04/15/24 Unknown Rx tabs nifedipine 30 mg tablet,extended 30 mg PO DAILY #90 tabs 04/08/24 04/15/24 Unknown Rx release ranolazine 1,000 mg 1,000 mg PO BID #60 tabs 04/08/24 04/15/24 Unknown Rx tablet,extended release,12 hr tirzepatide 15 mg/0.5 mL See Rx Instructions .Route 04/08/24 04/15/24 Unknown Rx subcutaneous pen injector .COMPLEX #2 mL (Mounjaro) allopurinol 100 mg tablet 100 mg PO .EVERY OTHER DAY 04/15/24 04/15/24 Unknown History amlodipine 2.5 mg tablet 2.5 mg PO DAILY 04/15/24 04/15/24 Unknown History bumetanide 2 mg tablet 2 mg PO BID 04/15/24 04/15/24 Unknown History dulaglutide 1.5 mg/0.5 mL 1.5 mg SUBCUT Q7D 04/15/24 04/15/24 Unknown History subcutaneous pen injector (Trulicity) hydrocodone 5 mg-acetaminophen 325 1 tab PO Q8H PRN pain 04/15/24 04/15/24 Unknown History mg tablet insulin degludec 200 unit/mL (3 52 unit SUBCUT QAM 04/15/24 04/15/24 Unknown History mL) subcutaneous pen (Tresiba FlexTouch U-200 insulin) morphine 15 mg immediate release 15 mg PO BID PRN Pain 04/15/24 04/15/24 Unknown History tablet prednisolone 5 mg tablet 5 mg PO DAILY 04/15/24 04/15/24 Unknown History sevelamer carbonate 800 mg tablet 800 mg PO TID 04/15/24 04/15/24 Unknown History Allergies Allergy/AdvReac Type Severity Reaction Status Date / Time Iodinated Contrast Media Allergy Severe ALGY-Difficulty Verified 04/10/24 07:10 Breathing iodine Allergy Severe ALGY-Difficulty Verified 04/10/24 07:10 Breathing metoclopramide [From Reglan] Allergy Severe ALGY-Difficulty Verified 04/10/24 07:10 Breathing nalbuphine [From Nubain] Allergy Severe ADR-Diarrhe Verified 04/10/24 07:10 a naproxen [From Naprosyn] Allergy Severe ADR-Vomitin Verified 04/10/24 07:10 g Sulfa (Sulfonamide Allergy Severe ALGY-Difficulty Verified 04/10/24 07:10 Antibiotics) Breathing ketorolac Allergy Intermediate ADR-Nausea Verified 04/10/24 07:10 ondansetron [From Zofran] Allergy Intermediate ADR-Abdominal Verified 04/10/24 07:10 Pain prochlorperazine Allergy Intermediate ADR-Irritab Verified 04/10/24 07:10 [From Compazine] le codeine AdvReac Severe ALGY-Anaphy Verified 04/10/24 07:10 laxis haloperidol [From Haldol] AdvReac Intermediate ADR-Irritab Verified 04/10/24 07:10 le PFSH Acute 2 PFSH: Medical History Elevated troponin Essential hypertension Essential hypertension ESRD (end stage renal disease) Hypertension Psychiatric care 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 mellitus Chronic renal failure Chest pain Chest pain CRF (chronic renal failure) Chronic right SI joint pain Chronic systolic heart failure UTI (urinary tract infection) Peripheral arterial disease PVD (peripheral vascular disease) Worsening angina Angina at rest Chest pain ESRD (end stage renal disease) Uremic encephalopathy Generalized anxiety disorder ESRD (end stage renal disease) D-dimer, elevated Acute on chronic congestive heart failure History of pulmonary embolism Diabetes Acute kidney injury superimposed on CKD GERD (gastroesophageal reflux disease) Alcohol use disorder, moderate, in sustained remission Major depressive disorder, recurrent severe without psychotic features DVT (deep venous thrombosis) (~03/2020) Proximal left subclavian, basilic and brachial veins, started eliquis this stay, felt present prior to admission Chronic kidney disease -baseline Cr appears to be around 1.5 Atherosclerotic heart disease of [place] coronary artery with other forms of angina pectoris hx of CAD with prior stenting of proximal LAD, LCx, RCA Ischemic cardiomyopathy Onychodystrophy Chronic anticoagulation Eliquis Osteoarthritis of spine Hypothyroidism Hypertension Hyperlipidemia Diabetes Depression Anemia Foot drop, left H/O acute myocardial infarction H/O deep venous thrombosis developed compartment syndrome Surgical History Peritoneal dialysis catheter in situ (06/15/21) History of appendectomy 1995 History of excision of mass 06/08/2019: Subcutaneous mass on back History of removal of Port-a-Cath Port-A-Cath in place H/O vasectomy Hx of cholecystectomy History of coronary artery stent placement 5x H/O skin graft History of inguinal hernia repair, bilateral 2000 H/O removal of testicle left H/O colonoscopy (11/14/20) 08/2015 H/O esophagogastroduodenoscopy (11/14/20) 08/2015 Family History Grandfather Cancer skin cancer Parkinson disease Brother Hypertension Father Heart disease Mother Hypertension Stroke Aneurysm Grandmother Aneurysm Other Crohn's disease Denies family history of Anesthesia complication Bleeding disorder Social History Smoking and tobacco/nicotine status: never used tobacco/nicotine Second hand smoke exposure: No Alcohol intake: former Year of sobriety/quit date alcohol: 2016 Former alcohol use details: Only holidays - last use 05.19.2015 Substance/Drug Use: never Adopted: No Caregiver/support person: No Lives independently: Yes Household members: spouse Housing: Apartment Marital status: Number of children: 2 Number of grandchildren: 0 Highest education level completed: High School Graduate service: No Current occupational status: disabled Pets and animals: Yes Pets & animals: dog(s) Leisure activites: games and other Leisure activities details: watching TV Sexually active: Yes Do you think of yourself as: Straight/Heterosexual Current gender identity: Male Shannon/Faith: Mandaeism Special shannon needs: No Agree to transfusion: Yes Vitals/I&O/Wt Last Vital Signs Temp 98.6 F 04/15/24 10:05 Pulse 79 04/15/24 13:30 Resp 16 04/15/24 13:00 BP 135/61 04/15/24 13:30 Pulse Ox 97 04/15/24 13:30 O2 Del Method Room Air 04/15/24 13:30 Weight last 48 hrs Weight 96.8 kg Physical Exam 2 Narrative: He is alert awake oriented x 3, not in acute distress, states pain is 2/10 currently. Chest clear to auscultation bilaterally, previous sternotomy present left-sided Mediport seen. Cardiovascular normal heart sounds no murmurs Abdomen soft nontender nondistended normal bowel sounds Extremities no edema noted bilateral lower extremity Data 04/15/24 10:28 04/15/24 10:28 A&P Assessment and plan (1) Chest pain: (2) Essential hypertension: (3) ESRD (end stage renal disease): (4) Ischemic cardiomyopathy: (5) 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 mellitus: (6) Major depressive disorder, recurrent severe without psychotic features: (7) Pericarditis: Qualifiers: Pericarditis type: unspecified type Chronicity: acute Qualified Code(s): I30.9 - Acute pericarditis, unspecified Plan Rei Queen II is a 53 year old male with end-stage renal disease on hemodialysis, coronary disease, chronic chest pain, PE, diabetes presented with recurrent chest pain. Typical chest pain-will rule out ACS versus uremic pericarditis as per last admission 2 sets of troponins 79, 66 which is at baseline likely due to ESRD. Follow-up 6-hour troponins EKG normal sinus rhythm, no acute ST-T changes Continue cardiac telemetry monitoring Pain relieved with nitroglycerin and IV morphine in ED Hypertension/CAD-continue RECTIFIER OPERATOR amlodipine, nifedipine, Imdur, ranolazine Hyperlipidemia-continue RECTIFIER OPERATOR aspirin, Plavix and atorvastatin Diabetes mellitus-continue RECTIFIER OPERATOR Tresiba and Humalog correction scale Pericarditis-continue RECTIFIER OPERATOR prednisone and allopurinol Pulmonary embolism-continue RECTIFIER OPERATOR Eliquis ESRD on HD-continue RECTIFIER OPERATOR Bumex, sevelamer, RenaPlex Hypothyroidism-continue RECTIFIER OPERATOR levothyroxine Depression-continue RECTIFIER OPERATOR fluoxetine, trazodone ,buspirone and bupropion BPH-continue RECTIFIER OPERATOR Flomax Neuropathy-continue RECTIFIER OPERATOR tizanidine and gabapentin DVT prophylaxis, already on Eliquis GI prophylaxis with IV Pepcid 20 mg twice daily CODE STATUS discussed with patient, he is full code for now Attestations 2 Medical Necessity Statement*: He needs hospitalization not crossing 2 midnights for observation for for typical chest pain with cardiac monitoring and labs Time Spent in Patient Care: 40 minutes Coding Level of Care Code Acute Code for [facility] Diagnoses Chest pain R07.9 Essential hypertension I10 ESRD (end stage renal disease) N18.6 Ischemic cardiomyopathy I25.5 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 mellitus E11.42 Major depressive disorder, recurrent severe without psychotic features F33.2 Acute pericarditis, unspecified type I30.9 Pericarditis type: unspecified type Chronicity: acute Time Spent (min) 40
[2024-04-15] MEDS: sevelamer 800 mg Tablet PO (15:34)
[2024-04-15 16:36] LABS: Glucose Point of Care 150 mg/dL (70-110)
--- NOTE | 2024-04-15 17:32 | ECG_ITS ---
Infor [facility] Test Date: 2024-04-15 Pat Name: Rei Queen Department: Room: 112 Gender: Male Orthopedic Tech: : [id number] Requested By: Fantasma Grubbs Order Number: [id number] Becky MD: Karen Choi M.D. Measurements Intervals [place] Rate: 77 P: 5 W[place]: 171 QRS: -17 QRSD: 98 T: 15 QT: 398 QTc: 452 Interpretive Statements SINUS RHYTHM ANTERIOR MYOCARDIAL INFARCTION , PROBABLY OLD [40+ ms Q WAVE AND/OR ST/T ABNORMALITY IN V3/V4] Compared to ECG 04/15/2024 12:26:07 No significant changes Electronically Signed On 04-15-2024 19:40:28 PATIENT SCHEDULER by Karen Choi M.D. [email or web address]
[2024-04-15] MEDS: tizanidine 4 mg Tablet 2 MG PO (18:30)
[2024-04-15] MEDS: famotidine 20 mg Tablet PO (18:30)
[2024-04-15] MEDS: ranolazine (12HR) 500 mg Tablet 1000 MG PO (18:31)
[2024-04-15] MEDS: gabapentin 100 mg Capsule PO (18:31)
[2024-04-15] MEDS: apixaban 5 mg Tablet 2.5 MG PO (18:31)
[2024-04-15] MEDS: BuSPIRONE 10 mg Tablet PO (18:31)
[2024-04-15] MEDS: bumetanide 1 mg Tablet 2 MG PO (18:31)
[2024-04-15 19:13] LABS: Troponin 5 6HR 75.12 ng/L (0-15); Troponin 5 6HR Delta -3.88 ng/L (0-12)
[2024-04-15] MEDS: trazodone 100 mg Tablet 300 MG PO (20:41)
[2024-04-15 21:01] LABS: Glucose Point of Care 214 mg/dL (70-110)
[2024-04-16] VITALS (9 sets, daily range): BP systolic 141–162; BP diastolic 57–81; PULSE 70–75; RESP 15–25; TEMP 36.5–36.8; O2SAT 92–97
[2024-04-16] MEDS: morphine 4 mg/mL SDV 1 mL 2 MG IVP ×3 (00:44→09:31)
[2024-04-16 03:57] LABS: Basophils # 0.1 10^3/uL (0.0-0.1); Basophils % 1.2 %; Eosinophils # 0.2 10^3/uL (0.0-0.8); Eosinophils % 3.1 %; Hematocrit 27.9 % (37-53); Lymphocytes # 1.7 10^3/uL (0.8-4.8); Lymphocytes % 28.2 %; Mean Platelet Volume 9.8 fL (7.4-10.4); Monocytes # 0.6 10^3/uL (0.2-0.9); Monocytes % 10.4 %; Neutrophils # 3.33 10^3/uL (1.8-7.7); Neutrophils % 56.8 %; Nucleated Red Blood Cells % 0 %; Platelet Count 184 10^3/cmm (157-399); Red Blood Count 2.79 10^6/uL (3.85-5.65); Red Cell Distribution Width 13.2 % (12.1-15.1); White Blood Count 5.86 10^3/uL (3.29-11.43)
[2024-04-16 04:16] LABS: Anion Gap 12.8 (5-19); Blood Urea Nitrogen 19 mg/dL (6-20); Calcium 8.4 mg/dL (8.5-10.5); Carbon Dioxide 29 mmol/L (22-29); Chloride 106 mmol/L (98-107); Glomerular Filtration Rate 22.7 mL/min (90-130); Glucose 132 mg/dL (65-115); Magnesium 1.6 mg/dL (1.7-2.3); Osmolality Calculated 302 mOsm/kg (285-295); Potassium 3.8 mmol/L (3.5-5.1); Sodium 144 mmol/L (136-145)
[2024-04-16] MEDS: levothyroxine 88 mcg Tablet PO (05:08)
[2024-04-16] MEDS: atorvastatin 40 mg Tablet PO (05:08)
[2024-04-16] MEDS: fluoxetine 20 mg Capsule 40 MG PO (05:08)
[2024-04-16] MEDS: buPROPion XL (24 HR) 300 mg Tablet PO (05:08)
[2024-04-16] MEDS: insulin glargine 100 units/1 mL 50 UNIT SUBCUT (06:18)
[2024-04-16 06:20] LABS: Glucose Point of Care 131 mg/dL (70-110)
--- NOTE | 2024-04-16 09:00 | P.CONIM_ITS ---
Providers/Reason For Consult 2 Attending Physician: Makayla Lindquist MD Primary Care Provider: Kp Montanez DO History of Present Illness History of Present Illness Rei Queen II is a 53 year old male Medications/Allergies Home Medications Medication Instructions Recorded Confirmed Last Taken Type levothyroxine 88 mcg tablet 88 mcg PO QAM 02/09/21 04/15/24 03/23/24 History atorvastatin 40 mg tablet 40 mg PO QAM #90 tabs 10/25/22 04/15/24 03/23/24 Rx blood-glucose meter,continuous 02/27/23 04/15/24 03/15/23 History (Dexcom G7 Communication Spec) diphenhydramine HCl 25 mg tablet 50 mg PO DAILY PRN Allergy Symptoms 05/02/23 04/15/24 03/23/24 History (Benadryl Allergy) insulin lispro 100 unit/mL See Rx Instructions .Route .COMPLEX 05/02/23 04/15/24 03/23/24 History subcutaneous pen (Humalog KwikPen (U-100) Insulin) gabapentin 100 mg capsule 100 mg PO BID 07/07/23 04/15/24 03/23/24 History AFO to left #1 ea 07/25/23 04/15/24 Unknown Rx Diabetic Shoes with Custom insoles #1 ea 07/25/23 04/15/24 Unknown Rx nitroglycerin 0.4 mg sublingual 0.4 mg sublingual Q5M PRN Chest 08/27/23 04/15/24 03/31/24 Rx tablet (Nitrostat) Pain #25 tabs isosorbide mononitrate 30 mg See Rx Instructions .Route 10/03/23 04/15/24 03/23/24 Rx tablet,extended release 24 hr .COMPLEX #30 tabs lorazepam 1 mg tablet 1 mg PO Q8H PRN SEVER NAUSEA 10/24/23 04/15/24 03/23/24 History vit B,C-folic ac 800 mcg-zinc 12.5 1 tab PO DAILY 10/29/23 04/15/24 03/23/24 History mg-selen-D3 2,000 unit-vit E tablet (RenaPlex-D) apixaban 2.5 mg tablet (Eliquis) 2.5 mg PO BID #60 tabs 10/30/23 04/15/24 03/23/24 Rx aspirin 81 mg tablet,delayed 81 mg PO DAILY #90 tabs 10/30/23 04/15/24 03/23/24 Rx release clopidogrel 75 mg tablet 75 mg PO DAILY #90 tabs 10/30/23 04/15/24 03/23/24 Rx blood-glucose sensor (Dexcom G7 #9 ea 11/25/23 04/15/24 Unknown Rx Sensor device) bupropion HCl 300 mg 24 hr tablet, 300 mg PO QAM #30 tabs 01/22/24 04/15/24 03/23/24 Rx extended release buspirone 10 mg tablet 10 mg PO BID #60 tabs 01/22/24 04/15/24 03/23/24 Rx fluoxetine 40 mg capsule 40 mg PO QAM #30 caps 01/22/24 04/15/24 03/23/24 Rx tamsulosin 0.4 mg capsule 0.4 mg PO DAILY 03/24/24 04/15/24 Unknown History tizanidine 2 mg tablet 2 mg PO BID 03/24/24 04/15/24 Unknown History pantoprazole 40 mg tablet,delayed 40 mg PO DAILY #30 tabs 03/26/24 04/15/24 Unknown Rx release trazodone 100 mg tablet 300 mg PO BEDTIME PRN insomia 03/31/24 04/15/24 Unknown History prednisone 20 mg tablet 40 mg (2 x 20 mg) PO DAILY 15 days 04/05/24 04/15/24 Unknown Rx #30 tabs colchicine 0.6 mg tablet 0.3 mg (1/2 x 0.6 mg) PO DAILY #60 04/08/24 04/15/24 Unknown Rx tabs nifedipine 30 mg tablet,extended 30 mg PO DAILY #90 tabs 04/08/24 04/15/24 Unknown Rx release ranolazine 1,000 mg 1,000 mg PO BID #60 tabs 04/08/24 04/15/24 Unknown Rx tablet,extended release,12 hr tirzepatide 15 mg/0.5 mL See Rx Instructions .Route 04/08/24 04/15/24 Unknown Rx subcutaneous pen injector .COMPLEX #2 mL (Mounkarthik) allopurinol 100 mg tablet 100 mg PO .EVERY OTHER DAY 04/15/24 04/15/24 Unknown History amlodipine 2.5 mg tablet 2.5 mg PO DAILY 04/15/24 04/15/24 Unknown History bumetanide 2 mg tablet 2 mg PO BID 04/15/24 04/15/24 Unknown History dulaglutide 1.5 mg/0.5 mL 1.5 mg SUBCUT Q7D 04/15/24 04/15/24 Unknown History subcutaneous pen injector (Trulicity) hydrocodone 5 mg-acetaminophen 325 1 tab PO Q8H PRN pain 04/15/24 04/15/24 Unknown History mg tablet insulin degludec 200 unit/mL (3 52 unit SUBCUT QAM 04/15/24 04/15/24 Unknown History mL) subcutaneous pen (Tresiba FlexTouch U-200 insulin) morphine 15 mg immediate release 15 mg PO BID PRN Pain 04/15/24 04/15/24 Unknown History tablet prednisolone 5 mg tablet 5 mg PO DAILY 04/15/24 04/15/24 Unknown History sevelamer carbonate 800 mg tablet 800 mg PO TID 04/15/24 04/15/24 Unknown History Allergies Allergy/AdvReac Type Severity Reaction Status Date / Time Iodinated Contrast Media Allergy Severe ALGY-Difficulty Verified 04/10/24 07:10 Breathing iodine Allergy Severe ALGY-Difficulty Verified 04/10/24 07:10 Breathing metoclopramide [From Reglan] Allergy Severe ALGY-Difficulty Verified 04/10/24 07:10 Breathing nalbuphine [From Nubain] Allergy Severe ADR-Diarrhe Verified 04/10/24 07:10 a naproxen [From Naprosyn] Allergy Severe ADR-Vomitin Verified 04/10/24 07:10 g Sulfa (Sulfonamide Allergy Severe ALGY-Difficulty Verified 04/10/24 07:10 Antibiotics) Breathing ketorolac Allergy Intermediate ADR-Nausea Verified 04/10/24 07:10 ondansetron [From Zofran] Allergy Intermediate ADR-Abdominal Verified 04/10/24 07:10 Pain prochlorperazine Allergy Intermediate ADR-Irritab Verified 04/10/24 07:10 [From Compazine] le codeine AdvReac Severe ALGY-Anaphy Verified 04/10/24 07:10 laxis haloperidol [From Haldol] AdvReac Intermediate ADR-Irritab Verified 04/10/24 07:10 le Current Medications Generic Name Dose Route Start Last Admin Trade Name Freq PRN Reason Stop Dose Admin Apixaban 2.5 mg 04/15/24 18:00 04/15/24 18:31 Apixaban 5 Mg Tablet PO 2.5 mg BID RANDY Administration Atorvastatin Calcium 40 mg 04/16/24 06:00 04/16/24 05:08 Atorvastatin 40 Mg Tablet PO 40 mg QAM RANDY Administration Bumetanide 2 mg 04/15/24 18:00 04/15/24 18:31 Bumetanide 1 Mg Tablet PO 2 mg BID RANDY Administration Bupropion HCl 300 mg 04/16/24 06:00 04/16/24 05:08 Bupropion Xl (24 Hr) 300 Mg Tablet PO 300 mg QAM [facility] Administration Buspirone HCl 10 mg 04/15/24 18:00 04/15/24 18:31 Buspirone 10 Mg Tablet PO 10 mg BID RANDY Administration Famotidine 20 mg 04/15/24 18:00 04/15/24 18:30 Famotidine 20 Mg Tablet PO 20 mg BID RANDY Administration Fluoxetine HCl 40 mg 04/16/24 06:00 04/16/24 05:08 Fluoxetine 20 Mg Capsule PO 40 mg QAM [facility] Administration Gabapentin 100 mg 04/15/24 18:00 04/15/24 18:31 Gabapentin 100 Mg Capsule PO 100 mg BID [facility] Administration Insulin Glargine 50 unit 04/16/24 06:00 04/16/24 06:18 Insulin Glargine 100 Units/1 Ml SUBCUT 50 unit QAM [facility] Administration Levothyroxine Sodium 88 mcg 04/16/24 06:00 04/16/24 05:08 Levothyroxine 88 Mcg Tablet PO 88 mcg QAM [facility] Administration Morphine Sulfate 2 mg 04/15/24 14:39 04/16/24 05:13 Morphine 4 Mg/Ml Sdv 1 Ml IVP 2 mg Q4H PRN Administration SEVERE PAIN Ranolazine 1,000 mg 04/15/24 18:00 04/15/24 18:31 Ranolazine (12hr) 500 Mg Tablet PO 1,000 mg BID RANDY Administration Sevelamer Carbonate 800 mg 04/15/24 15:00 04/15/24 20:54 Sevelamer 800 Mg Tablet PO Not Given TID RANDY Tizanidine HCl 2 mg 04/15/24 18:00 04/15/24 18:30 Tizanidine 4 Mg Tablet PO 2 mg BID RANDY Administration Trazodone HCl 300 mg 04/15/24 14:48 04/15/24 20:41 Trazodone 100 Mg Tablet PO 300 mg BEDTIME PRN Administration insomia PFSH Acute 2 PFSH: Medical History Elevated troponin Essential hypertension Essential hypertension ESRD (end stage renal disease) Hypertension Psychiatric care 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 mellitus Chronic renal failure Chest pain Chest pain CRF (chronic renal failure) Chronic right SI joint pain Chronic systolic heart failure UTI (urinary tract infection) Peripheral arterial disease PVD (peripheral vascular disease) Worsening angina Angina at rest Chest pain ESRD (end stage renal disease) Uremic encephalopathy Generalized anxiety disorder ESRD (end stage renal disease) D-dimer, elevated Acute on chronic congestive heart failure History of pulmonary embolism Diabetes Acute kidney injury superimposed on CKD GERD (gastroesophageal reflux disease) Alcohol use disorder, moderate, in sustained remission Major depressive disorder, recurrent severe without psychotic features DVT (deep venous thrombosis) (~03/2020) Proximal left subclavian, basilic and brachial veins, started eliquis this stay, felt present prior to admission Chronic kidney disease -baseline Cr appears to be around 1.5 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 with other forms of angina pectoris hx of CAD with prior stenting of proximal LAD, LCx, RCA Ischemic cardiomyopathy Onychodystrophy Chronic anticoagulation Eliquis Osteoarthritis of spine Hypothyroidism Hypertension Hyperlipidemia Diabetes Depression Anemia Foot drop, left H/O acute myocardial infarction H/O deep venous thrombosis developed compartment syndrome Surgical History Peritoneal dialysis catheter in situ (06/15/21) History of appendectomy 1995 History of excision of mass 06/08/2019: Subcutaneous mass on back History of removal of Port-a-Cath Port-A-Cath in place H/O vasectomy Hx of cholecystectomy History of coronary artery stent placement 5x H/O skin graft History of inguinal hernia repair, bilateral 2000 H/O removal of testicle left H/O colonoscopy (11/14/20) 08/2015 H/O esophagogastroduodenoscopy (11/14/20) 08/2015 Family History Grandfather Cancer skin cancer Parkinson disease Brother Hypertension Father Heart disease Mother Hypertension Stroke Aneurysm Grandmother Aneurysm Other Crohn's disease Denies family history of Anesthesia complication Bleeding disorder Social History Smoking and tobacco/nicotine status: never used tobacco/nicotine Second hand smoke exposure: No Alcohol intake: former Year of sobriety/quit date alcohol: 2016 Former alcohol use details: Only holidays - last use 05.19.2015 Substance/Drug Use: never Adopted: No Caregiver/support person: No Lives independently: Yes Household members: spouse Housing: Apartment Marital status: Number of children: 2 Number of grandchildren: 0 Highest education level completed: High School Graduate service: No Current occupational status: disabled Pets and animals: Yes Pets & animals: dog(s) Leisure activites: games and other Leisure activities details: watching TV Sexually active: Yes Do you think of yourself as: Straight/Heterosexual Current gender identity: Male Shannon/Sikh: Yazdanism Special shannon needs: No Agree to transfusion: Yes Vitals/I&O/Wt Last Vital Signs Temp 97.8 F 04/16/24 07:22 Pulse 72 04/16/24 07:22 Resp 15 04/16/24 07:22 BP 162/81 04/16/24 07:22 Pulse Ox 96 04/16/24 07:22 O2 Del Method Room Air 04/16/24 07:22 04/15/24 04/16/24 04/16/24 22:59 06:59 14:59 Intake Total 730 / 730 Output Total 500 / 500 650 / 1150 Balance 230 / 230 -650 / -420 Weight last 48 hrs Weight 213 lb 6.519 oz Weight 213 lb 6.519 oz Weight 213 lb 6.519 oz Data 04/16/24 03:44 04/16/24 03:44 Coding Level of Care Code Acute Code for Chg Fwd
[2024-04-16] MEDS: isosorbide mononitrate ER 30 mg Tablet PO (09:16)
[2024-04-16] MEDS: gabapentin 100 mg Capsule PO (09:17)
[2024-04-16] MEDS: aspirin 81 mg EC Tablet PO (09:17)
[2024-04-16] MEDS: colchicine 0.6 mg Tablet 0.3 MG PO (09:17)
[2024-04-16] MEDS: predniSONE 20 mg Tablet 40 MG PO (09:17)
[2024-04-16] MEDS: magnesium oxide 400 mg tablet PO (09:17)
[2024-04-16] MEDS: amlodipine 5 mg Tablet 2.5 MG PO (09:18)
[2024-04-16] MEDS: ranolazine (12HR) 500 mg Tablet 1000 MG PO (09:18)
[2024-04-16] MEDS: potassium chloride ER 20 mEq Tablet 40 MEQ PO (09:18)
[2024-04-16] MEDS: clopidogrel 75 mg Tablet PO (09:19)
[2024-04-16] MEDS: bumetanide 1 mg Tablet 2 MG PO (09:20)
[2024-04-16] MEDS: tizanidine 4 mg Tablet 2 MG PO (09:20)
[2024-04-16] MEDS: tamsulosin 0.4 mg Capsule PO (09:20)
[2024-04-16] MEDS: BuSPIRONE 10 mg Tablet PO (09:20)
[2024-04-16] MEDS: NIFEdipine ER (24 hr) 30 mg Tablet PO (09:21)
[2024-04-16] MEDS: apixaban 5 mg Tablet 2.5 MG PO (09:21)
[2024-04-16] MEDS: allopurinol 100 mg Tablet PO (09:22)
[2024-04-16] MEDS: famotidine 20 mg Tablet PO (09:22)
[2024-04-16] MEDS: sevelamer 800 mg Tablet PO (09:22)
--- NOTE | 2024-04-16 11:19 | P.DS_ITS ---
Discharge Providers Date of Admission: 04/15/24 14:16 Date of Discharge: April 16, 2024 Attending Provider at Admission: Makayla Lindquist MD Attending Provider at Discharge: Makayla Lindquist MD Primary Care Provider: Kp Montanez DO Diagnoses at Discharge Discharge Diagnosis (1) Chest pain: Status: Acute (2) Essential hypertension: Status: Acute (3) ESRD (end stage renal disease): Status: Acute (4) Ischemic cardiomyopathy: Status: Acute (5) 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 mellitus: Status: Acute (6) Major depressive disorder, recurrent severe without psychotic features: Status: Acute (7) Pericarditis: Status: Acute Qualifiers: Pericarditis type: unspecified type Chronicity: acute Qualified Code(s): I30.9 - Acute pericarditis, unspecified Reason for Visit Reason for Visit: Chest Pain Brief History: Rei Queen II is a 53 year old male with end-stage renal disease on hemodialysis, coronary disease, chronic chest pain, diabetes presented with recurrent chest pain. He describes chest pain as left-sided, sharp, radiating to left arm, shoulder and jaw, no aggravating or relieving factors. He was found to have low blood pressure during dialysis but in ER blood pressure has been stable in 130s. 2 sets of troponins are 79, 66 which is his baseline. He states chest pain relieved with nitroglycerin and IV morphine. Denies any complaint of shortness of breath, palpitations, nausea/vomiting, dizziness. He has a total of 7 stents placed in the last 10 years, history of cardiac tamponade. He does report that the blood sugars have been stable and well- controlled. per discharge summary from 04/05 He had just got angioplasty last week(CFx and RCA).? He was evaluated by cardiology during hospital admission. Troponin baseline was elevated at 102. This is chronically elevated most likely due to ESRF. Serial delta was negative. Patient's pain was worse on deep breathing laying flat and relieved bending forward appearing to be more likely from pericarditis. This was thought to be related to post NSTEMI vs uremic pericarditis. limited echo showed Left ventricular ejection fraction is estimated at 40 %. There appeared to be mid to distal anterior wall and apical hypokinesis. Mild aortic valve stenosis, mean gradient 3.9 mmHg, JCARLOS 1.4 cm squared. Cardiology recommended treatment with colchicine and steroids and was serially re evaluated during admission. With regards to his CAD, it was opined that chest pain is atypical does not appear to be ischemic. Patient was not considered a candidate for further intervention due to already multiple layers of stents, recent balloon angioplasty of the RCA and circumflex stents with excellent angiographic result. possibility of residual residual significant ischemia was considered less likely. For possible small vessel disease, he was on Ranexa. He is on optimal medical regimen for his CAD. He was overall considerd stable from a cardiac standpoint. Discussed with him that the pain of pericarditis would likely take a few weeks to resolve. Hospital Course Hospital Course He was monitored in [facility] overnight for chest pain. Seen him at bedside this morning, states chest pain has been improved since admission but still has mild chest pain intermittently. 3 sets of troponins were 79, 66, 75 at baseline. E KG was no acute ST-T changes, normal sinus rhythm. Looking at the past records he has been having intermittent chest pain. Cardiology consulted, recommended optimization of medical management. And follow-up with cardiology as outpatient. He is medically stable to be discharged home today. Physical Exam Narrative: He is alert awake oriented x 3, not in acute distress, states pain is 2/10 currently. Chest clear to auscultation bilaterally, previous sternotomy present left-sided Mediport seen. Cardiovascular normal heart sounds no murmurs Abdomen soft nontender nondistended normal bowel sounds Extremities no edema noted bilateral lower extremity Discharge Data Studies Completed and Pending Completed Studies During Hospitalization Category Date Time Status XR chest 1V portable [id number] Stat Exams 04/15/24 10:03 Completed Radiology Impressions Chest X-Ray 04/15/24 10:03 IMPRESSION: No acute intrathoracic findings. Laboratory Results WBC 5.86 10^3/uL (3.29-11.43) 04/16/24 03:44 RBC 2.79 10^6/uL (3.85-5.65) L 04/16/24 03:44 Hgb 9.20 g/dL (11.27-16.99) L 04/16/24 03:44 Hct 27.9 % (37-53) L 04/16/24 03:44 MCV 100.0 fl (82-101) 04/16/24 03:44 MCH 33.0 pg (27-33) 04/16/24 03:44 MCHC 33.0 g/dL (30-55) 04/16/24 03:44 RDW 13.2 % (12.1-15.1) 04/16/24 03:44 Plt Count 184 10^3/cmm (157-399) 04/16/24 03:44 MPV 9.8 fL (7.4-10.4) 04/16/24 03:44 Neut % (Auto) 56.8 % 04/16/24 03:44 Lymph % (Auto) 28.2 % 04/16/24 03:44 [place] % (Auto) 10.4 % 04/16/24 03:44 Eos % (Auto) 3.1 % 04/16/24 03:44 Baso % (Auto) 1.2 % 04/16/24 03:44 Neut # (Auto) 3.33 10^3/uL (1.8-7.7) 04/16/24 03:44 Lymph # (Auto) 1.7 10^3/uL (0.8-4.8) 04/16/24 03:44 [place] # (Auto) 0.6 10^3/uL (0.2-0.9) 04/16/24 03:44 Eos # (Auto) 0.2 10^3/uL (0.0-0.8) 04/16/24 03:44 Baso # (Auto) 0.1 10^3/uL (0.0-0.1) 04/16/24 03:44 Nucleated RBC % (auto) 0 % 04/16/24 03:44 Nucleated RBCs # 0.0 /100WBC 04/16/24 03:44 PT 13.10 SECONDS (12.1-14.9) 04/15/24 10:28 INR 0.96 (0.8-1.2) 04/15/24 10:28 Sodium 144 mmol/L (136-145) 04/16/24 03:44 Potassium 3.8 mmol/L (3.5-5.1) 04/16/24 03:44 Chloride 106 mmol/L (98-107) 04/16/24 03:44 Carbon Dioxide 29 mmol/L (22-29) 04/16/24 03:44 Anion Gap 12.8 (5-19) 04/16/24 03:44 BUN 19 mg/dL (6-20) 04/16/24 03:44 Creatinine 2.9 mg/dL (0.7-1.2) H 04/16/24 03:44 GFR Calculation 22.7 mL/min (90-130) L 04/16/24 03:44 Glucose 132 mg/dL (65-115) H 04/16/24 03:44 POC Glucose 131 mg/dL (70-110) H 04/16/24 06:17 Calculated Osmolality 302 mOsm/kg (285-295) H 04/16/24 03:44 Calcium 8.4 mg/dL (8.5-10.5) L 04/16/24 03:44 Phosphorus 2.3 mg/dL (2.5-4.5) L 04/15/24 10:28 Magnesium 1.6 mg/dL (1.7-2.3) L 04/16/24 03:44 Total Bilirubin 0.5 mg/dL (0.15-1.2) 04/15/24 10:28 AST 11 U/L (0-40) 04/15/24 10:28 ALT 12 U/L (0-41) 04/15/24 10:28 Alkaline Phosphatase 93 U/L (40-130) 04/15/24 10:28 Troponin T Baseline 79 ng/L (0-15) H 04/15/24 10:28 Troponin T 120 Minute 66.64 ng/L (0-15) H 04/15/24 12:20 Delta Troponin T -12.36 ABS# (0-10) L 04/15/24 12:20 Troponin T Hi Sens 6Hr 75.12 ng/L (0-15) H 04/15/24 18:16 Troponin T Hi Sens 6Hr Delta -3.88 ng/L (0-12) L 04/15/24 18:16 Total Protein 5.0 g/dL (6.6-8.7) L 04/15/24 10:28 Albumin 3.3 g/dL (3.5-5.2) L 04/15/24 10:28 Globulin 1.7 g/dL (1.3-4.6) 04/15/24 10:28 Vitals Last Vital Signs Temp 97.8 F 04/16/24 07:22 Pulse 72 04/16/24 07:22 Resp 18 04/16/24 09:31 BP 162/81 04/16/24 07:22 Pulse Ox 97 04/16/24 09:31 O2 Del Method Room Air 04/16/24 07:22 Discharge Plan Discharge Patient Disposition: Home Condition: Stable Prescriptions: Continued nifedipine 30 mg tablet extended release 30 mg PO DAILY Qty: 90 3RF ranolazine 1,000 mg tablet extended release 12 hr 1,000 mg PO BID Qty: 60 1RF colchicine 0.6 mg tablet 0.3 mg PO DAILY Qty: 60 0RF bupropion HCl 300 mg tablet extended release 24 hr 300 mg PO QAM Qty: 30 2RF buspirone 10 mg tablet 10 mg PO BID Qty: 60 2RF fluoxetine 40 mg capsule 40 mg PO QAM Qty: 30 2RF atorvastatin 40 mg tablet 40 mg PO QAM Qty: 90 2RF nitroglycerin [Nitrostat] 0.4 mg tablet, sublingual 0.4 mg SUBLINGUAL Q5M PRN (Reason: Chest Pain) Qty: 25 2RF Rx Instructions: do not exceed 3 doses per episode Mounjaro 15 mg/0.5 mL pen injector See Rx Instructions .ROUTE .COMPLEX Qty: 2 2RF Dose Instruction: inject 15mg (0.5ml) SUBCUTANEOUSLY EVERY 7 DAYS Rx Instructions: inject 15mg (0.5ml) SUBCUTANEOUSLY EVERY 7 DAYS levothyroxine 88 mcg tablet 88 mcg PO QAM gabapentin 100 mg capsule 100 mg PO BID isosorbide mononitrate 30 mg tablet extended release 24 hr See Rx Instructions .ROUTE .COMPLEX Qty: 30 1RF Rx Instructions: Take 30 mg daily, do not take on dialysis days lorazepam 1 mg Tablet 1 mg PO Q8H PRN (Reason: SEVER NAUSEA) tizanidine 2 mg tablet 2 mg PO BID tamsulosin 0.4 mg capsule 0.4 mg PO DAILY pantoprazole 40 mg Tablet,Delayed Release (Dr/Ec) 40 mg PO DAILY Qty: 30 0RF trazodone 100 mg tablet 300 mg PO BEDTIME PRN (Reason: insomia ) prednisone 20 mg Tablet 40 mg PO DAILY 15 Days Qty: 30 0RF diphenhydramine HCl [Benadryl Allergy] 25 mg Tablet 50 mg PO DAILY PRN (Reason: Allergy Symptoms) insulin lispro [Humalog KwikPen Insulin] 100 unit/mL insulin pen See Rx Instructions .ROUTE .COMPLEX Rx Instructions: Sliding scale subcutaneously twice a day as needed. RenaPlex-D 800 mcg-12.5 mg -2,000 unit tablet 1 tab PO DAILY aspirin 81 mg Tablet,Delayed Release (Dr/Ec) 81 mg PO DAILY Qty: 90 3RF Eliquis 2.5 mg tablet 2.5 mg PO BID Qty: 60 2RF clopidogrel 75 mg tablet 75 mg PO DAILY Qty: 90 4RF amlodipine 2.5 mg Tablet 2.5 mg PO DAILY allopurinol 100 mg Tablet 100 mg PO .EVERY OTHER DAY morphine 15 mg Tablet 15 mg PO BID PRN (Reason: Pain) prednisolone 5 mg Tablet 5 mg PO DAILY sevelamer carbonate 800 mg Tablet 800 mg PO TID Rx Instructions: must administer with a meal/food Trulicity 1.5 mg/0.5 mL Pen Injector 1.5 mg SUBCUT Q7D hydrocodone-acetaminophen 5-325 mg tablet 1 tab PO Q8H PRN (Reason: pain) insulin degludec [Tresiba FlexTouch U-200] 200 unit/mL (3 mL) insulin pen 52 unit SUBCUT QAM bumetanide 2 mg tablet 2 mg PO BID No Action (DME) Diabetic Shoes with Custom insoles See Rx Instructions .Route .MEDSUPPLY Qty: 1 0RF Rx Instructions: As directed (DME) AFO to left See Rx Instructions .Route .MEDSUPPLY Qty: 1 0RF Rx Instructions: As directed by [facility] (DME) Dexcom G7 Sensor Device See Rx Instructions .ROUTE .COMPLEX Qty: 9 1RF Dose Instruction: CHANGE every 10 DAYS Rx Instructions: CHANGE every 10 DAYS (DME) Dexcom G7 [employer] [facility] [place] MISCELLANEOUS Discharge Orders: Discharge Order (Routine); Ordered 04/16/24 Ordered By: Makayla Lindquist Referrals: Kp Montanez DO [Primary Care Provider] - Amalia Mccain FNP [Nurse Practitioner] - 04/27/24 Discharge Diet: Cardiac Discharge Activity: Increase activity as tolerated Patient Instructions: Opioid Safety Discharge Attestations Time Spent in Discharge Care*: less than 30 min Status at Discharge: Cognitive status at discharge: cognitively intact , Behavioral status at discharge: cooperative and independent in ADL's , Quality Metrics Clinical Quality Measures [ No reported AMI, CVA or VTE this stay] Coding Level of Care Code Acute Code for Chg Fwd Diagnoses Chest pain R07.9 Essential hypertension I10 ESRD (end stage renal disease) N18.6 Ischemic cardiomyopathy I25.5 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 mellitus E11.42 Major depressive disorder, recurrent severe without psychotic features F33.2 Acute pericarditis, unspecified type I30.9 Pericarditis type: unspecified type Chronicity: acute Time Spent (min) 15
[2024-04-16 12:00] LABS: Glucose Point of Care 138 mg/dL (70-110)
--- NOTE | 2024-04-16 14:24 | PC.NURSE ---
discharge instructions given and explained.pt verb understanding of instructions.discharged via w/c to exit at 13[address] pt home.
== END 2024-04-16 13:30 | disposition home or self-care (01) ==
LOC: ER 13:34 → CSU 14:21
PROVIDERS: Admitting Provider Internal Medicine; Emergency Provider Emergency Medicine; PCP Internal Medicine; Visit Provider Internal Medicine
DX: R07.9 Chest pain, unspecified (principal); E11.22 Type 2 diabetes mellitus with diabetic chronic kidney disease; I12.9 Hypertensive chronic kidney disease with stage 1 through stage 4 chronic kidney disease, or unspecified chronic kidney disease; N18.6 End stage renal disease; I25.5 Ischemic cardiomyopathy; E11.42 Type 2 diabetes mellitus with diabetic polyneuropathy; F33.2 Major depressive disorder, recurrent severe without psychotic features; I30.9 Acute pericarditis, unspecified; Z86.711 Personal history of pulmonary embolism; Z86.718 Personal history of other venous thrombosis and embolism; E03.9 Hypothyroidism, unspecified; Z79.4 Long term (current) use of insulin
CPT/HCPCS: 36416; 36591; 71045; 80048; 80053; 82962; 83735; 84100; 84484; 85025; 85610; 93005; 94664; 96372; 96374; 99285; G0378; J1642; J1815; J2270; J7512

== ENCOUNTER 2024-04-18 06:47 | Emergency (ER) | payer MEDICARE, SELFPAY ==
[2024-03-20 13:31] VITALS: BP 125/53; BMI 35.0
[2024-04-18] VITALS (7 sets, daily range): BP systolic 136–170; BP diastolic 62–81; PULSE 76–119; RESP 17–20; TEMP 36.7; O2SAT 92–96
--- NOTE | 2024-04-18 06:56 | ECG_ITS ---
howsimple Test Date: 2024-04-18 Pat Name: Rei Queen Department: Room: Gender: Male [employer]: : [id number] Requested By: Timo Hart Order Number: [id number] Becky MD: Garrison Mckinney M.D. Measurements Intervals [place] Rate: 81 P: 3 IA: 151 QRS: 15 QRSD: 114 T: 46 QT: 397 QTc: 462 Interpretive Statements SINUS RHYTHM POSSIBLE ANTERIOR MYOCARDIAL INFARCTION , PROBABLY OLD [30 ms Q WAVE IN V3/V4, OR R < 0.2 mV IN V4] INTERPRETATION BASED ON A DEFAULT AGE OF 40 YEARS Compared to ECG 04/15/2024 17:32:21 No significant changes Electronically Signed On 04-19-2024 18:52:52 LICENSED VOCATIONAL NURSE by Garrison Mckinney M.D. [email or web address]
--- NOTE | 2024-04-18 06:56 | XRR_ITS ---
PROCEDURE INFORMATION: Exam: XR Chest Exam date and time: 04/18/2024 7:08 AM Age: 53 years old Clinical indication: Pain; Chest pressure; Prior surgery; Surgery date: 6+ months; Surgery type: Med port-left side, heart surgery; Additional info: Chest pain TECHNIQUE: Imaging protocol: Radiologic exam of the chest. Views: 1 view. COMPARISON: CR (CHEST, ) 04/15/2024 10:32 AM FINDINGS: Tubes, catheters and devices: Port-A-Cath terminates mid SVC. Lungs: Unremarkable. No consolidation. Pleural spaces: Unremarkable. No pleural effusion. No pneumothorax. Heart/Mediastinum: Mild cardiac enlargement. Query CABG. Vasculature: Stent in the medial left upper arm redemonstrated. Bones/joints: Unremarkable. XR/XR chest 1V portable [id number] IMPRESSION: No acute chest pathology identified.
--- NOTE | 2024-04-18 06:58 | ED_ITS ---
HPI - Chest Pain 2 General: Chief Complaint: Chest Pain Stated Complaint: CHEST PAIN Time Seen by Provider: 04/18/24 06:56 History of Present Illness: 53-year-old male presents to the emergen cy room. He has end-stage renal disease he is on hemodialysis Saturday and Saturdays. He states he woke up with chest pain again this morning. He has had 3 hospitalizations this month for chest pain. See copied portion of the previous discharge summary from 1128 2 days ago patient at the end of this HPI. This morning while he was in bed at around 430. He states it is worse when he takes a deep breath or leans forward its better when he is either laying down or semireclined. He has not noticed anything else that exacerbates or relieves it. He does not particularly been short of breath. He has a total of 7 stents placed in the last 10 years, history of cardiac tamponade. He does report that the blood sugars have been stable and well- controlled. per discharge summary from 04/05 He had just got angioplasty last week(CFx and RCA).? He was evaluated by cardiology during hospital admission. Troponin baseline was elevated at 102. This is chronically elevated most likely due to ESRF. Serial delta was negative. Patient's pain was worse on deep breathing laying flat and relieved bending forward appearing to be more likely from pericarditis. This was thought to be related to post NSTEMI vs uremic pericarditis. limited echo showed Left ventricular ejection fraction is estimated at 40 %. There appeared to be mid to distal anterior wall and apical hypokinesis. Mild aortic valve stenosis, mean gradient 3.9 mmHg, JCARLOS 1.4 cm squared. Cardiology recommended treatment with colchicine and steroids and was serially re evaluated during admission. With regards to his CAD, it was opined that chest pain is atypical does not appear to be ischemic. Patient was not considered a candidate for further intervention due to already multiple layers of stents, recent balloon angioplasty of the RCA and circumflex stents with excellent angiographic result. possibility of residual residual significant ischemia was considered less likely. For possible small vessel disease, he was on Ranexa. He is on optimal medical regimen for his CAD. He was overall considerd stable from a cardiac standpoint. Discussed with him that the pain of pericarditis would likely take a few weeks to resolve. Associated symptoms: Deny abdominal pain, dyspnea or fever(s) Related Data Home Medications Medication Instructions Recorded Confirmed levothyroxine 88 mcg tablet 88 mcg PO QAM 02/09/21 04/18/24 blood-glucose meter,continuous 02/27/23 04/18/24 (Dexcom G7 Noc Engineer) diphenhydramine HCl 25 mg tablet 50 mg PO DAILY PRN Allergy Symptoms 05/02/23 04/18/24 (Benadryl Allergy) insulin lispro 100 unit/mL See Rx Instructions .Route .COMPLEX 05/02/23 04/18/24 subcutaneous pen (Humalog KwikPen (U-100) Insulin) gabapentin 100 mg capsule 100 mg PO BID 07/07/23 04/18/24 vit B,C-folic ac 800 mcg-zinc 12.5 1 tab PO DAILY 10/29/23 04/18/24 mg-selen-D3 2,000 unit-vit E tablet (RenaPlex-D) tamsulosin 0.4 mg capsule 0.4 mg PO DAILY 03/24/24 04/18/24 tizanidine 2 mg tablet 2 mg PO BID 03/24/24 04/18/24 trazodone 100 mg tablet 300 mg PO BEDTIME PRN insomia 03/31/24 04/18/24 bumetanide 2 mg tablet 2 mg PO BID 04/15/24 04/18/24 hydrocodone 5 mg-acetaminophen 325 1 tab PO Q8H PRN pain 04/15/24 04/18/24 mg tablet sevelamer carbonate 800 mg tablet 800 mg PO TID 04/15/24 04/18/24 Previous Rx's Medication Instructions Recorded atorvastatin 40 mg tablet 40 mg PO QAM #90 tabs 10/25/22 AFO to left #1 ea 07/25/23 Diabetic Shoes with Custom insoles #1 ea 07/25/23 nitroglycerin 0.4 mg sublingual 0.4 mg sublingual Q5M PRN Chest 08/27/23 tablet (Nitrostat) Pain #25 tabs isosorbide mononitrate 30 mg See Rx Instructions .Route 10/03/23 tablet,extended release 24 hr .COMPLEX #30 tabs apixaban 2.5 mg tablet (Eliquis) 2.5 mg PO BID #60 tabs 10/30/23 aspirin 81 mg tablet,delayed 81 mg PO DAILY #90 tabs 10/30/23 release blood-glucose sensor (Dexcom G7 #9 ea 11/25/23 Sensor device) bupropion HCl 300 mg 24 hr tablet, 300 mg PO QAM #30 tabs 01/22/24 extended release buspirone 10 mg tablet 10 mg PO BID #60 tabs 01/22/24 fluoxetine 40 mg capsule 40 mg PO QAM #30 caps 01/22/24 pantoprazole 40 mg tablet,delayed 40 mg PO DAILY #30 tabs 03/26/24 release prednisone 20 mg tablet 40 mg (2 x 20 mg) PO DAILY 15 days 04/05/24 #30 tabs colchicine 0.6 mg tablet 0.3 mg (1/2 x 0.6 mg) PO DAILY #60 04/08/24 tabs nifedipine 30 mg tablet,extended 30 mg PO DAILY #90 tabs 04/08/24 release ranolazine 1,000 mg 1,000 mg PO BID #60 tabs 04/08/24 tablet,extended release,12 hr tirzepatide 15 mg/0.5 mL See Rx Instructions .Route 04/08/24 subcutaneous pen injector .COMPLEX #2 mL (Mounjaro) Allergies Allergy/AdvReac Type Severity Reaction Status Date / Time Iodinated Contrast Media Allergy Severe ALGY-Difficulty Verified 04/10/24 07:10 Breathing iodine Allergy Severe ALGY-Difficulty Verified 04/10/24 07:10 Breathing metoclopramide [From Reglan] Allergy Severe ALGY-Difficulty Verified 04/10/24 07:10 Breathing nalbuphine [From Nubain] Allergy Severe ADR-Diarrhe Verified 04/10/24 07:10 a naproxen [From Naprosyn] Allergy Severe ADR-Vomitin Verified 04/10/24 07:10 g Sulfa (Sulfonamide Allergy Severe ALGY-Difficulty Verified 04/10/24 07:10 Antibiotics) Breathing ketorolac Allergy Intermediate ADR-Nausea Verified 04/10/24 07:10 ondansetron [From Zofran] Allergy Intermediate ADR-Abdominal Verified 04/10/24 07:10 Pain prochlorperazine Allergy Intermediate ADR-Irritab Verified 04/10/24 07:10 [From Compazine] le codeine AdvReac Severe ALGY-Anaphy Verified 04/10/24 07:10 laxis haloperidol [From Haldol] AdvReac Intermediate ADR-Irritab Verified 04/10/24 07:10 le Review of Systems 2 Const: Denies: fever(s) or chills Card: Denies: chest pain Resp: Denies: dyspnea GI: Denies: abdominal pain : Denies: dysuria, urinary frequency or urinary urgency Musc: Denies: neck pain or back pain Skin/Breast: Denies: rash PFSH ED 2 PFSH: Medical History Pericarditis Elevated troponin Essential hypertension Essential hypertension ESRD (end stage renal disease) Hypertension Psychiatric care 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 mellitus Chronic renal failure Chest pain Chest pain CRF (chronic renal failure) Chronic right SI joint pain Chronic systolic heart failure UTI (urinary tract infection) Peripheral arterial disease PVD (peripheral vascular disease) Worsening angina Angina at rest Chest pain ESRD (end stage renal disease) Uremic encephalopathy Generalized anxiety disorder ESRD (end stage renal disease) D-dimer, elevated Acute on chronic congestive heart failure History of pulmonary embolism Diabetes Acute kidney injury superimposed on CKD GERD (gastroesophageal reflux disease) Alcohol use disorder, moderate, in sustained remission Major depressive disorder, recurrent severe without psychotic features DVT (deep venous thrombosis) (~03/2020) Proximal left subclavian, basilic and brachial veins, started eliquis this stay, felt present prior to admission Chronic kidney disease -baseline Cr appears to be around 1.5 Atherosclerotic heart disease of [place] coronary artery with other forms of angina pectoris hx of CAD with prior stenting of proximal LAD, LCx, RCA Ischemic cardiomyopathy Onychodystrophy Chronic anticoagulation Eliquis Osteoarthritis of spine Hypothyroidism Hypertension Hyperlipidemia Diabetes Depression Anemia Foot drop, left H/O acute myocardial infarction H/O deep venous thrombosis developed compartment syndrome Surgical History Peritoneal dialysis catheter in situ (06/15/21) History of appendectomy 1995 History of excision of mass 06/08/2019: Subcutaneous mass on back History of removal of Port-a-Cath Port-A-Cath in place H/O vasectomy Hx of cholecystectomy History of coronary artery stent placement 5x H/O skin graft History of inguinal hernia repair, bilateral 1999 H/O removal of testicle left H/O colonoscopy (11/14/20) 08/2015 H/O esophagogastroduodenoscopy (11/14/20) 08/2015 Family History Grandfather Cancer skin cancer Parkinson disease Brother Hypertension Father Heart disease Mother Hypertension Stroke Aneurysm Grandmother Aneurysm Other Crohn's disease Denies family history of Anesthesia complication Bleeding disorder Social History Smoking and tobacco/nicotine status: never used tobacco/nicotine Second hand smoke exposure: No Alcohol intake: former Year of sobriety/quit date alcohol: 2016 Former alcohol use details: Only holidays - last use 05.19.2015 Substance/Drug Use: never Adopted: No Caregiver/support person: No Lives independently: Yes Household members: spouse Housing: Apartment Marital status: Number of children: 2 Number of grandchildren: 0 Highest education level completed: High School Graduate service: No Current occupational status: disabled Pets and animals: Yes Pets & animals: dog(s) Leisure activites: games and other Leisure activities details: watching TV Sexually active: Yes Do you think of yourself as: Straight/Heterosexual Current gender identity: Male Shannon/Mormon: Methodist Special shannon needs: No Agree to transfusion: Yes Physical Exam 2 Const: COMMON NORMALS: no acute distress GENERAL APPEARANCE: cooperative and comfortable ORIENTATION/CONSCIOUSNESS: Yes awake, Yes oriented to person, Yes oriented to place and Yes oriented to time HENMT: COMMON NORMALS: normocephalic, atraumatic and hearing grossly normal bilaterally HEAD & SCALP: normocephalic and atraumatic Resp: COMMON NORMALS: normal respiratory effort, No retractions, No use of accessory muscles and clear to auscultation bilaterally AUSCULTATION: clear to auscultation bilaterally Cardio: COMMON NORMALS: regular rate, regular rhythm and No murmurs present (Cardio) RATE: regular rate RHYTHM: regular rhythm GI: COMMON NORMALS: Soft to palpation and No hepatosplenomegaly present A USCULTATION: Yes normoactive bowel sounds PALPATION: Yes Soft to palpation, No Tenderness to palpation present (GI), No Guarding due to palpation present (GI) and Yes No hepatosplenomegaly present Extremity: COMMON NORMALS: normal to inspection, capillary refill normal, no clubbing, cyanosis or edema, no calf tenderness and no pedal edema Neuro: SENSORIUM/ORIENTATION: Yes oriented to person, Yes oriented to place and Yes oriented to time Skin: COMMON NORMALS: no rashes or lesions noted GENERAL SKIN EXAM: no rashes or lesions noted Course 2 Vital Signs: Vital signs: Vital Signs Temperature 98.1 F 04/18/24 06:50 Pulse Rate 87 04/18/24 10:33 Respiratory Rate 17 04/18/24 10:33 Blood Pressure 136/81 04/18/24 10:33 Pulse Oximetry 92 04/18/24 10:33 Oxygen Delivery Me thod Room Air 04/18/24 07:09 MDM - Chest Pain Medical Decision Making EKG does not show any acute changes cardiac enzymes trending negative. Patient had cardiac catheterization 3 weeks ago. I reviewed the case with Dr. Mckinney he reviewed the chart he does not feel at this point that they would take the patient back to cardiac [employer] given that the patient's EKGs and cardiac enzymes are unremarkable and he had a [employer] just catheter just a few weeks ago he recommends discharging the patient and following up as an outpatient cardiology feels he can go through with his dialysis as scheduled today. Suspect that his symptoms are still related to the urine uremic pericarditis continue colchicine other meds previously prescribed. Medical Records I reviewed the patient's medical records. Lab Data I reviewed the patient's lab results. 04/18/24 07:14 04/18/24 07:14 Radiology Impressions Chest X-Ray 04/18/24 06:56 IMPRESSION: No acute chest pathology identified. Laboratory Results WBC 7.63 10^3/uL (3.29-11.43) 04/18/24 07:14 RBC 2.82 10^6/uL (3.85-5.65) L 04/18/24 07:14 Hgb 9.40 g/dL (11.27-16.99) L 04/18/24 07:14 Hct 28.3 % (37-53) L 04/18/24 07:14 MCV 100.4 fl (82-101) 04/18/24 07:14 MCH 33.3 pg (27-33) H 04/18/24 07:14 MCHC 33.2 g/dL (30-55) 04/18/24 07:14 RDW 13.1 % (12.1-15.1) 04/18/24 07:14 Plt Count 201 10^3/cmm (157-399) 04/18/24 07:14 MPV 9.6 fL (7.4-10.4) 04/18/24 07:14 Neut % (Auto) 70.2 % 04/18/24 07:14 Lymph % (Auto) 18.0 % 04/18/24 07:14 [place] % (Auto) 6.7 % 04/18/24 07:14 Eos % (Auto) 4.2 % 04/18/24 07:14 Baso % (Auto) 0.5 % 04/18/24 07:14 Neut # (Auto) 5.36 10^3/uL (1.8-7.7) 04/18/24 07:14 Lymph # (Auto) 1.4 10^3/uL (0.8-4.8) 04/18/24 07:14 [place] # (Auto) 0.5 10^3/uL (0.2-0.9) 04/18/24 07:14 Eos # (Auto) 0.3 10^3/uL (0.0-0.8) 04/18/24 07:14 Baso # (Auto) 0.0 10^3/uL (0.0-0.1) 04/18/24 07:14 Nucleated RBC % (auto) 0 % 04/18/24 07:14 Nucleated RBCs # 0.0 /100WBC 04/18/24 07:14 ESR 6 mm/hr (0-10) 04/18/24 07:14 Sodium 139 mmol/L (136-145) 04/18/24 07:14 Potassium 4.0 mmol/L (3.5-5.1) 04/18/24 07:14 Chloride 101 mmol/L (98-107) 04/18/24 07:14 Carbon Dioxide 26 mmol/L (22-29) 04/18/24 07:14 Anion Gap 16.0 (5-19) 04/18/24 07:14 BUN 38 mg/dL (6-20) H 04/18/24 07:14 Creatinine 4.4 mg/dL (0.7-1.2) H 04/18/24 07:14 GFR Calculation 14.0 mL/min (90-130) L 04/18/24 07:14 Glucose 146 mg/dL (65-115) H 04/18/24 07:14 Calculated Osmolality 300 mOsm/kg (285-295) H 04/18/24 07:14 Calcium 9.1 mg/dL (8.5-10.5) 04/18/24 07:14 Total Bilirubin 0.3 mg/dL (0.15-1.2) 04/18/24 07:14 AST 11 U/L (0-40) 04/18/24 07:14 ALT 16 U/L (0-41) 04/18/24 07:14 Alkaline Phosphatase 106 U/L (40-130) 04/18/24 07:14 Troponin T Baseline 64 ng/L (0-15) H 04/18/24 07:14 Troponin T 120 Minute 56.97 ng/L (0-15) H 04/18/24 09:16 Delta Troponin T -7.03 ABS# (0-10) L 04/18/24 09:16 C-Reactive Protein 26.3 mg/L (0.0-4.9) H 04/18/24 07:14 Total Protein 5.5 g/dL (6.6-8.7) L 04/18/24 07:14 Albumin 3.7 g/dL (3.5-5.2) 04/18/24 07:14 Globulin 1.8 g/dL (1.3-4.6) 04/18/24 07:14 All radiology interpretation(s) finalized by discharge Discharge Plan Discharge Patient Disposition: Home Clinical Impression: Uremic pericarditis, End stage renal disease on dialysis, Coronary artery disease Condition: Stable Prescriptions: No Action (DME) Diabetic Shoes with Custom insoles See Rx Instructions .Route .MEDSUPPLY Qty: 1 0RF Rx Instructions: As directed (DME) AFO to left See Rx Instructions .Route .MEDSUPPLY Qty: 1 0RF Rx Instructions: As directed by [facility] nifedipine 30 mg tablet extended release 30 mg PO DAILY Qty: 90 3RF ranolazine 1,000 mg tablet extended release 12 hr 1,000 mg PO BID Qty: 60 1RF colchicine 0.6 mg tablet 0.3 mg PO DAILY Qty: 60 0RF bupropion HCl 300 mg tablet extended release 24 hr 300 mg PO QAM Qty: 30 2RF buspirone 10 mg tablet 10 mg PO BID Qty: 60 2RF fluoxetine 40 mg capsule 40 mg PO QAM Qty: 30 2RF atorvastatin 40 mg tablet 40 mg PO QAM Qty: 90 2RF nitroglycerin [Nitrostat] 0.4 mg tablet, sublingual 0.4 mg SUBLINGUAL Q5M PRN (Reason: Chest Pain) Qty: 25 2RF Rx Instructions: do not exceed 3 doses per episode (DME) Dexcom G7 Sensor Device See Rx Instructions .ROUTE .COMPLEX Qty: 9 1RF Dose Instruction: CHANGE every 10 DAYS Rx Instructions: CHANGE every 10 DAYS Mounjaro 15 mg/0.5 mL pen injector See Rx Instructions .ROUTE .COMPLEX Qty: 2 2RF Dose Instruction: inject 15mg (0.5ml) SUBCUTANEOUSLY EVERY 7 DAYS Rx Instructions: inject 15mg (0.5ml) SUBCUTANEOUSLY EVERY 7 DAYS levothyroxine 88 mcg tablet 88 mcg PO QAM gabapentin 100 mg capsule 100 mg PO BID isosorbide mononitrate 30 mg tablet extended release 24 hr See Rx Instructions .ROUTE .COMPLEX Qty: 30 1RF Rx Instructions: Take 30 mg daily, do not take on dialysis days tizanidine 2 mg tablet 2 mg PO BID tamsulosin 0.4 mg capsule 0.4 mg PO DAILY pantoprazole 40 mg Tablet,Delayed Release (Dr/Ec) 40 mg PO DAILY Qty: 30 0RF trazodone 100 mg tablet 300 mg PO BEDTIME PRN (Reason: insomia ) prednisone 20 mg Tablet 40 mg PO DAILY 15 Days Qty: 30 0RF (DME) Dexcom G7 Noc Engineer Misc MISCELLANEOUS diphenhydramine HCl [Benadryl Allergy] 25 mg Tablet 50 mg PO DAILY PRN (Reason: Allergy Symptoms) insulin lispro [Humalog KwikPen Insulin] 100 unit/mL insulin pen See Rx Instructions .ROUTE .COMPLEX Rx Instructions: Sliding scale subcutaneously twice a day as needed. RenaPlex-D 800 mcg-12.5 mg -2,000 unit tablet 1 tab PO DAILY aspirin 81 mg Tablet,Delayed Release (Dr/Ec) 81 mg PO DAILY Qty: 90 3RF Eliquis 2.5 mg tablet 2.5 mg PO BID Qty: 60 2RF sevelamer carbonate 800 mg Tablet 800 mg PO TID Rx Instructions: must administer with a meal/food hydrocodone-acetaminophen 5-325 mg tablet 1 tab PO Q8H PRN (Reason: pain) bumetanide 2 mg tablet 2 mg PO BID Discharge Orders: Discharge ED (Routine); Ordered 04/18/24 Ordered By: Timo Mckoy Referrals: Kp Montanez, [Primary Care Provider] - Discharge Diet: Usual diet Discharge Activity: Increase activity as tolerated Patient Instructions: Opioid Safety, Pain Management Activity Restrictions/Additional Instructions: Thank you for choosing [facility] for your healthcare needs today. It is very important that you follow up as instructed or that you return to the Emergency Department should you have concerns or if your condition changes or worsens in any way. You were seen in the emergency room with complaints of chest discomfort. Your cardiac enzymes trended negative they are at a slightly elevated level but the level is generally where we see your cardiac enzymes regularly. The elevation is due to your kidney failure. EKG did not show any acute changes. We discussed your case with the on-call azure architect given the recent cardiac catheterization and the negative trend of your cardiac enzymes he recommends that you can be discharged back to your usual dialysis run. The chest discomfort you are having he feels is likely due to uremic pericarditis should continue the current medications you are on. Coding Level of Care Code ED Senior Center Manager for Aaron Irene
[2024-04-18 07:22] LABS: Basophils % 0.5 %; Eosinophils # 0.3 10^3/uL (0.0-0.8); Eosinophils % 4.2 %; Hematocrit 28.3 % (37-53); Lymphocytes # 1.4 10^3/uL (0.8-4.8); Mean Corpuscular HGB Conc 33.2 g/dL (30-55); Mean Corpuscular Hemoglobin 33.3 pg (27-33); Mean Corpuscular Volume 100.4 fl (82-101); Mean Platelet Volume 9.6 fL (7.4-10.4); Monocytes # 0.5 10^3/uL (0.2-0.9); Monocytes % 6.7 %; Neutrophils # 5.36 10^3/uL (1.8-7.7); Neutrophils % 70.2 %; Nucleated Red Blood Cells % 0 %; Platelet Count 201 10^3/cmm (157-399); Red Blood Count 2.82 10^6/uL (3.85-5.65); Red Cell Distribution Width 13.1 % (12.1-15.1); White Blood Count 7.63 10^3/uL (3.29-11.43)
[2024-04-18] MEDS: morphine 4 mg/mL SDV 1 mL 2 MG IVP (07:22)
[2024-04-18] MEDS: aspirin 81 mg Chew Tablet 324 MG PO (07:24)
[2024-04-18 07:40] LABS: Alanine Aminotransferase 16 U/L (0-41); Albumin Level 3.7 g/dL (3.5-5.2); Alkaline Phosphatase 106 U/L (40-130); Aspartate Amino Transferase 11 U/L (0-40); Blood Urea Nitrogen 38 mg/dL (6-20); Calcium 9.1 mg/dL (8.5-10.5); Carbon Dioxide 26 mmol/L (22-29); Chloride 101 mmol/L (98-107); Globulin 1.8 g/dL (1.3-4.6); Glucose 146 mg/dL (65-115); Osmolality Calculated 300 mOsm/kg (285-295); Sodium 139 mmol/L (136-145); Total Bilirubin 0.3 mg/dL (0.15-1.2); Total Protein 5.5 g/dL (6.6-8.7); Troponin(5th) Baseline 64 ng/L (0-15)
[2024-04-18 08:53] LABS: Erythrocyte Sedimentation Rate 6 mm/hr (0-10)
[2024-04-18 09:03] LABS: C Reactive Protein 26.3 mg/L (0.0-4.9)
--- NOTE | 2024-04-18 09:17 | ECG_ITS ---
[employer] Test Date: 2024-04-18 Pat Name: Rei Queen Department: Room: Gender: Male First Beater: : 1970 Requested By: Timo Hart Order Number: [id number] Becky MD: Garrison Mckinney M.D. Measurements Intervals [place] Rate: 77 P: 13 WI: 182 QRS: -9 QRSD: 106 T: 39 QT: 397 QTc: 451 Interpretive Statements SINUS RHYTHM POSSIBLE ANTERIOR MYOCARDIAL INFARCTION , OF INDETERMINATE AGE [30 ms Q WAVE IN V3/V4, OR R < 0.2 mV IN V4] Compared to ECG 04/15/2024 17:32:21 No significant changes Electronically Signed On 04-19-2024 19:07:44 EMBEDDED SYSTEMS ENGINEER by Garrison Mckinney M.D. [email or web address]
[2024-04-18 09:39] LABS: Troponin 5 2HR 56.97 ng/L (0-15)
[2024-04-18 09:41] LABS: Troponin 5 2HR Delta -7.03 ABS# (0-10)
[2024-04-18] MEDS: morphine 4 mg/mL SDV 1 mL IVP (09:59)
== END 2024-04-18 10:34 | disposition home or self-care (01) ==
PROVIDERS: Emergency Provider Family Medicine; PCP Internal Medicine
DX: E11.22 Type 2 diabetes mellitus with diabetic chronic kidney disease (principal); I12.0 Hypertensive chronic kidney disease with stage 5 chronic kidney disease or end stage renal disease; N18.6 End stage renal disease; Z99.2 Dependence on renal dialysis; I25.10 Atherosclerotic heart disease of native coronary artery without angina pectoris; E78.5 Hyperlipidemia, unspecified; Z79.4 Long term (current) use of insulin; Z79.01 Long term (current) use of anticoagulants; Z79.82 Long term (current) use of aspirin
CPT/HCPCS: 71045; 80053; 84484; 85025; 85651; 86140; 93005; 96374; 96376; 99285; J2270

== ENCOUNTER 2024-04-21 10:07 | Emergency (ER) | payer MEDICARE, SELFPAY ==
[2024-03-20 13:31] VITALS: BP 125/53; BMI 35.0
[2024-04-21 10:09] VITALS: BP 161/86; PULSE 86; RESP 16; TEMP 36.8; O2SAT 97; BMI 31.6
--- NOTE | 2024-04-21 10:11 | ECG_ITS ---
[facility] Date: 2024-04-21 Pat Name: Rei Queen Department: Room: Gender: Male Hoe Worker: : 1970 Requested By: Ellen Nath Order Number: [id number] Pena MD: Garrison Mckinney M.D. Measurements Intervals [place] Rate: 84 P: 67 [place]: 194 QRS: 54 QRSD: 109 T: 64 QT: 391 QTc: 462 Interpretive Statements SINUS RHYTHM POSSIBLE ANTERIOR MYOCARDIAL INFARCTION , OF INDETERMINATE AGE [30 ms Q WAVE IN V3/V4, OR R < 0.2 mV IN V4] Compared to ECG 04/18/2024 09:17:28 No significant changes Electronically Signed On 04-21-2024 21:31:07 PHOTOGRAPHY INSTRUCTOR by Garrison Mckinney M.D. [id number] f
--- NOTE | 2024-04-21 10:12 | XR_ITS ---
WS: [id number] XR chest 1V portable [id number] REASON FOR EXAM: chest pain FINDINGS: Compared to the previous examination of 04/18/2024 there has been resolution of the areas of atelecta sis in both lower lobes. At this time no acute pulmonary parenchymal or pleural abnormality is identi fied. The chest is otherwise unchanged compared to the previous study of 04/18/2024. XR/XR chest 1V portable [id number] IMPRESSION: Resolution of previous areas of atelectasis in the lung bases. No acute chest a bnormality identified.
--- NOTE | 2024-04-21 10:19 | ED_ITS ---
Documented by User: SURY Bullard 04/21/24 13:46 HPI - Chest Pain 2 General: Chief Complaint: Chest Pain Stated Complaint: Chest Pain Time Seen by Provider: 04/21/24 10:10 Source: patient and EMS Mode of arrival: EMS Limitations: no limitations History of Present Illness: Patient is a 53-year-old male who returns to the ED today for chest pain. Patient is extremely well known to the ED. He was just evaluated here 5 days ago for same complaint. He was at dialysis today and began having chest pain. This is a recurrent issue. Patient has had multiple hospitalizations recently for chest pain. He has no complaints at this time apart from episodic episodes of chest pain. He states these have been present for quite some time. He is not endorsing anything new about today's chest pain episodes-just states I want answers! . Patient has had a total of 7 cardiac stents over the past decade. He was recently admitted to [facility] less than a month ago-his discharge summary is attached below. Cardiology was consulted on his last ED visit 5 days ago and stated they would not further intervene at that time as troponins/EKGs were non- concerning. Discharge summary from 04/05: He had just got angioplasty last week (CFx and RCA).? He was evaluated by cardiology during hospital admission. Troponin baseline was elevated at 102. This is chronically elevated most likely due to ESRF. Serial delta was negative. Patient's pain was worse on deep breathing laying flat and relieved bending forward appearing to be more likely from pericarditis. This was thought to be related to post NSTEMI vs uremic pericarditis. limited echo showed Left ventricular ejection fraction is estimated at 40 %. There appeared to be mid to distal anterior wall and apical hypokinesis. Mild aortic valve stenosis, mean gradient 3.9 mmHg, JCARLOS 1.4 cm squared. Cardiology recommended treatment with colchicine and steroids and was serially re evaluated during admission. With regards to his CAD, it was opined that chest pain is atypical does not appear to be ischemic. Patient was not considered a candidate for further intervention due to already multiple layers of stents, recent balloon angioplasty of the RCA and circumflex stents with excellent angiographic result. possibility of residual residual significant ischemia was considered less likely. For possible small vessel disease, he was on Ranexa. He is on optimal medical regimen for his CAD. He was overall considerd stable from a cardiac standpoint. Discussed with him that the pain of pericarditis would likely take a few weeks to resolve. MD complaint: chest pain Onset (ago): hour(s) Timing of current episode: episodic Prior episodes: Yes Onset: during rest (during dialysis) Pain location: left chest Pain radiation: none Severity: moderate Associated symptoms: Deny abdominal pain, dyspnea, fever(s), nausea, palpitations, syncope or vomiting Risk Factors: Thoracic aortic dissection risk factors: none Related Data Home Medications Medication Instructions Recorded Confirmed levothyroxine 88 mcg tablet 88 mcg PO QAM 02/09/21 04/21/24 blood-glucose meter,continuous 02/27/23 04/21/24 (Dexcom G7 Clean Rice Grader And Reel Tender) diphenhydramine HCl 25 mg tablet 50 mg PO DAILY PRN Allergy Symptoms 05/02/23 04/21/24 (Benadryl Allergy) insulin lispro 100 unit/mL See Rx Instructions .Route .COMPLEX 05/02/23 04/21/24 subcutaneous pen (Humalog KwikPen (U-100) Insulin) gabapentin 100 mg capsule 100 mg PO BID 07/07/23 04/21/24 vit B,C-folic ac 800 mcg-zinc 12.5 1 tab PO DAILY 10/29/23 04/21/24 mg-selen-D3 2,000 unit-vit E tablet (RenaPlex-D) tamsulosin 0.4 mg capsule 0.4 mg PO DAILY 03/24/24 04/21/24 tizanidine 2 mg tablet 2 mg PO BID 03/24/24 04/21/24 bumetanide 2 mg tablet 2 mg PO BID 04/15/24 04/21/24 hydrocodone 5 mg-acetaminophen 325 1 tab PO Q8H PRN pain 04/15/24 04/21/24 mg tablet sevelamer carbonate 800 mg tablet 800 mg PO TID 04/15/24 04/21/24 carvedilol 6.25 mg tablet 6.25 mg PO BID 04/21/24 04/21/24 hydroxyzine HCl 50 mg tablet 100 mg PO BEDTIME PRN insomnia 04/21/24 04/21/24 insulin degludec 200 unit/mL (3 40 unit SUBCUT BEDTIME 04/21/24 04/21/24 mL) subcutaneous pen (Tresiba FlexTouch U-200 insulin) promethazine 25 mg tablet 25 mg PO Q6H PRN Nausea 04/21/24 04/21/24 Previous Rx's Medication Instructions Recorded atorvastatin 40 mg tablet 40 mg PO QAM #90 tabs 10/25/22 AFO to left #1 ea 07/25/23 Diabetic Shoes with Custom insoles #1 ea 07/25/23 nitroglycerin 0.4 mg sublingual 0.4 mg sublingual Q5M PRN Chest 08/27/23 tablet (Nitrostat) Pain #25 tabs isosorbide mononitrate 30 mg See Rx Instructions .Route 10/03/23 tablet,extended release 24 hr .COMPLEX #30 tabs apixaban 2.5 mg tablet (Eliquis) 2.5 mg PO BID #60 tabs 10/30/23 aspirin 81 mg tablet,delayed 81 mg PO DAILY #90 tabs 10/30/23 release blood-glucose sensor (Dexcom G7 #9 ea 11/25/23 Sensor device) pantoprazole 40 mg tablet,delayed 40 mg PO DAILY #30 tabs 03/26/24 release colchicine 0.6 mg tablet 0.3 mg (1/2 x 0.6 mg) PO DAILY #60 04/08/24 tabs nifedipine 30 mg tablet,extended 30 mg PO DAILY #90 tabs 04/08/24 release ranolazine 1,000 mg 1,000 mg PO BID #60 tabs 04/08/24 tablet,extended release,12 hr tirzepatide 15 mg/0.5 mL See Rx Instructions .Route 04/08/24 subcutaneous pen injector .COMPLEX #2 mL (Jennifer) bupropion HCl 300 mg 24 hr tablet, 300 mg PO QAM #30 tabs 04/20/24 extended release buspirone 10 mg tablet 10 mg PO BID #60 tabs 04/20/24 fluoxetine 40 mg capsule 40 mg PO QAM #30 caps 04/20/24 trazodone 100 mg tablet 300 mg (3 x 100 mg) PO BEDTIME PRN 04/20/24 insomia #90 tabs Allergies Allergy/AdvReac Type Severity Reaction Status Date / Time Iodinated Contrast Media Allergy Severe ALGY-Difficulty Verified 04/20/24 10:15 Breathing iodine Allergy Severe ALGY-Difficulty Verified 04/20/24 10:15 Breathing metoclopramide [From Reglan] Allergy Severe ALGY-Difficulty Verified 04/20/24 10:15 Breathing nalbuphine [From Nubain] Allergy Severe ADR-Diarrhe Verified 04/20/24 10:15 a naproxen [From Naprosyn] Allergy Severe ADR-Vomitin Verified 04/20/24 10:15 g Sulfa (Sulfonamide Allergy Severe ALGY-Difficulty Verified 04/20/24 10:15 Antibiotics) Breathing ketorolac Allergy Intermediate ADR-Nausea Verified 04/20/24 10:15 ondansetron [From Zofran] Allergy Intermediate ADR-Abdominal Verified 04/20/24 10:15 Pain prochlorperazine Allergy Intermediate ADR-Irritab Verified 04/20/24 10:15 [From Compazine] le codeine AdvReac Severe ALGY-Anaphy Verified 04/20/24 10:15 laxis haloperidol [From Haldol] AdvReac Intermediate ADR-Irritab Verified 04/20/24 10:15 le Review of Systems 2 Const: Denies: fever(s), chills, body aches, fatigue or malaise Card: Reports: chest pain; Denies: palpitations, irregular heart rhythm, edema, swelling of feet/ankles, lightheadedness, syncope, pre-syncope, leg pain with exertion or acrocyanosis Resp: Denies: dyspnea, productive cough, non-productive cough, wheezing, pain on inspiration, hemoptysis or chest congestion GI: Denies: abdominal pain, nausea, vomiting or diarrhea Musc: Denies: neck pain, back pain, extremity pain, extremity swelling, joint pain or joint swelling Skin/Breast: Denies: rash Neuro: Denies: headache(s), numbness in extremities, weakness in extremities, sensory changes or dizziness PFSH ED 2 PFSH: Medical History Generalized anxiety disorder Major depressive disorder, recurrent severe without psychotic features Pericarditis Elevated troponin Essential hypertension Essential hypertension ESRD (end stage renal disease) Hypertension Psychiatric care 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 mellitus Chronic renal failure Chest pain Chest pain CRF (chronic renal failure) Chronic right SI joint pain Chronic systolic heart failure UTI (urinary tract infection) Peripheral arterial disease PVD (peripheral vascular disease) Worsening angina Angina at rest Chest pain ESRD (end stage renal disease) Uremic encephalopathy ESRD (end stage renal disease) D-dimer, elevated Acute on chronic congestive heart failure History of pulmonary embolism Diabetes Acute kidney injury superimposed on CKD GERD (gastroesophageal reflux disease) Alcohol use disorder, moderate, in sustained remission DVT (deep venous thrombosis) (~03/2020) Proximal left subclavian, basilic and brachial veins, started eliquis this stay, felt present prior to admission Chronic kidney disease -baseline Cr appears to be around 1.5 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 with other forms of angina pectoris hx of CAD with prior stenting of proximal LAD, LCx, RCA Ischemic cardiomyopathy Onychodystrophy Chronic anticoagulation Eliquis Osteoarthritis of spine Hypothyroidism Hypertension Hyperlipidemia Diabetes Depression Anemia Foot drop, left H/O acute myocardial infarction H/O deep venous thrombosis developed compartment syndrome Surgical History Peritoneal dialysis catheter in situ (06/15/21) History of appendectomy 1995 History of excision of mass 06/08/2019: Subcutaneous mass on back History of removal of Port-a-Cath Port-A-Cath in place H/O vasectomy Hx of cholecystectomy History of coronary artery stent placement 5x H/O skin graft History of inguinal hernia repair, bilateral 1999 H/O removal of testicle left H/O colonoscopy (11/14/20) 08/2015 H/O esophagogastroduodenoscopy (11/14/20) 08/2015 Family History Grandfather Cancer skin cancer Parkinson disease Brother Hypertension Father Heart disease Mother Hypertension Stroke Aneurysm Grandmother Aneurysm Other Crohn's disease Denies family history of Anesthesia complication Bleeding disorder Social History Smoking and tobacco/nicotine status: never used tobacco/nicotine Second hand smoke exposure: No Alcohol intake: former Year of sobriety/quit date alcohol: 2016 Former alcohol use details: Only holidays - last use 05.19.2015 Substance/Drug Use: never Adopted: No Caregiver/support person: No Lives independently: Yes Household members: spouse Housing: Apartment Marital status: Number of children: 2 Number of grandchildren: 0 Highest education level completed: High School Graduate service: No Current occupational status: disabled Pets and animals: Yes Pets & animals: dog(s) Leisure activites: games and other Leisure activities details: watching TV Sexually active: Yes Do you think of yourself as: Straight/Heterosexual Current gender identity: Male Shannon/Congregation: [employer] Special shannon needs: No Agree to transfusion: Yes Physical Exam 2 Const: COMMON NORMALS: no acute distress, average body habitus, patient oriented x3, no limitations, alert and well nourished GENERAL APPEARANCE: c ooperative ORIENTATION/CONSCIOUSNESS: Yes awake, Yes oriented to person, Yes oriented to place and Yes oriented to time HENMT: COMMON NORMALS: normocephalic and atraumatic HEAD & SCALP: normal to inspection, normocephalic and atraumatic Neck/C-Spine: COMMON NORMALS: full ROM, no lymphadenopathy, supple and no meningeal signs Chest: COMMONS NORMALS: normal inspection of the chest and normal palpation of entire chest wall Resp: COMMON NORMALS: normal respiratory effort and clear to auscultation bilaterally AUSCULTATION: clear to auscultation bilaterally Cardio: COMMON NORMALS: regular rate and regular rhythm RATE: regular rate RHYTHM: regular rhythm GI: COMMON NORMALS: Normal to inspection, nondistended, normoactive bowel sounds present, Soft to palpation, non-tender, No hepatosplenomegaly present and no masses PALPATION: Yes Soft to palpation and Yes No hepatosplenomegaly present : COMMON NORMALS: Yes no CVA tenderness BLADDER/KIDNEY EXAM: Yes no CVA tenderness Back/Pelvis: COMMON NORMALS: no CVA tenderness and thoracic and lumbar spine normal to inspection Extremity: COMMON NORMALS: normal to inspection, no clubbing, cyanosis or edema, no calf tenderness and no pedal edema GENERAL: Yes normal exam except as noted Neuro: COMMON NORMALS: patient oriented x3, moves all extremities, no focal motor deficits and no sensory deficits noted SENSORIUM/ORIENTATION: Yes alert, Yes oriented to person, Yes oriented to place and Yes oriented to time MENINGEAL SIGNS: Yes no meningeal signs Skin: COMMON NORMALS: no rashes or lesions noted GENERAL SKIN EXAM: no rashes or lesions noted Course 2 Vital Signs: Vital signs: Vital Signs Temperature 98.2 F 04/21/24 10:09 Pulse Rate 77 04/21/24 13:52 Respiratory Rate 18 04/21/24 13:48 Blood Pressure 141/68 04/21/24 13:52 Pulse Oximetry 97 04/21/24 13:52 Oxygen Delivery Me thod Room Air 04/21/24 13:20 MDM - Chest Pain Medical Decision Making Patient clinically appears in no acute distress. His baseline and repeat EKGs are unremarkable. Baseline troponin of 50 which is his normal given his ESRD. Negative delta. CXR unremarkable. Patient will be allowed discharge. Will have case management set him up with cardiology ER follow-up. Medical Records I reviewed the patient's medical records. Lab Data I reviewed the patient's lab results. 04/21/24 10:50 04/21/24 10:50 Radiology Impressions Chest X-Ray 04/21/24 10:12 IMPRESSION: Resolution of previous areas of atelectasis in the lung bases. No acute chest abnormality identified. Laboratory Results WBC 6.95 10^3/uL (3.29-11.43) 04/21/24 10:50 RBC 3.33 10^6/uL (3.85-5.65) L 04/21/24 10:50 Hgb 11.40 g/dL (11.27-16.99) 04/21/24 10:50 Hct 33.5 % (37-53) L 04/21/24 10:50 MCV 100.6 fl (82-101) 04/21/24 10:50 MCH 34.2 pg (27-33) H 04/21/24 10:50 MCHC 34.0 g/dL (30-55) 04/21/24 10:50 RDW 13.2 % (12.1-15.1) 04/21/24 10:50 Plt Count 234 10^3/cmm (157-399) 04/21/24 10:50 MPV 9.6 fL (7.4-10.4) 04/21/24 10:50 Neut % (Auto) 70.2 % 04/21/24 10:50 Lymph % (Auto) 16.8 % 04/21/24 10:50 O'Brien % (Auto) 8.5 % 04/21/24 10:50 Eos % (Auto) 3.2 % 04/21/24 10:50 Baso % (Auto) 0.9 % 04/21/24 10:50 Neut # (Auto) 4.88 10^3/uL (1.8-7.7) 04/21/24 10:50 Lymph # (Auto) 1.2 10^3/uL (0.8-4.8) 04/21/24 10:50 O'Brien # (Auto) 0.6 10^3/uL (0.2-0.9) 04/21/24 10:50 Eos # (Auto) 0.2 10^3/uL (0.0-0.8) 04/21/24 10:50 Baso # (Auto) 0.1 10^3/uL (0.0-0.1) 04/21/24 10:50 Nucleated RBC % (auto) 0 % 04/21/24 10:50 Nucleated RBCs # 0.0 /100WBC 04/21/24 10:50 Sodium 138 mmol/L (136-145) 04/21/24 10:50 Potassium 3.6 mmol/L (3.5-5.1) 04/21/24 10:50 Chloride 99 mmol/L (98-107) 04/21/24 10:50 Carbon Dioxide 25 mmol/L (22-29) 04/21/24 10:50 Anion Gap 17.6 (5-19) 04/21/24 10:50 BUN 17 mg/dL (6-20) 04/21/24 10:50 Creatinine 2.2 mg/dL (0.7-1.2) H 04/21/24 10:50 GFR Calculation 31.2 mL/min (90-130) L 04/21/24 10:50 Glucose 153 mg/dL (65-115) H 04/21/24 10:50 Calculated Osmolality 291 mOsm/kg (285-295) 04/21/24 10:50 Calcium 8.9 mg/dL (8.5-10.5) 04/21/24 10:50 Total Bilirubin 0.5 mg/dL (0.15-1.2) 04/21/24 10:50 AST 17 U/L (0-40) 04/21/24 10:50 ALT 14 U/L (0-41) 04/21/24 10:50 Alkaline Phosphatase 133 U/L (40-130) H 04/21/24 10:50 Troponin T Baseline 50 ng/L (0-15) H 04/21/24 10:50 Troponin T 120 Minute 48.88 ng/L (0-15) H 04/21/24 12:58 Delta Troponin T -1.12 ABS# (0-10) L 04/21/24 12:58 Total Protein 6.4 g/dL (6.6-8.7) L 04/21/24 10:50 Albumin 3.7 g/dL (3.5-5.2) 04/21/24 10:50 Globulin 2.7 g/dL (1.3-4.6) 04/21/24 10:50 All radiology interpretation(s) finalized by discharge Discharge Plan Discharge Patient Disposition: Home Clinical Impression: Chest pain Qualifiers: Chest pain type: unspecified Qualified Code(s): R07.9 - Chest pain, unspecified Condition: Stable Prescriptions: No Action (DME) Diabetic Shoes with Custom insoles See Rx Instructions .Route .MEDSUPPLY Qty: 1 0RF Rx Instructions: As directed (DME) AFO to left See Rx Instructions .Route .MEDSUPPLY Qty: 1 0RF Rx Instructions: As directed by [facility] trazodone 100 mg tablet 300 mg PO BEDTIME PRN (Reason: insomia ) Qty: 90 11RF bupropion HCl 300 mg tablet extended release 24 hr 300 mg PO QAM Qty: 30 11RF buspirone 10 mg tablet 10 mg PO BID Qty: 60 11RF fluoxetine 40 mg capsule 40 mg PO QAM Qty: 30 11RF nifedipine 30 mg tablet extended release 30 mg PO DAILY Qty: 90 3RF ranolazine 1,000 mg tablet extended release 12 hr 1,000 mg PO BID Qty: 60 1RF colchicine 0.6 mg tablet 0.3 mg PO DAILY Qty: 60 0RF atorvastatin 40 mg tablet 40 mg PO QAM Qty: 90 2RF nitroglycerin [Nitrostat] 0.4 mg tablet, sublingual 0.4 mg SUBLINGUAL Q5M PRN (Reason: Chest Pain) Qty: 25 2RF Rx Instructions: do not exceed 3 doses per episode (DME) Dexcom G7 Sensor Device See Rx Instructions .ROUTE .COMPLEX Qty: 9 1RF Dose Instruction: CHANGE every 10 DAYS Rx Instructions: CHANGE every 10 DAYS Mounjaro 15 mg/0.5 mL pen injector See Rx Instructions .ROUTE .COMPLEX Qty: 2 2RF Dose Instruction: inject 15mg (0.5ml) SUBCUTANEOUSLY EVERY 7 DAYS Rx Instructions: inject 15mg (0.5ml) SUBCUTANEOUSLY EVERY 7 DAYS ON SATURDAY. levothyroxine 88 mcg tablet 88 mcg PO QAM gabapentin 100 mg capsule 100 mg PO BID isosorbide mononitrate 30 mg tablet extended release 24 hr See Rx Instructions .ROUTE .COMPLEX Qty: 30 1RF Rx Instructions: Take 30 mg daily, do not take on dialysis days tizanidine 2 mg tablet 2 mg PO BID tamsulosin 0.4 mg capsule 0.4 mg PO DAILY pantoprazole 40 mg Tablet,Delayed Release (Dr/Ec) 40 mg PO DAILY Qty: 30 0RF carvedilol 6.25 mg tablet 6.25 mg PO BID promethazine 25 mg tablet 25 mg PO Q6H PRN (Reason: Nausea) insulin degludec [Tresiba FlexTouch U-200] 200 unit/mL (3 mL) insulin pen 40 unit SUBCUT BEDTIME hydroxyzine HCl 50 mg tablet 100 mg PO BEDTIME PRN (Reason: insomnia) (DME) 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 RenaPlex-D 800 mcg-12.5 mg -2,000 unit tablet 1 tab PO DAILY aspirin 81 mg Tablet,Delayed Release (Dr/Ec) 81 mg PO DAILY Qty: 90 3RF Eliquis 2.5 mg tablet 2.5 mg PO BID Qty: 60 2RF sevelamer carbonate 800 mg Tablet 800 mg PO TID Rx Instructions: must administer with a meal/food hydrocodone-acetaminophen 5-325 mg tablet 1 tab PO Q8H PRN (Reason: pain) bumetanide 2 mg tablet 2 mg PO BID Discharge Orders: Discharge ED (Routine); Ordered 04/21/24 Ordered By: Ellen Nath Referrals: Kp Montanez DO [Primary Care Provider] - Activity Restrictions/Additional Instructions: As we discussed, we will try to have case management set you up with cardiology for an ER follow-up for further evaluation regarding your chest pain. Coding Level of Care Code ED Family Services Manager for Chg Fwd Documented by User: Timo Mckoy DO 04/21/24 18:45 HPI - Chest Pain 2 General: Chief Complaint: Chest Pain Stated Complaint: Chest Pain Time Seen by Provider: 04/21/24 10:10 Related Data Home Medications Medication Instructions Recorded Confirmed levothyroxine 88 mcg tablet 88 mcg PO QAM 02/09/21 04/21/24 blood-glucose meter,continuous 02/27/23 04/21/24 (Dexcom G7 Clean Rice Grader And Reel Tender) diphenhydramine HCl 25 mg tablet 50 mg PO DAILY PRN Allergy Symptoms 05/02/23 04/21/24 (Benadryl Allergy) insulin lispro 100 unit/mL See Rx Instructions .Route .COMPLEX 05/02/23 04/21/24 subcutaneous pen (Humalog KwikPen (U-100) Insulin) gabapentin 100 mg capsule 100 mg PO BID 07/07/23 04/21/24 vit B,C-folic ac 800 mcg-zinc 12.5 1 tab PO DAILY 10/29/23 04/21/24 mg-selen-D3 2,000 unit-vit E tablet (RenaPlex-D) tamsulosin 0.4 mg capsule 0.4 mg PO DAILY 03/24/24 04/21/24 tizanidine 2 mg tablet 2 mg PO BID 03/24/24 04/21/24 bumetanide 2 mg tablet 2 mg PO BID 04/15/24 04/21/24 hydrocodone 5 mg-acetaminophen 325 1 tab PO Q8H PRN pain 04/15/24 04/21/24 mg tablet sevelamer carbonate 800 mg tablet 800 mg PO TID 04/15/24 04/21/24 carvedilol 6.25 mg tablet 6.25 mg PO BID 04/21/24 04/21/24 hydroxyzine HCl 50 mg tablet 100 mg PO BEDTIME PRN insomnia 04/21/24 04/21/24 insulin degludec 200 unit/mL (3 40 unit SUBCUT BEDTIME 04/21/24 04/21/24 mL) subcutaneous pen (Tresiba FlexTouch U-200 insulin) promethazine 25 mg tablet 25 mg PO Q6H PRN Nausea 04/21/24 04/21/24 Previous Rx's Medication Instructions Recorded atorvastatin 40 mg tablet 40 mg PO QAM #90 tabs 10/25/22 AFO to left #1 ea 07/25/23 Diabetic Shoes with Custom insoles #1 ea 07/25/23 nitroglycerin 0.4 mg sublingual 0.4 mg sublingual Q5M PRN Chest 08/27/23 tablet (Nitrostat) Pain #25 tabs isosorbide mononitrate 30 mg See Rx Instructions .Route 10/03/23 tablet,extended release 24 hr .COMPLEX #30 tabs apixaban 2.5 mg tablet (Eliquis) 2.5 mg PO BID #60 tabs 10/30/23 aspirin 81 mg tablet,delayed 81 mg PO DAILY #90 tabs 10/30/23 release blood-glucose sensor (Dexcom G7 #9 ea 11/25/23 Sensor device) pantoprazole 40 mg tablet,delayed 40 mg PO DAILY #30 tabs 03/26/24 release colchicine 0.6 mg tablet 0.3 mg (1/2 x 0.6 mg) PO DAILY #60 04/08/24 tabs nifedipine 30 mg tablet,extended 30 mg PO DAILY #90 tabs 04/08/24 release ranolazine 1,000 mg 1,000 mg PO BID #60 tabs 04/08/24 tablet,extended release,12 hr tirzepatide 15 mg/0.5 mL See Rx Instructions .Route 04/08/24 subcutaneous pen injector .COMPLEX #2 mL (Mounjaro) bupropion HCl 300 mg 24 hr tablet, 300 mg PO QAM #30 tabs 04/20/24 extended release buspirone 10 mg tablet 10 mg PO BID #60 tabs 04/20/24 fluoxetine 40 mg capsule 40 mg PO QAM #30 caps 04/20/24 trazodone 100 mg tablet 300 mg (3 x 100 mg) PO BEDTIME PRN 04/20/24 insomia #90 tabs Allergies Allergy/AdvReac Type Severity Reaction Status Date / Time Iodinated Contrast Media Allergy Severe ALGY-Difficulty Verified 04/20/24 10:15 Breathing iodine Allergy Severe ALGY-Difficulty Verified 04/20/24 10:15 Breathing metoclopramide [From Reglan] Allergy Severe ALGY-Difficulty Verified 04/20/24 10:15 Breathing nalbuphine [From Nubain] Allergy Severe ADR-Diarrhe Verified 04/20/24 10:15 a naproxen [From Naprosyn] Allergy Severe ADR-Vomitin Verified 04/20/24 10:15 g Sulfa (Sulfonamide Allergy Severe ALGY-Difficulty Verified 04/20/24 10:15 Antibiotics) Breathing ketorolac Allergy Intermediate ADR-Nausea Verified 04/20/24 10:15 ondansetron [From Zofran] Allergy Intermediate ADR-Abdominal Verified 04/20/24 10:15 Pain prochlorperazine Allergy Intermediate ADR-Irritab Verified 04/20/24 10:15 [From Compazine] le codeine AdvReac Severe ALGY-Anaphy Verified 04/20/24 10:15 laxis haloperidol [From Haldol] AdvReac Intermediate ADR-Irritab Verified 04/20/24 10:15 le PFS ED 2 PFSH: Medical History Generalized anxiety disorder Major depressive disorder, recurrent severe without psychotic features Pericarditis Elevated troponin Essential hypertension Essential hypertension ESRD (end stage renal disease) Hypertension Psychiatric care 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 mellitus Chronic renal failure Chest pain Chest pain CRF (chronic renal failure) Chronic right SI joint pain Chronic systolic heart failure UTI (urinary tract infection) Peripheral arterial disease PVD (peripheral vascular disease) Worsening angina Angina at rest Chest pain ESRD (end stage renal disease) Uremic encephalopathy ESRD (end stage renal disease) D-dimer, elevated Acute on chronic congestive heart failure History of pulmonary embolism Diabetes Acute kidney injury superimposed on CKD GERD (gastroesophageal reflux disease) Alcohol use disorder, moderate, in sustained remission DVT (deep venous thrombosis) (~03/2020) Proximal left subclavian, basilic and brachial veins, started eliquis this stay, felt present prior to admission Chronic kidney disease -baseline Cr appears to be around 1.5 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 with other forms of angina pectoris hx of CAD with prior stenting of proximal LAD, LCx, RCA Ischemic cardiomyopathy Onychodystrophy Chronic anticoagulation Eliquis Osteoarthritis of spine Hypothyroidism Hypertension Hyperlipidemia Diabetes Depression Anemia Foot drop, left H/O acute myocardial infarction H/O deep venous thrombosis developed compartment syndrome Surgical History Peritoneal dialysis catheter in situ (06/15/21) History of appendectomy 1995 History of excision of mass 06/08/2019: Subcutaneous mass on back History of removal of Port-a-Cath Port-A-Cath in place H/O vasectomy Hx of cholecystectomy History of coronary artery stent placement 5x H/O skin graft History of inguinal hernia repair, bilateral 2000 H/O removal of testicle left H/O colonoscopy (11/14/20) 08/2015 H/O esophagogastroduodenoscopy (11/14/20) 08/2015 Family History Grandfather Cancer skin cancer Parkinson disease Brother Hypertension Father Heart disease Mother Hypertension Stroke Aneurysm Grandmother Aneurysm Other Crohn's disease Denies family history of Anesthesia complication Bleeding disorder Social History Smoking and tobacco/nicotine status: never used tobacco/nicotine Second hand smoke exposure: No Alcohol intake: former Year of sobriety/quit date alcohol: 2015 Former alcohol use details: Only holidays - last use 05.19.2015 Substance/Drug Use: never Adopted: No Caregiver/support person: No Lives independently: Yes Household members: spouse Housing: Apartment Marital status: Number of children: 2 Number of grandchildren: 0 Highest education level completed: High School Graduate service: No Current occupational status: disabled Pets and animals: Yes Pets & animals: dog(s) Leisure activites: games and other Leisure activities details: watching TV Sexually active: Yes Do you think of yourself as: Straight/Heterosexual Current gender identity: Male Shannon/Congregation: [employer] Special shannon needs: No Agree to transfusion: Yes Course 2 Vital Signs: Vital signs: Vital Signs Temperature 98.2 F 04/21/24 10:09 Pulse Rate 77 04/21/24 13:52 Respiratory Rate 18 04/21/24 13:48 Blood Pressure 141/68 04/21/24 13:52 Pulse Oximetry 97 04/21/24 13:52 Oxygen Delivery Me thod Room Air 04/21/24 13:20 MDM - Chest Pain Medical Decision Making Patient clinically appears in no acute distress. His baseline and repeat EKGs are unremarkable. Baseline troponin of 50 which is his normal given his ESRD. Negative delta. CXR unremarkable. Patient will be allowed discharge. Will have case management set him up with cardiology ER follow-up. Chart reviewed and patient discussed with midlevel. Agree with assessment and plan. Lab Data 04/21/24 10:50 04/21/24 10:50 Radiology Impressions Chest X-Ray 04/21/24 10:12 IMPRESSION: Resolution of previous areas of atelectasis in the lung bases. No acute chest abnormality identified. Laboratory Results WBC 6.95 10^3/uL (3.29-11.43) 04/21/24 10:50 RBC 3.33 10^6/uL (3.85-5.65) L 04/21/24 10:50 Hgb 11.40 g/dL (11.27-16.99) 04/21/24 10:50 Hct 33.5 % (37-53) L 04/21/24 10:50 MCV 100.6 fl (82-101) 04/21/24 10:50 MCH 34.2 pg (27-33) H 04/21/24 10:50 MCHC 34.0 g/dL (30-55) 04/21/24 10:50 RDW 13.2 % (12.1-15.1) 04/21/24 10:50 Plt Count 234 10^3/cmm (157-399) 04/21/24 10:50 MPV 9.6 fL (7.4-10.4) 04/21/24 10:50 Neut % (Auto) 70.2 % 04/21/24 10:50 Lymph % (Auto) 16.8 % 04/21/24 10:50 O'Brien % (Auto) 8.5 % 04/21/24 10:50 Eos % (Auto) 3.2 % 04/21/24 10:50 Baso % (Auto) 0.9 % 04/21/24 10:50 Neut # (Auto) 4.88 10^3/uL (1.8-7.7) 04/21/24 10:50 Lymph # (Auto) 1.2 10^3/uL (0.8-4.8) 04/21/24 10:50 O'Brien # (Auto) 0.6 10^3/uL (0.2-0.9) 04/21/24 10:50 Eos # (Auto) 0.2 10^3/uL (0.0-0.8) 04/21/24 10:50 Baso # (Auto) 0.1 10^3/uL (0.0-0.1) 04/21/24 10:50 Nucleated RBC % (auto) 0 % 04/21/24 10:50 Nucleated RBCs # 0.0 /100WBC 04/21/24 10:50 Sodium 138 mmol/L (136-145) 04/21/24 10:50 Potassium 3.6 mmol/L (3.5-5.1) 04/21/24 10:50 Chloride 99 mmol/L (98-107) 04/21/24 10:50 Carbon Dioxide 25 mmol/L (22-29) 04/21/24 10:50 Anion Gap 17.6 (5-19) 04/21/24 10:50 BUN 17 mg/dL (6-20) 04/21/24 10:50 Creatinine 2.2 mg/dL (0.7-1.2) H 04/21/24 10:50 GFR Calculation 31.2 mL/min (90-130) L 04/21/24 10:50 Glucose 153 mg/dL (65-115) H 04/21/24 10:50 Calculated Osmolality 291 mOsm/kg (285-295) 04/21/24 10:50 Calcium 8.9 mg/dL (8.5-10.5) 04/21/24 10:50 Total Bilirubin 0.5 mg/dL (0.15-1.2) 04/21/24 10:50 AST 17 U/L (0-40) 04/21/24 10:50 ALT 14 U/L (0-41) 04/21/24 10:50 Alkaline Phosphatase 133 U/L (40-130) H 04/21/24 10:50 Troponin T Baseline 50 ng/L (0-15) H 04/21/24 10:50 Troponin T 120 Minute 48.88 ng/L (0-15) H 04/21/24 12:58 Delta Troponin T -1.12 ABS# (0-10) L 04/21/24 12:58 Total Protein 6.4 g/dL (6.6-8.7) L 04/21/24 10:50 Albumin 3.7 g/dL (3.5-5.2) 04/21/24 10:50 Globulin 2.7 g/dL (1.3-4.6) 04/21/24 10:50 Discharge Plan Discharge Patient Disposition: Home Clinical Impression: Chest pain Qualifiers: Chest pain type: unspecified Qualified Code(s): R07.9 - Chest pain, unspecified Condition: Stable Prescriptions: No Action (DME) Diabetic Shoes with Custom insoles See Rx Instructions .Route .MEDSUPPLY Qty: 1 0RF Rx Instructions: As directed (DME) AFO to left See Rx Instructions .Route .MEDSUPPLY Qty: 1 0RF Rx Instructions: As directed by [facility] trazodone 100 mg tablet 300 mg PO BEDTIME PRN (Reason: insomia ) Qty: 90 11RF bupropion HCl 300 mg tablet extended release 24 hr 300 mg PO QAM Qty: 30 11RF buspirone 10 mg tablet 10 mg PO BID Qty: 60 11RF fluoxetine 40 mg capsule 40 mg PO QAM Qty: 30 11RF nifedipine 30 mg tablet extended release 30 mg PO DAILY Qty: 90 3RF ranolazine 1,000 mg tablet extended release 12 hr 1,000 mg PO BID Qty: 60 1RF colchicine 0.6 mg tablet 0.3 mg PO DAILY Qty: 60 0RF atorvastatin 40 mg tablet 40 mg PO QAM Qty: 90 2RF nitroglycerin [Nitrostat] 0.4 mg tablet, sublingual 0.4 mg SUBLINGUAL Q5M PRN (Reason: Chest Pain) Qty: 25 2RF Rx Instructions: do not exceed 3 doses per episode (DME) Dexcom G7 Sensor Device See Rx Instructions .ROUTE .COMPLEX Qty: 9 1RF Dose Instruction: CHANGE every 10 DAYS Rx Instructions: CHANGE every 10 DAYS Mounjaro 15 mg/0.5 mL pen injector See Rx Instructions .ROUTE .COMPLEX Qty: 2 2RF Dose Instruction: inject 15mg (0.5ml) SUBCUTANEOUSLY EVERY 7 DAYS Rx Instructions: inject 15mg (0.5ml) SUBCUTANEOUSLY EVERY 7 DAYS ON SATURDAY. levothyroxine 88 mcg tablet 88 mcg PO QAM gabapentin 100 mg capsule 100 mg PO BID isosorbide mononitrate 30 mg tablet extended release 24 hr See Rx Instructions .ROUTE .COMPLEX Qty: 30 1RF Rx Instructions: Take 30 mg daily, do not take on dialysis days tizanidine 2 mg tablet 2 mg PO BID tamsulosin 0.4 mg capsule 0.4 mg PO DAILY pantoprazole 40 mg Tablet,Delayed Release (Dr/Ec) 40 mg PO DAILY Qty: 30 0RF carvedilol 6.25 mg tablet 6.25 mg PO BID promethazine 25 mg tablet 25 mg PO Q6H PRN (Reason: Nausea) insulin degludec [Tresiba FlexTouch U-200] 200 unit/mL (3 mL) insulin pen 40 unit SUBCUT BEDTIME hydroxyzine HCl 50 mg tablet 100 mg PO BEDTIME PRN (Reason: insomnia) (DME) 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 RenaPlex-D 800 mcg-12.5 mg -2,000 unit tablet 1 tab PO DAILY aspirin 81 mg Tablet,Delayed Release (Dr/Ec) 81 mg PO DAILY Qty: 90 3RF Eliquis 2.5 mg tablet 2.5 mg PO BID Qty: 60 2RF sevelamer carbonate 800 mg Tablet 800 mg PO TID Rx Instructions: must administer with a meal/food hydrocodone-acetaminophen 5-325 mg tablet 1 tab PO Q8H PRN (Reason: pain) bumetanide 2 mg tablet 2 mg PO BID Discharge Orders: Discharge ED (Routine); Ordered 04/21/24 Ordered By: Ellen Nath Referrals: Kp Montanez DO [Primary Care Provider] - Activity Restrictions/Additional Instructions: As we discussed, we will try to have case management set you up with cardiology for an ER follow-up for further evaluation regarding your chest pain. Coding Level of Care Code ED Family Services Manager for Aaron Irene
[2024-04-21 10:26] VITALS: BP 161/86; PULSE 82; O2SAT 98
[2024-04-21 11:00] LABS: Basophils # 0.1 10^3/uL (0.0-0.1); Basophils % 0.9 %; Eosinophils # 0.2 10^3/uL (0.0-0.8); Eosinophils % 3.2 %; Hematocrit 33.5 % (37-53); Lymphocytes # 1.2 10^3/uL (0.8-4.8); Lymphocytes % 16.8 %; Mean Corpuscular Hemoglobin 34.2 pg (27-33); Mean Corpuscular Volume 100.6 fl (82-101); Mean Platelet Volume 9.6 fL (7.4-10.4); Monocytes # 0.6 10^3/uL (0.2-0.9); Monocytes % 8.5 %; Neutrophils # 4.88 10^3/uL (1.8-7.7); Neutrophils % 70.2 %; Nucleated Red Blood Cells % 0 %; Platelet Count 234 10^3/cmm (157-399); Red Blood Count 3.33 10^6/uL (3.85-5.65); Red Cell Distribution Width 13.2 % (12.1-15.1); White Blood Count 6.95 10^3/uL (3.29-11.43)
--- NOTE | 2024-04-21 11:04 | PC.PHAR ---
pt states Trulicity was replaced with Tresiba. Pt states still takes Eliquis 2.5mg but last fill was 12/30/23 30ds, Gabapentin 100 mg bid but last fill 08/14/23 90ds.
[2024-04-21 11:24] LABS: Troponin(5th) Baseline 50 ng/L (0-15)
[2024-04-21 11:36] LABS: Alanine Aminotransferase 14 U/L (0-41); Albumin Level 3.7 g/dL (3.5-5.2); Alkaline Phosphatase 133 U/L (40-130); Aspartate Amino Transferase 17 U/L (0-40); Blood Urea Nitrogen 17 mg/dL (6-20); Calcium 8.9 mg/dL (8.5-10.5); Carbon Dioxide 25 mmol/L (22-29); Chloride 99 mmol/L (98-107); Globulin 2.7 g/dL (1.3-4.6); Glomerular Filtration Rate 31.2 mL/min (90-130); Glucose 153 mg/dL (65-115); Osmolality Calculated 291 mOsm/kg (285-295); Sodium 138 mmol/L (136-145); Total Bilirubin 0.5 mg/dL (0.15-1.2); Total Protein 6.4 g/dL (6.6-8.7)
[2024-04-21 11:40] LABS: Anion Gap 17.6 (5-19); Potassium 3.6 mmol/L (3.5-5.1)
--- NOTE | 2024-04-21 12:11 | ECG_ITS ---
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 Measurements Intervals [place] Rate: 75 P: 12 VT: 177 QRS: 55 QRSD: 108 T: 64 QT: 399 QTc: 448 Interpretive Statements SINUS RHYTHM LOW QRS VOLTAGE IN EXTREMITY LEADS [QRS DEFLECTION < 0.5 mV IN LIMB LEADS] POSSIBLE ANTERIOR MYOCARDIAL INFARCTION , OF INDETERMINATE AGE [30 ms Q WAVE IN V3/V4, OR R < 0.2 mV IN V4] Compared to ECG 04/21/2024 10:11:05 Low QRS voltage now present Myocardial infarct finding still present Electronically Signed On 04-21-2024 21:52:37 PARACHUTE SUPERVISOR by Garrison Mckinney M.D. [id number]
[2024-04-21 13:20] VITALS: BP 141/68; PULSE 77; O2SAT 97
[2024-04-21 13:37] LABS: Troponin 5 2HR 48.88 ng/L (0-15)
[2024-04-21 13:39] LABS: Troponin 5 2HR Delta -1.12 ABS# (0-10)
[2024-04-21 13:48] VITALS: RESP 18
[2024-04-21] MEDS: morphine 4 mg/mL SDV 1 mL IVP (13:48)
[2024-04-21 13:52] VITALS: BP 141/68; PULSE 77; O2SAT 97
--- NOTE | 2024-04-24 01:19 | DCPLANNER ---
Message sent to cardiology for follow up in chest pain
== END 2024-04-21 13:53 | disposition home or self-care (01) ==
PROVIDERS: Emergency Provider Physician Assistant; PCP Internal Medicine
DX: R07.9 Chest pain, unspecified (principal); Z79.4 Long term (current) use of insulin; Z79.82 Long term (current) use of aspirin; E11.22 Type 2 diabetes mellitus with diabetic chronic kidney disease; I12.0 Hypertensive chronic kidney disease with stage 5 chronic kidney disease or end stage renal disease; N18.6 End stage renal disease; E78.5 Hyperlipidemia, unspecified
CPT/HCPCS: 36415; 71045; 80053; 84484; 85025; 93005; 96374; 99285; J2270

== ENCOUNTER 2024-05-07 07:44 | Emergency (ER) | payer MEDICARE, SELFPAY ==
[2024-03-20 13:31] VITALS: BP 125/53; BMI 35.0
--- NOTE | 2024-05-07 07:47 | ECG_ITS ---
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 Measurements Intervals [place] Rate: 78 P: 56 LA: 179 QRS: 63 QRSD: 106 T: 49 QT: 437 QTc: 500 Interpretive Statements SINUS RHYTHM ANTERIOR MYOCARDIAL INFARCTION , PROBABLY OLD [40+ ms Q WAVE AND/OR ST/T ABNORMALITY IN V3/V4] nonspecific ST-changes in the inferolateral leads Compared to ECG 04/21/2024 12:11:55 No significant changes Electronically Signed On 05-07-2024 23:57:22 SALES ADMINISTRATOR by Karen Choi M.D. [id number]
--- NOTE | 2024-05-07 07:59 | XR_ITS ---
WS: [id number] Portable AP upright chest, 05/07/2024 Clinical Data: chest pain Comparison: Portable chest, 04/21/2024 Findings: No nodules, masses or effusions are seen. The heart is slightly enlarged. Midline sternotom y sutures are present. No pneumonia or pneumothorax is seen. There is an infusion catheter entering t he left subclavian vein and ending in the superior vena cava. Monitor leads are on the chest wall. XR/XR chest 1V portable [id number] Impression: Cardiomegaly.
[2024-05-07 08:13] VITALS: BP 121/61; PULSE 55; RESP 18; TEMP 36.7; O2SAT 95
[2024-05-07 08:18] VITALS: RESP 18; O2SAT 95
--- NOTE | 2024-05-07 08:31 | ED_ITS ---
HPI - Chest Pain 2 General: Chief Complaint: Chest Pain Stated Complaint: cp Time Seen by Provider: 05/07/24 07:57 History of Present Illness: 53-year-old male presents emergency depa rtment from the outpatient dialysis center. Right as he was sitting down to start dialysis he developed some left- sided chest discomfort that felt like pressure radiating to his neck and arm. He experiences this fairly frequently, approximately once per week. He does have known coronary artery disease and has reported 7 stents . 2 nitroglycerin were given by EMS. On arrival he reports his pain is pretty mild, only a 3 out of 10 and seems to be getting better. Patient does report dyspnea, maybe slightly more than usual. Last dialysis was 2 days ago. Relevant recent history was reviewed: Cardiology notes: 03/31/24 Rei Queen II is a 53 year old male who recently underwent left heart catheterization less than a week ago. He was noted to have significant 80% proximal RCA in-stent restenosis and 80% hazy distal circumflex stent edge stenosis both were treated with balloon angioplasty with excellent angiographic result as trying to avoid the extra layer of the stent. Rest of previously placed stent including proximal LAD and PDA appear to be patent with mild in- stent restenosis. Left ventricular end-diastolic pressure was 23 mmHg. Patient states he has been compliant with his medications. He was taking triple therapy with Eliquis, plavix, and aspirin. He states that he had his fistulogram last week, and they opened up a couple of places. He denies any abnormal bleeding. Patient came in yesterday with chest pain, troponins were flat, so he was discharged. He came back in today with chest pain. Troponin baseline is elevated at 102. This is chronically elevated most likely due to ESRF. He states in the middle of the night he developed chest pain. Nothing made this better or worse. He states this has been going on for 2 days without resolution. He stated it was a pressure in the center of his chest that radiated down the left arm. He states he still has chest pain at this time but it is much improved and is a 5 out of 10. He is currently on a nitro drip and getting a heparin drip added as well. Vital signs are stable. EKG's showed sinus rhythm with no acute ST or T wave changes seen. 04/08/24: The patient is a 53-year-old male presenting with chest wall pain. The chest pain began on March 31, 2024, and was thought to be atypical in nature, more likely due to chest wall pain. A echocardiogram performed on April 02, 2024, indicated a left ventricular ejection fraction of 40%, with mild aortic stenosis characterized by a mean gradient of 3 mmHg and an aortic valve area of 1.4 cm?. The patient reports ongoing chest pain which is partially relieved with his current medication regimen. He was started on colchicine for its anti- inflammatory properties. There is a history of orthostatic hypotension, noted with changes in medication dosages. During the hospital admission, certain antihypertensive medications were temporarily discontinued. Upon discharge, these medications have been reinstated. The patient continues to experience atypical chest pain and reports varying blood pressure but denies recent syncopal episodes or significant dizziness. Related Data Home Medications Medication Instructions Recorded Confirmed levothyroxine 88 mcg tablet 88 mcg PO QAM 02/09/21 05/07/24 blood-glucose meter,continuous 02/27/23 05/07/24 (Dexcom G7 Plastic Joint Maker) diphenhydramine HCl 25 mg tablet 50 mg PO DAILY PRN Allergy Symptoms 05/02/23 05/07/24 (Benadryl Allergy) insulin lispro 100 unit/mL See Rx Instructions .Route .COMPLEX 05/02/23 05/07/24 subcutaneous pen (Humalog KwikPen (U-100) Insulin) gabapentin 100 mg capsule 100 mg PO BID 07/07/23 05/07/24 vit B,C-folic ac 800 mcg-zinc 12.5 1 tab PO DAILY 10/29/23 05/07/24 mg-selen-D3 2,000 unit-vit E tablet (RenaPlex-D) tamsulosin 0.4 mg capsule 0.4 mg PO DAILY 03/24/24 05/07/24 tizanidine 2 mg tablet 2 mg PO BID 03/24/24 05/07/24 bumetanide 2 mg tablet 2 mg PO BID 04/15/24 05/07/24 sevelamer carbonate 800 mg tablet 800 mg PO TID 04/15/24 05/07/24 carvedilol 6.25 mg tablet 6.25 mg PO BID 04/21/24 05/07/24 hydroxyzine HCl 50 mg tablet 100 mg PO BEDTIME PRN insomnia 04/21/24 05/07/24 insulin degludec 200 unit/mL (3 40 unit SUBCUT BEDTIME 04/21/24 05/07/24 mL) subcutaneous pen (Tresiba FlexTouch U-200 insulin) promethazine 25 mg tablet 25 mg PO Q6H PRN Nausea 04/21/24 05/07/24 Previous Rx's Medication Instructions Recorded atorvastatin 40 mg tablet 40 mg PO QAM #90 tabs 10/25/22 AFO to left #1 ea 07/25/23 Diabetic Shoes with Custom insoles #1 ea 07/25/23 nitroglycerin 0.4 mg sublingual 0.4 mg sublingual Q5M PRN Chest 08/27/23 tablet (Nitrostat) Pain #25 tabs isosorbide mononitrate 30 mg See Rx Instructions .Route 10/03/23 tablet,extended release 24 hr .COMPLEX #30 tabs apixaban 2.5 mg tablet (Eliquis) 2.5 mg PO BID #60 tabs 10/30/23 aspirin 81 mg tablet,delayed 81 mg PO DAILY #90 tabs 10/30/23 release blood-glucose sensor (Dexcom G7 #9 ea 11/25/23 Sensor device) pantoprazole 40 mg tablet,delayed 40 mg PO DAILY #30 tabs 03/26/24 release colchicine 0.6 mg tablet 0.3 mg (1/2 x 0.6 mg) PO DAILY #60 04/08/24 tabs nifedipine 30 mg tablet,extended 30 mg PO DAILY #90 tabs 04/08/24 release ranolazine 1,000 mg 1,000 mg PO BID #60 tabs 04/08/24 tablet,extended release,12 hr tirzepatide 15 mg/0.5 mL See Rx Instructions .Route 04/08/24 subcutaneous pen injector .COMPLEX #2 mL (Mounjaro) bupropion HCl 300 mg 24 hr tablet, 300 mg PO QAM #30 tabs 04/20/24 extended release buspirone 10 mg tablet 10 mg PO BID #60 tabs 04/20/24 fluoxetine 40 mg capsule 40 mg PO QAM #30 caps 04/20/24 trazodone 100 mg tablet 300 mg (3 x 100 mg) PO BEDTIME PRN 04/20/24 insomia #90 tabs Allergies Allergy/AdvReac Type Severity Reaction Status Date / Time Iodinated Contrast Media Allergy Severe ALGY-Difficulty Verified 04/20/24 10:15 Breathing iodine Allergy Severe ALGY-Difficulty Verified 04/20/24 10:15 Breathing metoclopramide [From Reglan] Allergy Severe ALGY-Difficulty Verified 04/20/24 10:15 Breathing nalbuphine [From Nubain] Allergy Severe ADR-Diarrhe Verified 04/20/24 10:15 a naproxen [From Naprosyn] Allergy Severe ADR-Vomitin Verified 04/20/24 10:15 g Sulfa (Sulfonamide Allergy Severe ALGY-Difficulty Verified 04/20/24 10:15 Antibiotics) Breathing ketorolac Allergy Intermediate ADR-Nausea Verified 04/20/24 10:15 ondansetron [From Zofran] Allergy Intermediate ADR-Abdominal Verified 04/20/24 10:15 Pain prochlorperazine Allergy Intermediate ADR-Irritab Verified 04/20/24 10:15 [From Compazine] le codeine AdvReac Severe ALGY-Anaphy Verified 04/20/24 10:15 laxis haloperidol [From Haldol] AdvReac Intermediate ADR-Irritab Verified 04/20/24 10:15 le Review of Systems 2 General: Reports: 10 or more systems reviewed and unremarkable except in HPI and below PFSH ED 2 PFSH: Medical History Generalized anxiety disorder Major depressive disorder, recurrent severe without psychotic features Pericarditis Elevated troponin Essential hypertension Essential hypertension ESRD (end stage renal disease) Hypertension Psychiatric care 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 mellitus Chronic renal failure Chest pain Chest pain CRF (chronic renal failure) Chronic right SI joint pain Chronic systolic heart failure UTI (urinary tract infection) Peripheral arterial disease PVD (peripheral vascular disease) Worsening angina Angina at rest Chest pain ESRD (end stage renal disease) Uremic encephalopathy ESRD (end stage renal disease) D-dimer, elevated Acute on chronic congestive heart failure History of pulmonary embolism Diabetes Acute kidney injury superimposed on CKD GERD (gastroesophageal reflux disease) Alcohol use disorder, moderate, in sustained remission DVT (deep venous thrombosis) (~03/2020) Proximal left subclavian, basilic and brachial veins, started eliquis this stay, felt present prior to admission Chronic kidney disease -baseline Cr appears to be around 1.5 Atherosclerotic heart disease of [place] coronary artery with other forms of angina pectoris hx of CAD with prior stenting of proximal LAD, LCx, RCA Ischemic cardiomyopathy Onychodystrophy Chronic anticoagulation Eliquis Osteoarthritis of spine Hypothyroidism Hypertension Hyperlipidemia Diabetes Depression Anemia Foot drop, left H/O acute myocardial infarction H/O deep venous thrombosis developed compartment syndrome Surgical History Peritoneal dialysis catheter in situ (06/15/21) History of appendectomy 1995 History of excision of mass 06/08/2019: Subcutaneous mass on back History of removal of Port-a-Cath Port-A-Cath in place H/O vasectomy Hx of cholecystectomy History of coronary artery stent placement 5x H/O skin graft History of inguinal hernia repair, bilateral 2000 H/O removal of testicle left H/O colonoscopy (11/14/20) 08/2015 H/O esophagogastroduodenoscopy (11/14/20) 08/2015 Family History Grandfather Cancer skin cancer Parkinson disease Brother Hypertension Father Heart disease Mother Hypertension Stroke Aneurysm Grandmother Aneurysm Other Crohn's disease Denies family history of Anesthesia complication Bleeding disorder Social History Smoking and tobacco/nicotine status: never used tobacco/nicotine Second hand smoke exposure: No Alcohol intake: former Year of sobriety/quit date alcohol: 2015 Former alcohol use details: Only holidays - last use 05.19.2015 Substance/Drug Use: never Adopted: No Caregiver/support person: No Lives independently: Yes Household members: spouse Housing: Apartment Marital status: Number of children: 2 Number of grandchildren: 0 Highest education level completed: High School Graduate service: No Current occupational status: disabled Pets and animals: Yes Pets & animals: dog(s) Leisure activites: games and other Leisure activities details: watching TV Sexually active: Yes Do you think of yourself as: Straight/Heterosexual Current gender identity: Male Shannon/Judaism: Jehovah'S Witness Special shannon needs: No Agree to transfusion: Yes Physical Exam 2 Narrative: EXAM NARRATIVE: Patient appears slightly older than stated age. He is alert, no distress, normal work of breathing. His heart rate is in the 50s. His radial pulses palpable. He has a fistula in his left upper extremity with a palpable thrill. He has some crackles in the bases of his lungs posteriorly. No JVD. Scarring bilateral lower extremities appears chronic. Const: COMMON NORMALS: no limitations, alert and well nourished EXAM LIMITATIONS: no altered mental status HENMT: COMMON NORMALS: normocephalic, atraumatic and external ears normal H EAD & SCALP: normocephalic and atraumatic EXTERNAL EAR: Yes external ears normal MOUTH: no muffled voice Eye: COMMON NORMALS: EOMs intact bilaterally, conjunctivae normal and no scleral icterus CONJUNCTIVA: Yes conjunctivae normal Neck/C-Spine: COMMON NORMALS: no JVD GENERAL: Yes normal visual inspection and Yes trachea midline Resp: COMMON NORMALS: normal respiratory effort and No use of accessory muscles Cardio: COMMON NORMALS: no JVD and regular rhythm RHYTHM: regular rhythm GI: COMMON NORMALS: Soft to palpation and non-tender PALPATION: Yes Soft to palpation and No Guarding due to palpation present (GI) Extremity: COMMON NORMALS: normal to inspection Neuro: COMMON NORMALS: moves all extremities, no focal motor deficits and no sensory deficits noted SENSORIUM/ORIENTATION: Yes alert SPEECH: speech normal Psych: COMMON NORMALS: mental status grossly normal, Normal thought process present, cooperative, normal affect and speech normal SPEECH: Yes normal speech THOUGHT PROCESS: Normal thought process present Skin: COMMON NORMALS: turgor normal and no jaundice GENERAL SKIN EXAM: t urgor normal Course 2 Vital Signs: Vital signs: Vital Signs Temperature 98.1 F 05/07/24 08:13 Pulse Rate 73 05/07/24 12:49 Respiratory Rate 18 05/07/24 12:02 Blood Pressure 159/81 05/07/24 12:49 Pulse Oximetry 98 05/07/24 12:49 Oxygen Delivery Me thod Room Air 05/07/24 10:02 MDM - Chest Pain Medical Decision Making Patient has a history of both cardiac and noncardiac chest pain. He does not appear to be in any decompensated state of heart failure at this time. Low suspicion for PE clinically as well as the fact that patient is taking anticoagulation. EKG today does not show any concerning active ischemic changes. Patient reports chest discomfort down to a 3 out of 10, which is about as low as I have seen and reported. Discomfort started at approximately 6:50 AM. We will get a baseline troponin and then a 2-hour troponin. Patient asked to report any changes in his condition. At this time low concern for pneumonia, worsening anemia. EKG #2 was obtained at 9:45 AM. It shows a sinus rhythm, rate 73, no concerning ST segment elevations or hyperacute T waves. No ectopy noted. Initial troponin was at the patient's baseline. A 2-hour troponin is trended down slightly. Overall, low suspicion for acute coronary syndrome. However, patient has significant coronary artery disease and will need to be monitored closely. Patient is in need of dialysis today and had like to get him over there while he can still complete it. I would like for him to follow-up with his divisional storekeeper in the next week or 2. Lab Data 05/07/24 08:46 05/07/24 09:10 Radiology Impressions Chest X-Ray 05/07/24 07:59 Impression: Cardiomegaly. Laboratory Results WBC 7.98 10^3/uL (3.29-11.43) 05/07/24 08:46 RBC 3.40 10^6/uL (3.85-5.65) L 05/07/24 08:46 Hgb 11.20 g/dL (11.27-16.99) L 05/07/24 08:46 Hct 33.6 % (37-53) L 05/07/24 08:46 MCV 98.8 fl (82-101) 05/07/24 08:46 MCH 32.9 pg (27-33) 05/07/24 08:46 MCHC 33.3 g/dL (30-55) 05/07/24 08:46 RDW 13.4 % (12.1-15.1) 05/07/24 08:46 Plt Count 253 10^3/cmm (157-399) 05/07/24 08:46 MPV 9.4 fL (7.4-10.4) 05/07/24 08:46 Neut % (Auto) 70.2 % 05/07/24 08:46 Lymph % (Auto) 19.3 % 05/07/24 08:46 [place] % (Auto) 7.9 % 05/07/24 08:46 Eos % (Auto) 1.4 % 05/07/24 08:46 Baso % (Auto) 0.8 % 05/07/24 08:46 Neut # (Auto) 5.61 10^3/uL (1.8-7.7) 05/07/24 08:46 Lymph # (Auto) 1.5 10^3/uL (0.8-4.8) 05/07/24 08:46 [place] # (Auto) 0.6 10^3/uL (0.2-0.9) 05/07/24 08:46 Eos # (Auto) 0.1 10^3/uL (0.0-0.8) 05/07/24 08:46 Baso # (Auto) 0.1 10^3/uL (0.0-0.1) 05/07/24 08:46 Nucleated RBC % (auto) 0 % 05/07/24 08:46 Nucleated RBCs # 0.0 /100WBC 05/07/24 08:46 Sodium 140 mmol/L (136-145) 05/07/24 09:10 Potassium 3.8 mmol/L (3.5-5.1) 05/07/24 09:10 Chloride 100 mmol/L (98-107) 05/07/24 09:10 Carbon Dioxide 28 mmol/L (22-29) 05/07/24 09:10 Anion Gap 15.8 (5-19) 05/07/24 09:10 BUN 35 mg/dL (6-20) H 05/07/24 09:10 Creatinine 3.3 mg/dL (0.7-1.2) H 05/07/24 09:10 GFR Calculation 19.6 mL/min (90-130) L 05/07/24 09:10 Glucose 198 mg/dL (65-115) H 05/07/24 09:10 Calculated Osmolality 304 mOsm/kg (285-295) H 05/07/24 09:10 Calcium 8.2 mg/dL (8.5-10.5) L 05/07/24 09:10 Troponin T Baseline 98 ng/L (0-15) H 05/07/24 09:10 Troponin T 120 Minute 93.79 ng/L (0-15) H 05/07/24 11:13 Delta Troponin T -4.21 ABS# (0-10) L 05/07/24 11:13 All radiology interpretation(s) finalized by discharge ED provider radiology interpretation(s): Chest x-ray 1 view. Previous sternotomy. Cardiomegaly. No visualized pleural effusions or focal infiltrates. No visualized pneumothorax. EKG Data EKG 1: Interpretation: Sinus rhythm, rate 78, QRS duration 106 ms suggesting intraventricular conduction delay, some nonspecific ST changes, no hyperacute T waves, no concerning ST segment elevations, no ectopy Discharge Plan Discharge Patient Disposition: Home Clinical Impression: Chest pain at rest Condition: Stable Prescriptions: No Action (DME) Diabetic Shoes with Custom insoles See Rx Instructions .Route .MEDSUPPLY Qty: 1 0RF Rx Instructions: As directed (DME) AFO to left See Rx Instructions .Route .MEDSUPPLY Qty: 1 0RF Rx Instructions: As directed by [facility] trazodone 100 mg tablet 300 mg PO BEDTIME PRN (Reason: insomia ) Qty: 90 11RF bupropion HCl 300 mg tablet extended release 24 hr 300 mg PO QAM Qty: 30 11RF buspirone 10 mg tablet 10 mg PO BID Qty: 60 11RF fluoxetine 40 mg capsule 40 mg PO QAM Qty: 30 11RF nifedipine 30 mg tablet extended release 30 mg PO DAILY Qty: 90 3RF ranolazine 1,000 mg tablet extended release 12 hr 1,000 mg PO BID Qty: 60 1RF colchicine 0.6 mg tablet 0.3 mg PO DAILY Qty: 60 0RF atorvastatin 40 mg tablet 40 mg PO QAM Qty: 90 2RF nitroglycerin [Nitrostat] 0.4 mg tablet, sublingual 0.4 mg SUBLINGUAL Q5M PRN (Reason: Chest Pain) Qty: 25 2RF Rx Instructions: do not exceed 3 doses per episode (DME) Dexcom G7 Sensor Device See Rx Instructions .ROUTE .COMPLEX Qty: 9 1RF Dose Instruction: CHANGE every 10 DAYS Rx Instructions: CHANGE every 10 DAYS Mounjaro 15 mg/0.5 mL pen injector See Rx Instructions .ROUTE .COMPLEX Qty: 2 2RF Dose Instruction: inject 15mg (0.5ml) SUBCUTANEOUSLY EVERY 7 DAYS Rx Instructions: inject 15mg (0.5ml) SUBCUTANEOUSLY EVERY 7 DAYS ON SATURDAY. levothyroxine 88 mcg tablet 88 mcg PO QAM gabapentin 100 mg capsule 100 mg PO BID isosorbide mononitrate 30 mg tablet extended release 24 hr See Rx Instructions .ROUTE .COMPLEX Qty: 30 1RF Rx Instructions: Take 30 mg daily, do not take on dialysis days tizanidine 2 mg tablet 2 mg PO BID tamsulosin 0.4 mg capsule 0.4 mg PO DAILY pantoprazole 40 mg Tablet,Delayed Release (Dr/Ec) 40 mg PO DAILY Qty: 30 0RF carvedilol 6.25 mg tablet 6.25 mg PO BID promethazine 25 mg tablet 25 mg PO Q6H PRN (Reason: Nausea) insulin degludec [Tresiba FlexTouch U-200] 200 unit/mL (3 mL) insulin pen 40 unit SUBCUT BEDTIME hydroxyzine HCl 50 mg tablet 100 mg PO BEDTIME PRN (Reason: insomnia) (DME) Dexcom G7 Plastic Joint Maker Misc MISCELLANEOUS diphenhydramine HCl [Benadryl Allergy] 25 mg Tablet 50 mg PO DAILY PRN (Reason: Allergy Symptoms) insulin lispro [Humalog KwikPen Insulin] 100 unit/mL insulin pen See Rx Instructions .ROUTE .COMPLEX Rx Instructions: Sliding scale subcutaneously twice a day as needed. RenaPlex-D 800 mcg-12.5 mg -2,000 unit tablet 1 tab PO DAILY aspirin 81 mg Tablet,Delayed Release (Dr/Ec) 81 mg PO DAILY Qty: 90 3RF Eliquis 2.5 mg tablet 2.5 mg PO BID Qty: 60 2RF sevelamer carbonate 800 mg Tablet 800 mg PO TID Rx Instructions: must administer with a meal/food bumetanide 2 mg tablet 2 mg PO BID Discharge Orders: Discharge ED (Routine); Ordered 05/07/24 Ordered By: Martin Candelaria Referrals: Garrison Mckinney M.D [Physician] - 05/11/24 Kp Montanez DO [Primary Care Provider] - Patient Instructions: Chest Pain (ED) Activity Restrictions/Additional Instructions: You have many reasons to have chest pain including coronary artery disease, chest wall pain, history of pericardial inflammation, and multiple others. Your cardiac troponins were stable. This does not rule out or help gauge her coronary artery disease. However he does tell us that you do not have an active heart attack. Please proceed to dialysis today. If you continue to have chest pain that is more frequent, lasting longer, or you are developing significant shortness of breath or other concomitant symptoms then please call your divisional storekeeper or return to the emergency department right away. Coding Level of Care Code ED Repair Clerk for Aaron Irene
[2024-05-07 08:59] LABS: Basophils # 0.1 10^3/uL (0.0-0.1); Basophils % 0.8 %; Eosinophils # 0.1 10^3/uL (0.0-0.8); Eosinophils % 1.4 %; Hematocrit 33.6 % (37-53); Lymphocytes # 1.5 10^3/uL (0.8-4.8); Lymphocytes % 19.3 %; Mean Corpuscular HGB Conc 33.3 g/dL (30-55); Mean Corpuscular Hemoglobin 32.9 pg (27-33); Mean Corpuscular Volume 98.8 fl (82-101); Mean Platelet Volume 9.4 fL (7.4-10.4); Monocytes # 0.6 10^3/uL (0.2-0.9); Monocytes % 7.9 %; Neutrophils # 5.61 10^3/uL (1.8-7.7); Neutrophils % 70.2 %; Nucleated Red Blood Cells % 0 %; Platelet Count 253 10^3/cmm (157-399); Red Cell Distribution Width 13.4 % (12.1-15.1); White Blood Count 7.98 10^3/uL (3.29-11.43)
[2024-05-07 09:45] LABS: Troponin(5th) Baseline 98 ng/L (0-15)
[2024-05-07 09:46] LABS: Anion Gap 15.8 (5-19); Blood Urea Nitrogen 35 mg/dL (6-20); Calcium 8.2 mg/dL (8.5-10.5); Carbon Dioxide 28 mmol/L (22-29); Chloride 100 mmol/L (98-107); Glomerular Filtration Rate 19.6 mL/min (90-130); Glucose 198 mg/dL (65-115); Osmolality Calculated 304 mOsm/kg (285-295); Potassium 3.8 mmol/L (3.5-5.1); Sodium 140 mmol/L (136-145)
[2024-05-07] MEDS: fentaNYL 50 mcg/mL INJ 2mL IVP (09:47)
--- NOTE | 2024-05-07 09:59 | ECG_ITS ---
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 Measurements Intervals [place] Rate: 73 P: 20 SD: 168 QRS: 55 QRSD: 106 T: 42 QT: 415 QTc: 460 Interpretive Statements SINUS RHYTHM LOW QRS VOLTAGE IN PRECORDIAL LEADS [QRS DEFLECTION < 1.0 mV IN CHEST LEADS] POSSIBLE ANTERIOR MYOCARDIAL INFARCTION , PROBABLY OLD [30 ms Q WAVE IN V3/V4, OR R < 0.2 mV IN V4] Compared to ECG 05/07/2024 07:47:31 Low QRS voltage now present Myocardial infarct finding still present Electronically Signed On 05-08-2024 00:03:00 REGULATORY AFFAIRS CONSULTANT by Karen Choi M.D. [id number]
[2024-05-07 10:02] VITALS: BP 159/71; PULSE 73; O2SAT 95
[2024-05-07 11:37] LABS: Troponin 5 2HR 93.79 ng/L (0-15)
[2024-05-07 11:40] LABS: Troponin 5 2HR Delta -4.21 ABS# (0-10)
[2024-05-07 12:02] VITALS: BP 144/58; RESP 18
[2024-05-07 12:49] VITALS: BP 159/81; PULSE 73; O2SAT 98
== END 2024-05-07 12:50 | disposition home or self-care (01) ==
PROVIDERS: Emergency Provider Emergency Medicine; PCP Internal Medicine
DX: R07.9 Chest pain, unspecified (principal); Z79.4 Long term (current) use of insulin; Z79.01 Long term (current) use of anticoagulants; Z95.5 Presence of coronary angioplasty implant and graft; E11.22 Type 2 diabetes mellitus with diabetic chronic kidney disease; I13.11 Hypertensive heart and chronic kidney disease without heart failure, with stage 5 chronic kidney disease, or end stage renal disease; N18.6 End stage renal disease; Z99.2 Dependence on renal dialysis; E78.5 Hyperlipidemia, unspecified; I25.118 Atherosclerotic heart disease of native coronary artery with other forms of angina pectoris
CPT/HCPCS: 71045; 80048; 84484; 85025; 93005; 96374; 99285; J3010

== ENCOUNTER → 2024-05-27 13:25 | Outpatient (BNVA) | payer MEDICARE, SELFPAY ==
[2024-03-20 13:31] VITALS: BP 125/53; BMI 35.0
== END ==
PROVIDERS: PCP Internal Medicine; Visit Provider Internal Medicine
DX: I42.9 Cardiomyopathy, unspecified (principal); I13.2 Hypertensive heart and chronic kidney disease with heart failure and with stage 5 chronic kidney disease, or end stage renal disease; E11.22 Type 2 diabetes mellitus with diabetic chronic kidney disease; I50.9 Heart failure, unspecified; Z87.891 Personal history of nicotine dependence; N18.6 End stage renal disease; Z79.4 Long term (current) use of insulin; R55 Syncope and collapse; I25.10 Atherosclerotic heart disease of native coronary artery without angina pectoris; E66.9 Obesity, unspecified; Z86.718 Personal history of other venous thrombosis and embolism; Z79.01 Long term (current) use of anticoagulants; Z68.35 Body mass index [BMI] 35.0-35.9, adult
CPT/HCPCS: 99214

== ENCOUNTER 2024-06-04 07:20 | Emergency (ER) | payer MEDICARE, SELFPAY ==
[2024-03-20 13:31] VITALS: BP 125/53; BMI 35.0
[2024-06-04 07:07] VITALS: BP 144/68; PULSE 80; RESP 18; TEMP 36.7; O2SAT 94
--- NOTE | 2024-06-04 07:07 | XR_ITS ---
WS: [id number] XR chest 1V portable [id number] REASON FOR EXAM: Chest pain FINDINGS: The chest is unchanged compared to 05/07/2024. Chemotherapy infusion reservoir over the left chest with trans left subclavian vein catheter into the midportion of the superior vena cava. Sternal sutures. Mild cardiomegaly. Calcified granulomatous disease in both hemithoraces. No acute pulmonary parenchymal or pleural findi ngs are noted. No lung nodule or lung mass. Mild degenerative spondylosis in the thoracic spine. No rib lesions. XR/XR chest 1V portable [id number] IMPRESSION: Stable chest with mild cardiomegaly and no acute abnormality.
--- NOTE | 2024-06-04 07:11 | ECG_ITS ---
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1970 Requested By: Fantasma Grubbs Order Number: [id number] Becky MD: SALIMA HYDE Measurements Intervals [place] Rate: 79 P: 16 OK: 207 QRS: -31 QRSD: 105 T: 48 QT: 403 QTc: 462 Interpretive Statements SINUS RHYTHM POSSIBLE LEFT ATRIAL ENLARGEMENT [-0.1mV P-WAVE IN V1/V2] LEFT AXIS DEVIATION [QRS AXIS < -30] POSSIBLE ANTERIOR MYOCARDIAL INFARCTION , OF INDETERMINATE AGE [30 ms Q WAVE IN V3/V4, OR R < 0.2 mV IN V4] Compared to ECG 05/07/2024 09:45:09 Left-axis deviation now present Myocardial infarct finding still present Electronically Signed On 06-05-2024 23:27:33 PACKAGE LINER by SALIMA HYDE [id number]
[2024-06-04 07:22] LABS: Basophils # 0.1 10^3/uL (0.0-0.1); Basophils % 0.8 %; Eosinophils # 0.3 10^3/uL (0.0-0.8); Hematocrit 32.9 % (37-53); Lymphocytes % 11.1 %; Mean Corpuscular Hemoglobin 32.5 pg (27-33); Mean Corpuscular Volume 95.4 fl (82-101); Mean Platelet Volume 9.6 fL (7.4-10.4); Monocytes # 0.7 10^3/uL (0.2-0.9); Monocytes % 7.7 %; Neutrophils # 6.87 10^3/uL (1.8-7.7); Neutrophils % 77.1 %; Nucleated Red Blood Cells % 0 %; Platelet Count 235 10^3/cmm (157-399); Red Blood Count 3.45 10^6/uL (3.85-5.65); Red Cell Distribution Width 12.8 % (12.1-15.1); White Blood Count 8.92 10^3/uL (3.29-11.43)
[2024-06-04 07:40] LABS: Troponin(5th) Baseline 47 ng/L (0-15)
[2024-06-04 07:43] LABS: Alanine Aminotransferase 9 U/L (0-41); Albumin Level 3.4 g/dL (3.5-5.2); Alkaline Phosphatase 113 U/L (40-130); Aspartate Amino Transferase 15 U/L (0-40); Blood Urea Nitrogen 22 mg/dL (6-20); Calcium 8.8 mg/dL (8.5-10.5); Carbon Dioxide 27 mmol/L (22-29); Chloride 97 mmol/L (98-107); Globulin 2.4 g/dL (1.3-4.6); Glomerular Filtration Rate 21.8 mL/min (90-130); Glucose 174 mg/dL (65-115); Magnesium 1.6 mg/dL (1.7-2.3); Osmolality Calculated 290 mOsm/kg (285-295); Phosphorus 2.5 mg/dL (2.5-4.5); Sodium 136 mmol/L (136-145); Total Bilirubin 0.3 mg/dL (0.15-1.2); Total Protein 5.8 g/dL (6.6-8.7)
[2024-06-04 07:44] LABS: Anion Gap 15.9 (5-19); Potassium 3.9 mmol/L (3.5-5.1)
--- NOTE | 2024-06-04 08:54 | ED_ITS ---
HPI - Chest Pain 2 General: Chief Complaint: Chest Pain Stated Complaint: cp Time Seen by Provider: 06/04/24 07:42 History of Present Illness: Chief complaint is chest pain. The patient describes left-sided chest pain that he woke up with at 4:00 this morning. He states this in his left upper chest and radiates into the left shoulder. He states he can feel it just a little bit in the left scapula. No sharp or tearing pain. He describes as a pressure. He states he has extensive heart disease with 7 cardiac stents. He states his last heart cath was about April he estimates to any . He denies any new shortness of breath. He does do dialysis and is scheduled to do dialysis today. He has not missed any dialysis. He does not feel that he has fluid overload. No leg pain or swelling. No history of PE or DVT. He tells me he takes aspirin Eliquis and Plavix. He denies any black or bloody stools. No fever or cough or hemoptysis. No abdominal pain. No vomiting or diarrhea. He states the pain is not affected by anything except for nitroglycerin did help it. It is not pleuritic. Is not positional or affected by activity. He states it has been constant at rest since 4:00 this morning. He states he took 3 nitroglycerin at home and had nitroglycerin and aspirin by EMS and he did have some improvement. 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 Cup Handle Machine Operator) diphenhydramine HCl 25 mg tablet 50 mg PO DAILY PRN Allergy Symptoms 05/02/23 06/04/24 (Benadryl Allergy) insulin lispro 100 unit/mL See Rx Instructions .Route .COMPLEX 05/02/23 06/04/24 subcutaneous pen (Humalog KwikPen (U-100) Insulin) gabapentin 100 mg capsule 100 mg PO BID 07/07/23 06/04/24 vit B,C-folic ac 800 mcg-zinc 12.5 1 tab PO BEDTIME 10/29/23 06/04/24 mg-selen-D3 2,000 unit-vit E tablet (RenaPlex-D) tamsulosin 0.4 mg capsule 0.4 mg PO DAILY 03/24/24 06/04/24 tizanidine 2 mg tablet 2 mg PO BID 03/24/24 06/04/24 bumetanide 2 mg tablet 2 mg PO BID 04/15/24 06/04/24 carvedilol 6.25 mg tablet 6.25 mg PO BID 04/21/24 06/04/24 hydroxyzine HCl 50 mg tablet 100 mg PO BEDTIME PRN insomnia 04/21/24 06/04/24 promethazine 25 mg tablet 25 mg PO Q6H PRN Nausea 04/21/24 06/04/24 insulin degludec 200 unit/mL (3 40 unit SUBCUT .AM 05/27/24 06/04/24 mL) subcutaneous pen (Tresiba FlexTouch U-200 insulin) sevelamer carbonate 800 mg tablet 800 mg PO BID 05/27/24 06/04/24 tirzepatide 15 mg/0.5 mL See Rx Instructions .Route .COMPLEX 05/27/24 06/04/24 subcutaneous pen injector (Jennifer) acetaminophen 500 mg tablet 1,000 mg PO QID PRN Pain 06/04/24 06/04/24 (Tylenol Extra Strength) Previous Rx's Medication Instructions Recorded atorvastatin 40 mg tablet 40 mg PO QAM #90 tabs 10/25/22 AFO to left #1 ea 07/25/23 Diabetic Shoes with Custom insoles #1 ea 07/25/23 nitroglycerin 0.4 mg sublingual 0.4 mg sublingual Q5M PRN Chest 08/27/23 tablet (Nitrostat) Pain #25 tabs isosorbide mononitrate 30 mg See Rx Instructions .Route 10/03/23 tablet,extended release 24 hr .COMPLEX #30 tabs apixaban 2.5 mg tablet (Eliquis) 2.5 mg PO BID #60 tabs 10/30/23 aspirin 81 mg tablet,delayed 81 mg PO DAILY #90 tabs 10/30/23 release pantoprazole 40 mg tablet,delayed 40 mg PO DAILY #30 tabs 03/26/24 release colchicine 0.6 mg tablet 0.3 mg (1/2 x 0.6 mg) PO DAILY #60 04/08/24 tabs nifedipine 30 mg tablet,extended 30 mg PO DAILY #90 tabs 04/08/24 release ranolazine 1,000 mg 1,000 mg PO BID #60 tabs 04/08/24 tablet,extended release,12 hr bupropion HCl 300 mg 24 hr tablet, 300 mg PO QAM #30 tabs 04/20/24 extended release buspirone 10 mg tablet 10 mg PO BID #60 tabs 04/20/24 fluoxetine 40 mg capsule 40 mg PO QAM #30 caps 04/20/24 trazodone 100 mg tablet 300 mg (3 x 100 mg) PO BEDTIME PRN 04/20/24 insomia #90 tabs blood-glucose sensor (Dexcom G7 #9 ea 05/29/24 Sensor device) Allergies Allergy/AdvReac Type Severity Reaction Status Date / Time Iodinated Contrast Media Allergy Severe ALGY-Difficulty Verified 05/27/24 13:35 Breathing iodine Allergy Severe ALGY-Difficulty Verified 05/27/24 13:35 Breathing metoclopramide [From Reglan] Allergy Severe ALGY-Difficulty Verified 05/27/24 13:35 Breathing nalbuphine [From Nubain] Allergy Severe ADR-Diarrhe Verified 05/27/24 13:35 a naproxen [From Naprosyn] Allergy Severe ADR-Vomitin Verified 05/27/24 13:35 g Sulfa (Sulfonamide Allergy Severe ALGY-Difficulty Verified 05/27/24 13:35 Antibiotics) Breathing ketorolac Allergy Intermediate ADR-Nausea Verified 05/27/24 13:35 ondansetron [From Zofran] Allergy Intermediate ADR-Abdominal Verified 05/27/24 13:35 Pain prochlorperazine Allergy Intermediate ADR-Irritab Verified 05/27/24 13:35 [From Compazine] le codeine AdvReac Severe ALGY-Anaphy Verified 05/27/24 13:35 laxis haloperidol [From Haldol] AdvReac Intermediate ADR-Irritab Verified 05/27/24 13:35 le PFSH ED 2 PFSH: Medical History Generalized anxiety disorder Major depressive disorder, recurrent severe without psychotic features Pericarditis Elevated troponin Essential hypertension Essential hypertension ESRD (end stage renal disease) Hypertension Psychiatric care 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 mellitus Chronic renal failure Chest pain Chest pain CRF (chronic renal failure) Chronic right SI joint pain Chronic systolic heart failure UTI (urinary tract infection) Peripheral arterial disease PVD (peripheral vascular disease) Worsening angina Angina at rest Chest pain ESRD (end stage renal disease) Uremic encephalopathy ESRD (end stage renal disease) D-dimer, elevated Acute on chronic congestive heart failure History of pulmonary embolism Diabetes Acute kidney injury superimposed on CKD GERD (gastroesophageal reflux disease) Alcohol use disorder, moderate, in sustained remission DVT (deep venous thrombosis) (~03/2020) Proximal left subclavian, basilic and brachial veins, started eliquis this stay, felt present prior to admission Chronic kidney disease -baseline Cr appears to be around 1.5 Atherosclerotic heart disease of [place] coronary artery with other forms of angina pectoris hx of CAD with prior stenting of proximal LAD, LCx, RCA Ischemic cardiomyopathy Onychodystrophy Chronic anticoagulation Eliquis Osteoarthritis of spine Hypothyroidism Hypertension Hyperlipidemia Diabetes Depression Anemia Foot drop, left H/O acute myocardial infarction H/O deep venous thrombosis developed compartment syndrome Surgical History Peritoneal dialysis catheter in situ (06/15/21) History of appendectomy 1995 History of excision of mass 06/08/2019: Subcutaneous mass on back History of removal of Port-a-Cath Port-A-Cath in place H/O vasectomy Hx of cholecystectomy History of coronary artery stent placement 5x H/O skin graft History of inguinal hernia repair, bilateral 2000 H/O removal of testicle left H/O colonoscopy (11/14/20) 08/2015 H/O esophagogastroduodenoscopy (11/14/20) 08/2015 Family History Grandfather Cancer skin cancer Parkinson disease Brother Hypertension Father Heart disease Mother Hypertension Stroke Aneurysm Grandmother Aneurysm Other Crohn's disease Denies family history of Anesthesia complication Bleeding disorder Social History Smoking and tobacco/nicotine status: former use of tobacco/nicotine Second hand smoke exposure: No Alcohol intake: former Year of sobriety/quit date alcohol: 2016 Former alcohol use details: Only holidays - last use 05.19.2015 Substance/Drug Use: never Adopted: No Caregiver/support person: No Lives independently: Yes Household members: spouse Housing: Apartment Marital status: Number of children: 2 Number of grandchildren: 0 Highest education level completed: High School Graduate service: No Current occupational status: disabled Pets and animals: Yes Pets & animals: dog(s) Leisure activites: games and other Leisure activities details: watching TV Sexually active: Yes Do you think of yourself as: Straight/Heterosexual Current gender identity: Male Shannon/Congregation: [employer] Special shannon needs: No Agree to transfusion: Yes Physical Exam 2 Narrative: EXAM NARRATIVE: Patient sitting up alert oriented no acute distress. Neck is supple. Lung sounds are clear. Heart regular rhythm. Abdomen soft nontender. No calf tenderness or pitting edema. He has chronicPostsurgical changes to his legs.Patient moves his extremities freely. No evident focal neurologic deficit. He moves his left shoulder freely. Course 2 Vital Signs: Vital signs: Vital Signs Temperature 98.1 F 06/04/24 07:07 Pulse Rate 79 06/04/24 10:55 Respiratory Rate 18 06/04/24 07:07 Blood Pressure 153/91 06/04/24 10:55 Pulse Oximetry 94 06/04/24 10:55 Oxygen Delivery Me thod Room Air 06/04/24 07:07 MDM - Chest Pain Medical Decision Making Patient presents complaining of chest pressure. He states this has been a recurrent issue for him. He has known coronary artery disease. It is not pleuritic. No new shortness of breath. Patient is on Eliquis aspirin and Plavix he tells me. PE would be unlikely based on exam history and his anticoagulation per his report. Patient does do dialysis. Fluid overload considered although patient denies any shortness of breath orthopnea or leg swelling. He has no edema on exam. Cardiac etiology considered including acute [place]. Patient EKG ordered and to my interpretation showsSinus rhythm with a rate of [address] segment changes. I ordered troponin, CBC CMP and chest x-ray. Initial troponin was indeterminate. CBC and CMP show elevated creatinine consistent with his chronic end-stage renal disease. His magnesium was low. Patient is due for dialysis today. Will obtain delta troponin.Patient symptoms are not sharp or tearing or suggestive of dissection. Delta troponin is negative. Chest x-ray negative for acute process per radiology. Reasonable to discharge with continued follow-up for dialysis and follow-up with his blade operator. I discussed with patient he agrees with plan after informed discussion. Lab Data 06/04/24 07:15 06/04/24 07:15 Radiology Impressions Chest X-Ray 06/04/24 07:07 IMPRESSION: Stable chest with mild cardiomegaly and no acute abnormality. Laboratory Results WBC 8.92 10^3/uL (3.29-11.43) 06/04/24 07:15 RBC 3.45 10^6/uL (3.85-5.65) L 06/04/24 07:15 Hgb 11.20 g/dL (11.27-16.99) L 06/04/24 07:15 Hct 32.9 % (37-53) L 06/04/24 07:15 MCV 95.4 fl (82-101) 06/04/24 07:15 MCH 32.5 pg (27-33) 06/04/24 07:15 MCHC 34.0 g/dL (30-55) 06/04/24 07:15 RDW 12.8 % (12.1-15.1) 06/04/24 07:15 Plt Count 235 10^3/cmm (157-399) 06/04/24 07:15 MPV 9.6 fL (7.4-10.4) 06/04/24 07:15 Neut % (Auto) 77.1 % 06/04/24 07:15 Lymph % (Auto) 11.1 % 06/04/24 07:15 [place] % (Auto) 7.7 % 06/04/24 07:15 Eos % (Auto) 3.0 % 06/04/24 07:15 Baso % (Auto) 0.8 % 06/04/24 07:15 Neut # (Auto) 6.87 10^3/uL (1.8-7.7) 06/04/24 07:15 Lymph # (Auto) 1.0 10^3/uL (0.8-4.8) 06/04/24 07:15 [place] # (Auto) 0.7 10^3/uL (0.2-0.9) 06/04/24 07:15 Eos # (Auto) 0.3 10^3/uL (0.0-0.8) 06/04/24 07:15 Baso # (Auto) 0.1 10^3/uL (0.0-0.1) 06/04/24 07:15 Nucleated RBC % (auto) 0 % 06/04/24 07:15 Nucleated RBCs # 0.0 /100WBC 06/04/24 07:15 Sodium 136 mmol/L (136-145) 06/04/24 07:15 Potassium 3.9 mmol/L (3.5-5.1) 06/04/24 07:15 Chloride 97 mmol/L (98-107) L 06/04/24 07:15 Carbon Dioxide 27 mmol/L (22-29) 06/04/24 07:15 Anion Gap 15.9 (5-19) 06/04/24 07:15 BUN 22 mg/dL (6-20) H 06/04/24 07:15 Creatinine 3.0 mg/dL (0.7-1.2) H 06/04/24 07:15 GFR Calculation 21.8 mL/min (90-130) L 06/04/24 07:15 Glucose 174 mg/dL (65-115) H 06/04/24 07:15 Calculated Osmolality 290 mOsm/kg (285-295) 06/04/24 07:15 Calcium 8.8 mg/dL (8.5-10.5) 06/04/24 07:15 Phosphorus 2.5 mg/dL (2.5-4.5) 06/04/24 07:15 Magnesium 1.6 mg/dL (1.7-2.3) L 06/04/24 07:15 Total Bilirubin 0.3 mg/dL (0.15-1.2) 06/04/24 07:15 AST 15 U/L (0-40) 06/04/24 07:15 ALT 9 U/L (0-41) 06/04/24 07:15 Alkaline Phosphatase 113 U/L (40-130) 06/04/24 07:15 Troponin T Baseline 47 ng/L (0-15) H 06/04/24 07:15 Troponin T 120 Minute 45.77 ng/L (0-15) H 06/04/24 09:21 Delta Troponin T -1.23 ABS# (0-10) L 06/04/24 09:21 Total Protein 5.8 g/dL (6.6-8.7) L 06/04/24 07:15 Albumin 3.4 g/dL (3.5-5.2) L 06/04/24 07:15 Globulin 2.4 g/dL (1.3-4.6) 06/04/24 07:15 All radiology interpretation(s) finalized by discharge Discharge Plan Discharge Patient Disposition: Home Clinical Impression: Chronic chest pain Condition: Stable Prescriptions: No Action (DME) Diabetic Shoes with Custom insoles See Rx Instructions .Route .MEDSUPPLY Qty: 1 0RF Rx Instructions: As directed (DME) AFO to left See Rx Instructions .Route .MEDSUPPLY Qty: 1 0RF Rx Instructions: As directed by [facility] trazodone 100 mg tablet 300 mg PO BEDTIME PRN (Reason: insomia ) Qty: 90 11RF bupropion HCl 300 mg tablet extended release 24 hr 300 mg PO QAM Qty: 30 11RF buspirone 10 mg tablet 10 mg PO BID Qty: 60 11RF fluoxetine 40 mg capsule 40 mg PO QAM Qty: 30 11RF nifedipine 30 mg tablet extended release 30 mg PO DAILY Qty: 90 3RF ranolazine 1,000 mg tablet extended release 12 hr 1,000 mg PO BID Qty: 60 1RF colchicine 0.6 mg tablet 0.3 mg PO DAILY Qty: 60 0RF Mounjaro 15 mg/0.5 mL pen injector See Rx Instructions .ROUTE .COMPLEX Dose Instruction: inject 15mg (0.5ml) SUBCUTANEOUSLY EVERY 7 DAYS Rx Instructions: inject 15mg (0.5ml) SUBCUTANEOUSLY EVERY 7 DAYS ON SATURDAY atorvastatin 40 mg tablet 40 mg PO QAM Qty: 90 2RF nitroglycerin [Nitrostat] 0.4 mg tablet, sublingual 0.4 mg SUBLINGUAL Q5M PRN (Reason: Chest Pain) Qty: 25 2RF Rx Instructions: do not exceed 3 doses per episode (DME) Dexcom G7 Sensor Device See Rx Instructions .ROUTE .COMPLEX Qty: 9 1RF Dose Instruction: CHANGE every 10 DAYS Rx Instructions: CHANGE every 10 DAYS levothyroxine 88 mcg tablet 88 mcg PO QAM gabapentin 100 mg capsule 100 mg PO BID isosorbide mononitrate 30 mg tablet extended release 24 hr See Rx Instructions .ROUTE .COMPLEX Qty: 30 1RF Rx Instructions: Take 30 mg daily, do not take on dialysis days tizanidine 2 mg tablet 2 mg PO BID tamsulosin 0.4 mg capsule 0.4 mg PO DAILY pantoprazole 40 mg Tablet,Delayed Release (Dr/Ec) 40 mg PO DAILY Qty: 30 0RF carvedilol 6.25 mg tablet 6.25 mg PO BID promethazine 25 mg tablet 25 mg PO Q6H PRN (Reason: Nausea) hydroxyzine HCl 50 mg tablet 100 mg PO BEDTIME PRN (Reason: insomnia) insulin degludec [Tresiba FlexTouch U-200] 200 unit/mL (3 mL) insulin pen 40 unit SUBCUT .AM (DME) Dexcom G7 Paper Cup Handle Machine Operator Misc MISCELLANEOUS diphenhydramine HCl [Benadryl Allergy] 25 mg Tablet 50 mg PO DAILY PRN (Reason: Allergy Symptoms) insulin lispro [Humalog KwikPen Insulin] 100 unit/mL insulin pen See Rx Instructions .ROUTE .COMPLEX Rx Instructions: Sliding scale subcutaneously twice a day as needed. RenaPlex-D 800 mcg-12.5 mg -2,000 unit tablet 1 tab PO BEDTIME aspirin 81 mg Tablet,Delayed Release (Dr/Ec) 81 mg PO DAILY Qty: 90 3RF Eliquis 2.5 mg tablet 2.5 mg PO BID Qty: 60 2RF bumetanide 2 mg tablet 2 mg PO BID sevelamer carbonate 800 mg tablet 800 mg PO BID Rx Instructions: must administer with a meal/food acetaminophen [Tylenol Extra Strength] 500 mg Tablet 1,000 mg PO QID PRN (Reason: Pain) Discharge Orders: Discharge ED (Routine); Ordered 06/04/24 Ordered By: Antonio Hsu Referrals: Kp Montanez DO [Primary Care Provider] - Activity Restrictions/Additional Instructions: Please follow-up on your test results with your doctor. Follow-up for dialysis as scheduled. Please follow-up with your blade operator. Please come back if new or concerning symptoms including chest pain or shortness of breath, abdominal pain, any concerns or worsening Coding Level of Care Code ED Aircraft Engineer for Aaron Irene
--- NOTE | 2024-06-04 09:07 | ECG_ITS ---
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
[2024-06-04 09:47] LABS: Troponin 5 2HR 45.77 ng/L (0-15)
[2024-06-04 09:48] LABS: Troponin 5 2HR Delta -1.23 ABS# (0-10)
[2024-06-04 10:55] VITALS: BP 153/91; PULSE 79; O2SAT 94
== END 2024-06-04 10:56 | disposition home or self-care (01) ==
PROVIDERS: Emergency Medicine; Emergency Provider Emergency Medicine; PCP Internal Medicine
DX: R07.9 Chest pain, unspecified (principal); Z79.4 Long term (current) use of insulin; Z79.01 Long term (current) use of anticoagulants; Z87.891 Personal history of nicotine dependence; E11.22 Type 2 diabetes mellitus with diabetic chronic kidney disease; I13.2 Hypertensive heart and chronic kidney disease with heart failure and with stage 5 chronic kidney disease, or end stage renal disease; I50.22 Chronic systolic (congestive) heart failure; N18.6 End stage renal disease; I25.118 Atherosclerotic heart disease of native coronary artery with other forms of angina pectoris; E78.5 Hyperlipidemia, unspecified
CPT/HCPCS: 12345; 71045; 80053; 83735; 84100; 84484; 85025; 93005; 99285

== ENCOUNTER 2024-06-16 11:12 | Emergency (ER) | payer MEDICARE, SELFPAY ==
[2024-03-20 13:31] VITALS: BP 125/53; BMI 35.0
[2024-06-16] VITALS (7 sets, daily range): BP systolic 135–163; BP diastolic 52–82; PULSE 79–89; RESP 16–20; TEMP 36.8; O2SAT 91–92; BMI 29.9
--- NOTE | 2024-06-16 11:14 | XR_ITS ---
WS: [id number] Exam: XR chest 1V portable [id number] Date/Time of Exam: 06/16/2024 11:49 AM Reason For Exam: cp Comparison 06/04/2024. The lungs are fully expanded and clear. Normal cardiomediastinal silhouette. Signs of median sternoto my and coronary artery stenting. LEFT subclavian port ends in the lower one third of the SVC. Unremar kable bony structures. XR/XR chest 1V portable [id number] IMPRESSION: 1. No acute cardiopulmonary finding.
--- NOTE | 2024-06-16 11:18 | ECG_ITS ---
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 Measurements Intervals [place] Rate: 88 P: 44 SD: 195 QRS: 9 QRSD: 111 T: 47 QT: 368 QTc: 447 Interpretive Statements SINUS RHYTHM POSSIBLE LEFT ATRIAL ENLARGEMENT [-0.1mV P-WAVE IN V1/V2] POSSIBLE ANTERIOR MYOCARDIAL INFARCTION , OF INDETERMINATE AGE [30 ms Q WAVE IN V3/V4, OR R < 0.2 mV IN V4] Compared to ECG 06/04/2024 08:46:33 Left-axis deviation no longer present Myocardial infarct finding still present Electronically Signed On 06-18-2024 11:23:32 CAN FILLING AND CLOSING MACHINE TENDER by Garrison Mckinney M.D. [id number]
--- NOTE | 2024-06-16 11:23 | ED_ITS ---
HPI - Chest Pain 2 General: Chief Complaint: Chest Pain Stated Complaint: Chest Pain Time Seen by Provider: 06/16/24 11:14 Source: patient and EMS Mode of arrival: EMS Limitations: no limitations History of Present Illness: 54-year-old male who arrival in the ER h as a history of end-stage renal disease on dialysis states has been having some chest pain over the last 2 days. Patient states it has been a sharp pain in the center of his chest he was sent here after receiving his dialysis today. He denies any vomitings had some mild dyspnea denies any cough. Associated symptoms: Reports dyspnea; Deny abdominal pain, fever(s), nausea or vomiting Related Data Home Medications Medication Instructions Recorded Confirmed diphenhydramine HCl 25 mg tablet 50 mg PO DAILY PRN Allergy Symptoms 05/02/23 06/16/24 (Benadryl Allergy) insulin lispro 100 unit/mL See Rx Instructions .Route .COMPLEX 05/02/23 06/16/24 subcutaneous pen (Humalog KwikPen (U-100) Insulin) vit B,C-folic ac 800 mcg-zinc 12.5 1 tab PO BEDTIME 10/29/23 06/16/24 mg-selen-D3 2,000 unit-vit E tablet (RenaPlex-D) tamsulosin 0.4 mg capsule 0.4 mg PO DAILY 03/24/24 06/16/24 tizanidine 2 mg tablet 2 mg PO BID 03/24/24 06/16/24 bumetanide 2 mg tablet 2 mg PO BID 04/15/24 06/16/24 carvedilol 6.25 mg tablet 6.25 mg PO BID 04/21/24 06/16/24 hydroxyzine HCl 50 mg tablet 100 mg PO BEDTIME PRN insomnia 04/21/24 06/16/24 promethazine 25 mg tablet 25 mg PO Q6H PRN Nausea 04/21/24 06/16/24 sevelamer carbonate 800 mg tablet 800 mg PO BID 05/27/24 06/16/24 tirzepatide 15 mg/0.5 mL See Rx Instructions .Route .COMPLEX 05/27/24 06/16/24 subcutaneous pen injector (Mounjaro) acetaminophen 500 mg tablet 1,000 mg PO QID PRN Pain 06/04/24 06/16/24 (Tylenol Extra Strength) hydrocodone 5 mg-acetaminophen 325 1 tab PO Q6H 06/16/24 06/16/24 mg tablet metoprolol tartrate 25 mg tablet 12.5 mg PO BID 06/16/24 06/16/24 Previous Rx's Medication Instructions Recorded atorvastatin 40 mg tablet 40 mg PO QAM #90 tabs 10/25/22 nitroglycerin 0.4 mg sublingual 0.4 mg sublingual Q5M PRN Chest 08/27/23 tablet (Nitrostat) Pain #25 tabs isosorbide mononitrate 30 mg See Rx Instructions .Route 10/03/23 tablet,extended release 24 hr .COMPLEX #30 tabs aspirin 81 mg tablet,delayed 81 mg PO DAILY #90 tabs 10/30/23 release pantoprazole 40 mg tablet,delayed 40 mg PO DAILY #30 tabs 03/26/24 release colchicine 0.6 mg tablet 0.3 mg (1/2 x 0.6 mg) PO DAILY #60 04/08/24 tabs nifedipine 30 mg tablet,extended 30 mg PO DAILY #90 tabs 04/08/24 release ranolazine 1,000 mg 1,000 mg PO BID #60 tabs 04/08/24 tablet,extended release,12 hr bupropion HCl 300 mg 24 hr tablet, 300 mg PO QAM #30 tabs 04/20/24 extended release buspirone 10 mg tablet 10 mg PO BID #60 tabs 04/20/24 fluoxetine 40 mg capsule 40 mg PO QAM #30 caps 04/20/24 trazodone 100 mg tablet 300 mg (3 x 100 mg) PO BEDTIME PRN 04/20/24 insomia #90 tabs Allergies Allergy/AdvReac Type Severity Reaction Status Date / Time Iodinated Contrast Media Allergy Severe ALGY-Difficulty Verified 06/09/24 13:26 Breathing iodine Allergy Severe ALGY-Difficulty Verified 06/09/24 13:26 Breathing metoclopramide [From Reglan] Allergy Severe ALGY-Difficulty Verified 06/09/24 13:26 Breathing nalbuphine [From Nubain] Allergy Severe ADR-Diarrhe Verified 06/09/24 13:26 a naproxen [From Naprosyn] Allergy Severe ADR-Vomitin Verified 06/09/24 13:26 g Sulfa (Sulfonamide Allergy Severe ALGY-Difficulty Verified 06/09/24 13:26 Antibiotics) Breathing ketorolac Allergy Intermediate ADR-Nausea Verified 06/09/24 13:26 ondansetron [From Zofran] Allergy Intermediate ADR-Abdominal Verified 06/09/24 13:26 Pain prochlorperazine Allergy Intermediate ADR-Irritab Verified 06/09/24 13:26 [From Compazine] le codeine AdvReac Severe ALGY-Anaphy Verified 06/09/24 13:26 laxis haloperidol [From Haldol] AdvReac Intermediate ADR-Irritab Verified 06/09/24 13:26 le Review of Systems 2 Const: Denies: fever(s), chills, body aches or change in appetite ENMT: Denies: throat pain or dental pain Card: Reports: chest pain Resp: Reports: dyspnea GI: Denies: abdominal pain, nausea, vomiting or diarrhea Musc: Denies: neck pain or back pain Skin/Breast: Denies: rash Neuro: Denies: headache(s) PFSH ED 2 PFSH: Medical History Generalized anxiety disorder Major depressive disorder, recurrent severe without psychotic features Pericarditis Elevated troponin Essential hypertension Essential hypertension ESRD (end stage renal disease) Hypertension Psychiatric care 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 mellitus Chronic renal failure Chest pain Chest pain CRF (chronic renal failure) Chronic right SI joint pain Chronic systolic heart failure UTI (urinary tract infection) Peripheral arterial disease PVD (peripheral vascular disease) Worsening angina Angina at rest Chest pain ESRD (end stage renal disease) Uremic encephalopathy ESRD (end stage renal disease) D-dimer, elevated Acute on chronic congestive heart failure History of pulmonary embolism Diabetes Acute kidney injury superimposed on CKD GERD (gastroesophageal reflux disease) Alcohol use disorder, moderate, in sustained remission DVT (deep venous thrombosis) (~03/2020) Proximal left subclavian, basilic and brachial veins, started eliquis this stay, felt present prior to admission Chronic kidney disease -baseline Cr appears to be around 1.5 Atherosclerotic heart disease of [place] coronary artery with other forms of angina pectoris hx of CAD with prior stenting of proximal LAD, LCx, RCA Ischemic cardiomyopathy Onychodystrophy Chronic anticoagulation Eliquis Osteoarthritis of spine Hypothyroidism Hypertension Hyperlipidemia Diabetes Depression Anemia Foot drop, left H/O acute myocardial infarction H/O deep venous thrombosis developed compartment syndrome Surgical History Peritoneal dialysis catheter in situ (06/15/21) History of appendectomy 1995 History of excision of mass 06/08/2019: Subcutaneous mass on back History of removal of Port-a-Cath Port-A-Cath in place H/O vasectomy Hx of cholecystectomy History of coronary artery stent placement 5x H/O skin graft History of inguinal hernia repair, bilateral 2000 H/O removal of testicle left H/O colonoscopy (11/14/20) 08/2015 H/O esophagogastroduodenoscopy (11/14/20) 08/2015 Family History Grandfather Cancer skin cancer Parkinson disease Brother Hypertension Father Heart disease Mother Hypertension Stroke Aneurysm Grandmother Aneurysm Other Crohn's disease Denies family history of Anesthesia complication Bleeding disorder Social History Smoking and tobacco/nicotine status: former use of tobacco/nicotine Second hand smoke exposure: No Alcohol intake: former Year of sobriety/quit date alcohol: 2016 Former alcohol use details: Only holidays - last use 05.19.2015 Substance/Drug Use: never Adopted: No Caregiver/support person: No Lives independently: Yes Household members: spouse Housing: Apartment Marital status: Number of children: 2 Number of grandchildren: 0 Highest education level completed: High School Graduate service: No Current occupational status: disabled Pets and animals: Yes Pets & animals: dog(s) Leisure activites: games and other Leisure activities details: watching TV Sexually active: Yes Do you think of yourself as: Straight/Heterosexual Current gender identity: Male Shannon/Muslim: Muslim Special shannon needs: No Agree to transfusion: Yes Physical Exam 2 Const: COMMON NORMALS: no acute distress, patient oriented x3 and healthy appearing HENMT: COMMON NORMALS: normocephalic and atraumatic HEAD & SCALP: n ormocephalic and atraumatic Neck/C-Spine: COMMON NORMALS: full ROM and supple Chest: COMMONS NORMALS: normal inspection of the chest and normal palpation of entire chest wall Resp: COMMON NORMALS: normal respiratory effort, No retractions, No use of accessory muscles and clear to auscultation bilaterally AUSCULTATION: clear to auscultation bilaterally Cardio: COMMON NORMALS: regular rate, regular rhythm and No murmurs present (Cardio) RATE: regular rate RHYTHM: regular rhythm Extremity: COMMON NORMALS: normal to inspection and full ROM Neuro: COMMON NORMALS: patient oriented x3, moves all extremities and no focal motor deficits Psych: COMMON NORMALS: mental status grossly normal, Normal thought process present and cooperative THOUGHT PROCESS: Normal thought process present Skin: COMMON NORMALS: no rashes or lesions noted and no wounds GENERAL SKIN EXAM: no rashes or lesions noted Course 2 Vital Signs: Vital signs: Vital Signs Temperature 98.2 F 06/16/24 11:13 Pulse Rate 79 06/16/24 17:08 Respiratory Rate 18 06/16/24 16:31 Blood Pressure 156/52 06/16/24 17:08 Pulse Oximetry 91 06/16/24 17:08 Oxygen Delivery Me thod Room Air 06/16/24 16:31 MDM - Chest Pain Medical Decision Making Patient presents here with chest pain been seen her multiple times with chest pain in the past his troponins here at his baseline he has no signs of acute coronary syndrome he has no signs of pulmonary embolism he stable for discharge he is to follow-up with his PCP and return if worsening he understands agrees to plan. Medical Records I reviewed the patient's medical records. Lab Data I reviewed the patient's lab results. 06/16/24 14:26 06/16/24 14:26 Radiology Impressions Chest X-Ray 06/16/24 11:14 IMPRESSION: 1. No acute cardiopulmonary finding. Laboratory Results WBC 10.27 10^3/uL (3.29-11.43) 06/16/24 14:26 Corrected WBC Cancelled 06/16/24 13:55 RBC 3.44 10^6/uL (3.85-5.65) L 06/16/24 14:26 Hgb 11.00 g/dL (11.27-16.99) L 06/16/24 14:26 Hct 32.7 % (37-53) L 06/16/24 14:26 MCV 95.1 fl (82-101) 06/16/24 14: MCH 32.0 pg (27-33) 06/16/24 14: MCHC 33.6 g/dL (30-55) 06/16/24 14: RDW 14.0 % (12.1-15.1) 06/16/24 14: Plt Count 229 10^3/cmm (157-399) 06/16/24 14:26 MPV 9.7 fL (7.4-10.4) 06/16/24 14:26 Gran % Cancelled 06/16/24 13:55 Neut % (Auto) 80.6 % 06/16/24 14:26 Lymph % (Auto) 11.5 % 06/16/24 14:26 [place] % (Auto) 6.7 % 06/16/24 14:26 Eos % (Auto) 0.5 % 06/16/24 14:26 Baso % (Auto) 0.4 % 06/16/24 14:26 Neut # (Auto) 8.28 10^3/uL (1.8-7.7) H 06/16/24 14:26 Lymph # (Auto) 1.2 10^3/uL (0.8-4.8) 06/16/24 14:26 [place] # (Auto) 0.7 10^3/uL (0.2-0.9) 06/16/24 14:26 Eos # (Auto) 0.1 10^3/uL (0.0-0.8) 06/16/24 14:26 Baso # (Auto) 0.0 10^3/uL (0.0-0.1) 06/16/24 14:26 Absolute Gran (auto) Cancelled 06/16/24 13:55 Nucleated RBC % (auto) 0 % 06/16/24 14: Nucleated RBCs # 0.0 /100WBC 06/16/24 14: PT 13.00 SECONDS (12.1-14.9) 06/16/24 14: INR 0.92 (0.8-1.2) 06/16/24 14:26 Sodium 137 mmol/L (136-145) 06/16/24 14:26 Potassium 3.7 mmol/L (3.5-5.1) 06/16/24 14:26 Chloride 97 mmol/L (98-107) L 06/16/24 14: Carbon Dioxide 27 mmol/L (22-29) 06/16/24 14:26 Anion Gap 16.7 (5-19) 06/16/24 14:26 BUN 13 mg/dL (6-20) 06/16/24 14:26 Creatinine 2.2 mg/dL (0.7-1.2) H 06/16/24 14:26 GFR Calculation 31.1 mL/min (90-130) L 06/16/24 14:26 Glucose 94 mg/dL (65-115) 06/16/24 14:26 Calculated Osmolality 284 mOsm/kg (285-295) L 06/16/24 14:26 Calcium 8.2 mg/dL (8.5-10.5) L 06/16/24 14:26 Total Bilirubin 0.7 mg/dL (0.15-1.2) 06/16/24 14:26 AST 26 U/L (0-40) 06/16/24 14:26 ALT 15 U/L (0-41) 06/16/24 14:26 Alkaline Phosphatase 114 U/L (40-130) 06/16/24 14:26 Troponin T Baseline 69 ng/L (0-15) H 06/16/24 14:26 Troponin T 120 Minute 72.11 ng/L (0-15) H 06/16/24 15:42 Delta Troponin T 3.11 ABS# (0-10) 06/16/24 15:42 Total Protein 5.6 g/dL (6.6-8.7) L 06/16/24 14:26 Albumin 3.5 g/dL (3.5-5.2) 06/16/24 14:26 Globulin 2.1 g/dL (1.3-4.6) 06/16/24 14:26 All radiology interpretation(s) finalized by discharge EKG Data EKG 1: I personally reviewed and interpreted this EKG as follows: EKG interpretation date: 06/16/24 EKG interpretation time: 11:18 Interpretation: nsr hr [address] elevation qrs 111 qtc 414 Discharge Plan Discharge Patient Disposition: Home Clinical Impression: Chest pain Condition: Stable Prescriptions: No Action trazodone 100 mg tablet 300 mg PO BEDTIME PRN (Reason: insomia ) Qty: 90 11RF bupropion HCl 300 mg tablet extended release 24 hr 300 mg PO QAM Qty: 30 11RF buspirone 10 mg tablet 10 mg PO BID Qty: 60 11RF fluoxetine 40 mg capsule 40 mg PO QAM Qty: 30 11RF nifedipine 30 mg tablet extended release 30 mg PO DAILY Qty: 90 3RF ranolazine 1,000 mg tablet extended release 12 hr 1,000 mg PO BID Qty: 60 1RF colchicine 0.6 mg tablet 0.3 mg PO DAILY Qty: 60 0RF Mounjaro 15 mg/0.5 mL pen injector See Rx Instructions .ROUTE .COMPLEX Dose Instruction: inject 15mg (0.5ml) SUBCUTANEOUSLY EVERY 7 DAYS Rx Instructions: inject 15mg (0.5ml) SUBCUTANEOUSLY EVERY 7 DAYS ON SATURDAY atorvastatin 40 mg tablet 40 mg PO QAM Qty: 90 2RF nitroglycerin [Nitrostat] 0.4 mg tablet, sublingual 0.4 mg SUBLINGUAL Q5M PRN (Reason: Chest Pain) Qty: 25 2RF Rx Instructions: do not exceed 3 doses per episode isosorbide mononitrate 30 mg tablet extended release 24 hr See Rx Instructions .ROUTE .COMPLEX Qty: 30 1RF Rx Instructions: Take 30 mg daily, do not take on dialysis days tizanidine 2 mg tablet 2 mg PO BID tamsulosin 0.4 mg capsule 0.4 mg PO DAILY pantoprazole 40 mg Tablet,Delayed Release (Dr/Ec) 40 mg PO DAILY Qty: 30 0RF carvedilol 6.25 mg tablet 6.25 mg PO BID promethazine 25 mg tablet 25 mg PO Q6H PRN (Reason: Nausea) hydroxyzine HCl 50 mg tablet 100 mg PO BEDTIME PRN (Reason: insomnia) diphenhydramine HCl [Benadryl Allergy] 25 mg Tablet 50 mg PO DAILY PRN (Reason: Allergy Symptoms) insulin lispro [Humalog KwikPen Insulin] 100 unit/mL insulin pen See Rx Instructions .ROUTE .COMPLEX Rx Instructions: Sliding scale subcutaneously twice a day as needed. RenaPlex-D 800 mcg-12.5 mg -2,000 unit tablet 1 tab PO BEDTIME aspirin 81 mg Tablet,Delayed Release (Dr/Ec) 81 mg PO DAILY Qty: 90 3RF bumetanide 2 mg tablet 2 mg PO BID sevelamer carbonate 800 mg tablet 800 mg PO BID Rx Instructions: must administer with a meal/food acetaminophen [Tylenol Extra Strength] 500 mg Tablet 1,000 mg PO QID PRN (Reason: Pain) hydrocodone-acetaminophen 5-325 mg tablet 1 tab PO Q6H metoprolol tartrate 25 mg tablet 12.5 mg PO BID Discharge Orders: Discharge ED (Routine); Ordered 06/16/24 Ordered By: Moses Gauthier Referrals: Kp Montanez DO [Primary Care Provider] - Discharge Diet: Advance as tolerated Discharge Activity: Resume usual activity Patient Instructions: Chest Pain (ED) Coding Level of Care Code ED Physician Practice Administrator for Aaron Irene
--- NOTE | 2024-06-16 11:54 | PC.NURSE ---
charge nurse ivette notified of pt needing chest port accessed. [id number].
--- NOTE | 2024-06-16 12:12 | PC.PHAR ---
patient is in and out of hospital frequently.. though every time we go over med list with patient he confirms that he still takes a few medications that i am not so sure that he does. he is way over due on getting meds filled from pharmacy. with that being said i removed eliquis 2.5 last filled 12/30/23 30 days gabapentin 100 12/02/23 30 days tresiba 40 units SUBCUT qam last filled 12/04/23 45 days levothyroxine 88 12/16/23 30 days
[2024-06-16] MEDS: aspirin 325 mg Tablet PO (12:44)
--- NOTE | 2024-06-16 12:45 | PC.NURSE ---
charge nurse attempted to access pt's port, unsuccessful. pt to get us iv.
--- NOTE | 2024-06-16 13:14 | ECG_ITS ---
[facility] Test Date: 2024-06-16 Pat Name: Rei Queen Department: Room: Gender: Male Registered Route Associate: : [id number] Requested By: Moses Gauthier Order Number: [id number] Pena MD: Garrison Mckinney M.D. Measurements Intervals [place] Rate: 86 P: 43 MD: 201 QRS: 30 QRSD: 106 T: 75 QT: 308 QTc: 369 Interpretive Statements SINUS RHYTHM POSSIBLE LEFT ATRIAL ENLARGEMENT [-0.1mV P-WAVE IN V1/V2] POSSIBLE ANTERIOR MYOCARDIAL INFARCTION , OF INDETERMINATE AGE [30 ms Q WAVE IN V3/V4, OR R < 0.2 mV IN V4] Compared to ECG 06/16/2024 11:18:39 No significant changes Electronically Signed On 06-20-2024 13:48:11 BACKUP ENGINEER by Garrison Mckinney M.D. [email or web address]
[2024-06-16] MEDS: morphine 4 mg/mL SDV 1 mL IVP ×2 (14:09→16:31)
[2024-06-16 14:31] LABS: Basophils % 0.4 %; Eosinophils # 0.1 10^3/uL (0.0-0.8); Eosinophils % 0.5 %; Hematocrit 32.7 % (37-53); Lymphocytes # 1.2 10^3/uL (0.8-4.8); Lymphocytes % 11.5 %; Mean Corpuscular HGB Conc 33.6 g/dL (30-55); Mean Corpuscular Volume 95.1 fl (82-101); Mean Platelet Volume 9.7 fL (7.4-10.4); Monocytes # 0.7 10^3/uL (0.2-0.9); Monocytes % 6.7 %; Neutrophils # 8.28 10^3/uL (1.8-7.7); Neutrophils % 80.6 %; Nucleated Red Blood Cells % 0 %; Platelet Count 229 10^3/cmm (157-399); Red Blood Count 3.44 10^6/uL (3.85-5.65); White Blood Count 10.27 10^3/uL (3.29-11.43)
[2024-06-16 14:51] LABS: Albumin Level 3.5 g/dL (3.5-5.2); Alkaline Phosphatase 114 U/L (40-130); Blood Urea Nitrogen 13 mg/dL (6-20); Calcium 8.2 mg/dL (8.5-10.5); Carbon Dioxide 27 mmol/L (22-29); Chloride 97 mmol/L (98-107); Creatinine Clr Calc Pharmacy 36.8872; Globulin 2.1 g/dL (1.3-4.6); Glomerular Filtration Rate 31.1 mL/min (90-130); Glucose 94 mg/dL (65-115); INR 0.92 (0.8-1.2); Osmolality Calculated 284 mOsm/kg (285-295); Sodium 137 mmol/L (136-145); Total Bilirubin 0.7 mg/dL (0.15-1.2); Total Protein 5.6 g/dL (6.6-8.7)
[2024-06-16 14:57] LABS: Anion Gap 16.7 (5-19); Aspartate Amino Transferase 26 U/L (0-40); Potassium 3.7 mmol/L (3.5-5.1); Troponin(5th) Baseline 69 ng/L (0-15)
[2024-06-16 14:58] LABS: Alanine Aminotransferase 15 U/L (0-41)
[2024-06-16 16:29] LABS: Troponin 5 2HR 72.11 ng/L (0-15); Troponin 5 2HR Delta 3.11 ABS# (0-10)
== END 2024-06-16 17:09 | disposition home or self-care (01) ==
PROVIDERS: Emergency Provider Emergency Medicine; PCP Internal Medicine
DX: R07.9 Chest pain, unspecified (principal); Z79.4 Long term (current) use of insulin; Z87.891 Personal history of nicotine dependence; E11.22 Type 2 diabetes mellitus with diabetic chronic kidney disease; I12.0 Hypertensive chronic kidney disease with stage 5 chronic kidney disease or end stage renal disease; N18.6 End stage renal disease; Z99.2 Dependence on renal dialysis
CPT/HCPCS: 71045; 80053; 84484; 85025; 85610; 93005; 96374; 96376; 99285; J2270

== ENCOUNTER → 2024-08-03 07:58 | Outpatient (BNVA) | payer MEDICARE, SELFPAY ==
[2024-03-20 13:31] VITALS: BP 125/53; BMI 35.0
== END ==
PROVIDERS: PCP Internal Medicine; Visit Provider Podiatrist Foot & Ankle Surgery
DX: E11.8 Type 2 diabetes mellitus with unspecified complications (principal); M21.372 Foot drop, left foot; M21.41 Flat foot [pes planus] (acquired), right foot; M21.42 Flat foot [pes planus] (acquired), left foot; N18.9 Chronic kidney disease, unspecified; E11.42 Type 2 diabetes mellitus with diabetic polyneuropathy; L60.3 Nail dystrophy; M79.672 Pain in left foot; Z79.4 Long term (current) use of insulin
CPT/HCPCS: 99213

== ENCOUNTER 2024-08-05 17:45 | Emergency (ER) | payer MEDICARE, SELFPAY ==
[2024-03-20 13:31] VITALS: BP 125/53; BMI 35.0
[2024-08-05 17:59] VITALS: BP 111/53; PULSE 82; RESP 18; TEMP 36.8; O2SAT 96; BMI 33.3
--- NOTE | 2024-08-05 18:32 | W.ED.CHESTPA ---
HPI - Chest Pain General: Chief Complaint: Chest Pain Stated Complaint: Chest pain, Fell Time Seen by Provider: 08/05/24 17:54 Source: patient and EMS Mode of arrival: EMS Limitations: no limitations History of Present Illness: This patient made his way from his domicile via EMS. He states that he is recently been hospitalized at [facility] and MO. He also subsequently had a AICD placed. He states he has had having some episodes were when he gets up within a short period of time after he is up and about he feels disoriented and has weak episodes and has near syncope or syncope episodes. He has had several of these but today had 1 and he fell and hit his head. He denies any chest pain currently palpitations associated with the events. He denies any black tarry stools blood in his stools vomiting blood etc. He denies any shortness of breath or other usual changes in his constitutional symptoms. He has had a prior sternotomy for what he describes as a pericardial tamponade as well as his recent MO and his recent pacemaker placement. He receives his dialysis on Saturday. Associated symptoms: Reports syncope; Deny abdominal pain, dyspnea, fever(s), nausea, palpitations or vomiting Related Data Home Medications ?Medication ?Instructions ?Recorded ?Confirmed diphenhydramine HCl 25 mg tablet 50 mg PO DAILY PRN Allergy Symptoms 05/02/23 07/27/24 (Benadryl Allergy) insulin lispro 100 unit/mL See Rx Instructions .Route .COMPLEX 05/02/23 07/27/24 subcutaneous pen (Humalog KwikPen (U-100) Insulin) vit B,C-folic ac 800 mcg-zinc 12.5 1 tab PO BEDTIME 10/29/23 07/27/24 mg-selen-D3 2,000 unit-vit E tablet (RenaPlex-D) tamsulosin 0.4 mg capsule 0.4 mg PO DAILY 03/24/24 07/27/24 tizanidine 2 mg tablet 2 mg PO BID 03/24/24 07/27/24 bumetanide 2 mg tablet 2 mg PO BID 04/15/24 07/27/24 carvedilol 6.25 mg tablet 6.25 mg PO BID 04/21/24 07/27/24 hydroxyzine HCl 50 mg tablet 100 mg PO BEDTIME PRN insomnia 04/21/24 07/27/24 promethazine 25 mg tablet 25 mg PO Q6H PRN Nausea 04/21/24 07/27/24 sevelamer carbonate 800 mg tablet 800 mg PO BID 05/27/24 07/27/24 tirzepatide 15 mg/0.5 mL See Rx Instructions .Route .COMPLEX 05/27/24 07/27/24 subcutaneous pen injector (Mounjaro) acetaminophen 500 mg tablet 1,000 mg PO QID PRN Pain 06/04/24 07/27/24 (Tylenol Extra Strength) hydrocodone 5 mg-acetaminophen 325 1 tab PO Q6H 06/16/24 07/27/24 mg tablet metoprolol tartrate 25 mg tablet 12.5 mg PO BID 06/16/24 07/27/24 Previous Rx's ?Medication ?Instructions ?Recorded atorvastatin 40 mg tablet 40 mg PO QAM #90 tabs 10/25/22 nitroglycerin 0.4 mg sublingual 0.4 mg sublingual Q5M PRN Chest 08/27/23 tablet (Nitrostat) Pain #25 tabs isosorbide mononitrate 30 mg See Rx Instructions .Route 10/03/23 tablet,extended release 24 hr .COMPLEX #30 tabs aspirin 81 mg tablet,delayed 81 mg PO DAILY #90 tabs 10/30/23 release pantoprazole 40 mg tablet,delayed 40 mg PO DAILY #30 tabs 03/26/24 release colchicine 0.6 mg tablet 0.3 mg (1/2 x 0.6 mg) PO DAILY #60 04/08/24 tabs nifedipine 30 mg tablet,extended 30 mg PO DAILY #90 tabs 04/08/24 release ranolazine 1,000 mg 1,000 mg PO BID #60 tabs 04/08/24 tablet,extended release,12 hr bupropion HCl 300 mg 24 hr tablet, 300 mg PO QAM #30 tabs 04/20/24 extended release buspirone 10 mg tablet 10 mg PO BID #60 tabs 04/20/24 fluoxetine 40 mg capsule 40 mg PO QAM #30 caps 04/20/24 trazodone 100 mg tablet 300 mg (3 x 100 mg) PO BEDTIME PRN 04/20/24 insomia #90 tabs Allergies Allergy/AdvReac Type Severity Reaction Status Date / Time Iodinated Contrast Media Allergy Severe ALGY-Difficulty Verified 08/03/24 07:38 Breathing iodine Allergy Severe ALGY-Difficulty Verified 08/03/24 07:38 Breathing metoclopramide (From Reglan) Allergy Severe ALGY-Difficulty Verified 08/03/24 07:38 Breathing nalbuphine (From Nubain) Allergy Severe ADR-Diarrhe Verified 08/03/24 07:38 a naproxen (From Naprosyn) Allergy Severe ADR-Vomitin Verified 08/03/24 07:38 g Sulfa (Sulfonamide Allergy Severe ALGY-Difficulty Verified 08/03/24 07:38 Antibiotics) Breathing ketorolac Allergy Intermediate ADR-Nausea Verified 08/03/24 07:38 ondansetron (From Zofran) Allergy Intermediate ADR-Abdominal Verified 08/03/24 07:38 Pain prochlorperazine (From Allergy Intermediate ADR-Irritab Verified 08/03/24 07:38 Compazine) le codeine AdvReac Severe ALGY-Anaphy Verified 08/03/24 07:38 laxis haloperidol (From Haldol) AdvReac Intermediate ADR-Irritab Verified 08/03/24 07:38 le Review of Systems Const: Denies: fever(s) or chills Eyes: Reports: blurry vision ENMT: Denies: throat pain, odynophagia, nasal discharge or nasal congestion Card: Reports: syncope and pre-syncope; Denies: palpitations or irregular heart rhythm Resp: Denies: dyspnea, productive cough or non-productive cough GI: Denies: abdominal pain, nausea, vomiting, hematemesis, hematochezia or melena : Denies: flank pain, difficulty urinating, dysuria or urinary frequency Musc: Denies: neck pain, back pain, extremity pain or extremity swelling Skin/Breast: Denies: rash, pruritus, erythema or photosensitivity Neuro: Reports: headache(s); Denies: numbness in extremities, weakness in extremities or seizure-like activity Dewey/Lymph: Reports: easy bruising PFSH ED PFSH: Medical History Generalized anxiety disorder Major depressive disorder, recurrent severe without psychotic features Pericarditis Elevated troponin Essential hypertension Essential hypertension ESRD (end stage renal disease) Hypertension Psychiatric care 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 mellitus Chronic renal failure Chest pain Chest pain CRF (chronic renal failure) Chronic right SI joint pain Chronic systolic heart failure UTI (urinary tract infection) Peripheral arterial disease PVD (peripheral vascular disease) Worsening angina Angina at rest Chest pain ESRD (end stage renal disease) Uremic encephalopathy ESRD (end stage renal disease) D-dimer, elevated Acute on chronic congestive heart failure History of pulmonary embolism Diabetes Acute kidney injury superimposed on CKD GERD (gastroesophageal reflux disease) Alcohol use disorder, moderate, in sustained remission DVT (deep venous thrombosis) (~03/2020) Proximal left subclavian, basilic and brachial veins, started eliquis this stay, felt present prior to admission Chronic kidney disease -baseline Cr appears to be around 1.5 Atherosclerotic heart disease of [place] coronary artery with other forms of angina pectoris hx of CAD with prior stenting of proximal LAD, LCx, RCA Ischemic cardiomyopathy Onychodystrophy Chronic anticoagulation Eliquis Osteoarthritis of spine Hypothyroidism Hypertension Hyperlipidemia Diabetes Depression Anemia Foot drop, left H/O acute myocardial infarction H/O deep venous thrombosis developed compartment syndrome Surgical History Peritoneal dialysis catheter in situ (06/15/21) History of appendectomy 1995 History of excision of mass 06/08/2019: Subcutaneous mass on back History of removal of Port-a-Cath Port-A-Cath in place H/O vasectomy Hx of cholecystectomy History of coronary artery stent placement 5x H/O skin graft History of inguinal hernia repair, bilateral 2000 H/O removal of testicle left H/O colonoscopy (11/14/20) 08/2015 H/O esophagogastroduodenoscopy (11/14/20) 08/2015 Family History Grandfather Cancer skin cancer Parkinson disease Brother Hypertension Father Heart disease Mother Hypertension Stroke Aneurysm Grandmother Aneurysm Other Crohn's disease Denies family history of Anesthesia complication Bleeding disorder Social History Smoking and tobacco/nicotine status: former use of tobacco/nicotine Second hand smoke exposure: No Alcohol intake: former Year of sobriety/quit date alcohol: 2015 Former alcohol use details: Only holidays - last use 05.19.2015 Substance/Drug Use: never Adopted: No Caregiver/support person: No Lives independently: Yes Household members: spouse Housing: Apartment Marital status: Number of children: 2 Number of grandchildren: 0 Highest education level completed: High School Graduate service: No Current occupational status: disabled Pets and animals: Yes Pets & animals: dog(s) Leisure activites: games and other Leisure activities details: watching TV Sexually active: Yes Do you think of yourself as: Straight/Heterosexual Current gender identity: Male Shannon/Protestant: Yarsanism Special shannon needs: No Agree to transfusion: Yes Physical Exam Narrative: EXAM NARRATIVE: The patient appears to be comfortable. He engaged in conversation and a detailed halting fashion but generally reaches a conclusion and his discussion. Appears to be in no acute distress. Const: COMMON NORMALS: patient oriented x3 GENERAL APPEARANCE: cooperative and comfortable NUTRITIONAL APPEARANCE: overweight HENMT: COMMON NORMALS: atraumatic, Normal nasal mucous membranes and turbinates present, moist oral mucous membranes and oropharynx normal HEAD & SCALP: atraumatic FACE & SINUS: normal facial exam and face symmetric NOSE: Normal nasal mucous membranes and turbinates present Eye: COMMON NORMALS: Equal, round and reactive pupils present, EOMs intact bilaterally, conjunctivae normal and no scleral icterus CONJUNCTIVA: Yes conjunctivae normal PUPIL: Yes Equal, round and reactive pupils present Neck/C-Spine: COMMON NORMALS: no JVD and No carotid bruits CERVICAL SPINE: No Cervical spine tenderness, No step off deformity and Yes Trapezius muscle tenderness Chest: COMMONS NORMALS: normal palpation of entire chest wall OTHER: 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 No drainage or erythema from the dressing. Resp: COMMON NORMALS: normal respiratory effort, No use of accessory muscles and clear to auscultation bilaterally AUSCULTATION: clear to auscultation bilaterally Cardio: COMMON NORMALS: no JVD, regular rate, regular rhythm, No murmurs present (Cardio) and Peripheral pulses 2+ throughout RATE: regular rate RHYTHM: regular rhythm PERIPHERAL PULSES: Peripheral pulses 2+ throughout GI: COMMON NORMALS: Normal to inspection, nondistended, normoactive bowel sounds present, Soft to palpation, non-tender and no masses PALPATION: Yes Soft to palpation : COMMON NORMALS: Yes no CVA tenderness BLADDER/KIDNEY EXAM: Yes no CVA tenderness Back/Pelvis: COMMON NORMALS: no CVA tenderness, thoracic and lumbar spine normal to inspection, no thoracic nor lumbar tenderness and thoraco-lumbar ROM normal Extremity: COMMON NORMALS: full ROM, capillary refill normal, no calf tenderness and no pedal edema OTHER: Well-healed linear scars of medial lateral lower extremities consistent with likely prior fasciotomies Neuro: COMMON NORMALS: patient oriented x3, moves all extremities, no focal motor deficits and no sensory deficits noted Psych: COMMON NORMALS: mental status grossly normal and Normal thought process present SPEECH: Yes slow and Yes delayed THOUGHT PROCESS: Normal thought process present Skin: COMMON NORMALS: no rashes or lesions noted, no wounds and turgor normal NARRATIVE SKIN EXAM: Prior longitudinal scars of his lower extremities suggestive and consistent with prior fasc GENERAL SKIN EXAM: no rashes or lesions noted and turgor normal Course Reevaluation(s): Reevaluation #1: Patient remained stable. Reexamination reveals no new or focal changes. Second troponin is pending to ensure that there is no dramatic change. He has a history of chronic troponin elevation due to his chronic renal failure. Time: 21:10 Vital Signs: Vital signs: Vital Signs Temperature 98.2 F 08/05/24 17:59 Pulse Rate 82 08/05/24 17:59 Respiratory Rate 18 08/05/24 17:59 Blood Pressure 111/53 08/05/24 17:59 Pulse Oximetry 96 08/05/24 17:59 Oxygen Delivery Me thod Room Air 08/05/24 17:59 MDM - Chest Pain Medical Decision Making Patient presents to the emergency department as noted in history of present illness. The patient has a history of recent MO with the [facility] with coronary stents. He apparently also had a AICD placed after his MO treatment. He complains of episodes where he feels somewhat lightheaded and disoriented that occur on occasion when he stands up. He states they do not occur immediately but occur after 30 to 40 seconds of being upright. He states he has been drinking fluids and following his dialysis routine of Saturday. He is unaware of any palpitations etc. He suffered a fall today and hit his head. He did not injure himself otherwise. Workup ensued to ensure that there is no evidence of intracranial hemorrhage, cervical spine injury. Chest x-ray as well as biomarker cardiac biomarkers were obtained. He remained clinically stable while in the emergency department. His imaging was reassuring at that there was no evidence of intracranial hemorrhage skull fracture etc. Her cervical spine CT was also reassuring without any acute changes. Chest x-ray did not reveal any acute process with pacemaker and pacemaker leads in appropriate location. Serial biomarkers were obtained which showed a decrease over the 2-hour troponins mitigating against any likely ongoing ischemia. Review of his past records reveal that he has been a chronic troponin leak are likely due to his chronic renal failure. His symptoms suggest possible near syncope and may be due to fluid shifts due to his chronic renal failure etc. We had a discussion on fluid intake and he admits that he is not drinking as much free water as he should. I also advised him that he may want to have his pacemaker interrogated if he continues to have the symptoms as well to evaluate for any dysrhythmias however we have not seen any evidence of such tonight. He is currently clinically stable and suitable to be discharged outpatient follow-up with return precautions. Medical Records I reviewed the patient's medical records. Multiple emergency department evaluations for chest pain with no evidence of ACS etc. during those evaluations. Lab Data I reviewed the patient's lab results. 08/05/24 19:25 08/05/24 19: Radiology Impressions Chest X-Ray 08/05/24 18:41 IMPRESSION: No acute cardiopulmonary process. Head CT 08/05/24 18:41 IMPRESSION: No acute intracranial abnormalities. Cervical Spine CT 08/05/24 18:42 IMPRESSION: Cervical spondylotic changes C5-C6. No acute bony abnormalities. Laboratory Results WBC 7.11 10^3/uL (3.29-11.43) 08/05/24: RBC 4.16 10^6/uL (3.85-5.65) 08/05/24 19: Hgb 13.00 g/dL (11.27-16.99) 08/05/24: Hct 39.2 % (37-53) 08/05/24: MCV 94.2 fl (82-101) 08/05/24: MCH 31.3 pg (27-33) 08/05/24: MCHC 33.2 g/dL (30-55) 08/05/24: RDW 14.5 % (12.1-15.1) 08/05/24: Plt Count 256 10^3/cmm (157-399) 08/05/24: MPV 9.2 fL (7.4-10.4) 08/05/24: Neut % (Auto) 69.1 % 08/05/24: Lymph % (Auto) 19.3 % 08/05/24: [place] % (Auto) 8.3 % 08/05/24: Eos % (Auto) 1.8 % 08/05/24: Baso % (Auto) 1.1 % 08/05/24 Neut # (Auto) 4.91 10^3/uL (1.8-7.7) 08/05/24: Lymph # (Auto) 1.4 10^3/uL (0.8-4.8) 08/05/24 Dade # (Auto) 0.6 10^3/uL (0.2-0.9) 08/05/24: Eos # (Auto) 0.1 10^3/uL (0.0-0.8) 08/05/24: Baso # (Auto) 0.1 10^3/uL (0.0-0.1) 08/05/24 Nucleated RBC % (auto) 0 % 08/05/24 Nucleated RBCs # 0.0 /100WBC 08/05/24: Sodium 140 mmol/L (136-145) 08/05/24: Potassium 4.3 mmol/L (3.5-5.1) 08/05/24: Chloride 99 mmol/L (98-107) 08/05/24: Carbon Dioxide 26 mmol/L (22-29) 08/05/24: Anion Gap 19.3 (5-19) H 08/05/24: BUN 18 mg/dL (6-20) 08/05/24 Creatinine 4.0 mg/dL (0.7-1.2) H 08/05/24: GFR Calculation 15.6 mL/min (90-130) L 08/05/24: Glucose 129 mg/dL (65-115) H 08/05/24: Calculated Osmolality 294 mOsm/kg (285-295) 08/05/24 19:25 Calcium 9.2 mg/dL (8.5-10.5) 08/05/24 19:25 Troponin T Baseline 62 ng/L (0-15) H 08/05/24 19:25 Troponin T 120 Minute 51.44 ng/L (0-15) H 08/05/24 21:14 Delta Troponin T -10.56 ABS# (0-10) L 08/05/24 21:14 All radiology interpretation(s) finalized by discharge EKG Data EKG 1: I personally reviewed and interpreted this EKG as follows: Interpretation: EKG contemporaneous reviewed revealed a ventricular rate of 80 bpm. Prolonged AL interval at 216 ms. Normal QRS duration, corrected QT interval borderline leftward axis. Sinus rhythm with a first-degree AV block poor R wave progression anteriorly suggestive of possible remote anterior MO. No acute changes. EKG 2: I personally reviewed and interpreted this EKG as follows: Interpretation: Second EKG this emergency department visit revealed ventricular rate of 77 bpm. Normal AL interval, QRS duration, corrected QT interval. Normal axis. Borderline first-degree AV block. No acute ST-T wave changes noted. Essentially unchanged electrocardiogram from earlier this evening. Discharge Plan Discharge Patient Disposition: Home Clinical Impression: Fall from ground level, Chronic progressive renal failure, Elevated troponin level not due myocardial infarction Condition: Stable Prescriptions: No Action trazodone 100 mg tablet 300 mg PO BEDTIME PRN (Reason: insomia ) Qty: 90 11RF bupropion HCl 300 mg tablet extended release 24 hr 300 mg PO QAM Qty: 30 11RF buspirone 10 mg tablet 10 mg PO BID Qty: 60 11RF fluoxetine 40 mg capsule 40 mg PO QAM Qty: 30 11RF nifedipine 30 mg tablet extended release 30 mg PO DAILY Qty: 90 3RF ranolazine 1,000 mg tablet extended release 12 hr 1,000 mg PO BID Qty: 60 1RF colchicine 0.6 mg tablet 0.3 mg PO DAILY Qty: 60 0RF Mounjaro 15 mg/0.5 mL pen injector See Rx Instructions .ROUTE .COMPLEX Dose Instruction: inject 15mg (0.5ml) SUBCUTANEOUSLY EVERY 7 DAYS Rx Instructions: inject 15mg (0.5ml) SUBCUTANEOUSLY EVERY 7 DAYS ON SATURDAY atorvastatin 40 mg tablet 40 mg PO QAM Qty: 90 2RF nitroglycerin [Nitrostat] 0.4 mg tablet, sublingual 0.4 mg SUBLINGUAL Q5M PRN (Reason: Chest Pain) Qty: 25 2RF Rx Instructions: do not exceed 3 doses per episode isosorbide mononitrate 30 mg tablet extended release 24 hr See Rx Instructions .ROUTE .COMPLEX Qty: 30 1RF Rx Instructions: Take 30 mg daily, do not take on dialysis days tizanidine 2 mg tablet 2 mg PO BID tamsulosin 0.4 mg capsule 0.4 mg PO DAILY pantoprazole 40 mg Tablet,Delayed Release (Dr/Ec) 40 mg PO DAILY Qty: 30 0RF carvedilol 6.25 mg tablet 6.25 mg PO BID promethazine 25 mg tablet 25 mg PO Q6H PRN (Reason: Nausea) hydroxyzine HCl 50 mg tablet 100 mg PO BEDTIME PRN (Reason: insomnia) diphenhydramine HCl [Benadryl Allergy] 25 mg Tablet 50 mg PO DAILY PRN (Reason: Allergy Symptoms) insulin lispro [Humalog KwikPen Insulin] 100 unit/mL insulin pen See Rx Instructions .ROUTE .COMPLEX Rx Instructions: Sliding scale subcutaneously twice a day as needed. RenaPlex-D 800 mcg-12.5 mg -2,000 unit tablet 1 tab PO BEDTIME aspirin 81 mg Tablet,Delayed Release (Dr/Ec) 81 mg PO DAILY Qty: 90 3RF bumetanide 2 mg tablet 2 mg PO BID sevelamer carbonate 800 mg tablet 800 mg PO BID Rx Instructions: must administer with a meal/food acetaminophen [Tylenol Extra Strength] 500 mg Tablet 1,000 mg PO QID PRN (Reason: Pain) hydrocodone-acetaminophen 5-325 mg tablet 1 tab PO Q6H metoprolol tartrate 25 mg tablet 12.5 mg PO BID Discharge Orders: Discharge ED (Routine); Ordered 08/05/24 Ordered By: Nick Hutchison Referrals: Kp Montanez DO [Physician] - Discharge Diet: Usual diet Discharge Activity: Increase activity as tolerated Patient Instructions: Opioid Safety, Pain Management Activity Restrictions/Additional Instructions: As we discussed this evening there is no evidence of serious injury from your fall today. Your workup did not reveal any evidence of heart rhythm abnormalities, heart attack, or other concerning findings. We recommend that you increase your fluid intake to help reduce your lightheadedness and unsteadiness. We also recommend that you follow-up with your deoiling machine operator regarding any issues with your pacemaker etc. If you develop any new or worsening symptoms return to the emergency department for reevaluation. Keep your regular scheduled dialysis appointment tomorrow. Print Language: Czech Coding Level of Care Code ED Television Production Technician for Aaron Irene
--- NOTE | 2024-08-05 18:41 | CTR_ITS ---
PROCEDURE INFORMATION: Exam: CT Head Without Contrast Exam date and time: 08/05/2024 6:49 PM Age: 54 years old Clinical indication: Injury or trauma; Fall; Concussion/head injury; With loss of consciousness; Not specified TECHNIQUE: Imaging protocol: Computed tomography of the head without contrast. Radiation optimization: All CT scans at this facility use at least one of these dose optimization techniques: automated exposure control; mA and/or kV adjustment per patient size (includes targeted exams where dose is matched to clinical indication); or iterative reconstruction. COMPARISON: CT head wo con* [id number] 11/17/2022 4:07 PM RADIATION DOSE METRICS: Total DLP (mGy-cm): 1369.6 FINDINGS: Brain: Normal. No hemorrhage. No mass effect or midline shift. Cortical sulci and white matter are unremarkable for age. Cerebral ventricles: Unremarkable for age. Paranasal sinuses: Visualized sinuses are unremarkable. No fluid levels. Mastoid air cells: Visualized mastoid air cells are well aerated. Bones: Unremarkable. No acute fracture. Soft tissues: Unremarkable. CT/CT head wo con* [id number] IMPRESSION: No acute intracranial abnormalities.
--- NOTE | 2024-08-05 18:41 | XRR_ITS ---
PROCEDURE INFORMATION: Exam: XR Chest Exam date and time: 08/05/2024 6:56 PM Age: 54 years old Clinical indication: Chest wall pain; Prior surgery; Surgery date: 1-6 months; Surgery type: Stent 2 mo ago; Additional info: Cp TECHNIQUE: Imaging protocol: Radiologic exam of the chest. Views: 1 view. COMPARISON: CR XR chest 1V portable [id number] 06/16/2024 11:57 AM FINDINGS: Tubes, catheters and devices: Right-sided cardiac device projects over right hemithorax partially obscuring evaluation of right lung. Lungs: No focal consolidation. Pleural spaces: Unremarkable. No pleural effusion. No pneumothorax. Heart/Mediastinum: Coronary stent projects over the left heart. Bones/joints: Changes of prior sternotomy. Soft tissues: Partially visualized stent within left axillary region. XR/XR chest 1V portable [id number] IMPRESSION: No acute cardiopulmonary process.
--- NOTE | 2024-08-05 18:41 | ECG_ITS ---
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 Measurements Intervals [place] Rate: 80 P: 15 WI: 216 QRS: -30 QRSD: 118 T: 88 QT: 422 QTc: 489 Interpretive Statements SINUS RHYTHM WITH FIRST DEGREE AV BLOCK POSSIBLE ANTERIOR MYOCARDIAL INFARCTION , OF INDETERMINATE AGE [30 ms Q WAVE IN V3/V4, OR R < 0.2 mV IN V4] Compared to ECG 06/16/2024 12:52:20 First degree AV block now present Myocardial infarct finding still present Electronically Signed On 08-05-2024 21:52:04 CDT by Karen Choi M.D. [id number]
--- NOTE | 2024-08-05 18:42 | CTR_ITS ---
PROCEDURE INFORMATION: Exam: CT Cervical Spine Without Contrast Exam date and time: 08/05/2024 6:49 PM Age: 54 years old Clinical indication: Injury or trauma; Fall; Blunt trauma TECHNIQUE: Imaging protocol: Computed tomography of the cervical spine without contrast. Radiation optimization: All CT scans at this facility use at least one of these dose optimization techniques: automated exposure control; mA and/or kV adjustment per patient size (includes targeted exams where dose is matched to clinical indication); or iterative reconstruction. COMPARISON: CT head wo con* [id number] 11/17/2022 4:07 PM RADIATION DOSE METRICS: Total DLP (mGy-cm): 228.8 FINDINGS: Bones: Cervical curvature alignment is unremarkable. There are spondylotic changes C5-C6 with disc space narrowing, endplate sclerosis and osteophytic lipping resulting in mild stenosis of the central canal and some foraminal narrowing bilaterally. Many disc heights are maintained. No evidence of fracture, facet subluxation or traumatic spondylolisthesis. Lungs: Lung apices are normal. Soft tissues: No prevertebral paraspinal soft tissue swelling. There is rather extensive calcification of both carotid bulbs predisposing this patient to carotid stenosis which could be better assessed on Doppler exam.. CT/CT cervical spin wo con* [id number] IMPRESSION: Cervical spondylotic changes C5-C6. No acute bony abnormalities.
[2024-08-05 19:46] LABS: Basophils # 0.1 10^3/uL (0.0-0.1); Basophils % 1.1 %; Eosinophils # 0.1 10^3/uL (0.0-0.8); Eosinophils % 1.8 %; Hematocrit 39.2 % (37-53); Lymphocytes # 1.4 10^3/uL (0.8-4.8); Lymphocytes % 19.3 %; Mean Corpuscular HGB Conc 33.2 g/dL (30-55); Mean Corpuscular Hemoglobin 31.3 pg (27-33); Mean Corpuscular Volume 94.2 fl (82-101); Mean Platelet Volume 9.2 fL (7.4-10.4); Monocytes # 0.6 10^3/uL (0.2-0.9); Monocytes % 8.3 %; Neutrophils # 4.91 10^3/uL (1.8-7.7); Neutrophils % 69.1 %; Nucleated Red Blood Cells % 0 %; Platelet Count 256 10^3/cmm (157-399); Red Blood Count 4.16 10^6/uL (3.85-5.65); Red Cell Distribution Width 14.5 % (12.1-15.1); White Blood Count 7.11 10^3/uL (3.29-11.43)
[2024-08-05 20:08] LABS: Troponin(5th) Baseline 62 ng/L (0-15)
[2024-08-05 20:11] LABS: Blood Urea Nitrogen 18 mg/dL (6-20); Calcium 9.2 mg/dL (8.5-10.5); Carbon Dioxide 26 mmol/L (22-29); Chloride 99 mmol/L (98-107); Creatinine Clr Calc Pharmacy 21.3463; Glomerular Filtration Rate 15.6 mL/min (90-130); Glucose 129 mg/dL (65-115); Osmolality Calculated 294 mOsm/kg (285-295); Sodium 140 mmol/L (136-145)
[2024-08-05 20:15] LABS: Anion Gap 19.3 (5-19); Potassium 4.3 mmol/L (3.5-5.1)
--- NOTE | 2024-08-05 20:28 | ECG_ITS ---
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 Measurements Intervals [place] Rate: 77 P: 32 IA: 211 QRS: -9 QRSD: 123 T: 121 QT: 403 QTc: 459 Interpretive Statements SINUS RHYTHM WITH FIRST DEGREE AV BLOCK POSSIBLE ANTERIOR MYOCARDIAL INFARCTION , OF INDETERMINATE AGE [30 ms Q WAVE IN V3/V4, OR R < 0.2 mV IN V4] Compared to ECG 08/05/2024 17:49:56 No significant changes Electronically Signed On 08-05-2024 22:10:56 CDT by Karen Choi M.D. [id number]
[2024-08-05 21:45] LABS: Troponin 5 2HR 51.44 ng/L (0-15)
[2024-08-05 21:50] LABS: Troponin 5 2HR Delta -10.56 ABS# (0-10)
--- NOTE | 2024-08-05 22:01 | PC.NURSE ---
this nurse took over pt care report from Mellissa RAMÍREZ at 2130.
[2024-08-05 22:11] VITALS: BP 90/43; PULSE 82; O2SAT 94
== END 2024-08-05 22:12 | disposition home or self-care (01) ==
PROVIDERS: Emergency Provider Emergency Medicine; PCP Family Medicine
DX: R79.89 Other specified abnormal findings of blood chemistry (principal); E11.22 Type 2 diabetes mellitus with diabetic chronic kidney disease; I12.0 Hypertensive chronic kidney disease with stage 5 chronic kidney disease or end stage renal disease; N18.6 End stage renal disease; Z87.891 Personal history of nicotine dependence; W19.XXXA Unspecified fall, initial encounter; Z79.4 Long term (current) use of insulin; I25.118 Atherosclerotic heart disease of native coronary artery with other forms of angina pectoris
CPT/HCPCS: 36415; 70450; 71045; 72125; 80048; 84484; 85025; 93005; 99285

== ENCOUNTER → 2024-10-02 10:04 | Outpatient (BNVA) | payer MEDICARE, SELFPAY ==
[2024-03-20 13:31] VITALS: BP 125/53; BMI 35.0
== END ==
PROVIDERS: PCP Family Medicine; Visit Provider Internal Medicine
DX: E11.42 Type 2 diabetes mellitus with diabetic polyneuropathy (principal); E78.2 Mixed hyperlipidemia; E11.9 Type 2 diabetes mellitus without complications; E03.9 Hypothyroidism, unspecified; E11.65 Type 2 diabetes mellitus with hyperglycemia; E03.8 Other specified hypothyroidism; E06.3 Autoimmune thyroiditis; R63.5 Abnormal weight gain
CPT/HCPCS: 99214

== ENCOUNTER 2024-11-06 17:10 | Emergency (ER) | payer MEDICARE, MEDICAID, SELFPAY ==
[2024-03-20 13:31] VITALS: BP 125/53; BMI 35.0
[2024-11-06 17:22] VITALS: BP 141/86; PULSE 86; RESP 18; TEMP 36.6; O2SAT 99
--- NOTE | 2024-11-06 17:22 | CTR_ITS ---
PROCEDURE INFORMATION: Exam: CT Head Without Contrast Exam date and time: 11/06/2024 5:51 PM Age: 54 years old Clinical indication: Injury or trauma; Blunt trauma (contusions or hematomas); Syncope with fall from standing; Additional info: Head injury TECHNIQUE: Imaging protocol: Computed tomography of the head without contrast. Radiation optimization: All CT scans at this facility use at least one of these dose optimization techniques: automated exposure control; mA and/or kV adjustment per patient size (includes targeted exams where dose is matched to clinical indication); or iterative reconstruction. COMPARISON: CT head wo con* [id number] 08/05/2024 6:49 PM RADIATION DOSE METRICS: Total DLP (mGy-cm): 1263 FINDINGS: Brain: No acute infarction, hemorrhage, mass, or extra-axial fluid collection is identified. No midline shift. Cerebral ventricles: No hydrocephalus. Paranasal sinuses: Paranasal sinuses are grossly clear. Mastoid air cells: Mastoid air cells are grossly clear. Bones: Calvarium appears intact. Soft tissues: Unremarkable. CT/CT head wo con* [id number] IMPRESSION: No acute intracranial abnormality.
--- NOTE | 2024-11-06 17:23 | CTR_ITS ---
PROCEDURE INFORMATION: Exam: CT Cervical Spine Without Contrast Exam date and time: 11/06/2024 5:51 PM Age: 54 years old Clinical indication: Injury or trauma; Blunt trauma; Syncope with fall from standing; Additional info: Head injury TECHNIQUE: Imaging protocol: Computed tomography of the cervical spine without contrast. Radiation optimization: All CT scans at this facility use at least one of these dose optimization techniques: automated exposure control; mA and/or kV adjustment per patient size (includes targeted exams where dose is matched to clinical indication); or iterative reconstruction. COMPARISON: CT cervical spin wo con* [id number] 08/05/2024 6:49 PM RADIATION DOSE METRICS: Total DLP (mGy-cm): 310.3 FINDINGS: Bones: No acute fracture of the cervical spine. Normal alignment. Slight straightening of lordosis as positioned. Degenerative change including anterior osteophytosis and dorsal spondylosis greatest at C5-C6. No severe spinal canal stenosis. Multilevel mild facet arthropathy. Lungs: Lung apices revealed granulomatous changes and mild scarring. Soft tissues: Unremarkable. CT/CT cervical spin wo con* [id number] IMPRESSION: No acute trauma to the cervical spine is identified.
--- NOTE | 2024-11-06 17:23 | ECG_ITS ---
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 Measurements Intervals [place] Rate: 84 P: 48 AK: 203 QRS: 0 QRSD: 118 T: 62 QT: 395 QTc: 469 Interpretive Statements SINUS RHYTHM POSSIBLE LEFT ATRIAL ENLARGEMENT [-0.1mV P-WAVE IN V1/V2] POSSIBLE ANTERIOR MYOCARDIAL INFARCTION , OF INDETERMINATE AGE [30 ms Q WAVE IN V3/V4, OR R < 0.2 mV IN V4] Compared to ECG 08/05/2024 20:28:06 First degree AV block no longer present Myocardial infarct finding still present Electronically Signed On 11-08-2024 19:27:13 CDT by Jeevan Lazaro M.D. [id number] [id number]
[2024-11-06 17:39] VITALS: PULSE 84; O2SAT 95
[2024-11-06 17:56] LABS: Basophils # 0.1 10^3/uL (0.0-0.1); Basophils % 0.7 %; Eosinophils # 0.2 10^3/uL (0.0-0.8); Eosinophils % 2.2 %; Hematocrit 33.3 % (37-53); Lymphocytes # 1.7 10^3/uL (0.8-4.8); Lymphocytes % 20.5 %; Mean Corpuscular HGB Conc 33.9 g/dL (30-55); Mean Corpuscular Hemoglobin 31.9 pg (27-33); Mean Corpuscular Volume 94.1 fl (82-101); Mean Platelet Volume 9.1 fL (7.4-10.4); Monocytes # 0.7 10^3/uL (0.2-0.9); Monocytes % 8.9 %; Neutrophils # 5.52 10^3/uL (1.8-7.7); Neutrophils % 67.1 %; Nucleated Red Blood Cells % 0 %; Platelet Count 259 10^3/cmm (157-399); Red Blood Count 3.54 10^6/uL (3.85-5.65); Red Cell Distribution Width 14.7 % (12.1-15.1); White Blood Count 8.23 10^3/uL (3.29-11.43)
[2024-11-06 18:14] LABS: Troponin(5th) Baseline 59 ng/L (0-15)
[2024-11-06 18:20] VITALS: BP 149/76; PULSE 83; O2SAT 95
[2024-11-06 19:06] LABS: Alanine Aminotransferase 18 U/L (0-41); Albumin Level 3.9 g/dL (3.5-5.2); Alkaline Phosphatase 100 U/L (40-130); Anion Gap 20.2 (5-19); Aspartate Amino Transferase 13 U/L (0-40); Blood Urea Nitrogen 47 mg/dL (6-20); Calcium 8.4 mg/dL (8.5-10.5); Carbon Dioxide 24 mmol/L (22-29); Chloride 94 mmol/L (98-107); Globulin 2.7 g/dL (1.3-4.6); Glomerular Filtration Rate 15.6 mL/min (90-130); Glucose 134 mg/dL (65-115); NT Pro B Type Natriuretic Pept 4920 pg/mL (0-125); Osmolality Calculated 292 mOsm/kg (285-295); Potassium 4.2 mmol/L (3.5-5.1); Sodium 134 mmol/L (136-145); Total Bilirubin 0.5 mg/dL (0.15-1.2); Total Protein 6.6 g/dL (6.6-8.7)
--- NOTE | 2024-11-06 19:23 | ECG_ITS ---
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 Measurements Intervals [place] Rate: 81 P: 53 MA: 209 QRS: -13 QRSD: 122 T: 64 QT: 409 QTc: 475 Interpretive Statements SINUS RHYTHM POSSIBLE LEFT ATRIAL ENLARGEMENT [-0.1mV P-WAVE IN V1/V2] POSSIBLE ANTERIOR MYOCARDIAL INFARCTION , OF INDETERMINATE AGE [30 ms Q WAVE IN V3/V4, OR R < 0.2 mV IN V4] Compared to ECG 11/06/2024 17:29:00 No significant changes Electronically Signed On 11-08-2024 19:38:09 CDT by Jeevan Lazaro M.D. [id number] [id number]
[2024-11-06 19:30] VITALS: RESP 19; O2SAT 97
[2024-11-06] MEDS: morphine 4 mg/mL SDV 1 mL 2 MG IVP (19:30)
[2024-11-06 20:48] LABS: Troponin 5 2HR 59.99 ng/L (0-15); Troponin 5 2HR Delta 0.99 ABS# (0-10)
--- NOTE | 2024-11-06 21:02 | W.ED.HEATRA ---
HPI - Head Injury General: Chief complaint: Head Injury Stated complaint: fall Time Seen by Provider: 11/06/24 17:11 History of Present Illness: This patient is a 54-year-old white male who presents to the emergency department for evaluation after a fall. Patient states he was putting groceries in a cart when his legs went out from underneath him. He states he struck the floor and did strike his head. He states he did lose consciousness. He does have a headache. He has some nausea. States he has had some chest discomfort as well. Associated symptoms: Reports nausea Related Data Home Medications ?Medication ?Instructions ?Recorded ?Confirmed diphenhydramine HCl 25 mg tablet 50 mg PO DAILY PRN Allergy Symptoms 05/02/23 10/01/24 (Benadryl Allergy) insulin lispro 100 unit/mL See Rx Instructions .Route .COMPLEX 05/02/23 10/01/24 subcutaneous pen (Humalog KwikPen (U-100) Insulin) vit B,C-folic ac 800 mcg-zinc 12.5 1 tab PO BEDTIME 10/29/23 10/01/24 mg-selen-D3 2,000 unit-vit E tablet (RenaPlex-D) tamsulosin 0.4 mg capsule 0.4 mg PO DAILY 03/24/24 10/01/24 tizanidine 2 mg tablet 2 mg PO BID 03/24/24 10/01/24 bumetanide 2 mg tablet 2 mg PO BID 04/15/24 10/01/24 carvedilol 6.25 mg tablet 6.25 mg PO BID 04/21/24 10/01/24 hydroxyzine HCl 50 mg tablet 100 mg PO BEDTIME PRN insomnia 04/21/24 10/01/24 promethazine 25 mg tablet 25 mg PO Q6H PRN Nausea 04/21/24 10/01/24 sevelamer carbonate 800 mg tablet 800 mg PO BID 05/27/24 10/01/24 acetaminophen 500 mg tablet 1,000 mg PO QID PRN Pain 06/04/24 10/01/24 (Tylenol Extra Strength) hydrocodone 5 mg-acetaminophen 325 1 tab PO Q6H 06/16/24 10/01/24 mg tablet metoprolol tartrate 25 mg tablet 12.5 mg PO BID 06/16/24 10/01/24 Previous Rx's ?Medication ?Instructions ?Recorded atorvastatin 40 mg tablet 40 mg PO QAM #90 tabs 10/25/22 nitroglycerin 0.4 mg sublingual 0.4 mg sublingual Q5M PRN Chest 08/27/23 tablet (Nitrostat) Pain #25 tabs isosorbide mononitrate 30 mg See Rx Instructions .Route 10/03/23 tablet,extended release 24 hr .COMPLEX #30 tabs aspirin 81 mg tablet,delayed 81 mg PO DAILY #90 tabs 10/30/23 release pantoprazole 40 mg tablet,delayed 40 mg PO DAILY #30 tabs 03/26/24 release colchicine 0.6 mg tablet 0.3 mg (1/2 x 0.6 mg) PO DAILY #60 04/08/24 tabs nifedipine 30 mg tablet,extended 30 mg PO DAILY #90 tabs 04/08/24 release bupropion HCl 300 mg 24 hr tablet, 300 mg PO QAM #30 tabs 04/20/24 extended release buspirone 10 mg tablet 10 mg PO BID #60 tabs 04/20/24 fluoxetine 40 mg capsule 40 mg PO QAM #30 caps 04/20/24 trazodone 100 mg tablet 300 mg (3 x 100 mg) PO BEDTIME PRN 04/20/24 insomia #90 tabs tirzepatide 15 mg/0.5 mL See Rx Instructions .Route 08/11/24 subcutaneous pen injector .COMPLEX #2 mL (Mounjaro) ranolazine 1,000 mg 1,000 mg PO BID #60 tabs 09/21/24 tablet,extended release,12 hr Allergies Allergy/AdvReac Type Severity Reaction Status Date / Time Iodinated Contrast Media Allergy Severe ALGY-Difficulty Verified 10/01/24 14:06 Breathing iodine Allergy Severe ALGY-Difficulty Verified 10/01/24 14:06 Breathing metoclopramide (From Reglan) Allergy Severe ALGY-Difficulty Verified 10/01/24 14:06 Breathing nalbuphine (From Nubain) Allergy Severe ADR-Diarrhe Verified 10/01/24 14:06 a naproxen (From Naprosyn) Allergy Severe ADR-Vomitin Verified 10/01/24 14:06 g Sulfa (Sulfonamide Allergy Severe ALGY-Difficulty Verified 10/01/24 14:06 Antibiotics) Breathing ketorolac Allergy Intermediate ADR-Nausea Verified 10/01/24 14:06 ondansetron (From Zofran) Allergy Intermediate ADR-Abdominal Verified 10/01/24 14:06 Pain prochlorperazine (From Allergy Intermediate ADR-Irritab Verified 10/01/24 14:06 Compazine) le codeine AdvReac Severe ALGY-Anaphy Verified 10/01/24 14:06 laxis haloperidol (From Haldol) AdvReac Intermediate ADR-Irritab Verified 10/01/24 14:06 le Review of Systems General: Reports: 10 or more systems reviewed and unremarkable except in HPI and below Card: Reports: chest pain GI: Reports: nausea Neuro: Reports: headache(s) PFSH ED PFSH: Medical History (Updated 11/06/24 @ 21:00 by Vamshi Gold MD) Hypothyroidism Generalized anxiety disorder Major depressive disorder, recurrent severe without psychotic features Pericarditis Elevated troponin Essential hypertension Essential hypertension ESRD (end stage renal disease) Hypertension Psychiatric care 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 mellitus Chronic renal failure Chest pain Chest pain CRF (chronic renal failure) Chronic right SI joint pain Chronic systolic heart failure UTI (urinary tract infection) Peripheral arterial disease PVD (peripheral vascular disease) Worsening angina Angina at rest Chest pain ESRD (end stage renal disease) Uremic encephalopathy ESRD (end stage renal disease) D-dimer, elevated Acute on chronic congestive heart failure History of pulmonary embolism Diabetes Acute kidney injury superimposed on CKD GERD (gastroesophageal reflux disease) Alcohol use disorder, moderate, in sustained remission DVT (deep venous thrombosis) (~03/2020) Proximal left subclavian, basilic and brachial veins, started eliquis this stay, felt present prior to admission Chronic kidney disease -baseline Cr appears to be around 1.5 Atherosclerotic heart disease of [place] coronary artery with other forms of angina pectoris hx of CAD with prior stenting of proximal LAD, LCx, RCA Ischemic cardiomyopathy Onychodystrophy Chronic anticoagulation Eliquis Osteoarthritis of spine Hypertension Hyperlipidemia Diabetes Depression Anemia Foot drop, left H/O acute myocardial infarction H/O deep venous thrombosis developed compartment syndrome Surgical History Peritoneal dialysis catheter in situ (06/15/21) History of appendectomy 1995 History of excision of mass 06/08/2019: Subcutaneous mass on back History of removal of Port-a-Cath Port-A-Cath in place H/O vasectomy Hx of cholecystectomy History of coronary artery stent placement 5x H/O skin graft History of inguinal hernia repair, bilateral 1999 H/O removal of testicle left H/O colonoscopy (11/14/20) 08/2015 H/O esophagogastroduodenoscopy (11/14/20) 08/2015 Family History Grandfather Cancer skin cancer Parkinson disease Brother Hypertension Father Heart disease Mother Hypertension Stroke Aneurysm Grandmother Aneurysm Other Crohn's disease Denies family history of Anesthesia complication Bleeding disorder Social History Smoking and tobacco/nicotine status: former use of tobacco/nicotine Second hand smoke exposure: No Alcohol intake: former Year of sobriety/quit date alcohol: 2015 Former alcohol use details: Only holidays - last use 05.19.2015 Substance/Drug Use: never Adopted: No Caregiver/support person: No Lives independently: Yes Household members: spouse Housing: Apartment Marital status: Number of children: 2 Number of grandchildren: 0 Highest education level completed: High School Graduate service: No Current occupational status: disabled Pets and animals: Yes Pets & animals: dog(s) Leisure activites: games and other Leisure activities details: watching TV Sexually active: Yes Do you think of yourself as: Straight/Heterosexual Current gender identity: Male 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 Special shannon needs: No Agree to transfusion: Yes Physical Exam Const: COMMON NORMALS: no acute distress, patient oriented x3 and no limitations GENERAL APPEARANCE: cooperative and comfortable HENMT: COMMON NORMALS: normocephalic, atraumatic, Normal nasal mucous membranes and turbinates present, moist oral mucous membranes and oropharynx normal HEAD & SCALP: normal to inspection, normocephalic and atraumatic FACE & SINUS: normal facial exam NOSE: Normal nasal mucous membranes and turbinates present Eye: COMMON NORMALS: Equal, round and reactive pupils present, EOMs intact bilaterally and conjunctivae normal GENERAL EYE: appearance normal, both eyes and all related structures CONJUNCTIVA: Yes conjunctivae normal PUPIL: Yes Equal, round and reactive pupils present Neck/C-Spine: COMMON NORMALS: supple and no JVD Chest: COMMONS NORMALS: normal inspection of the chest Resp: COMMON NORMALS: normal respiratory effort and clear to auscultation bilaterally AUSCULTATION: clear to auscultation bilaterally Cardio: COMMON NORMALS: no JVD, regular rate, regular rhythm, No gallops present (Cardio), No murmurs present (Cardio) and No rub (Cardio) RATE: regular rate RHYTHM: regular rhythm GI: COMMON NORMALS: Normal to inspection, nondistended, normoactive bowel sounds present, Soft to palpation and non-tender AUSCULTATION: Yes normoactive bowel sounds PALPATION: Yes Soft to palpation : COMMON NORMALS: Yes no CVA tenderness BLADDER/KIDNEY EXAM: Yes no CVA tenderness Back/Pelvis: COMMON NORMALS: no CVA tenderness and thoracic and lumbar spine normal to inspection Extremity: COMMON NORMALS: normal to inspection Neuro: COMMON NORMALS: patient oriented x3 and CN's II-XII intact bilaterally Psych: COMMON NORMALS: mental status grossly normal, Normal thought process present and cooperative THOUGHT PROCESS: Normal thought process present Skin: COMMON NORMALS: no rashes or lesions noted, turgor normal and no jaundice GENERAL SKIN EXAM: no rashes or lesions noted and turgor normal Course Vital Signs: Vital signs: Vital Signs Temperature 97.8 F 11/06/24 17:22 Pulse Rate 83 11/06/24 18:20 Respiratory Rate 19 H 11/06/24 19:30 Blood Pressure 149/76 11/06/24 18:20 Pulse Oximetry 97 11/06/24 19:30 Oxygen Delivery Me thod Room Air 11/06/24 17:39 MDM - Head Injury Medcial Decision Making Patient did arrive in a c-collar. That was not removed until after imaging. His EKG was normal. CBC normal. CMP revealed a BUN of 47 and creatinine of 4.0. Patient is does have end-stage renal disease and is on peritoneal dialysis. His BNP was 4920. Troponin was 59 with a 2-hour level of 60. Head CT was read by the radiologist as normal. C-spine CT was read by the radiologist as normal. Patient was given morphine for his discomfort. He was discharged in stable condition instructed to follow-up with his primary care physician as needed. He does have hydrocodone at home for pain. Lab Data 11/06/24 17:50 11/06/24 17:[address] 11/06/24 17:22 IMPRESSION: No acute intracranial abnormality. Cervical Spine CT 11/06/24 17:23 IMPRESSION: No acute trauma to the cervical spine is identified. Laboratory Results WBC 8.23 10^3/uL (3.29-11.43) 11/06/24 17:50 RBC 3.54 10^6/uL (3.85-5.65) L 11/06/24 17:50 Hgb 11.30 g/dL (11.27-16.99) 11/06/24 17:50 Hct 33.3 % (37-53) L 11/06/24 17:50 MCV 94.1 fl (82-101) 11/06/24 17:50 MCH 31.9 pg (27-33) 11/06/24 17:50 MCHC 33.9 g/dL (30-55) 11/06/24 17:50 RDW 14.7 % (12.1-15.1) 11/06/24 17:50 Plt Count 259 10^3/cmm (157-399) 11/06/24 17:50 MPV 9.1 fL (7.4-10.4) 11/06/24 17:50 Neut % (Auto) 67.1 % 11/06/24 17:50 Lymph % (Auto) 20.5 % 11/06/24 17:50 [place] % (Auto) 8.9 % 11/06/24 17:50 Eos % (Auto) 2.2 % 11/06/24 17:50 Baso % (Auto) 0.7 % 11/06/24 17:50 Neut # (Auto) 5.52 10^3/uL (1.8-7.7) 11/06/24 17:50 Lymph # (Auto) 1.7 10^3/uL (0.8-4.8) 11/06/24 17:50 [place] # (Auto) 0.7 10^3/uL (0.2-0.9) 11/06/24 17:50 Eos # (Auto) 0.2 10^3/uL (0.0-0.8) 11/06/24 17:50 Baso # (Auto) 0.1 10^3/uL (0.0-0.1) 11/06/24 17:50 Nucleated RBC % (auto) 0 % 11/06/24 17:50 Nucleated RBCs # 0.0 /100WBC 11/06/24 17:50 Sodium 134 mmol/L (136-145) L 11/06/24 17:50 Potassium 4.2 mmol/L (3.5-5.1) 11/06/24 17:50 Chloride 94 mmol/L (98-107) L 11/06/24 17:50 Carbon Dioxide 24 mmol/L (22-29) 11/06/24 17:50 Anion Gap 20.2 (5-19) H 11/06/24 17:50 BUN 47 mg/dL (6-20) H 11/06/24 17:50 Creatinine 4.0 mg/dL (0.7-1.2) H 11/06/24 17:50 GFR Calculation 15.6 mL/min (90-130) L 11/06/24 17:50 Glucose 134 mg/dL (65-115) H 11/06/24 17:50 Calculated Osmolality 292 mOsm/kg (285-295) 11/06/24 17:50 Calcium 8.4 mg/dL (8.5-10.5) L 11/06/24 17:50 Total Bilirubin 0.5 mg/dL (0.15-1.2) 11/06/24 17:50 AST 13 U/L (0-40) 11/06/24 17:50 ALT 18 U/L (0-41) 11/06/24 17:50 Alkaline Phosphatase 100 U/L (40-130) 11/06/24 17:50 Troponin T Baseline 59 ng/L (0-15) H 11/06/24 17:50 Troponin T 120 Minute 59.99 ng/L (0-15) H 11/06/24 20:24 Delta Troponin T 0.99 ABS# (0-10) 11/06/24 20:24 NT-Pro-B Natriuret Pep 4920 pg/mL (0-125) H 11/06/24 17:50 Total Protein 6.6 g/dL (6.6-8.7) 11/06/24 17:50 Albumin 3.9 g/dL (3.5-5.2) 11/06/24 17:50 Globulin 2.7 g/dL (1.3-4.6) 11/06/24 17:50 All radiology interpretation(s) finalized by discharge Discharge Plan Discharge Patient Disposition: Home Clinical Impression: Fall Qualifiers: Encounter type: initial encounter Qualified Code(s): W19.XXXA - Unspecified fall, initial encounter Condition: Stable Prescriptions: No Action trazodone 100 mg tablet 300 mg PO BEDTIME PRN (Reason: insomia ) Qty: 90 11RF bupropion HCl 300 mg tablet extended release 24 hr 300 mg PO QAM Qty: 30 11RF buspirone 10 mg tablet 10 mg PO BID Qty: 60 11RF fluoxetine 40 mg capsule 40 mg PO QAM Qty: 30 11RF nifedipine 30 mg tablet extended release 30 mg PO DAILY Qty: 90 3RF colchicine 0.6 mg tablet 0.3 mg PO DAILY Qty: 60 0RF atorvastatin 40 mg tablet 40 mg PO QAM Qty: 90 2RF nitroglycerin [Nitrostat] 0.4 mg tablet, sublingual 0.4 mg SUBLINGUAL Q5M PRN (Reason: Chest Pain) Qty: 25 2RF Rx Instructions: do not exceed 3 doses per episode Mounjaro 15 mg/0.5 mL pen injector See Rx Instructions .ROUTE .COMPLEX Qty: 2 2RF Dose Instruction: inject 15mg (0.5ml) SUBCUTANEOUSLY EVERY 7 DAYS Rx Instructions: inject 15mg (0.5ml) SUBCUTANEOUSLY EVERY 7 DAYS ranolazine 1,000 mg tablet extended release 12 hr 1,000 mg PO BID Qty: 60 1RF isosorbide mononitrate 30 mg tablet extended release 24 hr See Rx Instructions .ROUTE .COMPLEX Qty: 30 1RF Rx Instructions: Take 30 mg daily, do not take on dialysis days tizanidine 2 mg tablet 2 mg PO BID tamsulosin 0.4 mg capsule 0.4 mg PO DAILY pantoprazole 40 mg Tablet,Delayed Release (Dr/Ec) 40 mg PO DAILY Qty: 30 0RF carvedilol 6.25 mg tablet 6.25 mg PO BID promethazine 25 mg tablet 25 mg PO Q6H PRN (Reason: Nausea) hydroxyzine HCl 50 mg tablet 100 mg PO BEDTIME PRN (Reason: insomnia) diphenhydramine HCl [Benadryl Allergy] 25 mg Tablet 50 mg PO DAILY PRN (Reason: Allergy Symptoms) insulin lispro [Humalog KwikPen Insulin] 100 unit/mL insulin pen See Rx Instructions .ROUTE .COMPLEX Rx Instructions: Sliding scale subcutaneously twice a day as needed. RenaPlex-D 800 mcg-12.5 mg -2,000 unit tablet 1 tab PO BEDTIME aspirin 81 mg Tablet,Delayed Release (Dr/Ec) 81 mg PO DAILY Qty: 90 3RF bumetanide 2 mg tablet 2 mg PO BID sevelamer carbonate 800 mg tablet 800 mg PO BID Rx Instructions: must administer with a meal/food acetaminophen [Tylenol Extra Strength] 500 mg Tablet 1,000 mg PO QID PRN (Reason: Pain) hydrocodone-acetaminophen 5-325 mg tablet 1 tab PO Q6H metoprolol tartrate 25 mg tablet 12.5 mg PO BID Discharge Orders: Discharge ED (Routine); Ordered 11/06/24 Ordered By: Vamshi Gold Referrals: Dez Evans MD [Primary Care Provider, Family Practice] Patient Instructions: Fall Prevention (ED) Print Language: Tajik Coding Level of Care Code ED Research Tech for Aaron Irene
[2024-11-06 21:36] VITALS: BP 136/79; PULSE 82; RESP 19; TEMP 36.7; O2SAT 95
== END 2024-11-06 21:39 | disposition home or self-care (01) ==
PROVIDERS: Emergency Provider Emergency Medicine; PCP Family Medicine
DX: R55 Syncope and collapse (principal); S09.90XA Unspecified injury of head, initial encounter; R07.89 Other chest pain; W19.XXXA Unspecified fall, initial encounter; Z79.4 Long term (current) use of insulin; Z79.82 Long term (current) use of aspirin; Z87.891 Personal history of nicotine dependence; R51.9 Headache, unspecified; R11.0 Nausea; E78.5 Hyperlipidemia, unspecified; E11.22 Type 2 diabetes mellitus with diabetic chronic kidney disease; I13.2 Hypertensive heart and chronic kidney disease with heart failure and with stage 5 chronic kidney disease, or end stage renal disease; I50.22 Chronic systolic (congestive) heart failure; N18.6 End stage renal disease
CPT/HCPCS: 36415; 70450; 72125; 80053; 83880; 84484; 85025; 93005; 96374; 99285; J2270

== ENCOUNTER → 2024-11-09 08:17 | Outpatient (BNVA) | payer MEDICARE, SELFPAY ==
[2024-03-20 13:31] VITALS: BP 125/53; BMI 35.0
== END ==
PROVIDERS: PCP Family Medicine; Visit Provider Podiatrist Foot & Ankle Surgery
DX: E11.8 Type 2 diabetes mellitus with unspecified complications (principal); M21.372 Foot drop, left foot; M21.41 Flat foot [pes planus] (acquired), right foot; M21.42 Flat foot [pes planus] (acquired), left foot; N18.9 Chronic kidney disease, unspecified; E11.42 Type 2 diabetes mellitus with diabetic polyneuropathy; Z79.4 Long term (current) use of insulin
CPT/HCPCS: 99213

== ENCOUNTER → 2024-11-13 09:15 | Outpatient (BNVA) | payer MEDICARE, SELFPAY ==
[2024-03-20 13:31] VITALS: BP 125/53; BMI 35.0
== END ==
PROVIDERS: PCP Family Medicine; Visit Provider Internal Medicine
DX: I42.9 Cardiomyopathy, unspecified (principal); I13.2 Hypertensive heart and chronic kidney disease with heart failure and with stage 5 chronic kidney disease, or end stage renal disease; E11.22 Type 2 diabetes mellitus with diabetic chronic kidney disease; I50.22 Chronic systolic (congestive) heart failure; I25.10 Atherosclerotic heart disease of native coronary artery without angina pectoris; E66.9 Obesity, unspecified; I82.622 Acute embolism and thrombosis of deep veins of left upper extremity; N18.6 End stage renal disease; Z68.33 Body mass index [BMI] 33.0-33.9, adult
CPT/HCPCS: 99214

== ENCOUNTER 2024-11-26 09:07 | Outpatient (CLI) | payer MEDICARE, SELFPAY ==
[2024-03-20 13:31] VITALS: BP 125/53; BMI 35.0
== END 2024-11-26 09:08 | disposition home or self-care (01) ==
LOC: CDL 09:16
PROVIDERS: Absent Provider Internal Medicine Nephrology; Family Provider Internal Medicine; PCP Family Medicine; Referring Provider General Practice; Visit Provider Internal Medicine
DX: Z53.9 Procedure and treatment not carried out, unspecified reason (principal)
CPT/HCPCS: 36415; 96374

== ENCOUNTER 2024-12-02 09:42 | Outpatient (CLI) | payer MEDICARE, SELFPAY ==
[2024-03-20 13:31] VITALS: BP 125/53; BMI 35.0
--- NOTE | 2024-12-02 | ECG_ITS ---
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 Interpretive Statements LEXISCAN SESTAMIBI STRESS TEST Procedure: At the baseline, the blood pressure was 142/75 mmHg with a heart rate of 84 bpm. The electrocardiogram showed normal sinus rhythm, normal axis with normal ST and T's. The Lexiscan was infused over a period of 20 seconds. A total of 0.4 mg of Lexiscan was infused. The stress phase was continued for a total of 5 minutes. Heart rate was at the end of stress phase was 93 bpm and a blood pressure of 141/43 mmHg. The EKG at the peak infusion revealed normal sinus rhythm with no significant ST-T wave changes. Sestamibi was injected 20 seconds after the Lexiscan infusion. Blood pressure at the end of recovery phase was 139/49 mmHg with a heart rate of 93 bpm. Conclusion: 1. Normal EKG response to Lexiscan infusion 2. No Lexiscan induced chest pain or cardiac arrhythmia. 3. Normal blood pressure and heart rate response. 4. Sestamibi/sestamibi perfusion scan pending; see separate report. Electronically Signed On 12-03-2024 12:43:43 CDT by Garrison Mckinney M.D. [id number]
[2024-12-02 09:44] VITALS: BMI 32.5
--- NOTE | 2024-12-02 09:45 | NMCV_ITS ---
NM michelle perf SPECT r/s* [id number] Rei Queen Age: 54 Gender: M : 1970 Exam Date: 12/02/2024 10:56 Ordering Phys: Garrison Mckinney M.D ([email or web address]) Technologist: BALDEMAR Schwartz Exam Location: [facility] Indications: cp STRESS TEST [facility] for [facility] IMAGE PROTOCOL Rest/Stress 1 Lexiscan Day Radiopharmaceutical Dose (mCi) Administration Site Administered by Rest: Tc-99m 10.6 IV BALDEMAR Schwartz Sestamibi Stress:Tc-99m 32.8 IV BALDEMAR Johnston Sestamibi Rest: 02-Dec-2024 60 Discovery 630 Stress: 02-Dec-2024 30 Discovery 630 0.4mg Lexiscan. Images obtained in supine and prone position. SPECT RESULTS Technical Quality: Good Raw Data Analysis: Normal Image Corrections: No attenuation or motion correction applied Summed Stress Score: 17 Summed Rest Score: 18 Summed Difference Score: 0 PERFUSION FINDINGS Large area of fixed perfusion defect is seen in apical, apical lateral, apical anterior and apical inferior rizzo. This is consistent with large area of prior infarct with no significant ischemia in the distribution of all 3 coronary artery territories. FUNCTIONAL RESULTS (calculated via Gated SPECT) Stress Image LV EF (%): 34 Stress EDV (mL):225 TID: 0.97 Stress ESV (mL):149 FUNCTIONAL FINDINGS: LV systolic function is moderate to severely reduced with EF of 34% IMPRESSIONS 1. Abnormal myocardial perfusion imaging with large areas of prior infarct seen in distribution of all 3 coronary arteries. No significant ischemia seen. 2. LV systolic function is moderate to severely reduced with EF of 34% Garrison Mckinney MD (Electronically Signed) Final Date: 03 December 2024 09:24 S
[2024-12-02 11:36] VITALS: BP 139/49; PULSE 93
== END 2024-12-02 09:43 | disposition home or self-care (01) ==
PROVIDERS: Family Provider Internal Medicine; PCP Family Medicine; Visit Provider Internal Medicine
DX: R07.9 Chest pain, unspecified (principal); R06.02 Shortness of breath; R93.1 Abnormal findings on diagnostic imaging of heart and coronary circulation
CPT/HCPCS: 78452; 93017; A9500; J2785

== ENCOUNTER 2024-12-07 16:26 | Observation (INO) | payer MEDICARE, SELFPAY ==
[2024-03-20 13:31] VITALS: BP 125/53; BMI 35.0
[2024-12-07] VITALS (7 sets, daily range): BP systolic 161–183; BP diastolic 80–106; PULSE 78–92; RESP 16–19; TEMP 36.7; O2SAT 92–97; BMI 32.5
--- OUTSIDE RECORDS SUMMARY | 2024-12-07 16:32 | XMS_ITS | Encounter Summary ---
Author Organization [facility], [facility] Address [address] [facility] [address] [address] [place] [address] Phone Care Team Providers Care Employment Law Specialist Name Role Phone Kp Montanez DO Primary Care Provider [phone] Reason for Visit * Reason Comments Med Refill Encounter Details Date Type Department Care Team (Late st Contact Info) Description 11/17/2021 Refill [facility] [address] [facility] [address] [place] [address] Antolin Weiss MD Social History Tobacco Use Types Packs/Day Years Used Date Smoking Tobacco: Never Smokeless Tobacco: Never Alcohol Use Standard Drinks/Week Comments Not Currently 0 (1 standard drink = 0.6 oz pur e alcohol) Sex and Gender Information Value Date Recorded Sex Assigned at Not on file Legal Sex Male 12:43 PM EST Gender Identity Not on file Sexual Orientation Not on file documented as of this encounter Plan of Treatment Not on file documented as of this encounter Visit Diagnoses Not on filedocumented in this encounter Care Teams Employment Law Specialist Relationship Specialty Start Date End Date Kp Montanez DO [address] [place] [address] PCP - General Internal Medicine 01/07/23 documented as of this encounter
--- OUTSIDE RECORDS SUMMARY | 2024-12-07 16:32 | XMS_ITS | Encounter Summary ---
Author Organization [facility], [facility] Address [address] [place] [address] Phone Care Team Providers Care Route Delivery Service Driver Name Role Phone MontanezKp kevin Primary Care Provider [phone] Encounter Details Date Type Department Care Team (Late st Contact Info) Description 07/14/2024 [facility], [facility] [address] [place] [address] Ayad Monahan, BLOGS MANAGER [address] [place] [address] Social History Tobacco Use Types Packs/Day Years [...] on file documented as of this encounter Progress Notes * Ayad Monahan NP - 07/14/2024 12:00 AM CST Patient: Rei Queen : 1970 Note Type: Dialysis TCM Service Date: 07/14/2024 The patient was seen for a [id number]-[id number] visit as part of Transitional Care Management services. Attending Dye Tub Operator: RITA MENENDEZ Dialysis Location: [facility] Schedule: Shift: 1 HOSPITALIZATION SUMMARY Patient transitioned from: Hospital Patient transitioned to: Home Admit Date: 06/28/2024 Discharge Date: 07/03/2024 Discharged info reviewed: Followed-up on or reviewed need for pending tests/treatments as noted Reason for admission: JAVIER COMMENTS: Needs CBC and BMP we will send labs for him, HOME MEDICATIONS Discharge med list reviewed and reconciled - no changes. Active treatment medication orders reviewed - no changes. TREATMENT MEDICATIONS ORDERS Heparin Sodium (Porcine) 1,000 Units/mL Systemic 4000 units IVP Every Treatment 04/07/2024 - 04/06/2025 Mircera 30 mcg IVP Every 4 weeks 06/30/2024 - 06/29/2025 PHYSICAL EXAM Exam performed. Vital Signs Reviewed. Lungs - Clear. CV - Blood pressure noted. 1+ edema. 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 COMMENTS: following Cardiology EDUCATION Education relevant to the discharge diagnosis provided to the patient or caregiver VISIT DIAGNOSES CPT Code 13681 - High complexity, seen 8-14 days post discharge or moderate complexity, seen [id number] days of discharge. R07.9 Chest pain, unspecified N18.6, Z99.2 End stage renal disease;Dependence on renal dialysis Signed by: AYAD MONAHAN NP on 07/14/2024 at 01:27:20 PM Transcribed by: AYAD MONAHAN NP on 07/14/2024 at 01:27:20 PM documented in this encounter Plan of Treatment Not on file documented as of this encounter Visit Diagnoses Not on filedocumented in this encounter Care Teams Route Delivery Service Driver Relationship Specialty Start Date End Date Kp Monatnez DO [address] [place] [address] PCP - General Internal Medicine 01/07/23 documented as of this encounter
--- OUTSIDE RECORDS SUMMARY | 2024-12-07 16:32 | XMS_ITS | Encounter Summary ---
Author Organization [facility], [facility] Address [address] [place] [address] Phone Care Team Providers Care Bridge Tender Name Role Phone Montanez Kp Primary Care Provider Encounter Details Date Type Department Care Team (Late st Contact Info) Description 12/01/2024 Treatment [facility] [address] [place] [address] Ayad Monahan NP [address] [place] [address] End stage renal disease; Dependence on renal dialysis Social History Tobacco Use Types Packs/Day Years [...] on file documented as of this encounter Miscellaneous Notes * Dialysis Note - Ayad Monahan NP - 12/01/2024 12:00 AM CDT BASIC NOTE Patient: Rei Darrel Queen : 1970 Note Author: AYAD MONAHAN NP Service Date: 12/01/2024 This patient was personally seen for a basic visit as part of routine monthly dialysis care for end stage renal disease. Attending Bank Manager: RITA MENENDEZ Dialysis Location: [facility] Schedule: Shift: 1 OVERVIEW Patient is stable. Patient has no complaints. COMMENTS: Seen on HD. No concerns. HOME MEDICATIONS [facility] atorvastatin 40 mg tablet Take 1 tablet by mouth every morning. Aashish Chewable Aspirin 81 mg tablet,chewable Take 1 tablet by mouth once a day. bumetanide 2 mg tablet Take 1 tablet by mouth twice a day. bupropion HCl 300 mg tablet extended release 24 hr Take 1 tablet by mouth every morning. buspirone 10 mg tablet Take 1 tablet by mouth twice a day. colchicine 0.6 mg tablet Take 1/2 tablet by mouth once a day. diphenhydramine HCl 50 mg capsule Take 1 capsule by mouth once a day as needed. Eliquis 2.5 mg tablet Take 1 tablet by mouth twice a day. fluoxetine 40 mg capsule Take 1 capsule by mouth once a day. hydrocodone-acetaminophen 5-325 mg tablet Take 1 tablet by mouth every six hours as needed for pain. hydroxyzine HCl 50 mg tablet Take 2 tablet by mouth every night at bedtime as needed. insulin lispro 100 unit/mL insulin pen, half-unit Inject 1 unit subcutaneously twice a day. [per sliding scale] isosorbide mononitrate 60 mg tablet extended release 24 hr Take 1 tablet by mouth once a day. levothyroxine 88 mcg tablet Take 1 tablet by mouth every morning. Mounjaro 12.5 mg/0.5 mL pen injector Inject 12.5 mg subcutaneously once a week. nitroglycerin 0.4 mg tablet, sublingual Place 1 tablet under tongue as directed as needed. [every 5 minutes PRN chest pain max dose 3 and consult physician] pantoprazole 40 mg tablet,delayed release (DR/EC) Take 1 tablet by mouth once a day. promethazine 25 mg tablet Take 1 tablet by mouth every six hours as needed. [nausea] ranolazine 1,000 mg tablet extended release 12 hr Take 1 tablet by mouth twice a day. Renal Plex D Take 1 tablet in mouth every evening. Sevelamer Carbonate Tablet 800 mg tablet Take 1 Tablet By Mouth Three times a day With Meals. tamsulosin 0.4 mg capsule Take 1 capsule by mouth once a day. tizanidine 2 mg tablet Take 1 tablet by mouth twice a day. [for muscle spasms] trazodone 100 mg tablet Take 3 tablet by mouth every night. Tresiba FlexTouch U-200 200 unit/mL (3 mL) insulin pen Inject 52 unit subcutaneously every morning. [facility] Allergies Allergen: CODEINE Reaction: Throat Constriction Severity: Severe Allergen: CODEINE Reaction: Unknown Allergen: Haldol Reaction: Unknown Allergen: Haldol Reaction: Unknown Allergen: IODINATED CONTRAST MEDIA Reaction: Shortness of breath Allergen: IODINATED CONTRAST MEDIA Reaction: Unknown Allergen: IODINE Reaction: Unknown Allergen: IODINE Reaction: Unknown Allergen: ketorolac Reaction: Nausea/Vomiting Allergen: ketorolac Reaction: Unknown Allergen: metoclopramide Reaction: Shortness of breath Allergen: metoclopramide Reaction: Unknown Allergen: naproxen Reaction: Nausea/Vomiting Allergen: naproxen Reaction: Unknown Allergen: Nubain Reaction: Unknown Allergen: Nubain Reaction: Unknown Allergen: prochlorperazine Reaction: Unknown Allergen: prochlorperazine Reaction: Unknown Allergen: SULFA SULFONAMIDE ANTIBIOTICS Reaction: Shortness of breath Allergen: SULFA SULFONAMIDE ANTIBIOTICS Reaction: Unknown Allergen: Zofran Reaction: Abdominal Pain Allergen: Zofran Reaction: Unknown DIALYSIS PRESCRIPTION Treatment Data Treatment Date: 12/01/2024 started at: 7:48 AM Dialysate / Machine Temp (prescribed): 37.0*C Dialysate / Machine Temp (actual): 37.1*C BFR (prescribed): 450 BFR (actual): 400 DFR (prescribed): Autoflow 2.0 DFR (actual): 800 Prescribed Time: 03:45 EDW (kg): 90.0 Dialyzer: 180NRe Optiflux Dialysate: 3.0 K, 2.5 Ca, 1.0 Mg, 100 Dextrose (N3251) Sodium: 138 Bicarb: 34 Pre Dialysis Vitals Pre BP Sit: 130/85 Pre Wt (kg): 90.1 EDW Deviation (kg): 0.1 Temp: 98.0*F Current Dialysis Vitals BP Sit: 168/81 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 Fluid status acceptable. Post BP Sit 127/49 - 11/28/2024 150/56 - 11/27/2024 162/82 - 11/24/2024 Post Wt (kg) 89.9 - 11/28/2024 89.5 - 11/27/2024 90.5 - 11/24/2024 EDW (kg) 90.0 - 11/28/2024 90.0 - 11/27/2024 90.0 - 11/24/2024 Deviation (kg) -0.1 - 11/28/2024 -0.5 - 11/27/2024 0.5 - 11/24/2024 ADEQUACY ASSESSMENT spKt/V (Daugirdas II) 1.49 (11/19/24) 1.67 (10/22/24) 1.50 (09/29/24) eKdrt/V 1.29 (11/19/24) 1.45 (10/22/24) 1.28 (09/29/24) % Urea Reduction 74 (11/19/24) 77 (10/22/24) 73 (09/29/24) BUN 43 (11/19/24) 31 (10/22/24) 44 (09/29/24) BUN Post Dialysis 11 (11/19/24) 7 (10/22/24) 12 (09/29/24) Creatinine 3.69 (11/19/24) 3.23 (10/22/24) 3.22 (09/29/24) Bicarbonate (CO2) 21 (11/19/24) 27 (10/22/24) 27 (09/29/24) Sodium 138 (11/19/24) 140 (10/22/24) 141 (09/29/24) ACCESS ASSESSMENT Vascular access examined. COMMENTS: Continues to follow with dr cornelius [employer] - Bovine Left Upper Arm Active (In Use) - 01/31/2023 Placed - 09/28/2022 Access Flow 348 (10/31/24) 686 (10/08/24) 271 (08/15/24) ANEMIA ASSESSMENT Hemoglobin 11.9 (11/27/24) 11.9 (11/19/24) 11.2 (11/05/24) Iron Saturation (TSat) 28 (11/19/24) 21 (10/22/24) 32 (09/29/24) Ferritin 171 (10/22/24) 545 (07/22/24) 290 (06/06/24) Iron 64 (11/19/24) 43 (10/22/24) 63 (09/29/24) TIBC 227 (11/19/24) 206 (10/22/24) 198 (09/29/24) Reticulocyte Hemoglobin 32.7 (04/30/24) MCV 100 (11/19/24) 96 (10/22/24) 96 (09/29/24) Platelets 200 (11/19/24) 225 (10/22/24) 254 (09/29/24) BMM ASSESSMENT Calcium 8.7 11/19/24 8.3 10/22/24 8.3 09/29/24 Corrected Calcium 8.9 11/19/24 8.6 10/22/24 8.8 09/29/24 Phosphorus 4.4 11/19/24 5.0 10/22/24 4.1 09/29/24 Calcium Phosphorus Product 38 11/19/24 42 10/22/24 34 09/29/24 PTH 254 10/22/24 195 07/22/24 194 06/06/24 Vitamin D, 25-OH, Total 50.4 07/22/24 Magnesium 1.8 10/22/24 1.9 07/22/24 1.8 06/06/24 Alkaline Phosphatase 83 10/22/24 107 07/22/24 92 06/06/24 Aluminum <5 07/22/24 <5 01/23/24 NUTRITION ASSESSMENT Albumin 3.8 11/19/24 3.6 10/22/24 3.4 09/29/24 Potassium 4.1 11/27/24 6.1 11/19/24 3.8 10/22/24 eNPCR 0.72 11/19/24 0.60 10/22/24 0.64 09/29/24 Hemoglobin A1C 5.8 10/22/24 6.7 07/22/24 6.5 04/23/24 ADDITIONAL LABS WBC 7.42 (11/19/24) 5.06 (10/22/24) 5.78 (09/29/24) TSH 4.142 (10/22/24) 3.194 (07/22/24) 3.920 (04/23/24) Cholesterol 273 (07/22/24) 172 (01/23/24) HDL 34 (07/22/24) 43 (01/23/24) LDL Calculated 190 (07/22/24) 95 (01/23/24) Triglycerides 247 (07/22/24) 169 (01/23/24) Hepatitis B Surface Ab 301 (07/22/24) 233 (04/30/24) ADDITIONAL COMMENT COMMENTS: No changes today Signed by: AYAD MONAHAN NP on 12/01/2024 at 12:37:01 PM Transcribed by: AYAD MONAHAN NP on 12/01/2024 at 12:37:01 PM documented in this encounter Plan of Treatment Not on file documented as of this encounter Visit Diagnoses Diagnosis End stage renal disease Dependence on renal dialysis documented in this encounter Care Teams Bridge Tender Relationship Specialty Start Date End Date Kp Montanez DO [address] [place] [address] PCP - General Internal Medicine 01/07/23 documented as of this encounter
--- OUTSIDE RECORDS SUMMARY | 2024-12-07 16:32 | XMS_ITS ---
Author Name Katia, Clinic Address [address] [place] [address] Phone [phone] Organization [facility] e, NA DOCUMENT DISCLAIMER Multiple document versions may exist, please be sure you review the latest version. The information in the [facility] Continuity of Care Document represents a summary of certain health and medical information. It may not contain the complete medical history for the patient and should be independently verified. The represented time in the document is Eastern Time. 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 Active January 14, 2024 End stage renal disease N18.6 Active November 26, 2023 Unstable angina I20.0 Active October 27 Chest pain, unspecified R07.9 Active October 28, 2023 Unstable angina I20.0 Active October 10, 2023 Altered mental status, unspecified R41.82 Active February 12, 2023 Unspecified protein-calorie malnutrition E46 Active June 11, 2022 Allergy, unspecified, subsequent encounter T78.40XD Active June 01, 2022 Nausea R11.0 Active June 01 Cramp and spasm R25.2 Active June 01, 2022 Shortness of breath R06.02 Active June 01, 2022 Hypotension of hemodialysis I95.3 Active June 01, 2022 Chest pain, unspecified R07.9 Active Alistair alida 2022 Fever, unspecified R50.9 Active May 202022 Pain, unspecified R52 Active May Depression, unspecified F32.A Active Alistair alida2022 Essential (primary) hypertension I10 Active June 01, 2022 Encounter for screening for respiratory tuberculosis Z11.1 Active June 01, 2022 Encounter for immunization Z23 Active J anuary 2022 Coagulation defect, unspecified D68.9 Active June 01, 2022 Encounter for fitting and ad justment of extracorporeal dialysis catheter Z49.01 Active June 01, 2022 Secondary hyperparathyroidism of renal origin N25.81 Active June 01, 2022 Iron deficiency anemia, unspecified D50.9 Activ e June 01, 2022 Dependence on renal dialysis Z99.2 Active June 01, 2022 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 Active Joselito [facility] 2022 Type 2 diabetes mellitus wit h diabetic neuropathy, unspecified E11.40 Active June 01, 2022 Ischemic cardiomyopathy I25.5 Active Alistair alida2022 Old myocardial infarction I25.2 Active Luigi baez 2022 intermission coordinator (current) use of anticoagulants Z79.01 Active June 01, 2022 Long-term (current) use of i njectable non-insulin antidiabetic drugs Z79.85 Active June 01, 2022 intermission coordinator (current) use of aspirin Z79.82 Active June 01, 2022 Hypothyroidism, unspecified E03.9 Active June 01, 2022 intermission coordinator (current) use of insulin Z79.4 Active June 01, 2022 Hyperlipidemia, unspecified E78.5 Active June 01, 2022 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 Active May 202022 Hypertensive heart and chron ic kidney disease with heart failure and with stage 5 chronic kidney disease, or end stage renal disease I13.2 Active Alistair alida 2022 Type 2 diabetes mellitus wit h diabetic chronic kidney disease E11.22 Active June 01, 2022 Anemia in chronic kidney disease D63.1 Active June 01, 2022 Chronic kidney disease, stage 5 N18.5 Active June 01, 2022 ALLERGIES AND ADVERSE REACTIONS Substance Reaction Severity Status naproxen Nausea/Vomiting Active naproxen Unknown Active prochlorperazine Unknown Active Nubain Unknown Active metoclopramide Shortness of breath Active metoclopramide Unknown Active ketorolac Nausea/Vomiting Active ketorolac Unknown Active Haldol Unknown Active IODINE Unknown Active IODINATED CONTRAST MEDIA Shortness of breath Active IODINATED CONTRAST MEDIA Unknown Act jaylen SULFA SULFONAMIDE ANTIBIOTICS Shortness of breath Active SULFA SULFONAMIDE ANTIBIOTICS Unknown Active CODEINE Throat Constriction Severe Active CODEINE Unknown Active Zofran Abdominal Pain Active Zofran Unknown Active SOCIAL HISTORY Tobacco Use Status Tobacco Type Unknown if ever consumed tobacco - Caregiver Characteristics No Information Available Characteristics of Home environment No Information Available Gender and Sex Information Gender Identity Sexual Orientation Male Decline to answer MEDICATIONS Prescribed Medications for Dialysis Treatments Medication Instructions Dosage Route Start Date End Date Stat Diphenhydramine PRN-may repeat x1 Itching 25 mg Intravenous - push March 10, 2024 March 09, 2025 Active Heparin Sodium (Porcine) 1,000 Units/mL Systemic Bolus, Every Treatment, Total treatment minutes 240 4000 units Intravenous - push April 07, 2024 April 06, 2025 Active Iron Sucrose (Venofer) During Dialysis, 3X Week 100 mg Intravenous - push October 27, 2024 November 17, 2024 Active Midodrine HCl (Proamatine) During Dialysis, PRN-may repeat x1 Systolic <100 5 mg Oral August 08, 2024 August 07, 2025 Active Nitroglycerin (Nitroquick) PRN-may repeat x2 Q 5 minutes Chest Pain Presumed to be Cardiac 0.4 mg Sublingual March 19, 2024 March 18, 2025 Active Iron Sucrose (Venofer) During Dialysis, 3X Week 100 mg Intravenous - push November 26, 2024 December 17, 2024 Discontinued Home Medications Medication Instructions Dosage Route Start Date End Date Stat atorvastatin 40 mg Take by mouth every morning 1 tablet ORAL June 22, 2023 Active Aashish Chewable Aspirin 81 mg Take by mouth once a day 1 tablet ORAL May 07, 2023 Active bumetanide 2 mg Take by mouth twice a day 1 tablet ORAL August 13, 2024 Active bupropion HCl 300 mg Take by mouth every morning 1 tablet ORAL June 22, 2023 Active buspirone 10 mg Take by mouth twice a day 1 tablet ORAL November 28, 2023 Active carvedilol 12.5 mg Take by mouth twice a day 1 tablet ORAL August 27, 2024 Active colchicine 0.6 mg Take by mouth once a day 1/2 tablet ORAL May 07, 2024 Active diphenhydramine HCl 50 mg Take by mouth once a day as needed 1 capsule ORAL November 28, 2023 Active Eliquis 2.5 mg Take by mouth twice a day 1 tablet ORAL June 06, 2022 Active fluoxetine 40 mg Take by mouth once a day 1 capsule ORAL November 12, 2023 Active hydrocodone-acetam inophen 5-325 mg Take by mouth every six hours as needed for pain 1 tablet ORAL August 13, 2024 Active hydroxyzine HCl 50 mg Take by mouth every night at bedtime as needed 2 tablet ORAL May 07, 2024 Active insulin lispro 100 unit/mL Inject subcutaneously twice a day 1 unit SUBCUTANEOUS November 28, 2023 Active isosorbide mononitrate 60 mg Take by mouth once a day 1 tablet ORAL May 22, 2023 Active levothyroxine 88 mcg Take by mouth every morning 1 tablet ORAL June 06, 2022 Active Mounjaro 12.5 mg/0.5 mL Inject subcutaneously once a week 12.5 mg SUBCUTANEOUS November 28, 2023 Active nitroglycerin 0[address] under tongue as directed as needed 1 tablet SUBLINGUAL June 06, 2022 Active pantoprazole 40 mg Take by mouth once a day 1 tablet ORAL May 07, 2024 Active promethazine 25 mg Take by mouth every six hours as needed 1 tablet ORAL August 13, 2024 Active ranolazine 1,000 mg Take by mouth twice a day 1 tablet ORAL May 07, 2024 Active Renal Plex D Take in mouth every evening 1 tablet in mouth June 20, 2022 Active Sevelamer Carbonate Tablet 800 mg Take By Mouth Three times a day With Meals 1 Tablet By Mouth May 28, 2024 May 25, 2025 Active tamsulosin 0.4 mg Take by mouth once a day 1 capsule ORAL February 20, 2024 Active tizanidine 2 mg Take by mouth twice a day 1 tablet ORAL May 07, 2024 Active trazodone 100 mg Take by mouth every night 3 tablet ORAL November 28, 2023 Active Tresiba FlexTouch U-200 200 unit/mL (3 mL) Inject subcutaneously every morning 52 unit SUBCUTANEOUS November 12, 2023 Active VITAL SIGNS Post-Treatment Vital Signs Vital Sign Value Date / Time Blood Pressure-sitting 164/72 mmHg December 05, 2024 07:50 AM Blood Pressure-standing 165/71 mmHg December 05, 2024 07:50 AM Heart Rate 76 beats per minute December 05 07:50 AM Respiratory Rate 16 breaths per minute December 05, 2024 07:50 AM Temperature 97.5 deg. F December 05, 2024 07 :50 AM Weight Vital Sign Value Date / Time Estimated Dry Weight 89.5 kg December 01 11:59 PM Pre-Dialysis 90.30 kg December 05, 2024 07 :50 AM Post-Dialysis 89.50 kg December 05, 2024 07 :50 AM Other Other Value Date / Time Height 165 cm September 14, 2022 1 2:00 AM LAB RESULTS Hematology Result Type Result Value Relevant Referen ce Range Interpretation Date WBC (No Diff) 8.34 1000/mcL 4.80 - 10.80 1000/mcL - June 25, 2024 Neutrophils 68.4 % 40.0 - 75.0 % - June Platelets 371 1000/mcL 130 - 400 1000/mcL - Febr uary 2024 Transferrin Sat. (Calc) 20 % 20 - 55 % - June 25 TIBC (Calc) 183 mcg/dL 185 - 515 mcg/dL Low uar 2024 UIBC/TIBC 146 mcg/dL 155 - 355 mcg/dL Low June 25, 2024 Ferritin 545 ng/mL 22 - 322 ng/mL High July 22, 2024 Neutrophils 74.9 % 40.0 - 75.0 % - July 22, 2024 WBC (No Diff) 7.05 1000/mcL 4.80 - 10.80 1000/mcL - July 22, 2024 Platelets 242 1000/mcL 130 - 400 1000/mcL - Fernando h 2024 TIBC (Calc) 227 mcg/dL 185 - 515 mcg/dL - July Transferrin Sat. (Calc) 28 % 20 - 55 % - July 22, 2024 UIBC/TIBC 164 mcg/dL 155 - 355 mcg/dL - July TIBC (Calc) 215 mcg/dL 185 - 515 mcg/dL - August Transferrin Sat. (Calc) 38 % 20 - 55 % - August 20, 2024 UIBC/TIBC 134 mcg/dL 155 - 355 mcg/dL Low August Platelets 237 1000/mcL 130 - 400 1000/mcL - Apri l 2024 Neutrophils 68.0 % 40.0 - 75.0 % - August 20, 2024 WBC (No Diff) 6.68 1000/mcL 4.80 - 10.80 1000/mcL - August 20, 2024 Hemoglobin x 3 32.4 % 42.0 - 54.0 % Low August 192024 Hemoglobin x 3 36.6 % 42.0 - 54.0 % Low September 17, 2024 Hemoglobin x 3 29.4 % 42.0 - 54.0 % Low September 26, 2024 Transferrin Sat. (Calc) 32 % 20 - 55 % - September 29, 2024 UIBC/TIBC 135 mcg/dL 155 - 355 mcg/dL Low September 29, 2024 TIBC (Calc) 198 mcg/dL 185 - 515 mcg/dL - September 29, 2024 Iron 63 mcg/dL 45 - 160 mcg/dL - September 29 025 Monocytes 6.9 % 3.0 - 10.0 % - September 29, 2024 Eosinophil 6.4 % 0.0 - 7.0 % - September 29, 2024 Neutrophils 59.6 % 40.0 - 75.0 % - September 29 25 Lymphocytes 24.0 % 19.0 - 48.0 % - September 29 25 Basophils 1.1 % 0.0 - 1.5 % - September 29, 2024 MICHAEL 2.0 % 0.0 - 4.0 % - September 29, 2024 WBC (No Diff) 5.78 1000/mcL 4.80 - 10.80 1000/mcL - September 29, 2024 MCH 32.7 pg 27.0 - 31.0 pg High September 29 25 Hemoglobin x 3 30.9 % 42.0 - 54.0 % Low September 29, 2024 MCHC 34.1 g/dL 30.0 - 36.0 g/dL - September 29, 2024 RDW 16.1 % 11.5 - 14.5 % High September 29 Platelets 254 1000/mcL 130 - 400 1000/mcL - September 29, 2024 Hemoglobin x 3 31.5 % 42.0 - 54.0 % Low October 01, 2024 Hemoglobin x 3 30.3 % 42.0 - 54.0 % Low October 08, 2024 Hemoglobin x 3 33.6 % 42.0 - 54.0 % Low October 15, 2024 Ferritin 171 ng/mL 22 - 322 ng/mL - October 22 025 Iron 43 mcg/dL 45 - 160 mcg/dL Low October 22, 2024 UIBC/TIBC 163 mcg/dL 155 - 355 mcg/dL - October 22, 2024 TIBC (Calc) 206 mcg/dL 185 - 515 mcg/dL - October Transferrin Sat. (Calc) 21 % 20 - 55 % - October 22, 2024 Lymphocytes 30.5 % 19.0 - 48.0 % - October 22, Neutrophils 57.5 % 40.0 - 75.0 % - October 22, 2 025 Monocytes 6.0 % 3.0 - 10.0 % - October 22 Basophils 0.8 % 0.0 - 1.5 % - October 22, 2024 Eosinophil 2.9 % 0.0 - 7.0 % - October 22, 2024 WBC (No Diff) 5.06 1000/mcL 4.80 - 10.80 1000/mcL - October 22, 2024 MICHAEL 2.3 % 0.0 - 4.0 % - October 22, 2024 MCH 32.9 pg 27.0 - 31.0 pg High October 22, RDW 15.3 % 11.5 - 14.5 % High October 22 MCHC 34.2 g/dL 30.0 - 36.0 g/dL - October 22, 2024 Platelets 225 1000/mcL 130 - 400 1000/mcL - October 22, 2024 Hemoglobin x 3 36 % 42.0 - 54.0 % Low October Hemoglobin x 3 33.6 % 42.0 - 54.0 % Low October MCH 32.6 pg 27.0 - 31.0 pg High November 19, Platelets 200 1000/mcL 130 - 400 1000/mcL - November 19, 2024 RDW 15.1 % 11.5 - 14.5 % High November 19 MCHC 32.6 g/dL 30.0 - 36.0 g/dL - November 19, 2024 Hemoglobin x 3 35.7 % 42.0 - 54.0 % Low November HGB 11.9 g/dL 14.0 - 18.0 g/dL Low November 19, 2024 HCT 36.4 % 42.0 - 52.0 % Low November 19 MICHAEL 1.8 % 0.0 - 4.0 % - November 19, 2024 Basophils 1.3 % 0.0 - 1.5 % - November 19, 2024 RBC 3.64 mill/mcL 4.70 - 6.10 mill/mcL Low November 19, 2024 WBC (No Diff) 7.42 1000/mcL 4.80 - 10.80 1000/mcL - November 19, 2024 Lymphocytes 13.3 % 19.0 - 48.0 % Low November 19 Neutrophils 76.0 % 40.0 - 75.0 % High November 19 Eosinophil 1.6 % 0.0 - 7.0 % - November 19, 2024 Monocytes 6.0 % 3.0 - 10.0 % - November 19 TIBC (Calc) 227 mcg/dL 185 - 515 mcg/dL - November Transferrin Sat. (Calc) 28 % 20 - 55 % - November 19, 2024 Iron 64 mcg/dL 45 - 160 mcg/dL - November 19, 2024 UIBC/TIBC 163 mcg/dL 155 - 355 mcg/dL - November 19, 2024 Hemoglobin x 3 35.7 % 42.0 - 54.0 % Low November HGB 11.9 g/dL 14.0 - 18.0 g/dL Low November 27, 2024 Hemoglobin x 3 37.8 % 42.0 - 54.0 % Low November HGB 12.6 g/dL 14.0 - 18.0 g/dL Low December 03, 2024 Metabolic/Renal Result Type Result Value Relevant Reference Range Interpre tation Date Hemoglobin A1c 6.7 % 4.8 - 5.9 % High July 22, 2024 BUN 44 mg/dL 6 - 19 mg/dL High September 08 URR, Calc 82 % 65 - 80 % High September 08, 2024 BUN, Post 8 mg/dL 6 - 19 mg/dL - September 08 BUN, Post 12 mg/dL 6 - 19 mg/dL - September 29, 2024 Bicarbonate 27 mEq/L 22 - 29 mEq/L - September 29 Potassium 4.0 mEq/L 3.5 - 5.1 mEq/L - September 29 Chloride 103 mEq/L 96 - 108 mEq/L - September 29 Sodium 141 mEq/L 136 - 145 mEq/L - September 29 URR, Calc 73 % 65 - 80 % - September 29, 2024 BUN/Creat Ratio 13.7 10.0 - 20.0 - September 29, 2024 BUN 44 mg/dL 6 - 19 mg/dL High September 29, 2024 Creatinine, Serum 3.22 mg/dL 0.60 - 1.30 mg/dL High September 29, 2024 URR, Calc 77 % 65 - 80 % - October 22, 2024 BUN, Post 7 mg/dL 6 - 19 mg/dL - October 22 Creatinine, Serum 3.23 mg/dL 0.60 - 1.30 mg/dL High October 22, 2024 BUN/Creat Ratio 9.6 10.0 - 20.0 Low October 22, 2024 Hemoglobin A1c 5.8 % 4.8 - 5.9 % - October 22, 2024 BUN 31 mg/dL 6 - 19 mg/dL High October 22 Potassium 3.8 mEq/L 3.5 - 5.1 mEq/L - October 22, 2024 Chloride 102 mEq/L 96 - 108 mEq/L - October 22, 025 Bicarbonate 27 mEq/L 22 - 29 mEq/L - October 22, 025 Sodium 140 mEq/L 136 - 145 mEq/L - October 22, 2024 URR, Calc 74 % 65 - 80 % - November 19, 2024 BUN, Post 11 mg/dL 6 - 19 mg/dL - November 19 Sodium 138 mEq/L 136 - 145 mEq/L - November 19, 2024 Potassium 6.1 mEq/L 3.5 - 5.1 mEq/L High November 19, 2024 Creatinine, Serum 3.69 mg/dL 0.60 - 1.30 mg/dL High November 19, 2024 BUN/Creat Ratio 11.7 10.0 - 20.0 - November 19, 2024 Chloride 104 mEq/L 96 - 108 mEq/L - November 19, 2 025 Bicarbonate 21 mEq/L 22 - 29 mEq/L Low November 19, 2 025 BUN 43 mg/dL 6 - 19 mg/dL High November 19 Potassium 4.1 mEq/L 3.5 - 5.1 mEq/L - November 27, 2024 HD Adequacy Result Type Result Value Relevant Referen ce Range Interpretation Date Krt/V 0.00 No Reference Ran ge Provided - July 22, 2024 Krt/V 0.00 No Reference Ran ge Provided - July 30, 2024 Krt/V 0.00 No Reference Ran ge Provided - August 20, 2024 eKt/V ([place]) 1.65 No Reference Range Provided - September 08, 2024 wstdKt/V, residual 0.0 No Reference Range Provided - September 08, 2024 wstdKt/V 2.7 No Reference Ran ge Provided - September 08, 2024 spKt/V (Daugirdas II) 1.90 No Referen ce Range Provided - September 08, 2024 spKt/V Gotch 1.84 No Reference Ran ge Provided - September 08, 2024 Krt/V 0.00 No Reference Ran ge Provided - September 08, 2024 wstdKt/V without residual 2.7 No Reference Range Provided - September 08, 2024 Krt/V 0.00 No Reference Ran ge Provided - September 29, 2024 wstdKt/V without residual 1.6 No Reference Range Provided - September 29, 2024 spKt/V Got 1.48 No Reference Ran ge Provided - September 29, 2024 wstdKt/V, residual 0.0 No Reference Range Provided - September 29, 2024 eKt/V ([place]) 1.30 No Reference Range Provided - September 29, 2024 wstdKt/V 1.6 No Reference Ran ge Provided - September 29, 2024 spKt/V (Daugirdas II) 1.50 No Referen ce Range Provided - September 29, 2024 Krt/V 0.00 No Reference Ran ge Provided - October 22, 2024 wstdKt/V, residual 0.0 No Reference Range Provided - October 22, 2024 wstdKt/V without residual 2.5 No Reference Range Provided - October 22, 2024 spKt/V Got 1.68 No Reference Ran ge Provided - October 22, 2024 spKt/V (Daugirdas II) 1.67 No Referen ce Range Provided - October 22, 2024 wstdKt/V 2.5 No Reference Ran ge Provided - October 22, 2024 eKt/V ([place]) 1.45 No Reference Range Provided - October 22, 2024 spKt/V Got 1.50 No Reference Ran ge Provided - November 19, 2024 Krt/V 0.00 No Reference Ran ge Provided - November 19, 2024 spKt/V (Daugirdas II) 1.49 No Referen ce Range Provided - November 19, 2024 eKt/V ([place]) 1.30 No Reference Range Provided - November 19, 2024 wstdKt/V without residual 2.4 No Reference Range Provided - November 19, 2024 wstdKt/V 2.4 No Reference Ran ge Provided - November 19, 2024 wstdKt/V, residual 0.0 No Reference Range Provided - November 19, 2024 Bone/Mineral Result Type Result Value Relevant Referen ce Range Interpretation Date Magnesium 1.7 mg/dL 1.6 - 2.6 mg/dL - January 23, 2024 Magnesium 1.8 mg/dL 1.6 - 2.6 mg/dL - April 23, 2024 Magnesium 1.8 mg/dL 1.6 - 2.6 mg/dL - May 202024 Vitamin D 25 Hydroxy 50.4 ng/mL 30.0 - 100.0 ng/mL - July 22, 2024 PTH-Intact, Plasma 195 pg/mL 16 - 80 pg/mL High Jul Magnesium 1.9 mg/dL 1.6 - 2.6 mg/dL - July 22, 2024 Phosphorus 4.1 mg/dL 2.6 - 4.5 mg/dL - September 29, 025 Ca x P Product 34 0 - September 29 25 Calcium, Total 8.3 mg/dL 8.4 - 10.2 mg/dL Low September 29, 2024 Corrected Ca x P Product 36 0 - September 29, 2024 Magnesium 1.8 mg/dL 1.6 - 2.6 mg/dL - October 22, 2024 Corrected Ca x P Product 43 0 - October 22, 2024 PTH-Intact, Plasma 254 pg/mL 16 - 80 pg/mL High Oct Calcium, Total 8.3 mg/dL 8.4 - 10.2 mg/dL Low October 22, 2024 Phosphorus 5.0 mg/dL 2.6 - 4.5 mg/dL High October 22, 2024 Ca x P Product 42 0 - October 22, 2 025 Alkaline Phosphatase 83 U/L 40 - 129 U/L - 2024 Corrected Ca x P Product 39 0 - - November 19, 2024 Phosphorus 4.4 mg/dL 2.6 - 4.5 mg/dL - November 19, 2024 Ca x P Product 38 0 - November 19, 2 025 Calcium, Total 8.7 mg/dL 8.4 - 10.2 mg/dL - November 19, 2024 Liver/Nutrition Result Type Result Value Relevant Reference Range Interpre tation Date LDH 142 U/L 118 - 273 U/L - July 22, 025 eNPCR 0.65 No Reference Ran ge Provided - September 08, 2024 Total Protein 5.5 g/dL 6.0 - 8.5 g/dL Low September 29, 2024 Albumin (BCG) 3.4 g/dL 3.5 - 5.2 g/dL Low September 29, 2024 Glucose 142 mg/dL 70 - 100 mg/dL High September 29 A/G Ratio 1.6 1.0 - 2.0 - September 29, 2024 Globulin (Calc) 2.1 g/dL 2.0 - 4.0 g/dL - September 172024 eNPCR 0.64 No Reference Ran ge Provided - September 29, 2024 eNPCR 0.60 No Reference Ran ge Provided - October 22, 2024 LDH 127 U/L 118 - 273 U/L - October 22 Total Protein 5.7 g/dL 6.0 - 8.5 g/dL Low October Albumin (BCG) 3.6 g/dL 3.5 - 5.2 g/dL - October Globulin (Calc) 2.1 g/dL 2.0 - 4.0 g/dL - October 22, 2024 A/G Ratio 1.7 1.0 - 2.0 - October 22, 2024 Glucose 145 mg/dL 70 - 100 mg/dL High October 22 SGPT (ALT) 7 U/L 7 - 52 U/L - October 22, 2024 SGOT (AST) 10 U/L 13 - 39 U/L Low October 22, 2024 eNPCR 0.72 No Reference Ran ge Provided - November 19, 2024 Glucose 289 mg/dL 70 - 100 mg/dL High November 19 Globulin (Calc) 2.4 g/dL 2.0 - 4.0 g/dL - November 19, 2024 A/G Ratio 1.6 1.0 - 2.0 - November 19, 2024 Total Protein 6.2 g/dL 6.0 - 8.5 g/dL - November Albumin (BCG) 3.8 g/dL 3.5 - 5.2 g/dL - November Cardiovascular Result Type Result Value Relevant Reference Range Interpre tation Creatine Kinase 47 U/L 30 - 223 U/L - October Lipid Result Type Result Value Relevant Referen ce Range Interpretation Date Cholesterol, Total 273 mg/dL 0 - 199 mg/dL High [facility] 2024 Triglycerides 247 mg/dL 0 - 149 mg/dL High July VLDL (Calculated) 49 mg/dL 10 - 30 mg/dL [facility] 2024 HDL 34 mg/dL No Reference Ran ge Provided - July 22, 2024 Cholesterol HDL Ratio 8.0 0.0 - 4.5 High [facility] 2024 LDL, (Calculated) 190 mg/dL 0 - 99 mg/dL High July 22, 2024 Immunochemistry Result Type Result Value Relevant Referen ce Range Interpretation Date HCV s/co ratio 0.07 0.00 - 0.79 - January 23, 2024 HCV s/co ratio 0.08 0.00 - 0.79 - July 22, 2024 Endocrinology/Thyroid Result Type Result Value Relevant Referen ce Range Interpretation Date TSH 3rd Generation 1.109 mIU/L 0.300 - 3.000 mIU/L - January 23, 2024 TSH 3rd Generation 3.920 mIU/L 0.300 - 3.000 mIU/L High April 23, 2024 TSH 3rd Generation 3.194 mIU/L 0.300 - 3.000 mIU/L High July 22, 2024 TSH 3rd Generation 4.142 mIU/L 0.300 - 3.000 mIU/L High October 22, 2024 Trace Elements Result Type Result Value Relevant Reference Range Interpre tation Aluminum < 5 mcg/L 0 - 10 mcg/L - January Aluminum < 5 mcg/L 0 - 10 mcg/L - July 22 Infectious Diseases Result Type Result Value Relevant Referen ce Range Interpretation Date Hep B Surface Ag (HBsAg) Negative No Reference Range Provided - July 22, 2024 Hep B Surface Ab (anti-HBs) 301 mIU/mL No Reference Range Provided - July 22, 2024 HCV Ab (anti-HCV) Nonreactive No Reference R stephen Provided - July 22, 2024 DIALYSIS PRESCRIPTION Conventional Hemodialysis Data Element Value Order Date/Time December 01, 2024 Frequency 3X Week Treatment Days TueThuSat Dialyzer [id number] Optiflux Treatment Time (Total Minutes) 225 min Blood Flow Rate (mL/min) 450 mL/min Dialysate Flow Rate Autoflow 2.0 Estimated Dry Weight 89.5 kg Dialysate Concentrate 3.0 K, 2.5 Ca, 1.0 Mg, 100 Dextrose (N3251) Sodium (mEq/L) 138 mEq/L Bicarb Machine Setting (mEq/L) 34 mEq/L Dialysis Access Hemodialysis-AV Cyrus t-Biological - Bovine, Left Upper Arm, Brachial Artery to Cephalic Vein Access Placed on September 28, 2022 Arterial Needle Size 15g1 Venous Needle Size 15g1 IMMUNIZATIONS Vaccine Date Dose Route Status Flu Vaccine - Flublok Trivalent March 05, 2024 0.5 mL Intramuscular Completed HEPLISAV-B, series 4 of October 30, 2022 20.0 mcg Intramu scular Completed PNEUMOVAX September 18, 2022 0.5 mL Intramuscular Complet ed HEPLISAV-B, series 3 of August 25, 2022 20.0 mcg Intram uscular Completed HEPLISAV-B, series 2 of July 21, 2022 20.0 mcg Intram uscular Completed PREVNAR June 26, 2022 0.5 mL Intramuscular Comp leted HEPLISAV-B, series 1 of June 23, 2022 20.0 mcg Int ramuscular Completed TRANSPLANT WAITLIST STATUS No Information on Transplant Waitlist Status ADVANCE DIRECTIVES Directive Description Ordered By Effective Date Resuscitation status Full Code Yesi [place] Feb DIALYSIS TREATMENTS Conventional Hemodialysis Date Pre-Treatment Vitals Post-Treatment Anahi ls Duration (hr) BFR (mL/min) Dialysate Dialyzer Dialysis Access Meds Admin December 01, 2024 Weight 90.10 kg Weight 89.50 kg 03:57:00 400 3.0 K, 2.5 Ca, 1.0 Mg, 100 Dextrose (N3251) 180nre Optifl ux Blood Pressure-sitting 130/85 mmHg Blood Pressure-sit ting 151/69 mmHg Blood Pressure-standing 141/71 mmHg Blood Pressure-st anding 165/64 mmHg Heart Rate 85 beats per minute Heart Rate 84 beats per minute Respiratory Rate 16 breaths per minute Respiratory Rate 16 breaths per minute Temperature 98.0 deg. F Temperature 97.7 deg. F December 03, 2024 Weight 89.20 kg Weight 89.60 kg 03:37:00 430 3.0 K, 2.5 Ca, 1.0 Mg, 100 Dextrose (N3251) 180nre Optiflux Hemodialysis-AV Graft-Biological - Bovine, Left Upper Arm, Brachial Artery to Cephalic Vein Access Placed on September 28, 2022 Heparin Sodium (Porcine) 1,000 Units/mL Systemic; 4000units,Intravenous - push Iron Sucrose (Venofer); 100mg,Intravenous - push Blood Pressure-sitting 127/80 mmHg Blood Pressure-sit ting 178/80 mmHg Blood Pressure-standing 148/46 mmHg Blood Pressure-st anding 167/91 mmHg Heart Rate 99 beats per minute Heart Rate 81 beats per minute Respiratory Rate 18 breaths per minute Respiratory Rate 16 breaths per minute Temperature 96.7 deg. F Temperature 97.0 deg. F December 05, 2024 Weight 90.30 kg Weight 89.50 kg 03:31:00 460 3.0 K, 2.5 Ca, 1.0 Mg, 100 Dextrose ([id number]) 180nre [facility]od[facility]-AV Graft-Biological - Bovine, Left Upper Arm, Brachial Artery to Cephalic Vein Access Placed on September 28, 2022 Heparin Sodium (Porcine) 1,000 Units/mL Systemic; 4000units,Intravenous - push Iron Sucrose (Venofer); 100mg,Intravenous - push Blood Pressure-sitting 151/58 mmHg Blood Pressure-sit ting 164/72 mmHg Blood Pressure-standing 136/66 mmHg Blood Pressure-st anding 165/71 mmHg Heart Rate 80 beats per minute Heart Rate 76 beats per minute Respiratory Rate 16 breaths per minute Respiratory Rate 16 breaths per minute Temperature 97.2 deg. F Temperature 97.5 deg. F
--- OUTSIDE RECORDS SUMMARY | 2024-12-07 16:32 | XMS_ITS | Encounter Summary ---
Author Organization [facility] Address [address] [place] [address] Care Team Providers Care Oil Laboratory Analyst Name Role Phone Dez Evans MD Primary Care Provider [phone] Reason for Visit * Reason Onset Date Comments Question 12/04/2024 Encounter Details Date Type Department Care Team (Late st Contact Info) Description 12/04/[address] 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 documented in this encounter Plan of Treatment Upcoming Encounters Date Type Department Care Team (Late st Contact Info) Description 02/12/2025 3:30 PM CDT Office Visit [facility] [place] [address] [place] [address] Shannan Goodwin MD [address] [place] [address] documented as of this encounter Visit Diagnoses Not on filedocumented in this encounter Additional Health Concerns Assessment Noted Time PHQ-9 Depression Total Score: 1 06/29/19 25 2:57 AM SERVICE CAR OPERATOR documented as of this encounter Care Teams Oil Laboratory Analyst Relationship Specialty Start Date End Date Dez Evans MD [address] [place] [address] PCP - General Family Practice 06/18/24 documented as of this encounter
--- OUTSIDE RECORDS SUMMARY | 2024-12-07 16:32 | XMS_ITS | Encounter Summary ---
Author Organization [facility], [facility] Address [address] [place] [address] Phone Care Team Providers Care Winemaker Name Role Phone Kp Montanez DO Primary Care Provider [phone] Reason for Visit * Reason Comments Med Refill Encounter Details Date Type Department Care Team (Late st Contact Info) Description 05/08/2021 Refill [facility] [address] [place] [address] Ghazal Schmitt NP [address] [place] [address] Social History Tobacco Use Types [...] on filedocumented in this encounter Care Teams Winemaker Relationship Specialty Start Date End Date Kp Montanez DO [address] [place] [address] PCP - General Internal Medicine 01/07/23 documented as of this encounter
--- OUTSIDE RECORDS SUMMARY | 2024-12-07 16:32 | XMS_ITS | Clinical Summary ---
Author Organization [facility] Facility Address [address] [address] Care Team Providers Care Welder Machine Operator Name Role Phone Kp Montanez DO Primary Care Provider [phone] Allergies Active Allergy Reactions Criticality Noted Date Comments Codeine Other (see comments) 06/18/2018 Iodinated Contrast Media Other (see comments) 0 06/18/2018 Iodine Hives High 02/09/2012 Ketorolac Tromethamine Other (see comments) Metoclopramide Other (see comments) 06/18/2018 Nalbuphine Hcl Other (see comments) 06/18/2018 Ondansetron Anxiety,Hives High 02/09/2012 Prochlorperazine Anxiety Low 05/24/2019 Sulfa Antibiotics Other (see comments) 06/18/19 19 Ondansetron Hcl Other (see comments) 06/18/2018 Medications * This document contains information received from the source organization and may not represent a complete record from that organization. atorvastatin (LIPITOR) 40 MG tablet Take 1 tablet by mouth 1 (one) time each day Active isosorbide mononitrate (IMDUR) 30 MG 24 hr tablet Take 60 mg by mouth 1 (one) time each day Active levothyroxine (SYNTHROID, LEVOTHROID) 88 MCG tablet Take 1 tablet by mouth 1 (one) time each day Active nitroglycerin (NITROSTAT) 0.4 MG SL tablet every 5 (five) minutes if needed Active promethazine (PHENERGAN) 25 MG tablet Take 1 tablet by mouth every 6 (six) hours if needed 05/09/20 14 Active insulin lispro (HumaLOG) 100 UNIT/ML injection Inject under the skin SS twice daily Active Multiple Vitamin (multivitamin) tablet Take 1 tablet by mouth 1 (one) time each day Active traZODone (DESYREL) 100 MG tablet Take 200 mg by mouth every night Active cyclobenzaprine (FLEXERIL) 10 MG tablet Take 10 mg by mouth 1 (one) time each day if needed 10/02/19 13 Active Tresiba FlexTouch 200 UNIT/ML injection Inject 40 Units under the skin 1 (one) time each day 12/16/19 21 Active buPROPion XL (WELLBUTRIN XL) 150 MG 24 hr tablet Take 300 mg by mouth 1 (one) time each day 06/08/19 22 Active HYDROcodone-acetaminop hen (NORCO) 5-325 MG per tablet Take 1 tablet by mouth every 6 (six) hours if needed for moderate pain 06/20/19 22 Active potassium chloride (KLOR-CON M20) 20 MEQ CR tablet Take 2 tablets (40 mEq total) by mouth in the morning and 2 tablets (40 mEq total) in the evening and 2 tablets (40 mEq total) before bedtime. Do not crush or chew. . 540 tablet 1 11/18/19 22 Active Additional Information Patient not taking.Reported on 06/25/2024 bumetanide (BUMEX) 2 MG tabletIndications:Video Games Storywriter jose combined systolic and diastolic heart failure (HCC) TAKE 2 TABLETS BY MOUTH TWICE DAILY *take first thing in THE morning followed by second DOSE around SEVEN hours later* 360 tablet 03/07/20 22 Active Additional Information Patient taking differently: 2 mg Oral Daily, TAKE 2 TABLETS BY MOUTH TWICE DAILY *take first thing in THE morning followed by second DOSE around SEVEN hours later*, Reported on 06/25/2024 calcitriol (ROCALTROL) 0.25 MCG capsuleIndications:Sec ondary hyperparathyroidism of renal origin (HCC) take 1 capsule BY MOUTH THREE TIMES WEEKLY ON SATURDAY, SATURDAY AND SATURDAY EVENINGS 12 capsule 3 05/22/19 23 Active Additional Information Patient not taking.Reported on 06/25/2024 apixaban (ELIQUIS) 2.5 MG tablet Take 2.5 mg by mouth in the morning and 2.5 mg in the evening. 11/16/19 23 Active busPIRone (BUSPAR) 10 MG tablet Take 10 mg by mouth in the morning and 10 mg in the evening. Active carvedilol (COREG) 6.25 MG tablet Take 1 tablet by mouth in the morning and 1 tablet in the evening. 07/23/19 24 Active clopidogrel (PLAVIX) 75 MG tablet Take 75 mg by mouth in the morning. 05/07/20 23 Active Mounjaro 15 MG/0.5ML solution auto-injector Inject 15 mg under the skin once a week 05/04/20 24 Active tamsulosin (FLOMAX) 0.4 MG 24 hr capsule Take 0.4 mg by mouth in the morning. 02/20/20 24 Active prednisoLONE 5 MG tablet Take 5 mg by mouth 13 hours, 7 hours, and 1 hour before IV contrast 04/06/20 24 Active losartan (COZAAR) 50 MG tablet Take 50 mg by mouth 1 (one) time each day 06/05/19 23 Active LORazepam (Ativan) 1 MG tablet Take 1 tablet by mouth in the morning and 1 tablet in the evening and 1 tablet before bedtime. 11/17/19 23 Active hydrOXYzine (ATARAX) 50 MG tablet Take 50 mg by mouth once daily as needed 04/20/20 24 Active gabapentin (NEURONTIN) 300 MG capsule Take 300 mg by mouth in the morning and 300 mg in the evening. 02/09/20 21 Active pantoprazole (PROTONIX) 40 MG EC tablet Take 40 mg by mouth 1 (one) time each day Do not crush, chew, or split. Active Multiple Vitamins-Minerals (RENAPLEX-D PO) Take 1 tablet by mouth 1 (one) time each day Active sevelamer carbonate (RENVELA) 800 MG tablet Take 800 mg by mouth in the morning and 800 mg at noon and 800 mg in the evening. Take with meals. Swallow tablet whole; do not crush, break, or chew.. Active tiZANidine (ZANAFLEX) 2 MG capsule Take 2 mg by mouth every 8 (eight) hours if needed for muscle spasms Active cloNIDine (CATAPRES) 0.1 MG tablet Take 0.1 mg by mouth every 8 (eight) hours if needed for high blood pressure Active FLUoxetine (PROzac) 40 MG capsule Take 40 mg by mouth 1 (one) time each day Active Active Problems Problem Noted Date Diagnosed Date Vitamin D deficiency 03/01/2022 Bilateral adenoma of adrenal glands 05/24/2019 Overview (04/26/2020): Seen on CT abd at [facility] 10/2018 Coronary arteriosclerosis 05/24/2019 Noncompliance with medication regimen 10/27/2018 Essential hypertension 09/06/2018 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 ilure 09/06/2018 Normocytic anemia 09/06/2018 Chronic kidney disease stage 4 06/26/2018 Overview (2020): Update for Diagnosis Load 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 06/26/2018 Combined hyperlipidemia 01/15/2013 Acquired hypothyroidism 08/18/2012 Encounters Date Type Department Care Team Description 12/03/2024 Orders Only [facility] [address] [place] [address] Yesi Madison MD 12/01/2024 Treatment [facility], [facility] [address] [place] [address] Zoey Johnson NP End stage renal disease; Dependence on renal dialysis 11/27/2024 Orders Only [facility] [address] [place] [address] Yesi Madison MD 11/24/2024 Telephone [facility] [address] [place] [address] Yesi Madison MD 11/24/2024 Treatment [facility], [facility] [address] [place] [address] Ghazal Schmitt NP End stage renal disease; Dependence on renal dialysis 11/19/2024 Orders Only [facility] [address] [place] [address] Yesi Madison MD 11/17/2024 [facility], [facility] [address] [place] [address] Ghazal Schmitt NP End stage renal disease; Dependence on renal dialysis 11/10/[address] [place] [address], [facility] [address] [place] [address] Zoey Johnson NP End stage renal disease; Dependence on renal dialysis 11/05/2024 Orders Only [facility], [facility] [address] [place] [address] Yesi Madison MD 11/05/2024 Treatment 8[facility], [facility] [address] [place] [address] Yesi Madison MD End stage renal disease; Dependence on renal dialysis 10/22/2024 Orders Only [facility], [facility] [address] [place] [address] Yesi Madison MD 10/20/[address] [place] [address], [facility] [address] [place] [address] Zoey Johnson NP End stage renal disease; Dependence on renal dialysis 10/20/2024 Telephone [facility], [facility] [address] [place] [address] Yesi Madison MD 10/15/2024 Orders Only [facility], [facility] [address] [place] [address] Yesi Madison MD 10/15/[address] [place] [address], [facility] [address] [place] [address] Yesi Madison MD End stage renal disease; Dependence on renal dialysis 10/08/2024 Orders Only [facility], [facility] [address] [place] [address] Yesi Madison MD 10/06/[address] [place] [address], [facility] [address] [place] [address] Ghazal Schmitt NP End stage renal disease; Dependence on renal dialysis 10/05/2024 Telephone [facility], [facility] [address] [place] [address] Yesi Madison MD 10/01/2024 [facility], [facility] [address] [place] [address] Yesi Madison MD 09/29/2024 [facility], [facility] [address] [place] [address] Yesi Madison MD 09/29/2024 TCM in Dialysis Clinic [address] [place] [address], [facility] [address] [place] [address] Zoey Johnson NP 09/29/[address] [place] [address], [facility] [address] [place] [address] Zoey Johnson NP End stage renal disease; Dependence on renal dialysis 09/26/2024 [facility], [facility] [address] [place] [address] Yesi Madison MD 09/17/2024 Orders Only [facility], [facility] [address] [place] [address] Yesi Madison MD 09/10/2024 Orders Only [facility], [facility] [address] [place] [address] Yesi Madison MD 09/08/2024 Orders Only [facility], [facility] [address] [place] [address] Yesi Madison MD 09/08/[address] [place], [place] [address]rology [facility], [facility] [address] [place] [address] Yesi Madison MD End stage renal disease; Dependence on renal dialysis from Last 3 Months Immunizations Immunization Administration Dates Next Due Influenza Split High Dose Preservative Free IM 1 Influenza TIV (IM) 03/24/2013,03/10/2013 Influenza, Quadrivalent, Preservative Free 03/12,03/17/2014 Pneumococcal Polysaccharide 05/25/2019 Family History Medical History Relation Comments Cancer Father Diabetes Father Heart disease Father Cancer Mother Diabetes Mother Hypertension Mother Stroke Mother Hypertension Sibling Relation Status Comments Father Alive Mother Sibling Social History Tobacco Use Types Packs/Day Years Used Date Smoking Tobacco: Never Smokeless Tobacco: Never Alcohol Use Standard Drinks/Week Comments Not Currently 0 (1 standard drink = 0.6 oz pur e alcohol) Sex and Gender Information Value Date Recorded Sex Assigned at Not on file Legal Sex Male 12:43 PM EST Gender Identity Not on file Sexual Orientation Not on file Last Filed Vital Signs Vital Sign Reading Time Taken Comments Blood Pressure 130/76 03/01/2022 9:34 AM CDT Pulse 90 03/01/2022 9:34 AM CDT Temperature 36.7 C (98.1 F) 02/06/2021 11:25 AM CDT Respiratory Rate - - Oxygen Saturation - - Inhaled Oxygen Concentration - - Weight 107 kg (234 lb 12.8 oz) 03/01/2022 9:34 A M CDT Height 165.1 cm (5' 5 ) 03/01/2022 9:34 AM CDT Body Mass Index 39.07 03/01/2022 9:34 AM CDT Plan of Treatment Health Maintenance Due Date Last Done Comments Hepatitis B Vaccine (1 of 5 - Risk Dialysis 4-dose series) 1988 Colorectal Cancer Screening: Annual FOBT 2017 Colorectal Cancer Screening: Colonoscopy 2017 Colorectal Cancer Screening: Sigmoidoscopy 2017 Diabetes: Ophthalmology Exam 06/26/2018 Diabetes: Pedal Pulse Checked 06/26/2018 Diabetes: Sensory Foot Exam 06/26/2018 Diabetes: Visual Foot Exam 06/26/2018 Pneumococcal Vaccine: 50+ Ye ars (3 of 3 - PCV) 09/19/2023 09/18/2022, 05/25/2019 Influenza Vaccine (#1) 2025 , 06/14/2022, 06/06/2020, Additional history exists Diabetes: Hemoglobin A1C 01/22/2025 06/ 025, 07/22/2024, 06/27/2024, Additional history exists Pneumococcal Vaccine: Peds ( 0 to 5 Years) and At-Risk Patients (6 to 49 Years) Discontinued 09/18/2022, 05/25/2019 Procedures Procedure Name Priority Date/Time Associated Diagnosis Comments HEMATOLOGY Routine 12/03/2024 CHEMISTRY Routine 11/27/2024 HEMATOLOGY Routine 11/27/2024 [facility] RES[facility] Routine 11/19/2024 HD KINETICS Routine 11/19/2024 CHEMISTRY Routine 11/19/2024 POST CHEMISTRY Routine 11/19/2024 HEMATOLOGY Routine 11/19/2024 HEMATOLOGY Routine 11/05/2024 [facility] RESULTS Routine 10/22/2024 THYROIDS Routine 10/22/2024 HD KINETICS Routine 10/22/2024 POST CHEMISTRY Routine 10/22/2024 SPECIAL CHEMISTRY Routine 10/22/2024 CHEMISTRY Routine 10/22/2024 SPECIAL CHEMISTRY Routine 10/22/2024 CHEMISTRY Routine 10/22/2024 HEMATOLOGY Routine 10/22/2024 HEMATOLOGY Routine 10/15/2024 HEMATOLOGY Routine 10/08/2024 HEMATOLOGY Routine 10/01/2024 [facility] RESULTS Routine 09/29/2024 HD KINETICS Routine 09/29/2024 CHEMISTRY Routine 09/29/2024 POST CHEMISTRY Routine 09/29/2024 HEMATOLOGY Routine 09/29/2024 HEMATOLOGY Routine 09/26/2024 HEMATOLOGY Routine 09/17/2024 HEMATOLOGY Routine 09/10/2024 [facility] RESULTS Routine 09/08/2024 HD KINETICS Routine 09/08/2024 POST CHEMISTRY Routine 09/08/2024 CHEMISTRY Routine 09/08/2024 from Last 3 Months Results * (ABNORMAL) HEMATOLOGY (12/03/2024) Only the most recent of12 resultswithin the time period is included. Hemoglobin 12.6(L) 14.0 - 18.0 g/dL [facility] Hemoglobin x 3 37.8(L) 42.0 - 54.0 % [facility] 12/03/2024 12/04/2024 10: 44 AM CDT Narrative [facility] - 12/04/2024 Unless otherwise specified, test(s) performed at: [facility], [address] [place] [id number] GROUP SALES MANAGER: Jose Martin Mariscal M.D. For any questions, please call customer service at FREQUENCY:OTHER Resulting Agency Comment Specimen source: Blood us Yesi Madison MD LAB BLOOD ORDERABLES Final Re sult [facility] See order comments or contact performing lab Unknown, [place] * [facility] (11/27/2024) Only the most recent of6 resultswithin the time period is included. Potassium 4.1 3.5 - 5.1 mEq/L [facility] 11/27/2024 11/28/2024 10: 57 AM CDT [facility]ative [facility]28/[facility]24 Unless otherwise specified, test(s) performed at: [facility], [address] [place] [id number] GROUP SALES MANAGER: Jose Martin Mariscal M.D. For any questions, please call customer service at FREQUENCY:OTHER Resulting Agency Comment Specimen source: Serum us Yesi Madison MD LAB BLOOD ORDERABLES Final Re sult Performing Organization Address [facility] Co de Phone Number [facility] See order comments or contact performing lab Unknown, [place] * [facility] (11/19/2024) Only the most recent of4 resultswithin the time period is included. % Urea Reduction 74 65 - 80 % [facility] 11/19/2024 11/21/2024 10: 46 AM CDT Narrative [facility] - 11/21/2024 Unless otherwise specified, test(s) performed at: [facility], [address] [place] [id number] GROUP SALES MANAGER: Jose Martin Mariscal M.D. For any questions, please call customer service at FREQUENCY:MONTHLY Resulting Agency Comment Specimen source: Plasma us Yesi Madison MD LAB BLOOD ORDERABLES Final Re sult [facility] See order comments or contact performing lab Unknown, [place] * POST CHEMISTRY (11/19/2024) Only the most recent of4 resultswithin the time period is included. BUN Post Dialysis 11 6 - 19 mg/dL [facility] 11/19/2024 11/21/2024 10: 46 AM CDT Narrative [facility] - 11/21/2024 Unless otherwise specified, test(s) performed at: [facility], [address] [place] [id number] GROUP SALES MANAGER: Jose Martin Mariscal M.D. For any questions, please call customer service at FREQUENCY:MONTHLY Resulting Agency Comment Specimen source: Plasma Yesi Madison MD LAB BLOOD ORDERABLES Final Re sult [employer] [facility] See order comments or contact performing lab Unknown, [place] * [facility] Lab Results (11/19/2024) Only the most recent of4 resultswithin the time period is included. Pathologist [facility] eKt/V ([place]) 1.30 [facility] PCR 55.10 [facility] eKdrt/V 1.29 [facility] spKt/V (Daugirdas II) 1.49 [facility] WSTDKT/V 2.4 [facility] spKt/V Gotch 1.50 [facility] eNPCR 0.72 [facility] nPCR_HD 0.79 [facility] eKt/V Gotch 1.29 [facility] e Center 11/19/2024 11/19/2024 [facility] Ordering Provider LAB BLOOD ORDERABLES Final Result Performing Organization Address City/[facility]/ZIP Co de Phone Number [facility] Contact Performing lab Unknown, [place] * (ABNORMAL) THYROIDS (10/22/2024) Pathologist [facility] TSH 4.142(H) 0.300 - 3.000 mIU/L [facility] Comment: The reference range of 0.300-3.000 mIU/L is recommended by the [place] [employer]ocrinologists (AACE). An ESRD population contains about 20% of individuals with TSH of up to 20 mIU/L and normal free T4 consistent with non-thyroidal illness. ESRD patients with true hypothyroidism develop persistent values above 20 mIU/L. 10/22/2024 10/23/2024 1:1 0 PM CDT Narrative [facility] - 10/23/2024 Unless otherwise specified, test(s) performed at: [facility], [address] [place] [id number] GROUP SALES MANAGER: Jose Martin Mariscal M.D. For any questions, please call customer service at FREQUENCY:MONTHLY Resulting Agency Comment Specimen source: Serum us Yesi Madison MD LAB BLOOD ORDERABLES Final Re sult Performing Organization Address City/[facility]/ZIP Co de Phone Number [facility] See order comments or contact performing lab Unknown, [place] * SPECIAL CHEMISTRY (10/22/2024) Only the most recent of2 resultswithin the time period is included. Creatine Kinase (CK/CPK) 47 30 - 223 U/L [facility] 10/22/2024 10/23/2024 1:1 0 PM CDT Narrative Resulting Agency Comment Specimen source: Serum us Yesi Madison MD LAB BLOOD BANK TEST ORDERABLE S Final Result Performing Organization Address [facility] Co de Phone Number [facility] See order comments or contact performing lab Unknown, [place] from Last 3 Months Insurance [facility] Medicare Care Teams Welder Machine Operator Relationship Specialty Start Date End Date Kp Montanez DO [address] [place] [address] PCP - General Internal Medicine 01/07/23
--- OUTSIDE RECORDS SUMMARY | 2024-12-07 16:32 | XMS_ITS | Encounter Summary ---
Author Organization [facility] Address [address] [place] [address] Care Team Providers Care Conductor Road Freight Name Role Phone Dez Evans MD Primary Care Provider [phone] Reason for Visit * Reason Onset Date Comments Appointment Notification 09/24/2024 Encounter Details Date Type Department Care Team (Late st Contact Info) Description 09/24/2024 Telephone [facility] [address] [place] [address] Marla Rodriges FNP [address] [facility] [address] [place] [address] Appointment Notification Social History Tobacco Use Types Packs/Day Years Used Date Smoking Tobacco: Never Smokeless Tobacco: Never Alcohol Use Standard Drinks/Week Comments Not Currently 0 (1 standard drink = 0.6 oz pur e alcohol) rarely drinks since 2013 Sex and Gender Information Value Date Recorded Sex Assigned at Not on file Legal Sex Male 2:43 AM SEISMOGRAPH COMPUTER Gender Identity Not on file Sexual Orientation Not on file Occupation Industry Job Start Date Job End Date Not on file Not on file Not on file Not on file documented as of this encounter Miscellaneous Notes * Telephone Encounter - Carmen Sargent - 09/24/2024 10:35 AM CDT Provider: Antelmo MESSAGE Pt has an appt on 09/29/24 w / CODING ADVISOR Antelmo and he is needing to get this appt rescheduled, he has dialysis on that day, Saturday, Saturday or Saturday works the best, please advise. Carmen Sargent, [facility] Cardiology [facility] documented in this encounter Plan of Treatment Upcoming Encounters Date Type Department Care Team (Late st Contact Info) Description 02/12/2025 3:30 PM CDT Office Visit [facility] [place] [address] [place] [address] Shannan Goodwin MD [address] [place] [address] documented as of this encounter Visit Diagnoses Not on filedocumented in this encounter Additional Health Concerns Assessment Noted Time PHQ-9 Depression Total Score: 1 06/29/19 2:57 AM SEISMOGRAPH COMPUTER documented as of this encounter Care Teams Conductor Road Freight Relationship Specialty Start Date End Date Dez Evans MD [address] [place] [address] PCP - General Family Practice 06/18/24 documented as of this encounter
--- OUTSIDE RECORDS SUMMARY | 2024-12-07 16:32 | XMS_ITS | Encounter Summary ---
Author Organization [facility], [facility] Address [address] [facility] [address] [place] [address] Phone Care Team Providers Care Cook Camp Name Role Phone Kp Montanez DO Primary Care Provider [phone] Reason for Visit * Reason Comments Med Refill Encounter Details Date Type Department Care Team (Late st Contact Info) Description 03/07/[address] [facility] [address] [place] [address] Ghazal Schmitt, PIPE COVERER [address] [facility] [address] [place] [address] 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ilure (HCC) Social History Tobacco Use Types Packs/Day Years [...] as of this encounter Visit Diagnoses Diagnosis 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ilure (HCC) 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ilure documented in this encounter Care Teams Cook [place] Relationship Specialty Start Date End Date Kp Montanez DO [address] [place] [address] PCP - General Internal Medicine 01/07/23 documented as of this encounter
--- OUTSIDE RECORDS SUMMARY | 2024-12-07 16:32 | XMS_ITS | Clinical Summary ---
Author Organization [facility] Address [address] [place] [address] Care Team Providers Care Concert Manager Name Role Phone Kp Montanez Primary Care Provide r Allergies Active Allergy Reactions Criticality Noted Date Comments Hydrocodone-Acetaminophen Unknown 08/18/2012 Iodinated Contrast Media Hives High 08/18/2012 Iodine Hives High 08/18/2012 Ketorolac Hives High 08/18/2012 Metoclopramide Hcl Anxiety Low 07/07/2018 Nalbuphine Hives High 08/18/2012 Ondansetron Hcl Hives High 08/18/2012 Prochlorperazine Anxiety Low 10/19/2020 Ranolazine Shortness of Breath/Wheezing High 04/06/2018 Sulfa (Sulfonamide Antibiotics) Anaphylaxis High 08/18/2012 Medications aspirin (ARIANA) 81 mg Oral Tab Take 81 mg by mouth daily with breakfast. Active RELION CONFIRM-MICRO StripIndications :DM (diabetes mellitus), type 2, uncontrolled USE ONE STRIP THREE TIMES DAILY 100 Each 11 4 Active promethazine (PHENERGAN) 25 mg tablet TAKE ONE TABLET BY MOUTH EVERY 6 HOURS NEEDED FOR NAUSEA 30 Tab 0 4 Active furosemide (LASIX) 20 mg tabletIndication s:CHF (congestive heart failure), chronic, systolic (CMS/HCC),Left ventricular systolic dysfunction, NYHA class 2 Take 1 Tab (20 mg) by mouth daily. 10 Tab 1 5 Active Additional Information Patient taking differently: 40 mgOralTWO TIMES DAILY, Reported on 10/19/2020 clopidogrel (PLAVIX) 75 mg Tablet Take 1 Tab (75 mg) by mouth daily. 30 Tab 5 5 Active glipiZIDE (GLUCOTROL) 5 mg tablet TAKE ONE TABLET BY MOUTH TWICE DAILY WITH MEALS. 60 Tab 0 5 Active Additional Information Patient taking differently: 10 mg DAILY WITH BREAKFAST, TAKE ONE TABLET BY MOUTH TWICE DAILY WITH MEALS, Reported on 09/09/2018 traMADol (ULTRAM) 50 mg tablet Take 1 Tablet (50 mg) by mouth every 6 hours as needed for Pain. 15 Tablet 04/10/2018 11:19 AM SURGICAL ASSISTANT 8 Active nitroglycerin (NITROSTAT) 0.4 mg Tablet, Sublingual Place 1 Tablet (0.4 mg) under tongue every 5 minutes as needed for Chest Pain. 25 Tablet 2 9 Active amLODIPine (NORVASC) 5 mg tablet Take 1 Tablet (5 mg) by mouth daily. 30 Tablet 9 Active dulaglutide (TRULICITY) 0.75 mg/0.5 mL injection Inject 0.75 mg by subcutaneous injection. Active insulin lispro (HumaLOG) 100 unit/mL vialIndications: sliding scale Inject by subcutaneous injection. Sliding scale two times a day Active multivitamin (DAILY-HELEN) tabletIndication s:mens 50+ takes at night to avoid synthroid Take 1 Tablet by mouth daily. 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 Active metFORMIN (GLUCOPHAGE) 500 mg tablet Take 500 mg by mouth 2 times daily with meals. Active isosorbide mononitrate (IMDUR) 30 mg Extended Release 24 hour tablet Take 1 Tablet (30 mg) by mouth daily food service attendant. 30 Tablet 9 Active metoprolol tartrate (LOPRESSOR) 50 mg tablet Take 1 Tablet (50 mg) by mouth 2 times daily. 60 Tablet 9 Active atorvastatin (LIPITOR) 40 mg tablet TAKE 1 TABLET EVERY DAY WITH SUPPER 30 Tablet 5 9 Active apixaban (Eliquis) 2.5 mg tablet Take by mouth 2 times daily. Active POTASSIUM CHLORIDE ORAL Take by mouth. 1 tab in am and 1/2 tab at night unknown dose Active Active Problems Problem Noted Date Diagnosed Date Chest pain 12/28/2018 Non compliance w medication regimen 10/27/2018 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 ilure 09/06/2018 Type 2 diabetes mellitus wit h stage 3 chronic kidney disease, without long-term current use of insulin 09/06/2018 Normocytic anemia 09/06/2018 Essential hypertension 09/06/2018 History of coronary artery stent placement , [address] 04/04/2018 Depression 03/22/2014 Left ventricular systolic dysfunction, NYHA clas s 2 09/17/2013 Erectile dysfunction of organic origin 4 CKD (chronic kidney disease) stage 3, GFR 30-59 ml/min 07/02/2013 Combined hyperlipidemia 01/15/2013 History of bilateral fasciotomies - 2010 013 Foot drop, left 08/18/2012 Overview (08/18/2012): secondary to fasciotomy Atherosclerosis of [place] co ronary artery of [place] heart with stable angina pectoris 08/18/2012 DM (diabetes mellitus), type 2, uncontrolled 05/2012 Hypothyroidism 08/18/2012 Benign hypertension CKD (chronic kidney disease) stage 2, GFR 60-89 ml/min Resolved Problems Problem Noted Date Diagnosed Date Resolved Date Acute chest pain 09/06/2018 10/27/2018 Elevated troponin 09/06/2018 10/27/2018 Grade I diastolic dysfunction 07/06/2018 10/27/2018 Chest pain 04/04/2018 07/06/2018 CAD in [place] artery 07/02/2013 019 CHF (congestive heart failure) 08/18/2012 07/06/2018 Immunizations Immunization Administration Dates Next Due Influenza Vaccine Split 3+ Yrs IM 03/24/2013 Family History Medical History Relation Name Comments Asthma Daughter Heart Disease Father Hypertension Maternal Grandfather Hypertension Maternal Grandmother Asthma Mother Hypertension Mother Stroke Mother Heart Disease Paternal Cousin Heart Disease Paternal Grandfather Breast Cancer Paternal Grandmother Diabetes Paternal Grandmother Heart Disease Paternal Uncle Relation Name Status Comments Daughter Alive Father Alive Maternal Grandfather Maternal Grandmother Mother Paternal Cousin Paternal Grandfather Paternal Grandmother Paternal Uncle Social History Tobacco Use Types Packs/Day Years Used Date Smoking Tobacco: Never Smokeless Tobacco: Never Tobacco Cessation:Counseling Given: No Alcohol Use Standard Drinks/Week Comments Not Currently 0 (1 standard drink = 0.6 oz pur e alcohol) Sex and Gender Information Value Date Recorded Sex Assigned at Not on file Legal Sex Male 10:45 AM CDT Gender Identity Not on file Sexual Orientation Not on file Occupation Industry Job Start Date Job End Date Not on file Not on file Not on file Not on file Last Filed Vital Signs Vital Sign Reading Time Taken Comments Blood Pressure 121/63 10/23/2020 4:22 PM CDT Pulse 71 01/27/2019 10:57 AM CDT Temperature 36.2 C (97.2 F) 10/23/2020 4:22 PM CDT Respiratory Rate 16 10/23/2020 4:22 PM CDT Oxygen Saturation 96% 10/23/2020 4:22 PM CDT Inhaled Oxygen Concentration - - Weight 110.9 kg (244 lb 9.6 oz) 10/23/2020 3:26 PM CDT Height 167.6 cm (5' 6 ) 10/23/2020 3:26 PM CDT Body Mass Index 39.48 10/23/2020 3:26 PM CDT Plan of Treatment Health Maintenance Due Date Last Done Comments DIABETES ANNUAL FOOT EXAM 1986 DIABETES ANNUAL RETINAL EXAM 1986 DIABETES MICROALBUMIN ANNUAL SCREEN 1986 DTAP/TDAP/TD VACCINES (1 - Tdap) 1987 HEPATITIS B VACCINES (1 of 3 - 19+ 3-dose series) 1987 COLORECTAL SCREENING 2013 Colorectal Cancer Screening 2013 FIT-DNA Q 3 years 2013 FIT/FOBT Q 1 year 2013 Flex Sig/CT Colonography Q 5 years 2013 ZOSTER VACCINE (1 of 2) 2018 DIABETES HBA1C Q 6 MONTHS 11/23/20192019, 05/24/2019, 11/05/2014, Additional history exists LDL CHOLESTEROL ANNUAL 01/26/2020 9, 09/06/2018, 05/03/2014, Additional history exists INFLUENZA VACCINE (#1) 2024 8, 03/17/2014, 03/24/2013, Additional history exists Medical Devices Implanted Type Area Conference Center Coordinator Device Identifier Shelf Expiration Date Model / Serial / Lot Port-06/04/2018 Implanted:2018 (Quantity not on file) Port Procedures Procedure Name Priority Date/Time Associated Diagnosis Comments LIPID PANEL Routine 01/25/2019 2:00 AM CDT HEMOGLOBIN A1C Routine 05/03/2014 9:04 AM SURGICAL ASSISTANT DM (diabetes mellitus), type 2, uncontrolled HTN (hypertension), benign from Last 3 Months or Most Recently Relevant to Health Maintenance Results * (ABNORMAL) LIPID PANEL (01/25/2019 2:00 AM CDT) CHOLESTEROL 133 <200 mg/dL 01/25/2019 2:42 AM CDT [facility] TRIGLYCERIDE 177(H) <150 mg/dL 01/25/2019 2:42 AM CDT [facility] HDL 33(L) 40 - 59 mg/dL 01/25/2019 2:42 AM CDT [facility] LDL CALCULATED 65 <100 mg/dL 01/25/2019 2:42 AM CDT [facility] NON-HDL CHOLESTEROL 100 <130 mg/dL 01/25/2019 2:42 AM CDT [facility] Blood Venipuncture / Unknown 01/25/2019 2:00 AM CDT 01/25/2019 2:15 AM CDT Narrative [facility] - 01/25/2019 2:42 AM CDT TOTAL CHOLESTEROL mg/dL Desirable <200 Borderline high 200-239 High >=240 TRIGLYCERIDES mg/dL Normal <150 Borderline high 150-199 High 200-499 Very high >=500 HDL CHOLESTEROL mg/dL Low <40 Normal 40-59 Desirable >=60 NON HDL CHOLESTEROL mg/dL Optimal <130 Near Optimal 130-159 Borderline High 160-189 Very High >=190 Calculated LDL mg/dL Optimal <100 Near Optimal 100-129 Borderline High 130-159 High 160-189 Very High >=190 ATPIII Guidelines Reference Ranges for Lipid Panels (NCEP/AMA) us John Teixeira MD CHEMISTRY ORDERABLES Final Result [facility] CLIA# [id number] [address] [place] [address] * (ABNORMAL) HEMOGLOBIN A1C (05/03/2014 9:04 AM SURGICAL ASSISTANT) HEMOGLOBIN A1C 9.0(H) 4.0 - 6.0 % [facility] Comment: This test was performed on a TrunqShow VARIANT II instrument using HPLC methodology. Blood specimen (specimen) 05/03/2014 9:04 AM SURGICAL ASSISTANT 05/03/2014 9:05 AM SURGICAL ASSISTANT us Nicolasa Acosta BLEACH MIXER CHEMISTRY ORDERABLES Final R esult INTERFACE SYSTEM Refer to clinic/hospital department [facility] CLIA# [id number] [address] [place] [address] from Last 3 Months or Most Recently Relevant to Health Maintenance Insurance [place] [address] [place] [address] DUAL COMPLETE [facility] PPO D-SNP RX [employer] PLANS (INTERNAL) [facility] Internal Plans RX [employer] RX Member Subscriber Plan / Payer (Ef fective for All Dates) Name:Rei Queen II Relation to Subscriber:Self Name:Rei Queen II Payer ID:Not on file Group ID:[id number] Type:RX Medicare Part D Address: [address] Advance Directives For more information, please contact: [phone] * Full Code (Latest Code Status on File) Date Activated Date Inactivated Comments 01/26/2019 2:13 PM 01/27/2019 5:51 PM * Full Code Date Activated Date Inactivated Comments 01/25/2019 12:27 AM 01/26/2019 2:13 PM * Full Code Date Activated Date Inactivated Comments 12/28/2018 6:19 PM 12/30/2018 12:57 PM * Full Code Date Activated Date Inactivated Comments 09/06/2018 5:34 AM 09/08/2018 6:24 PM * Full Code Date Activated Date Inactivated Comments 04/04/2018 9:34 PM 04/10/2018 3:22 PM Care Teams Concert Manager Relationship Specialty Start Date End Date Kp Montanez DO [address] [address] PCP - General Internal Medicine 04/04/18
--- OUTSIDE RECORDS SUMMARY | 2024-12-07 16:32 | XMS_ITS | Encounter Summary ---
Author Organization [facility], [facility] Address [address] [place] [address] Phone Care Team Providers Care Train Crew Member Name Role Phone Kp Montanez DO Primary Care Provider [phone] Encounter Details Date Type Department Care Team (Late st Contact Info) Description 12/03/2024 Orders Only [facility] [address] [place] [address] Yesi Madison MD [address] [place] [address] Social History Tobacco Use Types [...] on file documented as of this encounter Procedures Procedure Name Priority Date/Time Associated Diagnosis Comments HEMATOLOGY Routine 12/03/2024 documented in this encounter Results * (ABNORMAL) HEMATOLOGY (12/03/2024) Hemoglobin 12.6(L) 14.0 - 18.0 g/dL [facility] Hemoglobin x 3 37.8(L) 42.0 - 54.0 % [facility] 12/03/2024 12/04/2024 10: 44 AM CDT Narrative [facility] - 12/04/2024 Unless otherwise specified, test(s) performed at: [facility], [address] [place] [id number] [place] ATTENDANT: Jose Martin Mariscal M.D. For any questions, please call customer service at [facility]:OTHER Resulting Agency Comment Specimen source: Blood us Yesi Madison MD LAB BLOOD ORDERABLES Final Re sult [facility] See order comments or contact performing lab Unknown, [place] documented in this encounter Visit Diagnoses Not on filedocumented in this encounter Care Teams Train Crew Member Relationship Specialty Start Date End Date Kp Montanez DO [address] [place] [address] PCP - General Internal Medicine 01/07/23 documented as of this encounter
--- OUTSIDE RECORDS SUMMARY | 2024-12-07 16:32 | XMS_ITS | Clinical Summary ---
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 Name Role Phone Dez Evans MD Primary Care Provider [phone] Allergies Active Allergy Reactions Criticality Noted Date Comments Codeine Hives High 04/10/2013 Haloperidol Lactate Other (See Comments) 2023 Agitation Iodinated Contrast Media Hives,Other (Se e Comments) High 08/18/2012 Iodine Hives High 08/18/2012 Ketorolac Hives High 08/18/2012 Metoclopramide Anxiety,Other (See Comments) High 04/10/2013 Increases Breathing Metoclopramide Hcl Anxiety Low 07/07/2018 Nalbuphine Hives High 08/18/2012 Ondansetron Hcl Hives High 08/18/2012 Ondansetron Hcl (Pf) Hives High 04/10/2013 Prochlorperazine Anxiety Low 10/19/2020 Previously tolerated per pt. Ranolazine Shortness of Breath/Wheezing High 04/06/2018 Sulfa (Sulfonamide Antibiotics) Anaphylaxis High 08/18/2012 Medications nitroglycerin (NITROSTAT) 0.4 mg Tablet, Sublingual Place 0.4 mg under tongue every [address] 0.4 mg under tongue every 5 minutes as needed. 3 Active promethazine (PHENERGAN) 25 mg tablet Take 25 mg by mouth every 6 hours as needed. Take 1 Tab by mouth every 6 hours as needed for Nausea. 3 Active insulin lispro (HumaLOG) 100 unit/mL vial Inject by subcutaneous injection 2 times daily as needed for Blood Sugar. 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 9 Active atorvastatin (LIPITOR) 40 mg tablet TAKE 1 TABLET EVERY DAY WITH SUPPER 30 Tablet 5 9 Active insulin degludec (Tresiba FlexTouch U-200) 200 unit/mL pen syringe Inject 40 Units by subcutaneous injection daily with breakfast. Active gabapentin (NEURONTIN) 300 mg capsule Take 300 mg by mouth 2 times daily. 1 Active LORazepam (ATIVAN) 1 mg tablet Take 1 mg by mouth every 8 hours. Active RenaPlex-D 800 mcg-12.5 mg -2,000 unit Tablet Take 1 Tablet by mouth late in the day. 3 Active apixaban (ELIQUIS) 2.5 mg tablet Take 1 Tablet (2.5 mg) by mouth 2 times daily. 1 Tablet 3 Active clopidogreL (PLAVIX) 75 mg Tablet Take 1 Tablet (75 mg) by mouth daily. 60 Tablet 6 3 Active docusate sodium (COLACE) 50 mg capsule Take by mouth 2 times daily. 2 Active bumetanide (BUMEX) 2 mg tablet Take 1 Tablet by mouth daily. 3 Active Procto-Med HC 2.5 % cream with perineal applicator APPLY THIN LAYER TO AFFECTED AREA TWO TO FOUR TIMES A DAY 4 Active BD Ultra-Fine Short Pen Needle 31 gauge x 5/16 Needle USE THREE TIMES DAILY 4 Active busPIRone (BUSPAR) 10 mg tablet Take 10 mg by mouth 2 times daily. Active tamsulosin (FLOMAX) 0.4 mg capsule Take 0.4 mg by mouth daily in the morning. 4 Active traZODone (DESYREL) 100 mg tablet Take 200 mg by mouth daily at bedtime. 4 Active Mounjaro 15 mg/0.5 mL Pen Injector Inject 15 mg by subcutaneous injection every 7 days. Every Saturday 4 Active FLUoxetine (PROzac) 40 mg capsule Take 40 mg by mouth daily in the morning. 4 Active buPROPion HCL (WELLBUTRIN XL) 300 mg Extended Release 24 hour tablet Take 300 mg by mouth daily in the morning. 4 Active sevelamer carbonate (RENVELA) 800 mg Tablet Take 800 mg by mouth 3 times daily with meals. 5 05/25/19 26 Active pantoprazole (PROTONIX) 40 mg Tablet, Delayed Release (E.C.) Take 1 Tablet by mouth daily. 4 Active hydrOXYzine HCL (ATARAX) 50 mg tablet Take 50 mg by mouth nightly as needed for Insomnia or Anxiety. 4 Active Dexcom G7 Sensor Device 1 Each by See Admin Instructions route 1 time daily as needed for Other (See Comment) (monitor blood sugar). 4 Active naloxone (NARCAN) 4 mg/spray Hannah, Non-Aerosol EMERGENCY USE ONLY: Administer 1 spray (4 mg) in one nostril one time. May repeat in alternating nostrils every 2-3 min until responsive or EMS arrives. 2 Each 3 5 Active sacubitriL-vals tommy (ENTRESTO) 24-26 mg Tablet Take 1 Tablet by mouth daily. 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 30 Tablet 07/03/2024 4:14 PM INDUSTRIAL CHEMISTRY TEACHER 5 Active isosorbide mononitrate (IMDUR) 60 mg Extended Release 24 hour tablet Take 1 Tablet (60 mg) by mouth daily in the morning. 30 Tablet 07/03/2024 4:14 PM INDUSTRIAL CHEMISTRY TEACHER 5 Active HYDROcodone-fede taminophen (NORCO) 5-325 mg tabletIndicatio ns:Complication from renal dialysis device, initial encounter Take 1 Tablet by mouth every 6 hours. Max Daily Amount: 4 Tablets 20 Tablet 5 Active Banophen 25 mg tablet TAKE TWO TABLETS BY MOUTH ONE hour before contrast media injection 5 Active ALLERGY RELIEF 180 mg tablet Take 1 Tablet by mouth daily. Active methoxy peg-epoetin beta (MIRCERA INJECTION) 30 mcg. 5 09/15/19 Active midodrine HCl (MIDODRINE ORAL) Take 5 mg by mouth. 5 08/08/19 Active minocycline (MINOCIN) 100 mg capsule TAKE 2 CAPSULES BY MOUTH at ONCE THEN ONE TWICE DAILY Active mupirocin (BACTROBAN) 2 % Ointment apply topically twice daily Active predniSONE (DELTASONE) 50 mg tablet Active ranolazine (RANEXA) 1,000 mg Extended Release 12 hour tablet Take 1 Tablet by mouth 2 times daily. Active tiZANidine (ZANAFLEX) 2 mg Tablet Take 1 Tablet by mouth 2 times daily. Active Active Problems Problem Noted Date Diagnosed Date Mood disorder 09/20/2024 Obesity 09/20/2024 Anemia of chronic disease 09/20/2024 Obesity (BMI 30.0-34.9) 09/20/2024 Vascular graft occlusion 09/19/2024 AV fistula occlusion 09/19/2024 ICD (implantable cardioverte r-defibrillator) in place - Biotronik 08/24/2024 VT (ventricular tachycardia) 07/21/2024 Cardiomyopathy 07/21/2024 Precordial pain 07/16/2024 Heart palpitations 07/16/2024 HFrEF (heart failure with reduced ejection fract ion) 06/29/2024 Benign hypertension with ESRD (end-stage renal d isease) 06/29/2024 Hypoxia 06/28/2024 S/P coronary angiogram 06/20/2024 Chronic anemia 06/19/2024 ESRD (end stage renal disease) 06/19/2024 PAM (obstructive sleep apnea) 06/19/2024 GERD (gastroesophageal reflux disease) Insulin dependent type 2 diabetes mellitus 06/19 Chronic HFrEF (heart failure with reduced ejection fraction) 06/19/2024 NSTEMI (non-ST elevated myocardial infarction) 0 06/18/2024 Unstable angina 06/18/2024 Obesity, morbid 08/13/2023 Syncope 05/04/2023 Elevated troponin 05/02/2023 Atypical chest pain 05/02/2023 Complication of arteriovenous dialysis fistula 0 12/18/2022 Acquired coagulation factor deficiency Deep vein thrombosis of lower extremity 08/23/19 Obesity with body mass index 30 or greater 08/22 Hypertensive heart and renal disease with (congestive) heart failure 08/22/2022 Protein-calorie malnutrition 06/11/2022 Allergy, unspecified, subsequent encounter 06/01 Dependence on renal dialysis 06/01/2022 Type 2 diabetes mellitus wit h diabetic neuropathy, unspecified 06/01/2022 Hypertensive heart and chron ic kidney disease with heart failure and with stage 5 chronic kidney disease, or end stage renal disease 06/01/2022 Hypotension of hemodialysis 06/01/2022 Iron deficiency anemia, unspecified 06/01/2022 Ischemic cardiomyopathy 06/01/2022 Long-term (current) use of i njectable non-insulin antidiabetic drugs 06/01/2022 Old myocardial infarction 06/01/2022 Pain, unspecified 06/01/2022 Secondary hyperparathyroidism of renal origin Type 2 diabetes mellitus with chronic kidney dis ease 06/01/2022 Anemia in chronic kidney disease 06/01/2022 Vitamin D deficiency 03/01/2022 Inguinal hernia without obstruction or gangrene 10/10/2021 Overview (10/17/2022): Added automatically from request for surgery [id number] Scrotal pain 02/07/2021 Adenoma of both adrenal glands 05/24/2019 Overview (10/17/2022): Seen on CT abd at [facility] 10/[address] abd at [facility] 10/2018 Diverticulosis 05/24/2019 History of pulmonary embolism 05/24/2019 Type 2 diabetes mellitus 05/24/2019 Hyperlipidemia associated with type 2 diabetes m ellitus 05/24/2019 Hypertension complicating diabetes 05/24/2019 Chronic chest pain 12/28/2018 Non compliance w medication regimen 10/27/2018 Essential hypertension 09/06/2018 Diabetic nephropathy associa christie with type 2 diabetes mellitus 06/26/2018 Stage 4 chronic kidney disease 06/26/2018 Overview (10/17/2022): Update for Diagnosis Load Update for Diagnosis Load History of coronary artery stent placement , [address] 04/04/2018 Depression 03/22/2014 Chronic combined systolic an d diastolic CHF (congestive heart failure) 03/16/2014 Left ventricular systolic dysfunction, NYHA clas s 2 09/17/2013 Erectile dysfunction of organic origin 4 CAD (coronary artery disease) 04/11/2013 History of bilateral fasciotomies - 2010 013 Foot drop, left 08/18/2012 Overview (11/24/2020): secondary to fasciotomy Atherosclerosis of [place] co ronary artery of [place] heart with stable angina pectoris 08/18/2012 DM (diabetes mellitus), type 2, uncontrolled 05/2012 Acquired hypothyroidism 08/18/2012 Resolved Problems Problem Noted Date Diagnosed Date Resolved Date Advanced care planning/counseling discussion 5 06/30/2024 Right lower lobe pneumonia 05/24/2019 0 07/03/2024 CKD (chronic kidney disease) stage 3, GFR 30-59 ml/min 07/02/2013 10/17/2022 JESUS (acute kidney injury) 04/15/2013 Acute CHF 04/11/2013 10/17/2022 JESUS (acute kidney injury) 04/11/2013 CKD (chronic kidney disease) stage 2, GFR 60-89 ml/min 10/17/2022 Encounters Date Type Department Care Team Description 12/04/2024 Telephone [facility] Vascular Surgery [place] [address] [place] [address] Shannan Goodwin MD Question 11/13/2024 3:30 PM CDT Office Visit [facility] Vascular Surgery [place] [address] [place] [address] Shannan Goodwin MD ESRD (end stage renal disease) ([facility]) (Primary Dx); AV graft stenosis, subsequent encounter 11/09/2024 Telephone [place] [id number] [facility] [address] [place] [address] Stephani Keen MD Severe pain in right arm/shoulder 11/03/2024 11:02 AM CDT - 11/03/2024 11:59 PM CDT Hospital Encounter [facility] Interventional Radiology [address] [phone] Yesi Madison MD Birlew, Ryan Avery, MD Discharge Disposition: Home or Self Care 11/02/2024 Telephone [facility] Interventional Radiology [address] [address] Sabra Barr RN Procedure (Instructed patient for scheduled procedure with sedation on 11/03/24. Check at the [facility] entrance at 1230. Instructed they need to have a straight truck driver and someone to stay with them for the next 24 hours. We only allow 1 person to come to the prep and recovery area. Plan on being with us for 3-4 hours. Pt reports will take premeds 13 hours before, 7 hour before, and 1 hour before procedure Nothing to eat or drink after midnight. Informed it's ok take your morning medications with a small sip of water. /) 11/02/2024 Telephone [facility] [address] [facility] [address] [place] [address] Stephani Keen MD PT needs to cancel Pacemaker appointment 11/02/2024 Telephone [facility] Vascular Surgery [place] [address] [place] [address] Shannan Goodwin MD Appointment Notification 10/30/2024 12:51 PM CDT - 10/30/2024 11:59 PM CDT Hospital Encounter [facility] Dialysis [address] [phone] Discharge Disposition: Home or Self Care 10/30/2024 11:30 AM CDT - 10/30/2024 11:59 PM CDT Hospital Encounter [facility] Interventional Radiology [address] [address] [place] [phone] Yesi Madison MD Birlew, Ryan Avery, MD Discharge Disposition: Home or Self Care 10/28/2024 Telephone [facility] Vascular Surgery [address] [place] [phone] Shannan Goodwin MD Appointment Verification 10/27/2024 [facility] Vascular Surgery [address] [phone] Shannan Goodwin MD Question 10/20/2024 External Device Data STL ABSTRACTION Provider, Abstract 10/19/2024 Telephone [facility] [phone] Shannan Goodwin MD Information 09/28/2024 [facility] Vascular Surgery [address] [phone] Shannan Goodwin MD Needs Appointment 09/24/2024 [place] [id number] [facility] [address] [place] [phone] Marla Rodriges FNP Appointment Notification 09/22/2024 External Device Data STL ABSTRACTION Provider, Abstract 09/19/2024 2:43 PM CDT - 09/24/2024 4:56 PM CDT Hospital Encounter [address] [facility] [address] [place] [phone] Lucia Hernandez DO Abbas, Muhammad Khalid, MD Bandaru, Kiran Babu, MD Neupane, Gagan, MD AV fistula occlusion Discharge Disposition: Home or Self Care 09/19/2024 10:47 AM CDT - 09/19/2024 1:03 PM CDT Emergency [facility] Emergency Medicine [address] [place] [phone] Joesph Larios MD Vascular graft occlusion, initial encounter (Primary Dx) Discharge Disposition: Home or Self Care 09/19/2024 12:15 AM CDT - 09/19/2024 11:59 PM CDT Hospital Encounter [facility] Emergency Medical Services [address] [place] [address] Ambulance, [facility] Discharge Disposition: [facility] 09/19/2024 Travel 09/11/2024 Telephone [facility] Vascular Surgery [place] [address] [place] [address] Pat Archibald FNP Question from Last 3 Months Immunizations Immunization Administration Dates Next Due (ADACEL/BOOSTRIX)(10 YR UP) TDAP VACCINE, 0.5ML, IM 05/30/2021 (HEPLISAV-B)(18 YR UP) HEPAT ITIS B VACCINE CPG-ADJUVANTED (HEPB-CPG) 2-4 DOSE, IM 10/30/2022,08/25/2022,07/21/2022,06/23 (PNEUMOVAX 23)(50 YRS UP) PN EUMOCOCCAL POLYSACCHARIDE (PPV23) 0.5 ML, IM 09/18/2022,05/25/2019 (PREVNAR 20)(6 WKS UP) PNEUM OCOCCAL CONJUGATE VACCINE 20-VALENT (PCV20), POLYSACCHARIDE [id number] CONJUGATE, ADJUVANT 0.5 ML (PF) IM 06/26/2022 (SHINGRIX)(50 YRS UP) ZOSTER VACCINE RECOMBINANT, 0.5 ML, IM 08/10/2020,06/06/2020 INFLUENZA VACCINE QUADRIVALE NT 3 YR UP PF IM 03/17/2014 INFLUENZA VACCINE QUADRIVALE NT 6 MOS UP PF IM 06/14/2022,06/06/2020,03/12/2019,03/16 Influenza Seasonal Unspecifi ed Formulation IM 03/01/2021,06/06/2020,03/17/2014,03/16,03/10/2013 Influenza Vaccine High Dose 65+ Yrs IM 8 Influenza Vaccine Split 3+ Yrs IM 03/24/2013 Influenza Vaccine Tri Rcmb 18+ PF IM 03/05/2024 Influenza, Unspecified Formulation 03/05/2024 Pneumococcal conjugate, unsp ecified formulation 04/10/2011 Td(adult) Unspecified Formulation 05/30/2021 Family History Medical History Relation Name Comments Asthma Daughter Heart Disease Father High Cholesterol Father Hypertension Maternal Grandfather Hypertension Maternal Grandmother Asthma Mother Depression Mother Hypertension Mother Respiratory Disease Mother Stroke Mother Heart Disease Paternal Cousin Heart Disease Paternal Grandfather Breast Cancer Paternal Grandmother Diabetes Paternal Grandmother Heart Disease Paternal Uncle Relation Name Status Comments Daughter Alive Father Alive Maternal Grandfather Maternal Grandmother Mother Paternal Cousin Paternal Grandfather Paternal Grandmother Paternal Uncle Social History Tobacco Use Types Packs/Day Years Used Date Smoking Tobacco: Never Smokeless Tobacco: Never Tobacco Cessation:Counseling Given: Not Answered Alcohol Use Standard Drinks/Week Comments Not Currently 0 (1 standard drink = 0.6 oz pur e alcohol) rarely drinks since 2013 Sex and Gender Information Value Date Recorded Sex Assigned at Not on file Legal Sex 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 Gender Identity Not on file Sexual Orientation Not on file Occupation Industry Job Start Date Job End Date Not on file Not on file Not on file Not on file Last Filed Vital Signs Vital Sign Reading Time Taken Comments Blood Pressure 118/68 11/13/2024 3:25 PM CDT Pulse 72 11/13/2024 3:25 PM CDT Temperature 36.3 C (97.3 F) 11/03/2024 1:50 PM CDT Respiratory Rate 13 11/03/2024 1:50 PM CDT Oxygen Saturation 95% 11/13/2024 3:25 PM CDT Inhaled Oxygen Concentration - - Weight 92.1 kg (203 lb) 11/13/2024 3:25 PM CDT Height 165.1 cm (5' 5 ) 11/13/2024 3:25 PM CDT Body Mass Index 33.78 11/13/2024 3:25 PM CDT Plan of Treatment Upcoming Encounters Date Type Department Care Team (Late st Contact Info) Description 02/12/2025 3:30 PM CDT Office Visit [facility] Vascular Surgery [place] [address] [facility] [address] [place] [phone] Shannan Goodwin MD [address] [facility] [address] [place] [address] Health Maintenance Due Date Last Done Comments DIABETES ANNUAL FOOT EXAM 1986 DIABETES ANNUAL RETINAL EXAM 1986 DIABETES MICROALBUMIN ANNUAL SCREEN 1986 COLORECTAL SCREENING 2013 Colorectal Cancer Screening 2013 FIT-DNA Q 3 years 2013 FIT/FOBT Q 1 year 2013 Flex Sig/CT Colonography Q 5 years 2013 HEPATITIS B VACCINES (5 of 5 - Risk Dialysis Recombivax 3-dose series) 10/31/2023 10/30/2022, 08/25/2022, 07/21/2022, Additional history exists COVID-19 Vaccine (3 - 2023-2 5 season) 2024 11/05/2020, 10/08/2020 LDL CHOLESTEROL ANNUAL 05/02/2024 3, 01/25/2019, 09/06/2018, Additional history exists INFLUENZA VACCINE (#1) 2024 4, 06/14/2022, 03/01/2021, Additional history exists DIABETES HBA1C Q 6 MONTHS 04/23/20252024, 06/27/2024, 05/02/2023, Additional history exists DTAP/TDAP/TD VACCINES (2 - T d or Tdap) 05/30/2031 05/30/2021, 05/30/2021 ZOSTER VACCINE Completed 08/10/2020, 06/06/2020 Medical Devices Implanted Type Area Power Plant Electrician Device Identifier Shelf Expiration Date Model / Serial / Lot Clip Ligating Horizon Red [id number] - Csc - [id number] Implanted:Qty : 1 on 09/28/2022 by Guero Felder MD at [facility] Clip Left: Arm TELEFLEX INC [id number] 12/25/2026 [id number] / / [id number] Clip Ligating Horizon Med Ti 113637 - Csc - [id number] Implanted:Qty : 1 on 09/28/2022 by Guero Felder MD at [facility] Clip Left: Arm TELEFLEX- WECK CLOSURE SYS [id number] 10/08/2026 [id number] / / [id number] Clip Ligating Horizon Red [id number] - [facility] [place] [id number] Implanted:Qty : 1 on 11/14/2022 by iJmmy Anaya MD at [facility] Clip Left: Arm TELEFLEX INC [id number] 12/25/2026 [id number] / / [id number] Clip Ligating Horizon Med Ti 038858 - [facility] [place] [id number] Implanted:Qty : 1 on 11/14/2022 by Jimmy Anaya MD at [facility] Clip Left: Arm TELEFLEX- WECK CLOSURE SYS [id number] 02/12/2027 / / [id number] Closure Perclose Prostyle Sut Mediate 18499-42 - [id number] Implanted:Qty : 1 on 05/03/2023 by Jay Bales MD at [facility] Closure Device Right: Groin SALAS- VASC DEVICE 01/17/2025 [id number] / / [id number] Dev Closure Angioseal 6fr Vip 024648 - [id number] Implanted:Qty : 1 on 05/03/2023 by Jay Bales MD at [facility] Closure Device Right: Groin [facility] 10/11/2023 [id number] / / [id number] Dev Closure Angioseal 6fr Vip 945737 - [id number] Implanted:Qty : 1 on 06/19/2024 by Prince Barfield MD at [facility] Closure Device Right: Groin TERUMO- CARDIOVASC SYS 01/13/2025 [id number] / / [id number] Dev Icd Acticor 7 Vr-T Dx Df4 Hybrid [id number] - [id number] Implanted:Qty : 1 on 07/23/2024 by Stephani Keen MD at [facility] Defibrillator Right: Chest Wall BI[employer]RONIK INC [id number] 05/19/2026 [id number] / [id number] / Graft Vasc Propaten 4-3lhi32fr [id number] - [id number] Implanted:Qty : 1 on 09/28/2022 by Guero Felder MD at [facility] Graft Left: Arm [employer] INC [id number] 04/02/2026 [id number] / [id number] 2026-03 Hemostatic Surgicel 1x2in 1960 - [id number] Implanted:Qty : 1 on 09/28/2022 by Guero Felder MD at [facility] Hemostatic Left: Arm J&J- [employer] INC [id number] 02/16/20251960 / / [id number] Hemostatic Surgicel 1x2in 1960 - [id number] Implanted:Qty : 1 on 09/28/2022 by Guero Felder MD at [facility] Hemostatic Left: Arm J&J- [employer] INC [id number] 12/17/20241960 / / [id number] Lead Endocardial Pamira S Dx 65/15 Rv W Atr Sensing [id number] - [id number] Implanted:Qty : 1 on 07/23/2024 by Stephani Keen MD at [facility] Lead Right: Chest Wall BIOT[employer] INC [id number] 05/19/2026 [id number] / [id number] / Power Port Implanted:(Qu antity not on file) Explanted:(Qu antity not on file) Port Port- 9 Implanted: (Quantity not on file) Port Suture Perchik 2 Button Pouch [id number] - [id number] Implanted:Qty : 1 on 08/23/2023 at [facility] Screw [employer]GI[employer] INC [id number] / / Description:This is Not an I mplant Stent Implanted:(Qu antity not on file) Explanted:(Qu antity not on file) Stent Stent Synergy Xd 3.5x16mm Evrlms Elut [id number] - [id number] Implanted:Qty : 1 on 05/03/2023 by Jay Bales MD at [facility] Stent Left: Coronary Proximus PATRICK 01/01/2025 [id number] / / [id number] Stent Viabahn Hep 8mmx7.5xcm [id number] - [id number] Implanted:Qty : 1 on 10/23/2023 by Jimmy Anaya MD at [facility] Stent Left: Arm [employer] [id number] 12/23/2025 [id number] / [id number] / Procedures Procedure Name Priority Date/Time Associated Diagnosis Comments IR FISTULOGRAM Routine 11/03/2024 1:16 PM CDT ESRD (end stage renal disease) ([facility]) TELEMETRY REPORT 09/25/2024 2:39 AM CDT POC GLUCOSE Routine 09/24/2024 12:46 PM CDT POC GLUCOSE Routine 09/24/2024 7:59 AM CDT HEMODIALYSIS Routine 09/24/2024 7:53 AM CDT CBC WITH DIFFERENTIAL Routine 09/24/2024 1:23 AM CDT BASIC METABOLIC PANEL Routine 09/24/2024 1:23 AM CDT POC GLUCOSE Routine 09/23/2024 10:13 PM CDT POC GLUCOSE Routine 09/23/2024 5:11 PM CDT TROPONIN Stat 09/23/2024 3:22 PM CDT EKG 12-LEAD Pending Discharge 09/23/2024 3:20 PM CDT PT EVAL AND TREAT Pending Discharge 09/23/2024 2:56 PM CDT OT EVAL AND TREAT Pending Discharge 09/23/2024 2:56 PM CDT TELEMETRY REPORT 09/23/2024 2:13 PM CDT POC GLUCOSE Routine 09/23/2024 11:24 AM CDT POC GLUCOSE Routine 09/23/2024 6:55 AM CDT CBC WITH DIFFERENTIAL Routine 09/23/2024 4:35 AM CDT BASIC METABOLIC PANEL Routine 09/23/2024 4:35 AM CDT POC GLUCOSE Routine 09/22/2024 9:40 PM CDT POC GLUCOSE Routine 09/22/2024 4:37 PM CDT HEMODIALYSIS Routine 09/22/2024 12:36 PM CDT POC GLUCOSE Routine 09/22/2024 6:50 AM CDT CBC WITH DIFFERENTIAL Routine 09/22/2024 2:01 AM CDT BASIC METABOLIC PANEL Routine 09/22/2024 2:01 AM CDT POC GLUCOSE Routine 09/21/2024 9:24 PM CDT POC GLUCOSE Routine 09/21/2024 5:13 PM CDT HEMODIALYSIS Routine 09/21/2024 4:14 PM CDT IR FISTULOGRAM Routine 09/21/2024 3:49 PM CDT POC GLUCOSE Routine 09/21/2024 11:19 AM CDT BASIC METABOLIC PANEL Routine 09/21/2024 8:35 AM CDT POC GLUCOSE Routine 09/21/2024 6:50 AM CDT POC GLUCOSE Routine 09/20/2024 5:05 PM CDT POC GLUCOSE Routine 09/20/2024 11:36 AM CDT BASIC METABOLIC PANEL Routine 09/20/2024 12:57 AM CDT CBC WITH DIFFERENTIAL Routine 09/20/2024 12:57 AM CDT US DUPLEX ARTERIAL ARM LEFT Stat 09/19/2024 3:26 PM CDT TYPE AND SCREEN Stat 09/19/2024 3:11 PM CDT PROTIME-INR Stat 09/19/2024 3:11 PM CDT MAGNESIUM LEVEL Stat 09/19/2024 11:29 AM CDT C-REACTIVE PROTEIN Stat 09/19/2024 11 :29 AM CDT BRAIN NATRIURETIC PEPTIDE, BNP OR PROBNP Stat 09/19/2024 11:29 AM CDT COMPREHENSIVE METABOLIC PANEL Stat 09/19/2024 11:29 AM CDT PTT Stat 09/19/2024 11:29 AM CDT PROTIME-INR Stat 09/19/2024 11:29 AM CDT D-DIMER Stat 09/19/2024 11:29 AM CDT CBC WITH DIFFERENTIAL Stat 09/19/2024 11:29 AM CDT HEMOGLOBIN A1C Routine 06/27/2024 5:39 AM INDUSTRIAL CHEMISTRY TEACHER LIPID PANEL Routine 05/02/2023 9:36 PM INDUSTRIAL CHEMISTRY TEACHER from Last 3 Months or Most Recently Relevant to Health Maintenance Results * IR FISTULOGRAM (11/03/2024 1:16 PM CDT) Only the most recent of2 resultswithin the time period is included. Anatomical Region Laterality Modality X-Ray Angiograph y 11/03/2024 1:16 PM CDT Impressions 11/03/2024 4:47 PM CDT IMPRESSION: Please see below. Exam: IR FISTULOGRAM 1. Ultrasound-guided antegrade micropuncture access of the left brachial artery to brachial vein arteriovenous graft 2. Central venogram including the left subclavian vein, left brachial cephalic vein, and superior vena cava 3. Left arm angiogram of the arterial venous graft 5. Percutaneous transluminal angioplasty of recurrent moderate (60-70%) stenosis of the central portion of the graft body with 8 mm balloon followed treatment with an 8 mm Lutonix drug coated balloon 6. Reflux angiogram across the arterial anastomosis 7. Ultrasound guided retrograde micropuncture access of the left brachial artery to brachial vein arteriovenous graft 8. Brachial arteriogram with evaluation of the arterial anastomosis 9. Percutaneous transluminal angioplasty of moderate stenosis of the arterial anastomosis (50%) with 6 mm balloon 10. Completion left brachial arteriogram with evaluation of the graft and graft outflow Date/Time of Exam: 11/03/2024 1:16 PM REASON FOR EXAM: Difficult cannulation of the graft with decreased flows.. DIAGNOSIS: ESRD (end stage renal disease) ([facility]). Medications: Fentanyl and versed were titrated to effect. Moderate (conscious) sedation for this procedure was performed with continuous physician supervision. Medical history, physical exam, drug dosages, routes of drug administration, monitoring data, and precise times of service are documented in the medical record on the [facility]-approved form, 'Sedative/Analgesic Administration for Diagnostic and Therapeutic Procedures'. Please see nursing flow sheets for dosage and time. Sedation was administered by a trained independent observer. I personally supervised 45 minutes of sedation. Contrast: 40 mL Isovue-300 Fluoroscopy time: 2.4 minutes Estimated Blood Loss: Minimal Complications:None Implantable Devices: None Procedure: After informed consent was obtained from the patient, the patient was taken to the angiography suite and placed supine on the angiography table. The patient's left arm was prepped and draped in sterile fashion. A timeout was performed. The graft was evaluated with ultrasound. The skin overlying the peripheral aspect of the graft was anesthetized with lidocaine. Under direct ultrasound guidance, antegrade micropuncture access was obtained. An angiogram was performed and carried out centrally. A 0.035 inch Glidewire was advanced and the transitional dilator was exchanged for a 6 Malagasy vascular sheath. Angioplasty of recurrent moderate stenosis in the central arteriovenous graft body was performed with 8 mm angioplasty followed by 8mm tonics balloon. The balloon was left inflated for three minutes. Some milder stenosis within the graft was then treated with 8 mm angioplasty as well. Reflux angiogram during the angioplasty revealed that there was some moderate stenosis at the arterial anastomosis. The antegrade sheath was removed and hemostasis was achieved with pursestring button suture technique. Attention was then turned to the arterial side of the graft. The skin overlying the central graft body was anesthetized with lidocaine. Under direct ultrasound guidance, micropuncture access was obtained and exchanged for a 6 Malagasy sheath. A Glidewire was advanced retrograde into the brachial artery. Angioplasty of the arterial anastomotic stenosis was performed with a 6 mm balloon. A subsequent brachial arteriogram revealed no significant residual stenosis. The sheath was removed and hemostasis was achieved with pursestring but in suture technique. Sterile bandages were applied. The patient was injured recently in good condition with an improved thrill. Findings: 1. Ultrasound-guided antegrade micropuncture access of the left brachial artery to brachial vein arteriovenous graft demonstrates graft patency. Needle entry was documented and sent to PACS. 2. Central venogram including the left subclavian vein, left brachial cephalic vein, and superior vena cava demonstrates no significant stenosis. 3. Left arm angiogram of the arterial venous graft demonstrates recurrent focal moderate stenosis in the central graft body with approximately 60-70% stenosis. 5. Percutaneous transluminal angioplasty of recurrent moderate (60-70%) stenosis of the central portion of the graft body with 8 mm balloon followed by 8 mm drug coated with Lutonix balloon, as above. 6. Reflux angiogram across the arterial anastomosis revealed moderate stenosis of the arterial anastomosis with approximately 50% narrowing. 7. Ultrasound guided retrograde micropuncture access of the left brachial artery to brachial vein arteriovenous graft demonstrates graft patency. Needle entry was documented and sent to PACS. 8. Brachial arteriogram with evaluation of the arterial anastomosis demonstrates moderate stenosis. 9. Percutaneous transluminal angioplasty of moderate stenosis of the arterial anastomosis (50%) with 6 mm balloon as above. 10. Completion left brachial arteriogram with evaluation of the graft and graft outflow demonstrates no significant residual stenosis. IMPRESSION: Recurrent moderate stenosis in the central graft body treated with 8 mm angioplasty and drug coated balloon Moderate stenosis at the arterial anastomosis was treated with 6 mm angioplasty. Narrative Procedure Note Ajit Moralez MD - 11/03/2024 IMPRESSION: Please see below. Exam: IR FISTULOGRAM 1. Ultrasound-guided antegrade micropuncture access of the left brachial artery to brachial vein arteriovenous graft 2. Central venogram including the left subclavian vein, left brachial cephalic vein, and superior vena cava 3. Left arm angiogram of the arterial venous graft 5. Percutaneous transluminal angioplasty of recurrent moderate (60-70%) stenosis of the central portion of the graft body with 8 mm balloon followed treatment with an 8 mm Lutonix drug coated balloon 6. Reflux angiogram across the arterial anastomosis 7. Ultrasound guided retrograde micropuncture access of the left brachial artery to brachial vein arteriovenous graft 8. Brachial arteriogram with evaluation of the arterial anastomosis 9. Percutaneous transluminal angioplasty of moderate stenosis of the arterial anastomosis (50%) with 6 mm balloon 10. Completion left brachial arteriogram with evaluation of the graft and graft outflow Date/Time of Exam: 11/03/2024 1:16 PM REASON FOR EXAM: Difficult cannulation of the graft with decreased flows.. DIAGNOSIS: ESRD (end stage renal disease) ([facility]). Medications: Fentanyl and versed were titrated to effect. Moderate (conscious) sedation for this procedure was performed with continuous physician supervision. Medical history, physical exam, drug dosages, routes of drug administration, monitoring data, and precise times of service are documented in the medical record on the [facility]-approved form, 'Sedative/Analgesic Administration for Diagnostic and Therapeutic Procedures'. Please see nursing flow sheets for dosage and time. Sedation was administered by a trained independent observer. I personally supervised 45 minutes of sedation. Contrast: 40 mL Isovue-300 Fluoroscopy time: 2.4 minutes Estimated Blood Loss: Minimal Complications:None Implantable Devices: None Procedure: After informed consent was obtained from the patient, the patient was taken to the angiography suite and placed supine on the angiography table. The patient's left arm was prepped and draped in sterile fashion. A timeout was performed. The graft was evaluated with ultrasound. The skin overlying the peripheral aspect of the graft was anesthetized with lidocaine. Under direct ultrasound guidance, antegrade micropuncture access was obtained. An angiogram was performed and carried out centrally. A 0.035 inch Glidewire was advanced and the transitional dilator was exchanged for a 6 Malagasy vascular sheath. Angioplasty of recurrent moderate stenosis in the central arteriovenous graft body was performed with 8 mm angioplasty followed by 8mm tonics balloon. The balloon was left inflated for three minutes. Some milder stenosis within the graft was then treated with 8 mm angioplasty as well. Reflux angiogram during the angioplasty revealed that there was some moderate stenosis at the arterial anastomosis. The antegrade sheath was removed and hemostasis was achieved with pursestring button suture technique. Attention was then turned to the arterial side of the graft. The skin overlying the central graft body was anesthetized with lidocaine. Under direct ultrasound guidance, micropuncture access was obtained and exchanged for a 6 Malagasy sheath. A Glidewire was advanced retrograde into the brachial artery. Angioplasty of the arterial anastomotic stenosis was performed with a 6 mm balloon. A subsequent brachial arteriogram revealed no significant residual stenosis. The sheath was removed and hemostasis was achieved with pursestring but in suture technique. Sterile bandages were applied. The patient was injured recently in good condition with an improved thrill. Findings: 1. Ultrasound-guided antegrade micropuncture access of the left brachial artery to brachial vein arteriovenous graft demonstrates graft patency. Needle entry was documented and sent to PACS. 2. Central venogram including the left subclavian vein, left brachial cephalic vein, and superior vena cava demonstrates no significant stenosis. 3. Left arm angiogram of the arterial venous graft demonstrates recurrent focal moderate stenosis in the central graft body with approximately 60-70% stenosis. 5. Percutaneous transluminal angioplasty of recurrent moderate (60-70%) stenosis of the central portion of the graft body with 8 mm balloon followed by 8 mm drug coated with Lutonix balloon, as above. 6. Reflux angiogram across the arterial anastomosis revealed moderate stenosis of the arterial anastomosis with approximately 50% narrowing. 7. Ultrasound guided retrograde micropuncture access of the left brachial artery to brachial vein arteriovenous graft demonstrates graft patency. Needle entry was documented and sent to PACS. 8. Brachial arteriogram with evaluation of the arterial anastomosis demonstrates moderate stenosis. 9. Percutaneous transluminal angioplasty of moderate stenosis of the arterial anastomosis (50%) with 6 mm balloon as above. 10. Completion left brachial arteriogram with evaluation of the graft and graft outflow demonstrates no significant residual stenosis. IMPRESSION: Recurrent moderate stenosis in the central graft body treated with 8 mm angioplasty and drug coated balloon Moderate stenosis at the arterial anastomosis was treated with 6 mm angioplasty. us Yesi Madison MD IR ORDERABLES Final Result * TELEMETRY REPORT (09/25/2024 2:39 AM CDT) Only the most recent of2 resultswithin the time period is included. us Provider Scanning ECG ORDERABLES Final Result * (ABNORMAL) POC GLUCOSE (09/24/2024 12:46 PM CDT) Only the most recent of15 resultswithin the time period is included. GLUCOSE POC 170(H) 74 - 99 mg/dL 09/24/2024 12:46 PM CDT [facility] SPECIMEN SOURCE, GLUCOSE POC Capillary 09/24/2024 12:46 PM CDT [facility] Blood, whole 09/24/2024 12:4 6 PM CDT 09/24/2024 1:21 PM CDT Cas Barreto MD POINT OF CARE TESTING Final Res ult [facility] # [id number] [address] [place] [id number] * HEMODIALYSIS (09/24/2024 7:53 AM CDT) Narrative Yesi Madison MD - 09/24/2024 7:53 AM CDT Yesi Madison MD 09/24/2024 8:22 AM [facility] - Procedure Note Primary Machine Ii Trimmer: Dr. Yesi Madison PROCEDURE: Intermittent Hemodialysis INDICATION: end stage renal disease Procedure: Utilizing the patient's vascular access, the patient was initiated on hemodialysis. Dialysis is planned for 4 hours. Blood flow of 400 ml per minute and Dialysate flow of 600 ml per minute were prescribed. The bath used was 2 mEq/L potassium, 3 mEq/L calcium, 140 mEq/L sodium and 35 mEq/L bicarbonate. UF goal: 500 ml, BP stable. Revaclear 300 hollow fiber dialyzer was used. No anticoagulation. No complications have been encountered to this point. I was present during dialysis, and was available for the entirety of the dialysis treatment. # Compliant with frequency and duration of dialysis: yes Physical Exam: BP 100/75 Pulse 90 Temp 96.9 F (36.1 C) Resp 19 Ht 5' 5 (1.651 m) Wt 96 kg (211 lb 10.3 oz) SpO2 98% BMI 35.22 kg/m VSS. NAD Assesment and Plan: ESRD: on hemodialysis today then per TTS outpatient schedule. Will see on HD days while inpatient. He was orthostatic yesterday so will have minimal ultrafiltration with rinse back. Yesi Madison MD [facility] 09/24/24, 7:54 AM Pamela Sevilla DO DIALYSIS ORDERABLES Edited Resu lt - Final * (ABNORMAL) CBC WITH DIFFERENTIAL (09/24/2024 1:23 AM CDT) Only the most recent of5 resultswithin the time period is included. WBC 7.3 4.8 - 10.8 K/uL 09/24/2024 1:37 AM [facility] RBC 3.24(L) 4.60 - 6.20 M/uL 09/24/2024 1:37 AM [facility] HEMOGLOBIN 10.3(L) 14.0 - 18.0 g/dL 09/24/2024 1:37 AM [facility] HEMATOCRIT 30.2(L) 41.0 - 53.0 % 09/24/2024 1:37 AM [facility] MCV 93.2 84.0 - 103.0 fL 09/24/2024 1:37 AM [facility] MCH 31.8 27.0 - 34.0 pg 09/24/2024 1:37 AM [facility] MCHC 34.1 30.0 - 35.0 g/dL 09/24/2024 1:37 AM [facility] PLATELETS 207 140 - 440 K/uL 09/24/2024 1:37 AM [facility] MPV 9.3 8.9 - 12.8 fL 09/24/2024 1:37 AM [facility] RDW 15.5(H) 11.0 - 14.5 % 09/24/2024 1:37 AM [facility] RDW-STDEV 51.8 37.0 - 54.0 fL 09/24/2024 1:37 AM [facility] NEUTROPHILS 60 42 - 75 % 09/24/2024 1:37 AM [facility] LYMPHOCYTES 27 24 - 44 % 09/24/2024 1:37 AM [facility] MONOCYTES 9 2 - 10 % 09/24/2024 1:37 AM [facility] EOSINOPHILS 3 0 - 7 % 09/24/2024 1:37 AM [facility] BASOPHILS 1 0 - 1 % 09/24/2024 1:37 AM [facility] IMMATURE GRANULOCYTES 0 0 - 2 % 09/24/2024 1:37 AM [facility] NEUTROPHIL ABSOLUTE 4.37 2.00 - 8.00 K/uL 09/24/2024 1:37 AM [facility] LYMPHOCYTE ABSOLUTE 1.98 1.20 - 4.00 K/uL 09/24/2024 1:37 AM [facility] MONOCYTE ABSOLUTE 0.65(H) 0.10 - 0.60 K/uL 09/24/2024 1:37 AM [facility] EOSINOPHIL ABSOLUTE 0.22 0.00 - 0.70 K/uL 09/24/2024 1:37 AM [facility] BASOPHILS ABSOLUTE 0.04 0.00 - 0.20 K/uL 09/24/2024 1:37 AM [facility] IMMATURE GRANULOCYTES ABSOLUTE 0.03 0.00 - 0.10 K/uL 09/24/2024 1:37 AM [facility] SMEAR REVIEWED: NA - Not Applicable 09/24/2024 1:37 AM [facility] Blood Venipuncture / Unknown 09/24/2024 1:23 AM CDT 09/24/2024 1:31 AM CDT us Cas Barreto MD HEMATOLOGY ORDERABLES Final Res ult [facility] CLIA # [id number] [address] [place] [address] [place] [address] * (ABNORMAL) BASIC METABOLIC PANEL (09/24/2024 1:23 AM CDT) Only the most recent of5 resultswithin the time period is included. SODIUM 134(L) 136 - 145 mmol/L 09/24/2024 2:06 AM T [facility] POTASSIUM 3.9 3.5 - 5.1 mmol/L 09/24/2024 2:06 AM [facility] Comment:Moderate hemolysis p resent. Can cause significant falsely elevated result. Redraw if indicated. CHLORIDE 96(L) 98 - 107 mmol/L 09/24/2024 2:06 AM [facility] CO2 26 22 - 29 mmol/L 09/24/2024 2:06 AM [facility] CALCIUM 8.5(L) 8.6 - 10.0 mg/dL 09/24/2024 2:06 AM [facility] BUN 35(H) 6 - 20 mg/dL 09/24/2024 2:06 AM T [facility] CREATININE 4.10(H) 0.67 - 1.17 mg/dL 09/24/2024 2:06 AM [facility] GLUCOSE 133(H) 74 - 99 mg/dL 09/24/2024 2:06 AM [facility] GFR 16(L) >=60 mL/min/1. 73 sq meter 09/24/2024 2:06 AM [facility] Comment:eGFR calculated with 2020 CKD-EPI equation. Vegetarian diet, extremely high or low muscle mass, and may affect results. Cystatin C with Glomerular Filtration Rate is a suitable alternative for these patients. ANION GAP 12 9 - 20 mmol/L 09/24/2024 2:06 AM CDT [facility] Blood Venipuncture / Unknown 09/24/2024 1:23 AM CDT 09/24/2024 1:31 AM CDT Cas Barreto MD CHEMISTRY ORDERABLES Final Resu lt Performing Organization Address [facility] Co de Phone Number [facility] CLIA # [id number] [address] [address] [place] [address] * (ABNORMAL) TROPONIN (09/23/2024 3:22 PM CDT) TROPONIN T, 5TH GEN 42(H) <=15 ng/L 09/23/2024 4:17 PM CDT [facility] Blood Venipuncture / Unknown 09/23/2024 3:22 PM CDT 09/23/2024 3:46 PM CDT Narrative [facility] - 09/23/2024 4:17 PM CDT Troponin elevated. 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1970 Requested By: Order Number: [id number] Reading : Erasmo Reese Measurements Intervals [place] Rate: 79 P: 42 GA: 182 QRS: 23 QRSD: 112 T: 121 QT: 394 QTc: 451 Interpretive Statements Normal sinus rhythm Anterior infarct, age undetermined Abnormal ECG Electronically Signed On 09-23-2024 20:04:59 CDT by Erasmo Reese Procedure Note Erasmo Reese MD - 09/23/[address] [address] Test Date: 2024-09-23 Pat Name: SMITHA QUEEN Department: 12 Room: [address] [place] [address] 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: Male 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1970 Requested By: Order Number: [id number] Reading : Erasmo Reese Measurements Intervals [place] Rate: 79 P: 42 GA: 182 QRS: 23 QRSD: 112 T: 121 QT: 394 QTc: 451 Interpretive Statements Normal sinus rhythm Anterior infarct, age undetermined Abnormal ECG Electronically Signed On 09-23-2024 20:04:59 CDT by Erasmo Reese us Cas Barreto MD ECG ORDERABLES Final Result INTERFACE SYSTEM Refer to clinic/hospital department * HEMODIALYSIS (09/22/2024 12:36 PM CDT) Narrative Yesi Madison MD - 09/22/2024 12:36 PM CDT Yesi Madison MD 09/22/2024 1:21 PM [facility] - Procedure Note Primary Machine Ii Trimmer: Dr. Yesi Madison PROCEDURE: Intermittent Hemodialysis INDICATION: end stage renal disease Procedure: Utilizing the patient's vascular access, the patient was initiated on hemodialysis. Dialysis is planned for 4 hours. Blood flow of 400 ml per minute and Dialysate flow of 600 ml per minute were prescribed. The bath used was 2 mEq/L potassium, 3 mEq/L calcium, 140 mEq/L sodium and 35 mEq/L bicarbonate. UF goal: 2L, BP stable. Revaclear 300 hollow fiber dialyzer was used. No anticoagulation. No complications have been encountered to this point. I was present during dialysis, and was available for the entirety of the dialysis treatment. # Compliant with frequency and duration of dialysis: yes Physical Exam: BP 107/62 Pulse 80 Temp 98.1 F (36.7 C) Resp 14 Ht 5' 5 (1.651 m) Wt 94.8 kg (209 lb 1.6 oz) SpO2 95% BMI 34.80 kg/m VSS. NAD Assesment and Plan: ESRD: on hemodialysis today then per TTS outpatient schedule. Will see on HD days while inpatient. Zoey Johnson NP [facility] 09/22/24, 12:36 PM Pamela Sevilla DO DIALYSIS ORDERABLES Final Resul t * HEMODIALYSIS (09/21/2024 4:14 PM CDT) Zita Blank MD - 09/21/2024 4:14 PM CDT Zita Gilbert MD 09/21/2024 7:36 PM [facility] - Procedure Note Primary Machine Ii Trimmer: Dr. Yesi Madison PROCEDURE: Intermittent Hemodialysis INDICATION: esrd Procedure: Utilizing the patient's vascular access, the patient was initiated on hemodialysis. Dialysis is planned for 4 hours. Blood flow of 400 ml per minute and Dialysate flow of 600 ml per minute were prescribed. The bath used was 2 mEq/L potassium, 3 mEq/L calcium, 140 mEq/L sodium and 35 mEq/L bicarbonate. UF goal: 2L, BP stable. Revaclear 300 hollow fiber dialyzer was used. No anticoagulation. No complications have been encountered to this point. I was present during dialysis, and was available for the entirety of the dialysis treatment. # Compliant with frequency and duration of dialysis: yes Physical Exam: BP 111/58 Pulse 84 Temp 97.2 F (36.2 C) (Temporal) Resp 14 Ht 5' 5 (1.651 m) Wt 94.8 kg (209 lb 1.6 oz) SpO2 94% BMI 34.80 kg/m VSS. NAD Assesment and Plan: ESRD: on hemodialysis today then per TTS outpatient schedule. Will see on HD days while inpatient. Zoey Johnson NP [facility] 09/21/24, 4:15 PM Windy Chirinos [employer] DIALYSIS ORDERABLES Final R esult * US DUPLEX ARTERIAL ARM LEFT (09/19/2024 3:26 PM CDT) Anatomical Region Laterality Modality Upper Extremity Ultrasound 09/19/2024 3:04 PM CDT Narrative 09/19/2024 4:28 PM CDT [facility] Noninvasive Vascular Laboratory [address] [place] [address] Noninvasive Vascular Lab Upper Extremity Hemodialysis Access Follow-up Evaluation Patient: Smitha Queen Junior Study ID: US DUPLEX ARTERI Gender: M : 1970 Age: 54 Room: 15 Height: 165.1cm Weight: 93.8kg BSA: 2.11m^2 Pt status: Outpatient Study Date: 09/19/2024 Study Time: 03:04:00 PM BSA: 2.11m^2 Ordering: Lucia Hernandez Interpreting:Erasmo Berg Salesperson Parts: Coby Chau RVT Indications: Concern for thrombosed dialysis graft. Summary Impression: Study demonstrates a patent dialysis graft with slightly elevated velocities of 2.73 m/s in the mid portion and velocities of 3.25m/s in the distal anastomosis. Study data: Upper extremity hemodialysis access followup evaluation. Duplex scan. Height: 165.1cm. Height: 65in. Weight: 93.8kg. Weight: 206.9lb. BMI: 34.4kg/m^2. BSA: 2.11m^2. Patient status: Outpatient. Study status: Routine. Procedure: A vascular evaluation was performed with the patient in the supine position. Image quality was good. [facility] Vascular Lab is accredited with the Intersoci[employer] Commission for the Accreditation of Vascular Laboratories (ICAVL) Prepared and Electronically Authenticated Erasmo Berg Confirmed 09/19/2024 16:28 Procedure Note Erasmo Berg MD - 09/19/2024 [facility] Services Noninvasive Vascular Laboratory [address] [place] [id number] Noninvasive Vascular Lab Upper Extremity Hemodialysis Access Follow-up Evaluation Patient: Smitha Queen Junior Study ID: US DUPLEX ARTERI Gender: M : 1970 Age: 54 Room: 15 Height: 165.1cm Weight: 93.8kg BSA: 2.11m^2 Pt status: Outpatient Study Date: 09/19/2024 Study Time: 03:04:00 PM BSA: 2.11m^2 Ordering: Lucia Hernandez Interpreting:Erasmo Berg Salesperson Parts: Coby Chau RVT Indications: Concern for thrombosed dialysis graft. Summary Impression: Study demonstrates a patent dialysis graft with slightly elevatedvelocities of 2.73 m/s in the mid portion and velocities of 3.25m/s in the distal anastomosis. Study data: Upper extremity hemodialysis access followup evaluation. Duplex scan. Height: 165.1cm. Height: 65in. Weight: 93.8kg.Weight: 206.9lb. BMI: 34.4kg/m^2. BSA: 2.11m^2. Patient status:Outpatient. Study status: Routine. Procedure: A vascular evaluation wasperformed with the patient in the supine position. Image quality was good. [facility] is accredited with theIntersocietal Commission for the Accreditation of Vascular Laboratories (ICAVL) Prepared and Electronically Authenticated Erasmo Berg Confirmed 09/19/2024 16:28 us Lucia Hernandez DO US ORDERABLES Final Result * (ABNORMAL) PROTIME-INR (09/19/2024 3:11 PM CDT) Only the most recent of2 resultswithin the time period is included. PROTIME 14.8(H) 12.6 - 14.6 Seconds 09/19/2024 3:45 PM CDT [facility] INR 1.1 0.8 - 1.2 09/19/2024 3:45 PM CDT [facility] Blood Venipuncture / Unknown 09/19/2024 3:11 PM CDT 09/19/2024 3:22 PM CDT [facility] - 09/19/2024 3:45 PM CDT Expected Values for INR: DVT/PE Goal INR 2.5; range 2.0 - 3.0 Valve Replacement Tissue Goal INR 2.5; range 2.0 - 3.0 Valve Replacement Mechanical Goal INR 3.0; range 2.5 - 3.5 POST-IA Goal INR 2.5; range 2.0 - 3.0 or Goal INR 3.0; range 2.5 - 3.5 Atrial Fibrillation Goal INR 2.5; range 2.0 - 3.0 Ischemic Stroke Goal INR 2.5; range 2.0 - 3.0 Lucia Hernandez DO HEMATOLOGY ORDERABLES Final Resu lt Performing Organization Address [facility] Co de Phone Number [facility] [place] CLIA # [id number] [address] [address] * TYPE AND SCREEN (09/19/2024 3:11 PM CDT) ABO GROUP O 09/19/2024 4:00 PM CDT [facility] [place] RH (D) TYPE Negative 09/19/2024 4:00 PM CDT [facility] [place] ANTIBODY SCREEN Negative 09/19/2024 4:00 PM CDT [facility] [place] Blood Venipuncture / Unknown 09/19/2024 3:11 PM CDT 09/19/2024 3:22 PM CDT us Lucia Hernandez DO BLOOD BANK ORDERABLES Edited Res ult - Final Performing Organization Address [facility] Co de Phone Number [facility] [place] CLIA#[id number] [facility] [place] [address], * PTT (09/19/2024 11:29 AM CDT) PTT 30.1 25.8 - 34.0 seconds 09/19/2024 11:57 AM CDT [facility] Blood BLOOD SPECIMEN / Unknown Collection / Unknown 09/19/2024 11:29 AM CDT 09/19/2024 11:38 AM CDT Joesph Larios MD HEMATOLOGY ORDERABLES Final Res ult Performing Organization Address [facility]/ZIP Co de Phone Number [facility] CLIA # [id number] [address] [place] [address] * (ABNORMAL) D-DIMER (09/19/2024 11:29 AM CDT) D-DIMER QUANT 1.25(H) <0.50 ug/mL FEU 09/19/2024 12:00 PM CDT [facility] Blood BLOOD SPECIMEN / Unknown Collection / Unknown 09/19/2024 11:29 AM CDT 09/19/2024 11:38 AM CDT [facility] - 09/19/2024 12:00 PM CDT D-Dimer assay cutoff value for exclusion of DVT and/or PE is <0.50 ug/mL FEU. As D-Dimer levels increase naturally with age, age stratification for patients over 50 is potentially more appropriate in determining whether a patient should undergo further evaluation for DVT and/or PE than a general cutoff of 0.50 ug/mL FEU. Clinical consideration is recommended. Age Stratified Cutoff Values: 50-60 years: 0.50-0.60 ug/mL FEU 61-70 years: 0.61-0.70 ug/mL FEU 71-80 years: 0.71-0.80 ug/mL FEU us Joesph Larios MD HEMATOLOGY ORDERABLES Final Res ult Performing Organization Address [facility]/ZIP Co de Phone Number [facility] CLIA # [id number] [address] [place] [address] * C-REACTIVE PROTEIN (09/19/2024 11:29 AM CDT) CRP 4.7 <5.0 mg/L 09/19/2024 12:00 PM CDT [facility] Blood BLOOD SPECIMEN / Unknown Collection / Unknown 09/19/2024 11:29 AM CDT 09/19/2024 11:38 AM CDT us Joesph Larios MD CHEMISTRY ORDERABLES Final Resu lt Performing Organization Address [facility]/ZIP Co de Phone [id number] [address] [place] [address] * (ABNORMAL) BRAIN NATRIURETIC PEPTIDE, BNP OR PROBNP (09/19/2024 11:29 AM CDT) PROBNP, N TERMINAL 1,241(H) 0 - 125 pg/mL 09/19/2024 12:00 PM CDT [facility] Comment: INTERPRETIVE COMMENT based on diagnosis: Diagnostic NT pro-BNP cutoffs for Heart Failure in the absence of renal failure is suggested for the following ranges <75 years: <125 pg/mL >=75 years: <450 pg/mL Exclusionary rule out cut-point for Acute Decompensated Heart Failure(ADHF) All ages: <300 pg/mL Diagnostic NT pro-BNP cutoffs for Acute Decompensated Heart Failure(ADHF) in the absence of renal failure is suggested for the following ages <50 years: > 450 pg/mL 50-75 years: > 900 pg/mL >75 years: >1800 pg/mL Blood BLOOD SPECIMEN / Unknown Collection / Unknown 09/19/2024 11:29 AM CDT 09/19/2024 11:38 AM CDT us Joesph Larios MD CHEMISTRY ORDERABLES Final Resu lt Performing Organization Address City/[facility]/ZIP Co de Phone Number [facility] CLIA # [id number] [address] [place] [address] * MAGNESIUM LEVEL (09/19/2024 11:29 AM CDT) MAGNESIUM 1.9 1.6 - 2.6 mg/dL 09/19/2024 12:00 PM CDT [facility] Blood BLOOD SPECIMEN / Unknown Collection / Unknown 09/19/2024 11:29 AM CDT 09/19/2024 11:38 AM CDT us Joesph Larios MD CHEMISTRY ORDERABLES Final Resu lt [id number] [address] [place] [address] * (ABNORMAL) COMPREHENSIVE METABOLIC PANEL (09/19/2024 11:29 AM CDT) SODIUM 138 136 - 145 mmol/L 09/19/2024 12:00 PM [facility] POTASSIUM 4.4 3.5 - 5.1 mmol/L 09/19/2024 12:00 PM [facility] CHLORIDE 99 98 - 107 mmol/L 09/19/2024 12:00 PM [facility] CO2 29 22 - 29 mmol/L 09/19/2024 12:00 PM [facility] CALCIUM 8.7 8.6 - 10.0 mg/dL 09/19/2024 12:00 PM [facility] BUN 35(H) 6 - 20 mg/dL 09/19/2024 12:00 PM [facility] CREATININE 3.36(H) 0.67 - 1.17 mg/dL 09/19/2024 12:00 PM [facility] GLUCOSE 141(H) 74 - 99 mg/dL 09/19/2024 12:00 PM [facility] TOTAL PROTEIN 5.7(L) 6.6 - 8.7 g/dL 09/19/2024 12:00 PM [facility] ALBUMIN 3.5(L) 4.0 - 4.9 g/dL 09/19/2024 12:00 PM [facility] BILIRUBIN TOTAL 0.4 0.0 - 1.2 mg/dL 09/19/2024 12:00 PM [facility] ALKALINE PHOSPHATASE 86 40 - 129 U/L 09/19/2024 12:00 PM [facility] AST 14 0 - 50 U/L 09/19/2024 12:00 PM [facility] ALT 9 0 - 50 U/L 09/19/2024 12:00 PM T [facility] GFR 21(L) >=60 mL/min/1.7 3 sq meter 09/19/2024 12:00 PM [facility] Comment:eGFR calculated with 2020 CKD-EPI equation. Vegetarian diet, extremely high or low muscle mass, and may affect results. Cystatin C with Glomerular Filtration Rate is a suitable alternative for these patients. ANION GAP 10 5 - 20 mmol/L 09/19/2024 12:00 PM T [facility] Blood BLOOD SPECIMEN / Unknown Collection / Unknown 09/19/2024 11:29 AM CDT 09/19/2024 11:38 AM CDT us Joesph Larios MD CHEMISTRY ORDERABLES Final Resu lt Performing Organization Address [facility] Co de Phone Number [facility] CLIA # [id number] [address] [place] [address] * (ABNORMAL) HEMOGLOBIN A1C (06/27/2024 5:39 AM INDUSTRIAL CHEMISTRY TEACHER) HEMOGLOBIN A1C 6.6(H) <=5.6 % 06/29/2024 9:10 AM INDUSTRIAL CHEMISTRY TEACHER [facility] EST. AVG GLUCOSE, A1C 143 mg/dL 06/29/2024 9:10 AM [facility] Blood Collection / Unknown 06/27/2024 5:39 AM INDUSTRIAL CHEMISTRY TEACHER 06/27/2024 6:05 AM INDUSTRIAL CHEMISTRY TEACHER Narrative [facility] - 06/29/2024 9:10 AM INDUSTRIAL CHEMISTRY TEACHER HGB A1C INTERPRETATION NORMAL: <5.7% PRE-DIABETES: 5.7 - 6.4% DIABETES: 6.5% OR GREATER us Joey Vo DO CHEMISTRY ORDERABLES Final R esult Performing Organization Address [facility]/ZIP Co de Phone Number [facility] CLIA # [id number] [address] [place] [address] * (ABNORMAL) LIPID PANEL (05/02/2023 9:36 PM INDUSTRIAL CHEMISTRY TEACHER) CHOLESTEROL 224(H) <200 mg/dL 05/03/2023 10:26 PM [facility] TRIGLYCERIDE 286(H) <150 mg/dL 05/03/2023 10:26 PM [facility] HDL 39(L) 40 - 59 mg/dL 05/03/2023 10:26 PM [facility] LDL CALCULATED 128(H) <100 mg/dL 05/03/2023 10:26 PM [facility] NON-HDL CHOLESTEROL 185(H) <130 mg/dL 05/03/2023 10:26 PM [facility] Blood Venipuncture / Unknown 05/02/2023 9:36 PM INDUSTRIAL CHEMISTRY TEACHER 05/02/2023 9:51 PM INDUSTRIAL CHEMISTRY TEACHER Narrative [facility] - 05/03/2023 10:26 PM [facility] TOTAL CHOLESTEROL mg/dL Desirable <200 Borderline high 200-239 High >=240 TRIGLYCERIDES mg/dL Normal <150 Borderline high 150-199 High 200-499 Very high >=500 HDL CHOLESTEROL mg/dL Low <40 Normal 40-59 Desirable >=60 NON HDL CHOLESTEROL mg/dL Optimal <130 Near Optimal 130-159 Borderline High 160-189 Very High >=190 CALCULATED LDL mg/dL LDL <70, OPTIMAL if have Atherosclerotic cardiovascular disease (ASCVD) or intermediate or higher (>7.5%) 10 year risk of ASCVD including most adults with diabetes. LDL <100, Optimal in adult patients with low (<7.5%) 10 year ASCVD risk LDL 100-160, Suboptimal LDL >160, High LDL >190, Very high ATPIII Guidelines Reference Ranges for Lipid Panels (NCEP/AMA) . us Shaggy Covarrubias MD CHEMISTRY ORDERABLES Final Resul t [facility] CLIA # [id number] [address] [place] [address] from Last 3 Months or Most Recently Relevant to Health Maintenance Insurance MEDICAID [facility] [id number] * Guarantor: SMTIHA QUEEN II Account Type Relation to Patient Date of Phone Billing Address Personal/Family [address] [place] [address] RX [employer] PLANS (INTERNAL) [facility] RX [employer] Commercial RX INFOCROSSING Medicaid RX [employer] RX Member Subscriber Plan / Payer (Ef fective for All Dates) Name:Smitha Queen II, Junior Relation to Subscriber:Self Name:Smitha Queen II, Junior Payer ID:Not on file Type:RX Medicare Part D Address: [address] Advance Directives For more information, please contact: [phone] Documents on File Type Date Recorded 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 Expl anation Advance Directive POA 08/23/2014 4:06 PM Ad anguiano Directive POA Advance Directive Living Will 08/13/2014 12:18 AM * Full Code (Latest Code Status on File) Date Activated Date Inactivated Comments 09/19/2024 5:07 PM 09/24/2024 7:02 PM * Full Code Date Activated Date Inactivated Comments 07/23/2024 5:30 PM 07/23/2024 9:03 PM * Full Code Date Activated Date Inactivated Comments 07/23/2024 1:44 PM 07/23/2024 5:30 PM * Full Code Date Activated Date Inactivated Comments 07/23/2024 12:34 PM 07/23/2024 1:44 PM * Full Code Date Activated Date Inactivated Comments 06/29/2024 2:16 AM 07/03/2024 6:07 PM Care Teams Mixed Crop Farmer Relationship Specialty Start Date End Date Dez Evans MD [address] [place] [address] PCP - General Family Practice 06/18/24
--- OUTSIDE RECORDS SUMMARY | 2024-12-07 16:32 | XMS_ITS | Encounter Summary ---
Author Organization [facility], [facility] Address [address] [place] [address] Phone Care Team Providers Care Food Service Steward Name Role Phone MontanezKp kevin Primary Care Provider [phone] Encounter Details Date Type Department Care Team (Late st Contact Info) Description 09/29/2024 [facility] [address] [place] [address] Ayad Monahan, SYSTEMS INTEGRATION ENGINEER [address] [place] [address] Social History Tobacco Use Types [...] Progress Notes * Ayad Monahan NP - 09/29/2024 12:00 AM CDT Patient: Rei Queen : 1970 Note Type: Dialysis TCM Service Date: 09/29/2024 The patient was seen for a [id number] visit as part of Transitional Care Management services. Attending Animal Care Taker: RITA MENENDEZ Dialysis Location: [facility] Schedule: Shift: 1 INTERACTIVE CONTACT Contact with the patient or caregiver was made or attempted within 2 business days of discharge - details in the medical record. HOSPITALIZATION SUMMARY Patient transitioned from: Hospital Patient transitioned to: Home Admit Date: 09/19/2024 Discharge Date: 09/25/2024 Discharged info reviewed: No outstanding diagnostic tests and treatments Reason for admission: Hemodialysis access problem. Fistulogram performed. Received HD during hospitalization. Fistula now working well. HOME MEDICATIONS Discharge med list reviewed and reconciled - no changes. Active treatment medication orders reviewed - no changes. TREATMENT MEDICATIONS ORDERS Heparin Sodium (Porcine) 1,000 Units/mL Systemic 4000 units IVP Every Treatment 04/07/2024 - 04/06/2025 Mircera 30 mcg IVP Every 4 weeks 09/15/2024 - 09/14/2025 PHYSICAL EXAM Exam performed. Vital Signs Reviewed. Lungs - Clear. CV - Blood pressure noted. 1+ edema. EXT - No ulcers. DIALYSIS PRESCRIPTION Treatment Data Treatment Date: 09/29/2024 started at: 7:45 AM Dialysate / Machine Temp (prescribed): 37.0*C Dialysate / Machine Temp (actual): 37.0*C BFR (prescribed): 450 BFR (actual): 450 DFR (prescribed): Autoflow 2.0 DFR (actual): 800 Prescribed Time: 03:45 EDW (kg): 91.0 Dialyzer: 180NRe Optiflux Dialysate: 3.0 K, 2.5 Ca, 1.0 Mg, 100 Dextrose (N3251) Sodium: 138 Bicarb: 34 Pre Dialysis Vitals Pre BP Sit: 155/63 Pre Wt (kg): 94.0 EDW Deviation (kg): 3.0 Temp: 98.1*F Current Dialysis Vitals BP Sit: 159/81 AP/BIT SETTER: 198/162 Pulse: 86 CARE COORDINATION No follow-up appointments noted. COMMENTS: no new referrals. EDUCATION Education relevant to the discharge diagnosis provided to the patient or caregiver IMPRESSION & PLAN COMMENTS: 1.hemodialysis access problem; fistulogram completed. Now working well. 2. ESRD on HD: Continue HD TTS. VISIT DIAGNOSES CPT Code 13955 - High complexity, seen within 7 days of discharge. N18.6 End stage renal disease Z45.2 Encounter for adjustment and management of vascular access device Signed by: AYAD MONAHAN NP on 09/29/2024 at 08:42:31 AM Transcribed by: AYAD MONAHAN NP on 09/29/2024 at 08:42:31 AM documented in this encounter Plan of Treatment Not on file documented as of this encounter Visit Diagnoses Not on filedocumented in this encounter Care Teams Food Service Steward Relationship Specialty Start Date End Date Kp Montanez DO [address] [place] [address] PCP - General Internal Medicine 01/07/23 documented as of this encounter
--- OUTSIDE RECORDS SUMMARY | 2024-12-07 16:32 | XMS_ITS | Patient Health Record ---
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 Name Role Phone Cristina RITTER, Dez Primary Care Provider UnavailElizabeth Jon Unavailable [phone] Pee Castaneda MD Unavailable Unavailable Ray Sherman Unavailable [phone] Shelley Llanes Unavailable [phone] Migration, Provider Unavailable Unavailable Ajit Silver Unavailable [phone] Allergies Allergen (clinical drug ingredient) Drug/Non Drug [...] (substance) sulfa drugs Unknown Drug Allergy Active Results Component Value Reference Range Flag Notes Urine Confirmation Panel (in strument) - [id number] Reviewed date:09/01/2024 08:59:18 AM Interpretation: Performing Lab: Notes/Report: 6-Acetylmorphine 0 <6 ng/mL N This abimbola t was developed and its performance characteristics determined by [facility]. It has not been cleared or approved by the U.S. Food and Drug Administration. 7-Aminoclonazepam 0 <60 ng/mL N This te st was developed and its performance characteristics determined by [facility]. It has not been cleared or approved by the U.S. Food and Drug Administration. Alprazolam 0 <60 ng/mL N This test was developed and its performance characteristics determined by [facility]. It has not been cleared or approved by the U.S. Food and Drug Administration. Amphetamine 0 <75 ng/mL N This test was developed and its performance characteristics determined by [facility]. It has not been cleared or approved by the U.S. Food and Drug Administration. aOH-Alprazolam 0 <60 ng/mL N This test was developed and its performance characteristics determined by [facility]. It has not been cleared or approved by the U.S. Food and Drug Administration. Buprenorphine 3.1 <7.5 ng/mL N This test w as developed and its performance characteristics determined by [facility]. It has not been cleared or approved by the U.S. Food and Drug Administration. Norbuprenorphine 0.0 <37.5 ng/mL N This te st was developed and its performance characteristics determined by [facility]. It has not been cleared or approved by the U.S. Food and Drug Administration. Carisoprodol 0 <75 ng/mL N This test wa s developed and its performance characteristics determined by [facility]. It has not been cleared or approved by the U.S. Food and Drug Administration. Codeine 0 <75 ng/mL N This test was developed and its performance characteristics determined by [facility]. It has not been cleared or approved by the U.S. Food and Drug Administration. EDDP 0 <75 ng/mL N This test was developed and its performance characteristics determined by [facility]. It has not been cleared or approved by the U.S. Food and Drug Administration. Fentanyl 0 <6 ng/mL N This test was developed and its performance characteristics determined by [facility]. It has not been cleared or approved by the U.S. Food and Drug Administration. Hydrocodone 100 <75 ng/mL H This test was developed and its performance characteristics determined by [facility]. It has not been cleared or approved by the U.S. Food and Drug Administration. Hydromorphone 31 <75 ng/mL N This test w as developed and its performance characteristics determined by [facility]. It has not been cleared or approved by the U.S. Food and Drug Administration. Lorazepam 0 <60 ng/mL N This test was developed and its performance characteristics determined by [facility]. It has not been cleared or approved by the U.S. Food and Drug Administration. MDMA 6 <75 ng/mL N This test was developed and its performance characteristics determined by [facility]. It has not been cleared or approved by the U.S. Food and Drug Administration. Meperidine 0.0 <37.5 ng/mL N This test was developed and its performance characteristics determined by [facility]. It has not been cleared or approved by the U.S. Food and Drug Administration. Meprobamate 0 <75 ng/mL N This test was developed and its performance characteristics determined by [facility]. It has not been cleared or approved by the U.S. Food and Drug Administration. Methamphetamine 0 <75 ng/mL N This test was developed and its performance characteristics determined by [facility]. It has not been cleared or approved by the U.S. Food and Drug Administration. Methadone 0 <75 ng/mL N This test was developed and its performance characteristics determined by [facility]. It has not been cleared or approved by the U.S. Food and Drug Administration. Morphine 0 <75 ng/mL N This test was developed and its performance characteristics determined by [facility]. It has not been cleared or approved by the U.S. Food and Drug Administration. Nordiazepam 0 <60 ng/mL N This test was developed and its performance characteristics determined by [facility]. It has not been cleared or approved by the U.S. Food and Drug Administration. Norfentanyl 0 <6 ng/mL N This test was developed and its performance characteristics determined by [facility]. It has not been cleared or approved by the U.S. Food and Drug Administration. Normeperidine 0.0 <37.5 ng/mL N This test was developed and its performance characteristics determined by [facility]. It has not been cleared or approved by the U.S. Food and Drug Administration. O-desmethyltramadol 0 <75 ng/mL N This test was developed and its performance characteristics determined by [facility]. It has not been cleared or approved by the U.S. Food and Drug Administration. Oxazepam 0 <60 ng/mL N This test was developed and its performance characteristics determined by [facility]. It has not been cleared or approved by the U.S. Food and Drug Administration. Oxycodone 1.8 <37.5 ng/mL N This test was developed and its performance characteristics determined by [facility]. It has not been cleared or approved by the U.S. Food and Drug Administration. Oxymorphone 0 <75 ng/mL N This test was developed and its performance characteristics determined by [facility]. It has not been cleared or approved by the U.S. Food and Drug Administration. Phencyclidine 0.0 <7.5 ng/mL N This test w as developed and its performance characteristics determined by [facility]. It has not been cleared or approved by the U.S. Food and Drug Administration. Tapentadol 0.0 <37.5 ng/mL N This test was developed and its performance characteristics determined by [facility]. It has not been cleared or approved by the U.S. Food and Drug Administration. Temazepam 0 <60 ng/mL N This test was developed and its performance characteristics determined by [facility]. It has not been cleared or approved by the U.S. Food and Drug Administration. Tramadol 7 <75 ng/mL N This test was developed and its performance characteristics determined by [facility]. It has not been cleared or approved by the U.S. Food and Drug Administration. Norhydrocodone 445 <75 ng/mL H This test was developed and its performance characteristics determined by [facility]. It has not been cleared or approved by the U.S. Food and Drug Administration. Noroxycodone 0 <38 ng/mL N This test wa s developed and its performance characteristics determined by [facility]. It has not been cleared or approved by the U.S. Food and Drug Administration. Pregabalin 0 <225 ng/mL N This test was developed and its performance characteristics determined by [facility]. It has not been cleared or approved by the U.S. Food and Drug Administration. Gabapentin 130 <225 ng/mL N This test was developed and its performance characteristics determined by [facility]. It has not been cleared or approved by the U.S. Food and Drug Administration. Benzoylecgonine 0.0 <37.5 ng/mL N This abimbola t was developed and its performance characteristics determined by [facility]. It has not been cleared or approved by the U.S. Food and Drug Administration. 4-Hydroxy Xylazine 0 <25 ng/mL N This t est was developed and its performance characteristics determined by [facility]. It has not been cleared or approved by the U.S. Food and Drug Administration. Urine Drug Screen (cup read) - [id number] Reviewed date:11/05/2024 02:20:09 PM Interpretation: Performing Lab: Notes/Report: BUP + OPI + OXY + Urine Confirmation Panel (in strument) - [id number] Reviewed date:11/10/2024 02:00:57 PM Interpretation: Performing Lab: Notes/Report: 6-Acetylmorphine 0 <6 ng/mL N This abimbola t was developed and its performance characteristics determined by [facility]. It has not been cleared or approved by the U.S. Food and Drug Administration. 7-Aminoclonazepam 0 <60 ng/mL N This te st was developed and its performance characteristics determined by [facility]. It has not been cleared or approved by the U.S. Food and Drug Administration. Alprazolam 0 <60 ng/mL N This test was developed and its performance characteristics determined by [facility]. It has not been cleared or approved by the U.S. Food and Drug Administration. Amphetamine 0 <75 ng/mL N This test was developed and its performance characteristics determined by [facility]. It has not been cleared or approved by the U.S. Food and Drug Administration. aOH-Alprazolam 0 <60 ng/mL N This test was developed and its performance characteristics determined by [facility]. It has not been cleared or approved by the U.S. Food and Drug Administration. Buprenorphine 0.0 <7.5 ng/mL N This test w as developed and its performance characteristics determined by [facility]. It has not been cleared or approved by the U.S. Food and Drug Administration. Norbuprenorphine 0.0 <37.5 ng/mL N This te st was developed and its performance characteristics determined by [facility]. It has not been cleared or approved by the U.S. Food and Drug Administration. Carisoprodol 0 <75 ng/mL N This test wa s developed and its performance characteristics determined by [facility]. It has not been cleared or approved by the U.S. Food and Drug Administration. Codeine 0 <75 ng/mL N This test was developed and its performance characteristics determined by [facility]. It has not been cleared or approved by the U.S. Food and Drug Administration. EDDP 0 <75 ng/mL N This test was developed and its performance characteristics determined by [facility]. It has not been cleared or approved by the U.S. Food and Drug Administration. Fentanyl 0 <6 ng/mL N This test was developed and its performance characteristics determined by [facility]. It has not been cleared or approved by the U.S. Food and Drug Administration. Hydrocodone 635 <75 ng/mL H This test was developed and its performance characteristics determined by [facility]. It has not been cleared or approved by the U.S. Food and Drug Administration. Hydromorphone 12 <75 ng/mL N This test w as developed and its performance characteristics determined by [facility]. It has not been cleared or approved by the U.S. Food and Drug Administration. Lorazepam 0 <60 ng/mL N This test was developed and its performance characteristics determined by [facility]. It has not been cleared or approved by the U.S. Food and Drug Administration. MDMA 0 <75 ng/mL N This test was developed and its performance characteristics determined by [facility]. It has not been cleared or approved by the U.S. Food and Drug Administration. Meperidine 0.0 <37.5 ng/mL N This test was developed and its performance characteristics determined by [facility]. It has not been cleared or approved by the U.S. Food and Drug Administration. Meprobamate 0 <75 ng/mL N This test was developed and its performance characteristics determined by [facility]. It has not been cleared or approved by the U.S. Food and Drug Administration. Methamphetamine 10 <75 ng/mL N This test was developed and its performance characteristics determined by [facility]. It has not been cleared or approved by the U.S. Food and Drug Administration. Methadone 0 <75 ng/mL N This test was developed and its performance characteristics determined by [facility]. It has not been cleared or approved by the U.S. Food and Drug Administration. Morphine 0 <75 ng/mL N This test was developed and its performance characteristics determined by [facility]. It has not been cleared or approved by the U.S. Food and Drug Administration. Nordiazepam 0 <60 ng/mL N This test was developed and its performance characteristics determined by [facility]. It has not been cleared or approved by the U.S. Food and Drug Administration. Norfentanyl 6 <6 ng/mL H This test was developed and its performance characteristics determined by [facility]. It has not been cleared or approved by the U.S. Food and Drug Administration. Normeperidine 0.0 <37.5 ng/mL N This test was developed and its performance characteristics determined by [facility]. It has not been cleared or approved by the U.S. Food and Drug Administration. O-desmethyltramadol 0 <75 ng/mL N This test was developed and its performance characteristics determined by [facility]. It has not been cleared or approved by the U.S. Food and Drug Administration. Oxazepam 0 <60 ng/mL N This test was developed and its performance characteristics determined by [facility]. It has not been cleared or approved by the U.S. Food and Drug Administration. Oxycodone 0.0 <37.5 ng/mL N This test was developed and its performance characteristics determined by [facility]. It has not been cleared or approved by the U.S. Food and Drug Administration. Oxymorphone 0 <75 ng/mL N This test was developed and its performance characteristics determined by [facility]. It has not been cleared or approved by the U.S. Food and Drug Administration. Phencyclidine 0.0 <7.5 ng/mL N This test w as developed and its performance characteristics determined by [facility]. It has not been cleared or approved by the U.S. Food and Drug Administration. Tapentadol 1.2 <37.5 ng/mL N This test was developed and its performance characteristics determined by [facility]. It has not been cleared or approved by the U.S. Food and Drug Administration. Temazepam 0 <60 ng/mL N This test was developed and its performance characteristics determined by [facility]. It has not been cleared or approved by the U.S. Food and Drug Administration. Tramadol 0 <75 ng/mL N This test was developed and its performance characteristics determined by [facility]. It has not been cleared or approved by the U.S. Food and Drug Administration. Norhydrocodone 440 <75 ng/mL H This test was developed and its performance characteristics determined by [facility]. It has not been cleared or approved by the U.S. Food and Drug Administration. Noroxycodone 0 <38 ng/mL N This test wa s developed and its performance characteristics determined by [facility]. It has not been cleared or approved by the U.S. Food and Drug Administration. Pregabalin 0 <225 ng/mL N This test was developed and its performance characteristics determined by [facility]. It has not been cleared or approved by the U.S. Food and Drug Administration. Gabapentin >57837 <225 ng/mL > This test was developed and its performance characteristics determined by [facility]. It has not been cleared or approved by the U.S. Food and Drug Administration. Benzoylecgonine 0.0 <37.5 ng/mL N This abimbola t was developed and its performance characteristics determined by [facility]. It has not been cleared or approved by the U.S. Food and Drug Administration. 4-Hydroxy Xylazine 0 <25 ng/mL N This t est was developed and its performance characteristics determined by [facility]. It has not been cleared or approved by the U.S. Food and Drug Administration. Tox Results Reviewed date:07/21/2024 11:36:15 AM Interpretation: Performing Lab: Notes/Report: Tox Results Reviewed date:11/10/2024 02:08:00 PM Interpretation: Performing Lab: Notes/Report: Reason For Referral Reason Rectal Bleed COLON Referring Provider First Name Pee Referring Provider Last Name Lorenzaylnora Referring Provider Speciality Family Med icine Referred Organization [facility] Referred Provider Ray Sherman Referred Address [address] [place] Referred Provider Specialty Gastroentero logy General Notes Taisha Godoy 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 04/27/24 Referral Priority Routine Medications Medication SIG (Take, Route, Frequency, Duration) Notes Start Date End Date Status HYDROcodone-Acetaminop hen 5-325 MG Tablet 1 tablet as needed Orally every 6 hrs; Duration: 30 days As needed Not to exceed 4 per day Fill on 11-18-24 11/05/2024 12/18/2024 Active Nitroglycerin 0.4 MG Tablet Sublingual as directed Sublingual as needed Unknown Mounjaro 15 MG/0.5ML Solution Pen-injector 0.5 ml Subcutaneous weekly Unknown Metoprolol Tartrate 25 MG Tablet 1 tablet with food Orally Twice a day Unknown Losartan Potassium 50 MG Tablet 1 tablet Orally Once a day Unknown Levothyroxine Sodium 88 MCG Tablet 1 tablet in the morning on an empty stomach Orally Once a day Unknown Isosorbide Mononitrate ER 30 MG Tablet Extended Release 24 Hour 1 tablet in the morning Orally twice a day Unknown GaviLAX 17 GM Packet 1 packet mixed with 8 ounces of fluid Orally three time a day Unknown Gabapentin 100 MG Capsule 1 capsule Orally Once a day Unknown Fluticasone Propionate 50 MCG/ACT Suspension 1 spray in each nostril as needed Nasally Once a day Unknown FLUoxetine HCl 20 MG Capsule 1 capsule Orally Once a day Unknown HYDROcodone-Acetaminop hen 5-325 MG Tablet 1 tablet as needed Orally every 6 hrs; Duration: 30 days As needed Not to exceed 4 per day Fill on 12-18-24 11/05/2024 01/17/2025 Active Eliquis 2.5 MG Tablet 1 tablet Orally twice daily Unknown Clopidogrel Bisulfate 75 MG Tablet 1 tablet Orally Once a day Unknown Citalopram Hydrobromide 40 MG Tablet 1 tablet Orally Once a day Unknown Carvedilol 6.25 MG Tablet 1 tablet with food Orally Twice a day Unknown busPIRone HCl 5 MG Tablet 1 tablet Orally Twice a day Unknown Tresiba FlexTouch 200 UNIT/ML Solution Pen-injector 3 ml Subcutaneous daily Unknown buPROPion HCl ER (XL) 300 MG Tablet Extended Release 24 Hour 1 tablet in the morning Orally Once a day Unknown traZODone HCl 100 MG Tablet 1 tablet at bedtime Orally Once a day Unknown Bumetanide 2 MG Tablet 1 tablet Orally twice a day Unknown tiZANidine HCl 2 MG Tablet 1 tablet at bedtime as needed Orally Once a day Unknown Atorvastatin Calcium 40 MG Tablet 1 tablet Orally Once a day Unknown Stool Softener 100 MG Capsule 2 capsules Orally twice a day 02/19/2024 Unknown Aspirin 81 81 MG Tablet Delayed Release 1 tablet Orally Once a day Unknown Sevelamer Carbonate 800 MG Tablet 1 tablet with meals Orally Three times a day Unknown RenaPlex-D - Tablet 1 tablet Orally daily Unknown Ranolazine ER 500 MG Tablet Extended Release 12 Hour 1 tablet Orally Twice a day Unknown Promethazine HCl 25 MG Tablet 1 tablet as needed Orally every 12 hrs Unknown Social History Tobacco Use: Social History Observation Description Date Details (start date - stop date) Never Smoker NA - NA Social History Drug/Alcohol: Social Info Question Answer Notes AUDIT-C (Standard) Did you have a drink containing alcohol in the past year? No Points 0 Interpretation Negative Tobacco Use: Social Info Question Answer Notes Tobacco Control (Standard) Tobacco use: Nonsmoker Additional Details Category Social Info Options Details Drugs/Alcohol: Do you smoke marijuana? De nies Do you drink alcohol? No Section Notes: Patient is on disability Patient is on disability Problems Problem Type SNOMED Code ICD Code Onset Dates Problem Status W/U Status Risk Notes Problem Chronic pain (77058333) Other chronic pain (G89.29) Active confirmed Problem Chronic pain syndrome (526281662) Chronic pain syndrome (G89.4) Active confirmed Problem Cervical radiculopathy (84969056) Cervical radiculopathy (M54.12) Active confirmed Problem Lumbar radiculopathy (710054513) Lumbar radiculopathy (M54.16) Active confirmed Problem Long-term current use of drug therapy (612376747) Long-term use of high-risk medication (Z79.899) Active confirmed Problem Abnormal gait (38972294) Abnormality of gait and mobility (R26.9) Active confirmed Problem Atherosclerotic heart disease of [place] coronary artery without angina pectoris (463361652158392 ) Atherosclerotic heart disease of [place] coronary artery without angina pectoris (I25.10) Active confirmed [id number] Description:Patricia nary arteriosclerosis Problem Presence of coronary angioplasty implant and graft (Z95.5) Active confirmed [id number] ed Description:Hist ory of placement of stent for coronary artery disease Problem Essential hypertension (45180268) Essential primary hypertension (I10) Active confirmed [id number] ed Description:Holger gn essential hypertension Vital Signs Heart Rate 82 /min 02/19/2024 Temperature 97.5 degrees Fahrenheit 02/19/2024 Respiratory Rate 18 /min 02/19/2024 Height-cm 165.1 cm 11/05/2024 Oximetry 93 % 02/19/2024 Weight-kg 90.72 kg 11/05/2024 Height 65 in 11/05/2024 Weight 200 lbs 11/05/2024 BMI 33.28 kg/m2 11/05/2024 Encounters Encounter Location Date Provider Diagnosis Migrated_Facility 0 0 03/14/2024 Provider Migration [facility]Facility 0 0 03/15/2024 Provider Migration [facility] [address] [place] [address] 01/16/2024 Shelley Llanes [facility] [address] [place] [address] 02/19/2024 [facility] [address] [place] [address] 02/24/2024 [facility] [address] [place] [address] 02/25/2024 [facility] [address] [place] [address] 03/09/2024 [facility] [address] [address] 11/05/2024 Ajit Silver Lumbar radiculopathy M54.16 [facility] [address] [address] 07/15/2024 Ajit Silver Chronic pain syndrom e G89.4 ; Lumbar radiculopathy M54.16 ; Atherosclerotic heart disease of [place] coronary artery without angina pectoris I25.10 and Long-term use of high-risk medication Z79.899 [facility] [address] [place] [address] 09/02/2024 Ajit Silver Chronic pain syndrom e G89.4 ; Lumbar radiculopathy M54.16 ; Atherosclerotic heart disease of [place] coronary artery without angina pectoris I25.10 and Long-term use of high-risk medication Z79.899 Formerly [facility] [place] [address] [place] [address] 11/05/2024 Elizabeth Canales Chronic pain syndrom e G89.4 ; Cervical radiculopathy M54.12 ; Lumbar radiculopathy M54.16 ; Atherosclerotic heart disease of [place] coronary artery without angina pectoris I25.10 and Long-term use of high-risk medication Z79.899 Formerly [facility] [address] [place] [address] 02/19/2024 Shelley Llanes Rectal bleeding K62. 5 Formerly [facility] [place] [address] [place] [address] 06/24/2024 Ajit Guerrakirill Chronic pain syndrom e G89.4 ; Lumbar radiculopathy M54.16 ; Atherosclerotic heart disease of [place] coronary artery without angina pectoris I25.10 ; Abnormality of gait and mobility R26.9 and Long-term use of high-risk medication Z79.899 Assessments Encounter Date Diagnosis (ICD Code) Assessment Notes Treatment Notes Treatment Clinical Notes Section Notes 02/19/2024 Rectal bleeding (ICD-10 - K62.5) [...] after the colonoscopy. Refer back to PCP. 06/24/2024 Chronic pain syndrome (ICD-10 - G89.4) I had a nice visit with the patient today regarding his chronic pain issues. 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 We discussed treatments moving forward and I would like to at least see some X-rays initially and we will take over prescribing his hydrocodone. We will see him back in about a month and hopefully he'll have some of his issues straightened out from a cardiac standpoint or at least has a plan together. Order lumbar X-rays The patient continues with chronic pain requiring treatment to help restore function and improve quality of life. Risks of opioid therapy as well as interaction of opioids with alcohol, illicit drugs, muscle relaxers, and other sedative medications are reviewed briefly with patient again today. The patient has trialed all other reasonable treatment options and uses the medication to alleviate pain in order to remain active and rest with less pain. No clinically relevant medication side effects are noted. Last UDS and [place] [employer] APPRENTICE reviewed today. Patient is advised that best long-term goals include increased activity, core strengthening, proper weight management, coping strategies, avoidance of painful triggers, and targeted interventional therapy. We will see the patient for routine follow up in accordance with all clinic policies. We did remind patient today of current guidelines to decrease opioid when possible. We will continue to stress nonopioid treatment. 06/24/2024 Lumbar radiculopathy (ICD-10 - M54.16) 07/15/2024 Chronic pain syndrome (ICD-10 - G89.4) I had a nice visit with the patient today regarding his chronic pain issues. He's had a lot going on since his last appointment. He had a myocardial infarction and pneumonia and was in the [facility] for a bit of time. He has now gotten an external defibrillator which has gone off once that he's aware of. Otherwise, we will continue his medications. He had his lumbar X-rays completed but we do not have those results so we will try to track those down before his next appointment. We will continue hsi medications unchanged for now and plan to see him back in about 6 weeks. 07/15/2024 Lumbar radiculopathy (ICD-10 - M54.16) 09/02/2024 Chronic pain syndrome (ICD-10 - G89.4) I had a nice visit with the patient today regarding his chronic pain issues. He had his defibrillator implanted a couple of weeks ago so he's still recovering from that. He is taking the hydrocodone and he does get some relief with it and is hopeful that he will be able to start backing off on that. I told them that he is more than welcome to start utilizing half tablets or skipping doses as he sees fit, so he is going to work on those things. We will see him back in about 2 months and proceed accordingly. 11/05/2024 Chronic pain syndrome (ICD-10 - G89.4) I had a nice discussion with the patient today regarding his chronic pain complaints. He states he is all healed up after his defibrillator placement. He continues with dialysis 3 days a week. He states he still has lower back pain but lately he has been having a lot of neck pain with pain radiating down his right upper extremity. He states he does not recall any triggering event but this has been going on about a month. After discussion he would like to proceed with some physical therapy but would like to do in-home physical therapy as he does not have a vehicle right now. We will get this order sent for him. He feels he is doing reasonably well on his current medication regimen so he will continue that at present level. He denies any other changes since we last seen him or any untoward side effects of the medication. I did recommend lifestyle modifications as well as a bowel regimen. He will return to clinic in 2 months to monitor for treatment effectiveness and compliance. The patient continues with chronic pain requiring treatment to help restore function and improve quality of life. Risks of opioid therapy as well as interaction of opioids with alcohol, illicit drugs, muscle relaxers, and other sedative medications are reviewed briefly with patient again today. The patient has trialed all other reasonable treatment options and uses the medication to alleviate pain in order to remain active and rest with less pain. No clinically relevant medication side effects are noted. Last UDS and [place] [employer] APPRENTICE reviewed today. Patient is advised that best long-term goals include increased activity, core strengthening, proper weight management, coping strategies, avoidance of painful triggers, and targeted interventional therapy. We will see the patient for routine follow up in accordance with all clinic policies. We did remind patient today of current guidelines to decrease opioid when possible. We will continue to stress nonopioid treatment. RECOMMEND URINE TESTING TODAY Urine drug screening will be performed today to monitor compliance with opioid therapy or to serve as a baseline screen for a patient who may be a candidate for opioid therapy in the future, pending UDS results. We will monitor with in-office testing (rapid testing) today and review the results prior to dispensing prescription. All positive results will be sent for quantitative analysis to ensure accuracy and quantify amounts. Any expected positive results that return negative will also be sent for quantitative analysis. Any questionable read or any medication we cannot test for in the office confidently will be sent for quantitative analysis, as well. Patient has been made aware of this policy and agrees to abide by our urine testing policy. 11/05/2024 Cervical radiculopathy (ICD-10 - M54.12) 11/05/2024 Lumbar radiculopathy (ICD-10 - M54.16) 11/05/2024 Lumbar radiculopathy (ICD-10 - M54.16) 09/02/2024 Lumbar radiculopathy (ICD-10 - M54.16) 07/15/2024 Atherosclerotic heart disease of [place] coronary artery without angina pectoris (ICD-10 - I25.10) [id number] Description:Damon ry arteriosclerosis 06/24/2024 Atherosclerotic heart disease of [place] coronary artery without angina pectoris (ICD-10 - I25.10) [id number] Description:Damon ry arteriosclerosis 07/15/2024 Long-term use of high-risk medication (ICD-10 - Z79.899) RECOMMEND URINE TESTING TODAY Urine drug screening will be performed today to monitor compliance with opioid therapy or to serve as a baseline screen for a patient who may be a candidate for opioid therapy in the future, pending UDS results. We will monitor with in-office testing (rapid testing) today and review the results prior to dispensing prescription. All positive results will be sent for quantitative analysis to ensure accuracy and quantify amounts. Any expected positive results that return negative will also be sent for quantitative analysis. Any questionable read or any medication we cannot test for in the office confidently will be sent for quantitative analysis, as well. Patient has been made aware of this policy and agrees to abide by our urine testing policy. 09/02/2024 Atherosclerotic heart disease of [place] coronary artery without angina pectoris (ICD-10 - I25.10) [id number] Description:Damon ry arteriosclerosis 11/05/2024 Atherosclerotic heart disease of [place] coronary artery without angina pectoris (ICD-10 - I25.10) [id number] Description:[place]amon ry arteriosclerosis 06/24/2024 Abnormality of gait and mobility (ICD-10 - R26.9) 11/05/2024 Long-term use of high-risk medication (ICD-10 - Z79.899) 09/02/2024 Long-term use of high-risk medication (ICD-10 - Z79.899) 06/24/2024 Long-term use of high-risk medication (ICD-10 - Z79.899) 02/19/2024 Other Colonoscopy: Before Your Procedure material was printed, Learning About Foods That Are Good Sources of Fiber material was printed 06/24/2024 Other Duane Rodriguez am scribing for Dr. Ajit Silver. I, Dr. Ajit Silver, personally performed the services described in this documentatio n, as scribed by Duane Delcid, and it is both accurate and complete. 07/15/2024 Other Duane Rodriguez am scribing for Dr. Ajit Silver. I, Dr. Ajit Silver, personally performed the services described in this documentation, as scribed by Duane Delcid, and it is both accurate and complete. 09/02/2024 Other Duane Rodriguez am scribing for Dr. Ajit Silver. I, Dr. Ajit Silver, personally performed the services described in this documentation, as scribed by Duane Delcid, and it is both accurate and complete. Plan Of Treatment Pending Test Test Name Order Date Diagnostic Colonoscopy-[id number] 02/19/2024 Next Appt Details Provider Name:Elizabeth verduzco, 01/07/2025 02:20:00 PM, [address] [place], [address], Insurance Providers Payer Name Payer Address Payer Phone Subscriber Number Group Number Insured Name Patient Relationship to Insured Coverage Start Date Coverage End Date [facility] Medicare Advantage - PPO [address] [address] [place] [address] [id number] Bret SMITHA Self - patient is the insured UHC Medicare Dual Complete PPO [address] [address] [place] [address] [id number] SMITHA Queen Self - patient is the insured [place] Medicaid [address] [place] [address] [id number] SMITHA Queen Self - patient is the insured Medical [...] both lower legs for compartme nt syndrome cardiac pacemaker/defibrillator
--- OUTSIDE RECORDS SUMMARY | 2024-12-07 16:32 | XMS_ITS | Encounter Summary ---
Author Organization [facility] [employer] Address [address] [place] [address] Phone Care Team Providers Care Plater Production Name Role Phone Kp Montanez DO Primary Care Provider [phone] Encounter Details Date Type Department Care Team (Late st Contact Info) Description 12/24/2018 Orders Only [facility] [address] [place] [address] Antolin Weiss MD Chronic kidney disease stage 3; Type 2 diabetes mellitus with diabetic chronic kidney disease (HCC) Social History Tobacco Use Types Packs/Day [...] as of this encounter Progress Notes * Pamela Parra NP - 12/24/2018 11:59 PM CDT Please notify that he has had some decline to kidney function. Make sure no new medications, no NSAIDs. Checked for increased need for lasix. Needs to maintain adequate hydration. Keep follow up appointment with Aram 12/30/18. Thanks. documented in this encounter Plan of Treatment Not on file documented as of this encounter Procedures Procedure Name Priority Date/Time Associated Diagnosis Comments URINE ALBUMIN / CREATININE RATIO Routine 12/17/2018 1:55 PM CDT Chronic kidney disease stage 3 Type 2 diabetes mellitus with diabetic chronic kidney disease (HCC) VITAMIN D 25 HYDROXY Routine 12/17/2018 1:55 PM CDT Chronic kidney disease stage 3 CBC Routine 12/17/2018 1:55 PM CDT Chronic kidney disease stage 3 PTH, INTACT Routine 12/17/2018 1:55 PM CDT Chronic kidney disease stage 3 RENAL FUNCTION PANEL Routine 12/17/2018 1:55 PM CDT Chronic kidney disease stage 3 Type 2 diabetes mellitus with diabetic chronic kidney disease (HCC) documented in this encounter Results * Vit D 25 hydroxy (12/17/2018 1:55 PM CDT) Vitamin D, 25-OH, Total 74 ng/mL Blood specimen (specimen) 12/17/2018 1:55 PM CDT Leslie Mckeon MA - 12/17/2018 2:15 PM CDT [facility] [address] [place], [place] [address] Antolin Weiss MD LAB BLOOD ORDERABLES Fi nal Result * PTH, intact (CKD3a) (12/17/2018 1:55 PM CDT) Parathyroid Hormone, Intact 119.3 pg/mL Blood specimen (specimen) 12/17/2018 1:55 PM CDT Leslie Mckeon MA - 12/17/2018 2:15 PM CDT [facility] [address] [place], [place] [address] Antolin Weiss MD LAB BLOOD ORDERABLES Fi nal Result * (ABNORMAL) Urine albumin / creatinine ratio (12/17/2018 1:55 PM CDT) Urine Microalbumin 28 mg/dL Creatinine, Urine Random 76.2 mg/dL Microalb/Creat Ratio 367(A) 30 - 300 mg/g Creat Urine specimen (specimen) 12/17/2018 1:55 PM CDT Antolin Weiss MD LAB URINE ORDERABLES Fi nal Result * CBC (CKD3a) (12/17/2018 1:55 PM CDT) WBC 8.8 K/uL Red Blood Cell Count 4.26 Hemoglobin 12.3 g/dL Hematocrit 36.4 % MCV 85.3 MCH 28.7 MCHC 33.7 RDW 16.4 Platelet Count 301 MPV 7.9 Absolute Neutrophils 5.6 Absolute Lymphocytes 2.1 Absolute Monocytes 0.7 Absolute Eosinophils 0.3 Absolute Basophils 0.1 Neutrophils 63.8 K/uL Lymphocytes 24.5 Monocytes 7.5 Eosinophils 3.0 Basophils 1.2 Blood specimen (specimen) 12/17/2018 1:55 PM CDT Narrative Leslie Benson MA - 12/17/2018 2:15 PM CDT [facility] [address] [place] [address] Antolin Weiss MD LAB BLOOD ORDERABLES Fi nal Result * (ABNORMAL) RFP (CKD3a) (12/17/2018 1:55 PM CDT) Albumin 4.2 3.5 - 5.0 g/dL BUN 40(A) 4 - 21 mg/dL Calcium 9.2 8.7 - 10.7 mg/dL Chloride 102 99 - 108 Bicarbonate (CO2) 21(A) 22 - 30 mmol/L Creatinine 2.00(A) 0.60 - 1.30 mg/dL eGFR 43.0 mL/min/1.7 3m*2 eGFR Non- 36.0 mL/min/1.7 3m*2 Glucose 131 Phosphorus, Serum 3.3 Potassium 4.2 3.4 - 5.5 Sodium 137 137 - 147 Blood specimen (specimen) 12/17/2018 1:55 PM CDT Narrative Leslie Benson MA - 12/17/2018 2:15 PM CDT [facility] [address] [place], [place] [address] us Antolin Weiss MD LAB BLOOD ORDERABLES Fi nal Result documented in this encounter Visit Diagnoses Diagnosis Chronic kidney disease stage 3 (HCC) Type 2 diabetes mellitus with diabetic chronic kidney disease (HCC) documented in this encounter Care Teams Plater Production Relationship Specialty Start Date End Date Kp Montanez DO [address] [place] [address] PCP - General Internal Medicine 01/07/23 documented as of this encounter
--- NOTE | 2024-12-07 16:34 | XRR_ITS ---
PROCEDURE INFORMATION: Exam: XR Chest Exam date and time: 12/07/2024 4:39 PM Age: 54 years old Clinical indication: Pain; Angina pectoris; Additional info: Chest pain TECHNIQUE: Imaging protocol: Radiologic exam of the chest. Views: 1 view. COMPARISON: CR XR chest 1V portable [id number] 08/05/2024 6:56 PM FINDINGS: Tubes, catheters and devices: Redemonstration of the left-sided chest port with catheter tip in the superior vena cava. A pacemaker device is seen again, and its leads are in appropriate position. There are sternal wires consistent with previous sternotomy incision. Lungs: Unremarkable. No consolidation. Pleural spaces: Unremarkable. No pleural effusion. No pneumothorax. Heart/Mediastinum: Redemonstration of coronary stent. Vasculature: Redemonstration of left medial upper arm stent. Bones/joints: Unremarkable. XR/XR chest 1V portable [id number] IMPRESSION: No acute findings.
--- NOTE | 2024-12-07 16:37 | ECG_ITS ---
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 Measurements Intervals Babb Rate: 82 P: -7 CT: 161 QRS: -7 QRSD: 110 T: 55 QT: 401 QTc: 470 Interpretive Statements SINUS RHYTHM POSSIBLE ANTERIOR MYOCARDIAL INFARCTION , OF INDETERMINATE AGE [30 ms Q WAVE IN V3/V4, OR R < 0.2 mV IN V4] INTERPRETATION BASED ON A DEFAULT AGE OF 40 YEARS No previous ECG available for comparison Electronically Signed On 12-07-2024 17:14:04 CDT by Karen Choi M.D. [email or web address]
--- NOTE | 2024-12-07 16:47 | W.ED.CHESTPA ---
HPI - Chest Pain General: Chief Complaint: Chest Pain Stated Complaint: Chest Pain Time Seen by Provider: 12/07/24 16:28 History of Present Illness: 54-year-old male presents emergency room has history of end-stage renal disease and coronary artery disease he has multiple trips to the [employer] last year. Last week he had an episode of chest pain while he was at dialysis he took a single sublingual nitro and it resolved. Then today he had a more intense episode he rated the pain 10 of 10 he took 3 sublingual nitro since that time he is his decrease is down to a 4 out of 10. He did get aspirin and route as well. He is resting comfortably and able to hold a good conversation now. He feels like the pain is increasing again. No recent fever sweats or chills. Associated symptoms: Deny abdominal pain, dyspnea or fever(s) Related Data Home Medications ?Medication ?Instructions ?Recorded ?Confirmed diphenhydramine HCl 25 mg tablet 50 mg PO DAILY PRN Allergy Symptoms 05/02/23 11/13/24 (Benadryl Allergy) insulin lispro 100 unit/mL See Rx Instructions .Route .COMPLEX 05/02/23 11/13/24 subcutaneous pen (Humalog KwikPen (U-100) Insulin) vit B,C-folic ac 800 mcg-zinc 12.5 1 tab PO BEDTIME 10/29/23 11/13/24 mg-selen-D3 2,000 unit-vit E tablet (RenaPlex-D) tamsulosin 0.4 mg capsule 0.4 mg PO DAILY 03/24/24 11/13/24 tizanidine 2 mg tablet 2 mg PO BID 03/24/24 11/13/24 bumetanide 2 mg tablet 2 mg PO BID 04/15/24 11/13/24 carvedilol 6.25 mg tablet 6.25 mg PO BID 04/21/24 11/13/24 hydroxyzine HCl 50 mg tablet 100 mg PO BEDTIME PRN insomnia 04/21/24 11/13/24 promethazine 25 mg tablet 25 mg PO Q6H PRN Nausea 04/21/24 11/13/24 sevelamer carbonate 800 mg tablet 800 mg PO BID 05/27/24 11/13/24 acetaminophen 500 mg tablet 1,000 mg PO QID PRN Pain 06/04/24 11/13/24 (Tylenol Extra Strength) hydrocodone 5 mg-acetaminophen 325 1 tab PO Q6H 06/16/24 11/13/24 mg tablet metoprolol tartrate 25 mg tablet 12.5 mg PO BID 06/16/24 11/13/24 Previous Rx's ?Medication ?Instructions ?Recorded atorvastatin 40 mg tablet 40 mg PO QAM #90 tabs 10/25/22 nitroglycerin 0.4 mg sublingual 0.4 mg sublingual Q5M PRN Chest 08/27/23 tablet (Nitrostat) Pain #25 tabs isosorbide mononitrate 30 mg See Rx Instructions .Route 10/03/23 tablet,extended release 24 hr .COMPLEX #30 tabs aspirin 81 mg tablet,delayed 81 mg PO DAILY #90 tabs 10/30/23 release pantoprazole 40 mg tablet,delayed 40 mg PO DAILY #30 tabs 03/26/24 release colchicine 0.6 mg tablet 0.3 mg (1/2 x 0.6 mg) PO DAILY #60 04/08/24 tabs bupropion HCl 300 mg 24 hr tablet, 300 mg PO QAM #30 tabs 04/20/24 extended release buspirone 10 mg tablet 10 mg PO BID #60 tabs 04/20/24 fluoxetine 40 mg capsule 40 mg PO QAM #30 caps 04/20/24 trazodone 100 mg tablet 300 mg (3 x 100 mg) PO BEDTIME PRN 04/20/24 insomia #90 tabs mupirocin 2 % topical ointment 1 applic topical BID #15 grams 11/09/24 (Centany) tirzepatide 15 mg/0.5 mL See Rx Instructions .Route 11/18/24 subcutaneous pen injector .COMPLEX #2 mL (Mounjaro) ranolazine 1,000 mg See Rx Instructions .Route 11/23/24 tablet,extended release,12 hr .COMPLEX #180 tabs Allergies Allergy/AdvReac Type Severity Reaction Status Date / Time Iodinated Contrast Media Allergy Severe ALGY-Difficulty Verified 11/13/24 09:33 Breathing iodine Allergy Severe ALGY-Difficulty Verified 11/13/24 09:33 Breathing metoclopramide (From Reglan) Allergy Severe ALGY-Difficulty Verified 11/13/24 09:33 Breathing nalbuphine (From Nubain) Allergy Severe ADR-Diarrhe Verified 11/13/24 09:33 a naproxen (From Naprosyn) Allergy Severe ADR-Vomitin Verified 11/13/24 09:33 g Sulfa (Sulfonamide Allergy Severe ALGY-Difficulty Verified 11/13/24 09:33 Antibiotics) Breathing ketorolac Allergy Intermediate ADR-Nausea Verified 11/13/24 09:33 ondansetron (From Zofran) Allergy Intermediate ADR-Abdominal Verified 11/13/24 09:33 Pain prochlorperazine (From Allergy Intermediate ADR-Irritab Verified 11/13/24 09:33 Compazine) le codeine AdvReac Severe ALGY-Anaphy Verified 11/13/24 09:33 laxis haloperidol (From Haldol) AdvReac Intermediate ADR-Irritab Verified 11/13/24 09:33 le Review of Systems Const: Denies: fever(s) or chills Card: Denies: chest pain Resp: Denies: dyspnea GI: Denies: abdominal pain : Denies: dysuria, urinary frequency or urinary urgency Musc: Denies: neck pain or back pain Skin/Breast: Denies: rash PFSH ED PFSH: Medical History Hypothyroidism Generalized anxiety disorder Major depressive disorder, recurrent severe without psychotic features Pericarditis Elevated troponin Essential hypertension Essential hypertension ESRD (end stage renal disease) Hypertension Psychiatric care 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 mellitus Chronic renal failure Chest pain Chest pain CRF (chronic renal failure) Chronic right SI joint pain Chronic systolic heart failure UTI (urinary tract infection) Peripheral arterial disease PVD (peripheral vascular disease) Worsening angina Angina at rest Chest pain ESRD (end stage renal disease) Uremic encephalopathy ESRD (end stage renal disease) D-dimer, elevated Acute on chronic congestive heart failure History of pulmonary embolism Diabetes Acute kidney injury superimposed on CKD GERD (gastroesophageal reflux disease) Alcohol use disorder, moderate, in sustained remission DVT (deep venous thrombosis) (~03/2020) Proximal left subclavian, basilic and brachial veins, started eliquis this stay, felt present prior to admission Chronic kidney disease -baseline Cr appears to be around 1.5 Atherosclerotic heart disease of [place] coronary artery with other forms of angina pectoris hx of CAD with prior stenting of proximal LAD, LCx, RCA Ischemic cardiomyopathy Onychodystrophy Chronic anticoagulation Eliquis Osteoarthritis of spine Hypertension Hyperlipidemia Diabetes Depression Anemia Foot drop, left H/O acute myocardial infarction H/O deep venous thrombosis developed compartment syndrome Surgical History Peritoneal dialysis catheter in situ (06/15/21) History of appendectomy 1995 History of excision of mass 06/08/2019: Subcutaneous mass on back History of removal of Port-a-Cath Port-A-Cath in place H/O vasectomy Hx of cholecystectomy History of coronary artery stent placement 5x H/O skin graft History of inguinal hernia repair, bilateral 2000 H/O removal of testicle left H/O colonoscopy (11/14/20) 08/2015 H/O esophagogastroduodenoscopy (11/14/20) 08/2015 Family History Grandfather Cancer skin cancer Parkinson disease Brother Hypertension Father Heart disease Mother Hypertension Stroke Aneurysm Grandmother Aneurysm Other Crohn's disease Denies family history of Anesthesia complication Bleeding disorder Social History Smoking and tobacco/nicotine status: never used tobacco/nicotine Second hand smoke exposure: No Alcohol intake: former Year of sobriety/quit date alcohol: 2015 Former alcohol use details: Only holidays - last use 05.19.2015 Substance/Drug Use: never Adopted: No Caregiver/support person: No Lives independently: Yes Household members: spouse Housing: Apartment Marital status: Number of children: 2 Number of grandchildren: 0 Highest education level completed: High School Graduate service: No Current occupational status: disabled Pets and animals: Yes Pets & animals: dog(s) Leisure activites: games and other Leisure activities details: watching TV Sexually active: Yes Do you think of yourself as: Straight/Heterosexual Current gender identity: Male Shannon/Hinduism: Hoahaoism Special shannon needs: No Agree to transfusion: Yes Physical Exam Const: COMMON NORMALS: no acute distress GENERAL APPEARANCE: cooperative and comfortable ORIENTATION/CONSCIOUSNESS: Yes awake, Yes oriented to person, Yes oriented to place and Yes oriented to time HENMT: COMMON NORMALS: normocephalic, atraumatic and hearing grossly normal bilaterally HEAD & SCALP: normocephalic and atraumatic Resp: COMMON NORMALS: normal respiratory effort, No retractions, No use of accessory muscles and clear to auscultation bilaterally AUSCULTATION: clear to auscultation bilaterally Cardio: COMMON NORMALS: regular rate, regular rhythm and No murmurs present (Cardio) RATE: regular rate RHYTHM: regular rhythm GI: COMMON NORMALS: Soft to palpation and No hepatosplenomegaly present AUSCULTATION: Yes normoactive bowel sounds PALPATION: Yes Soft to palpation, No Tenderness to palpation present (GI), No Guarding due to palpation present (GI) and Yes No hepatosplenomegaly present Extremity: COMMON NORMALS: normal to inspection, capillary refill normal, no clubbing, cyanosis or edema, no calf tenderness and no pedal edema Neuro: SENSORIUM/ORIENTATION: Yes oriented to person, Yes oriented to place and Yes oriented to time Skin: COMMON NORMALS: no rashes or lesions noted GENERAL SKIN EXAM: no rashes or lesions noted Course Vital Signs: Vital signs: Vital Signs Temperature 98.1 F 12/07/24 16:31 Pulse Rate 82 12/07/24 16:31 Respiratory Rate 16 12/07/24 16:31 Blood Pressure 161/106 12/07/24 16:31 Pulse Oximetry 96 12/07/24 16:31 Oxygen Delivery Me thod Room Air 12/07/24 16:31 Discharge Plan Discharge Condition: Stable Prescriptions: No Action trazodone 100 mg tablet 300 mg PO BEDTIME PRN (Reason: insomia ) Qty: 90 11RF bupropion HCl 300 mg tablet extended release 24 hr 300 mg PO QAM Qty: 30 11RF buspirone 10 mg tablet 10 mg PO BID Qty: 60 11RF fluoxetine 40 mg capsule 40 mg PO QAM Qty: 30 11RF colchicine 0.6 mg tablet 0.3 mg PO DAILY Qty: 60 0RF mupirocin [Centany] 2 % ointment 1 applic topical BID Qty: 15 2RF atorvastatin 40 mg tablet 40 mg PO QAM Qty: 90 2RF nitroglycerin [Nitrostat] 0.4 mg tablet, sublingual 0.4 mg SUBLINGUAL Q5M PRN (Reason: Chest Pain) Qty: 25 2RF Rx Instructions: do not exceed 3 doses per episode Mounjaro 15 mg/0.5 mL pen injector See Rx Instructions .ROUTE .COMPLEX Qty: 2 2RF Dose Instruction: inject 15mg (0.5ml) SUBCUTANEOUSLY EVERY 7 DAYS Rx Instructions: inject 15mg (0.5ml) SUBCUTANEOUSLY EVERY 7 DAYS ranolazine 1,000 mg tablet extended release 12 hr See Rx Instructions .ROUTE .COMPLEX Qty: 180 3RF Dose Instruction: TAKE 1 TABLET BY MOUTH TWICE DAILY Rx Instructions: TAKE 1 TABLET BY MOUTH TWICE DAILY isosorbide mononitrate 30 mg tablet extended release 24 hr See Rx Instructions .ROUTE .COMPLEX Qty: 30 1RF Rx Instructions: Take 30 mg daily, do not take on dialysis days tizanidine 2 mg tablet 2 mg PO BID tamsulosin 0.4 mg capsule 0.4 mg PO DAILY pantoprazole 40 mg Tablet,Delayed Release (Dr/Ec) 40 mg PO DAILY Qty: 30 0RF carvedilol 6.25 mg tablet 6.25 mg PO BID promethazine 25 mg tablet 25 mg PO Q6H PRN (Reason: Nausea) hydroxyzine HCl 50 mg tablet 100 mg PO BEDTIME PRN (Reason: insomnia) diphenhydramine HCl [Benadryl Allergy] 25 mg Tablet 50 mg PO DAILY PRN (Reason: Allergy Symptoms) insulin lispro [Humalog KwikPen Insulin] 100 unit/mL insulin pen See Rx Instructions .ROUTE .COMPLEX Rx Instructions: Sliding scale subcutaneously twice a day as needed. RenaPlex-D 800 mcg-12.5 mg -2,000 unit tablet 1 tab PO BEDTIME aspirin 81 mg Tablet,Delayed Release (Dr/Ec) 81 mg PO DAILY Qty: 90 3RF bumetanide 2 mg tablet 2 mg PO BID sevelamer carbonate 800 mg tablet 800 mg PO BID Rx Instructions: must administer with a meal/food acetaminophen [Tylenol Extra Strength] 500 mg Tablet 1,000 mg PO QID PRN (Reason: Pain) hydrocodone-acetaminophen 5-325 mg tablet 1 tab PO Q6H metoprolol tartrate 25 mg tablet 12.5 mg PO BID Referrals: Dez Evans MD [Primary Care Provider, Family Practice] Print Language: Nepalese Coding Level of Care Code ED [employer] for [employer] [facility]
[2024-12-07] MEDS: morphine 4 mg/mL SDV 1 mL IVP (17:06)
[2024-12-07 17:44] LABS: Hematocrit 34.1 % (37-53); Hemoglobin 11.50 g/dL (11.27-16.99); Mean Corpuscular HGB Conc 33.7 g/dL (30-55); Mean Corpuscular Hemoglobin 32.3 pg (27-33); Mean Corpuscular Volume 95.8 fl (82-101); Nucleated Red Blood Cells % 0 %; Platelet Count 208 10^3/cmm (157-399); Red Blood Count 3.56 10^6/uL (3.85-5.65); White Blood Count 8.18 10^3/uL (3.29-11.43)
[2024-12-07 18:17] LABS: Troponin(5th) Baseline 52 ng/L (0-15)
[2024-12-07 18:19] LABS: Alanine Aminotransferase 11 U/L (0-41); Albumin Level 3.9 g/dL (3.5-5.2); Alkaline Phosphatase 98 U/L (40-130); Blood Urea Nitrogen 29 mg/dL (6-20); Calcium 8.6 mg/dL (8.5-10.5); Carbon Dioxide 23 mmol/L (22-29); Chloride 102 mmol/L (98-107); Creatinine Clr Calc Pharmacy 26.4183; Globulin 2.0 g/dL (1.3-4.6); Glucose 119 mg/dL (65-115); Osmolality Calculated 297 mOsm/kg (285-295); Sodium 140 mmol/L (136-145); Total Protein 5.9 g/dL (6.6-8.7)
[2024-12-07 18:22] LABS: Anion Gap 19.2 (5-19); Potassium 4.2 mmol/L (3.5-5.1)
[2024-12-07 18:23] LABS: Aspartate Amino Transferase 19 U/L (0-40)
[2024-12-07] MEDS: lidocaine 2% viscous 15 ML, aluminum-mag hydrox-simethicon 30 ML, sucralfate oral liq 1 GM PO (18:35)
--- NOTE | 2024-12-07 18:37 | ECG_ITS ---
[facility] Test Date: 2024-12-07 Pat Name: Rei Queen Department: Room: Gender: Male Card Doffer: : 1970 Requested By: Timo Hart Order Number: [id number] Reading MD: Measurements Intervals [place] Rate: 81 P: 7 MD: 202 QRS: -18 QRSD: 97 T: 59 QT: 373 QTc: 434 Interpretive Statements SINUS RHYTHM ANTEROSEPTAL MYOCARDIAL INFARCTION , PROBABLY OLD [40+ ms Q WAVE IN V1-V4] [email or web address]
[2024-12-07 19:51] LABS: Troponin 5 2HR 50.77 ng/L (0-15)
[2024-12-07 20:01] LABS: Troponin 5 2HR Delta -1.23 ABS# (0-10)
--- NOTE | 2024-12-07 22:19 | PM.HP ---
Providers/Chief Complaint Primary Care Provider: Dez Evans MD Chief Complaint: Chest Pain History of Present Illness Rei Queen II is a 54 year old male with past medical history of CAD and multiple stents, most recently placed in May 2024, history of DVT on Eliquis, diabetes mellitus, CKD on maintenance hemodialysis Saturday. Patient presents to the emergency room today complaining of chest pain. States that pain is located on the left side of the chest, radiating along the chest wall into the back and into the left shoulder and neck. States that this feels similar to his prior SD. He took 3 nitros sublingually prior to coming to the emergency room but did not think this has made a significant difference in his pain today. EG does not show any acute ST-T wave changes. Baseline troponin today is at 52, similar to October 2024 and July 2024, 2-hour trending down to 50.7. Patient had a recent cardiac stress test on December 02, 2024 which had shown large areas of prior infarct in the distribution of all 3 coronary arteries without significant ischemia. LV systolic function was noted to be reduced with an EF of 34%. Prior echocardiogram from March 2024 estimated ejection fraction at 40% with mid to distal anterior wall and apical hypokinesia. Patient states he has been having uncontrolled blood pressure over the past week. At dialysis a week ago he was noted to have a systolic over 200 mmHg. There has been no recent change in his usual medications. His medication list needs to be reconciled. Recent cardiology outpatient notes states that patient is on Plavix and Eliquis which is confirmed by the patient high doses of 75 mg daily and 2.5 mg p.o. twice daily. These medications are not noted on his current MAR, so the medications will need to be confirmed with pharmacy in the morning. Patient states that morphine and Dilaudid appear to help with his cardiac chest pain typically. Review of Systems General: Reports: 10 or more systems reviewed and unremarkable except in HPI and below Const: Denies: fever(s), chills or body aches Eyes: Denies: change in vision, blurry vision or photophobia ENMT: Reports: hoarseness; Denies: throat pain, enlarged tonsils, odynophagia or nasal congestion Card: Denies: chest pain, palpitations, irregular heart rhythm, edema, swelling of feet/ankles, lightheadedness, pre-syncope, dyspnea on exertion or orthopnea Resp: Denies: dyspnea, productive cough, non-productive cough, wheezing, stridor, pain on inspiration, change in phlegm color, hemoptysis or chest congestion GI: Denies: abdominal pain, nausea, vomiting, hematemesis, coffee ground emesis, dysphagia, heartburn, diarrhea, constipation, GI cramping, change in stool character, hematochezia or melena : Denies: flank pain, dysuria, urinary frequency, urinary urgency, urinary hesitancy or hematuria Musc: Denies: neck pain, back pain, extremity pain, joint swelling, joint warmth or deformity Neuro: Denies: headache(s), numbness in extremities, weakness in extremities, sensory changes, difficulty walking, frequent falls, dizziness, vertigo, behavioral changes, Slurred speech present or seizure-like activity Psych: Denies: anxiety, depression, suicidal ideation or homicidal ideation Endo: Denies: polyuria, polydipsia, tired all the time, cold intolerance or hot flashes Dewey/Lymph: Denies: easy bruising or easy bleeding Medications/Allergies Home Medications ?Medication ?Instructions ?Recorded ?Confirmed ?Last Taken ?Type atorvastatin 40 mg tablet 40 mg PO QAM #90 tabs 10/25/22 11/13/24 06/03/24 Rx diphenhydramine HCl 25 mg tablet 50 mg PO DAILY PRN Allergy Symptoms 05/02/23 11/13/24 03/23/24 History (Benadryl Allergy) insulin lispro 100 unit/mL See Rx Instructions .Route .COMPLEX 05/02/23 11/13/24 05/07/24 History subcutaneous pen (Humalog KwikPen (U-100) Insulin) nitroglycerin 0.4 mg sublingual 0.4 mg sublingual Q5M PRN Chest 08/27/23 11/13/24 06/04/24 Rx tablet (Nitrostat) Pain #25 tabs isosorbide mononitrate 30 mg See Rx Instructions .Route 10/03/23 11/13/24 05/07/24 Rx tablet,extended release 24 hr .COMPLEX #30 tabs vit B,C-folic ac 800 mcg-zinc 12.5 1 tab PO BEDTIME 10/29/23 11/13/24 06/03/24 History mg-selen-D3 2,000 unit-vit E tablet (RenaPlex-D) aspirin 81 mg tablet,delayed 81 mg PO DAILY #90 tabs 10/30/23 11/13/24 05/07/24 Rx release tamsulosin 0.4 mg capsule 0.4 mg PO DAILY 03/24/24 11/13/24 06/03/24 History tizanidine 2 mg tablet 2 mg PO BID 03/24/24 11/13/24 06/03/24 History pantoprazole 40 mg tablet,delayed 40 mg PO DAILY #30 tabs 03/26/24 11/13/24 06/03/24 Rx release colchicine 0.6 mg tablet 0.3 mg (1/2 x 0.6 mg) PO DAILY #60 04/08/24 11/13/24 06/03/24 Rx tabs bumetanide 2 mg tablet 2 mg PO BID 04/15/24 11/13/24 06/03/24 History bupropion HCl 300 mg 24 hr tablet, 300 mg PO QAM #30 tabs 04/20/24 11/13/24 06/03/24 Rx extended release buspirone 10 mg tablet 10 mg PO BID #60 tabs 04/20/24 11/13/24 06/03/24 Rx fluoxetine 40 mg capsule 40 mg PO QAM #30 caps 04/20/24 11/13/24 06/03/24 Rx trazodone 100 mg tablet 300 mg (3 x 100 mg) PO BEDTIME PRN 04/20/24 11/13/24 05/06/24 Rx insomia #90 tabs carvedilol 6.25 mg tablet 6.25 mg PO BID 04/21/24 11/13/24 06/03/24 History hydroxyzine HCl 50 mg tablet 100 mg PO BEDTIME PRN insomnia 04/21/24 11/13/24 06/03/24 History promethazine 25 mg tablet 25 mg PO Q6H PRN Nausea 04/21/24 11/13/24 Unknown History sevelamer carbonate 800 mg tablet 800 mg PO BID 05/27/24 11/13/24 06/03/24 History acetaminophen 500 mg tablet 1,000 mg PO QID PRN Pain 06/04/24 11/13/24 Unknown History (Tylenol Extra Strength) hydrocodone 5 mg-acetaminophen 325 1 tab PO Q6H 06/16/24 11/13/24 Unknown History mg tablet metoprolol tartrate 25 mg tablet 12.5 mg PO BID 06/16/24 11/13/24 Unknown History mupirocin 2 % topical ointment 1 applic topical BID #15 grams 11/09/24 11/11/24 Unknown Rx (Centany) tirzepatide 15 mg/0.5 mL See Rx Instructions .Route 11/18/24 Unknown Rx subcutaneous pen injector .COMPLEX #2 mL (Mounjaro) ranolazine 1,000 mg See Rx Instructions .Route 11/23/24 Unknown Rx tablet,extended release,12 hr .COMPLEX #180 tabs Allergies Allergy/AdvReac Type Severity Reaction Status Date / Time Iodinated Contrast Media Allergy Severe ALGY-Difficulty Verified 11/13/24 09:33 Breathing iodine Allergy Severe ALGY-Difficulty Verified 11/13/24 09:33 Breathing metoclopramide (From Reglan) Allergy Severe ALGY-Difficulty Verified 11/13/24 09:33 Breathing nalbuphine (From Nubain) Allergy Severe ADR-Diarrhe Verified 11/13/24 09:33 a naproxen (From Naprosyn) Allergy Severe ADR-Vomitin Verified 11/13/24 09:33 g Sulfa (Sulfonamide Allergy Severe ALGY-Difficulty Verified 11/13/24 09:33 Antibiotics) Breathing ketorolac Allergy Intermediate ADR-Nausea Verified 11/13/24 09:33 ondansetron (From Zofran) Allergy Intermediate ADR-Abdominal Verified 11/13/24 09:33 Pain prochlorperazine (From Allergy Intermediate ADR-Irritab Verified 11/13/24 09:33 Compazine) le codeine AdvReac Severe ALGY-Anaphy Verified 11/13/24 09:33 laxis haloperidol (From Haldol) AdvReac Intermediate ADR-Irritab Verified 11/13/24 09:33 le PFSH Acute PFSH: Medical History Hypothyroidism Generalized anxiety disorder Major depressive disorder, recurrent severe without psychotic features Pericarditis Elevated troponin Essential hypertension Essential hypertension ESRD (end stage renal disease) Hypertension Psychiatric care 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 mellitus Chronic renal failure Chest pain Chest pain CRF (chronic renal failure) Chronic right SI joint pain Chronic systolic heart failure UTI (urinary tract infection) Peripheral arterial disease PVD (peripheral vascular disease) Worsening angina Angina at rest Chest pain ESRD (end stage renal disease) Uremic encephalopathy ESRD (end stage renal disease) D-dimer, elevated Acute on chronic congestive heart failure History of pulmonary embolism Diabetes Acute kidney injury superimposed on CKD GERD (gastroesophageal reflux disease) Alcohol use disorder, moderate, in sustained remission DVT (deep venous thrombosis) (~03/2020) Proximal left subclavian, basilic and brachial veins, started eliquis this stay, felt present prior to admission Chronic kidney disease -baseline Cr appears to be around 1.5 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 with other forms of angina pectoris hx of CAD with prior stenting of proximal LAD, LCx, RCA Ischemic cardiomyopathy Onychodystrophy Chronic anticoagulation Eliquis Osteoarthritis of spine Hypertension Hyperlipidemia Diabetes Depression Anemia Foot drop, left H/O acute myocardial infarction H/O deep venous thrombosis developed compartment syndrome Surgical History Peritoneal dialysis catheter in situ (06/15/21) History of appendectomy 1995 History of excision of mass 06/08/2019: Subcutaneous mass on back History of removal of Port-a-Cath Port-A-Cath in place H/O vasectomy Hx of cholecystectomy History of coronary artery stent placement 5x H/O skin graft History of inguinal hernia repair, bilateral 2000 H/O removal of testicle left H/O colonoscopy (11/14/20) 08/2015 H/O esophagogastroduodenoscopy (11/14/20) 08/2015 Family History Grandfather Cancer skin cancer Parkinson disease Brother Hypertension Father Heart disease Mother Hypertension Stroke Aneurysm Grandmother Aneurysm Other Crohn's disease Denies family history of Anesthesia complication Bleeding disorder Social History Smoking and tobacco/nicotine status: never used tobacco/nicotine Second hand smoke exposure: No Alcohol intake: former Year of sobriety/quit date alcohol: 2016 Former alcohol use details: Only holidays - last use 05.19.2015 Substance/Drug Use: never Adopted: No Caregiver/support person: No Lives independently: Yes Household members: spouse Housing: Apartment Marital status: Number of children: 2 Number of grandchildren: 0 Highest education level completed: High School Graduate service: No Current occupational status: disabled Pets and animals: Yes Pets & animals: dog(s) Leisure activites: games and other Leisure activities details: watching TV Sexually active: Yes Do you think of yourself as: Straight/Heterosexual Current gender identity: Male Shannon/[employer]: [employer] Special shannon needs: No Agree to transfusion: Yes Vitals/I&O/Wt Last Vital Signs Temp 98.1 F 12/07/24 16:31 Pulse 80 12/07/24 18:37 Resp 16 12/07/24 18:37 BP 179/100 12/07/24 18:37 Pulse Ox 95 12/07/24 18:37 O2 Del Method Room Air 12/07/24 16:31 12/07/24 12/07/24 12/07/24 06:59 14:59 22:59 Intake Total 0 / 0 Balance 0 / 0 Weight last 48 hrs Weight 88.904 kg Physical Exam Narrative: General: No acute distress, AO x3 HEENT: PERRLA, pupils bilaterally equal and reactive, pallors not present Chest: Normal vesicular breath sounds, no added sounds, equal good air entry bilaterally CVS: S1-S2 regular, no murmurs, no tachycardia, no gallops, no rubs Abdomen: Soft, nontender, no organomegaly, bowel sounds present Neuro: No focal deficits, no facial deformity, AO x3, power 5/5 in all limbs Data 12/07/24 17:15 12/07/24 17:15 Other Labs: Radiology Impressions Chest X-Ray 12/07/24 16:34 IMPRESSION: No acute findings. Laboratory Results WBC 8.18 10^3/uL (3.29-11.43) 12/07/24 17:15 RBC 3.56 10^6/uL (3.85-5.65) L 12/07/24 17:15 Hgb 11.50 g/dL (11.27-16.99) 12/07/24 17:15 Hct 34.1 % (37-53) L 12/07/24 17:15 MCV 95.8 fl (82-101) 12/07/24 17:15 MCH 32.3 pg (27-33) 12/07/24 17:15 MCHC 33.7 g/dL (30-55) 12/07/24 17:15 RDW 13.6 % (12.1-15.1) 12/07/24 17:15 Plt Count 208 10^3/cmm (157-399) 12/07/24 17:15 MPV 9.6 fL (7.4-10.4) 12/07/24 17:15 Neut % (Auto) 74.1 % 12/07/24 17:15 Lymph % (Auto) 15.4 % 12/07/24 17:15 Stephens % (Auto) 8.2 % 12/07/24 17:15 Eos % (Auto) 1.2 % 12/07/24 17:15 Baso % (Auto) 0.7 % 12/07/24 17:15 Neut # (Auto) 6.06 10^3/uL (1.8-7.7) 12/07/24 17:15 Lymph # (Auto) 1.3 10^3/uL (0.8-4.8) 12/07/24 17:15 Stephens # (Auto) 0.7 10^3/uL (0.2-0.9) 12/07/24 17:15 Eos # (Auto) 0.1 10^3/uL (0.0-0.8) 12/07/24 17:15 Baso # (Auto) 0.1 10^3/uL (0.0-0.1) 12/07/24 17:15 Nucleated RBC % (auto) 0 % 12/07/24 17:15 Nucleated RBCs # 0.0 /100WBC 12/07/24 17:15 Sodium 140 mmol/L (136-145) 12/07/24 17:15 Potassium 4.2 mmol/L (3.5-5.1) 12/07/24 17:15 Chloride 102 mmol/L (98-107) 12/07/24 17:15 Carbon Dioxide 23 mmol/L (22-29) 12/07/24 17:15 Anion Gap 19.2 (5-19) H 12/07/24 17:15 BUN 29 mg/dL (6-20) H 12/07/24 17:15 Creatinine 3.2 mg/dL (0.7-1.2) H 12/07/24 17:15 GFR Calculation 20.2 mL/min (90-130) L 12/07/24 17:15 Glucose 119 mg/dL (65-115) H 12/07/24 17:15 Calculated Osmolality 297 mOsm/kg (285-295) H 12/07/24 17:15 Calcium 8.6 mg/dL (8.5-10.5) 12/07/24 17:15 Total Bilirubin 0.5 mg/dL (0.15-1.2) 12/07/24 17:15 AST 19 U/L (0-40) 12/07/24 17:15 ALT 11 U/L (0-41) 12/07/24 17:15 Alkaline Phosphatase 98 U/L (40-130) 12/07/24 17:15 Troponin T Baseline 52 ng/L (0-15) H 12/07/24 17:15 Troponin T 120 Minute 50.77 ng/L (0-15) H 12/07/24 19:21 Delta Troponin T -1.23 ABS# (0-10) L 12/07/24 19:21 Total Protein 5.9 g/dL (6.6-8.7) L 12/07/24 17:15 Albumin 3.9 g/dL (3.5-5.2) 12/07/24 17:15 Globulin 2.0 g/dL (1.3-4.6) 12/07/24 17:15 A&P Assessment and plan 1. Chest pain: 54-year-old male with past medical history as noted above presenting to the ER with complaints of chest pain not relieved by sublingual nitro. He reports pain in the left chest radiating into the shoulder and left chest wall. He has recently undergone stress test 1 week ago which showed abnormal myocardial perfusion imaging with areas of prior infarct in the distribution of all 3 coronary arteries. No significant ischemia was noted. LV systolic function was reduced at 34%, prior echocardiogram from March noted this to be at 40%. EKG without any new ST-T wave changes Baseline creatinine at 52, downtrending at 50 at 2 hours. Awaiting 6-hour trend. This appears to be similar to his prior troponin numbers from July and October 2024. Patient is chronically on Imdur and ranolazine. Will place nitro paste 1 inch every 6 hours and continue ranolazine for now. If chest pain persists in spite of these measures will likely need to add nitroglycerin infusion. As needed morphine for pain control. Cardiology has been consulted from the emergency room 2. DM2 (diabetes mellitus, type 2): Insulin sliding scale 3. Stage 5 chronic kidney disease: Consult nephrology for maintenance hemodialysis while in the hospital 4. Uncontrolled hypertension: At the time of this assessment his blood pressure is 179/100 mmHg Denies any recent change in his medication doses. States that at dialysis last week his systolic blood pressure was over 200 mmHg. Adding on Nitropaste as above. Additionally add hydralazine 10 mg IV every 4 hours for systolic pressure greater than 160. Depending on the trend will likely need to add oral anti-hypertensives over the next 24-hour. Plan: DVT prophylaxis: Kareem Full code PDMP PDMP Reviewed: Not Reviewed Attestations Medical Necessity Statement*: Less than 2 midnight stay is currently anticipated Coding Level of Care Code Acute Code for Chg Fwd High MDM includes number and complexity of problems actively addressed during encounter, amount and/or complexity of data reviewed/ordered and described risk of complication, morbidity or mortality of management as documented Diagnoses Chest pain R07.9 DM2 (diabetes mellitus, type 2) E11.9 Stage 5 chronic kidney disease N18.5 Uncontrolled hypertension I10
--- NOTE | 2024-12-07 22:34 | ECG_ITS ---
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
[2024-12-07] MEDS: nitroglycerin 1 gm/inch oint Pkt 1 INCH TOPICAL (23:17)
[2024-12-07] MEDS: ranolazine (12HR) 500 mg Tablet 1000 MG PO (23:17)
[2024-12-07] MEDS: morphine 4 mg/mL SDV 1 mL 2 MG IVP (23:17)
[2024-12-07 23:48] LABS: Troponin 5 6HR 56.30 ng/L (0-15); Troponin 5 6HR Delta 4.30 ng/L (0-12)
[2024-12-08] VITALS (16 sets, daily range): BP systolic 109–182; BP diastolic 45–96; PULSE 67–90; RESP 14–20; TEMP 36.3–36.8; O2SAT 90–97
[2024-12-08 02:32] LABS: Hematocrit 34.2 % (37-53); Hemoglobin 11.70 g/dL (11.27-16.99); Mean Corpuscular HGB Conc 34.2 g/dL (30-55); Mean Corpuscular Hemoglobin 32.3 pg (27-33); Mean Corpuscular Volume 94.5 fl (82-101); Nucleated Red Blood Cells % 0 %; Platelet Count 206 10^3/cmm (157-399); Red Blood Count 3.62 10^6/uL (3.85-5.65); White Blood Count 8.87 10^3/uL (3.29-11.43)
[2024-12-08 02:50] LABS: Alanine Aminotransferase 8 U/L (0-41); Albumin Level 3.6 g/dL (3.5-5.2); Alkaline Phosphatase 95 U/L (40-130); Anion Gap 15.4 (5-19); Aspartate Amino Transferase 14 U/L (0-40); Blood Urea Nitrogen 29 mg/dL (6-20); Calcium 8.9 mg/dL (8.5-10.5); Carbon Dioxide 26 mmol/L (22-29); Chloride 102 mmol/L (98-107); Creatinine Clr Calc Pharmacy 26.4183; Globulin 2.5 g/dL (1.3-4.6); Glucose 69 mg/dL (65-115); Magnesium 1.8 mg/dL (1.7-2.3); Osmolality Calculated 294 mOsm/kg (285-295); Potassium 3.4 mmol/L (3.5-5.1); Sodium 140 mmol/L (136-145); Total Protein 6.1 g/dL (6.6-8.7)
--- OUTSIDE RECORDS SUMMARY | 2024-12-08 05:48 | XMS_ITS | Clinical Summary ---
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 [...] Overview (04/26/2020): Seen on CT abd at [facility] 10/2018 Coronary arteriosclerosis 05/24/2019 Noncompliance with medication regimen 10/27/2018 Essential hypertension 09/06/2018 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 ilure 09/06/2018 Normocytic anemia 09/06/2018 Chronic kidney disease stage 4 06/26/2018 Overview (2020): Update for Diagnosis Load 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 06/26/2018 Combined hyperlipidemia 01/15/2013 Acquired hypothyroidism 08/18/2012 Encounters Date Type Department Care Team Description 12/03/2024 Orders Only [facility] [address] [place] [address] Yesi Madison MD 12/01/2024 Treatment [facility], [facility] [address] [place] [address] Zoey Johnson NP End stage renal disease; Dependence on renal dialysis 11/27/2024 Orders Only [facility] [address] [place] [address] Yesi Madison MD 11/24/2024 Telephone [facility] [address] [place] [address] Yesi Madison MD 11/24/2024 Treatment [facility], [facility] [address] [place] [address] Ghazal Schmitt NP End stage renal disease; Dependence on renal dialysis 11/19/2024 Orders Only [facility] [address] [place] [address] Yesi Madison MD 11/17/2024 [facility], [facility] [address] [place] [address] Ghazal Schmitt NP End stage renal disease; Dependence on renal dialysis 11/10/[address] [place] [address], [facility] [address] [place] [address] Zoey Johnson NP End stage renal disease; Dependence on renal dialysis 11/05/2024 Orders Only [facility], [facility] [address] [place] [address] Yesi Madison MD 11/05/2024 Treatment [facility], [facility] [address] [place] [address] Yesi Madison MD End stage renal disease; Dependence on renal dialysis 10/22/2024 Orders Only [facility], [facility] [address] [place] [address] Yesi Madison MD 10/20/[address] [place] [address], [facility] [address] [place] [address] Zoey Johnson NP End stage renal disease; Dependence on renal dialysis 10/20/2024 Telephone [facility], [facility] [address] [place] [address] Yesi Madison MD 10/15/2024 Orders Only [facility], [facility] [address] [place] [address] Yesi Madison MD 10/15/[address] [place] [address], [facility] [address] [place] [address] Yesi Madison MD End stage renal disease; Dependence on renal dialysis 10/08/2024 Orders Only [facility], [facility] [address] [place] [address] Yesi Madison MD 10/06/[address] [place] [address], [facility] [address] [place] [address] Ghazal Schmitt NP End stage renal disease; Dependence on renal dialysis 10/05/2024 Telephone [facility], [facility] [address] [place] [address] Yesi Madison MD 10/01/2024 [facility], [facility] [address] [place] [address] Yesi Madison MD 09/29/2024 [facility], [facility] [address] [place] [address] Yesi Madison MD 09/29/2024 TCM in D[facility] Clinic [address] [place] [address], [facility] [address] [place] [address] Zoey Johnson NP 09/29/[address] [place] [address], [facility] [address] [place] [address] Zoey Johnson NP End stage renal disease; Dependence on renal dialysis 09/26/2024 [facility], [facility] [address] [place] [address] Yesi Madison MD 09/17/2024 Orders Only [facility], [facility] [address] [place] [address] Yesi Madison MD 09/10/2024 Orders Only [facility], [facility] [address] [place] [address] Yesi Madison MD 09/08/2024 Orders Only [facility], [facility] [address] [place] [address] Yesi Madison MD 09/08/[address] [place], [place] [address], [facility] [address] [place] [address] Yesi Madison MD End stage renal disease; [...] x 3 37.8(L) 42.0 - 54.0 % [facility] 12/03/2024 12/04/2024 10: 44 AM CDT Narrative [facility] - 12/04/2024 Unless otherwise specified, test(s) performed at: [facility], [address] [place] [address] CLINIC CHARGE NURSE: Jose Martin Mariscal M.D. For any questions, please call customer service at FREQUENCY:OTHER Resulting Agency Comment Specimen source: Blood us Yesi Madison MD LAB BLOOD ORDERABLES Final Re sult [facility] See order comments or contact performing lab Unknown, [place] * [facility] (11/27/2024) Only the most recent of6 resultswithin the time period is included. Potassium 4.1 3.5 - 5.1 mEq/L [facility] 11/27/2024 11/28/2024 10: 57 AM CDT Narrative [facility] - 11/28/2024 Unless otherwise specified, test(s) performed at: [facility], [address] [place] [address] CLINIC CHARGE NURSE: Jose Martin Mariscal M.D. For any questions, please call customer service at FREQUENCY:OTHER Resulting Agency Comment Specimen source: Serum us Yesi Madison MD LAB BLOOD ORDERABLES Final Re sult Performing Organization Address [facility] Co de Phone Number [facility] See order comments or contact performing lab Unknown, [place] * [facility] (11/19/2024) Only the most recent of4 resultswithin the time period is included. % Urea Reduction 74 65 - 80 % [facility] 11/19/2024 11/21/2024 10: 46 AM CDT Narrative [facility] - 11/21/2024 Unless otherwise specified, test(s) performed at: [facility], [address] [place] [address] CLINIC CHARGE NURSE: Jose Martin Mariscal M.D. For any questions, please call customer service at FREQUENCY:MONTHLY Resulting Agency Comment Specimen source: Plasma us Yesi Madison MD LAB BLOOD ORDERABLES Final Re sult [facility] See order comments or contact performing lab Unknown, [place] * POST CHEMISTRY (11/19/2024) Only the most recent of4 resultswithin the time period is included. BUN Post Dialysis 11 6 - 19 mg/dL [facility] 11/19/2024 11/21/2024 10: 46 AM CDT Narrative [facility] - 11/21/2024 Unless otherwise specified, test(s) performed at: [facility], [address] [place] [address] CLINIC CHARGE NURSE: Jose Martin Mariscal M.D. For any questions, please call customer service at FREQUENCY:MONTHLY Resulting Agency Comment Specimen source: Plasma Yesi Madison MD LAB BLOOD ORDERABLES Final Re sult [employer] See order comments or contact performing lab Unknown, [place] * [facility] Lab Results (11/19/2024) Only the most recent of4 resultswithin the time period is included. Pathologist [facility] eKt/V (Tat[place]all) 1.30 [facility] PCR 55.10 [facility] eKdrt/V 1.29 [facility] spKt/V (Daugirdas II) 1.49 [facility] WSTDKT/V 2.4 [facility] spKt/V Gotch 1.50 [facility] eNPCR 0.72 [facility] nPCR_HD 0.79 [facility] eKt/V Gotch 1.29 [facility] e Center 11/19/2024 11/19/2024 [facility] Ordering Provider LAB BLOOD ORDERABLES Final Result Performing Organization Address City/[facility]/ZIP Co de Phone Number [facility] Contact Performing lab Unknown, [place] * (ABNORMAL) THYROIDS (10/22/2024) Pathologist [facility] TSH 4.142(H) 0.300 - 3.000 mIU/L [employer] Comment: The reference range of 0.300-3.000 mIU/L is recommended by the [place] [employer]ocrinologists (AACE). An ESRD population contains about 20% of individuals with TSH of up to 20 mIU/L and normal free T4 consistent with non-thyroidal illness. ESRD patients with true hypothyroidism develop persistent values above 20 mIU/L. 10/22/2024 10/23/2024 1:1 0 PM CDT Narrative [facility] - 10/23/2024 Unless otherwise specified, test(s) performed at: [facility], [address] [place] [id number] CLINIC CHARGE NURSE: Jose Martin Mariscal M.D. For any questions, please call customer service at FREQUENCY:MONTHLY Resulting Agency Comment Specimen source: Serum us Yesi Madison MD LAB BLOOD ORDERABLES Final Re sult Performing Organization Address City/[facility]/ZIP Co de Phone Number [facility] See order comments or contact performing lab Unknown, [place] * SPECIAL CHEMISTRY (10/22/2024) Only the most recent of2 resultswithin the time period is included. Creatine Kinase (CK/CPK) 47 30 - 223 U/L [employer] [facility] 10/22/2024 10/23/2024 1:1 0 PM CDT Narrative Resulting Agency Comment Specimen source: Serum us Yesi Madison MD LAB BLOOD BANK TEST ORDERABLE S Final Result Performing Organization Address [facility] Co de Phone Number [facility] See order comments or contact performing lab Unknown, [place] from Last 3 Months Insurance [facility] Medicare Care Teams Warehouse Processor Relationship Specialty Start Date End Date Kp Montanez DO [address] [place] [address] PCP - General Internal Medicine 01/07/23
--- OUTSIDE RECORDS SUMMARY | 2024-12-08 05:48 | XMS_ITS | Clinical Summary ---
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 9 Active atorvastatin (LIPITOR) 40 mg tablet [...] sugar). 4 Active naloxone (NARCAN) 4 mg/spray [place], Non-Aerosol EMERGENCY USE ONLY: Administer 1 spray (4 mg) in one nostril one time. May repeat in alternating nostrils every 2-3 min until responsive or EMS arrives. 2 Each 3 5 Active sacubitriL-vals tommy (ENTRESTO) 24-26 mg Tablet Take 1 Tablet by mouth daily. 200 Tablet 3 07/03/2024 4:14 PM BORDER INSPECTOR 5 Active carvediloL (COREG) 12.5 mg tablet Take 1 Tablet (12.5 mg) by mouth 2 times daily. 30 Tablet 07/03/2024 4:14 PM BORDER INSPECTOR 5 Active isosorbide mononitrate (IMDUR) 60 mg Extended Release 24 hour tablet Take 1 Tablet (60 mg) by mouth daily in the morning. 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 08/18/2012 DM [...] Type Department Care Team Description 12/04/2024 Telephone [facility] Vascular Surgery [place] [address] [place] [address] Shannan Goodwin MD Question 11/13/2024 3:30 PM CDT Office Visit [facility] Vascular Surgery [place] [address] [place] [address] Shannan Goodwin MD ESRD (end stage renal disease) ([facility]) (Primary Dx); AV graft stenosis, subsequent encounter 11/09/2024 Telephone [place] [address] [facility] [address] [place] [address] Stephani Keen MD Severe pain in right arm/shoulder 11/03/2024 11:02 AM CDT - 11/03/2024 11:59 PM CDT Hospital Encounter [facility] Interventional Radiology [address] [address] Yesi Madison MD Birlew, Ryan Avery, MD Discharge Disposition: Home or Self Care 11/02/2024 Telephone [facility] Interventional Radiology [address] [address] Sabra Barr RN Procedure (Instructed patient for scheduled procedure with sedation on 11/03/24. Check at the [place] entrance at 1230. Instructed they need to have a package car driver and someone to stay with them [...] small sip of water. /) 11/02/2024 Telephone [facility] [address] [facility] [address] [place] [address] Stephani Keen MD PT needs to cancel Pacemaker appointment 11/02/2024 Telephone [facility] Vascular Surgery [place] [address] [place] [address] Shannan Goodwin MD Appointment Notification 10/30/2024 12:51 PM CDT - 10/30/2024 11:59 PM CDT Hospital Encounter [facility] Dialysis [address] [address] Discharge Disposition: Home or Self Care 10/30/2024 11:30 AM CDT - 10/30/2024 11:59 PM CDT Hospital Encounter [facility] Interventional Radiology [address] [place] [phone] Yesi Madison MD Birlew, Ryan Avery, MD Discharge Disposition: Home or Self Care 10/28/2024 Telephone [facility] Vascular Surgery [address] [place] [phone] Shannan Goodwin MD Appointment Verification 10/27/2024 [facility] Vascular Surgery [address] [phone] Shannan Goodwin MD Question 10/20/2024 External Device Data STL ABSTRACTION Provider, Abstract 10/19/2024 Telephone [facility] [phone] Shannan Goodwin MD Information 09/28/2024 [facility] Vascular Surgery [address] [phone] Shannan Goodwin MD Needs Appointment 09/24/2024 [place] [id number] [facility] [address] [place] [phone] Marla Rodriges FNP Appointment Notification 09/22/2024 External Device Data STL ABSTRACTION Provider, Abstract 09/19/2024 2:43 PM CDT - 09/24/2024 4:56 PM CDT Hospital Encounter [address] Medical [address] [place] [phone] Lucia Hernandez DO Abbas, Muhammad Khalid, MD Bandaru, Kiran Babu, MD Neupane, Gagan, MD AV fistula occlusion Discharge Disposition: Home or Self Care 09/19/2024 10:47 AM CDT - 09/19/2024 1:03 PM CDT Emergency [facility] Emergency Medicine [address] [place] [phone] Joesph Larios MD Vascular graft occlusion, initial encounter (Primary Dx) Discharge Disposition: Home or Self Care 09/19/2024 12:15 AM CDT - 09/19/2024 11:59 PM CDT Hospital Encounter [facility] Emergency Medical Services [address] [place] [address] Ambulance, [facility] Discharge Disposition: RUST 09/19/2024 Travel 09/11/2024 Telephone [facility] Vascular Surgery [place] [address] [place] [address] Pat Archibald FNP Question from Last 3 Months Immunizations Immunization Administration Dates Next Due (ADACEL/BOOSTRIX)(10 YR UP) TDAP VACCINE, 0.5ML, IM 05/30/2021 (HEPLISAV-B)(18 YR UP) HEPAT ITIS B VACCINE CPG-ADJUVANTED (HEPB-CPG) 2-4 DOSE, IM 10/30/2022,08/25/2022,07/21/2022,06/23 (PNEUMOVAX 23)(50 YRS UP) PN EUMOCOCCAL POLYSACCHARIDE (PPV23) 0.5 ML, IM 09/18/2022,05/25/2019 (PREVNAR 20)(6 WKS UP) PNEUM OCOCCAL CONJUGATE VACCINE 20-VALENT (PCV20), POLYSACCHARIDE [id number] CONJUGATE, ADJUVANT 0.5 ML (PF) IM 06/26/2022 [...] on file Legal Sex 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 Gender Identity Not on file Sexual Orientation [...] Description 02/12/2025 3:30 PM CDT Office Visit [facility] Vascular Surgery [place] [address] [facility] [address] [place] [phone] Shannan Goodwin MD [address] [facility] [address] [place] [address] Health Maintenance Due Date Last [...] 08/10/2020, 06/06/2020 Medical Devices Implanted Type Area Special Events Fundraiser Device Identifier Shelf Expiration Date Model / Serial / Lot Clip Ligating Horizon Red [id number] - Csc - [id number] Implanted:Qty : 1 on 09/28/2022 by Guero Felder MD at [facility] Clip Left: Arm TELE[employer] INC [id number] 12/25/2026 [id number] / / [id number] Clip Ligating Horizon Med Ti [id number] - Csc - [id number] Implanted:Qty : 1 on 09/28/2022 by Guero Felder MD at [facility] Clip Left: Arm TELEFLEX- WECK CLOSURE SYS [id number] 10/08/2026 [id number] / / [id number] Clip Ligating Horizon Red [id number] - [facility] - [id number] Implanted:Qty : 1 on 11/14/2022 by Jimmy Anaya MD at [facility] Clip Left: Arm TELEFLEX INC [id number] 12/25/2026 [id number] / / [id number] Clip Ligating Horizon Med Ti 668530 - [facility] - [id number] Implanted:Qty : 1 on 11/14/2022 by Jimmy Anaya MD at [facility] Clip Left: Arm TELEFLEX- WECK CLOSURE SYS [id number] 02/12/2027 / / [id number] Closure Perclose Prostyle Sut Mediate 01366-54 - [id number] Implanted:Qty : 1 on 05/03/2023 by Jay Bales MD at [facility] Closure Device Right: Groin SALAS- VASC DEVICE 01/17/2025 71240-2 3 / / [id number] Dev Closure Angioseal 6fr Vip 014613 - [id number] Implanted:Qty : 1 on 05/03/2023 by Jay Bales MD at [facility] Closure Device Right: Groin [facility]AS [facility] 10/11/2023 [id number] / / [id number] Dev Closure Angioseal 6fr Vip 279139 - [id number] Implanted:Qty : 1 on 06/19/2024 by Prince Barfield MD at [facility] Closure Device Right: Groin TERUMO- CARDIOVASC SYS 01/13/2025 [id number] / / [id number] Dev Icd Acticor 7 Vr-T Dx Df4 Hybrid 572147 - [id number] Implanted:Qty : 1 on 07/23/2024 by Stephani Keen MD at [facility] Defibrillator Right: Chest Wall [employer] INC [id number] 05/19/2026 186481 / [id number] / Graft Vasc Propaten 4-1auz03dj [id number] - [id number] Implanted:Qty : 1 on 09/28/2022 by Guero Felder MD at [facility] Graft Left: Arm [employer] INC [id number] 04/02/2026 [id number] / [id number] 2026-03 Hemostatic Surgicel 1x2in 1960 - [id number] Implanted:Qty : 1 on 09/28/2022 by Guero Felder MD at [facility] Hemostatic Left: Arm J&J- ETHICON INC [id number] 02/16/20251960 / / [id number] Hemostatic Surgicel 1x2in 1960 - [id number] Implanted:Qty : 1 on 09/28/2022 by Guero Felder MD at [facility] Hemostatic Left: Arm J&J- ETHICON INC [id number] 12/17/20241960 / / [id number] Lead Endocardial Pamira S Dx 65/15 Rv W Atr Sensing 372510 - [id number] Implanted:Qty : 1 on 07/23/2024 by Stephani Keen MD at [facility] Lead Right: Chest Wall [employer]OT[employer] INC [id number] 05/19/2026 755375 / [id number] / Power Port Implanted:(Qu antity not on file) Explanted:(Qu antity not on file) Port Port- 9 Implanted: (Quantity not on file) Port Suture Perchik 2 Button Pouch [id number] - [id number] Implanted:Qty : 1 on 08/23/2023 at [facility] Screw [employer] [id number] / / Description:This is Not an I mplant Stent Implanted:(Qu antity not on file) Explanted:(Qu antity not on file) Stent Stent Synergy Xd 3.5x16mm Evrlms Elut [id number] - [id number] Implanted:Qty : 1 on 05/03/2023 by Jay Bales MD at [facility] Stent Left: Coronary MustHaveMenus PATRICK 01/01/2025 [id number] / / [id number] Stent Viabahn Hep 8mmx7.5xcm [id number] - [id number] Implanted:Qty : 1 on 10/23/2023 by Jimmy Anaya MD at [facility] Stent Left: Arm [employer] [id number] 12/23/2025 [id number] / [id number] / Procedures Procedure Name Priority Date/Time Associated Diagnosis Comments IR FISTULOGRAM Routine 11/03/2024 1:16 PM CDT ESRD (end stage renal disease) ([facility]) TELEMETRY REPORT 09/25/2024 2:39 AM CDT [...] CDT HEMOGLOBIN A1C Routine 06/27/2024 5:39 AM BORDER INSPECTOR LIPID PANEL Routine 05/02/2023 9:36 PM BORDER INSPECTOR from Last 3 Months or Most Recently [...] flows.. DIAGNOSIS: ESRD (end stage renal disease) ([facility]). Medications: Fentanyl and versed were titrated to effect. Moderate (conscious) sedation for this procedure was performed with continuous physician supervision. Medical history, physical exam, drug dosages, routes of drug administration, monitoring data, and precise times of service are documented in the medical record on the [facility]-approved form, 'Sedative/Analgesic Administration for Diagnostic and [...] transitional dilator was exchanged for a 6 Mozambican vascular sheath. Angioplasty of recurrent moderate stenosis [...] was obtained and exchanged for a 6 Mozambican sheath. A Glidewire was advanced retrograde into [...] flows.. DIAGNOSIS: ESRD (end stage renal disease) ([facility]). Medications: Fentanyl and versed were titrated to effect. Moderate (conscious) sedation for this procedure was performed with continuous physician supervision. Medical history, physical exam, drug dosages, routes of drug administration, monitoring data, and precise times of service are documented in the medical record on the [facility]-approved form, 'Sedative/Analgesic Administration for Diagnostic and [...] transitional dilator was exchanged for a 6 Mozambican vascular sheath. Angioplasty of recurrent moderate stenosis [...] was obtained and exchanged for a 6 [place] sheath. A Glidewire was advanced retrograde into [...] - 99 mg/dL 09/24/2024 12:46 PM CDT [facility] SPECIMEN SOURCE, GLUCOSE POC Capillary 09/24/2024 12:46 PM CDT [facility] Blood, whole 09/24/2024 12:4 6 PM CDT 09/24/2024 1:21 PM CDT Cas Barreto MD POINT OF CARE TESTING Final Res ult [facility] # [id number] [address] [place] [address] * HEMODIALYSIS (09/24/2024 7:53 AM CDT) Narrative Yesi Madison MD - 09/24/2024 7:53 AM CDT Yesi Madison MD 09/24/2024 8:22 AM [facility] - Procedure Note Primary Stem Roller Or Crusher Operator: Dr. Yesi Madison PROCEDURE: Intermittent Hemodialysis INDICATION: [...] ultrafiltration with rinse back. Yesi Madison MD [facility] 09/24/24, 7:54 AM Pamela Sevilla DO DIALYSIS ORDERABLES Edited Resu lt - Final * (ABNORMAL) CBC WITH DIFFERENTIAL (09/24/2024 1:23 AM CDT) Only the most recent of5 resultswithin the time period is included. WBC 7.3 4.8 - 10.8 K/uL 09/24/2024 1:37 AM [facility] RBC 3.24(L) 4.60 - 6.20 M/uL 09/24/2024 1:37 AM [facility] HEMOGLOBIN 10.3(L) 14.0 - 18.0 g/dL 09/24/2024 1:37 AM [facility] HEMATOCRIT 30.2(L) 41.0 - 53.0 % 09/24/2024 1:37 AM [facility] MCV 93.2 84.0 - 103.0 fL 09/24/2024 1:37 AM [facility] MCH 31.8 27.0 - 34.0 pg 09/24/2024 1:37 AM [facility] MCHC 34.1 30.0 - 35.0 g/dL 09/24/2024 1:37 AM [facility] PLATELETS 207 140 - 440 K/uL 09/24/2024 1:37 AM [facility] MPV 9.3 8.9 - 12.8 fL 09/24/2024 1:37 AM [facility] RDW 15.5(H) 11.0 - 14.5 % 09/24/2024 1:37 AM [facility] RDW-STDEV 51.8 37.0 - 54.0 fL 09/24/2024 1:37 AM [facility] NEUTROPHILS 60 42 - 75 % 09/24/2024 1:37 AM [facility] LYMPHOCYTES 27 24 - 44 % 09/24/2024 1:37 AM [facility] MONOCYTES 9 2 - 10 % 09/24/2024 1:37 AM [facility] EOSINOPHILS 3 0 - 7 % 09/24/2024 1:37 AM [facility] BASOPHILS 1 0 - 1 % 09/24/2024 1:37 AM [facility] IMMATURE GRANULOCYTES 0 0 - 2 % 09/24/2024 1:37 AM [facility] NEUTROPHIL ABSOLUTE 4.37 2.00 - 8.00 K/uL 09/24/2024 1:37 AM [facility] LYMPHOCYTE ABSOLUTE 1.98 1.20 - 4.00 K/uL 09/24/2024 1:37 AM [facility] MONOCYTE ABSOLUTE 0.65(H) 0.10 - 0.60 K/uL 09/24/2024 1:37 AM [facility] EOSINOPHIL ABSOLUTE 0.22 0.00 - 0.70 K/uL 09/24/2024 1:37 AM [facility] BASOPHILS ABSOLUTE 0.04 0.00 - 0.20 K/uL 09/24/2024 1:37 AM [facility] IMMATURE GRANULOCYTES ABSOLUTE 0.03 0.00 - 0.10 K/uL 09/24/2024 1:37 AM [facility] SMEAR REVIEWED: NA - Not Applicable 09/24/2024 1:37 AM [facility] Blood Venipuncture / Unknown 09/24/2024 1:23 AM CDT 09/24/2024 1:31 AM CDT us Cas Barreto MD HEMATOLOGY ORDERABLES Final Res ult [facility] CLIA # [id number] [address] [place] [address] [place] [address] * (ABNORMAL) BASIC METABOLIC PANEL (09/24/2024 1:23 AM CDT) Only the most recent of5 resultswithin the time period is included. SODIUM 134(L) 136 - 145 mmol/L 09/24/2024 2:06 AM T [facility] POTASSIUM 3.9 3.5 - 5.1 mmol/L 09/24/2024 2:06 AM [facility] Comment:Moderate hemolysis p resent. Can cause significant falsely elevated result. Redraw if indicated. CHLORIDE 96(L) 98 - 107 mmol/L 09/24/2024 2:06 AM [facility] CO2 26 22 - 29 mmol/L 09/24/2024 2:06 AM [facility] CALCIUM 8.5(L) 8.6 - 10.0 mg/dL 09/24/2024 2:06 AM [facility] BUN 35(H) 6 - 20 mg/dL 09/24/2024 2:06 AM T [facility] CREATININE 4.10(H) 0.67 - 1.17 mg/dL 09/24/2024 2:06 AM [facility] GLUCOSE 133(H) 74 - 99 mg/dL 09/24/2024 2:06 AM [facility] GFR 16(L) >=60 mL/min/1. 73 sq meter 09/24/2024 2:06 AM [facility] Comment:eGFR calculated with 2020 CKD-EPI equation. Vegetarian diet, extremely high or low muscle mass, and may affect results. Cystatin C with Glomerular Filtration Rate is a suitable alternative for these patients. ANION GAP 12 9 - 20 mmol/L 09/24/2024 2:06 AM CDT [facility] Blood Venipuncture / Unknown 09/24/2024 1:23 AM CDT 09/24/2024 1:31 AM CDT Cas Barreto MD CHEMISTRY ORDERABLES Final Resu lt Performing Organization Address [facility] Co de Phone Number [facility] CLIA # [id number] [address] [address] [place] [address] * (ABNORMAL) TROPONIN (09/23/2024 3:22 PM CDT) TROPONIN T, 5TH GEN 42(H) <=15 ng/L 09/23/2024 4:17 PM CDT [facility] Blood Venipuncture / Unknown 09/23/2024 3:22 PM CDT 09/23/2024 3:46 PM CDT Narrative [facility] - 09/23/2024 4:17 PM CDT Troponin elevated. Cas Barreto MD CHEMISTRY ORDERABLES Final Resu lt Performing Organization Address [facility] Co de Phone Number [facility] CLIA # [id number] [address] 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 : 1970 Requested By: Order Number: [id number] Reading : Erasmo Reese Measurements Intervals Parker Rate: 79 P: 42 KS: 182 QRS: 23 QRSD: 112 T: 121 QT: 394 QTc: 451 Interpretive Statements Normal sinus rhythm Anterior infarct, age undetermined Abnormal ECG Electronically Signed On 09-23-2024 20:04:59 CDT by Erasmo Reese Procedure Note Erasmo Reese MD - 09/23/[address] [address] Test Date: 2024-09-23 Pat Name: SMITHA QUEEN Department: 12 Room: [address] [place] [address] Gender: Male 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 Yesi Madison PROCEDURE: Intermittent Hemodialysis INDICATION: [...] HD days while inpatient. Zoey Johnson NP [facility] 09/22/24, 12:36 PM Pamela Sevilla DO DIALYSIS ORDERABLES Final Resul t * HEMODIALYSIS (09/21/2024 4:14 PM CDT) Zita Blank MD - 09/21/2024 4:14 PM CDT Zita Gilbert MD 09/21/2024 7:36 PM [facility] - Procedure Note Primary Stem Roller Or Crusher Operator: Dr. Yesi Madison PROCEDURE: Intermittent Hemodialysis INDICATION: [...] HD days while inpatient. Zoey Johnson NP [facility] 09/21/24, 4:15 PM Windy Chirinos CRYSTAL MACHINING COORDINATOR DIALYSIS ORDERABLES Final R esult * US DUPLEX ARTERIAL ARM LEFT (09/19/2024 3:26 PM CDT) Anatomical Region Laterality Modality Upper Extremity Ultrasound 09/19/2024 3:04 PM CDT Narrative 09/19/2024 4:28 PM CDT [facility] Cardiovascular Services Noninvasive Vascular Laboratory [address] [place] [address] Noninvasive Vascular Lab Upper Extremity Hemodialysis Access Follow-up Evaluation Patient: Smitha Queen Junior Study ID: US DUPLEX ARTERI Gender: M : 1970 Age: 54 Room: 15 Height: 165.1cm Weight: 93.8kg BSA: 2.11m^2 Pt status: Outpatient Study Date: 09/19/2024 Study Time: 03:04:00 PM BSA: 2.11m^2 Ordering: Lucia Hernandez Interpreting:Erasmo Berg Classification Case Manager: Coby Chau RVT Indications: Concern for thrombosed [...] the supine position. Image quality was good. [facility] Vascular Lab is accredited with the Intersocietal Commission for the Accreditation of Vascular Laboratories (ICAVL) Prepared and Electronically Authenticated Erasmo Berg Confirmed 09/19/2024 16:28 Procedure Note Erasmo Berg MD - 09/19/2024 [facility] Cardiovascular Services Noninvasive Vascular Laboratory [address] [place] [address] Noninvasive Vascular Lab Upper Extremity Hemodialysis Access Follow-up Evaluation Patient: Smitha Queen Junior Study ID: US DUPLEX ARTERI Gender: M : 1970 Age: 54 Room: 15 Height: 165.1cm Weight: 93.8kg BSA: 2.11m^2 Pt status: Outpatient Study Date: 09/19/2024 Study Time: 03:04:00 PM BSA: 2.11m^2 Ordering: Lucia Hernandez Interpreting:Erasmo Berg Classification Case Manager: Coby Chau RVT Indications: Concern for thrombosed [...] the supine position. Image quality was good. [facility] Vascular Lab is accredited with theIntersocietal Commission for the Accreditation of Vascular Laboratories (ICAVL) Prepared and Electronically Authenticated Erasmo Berg Confirmed 09/19/2024 16:28 us Lucia Hernandez DO US ORDERABLES Final Result * (ABNORMAL) PROTIME-INR (09/19/2024 3:11 PM CDT) Only the most recent of2 resultswithin the time period is included. PROTIME 14.8(H) 12.6 - 14.6 Seconds 09/19/2024 3:45 PM CDT [facility] INR 1.1 0.8 - 1.2 09/19/2024 3:45 PM CDT [facility] Blood Venipuncture / Unknown 09/19/2024 3:11 PM CDT 09/19/2024 3:22 PM CDT [facility] - 09/19/2024 3:45 PM CDT Expected Values for INR: DVT/PE Goal INR 2.5; range 2.0 - 3.0 Valve Replacement Tissue Goal INR 2.5; range 2.0 - 3.0 Valve Replacement Mechanical Goal INR 3.0; range 2.5 - 3.5 POST-WV Goal INR 2.5; range 2.0 - 3.0 or Goal INR 3.0; range 2.5 - 3.5 Atrial Fibrillation Goal INR 2.5; range 2.0 - 3.0 Ischemic Stroke Goal INR 2.5; range 2.0 - 3.0 Lucia Hernandez DO HEMATOLOGY ORDERABLES Final Resu lt Performing Organization Address [facility] Co de Phone Number [facility] [place] CLIA # [id number] [address] [address] * TYPE AND SCREEN (09/19/2024 3:11 PM CDT) ABO GROUP O 09/19/2024 4:00 PM CDT [facility] [place] RH (D) TYPE Negative 09/19/2024 4:00 PM CDT [facility] [place] ANTIBODY SCREEN Negative 09/19/2024 4:00 PM CDT [facility] [place] Blood Venipuncture / Unknown 09/19/2024 3:11 PM CDT 09/19/2024 3:22 PM CDT us Lucia Hernandez DO BLOOD BANK ORDERABLES Edited Res ult - Final Performing Organization Address [facility] Co de Phone Number [facility] [place] CLIA#[id number] [facility] [place] [address], * PTT (09/19/2024 11:29 AM CDT) PTT 30.1 25.8 - 34.0 seconds 09/19/2024 11:57 AM CDT [facility] Blood BLOOD SPECIMEN / Unknown Collection / Unknown 09/19/2024 11:29 AM CDT 09/19/2024 11:38 AM CDT Joesph Larios MD HEMATOLOGY ORDERABLES Final Res ult Performing Organization Address [facility]/ZIP Co de Phone Number [facility] CLIA # [id number] [address] [place] [address] * (ABNORMAL) D-DIMER (09/19/2024 11:29 AM CDT) D-DIMER QUANT 1.25(H) <0.50 ug/mL FEU 09/19/2024 12:00 PM CDT [facility] Blood BLOOD SPECIMEN / Unknown Collection / Unknown 09/19/2024 11:29 AM CDT 09/19/2024 11:38 AM CDT [facility] Healthcare - 09/19/2024 12:00 PM CDT D-Dimer assay [...] ORDERABLES Final Res ult Performing Organization Address City/[facility]/ZIP Co de Phone Number [facility] CLIA # [id number] [address] [place] [address] 80283 * C-REACTIVE PROTEIN (09/19/2024 11:29 AM CDT) CRP 4.7 <5.0 mg/L 09/19/2024 12:00 PM CDT [facility] Blood BLOOD SPECIMEN / Unknown Collection / Unknown 09/19/2024 11:29 AM CDT 09/19/2024 11:38 AM CDT us Joesph Larios MD CHEMISTRY ORDERABLES Final Resu lt Performing Organization Address [facility]/ZIP Co de Phone Number [id number] [address] [place] [address]258 * (ABNORMAL) BRAIN NATRIURETIC PEPTIDE, BNP OR PROBNP (09/19/2024 11:29 AM CDT) PROBNP, N TERMINAL 1,241(H) 0 - 125 pg/mL 09/19/2024 12:00 PM CDT [facility] Comment: INTERPRETIVE COMMENT based on diagnosis: Diagnostic [...] ORDERABLES Final Resu lt Performing Organization Address City/[facility]/ZIP Co de Phone Number [facility] CLIA # [id number] [address] [place] [address] 13876 * MAGNESIUM LEVEL (09/19/2024 11:29 AM CDT) MAGNESIUM 1.9 1.6 - 2.6 mg/dL 09/19/2024 12:00 PM CDT [facility] Blood BLOOD SPECIMEN / Unknown Collection / Unknown 09/19/2024 11:29 AM CDT 09/19/2024 11:38 AM CDT us Joesph Larios MD CHEMISTRY ORDERABLES Final Resu lt [facility] [id number] [address] [place] [address]48 * (ABNORMAL) COMPREHENSIVE METABOLIC PANEL (09/19/2024 11:29 AM CDT) SODIUM 138 136 - 145 mmol/L 09/19/2024 12:00 PM [facility] POTASSIUM 4.4 3.5 - 5.1 mmol/L 09/19/2024 12:00 PM [facility] CHLORIDE 99 98 - 107 mmol/L 09/19/2024 12:00 PM [facility] CO2 29 22 - 29 mmol/L 09/19/2024 12:00 PM [facility] CALCIUM 8.7 8.6 - 10.0 mg/dL 09/19/2024 12:00 PM [facility] BUN 35(H) 6 - 20 mg/dL 09/19/2024 12:00 PM [facility] CREATININE 3.36(H) 0.67 - 1.17 mg/dL 09/19/2024 12:00 PM [facility] GLUCOSE 141(H) 74 - 99 mg/dL 09/19/2024 12:00 PM [facility] TOTAL PROTEIN 5.7(L) 6.6 - 8.7 g/dL 09/19/2024 12:00 PM [facility] ALBUMIN 3.5(L) 4.0 - 4.9 g/dL 09/19/2024 12:00 PM [facility] BILIRUBIN TOTAL 0.4 0.0 - 1.2 mg/dL 09/19/2024 12:00 PM [facility] ALKALINE PHOSPHATASE 86 40 - 129 U/L 09/19/2024 12:00 PM [facility] AST 14 0 - 50 U/L 09/19/2024 12:00 PM [facility] ALT 9 0 - 50 U/L 09/19/2024 12:00 PM T [facility] GFR 21(L) >=60 mL/min/1.7 3 sq meter 09/19/2024 12:00 PM [facility] Comment:eGFR calculated with 2020 CKD-EPI equation. Vegetarian diet, extremely high or low muscle mass, and may affect results. Cystatin C with Glomerular Filtration Rate is a suitable alternative for these patients. ANION GAP 10 5 - 20 mmol/L 09/19/2024 12:00 PM T [facility] Blood BLOOD SPECIMEN / Unknown Collection / Unknown 09/19/2024 11:29 AM CDT 09/19/2024 11:38 AM CDT us Joesph Larios MD CHEMISTRY ORDERABLES Final Resu lt Performing Organization Address [facility] Co de Phone Number [facility] CLIA # [id number] [address] [place] [address] 9[address]08 * (ABNORMAL) HEMOGLOBIN A1C (06/27/2024 5:39 AM BORDER INSPECTOR) HEMOGLOBIN A1C 6.6(H) <=5.6 % 06/29/2024 9:10 AM BORDER INSPECTOR [facility] EST. AVG GLUCOSE, A1C 143 mg/dL 06/29/2024 9:10 AM [facility] Blood Collection / Unknown 06/27/2024 5:39 AM BORDER INSPECTOR 06/27/2024 6:05 AM BORDER INSPECTOR Narrative [facility] - 06/29/2024 9:10 AM BORDER INSPECTOR HGB A1C INTERPRETATION NORMAL: <5.7% PRE-DIABETES: 5.7 - 6.4% DIABETES: 6.5% OR GREATER us Joey Vo DO CHEMISTRY ORDERABLES Final R esult Performing Organization Address [facility]/ZIP Co de Phone Number [facility] CLIA # [id number] [address] [place] [address] * (ABNORMAL) LIPID PANEL (05/02/2023 9:36 PM BORDER INSPECTOR) CHOLESTEROL 224(H) <200 mg/dL 05/03/2023 10:26 PM [facility] TRIGLYCERIDE 286(H) <150 mg/dL 05/03/2023 10:26 PM [facility] HDL 39(L) 40 - 59 mg/dL 05/03/2023 10:26 PM [facility] LDL CALCULATED 128(H) <100 mg/dL 05/03/2023 10:26 PM [facility] NON-HDL CHOLESTEROL 185(H) <130 mg/dL 05/03/2023 10:26 PM [facility] Blood Venipuncture / Unknown 05/02/2023 9:36 PM BORDER INSPECTOR 05/02/2023 9:51 PM BORDER INSPECTOR Narrative [facility] - 05/03/2023 10:26 PM [facility] TOTAL CHOLESTEROL mg/dL Desirable <200 Borderline high [...] Covarrubias MD CHEMISTRY ORDERABLES Final Resul t [facility] CLIA # [id number] [address] [place] [address] from Last 3 Months or Most Recently Relevant to Health Maintenance Insurance MEDICAID [facility] [id number] * Guarantor: SMITHA QUEEN II Account Type Relation to Patient Date of Phone Billing Address Personal/Family [address] [place] [address] RX [employer] PLANS (INTERNAL) [facility] RX [employer] Commercial RX INFOCROSSING Medicaid RX [employer] RX Member Subscriber Plan / Payer (Ef fective for All Dates) Name:Smitha Queen II, Junior Relation to Subscriber:Self Name:Smitha Queen II, Junior Payer ID:Not on file Type:RX Medicare Part D Address: [place] [place] Advance Directives For more information, please contact: [phone] Documents on File Type Date Recorded Patient Legal Research Analyst Expl anation Advance Directive POA 08/23/2014 4:06 [...] 2:16 AM 07/03/2024 6:07 PM Care Teams Contact Center Specialist Relationship Specialty Start Date End Date Dez Evans MD [address] [place] [address] PCP - General Family Practice 06/18/24
--- OUTSIDE RECORDS SUMMARY | 2024-12-08 05:48 | XMS_ITS | Encounter Summary ---
Author Organization [facility], [facility] Address [address] [place] [address] Phone Care Team Providers Care Exceptional Children'S Teacher Name Role Phone Kp Montanez DO Primary Care Provider [phone] Encounter Details Date Type Department Care Team (Late st Contact Info) Description 12/03/2024 Orders Only [facility] [address] [place] [address] Yesi Madison MD [address] [place] [address] Social History Tobacco Use Types [...] 12/04/2024 Unless otherwise specified, test(s) performed at: [facility], [address] [place] [address] ROLLER MAKER: Jose Martin Mariscal M.D. For any questions, please call customer service at FREQUENCY:OTHER Resulting Agency Comment Specimen source: Blood us Yesi Madison MD LAB BLOOD ORDERABLES Final Re sult frents See order comments or contact performing lab Unknown, [place] documented in this encounter Visit Diagnoses Not on filedocumented in this encounter Care Teams Exceptional Children'S Teacher Relationship Specialty Start Date End Date Kp Montanez DO [address] [place] [address] PCP - General Internal Medicine 01/07/23 documented as of this encounter
--- OUTSIDE RECORDS SUMMARY | 2024-12-08 05:48 | XMS_ITS | Encounter Summary ---
Author Organization [facility], [facility] Address [address] [place] [address] Phone Care Team Providers Care Signal Circuit Designer Name Role Phone MontanezKp kevin Primary Care Provider Encounter Details Date Type Department Care Team (Late st Contact Info) Description 07/14/2024 [facility] [address] [place] [address] Ayad Monahan, SHOVEL LOG LOADER OPERATOR [address] [place] [address] Social History Tobacco Use Types [...] 07/14/2024 The patient was seen for a lpkn-vy-[id number] visit as part of Transitional Care Management services. Attending Machinist Brake: RITA MENENDEZ Dialysis Location: [facility] Schedule: Shift: 1 HOSPITALIZATION SUMMARY Patient [...] 97.8*F Current Dialysis Vitals BP Sit: 140/78 AP/RESEARCH DIRECTOR: -- Pulse: 79 CARE COORDINATION Post-discharge follow-up appointments reviewed with the patient. COMMENTS: following Cardiology EDUCATION Education relevant to the discharge diagnosis provided to the patient or caregiver VISIT DIAGNOSES CPT Code 38922 - High complexity, seen 8-14 days post discharge or moderate complexity, seen days of discharge. R07.9 Chest pain, unspecified N18.6, Z99.2 End stage renal disease;Dependence on renal dialysis Signed by: AYAD MONAHAN NP on 07/14/2024 at 01:27:20 PM Transcribed by: AYAD MONAHAN NP on 07/14/2024 at 01:27:20 PM documented in this encounter Plan of Treatment Not on file documented as of this encounter Visit Diagnoses Not on filedocumented in this encounter Care Teams Signal Circuit Designer Relationship Specialty Start Date End Date Kp Montanez DO [address] [place] [address] PCP - General Internal Medicine 01/07/23 documented as of this encounter
--- OUTSIDE RECORDS SUMMARY | 2024-12-08 05:48 | XMS_ITS | Encounter Summary ---
Author Organization [facility] Address [address] [place] [address] Care Team Providers Care Fiber Optic Assembler Name Role Phone Dez Evans MD Primary Care Provider [phone] Reason for Visit * Reason Onset Date Comments Appointment Notification 09/24/2024 Encounter Details Date Type Department Care Team (Late st Contact Info) Description 09/24/2024 Telephone [facility] [address] [place] [address] Marla Rodriges FNP [address] [facility] [address] [place] [address] Appointment Notification Social History Tobacco Use Types Packs/Day Years Used Date Smoking Tobacco: Never Smokeless Tobacco: Never Alcohol Use Standard Drinks/Week Comments Not Currently 0 (1 standard drink = 0.6 oz pur e alcohol) rarely drinks since 2013 Sex and Gender Information Value Date Recorded Sex Assigned at Not on file Legal Sex Male 2:43 AM TRACK VEHICLE REPAIRER Gender Identity Not on file Sexual Orientation Not on file Occupation Industry Job Start Date Job End Date Not on file Not on file Not on file Not on file documented as of this encounter Miscellaneous Notes * Telephone Encounter - Carmen Sargent - 09/24/2024 10:35 AM CDT Provider: Antelmo MESSAGE Pt has an appt on 09/29/24 w / LAMINATION MACHINE OPERATOR Antelmo and he is needing to get this appt rescheduled, he has dialysis on that day, Saturday, Saturday or Saturday works the best, please advise. Carmen Sargent, [facility] Cardiology [facility], [facility] documented in this encounter Plan of Treatment Upcoming Encounters Date Type Department Care Team (Late st Contact Info) Description 02/12/2025 3:30 PM CDT Office Visit [facility] Vascular Surgery [place] [address] [place] [address] Shannan Goodwin MD [address] [place] [address] documented as of this encounter Visit Diagnoses Not on filedocumented in this encounter Additional Health Concerns Assessment Noted Time PHQ-9 Depression Total Score: 1 06/29/19 2:57 AM TRACK VEHICLE REPAIRER documented as of this encounter Care Teams Fiber Optic Assembler Relationship Specialty Start Date End Date Dez Evans MD [address] [place] [address] PCP - General Family Practice 06/18/24 documented as of this encounter
--- OUTSIDE RECORDS SUMMARY | 2024-12-08 05:48 | XMS_ITS | Encounter Summary ---
Author Organization [facility], [facility] Address [address] [facility] [address] [place] [address] Phone Care Team Providers Care Stick Inserter Name Role Phone Kp Montanez DO Primary Care Provider [phone] Reason for Visit * Reason Comments Med Refill Encounter Details Date Type Department Care Team (Late st Contact Info) Description 11/17/2021 Refill [facility] [address] [facility] [address] [place] [address] Antolin Weiss MD Social History [...] on filedocumented in this encounter Care Teams Stick Inserter Relationship Specialty Start Date End Date Kp Montanez DO [address] [place] [address] PCP - General Internal Medicine 01/07/23 documented as of this encounter
--- OUTSIDE RECORDS SUMMARY | 2024-12-08 05:48 | XMS_ITS | Encounter Summary ---
Author Organization [facility], [facility] Address [address] [place] [address] Phone Care Team Providers Care Herb Counselor Name Role Phone Montanez Kp Primary Care Provider [phone] Encounter Details Date Type Department Care Team (Late st Contact Info) Description 12/01/2024 Treatment [facility] [address] [place] [address] Ayad Monahan NP [address] [place] [address] End stage renal disease; Dependence [...] care for end stage renal disease. Attending Component Prep Operator: RITA MENENDEZ Dialysis Location: [facility] Schedule: Shift: 1 OVERVIEW Patient is stable. Patient has no complaints. COMMENTS: Seen on HD. No concerns. HOME MEDICATIONS [facility] Medications atorvastatin 40 mg tablet Take [...] Inject 52 unit subcutaneously every morning. [facility] Allerg[facility] Allergen: CODEINE Reaction: Throat Constriction Severity: [...] 98.0*F Current Dialysis Vitals BP Sit: 168/81 AP/1ST GRADE TEACHER: -- Pulse: 79 TREATMENT MEDICATIONS ORDERS Heparin [...] dialysis documented in this encounter Care Teams Herb Counselor Relationship Specialty Start Date End Date Kp Montanez DO [address] [place] [address] PCP - General Internal Medicine 01/07/23 documented as of this encounter
--- OUTSIDE RECORDS SUMMARY | 2024-12-08 05:48 | XMS_ITS | Encounter Summary ---
Author Organization [facility] Address [address] [place] [address] Care Team Providers Care Water Quality Analyst Name Role Phone Dez Evans MD Primary Care Provider [phone] Reason for Visit * Reason Onset Date Comments Question 12/04/2024 Encounter Details Date Type Department Care Team (Late st Contact Info) Description 12/04/2024 Telephone [facility] Vascular Surgery [place] [address] [facility] [address] [place] [address] Shannan Goodwin MD [address] [facility] [address] [place] [address] Question Social History Tobacco Use Types Packs/Day Years Used Date Smoking Tobacco: Never Smokeless Tobacco: Never Alcohol Use Standard Drinks/Week Comments Not Currently 0 (1 standard drink = 0.6 oz pur e alcohol) rarely drinks since 2013 Sex and Gender Information Value Date Recorded Sex Assigned at Not on file Legal Sex Male 2:43 AM MOTOR TRANSPORT INSPECTOR Gender Identity Not on file Sexual Orientation Not on file Occupation Industry Job Start Date Job End Date Not on file Not on file Not on file Not on file documented as of this encounter Miscellaneous Notes * Telephone Encounter - Winston Nguyen - 12/04/2024 3:25 PM CDT Christa (Provider) MESSAGE Pt is asking if Dr has rec'd msg sent from [employer]. documented in this encounter Plan of Treatment Upcoming Encounters Date Type Department Care Team (Late st Contact Info) Description 02/12/2025 3:30 PM CDT Office Visit [facility] Vascular Surgery [place] [address] [place] [address] Shannan Goodwin MD [address] [place] [address] documented as of this encounter Visit Diagnoses Not on filedocumented in this encounter Additional Health Concerns Assessment Noted Time PHQ-9 Depression Total Score: 1 06/29/19 25 2:57 AM MOTOR TRANSPORT INSPECTOR documented as of this encounter Care Teams Water Quality Analyst Relationship Specialty Start Date End Date Dez Evans MD [address] [place] [address] PCP - General Family Practice 06/18/24 documented as of this encounter
--- OUTSIDE RECORDS SUMMARY | 2024-12-08 05:48 | XMS_ITS | Encounter Summary ---
Author Organization [facility], [facility] Address [address] [facility] [address] [place] [address] Phone Care Team Providers Care Lpn Home Health Name Role Phone Kp Montanez DO Primary Care Provider [phone] Reason for Visit * Reason Comments Med Refill Encounter Details Date Type Department Care Team (Late st Contact Info) Description 05/08/2021 Refill [facility] [address] [facility] [address] [place] [address] Ghazal Schmitt NP [address] [facility] [address] [place] [address] Social History Tobacco Use Types [...] on filedocumented in this encounter Care Teams Lpn Home Health Relationship Specialty Start Date End Date Kp Montanez DO [address] [place] [address] PCP - General Internal Medicine 01/07/23 documented as of this encounter
--- OUTSIDE RECORDS SUMMARY | 2024-12-08 05:48 | XMS_ITS | Encounter Summary ---
Author Organization [facility] Address [address] [place] [address] Phone Care Team Providers Care Nursing Information Systems Coordinator Name Role Phone Kp Montanez DO Primary Care Provider [phone] Encounter Details Date Type Department Care Team (Late st Contact Info) Description 12/24/2018 Orders Only [facility] [address] [place] [address] Antolin Weiss MD Chronic kidney [...] Mckeon MA - 12/17/2018 2:15 PM CDT [facility] [address] [place], [place] [address] Antolin Weiss MD LAB BLOOD ORDERABLES Fi nal Result * PTH, intact (CKD3a) (12/17/2018 1:55 PM CDT) Parathyroid Hormone, Intact 119.3 pg/mL Blood specimen (specimen) 12/17/2018 1:55 PM CDT Leslie Mckeon MA - 12/17/2018 2:15 PM CDT [facility] [address] [place], [place] [address] Antolin Weiss MD LAB BLOOD ORDERABLES Fi [...] Benson MA - 12/17/2018 2:15 PM CDT [facility] [address] [place] [address] Antolin Weiss MD LAB BLOOD ORDERABLES Fi [...] Benson MA - 12/17/2018 2:15 PM CDT [facility] [address] [place], [place] [address] us Antolin Weiss MD LAB BLOOD ORDERABLES Fi nal Result documented in this encounter Visit Diagnoses Diagnosis Chronic kidney disease stage 3 (HCC) Type 2 diabetes mellitus with diabetic chronic kidney disease (HCC) documented in this encounter Care Teams Nursing Information Systems Coordinator Relationship Specialty Start Date End Date Kp Montanez DO [address] [place] [address] PCP - General Internal Medicine 01/07/23 documented as of this encounter
--- OUTSIDE RECORDS SUMMARY | 2024-12-08 05:48 | XMS_ITS | Encounter Summary ---
Author Organization [facility], [facility] Address [address] [place] [address] Phone Care Team Providers Care Time Stamp Assembler Name Role Phone MontanezKp kevin Primary Care Provider [phone] Encounter Details Date Type Department Care Team (Late st Contact Info) Description 09/29/2024 [facility], [facility] [address] [place] [address] Ayad Monahan, VEHICLE MECHANIC [address] [place] [address] Social History Tobacco Use Types [...] 09/29/2024 The patient was seen for a eyvn-io-ydjl visit as part of Transitional Care Management services. Attending Natural Resources Professor: RITA MENENDEZ Dialysis Location: [facility] Schedule: Shift: 1 INTERACTIVE CONTACT [...] 98.1*F Current Dialysis Vitals BP Sit: 159/81 AP/ANDROID PLATFORM DEVELOPER: 198/162 Pulse: 86 CARE COORDINATION No follow-up appointments noted. COMMENTS: no new referrals. EDUCATION Education relevant to the discharge diagnosis provided to the patient or caregiver IMPRESSION & PLAN COMMENTS: 1.hemodialysis access problem; fistulogram completed. Now working well. 2. ESRD on HD: Continue HD TTS. VISIT DIAGNOSES CPT Code 75859 - High complexity, seen within 7 days [...] on filedocumented in this encounter Care Teams Time Stamp Assembler Relationship Specialty Start Date End Date Kp Montanez DO [address] [place] [address] PCP - General Internal Medicine 01/07/23 documented as of this encounter
--- OUTSIDE RECORDS SUMMARY | 2024-12-08 05:48 | XMS_ITS | Patient Health Record ---
Author Organization [facility] Address [address] [place] [address] Care Team Providers Care Tandem Mill Sticker Name Role Phone Cristina RITTER, Dez Primary Care Provider UnavailElizabeth Jon Unavailable [phone] Pee Castaneda MD Unavailable Unavailable Ray Sherman Unavailable [phone] Shelley Llanes Unavailable [phone] Migration, Provider Unavailable Unavailable Ajit Silver Unavailable [phone] Allergies Allergen (clinical drug ingredient) Drug/Non Drug [...] Results Component Value Reference Range Flag Notes Tox Results Reviewed date:07/21/2024 11:36:15 AM Interpretation: Performing Lab: Notes/Report: Urine Confirmation Panel (in strument) - [id number] Reviewed date:09/01/2024 08:59:18 AM Interpretation: Performing Lab: [...] Food and Drug Administration. Tox Results Reviewed date:11/10/2024 02:08:00 PM Interpretation: Performing Lab: Notes/Report: Urine Drug Screen (cup read) - [id number] Reviewed date:11/05/2024 02:20:09 PM Interpretation: Performing Lab: Notes/Report: BUP + OPI + OXY + Urine Confirmation Panel (in strument) - [id number] Reviewed date:11/10/2024 02:00:57 PM Interpretation: Performing Lab: [...] the U.S. Food and Drug Administration. Gabapentin >75699 <225 ng/mL > This test was developed [...] by the U.S. Food and Drug Administration. Reason For Referral Reason Rectal Bleed COLON Referring Provider First Name Pee Referring Provider Last Name Leonel Referring Provider Speciality Family Med icine Referred Organization [facility] Referred Provider Ray Sherman Referred Address [address] [facility] [place],[address],[place] Referred Provider Specialty Gastroentero logy General Notes Taisha Godoy 09/22 04:14:39 PM >gas regulator repairer helper Referral Priority Routine Reason chronic back pain gr eater than three months duration Diagnosis 1 Other chronic pain ( G89.29) Referring Provider First Name Kp Referring Provider Last Name Lisseth Referring Provider Speciality Internal M edicine Referred Organization [facility] Referred Provider Eran Block Referred Address [address] [facility],[address],[place] Referred Provider Specialty Pain Medicin e General [...] W/U Status Risk Notes Problem Chronic pain (52405160) Other chronic pain (G89.29) Active confirmed Problem Chronic pain syndrome (384846645) Chronic pain syndrome (G89.4) Active confirmed Problem Cervical radiculopathy (47060530) Cervical radiculopathy (M54.12) Active confirmed Problem Lumbar radiculopathy (315882140) Lumbar radiculopathy (M54.16) Active confirmed Problem Long-term current use of drug therapy (021947704) Long-term use of high-risk medication (Z79.899) Active confirmed Problem Abnormal gait (89621621) Abnormality of gait and mobility (R26.9) Active confirmed Problem Atherosclerotic heart disease of [place] coronary artery without angina pectoris (561542799669486 ) Atherosclerotic heart disease of [place] coronary artery without angina pectoris (I25.10) Active confirmed [id number] ed Description:Patricia nary arteriosclerosis Problem Presence of coronary angioplasty implant and graft (Z95.5) Active confirmed [id number] om ed Description:Hist ory of placement of stent for coronary artery disease Problem Essential hypertension (84653937) Essential primary hypertension (I10) Active confirmed [id number] ed Description:Holger gn essential hypertension Vital Signs Heart Rate 82 /min 02/19/2024 Temperature 97.5 degrees Fahrenheit 02/19/2024 Respiratory Rate 18 /min 02/19/2024 Height-cm 165.1 cm 11/05/2024 Oximetry 93 % 02/19/2024 Weight-kg 90.72 kg 11/05/2024 Height 65 in 11/05/2024 Weight 200 lbs 11/05/2024 BMI 33.28 kg/m2 11/05/2024 Encounters Encounter Location Date Provider Diagnosis [facility] [address] [place] [address] 02/19/2024 Shelley Llanes Rectal bleeding K62. 5 [facility] [address] [address] 06/24/2024 Ajit Silver Chronic pain syndrom e G89.4 ; Lumbar radiculopathy M54.16 ; Atherosclerotic heart disease of [place] coronary artery without angina pectoris I25.10 ; Abnormality of gait and mobility R26.9 and Long-term use of high-risk medication Z79.899 [facility] [address] [address] 07/15/2024 Ajit Silver Chronic pain syndrom e G89.4 ; Lumbar radiculopathy M54.16 ; Atherosclerotic heart disease of [place] coronary artery without angina pectoris I25.10 and Long-term use of high-risk medication Z79.899 [facility] [address] [address] 09/02/2024 Ajit Silver Chronic pain syndrom e G89.4 ; Lumbar radiculopathy M54.16 ; Atherosclerotic heart disease of [place] coronary artery without angina pectoris I25.10 and Long-term use of high-risk medication Z79.899 [facility] [address] [address] 11/05/2024 Elizabeth Canales Chronic pain syndrom e G89.4 ; Cervical radiculopathy M54.12 ; Lumbar radiculopathy M54.16 ; Atherosclerotic heart disease of [place] coronary artery without angina pectoris I25.10 and Long-term use of high-risk medication Z79.899 [facility] 0 0 03/14/2024 Provider Migration [facility] 0 0 03/15/2024 Provider Migration [facility] [address] [place] [address] 01/16/2024 Shelley Llanes [facility] [address] [place] [address] 02/19/2024 [facility] [address] [place] [address] 02/24/2024 [facility] [address] [place] [address] 02/25/2024 [facility] [address] [place] [address] 03/09/2024 [facility] [address] [address] 11/05/2024 Ajit Silver Lumbar radiculopathy M54.16 Assessments Encounter Date Diagnosis (ICD Code) Assessment [...] effects are noted. Last UDS and [place] FLAT SURFACER reviewed today. Patient is advised that best [...] infarction and pneumonia and was in the [facility] for a bit of time. He has [...] effects are noted. Last UDS and [place] FLAT SURFACER reviewed today. Patient is advised that best [...] - M54.16) 07/15/2024 Atherosclerotic heart disease of [place] coronary artery without angina pectoris (ICD-10 - I25.10) [id number] Description:[place]amon ry arteriosclerosis 06/24/2024 Atherosclerotic heart disease of [place] coronary artery without angina pectoris (ICD-10 - I25.10) [id number]-Orarwh Description:[place]amon ry arteriosclerosis 07/15/2024 Long-term use of [...] testing policy. 09/02/2024 Atherosclerotic heart disease of [place] coronary artery without angina pectoris (ICD-10 - I25.10) [id number] Description:[place] arteriosclerosis 11/05/2024 Atherosclerotic heart disease of [place] coronary artery without angina pectoris (ICD-10 - I25.10) [id number] Description:[place] ry arteriosclerosis 06/24/2024 Abnormality of gait [...] Pending Test Test Name Order Date Diagnostic Colonoscopy-[id number] 02/19/2024 Next Appt Details Provider Name:Elizabeth verduzco, 01/07/2025 02:20:00 PM, [address] [place], [address], Insurance Providers Payer Name Payer Address Payer Phone Subscriber Number Group Number Insured Name Patient Relationship to Insured Coverage Start Date Coverage End Date [facility] Medicare Advantage - PPO [address] [address] [place] [address] [id number] Bret SMITHA Self - patient is the insured UHC Medicare Dual Complete PPO [address] [address] [place] [address] [id number] SMITHA Downey Self - patient is the insured [place] Medicaid [address] [place] [address] [id number] SMITHA Downey Self - patient is the insured Medical [...]
--- OUTSIDE RECORDS SUMMARY | 2024-12-08 05:48 | XMS_ITS | Clinical Summary ---
Author Organization [facility] Address [address] [place] [place] [address] Care Team Providers Care Certified Pedorthotist Name Role Phone Kp Montanez Primary Care [...] for Pain. 15 Tablet 04/10/2018 11:19 AM AXMINSTER WEAVER 8 Active nitroglycerin (NITROSTAT) 0.4 mg Tablet, [...] tablet Take 88 mcg by mouth daily broomcorn press feeder. Active metFORMIN (GLUCOPHAGE) 500 mg tablet Take 500 mg by mouth 2 times daily with meals. Active isosorbide mononitrate (IMDUR) 30 mg Extended Release 24 hour tablet Take 1 Tablet (30 mg) by mouth daily broomcorn press feeder. 30 Tablet 9 Active metoprolol tartrate (LOPRESSOR) [...] Overview (08/18/2012): secondary to fasciotomy Atherosclerosis of [place] co ronary artery of [place] heart with stable angina pectoris 08/18/2012 DM (diabetes mellitus), type 2, uncontrolled 05/2012 Hypothyroidism 08/18/2012 Benign hypertension CKD (chronic kidney disease) stage 2, GFR 60-89 ml/min Resolved Problems Problem Noted Date Diagnosed Date Resolved Date Acute chest pain 09/06/2018 10/27/2018 Elevated troponin 09/06/2018 10/27/2018 Grade I diastolic dysfunction 07/06/2018 10/27/2018 Chest pain 04/04/2018 07/06/2018 CAD in [place] artery 07/02/2013 019 CHF (congestive heart failure) [...] history exists Medical Devices Implanted Type Area Information Technology Data Analyst Device Identifier Shelf Expiration Date Model / Serial / Lot Port-06/04/2018 Implanted:2018 (Quantity not on file) Port Procedures Procedure Name Priority Date/Time Associated Diagnosis Comments LIPID PANEL Routine 01/25/2019 2:00 AM CDT HEMOGLOBIN A1C Routine 05/03/2014 9:04 AM AXMINSTER WEAVER DM (diabetes mellitus), type 2, uncontrolled HTN (hypertension), benign from Last 3 Months or Most Recently Relevant to Health Maintenance Results * (ABNORMAL) LIPID PANEL (01/25/2019 2:00 AM CDT) CHOLESTEROL 133 <200 mg/dL 01/25/2019 2:42 AM CDT [facility] TRIGLYCERIDE 177(H) <150 mg/dL 01/25/2019 2:42 AM CDT [facility] HDL 33(L) 40 - 59 mg/dL 01/25/2019 2:42 AM CDT [facility] LDL CALCULATED 65 <100 mg/dL 01/25/2019 2:42 AM CDT [facility] NON-HDL CHOLESTEROL 100 <130 mg/dL 01/25/2019 2:42 AM CDT [facility] Blood Venipuncture / Unknown 01/25/2019 2:00 AM CDT 01/25/2019 2:15 AM CDT Narrative [facility] - 01/25/2019 2:42 AM CDT [...] John Teixeira MD CHEMISTRY ORDERABLES Final Result [facility] CLIA# [id number] [address] [place] [address] * (ABNORMAL) HEMOGLOBIN A1C (05/03/2014 9:04 AM AXMINSTER WEAVER) HEMOGLOBIN A1C 9.0(H) 4.0 - 6.0 % [facility] Comment: This test was performed on a [employer] VARIANT II instrument using HPLC methodology. Blood specimen (specimen) 05/03/2014 9:04 AM AXMINSTER WEAVER 05/03/2014 9:05 AM AXMINSTER WEAVER us Nicolasa Acosta GOVERNOR ASSEMBLER CHEMISTRY ORDERABLES Final R esult INTERFACE SYSTEM Refer to clinic/hospital department [facility] CLIA# [id number] [address] [place] [address] from Last 3 Months or Most Recently Relevant to Health Maintenance Insurance [place] [address] [place] [address] DUAL COMPLETE [facility] PPO D-SNP RX [employer] PLANS (INTERNAL) [facility] Plans RX OPTUM RX Member Subscriber Plan / Payer (Ef fective for All Dates) Name:Rei Queen II Relation to Subscriber:Self Name:Rei Queen II Payer ID:Not on file Group ID:[id number] Type:RX Medicare Part D Address: [address]ISE[address]IEL[address] Advance Directives For more information, please contact: [phone] * Full Code (Latest Code Status on [...] 9:34 PM 04/10/2018 3:22 PM Care Teams Certified Pedorthotist Relationship Specialty Start Date End Date Kp Montanez DO [address] [address] PCP - General Internal Medicine 04/04/18
--- OUTSIDE RECORDS SUMMARY | 2024-12-08 05:48 | XMS_ITS | Encounter Summary ---
Author Organization [facility] Address [address] [address] [place] [address] Phone Care Team Providers Care Forest Aide Name Role Phone Kp Montanez DO Primary Care Provider [phone] Reason for Visit * Reason Comments Med Refill Encounter Details Date Type Department Care Team (Late st Contact Info) Description 03/07/2022 Refill [facility] [address] [place] [address] Ghazal Schmitt, WEATHER OBSERVER [address] [facility] [place] [address] Chronic combined systolic and diastolic [...] failure documented in this encounter Care Teams Forest Aide Relationship Specialty Start Date End Date Kp Montanez DO [address] [place] [address] PCP - General Internal Medicine 01/07/23 documented as of this encounter
--- NOTE | 2024-12-08 06:36 | PM.CONSULT ---
Providers/Reason For Consult Consulting Physician/Specialty*: kommana/Nephrology Reason for Consult*: ESRD Attending Physician: Nancy Watson MD Primary Care Provider: Dez Evans MD History of Present Illness History of Present Illness Rei Queen II is a 54 year old male Patient is a 54-year-old male with past medical history of coronary artery disease and multiple stents, DVT, diabetes, end-stage renal disease on dialysis per TTS schedule presented to the emergency department due to complaints of chest pain. Recent ejection fraction was 34%. Also patient reported elevated blood pressures. In the ER his blood pressure was 179/100, he was on room air, lab data showed hemoglobin of 11.5 potassium 4.2 creatinine 3.2 chest x-ray with no acute findings patient admitted for further management. Review of Systems Narrative: NEGATIVE Medications/Allergies Home Medications ?Medication ?Instructions ?Recorded ?Confirmed ?Last Taken ?Type atorvastatin 40 mg tablet 40 mg PO QAM #90 tabs 10/25/22 12/08/24 12/07/24 Rx diphenhydramine HCl 25 mg tablet 50 mg PO DAILY PRN Allergy Symptoms 05/02/23 12/08/24 03/23/24 History (Benadryl Allergy) insulin lispro 100 unit/mL See Rx Instructions .Route .COMPLEX 05/02/23 12/08/24 05/07/24 History subcutaneous pen (Humalog KwikPen (U-100) Insulin) nitroglycerin 0.4 mg sublingual 0.4 mg sublingual Q5M PRN Chest 08/27/23 12/08/24 06/04/24 Rx tablet (Nitrostat) Pain #25 tabs isosorbide mononitrate 30 mg See Rx Instructions .Route 10/03/23 12/08/24 12/07/24 Rx tablet,extended release 24 hr .COMPLEX #30 tabs vit B,C-folic ac 800 mcg-zinc 12.5 1 tab PO BEDTIME 10/29/23 12/08/24 12/06/24 History mg-selen-D3 2,000 unit-vit E tablet (RenaPlex-D) aspirin 81 mg tablet,delayed 81 mg PO DAILY #90 tabs 10/30/23 12/08/24 12/07/24 Rx release tamsulosin 0.4 mg capsule 0.4 mg PO DAILY 1112/08/24 12/07/24 History tizanidine 2 mg tablet 2 mg PO BID 03/24/24 12/08/24 12/07/24 History pantoprazole 40 mg tablet,delayed 40 mg PO DAILY #30 tabs 03/26/24 12/08/24 12/07/24 Rx release colchicine 0.6 mg tablet 0.3 mg (1/2 x 0.6 mg) PO DAILY #60 04/08/24 12/08/24 12/07/24 Rx tabs bumetanide 2 mg tablet 2 mg PO BID 04/15/24 12/08/24 12/07/24 History bupropion HCl 300 mg 24 hr tablet, 300 mg PO QAM #30 tabs 04/20/24 12/08/24 12/07/24 Rx extended release buspirone 10 mg tablet 10 mg PO BID #60 tabs 04/20/24 12/08/24 12/07/24 Rx fluoxetine 40 mg capsule 40 mg PO QAM #30 caps 04/20/24 12/08/24 12/07/24 Rx trazodone 100 mg tablet 300 mg (3 x 100 mg) PO BEDTIME PRN 04/20/24 12/08/24 12/06/24 Rx insomia #90 tabs carvedilol 6.25 mg tablet 6.25 mg PO BID 04/21/24 12/08/24 12/07/24 History hydroxyzine HCl 50 mg tablet 100 mg PO BEDTIME PRN insomnia 04/21/24 12/08/24 06/03/24 History promethazine 25 mg tablet 25 mg PO Q6H PRN Nausea 04/21/24 12/08/24 Unknown History sevelamer carbonate 800 mg tablet 800 mg PO BID 05/27/24 12/08/24 12/07/24 History acetaminophen 500 mg tablet 1,000 mg PO QID PRN Pain 06/04/24 12/08/24 Unknown History (Tylenol Extra Strength) hydrocodone 5 mg-acetaminophen 325 1 tab PO Q6H 06/16/24 12/08/24 12/07/24 History mg tablet metoprolol tartrate 25 mg tablet 12.5 mg PO BID 06/16/24 12/08/24 12/07/24 History mupirocin 2 % topical ointment 1 applic topical BID #15 grams 06/23/25 07/22/25 Unknown Rx (Centany) tirzepatide 15 mg/0.5 mL See Rx Instructions .Route 11/18/24 12/08/24 12/02/24 Rx subcutaneous pen injector .COMPLEX #2 mL (Mounjaro) apixaban 2.5 mg tablet (Eliquis) 2.5 mg PO BID 12/08/24 12/08/24 12/07/24 History fexofenadine 180 mg tablet 180 mg PO DAILY 12/08/24 12/08/24 12/07/24 History (Allergy Relief (fexofenadine)) gabapentin 300 mg capsule 300 mg PO BID 12/08/24 12/08/24 12/07/24 History insulin degludec 200 unit/mL (3 40 unit SUBCUT BEDTIME 12/08/24 12/08/24 12/06/24 History mL) subcutaneous pen (Tresiba FlexTouch U-200 insulin) levothyroxine 88 mcg tablet 88 mcg PO QAM 12/08/24 12/08/24 12/07/24 History nifedipine 30 mg tablet,extended 30 mg PO QAM 12/08/24 12/08/24 12/07/24 History release 24 hr ranolazine 1,000 mg 1,000 mg PO BID 12/08/24 12/08/24 12/07/24 History tablet,extended release,12 hr Allergies Allergy/AdvReac Type Severity Reaction Status Date / Time Iodinated Contrast Media Allergy Severe ALGY-Difficulty Verified 11/13/24 09:33 Breathing iodine Allergy Severe ALGY-Difficulty Verified 11/13/24 09:33 Breathing metoclopramide (From Reglan) Allergy Severe ALGY-Difficulty Verified 11/13/24 09:33 Breathing nalbuphine (From Nubain) Allergy Severe ADR-Diarrhe Verified 11/13/24 09:33 a naproxen (From Naprosyn) Allergy Severe ADR-Vomitin Verified 11/13/24 09:33 g Sulfa (Sulfonamide Allergy Severe ALGY-Difficulty Verified 11/13/24 09:33 Antibiotics) Breathing ketorolac Allergy Intermediate ADR-Nausea Verified 11/13/24 09:33 ondansetron (From Zofran) Allergy Intermediate ADR-Abdominal Verified 11/13/24 09:33 Pain prochlorperazine (From Allergy Intermediate ADR-Irritab Verified 11/13/24 09:33 Compazine) le codeine AdvReac Severe ALGY-Anaphy Verified 11/13/24 09:33 laxis haloperidol (From Haldol) AdvReac Intermediate ADR-Irritab Verified 11/13/24 09:33 le Current Medications Generic Name Dose Route Start Last Admin Trade Name Freq PRN Reason Stop Dose Admin Morphine Sulfate 2 mg 12/07/24 22:20 12/07/24 23:17 Morphine 4 Mg/Ml Sdv 1 Ml IVP 2 mg Q6H PRN Administration SEVERE PAIN Nitroglycerin 1 inch 12/07/24 22:30 12/07/24 23:17 Nitroglycerin 1 Gm/Inch Oint Pkt TOPICAL 1 inch Q6H RANDY Administration Promethazine HCl 12.5 mg 12/07/24 22:20 12/07/24 23:17 Promethazine 25 Mg Tablet PO 12.5 mg Q6H PRN Administration NAUSEA Ranolazine 1,000 mg 12/07/24 22:45 12/07/24 23:17 Ranolazine (12hr) 500 Mg Tablet PO 1,000 mg Q12H RANDY Administration Trazodone HCl 300 mg 12/07/24 23:45 12/08/24 00:45 Trazodone 150 Mg Tablet PO 300 mg BEDTIME RANDY Administration PFSH Acute PFSH: Medical History (Updated 12/08/24 @ 10:28 by Clemencia Gibson MD) ESRD (end stage renal disease) Hypothyroidism Generalized anxiety disorder Major depressive disorder, recurrent severe without psychotic features Pericarditis Elevated troponin Essential hypertension Essential hypertension ESRD (end stage renal disease) Hypertension Psychiatric care 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 mellitus Chronic renal failure Chest pain Chest pain CRF (chronic renal failure) Chronic right SI joint pain Chronic systolic heart failure UTI (urinary tract infection) Peripheral arterial disease PVD (peripheral vascular disease) Worsening angina Angina at rest Chest pain Uremic encephalopathy ESRD (end stage renal disease) D-dimer, elevated Acute on chronic congestive heart failure History of pulmonary embolism Diabetes Acute kidney injury superimposed on CKD GERD (gastroesophageal reflux disease) Alcohol use disorder, moderate, in sustained remission DVT (deep venous thrombosis) (~03/2020) Proximal left subclavian, basilic and brachial veins, started eliquis this stay, felt present prior to admission Chronic kidney disease -baseline Cr appears to be around 1.5 Atherosclerotic heart disease of [place] coronary artery with other forms of angina pectoris hx of CAD with prior stenting of proximal LAD, LCx, RCA Ischemic cardiomyopathy Onychodystrophy Chronic anticoagulation Eliquis Osteoarthritis of spine Hypertension Hyperlipidemia Diabetes Depression Anemia Foot drop, left H/O acute myocardial infarction H/O deep venous thrombosis developed compartment syndrome Surgical History Peritoneal dialysis catheter in situ (06/15/21) History of appendectomy 1995 History of excision of mass 06/08/2019: Subcutaneous mass on back History of removal of Port-a-Cath Port-A-Cath in place H/O vasectomy Hx of cholecystectomy History of coronary artery stent placement 5x H/O skin graft History of inguinal hernia repair, bilateral 2000 H/O removal of testicle left H/O colonoscopy (11/14/20) 08/2015 H/O esophagogastroduodenoscopy (11/14/20) 08/2015 Family History Grandfather Cancer skin cancer Parkinson disease Brother Hypertension Father Heart disease Mother Hypertension Stroke Aneurysm Grandmother Aneurysm Other Crohn's disease Denies family history of Anesthesia complication Bleeding disorder Social History Smoking and tobacco/nicotine status: never used tobacco/nicotine Second hand smoke exposure: No Alcohol intake: former Year of sobriety/quit date alcohol: 2015 Former alcohol use details: Only holidays - last use 05.19.2015 Substance/Drug Use: never Adopted: No Caregiver/support person: No Lives independently: Yes Household members: spouse Housing: Apartment Marital status: Number of children: 2 Number of grandchildren: 0 Highest education level completed: High School Graduate service: No Current occupational status: disabled Pets and animals: Yes Pets & animals: dog(s) Leisure activites: games and other Leisure activities details: watching TV Sexually active: Yes Do you think of yourself as: Straight/Heterosexual Current gender identity: Male Shannon/Druze: Congregation Special shannon needs: No Agree to transfusion: Yes Vitals/I&O/Wt Last Vital Signs Temp 98.1 F 12/07/24 16:31 Pulse 69 12/08/24 05:00 Resp 17 12/08/24 05:00 BP 114/57 12/08/24 05:00 Pulse Ox 91 12/08/24 05:00 O2 Del Method Room Air 12/08/24 05:00 12/07/24 12/07/24 12/08/24 14:59 22:59 06:59 Intake Total 0 / 0 Balance 0 / 0 Weight last 48 hrs Weight 88.904 kg Physical Exam Narrative: awake , alert PEERLA S1S2 RRR per report Lung clear per report No edema Data 12/08/24 02:13 12/08/24 02:13 A&P Assessment and plan 1. ESRD (end stage renal disease): Plan: 1. End-stage renal disease: Will continue dialysis per TTS schedule and ultrafiltration as tolerated 2. Hypertensive urgency: Resumed home meds and reevaluate after dialysis today and adjust meds as needed 3. Chest pain: Noted recent stress test which showed abnormal myocardial perfusion imaging, ejection fraction 34%, cardiology was consulted. 4. Anemia: Hemoglobin at goal per CKD 5. MBD: Will resume home binders Patient evaluated using audiovisual cart. Time spent 40 minutes PDMP PDMP Reviewed: Not Reviewed Consult Attestations Medical Necessity Statement: per medicine Coding Level of Care Code Acute Code for Chg Fwd Diagnoses ESRD (end stage renal disease) N18.6
[2024-12-08] MEDS: nitroglycerin 1 gm/inch oint Pkt 1 INCH TOPICAL ×3 (06:38→21:37)
[2024-12-08] MEDS: morphine 4 mg/mL SDV 1 mL 2 MG IVP ×4 (06:38→21:41)
--- NOTE | 2024-12-08 08:03 | PC.NURSE ---
PER VERBAL ORDER FROM DR. HYDE TO ORDER INDOMETHACIN 50MG PO Q8H.
--- NOTE | 2024-12-08 08:11 | PC.NURSE ---
PER VERBAL VERIFICATION WITH PHARMACIST LEILANI, INDOMETHACIN SAFE TO GIVE PT WITH CURRENT PT ALLERGIES.
--- NOTE | 2024-12-08 08:36 | P.CONIM_ITS ---
<Statement entered by Rosi Vee MD - 12/14/24 14:36> Patient was evaluated and cared for in conjunction with an advanced practice practitioner. I personally examined the patient and reviewed the chart and all pertinent data including imaging, telemetry, and laboratory results. I discussed the patient in detail with the advanced practice practitioner. Please see their note for complete H&P testing result and agreed upon plan of care for the patient. Providers/Reason For Consult 2 Consulting Physician/Specialty*: Dr Cleve Vee, cardiology Reason for Consult*: chest pain Attending Physician: Jaydon Juarez MD Primary Care Provider: Dez Evans MD History of Present Illness History of Present Illness Rei Queen II is a 54 year old male with past medical history of CAD previous stents, DVT anticoagulated with Eliquis, end-stage renal disease on dialysis (Sat), hypertension, chronic systolic heart failure, diabetes, hyperlipidemia. He presented to the emergency room yesterday with chest pain, similar to the chest pain he has experienced before, located in the left chest and back, radiating to neck. Troponin series: 52-> 50-> 56. He was evaluated in the emergency room last night by Dr. Vee, chest pain felt to be atypical. Review of Systems 2 Const: Denies: fever(s), chills, change in weight, fatigue or diaphoresis Eyes: Denies: change in vision ENMT: Denies: epistaxis Card: Denies: chest pain, palpitations, irregular heart rhythm, edema, syncope, pre-syncope, dyspnea on exertion, orthopnea or leg pain with exertion Resp: Denies: dyspnea, productive cough or wheezing GI: Denies: nausea, vomiting, hematemesis, hematochezia or melena : Denies: hematuria Musc: Denies: extremity swelling Dewey/Lymph: Denies: easy bruising or easy bleeding Medications/Allergies Home Medications ?Medication ?Instructions ?Recorded ?Confirmed ?Last Taken ?Type atorvastatin 40 mg tablet 40 mg PO QAM #90 tabs 12/08/24 12/07/24 Rx diphenhydramine HCl 25 mg tablet 50 mg PO DAILY PRN Al lergy Symptoms 05/02/23 12/08/24 03/23/24 History (Benadryl Allergy) insulin lispro 100 unit/mL See Rx Instructions .Route .COMPLEX 12/14/23 07/22/25 12/19/24 History subcutaneous pen (Humalog KwikPen (U-100) Insulin) nitroglycerin 0.4 mg sublingual 0.4 mg sublingual Q5M PRN Chest 08/27/23 12/08/24 06/04/24 Rx tablet (Nitrostat) Pain #25 tabs isosorbide mononitrate 30 mg See Rx Instructions .Rout e 10/03/23 12/08/24 12/07/24 Rx tablet,extended release 24 hr .COMPLEX #30 tabs vit B,C-folic ac 800 mcg-zinc 12.5 1 tab PO BEDTIME 12/08/24 12/06/24 History mg-selen-D3 2,000 unit-vit E tablet (RenaPlex-D) aspirin 81 mg tablet,delayed 81 mg PO DAILY #90 tabs 0 10/30/23 12/08/24 12/07/24 Rx release tamsulosin 0.4 mg capsule 0.4 mg PO DAILY 03/24/2412/07/24 History tizanidine 2 mg tablet 2 mg PO BID 03/24/24 5 12/07/24 History pantoprazole 40 mg tablet,delayed 40 mg PO DAILY #30 t abs 03/26/24 12/08/24 12/07/24 Rx release colchicine 0.6 mg tablet 0.3 mg (1/2 x 0.6 mg) PO MARJ LY #60 04/08/24 12/08/24 12/07/24 Rx tabs bumetanide 2 mg tablet 2 mg PO BID 04/15/24 5 12/07/24 History bupropion HCl 300 mg 24 hr tablet, 300 mg PO QAM #30 t abs 04/20/24 12/08/24 12/07/24 Rx extended release buspirone 10 mg tablet 10 mg PO BID #60 tabs 12/08/24 12/07/24 Rx fluoxetine 40 mg capsule 40 mg PO QAM #30 caps 12/08/24 12/07/24 Rx trazodone 100 mg tablet 300 mg (3 x 100 mg) PO BEDTI ME PRN 04/20/24 12/08/2412/06/25 Rx insomia #90 tabs carvedilol 6.25 mg tablet 6.25 mg PO BID 04/21/2411/1812/07/24 History hydroxyzine HCl 50 mg tablet 100 mg PO BEDTIME PRN ins omnia 04/21/24 12/08/24 06/03/24 History promethazine 25 mg tablet 25 mg PO Q6H PRN Nausea 12/0 08/1012/08/24 Unknown History sevelamer carbonate 800 mg tablet 800 mg PO BID 12/08/24 12/07/24 History acetaminophen 500 mg tablet 1,000 mg PO QID PRN Pain 0 06/04/24 12/08/24 Unknown History (Tylenol Extra Strength) hydrocodone 5 mg-acetaminophen 325 1 tab PO Q6H 12/08/24 12/07/24 History mg tablet metoprolol tartrate 25 mg tablet 12.5 mg PO BID 12/08/24 12/07/24 History mupirocin 2 % topical ointment 1 applic topical BID #1 5 grams 11/09/24 12/08/24 Unknown Rx (Kevin) tirzepatide 15 mg/0.5 mL See Rx Instructions .Route 0 11/18/24 12/08/24 12/02/24 Rx subcutaneous pen injector .COMPLEX #2 mL (Jennifer) apixaban 2.5 mg tablet (Eliquis) 2.5 mg PO BID 5 12/08/24 12/07/24 History fexofenadine 180 mg tablet 180 mg PO DAILY 12/08/2412/07/24 History (Allergy Relief (fexofenadine)) gabapentin 300 mg capsule 300 mg PO BID 12/08/2412/0812/07/24 History insulin degludec 200 unit/mL (3 40 unit SUBCUT BEDTIME 12/08/24 12/08/24 12/06/24 History mL) subcutaneous pen (Tresiba FlexTouch U-200 insulin) levothyroxine 88 mcg tablet 88 mcg PO QAM 12/08/2412/07/24 History nifedipine 30 mg tablet,extended 30 mg PO QAM 12/08/24 12/08/24 12/07/24 History release 24 hr ranolazine 1,000 mg 1,000 mg PO BID 12/08/2412/07/24 History tablet,extended release,12 hr Allergies Allergy/AdvReac Type Severity Reaction Status Date / Time Iodinated Contrast Media Allergy Severe ALGY-Difficulty Verified 11/13/24 09:33 Breathing iodine Allergy Severe ALGY-Difficulty Verified 11/13/24 09:33 Breathing metoclopramide (From Reglan) Allergy Severe ALGY-Difficulty Verified 11/13/24 09:33 Breathing nalbuphine (From Nubain) Allergy Severe ADR-Diarrhe Verified 11/13/24 09:33 a naproxen (From Naprosyn) Allergy Severe ADR-Vomitin Verified 11/13/24 09:33 g Sulfa (Sulfonamide Allergy Severe ALGY-Difficulty Verified 11/13/24 09:33 Antibiotics) Breathing ketorolac Allergy Intermediate ADR-Nausea Verified 11/13/24 09:33 ondansetron (From Zofran) Allergy Intermediate ADR-Abdominal Verified 11/13/24 09:33 Pain prochlorperazine (From Allergy Intermediate ADR-Irritab Verified 11/13/24 09:33 Compazine) le codeine AdvReac Severe ALGY-Anaphy Verified 11/13/24 09:33 laxis haloperidol (From Haldol) AdvReac Intermediate ADR-Irritab Verified 11/13/24 09:33 le Current Medications Generic Name Dose Route Start Last Admin Trade Name Gilma PRN Reason Stop Dose Admin Apixaban 2.5 mg 12/08/24 09:00 12/08/24 08:20 Apixaban 5 Mg Tablet PO 2.5 mg BID RANDY Administration Bumetanide 1 mg 12/08/24 08:00 12/08/24 08:20 Bumetanide 1 Mg Tablet PO 1 mg BIDWM RANDY Administration Carvedilol 6.25 mg 12/08/24 09:00 12/08/24 08:20 Carvedilol 6.25 Mg Tablet PO 6.25 mg BID RANDY Administration Clopidogrel Bisulfate 75 mg 12/08/24 09:00 12/08/24 08:20 Clopidogrel 75 Mg Tablet PO 75 mg DAILY RANDY Administration Indomethacin 50 mg 12/08/24 08:00 12/08/24 08:20 Indomethacin 25 Mg Capsule PO 50 mg Q8H RANDY Administration Morphine Sulfate 2 mg 12/07/24 22:20 12/08/24 06:38 Morphine 4 Mg/Ml Sdv 1 Ml IVP 2 mg Q6H PRN Administration SEVERE PAIN Nitroglycerin 1 inch 12/07/24 22:30 12/08/24 06:38 Nitroglycerin 1 Gm/Inch Oint Pkt TOPICAL 1 inch Q6H RANDY Administration Pantoprazole Sodium 40 mg 12/08/24 09:00 12/08/24 08:[address] 40 Mg Tablet PO 40 mg DAILY RANDY Administration Promethazine HCl 12.5 mg 12/07/24 22:20 12/07/24 23:17 Promethazine 25 Mg Tablet PO 12.5 mg Q6H PRN Administration NAUSEA Ranolazine 1,000 mg 12/07/24 22:45 12/07/24 23:17 Ranolazine (12hr) 500 Mg Tablet PO 1,000 mg Q12H RANDY Administration Trazodone HCl 300 mg 12/07/24 23:45 12/08/24 00:45 Trazodone 150 Mg Tablet PO 300 mg BEDTIME RANDY Administration PFSH Acute 2 PFSH: Medical History (Updated 12/08/24 @ 13:44 by MELISSA [place]) Atherosclerotic heart disease of [place] coronary artery with other forms of angina pectoris hx of CAD with prior stenting of proximal LAD, LCx, RCA ESRD (end stage renal disease) Hypothyroidism Generalized anxiety disorder Major depressive disorder, recurrent severe without psychotic features Pericarditis Elevated troponin Essential hypertension Essential hypertension ESRD (end stage renal disease) Hypertension Psychiatric care 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 mellitus Chronic renal failure Chest pain Chest pain CRF (chronic renal failure) Chronic right SI joint pain Chronic systolic heart failure UTI (urinary tract infection) Peripheral arterial disease PVD (peripheral vascular disease) Worsening angina Angina at rest Chest pain Uremic encephalopathy ESRD (end stage renal disease) D-dimer, elevated Acute on chronic congestive heart failure History of pulmonary embolism Diabetes Acute kidney injury superimposed on CKD GERD (gastroesophageal reflux disease) Alcohol use disorder, moderate, in sustained remission DVT (deep venous thrombosis) (~03/2020) Proximal left subclavian, basilic and brachial veins, started eliquis this stay, felt present prior to admission Chronic kidney disease -baseline Cr appears to be around 1.5 Ischemic cardiomyopathy Onychodystrophy Chronic anticoagulation Eliquis Osteoarthritis of spine Hypertension Hyperlipidemia Diabetes Depression Anemia Foot drop, left H/O acute myocardial infarction H/O deep venous thrombosis developed compartment syndrome Surgical History Peritoneal dialysis catheter in situ (06/15/21) History of appendectomy 1995 History of excision of mass 06/08/2019: Subcutaneous mass on back History of removal of Port-a-Cath Port-A-Cath in place H/O vasectomy Hx of cholecystectomy History of coronary artery stent placement 5x H/O skin graft History of inguinal hernia repair, bilateral 2000 H/O removal of testicle left H/O colonoscopy (11/14/20) 08/2015 H/O esophagogastroduodenoscopy (11/14/20) 08/2015 Family History Grandfather Cancer skin cancer Parkinson disease Brother Hypertension Father Heart disease Mother Hypertension Stroke Aneurysm Grandmother Aneurysm Other Crohn's disease Denies family history of Anesthesia complication Bleeding disorder Social History Smoking and tobacco/nicotine status: never used tobacco/nicotine Second hand smoke exposure: No Alcohol intake: former Year of sobriety/quit date alcohol: 2015 Former alcohol use details: Only holidays - last use 05.19.2015 Substance/Drug Use: never Adopted: No Caregiver/support person: No Lives independently: Yes Household members: spouse Housing: Apartment Marital status: Number of children: 2 Number of grandchildren: 0 Highest education level completed: High School Graduate service: No Current occupational status: disabled Pets and animals: Yes Pets & animals: dog(s) Leisure activites: games and other Leisure activities details: watching TV Sexually active: Yes Do you think of yourself as: Straight/Heterosexual Current gender identity: Male Shannon/Hinduism: Protestant Special shannon needs: No Agree to transfusion: Yes Vitals/I&O/Wt Last Vital Signs Temp 98.1 F 12/07/24 16:31 Pulse 69 12/08/24 06:38 Resp 17 12/08/24 06:38 BP 138/72 12/08/24 06:38 Pulse Ox 95 12/08/24 06:38 O2 Del Method Room Air 12/08/24 05:00 12/07/24 12/08/24 12/08/24 22:59 06:59 14:59 Intake Total 0 / 0 Balance 0 / 0 Weight last 48 hrs Weight 196 lb Physical Exam 2 Const: COMMON NORMALS: no acute distress and patient oriented x3 GENERAL APPEARANCE: cooperative and comfortable ORIENTATION/CONSCIOUSNESS: Yes awake, Yes oriented to person, Yes oriented to place and Yes oriented to time Chest: COMMONS NORMALS: normal inspection of the chest and normal palpation of entire chest wall CHEST: Yes Symmetrical chest wall rise Resp: COMMON NORMALS: normal respiratory effort, No retractions, No use of accessory muscles and clear to auscultation bilaterally EFFORT & INSPECTION: Yes symmetric chest movement AUSCULTATION: clear to auscultation bilaterally Cardio: COMMON NORMALS: regular rate, regular rhythm, S1 normal heart sound present, S2 normal heart sound present, No gallops present (Cardio), No clicks present (Cardio), No murmurs present (Cardio) and No rub (Cardio) RATE: r egular rate RHYTHM: regular rhythm HEART SOUNDS: S1 normal heart sound present and S2 normal heart sound present PERIPHERAL PULSES: radial pulses present Extremity: COMMON NORMALS: no pedal edema Neuro: COMMON NORMALS: patient oriented x3 and moves all extremities S ENSORIUM/ORIENTATION: Yes oriented to person, Yes oriented to place and Yes oriented to time Data 12/08/24 02:13 12/08/24 02:13 A&P Assessment and plan 1. Chest pain: 2. Hypertension: 3. Elevated troponin: 4. ESRD (end stage renal disease): 5. Atherosclerotic heart disease of [place] coronary artery with other forms of angina pectoris: Plan: He was started on indomethacin last night, as of my evaluation chest pain is rated 2 out of 10. He had a recent stress test 12/02/2024 that did not show ischemia. Will continue to monitor chest pain, continue Plavix. Also restart Eliquis, carvedilol, Bumex, Ranexa per his home medications. PDMP PDMP Reviewed: Not Reviewed Coding Level of Care Code Acute Code for [facility] Fwd Diagnoses Chest pain R07.9 Hypertension I10 Elevated troponin R79.89 ESRD (end stage renal disease) N18.6 Atherosclerotic heart disease of [place] coronary 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
--- NOTE | 2024-12-08 10:22 | PC.PHAR ---
Pt states none of his medications have changed since last discharge on 11/06/24.
[2024-12-08] MEDS: ranolazine (12HR) 500 mg Tablet 1000 MG PO ×2 (11:46→21:46)
--- NOTE | 2024-12-08 11:55 | PC.NURSE ---
Patient left floor for dialysis at 1145.
[2024-12-08] MEDS: heparin, porcine 1,000 unit/mL INJ 10 mL 1000 UNIT IV (12:15)
[2024-12-08] MEDS: diphenhydrAMINE 50 mg/mL SDV 1mL IVP (13:19)
--- NOTE | 2024-12-08 16:50 | P.PN_ITS ---
Subjective 2 Subjective: Patient was seen this morning, does complain of shortness of breath, no chest pain, no palpitations, no lightheadedness, dizziness, Vitals/I&O/Wt Last Vital Signs Temp 97.5 F L 12/08/24 16:00 Pulse 70 12/08/24 16:00 Resp 14 12/08/24 16:00 BP 115/46 12/08/24 16:00 Pulse Ox 92 12/08/24 16:00 O2 Del Method Room Air 12/08/24 16:00 Weight last 48 hrs Weight 88.904 kg Physical Exam 2 Const: COMMON NORMALS: no acute distress and patient oriented x3 Resp: COMMON NORMALS: normal respiratory effort, No retractions and No use of accessory muscles AUSCULTATION: crackles and wheezes Cardio: COMMON NORMALS: regular rate, regular rhythm, S1 normal heart sound present and S2 normal heart sound present RATE: regular rate RHYTHM: r egular rhythm HEART SOUNDS: S1 normal heart sound present and S2 normal heart sound present GI: COMMON NORMALS: Normal to inspection, nondistended, normoactive bowel sounds present and non-tender Extremity: COMMON NORMALS: no pedal edema Neuro: COMMON NORMALS: patient oriented x3 Psych: COMMON NORMALS: mental status grossly normal Data 12/08/24 02:13 12/08/24 02:13 A&P Assessment and plan 1. Chest pain: Cardiac echo September 2023 CONCLUSIONS LV systolic function is moderately reduced with EF of 35-40%. Grade 1 diastolic dysfunction Left atrial dilation Mild mitral regurgitation Mild pulmonic regurgitation Compared to prior echocardiogram from 2021, LV systolic function is improved and is moderately reduced. Cardiac cath March 2024 - 80% proximal RCA in-stent restenosis, treated with balloon angioplasty -80% hazy distal circumflex stent edge stenosis, treated with balloon angioplasty -previously placed stent including proximal LAD and PDA appear to be patent with mild in-stent restenosis Stress test November 2024 IMPRESSIONS 1. Abnormal myocardial perfusion imaging with large areas of prior infarct seen in distribution of all 3 coronary arteries. No significant ischemia seen. 2. LV systolic function is moderate to severely reduced with EF of 34% Plan -Serial EKGs, serial troponins, telemetry monitoring -Eliquis -Statin -Plavix -Coreg -Bumex - Continue ranolazine - Continue Nitropaste - Morphine as needed for pain - Cardiology consulted 2. DM2 (diabetes mellitus, type 2): Insulin sliding scale 3. Stage 5 chronic kidney disease: Dialysis today 4. Uncontrolled hypertension: Blood pressure management Plan: DVT prophylaxis: Eliqukarena Full code PDMP PDMP Reviewed: Not Reviewed Attestations 2 Medical Necessity Statement*: Patient requires hospitalization for chest pain Diagnoses Chest pain R07.9 DM2 (diabetes mellitus, type 2) E11.9 Stage 5 chronic kidney disease N18.5 Uncontrolled hypertension I10
[2024-12-09] VITALS (12 sets, daily range): BP systolic 111–142; BP diastolic 54–88; PULSE 67–74; RESP 10–23; TEMP 36.4–36.6; O2SAT 89–97
[2024-12-09 02:45] LABS: Hematocrit 34.0 % (37-53); Hemoglobin 11.70 g/dL (11.27-16.99); Mean Corpuscular HGB Conc 34.4 g/dL (30-55); Mean Corpuscular Hemoglobin 33.2 pg (27-33); Mean Corpuscular Volume 96.6 fl (82-101); Nucleated Red Blood Cells % 0 %; Platelet Count 177 10^3/cmm (157-399); Red Blood Count 3.52 10^6/uL (3.85-5.65); White Blood Count 5.80 10^3/uL (3.29-11.43)
[2024-12-09 03:07] LABS: Anion Gap 13.2 (5-19); Blood Urea Nitrogen 25 mg/dL (6-20); Calcium 8.9 mg/dL (8.5-10.5); Carbon Dioxide 31 mmol/L (22-29); Chloride 99 mmol/L (98-107); Creatinine Clr Calc Pharmacy 25.2778; Glucose 120 mg/dL (65-115); Osmolality Calculated 294 mOsm/kg (285-295); Potassium 4.2 mmol/L (3.5-5.1); Sodium 139 mmol/L (136-145)
[2024-12-09] MEDS: morphine 4 mg/mL SDV 1 mL 2 MG IVP ×2 (03:47→09:22)
[2024-12-09] MEDS: nitroglycerin 1 gm/inch oint Pkt 1 INCH TOPICAL (03:48)
--- NOTE | 2024-12-09 08:15 | P.PN_ITS ---
<Statement entered by Garrison Mckinney M.D - 12/12/24 10:59> Patient was cared for in conjunction with an advanced practice practitioner.? I reviewed the chart and all pertinent data including imaging, telemetry, and laboratory results.? I discussed the patient in detail with the advanced practice practitioner.? Please see?their note for progress note, testing results and agreed upon plan of care for the patient. Subjective 2 Subjective: No events noted overnight. Troponin series yesterday was flat, no EKG changes indicating ischemia. He will be continued on indomethacin, Ranexa for chest pain and discharged home today. Vitals/I&O/Wt Last Vital Signs Temp 97.6 F 12/09/24 11:08 Pulse 74 12/09/24 11:08 Resp 23 H 12/09/24 11:08 BP 111/54 12/09/24 11:08 Pulse Ox 96 12/09/24 11:08 O2 Del Method Nasal Cannula 12/09/24 03:53 O2 Flow Rate 3 12/09/24 03:53 12/09/24 12/09/24 12/09/24 06:59 14:59 22:59 Intake Total 444 / 1684 Balance 444 / -2316 Weight last 48 hrs Weight 189 lb 3 oz Weight 190 lb 11.198 oz Weight 196 lb Physical Exam 2 Const: COMMON NORMALS: no acute distress and patient oriented x3 GENERAL APPEARANCE: cooperative and comfortable ORIENTATION/CONSCIOUSNESS: Yes awake, Yes oriented to person, Yes oriented to place and Yes oriented to time Chest: COMMONS NORMALS: normal inspection of the chest and normal palpation of entire chest wall CHEST: Yes Symmetrical chest wall rise Resp: COMMON NORMALS: normal respiratory effort, No retractions, No use of accessory muscles and clear to auscultation bilaterally EFFORT & INSPECTION: Yes symmetric chest movement AUSCULTATION: clear to auscultation bilaterally Cardio: COMMON NORMALS: regular rate, regular rhythm, S1 normal heart sound present, S2 normal heart sound present, No gallops present (Cardio), No clicks present (Cardio), No murmurs present (Cardio) and No rub (Cardio) RATE: r egular rate RHYTHM: regular rhythm HEART SOUNDS: S1 normal heart sound present and S2 normal heart sound present PERIPHERAL PULSES: radial pulses present Extremity: COMMON NORMALS: no pedal edema Neuro: COMMON NORMALS: patient oriented x3 and moves all extremities S ENSORIUM/ORIENTATION: Yes oriented to person, Yes oriented to place and Yes oriented to time Data 12/09/24 02:38 12/09/24 02:38 A&P Assessment and plan 1. Chest pain: 2. Hypertension: 3. Elevated troponin: 4. ESRD (end stage renal disease): 5. Atherosclerotic heart disease of [place] coronary artery with other forms of angina pectoris: Plan: Chest pain seems to be noncardiac in nature, improved with indomethacin. He is okay to discharge home with this addition and follow-up in the cardiology clinic. PDMP PDMP Reviewed: Not Reviewed Attestations 2 Medical Necessity Statement*: Discharge home Coding Level of Care Code Acute Code for [facility] Diagnoses Chest pain R07.9 Hypertension I10 Elevated troponin R79.89 ESRD (end stage renal disease) N18.6 Atherosclerotic heart disease of [place] coronary 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
--- NOTE | 2024-12-09 08:59 | XRR_ITS ---
PROCEDURE INFORMATION: Exam: XR Chest Exam date and time: 12/09/2024 9:45 AM Age: 54 years old Clinical indication: Pain; Angina pectoris; Prior surgery; Surgery date: 6+ months; Surgery type: Open heart pacer; Additional info: Chest pain TECHNIQUE: Imaging protocol: Radiologic exam of the chest. Views: 1 view. COMPARISON: CR XR chest 1V portable [id number] 12/07/2024 4:39 PM FINDINGS: Tubes, catheters and devices: Right chest wall pacemaker/AICD with leads stably positioned. Left chest wall port a catheter with its distal tip in the SVC. Right costophrenic angle is obscured due to pacemaker positioning. Lungs: Low lung volumes with associated bibasilar compression. Distension of the stomach with elevation of the left hemidiaphragm. No focal consolidation. Pleural spaces: Unremarkable. No pleural effusion. No pneumothorax. Heart/Mediastinum: Coronary stents in place. The cardiomediastinal silhouette is stable. Vasculature: Left upper extremity vascular stent is partially visualized. Bones/joints: Median sternotomy wires in place. No acute fracture. XR/XR chest 1V portable [id number] IMPRESSION: 1. No acute cardiopulmonary abnormality. Stable positioning of devices as detailed above. 2. Mild gaseous distension of the stomach.
--- NOTE | 2024-12-09 10:48 | PM.DCS ---
Discharge Providers Date of Admission: 12/07/24 20:22 Date of Discharge: December 09, 2024 Attending Provider at Admission: Nancy Watson MD Attending Provider at Discharge: Jaydon Juarez MD Primary Care Provider: Dez Evans MD Diagnoses at Discharge Discharge Diagnosis 1. DM2 (diabetes mellitus, type 2): 2. Stage 5 chronic kidney disease: 3. Uncontrolled hypertension: Reason for Visit Reason for Visit: Chest Pain Hospital Course Hospital Course This is a 54-year-old male with a past medical history of end-stage renal disease, CAD, DVT on Eliquis, diabetes, hypertension, presents [facility] for chest pain Chest pain: Cardiac echo September 2023 CONCLUSIONS LV systolic function is moderately reduced with EF of 35-40%. Grade 1 diastolic dysfunction Left atrial dilation Mild mitral regurgitation Mild pulmonic regurgitation Compared to prior echocardiogram from 2021, LV systolic function is improved and is moderately reduced. Cardiac cath March 2024 - 80% proximal RCA in-stent restenosis, treated with balloon angioplasty -80% hazy distal circumflex stent edge stenosis, treated with balloon angioplasty -previously placed stent including proximal LAD and PDA appear to be patent with mild in-stent restenosis Stress test November 2024 IMPRESSIONS 1. Abnormal myocardial perfusion imaging with large areas of prior infarct seen in distribution of all 3 coronary arteries. No significant ischemia seen. 2. LV systolic function is moderate to severely reduced with EF of 34% -Patient was monitored as inpatient, cardiology consulted, nephrology consulted - No recurrent chest pain - Will be discharged on plavix, Eliquis, statin, nifedipine, Ranexa, with close follow-up with cardiology as outpatient - If any recurrent chest pain please go to emergency room Physical Exam Const: COMMON NORMALS: no acute distress and patient oriented x3 Resp: COMMON NORMALS: normal respiratory effort, No retractions, No use of accessory muscles and clear to auscultation bilaterally AUSCULTATION: clear to auscultation bilaterally Cardio: COMMON NORMALS: regular rate, regular rhythm, S1 normal heart sound present and S2 normal heart sound present RATE: regular rate RHYTHM: regular rhythm HEART SOUNDS: S1 normal heart sound present and S2 normal heart sound present GI: COMMON NORMALS: Normal to inspection, nondistended, normoactive bowel sounds present and non-tender Extremity: COMMON NORMALS: no pedal edema Neuro: COMMON NORMALS: patient oriented x3 Psych: COMMON NORMALS: mental status grossly normal Discharge Data Studies Completed and Pending Completed Studies During Hospitalization Category Date Time Status XR chest 1V portable [id number] Stat Exams 12/07/24 16:34 Completed Pending at discharge Category Date Time Status CXRP [XR chest 1V portable [id number]] Routine Exams 12/09/24 08:59 Taken Basic Metabolic Panel AM LABS Lab 12/10/24 04:00 Ordered Basic Metabolic Panel AM LABS Lab 12/11/24 04:00 Ordered Complete Blood Count w/Auto AM LABS Lab 12/10/24 04:00 Ordered Complete Blood Count w/Auto AM LABS Lab 12/11/24 04:00 Ordered Laboratory Results WBC 5.80 10^3/uL (3.29-11.43) 12/09/24 02:38 RBC 3.52 10^6/uL (3.85-5.65) L 12/09/24 02:38 Hgb 11.70 g/dL (11.27-16.99) 12/09/24 02:38 Hct 34.0 % (37-53) L 12/09/24 02:38 MCV 96.6 fl (82-101) 12/09/24 02:38 MCH 33.2 pg (27-33) H 12/09/24 02:38 MCHC 34.4 g/dL (30-55) 12/09/24 02:38 RDW 13.6 % (12.1-15.1) 12/09/24 02:38 Plt Count 177 10^3/cmm (157-399) 12/09/24 02:38 MPV 9.3 fL (7.4-10.4) 12/09/24 02:38 Neut % (Auto) 66.7 % 12/09/24 02:38 Lymph % (Auto) 19.7 % 12/09/24 02:38 Terry % (Auto) 9.8 % 12/09/24 02:38 Eos % (Auto) 2.6 % 12/09/24 02:38 Baso % (Auto) 0.9 % 12/09/24 02:38 Neut # (Auto) 3.87 10^3/uL (1.8-7.7) 12/09/24 02:38 Lymph # (Auto) 1.1 10^3/uL (0.8-4.8) 12/09/24 02:38 Terry # (Auto) 0.6 10^3/uL (0.2-0.9) 12/09/24 02:38 Eos # (Auto) 0.2 10^3/uL (0.0-0.8) 12/09/24 02:38 Baso # (Auto) 0.1 10^3/uL (0.0-0.1) 12/09/24 02:38 Nucleated RBC % (auto) 0 % 12/09/24 02:38 Nucleated RBCs # 0.0 /100WBC 12/09/24 02:38 Sodium 139 mmol/L (136-145) 12/09/24 02:38 Potassium 4.2 mmol/L (3.5-5.1) 12/09/24 02:38 Chloride 99 mmol/L (98-107) 12/09/24 02:38 Carbon Dioxide 31 mmol/L (22-29) H 12/09/24 02:38 Anion Gap 13.2 (5-19) 12/09/24 02:38 BUN 25 mg/dL (6-20) H 12/09/24 02:38 Creatinine 3.3 mg/dL (0.7-1.2) H 12/09/24 02:38 GFR Calculation 19.5 mL/min (90-130) L 12/09/24 02:38 Glucose 120 mg/dL (65-115) H 12/09/24 02:38 POC Glucose 145 mg/dL (70-110) H 12/09/24 06:15 Calculated Osmolality 294 mOsm/kg (285-295) 12/09/24 02:38 Calcium 8.9 mg/dL (8.5-10.5) 12/09/24 02:38 Phosphorus 2.9 mg/dL (2.5-4.5) 12/08/24 02:13 Magnesium 1.8 mg/dL (1.7-2.3) 12/08/24 02:13 Total Bilirubin 0.6 mg/dL (0.15-1.2) 12/08/24 02:13 AST 14 U/L (0-40) 12/08/24 02:13 ALT 8 U/L (0-41) 12/08/24 02:13 Alkaline Phosphatase 95 U/L (40-130) 12/08/24 02:13 Troponin T Baseline 52 ng/L (0-15) H 12/07/24 17:15 Troponin T 120 Minute 50.77 ng/L (0-15) H 12/07/24 19:21 Delta Troponin T -1.23 ABS# (0-10) L 12/07/24 19:21 Troponin T Hi Sens 6Hr 56.30 ng/L (0-15) H 12/07/24 23:15 Troponin T Hi Sens 6Hr Delta 4.30 ng/L (0-12) 12/07/24 23:15 Total Protein 6.1 g/dL (6.6-8.7) L 12/08/24 02:13 Albumin 3.6 g/dL (3.5-5.2) 12/08/24 02:13 Globulin 2.5 g/dL (1.3-4.6) 12/08/24 02:13 Vitals Last Vital Signs Temp 97.9 F 12/09/24 07:47 Pulse 70 12/09/24 07:47 Resp 20 H 12/09/24 09:22 BP 121/68 12/09/24 07:47 Pulse Ox 89 L 12/09/24 09:22 O2 Del Method Nasal Cannula 12/09/24 03:53 O2 Flow Rate 3 12/09/24 03:53 Discharge Plan Discharge Patient Disposition: Home Condition: Stable Prescriptions: New clopidogrel [Plavix] 75 mg tablet 75 mg PO DAILY 30 Days Qty: 30 0RF Continued trazodone 100 mg tablet 300 mg PO BEDTIME PRN (Reason: insomia ) Qty: 90 11RF bupropion HCl 300 mg tablet extended release 24 hr 300 mg PO QAM Qty: 30 11RF buspirone 10 mg tablet 10 mg PO BID Qty: 60 11RF fluoxetine 40 mg capsule 40 mg PO QAM Qty: 30 11RF colchicine 0.6 mg tablet 0.3 mg PO DAILY Qty: 60 0RF mupirocin [Centany] 2 % ointment 1 applic topical BID Qty: 15 2RF atorvastatin 40 mg tablet 40 mg PO QAM Qty: 90 2RF nitroglycerin [Nitrostat] 0.4 mg tablet, sublingual 0.4 mg SUBLINGUAL Q5M PRN (Reason: Chest Pain) Qty: 25 2RF Rx Instructions: do not exceed 3 doses per episode Mounjaro 15 mg/0.5 mL pen injector See Rx Instructions .ROUTE .COMPLEX Qty: 2 2RF Dose Instruction: inject 15mg (0.5ml) SUBCUTANEOUSLY EVERY 7 DAYS Rx Instructions: inject 15mg (0.5ml) SUBCUTANEOUSLY EVERY 7 DAYS ON SATURDAY. isosorbide mononitrate 30 mg tablet extended release 24 hr See Rx Instructions .ROUTE .COMPLEX Qty: 30 1RF Rx Instructions: Take 30 mg daily, do not take on dialysis days tizanidine 2 mg tablet 2 mg PO BID tamsulosin 0.4 mg capsule 0.4 mg PO DAILY pantoprazole 40 mg Tablet,Delayed Release (Dr/Ec) 40 mg PO DAILY Qty: 30 0RF carvedilol 6.25 mg tablet 6.25 mg PO BID promethazine 25 mg tablet 25 mg PO Q6H PRN (Reason: Nausea) hydroxyzine HCl 50 mg tablet 100 mg PO BEDTIME PRN (Reason: insomnia) diphenhydramine HCl [Benadryl Allergy] 25 mg Tablet 50 mg PO DAILY PRN (Reason: Allergy Symptoms) insulin lispro [Humalog KwikPen Insulin] 100 unit/mL insulin pen See Rx Instructions .ROUTE .COMPLEX Rx Instructions: Sliding scale subcutaneously twice a day as needed. RenaPlex-D 800 mcg-12.5 mg -2,000 unit tablet 1 tab PO BEDTIME bumetanide 2 mg tablet 2 mg PO BID sevelamer carbonate 800 mg tablet 800 mg PO BID Rx Instructions: must administer with a meal/food acetaminophen [Tylenol Extra Strength] 500 mg Tablet 1,000 mg PO QID PRN (Reason: Pain) hydrocodone-acetaminophen 5-325 mg tablet 1 tab PO Q6H metoprolol tartrate 25 mg tablet 12.5 mg PO BID nifedipine 30 mg tablet extended release 24hr 30 mg PO QAM fexofenadine [Allergy Relief (fexofenadine)] 180 mg tablet 180 mg PO DAILY levothyroxine 88 mcg tablet 88 mcg PO QAM gabapentin 300 mg capsule 300 mg PO BID Eliquis 2.5 mg tablet 2.5 mg PO BID insulin degludec [Tresiba FlexTouch U-200] 200 unit/mL (3 mL) insulin pen 40 unit SUBCUT BEDTIME ranolazine 1,000 mg tablet extended release 12 hr 1,000 mg PO BID Discontinued aspirin 81 mg Tablet,Delayed Release (Dr/Ec) 81 mg PO DAILY Qty: 90 3RF Discharge Order = DC NOW: Discharge Order (Routine); Ordered 12/09/24 Ordered By: Jaydon Juarez Referrals: Dez Evans MD [Primary Care Provider, Family Practice] - 12/21/24 2:45 pm Rosi Vee MD [Physician, Cardiology] - 7-10 days Discharge Diet: Cardiac Discharge Activity: Resume usual activity Patient Instructions: Opioid Safety, Pain Management, Patient Portal & Sunny Instructions Discharge Attestations Time Spent in Discharge Care*: greater than 30 min Status at Discharge: Cognitive status at discharge: cognitively intact, Behavioral status at discharge: cooperative and independent in ADL's, Quality Metrics Clinical Quality Measures [ No reported AMI, CVA or VTE this stay] Coding Level of Care Code 12790 Total time (in minutes) for Discharge: 45 Diagnoses Chest pain R07.9 Chest pain type: unspecified DM2 (diabetes mellitus, type 2) E11.9 Stage 5 chronic kidney disease N18.5 Uncontrolled hypertension I10
--- NOTE | 2024-12-09 16:42 | P.PN_ITS ---
Subjective 2 Subjective: no new c/o Medications: Reviewed: Yes Vitals/I&O/Wt Last Vital Signs Temp 97.6 F 12/09/24 11:08 Pulse 74 12/09/24 11:08 Resp 23 H 12/09/24 11:08 BP 111/54 12/09/24 11:08 Pulse Ox 96 12/09/24 11:08 O2 Del Method Nasal Cannula 12/09/24 03:53 O2 Flow Rate 3 12/09/24 03:53 12/09/24 12/09/24 12/09/24 06:59 14:59 22:59 Intake Total 444 / 1684 Balance 444 / -2316 Weight last 48 hrs Weight 85.814 kg Weight 86.5 kg Physical Exam 2 Narrative: awake , alert PEERLA S1S2 RRR per report Lung clear per report No edema Data 12/09/24 02:38 12/09/24 02:38 A&P Assessment and plan 1. ESRD (end stage renal disease): Plan: 1. End-stage renal disease: Will continue dialysis per TTS schedule and ultrafiltration as tolerated 2. Hypertensive urgency: Resumed home meds and reevaluate after dialysis today and adjust meds as needed 3. Chest pain: Noted recent stress test which showed abnormal myocardial perfusion imaging, ejection fraction 34%, cardiology was consulted. 4. Anemia: Hemoglobin at goal per CKD 5. MBD: Will resume home binders Patient evaluated using audiovisual cart. Time spent 40 minutes PDMP PDMP Reviewed: Not Reviewed Attestations 2 Medical Necessity Statement*: per [place] Coding Level of Care Code Acute Code for Chg Fwd Diagnoses ESRD (end stage renal disease) N18.6
== END 2024-12-09 12:21 | disposition home or self-care (01) ==
LOC: ER 21:47 → ER IP 23:11 → CSU 12-08 07:25 → ER IP 12-08 07:45 → CSU 12-08 09:53
PROVIDERS: Admitting Provider Student in an Organized Health Care Education/Training Program; Emergency Provider Family Medicine; PCP Family Medicine; Visit Provider Family Medicine
DX: R07.89 Other chest pain (principal); I25.118 Atherosclerotic heart disease of native coronary artery with other forms of angina pectoris; E11.22 Type 2 diabetes mellitus with diabetic chronic kidney disease; I12.0 Hypertensive chronic kidney disease with stage 5 chronic kidney disease or end stage renal disease; N18.5 Chronic kidney disease, stage 5; Z79.4 Long term (current) use of insulin; Z79.01 Long term (current) use of anticoagulants; K21.9 Gastro-esophageal reflux disease without esophagitis; E03.9 Hypothyroidism, unspecified; Z82.49 Family history of ischemic heart disease and other diseases of the circulatory system; Z86.718 Personal history of other venous thrombosis and embolism; Z99.2 Dependence on renal dialysis
CPT/HCPCS: 36415; 36416; 71045; 80048; 80053; 82962; 83735; 84100; 84484; 85025; 90935; 93005; 96372; 99285; G0378; J1200; J1644; J1815; J2270; J9999; Q0169

== ENCOUNTER 2024-12-10 10:47 | Emergency (ER) | payer MEDICARE, SELFPAY ==
[2024-03-20 13:31] VITALS: BP 125/53; BMI 35.0
[2024-12-10] VITALS (41 sets, daily range): BP systolic 112–138; BP diastolic 25–80; PULSE 85–92; RESP 13–25; TEMP 37.1–37.6; O2SAT 90–99
--- NOTE | 2024-12-10 10:53 | CT_ITS ---
WS: [id number] CT HEAD NONCONTRAST HISTORY: fall, head injury TECHNIQUE: Contiguous axial imaging performed through the brain. Bone and soft tissue windows. Sagittal and coronal reformats reviewed. All CT scans at [facility] use at least one of these dose optimization techniques: automated exposure control; mA and/or kV adjustment per patient size (includes targeted exams where dose is matched to clinical indication); or iterative reconstruction. DLP: 1141.09 mGy.cm COMPARISON: 11/06/2024 No acute intracranial hemorrhage, midline shift or mass effect. No atrophy or prior infarcts or herniation. Ventricles: Normal size with no hydrocephalus. Paranasal sinuses: As visualized are clear. Mastoid air cells: Well pneumatized. Calvarium and scalp: Skull is intact with no soft tissue edema or swelling. Extensive atherosclerotic calcifications in the distal vertebral and the intracranial carotid arteries. CT/CT head wo con* [id number] IMPRESSION: 1. No acute intracranial hemorrhage or edema. 2. No prior infarct. 3. Extensive atherosclerotic calcification in the distal vertebral and intracr anial carotid arteries.
--- NOTE | 2024-12-10 10:53 | XR_ITS ---
WS: [id number] Portable AP upright chest, 12/10/2024 Clinical Data: Weakness Comparison: Portable chest, 12/09/2024 Findings: No nodules, masses or effusions are seen. The permanent cardiac pacemaker remains in the same position. Midline sternotomy sutures are seen. There are coronary artery stents. There is a vascular stent in the medial left arm. There is a left infusion catheter unchanged. Monitor leads are on the chest wall. The heart is normal. The pulmonary vascularity is not increased. No pneumonia or pneumothorax is seen. XR/XR chest 1V portable [id number] Impression: No change from yesterday.
--- NOTE | 2024-12-10 10:54 | ECG_ITS ---
[employer] Test Date: 2024-12-10 Pat Name: Rei Queen Department: Room: Gender: Male Hub Borer: : 1970 Requested By: Inge Hart Order Number: [id number] Reading MD: Measurements Intervals Win[place] Rate: 88 P: 28 HI: 206 QRS: -37 QRSD: 115 T: 72 QT: 401 QTc: 486 Interpretive Statements SINUS RHYTHM POSSIBLE LEFT ATRIAL ENLARGEMENT [-0.1mV P-WAVE IN V1/V2] POSSIBLE ANTERIOR MYOCARDIAL INFARCTION , OF INDETERMINATE AGE [30 ms Q WAVE IN V3/V4, OR R < 0.2 mV IN V4] INFERIOR MYOCARDIAL INFARCTION , PROBABLY OLD [40+ ms Q WAVE AND/OR ST/T ABNORMALITY IN II/aVF] [id number] [email or web address]
--- OUTSIDE RECORDS SUMMARY | 2024-12-10 10:55 | XMS_ITS | Clinical Summary ---
Author Organization [facility] Address [address] [place] [id number] Care Team Providers Care Trim Setter Name Role Phone Kp Montanez Primary Care [...] for Pain. 15 Tablet 04/10/2018 11:19 AM SALES REPRESENTATIVE BUSINESS COURSES 8 Active nitroglycerin (NITROSTAT) 0.4 mg Tablet, [...] tablet Take 88 mcg by mouth daily communications clerk. Active metFORMIN (GLUCOPHAGE) 500 mg tablet Take 500 mg by mouth 2 times daily with meals. Active isosorbide mononitrate (IMDUR) 30 mg Extended Release 24 hour tablet Take 1 Tablet (30 mg) by mouth daily communications clerk. 30 Tablet 9 Active metoprolol tartrate (LOPRESSOR) [...] Overview (08/18/2012): secondary to fasciotomy Atherosclerosis of [place] co ronary artery of [place] heart with stable angina pectoris 08/18/2012 DM (diabetes mellitus), type 2, uncontrolled 05/2012 Hypothyroidism 08/18/2012 Benign hypertension CKD (chronic kidney disease) stage 2, GFR 60-89 ml/min Resolved Problems Problem Noted Date Diagnosed Date Resolved Date Acute chest pain 09/06/2018 10/27/2018 Elevated troponin 09/06/2018 10/27/2018 Grade I diastolic dysfunction 07/06/2018 10/27/2018 Chest pain 04/04/2018 07/06/2018 CAD in [place] artery 07/02/2013 019 CHF (congestive heart failure) [...] history exists Medical Devices Implanted Type Area Immigration Attorney Device Identifier Shelf Expiration Date Model / Serial / Lot Port-06/04/2018 Implanted:2018 (Quantity not on file) Port Procedures Procedure Name Priority Date/Time Associated Diagnosis Comments LIPID PANEL Routine 01/25/2019 2:00 AM CDT HEMOGLOBIN A1C Routine 05/03/2014 9:04 AM SALES REPRESENTATIVE BUSINESS COURSES DM (diabetes mellitus), type 2, uncontrolled HTN (hypertension), benign from Last 3 Months or Most Recently Relevant to Health Maintenance Results * (ABNORMAL) LIPID PANEL (01/25/2019 2:00 AM CDT) CHOLESTEROL 133 <200 mg/dL 01/25/2019 2:42 AM CDT [facility] TRIGLYCERIDE 177(H) <150 mg/dL 01/25/2019 2:42 AM CDT [facility] HDL 33(L) 40 - 59 mg/dL 01/25/2019 2:42 AM CDT [facility] LDL CALCULATED 65 <100 mg/dL 01/25/2019 2:42 AM CDT [facility] NON-HDL CHOLESTEROL 100 <130 mg/dL 01/25/2019 2:42 AM CDT [facility] Blood Venipuncture / Unknown 01/25/2019 2:00 AM CDT 01/25/2019 2:15 AM CDT Narrative [facility] - 01/25/2019 2:42 AM CDT TOTAL CHOLESTEROL [...] John Teixeira MD CHEMISTRY ORDERABLES Final Result [facility] CLIA# [id number] [address] [place] [address] * (ABNORMAL) HEMOGLOBIN A1C (05/03/2014 9:04 AM SALES REPRESENTATIVE BUSINESS COURSES) HEMOGLOBIN A1C 9.0(H) 4.0 - 6.0 % [facility] Comment: This test was performed on a [employer] VARIANT II instrument using HPLC methodology. Blood specimen (specimen) 05/03/2014 9:04 AM SALES REPRESENTATIVE BUSINESS COURSES 05/03/2014 9:05 AM SALES REPRESENTATIVE BUSINESS COURSES us Nicolasa Acosta APPEALS ANALYST CHEMISTRY ORDERABLES Final R esult INTERFACE SYSTEM Refer to clinic/hospital department [facility] CLIA# [id number] [address] [place] [address] from Last 3 Months or Most Recently Relevant to Health Maintenance Insurance [place] [address] [place] [address] DUAL COMPLETE [facility] PPO D-SNP RX [employer] PLANS (INTERNAL) [facility] Internal Plans RX [employer]UM RX Member Subscriber Plan / Payer (Ef fective for All Dates) Name:Rei Queen II Relation to Subscriber:Self Name:Rei Queen II Payer ID:Not on file Group ID:[id number] Type:RX Medicare Part D Address: [address] Advance Directives For more information, please contact: [phone] * Full Code (Latest Code Status on [...] 9:34 PM 04/10/2018 3:22 PM Care Teams Trim Setter Relationship Specialty Start Date End Date Kp Montanez DO [address] [address] PCP - General Internal Medicine 04/04/18
--- OUTSIDE RECORDS SUMMARY | 2024-12-10 10:55 | XMS_ITS | Encounter Summary ---
Author Organization [facility], [facility] Address [address] [place] [address] Phone Care Team Providers Care Matrix Bath Operator Name Role Phone Kp Montanez DO Primary Care Provider Encounter Details Date Type Department Care Team (Late st Contact Info) Description 12/03/2024 Orders Only [facility] [address] [place] [address] Yesi Madison MD [address] [place] [address] Social History Tobacco Use Types [...] 12/04/2024 Unless otherwise specified, test(s) performed at: [facility], [address] [place] [address] MATHEMATICS EDUCATION PROFESSOR: Jose Martin Mariscal M.D. For any questions, please call customer service at FREQUENCY:OTHER Resulting Agency Comment Specimen source: Blood us Yesi Madison MD LAB BLOOD ORDERABLES Final Re sult [facility] See order comments or contact performing lab Unknown, [place] documented in this encounter Visit Diagnoses Not on filedocumented in this encounter Care Teams Matrix Bath Operator Relationship Specialty Start Date End Date Kp Montanez DO [address] [place] [address] PCP - General Internal Medicine 01/07/23 documented as of this encounter
--- OUTSIDE RECORDS SUMMARY | 2024-12-10 10:55 | XMS_ITS | Encounter Summary ---
Author Organization [facility], [facility] Address [address] [facility] [address] [place] [address] Phone Care Team Providers Care Prospecting Observer Name Role Phone Kp Montanez DO Primary Care Provider [phone] Reason for Visit * Reason Comments Med Refill Encounter Details Date Type Department Care Team (Late st Contact Info) Description 03/07/2022 [facility] [address] [place] [address] Ghazal Schmitt, ADJUNCT WRITING INSTRUCTOR [address] [facility] [address] [place] [address] Chronic combined systolic and diastolic [...] failure documented in this encounter Care Teams Prospecting Observer Relationship Specialty Start Date End Date Kp Montanez DO [address] [place] [address] PCP - General Internal Medicine 01/07/23 documented as of this encounter
--- OUTSIDE RECORDS SUMMARY | 2024-12-10 10:55 | XMS_ITS | Encounter Summary ---
Author Organization [facility], [facility] Address [address] [place] [address] Phone Care Team Providers Care Window Glazier Name Role Phone MontanezKp kevin Primary Care Provider [phone] Encounter Details Date Type Department Care Team (Late st Contact Info) Description 09/29/2024 [facility] [address] [place] [address] Ayad Monahan, FRONT END LOADER OPERATOR [address] [place] [address] Social History Tobacco Use Types [...] 09/29/2024 The patient was seen for a suim-rc-qwau visit as part of Transitional Care Management services. Attending Chief Of Staff: RITA MENENDEZ Dialysis Location: [facility] Schedule: Shift: 1 INTERACTIVE [...] 98.1*F Current Dialysis Vitals BP Sit: 159/81 AP/DRESS OPERATOR: 198/162 Pulse: 86 CARE COORDINATION No follow-up appointments noted. COMMENTS: no new referrals. EDUCATION Education relevant to the discharge diagnosis provided to the patient or caregiver IMPRESSION & PLAN COMMENTS: 1.hemodialysis access problem; fistulogram completed. Now working well. 2. ESRD on HD: Continue HD TTS. VISIT DIAGNOSES CPT Code 68257 - High complexity, seen within 7 days [...] on filedocumented in this encounter Care Teams Window Glazier Relationship Specialty Start Date End Date Kp Montanez DO [address] [place] [address] PCP - General Internal Medicine 01/07/23 documented as of this encounter
--- OUTSIDE RECORDS SUMMARY | 2024-12-10 10:55 | XMS_ITS | Encounter Summary ---
Author Organization [facility] Address [address] [place] [address] Care Team Providers Care Hogshead Head Matcher Name Role Phone Dez Evans MD Primary Care Provider [phone] Reason for Visit * Reason Onset Date Comments Appointment Notification 09/24/2024 Encounter Details Date Type Department Care Team (Late st Contact Info) Description 09/24/2024 Telephone [facility] [address] [place] [address] Marla Rodriges FNP [address] [facility] [address] [place] [address] Appointment Notification Social History Tobacco Use Types Packs/Day Years Used Date Smoking Tobacco: Never Smokeless Tobacco: Never Alcohol Use Standard Drinks/Week Comments Not Currently 0 (1 standard drink = 0.6 oz pur e alcohol) rarely drinks since 2013 Sex and Gender Information Value Date Recorded Sex Assigned at Not on file Legal Sex Male 2:43 AM FORCE VARIATION EQUIPMENT TENDER Gender Identity Not on file Sexual Orientation Not on file Occupation Industry Job Start Date Job End Date Not on file Not on file Not on file Not on file documented as of this encounter Miscellaneous Notes * Telephone Encounter - Carmen Sargent - 09/24/2024 10:35 AM CDT Provider: Antelmo MESSAGE Pt has an appt on 09/29/24 w / JUNIOR ACCOUNT MANAGER Antelmo and he is needing to get this appt rescheduled, he has dialysis on that day, Saturday, Saturday or Saturday works the best, please advise. Carmen Sargent, [facility] Cardiology [facility] documented in this encounter Plan of Treatment Upcoming Encounters Date Type Department Care Team (Late st Contact Info) Description 02/12/2025 3:30 PM CDT Office Visit [facility] [place] [address] [place] [address] Shannan Goodwin MD [address] [place] [address] documented as of this encounter Visit Diagnoses Not on filedocumented in this encounter Additional Health Concerns Assessment Noted Time PHQ-9 Depression Total Score: 1 06/29/19 2:57 AM FORCE VARIATION EQUIPMENT TENDER documented as of this encounter Care Teams Hogshead Head Matcher Relationship Specialty Start Date End Date Dez Evans MD [address] [place] [address] PCP - General Family Practice 06/18/24 documented as of this encounter
--- OUTSIDE RECORDS SUMMARY | 2024-12-10 10:55 | XMS_ITS | Patient Health Record ---
Author Organization [facility] Address [address] [place] [address] Care Team Providers Care Lead Technician Name Role Phone Cristina RITTER, Dez Primary Care Provider UnavailElizabeth Jon Unavailable [phone] Pee Castaneda MD Unavailable Unavailable Ray Sherman Unavailable [phone] Shelley Llanes Unavailable [phone] Migration, Provider Unavailable Unavailable Ajit Silver Unavailable [phone] Allergies Allergen (clinical drug ingredient) Drug/Non Drug [...] Reference Range Flag Notes Tox Results Reviewed date:11/10/2024 02:08:00 PM Interpretation: Performing Lab: Notes/Report: Tox Results Reviewed date:07/21/2024 11:36:15 AM Interpretation: Performing Lab: Notes/Report: Urine Drug Screen (cup read) - [id number] Reviewed date:11/05/2024 02:20:09 PM Interpretation: Performing Lab: Notes/Report: BUP + OPI + OXY + Urine Confirmation Panel (in strument) - [id number] Reviewed date:11/10/2024 02:00:57 PM Interpretation: Performing Lab: [...] the U.S. Food and Drug Administration. Gabapentin >35306 <225 ng/mL > This test was developed [...] the U.S. Food and Drug Administration. 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 Referral Priority Routine Reason chronic back pain gr eater than three months duration Diagnosis 1 Other chronic pain ( G89.29) Referring Provider First Name Kp Referring Provider Last Name Lisseth Referring Provider Speciality Internal M edicine Referred Organization [facility] Referred Provider Eran Block Referred Address [address] [facility],[address],[place] Referred Provider Specialty Pain Medicin e General [...] W/U Status Risk Notes Problem Chronic pain (10644525) Other chronic pain (G89.29) Active confirmed Problem Chronic pain syndrome (116513459) Chronic pain syndrome (G89.4) Active confirmed Problem Cervical radiculopathy (81196060) Cervical radiculopathy (M54.12) Active confirmed Problem Lumbar radiculopathy (720632072) Lumbar radiculopathy (M54.16) Active confirmed Problem Long-term current use of drug therapy (430019620) Long-term use of high-risk medication (Z79.899) Active confirmed Problem Abnormal gait (54388660) Abnormality of gait and mobility (R26.9) Active confirmed Problem 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 (166270623150388 ) 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 (I25.10) Active confirmed [id number] ed Description:Patricia nary arteriosclerosis Problem Presence of coronary angioplasty implant and graft (Z95.5) Active confirmed [id number] om ed Description:Hist ory of placement of stent for coronary artery disease Problem Essential hypertension (43782143) Essential primary hypertension (I10) Active confirmed [id number] ed Description:Holger gn essential hypertension Vital Signs Heart Rate 82 /min 02/19/2024 Temperature 97.5 degrees Fahrenheit 02/19/2024 Respiratory Rate 18 /min 02/19/2024 Height-cm 165.1 cm 11/05/2024 Oximetry 93 % 02/19/2024 Weight-kg 90.72 kg 11/05/2024 Height 65 in 11/05/2024 Weight 200 lbs 11/05/2024 BMI 33.28 kg/m2 11/05/2024 Encounters Encounter Location Date Provider Diagnosis [facility] [address] [place] [address] 02/19/2024 Shelley Llanes Rectal bleeding K62. 5 [facility] [address] [address] 06/24/2024 Ajit Silver Chronic pain syndrom e G89.4 ; Lumbar radiculopathy M54.16 ; 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 I25.10 ; Abnormality of gait and mobility R26.9 and Long-term use of high-risk medication Z79.899 [facility] [address] [address] 07/15/2024 Ajit Silver Chronic pain syndrom e G89.4 ; Lumbar radiculopathy M54.16 ; 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 I25.10 and Long-term use of high-risk medication Z79.899 [facility] [address] [address] 09/02/2024 Ajit Silver Chronic pain syndrom e G89.4 ; Lumbar radiculopathy M54.16 ; 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 I25.10 and Long-term use of high-risk medication Z79.899 [facility] [address] [address] 11/05/2024 Elizabeth Canales Chronic pain syndrom e G89.4 ; Cervical radiculopathy M54.12 ; Lumbar radiculopathy M54.16 ; 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 I25.10 and Long-term use of high-risk medication Z79.899 [facility] 0 03/14/2024 Provider Migration [facility] 0 03/15/2024 Provider Migration [facility] [address] [place] [address] 01/16/2024 Shelley Llanes [facility] [address] [place] [address] 02/19/2024 [facility] [address] [place] [address] 02/24/2024 [facility] [address] [place] [address] 02/25/2024 [facility] [address] [place] [address] 03/09/2024 [facility] Interventional Pain Management [address] [address] 11/05/2024 Ajit Silver Lumbar radiculopathy M54.16 Assessments [...] effects are noted. Last UDS and [place] COMMUNITY OUTREACH WORKER reviewed today. Patient is advised that best [...] infarction and pneumonia and was in the [facility] for a bit of time. He has [...] effects are noted. Last UDS and [place] COMMUNITY OUTREACH WORKER reviewed today. Patient is advised that best [...] - M54.16) 07/15/2024 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 (ICD-10 - I25.10) [id number] Description:Damon ry arteriosclerosis 06/24/2024 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 (ICD-10 - I25.10) [id number]-Bkiivm Description:Damon ry arteriosclerosis 07/15/2024 Long-term use of [...] testing policy. 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 (ICD-10 - I25.10) [id number] Description:Damon ry arteriosclerosis 11/05/2024 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 (ICD-10 - I25.10) [id number] Description:Damon ry arteriosclerosis 06/24/2024 Abnormality of gait [...] Pending Test Test Name Order Date Diagnostic Colonoscopy-[id number] 02/19/2024 Next Appt Details Provider Name:Elizabeth verduzco, 01/07/2025 02:20:00 PM, [address] [place], [address], Insurance Providers Payer Name Payer Address Payer Phone Subscriber Number Group Number Insured Name Patient Relationship to Insured Coverage Start Date Coverage End Date [facility] Medicare Advantage - PPO [address] [address] [place] [address] [id number] Bret SMITHA Self - patient is the insured UHC Medicare Dual Complete PPO [address] [address] [place] [address] [phone] [id number] SMITHA Downey Self - patient is the insured [place] Medicaid [address] [place] [address] [id number] SMITHA Downey Self - patient is the insured Medical (General) History Medical History History ICD Code Coronary artery disease Arthritis Diabetes Hypertension Anxiety Congestive heart failure Depression Hyperlipidemia Hypothyroidism kidney stones myocardial infarction renal failure sleep apnea Surgical History Surgery Date(Month/Year) Open heart surgery for cardiac tamponade 2011 Bilateral Inguinal hernia repair (2 left 1 right) 2000 Coronary artery Stent placement April cardiac pacemaker/defibrillator Fasciotomy both lower legs for compartme nt syndrome Port a cath placement Left upper arm hemodialysis graft Cholecystectomy Appendectomy
--- OUTSIDE RECORDS SUMMARY | 2024-12-10 10:55 | XMS_ITS | Encounter Summary ---
Author Organization [facility] Address [address] [place] [address] Care Team Providers Care Director Recreation Name Role Phone Dez Evans MD Primary Care Provider [phone] Reason for Visit * Reason Onset Date Comments Question 12/04/2024 Encounter Details Date Type Department Care Team (Late st Contact Info) Description 12/04/2024 Telephone [facility] [place] [address] [facility] [address] [place] [address] Shannan Goodwin MD [address] [facility] [address] [place] [address] Question Social History Tobacco Use Types Packs/Day Years Used Date Smoking Tobacco: Never Smokeless Tobacco: Never Alcohol Use Standard Drinks/Week Comments Not Currently 0 (1 standard drink = 0.6 oz pur e alcohol) rarely drinks since 2013 Sex and Gender Information Value Date Recorded Sex Assigned at Not on file Legal Sex Male 2:43 AM TEAM LEAD Gender Identity Not on file Sexual Orientation Not on file Occupation Industry Job Start Date Job End Date Not on file Not on file Not on file Not on file documented as of this encounter Miscellaneous Notes * Telephone Encounter - Winston Nguyen - 12/04/2024 3:25 PM CDT Christa (Provider) MESSAGE Pt is asking if Dr has rec'd msg sent from [address]. documented in this encounter Plan of Treatment Upcoming Encounters Date Type Department Care Team (Late st Contact Info) Description 02/12/2025 3:30 PM CDT Office Visit [facility] Vascular Surgery [place] [address] [place] [address] Shannan Goodwin MD [address] [place] [address] documented as of this encounter Visit Diagnoses Not on filedocumented in this encounter Additional Health Concerns Assessment Noted Time PHQ-9 Depression Total Score: 1 06/29/19 25 2:57 AM TEAM LEAD documented as of this encounter Care Teams Director Recreation Relationship Specialty Start Date End Date Dez Evans MD [address] [place] [address] PCP - General Family Practice 06/18/24 documented as of this encounter
--- OUTSIDE RECORDS SUMMARY | 2024-12-10 10:55 | XMS_ITS | Encounter Summary ---
Author Organization [facility], [facility] Address [address] [place] [address] Phone Care Team Providers Care Station Inspector Name Role Phone Kp Montanez DO Primary Care Provider [phone] Reason for Visit * Reason Comments Med Refill Encounter Details Date Type Department Care Team (Late st Contact Info) Description 11/17/2021 Refill [facility] [address] [facility] [place] [address] Antolin Weiss MD [address] [place] [address] Social History Tobacco Use Types [...] on filedocumented in this encounter Care Teams Station Inspector Relationship Specialty Start Date End Date Kp Montanez DO [address] [place] [address] PCP - General Internal Medicine 01/07/23 documented as of this encounter
--- OUTSIDE RECORDS SUMMARY | 2024-12-10 10:55 | XMS_ITS | Encounter Summary ---
Author Organization [facility] Address [address] [place] [address] Phone Care Team Providers Care Financial Economist Name Role Phone Kp Montanez Primary Care Provider [phone] Encounter Details Date Type Department Care Team (Late st Contact Info) Description 12/24/2018 Orders Only [facility] [address] [place] [address] Antolin Weiss MD [address] [place] [address] Chronic kidney disease stage 3; Type 2 [...] Mckeon MA - 12/17/2018 2:15 PM CDT [facility] [address] [place] [address] [place] Antolin Weiss MD LAB BLOOD ORDERABLES Fi nal Result * PTH, intact (CKD3a) (12/17/2018 1:55 PM CDT) Parathyroid Hormone, Intact 119.3 pg/mL Blood specimen (specimen) 12/17/2018 1:55 PM CDT Leslie Mckeon MA - 12/17/2018 2:15 PM CDT [facility] [address] [place] [address] [place] Antolin Weiss MD LAB BLOOD ORDERABLES Fi nal Result * (ABNORMAL) Urine albumin / creatinine ratio (12/17/2018 1:55 PM CDT) Pathologist [facility] Urine Microalbumin 28 mg/dL Creatinine, Urine Random 76.2 mg/dL Microalb/Creat Ratio 367(A) 30 - 300 mg/g Creat Urine specimen (specimen) 12/17/2018 1:55 PM CDT Antolin Weiss MD LAB URINE ORDERABLES Fi nal Result * CBC (CKD3a) (12/17/2018 1:55 PM CDT) Pathologist [facility] WBC 8.8 K/uL Red Blood Cell Count [...] Benson MA - 12/17/2018 2:15 PM CDT [facility] [address] [place] [address] Antolin Weiss MD LAB BLOOD ORDERABLES Fi nal Result * (ABNORMAL) RFP (CKD3a) (12/17/2018 1:55 PM CDT) Pathologist [facility] Albumin 4.2 3.5 - 5.0 g/dL BUN [...] Mckeon MA - 12/17/2018 2:15 PM CDT [facility] [address] [place] [address] [place] Antolin Weiss MD LAB BLOOD ORDERABLES Fi nal Result documented in this encounter Visit Diagnoses Diagnosis Chronic kidney disease stage 3 (HCC) Type 2 diabetes mellitus with diabetic chronic kidney disease (HCC) documented in this encounter Care Teams Financial Economist Relationship Specialty Start Date End Date Kp Montanez DO [address] [place] [address] PCP - General Internal Medicine 01/07/23 documented as of this encounter
--- OUTSIDE RECORDS SUMMARY | 2024-12-10 10:55 | XMS_ITS ---
Author Name [facility], Clinic Address [address] [place] [address] Phone [phone] Organization [facility] e, NA DOCUMENT DISCLAIMER Multiple document versions may exist, please be sure you review the latest version. The information in the [facility] Continuity of Care Document represents a summary of certain health and medical information. It may not contain the complete medical history for the patient and should be independently verified. The represented time in the document is Eastern Time. PROBLEMS Problem Code Status Onset Date Atherosclerotic heart diseas e of eek coronary artery without angina pectoris I25.10 Active June 29, 2024 Chest pain, unspecified R07.9 Active [facility] ua2024 Atherosclerotic heart diseas e of eek coronary artery without angina pectoris I25.10 Active [...] diastolic (congestive) heart failure I50.42 Active [facility]el[facility] 2022 Type 2 diabetes mellitus wit h diabetic neuropathy, unspecified E11.40 Active June 01, 2022 Ischemic cardiomyopathy I25.5 Active Alistair [id number] Old myocardial infarction I25.2 Active Luigi baez 2022 terminal operations manager (current) use of anticoagulants Z79.01 Active June 01, 2022 Long-term (current) use of i njectable non-insulin antidiabetic drugs Z79.85 Active June 01, 2022 terminal operations manager (current) use of aspirin Z79.82 Active June 01, 2022 Hypothyroidism, unspecified E03.9 Active June 01, 2022 terminal operations manager (current) use of insulin Z79.4 Active June 01, 2022 Hyperlipidemia, unspecified E78.5 Active June 01, 2022 Atherosclerotic heart diseas e of eek coronary artery without angina pectoris I25.10 Active [...] - August 20, 2024 Hemoglobin x 3 36.6 % 42.0 - [...] 19.0 - 48.0 % - October 22, 2 025 Neutrophils 57.5 % 40.0 - 75.0 % [...] 27.0 - 31.0 pg High November 19, 025 Platelets 200 1000/mcL 130 - 400 1000/mcL [...] 19.0 - 48.0 % Low November 19 025 Neutrophils 76.0 % 40.0 - 75.0 % [...] - 5.9 % High July 22, 2024 BUN, Post 12 mg/dL 6 - 19 mg/dL - September 29, 2024 Bicarbonate 27 mEq/L 22 - 29 mEq/L - September 29 25 Potassium 4.0 mEq/L 3.5 - 5.1 mEq/L - September 29 Chloride 103 mEq/L 96 - 108 mEq/L - September 29 25 Sodium 141 mEq/L 136 - 145 mEq/L - September 29 025 URR, Calc 73 % 65 - 80 [...] 22 - 29 mEq/L - October 22, 2 025 Sodium 140 mEq/L 136 - 145 [...] Ran ge Provided - August 20, 2024 Krt/V 0.00 No Reference Ran ge Provided - September 08, 2024 Krt/V 0.00 No Reference Ran ge Provided - September 29, 2024 wstdKt/V without residual 1.6 No Reference Range Provided - September 29, 2024 spKt/V Gotch 1.48 No Reference Ran ge Provided - [...] Range Provided - October 22, 2024 spKt/V Gotch 1.68 No Reference Ran ge Provided - October 22, 2024 spKt/V (Daugirdas II) 1.67 No Referen ce Range Provided - October 22, 2024 wstdKt/V 2.5 No Reference Ran ge Provided - October 22, 2024 eKt/V ([place]all) 1.45 No Reference Range Provided - October 22, 2024 spKt/V Gotch 1.50 No Reference Ran ge Provided - [...] Plasma 195 pg/mL 16 - 80 pg/mL [facility] 2024 Magnesium 1.9 mg/dL 1.6 - 2.6 mg/dL [...] P Product 42 0 - October 22, 025 Alkaline Phosphatase 83 U/L 40 - 129 U/L - 2024 Corrected Ca x P Product 39 0 - November 19, 2024 Phosphorus 4.4 mg/dL 2.6 - 4.5 mg/dL - November 19, 2024 Ca x P Product 38 0 - November 19, 025 Calcium, Total 8.7 mg/dL 8.4 - 10.2 mg/dL - November 19, 2024 Liver/Nutrition Result Type Result Value Relevant Reference Range Interpre tation Date LDH 142 U/L 118 - 273 U/L - July 22 Total Protein 5.5 g/dL 6.0 - 8.5 g/dL Low September 29, 2024 Albumin (BCG) 3.4 g/dL 3.5 - 5.2 g/dL Low September 29, 2024 Glucose 142 mg/dL 70 - 100 mg/dL High September 29 25 A/G Ratio 1.6 1.0 - 2.0 - [...] mg/dL 70 - 100 mg/dL High October 22, 025 SGPT (ALT) 7 U/L 7 - 52 U/L - October 22, 2024 SGOT (AST) 10 U/L 13 - 39 U/L Low October 22, 2024 eNPCR 0.72 No Reference Ran ge Provided - November 19, 2024 Glucose 289 mg/dL 70 - 100 mg/dL High November 19, Globulin (Calc) 2.4 g/dL 2.0 - 4.0 g/dL - November 19, 2024 A/G Ratio 1.6 1.0 - 2.0 - November 19, 2024 Total Protein 6.2 g/dL 6.0 - 8.5 g/dL - November Albumin (BCG) 3.8 g/dL 3.5 - 5.2 g/dL - November Cardiovascular Result Type Result Value Relevant Reference Range Interpre tation Date Creatine Kinase 47 U/L 30 - 223 U/L - October Lipid Result Type Result Value Relevant Referen ce Range Interpretation Date Cholesterol, Total 273 mg/dL 0 - 199 mg/dL High Jul Triglycerides 247 mg/dL 0 - 149 mg/dL High July VLDL (Calculated) 49 mg/dL 10 - 30 mg/dL [facility] 2024 HDL 34 mg/dL No Reference Ran ge Provided - July 22, 2024 Cholesterol HDL Ratio 8.0 0.0 - 4.5 High Jul LDL, (Calculated) 190 mg/dL 0 - 99 [...] Value Relevant Reference Range Interpre tation Date Aluminum < 5 mcg/L 0 - 10 [...] Setting (mEq/L) 34 mEq/L Dialysis Access Hemodialysis-AV [place] t-Biological - Bovine, Left Upper Arm, Brachial Artery to Cephalic Vein Access Placed on September 28, 2022 Arterial Needle Size 15g1 Venous Needle Size 15g1 IMMUNIZATIONS Vaccine Date Dose Route Status Flu Vaccine - Flublok Trivalent March 05, 2024 0.5 mL Intramuscular Completed HEPLISAV-B, series 4 of 4 October 30, 2022 20.0 mcg Intramu scular Completed PNEUMOVAX 23 September 18, 2022 0.5 mL Intramuscular Complet ed HEPLISAV-B, series 3 of August 25, 2022 20.0 mcg Intram uscular Completed HEPLISAV-B, series 2 of 4 July 21, 2022 20.0 mcg Intram uscular [...]
--- OUTSIDE RECORDS SUMMARY | 2024-12-10 10:56 | XMS_ITS | Encounter Summary ---
Author Organization [facility], [facility] Address [address] [facility] [address] [place] [address] Phone Care Team Providers Care Doctor'S Assistant Name Role Phone Kp Montanez DO Primary Care Provider Reason for Visit * Reason Comments Med Refill Encounter Details Date Type Department Care Team (Late st Contact Info) Description 05/08/2021 Refill [facility] [address] [facility] [address] [place] [address] Ghazal Schmitt NP [address] [facility] [address] [place] [address] Social History Tobacco Use Types [...] on filedocumented in this encounter Care Teams Doctor'S Assistant Relationship Specialty Start Date End Date Kp Montanez DO [address] [place] [address] PCP - General Internal Medicine 01/07/23 documented as of this encounter
--- OUTSIDE RECORDS SUMMARY | 2024-12-10 10:56 | XMS_ITS | Clinical Summary ---
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 failure [...] Overview (04/26/2020): Seen on CT abd at [facility] 10/2018 Coronary arteriosclerosis 05/24/2019 Noncompliance with medication regimen 10/27/2018 Essential hypertension 09/06/2018 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 ilure 09/06/2018 Normocytic anemia 09/06/2018 Chronic kidney disease stage 4 06/26/2018 Overview (2020): Update for Diagnosis Load 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 06/26/2018 Combined hyperlipidemia 01/15/2013 Acquired hypothyroidism 08/18/2012 Encounters Date Type Department Care Team Description 12/03/2024 Orders Only [facility] [address] [place] [address] Yesi Madison MD 12/01/2024 Treatment [facility], [facility] [address] [place] [address] Zoey Johnson NP End stage renal disease; Dependence on renal dialysis 11/27/2024 Orders Only [facility] [address] [place] [address] Yesi Madison MD 11/24/2024 Telephone [facility] [address] [place] [address] Yesi Madison MD 11/24/2024 Treatment [facility], [facility] [address] [place] [address] Ghazal Schmitt NP End stage renal disease; Dependence on renal dialysis 11/19/2024 Orders Only [facility] [address] [place] [address] Yesi Madison MD 11/17/2024 Treatment [facility], [facility] [address] [place] [address] Ghazal Schmitt NP End stage renal disease; Dependence on renal dialysis 11/10/[address] [place] [address], [facility] [address] [place] [address] Zoey Johnson NP End stage renal disease; Dependence on renal dialysis 11/05/2024 Orders Only [facility], [facility] [address] [place] [address] Yesi Madison MD 11/05/2024 Treatment [facility], [facility] [address] [place] [address] Yesi Madison MD End stage renal disease; Dependence on renal dialysis 10/22/2024 Orders Only [facility], [facility] [address] [place] [address] Yesi Madison MD 10/20/[address] [place] [address], [facility] [address] [place] [address] Zoey Johnson NP End stage renal disease; Dependence on renal dialysis 10/20/2024 Telephone [facility], [facility] [address] [place] [address] Yesi Madison MD 10/15/2024 Orders Only [facility], [facility] [address] [place] [address] Yesi Madison MD 10/15/[address] [place] [address], [facility] [address] [place] [address] Yesi Madison MD End stage renal disease; Dependence on renal dialysis 10/08/2024 Orders Only [facility], [facility] [address] [place] [address] Yesi Madison MD 10/06/[address] [place] [address], [facility] [address] [place] [address] Ghazal Schmitt NP End stage renal disease; Dependence on renal dialysis 10/05/2024 Telephone [facility], [facility] [address] [place] [address] Yesi Madison MD 10/01/2024 Orders Only [facility], [facility] [address] [place] [address] Yesi Madison MD 09/29/2024 Orders Only [facility], [facility] [address] [place] [address] Yesi Madison MD 09/29/2024 TCM in Dialysis Clinic [address] [place] [address], [facility] [address] [place] [address] Zoey Johnson NP 09/29/[address] [place] [address], [facility] [address] [place] [address] Zoey Johnson NP End stage renal disease; Dependence on renal dialysis 09/26/2024 Orders [facility], [facility] [address] [place] [address] Yesi Madison MD 09/17/2024 Orders Only [facility], [facility] [address] [place] [address] Yesi Madison MD 09/10/2024 Orders Only [facility], [facility] [address] [place] [address] Yesi Madison MD from Last 3 Months Immunizations Immunization Administration [...] 09/19/2023 09/18/2022, 05/25/2019 Influenza Vaccine (#1) 2025 4, 06/14/2022, 06/06/2020, Additional history exists Diabetes: Hemoglobin A1C 01/22/2025 025, 07/22/2024, 06/27/2024, Additional history exists Pneumococcal [...] 09/26/2024 HEMATOLOGY Routine 09/17/2024 HEMATOLOGY Routine 09/10/2024 from Last 3 Months Results * (ABNORMAL) HEMATOLOGY (12/03/2024) Only the most recent of12 resultswithin the time period is included. Hemoglobin 12.6(L) 14.0 - 18.0 g/dL [facility] Hemoglobin x 3 37.8(L) 42.0 - 54.0 % [facility] 12/03/2024 12/04/2024 10: 44 AM CDT Narrative [facility] - 12/04/2024 Unless otherwise specified, test(s) performed at: [facility], [address] [place] [address] HAND SURGEON: Jose Martin Mariscal M.D. For any questions, please call customer service at FREQUENCY:OTHER Resulting Agency Comment Specimen source: Blood us Yesi Madison MD LAB BLOOD ORDERABLES Final Re sult [facility] See order comments or contact performing lab Unknown, [place] * [facility] Chemistry (11/27/2024) Only the most recent of5 resultswithin the time period is included. Pathologist [facility] Potassium 4.1 3.5 - 5.1 mEq/L [facility] 11/27/2024 11/28/2024 10: 57 AM CDT Narrative [facility] - 11/28/2024 Unless otherwise specified, test(s) performed at: [facility], [address] [place] [address] HAND SURGEON: Jose Martin Mariscal M.D. For any questions, please call customer service at FREQUENCY:OTHER Resulting Agency Comment Specimen source: Serum us Yesi Madison MD LAB BLOOD ORDERABLES Final Re sult Performing Organization Address [facility] de Phone Number [facility] See order comments or contact performing lab Unknown, [place] * [facility] (11/19/2024) Only the most recent of3 resultswithin the time period is included. Pathologist [facility] % Urea Reduction 74 65 - 80 % [facility] 11/19/2024 11/21/2024 10: 46 AM CDT Narrative [facility] - 11/21/2024 Unless otherwise specified, test(s) performed at: [facility], [address] [place] [address] HAND SURGEON: Jose Martin Mariscal M.D. For any questions, please call customer service at FREQUENCY:MONTHLY Resulting Agency Comment Specimen source: Plasma us Yesi Madison MD LAB BLOOD ORDERABLES Final Re sult Performing Organization Address [facility] de Phone Number [facility] See order comments or contact performing lab Unknown, [place] * POST CHEMISTRY (11/19/2024) Only the most recent of3 resultswithin the time period is included. Pathologist [facility] BUN Post Dialysis 11 6 - 19 mg/dL [facility] 11/19/2024 11/21/2024 10: 46 AM CDT Narrative [facility] - 11/21/2024 Unless otherwise specified, test(s) performed at: [facility], [address] [place] [address] HAND SURGEON: Jose Martin Mariscal M.D. For any questions, please call customer service at FREQUENCY:MONTHLY Resulting Agency Comment Specimen source: Plasma us Yesi Madison MD LAB BLOOD ORDERABLES Final Re sult Performing Organization Address [facility] de Phone Number [facility] See order comments or contact performing lab Unknown, [place] * [facility] Results (11/19/2024) Only the most recent of3 resultswithin the time period is included. Pathologist [facility] eKt/V ([place]) 1.30 [facility] PCR 55.10 [facility] eKdrt/V 1.29 [facility] spKt/V (Daugirdas II) 1.49 [facility] WSTDKT/V 2.4 [facility] spKt/V Gotch 1.50 [facility] eNPCR 0.72 [facility] nPCR_HD 0.79 [facility] eKt/V Gotch 1.29 [facility] 11/19/2024 11/19/2024 us Valdo Ordering Provider LAB BLOOD ORDERABLES Final Result [facility] Contact Performing lab Unknown, [place] * (ABNORMAL) THYROIDS (10/22/2024) Pathologist [facility] TSH 4.142(H) 0.300 - 3.000 mIU/L [facility] Comment: The reference range of 0.300-3.000 mIU/L is recommended by the [place] [employer]ocrin[employer] (AACE). An ESRD population contains about 20% of individuals with TSH of up to 20 mIU/L and normal free T4 consistent with non-thyroidal illness. ESRD patients with true hypothyroidism develop persistent values above 20 mIU/L. 10/22/2024 10/23/2024 1:1 0 PM CDT Narrative [facility] - 10/23/2024 Unless otherwise specified, test(s) performed at: [facility], [address] [place] [address] HAND SURGEON: Jose Martin Mariscal M.D. For any questions, please call customer service at FREQUENCY:MONTHLY Resulting Agency Comment Specimen source: Serum us Yesi Madison MD LAB BLOOD ORDERABLES Final Re sult [facility] See order comments or contact performing lab Unknown, [place] * SPECIAL CHEMISTRY (10/22/2024) Only the most recent of2 resultswithin the time period is included. Creatine Kinase (CK/CPK) 47 30 - 223 U/L [email or web address] 10/22/2024 10/23/2024 1:1 0 PM CDT Narrative Resulting Agency Comment Specimen source: Serum us Yesi Madison MD LAB BLOOD BANK TEST ORDERABLE S Final Result [facility] See order comments or contact performing lab Unknown, [place] from Last 3 Months Insurance [facility] [place] [address] Care Teams Box Office Clerk Relationship Specialty Start Date End Date Kp Montanez DO [address] [facility] [place] [address] PCP - General Internal Medicine 01/07/23
--- OUTSIDE RECORDS SUMMARY | 2024-12-10 10:56 | XMS_ITS | Encounter Summary ---
Author Organization [facility], [facility] Address [address] [place] [address] Phone Care Team Providers Care Boiler Out Name Role Phone MontanezKp kevin Primary Care Provider [phone] Encounter Details Date Type Department Care Team (Late st Contact Info) Description 07/14/2024 [facility] [address] [place] [address] Ayad Monahan, ORTHOPEDIC TECH [address] [place] [address] Social History Tobacco Use Types [...] 07/14/2024 The patient was seen for a [id number] visit as part of Transitional Care Management services. Attending Sales And Service Engineer: RITA MENENDEZ Dialysis Location: [facility] Schedule: Shift: 1 HOSPITALIZATION SUMMARY [...] 97.8*F Current Dialysis Vitals BP Sit: 140/78 AP/LUMP MAKER: -- Pulse: 79 CARE COORDINATION Post-discharge follow-up appointments reviewed with the patient. COMMENTS: following Cardiology EDUCATION Education relevant to the discharge diagnosis provided to the patient or caregiver VISIT DIAGNOSES CPT Code 24145 - High complexity, seen 8-14 days post discharge or moderate complexity, seen [id number] days of discharge. R07.9 Chest pain, unspecified N18.6, Z99.2 End stage renal disease;Dependence on renal dialysis Signed by: AYAD MONAHAN NP on 07/14/2024 at 01:27:20 PM Transcribed by: AYAD MONAHAN NP on 07/14/2024 at 01:27:20 PM documented in this encounter Plan of Treatment Not on file documented as of this encounter Visit Diagnoses Not on filedocumented in this encounter Care Teams Boiler Out Relationship Specialty Start Date End Date Kp Montanez DO [address] [place] [address] PCP - General Internal Medicine 01/07/23 documented as of this encounter
--- OUTSIDE RECORDS SUMMARY | 2024-12-10 10:56 | XMS_ITS | Clinical Summary ---
Author Organization [facility] Address [address] [place] [address] Care Team Providers Care Animal Eviscerator Name Role Phone Dez Evans MD Primary Care Provider [phone] Allergies Active Allergy Reactions Criticality Noted Date [...] tablet Take 88 mcg by mouth daily dementia program director. 9 Active atorvastatin (LIPITOR) 40 mg tablet [...] sugar). 4 Active naloxone (NARCAN) 4 mg/spray [place], Non-Aerosol EMERGENCY USE ONLY: Administer 1 spray (4 mg) in one nostril one time. May repeat in alternating nostrils every 2-3 min until responsive or EMS arrives. 2 Each 3 5 Active sacubitriL-vals tommy (ENTRESTO) 24-26 mg Tablet Take 1 Tablet by mouth daily. 200 Tablet 3 07/03/2024 4:14 PM EDUCATION PROGRAM SPECIALIST 5 Active carvediloL (COREG) 12.5 mg tablet Take 1 Tablet (12.5 mg) by mouth 2 times daily. 30 Tablet 07/03/2024 4:14 PM EDUCATION PROGRAM SPECIALIST 5 Active isosorbide mononitrate (IMDUR) 60 mg Extended Release 24 hour tablet Take 1 Tablet (60 mg) by mouth daily in the morning. 30 Tablet 07/03/2024 4:14 PM EDUCATION PROGRAM SPECIALIST 5 Active HYDROcodone-fede taminophen (NORCO) 5-325 mg [...] (10/17/2022): Added automatically from request for surgery [id number] Scrotal pain 02/07/2021 Adenoma of both adrenal glands 05/24/2019 Overview (10/17/2022): [facility] ab[facility] 10/[address] ab[facility] 10/2018 Diverticulosis 05/24/2019 History of pulmonary [...] Overview (11/24/2020): secondary to fasciotomy Atherosclerosis of [place] co ronary artery of [place] heart with stable angina pectoris 08/18/2012 DM [...] Type Department Care Team Description 12/04/2024 Telephone [facility] Vascular Surgery [place] [address] [place] [address] Shannan Goodwin MD Question 11/13/2024 3:30 PM CDT Office Visit [facility] Vascular Surgery [place] [address] [place] [address] Shannan Goodwin MD ESRD (end stage renal disease) ([facility]) (Primary Dx); AV graft stenosis, subsequent encounter 11/09/2024 Telephone [place] [id number] [facility] [address] [place] [address] Stephani Keen MD Severe pain in right arm/shoulder 11/03/2024 11:02 AM CDT - 11/03/2024 11:59 PM CDT Hospital Encounter [facility] Interventional Radiology [address] [address] Yesi Madison MD Birlew, Ryan Avery, MD Discharge Disposition: Home or Self Care 11/02/2024 Telephone [facility] Interventional Radiology [address] [address] Sabra Barr RN Procedure (Instructed patient for scheduled procedure with sedation on 11/03/24. Check at the [facility] entrance at 1230. Instructed they need to have a trailer tank truck driver and someone to stay with [...] small sip of water. /) 11/02/2024 Telephone [facility] [address] [place] [address] Stephani Keen MD PT needs to cancel Pacemaker appointment 11/02/2024 Telephone [facility] Vascular Surgery [place] [address] [place] [address] Shannan Goodwin MD Appointment Notification 10/30/2024 12:51 PM CDT - 10/30/2024 11:59 PM CDT Hospital Encounter [facility] Dialysis [address] [address] Discharge Disposition: Home or Self Care 10/30/2024 11:30 AM CDT - 10/30/2024 11:59 PM CDT Hospital Encounter [facility] Interventional Radiology [address] [place] [address] [place] [phone] Yesi Madison MD Birlew, Ryan Avery, MD Discharge Disposition: Home or Self Care 10/28/2024 Telephone [facility] Vascular Surgery [address] [place] [phone] Shannan Goodwin MD Appointment Verification 10/27/2024 [facility] Vascular Surgery [address] [phone] Shannan Goodwin MD Question 10/20/2024 External Device Data STL ABSTRACTION Provider, Abstract 10/19/2024 Telephone [facility] Vascular Lab and Vein Center[address] [phone] Shannan Goodwin MD Information 09/28/2024 [facility] Vascular Surgery [address] [phone] Shannan Goodwin MD Needs Appointment 09/24/2024 [place] [address] [facility] [address] [place] [phone] Marla Rodriges FNP Appointment Notification 09/22/2024 External Device Data STL ABSTRACTION Provider, Abstract 09/19/2024 2:43 PM CDT - 09/24/2024 4:56 PM CDT Hospital Encounter [address] Medical [address] [place] [phone] Lucia Hernandez DO Abbas, Muhammad Khalid, MD Bandaru, Kiran Babu, MD Neupane, Gagan, MD AV fistula occlusion Discharge Disposition: Home or Self Care 09/19/2024 10:47 AM CDT - 09/19/2024 1:03 PM CDT Emergency [facility] Emergency Medicine [address] [place] [phone] Joesph Larios MD Vascular graft occlusion, initial encounter (Primary Dx) Discharge Disposition: Home or Self Care 09/19/2024 12:15 AM CDT - 09/19/2024 11:59 PM CDT Hospital Encounter [facility] Emergency Medical Services [address] [place] [address] Amb[facility], [facility] Discharge Disposition: [facility] 09/19/2024 Travel 09/11/2024 Telephone [facility] Vascular Surgery [place] [address] [place] [address] Pat Archibald FNP Question from Last 3 Months Immunizations Immunization Administration Dates Next Due (ADACEL/BOOSTRIX)(10 YR UP) TDAP VACCINE, 0.5ML, IM 05/30/2021 (HEPLISAV-B)(18 YR UP) HEPAT ITIS B VACCINE CPG-ADJUVANTED (HEPB-CPG) 2-4 DOSE, IM 10/30/2022,08/25/2022,07/21/2022,06/23 (PNEUMOVAX 23)(50 YRS UP) PN EUMOCOCCAL POLYSACCHARIDE (PPV23) 0.5 ML, IM 09/18/2022,05/25/2019 (PREVNAR 20)(6 WKS UP) PNEUM OCOCCAL CONJUGATE VACCINE 20-VALENT (PCV20), POLYSACCHARIDE [id number] CONJUGATE, ADJUVANT 0.5 ML (PF) IM 06/26/2022 [...] on file Legal Sex Male 2:43 AM EDUCATION PROGRAM SPECIALIST Gender Identity Not on file Sexual Orientation [...] Description 02/12/2025 3:30 PM CDT Office Visit [facility] Vascular Surgery [place] [address] [place] [phone] Shannan Goodwin MD [address] [place] [address] Health Maintenance Due Date Last [...] 05/02/2024 3, 01/25/2019, 09/06/2018, Additional history exists Medicare Advantage (PR) Preventative Visit/Annual Wellness Visit 05/20/2024 INFLUENZA VACCINE (#1) 2024 4, 06/14/2022, 03/01/2021, Additional history exists DIABETES HBA1C Q 6 MONTHS 04/23/20252024, 06/27/2024, 05/02/2023, Additional history exists DTAP/TDAP/TD VACCINES (2 - T d or Tdap) 05/30/2031 05/30/2021, 05/30/2021 ZOSTER VACCINE Completed 08/10/2020, 06/06/2020 Medical Devices Implanted Type Area Supervisor [employer] Device Identifier Shelf Expiration Date Model / Serial / Lot Clip Ligating Horizon Red [id number] - Csc - [id number] Implanted:Qty : 1 on 09/28/2022 by Guero Felder MD at [facility] Clip Left: Arm TELE[employer]LEX INC [id number] 12/25/2026 [id number] / / [id number] Clip Ligating Horizon Med Ti 603732 - Csc - [id number] Implanted:Qty : 1 on 09/28/2022 by Guero Felder MD at [facility] Clip Left: Arm TELEFLEX- WECK CLOSURE SYS [id number] 10/08/2026 [id number] / / [id number] Clip Ligating Horizon Red [id number] - [facility] - [id number] Implanted:Qty : 1 on 11/14/2022 by Jimmy Anaya MD at [facility] Clip Left: Arm TELE[employer]LEX INC [id number] 12/25/2026 [id number] / / [id number] Clip Ligating Horizon Med Ti 459662 - Csc - [id number] Implanted:Qty : 1 on 11/14/2022 by Jimmy Anaya MD at [facility] Clip Left: Arm TELEFLEX- WECK CLOSURE SYS [id number] 02/12/2027 [id number] / / [id number] Closure Perclose Prostyle Sut Mediate 72626-88 - [id number] Implanted:Qty : 1 on 05/03/2023 by Jay Bales MD at [facility] Closure Device Right: Groin SALAS- VASC DEVICE 01/17/2025 06787-8 3 / / [id number] Dev Closure Angioseal 6fr Vip 195621 - [id number] Implanted:Qty : 1 on 05/03/2023 by Jay Bales MD at [facility] Closure Device Right: Groin [facility] 10/11/2023 [id number] / / [id number] Dev Closure Angioseal 6fr Vip 746743 - [id number] Implanted:Qty : 1 on 06/19/2024 by Prince Barfield MD at [facility] Closure Device Right: Groin TERUMO- CARDIOVASC SYS 01/13/2025 [id number] / / [id number] Dev Icd Acticor 7 Vr-T Dx Df4 Hybrid 672208 - [id number] Implanted:Qty : 1 on 07/23/2024 by Stephani Keen MD at [facility] Defibrillator Right: Chest Wall [employer] INC [id number] 05/19/2026 [id number] / [id number] / Graft Vasc Propaten 4-5jjb98sz [id number] - [id number] Implanted:Qty : 1 on 09/28/2022 by Guero Felder MD at [facility] Graft Left: Arm [employer] [id number] 04/02/2026 [id number] / [id number] 2026-03 Hemostatic Surgicel 1x2in 1960 - [id number] Implanted:Qty : 1 on 09/28/2022 by Guero Felder MD at [facility] Hemostatic Left: Arm J&J- ETHICON INC [id number] 02/16/20251960 / / [id number] Hemostatic Surgicel 1x2in 1960 - [id number] Implanted:Qty : 1 on 09/28/2022 by Guero Felder MD at [facility] Hemostatic Left: Arm J&J- [employer]IC[employer] INC [id number] 12/17/20241960 / / [id number] Lead Endocardial Pamira S Dx 65/15 Rv W Atr Sensing 243426 - [id number] Implanted:Qty : 1 on 07/23/2024 by Stephani Keen MD at [facility] Lead Right: Chest Wall [employer] [id number] 05/19/2026 [id number] / [id number] / Power Port Implanted:(Qu antity not on file) Explanted:(Qu antity not on file) Port Port- 9 Implanted: (Quantity not on file) Port Suture Perchik 2 Button Pouch [id number] - [id number] Implanted:Qty : 1 on 08/23/2023 at [facility] Screw [employer] [id number] / / Description:This is Not an I mplant Stent Implanted:(Qu antity not on file) Explanted:(Qu antity not on file) Stent Stent Synergy Xd 3.5x16mm Evrlms Elut [id number] - [id number] Implanted:Qty : 1 on 05/03/2023 by Jay Bales MD at [facility] Stent Left: Coronary [employer] PATRICK 01/01/2025 [id number] / / [id number] Stent Viabahn Hep 8mmx7.5xcm [id number] - [id number] Implanted:Qty : 1 on 10/23/2023 by Jimmy Anaya MD at [facility] Stent Left: Arm [employer] [id number] 12/23/2025 [id number] / [id number] / Procedures Procedure Name Priority Date/Time Associated Diagnosis Comments IR FISTULOGRAM Routine 11/03/2024 1:16 PM CDT ESRD (end stage renal disease) ([facility]) TELEMETRY REPORT 09/25/2024 2:39 AM CDT POC [...] CDT HEMOGLOBIN A1C Routine 06/27/2024 5:39 AM EDUCATION PROGRAM SPECIALIST LIPID PANEL Routine 05/02/2023 9:36 PM EDUCATION PROGRAM SPECIALIST from Last 3 Months or Most Recently [...] flows.. DIAGNOSIS: ESRD (end stage renal disease) ([facility]). Medications: Fentanyl and versed were titrated to effect. Moderate (conscious) sedation for this procedure was performed with continuous physician supervision. Medical history, physical exam, drug dosages, routes of drug administration, monitoring data, and precise times of service are documented in the medical record on the [facility]-approved form, 'Sedative/Analgesic Administration for Diagnostic and Therapeutic [...] transitional dilator was exchanged for a 6 Burkinan vascular sheath. Angioplasty of recurrent moderate stenosis [...] was obtained and exchanged for a 6 Burkinan sheath. A Glidewire was advanced retrograde into [...] flows.. DIAGNOSIS: ESRD (end stage renal disease) ([facility]). Medications: Fentanyl and versed were titrated to effect. Moderate (conscious) sedation for this procedure was performed with continuous physician supervision. Medical history, physical exam, drug dosages, routes of drug administration, monitoring data, and precise times of service are documented in the medical record on the [facility]-approved form, 'Sedative/Analgesic Administration for Diagnostic and Therapeutic [...] transitional dilator was exchanged for a 6 Burkinan vascular sheath. Angioplasty of recurrent moderate stenosis [...] was obtained and exchanged for a 6 Burkinan sheath. A Glidewire was advanced retrograde into [...] - 99 mg/dL 09/24/2024 12:46 PM CDT [facility] SPECIMEN SOURCE, GLUCOSE POC Capillary 09/24/2024 12:46 PM CDT [facility] Blood, whole 09/24/2024 12:4 6 PM CDT 09/24/2024 1:21 PM CDT Cas Barreto MD POINT OF CARE TESTING Final Res ult [facility] CLIA # [id number] [address] [place] [address] * HEMODIALYSIS (09/24/2024 7:53 AM CDT) Yesi Hernandez MD - 09/24/2024 7:53 AM CDT Yesi Madison MD 09/24/2024 8:22 AM [facility] - Procedure Note Primary High Wire Artist: Dr. Yesi Madison PROCEDURE: Intermittent Hemodialysis INDICATION: [...] ultrafiltration with rinse back. Yesi Madison MD [facility] 09/24/24, 7:54 AM Pamela Sevilla DO DIALYSIS ORDERABLES Edited Resu lt - Final * (ABNORMAL) CBC WITH DIFFERENTIAL (09/24/2024 1:23 AM CDT) Only the most recent of5 resultswithin the time period is included. WBC 7.3 4.8 - 10.8 K/uL 09/24/2024 1:37 AM [facility] RBC 3.24(L) 4.60 - 6.20 M/uL 09/24/2024 1:37 AM [facility] HEMOGLOBIN 10.3(L) 14.0 - 18.0 g/dL 09/24/2024 1:37 AM [facility] HEMATOCRIT 30.2(L) 41.0 - 53.0 % 09/24/2024 1:37 AM T [facility] MCV 93.2 84.0 - 103.0 fL 09/24/2024 1:37 AM [facility] MCH 31.8 27.0 - 34.0 pg 09/24/2024 1:37 AM [facility] MCHC 34.1 30.0 - 35.0 g/dL 09/24/2024 1:37 AM [facility] PLATELETS 207 140 - 440 K/uL 09/24/2024 1:37 AM [facility] MPV 9.3 8.9 - 12.8 fL 09/24/2024 1:37 AM [facility] RDW 15.5(H) 11.0 - 14.5 % 09/24/2024 1:37 AM [facility] RDW-STDEV 51.8 37.0 - 54.0 fL 09/24/2024 1:37 AM [facility] NEUTROPHILS 60 42 - 75 % 09/24/2024 1:37 AM [facility] LYMPHOCYTES 27 24 - 44 % 09/24/2024 1:37 AM [facility] [employer] [facility] MONOCYTES 9 2 - 10 % 09/24/2024 1:37 AM [facility] [employer] [facility] EOSINOPHILS 3 0 - 7 % 09/24/2024 1:37 AM [facility] BASOPHILS 1 0 - 1 % 09/24/2024 1:37 AM [facility] IMMATURE GRANULOCYTES 0 0 - 2 % 09/24/2024 1:37 AM [facility] NEUTROPHIL ABSOLUTE 4.37 2.00 - 8.00 K/uL 09/24/2024 1:37 AM [facility] LYMPHOCYTE ABSOLUTE 1.98 1.20 - 4.00 K/uL 09/24/2024 1:37 AM [facility] MONOCYTE ABSOLUTE 0.65(H) 0.10 - 0.60 K/uL 09/24/2024 1:37 AM [facility] EOSINOPHIL ABSOLUTE 0.22 0.00 - 0.70 K/uL 09/24/2024 1:37 AM [facility] BASOPHILS ABSOLUTE 0.04 0.00 - 0.20 K/uL 09/24/2024 1:37 AM [facility] IMMATURE GRANULOCYTES ABSOLUTE 0.03 0.00 - 0.10 K/uL 09/24/2024 1:37 AM [facility] SMEAR REVIEWED: NA - Not Applicable 09/24/2024 1:37 AM CDT [facility] Blood Venipuncture / Unknown 09/24/2024 1:23 AM CDT 09/24/2024 1:31 AM CDT us Cas Barreto MD HEMATOLOGY ORDERABLES Final Res ult [facility] CLIA # [id number] [facility] [address] [place] [address] * (ABNORMAL) BASIC METABOLIC PANEL (09/24/2024 1:23 AM CDT) Only the most recent of5 resultswithin the time period is included. SODIUM 134(L) 136 - 145 mmol/L 09/24/2024 2:06 AM [facility] POTASSIUM 3.9 3.5 - 5.1 mmol/L 09/24/2024 2:06 AM [facility] Comment:Moderate hemolysis p resent. Can cause significant falsely elevated result. Redraw if indicated. CHLORIDE 96(L) 98 - 107 mmol/L 09/24/2024 2:06 AM [facility] CO2 26 22 - 29 mmol/L 09/24/2024 2:06 AM [facility] CALCIUM 8.5(L) 8.6 - 10.0 mg/dL 09/24/2024 2:06 AM [facility] BUN 35(H) 6 - 20 mg/dL 09/24/2024 2:06 AM [facility] CREATININE 4.10(H) 0.67 - 1.17 mg/dL 09/24/2024 2:06 AM [facility] GLUCOSE 133(H) 74 - 99 mg/dL 09/24/2024 2:06 AM [facility] GFR 16(L) >=60 mL/min/1. 73 sq meter 09/24/2024 2:06 AM [facility] Comment:eGFR calculated with 2020 CKD-EPI equation. Vegetarian diet, extremely high or low muscle mass, and may affect results. Cystatin C with Glomerular Filtration Rate is a suitable alternative for these patients. ANION GAP 12 9 - 20 mmol/L 09/24/2024 2:06 AM CDT [facility] Blood Venipuncture / Unknown 09/24/2024 1:23 AM CDT 09/24/2024 1:31 AM CDT Cas Barreto MD CHEMISTRY ORDERABLES Final Resu lt Performing Organization Address [facility] Co de Phone Number [facility] CLIA # [id number] [address] [address] * (ABNORMAL) TROPONIN (09/23/2024 3:22 PM CDT) TROPONIN T, 5TH GEN 42(H) <=15 ng/L 09/23/2024 4:17 PM CDT [facility] Blood Venipuncture / Unknown 09/23/2024 3:22 PM CDT 09/23/2024 3:46 PM CDT Narrative [facility] - 09/23/2024 4:17 PM CDT Troponin elevated. 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 : 1970 Requested By: Order Number: [id number] Becky Reese Measurements Intervals [place] Rate: 79 P: 42 NH: 182 QRS: 23 QRSD: 112 T: 121 QT: 394 QTc: 451 Interpretive Statements Normal sinus rhythm Anterior infarct, age undetermined Abnormal ECG Electronically Signed On 09-23-2024 20:04:59 CDT by Erasmo Reese Procedure Note Erasmo Reese MD - 09/23/[address] [address] Test Date: 2024-09-23 Pat Name: SMITHA QUEEN Department: 12 Room: [address] [place] [address] Gender: Male 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: 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 : 1970 Requested By: Order Number: [id number] Becky RITTER: Erasmo Reese Measurements Intervals [place] Rate: 79 P: 42 NH: 182 QRS: 23 QRSD: 112 T: 121 QT: 394 QTc: 451 Interpretive Statements Normal sinus rhythm Anterior infarct, age undetermined Abnormal ECG Electronically Signed On 09-23-2024 20:04:59 CDT by Erasmo Reese us Cas Barreto MD ECG ORDERABLES Final Result INTERFACE SYSTEM Refer to clinic/hospital department * HEMODIALYSIS (09/22/2024 12:36 PM CDT) Narrative eYsi Madison MD - 09/22/2024 12:36 PM CDT Yesi Madison MD 09/22/2024 1:21 PM [facility] - Procedure Note Primary High Wire Artist: Dr. Yesi Madison PROCEDURE: Intermittent Hemodialysis INDICATION: [...] HD days while inpatient. Zoey Johnson NP [facility] 09/22/24, 12:36 PM Pamela Sevilla DO DIALYSIS ORDERABLES Final Resul t * HEMODIALYSIS (09/21/2024 4:14 PM CDT) Zita Blank MD - 09/21/2024 4:14 PM CDT Zita Gilbert MD 09/21/2024 7:36 PM [facility] - Procedure Note Primary High Wire Artist: Dr. Yesi Madison PROCEDURE: Intermittent Hemodialysis INDICATION: [...] HD days while inpatient. Zoey Johnson NP [facility] 09/21/24, 4:15 PM us Windy Chirinos SPRAY MACHINE OPERATOR DIALYSIS ORDERABLES Final R esult * US DUPLEX ARTERIAL ARM LEFT (09/19/2024 3:26 PM CDT) Anatomical Region Laterality Modality Upper Extremity Ultrasound 09/19/2024 3:04 PM CDT Narrative 09/19/2024 4:28 PM CDT [facility] Noninvasive Vascular Laboratory [address] [place] [address] Noninvasive Vascular Lab Upper Extremity Hemodialysis Access Follow-up Evaluation Patient: Smitha Queen Junior Study ID: US DUPLEX ARTERI Gender: Eran : 1970 Age: 54 Room: 15 Height: 165.1cm Weight: 93.8kg BSA: 2.11m^2 Pt status: Outpatient Study Date: 09/19/2024 Study Time: 03:04:00 PM BSA: 2.11m^2 Ordering: Lucia Hernandez Interpreting:Erasmo Berg Auto Design Checker: Coby Chau RVT Indications: Concern for thrombosed [...] the supine position. Image quality was good. [facility] Vascular Lab is accredited with the Intersocietal Commission for the Accreditation of Vascular Laboratories (ICAVL) Prepared and Electronically Authenticated Erasmo Berg Confirmed 09/19/2024 16:28 Procedure Note Earsmo Berg MD - 09/19/2024 [facility] Noninvasive Vascular Laboratory [address] [place] [address] Noninvasive Vascular Lab Upper Extremity Hemodialysis Access Follow-up Evaluation Patient: Smitha Queen Junior Study ID: US DUPLEX ARTERI Gender: M : 1970 Age: 54 Room: Height: 165.1cm Weight: 93.8kg BSA: 2.11m^2 Pt status: Outpatient Study Date: 09/19/2024 Study Time: 03:04:00 PM BSA: 2.11m^2 Ordering: Lucia Hernandez Interpreting:Erasmo Berg Auto Design Checker: Coby Chau RVT Indications: Concern for thrombosed [...] the supine position. Image quality was good. [facility] Vascular Lab is accredited with theIntersocietal Commission for the Accreditation of Vascular Laboratories (ICAVL) Prepared and Electronically Authenticated Erasmo Berg Confirmed 09/19/2024 16:28 us Lucia Hernandez DO US ORDERABLES Final Result * (ABNORMAL) PROTIME-INR (09/19/2024 3:11 PM CDT) Only the most recent of2 resultswithin the time period is included. PROTIME 14.8(H) 12.6 - 14.6 Seconds 09/19/2024 3:45 PM CDT [facility] INR 1.1 0.8 - 1.2 09/19/2024 3:45 PM CDT [facility] Blood Venipuncture / Unknown 09/19/2024 3:11 PM CDT 09/19/2024 3:22 PM CDT [facility] [employer] [facility] - 09/19/2024 3:45 PM CDT Expected Values for INR: DVT/PE Goal INR 2.5; range 2.0 - 3.0 Valve Replacement Tissue Goal INR 2.5; range 2.0 - 3.0 Valve Replacement Mechanical Goal INR 3.0; range 2.5 - 3.5 POST-CT Goal INR 2.5; range 2.0 - 3.0 or Goal INR 3.0; range 2.5 - 3.5 Atrial Fibrillation Goal INR 2.5; range 2.0 - 3.0 Ischemic Stroke Goal INR 2.5; range 2.0 - 3.0 Lucia Hernandez DO HEMATOLOGY ORDERABLES Final Resu lt Performing Organization Address [facility] Co de Phone Number [facility] [place] CLIA # [id number] [address] [address] * TYPE AND SCREEN (09/19/2024 3:11 PM CDT) ABO GROUP O 09/19/2024 4:00 PM CDT [facility] [place] RH (D) TYPE Negative 09/19/2024 4:00 PM CDT [facility] [place] [facility] ANTIBODY SCREEN Negative 09/19/2024 4:00 PM CDT [facility] [place] [facility] Blood Venipuncture / Unknown 09/19/2024 3:11 PM CDT 09/19/2024 3:22 PM CDT us Lucia Hernandez DO BLOOD BANK ORDERABLES Edited Res ult - Final Performing Organization Address [facility] [facility] Co de Phone Number [facility] [place] CLIA#[id number] [facility] [place] [address], [place] [phone] * PTT (09/19/2024 11:29 AM CDT) PTT 30.1 25.8 - 34.0 seconds 09/19/2024 11:57 AM CDT [facility] Blood BLOOD SPECIMEN / Unknown Collection / Unknown 09/19/2024 11:29 AM CDT 09/19/2024 11:38 AM CDT us Joesph Larios MD HEMATOLOGY ORDERABLES Final Res ult Performing Organization Address [facility] Co de Phone Number [facility] CLIA # [id number] [address] [place] [address] * (ABNORMAL) D-DIMER (09/19/2024 11:29 AM CDT) D-DIMER QUANT 1.25(H) <0.50 ug/mL FEU 09/19/2024 12:00 PM CDT [facility] Blood BLOOD SPECIMEN / Unknown Collection / Unknown 09/19/2024 11:29 AM CDT 09/19/2024 11:38 AM CDT Narrative [facility] - 09/19/2024 12:00 PM CDT D-Dimer assay [...] Larios MD HEMATOLOGY ORDERABLES Final Res ult [facility] CLIA # [id number] [address] [place] [address] * C-REACTIVE PROTEIN (09/19/2024 11:29 AM CDT) CRP 4.7 <5.0 mg/L 09/19/2024 12:00 PM CDT [facility] Blood BLOOD SPECIMEN / Unknown Collection / Unknown 09/19/2024 11:29 AM CDT 09/19/2024 11:38 AM CDT us Joesph Larios MD CHEMISTRY ORDERABLES Final Resu lt Performing Organization Address [facility] Co de Phone Number [facility] CLIA # [id number] [address] [place] [address] * (ABNORMAL) BRAIN NATRIURETIC PEPTIDE, BNP OR PROBNP (09/19/2024 11:29 AM CDT) PROBNP, N TERMINAL 1,241(H) 0 - 125 pg/mL 09/19/2024 12:00 PM CDT [facility] Comment: INTERPRETIVE COMMENT based on diagnosis: [...] Larios MD CHEMISTRY ORDERABLES Final Resu lt [facility] CLIA # [id number] [address] [place] [address] * MAGNESIUM LEVEL (09/19/2024 11:29 AM CDT) MAGNESIUM 1.9 1.6 - 2.6 mg/dL 09/19/2024 12:00 PM CDT [facility] Blood BLOOD SPECIMEN / Unknown Collection / Unknown 09/19/2024 11:29 AM CDT 09/19/2024 11:38 AM CDT us Joesph Larios MD CHEMISTRY ORDERABLES Final Resu lt [facility] CLYOAN # [id number] [address] [place] [address] * (ABNORMAL) COMPREHENSIVE METABOLIC PANEL (09/19/2024 11:29 AM CDT) SODIUM 138 136 - 145 mmol/L 09/19/2024 12:00 PM [facility] POTASSIUM 4.4 3.5 - 5.1 mmol/L 09/19/2024 12:00 PM [facility] CHLORIDE 99 98 - 107 mmol/L 09/19/2024 12:00 PM [facility] CO2 29 22 - 29 mmol/L 09/19/2024 12:00 PM [facility] CALCIUM 8.7 8.6 - 10.0 mg/dL 09/19/2024 12:00 PM [facility] BUN 35(H) 6 - 20 mg/dL 09/19/2024 12:00 PM [facility] CREATININE 3.36(H) 0.67 - 1.17 mg/dL 09/19/2024 12:00 PM [facility] GLUCOSE 141(H) 74 - 99 mg/dL 09/19/2024 12:00 PM [facility] TOTAL PROTEIN 5.7(L) 6.6 - 8.7 g/dL 09/19/2024 12:00 PM [facility] ALBUMIN 3.5(L) 4.0 - 4.9 g/dL 09/19/2024 12:00 PM [facility] BILIRUBIN TOTAL 0.4 0.0 - 1.2 mg/dL 09/19/2024 12:00 PM [facility] ALKALINE PHOSPHATASE 86 40 - 129 U/L 09/19/2024 12:00 PM [facility] AST 14 0 - 50 U/L 09/19/2024 12:00 PM [facility] ALT 9 0 - 50 U/L 09/19/2024 12:00 PM [facility] GFR 21(L) >=60 mL/min/1.7 3 sq meter 09/19/2024 12:00 PM [facility] Comment:eGFR calculated with 2020 CKD-EPI equation. Vegetarian diet, extremely high or low muscle mass, and may affect results. Cystatin C with Glomerular Filtration Rate is a suitable alternative for these patients. ANION GAP 10 5 - 20 mmol/L 09/19/2024 12:00 PM [facility] Blood BLOOD SPECIMEN / Unknown Collection / Unknown 09/19/2024 11:29 AM CDT 09/19/2024 11:38 AM CDT us Joesph Larios MD CHEMISTRY ORDERABLES Final Resu lt Performing Organization Address [facility]/ZIP Co de Phone Number [facility] CLIA # [id number] [address] [place] [address] * (ABNORMAL) HEMOGLOBIN A1C (06/27/2024 5:39 AM EDUCATION PROGRAM SPECIALIST) HEMOGLOBIN A1C 6.6(H) <=5.6 % 06/29/2024 9:10 AM EDUCATION PROGRAM SPECIALIST [facility] EST. AVG GLUCOSE, A1C 143 mg/dL 06/29/2024 9:10 AM [facility] Blood Collection / Unknown 06/27/2024 5:39 AM EDUCATION PROGRAM SPECIALIST 06/27/2024 6:05 AM EDUCATION PROGRAM SPECIALIST Narrative [facility] - 06/29/2024 9:10 AM EDUCATION PROGRAM SPECIALIST HGB A1C INTERPRETATION NORMAL: <5.7% PRE-DIABETES: 5.7 - 6.4% DIABETES: 6.5% OR GREATER us Joey Vo DO CHEMISTRY ORDERABLES Final R esult Performing Organization Address [facility]/ZIP Co de Phone Number [facility] CLIA # [id number] [address] [place] [address] [place], [place] [address] * (ABNORMAL) LIPID PANEL (05/02/2023 9:36 PM EDUCATION PROGRAM SPECIALIST) CHOLESTEROL 224(H) <200 mg/dL 05/03/2023 10:26 PM [facility] TRIGLYCERIDE 286(H) <150 mg/dL 05/03/2023 10:26 PM [facility] HDL 39(L) 40 - 59 mg/dL 05/03/2023 10:26 PM [facility] LDL CALCULATED 128(H) <100 mg/dL 05/03/2023 10:26 PM [facility] NON-HDL CHOLESTEROL 185(H) <130 mg/dL 05/03/2023 10:26 PM [facility] Blood Venipuncture / Unknown 05/02/2023 9:36 PM EDUCATION PROGRAM SPECIALIST 05/02/2023 9:51 PM EDUCATION PROGRAM SPECIALIST Narrative [facility] - 05/03/2023 10:26 PM [facility] TOTAL CHOLESTEROL mg/dL Desirable <200 Borderline high [...] Covarrubias MD CHEMISTRY ORDERABLES Final Resul t [facility] CLIA # [id number] [address] [place] [address] from Last 3 Months or Most Recently Relevant to Health Maintenance Insurance MEDICAID [facility] [id number] * Guarantor: SMITHA QUEEN II Account Type Relation to Patient Date of Phone Billing Address Personal/Family [address] [place] [address] RX [employer] (INTERNAL) [facility] RX [employer] Commercial RX INFOCROSSING Medicaid RX [employer] RX Member Subscriber Plan / Payer (Ef fective for All Dates) Name:mSitha Queen II, Junior Relation to Subscriber:Self Name:Smitha Queen II, Junior Payer ID:Not on file Type:RX Medicare Part D Address: [place] Advance Directives For more information, please contact: [phone] Documents on File Type Date Recorded 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
--- NOTE | 2024-12-10 11:18 | W.ED.AMS ---
HPI - Altered Mental Status General: Chief Complaint: Altered Mental Status Stated Complaint: ams Time Seen by Provider: 12/10/24 10:49 History of Present Illness: 54-year-old man with history of end-stage renal disease on dialysis, coronary artery disease, DVT with chronic anticoagulation on Eliquis, type 2 diabetes mellitus and hypertension who presents to the emergency room from dialysis by ambulance with confusion. He is alert and oriented but does seem somewhat confused at times and reports that he feels funny. EMS reports that he may have fallen earlier today and that he falls frequently. No obvious bruising or injuries. No focal motor deficits. Currently no chest pain. No abdominal pain. No nausea or vomiting. No known fevers. Related Data Home Medications ?Medication ?Instructions ?Recorded ?Confirmed diphenhydramine HCl 25 mg tablet 50 mg PO DAILY PRN Allergy Symptoms 05/02/23 12/10/24 (Benadryl Allergy) insulin lispro 100 unit/mL See Rx Instructions .Route .COMPLEX 05/02/23 12/10/24 subcutaneous pen (Humalog KwikPen (U-100) Insulin) vit B,C-folic ac 800 mcg-zinc 12.5 1 tab PO BEDTIME 10/29/23 12/10/24 mg-selen-D3 2,000 unit-vit E tablet (RenaPlex-D) tizanidine 2 mg tablet 2 mg PO BID 03/24/24 12/10/24 bumetanide 2 mg tablet 2 mg PO BID 04/15/24 12/10/24 hydroxyzine HCl 50 mg tablet 100 mg PO BEDTIME PRN insomnia 04/21/24 12/10/24 promethazine 25 mg tablet 25 mg PO Q6H PRN Nausea 04/21/24 12/10/24 acetaminophen 500 mg tablet 1,000 mg PO QID PRN Pain 06/04/24 12/10/24 (Tylenol Extra Strength) hydrocodone 5 mg-acetaminophen 325 1 tab PO Q6H 06/16/24 12/10/24 mg tablet metoprolol tartrate 25 mg tablet 12.5 mg PO BID 06/16/24 12/10/24 apixaban 2.5 mg tablet (Eliquis) 2.5 mg PO BID 12/08/24 12/10/24 fexofenadine 180 mg tablet 180 mg PO DAILY 12/08/24 12/10/24 (Allergy Relief (fexofenadine)) gabapentin 300 mg capsule 300 mg PO BID 12/08/24 12/10/24 insulin degludec 200 unit/mL (3 40 unit SUBCUT BEDTIME 12/08/24 12/10/24 mL) subcutaneous pen (Tresiba FlexTouch U-200 insulin) levothyroxine 88 mcg tablet 88 mcg PO QAM 12/08/24 12/10/24 ranolazine 1,000 mg 1,000 mg PO BID 12/08/24 12/10/24 tablet,extended release,12 hr Previous Rx's ?Medication ?Instructions ?Recorded nitroglycerin 0.4 mg sublingual 0.4 mg sublingual Q5M PRN Chest 08/27/23 tablet (Nitrostat) Pain #25 tabs fluoxetine 40 mg capsule 40 mg PO QAM #30 caps 04/20/24 trazodone 100 mg tablet 300 mg (3 x 100 mg) PO BEDTIME PRN 04/20/24 insomia #90 tabs mupirocin 2 % topical ointment 1 applic topical BID #15 grams 11/09/24 (Centany) tirzepatide 15 mg/0.5 mL See Rx Instructions .Route 11/18/24 subcutaneous pen injector .COMPLEX #2 mL (Mounjaro) clopidogrel 75 mg tablet (Plavix) 75 mg PO DAILY 30 days #30 tabs 12/09/24 Allergies Allergy/AdvReac Type Severity Reaction Status Date / Time Iodinated Contrast Media Allergy Severe ALGY-Difficulty Verified 12/10/24 10:58 Breathing iodine Allergy Severe ALGY-Difficulty Verified 12/10/24 10:58 Breathing metoclopramide (From Reglan) Allergy Severe ALGY-Difficulty Verified 12/10/24 10:58 Breathing nalbuphine (From Nubain) Allergy Severe ADR-Diarrhe Verified 12/10/24 10:58 a naproxen (From Naprosyn) Allergy Severe ADR-Vomitin Verified 12/10/24 10:58 g Sulfa (Sulfonamide Allergy Severe ALGY-Difficulty Verified 12/10/24 10:58 Antibiotics) Breathing ketorolac Allergy Intermediate ADR-Nausea Verified 12/10/24 10:58 ondansetron (From Zofran) Allergy Intermediate ADR-Abdominal Verified 12/10/24 10:58 Pain prochlorperazine (From Allergy Intermediate ADR-Irritab Verified 12/10/24 10:58 Compazine) le codeine AdvReac Severe ALGY-Anaphy Verified 12/10/24 10:58 laxis haloperidol (From Haldol) AdvReac Intermediate ADR-Irritab Verified 12/10/24 10:58 le Review of Systems Narrative: Constitutional symptoms: Negative except as documented in HPI. Skin symptoms: Negative except as documented in HPI. Eye symptoms: Negative except as documented in HPI. ENMT symptoms: Negative except as documented in HPI. Respiratory symptoms: Negative except as documented in HPI. Cardiovascular symptoms: Negative except as documented in HPI. Gastrointestinal symptoms: Negative except as documented in HPI. Genitourinary symptoms: Negative except as documented in HPI. Musculoskeletal symptoms: Negative except as documented in HPI. Neurologic symptoms: Negative except as documented in HPI. Psychiatric symptoms: Negative except as documented in HPI. Endocrine symptoms: Negative except as documented in HPI. PFSH ED PFSH: Medical History (Updated 12/10/24 @ 14:15 by Inge Ortiz MD) Atherosclerotic heart disease of [place] coronary artery with other forms of angina pectoris hx of CAD with prior stenting of proximal LAD, LCx, RCA ESRD (end stage renal disease) Hypothyroidism Generalized anxiety disorder Major depressive disorder, recurrent severe without psychotic features Pericarditis Elevated troponin Essential hypertension Essential hypertension ESRD (end stage renal disease) Hypertension Psychiatric care 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 mellitus Chronic renal failure Chest pain Chest pain CRF (chronic renal failure) Chronic right SI joint pain Chronic systolic heart failure UTI (urinary tract infection) Peripheral arterial disease PVD (peripheral vascular disease) Worsening angina Angina at rest Chest pain Uremic encephalopathy ESRD (end stage renal disease) D-dimer, elevated Acute on chronic congestive heart failure History of pulmonary embolism Diabetes Acute kidney injury superimposed on CKD GERD (gastroesophageal reflux disease) Alcohol use disorder, moderate, in sustained remission DVT (deep venous thrombosis) (~03/2020) Proximal left subclavian, basilic and brachial veins, started eliquis this stay, felt present prior to admission Chronic kidney disease -baseline Cr appears to be around 1.5 Ischemic cardiomyopathy Onychodystrophy Chronic anticoagulation Eliquis Osteoarthritis of spine Hypertension Hyperlipidemia Diabetes Depression Anemia Foot drop, left H/O acute myocardial infarction H/O deep venous thrombosis developed compartment syndrome Surgical History Peritoneal dialysis catheter in situ (06/15/21) History of appendectomy 1995 History of excision of mass 06/08/2019: Subcutaneous mass on back History of removal of Port-a-Cath Port-A-Cath in place H/O vasectomy Hx of cholecystectomy History of coronary artery stent placement 5x H/O skin graft History of inguinal hernia repair, bilateral 2000 H/O removal of testicle left H/O colonoscopy (11/14/20) 08/2015 H/O esophagogastroduodenoscopy (11/14/20) 08/2015 Family History Grandfather Cancer skin cancer Parkinson disease Brother Hypertension Father Heart disease Mother Hypertension Stroke Aneurysm Grandmother Aneurysm Other Crohn's disease Denies family history of Anesthesia complication Bleeding disorder Social History Smoking and tobacco/nicotine status: never used tobacco/nicotine Second hand smoke exposure: No Alcohol intake: former Year of sobriety/quit date alcohol: 2015 Former alcohol use details: Only holidays - last use 05.19.2015 Substance/Drug Use: never Adopted: No Caregiver/support person: No Lives independently: Yes Household members: spouse Housing: Apartment Marital status: Number of children: 2 Number of grandchildren: 0 Highest education level completed: High School Graduate service: No Current occupational status: disabled Pets and animals: Yes Pets & animals: dog(s) Leisure activites: games and other Leisure activities details: watching TV Sexually active: Yes Do you think of yourself as: Straight/Heterosexual Current gender identity: Male Shannon/Baptist: Hinduism Special shannon needs: No Agree to transfusion: Yes Physical Exam Narrative: General: Alert, no acute distress. Skin: Warm, dry. Head: Normocephalic, atraumatic. Neck: Supple, trachea midline. Eye: Extraocular movements are intact. Ears, nose, mouth and throat: mucosa moist. Cardiovascular: Regular, Normal peripheral perfusion. Respiratory: Lungs are clear to auscultation, respirations are non-labored, breath sounds are equal, Symmetrical chest wall expansion. Gastrointestinal: Soft, Nontender, Non distended Musculoskeletal: Normal ROM, no deformity. Neurological: Alert and oriented, No focal neurological deficit observed. Psychiatric: Cooperative, a bit of an odd affect. Course Vital Signs: Vital signs: Vital Signs Temperature 99.7 F H 12/10/24 10:49 Pulse Rate 86 12/10/24 14:20 Respiratory Rate 20 H 12/10/24 14:20 Blood Pressure 112/25 12/10/24 13:30 Pulse Oximetry 90 12/10/24 14:20 Oxygen Delivery Me thod Room Air 12/10/24 10:49 MDM - Altered Mental Status Medical Decision Making Medical decision making: Differential diagnosis including but not limited to and based on the above HPI, review of systems and physical exam: In this patient with altered mental status: Stroke. Hypoglycemia. Metabolic encephalopathy. Infections such as pneumonia, urinary tract infection, Covid-19, Influenza. Electrolyte abnormalities such as hypernatremia. Renal failure / uremia. Hepatic encephalopathy. Hypoxemia. Hypercapnic respiratory failure. Psychosis. Drug or alcohol intoxication. Medication overdose. Orders placed to evaluate differential diagnosis based on the above differential, HPI and physical exam Chest x-ray: Pacemaker in place in the right chest wall, sternotomy wires, left-sided port. No obvious acute infiltrates. This was reviewed and interpreted by myself the emergency room physician. I also reviewed the radiology report. EKG: Time 1114. Rate 88. Normal sinus rhythm, nonspecific ST changes, no ectopy, normal MO & QRS intervals, This was reviewed and interpreted by myself the ER physician at 1118 CT head: No acute intracranial process. no intracranial hemorrhage, no evidence of infarct. no evidence of acute fracture.This was reviewed and interpreted by myself the ER physician. Chest x-ray: No acute process. No infiltrate. No pneumothorax. This was reviewed and interpreted by myself the emergency room physician. I also reviewed the radiology report. Lab Review: Laboratory results were reviewed and interpreted by myself the emergency room physician. No leukocytosis. No anemia. BUN and creatinine are 19 and 2.6 which be expected in this dialysis patient. Potassium is normal at 4.2. No urinary tract infection. I reviewed the patient's medical record. Reexamination: Patient remained stable. No increased work of breathing. No altered mental status. No focal motor deficits. He appears a bit more alert. Says he has not been sleeping fantastically. He might have been a little bit foggy secondary to this Assessment and plan: Altered mental status End-stage renal disease on dialysis - Discharged home - Discussed plan with patient. Answered any questions. - Evaluation and treatment of this problem were appropriate in the emergency setting. Lab Data 12/10/24 11:39 12/10/24 11:39 Radiology Impressions Chest X-Ray 12/10/24 10:53 Impression: No change from yesterday. Head CT 12/10/24 10:53 IMPRESSION: 1. No acute intracranial hemorrhage or edema. 2. No prior infarct. 3. Extensive atherosclerotic calcification in the distal vertebral and intracranial carotid arteries. Laboratory Results WBC 8.94 10^3/uL (3.29-11.43) 12/10/24 11:39 RBC 3.59 10^6/uL (3.85-5.65) L 12/10/24 11:39 Hgb 11.70 g/dL (11.27-16.99) 12/10/24 11:39 Hct 34.3 % (37-53) L 12/10/24 11:39 MCV 95.5 fl (82-101) 12/10/24 11:39 MCH 32.6 pg (27-33) 12/10/24 11:39 MCHC 34.1 g/dL (30-55) 12/10/24 11:39 RDW 13.5 % (12.1-15.1) 12/10/24 11:39 Plt Count 178 10^3/cmm (157-399) 12/10/24 11:39 MPV 9.8 fL (7.4-10.4) 12/10/24 11:39 Neut % (Auto) 83.8 % 12/10/24 11:39 Lymph % (Auto) 7.3 % 12/10/24 11:39 Cooper % (Auto) 6.5 % 12/10/24 11:39 Eos % (Auto) 1.6 % 12/10/24 11:39 Baso % (Auto) 0.4 % 12/10/24 11:39 Neut # (Auto) 7.49 10^3/uL (1.8-7.7) 12/10/24 11:39 Lymph # (Auto) 0.7 10^3/uL (0.8-4.8) L 12/10/24 11:39 Cooper # (Auto) 0.6 10^3/uL (0.2-0.9) 12/10/24 11:39 Eos # (Auto) 0.1 10^3/uL (0.0-0.8) 12/10/24 11:39 Baso # (Auto) 0.0 10^3/uL (0.0-0.1) 12/10/24 11:39 Nucleated RBC % (auto) 0 % 12/10/24 11:39 Nucleated RBCs # 0.0 /100WBC 12/10/24 11:39 Sodium 135 mmol/L (136-145) L 12/10/24 11:39 Potassium 4.2 mmol/L (3.5-5.1) 12/10/24 11:39 Chloride 96 mmol/L (98-107) L 12/10/24 11:39 Carbon Dioxide 28 mmol/L (22-29) 12/10/24 11:39 Anion Gap 15.2 (5-19) 12/10/24 11:39 BUN 19 mg/dL (6-20) 12/10/24 11:39 Creatinine 2.6 mg/dL (0.7-1.2) H 12/10/24 11:39 GFR Calculation 25.7 mL/min (90-130) L 12/10/24 11:39 Glucose 136 mg/dL (65-115) H 12/10/24 11:39 Calculated Osmolality 284 mOsm/kg (285-295) L 12/10/24 11:39 Lactic Acid 0.7 mmol/L (0.5-2.2) 12/10/24 11:39 Calcium 8.6 mg/dL (8.5-10.5) 12/10/24 11:39 Total Bilirubin 0.6 mg/dL (0.15-1.2) 12/10/24 11:39 AST 14 U/L (0-40) 12/10/24 11:39 ALT 9 U/L (0-41) 12/10/24 11:39 Alkaline Phosphatase 120 U/L (40-130) 12/10/24 11:39 Total Protein 6.2 g/dL (6.6-8.7) L 12/10/24 11:39 Albumin 3.4 g/dL (3.5-5.2) L 12/10/24 11:39 Globulin 2.8 g/dL (1.3-4.6) 12/10/24 11:39 Urine Color Dark yellow (Yellow) A 12/10/24 13:04 Urine Appearance Clear (CLEAR) 12/10/24 13:04 Urine pH 5.0 (5-7) 12/10/24 13:04 Ur Specific [place] 1.020 (1.005-1.030) 12/10/24 13:04 Urine Protein 2+ (Negative) A 12/10/24 13:04 Urine Glucose (UA) Negative (Normal) 12/10/24 13:04 Urine Ketones Trace (Negative) 12/10/24 13:04 Urine Blood Negative (Negative) 12/10/24 13:04 Urine Nitrate Negative (Negative) 12/10/24 13:04 Urine Bilirubin 1+ (Negative) H 12/10/24 13:04 Urine Urobilinogen 1.0 mg/dL (Negative) 12/10/24 13:04 Ur Leukocyte Esterase 1+ (Negative) A 12/10/24 13:04 Urine RBC 0-2 /hpf (0-2) 12/10/24 13:04 Urine WBC 0-5 /hpf (0-5) 12/10/24 13:04 Ur Squamous Epith Cells 0-5 /hpf (0-5) 12/10/24 13:04 Amorphous Sediment 1+ /hpf 12/10/24 13:04 Urine Bacteria None seen /hpf (NONE) 12/10/24 13:04 Hyaline Casts 23.98 /lpf 12/10/24 13:04 Urine Opiates Screen Positive ng/mL (Negative) H 12/10/24 13:04 Ur Barbiturates Screen Negative ng/mL (Negative) 12/10/24 13:04 Ur Phencyclidine Scrn Negative ng/mL (Negative) 12/10/24 13:04 Ur Amphetamines Screen Negative ng/mL (Negative) 12/10/24 13:04 U Benzodiazepines Scrn Negative ng/mL (Negative) 12/10/24 13:04 Urine Cocaine Screen Negative ng/mL (Negative) 12/10/24 13:04 U Marijuana (THC) Screen Negative ng/mL (Negative) 12/10/24 13:04 Ethyl Alcohol < 10 mg/dL (0-10) 12/10/24 11:39 All radiology interpretation(s) finalized by discharge Discharge Plan Discharge Patient Disposition: Home Clinical Impression: Altered mental status Condition: Stable Prescriptions: No Action trazodone 100 mg tablet 300 mg PO BEDTIME PRN (Reason: insomia ) Qty: 90 11RF fluoxetine 40 mg capsule 40 mg PO QAM Qty: 30 11RF mupirocin [Centany] 2 % ointment 1 applic topical BID Qty: 15 2RF nitroglycerin [Nitrostat] 0.4 mg tablet, sublingual 0.4 mg SUBLINGUAL Q5M PRN (Reason: Chest Pain) Qty: 25 2RF Rx Instructions: do not exceed 3 doses per episode Mounjaro 15 mg/0.5 mL pen injector See Rx Instructions .ROUTE .COMPLEX Qty: 2 2RF Dose Instruction: inject 15mg (0.5ml) SUBCUTANEOUSLY EVERY 7 DAYS Rx Instructions: inject 15mg (0.5ml) SUBCUTANEOUSLY EVERY 7 DAYS ON SATURDAY. tizanidine 2 mg tablet 2 mg PO BID promethazine 25 mg tablet 25 mg PO Q6H PRN (Reason: Nausea) hydroxyzine HCl 50 mg tablet 100 mg PO BEDTIME PRN (Reason: insomnia) diphenhydramine HCl [Benadryl Allergy] 25 mg Tablet 50 mg PO DAILY PRN (Reason: Allergy Symptoms) insulin lispro [Humalog KwikPen Insulin] 100 unit/mL insulin pen See Rx Instructions .ROUTE .COMPLEX Rx Instructions: Sliding scale subcutaneously twice a day as needed. RenaPlex-D 800 mcg-12.5 mg -2,000 unit tablet 1 tab PO BEDTIME bumetanide 2 mg tablet 2 mg PO BID acetaminophen [Tylenol Extra Strength] 500 mg Tablet 1,000 mg PO QID PRN (Reason: Pain) hydrocodone-acetaminophen 5-325 mg tablet 1 tab PO Q6H metoprolol tartrate 25 mg tablet 12.5 mg PO BID fexofenadine [Allergy Relief (fexofenadine)] 180 mg tablet 180 mg PO DAILY levothyroxine 88 mcg tablet 88 mcg PO QAM gabapentin 300 mg capsule 300 mg PO BID Eliquis 2.5 mg tablet 2.5 mg PO BID insulin degludec [Tresiba FlexTouch U-200] 200 unit/mL (3 mL) insulin pen 40 unit SUBCUT BEDTIME ranolazine 1,000 mg tablet extended release 12 hr 1,000 mg PO BID clopidogrel [Plavix] 75 mg tablet 75 mg PO DAILY 30 Days Qty: 30 0RF Discharge Orders: Discharge ED (Routine); Ordered 12/10/24 Ordered By: Inge Ortiz Referrals: Dez Evans MD [Primary Care Provider, Family Practice] Discharge Diet: Usual diet Discharge Activity: Increase activity as tolerated Patient Instructions: Altered Mental Status (ED), Opioid Safety, Pain Management, Patient Portal & Sunny Instructions Activity Restrictions/Additional Instructions: Thank you for choosing [facility] for your healthcare needs today. You have been screened and evaluated and felt safe for discharge. Health conditions do change or evolve sometimes and as such it is important that you follow up with your Primary Doctor to be re checked, 3-5 days is a general good time frame for follow up. You are always welcome to return to the ED for re assessment if your symptoms are worsening or you have new concerns Print Language: Malawian Coding Level of Care Code ED Information Services Consultant for Aaron Irene
[2024-12-10 12:15] LABS: Hematocrit 34.3 % (37-53); Hemoglobin 11.70 g/dL (11.27-16.99); Mean Corpuscular HGB Conc 34.1 g/dL (30-55); Mean Corpuscular Hemoglobin 32.6 pg (27-33); Mean Corpuscular Volume 95.5 fl (82-101); Nucleated Red Blood Cells % 0 %; Platelet Count 178 10^3/cmm (157-399); Red Blood Count 3.59 10^6/uL (3.85-5.65); White Blood Count 8.94 10^3/uL (3.29-11.43)
[2024-12-10 12:36] LABS: Alanine Aminotransferase 9 U/L (0-41); Albumin Level 3.4 g/dL (3.5-5.2); Alkaline Phosphatase 120 U/L (40-130); Anion Gap 15.2 (5-19); Aspartate Amino Transferase 14 U/L (0-40); Blood Urea Nitrogen 19 mg/dL (6-20); Calcium 8.6 mg/dL (8.5-10.5); Carbon Dioxide 28 mmol/L (22-29); Chloride 96 mmol/L (98-107); Globulin 2.8 g/dL (1.3-4.6); Glucose 136 mg/dL (65-115); Lactic Sepsis W/Reflex 0.7 mmol/L (0.5-2.2); Osmolality Calculated 284 mOsm/kg (285-295); Potassium 4.2 mmol/L (3.5-5.1); Sodium 135 mmol/L (136-145); Total Protein 6.2 g/dL (6.6-8.7)
[2024-12-10 12:41] LABS: Alcohol Level < 10 mg/dL (0-10)
[2024-12-10 13:13] LABS: Glucose Urine UA Negative (Normal); Nitrate Urine Negative (Negative); Specific Gravity, Urine 1.020 (1.005-1.030)
[2024-12-10 13:20] LABS: PCP Screen Urine Negative (Negative)
[2024-12-10 14:05] LABS: UA Slide Review UA Slide Review Perf
== END 2024-12-10 14:57 | disposition home or self-care (01) ==
PROVIDERS: Emergency Provider Emergency Medicine; PCP Family Medicine
DX: R41.82 Altered mental status, unspecified (principal); Z79.4 Long term (current) use of insulin; Z79.01 Long term (current) use of anticoagulants; Z79.02 Long term (current) use of antithrombotics/antiplatelets; E78.5 Hyperlipidemia, unspecified; I25.118 Atherosclerotic heart disease of native coronary artery with other forms of angina pectoris; E11.22 Type 2 diabetes mellitus with diabetic chronic kidney disease; I12.0 Hypertensive chronic kidney disease with stage 5 chronic kidney disease or end stage renal disease; N18.6 End stage renal disease
CPT/HCPCS: 36415; 70450; 71045; 80053; 80306; 80307; 81001; 83605; 85025; 87040; 93005; 99285

== ENCOUNTER 2024-12-11 10:52 | Emergency (ER) | payer MEDICARE, SELFPAY ==
[2024-03-20 13:31] VITALS: BP 125/53; BMI 35.0
[2024-12-11 10:58] VITALS: BP 147/62; PULSE 84; RESP 16; TEMP 36.8; O2SAT 96
--- OUTSIDE RECORDS SUMMARY | 2024-12-11 11:01 | XMS_ITS | Encounter Summary ---
Author Organization [facility], [facility] Address [address] [place] [address] Phone Care Team Providers Care Field Artillery Basic Name Role Phone MontanezKp kevin Primary Care Provider [phone] Encounter Details Date Type Department Care Team (Late st Contact Info) Description 07/14/2024 TCM in D[facility], [facility] [address] [place] [address] Ayad Monahan, SECURITIES DEALER [address] [place] [address] Social History Tobacco Use Types [...] 07/14/2024 The patient was seen for a [id number]-ht-izbv visit as part of Transitional Care Management services. Attending Railroad Car Loader: RITA MENENDEZ Dialysis Location: [facility] Schedule: Shift: 1 HOSPITALIZATION SUMMARY Patient [...] 97.8*F Current Dialysis Vitals BP Sit: 140/78 AP/SENIOR FIREWALL ENGINEER: -- Pulse: 79 CARE COORDINATION Post-discharge follow-up appointments reviewed with the patient. COMMENTS: following Cardiology EDUCATION Education relevant to the discharge diagnosis provided to the patient or caregiver VISIT DIAGNOSES CPT Code 08950 - High complexity, seen 8-14 days post discharge or moderate complexity, seen [id number] days of discharge. R07.9 Chest pain, unspecified N18.6, Z99.2 End stage renal disease;Dependence on renal dialysis Signed by: AYAD MONAHAN NP on 07/14/2024 at 01:27:20 PM Transcribed by: AYAD MONAHAN NP on 07/14/2024 at 01:27:20 PM documented in this encounter Plan of Treatment Not on file documented as of this encounter Visit Diagnoses Not on filedocumented in this encounter Care Teams Field Artillery Basic Relationship Specialty Start Date End Date Kp Montanez DO [address] [place] [address] PCP - General Internal Medicine 01/07/23 documented as of this encounter
--- OUTSIDE RECORDS SUMMARY | 2024-12-11 11:01 | XMS_ITS | Clinical Summary ---
Author Organization [facility] Address [address] [place] [id number] Care Team Providers Care Cement Patcher Name Role Phone Kp Montanez Primary Care [...] for Pain. 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 Active metFORMIN (GLUCOPHAGE) 500 mg tablet Take 500 mg by mouth 2 times daily with meals. Active isosorbide mononitrate (IMDUR) 30 mg Extended Release 24 hour tablet Take 1 Tablet (30 mg) by mouth daily employment director. 30 Tablet 9 Active metoprolol tartrate (LOPRESSOR) [...] Overview (08/18/2012): secondary to fasciotomy Atherosclerosis of [place] co ronary artery of [place] heart with stable angina pectoris 08/18/2012 DM (diabetes mellitus), type 2, uncontrolled 05/2012 Hypothyroidism 08/18/2012 Benign hypertension CKD (chronic kidney disease) stage 2, GFR 60-89 ml/min Resolved Problems Problem Noted Date Diagnosed Date Resolved Date Acute chest pain 09/06/2018 10/27/2018 Elevated troponin 09/06/2018 10/27/2018 Grade I diastolic dysfunction 07/06/2018 10/27/2018 Chest pain 04/04/2018 07/06/2018 CAD in [place] artery 07/02/2013 019 CHF (congestive heart failure) [...] history exists Medical Devices Implanted Type Area Medical Office Assistant Device Identifier Shelf Expiration Date Model / Serial / Lot Port-06/04/2018 Implanted:2018 (Quantity not on file) Port Procedures Procedure Name Priority Date/Time Associated Diagnosis Comments LIPID PANEL Routine 01/25/2019 2:00 AM CDT HEMOGLOBIN A1C Routine 05/03/2014 9:04 AM DEMOLITION EXPERT DM (diabetes mellitus), type 2, uncontrolled HTN (hypertension), benign from Last 3 Months or Most Recently Relevant to Health Maintenance Results * (ABNORMAL) LIPID PANEL (01/25/2019 2:00 AM CDT) CHOLESTEROL 133 <200 mg/dL 01/25/2019 2:42 AM CDT [facility] TRIGLYCERIDE 177(H) <150 mg/dL 01/25/2019 2:42 AM CDT [facility] HDL 33(L) 40 - 59 mg/dL 01/25/2019 2:42 AM CDT [facility] LDL CALCULATED 65 <100 mg/dL 01/25/2019 2:42 AM CDT [facility] NON-HDL CHOLESTEROL 100 <130 mg/dL 01/25/2019 2:42 AM CDT [facility] Blood Venipuncture / Unknown 01/25/2019 2:00 AM CDT 01/25/2019 2:15 AM CDT Narrative [facility] - 01/25/2019 2:42 AM CDT [...] John Teixeira MD CHEMISTRY ORDERABLES Final Result [facility] CLIA# [id number] [address] [place] [address] * (ABNORMAL) HEMOGLOBIN A1C (05/03/2014 9:04 AM DEMOLITION EXPERT) HEMOGLOBIN A1C 9.0(H) 4.0 - 6.0 % [facility] Comment: This test was performed on a [employer] VARIANT II instrument using HPLC methodology. Blood specimen (specimen) 05/03/2014 9:04 AM DEMOLITION EXPERT 05/03/2014 9:05 AM DEMOLITION EXPERT us Nicolasa Acosta LITHOGRAPHIC CAMERA OPERATOR CHEMISTRY ORDERABLES Final R esult INTERFACE SYSTEM Refer to clinic/hospital department [facility] CLIA# [id number] [address] [place] [address] from Last 3 Months or Most Recently Relevant to Health Maintenance Insurance [place] [address] [address] DUAL COMPLETE [facility] PPO D-SNP RX [employer] PLANS (INTERNAL) [facility] Plans RX [employer] RX Member Subscriber Plan / Payer (Ef fective for All Dates) Name:Rei Queen II Relation to Subscriber:Self Name:Rei Queen II Payer ID:Not on file Group ID:[id number] Type:RX Medicare Part D Address: [address] Advance Directives For more information, please contact: [phone] * Full Code (Latest Code Status on [...] 9:34 PM 04/10/2018 3:22 PM Care Teams Cement Patcher Relationship Specialty Start Date End Date Kp Montanez DO [address] [address] PCP - General Internal Medicine 04/04/18
--- OUTSIDE RECORDS SUMMARY | 2024-12-11 11:01 | XMS_ITS | Encounter Summary ---
Author Organization [facility], [facility] Address [address] [place] [address] Phone Care Team Providers Care Mold Repair Technician Name Role Phone Kp Montanez Primary Care Provider [phone] Encounter Details Date Type Department Care Team (Late st Contact Info) Description 12/24/2018 Orders Only [email or web address] [address] [place] [address] Antolin Weiss MD [address] [place] [address] Chronic kidney disease stage 3; [...] Mckeon MA - 12/17/2018 2:15 PM CDT [facility] [address] [place] [address] us Antolin Weiss MD LAB BLOOD ORDERABLES Fi nal Result * PTH, intact (CKD3a) (12/17/2018 1:55 PM CDT) Parathyroid Hormone, Intact 119.3 pg/mL Blood specimen (specimen) 12/17/2018 1:55 PM CDT Leslie Mckeon MA - 12/17/2018 2:15 PM CDT [facility] [address] [place] [address] us Antolin Weiss MD LAB BLOOD ORDERABLES Fi nal Result * (ABNORMAL) Urine albumin / creatinine ratio (12/17/2018 1:55 PM CDT) Pathologist [facility] Urine Microalbumin 28 mg/dL Creatinine, Urine Random 76.2 mg/dL Microalb/Creat Ratio 367(A) 30 - 300 mg/g Creat Urine specimen (specimen) 12/17/2018 1:55 PM CDT Antolin Weiss MD LAB URINE ORDERABLES Fi nal Result * CBC (CKD3a) (12/17/2018 1:55 PM CDT) Pathologist [facility] WBC 8.8 K/uL Red Blood Cell Count [...] Benson MA - 12/17/2018 2:15 PM CDT [facility] [address] [place] [address] Antolin Weiss MD LAB BLOOD ORDERABLES Fi nal Result * (ABNORMAL) RFP (CKD3a) (12/17/2018 1:55 PM CDT) Pathologist [facility] Albumin 4.2 3.5 - 5.0 g/dL BUN [...] Mckeon MA - 12/17/2018 2:15 PM CDT [facility] [address] [place] [address] us Antolin Weiss MD LAB BLOOD ORDERABLES Fi nal Result documented in this encounter Visit Diagnoses Diagnosis Chronic kidney disease stage 3 (HCC) Type 2 diabetes mellitus with diabetic chronic kidney disease (HCC) documented in this encounter Care Teams Mold Repair Technician Relationship Specialty Start Date End Date Kp Montanez DO [address] [place] [address] PCP - General Internal Medicine 01/07/23 documented as of this encounter
--- OUTSIDE RECORDS SUMMARY | 2024-12-11 11:01 | XMS_ITS | Encounter Summary ---
Author Organization [facility] Address [address] [place] [address] Care Team Providers Care Rn Document Improvement Name Role Phone Dez Evans MD Primary Care Provider [phone] Reason for Visit * Reason Onset Date Comments Appointment Notification 09/24/2024 Encounter Details Date Type Department Care Team (Late st Contact Info) Description 09/24/2024 Telephone [facility] [address] [place] [address] Marla Rodriges FNP [address] [facility] [address] [place] [address] Appointment Notification Social History Tobacco Use Types Packs/Day Years Used Date Smoking Tobacco: Never Smokeless Tobacco: Never Alcohol Use Standard Drinks/Week Comments Not Currently 0 (1 standard drink = 0.6 oz pur e alcohol) rarely drinks since 2013 Sex and Gender Information Value Date Recorded Sex Assigned at Not on file Legal Sex Male 2:43 AM DISK OPERATOR Gender Identity Not on file Sexual Orientation Not on file Occupation Industry Job Start Date Job End Date Not on file Not on file Not on file Not on file documented as of this encounter Miscellaneous Notes * Telephone Encounter - Carmen Sargent - 09/24/2024 10:35 AM CDT Provider: Antelmo MESSAGE Pt has an appt on 09/29/24 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 Carmen Sargent, [facility] Cardiology [facility], [facility] documented in this encounter Plan of Treatment Upcoming Encounters Date Type Department Care Team (Late st Contact Info) Description 02/12/2025 3:30 PM CDT Office Visit [facility] [address] [place] [address] Shannan Goodwin MD [address] [place] [address] documented as of this encounter Visit Diagnoses Not on filedocumented in this encounter Additional Health Concerns Assessment Noted Time PHQ-9 Depression Total Score: 1 06/29/19 2:57 AM DISK OPERATOR documented as of this encounter Care Teams Rn Document Improvement Relationship Specialty Start Date End Date Dez Evans MD [address] [place] [address] PCP - General Family Practice 06/18/24 documented as of this encounter
--- OUTSIDE RECORDS SUMMARY | 2024-12-11 11:01 | XMS_ITS ---
Author Name [facility], [facility] Address [address] [place] [address] Phone [phone] Organization [facility] e, NA DOCUMENT DISCLAIMER Multiple document versions may exist, please be sure you review the latest version. The information in the [facility] Continuity of Care Document represents a summary of certain health and medical information. It may not contain the complete medical history for the patient and should be independently verified. The represented time in the document is Eastern Time. 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 .21 Active January 14, 2024 End stage renal disease N18.6 Active November 26, 2023 Unstable angina I20.0 Active October 27 4 Chest pain, unspecified R07.9 Active October 28, 2023 Unstable angina I20.0 Active October 10, 2023 Altered mental status, unspecified R41.82 Active February 12, 2023 Unspecified protein-calorie malnutrition E46 Active June 11, 2022 Allergy, unspecified, subsequent encounter T78.40XD Active June 01, 2022 Nausea R11.0 Active June 01 3 Cramp and spasm R25.2 Active June 01, 2022 Shortness of breath R06.02 Active June 01, 2022 Hypotension of hemodialysis I95.3 Active June 01, 2022 Chest pain, unspecified R07.9 Active Alistair alida2022 Fever, unspecified R50.9 Active May 202022 Pain, unspecified R52 Active May Depression, unspecified F32.A Active Alistair hailey 2022 Essential (primary) hypertension I10 Active June 01, [...] diastolic (congestive) heart failure I50.42 Active Joselito forman 2022 Type 2 diabetes mellitus wit h diabetic neuropathy, unspecified E11.40 Active June 01, 2022 Ischemic cardiomyopathy I25.5 Active Alistair alida 2022 Old myocardial infarction I25.2 Active Luigi baez 2022 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 F December 10, 2024 07 :50 AM Weight Vital Sign Value Date / Time Estimated Dry Weight 89.5 kg December 01 11:59 PM Pre-Dialysis 88.60 kg December 10, 2024 07 :50 AM Post-Dialysis 88.60 kg December 10, 2024 07 :50 AM Other Other Value Date / Time Height 165 cm September 14, 2022 1 2:00 AM Body Mass Index 32.87 kg/m2 December 10, 2024 12 :55 PM LAB RESULTS Hematology Result Type Result Value [...] 11.5 - 14.5 % High September 29 5 Platelets 254 1000/mcL 130 - 400 1000/mcL [...] mcg/dL 185 - 515 mcg/dL - October 22 , 2024 Transferrin Sat. (Calc) 21 % 20 - 55 % - October 22, 2024 Lymphocytes 30.5 % 19.0 - 48.0 % - October 22, 2 025 Neutrophils 57.5 % 40.0 - 75.0 % - October 22, 2 025 Monocytes 6.0 % 3.0 - 10.0 % - October 22 5 Basophils 0.8 % 0.0 - 1.5 % - October 22, 2024 Eosinophil 2.9 % 0.0 - 7.0 % - October 22, 2024 WBC (No Diff) 5.06 1000/mcL 4.80 - 10.80 1000/mcL - October 22, 2024 MICHAEL 2.3 % 0.0 - 4.0 % - October 22, 2024 MCH 32.9 pg 27.0 - 31.0 pg High October 22, 025 RDW 15.3 % 11.5 - 14.5 % [...] 11.5 - 14.5 % High November 19 25 MCHC 32.6 g/dL 30.0 - 36.0 g/dL [...] ge Provided - October 22, 2024 eKt/V ([facility] 1.45 No Reference Range Provided - October [...] (Calculated) 49 mg/dL 10 - 30 mg/dL [facility] 2024 HDL 34 mg/dL No Reference [...] Setting (mEq/L) 34 mEq/L Dialysis Access Hemodialysis-AV Admire t-Biological - Bovine, Left Upper Arm, Brachial [...] Dialysate Dialyzer Dialysis Access Meds Admin December 03, 2024 Weight 89.20 kg Weight 89.60 kg 03:37:00 430 3.0 K, 2.5 Ca, 1.0 Mg, 100 Dextrose (N3251) 180nre Optifl ux Blood Pressure-sitting 127/80 mmHg Blood Pressure-sit ting [...] 97.2 deg. F Temperature 97.5 deg. F December 10, 2024 Weight 88.60 kg Weight 88.60 kg - 460 3.0 K, 2.5 Ca, 1.0 Mg, 100 Dextrose (N3251) 180nre Optiflux Hemodialysis-AV Graft-Biological - Bovine, Left Upper Arm, Brachial Artery to Cephalic Vein Access Placed on September 28, 2022 Heparin Sodium (Porcine) 1,000 Units/mL Systemic; 4000units,Intravenous - push Blood Pressure-sitting 112/54 mmHg Blood Pressure-sit ting 138/55 mmHg Heart Rate 92 beats per minute Heart Rate 84 beats per minute Respiratory Rate 18 breaths per minute Respiratory Rate 16 breaths per minute Temperature 97.9 deg. F Temperature 97.4 deg. F
--- OUTSIDE RECORDS SUMMARY | 2024-12-11 11:01 | XMS_ITS | Encounter Summary ---
Author Organization [facility], [facility] Address [address] [place] [address] Phone Care Team Providers Care Clam Bed Worker Name Role Phone Kp Montanez DO Primary Care Provider [phone] Encounter Details Date Type Department Care Team (Late st Contact Info) Description 12/03/2024 Orders Only [facility] [address] [place] [address] Yesi Madison MD [address] [place] [address] Social History Tobacco Use Types [...] 12/04/2024 Unless otherwise specified, test(s) performed at: [facility], [address] [place] [address] PROPERTY UNDERWRITER: Jose Martin Mariscal M.D. For any questions, please call customer service at FREQUENCY:OTHER Resulting Agency Comment Specimen source: Blood us Yesi Madison MD LAB BLOOD ORDERABLES Final Re sult [employer] See order comments or contact performing lab Unknown, [place] documented in this encounter Visit Diagnoses Not on filedocumented in this encounter Care Teams Clam Bed Worker Relationship Specialty Start Date End Date Kp Montanez DO [address] [place] [address] PCP - General Internal Medicine 01/07/23 documented as of this encounter
--- OUTSIDE RECORDS SUMMARY | 2024-12-11 11:01 | XMS_ITS | Patient Health Record ---
Author Organization [facility] Address [address] [place] [address] Care Team Providers Care Satellite Technician Name Role Phone Cristina RITTER, Dez Primary Care Provider UnavailElizabeth Jon Unavailable [phone] Pee Castaneda MD Unavailable Unavailable Ray Sherman Unavailable [phone] Shelley Llanes Unavailable [phone] Migration, Provider Unavailable Unavailable Ajit Silver Unavailable [phone] Allergies Allergen (clinical drug ingredient) Drug/Non Drug [...] Notes/Report: Urine Confirmation Panel (in strument) - [id number] Reviewed date:11/10/2024 02:00:57 PM Interpretation: Performing Lab: [...] the U.S. Food and Drug Administration. Gabapentin >90663 <225 ng/mL > This test was developed [...] Administration. Urine Drug Screen (cup read) - 67870 Reviewed date:11/05/2024 02:20:09 PM Interpretation: Performing Lab: Notes/Report: BUP + OPI + OXY + Urine Confirmation Panel (in strument) - [id number] Reviewed date:09/01/2024 08:59:18 AM Interpretation: Performing Lab: [...] Provider Speciality Family Med icine Referred Organization [facility] Referred Provider Ray Sherman Referred Address [address] [facility] [place],[address] Referred Provider Specialty Gastroentero logy General Notes Taisha Godoy 09/22 04:14:39 PM >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 Referral Priority Routine Reason chronic back pain gr eater than three months duration Diagnosis 1 Other chronic pain ( G89.29) Referring Provider First Name Kp Referring Provider Last Name Lisseth Referring Provider Speciality Internal M edicine Referred Organization [facility] Referred Provider Eran Block Referred Address [address] [facility],[address],[place] Referred Provider Specialty Pain Medicin e General [...] W/U Status Risk Notes Problem Chronic pain (28909627) Other chronic pain (G89.29) Active confirmed Problem Chronic pain syndrome (657421729) Chronic pain syndrome (G89.4) Active confirmed Problem Cervical radiculopathy (77499095) Cervical radiculopathy (M54.12) Active confirmed Problem Lumbar radiculopathy (261773451) Lumbar radiculopathy (M54.16) Active confirmed Problem Long-term current use of drug therapy (447326693) Long-term use of high-risk medication (Z79.899) Active confirmed Problem Abnormal gait (72753057) Abnormality of gait and mobility (R26.9) Active confirmed Problem Atherosclerotic heart disease of [place] coronary artery without angina pectoris (067005310565704 ) Atherosclerotic heart disease of [place] coronary artery without angina pectoris (I25.10) Active confirmed [id number] ed Description:Patricia nary arteriosclerosis Problem Presence of coronary angioplasty implant and graft (Z95.5) Active confirmed [id number] om ed Description:Hist ory of placement of stent for coronary artery disease Problem Essential hypertension (99922414) Essential primary hypertension (I10) Active confirmed [id number] ed Description:Holger gn essential hypertension Vital Signs Heart Rate 82 /min 02/19/2024 Temperature 97.5 degrees Fahrenheit 02/19/2024 Respiratory Rate 18 /min 02/19/2024 Height-cm 165.1 cm 11/05/2024 Oximetry 93 % 02/19/2024 Weight-kg 90.72 kg 11/05/2024 Height 65 in 11/05/2024 Weight 200 lbs 11/05/2024 BMI 33.28 kg/m2 11/05/2024 Encounters Encounter Location Date Provider Diagnosis [facility] [address] [address] 02/19/2024 Shelley Llanes Rectal bleeding K62. 5 [facility] [address] [address] 06/24/2024 Ajit Silver Chronic pain syndrom e G89.4 ; Lumbar radiculopathy M54.16 ; Atherosclerotic heart disease of [place] coronary artery without angina pectoris I25.10 ; Abnormality of gait and mobility R26.9 and Long-term use of high-risk medication Z79.899 [facility] [address] [address] 07/15/2024 Ajit Silver Chronic pain syndrom e G89.4 ; Lumbar radiculopathy M54.16 ; Atherosclerotic heart disease of [place] coronary artery without angina pectoris I25.10 and Long-term use of high-risk medication Z79.899 [facility] [address] [address] 09/02/2024 Ajit Silver Chronic pain syndrom e G89.4 ; Lumbar radiculopathy M54.16 ; Atherosclerotic heart disease of [place] coronary artery without angina pectoris I25.10 and Long-term use of high-risk medication Z79.899 [facility] [address] [address] 11/05/2024 Elizabeth Canales Chronic pain syndrom e G89.4 ; Cervical radiculopathy M54.12 ; Lumbar radiculopathy M54.16 ; Atherosclerotic heart disease of [place] coronary artery without angina pectoris I25.10 and Long-term use of high-risk medication Z79.899 [facility] 0 03/14/2024 Provider Migration [facility] 0 03/15/2024 Provider Migration [facility] [address] [address] 01/16/2024 Shelley Llanes [facility] [address] [address] 02/19/2024 [facility] [address] [address] 02/24/2024 [facility] [address] [address] 02/25/2024 [facility] [address] [address] 03/09/2024 [facility] [address] [address] 11/05/2024 Ajit Silver Lumbar radiculopathy M54.16 Assessments [...] effects are noted. Last UDS and [place] COLLAR PACKER reviewed today. Patient is advised that best [...] infarction and pneumonia and was in the [facility] of time. He [...] effects are noted. Last UDS and AR COLLAR PACKER reviewed today. Patient is advised that best [...] - M54.16) 07/15/2024 Atherosclerotic heart disease of [place] coronary artery without angina pectoris (ICD-10 - I25.10) [id number] Description:Damon ry arteriosclerosis 06/24/2024 Atherosclerotic heart disease of [place] coronary artery without angina pectoris (ICD-10 - I25.10) [id number] Description:Damon ry arteriosclerosis 07/15/2024 Long-term use of [...] testing policy. 09/02/2024 Atherosclerotic heart disease of [place] coronary artery without angina pectoris (ICD-10 - I25.10) [id number] Description:Damon ry arteriosclerosis 11/05/2024 Atherosclerotic heart disease of [place] coronary artery without angina pectoris (ICD-10 - I25.10) [id number] Description:Damon ry arteriosclerosis 06/24/2024 Abnormality of gait [...] Pending Test Test Name Order Date Diagnostic Colonoscopy-[id number] 02/19/2024 Next Appt Details Provider Name:Elizabeth verduzco, 01/07/2025 02:20:00 PM, [address] [place], [address], Insurance Providers Payer Name Payer Address Payer Phone Subscriber Number Group Number Insured Name Patient Relationship to Insured Coverage Start Date Coverage End Date [facility] Medicare Advantage - PPO [address] [address] [place] [address] [id number] Bret SMITHA Self - patient is the insured U[employer] Medicare Dual Complete PPO [address] [address] [place] [address] [id number] SMITHA Downey Self - patient is the insured [place] Medicaid [address] [place] [address] [id number] SMITHA Doweny Self - patient is the insured Medical [...]
--- OUTSIDE RECORDS SUMMARY | 2024-12-11 11:01 | XMS_ITS | Clinical Summary ---
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 9 Active atorvastatin (LIPITOR) 40 mg tablet [...] sugar). 4 Active naloxone (NARCAN) 4 mg/spray [place], Non-Aerosol EMERGENCY USE ONLY: Administer 1 spray (4 mg) in one nostril one time. May repeat in alternating nostrils every 2-3 min until responsive or EMS arrives. 2 Each 3 5 Active sacubitriL-vals tommy (ENTRESTO) 24-26 mg Tablet Take 1 Tablet by mouth daily. 200 Tablet 3 07/03/2024 4:14 PM HIM SPECIALIST 5 Active carvediloL (COREG) 12.5 mg tablet Take 1 Tablet (12.5 mg) by mouth 2 times daily. 30 Tablet 07/03/2024 4:14 PM HIM SPECIALIST 5 Active isosorbide mononitrate (IMDUR) 60 mg Extended Release 24 hour tablet Take 1 Tablet (60 mg) by mouth daily in the morning. 30 Tablet 07/03/2024 4:14 PM HIM SPECIALIST 5 Active HYDROcodone-fede taminophen (NORCO) 5-325 [...] (10/17/2022): Added automatically from request for surgery [id number] Scrotal pain 02/07/2021 Adenoma of both adrenal glands 05/24/2019 Overview (10/17/2022): Seen on CT abd at [facility] 10/[address] abd at [facility] 10/2018 Diverticulosis 05/24/2019 History of pulmonary [...] Overview (11/24/2020): secondary to fasciotomy Atherosclerosis of [place] co ronary artery of [place] heart with stable angina pectoris 08/18/2012 DM (diabetes mellitus), type 2, uncontrolled 05/2012 Acquired hypothyroidism 08/18/2012 Resolved Problems Problem Noted Date Diagnosed Date Resolved Date Advanced care planning/counseling discussion 5 06/30/2024 Right lower lobe pneumonia 05/24/2019 0 07/03/2024 CKD (chronic kidney disease) stage 3, GFR 30-59 ml/min 07/02/2013 10/17/2022 JESUS (acute kidney injury) 04/15/2013 Acute CHF 04/11/2013 10/17/2022 JESSU (acute kidney injury) 04/11/2013 CKD (chronic kidney disease) stage 2, GFR 60-89 ml/min 10/17/2022 Encounters Date Type Department Care Team Description 12/04/2024 Telephone [facility] Vascular Surgery [place] [address] [place] [address] Shannan Goodwin MD Question 11/13/2024 3:30 PM CDT Office Visit [facility] Vascular Surgery [place] [address] [place] [address] Shannan Goodwin MD ESRD (end stage renal disease) ([facility]) (Primary Dx); AV graft stenosis, subsequent encounter 11/09/2024 Telephone [place] [address] [facility] [address] [place] [address] Stephani Keen MD Severe pain in right arm/shoulder 11/03/2024 11:02 AM CDT - 11/03/2024 11:59 PM CDT Hospital Encounter [facility] Interventional Radiology [address] [address] Yesi Madison MD Birlew, Ryan Avery, MD Discharge Disposition: Home or Self Care 11/02/2024 Telephone [facility] Interventional Radiology [address] [address] Sabra Barr RN Procedure (Instructed patient for scheduled procedure with sedation on 11/03/24. Check at the [place] entrance at 1230. 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 /) 11/02/2024 Telephone [facility] [address] [facility] [address] [place] [address] Stephani Keen MD PT needs to cancel Pacemaker appointment 11/02/2024 Telephone [facility] Vascular Surgery [place] [address] [place] [address] Shannan Goodwin MD Appointment Notification 10/30/2024 12:51 PM CDT - 10/30/2024 11:59 PM CDT Hospital Encounter [facility] Dialysis [address] [address] Discharge Disposition: Home or Self Care 10/30/2024 11:30 AM CDT - 10/30/2024 11:59 PM CDT Hospital Encounter [facility] Interventional Radiology [address] [place] [address] [place] [phone] Yesi Madison MD Birlew, Ryan Avery, MD Discharge Disposition: Home or Self Care 10/28/2024 Telephone [facility] Vascular Surgery [address] [place] [phone] Shannan Goodwin MD Appointment Verification 10/27/2024 [facility] Vascular Surgery [address] [phone] Shannan Goodwin MD Question 10/20/2024 External Device Data STL ABSTRACTION Provider, Abstract 10/19/2024 Telephone [facility] [phone] Shannan Goodwin MD Information 09/28/2024 [facility] Vascular Surgery [address] [phone] Shannan Goodwin MD Needs Appointment 09/24/2024 [place] [id number] [facility] [address] [place] [phone] Marla Rodriges FNP Appointment Notification 09/22/2024 External Device Data STL ABSTRACTION Provider, Abstract 09/19/2024 2:43 PM CDT - 09/24/2024 4:56 PM CDT Hospital Encounter [address] Medical [address] [place] [phone] Lucia Hernandez DO Abbas, Muhammad Khalid, MD Bandaru, Kiran Babu, MD Neupane, Gagan, MD AV fistula occlusion Discharge Disposition: Home or Self Care 09/19/2024 10:47 AM CDT - 09/19/2024 1:03 PM CDT Emergency [facility] Emergency Medicine [address] [place] [phone] Joesph Larios MD Vascular graft occlusion, initial encounter (Primary Dx) Discharge Disposition: Home or Self Care 09/19/2024 12:15 AM CDT - 09/19/2024 11:59 PM CDT Hospital Encounter [facility] Emergency Medical Services [address] [place] [address] Ambulance, [facility] Discharge Disposition: RUST 09/19/2024 Travel 09/11/2024 Telephone [facility] Vascular Surgery [place] [address] [place] [address] Pat Archibald FNP Question from Last 3 Months Immunizations Immunization Administration Dates Next Due (ADACEL/BOOSTRIX)(10 YR UP) TDAP VACCINE, 0.5ML, IM 05/30/2021 (HEPLISAV-B)(18 YR UP) HEPAT ITIS B VACCINE CPG-ADJUVANTED (HEPB-CPG) 2-4 DOSE, IM 10/30/2022,08/25/2022,07/21/2022,06/23 (PNEUMOVAX 23)(50 YRS UP) PN EUMOCOCCAL POLYSACCHARIDE (PPV23) 0.5 ML, IM 09/18/2022,05/25/2019 (PREVNAR 20)(6 WKS UP) PNEUM OCOCCAL CONJUGATE VACCINE 20-VALENT (PCV20), POLYSACCHARIDE [id number] CONJUGATE, ADJUVANT 0.5 ML (PF) IM 06/26/2022 [...] on file Legal Sex Male 2:43 AM HIM SPECIALIST Gender Identity Not on file Sexual [...] Description 02/12/2025 3:30 PM CDT Office Visit [facility] Vascular Surgery [place] [address] [facility] [address] [place] [phone] Shannan Goodwin MD [address] [facility] [address] [place] [address] Health Maintenance Due Date Last [...] 08/10/2020, 06/06/2020 Medical Devices Implanted Type Area Mobile Marketing Specialist Device Identifier Shelf Expiration Date Model / Serial / Lot Clip Ligating Horizon Red [id number] - Csc - [id number] Implanted:Qty : 1 on 09/28/2022 by Guero Felder MD at [facility] Clip Left: Arm [employer]LE[employer] INC [id number] 12/25/2026 [id number] / / [id number] Clip Ligating Horizon Med Ti 257782 - Csc - [id number] Implanted:Qty : 1 on 09/28/2022 by Guero Felder MD at [facility] Clip Left: Arm TELEFLEX- WECK CLOSURE SYS [id number] 10/08/2026 [id number] / / [id number] Clip Ligating Horizon Red 666768 - [facility] - [id number] Implanted:Qty : 1 on 11/14/2022 by Jimmy Anaya MD at [facility] Clip Left: Arm TELE[employer]LEX INC [id number] 12/25/2026 [id number] / / [id number] Clip Ligating Horizon Med Ti [id number] - [facility] - [id number] Implanted:Qty : 1 on 11/14/2022 by Jimmy Anaya MD at [facility] Clip Left: Arm TELEFLEX- WECK CLOSURE SYS [id number] 02/12/2027 / / [id number] Closure Perclose Prostyle Sut Mediate 52772-08 - [id number] Implanted:Qty : 1 on 05/03/2023 by Jay Bales MD at [facility] Closure Device Right: Groin SALAS- VASC DEVICE 01/17/2025 57107-9 [id number] / / [id number] Dev Closure Angioseal 6fr Vip [id number] - [id number] Implanted:Qty : 1 on 05/03/2023 by Jay Bales MD at [facility] Closure Device Right: Groin [facility] 10/11/2023 [id number] / / [id number] Dev Closure Angioseal 6fr Vip 038249 - [id number] Implanted:Qty : 1 on 06/19/2024 by Prince Barfield MD at [facility] Closure Device Right: Groin TERUMO- CARDIOVASC SYS 01/13/2025 [id number] / / [id number] Dev Icd Acticor 7 Vr-T Dx Df4 Hybrid 050979 - [id number] Implanted:Qty : 1 on 07/23/2024 by Stephani Keen MD at [facility] Defibrillator Right: Chest Wall [employer] INC [id number] 05/19/2026 [id number] / [id number] / Graft Vasc Propaten 4-6amv67kq [id number] - [id number] Implanted:Qty : 1 on 09/28/2022 by Guero Felder MD at [facility] Graft Left: Arm [employer] [id number] 04/02/2026 [id number] / [id number] 2026-03 Hemostatic Surgicel 1x2in 1960 - [id number] Implanted:Qty : 1 on 09/28/2022 by Guero Felder MD at [facility] Hemostatic Left: Arm J&J- ETHIC[employer] INC [id number] 02/16/20251960 / / [id number] Hemostatic Surgicel 1x2in 1960 - [id number] Implanted:Qty : 1 on 09/28/2022 by Guero Felder MD at [facility] Hemostatic Left: Arm J&J- [employer] INC [id number] 12/17/20241960 / / [id number] Lead Endocardial Pamira S Dx 65/15 Rv W Atr Sensing 274758 - [id number] Implanted:Qty : 1 on 07/23/2024 by Stephani Keen MD at [facility] Lead Right: Chest Wall [employer] INC [id number] 05/19/2026 [id number] / [id number] / Power Port Implanted:(Qu antity not on file) Explanted:(Qu antity not on file) Port Port- 9 Implanted: (Quantity not on file) Port Suture Perchik 2 Button Pouch [id number] - [id number] Implanted:Qty : 1 on 08/23/2023 at [facility] Screw [employer] [id number] / / Description:This is Not an I mplant Stent Implanted:(Qu antity not on file) Explanted:(Qu antity not on file) Stent Stent Synergy Xd 3.5x16mm Evrlms Elut [id number] - [id number] Implanted:Qty : 1 on 05/03/2023 by Jay Bales MD at [facility] Stent Left: Coronary Mobile Roadie PATRICK 01/01/2025 [id number] / / [id number] Stent Viabahn Hep 8mmx7.5xcm [id number] - [id number] Implanted:Qty : 1 on 10/23/2023 by Jimmy Anaya MD at [facility] Stent Left: Arm [employer] [id number] 12/23/2025 [id number] / [id number] / Procedures Procedure Name Priority Date/Time Associated Diagnosis Comments IR FISTULOGRAM Routine 11/03/2024 1:16 PM CDT ESRD (end stage renal disease) ([facility]) TELEMETRY REPORT 09/25/2024 2:39 AM CDT POC [...] CDT HEMOGLOBIN A1C Routine 06/27/2024 5:39 AM HIM SPECIALIST LIPID PANEL Routine 05/02/2023 9:36 PM HIM SPECIALIST from Last 3 Months or Most [...] flows.. DIAGNOSIS: ESRD (end stage renal disease) ([facility]). Medications: Fentanyl and versed were titrated to effect. Moderate (conscious) sedation for this procedure was performed with continuous physician supervision. Medical history, physical exam, drug dosages, routes of drug administration, monitoring data, and precise times of service are documented in the medical record on the [facility]-approved form, 'Sedative/Analgesic Administration for Diagnostic and [...] transitional dilator was exchanged for a 6 Uzbek vascular sheath. Angioplasty of recurrent moderate stenosis [...] was obtained and exchanged for a 6 Uzbek sheath. A Glidewire was advanced retrograde into [...] flows.. DIAGNOSIS: ESRD (end stage renal disease) ([facility]). Medications: Fentanyl and versed were titrated to effect. Moderate (conscious) sedation for this procedure was performed with continuous physician supervision. Medical history, physical exam, drug dosages, routes of drug administration, monitoring data, and precise times of service are documented in the medical record on the [facility]-approved form, 'Sedative/Analgesic Administration for Diagnostic and [...] transitional dilator was exchanged for a 6 Uzbek vascular sheath. Angioplasty of recurrent moderate stenosis [...] was obtained and exchanged for a 6 Uzbek sheath. A Glidewire was advanced retrograde into [...] - 99 mg/dL 09/24/2024 12:46 PM CDT [facility] SPECIMEN SOURCE, GLUCOSE POC Capillary 09/24/2024 12:46 PM CDT [facility] Blood, whole 09/24/2024 12:4 6 PM CDT 09/24/2024 1:21 PM CDT Cas Barreto MD POINT OF CARE TESTING Final Res ult [facility] # [id number] [address] [place] [address] * HEMODIALYSIS (09/24/2024 7:53 AM CDT) Narrative Yesi Madison MD - 09/24/2024 7:53 AM CDT Yesi Madison MD 09/24/2024 8:22 AM [facility] - Procedure Note Primary Plant Facilities Technician: Dr. Yesi Madison PROCEDURE: Intermittent Hemodialysis INDICATION: [...] ultrafiltration with rinse back. Yesi Madison MD [facility] 09/24/24, 7:54 AM Pamela Sevilla DO DIALYSIS ORDERABLES Edited Resu lt - Final * (ABNORMAL) CBC WITH DIFFERENTIAL (09/24/2024 1:23 AM CDT) Only the most recent of5 resultswithin the time period is included. WBC 7.3 4.8 - 10.8 K/uL 09/24/2024 1:37 AM [facility] RBC 3.24(L) 4.60 - 6.20 M/uL 09/24/2024 1:37 AM [facility] HEMOGLOBIN 10.3(L) 14.0 - 18.0 g/dL 09/24/2024 1:37 AM [facility] HEMATOCRIT 30.2(L) 41.0 - 53.0 % 09/24/2024 1:37 AM [facility] MCV 93.2 84.0 - 103.0 fL 09/24/2024 1:37 AM [facility] MCH 31.8 27.0 - 34.0 pg 09/24/2024 1:37 AM [facility] MCHC 34.1 30.0 - 35.0 g/dL 09/24/2024 1:37 AM [facility] PLATELETS 207 140 - 440 K/uL 09/24/2024 1:37 AM [facility] MPV 9.3 8.9 - 12.8 fL 09/24/2024 1:37 AM [facility] RDW 15.5(H) 11.0 - 14.5 % 09/24/2024 1:37 AM [facility] RDW-STDEV 51.8 37.0 - 54.0 fL 09/24/2024 1:37 AM [facility] NEUTROPHILS 60 42 - 75 % 09/24/2024 1:37 AM [facility] LYMPHOCYTES 27 24 - 44 % 09/24/2024 1:37 AM [facility] MONOCYTES 9 2 - 10 % 09/24/2024 1:37 AM [facility] EOSINOPHILS 3 0 - 7 % 09/24/2024 1:37 AM [facility] BASOPHILS 1 0 - 1 % 09/24/2024 1:37 AM [facility] IMMATURE GRANULOCYTES 0 0 - 2 % 09/24/2024 1:37 AM [facility] NEUTROPHIL ABSOLUTE 4.37 2.00 - 8.00 K/uL 09/24/2024 1:37 AM [facility] LYMPHOCYTE ABSOLUTE 1.98 1.20 - 4.00 K/uL 09/24/2024 1:37 AM [facility] MONOCYTE ABSOLUTE 0.65(H) 0.10 - 0.60 K/uL 09/24/2024 1:37 AM [facility] EOSINOPHIL ABSOLUTE 0.22 0.00 - 0.70 K/uL 09/24/2024 1:37 AM [facility] BASOPHILS ABSOLUTE 0.04 0.00 - 0.20 K/uL 09/24/2024 1:37 AM [facility] IMMATURE GRANULOCYTES ABSOLUTE 0.03 0.00 - 0.10 K/uL 09/24/2024 1:37 AM [facility] SMEAR REVIEWED: NA - Not Applicable 09/24/2024 1:37 AM [facility] Blood Venipuncture / Unknown 09/24/2024 1:23 AM CDT 09/24/2024 1:31 AM CDT us Cas Barreto MD HEMATOLOGY ORDERABLES Final Res ult [facility] CLIA # [id number] [address] [place] [address] [place] [address] * (ABNORMAL) BASIC METABOLIC PANEL (09/24/2024 1:23 AM CDT) Only the most recent of5 resultswithin the time period is included. SODIUM 134(L) 136 - 145 mmol/L 09/24/2024 2:06 AM T [facility] POTASSIUM 3.9 3.5 - 5.1 mmol/L 09/24/2024 2:06 AM [facility] Comment:Moderate hemolysis p resent. Can cause significant falsely elevated result. Redraw if indicated. CHLORIDE 96(L) 98 - 107 mmol/L 09/24/2024 2:06 AM [facility] CO2 26 22 - 29 mmol/L 09/24/2024 2:06 AM [facility] CALCIUM 8.5(L) 8.6 - 10.0 mg/dL 09/24/2024 2:06 AM [facility] BUN 35(H) 6 - 20 mg/dL 09/24/2024 2:06 AM T [facility] CREATININE 4.10(H) 0.67 - 1.17 mg/dL 09/24/2024 2:06 AM [facility] GLUCOSE 133(H) 74 - 99 mg/dL 09/24/2024 2:06 AM [facility] GFR 16(L) >=60 mL/min/1. 73 sq meter 09/24/2024 2:06 AM [facility] Comment:eGFR calculated with 2020 CKD-EPI equation. Vegetarian diet, extremely high or low muscle mass, and may affect results. Cystatin C with Glomerular Filtration Rate is a suitable alternative for these patients. ANION GAP 12 9 - 20 mmol/L 09/24/2024 2:06 AM CDT [facility] Blood Venipuncture / Unknown 09/24/2024 1:23 AM CDT 09/24/2024 1:31 AM CDT Cas Barreto MD CHEMISTRY ORDERABLES Final Resu lt Performing Organization Address [facility] Co de Phone Number [facility] CLIA # [id number] [address] [address] [place] [address] * (ABNORMAL) TROPONIN (09/23/2024 3:22 PM CDT) TROPONIN T, 5TH GEN 42(H) <=15 ng/L 09/23/2024 4:17 PM CDT [facility] Blood Venipuncture / Unknown 09/23/2024 3:22 PM CDT 09/23/2024 3:46 PM CDT Narrative [facility] - 09/23/2024 4:17 PM CDT Troponin elevated. 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1970 Requested By: Order Number: [id number] Reading : Erasmo Reese Measurements Intervals [place] Rate: 79 P: 42 OK: 182 QRS: 23 QRSD: 112 T: 121 QT: 394 QTc: 451 Interpretive Statements Normal sinus rhythm Anterior infarct, age undetermined Abnormal ECG Electronically Signed On 09-23-2024 20:04:59 CDT by Erasmo Reese Procedure Note Erasmo Reese MD - 09/23/[address] [address] Test Date: 2024-09-23 Pat Name: SMITHA QUEEN Department: 12 Room: [address] [place] [address] 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 Yesi Madison PROCEDURE: Intermittent Hemodialysis INDICATION: [...] HD days while inpatient. Zoey Johnson NP [facility] 09/22/24, 12:36 PM Pamela Sevilla DO DIALYSIS ORDERABLES Final Resul t * HEMODIALYSIS (09/21/2024 4:14 PM CDT) Zita Blank MD - 09/21/2024 4:14 PM CDT Zita Gilbert MD 09/21/2024 7:36 PM [facility] - Procedure Note Primary Plant Facilities Technician: Dr. Yesi Madison PROCEDURE: Intermittent Hemodialysis INDICATION: [...] HD days while inpatient. Zoey Johnson NP [facility] 09/21/24, 4:15 PM Windy Chirinos PROCESSING MANAGER DIALYSIS ORDERABLES Final R esult * US DUPLEX ARTERIAL ARM LEFT (09/19/2024 3:26 PM CDT) Anatomical Region Laterality Modality Upper Extremity Ultrasound 09/19/2024 3:04 PM CDT Narrative 09/19/2024 4:28 PM CDT [facility] Cardiovascular Services Noninvasive Vascular Laboratory [address] [place] [address] Noninvasive Vascular Lab Upper Extremity Hemodialysis Access Follow-up Evaluation Patient: Smitha Queen Junior Study ID: US DUPLEX ARTERI Gender: M : 1970 Age: 54 Room: 15 Height: 165.1cm Weight: 93.8kg BSA: 2.11m^2 Pt status: Outpatient Study Date: 09/19/2024 Study Time: 03:04:00 PM BSA: 2.11m^2 Ordering: Lucia Hernandez Interpreting:Erasmo Berg Finance Admin: Coby Chau RVT Indications: Concern for thrombosed [...] the supine position. Image quality was good. [facility] Vascular Lab is accredited with the Intersocietal Commission for the Accreditation of Vascular Laboratories (ICAVL) Prepared and Electronically Authenticated Erasmo Berg Confirmed 09/19/2024 16:28 Procedure Note Erasmo Berg MD - 09/19/2024 [facility] Cardiovascular Services Noninvasive Vascular Laboratory [address] [place] [address] Noninvasive Vascular Lab Upper Extremity Hemodialysis Access Follow-up Evaluation Patient: Smitha Queen Junior Study ID: US DUPLEX ARTERI Gender: M : 1970 Age: 54 Room: 15 Height: 165.1cm Weight: 93.8kg BSA: 2.11m^2 Pt status: Outpatient Study Date: 09/19/2024 Study Time: 03:04:00 PM BSA: 2.11m^2 Ordering: Lucia Hernandez Interpreting:Erasmo Berg Finance Admin: Coby Chau RVT Indications: Concern for thrombosed [...] the supine position. Image quality was good. [facility] Vascular Lab is accredited with theIntersocietal Commission for the Accreditation of Vascular Laboratories (ICAVL) Prepared and Electronically Authenticated Erasmo Berg Confirmed 09/19/2024 16:28 us Lucia Hernandez DO US ORDERABLES Final Result * (ABNORMAL) PROTIME-INR (09/19/2024 3:11 PM CDT) Only the most recent of2 resultswithin the time period is included. PROTIME 14.8(H) 12.6 - 14.6 Seconds 09/19/2024 3:45 PM CDT [facility] INR 1.1 0.8 - 1.2 09/19/2024 3:45 PM CDT [facility] Blood Venipuncture / Unknown 09/19/2024 3:11 PM CDT 09/19/2024 3:22 PM CDT [facility] - 09/19/2024 3:45 PM CDT Expected Values for INR: DVT/PE Goal INR 2.5; range 2.0 - 3.0 Valve Replacement Tissue Goal INR 2.5; range 2.0 - 3.0 Valve Replacement Mechanical Goal INR 3.0; range 2.5 - 3.5 POST-LA Goal INR 2.5; range 2.0 - 3.0 or Goal INR 3.0; range 2.5 - 3.5 Atrial Fibrillation Goal INR 2.5; range 2.0 - 3.0 Ischemic Stroke Goal INR 2.5; range 2.0 - 3.0 Lucia Hernandez DO HEMATOLOGY ORDERABLES Final Resu lt Performing Organization Address [facility] Co de Phone Number [facility] CLIA # [id number] [address] [address] * TYPE AND SCREEN (09/19/2024 3:11 PM CDT) ABO GROUP O 09/19/2024 4:00 PM CDT [facility] RH (D) TYPE Negative 09/19/2024 4:00 PM CDT [facility] ANTIBODY SCREEN Negative 09/19/2024 4:00 PM CDT [facility] Blood Venipuncture / Unknown 09/19/2024 3:11 PM CDT 09/19/2024 3:22 PM CDT us Lucia Hernandez DO BLOOD BANK ORDERABLES Edited Res ult - Final Performing Organization Address [facility] Co de Phone Number [facility] CLIA#[id number] [facility] [place] [address], * PTT (09/19/2024 11:29 AM CDT) PTT 30.1 25.8 - 34.0 seconds 09/19/2024 11:57 AM CDT [facility] Blood BLOOD SPECIMEN / Unknown Collection / Unknown 09/19/2024 11:29 AM CDT 09/19/2024 11:38 AM CDT Joesph Larios MD HEMATOLOGY ORDERABLES Final Res ult Performing Organization Address [facility]/ZIP Co de Phone Number [facility] CLIA # [id number] [address] [place] [address] * (ABNORMAL) D-DIMER (09/19/2024 11:29 AM CDT) D-DIMER QUANT 1.25(H) <0.50 ug/mL FEU 09/19/2024 12:00 PM CDT [facility] Blood BLOOD SPECIMEN / Unknown Collection / Unknown 09/19/2024 11:29 AM CDT 09/19/2024 11:38 AM CDT [facility] - 09/19/2024 12:00 PM CDT D-Dimer assay [...] ORDERABLES Final Res ult Performing Organization Address City/[facility]/ZIP Co de Phone Number [facility] CLIA # [id number] [address] [place] [address] * C-REACTIVE PROTEIN (09/19/2024 11:29 AM CDT) CRP 4.7 <5.0 mg/L 09/19/2024 12:00 PM CDT [facility] Blood BLOOD SPECIMEN / Unknown Collection / Unknown 09/19/2024 11:29 AM CDT 09/19/2024 11:38 AM CDT us Joesph Larios MD CHEMISTRY ORDERABLES Final Resu lt Performing Organization Address [facility]/ZIP Co de Phone Number [facility] # [id number] [address] [place] [address] * (ABNORMAL) BRAIN NATRIURETIC PEPTIDE, BNP OR PROBNP (09/19/2024 11:29 AM CDT) PROBNP, N TERMINAL 1,241(H) 0 - 125 pg/mL 09/19/2024 12:00 PM CDT [facility] Comment: INTERPRETIVE COMMENT based on diagnosis: Diagnostic [...] ORDERABLES Final Resu lt Performing Organization Address City/[facility]/ZIP Co de Phone Number [facility] CLIA # [id number] [address] [place] [address] * MAGNESIUM LEVEL (09/19/2024 11:29 AM CDT) MAGNESIUM 1.9 1.6 - 2.6 mg/dL 09/19/2024 12:00 PM CDT [facility] Blood BLOOD SPECIMEN / Unknown Collection / Unknown 09/19/2024 11:29 AM CDT 09/19/2024 11:38 AM CDT us Joesph Larios MD CHEMISTRY ORDERABLES Final Resu lt [facility] # [id number] [address] [place] [address] * (ABNORMAL) COMPREHENSIVE METABOLIC PANEL (09/19/2024 11:29 AM CDT) SODIUM 138 136 - 145 mmol/L 09/19/2024 12:00 PM [facility] POTASSIUM 4.4 3.5 - 5.1 mmol/L 09/19/2024 12:00 PM [facility] CHLORIDE 99 98 - 107 mmol/L 09/19/2024 12:00 PM [facility] CO2 29 22 - 29 mmol/L 09/19/2024 12:00 PM [facility] CALCIUM 8.7 8.6 - 10.0 mg/dL 09/19/2024 12:00 PM [facility] BUN 35(H) 6 - 20 mg/dL 09/19/2024 12:00 PM [facility] CREATININE 3.36(H) 0.67 - 1.17 mg/dL 09/19/2024 12:00 PM [facility] GLUCOSE 141(H) 74 - 99 mg/dL 09/19/2024 12:00 PM [facility] TOTAL PROTEIN 5.7(L) 6.6 - 8.7 g/dL 09/19/2024 12:00 PM [facility] ALBUMIN 3.5(L) 4.0 - 4.9 g/dL 09/19/2024 12:00 PM [facility] BILIRUBIN TOTAL 0.4 0.0 - 1.2 mg/dL 09/19/2024 12:00 PM [facility] ALKALINE PHOSPHATASE 86 40 - 129 U/L 09/19/2024 12:00 PM [facility] AST 14 0 - 50 U/L 09/19/2024 12:00 PM [facility] ALT 9 0 - 50 U/L 09/19/2024 12:00 PM T [facility] GFR 21(L) >=60 mL/min/1.7 3 sq meter 09/19/2024 12:00 PM [facility] Comment:eGFR calculated with 2020 CKD-EPI equation. Vegetarian diet, extremely high or low muscle mass, and may affect results. Cystatin C with Glomerular Filtration Rate is a suitable alternative for these patients. ANION GAP 10 5 - 20 mmol/L 09/19/2024 12:00 PM T [facility] Blood BLOOD SPECIMEN / Unknown Collection / Unknown 09/19/2024 11:29 AM CDT 09/19/2024 11:38 AM CDT us Joesph Larios MD CHEMISTRY ORDERABLES Final Resu lt Performing Organization Address [facility] Co de Phone Number [facility] CLIA # [id number] [address] [place] [address] * (ABNORMAL) HEMOGLOBIN A1C (06/27/2024 5:39 AM HIM SPECIALIST) HEMOGLOBIN A1C 6.6(H) <=5.6 % 06/29/2024 9:10 AM HIM SPECIALIST [facility] EST. AVG GLUCOSE, A1C 143 mg/dL 06/29/2024 9:10 AM [facility] Blood Collection / Unknown 06/27/2024 5:39 AM HIM SPECIALIST 06/27/2024 6:05 AM HIM SPECIALIST Narrative [facility] - 06/29/2024 9:10 AM HIM SPECIALIST HGB A1C INTERPRETATION NORMAL: <5.7% PRE-DIABETES: 5.7 - 6.4% DIABETES: 6.5% OR GREATER us Joey Vo DO CHEMISTRY ORDERABLES Final R esult Performing Organization Address [facility]/ZIP Co de Phone Number [facility] CLIA # [id number] [address] [place] [address] * (ABNORMAL) LIPID PANEL (05/02/2023 9:36 PM HIM SPECIALIST) CHOLESTEROL 224(H) <200 mg/dL 05/03/2023 10:26 PM [facility] TRIGLYCERIDE 286(H) <150 mg/dL 05/03/2023 10:26 PM [facility] HDL 39(L) 40 - 59 mg/dL 05/03/2023 10:26 PM [facility] LDL CALCULATED 128(H) <100 mg/dL 05/03/2023 10:26 PM [facility] NON-HDL CHOLESTEROL 185(H) <130 mg/dL 05/03/2023 10:26 PM [facility] Blood Venipuncture / Unknown 05/02/2023 9:36 PM HIM SPECIALIST 05/02/2023 9:51 PM HIM SPECIALIST Narrative [facility] - 05/03/2023 10:26 PM [facility] TOTAL CHOLESTEROL mg/dL Desirable <200 Borderline [...] Covarrubias MD CHEMISTRY ORDERABLES Final Resul t [facility] CLIA # [id number] [address] [place] [address] from Last 3 Months or Most Recently Relevant to Health Maintenance Insurance MEDICAID [facility] [id number] * Guarantor: SMITHA QUEEN II Account Type Relation to Patient Date of Phone Billing Address Personal/Family [address] [place] [address] RX [employer] PLANS (INTERNAL) [facility] RX [employer] Commercial RX INFOCROSSING Medicaid RX [employer] RX Member Subscriber Plan / Payer (Ef fective for All Dates) Name:Smitha Queen II, Junior Relation to Subscriber:Self Name:Smitha Queen II, Junior Payer ID:Not on file Type:RX Medicare Part D Address: [place] Advance Directives For more information, please contact: [phone] Documents on File Type Date Recorded Patient Clinical Biostatistician Expl anation Advance Directive POA 08/23/2014 4:06 [...] 2:16 AM 07/03/2024 6:07 PM Care Teams Motor Grader Operator Relationship Specialty Start Date End Date Dez Evans MD [address] [place] [address] PCP - General Family Practice 06/18/24
--- OUTSIDE RECORDS SUMMARY | 2024-12-11 11:01 | XMS_ITS | Encounter Summary ---
Author Organization [facility], [facility] Address [address] [place] [address] Phone Care Team Providers Care Hospice Rn Name Role Phone Kp Montanez DO Primary Care Provider [phone] Reason for Visit * Reason Comments Med Refill Encounter Details Date Type Department Care Team (Late st Contact Info) Description 03/07/2022 [facility] [address] [place] [address] Ghazal Schmitt, PATIENT INFORMATION COORDINATOR [address] [place] [address] Chronic combined systolic and diastolic [...] failure documented in this encounter Care Teams Hospice Rn Relationship Specialty Start Date End Date Kp Montanez DO [address] [place] [address] PCP - General Internal Medicine 01/07/23 documented as of this encounter
--- OUTSIDE RECORDS SUMMARY | 2024-12-11 11:01 | XMS_ITS | Encounter Summary ---
Author Organization [facility], [facility] Address [address] [place] [address] Phone Care Team Providers Care Bleach Boiler Packer Name Role Phone MontanezKp kevin Primary Care Provider [phone] Encounter Details Date Type Department Care Team (Late st Contact Info) Description 09/29/2024 [facility] [employer], [facility] [address] [place] [address] Ayad Monahan, BONSAI CULTURIST [address] [place] [address] Social History Tobacco Use Types [...] 09/29/2024 The patient was seen for a [id number] visit as part of Transitional Care Management services. Attending Casualty Claim Adjuster: RITA MENENDEZ Dialysis Location: [facility] Schedule: Shift: 1 INTERACTIVE [...] 98.1*F Current Dialysis Vitals BP Sit: 159/81 AP/PHILATELIC CONSULTANT: 198/162 Pulse: 86 CARE COORDINATION No follow-up appointments noted. COMMENTS: no new referrals. EDUCATION Education relevant to the discharge diagnosis provided to the patient or caregiver IMPRESSION & PLAN COMMENTS: 1.hemodialysis access problem; fistulogram completed. Now working well. 2. ESRD on HD: Continue HD TTS. VISIT DIAGNOSES CPT Code 97061 - High complexity, seen within 7 days [...] on filedocumented in this encounter Care Teams Bleach Boiler Packer Relationship Specialty Start Date End Date Kp Montanez DO [address] [place] [address] PCP - General Internal Medicine 01/07/23 documented as of this encounter
--- OUTSIDE RECORDS SUMMARY | 2024-12-11 11:01 | XMS_ITS | Encounter Summary ---
Author Organization [facility], [facility] Address [address] [facility] [address] [place] [address] Phone Care Team Providers Care Director Of Spa And Guest Experience Name Role Phone Kp Montanez DO Primary Care Provider [phone] Reason for Visit * Reason Comments Med Refill Encounter Details Date Type Department Care Team (Late st Contact Info) Description 11/17/2021 Refill [facility] [address] [facility] [address] [place] [address] Antolin Weiss MD [address] [place] [address] Social History Tobacco Use Types [...] on filedocumented in this encounter Care Teams Director Of Spa And Guest Experience Relationship Specialty Start Date End Date Kp Monatnez DO [address] [place] [address] PCP - General Internal Medicine 01/07/23 documented as of this encounter
--- OUTSIDE RECORDS SUMMARY | 2024-12-11 11:01 | XMS_ITS | Encounter Summary ---
Author Organization [facility] Address [address] [place] [address] Care Team Providers Care Solar Tech Name Role Phone Dze Evans MD Primary Care Provider [phone] Reason for Visit * Reason Onset Date Comments Question 12/04/2024 Encounter Details Date Type Department Care Team (Late st Contact Info) Description 12/04/2024 Telephone [facility] Vascular Surgery [place] [address] [facility] [address] [place] [address] Shannan Goodwin MD [address] [facility] [address] [place] [address] Question Social History Tobacco Use Types Packs/Day Years Used Date Smoking Tobacco: Never Smokeless Tobacco: Never Alcohol Use Standard Drinks/Week Comments Not Currently 0 (1 standard drink = 0.6 oz pur e alcohol) rarely drinks since 2013 Sex and Gender Information Value Date Recorded Sex Assigned at Not on file Legal Sex Male 2:43 AM CHUTE FEEDER Gender Identity Not on file Sexual Orientation Not on file Occupation Industry Job Start Date Job End Date Not on file Not on file Not on file Not on file documented as of this encounter Miscellaneous Notes * Telephone Encounter - Winston Nguyen - 12/04/2024 3:25 PM CDT Christa (Provider) MESSAGE Pt is asking if Dr has rec'd msg sent from [employer]. documented in this encounter Plan of Treatment Upcoming Encounters Date Type Department Care Team (Late st Contact Info) Description 02/12/2025 3:30 PM CDT Office Visit [facility] Vascular Surgery [place] [address] [place] [address] Shannan Goodwin MD [address] [place] [address] documented as of this encounter Visit Diagnoses Not on filedocumented in this encounter Additional Health Concerns Assessment Noted Time PHQ-9 Depression Total Score: 1 06/29/19 25 2:57 AM CHUTE FEEDER documented as of this encounter Care Teams Solar Tech Relationship Specialty Start Date End Date Dez Evans MD [address] [place] [address] PCP - General Family Practice 06/18/24 documented as of this encounter
--- OUTSIDE RECORDS SUMMARY | 2024-12-11 11:01 | XMS_ITS | Clinical Summary ---
Author Organization [facility] Address [address] [address] Care Team Providers Care Truck Mechanic Apprentice Name Role Phone Kp Montanez DO Primary Care Provider [phone] Allergies Active Allergy Reactions Criticality Noted Date [...] taking.Reported on 06/25/2024 bumetanide (BUMEX) 2 MG tabletIndications:Resident Engineer jose combined systolic and diastolic heart failure [...] Overview (04/26/2020): Seen on CT abd at 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 06/26/2018 Combined hyperlipidemia 01/15/2013 Acquired hypothyroidism 08/18/2012 Encounters Date Type Department Care Team Description 12/03/2024 Orders Only [facility] [address] [place] [address] Yesi Madison MD 12/01/2024 Treatment [facility], [facility] [address] [place] [address] Zoey Johnson NP End stage renal disease; Dependence on renal dialysis 11/27/2024 Orders Only [facility] [address] [place] [address] Yesi Madison MD 11/24/2024 Telephone [facility] [address] [place] [address] Yesi Madison MD 11/24/2024 Treatment [facility], [facility] [address] [place] [address] Ghazal Schmitt NP End stage renal disease; Dependence on renal dialysis 11/19/2024 Orders Only [facility] [address] [place] [address] Yesi Madison MD 11/17/2024 [facility], [facility] [address] [place] [address] Ghazal Schmitt NP End stage renal disease; Dependence on renal dialysis 11/10/[address] [place] [address], [facility] [address] [place] [address] Zoey Johnson NP End stage renal disease; Dependence on renal dialysis 11/05/[address] [facility], [facility] [address] [place] [address] Yesi Madison MD 11/05/2024 Treatment [facility], [facility] [address] [place] [address] Yesi Madison MD End stage renal disease; Dependence on renal dialysis 10/22/[address] [facility], [facility] [address] [place] [address] Ysei Madison MD 10/20/[address] [place] [address], [facility] [address] [place] [address] Zoey Johnson NP End stage renal disease; Dependence on renal dialysis 10/20/[address] [facility], [facility] [address] [place] [address] Yesi Madison MD 10/15/[address] [facility], [facility] [address] [place] [address] Yesi Madison MD 10/15/[address] [place] [address], [facility] [address] [place] [address] Yesi Madison MD End stage renal disease; Dependence on renal dialysis 10/08/[address] [facility], [facility] [address] [place] [address] Yesi Madison MD 10/06/[address] [place] [address], [facility] [address] [place] [address] Ghazal Schmitt NP End stage renal disease; Dependence on renal dialysis 10/05/2024 Telephone [facility], [facility] [address] [place] [address] Yesi Madison MD 10/01/2024 Orders Only [facility], [facility] [address] [place] [address] Yesi Madison MD 09/29/2024 Orders Only [facility], [facility] [address] [place] [address] Yesi Madison MD 09/29/2024 TCM in Dialysis Clinic [address] [place] [address], [facility] [address] [place] [address] Zoey Johnson NP 09/29/[address] [place] [address], [facility] [address] [place] [address] Zoey Johnson NP End stage renal disease; Dependence on renal dialysis 09/26/2024 [facility], [facility] [address] [place] [address] Yesi Madison MD 09/17/2024 Orders Only [facility], [facility] [address] [place] [address] Yesi Madison MD from Last [...] 09/29/2024 HEMATOLOGY Routine 09/26/2024 HEMATOLOGY Routine 09/17/2024 from Last 3 Months Results * (ABNORMAL) HEMATOLOGY (12/03/2024) Only the most recent of11 resultswithin the time period is included. Pathologist [facility] Hemoglobin 12.6(L) 14.0 - 18.0 g/dL [facility] Hemoglobin x 3 37.8(L) 42.0 - 54.0 % [facility] 12/03/2024 12/04/2024 10: 44 AM CDT Narrative [facility] 12/04/2024 Unless otherwise specified, test(s) performed at: [facility], [address] [place], [place] [id number] DIRECTOR OF PRIMARY: Jose Martin Mariscal M.D. For any questions, please call customer service at FREQUENCY:OTHER Resulting Agency Comment Specimen source: Blood Yesi Madison MD LAB BLOOD ORDERABLES Final Re sult Performing Organization Address [facility] de Phone Number [facility] See order comments or contact performing lab Unknown, [place] * [facility] (11/27/2024) Only the most recent of5 resultswithin the time period is included. [facility] Potassium 4.1 3.5 - 5.1 mEq/L [facility] 11/27/2024 11/28/2024 10: 57 AM CDT Narrative [facility] - 11/28/2024 Unless otherwise specified, test(s) performed at: [facility], [address] [place] [address] DIRECTOR OF PRIMARY: Jose Martin Mariscal M.D. For any questions, please call customer service at FREQUENCY:OTHER Resulting Agency Comment Specimen source: Serum us Yesi Madison MD LAB BLOOD ORDERABLES Final Re sult Performing Organization Address [facility] de Phone Number [facility] See order comments or contact performing lab Unknown, [place] * HD KINETICS (11/19/2024) Only the most recent of3 resultswithin the time period is included. [facility] % Urea Reduction 74 65 - 80 % [facility] 11/19/2024 11/21/2024 10: 46 AM CDT Narrative [facility] - 11/21/2024 Unless otherwise specified, test(s) performed at: [facility], [address] [place] [address] DIRECTOR OF PRIMARY: Jose Martin Mariscal M.D. For any questions, please call customer service at FREQUENCY:MONTHLY Resulting Agency Comment Specimen source: Plasma Yesi Madison MD LAB BLOOD ORDERABLES Final Re sult Performing Organization Address City/[facility]/ZIP Co de Phone Number [facility] See order comments or contact performing lab Unknown, [place] * POST CHEMISTRY (11/19/2024) Only the most recent of3 resultswithin the time period is included. [facility] BUN Post Dialysis 11 6 - 19 mg/dL [facility] 11/19/2024 11/21/2024 10: 46 AM CDT Narrative [facility] - 11/21/2024 Unless otherwise specified, test(s) performed at: [facility], [address] [place] [address] DIRECTOR OF PRIMARY: Jose Martin Mariscal M.D. For any questions, please call customer service at FREQUENCY:MONTHLY Resulting Agency Comment Specimen source: Plasma Yesi Madison MD LAB BLOOD ORDERABLES Final Re sult Performing Organization Address City/[facility]/ZIP Co de Phone Number [facility] See order comments or contact performing lab Unknown, [place] * [facility] Results (11/19/2024) Only the most recent of3 resultswithin the time period is included. Pathologist [facility] eKt/V (Tattersall) 1.30 [facility] PCR 55.10 [facility] eKdrt/V 1.29 [facility] spKt/V (Daugirdas II) 1.49 [facility] WSTDKT/V 2.4 [facility] spKt/V Gotch 1.50 [facility] eNPCR 0.72 [facility] Center nPCR_HD 0.79 [facility] eKt/V Gotch 1.29 [facility] 11/19/2024 11/19/2024 us Valdo Ordering Provider LAB BLOOD ORDERABLES Final Result Performing Organization Address [facility]/ZIP Co de Phone Number [facility] Contact Performing lab Unknown, [place] * (ABNORMAL) THYROIDS (10/22/2024) TSH 4.142(H) 0.300 - 3.000 mIU/L [facility] Comment: The reference range of 0.300-3.000 mIU/L is recommended by the [place] [employer] Clinical Endocrinologists (AACE). An ESRD population contains about 20% of individuals with TSH of up to 20 mIU/L and normal free T4 consistent with non-thyroidal illness. ESRD patients with true hypothyroidism develop persistent values above 20 mIU/L. 10/22/2024 10/23/2024 1:1 0 PM CDT Narrative [facility] - 10/23/2024 Unless otherwise specified, test(s) performed at: [facility], [address] [place] [address] DIRECTOR OF PRIMARY: Jose Martin Mariscal M.D. For any questions, please call customer service at FREQUENCY:MONTHLY Resulting Agency Comment Specimen source: Serum Yesi Madison MD LAB BLOOD ORDERABLES Final Re sult Performing Organization Address [facility] Co de Phone Number [facility] See order comments or contact performing lab Unknown, [place] * SPECIAL CHEMISTRY (10/22/2024) Only the most recent of2 resultswithin the time period is included. Creatine Kinase (CK/CPK) 47 30 - 223 U/L [facility] 10/22/2024 10/23/2024 1:1 0 PM CDT Narrative Resulting Agency Comment Specimen source: Serum Yesi Madison MD LAB BLOOD BANK TEST ORDERABLE S Final Result Performing Organization Address [facility]/State/ZIP Co de Phone Number [facility] See order comments or contact performing lab Unknown, [place] from Last 3 Months Insurance [facility] Medicare Care Teams Truck Mechanic Apprentice Relationship Specialty Start Date End Date Kp Montanez DO [address] [place] [address] PCP - General Internal Medicine 01/07/23
--- OUTSIDE RECORDS SUMMARY | 2024-12-11 11:02 | XMS_ITS | Encounter Summary ---
Author Organization [facility], [facility] Address [address] [place] [address] Phone Care Team Providers Care Haulage Engine Operator Name Role Phone Kp Montanez DO Primary Care Provider [phone] Reason for Visit * Reason Comments Med Refill Encounter Details Date Type Department Care Team (Late st Contact Info) Description 05/08/2021 Refill [facility] [address] [address] [place] [address] Ghazal Schmitt NP [address] [place] [address] Social History Tobacco Use Types [...] on filedocumented in this encounter Care Teams Haulage Engine Operator Relationship Specialty Start Date End Date Kp Montanez DO [address] [place] [address] PCP - General Internal Medicine 01/07/23 documented as of this encounter
--- NOTE | 2024-12-11 12:24 | CT_ITS ---
WS: [id number] CT HEAD NONCONTRAST HISTORY: ams TECHNIQUE: Contiguous axial imaging performed through the brain. Bone and soft tissue windows. Sagittal and coronal reformats reviewed. All CT scans at [facility] use at least one of these dose optimization techniques: automated exposure control; mA and/or kV adjustment per patient size (includes targeted exams where dose is matched to clinical indication); or iterative reconstruction. DLP: 1356.43 mGy.cm COMPARISON: 12/10/2024 No acute intracranial hemorrhage, midline shift or mass effect. No atrophy or prior infarcts or herniation. No development of edema or sulcal effacement. Ventricles: Normal size with no hydrocephalus. Very extensive calcifications in the vertebral arteries through the foramen magnum and the intracranial carotid arteries. Paranasal sinuses: As visualized are clear. Mastoid air cells: Well pneumatized. Calvarium and scalp: Skull is intact with no soft tissue edema or swelling. CT/CT head wo con* [id number] IMPRESSION: 1. No acute intracranial hemorrhage or edema. 2. No significant volume loss or subacute infarct identified. 3. Extensive atherosclerotic plaque in the distal vertebral and intracranial c arotid arteries.
--- NOTE | 2024-12-11 12:24 | XR_ITS ---
WS: [id number] Portable AP upright chest, 12/11/2024 Clinical Data: ams Comparison: Portable chest, 12/10/2024 Findings: No nodules, masses or effusions are seen. The cardiac pacemaker remains in same position. Midline sternotomy sutures and coronary artery stents are seen. There is a vascular stent in the medial left arm. The infusion catheter remains in the same position. The heart is normal. The pulmonary va scularity is not increased. No pneumonia or pneumothorax is seen. XR/XR chest 1V portable [id number] Impression: No change from yesterday.
[2024-12-11 12:30] VITALS: BP 157/89; PULSE 91; O2SAT 94
--- NOTE | 2024-12-11 12:32 | ECG_ITS ---
[employer] Test Date: 2024-12-11 Pat Name: Rei Queen Department: Room: Gender: Male Plumbing Assembler: : 1970 Requested By: Inge Hart Order Number: [id number] Reading MD: Measurements Intervals [place] Rate: 91 P: 42 WA: 193 QRS: -34 QRSD: 106 T: 85 QT: 339 QTc: 419 Interpretive Statements SINUS RHYTHM POSSIBLE LEFT ATRIAL ENLARGEMENT [-0.1mV P-WAVE IN V1/V2] LEFT AXIS DEVIATION [QRS AXIS < -30] POSSIBLE ANTERIOR MYOCARDIAL INFARCTION , OF INDETERMINATE AGE [30 ms Q WAVE IN V3/V4, OR R < 0.2 mV IN V4] No previous ECG available for comparison [email or web address]
--- NOTE | 2024-12-11 12:36 | W.ED.AMS ---
HPI - Altered Mental Status General: Chief Complaint: Altered Mental Status Stated Complaint: confused,slurrred speech Time Seen by Provider: 12/11/24 12:30 History of Present Illness: 54-year-old man with history of end-stage renal disease on dialysis, coronary artery disease, DVT with chronic anticoagulation on Eliquis, type 2 diabetes mellitus and hypertension who presents to the emergency room with continued episodes of mild confusion and difficulty speaking. No focal motor deficits. He currently has no deficits. I saw him yesterday for this and he had a complete workup that was negative at the time. says today he had walked into neighbors apartment by accident and then had trouble coming up with words. No fevers. Currently no altered mental status. No focal motor deficits. No chest pain. Related Data Home Medications ?Medication ?Instructions ?Recorded ?Confirmed diphenhydramine HCl 25 mg tablet 50 mg PO DAILY PRN Allergy Symptoms 05/02/23 12/10/24 (Benadryl Allergy) insulin lispro 100 unit/mL See Rx Instructions .Route .COMPLEX 05/02/23 12/10/24 subcutaneous pen (Humalog KwikPen (U-100) Insulin) vit B,C-folic ac 800 mcg-zinc 12.5 1 tab PO BEDTIME 10/29/23 12/10/24 mg-selen-D3 2,000 unit-vit E tablet (RenaPlex-D) tizanidine 2 mg tablet 2 mg PO BID 03/24/24 12/10/24 bumetanide 2 mg tablet 2 mg PO BID 04/15/24 12/10/24 hydroxyzine HCl 50 mg tablet 100 mg PO BEDTIME PRN insomnia 04/21/24 12/10/24 promethazine 25 mg tablet 25 mg PO Q6H PRN Nausea 04/21/24 12/10/24 acetaminophen 500 mg tablet 1,000 mg PO QID PRN Pain 06/04/24 12/10/24 (Tylenol Extra Strength) hydrocodone 5 mg-acetaminophen 325 1 tab PO Q6H 06/16/24 12/10/24 mg tablet metoprolol tartrate 25 mg tablet 12.5 mg PO BID 06/16/24 12/10/24 apixaban 2.5 mg tablet (Eliquis) 2.5 mg PO BID 12/08/24 12/10/24 fexofenadine 180 mg tablet 180 mg PO DAILY 12/08/24 12/10/24 (Allergy Relief (fexofenadine)) gabapentin 300 mg capsule 300 mg PO BID 12/08/24 12/10/24 insulin degludec 200 unit/mL (3 40 unit SUBCUT BEDTIME 12/08/24 12/10/24 mL) subcutaneous pen (Tresiba FlexTouch U-200 insulin) levothyroxine 88 mcg tablet 88 mcg PO QAM 12/08/24 12/10/24 ranolazine 1,000 mg 1,000 mg PO BID 12/08/24 12/10/24 tablet,extended release,12 hr Previous Rx's ?Medication ?Instructions ?Recorded nitroglycerin 0.4 mg sublingual 0.4 mg sublingual Q5M PRN Chest 08/27/23 tablet (Nitrostat) Pain #25 tabs fluoxetine 40 mg capsule 40 mg PO QAM #30 caps 04/20/24 trazodone 100 mg tablet 300 mg (3 x 100 mg) PO BEDTIME PRN 04/20/24 insomia #90 tabs mupirocin 2 % topical ointment 1 applic topical BID #15 grams 11/09/24 (Centany) tirzepatide 15 mg/0.5 mL See Rx Instructions .Route 11/18/24 subcutaneous pen injector .COMPLEX #2 mL (Mounjaro) clopidogrel 75 mg tablet (Plavix) 75 mg PO DAILY 30 days #30 tabs 12/09/24 Allergies Allergy/AdvReac Type Severity Reaction Status Date / Time Iodinated Contrast Media Allergy Severe ALGY-Difficulty Verified 12/10/24 10:58 Breathing iodine Allergy Severe ALGY-Difficulty Verified 12/10/24 10:58 Breathing metoclopramide (From Reglan) Allergy Severe ALGY-Difficulty Verified 12/10/24 10:58 Breathing nalbuphine (From Nubain) Allergy Severe ADR-Diarrhe Verified 12/10/24 10:58 a naproxen (From Naprosyn) Allergy Severe ADR-Vomitin Verified 12/10/24 10:58 g Sulfa (Sulfonamide Allergy Severe ALGY-Difficulty Verified 12/10/24 10:58 Antibiotics) Breathing ketorolac Allergy Intermediate ADR-Nausea Verified 12/10/24 10:58 ondansetron (From Zofran) Allergy Intermediate ADR-Abdominal Verified 12/10/24 10:58 Pain prochlorperazine (From Allergy Intermediate ADR-Irritab Verified 12/10/24 10:58 Compazine) le codeine AdvReac Severe ALGY-Anaphy Verified 12/10/24 10:58 laxis haloperidol (From Haldol) AdvReac Intermediate ADR-Irritab Verified 12/10/24 10:58 le Review of Systems Narrative: Constitutional symptoms: Negative except as documented in HPI. Skin symptoms: Negative except as documented in HPI. Eye symptoms: Negative except as documented in HPI. ENMT symptoms: Negative except as documented in HPI. Respiratory symptoms: Negative except as documented in HPI. Cardiovascular symptoms: Negative except as documented in HPI. Gastrointestinal symptoms: Negative except as documented in HPI. Genitourinary symptoms: Negative except as documented in HPI. Musculoskeletal symptoms: Negative except as documented in HPI. Neurologic symptoms: Negative except as documented in HPI. Psychiatric symptoms: Negative except as documented in HPI. Endocrine symptoms: Negative except as documented in HPI. PFSH ED PFSH: Medical History (Updated 12/11/24 @ 15:01 by Inge Ortiz MD) Atherosclerotic heart disease of [place] coronary artery with other forms of angina pectoris hx of CAD with prior stenting of proximal LAD, LCx, RCA ESRD (end stage renal disease) Hypothyroidism Generalized anxiety disorder Major depressive disorder, recurrent severe without psychotic features Pericarditis Elevated troponin Essential hypertension Essential hypertension ESRD (end stage renal disease) Hypertension Psychiatric care 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 mellitus Chronic renal failure Chest pain Chest pain CRF (chronic renal failure) Chronic right SI joint pain Chronic systolic heart failure UTI (urinary tract infection) Peripheral arterial disease PVD (peripheral vascular disease) Worsening angina Angina at rest Chest pain Uremic encephalopathy ESRD (end stage renal disease) D-dimer, elevated Acute on chronic congestive heart failure History of pulmonary embolism Diabetes Acute kidney injury superimposed on CKD GERD (gastroesophageal reflux disease) Alcohol use disorder, moderate, in sustained remission DVT (deep venous thrombosis) (~03/2020) Proximal left subclavian, basilic and brachial veins, started eliquis this stay, felt present prior to admission Chronic kidney disease -baseline Cr appears to be around 1.5 Ischemic cardiomyopathy Onychodystrophy Chronic anticoagulation Eliquis Osteoarthritis of spine Hypertension Hyperlipidemia Diabetes Depression Anemia Foot drop, left H/O acute myocardial infarction H/O deep venous thrombosis developed compartment syndrome Surgical History Peritoneal dialysis catheter in situ (06/15/21) History of appendectomy 1995 History of excision of mass 06/08/2019: Subcutaneous mass on back History of removal of Port-a-Cath Port-A-Cath in place H/O vasectomy Hx of cholecystectomy History of coronary artery stent placement 5x H/O skin graft History of inguinal hernia repair, bilateral 2000 H/O removal of testicle left H/O colonoscopy (11/14/20) 08/2015 H/O esophagogastroduodenoscopy (11/14/20) 08/2015 Family History Grandfather Cancer skin cancer Parkinson disease Brother Hypertension Father Heart disease Mother Hypertension Stroke Aneurysm Grandmother Aneurysm Other Crohn's disease Denies family history of Anesthesia complication Bleeding disorder Social History Smoking and tobacco/nicotine status: never used tobacco/nicotine Second hand smoke exposure: No Alcohol intake: former Year of sobriety/quit date alcohol: 2016 Former alcohol use details: Only holidays - last use 05.19.2015 Substance/Drug Use: never Adopted: No Caregiver/support person: No Lives independently: Yes Household members: spouse Housing: Apartment Marital status: Number of children: 2 Number of grandchildren: 0 Highest education level completed: High School Graduate service: No Current occupational status: disabled Pets and animals: Yes Pets & animals: dog(s) Leisure activites: games and other Leisure activities details: watching TV Sexually active: Yes Do you think of yourself as: Straight/Heterosexual Current gender identity: Male Shannon/Amish: Latter-Day Special shannon needs: No Agree to transfusion: Yes Physical Exam Narrative: General: Alert, no acute distress. Skin: Warm, dry. Head: Normocephalic, atraumatic. Neck: Supple, trachea midline. Eye: Extraocular movements are intact. Ears, nose, mouth and throat: mucosa moist. Cardiovascular: Regular, Normal peripheral perfusion. Respiratory: Lungs are clear to auscultation, respirations are non-labored, breath sounds are equal, Symmetrical chest wall expansion. Gastrointestinal: Soft, Nontender, Non distended Musculoskeletal: Normal ROM, no deformity. Neurological: Alert and oriented, No focal neurological deficit observed. Psychiatric: Cooperative, appropriate mood & affect. Course Vital Signs: Vital signs: Vital Signs Temperature 98.2 F 12/11/24 10:58 Pulse Rate 93 12/11/24 14:30 Respiratory Rate 12 12/11/24 14:30 Blood Pressure 163/97 12/11/24 14:30 Pulse Oximetry 97 12/11/24 14:30 Oxygen Delivery Me thod Room Air 12/11/24 10:58 MDM - Altered Mental Status Medical Decision Making Medical decision making: Differential diagnosis including but not limited to and based on the above HPI, review of systems and physical exam: In this patient with altered mental status: Stroke. Hypoglycemia. Metabolic encephalopathy. Infections such as pneumonia, urinary tract infection, Covid-19, Influenza. Electrolyte abnormalities such as hypernatremia. Renal failure / uremia. Hepatic encephalopathy. Hypoxemia. Hypercapnic respiratory failure. Psychosis. Drug or alcohol intoxication. Medication overdose. Orders placed to evaluate differential diagnosis based on the above differential, HPI and physical exam CT head: No acute intracranial process. no intracranial hemorrhage, no evidence of infarct. no evidence of acute fracture.This was reviewed and interpreted by myself the ER physician. Chest x-ray: No acute process. No infiltrate. No pneumothorax. This was reviewed and interpreted by myself the emergency room physician. I also reviewed the radiology report. Lab Review: Laboratory results were reviewed and interpreted by myself the emergency room physician. No leukocytosis. No anemia. Urine drug screen is positive for both opiates and benzodiazepines. He is prescribed hydrocodone but I do not see any benzodiazepines on the prescription monitoring program. I reviewed the patient's medical record. Reexamination: Patient remained stable. No increased work of breathing. No altered mental status. No focal motor deficits. Assessment and plan: Encephalopathy ?I am finding no acute findings again today. He is may be related to his opiates or benzos. Also could be anxiety as ABG shows some hypocapnia - Discharged home - Discussed plan with patient. Answered any questions. - Evaluation and treatment of this problem were appropriate in the emergency setting. Lab Data 12/11/24 13:44 12/11/24 13:44 Radiology Impressions Chest X-Ray 12/11/24 12:24 Impression: No change from yesterday. Head CT 12/11/24 12:24 IMPRESSION: 1. No acute intracranial hemorrhage or edema. 2. No significant volume loss or subacute infarct identified. 3. Extensive atherosclerotic plaque in the distal vertebral and intracranial carotid arteries. Laboratory Results WBC 7.42 10^3/uL (3.29-11.43) 12/11/24 13:44 RBC 3.64 10^6/uL (3.85-5.65) L 12/11/24 13:44 Hgb 12.20 g/dL (11.27-16.99) 12/11/24 13:44 Hct 35.5 % (37-53) L 12/11/24 13:44 MCV 97.5 fl (82-101) 12/11/24 13:44 MCH 33.5 pg (27-33) H 12/11/24 13:44 MCHC 34.4 g/dL (30-55) 12/11/24 13:44 RDW 13.9 % (12.1-15.1) 12/11/24 13:44 Plt Count 213 10^3/cmm (157-399) 12/11/24 13:44 MPV 10.0 fL (7.4-10.4) 12/11/24 13:44 Neut % (Auto) 70.3 % 12/11/24 13:44 Lymph % (Auto) 15.2 % 12/11/24 13:44 [place] % (Auto) 12.5 % 12/11/24 13:44 Eos % (Auto) 1.1 % 12/11/24 13:44 Baso % (Auto) 0.5 % 12/11/24 13:44 Neut # (Auto) 5.21 10^3/uL (1.8-7.7) 12/11/24 13:44 Lymph # (Auto) 1.1 10^3/uL (0.8-4.8) 12/11/24 13:44 [place] # (Auto) 0.9 10^3/uL (0.2-0.9) 12/11/24 13:44 Eos # (Auto) 0.1 10^3/uL (0.0-0.8) 12/11/24 13:44 Baso # (Auto) 0.0 10^3/uL (0.0-0.1) 12/11/24 13:44 Nucleated RBC % (auto) 0 % 12/11/24 13:44 Nucleated RBCs # 0.0 /100WBC 12/11/24 13:44 Specimen Type Venous 12/11/24 13:09 Sample Site Brachial, right 12/11/24 13:09 ABG pH 7.52 (7.35-7.45) H 12/11/24 13:09 ABG pCO2 34.0 mmHg (35-45) L 12/11/24 13:09 ABG pO2 40.3 mmHg (80.0-100.0) L 12/11/24 13:09 ABG PO2/FiO2 Ratio 191 12/11/24 13:09 ABG HCO3 28.1 mmol/L (22-26) H 12/11/24 13:09 ABG O2 Saturation 73.8 12/11/24 13:09 ABG Base Excess 5.3 mmol/L (-2.0-2.0) H 12/11/24 13:09 Scottie Test Pos 12/11/24 13:09 A-a O2 Gradient 8.7 mmHg (5-10) 12/11/24 13:09 Hematocrit 36.0 % (42-52) L 12/11/24 13:09 Hgb O2 Saturation 72.0 % (95-100) L 12/11/24 13:09 Carboxyhemoglobin 1.5 %THgb (0.4-20.1) 12/11/24 13:09 Methemoglobin 1.0 % (0.4-1.5) 12/11/24 13:09 Total Hemoglobin 11.7 g/dL (14-18) L 12/11/24 13:09 Sodium 140.0 mmol/L (131-143) 12/11/24 13:09 Potassium 4.1 mmol/L (3.5-5.0) 12/11/24 13:09 Glucose 110.0 mg/dL (70-115) 12/11/24 13:09 Ionized Calcium 1.2 mmol/L (1.1-1.4) 12/11/24 13:09 O2 Delivery Device Room air 12/11/24 13:09 FiO2 21.0 % 12/11/24 13:09 Psychopaedic Nurse ID Cak 12/11/24 13:09 Sodium 137 mmol/L (136-145) 12/11/24 13:44 Potassium 4.5 mmol/L (3.5-5.1) 12/11/24 13:44 Chloride 96 mmol/L (98-107) L 12/11/24 13:44 Carbon Dioxide 22 mmol/L (22-29) 12/11/24 13:44 Anion Gap 23.5 (5-19) H 12/11/24 13:44 BUN 36 mg/dL (6-20) H 12/11/24 13:44 Creatinine 4.2 mg/dL (0.7-1.2) H 12/11/24 13:44 GFR Calculation 14.8 mL/min (90-130) L 12/11/24 13:44 Glucose 98 mg/dL (65-115) 12/11/24 13:44 Calculated Osmolality 292 mOsm/kg (285-295) 12/11/24 13:44 Calcium 9.4 mg/dL (8.5-10.5) 12/11/24 13:44 Magnesium 1.9 mg/dL (1.7-2.3) 12/11/24 13:44 Total Bilirubin 0.8 mg/dL (0.15-1.2) 12/11/24 13:44 AST 17 U/L (0-40) 12/11/24 13:44 ALT 9 U/L (0-41) 12/11/24 13:44 Alkaline Phosphatase 110 U/L (40-130) 12/11/24 13:44 Troponin T Baseline 82 ng/L (0-15) H 12/11/24 13:44 NT-Pro-B Natriuret Pep 6101 pg/mL (0-125) H 12/11/24 13:44 Total Protein 6.8 g/dL (6.6-8.7) 12/11/24 13:44 Albumin 3.7 g/dL (3.5-5.2) 12/11/24 13:44 Globulin 3.1 g/dL (1.3-4.6) 12/11/24 13:44 Urine Color Yellow (Yellow) 12/11/24 13:40 Urine Appearance Cloudy (CLEAR) A 12/11/24 13:40 Urine pH 8.0 (5-7) A 12/11/24 13:40 Ur Specific [place] 1.013 (1.005-1.030) 12/11/24 13:40 Urine Protein 2+ (Negative) A 12/11/24 13:40 Urine Glucose (UA) Negative (Normal) 12/11/24 13:40 Urine Ketones Trace (Negative) 12/11/24 13:40 Urine Blood Negative (Negative) 12/11/24 13:40 Urine Nitrate Negative (Negative) 12/11/24 13:40 Urine Bilirubin Negative (Negative) 12/11/24 13:40 Urine Urobilinogen 1.0 mg/dL (Negative) 12/11/24 13:40 Ur Leukocyte Esterase Negative (Negative) 12/11/24 13:40 Urine RBC 0-2 /hpf (0-2) 12/11/24 13:40 Urine WBC 0-5 /hpf (0-5) 12/11/24 13:40 Ur Squamous Epith Cells 0-5 /hpf (0-5) 12/11/24 13:40 Amorphous Sediment Not Reportable 12/11/24 13:40 Urine Bacteria None seen /hpf (NONE) 12/11/24 13:40 Hyaline Casts 2.46 /lpf 12/11/24 13:40 Urine Opiates Screen Positive ng/mL (Negative) H 12/11/24 13:40 Ur Barbiturates Screen Negative ng/mL (Negative) 12/11/24 13:40 Ur Phencyclidine Scrn Negative ng/mL (Negative) 12/11/24 13:40 Ur Amphetamines Screen Negative ng/mL (Negative) 12/11/24 13:40 U Benzodiazepines Scrn Positive ng/mL (Negative) H 12/11/24 13:40 Urine Cocaine Screen Negative ng/mL (Negative) 12/11/24 13:40 U Marijuana (THC) Screen Negative ng/mL (Negative) 12/11/24 13:40 Ethyl Alcohol < 10 mg/dL (0-10) 12/11/24 13:44 Serum Ketones Negative (Negative) 12/11/24 13:44 All radiology interpretation(s) finalized by discharge Discharge Plan Discharge Patient Disposition: Home Clinical Impression: Altered mental status Condition: Stable Prescriptions: No Action trazodone 100 mg tablet 300 mg PO BEDTIME PRN (Reason: insomia ) Qty: 90 11RF fluoxetine 40 mg capsule 40 mg PO QAM Qty: 30 11RF mupirocin [Centany] 2 % ointment 1 applic topical BID Qty: 15 2RF nitroglycerin [Nitrostat] 0.4 mg tablet, sublingual 0.4 mg SUBLINGUAL Q5M PRN (Reason: Chest Pain) Qty: 25 2RF Rx Instructions: do not exceed 3 doses per episode Mounjaro 15 mg/0.5 mL pen injector See Rx Instructions .ROUTE .COMPLEX Qty: 2 2RF Dose Instruction: inject 15mg (0.5ml) SUBCUTANEOUSLY EVERY 7 DAYS Rx Instructions: inject 15mg (0.5ml) SUBCUTANEOUSLY EVERY 7 DAYS ON SATURDAY. tizanidine 2 mg tablet 2 mg PO BID promethazine 25 mg tablet 25 mg PO Q6H PRN (Reason: Nausea) hydroxyzine HCl 50 mg tablet 100 mg PO BEDTIME PRN (Reason: insomnia) diphenhydramine HCl [Benadryl Allergy] 25 mg Tablet 50 mg PO DAILY PRN (Reason: Allergy Symptoms) insulin lispro [Humalog KwikPen Insulin] 100 unit/mL insulin pen See Rx Instructions .ROUTE .COMPLEX Rx Instructions: Sliding scale subcutaneously twice a day as needed. RenaPlex-D 800 mcg-12.5 mg -2,000 unit tablet 1 tab PO BEDTIME bumetanide 2 mg tablet 2 mg PO BID acetaminophen [Tylenol Extra Strength] 500 mg Tablet 1,000 mg PO QID PRN (Reason: Pain) hydrocodone-acetaminophen 5-325 mg tablet 1 tab PO Q6H metoprolol tartrate 25 mg tablet 12.5 mg PO BID fexofenadine [Allergy Relief (fexofenadine)] 180 mg tablet 180 mg PO DAILY levothyroxine 88 mcg tablet 88 mcg PO QAM gabapentin 300 mg capsule 300 mg PO BID Eliquis 2.5 mg tablet 2.5 mg PO BID insulin degludec [Tresiba FlexTouch U-200] 200 unit/mL (3 mL) insulin pen 40 unit SUBCUT BEDTIME ranolazine 1,000 mg tablet extended release 12 hr 1,000 mg PO BID clopidogrel [Plavix] 75 mg tablet 75 mg PO DAILY 30 Days Qty: 30 0RF Discharge Orders: Discharge ED (Routine); Ordered 12/11/24 Ordered By: Inge Ortiz Referrals: Dez Evans MD [Primary Care Provider, Family Practice] Discharge Diet: Usual diet Discharge Activity: Resume usual activity Patient Instructions: Altered Mental Status (ED), Opioid Safety, Pain Management, Patient Portal & Sunny Instructions Activity Restrictions/Additional Instructions: Thank you for choosing [facility] for your healthcare needs today. You have been screened and evaluated and felt safe for discharge. Health conditions do change or evolve sometimes and as such it is important that you follow up with your Primary Doctor to be re checked, 3-5 days is a general good time frame for follow up. You are always welcome to return to the ED for re assessment if your symptoms are worsening or you have new concerns Print Language: Emirati Coding Level of Care Code ED Shell Maker Lockstitch for Aaron Irene
[2024-12-11 13:00] VITALS: BP 183/93; PULSE 93; O2SAT 96
[2024-12-11 13:21] LABS: ABG PCO2 34.0 mmHg (35-45); ABG PH Result 7.52 (7.35-7.45); Alveolar-Arterial Oxygen Gradi 8.7 mmHg (5-10); Arterial Blood Gas Hematocrit 36.0 % (42-52); Blood Gas Allen Test Pos; Blood Gas Operator Identificat CAK; Blood Gas Sample Site Brachial, right; Carboxyhemoglobin 1.5 %THgb (0.4-20.1); Glucose Level-ABG 110.0 mg/dL (70-115); HCO3 ABG 28.1 mmol/L (22-26); Ionized Calcium Level - ABG 1.2 mmol/L (1.1-1.4); Methemoglobin 1.0 % (0.4-1.5); Oxygen Saturation ABG 73.8; PO2 ABG 40.3 mmHg (80.0-100.0); PO2 FiO2 Ratio Arterial Blood 191; Potassium Level - ABG 4.1 mmol/L (3.5-5.0); Sodium Level - ABG 140.0 mmol/L (131-143)
[2024-12-11 13:22] LABS: Blood Gas Sample Type Venous
[2024-12-11 14:00] VITALS: BP 184/100; PULSE 101; O2SAT 95
[2024-12-11 14:09] LABS: Ketone (Acetest) Serum Negative (Negative)
[2024-12-11 14:18] LABS: Glucose Urine UA Negative (Normal); Nitrate Urine Negative (Negative); Specific Gravity, Urine 1.013 (1.005-1.030)
[2024-12-11 14:19] LABS: Troponin(5th) Baseline 82 ng/L (0-15)
[2024-12-11 14:20] LABS: Add Urine Microscopic? YES
[2024-12-11 14:25] LABS: PCP Screen Urine Negative (Negative)
[2024-12-11 14:30] VITALS: BP 163/97; PULSE 93; RESP 12; O2SAT 97
[2024-12-11 14:38] LABS: Alanine Aminotransferase 9 U/L (0-41); Albumin Level 3.7 g/dL (3.5-5.2); Alkaline Phosphatase 110 U/L (40-130); Blood Urea Nitrogen 36 mg/dL (6-20); Calcium 9.4 mg/dL (8.5-10.5); Carbon Dioxide 22 mmol/L (22-29); Chloride 96 mmol/L (98-107); Creatinine Clr Calc Pharmacy 19.8259; Globulin 3.1 g/dL (1.3-4.6); Glucose 98 mg/dL (65-115); Magnesium 1.9 mg/dL (1.7-2.3); NT Pro B Type Natriuretic Pept 6101 pg/mL (0-125); Osmolality Calculated 292 mOsm/kg (285-295); Sodium 137 mmol/L (136-145); Total Protein 6.8 g/dL (6.6-8.7)
[2024-12-11 14:39] LABS: Hematocrit 35.5 % (37-53); Hemoglobin 12.20 g/dL (11.27-16.99); Mean Corpuscular HGB Conc 34.4 g/dL (30-55); Mean Corpuscular Hemoglobin 33.5 pg (27-33); Mean Corpuscular Volume 97.5 fl (82-101); Nucleated Red Blood Cells % 0 %; Platelet Count 213 10^3/cmm (157-399); Red Blood Count 3.64 10^6/uL (3.85-5.65); White Blood Count 7.42 10^3/uL (3.29-11.43)
[2024-12-11 14:55] LABS: Alcohol Level < 10 mg/dL (0-10); Anion Gap 23.5 (5-19); Potassium 4.5 mmol/L (3.5-5.1)
[2024-12-11 14:56] LABS: Aspartate Amino Transferase 17 U/L (0-40)
[2024-12-11 15:27] VITALS: BP 150/82; PULSE 88; O2SAT 94
== END 2024-12-11 15:29 | disposition home or self-care (01) ==
PROVIDERS: Nurse Practitioner; Emergency Provider Emergency Medicine; PCP Family Medicine
DX: R41.82 Altered mental status, unspecified (principal); Z79.4 Long term (current) use of insulin; Z79.01 Long term (current) use of anticoagulants; Z79.02 Long term (current) use of antithrombotics/antiplatelets; E78.5 Hyperlipidemia, unspecified; I25.118 Atherosclerotic heart disease of native coronary artery with other forms of angina pectoris; E11.22 Type 2 diabetes mellitus with diabetic chronic kidney disease; I12.0 Hypertensive chronic kidney disease with stage 5 chronic kidney disease or end stage renal disease; N18.6 End stage renal disease
CPT/HCPCS: 36415; 36600; 70450; 71045; 80051; 80053; 80306; 80307; 81001; 82009; 82330; 82805; 83735; 83880; 84484; 85025; 93005; 99285

== ENCOUNTER 2024-12-12 07:47 | Observation (INO) | payer MEDICARE, SELFPAY ==
[2024-03-20 13:31] VITALS: BP 125/53; BMI 35.0
[2024-12-12] VITALS (15 sets, daily range): BP systolic 133–198; BP diastolic 58–104; PULSE 84–125; RESP 17–24; TEMP 36.8–37; O2SAT 92–100; BMI 33.3; BMI 31.6
--- OUTSIDE RECORDS SUMMARY | 2024-12-12 07:54 | XMS_ITS | Encounter Summary ---
Author Organization [facility] Address [address] [place] [address] Phone Care Team Providers Care Help Desk Rep Name Role Phone Kp Montanez DO Primary Care Provider [phone] Reason for Visit * Reason Comments Med Refill Encounter Details Date Type Department Care Team (Late st Contact Info) Description 11/17/2021 Refill [facility] [address] [facility] [address] [place] [address] Antolin Weiss MD [address] [place] [address] Social History Tobacco Use Types [...] on filedocumented in this encounter Care Teams Help Desk Rep Relationship Specialty Start Date End Date Kp Montanez DO [address] [place] [address] PCP - General Internal Medicine 01/07/23 documented as of this encounter
--- OUTSIDE RECORDS SUMMARY | 2024-12-12 07:54 | XMS_ITS | Encounter Summary ---
Author Organization [facility] Address [address] [place] [address] Care Team Providers Care Sheet Rock Installation Helper Name Role Phone Dez Evans MD Primary Care Provider [phone] Reason for Visit * Reason Onset Date Comments Question 12/04/2024 Encounter Details Date Type Department Care Team (Late st Contact Info) Description 12/04/2024 Telephone [facility] [place] [address] [facility] [address] [place] [address] Shannan Goodwin MD [address] [facility] [address] [place] [address] Question Social History Tobacco Use Types Packs/Day Years Used Date Smoking Tobacco: Never Smokeless Tobacco: Never Alcohol Use Standard Drinks/Week Comments Not Currently 0 (1 standard drink = 0.6 oz pur e alcohol) rarely drinks since 2013 Sex and Gender Information Value Date Recorded Sex Assigned at Not on file Legal Sex 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 documented in this encounter Plan of Treatment Upcoming Encounters Date Type Department Care Team (Late st Contact Info) Description 02/12/2025 3:30 PM CDT Office Visit [facility] [place] [address] [place] [address] Shannan Goodwin MD [address] [place] [address] documented as of this encounter Visit Diagnoses Not on filedocumented in this encounter Additional Health Concerns Assessment Noted Time PHQ-9 Depression Total Score: 1 06/29/19 25 2:57 AM PRECISION LATHE OPERATOR documented as of this encounter Care Teams Sheet Rock Installation Helper Relationship Specialty Start Date End Date Dez Evans MD [address] [place] [address] PCP - General Family Practice 06/18/24 documented as of this encounter
--- OUTSIDE RECORDS SUMMARY | 2024-12-12 07:54 | XMS_ITS | Encounter Summary ---
Author Organization [facility] Address [address] [facility] [address] [place] [address] Phone Care Team Providers Care Clerical Adjudicator Name Role Phone Kp Montanez DO Primary Care Provider [phone] Reason for Visit * Reason Comments Med Refill Encounter Details Date Type Department Care Team (Late st Contact Info) Description 03/07/2022 Refill [facility] [address] [place] [address] Ghazal Schmitt, CELL ATTENDANT HELPER [address] [facility] [address] [place] [address] Chronic combined systolic and diastolic [...] failure documented in this encounter Care Teams Clerical Adjudicator Relationship Specialty Start Date End Date Kp Montanez DO [address] [place] [address] PCP - General Internal Medicine 01/07/23 documented as of this encounter
--- OUTSIDE RECORDS SUMMARY | 2024-12-12 07:54 | XMS_ITS | Clinical Summary ---
Author Organization [facility] Address [address] [place] [address] Care Team Providers Care Head Of Music Name Role Phone Kp Montanez Primary Care [...] for Pain. 15 Tablet 04/10/2018 11:19 AM DIESEL MECHANIC CONSTRUCTION 8 Active nitroglycerin (NITROSTAT) 0.4 mg Tablet, [...] tablet Take 88 mcg by mouth daily early interventionist. Active metFORMIN (GLUCOPHAGE) 500 mg tablet Take 500 mg by mouth 2 times daily with meals. Active isosorbide mononitrate (IMDUR) 30 mg Extended Release 24 hour tablet Take 1 Tablet (30 mg) by mouth daily early interventionist. 30 Tablet 9 Active metoprolol tartrate (LOPRESSOR) [...] Overview (08/18/2012): secondary to fasciotomy Atherosclerosis of [place] co ronary artery of [place] heart with stable angina pectoris 08/18/2012 DM (diabetes mellitus), type 2, uncontrolled 05/2012 Hypothyroidism 08/18/2012 Benign hypertension CKD (chronic kidney disease) stage 2, GFR 60-89 ml/min Resolved Problems Problem Noted Date Diagnosed Date Resolved Date Acute chest pain 09/06/2018 10/27/2018 Elevated troponin 09/06/2018 10/27/2018 Grade I diastolic dysfunction 07/06/2018 10/27/2018 Chest pain 04/04/2018 07/06/2018 CAD in [place] artery 07/02/2013 019 CHF (congestive heart failure) [...] history exists Medical Devices Implanted Type Area It Integration Architect Device Identifier Shelf Expiration Date Model / Serial / Lot Port-06/04/2018 Implanted:2018 (Quantity not on file) Port Procedures Procedure Name Priority Date/Time Associated Diagnosis Comments LIPID PANEL Routine 01/25/2019 2:00 AM CDT HEMOGLOBIN A1C Routine 05/03/2014 9:04 AM DIESEL MECHANIC CONSTRUCTION DM (diabetes mellitus), type 2, uncontrolled HTN (hypertension), benign from Last 3 Months or Most Recently Relevant to Health Maintenance Results * (ABNORMAL) LIPID PANEL (01/25/2019 2:00 AM CDT) CHOLESTEROL 133 <200 mg/dL 01/25/2019 2:42 AM CDT [facility] TRIGLYCERIDE 177(H) <150 mg/dL 01/25/2019 2:42 AM CDT [facility] HDL 33(L) 40 - 59 mg/dL 01/25/2019 2:42 AM CDT [facility] LDL CALCULATED 65 <100 mg/dL 01/25/2019 2:42 AM CDT [facility] NON-HDL CHOLESTEROL 100 <130 mg/dL 01/25/2019 2:42 AM CDT [facility] Blood Venipuncture / Unknown 01/25/2019 2:00 AM CDT 01/25/2019 2:15 AM CDT Narrative [facility] - 01/25/2019 2:42 AM CDT TOTAL [...] John Teixeira MD CHEMISTRY ORDERABLES Final Result [facility] CLIA# [id number] [address] [place] [address] * (ABNORMAL) HEMOGLOBIN A1C (05/03/2014 9:04 AM DIESEL MECHANIC CONSTRUCTION) HEMOGLOBIN A1C 9.0(H) 4.0 - 6.0 % [facility] Comment: This test was performed on a gokit VARIANT II instrument using HPLC methodology. Blood specimen (specimen) 05/03/2014 9:04 AM DIESEL MECHANIC CONSTRUCTION 05/03/2014 9:05 AM DIESEL MECHANIC CONSTRUCTION us Nicolasa Acosta HEAD CHARRER CHEMISTRY ORDERABLES Final R esult INTERFACE SYSTEM Refer to clinic/hospital department [facility] CLIA# [id number] [address] [place] [address] from Last 3 Months or Most Recently Relevant to Health Maintenance Insurance [place] [address] [place] [address] DUAL COMPLETE [facility] PPO D-SNP RX [employer] PLANS (INTERNAL) [facility] Internal Plans RX OPTUM RX Member Subscriber Plan / Payer (Ef fective for All Dates) Name:Rei Queen II Relation to Subscriber:Self Name:Rei Queen II Payer ID:Not on file Group ID:[id number] Type:RX Medicare Part D Address: [address] Advance Directives For more information, please contact: [phone] * Full Code (Latest Code Status on [...] 9:34 PM 04/10/2018 3:22 PM Care Teams Head Of Music Relationship Specialty Start Date End Date Kp Montanez DO [address] [address] PCP - General Internal Medicine 04/04/18
--- OUTSIDE RECORDS SUMMARY | 2024-12-12 07:54 | XMS_ITS | Encounter Summary ---
Author Organization [facility] Address [address] [place] [address] Phone Care Team Providers Care Automatic Machine Attendant Name Role Phone MontanezKp kevin Primary Care Provider [phone] Encounter Details Date Type Department Care Team (Late st Contact Info) Description 09/29/2024 [facility]CM [facility] [address] [place] [address] Ayad Monahan, STEAM BONE PRESS TENDER [address] [place] [address] Social History Tobacco Use Types [...] 09/29/2024 The patient was seen for a bmlb-vi-sabu visit as part of Transitional Care Management services. Attending Personal Consultant: RITA MENENDEZ Dialysis Location: [facility] [...] 98.1*F Current Dialysis Vitals BP Sit: 159/81 AP/LEATHER SCRAPER: 198/162 Pulse: 86 CARE COORDINATION No follow-up appointments noted. COMMENTS: no new referrals. EDUCATION Education relevant to the discharge diagnosis provided to the patient or caregiver IMPRESSION & PLAN COMMENTS: 1.hemodialysis access problem; fistulogram completed. Now working well. 2. ESRD on HD: Continue HD TTS. VISIT DIAGNOSES CPT Code 32580 - High complexity, seen within 7 days [...] on filedocumented in this encounter Care Teams Automatic Machine Attendant Relationship Specialty Start Date End Date Kp Montanez DO [address] [place] [address] PCP - General Internal Medicine 01/07/23 documented as of this encounter
--- OUTSIDE RECORDS SUMMARY | 2024-12-12 07:54 | XMS_ITS | Patient Health Record ---
Author Organization [facility] Address [address] [place] [address] Care Team Providers Care Roll Examiner Name Role Phone Cristina RITTER, Dez Primary Care Provider UnavailElizabeth Jon Unavailable [phone] Pee Castaneda MD Unavailable Unavailable Ray Sherman Unavailable [phone] Shelley Llanes Unavailable [phone] Migration, Provider Unavailable Unavailable Ajit Silver Unavailable [phone] Allergies Allergen (clinical drug ingredient) Drug/Non Drug [...] Notes Urine Confirmation Panel (in strument) - [id number] Reviewed date:09/01/2024 08:59:18 AM Interpretation: Performing Lab: [...] Administration. Urine Drug Screen (cup read) - 91001 Reviewed date:11/05/2024 02:20:09 PM Interpretation: Performing Lab: Notes/Report: BUP + OPI + OXY + Urine Confirmation Panel (in strument) - [id number] Reviewed date:11/10/2024 02:00:57 PM Interpretation: Performing Lab: [...] the U.S. Food and Drug Administration. Gabapentin >81271 <225 ng/mL > This test was developed [...] Provider Speciality Family Med icine Referred Organization [facility] Referred Provider Ray Sherman Referred Address [address] [facility] [place],[address] Referred Provider Specialty Gastroentero logy General Notes Taisha Godoy 09/22 04:14:39 PM >supervisor finishing Referral Priority Routine Reason chronic back pain gr eater than three months duration Diagnosis 1 Other chronic pain ( G89.29) Referring Provider First Name Kp Referring Provider Last Name Lisseth Referring Provider Speciality Internal M edicine Referred Organization [facility] Referred Provider Eran Block Referred Address [address] [facility] [facility],[address] Referred Provider Specialty Pain Medicin e General [...] W/U Status Risk Notes Problem Chronic pain (68817867) Other chronic pain (G89.29) Active confirmed Problem Chronic pain syndrome (192445658) Chronic pain syndrome (G89.4) Active confirmed Problem Cervical radiculopathy (45222461) Cervical radiculopathy (M54.12) Active confirmed Problem Lumbar radiculopathy (048410272) Lumbar radiculopathy (M54.16) Active confirmed Problem Long-term current use of drug therapy (368743564) Long-term use of high-risk medication (Z79.899) Active confirmed Problem Abnormal gait (14228095) Abnormality of gait and mobility (R26.9) Active confirmed Problem Atherosclerotic heart disease of [place] coronary artery without angina pectoris (246514553014727 ) Atherosclerotic heart disease of [place] coronary artery without angina pectoris (I25.10) Active confirmed [id number] Description:Patricia nary arteriosclerosis Problem Presence of coronary angioplasty implant and graft (Z95.5) Active confirmed [id number] om ed Description:Hist ory of placement of stent for coronary artery disease Problem Essential hypertension (28754559) Essential primary hypertension (I10) Active confirmed [id number] ed Description:Holger gn essential hypertension Vital Signs Heart Rate 82 /min 02/19/2024 Temperature 97.5 degrees Fahrenheit 02/19/2024 Respiratory Rate 18 /min 02/19/2024 Height-cm 165.1 cm 11/05/2024 Oximetry 93 % 02/19/2024 Weight-kg 90.72 kg 11/05/2024 Height 65 in 11/05/2024 Weight 200 lbs 11/05/2024 BMI 33.28 kg/m2 11/05/2024 Encounters Encounter Location Date Provider Diagnosis [facility] [address] [address] 11/05/2024 Elizabeth Parker Chronic pain syndrom e G89.4 ; Cervical radiculopathy M54.12 ; Lumbar radiculopathy M54.16 ; Atherosclerotic heart disease of [place] coronary artery without angina pectoris I25.10 and Long-term use of high-risk medication Z79.899 [facility] [address] [address] 09/02/2024 Ajit Silver Chronic pain syndrom e G89.4 ; Lumbar radiculopathy M54.16 ; Atherosclerotic heart disease of [place] coronary artery without angina pectoris I25.10 and Long-term use of high-risk medication Z79.899 [facility] [address] [address] 06/24/2024 Ajit Silver Chronic pain syndrom e G89.4 ; Lumbar radiculopathy M54.16 ; Atherosclerotic heart disease of [place] coronary artery without angina pectoris I25.10 ; Abnormality of gait and mobility R26.9 and Long-term use of high-risk medication Z79.899 [facility] [address] [place] [address] 02/19/2024 Shelley Llanes Rectal bleeding K62. 5 [facility] [address] [address] 07/15/2024 Ajit Silver Chronic pain syndrom e G89.4 ; Lumbar radiculopathy M54.16 ; Atherosclerotic heart disease of [place] coronary artery without angina pectoris I25.10 and Long-term use of high-risk medication Z79.899 [facility] [address] [place] [address] 03/09/2024 [facility] [address] [place] [address] 02/25/2024 [facility] [address] [place] [address] 02/24/2024 [facility] [address] [place] [address] 02/19/2024 [facility] [address] [place] [address] 01/16/2024 Shelley Llanes [facility]rated[facility]Facility 0 0 03/15/2024 Provider Migration [facility] 0 0 03/14/2024 Provider Migration [facility] [address] [address] 11/05/2024 Ajit Silver Lumbar radiculopathy M54.16 Assessments [...] effects are noted. Last UDS and [place] VIDEOTAPE OPERATOR reviewed today. Patient is advised that best [...] infarction and pneumonia and was in the [facility] for a bit of time. [...] effects are noted. Last UDS and [place] VIDEOTAPE OPERATOR reviewed today. Patient is advised that best [...] - M54.16) 07/15/2024 Atherosclerotic heart disease of [place] coronary artery without angina pectoris (ICD-10 - I25.10) [id number] Description:Damon ry arteriosclerosis 06/24/2024 Atherosclerotic heart disease of [place] coronary artery without angina pectoris (ICD-10 - I25.10) [id number] Description:Damon ry arteriosclerosis 07/15/2024 Long-term use of [...] testing policy. 09/02/2024 Atherosclerotic heart disease of [place] coronary artery without angina pectoris (ICD-10 - I25.10) [id number] Description:[place] ry arteriosclerosis 11/05/2024 Atherosclerotic heart disease of [place] coronary artery without angina pectoris (ICD-10 - I25.10) [id number] Description:[place]amon ry arteriosclerosis 06/24/2024 Abnormality of gait [...] Pending Test Test Name Order Date Diagnostic Colonoscopy-[id number] 02/19/2024 Next Appt Details Provider Name:Elizabeth verduzco, 01/07/2025 02:20:00 PM, [address] [place], [address], Insurance Providers Payer Name Payer Address Payer Phone Subscriber Number Group Number Insured Name Patient Relationship to Insured Coverage Start Date Coverage End Date [employer] Medicare Advantage - PPO [address] [address] [place] [address] [phone] [id number] Bret SMITHA Self - patient is the insured UHC Medicare Dual Complete PPO [address] [address] [place] [address] [id number] SMITHA Downey Self - patient is the insured [place] Medicaid [address] [place] [address] [id number] SMITHA Downey Self - patient is the insured Medical (General) History Medical History History ICD Code Coronary artery disease Arthritis Diabetes Hypertension Anxiety Congestive heart failure Depression Hyperlipidemia Hypothyroidism kidney stones myocardial infarction renal failure sleep apnea Surgical History Surgery Date(Month/Year) cardiac pacemaker/defibrillator 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
--- NOTE | 2024-12-12 07:55 | XRR_ITS ---
PROCEDURE INFORMATION: Exam: XR Chest Exam date and time: 12/12/2024 8:03 AM Age: 54 years old Clinical indication: Cough and dyspnea; Additional info: Dyspnea/cough TECHNIQUE: Imaging protocol: Radiologic exam of the chest. Views: 1 view. COMPARISON: CR XR chest 1V portable [id number] 12/11/2024 12:41 PM FINDINGS: Tubes, catheters and devices: Left chest wall MediPort with catheter tip in the SVC. Right chest wall ICD. Lungs: Mild left basilar atelectasis, similar to prior. No focal consolidation. Pleural spaces: No pleural effusion. No pneumothorax. Heart/Mediastinum: Cardiomediastinal silhouette is normal. Bones/joints: No acute abnormality. Median sternotomy wires. XR/XR chest 1V portable [id number] IMPRESSION: Mild left basilar atelectasis. No focal consolidation.
--- NOTE | 2024-12-12 07:55 | ECG_ITS ---
[facility] Test Date: 2024-12-12 Pat Name: Rei Queen Department: Room: Gender: Male Healthcare Risk Control Consultant: : 1970 Requested By: Timo Hart Order Number: [id number] Becky MD: Garrison Mckinney M.D. Measurements Intervals [place] Rate: 100 P: 108 OR: 191 QRS: 237 QRSD: 110 T: 105 QT: 353 QTc: 456 Interpretive Statements SINUS TACHYCARDIA ARM LEADS REVERSED [INVERTED P AND QRS IN I] Compared to ECG 12/11/2024 10:59:24 Sinus rhythm no longer present Left-axis deviation no longer present Myocardial infarct finding no longer present ST (T wave) deviation no longer present Electronically Signed On 12-12-2024 08:40:44 CDT by Garrison Mckinney M.D. [id number]
--- OUTSIDE RECORDS SUMMARY | 2024-12-12 07:55 | XMS_ITS | Encounter Summary ---
Author Organization [facility] Address [address] [facility] [address] [place] [address] Phone Care Team Providers Care Tin Cutter Name Role Phone Kp Montanez DO Primary Care Provider [phone] Reason for Visit * Reason Comments Med Refill Encounter Details Date Type Department Care Team (Late st Contact Info) Description 05/08/2021 Refill [facility] [address] [facility] [address] [place] [address] Ghazal Schmitt NP [address] [facility] [address] [place] [address] Social History Tobacco Use Types [...] on filedocumented in this encounter Care Teams Tin Cutter Relationship Specialty Start Date End Date Kp Montanez DO [address] [place] [address] PCP - General Internal Medicine 01/07/23 documented as of this encounter
--- OUTSIDE RECORDS SUMMARY | 2024-12-12 07:55 | XMS_ITS | Clinical Summary ---
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 9 Active atorvastatin (LIPITOR) 40 mg tablet [...] sugar). 4 Active naloxone (NARCAN) 4 mg/spray [place], Non-Aerosol EMERGENCY USE ONLY: Administer 1 spray (4 mg) in one nostril one time. May repeat in alternating nostrils every 2-3 min until responsive or EMS arrives. 2 Each 3 5 Active sacubitriL-vals tommy (ENTRESTO) 24-26 mg Tablet Take 1 Tablet by mouth daily. 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 MOTOR ASSEMBLER 5 Active HYDROcodone-fede taminophen (NORCO) 5-325 mg [...] (10/17/2022): Added automatically from request for surgery [id number] Scrotal pain 02/07/2021 Adenoma of both adrenal glands 05/24/2019 Overview (10/17/2022): Seen on CT abd at [facility] 10/[address] abd at [facility] 10/2018 Diverticulosis 05/24/2019 History of pulmonary [...] Overview (11/24/2020): secondary to fasciotomy Atherosclerosis of [place] co ronary artery of [place] heart with stable angina pectoris 08/18/2012 DM [...] Type Department Care Team Description 12/04/2024 Telephone [facility] Vascular Surgery [place] [address] [place] [address] Shannan Goodwin MD Question 11/13/2024 3:30 PM CDT Office Visit [facility] Vascular Surgery [place] [address] [place] [address] Shannan Goodwin MD ESRD (end stage renal disease) ([facility]) (Primary Dx); AV graft stenosis, subsequent encounter 11/09/2024 Telephone [place] [address] [facility] [address] [place] [address] Stephani Keen MD Severe pain in right arm/shoulder 11/03/2024 11:02 AM CDT - 11/03/2024 11:59 PM CDT Hospital Encounter [facility] Interventional Radiology [address] [address] Yesi Madison MD Birlew, Ryan Avery, MD Discharge Disposition: Home or Self Care 11/02/2024 Telephone [facility] Interventional Radiology [address] [address] Sabra Barr RN Procedure (Instructed patient for scheduled procedure with sedation on 11/03/24. Check at the [facility] entrance at 1230. Instructed they need to have a pile driver operator and someone to stay with them for [...] small sip of water. /) 11/02/2024 Telephone [facility] [address] [facility] [address] [place] [address] Stephani Keen MD PT needs to cancel Pacemaker appointment 11/02/2024 Telephone [facility] Vascular Surgery [place] [address] [place] [address] Shannan Goodwin MD Appointment Notification 10/30/2024 12:51 PM CDT - 10/30/2024 11:59 PM CDT Hospital Encounter [facility] Dialysis [address] [address] Discharge Disposition: Home or Self Care 10/30/2024 11:30 AM CDT - 10/30/2024 11:59 PM CDT Hospital Encounter [facility] Interventional Radiology [address] [place] [address] [place] [phone] Yesi Madison MD Birlew, Ryan Avery, MD Discharge Disposition: Home or Self Care 10/28/2024 Telephone [facility] Vascular Surgery [address] [place] [phone] Shannan Goodwin MD Appointment Verification 10/27/2024 [facility] Vascular Surgery [address] [phone] Shannan Goodwin MD Question 10/20/2024 External Device Data STL ABSTRACTION Provider, Abstract 10/19/2024 Telephone [facility] Vascular Lab and Vein Center[address] [phone] Shannan Goodwin MD Information 09/28/2024 [facility] Vascular Surgery [address] [phone] Shannan Goodwin MD Needs Appointment 09/24/2024 [place] [id number] [facility] [address] [place] [phone] Marla Rodriges FNP Appointment Notification 09/22/2024 External Device Data STL ABSTRACTION Provider, Abstract 09/19/2024 2:43 PM CDT - 09/24/2024 4:56 PM CDT Hospital Encounter [address] [facility] [address] [place] [phone] Lucia Hernandez DO Abbas, Muhammad Khalid, MD Bandaru, Kiran Babu, MD Neupane, Gagan, MD AV fistula occlusion Discharge Disposition: Home or Self Care 09/19/2024 10:47 AM CDT - 09/19/2024 1:03 PM CDT Emergency [facility] Emergency Medicine [address] [place] [phone] Joesph Larios MD Vascular graft occlusion, initial encounter (Primary Dx) Discharge Disposition: Home or Self Care 09/19/2024 12:15 AM CDT - 09/19/2024 11:59 PM CDT Hospital Encounter [facility] Emergency Medical Services [place] [address] [place] [address] Ambulance, [facility] Discharge Disposition: [facility] 09/19/2024 Travel from Last 3 Months Immunizations Immunization Administration Dates Next Due (ADACEL/BOOSTRIX)(10 YR UP) TDAP VACCINE, 0.5ML, IM 05/30/2021 (HEPLISAV-B)(18 YR UP) HEPAT ITIS B VACCINE CPG-ADJUVANTED (HEPB-CPG) 2-4 DOSE, IM 10/30/2022,08/25/2022,07/21/2022,06/23 (PNEUMOVAX 23)(50 YRS UP) PN EUMOCOCCAL POLYSACCHARIDE (PPV23) 0.5 ML, IM 09/18/2022,05/25/2019 (PREVNAR 20)(6 WKS UP) PNEUM OCOCCAL CONJUGATE VACCINE 20-VALENT (PCV20), POLYSACCHARIDE [id number] CONJUGATE, ADJUVANT 0.5 ML (PF) IM 06/26/2022 [...] on file 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 Gender Identity Not on file Sexual Orientation [...] Description 02/12/2025 3:30 PM CDT Office Visit [facility] Vascular Surgery [place] [address] [place] [address] Shannan Goodwin MD [address] [place] [address] Health Maintenance Due Date Last [...] 08/25/2022, 07/21/2022, Additional history exists COVID-19 Vaccine ( - 2023-2 5 season) 2024 11/05/2020, 10/08/2020 LDL CHOLESTEROL ANNUAL 05/02/2024 3, 01/25/2019, 09/06/2018, Additional history exists [place] Preventative Visit/Annual Wellness Visit 05/20/2024 INFLUENZA VACCINE (#1) 2024 4, 06/14/2022, 03/01/2021, Additional history exists DIABETES HBA1C Q 6 MONTHS 04/23/20252024, 06/27/2024, 05/02/2023, Additional history exists DTAP/TDAP/TD VACCINES (2 - T d or Tdap) 05/30/2031 05/30/2021, 05/30/2021 ZOSTER VACCINE Completed 08/10/2020, 06/06/2020 Medical Devices Implanted Type Area Printing Gray Cloth Tender Device Identifier Shelf Expiration Date Model / Serial / Lot Clip Ligating Horizon Red [id number] - [facility] - [id number] Implanted:Qty : 1 on 09/28/2022 by Guero Felder MD at [facility] Clip Left: Arm TELE[employer] INC [id number] 12/25/2026 [id number] / / [id number] Clip Ligating Horizon Med Ti 654504 - Csc - [id number] Implanted:Qty : 1 on 09/28/2022 by Guero Felder MD at [facility] Clip Left: Arm TELEFLEX- WECK CLOSURE SYS [id number] 10/08/2026 [id number] / / [id number] Clip Ligating Horizon Red 191416 - [facility] - [id number] Implanted:Qty : 1 on 11/14/2022 by Jimmy Anaya MD at [facility] Clip Left: Arm TELE[employer]LEX INC [id number] 12/25/2026 / / [id number] Clip Ligating Horizon Med Ti 281859 - Csc - [id number] Implanted:Qty : 1 on 11/14/2022 by Jimmy Anaya MD at [facility] Clip Left: Arm TELEFLEX- WECK CLOSURE SYS [id number] 02/12/2027 / / [id number] Closure Perclose Prostyle Sut Mediate 94668-11 - [id number] Implanted:Qty : 1 on 05/03/2023 by Jay Bales MD at [facility] Closure Device Right: Groin SALAS- VASC DEVICE 01/17/2025 02688-3 3 / / [id number] Dev Closure Angioseal 6fr Vip 927258 - [id number] Implanted:Qty : 1 on 05/03/2023 by Jay Bales MD at [facility] Closure Device Right: Groin [facility]AS [facility] 10/11/2023 [id number] / / [id number] Dev Closure Angioseal 6fr Vip 753468 - [id number] Implanted:Qty : 1 on 06/19/2024 by Prince Barfield MD at [facility] Closure Device Right: Groin TERUMO- CARDIOVASC SYS 01/13/2025 [id number] / / [id number] Dev Icd Acticor 7 Vr-T Dx Df4 Hybrid 185479 - [id number] Implanted:Qty : 1 on 07/23/2024 by Stephani Keen MD at [facility] Defibrillator Right: Chest Wall [employer] INC [id number] 05/19/2026 [id number] / [id number] / Graft Vasc Propaten 4-1dwg89mo [id number] - [id number] Implanted:Qty : 1 on 09/28/2022 by Guero Felder MD at [facility] Graft Left: Arm [employer] INC [id number] 04/02/2026 [id number] / [id number] 2026-03 Hemostatic Surgicel 1x2in 1960 - [id number] Implanted:Qty : 1 on 09/28/2022 by Guero Felder MD at [facility] Hemostatic Left: Arm J&J- ETHIC[employer] INC [id number] 02/16/20251960 / / [id number] Hemostatic Surgicel 1x2in 1960 - [id number] Implanted:Qty : 1 on 09/28/2022 by Guero Felder MD at [facility] Hemostatic Left: Arm J&J- ETHIC[employer] INC [id number] 12/17/20241960 / / [id number] Lead Endocardial Pamira S Dx 65/15 Rv W Atr Sensing [id number] - [id number] Implanted:Qty : 1 on 07/23/2024 by Stephani Keen MD at [facility] Lead Right: Chest Wall [employer] INC [id number] 05/19/2026 [id number] / [id number] / Power Port Implanted:(Qu antity not on file) Explanted:(Qu antity not on file) Port Port- 9 Implanted: (Quantity not on file) Port Suture Perchik 2 Button Pouch [id number] - [id number] Implanted:Qty : 1 on 08/23/2023 at [facility] Screw [employer]GI[employer] INC [id number] / / Description:This is Not an I mplant Stent Implanted:(Qu antity not on file) Explanted:(Qu antity not on file) Stent Stent Synergy Xd 3.5x16mm Evrlms Elut [id number] - [id number] Implanted:Qty : 1 on 05/03/2023 by Jay Bales MD at [facility] Stent Left: Coronary [employer] PATRICK 01/01/2025 [id number] / / [id number] Stent Viabahn Hep 8mmx7.5xcm [id number] - [id number] Implanted:Qty : 1 on 10/23/2023 by Jimmy Anaya MD at [facility] Stent Left: Arm [employer] [id number] 12/23/2025 [id number] / [id number] / Procedures Procedure Name Priority Date/Time Associated Diagnosis Comments IR FISTULOGRAM Routine 11/03/2024 1:16 PM CDT ESRD (end stage renal disease) (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 DIAGNOSIS: ESRD (end stage renal disease) ([facility]). Medications: Fentanyl and versed were titrated to effect. Moderate (conscious) sedation for this procedure was performed with continuous physician supervision. Medical history, physical exam, drug dosages, routes of drug administration, monitoring data, and precise times of service are documented in the medical record on the [facility]-approved form, 'Sedative/Analgesic Administration for Diagnostic and [...] transitional dilator was exchanged for a 6 Micronesian vascular sheath. Angioplasty of recurrent moderate stenosis [...] was obtained and exchanged for a 6 Micronesian sheath. A Glidewire was advanced retrograde into [...] flows.. DIAGNOSIS: ESRD (end stage renal disease) ([facility]). Medications: Fentanyl and versed were titrated to effect. Moderate (conscious) sedation for this procedure was performed with continuous physician supervision. Medical history, physical exam, drug dosages, routes of drug administration, monitoring data, and precise times of service are documented in the medical record on the [facility]-approved form, 'Sedative/Analgesic Administration for Diagnostic and [...] transitional dilator was exchanged for a 6 Micronesian vascular sheath. Angioplasty of recurrent moderate stenosis [...] was obtained and exchanged for a 6 Micronesian sheath. A Glidewire was advanced retrograde into [...] - 99 mg/dL 09/24/2024 12:46 PM CDT [facility] SPECIMEN SOURCE, GLUCOSE POC Capillary 09/24/2024 12:46 PM CDT [facility] Blood, whole 09/24/2024 12:4 6 PM CDT 09/24/2024 1:21 PM CDT Cas Barreto MD POINT OF CARE TESTING Final Res ult Performing Organization Address City/State/[facility] Co de Phone Number [facility] CLIA # [id number] [address] [place] [address] * HEMODIALYSIS (09/24/2024 7:53 AM CDT) Narrative Yesi Madison MD - 09/24/2024 7:53 AM CDT Yesi Madison MD 09/24/2024 8:22 AM [facility] - Procedure Note Primary Intramural Director: Dr. Yesi Madison PROCEDURE: Intermittent Hemodialysis INDICATION: [...] Plan: ESRD: on hemodialysis today then per [facility] outpatient schedule. Will see on HD days while inpatient. He was orthostatic yesterday so will have minimal ultrafiltration with rinse back. Yesi Madison MD [facility] 09/24/24, 7:54 AM us Pamela Vann Deerton DO DIALYSIS ORDERABLES Edited Resu lt - Final * (ABNORMAL) CBC WITH DIFFERENTIAL (09/24/2024 1:23 AM CDT) Only the most recent of5 resultswithin the time period is included. WBC 7.3 4.8 - 10.8 K/uL 09/24/2024 1:37 AM [facility] RBC 3.24(L) 4.60 - 6.20 M/uL 09/24/2024 1:37 AM [facility] HEMOGLOBIN 10.3(L) 14.0 - 18.0 g/dL 09/24/2024 1:37 AM [facility] HEMATOCRIT 30.2(L) 41.0 - 53.0 % 09/24/2024 1:37 AM [facility] MCV 93.2 84.0 - 103.0 fL 09/24/2024 1:37 AM [facility] MCH 31.8 27.0 - 34.0 pg 09/24/2024 1:37 AM [facility] MCHC 34.1 30.0 - 35.0 g/dL 09/24/2024 1:37 AM [facility] PLATELETS 207 140 - 440 K/uL 09/24/2024 1:37 AM [facility] MPV 9.3 8.9 - 12.8 fL 09/24/2024 1:37 AM CDT [facility] RDW 15.5(H) 11.0 - 14.5 % 09/24/2024 1:37 AM [facility] RDW-STDEV 51.8 37.0 - 54.0 fL 09/24/2024 1:37 AM [facility] NEUTROPHILS 60 42 - 75 % 09/24/2024 1:37 AM [facility] LYMPHOCYTES 27 24 - 44 % 09/24/2024 1:37 AM T [facility] MONOCYTES 9 2 - 10 % 09/24/2024 1:37 AM [facility] EOSINOPHILS 3 0 - 7 % 09/24/2024 1:37 AM [facility] BASOPHILS 1 0 - 1 % 09/24/2024 1:37 AM [facility] IMMATURE GRANULOCYTES 0 0 - 2 % 09/24/2024 1:37 AM [facility] NEUTROPHIL ABSOLUTE 4.37 2.00 - 8.00 K/uL 09/24/2024 1:37 AM [facility] LYMPHOCYTE ABSOLUTE 1.98 1.20 - 4.00 K/uL 09/24/2024 1:37 AM [facility] MONOCYTE ABSOLUTE 0.65(H) 0.10 - 0.60 K/uL 09/24/2024 1:37 AM [facility] EOSINOPHIL ABSOLUTE 0.22 0.00 - 0.70 K/uL 09/24/2024 1:37 AM [facility] BASOPHILS ABSOLUTE 0.04 0.00 - 0.20 K/uL 09/24/2024 1:37 AM [facility] IMMATURE GRANULOCYTES ABSOLUTE 0.03 0.00 - 0.10 K/uL 09/24/2024 1:37 AM [facility] SMEAR REVIEWED: NA - Not Applicable 09/24/2024 1:37 AM [facility] Blood Venipuncture / Unknown 09/24/2024 1:23 AM CDT 09/24/2024 1:31 AM CDT us Cas Barreto MD HEMATOLOGY ORDERABLES Final Res ult [facility] DENITA # [id number] [address] [facility] [place] [address] * (ABNORMAL) BASIC METABOLIC PANEL (09/24/2024 1:23 AM CDT) Only the most recent of5 resultswithin the time period is included. SODIUM 134(L) 136 - 145 mmol/L 09/24/2024 2:06 AM T [facility] POTASSIUM 3.9 3.5 - 5.1 mmol/L 09/24/2024 2:06 AM T [facility] Comment:Moderate hemolysis p resent. Can cause significant falsely elevated result. Redraw if indicated. CHLORIDE 96(L) 98 - 107 mmol/L 09/24/2024 2:06 AM T [facility] CO2 26 22 - 29 mmol/L 09/24/2024 2:06 AM T [facility] CALCIUM 8.5(L) 8.6 - 10.0 mg/dL 09/24/2024 2:06 AM T [facility] BUN 35(H) 6 - 20 mg/dL 09/24/2024 2:06 AM [facility] CREATININE 4.10(H) 0.67 - 1.17 mg/dL 09/24/2024 2:06 AM T [facility] GLUCOSE 133(H) 74 - 99 mg/dL 09/24/2024 2:06 AM [facility] GFR 16(L) >=60 mL/min/1. 73 sq meter 09/24/2024 2:06 AM [facility] Comment:eGFR calculated with 2020 CKD-EPI equation. Vegetarian diet, extremely high or low muscle mass, and may affect results. Cystatin C with Glomerular Filtration Rate is a suitable alternative for these patients. ANION GAP 12 9 - 20 mmol/L 09/24/2024 2:06 AM CDT [facility] Blood Venipuncture / Unknown 09/24/2024 1:23 AM CDT 09/24/2024 1:31 AM CDT Cas Barreto MD CHEMISTRY ORDERABLES Final Resu lt Performing Organization Address [facility] Co de Phone Number [facility] CLIA # [id number] [address] [address] * (ABNORMAL) TROPONIN (09/23/2024 3:22 PM CDT) TROPONIN T, 5TH GEN 42(H) <=15 ng/L 09/23/2024 4:17 PM CDT [facility] Blood Venipuncture / Unknown 09/23/2024 3:22 PM CDT 09/23/2024 3:46 PM CDT Narrative [facility] - 09/23/2024 4:17 PM CDT Troponin elevated. Cas Barreto MD CHEMISTRY ORDERABLES Final Resu lt Performing Organization Address [facility] Co de Phone Number 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1970 Requested By: Order Number: [id number] Becky MD: Erasmo Reese Measurements Intervals [place] Rate: 79 P: 42 WA: 182 QRS: 23 QRSD: 112 T: 121 QT: 394 QTc: 451 Interpretive Statements Normal sinus rhythm Anterior infarct, age undetermined Abnormal ECG Electronically Signed On 09-23-2024 20:04:59 CDT by Erasmo Reese Procedure Note Erasmo Reese MD - 09/23/[address] [address] Test Date: 2024-09-23 Pat Name: SMITHA QUEEN Department: 12 Room: [address] [place] [address] 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1970 Requested By: Order Number: [id number] Reading MD: Erasmo Reese Measurements Intervals [place] Rate: 79 P: 42 WA: 182 QRS: 23 QRSD: 112 T: 121 QT: 394 QTc: 451 Interpretive Statements Normal sinus rhythm Anterior infarct, age undetermined Abnormal ECG Electronically Signed On 09-23-2024 20:04:59 CDT by Erasmo Reese us Cas Barreto MD ECG ORDERABLES Final Result INTERFACE SYSTEM Refer to clinic/hospital department * HEMODIALYSIS (09/22/2024 12:36 PM CDT) Yesi Hernandez MD - 09/22/2024 12:36 PM CDT Yesi Madison MD 09/22/2024 1:21 PM [facility] - Procedure Note Primary Intramural Director: Dr. Yesi Madison PROCEDURE: Intermittent Hemodialysis INDICATION: [...] HD days while inpatient. Zoey Johnson NP [facility] 09/22/24, 12:36 PM Pamela Sevilla DO DIALYSIS ORDERABLES Final Resul t * HEMODIALYSIS (09/21/2024 4:14 PM CDT) Narrative Zita Gilbert MD - 09/21/2024 4:14 PM CDT Zita Gilbert MD 09/21/2024 7:36 PM [facility] - Procedure Note Primary Intramural Director: Dr. Yesi Madison PROCEDURE: Intermittent Hemodialysis INDICATION: [...] HD days while inpatient. Zoey Johnson NP [facility] 09/21/24, 4:15 PM Windy Chirinos ADMINISTRATIVE TECH DIALYSIS ORDERABLES Final R esult * US DUPLEX ARTERIAL ARM LEFT (09/19/2024 3:26 PM CDT) Anatomical Region Laterality Modality Upper Extremity Ultrasound 09/19/2024 3:04 PM CDT Narrative 09/19/2024 4:28 PM CDT [facility] Cardiovascular Services Noninvasive Vascular Laboratory [facility] [place] [address] Noninvasive Vascular Lab Upper Extremity Hemodialysis Access Follow-up Evaluation Patient: Smitha Queen Junior Study ID: US DUPLEX ARTERI Gender: M : 1970 Age: 54 Room: 15 Height: 165.1cm Weight: 93.8kg BSA: 2.11m^2 Pt status: Outpatient Study Date: 09/19/2024 Study Time: 03:04:00 PM BSA: 2.11m^2 Ordering: Lucia Hernandez Interpreting:Erasmo Berg Cutlet Maker Pork: Coby Chau RVT Indications: Concern for thrombosed [...] the supine position. Image quality was good. [facility] Vascular Lab is accredited with the Intersocietal Commission for the Accreditation of Vascular Laboratories (ICAVL) Prepared and Electronically Authenticated Erasmo Berg 09/19/2024 16:28 Procedure Note Erasmo Berg MD - 09/19/2024 [facility] Cardiovascular Services Noninvasive Vascular Laboratory [address] [place] [address] Noninvasive Vascular Lab Upper Extremity Hemodialysis Access Follow-up Evaluation Patient: Smitha Queen Junior Study ID: US DUPLEX ARTERI Gender: M : 1970 Age: 54 Room: 15 Height: 165.1cm Weight: 93.8kg BSA: 2.11m^2 Pt status: Outpatient Study Date: 09/19/2024 Study Time: 03:04:00 PM BSA: 2.11m^2 Ordering: Lucia Hernandez Interpreting:Erasmo Berg Cutlet Maker Pork: Coby Chau RVT Indications: Concern for thrombosed [...] the supine position. Image quality was good. [facility] Vascular Lab is accredited with theIntersocietal Commission for the Accreditation of Vascular Laboratories (ICAVL) Prepared and Electronically Authenticated Erasmo Berg Confirmed 09/19/2024 16:28 us Lucia Hernandez DO US ORDERABLES Final Result * (ABNORMAL) PROTIME-INR (09/19/2024 3:11 PM CDT) Only the most recent of2 resultswithin the time period is included. PROTIME 14.8(H) 12.6 - 14.6 Seconds 09/19/2024 3:45 PM CDT [facility] INR 1.1 0.8 - 1.2 09/19/2024 3:45 PM CDT [facility] Blood Venipuncture / Unknown 09/19/2024 3:11 PM CDT 09/19/2024 3:22 PM CDT Narrative [facility] - 09/19/2024 3:45 PM CDT Expected Values for INR: DVT/PE Goal INR 2.5; range 2.0 - 3.0 Valve Replacement Tissue Goal INR 2.5; range 2.0 - 3.0 Valve Replacement Mechanical Goal INR 3.0; range 2.5 - 3.5 POST-TN Goal INR 2.5; range 2.0 - 3.0 or Goal INR 3.0; range 2.5 - 3.5 Atrial Fibrillation Goal INR 2.5; range 2.0 - 3.0 Ischemic Stroke Goal INR 2.5; range 2.0 - 3.0 us Lucia Hernandez DO HEMATOLOGY ORDERABLES Final Resu lt Performing Organization Address City/[facility]/ZIP Co de Phone Number [facility] CLIA # [id number] [address] [address] * TYPE AND SCREEN (09/19/2024 3:11 PM CDT) ABO GROUP O 09/19/2024 4:00 PM CDT [facility] RH (D) TYPE Negative 09/19/2024 4:00 PM CDT [facility] ANTIBODY SCREEN Negative 09/19/2024 4:00 PM CDT [facility] Blood Venipuncture / Unknown 09/19/2024 3:11 PM CDT 09/19/2024 3:22 PM CDT us Lucia Hernandez DO BLOOD BANK ORDERABLES Edited Res ult - Final Performing Organization Address [facility] [facility] Co de Phone Number [facility] CLIA#[id number] Formerly [facility] [place] [address], [place] [phone] * PTT (09/19/2024 11:29 AM CDT) PTT 30.1 25.8 - 34.0 seconds 09/19/2024 11:57 AM CDT [facility] Blood BLOOD SPECIMEN / Unknown Collection / Unknown 09/19/2024 11:29 AM CDT 09/19/2024 11:38 AM CDT Joesph Larios MD HEMATOLOGY ORDERABLES Final Res ult Performing Organization Address City/[facility]/ZIP Co de Phone Number [facility] CLIA # [id number] [address] [place] [address] * (ABNORMAL) D-DIMER (09/19/2024 11:29 AM CDT) D-DIMER QUANT 1.25(H) <0.50 ug/mL FEU 09/19/2024 12:00 PM CDT [facility] Blood BLOOD SPECIMEN / Unknown Collection / Unknown 09/19/2024 11:29 AM CDT 09/19/2024 11:38 AM CDT Narrative [facility] - 09/19/2024 12:00 PM CDT D-Dimer assay [...] ORDERABLES Final Res ult Performing Organization Address City/[facility]/ZIP Co de Phone Number [facility] CLIA # [id number] [address] [place] [address] * C-REACTIVE PROTEIN (09/19/2024 11:29 AM CDT) Pathologist [facility] CRP 4.7 <5.0 mg/L 09/19/2024 12:00 PM CDT [facility] Blood BLOOD SPECIMEN / Unknown Collection / Unknown 09/19/2024 11:29 AM CDT 09/19/2024 11:38 AM CDT us Joesph Larios MD CHEMISTRY ORDERABLES Final Resu lt [facility] CLIA # [id number] [address] [place] [address] * (ABNORMAL) BRAIN NATRIURETIC PEPTIDE, BNP OR PROBNP (09/19/2024 11:29 AM CDT) PROBNP, N TERMINAL 1,241(H) 0 - 125 pg/mL 09/19/2024 12:00 PM CDT [facility] Comment: INTERPRETIVE COMMENT based on diagnosis: Diagnostic [...] ORDERABLES Final Resu lt Performing Organization Address City/[facility] Co de Phone Number [facility] CLIA # [id number] [address] [place] [address] * MAGNESIUM LEVEL (09/19/2024 11:29 AM CDT) MAGNESIUM 1.9 1.6 - 2.6 mg/dL 09/19/2024 12:00 PM CDT [facility] Blood BLOOD SPECIMEN / Unknown Collection / Unknown 09/19/2024 11:29 AM CDT 09/19/2024 11:38 AM CDT us Joesph Larios MD CHEMISTRY ORDERABLES Final Resu lt [facility] CLIA # [id number] [address] [place] [address] * (ABNORMAL) COMPREHENSIVE METABOLIC PANEL (09/19/2024 11:29 AM CDT) SODIUM 138 136 - 145 mmol/L 09/19/2024 12:00 PM [facility] POTASSIUM 4.4 3.5 - 5.1 mmol/L 09/19/2024 12:00 PM [facility] CHLORIDE 99 98 - 107 mmol/L 09/19/2024 12:00 PM [facility] CO2 29 22 - 29 mmol/L 09/19/2024 12:00 PM [facility] CALCIUM 8.7 8.6 - 10.0 mg/dL 09/19/2024 12:00 PM [facility] BUN 35(H) 6 - 20 mg/dL 09/19/2024 12:00 PM [facility] CREATININE 3.36(H) 0.67 - 1.17 mg/dL 09/19/2024 12:00 PM [facility] GLUCOSE 141(H) 74 - 99 mg/dL 09/19/2024 12:00 PM [facility] TOTAL PROTEIN 5.7(L) 6.6 - 8.7 g/dL 09/19/2024 12:00 PM [facility] ALBUMIN 3.5(L) 4.0 - 4.9 g/dL 09/19/2024 12:00 PM [facility] BILIRUBIN TOTAL 0.4 0.0 - 1.2 mg/dL 09/19/2024 12:00 PM [facility] ALKALINE PHOSPHATASE 86 40 - 129 U/L 09/19/2024 12:00 PM [facility] AST 14 0 - 50 U/L 09/19/2024 12:00 PM [facility] ALT 9 0 - 50 U/L 09/19/2024 12:00 PM [facility] GFR 21(L) >=60 mL/min/1.7 3 sq meter 09/19/2024 12:00 PM CDT [facility] Comment:eGFR calculated with 2020 CKD-EPI equation. Vegetarian diet, extremely high or low muscle mass, and may affect results. Cystatin C with Glomerular Filtration Rate is a suitable alternative for these patients. ANION GAP 10 5 - 20 mmol/L 09/19/2024 12:00 PM CDT [facility] Blood BLOOD SPECIMEN / Unknown Collection / Unknown 09/19/2024 11:29 AM CDT 09/19/2024 11:38 AM CDT us Joesph Larios MD CHEMISTRY ORDERABLES Final Resu lt Performing Organization Address City/[facility]/ZIP Co de Phone Number [facility] CLIA # [id number] [address] [place] [address]30 * (ABNORMAL) HEMOGLOBIN A1C (06/27/2024 5:39 AM OUTBOARD MOTOR ASSEMBLER) HEMOGLOBIN A1C 6.6(H) <=5.6 % 06/29/2024 9:10 AM OUTBOARD MOTOR ASSEMBLER [facility] EST. AVG GLUCOSE, A1C 143 mg/dL 06/29/2024 9:10 AM OUTBOARD MOTOR ASSEMBLER [facility] Blood Collection / Unknown 06/27/2024 5:39 AM OUTBOARD MOTOR ASSEMBLER 06/27/2024 6:05 AM OUTBOARD MOTOR ASSEMBLER Narrative [facility] - 06/29/2024 9:10 AM OUTBOARD MOTOR ASSEMBLER HGB A1C INTERPRETATION NORMAL: <5.7% PRE-DIABETES: 5.7 - 6.4% DIABETES: 6.5% OR GREATER us Joey Vo DO CHEMISTRY ORDERABLES Final R esult Performing Organization Address City/[facility]/ZIP Co de Phone Number [facility] CLIA # [id number] [address] [place] [address] * (ABNORMAL) LIPID PANEL (05/02/2023 9:36 PM OUTBOARD MOTOR ASSEMBLER) CHOLESTEROL 224(H) <200 mg/dL 05/03/2023 10:26 PM [facility] TRIGLYCERIDE 286(H) <150 mg/dL 05/03/2023 10:26 PM [facility] HDL 39(L) 40 - 59 mg/dL 05/03/2023 10:26 PM [facility] LDL CALCULATED 128(H) <100 mg/dL 05/03/2023 10:26 PM [facility] NON-HDL CHOLESTEROL 185(H) <130 mg/dL 05/03/2023 10:26 PM [facility] Blood Venipuncture / Unknown 05/02/2023 9:36 PM OUTBOARD MOTOR ASSEMBLER 05/02/2023 9:51 PM [facility] Narrative [facility] - 05/03/2023 10:26 PM [facility] TOTAL CHOLESTEROL mg/dL Desirable <200 Borderline [...] Covarrubias MD CHEMISTRY ORDERABLES Final Resul t [facility] CLIA # [id number] [address] [address] [place] [address] from Last 3 Months or Most Recently Relevant to Health Maintenance Insurance MEDICAID [facility] [id number] * Guarantor: SMITHA QUEEN II Account Type Relation to Patient Date of Phone Billing Address Personal/Family [address] [place] [address] RX [employer] PLANS (INTERNAL) [facility] RX [employer] Commercial RX INFOCROSSING Medicaid RX [employer] RX Member Subscriber Plan / Payer (Ef fective for All Dates) Name:Smitha Queen II, Junior Relation to Subscriber:Self Name:Smitha Queen II, Junior Payer ID:Not on file Type:RX Medicare Part D Address: [place] Advance Directives For more information, please contact: [phone] Documents on File Type Date Recorded 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
--- OUTSIDE RECORDS SUMMARY | 2024-12-12 07:55 | XMS_ITS | Encounter Summary ---
Author Organization [facility] Address [address] [place] [address] Care Team Providers Care Cleaning Team Member Name Role Phone Dez Evans MD Primary Care Provider [phone] Reason for Visit * Reason Onset Date Comments Appointment Notification 09/24/2024 Encounter Details Date Type Department Care Team (Late st Contact Info) Description 09/24/2024 Telephone [facility] [address] [place] [address] Marla Rodriges FNP [address] [facility] [address] [place] [address] Appointment Notification Social History Tobacco Use Types Packs/Day Years Used Date Smoking Tobacco: Never Smokeless Tobacco: Never Alcohol Use Standard Drinks/Week Comments Not Currently 0 (1 standard drink = 0.6 oz pur e alcohol) rarely drinks since 2013 Sex and Gender Information Value Date Recorded Sex Assigned at Not on file Legal Sex Male 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 Carmen Sargent, [facility] Cardiology [facility], [facility] PSR documented in this encounter Plan of Treatment Upcoming Encounters Date Type Department Care Team (Late st Contact Info) Description 02/12/2025 3:30 PM CDT [facility] Visit [facility] [place] [address] [place] [address] Shannan Goodwin MD [address] [place] [address] documented as of this encounter Visit Diagnoses Not on filedocumented in this encounter Additional Health Concerns Assessment Noted Time PHQ-9 Depression Total Score: 1 06/29/19 2:57 AM COOK HELPER MEAT documented as of this encounter Care Teams Cleaning Team Member Relationship Specialty Start Date End Date Dez Evans MD [address] [place] [address] PCP - General Family Practice 06/18/24 documented as of this encounter
--- OUTSIDE RECORDS SUMMARY | 2024-12-12 07:55 | XMS_ITS | Clinical Summary ---
Author Organization [facility] Address [address] [address] Care Team Providers Care Electronic Warfare Operator Name Role Phone Kp Montanez DO Primary Care Provider [phone] Allergies Active Allergy Reactions Criticality Noted Date [...] taking.Reported on 06/25/2024 bumetanide (BUMEX) 2 MG tabletIndications:Healthcare Facility Administrator jose combined systolic and diastolic heart failure [...] Overview (04/26/2020): Seen on CT abd at [facility] 10/2018 Coronary arteriosclerosis 05/24/2019 Noncompliance with medication regimen 10/27/2018 Essential hypertension 09/06/2018 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 ilure 09/06/2018 Normocytic anemia 09/06/2018 Chronic kidney disease stage 4 06/26/2018 Overview (2020): Update for Diagnosis Load 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 06/26/2018 Combined hyperlipidemia 01/15/2013 Acquired hypothyroidism 08/18/2012 Encounters Date Type Department Care Team Description 12/10/2024 Orders Only [facility] [address] [place] [address] Yesi Madison MD 12/03/2024 Orders Only [facility] [address] [place] [address] Yesi Madison MD 12/01/2024 Treatment [facility] [address] [place] [address] Zoey Johnson NP End stage renal disease; Dependence on renal dialysis 11/27/2024 Orders Only [place] [address] [place] [address] Yesi Madison MD 11/24/2024 Telephone [facility] [address] [place] [address] Yesi Madison MD 11/24/2024 [facility] [address] [place] [address] Ghazal Schmitt NP End stage renal disease; Dependence on renal dialysis 11/19/2024 Orders Only [facility] [address] [place] [address] Yesi Madison MD 11/17/2024 [facility] [address] [place] [address] Ghazal Schmitt NP End stage renal disease; Dependence on renal dialysis 11/10/[address] [place] [address], [facility] [address] [place] [address] Zoey Johnson NP End stage renal disease; Dependence on renal dialysis 11/05/2024 Orders Only [facility], [facility] [address] [place] [address] Yesi Madison MD 11/05/[address] [place] [address], [facility] [address] [place] [address] Yesi Madison MD End stage renal disease; Dependence on renal dialysis 10/22/2024 [facility], [facility] [address] [place] [address] Yesi Madison MD 10/20/[address] [place] [address], [facility] [address] [place] [address] Zoey Johnson NP End stage renal disease; Dependence on renal dialysis 10/20/2024 [facility]phone [facility], [facility] [address] [place] [address] Yesi Madison MD 10/15/2024 Orders [facility], [facility] [address] [place] [address] Yesi Madison MD 10/15/[address] [place] [address], [facility] [address] [place] [address] Yesi Madison MD End stage renal disease; Dependence on renal dialysis 10/08/2024 Orders [facility], [facility] [address] [place] [address] Yesi Madison MD 10/06/[address] [place] [address] Nephrology [facility], [facility] [address] [place] [address] Ghazal Schmitt NP End stage renal disease; Dependence on renal dialysis 10/05/2024 Telephone [facility], [facility] [address] [place] [address] Yesi Madison MD 10/01/2024 Orders Only [facility], [facility] [address] [place] [address] Yesi Madison MD 09/29/2024 Orders Only [facility], [facility] [address] [place] [address] Yesi Madison MD 09/29/2024 TCM in D[facility] Clinic [address] [place], [place] [address], [facility] [address] [place] [address] Zoey Johnson NP 09/29/[address] [place] [address] [facility], [facility] [address] [place] [address] Zoey Johnson NP End stage renal disease; Dependence on renal dialysis 09/26/2024 Orders Only [facility], [facility] [address] [place] [address] Yesi Madison MD 09/17/2024 Orders Only [facility], [facility] [address] [place] [address] Yesi Madison MD from Last [...] Priority Date/Time Associated Diagnosis Comments HEMATOLOGY Routine 12/10/2024 HEMATOLOGY Routine 12/03/2024 CHEMISTRY Routine 11/27/2024 HEMATOLOGY [...] Last 3 Months Results * (ABNORMAL) HEMATOLOGY (12/10/2024) Only the most recent of12 resultswithin the time period is included. Hemoglobin 12.0(L) 14.0 - 18.0 g/dL [facility] Hemoglobin x 3 36(L) 42.0 - 54.0 % [facility] 12/10/2024 12/11/2024 9:2 5 AM CDT Narrative [facility] - 12/11/2024 Unless otherwise specified, test(s) performed at: [facility], [address] [place] [address] DIRECTOR OF CONSUMER MARKETING: Jose Martin Mariscal M.D. For any questions, please call customer service at FREQUENCY:OTHER Resulting Agency Comment Specimen source: Blood us Yesi Madison MD LAB BLOOD ORDERABLES Final Re sult [employer] [facility] See order comments or contact performing lab [facility], [place] * [facility] Chemistry (11/27/2024) Only the most recent of5 resultswithin the time period is included. Pathologist [facility] Potassium 4.1 3.5 - 5.1 mEq/L [facility] 11/27/2024 11/28/2024 10: 57 AM CDT Narrative [facility] - 11/28/2024 Unless otherwise specified, test(s) performed at: [facility], [address] [place] [address] DIRECTOR OF CONSUMER MARKETING: Jose Martin Mariscal M.D. For any questions, please call customer service at FREQUENCY:OTHER Resulting Agency Comment Specimen source: Serum us Yesi Madison MD LAB BLOOD ORDERABLES Final Re sult Performing Organization Address [facility] de Phone Number [facility] See order comments or contact performing lab Unknown, [place] * [facility] (11/19/2024) Only the most recent of3 resultswithin the time period is included. % Urea Reduction 74 65 - 80 % [facility] 11/19/2024 11/21/2024 10: 46 AM CDT Narrative [facility] - 11/21/2024 Unless otherwise specified, test(s) performed at: [facility], [address] [place] [address] DIRECTOR OF CONSUMER MARKETING: Jose Martin Mariscal M.D. For any questions, please call customer service at FREQUENCY:MONTHLY Resulting Agency Comment Specimen source: Plasma us Yesi Madison MD LAB BLOOD ORDERABLES Final Re sult Performing Organization Address [facility] de Phone Number [facility] See order comments or contact performing lab Unknown, [place] * POST CHEMISTRY (11/19/2024) Only the most recent of3 resultswithin the time period is included. Pathologist [facility] BUN Post Dialysis 11 6 - 19 mg/dL [facility] 11/19/2024 11/21/2024 10: 46 AM CDT Narrative [employer] [facility] - 11/21/2024 Unless otherwise specified, test(s) performed at: [facility], [address] [place] [address] DIRECTOR OF CONSUMER MARKETING: Jose Martin Mariscal M.D. For any questions, please call customer service at FREQUENCY:MONTHLY Resulting Agency Comment Specimen source: Plasma us Yesi Madison MD LAB BLOOD ORDERABLES Final Re sult Performing Organization Address [facility] de Phone Number [facility] See order comments or contact performing lab Unknown, [place] * [facility] Results (11/19/2024) Only the most recent of3 resultswithin the time period is included. eKt/V (Tattersall) 1.30 [facility] PCR 55.10 [facility] eKdrt/V 1.29 [facility] spKt/V (Daugirdas II) 1.49 [facility] WSTDKT/V 2.4 [facility] spKt/V Gotch 1.50 [facility] eNPCR 0.72 [facility] nPCR_HD 0.79 [facility] eKt/V Gotch 1.29 [facility] 11/19/2024 11/19/2024 us Valdo Ordering Provider LAB BLOOD ORDERABLES Final Result [facility] Contact Performing lab Unknown, [place] * (ABNORMAL) THYROIDS (10/22/2024) Pathologist [facility] TSH 4.142(H) 0.300 - 3.000 mIU/L [facility] Comment: The reference range of 0.300-3.000 mIU/L is recommended by the [place] Association of Clinical Endocrinologists (AACE). An ESRD population contains about 20% of individuals with TSH of up to 20 mIU/L and normal free T4 consistent with non-thyroidal illness. ESRD patients with true hypothyroidism develop persistent values above 20 mIU/L. 10/22/2024 10/23/2024 1:1 0 PM CDT Narrative [facility] - 10/23/2024 Unless otherwise specified, test(s) performed at: [facility], [address] [place] [address] DIRECTOR OF CONSUMER MARKETING: Jose Martin Mariscal M.D. For any questions, please call customer service at FREQUENCY:MONTHLY Resulting Agency Comment Specimen source: Serum Yesi Madison MD LAB BLOOD ORDERABLES Final Re sult [facility] See order comments or contact performing lab Unknown, [place] * SPECIAL CHEMISTRY (10/22/2024) Only the most recent of2 resultswithin the time period is included. Creatine Kinase (CK/CPK) 47 30 - 223 U/L [facility] 10/22/2024 10/23/2024 1:1 0 PM CDT Narrative Resulting Agency Comment Specimen source: Serum us Yesi Madison MD LAB BLOOD BANK TEST ORDERABLE S Final Result [facility] See order comments or contact performing lab Unknown, [place] from Last 3 Months Insurance [facility] Medicare Care Teams Electronic Warfare Operator Relationship Specialty Start Date End Date Kp Montanez DO [address] [place] [address] PCP - General Internal Medicine 01/07/23
--- OUTSIDE RECORDS SUMMARY | 2024-12-12 07:55 | XMS_ITS | Encounter Summary ---
Author Organization [facility], [facility] Address [address] [place] [address] Phone Care Team Providers Care Cone Machine Operator Name Role Phone Kp Montanez DO Primary Care Provider [phone] Encounter Details Date Type Department Care Team (Late st Contact Info) Description 12/10/2024 Orders Only [facility] [address] [place] [address] Yesi Madison MD [address] [place] [address] Social History Tobacco Use Types [...] Date/Time Associated Diagnosis Comments HEMATOLOGY Routine 12/10/2024 documented in this encounter Results * (ABNORMAL) HEMATOLOGY (12/10/2024) Hemoglobin 12.0(L) 14.0 - 18.0 g/dL [facility] Hemoglobin x 3 36(L) 42.0 - 54.0 % [facility] 12/10/2024 12/11/2024 9:2 5 AM CDT Narrative [facility] - 12/11/2024 Unless otherwise specified, test(s) performed at: [facility], [address] [place] [address] COMMUNITY OUTREACH DIRECTOR: Jose Martin Mariscal M.D. For any questions, please call customer service at FREQUENCY:OTHER Resulting Agency Comment Specimen source: Blood us Yesi Madsion MD LAB BLOOD ORDERABLES Final Re sult [facility] See order comments or contact performing lab Unknown, [place] documented in this encounter Visit Diagnoses Not on filedocumented in this encounter Care Teams Cone Machine Operator Relationship Specialty Start Date End Date Kp Montanez DO [address] [place] [address] PCP - General Internal Medicine 01/07/23 documented as of this encounter
--- OUTSIDE RECORDS SUMMARY | 2024-12-12 07:55 | XMS_ITS | Encounter Summary ---
Author Organization [facility], [facility] Address [address] [place] [address] Phone Care Team Providers Care Agricultural Extension Agent Name Role Phone Kp Montanez Primary Care Provider [phone] Encounter Details Date Type Department Care Team (Late st Contact Info) Description 12/24/2018 Orders Only [facility] [address] [place] [address] Antolin Weiss MD [address] [place] [address] Chronic kidney disease stage 3; [...] Mckeon MA - 12/17/2018 2:15 PM CDT [facility] [address] [place] [id number] us Antolin Weiss MD LAB BLOOD ORDERABLES Fi nal Result * PTH, intact (CKD3a) (12/17/2018 1:55 PM CDT) Parathyroid Hormone, Intact 119.3 pg/mL Blood specimen (specimen) 12/17/2018 1:55 PM CDT Leslie Mckeon MA - 12/17/2018 2:15 PM CDT [facility] [address] [place] [id number] [place] Antolin Weiss MD LAB BLOOD ORDERABLES Fi nal Result * (ABNORMAL) Urine albumin / creatinine ratio (12/17/2018 1:55 PM CDT) Pathologist [facility] Urine Microalbumin 28 mg/dL Creatinine, Urine Random 76.2 mg/dL Microalb/Creat Ratio 367(A) 30 - 300 mg/g Creat Urine specimen (specimen) 12/17/2018 1:55 PM CDT Antolin Weiss MD LAB URINE ORDERABLES Fi nal Result * CBC (CKD3a) (12/17/2018 1:55 PM CDT) Pathologist [facility] WBC 8.8 K/uL Red Blood Cell Count [...] Benson MA - 12/17/2018 2:15 PM CDT [facility] [address] [place] [address] Antolin Weiss MD LAB BLOOD ORDERABLES Fi nal Result * (ABNORMAL) RFP (CKD3a) (12/17/2018 1:55 PM CDT) Pathologist [facility] Albumin 4.2 3.5 - 5.0 g/dL BUN [...] Mckeon MA - 12/17/2018 2:15 PM CDT [facility] [address] [place] [id number] [place] Antolin Weiss MD LAB BLOOD ORDERABLES Fi nal Result documented in this encounter Visit Diagnoses Diagnosis Chronic kidney disease stage 3 (HCC) Type 2 diabetes mellitus with diabetic chronic kidney disease (HCC) documented in this encounter Care Teams Agricultural Extension Agent Relationship Specialty Start Date End Date Kp Montanez DO [address] [place] [address] PCP - General Internal Medicine 01/07/23 documented as of this encounter
--- OUTSIDE RECORDS SUMMARY | 2024-12-12 07:55 | XMS_ITS | Encounter Summary ---
Author Organization [facility], [facility] Address [address] [place] [address] Phone Care Team Providers Care Flask Fitter Name Role Phone MontanezKp kevin Primary Care Provider [phone] Encounter Details Date Type Department Care Team (Late st Contact Info) Description 07/14/2024 [facility], [facility] [address] [place] [address] Ayad Monahan, MIXING ENGINEER [address] [place] [address] Social History Tobacco Use Types [...] 07/14/2024 The patient was seen for a swxn-ja-cqff visit as part of Transitional Care Management services. Attending Human Performance Consultant: RITA MENENDEZ Dialysis Location: [facility] Schedule: Shift: 1 HOSPITALIZATION [...] 97.8*F Current Dialysis Vitals BP Sit: 140/78 AP/BROOM MAN: -- Pulse: 79 CARE COORDINATION Post-discharge follow-up appointments reviewed with the patient. COMMENTS: following Cardiology EDUCATION Education relevant to the discharge diagnosis provided to the patient or caregiver VISIT DIAGNOSES CPT Code 75750 - High complexity, seen 8-14 days post discharge or moderate complexity, seen [id number] days of discharge. R07.9 Chest pain, unspecified N18.6, Z99.2 End stage renal disease;Dependence on renal dialysis Signed by: AYAD MONAHAN NP on 07/14/2024 at 01:27:20 PM Transcribed by: AYAD MONAHAN NP on 07/14/2024 at 01:27:20 PM documented in this encounter Plan of Treatment Not on file documented as of this encounter Visit Diagnoses Not on filedocumented in this encounter Care Teams Flask Fitter Relationship Specialty Start Date End Date Kp Montanez DO [address] [place] [address] PCP - General Internal Medicine 01/07/23 documented as of this encounter
--- NOTE | 2024-12-12 08:02 | W.ED.AMS ---
HPI - Altered Mental Status General: Chief Complaint: Altered Mental Status Stated Complaint: ams Time Seen by Provider: 12/12/24 07:48 History of Present Illness: 54-year-old male presents to the emergency room from dialysis clinic. He has been here several times this week. Cardiac workups have been negative he was seen yesterday for an evaluation for altered mental status that ER visit was reviewed reviewed. He was at dialysis today and did not receive any of his dialysis treatment he wanted to go to the emergency room. He did not take any of his medications this morning. On arrival here he told the triage nurse answer most questions that he does not know or cannot remember he was able to tell me that he hurts below the knees. He has a wandering tremor that is very irregular initially in his left hand and then he begins padding his right hand against his upper thigh intermittently tremor diminishes when he is answering questions. He denies chest pain or shortness of breath. Labs today reviewed today from yesterday's evaluation reviewed. Related Data Home Medications ?Medication ?Instructions ?Recorded ?Confirmed diphenhydramine HCl 25 mg tablet 50 mg PO DAILY PRN Allergy Symptoms 05/02/23 12/10/24 (Benadryl Allergy) insulin lispro 100 unit/mL See Rx Instructions .Route .COMPLEX 05/02/23 12/10/24 subcutaneous pen (Humalog KwikPen (U-100) Insulin) vit B,C-folic ac 800 mcg-zinc 12.5 1 tab PO BEDTIME 10/29/23 12/10/24 mg-selen-D3 2,000 unit-vit E tablet (RenaPlex-D) tizanidine 2 mg tablet 2 mg PO BID 03/24/24 12/10/24 bumetanide 2 mg tablet 2 mg PO BID 04/15/24 12/10/24 hydroxyzine HCl 50 mg tablet 100 mg PO BEDTIME PRN insomnia 04/21/24 12/10/24 promethazine 25 mg tablet 25 mg PO Q6H PRN Nausea 04/21/24 12/10/24 acetaminophen 500 mg tablet 1,000 mg PO QID PRN Pain 06/04/24 12/10/24 (Tylenol Extra Strength) hydrocodone 5 mg-acetaminophen 325 1 tab PO Q6H 06/16/24 12/10/24 mg tablet metoprolol tartrate 25 mg tablet 12.5 mg PO BID 06/16/24 12/10/24 apixaban 2.5 mg tablet (Eliquis) 2.5 mg PO BID 12/08/24 12/10/24 fexofenadine 180 mg tablet 180 mg PO DAILY 12/08/24 12/10/24 (Allergy Relief (fexofenadine)) gabapentin 300 mg capsule 300 mg PO BID 12/08/24 12/10/24 insulin degludec 200 unit/mL (3 40 unit SUBCUT BEDTIME 12/08/24 12/10/24 mL) subcutaneous pen (Tresiba FlexTouch U-200 insulin) levothyroxine 88 mcg tablet 88 mcg PO QAM 12/08/24 12/10/24 ranolazine 1,000 mg 1,000 mg PO BID 12/08/24 12/10/24 tablet,extended release,12 hr Previous Rx's ?Medication ?Instructions ?Recorded nitroglycerin 0.4 mg sublingual 0.4 mg sublingual Q5M PRN Chest 08/27/23 tablet (Nitrostat) Pain #25 tabs fluoxetine 40 mg capsule 40 mg PO QAM #30 caps 04/20/24 trazodone 100 mg tablet 300 mg (3 x 100 mg) PO BEDTIME PRN 04/20/24 insomia #90 tabs mupirocin 2 % topical ointment 1 applic topical BID #15 grams 11/09/24 (Centany) tirzepatide 15 mg/0.5 mL See Rx Instructions .Route 11/18/24 subcutaneous pen injector .COMPLEX #2 mL (Mounjaro) clopidogrel 75 mg tablet (Plavix) 75 mg PO DAILY 30 days #30 tabs 12/09/24 Allergies Allergy/AdvReac Type Severity Reaction Status Date / Time Iodinated Contrast Media Allergy Severe ALGY-Difficulty Verified 12/12/24 08:04 Breathing iodine Allergy Severe ALGY-Difficulty Verified 12/12/24 08:04 Breathing metoclopramide (From Reglan) Allergy Severe ALGY-Difficulty Verified 12/12/24 08:04 Breathing nalbuphine (From Nubain) Allergy Severe ADR-Diarrhe Verified 12/12/24 08:04 a naproxen (From Naprosyn) Allergy Severe ADR-Vomitin Verified 12/12/24 08:04 g Sulfa (Sulfonamide Allergy Severe ALGY-Difficulty Verified 12/12/24 08:04 Antibiotics) Breathing ketorolac Allergy Intermediate ADR-Nausea Verified 12/12/24 08:04 ondansetron (From Zofran) Allergy Intermediate ADR-Abdominal Verified 12/12/24 08:04 Pain prochlorperazine (From Allergy Intermediate ADR-Irritab Verified 12/12/24 08:04 Compazine) le codeine AdvReac Severe ALGY-Anaphy Verified 12/12/24 08:04 laxis haloperidol (From Haldol) AdvReac Intermediate ADR-Irritab Verified 12/12/24 08:04 le Review of Systems Const: Denies: fever(s) or chills Card: Denies: chest pain Resp: Denies: dyspnea GI: Denies: abdominal pain Musc: Reports: extremity swelling (Bilateral below the knees); Denies: neck pain or back pain Skin/Breast: Denies: rash PFSH ED PFSH: Medical History Atherosclerotic heart disease of [place] coronary artery with other forms of angina pectoris hx of CAD with prior stenting of proximal LAD, LCx, RCA ESRD (end stage renal disease) Hypothyroidism Generalized anxiety disorder Major depressive disorder, recurrent severe without psychotic features Pericarditis Elevated troponin Essential hypertension Essential hypertension ESRD (end stage renal disease) Hypertension Psychiatric care 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 mellitus Chronic renal failure Chest pain Chest pain CRF (chronic renal failure) Chronic right SI joint pain Chronic systolic heart failure UTI (urinary tract infection) Peripheral arterial disease PVD (peripheral vascular disease) Worsening angina Angina at rest Chest pain Uremic encephalopathy ESRD (end stage renal disease) D-dimer, elevated Acute on chronic congestive heart failure History of pulmonary embolism Diabetes Acute kidney injury superimposed on CKD GERD (gastroesophageal reflux disease) Alcohol use disorder, moderate, in sustained remission DVT (deep venous thrombosis) (~03/2020) Proximal left subclavian, basilic and brachial veins, started eliquis this stay, felt present prior to admission Chronic kidney disease -baseline Cr appears to be around 1.5 Ischemic cardiomyopathy Onychodystrophy Chronic anticoagulation Eliquis Osteoarthritis of spine Hypertension Hyperlipidemia Diabetes Depression Anemia Foot drop, left H/O acute myocardial infarction H/O deep venous thrombosis developed compartment syndrome Surgical History Peritoneal dialysis catheter in situ (06/15/21) History of appendectomy 1995 History of excision of mass 06/08/2019: Subcutaneous mass on back History of removal of Port-a-Cath Port-A-Cath in place H/O vasectomy Hx of cholecystectomy History of coronary artery stent placement 5x H/O skin graft History of inguinal hernia repair, bilateral 2000 H/O removal of testicle left H/O colonoscopy (11/14/20) 08/2015 H/O esophagogastroduodenoscopy (11/14/20) 08/2015 Family History Grandfather Cancer skin cancer Parkinson disease Brother Hypertension Father Heart disease Mother Hypertension Stroke Aneurysm Grandmother Aneurysm Other Crohn's disease Denies family history of Anesthesia complication Bleeding disorder Social History Smoking and tobacco/nicotine status: never used tobacco/nicotine Second hand smoke exposure: No Alcohol intake: former Year of sobriety/quit date alcohol: 2015 Former alcohol use details: Only holidays - last use 05.19.2015 Substance/Drug Use: never Adopted: No Caregiver/support person: No Lives independently: Yes Household members: spouse Housing: Apartment Marital status: Number of children: 2 Number of grandchildren: 0 Highest education level completed: High School Graduate service: No Current occupational status: disabled Pets and animals: Yes Pets & animals: dog(s) Leisure activites: games and other Leisure activities details: watching TV Sexually active: Yes Do you think of yourself as: Straight/Heterosexual Current gender identity: Male Shannon/Protestant: Gnosticist Special shannon needs: No Agree to transfusion: Yes Physical Exam Const: GENERAL APPEARANCE: cooperative ORIENTATION/CONSCIOUSNESS: Yes awake HENMT: COMMON NORMALS: normocephalic, atraumatic and hearing grossly normal bilaterally HEAD & SCALP: normocephalic and atraumatic Resp: COMMON NORMALS: normal respiratory effort, No retractions, No use of accessory muscles and clear to auscultation bilaterally AUSCULTATION: clear to auscultation bilaterally Cardio: COMMON NORMALS: regular rate, regular rhythm and No murmurs present (Cardio) RATE: regular rate RHYTHM: regular rhythm GI: COMMON NORMALS: Soft to palpation and No hepatosplenomegaly present AUSCULTATION: Yes normoactive bowel sounds PALPATION: Yes Soft to palpation, No Tenderness to palpation present (GI), No Guarding due to palpation present (GI) and Yes No hepatosplenomegaly present Extremity: COMMON NORMALS: normal to inspection, capillary refill normal, no clubbing, cyanosis or edema, no calf tenderness and no pedal edema Skin: COMMON NORMALS: no rashes or lesions noted GENERAL SKIN EXAM: no rashes or lesions noted Course Vital Signs: Vital signs: Vital Signs Temperature 98.4 F 12/12/24 07:48 Pulse Rate 98 12/12/24 07:48 Blood Pressure 192/72 12/12/24 07:48 Pulse Oximetry 100 12/12/24 07:48 MDM - Altered Mental Status Medical Decision Making Patient altered he is also requiring dialysis today. No unilateral deficits no sign that he had a stroke at this point there is no evidence of meningitis on exam. No witnesses to seizures. His tremulousness is not in a typical pattern it varies from right to left and very atypical. Discussed with Dr. Mariee will admit. Did not repeat his head CT at this time his chest x-ray is a question of infiltrate I think it is more likely atelectasis. Will admit and evaluate further he will need dialysis today as well. Serial cardiac enzymes. Medical Records I reviewed the patient's medical records. Lab Data I reviewed the patient's lab results. 12/12/24 09:15 12/12/24 10:41 Radiology Impressions Chest X-Ray 12/12/24 07:55 IMPRESSION: Mild left basilar atelectasis. No focal consolidation. Laboratory Results WBC 7.07 10^3/uL (3.29-11.43) 12/12/24 09:15 RBC 3.68 10^6/uL (3.85-5.65) L 12/12/24 09:15 Hgb 11.90 g/dL (11.27-16.99) 12/12/24 09:15 Hct 34.8 % (37-53) L 12/12/24 09:15 MCV 94.6 fl (82-101) 12/12/24 09:15 MCH 32.3 pg (27-33) 12/12/24 09:15 MCHC 34.2 g/dL (30-55) 12/12/24 09:15 RDW 13.8 % (12.1-15.1) 12/12/24 09:15 Plt Count 232 10^3/cmm (157-399) 12/12/24 09:15 MPV 10.2 fL (7.4-10.4) 12/12/24 09:15 Neut % (Auto) 77.5 % 12/12/24 09:15 Lymph % (Auto) 11.0 % 12/12/24 09:15 [place] % (Auto) 8.8 % 12/12/24 09:15 Eos % (Auto) 1.4 % 12/12/24 09:15 Baso % (Auto) 1.0 % 12/12/24 09:15 Neut # (Auto) 5.48 10^3/uL (1.8-7.7) 12/12/24 09:15 Lymph # (Auto) 0.8 10^3/uL (0.8-4.8) 12/12/24 09:15 [place] # (Auto) 0.6 10^3/uL (0.2-0.9) 12/12/24 09:15 Eos # (Auto) 0.1 10^3/uL (0.0-0.8) 12/12/24 09:15 Baso # (Auto) 0.1 10^3/uL (0.0-0.1) 12/12/24 09:15 Nucleated RBC % (auto) 0 % 12/12/24 09:15 Nucleated RBCs # 0.0 /100WBC 12/12/24 09:15 Specimen Type Arterial 12/12/24 08:23 Sample Site Radial, left 12/12/24 08:23 ABG pH 7.52 (7.35-7.45) H 12/12/24 08:23 ABG pCO2 30.2 mmHg (35-45) L 12/12/24 08:23 ABG pO2 80.8 mmHg (80.0-100.0) 12/12/24 08:23 ABG PO2/FiO2 Ratio 384 12/12/24 08:23 ABG HCO3 24.6 mmol/L (22-26) 12/12/24 08:23 ABG O2 Saturation 96.1 12/12/24 08:23 ABG Base Excess 2.3 mmol/L (-2.0-2.0) H 12/12/24 08:23 Scottie Test Pos 12/12/24 08:23 A-a O2 Gradient 3.9 mmHg (5-10) L 12/12/24 08:23 Hematocrit 38.0 % (42-52) L 12/12/24 08:23 Hgb O2 Saturation 94.9 % (95-100) L 12/12/24 08:23 Carboxyhemoglobin 0.5 %THgb (0.4-20.1) 12/12/24 08:23 Methemoglobin 0.8 % (0.4-1.5) 12/12/24 08:23 Total Hemoglobin 12.4 g/dL (14-18) L 12/12/24 08:23 Sodium 142.0 mmol/L (131-143) 12/12/24 08:23 Potassium 3.9 mmol/L (3.5-5.0) 12/12/24 08:23 Glucose 214.0 mg/dL (70-115) H 12/12/24 08:23 Ionized Calcium 1.2 mmol/L (1.1-1.4) 12/12/24 08:23 O2 Delivery Device Room air 12/12/24 08:23 FiO2 21.0 % 12/12/24 08:23 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 ID [place] 12/12/24 08:23 Sodium Cancelled 12/12/24 09:15 Potassium Cancelled 12/12/24 09:15 Chloride Cancelled 12/12/24 09:15 Carbon Dioxide Cancelled 12/12/24 09:15 Anion Gap Cancelled 12/12/24 09:15 BUN Cancelled 12/12/24 09:15 Creatinine Cancelled 12/12/24 09:15 GFR Calculation Cancelled 12/12/24 09:15 Glucose Cancelled 12/12/24 09:15 Calculated Osmolality Cancelled 12/12/24 09:15 Calcium Cancelled 12/12/24 09:15 Magnesium Cancelled 12/12/24 09:15 Total Bilirubin Cancelled 12/12/24 09:15 AST Cancelled 12/12/24 09:15 ALT Cancelled 12/12/24 09:15 Alkaline Phosphatase Cancelled 12/12/24 09:15 Ammonia 28 umol/L (16-60) 12/12/24 09:15 Troponin T Baseline 71 ng/L (0-15) H 12/12/24 09:15 Total Protein Cancelled 12/12/24 09:15 Albumin Cancelled 12/12/24 09:15 Globulin Cancelled 12/12/24 09:15 Serum Ketones Negative (Negative) 12/12/24 09:15 All radiology interpretation(s) finalized by discharge Discharge Plan Discharge Admit Provider: Rafiq Mariee Condition: Stable Coding Level of Care Code ED Cost Estimating Clerk for Radhag Maria Victoria
[2024-12-12 08:34] LABS: ABG PCO2 30.2 mmHg (35-45); ABG PH Result 7.52 (7.35-7.45); Alveolar-Arterial Oxygen Gradi 3.9 mmHg (5-10); Arterial Blood Gas Hematocrit 38.0 % (42-52); Blood Gas Allen Test Pos; Blood Gas Operator Identificat WALCI; Blood Gas Sample Site Radial, left; Blood Gas Sample Type Arterial; Carboxyhemoglobin 0.5 %THgb (0.4-20.1); Glucose Level-ABG 214.0 mg/dL (70-115); HCO3 ABG 24.6 mmol/L (22-26); Ionized Calcium Level - ABG 1.2 mmol/L (1.1-1.4); Methemoglobin 0.8 % (0.4-1.5); Oxygen Saturation ABG 96.1; PO2 ABG 80.8 mmHg (80.0-100.0); PO2 FiO2 Ratio Arterial Blood 384; Potassium Level - ABG 3.9 mmol/L (3.5-5.0); Sodium Level - ABG 142.0 mmol/L (131-143)
[2024-12-12 09:23] LABS: Hematocrit 34.8 % (37-53); Hemoglobin 11.90 g/dL (11.27-16.99); Mean Corpuscular HGB Conc 34.2 g/dL (30-55); Mean Corpuscular Hemoglobin 32.3 pg (27-33); Mean Corpuscular Volume 94.6 fl (82-101); Nucleated Red Blood Cells % 0 %; Platelet Count 232 10^3/cmm (157-399); Red Blood Count 3.68 10^6/uL (3.85-5.65); White Blood Count 7.07 10^3/uL (3.29-11.43)
[2024-12-12 09:45] LABS: Troponin(5th) Baseline 71 ng/L (0-15)
--- NOTE | 2024-12-12 09:47 | ECG_ITS ---
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
[2024-12-12 09:48] LABS: Ammonia 28 umol/L (16-60)
[2024-12-12 09:49] LABS: Ketone (Acetest) Serum Negative (Negative)
[2024-12-12 10:55] LABS: Add Urine Microscopic? YES; Glucose Urine UA Trace (Normal); Nitrate Urine Negative (Negative); Specific Gravity, Urine 1.012 (1.005-1.030)
[2024-12-12 11:05] LABS: Troponin 5 2HR 70.46 ng/L (0-15)
[2024-12-12 11:06] LABS: Albumin Level 3.9 g/dL (3.5-5.2); Alkaline Phosphatase 114 U/L (40-130); Calcium 9.4 mg/dL (8.5-10.5); Carbon Dioxide 24 mmol/L (22-29); Chloride 100 mmol/L (98-107); Creatinine Clr Calc Pharmacy 18.9745; Globulin 2.5 g/dL (1.3-4.6); Magnesium 2.1 mg/dL (1.7-2.3); Sodium 141 mmol/L (136-145)
[2024-12-12 11:13] LABS: Troponin 5 2HR Delta -0.54 ABS# (0-10)
[2024-12-12 11:28] LABS: Alanine Aminotransferase 10 U/L (0-41); Blood Urea Nitrogen 44 mg/dL (6-20); Glucose 169 mg/dL (65-115); Osmolality Calculated 307 mOsm/kg (285-295); Total Protein 6.9 g/dL (6.6-8.7)
[2024-12-12 11:30] LABS: Anion Gap 20.3 (5-19); Aspartate Amino Transferase 16 U/L (0-40); Potassium 4.3 mmol/L (3.5-5.1)
[2024-12-12 11:40] LABS: Respiratory Syncytial Virus Ce NEGATIVE (Negative); SARS-CoV-2 PCR NEGATIVE (Negative)
--- NOTE | 2024-12-12 11:48 | CTR_ITS ---
PROCEDURE INFORMATION: Exam: CT Head Without And With Contrast Exam date and time: 12/12/2024 2:15 PM Age: 54 years old Clinical indication: Altered mental status/memory loss; Additional info: AMS TECHNIQUE: Imaging protocol: Computed tomography of the head without and with contrast. Radiation optimization: All CT scans at this facility use at least one of these dose optimization techniques: automated exposure control; mA and/or kV adjustment per patient size (includes targeted exams where dose is matched to clinical indication); or iterative reconstruction. Contrast material: OMNI 350; Contrast volume: 80 ml; Contrast route: INTRAVENOUS (IV); COMPARISON: CT head wo con* [id number] 12/11/2024 12:49 PM RADIATION DOSE METRICS: Total DLP (mGy-cm): 2345.18 FINDINGS: Brain: No acute intra-axial hemorrhage. No masses. Normal blanco-white matter differentiation. No midline shift or mass effect. Mild patchy hypodensity in hemispheric white matter bilaterally most likely due to chronic microangiopathy. No abnormal intracranial contrast enhancement. Cerebral ventricles: No ventriculomegaly. Paranasal sinuses: Visualized sinuses are unremarkable. No fluid levels. Mastoid air cells: Visualized mastoid air cells are well aerated. Bones: Unremarkable. No acute fracture. Soft tissues: Unremarkable. CT/CT head wo/w con [id number] IMPRESSION: No acute intracranial abnormality.
[2024-12-12 12:24] LABS: PCP Screen Urine Negative (Negative)
[2024-12-12 12:27] LABS: Lactic Sepsis W/Reflex 1.1 mmol/L (0.5-2.2)
[2024-12-12 12:34] LABS: Alcohol Level < 10 mg/dL (0-10)
[2024-12-12 12:35] LABS: Vitamin B12 1155 pg/mL (232-1245)
[2024-12-12 12:39] LABS: Procalcitonin 0.24 ng/mL (0-0.5); Thyroid Stimulating Hormone 2.84 uIU/mL (0.27-4.20)
[2024-12-12 12:43] LABS: Estmated Average Glucose 131; Hemoglobin A1C 6.2 % (4.0-6.0)
--- NOTE | 2024-12-12 13:03 | PM.HP ---
Providers/Chief Complaint Admitting Physician: Rafiq Mariee MD Primary Care Provider: Dez Evans MD Chief Complaint: ams History of Present Illness Rei Queen II is a 54 year old male with past medical history of CAD and multiple stents, most recently placed in May 2024, history of DVT on Eliquis, diabetes mellitus, CKD on maintenance hemodialysis Saturday. Patient presents to the hospital today to the ER with complaints of confusion which has been going on and off and getting worse since Saturday. Today Saturday. Patient has been to the ER at least 3 times since then with episodes of confusion. History confirmed with his spouse. She also states that there have been times and has been confused, getting forgetful in the past but has gotten worse since Saturday. She denies any changes in his medications. He denies any nausea, vomiting, diarrhea, fever. States he has been compliant with medications. States has been going to dialysis regularly. Review of Systems General: Reports: 10 or more systems reviewed and unremarkable except in HPI and below Const: Denies: fever(s), chills, body aches, change in appetite, change in weight, malaise, night sweats, diaphoresis, change in sleep pattern, daytime sleepiness or snoring Eyes: Denies: change in vision, blurry vision, photophobia, eye discomfort or eye discharge ENMT: Denies: throat pain, enlarged tonsils, hoarseness, mouth pain, oral sores, dry mouth, tinnitus, nasal congestion or post nasal drip Card: Denies: chest pain, palpitations, irregular heart rhythm, edema, swelling of feet/ankles, lightheadedness, syncope, pre-syncope, dyspnea on exertion, orthopnea, leg pain with exertion or acrocyanosis Resp: Denies: dyspnea, productive cough, non-productive cough, wheezing, stridor, pain on inspiration, change in phlegm color, hemoptysis or chest congestion GI: Denies: abdominal pain, nausea, vomiting, hematemesis, coffee ground emesis, dysphagia, heartburn, diarrhea, constipation, bloating, GI cramping, change in bowel habits, pain on defecation, hematochezia or melena : Denies: flank pain, difficulty urinating, dysuria, urinary frequency, urinary urgency, urinary hesitancy, urinary dribbling, difficulty starting urination, change in urine stream, nocturia or hematuria Musc: Denies: neck pain, back pain, extremity pain, joint pain, joint swelling, joint redness, joint stiffness or limited range of motion Neuro: Denies: headache(s), numbness in extremities, weakness in extremities, sensory changes, lack of coordination, difficulty walking, frequent falls, dizziness, vertigo, confusion, Slurred speech present, difficulty communicating thoughts or seizure-like activity Psych: Denies: anxiety, depression, mood swings, panic attacks, hopelessness or irritability Endo: Denies: polyuria, polydipsia, tired all the time, cold intolerance, excessive sweating, flushing or heat intolerance Dewey/Lymph: Denies: easy bruising or easy bleeding All/Imm: Denies: tongue swelling, facial swelling or acute wheezing Medications/Allergies Home Medications ?Medication ?Instructions ?Recorded ?Confirmed ?Last Taken ?Type diphenhydramine HCl 25 mg tablet 50 mg PO DAILY PRN Allergy Symptoms 05/02/23 12/12/24 12/11/24 07:00 History (Benadryl Allergy) insulin lispro 100 unit/mL See Rx Instructions .Route .COMPLEX 05/02/23 12/12/24 12/11/24 21:00 History subcutaneous pen (Humalog KwikPen (U-100) Insulin) nitroglycerin 0.4 mg sublingual 0.4 mg sublingual Q5M PRN Chest 08/27/23 12/12/24 12/07/24 Rx tablet (Nitrostat) Pain #25 tabs vit B,C-folic ac 800 mcg-zinc 12.5 1 tab PO BEDTIME 10/29/23 12/12/24 12/10/24 21:00 History mg-selen-D3 2,000 unit-vit E tablet (RenaPlex-D) tizanidine 2 mg tablet 2 mg PO BID PRN Muscle Spasm 03/24/24 12/12/24 12/10/24 History bumetanide 2 mg tablet 2 mg PO BID 04/15/24 12/12/24 12/11/24 07:00 History fluoxetine 40 mg capsule 40 mg PO QAM #30 caps 04/20/24 12/12/24 12/11/24 07:00 Rx hydroxyzine HCl 50 mg tablet 100 mg PO BEDTIME PRN insomnia 04/21/24 12/12/24 11/12/24 History promethazine 25 mg tablet 25 mg PO Q6H PRN Nausea 04/21/24 12/12/24 12/10/24 History acetaminophen 500 mg tablet 1,000 mg PO QID PRN Pain 06/04/24 12/12/24 12/05/24 History (Tylenol Extra Strength) hydrocodone 5 mg-acetaminophen 325 1 tab PO Q6H 06/16/24 12/12/24 12/09/24 History mg tablet metoprolol tartrate 25 mg tablet 12.5 mg PO BID 06/16/24 12/12/24 12/10/24 18:00 History tirzepatide 15 mg/0.5 mL See Rx Instructions .Route 11/18/24 12/12/24 12/06/24 14:00 Rx subcutaneous pen injector .COMPLEX #2 mL (Mounjaro) apixaban 2.5 mg tablet (Eliquis) 2.5 mg PO BID 12/08/24 12/12/24 12/11/24 07:00 History gabapentin 300 mg capsule 300 mg PO BID 12/08/24 12/12/24 12/07/24 History insulin degludec 200 unit/mL (3 40 unit SUBCUT BEDTIME 12/08/24 12/12/24 12/10/24 21:00 History mL) subcutaneous pen (Tresiba FlexTouch U-200 insulin) levothyroxine 88 mcg tablet 88 mcg PO QAM 12/08/24 12/12/24 12/10/24 07:00 History ranolazine 1,000 mg 1,000 mg PO BID 12/08/24 12/12/24 12/10/24 07:00 History tablet,extended release,12 hr clopidogrel 75 mg tablet (Plavix) 75 mg PO DAILY 30 days #30 tabs 12/09/24 12/12/24 12/11/24 07:00 Rx trazodone 100 mg tablet 200 mg PO BEDTIME PRN insomia 12/12/24 12/12/24 12/10/24 21:00 History Allergies Allergy/AdvReac Type Severity Reaction Status Date / Time Iodinated Contrast Media Allergy Severe ALGY-Difficulty Verified 12/12/24 08:04 Breathing iodine Allergy Severe ALGY-Difficulty Verified 12/12/24 08:04 Breathing metoclopramide (From Reglan) Allergy Severe ALGY-Difficulty Verified 12/12/24 08:04 Breathing nalbuphine (From Nubain) Allergy Severe ADR-Diarrhe Verified 12/12/24 08:04 a naproxen (From Naprosyn) Allergy Severe ADR-Vomitin Verified 12/12/24 08:04 g Sulfa (Sulfonamide Allergy Severe ALGY-Difficulty Verified 12/12/24 08:04 Antibiotics) Breathing ketorolac Allergy Intermediate ADR-Nausea Verified 12/12/24 08:04 ondansetron (From Zofran) Allergy Intermediate ADR-Abdominal Verified 12/12/24 08:04 Pain prochlorperazine (From Allergy Intermediate ADR-Irritab Verified 12/12/24 08:04 Compazine) le codeine AdvReac Severe ALGY-Anaphy Verified 12/12/24 08:04 laxis haloperidol (From Haldol) AdvReac Intermediate ADR-Irritab Verified 12/12/24 08:04 le PFSH Acute PFSH: Medical History (Updated 12/12/24 @ 13:11 by Rafiq Mariee MD) Contrast media allergy Thoracic disc disease Non-pressure chronic ulcer of other part of left foot limited to breakdown of skin Bilateral pes planus Hammertoe of left foot Rupture of extensor tendon of foot Kidney failure DM2 (diabetes mellitus, type 2) ICD (implantable cardioverter-defibrillator) in place Atherosclerotic heart disease of [place] coronary artery with other forms of angina pectoris hx of CAD with prior stenting of proximal LAD, LCx, RCA ESRD (end stage renal disease) Hypothyroidism Generalized anxiety disorder Major depressive disorder, recurrent severe without psychotic features Pericarditis Elevated troponin Essential hypertension Psychiatric care 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 mellitus CRF (chronic renal failure) Chronic right SI joint pain Chronic systolic heart failure UTI (urinary tract infection) Peripheral arterial disease PVD (peripheral vascular disease) Worsening angina Angina at rest Uremic encephalopathy D-dimer, elevated Acute on chronic congestive heart failure History of pulmonary embolism Acute kidney injury superimposed on CKD GERD (gastroesophageal reflux disease) Alcohol use disorder, moderate, in sustained remission DVT (deep venous thrombosis) (~03/2020) Proximal left subclavian, basilic and brachial veins, started eliquis this stay, felt present prior to admission Chronic kidney disease -baseline Cr appears to be around 1.5 Ischemic cardiomyopathy Onychodystrophy Chronic anticoagulation Eliquis Osteoarthritis of spine Hyperlipidemia Depression Anemia Foot drop, left H/O acute myocardial infarction Surgical History Peritoneal dialysis catheter in situ (06/15/21) History of appendectomy 1995 History of excision of mass 06/08/2019: Subcutaneous mass on back History of removal of Port-a-Cath Port-A-Cath in place H/O vasectomy Hx of cholecystectomy History of coronary artery stent placement 5x H/O skin graft History of inguinal hernia repair, bilateral 2000 H/O removal of testicle left H/O colonoscopy (11/14/20) 08/2015 H/O esophagogastroduodenoscopy (11/14/20) 08/2015 Family History Grandfather Cancer skin cancer Parkinson disease Brother Hypertension Father Heart disease Mother Hypertension Stroke Aneurysm Grandmother Aneurysm Other Crohn's disease Denies family history of Anesthesia complication Bleeding disorder Social History Smoking and tobacco/nicotine status: never used tobacco/nicotine Second hand smoke exposure: No Alcohol intake: former Year of sobriety/quit date alcohol: 2015 Former alcohol use details: Only holidays - last use 05.19.2015 Substance/Drug Use: never Adopted: No Caregiver/support person: No Lives independently: Yes Household members: spouse Housing: Apartment Marital status: Number of children: 2 Number of grandchildren: 0 Highest education level completed: High School Graduate service: No Current occupational status: disabled Pets and animals: Yes Pets & animals: dog(s) Leisure activites: games and other Leisure activities details: watching TV Sexually active: Yes Do you think of yourself as: Straight/Heterosexual Current gender identity: Male Shannon/Uatsdin: Islam Special shannon needs: No Agree to transfusion: Yes Vitals/I&O/Wt Last Vital Signs Temp 98.3 F 12/12/24 12:00 Pulse 100 12/12/24 12:00 Resp 20 H 12/12/24 12:00 BP 161/58 12/12/24 12:00 Pulse Ox 99 12/12/24 12:00 O2 Del Method Room Air 12/12/24 12:00 12/11/24 12/12/24 12/12/24 22:59 06:59 14:59 Intake Total 0 / 0 Balance 0 / 0 Weight last 48 hrs Weight 86.092 kg Weight 90.718 kg Physical Exam Narrative: General: No acute distress, AO x 2-3, forgetful, refers to who is at bedside regarding questions of medications, pallor present, chronically sick appearing HEENT: PERRLA, pupils bilaterally equal and reactive Chest: Normal vesicular breath sounds, no added sounds, equal good air entry bilaterally CVS: S1-S2 regular, no murmurs, no tachycardia, no gallops, no rubs Abdomen: Soft, nontender, no organomegaly, bowel sounds present Neuro: No focal deficits, no facial deformity, AO x3, power 5/5 in all limbs Data 12/12/24 09:15 12/12/24 10:41 Micro: Microbiology 12/12/24 09:15 Blood Culture - Preliminary Blood SPECIMEN COLLECTED 12/12/24 08:39 Blood Culture - Preliminary Blood SPECIMEN COLLECTED A&P Assessment and plan 1. Forgetfulness: Unknown cause. Did have a CT scan earlier this week which was negative for acute stroke. Patient denies any changes in medications recently. Has been getting going to dialysis regularly. BUN seems to be at baseline. Patient is due for dialysis today. LFTs within normal limits. Ammonia normal. Will check TSH, B12 levels. Low concerns for infectious etiology for now. Patient does not have any leukocytosis. Denies any dysuria. UA negative for UTI. Will check respiratory viral panel, blood cultures. Will check CT head with and without contrast. There is a lot of confusion regarding the medications which she is supposed to be on or which she takes at home. As per spouse patient does his own medications but he has been confused lately. On discharge earlier this week he was supposed to be on bupropion 300 mg daily, BuSpar 10 mg twice daily which are not on his MAR currently along with fluoxetine. Have requested spouse to bring in his medication box so that medication can be confirmed. Cannot rule out occasional confusion in setting of hypoglycemia. If all the above will be negative there is a high risk of patient developing early dementia. He states he does have family history of dementia, Alzheimer's and Parkinson's. 2. Major depressive disorder, recurrent severe without psychotic features: Continue with home dose of trazodone every night as needed, fluoxetine, bupropion and BuSpar every morning. 3. Generalized anxiety disorder: 4. Uncontrolled hypertension: Goal blood pressure less than 140/90 mmHg. For now restart home medications of metoprolol. Will add further medications depending on blood pressures. 5. Atherosclerotic heart disease of [place] coronary artery with other forms of angina pectoris: Denies any active chest pain. Recently in hospital with similar complaints. As per the last discharge he supposed to be on Coreg 6.25 mg twice daily, nifedipine 30 mg daily. Currently medications not on his MAR. 6. ESRD (end stage renal disease): Nephrology consulted. Will continue with dialysis as per home sessions. 7. DM2 (diabetes mellitus, type 2): Check A1c,. Start on insulin sliding scale. Continue with home dose of long-acting insulin. 8. Hypothyroidism: Check TSH. Continue with home dose of levothyroxine. Plan: Full code Renal carb consistent diet Protonix for PUD prophylaxis Eliquis was sufficient for DVT prophylaxis. PDMP PDMP Reviewed: Last Reviewed 12/12/24 13:59 by Rafiq Mariee MD Attestations Medical Necessity Statement*: Admission for more than 2 midnights for management of altered mental status, confusion of unknown etiology with high concerns for irregular medications, possible stroke, possible worsening dementia in a patient with baseline end-stage renal disease Diagnoses Forgetfulness R68.89 Major depressive disorder, recurrent severe without psychotic features F33.2 Generalized anxiety disorder F41.1 Uncontrolled hypertension I10 Atherosclerotic heart disease of [place] coronary 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 ESRD (end stage renal disease) N18.6 DM2 (diabetes mellitus, type 2) E11.9 Hypothyroidism E03.9
[2024-12-12] MEDS: diphenhydrAMINE 50 mg/mL SDV 1mL IVP (13:48)
[2024-12-12] MEDS: methylPREDNISolone sod succ 125 mg/2 mL INJ 60 MG IVP (13:48)
--- NOTE | 2024-12-12 14:09 | PC.HD ---
13:25 Pt's nurse in the dialysis room as dialysis starting, mentioned that pt is to have a CT w/wo contrast today. Dr Mariee in to see pt and notified of plan to pause treatment so pt can go to CT and receive contrast, then come back to resume dialysis after contrast. 13:46 Treatment paused and needles flushed, capped, and secured with tape and pt to CT via bed with [facility] nurse. Dr Gibson notified.
[2024-12-12] MEDS: iohexol 350 mg/mL 500 mL Btl (per mL) IV (14:18)
[2024-12-12] MEDS: heparin, porcine 1,000 unit/mL INJ 10 mL 1000 UNIT IV (15:00)
[2024-12-12 15:50] LABS: Troponin 5 6HR 68.00 ng/L (0-15)
[2024-12-12 15:59] LABS: Troponin 5 6HR Delta -3.00 ng/L (0-12)
--- NOTE | 2024-12-12 18:29 | PC.HD ---
14:[address] scan, needle patency verified, and treatment resumed.
[2024-12-12] MEDS: ranolazine (12HR) 500 mg Tablet 1000 MG PO (19:18)
--- NOTE | 2024-12-12 19:59 | PM.CONSULT ---
Providers/Reason For Consult Consulting Physician/Specialty*: [facility]/Nephrology Reason for Consult*: ESRD Attending Physician: Rafiq Mariee MD Primary Care Provider: Dez Evans MD History of Present Illness History of Present Illness Rei Queen II is a 54 year old male Rei Queen II is a 54 year old male Patient is a 54-year-old male with past medical history of coronary artery disease and multiple stents, DVT, diabetes, end-stage renal disease on dialysis per TTS schedule presented to the emergency department due to complaints of AMS. Labs reviewed Review of Systems Narrative: negative Medications/Allergies Home Medications ?Medication ?Instructions ?Recorded ?Confirmed ?Last Taken ?Type diphenhydramine HCl 25 mg tablet 50 mg PO DAILY PRN Allergy Symptoms 05/02/23 12/12/24 12/11/24 07:00 History (Benadryl Allergy) insulin lispro 100 unit/mL See Rx Instructions .Route .COMPLEX 05/02/23 12/12/24 12/11/24 21:00 History subcutaneous pen (Humalog KwikPen (U-100) Insulin) nitroglycerin 0.4 mg sublingual 0.4 mg sublingual Q5M PRN Chest 08/27/23 12/12/24 12/07/24 Rx tablet (Nitrostat) Pain #25 tabs vit B,C-folic ac 800 mcg-zinc 12.5 1 tab PO BEDTIME 10/29/23 12/12/24 12/10/24 21:00 History mg-selen-D3 2,000 unit-vit E tablet (RenaPlex-D) tizanidine 2 mg tablet 2 mg PO BID PRN Muscle Spasm 03/24/24 12/12/24 12/10/24 History bumetanide 2 mg tablet 2 mg PO BID 04/15/24 12/12/24 12/11/24 07:00 History fluoxetine 40 mg capsule 40 mg PO QAM #30 caps 04/20/24 12/12/24 12/11/24 07:00 Rx promethazine 25 mg tablet 25 mg PO Q6H PRN Nausea 04/21/24 12/12/24 12/10/24 History acetaminophen 500 mg tablet 1,000 mg PO QID PRN Pain 06/04/24 12/12/24 12/05/24 History (Tylenol Extra Strength) hydrocodone 5 mg-acetaminophen 325 1 tab PO Q6H PRN Pain, Moderate 06/16/24 12/12/24 12/09/24 History mg tablet metoprolol tartrate 25 mg tablet 12.5 mg PO BID 06/16/24 12/12/24 12/10/24 18:00 History tirzepatide 15 mg/0.5 mL See Rx Instructions .Route 11/18/24 12/12/24 12/06/24 14:00 Rx subcutaneous pen injector .COMPLEX #2 mL (Jennifer) apixaban 2.5 mg tablet (Eliquis) 2.5 mg PO BID 12/08/24 12/12/24 12/11/24 07:00 History gabapentin 300 mg capsule 300 mg PO BID 12/08/24 12/12/24 12/07/24 History insulin degludec 200 unit/mL (3 40 unit SUBCUT QAM 12/08/24 12/13/24 12/10/24 21:00 History mL) subcutaneous pen (Tresiba FlexTouch U-200 insulin) levothyroxine 88 mcg tablet 88 mcg PO QAM 12/08/24 12/12/24 12/10/24 07:00 History ranolazine 1,000 mg 1,000 mg PO BID 12/08/24 12/12/24 12/10/24 07:00 History tablet,extended release,12 hr clopidogrel 75 mg tablet (Plavix) 75 mg PO DAILY 30 days #30 tabs 12/09/24 12/12/24 12/11/24 07:00 Rx trazodone 100 mg tablet 100 mg PO BEDTIME PRN insomia 12/12/24 12/13/24 12/10/24 21:00 History atorvastatin 40 mg tablet 40 mg PO DAILY 12/13/24 12/13/24 12/09/24 History bupropion HCl 300 mg 24 hr tablet, 300 mg PO QAM 12/13/24 12/13/24 12/09/24 History extended release carvedilol 6.25 mg tablet 6.25 mg PO BID 12/13/24 12/13/24 12/09/24 History isosorbide mononitrate 30 mg 30 mg PO DAILY 12/13/24 12/13/24 12/09/24 History tablet,extended release 24 hr nifedipine 30 mg tablet,extended 30 mg PO DAILY 12/13/24 12/13/24 12/09/24 History release sevelamer carbonate 800 mg tablet 800 mg PO TIDWM 12/13/24 12/13/24 Unknown History tamsulosin 0.4 mg capsule 0.4 mg PO DAILY 12/13/24 12/13/24 12/09/24 History Allergies Allergy/AdvReac Type Severity Reaction Status Date / Time Iodinated Contrast Media Allergy Severe ALGY-Difficulty Verified 12/12/24 08:04 Breathing iodine Allergy Severe ALGY-Difficulty Verified 12/12/24 08:04 Breathing metoclopramide (From Reglan) Allergy Severe ALGY-Difficulty Verified 12/12/24 08:04 Breathing nalbuphine (From Nubain) Allergy Severe ADR-Diarrhe Verified 12/12/24 08:04 a naproxen (From Naprosyn) Allergy Severe ADR-Vomitin Verified 12/12/24 08:04 g Sulfa (Sulfonamide Allergy Severe ALGY-Difficulty Verified 12/12/24 08:04 Antibiotics) Breathing ketorolac Allergy Intermediate ADR-Nausea Verified 12/12/24 08:04 ondansetron (From Zofran) Allergy Intermediate ADR-Abdominal Verified 12/12/24 08:04 Pain prochlorperazine (From Allergy Intermediate ADR-Irritab Verified 12/12/24 08:04 Compazine) le codeine AdvReac Severe ALGY-Anaphy Verified 12/12/24 08:04 laxis haloperidol (From Haldol) AdvReac Intermediate ADR-Irritab Verified 12/12/24 08:04 le Current Medications Generic Name Dose Route Start Last Admin Trade Name Juarezq PRN Reason Stop Dose Admin Apixaban 2.5 mg 12/12/24 17:00 12/12/24 19:18 Apixaban 5 Mg Tablet PO 2.5 mg BID@0500,1700 RANDY Administration Buspirone HCl 10 mg 12/12/24 18:00 12/12/24 19:18 Buspirone 10 Mg Tablet PO 10 mg BID RANDY Administration Docusate Sodium 100 mg 12/12/24 18:00 12/12/24 19:18 Docusate Sodium 100 Mg Capsule PO 100 mg BID RANDY Administration Famotidine 20 mg 12/12/24 18:00 12/12/24 19:18 Famotidine 20 Mg Tablet PO 20 mg BID RANDY Administration Gabapentin 300 mg 12/12/24 18:00 12/12/24 19:18 Gabapentin 300 Mg Capsule PO 300 mg BID RANDY Administration Insulin Human Lispro 0 unit 12/12/24 12:00 12/12/24 19:19 Insulin Lispro 100 Unit/1 Ml SUBCUT 2 unit WM&BEDTIME RANDY Administration Protocol Ranolazine 1,000 mg 12/12/24 18:00 12/12/24 19:18 Ranolazine (12hr) 500 Mg Tablet PO 1,000 mg BID RANDY Administration PFSH Acute PFSH: Medical History (Updated 12/12/24 @ 13:11 by Rafiq Mariee MD) Contrast media allergy Thoracic disc disease Non-pressure chronic ulcer of other part of left foot limited to breakdown of skin Bilateral pes planus Hammertoe of left foot Rupture of extensor tendon of foot Kidney failure DM2 (diabetes mellitus, type 2) ICD (implantable cardioverter-defibrillator) in place Atherosclerotic heart disease of wiyot coronary artery with other forms of angina pectoris hx of CAD with prior stenting of proximal LAD, LCx, RCA ESRD (end stage renal disease) Hypothyroidism Generalized anxiety disorder Major depressive disorder, recurrent severe without psychotic features Pericarditis Elevated troponin Essential hypertension Psychiatric care 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 mellitus CRF (chronic renal failure) Chronic right SI joint pain Chronic systolic heart failure UTI (urinary tract infection) Peripheral arterial disease PVD (peripheral vascular disease) Worsening angina Angina at rest Uremic encephalopathy D-dimer, elevated Acute on chronic congestive heart failure History of pulmonary embolism Acute kidney injury superimposed on CKD GERD (gastroesophageal reflux disease) Alcohol use disorder, moderate, in sustained remission DVT (deep venous thrombosis) (~03/2020) Proximal left subclavian, basilic and brachial veins, started eliquis this stay, felt present prior to admission Chronic kidney disease -baseline Cr appears to be around 1.5 Ischemic cardiomyopathy Onychodystrophy Chronic anticoagulation Eliquis Osteoarthritis of spine Hyperlipidemia Depression Anemia Foot drop, left H/O acute myocardial infarction Surgical History Peritoneal dialysis catheter in situ (06/15/21) History of appendectomy 1995 History of excision of mass 06/08/2019: Subcutaneous mass on back History of removal of Port-a-Cath Port-A-Cath in place H/O vasectomy Hx of cholecystectomy History of coronary artery stent placement 5x H/O skin graft History of inguinal hernia repair, bilateral 2000 H/O removal of testicle left H/O colonoscopy (11/14/20) 08/2015 H/O esophagogastroduodenoscopy (11/14/20) 08/2015 Family History Grandfather Cancer skin cancer Parkinson disease Brother Hypertension Father Heart disease Mother Hypertension Stroke Aneurysm Grandmother Aneurysm Other Crohn's disease Denies family history of Anesthesia complication Bleeding disorder Social History Smoking and tobacco/nicotine status: never used tobacco/nicotine Second hand smoke exposure: No Alcohol intake: former Year of sobriety/quit date alcohol: 2015 Former alcohol use details: Only holidays - last use 05.19.2015 Substance/Drug Use: never Adopted: No Caregiver/support person: No Lives independently: Yes Household members: spouse Housing: Apartment Marital status: Number of children: 2 Number of grandchildren: 0 Highest education level completed: High School Graduate service: No Current occupational status: disabled Pets and animals: Yes Pets & animals: dog(s) Leisure activites: games and other Leisure activities details: watching TV Sexually active: Yes Do you think of yourself as: Straight/Heterosexual Current gender identity: Male Shannon/Gnosticist: Bahai Special shannon needs: No Agree to transfusion: Yes Vitals/I&O/Wt Last Vital Signs Temp 98.3 F 12/12/24 19:50 Pulse 119 H 12/12/24 19:50 Resp 18 12/12/24 19:50 BP 133/88 12/12/24 19:50 Pulse Ox 98 12/12/24 19:50 O2 Del Method Room Air 12/12/24 19:50 12/12/24 12/12/24 12/12/24 06:59 14:59 22:59 Intake Total 120 / 120 980 / 1100 Output Total 3365 / 3365 Balance 120 / 120 -2385 / -2265 Weight last 48 hrs Weight 83.9 kg Weight 86.092 kg Weight 90.718 kg Physical Exam Narrative: awake , alert PEERLA S1S2 RRR per report Lung clear per report No edema Data 12/13/24 08:46 12/13/24 08:46 Micro: Microbiology 12/12/24 09:15 Blood Culture - Preliminary Blood SPECIMEN COLLECTED 12/12/24 08:39 Blood Culture - Preliminary Blood SPECIMEN COLLECTED A&P Assessment and plan 1. ESRD (end stage renal disease): Plan: 1. End-stage renal disease: Will continue dialysis per TTS schedule and ultrafiltration as tolerated 2. Hypertension , Resume home meds 3. AMS , resolved 4. Anemia: Hemoglobin at goal per CKD 5. MBD: Will resume home binders 6. Hyperkalemia , HD as above Patient evaluated using audiovisual cart. Time spent 40 minutes PDMP PDMP Reviewed: Not Reviewed Consult Attestations Medical Necessity Statement: per medicine Coding Level of Care Code Acute Code for Chg Fwd Diagnoses ESRD (end stage renal disease) N18.6
[2024-12-12] MEDS: insulin glargine 100 units/1 mL 36 UNIT SUBCUT (22:12)
[2024-12-13] VITALS: BP 119/71; PULSE 113; RESP 17; TEMP 36.9; O2SAT 97
[2024-12-13 03:56] VITALS: BP 125/69; PULSE 101; RESP 17; TEMP 36.4; O2SAT 96
[2024-12-13 06:00] VITALS: PULSE 112
[2024-12-13 07:27] VITALS: BP 109/75; PULSE 90; RESP 17; TEMP 36.6; O2SAT 97
[2024-12-13] MEDS: ranolazine (12HR) 500 mg Tablet 1000 MG PO (08:32)
[2024-12-13 08:55] LABS: Hematocrit 40.2 % (37-53); Hemoglobin 13.90 g/dL (11.27-16.99); Mean Corpuscular HGB Conc 34.6 g/dL (30-55); Mean Corpuscular Hemoglobin 32.6 pg (27-33); Mean Corpuscular Volume 94.1 fl (82-101); Nucleated Red Blood Cells % 0 %; Platelet Count 300 10^3/cmm (157-399); Red Blood Count 4.27 10^6/uL (3.85-5.65); White Blood Count 8.48 10^3/uL (3.29-11.43)
[2024-12-13 09:15] LABS: Albumin Level 4.0 g/dL (3.5-5.2); Alkaline Phosphatase 150 U/L (40-130); Blood Urea Nitrogen 43 mg/dL (6-20); Calcium 10.0 mg/dL (8.5-10.5); Carbon Dioxide 22 mmol/L (22-29); Chloride 90 mmol/L (98-107); Globulin 3.7 g/dL (1.3-4.6); Glucose 201 mg/dL (65-115); Magnesium 2.1 mg/dL (1.7-2.3); Osmolality Calculated 291 mOsm/kg (285-295); Sodium 132 mmol/L (136-145); Total Protein 7.7 g/dL (6.6-8.7)
[2024-12-13 09:18] LABS: Anion Gap 24.2 (5-19); Creatinine Clr Calc Pharmacy 18.3254
[2024-12-13 09:19] LABS: Alanine Aminotransferase 12 U/L (0-41); Aspartate Amino Transferase 23 U/L (0-40); Potassium 4.2 mmol/L (3.5-5.1)
[2024-12-13 09:33] LABS: Cholesterol 221 mg/dL (0-200); HDL Cholesterol 44 mg/dL (60-100); Triglycerides 182 mg/dL (0-150)
[2024-12-13 09:40] LABS: Procalcitonin 0.32 ng/mL (0-0.5)
--- NOTE | 2024-12-13 10:56 | P.DS_ITS ---
Discharge Providers Date of Admission: 12/12/24 09:56 Date of Discharge: December 13, 2024 Attending Provider at Admission: Rafiq Mariee MD Attending Provider at Discharge: Rafiq Mariee MD Primary Care Provider: Dez Evans MD Diagnoses at Discharge Discharge Diagnosis 1. Forgetfulness: 2. Major depressive disorder, recurrent severe without psychotic features: 3. Generalized anxiety disorder: 4. Uncontrolled hypertension: 5. Atherosclerotic heart disease of [place] coronary artery with other forms of angina pectoris: 6. ESRD (end stage renal disease): 7. DM2 (diabetes mellitus, type 2): 8. Hypothyroidism: Reason for Visit [facility] Rei Queen II is a 54 year old male with past medical history of CAD and multiple stents, most recently placed in May 2024, history of DVT on Eliquis, diabetes mellitus, CKD on maintenance hemodialysis Saturday. Patient presents to the hospital today to the ER with complaints of confusion which has been going on and off and getting worse since Saturday. Today Saturday. Patient has been to the ER at least 3 times since then with episodes of confusion. History confirmed with his spouse. She also states that there have been times and has been confused, getting forgetful in the past but has gotten worse since Saturday. She denies any changes in his medications. He denies any nausea, vomiting, diarrhea, fever. States he has been compliant with medications. States has been going to dialysis regularly. Patient was admitted to the hospital further evaluation and management. Multiple etiologies including stroke, infectious causes were ruled out. Details med rec was done with patient and spouse at bedside. It seems patient has been taking Benadryl 50 mg 4-5 times a day as needed for allergy symptoms, trazodone 200 mg as needed for insomnia along with [place] 2-3 times a day. Trazodone was changed to 100 mg as needed, [place] was continued at home dose. Benadryl was withheld. Patient responded well to the treatment and was at his baseline mentation the next day with spouse at bedside. He underwent dialysis during hospitalization. Otherwise hospitalization was unremarkable. He is been discharged home in hemodynamically stable condition. Medication going forward were discussed in detail with the patient. All the questions were answered. Going forward he is to take Benadryl only 1 time a day as needed with as less of frequency as possible, take trazodone not more than 100 mg as needed every nightly. Continue taking his BuSpar at home. His home dose of Imdur was changed to as needed for systolic of more than 160 mmHg. Physical Exam Narrative: General: No acute distress, AO x 3 HEENT: PERRLA, pupils bilaterally equal and reactive Chest: Normal vesicular breath sounds, no added sounds, equal good air entry bilaterally CVS: S1-S2 regular, no murmurs, no tachycardia, no gallops, no rubs Abdomen: Soft, nontender, no organomegaly, bowel sounds present Neuro: No focal deficits, no facial deformity, AO x3, power 5/5 in all limbs Discharge Data Studies Completed and Pending Completed Studies During Hospitalization Category Date Time Status CT head wo/w con [id number] Routine Cat Scan 12/12/24 11:48 Completed XR chest 1V portable [id number] Stat Exams 12/12/24 07:55 Completed Pending at discharge Category Date Time Status Blood Culture Stat Lab 12/12/24 09:15 Results Complete Blood Count w/Auto AM LABS Lab 12/14/24 04:00 Ordered Complete Blood Count w/Auto AM LABS Lab 12/15/24 04:00 Ordered Comprehensive Metabolic Panel AM LABS Lab 12/14/24 04:00 Ordered Comprehensive Metabolic Panel AM LABS Lab 12/15/24 04:00 Ordered Magnesium AM LABS Lab 12/14/24 04:00 Ordered Magnesium AM LABS Lab 12/15/24 04:00 Ordered Phosphorus AM LABS Lab 12/14/24 04:00 Ordered Phosphorus AM LABS Lab 12/15/24 04:00 Ordered Radiology Impressions Chest X-Ray 12/12/24 07:55 IMPRESSION: Mild left basilar atelectasis. No focal consolidation. Head CT 12/12/24 11:48 IMPRESSION: No acute intracranial abnormality. Microbiology 12/12/24 09:15 Blood Blood Culture - Preliminary NEGATIVE TO DATE 12/12/24 08:39 Blood Blood Culture - Preliminary NEGATIVE TO DATE Laboratory Results WBC 8.48 10^3/uL (3.29-11.43) 12/13/24 08:46 RBC 4.27 10^6/uL (3.85-5.65) 12/13/24 08:46 Hgb 13.90 g/dL (11.27-16.99) 12/13/24 08:46 Hct 40.2 % (37-53) 12/13/24 08:46 MCV 94.1 fl (82-101) 12/13/24 08:46 MCH 32.6 pg (27-33) 12/13/24 08:46 MCHC 34.6 g/dL (30-55) 12/13/24 08:46 RDW 14.0 % (12.1-15.1) 12/13/24 08:46 Plt Count 300 10^3/cmm (157-399) 12/13/24 08:46 MPV 10.0 fL (7.4-10.4) 12/13/24 08:46 Neut % (Auto) 72.2 % 12/13/24 08:46 Lymph % (Auto) 16.3 % 12/13/24 08:46 [place] % (Auto) 10.4 % 12/13/24 08:46 Eos % (Auto) 0.2 % 12/13/24 08:46 Baso % (Auto) 0.2 % 12/13/24 08:46 Neut # (Auto) 6.12 10^3/uL (1.8-7.7) 12/13/24 08:46 Lymph # (Auto) 1.4 10^3/uL (0.8-4.8) 12/13/24 08:46 [place] # (Auto) 0.9 10^3/uL (0.2-0.9) 12/13/24 08:46 Eos # (Auto) 0.0 10^3/uL (0.0-0.8) 12/13/24 08:46 Baso # (Auto) 0.0 10^3/uL (0.0-0.1) 12/13/24 08:46 Nucleated RBC % (auto) 0 % 12/13/24 08:46 Nucleated RBCs # 0.0 /100WBC 12/13/24 08:46 Specimen Type Arterial 12/12/24 08:23 Sample Site Radial, left 12/12/24 08:23 ABG pH 7.52 (7.35-7.45) H 12/12/24 08:23 ABG pCO2 30.2 mmHg (35-45) L 12/12/24 08:23 ABG pO2 80.8 mmHg (80.0-100.0) 12/12/24 08:23 ABG PO2/FiO2 Ratio 384 12/12/24 08:23 ABG HCO3 24.6 mmol/L (22-26) 12/12/24 08:23 ABG O2 Saturation 96.1 12/12/24 08:23 ABG Base Excess 2.3 mmol/L (-2.0-2.0) H 12/12/24 08:23 Scottie Test Pos 12/12/24 08:23 A-a O2 Gradient 3.9 mmHg (5-10) L 12/12/24 08:23 Hematocrit 38.0 % (42-52) L 12/12/24 08:23 Hgb O2 Saturation 94.9 % (95-100) L 12/12/24 08:23 Carboxyhemoglobin 0.5 %THgb (0.4-20.1) 12/12/24 08:23 Methemoglobin 0.8 % (0.4-1.5) 12/12/24 08:23 Total Hemoglobin 12.4 g/dL (14-18) L 12/12/24 08:23 Sodium 142.0 mmol/L (131-143) 12/12/24 08:23 Potassium 3.9 mmol/L (3.5-5.0) 12/12/24 08:23 Glucose 214.0 mg/dL (70-115) H 12/12/24 08:23 Ionized Calcium 1.2 mmol/L (1.1-1.4) 12/12/24 08:23 O2 Delivery Device Room air 12/12/24 08:23 FiO2 21.0 % 12/12/24 08:23 Telegraph Office Route Aide ID [place] 12/12/24 08:23 Sodium 132 mmol/L (136-145) L 12/13/24 08:46 Potassium 4.2 mmol/L (3.5-5.1) 12/13/24 08:46 Chloride 90 mmol/L (98-107) L 12/13/24 08:46 Carbon Dioxide 22 mmol/L (22-29) 12/13/24 08:46 Anion Gap 24.2 (5-19) H 12/13/24 08:46 BUN 43 mg/dL (6-20) H 12/13/24 08:46 Creatinine 4.5 mg/dL (0.7-1.2) H 12/13/24 08:46 GFR Calculation 13.6 mL/min (90-130) L 12/13/24 08:46 Glucose 201 mg/dL (65-115) H 12/13/24 08:46 POC Glucose 202 mg/dL (70-110) H 12/13/24 06:30 Estimat Average Glucose 131 12/12/24 09:15 Hemoglobin A1c 6.2 % (4.0-6.0) H 12/12/24 09:15 Calculated Osmolality 291 mOsm/kg (285-295) 12/13/24 08:46 Lactic Acid 1.1 mmol/L (0.5-2.2) 12/12/24 10:41 Calcium 10.0 mg/dL (8.5-10.5) 12/13/24 08:46 Phosphorus 3.8 mg/dL (2.5-4.5) 12/13/24 08:46 Magnesium 2.1 mg/dL (1.7-2.3) 12/13/24 08:46 Total Bilirubin 0.7 mg/dL (0.15-1.2) 12/13/24 08:46 AST 23 U/L (0-40) 12/13/24 08:46 ALT 12 U/L (0-41) 12/13/24 08:46 Alkaline Phosphatase 150 U/L (40-130) H 12/13/24 08:46 Ammonia 28 umol/L (16-60) 12/12/24 09:15 Troponin T Baseline 71 ng/L (0-15) H 12/12/24 09:15 Troponin T 120 Minute 70.46 ng/L (0-15) H 12/12/24 10:41 Delta Troponin T -0.54 ABS# (0-10) L 12/12/24 10:41 Troponin T Hi Sens 6Hr 68.00 ng/L (0-15) H 12/12/24 15:13 Troponin T Hi Sens 6Hr Delta -3.00 ng/L (0-12) L 12/12/24 15:13 Total Protein 7.7 g/dL (6.6-8.7) 12/13/24 08:46 Albumin 4.0 g/dL (3.5-5.2) 12/13/24 08:46 Globulin 3.7 g/dL (1.3-4.6) 12/13/24 08:46 Triglycerides 182 mg/dL (0-150) H 12/13/24 08:46 Cholesterol 221 mg/dL (0-200) H 12/13/24 08:46 LDL Cholesterol, Calc 141 mg/dL (50-129) H 12/13/24 08:46 HDL Cholesterol 44 mg/dL (60-100) L 12/13/24 08:46 LDL/HDL Ratio 3.20 RATIO (0.00-3.22) 12/13/24 08:46 Cholesterol/HDL Ratio 5.02 mg/dL (1.0-5.00) H 12/13/24 08:46 Vitamin B12 1155 pg/mL (232-1245) 12/12/24 10:41 Procalcitonin 0.32 ng/mL (0-0.5) 12/13/24 08:46 TSH 2.84 uIU/mL (0.27-4.20) 12/12/24 10:41 Urine Color Yellow (Yellow) 12/12/24 10:33 Urine Appearance Clear (CLEAR) 12/12/24 10:33 Urine pH 8.5 (5-7) A 12/12/24 10:33 Ur Specific [place] 1.012 (1.005-1.030) 12/12/24 10:33 Urine Protein 2+ (Negative) A 12/12/24 10:33 Urine Glucose (UA) Trace (Normal) H 12/12/24 10:33 Urine Ketones Trace (Negative) 12/12/24 10:33 Urine Blood Negative (Negative) 12/12/24 10:33 Urine Nitrate Negative (Negative) 12/12/24 10:33 Urine Bilirubin Negative (Negative) 12/12/24 10:33 Urine Urobilinogen 1.0 mg/dL (Negative) 12/12/24 10:33 Ur Leukocyte Esterase Negative (Negative) 12/12/24 10:33 Urine RBC 0-2 /hpf (0-2) 12/12/24 10:33 Urine WBC 0-5 /hpf (0-5) 12/12/24 10:33 Ur Squamous Epith Cells 0-5 /hpf (0-5) 12/12/24 10:33 Amorphous Sediment Not Reportable 12/12/24 10:33 Urine Bacteria None seen /hpf (NONE) 12/12/24 10:33 Hyaline Casts 0.40 /lpf 12/12/24 10:33 Urine Opiates Screen Positive ng/mL (Negative) H 12/12/24 10:34 Ur Barbiturates Screen Negative ng/mL (Negative) 12/12/24 10:34 Ur Phencyclidine Scrn Negative ng/mL (Negative) 12/12/24 10:34 Ur Amphetamines Screen Negative ng/mL (Negative) 12/12/24 10:34 U Benzodiazepines Scrn Negative ng/mL (Negative) 12/12/24 10:34 Urine Cocaine Screen Negative ng/mL (Negative) 12/12/24 10:34 U Marijuana (THC) Screen Negative ng/mL (Negative) 12/12/24 10:34 Ethyl Alcohol < 10 mg/dL (0-10) 12/12/24 10:41 Serum Ketones Negative (Negative) 12/12/24 09:15 Influenza A (PCR) Negative (Negative) 12/12/24 10:35 Influenza Type B (PCR) Negative (Negative) 12/12/24 10:35 RSV (PCR) Negative (Negative) 12/12/24 10:35 SARS-CoV-2 (PCR) Negative (Negative) 12/12/24 10:35 Vitals Last Vital Signs Temp 97.9 F 12/13/24 07:27 Pulse 90 12/13/24 07:27 Resp 17 12/13/24 07:27 BP 109/75 12/13/24 07:27 Pulse Ox 97 12/13/24 07:27 O2 Del Method Room Air 12/13/24 03:56 Discharge Plan Discharge Patient Disposition: Home Condition: Stable Prescriptions: Continued fluoxetine 40 mg capsule 40 mg PO QAM Qty: 30 11RF nitroglycerin [Nitrostat] 0.4 mg tablet, sublingual 0.4 mg SUBLINGUAL Q5M PRN (Reason: Chest Pain) Qty: 25 2RF Rx Instructions: do not exceed 3 doses per episode Janicejadar 15 mg/0.5 mL pen injector See Rx Instructions .ROUTE .COMPLEX Qty: 2 2RF Dose Instruction: inject 15mg (0.5ml) SUBCUTANEOUSLY EVERY 7 DAYS Rx Instructions: inject 15mg (0.5ml) SUBCUTANEOUSLY EVERY 7 DAYS ON SATURDAY. tizanidine 2 mg tablet 2 mg PO BID PRN (Reason: Muscle Spasm) promethazine 25 mg tablet 25 mg PO Q6H PRN (Reason: Nausea) diphenhydramine HCl [Benadryl Allergy] 25 mg Tablet 50 mg PO DAILY PRN (Reason: Allergy Symptoms) insulin lispro [Humalog KwikPen Insulin] 100 unit/mL insulin pen See Rx Instructions .ROUTE .COMPLEX Rx Instructions: Sliding scale subcutaneously twice a day as needed. RenaPlex-D 800 mcg-12.5 mg -2,000 unit tablet 1 tab PO BEDTIME acetaminophen [Tylenol Extra Strength] 500 mg Tablet 1,000 mg PO QID PRN (Reason: Pain) hydrocodone-acetaminophen 5-325 mg tablet 1 tab PO Q6H PRN (Reason: Pain, Moderate) metoprolol tartrate 25 mg tablet 12.5 mg PO BID levothyroxine 88 mcg tablet 88 mcg PO QAM gabapentin 300 mg capsule 300 mg PO BID Eliquis 2.5 mg tablet 2.5 mg PO BID insulin degludec [Tresiba FlexTouch U-200] 200 unit/mL (3 mL) insulin pen 40 unit SUBCUT QAM ranolazine 1,000 mg tablet extended release 12 hr 1,000 mg PO BID clopidogrel [Plavix] 75 mg tablet 75 mg PO DAILY 30 Days Qty: 30 0RF trazodone 100 mg tablet 100 mg PO BEDTIME PRN (Reason: insomia ) sevelamer carbonate 800 mg Tablet 800 mg PO TIDWM Rx Instructions: must administer with a meal/food atorvastatin 40 mg Tablet 40 mg PO DAILY tamsulosin 0.4 mg Capsule 0.4 mg PO DAILY bupropion HCl 300 mg Tablet Extended Release 24 Hr 300 mg PO QAM Changed isosorbide mononitrate 30 mg Tablet Extended Release 24 Hr 30 mg PO DAILY PRN (Reason: Systolic blood pressure more than 150 mmHg) Qty: 10 0RF Rx Instructions: Do not take medication on dialysis days Discontinued bumetanide 2 mg tablet 2 mg PO BID carvedilol 6.25 mg Tablet 6.25 mg PO BID Rx Instructions: must administer with a meal/food nifedipine 30 mg Tablet Extended Release 30 mg PO DAILY Discharge Order = DC NOW: Discharge Order (Routine); Ordered 12/13/24 Ordered By: Rafiq Mariee Referrals: Dez Evans MD [Primary Care Provider, Family Practice] Referral Note: Please contact your doctors office for the need for a follow- up appointment to be scheduled. Erasmo Rodrigues MD [Physician, General Surgery] - 1 month Referral Note: Follow-up for port removal. Discharge Diet: Usual diet and Cardiac Discharge Activity: Resume usual activity and Increase activity as tolerated Patient Instructions: Altered Mental Status (ED), Opioid Safety, Patient Portal & Sunny Instructions Activity Restrictions/Additional Instructions: Please do not take trazodone more than 100 mg only as needed for insomnia. Please do not take Benadryl more than 1 time a day as needed for allergy symptoms. Only take metoprolol. Do not take Coreg. Check your blood pressures daily at home and maintain a blood pressure diary. Goal blood pressure is less than 140/90 mmHg with mean over 65. Do not take nifedipine. Take Imdur only as needed for a systolic of more than 160 mmHg. Discharge Attestations Time Spent in Discharge Care*: greater than 30 min Specific Discharge Activities: educating patient, educating and/or supporting family/caregiver, discussing with pcp/other providers, discussing with social work case manager/social workers/dc planners, documenting/other paperwork and evaluating patient/reviewing data Status at Discharge: Cognitive status at discharge: cognitively intact , Behavioral status at discharge: cooperative and independent in ADL's , Functional status at discharge: independent ambulation , Overall status at discharge: patient is back to baseline Quality Metrics Clinical Quality Measures [ No reported AMI, CVA or VTE this stay] Coding Level of Care Code 95237 Total time (in minutes) for Discharge: 65 Diagnoses Forgetfulness R68.89 Major depressive disorder, recurrent severe without psychotic features F33.2 Generalized anxiety disorder F41.1 Uncontrolled hypertension I10 Atherosclerotic heart disease of [place] coronary 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 ESRD (end stage renal disease) N18.6 DM2 (diabetes mellitus, type 2) E11.9 Hypothyroidism E03.9
[2024-12-13 11:55] VITALS: BP 141/62; PULSE 88; RESP 18; TEMP 36.6; O2SAT 92
--- NOTE | 2024-12-13 11:57 | P.PN_ITS ---
Subjective 2 Subjective: no new c/o Medications: Reviewed: Yes Vitals/I&O/Wt Last Vital Signs Temp 97.8 F 12/13/24 11:55 Pulse 88 12/13/24 11:55 Resp 18 12/13/24 11:55 BP 141/62 12/13/24 11:55 Pulse Ox 92 12/13/24 11:55 O2 Del Method Room Air 12/13/24 03:56 12/12/24 12/13/24 12/13/24 22:59 06:59 14:59 Intake Total 1220 / 1340 620 / 1960 360 / 360 Output Total 3365 / 3365 Balance -2145 / -2025 620 / -1405 360 / 360 Weight last 48 hrs Weight 84.459 kg Weight 83.9 kg Weight 86.092 kg Weight 90.718 kg Physical Exam 2 Narrative: awake , alert PEERLA S1S2 RRR per report Lung clear per report No edema Data 12/13/24 08:46 12/13/24 08:46 Micro: Microbiology 12/12/24 09:15 Blood Culture - Preliminary Blood NEGATIVE TO DATE 12/12/24 08:39 Blood Culture - Preliminary Blood NEGATIVE TO DATE A&P Assessment and plan 1. ESRD (end stage renal disease): Plan: 1. End-stage renal disease: Will continue dialysis per TTS schedule and ultrafiltration as tolerated 2. Hypertension , Resume home meds 3. AMS , resolved 4. Anemia: Hemoglobin at goal per CKD 5. MBD: Will resume home binders 6. Hyperkalemia , HD as above Patient evaluated using audiovisual cart. Time spent 40 minutes PDMP PDMP Reviewed: Not Reviewed Attestations 2 Medical Necessity Statement*: per [place] Coding Level of Care Code Acute Code for Chg Fwd Diagnoses ESRD (end stage renal disease) N18.6
--- NOTE | 2024-12-13 13:18 | PC.NURSE ---
Discharge paperwork discussed with patient and spouse. When discussing medications with the patient, the ordered 2mg bumex PO BID was discontinued and patient and spouse both inquired why the medication had been stopped and stated the patient needed to be on it. This nurse reached out to Dr. Mariee about the patient's inquiry, and patient had told Dr. Mariee that he was no longer taking the medication while he was still confused. Dr. Mariee said he would restart the medication as previously ordered. This nurse thoroughly went over medication list with patient and spouse and educated the patient to take only the medications ordered.
[2024-12-13 13:23] VITALS: BP 141/62; PULSE 88; RESP 18; TEMP 36.6; O2SAT 92
[2024-12-16 00:42] LABS: Bacillus cereus group Not Detected (NOT DETECT); Bacillus subtillis group Not Detected (NOT DETECT); Corynebacterium Not Detected (NOT DETECT); Cutibacterium acnes (P.acnes) Not Detected (NOT DETECT); Enterococcus faecalis Not Detected (NOT DETECT); Enterococcus faecium Not Detected (NOT DETECT); Listeria Not Detected (NOT DETECT); Micrococcus Not Detected (NOT DETECT); Pan Candida Not Detected (NOT DETECT); Pan Gram-Negative Not Detected (NOT DETECT); Staphylococcus epidermidis Not Detected (NOT DETECT); Staphylococcus lugdunensis Not Detected (NOT DETECT); Staphylococcus species Not Detected (NOT DETECT); Streptococcus anginosus group Not Detected (NOT DETECT); Streptococcus pyogenes Not Detected (NOT DETECT); Streptococcus species Not Detected (NOT DETECT)
--- OUTSIDE RECORDS SUMMARY | 2024-12-18 02:46 | XMS_ITS | Encounter Summary ---
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
--- OUTSIDE RECORDS SUMMARY | 2024-12-18 02:46 | XMS_ITS | Encounter Summary ---
Author Organization [facility] Address [address] [place] [address] Phone Care Team Providers Care High School Math Tutor Name Role Phone Kp Montanez DO Primary Care Provider Unavaila ble Encounter Details Date Type Department Care Team (Late st Contact Info) Description 09/29/2024 TCM in Dialysis Clinic [facility] [address] [place] [address] Ayad Monahan NP [address] [place] [address] Social History Tobacco Use Types [...] 09/29/2024 The patient was seen for a byvk-yq-wuse visit as part of Transitional Care Management services. Attending Engagement Executive: RITA MENENDEZ Dialysis Location: [facility] Schedule: Shift: 1 INTERACTIVE CONTACT Contact [...] 98.1*F Current Dialysis Vitals BP Sit: 159/81 AP/MAINTENANCE TECHNICIAN 2ND SHIFT: 198/162 Pulse: 86 CARE COORDINATION No follow-up appointments noted. COMMENTS: no new referrals. EDUCATION Education relevant to the discharge diagnosis provided to the patient or caregiver IMPRESSION & PLAN COMMENTS: 1.hemodialysis access problem; fistulogram completed. Now working well. 2. ESRD on HD: Continue HD TTS. VISIT DIAGNOSES CPT Code 27754 - High complexity, seen within 7 days [...] on filedocumented in this encounter Care Teams High School Math Tutor Relationship Specialty Start Date End Date Kp Montanez DO PCP - General Internal Medicine 01/07/23 documented as of this encounter
--- OUTSIDE RECORDS SUMMARY | 2024-12-18 02:46 | XMS_ITS | Clinical Summary ---
Author Organization [facility] Address [address] [place] [address] Care Team Providers Care Plaster Lather Name Role Phone Kp Montanez Primary Care [...] for Pain. 15 Tablet 04/10/2018 11:19 AM HOME DECORATOR 8 Active nitroglycerin (NITROSTAT) 0.4 mg Tablet, [...] tablet Take 88 mcg by mouth daily antique repairer. Active metFORMIN (GLUCOPHAGE) 500 mg tablet Take 500 mg by mouth 2 times daily with meals. Active isosorbide mononitrate (IMDUR) 30 mg Extended Release 24 hour tablet Take 1 Tablet (30 mg) by mouth daily antique repairer. 30 Tablet 9 Active metoprolol tartrate (LOPRESSOR) [...] Overview (08/18/2012): secondary to fasciotomy Atherosclerosis of [place] ronary artery of [place] heart with stable angina pectoris 08/18/2012 DM (diabetes mellitus), type 2, uncontrolled 05/2012 Hypothyroidism 08/18/2012 Benign hypertension CKD (chronic kidney disease) stage 2, GFR 60-89 ml/min Resolved Problems Problem Noted Date Diagnosed Date Resolved Date Acute chest pain 09/06/2018 10/27/2018 Elevated troponin 09/06/2018 10/27/2018 Grade I diastolic dysfunction 07/06/2018 10/27/2018 Chest pain 04/04/2018 07/06/2018 CAD in [place] artery 07/02/2013 019 CHF (congestive heart failure) [...] history exists Medical Devices Implanted Type Area Benefits Consultant Device Identifier Shelf Expiration Date Model / Serial / Lot Port-06/04/2018 Implanted:2018 (Quantity not on file) Port Procedures Procedure Name Priority Date/Time Associated Diagnosis Comments LIPID PANEL Routine 01/25/2019 2:00 AM CDT HEMOGLOBIN A1C Routine 05/03/2014 9:04 AM HOME DECORATOR DM (diabetes mellitus), type 2, uncontrolled HTN (hypertension), benign from Last 3 Months or Most Recently Relevant to Health Maintenance Results * (ABNORMAL) LIPID PANEL (01/25/2019 2:00 AM CDT) CHOLESTEROL 133 <200 mg/dL 01/25/2019 2:42 AM CDT [facility] TRIGLYCERIDE 177(H) <150 mg/dL 01/25/2019 2:42 AM CDT [facility] HDL 33(L) 40 - 59 mg/dL 01/25/2019 2:42 AM CDT [facility] LDL CALCULATED 65 <100 mg/dL 01/25/2019 2:42 AM CDT [facility] NON-HDL CHOLESTEROL 100 <130 mg/dL 01/25/2019 2:42 AM CDT [facility] Blood Venipuncture / Unknown 01/25/2019 2:00 AM CDT 01/25/2019 2:15 AM CDT Narrative [facility] - 01/25/2019 2:42 AM CDT TOTAL [...] John Teixeira MD CHEMISTRY ORDERABLES Final Result [facility] CLIA# [id number] [address] [place] [address] * (ABNORMAL) HEMOGLOBIN A1C (05/03/2014 9:04 AM HOME DECORATOR) HEMOGLOBIN A1C 9.0(H) 4.0 - 6.0 % [facility] Comment: This test was performed on a [employer] VARIANT II instrument using HPLC methodology. Blood specimen (specimen) 05/03/2014 9:04 AM HOME DECORATOR 05/03/2014 9:05 AM HOME DECORATOR us Nicolasa Acosta TRAFFIC SIGNAL REPAIRER CHEMISTRY ORDERABLES Final R esult INTERFACE SYSTEM Refer to clinic/hospital department [facility] CLIA# [id number] [address] [place] [address] from Last 3 Months or Most Recently Relevant to Health Maintenance Insurance [place] [place] [address] DUAL COMPLETE [facility] PPO D-SNP RX [employer] PLANS (INTERNAL) [facility] Internal Plans RX [employer] RX Member Subscriber Plan / Payer (Ef fective for All Dates) Name:Rei Queen II Relation to Subscriber:Self Name:Rei Queen II Payer ID:Not on file Group ID:[id number] Type:RX Medicare Part D Address: [address] Advance Directives For more information, please contact: [phone] * Full Code (Latest Code Status on [...] 9:34 PM 04/10/2018 3:22 PM Care Teams Plaster Lather Relationship Specialty Start Date End Date Kp Montanez DO [address] [address] PCP - General Internal Medicine 04/04/18
--- OUTSIDE RECORDS SUMMARY | 2024-12-18 02:46 | XMS_ITS | Encounter Summary ---
Author Organization [facility] Address [address] [place] [address] Care Team Providers Care Enterprise Systems Engineer Name Role Phone Dez Evans MD Primary Care Provider [phone] Reason for Visit * Reason Onset Date Comments Question 12/04/2024 Encounter Details Date Type Department Care Team (Late st Contact Info) Description 12/04/2024 Telephone [facility] [place] [address] [facility] [address] [place] [address] Shannan Goodwin MD [address] [facility] [address] [place] [address] Question Social History Tobacco Use Types Packs/Day Years Used Date Smoking Tobacco: Never Smokeless Tobacco: Never Alcohol Use Standard Drinks/Week Comments Not Currently 0 (1 standard drink = 0.6 oz pur e alcohol) rarely drinks since 2013 Sex and Gender Information Value Date Recorded Sex Assigned at Not on file Legal Sex Male 2:43 AM WHIP SAWYER Gender Identity Not on file Sexual Orientation Not on file Occupation Industry Job Start Date Job End Date Not on file Not on file Not on file Not on file documented as of this encounter Miscellaneous Notes * Telephone Encounter - Susanne Price - 12/17/2024 11:20 AM CDT PT calling again : asking if has rec'd msg sent from [email or web address]. Please call [phone] * Telephone Encounter - Genesis Guzman RN - 12/11/2024 3:19 PM CDT Could not LVM * Telephone Encounter - Winston Nguyen - 12/04/2024 3:25 PM CDT Christa (Provider) MESSAGE Pt is asking if Dr has rec'd msg sent from [email or web address]. documented in this encounter Plan of Treatment Upcoming Encounters Date Type Department Care Team (Late st Contact Info) Description 02/12/2025 3:30 PM CDT Office Visit [facility] [place] [address] [place] [address] Shannan Goodwin MD [address] [place] [address] documented as of this encounter Visit Diagnoses Not on filedocumented in this encounter Additional Health Concerns Assessment Noted Time PHQ-9 Depression Total Score: 1 06/29/19 2:57 AM WHIP SAWYER documented as of this encounter Care Teams Enterprise Systems Engineer Relationship Specialty Start Date End Date Dez Evans MD [address] [place] [id number] PCP - General Family Practice 06/18/24 documented as of this encounter
--- OUTSIDE RECORDS SUMMARY | 2024-12-18 02:46 | XMS_ITS ---
Author Name [facility], [facility] Address [address] [place] [address] Phone [phone] Organization [facility] e, NA DOCUMENT DISCLAIMER Multiple document versions may exist, please be sure you review the latest version. The information in the [facility] Continuity of Care Document represents a summary of certain health and medical information. It may not contain the complete medical history for the patient and should be independently verified. The represented time in the document is Eastern Time. 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 June 29, 2024 Chest pain, unspecified R07.9 Active [facility]2024 Atherosclerotic heart diseas e of [place] coronary artery without angina pectoris I25.10 Active [...] 2022 Chest pain, unspecified R07.9 Active Alistair haile2022 Fever, unspecified R50.9 Active May 202022 Pain, [...] diastolic (congestive) heart failure I50.42 Active Joselito simran 2022 Type 2 diabetes mellitus wit h diabetic neuropathy, unspecified E11.40 Active June 01, 2022 Ischemic cardiomyopathy I25.5 Active Alistair haile2022 Old myocardial infarction I25.2 Active Luigi baez 2022 [facility]iary (current) use of anticoagulants Z79.01 Active June 01, 2022 Long-term (current) use of i njectable non-insulin antidiabetic drugs Z79.85 Active June 01, 2022 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.82 Active June 01, 2022 Hypothyroidism, unspecified E03.9 Active June 01, 2022 penitentiary (current) use of insulin Z79.4 Active June 01, 2022 Hyperlipidemia, unspecified E78.5 Active June 01, 2022 Atherosclerotic heart diseas e of [place] coronary artery without angina pectoris I25.10 Active [...] Instructions Dosage Route Start Date End Date Status atorvastatin 40 mg Take by mouth every morning 1 tablet ORAL June 22, 2023 Active Aashish Chewable Aspirin 81 mg Take by mouth once a day 1 tablet ORAL May 07, 2023 Active bupropion HCl 300 mg Take by mouth every morning 1 tablet ORAL June 22, 2023 Active buspirone 10 mg Take by mouth twice a day 1 tablet ORAL November 28, 2023 Active carvedilol 6.25 mg Take by mouth twice a day 1 tablet ORAL December 15, 2024 Active colchicine 0.6 mg Take by [...] 1 capsule ORAL November 12, 2023 Active hydrocodone-aceta minophen 5-325 mg Take by mouth every six hours as needed for pain 1 tablet ORAL August 13, 2024 Active hydroxyzine HCl 50 mg Take by mouth every night at bedtime as needed 2 tablet ORAL May 07, 2024 Active insulin lispro 100 unit/mL Inject subcutaneously twice a day 1 unit SUBCUTANEOUS November 28, 2023 Active isosorbide mononitrate 30 mg Take by mouth once a day as needed 1 tablet ORAL December 13, 2024 Active levothyroxine 88 mcg Take by mouth every morning 1 tablet ORAL June 06, 2022 Active Mounjaro 12.5 mg/0.5 mL Inject subcutaneously once a week 12.5 mg SUBCUTANEOUS November 28, 2023 Active nifedipine 30 mg Take by mouth once a day 1 tablet ORAL December 15, 2024 Active nitroglycerin 0[address] under tongue [...] 52 unit SUBCUTANEOUS November 12, 2023 Active bumetanide 2 mg Take by mouth twice a day 1 tablet ORAL December 15, 2024 Discontinued carvedilol 12.5 mg Take by mouth twice a day 1 tablet ORAL December 15, 2024 Discontinued isosorbide mononitrate 60 mg Take by mouth once a day 1 tablet ORAL May 22, 2023 December 15, 2024 Discontinued VITAL SIGNS Post-Treatment Vital Signs Vital Sign Value Date / Time Blood Pressure-sitting 151/102 mmHg December 17, 2024 08:01 AM Blood Pressure-standing 149/62 mmHg December 17, 2024 08:01 AM Heart Rate 97 beats per minute December 17 08:01 AM Respiratory Rate 12 breaths per minute December 17, 2024 08:01 AM Temperature 98.6 deg. F December 17, 2024 08 :01 AM Weight Vital Sign Value Date / Time Estimated Dry Weight 88.5 kg December 17 11:59 PM Pre-Dialysis 84.40 kg December 17, 2024 08 :01 AM Post-Dialysis 84.00 kg December 17, 2024 08 :01 AM Other Other Value Date / Time [...] 1000/mcL 130 - 400 1000/mcL - Apri 2024 Neutrophils 68.0 % 40.0 - 75.0 % - August 20, 2024 WBC (No Diff) 6.68 1000/mcL 4.80 - 10.80 1000/mcL - August 20, 2024 Hemoglobin x 3 29.4 % 42.0 [...] 16.1 % 11.5 - 14.5 % High May 13, 202 5 Platelets 254 1000/mcL 130 - 400 1000/mcL - September 29, 2024 Hemoglobin x 3 31.5 % 42.0 - 54.0 % Low October 01, 2024 Hemoglobin x 3 30.3 % 42.0 - 54.0 % Low October 08, 2024 Hemoglobin x 3 33.6 % 42.0 - 54.0 % Low October 15, 2024 Ferritin 171 ng/mL 22 - 322 ng/mL - October 22, Iron 43 mcg/dL 45 - 160 mcg/dL Low October 22, 2024 UIBC/TIBC 163 mcg/dL 155 - 355 mcg/dL - October 22, 2024 TIBC (Calc) 206 mcg/dL 185 - 515 mcg/dL - October Transferrin Sat. (Calc) 21 % 20 - 55 % - October 22, 2024 Lymphocytes 30.5 % 19.0 - 48.0 % - October 22 Neutrophils 57.5 % 40.0 - 75.0 % - October 22 Monocytes 6.0 % 3.0 - 10.0 % [...] pg 27.0 - 31.0 pg High October 22 RDW 15.3 % 11.5 - 14.5 % High October 22 MCHC 34.2 g/dL 30.0 - 36.0 g/dL - October 22, 2024 Platelets 225 1000/mcL 130 - 400 1000/mcL - October 22, 2024 Hemoglobin x 3 36 % 42.0 - 54.0 % Low October Hemoglobin x 3 33.6 % 42.0 - 54.0 % Low October MCH 32.6 pg 27.0 - 31.0 pg High November 19 Platelets 200 1000/mcL 130 - 400 1000/mcL [...] 42.0 - 52.0 % Low November 19 25 MICHAEL 1.8 % 0.0 - 4.0 % [...] 40.0 - 75.0 % High November 19 025 Eosinophil 1.6 % 0.0 - 7.0 % [...] - 18.0 g/dL Low December 03, 2024 HGB 12.0 g/dL 14.0 - 18.0 g/dL Low December 10, 2024 Hemoglobin x 3 36 % 42.0 - 54.0 % Low November Metabolic/Renal Result Type Result Value Relevant Reference Range Interpre tation Date Hemoglobin A1c 6.7 % 4.8 - 5.9 % High July 22, 2024 BUN, Post 12 mg/dL 6 - 19 mg/dL - September 29, 2024 Bicarbonate 27 mEq/L 22 - 29 mEq/L - September 29 25 Potassium 4.0 mEq/L 3.5 - 5.1 mEq/L - September 29, 2 025 Chloride 103 mEq/L 96 - 108 mEq/L - September 29 Sodium 141 mEq/L 136 - 145 mEq/L - September 29, 2 025 URR, Calc 73 % 65 - [...] 21 mEq/L 22 - 29 mEq/L Low Vicky 03, 2 025 BUN 43 mg/dL 6 - [...] 2024 Liver/Nutrition Result Type Result Value Relevant Referen ce Range Interpretation Date LDH 142 U/L 118 - 273 [...] 118 - 273 U/L - October 22 25 Total Protein 5.7 g/dL 6.0 - 8.5 [...] g/dL 3.5 - 5.2 g/dL - November Glucose, Point of Care Test 155 No Reference Range Provided - December 15, 2024 Cardiovascular Result Type Result Value Relevant Reference Range Interpre tation Creatine Kinase 47 U/L 30 - 223 U/L - October Lipid Result Type Result Value Relevant Referen ce Range Interpretation Date Cholesterol, Total 273 mg/dL 0 - 199 mg/dL [facility] 2024 Triglycerides 247 mg/dL 0 - 149 mg/dL High July VLDL (Calculated) 49 mg/dL 10 - 30 mg/dL [facility] 2024 HDL 34 mg/dL No Reference Ran ge Provided - July 22, 2024 Cholesterol HDL Ratio 8.0 0.0 - 4.5 [facility] 2024 LDL, (Calculated) 190 mg/dL 0 - [...] Hemodialysis Data Element Value Order Date/Time December 17, 2024 Frequency 3X Week Treatment Days TueThuSat Dialyzer 180NRe Optiflux Treatment Time (Total Minutes) 225 min Blood Flow Rate (mL/min) 450 mL/min Dialysate Flow Rate Autoflow 2.0 Estimated Dry Weight 88.5 kg Dialysate Concentrate 3.0 K, 2.5 Ca, [...] Dialysate Dialyzer Dialysis Access Meds Admin December 10, 2024 Weight 88.60 kg Weight 88.60 kg - 460 3.0 K, 2.5 Ca, 1.0 Mg, 100 Dextrose (N3251) 180nre Optifl ux Blood Pressure-sitting 112/54 mmHg Blood Pressure-sit ting 138/55 mmHg Heart Rate 92 beats per minute Heart Rate 84 beats per minute Respiratory Rate 18 breaths per minute Respiratory Rate 16 breaths per minute Temperature 97.9 deg. F Temperature 97.4 deg. F December 15, 2024 Weight 86.50 kg Weight 85.60 kg 03:47:00 390 3.0 K, 2.5 Ca, 1.0 Mg, 100 Dextrose (N3251) 180nre Optiflux Hemodialysis-AV Graft-Biological - Bovine, Left Upper Arm, Brachial Artery to Cephalic Vein Access Placed on September 28, 2022 Heparin Sodium (Porcine) 1,000 Units/mL Systemic; 4000units,Intravenous - push Blood Pressure-sitting 174/94 mmHg Blood Pressure-sit ting 140/73 mmHg Blood Pressure-standing 148/97 mmHg Blood Pressure-st anding 118/64 mmHg Heart Rate 117 beats per minute Heart Rate 94 beats per minute Respiratory Rate 18 breaths per minute Respiratory Rate 18 breaths per minute Temperature 97.7 deg. F Temperature 96.4 deg. F December 17, 2024 Weight 84.40 kg Weight 84.00 kg 03:11:00 310 3.0 K, 2.5 Ca, 1.0 Mg, 100 Dextrose (N3251) 180nre Optiflux Hemodialysis-AV Graft-Biological - Bovine, Left Upper Arm, Brachial Artery to Cephalic Vein Access Placed on September 28, 2022 Heparin Sodium (Porcine) 1,000 Units/mL Systemic; 4000units,Intravenous - push Blood Pressure-sitting 130/71 mmHg Blood Pressure-sit ting 151/102 mmHg Heart Rate 90 beats per minute Blood Pressure-standi ng 149/62 mmHg Respiratory Rate 18 breaths per minute Heart Rate 97 beats per minute Temperature 98.6 deg. F Respiratory Rate 12 breaths per minute - - Temperature 98.6 deg. F
--- OUTSIDE RECORDS SUMMARY | 2024-12-18 02:46 | XMS_ITS ---
Author Organization Unknown Medications Date Medication Dosage DosageUnit StartDate StopDate StopReason Active DoseQuantity DoseUnit Dispense DispenseUnit Refills NdcCode DrugCode PharmacyId IsPrescription MappedMedication Srcstatus Custom 2024 12:00 :00 AM minocycline 100 mg capsule 21.0000 00 08/24/2024 12:00:00 AM 1 21.713368 1 [id number] 69 550 [id number] [facility] P ACTIVE 2023 12:00 :00 AM gavilyte-g 236 gram-22.74 gram-6.74 gram-5.86 gram oral solution 4000.00 0000 02/19/2024 12:00:00 AM 07/24/2024 12:00:00 AM 0 4000.[id number] [facility] P HISTORICAL 2024 12:00 :00 AM hydrocodone 5 mg-acetamin ophen 325 mg tablet 28.0000 00 1 28.390365 0 [id number] P ACTIVE 2024 12:00 :00 AM tizanidine 2 mg tablet 60.0000 00 1 60.892919 3 [id number] P ACTIVE 2024 12:00 :00 AM trazodone 100 mg tablet 90.0000 00 10/27/2024 12:00:00 AM 1 90.235012 6 [id number] 08 001 [id number] [facility] P ACTIVE 04/28 12:00 :00 AM metoprolol tartrate 25 mg tablet 90.0000 00 1 90.475169 3 [id number] P ACTIVE 2023 12:00 :00 AM levofloxaci n 250 mg tablet 13.0000 00 01/28/2024 12:00:00 AM 12:00:00 AM 0 13.314075 0 [id number] 150 [id number] [facility] P HISTORICAL 2024 12:00 :00 AM hydroxyzine hcl 50 mg tablet 60.0000 00 10/27/2024 12:00:00 AM 1 60.386384 6 509057 06 201 [id number] [facility] P ACTIVE 2024 12:00 :00 AM tizanidine 2 mg tablet 60.0000 00 12/02/2024 12:00:00 AM 1 60.777461 1 [id number] 17 101 [id number] [facility] P ACTIVE 04/08 12:00 :00 AM colchicine 0.6 mg tablet 30.0000 00 04/05/2024 12:00:00 AM 07/24/2024 12:00:00 AM 0 30.037126 0 [id number] 801 [id number] [facility] P HISTORICAL 2024 12:00 :00 AM mounjaro 15 mg/0.5 ml subcutaneou s pen injector 2.42493 0 11/18/2024 12:00:00 AM 1 2.520531 2 0980275 5 423 [id number] [facility] P ACTIVE 2024 12:00 :00 AM techlite pen needle 31 gauge x 10/02 1.17716 0 1 1.339409 3 [id number] P ACTIVE 03/30 12:00 :00 AM pantoprazol e 40 mg tablet,sindy yed release 30.0000 00 03/26/2024 12:00:00 AM 1 30.357965 0 797000 68 910 [id number] [facility] P ACTIVE 03/30 12:00 :00 AM tamsulosin 0.4 mg capsule 30.0000 00 03/26/2024 12:00:00 AM 1 30.097815 4 582589 07 601 [id number] [facility] P ACTIVE 025 12:00 :00 AM clindamycin hcl 300 mg capsule 9.51128 0 07/24/2024 12:00:00 AM 09/17/2024 12:00:00 AM 0 9.042952 0 [id number] 201 [id number] [facility] P HISTORICAL 025 12:00 :00 AM gabapentin 100 mg capsule 180.000 000 1 180.67226 0 3 [id number] P ACTIVE 2024 12:00 :00 AM eliquis 2.5 mg tablet 180.000 000 07/14/2024 12:00:00 AM 1 180.96563 0 3 [id number] 987 [id number] [facility] P ACTIVE 2024 12:00 :00 AM isosorbide mononitrate er 60 mg tablet,exte nded release 24 hr 30.0000 00 06/22/2024 12:00:00 AM 1 30.823627 1 774285 10 501 [id number] [facility] P ACTIVE 2024 12:00 :00 AM bumetanide 2 mg tablet 60.0000 00 10/27/2024 12:00:00 AM 1 60.684644 1 054550 13 001 [id number] [facility] P ACTIVE 2024 12:00 :00 AM ranolazine er 1,000 mg tablet,exte nded release,12 hr 60.0000 00 11/24/2024 12:00:00 AM 1 60.218115 3 024621 12 602 [id number] [facility] P ACTIVE 2024 12:00 :00 AM allergy relief (fexofenadi ne) 180 mg tablet 30.0000 00 10/27/2024 12:00:00 AM 1 30.322167 1 162547 70 202 [id number] [facility] P ACTIVE 2024 12:00 :00 AM dexcom g7 sensor device 3.50411 0 11/17/2024 12:00:00 AM 1 3.899313 0 [id number] 7 701 [facility] P ACTIVE 2024 12:00 :00 AM renaplex-d 800 mcg-12.5 mg-2,000 unit tablet 90.0000 00 09/19/2024 12:00:00 AM 1 90.258833 2 112963 61 601 [facility] P ACTIVE 2024 12:00 :00 AM prednisone 50 mg tablet 4.41723 0 10/31/2024 12:00:00 AM 1 4.141882 0 2064305 1 925 [id number] [facility] P ACTIVE 2024 12:00 :00 AM carvedilol 6.25 mg tablet 60.0000 00 07/13/2024 12:00:00 AM 10/21/2024 12:00:00 AM 0 60.192827 5 21625802 501 [id number] [facility] P HISTORICAL 2024 12:00 :00 AM clopidogrel 75 mg tablet 30.0000 00 12/09/2024 12:00:00 AM 1 30.207698 0 661791 31 405 [id number] [facility] P ACTIVE 2024 12:00 :00 AM campbell allergy 180 mg tablet 90.0000 00 1 90.340968 1 [id number] P ACTIVE 2024 12:00 :00 AM techlite pen needle 31 gauge x 516 100.000 000 09/18/2024 12:00:00 AM 1 100.70675 0 0 [id number] 131 [facility] P ACTIVE 2023 12:00 :00 AM sevelamer carbonate 800 mg tablet 270.000 000 01/27/2024 12:00:00 AM 1 270.66786 0 2 21500341 401 [id number] [facility] P ACTIVE 2024 12:00 :00 AM tresiba flextouch u-200 insulin 200 unit/ml (3 ml) subcutaneou s pen 9.97065 0 10/27/2024 12:00:00 AM 1 9.910924 0 5443587 5 927 [id number] [facility] P ACTIVE 2024 12:00 :00 AM bd ultra-fine short pen needle 31 gauge x 5/16 100.000 000 06/19/2024 12:00:00 AM 1 100.08263 0 3 [id number] 109 [facility] P ACTIVE 2024 12:00 :00 AM naloxone 4 mg/actuatio n nasal spray 2.65235 0 06/22/2024 12:00:00 AM 1 2.945717 3 1397019 7 237 [id number] [facility] P ACTIVE 2024 12:00 :00 AM levothyroxi ne 88 mcg tablet 90.0000 00 11/09/2024 12:00:00 AM 1 90.402297 1 876810 80 710 [id number] [facility] P ACTIVE 025 12:00 :00 AM carvedilol 12.5 mg tablet 1 7527543 9 501 [id number] M ACTIVE 2024 12:00 :00 AM fluoxetine 40 mg capsule 30.0000 00 10/27/2024 12:00:00 AM 1 30.800046 6 843100 19 801 [id number] [facility] P ACTIVE 2023 12:00 :00 AM atorvastati n 40 mg tablet 90.0000 00 1 90.406868 0 [id number] P ACTIVE 03/16 12:00 :00 AM isosorbide mononitrate er 30 mg tablet,exte nded release 24 hr 60.0000 00 0 60.679515 0 [id number] P HISTORI JAGRUTI 2023 12:00 :00 AM methylpredn isolone 4 mg tablets in a dose pack 21.0000 00 01/28/2024 12:00:00 AM 12:00:00 AM 0 21.364909 0 [id number] 315 [facility] P HISTORICAL 2023 12:00 :00 AM tamsulosin 0.4 mg capsule 30.0000 00 1 30.746098 5 [id number] P ACTIVE 2024 12:00 :00 AM kenalog 40 mg/ml suspension for injection 1 722401 P ACT TIM 04/28 12:00 :00 AM nitroglycer in 0.4 mg sublingual tablet 25.0000 00 04/22/2024 12:00:00 AM 1 25.960116 [id number] [facility] P ACTIVE 03/30 12:00 :00 AM isosorbide mononitrate er 30 mg tablet,exte nded release 24 hr 60.0000 00 03/16/2024 12:00:00 AM 07/24/2024 12:00:00 AM 0 60.494966 0 [id number] 401 [id number] [facility] P HISTORICAL 024 12:00 :00 AM paxlovid 300 mg (150 mg x 2)-100 mg tablets in a dose pack 1 0 094639 P ACTIVE 04/28 12:00 :00 AM bupropion hcl xl 300 mg 24 hr tablet, extended release 30.0000 00 04/20/2024 12:00:00 AM 1 30.904416 [address]3040 [id number] [facility] P ACTIVE 025 12:00 :00 AM gabapentin 300 mg capsule 180.000 000 1 180.49250 0 3 [id number] P ACTIVE 025 12:00 :00 AM techlite pen needle 31 gauge x 08/02 100.000 000 10/15/2024 12:00:00 AM 1 100.29891 0 3 [id number] 131 [facility] P ACTIVE 2024 12:00 :00 AM bd ultra-fine short pen needle 31 gauge x 10/02 1.04250 0 1 1.180307 3 [id number] P ACTIVE 2024 12:00 :00 AM levothyroxi ne 88 mcg tablet 1.31662 0 1 1.546335 1 304756 P ACTIVE 2024 12:00 :00 AM gabapentin 300 mg capsule 180.000 000 10/21/2024 12:00:00 AM 1 180.21912 0 3 91124038 501 [id number] [facility] P ACTIVE 2024 12:00 :00 AM losartan 25 mg tablet 1 0037 8404 177 [id number] ACTIVE 025 12:00 :00 AM entresto 24 mg-26 mg tablet 1 2179811 5 784 [id number] M ACTIVE 2024 12:00 :00 AM eliquis 2.5 mg tablet 180.000 000 1 180.85948 0 3 [id number] P ACTIVE 2024 12:00 :00 AM hydrocodone 5 mg-acetamin ophen 325 mg tablet 120.000 000 11/18/2024 12:00:00 AM 1 120.10598 0 0 57912734 301 [id number] [facility] P ACTIVE 2023 12:00 :00 AM atorvastati n 40 mg tablet 90.0000 00 02/04/2024 12:00:00 AM 1 90.004884 0 748400 05 810 398907 [facility] P ACTIVE 2024 12:00 :00 AM mupirocin 2 % topical ointment 22.0000 00 11/09/2024 12:00:00 AM 1 22.034616 2 150695 01 042 [id number] [facility] P ACTIVE 04/08 12:00 :00 AM prednisone 20 mg tablet 30.0000 00 04/05/2024 12:00:00 AM 09/17/2024 12:00:00 AM 0 30.361786 0 16071196 825 [id number] [facility] P HISTORICAL 2024 12:00 :00 AM promethazin e 25 mg tablet 60.0000 00 10/28/2024 12:00:00 AM 1 60.283121 5 213986 30 701 [id number] [facility] P ACTIVE 03/01 12:00 :00 AM nifedipine er 30 mg tablet,exte nded release 24 hr 90.0000 00 02/25/2024 12:00:00 AM 12:00:00 AM 0 90.860421 3 01701522 869 [id number] [facility] P HISTORICAL 2024 12:00 :00 AM pentips pen needle 31 gauge x 10/02 100.000 000 07/13/2024 12:00:00 AM 1 100.56440 0 2 [id number] 042 [facility] P ACTIVE 2024 12:00 :00 AM oxycodone-a cetaminophe n 5 mg-325 mg tablet 1 0 [id number] P ACT TIM 04/28 12:00 :00 AM buspirone 10 mg tablet 60.0000 00 04/20/2024 12:00:00 AM 1 60.374214 [id number] [facility] P ACTIVE 03/30 12:00 :00 AM humalog kwikpen (u-100) insulin 100 unit/ml subcutaneou s 15.0000 00 03/16/2024 12:00:00 AM 1 15.771932 5 575703 79 601 [id number] [facility] P ACTIVE 2024 12:00 :00 AM banophen 25 mg tablet 2.64354 0 10/31/2024 12:00:00 AM 1 2.882289 0 5228688 5 [id number] [facility] P ACTIVE 2024 12:00 :00 AM promethazin e 25 mg tablet 60.0000 00 1 60.626174 5 [id number] P ACTIVE
--- OUTSIDE RECORDS SUMMARY | 2024-12-18 02:46 | XMS_ITS | Encounter Summary ---
Author Organization [facility] Address [address] [place] [address] Phone Care Team Providers Care Compliance Associate Name Role Phone Kp Montanez DO Primary Care Provider Unavaila ble Reason for Visit * Reason Comments Med Refill Encounter Details Date Type Department Care Team (Late st Contact Info) Description 11/17/2021 Refill [facility] [address] [place] [address] Antolin Weiss MD [address] [place] [address] Social History Tobacco Use Types [...] on filedocumented in this encounter Care Teams Compliance Associate Relationship Specialty Start Date End Date Kp Montanez DO PCP - General Internal Medicine 01/07/23 documented as of this encounter
--- OUTSIDE RECORDS SUMMARY | 2024-12-18 02:46 | XMS_ITS | Patient Health Record ---
Author Organization [facility] Address [address] [place] [address] Care Team Providers Care Dry Cleaning Checker Name Role Phone Cristina RITTER, Dez Primary Care Provider UnavailElizabeth Jon Unavailable [phone] Pee Castaneda MD Unavailable Unavailable Ray Sherman Unavailable [phone] Shelley Llanes Unavailable [phone] Migration, Provider Unavailable Unavailable Ajit Silver Unavailable [phone] Allergies Allergen (clinical drug ingredient) Drug/Non Drug [...] Component Value Reference Range Flag Notes Urine Drug Screen (cup read) - 40860 Reviewed date:11/05/2024 02:20:09 PM Interpretation: Performing Lab: Notes/Report: BUP + OPI + OXY + Urine Confirmation Panel (in strument) - [id number] Reviewed date:11/10/2024 02:00:57 PM Interpretation: Performing Lab: [...] the U.S. Food and Drug Administration. Gabapentin >82268 <225 ng/mL > This test was developed [...] Administration. Urine Confirmation Panel (in strument) - [id number] Reviewed date:09/01/2024 08:59:18 AM Interpretation: Performing Lab: [...] date:07/21/2024 11:36:15 AM Interpretation: Performing Lab: Notes/Report: Reason For Referral Reason Rectal Bleed COLON Referring Provider First Name Pee Referring Provider Last Name Lorenzaylnora Referring Provider Speciality Family Med icine Referred Organization [facility] Referred Provider Ray Sherman Referred Address [address] [facility] [place],[address] Referred Provider Specialty Gastroentero logy General Notes Taisha Godoy 09/22 04:14:39 PM >nonprofit fundraiser Referral Priority Routine Reason chronic back pain gr eater than three months duration Diagnosis 1 Other chronic pain ( G89.29) Referring Provider First Name Kp Referring Provider Last Name Lisseth Referring Provider Speciality Internal M edicine Referred Organization [facility] Referred Provider Eran Block Referred Address [address] [facility],[address],[place] Referred Provider Specialty Pain Medicin e General [...] W/U Status Risk Notes Problem Chronic pain (55497739) Other chronic pain (G89.29) Active confirmed Problem Chronic pain syndrome (375076310) Chronic pain syndrome (G89.4) Active confirmed Problem Cervical radiculopathy (73527937) Cervical radiculopathy (M54.12) Active confirmed Problem Lumbar radiculopathy (994027840) Lumbar radiculopathy (M54.16) Active confirmed Problem Long-term current use of drug therapy (317549481) Long-term use of high-risk medication (Z79.899) Active confirmed Problem Abnormal gait (94884255) Abnormality of gait and mobility (R26.9) Active confirmed Problem Atherosclerotic heart disease of [place] coronary artery without angina pectoris (492970141074436 ) Atherosclerotic heart disease of [place] coronary artery without angina pectoris (I25.10) Active confirmed [id number] ed Description:Patricia nary arteriosclerosis Problem Presence of coronary angioplasty implant and graft (Z95.5) Active confirmed [id number] om ed Description:Hist ory of placement of stent for coronary artery disease Problem Essential hypertension (03854300) Essential primary hypertension (I10) Active confirmed [id number]-Fam ed Description:Holger gn essential hypertension Vital Signs Heart Rate 82 /min 02/19/2024 Temperature 97.5 degrees Fahrenheit 02/19/2024 Respiratory Rate 18 /min 02/19/2024 Height-cm 165.1 cm 11/05/2024 Oximetry 93 % 02/19/2024 Weight-kg 90.72 kg 11/05/2024 Height 65 in 11/05/2024 Weight 200 lbs 11/05/2024 BMI 33.28 kg/m2 11/05/2024 Encounters Encounter Location Date Provider Diagnosis [facility] [address] [address] 11/05/2024 Elizabeth Parker Chronic pain syndrom e G89.4 ; Cervical radiculopathy M54.12 ; Lumbar radiculopathy M54.16 ; Atherosclerotic heart disease of [place] coronary artery without angina pectoris I25.10 and Long-term use of high-risk medication Z79.899 [facility] [address] [address] 09/02/2024 Ajit Silver Chronic pain syndrom e G89.4 ; Lumbar radiculopathy M54.16 ; Atherosclerotic heart disease of [place] coronary artery without angina pectoris I25.10 and Long-term use of high-risk medication Z79.899 [facility] Interventional Pain [address] [address] 06/24/2024 Ajit Silver Chronic pain syndrom e G89.4 ; Lumbar radiculopathy M54.16 ; Atherosclerotic heart disease of [place] coronary artery without angina pectoris I25.10 ; Abnormality of gait and mobility R26.9 and Long-term use of high-risk medication Z79.899 [facility] [address] [place] [address] 02/19/2024 Shelley Llanes Rectal bleeding K62. 5 [facility] Interventional Pain [address] [address] 07/15/2024 Ajit Silver Chronic pain syndrom e G89.4 ; Lumbar radiculopathy M54.16 ; Atherosclerotic heart disease of [place] coronary artery without angina pectoris I25.10 and Long-term use of high-risk medication Z79.899 [facility] Gastroenterology [facility] [address] [place] [address] 03/09/2024 [facility] [address] [place] [address] 02/25/2024 [facility] [address] [place] [address] 02/24/2024 [facility] [address] [place] [address] 02/19/2024 [facility] [address] [place] [address] 01/16/2024 Shelley Llanes Migrated_Facility 0 0 03/15/2024 Provider Migration Migrated[facility]Facility 0 0 03/14/2024 Provider Migration [facility] Inter[facility] Management [address] [address] 11/05/2024 Ajit Silver Lumbar radiculopathy M54.16 Assessments [...] effects are noted. Last UDS and [place] BATTERY RECHARGER reviewed today. Patient is advised that best [...] infarction and pneumonia and was in the [facility] for a bit of time. He [...] effects are noted. Last UDS and [place] BATTERY RECHARGER reviewed today. Patient is advised that best [...] - M54.16) 07/15/2024 Atherosclerotic heart disease of [place] coronary artery without angina pectoris (ICD-10 - I25.10) [id number]-Bdfbks Description:[place]amon ry arteriosclerosis 06/24/2024 Atherosclerotic heart disease of [place] coronary artery without angina pectoris (ICD-10 - I25.10) [id number]-Artcyp Description:[place] arteriosclerosis 07/15/2024 Long-term use of [...] testing policy. 09/02/2024 Atherosclerotic heart disease of [place] coronary artery without angina pectoris (ICD-10 - I25.10) [id number]-Mbylqx Description:[place] arteriosclerosis 11/05/2024 Atherosclerotic heart disease of [place] coronary artery without angina pectoris (ICD-10 - I25.10) Hel-3643826-Mcqkui Description:[place] arteriosclerosis 06/24/2024 Abnormality of gait [...] Pending Test Test Name Order Date Diagnostic Colonoscopy-[id number] 02/19/2024 Next Appt Details Provider Name:Elizabeth verduzco, 01/07/2025 02:20:00 PM, [address] [place], [address], Insurance Providers Payer Name Payer Address Payer Phone Subscriber Number Group Number Insured Name Patient Relationship to Insured Coverage Start Date Coverage End Date [facility] Medicare Advantage - PPO [address] [address] [place] [address] [id number] Bret SMITHA Self - patient is the insured UHC Medicare Dual Complete PPO [address] [address] [place] [address] [id number] SMITHA Downey Self - patient is the insured [place] Medicaid [address] [place] [address] [id number] SMITHA Downey Self - patient is the [...]
--- OUTSIDE RECORDS SUMMARY | 2024-12-18 02:47 | XMS_ITS | Encounter Summary ---
Author Organization [facility] Address [address] [place] [address] Care Team Providers Care Forest Engineer Name Role Phone eDz Evans MD Primary Care Provider [phone] Reason for Visit * Reason Onset Date Comments Appointment Notification 09/24/2024 Encounter Details Date Type Department Care Team (Late st Contact Info) Description 09/24/2024 Telephone [facility] [address] [place] [address] Marla Rodriges FNP [address] [facility] [address] [place] [address] Appointment Notification Social History Tobacco Use Types Packs/Day Years Used Date Smoking Tobacco: Never Smokeless Tobacco: Never Alcohol Use Standard Drinks/Week Comments Not Currently 0 (1 standard drink = 0.6 oz pur e alcohol) rarely drinks since 2013 Sex and Gender Information Value Date Recorded Sex Assigned at Not on file Legal Sex Male 2:43 AM COMMISSIONS SPECIALIST Gender Identity Not on file Sexual Orientation Not on file Occupation Industry Job Start Date Job End Date Not on file Not on file Not on file Not on file documented as of this encounter Miscellaneous Notes * Telephone Encounter - Carmen Sargent - 09/24/2024 10:35 AM CDT Provider: Antelmo MESSAGE Pt has an appt on 09/29/24 w / MOLD SHEET CLEANER Antelmo and he is needing to get this appt rescheduled, he has dialysis on that day, Saturday, Saturday or Saturday works the best, please advise. Carmen Sargent, [facility] Card[facility], Advanced PSR documented in this encounter Plan of Treatment Upcoming Encounters Date Type Department Care Team (Late st Contact Info) Description 02/12/2025 3:30 PM CDT Office Visit [facility] Vascular Surgery [place] [address] [place] [address] Shannan Goodwin MD [address] [place] [address] documented as of this encounter Visit Diagnoses Not on filedocumented in this encounter Additional Health Concerns Assessment Noted Time PHQ-9 Depression Total Score: 1 06/29/19 2:57 AM COMMISSIONS SPECIALIST documented as of this encounter Care Teams Forest Engineer Relationship Specialty Start Date End Date Dez Evans MD [address] [place] [address] PCP - General Family Practice 06/18/24 documented as of this encounter
--- OUTSIDE RECORDS SUMMARY | 2024-12-18 02:47 | XMS_ITS | Encounter Summary ---
Author Organization [facility] Address [address] [place] [address] Phone Care Team Providers Care Endoscopy Nurse Name Role Phone Kp Montanez DO Primary Care Provider Unavaila ble Reason for Visit * Reason Comments Med Refill Encounter Details Date Type Department Care Team (Late st Contact Info) Description 05/08/2021 Refill [facility] [address] [address] [place] [address] Ghazal Schmitt NP [address] [place] [address] Social History Tobacco Use Types [...] on filedocumented in this encounter Care Teams Endoscopy Nurse Relationship Specialty Start Date End Date Kp Montanez DO PCP - General Internal Medicine 01/07/23 documented as of this encounter
--- OUTSIDE RECORDS SUMMARY | 2024-12-18 02:47 | XMS_ITS | Encounter Summary ---
Author Organization [facility] Address [address] [place] [address] Phone Care Team Providers Care Fuel Cell Builder Name Role Phone Kp Montanez DO Primary Care Provider Unavaila ble Encounter Details Date Type Department Care Team (Late st Contact Info) Description 12/10/2024 Orders Only [facility] [address] [place] [address] Yesi Madison MD [address] [place] [address] Social History Tobacco Use Types [...] 12/11/2024 Unless otherwise specified, test(s) performed at: [facility], [address] [place] [address] REGIONAL ADMINISTRATIVE ASSISTANT: Jose Martin Mariscal M.D. For any questions, please call customer service at FREQUENCY:OTHER Resulting Agency Comment Specimen source: Blood us Yesi Madison MD LAB BLOOD ORDERABLES Final Re sult [facility] [employer] See order comments or contact performing lab Unknown, [place] documented in this encounter Visit Diagnoses Not on filedocumented in this encounter Care Teams Fuel Cell Builder Relationship Specialty Start Date End Date Kp Montanez DO PCP - General Internal Medicine 01/07/23 documented as of this encounter
--- OUTSIDE RECORDS SUMMARY | 2024-12-18 02:47 | XMS_ITS | Clinical Summary ---
Author Organization [facility] Facility Address [address] [address] Care Team Providers Care Accounting Manager Cpa Name Role Phone Kp Montanez DO Primary Care Provider Unavaila ble Allergies Active Allergy Reactions Criticality Noted Date [...] taking.Reported on 06/25/2024 bumetanide (BUMEX) 2 MG tabletIndications:Educational Diagnostician jose combined systolic and diastolic heart failure [...] Overview (04/26/2020): Seen on [facility] abd at [facility] 10/2018 Coronary arteriosclerosis 05/24/2019 Noncompliance with medication regimen 10/27/2018 Essential hypertension 09/06/2018 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 ilure 09/06/2018 Normocytic anemia 09/06/2018 Chronic kidney disease stage 4 06/26/2018 Overview (2020): Update for Diagnosis Load 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 06/26/2018 Combined hyperlipidemia 01/15/2013 Acquired hypothyroidism 08/18/2012 Encounters Date Type Department Care Team Description 12/10/2024 Orders Only [facility] [address] [place] [address] Yesi Madison MD 12/03/2024 Orders Only [facility] [address] [place] [address] Yesi Madison MD 12/01/2024 [facility], [facility] [address] [place] [address] Zoey Johnson NP End stage renal disease; Dependence on renal dialysis 11/27/2024 Orders Only [facility] [address] [place] [address] Yesi Madison MD 11/24/2024 Telephone [facility] [address] [place] [address] Yesi Madison MD 11/24/2024 Treatment [facility] [address] [place] [address] Ghazal Schmitt NP End stage renal disease; Dependence on renal dialysis 11/19/2024 Orders Only [facility] [address] [place] [address] Yesi Madison MD 11/17/2024 Treatment [facility] [address] [place] [address] Ghazal Schmitt NP End stage renal disease; Dependence on renal dialysis 11/10/[address] [place] [address], [facility] [address] [place] [address] Zoey Johnson NP End stage renal disease; Dependence on renal dialysis 11/05/2024 Orders Only [facility], [facility] [address] [place] [address] Yesi Madison MD 11/05/[address] [place] [address], [facility] [address] [place] [address] Yesi Madison MD End stage renal disease; Dependence on renal dialysis 10/22/2024 Orders Only [facility], [facility] [address] [place] [address] Yesi Madison MD 10/20/[address] [place] [address], [facility] [address] [place] [address] Zoey Johnson NP End stage renal disease; Dependence on renal dialysis 10/20/2024 Telephone [facility], [facility] [address] [place] [address] Yesi Madison MD 10/15/[address] [facility], [facility] [address] [place] [address] Yesi Madison MD 10/15/[address] [place] [address], [facility] [address] [place] [address] Yesi Madison MD End stage renal disease; Dependence on renal dialysis 10/08/[address] [facility], [facility] [address] [place] [address] Yesi Madison MD 10/06/[address] [place] [address] [facility], [facility] [address] [place] [address] Ghazal Schmitt NP End stage renal disease; Dependence on renal dialysis 10/05/2024 Telephone [facility], [facility] [address] [place] [address] Yesi Madison MD 10/01/2024 Orders Only [facility], [facility] [address] [place] [address] Yesi Madison MD 09/29/[address] [facility], [facility] [address] [place] [address] Yesi Madison MD 09/29/2024 [facility] D[facility] Clinic [address] [place] [address], [facility] [address] [place] [address] Zoey Johnson NP 09/29/[address] [place] [address] [facility] [address] [place] [address] Zoey Johnson NP End stage renal disease; Dependence on renal dialysis 09/26/2024 Orders Only [facility], [facility] [address] [place] [address] Yesi Madison MD 09/17/[address] [facility], [facility] [address] [place] [address] Yesi Madison MD from Last [...] included. Hemoglobin 12.0(L) 14.0 - 18.0 g/dL [facility] Hemoglobin x 3 36(L) 42.0 - 54.0 % [facility] 12/10/2024 12/11/2024 9:2 5 AM CDT Narrative [facility] - 12/11/2024 Unless otherwise specified, test(s) performed at: [facility], [address] [place] [address] ARTISTS' BOOKING REPRESENTATIVE: Jose Martin Mariscal M.D. For any questions, please call customer service at FREQUENCY:OTHER Resulting Agency Comment Specimen source: Blood us Yesi Madison MD LAB BLOOD ORDERABLES Final Re sult Performing Organization Address [facility] de Phone Number [facility] See order comments or contact performing lab [facility], [place] * [facility] Chemistry (11/27/2024) Only the most recent of5 resultswithin the time period is included. Potassium 4.1 3.5 - 5.1 mEq/L [facility] 11/27/2024 11/28/2024 10: 57 AM CDT Narrative [facility] - 11/28/2024 Unless otherwise specified, test(s) performed at: [facility], [address] [place] [address] ARTISTS' BOOKING REPRESENTATIVE: Jose Martin Mariscal M.D. For any questions, please call customer service at FREQUENCY:OTHER Resulting Agency Comment Specimen source: Serum us Yesi Madison MD LAB BLOOD ORDERABLES Final Re sult Performing Organization Address [facility] de Phone Number [facility] See order comments or contact performing lab Unknown, [place] * [facility] (11/19/2024) Only the most recent of3 resultswithin the time period is included. % Urea Reduction 74 65 - 80 % [facility] 11/19/2024 11/21/2024 10: 46 AM CDT Narrative [facility] - 11/21/2024 Unless otherwise specified, test(s) performed at: [facility], [address] [place] [address] ARTISTS' BOOKING REPRESENTATIVE: Jose Martin Mariscal M.D. For any questions, please call customer service at FREQUENCY:MONTHLY Resulting Agency Comment Specimen source: Plasma us Yesi Madison MD LAB BLOOD ORDERABLES Final Re sult Performing Organization Address [facility] de Phone Number [facility] See order comments or contact performing lab Unknown, [place] * POST CHEMISTRY (11/19/2024) Only the most recent of3 resultswithin the time period is included. Pathologist [facility] BUN Post Dialysis 11 6 - 19 mg/dL [facility] 11/19/2024 11/21/2024 10: 46 AM CDT Narrative [facility] - 11/21/2024 Unless otherwise specified, test(s) performed at: [facility], [address] [place] [address] ARTISTS' BOOKING REPRESENTATIVE: Jose Martin Mariscal M.D. For any questions, please call customer service at FREQUENCY:MONTHLY Resulting Agency Comment Specimen source: Plasma us Yesi Madison MD LAB BLOOD ORDERABLES Final Re sult Performing Organization Address [facility] de Phone Number [facility] See order comments or contact performing lab Unknown, [place] * [facility] Results (11/19/2024) Only the most recent of3 resultswithin the time period is included. eKt/V (Tattersall) 1.30 [facility] PCR 55.10 [facility] eKdrt/V 1.29 [facility] spKt/V (Daugirdas II) 1.49 [facility] WSTDKT/V 2.4 [facility] spKt/V Gotch 1.50 [facility] eNPCR 0.72 [facility] nPCR_HD 0.79 [facility] eKt/V Gotch 1.29 [facility] 11/19/2024 11/19/2024 us Valdo Ordering Provider LAB BLOOD ORDERABLES Final Result [facility] Center Contact Performing lab Unknown, [place] * (ABNORMAL) THYROIDS (10/22/2024) TSH 4.142(H) 0.300 - 3.000 mIU/L [facility] Comment: The reference range of 0.300-3.000 mIU/L is recommended by the [place] [employer] Clinical Endocrinologists (AACE). An ESRD population contains about 20% of individuals with TSH of up to 20 mIU/L and normal free T4 consistent with non-thyroidal illness. ESRD patients with true hypothyroidism develop persistent values above 20 mIU/L. 10/22/2024 10/23/2024 1:1 0 PM CDT Narrative [facility] - 10/23/2024 Unless otherwise specified, test(s) performed at: [facility], [address] [place] [address] ARTISTS' BOOKING REPRESENTATIVE: Jose Martin Mariscal M.D. For any questions, please call customer service at FREQUENCY:MONTHLY Resulting Agency Comment Specimen source: Serum us Yesi Madison MD LAB BLOOD ORDERABLES Final Re sult [facility] See order comments or contact performing lab Unknown, [place] * SPECIAL CHEMISTRY (10/22/2024) Only the most recent of2 resultswithin the time period is included. Creatine Kinase (CK/CPK) 47 30 - 223 U/L [facility] 10/22/2024 10/23/2024 1:1 0 PM CDT Narrative Resulting Agency Comment Specimen source: Serum us Yesi Madison MD LAB BLOOD BANK TEST ORDERABLE S Final Result [facility] See order comments or contact performing lab Unknown, [place] from Last 3 Months Insurance [facility] [place] [id number] Care Teams Accounting Manager Cpa Relationship Specialty Start Date End Date Kp Montanez DO PCP - General Internal Medicine 01/07/23
--- OUTSIDE RECORDS SUMMARY | 2024-12-18 02:47 | XMS_ITS | Encounter Summary ---
Author Organization [facility] [employer], [facility] Address [address] [place] [address] Phone Care Team Providers Care Skein Winding Operator Name Role Phone Kp Montanez DO Primary Care Provider Unavaila ble Encounter Details Date Type Department Care Team (Late st Contact Info) Description 12/24/2018 Orders Only [facility] [employer], [facility] [address] [place] [address] Antolin Weiss MD [address] [place] [address] Chronic kidney disease stage 3; [...] Mckeon MA - 12/17/2018 2:15 PM CDT [facility] [address] [place] [phone] us Antolin Weiss MD LAB BLOOD ORDERABLES Fi nal Result * PTH, intact (CKD3a) (12/17/2018 1:55 PM CDT) Parathyroid Hormone, Intact 119.3 pg/mL Blood specimen (specimen) 12/17/2018 1:55 PM CDT Leslie Mckeon MA - 12/17/2018 2:15 PM CDT [facility] [address] [place] [phone] us Antolin Weiss MD LAB BLOOD ORDERABLES Fi nal Result * (ABNORMAL) Urine albumin / creatinine ratio (12/17/2018 1:55 PM CDT) Urine Microalbumin 28 mg/dL Creatinine, Urine Random 76.2 mg/dL Microalb/Creat Ratio 367(A) 30 - 300 mg/g Creat Urine specimen (specimen) 12/17/2018 1:55 PM CDT Antolin Weiss MD LAB URINE ORDERABLES Fi nal Result * CBC (CKD3a) (12/17/2018 1:55 PM CDT) Pathologist [facility] WBC 8.8 K/uL Red Blood Cell [...] Benson MA - 12/17/2018 2:15 PM CDT [facility] [address] [place] [id number] Antolin Weiss MD LAB BLOOD ORDERABLES Fi nal Result * (ABNORMAL) RFP (CKD3a) (12/17/2018 1:55 PM CDT) Pathologist [facility] Albumin 4.2 3.5 - 5.0 g/dL [...] 12/17/2018 1:55 PM CDT Narrative Leslie Benson CASANDRA - 12/17/2018 2:15 PM CDT [facility] [address] [place] [address] us Antolin Weiss MD LAB BLOOD ORDERABLES Fi nal Result documented in this encounter Visit Diagnoses Diagnosis Chronic kidney disease stage 3 (HCC) Type 2 diabetes mellitus with diabetic chronic kidney disease (HCC) documented in this encounter Care Teams Skein Winding Operator Relationship Specialty Start Date End Date Kp Montanez DO PCP - General Internal Medicine 01/07/23 documented as of this encounter
--- OUTSIDE RECORDS SUMMARY | 2024-12-18 02:47 | XMS_ITS | Encounter Summary ---
Author Organization [facility] [employer], [facility] Address [address] [place] [address] Phone Care Team Providers Care Economic Development Specialist Name Role Phone Kp Montanez DO Primary Care Provider Unavaila ble Encounter Details Date Type Department Care Team (Late st Contact Info) Description 07/14/2024 TCM in Dialysis [facility], [facility] [address] [place] [address] Ayad Monahan NP [address] [place] [address] Social History Tobacco Use Types [...] 07/14/2024 The patient was seen for a [id number] visit as part of Transitional Care Management services. Attending Professional Nurse: RITA MENENDEZ Dialysis Location: [facility] Schedule: Shift: 1 HOSPITALIZATION SUMMARY Patient transitioned from: Hospital Patient transitioned to: Home Admit Date: 06/28/2024 Discharge Date: 07/03/2024 Discharged info reviewed: Followed-up on or reviewed need for pending tests/treatments as noted Reason for admission: CP COMMENTS: Needs CBC and BMP we will [...] 97.8*F Current Dialysis Vitals BP Sit: 140/78 AP/[employer]: -- Pulse: 79 CARE COORDINATION Post-discharge follow-up appointments reviewed with the patient. COMMENTS: following Cardiology EDUCATION Education relevant to the discharge diagnosis provided to the patient or caregiver VISIT DIAGNOSES CPT Code 35255 - High complexity, seen 8-14 days post discharge or moderate complexity, seen iiizes20 days of discharge. R07.9 Chest pain, unspecified N18.6, Z99.2 End stage renal disease;Dependence on renal dialysis Signed by: AYAD MONAHAN NP on 07/14/2024 at 01:27:20 PM Transcribed by: AYAD MONAHAN NP on 07/14/2024 at 01:27:20 PM documented in this encounter Plan of Treatment Not on file documented as of this encounter Visit Diagnoses Not on filedocumented in this encounter Care Teams Economic Development Specialist Relationship Specialty Start Date End Date Kp Montanez DO PCP - General Internal Medicine 01/07/23 documented as of this encounter
--- OUTSIDE RECORDS SUMMARY | 2024-12-18 02:47 | XMS_ITS | Clinical Summary ---
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 9 Active atorvastatin (LIPITOR) 40 mg tablet [...] sugar). 4 Active naloxone (NARCAN) 4 mg/spray [place], Non-Aerosol EMERGENCY USE ONLY: Administer 1 spray (4 mg) in one nostril one time. May repeat in alternating nostrils every 2-3 min until responsive or EMS arrives. 2 Each 3 5 Active sacubitriL-vals tommy (ENTRESTO) 24-26 mg Tablet Take 1 Tablet by mouth daily. 200 Tablet 3 07/03/2024 4:14 PM VICE PRESIDENT DIVERSITY 5 Active carvediloL (COREG) 12.5 mg tablet Take 1 Tablet (12.5 mg) by mouth 2 times daily. 30 Tablet 07/03/2024 4:14 PM VICE PRESIDENT [employer]ERSITY 5 Active isosorbide mononitrate (IMDUR) 60 mg Extended Release 24 hour tablet Take 1 Tablet (60 mg) by mouth daily in the morning. 30 Tablet 07/03/2024 4:14 PM VICE PRESIDENT [employer]ERSITY 5 Active HYDROcodone-fede taminophen (NORCO) 5-325 mg [...] (10/17/2022): Added automatically from request for surgery [id number] Scrotal pain 02/07/2021 Adenoma of both adrenal glands 05/24/2019 Overview (10/17/2022): Seen on CT abd at [facility] 10/[address] abd at [facility] 10/2018 Diverticulosis 05/24/2019 History of pulmonary [...] Overview (11/24/2020): secondary to fasciotomy Atherosclerosis of [place] co ronary artery of [place] heart with stable angina pectoris 08/18/2012 DM [...] Type Department Care Team Description 12/04/2024 Telephone [facility] Vascular Surgery [place] [address] [place] [address] Shannan Goodwin MD Question 11/13/2024 3:30 PM CDT Office Visit [facility] V[facility] Surgery [place] [address] [place] [address] Shannan Goodwin MD ESRD (end stage renal disease) ([facility]) (Primary Dx); AV graft stenosis, subsequent encounter 11/09/2024 Telephone [place] [address] [facility] [address] [place] [address] Stephani Keen MD Severe pain in right arm/shoulder 11/03/2024 11:02 AM CDT - 11/03/2024 11:59 PM CDT Hospital Encounter [facility] Interventional Radiology [address] [address] Yesi Madison MD Birlew, Ryan Avery, MD Discharge Disposition: Home or Self Care 11/02/2024 Telephone [facility] Interventional Radiology [address] [address] Sabra Barr RN Procedure (Instructed patient for scheduled procedure with sedation on 11/03/24. Check at the [place] entrance at 1230. 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 /) 11/02/2024 Telephone [facility] [address] [facility] [address] [place] [address] Stephani Keen MD PT needs to cancel Pacemaker appointment 11/02/2024 Telephone [facility] Vascular Surgery [place] [address] [place] [address] Shannan Goodwin MD Appointment Notification 10/30/2024 12:51 PM CDT - 10/30/2024 11:59 PM CDT Hospital Encounter [facility] Dialysis [address] [address] Discharge Disposition: Home or Self Care 10/30/2024 11:30 AM CDT - 10/30/2024 11:59 PM CDT Hospital Encounter [facility] Interventional Radiology [address] [place] [address] [place] [phone] Yesi Madison MD Birlew, Ryan Avery, MD Discharge Disposition: Home or Self Care 10/28/2024 Telephone [facility] Vascular Surgery [address] [place] [phone] Shannan Goodwin MD Appointment Verification 10/27/2024 [facility] Vascular Surgery [address] [phone] Shannan Goodwin MD Question 10/20/2024 External Device Data STL ABSTRACTION Provider, Abstract 10/19/2024 Telephone [facility] [phone] Shannan Goodwin MD Information 09/28/2024 [facility] Vascular Surgery [address] [phone] Shannan Goodwin MD Needs Appointment 09/24/2024 [place] [address] [facility] [address] [place] [phone] Marla Rodriges FNP Appointment Notification 09/22/2024 External Device Data ST[place] ABSTRACTION Provider, Abstract 09/19/2024 2:43 PM CDT - 09/24/2024 4:56 PM CDT Hospital Encounter [address] Medical [address] [place] [phone] Lucia Hernandez DO Abbas, Muhammad Khalid, MD Bandaru, Kiran Babu, MD Neupane, Gagan, MD AV fistula occlusion Discharge Disposition: Home or Self Care 09/19/2024 10:47 AM CDT - 09/19/2024 1:03 PM CDT Emergency [facility] Emergency Medicine [address] [place] [phone] Joesph Larios MD Vascular graft occlusion, initial encounter (Primary Dx) Discharge Disposition: Home or Self Care 09/19/2024 12:15 AM CDT - 09/19/2024 11:59 PM CDT Hospital Encounter [facility] Emergency Medical Services [place] [address] [place] [address] Ambulance, [facility] Discharge Disposition: [facility] 09/19/2024 Travel from Last 3 Months Immunizations Immunization Administration Dates Next Due (ADACEL/BOOSTRIX)(10 YR UP) TDAP VACCINE, 0.5ML, IM 05/30/2021 (HEPLISAV-B)(18 YR UP) HEPAT ITIS B VACCINE CPG-ADJUVANTED (HEPB-CPG) 2-4 DOSE, IM 10/30/2022,08/25/2022,07/21/2022,06/23 (PNEUMOVAX 23)(50 YRS UP) PN EUMOCOCCAL POLYSACCHARIDE (PPV23) 0.5 ML, IM 09/18/2022,05/25/2019 (PREVNAR 20)(6 WKS UP) PNEUM OCOCCAL CONJUGATE VACCINE 20-VALENT (PCV20), POLYSACCHARIDE [id number] CONJUGATE, ADJUVANT 0.5 ML (PF) IM 06/26/2022 [...] on file Legal Sex Male 2:43 AM VICE PRESIDENT DIVERSITY Gender Identity Not on file Sexual Orientation [...] Description 02/12/2025 3:30 PM CDT Office Visit [facility] Vascular Surgery [place] [address] [place] [address] Shannan Goodwin MD [address] [place] [address] Health Maintenance Due Date Last [...] 08/10/2020, 06/06/2020 Medical Devices Implanted Type Area Change Management Analyst Device Identifier Shelf Expiration Date Model / Serial / Lot Clip Ligating Horizon Red [id number] - [facility] - [id number] Implanted:Qty : 1 on 09/28/2022 by Guero Felder MD at [facility] Clip Left: Arm [employer]LE[employer] INC [id number] 12/25/2026 [id number] / / [id number] Clip Ligating Horizon Med Ti [id number] - [facility] - [id number] Implanted:Qty : 1 on 09/28/2022 by Guero Felder MD at [facility] Clip Left: Arm TELEFLEX- WECK CLOSURE SYS [id number] 10/08/2026 [id number] / / [id number] Clip Ligating Horizon Red 862645 - Csc - [id number] Implanted:Qty : 1 on 11/14/2022 by Jimmy Anaya MD at [facility] Clip Left: Arm TELE[employer] INC [id number] 12/25/2026 [id number] / / [id number] Clip Ligating Horizon Med Ti 852196 - Csc - [id number] Implanted:Qty : 1 on 11/14/2022 by Jimmy Anaya MD at [facility] Clip Left: Arm TELEFLEX- WECK CLOSURE SYS [id number] 02/12/2027 [id number] / / [id number] Closure Perclose Prostyle Sut Mediate 86428-12 - [id number] Implanted:Qty : 1 on 05/03/2023 by Jay Bales MD at [facility] Closure Device Right: Groin SALAS- VASC DEVICE 01/17/2025 01572-0 3 / / [id number] Dev Closure Angioseal 6fr Vip 728483 - [id number] Implanted:Qty : 1 on 05/03/2023 by Jay Bales MD at [facility] Closure Device Right: Groin [facility] 10/11/2023 [id number] / / [id number] Dev Closure Angioseal 6fr Vip 938004 - [id number] Implanted:Qty : 1 on 06/19/2024 by Prince Barfield MD at [facility] Closure Device Right: Groin TERUMO- CARDIOVASC SYS 01/13/2025 [id number] / / [id number] Dev Icd Acticor 7 Vr-T Dx Df4 Hybrid 326619 - [id number] Implanted:Qty : 1 on 07/23/2024 by Stephani Keen MD at [facility] Defibrillator Right: Chest Wall [employer] [id number] 05/19/2026 [id number] / [id number] / Graft Vasc Propaten 4-1bhv31jk [id number] - [id number] Implanted:Qty : 1 on 09/28/2022 by Guero Felder MD at [facility] Graft Left: Arm [employer] [id number] 04/02/2026 [id number] / [id number] 2026-03 Hemostatic Surgicel 1x2in 1960 - [id number] Implanted:Qty : 1 on 09/28/2022 by Guero Felder MD at [facility] Hemostatic Left: Arm J&J- ETHIC[employer] INC [id number] 02/16/20251960 / / [id number] Hemostatic Surgicel 1x2in 1960 - [id number] Implanted:Qty : 1 on 09/28/2022 by Guero Felder MD at [facility] Hemostatic Left: Arm J&J- ETHIC[employer] INC [id number] 12/17/20241960 / / [id number] Lead Endocardial Pamira S Dx 65/15 Rv W Atr Sensing [id number] - [id number] Implanted:Qty : 1 on 07/23/2024 by Stephani Keen MD at [facility] Lead Right: Chest Wall BIOT[employer] INC [id number] 05/19/2026 405902 / [id number] / Power Port Implanted:(Qu antity not on file) Explanted:(Qu antity not on file) Port Port- 9 Implanted: (Quantity not on file) Port Suture Perchik 2 Button Pouch [id number] - [id number] Implanted:Qty : 1 on 08/23/[address] [facility] Screw [employer] [id number] / / Description:This is Not an I mplant Stent Implanted:(Qu antity not on file) Explanted:(Qu antity not on file) Stent Stent Synergy Xd 3.5x16mm Evrlms Elut [id number] - [id number] Implanted:Qty : 1 on 05/03/2023 by Jay Bales MD at [facility] Stent Left: Coronary [employer] PATRICK 01/01/2025 [id number] / / [id number] Stent Viabahn Hep 8mmx7.5xcm [id number] - [id number] Implanted:Qty : 1 on 10/23/2023 by Jimmy Anaya MD at [facility] Stent Left: Arm [employer] [id number] 12/23/2025 [id number] / [id number] / Procedures Procedure Name Priority Date/Time Associated Diagnosis Comments IR FISTULOGRAM Routine 11/03/2024 1:16 PM CDT ESRD (end stage renal disease) ([facility]) TELEMETRY REPORT 09/25/2024 2:39 AM [...] CDT HEMOGLOBIN A1C Routine 06/27/2024 5:39 AM VICE PRESIDENT DIVERSITY LIPID PANEL Routine 05/02/2023 9:36 PM VICE PRESIDENT DIVERSITY from Last 3 Months or Most Recently [...] flows.. DIAGNOSIS: ESRD (end stage renal disease) ([facility]). Medications: Fentanyl and versed were titrated to effect. Moderate (conscious) sedation for this procedure was performed with continuous physician supervision. Medical history, physical exam, drug dosages, routes of drug administration, monitoring data, and precise times of service are documented in the medical record on the [facility]-approved form, 'Sedative/Analgesic Administration for Diagnostic and Therapeutic [...] transitional dilator was exchanged for a 6 Guamanian vascular sheath. Angioplasty of recurrent moderate stenosis [...] was obtained and exchanged for a 6 [place]ian sheath. A Glidewire was advanced retrograde into [...] flows.. DIAGNOSIS: ESRD (end stage renal disease) ([facility]). Medications: Fentanyl and versed were titrated to effect. Moderate (conscious) sedation for this procedure was performed with continuous physician supervision. Medical history, physical exam, drug dosages, routes of drug administration, monitoring data, and precise times of service are documented in the medical record on the [facility]-approved form, 'Sedative/Analgesic Administration for Diagnostic and Therapeutic [...] transitional dilator was exchanged for a 6 [place]ian vascular sheath. Angioplasty of recurrent moderate stenosis [...] was obtained and exchanged for a 6 [place] sheath. A Glidewire was advanced retrograde into [...] anastomosis was treated with 6 mm angioplasty. Yesi Madison MD IR ORDERABLES Final Result * TELEMETRY REPORT (09/25/2024 2:39 AM CDT) Only the most recent of2 resultswithin the time period is included. us Provider Scanning ECG ORDERABLES Final Result * (ABNORMAL) POC GLUCOSE (09/24/2024 12:46 PM CDT) Only the most recent of15 resultswithin the time period is included. GLUCOSE POC 170(H) 74 - 99 mg/dL 09/24/2024 12:46 PM CDT [facility] SPECIMEN SOURCE, GLUCOSE POC Capillary 09/24/2024 12:46 PM CDT [facility] Blood, whole 09/24/2024 12:4 6 PM CDT 09/24/2024 1:21 PM CDT Cas Barreto MD POINT OF CARE TESTING Final Res ult [facility] CLIA # [id number] [address] [place] [address] * HEMODIALYSIS (09/24/2024 7:53 AM CDT) Narrative Yesi Madison MD - 09/24/2024 7:53 AM CDT Yesi Madison MD 09/24/2024 8:22 AM [facility] - Procedure Note Primary Microelectronics Engineer: Dr. Yesi Madison PROCEDURE: Intermittent Hemodialysis INDICATION: [...] ultrafiltration with rinse back. Yesi Madison MD [facility] 09/24/24, 7:54 AM us Pamela Vann Welda DO DIALYSIS ORDERABLES Edited Resu lt - Final * (ABNORMAL) CBC WITH DIFFERENTIAL (09/24/2024 1:23 AM CDT) Only the most recent of5 resultswithin the time period is included. WBC 7.3 4.8 - 10.8 K/uL 09/24/2024 1:37 AM [facility] RBC 3.24(L) 4.60 - 6.20 M/uL 09/24/2024 1:37 AM [facility] HEMOGLOBIN 10.3(L) 14.0 - 18.0 g/dL 09/24/2024 1:37 AM [facility] HEMATOCRIT 30.2(L) 41.0 - 53.0 % 09/24/2024 1:37 AM [facility] MCV 93.2 84.0 - 103.0 fL 09/24/2024 1:37 AM [facility] MCH 31.8 27.0 - 34.0 pg 09/24/2024 1:37 AM [facility] MCHC 34.1 30.0 - 35.0 g/dL 09/24/2024 1:37 AM [facility] PLATELETS 207 140 - 440 K/uL 09/24/2024 1:37 AM [facility] MPV 9.3 8.9 - 12.8 fL 09/24/2024 1:37 AM [facility] RDW 15.5(H) 11.0 - 14.5 % 09/24/2024 1:37 AM [facility] RDW-STDEV 51.8 37.0 - 54.0 fL 09/24/2024 1:37 AM [facility] NEUTROPHILS 60 42 - 75 % 09/24/2024 1:37 AM [facility] LYMPHOCYTES 27 24 - 44 % 09/24/2024 1:37 AM [facility] MONOCYTES 9 2 - 10 % 09/24/2024 1:37 AM [facility] EOSINOPHILS 3 0 - 7 % 09/24/2024 1:37 AM [facility] BASOPHILS 1 0 - 1 % 09/24/2024 1:37 AM [facility] IMMATURE GRANULOCYTES 0 0 - 2 % 09/24/2024 1:37 AM [facility] NEUTROPHIL ABSOLUTE 4.37 2.00 - 8.00 K/uL 09/24/2024 1:37 AM [facility] LYMPHOCYTE ABSOLUTE 1.98 1.20 - 4.00 K/uL 09/24/2024 1:37 AM [facility] MONOCYTE ABSOLUTE 0.65(H) 0.10 - 0.60 K/uL 09/24/2024 1:37 AM [facility] EOSINOPHIL ABSOLUTE 0.22 0.00 - 0.70 K/uL 09/24/2024 1:37 AM [facility] BASOPHILS ABSOLUTE 0.04 0.00 - 0.20 K/uL 09/24/2024 1:37 AM [facility] IMMATURE GRANULOCYTES ABSOLUTE 0.03 0.00 - 0.10 K/uL 09/24/2024 1:37 AM [facility] SMEAR REVIEWED: NA - Not Applicable 09/24/2024 1:37 AM [facility] Blood Venipuncture / Unknown 09/24/2024 1:23 AM CDT 09/24/2024 1:31 AM CDT Cas Barreto MD HEMATOLOGY ORDERABLES Final Res ult [facility] CLIA # [id number] [address] [address] [place] [address] * (ABNORMAL) BASIC METABOLIC PANEL (09/24/2024 1:23 AM CDT) Only the most recent of5 resultswithin the time period is included. SODIUM 134(L) 136 - 145 mmol/L 09/24/2024 2:06 AM [facility] POTASSIUM 3.9 3.5 - 5.1 mmol/L 09/24/2024 2:06 AM [facility] Comment:Moderate hemolysis p resent. Can cause significant falsely elevated result. Redraw if indicated. CHLORIDE 96(L) 98 - 107 mmol/L 09/24/2024 2:06 AM [facility] CO2 26 22 - 29 mmol/L 09/24/2024 2:06 AM [facility] CALCIUM 8.5(L) 8.6 - 10.0 mg/dL 09/24/2024 2:06 AM [facility] BUN 35(H) 6 - 20 mg/dL 09/24/2024 2:06 AM [facility] CREATININE 4.10(H) 0.67 - 1.17 mg/dL 09/24/2024 2:06 AM [facility] GLUCOSE 133(H) 74 - 99 mg/dL 09/24/2024 2:06 AM [facility] GFR 16(L) >=60 mL/min/1. 73 sq meter 09/24/2024 2:06 AM [facility] Comment:eGFR calculated with 2020 CKD-EPI equation. Vegetarian diet, extremely high or low muscle mass, and may affect results. Cystatin C with Glomerular Filtration Rate is a suitable alternative for these patients. ANION GAP 12 9 - 20 mmol/L 09/24/2024 2:06 AM [facility] Blood Venipuncture / Unknown 09/24/2024 1:23 AM CDT 09/24/2024 1:31 AM CDT Cas Barreto MD CHEMISTRY ORDERABLES Final Resu lt Performing Organization Address [facility] Co de Phone Number [facility] CLIA # [id number] [address] [address] * (ABNORMAL) TROPONIN (09/23/2024 3:22 PM CDT) TROPONIN T, 5TH GEN 42(H) <=15 ng/L 09/23/2024 4:17 PM CDT [facility] Blood Venipuncture / Unknown 09/23/2024 3:22 PM CDT 09/23/2024 3:46 PM CDT Narrative [facility] - 09/23/2024 4:17 PM CDT Troponin elevated. 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1970 Requested By: Order Number: [id number] Becky MD: Erasmo Reese Measurements Intervals [place] Rate: 79 P: 42 [place]: 182 QRS: 23 QRSD: 112 T: 121 QT: 394 QTc: 451 Interpretive Statements Normal sinus rhythm Anterior infarct, age undetermined Abnormal ECG Electronically Signed On 09-23-2024 20:04:59 CDT by Erasmo Reese Procedure Note Erasmo Reese MD - 09/23/[address] [address] Test Date: 2024-09-23 Pat Name: SMITHA QUEEN Department: 12 Room: [address] 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 Yesi Madison PROCEDURE: Intermittent Hemodialysis INDICATION: [...] HD days while inpatient. Zoey Johnson NP [facility] 09/22/24, 12:36 PM Pamela Sevilla DO DIALYSIS ORDERABLES Final Resul t * HEMODIALYSIS (09/21/2024 4:14 PM CDT) Narrative Zita Gilbert MD - 09/21/2024 4:14 PM CDT Zita Gilbert MD 09/21/2024 7:36 PM [facility] - Procedure Note Primary Microelectronics Engineer: Dr. Yesi Madison PROCEDURE: Intermittent Hemodialysis INDICATION: [...] HD days while inpatient. Zoey Johnson NP [facility] 09/21/24, 4:15 PM Windy Chirinos DISTRICT MEDICAL EXAMINER DIALYSIS ORDERABLES Final R esult * US DUPLEX ARTERIAL ARM LEFT (09/19/2024 3:26 PM CDT) Anatomical Region Laterality Modality Upper Extremity Ultrasound 09/19/2024 3:04 PM CDT Narrative 09/19/2024 4:[address] [facility] Cardiovascular Services Noninvasive Vascular Laboratory [facility] [place] [address] Noninvasive Vascular Lab Upper Extremity Hemodialysis Access Follow-up Evaluation Patient: Smitha Queen Junior Study ID: US DUPLEX ARTERI Gender: M : 1970 Age: 54 Room: 15 Height: 165.1cm Weight: 93.8kg BSA: 2.11m^2 Pt status: Outpatient Study Date: 09/19/2024 Study Time: 03:04:00 PM BSA: 2.11m^2 Ordering: Lucia Hernandez Interpreting:Erasmo Berg Cost Estimator: Coby Chau RVT Indications: Concern for thrombosed [...] the supine position. Image quality was good. [facility] Vascular Lab is accredited with the Intersocietal Commission for the Accreditation of Vascular Laboratories (ICAVL) Prepared and Electronically Authenticated Erasmo Berg 09/19/2024 16:28 Procedure Note Erasmo Berg MD - 09/19/2024 [facility] Cardiovascular Services Noninvasive Vascular Laboratory [address] [place] [address] Noninvasive Vascular Lab Upper Extremity Hemodialysis Access Follow-up Evaluation Patient: Smitha Queen Junior Study ID: US DUPLEX ARTERI Gender: M : 1970 Age: 54 Room: 15 Height: 165.1cm Weight: 93.8kg BSA: 2.11m^2 Pt status: Outpatient Study Date: 09/19/2024 Study Time: 03:04:00 PM BSA: 2.11m^2 Ordering: Lucia Hernandez Interpreting:Erasmo Berg Cost Estimator: Coby Chau RVT Indications: Concern for thrombosed [...] the supine position. Image quality was good. [facility] Vascular Lab is accredited with theIntersociunc medical center Commission for the Accreditation of Vascular Laboratories (ICAVL) Prepared and Electronically Authenticated Erasmo Berg Confirmed 09/19/2024 16:28 us Lucia Hernandez DO ORDERABLES Final Result * (ABNORMAL) PROTIME-INR (09/19/2024 3:11 PM CDT) Only the most recent of2 resultswithin the time period is included. PROTIME 14.8(H) 12.6 - 14.6 Seconds 09/19/2024 3:45 PM CDT [facility] INR 1.1 0.8 - 1.2 09/19/2024 3:45 PM CDT [facility] Blood Venipuncture / Unknown 09/19/2024 3:11 PM CDT 09/19/2024 3:22 PM CDT Narrative [facility] - 09/19/2024 3:45 PM CDT Expected Values for INR: DVT/PE Goal INR 2.5; range 2.0 - 3.0 Valve Replacement Tissue Goal INR 2.5; range 2.0 - 3.0 Valve Replacement Mechanical Goal INR 3.0; range 2.5 - 3.5 POST-SD Goal INR 2.5; range 2.0 - 3.0 or Goal INR 3.0; range 2.5 - 3.5 Atrial Fibrillation Goal INR 2.5; range 2.0 - 3.0 Ischemic Stroke Goal INR 2.5; range 2.0 - 3.0 Lucia Hernandez DO HEMATOLOGY ORDERABLES Final Resu lt Performing Organization Address City/[facility]/ZIP Co de Phone Number [facility] [place] CLIA # [id number] [address] [facility] [place] [address] * TYPE AND SCREEN (09/19/2024 3:11 PM CDT) ABO GROUP O 09/19/2024 4:00 PM CDT [facility] RH (D) TYPE Negative 09/19/2024 4:00 PM CDT [facility] ANTIBODY SCREEN Negative 09/19/2024 4:00 PM CDT [facility] Blood Venipuncture / Unknown 09/19/2024 3:11 PM CDT 09/19/2024 3:22 PM CDT Lucia Hernandez DO BLOOD BANK ORDERABLES Edited Res ult - Final Performing Organization Address [facility] Co de Phone Number [facility] CLIA#[id number] [address] [place] [address], * PTT (09/19/2024 11:29 AM CDT) PTT 30.1 25.8 - 34.0 seconds 09/19/2024 11:57 AM CDT [facility] Blood BLOOD SPECIMEN / Unknown Collection / Unknown 09/19/2024 11:29 AM CDT 09/19/2024 11:38 AM CDT Joesph Larios MD HEMATOLOGY ORDERABLES Final Res ult Performing Organization Address City/[facility]/ZIP Co de Phone Number [facility] CLIA # [id number] [address] [place] [address] * (ABNORMAL) D-DIMER (09/19/2024 11:29 AM CDT) D-DIMER QUANT 1.25(H) <0.50 ug/mL FEU 09/19/2024 12:00 PM CDT [facility] Blood BLOOD SPECIMEN / Unknown Collection / Unknown 09/19/2024 11:29 AM CDT 09/19/2024 11:38 AM CDT Narrative [facility] - 09/19/2024 12:00 PM CDT D-Dimer assay [...] Larios MD HEMATOLOGY ORDERABLES Final Res ult [facility] CLIA # [id number] [address] [place] [id number] * C-REACTIVE PROTEIN (09/19/2024 11:29 AM CDT) CRP 4.7 <5.0 mg/L 09/19/2024 12:00 PM CDT [facility] Blood BLOOD SPECIMEN / Unknown Collection / Unknown 09/19/2024 11:29 AM CDT 09/19/2024 11:38 AM CDT us Joesph Larios MD CHEMISTRY ORDERABLES Final Resu lt [facility] CLIA # [id number] [address] [place] [id number] * (ABNORMAL) BRAIN NATRIURETIC PEPTIDE, BNP OR PROBNP (09/19/2024 11:29 AM CDT) PROBNP, N TERMINAL 1,241(H) 0 - 125 pg/mL 09/19/2024 12:00 PM CDT [facility] Comment: INTERPRETIVE COMMENT based on [...] Larios MD CHEMISTRY ORDERABLES Final Resu lt [facility] CLIA # [id number] [address] [place] [address] 427[address] * MAGNESIUM LEVEL (09/19/2024 11:29 AM CDT) MAGNESIUM 1.9 1.6 - 2.6 mg/dL 09/19/2024 12:00 PM CDT [facility] Blood BLOOD SPECIMEN / Unknown Collection / Unknown 09/19/2024 11:29 AM CDT 09/19/2024 11:38 AM CDT us Joesph Larios MD CHEMISTRY ORDERABLES Final Resu lt [facility] CLIA # [id number] [address] [place] [address] * (ABNORMAL) COMPREHENSIVE METABOLIC PANEL (09/19/2024 11:29 AM T) SODIUM 138 136 - 145 mmol/L 09/19/2024 12:00 PM [facility] POTASSIUM 4.4 3.5 - 5.1 mmol/L 09/19/2024 12:00 PM [facility] CHLORIDE 99 98 - 107 mmol/L 09/19/2024 12:00 PM [facility] CO2 29 22 - 29 mmol/L 09/19/2024 12:00 PM [facility] CALCIUM 8.7 8.6 - 10.0 mg/dL 09/19/2024 12:00 PM [facility] BUN 35(H) 6 - 20 mg/dL 09/19/2024 12:00 PM [facility] CREATININE 3.36(H) 0.67 - 1.17 mg/dL 09/19/2024 12:00 PM [facility] GLUCOSE 141(H) 74 - 99 mg/dL 09/19/2024 12:00 PM [facility] TOTAL PROTEIN 5.7(L) 6.6 - 8.7 g/dL 09/19/2024 12:00 PM [facility] ALBUMIN 3.5(L) 4.0 - 4.9 g/dL 09/19/2024 12:00 PM [facility] BILIRUBIN TOTAL 0.4 0.0 - 1.2 mg/dL 09/19/2024 12:00 PM [facility] ALKALINE PHOSPHATASE 86 40 - 129 U/L 09/19/2024 12:00 PM [facility] AST 14 0 - 50 U/L 09/19/2024 12:00 PM [facility] ALT 9 0 - 50 U/L 09/19/2024 12:00 PM [facility] GFR 21(L) >=60 mL/min/1.7 3 sq meter 09/19/2024 12:00 PM [facility] Comment:eGFR calculated with 2020 CKD-EPI equation. Vegetarian diet, extremely high or low muscle mass, and may affect results. Cystatin C with Glomerular Filtration Rate is a suitable alternative for these patients. ANION GAP 10 5 - 20 mmol/L 09/19/2024 12:00 PM CDT [facility] Blood BLOOD SPECIMEN / Unknown Collection / Unknown 09/19/2024 11:29 AM CDT 09/19/2024 11:38 AM CDT us Joesph Larios MD CHEMISTRY ORDERABLES Final Resu lt [facility] CLIA # [id number] [address] [place] [address] [id number] * (ABNORMAL) HEMOGLOBIN A1C (06/27/2024 5:39 AM [employer]) HEMOGLOBIN A1C 6.6(H) <=5.6 % 06/29/2024 9:10 AM [employer] [facility] [employer] [facility] EST. AVG GLUCOSE, A1C 143 mg/dL 06/29/2024 9:10 AM [facility] Blood Collection / Unknown 06/27/2024 5:39 AM [employer] 06/27/2024 6:05 AM [employer] Narrative [facility] [employer] [facility] - 06/29/2024 9:10 AM [employer] HGB A1C INTERPRETATION NORMAL: <5.7% PRE-DIABETES: 5.7 - 6.4% DIABETES: 6.5% OR GREATER us Joey Vo DO CHEMISTRY ORDERABLES Final R esult [facility] CLIA # [id number] [address] [place] [address] [id number] * (ABNORMAL) LIPID PANEL (05/02/2023 9:36 PM [employer]) CHOLESTEROL 224(H) <200 mg/dL 05/03/2023 10:26 PM [facility] TRIGLYCERIDE 286(H) <150 mg/dL 05/03/2023 10:26 PM [facility] HDL 39(L) 40 - 59 mg/dL 05/03/2023 10:26 PM [facility] LDL CALCULATED 128(H) <100 mg/dL 05/03/2023 10:26 PM [facility] NON-HDL CHOLESTEROL 185(H) <130 mg/dL 05/03/2023 10:26 PM [facility] Blood Venipuncture / Unknown 05/02/2023 9:36 PM [employer] 05/02/2023 9:51 PM [facility] - 05/03/2023 10:26 PM [facility] TOTAL CHOLESTEROL mg/dL Desirable <200 [...] Covarrubias MD CHEMISTRY ORDERABLES Final Resul t [facility] CLIA # [id number] [address] [address] [place], [place] [address] from Last 3 Months or Most Recently Relevant to Health Maintenance Insurance MEDICAID [facility] [id number] * Guarantor: SMITHA QUEEN II Account Type Relation to Patient Date of Phone Billing Address Personal/Family [address] [place] [address] RX [employer] PL[employer] (INTERNAL) [facility] RX [employer] Commercial RX INFOCROSSING Medicaid RX [employer] RX Member Subscriber Plan / Payer (Ef fective for All Dates) Name:Smitha Queen II, Junior Relation to Subscriber:Self Name:Smitha Queen II, Junior Payer ID:Not on file Type:RX Medicare Part D Address: [address] Advance Directives For more information, please contact: [phone] Documents on File Type Date Recorded 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
== END 2024-12-13 13:28 | disposition home or self-care (01) ==
LOC: ER 08:05 → MEDSURG 10:48
PROVIDERS: Admitting Provider Student in an Organized Health Care Education/Training Program; Emergency Provider Family Medicine; PCP Family Medicine; Visit Provider Student in an Organized Health Care Education/Training Program
DX: R68.89 Other general symptoms and signs (principal); F33.2 Major depressive disorder, recurrent severe without psychotic features; F41.1 Generalized anxiety disorder; I25.118 Atherosclerotic heart disease of native coronary artery with other forms of angina pectoris; E03.9 Hypothyroidism, unspecified; E11.22 Type 2 diabetes mellitus with diabetic chronic kidney disease; I12.0 Hypertensive chronic kidney disease with stage 5 chronic kidney disease or end stage renal disease; N18.6 End stage renal disease; Z79.4 Long term (current) use of insulin; Z79.01 Long term (current) use of anticoagulants; Z95.5 Presence of coronary angioplasty implant and graft; Z95.810 Presence of automatic (implantable) cardiac defibrillator; E78.5 Hyperlipidemia, unspecified; K21.9 Gastro-esophageal reflux disease without esophagitis; D64.9 Anemia, unspecified
CPT/HCPCS: 36415; 36416; 36600; 70470; 71045; 80051; 80053; 80061; 80306; 80307; 81001; 82009; 82140; 82330; 82607; 82805; 82962; 83036; 83605; 83735; 84100; 84145; 84443; 84484; 85025; 87040; 87150; 87205; 87637; 90935; 93005; 94664; 96372; 99285; G0378; J1200; J1644; J1815; J2919; J9999

== ENCOUNTER → 2024-12-24 13:37 | Outpatient (BNVA) | payer MEDICARE, SELFPAY ==
[2024-03-20 13:31] VITALS: BP 125/53; BMI 35.0
== END ==
PROVIDERS: PCP Family Medicine; Visit Provider Student in an Organized Health Care Education/Training Program
DX: Z95.828 Presence of other vascular implants and grafts (principal)
CPT/HCPCS: 99204

== ENCOUNTER 2024-12-28 08:56 | Outpatient (CLI) | payer MEDICARE, SELFPAY ==
[2024-03-20 13:31] VITALS: BP 125/53; BMI 35.0
[2024-12-28 10:44] LABS: Estmated Average Glucose 137; Hemoglobin A1C 6.4 % (4.0-6.0)
[2024-12-28 11:50] LABS: Alanine Aminotransferase 13 U/L (0-41); Albumin Level 3.7 g/dL (3.5-5.2); Alkaline Phosphatase 100 U/L (40-130); Anion Gap 17.7 (5-19); Aspartate Amino Transferase 13 U/L (0-40); Blood Urea Nitrogen 55 mg/dL (6-20); Calcium 8.9 mg/dL (8.5-10.5); Carbon Dioxide 25 mmol/L (22-29); Chloride 98 mmol/L (98-107); Cholesterol 280 mg/dL (0-200); Globulin 2.6 g/dL (1.3-4.6); Glucose 261 mg/dL (65-115); HDL Cholesterol 39 mg/dL (60-100); Osmolality Calculated 306 mOsm/kg (285-295); Potassium 4.7 mmol/L (3.5-5.1); Sodium 136 mmol/L (136-145); Total Protein 6.3 g/dL (6.6-8.7); Triglycerides 385 mg/dL (0-150)
[2024-12-28 12:20] LABS: Creatinine Urine, Random 78 mg/dL (39-259)
[2024-12-28 12:21] LABS: Microalbum Creatinine Ratio Ur 244 mg/dL (0-20)
== END 2024-12-28 08:57 | disposition home or self-care (01) ==
LOC: LAB 08:59
PROVIDERS: PCP Family Medicine; Visit Provider Internal Medicine
DX: E11.42 Type 2 diabetes mellitus with diabetic polyneuropathy (principal)
CPT/HCPCS: 36415; 80053; 80061; 82044; 83036

== ENCOUNTER → 2025-01-01 10:56 | Outpatient (BNVA) | payer MEDICARE, SELFPAY ==
[2024-03-20 13:31] VITALS: BP 125/53; BMI 35.0
== END ==
PROVIDERS: PCP Family Medicine; Visit Provider Internal Medicine
DX: E03.9 Hypothyroidism, unspecified (principal); E11.9 Type 2 diabetes mellitus without complications; I10 Essential (primary) hypertension; E78.2 Mixed hyperlipidemia
CPT/HCPCS: 99214

== ENCOUNTER 2025-01-08 09:05 | Day surgery (SDC) | payer MEDICARE, SELFPAY ==
[2024-03-20 13:31] VITALS: BP 125/53; BMI 35.0
[2025-01-08] VITALS (10 sets, daily range): BP systolic 105–147; BP diastolic 48–94; PULSE 65–74; RESP 10–23; TEMP 36.1–36.3; O2SAT 94–99; BMI 34.6
--- NOTE | 2025-01-08 10:04 | ANES.PREANE2 ---
Pre-Anesthetic Assessment Height/Weight: Height 1.65 m Weight 94.347 kg Temp Pulse Resp BP Pulse Ox O2 Del Method 97.4 F L 74 18 145/87 98 Room Air 01/08/25 09:46 01/08/25 09:46 01/08/25 09:46 01/08/25 09:46 01/08/25 09:46 01/08/25 09:46 Operation Date: 01/08/25 11:20 Proposed Procedures p Port a Cath Insertion [id number] Z95.828(Not Applicable) - Noble Laughlin MD Familial anesthetic complications: None Was Beta Sam taken within 24 hours: N/A Was Clonidine taken within 24 hours: N/A Last intake: Intake Last Liquid Date 01/07/25 Last Liquid Time 23:30 Last Solid Date 01/07/25 Last Solid Time 21:00 Social Tobacco and No alcohol Exam alert, oriented x 3, clear to auscultation bilaterally and regular rate & rhythm Airway Mallampati: Class III Dentition: other (none) CV/HEM Coronary Artery Disease and Hypertension Chronic Renal Insufficiency Metabolic Diabetes Mellitus and Thyroid Disease Anesthetic Plan ASA status: 4 Anesthesia: MAC Risk of > 500 ml blood loss (7ml/kg in children): No Medications/Allergies Home Medications ?Medication ?Instructions ?Recorded ?Confirmed ?Last Taken ?Type diphenhydramine HCl 25 mg tablet 50 mg PO DAILY PRN Allergy Symptoms 05/02/23 01/07/25 12/11/24 07:00 History (Benadryl Allergy) insulin lispro 100 unit/mL See Rx Instructions .Route .COMPLEX 05/02/23 01/07/25 01/07/25 History subcutaneous pen (Humalog KwikPen (U-100) Insulin) nitroglycerin 0.4 mg sublingual 0.4 mg sublingual Q5M PRN Chest 08/27/23 01/07/25 12/07/24 Rx tablet (Nitrostat) Pain #25 tabs vit B,C-folic ac 800 mcg-zinc 12.5 1 tab PO BEDTIME 10/29/23 01/07/25 01/07/25 History mg-selen-D3 2,000 unit-vit E tablet (RenaPlex-D) tizanidine 2 mg tablet 2 mg PO BID PRN Muscle Spasm 03/24/24 01/07/25 01/07/25 History fluoxetine 40 mg capsule 40 mg PO QAM #30 caps 04/20/24 01/07/25 01/07/25 Rx promethazine 25 mg tablet 25 mg PO Q6H PRN Nausea 04/21/24 01/07/25 01/05/25 History acetaminophen 500 mg tablet 1,000 mg PO QID PRN Pain 06/04/24 01/07/25 12/05/24 History (Tylenol Extra Strength) metoprolol tartrate 25 mg tablet 12.5 mg PO BID 06/16/24 01/07/25 01/07/25 History apixaban 2.5 mg tablet (Eliquis) 2.5 mg PO BID 12/08/24 01/07/25 12/30/24 History gabapentin 300 mg capsule 300 mg PO BID 12/08/24 01/07/25 01/07/25 History insulin degludec 200 unit/mL (3 40 unit SUBCUT QAM 12/08/24 01/07/25 01/07/25 History mL) subcutaneous pen (Tresiba FlexTouch U-200 insulin) levothyroxine 88 mcg tablet 88 mcg PO QAM 12/08/24 01/07/25 01/08/25 07:00 History ranolazine 1,000 mg 1,000 mg PO BID 12/08/24 01/07/25 01/08/25 07:00 History tablet,extended release,12 hr atorvastatin 40 mg tablet 40 mg PO DAILY 12/13/24 01/07/25 01/07/25 History bupropion HCl 300 mg 24 hr tablet, 300 mg PO QAM 12/13/24 01/07/25 01/07/25 History extended release isosorbide mononitrate 30 mg 30 mg PO DAILY PRN Systolic blood 12/13/24 01/07/25 12/09/24 Rx tablet,extended release 24 hr pressure more than 150 mmHg #10 tabs sevelamer carbonate 800 mg tablet 800 mg PO TIDWM 12/13/24 01/07/25 01/08/25 07:00 History tamsulosin 0.4 mg capsule 0.4 mg PO DAILY 12/13/24 01/07/25 01/07/25 History blood-glucose sensor (Dexcom G7 #9 ea 12/14/24 12/31/24 Unknown Rx Sensor device) semaglutide 2 mg/dose (8 mg/3 mL) 2 mg (0.75 mL) SUBCUT Q7D #9 mL 01/01/25 01/08/25 2 Weeks Ago Rx subcutaneous pen injector (Ozempic) ~12/25/24 enoxaparin 100 mg/mL subcutaneous 90 mg (0.9 mL) SUBCUT DIRECTED 01/05/25 01/07/25 01/07/25 Rx syringe (Lovenox) #2.7 mL hydrocodone 7.5 mg-acetaminophen 1 tab PO Q6H PRN Pain 01/07/25 01/07/25 01/07/25 History 325 mg tablet Allergies Allergy/AdvReac Type Severity Reaction Status Date / Time Iodinated Contrast Media Allergy Severe ALGY-Difficulty Verified 12/24/24 13:43 Breathing iodine Allergy Severe ALGY-Difficulty Verified 12/24/24 13:43 Breathing metoclopramide (From Reglan) Allergy Severe ALGY-Difficulty Verified 12/24/24 13:43 Breathing nalbuphine (From Nubain) Allergy Severe ADR-Diarrhe Verified 12/24/24 13:43 a naproxen (From Naprosyn) Allergy Severe ADR-Vomitin Verified 12/24/24 13:43 g Sulfa (Sulfonamide Allergy Severe ALGY-Difficulty Verified 12/24/24 13:43 Antibiotics) Breathing ketorolac Allergy Intermediate ADR-Nausea Verified 12/24/24 13:43 ondansetron (From Zofran) Allergy Intermediate ADR-Abdominal Verified 12/24/24 13:43 Pain prochlorperazine (From Allergy Intermediate ADR-Irritab Verified 12/24/24 13:43 Compazine) le codeine AdvReac Severe ALGY-Anaphy Verified 12/24/24 13:43 laxis haloperidol (From Haldol) AdvReac Intermediate ADR-Irritab Verified 12/24/24 13:43 le [facility] Anesthesia Medical History Contrast media allergy Thoracic disc disease Non-pressure chronic ulcer of other part of left foot limited to breakdown of skin Bilateral pes planus Hammertoe of left foot Rupture of extensor tendon of foot Kidney failure DM2 (diabetes mellitus, type 2) ICD (implantable cardioverter-defibrillator) in place Atherosclerotic heart disease of [place] coronary artery with other forms of angina pectoris hx of CAD with prior stenting of proximal LAD, LCx, RCA ESRD (end stage renal disease) Hypothyroidism Generalized anxiety disorder Major depressive disorder, recurrent severe without psychotic features Pericarditis Elevated troponin Essential hypertension Psychiatric care 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 mellitus CRF (chronic renal failure) Chronic right SI joint pain Chronic systolic heart failure UTI (urinary tract infection) Peripheral arterial disease PVD (peripheral vascular disease) Worsening angina Angina at rest Uremic encephalopathy D-dimer, elevated Acute on chronic congestive heart failure History of pulmonary embolism Acute kidney injury superimposed on CKD GERD (gastroesophageal reflux disease) Alcohol use disorder, moderate, in sustained remission DVT (deep venous thrombosis) (~03/2020) Proximal left subclavian, basilic and brachial veins, started eliquis this stay, felt present prior to admission Chronic kidney disease -baseline Cr appears to be around 1.5 Ischemic cardiomyopathy Onychodystrophy Chronic anticoagulation Eliquis Osteoarthritis of spine Hyperlipidemia Depression Anemia Foot drop, left H/O acute myocardial infarction Surgical History Peritoneal dialysis catheter in situ (06/15/21) History of appendectomy 1995 History of excision of mass 06/08/2019: Subcutaneous mass on back History of removal of Port-a-Cath Port-A-Cath in place H/O vasectomy Hx of cholecystectomy History of coronary artery stent placement 5x H/O skin graft History of inguinal hernia repair, bilateral 2000 H/O removal of testicle left H/O colonoscopy (11/14/20) 08/2015 H/O esophagogastroduodenoscopy (11/14/20) 08/2015 Family History Grandfather Cancer skin cancer Parkinson disease Brother Hypertension Father Heart disease Mother Hypertension Stroke Aneurysm Grandmother Aneurysm Other Crohn's disease Denies family history of Anesthesia complication Bleeding disorder Social History Smoking and tobacco/nicotine status: never used tobacco/nicotine Second hand smoke exposure: No Alcohol intake: former Year of sobriety/quit date alcohol: 2016 Former alcohol use details: Only holidays - last use 05.19.2015 Substance/Drug Use: never Adopted: No Caregiver/support person: No Lives independently: Yes Household members: spouse Housing: Apartment Marital status: Number of children: 2 Number of grandchildren: 0 Highest education level completed: High School Graduate service: No Current occupational status: disabled Pets and animals: Yes Pets & animals: dog(s) Leisure activites: games and other Leisure activities details: watching TV Sexually active: Yes Do you think of yourself as: Straight/Heterosexual Current gender identity: Male Shannon/Hoahaoism: Episcopal Special shannon needs: No Agree to transfusion: Yes Data Anesthesia Cardiac Studies: Echocardiogram 10/01/23 Echocardiogram Limited Views 04/02/24 Echocardiogram Ultrasound 03/19/20 Sestamibi Stress Test (Cardiology) 12/02/24 Holter Monitor 01/16/24
--- NOTE | 2025-01-08 10:16 | W.PM.OPSUD ---
Surgery/Procedure H&P Update DATE OF PROCEDURE: January 08, 2025 DATE H&P PERFORMED: 12/24/24 H&P UPDATE INFORMATION: I have reviewed H&P completed within last 30 days, I have examined patient prior to procedure, No changes to prior documentation and Risks and benefits of the procedure reviewed PLANNED PROCEDURE: Operation Date: 01/08/25 11:20 Proposed Procedures p Port a Cath Insertion [id number] Z95.828(Not Applicable) - Noble Laughlin MD
[2025-01-08 10:34] LABS: Potassium 5.0 mmol/L (3.5-5.1)
[2025-01-08] MEDS: fentaNYL 50 mcg/mL INJ 2mL IVP (11:15)
[2025-01-08] MEDS: ceFAZolin 2,000 mg SDV 2000 MG IVP (12:01)
--- NOTE | 2025-01-08 12:29 | PC.NURSE ---
called patient's (Chantale) regarding the continuation of surgery due to potential complication. consented to continuation of surgery after being informed of potential complication and alternative routes.
[2025-01-08] MEDS: BUPivacaine 0.25% INJ 10 mL INJECTION (12:30)
[2025-01-08] MEDS: lidocaine-epi 1% 20 mL INJ INJECTION (12:30)
[2025-01-08] MEDS: heparin, porcine 1,000 unit/mL INJ 10 mL 10000 UNIT IRRIGATION (12:30)
--- NOTE | 2025-01-08 13:04 | PM.OP ---
Operative Report Date of procedure: January 08, 2025 Pre-op diagnosis: Nonfunctional Port-A-Cath Post-op diagnosis: same Post-op findings: Old left subclavian port removed. Tip sent for culture. Rest of catheter, cuff, port sent to pathology. New left internal jugular port placed. Tip of catheter confirmed at atriocaval junction with intraoperative fluoroscopy. Port fully functional at end of case. Procedure done: Port-A-Cath replacement (old Port-A-Cath removed and new Port-A-Cath placed) Implants: Port-A-Cath Specimens removed/disposition: Old left subclavian port removed. Tip sent for culture. Rest of catheter, cuff, port sent to pathology. New left internal jugular port placed. Tip of catheter confirmed at atriocaval junction with intraoperative fluoroscopy. Port fully functional at end of case. Pathology: Port, cuff, catheter except tip sent to pathology Surgeon: Noble Laughlin MD Optical Glass Silverer: N/A Anesthesia: MAC Estimated blood loss (mL): 20 Complications: N/A Findings: Old left subclavian port removed. Tip sent for culture. Rest of catheter, cuff, port sent to pathology. New left internal jugular port placed. Tip of catheter confirmed at atriocaval junction with intraoperative fluoroscopy. Port fully functional at end of case. Brief History: 54-year-old male who presented with a nonfunctioning Port-A-Cath. Patient has an ICD in the right chest. Discussed risk and benefits and patient agreed to proceed with Port-A-Cath replacement. Elected to proceed with left sided Port-A-Cath due to ICD on right chest. Procedure: Patient was brought into the operating room and a timeout was carried out. Procedure was done under MAC. Patient was placed supine with the arms tucked and in Trendelenburg. Patient was prepped and draped in the usual sterile fashion. An incision over the old port site was carried out using a knife. Electrocautery was used to dissect around the Port-A-Cath. The Port-A-Cath was pulled and the catheter was scarred down under the clavicle. I then performed a second incision at the site using a knife. Using electrocautery and manage to dissect around the catheter. I wrapped the catheter with a clamp and attempted to pull it. The catheter seem to be scarred down further downstream closer to the vein. At this point I elected to call the family and explained the situation. Family decided to proceed with the case with the understanding that the catheter could break and at that point he will need transfer to in [place] for catheter retrieval. I continued pulling on the catheter and it finally was freed up. I have managed to retrieve the entire length of the catheter, along with its cuff and port. I sent a typical catheter for cultures. The rest of the catheter, cuff and port was sent to pathology. I made a third incision to attempt to place the port more proximally. When measuring the length of the catheter this did not seem to be appropriate. So I elected to use the old pocket for my new port placement. Using ultrasound guidance the left internal jugular vein was accessed. A guidewire was then placed down to the atriocaval junction using fluoroscopy. The finder needle was removed and the guidewire was secured. I performed local infiltration using plain lidocaine and bupivacaine at the site of the pocket and throughout the tunnel site. I confirmed adequate hemostasis at the pocket. I then proceeded to place the port that was already preassembled and flushed with heparinized saline and the chest pocket. I tunneled the catheter from the chest to the neck at the site where I accessed the internal jugular vein. I measured and adjusted the length of the catheter so it would reach the atrial caval junction. At this point, I used a dilator to dilate the tract into the internal jugular vein using fluoroscopy. I removed the guidewire and proceeded to thread the central venous catheter through the introducer. In the process, I removed the sheath as a completely pushed the catheter into the internal jugular vein. I then confirmed adequate placement of the catheter by performing intraoperative interpretation of fluoroscopy. The tip of the catheter was confirmed to be placed in the atriocaval junction. There were no kinks noted throughout the trajectory of the catheter. I then proceeded to test the port and was satisfied with its functionality. I proceeded to flushed the catheter without any issues. I then hep-locked the port. Skin was closed using deep dermal 3-0 Vicryl, subcuticular 4-0 Monocryl, and Dermabond. Patient was then transferred to PACU without any complications.
--- NOTE | 2025-01-08 14:05 | ANE.PACU2 ---
Inpatient post-anesthesia follow up: Airway intact: Yes Vital signs: Temperature 97.3 F Pulse Rate 67 Respiratory Rate 18 Blood Pressure 147/94 Pulse Oximetry 94 Oxygen Delivery Me thod Room Air Oxygen Flow Rate 2 Fraction of Inspir ed Oxygen Hydration adequate: Yes Nausea and vomiting: No Pain level: 1 Mental status: Baseline
--- NOTE | 2025-01-11 15:06 | SC_ITS ---
Exam: C-arm FL for CVA [id number] Date/Time of Exam: 01/08/2025 12:06 PM Reason For Exam: OR PICS DLP: Single AP C arm image of the central upper chest is submitted. The image depicts a LEFT subclavian port in place which appears to end in the mid superior vena cava region. Right-sided ICD partially visualized. Status post CABG surgery. No obvious pneumothorax. MTDD
== END 2025-01-08 14:07 | disposition home or self-care (01) ==
PROVIDERS: Anesthesiology; PCP Family Medicine; Visit Provider Student in an Organized Health Care Education/Training Program
PROC: (CPT 36561; principal; 2025-01-08 11:20)
PROC: (CPT 36589; 2025-01-08 11:20)
DX: Z45.2 Encounter for adjustment and management of vascular access device (principal); E11.22 Type 2 diabetes mellitus with diabetic chronic kidney disease; I12.0 Hypertensive chronic kidney disease with stage 5 chronic kidney disease or end stage renal disease; N18.6 End stage renal disease; K21.9 Gastro-esophageal reflux disease without esophagitis; I25.119 Atherosclerotic heart disease of native coronary artery with unspecified angina pectoris; Z95.810 Presence of automatic (implantable) cardiac defibrillator; E03.9 Hypothyroidism, unspecified; F41.9 Anxiety disorder, unspecified; F32.9 Major depressive disorder, single episode, unspecified; E11.42 Type 2 diabetes mellitus with diabetic polyneuropathy; I50.22 Chronic systolic (congestive) heart failure; E78.5 Hyperlipidemia, unspecified; I25.2 Old myocardial infarction
CPT/HCPCS: 36561; 36590; 36416; 76000; 77001; 82962; 84132; 87070; 87075; 87205; 88300; C1750; C1788; J0690; J1644; J2250; J2704; J3010; J3490; J7030; J9999

== ENCOUNTER → 2025-02-08 08:54 | Outpatient (BNVA) | payer MEDICARE, SELFPAY ==
[2024-03-20 13:31] VITALS: BP 125/53; BMI 35.0
== END ==
PROVIDERS: PCP Family Medicine; Visit Provider Student in an Organized Health Care Education/Training Program
DX: Z95.828 Presence of other vascular implants and grafts (principal)
CPT/HCPCS: 99024

== ENCOUNTER → 2025-02-09 14:02 | Outpatient (BNVA) | payer MEDICARE, SELFPAY ==
[2024-03-20 13:31] VITALS: BP 125/53; BMI 35.0
== END ==
PROVIDERS: PCP Family Medicine; Visit Provider Podiatrist Foot & Ankle Surgery
DX: E11.42 Type 2 diabetes mellitus with diabetic polyneuropathy (principal); L60.3 Nail dystrophy; L60.8 Other nail disorders; E11.8 Type 2 diabetes mellitus with unspecified complications; M21.372 Foot drop, left foot; M21.41 Flat foot [pes planus] (acquired), right foot; M21.42 Flat foot [pes planus] (acquired), left foot; N18.9 Chronic kidney disease, unspecified; Z79.4 Long term (current) use of insulin
CPT/HCPCS: 11721; 99213

== ENCOUNTER 2025-02-22 08:24 | Inpatient (IN) | payer MEDICARE, SELFPAY ==
[2024-03-20 13:31] VITALS: BP 125/53; BMI 35.0
[2025-02-22] VITALS (32 sets, daily range): BP systolic 87–179; BP diastolic 59–115; PULSE 66–175; RESP 12–39; TEMP 37; O2SAT 87–99; BMI 34.1
--- NOTE | 2025-02-22 08:25 | XR_ITS ---
WS: [id number] Portable AP upright chest, 02/22/2025 Clinical Data: Chest pain Comparison: Portable chest, 12/12/2024 Findings: No nodules, masses or effusions are seen. The heart is normal. The pulmonary vascularity is not increased. No pneumonia or pneumothorax is seen. There is minimal left basilar atelectasis. There is a left infusion catheter which ends at the superior vena cava. There are midline sternotomy sutures. There is a permanent pacemaker with the generator overlapping the right lateral chest. The aortic arch shows tortuosity. XR/XR chest 1V portable [id number] Impression: Atherosclerosis.
--- OUTSIDE RECORDS SUMMARY | 2025-02-22 08:37 | XMS_ITS | Clinical Summary ---
Author Organization [facility] Address [address] [place] [phone] Care Team Providers Care Computer Science Instructor Name Role Phone Kp Montanez Primary Care [...] for Pain. 15 Tablet 04/10/2018 11:19 AM WEED SPRAYER 8 Active nitroglycerin (NITROSTAT) 0.4 mg Tablet, [...] tablet Take 88 mcg by mouth daily handkerchief presser. Active metFORMIN (GLUCOPHAGE) 500 mg tablet Take 500 mg by mouth 2 times daily with meals. Active isosorbide mononitrate (IMDUR) 30 mg Extended Release 24 hour tablet Take 1 Tablet (30 mg) by mouth daily handkerchief presser. 30 Tablet 9 Active metoprolol tartrate (LOPRESSOR) [...] Overview (08/18/2012): secondary to fasciotomy Atherosclerosis of [place] co ronary artery of [place] heart with stable angina pectoris 08/18/2012 DM (diabetes mellitus), type 2, uncontrolled 05/2012 Hypothyroidism 08/18/2012 Benign hypertension CKD (chronic kidney disease) stage 2, GFR 60-89 ml/min Resolved Problems Problem Noted Date Diagnosed Date Resolved Date Acute chest pain 09/06/2018 10/27/2018 Elevated troponin 09/06/2018 10/27/2018 Grade I diastolic dysfunction 07/06/2018 10/27/2018 Chest pain 04/04/2018 07/06/2018 CAD in [place] artery 07/02/2013 019 CHF (congestive heart failure) [...] drink = 0.6 oz pur e alcohol) Feeling Safe Answer Date Recorded Within the last year, have y ou been afraid of your partner or ex-partner? No 09/05/2018 Within the last year, have y ou been humiliated or emotionally abused in other ways by your partner or ex-partner? No Within the last year, have y ou been kicked, hit, slapped, or otherwise physically hurt by your partner or ex-partner? No 09/05/2018 Within the last year, have y ou been raped or forced to have any kind of sexual activity by your partner or ex-partner? No 09/05/2018 Social Connections Answer Date Recorded In a typical week, how many times do you talk on the phone with family, friends, or neighbors? Patient declined 09/05/2018 How often do you get togethe r with friends or relatives? Patient declined 09/05/2018 How often do you attend gnosticist or spiritism serv ices? Patient declined 09/05/2018 Do you belong to any clubs o r organizations such as gnosticist groups, unions, [email or web address] or athletic groups, or school groups? Patient declined 09/05/2018 How often do you attend meet ings of the clubs or organizations you belong to? Patient declined 09/05/2018 Are you , , di vorced, , never , or living with a partner? Patient declined 09/05/2018 Sex and Gender Information Value Date Recorded [...] history exists Medical Devices Implanted Type Area Splitting Machine Operator Helper Device Identifier Shelf Expiration Date Model / Serial / Lot Port-06/04/2018 Implanted:2018 (Quantity not on file) Port Procedures Procedure Name Priority Date/Time Associated Diagnosis Comments LIPID PANEL Routine 01/25/2019 2:00 AM CDT HEMOGLOBIN A1C Routine 05/03/2014 9:04 AM WEED SPRAYER DM (diabetes mellitus), type 2, uncontrolled HTN (hypertension), benign from Last 3 Months or Most Recently Relevant to Health Maintenance Results * (ABNORMAL) LIPID PANEL (01/25/2019 2:00 AM CDT) CHOLESTEROL 133 <200 mg/dL 01/25/2019 2:42 AM CDT [facility] TRIGLYCERIDE 177(H) <150 mg/dL 01/25/2019 2:42 AM CDT [facility] HDL 33(L) 40 - 59 mg/dL 01/25/2019 2:42 AM CDT [facility] LDL CALCULATED 65 <100 mg/dL 01/25/2019 2:42 AM CDT [facility] NON-HDL CHOLESTEROL 100 <130 mg/dL 01/25/2019 2:42 AM CDT [facility] Blood Venipuncture / Unknown 01/25/2019 2:00 AM CDT 01/25/2019 2:15 AM CDT Narrative [facility] - 01/25/2019 2:42 AM CDT TOTAL CHOLESTEROL [...] John Teixeira MD CHEMISTRY ORDERABLES Final Result Performing Organization Address [facility] de Phone Number [facility] CLIA# [id number] [address] [place] [id number] * (ABNORMAL) HEMOGLOBIN A1C (05/03/2014 9:04 AM WEED SPRAYER) HEMOGLOBIN A1C 9.0(H) 4.0 - 6.0 % [facility] Comment: This test was performed on a [employer] VARIANT II instrument using HPLC methodology. Blood specimen (specimen) 05/03/2014 9:04 AM WEED SPRAYER 05/03/2014 9:05 AM WEED SPRAYER Nicolasa TORRES CHEMISTRY ORDERABLES Final R esult Performing Organization Address City/[facility]/ZIP Co de Phone Number INTERFACE SYSTEM Refer to clinic/hospital department [facility] CLIA# [id number] [address] [place] [address] from Last 3 Months or Most Recently Relevant to Health Maintenance Insurance [place] [address] DUAL COMPLETE MCR PPO D-SNP RX [employer] RX Member Subscriber Plan / Payer (Ef fective for All Dates) Name:Rei Queen II Relation to Subscriber:Self Name:Rei Queen II Payer ID:Not on file Group ID:[id number] Type:RX Medicare Part D Address: [address] Advance Directives For more information, please contact: [phone] * Full Code (Latest Code Status on [...] 9:34 PM 04/10/2018 3:22 PM Care Teams Computer Science Instructor Relationship Specialty Start Date End Date Kp Montanez DO [address] [address] PCP - General Internal Medicine 04/04/18
--- OUTSIDE RECORDS SUMMARY | 2025-02-22 08:37 | XMS_ITS | Encounter Summary ---
Author Organization [facility], [facility] Address [address] [place] [address] Phone Care Team Providers Care Radio Frequency Engineer Name Role Phone Kp Montanez Primary Care Provider [phone] Encounter Details Date Type Department Care Team (Late st Contact Info) Description 02/18/2025 Orders Only [facility] [employer] [facility] [address] [place] [address] Yesi Madison MD [address] [place] [address] Social History Tobacco Use Types [...] Procedure Name Priority Date/Time Associated Diagnosis Comments HD KINETICS Routine 02/18/2025 POST CHEMISTRY Routine 02/18/2025 HEMATOLOGY Routine 02/18/2025 CHEMISTRY Routine 02/18/2025 [facility] RESULTS Routine 02/18/2025 documented in this encounter Results * [facility] Results (02/18/2025) spKt/V Gotch 1.71 [facility] eKdrt/V 1.47 [facility] WSTDKT/V 2.5 [facility] nPCR_HD 1.17 [facility] eNPCR 1.09 [facility] spKt/V (Daugirdas II) 1.68 [facility] eKt/V Gotch 1.47 [facility] e [place] eKt/V ([place]) 1.45 [facility] PCR 81.14 [facility] 02/18/2025 02/18/2025 Valdo Ordering Provider LAB BLOOD ORDERABLES Final Result Performing Organization Address City/[facility]/ZIP Co de Phone Number [facility] Contact Performing lab Unknown, [place] * HD KINETICS (02/18/2025) % Urea Reduction 77 65 - 80 % [facility] 02/18/2025 02/19/2025 10: 57 AM CDT Narrative Resulting Agency Comment Specimen source: Plasma Yesi Madison MD LAB BLOOD ORDERABLES Final Re sult Performing Organization Address City/[facility]/ZIP Co de Phone Number [facility] See order comments or contact performing lab Unknown, [place] * POST CHEMISTRY (02/18/2025) BUN Post Dialysis 15 6 - 19 mg/dL [facility] 02/18/2025 02/19/2025 10: 57 AM CDT Narrative [facility] - 02/19/2025 Unless otherwise specified, test(s) performed at: [facility], [address] [place] [address] CANDY DIPPER: Jose Martin Mariscal M.D. For any questions, please call customer service at FREQUENCY:MONTHLY Resulting Agency Comment Specimen source: Plasma Yesi Madison MD LAB BLOOD ORDERABLES Final Re sult [facility] See order comments or contact performing lab Unknown, [place] * (ABNORMAL) [facility] Chemistry (02/18/2025) BUN 65(H) 6 - 19 mg/dL [facility] Creatinine 4.38(H) 0.60 - 1.30 mg/dL [facility] BUN/Creatinine Ratio 14.8 10.0 - 20.0 [facility] Sodium 133(L) 136 - 145 mEq/L [facility] Potassium 4.2 3.5 - 5.1 mEq/L [facility] Chloride 96 96 - 108 mEq/L [facility] Bicarbonate (CO2) 22 22 - 29 mEq/L [facility] Calcium 8.6 8.4 - 10.2 mg/dL [facility] Corrected Calcium 8.8 8.4 - 10.2 mg/dL [facility] Comment: Corrected Calcium is not equivalent to measured Ionized Calcium. Phosphorus 7.3(H) 2.6 - 4.5 mg/dL [facility] Calcium Phosphorus Product 63(H) 0 - 54 [facility] Calcium Phosporus Product, Cor 64(H) 0 - 54 [facility] Total Protein 6.3 6.0 - 8.5 g/dL [facility] Albumin 3.8 3.5 - 5.2 g/dL [facility] Globulin, Total 2.5 2.0 - 4.0 g/dL [facility] A/G Ratio 1.5 1.0 - 2.0 [facility] Glucose 112(H) 70 - 100 mg/dL [facility] Iron 55 45 - 160 mcg/dL [facility] UIBC 179 155 - 355 mcg/dL [facility] TIBC 234 185 - 515 mcg/dL [facility] Iron Saturation (TSat) 24 20 - 55 % [facility] 02/18/2025 02/19/2025 11: 36 AM CDT Narrative [facility] - 02/19/2025 Unless otherwise specified, test(s) performed at: [facility], [address] [place], [place] [id number] CANDY DIPPER: Jose Martin Mariscal M.D. For any questions, please call customer service at FREQUENCY:MONTHLY Resulting Agency Comment Specimen source: Serum us Yesi Madison MD LAB BLOOD ORDERABLES Final Re sult [facility] See order comments or contact performing lab Unknown, [place] * (ABNORMAL) HEMATOLOGY (02/18/2025) Neutrophils 74.1 40.0 - 75.0 % [facility] Lymphocytes Relative 12.4(L) 19.0 - 48.0 % [facility] Monocytes 7.4 3.0 - 10.0 % [facility] Eosinophils Relative 2.4 0.0 - 7.0 % [facility] Basophils Relative 1.6(H) 0.0 - 1.5 % [facility] MICHAEL 2.1 0.0 - 4.0 % [facility] WBC 8.60 4.80 - 10.80 1000/mcL [facility] RBC 3.64(L) 4.70 - 6.10 mill/mcL [facility] Hematocrit 36.0(L) 42.0 - 52.0 % [facility] MCV 99 80 - 100 fl [facility] MCH 33.1(H) 27.0 - 31.0 pg [facility] MCHC 33.4 30.0 - 36.0 g/dL [facility] RDW 13.9 11.5 - 14.5 % [facility] Hemoglobin 12.0(L) 14.0 - 18.0 g/dL [facility] Hemoglobin x 3 36(L) 42.0 - 54.0 % [facility] Platelets 261 130 - 400 1000/mcL [facility] 02/18/2025 02/19/2025 11: 21 AM CDT Narrative [facility] - 02/19/2025 Unless otherwise specified, test(s) performed at: [facility], [address] [place] [id number] CANDY DIPPER: Jose Martin Mariscal M.D. For any questions, please call customer service at FREQUENCY:MONTHLY Resulting Agency Comment Specimen source: Blood us Yesi Madison MD LAB BLOOD ORDERABLES Final Re sult [facility] See order comments or contact performing lab Unknown, [place] documented in this encounter Visit Diagnoses Not on filedocumented in this encounter Care Teams Radio Frequency Engineer Relationship Specialty Start Date End Date Kp Montanez DO [address] [place] [address] PCP - General Internal Medicine 01/07/23 documented as of this encounter
--- OUTSIDE RECORDS SUMMARY | 2025-02-22 08:37 | XMS_ITS | Encounter Summary ---
Author Organization [facility], [facility] Address [address] [place] [address] Phone Care Team Providers Care Elevating Grader Operator Name Role Phone MontanezKp kevin Primary Care Provider [phone] Encounter Details Date Type Department Care Team (Late st Contact Info) Description 02/18/2025 [facility], [facility] [address] [place] [address] Ghazal Schmitt NP [address] [place] [address] End stage renal disease; Dependence [...] encounter Miscellaneous Notes * Dialysis Note - Ghazal Schmitt NP - 02/18/2025 12:00 AM CDT Patient: Rei Queen, 1970, 54y, M Dialysis Location: [facility] Attending Doubling Machine Operator: Yesi Madison Service Date: 02/18/2025 Service Provider: Ghazal Schmitt NP I met face to face with the patient today. OVERVIEW The patient presented with ESRD on dialysis Primary cause of renal failure: Type 2 diabetes mellitus with diabetic chronic kidney disease Comments: Vital signs stable. Reviewed continuing to follow with cardiology. Medications and labs reviewed. 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 ICD in place DIALYSIS PRESCRIPTION IHD 3x Week Start date: 02/20/25 Dialyzer: 180NRe Optiflux BFR: 450 DFR: Autoflow 2 Potassium: 3.0 Sodium: 138 EDW: 94.2 Duration: 3:45 Calcium: 2.5 Bicarb: 32 Rx updated on: 02/20/2025 TREATMENT ASSESSMENT Comments: Stable BP Stand Pre 02/20/2025: 141/97 02/18/2025: 173/63 02/16/2025: 126/64 BP Sit Pre 02/20/2025: 107/81 02/18/2025: 151/76 02/16/2025: 157/93 BP Stand Post 02/20/2025: 113/80 02/18/2025: 133/97 02/16/2025: 120/65 BP Sit Post 02/20/2025: 140/87 02/18/2025: 126/63 02/16/2025: 143/68 Prescribed Tx time 02/20/2025: 3:45 02/18/2025: 3:45 02/16/2025: 3:45 Tx Duration 02/20/2025: 3:28 02/18/2025: 3:49 02/16/2025: 3:49 Missed Treatments 3 - last 30 days 3 - last 60 days 02/01 - recent FLUID ASSESSMENT Comments: ON bumex 2 mg EDW (kg) 02/20/2025: 93.2 02/18/2025: 93.2 02/16/2025: 93.3 Weight Pre (kg) 02/20/2025: 97.0 02/18/2025: 95.2 02/16/2025: 95.6 Weight Post (kg) 02/20/2025: 94.6 02/18/2025: 93.2 02/16/2025: 93.2 PWV (kg) 02/20/2025: 1.4 02/18/2025: 0.0 02/16/2025: -0.1 UF Rate (mL/kg/hr) 02/20/2025: 7.3 02/18/2025: 5.6 02/16/2025: 6.7 ADEQUACY ASSESSMENT Comments: Stable trend spKt/V, URR 02/18/2025: 1.68, 77.0 01/20/2025: 1.62, 77.0 12/25/2024: 1.56, 75.0 ACCESS ASSESSMENT Access Type: AVGraft Access SubType: Biological - Bovine Access Status: Active (In Use) - 01/31/2023 Access Location: Left Upper Arm Created: 09/28/2022 Flow 01/07/2025: 833 12/15/2024: 669 10/31/2024: 348 ANEMIA ASSESSMENT Comments: On IV iron and JENNIFER procotol HGB at goal. HGB, TSAT 02/18/2025: 12.0, 24.0 02/11/2025: 12.0, - 02/01/2025: 9.6, - Ferritin 01/20/2025: 482.0 12/22/2024: 522.0 10/22/2024: 171.0 Mircera, IVP (mcg) 02/02/2025: 30 01/05/2025: 30 Iron Sucrose (Venofer) (mg) 02/16/2025: 50 02/09/2025: 50 02/02/2025: 50 BMM ASSESSMENT Comments: Referred to dietitian. PTH, Intact 01/20/2025: 279.0 10/22/2024: 254.0 Calcium, Phosphorus 02/18/2025: 8.6, 7.3 01/20/2025: 8.1, 5.5 12/25/2024: 8.2, 5.2 NUTRITION ASSESSMENT Comments: Ed to increase albumin in diet. Potassium, Albumin 02/18/2025: 4.2, 3.8 01/20/2025: 4.5, 3.5 12/25/2024: 4.3, 3.4 eNPCR 02/18/2025: 1.09 01/20/2025: 0.58 12/25/2024: 0.76 PHYSICAL EXAM Exam Not Performed. DIAGNOSIS Chief Complaint: N18.6 End stage renal disease Patient data updated 02/21/2025 at 12:07 PM Signed By: Ghazal Schmitt NP on 02/21/2025 12:08:48 PM documented in this encounter Plan of Treatment Not on file documented as of this encounter Visit Diagnoses Diagnosis End stage renal disease Dependence on renal dialysis documented in this encounter Care Teams Elevating Grader Operator Relationship Specialty Start Date End Date Kp Montanez DO [address] [place] [address] PCP - General Internal Medicine 01/07/23 documented as of this encounter
--- OUTSIDE RECORDS SUMMARY | 2025-02-22 08:38 | XMS_ITS | Clinical Summary ---
Author Organization [facility] Address [address] [place] [address] Care Team Providers Care Selling Manager Name Role Phone Dez Evans MD Primary Care Provider [phone] Allergies Active Allergy Reactions Criticality Noted Date [...] tablet Take 88 mcg by mouth daily footwear sales leader. 9 Active atorvastatin (LIPITOR) 40 mg tablet [...] sugar). 4 Active naloxone (NARCAN) 4 mg/spray [place], Non-Aerosol EMERGENCY USE ONLY: Administer 1 spray (4 mg) in one nostril one time. May repeat in alternating nostrils every 2-3 min until responsive or EMS arrives. 2 Each 3 5 Active sacubitriL-vals tommy (ENTRESTO) 24-26 mg Tablet Take 1 Tablet by mouth daily. 200 Tablet 3 07/03/2024 4:14 PM COCOA PRESS OPERATOR 5 Active carvediloL (COREG) 12.5 mg tablet Take 1 Tablet (12.5 mg) by mouth 2 times daily. 30 Tablet 07/03/2024 4:14 PM COCOA PRESS OPERATOR 5 Active isosorbide mononitrate (IMDUR) 60 mg Extended Release 24 hour tablet Take 1 Tablet (60 mg) by mouth daily in the morning. 30 Tablet 07/03/2024 4:14 PM COCOA PRESS OPERATOR 5 Active HYDROcodone-fede taminophen (NORCO) 5-325 mg [...] (10/17/2022): Added automatically from request for surgery [id number] Scrotal pain 02/07/2021 Adenoma of both adrenal glands 05/24/2019 Overview (10/17/2022): Seen on CT abd at [facility] 10/[address] abd at [facility] 10/2018 Diverticulosis 05/24/2019 History of pulmonary embolism [...] Overview (11/24/2020): secondary to fasciotomy Atherosclerosis of [place] co ronary artery of [place] heart with stable angina pectoris 08/18/2012 DM [...] Encounters Date Type Department Care Team Description 01/13/2025 External Device Data [facility] ABSTRACTION Provider, Abstract 01/05/2025 External Device Data [facility] ABSTRACTION Provider, Abstract 01/05/2025 External Device Data [facility] ABSTRACTION Provider, Abstract 12/04/2024 Telephone [facility] [address] [place] [id number] Shannan Goodwin MD Question from Last 3 Months Immunizations Immunization Administration Dates Next Due (ADACEL/BOOSTRIX)(10 YR UP) TDAP VACCINE, 0.5ML, IM 05/30/2021 (HEPLISAV-B)(18 YR UP) HEPAT ITIS B VACCINE CPG-ADJUVANTED (HEPB-CPG) 2-4 DOSE, IM 10/30/2022,08/25/2022,07/21/2022,06/23 (PNEUMOVAX 23)(50 YRS UP) PN EUMOCOCCAL POLYSACCHARIDE (PPV23) 0.5 ML, IM 09/18/2022,05/25/2019 (PREVNAR 20)(6 WKS UP) PNEUM OCOCCAL CONJUGATE VACCINE 20-VALENT (PCV20), POLYSACCHARIDE [id number] CONJUGATE, ADJUVANT 0.5 ML (PF) IM 06/26/2022 [...] on file Legal Sex Male 2:43 AM COCOA PRESS OPERATOR Gender Identity Not on file Sexual [...] 11/13/2024 3:25 PM CDT Plan of Treatment Health Maintenance [...] 10/31/2023 10/30/2022, 08/25/2022, 07/21/2022, Additional history exists LDL CHOLESTEROL ANNUAL 05/02/2024 3, 01/25/2019, 09/06/2018, Additional history exists INFLUENZA VACCINE (#1) 2024 4, 06/14/2022, 03/01/2021, Additional history exists COVID-19 Vaccine (3 - 2024-2 6 season) 2025 11/05/2020, 10/08/2020 DIABETES HBA1C Q 6 MONTHS 04/23/20252024, 06/27/2024, 05/02/2023, Additional history exists DTAP/TDAP/TD VACCINES (2 - T d or Tdap) 05/30/2031 05/30/2021, 05/30/2021 ZOSTER VACCINE Completed 08/10/2020, 06/06/2020 Medical Devices Implanted Type Area Appliquer Device Identifier Shelf Expiration Date Model / Serial / Lot Clip Ligating Horizon Red [id number] - Csc - [id number] Implanted:Qty : 1 on 09/28/2022 by Guero Felder MD at [facility] Clip Left: Arm [employer] INC [id number] 12/25/2026 [id number] / / [id number] Clip Ligating Horizon Med Ti 129050 - Csc - [id number] Implanted:Qty : 1 on 09/28/2022 by Guero Felder MD at [facility] Clip Left: Arm TELEFLEX- WECK CLOSURE SYS [id number] 10/08/2026 528750 / / [id number] Clip Ligating Horizon Red 427178 - Csc - [id number] Implanted:Qty : 1 on 11/14/2022 by Jimmy Anaya MD at [facility] Clip Left: Arm [employer]LE[employer] INC [id number] 12/25/2026 [id number] / / [id number] Clip Ligating Horizon Med Ti 768924 - Csc - [id number] Implanted:Qty : 1 on 11/14/2022 by Jimmy Anaya MD at [facility] Clip Left: Arm TELEFLEX- WECK CLOSURE SYS [id number] 02/12/2027 [id number] / / [id number] Closure Perclose Prostyle Sut Mediate 63939-04 - [id number] Implanted:Qty : 1 on 05/03/2023 by Jay Bales MD at [facility] Closure Device Right: Groin SALAS- VASC DEVICE 01/17/2025 65467-2 3 / / [id number] Dev Closure Angioseal 6fr Vip 425049 - [id number] Implanted:Qty : 1 on 05/03/2023 by Jay Bales MD at [facility] Closure Device Right: Groin [facility] 10/11/2023 [id number] / / [id number] Dev Closure Angioseal 6fr Vip 978160 - [id number] Implanted:Qty : 1 on 06/19/2024 by Prince Barfield MD at [facility] Closure Device Right: Groin TERUMO- CARDIOVASC SYS 01/13/2025 [id number] / / [id number] Dev Icd Acticor 7 Vr-T Dx Df4 Hybrid 537441 - [id number] Implanted:Qty : 1 on 07/23/2024 by Stephani Keen MD at [facility] Defibrillator Right: Chest Wall [employer] INC [id number] 05/19/2026 083673 / [id number] / Graft Vasc Propaten 4-7rzn30zx K092523s - [id number] Implanted:Qty : 1 on 09/28/2022 by Guero Felder MD at [facility] Graft Left: Arm [employer] [id number] 04/02/2026 [id number] / [id number] 2026-03 Hemostatic Surgicel 1x2in 1960 - [id number] Implanted:Qty : 1 on 09/28/2022 by Guero Felder MD at [facility] Hemostatic Left: Arm J&J- [employer] INC [id number] 02/16/20251960 / / [id number] Hemostatic Surgicel 1x2in 1960 - [id number] Implanted:Qty : 1 on 09/28/2022 by Guero Felder MD at [facility] Hemostatic Left: Arm J&J- [employer] INC [id number] 12/17/20241960 / / [id number] Lead Endocardial Pamira S Dx 65/15 Rv W Atr Sensing 983661 - [id number] Implanted:Qty : 1 on 07/23/2024 by Stephani Keen MD at [facility] Lead Right: Chest Wall [employer] [id number] 05/19/2026 [id number] / [id number] / Power Port Implanted:(Qu antity not on file) Explanted:(Qu antity not on file) Port Port- 9 Implanted: (Quantity not on file) Port Suture Perchik 2 Button Pouch [id number] - [id number] Implanted:Qty : 1 on 08/23/2023 at [facility] Screw [employer] [id number] / / Description:This is Not an I mplant Stent Implanted:(Qu antity not on file) Explanted:(Qu antity not on file) Stent Stent Synergy Xd 3.5x16mm Evrlms Elut [id number] - [id number] Implanted:Qty : 1 on 05/03/2023 by Jay Bales MD at [facility] Stent Left: Coronary [employer] 01/01/2025 [id number] / / [id number] Stent Viabahn Hep 8mmx7.5xcm [id number] - [id number] Implanted:Qty : 1 on 10/23/2023 by Jimmy Anaya MD at [facility] Stent Left: Arm [employer] [id number] 12/23/2025 [id number] / [id number] / Procedures Procedure Name Priority Date/Time Associated Diagnosis Comments HEMOGLOBIN A1C Routine 06/27/2024 5:39 AM COCOA PRESS OPERATOR LIPID PANEL Routine 05/02/2023 9:36 PM COCOA PRESS OPERATOR from Last 3 Months or Most Recently Relevant to Health Maintenance Results * (ABNORMAL) HEMOGLOBIN A1C (06/27/2024 5:39 AM COCOA PRESS OPERATOR) HEMOGLOBIN A1C 6.6(H) <=5.6 % 06/29/2024 9:10 AM [facility] EST. AVG GLUCOSE, A1C 143 mg/dL 06/29/2024 9:10 AM [facility] Blood Collection / Unknown 06/27/2024 5:39 AM COCOA PRESS OPERATOR 06/27/2024 6:05 AM COCOA PRESS OPERATOR [facility] - 06/29/2024 9:10 AM COCOA PRESS OPERATOR HGB A1C INTERPRETATION NORMAL: <5.7% PRE-DIABETES: 5.7 - 6.4% DIABETES: 6.5% OR GREATER Joey Vo DO CHEMISTRY ORDERABLES Final R esult [facility] CLIA # [id number] [address] [place] [address] * (ABNORMAL) LIPID PANEL (05/02/2023 9:36 PM COCOA PRESS OPERATOR) Pathologist [facility] CHOLESTEROL 224(H) <200 mg/dL 05/03/2023 10:26 PM [facility] TRIGLYCERIDE 286(H) <150 mg/dL 05/03/2023 10:26 PM [facility] HDL 39(L) 40 - 59 mg/dL 05/03/2023 10:26 PM [facility] LDL CALCULATED 128(H) <100 mg/dL 05/03/2023 10:26 PM [facility] NON-HDL CHOLESTEROL 185(H) <130 mg/dL 05/03/2023 10:26 PM [facility] Blood Venipuncture / Unknown 05/02/2023 9:36 PM COCOA PRESS OPERATOR 05/02/2023 9:51 PM COCOA PRESS OPERATOR Narrative [facility] - 05/03/2023 10:26 PM COCOA PRESS OPERATOR TOTAL CHOLESTEROL mg/dL Desirable <200 Borderline high [...] Reference Ranges for Lipid Panels (NCEP/AMA) . Shaggy Covarrubias MD CHEMISTRY ORDERABLES Final Resul t [facility] Ferfics [facility] CLIA # [id number] [address] from Last 3 Months or Most Recently Relevant to Health Maintenance Insurance [place] [place] [id number] * Guarantor: SMITHA DOWNEY II Account Type Relation to Patient Date of Phone Billing Address Personal/Family [address] [place] [phone] RX [facility] [facility] Commercial RX INFOCROSSING Medicaid RX [employer] RX Member Subscriber Plan / Payer (Ef fective for All Dates) Name:Smitha Downey II, Junior Relation to Subscriber:Self Name:Smitha Downey II, Junior Payer ID:Not on file Type:RX Medicare Part D Address: [place] [place] Advance Directives For more information, please contact: [phone] Documents on File Type Date Recorded Patient Heel Pricker Expl anation Advance Directive POA 08/23/2014 4:06 [...] 2:16 AM 07/03/2024 6:07 PM Care Teams Selling Manager Relationship Specialty Start Date End Date Dez Evans MD [address] [place] [phone] PCP - General Family Practice 06/18/24
--- OUTSIDE RECORDS SUMMARY | 2025-02-22 08:38 | XMS_ITS | Patient Health Record ---
Author Organization [facility] Address [address] [place] [address] Care Team Providers Care Cable Tool Operator Name Role Phone Cristina RITTER, Dez Primary Care Provider UnavailElizabeth Jon Unavailable [phone] Pee Castaneda MD Unavailable Unavailable Ray Sherman Unavailable [phone] Migration, Provider Unavailable Unavailable Ajit Silver Unavailable [phone] Allergies Allergen (clinical drug ingredient) Drug/Non Drug [...] Notes Urine Confirmation Panel (in strument) - [id number] Reviewed date:09/01/2024 08:59:18 AM Interpretation: Performing Lab: [...] Administration. Urine Drug Screen (cup read) - 99070 Reviewed date:01/07/2025 03:06:32 PM Interpretation: Performing Lab: Notes/Report: OPI + Tox Results Reviewed date:07/21/2024 11:36:15 AM Interpretation: Performing Lab: Notes/Report: Urine Confirmation Panel (in strument) - [id number] Reviewed date:11/10/2024 02:00:57 PM Interpretation: Performing Lab: [...] the U.S. Food and Drug Administration. Gabapentin >27538 <225 ng/mL > This test was developed [...] Administration. Urine Drug Screen (cup read) - 79639 Reviewed date:11/05/2024 02:20:09 PM Interpretation: Performing Lab: Notes/Report: BUP + OPI + OXY + Tox Results Reviewed date:11/10/2024 02:08:00 PM Interpretation: Performing Lab: Notes/Report: Reason For Referral Reason Rectal Bleed COLON Referring Provider First Name Pee Referring Provider Last Name Leonel Referring Provider Speciality Family Med icine Referred Organization [facility] Referred Provider Ray Sherman Referred Address [address] [facility] [place],[address] Referred Provider Specialty Gastroentero logy General Notes Taisha Godoy 09/22 04:14:39 PM >classroom monitor Referral Priority Routine Reason chronic back pain gr eater than three months duration Diagnosis 1 Other chronic pain ( G89.29) Referring Provider First Name Kp Referring Provider Last Name Lisseth Referring Provider Speciality Internal M edicine Referred Organization [facility] Referred Provider Eran Block Referred Address [address] [facility],[address] Referred Provider Specialty Pain Medicin e General Notes Tania Freeman 1 06/28/2023 11:04:24 AM >LVM to schedule new appt. 04/27/24 Referral Priority Routine Reason low back and neck pa in Diagnosis 1 Lumbar radiculopathy (M54.16) Diagnosis 2 Cervical radiculopat hy (M54.12) Referral Organization [facility] Referring Provider First Name Elizabeth Referring Provider Last Name Canales Referring Provider Speciality Pain Medic ine Referred Provider [facility] Referred Provider Specialty Preventive M edicine Referral Priority Routine Medications Medication SIG (Take, Route, Frequency, Duration) Notes Start Date End Date Status Gabapentin 100 MG Capsule 1 capsule Orally Once a day Unknown FLUoxetine HCl 20 MG Capsule 1 capsule Orally Once a day Unknown Fluticasone Propionate 50 MCG/ACT Suspension 1 spray in each nostril as needed Nasally Once a day Unknown HYDROcodone-Acetaminop hen 7.5-325 MG Tablet 1 tablet Orally every 6 hrs; Duration: 30 days As needed Not to exceed 4 per day Fill on 02/18/2025 01/07/2025 03/20/2025 Active Clopidogrel Bisulfate 75 MG Tablet 1 tablet Orally Once a day Unknown Eliquis 2.5 MG Tablet 1 tablet Orally twice daily Unknown Carvedilol 6.25 MG Tablet 1 tablet with food Orally Twice a day Unknown Tresiba FlexTouch 200 UNIT/ML Solution Pen-injector 3 ml Subcutaneous daily Unknown Citalopram Hydrobromide 40 MG Tablet 1 tablet Orally Once a day Unknown buPROPion HCl ER (XL) 300 MG Tablet Extended Release 24 Hour 1 tablet in the morning Orally Once a day Unknown tiZANidine HCl 2 MG Tablet 1 tablet at bedtime as needed Orally Once a day Unknown busPIRone HCl 5 MG Tablet 1 tablet Orally Twice a day Unknown traZODone HCl 100 MG Tablet 1 tablet at bedtime Orally Once a day Unknown Sevelamer Carbonate 800 MG Tablet 1 tablet with meals Orally Three times a day Unknown Bumetanide 2 MG Tablet 1 tablet Orally twice a day Unknown Stool Softener 100 MG Capsule 2 capsules Orally twice a day 02/19/2024 Unknown RenaPlex-D - Tablet 1 tablet Orally daily Unknown Aspirin 81 81 MG Tablet Delayed Release 1 tablet Orally Once a day Unknown Atorvastatin Calcium 40 MG Tablet 1 tablet Orally Once a day Unknown Promethazine HCl 25 MG Tablet 1 tablet as needed Orally every 12 hrs Unknown Ranolazine ER 500 MG Tablet Extended Release 12 Hour 1 tablet Orally Twice a day Unknown Nitroglycerin 0.4 MG Tablet Sublingual as directed Sublingual as needed Unknown Metoprolol Tartrate 25 MG Tablet 1 tablet with food Orally Twice a day Unknown Mounjaro 15 MG/0.5ML Solution Pen-injector 0.5 ml Subcutaneous weekly Unknown Levothyroxine Sodium 88 MCG Tablet 1 tablet in the morning on an empty stomach Orally Once a day Unknown Losartan Potassium 50 MG Tablet 1 tablet Orally Once a day Unknown GaviLAX 17 GM Packet 1 packet mixed with 8 ounces of fluid Orally three time a day Unknown Isosorbide Mononitrate ER 30 MG Tablet Extended Release 24 Hour 1 tablet in the morning Orally twice a day Unknown Social History Tobacco Use: Social History [...] is on disability Patient is on disability Patient is on disability Problems Problem Type SNOMED Code ICD Code Onset Dates Problem Status W/U Status Risk Notes Problem Chronic pain (66866597) Other chronic pain (G89.29) Active confirmed Problem Chronic pain syndrome (640563762) Chronic pain syndrome (G89.4) Active confirmed Problem Atherosclerotic heart disease of [place] coronary artery without angina pectoris (434426514525043 ) Atherosclerotic heart disease of [place] coronary artery without angina pectoris (I25.10) Active confirmed [id number] m ed Description:Patricia nary arteriosclerosis Problem Presence of coronary angioplasty implant and graft (Z95.5) Active confirmed [id number] om ed Description:Hist ory of placement of stent for coronary artery disease Problem Cervical radiculopathy (43032581) Cervical radiculopathy (M54.12) Active confirmed Problem Lumbar radiculopathy (616563381) Lumbar radiculopathy (M54.16) Active confirmed Problem Long-term current use of drug therapy (122181067) Long-term use of high-risk medication (Z79.899) Active confirmed Problem Abnormal gait (59029879) Abnormality of gait and mobility (R26.9) Active confirmed Problem Essential hypertension (10535653) Essential primary hypertension (I10) Active confirmed [id number] m ed Description:Holger mendiola essential hypertension Vital Signs Height-cm 165.1 cm 11/05/2024 Weight-kg 90.72 kg 11/05/2024 Height 65 in 11/05/2024 Weight 200 lbs 11/05/2024 BMI 33.28 kg/m2 11/05/2024 Encounters Encounter Location Date Provider Diagnosis Formerly [facility] [address] [address] 06/24/2024 Ajit Silver Chronic pain syndrom e G89.4 ; Lumbar radiculopathy M54.16 ; Atherosclerotic heart disease of [place] coronary artery without angina pectoris I25.10 ; Abnormality of gait and mobility R26.9 and Long-term use of high-risk medication Z79.899 [facility] [address] [address] 07/15/2024 Ajit Silver Chronic pain syndrom e G89.4 ; Lumbar radiculopathy M54.16 ; Atherosclerotic heart disease of [place] coronary artery without angina pectoris I25.10 and Long-term use of high-risk medication Z79.899 [facility] [address] [address] 09/02/2024 Ajit Silver Chronic pain syndrom e G89.4 ; Lumbar radiculopathy M54.16 ; Atherosclerotic heart disease of [place] coronary artery without angina pectoris I25.10 and Long-term use of high-risk medication Z79.899 [facility] [address] [place] [address] 11/05/2024 Elizabeth Canales Chronic pain syndrom e G89.4 ; Cervical radiculopathy M54.12 ; Lumbar radiculopathy M54.16 ; Atherosclerotic heart disease of [place] coronary artery without angina pectoris I25.10 and Long-term use of high-risk medication Z79.899 [facility] [address] [place] [address] 01/07/2025 Elizabeth Canales Chronic pain syndrom e G89.4 ; Cervical radiculopathy M54.12 ; Lumbar radiculopathy M54.16 ; Atherosclerotic heart disease of [place] coronary artery without angina pectoris I25.10 and Long-term use of high-risk medication Z79.899 [facility] 0 03/14/2024 Provider Migration [facility] 0 03/15/2024 Provider Migration [facility] [address] [place] [address] 02/24/2024 [facility] [address] [place] [address] 02/25/2024 [facility] [address] [place] [address] 03/09/2024 [facility] [address] [place] [address] 11/05/2024 Ajit Silver Lumbar radiculopathy M54.16 [facility] [address] [place] [address] 01/07/2025 Ajit Silver Lumbar radiculopathy M54.16 [facility] [address] [place] [address] 01/11/2025 Elizabeth Canales Assessments Encounter Date Diagnosis (ICD Code) Assessment Notes Treatment Notes Treatment Clinical Notes Section Notes 07/15/2024 Chronic pain syndrome (ICD-10 - G89.4) I had a nice visit with the patient today regarding his chronic pain issues. He's had a lot going on since his last appointment. He had a myocardial infarction and pneumonia and was in the [facility] for a bit of time. [...] weeks. 07/15/2024 Lumbar radiculopathy (ICD-10 - M54.16) 11/05/2024 Lumbar radiculopathy (ICD-10 - M54.16) 01/07/2025 Chronic pain syndrome (ICD-10 - G89.4) I had a nice discussion with the patient today regarding his chronic pain complaints. He continues with neck and lower back pain but does feel his lower back pain is worsening. He has not started his physical therapy that we ordered at his last visit but does state that he is without a phone right now. Therefore when he is around a phone he is going to call and make an appointment to get started with physical therapy. He feels his hydrocodone is lacking in strength lately and he is struggling to get through his days. After a long discussion of treatment options, I will trial him on an increase of his hydrocodone to 7.5/325 4/day. He denies any changes in his health since we last seen him or any untoward side effects of the medication. I did discuss lifestyle modifications as well as a bowel [...] effects are noted. Last UDS and [place] [employer]IVESTOCK BROKER reviewed today. Patient is advised that best long-term goals include increased activity, core strengthening, proper weight management, coping strategies, avoidance of painful triggers, and targeted interventional therapy. We will see the patient for routine follow up in accordance with all clinic policies. We did remind patient today of current guidelines to decrease opioid when possible. We will continue to stress nonopioid treatment. URINE TESTING TODAY; POINT OF SERVICE Urine drug screening will be performed today to monitor compliance with opioid therapy or to serve as a baseline screen for a patient who may be a candidate for opioid therapy in the future, pending UDS results. We will monitor with in-office testing (rapid testing) today and review the results prior to dispensing prescription, as well. Patient has been made aware of this policy. 01/07/2025 Lumbar radiculopathy (ICD-10 - M54.16) 11/05/2024 Chronic pain syndrome (ICD-10 - G89.4) [...] effects are noted. Last UDS and [place] [employer]IVE[employer]OCK BR[employer]ER reviewed today. Patient is advised that best [...] policy. 11/05/2024 Cervical radiculopathy (ICD-10 - M54.12) 09/02/2024 Chronic pain syndrome (ICD-10 - G89.4) [...] in about 2 months and proceed accordingly. 06/24/2024 Chronic pain syndrome (ICD-10 - G89.4) [...] effects are noted. Last UDS and [place] [employer] BR[employer]ER reviewed today. Patient is advised that best [...] treatment. 06/24/2024 Lumbar radiculopathy (ICD-10 - M54.16) 06/24/2024 Atherosclerotic heart disease of [place] coronary artery without angina pectoris (ICD-10 - I25.10) [id number] Description:Damon ry arteriosclerosis 09/02/2024 Lumbar radiculopathy (ICD-10 - M54.16) 11/05/2024 Lumbar radiculopathy (ICD-10 - M54.16) 01/07/2025 Cervical radiculopathy (ICD-10 - M54.12) 07/15/2024 Atherosclerotic heart disease of [place] coronary artery without angina pectoris (ICD-10 - I25.10) [id number] Description:Damon ry arteriosclerosis 07/15/2024 Long-term use of [...] to abide by our urine testing policy. 01/07/2025 Lumbar radiculopathy (ICD-10 - M54.16) 11/05/2024 Atherosclerotic heart disease of [place] coronary artery without angina pectoris (ICD-10 - I25.10) [id number] Description:Damon ry arteriosclerosis 09/02/2024 Atherosclerotic heart disease of [place] coronary artery without angina pectoris (ICD-10 - I25.10) [id number] Description:Damon ry arteriosclerosis 06/24/2024 Abnormality of gait and mobility (ICD-10 - R26.9) 06/24/2024 Long-term use of high-risk medication (ICD-10 - Z79.899) 09/02/2024 Long-term use of high-risk medication (ICD-10 - Z79.899) 11/05/2024 Long-term use of high-risk medication (ICD-10 - Z79.899) 01/07/2025 Atherosclerotic heart disease of [place] coronary artery without angina pectoris (ICD-10 - I25.10) [id number] Description:Damon ry arteriosclerosis 01/07/2025 Long-term use of high-risk medication (ICD-10 - Z79.899) 06/24/2024 Other Duane Rodriguez am scribing for [...] Pending Test Test Name Order Date Diagnostic Colonoscopy-[id number] 02/19/2024 Next Appt Details Provider Name:Ajit Silver, 03/10/2025 09:20:00 AM, [address] [place], [address], Insurance Providers Payer Name Payer Address Payer Phone Subscriber Number Group Number Insured Name Patient Relationship to Insured Coverage Start Date Coverage End Date [facility] Medicare Advantage - PPO [address] [address] [place] [address] [phone] [id number] SMITHA Downey Self - patient is the insured [facility] Medicare Dual Complete PPO [address] [address] [place] [address] [phone] [id number] SMITHA Downey Self - patient is the insured [place] Medicaid [address] [place] [address] [id number] SMITHA Downey Self - patient is the [...]
--- OUTSIDE RECORDS SUMMARY | 2025-02-22 08:38 | XMS_ITS | Encounter Summary ---
Author Organization [facility], [facility] Address [address] [place] [address] Phone Care Team Providers Care Hr Associate Name Role Phone Kp Montanez DO Primary Care Provider [phone] Reason for Visit * Reason Comments Med Refill Encounter Details Date Type Department Care Team (Late st Contact Info) Description 11/17/2021 Refill [facility] [address] [facility] [facility] [address] [place] [address] Antolin Weiss MD [address] [place] [address] Social History Tobacco Use Types [...] on filedocumented in this encounter Care Teams Hr Associate Relationship Specialty Start Date End Date Kp Montanez DO [address] [place] [address] PCP - General Internal Medicine 01/07/23 documented as of this encounter
--- OUTSIDE RECORDS SUMMARY | 2025-02-22 08:38 | XMS_ITS | Encounter Summary ---
Author Organization [facility], [facility] Address [address] [place] [address] Phone Care Team Providers Care Special Education Kindergarten Teacher Name Role Phone MontanezKp kevin Primary Care Provider [phone] Encounter Details Date Type Department Care Team (Late st Contact Info) Description 09/29/2024 [facility] [address] [place] [address] Ayad Monahan, METAL FURNITURE ASSEMBLER [address] [place] [address] Social History Tobacco Use Types [...] 09/29/2024 The patient was seen for a vpzi-qf-zjpz visit as part of Transitional Care Management services. Attending Pyridine Operator: RITA MENENDEZ Dialysis Location: [facility] Schedule: Shift: 1 INTERACTIVE [...] 98.1*F Current Dialysis Vitals BP Sit: 159/81 AP/SUPERVISOR RIDE ASSEMBLY: 198/162 Pulse: 86 CARE COORDINATION No follow-up appointments noted. COMMENTS: no new referrals. EDUCATION Education relevant to the discharge diagnosis provided to the patient or caregiver IMPRESSION & PLAN COMMENTS: 1.hemodialysis access problem; fistulogram completed. Now working well. 2. ESRD on HD: Continue HD TTS. VISIT DIAGNOSES CPT Code 87304 - High complexity, seen within 7 days [...] on filedocumented in this encounter Care Teams Special Education Kindergarten Teacher Relationship Specialty Start Date End Date Kp Montanez DO [address] [place] [address] PCP - General Internal Medicine 01/07/23 documented as of this encounter
--- OUTSIDE RECORDS SUMMARY | 2025-02-22 08:38 | XMS_ITS | Encounter Summary ---
Author Organization [facility], [facility] Address [address] [place] [address] Phone Care Team Providers Care Safety Aide Name Role Phone MontanezKp kevin Primary Care Provider [phone] Encounter Details Date Type Department Care Team (Late st Contact Info) Description 07/14/2024 [facility] [address] [place] [address] Ayad Monahan, ASSET AVAILABILITY LEADER [address] [place] [address] Social History Tobacco Use Types [...] 07/14/2024 The patient was seen for a rhgv-bl-ikhr visit as part of Transitional Care Management services. Attending Chief Vendor Quality: RITA MENENDEZ Dialysis Location[facility] [...] 97.8*F Current Dialysis Vitals BP Sit: 140/78 AP/STONE LATHE OPERATOR: -- Pulse: 79 CARE COORDINATION Post-discharge follow-up appointments reviewed with the patient. COMMENTS: following Cardiology EDUCATION Education relevant to the discharge diagnosis provided to the patient or caregiver VISIT DIAGNOSES CPT Code 13121 - High complexity, seen 8-14 days post discharge or moderate complexity, seen xrxnwe10 days of discharge. R07.9 Chest pain, unspecified N18.6, Z99.2 End stage renal disease;Dependence on renal dialysis Signed by: AYAD MONAHAN NP on 07/14/2024 at 01:27:20 PM Transcribed by: AYAD MONAHAN NP on 07/14/2024 at 01:27:20 PM documented in this encounter Plan of Treatment Not on file documented as of this encounter Visit Diagnoses Not on filedocumented in this encounter Care Teams Safety Aide Relationship Specialty Start Date End Date Kp Montanez DO [address] [place] [address] PCP - General Internal Medicine 01/07/23 documented as of this encounter
--- OUTSIDE RECORDS SUMMARY | 2025-02-22 08:38 | XMS_ITS | Encounter Summary ---
Author Organization [facility], [facility] Address [address] [place] [address] Phone Care Team Providers Care Market President Name Role Phone Kp Montanez DO Primary Care Provider [phone] Reason for Visit * Reason Comments Med Refill Encounter Details Date Type Department Care Team (Late st Contact Info) Description 05/08/2021 Refill [facility] [address] [facility] [address] [place] [address] Ghazal Schmitt NP [address] [facility] [address] [place] [address] Social History Tobacco Use Types [...] on filedocumented in this encounter Care Teams Market President Relationship Specialty Start Date End Date Kp Montanez DO [address] [place] [address] PCP - General Internal Medicine 01/07/23 documented as of this encounter
--- OUTSIDE RECORDS SUMMARY | 2025-02-22 08:38 | XMS_ITS | Clinical Summary ---
Author Organization [facility] Facility Address [address] [address] Care Team Providers Care Principal Network Architect Name Role Phone Kp Montanez DO Primary Care Provider [phone] Allergies Active Allergy Reactions Criticality Noted Date [...] taking.Reported on 06/25/2024 bumetanide (BUMEX) 2 MG tabletIndications:Fluid Pump Operator jose combined systolic and diastolic heart failure [...] Overview (04/26/2020): Seen on CT abd at [facility] 10/2018 Coronary arteriosclerosis 05/24/2019 Noncompliance with medication regimen 10/27/2018 Essential hypertension 09/06/2018 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 ilure 09/06/2018 Normocytic anemia 09/06/2018 Chronic kidney disease stage 4 06/26/2018 Overview (2020): Update for Diagnosis Load 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 06/26/2018 Combined hyperlipidemia 01/15/2013 Acquired hypothyroidism 08/18/2012 Encounters Date Type Department Care Team Description 02/18/2025 Treatment [facility] [employer] [employer] [address] [place] [address] Ghazal Schmitt NP End stage renal disease; Dependence on renal dialysis 02/18/2025 Orders Only [facility] [address] [place] [address] Yesi Madison MD 02/11/2025 Orders Only [facility] [address] [place] [address] Yesi Madison MD 02/09/2025 Treatment 8[facility] [address] [place] [address] Yesi Madison MD End stage renal disease; Dependence on renal dialysis 02/02/2025 Treatment [facility] [address] [place] [address] Ghazal Schmitt NP End stage renal disease; Dependence on renal dialysis 02/01/2025 Orders Only [facility] [address] [place] [address] Yesi Madison MD 01/20/2025 Orders Only [facility] [address] [place] [address] Yesi Madison MD 01/19/[address] [place], [place] [address]rology [facility], [facility] [address] [place] [address] Zoey Johnson NP End stage renal disease; Dependence on renal dialysis 01/14/2025 [facility] [address] [place] [address] Yesi Madison MD 01/12/[address] [place] [address], [facility] [address] [place] [address] Zoey Johnson NP End stage renal disease; Dependence on renal dialysis 01/07/2025 Orders Only [facility], [facility] [address] [place] [address] Yesi Madison MD 01/05/[address] [place] [address], [facility] [address] [place] [address] Yesi Madison MD End stage renal disease; Dependence on renal dialysis 12/31/2024 [facility] [address] [place] [address] Yesi Madison MD 12/29/[address] [place] [address], [facility] [address] [place] [address] Zoey Johnson NP End stage renal disease; Dependence on renal dialysis 12/25/[address] [place] [address], [facility] [address] [place] [address] Ghazal Schmitt NP End stage renal disease; Dependence on renal dialysis 12/25/2024 [facility] [address] [place] [address] Yesi Madison MD 12/22/2024 Orders [facility], [facility] [address] [place] [address] Yesi Madison MD 12/22/2024 Documentation Only [facility] [place] [address] [place] [address] Pamela Sevilla DO 12/22/2024 Documentation Only [facility], [facility] [address] [place] [address] Yoselyn Vila MA 12/17/2024 Orders Only [facility], [facility] [address] [address] Yesi Madison MD 12/10/2024 Orders Only [facility], [facility] [address] [address] Yesi Madison MD 12/03/2024 Orders Only [facility], [facility] [address] [address] Yesi Madison MD 12/01/[address] [facility], [facility] [address] [address] Zoey Johnson NP End stage renal disease; Dependence on renal dialysis 11/27/2024 [facility] [address] [address] Yesi Madison MD 11/24/2024 Telephone [facility], [facility] [address] [address] Yesi Madison MD 11/24/[address] [facility], [facility] [address] [address] Ghazal Schmitt NP End stage renal [...] 06/06/2020, Additional history exists Diabetes: Hemoglobin A1C 04/21/2025 025, 10/22/2024, 07/22/2024, Additional history exists Pneumococcal Vaccine: Peds ( 0 to 5 Years) and At-Risk Patients (6 to 49 Years) Discontinued 09/18/2022, 05/25/2019 Procedures Procedure Name Priority Date/Time Associated Diagnosis Comments [facility] RESULTS Routine 02/18/2025 HD KINETICS Routine 02/18/2025 POST CHEMISTRY Routine 02/18/2025 CHEMISTRY Routine 02/18/2025 HEMATOLOGY Routine 02/18/2025 HEMATOLOGY Routine 02/11/2025 HEMATOLOGY Routine 02/01/2025 [facility] RESULTS Routine 01/20/2025 HD KINETICS Routine 01/20/2025 POST CHEMISTRY Routine 01/20/2025 SPECIAL CHEMISTRY Routine 01/20/2025 IMMUNO CHEMISTRY Routine 01/20/2025 THYROIDS Routine 01/20/2025 CHEMISTRY Routine 01/20/2025 SPECIAL CHEMISTRY Routine 01/20/2025 CHEMISTRY Routine 01/20/2025 TRACE ELEMENTS Routine 01/20/2025 HEMATOLOGY Routine 01/20/2025 HEMATOLOGY Routine 01/14/2025 IMMUNO CHEMISTRY Routine 01/14/2025 HEMATOLOGY Routine 01/07/2025 HEMATOLOGY Routine 12/31/2024 [facility] RESULTS Routine 12/25/2024 HD KINETICS Routine 12/25/2024 POST CHEMISTRY Routine 12/25/2024 CHEMISTRY Routine 12/25/2024 HEMATOLOGY Routine 12/25/2024 CHEMISTRY Routine 12/22/2024 CHEMISTRY Routine 12/17/2024 HEMATOLOGY Routine 12/10/2024 HEMATOLOGY Routine 12/03/2024 CHEMISTRY Routine 11/27/2024 HEMATOLOGY Routine 11/27/2024 from Last 3 Months Results * HD KINETICS (02/18/2025) Only the most recent of3 resultswithin the time period is included. % Urea Reduction 77 65 - 80 % [facility] 02/18/2025 02/19/2025 10: 57 AM CDT Narrative Resulting Agency Comment Specimen source: Plasma us Yesi Madison MD LAB BLOOD ORDERABLES Final Re sult [employer] See order comments or contact performing lab Unknown, [place] * POST CHEMISTRY (02/18/2025) Only the most recent of3 resultswithin the time period is included. BUN Post Dialysis 15 6 - 19 mg/dL [facility] 02/18/2025 02/19/2025 10: 57 AM CDT Narrative [facility] - 02/19/2025 Unless otherwise specified, test(s) performed at: [email or web address], [address] [place] [address] WELD ENGINEER: Jose Martin Mariscal M.D. For any questions, please call customer service at FREQUENCY:MONTHLY Resulting Agency Comment Specimen source: Plasma Yesi Madison MD LAB BLOOD ORDERABLES Final Re sult [employer] See order comments or contact performing lab Unknown, [place] * (ABNORMAL) HEMATOLOGY (02/18/2025) Only the most recent of11 resultswithin the time period is included. Neutrophils 74.1 40.0 - 75.0 % Spectra [...] 02/19/2025 Unless otherwise specified, test(s) performed at: [email or web address], [address] [place] [address] WELD ENGINEER: Jose Martin Mariscal M.D. For any questions, please call customer service at FREQUENCY:MONTHLY Resulting Agency Comment Specimen source: Blood Yesi Madison MD LAB BLOOD ORDERABLES Final Re sult [facility] See order comments or contact performing lab Unknown, [place] * (ABNORMAL) [facility] Chemistry (02/18/2025) Only the most recent of7 resultswithin the time period is included. BUN 65(H) 6 - 19 mg/dL Spect[facility] [...] 02/19/2025 Unless otherwise specified, test(s) performed at: [email or web address], [address] [place] [address] WELD ENGINEER: Jose Martin Mariscal M.D. For any questions, please call customer service at FREQUENCY:MONTHLY Resulting Agency Comment Specimen source: Serum Yesi Madison MD LAB BLOOD ORDERABLES Final Re sult Performing Organization Address [facility] de Phone Number [facility] See order comments or contact performing lab Unknown, [place] * [facility] Results (02/18/2025) Only the most recent of3 resultswithin the time period is included. spKt/V Gotch 1.71 [facility] eKdrt/V 1.47 [facility] WSTDKT/V 2.5 [facility] nPCR_HD 1.17 [facility] eNPCR 1.09 [facility] spKt/V (Daugirdas II) 1.68 [facility] eKt/V Gotch 1.47 [facility] e Center eKt/V ([place]) 1.45 [facility] PCR 81.14 [facility] 02/18/2025 02/18/2025 [facility] Ordering Provider LAB BLOOD ORDERABLES Final Result Performing Organization Address [facility] de Phone Number [facility] Contact Performing lab Unknown, [place] * (ABNORMAL) THYROIDS (01/20/2025) Pathologist [facility] TSH 3.923(H) 0.300 - 3.000 mIU/L [facility] Comment: The reference range of 0.300-3.000 mIU/L is recommended by the [place] [employer] Clinical Endocrinologists (AACE). An ESRD population contains about 20% of individuals with TSH of up to 20 mIU/L and normal free T4 consistent with non-thyroidal illness. ESRD patients with true hypothyroidism develop persistent values above 20 mIU/L. 01/20/2025 01/21/2025 4:1 0 PM CDT Narrative Resulting Agency Comment Specimen source: Serum Yesi Madison MD LAB BLOOD ORDERABLES Final Re sult Performing Organization Address [facility] Co de Phone Number [facility] See order comments or contact performing lab Unknown, [place] * SPECIAL CHEMISTRY (01/20/2025) Only the most recent of2 resultswithin the time period is included. Pathologist [facility] Creatine Kinase (CK/CPK) 34 30 - 223 U/L [facility] 01/20/2025 01/21/2025 4:1 0 PM CDT Narrative [facility] - 01/21/2025 Unless otherwise specified, test(s) performed at: [email or web address], [address] [place] [address] WELD ENGINEER: Jose Martin Mariscal M.D. For any questions, please call customer service at FREQUENCY:MONTHLY Resulting Agency Comment Specimen source: Serum Yesi Madison MD LAB BLOOD BANK TEST ORDERABLE S Final Result [employer] See order comments or contact performing lab Unknown, [place] * IMMUNO CHEMISTRY (01/20/2025) Only the most recent of2 resultswithin the time period is included. Pathologist [facility] Hepatitis C Antibody Nonreactive Nonreactive [facility] Comment: No HCV antibody detected. The above test result was obtained using Siemens Centaur XP chemiluminescent method. Results obtained with different assay methods or kits cannot be used interchangeably. S/CO Ratio <0.02 0.00 - 0.79 [facility] Comment: s/co ratio Interpretation Supplemental testing <0.80 Nonreactive No further testing required. 0.80-0.99 Equivocal HCV RNA Quantitative Real-Time PCR is recommended. 1.00->11.00 Reactive HCV RNA Quantitative Real-Time PCR is recommended to distinguish active from resolved cases. 01/20/2025 01/21/2025 4:1 0 PM CDT Narrative Resulting Agency Comment Specimen source: Serum Yesi Madison MD LAB BLOOD ORDERABLES Final Re sult [employer] See order comments or contact performing lab Unknown, [place] * TRACE ELEMENTS (01/20/2025) Pathologist [facility] Aluminum <5 0 - 10 mcg/L [facility] Comment: This test was developed and its performance characteristics determined by [email or web address]. It has not been cleared or approved by the FDA. The laboratory is regulated under CLIA as qualified to perform high complexity testing. This test is used for clinical purposes. It should not be regarded as investigational or for research. 01/20/2025 01/21/2025 10: 21 AM CDT Brian SMITH - 01/21/2025 Unless otherwise specified, test(s) performed at: [email or web address], [address] [place] [address] WELD ENGINEER: Jose Martin Mariscal M.D. For any questions, please call customer service at FREQUENCY:MONTHLY Resulting Agency Comment Specimen source: Serum us Yesi Madison MD LAB BLOOD ORDERABLES Final Re sult [employer] See order comments or contact performing lab Unknown, [place] from Last 3 Months Insurance [facility] Medicare Care Teams Principal Network Architect Relationship Specialty Start Date End Date Kp Montanez DO [address] [place] [address] PCP - General Internal Medicine 01/07/23
--- OUTSIDE RECORDS SUMMARY | 2025-02-22 08:38 | XMS_ITS | Encounter Summary ---
Author Organization [facility], [facility] Address [address] [place] [address] Phone Care Team Providers Care Dust Brush Assembler Name Role Phone Kp Montanez Primary Care Provider [phone] Encounter Details Date Type Department Care Team (Late st Contact Info) Description 12/24/2018 Orders Only [facility] [address] [place] [address] Antolin Weiss MD [address] [place] [address] Chronic kidney disease stage 3; [...] Mckeon MA - 12/17/2018 2:15 PM CDT [facility] [address] [place] [address] us Antolin Weiss MD LAB BLOOD ORDERABLES Fi nal Result * PTH, intact (CKD3a) (12/17/2018 1:55 PM CDT) Parathyroid Hormone, Intact 119.3 pg/mL Blood specimen (specimen) 12/17/2018 1:55 PM CDT Leslie Mckeon MA - 12/17/2018 2:15 PM CDT [facility] [address] [place] [address] us Antolin Weiss MD LAB BLOOD ORDERABLES [...] Benson MA - 12/17/2018 2:15 PM CDT [facility] Clinical Laboratory [address] [place] [address] Antolin Weiss MD LAB BLOOD ORDERABLES Fi [...] Mckeon MA - 12/17/2018 2:15 PM CDT [facility] [address] [place] [address] us Antolin Weiss MD LAB BLOOD ORDERABLES Fi nal Result documented in this encounter Visit Diagnoses Diagnosis Chronic kidney disease stage 3 (HCC) Type 2 diabetes mellitus with diabetic chronic kidney disease (HCC) documented in this encounter Care Teams Dust Brush Assembler Relationship Specialty Start Date End Date Kp Montanez DO [address] [place] [address] PCP - General Internal Medicine 01/07/23 documented as of this encounter
--- OUTSIDE RECORDS SUMMARY | 2025-02-22 08:38 | XMS_ITS | Encounter Summary ---
Author Organization [facility], [facility] Address [address] [facility] [address] [place] [address] Phone Care Team Providers Care Glass Melt Operator Name Role Phone Kp Montanez DO Primary Care Provider [phone] Reason for Visit * Reason Comments Med Refill Encounter Details Date Type Department Care Team (Late st Contact Info) Description 03/07/2022 [facility] [address] [place] [address] Ghazal Schmitt, TOOL MAINTENANCE TECHNICIAN [address] [facility] [address] [place] [address] Chronic combined systolic and diastolic [...] failure documented in this encounter Care Teams Glass Melt Operator Relationship Specialty Start Date End Date Kp Montanez DO [address] [place] [address] PCP - General Internal Medicine 01/07/23 documented as of this encounter
--- NOTE | 2025-02-22 08:53 | ECG_ITS ---
[employer] [facility] [employer] Test Date: 2025-02-22 Pat Name: Rei Queen Department: Room: Gender: Male Strickler Attendant: : 1970 Requested By: Timo Hart Order Number: [id number] Becky MD: Karen Choi M.D. Measurements Intervals [place] Rate: 101 P: 64 NH: 200 QRS: 22 QRSD: 107 T: 108 QT: 348 QTc: 452 Interpretive Statements SINUS TACHYCARDIA POSSIBLE ANTERIOR MYOCARDIAL INFARCTION , OF INDETERMINATE AGE [30 ms Q WAVE IN V3/V4, OR R < 0.2 mV IN V4] INTERPRETATION BASED ON A DEFAULT AGE OF 40 YEARS Compared to ECG 12/12/2024 09:47:18 Sinus rhythm no longer present Left-axis deviation no longer present Myocardial infarct finding still present Electronically Signed On 02-22-2025 23:26:52 CDT by Karen Choi M.D. [email or web address]
--- NOTE | 2025-02-22 09:16 | PC.NURSE ---
Christa RN accessed pt's chest port. Blood taken to lab.
[2025-02-22 09:38] LABS: Alanine Aminotransferase 8 U/L (0-41); Albumin Level 3.6 g/dL (3.5-5.2); Alkaline Phosphatase 92 U/L (40-130); Anion Gap 19.2 (5-19); Aspartate Amino Transferase 12 U/L (0-40); Blood Urea Nitrogen 55 mg/dL (6-20); Calcium 9.0 mg/dL (8.5-10.5); Carbon Dioxide 22 mmol/L (22-29); Chloride 100 mmol/L (98-107); Creatinine Clr Calc Pharmacy 22.7483; Globulin 3.0 g/dL (1.3-4.6); Glucose 216 mg/dL (65-115); Osmolality Calculated 306 mOsm/kg (285-295); Potassium 4.2 mmol/L (3.5-5.1); Sodium 137 mmol/L (136-145); Total Protein 6.6 g/dL (6.6-8.7)
[2025-02-22 09:39] LABS: Hematocrit 34.1 % (37-53); Hemoglobin 11.70 g/dL (11.27-16.99); Mean Corpuscular HGB Conc 34.3 g/dL (30-55); Mean Corpuscular Hemoglobin 32.4 pg (27-33); Mean Corpuscular Volume 94.5 fl (82-101); Nucleated Red Blood Cells % 0 %; Platelet Count 337 10^3/cmm (157-399); Red Blood Count 3.61 10^6/uL (3.85-5.65); White Blood Count 8.24 10^3/uL (3.29-11.43)
[2025-02-22 09:42] LABS: Troponin(5th) Baseline 110 ng/L (0-15)
[2025-02-22 09:47] LABS: Glucose Urine UA 2+ (Normal); Nitrate Urine Negative (Negative); Specific Gravity, Urine 1.015 (1.005-1.030)
[2025-02-22 09:48] LABS: Add Urine Microscopic? YES
[2025-02-22] MEDS: morphine 4 mg/mL SDV 1 mL 2 MG IVP ×2 (10:00→17:18)
[2025-02-22] MEDS: LORazepam 1 MG/0.5 ML injection IVP (10:04)
--- NOTE | 2025-02-22 10:16 | W.ED.CHESTPA ---
HPI - Chest Pain General: Chief Complaint: Chest Pain Stated Complaint: chest pain Time Seen by Provider: 02/22/25 08:24 History of Present Illness: 54-year-old presents to the emergency room stating he had some slight chest pain he thinks his defib may have shocked him this morning. Patient has certain degree of chronic chest pain he has known heart disease end-stage renal disease he is on dialysis he has dialysis Saturday he did have his regular run of dialysis on Saturday. He is mildly short of breath. He did not take any nitro this morning. Associated symptoms: Deny abdominal pain, dyspnea or fever(s) Related Data Home Medications ?Medication ?Instructions ?Recorded ?Confirmed diphenhydramine HCl 25 mg tablet 50 mg PO DAILY PRN Allergy Symptoms 05/02/23 02/22/25 (Benadryl Allergy) insulin lispro 100 unit/mL See Rx Instructions .Route .COMPLEX 05/02/23 02/22/25 subcutaneous pen (Humalog KwikPen (U-100) Insulin) vit B,C-folic ac 800 mcg-zinc 12.5 1 tab PO BEDTIME 10/29/23 02/22/25 mg-selen-D3 2,000 unit-vit E tablet (RenaPlex-D) tizanidine 2 mg tablet 2 mg PO BID PRN Muscle Spasm 03/24/24 02/22/25 promethazine 25 mg tablet 25 mg PO Q6H PRN Nausea 04/21/24 02/22/25 acetaminophen 500 mg tablet 1,000 mg PO QID PRN Pain 06/04/24 02/22/25 (Tylenol Extra Strength) apixaban 2.5 mg tablet (Eliquis) 2.5 mg PO BID 12/08/24 02/22/25 Held on 01/08/25. Instructions: Resume on 01/09/25. gabapentin 300 mg capsule 300 mg PO BID 12/08/24 02/22/25 insulin degludec 200 unit/mL (3 40 unit SUBCUT QAM 12/08/24 02/22/25 mL) subcutaneous pen (Tresiba FlexTouch U-200 insulin) levothyroxine 88 mcg tablet 88 mcg PO QAM 12/08/24 02/22/25 ranolazine 1,000 mg 1,000 mg PO BID 12/08/24 02/22/25 tablet,extended release,12 hr hydrocodone 7.5 mg-acetaminophen 1 tab PO Q6H PRN Pain 01/07/25 02/22/25 325 mg tablet bumetanide 2 mg tablet 2 mg PO DAILY 02/22/25 02/22/25 sacubitril 24 mg-valsartan 26 mg 2 tab PO DAILY 02/22/25 02/22/25 tablet (Entresto) Previous Rx's ?Medication ?Instructions ?Recorded nitroglycerin 0.4 mg sublingual 0.4 mg sublingual Q5M PRN Chest 08/27/23 tablet (Nitrostat) Pain #25 tabs blood-glucose sensor (Tripnarycom G7 #9 ea 12/14/24 Sensor device) semaglutide 2 mg/dose (8 mg/3 mL) 2 mg (0.75 mL) SUBCUT Q7D #9 mL 01/01/25 subcutaneous pen injector (Ozempic) Allergies Allergy/AdvReac Type Severity Reaction Status Date / Time Iodinated Contrast Media Allergy Severe ALGY-Difficulty Verified 02/09/25 14:20 Breathing iodine Allergy Severe ALGY-Difficulty Verified 02/09/25 14:20 Breathing metoclopramide (From Reglan) Allergy Severe ALGY-Difficulty Verified 02/09/25 14:20 Breathing nalbuphine (From Nubain) Allergy Severe ADR-Diarrhe Verified 02/09/25 14:20 a naproxen (From Naprosyn) Allergy Severe ADR-Vomitin Verified 02/09/25 14:20 g Sulfa (Sulfonamide Allergy Severe ALGY-Difficulty Verified 02/09/25 14:20 Antibiotics) Breathing ketorolac Allergy Intermediate ADR-Nausea Verified 02/09/25 14:20 ondansetron (From Zofran) Allergy Intermediate ADR-Abdominal Verified 02/09/25 14:20 Pain prochlorperazine (From Allergy Intermediate ADR-Irritab Verified 02/09/25 14:20 Compazine) le codeine AdvReac Severe ALGY-Anaphy Verified 02/09/25 14:20 laxis haloperidol (From Haldol) AdvReac Intermediate ADR-Irritab Verified 02/09/25 14:20 le Review of Systems Const: Denies: fever(s) or chills Card: Reports: chest pain Resp: Denies: dyspnea GI: Denies: abdominal pain : Denies: dysuria, urinary frequency or urinary urgency Musc: Denies: neck pain or back pain Skin/Breast: Denies: rash PFSH ED PFSH: Medical History Contrast media allergy Thoracic disc disease Non-pressure chronic ulcer of other part of left foot limited to breakdown of skin Bilateral pes planus Hammertoe of left foot Rupture of extensor tendon of foot Kidney failure DM2 (diabetes mellitus, type 2) ICD (implantable cardioverter-defibrillator) in place Atherosclerotic heart disease of [place] coronary artery with other forms of angina pectoris hx of CAD with prior stenting of proximal LAD, LCx, RCA ESRD (end stage renal disease) Hypothyroidism Generalized anxiety disorder Major depressive disorder, recurrent severe without psychotic features Pericarditis Elevated troponin Essential hypertension Psychiatric care 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 mellitus CRF (chronic renal failure) Chronic right SI joint pain Chronic systolic heart failure UTI (urinary tract infection) Peripheral arterial disease PVD (peripheral vascular disease) Worsening angina Angina at rest Uremic encephalopathy D-dimer, elevated Acute on chronic congestive heart failure History of pulmonary embolism Acute kidney injury superimposed on CKD GERD (gastroesophageal reflux disease) Alcohol use disorder, moderate, in sustained remission DVT (deep venous thrombosis) (~03/2020) Proximal left subclavian, basilic and brachial veins, started eliquis this stay, felt present prior to admission Chronic kidney disease -baseline Cr appears to be around 1.5 Ischemic cardiomyopathy Onychodystrophy Chronic anticoagulation Eliquis Osteoarthritis of spine Hyperlipidemia Depression Anemia Foot drop, left H/O acute myocardial infarction Surgical History Peritoneal dialysis catheter in situ (06/15/21) History of appendectomy 1995 History of excision of mass 06/08/2019: Subcutaneous mass on back History of removal of Port-a-Cath Port-A-Cath in place H/O vasectomy Hx of cholecystectomy History of coronary artery stent placement 5x H/O skin graft History of inguinal hernia repair, bilateral 2000 H/O removal of testicle left H/O colonoscopy (11/14/20) 08/2015 H/O esophagogastroduodenoscopy (11/14/20) 08/2015 Family History Grandfather Cancer skin cancer Parkinson disease Brother Hypertension Father Heart disease Mother Hypertension Stroke Aneurysm Grandmother Aneurysm Other Crohn's disease Denies family history of Anesthesia complication Bleeding disorder Social History Smoking and tobacco/nicotine status: unknown if used tobacco/nicotine Second hand smoke exposure: No Alcohol intake: former Year of sobriety/quit date alcohol: 2015 Former alcohol use details: Only holidays - last use 05.19.2015 Substance/Drug Use: never Adopted: No Caregiver/support person: No Lives independently: Yes Household members: spouse Housing: Apartment Marital status: Number of children: 2 Number of grandchildren: 0 Highest education level completed: High School Graduate service: No Current occupational status: disabled Pets and animals: Yes Pets & animals: dog(s) Leisure activites: games and other Leisure activities details: watching TV Sexually active: Yes Do you think of yourself as: Straight/Heterosexual Current gender identity: Male Shannon/Yarsani: Mu-Ism Special shannon needs: No Agree to transfusion: Yes Physical Exam Const: GENERAL APPEARANCE: cooperative ORIENTATION/CONSCIOUSNESS: Yes awake, Yes oriented to person, Yes oriented to place and Yes oriented to time HENMT: COMMON NORMALS: normocephalic, atraumatic and hearing grossly normal bilaterally HEAD & SCALP: normocephalic and atraumatic Resp: COMMON NORMALS: normal respiratory effort, No retractions, No use of accessory muscles and clear to auscultation bilaterally AUSCULTATION: clear to auscultation bilaterally Cardio: COMMON NORMALS: regular rate, regular rhythm and No murmurs present (Cardio) RATE: regular rate RHYTHM: regular rhythm GI: COMMON NORMALS: Soft to palpation and No hepatosplenomegaly present AUSCULTATION: Yes normoactive bowel sounds PALPATION: Yes Soft to palpation, No Tenderness to palpation present (GI), No Guarding due to palpation present (GI) and Yes No hepatosplenomegaly present Extremity: COMMON NORMALS: normal to inspection, capillary refill normal, no clubbing, cyanosis or edema, no calf tenderness and no pedal edema Neuro: SENSORIUM/ORIENTATION: Yes oriented to person, Yes oriented to place and Yes oriented to time Skin: COMMON NORMALS: no rashes or lesions noted GENERAL SKIN EXAM: no rashes or lesions noted Course Vital Signs: Vital signs: Vital Signs Pulse Rate 101 H 02/22/25 14:00 Respiratory Rate 20 H 02/22/25 14:09 Blood Pressure 165/96 02/22/25 13:45 Pulse Oximetry 89 L 02/22/25 14:09 Oxygen Delivery Me thod Room Air 02/22/25 14:46 MDM - Chest Pain Medical Decision Making Patient continued to have chest pain. Pacemaker interrogation showed that he did have a discharge from his ICD. He has a positive delta of 25. Discussed with cardiology given he still having chest pain they recommend observation he is not having any acute ST changes at this time patient has had extensive coronary disease has had frequent interventions even within the last year. Discussed with cardiology they recommend observation. Also recommend starting heparin. Discussed with hospitalist orders written. He has not had any further arrhythmias while in the emergency room. Medical Records I reviewed the patient's medical records. Lab Data I reviewed the patient's lab results. 02/22/25 09:10 02/22/25 09:10 Radiology Impressions Chest X-Ray 02/22/25 08:25 Impression: Atherosclerosis. Laboratory Results WBC 8.24 10^3/uL (3.29-11.43) 02/22/25 09:10 RBC 3.61 10^6/uL (3.85-5.65) L 02/22/25 09:10 Hgb 11.70 g/dL (11.27-16.99) 02/22/25 09:10 Hct 34.1 % (37-53) L 02/22/25 09:10 MCV 94.5 fl (82-101) 02/22/25 09:10 MCH 32.4 pg (27-33) 02/22/25 09:10 MCHC 34.3 g/dL (30-55) 02/22/25 09:10 RDW 13.1 % (12.1-15.1) 02/22/25 09:10 Plt Count 337 10^3/cmm (157-399) 02/22/25 09:10 MPV 9.3 fL (7.4-10.4) 02/22/25 09:10 Neut % (Auto) 74.6 % 02/22/25 09:10 Lymph % (Auto) 14.7 % 02/22/25 09:10 [place] % (Auto) 8.5 % 02/22/25 09:10 Eos % (Auto) 1.1 % 02/22/25 09:10 Baso % (Auto) 0.7 % 02/22/25 09:10 Neut # (Auto) 6.15 10^3/uL (1.8-7.7) 02/22/25 09:10 Lymph # (Auto) 1.2 10^3/uL (0.8-4.8) 02/22/25 09:10 [place] # (Auto) 0.7 10^3/uL (0.2-0.9) 02/22/25 09:10 Eos # (Auto) 0.1 10^3/uL (0.0-0.8) 02/22/25 09:10 Baso # (Auto) 0.1 10^3/uL (0.0-0.1) 02/22/25 09:10 Nucleated RBC % (auto) 0 % 02/22/25 09:10 Nucleated RBCs # 0.0 /100WBC 02/22/25 09:10 Sodium 137 mmol/L (136-145) 02/22/25 09:10 Potassium 4.2 mmol/L (3.5-5.1) 02/22/25 09:10 Chloride 100 mmol/L (98-107) 02/22/25 09:10 Carbon Dioxide 22 mmol/L (22-29) 02/22/25 09:10 Anion Gap 19.2 (5-19) H 02/22/25 09:10 BUN 55 mg/dL (6-20) H 02/22/25 09:10 Creatinine 3.8 mg/dL (0.7-1.2) H 02/22/25 09:10 GFR Calculation 16.6 mL/min (90-130) L 02/22/25 09:10 Glucose 216 mg/dL (65-115) H 02/22/25 09:10 Calculated Osmolality 306 mOsm/kg (285-295) H 02/22/25 09:10 Calcium 9.0 mg/dL (8.5-10.5) 02/22/25 09:10 Total Bilirubin 0.5 mg/dL (0.15-1.2) 02/22/25 09:10 AST 12 U/L (0-40) 02/22/25 09:10 ALT 8 U/L (0-41) 02/22/25 09:10 Alkaline Phosphatase 92 U/L (40-130) 02/22/25 09:10 Troponin T Baseline 110 ng/L (0-15) H* 02/22/25 09:10 Troponin T 120 Minute 135 ng/L (0-15) H 02/22/25 11:05 Delta Troponin T 25 ABS# (0-10) H* 02/22/25 11:05 Total Protein 6.6 g/dL (6.6-8.7) 02/22/25 09:10 Albumin 3.6 g/dL (3.5-5.2) 02/22/25 09:10 Globulin 3.0 g/dL (1.3-4.6) 02/22/25 09:10 Urine Color Yellow (Yellow) 02/22/25 09:20 Urine Appearance Clear (CLEAR) 02/22/25 09:20 Urine pH 6 (5-7) 02/22/25 09:20 Ur Specific [place] 1.015 (1.005-1.030) 02/22/25 09:20 Urine Protein 2+ (Negative) H 02/22/25 09:20 Urine Glucose (UA) 2+ (Normal) H 02/22/25 09:20 Urine Ketones Negative (Negative) 02/22/25 09:20 Urine Blood Trace (Negative) H 02/22/25 09:20 Urine Nitrate Negative (Negative) 02/22/25 09:20 Urine Bilirubin Neg (Negative) 02/22/25 09:20 Urine Urobilinogen Norm mg/dL (Negative) 02/22/25 09:20 Ur Leukocyte Esterase Negative (Negative) 02/22/25 09:20 Urine RBC Rare /hpf (0-2) 02/22/25 09:20 Urine WBC Rare /hpf (0-5) 02/22/25 09:20 Ur Squamous Epith Cells None /hpf (0-5) 02/22/25 09:20 Amorphous Sediment Not Reportable 02/22/25 09:20 Urine Bacteria None /hpf (NONE) 02/22/25 09:20 All radiology interpretation(s) finalized by discharge EKG Data EKG 1: Interpretation: EKG 02/22/2025 sinus tachycardia rate 101 parable 200 QTc 452. No significant change from previous EKG 12/12/2024 EKG 2: Interpretation: EKG 02/22/2025 sinus rhythm no acute changes. Rate of 83 [place] interval 194 QTc 449. EKG compared to EKG 02/22/2025 8:37 AM Discharge Plan Discharge Patient Disposition: Admitted As Inpatient Admit Provider: Jose Hightower Clinical Impression: Elevated troponin, Hypertension, DM2 (diabetes mellitus, type 2), Chest pain, Atherosclerotic heart disease of [place] coronary artery with other forms of angina pectoris, Implantable cardioverter-defibrillator (ICD) discharge Condition: Stable Coding Level of Care Code ED Hand Splitter for Chg Fwd Heart Score HEART Score Components History: Highly Suspicious EKG: Non-specific Changes Age: 45-64 yrs Risk Factors: >/=3 Risk Factors Troponin: Baseline Trop >45 ng/L HEART Score RESULT HEART Score: 8
--- NOTE | 2025-02-22 10:47 | PC.NURSE ---
Attempted to do [employer] defib interrogation which was unsuccessful, did not connect. PT is unsure which brand his defibrillator is, states he had it placed years ago in [facility].
--- NOTE | 2025-02-22 10:53 | ECG_ITS ---
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 Measurements Intervals [place] Rate: 83 P: 47 DC: 194 QRS: 8 QRSD: 114 T: 98 QT: 380 QTc: 449 Interpretive Statements SINUS RHYTHM POSSIBLE LEFT ATRIAL ENLARGEMENT [-0.1mV P-WAVE IN V1/V2] POSSIBLE ANTERIOR MYOCARDIAL INFARCTION , OF INDETERMINATE AGE [30 ms Q WAVE IN V3/V4, OR R < 0.2 mV IN V4] MODERATE T-WAVE ABNORMALITY, CONSIDER LATERAL ISCHEMIA [-0.1+ mV T-WAVE IN I/aVL/V5/V6] Compared to ECG 02/22/2025 08:37:35 T-wave abnormality now present Possible ischemia now present Sinus tachycardia no longer present Myocardial infarct finding still present Electronically Signed On 02-22-2025 23:31:19 CDT by Karen Choi M.D. [email or web address]
--- NOTE | 2025-02-22 11:16 | PC.NURSE ---
attempted to interrogate with [place], unsuccessful. [facility] with no answer.
[2025-02-22 12:19] LABS: Troponin 5 2HR 135 ng/L (0-15); Troponin 5 2HR Delta 25 ABS# (0-10)
[2025-02-22] MEDS: morphine 4 mg/mL SDV 1 mL IVP ×2 (14:09→21:43)
[2025-02-22] MEDS: heparin 5,000 unit/mL INJ 1 mL 4000 UNIT IVP (14:09)
--- NOTE | 2025-02-22 16:17 | PM.CONSULT ---
Providers/Reason For Consult Consulting Physician/Specialty*: LAYLA Choi MD/cardiology Reason for Consult*: Patient with ICD discharge/chest pain Requesting Physician: Dr. Hightower Attending Physician: Jose Hightower MD Primary Care Provider: Dez Evans MD History of Present Illness History of Present Illness Rei Queen II is a 54 year old male with multiple medical problems, is admitted to the hospital emergency room where he presented with complaints of chest pain and an ICD discharge. According the patient, he has been in his baseline state of health up until this weekend when he started having chest discomfort, several times a day. He has been having these episodes lasting anywhere from 5 to 10 minutes and then spontaneously subsides. No definite precipitating factors. This morning, he was having more chest heaviness. He was sitting up at the breakfast table with his . All of a sudden, he had the ICD discharge. Since history discharge, he had several episodes of chest discomfort. Intensity of the pain was around 9/10, soon after he ICD discharge. As of now, the pain is 4/10. It has been intermittent. No definite debilitating factors. No fever, chills or cough. The ICD was interrogated in the emergency room. Patient was found to have wide-complex tachycardia. He had ATP in the beginning followed by 1 DC shock of 40 J. Apparently after the ATP, patient was found to have heart rate in the V-fib zone. The rhythm strip shows possible atrial flutter Rei Queen II is a 53 year old male with a history of atherosclerotic heart disease, status post multiple PCI, cardiomyopathy ,congestive heart failure, chronic kidney disease, on hemodialysis, is presenting with complaints of chest pain. Most recently, patient had the cardiac colorization in March of last year. At that time, he had PCI of the proximal RCA and distal circumflex artery. These were in-stent stenosis for which he underwent balloon angioplasty. The stents in the LAD and PDA were found to be patent. Since then, had a multiple ER visits and hospital admissions. He was admitted 1 time with features of pericarditis, soon after the PCI it was treated medically This patient is known to have chronic kidney disease. He is on hemodialysis, 3 times a week. He is known to have pulmonary embolism ,d DVT and Port-A-Cath thrombosis. He is on long-term oral anticoagulation. He has a history of cardiac tamponade, pericardiotomy, cardiac arrest, compartment syndrome secondary to spontaneous bleed in the lower extremity, extensive fasciotomy requiring prolonged rehabilitation, and multiple other medical problems. Review of Systems Narrative: CONSTITUTIONAL: No fever or chills. EYES: No blurring of vision or other visual disturbances lately. ENT: No hoarseness of voice, auditory disturbances or sore throat. CARDIOVASCULAR: As mentioned above. RESPIRATORY: No significant cough. GASTROINTESTINAL: No hematemesis or melena. GENITOURINARY: Patient on hemodialysis INTEGUMENTARY: No skin rashes or history of skin cancer. NEURO: No transient ischemic attacks or amaurosis. PSYCHIATRIC: No history of psychosis or major depression. HEMATOLOGIC: History of DVT and pulm embolism. On long-term oral anticoagulation ENDOCRINE: History of diabetes and currently is on insulin MUSCULOSKELETAL: No recent joint pain or swelling. ALLERGY/IMMUNOLOGY: As mentioned above. Medications/Allergies Home Medications ?Medication ?Instructions ?Recorded ?Confirmed ?Last Taken ?Type diphenhydramine HCl 25 mg tablet 50 mg PO DAILY PRN Allergy Symptoms 05/02/23 02/22/25 12/11/24 07:00 History (Benadryl Allergy) insulin lispro 100 unit/mL See Rx Instructions .Route .COMPLEX 05/02/23 02/22/25 01/07/25 History subcutaneous pen (Humalog KwikPen (U-100) Insulin) nitroglycerin 0.4 mg sublingual 0.4 mg sublingual Q5M PRN Chest 08/27/23 02/22/25 02/22/25 08:00 Rx tablet (Nitrostat) Pain #25 tabs vit B,C-folic ac 800 mcg-zinc 12.5 1 tab PO BEDTIME 10/29/23 02/22/25 02/21/25 History mg-selen-D3 2,000 unit-vit E tablet (RenaPlex-D) tizanidine 2 mg tablet 2 mg PO BID PRN Muscle Spasm 03/24/24 02/22/25 02/20/25 History promethazine 25 mg tablet 25 mg PO Q6H PRN Nausea 04/21/24 02/22/25 02/20/25 History acetaminophen 500 mg tablet 1,000 mg PO QID PRN Pain 06/04/24 02/22/25 12/05/24 History (Tylenol Extra Strength) apixaban 2.5 mg tablet (Eliquis) 2.5 mg PO BID 12/08/24 02/22/25 02/21/25 History Held on 01/08/25. Instructions: Resume on 01/09/25. gabapentin 300 mg capsule 300 mg PO BID 12/08/24 02/22/25 01/07/25 History insulin degludec 200 unit/mL (3 40 unit SUBCUT QAM 12/08/24 02/22/25 02/20/25 History mL) subcutaneous pen (Tresiba FlexTouch U-200 insulin) levothyroxine 88 mcg tablet 88 mcg PO QAM 12/08/24 02/22/25 02/21/25 History ranolazine 1,000 mg 1,000 mg PO BID 12/08/24 02/22/25 02/21/25 History tablet,extended release,12 hr blood-glucose sensor (Dexcom G7 #9 ea 12/14/24 02/22/25 Unknown Rx Sensor device) semaglutide 2 mg/dose (8 mg/3 mL) 2 mg (0.75 mL) SUBCUT Q7D #9 mL 01/01/25 02/22/25 02/15/25 Rx subcutaneous pen injector (Ozempic) hydrocodone 7.5 mg-acetaminophen 1 tab PO Q6H PRN Pain 01/07/25 02/22/25 02/20/25 History 325 mg tablet bumetanide 2 mg tablet 2 mg PO DAILY 02/22/25 02/22/25 02/21/25 History sacubitril 24 mg-valsartan 26 mg 2 tab PO DAILY 02/22/25 02/22/25 02/21/25 History tablet (Entresto) Allergies Allergy/AdvReac Type Severity Reaction Status Date / Time Iodinated Contrast Media Allergy Severe ALGY-Difficulty Verified 02/09/25 14:20 Breathing iodine Allergy Severe ALGY-Difficulty Verified 02/09/25 14:20 Breathing metoclopramide (From Reglan) Allergy Severe ALGY-Difficulty Verified 02/09/25 14:20 Breathing nalbuphine (From Nubain) Allergy Severe ADR-Diarrhe Verified 02/09/25 14:20 a naproxen (From Naprosyn) Allergy Severe ADR-Vomitin Verified 02/09/25 14:20 g Sulfa (Sulfonamide Allergy Severe ALGY-Difficulty Verified 02/09/25 14:20 Antibiotics) Breathing ketorolac Allergy Intermediate ADR-Nausea Verified 02/09/25 14:20 ondansetron (From Zofran) Allergy Intermediate ADR-Abdominal Verified 02/09/25 14:20 Pain prochlorperazine (From Allergy Intermediate ADR-Irritab Verified 02/09/25 14:20 Compazine) le codeine AdvReac Severe ALGY-Anaphy Verified 02/09/25 14:20 laxis haloperidol (From Haldol) AdvReac Intermediate ADR-Irritab Verified 02/09/25 14:20 le PFSH Acute PFSH: Medical History Contrast media allergy Thoracic disc disease Non-pressure chronic ulcer of other part of left foot limited to breakdown of skin Bilateral pes planus Hammertoe of left foot Rupture of extensor tendon of foot Kidney failure DM2 (diabetes mellitus, type 2) ICD (implantable cardioverter-defibrillator) in place Atherosclerotic heart disease of telida coronary artery with other forms of angina pectoris hx of CAD with prior stenting of proximal LAD, LCx, RCA ESRD (end stage renal disease) Hypothyroidism Generalized anxiety disorder Major depressive disorder, recurrent severe without psychotic features Pericarditis Elevated troponin Essential hypertension Psychiatric care 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 mellitus CRF (chronic renal failure) Chronic right SI joint pain Chronic systolic heart failure UTI (urinary tract infection) Peripheral arterial disease PVD (peripheral vascular disease) Worsening angina Angina at rest Uremic encephalopathy D-dimer, elevated Acute on chronic congestive heart failure History of pulmonary embolism Acute kidney injury superimposed on CKD GERD (gastroesophageal reflux disease) Alcohol use disorder, moderate, in sustained remission DVT (deep venous thrombosis) (~03/2020) Proximal left subclavian, basilic and brachial veins, started eliquis this stay, felt present prior to admission Chronic kidney disease -baseline Cr appears to be around 1.5 Ischemic cardiomyopathy Onychodystrophy Chronic anticoagulation Eliquis Osteoarthritis of spine Hyperlipidemia Depression Anemia Foot drop, left H/O acute myocardial infarction Surgical History Peritoneal dialysis catheter in situ (06/15/21) History of appendectomy 1996 History of excision of mass 06/08/2019: Subcutaneous mass on back History of removal of Port-a-Cath Port-A-Cath in place H/O vasectomy Hx of cholecystectomy History of coronary artery stent placement 5x H/O skin graft History of inguinal hernia repair, bilateral 2000 H/O removal of testicle left H/O colonoscopy (11/14/20) 08/2015 H/O esophagogastroduodenoscopy (11/14/20) 08/2015 Family History Grandfather Cancer skin cancer Parkinson disease Brother Hypertension Father Heart disease Mother Hypertension Stroke Aneurysm Grandmother Aneurysm Other Crohn's disease Denies family history of Anesthesia complication Bleeding disorder Social History Smoking and tobacco/nicotine status: unknown if used tobacco/nicotine Second hand smoke exposure: No Alcohol intake: former Year of sobriety/quit date alcohol: 2015 Former alcohol use details: Only holidays - last use 05.19.2015 Substance/Drug Use: never Adopted: No Caregiver/support person: No Lives independently: Yes Household members: spouse Housing: Apartment Marital status: Number of children: 2 Number of grandchildren: 0 Highest education level completed: High School Graduate service: No Current occupational status: disabled Pets and animals: Yes Pets & animals: dog(s) Leisure activites: games and other Leisure activities details: watching TV Sexually active: Yes Do you think of yourself as: Straight/Heterosexual Current gender identity: Male Shannon/Rastafarian: Spiritism Special shannon needs: No Agree to transfusion: Yes Vitals/I&O/Wt Last Vital Signs Pulse 101 H 02/22/25 14:00 Resp 20 H 02/22/25 14:09 BP 165/96 02/22/25 13:45 Pulse Ox 89 L 02/22/25 14:09 O2 Del Method Room Air 02/22/25 14:46 Weight last 48 hrs Weight 205 lb Weight 205 lb Physical Exam Narrative: GENERAL: The patient is alert and oriented times three. Not in any acute distress. HEENT: No significant pallor, icterus or lymphadenopathy.Oral cavity: There are no mucous membrane lesions. NECK: Trachea appears to be central. No masses noted. No JVD or thyromegaly appreciated. RESPIRATORY: Chest is symmetrical. No intercostals muscle retraction or any accessory muscle activation. There is no chest wall tenderness. Breath sounds are heard bilaterally. No rales or rhonchi heard. No evidence of any consolidation. BREASTS: Deferred. HEART: The heart sounds are normal. No S3 or S4. Short systolic murmur at the lower sternal border. No diastolic murmurs. No pericardial rub ABDOMEN: No vessel pulsations or distention. No tenderness. No organomegaly appreciated. Bowel sounds are normally heard. : Deferred. RECTAL: Deferred. LYMPHATIC: No lymphadenopathy noted in the neck. EXTREMITIES: Extensive scarring in the left leg. Trace edema with no cyanosis MUSCULOSKELETAL: No acute joint deformities or swelling SKIN: There are no significant rashes or ecchymosis NEUROPSYCHIATRIC: The patient is alert and oriented x3. Appears to be in a good mood. No tremors or rigidity noted. Data 02/22/25 09:10 02/22/25 09:10 Other Labs: Laboratory Last Values WBC 8.24 10^3/uL (3.29-11.43) 02/22/25 09:10 RBC 3.61 10^6/uL (3.85-5.65) L 02/22/25 09:10 Hgb 11.70 g/dL (11.27-16.99) 02/22/25 09:10 Hct 34.1 % (37-53) L 02/22/25 09:10 MCV 94.5 fl (82-101) 02/22/25 09:10 MCH 32.4 pg (27-33) 02/22/25 09:10 MCHC 34.3 g/dL (30-55) 02/22/25 09:10 RDW 13.1 % (12.1-15.1) 02/22/25 09:10 Plt Count 337 10^3/cmm (157-399) 02/22/25 09:10 MPV 9.3 fL (7.4-10.4) 02/22/25 09:10 Neut % (Auto) 74.6 % 02/22/25 09:10 Lymph % (Auto) 14.7 % 02/22/25 09:10 [facility] % (Auto) 8.5 % 02/22/25 09:10 Eos % (Auto) 1.1 % 02/22/25 09:10 Baso % (Auto) 0.7 % 02/22/25 09:10 Neut # (Auto) 6.15 10^3/uL (1.8-7.7) 02/22/25 09:10 Lymph # (Auto) 1.2 10^3/uL (0.8-4.8) 02/22/25 09:10 [facility] # (Auto) 0.7 10^3/uL (0.2-0.9) 02/22/25 09:10 Eos # (Auto) 0.1 10^3/uL (0.0-0.8) 02/22/25 09:10 Baso # (Auto) 0.1 10^3/uL (0.0-0.1) 02/22/25 09:10 Nucleated RBC % (auto) 0 % 02/22/25 09:10 Nucleated RBCs # 0.0 /100WBC 02/22/25 09:10 Sodium 137 mmol/L (136-145) 02/22/25 09:10 Potassium 4.2 mmol/L (3.5-5.1) 02/22/25 09:10 Chloride 100 mmol/L (98-107) 02/22/25 09:10 Carbon Dioxide 22 mmol/L (22-29) 02/22/25 09:10 Anion Gap 19.2 (5-19) H 02/22/25 09:10 BUN 55 mg/dL (6-20) H 02/22/25 09:10 Creatinine 3.8 mg/dL (0.7-1.2) H 02/22/25 09:10 GFR Calculation 16.6 mL/min (90-130) L 02/22/25 09:10 Glucose 216 mg/dL (65-115) H 02/22/25 09:10 Calculated Osmolality 306 mOsm/kg (285-295) H 02/22/25 09:10 Calcium 9.0 mg/dL (8.5-10.5) 02/22/25 09:10 Total Bilirubin 0.5 mg/dL (0.15-1.2) 02/22/25 09:10 AST 12 U/L (0-40) 02/22/25 09:10 ALT 8 U/L (0-41) 02/22/25 09:10 Alkaline Phosphatase 92 U/L (40-130) 02/22/25 09:10 Troponin T Baseline 110 ng/L (0-15) H* 02/22/25 09:10 Troponin T 120 Minute 135 ng/L (0-15) H 02/22/25 11:05 Delta Troponin T 25 ABS# (0-10) H* 02/22/25 11:05 Troponin T Hi Sens 6Hr 172.7 ng/L (0-15) H 02/22/25 15:13 Troponin T Hi Sens 6Hr Delta 62.7 ng/L (0-12) H* 02/22/25 15:13 Total Protein 6.6 g/dL (6.6-8.7) 02/22/25 09:10 Albumin 3.6 g/dL (3.5-5.2) 02/22/25 09:10 Globulin 3.0 g/dL (1.3-4.6) 02/22/25 09:10 Urine Color Yellow (Yellow) 02/22/25 09:20 Urine Appearance Clear (CLEAR) 02/22/25 09:20 Urine pH 6 (5-7) 02/22/25 09:20 Ur Specific [place] 1.015 (1.005-1.030) 02/22/25 09:20 Urine Protein 2+ (Negative) H 02/22/25 09:20 Urine Glucose (UA) 2+ (Normal) H 02/22/25 09:20 Urine Ketones Negative (Negative) 02/22/25 09:20 Urine Blood Trace (Negative) H 02/22/25 09:20 Urine Nitrate Negative (Negative) 02/22/25 09:20 Urine Bilirubin Neg (Negative) 02/22/25 09:20 Urine Urobilinogen Norm mg/dL (Negative) 02/22/25 09:20 Ur Leukocyte Esterase Negative (Negative) 02/22/25 09:20 Urine RBC Rare /hpf (0-2) 02/22/25 09:20 Urine WBC Rare /hpf (0-5) 02/22/25 09:20 Ur Squamous Epith Cells None /hpf (0-5) 02/22/25 09:20 Amorphous Sediment Not Reportable 02/22/25 09:20 Urine Bacteria None /hpf (NONE) 02/22/25 09:20 Other data: EKG from today shows Sinus rhythm with poor R wave progression. Diffuse nonspecific ST-T changes in the anterolateral and inferior leads A&P Assessment and plan 1. Atherosclerotic heart disease of telida coronary artery with other forms of angina pectoris: Patient chest pain is somewhat atypical. The symptoms may assess for unstable angina. In view of his complicated diabetes, the chest symptoms may not be very reliable. 2. Wide-complex tachycardia: In view of the cardiomyopathy, to be appropriate to start him on amiodarone 400 mg p.o. now and twice daily 3. Elevated troponin: The elevated troponin T with a significant delta may suggest a non-ST elevation myocardial infarction. Because of the ICD discharge and tachyarrhythmia with history of renal disease, a type II MD also is a consideration. 4. Primary hypertension: The blood pressure is elevated, stage II hypertension. Antihypertensive medications need to be optimized 5. Implantable cardioverter-defibrillator (ICD) discharge: ICD interrogation report was reviewed. This possible that the patient may have atrial flutter with aberrant conduction wide-complex tachycardia. May need to consider reprogramming the device for a different VT detection algorithm 6. Hyperlipemia, mixed: May continue on the current management. 7. Type 2 diabetes mellitus with other circulatory complication, with long-term current use of insulin: Aggressive management of the diabetes would be appropriate. 8. Ischemic cardiomyopathy: The LV ejection fraction by echocardiogram in March of last year was 40%. Will do a repeat echocardiogram to reevaluate the LV function. 9. ESRD (end stage renal disease): Patient is on hemodialysis, 3 times a week. May continue the current schedule Plan: The Eliquis may be held at this point. Continue on IV heparin Also may start him on a beta-zaira namely Lopressor 25 mg p.o. twice daily Amiodarone 400 mg p.o. twice daily for the wide-complex tachycardia/atrial flutter Plavix 300 mg p.o. now followed by 75 mg p.o. daily May premedicate patient with prednisone 40 mg p.o. every 8hrs, before the angiogram Continue the aspirin and other current medications. An echocardiogram would be helpful to evaluate LV function and rule out any other pathology. Patient may require a cardiac catheterization to further evaluate his coronary status and decide on further manage. Because of the Eliquis and the renal failure, we may wait for 48 to 72 hours, before proceeding with the angiogram Patient on the patient's clinical progress on the results of the above, further recommendations will be made Thank you for the opportunity to evaluate this patient and make these recommendations PDMP PDMP Reviewed: Not Reviewed Coding Level of Care Code 89530 Diagnoses Atherosclerotic heart disease of telida coronary 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 Wide-complex tachycardia R00.0 Elevated troponin R79.89 Primary hypertension I10 Hypertension type: primary hypertension Implantable cardioverter-defibrillator (ICD) discharge Z45.02 Hyperlipemia, mixed E78.2 Type 2 diabetes mellitus with other circulatory complication, with long-term current use of insulin E11.59; Z79.4 Diabetes mellitus alf insulin use: with termite helper use Diabetes mellitus complication status: with circulatory complication Diabetes mellitus complication detail: with other circulatory complications Ischemic cardiomyopathy I25.5 ESRD (end stage renal disease) N18.6
[2025-02-22 16:21] LABS: Troponin 5 6HR 172.7 ng/L (0-15); Troponin 5 6HR Delta 62.7 ng/L (0-12)
--- NOTE | 2025-02-22 16:48 | ECG_ITS ---
[employer] Test Date: 2025-02-22 Pat Name: Rei Queen Department: Room: 111 Gender: Male Vp Of Digital Marketing: : 1970 Requested By: Timo Hart Order Number: [id number] Becky MD: Karen Choi M.D. Measurements Intervals [place] Rate: 81 P: 25 NV: 173 QRS: 14 QRSD: 117 T: 127 QT: 400 QTc: 465 Interpretive Statements SINUS RHYTHM ANTERIOR MYOCARDIAL INFARCTION , PROBABLY RECENT [40+ ms Q WAVE AND/OR ST/T ABNORMALITY IN V3/V4] Diffuse non specific ST T changes Compared to ECG 02/22/2025 12:23:48 T-wave abnormality no longer present Possible ischemia no longer present Myocardial infarct finding still present Electronically Signed On 02-22-2025 23:29:58 CDT by Karen Choi M.D. [email or web address] [id number]
[2025-02-22] MEDS: nitroglycerin drip 50 MG/250 ML PREMIX IV (17:18)
--- NOTE | 2025-02-22 17:55 | ECG_ITS ---
[employer] Test Date: 2025-02-22 Pat Name: Rei Queen Department: Room: 111 Gender: Male Administrative Support Specialist: : 1970 Requested By: Jose Hart Order Number: [id number] Pena MD: Karen Choi M.D. Measurements Intervals [place] Rate: 140 P: 0 MS: 0 QRS: 54 QRSD: 118 T: 127 QT: 323 QTc: 494 Interpretive Statements ATRIAL FIBRILLATION WITH RAPID VENTRICULAR RESPONSE WITH ABERRANT CONDUCTION OR VENTRICULAR PREMATURE COMPLEXES POSSIBLE ANTERIOR MYOCARDIAL INFARCTION , PROBABLY OLD [30 ms Q WAVE IN V3/V4, OR R < 0.2 mV IN V4] ABNORMAL RHYTHM ECG Compared to ECG 02/22/2025 16:48:51 Ventricular premature complex(es) now present Aberrant conduction of supraventricular beat(s) now present Sinus rhythm no longer present Myocardial infarct finding still present Heavy baseline artifacts; Need to repeat the study. Electronically Signed On 02-22-2025 23:24:36 CDT by Karen Choi M.D. [id number]
--- NOTE | 2025-02-22 18:09 | PC.NURSE ---
Dr Hightower made aware of patient's chest pain. He ordered nitro gtt and 2mg morphine. While I was giving his roommate his medications, I heard Rei's alarm going off and I looked at it and the patient's heart rate waa in the 160s. I ordered and performed a bedside EKG which showed patient now in afib rvr. Dr Hightower notified and wrote to give 5mg ivp of metoprolol and that he would be to see the patient soon.
[2025-02-22] MEDS: dilTIAZem 5 mg/mL SDV 5 mL 10 MG IVP (18:31)
[2025-02-22] MEDS: metoprolol tartrate 1 mg/1 mL SDV 5 mL 5 MG IVP (18:31)
[2025-02-22] MEDS: AMIODARONE HCL/D5W 900 MG/500 ML BAG 33.33 MG IV ×2 (18:51→19:23)
[2025-02-22] MEDS: bumetanide 0.25 mg/mL SDV 10 mL 2 MG IVP (18:51)
[2025-02-22] MEDS: amiodarone 150 MG/100 ML PREMIX 400 MG IV (18:51)
--- NOTE | 2025-02-22 19:03 | PM.HP ---
Providers/Chief Complaint Admitting Physician: Jose Hightower MD Primary Care Provider: Dez Evans MD Chief Complaint: chest pain History of Present Illness Rei Queen II is a 54 year old male came in with weakness starting on Saturday after dialysis. He states that it became worse until today and he felt heavy in his chest and then his defibrillator went off. He denies it his defibrillator has ever gone off before that he has ever previously been shocked. He states that he is on apixaban at baseline due to clots in legs and clots in the lungs. Patient denies past history of atrial fibrillation. He reports some palpitations at home but not as bad as he is having currently. He reports chest heaviness at home but now he has 7-8/10 chest discomfort initially relieved by nitroglycerin drip until he went into A-fib. Patient states he was obese at age 18 and max weight 264 pounds down to 200 now 205. He has been on atorvastatin for hyperlipidemia but not ezetimibe. Patient states he has had stents in the heart placed at [place] here in [facility] in [place] he thinks he has had 5 total but his thinks he has had 9. Patient denies missing any medications. 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 Review of Systems Narrative: General No fevers chills Cardiovascular positive for chest pain and dyspnea on exertion this weekend Respiratory no cough he thinks he makes a normal amount of urine GI denies vomiting constipation positive for nausea currently positive for diarrhea last night Medications/Allergies Home Medications ?Medication ?Instructions ?Recorded ?Confirmed ?Last Taken ?Type diphenhydramine HCl 25 mg tablet 50 mg PO DAILY PRN Allergy Symptoms 05/02/23 02/22/25 12/11/24 07:00 History (Benadryl Allergy) insulin lispro 100 unit/mL See Rx Instructions .Route .COMPLEX 05/02/23 02/22/25 01/07/25 History subcutaneous pen (Humalog KwikPen (U-100) Insulin) nitroglycerin 0.4 mg sublingual 0.4 mg sublingual Q5M PRN Chest 08/27/23 02/22/25 02/22/25 08:00 Rx tablet (Nitrostat) Pain #25 tabs vit B,C-folic ac 800 mcg-zinc 12.5 1 tab PO BEDTIME 10/29/23 02/22/25 02/21/25 History mg-selen-D3 2,000 unit-vit E tablet (RenaPlex-D) tizanidine 2 mg tablet 2 mg PO BID PRN Muscle Spasm 03/24/24 02/22/25 02/20/25 History promethazine 25 mg tablet 25 mg PO Q6H PRN Nausea 04/21/24 02/22/25 02/20/25 History acetaminophen 500 mg tablet 1,000 mg PO QID PRN Pain 06/04/24 02/22/25 12/05/24 History (Tylenol Extra Strength) apixaban 2.5 mg tablet (Eliquis) 2.5 mg PO BID 12/08/24 02/22/25 02/21/25 History Held on 01/08/25. Instructions: Resume on 01/09/25. gabapentin 300 mg capsule 300 mg PO BID 12/08/24 02/22/25 01/07/25 History insulin degludec 200 unit/mL (3 40 unit SUBCUT QAM 12/08/24 02/22/25 02/20/25 History mL) subcutaneous pen (Tresiba FlexTouch U-200 insulin) levothyroxine 88 mcg tablet 88 mcg PO QAM 12/08/24 02/22/25 02/21/25 History ranolazine 1,000 mg 1,000 mg PO BID 12/08/24 02/22/25 02/21/25 History tablet,extended release,12 hr blood-glucose sensor ([employer] G7 #9 ea 12/14/24 02/22/25 Unknown Rx Sensor device) semaglutide 2 mg/dose (8 mg/3 mL) 2 mg (0.75 mL) SUBCUT Q7D #9 mL 01/01/25 02/22/25 02/15/25 Rx subcutaneous pen injector (Ozempic) hydrocodone 7.5 mg-acetaminophen 1 tab PO Q6H PRN Pain 01/07/25 02/22/25 02/20/25 History 325 mg tablet bumetanide 2 mg tablet 2 mg PO DAILY 02/22/25 02/22/25 02/21/25 History sacubitril 24 mg-valsartan 26 mg 2 tab PO DAILY 02/22/25 02/22/25 02/21/25 History tablet (Entresto) Allergies Allergy/AdvReac Type Severity Reaction Status Date / Time Iodinated Contrast Media Allergy Severe ALGY-Difficulty Verified 02/09/25 14:20 Breathing iodine Allergy Severe ALGY-Difficulty Verified 02/09/25 14:20 Breathing metoclopramide (From Reglan) Allergy Severe ALGY-Difficulty Verified 02/09/25 14:20 Breathing nalbuphine (From Nubain) Allergy Severe ADR-Diarrhe Verified 02/09/25 14:20 a naproxen (From Naprosyn) Allergy Severe ADR-Vomitin Verified 02/09/25 14:20 g Sulfa (Sulfonamide Allergy Severe ALGY-Difficulty Verified 02/09/25 14:20 Antibiotics) Breathing ketorolac Allergy Intermediate ADR-Nausea Verified 02/09/25 14:20 ondansetron (From Zofran) Allergy Intermediate ADR-Abdominal Verified 02/09/25 14:20 Pain prochlorperazine (From Allergy Intermediate ADR-Irritab Verified 02/09/25 14:20 Compazine) le codeine AdvReac Severe ALGY-Anaphy Verified 02/09/25 14:20 laxis haloperidol (From Haldol) AdvReac Intermediate ADR-Irritab Verified 02/09/25 14:20 le PFSH Acute PFSH: Medical History (Updated 02/22/25 @ 19:14 by Jose Hightower MD) Ischemic cardiomyopathy Contrast media allergy Thoracic disc disease Non-pressure chronic ulcer of other part of left foot limited to breakdown of skin Bilateral pes planus Hammertoe of left foot Rupture of extensor tendon of foot Kidney failure Type 2 diabetes mellitus with other circulatory complication, 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 hx of CAD with prior stenting of proximal LAD, LCx, RCA ESRD (end stage renal disease) Hypothyroidism Generalized anxiety disorder Major depressive disorder, recurrent severe without psychotic features Pericarditis Elevated troponin Essential hypertension Psychiatric care 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 mellitus CRF (chronic renal failure) Chronic right SI joint pain Chronic systolic heart failure UTI (urinary tract infection) Peripheral arterial disease PVD (peripheral vascular disease) Worsening angina Angina at rest Uremic encephalopathy D-dimer, elevated Acute on chronic congestive heart failure History of pulmonary embolism Acute kidney injury superimposed on CKD GERD (gastroesophageal reflux disease) Alcohol use disorder, moderate, in sustained remission DVT (deep venous thrombosis) (~03/2020) Proximal left subclavian, basilic and brachial veins, started eliquis this stay, felt present prior to admission Chronic kidney disease -baseline Cr appears to be around 1.5 Onychodystrophy Chronic anticoagulation Eliquis Osteoarthritis of spine Hyperlipidemia Depression Anemia Foot drop, left H/O acute myocardial infarction Surgical History Peritoneal dialysis catheter in situ (06/15/21) History of appendectomy 1995 History of excision of mass 06/08/2019: Subcutaneous mass on back History of removal of Port-a-Cath Port-A-Cath in place H/O vasectomy Hx of cholecystectomy History of coronary artery stent placement 5x H/O skin graft History of inguinal hernia repair, bilateral 2000 H/O removal of testicle left H/O colonoscopy (11/14/20) 08/2015 H/O esophagogastroduodenoscopy (11/14/20) 08/2015 Family History Grandfather Cancer skin cancer Parkinson disease Brother Hypertension Father Heart disease Mother Hypertension Stroke Aneurysm Grandmother Aneurysm Other Crohn's disease Denies family history of Anesthesia complication Bleeding disorder Social History (Updated 02/22/25 @ 19:12 by Jose Hightower MD) Smoking and tobacco/nicotine status: never used tobacco/nicotine Second hand smoke exposure: No Alcohol intake: former Year of sobriety/quit date alcohol: 2015 Former alcohol use details: Only holidays - last use 05.19.2015 Substance/Drug Use: former Date of last use: Young adult Former substance use details: Remote history of weed and cocaine brief Additional social history: Patient wants full CODE STATUS as discussed today with Jose Hightower MD on 02/22/2025 his next of kin is his Chantale and if she is unavailable then daughter Inge Adopted: No Caregiver/support person: No Lives independently: Yes Household members: spouse Housing: Apartment Marital status: Number of children: 2 Number of grandchildren: 0 Highest education level completed: High School Graduate service: No Current occupational status: disabled 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 Pets and animals: Yes Pets & animals: dog(s) Leisure activites: games and other Leisure activities details: watching TV Sexually active: Yes Do you think of yourself as: Straight/Heterosexual Current gender identity: Male Shannon/Orthodox: Jehovah'S Witness Special shannon needs: No Agree to transfusion: Yes Vitals/I&O/Wt Last Vital Signs Pulse 101 H 02/22/25 14:00 Resp 17 02/22/25 17:18 BP 165/96 02/22/25 13:45 Pulse Ox 96 02/22/25 17:18 O2 Del Method Room Air 02/22/25 14:46 02/22/25 02/22/25 02/22/25 06:59 14:59 22:59 Intake Total 240 / 240 Balance 240 / 240 Weight last 48 hrs Weight 92.986 kg Weight 92.986 kg Physical Exam Narrative: General Well-developed male obese mild discomfort CV tachycardic irregular rhythm Lungs crackles in both bases partially clear with deep breaths but not completely Abdomen positive bowel tones soft nontender Calves 1+ to 2 bilateral pretibial edema Skin warm and dry Data 02/22/25 09:10 02/22/25 09:10 A&P Assessment and plan 1. Acute coronary syndrome with high troponin: Patient was started on heparin drip and nitro drip he had hypotension with diltiazem 10 mg plus metoprolol 5 mg IV push so he switched to amiodarone drip for A-fib rapid ventricular response. 2. Atrial fibrillation with rapid ventricular response: Rate control and potential cardioversion with amiodarone as above 3. Ischemic cardiomyopathy: EKG shows A-fib RVR. Last echocardiogram March 2024 showed mildly increased LV ventricular size with EF 40% and mid to distal anterior wall and apical hypokinesis with grade 1/4 diastolic dysfunction moderately increased atrial size and severe aortic calcification with mild stenosis 4. Atherosclerotic heart disease of [place] coronary artery with other forms of angina pectoris: History of multiple stents 5. ESRD (end stage renal disease): I notified Dr. Gibson regarding need for Saturday dialysis not currently emergent 6. Type 2 diabetes mellitus with other circulatory complication, with long-term current use of insulin: Continue with insulin 40 units Tresiba or equivalent every morning plus sliding scale insulin low scale PDMP PDMP Reviewed: Not Reviewed Attestations Medical Necessity Statement*: Patient is admitted to hospital for acute coronary syndrome and anticipate selective coronary angiogram and possible PCI tomorrow or the next day Coding Level of Care Code 11480 Diagnoses Acute coronary syndrome with high troponin I24.9 Atrial fibrillation with rapid ventricular response I48.91 Ischemic cardiomyopathy I25.5 Atherosclerotic heart disease of [place] coronary 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 ESRD (end stage renal disease) N18.6 Type 2 diabetes mellitus with other circulatory complication, with long-term current use of insulin E11.59; Z79.4 Diabetes mellitus complication detail: with other circulatory complications Diabetes mellitus complication status: with circulatory complication Diabetes mellitus care home insulin use: with care home use Time Spent (min) 70
[2025-02-22] MEDS: b-complex-vitamin c Tablet 1 EACH PO (20:36)
[2025-02-22] MEDS: heparin drip 25,000 UNIT/500 ML PREMIX 48.35 UNIT IV (22:16)
[2025-02-22] MEDS: heparin 5,000 unit/mL INJ 1 mL IVP (22:17)
[2025-02-23] VITALS (37 sets, daily range): BP systolic 87–150; BP diastolic 37–73; PULSE 51–78; RESP 12–23; TEMP 36.8–37; O2SAT 90–99
[2025-02-23 04:43] LABS: Magnesium 1.9 mg/dL (1.7-2.3)
[2025-02-23 04:44] LABS: Anion Gap 17.4 (5-19); Blood Urea Nitrogen 60 mg/dL (6-20); Calcium 8.8 mg/dL (8.5-10.5); Carbon Dioxide 25 mmol/L (22-29); Chloride 100 mmol/L (98-107); Creatinine Clr Calc Pharmacy 21.4496; Glucose 154 mg/dL (65-115); Osmolality Calculated 306 mOsm/kg (285-295); Potassium 4.4 mmol/L (3.5-5.1); Sodium 138 mmol/L (136-145)
[2025-02-23 05:15] LABS: Partial Thromboplastin Time 169.4 SECONDS (23.9-36.7)
[2025-02-23 05:16] LABS: Troponin T (5th) Once 338 ng/L (0-15)
[2025-02-23] MEDS: insulin glargine 100 units/1 mL 40 UNIT SUBCUT (06:39)
[2025-02-23] MEDS: morphine 4 mg/mL SDV 1 mL IVP ×4 (07:08→22:23)
--- NOTE | 2025-02-23 08:06 | PC.NURSE ---
Patient stated that he would like to continue his home medication trazadone and benadryl. Dr Cerrato notified and home medication restarted. Patient converted to sinus rhythm at 21:45. Hr was in the 50's and bp was soft. Dr Cerrato notified and Nitro gtt and amio gtt paused. BP was still running low. notified and new order for 1L bolus ordered. pTT came back elevated at 169. notified and heparin gtt was paused and new ptt order placed for 0800. Patient BP continued to be soft, Dr notified aand no new orders placed at this time.
[2025-02-23 08:08] LABS: Partial Thromboplastin Time 46.7 SECONDS (23.9-36.7)
--- NOTE | 2025-02-23 09:18 | P.PN_ITS ---
<Statement entered by Garrison Mckinney M.D - 02/25/25 11:52> Patient was cared for in conjunction with an advanced practice practitioner.? I reviewed the chart and all pertinent data including imaging, telemetry, and laboratory results.? I discussed the patient in detail with the advanced practice practitioner.? Please see?their note for progress note, testing results and agreed upon plan of care for the patient. Subjective 2 Subjective: Assumed care from Dr Choi. He reports active chest pain, present in the left chest, shoulder, scapula and left jaw, presently 11/26, morphine improves the pain but it does not completely resolve. Nitroglycerin infusion has been given, is off now as blood pressure is soft. The chest pain is worse with exertion accompanied by shortness of breath with exertion, nausea is present intermittently. He has felt fatigued over the last week, worsening quickly. Vitals/I&O/Wt Last Vital Signs Temp 98.2 F 02/23/25 07:25 Pulse 56 L 02/23/25 07:25 Resp 12 02/23/25 07:25 BP 108/46 02/23/25 07:25 Pulse Ox 97 02/23/25 07:25 O2 Del Method Nasal Cannula 02/23/25 04:00 02/22/25 02/23/25 02/23/25 22:59 06:59 14:59 Intake Total 657.776 / 2451.327 1793.551 / 2451.327 0 / 0 Output Total 250 / 250 Balance 407.776 / 2201.327 1793.551 / 2201.327 0 / 0 Weight last 48 hrs Weight 213 lb 10.047 oz Weight 213 lb 10.047 oz Weight 212 lb 1.355 oz Weight 205 lb Weight 205 lb Physical Exam 2 Const: COMMON NORMALS: no acute distress and patient oriented x3 GENERAL APPEARANCE: cooperative and comfortable ORIENTATION/CONSCIOUSNESS: Yes awake, Yes oriented to person, Yes oriented to place and Yes oriented to time Chest: COMMONS NORMALS: normal inspection of the chest and normal palpation of entire chest wall CHEST: Yes Symmetrical chest wall rise Resp: COMMON NORMALS: normal respiratory effort, No retractions, No use of accessory muscles and clear to auscultation bilaterally EFFORT & INSPECTION: Yes symmetric chest movement AUSCULTATION: clear to auscultation bilaterally Cardio: COMMON NORMALS: regular rate, regular rhythm, S1 normal heart sound present, S2 normal heart sound present, No gallops present (Cardio), No clicks present (Cardio), No murmurs present (Cardio) and No rub (Cardio) RATE: r egular rate RHYTHM: regular rhythm HEART SOUNDS: S1 normal heart sound present and S2 normal heart sound present PERIPHERAL PULSES: radial pulses present Extremity: COMMON NORMALS: no pedal edema Neuro: COMMON NORMALS: patient oriented x3 and moves all extremities S ENSORIUM/ORIENTATION: Yes oriented to person, Yes oriented to place and Yes oriented to time Data 02/22/25 09:10 02/23/25 04:00 A&P Assessment and plan 1. Wide-complex tachycardia: 2. Implantable cardioverter-defibrillator (ICD) discharge: 3. Chest pain: 4. Elevated troponin: 5. Ischemic cardiomyopathy: Plan: He has a higher elevation in troponin than usual for him, series was 110->135->172. Random trop this morning 338. Due to the arrhythmia, typical active chest pain and troponin elevation, he requires coronary angiogram for further evaluation of cardiac status. He had balloon angioplasty of circumflex and RCA in-stent restenosis in March of last year. His last dose of Eliquis was Saturday night. He anticipates getting HD today. Heparin infusing. Due to contrast allergy he requires prednisone and benadryl prophylaxis. PDMP PDMP Reviewed: Not Reviewed Attestations 2 Medical Necessity Statement*: elevated trop, active chest pain Coding Level of Care Code Acute Code for [facility] Fwd Diagnoses Wide-complex tachycardia R00.0 Implantable cardioverter-defibrillator (ICD) discharge Z45.02 Chest pain R07.9 Elevated troponin R79.89 Ischemic cardiomyopathy I25.5
--- NOTE | 2025-02-23 09:45 | PC.CHAP ---
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 [] Patient/Family/Request visit [] Outpatient visit [] Follow-up visit [] Physician referral [] Code/Alert [x] Routine visit [] Staff referral [] Actively dying [] Patient sleeping [] Family support [] [] Out of room [] Palliative care [] [] Receiving care in room [] Pre-surgical visit [] Trauma [] Long length of stay [] ICU visit [] Other: Relational/Emotional Strength [x] Patient feels connected with others/family/visitors/staff [] Distress [] Loneliness/isolation [] Abandonment Spirituality of Patient [x] Person of Shannon [] Attends Denominational of their Shannon [x] Believes in Prayer [] Reads Bible or Uatsdin materials [] There are Spiritual issues to be addressed [place] Interventions [x] Prayer [x] Active listening [x] Non-anxious presence [x] Spiritual/emotional support [] Crisis/trauma care [] Spiritual counseling [] Bereavement support [] Provided bereavement packet [] Provided Bible/devotional materials [] Provided toy/stuffed animal, coloring book to patient or family member [] Provided Communion [] Anointing/[place] [] Salvation [x] Completed spiritual assessment [] Other: Impact on Illness or Injury [] Angry [] Fearful [] Anxious [] Often cries [] Exhaustion [] Unable to work [] Unable to attend religious [] Unable to walk/stand [] Unable to read [] Unable to drive [] Unable to eat/drink [] Unable to sleep [] Unable to be with family [] Patient intubated [] Other: Summary Time spent with patient 5 min
[2025-02-23] MEDS: FUROsemide 10 mg/mL SDV 10mL 80 MG IVP (11:15)
--- NOTE | 2025-02-23 11:17 | PM.CONSULT ---
Providers/Reason For Consult Consulting Physician/Specialty*: kommana/Nephrology Reason for Consult*: ESRD Attending Physician: Jose Hightower MD Primary Care Provider: Dez Evans MD History of Present Illness History of Present Illness patient is a 54-year-old male with past medical history significant for end-stage renal disease on dialysis, coronary artery disease with multiple PCI's in the past, cardiomyopathy CHF, who presented to the hospital with a complaint of chest pain. The patient underwent cardiac cath due to NSTEMI status post PCI with 1 stent placed. Patient was also found to be in A-fib with RVR and underwent cardioversion and received amiodarone. Patient currently receiving dialysis. Labs reviewed. Review of Systems Narrative: negative Medications/Allergies Home Medications ?Medication ?Instructions ?Recorded ?Confirmed ?Last Taken ?Type diphenhydramine HCl 25 mg tablet 50 mg PO DAILY PRN Allergy Symptoms 05/02/23 02/22/25 12/11/24 07:00 History (Benadryl Allergy) insulin lispro 100 unit/mL See Rx Instructions .Route .COMPLEX 05/02/23 02/22/25 01/07/25 History subcutaneous pen (Humalog KwikPen (U-100) Insulin) nitroglycerin 0.4 mg sublingual 0.4 mg sublingual Q5M PRN Chest 08/27/23 02/22/25 02/22/25 08:00 Rx tablet (Nitrostat) Pain #25 tabs vit B,C-folic ac 800 mcg-zinc 12.5 1 tab PO BEDTIME 10/29/23 02/22/25 02/21/25 History mg-selen-D3 2,000 unit-vit E tablet (RenaPlex-D) tizanidine 2 mg tablet 2 mg PO BID PRN Muscle Spasm 03/24/24 02/22/25 02/20/25 History promethazine 25 mg tablet 25 mg PO Q6H PRN Nausea 04/21/24 02/22/25 02/20/25 History acetaminophen 500 mg tablet 1,000 mg PO QID PRN Pain 06/04/24 02/22/25 12/05/24 History (Tylenol Extra Strength) apixaban 2.5 mg tablet (Eliquis) 2.5 mg PO BID 12/08/24 02/22/25 02/21/25 History Held on 01/08/25. Instructions: Resume on 01/09/25. gabapentin 300 mg capsule 300 mg PO BID 12/08/24 02/22/25 01/07/25 History insulin degludec 200 unit/mL (3 40 unit SUBCUT QAM 12/08/24 02/22/25 02/20/25 History mL) subcutaneous pen (Tresiba FlexTouch U-200 insulin) levothyroxine 88 mcg tablet 88 mcg PO QAM 12/08/24 02/22/25 02/21/25 History ranolazine 1,000 mg 1,000 mg PO BID 12/08/24 02/22/25 02/21/25 History tablet,extended release,12 hr blood-glucose sensor (SMCpros G7 #9 ea 12/14/24 02/22/25 Unknown Rx Sensor device) semaglutide 2 mg/dose (8 mg/3 mL) 2 mg (0.75 mL) SUBCUT Q7D #9 mL 01/01/25 02/22/25 02/15/25 Rx subcutaneous pen injector (Ozempic) hydrocodone 7.5 mg-acetaminophen 1 tab PO Q6H PRN Pain 01/07/25 02/22/25 02/20/25 History 325 mg tablet bumetanide 2 mg tablet 2 mg PO DAILY 02/22/25 02/22/25 02/21/25 History sacubitril 24 mg-valsartan 26 mg 2 tab PO DAILY 02/22/25 02/22/25 02/21/25 History tablet (Entresto) trazodone 100 mg tablet 300 mg PO PRN insomnia 02/22/25 02/22/25 02/20/25 21:00 History Allergies Allergy/AdvReac Type Severity Reaction Status Date / Time Iodinated Contrast Media Allergy Severe ALGY-Difficulty Verified 02/09/25 14:20 Breathing iodine Allergy Severe ALGY-Difficulty Verified 02/09/25 14:20 Breathing metoclopramide (From Reglan) Allergy Severe ALGY-Difficulty Verified 02/09/25 14:20 Breathing nalbuphine (From Nubain) Allergy Severe ADR-Diarrhe Verified 02/09/25 14:20 a naproxen (From Naprosyn) Allergy Severe ADR-Vomitin Verified 02/09/25 14:20 g Sulfa (Sulfonamide Allergy Severe ALGY-Difficulty Verified 02/09/25 14:20 Antibiotics) Breathing ketorolac Allergy Intermediate ADR-Nausea Verified 02/09/25 14:20 ondansetron (From Zofran) Allergy Intermediate ADR-Abdominal Verified 02/09/25 14:20 Pain prochlorperazine (From Allergy Intermediate ADR-Irritab Verified 02/09/25 14:20 Compazine) le codeine AdvReac Severe ALGY-Anaphy Verified 02/09/25 14:20 laxis haloperidol (From Haldol) AdvReac Intermediate ADR-Irritab Verified 02/09/25 14:20 le Current Medications Generic Name Dose Route Start Last Admin Trade Name Freq PRN Reason Stop Dose Admin Amiodarone HCl 400 mg 02/23/25 05:00 02/23/25 06:38 Amiodarone 200 Mg Tablet PO 400 mg BID RANDY Administration Atorvastatin Calcium 80 mg 02/22/25 19:10 02/22/25 20:35 Atorvastatin 40 Mg Tablet PO 80 mg BEDTIME RANDY Administration Bumetanide 2 mg 02/23/25 05:00 02/23/25 06:26 Bumetanide 1 Mg Tablet PO Not Given DAILY RANDY Clopidogrel Bisulfate 75 mg 02/23/25 05:00 02/23/25 05:47 Clopidogrel 75 Mg Tablet PO 75 mg DAILY RANDY Administration Diphenhydramine HCl 50 mg 02/22/25 22:36 02/22/25 23:55 Diphenhydramine 50 Mg Capsule PO 50 mg Q6H PRN Administration ALLERGIES Gabapentin 300 mg 02/22/25 19:00 02/23/25 05:47 Gabapentin 300 Mg Capsule PO 300 mg BID RANDY Administration Heparin Sodium (Porcine) 0 unit 02/22/25 19:02 02/22/25 22:17 Heparin 5,000 Unit/Ml Inj 1 Ml IVP 4,700 unit PRN PRN Administration Heparin Weight Based Protocol -Subsequent Bolus Protocol Nitroglycerin/Dextrose 50 mg in 250 mls @ 0 mls/hr 02/22/25 17:00 02/23/25 01:57 Nitroglycerin Drip IV 0 mcg/min .Q0M RANDY 0 mls/hr Protocol Titration Per Protocol AMIODARONE HCL/D5W 900 mg in 500 mls @ 0 mls/hr 02/22/25 18:38 02/23/25 02:48 Amiodarone 900 Mg/500 Ml-D5w IV 0 mg/min .Q0M RANDY 0 mls/hr Protocol Titration Per Protocol Heparin Sodium/Sodium Chloride 25,000 unit in 500 mls @ 22.317 mls/hr 02/22/25 19:15 02/23/25 08:26 Heparin Drip IV 26 unit/kg/hr CONT RANDY 48.35 mls/hr Protocol Titration 12 UNIT/KG/HR Insulin Glargine 40 unit 02/23/25 05:00 02/23/25 06:39 Insulin Glargine 100 Units/1 Ml SUBCUT 40 unit DAILY RANDY Administration Insulin Human Lispro 0 unit 02/22/25 21:00 02/22/25 22:15 Insulin Lispro 100 Unit/1 Ml SUBCUT 6 unit WM&BEDTIME RANDY Administration Protocol Levothyroxine Sodium 88 mcg 02/23/25 05:00 02/23/25 05:47 Levothyroxine 88 Mcg Tablet PO 88 mcg QAM RANDY Administration Metoprolol Tartrate 25 mg 02/22/25 17:20 02/23/25 07:07 Metoprolol Tartrate 25 Mg Tablet PO Not Given BID@0900,2100 RANDY Morphine Sulfate 4 mg 02/22/25 18:54 02/23/25 07:08 Morphine 4 Mg/Ml Sdv 1 Ml IVP 4 mg Q4H PRN Administration SEVERE PAIN Multivitamins 1 each 02/22/25 21:00 02/22/25 20:36 Q-Zdllcni-Cuuaoon C Tablet PO 1 each BEDTIME RANDY Administration Pantoprazole Sodium 40 mg 02/22/25 18:54 02/23/25 05:[address] 40 Mg Tablet PO 40 mg DAILY RANDY Administration Trazodone HCl 300 mg 02/22/25 22:38 02/22/25 23:55 Trazodone 150 Mg Tablet PO 300 mg BEDTIME PRN Administration INSOMNIA PFSH Acute PFSH: Medical History (Updated 02/23/25 @ 12:42 by MELISSA [place]) Ischemic cardiomyopathy Contrast media allergy Thoracic disc disease Non-pressure chronic ulcer of other part of left foot limited to breakdown of skin Bilateral pes planus Hammertoe of left foot Rupture of extensor tendon of foot Kidney failure Type 2 diabetes mellitus with other circulatory complication, 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 Atherosclerotic heart disease of false pass coronary artery with other forms of angina pectoris hx of CAD with prior stenting of proximal LAD, LCx, RCA ESRD (end stage renal disease) Hypothyroidism Generalized anxiety disorder Major depressive disorder, recurrent severe without psychotic features Pericarditis Elevated troponin Essential hypertension Psychiatric care 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 mellitus CRF (chronic renal failure) Chronic right SI joint pain Chronic systolic heart failure UTI (urinary tract infection) Peripheral arterial disease PVD (peripheral vascular disease) Worsening angina Angina at rest Uremic encephalopathy D-dimer, elevated Acute on chronic congestive heart failure History of pulmonary embolism Acute kidney injury superimposed on CKD GERD (gastroesophageal reflux disease) Alcohol use disorder, moderate, in sustained remission DVT (deep venous thrombosis) (~03/2020) Proximal left subclavian, basilic and brachial veins, started eliquis this stay, felt present prior to admission Chronic kidney disease -baseline Cr appears to be around 1.5 Onychodystrophy Chronic anticoagulation Eliquis Osteoarthritis of spine Hyperlipidemia Depression Anemia Foot drop, left H/O acute myocardial infarction Surgical History Peritoneal dialysis catheter in situ (06/15/21) History of appendectomy 1995 History of excision of mass 06/08/2019: Subcutaneous mass on back History of removal of Port-a-Cath Port-A-Cath in place H/O vasectomy Hx of cholecystectomy History of coronary artery stent placement 5x H/O skin graft History of inguinal hernia repair, bilateral 2000 H/O removal of testicle left H/O colonoscopy (11/14/20) 08/2015 H/O esophagogastroduodenoscopy (11/14/20) 08/2015 Family History Grandfather Cancer skin cancer Parkinson disease Brother Hypertension Father Heart disease Mother Hypertension Stroke Aneurysm Grandmother Aneurysm Other Crohn's disease Denies family history of Anesthesia complication Bleeding disorder Social History (Updated 02/22/25 @ 19:12 by Jose Hightower MD) Smoking and tobacco/nicotine status: never used tobacco/nicotine Second hand smoke exposure: No Alcohol intake: former Year of sobriety/quit date alcohol: 2016 Former alcohol use details: Only holidays - last use 05.19.2015 Substance/Drug Use: former Date of last use: Young adult Former substance use details: Remote history of weed and cocaine brief Additional social history: Patient wants full CODE STATUS as discussed today with Jose Hightower MD on 02/22/2025 his next of kin is his Chantale and if she is unavailable then daughter Inge Adopted: No Caregiver/support person: No Lives independently: Yes Household members: spouse Housing: Apartment Marital status: Number of children: 2 Number of grandchildren: 0 Highest education level completed: High School Graduate service: No Current occupational status: disabled 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 Pets and animals: Yes Pets & animals: dog(s) Leisure activites: games and other Leisure activities details: watching TV Sexually active: Yes Do you think of yourself as: Straight/Heterosexual Current gender identity: Male Shannon/Nondenominational: Sikh Special shannon needs: No Agree to transfusion: Yes Vitals/I&O/Wt Last Vital Signs Temp 98.2 F 02/23/25 07:25 Pulse 56 L 02/23/25 07:25 Resp 12 02/23/25 07:25 BP 108/46 02/23/25 07:25 Pulse Ox 97 02/23/25 07:25 O2 Del Method Nasal Cannula 02/23/25 04:00 02/22/25 02/23/25 02/23/25 22:59 06:59 14:59 Intake Total 657.776 / 685.939 3640.551 / 2451.327 0 / 0 Output Total 250 / 250 Balance 407.776 / 360.136 8576.551 / 2201.327 0 / 0 Weight last 48 hrs Weight 96.9 kg Weight 96.9 kg Weight 96.2 kg Weight 92.986 kg Weight 92.986 kg Physical Exam Narrative: awak , aelrt PEERLA NO JVD S1S2 RRR per report Lungs clear karissa Abd soft , non tender no edema Data 02/22/25 09:10 02/23/25 04:00 A&P Assessment and plan 1. Non-ST elevation (NSTEMI) myocardial infarction: 1. End-stage renal disease: On MWF schedule, hemodialysis today, patient status post cardiac catheter, may repeat HD tomorrow 2. Ischemic cardiomyopathy with prior multiple stents. 3. Hypertension, blood pressure controlled 4. Anemia: Hemoglobin at goal, monitor 5. A-fib with RVR, on presentation, status post amiodarone and cardioversion Patient evaluated using audiovisual cart. Time spent 40 minutes 2. ESRD (end stage renal disease): PDMP PDMP Reviewed: Not Reviewed Coding Level of Care Code Acute Code for Chg Fwd Diagnoses Non-ST elevation (NSTEMI) myocardial infarction I21.4 ESRD (end stage renal disease) N18.6
--- NOTE | 2025-02-23 11:23 | XACV_ITS ---
Exam Room: [facility] Ht: 165 cm Wt: 97 kg BSA: 2.15 m2 Gender: Male : 1970 Any Known Allergies: Other Exam Priority: Routine Indication(s): - Non-ST elevation TN Procedure(s): Procedure Description: Diagnostic procedure Procedure Description: PCI procedure Procedure Description: Drug Eluting Coronary Stent Procedure Description: Miscellaneous Procedure Description: ACT Procedure Description: Coronary Angiography Diagnostic Cath Status: Urgent Diagnostic Findings * INDICATION: NSTEMI/ ICD shock. * Left Main has no significant disease. * Left Anterior Descending has mild in-stent restenosis. Apical LAD has severe stenosis. * Circumflex has prior stent. Mild ISR. OM has prior stents with mild to moderate ISR. * Distal Right Coronary Artery: severe 70-80% stenosis, MEGHANA: 3 flow. * Coronary angiography shows right dominance. PCI Status: Urgent PCI Indication: NSTE - ACS Interventional Findings * Distal Right Coronary Artery: 70-80% stenosis treated with a AB TREK 2.50X15 RX BALLOON, ANGELICA Lamar JED 2.5X26 SHUKRI, and ANGELICA ASLAS EUPHORA RX [id number] BALLOON. 0% residual stenosis, MEGHANA: 3 flow. * Procedure detail: We crossed severe RCA stenosis with a run-through wire. We predilated the stenosis with 2.5 x 15 mm semicompliant balloon. This was followed by placement of 2.5 x 26 mm resolute Jed drug-eluting stent. Then postdilated the stent with 2.5 x 15 mm NC balloon. At this time final angiogram was performed that showed excellent stent, no residual stenosis and to 3 flow. Guidewire and guide catheter were removed. Patient had the Powerbuilder in a stable condition.. Conclusions 1. Severe distal RCA stenosis s/p PCI with 1 stent. 2. Distal Right Coronary Artery was treated with a Balloon, Drug Eluting Stent, and Balloon. Recommendations * Eliquis and plavix. * High intensity statin therapy. * Outpatient cardiology follow up in 2 weeks. Interventional RX Recommendation: PCI w/o planned CABG Diagnostic RX Recommendation: PCI w/o planned CABG Anticoagulation: Heparin Pressures Phase:Rest AO : 106 / 49 ( 67 ) @ 12:50:00 PM Clinical Evaluation EBL: 5mL-10mL Procedural Details Procedure Consent Obtained. Current Diagnosis : NSTEMI. Pre-Procedure Time Out. Identified patient by full name and date of as verbalized by the patient/guarantor. Does the consent match the physician's order: Yes. Accurate & Complete Informed Consent: Yes. Inpatient/Outpatient History & Physical on Chart: Yes. If H&P is completed, is and addenduem needed: No; If yes, is the addendum complete: N/A. Visualize and Verify Site with Patient/Guarantor: N/A. Relevant Radiology Images available: N/A. The risks, benefits, and alternatives of sedation and/or procedure were discussed by physician. The patient agrees to continue. Procedure started. [facility] Clinical Fraility Score: 5: Mildly Frail. Powerbuilder Indications: Other. Chest Pain Symptom Assessment: Typical Angina Symptoms. Cardiovascular Instability: No, if yes, Persistant Ischemic Symptoms. Correct patient, site and procedure confirmed by cath team. Current diagnosis: NSTEMI. PERRLA. Strong, equal hand cosmetology instructor bilaterally. Lungs clear x 5 lobes. IV Site on Arrival: 20 gauge in the right anticubital. IV Fluids: 0.9% NaCl at KVO. 0 mL infused prior to biological lab technician. Pre Procedural Pulses: bilateral posterior tibial was Doppled. Pre Procedural Pulses: bilateral dorsalis pedis was Doppled. Pre Procedural Pulses: bilateral radial was 2+. Oxygen started at 3liters/min via nasal canula. bilateral groins was prepped with chloroprep then draped in the usual sterile fashion. Baseline sample Acquired. HR: 63 BPM. Physician notified. Physician arrived. Physician scrubbed in. Patient's family unavailable. Admit Source: In Patient. Immediate Pre-Procedure Time Out. Correct Patient: Yes; Correct Procedure: Yes; Correct Site: Yes; Correct Patient Position: Yes; Correct Supplies: Yes; Dried Flammable Prep: Yes; Blood Products Available: N/A;. Lidocaine 1% infiltrated to the right groin. Arterial access obtained. A 5 czech JL4 catheter in over wire. Multiple views taken of left coronary artery. Catheter removed over the standard wire. A 5 czech JR4 catheter in over wire. Multiple views taken of right coronary artery. Catheter removed over the standard wire. 6 czech JR 4 SH guide catheter was inserted over the wire. Guide seated in the RCA. Runthrough guidewire was advanced through the guide catheter to lesion in the distal Circ. Guidewire advanced across lesion. Inflation number : 1 A AB TREK 2.50X15 RX BALLOON was prepped and advanced across the Dist RCA , then inflated to 12 DICK for 0:17 seconds. Inflation number: 2 The AB TREK 2.50X15 RX BALLOON was reinflated across the Dist RCA, to 12 DICK for 0:13 seconds. Balloon out. Results checked. Inflation Number : 3 A MDT R JED 2.5X26 SHUKRI -Lot Number# [id number] EXP 04/10/27 was prepped and advanced across the Dist RCA. The stent was deployed at 12 DICK for 0:20 seconds. Stent balloon out over wire. Results checked. Inflation number : 4 A MDT NC EUPHORA RX [id number] BALLOON was prepped and advanced across the Dist RCA , then inflated to 16 DICK for 0:15 seconds. Inflation number: 5 The MDT NC EUPHORA RX [id number] BALLOON was reinflated across the Dist RCA, to 18 DICK for 0:13 seconds. Balloon out. Results checked. Wire out. ACT drawn. Results 0ut of range hi seconds. Therapeutic limits - pre-heparin administration 90-150 seconds and monitoring heparin during a vascular procedure >250 seconds. Guide catheter out. Contrast type used: Visipaque 320 mgI/mL, 200 mL bottle. [id number]. Physician review of films. A Right femoral angiogram was performed to determine safe placement of closure device. A Suture was successful obtaining hemostatsis at the Right Femoral artery insertion site. Sheath(s) sutured into position with 2-0 silk and sterile 4x4's and Op-site applied over the site. No oozing or signs and symptoms of hematoma noted. Arterial sheath flushed and connected to tranducer and pressure bag with heparinized saline. Physician scrubbed out. Post-op diagnosis: Severe mid to distal RCA stenosis; status post one shukri. Complications: None. Post Procedure: Pulses reassessed and unchanged. PERRLA. Strong, equal hand cosmetology instructor bilaterally. No VTE prophylaxis required. Medication's Wasted: Lidocaine 1% = 10 ml , Versed = 1 mg , Heparin = 1000 units , Fentanyl = 50 mcg. Total IV fluids: 30 mL. Fluoro: 5:08. Estimated blood loss: 5mL-10mL. Responsiveness - Normal response to verbal stimuli; alert and oriented, PERRLA. Airway - Unaffected, no intervention required; spontaneous ventilation. Circulation: W/N/L, pulses unchanged. Nausea/Vomiting: No. Procedure completed. Patient transferred by bed to 1st floor. ACT drawn. Results 339 seconds. Therapeutic limits - pre-heparin administration 90-150 seconds and monitoring heparin during a vascular procedure >250 seconds. Vital chart was stopped. Access Site Site: Right Femoral artery Sheath Size: 6 Fr Hemostasis Method: Suture Hemostasis Success: Successful Procedure Medications Start: 11:41 AM Stop: 11:41 AM Medication: Benadryl Amount: 50 mg Route: I.V. Start: 11:42 AM Stop: 11:42 AM Medication: Solu-Medrol (methylprednisolone) Amount: 125 mg Route: I.V. Start: 11:47 AM Stop: 11:47 AM Medication: Versed Amount: 1 mg Route: I.V. Start: 11:47 AM Stop: 11:47 AM Medication: Fentanyl Amount: 50 mcg Route: I.V. Start: 11:59 AM Stop: 11:59 AM Medication: Heparin Amount: 8000 units Route: I.V. I, the attending physician, have reviewed and verified all procedure medications. Yes, all medications given per verbal order History/Risk Factors Hypertension: Yes Dyslipidemia: Yes Peripheral Arterial Disease (PAD): Yes Myocardial Infarction (TN): Yes Obesity: Yes Renal Disease: Yes Tobacco Use: Never Prior Interventions PCI: Yes CABG: No Valve Surgery: No Date of PCI: 03/25/2024 Report Signatures Finalized by Garrison Mckinney MD on 02/27/2025 01:22 PM
--- NOTE | 2025-02-23 11:39 | W.PM.OPSUD ---
Surgery/Procedure H&P Update DATE OF PROCEDURE: February 23, 2025 DATE H&P PERFORMED: 02/22/25 H&P UPDATE INFORMATION: I have reviewed H&P completed within last 30 days, I have examined patient prior to procedure and No changes to prior documentation PREOP DIAGNOSIS: NSTEMI/ ICD shock PRIMARY INDICATION FOR PROCEDURE: NSTEMI/ ICD shock PLANNED PROCEDURE: Left heart cath with possible percutaneous coronary intervention PATIENT REASSESSED PRIOR TO SEDATION, WITH NO CHANGE NOTED: Yes PHYSICAL EXAM: alert, oriented x 3, clear to auscultation bilaterally and regular rate & rhythm AIRWAY EVAL/ANESTHESIA PLAN: normal airway, ASA III, Local Anesthesia, Risks, benefits & alternatives of sedation and/or procedure discussed and Patient agrees to continue as planned ADDITIONAL INFORMATION: Moderate sedation
--- NOTE | 2025-02-23 12:14 | PM.PROC ---
Procedure Note: Date of procedure: 02/23/25 Pre-procedure diagnosis: NSTEMI/wide-complex tachycardia/ICD shock Post-procedure diagnosis: other (Severe mid to distal RCA stenosis status post PCI with 1 stent) Procedure: Has mild to moderate ISR of prior stents. Mid to distal RCA has severe stenosis. Status post PCI with 1 stent. Plavix and Eliquis Coding Level of Care Code Acute Code for Chg Fwd
--- NOTE | 2025-02-23 12:49 | PC.NURSE ---
Patient received from open hearth furnace laborer s/p [facility] with PCI via right femoral artery. Sheath is in place with pressure bag attached. Site remains c,d,i without s/s of bleeding or hematoma formation observed. Instructed patient on site care with restrictions. Patient verbalized understanding. No distress observed.
--- NOTE | 2025-02-23 13:59 | PM.PN ---
Subjective Subjective: Patient with ongoing chest pain overnight improved with cardioversion from amiodarone back to sinus rhythm but not resolved. Patient underwent selective coronary angiogram with PCI of mid to distal RCA with a drug-eluting stent placed. He is undergoing dialysis this afternoon after being seen by Dr. Gibson. I caught up with patient receiving dialysis up on the second floor. He states that his pain is diminished with angiogram and does not know specifically what stents he received. I told him he received a mid to distal RCA stent. He states that is good and he is glad they were able to align something. He states that his pain is now 4/10 and hopes that it will resolve. He states that in the past sometimes after stents his pain has persisted. Most recent echocardiogram showed LVEF 40% and moderately increased left atrial size in March 2024. In November 2024 he had Lexiscan showing LVEF 34% Vitals/I&O/Wt Last Vital Signs Temp 98.2 F 02/23/25 07: Pulse 64 02/23/25 12:45 Resp 16 02/23/25 12:45 BP 120/60 02/23/25 12:45 Pulse Ox 98 02/23/25 12:45 O2 Del Method Nasal Cannula 02/23/25 04:00 02/22/25 02/23/25 02/23/25 22:59 06:59 14:59 Intake Total 657.776 / 718.907 2170.551 / 2451.327 128.128 / 128.128 Output Total 250 / 250 Balance 407.776 / 815.296 6486.551 / 2201.327 128.128 / 128.128 Weight last 48 hrs Weight 96.9 kg Weight 96.9 kg Weight 96.2 kg Weight 92.986 kg Weight 92.986 kg Physical Exam Narrative: General Well-developed male obese mild discomfort CV regular rate and rhythm Lungs clear to auscultation on anterior exam Abdomen positive bowel tones soft nontender Calves no pretibial edema. There are postoperative scars from what he says was surgery for bilateral compartment syndrome Skin warm and dry Data 02/22/25 09:10 02/23/25 04:00 A&P Assessment and plan 1. Acute coronary syndrome with high troponin: Patient with acute coronary syndrome from RCA severe stenosis complicated by A-fib RVR. Troponin reached 338 this morning. He has had a mid to distal RCA stent placed 2. Atrial fibrillation with rapid ventricular response: He reverted to sinus rhythm with an amiodarone last night around 2099. Stent was placed today. Will discuss with airport operations manager whether or not to continue amiodarone. Patient has risk factors of CHF with EF 35 to 40% and mild left atrial enlargement. On the flip side his ischemic event has been treated and this should decrease risk of A-fib. 3. Ischemic cardiomyopathy: EKG showed A-fib RVR. Last echocardiogram March 2024 showed mildly increased LV ventricular size with EF 40% and mid to distal anterior wall and apical hypokinesis with grade 1/4 diastolic dysfunction moderately increased atrial size and severe aortic calcification with mild stenosis 4. Atherosclerotic heart disease of [place] coronary artery with other forms of angina pectoris: History of multiple stents with additional stent this morning 5. ESRD (end stage renal disease): Dr. Gibson is managing dialysis currently and he is on schedule just before 6 AM for Saturday dialysis not currently emergent Patient states he is getting dialysis covered by his insurance on above schedule 6. Type 2 diabetes mellitus with other circulatory complication, with long-term current use of insulin: Continue with insulin 40 units Tresiba or equivalent every morning plus sliding scale insulin low scale PDMP PDMP Reviewed: Not Reviewed Attestations Medical Necessity Statement*: Patient remains in hospital for dialysis and monitoring overnight anticipate discharge tomorrow Coding Level of Care Code 67714 Diagnoses Acute coronary syndrome with high troponin I24.9 Atrial fibrillation with rapid ventricular response I48.91 Ischemic cardiomyopathy I25.5 Atherosclerotic heart disease of [place] coronary 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 ESRD (end stage renal disease) N18.6 Type 2 diabetes mellitus with other circulatory complication, with long-term current use of insulin E11.59; Z79.4 Diabetes mellitus complication detail: with other circulatory complications Diabetes mellitus complication status: with circulatory complication Diabetes mellitus [facility] insulin use: with intermediate designer use Time Spent (min) 35
[2025-02-23 15:25] LABS: Partial Thromboplastin Time > 250.0 SECONDS (23.9-36.7)
[2025-02-23 16:02] LABS: Hepatitis B Surface Antigen Non-Reactive (Nonreactive)
--- NOTE | 2025-02-23 18:17 | PC.NURSE ---
Patient received from dialysis via bed. Patient c/o pain which was treated as ordered and documented. PTT drawn. Sheath remains in place to right groin with pressure bag attached. No s/s of bleeding or hematoma formation observed. patient denies pain to site. Instructed patient on site care and pending removal of sheath. Patient verbalized complete understanding.
[2025-02-23 18:43] LABS: Partial Thromboplastin Time 38.7 SECONDS (23.9-36.7)
[2025-02-23] MEDS: b-complex-vitamin c Tablet 1 EACH PO (20:18)
--- NOTE | 2025-02-23 22:37 | PC.NURSE ---
Sheath removal Sheath was pulled at at 2130. hemostasis achieved immediately, manual pressure held for 20 minutes. vitals remains stable, site soft with no bruising or hematoma. site covered with 4x4 and large tegaderm. instructed patient to remain leaving the right leg still, patient verbally expressed understanding
[2025-02-24] VITALS (8 sets, daily range): BP systolic 120–142; BP diastolic 47–76; PULSE 56–76; RESP 13–20; TEMP 36.4–36.8; O2SAT 94–97
[2025-02-24] MEDS: morphine 4 mg/mL SDV 1 mL IVP ×3 (02:40→11:09)
[2025-02-24 03:12] LABS: Hematocrit 33.5 % (37-53); Hemoglobin 11.30 g/dL (11.27-16.99); Mean Corpuscular HGB Conc 33.7 g/dL (30-55); Mean Corpuscular Hemoglobin 32.4 pg (27-33); Mean Corpuscular Volume 96.0 fl (82-101); Nucleated Red Blood Cells % 0 %; Platelet Count 349 10^3/cmm (157-399); Red Blood Count 3.49 10^6/uL (3.85-5.65); White Blood Count 8.02 10^3/uL (3.29-11.43)
[2025-02-24 03:36] LABS: Anion Gap 18.4 (5-19); Blood Urea Nitrogen 46 mg/dL (6-20); Calcium 8.8 mg/dL (8.5-10.5); Carbon Dioxide 24 mmol/L (22-29); Chloride 96 mmol/L (98-107); Creatinine Clr Calc Pharmacy 23.5114; Glucose 355 mg/dL (65-115); Osmolality Calculated 304 mOsm/kg (285-295); Potassium 4.4 mmol/L (3.5-5.1); Sodium 134 mmol/L (136-145)
[2025-02-24] MEDS: insulin glargine 100 units/1 mL 40 UNIT SUBCUT (04:53)
[2025-02-24] MEDS: APIXABAN 2.5 MG TABLET PO (07:16)
--- NOTE | 2025-02-24 08:24 | PC.SOCIAL ---
IMM Update pg 2 of IMM updated and reviewed w/ patient. Copy provided and copy dated, initialed and placed in chart.
--- NOTE | 2025-02-24 09:23 | P.PN_ITS ---
Subjective 2 Subjective: no new c/o Medications: Reviewed: Yes Vitals/I&O/Wt Last Vital Signs Temp 97.6 F 02/24/25 08:00 Pulse 68 02/24/25 08:00 Resp 20 H 02/24/25 08:00 BP 122/49 02/24/25 08:00 Pulse Ox 97 02/24/25 08:00 O2 Del Method Room Air 02/24/25 03:24 02/23/25 02/24/25 02/24/25 22:59 06:59 14:59 Intake Total 1335 / 1463.128 835 / 2298.128 Output Total 3502 / 3852 0 / 3852 Balance -2167 / -2388.872 835 / -1553.872 Weight last 48 hrs Weight 99.2 kg Weight 97.9 kg Weight 96.9 kg Weight 96.9 kg Weight 96.2 kg Weight 92.986 kg Physical Exam 2 Narrative: awak , aelrt PEERLA NO JVD S1S2 RRR per report Lungs clear karissa Abd soft , non tender no edema Data 02/24/25 02:42 02/24/25 02:42 A&P Assessment and plan 1. Non-ST elevation (NSTEMI) myocardial infarction: 1. End-stage renal disease: On TTS schedule ,HD tomorrow 2. Ischemic cardiomyopathy with prior multiple stents. 3. Hypertension, blood pressure controlled 4. Anemia: Hemoglobin at goal, monitor 5. A-fib with RVR, on presentation, status post amiodarone and cardioversion Patient evaluated using audiovisual cart. Time spent 40 minutes 2. ESRD (end stage renal disease): PDMP PDMP Reviewed: Not Reviewed Attestations 2 Medical Necessity Statement*: per medicine Coding Level of Care Code Acute Code for [facility] Fwd Diagnoses Non-ST elevation (NSTEMI) myocardial infarction I21.4 ESRD (end stage renal disease) N18.6
--- NOTE | 2025-02-24 09:43 | P.PN_ITS ---
<Statement entered by Garrison Mckinney M.D - 02/25/25 11:58> Patient was cared for in conjunction with an advanced practice practitioner.? I reviewed the chart and all pertinent data including imaging, telemetry, and laboratory results.? I discussed the patient in detail with the advanced practice practitioner.? Please see?their note for progress note, testing results and agreed upon plan of care for the patient. Subjective 2 Subjective: He has done well overnight, very mild chest pressure 1/10 transient. No shortness of breath. Had HD yesterday. Appears euvolemic. In sinus rhythm. Vitals/I&O/Wt Last Vital Signs Temp 97.6 F 02/24/25 08:00 Pulse 68 02/24/25 08:00 Resp 20 H 02/24/25 08:00 BP 122/49 02/24/25 08:00 Pulse Ox 97 02/24/25 08:00 O2 Del Method Room Air 02/24/25 03:24 02/23/25 02/24/25 02/24/25 22:59 06:59 14:59 Intake Total 1335 / 2298.128 835 / 2298.128 Output Total 3502 / 3852 0 / 3852 Balance -2167 / -1553.872 835 / -1553.872 Weight last 48 hrs Weight 218 lb 11.177 oz Weight 215 lb 13.321 oz Weight 213 lb 10.047 oz Weight 213 lb 10.047 oz Weight 212 lb 1.355 oz Weight 205 lb Physical Exam 2 Const: COMMON NORMALS: no acute distress and patient oriented x3 GENERAL APPEARANCE: cooperative ORIENTATION/CONSCIOUSNESS: Yes awake, Yes oriented to person, Yes oriented to place and Yes oriented to time Chest: COMMONS NORMALS: normal inspection of the chest and normal palpation of entire chest wall CHEST: Yes Symmetrical chest wall rise Resp: COMMON NORMALS: normal respiratory effort, No retractions, No use of accessory muscles and clear to auscultation bilaterally AUSCULTATION: clear to auscultation bilaterally Cardio: COMMON NORMALS: regular rate, regular rhythm, S1 normal heart sound present, S2 normal heart sound present, No gallops present (Cardio), No clicks present (Cardio), No murmurs present (Cardio) and No rub (Cardio) RATE: r egular rate RHYTHM: regular rhythm HEART SOUNDS: S1 normal heart sound present and S2 normal heart sound present PERIPHERAL PULSES: radial pulses present positive right 2+ and femoral pulses present positive right 2+ Neuro: COMMON NORMALS: patient oriented x3 and moves all extremities S ENSORIUM/ORIENTATION: Yes oriented to person, Yes oriented to place and Yes oriented to time Skin: WOUNDS: Yes surgical site (no hematoma palpable) Details: no odor Data 02/24/25 02:42 02/24/25 02:42 A&P Assessment and plan 1. Wide-complex tachycardia: 2. Atrial fibrillation with rapid ventricular response: 3. Primary hypertension: 4. Atherosclerotic heart disease of [place] coronary artery with other forms of angina pectoris: 5. Implantable cardioverter-defibrillator (ICD) discharge: Plan: Plan to discharge home today, discussed medication regimen with Dr Hightower the hospitalist. With plan to wean off amiodarone in the next few weeks, recommend to continue amiodarone 400 mg BID for 5 more days, then reduce to 200 mg BID until follow up visit. If no more arrhythmia, plan is to discontinue then. Continue metoprolol for rate control of atrial fibrillation, has had some bradycardia, discussed hold parameters for metoprolol. Continue Plavix and Eliquis. Can recheck echocardiogram in March, it will have been 1 year. PDMP PDMP Reviewed: Not Reviewed Attestations 2 Medical Necessity Statement*: dc home Coding Level of Care Code Acute Code for Chg Fwd Diagnoses Wide-complex tachycardia R00.0 Atrial fibrillation with rapid ventricular response I48.91 Primary hypertension I10 Hypertension type: primary hypertension Atherosclerotic heart disease of [place] coronary 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 Implantable cardioverter-defibrillator (ICD) discharge Z45.02
--- NOTE | 2025-02-24 13:27 | PM.DCS ---
Discharge Providers Date of Admission: 02/22/25 13:06 Date of Discharge: February 24, 2025 Attending Provider at Admission: Jose Hightower MD Attending Provider at Discharge: Jose Hightower MD Consults: Dr. Garirson Mckinney MD cardiology Dr. Clemencia Gibson MD nephrology Primary Care Provider: Dez Evans MD Diagnoses at Discharge Discharge Diagnosis 1. Wide-complex tachycardia: Details from hospital stay: This has been problematic and his pacemaker fired preceding his coming to the hospital. In the hospital he had A-fib with rapid ventricular response treated with amiodarone load and now 400 mg twice a day for another 5 days then 200 mg twice a day and follow-up with Amalia Mccain in 2 weeks 2. Atrial fibrillation with rapid ventricular response: Details from hospital stay: As above and started on apixaban 2.5 mg p.o. twice daily with his renal failure. Aspirin is stopped continue with Plavix 75 mg daily due to new stent 3. Primary hypertension: Details from hospital stay: Stable with blood pressure 122/49 4. Atherosclerotic heart disease of [place] coronary artery with other forms of angina pectoris: Details from hospital stay: Recurrent vascular disease and cholesterol possibly not treated recently. I wrote for atorvastatin 80 mg and I think the patient should have hs-CRP and lipoprotein a checked in the office or at 2 months follow-up with his lipids 5. Implantable cardioverter-defibrillator (ICD) discharge: Details from hospital stay: As above 6. ESRD (end stage renal disease): Details from hospital stay: Continue with dialysis Saturday Reason for Visit Reason for Visit: chest pain Brief History: Rei Queen II is a 54 year old male came in with weakness starting on Saturday after dialysis. He states that it became worse until today and he felt heavy in his chest and then his defibrillator went off. He denies it his defibrillator has ever gone off before that he has ever previously been shocked. He states that he is on apixaban at baseline due to clots in legs and clots in the lungs. Patient denies past history of atrial fibrillation. He reports some palpitations at home but not as bad as he is having currently. He reports chest heaviness at home but now he has 7-8/10 chest discomfort initially relieved by nitroglycerin drip until he went into A-fib. Patient states he was obese at age 18 and max weight 264 pounds down to 200 now 205. He has been on atorvastatin for hyperlipidemia but not ezetimibe. Patient states he has had stents in the heart placed at [place] here in [facility] in [place] he thinks he has had 5 total but his thinks he has had 9. Patient denies missing any medications. 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 Mckinney. Hospital Course Hospital Course Patient was admitted and started on amiodarone drip for rate control. He was on apixaban so angiogram was performed at increased risk of bleeding due to the patient's acute coronary syndrome elevated troponin urgently. Patient had a mid to distal RCA drug-eluting stent placed by Dr. Mckinney. Patient was also seen by Dr. Clemencia Gibson and received dialysis on Saturday. Patient's troponin reached 338 and I did not further check it. Patient's cholesterol was quite elevated with LDL 164 on 12/28/2024. Patient states he was taking atorvastatin but I did not see that in his medications. I started him on atorvastatin 80 mg a day. Additionally he needs to have his lipoprotein a and high-sensitivity C-reactive protein checked because he has had many many stents Physical Exam Narrative: General Well-developed male obese mild discomfort CV regular rate and rhythm Lungs clear to auscultation on anterior exam Abdomen positive bowel tones soft nontender Calves no pretibial edema. There are postoperative scars from what he says was surgery for bilateral compartment syndrome Skin warm and dry Discharge Data Studies Completed and Pending Completed Studies During Hospitalization Category Date Time Status XR chest 1V portable [id number] Stat Exams 02/22/25 08:25 Completed Pending at discharge Category Date Time Status REPORT CHECKER request for service Routine Exams 02/23/25 11:23 Taken Radiology Impressions Chest X-Ray 02/22/25 08:25 Impression: Atherosclerosis. Laboratory Results WBC 8.02 10^3/uL (3.29-11.43) 02/24/25 02:42 RBC 3.49 10^6/uL (3.85-5.65) L 02/24/25 02:42 Hgb 11.30 g/dL (11.27-16.99) 02/24/25 02:42 Hct 33.5 % (37-53) L 02/24/25 02:42 MCV 96.0 fl (82-101) 02/24/25 02:42 MCH 32.4 pg (27-33) 02/24/25 02:42 MCHC 33.7 g/dL (30-55) 02/24/25 02:42 RDW 12.9 % (12.1-15.1) 02/24/25 02:42 Plt Count 349 10^3/cmm (157-399) 02/24/25 02:42 MPV 9.4 fL (7.4-10.4) 02/24/25 02:42 Neut % (Auto) 87.1 % 02/24/25 02:42 Lymph % (Auto) 7.0 % 02/24/25 02:42 [place] % (Auto) 5.2 % 02/24/25 02:42 Eos % (Auto) 0.0 % 02/24/25 02:42 Baso % (Auto) 0.1 % 02/24/25 02:42 Neut # (Auto) 6.98 10^3/uL (1.8-7.7) 02/24/25 02:42 Lymph # (Auto) 0.6 10^3/uL (0.8-4.8) L 02/24/25 02:42 [place] # (Auto) 0.4 10^3/uL (0.2-0.9) 02/24/25 02:42 Eos # (Auto) 0.0 10^3/uL (0.0-0.8) 02/24/25 02:42 Baso # (Auto) 0.0 10^3/uL (0.0-0.1) 02/24/25 02:42 Nucleated RBC % (auto) 0 % 02/24/25 02:42 Nucleated RBCs # 0.0 /100WBC 02/24/25 02:42 APTT 38.7 SECONDS (23.9-36.7) H D 02/23/25 17:53 Sodium 134 mmol/L (136-145) L 02/24/25 02:42 Potassium 4.4 mmol/L (3.5-5.1) 02/24/25 02:42 Chloride 96 mmol/L (98-107) L 02/24/25 02:42 Carbon Dioxide 24 mmol/L (22-29) 02/24/25 02:42 Anion Gap 18.4 (5-19) 02/24/25 02:42 BUN 46 mg/dL (6-20) H 02/24/25 02:42 Creatinine 3.8 mg/dL (0.7-1.2) H 02/24/25 02:42 GFR Calculation 16.6 mL/min (90-130) L 02/24/25 02:42 Glucose 355 mg/dL (65-115) H 02/24/25 02:42 POC Glucose 317 mg/dL (70-110) H 02/24/25 11:06 Calculated Osmolality 304 mOsm/kg (285-295) H 02/24/25 02:42 Calcium 8.8 mg/dL (8.5-10.5) 02/24/25 02:42 Phosphorus 6.5 mg/dL (2.5-4.5) H 02/23/25 04:00 Magnesium 1.9 mg/dL (1.7-2.3) 02/23/25 04:00 Total Bilirubin 0.5 mg/dL (0.15-1.2) 02/22/25 09:10 AST 12 U/L (0-40) 02/22/25 09:10 ALT 8 U/L (0-41) 02/22/25 09:10 Alkaline Phosphatase 92 U/L (40-130) 02/22/25 09:10 Troponin T 5th Gen ng/L 338 ng/L (0-15) H* 02/23/25 04:00 Troponin T Baseline 110 ng/L (0-15) H* 02/22/25 09:10 Troponin T 120 Minute 135 ng/L (0-15) H 02/22/25 11:05 Delta Troponin T 25 ABS# (0-10) H* 02/22/25 11:05 Troponin T Hi Sens 6Hr 172.7 ng/L (0-15) H 02/22/25 15:13 Troponin T Hi Sens 6Hr Delta 62.7 ng/L (0-12) H* 02/22/25 15:13 Total Protein 6.6 g/dL (6.6-8.7) 02/22/25 09:10 Albumin 3.6 g/dL (3.5-5.2) 02/22/25 09:10 Globulin 3.0 g/dL (1.3-4.6) 02/22/25 09:10 Urine Color Yellow (Yellow) 02/22/25 09:20 Urine Appearance Clear (CLEAR) 02/22/25 09:20 Urine pH 6 (5-7) 02/22/25 09:20 Ur Specific [place] 1.015 (1.005-1.030) 02/22/25 09:20 Urine Protein 2+ (Negative) H 02/22/25 09:20 Urine Glucose (UA) 2+ (Normal) H 02/22/25 09:20 Urine Ketones Negative (Negative) 02/22/25 09:20 Urine Blood Trace (Negative) H 02/22/25 09:20 Urine Nitrate Negative (Negative) 02/22/25 09:20 Urine Bilirubin Neg (Negative) 02/22/25 09:20 Urine Urobilinogen Norm mg/dL (Negative) 02/22/25 09:20 Ur Leukocyte Esterase Negative (Negative) 02/22/25 09:20 Urine RBC Rare /hpf (0-2) 02/22/25 09:20 Urine WBC Rare /hpf (0-5) 02/22/25 09:20 Ur Squamous Epith Cells None /hpf (0-5) 02/22/25 09:20 Amorphous Sediment Not Reportable 02/22/25 09:20 Urine Bacteria None /hpf (NONE) 02/22/25 09:20 Hep Bs Antigen Non-reactive (Nonreactive) 02/23/25 04:00 Hep Bs Antibody 274.8 (11.5-1000) 02/23/25 04:00 Hepatitis C Antibody Non-reactive (Nonreactive) 02/23/25 04:00 Vitals Last Vital Signs Temp 97.6 F 02/24/25 08:00 Pulse 68 02/24/25 08:00 Resp 18 02/24/25 11:09 BP 122/49 02/24/25 08:00 Pulse Ox 97 02/24/25 08:00 O2 Del Method Room Air 02/24/25 03:24 Discharge Plan Discharge Patient Disposition: Home Condition: Stable Prescriptions: New amiodarone [Pacerone] 200 mg Tablet See Rx Instructions .ROUTE .COMPLEX Qty: 120 0RF Rx Instructions: 400 mg twice a day for 3 days then 200 mg twice a day thereafter atorvastatin [Lipitor] 80 mg tablet 80 mg PO BEDTIME Qty: 30 0RF clopidogrel 75 mg Tablet 75 mg PO DAILY Qty: 100 0RF metoprolol tartrate 25 mg Tablet 25 mg PO BID@0900,2100 Qty: 60 0RF Rx Instructions: Check your blood pressure twice a day before you take this medication and if heart rate less than 55 skip the dose Continued Ozempic 2 mg/dose (8 mg/3 mL) pen injector 2 mg SUBCUT Q7D Qty: 9 0RF nitroglycerin [Nitrostat] 0.4 mg tablet, sublingual 0.4 mg SUBLINGUAL Q5M PRN (Reason: Chest Pain) Qty: 25 2RF Rx Instructions: do not exceed 3 doses per episode (DME) Dexcom G7 Sensor Device See Rx Instructions .ROUTE .COMPLEX Qty: 9 1RF Dose Instruction: CHANGE every 10 DAYS Rx Instructions: CHANGE every 10 DAYS tizanidine 2 mg tablet 2 mg PO BID PRN (Reason: Muscle Spasm) promethazine 25 mg tablet 25 mg PO Q6H PRN (Reason: Nausea) bumetanide 2 mg tablet 2 mg PO DAILY sacubitril-valsartan [Entresto] 24-26 mg tablet 2 tab PO DAILY trazodone 100 mg tablet 300 mg PO PRN diphenhydramine HCl [Benadryl Allergy] 25 mg Tablet 50 mg PO DAILY PRN (Reason: Allergy Symptoms) insulin lispro [Humalog KwikPen Insulin] 100 unit/mL insulin pen See Rx Instructions .ROUTE .COMPLEX Rx Instructions: Sliding scale subcutaneously twice a day as needed. RenaPlex-D 800 mcg-12.5 mg -2,000 unit tablet 1 tab PO BEDTIME acetaminophen [Tylenol Extra Strength] 500 mg Tablet 1,000 mg PO QID PRN (Reason: Pain) levothyroxine 88 mcg tablet 88 mcg PO QAM gabapentin 300 mg capsule 300 mg PO BID Eliquis 2.5 mg tablet 2.5 mg PO BID insulin degludec [Tresiba FlexTouch U-200] 200 unit/mL (3 mL) insulin pen 40 unit SUBCUT QAM ranolazine 1,000 mg tablet extended release 12 hr 1,000 mg PO BID hydrocodone-acetaminophen 7.5-325 mg Tablet 1 tab PO Q6H PRN (Reason: Pain) Discharge Order = DC NOW: Discharge Order (Routine); Ordered 02/24/25 Ordered By: Jose Hightower Referrals: Dez Evans MD [Primary Care Provider, Family Practice] - 03/04/25 1:00 pm Amalia Mccain FNP [Nurse Practitioner, Cardiology] - 2 weeks Discharge Diet: Cardiac and Diabetic Patient Instructions: Atrial Fibrillation, Chest Pain - Noncardiac, Metoprolol (By mouth), Amiodarone (By mouth), Atorvastatin (By mouth), Clopidogrel (By mouth), Heart Attack (DC), Coronary Angioplasty (DC), Acute Coronary Syndrome (DC), Opioid Safety, Patient Portal & Sunny Instructions Activity Restrictions/Additional Instructions: Take your medications as prescribed and note that you are now on apixaban which is a blood thinner and also Plavix which is a platelet inhibitor. The 2 medications together increase your risk of bleeding should you have an ulcer. If you have stomach discomfort or reflux I recommend you start taking omeprazole 20 mg daily 30 minutes before your biggest meal of the day. If you do not have heartburn or stomach upset then you do not have to take it. I have written for you to have this as needed You should eat a 1600-calorie weight loss diet which will make allow you to lose weight gradually at 2 to 3 pounds a week and get you to a healthier weight for your heart and dialysis. Return for persistent heart rate over 110 or chest pain not relieved by nitroglycerin Discharge Attestations Time Spent in Discharge Care*: greater than 30 min Status at Discharge: Cognitive status at discharge: cognitively intact, Behavioral status at discharge: cooperative and independent in ADL's, Quality Metrics Clinical Quality Measures [ Acute Myocardial Infaction { Clinical Trial Participant: No; Contraindication to aspirin: None; Aspirin prescribed; Contraindication to statin: None; Statin prescribed; Contraindication to PCI: None; PCI performed; Contraindication to Fibrinolytics: Drug treatment not indicated}] Coding Level of Care Code Acute Code for Chg Fwd Diagnoses Wide-complex tachycardia R00.0 Atrial fibrillation with rapid ventricular response I48.91 Primary hypertension I10 Hypertension type: primary hypertension Atherosclerotic heart disease of [place] coronary 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 Implantable cardioverter-defibrillator (ICD) discharge Z45.02 ESRD (end stage renal disease) N18.6
== END 2025-02-24 15:34 | disposition home or self-care (01) | DRG 321 ==
LOC: ER 10:34 → CSU 13:06
PROVIDERS: Hospitalist; Internal Medicine; Internal Medicine Cardiovascular Disease; Nurse Practitioner Family; Admitting Provider Internal Medicine; Emergency Provider Family Medicine; PCP Family Medicine; Visit Provider Internal Medicine
PROC: 027034Z Dilation of Coronary Artery, One Artery with Drug-eluting Intraluminal Device, Percutaneous Approach (ICD-10-PCS; principal; 2025-02-23 11:30)
PROC: 027034Z Dilation of Coronary Artery, One Artery with Drug-eluting Intraluminal Device, Percutaneous Approach (ICD-10-PCS; 2025-02-23 11:30)
DX: I21.4 Non-ST elevation (NSTEMI) myocardial infarction (principal); N18.6 End stage renal disease; T82.855A Stenosis of coronary artery stent, initial encounter; F33.9 Major depressive disorder, recurrent, unspecified; I13.2 Hypertensive heart and chronic kidney disease with heart failure and with stage 5 chronic kidney disease, or end stage renal disease; I50.22 Chronic systolic (congestive) heart failure; F41.1 Generalized anxiety disorder; E11.51 Type 2 diabetes mellitus with diabetic peripheral angiopathy without gangrene; E11.40 Type 2 diabetes mellitus with diabetic neuropathy, unspecified; I25.5 Ischemic cardiomyopathy; K21.9 Gastro-esophageal reflux disease without esophagitis; R00.0 Tachycardia, unspecified; D63.1 Anemia in chronic kidney disease; E78.2 Mixed hyperlipidemia; I25.10 Atherosclerotic heart disease of native coronary artery without angina pectoris; E11.22 Type 2 diabetes mellitus with diabetic chronic kidney disease; Z95.810 Presence of automatic (implantable) cardiac defibrillator; Z99.2 Dependence on renal dialysis; Z79.890 Hormone replacement therapy; Z79.01 Long term (current) use of anticoagulants; Z79.4 Long term (current) use of insulin; Z79.899 Other long term (current) drug therapy; Z88.2 Allergy status to sulfonamides; Z88.8 Allergy status to other drugs, medicaments and biological substances; Z91.041 Radiographic dye allergy status; Y71.3 Surgical instruments, materials and cardiovascular devices (including sutures) associated with adverse incidents; Z86.711 Personal history of pulmonary embolism; Z86.718 Personal history of other venous thrombosis and embolism; Z86.74 Personal history of sudden cardiac arrest
CPT/HCPCS: 36415; 36416; 36591; 71045; 80048; 80053; 81001; 82962; 83735; 84100; 84484; 85025; 85347; 85730; 86706; 86803; 87340; 90935; 93005; 96372; 96374; 96375; 99152; 99153; 99285; C1725; C1769; C1874; C1887; C1894; C9600; J0282; J0283; J1200; J1644; J1815; J1938; J2060; J2250; J2270; J2919; J3010; J3490; J7030; J9999; Q0163; Q3014; Q9967

== ENCOUNTER 2025-02-25 13:56 | Inpatient (IN) | payer MEDICARE, SELFPAY ==
[2024-03-20 13:31] VITALS: BP 125/53; BMI 35.0
[2025-02-25] VITALS (10 sets, daily range): BP systolic 91–138; BP diastolic 40–101; PULSE 58–82; RESP 16–21; TEMP 36.5–36.8; O2SAT 91–99; BMI 34.1; BMI 35.9
--- NOTE | 2025-02-25 13:59 | XRR_ITS ---
PROCEDURE INFORMATION: Exam: XR Abdomen Exam date and time: 02/25/2025 2:28 PM Age: 54 years old Clinical indication: Abdominal pain TECHNIQUE: Imaging protocol: Radiologic exam of the abdomen. Views: 2 Views. Upright and supine views. COMPARISON: CT abdomen pelvis wo con [id number] 02/09/2023 12:00 PM FINDINGS: Tubes, catheters and devices: Cardiac pacemaker/ICD is in place. Left IJ port infusion catheter with tip in SVC. Prior median sternotomy. Lungs: Interval appearance of left basilar airspace disease and right basilar atelectasis. Component of airspace disease in the right lung base can not be excluded. Pleural spaces: No pleural effusion. Heart/Mediastinum: Cardiomediastinal contours accentuated by low lung volumes and AP technique. Diaphragm: Elevated right hemidiaphragm. Gastrointestinal tract: Large amount of colonic stool. Intraperitoneal space: Right upper quadrant surgical clips noted. No free fluid in the pelvis. Bones/joints: Mild degenerative change present in the spine. Soft tissues: Vascular calcifications noted in the soft tissues. XR/XR acute abdomen series [id number] IMPRESSION: No acute abdominal pathology. Large amount of colonic stool. Basilar areas of atelectasis and/or airspace disease, greater on the left.
--- NOTE | 2025-02-25 14:11 | ECG_ITS ---
[employer] Test Date: 2025-02-25 Pat Name: Rei Queen Department: Room: Gender: Male Regulated Program Manager: : 1970 Requested By: Inge Hart Order Number: [id number] Becky MD: SALIMA HYDE Measurements Intervals Powell Rate: 58 P: 19 WY: 197 QRS: -19 QRSD: 110 T: 101 QT: 451 QTc: 444 Interpretive Statements SINUS BRADYCARDIA POSSIBLE ANTERIOR MYOCARDIAL INFARCTION , PROBABLY OLD [30 ms Q WAVE IN V3/V4, OR R < 0.2 mV IN V4] Compared to ECG 02/22/2025 17:55:47 Atrial fibrillation no longer present Ventricular premature complex(es) no longer present Aberrant conduction of supraventricular beat(s) no longer present Myocardial infarct finding still present Electronically Signed On 02-25-2025 16:48:52 CDT by SALIMA HYDE [email or web address]
--- NOTE | 2025-02-25 14:15 | PC.NURSE ---
informed pt of need for urine sample, pt denies being able to urinate at this time. pt adamantly refusing straight cath option, pt has urinal.
--- NOTE | 2025-02-25 14:17 | W.ED.AMS ---
HPI - Altered Mental Status General: Chief Complaint: Altered Mental Status Stated Complaint: ams Time Seen by Provider: 02/25/25 13:57 History of Present Illness: 54-year-old man with history of end-stage renal disease on dialysis, coronary artery disease, DVT with chronic anticoagulation on Eliquis, type 2 diabetes mellitus and hypertension who presents emergency room by ambulance from dialysis with an episode of low blood pressure and confusion. Upon arrival here his he is initially normotensive and does not appear confused. He does say he has as needed oxygen at home. No focal motor deficits. He is complaining of a cough and some shortness of breath with malaise. He had some sputum come up during the ride over. Related Data Home Medications ?Medication ?Instructions ?Recorded ?Confirmed diphenhydramine HCl 25 mg tablet 50 mg PO DAILY PRN Allergy Symptoms 05/02/23 02/25/25 (Benadryl Allergy) insulin lispro 100 unit/mL See Rx Instructions .Route .COMPLEX 05/02/23 02/25/25 subcutaneous pen (Humalog KwikPen (U-100) Insulin) vit B,C-folic ac 800 mcg-zinc 12.5 1 tab PO BEDTIME 10/29/23 02/25/25 mg-selen-D3 2,000 unit-vit E tablet (RenaPlex-D) tizanidine 2 mg tablet 2 mg PO BID PRN Muscle Spasm 03/24/24 02/25/25 promethazine 25 mg tablet 25 mg PO Q6H PRN Nausea 04/21/24 02/25/25 acetaminophen 500 mg tablet 1,000 mg PO QID PRN Pain 06/04/24 02/25/25 (Tylenol Extra Strength) apixaban 2.5 mg tablet (Eliquis) 2.5 mg PO BID 12/08/24 02/25/25 gabapentin 300 mg capsule 300 mg PO BID 12/08/24 02/25/25 insulin degludec 200 unit/mL (3 40 unit SUBCUT QAM 12/08/24 02/25/25 mL) subcutaneous pen (Tresiba FlexTouch U-200 insulin) levothyroxine 88 mcg tablet 88 mcg PO QAM 12/08/24 02/25/25 ranolazine 1,000 mg 1,000 mg PO BID 12/08/24 02/25/25 tablet,extended release,12 hr hydrocodone 7.5 mg-acetaminophen 1 tab PO Q6H PRN Pain 01/07/25 02/25/25 325 mg tablet bumetanide 2 mg tablet 2 mg PO DAILY 02/22/25 02/25/25 sacubitril 24 mg-valsartan 26 mg 2 tab PO DAILY 02/22/25 02/25/25 tablet (Entresto) trazodone 100 mg tablet 300 mg PO BEDTIME PRN insomnia 02/22/25 02/25/25 dorzolamide 22.3 mg-timolol 6.8 1 drp ophthalmic (eye) BID 02/25/25 02/25/25 mg/mL eye drops testosterone cypionate 200 mg/mL 200 mg IM .Q30D 02/25/25 02/25/25 intramuscular oil Previous Rx's ?Medication ?Instructions ?Recorded nitroglycerin 0.4 mg sublingual 0.4 mg sublingual Q5M PRN Chest 08/27/23 tablet (Nitrostat) Pain #25 tabs blood-glucose sensor ([employer] G7 #9 ea 12/14/24 Sensor device) semaglutide 2 mg/dose (8 mg/3 mL) 2 mg (0.75 mL) SUBCUT Q7D #9 mL 01/01/25 subcutaneous pen injector (Ozempic) amiodarone 200 mg tablet (Pacerone) See Rx Instructions .Route 02/24/25 .COMPLEX #120 tabs atorvastatin 80 mg tablet (Lipitor) 80 mg PO BEDTIME #30 tabs 02/24/25 clopidogrel 75 mg tablet 75 mg PO DAILY #100 tabs 02/24/25 metoprolol tartrate 25 mg tablet 25 mg PO BID@0900,2100 #60 tabs 02/24/25 azithromycin 250 mg tablet See Rx Instructions PO .COMPLEX #6 02/25/25 (Zithromax Z-Markos) tabs prednisone 20 mg tablet 40 mg (2 x 20 mg) PO DAILY 5 days 02/25/25 #10 tabs Allergies Allergy/AdvReac Type Severity Reaction Status Date / Time Iodinated Contrast Media Allergy Severe ALGY-Difficulty Verified 02/09/25 14:20 Breathing iodine Allergy Severe ALGY-Difficulty Verified 02/09/25 14:20 Breathing metoclopramide (From Reglan) Allergy Severe ALGY-Difficulty Verified 02/09/25 14:20 Breathing nalbuphine (From Nubain) Allergy Severe ADR-Diarrhe Verified 02/09/25 14:20 a naproxen (From Naprosyn) Allergy Severe ADR-Vomitin Verified 02/09/25 14:20 g Sulfa (Sulfonamide Allergy Severe ALGY-Difficulty Verified 02/09/25 14:20 Antibiotics) Breathing ketorolac Allergy Intermediate ADR-Nausea Verified 02/09/25 14:20 ondansetron (From Zofran) Allergy Intermediate ADR-Abdominal Verified 02/09/25 14:20 Pain prochlorperazine (From Allergy Intermediate ADR-Irritab Verified 02/09/25 14:20 Compazine) le codeine AdvReac Severe ALGY-Anaphy Verified 02/09/25 14:20 laxis haloperidol (From Haldol) AdvReac Intermediate ADR-Irritab Verified 02/09/25 14:20 le Review of Systems Narrative: Constitutional symptoms: Negative except as documented in HPI. Skin symptoms: Negative except as documented in HPI. Eye symptoms: Negative except as documented in HPI. ENMT symptoms: Negative except as documented in HPI. Respiratory symptoms: Negative except as documented in HPI. Cardiovascular symptoms: Negative except as documented in HPI. Gastrointestinal symptoms: Negative except as documented in HPI. Genitourinary symptoms: Negative except as documented in HPI. Musculoskeletal symptoms: Negative except as documented in HPI. Neurologic symptoms: Negative except as documented in HPI. Psychiatric symptoms: Negative except as documented in HPI. Endocrine symptoms: Negative except as documented in HPI. PFSH ED PFSH: Medical History (Updated 02/25/25 @ 16:35 by Inge Ortiz MD) Ischemic cardiomyopathy Contrast media allergy Thoracic disc disease Non-pressure chronic ulcer of other part of left foot limited to breakdown of skin Bilateral pes planus Hammertoe of left foot Rupture of extensor tendon of foot Kidney failure Type 2 diabetes mellitus with other circulatory complication, 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 Atherosclerotic heart disease of [place] coronary artery with other forms of angina pectoris hx of CAD with prior stenting of proximal LAD, LCx, RCA ESRD (end stage renal disease) Hypothyroidism Generalized anxiety disorder Major depressive disorder, recurrent severe without psychotic features Pericarditis Essential hypertension Psychiatric care 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 mellitus CRF (chronic renal failure) Chronic right SI joint pain Chronic systolic heart failure UTI (urinary tract infection) Peripheral arterial disease PVD (peripheral vascular disease) Worsening angina Angina at rest Uremic encephalopathy D-dimer, elevated Acute on chronic congestive heart failure History of pulmonary embolism Acute kidney injury superimposed on CKD GERD (gastroesophageal reflux disease) Alcohol use disorder, moderate, in sustained remission DVT (deep venous thrombosis) (~03/2020) Proximal left subclavian, basilic and brachial veins, started eliquis this stay, felt present prior to admission Chronic kidney disease -baseline Cr appears to be around 1.5 Onychodystrophy Chronic anticoagulation Eliquis Osteoarthritis of spine Hyperlipidemia Depression Anemia Foot drop, left H/O acute myocardial infarction Surgical History (Updated 02/25/25 @ 00:01 by IHSAN Johnson) Peritoneal dialysis catheter in situ (06/15/21) History of appendectomy 1995 History of excision of mass 06/08/2019: Subcutaneous mass on back History of removal of Port-a-Cath Port-A-Cath in place H/O vasectomy Hx of cholecystectomy History of coronary artery stent placement 5x H/O skin graft History of inguinal hernia repair, bilateral 2000 H/O removal of testicle left H/O colonoscopy (11/14/20) 08/2015 H/O esophagogastroduodenoscopy (11/14/20) 08/2015 Family History Grandfather Cancer skin cancer Parkinson disease Brother Hypertension Father Heart disease Mother Hypertension Stroke Aneurysm Grandmother Aneurysm Other Crohn's disease Denies family history of Anesthesia complication Bleeding disorder Social History (Updated 02/22/25 @ 19:12 by Jose Hightower MD) Smoking and tobacco/nicotine status: never used tobacco/nicotine Second hand smoke exposure: No Alcohol intake: former Year of sobriety/quit date alcohol: 2016 Former alcohol use details: Only holidays - last use 05.19.2015 Substance/Drug Use: former Date of last use: Young adult Former substance use details: Remote history of weed and cocaine brief Additional social history: Patient wants full CODE STATUS as discussed today with Jose Hightower MD on 02/22/2025 his next of kin is his Chantale and if she is unavailable then daughter Inge Adopted: No Caregiver/support person: No Lives independently: Yes Household members: spouse Housing: Apartment Marital status: Number of children: 2 Number of grandchildren: 0 Highest education level completed: High School Graduate service: No Current occupational status: disabled 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 Skin: Warm, dry. Head: Normocephalic, atraumatic. Neck: Supple, trachea midline. Eye: Extraocular movements are intact. Ears, nose, mouth and throat: mucosa moist. Cardiovascular: Regular, Normal peripheral perfusion. Respiratory: Lungs are clear to auscultation, respirations are non-labored, breath sounds are equal, Symmetrical chest wall expansion. Gastrointestinal: Soft, Nontender, Non distended Musculoskeletal: Normal ROM, no deformity. Neurological: Alert and oriented, No focal neurological deficit observed. Psychiatric: Cooperative, appropriate mood & affect. Course Vital Signs: Vital signs: Vital Signs Temperature 97.9 F 02/25/25 13:56 Pulse Rate 64 02/25/25 16:30 Respiratory Rate 17 02/25/25 16:30 Blood Pressure 91/46 02/25/25 16:19 Pulse Oximetry 99 02/25/25 16:30 Oxygen Delivery Me thod Nasal Cannula 02/25/25 16:30 Oxygen Flow Rate 2 02/25/25 16:30 MDM - Altered Mental Status Medical Decision Making Medical decision making: Differential diagnosis including but not limited to and based on the above HPI, review of systems and physical exam: In this patient with altered mental status: Stroke. Hypoglycemia. Metabolic encephalopathy. Infections such as pneumonia, urinary tract infection, Covid-19, Influenza. Electrolyte abnormalities such as hypernatremia. Renal failure / uremia. Hepatic encephalopathy. Hypoxemia. Hypercapnic respiratory failure. Psychosis. Drug or alcohol intoxication. Medication overdose. Orders placed to evaluate differential diagnosis based on the above differential, HPI and physical exam EKG: Time 1411. Rate 58. Sinus bradycardia, nonspecific ST changes, no ectopy, normal [place] & QRS intervals, This was reviewed and interpreted by myself the ER physician at 1415 Chest x-ray: AICD and sternotomy wires present read as no acute pathology but he does have basilar areas of atelectasis and/or airspace disease is greater on the left. This was reviewed and interpreted by myself the emergency room physician. I also reviewed the radiology report. Lab Review: Laboratory results were reviewed and interpreted by myself the emergency room physician. New leukocytosis with a white count of 17,000 it is a bit left shifted. Stable anemia. BUN and creatinine are 24 and 2.3 which would be expected in this dialysis patient. His potassium is normal at 3.9. I reviewed the patient's medical record. 54-year-old man with history of end-stage renal disease on dialysis, coronary artery disease, DVT with chronic anticoagulation on Eliquis, type 2 diabetes mellitus and hypertension.. Patient was discharged from the hospital just yesterday. He had been treated for a wide-complex tachycardia, atrial fibrillation with RVR, hypertension. Reexamination: Patient with sats in the low 90s on 2 L nasal cannula. No increased work of breathing at this time. Blood pressure remains a little bit soft. It is come up a couple times. Consultation: I spoke with Dr. Brown who is on-call for the hospitalist service. He agrees to admission to observation. The patient is requiring a little bit of oxygen. He does have this at home. But he is complaining of malaise and insists that he needs to be admitted today. Assessment and plan: Upper respiratory infection Bronchitis versus pneumonia End-stage renal disease on dialysis Malaise Leukocytosis ?IV azithromycin and Rocephin. 500 mL liter normal saline bolus. His blood pressure has been labile for some time now and he is a dialysis patient so I did not give a full septic bolus. -I discussed the patient with the hospitalist on-call who is admitting the patient. - Discussed findings and plan with patient. Answered any questions. - All laboratory values were reviewed and interpreted personally by myself, the ER physician - All imaging was reviewed and interpreted personally by myself, the ER physician. - Evaluation and treatment of this problem were appropriate in the emergency setting Lab Data 02/25/25 14:20 02/25/25 14:20 Radiology Impressions Chest/Abdomen X-ray 02/25/25 13:59 IMPRESSION: No acute abdominal pathology. Large amount of colonic stool. Basilar areas of atelectasis and/or airspace disease, greater on the left. Laboratory Results WBC 17.47 10^3/uL (3.29-11.43) H 02/25/25 14:20 RBC 3.26 10^6/uL (3.85-5.65) L 02/25/25 14:20 Hgb 10.70 g/dL (11.27-16.99) L 02/25/25 14:20 Hct 30.8 % (37-53) L 02/25/25 14:20 MCV 94.5 fl (82-101) 02/25/25 14:20 MCH 32.8 pg (27-33) 02/25/25 14:20 MCHC 34.7 g/dL (30-55) 02/25/25 14:20 RDW 13.1 % (12.1-15.1) 02/25/25 14:20 Plt Count 302 10^3/cmm (157-399) 02/25/25 14:20 MPV 9.2 fL (7.4-10.4) 02/25/25 14:20 Neut % (Auto) 86.3 % 02/25/25 14:20 Lymph % (Auto) 6.7 % 02/25/25 14:20 [place] % (Auto) 5.6 % 02/25/25 14:20 Eos % (Auto) 0.5 % 02/25/25 14:20 Baso % (Auto) 0.2 % 02/25/25 14:20 Neut # (Auto) 15.09 10^3/uL (1.8-7.7) H 02/25/25 14:20 Lymph # (Auto) 1.2 10^3/uL (0.8-4.8) 02/25/25 14:20 [place] # (Auto) 1.0 10^3/uL (0.2-0.9) H 02/25/25 14:20 Eos # (Auto) 0.1 10^3/uL (0.0-0.8) 02/25/25 14:20 Baso # (Auto) 0.0 10^3/uL (0.0-0.1) 02/25/25 14:20 Nucleated RBC % (auto) 0 % 02/25/25 14:20 Nucleated RBCs # 0.0 /100WBC 02/25/25 14:20 Specimen Type Arterial 02/25/25 16:15 Sample Site Brachial, right 02/25/25 16:15 ABG pH 7.44 (7.35-7.45) 02/25/25 16:15 ABG pCO2 43.7 mmHg (35-45) 02/25/25 16:15 ABG pO2 53.8 mmHg (80.0-100.0) L 02/25/25 16:15 ABG PO2/FiO2 Ratio 256 02/25/25 16:15 ABG HCO3 29.6 mmol/L (22-26) H 02/25/25 16:15 ABG O2 Saturation 87.6 02/25/25 16:15 ABG Base Excess 4.9 mmol/L (-2.0-2.0) H 02/25/25 16:15 Scottie Test N/a 02/25/25 16:15 A-a O2 Gradient 5.7 mmHg (5-10) 02/25/25 16:15 Hematocrit 33.0 % (42-52) L 02/25/25 16:15 Hgb O2 Saturation 86.1 % (95-100) L 02/25/25 16:15 Carboxyhemoglobin 0.8 %THgb (0.4-20.1) 02/25/25 16:15 Methemoglobin 1.0 % (0.4-1.5) 02/25/25 16:15 Total Hemoglobin 10.8 g/dL (14-18) L 02/25/25 16:15 Sodium 135.0 mmol/L (131-143) 02/25/25 16:15 Potassium 3.8 mmol/L (3.5-5.0) 02/25/25 16:15 Glucose 196.0 mg/dL (70-115) H 02/25/25 16:15 Ionized Calcium 1.1 mmol/L (1.1-1.4) 02/25/25 16:15 O2 Delivery Device Room air 02/25/25 16:15 FiO2 21.0 % 02/25/25 16:15 Tools Developer ID [id number] 02/25/25 16:15 Sodium 134 mmol/L (136-145) L 02/25/25 14:20 Potassium 3.9 mmol/L (3.5-5.1) 02/25/25 14:20 Chloride 95 mmol/L (98-107) L 02/25/25 14:20 Carbon Dioxide 28 mmol/L (22-29) 02/25/25 14:20 Anion Gap 14.9 (5-19) 02/25/25 14:20 BUN 24 mg/dL (6-20) H 02/25/25 14:20 Creatinine 2.3 mg/dL (0.7-1.2) H 02/25/25 14:20 GFR Calculation 29.6 mL/min (90-130) L 02/25/25 14:20 Glucose 221 mg/dL (65-115) H 02/25/25 14:20 Calculated Osmolality 289 mOsm/kg (285-295) 02/25/25 14:20 Lactic Acid 1.4 mmol/L (0.5-2.2) 02/25/25 14:20 Calcium 8.5 mg/dL (8.5-10.5) 02/25/25 14:20 Total Bilirubin 0.7 mg/dL (0.15-1.2) 02/25/25 14:20 AST 19 U/L (0-40) 02/25/25 14:20 ALT 14 U/L (0-41) 02/25/25 14:20 Alkaline Phosphatase 98 U/L (40-130) 02/25/25 14:20 Total Protein 6.4 g/dL (6.6-8.7) L 02/25/25 14:20 Albumin 3.6 g/dL (3.5-5.2) 02/25/25 14:20 Globulin 2.8 g/dL (1.3-4.6) 02/25/25 14:20 All radiology interpretation(s) finalized by discharge Discharge Plan Discharge Patient Disposition: Placed in Observation Clinical Impression: Bronchitis, ESRD (end stage renal disease), Labile blood pressure, Hypoxemia Discharge Diet: Usual diet Discharge Activity: Increase activity as tolerated Coding Level of Care Code ED Nursing Surgical Services Director for Aaron Irene
[2025-02-25 14:31] LABS: Hematocrit 30.8 % (37-53); Hemoglobin 10.70 g/dL (11.27-16.99); Mean Corpuscular HGB Conc 34.7 g/dL (30-55); Mean Corpuscular Hemoglobin 32.8 pg (27-33); Mean Corpuscular Volume 94.5 fl (82-101); Nucleated Red Blood Cells % 0 %; Platelet Count 302 10^3/cmm (157-399); Red Blood Count 3.26 10^6/uL (3.85-5.65); White Blood Count 17.47 10^3/uL (3.29-11.43)
[2025-02-25 14:49] LABS: Lactic Sepsis W/Reflex 1.4 mmol/L (0.5-2.2)
[2025-02-25 14:51] LABS: Alanine Aminotransferase 14 U/L (0-41); Albumin Level 3.6 g/dL (3.5-5.2); Alkaline Phosphatase 98 U/L (40-130); Anion Gap 14.9 (5-19); Aspartate Amino Transferase 19 U/L (0-40); Blood Urea Nitrogen 24 mg/dL (6-20); Calcium 8.5 mg/dL (8.5-10.5); Carbon Dioxide 28 mmol/L (22-29); Chloride 95 mmol/L (98-107); Creatinine Clr Calc Pharmacy 37.5841; Globulin 2.8 g/dL (1.3-4.6); Glucose 221 mg/dL (65-115); Osmolality Calculated 289 mOsm/kg (285-295); Potassium 3.9 mmol/L (3.5-5.1); Sodium 134 mmol/L (136-145); Total Protein 6.4 g/dL (6.6-8.7)
--- NOTE | 2025-02-25 15:25 | PC.NURSE ---
pt refusing straight catheter, unable to give urine sample at this time.
[2025-02-25] MEDS: methylPREDNISolone sod succ 125 mg/2 mL INJ IVP (15:35)
--- NOTE | 2025-02-25 15:35 | PC.NURSE ---
discharge delayed d/t medication orders being placed at same time as discharge.
[2025-02-25] MEDS: cefTRIAXone 1,000 mg SDV 1000 MG IVP (16:16)
--- NOTE | 2025-02-25 16:19 | PC.NURSE ---
re-educated pt on need for UA, denies being able to give sample at this time, refusing straight cath.
[2025-02-25 16:30] LABS: ABG PCO2 43.7 mmHg (35-45); ABG PH Result 7.44 (7.35-7.45); Alveolar-Arterial Oxygen Gradi 5.7 mmHg (5-10); Arterial Blood Gas Hematocrit 33.0 % (42-52); Blood Gas Operator Identificat GD; Blood Gas Sample Site Brachial, right; Blood Gas Sample Type Arterial; Carboxyhemoglobin 0.8 %THgb (0.4-20.1); Glucose Level-ABG 196.0 mg/dL (70-115); HCO3 ABG 29.6 mmol/L (22-26); Ionized Calcium Level - ABG 1.1 mmol/L (1.1-1.4); Methemoglobin 1.0 % (0.4-1.5); Oxygen Saturation ABG 87.6; PO2 ABG 53.8 mmHg (80.0-100.0); PO2 FiO2 Ratio Arterial Blood 256; Potassium Level - ABG 3.8 mmol/L (3.5-5.0); Sodium Level - ABG 135.0 mmol/L (131-143)
[2025-02-25 17:23] LABS: Respiratory Syncytial Virus Ce NEGATIVE (Negative); SARS-CoV-2 PCR NEGATIVE (Negative)
--- NOTE | 2025-02-25 17:34 | PM.HP ---
Providers/Chief Complaint Admitting Physician: Jose Hightower MD Primary Care Provider: Dez Evans MD Chief Complaint: ams History of Present Illness Rei Queen II is a 54 year old male with recent mid to distal RCA stent had A-fib RVR treated with amiodarone. Started on Eliquis. Comes in with cough raspy breathing mild hypoxemia and cough productive of brownish-red phlegm occasional green. He had dialysis today and was sent into the emergency department. He is companied by his Chantale who reports that patient had PE in the past and is afraid of patient having more pulmonary emboli. Patient states he did obtain the Eliquis and has been taking it faithfully. He has been on Eliquis in the past including prior to last admission 02/22/2025. Patient reports temperature of 100.2 last evening taken axillary Medications/Allergies Home Medications ?Medication ?Instructions ?Recorded ?Confirmed ?Last Taken ?Type diphenhydramine HCl 25 mg tablet 50 mg PO DAILY PRN Allergy Symptoms 05/02/23 02/25/25 12/11/24 07:00 History (Benadryl Allergy) insulin lispro 100 unit/mL See Rx Instructions .Route .COMPLEX 05/02/23 02/25/25 02/25/25 History subcutaneous pen (Humalog KwikPen (U-100) Insulin) nitroglycerin 0.4 mg sublingual 0.4 mg sublingual Q5M PRN Chest 08/27/23 02/25/25 02/22/25 08:00 Rx tablet (Nitrostat) Pain #25 tabs vit B,C-folic ac 800 mcg-zinc 12.5 1 tab PO BEDTIME 10/29/23 02/25/25 02/24/25 History mg-selen-D3 2,000 unit-vit E tablet (RenaPlex-D) tizanidine 2 mg tablet 2 mg PO BID PRN Muscle Spasm 03/24/24 02/25/25 02/20/25 History promethazine 25 mg tablet 25 mg PO Q6H PRN Nausea 04/21/24 02/25/25 02/20/25 History acetaminophen 500 mg tablet 1,000 mg PO QID PRN Pain 06/04/24 02/25/25 12/05/24 History (Tylenol Extra Strength) apixaban 2.5 mg tablet (Eliquis) 2.5 mg PO BID 12/08/24 02/25/25 02/25/25 History gabapentin 300 mg capsule 300 mg PO BID 12/08/24 02/25/25 02/25/25 History insulin degludec 200 unit/mL (3 40 unit SUBCUT QAM 12/08/24 02/25/25 02/25/25 History mL) subcutaneous pen (Tresiba FlexTouch U-200 insulin) levothyroxine 88 mcg tablet 88 mcg PO QAM 12/08/24 02/25/25 02/25/25 History ranolazine 1,000 mg 1,000 mg PO BID 12/08/24 02/25/25 02/25/25 History tablet,extended release,12 hr blood-glucose sensor ([employer] G7 #9 ea 12/14/24 02/25/25 Unknown Rx Sensor device) semaglutide 2 mg/dose (8 mg/3 mL) 2 mg (0.75 mL) SUBCUT Q7D #9 mL 01/01/25 02/25/25 02/19/25 Rx subcutaneous pen injector (Ozempic) hydrocodone 7.5 mg-acetaminophen 1 tab PO Q6H PRN Pain 01/07/25 02/25/25 02/20/25 History 325 mg tablet bumetanide 2 mg tablet 2 mg PO DAILY 02/22/25 02/25/25 02/25/25 History sacubitril 24 mg-valsartan 26 mg 2 tab PO DAILY 02/22/25 02/25/25 02/25/25 History tablet (Entresto) trazodone 100 mg tablet 300 mg PO BEDTIME PRN insomnia 02/22/25 02/25/25 02/20/25 21:00 History amiodarone 200 mg tablet (Pacerone) See Rx Instructions .Route 02/24/25 02/25/25 02/25/25 Rx .COMPLEX #120 tabs atorvastatin 80 mg tablet (Lipitor) 80 mg PO BEDTIME #30 tabs 02/24/25 02/25/25 02/24/25 Rx clopidogrel 75 mg tablet 75 mg PO DAILY #100 tabs 02/24/25 02/25/25 02/25/25 Rx metoprolol tartrate 25 mg tablet 25 mg PO BID@0900,2100 #60 tabs 02/24/25 02/25/25 02/25/25 Rx azithromycin 250 mg tablet See Rx Instructions PO .COMPLEX #6 02/25/25 Unknown Rx (Zithromax Z-Markos) tabs dorzolamide 22.3 mg-timolol 6.8 1 drp ophthalmic (eye) BID 02/25/25 02/25/25 02/25/25 History mg/mL eye drops prednisone 20 mg tablet 40 mg (2 x 20 mg) PO DAILY 5 days 02/25/25 Unknown Rx #10 tabs testosterone cypionate 200 mg/mL 200 mg IM .Q30D 02/25/25 02/25/25 02/05/25 History intramuscular oil Allergies Allergy/AdvReac Type Severity Reaction Status Date / Time Iodinated Contrast Media Allergy Severe ALGY-Difficulty Verified 02/09/25 14:20 Breathing iodine Allergy Severe ALGY-Difficulty Verified 02/09/25 14:20 Breathing metoclopramide (From Reglan) Allergy Severe ALGY-Difficulty Verified 02/09/25 14:20 Breathing nalbuphine (From Nubain) Allergy Severe ADR-Diarrhe Verified 02/09/25 14:20 a naproxen (From Naprosyn) Allergy Severe ADR-Vomitin Verified 02/09/25 14:20 g Sulfa (Sulfonamide Allergy Severe ALGY-Difficulty Verified 02/09/25 14:20 Antibiotics) Breathing ketorolac Allergy Intermediate ADR-Nausea Verified 02/09/25 14:20 ondansetron (From Zofran) Allergy Intermediate ADR-Abdominal Verified 02/09/25 14:20 Pain prochlorperazine (From Allergy Intermediate ADR-Irritab Verified 02/09/25 14:20 Compazine) le codeine AdvReac Severe ALGY-Anaphy Verified 02/09/25 14:20 laxis haloperidol (From Haldol) AdvReac Intermediate ADR-Irritab Verified 02/09/25 14:20 le PFSH Acute PFSH: Medical History (Updated 02/25/25 @ 17:41 by Jose Hightower MD) Ischemic cardiomyopathy Contrast media allergy Thoracic disc disease Non-pressure chronic ulcer of other part of left foot limited to breakdown of skin Bilateral pes planus Hammertoe of left foot Rupture of extensor tendon of foot Kidney failure Type 2 diabetes mellitus with other circulatory complication, 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 artery with other forms of angina pectoris hx of CAD with prior stenting of proximal LAD, LCx, RCA End stage renal disease on dialysis Hypothyroidism Generalized anxiety disorder Major depressive disorder, recurrent severe without psychotic features Pericarditis Essential hypertension Psychiatric care 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 mellitus CRF (chronic renal failure) Chronic right SI joint pain Chronic systolic heart failure UTI (urinary tract infection) Peripheral arterial disease PVD (peripheral vascular disease) Worsening angina Angina at rest Uremic encephalopathy D-dimer, elevated Acute on chronic congestive heart failure History of pulmonary embolism Acute kidney injury superimposed on CKD GERD (gastroesophageal reflux disease) Alcohol use disorder, moderate, in sustained remission DVT (deep venous thrombosis) (~03/2020) Proximal left subclavian, basilic and brachial veins, started eliquis this stay, felt present prior to admission Chronic kidney disease -baseline Cr appears to be around 1.5 Onychodystrophy Chronic anticoagulation Eliquis Osteoarthritis of spine Hyperlipidemia Depression Anemia Foot drop, left H/O acute myocardial infarction Surgical History (Updated 02/25/25 @ 00:01 by IHSAN Johnson) Peritoneal dialysis catheter in situ (06/15/21) History of appendectomy 1995 History of excision of mass 06/08/2019: Subcutaneous mass on back History of removal of Port-a-Cath Port-A-Cath in place H/O vasectomy Hx of cholecystectomy History of coronary artery stent placement 5x H/O skin graft History of inguinal hernia repair, bilateral 2000 H/O removal of testicle left H/O colonoscopy (11/14/20) 08/2015 H/O esophagogastroduodenoscopy (11/14/20) 08/2015 Family History Grandfather Cancer skin cancer Parkinson disease Brother Hypertension Father Heart disease Mother Hypertension Stroke Aneurysm Grandmother Aneurysm Other Crohn's disease Denies family history of Anesthesia complication Bleeding disorder Social History (Updated 02/25/25 @ 17:37 by Jose Hightower MD) Smoking and tobacco/nicotine status: never used tobacco/nicotine Second hand smoke exposure: No Alcohol intake: former Year of sobriety/quit date alcohol: 2016 Former alcohol use details: Only holidays - last use 05.19.2015 Substance/Drug Use: former Date of last use: Young adult Former substance use details: Remote history of weed and cocaine brief Additional social history: Patient wants full CODE STATUS as discussed today with Jose Hightower MD on 02/25/2025 with his next of kin Chantale present at bedside Adopted: No Caregiver/support person: No Lives independently: Yes Household members: spouse Housing: Apartment Marital status: Number of children: 2 Number of grandchildren: 0 Highest education level completed: High School Graduate service: No Current occupational status: disabled 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 Pets and animals: Yes Pets & animals: dog(s) Leisure activites: games and other Leisure activities details: watching TV Sexually active: Yes Do you think of yourself as: Straight/Heterosexual Current gender identity: Male Shannon/Synagogue: [employer] Special shannon needs: No Agree to transfusion: Yes Vitals/I&O/Wt Last Vital Signs Temp 97.9 F 02/25/25 13:56 Pulse 64 02/25/25 17:15 Resp 17 02/25/25 16:30 BP 94/49 02/25/25 17:15 Pulse Ox 95 02/25/25 17:15 O2 Del Method Nasal Cannula 02/25/25 16:30 O2 Flow Rate 2 02/25/25 16:30 Weight last 48 hrs Weight 92.986 kg Physical Exam Narrative: General well-developed well-nourished obese male in no acute cardiopulmonary distress CV regular rate and rhythm Lungs crackles heard in bases left greater than right and completely clear with deep breath Abdomen positive bowel tones soft obese nontender Calves no tenderness cords or pretibial edema Skin warm and dry Data 02/25/25 14:20 02/25/25 14:20 Micro: Microbiology 02/25/25 14:46 Blood Culture - Preliminary Blood SPECIMEN COLLECTED 02/25/25 14:20 Blood Culture - Preliminary Blood SPECIMEN COLLECTED A&P Assessment and plan 1. Bronchitis: Continue with Rocephin and azithromycin follow CBC in the morning 2. Hypoxemia: Continue with oxygen 3. Ischemic cardiomyopathy: Stable 4. End stage renal disease on dialysis: If still here on Saturday will require consultation for dialysis PDMP PDMP Reviewed: Not Reviewed Attestations Medical Necessity Statement*: Patient is admitted to hospital observation with IV antibiotics and will anticipate potential discharge in 1 to 2 days Coding Level of Care Code 58355 Diagnoses Bronchitis J40 Hypoxemia R09.02 Ischemic cardiomyopathy I25.5 End stage renal disease on dialysis N18.6; Z99.2 Time Spent (min) 30
[2025-02-25] MEDS: HYDROcodone-acetaminophen 7.5-325 mg Tablet 1 TAB PO (22:02)
[2025-02-26 04:00] VITALS: BP 102/60; PULSE 72; RESP 16; TEMP 36.9; O2SAT 95
[2025-02-26] MEDS: HYDROcodone-acetaminophen 7.5-325 mg Tablet 1 TAB PO ×2 (04:42→17:28)
[2025-02-26] MEDS: APIXABAN 2.5 MG TABLET PO ×2 (04:45→17:28)
[2025-02-26] MEDS: ranolazine (12HR) 500 mg Tablet 1000 MG PO ×2 (04:45→17:28)
[2025-02-26] MEDS: cefTRIAXone 1,000 mg SDV 1000 MG IVP ×2 (04:45→04:52)
[2025-02-26 04:47] LABS: Hematocrit 29.5 % (37-53); Hemoglobin 9.90 g/dL (11.27-16.99); Mean Corpuscular HGB Conc 33.6 g/dL (30-55); Mean Corpuscular Hemoglobin 33.3 pg (27-33); Mean Corpuscular Volume 99.3 fl (82-101); Nucleated Red Blood Cells % 0 %; Platelet Count 260 10^3/cmm (157-399); Red Blood Count 2.97 10^6/uL (3.85-5.65); White Blood Count 12.70 10^3/uL (3.29-11.43)
[2025-02-26] MEDS: dorzolamide/timolol Op Soln 10 mL Btl 1 DROP EYE-BOTH (04:51)
[2025-02-26] MEDS: insulin glargine 100 units/1 mL 32 UNIT SUBCUT (04:53)
[2025-02-26 05:11] LABS: Anion Gap 20.8 (5-19); Blood Urea Nitrogen 51 mg/dL (6-20); Calcium 8.1 mg/dL (8.5-10.5); Carbon Dioxide 23 mmol/L (22-29); Chloride 91 mmol/L (98-107); Creatinine Clr Calc Pharmacy 22.7730; Osmolality Calculated 308 mOsm/kg (285-295); Potassium 4.8 mmol/L (3.5-5.1); Sodium 130 mmol/L (136-145)
[2025-02-26 05:29] LABS: Glucose 538 mg/dL (65-115)
[2025-02-26 08:00] VITALS: BP 109/65; PULSE 58; RESP 14; TEMP 36.3; O2SAT 94
[2025-02-26 11:35] VITALS: BP 80/58; PULSE 57; RESP 18; TEMP 36.3; O2SAT 91
--- NOTE | 2025-02-26 11:47 | P.PN_ITS ---
Subjective 2 Subjective: 54-year-old male admitted with bronchitis possible pneumonia yesterday reports his sputum is still brown and bloody and he had cough overnight. He reports going discomfort from his angiogram site that he would like single dose of IV pain meds. Nurses report he has been asking for IV pain meds throughout the night. Patient is companied by his Chantale. Vitals/I&O/Wt Last Vital Signs Temp 97.4 F L 02/26/25 11:35 Pulse 57 L 02/26/25 11:35 Resp 18 02/26/25 11:35 BP 80/58 02/26/25 11:35 Pulse Ox 91 02/26/25 11:35 O2 Del Method Room Air 02/26/25 11:35 O2 Flow Rate 2 02/25/25 16:30 02/25/25 02/26/25 02/26/25 22:59 06:59 14:59 Intake Total 990 / 990 240 / 240 Balance 990 / 990 240 / 240 Weight last 48 hrs Weight 98.883 kg Weight 98.067 kg Weight 92.986 kg Physical Exam 2 Narrative: General well-developed well-nourished obese male in no acute cardiopulmonary distress CV regular rate and rhythm Lungs crackles heard in bases left greater than right and completely clear with deep breath Abdomen positive bowel tones soft obese nontender Calves no tenderness cords or pretibial edema Skin warm and dry Right groin was examined and no dressing is in place there is no ecchymosis pulsatile mass or unusual tenderness to suggest vascular injury that requires intervention Data 02/26/25 04:29 02/26/25 04:29 Micro: Microbiology 02/25/25 14:46 Blood Culture - Preliminary Blood SPECIMEN COLLECTED 02/25/25 14:20 Blood Culture - Preliminary Blood SPECIMEN COLLECTED A&P Assessment and plan 1. Left lower lobe pneumonia: Continue with Rocephin and azithromycin follow CBC in the morning. Chest x-ray showed left basilar airspace disease and right basilar atelectasis consistent with pneumonia Continue with Plavix and apixaban monitor for significant hemoptysis. Anticipate this should improve with treatment of his underlying pneumonia. Will give a dose of Decadron 4 mg daily for inflammation. Limited nebulizer treatments due to history of A-fib 2. Hypoxemia: Continue with oxygen. As above 3. Ischemic cardiomyopathy: Stable. Recent mid to distal RCA stent placed last hospitalization continue with Plavix 4. End stage renal disease on dialysis: I consulted Dr. Gibson for dialysis tomorrow PDMP PDMP Reviewed: Not Reviewed Attestations 2 Medical Necessity Statement*: Patient remains hospitalized for pneumonia treatment and will require dialysis tomorrow. Coding Level of Care Code 77559 Diagnoses Left lower lobe pneumonia J18.9 Hypoxemia R09.02 Ischemic cardiomyopathy I25.5 End stage renal disease on dialysis N18.6; Z99.2 Time Spent (min) 35
[2025-02-26 15:38] VITALS: BP 104/39; PULSE 57; RESP 18; TEMP 36.3; O2SAT 97
--- NOTE | 2025-02-26 18:02 | PM.CONSULT ---
Providers/Reason For Consult Consulting Physician/Specialty*: [facility]/Nephrology Reason for Consult*: esrd Attending Physician: Jose Hightower MD Primary Care Provider: Dez Evans MD History of Present Illness History of Present Illness patient is a 54-year-old male with past medical history significant for end-stage renal disease on dialysis, coronary artery disease with multiple PCI's in the past, cardiomyopathy CHF, who presented to the hospital with a complaint of cough , and SOB . Albuterol report patient admitted for bronchitis. Labs reviewed. Review of Systems Narrative: Negative Medications/Allergies Home Medications ?Medication ?Instructions ?Recorded ?Confirmed ?Last Taken ?Type diphenhydramine HCl 25 mg tablet 50 mg PO DAILY PRN Allergy Symptoms 05/02/23 02/25/25 12/11/24 07:00 History (Benadryl Allergy) insulin lispro 100 unit/mL See Rx Instructions .Route .COMPLEX 05/02/23 02/25/25 02/25/25 History subcutaneous pen (Humalog KwikPen (U-100) Insulin) nitroglycerin 0.4 mg sublingual 0.4 mg sublingual Q5M PRN Chest 08/27/23 02/25/25 02/22/25 08:00 Rx tablet (Nitrostat) Pain #25 tabs vit B,C-folic ac 800 mcg-zinc 12.5 1 tab PO BEDTIME 10/29/23 02/25/25 02/24/25 History mg-selen-D3 2,000 unit-vit E tablet (RenaPlex-D) tizanidine 2 mg tablet 2 mg PO BID PRN Muscle Spasm 03/24/24 02/25/25 02/20/25 History promethazine 25 mg tablet 25 mg PO Q6H PRN Nausea 04/21/24 02/25/25 02/20/25 History acetaminophen 500 mg tablet 1,000 mg PO QID PRN Pain 06/04/24 02/25/25 12/05/24 History (Tylenol Extra Strength) apixaban 2.5 mg tablet (Eliquis) 2.5 mg PO BID 12/08/24 02/25/25 02/25/25 History gabapentin 300 mg capsule 300 mg PO BID 12/08/24 02/25/25 02/25/25 History insulin degludec 200 unit/mL (3 40 unit SUBCUT QAM 12/08/24 02/25/25 02/25/25 History mL) subcutaneous pen (Tresiba FlexTouch U-200 insulin) levothyroxine 88 mcg tablet 88 mcg PO QAM 12/08/24 02/25/25 02/25/25 History ranolazine 1,000 mg 1,000 mg PO BID 12/08/24 02/25/25 02/25/25 History tablet,extended release,12 hr blood-glucose sensor (Dexcom G7 #9 ea 12/14/24 02/25/25 Unknown Rx Sensor device) semaglutide 2 mg/dose (8 mg/3 mL) 2 mg (0.75 mL) SUBCUT Q7D #9 mL 01/01/25 02/25/25 02/19/25 Rx subcutaneous pen injector (Ozempic) hydrocodone 7.5 mg-acetaminophen 1 tab PO Q6H PRN Pain 01/07/25 02/25/25 02/20/25 History 325 mg tablet bumetanide 2 mg tablet 2 mg PO DAILY 02/22/25 02/25/25 02/25/25 History sacubitril 24 mg-valsartan 26 mg 2 tab PO DAILY 02/22/25 02/25/25 02/25/25 History tablet (Entresto) trazodone 100 mg tablet 300 mg PO BEDTIME PRN insomnia 02/22/25 02/25/25 02/20/25 21:00 History amiodarone 200 mg tablet (Pacerone) See Rx Instructions .Route 02/24/25 02/25/25 02/25/25 Rx .COMPLEX #120 tabs atorvastatin 80 mg tablet (Lipitor) 80 mg PO BEDTIME #30 tabs 02/24/25 02/25/25 02/24/25 Rx clopidogrel 75 mg tablet 75 mg PO DAILY #100 tabs 02/24/25 02/25/25 02/25/25 Rx metoprolol tartrate 25 mg tablet 25 mg PO BID@0900,2100 #60 tabs 02/24/25 02/25/25 02/25/25 Rx azithromycin 250 mg tablet See Rx Instructions PO .COMPLEX #6 02/25/25 Unknown Rx (Zithromax Z-Markos) tabs dorzolamide 22.3 mg-timolol 6.8 1 drp ophthalmic (eye) BID 02/25/25 02/25/25 02/25/25 History mg/mL eye drops prednisone 20 mg tablet 40 mg (2 x 20 mg) PO DAILY 5 days 02/25/25 Unknown Rx #10 tabs testosterone cypionate 200 mg/mL 200 mg IM .Q30D 02/25/25 02/25/25 02/05/25 History intramuscular oil Allergies Allergy/AdvReac Type Severity Reaction Status Date / Time Iodinated Contrast Media Allergy Severe ALGY-Difficulty Verified 02/09/25 14:20 Breathing iodine Allergy Severe ALGY-Difficulty Verified 02/09/25 14:20 Breathing metoclopramide (From Reglan) Allergy Severe ALGY-Difficulty Verified 02/09/25 14:20 Breathing nalbuphine (From Nubain) Allergy Severe ADR-Diarrhe Verified 02/09/25 14:20 a naproxen (From Naprosyn) Allergy Severe ADR-Vomitin Verified 02/09/25 14:20 g Sulfa (Sulfonamide Allergy Severe ALGY-Difficulty Verified 02/09/25 14:20 Antibiotics) Breathing ketorolac Allergy Intermediate ADR-Nausea Verified 02/09/25 14:20 ondansetron (From Zofran) Allergy Intermediate ADR-Abdominal Verified 02/09/25 14:20 Pain prochlorperazine (From Allergy Intermediate ADR-Irritab Verified 02/09/25 14:20 Compazine) le codeine AdvReac Severe ALGY-Anaphy Verified 02/09/25 14:20 laxis haloperidol (From Haldol) AdvReac Intermediate ADR-Irritab Verified 02/09/25 14:20 le Current Medications Generic Name Dose Route Start Last Admin Trade Name Freq PRN Reason Stop Dose Admin Hydrocodone Bitart/Acetaminophen 1 tab 02/25/25 17:42 02/26/25 17:28 Hydrocodone-Acetaminophen 7.5-325 Mg Tablet PO 1 tab Q6H PRN Administration PAIN Apixaban 2.5 mg 02/26/25 05:00 02/26/25 17:28 Apixaban 2.5 Mg Tablet PO 2.5 mg BID RANDY Administration Atorvastatin Calcium 80 mg 02/25/25 21:00 02/25/25 22:03 Atorvastatin 40 Mg Tablet PO 80 mg BEDTIME RANDY Administration Azithromycin 250 mg 02/26/25 05:00 02/26/25 04:44 Azithromycin 250 Mg Tablet PO 250 mg DAILY RANDY Administration Protocol Bumetanide 2 mg 02/26/25 05:00 02/26/25 04:44 Bumetanide 1 Mg Tablet PO 2 mg DAILY RANDY Administration Ceftriaxone Sodium 1,000 mg 02/26/25 05:00 02/26/25 04:52 Ceftriaxone 1,000 Mg Sdv IVP 1,000 mg DAILY RANDY Administration Protocol Clopidogrel Bisulfate 75 mg 02/26/25 05:00 02/26/25 04:51 Clopidogrel 75 Mg Tablet PO 75 mg DAILY RANDY Administration Dorzolamide/Timolol 1 drop 02/26/25 05:00 02/26/25 04:51 Dorzolamide/Timolol Op Soln 10 Ml Btl EYE-BOTH 1 drop BID RANDY Administration Gabapentin 300 mg 02/26/25 05:00 02/26/25 17:28 Gabapentin 300 Mg Capsule PO 300 mg BID RANDY Administration Insulin Glargine 32 unit 02/26/25 05:00 02/26/25 04:53 Insulin Glargine 100 Units/1 Ml SUBCUT 32 unit QAM RANDY Administration Insulin Human Lispro 0 unit 02/26/25 08:00 02/26/25 17:27 Insulin Lispro 100 Unit/1 Ml SUBCUT 14 unit WM&BEDTIME RANDY Administration Protocol Levothyroxine Sodium 88 mcg 02/26/25 05:00 02/26/25 04:45 Levothyroxine 88 Mcg Tablet PO 88 mcg QAM RANDY Administration Metoprolol Tartrate 25 mg 02/25/25 21:00 02/26/25 09:44 Metoprolol Tartrate 25 Mg Tablet PO 25 mg BID@0900,2100 RANDY Administration Ranolazine 1,000 mg 02/26/25 05:00 02/26/25 17:28 Ranolazine (12hr) 500 Mg Tablet PO 1,000 mg BID RANDY Administration Sacubitril/Valsartan 2 each 02/26/25 05:00 02/26/25 04:44 Sacubitril/Valsartan 24-26 Mg Tablet PO 2 each DAILY RANDY Administration Trazodone HCl 300 mg 02/25/25 17:42 02/25/25 22:03 Trazodone 100 Mg Tablet PO 300 mg BEDTIME PRN Administration INSOMNIA PFSH Acute PFSH: Medical History (Updated 02/26/25 @ 11:54 by Jose Hightower MD) Ischemic cardiomyopathy Contrast media allergy Thoracic disc disease Non-pressure chronic ulcer of other part of left foot limited to breakdown of skin Bilateral pes planus Hammertoe of left foot Rupture of extensor tendon of foot Kidney failure Type 2 diabetes mellitus with other circulatory complication, 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 Atherosclerotic heart disease of [place] coronary artery with other forms of angina pectoris hx of CAD with prior stenting of proximal LAD, LCx, RCA End stage renal disease on dialysis Hypothyroidism Generalized anxiety disorder Major depressive disorder, recurrent severe without psychotic features Pericarditis Essential hypertension Psychiatric care 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 mellitus CRF (chronic renal failure) Chronic right SI joint pain Chronic systolic heart failure UTI (urinary tract infection) Peripheral arterial disease PVD (peripheral vascular disease) Worsening angina Angina at rest Uremic encephalopathy D-dimer, elevated Acute on chronic congestive heart failure History of pulmonary embolism Acute kidney injury superimposed on CKD GERD (gastroesophageal reflux disease) Alcohol use disorder, moderate, in sustained remission DVT (deep venous thrombosis) (~03/2020) Proximal left subclavian, basilic and brachial veins, started eliquis this stay, felt present prior to admission Chronic kidney disease -baseline Cr appears to be around 1.5 Onychodystrophy Chronic anticoagulation Eliquis Osteoarthritis of spine Hyperlipidemia Depression Anemia Foot drop, left H/O acute myocardial infarction Surgical History (Updated 02/25/25 @ 00:01 by IHSAN Johnson) Peritoneal dialysis catheter in situ (06/15/21) History of appendectomy 1995 History of excision of mass 06/08/2019: Subcutaneous mass on back History of removal of Port-a-Cath Port-A-Cath in place H/O vasectomy Hx of cholecystectomy History of coronary artery stent placement 5x H/O skin graft History of inguinal hernia repair, bilateral 1999 H/O removal of testicle left H/O colonoscopy (11/14/20) 08/2015 H/O esophagogastroduodenoscopy (11/14/20) 08/2015 Family History Grandfather Cancer skin cancer Parkinson disease Brother Hypertension Father Heart disease Mother Hypertension Stroke Aneurysm Grandmother Aneurysm Other Crohn's disease Denies family history of Anesthesia complication Bleeding disorder Social History (Updated 02/25/25 @ 17:37 by Jose Hightower MD) Smoking and tobacco/nicotine status: never used tobacco/nicotine Second hand smoke exposure: No Alcohol intake: former Year of sobriety/quit date alcohol: 2015 Former alcohol use details: Only holidays - last use 05.19.2015 Substance/Drug Use: former Date of last use: Young adult Former substance use details: Remote history of weed and cocaine brief Additional social history: Patient wants full CODE STATUS as discussed today with Jose Hightower MD on 02/25/2025 with his next of kin Chantale present at bedside Adopted: No Caregiver/support person: No Lives independently: Yes Household members: spouse Housing: Apartment Marital status: Number of children: 2 Number of grandchildren: 0 Highest education level completed: High School Graduate service: No Current occupational status: disabled 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 Pets and animals: Yes Pets & animals: dog(s) Leisure activites: games and other Leisure activities details: watching TV Sexually active: Yes Do you think of yourself as: Straight/Heterosexual Current gender identity: Male Shannon/Alevism: Tenriism Special shannon needs: No Agree to transfusion: Yes Vitals/I&O/Wt Last Vital Signs Temp 97.3 F L 02/26/25 15:38 Pulse 57 L 02/26/25 15:38 Resp 18 02/26/25 15:38 BP 104/39 02/26/25 15:38 Pulse Ox 97 02/26/25 15:38 O2 Del Method Room Air 02/26/25 15:38 O2 Flow Rate 2 02/25/25 16:30 02/26/25 02/26/25 02/26/25 06:59 14:59 22:59 Intake Total 480 / 480 Balance 480 / 480 Weight last 48 hrs Weight 98.883 kg Weight 98.067 kg Weight 92.986 kg Physical Exam Narrative: awak , aelrt PEERLA NO JVD S1S2 RRR per report Lungs clear karissa Abd soft , non tender no edema Data 02/26/25 04:29 02/26/25 04:29 Micro: Microbiology 02/25/25 14:46 Blood Culture - Preliminary Blood NEGATIVE TO DATE 02/25/25 14:20 Blood Culture - Preliminary Blood NEGATIVE TO DATE A&P Assessment and plan 1. ESRD (end stage renal disease): Plan: 1. End-stage renal disease: Will continue dialysis per TTS schedule and ultrafiltration as tolerated 2. Hypertension , Resume home meds 3. History of coronary artery disease 4. Anemia: Hemoglobin at goal per CKD 5. MBD: Will resume home binders 6. Acute bronchitis Patient evaluated using audiovisual cart. Time spent 40 minutes PDMP PDMP Reviewed: Not Reviewed Consult Attestations Medical Necessity Statement: Per medicine team Coding Level of Care Code Acute Code for Chg Fwd Diagnoses ESRD (end stage renal disease) N18.6
[2025-02-26 19:53] VITALS: BP 140/75; PULSE 60; RESP 16; TEMP 36.3; O2SAT 98
[2025-02-27] VITALS (11 sets, daily range): BP systolic 85–143; BP diastolic 41–56; PULSE 52–88; RESP 14–19; TEMP 36.3–36.6; O2SAT 91–98
[2025-02-27 00:12] LABS: Glucose Urine UA 4+ (Normal); Nitrate Urine Negative (Negative); Specific Gravity, Urine 1.020 (1.005-1.030)
[2025-02-27] MEDS: ranolazine (12HR) 500 mg Tablet 1000 MG PO (05:21)
[2025-02-27] MEDS: APIXABAN 2.5 MG TABLET PO ×2 (05:21→17:14)
[2025-02-27] MEDS: dorzolamide/timolol Op Soln 10 mL Btl 1 DROP EYE-BOTH ×2 (05:22→17:12)
[2025-02-27] MEDS: insulin glargine 100 units/1 mL 32 UNIT SUBCUT (05:27)
[2025-02-27 08:09] LABS: Insulin ( Reference Lab Test) 19.1 uIU/mL
[2025-02-27 09:53] LABS: Hematocrit 30.9 % (37-53); Hemoglobin 10.70 g/dL (11.27-16.99); Mean Corpuscular HGB Conc 34.6 g/dL (30-55); Mean Corpuscular Hemoglobin 32.6 pg (27-33); Mean Corpuscular Volume 94.2 fl (82-101); Nucleated Red Blood Cells % 0 %; Platelet Count 334 10^3/cmm (157-399); Red Blood Count 3.28 10^6/uL (3.85-5.65); White Blood Count 16.09 10^3/uL (3.29-11.43)
[2025-02-27 10:13] LABS: Anion Gap 17.1 (5-19); Blood Urea Nitrogen 33 mg/dL (6-20); Calcium 8.9 mg/dL (8.5-10.5); Carbon Dioxide 25 mmol/L (22-29); Chloride 95 mmol/L (98-107); Creatinine Clr Calc Pharmacy 41.2938; Glucose 136 mg/dL (65-115); Magnesium 2.0 mg/dL (1.7-2.3); Osmolality Calculated 287 mOsm/kg (285-295); Potassium 3.1 mmol/L (3.5-5.1); Sodium 134 mmol/L (136-145)
[2025-02-27] MEDS: HYDROcodone-acetaminophen 7.5-325 mg Tablet 1 TAB PO (12:51)
--- NOTE | 2025-02-27 13:52 | P.PN_ITS ---
Subjective 2 Subjective: 54-year-old male admitted with bronchitis possible pneumonia states he is coughing up bloody sputum. He has been here for 2 days but has not been able to give us a sputum sample. Patient states he coughed up some bloody phlegm into a napkin yesterday. He has a sputum cup currently at bedside. Patient demonstrated a moist sounding cough but was not able to bring anything up Vitals/I&O/Wt Last Vital Signs Temp 97.5 F L 02/27/25 12:00 Pulse 52 L 02/27/25 12:00 Resp 16 02/27/25 12:00 BP 108/47 02/27/25 12:00 Pulse Ox 98 02/27/25 12:00 O2 Del Method Room Air 02/27/25 12:00 O2 Flow Rate 2 02/25/25 16:30 02/26/25 02/27/25 02/27/25 22:59 06:59 14:59 Intake Total 200 / 680 50 / 730 860 / 860 Output Total 100 / 100 3500 / 3500 Balance 100 / 580 50 / 630 -2640 / -2640 Weight last 48 hrs Weight 99.5 kg Weight 102.421 kg Weight 98.883 kg Weight 98.067 kg Weight 92.986 kg Physical Exam 2 Narrative: General well-developed well-nourished obese male in no acute cardiopulmonary distress CV regular rate and rhythm Lungs crackles heard in bases left greater than right and completely clear with deep breath Abdomen positive bowel tones soft obese nontender Calves no tenderness cords or pretibial edema Skin warm and dry Patient with moist sounding cough but coughed nothing up Data 02/27/25 09:45 02/27/25 09:45 Micro: Microbiology 02/25/25 14:46 Blood Culture - Preliminary Blood NEGATIVE TO DATE 02/25/25 14:20 Blood Culture - Preliminary Blood NEGATIVE TO DATE A&P Assessment and plan 1. Left lower lobe pneumonia: Will start Decadron and obtain chest x-ray PA and LAT. Because white count hovering at 14-70,000 will change antibiotics. To Levaquin give 750 mg IV following dialysis 2. Hypoxemia: Patient has been stable on room air 3. Ischemic cardiomyopathy: Stable. Recent mid to distal RCA stent placed last hospitalization continue with Plavix 4. End stage renal disease on dialysis: I consulted Dr. Gibson for dialysis today PDMP PDMP Reviewed: Not Reviewed Attestations 2 Medical Necessity Statement*: Patient yael in hospital with hemoptysis and pneumonia awaiting sputum sample and follow-up chest x-ray. He will require additional midnight in the hospital Coding Level of Care Code Acute Code for Chg Fwd Diagnoses Left lower lobe pneumonia J18.9 Hypoxemia R09.02 Ischemic cardiomyopathy I25.5 End stage renal disease on dialysis N18.6; Z99.2
--- NOTE | 2025-02-27 15:30 | XRR_ITS ---
PROCEDURE INFORMATION: Exam: XR Chest Exam date and time: 02/27/2025 3:41 PM Age: 54 years old Clinical indication: Other: Lung crackles; Prior surgery; Surgery date: 6+ months; Surgery type: Pacer open heart port; Additional info: Lung crackles and hemoptysis, patient is on eliquis with elevated white count suspected TECHNIQUE: Imaging protocol: Radiologic exam of the chest. Views: 2 views. COMPARISON: CR XR chest 1V portable [id number] 02/22/2025 8:35 AM FINDINGS: Tubes, catheters and devices: Right anterior chest wall AICD. There are sternal wires consistent with previous sternotomy incision. Left anterior chest wall infusion port with its tip overlying the brachiocephalic vein. Lungs: Retrocardiac opacity, concerning for pneumonia overlying the lower thoracic spine, best visualized on lateral imaging. Pleural spaces: Unremarkable. No pleural effusion. No pneumothorax. Heart/Mediastinum: Unremarkable. No cardiomegaly. Bones/joints: Thoracic spondylosis. XR/XR chest 2V* [id number] IMPRESSION: Retrocardiac opacity, concerning for pneumonia, best visualized on lateral imaging.
--- NOTE | 2025-02-27 18:29 | P.PN_ITS ---
Subjective 2 Subjective: getting hd Medications: Reviewed: Yes Vitals/I&O/Wt Last Vital Signs Temp 97.5 F L 02/27/25 16:26 Pulse 54 L 02/27/25 16:26 Resp 16 02/27/25 16:26 BP 85/41 02/27/25 16:26 Pulse Ox 92 02/27/25 16:26 O2 Del Method Room Air 02/27/25 16:26 O2 Flow Rate 2 02/25/25 16:30 02/27/25 02/27/25 02/27/25 06:59 14:59 22:59 Intake Total 50 / 730 860 / 860 180 / 1040 Output Total 3500 / 3500 Balance 50 / 630 -2640 / -2640 180 / -2460 Weight last 48 hrs Weight 99.5 kg Weight 102.421 kg Weight 98.883 kg Physical Exam 2 Narrative: awak , aelrt PEERLA NO JVD S1S2 RRR per report Lungs clear karissa Abd soft , non tender no edema Data 02/27/25 09:45 02/27/25 09:45 Micro: Microbiology 02/25/25 14:46 Blood Culture - Preliminary Blood NEGATIVE TO DATE 02/25/25 14:20 Blood Culture - Preliminary Blood NEGATIVE TO DATE A&P Assessment and plan 1. ESRD (end stage renal disease): Plan: 1. End-stage renal disease: Will continue dialysis per TTS schedule and ultrafiltration as tolerated 2. Hypertension , Resume home meds 3. History of coronary artery disease 4. Anemia: Hemoglobin at goal per CKD 5. MBD: Will resume home binders 6. Acute bronchitis Patient evaluated using audiovisual cart. Time spent 40 minutes PDMP PDMP Reviewed: Not Reviewed Attestations 2 Medical Necessity Statement*: per cortezga Coding Level of Care Code Acute Code for Chg Fwd Diagnoses ESRD (end stage renal disease) N18.6
[2025-02-27] MEDS: lidocaine 2% viscous 15 ML, aluminum-mag hydrox-simethicon 30 ML, sucralfate oral liq 1 GM PO (19:44)
[2025-02-27 20:42] LABS: Hematocrit 29.6 % (37-53); Hemoglobin 10.20 g/dL (11.27-16.99); Mean Corpuscular HGB Conc 34.5 g/dL (30-55); Mean Corpuscular Hemoglobin 32.8 pg (27-33); Mean Corpuscular Volume 95.2 fl (82-101); Nucleated Red Blood Cells % 0 %; Platelet Count 305 10^3/cmm (157-399); Red Blood Count 3.11 10^6/uL (3.85-5.65); White Blood Count 13.47 10^3/uL (3.29-11.43)
[2025-02-27 20:58] LABS: Alanine Aminotransferase 15 U/L (0-41); Albumin Level 3.2 g/dL (3.5-5.2); Alkaline Phosphatase 85 U/L (40-130); Anion Gap 19.9 (5-19); Aspartate Amino Transferase 21 U/L (0-40); Blood Urea Nitrogen 51 mg/dL (6-20); Calcium 8.1 mg/dL (8.5-10.5); Carbon Dioxide 24 mmol/L (22-29); Chloride 95 mmol/L (98-107); Globulin 2.8 g/dL (1.3-4.6); Glucose 335 mg/dL (65-115); Lipase 35 U/L (13-60); Osmolality Calculated 305 mOsm/kg (285-295); Potassium 4.9 mmol/L (3.5-5.1); Sodium 134 mmol/L (136-145); Total Protein 6.0 g/dL (6.6-8.7)
[2025-02-27 20:59] LABS: Creatinine Clr Calc Pharmacy 20.8101
[2025-02-28] MEDS: HYDROcodone-acetaminophen 7.5-325 mg Tablet 1 TAB PO ×2 (01:06→11:59)
[2025-02-28 04:00] VITALS: BP 115/48; PULSE 60; RESP 17; TEMP 36.5; O2SAT 94
[2025-02-28] MEDS: insulin glargine 100 units/1 mL 32 UNIT SUBCUT (04:27)
[2025-02-28] MEDS: ranolazine (12HR) 500 mg Tablet 1000 MG PO (04:28)
[2025-02-28] MEDS: APIXABAN 2.5 MG TABLET PO (04:29)
[2025-02-28] MEDS: dorzolamide/timolol Op Soln 10 mL Btl 1 DROP EYE-BOTH (04:29)
[2025-02-28 05:28] VITALS: PULSE 55
[2025-02-28 07:24] VITALS: BP 128/59; PULSE 57; RESP 18; TEMP 36.5; O2SAT 94
--- NOTE | 2025-02-28 10:20 | P.DS_ITS ---
Discharge Providers Date of Admission: 02/26/25 10:31 Date of Discharge: February 28, 2025 Attending Provider at Admission: Jose Hightower MD Attending Provider at Discharge: Jose Hightower MD Consults: Clemencia Gibson MD nephrology Primary Care Provider: Dez Evans MD Diagnoses at Discharge Discharge Diagnosis 1. Left lower lobe pneumonia: Details from hospital stay: Patient was admitted with hematemesis and mild hypoxemia requiring oxygen. Elevated white count persisted despite Rocephin and azithromycin so patient was switched to Levaquin every 48 hours to be taken after dialysis. White count did decrease some. Hemoptysis has decreased. Patient does not requiring oxygen will be discharged home to resume outpatient dialysis We discussed risks and benefits of anticoagulation and as hemoptysis is decreasing recommend he continue both Plavix and apixaban. 2. Ischemic cardiomyopathy: Details from hospital stay: Recent stent placed last hospitalization including at mid to distal drug-eluting stent. Patient needs to remain on Plavix 3. End stage renal disease on dialysis: Details from hospital stay: Resume home dialysis schedule 4. Paroxysmal atrial fibrillation: Details from hospital stay: Continue Eliquis. Patient also has history of PE 5. Wide-complex tachycardia: Details from hospital stay: History of defibrillator firing prior to last visit continue with amiodarone at 200 mg twice a day and metoprolol decreased to 12.5 mg twice a day due to mild bradycardia 6. Atherosclerotic heart disease of [place] coronary artery with other forms of angina pectoris: Details from hospital stay: Stent placed last hospitalization 4 days prior to this admission. Continue Plavix 7. History of pulmonary embolism: Details from hospital stay: Continue apixaban 8. DVT (deep venous thrombosis): Details from hospital stay: Continue apixaban 9. Chronic pain: Details from hospital stay: Resume home blood pressure medications. Patient repeatedly requesting morphine here but objective indicators of uncontrolled pain not met and he refused to take his oxycodone which he states would not cut it Reason for Visit Reason for Visit: ams Brief History: Rei Queen II is a 54 year old male with recent mid to distal RCA stent had A-fib RVR treated with amiodarone. Started on Eliquis. Comes in with cough raspy breathing mild hypoxemia and cough productive of brownish-red phlegm occasional green. He had dialysis today and was sent into the emergency department. He is companied by his Chantale who reports that patient had PE in the past and is afraid of patient having more pulmonary emboli. Patient states he did obtain the Eliquis and has been taking it faithfully. He has been on Eliquis in the past including prior to last admission 02/22/2025. Patient reports temperature of 100.2 last evening taken axillary Hospital Course Hospital Course 54-year-old white male with end-stage renal disease admitted with left lower lobe pneumonia. He had hemoptysis attributable to pneumonia or bronchitis in the setting of anticoagulation with apixaban and also antiplatelet agent apixaban. Patient's white count initially decreased but then increased on Rocephin and azithromycin so he was switched to Levaquin. His white count decreased and his hemoptysis improved. He has not required oxygen last 2 days will be discharged home to follow-up with his primary care provider. Physical Exam Narrative: General well-developed well-nourished obese male in no acute cardiopulmonary distress CV regular rate and rhythm Lungs crackles heard in bilateral bases incompletely cleared with cough and deep breath but significant improvement Abdomen positive bowel tones soft obese nontender Calves no tenderness cords or pretibial edema Skin warm and dry Patient with moist sounding cough but coughed nothing up Discharge Data Studies Completed and Pending Completed Studies During Hospitalization Category Date Time Status XR acute abdomen series 09691 Stat Exams 02/25/25 13:59 Completed XR chest 2V* [id number] Routine Exams 02/27/25 15:30 Completed Pending at discharge Category Date Time Status Blood Culture Stat Lab 02/25/25 14:46 Results Sputum Culture and Gram Stain Stat Lab 02/27/25 13:25 Received Radiology Impressions Chest/Abdomen X-ray 02/25/25 13:59 IMPRESSION: No acute abdominal pathology. Large amount of colonic stool. Basilar areas of atelectasis and/or airspace disease, greater on the left. Chest X-Ray 02/27/25 15:30 IMPRESSION: Retrocardiac opacity, concerning for pneumonia, best visualized on lateral imaging. Laboratory Results WBC 13.47 10^3/uL (3.29-11.43) H 02/27/25 20:35 RBC 3.11 10^6/uL (3.85-5.65) L 02/27/25 20:35 Hgb 10.20 g/dL (11.27-16.99) L 02/27/25 20:35 Hct 29.6 % (37-53) L 02/27/25 20:35 MCV 95.2 fl (82-101) 02/27/25 20:35 MCH 32.8 pg (27-33) 02/27/25 20:35 MCHC 34.5 g/dL (30-55) 02/27/25 20: RDW 13.5 % (12.1-15.1) 02/27/25 20:35 Plt Count 305 10^3/cmm (157-399) 02/27/25 20:35 MPV 10.2 fL (7.4-10.4) 02/27/25 20:35 Neut % (Auto) 92.1 % 02/27/25 20:35 Lymph % (Auto) 4.1 % 02/27/25 20:35 [place] % (Auto) 2.9 % 02/27/25 20: Eos % (Auto) 0.0 % 02/27/25 20: Baso % (Auto) 0.1 % 02/27/25 20:35 Neut # (Auto) 12.41 10^3/uL (1.8-7.7) H 02/27/25 20:35 Lymph # (Auto) 0.6 10^3/uL (0.8-4.8) L 02/27/25 20:35 [place] # (Auto) 0.4 10^3/uL (0.2-0.9) 02/27/25 20:35 Eos # (Auto) 0.0 10^3/uL (0.0-0.8) 02/27/25 20:35 Baso # (Auto) 0.0 10^3/uL (0.0-0.1) 02/27/25 20:35 Nucleated RBC % (auto) 0 % 02/27/25: Nucleated RBCs # 0.0 /100WBC 02/27/25 20:35 Specimen Type Arterial 02/25/25 16:15 Sample Site Brachial, right 02/25/25 16:15 ABG pH 7.44 (7.35-7.45) 02/25/25 16:15 ABG pCO2 43.7 mmHg (35-45) 02/25/25 16:15 ABG pO2 53.8 mmHg (80.0-100.0) L 02/25/25 16:15 ABG PO2/FiO2 Ratio 256 02/25/25 16:15 ABG HCO3 29.6 mmol/L (22-26) H 02/25/25 16:15 ABG O2 Saturation 87.6 02/25/25 16:15 ABG Base Excess 4.9 mmol/L (-2.0-2.0) H 02/25/25 16:15 Scottie Test N/a 02/25/25 16:15 A-a O2 Gradient 5.7 mmHg (5-10) 02/25/25 16:15 Hematocrit 33.0 % (42-52) L 02/25/25 16:15 Hgb O2 Saturation 86.1 % (95-100) L 02/25/25 16:15 Carboxyhemoglobin 0.8 %THgb (0.4-20.1) 02/25/25 16:15 Methemoglobin 1.0 % (0.4-1.5) 02/25/25 16:15 Total Hemoglobin 10.8 g/dL (14-18) L 02/25/25 16:15 Sodium 135.0 mmol/L (131-143) 02/25/25 16:15 Potassium 3.8 mmol/L (3.5-5.0) 02/25/25 16:15 Glucose 196.0 mg/dL (70-115) H 02/25/25 16:15 Ionized Calcium 1.1 mmol/L (1.1-1.4) 02/25/25 16:15 O2 Delivery Device Room air 02/25/25 16:15 FiO2 21.0 % 02/25/25 16:15 Wire Coiler ID Gd 02/25/25 16:15 Sodium 134 mmol/L (136-145) L 02/27/25 20:35 Potassium 4.9 mmol/L (3.5-5.1) 02/27/25 20:35 Chloride 95 mmol/L (98-107) L 02/27/25 20:35 Carbon Dioxide 24 mmol/L (22-29) 02/27/25 20:35 Anion Gap 19.9 (5-19) H 02/27/25 20:35 BUN 51 mg/dL (6-20) H 02/27/25 20:35 Creatinine 4.3 mg/dL (0.7-1.2) H 02/27/25 20:35 GFR Calculation 14.4 mL/min (90-130) L 02/27/25 20:35 Glucose 335 mg/dL (65-115) H 02/27/25 20:35 POC Glucose 376 mg/dL (70-110) H 02/28/25 06:29 Insulin Ref Range uIU/mL 19.1 uIU/mL H 02/25/25 14:20 Calculated Osmolality 305 mOsm/kg (285-295) H 02/27/25 20:35 Lactic Acid 1.4 mmol/L (0.5-2.2) 02/25/25 14:20 Calcium 8.1 mg/dL (8.5-10.5) L 02/27/25 20:35 Phosphorus 2.9 mg/dL (2.5-4.5) 02/27/25 09:45 Magnesium 2.0 mg/dL (1.7-2.3) 02/27/25 09:45 Total Bilirubin 0.4 mg/dL (0.15-1.2) 02/27/25 20:35 AST 21 U/L (0-40) 02/27/25 20:35 ALT 15 U/L (0-41) 02/27/25 20:35 Alkaline Phosphatase 85 U/L (40-130) 02/27/25 20:35 Total Protein 6.0 g/dL (6.6-8.7) L 02/27/25 20:35 Albumin 3.2 g/dL (3.5-5.2) L 02/27/25 20:35 Globulin 2.8 g/dL (1.3-4.6) 02/27/25 20:35 Lipase 35 U/L (13-60) 02/27/25 20:35 Urine Color Yellow (Yellow) 02/26/25 21:56 Urine Appearance Clear (CLEAR) 02/26/25 21:56 Urine pH 5 (5-7) 02/26/25 21:56 Ur Specific [place] 1.020 (1.005-1.030) 02/26/25 21:56 Urine Protein 1+ (Negative) H 02/26/25 21:56 Urine Glucose (UA) 4+ (Normal) H 02/26/25 21:56 Urine Ketones Negative (Negative) 02/26/25 21:56 Urine Blood Neg (Negative) 02/26/25 21:56 Urine Nitrate Negative (Negative) 02/26/25 21:56 Urine Bilirubin 1+ (Negative) H 02/26/25 21:56 Urine Urobilinogen Norm mg/dL (Negative) 02/26/25 21:56 Ur Leukocyte Esterase Negative (Negative) 02/26/25 21:56 Amorphous Sediment Not Reportable 02/26/25 21:56 Influenza A (PCR) Negative (Negative) 02/25/25 16:15 Influenza Type B (PCR) Negative (Negative) 02/25/25 16:15 RSV (PCR) Negative (Negative) 02/25/25 16:15 SARS-CoV-2 (PCR) Negative (Negative) 02/25/25 16:15 Vitals Last Vital Signs Temp 97.7 F 02/28/25 07:24 Pulse 57 L 02/28/25 07:24 Resp 18 02/28/25 07:24 BP 128/59 02/28/25 07:24 Pulse Ox 94 02/28/25 07:24 O2 Del Method Room Air 02/28/25 07:24 O2 Flow Rate 2 02/25/25 16:30 Discharge Plan Discharge Patient Disposition: Home Condition: Stable Prescriptions: New prednisone 20 mg tablet 40 mg PO DAILY 5 Days Qty: 10 0RF amiodarone [Pacerone] 200 mg Tablet 200 mg PO BID Qty: 60 0RF levofloxacin 500 mg Tablet 500 mg PO Q48H Qty: 4 0RF Rx Instructions: On dialysis days take after dialysis Continued Ozempic 2 mg/dose (8 mg/3 mL) pen injector 2 mg SUBCUT Q7D Qty: 9 0RF nitroglycerin [Nitrostat] 0.4 mg tablet, sublingual 0.4 mg SUBLINGUAL Q5M PRN (Reason: Chest Pain) Qty: 25 2RF Rx Instructions: do not exceed 3 doses per episode (DME) Dexcom G7 Sensor Device See Rx Instructions .ROUTE .COMPLEX Qty: 9 1RF Dose Instruction: CHANGE every 10 DAYS Rx Instructions: CHANGE every 10 DAYS tizanidine 2 mg tablet 2 mg PO BID PRN (Reason: Muscle Spasm) promethazine 25 mg tablet 25 mg PO Q6H PRN (Reason: Nausea) bumetanide 2 mg tablet 2 mg PO DAILY sacubitril-valsartan [Entresto] 24-26 mg tablet 2 tab PO DAILY trazodone 100 mg tablet 300 mg PO BEDTIME PRN (Reason: insomnia) clopidogrel 75 mg Tablet 75 mg PO DAILY Qty: 100 0RF atorvastatin [Lipitor] 80 mg tablet 80 mg PO BEDTIME Qty: 30 0RF diphenhydramine HCl [Benadryl Allergy] 25 mg Tablet 50 mg PO DAILY PRN (Reason: Allergy Symptoms) insulin lispro [Humalog KwikPen Insulin] 100 unit/mL insulin pen See Rx Instructions .ROUTE .COMPLEX Rx Instructions: Sliding scale subcutaneously twice a day as needed. RenaPlex-D 800 mcg-12.5 mg -2,000 unit tablet 1 tab PO BEDTIME acetaminophen [Tylenol Extra Strength] 500 mg Tablet 1,000 mg PO QID PRN (Reason: Pain) levothyroxine 88 mcg tablet 88 mcg PO QAM gabapentin 300 mg capsule 300 mg PO BID Eliquis 2.5 mg tablet 2.5 mg PO BID insulin degludec [Tresiba FlexTouch U-200] 200 unit/mL (3 mL) insulin pen 40 unit SUBCUT QAM ranolazine 1,000 mg tablet extended release 12 hr 1,000 mg PO BID hydrocodone-acetaminophen 7.5-325 mg Tablet 1 tab PO Q6H PRN (Reason: Pain) dorzolamide-timolol 22.3-6.8 mg/mL drops 1 drp ophthalmic (eye) BID testosterone cypionate 200 mg/mL oil 200 mg IM .Q30D Changed metoprolol tartrate 25 mg Tablet 12.5 mg PO BID@0900,2100 Qty: 30 0RF Rx Instructions: Check your blood pressure twice a day before you take this medication and if heart rate less than 55 skip the dose Discontinued amiodarone [Pacerone] 200 mg Tablet See Rx Instructions .ROUTE .COMPLEX Qty: 120 0RF Rx Instructions: Take 400mg by mouth twice a day for 5 days then 200 mg twice a day thereafter. [employer] OK for DC: Nephrology Discharge Order = DC NOW: Discharge Order (Routine); Ordered 02/28/25 Ordered By: Jose Hightower Referrals: [facility] - [Outside] Dez Evans MD [Primary Care Provider, Family Practice] - 1 week Discharge Diet: Usual diet and Diabetic Discharge Activity: Increase activity as tolerated Patient Instructions: A-fib (Atrial Fibrillation) (GEN), Upper Respiratory Infection (ED), Bacterial Pneumonia (GEN), Diabetic Hyperglycemia (GEN), Diabetes and Nutrition (GEN), Opioid Safety, Pain Management, Patient Portal & Sunny Instructions Activity Restrictions/Additional Instructions: Continue with renal diet Amiodarone is decreased to 200 mg twice a day and metoprolol to 12.5 mg twice a day Hold your metoprolol if your heart rate is less than 55 You should follow a diabetic renal diet eating less than 1500 maureen to effect weight loss and control your blood sugars. Return for fevers or worsened bloody cough Use incentive spirometer 10 times an hour while awake until your breathing returns back to normal Discharge Attestations Time Spent in Discharge Care*: greater than 30 min Time Spent in Smoking Cessation: Patient is not a smoker Status at Discharge: Cognitive status at discharge: cognitively intact , Behavioral status at discharge: cooperative and independent in ADL's , Quality Metrics Clinical Quality Measures [ No reported AMI, CVA or VTE this stay] Coding Level of Care Code 05717 Diagnoses Left lower lobe pneumonia J18.9 Ischemic cardiomyopathy I25.5 End stage renal disease on dialysis N18.6; Z99.2 Paroxysmal atrial fibrillation I48.0 Wide-complex tachycardia R00.0 Atherosclerotic heart disease of [place] coronary 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 History of pulmonary embolism Z86.711 DVT (deep venous thrombosis) I82.409 Chronic pain G89.29 Time Spent (min) 45
[2025-02-28 11:18] VITALS: BP 115/47; PULSE 54; RESP 18; TEMP 36.4; O2SAT 95
--- NOTE | 2025-02-28 13:10 | PC.NURSE ---
Michelle Herrera RN, de-accessed port for discharge.
--- NOTE | 2025-02-28 13:31 | PC.NURSE ---
The patient signed discharge paperwork at 1301. Is awaiting cab ride for transportation.
== END 2025-02-28 14:15 | disposition home or self-care (01) | DRG 193 ==
LOC: ER 16:35 → MEDSURG 17:04
PROVIDERS: Internal Medicine; Admitting Provider Internal Medicine; Emergency Provider Emergency Medicine; PCP Family Medicine; Visit Provider Internal Medicine
DX: J18.9 Pneumonia, unspecified organism (principal); N18.6 End stage renal disease; I13.2 Hypertensive heart and chronic kidney disease with heart failure and with stage 5 chronic kidney disease, or end stage renal disease; I50.22 Chronic systolic (congestive) heart failure; F33.2 Major depressive disorder, recurrent severe without psychotic features; J20.9 Acute bronchitis, unspecified; R09.02 Hypoxemia; I25.5 Ischemic cardiomyopathy; E11.22 Type 2 diabetes mellitus with diabetic chronic kidney disease; Z99.2 Dependence on renal dialysis; I48.0 Paroxysmal atrial fibrillation; R00.0 Tachycardia, unspecified; I25.10 Atherosclerotic heart disease of native coronary artery without angina pectoris; Z95.5 Presence of coronary angioplasty implant and graft; Z86.711 Personal history of pulmonary embolism; Z86.718 Personal history of other venous thrombosis and embolism; G89.29 Other chronic pain; Z79.01 Long term (current) use of anticoagulants; D63.1 Anemia in chronic kidney disease; K21.9 Gastro-esophageal reflux disease without esophagitis; Z87.440 Personal history of urinary (tract) infections; E11.42 Type 2 diabetes mellitus with diabetic polyneuropathy; E11.51 Type 2 diabetes mellitus with diabetic peripheral angiopathy without gangrene; F41.1 Generalized anxiety disorder; Z79.4 Long term (current) use of insulin; Z79.891 Long term (current) use of opiate analgesic; Z79.85 Long-term (current) use of injectable non-insulin antidiabetic drugs
CPT/HCPCS: 36415; 36416; 36600; 71046; 74022; 80048; 80051; 80053; 81001; 82330; 82805; 82962; 83525; 83605; 83690; 83735; 84100; 85025; 87040; 87070; 87205; 87637; 90935; 93005; 96365; 96372; 96375; 99285; G0378; J0456; J0696; J1100; J1815; J2919; J7040; J7050; J9999; Q0144; Q0169

== ENCOUNTER 2025-03-01 20:40 | Emergency (ER) | payer MEDICARE, SELFPAY ==
[2024-03-20 13:31] VITALS: BP 125/53; BMI 35.0
--- OUTSIDE RECORDS SUMMARY | 2025-02-22 08:00 | XMS_ITS | Encounter Summary ---
Author Organization [facility] Address [address] [place] [address] Care Team Providers Care Accounting Manager Assistant Controller Name Role Phone Dez Evans MD Primary Care Provider [phone] Reason for Visit * Reason Comments ICD CHECK Encounter Details Date Type Department Care Team (Latest Contact Info) Description 02/22/2025 8:00 AM CDT Procedure visit [facility] [address] [place] [address] Ischemic dilated cardiomyopathy (CMS/HCC) (Primary Dx); VT (ventricular tachycardia); Automatic implantable cardioverter-defibrill ator in situ Social History Tobacco Use Types Packs/Day Years Used Date Smoking Tobacco: Never Smokeless Tobacco: Never Alcohol Use Standard Drinks/Week Comments Not Currently 0 (1 standard drink = 0.6 oz pur e alcohol) rarely drinks since 2013 Feeling Safe Answer Date Recorded Are you in a relationship wi th someone who hurts you emotionally and/or physically? No 09/19/2024 Food Insecurity Answer Date Recorded Patient needs follow up regardin 09/11/2024 Transportation Needs Answer Date Record ed Patient needs follow up regardin 09/11/2024 Housing Stability Answer Date Recorded Social/Environmental Concerns No concerns Utility Needs Answer Date Recorded Patient needs follow up regardin 09/11/2024 Sex and Gender Information Value Date Recorded Sex Assigned at Not on file Legal Sex Male 2:43 AM RANGE AIDE Gender Identity Not on file Sexual Orientation Not on file Occupation Industry Job Start Date Job End Date Not on file Not on file Not on file Not on file documented as of this encounter Progress Notes * Jeanne Lagos RN - 02/22/2025 12:28 PM CDT Please see procedure note. documented in this encounter Procedure Notes * Jeanne Lagos RN - 02/22/2025 12:28 PM CDTAssociated Order(s): ICD ANALYSIS REMOTE, UP TO 90 DAYS Procedure(s): UT INTERROGATION EVAL REMOTE </90 D 1/2/EMG TECHNICIAN LD DFB; UT REM INTERROG PM/LDLS PM/IDS<90 D TECH REVIEW Pre-Procedure Diagnose(s): Ischemic dilated cardiomyopathy (CMS/HCC); VT (ventricular tachycardia);Automatic implantable cardioverter-defibrillator in situ Remote Transmission Report Date of Procedure: February 22, 2025 Events: Episodes of probable RVR recorded with one event treated with ATP. Patient is on Eliquis per Med list. Called patient and left message for call back. Per past notes patient follows in [place]. Comments: Biotronik remote transmission reveals normal single chamber ICD function with stable available threshold and impedance trends. Presenting EGM indicates No current EGM. See attached report for details. documented in this encounter Plan of Treatment Not on file documented as of this encounter Procedures Procedure Name Priority Date/Time Associated Diagnosis Comments UT REM INTERROG PM/LDLS PM/IDS <90 D TECH REVIEW Routine 02/22/2025 7:21 AM CDT Ischemic dilated cardiomyopathy (CMS/HCC) VT (ventricular tachycardia) Automatic implantable cardioverter-defibril lator in situ UT INTERROGATION EVAL REMOTE </90 D 1/2/EMG TECHNICIAN LD DFB Routine 02/22/2025 7:21 AM CDT Ischemic dilated cardiomyopathy (CMS/HCC) VT (ventricular tachycardia) Automatic implantable cardioverter-defibril lator in situ documented in this encounter Results * UT INTERROGATION EVAL REMOTE </90 D 1/2/EMG TECHNICIAN LD DFB, UT REM INTERROG PM/LDLS PM/IDS <90 D TECHREVIEW (02/22/2025 7:21 AM CDT) 02/22/2025 7:21 AM CDT Narrative INTERFACE SYSTEM - 02/22/2025 12:46 PM CDT Jeanne Lagos RN 02/22/2025 12:47 PM Remote Transmission Report Date of Procedure: February 22, 2025 Events: Episodes of probable RVR recorded with one event treated with ATP. Patient is on Eliquis per Med list. Called patient and left message for call back. Per past notes patient follows in [place]. Comments: Biotronik remote transmission reveals normal single chamber ICD function with stable available threshold and impedance trends. Presenting EGM indicates No current EGM. See attached report for details. Stephani Keen MD CARDIAC SERVICES ORDERA BLES Edited Result - Final INTERFACE SYSTEM Refer to clinic/hospital department documented in this encounter Visit Diagnoses Diagnosis Ischemic dilated cardiomyopathy (CMS/HCC)- Primary Other specified forms of chronic ischemic heart disease VT (ventricular tachycardia) Paroxysmal ventricular tachycardia Automatic implantable cardioverter-defibrillator in situ documented in this encounter Additional Health Concerns Assessment Noted Time PHQ-9 Depression Total Score: 1 06/29/19 2:57 AM RANGE AIDE documented as of this encounter Care Teams Accounting Manager Assistant Controller Relationship Specialty Start Date End Date Dez Evans MD [address] [place] [phone] PCP - General Family Practice 06/18/24 documented as of this encounter
[2025-03-01 20:40] VITALS: BP 105/40; PULSE 68; RESP 18; TEMP 37; O2SAT 96; BMI 36.6
--- OUTSIDE RECORDS SUMMARY | 2025-03-01 20:48 | XMS_ITS | Encounter Summary ---
Author Organization [facility], [facility] Address [address] [place] [address] Phone Care Team Providers Care Clinic Receptionist Name Role Phone Kp Montanez DO Primary Care Provider [phone] Encounter Details Date Type Department Care Team (Late st Contact Info) Description 02/25/2025 Orders Only [facility] [address] [place] [address] Yesi Madison MD [address] [place] [address] Social History Tobacco Use Types [...] Priority Date/Time Associated Diagnosis Comments HEMATOLOGY Routine 02/25/2025 documented in this encounter Results * (ABNORMAL) HEMATOLOGY (02/25/2025) Hemoglobin 11.2(L) 14.0 - 18.0 g/dL [facility] Hemoglobin x 3 33.6(L) 42.0 - 54.0 % [facility] 02/25/2025 02/26/2025 10: 59 AM CDT Narrative [facility] - 02/26/2025 Unless otherwise specified, test(s) performed at: [facility], [address] [place] [id number] RN NAVIGATOR: Jose Martin Mariscal M.D. For any questions, please call customer service at [facility]:OTHER Resulting Agency Comment Specimen source: Blood us Yesi Madison MD LAB BLOOD ORDERABLES Final Re sult [facility] See order comments or contact performing lab Unknown, [place] documented in this encounter Visit Diagnoses Not on filedocumented in this encounter Care Teams Clinic Receptionist Relationship Specialty Start Date End Date Kp Montanez DO [address] [place] [address] PCP - General Internal Medicine 01/07/23 documented as of this encounter
--- OUTSIDE RECORDS SUMMARY | 2025-03-01 20:48 | XMS_ITS | Patient Health Record ---
Author Organization [facility] Address [address] [place] [address] Care Team Providers Care Senior Mechanical Designer Name Role Phone Cristina RITTER, Dez Primary Care Provider UnavailElizabeth Jon Unavailable [phone] Pee Castaneda MD Unavailable Unavailable Ray Sherman Unavailable [phone] Migration, Provider Unavailable Unavailable Ajit Silver Unavailable [phone] Allergies Allergen (clinical drug ingredient) Drug/Non Drug [...] Notes/Report: Urine Drug Screen (cup read) - 72456 Reviewed date:11/05/2024 02:20:09 PM Interpretation: Performing Lab: Notes/Report: BUP + OPI + OXY + Urine Confirmation Panel (in strument) - [id number] Reviewed date:11/10/2024 02:00:57 PM Interpretation: Performing Lab: [...] the U.S. Food and Drug Administration. Gabapentin >02210 <225 ng/mL > This test was developed [...] Administration. Urine Drug Screen (cup read) - 40386 Reviewed date:01/07/2025 03:06:32 PM Interpretation: Performing Lab: Notes/Report: OPI + Tox Results Reviewed date:11/10/2024 02:08:00 PM Interpretation: Performing Lab: Notes/Report: Urine Confirmation Panel (in strument) - 10341 Reviewed date:09/01/2024 08:59:18 AM Interpretation: Performing Lab: [...] Provider Speciality Family Med icine Referred Organization [facility] Referred Provider Ray Sherman Referred Address [address] [facility] [place],[address] Referred Provider Specialty Gastroentero logy General Notes Taisha Godoy 09/22 04:14:39 PM >manager inpatient Referral Priority Routine Reason chronic back pain gr eater than three months duration Diagnosis 1 Other chronic pain ( G89.29) Referring Provider First Name Kp Referring Provider Last Name Lisseth Referring Provider Speciality Internal M edicine Referred Organization [facility] Referred Provider Eran Block Referred Address [address] [facility],[address],[place] Referred Provider Specialty Pain Medicin e General Notes Tania Freeman 1 06/28/2023 11:04:24 AM >LVM to schedule new appt. 04/27/24 Referral Priority Routine Reason low back and neck pa in Diagnosis 1 Lumbar radiculopathy (M54.16) Diagnosis 2 Cervical radiculopat hy (M54.12) Referral Organization [facility] Referring Provider First Name Elizabeth Referring Provider Last Name Canales Referring Provider Speciality Pain Medic ine Referred Provider [facility] Referred Provider Specialty Preventive M edicine [...] W/U Status Risk Notes Problem Chronic pain (72327527) Other chronic pain (G89.29) Active confirmed Problem Chronic pain syndrome (766004768) Chronic pain syndrome (G89.4) Active confirmed Problem Cervical radiculopathy (66956212) Cervical radiculopathy (M54.12) Active confirmed Problem Lumbar radiculopathy (040157310) Lumbar radiculopathy (M54.16) Active confirmed Problem Long-term current use of drug therapy (088965031) Long-term use of high-risk medication (Z79.899) Active confirmed Problem Abnormal gait (70145309) Abnormality of gait and mobility (R26.9) Active confirmed Problem Atherosclerotic heart disease of jamul coronary artery without angina pectoris (532100605304175 ) Atherosclerotic heart disease of jamul coronary artery without angina pectoris (I25.10) Active confirmed [id number] m ed Description:Patricia nary arteriosclerosis Problem Presence of coronary angioplasty implant and graft (Z95.5) Active confirmed [id number]-Hj om ed Description:Hist ory of placement of stent for coronary artery disease Problem Essential hypertension (48684984) Essential primary hypertension (I10) Active confirmed Xom-0806325-Urt m ed Description:Holger mendiola essential hypertension Vital Signs Height-cm 165.1 cm 11/05/2024 Weight-kg 90.72 kg 11/05/2024 Height 65 in 11/05/2024 Weight 200 lbs 11/05/2024 BMI 33.28 kg/m2 11/05/2024 Encounters Encounter Location Date Provider Diagnosis [facility] Management [address] [address] 06/24/2024 Ajit Silver Chronic pain syndrom e G89.4 ; Lumbar radiculopathy M54.16 ; Atherosclerotic heart disease of jamul coronary artery without angina pectoris I25.10 ; Abnormality of gait and mobility R26.9 and Long-term use of high-risk medication Z79.899 [facility] [address] [address] 07/15/2024 Ajit Silver Chronic pain syndrom e G89.4 ; Lumbar radiculopathy M54.16 ; Atherosclerotic heart disease of jamul coronary artery without angina pectoris I25.10 and Long-term use of high-risk medication Z79.899 [facility] [address] [address] 09/02/2024 Ajit Silver Chronic pain syndrom e G89.4 ; Lumbar radiculopathy M54.16 ; Atherosclerotic heart disease of jamul coronary artery without angina pectoris I25.10 and Long-term use of high-risk medication Z79.899 [facility] [address] [place] [address] 11/05/2024 Elizabeth Canales Chronic pain syndrom e G89.4 ; Cervical radiculopathy M54.12 ; Lumbar radiculopathy M54.16 ; Atherosclerotic heart disease of jamul coronary artery without angina pectoris I25.10 and Long-term use of high-risk medication Z79.899 [facility] [place] [address] [place] [address] 01/07/2025 Elizabeth Canales Chronic pain syndrom e G89.4 ; Cervical radiculopathy M54.12 ; Lumbar radiculopathy M54.16 ; Atherosclerotic heart disease of jamul coronary artery without angina pectoris I25.10 and Long-term use of high-risk medication Z79.899 [facility] 0 0 03/14/2024 Provider Migration [facility] 0 03/15/2024 Provider Migration [facility] G[facility] [address] [place] [address] 03/09/2024 Ray Sherman [facility] [place] [address] [place] [address] 11/05/2024 Ajit Silver Lumbar radiculopathy M54.16 [facility] [address] [place] [address] 01/07/2025 Ajit Silver Lumbar radiculopathy M54.16 [facility] [place] [address] [place] [phone] 01/11/2025 Elizabeth Canales Assessments Encounter Date Diagnosis (ICD Code) Assessment Notes Treatment Notes Treatment Clinical Notes Section Notes 06/24/2024 Chronic pain syndrome (ICD-10 - G89.4) [...] effects are noted. Last UDS and [place] MEDICAL REVIEWER reviewed today. Patient is advised that best [...] infarction and pneumonia and was in the [facility] for a bit of time. He [...] effects are noted. Last UDS and [place] MEDICAL REVIEWER reviewed today. Patient is advised that best [...] M54.12) 11/05/2024 Lumbar radiculopathy (ICD-10 - M54.16) 01/07/2025 [...] effects are noted. Last UDS and [place] MEDICAL REVIEWER reviewed today. Patient is advised that best [...] policy. 01/07/2025 Lumbar radiculopathy (ICD-10 - M54.16) 01/07/2025 Cervical radiculopathy (ICD-10 - M54.12) 11/05/2024 Lumbar radiculopathy (ICD-10 - M54.16) 09/02/2024 Lumbar radiculopathy (ICD-10 - M54.16) 07/15/2024 Atherosclerotic heart disease of jamul coronary artery without angina pectoris (ICD-10 - I25.10) [id number]-Chrjrl Description:Damon ry arteriosclerosis 06/24/2024 Atherosclerotic heart disease of jamul coronary artery without angina pectoris (ICD-10 - I25.10) Tga-0691774-Rtnmki Description:Damon ry arteriosclerosis 07/15/2024 Long-term use of [...] testing policy. 09/02/2024 Atherosclerotic heart disease of jamul coronary artery without angina pectoris (ICD-10 - I25.10) Pfo-4959764-Marbzl Description:Damon ry arteriosclerosis 11/05/2024 Atherosclerotic heart disease of jamul coronary artery without angina pectoris (ICD-10 - I25.10) [id number]-Siwhpy Description:Damon ry arteriosclerosis 01/07/2025 Lumbar radiculopathy (ICD-10 - M54.16) 06/24/2024 Abnormality of gait and mobility (ICD-10 - R26.9) 01/07/2025 Atherosclerotic heart disease of jamul coronary artery without angina pectoris (ICD-10 - I25.10) Uko-2258034-Xurwdx Description:Damon ry arteriosclerosis 11/05/2024 Long-term use of high-risk medication (ICD-10 - Z79.899) 09/02/2024 Long-term use of high-risk medication (ICD-10 - Z79.899) 06/24/2024 Long-term use of high-risk medication (ICD-10 - Z79.899) 01/07/2025 Long-term use of high-risk medication (ICD-10 [...] Pending Test Test Name Order Date Diagnostic Colonoscopy-[id number] 02/19/2024 Next Appt Details Provider Name:Omar Moore, To 09:00:00 AM, [address] [place], [address], Insurance Providers Payer Name Payer Address Payer Phone Subscriber Number Group Number Insured Name Patient Relationship to Insured Coverage Start Date Coverage End Date [facility] Medicare Advantage - PPO [address] [address] [place] [address] [id number] SMITHA Downey Self - patient is the insured [employer] Medicare Dual Complete PPO [address] [address] [place] [address] [id number] SMITHA Downey Self - patient is the insured [place] Medicaid [address] [place] [address] [id number] SMITHA Downey Self - patient is the [...]
--- OUTSIDE RECORDS SUMMARY | 2025-03-01 20:48 | XMS_ITS | Encounter Summary ---
Author Organization [facility], [facility] Address [address] [place] [address] Phone Care Team Providers Care Transfer And Pumphouse Operator Chief Name Role Phone MontanezKp kevin Primary Care Provider Encounter Details Date Type Department Care Team (Late st Contact Info) Description 09/29/2024 [facility]CM [facility] [employer], [facility] [address] [place] [address] Ayad Monahan, RN DOCUMENT IMPROVEMENT SPECIALIST [address] [place] [address] Social History Tobacco Use Types [...] 09/29/2024 The patient was seen for a oguy-sj-mpio visit as part of Transitional Care Management services. Attending Track Hoe Operator: RITA MENENDEZ Dialysis Location: [facility] Schedule: Shift: 1 INTERACTIVE [...] 98.1*F Current Dialysis Vitals BP Sit: 159/81 AP/FORESTRY INSTRUCTOR: 198/162 Pulse: 86 CARE COORDINATION No follow-up appointments noted. COMMENTS: no new referrals. EDUCATION Education relevant to the discharge diagnosis provided to the patient or caregiver IMPRESSION & PLAN COMMENTS: 1.hemodialysis access problem; fistulogram completed. Now working well. 2. ESRD on HD: Continue HD TTS. VISIT DIAGNOSES CPT Code 24502 - High complexity, seen within 7 days [...] on filedocumented in this encounter Care Teams Transfer And Pumphouse Operator Chief Relationship Specialty Start Date End Date Kp Montanez DO [address] [place] [address] PCP - General Internal Medicine 01/07/23 documented as of this encounter
--- OUTSIDE RECORDS SUMMARY | 2025-03-01 20:48 | XMS_ITS | Encounter Summary ---
Author Organization [facility], [facility] Address [address] [facility] [address] [place] [address] Phone Care Team Providers Care Natural Gas Technician Name Role Phone Kp Montanez DO Primary Care Provider [phone] Reason for Visit * Reason Comments Med Refill Encounter Details Date Type Department Care Team (Late st Contact Info) Description 05/08/2021 Refill [facility] [address] [facility] [address] [place] [address] Ghazal Schmitt NP [address] [facility] [address] [place] [address] Social History Tobacco Use Types [...] on filedocumented in this encounter Care Teams Natural Gas Technician Relationship Specialty Start Date End Date Kp Montanez DO [address] [place] [address] PCP - General Internal Medicine 01/07/23 documented as of this encounter
--- OUTSIDE RECORDS SUMMARY | 2025-03-01 20:48 | XMS_ITS | Encounter Summary ---
Author Organization [facility] Address [address] [place] [address] Care Team Providers Care Air Hammer Stripper Name Role Phone Dez Eavns MD Primary Care Provider [phone] Reason for Visit * Reason Onset Date Comments Follow Up 02/22/2025 Encounter Details Date Type Department Care Team (Late st Contact Info) Description 02/22/2025 Telephone [facility] [address] [facility] [address] [place] [address] Stephani Keen MD [address] [facility] [address] [place] [address] Follow Up Social History Tobacco Use Types Packs/Day Years [...] on file Legal Sex Male 2:43 AM ASSURANCE ASSOCIATE Gender Identity Not on file Sexual Orientation Not on file Occupation Industry Job Start Date Job End Date Not on file Not on file Not on file Not on file documented as of this encounter Miscellaneous Notes * Telephone Encounter - Jeanne Lagos RN - 02/22/2025 1:43 PM CDT Called and patient confirmed he has transferred to [place]. I charted the Remote from today andcalled [place]. They was able to pick him up on the website but not able to see the event. A Request was sent to Roselyn Harris to have the most recent Remote faxed at [phone] Attn Maggi. documented in this encounter Plan of Treatment Not on file documented as of this encounter Visit Diagnoses Not on filedocumented in this encounter Additional Health Concerns Assessment Noted Time PHQ-9 Depression Total Score: 1 06/29/19 2:57 AM ASSURANCE ASSOCIATE documented as of this encounter Care Teams Air Hammer Stripper Relationship Specialty Start Date End Date Dez Evans MD [address] [place] [address] PCP - General Family Practice 06/18/24 documented as of this encounter
--- OUTSIDE RECORDS SUMMARY | 2025-03-01 20:48 | XMS_ITS | Encounter Summary ---
Author Organization [facility], [facility] Address [address] [facility] [facility] [facility] [address] [place] [address] Phone Care Team Providers Care Artificial Flower Maker Name Role Phone Kp Montanez DO Primary Care Provider [phone] Reason for Visit * Reason Comments Med Refill Encounter Details Date Type Department Care Team (Late st Contact Info) Description 11/17/2021 Refill [facility] [address] [facility] [facility] [address] [place] [address] Antolin Weiss MD [address] [place] [address] Social History Tobacco Use Types [...] on filedocumented in this encounter Care Teams Artificial Flower Maker Relationship Specialty Start Date End Date Kp Montanez DO [address] [place] [address] PCP - General Internal Medicine 01/07/23 documented as of this encounter
--- OUTSIDE RECORDS SUMMARY | 2025-03-01 20:48 | XMS_ITS | Clinical Summary ---
Author Organization [facility] Address [address] [place] [address] Care Team Providers Care Guest Relations Representative Name Role Phone Dez Evans MD Primary Care Provider [phone] Allergies Active Allergy Reactions Criticality Noted Date [...] tablet Take 88 mcg by mouth daily director of early childhood education. 9 Active atorvastatin (LIPITOR) 40 mg tablet [...] sugar). 4 Active naloxone (NARCAN) 4 mg/spray [place], Non-Aerosol EMERGENCY USE ONLY: Administer 1 spray (4 mg) in one nostril one time. May repeat in alternating nostrils every 2-3 min until responsive or EMS arrives. 2 Each 3 5 Active sacubitriL-vals tommy (ENTRESTO) 24-26 mg Tablet Take 1 Tablet by mouth daily. 200 Tablet 3 07/03/2024 4:14 PM KENNEL OPERATOR 5 Active carvediloL (COREG) 12.5 mg tablet Take 1 Tablet (12.5 mg) by mouth 2 times daily. 30 Tablet 07/03/2024 4:14 PM KENNEL OPERATOR 5 Active isosorbide mononitrate (IMDUR) 60 mg Extended Release 24 hour tablet Take 1 Tablet (60 mg) by mouth daily in the morning. 30 Tablet 07/03/2024 4:14 PM KENNEL OPERATOR 5 Active HYDROcodone-fede taminophen (NORCO) 5-325 [...] (10/17/2022): Added automatically from request for surgery [id number] Scrotal pain 02/07/2021 Adenoma of both adrenal glands 05/24/2019 Overview (10/17/2022): Seen on CT abd at [facility] 10/[address] abd at [facility] 10/2018 Diverticulosis 05/24/2019 History of pulmonary [...] Overview (11/24/2020): secondary to fasciotomy Atherosclerosis of [place] co ronary artery of [place] heart with stable angina pectoris 08/18/2012 DM [...] Encounters Date Type Department Care Team Description 02/22/2025 8:00 AM CDT Procedure visit [facility] [address] [place] [address] [address] [place] [address] Ischemic dilated cardiomyopathy (CMS/HCC) (Primary Dx); VT (ventricular tachycardia); Automatic implantable cardioverter-defibril lator in situ 02/22/2025 Telephone [facility] [address] [facility] [address] [place] [phone] Stephani Keen MD Follow Up 02/22/2025 Telephone [facility] [address] [facility] [address] [place] [phone] Stephani Keen MD Follow Up 01/13/2025 External Device Data STL ABSTRACTION Provider, Abstract 01/05/2025 External Device Data STL ABSTRACTION Provider, Abstract 01/05/2025 External Device Data STL ABSTRACTION Provider, Abstract 12/04/2024 Telephone [facility] [place] [address] [place] [address] Shannan Goodwin MD Question from Last 3 Months Immunizations Immunization Administration Dates Next Due (ADACEL/BOOSTRIX)(10 YR UP) TDAP VACCINE, 0.5ML, IM 05/30/2021 (HEPLISAV-B)(18 YR UP) HEPAT ITIS B VACCINE CPG-ADJUVANTED (HEPB-CPG) 2-4 DOSE, IM 10/30/2022,08/25/2022,07/21/2022,06/23 (PNEUMOVAX 23)(50 YRS UP) PN EUMOCOCCAL POLYSACCHARIDE (PPV23) 0.5 ML, IM 09/18/2022,05/25/2019 (PREVNAR 20)(6 WKS UP) PNEUM OCOCCAL CONJUGATE VACCINE 20-VALENT (PCV20), POLYSACCHARIDE [id number] CONJUGATE, ADJUVANT 0.5 ML (PF) IM 06/26/2022 [...] on file Legal Sex Male 2:43 AM KENNEL OPERATOR Gender Identity Not on file Sexual [...] 11/05/2020, 10/08/2020 DIABETES HBA1C Q 6 MONTHS 07/20/20252024, 06/27/2024, 05/02/2023, Additional history exists DTAP/TDAP/TD VACCINES (2 - T d or Tdap) 05/30/2031 05/30/2021, 05/30/2021 ZOSTER VACCINE Completed 08/10/2020, 06/06/2020 Medical Devices Implanted Type Area Facilities Maintenance Assistant Device Identifier Shelf Expiration Date Model / Serial / Lot Clip Ligating Horizon Red [id number] - Csc - [id number] Implanted:Qty : 1 on 09/28/2022 by Guero Felder MD at [facility] Clip Left: Arm TELEFLEX INC [id number] 12/25/2026 [id number] / / [id number] Clip Ligating Horizon Med Ti [id number] - Csc - [id number] Implanted:Qty : 1 on 09/28/2022 by AlaGuero carranza MD at [facility] Clip Left: Arm TELEFLEX- WECK CLOSURE SYS [id number] 10/08/2026 [id number] / / [id number] Clip Ligating Horizon Red [id number] - [facility] - [id number] Implanted:Qty : 1 on 11/14/2022 by Jimmy Anaya MD at [facility] Clip Left: Arm TELEFLEX INC [id number] 12/25/2026 / / [id number] Clip Ligating Horizon Med Ti 278417 - [facility] - [id number] Implanted:Qty : 1 on 11/14/2022 by Jimmy Anaya MD at [facility] Clip Left: Arm TELEFLEX- WECK CLOSURE SYS [id number] 02/12/2027 / / [id number] Closure Perclose Prostyle Sut Mediate 72370-36 - [id number] Implanted:Qty : 1 on 05/03/2023 by Jay Bales MD at [facility] Closure Device Right: Groin SALAS- VASC DEVICE 01/17/2025 [id number] 3 / / [id number] Dev Closure Angioseal 6fr Vip 143548 - [id number] Implanted:Qty : 1 on 05/03/2023 by Jay Bales MD at [facility] Closure Device Right: Groin [facility] 10/11/2023 [id number] / / [id number] Dev Closure Angioseal 6fr Vip 466002 - [id number] Implanted:Qty : 1 on 06/19/2024 by Prince Barfield MD at [facility] Closure Device Right: Groin TERUMO- CARDIOVASC SYS 01/13/2025 [id number] / / [id number] Dev Icd Acticor 7 Vr-T Dx Df4 Hybrid 360374 - [id number] Implanted:Qty : 1 on 07/23/2024 by Stephani Keen MD at [facility] Defibrillator Right: Chest Wall BIOTRONIK INC [id number] 05/19/2026 [id number] / [id number] / Graft Vasc Propaten 4-1mfk83cz Y033719d - [id number] Implanted:Qty : 1 on 09/28/2022 by Guero Felder MD at [facility] Graft Left: Arm W L [employer] INC [id number] 04/02/2026 [id number] / [id number] 2026-03 Hemostatic Surgicel 1x2in 1960 - [id number] Implanted:Qty : 1 on 09/28/2022 by Guero Felder MD at [facility] Hemostatic Left: Arm J&J- ETHICON INC [id number] 02/16/20251960 / / [id number] Hemostatic Surgicel 1x2in 1960 - [id number] Implanted:Qty : 1 on 09/28/2022 by Guero Felder MD at [facility] Hemostatic Left: Arm J&J- ETHICON INC [id number] 12/17/20241960 / / [id number] Lead Endocardial Pamira S Dx 65/15 Rv W Atr Sensing 568502 - [id number] Implanted:Qty : 1 on 07/23/2024 by Stephani Keen MD at [facility] Lead Right: Chest Wall BIOTRONIK INC [id number] 05/19/2026 360772 / [id number] / Power Port Implanted:(Qu antity not on file) Explanted:(Qu antity not on file) Port Port- 9 Implanted: (Quantity not on file) Port Suture Perchik 2 Button Pouch [id number] - [id number] Implanted:Qty : 1 on 08/23/2023 at [facility] Screw [employer]GI[employer] [id number] / / Description:This is Not an I mplant Stent Implanted:(Qu antity not on file) Explanted:(Qu antity not on file) Stent Stent Synergy Xd 3.5x16mm Evrlms Elut [id number] - [id number] Implanted:Qty : 1 on 05/03/2023 by Jay Bales MD at [facility] Stent Left: Coronary [employer] PATRICK 01/01/2025 [id number] / / [id number] Stent Viabahn Hep 8mmx7.5xcm [id number] - [id number] Implanted:Qty : 1 on 10/23/2023 by Jimmy Anaya MD at [facility] Stent Left: Arm W Hailey GORE Lasso [employer] INC [id number] 12/23/2025 [id number] / [id number] / Procedures Procedure Name Priority Date/Time Associated Diagnosis Comments NE REM INTERROG PM/LDLS PM/IDS <90 D TECH REVIEW Routine 02/22/2025 7:21 AM CDT Ischemic dilated cardiomyopathy (CMS/HCC) VT (ventricular tachycardia) Automatic implantable cardioverter-defibril lator in situ NE INTERROGATION EVAL REMOTE </90 D 1/2/AIRBRUSH ARTIST LD DFB Routine 02/22/2025 7:21 AM CDT Ischemic dilated cardiomyopathy (CMS/HCC) VT (ventricular tachycardia) Automatic implantable cardioverter-defibril lator in situ HEMOGLOBIN A1C Routine 06/27/2024 5:39 AM KENNEL OPERATOR LIPID PANEL Routine 05/02/2023 9:36 PM KENNEL OPERATOR from Last 3 Months or Most Recently Relevant to Health Maintenance Results * NE INTERROGATION EVAL REMOTE </90 D 1/2/AIRBRUSH ARTIST LD DFB, NE REM INTERROG PM/LDLS PM/IDS <90 D TECHREVIEW [...] back. Per past notes patient follows in [place]. Comments: Biotronik remote transmission reveals normal single chamber ICD function with stable available threshold and impedance trends. Presenting EGM indicates No current EGM. See attached report for details. Stephani Keen MD CARDIAC SERVICES ORDERA BLES Edited Result - Final INTERFACE SYSTEM Refer to clinic/hospital department * (ABNORMAL) HEMOGLOBIN A1C (06/27/2024 5:39 AM KENNEL OPERATOR) HEMOGLOBIN A1C 6.6(H) <=5.6 % 06/29/2024 9:10 AM [facility] [employer]ights [facility] EST. AVG GLUCOSE, A1C 143 mg/dL 06/29/2024 9:10 AM [facility] Blood Collection / Unknown 06/27/2024 5:39 AM KENNEL OPERATOR 06/27/2024 6:05 AM KENNEL OPERATOR Narrative [facility] [employer] [facility] - 06/29/2024 9:10 AM KENNEL OPERATOR HGB A1C INTERPRETATION NORMAL: <5.7% PRE-DIABETES: 5.7 - 6.4% DIABETES: 6.5% OR GREATER Joey Vo DO CHEMISTRY ORDERABLES Final R esult Performing Organization Address [facility]/ZIP Co de Phone Number [facility] CLIA # [id number] [address] [place] [place] [phone] * (ABNORMAL) LIPID PANEL (05/02/2023 9:36 PM KENNEL OPERATOR) CHOLESTEROL 224(H) <200 mg/dL 05/03/2023 10:26 PM [facility] [employer] [facility] TRIGLYCERIDE 286(H) <150 mg/dL 05/03/2023 10:26 PM [facility] HDL 39(L) 40 - 59 mg/dL 05/03/2023 10:26 PM [facility] LDL CALCULATED 128(H) <100 mg/dL 05/03/2023 10:26 PM [facility] NON-HDL CHOLESTEROL 185(H) <130 mg/dL 05/03/2023 10:26 PM [facility] Blood Venipuncture / Unknown 05/02/2023 9:36 PM KENNEL OPERATOR 05/02/2023 9:51 PM KENNEL OPERATOR Narrative [facility] LABORATORY [facility] - 05/03/2023 10:26 PM KENNEL OPERATOR TOTAL CHOLESTEROL mg/dL Desirable <200 Borderline [...] Covarrubias MD CHEMISTRY ORDERABLES Final Resul t [facility] CLIA # [id number] [address] [place] [phone] from Last 3 Months or Most Recently Relevant to Health Maintenance Insurance [facility]ICA[facility] [id number] * Guarantor: SMITHA QUEEN II Account Type Relation to Patient Date of Phone Billing Address Personal/Family [address] [place] [id number] RX [employer] Commercial RX INFOCROSSING Medicaid RX OPTUM RX Member Subscriber Plan / Payer (Ef fective for All Dates) Name:Smitha Queen II, Junior Relation to Subscriber:Self Name:Smitha Queen II, Junior Payer ID:Not on file Type:RX Medicare Part D Address: [place] Advance Directives For more information, please contact: [phone] Documents on File Type Date Recorded Patient Melt Superintendant Expl anation Advance Directive POA 08/23/2014 4:06 [...] 2:16 AM 07/03/2024 6:07 PM Care Teams Guest Relations Representative Relationship Specialty Start Date End Date Dez Evans MD [address] [place] [phone] PCP - General Family Practice 06/18/24
--- OUTSIDE RECORDS SUMMARY | 2025-03-01 20:48 | XMS_ITS | Encounter Summary ---
Author Organization [facility], [facility] Address [address] [place] [address] Phone Care Team Providers Care Retention Manager Name Role Phone MontanezKp kevin Primary Care Provider [phone] Encounter Details Date Type Department Care Team (Late st Contact Info) Description 07/14/2024 [facility] [address] [place] [address] Ayad Monahan, [employer] [address] [place] [address] Social History Tobacco Use Types [...] 07/14/2024 The patient was seen for a diar-fe-jlxi visit as part of Transitional Care Management services. Attending Apartment Maintenance Worker: RITA MENENDEZ Dialysis Location: [facility] Schedule: Shift: 1 HOSPITALIZATION [...] 97.8*F Current Dialysis Vitals BP Sit: 140/78 AP/HOISTING MACHINE OPERATOR: -- Pulse: 79 CARE COORDINATION Post-discharge follow-up appointments reviewed with the patient. COMMENTS: following Cardiology EDUCATION Education relevant to the discharge diagnosis provided to the patient or caregiver VISIT DIAGNOSES CPT Code 27339 - High complexity, seen 8-14 days post discharge or moderate complexity, seen [id number] days of discharge. R07.9 Chest pain, unspecified N18.6, Z99.2 End stage renal disease;Dependence on renal dialysis Signed by: AYAD MONAHAN NP on 07/14/2024 at 01:27:20 PM Transcribed by: AYAD MONAHAN NP on 07/14/2024 at 01:27:20 PM documented in this encounter Plan of Treatment Not on file documented as of this encounter Visit Diagnoses Not on filedocumented in this encounter Care Teams Retention Manager Relationship Specialty Start Date End Date Kp Montanez DO [address] [place] [address] PCP - General Internal Medicine 01/07/23 documented as of this encounter
--- OUTSIDE RECORDS SUMMARY | 2025-03-01 20:48 | XMS_ITS | Clinical Summary ---
Author Organization [facility] Address [address] [place] [address] Care Team Providers Care Global Regulatory Affairs Manager Name Role Phone Kp Montanez Primary [...] for Pain. 15 Tablet 04/10/2018 11:19 AM CALL CENTER MANAGER 8 Active nitroglycerin (NITROSTAT) 0.4 mg Tablet, [...] tablet Take 88 mcg by mouth daily regulatory analyst. Active metFORMIN (GLUCOPHAGE) 500 mg tablet Take 500 mg by mouth 2 times daily with meals. Active isosorbide mononitrate (IMDUR) 30 mg Extended Release 24 hour tablet Take 1 Tablet (30 mg) by mouth daily regulatory analyst. 30 Tablet 9 Active metoprolol tartrate (LOPRESSOR) [...] Overview (08/18/2012): secondary to fasciotomy Atherosclerosis of [place] co ronary artery of [place] heart with stable angina pectoris 08/18/2012 DM (diabetes mellitus), type 2, uncontrolled 05/2012 Hypothyroidism 08/18/2012 Benign hypertension CKD (chronic kidney disease) stage 2, GFR 60-89 ml/min Resolved Problems Problem Noted Date Diagnosed Date Resolved Date Acute chest pain 09/06/2018 10/27/2018 Elevated troponin 09/06/2018 10/27/2018 Grade I diastolic dysfunction 07/06/2018 10/27/2018 Chest pain 04/04/2018 07/06/2018 CAD in [place] artery 07/02/2013 019 CHF (congestive heart failure) [...] declined 09/05/2018 How often do you attend nondenominational or amish serv ices? Patient declined 09/05/2018 Do you belong to any clubs o r organizations such as nondenominational groups, unions, fraGabstr or athletic groups, or school groups? Patient [...] history exists Medical Devices Implanted Type Area Automobile Drivers Device Identifier Shelf Expiration Date Model / Serial / Lot Port-06/04/2018 Implanted:2018 (Quantity not on file) Port Procedures Procedure Name Priority Date/Time Associated Diagnosis Comments LIPID PANEL Routine 01/25/2019 2:00 AM CDT HEMOGLOBIN A1C Routine 05/03/2014 9:04 AM CALL CENTER MANAGER DM (diabetes mellitus), type 2, uncontrolled HTN (hypertension), benign from Last 3 Months or Most Recently Relevant to Health Maintenance Results * (ABNORMAL) LIPID PANEL (01/25/2019 2:00 AM CDT) CHOLESTEROL 133 <200 mg/dL 01/25/2019 2:42 AM CDT [facility] TRIGLYCERIDE 177(H) <150 mg/dL 01/25/2019 2:42 AM CDT [facility] HDL 33(L) 40 - 59 mg/dL 01/25/2019 2:42 AM CDT [facility] LDL CALCULATED 65 <100 mg/dL 01/25/2019 2:42 AM CDT [facility] NON-HDL CHOLESTEROL 100 <130 mg/dL 01/25/2019 2:42 AM CDT [facility] Blood Venipuncture / Unknown 01/25/2019 2:00 AM CDT 01/25/2019 2:15 AM CDT Narrative [facility] - 01/25/2019 2:42 AM CDT TOTAL [...] CHEMISTRY ORDERABLES Final Result Performing Organization Address [facility] de Phone Number [facility] CLIA# [id number] [address] [place] [phone] * (ABNORMAL) HEMOGLOBIN A1C (05/03/2014 9:04 AM CALL CENTER MANAGER) HEMOGLOBIN A1C 9.0(H) 4.0 - 6.0 % [facility] Comment: This test was performed on a [employer] VARIANT II instrument using HPLC methodology. Blood specimen (specimen) 05/03/2014 9:04 AM CALL CENTER MANAGER 05/03/2014 9:05 AM CALL CENTER MANAGER Nicolasa TORRES CHEMISTRY ORDERABLES Final R esult Performing Organization Address City/[facility]/ZIP Co de Phone Number INTERFACE SYSTEM Refer to clinic/hospital department [facility] CLIA# [id number] [address] [place] [address] from Last 3 Months or Most Recently Relevant to Health Maintenance Insurance [place] [address] DUAL COMPLETE MCR PPO D-SNP RX OPTUM RX Member Subscriber Plan / Payer (Ef fective for All Dates) Name:Rei Queen II Relation to Subscriber:Self Name:Rei Queen II Payer ID:Not on file Group ID:[id number] Type:RX Medicare Part D Address: [address] Advance Directives For more information, please contact: [phone] * Full Code (Latest Code Status on [...] 9:34 PM 04/10/2018 3:22 PM Care Teams Global Regulatory Affairs Manager Relationship Specialty Start Date End Date Kp Montanez DO [address] [address] PCP - General Internal Medicine 04/04/18
--- OUTSIDE RECORDS SUMMARY | 2025-03-01 20:48 | XMS_ITS | Encounter Summary ---
Author Organization [facility] Address [address] [place] [address] Care Team Providers Care Women'S Lacrosse Coach Name Role Phone Dez Evans MD Primary Care Provider [phone] Reason for Visit * Reason Onset Date Comments Follow Up 02/22/2025 Encounter Details Date Type Department Care Team (Late st Contact Info) Description 02/22/2025 Telephone [facility] [address] [facility] [address] [place] [address] Stephani Keen MD [address] [facility] [address] [place] [address] Follow Up Social History Tobacco Use [...] on file Legal Sex Male 2:43 AM BAND MASTER Gender Identity Not on file Sexual Orientation Not on file Occupation Industry Job Start Date Job End Date Not on file Not on file Not on file Not on file documented as of this encounter Miscellaneous Notes * Telephone Encounter - Roselyn Naylor - 02/22/2025 1:09 PM CDT Pt returning missed call - connected to Jeanne. * Telephone Encounter - Jeanne Lagos RN - 02/22/2025 12:37 PM CDT Called and left message asking patient to call me back. Remote was received that indicates he was treated with ATP possible for RVR. Per past notes patient follows at [place]. I left message asking him to call back to clarify who is is following with. documented in this encounter Plan of Treatment Not on file documented as of this encounter Visit Diagnoses Not on filedocumented in this encounter Additional Health Concerns Assessment Noted Time PHQ-9 Depression Total Score: 1 06/29/19 2:57 AM BAND MASTER documented as of this encounter Care Teams Women'S Lacrosse Coach Relationship Specialty Start Date End Date Dez Evans MD [address] [place] [phone] PCP - General Family Practice 06/18/24 documented as of this encounter
--- OUTSIDE RECORDS SUMMARY | 2025-03-01 20:48 | XMS_ITS | Clinical Summary ---
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 [...] Overview (04/26/2020): Seen on CT abd at [facility] 10/2018 Coronary arteriosclerosis 05/24/2019 Noncompliance with medication regimen 10/27/2018 Essential hypertension 09/06/2018 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 ilure 09/06/2018 Normocytic anemia 09/06/2018 Chronic kidney disease stage 4 06/26/2018 Overview (2020): Update for Diagnosis Load 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 06/26/2018 Combined hyperlipidemia 01/15/2013 Acquired hypothyroidism 08/18/2012 Encounters Date Type Department Care Team Description 02/25/2025 Orders Only [facility] [address] [place] [address] Yesi Madison MD 02/18/2025 [facility] [address] [place] [address] Ghazal Schmitt NP End stage renal disease; Dependence on renal dialysis 02/18/2025 Orders Only [facility] [address] [place] [address] Yesi Madison MD 02/11/2025 Orders Only [facility] [address] [place] [address] Yesi Madison MD 02/09/2025 [facility] [address] [place] [address] Yesi Madison MD End stage renal disease; Dependence on renal dialysis 02/02/2025 [facility] [address] [place] [address] Ghazal Schmitt NP End stage renal disease; Dependence on renal dialysis 02/01/2025 Orders Only [facility] [address] [place] [address] Yesi Madison MD 01/20/2025 Orders Only [facility], [facility] [address] [place] [address] Yesi Madison MD 01/19/[address] [place] [address], [facility] [address] [place] [address] Zoey Johnson NP End stage renal disease; Dependence on renal dialysis 01/14/2025 [facility], [facility] [address] [place] [address] Yesi Madison MD 01/12/[address] [place] [address], [facility] [address] [place] [address] Zoey Johnson, ELTON End stage renal disease; Dependence on renal dialysis 01/07/2025 Orders Only [facility], [facility] [address] [place] [address] Yesi Madison MD 01/05/[address] [place] [address], [facility] [address] [place] [address] Yesi Madison MD End stage renal disease; Dependence on renal dialysis 12/31/2024 Orders Only [facility], [facility] [address] [place] [address] Yesi Madison MD 12/29/[address] [place], [place] [address], [facility] [address] [place] [address] Zoey Johnson NP End stage renal disease; Dependence on renal dialysis 12/25/[address] [place], [place] [address]rology [facility], [facility] [address] [place] [address] Ghazal Schmitt NP End stage renal disease; Dependence on renal dialysis 12/25/2024 Orders Only [facility], [facility] [address] [place] [address] Yesi Madison MD 12/22/2024 Orders Only [facility] [address] [place] [address] Yesi Madison MD 12/22/2024 Documentation Only [facility], [address] [place] [address] Pamela Sevilla DO 12/22/2024 Documentation Only [facility] [address] [place] [address] Yoselyn Vila MA 12/17/2024 Orders Only [facility], [facility] [address] [place] [address] Yesi Madison MD 12/10/2024 Orders Only [facility], [facility] [address] [place] [address] Yesi Madison MD 12/03/2024 Orders Only [facility], [facility] [address] [facility] [address] [place] [address] Yesi Madison MD 12/01/2024 Treatment [facility], [facility] [address] [place] [address] Zoey Johnson, DIRECTOR OF GRADUATE MEDICAL EDUCATION End stage renal disease; Dependence on renal [...] Date/Time Associated Diagnosis Comments HEMATOLOGY Routine 02/25/2025 [facility] RESULTS Routine 02/18/2025 HD [...] 12/17/2024 HEMATOLOGY Routine 12/10/2024 HEMATOLOGY Routine 12/03/2024 from Last 3 Months Results * (ABNORMAL) HEMATOLOGY (02/25/2025) Only the most recent of11 resultswithin the time period is included. Hemoglobin 11.2(L) 14.0 - 18.0 g/dL [facility] Hemoglobin x 3 33.6(L) 42.0 - 54.0 % [facility] 02/25/2025 02/26/2025 10: 59 AM CDT Narrative [facility] - 02/26/2025 Unless otherwise specified, test(s) performed at: [facility], [address] [place] [address] COMMISSIONING AGENT: Jose Martin Mariscal M.D. For any questions, please call customer service at FREQUENCY:OTHER Resulting Agency Comment Specimen source: Blood Yesi Madison MD LAB BLOOD ORDERABLES Final Re sult [facility] See order comments or contact performing lab Unknown, [place] * HD KINETICS (02/18/2025) Only the most recent of3 resultswithin the time period is included. % Urea Reduction 77 65 - 80 % [facility] 02/18/2025 02/19/2025 10: 57 AM CDT Narrative Resulting Agency Comment Specimen source: Plasma us Yesi Madison MD LAB BLOOD ORDERABLES Final Re sult [facility] See order comments or contact performing lab Unknown, [place] * POST CHEMISTRY (02/18/2025) Only the most recent of3 resultswithin the time period is included. BUN Post Dialysis 15 6 - 19 mg/dL [facility] 02/18/2025 02/19/2025 10: 57 AM CDT Narrative [facility] - 02/19/2025 Unless otherwise specified, test(s) performed at: [facility], [address] [place] [id number] COMMISSIONING AGENT: Jose Martin Mariscal M.D. For any questions, please call customer service at FREQUENCY:MONTHLY Resulting Agency Comment Specimen source: Plasma us Yesi Madison MD LAB BLOOD ORDERABLES Final Re sult [facility] See order comments or contact performing lab Unknown, [place] * (ABNORMAL) [facility] Chemistry (02/18/2025) Only the most recent of6 resultswithin the time period is included. BUN [...] Saturation (TSat) 24 20 - 55 % [facility] 02/18/2025 02/19/2025 11: 36 AM CDT Narrative [facility] - 02/19/2025 Unless otherwise specified, test(s) performed at: [facility], [address] [place] [address] COMMISSIONING AGENT: Jose Martin Mariscal M.D. For any questions, please call customer service at FREQUENCY:MONTHLY Resulting Agency Comment Specimen source: Serum Yesi Madison MD LAB BLOOD ORDERABLES Final Re sult [facility] See order comments or contact performing lab Unknown, [place] * [facility] Lab Results (02/18/2025) Only the most recent of3 resultswithin the time period is included. Pathologist [facility] spKt/V Gotch 1.71 [facility] eKdrt/V 1.47 [facility] WSTDKT/V 2.5 [facility] nPCR_HD 1.17 [facility] eNPCR 1.09 [facility] spKt/V (Daugirdas II) 1.68 [facility] eKt/V Gotch 1.47 [facility] Center eKt/V (Tattersall) 1.45 [facility] PCR 81.14 [facility] 02/18/2025 02/18/2025 [facility] Ordering Provider LAB BLOOD ORDERABLES Final Result [facility] Contact Performing lab Unknown, [place] * (ABNORMAL) THYROIDS (01/20/2025) Pathologist [facility] TSH 3.923(H) 0.300 - 3.000 mIU/L [facility] Comment: The reference range of 0.300-3.000 [...] ORDERABLES Final Re sult Performing Organization Address [facility] Co de Phone Number [facility] See order comments or contact performing lab Unknown, [place] * SPECIAL CHEMISTRY (01/20/2025) Only the most recent of2 resultswithin the time period is included. Pathologist [facility] Creatine Kinase (CK/CPK) 34 30 - 223 U/L [facility] 01/20/2025 01/21/2025 4:1 0 PM CDT Narrative [facility] - 01/21/2025 Unless otherwise specified, test(s) performed at: [place] [address] COMMISSIONING AGENT: Jose Martin Mariscal M.D. For any questions, please call customer service at FREQUENCY:MONTHLY Resulting Agency Comment Specimen source: Serum us Yesi Madison MD LAB BLOOD BANK TEST ORDERABLE S Final Result Performing Organization Address [facility] de Phone Number [facility] See order comments or contact performing lab Unknown, [place] * IMMUNO CHEMISTRY (01/20/2025) Only the most recent of2 resultswithin the time period is included. [facility] Hepatitis C Antibody Nonreactive Nonreactive [facility] Comment: No HCV antibody detected. The above test result was obtained using Siemens Viewpostaur XP chemiluminescent method. Results obtained with different assay methods or kits cannot be used interchangeably. S/CO Ratio <0.02 0.00 - 0.79 [facility] Comment: s/co ratio Interpretation Supplemental testing <0.80 Nonreactive No further testing required. 0.80-0.99 Equivocal HCV RNA Quantitative Real-Time PCR is recommended. 1.00->11.00 Reactive HCV RNA Quantitative Real-Time PCR is recommended to distinguish active from resolved cases. 01/20/2025 01/21/2025 4:1 0 PM CDT Narrative Resulting Agency Comment Specimen source: Serum Yesi Madison MD LAB BLOOD ORDERABLES Final Re sult Performing Organization Address [facility] de Phone Number [facility] See order comments or contact performing lab Unknown, [place] * TRACE ELEMENTS (01/20/2025) Aluminum <5 0 - 10 mcg/L [facility] Comment: This test was developed and its performance characteristics determined by [facility]. It has not been cleared or approved by the FDA. The laboratory is regulated under CLIA as qualified to perform high complexity testing. This test is used for clinical purposes. It should not be regarded as investigational or for research. 01/20/2025 01/21/2025 10: 21 AM CDT Narrative [facility] - 01/21/2025 Unless otherwise specified, test(s) performed at: [facility], [address] [place], [place] [id number] COMMISSIONING AGENT: Jose Martin Mariscal M.D. For any questions, please call customer service at FREQUENCY:MONTHLY Resulting Agency Comment Specimen source: Serum Yesi Madison MD LAB BLOOD ORDERABLES Final Re sult Performing Organization Address [facility] de Phone Number [facility] [employer] [facility] See order comments or contact performing lab Unknown, [place] from Last 3 Months Insurance [facility] Medicare Care Teams Prop Sawyer Relationship Specialty Start Date End Date Kp Montanez DO [address] [place] [address] PCP - General Internal Medicine 01/07/23
--- OUTSIDE RECORDS SUMMARY | 2025-03-01 20:48 | XMS_ITS | Encounter Summary ---
Author Organization [facility], [facility] Address [address] [facility] [address] [place] [address] Phone Care Team Providers Care Sales Representative Consultant Name Role Phone Kp Montanez DO Primary Care Provider [phone] Reason for Visit * Reason Comments Med Refill Encounter Details Date Type Department Care Team (Late st Contact Info) Description 03/07/2022 [facility] [address] [place] [address] Ghazal Schmitt, SPONGE CLIPPER [address] [facility] [address] [place] [address] Chronic combined systolic and diastolic [...] failure documented in this encounter Care Teams Sales Representative Consultant Relationship Specialty Start Date End Date Kp Montanez DO [address] [place] [address] PCP - General Internal Medicine 01/07/23 documented as of this encounter
--- OUTSIDE RECORDS SUMMARY | 2025-03-01 20:48 | XMS_ITS | Encounter Summary ---
Author Organization [facility], [facility] Address [address] [place] [address] Phone Care Team Providers Care Scientist Engineer Name Role Phone Kp Montanez Primary Care Provider [phone] Encounter Details Date Type Department Care Team (Late st Contact Info) Description 12/24/2018 Orders Only [email or web address] [address] [place] [address] Antolin Weiss MD [address] [place] [address] Chronic kidney disease stage 3; [...] Mckeon MA - 12/17/2018 2:15 PM CDT [facility] [address] [place] [address] us Antolin Weiss MD LAB BLOOD ORDERABLES Fi nal Result * PTH, intact (CKD3a) (12/17/2018 1:55 PM CDT) Parathyroid Hormone, Intact 119.3 pg/mL Blood specimen (specimen) 12/17/2018 1:55 PM CDT Leslie Mckeon MA - 12/17/2018 2:15 PM CDT [facility] [address] [place] [address] us Antolin Weiss MD LAB BLOOD ORDERABLES Fi nal Result * (ABNORMAL) Urine albumin / creatinine ratio (12/17/2018 1:55 PM CDT) Pathologist [facility] Urine Microalbumin 28 mg/dL Creatinine, Urine Random 76.2 mg/dL Microalb/Creat Ratio 367(A) 30 - 300 mg/g Creat Urine specimen (specimen) 12/17/2018 1:55 PM CDT Antolin Weiss MD LAB URINE ORDERABLES Fi nal Result * CBC (CKD3a) (12/17/2018 1:55 PM CDT) Pathologist [facility] WBC 8.8 K/uL Red Blood Cell Count [...] Benson MA - 12/17/2018 2:15 PM CDT [facility] [address] [place] [address] Antolin Weiss MD LAB BLOOD ORDERABLES Fi nal Result * (ABNORMAL) RFP (CKD3a) (12/17/2018 1:55 PM CDT) Pathologist [facility] Albumin 4.2 3.5 - 5.0 g/dL BUN [...] Mckeon MA - 12/17/2018 2:15 PM CDT [facility] [address] [place] [address] us Antolin Weiss MD LAB BLOOD ORDERABLES Fi nal Result documented in this encounter Visit Diagnoses Diagnosis Chronic kidney disease stage 3 (HCC) Type 2 diabetes mellitus with diabetic chronic kidney disease (HCC) documented in this encounter Care Teams Scientist Engineer Relationship Specialty Start Date End Date Kp Montanez DO [address] [place] [address] PCP - General Internal Medicine 01/07/23 documented as of this encounter
--- OUTSIDE RECORDS SUMMARY | 2025-03-01 20:48 | XMS_ITS | Encounter Summary ---
Author Organization [facility], [facility] Address [address] [place] [address] Phone Care Team Providers Care Mandolin Repair Person Name Role Phone MontanezKp kevin Primary Care Provider [phone] Encounter Details Date Type Department Care Team (Late st Contact Info) Description 02/18/2025 [facility] [address] [place] [address] Ghazal Schmitt NP [address] [place] [address] End stage renal disease; Dependence [...] Rei Queen, 1970, 54y, M Dialysis Location: [facility] Attending Felt Hanger: Yesi Madison Service Date: 02/18/2025 Service Provider: [...] Admission Date 12/12/24 Discharge Date 12/13/24 Comments: [facility] with one pci: now has hd seven [...] dialysis documented in this encounter Care Teams Mandolin Repair Person Relationship Specialty Start Date End Date Kp Montanez DO [address] [place] [address] PCP - General Internal Medicine 01/07/23 documented as of this encounter
--- NOTE | 2025-03-01 20:50 | CTR_ITS ---
PROCEDURE INFORMATION: Exam: CT Lumbar Spine Without Contrast Exam date and time: 03/01/2025 9:04 PM Age: 54 years old Clinical indication: Injury or trauma; Fall; Blunt trauma (contusions or hematomas); Additional info: Fall/back pain TECHNIQUE: Imaging protocol: Computed tomography of the lumbar spine without contrast. Radiation optimization: All CT scans at this facility use at least one of these dose optimization techniques: automated exposure control; mA and/or kV adjustment per patient size (includes targeted exams where dose is matched to clinical indication); or iterative reconstruction. COMPARISON: CT lumbar spine wo con* [id number] 11/27/2023 5:00 PM RADIATION DOSE METRICS: Total DLP (mGy-cm): 1078.1 FINDINGS: Bones/joints: No acute fracture. Normal alignment. No significant disc bulge or herniation. No severe spinal canal stenosis. No significant neural foraminal narrowing. Small anterior multilevel osteophytes lumbar spine. Soft tissues: No acute abnormality. Vascular calcifications. Bibasilar atelectasis. CT/CT lumbar spine wo con* [id number] IMPRESSION: No acute lumbar spine fracture.
--- NOTE | 2025-03-01 20:50 | CTR_ITS ---
PROCEDURE INFORMATION: Exam: CT Thoracic Spine Without Contrast Exam date and time: 03/01/2025 9:04 PM Age: 54 years old Clinical indication: Injury or trauma; Fall; Blunt trauma (contusions or hematomas); Additional info: Fall/back pain TECHNIQUE: Imaging protocol: Computed tomography of the thoracic spine without contrast. Radiation optimization: All CT scans at this facility use at least one of these dose optimization techniques: automated exposure control; mA and/or kV adjustment per patient size (includes targeted exams where dose is matched to clinical indication); or iterative reconstruction. COMPARISON: CR XR thoracic spine 3V* [id number] 04/08/2019 8:32 AM RADIATION DOSE METRICS: Total DLP (mGy-cm): 129.7 FINDINGS: Tubes, catheters and devices: ICD leads. Bones/joints: Multilevel degenerative changes in the thoracic spine including degenerative disc disease and anterior osteophyte formation. No acute fracture or subluxation. Soft tissues: No acute abnormality. Vasculature: Vascular calcifications. Lungs: Calcified granuloma left lung. Bibasilar atelectasis. CT/CT thoracic spin wo con* [id number] IMPRESSION: No acute fracture or subluxation.
--- NOTE | 2025-03-01 20:51 | CTR_ITS ---
PROCEDURE INFORMATION: Exam: CT Head Without Contrast Exam date and time: 03/01/2025 8:57 PM Age: 54 years old Clinical indication: Injury or trauma; Fall; Blunt trauma (contusions or hematomas); Additional info: Fall/hit head/on blood thinners TECHNIQUE: Imaging protocol: Computed tomography of the head without contrast. Radiation optimization: All CT scans at this facility use at least one of these dose optimization techniques: automated exposure control; mA and/or kV adjustment per patient size (includes targeted exams where dose is matched to clinical indication); or iterative reconstruction. COMPARISON: CT head wo/w con [id number] 12/12/2024 2:15 PM RADIATION DOSE METRICS: Total DLP (mGy-cm): 1287.38 FINDINGS: Brain: Basal cisterns are patent. No hemorrhage, mass effect or extra-axial collection. Martel-white matter differentiation is preserved. No acute intracranial abnormality. Cerebral ventricles: No ventriculomegaly. Paranasal sinuses: Visualized sinuses are unremarkable. No fluid levels. Mastoid air cells: Visualized mastoid air cells are well aerated. Orbital cavities: Evidence of bilateral cataract surgery. Otherwise the intraorbital contents are unremarkable. Bones: Unremarkable. No acute fracture. Soft tissues: Unremarkable. CT/CT head wo con* [id number] IMPRESSION: No acute intracranial abnormality.
--- NOTE | 2025-03-01 20:51 | ECG_ITS ---
[employer] Test Date: 2025-03-01 Pat Name: Rei Queen Department: Room: Gender: Male Designer: : 1970 Requested By: Erasmo Castro Order Number: [id number] Pena MD: Paulo Momin M.D. Measurements Intervals [place] Rate: 64 P: 40 MD: 196 QRS: 7 QRSD: 132 T: 114 QT: 443 QTc: 458 Interpretive Statements SINUS RHYTHM INTRAVENTRICULAR CONDUCTION DELAY [130+ ms QRS DURATION] POSSIBLE ANTERIOR MYOCARDIAL INFARCTION , OF INDETERMINATE AGE [30 ms Q WAVE IN V3/V4, OR R < 0.2 mV IN V4] Compared to ECG 02/25/2025 14:11:04 NO SIGNIFICANT CHANGE Electronically Signed On 03-03-2025 23:12:28 CDT by Paulo Momin M.D. [email or web address]
--- NOTE | 2025-03-01 20:51 | CTR_ITS ---
PROCEDURE INFORMATION: Exam: CT Cervical Spine Without Contrast Exam date and time: 03/01/2025 8:57 PM Age: 54 years old Clinical indication: Injury or trauma; Fall; Blunt trauma; Additional info: Fall/hit head/on thinner TECHNIQUE: Imaging protocol: Computed tomography of the cervical spine without contrast. Radiation optimization: All CT scans at this facility use at least one of these dose optimization techniques: automated exposure control; mA and/or kV adjustment per patient size (includes targeted exams where dose is matched to clinical indication); or iterative reconstruction. COMPARISON: CT cervical spin wo con* [id number] 11/06/2024 5:51 PM RADIATION DOSE METRICS: Total DLP (mGy-cm): 244.87 FINDINGS: Tubes, catheters and devices: Left jugular central venous catheter with tip off image. Right ICD with leads off image. Bones: No acute fracture or subluxation. Marked degenerative disc disease C5-C6, C6-C7. Lungs: Lung apices are normal. Vasculature: Vascular calcifications. Soft tissues: Unremarkable. CT/CT cervical spin wo con* [id number] IMPRESSION: No acute fracture or subluxation.
[2025-03-01 20:55] VITALS: BP 123/41
--- NOTE | 2025-03-01 21:00 | W.ED.FALL ---
HPI - Fall General: Chief Complaint: Fall Stated Complaint: fall Time Seen by Provider: 03/01/25 20:45 Source: patient Mode of arrival: ambulatory Limitations: no limitations History of Present Illness: Patient is a 54-year-old male with extensive past medical history, notably end-stage renal disease on dialysis, coronary artery disease, DVT with chronic anticoagulation on Eliquis and Plavix, type 2 diabetes, and hypertension who was presented to the emergency department by ambulance secondary to a fall that occurred just an hour prehospital. Patient recently was discharged from the hospital yesterday, he states that his arms and legs have been shaking all day and his legs gave out on him while at home causing him to fall and struck his head. Also is reporting pain down his back, stating it is severe at this time. He has been seen here numerous times in the past. He arrives in a c-collar. No focal neurological deficit reported at this time. He is not endorsing any visual changes. He states that he has chest pain and shortness of breath all the time. Requesting something for pain. MD complaint: fall Onset (ago): hour(s) Fall from: standing Place fall occurred: home Loss of consciousness: None Prolonged down time: no Symptoms prior to fall: other ( shaking ) Location of injury: head and back Associated symptoms-after fall: Reports headache(s) and neck pain; Denies abdominal pain, chest pain or lightheadedness Related Data Home Medications ?Medication ?Instructions ?Recorded ?Confirmed diphenhydramine HCl 25 mg tablet 50 mg PO DAILY PRN Allergy Symptoms 05/02/23 02/25/25 (Benadryl Allergy) insulin lispro 100 unit/mL See Rx Instructions .Route .COMPLEX 05/02/23 02/25/25 subcutaneous pen (Humalog KwikPen (U-100) Insulin) vit B,C-folic ac 800 mcg-zinc 12.5 1 tab PO BEDTIME 10/29/23 02/25/25 mg-selen-D3 2,000 unit-vit E tablet (RenaPlex-D) tizanidine 2 mg tablet 2 mg PO BID PRN Muscle Spasm 03/24/24 02/25/25 promethazine 25 mg tablet 25 mg PO Q6H PRN Nausea 04/21/24 02/25/25 acetaminophen 500 mg tablet 1,000 mg PO QID PRN Pain 06/04/24 02/25/25 (Tylenol Extra Strength) apixaban 2.5 mg tablet (Eliquis) 2.5 mg PO BID 12/08/24 02/25/25 gabapentin 300 mg capsule 300 mg PO BID 12/08/24 02/25/25 insulin degludec 200 unit/mL (3 40 unit SUBCUT QAM 12/08/24 02/25/25 mL) subcutaneous pen (Tresiba FlexTouch U-200 insulin) levothyroxine 88 mcg tablet 88 mcg PO QAM 12/08/24 02/25/25 ranolazine 1,000 mg 1,000 mg PO BID 12/08/24 02/25/25 tablet,extended release,12 hr hydrocodone 7.5 mg-acetaminophen 1 tab PO Q6H PRN Pain 01/07/25 02/25/25 325 mg tablet bumetanide 2 mg tablet 2 mg PO DAILY 02/22/25 02/25/25 sacubitril 24 mg-valsartan 26 mg 2 tab PO DAILY 02/22/25 02/25/25 tablet (Entresto) trazodone 100 mg tablet 300 mg PO BEDTIME PRN insomnia 02/22/25 02/25/25 dorzolamide 22.3 mg-timolol 6.8 1 drp ophthalmic (eye) BID 02/25/25 02/25/25 mg/mL eye drops testosterone cypionate 200 mg/mL 200 mg IM .Q30D 02/25/25 02/25/25 intramuscular oil Previous Rx's ?Medication ?Instructions ?Recorded nitroglycerin 0.4 mg sublingual 0.4 mg sublingual Q5M PRN Chest 08/27/23 tablet (Nitrostat) Pain #25 tabs blood-glucose sensor (Dexcom G7 #9 ea 12/14/24 Sensor device) semaglutide 2 mg/dose (8 mg/3 mL) 2 mg (0.75 mL) SUBCUT Q7D #9 mL 01/01/25 subcutaneous pen injector (Ozempic) atorvastatin 80 mg tablet (Lipitor) 80 mg PO BEDTIME #30 tabs 02/24/25 clopidogrel 75 mg tablet 75 mg PO DAILY #100 tabs 02/24/25 prednisone 20 mg tablet 40 mg (2 x 20 mg) PO DAILY 5 days 02/25/25 #10 tabs amiodarone 200 mg tablet (Pacerone) 200 mg PO BID #60 tabs 02/28/25 levofloxacin 500 mg tablet 500 mg PO Q48H #4 tabs 02/28/25 metoprolol tartrate 25 mg tablet 12.5 mg (1/2 x 25 mg) PO 02/28/25 BID@0900,2100 #30 tabs Allergies Allergy/AdvReac Type Severity Reaction Status Date / Time Iodinated Contrast Media Allergy Severe ALGY-Difficulty Verified 03/01/25 20:49 Breathing iodine Allergy Severe ALGY-Difficulty Verified 03/01/25 20:49 Breathing metoclopramide (From Reglan) Allergy Severe ALGY-Difficulty Verified 03/01/25 20:49 Breathing nalbuphine (From Nubain) Allergy Severe ADR-Diarrhe Verified 03/01/25 20:49 a naproxen (From Naprosyn) Allergy Severe ADR-Vomitin Verified 03/01/25 20:49 g Sulfa (Sulfonamide Allergy Severe ALGY-Difficulty Verified 03/01/25 20:49 Antibiotics) Breathing ketorolac Allergy Intermediate ADR-Nausea Verified 03/01/25 20:49 ondansetron (From Zofran) Allergy Intermediate ADR-Abdominal Verified 03/01/25 20:49 Pain prochlorperazine (From Allergy Intermediate ADR-Irritab Verified 03/01/25 20:49 Compazine) le codeine AdvReac Severe ALGY-Anaphy Verified 03/01/25 20:49 laxis haloperidol (From Haldol) AdvReac Intermediate ADR-Irritab Verified 03/01/25 20:49 le Review of Systems General: Reports: 10 or more systems reviewed and unremarkable except in HPI and below Const: Reports: other (fall/hit head); Denies: fever(s), chills or fatigue Eyes: Denies: change in vision ENMT: Denies: throat pain, ear or mastoid pain or nasal discharge Card: Denies: chest pain, palpitations, swelling of feet/ankles or lightheadedness Resp: Denies: dyspnea, productive cough or wheezing GI: Denies: abdominal pain, nausea, vomiting, diarrhea or constipation : Denies: flank pain, difficulty urinating, dysuria or urinary frequency Musc: Reports: neck pain and back pain; Denies: joint pain Skin/Breast: Denies: rash Neuro: Reports: headache(s); Denies: numbness in extremities or weakness in extremities PFSH ED PFSH: Medical History History of pulmonary embolism DVT (deep venous thrombosis) (~03/2020) Proximal left subclavian, basilic and brachial veins, started eliquis this stay, felt present prior to admission Chronic pain Paroxysmal atrial fibrillation Ischemic cardiomyopathy Contrast media allergy Thoracic disc disease Non-pressure chronic ulcer of other part of left foot limited to breakdown of skin Bilateral pes planus Hammertoe of left foot Rupture of extensor tendon of foot Kidney failure Type 2 diabetes mellitus with other circulatory complication, 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 Atherosclerotic heart disease of tejon coronary artery with other forms of angina pectoris hx of CAD with prior stenting of proximal LAD, LCx, RCA End stage renal disease on dialysis Hypothyroidism Generalized anxiety disorder Major depressive disorder, recurrent severe without psychotic features Pericarditis Essential hypertension Psychiatric care 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 mellitus CRF (chronic renal failure) Chronic right SI joint pain Chronic systolic heart failure UTI (urinary tract infection) Peripheral arterial disease PVD (peripheral vascular disease) Worsening angina Angina at rest Uremic encephalopathy D-dimer, elevated Acute on chronic congestive heart failure Acute kidney injury superimposed on CKD GERD (gastroesophageal reflux disease) Alcohol use disorder, moderate, in sustained remission Chronic kidney disease -baseline Cr appears to be around 1.5 Onychodystrophy Chronic anticoagulation Eliquis Osteoarthritis of spine Hyperlipidemia Depression Anemia Foot drop, left H/O acute myocardial infarction Surgical History Peritoneal dialysis catheter in situ (06/15/21) History of appendectomy 1995 History of excision of mass 06/08/2019: Subcutaneous mass on back History of removal of Port-a-Cath Port-A-Cath in place H/O vasectomy Hx of cholecystectomy History of coronary artery stent placement 5x H/O skin graft History of inguinal hernia repair, bilateral 2000 H/O removal of testicle left H/O colonoscopy (11/14/20) 08/2015 H/O esophagogastroduodenoscopy (11/14/20) 08/2015 Family History Grandfather Cancer skin cancer Parkinson disease Brother Hypertension Father Heart disease Mother Hypertension Stroke Aneurysm Grandmother Aneurysm Other Crohn's disease Denies family history of Anesthesia complication Bleeding disorder Social History Smoking and tobacco/nicotine status: never used tobacco/nicotine Second hand smoke exposure: No Alcohol intake: former Year of sobriety/quit date alcohol: 2015 Former alcohol use details: Only holidays - last use 05.19.2015 Substance/Drug Use: former Date of last use: Young adult Former substance use details: Remote history of weed and cocaine brief Additional social history: Patient wants full CODE STATUS as discussed today with Jose Hightower MD on 02/25/2025 with his next of kin Chantale present at bedside Adopted: No Caregiver/support person: No Lives independently: Yes Household members: spouse Housing: Apartment Marital status: Number of children: 2 Number of grandchildren: 0 Highest education level completed: High School Graduate service: No Current occupational status: disabled 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 Pets and animals: Yes Pets & animals: dog(s) Leisure activites: games and other Leisure activities details: watching TV Sexually active: Yes Do you think of yourself as: Straight/Heterosexual Current gender identity: Male Shannon/L[employer]: Lutheran Special shannon needs: No Agree to transfusion: Yes Physical Exam Const: COMMON NORMALS: no acute distress and patient oriented x3 GENERAL APPEARANCE: cooperative and well developed ORIENTATION/CONSCIOUSNESS: Yes awake, Yes oriented to person, Yes oriented to place and Yes oriented to time HENMT: COMMON NORMALS: normocephalic, atraumatic and hearing grossly normal bilaterally HEAD & SCALP: normocephalic and atraumatic; no Roldan's sign, no palpable skull fracture, no raccoon eyes and no scalp tenderness FACE & SINUS: normal facial exam Eye: COMMON NORMALS: Equal, round and reactive pupils present, EOMs intact bilaterally and conjunctivae normal CONJUNCTIVA: Yes conjunctivae normal PUPIL: Yes Equal, round and reactive pupils present Neck/C-Spine: OTHER: C-collar in place, endorsing C-spine tenderness to palpation Chest: COMMONS NORMALS: normal inspection of the chest and normal palpation of entire chest wall Resp: COMMON NORMALS: normal respiratory effort, No retractions, No use of accessory muscles and clear to auscultation bilaterally AUSCULTATION: clear to auscultation bilaterally Cardio: COMMON NORMALS: regular rate, regular rhythm, No clicks present (Cardio), No murmurs present (Cardio) and No rub (Cardio) RATE: regular rate RHYTHM: regular rhythm GI: COMMON NORMALS: Normal to inspection, nondistended, normoactive bowel sounds present, Soft to palpation and non-tender AUSCULTATION: Yes normoactive bowel sounds PALPATION: Yes Soft to palpation RECTAL EXAM: Yes deferred Back/Pelvis: OTHER: Endorsing pain with range of motion in the back, tender to palpation diffusely along the paraspinal muscles Extremity: NARRATIVE EXTREMITY EXAM: Chronic surgical changes to bilateral lower extremities Neuro: COMMON NORMALS: patient oriented x3, moves all extremities, no focal motor deficits and no sensory deficits noted SENSORIUM/ORIENTATION: Yes oriented to person, Yes oriented to place and Yes oriented to time MOTOR EXAM: 5/5 motor strength present throughout, Pronator motor function not present, no tremor noted, no asterixis and Motor fasciculations not present Skin: COMMON NORMALS: no rashes or lesions noted GENERAL SKIN EXAM: no rashes or lesions noted Course Vital Signs: Vital signs: Vital Signs Temperature 98.6 F 03/01/25 20:40 Pulse Rate 68 03/01/25 20:40 Respiratory Rate 17 03/01/25 21:58 Blood Pressure 108/84 03/01/25 22:03 Pulse Oximetry 91 03/01/25 22:03 Oxygen Delivery Me thod Room Air 03/01/25 22:03 MDM - Fall Medical Decision Making Patient is a 54-year-old male with end-stage renal disease on hemodialysis evaluated here in the emergency department after a fall. Imaging/exam negative for acute injury. His current BUN and creatinine elevated but consistent with predialysis state. His potassium is within normal limits. There are no signs of volume overload or uremia. This patient is stable for discharge with plan to attend his scheduled dialysis in the morning as he has reliable ride. Return precautions were discussed, he has relief of symptoms here in the ED. Lab Data 03/01/25 21:28 03/01/25 21:28 Radiology Impressions Lumbar Spine CT 03/01/25 20:50 IMPRESSION: No acute lumbar spine fracture. Thoracic Spine CT 03/01/25 20:50 IMPRESSION: No acute fracture or subluxation. Cervical Spine CT 03/01/25 20:51 IMPRESSION: No acute fracture or subluxation. Head CT 03/01/25 20:51 IMPRESSION: No acute intracranial abnormality. Laboratory Results WBC 11.27 10^3/uL (3.29-11.43) 03/01/25: RBC 3.12 10^6/uL (3.85-5.65) L 03/01/25: Hgb 10.20 g/dL (11.27-16.99) L 03/01/25: Hct 29.8 % (37-53) L 03/01/25: MCV 95.5 fl (82-101) 03/01/25: MCH 32.7 pg (27-33) 03/01/25: MCHC 34.2 g/dL (30-55) 03/01/25: RDW 13.4 % (12.1-15.1) 03/01/25: Plt Count 296 10^3/cmm (157-399) 03/01/25: MPV 10.1 fL (7.4-10.4) 03/01/25: Neut % (Auto) 74.0 % 03/01/25: Lymph % (Auto) 13.1 % 03/01/25: [place] % (Auto) 7.4 % 03/01/25: Eos % (Auto) 1.8 % 03/01/25: Baso % (Auto) 0.2 % 03/01/25: Neut # (Auto) 8.34 10^3/uL (1.8-7.7) H 03/01/25: Lymph # (Auto) 1.5 10^3/uL (0.8-4.8) 03/01/25: [place] # (Auto) 0.8 10^3/uL (0.2-0.9) 03/01/25: Eos # (Auto) 0.2 10^3/uL (0.0-0.8) 03/01/25: Baso # (Auto) 0.0 10^3/uL (0.0-0.1) 03/01/25 21: Nucleated RBC % (auto) 0 % 03/01/25 21: Nucleated RBCs # 0.0 /100WBC 03/01/25 21: Sodium 130 mmol/L (136-145) L 03/01/25 21: Potassium 4.0 mmol/L (3.5-5.1) 03/01/25 21: Chloride 92 mmol/L (98-107) L 03/01/25 21: Carbon Dioxide 21 mmol/L (22-29) L 03/01/25: Anion Gap 21.0 (5-19) H 03/01/25: BUN 88 mg/dL (6-20) H* D 03/01/25 21: Creatinine 5.3 mg/dL (0.7-1.2) H 03/01/25 21: GFR Calculation 11.3 mL/min (90-130) L 03/01/25 21: Glucose 298 mg/dL (65-115) H 03/01/25 21: Calculated Osmolality 308 mOsm/kg (285-295) H 03/01/25: Calcium 7.4 mg/dL (8.5-10.5) L 03/01/25: Total Bilirubin 0.4 mg/dL (0.15-1.2) 03/01/25 21: AST 13 U/L (0-40) 03/01/25: ALT 15 U/L (0-41) 03/01/25: Alkaline Phosphatase 79 U/L (40-130) 03/01/25 21: Total Protein 5.6 g/dL (6.6-8.7) L 03/01/25: Albumin 3.3 g/dL (3.5-5.2) L 03/01/25: Globulin 2.3 g/dL (1.3-4.6) 03/01/25 21:28 All radiology interpretation(s) finalized by discharge Discharge Plan Discharge Patient Disposition: Home Clinical Impression: End stage renal disease on dialysis Fall Qualifiers: Encounter type: initial encounter Qualified Code(s): W19.XXXA - Unspecified fall, initial encounter CHI (closed head injury) Qualifiers: Encounter type: initial encounter Qualified Code(s): S09.90XA - Unspecified injury of head, initial encounter Contusion of lower back Qualifiers: Encounter type: initial encounter Qualified Code(s): S30.0XXA - Contusion of lower back and pelvis, initial encounter Condition: Stable Prescriptions: No Action Ozempic 2 mg/dose (8 mg/3 mL) pen injector 2 mg SUBCUT Q7D Qty: 9 0RF nitroglycerin [Nitrostat] 0.4 mg tablet, sublingual 0.4 mg SUBLINGUAL Q5M PRN (Reason: Chest Pain) Qty: 25 2RF Rx Instructions: do not exceed 3 doses per episode (DME) Dexcom G7 Sensor Device See Rx Instructions .ROUTE .COMPLEX Qty: 9 1RF Dose Instruction: CHANGE every 10 DAYS Rx Instructions: CHANGE every 10 DAYS tizanidine 2 mg tablet 2 mg PO BID PRN (Reason: Muscle Spasm) promethazine 25 mg tablet 25 mg PO Q6H PRN (Reason: Nausea) bumetanide 2 mg tablet 2 mg PO DAILY sacubitril-valsartan [Entresto] 24-26 mg tablet 2 tab PO DAILY trazodone 100 mg tablet 300 mg PO BEDTIME PRN (Reason: insomnia) clopidogrel 75 mg Tablet 75 mg PO DAILY Qty: 100 0RF atorvastatin [Lipitor] 80 mg tablet 80 mg PO BEDTIME Qty: 30 0RF diphenhydramine HCl [Benadryl Allergy] 25 mg Tablet 50 mg PO DAILY PRN (Reason: Allergy Symptoms) insulin lispro [Humalog KwikPen Insulin] 100 unit/mL insulin pen See Rx Instructions .ROUTE .COMPLEX Rx Instructions: Sliding scale subcutaneously twice a day as needed. RenaPlex-D 800 mcg-12.5 mg -2,000 unit tablet 1 tab PO BEDTIME acetaminophen [Tylenol Extra Strength] 500 mg Tablet 1,000 mg PO QID PRN (Reason: Pain) levothyroxine 88 mcg tablet 88 mcg PO QAM gabapentin 300 mg capsule 300 mg PO BID Eliquis 2.5 mg tablet 2.5 mg PO BID insulin degludec [Tresiba FlexTouch U-200] 200 unit/mL (3 mL) insulin pen 40 unit SUBCUT QAM ranolazine 1,000 mg tablet extended release 12 hr 1,000 mg PO BID hydrocodone-acetaminophen 7.5-325 mg Tablet 1 tab PO Q6H PRN (Reason: Pain) prednisone 20 mg tablet 40 mg PO DAILY 5 Days Qty: 10 0RF dorzolamide-timolol 22.3-6.8 mg/mL drops 1 drp ophthalmic (eye) BID testosterone cypionate 200 mg/mL oil 200 mg IM .Q30D amiodarone [Pacerone] 200 mg Tablet 200 mg PO BID Qty: 60 0RF levofloxacin 500 mg Tablet 500 mg PO Q48H Qty: 4 0RF Rx Instructions: On dialysis days take after dialysis metoprolol tartrate 25 mg Tablet 12.5 mg PO BID@0900,2100 Qty: 30 0RF Rx Instructions: Check your blood pressure twice a day before you take this medication and if heart rate less than 55 skip the dose Discharge Orders: Discharge ED (Routine); Ordered 03/01/25 Ordered By: Erasmo Ramos Referrals: Dez Evans MD [Primary Care Provider, [facility]] Patient Instructions: Patient Portal & Sunny Instructions Activity Restrictions/Additional Instructions: Discharge Instructions: ESRD Fall You were seen in the emergency department after a fall. Your head and spine scans showed no injury. You have a mild head injury (closed head injury) and a bruise on your lower back. You also have kidney disease and receive regular dialysis. What to expect: - Mild headache, dizziness, or soreness at the injury site are common and should improve over the next few days. - Your blood tests showed high levels of urea and creatinine, which is expected before dialysis. Your electrolytes are normal. What to do: - Attend your scheduled dialysis appointment in the morning. This is important for your health and recovery. - Rest and avoid strenuous activity for the next 24-48 hours. - Use ice packs on your lower back for 20 minutes at a time, several times a day, to help with pain and swelling. - Take acetaminophen (Tylenol) for pain if needed. Avoid NSAIDs (like ibuprofen) unless approved by your kidney doctor. Watch for warning signs: Call 911 or return to the emergency department if you experience: - Severe headache that does not go away - Vomiting that won?t stop - Trouble waking up or confusion - Weakness, numbness, or trouble speaking - Seizures - Loss of consciousness - Clear fluid or blood from your nose or ears These symptoms could be signs of a rare, delayed brain bleed after a head injury. Fall prevention: - Move slowly when getting up. - Use handrails and keep your home well-lit. - Remove loose rugs and clutter from walkways. Follow-up: - If you have any new symptoms or concerns, contact your dialysis center or primary care provider. - Consider asking about a fall risk assessment at your next medical visit. Special instructions for dialysis patients: - Let your dialysis team know about your recent fall and head injury. - If you feel unwell during dialysis (headache, confusion, weakness), tell your nurse right away. You may resume normal activities as you feel able, but avoid activities that could lead to another fall until you are fully recovered. Print Language: Persian Coding Level of Care Code ED Recruiting And Selection Consultant for Aaron Irene
[2025-03-01 21:43] LABS: Hematocrit 29.8 % (37-53); Hemoglobin 10.20 g/dL (11.27-16.99); Mean Corpuscular HGB Conc 34.2 g/dL (30-55); Mean Corpuscular Hemoglobin 32.7 pg (27-33); Mean Corpuscular Volume 95.5 fl (82-101); Nucleated Red Blood Cells % 0 %; Platelet Count 296 10^3/cmm (157-399); Red Blood Count 3.12 10^6/uL (3.85-5.65); White Blood Count 11.27 10^3/uL (3.29-11.43)
[2025-03-01 21:55] LABS: Alanine Aminotransferase 15 U/L (0-41); Albumin Level 3.3 g/dL (3.5-5.2); Alkaline Phosphatase 79 U/L (40-130); Anion Gap 21.0 (5-19); Aspartate Amino Transferase 13 U/L (0-40); Calcium 7.4 mg/dL (8.5-10.5); Carbon Dioxide 21 mmol/L (22-29); Chloride 92 mmol/L (98-107); Creatinine Clr Calc Pharmacy 16.9092; Globulin 2.3 g/dL (1.3-4.6); Glucose 298 mg/dL (65-115); Osmolality Calculated 308 mOsm/kg (285-295); Potassium 4.0 mmol/L (3.5-5.1); Sodium 130 mmol/L (136-145); Total Protein 5.6 g/dL (6.6-8.7)
[2025-03-01 21:58] VITALS: RESP 17
[2025-03-01] MEDS: fentaNYL 50 mcg/mL INJ 2mL 25 MCG IVP (21:58)
[2025-03-01 22:01] LABS: Blood Urea Nitrogen 88 mg/dL (6-20)
[2025-03-01 22:03] VITALS: BP 108/84; O2SAT 91
[2025-03-01 22:43] VITALS: BP 122/43; PULSE 68; O2SAT 91
== END 2025-03-01 22:49 | disposition home or self-care (01) ==
PROVIDERS: Emergency Provider Physician Assistant; PCP Family Medicine
DX: S09.90XA Unspecified injury of head, initial encounter (principal); S30.0XXA Contusion of lower back and pelvis, initial encounter; W19.XXXA Unspecified fall, initial encounter; N18.6 End stage renal disease; Z99.2 Dependence on renal dialysis
CPT/HCPCS: 70450; 72125; 72128; 72131; 80053; 85025; 93005; 96374; 96375; 99285; J1642; J3010

== ENCOUNTER → 2025-03-03 11:50 | Outpatient (BNVA) | payer MEDICARE, SELFPAY ==
[2024-03-20 13:31] VITALS: BP 125/53; BMI 35.0
== END ==
PROVIDERS: PCP Family Medicine; Visit Provider Internal Medicine Cardiovascular Disease
DX: Z45.02 Encounter for adjustment and management of automatic implantable cardiac defibrillator (principal)
CPT/HCPCS: 93296

== ENCOUNTER 2025-03-04 15:18 | Observation (INO) | payer MEDICARE, SELFPAY ==
[2024-03-20 13:31] VITALS: BP 125/53; BMI 35.0
[2025-03-04] VITALS (11 sets, daily range): BP systolic 128–167; BP diastolic 62–95; PULSE 60–82; RESP 17–25; TEMP 36.3; O2SAT 91–96
--- NOTE | 2025-03-04 15:30 | ECG_ITS ---
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 Measurements Intervals [place] Rate: 77 P: 27 ND: 203 QRS: -6 QRSD: 125 T: 79 QT: 411 QTc: 466 Interpretive Statements SINUS RHYTHM POSSIBLE ANTERIOR MYOCARDIAL INFARCTION , OF INDETERMINATE AGE [30 ms Q WAVE IN V3/V4, OR R < 0.2 mV IN V4] Compared to ECG 03/01/2025 22:08:41 Intraventricular conduction delay no longer present Myocardial infarct finding still present Electronically Signed On 03-06-2025 12:10:10 CDT by Garrison Mckinney M.D. [email or web address]
--- OUTSIDE RECORDS SUMMARY | 2025-03-04 16:25 | XMS_ITS | Clinical Summary ---
Author Organization [facility] Address [address] [place] [address] Care Team Providers Care Aircraft Motor Mechanic Name Role Phone Dez Evans MD Primary [...] tablet Take 88 mcg by mouth daily drum sander offbearer. 9 Active atorvastatin (LIPITOR) 40 mg tablet [...] sugar). 4 Active naloxone (NARCAN) 4 mg/spray [place], Non-Aerosol EMERGENCY USE ONLY: Administer 1 spray (4 mg) in one nostril one time. May repeat in alternating nostrils every 2-3 min until responsive or EMS arrives. 2 Each 3 5 Active sacubitriL-vals tommy (ENTRESTO) 24-26 mg Tablet Take 1 Tablet by mouth daily. 200 Tablet 3 07/03/2024 4:14 PM ADVERTISING OPERATIONS COORDINATOR 5 Active carvediloL (COREG) 12.5 mg tablet Take 1 Tablet (12.5 mg) by mouth 2 times daily. 30 Tablet 07/03/2024 4:14 PM ADVERTISING OPERATIONS COORDINATOR 5 Active isosorbide mononitrate (IMDUR) 60 mg Extended Release 24 hour tablet Take 1 Tablet (60 mg) by mouth daily in the morning. 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 08/18/2012 DM [...] Description 02/22/2025 8:00 AM CDT Procedure visit [facility] [address] [place] [address] [address] [place] [address] Ischemic dilated cardiomyopathy (CMS/HCC) (Primary Dx); VT (ventricular tachycardia); Automatic implantable cardioverter-defibril lator in situ 02/22/2025 Telephone [facility] [address] [facility] [address] [place] [address] Stephani Keen MD Follow Up 02/22/2025 Telephone [facility] [address] [facility] [address] [place] [address] Stephani Keen MD Follow Up 01/13/2025 External Device Data STL ABSTRACTION Provider, Abstract 01/05/2025 External Device Data STL ABSTRACTION Provider, Abstract 01/05/2025 External Device Data STL ABSTRACTION Provider, Abstract 12/04/2024 Telephone [facility] [place] [address] [place] [address] Shannan Goodwin MD Question from Last 3 Months Immunizations Immunization Administration Dates Next Due (ADACEL/BOOSTRIX)(10 YR UP) TDAP VACCINE, 0.5ML, IM 05/30/2021 (HEPLISAV-B)(18 YR UP) HEPAT ITIS B VACCINE CPG-ADJUVANTED (HEPB-CPG) 2-4 DOSE, IM 10/30/2022,08/25/2022,07/21/2022,06/23 (PNEUMOVAX 23)(50 YRS UP) PN EUMOCOCCAL POLYSACCHARIDE (PPV23) 0.5 ML, IM 09/18/2022,05/25/2019 (PREVNAR 20)(6 WKS UP) PNEUM OCOCCAL CONJUGATE VACCINE 20-VALENT (PCV20), POLYSACCHARIDE [id number] CONJUGATE, ADJUVANT 0.5 ML (PF) IM 06/26/2022 [...] on file Legal Sex Male 2:43 AM ADVERTISING OPERATIONS COORDINATOR Gender Identity Not on file Sexual Orientation [...] 08/10/2020, 06/06/2020 Medical Devices Implanted Type Area Route Sales Manager Device Identifier Shelf Expiration Date Model / Serial / Lot Clip Ligating Horizon Red [id number] - Csc - [id number] Implanted:Qty : 1 on 09/28/2022 by Guero Felder MD at [facility] Clip Left: Arm TELE[employer]LEX INC [id number] 12/25/2026 [id number] / / [id number] Clip Ligating Horizon Med Ti [id number] - Csc - [id number] Implanted:Qty : 1 on 09/28/2022 by AlaGuero carranza MD at [facility] Clip Left: Arm TELEFLEX- WECK CLOSURE SYS [id number] 10/08/2026 [id number] / / [id number] Clip Ligating Horizon Red 399536 - [facility] [place] [id number] Implanted:Qty : 1 on 11/14/2022 by Jimmy Anaya MD at [facility] Clip Left: Arm TELEFLEX INC [id number] 12/25/2026 / / [id number] Clip Ligating Horizon Med Ti [id number] - [facility] [place] [id number] Implanted:Qty : 1 on 11/14/2022 by Jimmy Anaya MD at [facility] Clip Left: Arm TELEFLEX- WECK CLOSURE SYS [id number] 02/12/2027 / / [id number] Closure Perclose Prostyle Sut Mediate 35120-20 - [id number] Implanted:Qty : 1 on 05/03/2023 by Jay Bales MD at [facility] Closure Device Right: Groin SALAS- VASC DEVICE 01/17/2025 58453-2 3 / / [id number] Dev Closure Angioseal 6fr Vip [id number] - [id number] Implanted:Qty : 1 on 05/03/2023 by Jay Bales MD at [facility] Closure Device Right: Groin [facility]AS [facility] 10/11/2023 [id number] / / [id number] Dev Closure Angioseal 6fr Vip 913757 - [id number] Implanted:Qty : 1 on 06/19/2024 by Prince Barfield MD at [facility] Closure Device Right: Groin TERUMO- CARDIOVASC SYS 01/13/2025 [id number] / / [id number] Dev Icd Acticor 7 Vr-T Dx Df4 Hybrid 796734 - [id number] Implanted:Qty : 1 on 07/23/2024 by Stephani Keen MD at [facility] Defibrillator Right: Chest Wall BIOTRONIK INC [id number] 05/19/2026 [id number] / [id number] / Graft Vasc Propaten 4-1sjl45bb [id number] - [id number] Implanted:Qty : 1 on 09/28/2022 by Guero Felder MD at [facility] Graft Left: Arm W L [employer]ORE [employer]OC INC [id number] 04/02/2026 [id number] / [id number] 2026-03 Hemostatic Surgicel 1x2in 1960 - [id number] Implanted:Qty : 1 on 09/28/2022 by Guero Felder MD at [facility] Hemostatic Left: Arm J&J- ETHICON INC [id number] 02/16/20251960 / / [id number] Hemostatic Surgicel 1x2in 1960 - [id number] Implanted:Qty : 1 on 09/28/2022 by Guero Felder MD at [facility] Hemostatic Left: Arm J&J- ETHICON INC [id number] 12/17/20241960 / / [id number] Lead Endocardial Pamira S Dx 65/15 Rv W Atr Sensing 763885 - [id number] Implanted:Qty : 1 on 07/23/2024 by Stephani Keen MD at [facility] Lead Right: Chest Wall BIOTRONIK INC [id number] 05/19/2026 [id number] / [id number] / Power Port Implanted:(Qu antity not on file) Explanted:(Qu antity not on file) Port Port- 9 Implanted: (Quantity not on file) Port Suture Perchik 2 Button Pouch [id number] - [id number] Implanted:Qty : 1 on 08/23/2023 at [facility] Screw [employer]GIODYNAM[employer] INC [id number] / / Description:This is Not an I mplant Stent Implanted:(Qu antity not on file) Explanted:(Qu antity not on file) Stent Stent Synergy Xd 3.5x16mm Evrlms Elut [id number] - [id number] Implanted:Qty : 1 on 05/03/2023 by Jay Bales MD at [facility] Stent Left: Coronary [employer] PATRICK 01/01/2025 [id number] / / [id number] Stent Viabahn Hep 8mmx7.5xcm [id number] - [id number] Implanted:Qty : 1 on 10/23/2023 by Jimmy nAaya MD at [facility] Stent Left: Arm W Hailey GORE [id number] INC [id number] 12/23/2025 [id number] / [id number] / Procedures Procedure Name Priority Date/Time Associated Diagnosis Comments SC REM INTERROG PM/LDLS PM/IDS <90 D TECH REVIEW Routine 02/22/2025 7:21 AM CDT Ischemic dilated cardiomyopathy (CMS/HCC) VT (ventricular tachycardia) Automatic implantable cardioverter-defibril lator in situ SC INTERROGATION EVAL REMOTE </90 D 1/2/LASER ENGRAVER LD DFB Routine 02/22/2025 7:21 AM CDT Ischemic dilated cardiomyopathy (CMS/HCC) VT (ventricular tachycardia) Automatic implantable cardioverter-defibril lator in situ HEMOGLOBIN A1C Routine 06/27/2024 5:39 AM ADVERTISING OPERATIONS COORDINATOR LIPID PANEL Routine 05/02/2023 9:36 PM ADVERTISING OPERATIONS COORDINATOR from Last 3 Months or Most Recently Relevant to Health Maintenance Results * SC INTERROGATION EVAL REMOTE </90 D 1/2/LASER ENGRAVER LD DFB, SC REM INTERROG PM/LDLS PM/IDS <90 D TECHREVIEW [...] back. Per past notes patient follows in [place]. Comments: Biotronik remote transmission reveals normal single chamber ICD function with stable available threshold and impedance trends. Presenting EGM indicates No current EGM. See attached report for details. Stephani Keen MD CARDIAC SERVICES ORDERA BLES Edited Result - Final INTERFACE SYSTEM Refer to clinic/hospital department * (ABNORMAL) HEMOGLOBIN A1C (06/27/2024 5:39 AM ADVERTISING OPERATIONS COORDINATOR) HEMOGLOBIN A1C 6.6(H) <=5.6 % 06/29/2024 9:10 AM [facility] EST. AVG GLUCOSE, A1C 143 mg/dL 06/29/2024 9:10 AM [facility] Blood Collection / Unknown 06/27/2024 5:39 AM ADVERTISING OPERATIONS COORDINATOR 06/27/2024 6:05 AM ADVERTISING OPERATIONS COORDINATOR Narrative [facility] - 06/29/2024 9:10 AM ADVERTISING OPERATIONS COORDINATOR HGB A1C INTERPRETATION NORMAL: <5.7% PRE-DIABETES: 5.7 - 6.4% DIABETES: 6.5% OR GREATER Joey Vo DO CHEMISTRY ORDERABLES Final R esult Performing Organization Address [facility]/ZIP Co de Phone Number [facility] CLIA # [id number] [address] [place] [address] * (ABNORMAL) LIPID PANEL (05/02/2023 9:36 PM ADVERTISING OPERATIONS COORDINATOR) CHOLESTEROL 224(H) <200 mg/dL 05/03/2023 10:26 PM [facility] [facility] TRIGLYCERIDE 286(H) <150 mg/dL 05/03/2023 10:26 PM [facility] HDL 39(L) 40 - 59 mg/dL 05/03/2023 10:26 PM [facility] LDL CALCULATED 128(H) <100 mg/dL 05/03/2023 10:26 PM [facility] NON-HDL CHOLESTEROL 185(H) <130 mg/dL 05/03/2023 10:26 PM [facility] Blood Venipuncture / Unknown 05/02/2023 9:36 PM ADVERTISING OPERATIONS COORDINATOR 05/02/2023 9:51 PM ADVERTISING OPERATIONS COORDINATOR Narrative [facility] - 05/03/2023 10:26 PM ADVERTISING OPERATIONS COORDINATOR TOTAL CHOLESTEROL mg/dL Desirable <200 Borderline high [...] [facility] CLIA # [id number] [address] [place] [address] [phone] from Last 3 Months or Most Recently Relevant to Health Maintenance Insurance [place] [facility] [id number] * Guarantor: SMITHA QUEEN II Account Type Relation to Patient Date of Phone Billing Address Personal/Family [address] [place] [address] RX Clarisonic Shareable Social Commercial RX INFOCROSSING Medicaid RX [employer] RX Member Subscriber Plan / Payer (Ef fective for All Dates) Name:Smitha Queen II, Junior Relation to Subscriber:Self Name:Smitha Queen II, Junior Payer ID:Not on file Type:RX Medicare Part D Address: [place] Advance Directives For more information, please contact: [phone] Documents on File Type Date Recorded Patient Wireless Field Technician Expl anation Advance Directive POA 08/23/2014 4:06 [...] 2:16 AM 07/03/2024 6:07 PM Care Teams Aircraft Motor Mechanic Relationship Specialty Start Date End Date Dez Evans MD [address] [place] [phone] PCP - General Family Practice 06/18/24
--- OUTSIDE RECORDS SUMMARY | 2025-03-04 16:25 | XMS_ITS | Encounter Summary ---
Author Organization [facility], [facility] Address [address] [place] [address] Phone Care Team Providers Care House Furnishings Supervisor Name Role Phone MontanezKp kevin Primary Care Provider [phone] Encounter Details Date Type Department Care Team (Late st Contact Info) Description 07/14/2024 [facility] [place] [address] [place] [address] Ayad Monahan, CERTIFIED SURGICAL TECHNOLOGIST [address] [place] [address] Social History Tobacco Use Types [...] 07/14/2024 The patient was seen for a faob-dc-elmb visit as part of Transitional Care Management services. Attending Manager Play: RITA MENENDEZ Dialysis Location: [facility] Schedule: Shift: 1 HOSPITALIZATION SUMMARY [...] 97.8*F Current Dialysis Vitals BP Sit: 140/78 AP/LIBRARY MONITOR: -- Pulse: 79 CARE COORDINATION Post-discharge follow-up appointments reviewed with the patient. COMMENTS: following Cardiology EDUCATION Education relevant to the discharge diagnosis provided to the patient or caregiver VISIT DIAGNOSES CPT Code 31887 - High complexity, seen 8-14 days post discharge or moderate complexity, seen [id number] days of discharge. R07.9 Chest pain, unspecified N18.6, Z99.2 End stage renal disease;Dependence on renal dialysis Signed by: AYAD MONAHAN NP on 07/14/2024 at 01:27:20 PM Transcribed by: AYAD MONAHAN NP on 07/14/2024 at 01:27:20 PM documented in this encounter Plan of Treatment Not on file documented as of this encounter Visit Diagnoses Not on filedocumented in this encounter Care Teams House Furnishings Supervisor Relationship Specialty Start Date End Date Kp Montanez DO [address] [place] [address] PCP - General Internal Medicine 01/07/23 documented as of this encounter
--- OUTSIDE RECORDS SUMMARY | 2025-03-04 16:25 | XMS_ITS | Encounter Summary ---
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
--- OUTSIDE RECORDS SUMMARY | 2025-03-04 16:25 | XMS_ITS | Patient Health Record ---
Author Organization [facility] Address [address] [place] [address] Care Team Providers Care Mechanic'S Assistant Name Role Phone Cristina RITTER, Dez Primary Care Provider UnavailElizabeth Jon Unavailable [phone] Pee Castaneda MD Unavailable Unavailable Ray Sherman Unavailable [phone] Migration, Provider Unavailable Unavailable Ajit Silver Unavailable [phone] Allergies Allergen (clinical drug ingredient) Drug/Non Drug [...] Notes Urine Drug Screen (cup read) - 32189 Reviewed date:11/05/2024 02:20:09 PM Interpretation: Performing Lab: Notes/Report: BUP + OPI + OXY + Urine Confirmation Panel (in strument) - 91114 Reviewed date:11/10/2024 02:00:57 PM Interpretation: Performing Lab: [...] the U.S. Food and Drug Administration. Gabapentin >83899 <225 ng/mL > This test was developed [...] Administration. Urine Drug Screen (cup read) - 13021 Reviewed date:01/07/2025 03:06:32 PM Interpretation: Performing Lab: Notes/Report: OPI + Tox Results Reviewed date:07/21/2024 11:36:15 AM Interpretation: Performing Lab: Notes/Report: Tox Results Reviewed date:11/10/2024 02:08:00 PM Interpretation: Performing Lab: Notes/Report: Urine Confirmation Panel (in strument) - [id number] Reviewed date:09/01/2024 08:59:18 AM Interpretation: Performing Lab: [...] Family Med icine Referred Organization [facility] Referred Provider Ray Sherman Referred Address [address] [facility] [place],[address] Referred Provider Specialty Gastroentero logy General Notes Taisha Godoy 09/22 04:14:39 PM >energy control officer Referral Priority Routine Reason chronic back pain gr eater than three months duration Diagnosis 1 Other chronic pain ( G89.29) Referring Provider First Name Kp Referring Provider Last Name Lisseth Referring Provider Speciality Internal M edicine Referred Organization [facility] Referred Provider Eran Block Referred Address [address] [facility],[address],[place] Referred Provider Specialty Pain Medicin e General Notes Tania Freeman 1 06/28/2023 11:04:24 AM >LVM to schedule new appt. 04/27/24 Referral Priority Routine Reason low back and neck pa in Diagnosis 1 Lumbar radiculopathy (M54.16) Diagnosis 2 Cervical radiculopat hy (M54.12) Referral Organization [facility] Referring Provider First Name Elizabeth Referring Provider Last Name Canales Referring Provider Speciality Pain Medic ine Referred Provider [facility] Referred Provider Specialty Preventive M edicine Referral [...] W/U Status Risk Notes Problem Chronic pain (99952245) Other chronic pain (G89.29) Active confirmed Problem Chronic pain syndrome (196729381) Chronic pain syndrome (G89.4) Active confirmed Problem Cervical radiculopathy (32718582) Cervical radiculopathy (M54.12) Active confirmed Problem Lumbar radiculopathy (484809346) Lumbar radiculopathy (M54.16) Active confirmed Problem Long-term current use of drug therapy (343258117) Long-term use of high-risk medication (Z79.899) Active confirmed Problem Abnormal gait (46576742) Abnormality of gait and mobility (R26.9) Active confirmed Problem Atherosclerotic heart disease of [place] coronary artery without angina pectoris (872004977198803 ) Atherosclerotic heart disease of [place] coronary artery without angina pectoris (I25.10) Active confirmed [id number] m ed Description:Patricia nary arteriosclerosis Problem Presence of coronary angioplasty implant and graft (Z95.5) Active confirmed [id number] om ed Description:Hist ory of placement of stent for coronary artery disease Problem Essential hypertension (79751640) Essential primary hypertension (I10) Active confirmed [id number]-Byx m ed Description:Holger mendiola essential hypertension Vital Signs Height-cm 165.1 cm 11/05/2024 Weight-kg 90.72 kg 11/05/2024 Height 65 in 11/05/2024 Weight 200 lbs 11/05/2024 BMI 33.28 kg/m2 11/05/2024 Encounters Encounter Location Date Provider Diagnosis [facility] Interventional Pain [address] [address] 06/24/2024 Ajit Silver Chronic pain syndrom e G89.4 ; Lumbar radiculopathy M54.16 ; Atherosclerotic heart disease of [place] coronary artery without angina pectoris I25.10 ; Abnormality of gait and mobility R26.9 and Long-term use of high-risk medication Z79.899 [facility] [address] [address] 07/15/2024 Ajit Silver Chronic pain syndrom e G89.4 ; Lumbar radiculopathy M54.16 ; Atherosclerotic heart disease of [place] coronary artery without angina pectoris I25.10 and Long-term use of high-risk medication Z79.899 [facility] [address] [address] 09/02/2024 Ajit Silver Chronic pain syndrom e G89.4 ; Lumbar radiculopathy M54.16 ; Atherosclerotic heart disease of [place] coronary artery without angina pectoris I25.10 and Long-term use of high-risk medication Z79.899 [facility] [address] [place] [address] 11/05/2024 Elizabeth Canales Chronic pain syndrom e G89.4 ; Cervical radiculopathy M54.12 ; Lumbar radiculopathy M54.16 ; Atherosclerotic heart disease of [place] coronary artery without angina pectoris I25.10 and Long-term use of high-risk medication Z79.899 [facility] [address] [place] [address] 01/07/2025 Elizabeth Canales Chronic pain syndrom e G89.4 ; Cervical radiculopathy M54.12 ; Lumbar radiculopathy M54.16 ; Atherosclerotic heart disease of [place] coronary artery without angina pectoris I25.10 and Long-term use of high-risk medication Z79.899 [facility] 0 0 03/14/2024 Provider Migration [facility] 0 0 03/15/2024 Provider Migration [facility] [address] [place] [address] 03/09/2024 Ray Sherman [facility] [address] [place] [address] 11/05/2024 Ajit Silver Lumbar radiculopathy M54.16 [facility] [address] [place] [address] 01/07/2025 Ajit Silver Lumbar radiculopathy M54.16 [facility] [address] [place] [address] 01/11/2025 Elizabeth Canales Assessments Encounter Date Diagnosis (ICD Code) Assessment Notes Treatment Notes Treatment Clinical Notes Section Notes 01/07/2025 Chronic pain syndrome (ICD-10 - G89.4) [...] effects are noted. Last UDS and [place] GEOSPATIAL IMAGE ANALYST reviewed today. Patient is advised that best [...] effects are noted. Last UDS and [place] GEOSPATIAL IMAGE ANALYST reviewed today. Patient is advised that best [...] in about 2 months and proceed accordingly. 07/15/2024 Chronic pain syndrome (ICD-10 - G89.4) I had a nice visit with the patient today regarding his chronic pain issues. He's had a lot going on since his last appointment. He had a myocardial infarction and pneumonia and was in the [facility] for a bit of time. He [...] M54.16) 11/05/2024 Lumbar radiculopathy (ICD-10 - M54.16) 06/24/2024 Chronic pain syndrome (ICD-10 - G89.4) [...] effects are noted. Last UDS and [place] GEOSPATIAL IMAGE ANALYST reviewed today. Patient is advised that best [...] - M54.16) 06/24/2024 Atherosclerotic heart disease of [place] coronary artery without angina pectoris (ICD-10 - I25.10) [id number]-Jdamcq Description:Damon ry arteriosclerosis 07/15/2024 Atherosclerotic heart disease of [place] coronary artery without angina pectoris (ICD-10 - I25.10) [id number]-Ytipoq Description:Damon ry arteriosclerosis 09/02/2024 Lumbar radiculopathy (ICD-10 - M54.16) 11/05/2024 Lumbar radiculopathy (ICD-10 - M54.16) 01/07/2025 Cervical radiculopathy (ICD-10 - M54.12) 01/07/2025 Lumbar radiculopathy (ICD-10 - M54.16) 11/05/2024 Atherosclerotic heart disease of [place] coronary artery without angina pectoris (ICD-10 - I25.10) [id number]-Ypoztj Description:Damon ry arteriosclerosis 09/02/2024 Atherosclerotic heart disease of [place] coronary artery without angina pectoris (ICD-10 - I25.10) [id number]-Mgeyot Description:Damon ry arteriosclerosis 07/15/2024 Long-term use of [...] to abide by our urine testing policy. 06/24/2024 Abnormality of gait and mobility (ICD-10 - R26.9) 06/24/2024 Long-term use of high-risk medication (ICD-10 - Z79.899) 09/02/2024 Long-term use of high-risk medication (ICD-10 - Z79.899) 11/05/2024 Long-term use of high-risk medication (ICD-10 - Z79.899) 01/07/2025 Atherosclerotic heart disease of [place] coronary artery without angina pectoris (ICD-10 - I25.10) [id number]-Qgxizt Description:Damon ry arteriosclerosis 01/07/2025 Long-term use of [...] Pending Test Test Name Order Date Diagnostic Colonoscopy-[id number] 02/19/2024 Next Appt Details Provider Name:Omar Moore, To 09:00:00 AM, [address] [place], [address], Insurance Providers Payer Name Payer Address Payer Phone Subscriber Number Group Number Insured Name Patient Relationship to Insured Coverage Start Date Coverage End Date [facility] Medicare Advantage PPO [address] [address] [place] [address] [id number] SMITHA Downey Self - patient is the insured [facility] Medicare Dual Complete PPO [address] [address] [place] [phone] [id number] SMITHA Downey Self - patient is the insured [place] Medicaid [address] [place] [address] [id number] SMITHA Downey Self - patient is the [...]
--- OUTSIDE RECORDS SUMMARY | 2025-03-04 16:25 | XMS_ITS | Encounter Summary ---
Author Organization [facility], [facility] Address [address] [place] [address] Phone Care Team Providers Care Director Fraud Name Role Phone MontanezKp kevin Primary Care Provider [phone] Encounter Details Date Type Department Care Team (Late st Contact Info) Description 09/29/2024 [facility], [facility] [address] [place] [address] Ayad Monahan, POUNDMASTER [address] [place] [address] Social History Tobacco Use Types [...] 09/29/2024 The patient was seen for a wnqy-hx-[id number] visit as part of Transitional Care Management services. Attending Windows Systems Administrator: RITA MENENDEZ Dialysis Location: [facility] [...] 98.1*F Current Dialysis Vitals BP Sit: 159/81 AP/BLIND EYELETTER: 198/162 Pulse: 86 CARE COORDINATION No follow-up appointments noted. COMMENTS: no new referrals. EDUCATION Education relevant to the discharge diagnosis provided to the patient or caregiver IMPRESSION & PLAN COMMENTS: 1.hemodialysis access problem; fistulogram completed. Now working well. 2. ESRD on HD: Continue HD TTS. VISIT DIAGNOSES CPT Code 25634 - High complexity, seen within 7 days [...] filedocumented in this encounter Care Teams Director Fraud Relationship Specialty Start Date End Date Kp Montanez DO [address] [place] [address] PCP - General Internal Medicine 01/07/23 documented as of this encounter
--- OUTSIDE RECORDS SUMMARY | 2025-03-04 16:25 | XMS_ITS | Clinical Summary ---
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 jose combined systolic and diastolic heart failure [...] Seen on CT abd at [facility] 10/2018 Coronary arteriosclerosis 05/24/2019 Noncompliance with [...] Inc [address] [place] [address] Yesi Madison MD 02/18/2025 Treatment [facility] [address] [place] [address] Ghazal Schmitt NP End stage renal disease; Dependence on renal dialysis 02/18/2025 Orders Only [facility] [address] [place] [address] Yesi Madison MD 02/11/2025 Orders Only [facility] [address] [place] [address] Yesi Madison MD 02/09/2025 Treatment [facility] [address] [place] [address] Yesi Madison MD End stage renal disease; Dependence on renal dialysis 02/02/2025 Treatment [facility] [address] [place] [address] Ghazal Schmitt NP End stage renal disease; Dependence on renal dialysis 02/01/2025 Orders Only [facility] [address] [place] [address] Yesi Madison MD 01/20/2025 Orders Only [facility], [facility] [address] [place] [address] Yesi Madison MD 01/19/[address] [place] [address], [facility] [address] [place] [address] Zoey Johnson NP End stage renal disease; Dependence on renal dialysis 01/14/2025 [facility], [facility] [address] [place] [address] Yesi Madison MD 01/12/[address] [place] [address], [facility] [address] [place] [address] Zoey Johnson, ELTON End stage renal disease; Dependence on renal dialysis 01/07/2025 [facility], [facility] [address] [place] [address] Yesi Madison MD 01/05/[address] [place] [address], [facility] [address] [place] [address] Yesi Madison MD End stage renal disease; Dependence on renal dialysis 12/31/2024 [facility], [facility] [address] [place] [address] Yesi Madison MD 12/29/[address] [place], [place] [address] [facility], [facility] [address] [place] [address] Zoey Johnson NP End stage renal disease; Dependence on renal dialysis 12/25/[address] [place], [place] [address]rology [facility], [facility] [address] [place] [address] Ghazal Schmitt NP End stage renal disease; Dependence on renal dialysis 12/25/2024 Orders Only [facility], [facility] [address] [place] [address] Yesi Madison MD 12/22/2024 Orders Only [facility] [address] [place] [address] Yesi Madison MD 12/22/2024 Documentation Only [facility] [address] [place] [address] [address] [place] [address] Pamela Sevilla DO 12/22/2024 Documentation Only [facility] [address] [place] [address] Yoselyn Vila MA 12/17/2024 Orders Only [facility] [address] [place] [address] Yesi Madison MD 12/10/2024 Orders Only [facility] [address] [facility] [address] [place] [address] Yesi Madison MD 12/03/2024 Orders Only [facility], [facility] [address] [facility] [address] [place] [address] Yesi Madison MD from Last [...] included. Hemoglobin 11.2(L) 14.0 - 18.0 g/dL [facility] Hemoglobin x 3 33.6(L) 42.0 - 54.0 % [facility] 02/25/2025 02/26/2025 10: 59 AM CDT Narrative [facility] - 02/26/2025 Unless otherwise specified, test(s) performed at: [facility], [address] [place] [address] PURCHASING INTERNSHIP: Jose Martin Mariscal M.D. For any questions, please call customer service at FREQUENCY:OTHER Resulting Agency Comment Specimen source: Blood Yesi Madison MD LAB BLOOD ORDERABLES Final Re sult Performing Organization Address [facility] Co de Phone Number [facility] See order comments or contact performing lab Unknown, [place] * HD KINETICS (02/18/2025) Only the most recent of3 resultswithin the time period is included. % Urea Reduction 77 65 - 80 % [facility] 02/18/2025 02/19/2025 10: 57 AM CDT Narrative Resulting Agency Comment Specimen source: Plasma us Yesi Madison MD LAB BLOOD ORDERABLES Final Re sult Performing Organization Address [facility]/ZIP Co de Phone Number [facility] See order comments or contact performing lab Unknown, [place] * POST CHEMISTRY (02/18/2025) Only the most recent of3 resultswithin the time period is included. BUN Post Dialysis 15 6 - 19 mg/dL [facility] 02/18/2025 02/19/2025 10: 57 AM CDT Narrative [facility] - 02/19/2025 Unless otherwise specified, test(s) performed at: [facility], [address] [place] [address] PURCHASING INTERNSHIP: Jose Martin Mariscal M.D. For any questions, [...] 02/19/2025 Unless otherwise specified, test(s) performed at: [facility], [address] [place] [address] PURCHASING INTERNSHIP: Jose Martin Mariscal M.D. For any questions, please call customer service at FREQUENCY:MONTHLY Resulting Agency Comment Specimen source: Serum Yesi Madison MD LAB BLOOD ORDERABLES Final Re sult [facility] See order comments or contact performing lab Unknown, [place] * [facility] Lab Results (02/18/2025) Only the most recent of3 resultswithin the time period is included. Pathologist [facility] spKt/V Gotch 1.71 [facility] eKdrt/V 1.47 [facility] WSTDKT/V 2.5 [facility] nPCR_HD 1.17 [facility] eNPCR 1.09 [facility] spKt/V (Daugirdas II) 1.68 [facility] eKt/V Gotch 1.47 [facility] eKt/V ([place]all) 1.45 [facility] PCR 81.14 [facility] 02/18/2025 02/18/2025 us Valdo Ordering Provider LAB BLOOD ORDERABLES Final Result Performing Organization Address City/[facility]/ZIP Co de Phone Number [facility] Contact Performing lab Unknown, [place] * (ABNORMAL) THYROIDS (01/20/2025) Pathologist [facility] TSH 3.923(H) 0.300 - 3.000 mIU/L [facility] Comment: The reference range of 0.300-3.000 mIU/L is recommended by the [place] Association [employer] Clinical Endocrinologists (AACE). An ESRD [...] ORDERABLES Final Re sult Performing Organization Address City/[facility] Co de Phone Number [facility] See order comments or contact performing lab Unknown, [place] * SPECIAL CHEMISTRY (01/20/2025) Only the most recent of2 resultswithin the time period is included. [facility] Creatine Kinase (CK/CPK) 34 30 - 223 U/L [facility] 01/20/2025 01/21/2025 4:1 0 PM CDT Narrative [facility] - 01/21/2025 Unless otherwise specified, test(s) performed at: [facility], [address] [place] [address] PURCHASING INTERNSHIP: Jose Martin Mariscal M.D. For any questions, please call customer service at FREQUENCY:MONTHLY Resulting Agency Comment Specimen source: Serum us Yesi Madison MD LAB BLOOD BANK TEST ORDERABLE S Final Result Performing Organization Address [facility] de Phone Number [facility] See order comments or contact performing lab Unknown, [place] * IMMUNO CHEMISTRY (01/20/2025) Only the most recent of2 resultswithin the time period is included. [facility] Hepatitis C Antibody Nonreactive Nonreactive [facility] Comment: No HCV antibody detected. The above test result was obtained using Siemens Centaur XP chemiluminescent method. Results obtained with different assay methods or kits cannot be used interchangeably. S/CO Ratio <0.02 0.00 - 0.79 [facility] Comment: s/co ratio Interpretation Supplemental testing <0.80 Nonreactive No further testing required. 0.80-0.99 Equivocal HCV RNA Quantitative Real-Time PCR is recommended. 1.00->11.00 Reactive HCV RNA Quantitative Real-Time PCR is recommended to distinguish active from resolved cases. 01/20/2025 01/21/2025 4:1 0 PM CDT Narrative Resulting Agency Comment Specimen source: Serum us Yesi Madison MD LAB BLOOD ORDERABLES Final Re sult Performing Organization Address City/[facility]/ZIP Co de Phone Number [facility] See order comments or contact performing lab Unknown, [place] * TRACE ELEMENTS (01/20/2025) Aluminum <5 0 - 10 mcg/L [facility] Comment: This test was developed and its performance characteristics determined by [facility]. It has not been cleared or approved by the FDA. The laboratory is regulated under CLIA as qualified to perform high complexity testing. This test is used for clinical purposes. It should not be regarded as investigational or for research. 01/20/2025 01/21/2025 10: 21 AM CDT Narrative [facility] - 01/21/2025 Unless otherwise specified, test(s) performed at: [facility], [address] [place] [address] PURCHASING INTERNSHIP: Jose Martin Mariscal M.D. For any questions, please call customer service at FREQUENCY:MONTHLY Resulting Agency Comment Specimen source: Serum Yesi Madison MD LAB BLOOD ORDERABLES Final Re sult Performing Organization Address [facility] Co de Phone Number [facility] See order comments or contact performing lab Unknown, [place] from Last 3 Months Insurance U[employer] Medicare Care Teams Instrumentation Instructor Relationship Specialty Start Date End Date Kp Montanez DO [address] [place] [address] PCP - General Internal Medicine 01/07/23
--- OUTSIDE RECORDS SUMMARY | 2025-03-04 16:25 | XMS_ITS | Encounter Summary ---
Author Organization [facility], [facility] Address [address] [address] Phone Care Team Providers Care Manager Outreach Name Role Phone Kp Montanez Primary Care Provider [phone] Encounter Details Date Type Department Care Team (Late st Contact Info) Description 12/24/2018 Orders Only [facility] [address] [place] [address] Antolin Weiss MD [address] [address] Chronic kidney disease stage 3; Type [...] Mckeon MA - 12/17/2018 2:15 PM CDT [facility] [address] [place] [address] us Antolin Weiss MD LAB BLOOD ORDERABLES Fi nal Result * PTH, intact (CKD3a) (12/17/2018 1:55 PM CDT) Parathyroid Hormone, Intact 119.3 pg/mL Blood specimen (specimen) 12/17/2018 1:55 PM CDT Leslie Mckeon MA - 12/17/2018 2:15 PM CDT [facility] [address] [place] [address] us Antolin Weiss MD LAB BLOOD ORDERABLES Fi nal Result * (ABNORMAL) Urine albumin / creatinine ratio (12/17/2018 1:55 PM CDT) Pathologist [facility] Urine Microalbumin 28 mg/dL Creatinine, Urine Random 76.2 mg/dL Microalb/Creat Ratio 367(A) 30 - 300 mg/g Creat Urine specimen (specimen) 12/17/2018 1:55 PM CDT Antolin Weiss MD LAB URINE ORDERABLES Fi nal Result * CBC (CKD3a) (12/17/2018 1:55 PM CDT) Pathologist [facility] WBC 8.8 K/uL Red Blood Cell Count [...] Benson MA - 12/17/2018 2:15 PM CDT [facility] [address] [place] [address] Antolin Weiss MD LAB BLOOD ORDERABLES Fi nal Result * (ABNORMAL) RFP (CKD3a) (12/17/2018 1:55 PM CDT) Pathologist [facility] Albumin 4.2 3.5 - 5.0 g/dL BUN [...] Mckeon MA - 12/17/2018 2:15 PM CDT [facility] [address] [place] [address] us Antolin Weiss MD LAB BLOOD ORDERABLES Fi nal Result documented in this encounter Visit Diagnoses Diagnosis Chronic kidney disease stage 3 (HCC) Type 2 diabetes mellitus with diabetic chronic kidney disease (HCC) documented in this encounter Care Teams Manager Outreach Relationship Specialty Start Date End Date Kp Montanez DO [address] [place] [address] PCP - General Internal Medicine 01/07/23 documented as of this encounter
--- OUTSIDE RECORDS SUMMARY | 2025-03-04 16:25 | XMS_ITS | Encounter Summary ---
Author Organization [facility], [facility] Address [address] [facility] [address] [place] [address] Phone Care Team Providers Care Drop Tester Name Role Phone Kp Montanez DO Primary Care Provider [phone] Reason for Visit * Reason Comments Med Refill Encounter Details Date Type Department Care Team (Late st Contact Info) Description 05/08/2021 Refill [facility] [address] [facility] [address] [place] [address] Ghazal Schmitt NP [address] [facility] [address] [place] [address] Social History Tobacco Use Types [...] on filedocumented in this encounter Care Teams Drop Tester Relationship Specialty Start Date End Date Kp Montanez DO [address] [place] [address] PCP - General Internal Medicine 01/07/23 documented as of this encounter
--- OUTSIDE RECORDS SUMMARY | 2025-03-04 16:25 | XMS_ITS | Clinical Summary ---
Author Organization [facility] Address [address] [place] [address] Care Team Providers Care Orthodontic Technician Assistant Name Role Phone Kp Montanez Primary Care [...] for Pain. 15 Tablet 04/10/2018 11:19 AM CLINICAL INVESTIGATOR 8 Active nitroglycerin (NITROSTAT) 0.4 mg Tablet, [...] tablet Take 88 mcg by mouth daily physician assistant surgery. Active metFORMIN (GLUCOPHAGE) 500 mg tablet Take 500 mg by mouth 2 times daily with meals. Active isosorbide mononitrate (IMDUR) 30 mg Extended Release 24 hour tablet Take 1 Tablet (30 mg) by mouth daily physician assistant surgery. 30 Tablet 9 Active metoprolol tartrate (LOPRESSOR) [...] Overview (08/18/2012): secondary to fasciotomy Atherosclerosis of [place] co ronary artery of [place] heart with stable angina pectoris 08/18/2012 DM (diabetes mellitus), type 2, uncontrolled 05/2012 Hypothyroidism 08/18/2012 Benign hypertension CKD (chronic kidney disease) stage 2, GFR 60-89 ml/min Resolved Problems Problem Noted Date Diagnosed Date Resolved Date Acute chest pain 09/06/2018 10/27/2018 Elevated troponin 09/06/2018 10/27/2018 Grade I diastolic dysfunction 07/06/2018 10/27/2018 Chest pain 04/04/2018 07/06/2018 CAD in [place] artery 07/02/2013 019 CHF (congestive heart failure) [...] declined 09/05/2018 How often do you attend mormon or temple serv ices? Patient declined 09/05/2018 Do you belong to any clubs o r organizations such as mormon groups, unions, fraWeilos or athletic groups, or school groups? Patient [...] history exists Medical Devices Implanted Type Area Boat Canvas Maker And Installer Device Identifier Shelf Expiration Date Model / Serial / Lot Port-06/04/2018 Implanted:2018 (Quantity not on file) Port Procedures Procedure Name Priority Date/Time Associated Diagnosis Comments LIPID PANEL Routine 01/25/2019 2:00 AM CDT HEMOGLOBIN A1C Routine 05/03/2014 9:04 AM CLINICAL INVESTIGATOR DM (diabetes mellitus), type 2, uncontrolled HTN (hypertension), benign from Last 3 Months or Most Recently Relevant to Health Maintenance Results * (ABNORMAL) LIPID PANEL (01/25/2019 2:00 AM CDT) CHOLESTEROL 133 <200 mg/dL 01/25/2019 2:42 AM CDT [facility] TRIGLYCERIDE 177(H) <150 mg/dL 01/25/2019 2:42 AM CDT [facility] HDL 33(L) 40 - 59 mg/dL 01/25/2019 2:[address] [facility] LDL CALCULATED 65 <100 mg/dL 01/25/2019 2:[address] [facility] NON-HDL CHOLESTEROL 100 <130 mg/dL 01/25/2019 2:[address] [facility] Blood Venipuncture / Unknown 01/25/2019 2:00 AM CDT 01/25/2019 2:15 AM CDT Narrative [facility] - 01/25/2019 2:42 AM CDT TOTAL CHOLESTEROL [...] CHEMISTRY ORDERABLES Final Result Performing Organization Address [facility] de Phone Number [facility] CLIA# [id number] [address] [place] [id number] * (ABNORMAL) HEMOGLOBIN A1C (05/03/2014 9:04 AM CLINICAL INVESTIGATOR) HEMOGLOBIN A1C 9.0(H) 4.0 - 6.0 % [facility] Comment: This test was performed on a Scimetrika VARIANT II instrument using HPLC methodology. Blood specimen (specimen) 05/03/2014 9:04 AM CLINICAL INVESTIGATOR 05/03/2014 9:05 AM CLINICAL INVESTIGATOR Nicolasa TORRES CHEMISTRY ORDERABLES Final R esult Performing Organization Address City/[facility]/ZIP Co de Phone Number INTERFACE SYSTEM Refer to clinic/hospital department [facility] CLIA# [id number] [address] [place] [address] from Last 3 Months or Most Recently Relevant to Health Maintenance Insurance [place] [address] [place] [place] [address] DUAL COMPLETE MCR PPO D-SNP RX [employer] RX Member Subscriber Plan / Payer (Ef fective for All Dates) Name:Rei Queen II Relation to Subscriber:Self Name:Rei Queen II Payer ID:Not on file Group ID:[id number] Type:RX Medicare Part D Address: [address] Advance Directives For more information, please contact: [phone] * Full Code (Latest Code Status on [...] 9:34 PM 04/10/2018 3:22 PM Care Teams Orthodontic Technician Assistant Relationship Specialty Start Date End Date Kp Montanez DO [address] [address] PCP - General Internal Medicine 04/04/18
--- OUTSIDE RECORDS SUMMARY | 2025-03-04 16:25 | XMS_ITS | Encounter Summary ---
Author Organization [facility], [facility] Address [address] [place] [address] Phone Care Team Providers Care Iron Erector Name Role Phone Kp Montanez DO Primary Care Provider [phone] Encounter Details Date Type Department Care Team (Late st Contact Info) Description 02/25/2025 Orders Only [facility] [address] [place] [address] Yesi Madison MD [address] [place] [address] Social History Tobacco Use Types [...] 02/26/2025 Unless otherwise specified, test(s) performed at: [facility], [address] [place] [id number] WELFARE VISITOR: Jose Martin Mariscal M.D. For any questions, please call customer service at FREQUENCY:OTHER Resulting Agency Comment Specimen source: Blood us Yesi Madison MD LAB BLOOD ORDERABLES Final Re sult [facility] See order comments or contact performing lab Unknown, [place] documented in this encounter Visit Diagnoses Not on filedocumented in this encounter Care Teams Iron Erector Relationship Specialty Start Date End Date Kp Montanez DO [address] [place] [address] PCP - General Internal Medicine 01/07/23 documented as of this encounter
--- OUTSIDE RECORDS SUMMARY | 2025-03-04 16:25 | XMS_ITS | Encounter Summary ---
Author Organization [facility], [facility] Address [address] [facility] [address] [place] [address] Phone Care Team Providers Care Food Mixer Name Role Phone Kp Montanez DO Primary Care Provider [phone] Reason for Visit * Reason Comments Med Refill Encounter Details Date Type Department Care Team (Late st Contact Info) Description 11/17/2021 Refill [facility] [address] [facility] [address] [place] [address] Antolin Weiss MD [address] [place] [address] Social History Tobacco Use Types [...] filedocumented in this encounter Care Teams Food Mixer Relationship Specialty Start Date End Date Kp Montanez DO [address] [place] [address] PCP - General Internal Medicine 01/07/23 documented as of this encounter
--- NOTE | 2025-03-04 17:23 | XRR_ITS ---
PROCEDURE INFORMATION: Exam: XR Chest Exam date and time: 03/04/2025 6:38 PM Age: 54 years old Clinical indication: Chest wall pain; Additional info: Chest pain TECHNIQUE: Imaging protocol: Radiologic exam of the chest. Views: 1 view. COMPARISON: CR (CHEST, ) 02/27/2025 3:41 PM FINDINGS: Tubes, catheters and devices: Right-sided pacemaker. Left-sided Port-A-Cath. Lungs: Bibasilar left greater than right atelectasis versus infiltrate. Pleural spaces: Unremarkable. No pleural effusion. No pneumothorax. Heart/Mediastinum: Cardiomegaly and mild pulmonary vascular congestion. Bones/joints: Sternotomy wires. XR/XR chest 1V portable [id number] IMPRESSION: 1. Cardiomegaly and mild pulmonary vascular congestion. 2. Bibasilar left greater than right atelectasis versus infiltrate. 3. Right-sided pacemaker. 4. Sternotomy wires. 5. Left-sided Port-A-Cath.
--- NOTE | 2025-03-04 17:27 | PC.NURSE ---
Nystatin cream delayed d/t not being verified at this time
--- NOTE | 2025-03-04 17:35 | ECG_ITS ---
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 Measurements Intervals [place] Rate: 80 P: 36 CO: 202 QRS: 49 QRSD: 122 T: -34 QT: 381 QTc: 440 Interpretive Statements SINUS RHYTHM POSSIBLE ANTERIOR MYOCARDIAL INFARCTION , OF INDETERMINATE AGE [30 ms Q WAVE IN V3/V4, OR R < 0.2 mV IN V4] POSSIBLE INFERIOR MYOCARDIAL INFARCTION , OF INDETERMINATE AGE [30 ms Q WAVE IN II/aVF] Compared to ECG 03/01/2025 22:08:41 Intraventricular conduction delay no longer present Myocardial infarct finding still present Electronically Signed On 03-06-2025 12:02:27 CDT by Garrison Mckinney M.D. [id number]
--- NOTE | 2025-03-04 17:39 | W.ED.CHESTPA ---
HPI - Chest Pain General: Chief Complaint: Chest Pain Stated Complaint: chest pain Time Seen by Provider: 03/04/25 17:11 History of Present Illness: 54 yo M with Hx of ESRD on dialysis (~3 years), CAD s/p prior IN with multiple stents including a recent stent ~10 days ago, recent pneumonia on treatment, and [Unclear] arrhythmia on amiodarone/apixaban presents with acute chest pressure and dyspnea. Chest pain was sub-sternal, 10/10, radiating to left arm/shoulder and neck; improved to 5/10 after nitro and 324 mg aspirin. Dyspnea is worse with deep inspiration and when lying flat; prefers upright position. Reports heavy breathing and that it ?hurts to breathe,? orthopnea, and pleuritic component. Dialysis was scheduled today but rescheduled for tomorrow due to transportation issues; patient feels possibly fluid overloaded. Denies home oxygen requirement routinely; uses oxygen PRN. Reports being ?jolted a couple times? previously, consistent with defibrillation shocks per his description. Also reports painful skin breakdown at superior julia cleft. Related Data Home Medications ?Medication ?Instructions ?Recorded ?Confirmed diphenhydramine HCl 25 mg tablet 50 mg PO DAILY PRN Allergy Symptoms 05/02/23 02/25/25 (Benadryl Allergy) insulin lispro 100 unit/mL See Rx Instructions .Route .COMPLEX 05/02/23 02/25/25 subcutaneous pen (Humalog KwikPen (U-100) Insulin) vit B,C-folic ac 800 mcg-zinc 12.5 1 tab PO BEDTIME 10/29/23 02/25/25 mg-selen-D3 2,000 unit-vit E tablet (RenaPlex-D) tizanidine 2 mg tablet 2 mg PO BID PRN Muscle Spasm 03/24/24 02/25/25 promethazine 25 mg tablet 25 mg PO Q6H PRN Nausea 04/21/24 02/25/25 acetaminophen 500 mg tablet 1,000 mg PO QID PRN Pain 06/04/24 02/25/25 (Tylenol Extra Strength) apixaban 2.5 mg tablet (Eliquis) 2.5 mg PO BID 12/08/24 02/25/25 gabapentin 300 mg capsule 300 mg PO BID 12/08/24 02/25/25 insulin degludec 200 unit/mL (3 40 unit SUBCUT QAM 12/08/24 02/25/25 mL) subcutaneous pen (Tresiba FlexTouch U-200 insulin) levothyroxine 88 mcg tablet 88 mcg PO QAM 12/08/24 02/25/25 ranolazine 1,000 mg 1,000 mg PO BID 12/08/24 02/25/25 tablet,extended release,12 hr hydrocodone 7.5 mg-acetaminophen 1 tab PO Q6H PRN Pain 01/07/25 02/25/25 325 mg tablet bumetanide 2 mg tablet 2 mg PO DAILY 02/22/25 02/25/25 sacubitril 24 mg-valsartan 26 mg 2 tab PO DAILY 02/22/25 02/25/25 tablet (Entresto) trazodone 100 mg tablet 300 mg PO BEDTIME PRN insomnia 02/22/25 02/25/25 dorzolamide 22.3 mg-timolol 6.8 1 drp ophthalmic (eye) BID 02/25/25 02/25/25 mg/mL eye drops testosterone cypionate 200 mg/mL 200 mg IM .Q30D 02/25/25 02/25/25 intramuscular oil Previous Rx's ?Medication ?Instructions ?Recorded nitroglycerin 0.4 mg sublingual 0.4 mg sublingual Q5M PRN Chest 08/27/23 tablet (Nitrostat) Pain #25 tabs blood-glucose sensor (Dexcom G7 #9 ea 12/14/24 Sensor device) semaglutide 2 mg/dose (8 mg/3 mL) 2 mg (0.75 mL) SUBCUT Q7D #9 mL 01/01/25 subcutaneous pen injector (Ozempic) atorvastatin 80 mg tablet (Lipitor) 80 mg PO BEDTIME #30 tabs 02/24/25 clopidogrel 75 mg tablet 75 mg PO DAILY #100 tabs 02/24/25 amiodarone 200 mg tablet (Pacerone) 200 mg PO BID #60 tabs 02/28/25 levofloxacin 500 mg tablet 500 mg PO Q48H #4 tabs 02/28/25 metoprolol tartrate 25 mg tablet 12.5 mg (1/2 x 25 mg) PO 02/28/25 BID@0900,2100 #30 tabs Allergies Allergy/AdvReac Type Severity Reaction Status Date / Time Iodinated Contrast Media Allergy Severe ALGY-Difficulty Verified 03/01/25 20:49 Breathing iodine Allergy Severe ALGY-Difficulty Verified 03/01/25 20:49 Breathing metoclopramide (From Reglan) Allergy Severe ALGY-Difficulty Verified 03/01/25 20:49 Breathing nalbuphine (From Nubain) Allergy Severe ADR-Diarrhe Verified 03/01/25 20:49 a naproxen (From Naprosyn) Allergy Severe ADR-Vomitin Verified 03/01/25 20:49 g Sulfa (Sulfonamide Allergy Severe ALGY-Difficulty Verified 03/01/25 20:49 Antibiotics) Breathing ketorolac Allergy Intermediate ADR-Nausea Verified 03/01/25 20:49 ondansetron (From Zofran) Allergy Intermediate ADR-Abdominal Verified 03/01/25 20:49 Pain prochlorperazine (From Allergy Intermediate ADR-Irritab Verified 03/01/25 20:49 Compazine) le codeine AdvReac Severe ALGY-Anaphy Verified 03/01/25 20:49 laxis haloperidol (From Haldol) AdvReac Intermediate ADR-Irritab Verified 03/01/25 20:49 le PFSH ED PFSH: Medical History (Updated 03/04/25 @ 20:52 by John Madison DO) History of pulmonary embolism DVT (deep venous thrombosis) (~03/2020) Proximal left subclavian, basilic and brachial veins, started eliquis this stay, felt present prior to admission Chronic pain Paroxysmal atrial fibrillation Ischemic cardiomyopathy Contrast media allergy Thoracic disc disease Non-pressure chronic ulcer of other part of left foot limited to breakdown of skin Bilateral pes planus Hammertoe of left foot Rupture of extensor tendon of foot Kidney failure Type 2 diabetes mellitus with other circulatory complication, 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 Atherosclerotic heart disease of [place] coronary artery with other forms of angina pectoris hx of CAD with prior stenting of proximal LAD, LCx, RCA End stage renal disease on dialysis Hypothyroidism Generalized anxiety disorder Major depressive disorder, recurrent severe without psychotic features Pericarditis Essential hypertension Psychiatric care 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 mellitus CRF (chronic renal failure) Chronic right SI joint pain Chronic systolic heart failure UTI (urinary tract infection) Peripheral arterial disease PVD (peripheral vascular disease) Worsening angina Angina at rest Uremic encephalopathy D-dimer, elevated Acute on chronic congestive heart failure Acute kidney injury superimposed on CKD GERD (gastroesophageal reflux disease) Alcohol use disorder, moderate, in sustained remission Chronic kidney disease -baseline Cr appears to be around 1.5 Onychodystrophy Chronic anticoagulation Eliquis Osteoarthritis of spine Hyperlipidemia Depression Anemia Foot drop, left H/O acute myocardial infarction Surgical History Peritoneal dialysis catheter in situ (06/15/21) History of appendectomy 1995 History of excision of mass 06/08/2019: Subcutaneous mass on back History of removal of Port-a-Cath Port-A-Cath in place H/O vasectomy Hx of cholecystectomy History of coronary artery stent placement 5x H/O skin graft History of inguinal hernia repair, bilateral 2000 H/O removal of testicle left H/O colonoscopy (11/14/20) 08/2015 H/O esophagogastroduodenoscopy (11/14/20) 08/2015 Family History Grandfather Cancer skin cancer Parkinson disease Brother Hypertension Father Heart disease Mother Hypertension Stroke Aneurysm Grandmother Aneurysm Other Crohn's disease Denies family history of Anesthesia complication Bleeding disorder Social History Smoking and tobacco/nicotine status: never used tobacco/nicotine Second hand smoke exposure: No Alcohol intake: former Year of sobriety/quit date alcohol: 2015 Former alcohol use details: Only holidays - last use 05.19.2015 Substance/Drug Use: former Date of last use: Young adult Former substance use details: Remote history of weed and cocaine brief Additional social history: Patient wants full CODE STATUS as discussed today with Jose Hightower MD on 02/25/2025 with his next of kin Chantale present at bedside Adopted: No Caregiver/support person: No Lives independently: Yes Household members: spouse Housing: Apartment Marital status: Number of children: 2 Number of grandchildren: 0 Highest education level completed: High School Graduate service: No Current occupational status: disabled 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 Pets and animals: Yes Pets & animals: dog(s) Leisure activites: games and other Leisure activities details: watching TV Sexually active: Yes Do you think of yourself as: Straight/Heterosexual Current gender identity: Male Shannon/Yazidi: Hindu Special shannon needs: No Agree to transfusion: Yes Physical Exam Const: COMMON NORMALS: no acute distress, patient oriented x3 and alert HENMT: COMMON NORMALS: normocephalic and atraumatic HEAD & SCALP: normocephalic and atraumatic Eye: COMMON NORMALS: Equal, round and reactive pupils present, EOMs intact bilaterally and no scleral icterus PUPIL: Yes Equal, round and reactive pupils present Resp: OTHER: Mild tachypnea, crackles at both lung bases Cardio: OTHER: Chest pain is reproducible with deep inspiration GI: COMMON NORMALS: Normal to inspection, nondistended, normoactive bowel sounds present, Soft to palpation and non-tender PALPATION: Yes Soft to palpation Extremity: NARRATIVE EXTREMITY EXAM: 1+ pitting edma Neuro: COMMON NORMALS: patient oriented x3 SENSORIUM/ORIENTATION: Yes alert Skin: COMMON NORMALS: no rashes or lesions noted GENERAL SKIN EXAM: no rashes or lesions noted Course Vital Signs: Vital signs: Vital Signs Temperature 97.4 F L 03/04/25 15:21 Pulse Rate 78 03/04/25 20:30 Respiratory Rate 18 03/04/25 20:30 Blood Pressure 139/62 03/04/25 20:30 Pulse Oximetry 95 03/04/25 20:30 Oxygen Delivery Me thod Room Air 03/04/25 20:30 MDM - Chest Pain Medical Decision Making 54 yo M with ESRD on dialysis, recent stent (~10 days), and recent pneumonia presents with acute substernal chest pressure radiating to arm/neck, pleuritic component, improved with nitro/aspirin, plus dyspnea and orthopnea. PE: orthopneic, mild tachypnea, bibasilar crackles, chest pain reproducible with deep inspiration, regular heart rhythm, cleft skin breakdown consistent with fungal infection. EKG: Time?1735?sinus rhythm, rate of 56, no ST segment elevation or depression, no T wave versions, QTc = 417 DDx includes ACS given recent stent and chest pain with radiation; fluid overload from missed dialysis suggested by orthopnea and bibasilar crackles; pleuritic pain raises consideration of PE or pericarditis but not confirmed; ongoing pneumonia could contribute to SOB. In summary, patient is a 54-year-old male who missed dialysis today and appears to be fluid overloaded, sitting bolt upright, with crackles at both lung bases and x-ray showing vascular engorgement of the lungs. He has pitting edema of the legs. Troponin is elevated above 400 but he just had a stent placed 10 days ago. If repeat troponin is stable and he remains vitally stable on room air. I do not suspect a new infarct at this time and suspect that his elevated troponin is due to his catheterization and transient ischemic processes occurring at that time. Chest pain is reproducible with deep inspiration thus I think there is a pleuritic component to it and not necessarily cardiac in nature. Patient remains mildly tachypneic with increased work of breathing likely mostly due to fluid overload. As such, he will be admitted to the hospital service until he can have dialysis tomorrow. Lab Data 03/04/25 17:40 03/04/25 17:40 Radiology Impressions Chest X-Ray 03/04/25 17:23 IMPRESSION: 1. Cardiomegaly and mild pulmonary vascular congestion. 2. Bibasilar left greater than right atelectasis versus infiltrate. 3. Right-sided pacemaker. 4. Sternotomy wires. 5. Left-sided Port-A-Cath. Laboratory Results WBC 13.05 10^3/uL (3.29-11.43) H 03/04/25 17:40 RBC 3.03 10^6/uL (3.85-5.65) L 03/04/25 17:40 Hgb 10.10 g/dL (11.27-16.99) L 03/04/25 17:40 Hct 29.5 % (37-53) L 03/04/25 17:40 MCV 97.4 fl (82-101) 03/04/25 17:40 MCH 33.3 pg (27-33) H 03/04/25 17:40 MCHC 34.2 g/dL (30-55) 03/04/25 17:40 RDW 13.4 % (12.1-15.1) 03/04/25 17:40 Plt Count 286 10^3/cmm (157-399) 03/04/25 17:40 MPV 10.2 fL (7.4-10.4) 03/04/25 17:40 Neut % (Auto) 77.2 % 03/04/25 17:40 Lymph % (Auto) 8.7 % 03/04/25 17:40 [place] % (Auto) 6.2 % 03/04/25 17:40 Eos % (Auto) 2.3 % 03/04/25 17:40 Baso % (Auto) 0.3 % 03/04/25 17:40 Neut # (Auto) 10.08 10^3/uL (1.8-7.7) H 03/04/25 17:40 Lymph # (Auto) 1.1 10^3/uL (0.8-4.8) 03/04/25 17:40 [place] # (Auto) 0.8 10^3/uL (0.2-0.9) 03/04/25 17:40 Eos # (Auto) 0.3 10^3/uL (0.0-0.8) 03/04/25 17:40 Baso # (Auto) 0.0 10^3/uL (0.0-0.1) 03/04/25 17:40 Nucleated RBC % (auto) 0 % 03/04/25 17:40 Nucleated RBCs # 0.0 /100WBC 03/04/25 17:40 Sodium 133 mmol/L (136-145) L 03/04/25 17:40 Potassium 4.3 mmol/L (3.5-5.1) 03/04/25 17:40 Chloride 95 mmol/L (98-107) L 03/04/25 17:40 Carbon Dioxide 19 mmol/L (22-29) L 03/04/25 17:40 Anion Gap 23.3 (5-19) H 03/04/25 17:40 BUN 74 mg/dL (6-20) H 03/04/25 17:40 Creatinine 4.8 mg/dL (0.7-1.2) H 03/04/25 17:40 GFR Calculation 12.6 mL/min (90-130) L 03/04/25 17:40 Glucose 326 mg/dL (65-115) H 03/04/25 17:40 Calculated Osmolality 311 mOsm/kg (285-295) H 03/04/25 17:40 Calcium 7.8 mg/dL (8.5-10.5) L 03/04/25 17:40 Total Bilirubin 0.4 mg/dL (0.15-1.2) 03/04/25 17:40 AST 11 U/L (0-40) 03/04/25 17:40 ALT 12 U/L (0-41) 03/04/25 17:40 Alkaline Phosphatase 82 U/L (40-130) 03/04/25 17:40 Troponin T Baseline 415 ng/L (0-15) H* 03/04/25 17:40 Troponin T 120 Minute 413.7 ng/L (0-15) H 03/04/25 19:30 Delta Troponin T -1.3 ABS# (0-10) L 03/04/25 19:30 NT-Pro-B Natriuret Pep 25830 pg/mL (0-125) H 03/04/25 17:40 Total Protein 5.8 g/dL (6.6-8.7) L 03/04/25 17:40 Albumin 3.6 g/dL (3.5-5.2) 03/04/25 17:40 Globulin 2.2 g/dL (1.3-4.6) 03/04/25 17:40 All radiology interpretation(s) finalized by discharge Discharge Plan Discharge Clinical Impression: Pulmonary edema, Missed dialysis, Chest pain, Elevated troponin Condition: Stable Prescriptions: No Action Ozempic 2 mg/dose (8 mg/3 mL) pen injector 2 mg SUBCUT Q7D Qty: 9 0RF nitroglycerin [Nitrostat] 0.4 mg tablet, sublingual 0.4 mg SUBLINGUAL Q5M PRN (Reason: Chest Pain) Qty: 25 2RF Rx Instructions: do not exceed 3 doses per episode (DME) Dexcom G7 Sensor Device See Rx Instructions .ROUTE .COMPLEX Qty: 9 1RF Dose Instruction: CHANGE every 10 DAYS Rx Instructions: CHANGE every 10 DAYS tizanidine 2 mg tablet 2 mg PO BID PRN (Reason: Muscle Spasm) promethazine 25 mg tablet 25 mg PO Q6H PRN (Reason: Nausea) bumetanide 2 mg tablet 2 mg PO DAILY sacubitril-valsartan [Entresto] 24-26 mg tablet 2 tab PO DAILY trazodone 100 mg tablet 300 mg PO BEDTIME PRN (Reason: insomnia) clopidogrel 75 mg Tablet 75 mg PO DAILY Qty: 100 0RF atorvastatin [Lipitor] 80 mg tablet 80 mg PO BEDTIME Qty: 30 0RF diphenhydramine HCl [Benadryl Allergy] 25 mg Tablet 50 mg PO DAILY PRN (Reason: Allergy Symptoms) insulin lispro [Humalog KwikPen Insulin] 100 unit/mL insulin pen See Rx Instructions .ROUTE .COMPLEX Rx Instructions: Sliding scale subcutaneously twice a day as needed. RenaPlex-D 800 mcg-12.5 mg -2,000 unit tablet 1 tab PO BEDTIME acetaminophen [Tylenol Extra Strength] 500 mg Tablet 1,000 mg PO QID PRN (Reason: Pain) levothyroxine 88 mcg tablet 88 mcg PO QAM gabapentin 300 mg capsule 300 mg PO BID Eliquis 2.5 mg tablet 2.5 mg PO BID insulin degludec [Tresiba FlexTouch U-200] 200 unit/mL (3 mL) insulin pen 40 unit SUBCUT QAM ranolazine 1,000 mg tablet extended release 12 hr 1,000 mg PO BID hydrocodone-acetaminophen 7.5-325 mg Tablet 1 tab PO Q6H PRN (Reason: Pain) dorzolamide-timolol 22.3-6.8 mg/mL drops 1 drp ophthalmic (eye) BID testosterone cypionate 200 mg/mL oil 200 mg IM .Q30D amiodarone [Pacerone] 200 mg Tablet 200 mg PO BID Qty: 60 0RF levofloxacin 500 mg Tablet 500 mg PO Q48H Qty: 4 0RF Rx Instructions: On dialysis days take after dialysis metoprolol tartrate 25 mg Tablet 12.5 mg PO BID@0900,2100 Qty: 30 0RF Rx Instructions: Check your blood pressure twice a day before you take this medication and if heart rate less than 55 skip the dose Referrals: Dez Evans MD [Primary Care Provider, Family Practice] Print Language: [place] Island[place] Coding Level of Care Code ED Securities Attorney for Chg Fwd Heart Score HEART Score Components History: Moderately Suspicious EKG: Normal Age: 45-64 yrs Risk Factors: >/=3 Risk Factors Troponin: Baseline Trop >45 ng/L HEART Score RESULT HEART Score: 6
[2025-03-04] MEDS: morphine 4 mg/mL SDV 1 mL IVP (17:44)
[2025-03-04] MEDS: nitroglycerin 1 gm/inch oint Pkt 1 INCH TOPICAL (17:45)
[2025-03-04 18:09] LABS: Hematocrit 29.5 % (37-53); Hemoglobin 10.10 g/dL (11.27-16.99); Mean Corpuscular HGB Conc 34.2 g/dL (30-55); Mean Corpuscular Hemoglobin 33.3 pg (27-33); Mean Corpuscular Volume 97.4 fl (82-101); Nucleated Red Blood Cells % 0 %; Platelet Count 286 10^3/cmm (157-399); Red Blood Count 3.03 10^6/uL (3.85-5.65); White Blood Count 13.05 10^3/uL (3.29-11.43)
[2025-03-04 18:32] LABS: Troponin(5th) Baseline 415 ng/L (0-15)
[2025-03-04 18:35] LABS: Slide Review Slide Review Perform
[2025-03-04 18:39] LABS: Alanine Aminotransferase 12 U/L (0-41); Albumin Level 3.6 g/dL (3.5-5.2); Alkaline Phosphatase 82 U/L (40-130); Anion Gap 23.3 (5-19); Aspartate Amino Transferase 11 U/L (0-40); Blood Urea Nitrogen 74 mg/dL (6-20); Calcium 7.8 mg/dL (8.5-10.5); Carbon Dioxide 19 mmol/L (22-29); Chloride 95 mmol/L (98-107); Creatinine Clr Calc Pharmacy 18.4942; Globulin 2.2 g/dL (1.3-4.6); Glucose 326 mg/dL (65-115); NT Pro B Type Natriuretic Pept 24022 pg/mL (0-125); Osmolality Calculated 311 mOsm/kg (285-295); Potassium 4.3 mmol/L (3.5-5.1); Sodium 133 mmol/L (136-145); Total Protein 5.8 g/dL (6.6-8.7)
--- NOTE | 2025-03-04 18:45 | PC.NURSE ---
received Nystatin cream from pharmacy @1080
[2025-03-04 20:08] LABS: Troponin 5 2HR 413.7 ng/L (0-15); Troponin 5 2HR Delta -1.3 ABS# (0-10)
[2025-03-04] MEDS: pantoprazole 40 mg SDV IVP (21:40)
[2025-03-04] MEDS: heparin 5,000 unit/mL INJ 1 mL 5000 UNIT SUBCUT (21:40)
--- NOTE | 2025-03-04 22:00 | PM.HP ---
Providers/Chief Complaint Admitting Physician: Yared Singh MD Primary Care Provider: Dez Evans MD Chief Complaint: chest pain History of Present Illness As per the previous notes and the patient: Rei Queen II is a 54 year old male with Hx of ESRD on dialysis (~3 years), CAD s/p prior OR with multiple stents including a recent stent ~10 days ago, recent pneumonia on treatment, and [Unclear] arrhythmia on amiodarone/apixaban presents with acute chest pressure and dyspnea. Chest pain was sub-sternal, 10/10, radiating to left arm/shoulder and neck. it was associated with sob, and mild senstation of nausea and vomiting. no diaphoresis or any presyncope or syncope like feelings. No orthopnea or PND. the patient was ongoing and nothing was relieving it. patient took aspirin 4 tab at home and did not relieve his symptoms. he couldnt find his nitro and therefore did not take it otherwise usually the patient settles down with nitro. he reported having mild degree of fevers but better since he is on treatment for pneumonia and been a week. no change in his bowel or urinary habits. patient is due to HD today through left AV fistula and missed it Review of Systems General: Reports: 10 or more systems reviewed and unremarkable except in HPI and below Medications/Allergies Home Medications ?Medication ?Instructions ?Recorded ?Confirmed ?Last Taken ?Type diphenhydramine HCl 25 mg tablet 50 mg PO DAILY PRN Allergy Symptoms 05/02/23 02/25/25 12/11/24 07:00 History (Benadryl Allergy) insulin lispro 100 unit/mL See Rx Instructions .Route .COMPLEX 05/02/23 02/25/25 02/25/25 History subcutaneous pen (Humalog KwikPen (U-100) Insulin) nitroglycerin 0.4 mg sublingual 0.4 mg sublingual Q5M PRN Chest 08/27/23 02/25/25 02/22/25 08:00 Rx tablet (Nitrostat) Pain #25 tabs vit B,C-folic ac 800 mcg-zinc 12.5 1 tab PO BEDTIME 10/29/23 02/25/25 02/24/25 History mg-selen-D3 2,000 unit-vit E tablet (RenaPlex-D) tizanidine 2 mg tablet 2 mg PO BID PRN Muscle Spasm 03/24/24 02/25/25 02/20/25 History promethazine 25 mg tablet 25 mg PO Q6H PRN Nausea 04/21/24 02/25/25 02/20/25 History acetaminophen 500 mg tablet 1,000 mg PO QID PRN Pain 06/04/24 02/25/25 12/05/24 History (Tylenol Extra Strength) apixaban 2.5 mg tablet (Eliquis) 2.5 mg PO BID 12/08/24 02/25/25 02/25/25 History gabapentin 300 mg capsule 300 mg PO BID 12/08/24 02/25/25 02/25/25 History insulin degludec 200 unit/mL (3 40 unit SUBCUT QAM 12/08/24 02/25/25 02/25/25 History mL) subcutaneous pen (Tresiba FlexTouch U-200 insulin) levothyroxine 88 mcg tablet 88 mcg PO QAM 12/08/24 02/25/25 02/25/25 History ranolazine 1,000 mg 1,000 mg PO BID 12/08/24 02/25/25 02/25/25 History tablet,extended release,12 hr blood-glucose sensor (Dexcom G7 #9 ea 12/14/24 02/25/25 Unknown Rx Sensor device) semaglutide 2 mg/dose (8 mg/3 mL) 2 mg (0.75 mL) SUBCUT Q7D #9 mL 01/01/25 02/25/25 02/19/25 Rx subcutaneous pen injector (Ozempic) hydrocodone 7.5 mg-acetaminophen 1 tab PO Q6H PRN Pain 01/07/25 02/25/25 02/20/25 History 325 mg tablet bumetanide 2 mg tablet 2 mg PO DAILY 02/22/25 02/25/25 02/25/25 History sacubitril 24 mg-valsartan 26 mg 2 tab PO DAILY 02/22/25 02/25/25 02/25/25 History tablet (Entresto) trazodone 100 mg tablet 300 mg PO BEDTIME PRN insomnia 02/22/25 02/25/25 02/20/25 21:00 History atorvastatin 80 mg tablet (Lipitor) 80 mg PO BEDTIME #30 tabs 02/24/25 02/25/25 02/24/25 Rx clopidogrel 75 mg tablet 75 mg PO DAILY #100 tabs 02/24/25 02/25/25 02/25/25 Rx dorzolamide 22.3 mg-timolol 6.8 1 drp ophthalmic (eye) BID 02/25/25 02/25/25 02/25/25 History mg/mL eye drops testosterone cypionate 200 mg/mL 200 mg IM .Q30D 02/25/25 02/25/25 02/05/25 History intramuscular oil amiodarone 200 mg tablet (Pacerone) 200 mg PO BID #60 tabs 02/28/25 Unknown Rx levofloxacin 500 mg tablet 500 mg PO Q48H #4 tabs 02/28/25 Unknown Rx metoprolol tartrate 25 mg tablet 12.5 mg (1/2 x 25 mg) PO 02/28/25 02/25/25 02/25/25 Rx BID@0900,2100 #30 tabs Allergies Allergy/AdvReac Type Severity Reaction Status Date / Time Iodinated Contrast Media Allergy Severe ALGY-Difficulty Verified 03/01/25 20:49 Breathing iodine Allergy Severe ALGY-Difficulty Verified 03/01/25 20:49 Breathing metoclopramide (From Reglan) Allergy Severe ALGY-Difficulty Verified 03/01/25 20:49 Breathing nalbuphine (From Nubain) Allergy Severe ADR-Diarrhe Verified 03/01/25 20:49 a naproxen (From Naprosyn) Allergy Severe ADR-Vomitin Verified 03/01/25 20:49 g Sulfa (Sulfonamide Allergy Severe ALGY-Difficulty Verified 03/01/25 20:49 Antibiotics) Breathing ketorolac Allergy Intermediate ADR-Nausea Verified 03/01/25 20:49 ondansetron (From Zofran) Allergy Intermediate ADR-Abdominal Verified 03/01/25 20:49 Pain prochlorperazine (From Allergy Intermediate ADR-Irritab Verified 03/01/25 20:49 Compazine) le codeine AdvReac Severe ALGY-Anaphy Verified 03/01/25 20:49 laxis haloperidol (From Haldol) AdvReac Intermediate ADR-Irritab Verified 03/01/25 20:49 le PFSH Acute PFSH: Medical History (Updated 03/04/25 @ 20:52 by John S Madison, DO) History of pulmonary embolism DVT (deep venous thrombosis) (~03/2020) Proximal left subclavian, basilic and brachial veins, started eliquis this stay, felt present prior to admission Chronic pain Paroxysmal atrial fibrillation Ischemic cardiomyopathy Contrast media allergy Thoracic disc disease Non-pressure chronic ulcer of other part of left foot limited to breakdown of skin Bilateral pes planus Hammertoe of left foot Rupture of extensor tendon of foot Kidney failure Type 2 diabetes mellitus with other circulatory complication, 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 Atherosclerotic heart disease of [place] coronary artery with other forms of angina pectoris hx of CAD with prior stenting of proximal LAD, LCx, RCA End stage renal disease on dialysis Hypothyroidism Generalized anxiety disorder Major depressive disorder, recurrent severe without psychotic features Pericarditis Essential hypertension Psychiatric care 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 mellitus CRF (chronic renal failure) Chronic right SI joint pain Chronic systolic heart failure UTI (urinary tract infection) Peripheral arterial disease PVD (peripheral vascular disease) Worsening angina Angina at rest Uremic encephalopathy D-dimer, elevated Acute on chronic congestive heart failure Acute kidney injury superimposed on CKD GERD (gastroesophageal reflux disease) Alcohol use disorder, moderate, in sustained remission Chronic kidney disease -baseline Cr appears to be around 1.5 Onychodystrophy Chronic anticoagulation Eliquis Osteoarthritis of spine Hyperlipidemia Depression Anemia Foot drop, left H/O acute myocardial infarction Surgical History Peritoneal dialysis catheter in situ (06/15/21) History of appendectomy 1995 History of excision of mass 06/08/2019: Subcutaneous mass on back History of removal of Port-a-Cath Port-A-Cath in place H/O vasectomy Hx of cholecystectomy History of coronary artery stent placement 5x H/O skin graft History of inguinal hernia repair, bilateral 1999 H/O removal of testicle left H/O colonoscopy (11/14/20) 08/2015 H/O esophagogastroduodenoscopy (11/14/20) 08/2015 Family History Grandfather Cancer skin cancer Parkinson disease Brother Hypertension Father Heart disease Mother Hypertension Stroke Aneurysm Grandmother Aneurysm Other Crohn's disease Denies family history of Anesthesia complication Bleeding disorder Social History (Reviewed 03/01/25 @ 21:03 by GABRIELLA Galaviz Smoking and tobacco/nicotine status: never used tobacco/nicotine Second hand smoke exposure: No Alcohol intake: former Year of sobriety/quit date alcohol: 2015 Former alcohol use details: Only holidays - last use 05.19.2015 Substance/Drug Use: former Date of last use: Young adult Former substance use details: Remote history of weed and cocaine brief Additional social history: Patient wants full CODE STATUS as discussed today with Jose Hightower MD on 02/25/2025 with his next of kin Chantale present at bedside Adopted: No Caregiver/support person: No Lives independently: Yes Household members: spouse Housing: Apartment Marital status: Number of children: 2 Number of grandchildren: 0 Highest education level completed: High School Graduate service: No Current occupational status: disabled 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 Pets and animals: Yes Pets & animals: dog(s) Leisure activites: games and other Leisure activities details: watching TV Sexually active: Yes Do you think of yourself as: Straight/Heterosexual Current gender identity: Male Shannon/Presybeterian: Shinto Special shannon needs: No Agree to transfusion: Yes Vitals/I&O/Wt Last Vital Signs Temp 97.4 F L 03/04/25 15:21 Pulse 78 03/04/25 21:00 Resp 18 03/04/25 21:00 BP 133/72 03/04/25 21:00 Pulse Ox 91 03/04/25 21:00 O2 Del Method Room Air 03/04/25 21:00 Weight last 48 hrs Weight 97.976 kg Physical Exam Narrative: General: Alert and oriented, lying comfortably without any distress at room air HEENT: Normocephalic, atraumatic, grossly unremarkable exam Cardio: normal rate rhythm, normal S1-S2 without any murmurs, rubs, or gallops and JVD normal, Respiratory: normal vascular breathing on auscultation without any wheezes, stridor, rhonchi GI: Abdomen soft, nontender, nondistended, normoactive bowel sounds present all 4 quadrants, Neuro: intact cranial nerves motor and sensory and cerebellar/coordination function without any focal neurological deficit Behavior: Appropriate and cooperative Extremities: Adequate palpable pulses, left arm AV fistula with palpable thrill and no tenderness, bilateral scar edgar of fasciotomies at both shins with mild trace pedal edema. Data 03/04/25 17:40 03/04/25 17:40 A&P Assessment and plan 1. Chest pain: Atypical chest pain, delta Trop insignificant Patient had recent stenting in 02/23/2025 to distal RCA with 1 stent. And patient is following with cardiology Troponin leak could be explained by the recent stenting and the delta Trope is insignificant therefore chest pain less likely to be of cardiac in origin and could be likely post PCI pericarditis versus pneumonia versus costochondritis versus missed session of hemodialysis leading to shortness of breath and chest pain. 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 Ischemic cardiomyopathy: Patient has history of recent stenting to RCA on 02/23/2025, to resume home medication aspirin clopidogrel and high-dose statins Entresto, ranolazine, nitroglycerin as needed, metoprolol 12.5 twice daily to resume after reconciliation and based on hemodynamics. Monitor for any symptoms and hemodynamics 3. End stage renal disease on dialysis: Patient on hemodialysis through left arm AV fistula 3 times per week due for dialysis today but missed a session Following with nephrology as an outpatient bumetanide 2 mg p.o. daily as the patient is still producing urine and to continue after constipation Dialysis session tomorrow 4. Uncontrolled hypertension: Patient on metoprolol however no other strong antihypertensives found in the home medication. Reconcile home medication and to resume antihypertensives based on the hemodynamics 5. Hypothyroidism: Levothyroxine 88 mcg every morning as per home medication to continue after reconciliation 6. Type 2 diabetes mellitus with other circulatory complication, with long-term current use of insulin: Patient on high dose of insulin and taking semaglutide as well HbA1c 6.4% in December 2024, Insulin sliding scale Endocrine to follow as outpatient since the patient is end-stage renal disease and having tight control of HbA1c with insulin could put him at potential risk of hypoglycemia. 7. Major depressive disorder, recurrent severe without psychotic features: Patient on trazodone 300 mg at bedtime for insomnia and to continue after reconciliation 8. Left lower lobe pneumonia: Patient has been taking levofloxacin 500 mg every 48 hours for pneumonia discharged recently on 03/01/2025. Currently afebrile however having leukocytosis To resume levofloxacin for further total 7 days (getting treatment for left lobe pneumonia) 9. Chronic pain: Tizanidine 2 mg twice daily as needed and gabapentin 300 mg twice daily with hydrocodone as needed every 6 as needed for pain is prescribing the home medication, and to resume after reconciliation 10. History of pulmonary embolism: Continue Eliquis 2.5 mg twice daily 11. DVT (deep venous thrombosis): Continue Eliquis 2.5 mg twice daily 12. Paroxysmal atrial fibrillation: Continue metoprolol 12.5 mg twice daily along with Eliquis 2.5 mg twice daily PDMP PDMP Reviewed: Not Reviewed Attestations Medical Necessity Statement*: Rei Queen 's hospital stay will be less than 2 midnights for Time Spent in Patient Care: 16 - 35 minutes (>than 50% of time spent in counselling and/or direct pt care on unit). Other Attestations: Patient condition has been discussed at length with the patient/family, I have independently reviewed the chart labs imaging/diagnostics/EKG. the goals of care and code status with the patient/family/NOK/legal brewery representative, and documented accordingly. The patient/family has been informed about the current condition and further plan of care. Agreed with the plan of care and understood without any language barrier. Every effort was made to ensure accuracy of machine operator hop worker. Any obvious errors or omissions should be clarified with the author of the document. Coding Level of Care Code Acute Code for Chg Fwd Diagnoses Chest pain R07.9 Ischemic cardiomyopathy I25.5 End stage renal disease on dialysis N18.6; Z99.2 Uncontrolled hypertension I10 Hypothyroidism E03.9 Type 2 diabetes mellitus with other circulatory complication, with long-term current use of insulin E11.59; Z79.4 Diabetes mellitus complication detail: with other circulatory complications Diabetes mellitus complication status: with circulatory complication Diabetes mellitus shelter insulin use: with tank terminal gauger use Major depressive disorder, recurrent severe without psychotic features F33.2 Left lower lobe pneumonia J18.9 Chronic pain G89.29 History of pulmonary embolism Z86.711 DVT (deep venous thrombosis) I82.409 Paroxysmal atrial fibrillation I48.0
[2025-03-05] VITALS (82 sets, daily range): BP systolic 92–173; BP diastolic 37–103; PULSE 0–140; RESP 0–30; TEMP 36.9–37.3; O2SAT 75–100
[2025-03-05 00:51] LABS: Troponin 5 6HR 462.9 ng/L (0-15); Troponin 5 6HR Delta 47.9 ng/L (0-12)
[2025-03-05] MEDS: FUROsemide 10 mg/mL SDV 10mL 60 MG IVP (03:45)
[2025-03-05 04:12] LABS: Hematocrit 25.8 % (37-53); Hemoglobin 8.70 g/dL (11.27-16.99); Mean Corpuscular HGB Conc 33.7 g/dL (30-55); Mean Corpuscular Hemoglobin 32.5 pg (27-33); Mean Corpuscular Volume 96.3 fl (82-101); Nucleated Red Blood Cells % 0 %; Platelet Count 235 10^3/cmm (157-399); Red Blood Count 2.68 10^6/uL (3.85-5.65); White Blood Count 11.66 10^3/uL (3.29-11.43)
[2025-03-05 04:41] LABS: Alanine Aminotransferase 10 U/L (0-41); Albumin Level 3.3 g/dL (3.5-5.2); Alkaline Phosphatase 74 U/L (40-130); Anion Gap 19.9 (5-19); Aspartate Amino Transferase 12 U/L (0-40); Blood Urea Nitrogen 74 mg/dL (6-20); Calcium 8.0 mg/dL (8.5-10.5); Carbon Dioxide 21 mmol/L (22-29); Chloride 98 mmol/L (98-107); Creatinine Clr Calc Pharmacy 18.8877; Globulin 2.3 g/dL (1.3-4.6); Glucose 119 mg/dL (65-115); Osmolality Calculated 303 mOsm/kg (285-295); Potassium 3.9 mmol/L (3.5-5.1); Sodium 135 mmol/L (136-145); Total Protein 5.6 g/dL (6.6-8.7)
[2025-03-05] MEDS: heparin 5,000 unit/mL INJ 1 mL IVP (11:38)
[2025-03-05] MEDS: heparin drip 25,000 UNIT/500 ML PREMIX 29 UNIT IV (11:41)
[2025-03-05] MEDS: nitroglycerin 1 gm/inch oint Pkt 0.5 INCH TOPICAL (12:05)
[2025-03-05] MEDS: nitroglycerin drip 50 MG/250 ML PREMIX IV (12:54)
[2025-03-05] MEDS: ranolazine (12HR) 500 mg Tablet 1000 MG PO ×2 (12:56→18:25)
--- NOTE | 2025-03-05 14:31 | PM.CONSULT ---
Providers/Reason For Consult Consulting Physician/Specialty*: [facility]/Nephrology Reason for Consult*: ESRD Attending Physician: Rafiq Mariee MD Primary Care Provider: Dez Evans MD History of Present Illness History of Present Illness Rei Queen II is a 54 year old male Patient is a 54-year-old male with past medical history of end-stage renal disease on dialysis, coronary artery disease with prior stents, recent admission for chest pain and had a stent placement, multiple recent admissions due to pneumonia and chest pains presented to the emergency department again with chest pressure. Lab data reviewed. Review of Systems Narrative: negative Medications/Allergies Home Medications ?Medication ?Instructions ?Recorded ?Confirmed ?Last Taken ?Type diphenhydramine HCl 25 mg tablet 50 mg PO DAILY PRN Allergy Symptoms 05/02/23 03/05/25 12/11/24 07:00 History (Benadryl Allergy) insulin lispro 100 unit/mL See Rx Instructions .Route .COMPLEX 05/02/23 03/05/25 02/25/25 History subcutaneous pen (Humalog KwikPen (U-100) Insulin) nitroglycerin 0.4 mg sublingual 0.4 mg sublingual Q5M PRN Chest 08/27/23 03/05/25 02/22/25 08:00 Rx tablet (Nitrostat) Pain #25 tabs vit B,C-folic ac 800 mcg-zinc 12.5 1 tab PO BEDTIME 10/29/23 03/05/25 02/24/25 History mg-selen-D3 2,000 unit-vit E tablet (RenaPlex-D) tizanidine 2 mg tablet 2 mg PO BID PRN Muscle Spasm 03/24/24 03/05/25 02/20/25 History promethazine 25 mg tablet 25 mg PO Q6H PRN Nausea 04/21/24 03/05/25 02/20/25 History acetaminophen 500 mg tablet 1,000 mg PO QID PRN Pain 06/04/24 03/05/25 12/05/24 History (Tylenol Extra Strength) apixaban 2.5 mg tablet (Eliquis) 2.5 mg PO BID 12/08/24 03/05/25 03/04/25 09:00 History gabapentin 300 mg capsule 300 mg PO BID 12/08/24 03/05/25 03/04/25 09:00 History insulin degludec 200 unit/mL (3 40 unit SUBCUT QAM 12/08/24 03/05/25 02/25/25 History mL) subcutaneous pen (Tresiba FlexTouch U-200 insulin) levothyroxine 88 mcg tablet 88 mcg PO QAM 12/08/24 03/05/25 03/04/25 07:00 History ranolazine 1,000 mg 1,000 mg PO BID 12/08/24 03/05/25 03/04/25 09:00 History tablet,extended release,12 hr blood-glucose sensor (Dexcom G7 #9 ea 12/14/24 03/05/25 Unknown Rx Sensor device) semaglutide 2 mg/dose (8 mg/3 mL) 2 mg (0.75 mL) SUBCUT Q7D #9 mL 01/01/25 03/05/25 02/28/25 Rx subcutaneous pen injector (Ozempic) hydrocodone 7.5 mg-acetaminophen 1 tab PO Q6H PRN Pain 01/07/25 03/05/25 02/20/25 History 325 mg tablet bumetanide 2 mg tablet 2 mg PO DAILY 02/22/25 03/05/25 03/04/25 08:00 History sacubitril 24 mg-valsartan 26 mg 2 tab PO DAILY 02/22/25 03/05/25 03/04/25 09:00 History tablet (Entresto) trazodone 100 mg tablet 300 mg PO BEDTIME PRN insomnia 02/22/25 03/05/25 03/03/25 20:00 History atorvastatin 80 mg tablet (Lipitor) 80 mg PO BEDTIME #30 tabs 02/24/25 03/05/25 03/03/25 19:00 Rx clopidogrel 75 mg tablet 75 mg PO DAILY #100 tabs 02/24/25 03/05/25 03/04/25 09:00 Rx dorzolamide 22.3 mg-timolol 6.8 1 drp ophthalmic (eye) BID 02/25/25 03/05/25 02/25/25 History mg/mL eye drops testosterone cypionate 200 mg/mL 200 mg IM .Q30D 02/25/25 03/05/25 02/05/25 History intramuscular oil amiodarone 200 mg tablet (Pacerone) 200 mg PO BID #60 tabs 02/28/25 03/05/25 03/04/25 08:00 Rx levofloxacin 500 mg tablet 500 mg PO Q48H #4 tabs 02/28/25 03/05/25 03/04/25 Rx metoprolol tartrate 25 mg tablet 12.5 mg (1/2 x 25 mg) PO 02/28/25 03/05/25 02/25/25 Rx BID@0900,2100 #30 tabs Allergies Allergy/AdvReac Type Severity Reaction Status Date / Time Iodinated Contrast Media Allergy Severe ALGY-Difficulty Verified 03/01/25 20:49 Breathing iodine Allergy Severe ALGY-Difficulty Verified 03/01/25 20:49 Breathing metoclopramide (From Reglan) Allergy Severe ALGY-Difficulty Verified 03/01/25 20:49 Breathing nalbuphine (From Nubain) Allergy Severe ADR-Diarrhe Verified 03/01/25 20:49 a naproxen (From Naprosyn) Allergy Severe ADR-Vomitin Verified 03/01/25 20:49 g Sulfa (Sulfonamide Allergy Severe ALGY-Difficulty Verified 03/01/25 20:49 Antibiotics) Breathing ketorolac Allergy Intermediate ADR-Nausea Verified 03/01/25 20:49 ondansetron (From Zofran) Allergy Intermediate ADR-Abdominal Verified 03/01/25 20:49 Pain prochlorperazine (From Allergy Intermediate ADR-Irritab Verified 03/01/25 20:49 Compazine) le codeine AdvReac Severe ALGY-Anaphy Verified 03/01/25 20:49 laxis haloperidol (From Haldol) AdvReac Intermediate ADR-Irritab Verified 03/01/25 20:49 le Current Medications Generic Name Dose Route Start Last Admin Trade Name Freq PRN Reason Stop Dose Admin Acetaminophen 650 mg 03/04/25 21:25 03/05/25 01:10 Acetaminophen 325 Mg Tablet PO 650 mg Q6H PRN Administration Mild/Mod Pain Or Temp >/= 101 Atorvastatin Calcium 80 mg 03/04/25 22:36 03/04/25 23:24 Atorvastatin 40 Mg Tablet PO 80 mg BEDTIME RANDY Administration Clopidogrel Bisulfate 75 mg 03/05/25 05:00 03/05/25 05:08 Clopidogrel 75 Mg Tablet PO 75 mg DAILY RANDY Administration Gabapentin 300 mg 03/05/25 05:00 03/05/25 05:08 Gabapentin 300 Mg Capsule PO 300 mg BID RANDY Administration Heparin Sodium (Porcine) 0 unit 03/05/25 10:56 03/05/25 11:38 Heparin 5,000 Unit/Ml Inj 1 Ml IVP 5,300 unit PRN PRN Administration Heparin Weight Based Protocol -Subsequent Bolus Protocol Heparin Sodium/Sodium Chloride 25,000 unit in 500 mls @ 0 mls/hr 03/05/25 11:00 03/05/25 11:41 Heparin Drip IV 13.68 unit/kg/hr CONT RANDY 29 mls/hr Protocol Administration Per Protocol Nitroglycerin/Dextrose 50 mg in 250 mls @ 0 mls/hr 03/05/25 12:15 03/05/25 13:15 Nitroglycerin Drip IV 15 mcg/min .Q0M RANDY 4.5 mls/hr Protocol Titration Per Protocol Insulin Human Lispro 0 unit 03/05/25 08:00 03/05/25 12:04 Insulin Lispro 100 Unit/1 Ml SUBCUT Not Given WM&BEDTIME RANDY Protocol Levofloxacin 500 mg 03/04/25 22:30 03/04/25 23:24 Levofloxacin 500 Mg Tablet PO 03/07/25 23:59 500 mg Q48H RANDY Administration Protocol Levothyroxine Sodium 88 mcg 03/05/25 05:00 03/05/25 07:15 Levothyroxine 88 Mcg Tablet PO 88 mcg QAM RANDY Administration Metoprolol Tartrate 12.5 mg 03/05/25 09:00 03/05/25 09:45 Metoprolol Tartrate 25 Mg Tablet PO 12.5 mg BID@0900,2100 RANDY Administration Pantoprazole Sodium 40 mg 03/04/25 21:30 03/04/25 21:40 Pantoprazole 40 Mg Sdv IVP 40 mg Q24H RANDY Administration Ranolazine 1,000 mg 03/05/25 12:20 03/05/25 12:56 Ranolazine (12hr) 500 Mg Tablet PO 1,000 mg BID RANDY Administration Sacubitril/Valsartan 1 each 03/05/25 12:20 03/05/25 12:56 Sacubitril/Valsartan 24-26 Mg Tablet PO 1 each BID RANDY Administration Tizanidine HCl 2 mg 03/04/25 22:35 03/05/25 03:45 Tizanidine 4 Mg Tablet PO 2 mg BID PRN Administration Muscle Spasm Trazodone HCl 300 mg 03/04/25 22:28 03/04/25 23:25 Trazodone 100 Mg Tablet PO 300 mg BEDTIME PRN Administration INSOMNIA PFSH Acute PFSH: Medical History (Updated 03/04/25 @ 20:52 by Jonh Madison DO) History of pulmonary embolism DVT (deep venous thrombosis) (~03/2020) Proximal left subclavian, basilic and brachial veins, started eliquis this stay, felt present prior to admission Chronic pain Paroxysmal atrial fibrillation Ischemic cardiomyopathy Contrast media allergy Thoracic disc disease Non-pressure chronic ulcer of other part of left foot limited to breakdown of skin Bilateral pes planus Hammertoe of left foot Rupture of extensor tendon of foot Kidney failure Type 2 diabetes mellitus with other circulatory complication, 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 Atherosclerotic heart disease of [place] coronary artery with other forms of angina pectoris hx of CAD with prior stenting of proximal LAD, LCx, RCA End stage renal disease on dialysis Hypothyroidism Generalized anxiety disorder Major depressive disorder, recurrent severe without psychotic features Pericarditis Essential hypertension Psychiatric care 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 mellitus CRF (chronic renal failure) Chronic right SI joint pain Chronic systolic heart failure UTI (urinary tract infection) Peripheral arterial disease PVD (peripheral vascular disease) Worsening angina Angina at rest Uremic encephalopathy D-dimer, elevated Acute on chronic congestive heart failure Acute kidney injury superimposed on CKD GERD (gastroesophageal reflux disease) Alcohol use disorder, moderate, in sustained remission Chronic kidney disease -baseline Cr appears to be around 1.5 Onychodystrophy Chronic anticoagulation Eliquis Osteoarthritis of spine Hyperlipidemia Depression Anemia Foot drop, left H/O acute myocardial infarction Surgical History Peritoneal dialysis catheter in situ (06/15/21) History of appendectomy 1995 History of excision of mass 06/08/2019: Subcutaneous mass on back History of removal of Port-a-Cath Port-A-Cath in place H/O vasectomy Hx of cholecystectomy History of coronary artery stent placement 5x H/O skin graft History of inguinal hernia repair, bilateral 1999 H/O removal of testicle left H/O colonoscopy (11/14/20) 08/2015 H/O esophagogastroduodenoscopy (11/14/20) 08/2015 Family History Grandfather Cancer skin cancer Parkinson disease Brother Hypertension Father Heart disease Mother Hypertension Stroke Aneurysm Grandmother Aneurysm Other Crohn's disease Denies family history of Anesthesia complication Bleeding disorder Social History Smoking and tobacco/nicotine status: never used tobacco/nicotine Second hand smoke exposure: No Alcohol intake: former Year of sobriety/quit date alcohol: 2015 Former alcohol use details: Only holidays - last use 05.19.2015 Substance/Drug Use: former Date of last use: Young adult Former substance use details: Remote history of weed and cocaine brief Additional social history: Patient wants full CODE STATUS as discussed today with Jose Hightower MD on 02/25/2025 with his next of kin Chantale present at bedside Adopted: No Caregiver/support person: No Lives independently: Yes Household members: spouse Housing: Apartment Marital status: Number of children: 2 Number of grandchildren: 0 Highest education level completed: High School Graduate service: No Current occupational status: disabled 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 Pets and animals: Yes Pets & animals: dog(s) Leisure activites: games and other Leisure activities details: watching TV Sexually active: Yes Do you think of yourself as: Straight/Heterosexual Current gender identity: Male Shannon/Confucianism: Sabianist Special shannon needs: No Agree to transfusion: Yes Vitals/I&O/Wt Last Vital Signs Temp 98.5 F 03/05/25 03:40 Pulse 84 03/05/25 13:00 Resp 24 H 03/05/25 13:00 BP 130/71 03/05/25 13:00 Pulse Ox 95 03/05/25 13:00 O2 Del Method Nasal Cannula 03/05/25 06:00 O2 Flow Rate 2 03/05/25 06:00 03/04/25 03/05/25 03/05/25 22:59 06:59 14:59 Intake Total 600.90 / 600.90 Output Total 275 / 275 1625 / 1625 Balance -275 / -275 -1024.10 / -1024.10 Weight last 48 hrs Weight 105.959 kg Weight 105.959 kg Weight 97.976 kg Physical Exam Narrative: awake , alert , no distress PEERLA No JVD s1s2 RRR per report Lungs clear , non laboured abd soft , non tender no edema skin no rash neuro - no deficits Data 03/05/25 03:58 03/05/25 03:58 A&P Assessment and plan 1. End stage renal disease on dialysis: Plan: 1. End-stage renal disease:HD today 2. Hypertension , Resume home meds 3. History of coronary artery disease, admitted with chest pain , on heparin drip 4. Anemia: Hemoglobin at goal per CKD 5. MBD: Will resume home binders Patient evaluated using audiovisual cart. Time spent 40 minutes PDMP PDMP Reviewed: Not Reviewed Consult Attestations Medical Necessity Statement: per [place] Coding Level of Care Code Acute Code for Chg Fwd Diagnoses End stage renal disease on dialysis N18.6; Z99.2
[2025-03-05] MEDS: morphine 4 mg/mL SDV 1 mL 1 MG IVP ×2 (14:59→22:07)
--- NOTE | 2025-03-05 15:21 | P.PN_ITS ---
Subjective 2 Subjective: Admitted overnight. Currently patient sitting in bed complaining of chest pain retrosternal associated with nausea. Denies any difficulty in breathing. Able to lie down flat. Blood pressure of 136 mmHg. Vitals/I&O/Wt Last Vital Signs Temp 98.5 F 03/05/25 03:40 Pulse 84 03/05/25 13:00 Resp 20 H 03/05/25 14:59 BP 130/71 03/05/25 13:00 Pulse Ox 98 03/05/25 14:59 O2 Del Method Nasal Cannula 03/05/25 06:00 O2 Flow Rate 2 03/05/25 06:00 03/05/25 03/05/25 03/05/25 06:59 14:59 22:59 Intake Total 600.90 / 600.90 Output Total 275 / 275 1625 / 1625 Balance -275 / -275 -1024.10 / -1024.10 Weight last 48 hrs Weight 105.959 kg Weight 105.959 kg Weight 97.976 kg Physical Exam 2 Narrative: General: Alert and oriented, lying comfortably without any distress at room air HEENT: Normocephalic, atraumatic, grossly unremarkable exam Cardio: normal rate rhythm, normal S1-S2 without any murmurs, rubs, or gallops and JVD normal, Respiratory: normal vascular breathing on auscultation without any wheezes, stridor, rhonchi GI: Abdomen soft, nontender, nondistended, normoactive bowel sounds present all 4 quadrants, Neuro: intact cranial nerves motor and sensory and cerebellar/coordination function without any focal neurological deficit Behavior: Appropriate and cooperative Extremities: Adequate palpable pulses, left arm AV fistula with palpable thrill and no tenderness, bilateral scar edgar of fasciotomies at both shins with mild trace pedal edema. Data 03/05/25 03:58 03/05/25 03:58 A&P Assessment and plan 1. Chest pain: Atypical chest pain, delta Trop insignificant Patient had recent stenting in 02/23/2025 to distal RCA with 1 stent. And patient is following with cardiology Troponin leak could be explained by the recent stenting and the delta Trope is insignificant therefore chest pain less likely to be of cardiac in origin and could be likely post PCI pericarditis versus pneumonia versus costochondritis versus missed session of hemodialysis leading to shortness of breath and chest pain. 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 Ischemic cardiomyopathy: Patient has history of recent stenting to RCA on 02/23/2025, to resume home medication aspirin clopidogrel and high-dose statins Entresto, ranolazine, nitroglycerin as needed, metoprolol 12.5 twice daily to resume after reconciliation and based on hemodynamics. Monitor for any symptoms and hemodynamics 3. End stage renal disease on dialysis: Patient on hemodialysis through left arm AV fistula 3 times per week due for dialysis today but missed a session Following with nephrology as an outpatient bumetanide 2 mg p.o. daily as the patient is still producing urine and to continue after constipation Dialysis session tomorrow 4. Uncontrolled hypertension: Patient on metoprolol however no other strong antihypertensives found in the home medication. Reconcile home medication and to resume antihypertensives based on the hemodynamics 5. Hypothyroidism: Levothyroxine 88 mcg every morning as per home medication to continue after reconciliation 6. Type 2 diabetes mellitus with other circulatory complication, with long-term current use of insulin: Patient on high dose of insulin and taking semaglutide as well HbA1c 6.4% in December 2024, Insulin sliding scale Endocrine to follow as outpatient since the patient is end-stage renal disease and having tight control of HbA1c with insulin could put him at potential risk of hypoglycemia. 7. Major depressive disorder, recurrent severe without psychotic features: Patient on trazodone 300 mg at bedtime for insomnia and to continue after reconciliation 8. Left lower lobe pneumonia: Patient has been taking levofloxacin 500 mg every 48 hours for pneumonia discharged recently on 03/01/2025. Currently afebrile however having leukocytosis To resume levofloxacin for further total 7 days (getting treatment for left lobe pneumonia) 9. Chronic pain: Tizanidine 2 mg twice daily as needed and gabapentin 300 mg twice daily with hydrocodone as needed every 6 as needed for pain is prescribing the home medication, and to resume after reconciliation 10. History of pulmonary embolism: Continue Eliquis 2.5 mg twice daily 11. Acute deep vein thrombosis (DVT) of other vein of left upper extremity: Continue Eliquis 2.5 mg twice daily 12. Paroxysmal atrial fibrillation: Continue metoprolol 12.5 mg twice daily along with Eliquis 2.5 mg twice daily Plan: Plan for today: Concern for non-ST elevation RI. Baseline troponin 400 with a delta of 90. Patient recently had PCI to RCA within last 1 week. 6-hour troponin at that time was 170. Patient continues to complain of chest pain not relieved by Nitropaste. Aspirin 325 mg one-time. Start on nitro drip. Start on heparin drip. Titrate nitro drip as for blood pressures. Will consult cardiology for further recommendations. Echocardiogram. Patient seems euvolemic for now. Nephrology consultation. Patient with dialysis. Currently blood pressure stable. Restart other chronic home medications including amiodarone, metoprolol, Entresto, Ranexa. starch dumper. PDMP PDMP Reviewed: Not Reviewed Attestations 2 Medical Necessity Statement*: Requires further hospitalization for management of chest pain with concerns for non-ST elevation RI in a patient with end-stage renal disease on hemodialysis with missed dialysis Diagnoses Chest pain R07.9 Ischemic cardiomyopathy I25.5 End stage renal disease on dialysis N18.6; Z99.2 Uncontrolled hypertension I10 Hypothyroidism E03.9 Type 2 diabetes mellitus with other circulatory complication, with long-term current use of insulin E11.59; Z79.4 Diabetes mellitus complication detail: with other circulatory complications Diabetes mellitus complication status: with circulatory complication Diabetes mellitus 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
--- NOTE | 2025-03-05 15:46 | PC.NURSE ---
Called patients viktoriya Kenyon and updated on patient status and plan of care as requested per patient.
--- NOTE | 2025-03-05 17:38 | ECG_ITS ---
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 Measurements Intervals [place] Rate: 119 P: 0 DC: 0 QRS: 7 QRSD: 122 T: 74 QT: 384 QTc: 540 Interpretive Statements ATRIAL FIBRILLATION WITH RAPID VENTRICULAR RESPONSE ANTEROLATERAL MYOCARDIAL INFARCTION , OF INDETERMINATE AGE [40+ ms Q WAVE IN I/aVL/V3-V6] Compared to ECG 03/04/2025 17:35:08 Sinus rhythm no longer present Myocardial infarct finding still present Electronically Signed On 03-06-2025 11:57:46 CDT by Garrison Mckinney M.D. [id number]
[2025-03-05 18:03] LABS: Partial Thromboplastin Time 157.2 SECONDS (23.9-36.7)
[2025-03-05] MEDS: amiodarone 150 MG/100 ML PREMIX 400 MG IV (18:43)
--- NOTE | 2025-03-05 18:48 | PM.CONSULT ---
Providers/Reason For Consult Consulting Physician/Specialty*: Paulo Momin MD Reason for Consult*: chest pain Requesting Physician: Rafiq Mariee MD Attending Physician: Rafiq Mariee MD Primary Care Provider: Dez Evans MD History of Present Illness History of Present Illness Rei Queen II is a 54 year old male with a history of hypertension, diabetes mellitus, end-stage renal disease on hemodialysis, paroxysmal atrial fibrillation, ventricular tachycardia, coronary artery disease status post multiple stents including to the left anterior descending artery, circumflex artery and RCA. Last heart catheterization was performed 02/23/2025 after the patient presented with chest pain and then ICD shock for wide-complex tachycardia. The patient had a non-ST elevation myocardial infarction. Left heart catheterization 02/23/2025: * Left Main has no significant disease. * Left Anterior Descending has mild in-stent restenosis. Apical LAD has severe stenosis. * Circumflex has prior stent. Mild ISR. OM has prior stents with mild to moderate ISR. * Distal Right Coronary Artery: severe 70-80% stenosis, MEGHANA: 3 flow. * Coronary angiography shows right dominance. 70-80% dRCA - stented with GLORY The patient states that his chest pain did improve after the stent placement on 02/23/2025. Yesterday the patient had recurrence of anterior chest discomfort which brought him back to the emergency room. His chest pain has been coming and going all day. Nitroglycerin drip was started to try to relieve the patient's chest pain. Troponins have been ranging in the 400 range. During hemodialysis today the patient had 1 L of fluid removed. The patient developed hypotension along with atrial fibrillation with rapid ventricular response and intermittent nonsustained ventricular tachycardia up to 6 beats. The patient received 1 mg of IV morphine when his blood pressure was starting to come up which he states took away his chest discomfort. He is now requesting more morphine. He states he has some chest discomfort again but appears very comfortable in bed. Echo 04/02/24: Mildly increased left ventricular cavity size. Moderately decreased left ventricular systolic function. Left ventricular ejection fraction is estimated at 40 %. There appeared to be mid to distal anterior wall and apical hypokinesis.Grade I/IV diastolic dysfunction (abnormal relaxation filling pattern), normal to mildly elevated filling pressures. Moderately increased left atrial size. Moderate mitral annular calcification. Moderately thickened mitral valve. Mild mitral valve regurgitation. Severe aortic valve calcification. Mild aortic valve stenosis, mean gradient 3.9 mmHg, JCARLOS 1.4 cm squared. No aortic valve regurgitation. There is no pericardial effusion. Medications/Allergies Home Medications ?Medication ?Instructions ?Recorded ?Confirmed ?Last Taken ?Type diphenhydramine HCl 25 mg tablet 50 mg PO DAILY PRN Allergy Symptoms 05/02/23 03/05/25 12/11/24 07:00 History (Benadryl Allergy) insulin lispro 100 unit/mL See Rx Instructions .Route .COMPLEX 05/02/23 03/05/25 02/25/25 History subcutaneous pen (Humalog KwikPen (U-100) Insulin) nitroglycerin 0.4 mg sublingual 0.4 mg sublingual Q5M PRN Chest 08/27/23 03/05/25 02/22/25 08:00 Rx tablet (Nitrostat) Pain #25 tabs vit B,C-folic ac 800 mcg-zinc 12.5 1 tab PO BEDTIME 10/29/23 03/05/25 02/24/25 History mg-selen-D3 2,000 unit-vit E tablet (RenaPlex-D) tizanidine 2 mg tablet 2 mg PO BID PRN Muscle Spasm 03/24/24 03/05/25 02/20/25 History promethazine 25 mg tablet 25 mg PO Q6H PRN Nausea 04/21/24 03/05/25 02/20/25 History acetaminophen 500 mg tablet 1,000 mg PO QID PRN Pain 06/04/24 03/05/25 12/05/24 History (Tylenol Extra Strength) apixaban 2.5 mg tablet (Eliquis) 2.5 mg PO BID 12/08/24 03/05/25 03/04/25 09:00 History gabapentin 300 mg capsule 300 mg PO BID 12/08/24 03/05/25 03/04/25 09:00 History insulin degludec 200 unit/mL (3 40 unit SUBCUT QAM 12/08/24 03/05/25 02/25/25 History mL) subcutaneous pen (Tresiba FlexTouch U-200 insulin) levothyroxine 88 mcg tablet 88 mcg PO QAM 12/08/24 03/05/25 03/04/25 07:00 History ranolazine 1,000 mg 1,000 mg PO BID 12/08/24 03/05/25 03/04/25 09:00 History tablet,extended release,12 hr blood-glucose sensor (Dexcom G7 #9 ea 12/14/24 03/05/25 Unknown Rx Sensor device) semaglutide 2 mg/dose (8 mg/3 mL) 2 mg (0.75 mL) SUBCUT Q7D #9 mL 01/01/25 03/05/25 02/28/25 Rx subcutaneous pen injector (Ozempic) hydrocodone 7.5 mg-acetaminophen 1 tab PO Q6H PRN Pain 01/07/25 03/05/25 02/20/25 History 325 mg tablet bumetanide 2 mg tablet 2 mg PO DAILY 02/22/25 03/05/25 03/04/25 08:00 History sacubitril 24 mg-valsartan 26 mg 2 tab PO DAILY 02/22/25 03/05/25 03/04/25 09:00 History tablet (Entresto) trazodone 100 mg tablet 300 mg PO BEDTIME PRN insomnia 02/22/25 03/05/25 03/03/25 20:00 History atorvastatin 80 mg tablet (Lipitor) 80 mg PO BEDTIME #30 tabs 02/24/25 03/05/25 03/03/25 19:00 Rx clopidogrel 75 mg tablet 75 mg PO DAILY #100 tabs 02/24/25 03/05/25 03/04/25 09:00 Rx dorzolamide 22.3 mg-timolol 6.8 1 drp ophthalmic (eye) BID 02/25/25 03/05/25 02/25/25 History mg/mL eye drops testosterone cypionate 200 mg/mL 200 mg IM .Q30D 02/25/25 03/05/25 02/05/25 History intramuscular oil amiodarone 200 mg tablet (Pacerone) 200 mg PO BID #60 tabs 02/28/25 03/05/25 03/04/25 08:00 Rx levofloxacin 500 mg tablet 500 mg PO Q48H #4 tabs 02/28/25 03/05/25 03/04/25 Rx metoprolol tartrate 25 mg tablet 12.5 mg (1/2 x 25 mg) PO 02/28/25 03/05/25 02/25/25 Rx BID@0900,2100 #30 tabs Allergies Allergy/AdvReac Type Severity Reaction Status Date / Time Iodinated Contrast Media Allergy Severe ALGY-Difficulty Verified 03/01/25 20:49 Breathing iodine Allergy Severe ALGY-Difficulty Verified 03/01/25 20:49 Breathing metoclopramide (From Reglan) Allergy Severe ALGY-Difficulty Verified 03/01/25 20:49 Breathing nalbuphine (From Nubain) Allergy Severe ADR-Diarrhe Verified 03/01/25 20:49 a naproxen (From Naprosyn) Allergy Severe ADR-Vomitin Verified 03/01/25 20:49 g Sulfa (Sulfonamide Allergy Severe ALGY-Difficulty Verified 03/01/25 20:49 Antibiotics) Breathing ketorolac Allergy Intermediate ADR-Nausea Verified 03/01/25 20:49 ondansetron (From Zofran) Allergy Intermediate ADR-Abdominal Verified 03/01/25 20:49 Pain prochlorperazine (From Allergy Intermediate ADR-Irritab Verified 03/01/25 20:49 Compazine) le codeine AdvReac Severe ALGY-Anaphy Verified 03/01/25 20:49 laxis haloperidol (From Haldol) AdvReac Intermediate ADR-Irritab Verified 03/01/25 20:49 le Current Medications Generic Name Dose Route Start Last Admin Trade Name Freq PRN Reason Stop Dose Admin Acetaminophen 650 mg 03/04/25 21:25 03/05/25 01:10 Acetaminophen 325 Mg Tablet PO 650 mg Q6H PRN Administration Mild/Mod Pain Or Temp >/= 101 Atorvastatin Calcium 80 mg 03/04/25 22:36 03/04/25 23:24 Atorvastatin 40 Mg Tablet PO 80 mg BEDTIME RANDY Administration Clopidogrel Bisulfate 75 mg 03/05/25 05:00 03/05/25 05:08 Clopidogrel 75 Mg Tablet PO 75 mg DAILY RANDY Administration Gabapentin 300 mg 03/05/25 05:00 03/05/25 17:16 Gabapentin 300 Mg Capsule PO 300 mg BID RANDY Administration Heparin Sodium (Porcine) 0 unit 03/05/25 10:56 03/05/25 11:38 Heparin 5,000 Unit/Ml Inj 1 Ml IVP 5,300 unit PRN PRN Administration Heparin Weight Based Protocol -Subsequent Bolus Protocol Heparin Sodium/Sodium Chloride 25,000 unit in 500 mls @ 0 mls/hr 03/05/25 11:00 03/05/25 18:07 Heparin Drip IV 0 unit/kg/hr CONT RANDY 0 mls/hr Protocol Titration Per Protocol Nitroglycerin/Dextrose 50 mg in 250 mls @ 0 mls/hr 03/05/25 12:15 03/05/25 17:17 Nitroglycerin Drip IV 20 mcg/min .Q0M RANDY 6 mls/hr Protocol Titration Per Protocol Insulin Human Lispro 0 unit 03/05/25 08:00 03/05/25 18:47 Insulin Lispro 100 Unit/1 Ml SUBCUT Not Given WM&BEDTIME ARNDY Protocol Levofloxacin 500 mg 03/04/25 22:30 03/04/25 23:24 Levofloxacin 500 Mg Tablet PO 03/07/25 23:59 500 mg Q48H RANDY Administration Protocol Levothyroxine Sodium 88 mcg 03/05/25 05:00 03/05/25 07:15 Levothyroxine 88 Mcg Tablet PO 88 mcg QAM RANDY Administration Metoprolol Tartrate 12.5 mg 03/05/25 09:00 03/05/25 09:45 Metoprolol Tartrate 25 Mg Tablet PO 12.5 mg BID@0900,2100 RANDY Administration Pantoprazole Sodium 40 mg 03/04/25 21:30 03/04/25 21:40 Pantoprazole 40 Mg Sdv IVP 40 mg Q24H RANDY Administration Ranolazine 1,000 mg 03/05/25 12:20 03/05/25 18:25 Ranolazine (12hr) 500 Mg Tablet PO 1,000 mg BID RANDY Administration Sacubitril/Valsartan 1 each 03/05/25 12:20 03/05/25 18:25 Sacubitril/Valsartan 24-26 Mg Tablet PO 1 each BID RANDY Administration Tizanidine HCl 2 mg 03/04/25 22:35 03/05/25 03:45 Tizanidine 4 Mg Tablet PO 2 mg BID PRN Administration Muscle Spasm Trazodone HCl 300 mg 03/04/25 22:28 03/04/25 23:25 Trazodone 100 Mg Tablet PO 300 mg BEDTIME PRN Administration INSOMNIA PFSH Acute PFSH: Medical History (Updated 03/04/25 @ 20:52 by John S Madison, DO) History of pulmonary embolism DVT (deep venous thrombosis) (~03/2020) Proximal left subclavian, basilic and brachial veins, started eliquis this stay, felt present prior to admission Chronic pain Paroxysmal atrial fibrillation Ischemic cardiomyopathy Contrast media allergy Thoracic disc disease Non-pressure chronic ulcer of other part of left foot limited to breakdown of skin Bilateral pes planus Hammertoe of left foot Rupture of extensor tendon of foot Kidney failure Type 2 diabetes mellitus with other circulatory complication, 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 Atherosclerotic heart disease of tetlin coronary artery with other forms of angina pectoris hx of CAD with prior stenting of proximal LAD, LCx, RCA End stage renal disease on dialysis Hypothyroidism Generalized anxiety disorder Major depressive disorder, recurrent severe without psychotic features Pericarditis Essential hypertension Psychiatric care 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 mellitus CRF (chronic renal failure) Chronic right SI joint pain Chronic systolic heart failure UTI (urinary tract infection) Peripheral arterial disease PVD (peripheral vascular disease) Worsening angina Angina at rest Uremic encephalopathy D-dimer, elevated Acute on chronic congestive heart failure Acute kidney injury superimposed on CKD GERD (gastroesophageal reflux disease) Alcohol use disorder, moderate, in sustained remission Chronic kidney disease -baseline Cr appears to be around 1.5 Onychodystrophy Chronic anticoagulation Eliquis Osteoarthritis of spine Hyperlipidemia Depression Anemia Foot drop, left H/O acute myocardial infarction Surgical History Peritoneal dialysis catheter in situ (06/15/21) History of appendectomy 1995 History of excision of mass 06/08/2019: Subcutaneous mass on back History of removal of Port-a-Cath Port-A-Cath in place H/O vasectomy Hx of cholecystectomy History of coronary artery stent placement 5x H/O skin graft History of inguinal hernia repair, bilateral 1999 H/O removal of testicle left H/O colonoscopy (11/14/20) 08/2015 H/O esophagogastroduodenoscopy (11/14/20) 08/2015 Family History Grandfather Cancer skin cancer Parkinson disease Brother Hypertension Father Heart disease Mother Hypertension Stroke Aneurysm Grandmother Aneurysm Other Crohn's disease Denies family history of Anesthesia complication Bleeding disorder Social History (Reviewed 03/01/25 @ 21:03 by AGBRIELLA Galaviz Smoking and tobacco/nicotine status: never used tobacco/nicotine Second hand smoke exposure: No Alcohol intake: former Year of sobriety/quit date alcohol: 2016 Former alcohol use details: Only holidays - last use 05.19.2015 Substance/Drug Use: former Date of last use: Young adult Former substance use details: Remote history of weed and cocaine brief Additional social history: Patient wants full CODE STATUS as discussed today with Jose Hightower MD on 02/25/2025 with his next of kin Chantale present at bedside Adopted: No Caregiver/support person: No Lives independently: Yes Household members: spouse Housing: Apartment Marital status: Number of children: 2 Number of grandchildren: 0 Highest education level completed: High School Graduate service: No Current occupational status: disabled 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 Pets and animals: Yes Pets & animals: dog(s) Leisure activites: games and other Leisure activities details: watching TV Sexually active: Yes Do you think of yourself as: Straight/Heterosexual Current gender identity: Male Shannon/Jew: Scientologist Special shannon needs: No Agree to transfusion: Yes Vitals/I&O/Wt Last Vital Signs Temp 98.9 F 03/05/25 16:00 Pulse 80 03/05/25 16:00 Resp 18 03/05/25 16:00 BP 128/43 03/05/25 16:00 Pulse Ox 98 03/05/25 14:59 O2 Del Method Nasal Cannula 03/05/25 06:00 O2 Flow Rate 2 03/05/25 06:00 03/05/25 03/05/25 03/05/25 06:59 14:59 22:59 Intake Total 600.90 / 600.90 204.717 / 805.617 Output Total 275 / 275 1625 / 1625 Balance -275 / -275 -1024.10 / -1024.10 204.717 / -819.383 Weight last 48 hrs Weight 233 lb 9.6 oz Weight 233 lb 9.6 oz Weight 216 lb Physical Exam Narrative: General: In no acute distress Neck: No jugular venous distention or carotid bruits Heart: Irregular rate and rhythm, no murmur, tachycardic Lungs: Normal respiratory effort with no use of intercostal muscles, clear lungs sounds to auscultation Extremities: No lower extremity edema Neuro: Alert and oriented x 3 Data 03/05/25 03:58 03/05/25 03:58 Other data: Pacemaker check 03/03/2025 Biotronik pacemaker No atrial or ventricular arrhythmias since February 25, 2025 A&P Assessment and plan 1. Chest pain: Possible ACS No acute ST-T abnormalities, chronic T wave flattening Prefers morphine over nitro for his chest pain IV heparin IV nitro on hold due to headache and hypotension during HD 2. Elevated troponin: trop in 400 range, higher than during CP admission that led to RCA stenting 02/23/25 when trop was 172 Interpretation of trops can be scewed in setting of ESRD and dialysis Check stat trop now if any significant increase since admission, will need repeat LHC continue IV heparin, plavix statin 3. Paroxysmal atrial fibrillation: Recurrence of afib with RVR during HD this afternoon with associated hypotension (SBPs in 80s) BP now up to 104/68 Give amio 150mg IV bolus now increase amio to 400mg bid resume metoprolol 12.5mg po bid once BP stabilizes to >100/60 on iv heparin 4. Wide-complex tachycardia: 6 beat run of NSVT when in afib today resume amio and metoprolol 5. Ischemic cardiomyopathy: last EF 40% by echo 03/2024 appears euvolemic on exam repeat echo 6. Implantable cardioverter-defibrillator (ICD) discharge: PDMP PDMP Reviewed: Not Reviewed Coding Level of Care Code Acute Code for g Fwd Diagnoses Chest pain R07.9 Elevated troponin R79.89 Paroxysmal atrial fibrillation I48.0 Wide-complex tachycardia R00.0 Ischemic cardiomyopathy I25.5 Implantable cardioverter-defibrillator (ICD) discharge Z45.02
[2025-03-05 19:08] LABS: Troponin T (5th) Once 438 ng/L (0-15)
--- NOTE | 2025-03-05 19:24 | PC.NURSE ---
1720 -- Ptt 157.2, notified Dr. Mariee, order given to stop heparin drip for 3 hours and then restart at half current rate. Heparin drip stopped. 1739 -- Patient noted to convert to A-fib with rate rate 120-140's. Blood pressuren 72/45. Nitro drip stopped. Reports chest pain 8 on 0-[address] Mariee to bedside, EKG done. HD in progress, DARRELL Pollack - HD nurse called Dr. Gar, order given to stop dialysis. Dr. Mariee told DARRELL Pollack to given 500mL NS. Dr. Mariee called Dr. Momin and discussed patients current cardiac status. 1821--Dr. Momin to bedside. 1914 -- Notified Dr. Momin of current troponin of 438, Amio bolus complete and patient remains in a-fib with rate 110-120's and continue to report chest pain 8 on 0-10 pain scale. Order given to increase PO amiodarone dose to 400mg PO BID with 1st dose now.
[2025-03-05] MEDS: epoetin alfa-epbx (ESRD) 1 ML 20 UNIT HE (20:43)
--- NOTE | 2025-03-05 20:45 | PC.NURSE ---
Metoprolol/Insulin Patient's blood pressure 110/44 MAP 66, 12.5 mg metoprolol tartrate due at 2100. Dr. Momin contacted; HR, heart rhythm, blood pressure, blood sugar of 289, insulin order with NPO status after midnight, and chest pain discussed. Orders received to administer metoprolol as ordered if systolic blood pressure >100, hold all insulin doses tonight, and to contact physician if patient became diaphoretic and/or nauseous with extreme chest pain.
[2025-03-05] MEDS: pantoprazole 40 mg SDV IVP (20:48)
--- NOTE | 2025-03-05 22:40 | PC.HD ---
18:00-Two hours into treatment, monitor showed change to irregular, fast rhythm with increased ectopy and hypotension. Pt c/o increased chest pain 8/10, headache, hurting all over, SOB, and anxiety. EKG done and Dr Jaylene sunshine per PACKER FUSER, in to see pt. Dr Paige sunshine with instructions to terminate treatment after 500ml fluid bolus (requested by Dr Mariee) given. Dr Momin at bedside post treatment termination, pt in no acute distress.
[2025-03-05] MEDS: fentaNYL 1,000 MCG/100 ML BAG 2.5 MCG (23:05)
[2025-03-05] MEDS: norepinephrine 4 MG/250 ML BAG 7.5 MG (23:05)
[2025-03-05 23:29] LABS: ABG PCO2 52.8 mmHg (35-45); ABG PH Result 7.30 (7.35-7.45); Alveolar-Arterial Oxygen Gradi 73.1 mmHg (5-10); Arterial Blood Gas Hematocrit 30.7 % (42-52); Blood Gas Allen Test Pos; Blood Gas Operator Identificat JDB; Blood Gas Sample Site Brachial, right; Blood Gas Sample Type Arterial; Carboxyhemoglobin 0.5 %THgb (0.4-20.1); Glucose Level-ABG 343.0 mg/dL (70-115); HCO3 ABG 25.7 mmol/L (22-26); Ionized Calcium Level - ABG 1.3 mmol/L (1.1-1.4); Methemoglobin 1.0 % (0.4-1.5); Oxygen Saturation ABG 93.1; PO2 ABG 81.8 mmHg (80.0-100.0); PO2 FiO2 Ratio Arterial Blood 81; Potassium Level - ABG 3.6 mmol/L (3.5-5.0); Sodium Level - ABG 138.0 mmol/L (131-143)
[2025-03-06] VITALS: PULSE 0; RESP 0
--- NOTE | 2025-03-06 | PC.NURSE ---
Addendum entered by Estefany Mondragon RN 03/06/25 02:16: Time of declared by Dr. Vail. Auscultation for 1 minute revealed no heart tones by this nurse and witnessed by DARRELL Davies. Original Note: PEA Bradycardia noted on control clerk head. Upon entering room, patient lying in floor unresponsive. Pulse check revealed no palpable pulse. CPR initiated and code blue called. Patient intubated at 2252. ROSC achieved at 2258. Verbal order received for fentanyl and levophed drip. See MAR for fentanyl and levophed management. PEA noted again and cpr initiated at 2310. ROSC at 2314. contacted and updated. Dr. Vail discussed patient condition with . Code status changed to AND. Palpable pulse lost once again. Official time of 2357. See Code Blue sheet for medications administered.
--- NOTE | 2025-03-06 00:35 | PC.NURSE ---
MTS MTS contacted; Delicia with MTS stated there was currently no event representative available for the referral process. MTS to contact hospital.
--- NOTE | 2025-03-06 01:00 | PC.NURSE ---
[facility] referral number [id number]. MTS to contact hospital with eligibility status.
--- NOTE | 2025-03-06 02:06 | PC.NURSE ---
Addendum entered by Katty Hutchison RN 03/06/25 02:07: Witnessed waste of fentanyl gtt Original Note: Fentanyl Fentanyl wasted with DARRELL Membreno.
--- NOTE | 2025-03-06 03:17 | P.DES_ITS ---
Discharge Providers DDS Date of Admission: 03/04/25 23:02 Date Summary Completed: 03/06/25 Attending Provider at Admission: Francisco Vail MD Time of : 22:58 Attending Provider at Discharge: Rafiq Mariee MD Primary Care Provider: Dez Evans MD Diagnoses Hospital Diagnoses 1. Chest pain: 2. Elevated troponin: 3. Paroxysmal atrial fibrillation: 4. Wide-complex tachycardia: 5. Ischemic cardiomyopathy: 6. Implantable cardioverter-defibrillator (ICD) discharge: Reason for Visit Reason for Visit chest pain Brief History: Patient admitted as a case of chest pain which was atypical in nature and continues from the last 10 to 12 hours. Based on his chronic artery disease and recent stenting he was admitted. The patient also further missed his 1 session of dialysis and was reported to have mild shortness of breath. He was admitted and his troponins leak was present however delta Trop was insignificant therefore continued on his home medications and further monitoring after discussing with the patient and plan implemented accordingly by the technical report writer. When I saw the patient during admission in the ER his chest pain was stabilized after morphine and nitrates with nonsignificant EKG changes and insignificant delta Trope rise from the time of his stenting. The patient requested to stay 1 more day for his dialysis session and to monitor his chest pain. When I admitted the patient and discussed about his code the patient informed that he would like to have an initial trial to save his life however if it is poor prognosis then to make him at comfort. He appreciated the management at that time of admission. In the morning the patient was having ongoing chest pain and was started on heparin infusion since his troponin trend continue to rise and cardiology also evaluated. The patient during dialysis had ectopics and irregular rhythm. And was in ICU being managed accordingly. Around 22:50 CODE BLUE was announced and CPR was initiated and the patient was intubated at 22: 52. Initial rhythm was PEA. ROSC was achieved after implementation of ACLS protocol at 22: 58. The patient started to make some movements however those were nonpurposeful movements. Pupils were dilated. An adequate pulse and blood pressure was achieved. Bedside POCUS showed hyperdynamic rhythm of the left ventricle and no RV dilation. No regional wall motion abnormalities could be appreciated in that hyperdynamic rhythm. It was decided to start the patient on normothermia protocol with fentanyl and sedation and nor epi to maintain blood pressure. The patient again coded around 23: 10 and CPR was started as per ACLS protocol with ROSC achieved at 23: 40. Again bedside POCUS was done for the heart and did not show any PE with hyperdynamic function of the left ventricle. Nurses and I called the was called for his current condition the further explained that her would prefer to be at comfort with such medical critical situation. Therefore his CODE STATUS was changed to DNR the patient later on again lost his pulse with official time of 23: 58. Bedside POCUS was done and did not show any heart rhythms. Heart auscultation did not reveal any sounds. No brainstem reflexes were present. The was called and he was on her way condolences were provided. The appreciated the management of the team and agreed with their care. May the soul rest in peace Summary Date and Time of Date of : 03/05/25 Time of : 22:58 Summary Summary: Around 22:50 CODE BLUE was announced and CPR was initiated and the patient was intubated at 22: 52. Initial rhythm was PEA. ROSC was achieved after implementation of ACLS protocol at 22: 58. The patient started to make some movements however those were nonpurposeful movements. Pupils were dilated. An adequate pulse and blood pressure was achieved. Bedside POCUS showed hyperdynamic rhythm of the left ventricle and no RV dilation. No regional wall motion abnormalities could be appreciated in that hyperdynamic rhythm. It was decided to start the patient on normothermia protocol with fentanyl and sedation and nor epi to maintain blood pressure. The patient again coded around 23: 10 and CPR was started as per ACLS protocol with ROSC achieved at 23: 40. Again bedside POCUS was done for the heart and did not show any PE with hyperdynamic function of the left ventricle. Nurses and I called the was called for his current condition the further explained that her would prefer to be at comfort with such medical critical situation. Therefore his CODE STATUS was changed to DNR the patient later on again lost his pulse with official time of 23: 58. Bedside POCUS was done and did not show any heart rhythms. Heart auscultation did not reveal any sounds. No brainstem reflexes were present. The was called and he was on her way condolences were provided. The appreciated the management of the team and agreed with their care. May the soul rest in peace Additional Data Advance directives?: Yes Discharge Plan Discharge Patient Disposition: Condition: Stable Probable Cause of Probable cause of : Cardiac arrest DS Attestations Time Spent in /Discharge Care*: greater than 30 min Quality - AMI: AMI present?: Yes Clinical Trial Participant: No Quality - Stroke: CVA present?: No Quality - VTE: VTE present?: No Deep Vein Thrombosis/Pulmonary Embolism Present on Admission: No Coding Level of Care Code Critical Care >/= 30 minutes Diagnoses Chest pain R07.9 Elevated troponin R79.89 Paroxysmal atrial fibrillation I48.0 Wide-complex tachycardia R00.0 Ischemic cardiomyopathy I25.5 Implantable cardioverter-defibrillator (ICD) discharge Z45.02
--- NOTE | 2025-03-06 03:28 | PC.NURSE ---
MTS Per MTS bilingual call center representative Chelsie, patient is eligible for tissue donation. Morgue time 0245.
--- NOTE | 2025-03-06 07:58 | PC.NURSE ---
Pts body was picked up by [facility] at [id number].
== END 2025-03-06 02:47 | disposition expired ==
LOC: ER 20:19 → ER IP 23:04 → ICU 03-05 03:08
PROVIDERS: Admitting Provider Student in an Organized Health Care Education/Training Program; Emergency Provider Student in an Organized Health Care Education/Training Program; PCP Family Medicine; Visit Provider Student in an Organized Health Care Education/Training Program
DX: I48.0 Paroxysmal atrial fibrillation (principal); R00.0 Tachycardia, unspecified; I25.5 Ischemic cardiomyopathy; Z45.02 Encounter for adjustment and management of automatic implantable cardiac defibrillator; R79.89 Other specified abnormal findings of blood chemistry; Z66 Do not resuscitate; Z79.4 Long term (current) use of insulin; Z79.891 Long term (current) use of opiate analgesic; Z86.711 Personal history of pulmonary embolism; E03.9 Hypothyroidism, unspecified; E11.22 Type 2 diabetes mellitus with diabetic chronic kidney disease; I13.2 Hypertensive heart and chronic kidney disease with heart failure and with stage 5 chronic kidney disease, or end stage renal disease; N18.6 End stage renal disease; I50.22 Chronic systolic (congestive) heart failure; E78.5 Hyperlipidemia, unspecified; Z79.01 Long term (current) use of anticoagulants; I25.2 Old myocardial infarction
CPT/HCPCS: 36415; 36416; 36591; 36600; 71045; 80051; 80053; 82330; 82805; 82962; 83880; 84484; 85025; 85730; 90935; 93005; 96365; 96367; 96372; 96374; 96375; 96376; 99285; A4222; G0378; J0283; J1644; J1938; J2270; J2470; J3010; J3490; J9999; Q3014; Q5105